=== PATIENT | female | born 1960 | race Caucasian/White ===

== ENCOUNTER 2022-10-01 08:36 | Outpatient (OUT) | payer BC, SELFPAY ==
[2022-10-01 09:01] LABS: Basophils Absolute Auto 0.1 10^3/uL (0.0-0.1); Basophils Percent Auto 1.1 % (0.2-2.0); Eosinophils Absolute Auto 0.3 10^3/uL (0.0-0.7); Eosinophils Percent Auto 3.4 % (0.9-7.0); Hematocrit 41.8 % (36.0-48.0); Hemoglobin 14.3 g/dL (12.0-16.0); Immature Granulocytes Abs Auto 0.02 10^3/uL (0.00-0.03); Immature Granulocytes Pct Auto 0.2 % (0.0-0.5); Lymphocytes Absolute Auto 1.7 10^3/uL (1.2-3.8); Lymphocytes Percent Auto 19.9 % (20.5-60.0); Mean Corpuscular HGB Conc 34.2 g/dL (29.9-35.2); Mean Corpuscular Hemoglobin 31.3 pg (26.7-34.0); Mean Corpuscular Volume 91.5 fL (81.0-99.0); Mean Platelet Volume 8.7 fL (9.5-13.5); Monocytes Absolute Auto 0.5 10^3/uL (0.3-0.8); Monocytes Percent Auto 5.5 % (1.7-12.0); Neutrophils Absolute Auto 5.8 10^3/uL (1.4-6.5); Neutrophils Percent Auto 69.9 % (43.0-75.0); Platelet Count 238 10^3/uL (150-450); Red Blood Count 4.57 10^6/uL (4.20-5.40); Red Cell Distribution Width 12.2 % (11.0-15.0); White Blood Count 8.3 10^3/uL (4.0-11.0)
[2022-10-01 09:38] LABS: Erythrocyte Sedimentation Rate 19 mm/hr (<=30)
[2022-10-01 10:59] LABS: Alanine Aminotransferase 14 U/L (14-59); Albumin Level 3.8 g/dL (3.4-5.0); Alkaline Phosphatase 85 U/L (46-116); Aspartate Amino Transferase 17 U/L (15-37); BUN Creatinine Ratio 18.1; Bilirubin Total 0.2 mg/dL (0.2-1.0); Calcium 8.9 mg/dL (8.5-10.1); Carbon Dioxide 27.1 mmol/L (21.0-32.0); Chloride 99 mmol/L (98-107); Estimated GFR (African America >60 (>=60); Estimated GFR (Non-African Ame >60 (>=60); Globulin 3.7 g/dL; Glucose 121 mg/dL (74-106); Potassium 4.1 mmol/L (3.5-5.1); Sodium 135 mmol/L (136-145); Total Protein 7.5 g/dL (6.4-8.2)
== END 2022-10-01 08:37 | disposition home or self-care (01) ==
LOC: LAB 08:37
PROVIDERS: PCP Family Medicine
DX: M13.0 Polyarthritis, unspecified (principal); R76.0 Raised antibody titer; Z79.899 Other long term (current) drug therapy
CPT/HCPCS: 36415; 80053; 85025; 85652

== ENCOUNTER 2022-12-23 17:23 | Emergency (ER) | payer OTHER, BC, SELFPAY ==
[2022-12-23 17:29] VITALS: BP 152/94; PULSE 102; RESP 20; TEMP 36.6; O2SAT 100; BMI 39.0
--- NOTE | 2022-12-23 17:39 | PC.NURSE ---
fall on right side buttocks with c/o pain to right side buttocks, and right hip. No redness, swelling or bruising to site. pt ambulates with a limp
--- NOTE | 2022-12-23 17:41 | PC.NURSE ---
small red area to lower back of head, skin intact and pt denies LOC. Pt alert and oriented at this time
[2022-12-23 18:17] VITALS: BP 155/92; PULSE 90; RESP 18; O2SAT 99
--- NOTE | 2022-12-23 18:33 | XR_ITS ---
The [address] [address] Patient Name: NICOLAS HARRIS MRN: [id number] date: 1960 Sex: F Assigned Patient Location: ED.MAIN Current Patient Location: ER Accession/Order Number: [id number] Exam Date: 12/23/2022 19:02 Report Date: 12/23/2022 19:30 At the request of: JUNIE MARTÍNEZ Procedure: XR hip RT 2V w/ pelvis EXAM: XR hip RT 2V w/ pelvis HISTORY: Fall COMPARISON: X-rays 10/13/2019 TECHNIQUE: AP pelvis and 2 views of the right hip FINDINGS: No fracture, dislocation, subluxation or osseous lesion. Moderate right hip joint space narrowing and osteophytes. Mild left hip joint degenerative changes. The pubic symphysis and sacroiliac joints are unremarkable. Postoperative changes at L4-L5. XR/XR hip RT 2V w/ pelvis IMPRESSION: Right greater than left hip degenerative changes with no visualized acute irregularity. Electronically authenticated by: YANY MCCORD Date: 12/23/2022 19:30
--- NOTE | 2022-12-23 18:42 | CT_ITS ---
The [address] [address] Patient Name: NICOLAS HARRIS MRN: [id number] date: 1960 Sex: F Assigned Patient Location: ER Current Patient Location: ER Accession/Order Number: [id number] Exam Date: 12/23/2022 18:52 Report Date: 12/23/2022 19:15 At the request of: JUNIE MARTÍNEZ Procedure: CT head/brain wo con EXAM: CT head/brain wo con HISTORY: chi . This is a 62-year-old with multiple episodes of falling down and head injuries. The patient is on blood thinners. COMPARISON: None. TECHNIQUE: Multi slice thin computed tomograms of the head were obtained, with sagittal and coronal reconstructions. FINDINGS: The ventricles are not enlarged, the lateral ventricles are symmetric and the third ventricles in the midline. The sylvian fissures and cortical sulci are unremarkable. There is no evidence of an intracranial hemorrhage, mass lesion or apparent acute infarct. The cerebellum and visualized brainstem are intact. The visualized paranasal sinuses are clear. The frontal sinuses are undeveloped. The middle ears are aerated. The mastoid sinuses are clear. There is no apparent acute skull fracture. CT/CT head/brain wo con IMPRESSION: There is no evidence of an intracranial hemorrhage, mass lesion or apparent acute infarct. The visualized paranasal sinuses are clear. There is no apparent acute skull fracture. Comparison with a previous study may be helpful. If further evaluation is clinically indicated at this time than perhaps an MRI the brain would be helpful. Electronically authenticated by: MAI TANNER Date: 12/23/2022 19:15
--- NOTE | 2022-12-23 18:42 | ECG_ITS ---
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
--- NOTE | 2022-12-23 18:47 | ED_ITS ---
HPI - General Adult General Chief complaint: Extremity Injury, Lower Stated complaint: hip injury, back of head..on blood thinners Source: patient Mode of arrival: walk-in Limitations: no limitations History of Present Illness HPI narrative: Patient is a 62yo Female who is presenting to the Emergency Room with chief complaint of a worker's comp injury along with A near syncopal episode. 3:30 Friday morning, patient was at work, she works in a [employer]. They have new slippery wood floors. Patient went to go sit down, the chair slid out from underneath her, she had fallen and landing on her right buttocks/right hip. She did hit the back of her head as well. Patient does take a look was 20 mg a day for blood clots. Patient currently does not have a headache or neck pain. Patient is complaining of right buttock pain, right hip pain that does not radiate. Patient then last evening while at home had lightheaded dizzy spell where she fell again. 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 Kvng garcia had no vertigo. She has no headache. However patient did lose her balance and fell again landing on her right buttock/hip, hitting the back of her head again on a hard object. Patient currently has no headache. No neck pain. No chest pain or shortness of breath. Most the patient's pain is to the right buttock, right hip area. Patient stated that she filled out worker's comp paperwork for the fall early Friday morning at 3:30 AM. The 2nd fall happened at home last evening. 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 All systems are negative except as noted/marked. All systems reviewed and otherwise negative. . Nurses note and vital signs reviewed and patient is not hypoxic. General: The patient appears well and in no apparent distress. Patient is resting comfortably on cart. Patient is not toxic, lethargic, or listless Skin: Warm, dry, no pallor noted. There is no rash noted. No petechiae, purpura. Head: Normocephalic, atraumatic Eye: Normal conjunctiva, no drainage, EOMI. PERRL Ears, Nose, Mouth, and Throat: oral mucosa is moist. Nares patent. Mouth without vesicles. Cardiovascular: Regular Rate and Rhythm, no murmur, gallop, rub Respiratory: Patient is in no distress, no accessory muscle use, lungs are c lear to auscultation, no wheezing, rales or rhonchi Back: Patient has moderate tendernness to palpation to the right gluteus misty, patient has no ecchymosis or hematomas palpated to the right gluteus misty. Patient has moderate tenderness to palpation to the right piriformis muschle, positive straight leg raising test on the right. Patient has chronic pain to bilateral knees and ankles secondary to arthritis and age per patient history. No new injury from the fall at work or at home last evening. Patient has no signs of saddle and a seizure cauda equina. no CVA tenderness bilaterally to percussion. No CT LS midline pain GI: soft, obese, no tenderness to palpation, no masses appreciated. No rebound, guarding, or rigidity noted. No flank pain bilateral, No distention Musculoskeletal: Patient has full range of motion of all of the extremities He says right lower extremity. 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 Otherwise no motor, sensory, or focal neurological deficits Neurological: A&O x3, normal speech Psychiatric: Cooperative Related Data Allergies Allergy/AdvReac Type Severity Reaction Status Date / Time Sulfa (Sulfonamide Allergy Intermediate Verified 12/23/22 17:34 Antibiotics) Exam Constitutional Vital Signs, click to edit/add: Last Vital Signs Temp 97.9 F 12/23/22 17:29 Pulse 90 12/23/22 18:17 Resp 18 12/23/22 18:17 BP 155/92 H 12/23/22 18:17 Pulse Ox 99 12/23/22 18:17 O2 Del Method Room Air 12/23/22 17:29 Course Vital Signs Vital signs: Vital Signs Temperature 97.9 F 12/23/22 17:29 Pulse Rate 102 H 12/23/22 17:29 Respiratory Rate 20 12/23/22 17:29 Blood Pressure 152/94 H 12/23/22 17:29 Pulse Oximetry 100 12/23/22 17:29 Oxygen Delivery Method Room Air 12/23/22 17:29 Temperature 97.9 F 12/23/22 17:29 Pulse Rate 90 12/23/22 18:17 Respiratory Rate 18 12/23/22 18:17 Blood Pressure 155/92 H 12/23/22 18:17 Pulse Oximetry 99 12/23/22 18:17 Oxygen Delivery Method Room Air 12/23/22 17:29 Medical Decision Making MDM Narrative Medical decision making narrative: 2100 Patient will be transitioned to Dr. Luis through the patient's CT of the brain, x-ray, lab work, fell out Worker's Comp. paperwork, and disposition the patient.. ECG Data Attestation: I personally reviewed and interpreted this ECG as follows: (EKG interpretation. Normal sinus rhythm at 99 beats a minute. Normal axis deviation. No acute ST elevation, no acute ectopy. QTC of 396. Nonspecific ST changes.) Discharge Plan Discharge Patient Disposition: Still a Patient
[2022-12-23] MEDS: 0.9 % SODIUM CHLORIDE 1,000 ML 1000 ML IV (19:11)
[2022-12-23 19:35] LABS: Basophils Absolute Auto 0.1 10^3/uL (0.0-0.1); Basophils Percent Auto 0.8 % (0.2-2.0); Eosinophils Absolute Auto 0.1 10^3/uL (0.0-0.7); Eosinophils Percent Auto 0.9 % (0.9-7.0); Hemoglobin 15.5 g/dL (12.0-16.0); Immature Granulocytes Abs Auto 0.04 10^3/uL (0.00-0.03); Immature Granulocytes Pct Auto 0.4 % (0.0-0.5); Lymphocytes Absolute Auto 1.4 10^3/uL (1.2-3.8); Lymphocytes Percent Auto 15.5 % (20.5-60.0); Mean Corpuscular HGB Conc 33.7 g/dL (29.9-35.2); Mean Corpuscular Hemoglobin 31.7 pg (26.7-34.0); Mean Corpuscular Volume 94.1 fL (81.0-99.0); Mean Platelet Volume 8.8 fL (9.5-13.5); Monocytes Absolute Auto 0.5 10^3/uL (0.3-0.8); Monocytes Percent Auto 5.8 % (1.7-12.0); Neutrophils Percent Auto 76.6 % (43.0-75.0); Platelet Count 274 10^3/uL (150-450); Red Blood Count 4.89 10^6/uL (4.20-5.40); Red Cell Distribution Width 12.3 % (11.0-15.0); White Blood Count 9.2 10^3/uL (4.0-11.0)
--- NOTE | 2022-12-23 19:45 | PC.NURSE ---
this rn taking over patient care at this time. pt states that on friday going into friday morning at 3:30am pt was working at the [email or web address] and patient slipped out of chair and fell onto right hip and hit the back of her head. pt is on Eliquis for past blood clots. pt states that she filled out workmans comp paper work but was never seen in ER. pt states that friday morning around 7am she was in her bedroom at home and had a dizzy/lightheaded spell and fell. pt states she is unsure if she passed out or not. pt states the second time she fell she fell onto right hip again and hit the back of her head on a hard object. . pt states the reason for coming in tonight is because she fell a second time and was having pain to her right hip. pt denies any pain to head or neck at this time.
[2022-12-23 20:03] LABS: Troponin I High Sensitivity 108.7 pg/mL (4.0-51.3)
[2022-12-23 20:04] LABS: Anion Gap 9.5; Carbon Dioxide 25.5 mmol/L (21.0-32.0); Chloride 95 mmol/L (98-107); Glucose 117 mg/dL (74-106); Sodium 126 mmol/L (136-145)
[2022-12-23 20:05] LABS: BUN Creatinine Ratio 17.9; Calcium 8.7 mg/dL (8.5-10.1); Estimated GFR (African America >60 (>=60); Estimated GFR (Non-African Ame >60 (>=60)
[2022-12-23] MEDS: 0.9 % SODIUM CHLORIDE 1,000 ML 999 ML IV (20:20)
[2022-12-23 20:22] VITALS: BP 137/90; PULSE 98
[2022-12-23 21:32] VITALS: BP 150/67; PULSE 86
[2022-12-23 22:36] LABS: Troponin I High Sensitivity 111.8 pg/mL (4.0-51.3)
[2022-12-23 22:51] VITALS: BP 137/81; PULSE 96
[2022-12-24 00:22] VITALS: BP 150/90; PULSE 102
[2022-12-24] MEDS: ACETAMINOPHEN 325 MG TABLET 1000 MG PO (01:18)
== END 2022-12-24 01:47 | disposition short-term general hospital (02) ==
PROVIDERS: Emergency Medicine; Emergency Provider Internal Medicine; PCP Family Medicine
DX: S70.01XA Contusion of right hip, initial encounter (principal); S09.90XA Unspecified injury of head, initial encounter; R55 Syncope and collapse; R79.89 Other specified abnormal findings of blood chemistry; W19.XXXA Unspecified fall, initial encounter; G90.A Postural orthostatic tachycardia syndrome [POTS]; Z79.01 Long term (current) use of anticoagulants; E66.9 Obesity, unspecified; Z68.39 Body mass index [BMI] 39.0-39.9, adult
CPT/HCPCS: 36415; 70450; 73502; 80048; 84484; 85025; 93005; 96360; 96361; 99285

== ENCOUNTER 2023-02-26 15:54 | Outpatient (OUT) | payer BC, SELFPAY ==
[2023-02-26 16:11] LABS: Basophils Absolute Auto 0.1 10^3/uL (0.0-0.1); Basophils Percent Auto 1.3 % (0.2-2.0); Eosinophils Absolute Auto 0.2 10^3/uL (0.0-0.7); Eosinophils Percent Auto 3.2 % (0.9-7.0); Hematocrit 43.2 % (36.0-48.0); Hemoglobin 14.4 g/dL (12.0-16.0); Immature Granulocytes Abs Auto 0.01 10^3/uL (0.00-0.03); Immature Granulocytes Pct Auto 0.2 % (0.0-0.5); Lymphocytes Absolute Auto 1.4 10^3/uL (1.2-3.8); Lymphocytes Percent Auto 25.4 % (20.5-60.0); Mean Corpuscular HGB Conc 33.3 g/dL (29.9-35.2); Mean Corpuscular Volume 93.1 fL (81.0-99.0); Monocytes Absolute Auto 0.4 10^3/uL (0.3-0.8); Monocytes Percent Auto 6.6 % (1.7-12.0); Neutrophils Absolute Auto 3.5 10^3/uL (1.4-6.5); Neutrophils Percent Auto 63.3 % (43.0-75.0); Platelet Count 259 10^3/uL (150-450); Red Blood Count 4.64 10^6/uL (4.20-5.40); Red Cell Distribution Width 12.4 % (11.0-15.0); White Blood Count 5.6 10^3/uL (4.0-11.0)
[2023-02-26 16:21] LABS: Erythrocyte Sedimentation Rate 11 mm/hr (<=30)
[2023-02-26 16:58] LABS: Alanine Aminotransferase 23 U/L (14-59); Albumin Globulin Ratio 1.1; Albumin Level 3.8 g/dL (3.4-5.0); Alkaline Phosphatase 89 U/L (46-116); Anion Gap 10.1; Aspartate Amino Transferase 18 U/L (15-37); BUN Creatinine Ratio 17.9; Bilirubin Total 0.4 mg/dL (0.2-1.0); Calcium 8.8 mg/dL (8.5-10.1); Carbon Dioxide 31.3 mmol/L (21.0-32.0); Chloride 100 mmol/L (98-107); Estimated GFR (African America >60 (>=60); Estimated GFR (Non-African Ame >60 (>=60); Globulin 3.5 g/dL; Glucose 111 mg/dL (74-106); Potassium 4.4 mmol/L (3.5-5.1); Sodium 137 mmol/L (136-145); Total Protein 7.3 g/dL (6.4-8.2)
== END 2023-02-26 15:55 | disposition home or self-care (01) ==
PROVIDERS: PCP Family Medicine; Visit Provider Registered Nurse
DX: M13.0 Polyarthritis, unspecified (principal); Z79.899 Other long term (current) drug therapy; R78.0 Finding of alcohol in blood
CPT/HCPCS: 36415; 80053; 85025; 85652

== ENCOUNTER 2023-06-04 13:11 | Outpatient (OUT) | payer BC, SELFPAY ==
--- OUTSIDE RECORDS SUMMARY | 2023-06-04 13:20 | XMS_ITS | CCD ---
Author Name Unknown Address [address] [place] [address] Organization [facility] Care Team Providers Care [employer] Administrator Name Role Phone Merissa Chaudhary Primary Care Provider [phone] Sidra Potter Attending Provider MERISSA CHAUDHARY Primary Care Physician Merissa Chaudhary Unavailable MISC, DR HALEY Admitting Unavailable MISC, DR HALEY Attending Unavailable MERISSA CHAUDHARY Primary Care Unavailable MISC, DR HALEY Consulting Unavailable MISC, DR HALEY Admitting Unavailable MISC, DR HALEY Attending Unavailable MERISSA CHAUDHARY Primary Care Unavailable MISC, DR HALEY Consulting Unavailable MISC, DR HALEY Admitting Unavailable MISC, DR HALEY Attending Unavailable MERISSA CHAUDHARY Primary Care Unavailable MISC, DR HALEY Consulting Unavailable MERISSA CHAUDHARY Admitting Unavailable MERISSA CHAUDHARY Attending Unavailable MERISSA CHAUDHARY Primary Care Unavailable MERISSA CHAUDHARY Consulting Unavailable Virgilio Mckeon Unavailable JENNIFER ALARCON Attending Unavailable MILAGRO MANN Attending Unavailable MD Merissa Chaudhary Primary Care Provider MD Froilan Brown Admit Provider MD Petr Kowalski Attending Provider MD Merissa Chaudhary Primary Care Provider MD Froilan Brown Admit Provider MD Petr Kowalski Attending Provider Community, Outreach Attending Provider [phone] Petr Kowalski Attending Unavailable Froilan Brown Admitting Unavailable Merissa Chaudhary Primary Care Unavailable Chaudhary, Merissa E Primary Care Unavailable Community, Outreach Admitting Unavailable Community, Outreach Attending Unavailable MD Merissa Chaudhary Primary Care Provider [phone] GOLDIE, YANY Jc Attending Unavailable POCOS, YANY Jc Referring Unavailable POCOS, YANY Jc Referring Unavailable Pocos, Yany Jc Attending Unavailable Pocos, Yany Jc Referring Unavailable MERISSA CHAUDHARY Consulting Unavailable Pocos, Yany Jc Admitting Unavailable Pocos, Yany Jc Attending Unavailable Pocos, Yany Jc Referring Unavailable MERISSA CHAUDHARY Consulting Unavailable Allergies Allergy Classification Reported Allergen(s) Allergy Type Date of Onset Reaction(s) Facility Unclassified (1 source) Allergy to substance [facility] (13 sources) Codeine Drug Allergy Unknown [facility] Other (14 sources) Metoclopramide Drug Allergy 05-08-19 24 Unknown, Hives [facility] (13 sources) Sulfamethoxazole / Trimethoprim Drug Allergy Unknown [facility] Other (13 sources) Sulfonamides (Antibiotic) Drug allergy rash [facility] Other (3 sources) Codeine; Translations: [CODEINE] Drug Allergy 04-06-19 14 Hives [facility] Repository (1 source) Iothalamate Drug Allergy 04-06-19 14 [facility] Repository (1 source) Morphine Drug Allergy 04-12-19 14 [facility]ository (1 source) Sulfonamides (Antibiotic) Drug allergy (disorder) 04-06-19 14 [facility] (1 source) Metoclopramide; Translations: [METOCLOPRAMIDE HCL] Drug Allergy 03-11-[address] [facility] Repository (5 sources) Sulfonamides (Antibiotic); Translations: [SULFA (SULFONAMIDE ANTIBIOTICS)] Propensity to adverse reactions to drug (disorder) 03-11-20 14 Hives, Hives, rash [facility] (5 sources) Codeine Drug Allergy 02-25-20 14 Unknown [facility] Other (1 source) Codeine Drug Allergy 12-28-19 [facility] Repository (1 source) Metoclopramide Drug Allergy 12-28-19 [facility] (2 sources) Sulfamethoxazole Drug Allergy 12-28-19 [facility] Repository (2 sources) Trimethoprim Drug Allergy 12-28-19 [facility] Repository Medications Current Medications Medication Drug Class(es) Dates Sig (Normalized) Sig (Original) acetaminophen 500 mg oral tablet (3 sources) Start: 12-24-2022 take 500 mg by mouth twice daily Acetaminophen Active 500 MG PO Twice daily December 23, 2022 11:00pm acetaminophen 325 mg / HYDROcodone bitartrate 5 mg oral tablet (9 sources) Opioid Agonist Start: 02-12-2023 take 1 tablet by mouth every six hours HYDROcodone-Acetami nophen 5-325 MG 1 tablet as needed Orally every 6 hrs for 7 days Jan, Active Start: 09-12-2022 take 1 tablet by veronica th every six hours HYDROcodone-Acetaminophen 5-325 MG 1 tab let as needed Orally every 6 hrs for 30 days pt will pay out of pocket for entire amount Aug, Active Start: 04-29-2022 take 1 tablet by veronica th every six hours HYDROcodone-Acetaminophen 5-325 MG 1 tab let as needed Orally every 6 hrs for 30 days Apr, Active 24 hr amphetamine aspartate 2.5 mg / amphetamine sulfate 2.5 mg / dextroamphetamine saccharate 2.5 mg / dextroamphetamine sulfate 2.5 mg extended release oral capsule (2 sources) Central Nervous System Stimulant Start: 12-27-2022 take 1 capsule by mouth every twenty-four hours Adderall XR 10 MG 1 capsule in the morning Orally Once a day for 30 days Dec, Active hydroxychloroquine sulfate 200 mg oral tablet (17 sources) Antimalarial, Antirheumatic Agent Start: 05-20-2018 take 200 mg by mouth twice daily Hydroxychloroquine Active 200 MG PO Twice daily May 20, 2018 12:00am lamoTRIgine 150 mg oral tablet (14 sources) Mood Stabilizer, Anti-epileptic Agent Start: 05-20-2018 take 150 mg by mouth once daily Lamotrigine Active 150 MG PO Daily May 20, 2018 3:39pm Start: 05-20-2018 take 200 mg by mouth once yolanda y Lamotrigine Active 200 MG PO Daily May 20, 2018 12:00am take 1 tablet by veronica th every twenty-four hours lamoTRIgine 200 MG 1 tablet Orally Once a day for 90 days Active 24 hr metoprolol succinate 100 mg extended release oral tablet (20 sources) beta-Adrenergic Na Start: 05-20-2018 take 100 mg by mouth once daily Metoprolol Succinate Active 100 MG PO Daily May 20, 2018 3:39pm Start: 05-20-2018 take 50 mg by mouth once daily Metoprolol Succinate Active 50 MG PO Daily May 20, 2018 12:00am take 1 tablet by veronica every twenty-four hours Metoprolol Succinate ER 50 MG 1 tablet Orally Once a day Active Metoprolol Tartr ate Not-Taking midodrine hydrochloride 2.5 mg oral tablet (3 sources) alpha-Adrenergic Agonist take 1 tablet by mouth every eight hours Midodrine HCl 2.5 MG 1 tablet three times a day Active mupirocin 0.02 mg/mg topical ointment (13 sources) RNA Synthetase Inhibitor Antibacterial Start: Mupirocin 2 % 1 application Externally Twice a day for 5 day(s) Apr, Active pyridostigmine bromide 60 mg oral tablet (20 sources) Start: take 120 mg by mouth four times daily Pyridostigmine [place] Active 120 MG PO Four times daily December 23, 2022 11:00pm Start: 12-24-2022 End: 12-24-2022 take 120 mg by mouth once daily Pyridostigmine [place] Discontinued 120 MG PO Daily December 23, 2022 11:00pm December 24, 2022 7:13am Start: 12-24-2022 End: 05-08-2023 take 120 mg by mouth twice daily Pyridostigmine [place] Discontinued 120 MG PO Twice daily 0 December 23, 2022 11:00pm May 08, 2023 3:09pm take 2 tablets by mo [facility] every six hours pyRIDostigmine [place] 60 MG 2 tablets Orally 4 times a day Active take 1 tablet by veronica every four hours Pyridostigmine [place] 60 MG 1 tablet Orally every 4 hrs Active rivaroxaban 20 mg oral tablet (16 sources) Factor Xa Inhibitor Start: 12-24-2022 Rivaroxaban (Xarelto) 20 mg tablet Active 20 MG TABLET December 23, 2022 11:00pm rOPINIRole 0.5 mg oral tablet (5 sources) Nonergot Dopamine Agonist take 1 tablet by mouth once daily at bedtime rOPINIRole HCl 0.5 MG 1 tablet 1 to 3 hours before bedtime Orally Once a day Active SITagliptin 100 mg oral tablet (16 sources) Dipeptidyl Peptidase 4 Inhibitor Start: 12-24-2022 take 1 tablet by mouth once daily Sitagliptin Phosphate (Januvia) 100 mg tablet Active 100 MG PO Daily December 23, 2022 11:00pm sodium chloride 1000 mg oral tablet (2 sources) take 1 tablet by mouth every twenty-four hours Sodium Chloride 1 GM 1 tablet Orally daily for 90 days Active temazepam 15 mg oral capsule (9 sources) Benzodiazepine Start: 05-08-2023 take 1 capsule by mouth once daily at bedtime Temazepam (Restoril) 15 mg capsule Active 15 MG PO Daily at bedtime May 08, 2023 12:00am Start: 09-12-2022 take 1 capsule by mo uth every twenty-four hours Temazepam 15 MG 1 capsule at bedtime as needed Orally Once a day for 30 days Aug, Active tiZANidine 4 mg oral tablet (5 sources) Central alpha-2 Adrenergic Agonist take 1 tablet by mouth once daily at bedtime as needed tiZANidine HCl 4 MG TAKE 1 TABLET BY MOUTH EVERY DAY AT BEDTIME NEEDED for 90 days Active 24 hr venlafaxine 150 mg extended release oral capsule (20 sources) Serotonin and Norepinephrine Reuptake Inhibitor Start: 05-20-19 take 300 mg by mouth once daily Venlafaxine Active 300 MG PO Daily May 20, 2018 12:00am take 2 capsules by mouth once da tori Venlafaxine HCl ER 150 MG TAKE 2 CAPSULES BY MOUTH DAILY for 90 Active Effexor XR Not-T aking Completed/Discontinued Medications Medication Drug Class(es) Dates Sig (Normalized) Sig (Original) [id number] 200 actuat albuterol 0.09 mg/actuat metered dose inhaler (5 sources) beta2-Adrenergic Agonist Start: 07-19-2016 take 2 puff(s) by inhalation every six hours as needed Ventolin HFA 108 (90 Base) MCG/ACT 2 puffs as needed Inhalation every 6h prn Jun, Not-Taking benzonatate 100 mg oral capsule (5 sources) Non-narcotic Antitussive Start: 07-19-2016 take 1 capsule by mouth every eight hours Tessalon Perles 100 MG 1 capsule as needed Orally Three times a day Jun, Not-Taking ketorolac tromethamine 5 mg/ml ophthalmic solution (3 sources) Nonsteroidal Anti-inflammatory Drug, Cyclooxygenase Inhibitor Start: 12-24-2022 End: 05-08-2023 take 1 drop(s) into the eye(s) four times daily Ketorolac Discontinued 1 DROPS EYE-RIGHT Four times daily December 23, 2022 11:00pm May 08, 2023 3:08pm lisinopril 5 mg oral tablet (9 sources) Angiotensin Converting Enzyme Inhibitor Start: 05-20-2018 End: 12-24-2022 take 5 mg by mouth once daily Lisinopril Discontinued 5 MG PO Daily May 20, 2018 12:00am December 24, 2022 2:02am Lisinopril Not-T aking Omeprazole (5 sources) Proton Pump Inhibitor Omeprazole Not-Takin g traMADol hydrochloride 50 mg oral tablet (10 sources) Opioid Agonist Start: End: take 50 mg by mouth every eight hours Tramadol Discontinued 50 MG PO Q8H December 23, 2022 11:00pm May 08, 2023 3:10pm Start: 09-13-2022 take 1 tablet by veronica th three times daily as needed traMADol HCl 50 MG 1 tablet as needed Orally tid prn for 30 days Aug, Active warfarin sodium 10 mg oral tablet (9 sources) Vitamin K Antagonist Start: 05-20-2018 End: 12-24-2022 take 5 mg by mouth once daily Warfarin Discontinued 5 MG PO Daily May 20, 2018 12:00am December 24, 2022 2:03am Warfarin Sodium Not-Taking Problems Active Problems Problem Classification Problem Date Documented Da te Episodic/Chronic Anxiety disorders (3 sources) Anxiety; Translations: [Other specified anxiety disorders] Chronic Cardiac dysrhythmias (2 sources) Supraventricular tachycardia; Translations: [Supraventricular tachycardia] Onset: 2 Chronic Diabetes mellitus with complications (16 sources) Hyperglycemia due to type 2 diabetes mellitus; Translations: [Type 2 diabetes mellitus with hyperglycemia] Onset: 2 Chronic Disorders usually diagnosed in infancy, childhood, or adolescence (3 sources) Adult attention deficit hyperactivity disorder ; Translations: [Other specified behavioral and emotional disorders with onset usually occurring in childhood and adolescence] Chronic E Codes: Fall (5 sources) Fall; Translations: [Unspecified fall, initial encounter] 12-24-2022 Episodic Essential hypertension (2 sources) Essential (primary) hypertension; Translations: [Essential (primary) hypertension] Onset: 2 Chronic Fluid and electrolyte disorders (7 sources) Hyponatremia; Translations: [Hypo-osmolality and hyponatremia] Onset: 3 12-24-2022 Episodic Immunizations and screening for infectious disease (1 source) Raised antibody titer; Translations: [RAISED ANTIBODY TITER] Onset: 3 Episodic Malaise and fatigue (2 sources) Fatigue; Translations: [Other fatigue] Episodic Miscellaneous mental health disorders (9 sources) Primary insomnia; Translations: [Primary insomnia] Chronic Mood disorders (17 sources) Depressive disorder; Translations: [Depressive disorder] Onset: 4 Chronic Osteoarthritis (2 sources) Osteoarthritis; Translations: [Unspecified osteoarthritis, unspecified site] Onset: 4 Chronic Other acquired deformities (13 sources) Contracture of joint of hand; Translations: [Contracture, unspecified hand] Chronic Other aftercare (1 source) Other termite inspector (current) drug therapy; Translations: [OTH [facility] CURRENT DRUG THERAPY] Onset: 3 Episodic Other circulatory disease (2 sources) Postural orthostatic tachycardia syndrome ; Translations: [Postural orthostatic tachycardia syndrome (POTS)] Onset: 3 Episodic Other circulatory disease (1 source) Other specified symptoms and signs involving the circulatory and respiratory systems Episodic Other gastrointestinal disorders (13 sources) Irritable bowel syndrome; Translations: [Irritable bowel syndrome without diarrhea] Chronic Other gastrointestinal disorders (2 sources) Irritable bowel syndrome with diarrhea; Translations: [Irritable bowel syndrome with diarrhea] Chronic Other hereditary and degenerative nervous system conditions (12 sources) Resting tremor; Translations: [Other specified forms of tremor] Chronic Other hereditary and degenerative nervous system conditions (1 source) Other specified forms of tremor; Translations: [Resting tremor] Chronic Other hereditary and degenerative nervous system conditions (2 sources) Multi-system degeneration of the autonomic nervous system; Translations: [Multi-system degeneration of the autonomic nervous system] Onset: 3 Chronic Other hereditary and degenerative nervous system conditions (2 sources) Tremor; Translations: [Other specified forms of tremor] Chronic Other lower respiratory disease (2 sources) Other forms of dyspnea; Translations: [Other forms of dyspnea] Onset: 2 Episodic Other lower respiratory disease (2 sources) Pleuritic pain; Translations: [Pleurodynia] Episodic Other nervous system disorders (2 sources) Disorder of the autonomic nervous system, unspecified; Translations: [Disorder of the autonomic nervous system, unspecified] Onset: 3 Chronic Other non-traumatic joint disorders (5 sources) Polyarthritis, unspecified; Translations: [POLYARTHRITIS UNSPECIFIED] Onset: 2 Chronic Other non-traumatic joint disorders (13 sources) Arthralgia of the pelvic region and thigh; Translations: [Pain in right hip] Episodic Other non-traumatic joint disorders (2 sources) Pain in right hip joint; Translations: [Pain in right hip] Episodic Other non-traumatic joint disorders (3 sources) Hip pain; Translations: [Pain in right hip] 12-24-2022 Episodic Other nutritional; endocrine; and metabolic disorders (2 sources) Morbid obesity; Translations: [Morbid (severe) obesity due to excess calories] Onset: 4 Chronic Other nutritional; endocrine; and metabolic disorders (2 sources) Body mass index 40+ - severely obese; Translations: [Body mass index (BMI) 40.0-44.9, adult] Chronic Other nutritional; endocrine; and metabolic disorders (12 sources) Excessive thirst; Translations: [Polydipsia] Episodic Other nutritional; endocrine; and metabolic disorders (1 source) Polydipsia; Translations: [Polydipsia] Episodic Other screening for suspected conditions (not mental disorders or infectious disease) (6 sources) Raised cardiac enzyme or marker; Translations: [Other specified abnormal findings of blood chemistry] Onset: 3 12-24-2022 Episodic Other skin disorders (1 source) Disorder of the skin and subcutaneous tissue, unspecified Episodic Other upper respiratory disease (1 source) Other specified disorders of nose and nasal sinuses Episodic Other upper respiratory infections (15 sources) Bacterial sinusitis; Translations: [Chronic sinusitis, unspecified] Chronic Parkinson`s disease (15 sources) Parkinsonism; Translations: [Parkinson's disease] Chronic Phlebitis; thrombophlebitis and thromboembolism (6 sources) H/O: Deep vein thrombosis; Translations: [Personal history of other venous thrombosis and embolism] Onset: 3 12-24-2022 Episodic Pulmonary heart disease (2 sources) Primary pulmonary hypertension; Translations: [Primary pulmonary hypertension] Onset: 2 Chronic Pulmonary heart disease (15 sources) Pulmonary embolism; Translations: [Other pulmonary embolism without acute cor pulmonale] Onset: 4 Episodic Residual codes; unclassified (15 sources) Obstructive sleep apnea syndrome; Translations: [Obstructive sleep apnea (adult) (pediatric)] Onset: 4 Chronic Residual codes; unclassified (1 source) Obstructive sleep apnea (adult) (pediatric) Chronic Residual codes; unclassified (2 sources) Family history of breast cancer; Translations: [Family history of malignant neoplasm of breast] Episodic Rheumatoid arthritis and related disease (16 sources) Rheumatoid arthritis; Translations: [Rheumatoid arthritis, unspecified] Chronic Spondylosis; intervertebral disc disorders; other back problems (20 sources) Low back pain; Translations: [Lumbar pain] Onset: 5 Episodic Tuberculosis (1 source) Tuberculosis of spine Episodic Past or Other Problems Problem Classification Problem Date Documented Date Episodic/Chronic Acute bronchitis (2 sources) Acute bronchitis; Translations: [Acute bronchitis, unspecified] Onset: 07-13-2015 Episodic Cardiac dysrhythmias (2 sources) Tachycardia; Translations: [Tachycardia, unspecified] Onset: 07-13-2015 Episodic Diabetes mellitus without complication (2 sources) Hyperglycemia; Translations: [Hyperglycemia, unspecified] Onset: 04-11-2016 Episodic Other hematologic conditions (1 source) Other specified abnormalities of plasma proteins; Translations: [Other specified abnormalities of plasma proteins] Onset: 12-24-2022 Episodic Other non-traumatic joint disorders (5 sources) Pain in right hip; Translations: [Pain in joint, pelvic region and thigh] Onset: 12-24-2022 Episodic Other non-traumatic joint disorders (2 sources) Joint pain; Translations: [Pain in unspecified joint] Onset: 04-11-2016 Episodic Residual codes; unclassified (2 sources) Insomnia; Translations: [Insomnia, unspecified] Onset: 09-10-2018 Episodic Unclassified (2 sources) Lumbar pain M54.50 Unclassified (4 sources) Depressive disorder F32.A Results Test Name Value Interpretation Reference Range Facility BD Bone Density DEXAon 05-29 BD Bone Density DEXA Exam Date/Time: 05/29/2023 13:47 EST Reason for Exam: M58.89 Other specified disorders of bone density and structure, multiple sites Report IMPRESSION: The bone density measurements indicate OSTEOPENIA and places the patient at a mild to moderate increased risk for fracture. There may be a future risk of developing osteoporosis. Recommend follow-up exam in one year, sooner if clinically necessary. CLINICAL HISTORY: bone density evaluation COMPARISON: NONE. FINDINGS: Bone density measurements for the Left femoral neck are BMD 0.755g/cm2 Tscore -2.0 Age-matched Z score -1.5, Osteopenia Bone density measurements for the Right femoral neck are BMD 0.744g/cm2 Tscore -2.1 Age-matched Z score -1.6, Osteopenia Bone density measurements for the Left forearm are BMD 0.576g/cm2 Tscore -1.7 Age-matched Z score -0.7 osteopenia, FRAX SCORE 10 year probability of fracture: Major osteoporotic, 21.4% Hip fracture, 3.0% Note World Health Organization definition of osteoporosis and osteopenia for women: Normal = T score at or above -1.0 SD Osteopenia = T score between -1.0 and -2.5 SD Osteoporosis = T score at or below -2.5 SD Treatment recommendations per The Bone Health and Osteoporosis Foundation (BHOF): Consider initiating pharmacologic treatment in postmenopausal women and men \X2265\ 50 years of age who have the following: \X2013\Primary fracture prevention: \X25CB\T-score \X2264\ \X2212\ 2.5 at the femoral neck, total hip, lumbar spine, 33% radius (some uncertainty with existing data) by DXA. \X25CB\Low bone mass (osteopenia: T-score between \X2212\ 1.0 and \X2212\ 2.5) at the Report femoral neck or total hip by DXA with a 10-year hip fracture risk \X2265\ 3% or a 10-year major osteoporosis-relate d fracture risk \X2265\ 20% (i.e., clinical vertebral, hip, forearm, or proximal humerus) based on the US-adapted FRAX\XAE\ model. \X2013\Secondary fracture prevention: \X25CB\Fracture of the hip or vertebra regardless of BMD [4, 5]. \X25CB\Fracture of proximal humerus, pelvis, or distal forearm in persons with low bone mass (osteopenia: T-score between \X2212\ 1.0 and \X2212\ 2.5). The decision to treat should be individualized in persons with a fracture of the proximal humerus, pelvis, or distal forearm who do not have osteopenia or low BMD [12, 13]. Ordering Provider: Yany Cuellar FINAL REPORT Dictated: 05/30/2023 10:21 am Anam Ruff MD, V. Signed (Electronic Signature): 05/30/2023 10:21 am Signed by: Anam Ruff MD, V. Transcribed by: EUSEBIA Technologist: SENIA [facility] Consent for Treatmenton Consent for Treatment [id number] A6#1.00TIFF [facility] Consent for Treatment [id number] EA#1.00TIFF [facility] Physician Orderon 05-20-2023 Physician Order [id number] 14#1.00TIFF [facility] Physician Referralon 024 Physician Referral [id number] 712#1.00TIFF [facility] community outreach caroti don 02-28-2023 community outreach carotid [facility] [address] [place] [id number] Ultrasound Report Signed Patient: Nicolas Harris MR#: [id number] : 1960 Acct:[id number] Age/Sex: 62 / F ADM Date: 02/25/23 Loc: Room: Type: DEP REF Attending Dr: Minal Soto Ordering Provider: MINAL SOTO Date of Service: 02/25/23 US/ community outreach carotid: SCREENING Copies to: [facility],OUTREACH CAROTID DUPLEX INDICATION: Community outreach screening program. PROCEDURE: Color-flow duplex scanning is used to interrogate the extracranial carotid arterial system, as well as both vertebral arteries. The proximal right internal carotid artery shows a highest peak systolic velocity of 104 cm/s with an end-diastolic velocity of 30.4 cm/s . The mid internal carotid artery measures 134 cm/s peak systolic with an end-diastolic velocity of 36.7 cm/s . The distal segment measures 133 cm/s peak systolic with an end diastolic velocity of 36.7 cm/s . The velocities of the right common carotid artery are 126 cm/s peak systolic and 19.3 cm/s end- diastolic proximally and 73.9 cm/s peak systolic and 19.3 cm/s end-diastolic distally. The peak systolic velocity ratio of the internal to the common carotid artery is 1.81 . The proximal left internal carotid artery shows a highest peak systolic velocity of 132 cm/s with an end-diastolic velocity of 28 cm/s . The mid internal carotid artery measures 136 cm/s peak systolic with an end-diastolic velocity of 42.7 cm/s . The distal segment measures 108 cm/s peak systolic with an end diastolic velocity of 28 cm/s . The velocities of the left common carotid artery are 141 cm/s peak systolic and 28.7 cm/s end-diastolic proximally and 97.4 cm/s peak systolic and 25.2 cm/s end-diastolic distally. The peak systolic velocity ratio of the internal to the common carotid artery is 1.4 . US/ community outreach carotid IMPRESSION: NO HEMODYNAMICALLY SIGNIFICANT STENOSIS OF EITHER EXTRACRANIAL INTERNAL CAROTID ARTERY. BOTH VERTEBRAL ARTERIES ARE PATENT WITH ANTEGRADE FLOW. Impression dictated by: Carmelita Holman MD02/28/2023 10:51 AM Dictation Location: RAD-DOC-04 Tech: Ruby Kianna Transcribed By: CHRISTIAN 02/28/23 1051 Dictated By: Carmelita Holman MD 02/28/23 1050 Signed By: 02/28/23 1051 Normal [facility] Basic Metabolic Panelon 10-0 Anion gap [Moles/Vol] 9.5 mmol/L Normal 6.0-15.0 [facility] Comment on above: Performed By: #### B MP #### [facility] [address] Calcium [Mass/Vol] 8.8 mg/dL Normal 8.6-10.3 [facility] Comment on above: Performed By: #### B MP #### [facility] [address] Chloride [Moles/Vol] 104 mmol/L Normal 98-107 [facility] Comment on above: Performed By: #### B MP #### [facility] [address] CO2 [Moles/Vol] 25.8 mmol/L Normal 21.0-31.0 [facility] Comment on above: Performed By: #### B MP #### [address] Creatinine [Mass/Vol] 0.61 mg/dL Normal 0.60-1.20 [facility] Comment on above: Performed By: #### B MP #### [address] Creatinine Clr Calc Pharmacy 103.69 [facility] Comment on above: Result Comment: PERF ORMED BY: [place] [address] PATHOLOGIST BITUMINOUS DISTRIBUTOR OPERATOR HARVINDER GAGE M.D. Performed By: #### B MP #### [address] GFR/1.73 sq M.predicted MDRD (S/P/Bld) [Vol rate/Area] mL/min/{1.73_m2} [facility] Comment on above: Performed By: #### B MP #### [address] Glucose [Mass/Vol] 113 mg/dL High 70-100 [facility] Comment on above: Result Comment: [place] om Glucose Reference Range is dependent on time and content of last meal. Glucose of more than 200 mg/dL in a nonstressed, ambulatory subject supports the diagnosis of Diabetes Mellitus. ADA recommended reference range Performed By: #### B MP #### [address] [place] [address] [place] Potassium [Moles/Vol] 4.3 mmol/L Normal 3.5-5.1 [facility] Comment on above: Performed By: #### B MP #### [facility] [address] Sodium [Moles/Vol] 135 mmol/L Low 136-145 [facility] Comment on above: Performed By: #### B MP #### [facility] [address] [place] [address] Urea nitrogen [Mass/Vol] 8 mg/dL Normal 7-25 [facility] Comment on above: Performed By: #### B MP #### [address] Calcium [Mass/volume] in Ser um or PlasmaOrdered By: Froilan Brown on 12-24-2022 Calcium [Mass/Vol] 8.8 mg/dL 8.6-10.3 [facility] Carbon dioxide, total [Moles /volume] in Serum or PlasmaOrdered By: Froilan Brown on 12-24-2022 CO2 [Moles/Vol] 25.8 mmol/L 21.0-31.0 [facility] Chloride [Moles/volume] in S davi or PlasmaOrdered By: Froilan Brown on 12-24-2022 Chloride [Moles/Vol] 104 mmol/L 98-107 [facility] Creatinine [Mass/volume] in Serum or PlasmaOrdered By: Froilan Brown on 12-24-2022 Creatinine [Mass/Vol] 0.61 mg/dL 0.60-1.20 [facility] ECG 12 lead ECGon 12-24-2022 ECG 12 lead ECG [facility] [place] [address] [place] [address] Electrocardiograph Report Signed Patient: Nicolas Harris MR#: [id number] : 1960 Acct:[id number] Age/Sex: 62 / F ADM Date: 12/24/22 Loc: Room: [address] [place] [address] Type: DIS INOo Attending Dr: Petr Kowalski MD Ordering Provider: Petr Kowalski MD Date of Service: 12/24/2206/13/244 ECG/ECG 12 lead ECG: prn ekg Copies to: Test Reason : Blood Pressure : / mmHG Vent. Rate : 078 BPM Atrial Rate : 078 BPM P-R Int : 148 ms QRS Dur : 090 ms QT Int : 400 ms P-R-T Axes : 084 110 068 degrees QTc Int : 456 ms Sinus rhythm with marked sinus arrhythmia Right axis deviation Pulmonary disease pattern Abnormal ECG When compared with ECG of 24-DEC-2022 02:32, (Unconfirmed) Vent. rate has decreased BY 54 BPM T wave inversion no longer evident in Inferior leads T wave inversion no longer evident in Lateral leads Confirmed by REGINA HANKINS MD, FACC ([id number]) on 12/25/2022 10:57:22 AM Referred By: Electronically Signed By:REGINA HANKINS MD, FACC Transcribed By: MUS Signed By Sukhi Hankins MD 12/25/22 1057 Normal [facility] ECG 12 lead ECG [facility] [place] [address] [place] [address] Electrocardiograph Report Signed Patient: Nicolas Harris MR#: [id number] : 1960 Acct:[id number] Age/Sex: 62 / F ADM Date: 12/24/22 Loc: Room: [address] [place] [address] Type: DIS INOo Attending Dr: Petr Kowalski MD Ordering Provider: Petr Kowalski MD Date of Service: 12/24/2206/14/231 ECG/ECG 12 lead ECG: prn ekg Copies to: Test Reason : Blood Pressure : / mmHG Vent. Rate : 132 BPM Atrial Rate : 132 BPM P-R Int : 176 ms QRS Dur : 088 ms QT Int : 410 ms P-R-T Axes : 055 121 032 degrees QTc Int : 607 ms Sinus tachycardia Right axis deviation Septal infarct , age undetermined Abnormal ECG When compared with ECG of 23-DEC-2022 19:20, (Unconfirmed) Questionable change in QRS duration Septal infarct is now present Confirmed by REGINA HANKINS MD, FACC ([id number]) on 12/25/2022 10:57:18 AM Referred By: Electronically Signed By:REGINA HANKINS MD [facility] Transcribed By: MUS Signed By Sukhi Hankins MD 12/25/22 1057 Normal [facility] Glucose [Mass/volume] in Ser um or PlasmaOrdered By: Froilan Brown on 12-24-2022 Glucose [Mass/Vol] 113 mg/dL 70-100 [facility] Comment on above: ADA recommended refe rence rangeRandom Glucose Reference Range is dependent on time and content of last meal. Glucose of more than 200 mg/dL in a nonstressed, ambulatory subject supports the diagnosis of Diabetes Mellitus. No Panel InformationOrdered By: Froilan Brown on 12-24-2022 Estimated GFR (CKD-EPI) > 60.0 mL/Min [facility] Creatinine Clearance (Chem 103.69 [facility] Potassium [Moles/volume] in Serum or PlasmaOrdered By: Froilan Brown on 12-24-2022 Potassium [Moles/Vol] 4.3 mmol/L 3.5-5.1 [facility] Serum or plasma anion gap de terminationOrdered By: Froilan Brown on 12-24-2022 Anion gap [Moles/Vol] 9.5 mmol/L 6.0-15.0 [facility] Sodium [Moles/volume] in Ser um or PlasmaOrdered By: Froilan Brown on 12-24-2022 Sodium [Moles/Vol] 135 mmol/L 136-145 [facility] Troponin I High Sensitivityo n 12-24-2022 Troponin I High Sensitivity 7.7 pg/mL Normal 0.0-15.0 [facility] Comment on above: Result Comment: PERF ORMED BY: [facility] [address] [place] [address] PATHOLOGIST BITUMINOUS DISTRIBUTOR OPERATOR HARVINDER GAGE M.D. Performed By: #### H S TROP #### [facility] [address] Troponin I.cardiac [Mass/vol ume] in Serum or Plasma by Detection limit <= 0.01 ng/Ordered By: Froilan Brown on 12-24-2022 Troponin I.cardiac DL <= 0.01 ng/mL [Mass/Vol] 7.7 pg/mL 0.0-15.0 [facility] Urea nitrogen [Mass/volume] in Serum or PlasmaOrdered By: Froilan Brown on 12-24-2022 Urea nitrogen [Mass/Vol] 8 mg/dL 7-25 [facility] Telemedicineon 11-11-2022 Telemedicine [id number] Nicolas Harris Mu 1960 F Date Provider Department Center 11/11/2022 [facility] C[facility] Family History Problem Relation Age of Onset Breast cancer Mother 65 Lupus Sister Alcohol abuse Brother Other Niece Migraines Daughter Other Nephew Autoimmune disease Nephew Sudden Neg Hx Aneurysm Neg Hx Family Status - Relation Status Age at Mother Father Sister Brother Niece Alive Daughter Alive Daughter Alive Nephew Alive Neg Hx Level of Service:71209 [place] OFFICE/OUTPATIENT ESTABLISHED MOD MDM 30-39 MIN Normal [facility] Office Visiton 09-11-2022 Follow-up visit [id number] Nicolas Harris 1960 F Date Provider Department Center 09/11/2022 120-JENN[facility] ALARCON CARD [facility] No family history on file Level of Service:44592 [place] OFFICE/OUTPATIENT ESTABLISHED MOD MDM 30-39 MIN Reason for Visit and Comments: Follow-up [626639] - Yearly follow up Normal [facility] CBC AUTO DIFFon 05-27-2022 BASO # 0.1 103/ul Normal 0.0-0.1 [facility] Comment on above: Performed By: #### C BC #### [facility] [address] [place] [address] Dr. Domi Saleem Basophils/100 WBC (Bld) 1.2 % Normal 0.2-2.0 [facility] Comment on above: Performed By: #### C BC #### [facility] [address] [place] [address] Dr. Domi Saleem EO # 0.3 103/ul Normal 0.0-0.7 [facility] Comment on above: Performed By: #### C BC #### [facility] [address] [address] [address] Domi Saleem Eosinophils/100 WBC (Bld) 3.8 % Normal 0.9-7.0 [facility] Comment on above: Performed By: #### C BC #### [facility] [address] [place] [address] Dr. Domi Saleem Erythrocyte distribution width (RBC) [Ratio] 12.5 % Normal 11.0-15.0 [facility] Comment on above: Performed By: #### C BC #### [facility] [address] [place] [address] Dr. Domi Saleem Hematocrit (Bld) [Volume fraction] 42.5 % Normal 36.0-48.0 [facility] Comment on above: Performed By: #### C BC #### [facility] [address] [place] [address] Dr. Domi Saleem Hemoglobin (Bld) [Mass/Vol] 14.6 g/dL Normal 12.0-16.0 [facility] Comment on above: Performed By: #### C BC #### [facility] [address] [place] [address] Dr. Domi Saleem IG # 0.04 10e3/ul Critically high 0.00-0.03 [facility] Comment on above: Performed By: #### C BC #### [facility] [address] [place] [address] Dr. Domi Saleem IG % 0.6 % Critically high 0.0-0.5 [facility] Comment on above: Performed By: #### C BC #### [facility] [address] [place] [address] Dr. Domi Saleem LYMPH # 1.3 103/ul Normal 1.2-3.8 [facility] Comment on above: Performed By: #### C BC #### [facility] [address] [place] [address] Dr. Domi Saleem Lymphocytes/100 WBC (Bld) 18.5 % Critically low 20.5-60.0 [facility] Comment on above: Performed By: #### C BC #### [facility] [address] [place] [address] Dr. Domi Saleem MANUAL DIFF REQ NO Normal [facility] Comment on above: Performed By: #### C BC #### [facility] [address] [place] [address] Dr. Domi Saleem MCH (RBC) [Entitic mass] 31.1 pg Normal 26.7-34.0 [facility] Comment on above: Performed By: #### C BC #### [facility] [address] [place] [address] Dr. Domi Saleem MCHC (RBC) [Mass/Vol] 34.4 g/dL Normal 29.9-35.2 [facility] Comment on above: Performed By: #### C BC #### [facility] [address] [place] [address] Dr. Domi Saleem MCV (RBC) [Entitic vol] 90.4 fL Normal 81.0-99.0 [facility] Comment on above: Performed By: #### C BC #### [facility] [address] [place] [address] Dr. Domi Saleem MONO # 0.3 103/ul Normal 0.3-0.8 [facility] Comment on above: Performed By: #### C BC #### [facility] [address] [place] [address] Dr. Domi Saleem Monocytes/100 WBC (Bld) 4.2 % Normal 1.7-12.0 [facility] Comment on above: Performed By: #### C BC #### [facility] [address] [place] [address] Dr. Domi Saleem NEUT # 5.0 103/ul Normal 1.4-6.5 [facility] Comment on above: Performed By: #### C BC #### [facility] [address] [place] [address] Dr. Domi Saleem Neutrophils/100 WBC (Bld) 71.7 % Normal 43.0-75.0 [facility] Comment on above: Performed By: #### C BC #### [facility] [address] [place] [address] Dr. Domi Saleem Platelet mean volume (Bld) [Entitic vol] 8.6 fL Critically low 9.5-13.5 [facility] Comment on above: Performed By: #### C BC #### [facility] [address] [place] [address] Dr. Domi Saleem PLT 265 103/ul Normal 150-450 [facility] Comment on above: Performed By: #### C BC #### [facility] [address] [place] [address] Dr. Domi Saleem RBC 4.70 106/ul Normal 4.20-5.40 [facility] Comment on above: Performed By: #### C BC #### [facility] [address] [place] [address] Dr. Domi Saleem WBC 6.9 103/ul Normal 4.0-11.0 [facility] Comment on above: Performed By: #### C BC #### [facility] [address] [place] [address] Dr. Domi Saleem PROF 14(COMP METB)on 023 Albumin [Mass/Vol] 3.7 g/dL Normal 3.4-5.0 [facility] Comment on above: Performed By: #### C MP #### [facility] [address] [place] [address] Dr. Domi Saleem Albumin/Globulin [Mass ratio] 0.9 {ratio} Normal [facility] Comment on above: Performed By: #### C MP #### [facility] [address] [place] [address] Dr. Domi Saleem ALP [Catalytic activity/Vol] 101 U/L Normal 46-116 [facility] Comment on above: Performed By: #### C MP #### [facility] [address] [place] [address] Dr. Domi Saleem ALT [Catalytic activity/Vol] 15 U/L Normal 14-59 [facility] Comment on above: Performed By: #### C MP #### [facility] [address] [place] [address] Dr. Domi Saleem Anion gap [Moles/Vol] 11.9 mmol/L Normal [facility] Comment on above: Performed By: #### C MP #### [facility] [address] [address] [address] Domi Saleem AST [Catalytic activity/Vol] 16 U/L Normal 15-37 [facility] Comment on above: Performed By: #### C MP #### [facility] [address] [address] [address] Domi Saleem Bilirubin [Mass/Vol] 0.3 mg/dL Normal 0.2-1.0 [facility] Comment on above: Performed By: #### C MP #### [facility] [address] [address] [address] Domi Saleem Calcium [Mass/Vol] 9.0 mg/dL Normal 8.5-10.1 [facility] Comment on above: Performed By: #### C MP #### [facility] [address] [address] [address] Doim Saleem Chloride [Moles/Vol] 100 mmol/L Normal 98-107 [facility] Comment on above: Performed By: #### C MP #### [facility] [address] [address] [address] Domi Saleem CO2 [Moles/Vol] 29.0 mmol/L Normal 21.0-32.0 [facility] Comment on above: Performed By: #### C MP #### [facility] [address] [address] [address] Domi Saleem Creatinine [Mass/Vol] 0.69 mg/dL Normal 0.55-1.02 [facility] Comment on above: Performed By: #### C MP #### [facility] [address] [address] [address] Domi Saleem EGFR-AF [place] >60 Normal >=60 [facility] Comment on above: Performed By: #### C MP #### [facility] [address] [address] [address] Domi Saleem EGFR-NON AF [place] >60 Normal >=60 [facility] Comment on above: Performed By: #### C MP #### [facility] [address] [address] [address] Domi Saleem Globulin (S) [Mass/Vol] 4.2 g/dL Normal [facility] Comment on above: Performed By: #### C MP #### [facility] [address] [address] [address] Domi Saleem Glucose [Mass/Vol] 124 mg/dL Critically high 74-106 [facility] Comment on above: Performed By: #### C MP #### [facility] [address] [address] [address] Domi Saleem Potassium [Moles/Vol] 4.9 mmol/L Normal 3.5-5.1 [facility] Comment on above: Performed By: #### C MP #### [facility] [address] [address] [address] Domi Saleem Protein [Mass/Vol] 7.9 g/dL Normal 6.4-8.2 [facility] Comment on above: Performed By: #### C MP #### [facility] [address] [address] [address] Domi Saleem Sodium [Moles/Vol] 136 mmol/L Normal 136-145 [facility] Comment on above: Performed By: #### C MP #### [facility] [address] [address] [address] Domi Saleem Urea nitrogen [Mass/Vol] 9.0 mg/dL Normal 7.0-18.0 [facility] Comment on above: Performed By: #### C MP #### [facility] [address] [address] [address] Domi Saleem Urea nitrogen/Creatinine [Mass ratio] 13.0 mg/mg Normal [facility] Comment on above: Performed By: #### C MP #### [facility] [address] [address] [address] Domi Saleem SED RATE WESTERGRENon 2022 SED RATE 21 mm/hr Normal <=30 [facility] Comment on above: Performed By: #### S EDR #### [facility] [address] [address] [address] Domi Saleem CHEMISTRYOrdered By: SYSTEM SYSTEM on 02-11-2022 Anion gap [Moles/Vol] 14 mmol/L Normal 6 - 16 mEq/L [facility] Remisol Calcium [Mass/Vol] 9.2 mg/dL Normal 8.9 - 11. 1 mg/dL [facility] Chloride [Moles/Vol] 92 mmol/L Low 101 - 1 11 mmol/L [facility] CO2 [Moles/Vol] 28 mmol/L Normal 21 - 31 mmol/L [facility] Creatinine [Mass/Vol] 0.8 mg/dL Normal 0.5 - 1.3 mg/dL [facility] Remisol GFR/1.73 sq M.predicted among blacks MDRD (S/P/Bld) [Vol rate/Area] mL/min/1.73 m2 Normal >=59mL/min/1. 73 m2 [facility] Chem S GFR/1.73 sq M.predicted among non-blacks MDRD (S/P/Bld) [Vol rate/Area] mL/min/1.73 m2 Normal >=59mL/min/1. 73 m2 [facility] Chem S Glucose [Mass/Vol] 108 mg/dL Normal 55 - 199 mg/dL [facility] Potassium [Moles/Vol] 4.0 mmol/L Normal 3.5 - 5.3 mmol/L [facility] Sodium [Moles/Vol] 130 mmol/L Low 135 - 145 mmol/L [facility] Urea nitrogen [Mass/Vol] 16 mg/dL Normal 5 - 21 mg/d L [facility] Urea nitrogen/Creatinine [Mass ratio] 20 mg/mg Normal 10 - 20 [facility] HEMATOLOGYOrdered By: John Ellsworth on 02-11-2022 Erythrocyte distribution width (RBC) [Ratio] 13.2 % Normal 10.9 - 14.2 % [facility] Hematocrit (Bld) [Volume fraction] 42.8 % Normal 34.0 - 46.0 % [facility] Hemoglobin (Bld) [Mass/Vol] 15.1 g/dL Normal 12.0 - 16.0 gm/dL [facility] MCH (RBC) [Entitic mass] 31.6 pg Normal 27. 0 - 34.0 pg [facility] MCHC (RBC) [Mass/Vol] 35.2 g/dL Normal 31.4 - 36.0 gm/dL [facility] MCV (RBC) [Entitic vol] 89.7 fL Normal 80.0 - 100.0 fL [facility] Platelet mean volume (Bld) [Entitic vol] 6.8 fL Normal 6.4 - 10.8 fL [facility] Platelets (Bld) [#/Vol] 275.0 E9/L Normal 150. 0 - 500.0 E9/L [facility] RBC (Bld) [#/Vol] 4.8 E12/L Normal 4.3 - 5.9 E12/L [facility] WBC corrected for nucl RBC Auto (Bld) [#/Vol] 7.3 E9/L Normal 4.0 - 11.0 E9/L [facility] CBC AUTO DIFFon 11-19-2021 BASO # 0.1 103/ul Normal 0.0-0.1 [facility] Comment on above: Performed By: #### C BC #### [facility] [address] [place] [address] Dr. Domi Saleem Basophils/100 WBC (Bld) 0.9 % Normal 0.2-2.0 [facility] Comment on above: Performed By: #### C BC #### [facility] [address] [place] [address] Dr. Domi Saleem EO # 0.2 103/ul Normal 0.0-0.7 [facility] Comment on above: Performed By: #### C BC #### [facility] [address] [place] [address] Dr. Domi Saleem Eosinophils/100 WBC (Bld) 2.4 % Normal 0.9-7.0 [facility] Comment on above: Performed By: #### C BC #### [facility] [address] [place] [address] Dr. Domi Saleem Erythrocyte distribution width (RBC) [Ratio] 12.6 % Normal 11.0-15.0 [facility] Comment on above: Performed By: #### C BC #### [facility] [address] [place] [address] Dr. Domi Saleem Hematocrit (Bld) [Volume fraction] 44.4 % Normal 36.0-48.0 [facility] Comment on above: Performed By: #### C BC #### [facility] [address] [place] [address] Dr. Domi Saleem Hemoglobin (Bld) [Mass/Vol] 15.1 g/dL Normal 12.0-16.0 [facility] Comment on above: Performed By: #### C BC #### [facility] [address] [place] [address] Dr. Domi Saleem IG # 0.04 10e3/ul Critically high 0.00-0.03 [facility] Comment on above: Performed By: #### C BC #### [facility] [address] [place] [address] Dr. Domi Saleem IG % 0.5 % Normal 0.0-0.5 [facility] Comment on above: Performed By: #### C BC #### [facility] [address] [place] [address] Dr. Domi Saleem LYMPH # 1.6 103/ul Normal 1.2-3.8 [facility] Comment on above: Performed By: #### C BC #### [facility] [address] [place] [address] Dr. Domi Saleem Lymphocytes/100 WBC (Bld) 19.1 % Critically low 20.5-60.0 [facility] Comment on above: Performed By: #### C BC #### [facility] [address] [place] [address] Dr. Domi Saleem MANUAL DIFF REQ NO Normal [facility] Comment on above: Performed By: #### C BC #### [facility] [address] [place] [address] Dr. Domi Saleem MCH (RBC) [Entitic mass] 31.5 pg Normal 26.7-34.0 [facility] Comment on above: Performed By: #### C BC #### [facility] [address] [address] [address] Domi Saleem MCHC (RBC) [Mass/Vol] 34.0 g/dL Normal 29.9-35.2 [facility] Comment on above: Performed By: #### C BC #### [facility] [address] [place] [address] Dr. Domi Saleem MCV (RBC) [Entitic vol] 92.5 fL Normal 81.0-99.0 [facility] Comment on above: Performed By: #### C BC #### [facility] [address] [place] [address] Dr. Domi Saleem MONO # 0.5 103/ul Normal 0.3-0.8 [facility] Comment on above: Performed By: #### C BC #### [facility] [address] [place] [address] Dr. Domi Saleem Monocytes/100 WBC (Bld) 6.1 % Normal 1.7-12.0 [facility] Comment on above: Performed By: #### C BC #### [facility] [address] [place] [address] Dr. Domi Saleem NEUT # 5.8 103/ul Normal 1.4-6.5 [facility] Comment on above: Performed By: #### C BC #### [facility] [address] [place] [address] Dr. Domi Saleem Neutrophils/100 WBC (Bld) 71.0 % Normal 43.0-75.0 [facility] Comment on above: Performed By: #### C BC #### [facility] [address] [place] [address] Dr. Domi Saleem Platelet mean volume (Bld) [Entitic vol] 8.7 fL Critically low 9.5-13.5 [facility] Comment on above: Performed By: #### C BC #### [facility] [facility] [address] [place] [address] Dr. Domi Saleem PLT 246 103/ul Normal 150-450 [facility] Comment on above: Performed By: #### C BC #### [facility] [address] [address] [address] Domi Saleem RBC 4.80 106/ul Normal 4.20-5.40 [facility] Comment on above: Performed By: #### C BC #### [facility] [address] [address] [address] Domi Saleem WBC 8.2 103/ul Normal 4.0-11.0 [facility] Comment on above: Performed By: #### C BC #### [facility] [address] [place] [address] Dr. Domi Saleem GLYCOHEMOGLOBIN A1Con 2021 ADA RECOMMENDATION SEE BELOW Normal [facility] Comment on above: Result Comment: ADA RECOMMENDED LIMIT 4.0 - 6.0 ADA THERAPEUTIC TARGET < 7.0 ACTION SUGGESTED > 7.0 Performed By: #### A 1C #### [facility] [address] [place] [address] Dr. Domi Saleem Glucose [Mass/Vol] 117 mg/dL Normal [facility] Comment on above: Performed By: #### A 1C #### [facility] [address] [place] [address] Dr. Domi Saleem HbA1c (Bld) [Mass fraction] 5.7 % Normal 4.5-6.2 [facility] Comment on above: Performed By: #### A 1C #### [facility] [address] [place] [address] Dr. Domi Saleem PROF 14(COMP METB)on 022 Albumin [Mass/Vol] 4.0 g/dL Normal 3.4-5.0 [facility] Comment on above: Performed By: #### C MP #### [facility] [address] [place] [address] Dr. Domi Saleem Albumin/Globulin [Mass ratio] 1.1 {ratio} Normal [facility] Comment on above: Performed By: #### C MP #### [facility] [address] [place] [address] Dr. Domi Saleem ALP [Catalytic activity/Vol] 91 U/L Normal 46-116 [facility] Comment on above: Performed By: #### C MP #### [facility] [address] [address] [address] Domi Saleem ALT [Catalytic activity/Vol] 16 U/L Normal 14-59 [facility] Comment on above: Performed By: #### C MP #### [facility] [address] [address] [address] Domi Saleem Anion gap [Moles/Vol] 10.3 mmol/L Normal [facility] Comment on above: Performed By: #### C MP #### [facility] [address] [address] [address] Domi Saleem AST [Catalytic activity/Vol] 24 U/L Normal 15-37 [facility] Comment on above: Performed By: #### C MP #### [facility] [address] [place] [address] Dr. Domi Saleem Bilirubin [Mass/Vol] 0.5 mg/dL Normal 0.2-1.0 [facility] Comment on above: Performed By: #### C MP #### [facility] [address] [address] [address] Domi Saleem Calcium [Mass/Vol] 9.1 mg/dL Normal 8.5-10.1 [facility] Comment on above: Performed By: #### C MP #### [facility] [address] [address] [address] Domi Saleem Chloride [Moles/Vol] 95 mmol/L Critically low 98-107 [facility] Comment on above: Performed By: #### C MP #### [facility] [address] [address] [address] Domi Saleem CO2 [Moles/Vol] 27.4 mmol/L Normal 21.0-32.0 [facility] Comment on above: Performed By: #### C MP #### [facility] [address] [address] [address] Domi Saleem Creatinine [Mass/Vol] 0.77 mg/dL Normal 0.55-1.02 [facility] Comment on above: Performed By: #### C MP #### [facility] [address] [address] [address] Domi Saleem EGFR-AF EAST [place] >60 Normal >=60 [facility] Comment on above: Performed By: #### C MP #### [facility] [address] [address] [address] Domi Saleem EGFR-NON AF [place] >60 Normal >=60 [facility] Comment on above: Performed By: #### C MP #### [facility] [address] [address] [address] Domi Saleem Globulin (S) [Mass/Vol] 3.8 g/dL Normal [facility] Comment on above: Performed By: #### C MP #### [facility] [address] [place] [address] Dr. Domi Saleem Glucose [Mass/Vol] 141 mg/dL Critically high 74-106 [facility] Comment on above: Performed By: #### C MP #### [facility] [address] [address] [address] Domi Saleem Potassium [Moles/Vol] 4.7 mmol/L Normal 3.5-5.1 [facility] Comment on above: Performed By: #### C MP #### [facility] [address] [place] [address] Dr. Domi Saleem Protein [Mass/Vol] 7.8 g/dL Normal 6.4-8.2 [facility] Comment on above: Performed By: #### C MP #### [facility] [address] [address] [address] Domi Saleem Sodium [Moles/Vol] 128 mmol/L Critically low 136-145 [facility] Comment on above: Performed By: #### C MP #### [facility] [address] [address] [address] Domi Saleem Urea nitrogen [Mass/Vol] 14.0 mg/dL Normal 7.0-18.0 [facility] Comment on above: Performed By: #### C MP #### [facility] [address] [place] [address] Dr. Domi Saleem Urea nitrogen/Creatinine [Mass ratio] 18.2 mg/mg Normal [facility] Comment on above: Performed By: #### C MP #### [facility] [address] [place] [address] Dr. Domi Saleem SED RATE WESTERGRENon 2021 SED RATE 34 mm/hr Critically high <=30 [facility] Comment on above: Performed By: #### S EDR #### [facility] [address] [place] [address] Dr. Domi Saleem CBC AUTO DIFFon 07-18-2021 BASO # 0.1 103/ul Normal 0.0-0.1 [facility] Comment on above: Performed By: #### C BC #### [facility] [address] [place] [address] Dr. Domi Saleem Basophils/100 WBC (Bld) 1.2 % Normal 0.2-2.0 [facility] Comment on above: Performed By: #### C BC #### [facility] [address] [place] [address] Dr. Domi Saleem EO # 0.2 103/ul Normal 0.0-0.7 [facility] Comment on above: Performed By: #### C BC #### [facility] [address] [place] [address] Dr. Domi Saleem Eosinophils/100 WBC (Bld) 4.0 % Normal 0.9-7.0 [facility] Comment on above: Performed By: #### C BC #### [facility] [address] [place] [address] Dr. Domi Saleem Erythrocyte distribution width (RBC) [Ratio] 12.8 % Normal 11.0-15.0 [facility] Comment on above: Performed By: #### C BC #### [facility] [address] [place] [address] Dr. Domi Saleem Hematocrit (Bld) [Volume fraction] 45.2 % Normal 36.0-48.0 [facility] Comment on above: Performed By: #### C BC #### [facility] [address] [place] [address] Dr. Domi Saleem Hemoglobin (Bld) [Mass/Vol] 15.0 g/dL Normal 12.0-16.0 [facility] Comment on above: Performed By: #### C BC #### [facility] [address] [place] [address] Dr. Domi Saleem IG # 0.02 10e3/ul Normal 0.00-0.03 [facility] Comment on above: Performed By: #### C BC #### [facility] [address] [place] [address] Dr. Domi Saleem IG % 0.4 % Normal 0.0-0.5 [facility] Comment on above: Performed By: #### C BC #### [facility] [address] [place] [address] Dr. Domi Saleem LYMPH # 1.1 103/ul Critically low 1.2-3.8 [facility] Comment on above: Performed By: #### C BC #### [facility] [address] [place] [address] Dr. Domi Saleem Lymphocytes/100 WBC (Bld) 22.8 % Normal 20.5-60.0 [facility] Comment on above: Performed By: #### C BC #### [facility] [address] [place] [address] Dr. Domi Saleem MANUAL DIFF REQ NO Normal [facility] Comment on above: Performed By: #### C BC #### [facility] [address] [place] [address] Dr. Domi Saleem MCH (RBC) [Entitic mass] 31.4 pg Normal 26.7-34.0 [facility] Comment on above: Performed By: #### C BC #### [facility] [address] [place] [address] Dr. Domi Saleem MCHC (RBC) [Mass/Vol] 33.2 g/dL Normal 29.9-35.2 [facility] Comment on above: Performed By: #### C BC #### [facility] [address] [place] [address] Dr. Domi Saleem MCV (RBC) [Entitic vol] 94.8 fL Normal 81.0-99.0 [facility] Comment on above: Performed By: #### C BC #### [facility] [address] [place] [address] Dr. Domi Saleem MONO # 0.3 103/ul Normal 0.3-0.8 [facility] Comment on above: Performed By: #### C BC #### [facility] [address] [place] [address] Dr. Domi Saleem Monocytes/100 WBC (Bld) 6.8 % Normal 1.7-12.0 [facility] Comment on above: Performed By: #### C BC #### [facility] [address] [place] [address] Dr. Domi Saleem NEUT # 3.2 103/ul Normal 1.4-6.5 [facility] Comment on above: Performed By: #### C BC #### [facility] [address] [place] [address] Dr. Domi Saleem Neutrophils/100 WBC (Bld) 64.8 % Normal 43.0-75.0 [facility] Comment on above: Performed By: #### C BC #### [facility] [address] [place] [address] Dr. Domi Saleem Platelet mean volume (Bld) [Entitic vol] 8.9 fL Critically low 9.5-13.5 [facility] Comment on above: Performed By: #### C BC #### [facility] [address] [place] [address] Dr. Domi Saleem PLT 222 103/ul Normal 150-450 [facility] Comment on above: Performed By: #### C BC #### [facility] [address] [place] [address] Dr. Domi Saleem RBC 4.77 106/ul Normal 4.20-5.40 [facility] Comment on above: Performed By: #### C BC #### [facility] [address] [place] [address] Dr. Domi Saleem WBC 5.0 103/ul Normal 4.0-11.0 [facility] Comment on above: Performed By: #### C BC #### [facility] [address] [place] [address] Dr. Domi Saleem PROF 14(COMP METB)on 022 Albumin [Mass/Vol] 3.6 g/dL Normal 3.4-5.0 [facility] Comment on above: Performed By: #### C MP #### [facility] [address] [place] [address] Dr. Domi Saleem Albumin/Globulin [Mass ratio] 1.0 {ratio} Normal [facility] Comment on above: Performed By: #### C MP #### [facility] [address] [place] [address] Dr. Domi Saleem ALP [Catalytic activity/Vol] 79 U/L Normal 46-116 [facility] Comment on above: Performed By: #### C MP #### [facility] [address] [place] [address] Dr. Domi Saleem ALT [Catalytic activity/Vol] 19 U/L Normal 14-59 [facility] Comment on above: Performed By: #### C MP #### [facility] [address] [place] [address] Dr. Domi Saleem Anion gap [Moles/Vol] 10.0 mmol/L Normal [facility] Comment on above: Performed By: #### C MP #### [facility] [address] [place] [address] Dr. Domi Saleem AST [Catalytic activity/Vol] 13 U/L Critically low 15-37 [facility] Comment on above: Performed By: #### C MP #### [facility] [address] [place] [address] Dr. Domi Saleem Bilirubin [Mass/Vol] 0.3 mg/dL Normal 0.2-1.0 [facility] Comment on above: Performed By: #### C MP #### [facility] [address] [place] [address] Dr. Domi Saleem Calcium [Mass/Vol] 8.4 mg/dL Critically low 8.5-10.1 [facility] Comment on above: Performed By: #### C MP #### [facility] [address] [address] [address] Domi Saleem Chloride [Moles/Vol] 101 mmol/L Normal 98-107 [facility] Comment on above: Performed By: #### C MP #### [facility] [address] [address] [address] Domi Saleem CO2 [Moles/Vol] 31.3 mmol/L Normal 21.0-32.0 [facility] Comment on above: Performed By: #### C MP #### [facility] [address] [place] [address] Dr. Domi Saleem Creatinine [Mass/Vol] 0.75 mg/dL Normal 0.55-1.02 [facility] Comment on above: Performed By: #### C MP #### [facility] [address] [place] [address] Dr. Domi Saleem EGFR-AF [place] >60 Normal >=60 [facility] Comment on above: Performed By: #### C MP #### [facility] [address] [address] [address] Domi Saleem EGFR-NON AF [place] >60 Normal >=60 [facility] Comment on above: Performed By: #### C MP #### [facility] [address] [place] [address] Dr. Domi Saleem Globulin (S) [Mass/Vol] 3.6 g/dL Normal [facility] Comment on above: Performed By: #### C MP #### [facility] [address] [place] [address] Dr. Domi Saleem Glucose [Mass/Vol] 120 mg/dL Critically high 74-106 [facility] Comment on above: Performed By: #### C MP #### [facility] [address] [place] [address] Dr. Domi Saleem Potassium [Moles/Vol] 5.3 mmol/L Critically high 3.5-5.1 [facility] Comment on above: Performed By: #### C MP #### [facility] [address] [address] [address] Domi Saleem Protein [Mass/Vol] 7.2 g/dL Normal 6.1-8.2 [facility] Comment on above: Performed By: #### C MP #### [facility] [address] [address] [address] Domi Saleem Sodium [Moles/Vol] 137 mmol/L Normal 136-145 [facility] Comment on above: Performed By: #### C MP #### [facility] [address] [address] [address] Domi Saleem Urea nitrogen [Mass/Vol] 20.0 mg/dL Critically high 7.0-18 .0 [facility] Comment on above: Performed By: #### C MP #### [facility] [address] [address] [address] Domi Saleem Urea nitrogen/Creatinine [Mass ratio] 26.7 mg/mg Normal [facility] Comment on above: Performed By: #### C MP #### [facility] [address] [address] [address] Domi Saleem SED RATE [facility] 2021 SED RATE 13 mm/hr Normal <=30 [facility] Comment on above: Performed By: #### S EDR #### [facility] [address] [address] [address] Domi SELLERSPon 08-20-2018 [facility] Visit ([facility]) Office ([facility]) ---- NICOLAS HARRIS ([id number]) 1960 F Date Time Provider Department 08/20/18 11:15 AM LEDY GILMAN HEMACL During your visit today, we recorded the following information about you: Temperature Pulse Respiration Blood pressure 98.6 degrees 61/minute 18/minute 142/80 Weight Height 115.5 kg 1.6 m Ledy Gilman MD 08/20/2018 11:48 AM Signed HPI Nicolas Harris is a 57 year old female who presents in consultation today August 20, 2018. Her history begins when she had lumps on her arms and was referred to dermatology. According to her these were rheumatoid nodules and the patient was started on Plaquenil. She has been worked up for lupus and lupus profile is negative. 5 years ago she had a DVT in the left leg with subsequent pulmonary embolus. Reviewing her labs she does have a positive lupus anticoagulant. She was also found to have a monoclonal gammopathy and is referred here for this. SPEP shows a monoclonal gammopathy of 0.3 (assume IgM but results blurred). Her lupus anticoag panel is positive. PAST MEDICAL HISTORY Diagnosis Date - Osteoarthritis PAST SURGICAL HISTORY Procedure Laterality Date - BACK SURGERY HX 2007 fusion L4-L5 disc with bone grafts, 2 rods and plates - COLONSCOPY SCREENING HIGH RISK 2013 - HYSTERECTOMY HX 1996 - LIGATE FALLOPIAN TUBE Tubal ligation - PAST SURGICAL HISTORY OF 2007 back(L4-L5), - REMOVAL GALLBLADDER - REMOVAL GALLBLADDER 1979 - VAGINAL HYSTERECTOMY 1989 Hysterectomy, vaginal Social History Tobacco Use - Smoking status: Current Every Day Smoker Packs/day: 1.00 Types: Cigarettes Substance Use Topics - Alcohol use: Not on file - Drug use: Not on file FAMILY HISTORY Problem Relation Age of Onset - Breast Cancer Mother Current Outpatient Medications: hydroxychloroquine (PLAQUENIL) 200 mg tablet Take by mouth twice daily. lamoTRIgine (LAMICTAL) 150 mg tablet Take 150 mg by mouth daily at bedtime. lisinopril (ZESTRIL, PRINIVIL) 5 mg tablet Take 5 mg by mouth once daily. metoprolol succinate ER (TOPROL XL) 100 mg Tb24 Take by mouth once daily. warfarin (COUMADIN) 5 mg tablet Take 10 mg by mouth daily as directed. Omeprazole 40 mg capsule Take 40 mg by mouth once daily. venlafaxine hcl(EFFEXOR XR 150 MG 24 HR CAP) Take two(2) times daily. No current facility-administer ed medications for this visit. ALLERGIES Allergen Reactions - Codeine Other: See Comments severe headaches - Reglan [Metoclopram* Intolerance - Sulfa (Sulfonamide * Itching REVIEW OF SYSTEMS GENERAL: No weight loss, malaise or fevers., SEE HPI HEENT: Negative for frequent or significant headaches, No changes in hearing or vision, no nose bleeds or other nasal problems NECK: Negative for lumps, goiter, pain and significant neck swelling RESPIRATORY: Negative for cough, wheezing or shortness of breath. CARDIOVASCULAR: Negative for chest pain, leg swelling or palpitations. GI: Negative for abdominal discomfort, blood in stools or black stools or change in bowel habits MUSCULOSKELETAL: Negative for joint pain or swelling, back pain or muscle pain. SKIN: Negative for lesions, rash, and itching. PSYCH: Negative for sleep disturbance, mood disorder and recent psychosocial stressors. HEMATOLOGY/LYMPHOLO GY: Negative for prolonged bleeding, bruising easily or swollen nodes. NEURO: No history of headaches, syncope, paralysis, seizures or tremors All other reviewed and negative other than HPI. PHYSICAL EXAM: BP 142/80 Pulse 61 Temp 37 ?C (98.6 ?F) (Oral) Resp 18 Ht 160 cm (5' 2.99 ) Wt 115.5 kg (254 lb 9.6 oz) SpO2 97% BMI 45.11 kg/m? General Appearance: alert and oriented, appearing in no acute distress Skin: skin color, texture, turgor normal, no suspicious rashes or lesions. Head: normal. Eyes: Anicteric sclera. Pupils are equally round. Extraocular movements are intact. . Ears: external ears normal Neck: Supple, no adenopathy; thyroid symmetric, normal size, no bruits. Back:no pain with ambulation Lungs: good air exchange overall Heart: RRR Abdomen: No obvious evidence of rebound tenderness or guarding Extremities: Extremities normal. No deformities, edema, or skin discoloration. Good capillary refill.. Musculoskeletal: Spine range of motion normal. Muscular strength intact. Peripheral Pulses: Normal. Neurologic: Gait normal. No gross cerebellar defects Psychiatric: the patient has an appropriate affect Hemoglobin (g/dL) Date Value 07/12/2009 16.2 Hematocrit (%) Date Value 07/12/2009 47.9 WBC (k/uL) Date Value 07/12/2009 7.14 Platelet Count (k/uL) Date Value 07/12/2009 225 ASSESSMENT/PLAN: 1. Lupus anticoagulant disorder (HCC) - ICD9: 289.81, ICD10: D68.62 (primary diagnosis) Will recheck today Maintain coumadin - ABS GRAN CT + CBC (FOR REMOTE [facility] USE) - COMP METABOLIC PANEL - PROTEIN ELECTROPHORESIS W/INTERP - IMMUNOFIXATION SCREEN, SERUM - KAPPA/GERMAIN,FREE,SER - LUPUS ANTICOAG PL 2. 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 Will check labs and see me in follow up - ABS GRAN CT + CBC (FOR REMOTE [facility] USE) - COMP METABOLIC PANEL - PROTEIN ELECTROPHORESIS W/INTERP - IMMUNOFIXATION SCREEN, SERUM - KAPPA/GERMAIN,FREE,SER - LUPUS ANTICOAG PL Ledy Gilman MD Referring Provider: CARMELITA SINGH JR [[id number]] Allergies As of Date: 08/20/2018 Noted Allergy Reaction CODEINE 07/12/2009 14 - Other: See Comments Comments: severe headaches REGLAN (METOCLOPRAMIDE HCL) 07/12/2009 5 - Intolerance SULFA (SULFONAMIDE ANTIBIOTICS) 08/19/2018 9 - Itching Date Reviewed: 08/20/2018 Reviewed by: Luann Beck - Fully Assessed Reason for Visit: positive spep/siep [Other] Cmt: new patient consult Primary Visit Diagnosis:Lupus anticoagulant disorder (HCC) [D68.62] Other Visit Diagnosis:Monoclona l gammopathy [D47.2] Order(s):ABS GRAN CT + CBC (FOR REMOTE [facility] USE) [SQRAGCBC] Order #: [id number] FUTURE COMP METABOLIC PANEL [SQCMP] Order #: [id number] FUTURE PROTEIN ELECTROPHORESIS W/INTERP [SQSEPG] Order #: [id number] FUTURE IMMUNOFIXATION SCREEN, SERUM [SQIFESC] Order #: [id number] FUTURE KAPPA/GERMAIN,FREE,SER [SQKLFRS] Order #: [id number] FUTURE LUPUS ANTICOAG PL [SQLUPUSP] Order #: [id number] FUTURE Disposition: Return in about 1 year (around 08/21/2019). Follow-up and Disposition History Recorded Prescriptions as of 08/20/2018 Sig: HYDROXYCHLOROQUINE 200 MG TAB* Take by mouth twice daily. LAMOTRIGINE 150 MG TABLET Take 150 mg by mouth daily at* LISINOPRIL 5 MG TABLET Take 5 mg by mouth once daily. METOPROLOL SUCCINATE ER 100 M* Take by mouth once daily. WARFARIN 5 MG TABLET Take 10 mg by mouth daily as * OMEPRAZOLE 40 MG CAPSULE,ESSENCE* Take 40 mg by mouth once yolanda* EFFEXOR XR 150 MG CAPSULE,EXT* Take two(2) times daily. Problem List As Of Date: 08/20/2018 (None) Encounter Status:Closed by LEDY GILMAN MD on 08/20/18 [facility] PROGRESSon 08-20-2018 Protein mass conc HNO ID: [id number] Author: Ledy Gilman Service: ? Author Type: Physician Type: Progress Notes Filed: 08/20/2018 11:48 AM Note Text: ÁNGEL Harris is a 57 year old female who presents in consultation today August 20, 2018. Her history begins when she had lumps on her arms and was referred to dermatology. According to her these were rheumatoid nodules and the patient was started on Plaquenil. She has been worked up for lupus and lupus profile is negative. 5 years ago she had a DVT in the left leg with subsequent pulmonary embolus. Reviewing her labs she does have a positive lupus anticoagulant. She was also found to have a monoclonal gammopathy and is referred here for this. SPEP shows a monoclonal gammopathy of 0.3 (assume IgM but results blurred). Her lupus anticoag panel is positive. PAST MEDICAL HISTORY Diagnosis Date - Osteoarthritis PAST SURGICAL HISTORY Procedure Laterality Date - BACK SURGERY HX 2007 fusion L4-L5 disc with bone grafts, 2 rods and plates - COLONSCOPY SCREENING HIGH RISK 2013 - HYSTERECTOMY HX 1996 - LIGATE FALLOPIAN TUBE Tubal ligation - PAST SURGICAL HISTORY OF 2007 back(L4-L5), - REMOVAL GALLBLADDER - REMOVAL GALLBLADDER 1979 - VAGINAL HYSTERECTOMY 1989 Hysterectomy, vaginal Social History Tobacco Use - Smoking status: Current Every Day Smoker Packs/day: 1.00 Types: Cigarettes Substance Use Topics - Alcohol use: Not on file - Drug use: Not on file FAMILY HISTORY Problem Relation Age of Onset - Breast Cancer Mother Current Outpatient Medications: hydroxychloroquine (PLAQUENIL) 200 mg tablet Take by mouth twice daily. lamoTRIgine (LAMICTAL) 150 mg tablet Take 150 mg by mouth daily at bedtime. lisinopril (ZESTRIL, PRINIVIL) 5 mg tablet Take 5 mg by mouth once daily. metoprolol succinate ER (TOPROL XL) 100 mg Tb24 Take by mouth once daily. warfarin (COUMADIN) 5 mg tablet Take 10 mg by mouth daily as directed. Omeprazole 40 mg capsule Take 40 mg by mouth once daily. venlafaxine hcl(EFFEXOR XR 150 MG 24 HR CAP) Take two(2) times daily. No current facility-administer ed medications for this visit. ALLERGIES Allergen Reactions - Codeine Other: See Comments severe headaches - Reglan [Metoclopram* Intolerance - Sulfa (Sulfonamide * Itching REVIEW OF SYSTEMS GENERAL: No weight loss, malaise or fevers., SEE HPI HEENT: Negative for frequent or significant headaches, No changes in hearing or vision, no nose bleeds or other nasal problems NECK: Negative for lumps, goiter, pain and significant neck swelling RESPIRATORY: Negative for cough, wheezing or shortness of breath. CARDIOVASCULAR: Negative for chest pain, leg swelling or palpitations. GI: Negative for abdominal discomfort, blood in stools or black stools or change in bowel habits MUSCULOSKELETAL: Negative for joint pain or swelling, back pain or muscle pain. SKIN: Negative for lesions, rash, and itching. PSYCH: Negative for sleep disturbance, mood disorder and recent psychosocial stressors. HEMATOLOGY/LYMPHOLO GY: Negative for prolonged bleeding, bruising easily or swollen nodes. NEURO: No history of headaches, syncope, paralysis, seizures or tremors All other reviewed and negative other than HPI. PHYSICAL EXAM: BP 142/80 Pulse 61 Temp 37 ?C (98.6 ?F) (Oral) Resp 18 Ht 160 cm (5' 2.99 ) Wt 115.5 kg (254 lb 9.6 oz) SpO2 97% BMI 45.11 kg/m? General Appearance: alert and oriented, appearing in no acute distress Skin: skin color, texture, turgor normal, no suspicious rashes or lesions. Head: normal. Eyes: Anicteric sclera. Pupils are equally round. Extraocular movements are intact. . Ears: external ears normal Neck: Supple, no adenopathy; thyroid symmetric, normal size, no bruits. Back:no pain with ambulation Lungs: good air exchange overall Heart: RRR Abdomen: No obvious evidence of rebound tenderness or guarding Extremities: Extremities normal. No deformities, edema, or skin discoloration. Good capillary refill.. Musculoskeletal: Spine range of motion normal. Muscular strength intact. Peripheral Pulses: Normal. Neurologic: Gait normal. No gross cerebellar defects Psychiatric: the patient has an appropriate affect Hemoglobin (g/dL) Date Value 07/12/2009 16.2 Hematocrit (%) Date Value 07/12/2009 47.9 WBC (k/uL) Date Value 07/12/2009 7.14 Platelet Count (k/uL) Date Value 07/12/2009 225 ASSESSMENT/PLAN: 1. Lupus anticoagulant disorder (HCC) - ICD9: 289.81, ICD10: D68.62 (primary diagnosis) Will recheck today Maintain coumadin - ABS GRAN CT + CBC (FOR REMOTE [facility] USE) - COMP METABOLIC PANEL - PROTEIN ELECTROPHORESIS W/INTERP - IMMUNOFIXATION SCREEN, SERUM - KAPPA/GERMAIN,FREE,SER - LUPUS ANTICOAG PL 2. 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 Will check labs and see me in follow up - ABS GRAN CT + CBC (FOR REMOTE [facility] USE) - COMP METABOLIC PANEL - PROTEIN ELECTROPHORESIS W/INTERP - IMMUNOFIXATION SCREEN, SERUM - KAPPA/GERMAIN,FREE,SER - LUPUS ANTICOAG PL Ledy Gilman MD Normal [facility] Vital Signs Date Time Vital Sign Value Performing Clinician Facility 05-08-2023 14:56-0500 Body height 157.48 cm MD Merissa Chaudhary Work Phone: [facility] 05-08-2023 14:56-0500 Body mass index (BMI) [Ratio] 42.6 kg/m2 MD Merissa Chaudhary Work Phone: [facility] 05-08-2023 14:56-0500 Body weight 105.74 kg MD Merissa Chaudhary Work Phone: [facility] 05-08-2023 14:56-0500 Diastolic blood pressure 85 mm[Hg] MD Merissa Chaudhary Work Phone: [facility] 05-08-2023 14:56-0500 Heart rate 85 /min MD Merissa Chaudhary Work Phone: [facility] 05-08-2023 14:56-0500 Systolic blood pressure 151 mm[Hg] MD Merissa Chaudhary Work Phone: [facility] 12-27-2022 14:45-0400 Body height 157.48 cm Merissa Chaudhary Other [facility] Other 12-27-2022 14:45-0400 Body mass index (BMI) [Ratio] 38.59 kg/m2 Merissa Chaudhary Other [facility] Other 12-27-2022 14:45-0400 Body weight 95.71 kg Merissa Chaudhary Other [facility] Other 12-27-2022 14:45-0400 Diastolic blood pressure 81 mm[Hg] Merissa Chaudhary Other [facility] Other 12-27-2022 14:45-0400 SaO2% (BldA) [Mass fraction] 99 % Merissa Chaudhary Other [facility] Other 12-27-2022 14:45-0400 Systolic blood pressure 116 mm[Hg] Merissa Chaudhary Other [facility] Other 12-24-2022 08:00-0400 Body temperature 98.2 [degF] MD Merissa Chaudhary Work Phone: [facility] 12-24-2022 08:00-0400 Diastolic blood pressure 78 mm[Hg] MD Merissa Chaudhary Work Phone: [facility] 12-24-2022 08:00-0400 Heart rate 93 /min MD Merissa Chaudhary Work Phone: [facility] 12-24-2022 08:00-0400 Respiratory rate 18 /min MD Merissa Chaudhary Work Phone: [facility] 12-24-2022 08:00-0400 SaO2% (BldA) [Mass fraction] 99 % MD Merissa Chaudhary Work Phone: [facility] 12-24-2022 08:00-0400 Systolic blood pressure 126 mm[Hg] MD Merissa Chaudhary Work Phone: [facility] 12-24-2022 02:42-0400 Body height 157.48 cm MD Merissa Chaudhary Work Phone: [facility] 12-24-2022 02:42-0400 Body weight 94.4 kg MD Merissa Chaudhary Work Phone: [facility] 11-15-2022 13:00-0400 Body height 157.48 cm Merissa Chaudhary Other [facility] Other 11-15-2022 13:00-0400 Body mass index (BMI) [Ratio] 39.69 kg/m2 Merissa Chaudhary Other [facility] Other 11-15-2022 13:00-0400 Body weight 98.43 kg Merissa Chaudhary Other [facility] Other 11-15-2022 13:00-0400 Diastolic blood pressure 78 mm[Hg] Merissa Chaudhary Other [facility] Other 11-15-2022 13:00-0400 Systolic blood pressure 140 mm[Hg] Merissa Chaudhary Other [facility] Other 09-12-2022 11:30-0400 Body height 157.48 cm Merissa Chaudhary Other [facility] Other 09-12-2022 11:30-0400 Body mass index (BMI) [Ratio] 39.14 kg/m2 Merissa Chaudhary Other [facility] Other 09-12-2022 11:30-0400 Body weight 97.07 kg Merissa Chaudhary Other [facility] Other 09-12-2022 11:30-0400 Diastolic blood pressure 85 mm[Hg] Merissa Chaudhary Other [facility] Other 09-12-2022 11:30-0400 Systolic blood pressure 157 mm[Hg] Merissa Chaudhary Other [facility] Other 04-29-2022 09:45-0500 Body height 157.48 cm Merissa Chaudhary Other [facility] Other 04-29-2022 09:45-0500 Body mass index (BMI) [Ratio] 47.55 kg/m2 Merissa Chaudhary Other [facility] Other 04-29-2022 09:45-0500 Body weight 117.94 kg Merissa Chaudhary Other [facility] Other 04-29-2022 09:45-0500 Diastolic blood pressure 88 mm[Hg] Merissa Chaudhary Other [facility] Other 04-29-2022 09:45-0500 SaO2% (BldA) [Mass fraction] 97 % Merissa Chaudhary Other [facility] Other 04-29-2022 09:45-0500 Systolic blood pressure 132 mm[Hg] Merissa Chaudhary Other [facility] Other 07-07-2020 07:58-0400 Body height 160.02 cm Merissa Chaudhary Work Phone: [facility] 07-07-2020 07:58-0400 Body weight 97.06 kg Merissa Chaudhary Work Phone: [facility] Encounters Encounter Date Encounter Type Care Provider Facility Start: 05-29-2023 ambulatory [place] [facility] Start: 05-29-2023 End: 05-30-2023 ambulatory MERISSA CHAUDHARY [place] Start: 05-29-2023 End: 05-29-2023 Patient encounter procedure Yany Cuellar [facility] Start: 05-16-2023 End: 05-16-2023 ambulatory YANY Jc GOLDIE Not Available Start: 05-08-2023 End: 05-08-2023 ambulatory MD Merissa Chaudhary Work Phone: [facility] Work Phone: Start: 05-08-2023 End: 05-08-2023 Patient encounter procedure MD Merissa Chaudhary Work Phone: [facility] Work Phone: Start: 02-25-2023 End: 02-25-2023 ambulatory Merissa Chaudhary Facility:[facility] Start: 02-25-2023 End: 02-25-2023 ambulatory MD Merissa Chaudhary Work Phone: [facility] Work Phone: Start: 02-25-2023 End: 02-25-2023 Departed Referred MD Merissa Chaudhary Work Phone: [facility] Work Phone: Start: 02-11-2023 End: 02-11-2023 ambulatory Merissa Chaudhary Other [facility] Other Start: 02-11-2023 Telephone encounter Merissa Chaudhary [facility] Start: 12-27-2022 End: 12-27-2022 ambulatory Merissa Chaudhary Other [facility] Other Start: 12-27-2022 Office outpatient vi sit 25 minutes Merissa Chaudhary [facility] Start: 12-25-2022 End: 12-25-2022 ambulatory Merissa Chaudhary Other [facility] Other Start: 12-25-2022 Telephone encounter Merissa Chaudhary [facility] Start: 12-24-2022 End: 12-24-2022 ambulatory Petr Kowalski Facility:[facility] Start: 12-24-2022 End: 12-24-2022 Evaluation and management of inpatient MD Merissa Chaudhary Work Phone: [facility] Work Phone: Start: 12-24-2022 End: 12-24-2022 observation encounter MD Merissa Chaudhary Work Phone: [facility] Work Phone: Start: 12-20-2022 End: 12-20-2022 ambulatory Merissa Chaudhary Other [facility] Other Start: 12-20-2022 Telephone encounter Merissa Chaudhary [facility] Start: 11-15-2022 End: 11-15-2022 ambulatory Merissa Chaudhary Other [facility] Other Start: 11-15-2022 Office outpatient vi sit 15 minutes Merissa Chaudhary [facility] Start: 11-11-2022 End: 11-11-2022 ambulatory MILAGRO MANN [facility] Start: 09-12-2022 End: 09-12-2022 ambulatory Merissa Chaudhary Other [facility] Other Start: 09-12-2022 Office outpatient vi sit 25 minutes Merissa Chaudhary [facility] Start: 09-12-2022 Telephone encounter Merissa Chaudhary [facility] Start: 09-11-2022 End: 09-11-2022 ambulatory JENNIFER ALARCON [facility] Start: 07-04-2022 End: 07-04-2022 ambulatory Merissa Chaudhary Other [facility] Other Start: 07-04-2022 Telephone encounter Merissa Chaudhary [facility] Start: 06-18-2022 End: 06-18-2022 ambulatory Virgilio Mckeon Other [facility] Other Start: 06-18-2022 Telephone encounter Virgilio Mckeon [facility] Start: 05-30-2022 End: 05-30-2022 ambulatory Merissa Chaudhary Other [facility] Other Start: 05-30-2022 Telephone encounter Merissa Chaudhary [facility] Start: 05-27-2022 End: 05-28-[address] DOCTOR VERAS Facility:[facility] Start: 04-29-2022 End: 04-29-2022 ambulatory Merissa Chaudhary Other [facility] Other Start: 04-29-2022 Office outpatient vi sit 15 minutes Merissa Chaudhary [facility] Start: 04-29-2022 Telephone encounter Merissa Chaudhary [facility] Start: 02-11-2022 ambulatory Facility:1 [id number] Start: 02-11-2022 End: 02-11-2022 Patient encounter procedure Yany Jc Pocos [facility] Start: 01-07-2022 End: 01-26-2022 Pre-admission assessment Ynay Jc Pocos [facility] Start: 11-20-2021 Adult health examination Merissa Chaudhary Other [facility] Other Start: 11-20-2021 Encounter for genera l adult medical examination without abnormal findings DR DOCTOR VERAS [facility] Start: 11-19-2021 End: 11-20-2021 ambulatory MERISSA CHAUDHARY Facility:[facility] Start: 11-19-2021 End: 11-20-2021 Encounter for general adult medical examination without abnormal findings DR DOCTOR VERAS Facility:[facility] Start: 07-18-2021 End: 07-19-[address] DOCTOR VERAS Facility:[facility] Start: 07-07-2020 End: 07-07-2020 Patient encounter procedure Merissa Chaudhary Work Phone: [facility] [place] Procedures Date Procedure Procedure Detail Performing Clinician Start: 07-07-2020 MRI of head Merissa cuba Work Phone: Plan of Treatment Date Care Activity Detail Author Start: 12-24-2022 [facility] Start: 12-24-2022 Hospital admission [facility] Start: 12-24-2022 [facility] Start: 12-24-2022 Sleep disorder assessment [facility] Work Phone: Payers Date Payer Category Payer Self-pay [id number] 1960 Unknown [id number] 2.16. [id number] 1960 Unknown [id number] 2.16.84 [id number] 1960 Unknown [id number] 2.16.84 [id number] 1960 Unknown [id number] 2.16.84 [id number] 1960 Unknown [id number] 2.16.84 [id number] 1960 Unknown [id number] 2.16.84 [id number] 1960 Unknown [id number] 2.16.84 [id number] 1960 Unknown [id number] 2.16.84 [id number] 1960 Unknown [id number] 2.16.8 [id number] 1960 Unknown [id number] 2.16.8 [id number] 1958 Unknown [id number] Private Health Insurance [id number] Unknown [id number] Unknown [id number] 2.16.8 [id number] Unknown [id number] 2.16.8 [id number] Social History Date Type Detail Facility Tobacco smoking stat [facility] Unknown if ever smoked [facility] Start: 1960 Sex Assigned At Female F [facility] Tobacco smoking status No Smokin g Status Entered [facility] Sex Assigned At Female [facility] Start: 12-24-2022 End: 12-24-2022 Tobacco smoking status NHIS Current some day smoker [facility] Start: 12-27-2022 Tobacco smoking stat [facility] Smoker (finding) [facility] Goals Date Patient Goal Desired Activity /State Functional Status Date Assessment Result Facility 12-24-2022 Functional status Patient at Baseline [facility] Work Phone: Mental Status Date Assessment Result Facility 12-24-2022 Cognitive function Cognitive Sta tus Patient at Baseline [facility] Work Phone: Clinical Notes 04-29-2022 to 02-11-2023 Note Date & Type Note Facility 02-11-2023 Evaluation note Encounter Date Diagnosis Assessment Notes Jan, Acute pain of right hip (ICD-10 - M25.551) [facility] Other 10-06-2023 Evaluation note* Encounter Date Diagnosis Assessment Notes Treatment Notes Treatment Clinical Notes Dec, Right carotid bruit (ICD-10 - R09.89) Will set up US with lab work. Dec, Hyponatremia (ICD-10 - E87.1) Add sodium tablet to help with low bp, hyponatremia. Dec, Situational anxiety (ICD-10 - F41.8) Discussed stressors and medical issues. Dec, Attention deficit disorder (ADD) in adult (ICD-10 - F98.8) Pt willing to try medication. This is a new med - will monitor results and followup in 3-4 weeks. [facility] Other 10-04-2023 Evaluation note* Encounter Date Diagnosis Assessment Notes Treatment Notes Treatment Clinical Notes Dec, Depressive disorder (ICD-10 - F32.A) [facility] Other 10-03-2023 History and physical note Author Froilan Brown [facility] December 24, 2022 4:06am Note Date/Time December 24, 2022 3: 58am [facility] [address] [place] [address] Hospitalist H&P Signed Patient: Nicolas Harris MR#: [id number] : 1960 Acct:[id number] Age/Sex: 62 / F Adm Date: 3 Loc: Room: [address] [place] [address] Type: ADM IN Attending Dr: Froilan Brown MD Copies to: MD Merissa Mosquera MD~ HPI DATE OF EXAMINATION: 12/24/22 CHIEF COMPLAINT: fall HISTORY OF PRESENT ILLNESS: The patient is a 62 year old woman with a history of HTN, DVT/PE on xarelto, POTS, NIDDM2, paroxysmal SVT who presented to [facility] after a fall. Per the patient on friday she was at work when a chair slid out from underneath her as she attempted to sit down- she hit her head on a hard object on the ground. she had some right hip pain after this fall, and took a muscle relaxer as a result. on friday evening, the patient got up from sleeping to walk to [facility] and fell- pt reports she felt wobbly after taking the flexeril. shedid not lose consciousness or feel dizzy and denies any chest pain or shortness of breath. Pt's right hip pain worsened over the course of Friday so she went to [facility] for evaluation on arrival there vital signs were within normal limits- ECG with NSR at 99 bpm and no acute ischemic changes. head CT and plain films of the right hip were unremarkable. the patient was noted to have an elevated troponin of 108 on arrival - repeat is 111. pt was transferred to this hospital for further evaluation The patient feels improved after she got tylenol at [facility]- the patient is somewhat irritated at being made to come here, and notes that her main concern in going to the ER was to make sure she did not have a hip fracture and that shedid not have an ICH given that she is on xarelto. PMHx: as above PSHx: hysterectomy, colectomy, back surgery SHx: no tobacco etoh or illlicit drug use FHx: negative for premature CVD ROS: 10 systems reviewed and were negative except as noted in the [facility] Medical History Apnea Arthritis Back pain Depression Diabetes mellitus, type 2 Hypertension Normal colonoscopy POTS (postural orthostatic tachycardia syndrome) SVT (supraventricular tachycardia) Surgical History H/O: hysterectomy History of colectomy Previous back surgery Family History Mother Breast cancer Stroke Father Diabetes Social History Smoking Status: Current some day smoker Tobacco Type: cigarettes Substance Use Type: None Meds Medications and Allergies Allergies Sulfa (Sulfonamide Antibiotics) Allergy (Verified 12/24/22 03:01) Hives Home Medications hydroxychloroquine 200 mg tablet 200 mg PO BID 05/20/18 [History Confirmed 12/24/22] lamotrigine 150 mg tablet 200 mg PO DAILY 05/20/18 [History Confirmed 12/24/22] metoprolol succinate 100 mg tablet,extended release 24 hr 50 mg PO DAILY 05/20/18 [History Confirmed 12/24/22] venlafaxine 150 mg capsule,extended release 24 hr 300 mg PO DAILY 05/20/18 [History Confirmed 12/24/22] acetaminophen 500 mg tablet 500 mg PO BID PRN Pain 12/24/22 [History Confirmed 12/24/22] ketorolac 0.5 % eye drops 1 drp Eye-Right QID 12/24/22 [History Confirmed 12/24/22] pyridostigmine bromide 180 mg tablet,extended release 120 mg PO DAILY 12/24/22 [History Confirmed 12/24/22] rivaroxaban 20 mg tablet (Xarelto) 20 mg 12/24/22 [History] sitagliptin phosphate 100 mg tablet (Januvia) 100 mg PO DAILY 12/24/22 [History Confirmed 12/24/22] tramadol 50 mg tablet 50 mg PO Q8H 12/24/22 [History Confirmed 12/24/22] Exam Physical Exam Vital Signs: Temp Pulse Resp BP Pulse Ox O2 Del Method 98.9 F 80 18 184/81 H 99 Room Air 12/24/22 02:42 12/24/22 02:42 12/24/22 02:42 12/24/22 02:42 12/24/22 02:42 12/24/22 03:43 Narrative: Gen: pt appears anxious but comfortable, pleasant and conversant HEENT: NC/AT mmm no oropharyngeal plaques/exudates neck: supple no LAD CV: RRR no m/r/g noted Chest : CTAB respirations even/unlabored no wheezing/rales abdomen: soft NT/ND bowel sounds x4 no palpable masses/organomegaly ext: no c/c/e distal pulses 2+ equal bilaterally neuro: a/o x4 answers questions appropriately moves all extremities no focal deficits skin: no rash Assessment & Plan Assessment/Plan (1) Fall: (2) Right hip pain: (3) Elevated troponin: Plan: minimal, flat pattern- no evidence of an acute coronary syndrome or other cardiac event causing elevated troponin. there was not a clear indication to measure troponin in this patient who w as seeking evaluation of hip pain after amechanical fall (4) Personal history of DVT (deep vein thrombosis): (5) Hyponatremia: Plan: mild (126 at [facility])- ?medication related Plan - admit to medicine - monitor on telemetry - restart home medications - will check STAT troponin now. if it is markedly increased compared to at [place], would ask cardiology to see pt. if stable/decreased, pt is not interested in having further workup - bmp now to monitor sodium VTE prophlyaxis- pt is already on full anticoagulation IP vs OBS Justification Based on differential dx, clinical care plan, and risk of adverse events, if untreated, in my clinical judgement this patient requires an acute care setting as: OBSERVATION because of an expectation of an under 2 midnight stay. Estimated length of stay (# of days): 1 Documented By: Froilan Brown MD 12/24/22 0357 Signed By: <Electronically signed by Froilan Brown MD> 12/24/22 0392 [facility] Work Phone: [phone]) 363-331709-29-2023 Evaluation note* Encounter Date Diagnosis Assessment Notes Treatment Notes Treatment Clinical Notes Nov, Depressive disorder (ICD-10 - F32.A) [facility] Other 08-25-2023 Evaluation note* Encounter Date Diagnosis Assessment Notes Treatment Notes Treatment Clinical Notes Oct, Depressive disorder (ICD-10 - F32.A) Mood improved. 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 She hasn't rec'd the midodrine yet, but will start it and followup w [facility] cardio [facility] Other 08-21-2023 Carrol Harris is a pleasant 62 year old female [employer] referred to Dr Cristóbal Jerome and the Syncope and Autonomic Disorders Clinic in the Heart [facility] Vascular Center at the [facility] for an evaluation of postural orthostatic tachycardia syndrome or POTS. She has a history of hypertension, diabetes (4 years), pulmonary hypertension with a history of pulmonary embolism (almost a decade ago) on Xarelto, supraventricular tachycardia, obstructive sleep apnea syndrome. On lamotrigine for anger problems . Has seen psychiatry. She was previously evaluated by nurse practitioner Aimee Alarcon in general cardiology approximately 6 months ago. She used a telemedicine platform today for continuity of care in our autonomic clinic. Chief Complaint: Continued POTS management. Healthy as a child and young adult. No syncope. Migraines until hysterectomy age 31. Two pregnancies. Two live births. Thirties and 40's healthy. [employer]. 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 Loss of consciousness. From here I started having issues -pain (shoulder, neck) . Evaluations over the years ' arthritis . Hx whiplash. Autoimmune disease. RA. Rheumatoid nodules.Plaquenil 4 years. Monoclonal gammopathy. Lupus anticoag panel negative HPI: In last year, noted dizziness and lightheaded, primarily with standing and upright. Especially with ambulation. No syncope. Off balance, dizzy swimmy head feeling. Worse with heat, dehydration. Improved with seated and resting. 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 Worse with walking and when I stop I get symptoms. No significant heart racing. Saw Aimee Alarcon in cardiology, dx with POTS . Evidently HR doubled. Told to increase fluids, added pyridostigmine. Improved with pyridostigmine. Review of Systems Constitutional: Positive for malaise/fatigue and night sweats. Negative for diaphoresis. Cardiovascular: Negative for syncope. Musculoskeletal: Positive for arthritis, back pain and neck pain. Negative for falls. Gastrointestinal: Positive for constipation. Hx IBS Genitourinary: Negative for incomplete emptying. Neurological: Positive for dizziness, light-headedness, loss of balance and tremors. Negative for seizures. Head tremor. Familial essential tremor. Saw neurology. Possible early PD. Psychiatric/Behavioral: Negative for depression, memory loss, suicidal ideas and thoughts of violence. Objective Constitutional: Appearance: Healthy appearance. Not in distress. Neurological: Mental Status: Alert and oriented to person, place and time. Comments: Slight head tremor. Assessment/Plan The primary encounter diagnosis was Autonomic neuropathy. Diagnoses of Parkinson's disease with neurogenic orthostatic hypotension (CMS/HCC) and Benign essential hypertension were also pertinent to this visit. Problem List Items Addressed This Visit Nervous Autonomic neuropathy - Primary Relevant Medications midodrine (Proamatine) 2.5 mg tablet Circulatory Benign essential hypertension Other Visit Diagnoses Parkinson's disease with neurogenic orthostatic hypotension (CMS/HCC) Relevant Orders Compression stockings The patient is suffering from an autonomic neuropathy, subset postural orthostatic tachycardia syndrome. The autonomic nervous system (ANS) is responsible for a number of body processes that are not under voluntary control including heart rate and blood pressure regulation, GI regulation, sweating, breathing, function and temperature regulation- to name the most important processes. Autonomic neuropathy is often associated with fluctuations in heart rate and blood pressure. She likely has a number of underlying mechanisms including autoimmune disease, diabetes and PD. We know a number of patients develop ANS dysregulation post exposure to pathogens including viruses, bacteria, sepsis, inoculations, surgeries, trauma. We believe this exposure likely results in an autoinflammatory or autoimmune type response which effects the ANS. Our research (Justus et. al, 2019 JA) and others have identified autoantibodies to autonomic receptors. Indeed, in the aforementioned study we evaluated 75 patients with postural orthostatic tachycardia syndrome (POTS), orthostatic intolerance (OI), dysautonomia and found that 92% of the sample had high circulating levels of a previously unidentified auto antibody to alpha-1 adrenergic smooth muscle receptors. In the positive participants, over 50% had ANS Mu receptor antibodies. We are currently enrolling patients with autonomic dysfunction (postural orthostatic tachycardia syndrome POTS/ orthostatic intolerance OI) which developed [id number] infection. We postulate that these patients possess similar autoantibodies to autonomic receptors. Likely these Covid long haulers develop an inflammatory/autoimmune response that effects the ANS. Neurogenic orthostatic hypotensio (more content not included)...[facility]06-22-2023 Evaluation note* Encounter Date Diagnosis Assessment Notes Treatment Notes Treatment Clinical Notes Aug, Depressive disorder (ICD-10 - F32.A) Declines psychiatry referral. Will increase lamictal to help with her mood problem. Aug, Acute pain of right hip (ICD-10 - M25.551) Chronic problem - Requests medication. Aug, Obstructive sleep apnea (ICD-10 - G47.33) Agrees her CPAP is quite old and needs replaced. Understands that treating her UYEN could improve her fatigue Aug, Arthritis, rheumatoid (ICD-10 - M06.9) Chronic problem Aug, Primary insomnia (ICD-10 - F51.01) Pt recalls treatment with temazepam in the past (years ago). Requests a refill. 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 Will increase pyridostigmine to 120 mg qid, continue adequate hydration, additional salt to diet. Monitor b/p and SBP 140-150 is ok with known POTS.[facility]06-21-2023 NoteUTP CARDIOLOGY PROGRESS NOTE HPI: Nicolas Harris is a 61 y.o. female here for POTS, HTN, Pulm HTN, current smoker HPI 61 yo female presented to clinic for routine f/U. Reports that she has dizziness/lightheadedness with position changes and up and walking. States dizziness becomes worse after she is up and walking for a bit of time. Denied syncope, chest pain, shortness of breath, orthopnea. Denied leg swelling. 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 Review of Systems Constitutional: Positive for fatigue. Respiratory: Positive for shortness of breath. Cardiovascular: Positive for chest pain and leg swelling. Neurological: Positive for dizziness and light-headedness. Negative for syncope. All other systems reviewed and are negative. Visit Vitals BP 129/73 (BP Location: Left arm, Patient Position: Sitting, BP Cuff Size: Large adult) Pulse 70 Ht 1.6 m (5' 3 ) Wt 97.1 kg (214 lb) SpO2 97% BMI 37.91 kg/m??? Smoking Status Every Day BSA 2.08 m??? Allergies Allergen Reactions Codeine Other Metoclopramide Hcl Other Sulfa (Sulfonamide Antibiotics) Other Medications: Current Outpatient Medications on File Prior to Visit Medication Sig Dispense Refill hydroxychloroquine (Plaquenil) 200 mg tablet Take 1 tablet by mouth in the morning and at bedtime. lamoTRIgine (LaMICtal) 150 mg tablet Take 1 tablet by mouth in the morning. metoprolol succinate XL (Toprol-XL) 50 mg 24 hr tablet Take 1 tablet (50 mg) by mouth once daily as directed. 90 tablet 3 omeprazole (PriLOSEC) [address] capsule if needed each day. rivaroxaban (Xarelto) 20 mg tablet Take 1 tablet every day by oral route for 90 days. SITagliptin phosphate (Januvia) 100 mg tablet Take 1 tablet every day by oral route for 90 days. venlafaxine XR (Effoxor-XR) 150 mg 24 hr capsule Take 2 capsules by mouth in the morning. [DISCONTINUED] pyridostigmine (Mestinon) 60 mg tablet Take 1 tablet (60 mg) by mouth in the morning, at noon, in the evening, and at bedtime. 360 tablet 2 No current facility-administered medications on file prior to visit. Physical Exam: Constitutional: Appearance: Normal appearance. Without apparent distress, obese, chronically ill HENT: Head: Normocephalic and atraumatic. Nose: Nose normal. Mouth/Throat: Mouth: Mucous membranes are moist. Eyes: Extraocular Movements: Extraocular movements intact. Conjunctiva/sclera: Conjunctivae normal. Neck: Vascular: No JVD. Cardiovascular: Rate and Rhythm: Normal rate and regular rhythm. Pulses: Dorsalis pedis pulses are 3 on the right side and 3on the left side. Posterior tibial pulses are 3 on the right side and 3 on the left side. Heart sounds: Normal heart sounds, S1 normal and S2 normal. Pulmonary: Effort: Pulmonary effort is normal. Breath sounds: Normal breath sounds. Abdominal: General: Bowel sounds are normal. Palpations: Abdomen is soft. Musculoskeletal: General: Normal range of motion. Cervical back: Normal range of motion. Right lower leg: No edema. Left lower leg: No edema. Skin: General: Skin is warm and dry. Capillary Refill: Capillary refill takes less than 2 seconds. Neurological: General: No focal deficit present. Mental Status: She is alert and oriented to person, place, and time. Psychiatric: Mood and Affect: Anxious Behavior: Behavior normal. Thought Content: Thought content normal. Judgment: Judgment normal. Labs: 05/2022 CBC stable Renal function normal Liver function normal Last lab values have been reviewed CV Testing: echo 07/2015 Global left ventricular systolic function is hyperdynamic (Visually estimated EF greater than 65%). Normal right ventricular systolic function. The right ventricle is mildly enlarged. The left atrium is mildly enlarged. Doppler studies suggest mildly elevated right sided pressures. No echocardiogram results found for the past 12 months Assessment/Plan: Benign essential hypertension Hypertension is stable Continue toprol Primary pulmonary hypertension (CMS/HCC) Reports continued LOPEZ Will repeat echocardiogram to assess cardiac function and rt sided pressures Dyspnea Continued LOPEZ will repeat echocardiogram to assess rt sided pressures, recommended pt to quit smoking. 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 Will increase pyridostigmine to 120 mg qid, continue adequate hydration, additional salt to diet. Monitor b/p and SBP 140-150 is ok with known POTS. Supraventricular tachycardia (CMS/HCC) Stable- continue toprol F/U with neurocardiogenic clinic for further management of POTS symptoms [facility]06-21-2023 NoteContinued LOPEZ will repeat echocardiogram to assess rt sided pressures, recommended pt to quit smoking.[facility]06-21-2023 NoteReports continued LOPEZ Will repeat echocardiogram to assess cardiac function and rt sided pressures [facility]06-21-2023 NoteHypertension is stable [facility]* Encounter Date Diagnosis Assessment Notes Treatment Notes Treatment Clinical Notes Apr, Skin lesion of left arm (ICD-10 - L98.9) Verbal consent obtained. Treated with cryofreeze. Pt will call if area does not resolve. 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 May need derm referral if it continues. Apr, Lumbar pain (ICD-10 - M54.50) Chronic problem Refilled med. 90 pills lasted 6 months. Requests a different muscle relaxer as cyclobenzaprine was not helpful in the past. Declines PT referral Apr, Sore in nose (ICD-10 - J34.89) Chronic problem. Agreed to retry ointment and consider ENT eval if area does not resolve. 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61 (F [facility]No Assessments Information Available [facility] noteNo InformationNort [facility] Other Evaluation note* Diagnosis Onset Date Resolution Status Elevated troponin acute Fall acute Hyponatremia acute Personal history of DVT (deep vein thrombosis) acute Right hip pain acute [facility] Work Phone: Evaluation noteNo assessment information available [facility] Work Phone: History general Narrative - Reported* Type Description Date Medical History hypertension Medical History SVT Medical History acid reflux Medical History IBS (irritable bowel syndrome) Medical History Depressive disorder Medical History Parkinsonism Medical History Resting tremor Medical History Bacterial sinusitis Medical History Lumbar pain Medical History Controlled type 2 di abetes mellitus with hyperglycemia, without long-term current use of insulin Medical History Arthritis, rheumatoid Medical History Sciatica Medical History Acute pain of right hip Medical History Polydipsia Medical History Pulmonary embolism Medical History Obstructive sleep apnea Surgical History cholecystectomy Surgical History hysterectomy Surgical History back surgery Surgical History right hand trigger fingers rele ase 02/2022 Hospitalization History see above [facility] Other History general Narrative - Reported* Type Description Date Medical History hypertension Medical History SVT Medical History acid reflux Medical History IBS (irritable bowel syndrome) Medical History Depressive disorder Medical History Parkinsonism Medical History Resting tremor Medical History Bacterial sinusitis Medical History Lumbar pain Medical History Controlled type 2 di abetes mellitus with hyperglycemia, without long-term current use of insulin Medical History Arthritis, rheumatoid Medical History Sciatica Medical History Acute pain of right hip Medical History Polydipsia Medical History Pulmonary embolism Medical History Obstructive sleep apnea Medical History [place] symdrome Surgical History cholecystectomy Surgical History hysterectomy Surgical History back surgery Surgical History right hand trigger fingers rele [facility] 02/2022 Hospitalization History see above [facility] Other Hospital Discharge instructions No data available for this section [facility] No data available for this section [facility] CenterPro[facility] note Author Petr Kowalski [facility] December 24, 2022 11:58am Note Date/Time December 24, 2022 11 :58am [facility] [address] [place] [address] Hospitalist Progress Note Signed Patient: Nicolas Harris MR#: [id number] : 1960 Acct:[id number] Age/Sex: 62 / F Adm Date: 3 Loc: Room: [address] [place] [address] Type: ADM INOo Attending Dr: Petr Kowalski MD Copies to: ~ Date of Service: 12/24/2022 Subjective Subjective Narrative: The patient is a 62 year old woman with a history of HTN, DVT/PE on xarelto, POTS, NIDDM2, paroxysmal SVT who presented to [facility] after a fall. Per the patient on Friday she was at work when a chair slid out from underneath her as she attempted to sit down- she hit her head on a hard object on the ground. she had some right hip pain after this fall, and took a muscle relaxer as a result. on friday evening, the patient got up from sleeping to walk to [facility] and fell- pt reports she felt wobbly after taking the flexeril. shedid not lose consciousness or feel dizzy and denies any chest pain or shortness of breath. Pt's right hip pain worsened over the course of Friday so she went to [facility] for evaluation On arrival there vital signs were within normal limits- ECG with NSR at 99 bpm and no acute ischemic changes. head CT and plain films of the right hip were unremarkable. the patient was noted to have an elevated troponin of 108 on arrival - repeat is 111. pt was transferred to this hospital for further evaluation The patient feels improved after she got Tylenol at [place]- the patient is somewhat irritated at being made to come here, and notes that her main concern in going to the ER was to make sure she did not have a hip fracture and that shedid not have an ICH given that she is on Xarelto. Interval history: During my encounter this morning, patient remained afebrile and hemodynamically stable. Denies any active complaints except for some pain in her right hip due to the fall. Her CT head at [facility] was unremarkable for ICH patient remained stable here with No focal deficits. Denies any chest pain, SOB whatsoever. Her troponin levels here WNL. Sodium level WNL. Exam Physical Exam Vital Signs: Temp Pulse Resp BP Pulse Ox O2 Del Method 98.2 F 93 H 18 126/78 99 Room Air 12/24/22 08:00 12/24/22 08:00 12/24/22 08:00 12/24/22 08:00 12/24/22 08:00 12/24/22 08:00 Narrative: Const General: cooperative HEENT Normal oropharyngeal mucosa without any ulcers or exudates Eyes: Conjunctiva normal Pulmonary Auscultation: clear to auscultation , no crackles, no wheezes Cardiovascular Rate: normal rate Rhythm: regular rhythm Heart Sounds: S1 normal, S2 normal and no murmurs GI Inspection: non-distended Palpation: soft, not firm and nontender. No rigidity or rebound. Deferred Neuro General: alert, awake and oriented x3. No obvious new focal deficit Musculoskeletal: normal range of motion Extrem General: no cyanosis, no pedal edema Psych Appearance: appropriate affect. Grossly normal Objective Lab Results 12/24/22 04:17 Meds Allergies and Active Meds Allergies Sulfa (Sulfonamide Antibiotics) Allergy (Verified 12/24/22 03:01) Hives Active Meds: Active Medications Generic Name Dose Route Start Last Admin Trade Name Freq PRN Reason Stop Dose Admin Acetaminophen 650 mg 12/24/22 03:49 12/24/22 06:15 Acetaminophen 325 Mg Tablet PO 12/24/23 03:48 650 mg Q6HR PRN Administration Pain Scale 1 - 3 or fever Hydroxychloroquine Sulfate 200 mg 12/24/22 09:00 12/24/22 09:27 Hydroxychloroquine Sulfate 200 Mg Tablet PO 12/24/23 08:59 200 mg BID SANAZ Administration Ketorolac Tromethamine 1 drops 12/24/22 09:00 12/24/22 09:27 Ketorolac 0.5% Op Soln 100 Drops/5 Ml Bottle EYE-RIGHT 12/24/23 08:59 Not Given QID SANAZ Lamotrigine 200 mg 12/24/22 09:00 12/24/22 09:26 Lamotrigine 100 Mg Tablet PO 12/24/23 08:59 200 mg DAILY SANAZ Administration Linagliptin 5 mg 12/24/22 09:00 12/24/22 09:27 Linagliptin 5 Mg Tablet PO 12/24/23 08:59 5 mg DAILY SANAZ Administration Metoprolol Succinate 50 mg 12/24/22 09:00 12/24/22 09:27 Metoprolol Succinate 50 Mg Tab.Er.24h PO 12/24/23 08:59 50 mg DAILY SANAZ Administration Pyridostigmine [place] 120 mg 12/24/22 09:00 12/24/22 08:36 Pyridostigmine [place] 60 Mg Tablet PO 12/24/23 08:59 120 mg BID SANAZ Administration Tramadol HCl 50 mg 12/24/22 04:00 12/24/22 06:15 Tramadol 50 Mg Tablet PO 06/22/23 03:59 Not Given Q8H SANAZ Venlafaxine HCl 300 mg 12/24/22 09:00 12/24/22 09:27 Venlafaxine Er 150 Mg Cap.Er.24h PO 12/24/23 08:59 300 mg DAILY SANAZ Administration A&P - Hospitalist Assessment/Plan (1) Fall: (2) Right hip pain: (3) Elevated troponin: Plan: minimal, flat pattern- no evidence of an acute coronary syndrome or other cardiac event causing elevated troponin. there was not a clear indication to measure troponin in this patient who w as seeking evaluation of hip pain after amechanical fall (4) Personal history of DVT (deep vein thrombosis): (5) Hyponatremia: Plan: mild (126 at [facility])- ?medication related Plan -Repeat Troponin here WNL. Sodium level WNL -CT head done at [facility] with no evidence of intracranial bleed. Patient remained stable with no focal deficits -X-ray of the hip done at [facility] with no evidence of fracture dislocation -Patient denies any active complaints at this time. No evidence of acute coronary syndrome Discussed with patient at bedside. Patient is very eager to go home. I do not have any indication for hospitalization at this time for here. concern for ACS is low at this time. Patient seems asymptomatic with normal troponin levels. No acute ischemic changes on EKG. patient is suitable for discharge at this time. Continue to follow-up as outpatient with your primary doctor. Discussed with patient at bedside, all question answered. Patient is in agreement and comfortable with discharge planning at this time. Documented By: Petr Kowalski MD 12/24/22 11 52 Signed By: <Electronically signed by Petr Kowalski MD> 12/24/22 1155 [facility] Work Phone: Summary Purpose Family History No Family History Records Found Relationship Condition Age at Onset Recorded Date/T karie Not Specified Malignant neoplasm of breast Unknown Cerebrovascular accident (CVA) Unknown father Diabetes mellitus Unknown Relationship Condition Age at Onset Recorded Date/T karie Not Specified Malignant neoplasm of breast Unknown Cerebrovascular accident (CVA) Unknown father Diabetes mellitus Unknown father Unknown Hypertension Unknown Chronic kidney disease Unknown family member Unknown Not Specified Malignant neoplasm Unknown History of stroke Unknown Unknown Advance Directives No Advanced Directives Records Found Advance Directive Response Recorded Date/ Time Advance Directives No April 07, 2018 1:57pm Advance Directive Response Recorded Date/ Time Advance Directives No April 07, 2018 12:57pm Chief Complaint and Reason for Visit Chief Complaint G20 Chief Complaint Elevated Troponin an d Syncope Reason for Visit Elevated troponin Fall Hyponatremia Personal history of DVT (deep vein thrombosis) Right hip pain Chief Complaint Elevated Troponin an d Syncope Screening Reason for Visit Elevated troponin Fall Hyponatremia Personal history of DVT (deep vein thrombosis) Right hip pain Chief Complaint Screening mental\physical health Additional Source Comments INFORMATION SOURCE (unrecogn ized section and content) DATE CREATED AUTHOR 08/29/2018 [facility] DATE CREATED AUTHOR AUTHOR'S ORGANIZ ATION 03/20/2022 [facility] DATE CREATED AUTHOR AUTHOR'S ORGANIZ ATION 05/29/2022 [facility] DATE CREATED AUTHOR AUTHOR'S ORGANIZ ATION 11/11/2022 [facility] DATE CREATED AUTHOR AUTHOR'S ORGANIZ ATION 05/02/2023 [facility] DATE CREATED AUTHOR AUTHOR'S ORGANIZ ATION 05/24/2023 [facility] DATE CREATED AUTHOR AUTHOR'S ORGANIZ ATION 05/30/2023 [facility] Patient Care team informatio n (unrecognized section and content) Team Status: Active Member Role Status Dates Merissa Chaudhary MD Primary Care Provider Active Team Status: Inactive Member Role Status Dates Merissa Chaudhary MD Primary Care Provider Active Froilan Brown MD Admit Provider Active Petr Kowalski MD Attending Provider Active Team Status: Inactive Member Role Status Dates Merissa Chaudhary MD Primary Care Provider Active [facility] Attending Provider Active Team Status: Inactive Member Role Status Dates Merissa Chaudhary MD Primary Care Provider Active Start: February 25, 2023 End: February 25, 2023 [facility] Attending Provider Active Sta rt: February 25, 2023 End: February 25, 2023 Team Status: Inactive Member Role Status Dates Merissa Chaudhary MD Primary Care Provide r, Attending Provider Active Start: May 08, 2023 End: May 08, 2023 REASON FOR VISIT (unrecogniz ed section and content) [place] ON ARMmessagelabsRefill Refillmedication messagecpapPAIN, ANXIETY, DEPRESSION2 month Follow uprefillrefillFRMCmessage Goals (unrecognized section and content) Goals may be documented in a n alternate section FOR RECORDS PERTAINING TO PATIENTS WHO ARE OR HAVE BEEN ENROLLED IN A CHEMICAL DEPENDENCY/SUBSTANCEABUSE PROGRAM, SOME INFORMATION MAY BE OMITTED. This clinical summary was aggregated from multiple sources. Caution should be exercised in using it in the provision of clinical care. This summary normalizes information from multiple sources, and as a consequence, information in this document may materially change the coding, format and clinical context of patient data. In addition, data may be omitted in some cases. CLINICAL DECISIONS SHOULD BE BASED ON THE PRIMARY CLINICAL RECORDS. [facility]. provides no warranty or guarantee of the accuracy or completeness of information in this document.
--- NOTE | 2023-06-04 13:57 | CA_ITS ---
Patient Name: NICOLAS HARRIS MR#: [id number] : 1960 Exam Date: 06/04/2023 Ordering Doctor: JENNIFER ALARCON ECHOCARDIOGRAM REPORT PROCEDURE: CA ECHO DOPPLER COMPLETE INDICATIONS: Other forms of dyspnea COMPARISON: None. DESCRIPTION: COMPLETE ECHOCARDIOGRAM Real-time transthoracic echocardiography with 2D, M-mode, spectral and color flow Doppler performed. QUALITY: Technical quality was good. LEFT VENTRICLE: Normal chamber size. Mild concentric left ventricular hypertrophy. LV EF: Global left ventricular systolic function is hyperdynamic. Visual estimation of left ventricular ejection fraction is 65-70%. No significant wall motion abnormalities. DIASTOLIC: Normal diastolic function. ATRIAL SEPTUM: Inadequately seen. LEFT ATRIUM: Mild dilatation. RIGHT ATRIUM: Normal chamber size. RIGHT VENTRICLE: Normal chamber size. Normal right ventricular systolic function. TRICUSPID VALVE: Normal mobility and thickness. No stenosis with trivial regurgitation. No evidence of pulmonary hypertension. RVSP 25mmHg MITRAL VALVE: Normal mobility and thickness. No evidence of mitral valve stenosis. There is no mitral annular calcification. Trivial mitral regurgitation. AORTIC VALVE: Normal trileaflet appearance. No visible sclerosis. Normal leaflet mobility. No evidence of aortic valve stenosis. No aortic regurgitation. AORTIC ROOT: Normal diameter and appearance. PULMONIC VALVE: Normal thickness and mobility. No stenosis. No regurgitation. PERICARDIUM: No evidence of pericardial effusion. IVC: Collapses with inspirations. CONCLUSION: 1. Global left ventricular systolic function is hyperdynamic; visually estimated ejection fraction 65 to 70% 2. Normal right ventricular size and systolic function 3. Mildly increased left ventricular wall thickness 4. The left atrium is mildly dilated 5. No significant valvular abnormalities Adult Echocardiography Procedure Report Left Ventricle LVEDD (3.7 - 5.6 cm): 4.69 cm LVESD (2.2 - 4.0 cm): 3.40 cm LVIVS thickness (0.6 - 1.2 cm): 1.23 cm LVPW thickness (0.5 - 1.0 cm): 1.16 cm e': 0.11 m/s E - e': 10.09 LVOT Max Gradient: 9.06 mm[Hg] LVOT Area (cm2): 1.50 m/s Peak Velocity (LVOT): 1.50 m/s Mean Velocity (LVOT): 0.88 m/s LVOT Diameter 2.20 cm Left Ventricular Ejection Fraction: 76.34 % Left Atrium LA Volume Index (2D A2C): 38.29 ml/m2 Left Atrium Systolic Dimension: 3.76 cm Mitral Valve MV E to A Ratio: 1.17 Mitral Valve A-Wave Peak Velocity: 0.96 m/s Mitral Valve E-Wave Peak Velocity: 1.12 m/s Right Ventricle RV Internal Diastolic Dimension: 3.11 cm Aorta AO Root Diam: 3.06 cm Ascending Ao Diam: 2.97 cm Aortic Valve AoV Area (Peak Valeriano): 3.10 cm2, 3.10 cm2 AoV Area (VTI): 2.52 cm2, 2.52 cm2 Peak Velocity(Antegrade Flow): 1.84 m/s Peak Gradient(Antegrade Flow): 13.53 mm[Hg] Mean Velocity(Antegrade Flow): 1.17 m/s Mean Gradient(Antegrade Flow): 6.45 mm[Hg] Velocity Time Integral: 41.95 cm Tricuspid Valve Peak Velocity (Regurgitant Flow): 2.07 m/s, 1.82 m/s, 2.35 m/s Pulmonic Valve Mean Gradient: 3.01 mm[Hg], 2.75 mm[Hg] Mean Velocity: 0.82 m/s, 0.79 m/s Peak Velocity: 1.07 m/s Peak Gradient: 5.06 mm[Hg], 4.20 mm[Hg] Right Atrium Right Atrium Systolic Pressure: 50.60 ml, 50.60 ml Dictated by: Al Johnson M.D. on 06/05/2023 at 13:31 Approved by: Al Johnson M.D. on 06/05/2023 at 13:34
== END 2023-06-04 13:12 | disposition home or self-care (01) ==
LOC: CARD 13:12
PROVIDERS: PCP Family Medicine; Visit Provider Nurse Practitioner
DX: G90.A Postural orthostatic tachycardia syndrome [POTS] (principal); I11.9 Hypertensive heart disease without heart failure; R06.09 Other forms of dyspnea
CPT/HCPCS: 93306

== ENCOUNTER 2023-08-19 11:39 | Outpatient (OUT) | payer BC, SELFPAY ==
[2023-08-19 12:12] LABS: Basophils Absolute Auto 0.1 10^3/uL (0.0-0.1); Basophils Percent Auto 1.3 % (0.2-2.0); Hematocrit 40.6 % (36.0-48.0); Hemoglobin 13.8 g/dL (12.0-16.0); Immature Granulocytes Abs Auto 0.04 10^3/uL (0.00-0.03); Immature Granulocytes Pct Auto 0.5 % (0.0-0.5); Lymphocytes Absolute Auto 1.6 10^3/uL (1.2-3.8); Lymphocytes Percent Auto 21.2 % (20.5-60.0); Mean Corpuscular Volume 91.2 fL (81.0-99.0); Monocytes Absolute Auto 0.5 10^3/uL (0.3-0.8); Monocytes Percent Auto 6.4 % (1.7-12.0); Neutrophils Absolute Auto 5.3 10^3/uL (1.4-6.5); Neutrophils Percent Auto 70.6 % (43.0-75.0); Platelet Count 259 10^3/uL (150-450); Red Blood Count 4.45 10^6/uL (4.20-5.40); Red Cell Distribution Width 12.1 % (11.0-15.0); White Blood Count 7.5 10^3/uL (4.0-11.0)
[2023-08-19 12:25] LABS: Bilirubin Urine NEGATIVE (NEGATIVE); Blood Urine TRACE-L (NEGATIVE); Clarity Urine CLEAR (CLEAR); Color Urine LT. YELLOW (YELLOW); Glucose Urine UA NEGATIVE (NEGATIVE); Ketones Urine NEGATIVE (NEGATIVE); Leukocyte Esterase Urine NEGATIVE (NEGATIVE); Nitrite Urine NEGATIVE (NEGATIVE); Protein Urine NEGATIVE (NEG/TRACE); Urobilinogen Urine 0.2 EU/dL (0.2-1.0)
[2023-08-19 13:05] LABS: Free T4 0.87 ng/dL (0.76-1.46)
[2023-08-19 13:08] LABS: Anion Gap 10.8; BUN Creatinine Ratio 22.5; Calcium 8.8 mg/dL (8.5-10.1); Carbon Dioxide 30.6 mmol/L (21.0-32.0); Chloride 96 mmol/L (98-107); Estimated GFR (African America >60 (>=60); Estimated GFR (Non-African Ame >60 (>=60); Glucose 116 mg/dL (74-106); Potassium 4.4 mmol/L (3.5-5.1); Sodium 133 mmol/L (136-145)
== END 2023-08-19 11:40 | disposition home or self-care (01) ==
LOC: LAB 11:40
PROVIDERS: PCP Family Medicine; Visit Provider Family Medicine
DX: R79.89 Other specified abnormal findings of blood chemistry (principal); R60.0 Localized edema; R35.0 Frequency of micturition
CPT/HCPCS: 36415; 80048; 81003; 83880; 84439; 84443; 85025

== ENCOUNTER 2023-09-07 01:26 | Emergency (ER) | payer OTHER, SELFPAY ==
[2023-09-07 01:31] VITALS: BP 178/86; PULSE 90; TEMP 36.6; O2SAT 100; BMI 45.3
--- OUTSIDE RECORDS SUMMARY | 2023-09-07 01:40 | XMS_ITS | CCD ---
Author Organization [facility] Care Team Providers Care Landscape Technician Name Role Phone Merissa Chaudhary Primary Care Provider Sidra Potter Attending Provider MERISSA CHAUDHARY Primary Care Physician [phone] Merissa Chaudhary Unavailable MISC, DR HALEY Admitting Unavailable MISC, DR HALEY Attending Unavailable MERISSA CHAUDHARY Primary Care Unavailable MISC, DR HLAEY Consulting Unavailable MISC, DR HALEY Admitting Unavailable MISC, DR HALEY Attending Unavailable MERISSA CHAUDHARY Primary Care Unavailable MISC, DR HALEY Consulting Unavailable MISC, DR HALEY Admitting Unavailable MISC, DR HALEY Attending Unavailable MERISSA CHAUDHARY Primary Care Unavailable MISC, DR HALEY Consulting Unavailable MERISSA CHAUDHARY Admitting Unavailable MERISSA CHAUDHARY Attending Unavailable MERISSA CHAUDHARY Primary Care Unavailable MERISSA CHAUDHARY Consulting Unavailable Virgilio Mckeon Unavailable MD Merissa Chaudhary Primary Care Provider MD Froilan Brown Admit Provider [phone] MD Petr Kowalski Attending Provider MD Merissa Chaudhary Primary Care Provider MD Froilan Brown Admit Provider MD Petr Kowalski Attending Provider Community, Outreach Attending Provider MD Merissa Chaudhary Primary Care Provider GOLDIE, YANY Jc Attending Unavailable POCYANY PAULINO Referring Unavailable POCJEFFERSON, YANY Jc Referring Unavailable POCJEFFERSON, YANY Jc Attending Unavailable MD Merissa Chaudhary Primary Care Provider NIRANJAN Wagoner Attending Provider Merissa Chaudhary Primary Care Unavailable Community, Outreach Admitting Unavailable Community, Outreach Attending Unavailable Pam Wagoner Admitting Unavailable Pam Wagoner Attending Unavailable Merissa Chaudhary Primary Care Unavailable Merissa Chaudhary Primary Care Unavailable Petr Kowalski Attending Unavailable Froilan Brown Admitting Unavailable DAYA JOHNSON Attending Unavailable JENNIFER ALARCON Attending Unavailable MILAGRO MANN Attending Unavailable PocosYany Attending Unavailable PocYany paulino Referring Unavailable MERISSA CHAUDHARY Consulting Unavailable Yany Cuellar Admitting Unavailable PocYany paulino Attending Unavailable PocYany paulino Referring Unavailable MD MERISSA CHAUDHARY Consulting Unavailable Allergies Allergy Classification Reported Allergen(s) Allergy Type Date of Onset Reaction(s) Facility Unclassified (1 source) Allergy to substance [facility] (13 sources) Codeine Drug Allergy Unknown [employer] [facility] [employer] Other (16 sources) Metoclopramide Drug Allergy 05-08-19 24 Unknown, [facility] (13 sources) Sulfamethoxazole / Trimethoprim Drug Allergy Unknown [employer] Other (13 sources) Sulfonamides (Antibiotic) Drug allergy rash [facility] [employer] Other (5 sources) Codeine; Translations: [CODEINE] Drug Allergy 04-06-19 14 [facility] Repository (1 source) Iothalamate Drug Allergy 04-06-19 14 [facility] Repository (1 source) Morphine Drug Allergy 04-12-19 14 [facility] Repository (1 source) Sulfonamides (Antibiotic) Drug allergy (disorder) 04-06-19 14 [facility] Repository (5 sources) Codeine Drug Allergy 02-25-20 14 Unknown [employer] Other (7 sources) Sulfonamides (Antibiotic); Translations: [Sulfa (Sulfonamide Antibiotics)] Allergy to substance 03-11-20 14 Hives, Hives, [facility] (4 sources) Sulfamethoxazole; Translations: [sulfamethoxazole] Drug Allergy 05-08-19 [facility] (4 sources) Trimethoprim; Translations: [trimethoprim] Drug Allergy 05-08-19 [facility] (1 source) Codeine Drug Allergy 05-08-19 [facility] Repository (1 source) Metoclopramide Drug Allergy 05-08-19 [facility] Repository (1 source) Metoclopramide; Translations: [METOCLOPRAMIDE HCL] Drug Allergy 03-11-20 [facility] Repository Medications Current Medications Medication Drug Class(es) Dates Sig (Normalized) Sig (Original) acetaminophen 500 mg oral tablet (5 sources) Start: 3 take 500 mg by mouth twice daily Acetaminophen Active 500 MG PO Twice daily December 24, 2022 12:00am 24 hr amphetamine aspartate 2.5 mg / amphetamine sulfate 2.5 mg / dextroamphetamine saccharate 2.5 mg / dextroamphetamine sulfate 2.5 mg extended release oral capsule (2 sources) Central Nervous System Stimulant Start: 3 take 1 capsule by mouth every twenty-four hours Adderall XR 10 MG 1 capsule in the morning Orally Once a day for 30 days Dec, Active cariprazine 3 mg oral capsule (1 source) Atypical Antipsychotic Start: 4 take 1 capsule by mouth once daily Cariprazine (Vraylar) 3 mg capsule Active 3 MG PO Daily August 19, 2023 12:00am cholecalciferol 1.25 mg oral capsule (1 source) Vitamin D Start: 4 take 1250 ug by mouth every week Cholecalciferol (Vitamin D3) Active 1250 MCG PO every week 13 90 July 18, 2023 12:00am hydroxychloroquine sulfate 200 mg oral tablet (19 sources) Antimalarial, Antirheumatic Agent Start: 9 take 200 mg by mouth twice daily Hydroxychloroquine Active 200 MG PO Twice daily May 20, 2018 1:00am lamoTRIgine 200 mg oral tablet (17 sources) Mood Stabilizer, Anti-epileptic Agent Start: 4 take 200 mg by mouth once daily Lamotrigine Active 200 MG PO Daily July 10, 2023 12:00am Start: 05-20-2018 take 150 mg by mouth once yolanda y Lamotrigine Active 150 MG PO Daily May 20, 2018 3:39pm Start: 05-20-2018 End: 07-10-2023 take 200 mg by mouth once daily Lamotrigine Discontinu ed 200 MG PO Daily May 20, 2018 1:00am July 10, 2023 1:44pm take 1 tablet by veronica every twenty-four hours lamoTRIgine 200 MG 1 [...] 50 MG PO Daily May 20, 2018 1:00am take 1 tablet by veronica every twenty-four [...] mg by mouth four times daily Pyridostigmine Zeigler Active 120 MG PO Four times daily December 24, 2022 12:00am Start: 12-24-2022 End: 12-24-2022 take 120 mg by mouth once daily Pyridostigmine Zeigler Discontinued 120 MG PO Daily December 24, 2022 12:00am December 24, 2022 8:13am Start: 12-24-2022 End: 05-08-2023 take 120 mg by mouth twice daily Pyridostigmine Zeigler Discontinued 120 MG PO Twice daily 0 December 24, 2022 12:00am May 08, 2023 4:09pm take 2 tablets by mo [facility] every six hours pyRIDostigmine Zeigler 60 MG 2 tablets Orally 4 times a day Active take 1 tablet by veronica th every four hours Pyridostigmine Zeigler 60 MG 1 tablet Orally every 4 hrs Active QUEtiapine 25 mg oral tablet (1 source) Atypical Antipsychotic Start: 08-19-2023 take 1 tablet by mouth once daily at bedtime Quetiapine (Seroquel) 25 mg tablet Active 25 MG PO Daily at bedtime August 19, 2023 12:00am rivaroxaban 20 mg oral tablet (19 sources) Factor Xa Inhibitor Start: 12-24-2022 End: 07-25-2023 take 1 tablet by mouth once daily Rivaroxaban (Xarelto) 20 mg tablet Active 20 MG PO Daily July 25, 2023 9:06am rOPINIRole 0.5 mg oral tablet (5 sources) Nonergot Dopamine Agonist take 1 tablet by mouth once daily at bedtime rOPINIRole HCl 0.5 MG 1 tablet 1 to 3 hours before bedtime Orally Once a day Active SITagliptin 100 mg oral tablet (18 sources) Dipeptidyl Peptidase 4 Inhibitor Start: 12-24-2022 take 1 tablet by mouth once daily Sitagliptin Phosphate (Januvia) 100 mg tablet Active 100 MG PO Daily December 24, 2022 12:00am sodium chloride 1000 mg oral tablet (2 sources) take 1 tablet by mouth every twenty-four hours Sodium Chloride 1 GM 1 tablet Orally daily for 90 days Active tiZANidine 4 mg oral tablet (5 sources) Central alpha-2 Adrenergic Agonist take 1 tablet by mouth once daily at bedtime as needed tiZANidine HCl 4 MG TAKE 1 TABLET BY MOUTH EVERY DAY AT BEDTIME NEEDED for 90 days Active traMADol hydrochloride 50 mg oral tablet (13 sources) Opioid Agonist Start: 08-19-2023 take 50 mg by mouth twice daily Tramadol Active 50 MG PO Twice daily August 19, 2023 12:00am Start: 12-24-2022 End: 05-08-2023 take 50 mg by mouth every eight hours Tramadol Discontinued 50 MG PO Q8H December 24, 2022 12:00am May 08, 2023 4:10pm Start: 09-13-2022 take 1 tablet by veronica th three times daily as needed traMADol HCl 50 MG 1 tablet as needed Orally tid prn for 30 days Aug, Active 24 hr venlafaxine 150 mg extended release oral capsule (20 sources) Serotonin and Norepinephrine Reuptake Inhibitor Start: 05-20-2018 take 300 mg by mouth once daily Venlafaxine Active 300 MG PO Daily May 20, 2018 1:00am take 2 capsules by mouth once da tori Venlafaxine HCl ER 150 MG TAKE 2 CAPSULES BY MOUTH DAILY for 90 Active Effexor XR Not-T aking Completed/Discontinued Medications Medication Drug Class(es) Dates Sig (Normalized) Sig (Original) acetaminophen 325 mg / HYDROcodone bitartrate 5 mg oral tablet (11 sources) Opioid Agonist Start: 05-08-2023 End: 08-19-2023 take 1 tablet by mouth every six hours Hydrocodone-Acetami nophen Discontinued 1 TAB PO Every 6 hours 28 7 May 08, 2023 August 19, 2023 10:46am Start: 02-12-2023 take 1 tablet by veronica th every [...] 6 hrs for 30 days Apr, Active [id number] 200 actuat albuterol 0.09 mg/actuat metered dose [...] Orally Three times a day Jun, Not-Taking busPIRone hydrochloride 10 mg oral tablet (4 sources) Start: 05-08-2023 End: 08-19-2023 take 10 mg by mouth twice daily Buspirone Discontinued 10 MG PO Twice daily 60 June 03, 2023 10:41am August 19, 2023 10:45am ketorolac tromethamine 5 mg/ml ophthalmic solution (5 sources) Nonsteroidal Anti-inflammatory Drug, Cyclooxygenase Inhibitor Start: 12-24-2022 End: 05-08-2023 take 1 drop(s) into the eye(s) four times daily Ketorolac Discontinued 1 DROPS EYE-RIGHT Four times daily December 24, 2022 12:00am May 08, 2023 4:08pm lisinopril 5 mg oral tablet (11 sources) Angiotensin Converting Enzyme Inhibitor Start: 05-20-2018 End: 12-24-2022 take 5 mg by mouth once daily Lisinopril Discontinued 5 MG PO Daily May 20, 2018 1:00am December 24, 2022 3:02am Lisinopril Not-T aking Omeprazole (5 sources) Proton Pump Inhibitor Omeprazole Not-Taking temazepam 15 mg oral capsule (11 sources) Benzodiazepine Start: End: take 1 capsule by mouth once daily at bedtime Temazepam (Restoril) 15 mg capsule Discontinued 15 MG PO Daily at bedtime May 08, 2023 1:00am May 08, 2023 4:37pm Start: 09-12-2022 take 1 capsule by [facility] every twenty-four hours Temazepam 15 MG 1 capsule at bedtime as needed Orally Once a day for 30 days Aug, Active traZODone hydrochloride 50 mg oral tablet (4 sources) Serotonin Reuptake Inhibitor Start: 05-08-2023 End: 08-19-2023 take 50 mg by mouth once daily at bedtime Trazodone Discontinued 50 MG PO Daily at bedtime June 02, 2023 1:13pm August 19, 2023 10:46am warfarin sodium 10 mg oral tablet (11 sources) Vitamin K Antagonist Start: 05-20-2018 End: 12-24-2022 take 5 mg by mouth once daily Warfarin Discontinued 5 MG PO Daily May 20, 2018 1:00am December 24, 2022 3:03am Warfarin Sodium Not-Taking Problems Active Problems Problem Classification Problem Date Documented Da te Episodic/Chronic Administrative/social admission (1 source) Counseling procedure with explicit context; Translations: [Dietary counseling and surveillance] Episodic Anxiety disorders (7 sources) Anxiety; Translations: [Other specified anxiety disorders] Onset: 4 Chronic Cardiac dysrhythmias (2 sources) Supraventricular tachycardia; Translations: [Supraventricular tachycardia] Onset: 2 Chronic Diabetes mellitus with complications (16 sources) Hyperglycemia due to type 2 diabetes mellitus; Translations: [Type 2 diabetes mellitus with hyperglycemia] Onset: 2 Chronic Diabetes mellitus without complication (1 source) Diabetes mellitus without complication; Translations: [Diabetes mellitus due to underlying condition without complications] Chronic Disorders usually diagnosed in infancy, childhood, or adolescence (3 sources) Adult attention deficit hyperactivity disorder ; Translations: [Other specified behavioral and emotional disorders with onset usually occurring in childhood and adolescence] Chronic E Codes: Fall (7 sources) Fall; Translations: [Unspecified fall, initial encounter] 12-24-2022 Episodic Essential hypertension (2 sources) Essential (primary) hypertension; Translations: [Essential (primary) hypertension] Onset: 2 Chronic Fluid and electrolyte disorders (9 sources) Hyponatremia; Translations: [Hypo-osmolality and hyponatremia] Onset: 3 12-24-2022 Episodic Genitourinary symptoms and ill-defined conditions (2 sources) Increased frequency of urination; Translations: [Frequency of micturition] 08-19-2023 Episodic Immunizations and screening for infectious disease (1 source) Raised antibody titer; Translations: [RAISED ANTIBODY TITER] Onset: 3 Episodic Malaise and fatigue (2 sources) Fatigue; Translations: [Other fatigue] Episodic Miscellaneous mental health disorders (9 sources) Primary insomnia; Translations: [Primary insomnia] Chronic Mood disorders (20 sources) Depressive disorder; Translations: [Depressive disorder] Onset: 4 05-08-2023 Chronic Osteoarthritis (5 sources) Osteoarthritis; Translations: [Unspecified osteoarthritis, unspecified site] Onset: 4 05-08-2023 Chronic Other acquired deformities (13 sources) Contracture of joint of hand; Translations: [Contracture, unspecified hand] Chronic Other aftercare (1 source) Other assisted (current) drug therapy; Translations: [OTH USP CURRENT DRUG THERAPY] Onset: 3 Episodic Other circulatory disease (1 [...] autonomic nervous system] Onset: 3 Chronic Other lower respiratory disease (2 sources) Pleuritic [...] right hip] Episodic Other non-traumatic joint disorders (5 sources) Hip pain; Translations: [Pain in right [...] conditions (not mental disorders or infectious disease) (10 sources) Raised cardiac enzyme or marker; Translations: [...] [Parkinson's disease] Chronic Phlebitis; thrombophlebitis and thromboembolism (8 sources) H/O: Deep vein thrombosis; Translations: [Personal [...] history of malignant neoplasm of breast] Episodic Residual codes; unclassified (1 source) Edema of lower extremity; Translations: [Localized edema] 08-19-2023 Episodic Residual codes; unclassified (1 source) Localized edema; Translations: [Edema] 08-19-2023 Episodic Rheumatoid arthritis and related disease (18 sources) Rheumatoid arthritis; Translations: [Rheumatoid arthritis, unspecified] [...] Translations: [Hyperglycemia, unspecified] Onset: 04-11-2016 Episodic Other circulatory disease (2 sources) Postural orthostatic tachycardia syndrome ; Translations: [Postural orthostatic tachycardia syndrome (POTS)] Onset: 09-11-2022 Episodic Other hematologic conditions (1 source) Other specified abnormalities of plasma proteins; Translations: [Other specified abnormalities of plasma proteins] Onset: 12-24-2022 Episodic Other lower respiratory disease (2 sources) Other forms of dyspnea; Translations: [Other forms of dyspnea] Onset: 01-22-2022 Episodic Other non-traumatic joint disorders (6 sources) Pain in right hip; Translations: [Pain [...] Test Name Value Interpretation Reference Range Facility Alanine aminotransferase [En zymatic activity/volume] in Serum or PlasmaOrdered By: Pam Wagoner on 07-08-2023 ALT [Catalytic activity/Vol] 13 U/L 7-52 [facility] Albumin [Mass/volume] in Ser um or Plasma by Bromocresol green (BCG) dye binding methoOrdered By: Pam Wagoner on 07-08-2023 Albumin BCG dye [Mass/Vol] 4.7 g/dL 3.5-5.7 [facility] Alkaline phosphatase [Enzyma tic activity/volume] in Serum or PlasmaOrdered By: Pam Wagoner on 07-08-2023 ALP [Catalytic activity/Vol] 72 U/L 34-104 [facility] Aspartate aminotransferase [ Enzymatic activity/volume] in Serum or PlasmaOrdered By: Pam Wagoner on 07-08-2023 AST [Catalytic activity/Vol] 18 U/L 13-39 [facility] Basophils Auto (Bld) [#/Vol] Ordered By: Pam Wagoner on 07-08-2023 Basophils (Bld) [#/Vol] 0.1 10*3/uL 0.0-0.2 [facility] Basophils/100 WBC Auto (Bld) Ordered By: Pam Wagoner on 07-08-2023 Basophils/100 WBC (Bld) 1.2 % . [facility] Bilirubin.total [Mass/volume ] in Serum or PlasmaOrdered By: Pam Wagoner on 07-08-2023 Bilirubin [Mass/Vol] 0.3 mg/dL 0.3-1.0 [facility] Calcium [Mass/volume] in Ser um or PlasmaOrdered By: Pam Wagoner on 07-08-2023 Calcium [Mass/Vol] 9.9 mg/dL 8.6-10.3 [facility] Carbon dioxide, total [Moles /volume] in Serum or PlasmaOrdered By: Pam Wagoner on 07-08-2023 CO2 [Moles/Vol] 31.5 mmol/L 21.0-31.0 [facility] Chloride [Moles/volume] in S davi or PlasmaOrdered By: Pam Wagoner on 07-08-2023 Chloride [Moles/Vol] 100 mmol/L 98-107 [facility] Complete Blood Count Auto Di ffon 07-08-2023 Basophils (Bld) [#/Vol] 0.1 10*3/uL Normal 0.0-0.2 [facility] Comment on above: Result Comment: PERF ORMED BY: [place] [address] PATHOLOGIST HUMAN RESOURCE ADVISER HARVINDER GAGE M.D. Performed By: #### C BC, CMP #### [address] #### THYROID PROF II, VITD+D2+D3 #### [facility] , Basophils/100 WBC (Bld) 1.2 % Normal . [facility] Comment on above: Performed By: #### C BC, CMP #### [facility] [address] [place] [address] #### THYROID PROF II, VITD+D2+D3 #### [facility] , Eosinophils (Bld) [#/Vol] 0.0 10*3/uL Normal 0.0-0.45 [facility] Comment on above: Performed By: #### C BC, CMP #### [place] [address] [place] #### THYROID PROF II, VITD+D2+D3 #### [facility] , Eosinophils/100 WBC (Bld) 0.0 % Normal . [facility] Comment on above: Performed By: #### C BC, CMP #### [place] [address] [place] #### THYROID PROF II, VITD+D2+D3 #### [facility] , Erythrocyte distribution width (RBC) [Ratio] 12.9 % Normal 11.9-15.3 [facility] Comment on above: Performed By: #### C BC, CMP #### [address] #### THYROID PROF II, VITD+D2+D3 #### [facility] , Hematocrit (Bld) [Volume fraction] 43.4 % Normal 34.0-46.4 [facility] Comment on above: Performed By: #### C BC, CMP #### [place] [address] [place] #### THYROID PROF II, VITD+D2+D3 #### [facility] , Hemoglobin (Bld) [Mass/Vol] 14.7 g/dL Normal 11.8-15.4 [facility] Comment on above: Performed By: #### C BC, CMP #### [place] [address] [place] #### THYROID PROF II, VITD+D2+D3 #### [facility] , Lymphocytes (Bld) [#/Vol] 1.7 10*3/uL Normal 1.00-4.8 [facility] Comment on above: Performed By: #### C BC, CMP #### [place] [address] [place] #### THYROID PROF II, VITD+D2+D3 #### [facility] , Lymphocytes/100 WBC (Bld) 25.8 % Normal . [facility] Comment on above: Performed By: #### C BC, CMP #### [place] [address] [place] #### THYROID PROF II, VITD+D2+D3 #### [facility] , MCH (RBC) [Entitic mass] 31.2 pg Normal 24.7-34.3 [facility] Comment on above: Performed By: #### C BC, CMP #### [place] [address] [place] #### THYROID PROF II, VITD+D2+D3 #### [facility] , MCV (RBC) [Entitic vol] 92.0 fL Normal 80-100 [facility] Comment on above: Performed By: #### C BC, CMP #### [place] [address] [place] #### THYROID PROF II, VITD+D2+D3 #### [facility] , Mean Corpuscular HGB Conc 34.0 g/dL Normal 32.0-35.0 [facility] Comment on above: Performed By: #### C BC, CMP #### [address] #### THYROID PROF II, VITD+D2+D3 #### [facility] , Monocytes (Bld) [#/Vol] 0.5 10*3/uL Normal 0.0-0.8 [facility] Comment on above: Performed By: #### C BC, CMP #### [facility] [address] [place] [address] [place] #### THYROID PROF II, VITD+D2+D3 #### [facility] , Monocytes/100 WBC (Bld) 7.8 % Normal . [facility] Comment on above: Performed By: #### C BC, CMP #### [place] [id number] [place] #### THYROID PROF II, VITD+D2+D3 #### [facility] , Neutrophils (Bld) [#/Vol] 4.3 10*3/uL Normal 1.8-7.7 [facility] Comment on above: Performed By: #### C BC, CMP #### [place] [address] [place] #### THYROID PROF II, VITD+D2+D3 #### [facility] , Neutrophils/100 WBC (Bld) 65.2 % Normal . [facility] Comment on above: Performed By: #### C BC, CMP #### [address] #### THYROID PROF II, VITD+D2+D3 #### [facility] , NRBC% 0.1 /100{WBC} Normal 0-0.5 [facility] Comment on above: Performed By: #### C BC, CMP #### [address] #### THYROID PROF II, VITD+D2+D3 #### [facility] , Platelet mean volume (Bld) [Entitic vol] 7.8 fL Normal 6.3-10.7 [facility] Comment on above: Performed By: #### C BC, CMP #### [facility] [address] [place] [address] [place] #### THYROID PROF II, VITD+D2+D3 #### [facility] , Platelets (Bld) [#/Vol] 278 10*3/uL Normal 150-450 [facility] Comment on above: Performed By: #### C BC, CMP #### [place] [address] [place] #### THYROID PROF II, VITD+D2+D3 #### [facility] , RBC (Bld) [#/Vol] 4.72 10*6/uL Normal 3.60-5.00 [facility] Comment on above: Performed By: #### C BC, CMP #### [facility] [address] [place] [address] [place] #### THYROID PROF II, VITD+D2+D3 #### [facility] , WBC (Bld) [#/Vol] 6.7 10*3/uL Normal 3.8-11.6 [facility] Comment on above: Performed By: #### C BC, CMP #### [address] #### THYROID PROF II, VITD+D2+D3 #### [facility] , Comprehensive Metabolic Pane milla 07-08-2023 Albumin [Mass/Vol] 4.7 g/dL Normal 3.5-5.7 [facility] Comment on above: Performed By: #### C BC, CMP #### [place] [address] [place] #### THYROID PROF II, VITD+D2+D3 #### [facility] , Albumin/Globulin [Mass ratio] 1.7 {ratio} Normal [facility] Comment on above: Performed By: #### C BC, CMP #### [address] #### THYROID PROF II, VITD+D2+D3 #### [facility] , ALP [Catalytic activity/Vol] 72 U/L Normal 34-104 [facility] Comment on above: Result Comment: PERF ORMED BY: [place] [address] PATHOLOGIST HUMAN RESOURCE ADVISER HARVINDER GAGE M.D. Performed By: #### C BC, CMP #### [place] [address] [place] #### THYROID PROF II, VITD+D2+D3 #### [facility] , ALT [Catalytic activity/Vol] 13 U/L Normal 7-52 [facility] Comment on above: Performed By: #### C BC, CMP #### [facility] [address] [place] [address] [place] #### THYROID PROF II, VITD+D2+D3 #### [facility] , Anion gap [Moles/Vol] 9.2 mmol/L Normal 6.0-15.0 [facility] Comment on above: Performed By: #### C BC, CMP #### [facility] [address] [place] [address] [place] #### THYROID PROF II, VITD+D2+D3 #### [facility] , AST [Catalytic activity/Vol] 18 U/L Normal 13-39 [facility] Comment on above: Performed By: #### C BC, CMP #### [address] #### THYROID PROF II, VITD+D2+D3 #### [facility] , Bilirubin [Mass/Vol] 0.3 mg/dL Normal 0.3-1.0 [facility] Comment on above: Performed By: #### C BC, CMP #### [facility] [address] [place] [address] #### THYROID PROF II, VITD+D2+D3 #### [facility] , Calcium [Mass/Vol] 9.9 mg/dL Normal 8.6-10.3 [facility] Comment on above: Performed By: #### C BC, CMP #### [address] #### THYROID PROF II, VITD+D2+D3 #### [facility] , Chloride [Moles/Vol] 100 mmol/L Normal 98-107 [facility] Comment on above: Performed By: #### C BC, CMP #### [facility] [address] [place] [address] #### THYROID PROF II, VITD+D2+D3 #### [facility] , CO2 [Moles/Vol] 31.5 mmol/L High 21.0-31.0 [facility] Comment on above: Performed By: #### C BC, CMP #### [place] [address] [place] #### THYROID PROF II, VITD+D2+D3 #### [facility] , Creatinine [Mass/Vol] 0.96 mg/dL Normal 0.60-1.20 [facility] Comment on above: Performed By: #### C BC, CMP #### [place] [address] [place] #### THYROID PROF II, VITD+D2+D3 #### [facility] , GFR/1.73 sq M.predicted MDRD (S/P/Bld) [Vol rate/Area] mL/min/{1.73_m2} Normal [facility] Comment on above: Performed By: #### C BC, CMP #### [place] [address] [place] #### THYROID PROF II, VITD+D2+D3 #### [facility] , Globulin (S) [Mass/Vol] 2.8 g/dL Normal [facility] Comment on above: Performed By: #### C BC, CMP #### [place] [address] [place] #### THYROID PROF II, VITD+D2+D3 #### [facility] , Glucose [Mass/Vol] 109 mg/dL High 70-100 [facility] Comment on above: Result Comment: [place] om Glucose Reference Range is dependent on time and content of last meal. Glucose of more than 200 mg/dL in a nonstressed, ambulatory subject supports the diagnosis of Diabetes Mellitus. ADA recommended reference range Performed By: #### C BC, CMP #### [place] [address] [place] #### THYROID PROF II, VITD+D2+D3 #### [facility] , Potassium [Moles/Vol] 4.7 mmol/L Normal 3.5-5.1 [facility] Comment on above: Performed By: #### C BC, CMP #### [facility] [address] [place] [address] [place] #### THYROID PROF II, VITD+D2+D3 #### [facility] , Protein [Mass/Vol] 7.5 g/dL Normal 6.4-8.9 [facility] Comment on above: Performed By: #### C BC, CMP #### [facility] [address] [place] [address] [place] #### THYROID PROF II, VITD+D2+D3 #### [facility] , Sodium [Moles/Vol] 136 mmol/L Normal 136-145 [facility] Comment on above: Performed By: #### C BC, CMP #### [facility] [address] [place] [address] [place] #### THYROID PROF II, VITD+D2+D3 #### [facility] , Urea nitrogen [Mass/Vol] 26 mg/dL High 7-25 [facility] Comment on above: Performed By: #### C BC, CMP #### [facility] [address] [place] [address] [place] #### THYROID PROF II, VITD+D2+D3 #### [facility] , Creatinine [Mass/volume] in Serum or PlasmaOrdered By: Pam Wagoner on 07-08-2023 Creatinine [Mass/Vol] 0.96 mg/dL 0.60-1.20 [facility] Eosinophils Auto (Bld) [#/Vo l]Ordered By: Pam Wagnoer on 07-08-2023 Eosinophils (Bld) [#/Vol] 0.0 10*3/uL 0.0-0.45 [facility] Eosinophils/100 WBC Auto (Bl d)Ordered By: Pam Wagoner on 07-08-2023 Eosinophils/100 WBC (Bld) 0.0 % . [facility] Erythrocyte distribution wid th Auto (RBC) [Ratio]Ordered By: Pam Wagoner on 07-08-2023 Erythrocyte distribution width (RBC) [Ratio] 12.9 % 11.9-15.3 [facility] Free thyroxine indexOrdered By: Pam Wagoner on 07-08-2023 Free T4 index Calc [Mass/Vol] 1.8 1.2-4.9 [facility] Globulin Calc (S) [Mass/Vol] Ordered By: Pam Wagoner on 07-08-2023 Globulin (S) [Mass/Vol] 2.8 g/dL [facility] Glucose [Mass/volume] in Ser um or PlasmaOrdered By: Pam Wagoner on 07-08-2023 Glucose [Mass/Vol] 109 mg/dL 70-100 [facility] Comment on above: ADA recommended refe rence rangeRandom Glucose Reference Range is dependent on time and content of last meal. Glucose of more than 200 mg/dL in a nonstressed, ambulatory subject supports the diagnosis of Diabetes Mellitus. Hematocrit Auto (Bld) [Volum e fraction]Ordered By: Pam Wagoner on 07-08-2023 Hematocrit (Bld) [Volume fraction] 43.4 % 34.0-46.4 [facility] Hemoglobin [Mass/volume] in BloodOrdered By: Pam Wagoner on 07-08-2023 Hemoglobin (Bld) [Mass/Vol] 14.7 g/dL 11.8-15.4 [facility] Leukocytes [#/volume] correc [place] for nucleated erythrocytes in Blood by Automated counOrdered By: Pam Wagoner on 07-08-2023 WBC corrected for nucl RBC Auto (Bld) [#/Vol] 6.7 10*3/uL 3.8-11.6 [facility] Lymphocytes Auto (Bld) [#/Vo l]Ordered By: Pam Wagoner on 07-08-2023 Lymphocytes (Bld) [#/Vol] 1.7 10*3/uL 1.00-4.8 [facility] Lymphocytes/100 WBC Auto (Bl d)Ordered By: Pam Wagoner on 07-08-2023 Lymphocytes/100 WBC (Bld) 25.8 % . [facility] MCH Auto (RBC) [Entitic mass ]Ordered By: Pam Wagoner on 07-08-2023 MCH (RBC) [Entitic mass] 31.2 pg 24.7-34.3 [facility] MCHC Auto (RBC) [Mass/Vol]Or dered By: Pam Wagoner on 07-08-2023 MCHC (RBC) [Mass/Vol] 34.0 g/dL 32.0-35.0 [facility] MCV Auto (RBC) [Entitic vol] Ordered By: Pam Wagoner on 07-08-2023 MCV (RBC) [Entitic vol] 92.0 fL 80-100 [facility] Monocytes Auto (Bld) [#/Vol] Ordered By: Pam Wgaoner on 07-08-2023 Monocytes (Bld) [#/Vol] 0.5 10*3/uL 0.0-0.8 [facility] Monocytes/100 WBC Auto (Bld) Ordered By: Pam Wagoner on 07-08-2023 Monocytes/100 WBC (Bld) 7.8 % . [facility] Neutrophils Auto (Bld) [#/Vo l]Ordered By: Pam Wagoner on 07-08-2023 Neutrophils (Bld) [#/Vol] 4.3 10*3/uL 1.8-7.7 [facility] Neutrophils/100 WBC Auto (Bl d)Ordered By: Pam Wagoner on 07-08-2023 Neutrophils/100 WBC (Bld) 65.2 % . [facility] No Panel InformationOrdered By: Pam Wagoner on 07-08-2023 Estimated GFR (CKD-EPI) > 60.0 mL/Min [facility] Free Thyroxine (T4) Direct 7.5 ug/dL 4.5-12.0 [facility] Creatinine Clearance (Chem N/A [facility] Nucleated erythrocytes [Pres ence] in Blood by Automated countOrdered By: Pam Wagoner on 07-08-2023 Nucleated RBC Auto Ql (Bld) 0.1 /100{WBC} 0-0.5 [facility] Platelet mean volume Auto (B ld) [Entitic vol]Ordered By: Pam Wagoner on 07-08-2023 Platelet mean volume (Bld) [Entitic vol] 7.8 fL 6.3-10.7 [facility] Platelets Auto (Bld) [#/Vol] Ordered By: Pam Wagoner on 07-08-2023 Platelets (Bld) [#/Vol] 278 10*3/uL 150-450 [facility] Potassium [Moles/volume] in Serum or PlasmaOrdered By: Pam Wagoner on 07-08-2023 Potassium [Moles/Vol] 4.7 mmol/L 3.5-5.1 [facility] Protein [Mass/volume] in Ser um or PlasmaOrdered By: Pam Wagoner on 07-08-2023 Protein [Mass/Vol] 7.5 g/dL 6.4-8.9 [facility] RBC Auto (Bld) [#/Vol]Ordere d By: Pam Wagoner on 07-08-2023 RBC (Bld) [#/Vol] 4.72 10*6/uL 3.60-5.00 [facility] Serum or plasma 25-hydroxyca lciferol measurement (mass/volume)Ordered By: Pam Wagoner on 07-08-2023 25-hydroxyvitamin D2 [Mass/Vol] <1.0 ng/mL . [facility] Comment on above: This test was develo ped and its performance characteristicsdetermined by [facility]. It has not been cleared or approvedby the Food and Drug Administration. Serum or plasma 25-hydroxyvi tamin D measurement (mass/volume)Ordered By: Pam Wagoner on 07-08-2023 25-hydroxyvitamin D [Mass/Vol] 6.8 ng/mL . [facility] Comment on above: Reference Range:All Ages: Target levels 30 - 100 Serum or plasma albumin/glob ulin mass ratioOrdered By: Pam Wagoner on 07-08-2023 Albumin/Globulin [Mass ratio] 1.7 {ratio} [facility] Serum or plasma anion gap de terminationOrdered By: Pam Wagoner on 07-08-2023 Anion gap [Moles/Vol] 9.2 mmol/L 6.0-15.0 [facility] Serum or plasma calcidiol me asurement (mass/volume)Ordered By: Pam Wagoner on 07-08-2023 25-hydroxyvitamin D3 [Mass/Vol] 6.8 ng/mL . [facility] Comment on above: This test was develo ped and its performance characteristicsdetermined by [facility]. It has not been cleared or approvedby the Food and Drug Administration.Performed at: [facility] [id number] [place], [place] [id number] Director: Santos Chahal MD, Phone: [phone] Sodium [Moles/volume] in Ser um or PlasmaOrdered By: Pam Wagoner on 07-08-2023 Sodium [Moles/Vol] 136 mmol/L 136-145 [facility] T3 uptakeOrdered By: Pam Wagoner on 07-08-2023 T3RU 24 % 24-39 [facility] TSH DL <= 0.005 mIU/L QnOrde red By: Pam Wagoner on 07-08-2023 TSH Qn 5.980 m[IU]/L 0.450-4.50 0 [facility] Thyroid Profile IIon 024 Free Thyroxine Index 1.8 Normal 1.2-4.9 [facility] Comment on above: Performed By: #### C BC, CMP #### [address] #### THYROID PROF II, VITD+D2+D3 #### [facility] , [facility] Triiodothyronine,(T3) 124 ng/dL Normal 71-180 [facility] Comment on above: Result Comment: Perf ormed at: - [facility] [address] [id number] Hand Profiler: Spencer Martinez PhD, Phone: [phone] Performed By: #### C BC, CMP #### [place] [address] [place] #### THYROID PROF II, VITD+D2+D3 #### [facility] , T4 [Mass/Vol] 7.5 ug/dL Normal 4.5-12.0 [facility] Comment on above: Performed By: #### C BC, CMP #### [facility] [address] [place] [address] [place] #### THYROID PROF II, VITD+D2+D3 #### [facility] , Triiodothryronine (T3) Uptake 24 % Normal 24-39 [facility] Comment on above: Performed By: #### C BC, CMP #### [address] #### THYROID PROF II, VITD+D2+D3 #### [facility] , TSH Qn 5.980 m[IU]/L High 0.450-4.50 0 [facility] Comment on above: Result Comment: PERF ORMED BY: [place] [address] PATHOLOGIST HUMAN RESOURCE ADVISER HARVINDER GAGE M.D. Performed By: #### C BC, CMP #### [address] #### THYROID PROF II, VITD+D2+D3 #### [facility] , Triiodothyronine (T3) [Mass/ volume] in Serum or PlasmaOrdered By: Pam Wagoner on 07-08-2023 T3 [Mass/Vol] 124 ng/dL 71-180 [facility] Comment on above: Performed at: [address] [id number] Director: Spencer Martinez PhD, Phone: [phone] Urea nitrogen [Mass/volume] in Serum or PlasmaOrdered By: Pam Wagoner on 07-08-2023 Urea nitrogen [Mass/Vol] 26 mg/dL 7-25 [facility] Vitamin D 25 Hydroxy,Tot+D2+ D3on 07-08-2023 [facility] Vitamin D 25 OH 6.8 ng/mL Low . [facility] Comment on above: Result Comment: Refe rence Range: All Ages: Target levels 30 - 100 Performed By: #### C BC, CMP #### [address] #### THYROID PROF II, VITD+D2+D3 #### [facility] , Vitamin D-2 <1.0 Normal . [facility] Comment on above: Result Comment: This test was developed and its performance characteristics determined by [facility]. It has not been cleared or approved by the Food and Drug Administration. Performed By: #### C BC, CMP #### [address] #### THYROID PROF II, VITD+D2+D3 #### [facility] , Vitamin D-3 6.8 ng/mL Normal . [facility] Comment on above: Result Comment: This test was developed and its performance characteristics determined by [facility]. It has not been cleared or approved by the Food and Drug Administration. Performed at: [facility] [address] [place] [id number] Hand Profiler: Santos Chahal MD, Phone: [phone] PERFORMED BY: [place] [address] PATHOLOGIST HUMAN RESOURCE ADVISER HARVINDER GAGE M.D. Performed By: #### C BC, CMP #### [address] #### THYROID PROF II, VITD+D2+D3 #### [facility] , WBC Auto (Bld) [#/Vol]Ordere d By: Pam Wagoner on 07-08-2023 WBC (Bld) [#/Vol] 6.7 10*3/uL 3.8-11.6 [facility] Office Visiton 06-13-2023 Follow-up visit [id number] Nicolas Harris 1960 F Date Provider Department Center 06/13/2023 [id number] Family History Problem Relation Age of Onset Breast cancer Mother 65 Lupus Sister Alcohol abuse Brother Other Niece Migraines Daughter Other Nephew Autoimmune disease Nephew Sudden Neg Hx Aneurysm Neg Hx Family Status - Relation Status Age at Mother Father Sister Brother Niece Alive Daughter Alive Daughter Alive Nephew Alive Neg Hx Level of Service:31765 DC OFFICE/OUTPATIENT ESTABLISHED LOW MDM 20 MIN Normal [facility] Progress Note - Nutritionon 06-04-2023 Progress Note - Nutrition Pt is here today for an initial DM MNT appt. Pt has had diabetes for two years. 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 Pt lives alone and feels lonely sometimes (depressed?). Pt does not like to cook. Pt usually checks blood sugar only once per week. Pt would like to lose wt but finds it difficult. Outside of walking at her job she does not exercise. Reviewed carb control and portions along with the plate method. Nutrition Assessment Food and Nutrition-Related History Food and Nutrient Intake: 24 hour recall: did not obtain this visit Breakfast: did not obtain this visit. Pt does state she eats chicken salad often and other easy to make foods as she lives alone. Lunch: Dinner: Snack: HS snack: Beverages: mostly water Beverages: water Dining Out: 1 time per week Food Allergy: NKFA Dislikes: not much Likes: most foods Pertinent Medication: Januvia Behavior: ready to learn, but may be somewhat down/sad/depressed possibly Activity: Anthropometric: Ht: 5?2? Wt: Did not obtain Recent weight changes: not sure UBW: not sure IBW: 120 lbs % IBW: BMI: unable to calculate >40 Obesity grade III 35-39.9 Obesity grade II 30-34.9 Obesity grade I 25-29.9 Overweight 18.5-24.9 Normal <18.5 Underweight 17-18.4 Mild thinness 16-16.9 Moderate thinness <16 Severe thinness Biochemical Data: A1C: 7.6 Fasting Glucose: NA 1-2 Hr PPG: NA Nutrition Status Classification: Compromise Mild Nutrition Diagnosis: Food- and Nutrition-Related Knowledge Deficit R/T Lack of prior nutrition-related education AEB inconsistent carbohydrate timing, excess simple sugar choices, and inability to select correct carb choices. Nutrition Intervention: Comprehensive Nutrition Education Nutrition Needs Calories: 1800 Protein: 50-60 g Fluid: 1800cc Other: 1. Modify Carbohydrates: Rec 1500 Kcal meal plan. 2. Modify distribution: 45g per meal, 30g HS snack, 3. Schedule of foods: 3 meals and nightly snack. Education: Basic understanding of meal plan use in diabetes self-management. Modify carbohydrates: Reviewed a sample meal plan for the proper carbohydrate distribution/timing throughout the day. Demonstrated the proper portions of commonly consumed food items. Used food models and measuring cups to illustrate and facilitate dialog. Encouraged measurement of food items for one day of usual food if unsure of portions at home. Discussed food labels and reviewed carbohydrate portions with food choices. Reviewed fiber and fat gram on nutritional labels. Reviewed commonly consumed beverages and encouraged sugar free and low-calorie drink choices. Discussed free foods available throughout the day as snacks or at meals. Discussed basic dining out options incorporating healthy fast food and sit-down restaurant options with carbohydrate counting. Reviewed carbohydrate provision of commonly consumed combination foods. Modify Protein: Discussed portions of protein sources and distribution throughout the day. Reviewed low fat protein sources. Modify Fat: Reviewed fat portions discussing saturated and unsaturated fats. Provided other options for reducing fat content of commonly ordered choices when dining out. Modify Fiber: Reviewed fiber content of foods and included increasing fiber gradually as part of the meal plan. Discussed label reading for fiber content of breads, grains, and cereals. Encouraged increasing serving sizes of vegetables by 2-3 at lunch and supper meals by demonstration using plate method. Nutrition Education: Education Materials: Provided material related to calories, carbohydrate distribution, portion sizes, and label reading topics from sources such as Academy of Nutrition and Dietetics, International Diabetes Center, Alfa Nordisk, and [place] [employer] Diabetes Educators. Referral of Care: Recommend DSME program with RN Communication by phone, fax, or EMR from DSME staff to provider after completion of program/cessation. Chart notes will be available in EMR after 7 days of completion or cessation. Nutrition Monitoring and Evaluation: 1. Pt understanding of nutrition intervention: verbalizes understanding. 2. Monitor endocrine/glucose profile w desired readings to fasting goal less than 126. 3. Patient to achieve weight loss 7% of body weight. 4. Monitor motivation to change behavior to change w goal setting, self-monitoring and/or problem solving. 5. Monitor total energy intake: food log. 6. Monitor willingness to try new foods: food log. 7. Instructed pt. to contact RD for f/u or questions. Telephone number and email provided. 8. Goal: Food logs: Measure carbohydrate portions and document for 1 week. 9. Will follow for changes in progress and assist prn. Nutrition Assessment Comments The complete initial assessment may be deferred based on participants willingness to participate, learning barrier or pending f/u fo (more content not included)... Normal Sid[facility] BD Bone Density DEXAon 05-29 BD Bone [...] risk \X2265\ 3% or a 10-year major osteoporosis-related fracture risk \X2265\ 20% (i.e., clinical vertebral, [...] MD, V. Transcribed by: [place] Technologist: SENIA [facility] Consent for Treatmenton Consent for Treatment [id number]#1.00TIFF [facility] Consent for Treatment [id number]#1.00TIFF [facility] Physician Orderon 05-20-2023 Physician Order [id number]#1.00TIFF [facility] Physician Referralon 024 Physician Referral [id number]#1.00TIFF [facility] community outreach caroti don 02-28-2023 community outreach carotid [place] [address] Ultrasound Report Signed Patient: Nicolas Harris MR#: [id number] : 1960 Acct:[id number] Age/Sex: 62 / F ADM Date: 02/25/23 Loc: Room: Type: DEP REF Attending Dr: Minal Tyson Ordering Provider: CHARLES,MINAL Date of Service: 02/25/23 US/ community outreach carotid: SCREENING Copies to: [facility],OUTREACH CAROTID DUPLEX INDICATION: Community outreach screening [...] the common carotid artery is 1.4 . / community [facility] carotid IMPRESSION: NO HEMODYNAMICALLY SIGNIFICANT STENOSIS OF EITHER EXTRACRANIAL INTERNAL CAROTID ARTERY. BOTH VERTEBRAL ARTERIES ARE PATENT WITH ANTEGRADE FLOW. Impression dictated by: Carmelita Holman MD02/28/2023 10:51 AM Dictation Location: [employer] Tech: Ruby Hutchison Transcribed By: CHRISTIAN 02/28/23 1051 Dictated By: Carmelita Holman MD 02/28/23 1050 Signed By: 02/28/23 1051 Normal [facility] Basic Metabolic Panelon 10-0 Anion gap [Moles/Vol] 9.5 mmol/L Normal 6.0-15.0 [facility] Comment on above: Performed By: #### B MP #### [address] Calcium [Mass/Vol] 8.8 mg/dL Normal 8.6-10.3 [facility] Comment on above: Performed By: #### B MP #### [address] Chloride [Moles/Vol] 104 mmol/L Normal 98-107 [facility] Comment on above: Performed By: #### B MP #### [address] CO2 [Moles/Vol] 25.8 mmol/L Normal 21.0-31.0 [facility] Comment on above: Performed By: #### B MP #### [address] Creatinine [Mass/Vol] 0.61 mg/dL Normal 0.60-1.20 [facility] Comment on above: Performed By: #### B MP #### [address] Creatinine Clr Calc Pharmacy 103.69 Normal [facility] Comment on above: Result Comment: PERF ORMED BY: [place] [address] PATHOLOGIST HUMAN RESOURCE ADVISER HARVINDER GAGE M.D. Performed By: #### B MP #### [address] GFR/1.73 sq M.predicted MDRD (S/P/Bld) [Vol rate/Area] mL/min/{1.73_m2} Normal [facility] Comment on above: Performed By: #### B MP #### [address] Glucose [Mass/Vol] 113 mg/dL High 70-100 [facility] Comment on above: Result Comment: [place] Glucose Reference Range is dependent on time and content of last meal. Glucose of more than 200 mg/dL in a nonstressed, ambulatory subject supports the diagnosis of Diabetes Mellitus. ADA recommended reference range Performed By: #### B MP #### [address] [place] [address] [place] Potassium [Moles/Vol] 4.3 mmol/L Normal 3.5-5.1 [facility] Comment on above: Performed By: #### B MP #### [address] Sodium [Moles/Vol] 135 mmol/L Low 136-145 [facility] Comment on above: Performed By: #### B MP #### [address] Urea nitrogen [Mass/Vol] 8 mg/dL Normal 7-25 [facility] Comment on above: Performed By: #### B MP #### [address] Calcium [Mass/volume] in Ser um or PlasmaOrdered By: Froilan Brown on 12-24-2022 Calcium [Mass/Vol] 8.8 mg/dL 8.6-10.3 [facility] Carbon dioxide, total [Moles /volume] in Serum or PlasmaOrdered By: Froilan Brown on 12-24-2022 CO2 [Moles/Vol] 25.8 mmol/L 21.0-31.0 [facility] Chloride [Moles/volume] in S davi or PlasmaOrdered By: Froilan Brown on 12-24-2022 Chloride [Moles/Vol] 104 mmol/L 98-107 [facility] Creatinine [Mass/volume] in Serum or PlasmaOrdered By: Froilan Brown on 12-24-2022 Creatinine [Mass/Vol] 0.61 mg/dL 0.60-1.20 [facility] ECG 12 lead ECGon 12-24-2022 ECG 12 lead ECG [facility] [place] [address] [place] [address] Electrocardiograph Report Signed Patient: Nicolas Harris MR#: [id number] : 1960 Acct:[id number] Age/Sex: 62 / F ADM Date: 12/24/22 Loc: Room: [address] [place] [address] Type: DIS INOo Attending Dr: Petr Kowalski [...] By Sukhi Hankins MD 12/25/22 1057 Normal [facility] ECG 12 lead ECG [facility] [address] Electrocardiograph Report Signed Patient: Nicolas Harris MR#: [id number] : 1960 Acct:[id number] Age/Sex: 62 / F ADM Date: 12/24/22 Loc: Room: [address] [place] [address] Type: DIS INOo Attending Dr: Petr Kowalski [...] Septal infarct is now present Confirmed by CR SCHULTE FACC REGINA ([id number]) on 12/25/2022 10:57:18 AM Referred By: Electronically Signed By:REGINA HANKINS MD [facility] Transcribed By: MUS Signed By Sukhi Hankins MD 12/25/22 1057 Normal [facility] Glucose [Mass/volume] in Ser um or PlasmaOrdered By: Froilan Brown on 12-24-2022 Glucose [Mass/Vol] 113 mg/dL 70-100 [facility] Comment on above: ADA recommended refe rence rangeRandom Glucose Reference Range is dependent on time and content of last meal. Glucose of more than 200 mg/dL in a nonstressed, ambulatory subject supports the diagnosis of Diabetes Mellitus. No Panel InformationOrdered By: Froilan Brown on 12-24-2022 Estimated GFR (CKD-EPI) > 60.0 mL/Min [facility] Creatinine Clearance (Chem 103.69 [facility] Potassium [Moles/volume] in Serum or PlasmaOrdered By: Froilan Brown on 12-24-2022 Potassium [Moles/Vol] 4.3 mmol/L 3.5-5.1 [facility] Serum or plasma anion gap de terminationOrdered By: Froilan Brown on 12-24-2022 Anion gap [Moles/Vol] 9.5 mmol/L 6.0-15.0 [facility] Sodium [Moles/volume] in Ser um or PlasmaOrdered By: Froilan Brown on 12-24-2022 Sodium [Moles/Vol] 135 mmol/L 136-145 [facility] Troponin I High Sensitivityo n 12-24-2022 Troponin I High Sensitivity 7.7 pg/mL Normal 0.0-15.0 [facility] Comment on above: Result Comment: PERF ORMED BY: [facility] [facility] [address] [place] [address] PATHOLOGIST HUMAN RESOURCE ADVISER HARVINDER GAGE M.D. Performed By: #### H S TROP #### [address] Troponin I.cardiac [Mass/vol ume] in Serum or Plasma by Detection limit <= 0.01 ng/Ordered By: Froilan Brown on 12-24-2022 Troponin I.cardiac DL <= 0.01 ng/mL [Mass/Vol] 7.7 pg/mL 0.0-15.0 [facility] Urea nitrogen [Mass/volume] in Serum or PlasmaOrdered By: Froilan Brown on 12-24-2022 Urea nitrogen [Mass/Vol] 8 mg/dL 7-25 [facility] Telemedicineon 11-11-2022 Telemedicine [id number] Nicolas Harris Mu 1960 F Date Provider [...] Alive Nephew Alive Neg Hx Level of Service:15508 DC OFFICE/OUTPATIENT ESTABLISHED MOD MDM 30-39 MIN Normal [facility] Office Visiton 09-11-2022 Follow-up visit [id number] Nicolas Harris Mu 1960 F Date Provider Department Center 09/11/2022 120-[facility] No family history on file Level of Service:78397 DC OFFICE/OUTPATIENT ESTABLISHED MOD MDM 30-39 MIN Reason for Visit and Comments: Follow-up [348500] - Yearly follow up Normal [facility] CBC AUTO DIFFon 05-27-2022 BASO # 0.1 103/ul Normal 0.0-0.1 [facility] Comment on above: Performed By: #### C BC #### [facility] [address] [place] [address] Dr. Domi Saleem Basophils/100 WBC (Bld) 1.2 % Normal 0.2-2.0 [facility] Comment on above: Performed By: #### C BC #### [facility] [address] [place] [address] Dr. Domi Saleem EO # 0.3 103/ul Normal 0.0-0.7 [facility] Comment on above: Performed By: #### C BC #### [facility] [address] [place] [address] Dr. Domi Saleem Eosinophils/100 WBC (Bld) 3.8 % Normal 0.9-7.0 [facility] Comment on above: Performed By: #### C BC #### [facility] [address] [place] [address] Dr. Domi Saleem Erythrocyte distribution width (RBC) [Ratio] 12.5 % Normal 11.0-15.0 [facility] Comment on above: Performed By: #### C BC #### [facility] [address] [place] [address] Dr. Domi Saleem Hematocrit (Bld) [Volume fraction] 42.5 % Normal 36.0-48.0 [facility] Comment on above: Performed By: #### C BC #### [facility] [address] [place] [address] Dr. Domi Saleem Hemoglobin (Bld) [Mass/Vol] 14.6 g/dL Normal 12.0-16.0 [facility] Comment on above: Performed By: #### C BC #### [facility] [address] [place] [address] Dr. Domi Saleem IG # 0.04 10e3/ul Critically high 0.00-0.03 [facility] Comment on above: Performed By: #### C BC #### [facility] [address] [place] [address] Dr. Domi Saleem IG % 0.6 % Critically high 0.0-0.5 [facility] Comment on above: Performed By: #### C BC #### [facility] [address] [place] [address] Dr. Domi Saleem LYMPH # 1.3 103/ul Normal 1.2-3.8 [facility] Comment on above: Performed By: #### C BC #### [facility] [address] [place] [address] Dr. Domi Saleem Lymphocytes/100 WBC (Bld) 18.5 % Critically low 20.5-60.0 [facility] Comment on above: Performed By: #### C BC #### [facility] [address] [place] [address] Dr. Domi Saleem MANUAL DIFF REQ NO Normal [facility] Comment on above: Performed By: #### C BC #### [facility] [address] [place] [address] Dr. Domi Saleem MCH (RBC) [Entitic mass] 31.1 pg Normal 26.7-34.0 [facility] Comment on above: Performed By: #### C BC #### [facility] [address] [place] [address] Dr. Domi Saleem MCHC (RBC) [Mass/Vol] 34.4 g/dL Normal 29.9-35.2 [facility] Comment on above: Performed By: #### C BC #### [facility] [address] [place] [address] Dr. Domi Saleem MCV (RBC) [Entitic vol] 90.4 fL Normal 81.0-99.0 [facility] Comment on above: Performed By: #### C BC #### [facility] [address] [place] [address] Dr. Domi Saleem MONO # 0.3 103/ul Normal 0.3-0.8 [facility] Comment on above: Performed By: #### C BC #### [facility] [address] [place] [address] Dr. Domi Saleem Monocytes/100 WBC (Bld) 4.2 % Normal 1.7-12.0 [facility] Comment on above: Performed By: #### C BC #### [facility] [address] [place] [address] Dr. Domi Saleem NEUT # 5.0 103/ul Normal 1.4-6.5 [facility] Comment on above: Performed By: #### C BC #### [facility] [address] [place] [address] Dr. Domi Saleem Neutrophils/100 WBC (Bld) 71.7 % Normal 43.0-75.0 [facility] Comment on above: Performed By: #### C BC #### [facility] [address] [place] [address] Dr. Domi Saleem Platelet mean volume (Bld) [Entitic vol] 8.6 fL Critically low 9.5-13.5 [facility] Comment on above: Performed By: #### C BC #### [facility] [address] [place] [address] Dr. Domi Saleem PLT 265 103/ul Normal 150-450 [facility] Comment on above: Performed By: #### C BC #### [facility] [address] [place] [address] Dr. Domi Saleem RBC 4.70 106/ul Normal 4.20-5.40 [facility] Comment on above: Performed By: #### C BC #### [facility] [address] [place] [address] Dr. Domi Saleem WBC 6.9 103/ul Normal 4.0-11.0 [facility] Comment on above: Performed By: #### C BC #### [facility] [address] [place] [address] Dr. Domi Saleem PROF 14(COMP METB)on 023 Albumin [Mass/Vol] 3.7 g/dL Normal 3.4-5.0 [facility] Comment on above: Performed By: #### C MP #### [facility] [address] [place] [address] Dr. Domi Saleem Albumin/Globulin [Mass ratio] 0.9 {ratio} Normal [facility] Comment on above: Performed By: #### C MP #### [facility] [address] [place] [address] Dr. Domi Saleem ALP [Catalytic activity/Vol] 101 U/L Normal 46-116 [facility] Comment on above: Performed By: #### C MP #### [facility] [address] [place] [address] Dr. Domi Saleem ALT [Catalytic activity/Vol] 15 U/L Normal 14-59 [facility] Comment on above: Performed By: #### C MP #### [facility] [address] [place] [address] Dr. Domi Saleem Anion gap [Moles/Vol] 11.9 mmol/L Normal Th e [facility] Comment on above: Performed By: #### C MP #### [facility] [address] [place] [address] Dr. Domi Saleem AST [Catalytic activity/Vol] 16 U/L Normal 15-37 [facility] Comment on above: Performed By: #### C MP #### [facility] [address] [place] [address] Dr. Domi Saleem Bilirubin [Mass/Vol] 0.3 mg/dL Normal 0.2-1.0 [facility] Comment on above: Performed By: #### C MP #### [facility] [address] [place] [address] Dr. Domi Saleem Calcium [Mass/Vol] 9.0 mg/dL Normal 8.5-10.1 [facility] Comment on above: Performed By: #### C MP #### [facility] [address] [place] [address] Dr. Domi Saleem Chloride [Moles/Vol] 100 mmol/L Normal 98-107 [facility] Comment on above: Performed By: #### C MP #### [facility] [address] [place] [address] Dr. Domi Saleem CO2 [Moles/Vol] 29.0 mmol/L Normal 21.0-32.0 [facility] Comment on above: Performed By: #### C MP #### [facility] [address] [place] [address] Dr. Domi Saleem Creatinine [Mass/Vol] 0.69 mg/dL Normal 0.55-1.02 [facility] Comment on above: Performed By: #### C MP #### [facility] [address] [place] [address] Dr. Domi Saleem EGFR-AF CHILEAN >60 Normal >=60 [facility] Comment on above: Performed By: #### C MP #### [facility] [address] [place] [address] Dr. Domi Saleem EGFR-NON AF CHILEAN >60 Normal >=60 [facility] Comment on above: Performed By: #### C MP #### [facility] [address] [address] [address] Domi Saleem Globulin (S) [Mass/Vol] 4.2 g/dL Normal [facility] Comment on above: Performed By: #### C MP #### [facility] [address] [address] [address] Domi Saleem Glucose [Mass/Vol] 124 mg/dL Critically high 74-106 [facility] Comment on above: Performed By: #### C MP #### [facility] [address] [address] [address] Domi Saleem Potassium [Moles/Vol] 4.9 mmol/L Normal 3.5-5.1 [facility] Comment on above: Performed By: #### C MP #### [facility] [address] [place] [address] Dr. Domi Saleem Protein [Mass/Vol] 7.9 g/dL Normal 6.4-8.2 [facility] Comment on above: Performed By: #### C MP #### [facility] [address] [place] [address] Dr. Domi Saleem Sodium [Moles/Vol] 136 mmol/L Normal 136-145 [facility] Comment on above: Performed By: #### C MP #### [facility] [address] [place] [address] Dr. Domi Saleem Urea nitrogen [Mass/Vol] 9.0 mg/dL Normal 7.0-18.0 [facility] Comment on above: Performed By: #### C MP #### [facility] [address] [place] [address] Dr. Domi Saleem Urea nitrogen/Creatinine [Mass ratio] 13.0 mg/mg Normal [facility] Comment on above: Performed By: #### C MP #### [facility] [address] [place] [address] Dr. Domi Saleem SED RATE WESTERGRENon 2022 SED RATE 21 mm/hr Normal <=30 [facility] Comment on above: Performed By: #### S EDR #### [facility] [address] [address] [address] Domi Saleem CHEMISTRYOrdered By: SYSTEM SYSTEM on 02-11-2022 Anion gap [Moles/Vol] 14 mmol/L Normal 6 - 16 mEq/L [facility] Calcium [Mass/Vol] 9.2 mg/dL Normal 8.9 - 11. 1 mg/dL [facility] Chloride [Moles/Vol] 92 mmol/L Low 101 - 1 11 mmol/L [facility] CO2 [Moles/Vol] 28 mmol/L Normal 21 - 31 mmol/L [facility] Creatinine [Mass/Vol] 0.8 mg/dL Normal 0.5 - 1.3 mg/dL [facility] GFR/1.73 sq M.predicted among blacks MDRD (S/P/Bld) [Vol rate/Area] mL/min/1.73 m2 Normal >=59mL/min /1.73 m2 [facility] S GFR/1.73 sq M.predicted among non-blacks MDRD (S/P/Bld) [Vol rate/Area] mL/min/1.73 m2 Normal >=59mL/min /1.73 m2 [facility] [place] [facility] [place] Chem S Glucose [Mass/Vol] 108 mg/dL Normal 55 - 199 mg/dL [facility] Potassium [Moles/Vol] 4.0 mmol/L Normal 3.5 - 5.3 mmol/L [facility] Sodium [Moles/Vol] 130 mmol/L Low 135 - 145 mmol/L [facility] Urea nitrogen [Mass/Vol] 16 mg/dL Normal 5 - 21 mg/dL [facility] Urea nitrogen/Creatinine [Mass ratio] 20 mg/mg [...] MCH (RBC) [Entitic mass] 31.6 pg Normal 27.0 - 34.0 pg [facility] MCHC (RBC) [Mass/Vol] 35.2 g/dL Normal 31.4 - 36.0 gm/dL [facility] MCV (RBC) [Entitic vol] 89.7 fL Normal 80.0 - 100.0 fL [facility] Platelet mean volume (Bld) [Entitic vol] 6.8 fL Normal 6.4 - 10.8 fL [facility] Platelets (Bld) [#/Vol] 275.0 E9/L Normal 150.0 - 500.0 E9/L [facility] RBC (Bld) [#/Vol] 4.8 E12/L Normal 4.3 - 5.9 E12/L [facility] WBC corrected for nucl RBC Auto (Bld) [#/Vol] 7.3 E9/L Normal 4.0 - 11.0 E9/L [facility] [place] [facility] [place] [facility] CBC AUTO DIFFon 11-19-2021 BASO # 0.1 103/ul Normal 0.0-0.1 [facility] Comment on above: Performed By: #### C BC #### [facility] [address] [address] [address] Domi Saleem Basophils/100 WBC (Bld) 0.9 % Normal 0.2-2.0 [facility] Comment on above: Performed By: #### C BC #### [facility] [address] [address] [address] Domi Saleem EO # 0.2 103/ul Normal 0.0-0.7 [facility] Comment on above: Performed By: #### C BC #### [facility] [address] [address] [address] Domi Saleem Eosinophils/100 WBC (Bld) 2.4 % Normal 0.9-7.0 [facility] Comment on above: Performed By: #### C BC #### [facility] [address] [address] [address] Domi Saleem Erythrocyte distribution width (RBC) [Ratio] 12.6 % Normal 11.0-15.0 [facility] Comment on above: Performed By: #### C BC #### [facility] [address] [place] [address] Dr. Domi Saleem Hematocrit (Bld) [Volume fraction] 44.4 % Normal 36.0-48.0 [facility] Comment on above: Performed By: #### C BC #### [facility] [address] [place] [address] Dr. Domi Saleem Hemoglobin (Bld) [Mass/Vol] 15.1 g/dL Normal 12.0-16.0 [facility] Comment on above: Performed By: #### C BC #### [facility] [address] [place] [address] Dr. Domi Saleem IG # 0.04 10e3/ul Critically high 0.00-0.03 [facility] Comment on above: Performed By: #### C BC #### [facility] [address] [place] [address] Dr. Domi Saleem IG % 0.5 % Normal 0.0-0.5 [facility] Comment on above: Performed By: #### C BC #### [facility] [address] [place] [address] Dr. Domi Saleem LYMPH # 1.6 103/ul Normal 1.2-3.8 [facility] Comment on above: Performed By: #### C BC #### [facility] [address] [place] [address] Dr. Domi Saleem Lymphocytes/100 WBC (Bld) 19.1 % Critically low 20.5-60.0 [facility] Comment on above: Performed By: #### C BC #### [facility] [address] [place] [address] Dr. Domi Saleem MANUAL DIFF REQ NO Normal [facility] Comment on above: Performed By: #### C BC #### [facility] [address] [place] [address] Dr. Domi Saleem MCH (RBC) [Entitic mass] 31.5 pg Normal 26.7-34.0 [facility] Comment on above: Performed By: #### C BC #### [facility] [address] [address] [address] Domi Saleem MCHC (RBC) [Mass/Vol] 34.0 g/dL Normal 29.9-35.2 [facility] Comment on above: Performed By: #### C BC #### [facility] [address] [address] [address] Domi Saleem MCV (RBC) [Entitic vol] 92.5 fL Normal 81.0-99.0 [facility] Comment on above: Performed By: #### C BC #### [facility] [address] [address] [address] Domi Saleem MONO # 0.5 103/ul Normal 0.3-0.8 [facility] Comment on above: Performed By: #### C BC #### [facility] [address] [place] [address] Dr. Domi Saleem Monocytes/100 WBC (Bld) 6.1 % Normal 1.7-12.0 [facility] Comment on above: Performed By: #### C BC #### [facility] [address] [place] [address] Dr. Domi Saleem NEUT # 5.8 103/ul Normal 1.4-6.5 [facility] Comment on above: Performed By: #### C BC #### [facility] [address] [place] [address] Dr. Domi Saleem Neutrophils/100 WBC (Bld) 71.0 % Normal 43.0-75.0 [facility] Comment on above: Performed By: #### C BC #### [facility] [address] [place] [address] Dr. Domi Saleem Platelet mean volume (Bld) [Entitic vol] 8.7 fL Critically low 9.5-13.5 [facility] Comment on above: Performed By: #### C BC #### [facility] [address] [place] [address] Dr. Domi Saleem PLT 246 103/ul Normal 150-450 [facility] Comment on above: Performed By: #### C BC #### [facility] [address] [place] [address] Dr. Domi Saleem RBC 4.80 106/ul Normal 4.20-5.40 [facility] Comment on above: Performed By: #### C BC #### [facility] [address] [place] [address] Dr. Domi Saleem WBC 8.2 103/ul Normal 4.0-11.0 [facility] Comment on above: Performed By: #### C BC #### [facility] [address] [place] [address] Dr. Domi Saleem GLYCOHEMOGLOBIN A1Con 2021 ADA RECOMMENDATION SEE BELOW Normal [facility] Comment on above: Result Comment: ADA RECOMMENDED LIMIT 4.0 - 6.0 ADA THERAPEUTIC TARGET < 7.0 ACTION SUGGESTED > 7.0 Performed By: #### A 1C #### [facility] [address] [place] [address] Dr. Domi Saleem Glucose [Mass/Vol] 117 mg/dL Normal [facility] Comment on above: Performed By: #### A 1C #### [facility] [address] [place] [address] Dr. Domi Saleem HbA1c (Bld) [Mass fraction] 5.7 % Normal 4.5-6.2 [facility] Comment on above: Performed By: #### A 1C #### [facility] [address] [place] [address] Dr. Domi Saleem PROF 14(COMP METB)on 022 Albumin [Mass/Vol] 4.0 g/dL Normal 3.4-5.0 [facility] Comment on above: Performed By: #### C MP #### [facility] [address] [place] [address] Dr. Domi Saleem Albumin/Globulin [Mass ratio] 1.1 {ratio} Normal [facility] Comment on above: Performed By: #### C MP #### [facility] [address] [place] [address] Dr. Domi Saleem ALP [Catalytic activity/Vol] 91 U/L Normal 46-116 [facility] Comment on above: Performed By: #### C MP #### [facility] [address] [address] [address] Domi Saleem ALT [Catalytic activity/Vol] 16 U/L Normal 14-59 [facility] Comment on above: Performed By: #### C MP #### [facility] [address] [address] [address] Domi Saleem Anion gap [Moles/Vol] 10.3 mmol/L Normal Th [facility] Comment on above: Performed By: #### C MP #### [facility] [address] [address] [address] Domi Saleem AST [Catalytic activity/Vol] 24 U/L Normal 15-37 [facility] Comment on above: Performed By: #### C MP #### [facility] [address] [place] [address] Dr. Domi Saleem Bilirubin [Mass/Vol] 0.5 mg/dL Normal 0.2-1.0 [facility] Comment on above: Performed By: #### C MP #### [facility] [address] [place] [address] Dr. Domi Saleem Calcium [Mass/Vol] 9.1 mg/dL Normal 8.5-10.1 [facility] Comment on above: Performed By: #### C MP #### [facility] [address] [place] [address] Dr. Domi Saleem Chloride [Moles/Vol] 95 mmol/L Critically low 98-107 [facility] Comment on above: Performed By: #### C MP #### [facility] [address] [place] [address] Dr. Domi Saleem CO2 [Moles/Vol] 27.4 mmol/L Normal 21.0-32.0 [facility] Comment on above: Performed By: #### C MP #### [facility] [address] [address] [address] Domi Saleem Creatinine [Mass/Vol] 0.77 mg/dL Normal 0.55-1.02 [facility] Comment on above: Performed By: #### C MP #### [facility] [address] [address] [address] Domi Saleem EGFR-AF CHILEAN >60 Normal >=60 [facility] Comment on above: Performed By: #### C MP #### [facility] [address] [address] [address] Domi Saleem EGFR-NON AF CHILEAN >60 Normal >=60 [facility] Comment on above: Performed By: #### C MP #### [facility] [address] [address] [address] Domi Saleem Globulin (S) [Mass/Vol] 3.8 g/dL Normal [facility] Comment on above: Performed By: #### C MP #### [facility] [address] [place] [address] Dr. Domi Saleem Glucose [Mass/Vol] 141 mg/dL Critically high 74-106 T [facility] Comment on above: Performed By: #### C MP #### [facility] [address] [place] [address] Dr. Domi Saleem Potassium [Moles/Vol] 4.7 mmol/L Normal 3.5-5.1 [facility] Comment on above: Performed By: #### C MP #### [facility] [address] [place] [address] Dr. Domi Saleem Protein [Mass/Vol] 7.8 g/dL Normal 6.4-8.2 [facility] Comment on above: Performed By: #### C MP #### [facility] [address] [place] [address] Dr. Domi Saleem Sodium [Moles/Vol] 128 mmol/L Critically low 136-145 Th [facility] Comment on above: Performed By: #### C MP #### [facility] [address] [address] [address] Domi Saleem Urea nitrogen [Mass/Vol] 14.0 mg/dL Normal 7.0-18.0 [facility] Comment on above: Performed By: #### C MP #### [facility] [address] [address] [address] Domi Saleem Urea nitrogen/Creatinine [Mass ratio] 18.2 mg/mg Normal [facility] Comment on above: Performed By: #### C MP #### [facility] [address] [place] [address] Dr. Domi Saleem SED RATE WESTERGRENon 2021 SED RATE 34 mm/hr Critically high <=30 [facility] Comment on above: Performed By: #### S EDR #### [facility] [address] [place] [address] Dr. Domi Saleem CBC AUTO DIFFon 07-18-2021 BASO # 0.1 103/ul Normal 0.0-0.1 [facility] Comment on above: Performed By: #### C BC #### [facility] [address] [place] [address] Dr. Domi Saleem Basophils/100 WBC (Bld) 1.2 % Normal 0.2-2.0 [facility] Comment on above: Performed By: #### C BC #### [facility] [address] [place] [address] Dr. Domi Saleem EO # 0.2 103/ul Normal 0.0-0.7 [facility] Comment on above: Performed By: #### C BC #### [facility] [address] [place] [address] Dr. Domi Saleem Eosinophils/100 WBC (Bld) 4.0 % Normal 0.9-7.0 [facility] Comment on above: Performed By: #### C BC #### [facility] [address] [place] [address] Dr. Domi Saleem Erythrocyte distribution width (RBC) [Ratio] 12.8 % Normal 11.0-15.0 [facility] Comment on above: Performed By: #### C BC #### [facility] [address] [place] [address] Dr. Domi Saleem Hematocrit (Bld) [Volume fraction] 45.2 % Normal 36.0-48.0 [facility] Comment on above: Performed By: #### C BC #### [facility] [address] [place] [address] Dr. Domi Saleem Hemoglobin (Bld) [Mass/Vol] 15.0 g/dL Normal 12.0-16.0 [facility] Comment on above: Performed By: #### C BC #### [facility] [address] [place] [address] Dr. Domi Saleem IG # 0.02 10e3/ul Normal 0.00-0.03 [facility] Comment on above: Performed By: #### C BC #### [facility] [address] [place] [address] Dr. Domi Saleem IG % 0.4 % Normal 0.0-0.5 [facility] Comment on above: Performed By: #### C BC #### [facility] [address] [place] [address] Dr. Domi Saleem LYMPH # 1.1 103/ul Critically low 1.2-3.8 [facility] Comment on above: Performed By: #### C BC #### [facility] [address] [place] [address] Dr. Domi Saleem Lymphocytes/100 WBC (Bld) 22.8 % Normal 20.5-60.0 [facility] Comment on above: Performed By: #### C BC #### [facility] [address] [place] [address] Dr. Domi Saleem MANUAL DIFF REQ NO Normal [facility] Comment on above: Performed By: #### C BC #### [facility] [address] [place] [address] Dr. Domi Saleem MCH (RBC) [Entitic mass] 31.4 pg Normal 26.7-34.0 [facility] Comment on above: Performed By: #### C BC #### [facility] [address] [place] [address] Dr. Domi Saleem MCHC (RBC) [Mass/Vol] 33.2 g/dL Normal 29.9-35.2 [facility] Comment on above: Performed By: #### C BC #### [facility] [address] [place] [address] Dr. Domi Saleem MCV (RBC) [Entitic vol] 94.8 fL Normal 81.0-99.0 [facility] Comment on above: Performed By: #### C BC #### [facility] [address] [place] [address] Dr. Domi Saleem MONO # 0.3 103/ul Normal 0.3-0.8 [facility] Comment on above: Performed By: #### C BC #### [facility] [address] [address] [address] Domi Saleem Monocytes/100 WBC (Bld) 6.8 % Normal 1.7-12.0 [facility] Comment on above: Performed By: #### C BC #### [facility] [address] [place] [address] Dr. Domi Saleem NEUT # 3.2 103/ul Normal 1.4-6.5 [facility] Comment on above: Performed By: #### C BC #### [facility] [address] [place] [address] Dr. Domi Saleem Neutrophils/100 WBC (Bld) 64.8 % Normal 43.0-75.0 [facility] Comment on above: Performed By: #### C BC #### [facility] [address] [place] [address] Dr. Domi Saleem Platelet mean volume (Bld) [Entitic vol] 8.9 fL Critically low 9.5-13.5 [facility] Comment on above: Performed By: #### C BC #### [facility] [address] [place] [address] Dr. Domi Saleem PLT 222 103/ul Normal 150-450 [facility] Comment on above: Performed By: #### C BC #### [facility] [address] [place] [address] Dr. Domi Saleem RBC 4.77 106/ul Normal 4.20-5.40 [facility] Comment on above: Performed By: #### C BC #### [facility] [address] [place] [address] Dr. Domi Saleem WBC 5.0 103/ul Normal 4.0-11.0 [facility] Comment on above: Performed By: #### C BC #### [facility] [address] [place] [address] Dr. Domi Saleem PROF 14(COMP METB)on 022 Albumin [Mass/Vol] 3.6 g/dL Normal 3.4-5.0 [facility] Comment on above: Performed By: #### C MP #### [facility] [address] [place] [address] Dr. Domi Saleem Albumin/Globulin [Mass ratio] 1.0 {ratio} Normal [facility] Comment on above: Performed By: #### C MP #### [facility] [address] [place] [address] Dr. Domi Saleem ALP [Catalytic activity/Vol] 79 U/L Normal 46-116 [facility] Comment on above: Performed By: #### C MP #### [facility] [address] [place] [address] Dr. Domi Saleem ALT [Catalytic activity/Vol] 19 U/L Normal 14-59 [facility] Comment on above: Performed By: #### C MP #### [facility] [address] [place] [address] Dr. Domi Saleem Anion gap [Moles/Vol] 10.0 mmol/L Normal [facility] Comment on above: Performed By: #### C MP #### [facility] [address] [place] [address] Dr. Domi Saleem AST [Catalytic activity/Vol] 13 U/L Critically low 15-37 [facility] Comment on above: Performed By: #### C MP #### [facility] [address] [place] [address] Dr. Domi Saleem Bilirubin [Mass/Vol] 0.3 mg/dL Normal 0.2-1.0 [facility] Comment on above: Performed By: #### C MP #### [facility] [address] [place] [address] Dr. Domi Saleem Calcium [Mass/Vol] 8.4 mg/dL Critically low 8.5-10.1 [facility] Comment on above: Performed By: #### C MP #### [facility] [address] [place] [address] Dr. Domi Saleem Chloride [Moles/Vol] 101 mmol/L Normal 98-107 [facility] Comment on above: Performed By: #### C MP #### [facility] [address] [place] [address] Dr. Domi Saleem CO2 [Moles/Vol] 31.3 mmol/L Normal 21.0-32.0 [facility] Comment on above: Performed By: #### C MP #### [facility] [address] [place] [address] Dr. Domi Saleem Creatinine [Mass/Vol] 0.75 mg/dL Normal 0.55-1.02 [facility] Comment on above: Performed By: #### C MP #### [facility] [address] [place] [address] Dr. Domi Saleem EGFR-AF CHILEAN >60 Normal >=60 [facility] Comment on above: Performed By: #### C MP #### [facility] [address] [place] [address] Dr. Domi Saleem EGFR-NON AF CHILEAN >60 Normal >=60 [facility] Comment on above: Performed By: #### C MP #### [facility] [address] [place] [address] Dr. Domi Saleem Globulin (S) [Mass/Vol] 3.6 g/dL Normal [facility] Comment on above: Performed By: #### C MP #### [facility] [address] [place] [address] Dr. Domi Saleem Glucose [Mass/Vol] 120 mg/dL Critically high 74-106 [facility] Comment on above: Performed By: #### C MP #### [facility] [address] [place] [address] Dr. Domi Saleem Potassium [Moles/Vol] 5.3 mmol/L Critically high 3.5-5.1 [facility] Comment on above: Performed By: #### C MP #### [facility] [address] [place] [address] Dr. Domi Saleem Protein [Mass/Vol] 7.2 g/dL Normal 6.1-8.2 [facility] Comment on above: Performed By: #### C MP #### [facility] [address] [place] [address] Dr. Domi Saleem Sodium [Moles/Vol] 137 mmol/L Normal 136-145 [facility] Comment on above: Performed By: #### C MP #### [facility] [address] [address] [address] Domi Saleem Urea nitrogen [Mass/Vol] 20.0 mg/dL Critically high 7.0-18.0 [facility] Comment on above: Performed By: #### C MP #### [facility] [address] [place] [address] Dr. Domi Saleem Urea nitrogen/Creatinine [Mass ratio] 26.7 mg/mg Normal [facility] Comment on above: Performed By: #### C MP #### [facility] [address] [place] [address] Dr. Domi Saleem SED RATE [facility] 2021 SED RATE 13 mm/hr Normal <=30 [facility] Comment on above: Performed By: #### S EDR #### [facility] [address] [place] [address] Dr. Domi Saleem CNCory 08-20-2018 CNOVS Visit (SP) Office (H EMA) NICOLAS HARRIS ([id number]) 1960 F Date Time Provider Department 08/20/18 11:15 AM LEDY GILMAN During your visit today, we recorded the following information about you: Temperature Pulse Respiration Blood pressure 98.6 degrees 61/minute 18/minute 142/80 Weight Height 115.5 kg 1.6 m Ledy Gilman MD 08/20/2018 11:48 AM Signed HPI Nicolas Brandt is a 57 year old female who [...] CAP) Take two(2) times daily. No current facility-administered medications for this visit. ALLERGIES Allergen Reactions [...] disturbance, mood disorder and recent psychosocial stressors. HEMATOLOGY/LYMPHOLOGY: Negative for prolonged bleeding, bruising easily or [...] ABS GRAN CT + CBC (FOR REMOTE [facility] USE) - COMP METABOLIC PANEL - PROTEIN ELECTROPHORESIS W/INTERP - IMMUNOFIXATION SCREEN, SERUM - KAPPA/GERMAIN,FREE,SER - LUPUS ANTICOAG PL 2. 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 Will check labs and see me in follow up - ABS GRAN CT + CBC (FOR REMOTE [facility] USE) - COMP METABOLIC PANEL - PROTEIN ELECTROPHORESIS W/INTERP - IMMUNOFIXATION SCREEN, SERUM - KAPPA/GERMAIN,FREE,SER - LUPUS ANTICOAG PL Ledy Gilman MD Referring Provider: CARMELITA SINGH JR [[id number]] Allergies As of Date: 08/20/2018 Noted Allergy Reaction CODEINE 07/12/2009 14 - Other: See Comments Comments: severe headaches REGLAN (METOCLOPRAMIDE HCL) 07/12/2009 5 - Intolerance SULFA (SULFONAMIDE ANTIBIOTICS) 08/19/2018 9 - Itching Date Reviewed: 08/20/2018 Reviewed by: Luann Beck - Fully Assessed Reason for Visit: positive spep/siep [Other] Cmt: new patient consult Primary Visit Diagnosis:Lupus anticoagulant disorder (HCC) [D68.62] Other Visit Diagnosis:Monoclonal gammopathy [D47.2] Order(s):ABS GRAN CT + CBC (FOR REMOTE [facility] USE) [SQRAGCBC] Order #: [id number] FUTURE COMP METABOLIC PANEL [SQCMP] Order #: [id number] FUTURE PROTEIN ELECTROPHORESIS W/INTERP [SQSEPG] Order #: [id number] FUTURE IMMUNOFIXATION SCREEN, SERUM [SQIFESC] Order #: [id number] FUTURE KAPPA/GERMAIN,FREE,SER [SQKLFRS] Order #: [id number] FUTURE LUPUS ANTICOAG PL [SQLUPUSP] Order #: [id number] FUTURE Disposition: Return in about 1 year [...] Status:Closed by LEDY GILMAN MD on 08/20/18 Normal [facility] PROGRESSon 08-20-2018 Protein mass conc HNO ID: [id number] Author: Ledy Gilman Service: ? Author Type: [...] CAP) Take two(2) times daily. No current facility-administered medications for this visit. ALLERGIES Allergen Reactions [...] disturbance, mood disorder and recent psychosocial stressors. HEMATOLOGY/LYMPHOLOGY: Negative for prolonged bleeding, bruising easily or [...] ABS GRAN CT + CBC (FOR REMOTE [facility] USE) - COMP METABOLIC PANEL - PROTEIN ELECTROPHORESIS W/INTERP - IMMUNOFIXATION SCREEN, SERUM - KAPPA/GERMAIN,FREE,SER - LUPUS ANTICOAG PL 2. 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 Will check labs and see me in follow up - ABS GRAN CT + CBC (FOR REMOTE [facility] USE) - COMP METABOLIC PANEL - PROTEIN ELECTROPHORESIS W/INTERP - IMMUNOFIXATION SCREEN, SERUM - KAPPA/GERMAIN,FREE,SER - LUPUS ANTICOAG PL Ledy Gilman MD Normal [facility] Vital Signs Date Time Vital Sign Value Performing Clinician Facility 08-19-2023 10:39-0400 Body height 157.48 cm MD Merissa Chaudhary Work Phone: [facility] 08-19-2023 10:39-0400 Body mass index (BMI) [Ratio] 48.4 kg/m2 MD Merissa Chaudhary Work Phone: [facility] 08-19-2023 10:39-0400 Body weight 120.2 kg MD Merissa Chaudhary Work Phone: [facility] 08-19-2023 10:39-0400 Diastolic blood pressure 80 mm[Hg] MD eMrissa Chaudhary Work Phone: [facility] 08-19-2023 10:39-0400 Heart rate 73 /min MD Merissa Chaudhary Work Phone: [facility] 08-19-2023 10:39-0400 SaO2% (BldA) [Mass fraction] 98 % MD Merissa Chaudhary Work Phone: [facility] 08-19-2023 10:39-0400 Systolic blood pressure 150 mm[Hg] MD Merissa Chaudhary Work Phone: [facility] 05-08-2023 14:56-0500 Body height 157.48 cm MD Merissa Chaudhary Work Phone: [facility] 05-08-2023 14:56-0500 Body mass index (BMI) [Ratio] 42.6 kg/m2 MD Merissa Chaudhary Work Phone: [facility] 05-08-2023 14:56-0500 Body weight 105.74 kg MD Merissa Chaudhary Work Phone: [facility] 05-08-2023 14:56-0500 Diastolic blood pressure 85 mm[Hg] MD Merissa Chaudhary Work Phone: [facility] 05-08-2023 14:56-0500 Heart rate 85 /min MD Merissa Chaudhary Work Phone: [facility] 05-08-2023 14:56-0500 Systolic blood pressure 151 mm[Hg] MD Merissa Chaudhary Work Phone: [facility] 12-27-2022 14:45-0400 Body height 157.48 cm Merissa Chaudhary Other [employer] [facility] [employer] Other 12-27-2022 14:45-0400 Body mass index (BMI) [Ratio] 38.59 kg/m2 Merissa Chaudhary Other [employer] Other 12-27-2022 14:45-0400 Body weight 95.71 kg Merissa Chaudhary Other [employer] Other 12-27-2022 14:45-0400 Diastolic blood pressure 81 mm[Hg] Merissa Chaudhary Other [employer] Other 12-27-2022 14:45-0400 SaO2% (BldA) [Mass fraction] 99 % Merissa Chaudhary Other [employer] Other 12-27-2022 14:45-0400 Systolic blood pressure 116 mm[Hg] Merissa Chaudhary Other [employer] Other 12-24-2022 08:00-0400 Body temperature 98.2 [degF] MD Merissa Chaudhary Work Phone: [facility] 12-24-2022 08:00-0400 Diastolic blood pressure 78 mm[Hg] MD Merissa Chaudhary Work Phone: [facility] 12-24-2022 08:00-0400 Heart rate 93 /min MD Merissa Chaudhary Work Phone: [facility] 12-24-2022 08:00-0400 Respiratory rate 18 /min MD Merissa Chaudhary Work Phone: [facility] 12-24-2022 08:00-0400 SaO2% (BldA) [Mass fraction] 99 % MD Merissa Chaudhary Work Phone: [facility] 12-24-2022 08:00-0400 Systolic blood pressure 126 mm[Hg] MD Merissa Chaudhary Work Phone: [facility] 12-24-2022 02:42-0400 Body height 157.48 cm MD Merissa Chaudhary Work Phone: [facility] 12-24-2022 02:42-0400 Body weight 94.4 kg MD Merissa Chaudhary Work Phone: [facility] 11-15-2022 13:00-0400 Body height 157.48 cm Merissa Chaudhary Other [facility] [employer] Other 11-15-2022 13:00-0400 Body mass index (BMI) [Ratio] 39.69 kg/m2 Merissa Chaudhary Other [employer] [facility] [employer] Other 11-15-2022 13:00-0400 Body weight 98.43 kg Merissa Chaudhary Other [facility] [employer] Other 11-15-2022 13:00-0400 Diastolic blood pressure 78 mm[Hg] Merissa Chaudhary Other [employer] Other 11-15-2022 13:00-0400 Systolic blood pressure 140 mm[Hg] Merissa Chaudhary Other [employer] Other 09-12-2022 11:30-0400 Body height 157.48 cm Merissa Chaudhary Other [employer] Other 09-12-2022 11:30-0400 Body mass index (BMI) [Ratio] 39.14 kg/m2 Merissa Chaudhary Other [employer] Other 09-12-2022 11:30-0400 Body weight 97.07 kg Merissa Chaudhary Other [employer] Other 09-12-2022 11:30-0400 Diastolic blood pressure 85 mm[Hg] Merissa Chaudhary Other [employer] Other 09-12-2022 11:30-0400 Systolic blood pressure 157 mm[Hg] Merissa Chaudhary Other [employer] Other 04-29-2022 09:45-0500 Body height 157.48 cm Merissa Chaudhary Other [employer] Other 04-29-2022 09:45-0500 Body mass index (BMI) [Ratio] 47.55 kg/m2 Merissa Chaudhary Other [employer] Other 04-29-2022 09:45-0500 Body weight 117.94 kg Merissa Chaudhary Other [employer] Other 04-29-2022 09:45-0500 Diastolic blood pressure 88 mm[Hg] Merissa Chaudhary Other [employer] Other 04-29-2022 09:45-0500 SaO2% (BldA) [Mass fraction] 97 % Merissa Chaudhary Other [facility] [employer] Other 04-29-2022 09:45-0500 Systolic blood pressure 132 mm[Hg] Merissa Chaudhary Other [facility] [employer] Other 07-07-2020 07:58-0400 Body height 160.02 cm Merissa Chaudhary Work Phone: [facility] 07-07-2020 07:58-0400 Body weight 97.06 kg Merissa Chaudhary Work Phone: [facility] Encounters Encounter Date Encounter Type Care Provider Facility Start: 08-19-2023 End: 08-19-2023 ambulatory MD Merissa Chaudhary Work Phone: [facility] Work Phone: Start: 08-19-2023 End: 08-19-2023 Patient encounter procedure MD [facility] Work Phone: Start: 07-10-2023 Non-patient / Non-visit MD Marlen Chaudhary Work Phone: [facility] [employer] Work Phone: Start: 07-08-2023 End: 07-08-2023 ambulatory Pam Wagoner Facility:[facility] Start: 07-08-2023 End: 07-08-2023 ambulatory MD Merissa Chaudhary Work Phone: [facility] Work Phone: Start: 07-08-2023 End: 07-08-2023 Patient encounter procedure MD Merissa Chaudhary Work Phone: [facility] Start: 06-13-2023 End: 06-13-2023 ambulatory DAYA [facility] Start: 06-04-2023 End: 06-04-2023 ambulatory JOSH POCOS Not Available Start: 05-29-2023 End: 08-27-2023 ambulatory Josh Pocos Facility:[facility] [place] Start: 05-29-2023 End: 08-27-2023 Recurring Josh Pocos [facility] Start: 05-29-2023 End: 05-29-2023 ambulatory MERISSA CHAUDHARY Facility:[facility] [place] Start: 05-29-2023 End: 05-29-2023 Patient encounter procedure Josh Pocos [facility] Start: 05-16-2023 End: 05-16-2023 ambulatory JOSH POCOS Not Available Start: 05-08-2023 End: 05-08-2023 ambulatory MD Merissa Chaudhary Work Phone: [facility] Work Phone: Start: 05-08-2023 End: 05-08-2023 Patient encounter procedure MD Merissa Chaudhary Work Phone: [facility] Work Phone: Start: 02-25-2023 End: 02-25-2023 ambulatory Merissa Chaudhary Facility:[facility] Start: 02-25-2023 End: 02-25-2023 ambulatory MD Merissa Chaudhary Work Phone: [facility] Work Phone: Start: 02-25-2023 End: 02-25-2023 Departed Referred MD Merissa Chaudhary Work Phone: [facility] Work Phone: Start: 02-11-2023 End: 02-11-2023 ambulatory Merissa Chaudhary Other [employer] Other Start: 02-11-2023 Telephone encounter Merissa Chaudhary [facility] Start: 12-27-2022 End: 12-27-2022 ambulatory Merissa Chaudhary Other [employer] Other Start: 12-27-2022 Office outpatient vi sit 25 minutes Merissa Chaudhary [facility] Start: 12-25-2022 End: 12-25-2022 ambulatory Merissa Chaudhary Other [employer] Other Start: 12-25-2022 Telephone encounter Merissa Chaudhary [facility] Start: 12-24-2022 End: 12-24-2022 ambulatory Merissa Chaudhary Facility:[facility] Start: 12-24-2022 End: 12-24-2022 Evaluation and management of inpatient MD Merissa Chaudhary Work Phone: [facility] Work Phone: Start: 12-24-2022 End: 12-24-2022 observation encounter MD Merissa Chaudhary Work Phone: [facility] Work Phone: Start: 12-20-2022 End: 12-20-2022 ambulatory Merissa Chaudhary Other [employer] Other Start: 12-20-2022 Telephone encounter Merissa Chaudhary [facility] Start: 11-15-2022 End: 11-15-2022 ambulatory Merissa Chaudhary Other [employer] Other Start: 11-15-2022 Office outpatient vi sit 15 minutes Merissa Chaudhary [facility] Start: 11-11-2022 End: 11-11-2022 ambulatory MILAGRO MANN [facility] Start: 09-12-2022 End: 09-12-2022 ambulatory Merissa Chaudhary Other [employer] Other Start: 09-12-2022 Office outpatient vi sit 25 minutes Merissa Chaudhary [facility] Start: 09-12-2022 Telephone encounter Merissa Chaudhary [facility] Start: 09-11-2022 End: 09-11-2022 ambulatory JENNIFER ALARCON [facility] Start: 07-04-2022 End: 07-04-2022 ambulatory Merissa Chaudhary Other [employer] Other Start: 07-04-2022 Telephone encounter Merissa Chaudhary [facility] Start: 06-18-2022 End: 06-18-2022 ambulatory Virgilio Mckeon Other [employer] Other Start: 06-18-2022 Telephone encounter Virgilio Mckeon [facility] Start: 05-30-2022 End: 05-30-2022 ambulatory Merissa Chaudhary Other [employer] Other Start: 05-30-2022 Telephone encounter Merissa Chaudhary [facility] Start: 05-27-2022 End: 05-28-[address] DOCTOR VERAS Facility:[facility] Start: 04-29-2022 End: 04-29-2022 ambulatory Merissa Chaudhary Other [employer] Other Start: 04-29-2022 Office outpatient vi sit 15 minutes Merissa Chaudhary [facility] Start: 04-29-2022 Telephone encounter Merissa Chaudhary [facility] Start: 02-11-2022 ambulatory Facility:[id number] Start: 02-11-2022 End: 02-11-2022 Patient encounter procedure Yany Cuellar [facility] Start: 01-07-2022 End: 01-26-2022 Pre-admission assessment Yany Parrishos [facility] Start: 11-20-2021 Adult health examination Merissa Chaudhary Other [employer] Other Start: 11-20-2021 Encounter for genera l adult medical examination without abnormal findings DR DOCTOR VERAS [facility] Start: 11-19-2021 End: 11-20-2021 ambulatory MERISSA CHAUDHARY Facility:[facility] Start: 11-19-2021 End: 11-20-2021 Encounter for general adult medical examination without abnormal findings DR DOCTOR VERAS Facility:H1 Start: 07-18-2021 End: 07-19-[address] DOCTOR VERAS Facility:[facility] Start: 07-07-2020 End: 07-07-2020 Patient encounter procedure Merissa Chaudhary Work Phone: -MRI [facility] [place] Procedures Date Procedure Procedure Detail Performing Clinician Start: 07-07-2020 MRI of head Merissa cuba Work Phone: Plan of Treatment Date Care Activity Detail Author Start: 07-08-2023 [facility] Start: 12-24-2022 [facility] Start: 12-24-2022 Hospital admission [facility] Start: 12-24-2022 [facility] Start: 12-24-2022 Sleep disorder assessment [facility] 25-hydroxyvitamin D2 [Mass/volume] in Serum or Plasma [facility] 25-hydroxyvitamin D3 [Mass/volume] in Serum or Plasma [facility] 25-Hydroxyvitamin D3+25-Hydroxyvitamin D2 [Mass/volume] in Serum or Plasma [facility] Patient referral [facility] Work Phone: Thyrotropin [Units/v olume] in Serum or Plasma [facility] Thyroxine (T4) free index in Serum or Plasma by calculation [facility] Thyroxine measurement [facility] Triiodothyronine (T3 ) [Mass/volume] in Serum or Plasma [facility] Triiodothyronine res in uptake (T3RU) in Serum or Plasma [facility] Payers Date Payer Category Payer Self-pay [id number] 1960 Unknown [id number] 2.16. [id number] 1960 Unknown [id number] 2.16.84 0.1.678308.3.579.2.593 1960 Unknown [id number] 2.16.84 0.1.086120.3.579.2.593 1960 Unknown [id number] 2.16.84 0.1.404445.3.579.2.593 1960 Unknown [id number] 2.16.84 0.1.623987.3.579.2.593 1961 Unknown [id number] 2.16.84 0.1.959040.3.579.2.1259 1960 Unknown [id number] 2.16.84 0.1.751256.3.579.2.1259 1961 Unknown [id number] 2.16.84 0.1.051614.3.579.2.1259 1961 Unknown [id number] 2.16.84 0.1.542445.3.579.2.1259 1960 Unknown [id number] 2.16.8 40.1.174633.3.579.2.727 1961 Unknown [id number] 2.16.8 40.1.342772.3.579.2.727 1959 Unknown [id number] Private Health Insurance [id number] Unknown [id number] Unknown [id number] 2.16.8 40.1.567440.3.579.2.531 Unknown [id number] 2.16.8 40.1.850007.3.579.2.531 Unknown [id number] 2.16.8 40.1.383482.3.579.2.531 Social History Date Type Detail [facility] Start: 1960 Sex Assigned At Female F [facility] Tobacco smoking status No Smokin g Status Entered [facility] Sex Assigned At Female [facility] Start: 12-24-2022 End: 12-24-2022 Tobacco smoking status NHIS Current some day smoker [facility] Start: 12-27-2022 End: 12-27-2022 Tobacco smoking status NHIS Smoker (finding) [facility] Goals Date Patient Goal Desired Activity /State Functional Status Date Assessment Result Facility 12-24-2022 Functional status Patient at Baseline [facility] Work Phone: Mental Status Date Assessment Result Facility 12-24-2022 Cognitive function Cognitive Sta tus Patient at Baseline [facility] Work Phone: Clinical Notes 04-29-2022 to 06-13-2023 Note Date & Type Note Facility 06-13-2023 Note [facility] CARDIOLOGY PROGR ESS NOTE HPI: Nicolas Harris is a 62 y.o. female here for POTS, HTN, Pulm HTN, current smoker HPI 61 yo female presented to clinic for routine f/U. Patient here for 6 mo follow up pulmonary hypertension, SVT, and POTS. Had echo last week. Says since beginning of Dec 2022 she has felt good and hasn't had dizziness/lightheadedness. Usha Mann started her on midodrine in Oct 2022 but she took it for about 1 week and stopped. Said her BP was in the 150's/90's and she did not feel well on it. Denies chest pain, SOB, and palpitations. No lower extremity edema, orthopnea, or PND. Review of Systems 10 point ROS is performed and is negative unless otherwise specified in HPI Visit Vitals BP 151/78 (BP Location: Left arm, Patient Position: Sitting) Pulse 54 Ht 1.6 m (5' 3 ) Wt 108 kg (239 lb) SpO2 98% BMI 42.34 kg/m??? OB Status Unknown Smoking Status Every Day BSA 2.19 m??? Allergies Allergen Reactions Codeine Other Metoclopramide Hcl Other Sulfa (Sulfonamide Antibiotics) Other Medications: Current Outpatient Medications on File Prior to Visit Medication Sig Dispense Refill busPIRone (Buspar) 10 mg tablet hydroxychloroquine (Plaquenil) 200 mg tablet Take 1 tablet by mouth in the morning and at bedtime. lamoTRIgine (LaMICtal) 150 mg tablet Take 1 tablet by mouth in the morning. metoprolol succinate XL (Toprol-XL) 50 mg 24 hr tablet Take 1 tablet (50 mg) by mouth once daily as directed. 90 tablet 3 omeprazole (PriLOSEC) [address] capsule if needed each day. pyridostigmine (Mestinon) 60 mg tablet Take 2 tablets (120 mg) by mouth in the morning, at noon, in the evening, and at bedtime. 720 tablet 3 rivaroxaban (Xarelto) 20 mg tablet Take 1 tablet every day by oral route for 90 days. SITagliptin phosphate (Januvia) 100 mg tablet Take 1 tablet every day by oral route for 90 days. traZODone (Desyrel) 50 mg tablet Take 50 mg by mouth at bedtime. venlafaxine XR (Effoxor-XR) 150 mg 24 hr capsule Take 2 capsules by mouth in the morning. midodrine (Proamatine) 2.5 mg tablet Take 1 tablet (2.5 mg) by mouth in the morning, at noon, and at bedtime. Every morning, noon and dinner time. Do no lie flat for 4 hours after dose (Patient not taking: Reported on 06/13/2023) 270 tablet 3 No current facility-administered medications on file prior [...] cardiac function and rt sided pressures Dyspnea Denies any dyspnea Emphasized importance of smoking cessation POTS (postural orthostatic tachycardia syndrome) Denies symptoms Continue pyridostigmine to 120 mg qid, continue adequate hydration, additional salt to diet. Monitor b/p and SBP 140-150 is ok with known POTS. Was not able to tolerate midodrine Supraventricular tachycardia (CMS/HCC) Stable- continue toprol -Optimize medical management -Aggressive risk factor modification -Plan of care discussed with patient. All questions were ans (more content not included)... [facility] 02-11-2023 Evaluation note Encounter Date Diagnosis Assessment Notes Jan, Acute pain of right hip (ICD-10 - M25.551) [employer] Other 10-06-2023 Evaluation note* Encounter Date Diagnosis [...] monitor results and followup in 3-4 weeks. [employer] Other 10-04-2023 Evaluation note* Encounter Date Diagnosis Assessment Notes Treatment Notes Treatment Clinical Notes Dec, Depressive disorder (ICD-10 - F32.A) [facility] [employer] Other 10-03-2023 History and physical note Author Froilan Brown [facility] December 24, 2022 4:06am Note Date/Time December 24, 2022 3: 58am [facility] [address] [place] [address] Hospitalist H&P Signed Patient: Nicolas Harris MR#: [id number] : 1960 Acct:[id number] Age/Sex: 62 / F Adm Date: 3 Loc: Room: [address] [place] [address] Type: ADM IN Attending Dr: Froilan Brown MD Copies to: MD Merissa Mosquera MD~ HPI DATE OF EXAMINATION: 12/24/22 CHIEF COMPLAINT: fall HISTORY OF PRESENT ILLNESS: The patient is a 62 year old woman with a history of HTN, DVT/PE on xarelto, POTS, NIDDM2, paroxysmal SVT who presented to [place] ED after a fall. Per the patient [...] got up from sleeping to walk [facility] and fell- pt reports she felt wobbly after taking the flexeril. shedid not lose consciousness or feel dizzy and denies any chest pain or shortness of breath. Pt's right hip pain worsened over the course of Friday so she went to [place] ER for evaluation on arrival there vital [...] feels improved after she got tylenol at [facility]- the patient is somewhat irritated at being [...] were negative except as noted in the [facility] Medical History Apnea Arthritis Back pain [...] thrombosis): (5) Hyponatremia: Plan: mild (126 at [place])- ?medication related Plan - admit to medicine - monitor on telemetry - restart home medications - will check STAT troponin now. if it is markedly increased compared to at [facility], would ask cardiology to see pt. if [...] 1 Documented By: Froilan Brown MD 12/24/22 0350 Signed By: <Electronically signed by Froilan Brown MD> 12/24/22 9048 [facility] Work Phone: 1(294) 444-594609-29-2023 Evaluation note* Encounter Date Diagnosis Assessment Notes Treatment Notes Treatment Clinical Notes Nov, Depressive disorder (ICD-10 - F32.A) [employer] Other 08-25-2023 Evaluation note* Encounter Date Diagnosis Assessment Notes Treatment Notes Treatment Clinical Notes Oct, Depressive disorder (ICD-10 - F32.A) Mood improved. 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 Thirties and 40's healthy. 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 Head injury 1986, metal box hit on [...] dehydration. Improved with seated and resting. 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 Worse with walking and when I [...] ANS. Our research (Justus et. al, 2019 JAHA) and others have identified autoantibodies to autonomic [...] syndrome POTS/ orthostatic intolerance OI) which developed [id number] infection. We postulate that these patients possess similar autoantibodies to autonomic receptors. Likely these Covid long haulers develop an inflammatory/autoimmune response that effects the ANS. Neurogenic orthostatic hypotensio (more content not included)...[facility]06-22-2023 Evaluation note* Encounter Date Diagnosis Assessment Notes [...] the past (years ago). Requests a refill. 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 Will increase pyridostigmine to 120 mg qid, continue adequate hydration, additional salt to diet. 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 Will increase pyridostigmine to 120 mg qid, continue adequate hydration, additional salt to diet. Monitor b/p and SBP 140-150 is ok with known POTS. Supraventricular tachycardia (CMS/HCC) Stable- continue toprol F/U with neurocardiogenic clinic for further management of POTS symptoms [facility]06-21-2023 NoteContinued LOPEZ will repeat echocardiogram to assess rt sided pressures, recommended pt to quit smoking.[facility]06-21-2023 NoteReports continued LOPEZ Will repeat echocardiogram to assess cardiac function and rt sided pressures [facility]06-21-2023 NoteHypertension is stable [facility]* Encounter Date Diagnosis Assessment Notes [...] ENT eval if area does not resolve. [employer] Other 02-06-2023 Evaluation note* Encounter Date Diagnosis Assessment Notes Treatment Notes Treatment Clinical Notes Apr, Lumbar pain (ICD-10 - M54.50) [facility] [employer] Other Evaluation + Plan note No data available for this section [facility] Future Appointments Appointment Date:06/04/2023 01:30:00 PM Scheduled Provider: Location:[facility] Appointment Type:DM Diabetes Initial line walker 61 (F [facility] Assessments Information Available [facility] noteNo InformationNort [employer] Other Evaluation note* Diagnosis Onset Date Resolution Status Elevated troponin acute Fall acute Hyponatremia acute Personal history of DVT (deep vein thrombosis) acute Right hip pain acute [facility] Work Phone: Evaluation noteNo assessment information available [facility] Work Phone: Evaluation note* Diagnosis Onset Date Resolution Status Anxiety acute Bilateral primary osteoarthritis of knee acute Depression acute Right hip pain acute [facility] Work Phone: Evaluation note* Diagnosis Onset Date Resolution Status Abnormal TSH acute Arthritis, rheumatoid acute Lower extremity edema acute Urinary frequency acute [facility] Work Phone: Histowd general Narrative - Reported* Type Description Date [...] rele ase 02/2022 Hospitalization History see above [employer] Other [facility] general Narrative - Reported* Type Description Date [...] rele ase 02/2022 Hospitalization History see above [employer] Other Hospital Discharge instructions No data available for this section [facility] No data available for this section [facility] Author Petr Kowalski [facility] December 24, 2022 11:58am Note Date/Time December 24, 2022 11 :58am [facility] [address] [place] [address] Hospitalist Progress Note Signed Patient: Nicolas Harris MR#: [id number] : 1960 Acct:[id number] Age/Sex: 62 / F Adm Date: 3 Loc: Room: [address] [place] [address] Type: ADM INOo Attending Dr: Petr Kowalski MD Copies to: ~ Date of Service: 12/24/2022 Subjective Subjective Narrative: The patient is a 62 year old woman with a history of HTN, DVT/PE on xarelto, POTS, NIDDM2, paroxysmal SVT who presented to [place] ED after a fall. Per the patient [...] got up from sleeping to walk to [facility] and fell- pt reports she felt wobbly after taking the flexeril. shedid not lose consciousness or feel dizzy and denies any chest pain or shortness of breath. Pt's right hip pain worsened over the course of Friday so she went to [place] ER for evaluation On arrival there vital [...] feels improved after she got Tylenol at [facility]- the patient is somewhat irritated at being [...] to the fall. Her CT head at [place] was unremarkable for ICH patient remained stable [...] 08:59 50 mg DAILY SANAZ Administration Pyridostigmine Zeigler 120 mg 12/24/22 09:00 12/24/22 08:36 Pyridostigmine Zeigler 60 Mg Tablet PO 12/24/23 08:59 120 [...] thrombosis): (5) Hyponatremia: Plan: mild (126 at [place])- ?medication related Plan -Repeat Troponin here WNL. Sodium level WNL -CT head done at [place] with no evidence of intracranial bleed. Patient remained stable with no focal deficits -X-ray of the hip done at [place] with no evidence of fracture dislocation -Patient [...] <Electronically signed by Petr Kowalski MD> 12/24/22 0835 [facility] Work Phone: Summary Purpose Family History No [...] hip pain Chief Complaint Screening mental\physical health Chief Complaint mental\physical heal th F39 F41.9 G47.00 Z79.899 Reason for Visit Anxiety Bilateral primary osteoarthritis of knee Depression Right hip pain Chief Complaint F39 F41.9 G47.00 Z79 .899 Amb Documentation weight gain, swelling hand and feet Reason for Visit Abnormal TSH Arthritis, rheumatoid Lower extremity edema Urinary frequency Additional Source Comments INFORMATION SOURCE (unrecogn ized section and content) DATE CREATED AUTHOR 08/29/2018 [facility] DATE CREATED AUTHOR AUTHOR'S ORGANIZ ATION 03/20/2022 [facility] [place] DATE CREATED AUTHOR AUTHOR'S ORGANIZ ATION 05/29/2022 [facility] DATE CREATED AUTHOR AUTHOR'S ORGANIZ ATION 06/05/2023 [facility] EPIC DATE CREATED AUTHOR AUTHOR'S ORGANIZ ATION 07/18/2023 [facility] DATE CREATED AUTHOR AUTHOR'S ORGANIZ ATION 08/27/2023 [facility] DATE CREATED AUTHOR AUTHOR'S ORGANIZ ATION 08/29/2023 [facility] Patient Care team informatio n (unrecognized section and content) Team Status: Active Member Role Status Dates Merissa Chaudhary MD Primary Care Provider Active Team Status: Inactive Member Role Status Dates Merissa Chaudhary MD Primary Care Provider Active Froilan Brown MD Admit Provider Active Petr Kowalski MD Attending Provider Active Team Status: Inactive Member Role Status Dates Merisas Chaudhary MD Primary Care Provider Active [facility] Attending Provider Active Team Status: Inactive Member Role Status Dates Merissa Chaudhary MD Primary Care Provider Active Start: February 25, 2023 End: February 25, 2023 [employer] Attending Provider Active Sta rt: February 25, 2023 End: February 25, 2023 Team Status: Inactive Member Role Status Dates Merissa Chaudhary MD Primary Care Provide r, Attending Provider Active Start: May 08, 2023 End: May 08, 2023 Team Status: Inactive Member Role Status Dates Merissa Chaudhary MD Primary Care Provider Active Start: July 08, 2023 End: July 08, 2023 NIRANJAN Land Attending Provider Active Start: July 08, 2023 End: July 08, 2023 Team Status: Active Member Role Status Dates Merissa Chaudhary MD Primary Care Provider Active Start: July 10, 2023 ANASTASIA Mir Attending Provider Active Start : July 10, 2023 Team Status: Inactive Member Role Status Dates Merissa Chaudhary MD Primary Care Provide r, Attending Provider Active Start: August 19, 2023 End: August 19, 2023 REASON FOR VISIT (unrecogniz ed section [...] BE BASED ON THE PRIMARY CLINICAL RECORDS. [employer] provides no warranty or guarantee of the accuracy or completeness of information in this document.
--- NOTE | 2023-09-07 01:41 | ED.FALL1 ---
HPI HPI - Fall General Chief Complaint: Fall Stated Complaint: FALL/C Time Seen by Provider: 09/07/23 01:34 Source: patient Mode of arrival: walk-in Limitations: no limitations History of Present Illness HPI Narrative: states she believes she tripped on a chair leg at work and fell with her elbow into her right chest. Has right sided rib pain. not short of breath. Presents for xray of her ribs. Denies striking her head. no neck pain, abdominal pain, hip pain or lower extremity pain. no nausea or dizziness Related Data Home Medications ?Medication ?Instructions ?Recorded ?Confirmed hydroxychloroquine 200 mg tablet 200 mg PO DAILY 12/24/22 09/07/23 lamotrigine 150 mg tablet 200 mg PO DAILY 12/24/22 09/07/23 metoprolol succinate 50 mg 50 mg PO DAILY 12/24/22 09/07/23 tablet,extended release 24 hr pyridostigmine bromide 60 mg tablet 60 mg PO DAILY 12/24/22 09/07/23 rivaroxaban 20 mg tablet (Xarelto) 20 mg PO DAILY 12/24/22 09/07/23 sitagliptin phosphate 100 mg 100 mg PO DAILY 12/24/22 09/07/23 tablet (Januvia) tramadol 50 mg tablet 50 mg PO DAILY 12/24/22 09/07/23 venlafaxine 150 mg 150 mg PO DAILY 12/24/22 09/07/23 capsule,extended release 24 hr cariprazine 1.5 mg capsule 3 mg PO Q24H 09/07/23 09/07/23 (Vraylar) cholecalciferol (vitamin D3) 1,250 50,000 unit PO DAILY 09/07/23 09/07/23 mcg (50,000 unit) capsule levothyroxine 50 mcg tablet 50 mcg PO DAILY 09/07/23 09/07/23 mirtazapine 15 mg tablet 15 mg PO BEDTIME 09/07/23 09/07/23 Allergies Allergy/AdvReac Type Severity Reaction Status Date / Time Sulfa (Sulfonamide Allergy Intermediate Verified 09/07/23 01:31 Antibiotics) Opioid HPI Opioid Management Most Recent Pain and Opioid Data: Last Pain Scale 7 09/07/23 03:37 Last ED Pain Assessment 09/07/23 03:37 Last MAR Pain Assessment 09/07/23 03:31 Review of Systems ROS Status of ROS 10 or more systems reviewed and unremarkable except as noted in history and below Exam Constitutional Vital Signs, click to edit/add: Last Vital Signs Temp 98 F 09/07/23 01:31 Pulse 58 L 09/07/23 03:39 Resp 18 09/07/23 03:39 BP 151/78 H 09/07/23 03:39 Pulse Ox 98 09/07/23 03:39 O2 Del Method Room Air 09/07/23 03:39 Common normals: no apparent distress, average body habitus, oriented x3, no limitations, healthy appearing, alert and well nourished [facility] Common normals: normocephalic and head/scalp atraumatic Chest Other: mild right sided chest wall tenderness GI Common normals: Normal to inspection, nondistended, normoactive bowel sounds present, soft to palpation and non-tender Extremity Common normals: normal to inspection and full ROM Neuro Common normals: oriented x3, CN's II-XII intact bilaterally, moves all extremities and no focal motor deficits Psych Appearance: grossly normal Course Vital Signs Vital signs: Vital Signs Temperature 98 F 09/07/23 01:31 Pulse Rate 90 09/07/23 01:31 Respiratory Rate 18 09/07/23 01:31 Blood Pressure 178/86 H 09/07/23 01:31 Pulse Oximetry 100 09/07/23 01:31 Oxygen Delivery Method Room Air 09/07/23 01:31 Temperature 98 F 09/07/23 01:31 Pulse Rate 58 L 09/07/23 03:39 Respiratory Rate 18 09/07/23 03:39 Blood Pressure 151/78 H 09/07/23 03:39 Pulse Oximetry 98 09/07/23 03:39 Oxygen Delivery Method Room Air 09/07/23 03:39 MDM - Fall MDM Narrative Medical decision making narrative: patient fell at work sustaining minor bruise to the right chest wall ribs. mild tenderness of palpation . CT without rib fracture. Patient informed of the above and discharged home Lab Data Labs: Lab Results 09/07/23 Range/Units 02:04 WBC 6.3 (4.0-11.0) 10^3/uL RBC 4.30 (4.20-5.40) 10^6/uL Hgb 13.3 (12.0-16.0) g/dL Hct 38.5 (36.0-48.0) % MCV 89.5 (81.0-99.0) fL MCH 30.9 (26.7-34.0) pg MCHC 34.5 (29.9-35.2) g/dL RDW 12.2 (11.0-15.0) % Plt Count 233 (150-450) 10^3/uL MPV 8.6 L (9.5-13.5) fL Neut % (Auto) 69.7 (43.0-75.0) % Lymph % (Auto) 22.4 (20.5-60.0) % [place] % (Auto) 6.6 (1.7-12.0) % Eos % (Auto) 0.0 L (0.9-7.0) % Baso % (Auto) 1.0 (0.2-2.0) % Neut # (Auto) 4.4 (1.4-6.5) 10^3/uL Lymph # (Auto) 1.4 (1.2-3.8) 10^3/uL [place] # (Auto) 0.4 (0.3-0.8) 10^3/uL Eos # (Auto) 0.0 (0.0-0.7) 10^3/uL Baso # (Auto) 0.1 (0.0-0.1) 10^3/uL Abs Immat Gran (auto) 0.02 (0.00-0.03) 10^3/uL Imm/Tot Granulo (auto) 0.3 (0.0-0.5) % Sodium 130 L (136-145) mmol/L Potassium 4.2 (3.5-5.1) mmol/L Chloride 96 L (98-107) mmol/L Carbon Dioxide 31.7 (21.0-32.0) mmol/L Anion Gap 6.5 BUN 15.0 (7.0-18.0) mg/dL Creatinine 0.91 (0.55-1.02) mg/dL Est GFR ( Amer) >60 (>=60) Est GFR (Non-Af Amer) >60 (>=60) BUN/Creatinine Ratio 16.5 Glucose 108 H (74-106) mg/dL Calcium 8.9 (8.5-10.1) mg/dL Total Bilirubin 0.4 (0.2-1.0) mg/dL AST 16 (15-37) U/L ALT 19 (14-59) U/L Alkaline Phosphatase 84 (46-116) U/L Total Protein 7.2 (6.4-8.2) g/dL Albumin 3.6 (3.4-5.0) g/dL Globulin 3.6 g/dL Albumin/Globulin Ratio 1.0 Imaging Data Chest x-ray: Radiologist's impression: ITS Impressions Chest CT 09/07/23 01:45 IMPRESSION: 1. Allowing for exam limitations due to the lack of contrast, no acute traumatic change or other acute diagnostic abnormality is seen. 2. Severe coronary arterial calcifications. 3. Cholecystectomy. 4. Benign left adrenal adenoma. Electronically authenticated by: CHRISTI JAMES Date: 09/07/2023 03:34 Discharge Plan Discharge Stand Alone Forms: Portal Instructions Chief Complaint: Fall Clinical Impression: Bruised rib Patient Disposition: Home, Self-Care Prescriptions / Home Meds: No Action hydroxychloroquine 200 mg tablet 200 mg PO DAILY lamotrigine 150 mg tablet 200 mg PO DAILY metoprolol succinate 50 mg tablet extended release 24 hr 50 mg PO DAILY pyridostigmine bromide 60 mg tablet 60 mg PO DAILY Xarelto 20 mg tablet 20 mg PO DAILY Januvia 100 mg tablet 100 mg PO DAILY tramadol 50 mg tablet 50 mg PO DAILY venlafaxine 150 mg capsule,extended release 24hr 150 mg PO DAILY cholecalciferol (vitamin D3) 1,250 mcg (50,000 unit) capsule 50,000 unit PO DAILY Vraylar 1.5 mg capsule 3 mg PO Q24H levothyroxine 50 mcg tablet 50 mcg PO DAILY mirtazapine 15 mg tablet 15 mg PO BEDTIME Print Language: Khmer Instructions: Rib Contusion (ED) Referrals: Merissa Mayfield MD [Primary Care Provider] - 1 week Discharge Date/Time: 09/07/23 03:52
--- NOTE | 2023-09-07 01:45 | CT_ITS ---
The [address] [address] Patient Name: NICOLAS HARRIS MRN: [id number] date: 1960 Sex: F Assigned Patient Location: ER Current Patient Location: [facility] Accession/Order Number: [id number] Exam Date: 09/07/2023 01:54 Report Date: 09/07/2023 03:34 At the request of: FEROZ WOODY Procedure: CT chest wo con EXAMINATION: CT chest wo con, 09/07/2023 1:54 AM EDT HISTORY: rib cage injury right . Fall. COMPARISON: None. TECHNIQUE: CT scan of the chest was performed without IV contrast. Sagittal and coronal reconstructions are provided. CT dose reduction technique was used, including Automated Exposure Control. FINDINGS: The exam is limited by the lack of contrast. No mediastinal injury is seen. There are mild calcifications in the otherwise grossly unremarkable thoracic aorta and arch vessels. Prominent coronary arterial calcifications are noted. Cardiac size is normal. There is no pericardial effusion. The thyroid gland and esophagus appear unremarkable. There is linear fibrotic scarring at the left lung base. The lungs appear otherwise clear. Cholecystectomy clips are present. There is a benign left adrenal adenoma measuring 2.2 cm on image 100. The upper abdomen is otherwise unremarkable. An old healed right lateral rib fractures seen on image 40. There is a midthoracic dextroscoliosis with thoracic spine DISH. No acute osseous abnormality or suspicious bony lesion is seen. CORONARY ARTERIES: Coronary calcifications are heavy. CT/CT chest wo con IMPRESSION: 1. Allowing for exam limitations due to the lack of contrast, no acute traumatic change or other acute diagnostic abnormality is seen. 2. Severe coronary arterial calcifications. 3. Cholecystectomy. 4. Benign left adrenal adenoma. Electronically authenticated by: CHRISTI JAMES Date: 09/07/2023 03:34
[2023-09-07 02:10] LABS: Basophils Absolute Auto 0.1 10^3/uL (0.0-0.1); Hematocrit 38.5 % (36.0-48.0); Hemoglobin 13.3 g/dL (12.0-16.0); Immature Granulocytes Abs Auto 0.02 10^3/uL (0.00-0.03); Immature Granulocytes Pct Auto 0.3 % (0.0-0.5); Lymphocytes Absolute Auto 1.4 10^3/uL (1.2-3.8); Lymphocytes Percent Auto 22.4 % (20.5-60.0); Mean Corpuscular HGB Conc 34.5 g/dL (29.9-35.2); Mean Corpuscular Hemoglobin 30.9 pg (26.7-34.0); Mean Corpuscular Volume 89.5 fL (81.0-99.0); Mean Platelet Volume 8.6 fL (9.5-13.5); Monocytes Absolute Auto 0.4 10^3/uL (0.3-0.8); Monocytes Percent Auto 6.6 % (1.7-12.0); Neutrophils Absolute Auto 4.4 10^3/uL (1.4-6.5); Neutrophils Percent Auto 69.7 % (43.0-75.0); Platelet Count 233 10^3/uL (150-450); Red Cell Distribution Width 12.2 % (11.0-15.0); White Blood Count 6.3 10^3/uL (4.0-11.0)
[2023-09-07 02:26] LABS: Alanine Aminotransferase 19 U/L (14-59); Albumin Level 3.6 g/dL (3.4-5.0); Alkaline Phosphatase 84 U/L (46-116); Anion Gap 6.5; Aspartate Amino Transferase 16 U/L (15-37); BUN Creatinine Ratio 16.5; Bilirubin Total 0.4 mg/dL (0.2-1.0); Calcium 8.9 mg/dL (8.5-10.1); Carbon Dioxide 31.7 mmol/L (21.0-32.0); Chloride 96 mmol/L (98-107); Estimated GFR (African America >60 (>=60); Estimated GFR (Non-African Ame >60 (>=60); Globulin 3.6 g/dL; Glucose 108 mg/dL (74-106); Potassium 4.2 mmol/L (3.5-5.1); Sodium 130 mmol/L (136-145); Total Protein 7.2 g/dL (6.4-8.2)
[2023-09-07] MEDS: ACETAMINOPHEN 325 MG TABLET 650 MG PO (03:31)
[2023-09-07 03:39] VITALS: BP 151/78; PULSE 58; O2SAT 98
== END 2023-09-07 03:52 | disposition home or self-care (01) ==
PROVIDERS: Emergency Provider Internal Medicine; PCP Family Medicine
DX: S20.211A Contusion of right front wall of thorax, initial encounter (principal); W01.198A Fall on same level from slipping, tripping and stumbling with subsequent striking against other object, initial encounter
CPT/HCPCS: 36415; 71250; 80053; 85025; 99284

== ENCOUNTER 2024-05-10 14:02 | Inpatient (IN) | payer OTHER, SELFPAY ==
[2024-05-10] VITALS (16 sets, daily range): BP systolic 84–141; BP diastolic 37–104; PULSE 57–86; TEMP 36.6–37.1; O2SAT 91–99; BMI 53.3; BMI 50.0
--- NOTE | 2024-05-10 14:39 | ECG_ITS ---
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
--- NOTE | 2024-05-10 14:39 | XR_ITS ---
The [address] [address] Patient Name: NICOLAS HARRIS MRN: [id number] date: 1960 Sex: F Assigned Patient Location: ER Current Patient Location: ER Accession/Order Number: [id number] Exam Date: 05/10/2024 15:10 Report Date: 05/10/2024 16:05 At the request of: JUNIE MARTÍNEZ Procedure: XR chest 2V EXAM: XR chest 2V HISTORY: sob COMPARISON: Chest CT from 09/07/2023 FINDINGS: 2 view(s) of the chest. Blunting of the left costophrenic angle suggests a small left pleural effusion. There is also mild diffuse interstitial prominence. No pneumothorax. The cardiomediastinal silhouette is normal. Changes from prior CABG, and sternotomy. XR/XR chest 2V IMPRESSION: 1. Findings suggestive of a small left pleural effusion. 2. Mild diffuse interstitial prominence, an appearance that can be seen with pulmonary edema or small airways disease. Electronically authenticated by: LEDY FRIEDMAN Date: 05/10/2024 16:05
--- NOTE | 2024-05-10 14:55 | ED_ITS ---
HPI HPI - General Adult General Chief complaint: Shortness of Breath/Dyspnea Stated complaint: SOB CARDIAC SYMPTOMS Time Seen by Provider: 05/10/24 14:48 Source: patient Mode of arrival: Wheelchair Limitations: no limitations History of Present Illness HPI narrative: Patient is a 63-year-old female who is presenting to the ER with chief complaint of shortness of breath, cough, congestion. Patient has been short of breath for the past 1.5 weeks. Patient states that she has had a 10 pound weight gain in the past 1.5 weeks. Patient just had triple bypass surgery at [facility] in November of this last year. Patient's surgeon was Dr. Sarkar, patient's Dr Fernandes is patient's normal alarm signaler. Patient daughter is at bedside. Patient was coming into the hospital dropped papers off to her daughter, she was walking back out to the car. Patient became more short of breath so she came into the ER for evaluation. She has appointment with her alarm signaler tomorrow. Patient does take Xarelto. Patient had a 10 pound weight gain. No fevers. No productive cough. No abdominal pain, nausea, vomiting, or any other acute complaints. No unilateral swelling to lower extremities. Patient does take blood thinners. No fall. All systems are negative except as noted/marked. All systems reviewed and otherwise negative. Nurses note and vital signs reviewed and patient is not hypoxic. General: The patient appears well and in no apparent distress. Patient is resting comfortably on cart. Patient is not toxic, lethargic, or listless Skin: Warm, dry, no pallor noted. There is no rash noted. No petechiae, purpura. Head: Normocephalic, atraumatic Eye: Normal conjunctiva, no drainage, EOMI. PERRL Ears, Nose, Mouth, and Throat: oral mucosa is moist. Nares patent. Mouth without vesicles. Cardiovascular: Regular Rate and Rhythm, no murmur, gallop, rub Respiratory: Patient is in no distress, no accessory muscle use, lungs are clear to auscultation, no wheezing, rales or rhonchi. Patient's lungs are very clear bilateral, no wheezing, crackles, rales, equal breath sounds bilateral. Back: non-tender, no CVA tenderness bilaterally to percussion. No CT LS midline pain GI: Morbidly obese, no tenderness to palpation, no masses appreciated. No rebound, guarding, or rigidity noted. No distention Musculoskeletal: Patient has full range of motion of all of the extremities, no motor, sensory, or focal neurological deficits, patient has 3+ pitting edema to bilateral lower extremities, equal swelling, chronic skin changes secondary to venous stasis. No signs of open sores, weeping, or acute signs of infection. Neurological: A&O x4, normal speech Psychiatric: Cooperative Related Data Home Medications ?Medication ?Instructions ?Recorded ?Confirmed lamotrigine 150 mg tablet 200 mg PO DAILY 12/24/22 05/10/24 metoprolol succinate 50 mg 25 mg PO BID 12/24/22 05/10/24 tablet,extended release 24 hr pyridostigmine bromide 60 mg tablet 60 mg PO DAILY 12/24/22 05/10/24 rivaroxaban 20 mg tablet (Xarelto) 20 mg PO DAILY 12/24/22 05/10/24 sitagliptin phosphate 100 mg 100 mg PO DAILY 12/24/22 05/10/24 tablet (Januvia) venlafaxine 150 mg 300 mg PO DAILY 12/24/22 05/10/24 capsule,extended release 24 hr cariprazine 1.5 mg capsule 3 mg PO Q24H 09/07/23 05/10/24 (Vraylar) levothyroxine 50 mcg tablet 50 mcg PO DAILY 09/07/23 05/10/24 atorvastatin 40 mg tablet 40 mg PO DAILY 05/10/24 05/10/24 furosemide 40 mg tablet 40 mg PO DAILY 05/10/24 05/10/24 magnesium oxide 400 mg (241.3 mg 400 mg PO BID 05/10/24 05/10/24 magnesium) tablet spironolactone 25 mg tablet 12.5 mg PO DAILY 05/10/24 05/10/24 Allergies Allergy/AdvReac Type Severity Reaction Status Date / Time Sulfa (Sulfonamide Allergy Intermediate Verified 09/07/23 01:31 Antibiotics) Opioid HPI Opioid Management Most Recent Opioid Data: Last Pain Scale 7 09/07/23 03:37 09/07/23 PFSH PFSH Social History Little interest or pleasure in doing things: not at all Feeling down, depressed, or hopeless: not at all Exam Constitutional Vital Signs, click to edit/add: Last Vital Signs Temp 97.8 F 05/10/24 14:11 Pulse 60 05/10/24 17:32 Resp 20 05/10/24 17:32 BP 141/70 05/10/24 17:32 Pulse Ox 99 05/10/24 17:32 O2 Del Method Room Air 05/10/24 17:32 Course Vital Signs Vital signs: Vital Signs Pulse Oximetry 94 L 05/10/24 14:10 Temperature 97.8 F 05/10/24 14:11 Pulse Rate 60 05/10/24 17:32 Respiratory Rate 20 05/10/24 17:32 Blood Pressure 141/70 05/10/24 17:32 Pulse Oximetry 99 05/10/24 17:32 Oxygen Delivery Method Room Air 05/10/24 17:32 Medical Decision Making MDM Narrative Medical decision making narrative: EKG shows no acute changes. Patient's initial troponin was 184. Second troponin is 215. Patient EKG shows no acute changes. Patient's cardiology group is with [facility]. Patient was given 40 mg of Lasix IV. 1600 nobody is in the specialty clinic at [facility] cardiology to speak to them. I have called called cardiology to speak to. [address] did speak to Dr. Leija from cardiology. He is from [facility]. He is not familiar with the patient. We discussed patient's elevated troponins of 184 and 214. We discussed patient's BNP of 1100. We discussed her Xarelto. It is recommended that patient stay in the hospital overnight to monitor, also cycle EKGs and cardiac enzymes. No other recommendations besides diuresing. This could be demand ischemia. Patient was given a dose of IV Lasix 40 mg in the ER. Patient initially wanted to go home, but understands and agrees to admission. Daughter has been at bedside. 1715 I have spoken to Dr. Reid, he agrees with admission process. He is aware of my discussion about this patient with Dr Leija. He agrees to admission. Patient had no chest pain, tightness or discomfort. Patient agrees to admission for observation. Patient will be admitted to the intensive care unit and is stepdown status. Patient has an outpatient appointment tomorrow at the outpatient specialty clinic with [facility] at [facility]. Patient had 2 different troponins checked, there were 184 and 214. Patient is on Xarelto. Lab Data Labs: Lab Results 05/10/24 05/10/24 Range/Units 14:45 15:49 WBC 8.2 (4.0-11.0) 10^3/uL RBC 4.70 (4.20-5.40) 10^6/uL Hgb 13.9 (12.0-16.0) g/dL Hct 41.9 (36.0-48.0) % MCV 89.1 (81.0-99.0) fL MCH 29.6 (26.7-34.0) pg MCHC 33.2 (29.9-35.2) g/dL RDW 13.7 (11.0-15.0) % Plt Count 256 (150-450) 10^3/uL MPV 9.7 (9.5-13.5) fL Neut % (Auto) 71.7 (43.0-75.0) % Lymph % (Auto) 17.0 L (20.5-60.0) % [place] % (Auto) 4.7 (1.7-12.0) % Eos % (Auto) 5.2 (0.9-7.0) % Baso % (Auto) 1.0 (0.2-2.0) % Neut # (Auto) 5.9 (1.4-6.5) 10^3/uL Lymph # (Auto) 1.4 (1.2-3.8) 10^3/uL [place] # (Auto) 0.4 (0.3-0.8) 10^3/uL Eos # (Auto) 0.4 (0.0-0.7) 10^3/uL Baso # (Auto) 0.1 (0.0-0.1) 10^3/uL Abs Immat Gran (auto) 0.03 (0.00-0.03) 10^3/uL Imm/Tot Granulo (auto) 0.4 (0.0-0.5) % Sodium 138 (136-145) mmol/L Potassium 4.4 (3.5-5.1) mmol/L Chloride 102 (98-107) mmol/L Carbon Dioxide 29.0 (21.0-32.0) mmol/L Anion Gap 11.4 BUN 14.0 (7.0-18.0) mg/dL Creatinine 1.17 H (0.55-1.02) mg/dL Est GFR ( Amer) 57 L (>=60 mL/min/1.73m^2) Est GFR (Non-Af Amer) 47 L (>=60 mL/min/1.73m^2) BUN/Creatinine Ratio 12.0 Glucose 142 H (74-106) mg/dL Calcium 9.3 (8.5-10.1) mg/dL Total Bilirubin 0.5 (0.2-1.0) mg/dL AST 22 (15-37) U/L ALT 21 (14-59) U/L Alkaline Phosphatase 144 H (46-116) U/L Troponin I High Sens 184.7 H* 214.6 H* (4.0-51.3) pg/mL NT-Pro-B Natriuret Pep 1140.0 H (<=900.0) pg/mL Total Protein 7.4 (6.4-8.2) g/dL Albumin 3.5 (3.4-5.0) g/dL Globulin 3.9 g/dL Albumin/Globulin Ratio 0.9 ECG Data Attestation: I personally reviewed and interpreted this ECG as follows: (EKG interpretation. Normal sinus rhythm at 94 beats a minute. Normal axis deviation. Artifact noted. QTc of 406. EKG reading incomplete right bundle branch block.) Discharge Plan Discharge Chief Complaint: Shortness of Breath/Dyspnea Clinical Impression: Dyspnea, Elevated troponin Patient Disposition: Admitted as Observation Time of Disposition Decision: 17:00 Condition: Fair
[2024-05-10 15:00] LABS: Basophils Absolute Auto 0.1 10^3/uL (0.0-0.1); Eosinophils Absolute Auto 0.4 10^3/uL (0.0-0.7); Eosinophils Percent Auto 5.2 % (0.9-7.0); Hematocrit 41.9 % (36.0-48.0); Hemoglobin 13.9 g/dL (12.0-16.0); Immature Granulocytes Abs Auto 0.03 10^3/uL (0.00-0.03); Immature Granulocytes Pct Auto 0.4 % (0.0-0.5); Lymphocytes Absolute Auto 1.4 10^3/uL (1.2-3.8); Mean Corpuscular HGB Conc 33.2 g/dL (29.9-35.2); Mean Corpuscular Hemoglobin 29.6 pg (26.7-34.0); Mean Corpuscular Volume 89.1 fL (81.0-99.0); Mean Platelet Volume 9.7 fL (9.5-13.5); Monocytes Absolute Auto 0.4 10^3/uL (0.3-0.8); Monocytes Percent Auto 4.7 % (1.7-12.0); Neutrophils Absolute Auto 5.9 10^3/uL (1.4-6.5); Neutrophils Percent Auto 71.7 % (43.0-75.0); Platelet Count 256 10^3/uL (150-450); Red Cell Distribution Width 13.7 % (11.0-15.0); White Blood Count 8.2 10^3/uL (4.0-11.0)
[2024-05-10 15:23] LABS: Alanine Aminotransferase 21 U/L (14-59); Albumin Globulin Ratio 0.9; Albumin Level 3.5 g/dL (3.4-5.0); Alkaline Phosphatase 144 U/L (46-116); Anion Gap 11.4; Aspartate Amino Transferase 22 U/L (15-37); Bilirubin Total 0.5 mg/dL (0.2-1.0); Calcium 9.3 mg/dL (8.5-10.1); Chloride 102 mmol/L (98-107); Estimated GFR (African America 57 (>=60 mL/min/1.73m^2); Estimated GFR (Non-African Ame 47 (>=60 mL/min/1.73m^2); Globulin 3.9 g/dL; Glucose 142 mg/dL (74-106); Potassium 4.4 mmol/L (3.5-5.1); Sodium 138 mmol/L (136-145); Total Protein 7.4 g/dL (6.4-8.2)
[2024-05-10 15:24] LABS: Troponin I High Sensitivity 184.7 pg/mL (4.0-51.3)
[2024-05-10 16:12] LABS: Troponin I High Sensitivity 214.6 pg/mL (4.0-51.3)
[2024-05-10] MEDS: FUROSEMIDE 40 MG/4 ML VIAL IVP (16:41)
[2024-05-10] MEDS: ASPIRIN 81 MG TAB.CHEW 162 MG PO (18:05)
[2024-05-10 21:06] LABS: Troponin I High Sensitivity 641.2 pg/mL (4.0-51.3)
[2024-05-10] MEDS: MAGNESIUM OXIDE 400 MG TABLET PO (21:22)
[2024-05-11] VITALS (24 sets, daily range): BP systolic 95–141; BP diastolic 60–87; PULSE 60–129; TEMP 36.4–36.9; O2SAT 95–98
[2024-05-11 05:35] LABS: Basophils Absolute Auto 0.1 10^3/uL (0.0-0.1); Eosinophils Absolute Auto 0.4 10^3/uL (0.0-0.7); Eosinophils Percent Auto 5.3 % (0.9-7.0); Hematocrit 39.9 % (36.0-48.0); Hemoglobin 13.2 g/dL (12.0-16.0); Immature Granulocytes Abs Auto 0.02 10^3/uL (0.00-0.03); Immature Granulocytes Pct Auto 0.3 % (0.0-0.5); Lymphocytes Percent Auto 28.7 % (20.5-60.0); Mean Corpuscular HGB Conc 33.1 g/dL (29.9-35.2); Mean Corpuscular Hemoglobin 29.3 pg (26.7-34.0); Mean Corpuscular Volume 88.5 fL (81.0-99.0); Mean Platelet Volume 9.9 fL (9.5-13.5); Monocytes Absolute Auto 0.4 10^3/uL (0.3-0.8); Monocytes Percent Auto 5.7 % (1.7-12.0); Neutrophils Absolute Auto 4.1 10^3/uL (1.4-6.5); Platelet Count 226 10^3/uL (150-450); Red Blood Count 4.51 10^6/uL (4.20-5.40); Red Cell Distribution Width 13.8 % (11.0-15.0)
[2024-05-11 05:48] LABS: Anion Gap 9.7; BUN Creatinine Ratio 12.8; Calcium 9.2 mg/dL (8.5-10.1); Chloride 103 mmol/L (98-107); Estimated GFR (African America 57 (>=60 mL/min/1.73m^2); Estimated GFR (Non-African Ame 47 (>=60 mL/min/1.73m^2); Glucose 127 mg/dL (74-106); Potassium 3.7 mmol/L (3.5-5.1); Sodium 139 mmol/L (136-145)
[2024-05-11 05:50] LABS: Troponin I High Sensitivity 1034.6 pg/mL (4.0-51.3)
--- NOTE | 2024-05-11 06:43 | CA_ITS ---
Patient Name: NICOLAS HARRIS MR#: [id number] : 1960 Exam Date: 05/11/2024 Ordering Doctor: Shaikh Luke Sosa . ECHOCARDIOGRAM REPORT PROCEDURE: CA ECHO DOPPLER COMPLETE INDICATIONS: CHF COMPARISON: None. DESCRIPTION: COMPLETE ECHOCARDIOGRAM Real-time transthoracic echocardiography with 2D, M-mode, spectral and color flow Doppler performed. QUALITY: Technical quality was adequate. LEFT VENTRICLE: Normal chamber size. Mild concentric left ventricular hypertrophy. LV EF: Global left ventricular systolic function is normal. Calculated left ventricular ejection fraction is 63%. No significant wall motion abnormalities. DIASTOLIC: Normal diastolic function. ATRIAL SEPTUM: Inadequately seen. LEFT ATRIUM: Normal chamber size. RIGHT ATRIUM: Normal chamber size. RIGHT VENTRICLE: Normal chamber size. Normal right ventricular systolic function. TRICUSPID VALVE: Normal mobility and thickness. No stenosis with trivial regurgitation. No evidence of pulmonary hypertension. RVSP 24mmHg MITRAL VALVE: Normal mobility and thickness. No evidence of mitral valve stenosis. There is no mitral annular calcification. Trivial mitral regurgitation. AORTIC VALVE: Normal trileaflet appearance. No visible sclerosis. Normal leaflet mobility. No evidence of aortic valve stenosis. AORTIC ROOT: Normal diameter and appearance. PULMONIC VALVE: Normal thickness and mobility. No stenosis. Trivial regurgitation. PERICARDIUM: Anterior free space; trivial effusion versus fat pad. IVC: Collapses with inspirations. Normal size. CONCLUSION: 1. Global left ventricular systolic function is normal; visually estimated ejection fraction is 60 to 65% 2. Normal right ventricular size and systolic function 3. Mild left ventricular hypertrophy 4. Normal diastolic function 5. The left atrium is normal in size 6. No significant valvular abnormalities 7. Anterior free space; trivial effusion versus fat pad Adult Echocardiography Procedure Report Left Ventricle LVEDD (3.7 - 5.6 cm): 4.91 cm LVESD (2.2 - 4.0 cm): 3.22 cm LVIVS thickness (0.6 - 1.2 cm): 1.21 cm LVPW thickness (0.5 - 1.0 cm): 1.20 cm e': 0.13 m/s E - e': 4.56 LVOT Max Gradient: 6.38 mm[Hg], 6.31 mm[Hg] LVOT Area (cm2): 1.26 m/s Peak Velocity (LVOT): 1.26 m/s, 1.26 m/s Mean Velocity (LVOT): 0.74 m/s LVOT Diameter 1.96 cm Left Atrium LA Volume Index (2D A2C): 31.24 ml/m2 Left Atrium Systolic Dimension: 4.08 cm Mitral Valve MV E to A Ratio: 0.73 Mitral Valve A-Wave Peak Velocity: 0.82 m/s Mitral Valve E-Wave Peak Velocity: 0.60 m/s Right Ventricle RV Internal Diastolic Dimension: 3.01 cm Aorta AO Root Diam: 3.33 cm Ascending Ao Diam: 2.98 cm Aortic Valve AoV Area (Peak Valeriano): 2.54 cm2, 2.83 cm2, 2.31 cm2 AoV Area (VTI): 2.13 cm2, 2.65 cm2, 1.81 cm2 Peak Velocity(Antegrade Flow): 1.34 m/s, 1.64 m/s Peak Gradient(Antegrade Flow): 7.22 mm[Hg], 10.72 mm[Hg] Mean Velocity(Antegrade Flow): 0.92 m/s, 1.11 m/s Mean Gradient(Antegrade Flow): 3.82 mm[Hg], 5.72 mm[Hg] Velocity Time Integral: 18.85 cm, 30.37 cm Tricuspid Valve Peak Velocity (Regurgitant Flow): 1.94 m/s, 2.29 m/s Pulmonic Valve Mean Gradient: 4.02 mm[Hg], 3.85 mm[Hg], 4.16 mm[Hg] Mean Velocity: 0.93 m/s, 0.91 m/s, 0.93 m/s Peak Velocity: 1.37 m/s Peak Gradient: 7.40 mm[Hg], 7.01 mm[Hg], 8.30 mm[Hg] Right Atrium Right Atrium Systolic Pressure: 22.08 ml, 22.08 ml Dictated by: Al Johnson M.D. on 05/11/2024 at 13:25 Approved by: lA Johnson M.D. on 05/11/2024 at 13:28
[2024-05-11] MEDS: VENLAFAXINE HCL ER 150 MG CAPSULE 300 MG PO (08:44)
[2024-05-11] MEDS: PYRIDOSTIGMINE BROMIDE 60 MG TABLET 120 MG PO ×3 (08:44→17:56)
[2024-05-11] MEDS: FUROSEMIDE 40 MG/4 ML VIAL IVP (08:44)
[2024-05-11] MEDS: MAGNESIUM OXIDE 400 MG TABLET PO ×2 (08:45→19:19)
[2024-05-11] MEDS: ATORVASTATIN CALCIUM 40 MG TABLET PO (08:45)
[2024-05-11] MEDS: ASPIRIN 81 MG TAB.CHEW PO ×2 (08:45→09:20)
[2024-05-11] MEDS: SITAGLIPTIN PHOSPHATE 50 MG TABLET 100 MG PO (08:45)
[2024-05-11] MEDS: SPIRONOLACTONE 25 MG TABLET 12.5 MG PO (08:45)
[2024-05-11] MEDS: LEVOTHYROXINE SODIUM 25 MCG TABLET 50 MCG PO (08:45)
[2024-05-11 10:19] LABS: Troponin I High Sensitivity 1036.8 pg/mL (4.0-51.3)
--- NOTE | 2024-05-11 10:46 | CM.NOTE ---
Rounds made with Dr. Sosa, pt changed to inpatient status with elevated Troponins. Discussed with pt plan of care, cardiology with consult on pt for further recommendations.
--- NOTE | 2024-05-11 11:51 | SWNOTE1 ---
SW stopped in to speak with pt as she was tearful in regards to not having insurance. Pt did have paperwork from medicaid and she has completed forms and sent in all required documentation. SW and pt called the [place] Dept of Medicaid together and after several prompts it was verified that pt does have Medicaid as of 05/10/24. SW emailed [facility] to confirm. [facility] emailed back and pt does have Medicaid HMO and they have already updated system.
[2024-05-11 11:53] LABS: INR 1.02; Partial Thromboplastin Time 28.7 sec (22.3-36.2); Prothrombin Time 10.8 sec (9.0-11.6)
--- NOTE | 2024-05-11 12:18 | P.HP_ITS ---
HPI H&P: HPI History of Present Illness Chief complaint: SOB CARDIAC SYMPTOMS DYSPNEA, ELEVATED TROPONIN Narrative: 63-year-old female with past medical history of essential hypertension, hyperlipidemia, type 2 diabetes and coronary artery disease status post coronary artery bypass graft surgery in November 2022 presented to ER via EMS for worsening shortness of breath for past few weeks. She reports progressive dyspnea on exertion along with weight gain of 10 pounds and lower extremity edema for past few weeks. She was trying to hold off coming to ER but she got so short of breath that she felt that she could not breathe anymore so she called EMS and was brought over to ED for further evaluation. In ER, she was found to have evidence of acute on chronic diastolic heart failure with volume overload on exam, chest x-ray along with elevated BNP. She was also found to have elevated troponin for which on-call radiologist physician was contacted. It was felt that troponin was elevated likely secondary to acute on chronic congestive heart failure. Patient was admitted to ICU overnight and started on IV Lasix. Patient was seen earlier today and she felt overall a little bit better but was still short of breath at rest. During my exam, she denied any chest pain, heart palpitations. Her cardiac troponins trended up overnight with most recent troponin measured at 1036. Patient was evaluated by by cardiology and was recommended transfer to [facility] for higher level of care and left heart cath. Patient started on IV heparin drip. Her last dose of Xarelto was on 05/09/2024. Opioid HPI Opioid Management Most Recent Pain and Opioid Data: Last Pain Scale 7 09/07/23 03:37 09/07/23 Last Pain Assessment 05/11/24 12:00 Last ORT Total Score 0 05/10/24 18:27 05/10/24 Last ORT Risk Category Low Risk 05/10/24 18:27 05/10/24 Review of Systems ROS Status of ROS 10 or more systems reviewed and unremark able except as noted in history and below [facility] Medical History (Updated 05/11/24 @ 12:28 by Shaikh Sheila MD) Type 2 diabetes mellitus ?E11.9 - Type 2 diabetes mellitus without complications (ICD-10) Paroxysmal A-fib ?I48.0 - Paroxysmal atrial fibrillation (ICD-10) Former smoker ?Z87.891 - Personal history of nicotine dependence (ICD-10) CAD (coronary artery disease) ?I25.10 - Atherosclerotic heart disease of [place] coronary artery without angina pectoris (ICD-10) HLD (hyperlipidemia) ?E78.5 - Hyperlipidemia, unspecified (ICD-10) Hypothyroid ?E03.9 - Hypothyroidism, unspecified (ICD-10) High cholesterol ?E78.00 - Pure hypercholesterolemia, unspecified (ICD-10) Surgical History (Updated 05/10/24 @ 17:46 by Rosey Lai) S/P triple vessel bypass ?Z95.1 - Presence of aortocoronary bypass graft (ICD-10) Social History Highest level of school completed/degree received: Associate degree: occupational, technical, vocational program Little interest or pleasure in doing things: not at all Feeling down, depressed, or hopeless: not at all Meds Home Medications and Allergies Home Medications ?Medication ?Instructions ?Recorded ?Confirmed ?Type pyridostigmine bromide 60 mg tablet 120 mg PO QID 12/24/22 05/11/24 History rivaroxaban 20 mg tablet (Xarelto) 20 mg PO .qhs 12/24/22 05/11/24 History sitagliptin phosphate 100 mg 100 mg PO DAILY 12/24/22 05/10/24 History tablet (Januvia) venlafaxine 150 mg 300 mg PO DAILY 12/24/22 05/10/24 History capsule,extended release 24 hr levothyroxine 50 mcg tablet 50 mcg PO DAILY 09/07/23 05/10/24 History atorvastatin 40 mg tablet 40 mg PO DAILY 05/10/24 05/10/24 History furosemide 40 mg tablet 40 mg PO DAILY 05/10/24 05/10/24 History magnesium oxide 400 mg (241.3 mg 400 mg PO BID 05/10/24 05/10/24 History magnesium) tablet spironolactone 25 mg tablet 12.5 mg PO DAILY 05/10/24 05/10/24 History aspirin 81 mg tablet,delayed 81 mg PO DAILY 05/11/24 05/11/24 History release lamotrigine 200 mg tablet 200 mg PO .qhs 05/11/24 05/11/24 History metoprolol tartrate 25 mg tablet 12.5 mg PO BID 05/11/24 05/11/24 History Allergies Allergy/AdvReac Type Severity Reaction Status Date / Time Sulfa (Sulfonamide Allergy Intermediate Verified 09/07/23 01:31 Antibiotics) Exam Constitutional Vital Signs, click to edit/add: Last Vital Signs Temp 97.7 F 05/11/24 12:00 Pulse 60 05/11/24 12:00 Resp 18 05/11/24 12:00 BP 141/70 05/11/24 12:00 Pulse Ox 96 05/11/24 12:00 O2 Del Method Room Air 05/10/24 18:27 Documenting provider has reviewed patient's vital signs: yes Common normals: oriented x3 General appearance: cooperative Nutritional appearance: obese Other: Appears short of breath HENMT Common normals: normocephalic and head/scalp atraumatic Head and scalp: normocephalic and atraumatic Eye Common normals: conjunctivae normal and no scleral icterus Conjunctiva: conjunctiva(e) normal Respiratory Common normals: normal respiratory effort and clear to auscultation bilaterally Auscultation: crackles and diminished lung sounds Other: Appears short of breath Cardio Common normals: regular rate, S1 normal heart sound and S2 normal heart sound Rate: regular rate Heart sounds: S1 normal and S2 normal GI Common normals: Normal to inspection, nondistended, normoactive bowel sounds present, soft to palpation, non-tender and no hepatosplenomegaly Palpation: soft and no hepatosplenomegaly Extremity Other: Lower extremity edema noted. Neuro Common normals: oriented x3, moves all extremities and no focal motor deficits Psych Common normals: mental status grossly normal, denies hallucinations, denies homicidal ideation and denies suicidal ideation Results Labs Labs: Short CBC 05/10/24 05/11/24 Range/Units 14:45 05:10 WBC 8.2 7.0 (4.0-11.0) 10^3/uL Hgb 13.9 13.2 (12.0-16.0) g/dL Hct 41.9 39.9 (36.0-48.0) % Plt Count 256 226 (150-450) 10^3/uL BMP 05/10/24 05/11/24 14:45 05:10 Sodium 138 139 Potassium 4.4 3.7 Chloride 102 103 Carbon Dioxide 29.0 30.0 BUN 14.0 15.0 Creatinine 1.17 H 1.17 H Glucose 142 H 127 H Calcium 9.3 9.2 Liver Function 05/10/24 Range/Units 14:45 Total Bilirubin 0.5 (0.2-1.0) mg/dL AST 22 (15-37) U/L ALT 21 (14-59) U/L Alkaline Phosphatase 144 H (46-116) U/L Albumin 3.5 (3.4-5.0) g/dL Assessment and Plan Assessment and Plan (1) Acute on chronic diastolic (congestive) heart failure: Assessment and Plan: Volume overload on exam. Echocardiogram ordered to assess cardiac structure. Continue with IV Lasix 40 twice daily. Strict monitoring of intake and output along with daily weights ordered. (2) NSTEMI (non-ST elevated myocardial infarction): Assessment and Plan: Clinical presentation consistent with non-ST elevation MS. Patient started on IV heparin. Continue with aspirin, Lopressor, statin. Will need left heart catheterization (3) CAD (coronary artery disease): Assessment and Plan: Patient had a coronary artery bypass surgery in November 2023. She now presents for shortness of breath and workup consistent with NSTEMI. She is also in acute on chronic congestive heart failure and currently on IV Lasix. Continue with aspirin, statin. On IV heparin drip for NSTEMI. Qualifiers: Coronary Disease-Associated Artery/Lesion type: [place] artery [place] vs. transplanted heart: [place] heart Associated angina: without angina Qualified Code(s): I25.10 - Atherosclerotic heart disease of [place] coronary artery without angina pectoris (4) Hypothyroid: Assessment and Plan: Continue with levothyroxine Qualifiers: Hypothyroidism type: unspecified Qualified Code(s): E03.9 - Hypoth yroidism, unspecified (5) Paroxysmal A-fib: Assessment and Plan: In normal sinus rhythm. On Xarelto for stroke prophylaxis. Hold Xarelto as pa tient was started on IV heparin. Her last dose was on 05/09/2024 (6) Type 2 diabetes mellitus: Assessment and Plan: On Januvia as outpatient. Sliding scale insulin while inpatient. Qualifiers: Diabetes mellitus chcf insulin use: without chcf use Diabetes mellitus complication status: without complication Qualified Code(s): E11.9 - Type 2 diabetes mellitus without complications (7) HLD (hyperlipidemia): Assessment and Plan: Continue with statin Qualifiers: Hyperlipidemia type: unspecified Qualified Code(s): E78.5 - Hyperlipidemia, unspecified (8) Former smoker: Assessment and Plan: Stopped smoking in November 2023. (9) Morbid obesity: Assessment and Plan: Patient morbidly obese. I was unable to discuss lifestyle measures as she is currently acutely sick. Will defer to patient's PCP. Given her history of morbid obesity and type 2 diabetes, she is a good candidate for GLP agonist to help her lose some weight. Plan Patient currently inpatient ICU level of care for NSTEMI and acute on chronic diastolic heart failure. He is close hemodynamic and telemonitoring. Awaiting callback from [facility] transfer center to discuss transfer. Currently denies any chest pain and has shortness of breath which is improving with IV diuresis.
[2024-05-11] MEDS: HEPARIN SODIUM,PORCINE/D5W 25,000 UNIT/500 ML IV.SOLN 18 UNIT IV (12:26)
[2024-05-11] MEDS: HEPARIN SODIUM (PORCINE) 5,000 UNIT/ML VIAL 4000 UNIT IV (12:27)
[2024-05-11] MEDS: METOPROLOL TARTRATE 25 MG TABLET 12.5 MG PO (12:38)
--- NOTE | 2024-05-11 17:00 | ECG_ITS ---
The [facility] Test Date: 2024-05-11 Pat Name: NICOLAS HARRIS Department: Room: [facility] Gender: Female Marketing Traffic Manager: : 1960 Requested By: RAJI MANSFIELD Order Number: [id number] Reading MD: DOMINIK HALL Measurements Intervals [place] Rate: 88 P: -76 MT: 176 QRS: 86 QRSD: 90 T: 59 QT: 388 QTc: 434 Interpretive Statements 1220 Rapid atrial rhythm 1470 with occasional supraventricular premature complexes 2420 RSR (QR) in lead V1/V2, consistent with right ventricular conduction delay 8102 Low QRS voltage in chest leads 9140 abnormal rhythm ECG Electronically Signed On 05-12-2024 7:12:21 EST by DOMINIK HALL
[2024-05-11 19:02] LABS: PTT Heparin Monitor 36.6 sec (43.5-61.5)
[2024-05-11] MEDS: ACETAMINOPHEN 500 MG TABLET 1000 MG PO (19:19)
== END 2024-05-11 20:45 | disposition short-term general hospital (02) | DRG 190 ==
LOC: ER 17:34 → ICU 18:25
PROVIDERS: Family Medicine; Admitting Provider Internal Medicine; Emergency Provider Emergency Medicine; PCP Family Medicine; Visit Provider Internal Medicine
DX: I21.4 Non-ST elevation (NSTEMI) myocardial infarction (principal); I11.0 Hypertensive heart disease with heart failure; I50.33 Acute on chronic diastolic (congestive) heart failure; I25.10 Atherosclerotic heart disease of native coronary artery without angina pectoris; Z95.1 Presence of aortocoronary bypass graft; E03.9 Hypothyroidism, unspecified; I48.0 Paroxysmal atrial fibrillation; E11.9 Type 2 diabetes mellitus without complications; Z79.84 Long term (current) use of oral hypoglycemic drugs; Z87.891 Personal history of nicotine dependence; E66.01 Morbid (severe) obesity due to excess calories; Z79.01 Long term (current) use of anticoagulants; E78.00 Pure hypercholesterolemia, unspecified; Z68.43 Body mass index [BMI] 50.0-59.9, adult
CPT/HCPCS: 36415; 71046; 80048; 80053; 83880; 84484; 85025; 85610; 85730; 93005; 93306; 96365; 96366; 96372; 96375; 96376; 99285; G0378; J1644; J1940

== ENCOUNTER 2024-05-20 11:45 | Outpatient (OUT) | payer OTHER, SELFPAY ==
[2024-05-20 12:51] LABS: Anion Gap 11.4; BUN Creatinine Ratio 19.6; Calcium 9.4 mg/dL (8.5-10.1); Carbon Dioxide 30.4 mmol/L (21.0-32.0); Chloride 102 mmol/L (98-107); Estimated GFR (African America 60 (>=60 mL/min/1.73m^2); Estimated GFR (Non-African Ame 49 (>=60 mL/min/1.73m^2); Glucose 158 mg/dL (74-106); Potassium 3.8 mmol/L (3.5-5.1); Sodium 140 mmol/L (136-145)
== END 2024-05-20 11:46 | disposition home or self-care (01) ==
PROVIDERS: PCP Family Medicine; Visit Provider Nurse Practitioner Family
DX: I50.9 Heart failure, unspecified (principal)
CPT/HCPCS: 36415; 80048

== ENCOUNTER 2024-06-11 16:47 | Outpatient (OUT) | payer OTHER, SELFPAY ==
--- OUTSIDE RECORDS SUMMARY | 2024-06-11 17:11 | XMS_ITS | CCD ---
Author Organization [facility] Care Team Providers Care Optical Laboratory Mechanic Name Role Phone Anibal Chaudhary Primary Care Provider Sidra Potter Attending Provider ANIBAL CHAUDHARY Primary Care Physician Anibal Chaudhary Unavailable MISC, DR HALEY Admitting Unavailable MISC, DR HALEY Attending Unavailable ANIBAL CHAUDHARY Primary Care Unavailable MISC, DR HALEY Consulting Unavailable MISC, DR HALEY Admitting Unavailable MISC, DR HALEY Attending Unavailable ANIBAL CHAUDHARY Primary Care Unavailable MISC, DR HALEY Consulting Unavailable MISC, DR HALEY Admitting Unavailable MISC, DR HALEY Attending Unavailable ANIBAL CHAUDHARY Primary Care Unavailable MISC, DR HALEY Consulting Unavailable ANIBAL CHAUDHARY Admitting Unavailable ANIBAL CHAUDHARY Attending Unavailable ANIBAL CHAUDHARY Primary Care Unavailable ANIBAL CHAUDHARY Consulting Unavailable Virgilio Mckeon Unavailable MD Anibal Chaudhary Primary Care Provider MD Froilan Brown Admit Provider MD Petr Kowalski Attending Provider MD Anibal Chaudhary Primary Care Provider MD Froilan Brown Admit Provider MD Petr Kowalski Attending Provider Community, Outreach Attending Provider MD Anibal Chaudhary Primary Care Provider YANY AMEZCUA Attending Unavailable POCOSYANY Referring Unavailable POCOSYANY Referring Unavailable POCOS, YANY Jc Attending Unavailable MD Anibal Chaudhary Primary Care Provider NIRANJAN Wagoner Attending Provider Pocbernardo, Yany Jc Attending Unavailable Pocbernardo, Yany Jc Referring Unavailable ANIBAL CHAUDHARY Consulting Unavailable Yany Amezcua Admitting Unavailable Pocbernardo, Yany Jc Attending Unavailable Yany Amezcua Referring Unavailable MD ANIBAL CHAUDHARY Consulting Unavailable MD Anibal Chaudhary Primary Care Provider [phone] MD Anibal Chaudhary Attending Provider ObTOI conleyC Barby Fernandez Attending Provider AgnesSTARRC Gale Attending Provider Agnes, Gale Admitting Unavailable Agnes, Gale Attending Unavailable NON STAFF Primary Care Unavailable Petr Kowalski Attending Unavailable Froilan Brown Admitting Unavailable Chaudhary, Anibal E Primary Care Unavailable Community, Outreach Attending Unavailable Anibal Chaudhary E Primary Care Unavailable Community, Outreach Admitting Unavailable Anibal Chaudhary E Primary Care Unavailable Pam Wagoner Admitting Unavailable Pam Wagoner Attending Unavailable Chaparro Anibal E Admitting Unavailable Chaudhary, Anibal E Primary Care Unavailable Anibal Chaudhary Attending Unavailable ObmundoeyBarby miller Admitting Unavailable ObmundoeyBarby miller Attending Unavailable Chaparro, Anibal E Primary Care Unavailable Agnes, Gale Admitting Unavailable Agnes, Gale Attending Unavailable NON STAFF Primary Care Provider Unavailabl DARY Candelario Attending Unavailable HORANI, EMILIE Admitting Unavailable HORNICOLASA EMILIE Referring Unavailable ALAN PATEL Attending Unavailable JORGE, ALAN Admitting Unavailable DAYA JOHNSON Attending Unavailable AGUEDA ZUÑIGA Referring Unavailabl e KUISIKOAGUEDA MONTANO Referring Unavailabl e KULAKOAGUEDA MONTANO Referring Unavailabl e AGUEDA ZUÑIGA Referring Unavailabl e DION VICTORIA Referring Unavailable AGUEDA ZUÑIGA Referring Unavailabl e PATELALAN Referring Unavailable PATEL, ALAN Referring Unavailable JULIENLORI LOOA Referring Unavailable RHONDA BARNES Referring Unavailable AGUEDA ZUÑIGA Referring Unavailabl e DAYA JOHNSON Attending Unavailable AGNESGALE Sethi Attending Unavailable MANSI BUTTS Referring Unavailable PATEL, ALAN Referring Unavailable RIAN BUTTS Referring Unavailable ZENZ, KENDELL Referring Unavailable ZENZ, KENDELL Referring Unavailable KULAKOTAYLORKI, AGUEDA Miramontes Referring Unavailabl e PATEL, ALAN Referring Unavailable PATEL, ALAN Referring Unavailable PATEL, ALAN Referring Unavailable JULIEN, Referring Unavailable CAMILO, YASH Referring Unavailable PATEL, ALAN Referring Unavailable JULIEN, Referring Unavailable JULIEN, Referring Unavailable KULAKOWSKI, AGUEDA Miramontes Referring Unavailabl e HAFSA, SAMJAMILAH Referring Unavailable KULAKOWSKI, AGUEDA Miramontes Referring Unavailabl e JULIEN, Referring Unavailable CAMERON, RHONDA Referring Unavailable CAMERON, RHONDA Referring Unavailable KULAKOWSKI, AGUEDA Miramontes Referring Unavailabl e KENDALLDARRYL Attending Unavailable ALGHOTHANI, SEUND Referring Unavailable KENDALLDARRYL Attending Unavailable JULIEN, Referring Unavailable MURRIETA, JOSÉ MIGUEL Referring Unavailable JULIEN, Attending Unavailable JULIEN, Referring Unavailable KULAKOWSKI, AGUEDA Miramontes Referring Unavailabl e KULAKOWSKI, AGUEDA Miramontes Referring Unavailabl e Allergies Allergy Classification Reported Allergen(s) Allergy Type Date of Onset Reaction(s) Facility Unclassified (1 source) Allergy to substance [facility] (13 sources) Codeine Drug Allergy Unknown [employer] [id number] Other (20 sources) Metoclopramide Drug Allergy 05-08-19 24 Unknown, [facility] (13 sources) Sulfamethoxazole / Trimethoprim Drug Allergy Unknown [id number] Other (13 sources) Sulfonamides (Antibiotic) Drug allergy rash [id number] Other (12 sources) Codeine; Translations: [CODEINE] Drug Allergy 04-06-19 14 [facility] (1 source) Iothalamate Drug Allergy 04-06-19 14 [facility] (1 source) Morphine Drug Allergy 04-12-19 14 [facility] (1 source) Sulfonamides (Antibiotic) Drug allergy (disorder) 04-06-19 14 [facility] (5 sources) Codeine Drug Allergy 02-25-20 14 Unknown [employer] Other (14 sources) Sulfonamides (Antibiotic); Translations: [Sulfa (Sulfonamide Antibiotics)] Allergy to substance 03-11-20 14 Hives, Hives, rash [facility] (11 sources) Sulfamethoxazole; Translations: [sulfamethoxazole] Drug Allergy 05-08-19 24 [facility] (11 sources) Trimethoprim; Translations: [trimethoprim] Drug Allergy 05-08-19 [facility] (1 source) Codeine Drug Allergy 10-27-19 [facility] (1 source) Metoclopramide Drug Allergy 10-27-19 [facility] (1 source) Metoclopramide; Translations: [METOCLOPRAMIDE HCL] Drug Allergy 03-11-20 14 [facility] Medications Current Medications Medication Drug Class(es) Dates Sig (Normalized) Sig (Original) acetaminophen 500 mg oral tablet (12 sources) Start: 12-24-2022 End: 05-28-2024 take 1 tablet by mouth twice daily as needed for pain Acetaminophen 500 mg Tablet Discontinued 500 MG PO Twice daily as needed for Pain December 24, 2022 12:00am May 28, 2024 12:42pm 24 hr amphetamine aspartate 2.5 mg / amphetamine sulfate 2.5 mg / dextroamphetamine saccharate 2.5 mg / dextroamphetamine sulfate 2.5 mg extended release oral capsule (2 sources) Central Nervous System Stimulant Start: 12-27-2022 take 1 capsule by mouth every twenty-four hours Adderall XR 10 MG 1 capsule in the morning Orally Once a day for 30 days Dec, Active aspirin 81 mg delayed release oral tablet (2 sources) Platelet Aggregation Inhibitor, Nonsteroidal Anti-inflammatory Drug Start: 01-22-2024 take 1 tablet by mouth once daily Aspirin 81 mg tablet,delayed release (DR/EC) Active 81 MG PO Daily January 22, 2024 12:00am atorvastatin 40 mg oral tablet (2 sources) HMG-CoA Reductase Inhibitor Start: 01-22-2024 End: 05-28-2024 take 1 tablet by mouth once daily Atorvastatin 40 mg tablet Discontinued 40 MG PO Daily January 22, 2024 12:00am May 28, 2024 12:42pm cariprazine 3 mg oral capsule (8 sources) Atypical Antipsychotic Start: 08-19-2023 End: 05-28-2024 take 1 capsule by mouth once daily Cariprazine (Vraylar) 3 mg capsule Discontinued 3 MG PO Daily August 19, 2023 12:00am May 28, 2024 12:42pm cholecalciferol 1.25 mg oral capsule (15 sources) Vitamin D Start: 10-06-2023 End: 05-28-2024 take 1 capsule by mouth every week Cholecalciferol (Vitamin D3) 1,250 mcg (50,000 unit) capsule Discontinued 0 .ROUTE .COMPLEX October 06, 2023 10:00am May 28, 2024 12:42pm TAKE 1 CAPSULE BY MOUTH ONCE A WEEK Start: 10-06-2023 take 1 capsule by mo ut every week Cholecalciferol (Vitamin D3) Active 0 .ROUTE .COMPLEX October 06, 2023 10:00am TAKE 1 CAPSULE BY MOUTH ONCE A WEEK Start: 07-18-2023 End: 10-06-2023 take 1 capsule by mouth every week Cholecalciferol (Vitamin D3) 1,250 mcg (50,000 unit) capsule Discontinued 1250 MCG PO every week 13 90 July 18, 2023 12:00am October 06, 2023 10:00am dapagliflozin 10 mg oral tablet (1 source) Sodium-Glucose Cotransporter 2 Inhibitor Start: 05-28-2024 take 1 tablet by mouth once daily Dapagliflozin Propanediol (Farxiga) 10 mg tablet Active 10 MG PO Daily May 28, 2024 1:00am 30 actuat fluticasone furoate 0.1 mg/actuat / vilanterol 0.025 mg/actuat dry powder inhaler (2 sources) Corticosteroid, beta2-Adrenergic Agonist Start: 01-22-2024 End: 05-28-2024 Fluticasone Furoate-Vilanterol (Breo Ellipta) 100-25 mcg/dose blister with device Discontinued INHALATION January 22, 2024 12:00am May 28, 2024 12:39pm furosemide 40 mg oral tablet (2 sources) Loop Diuretic Start: 01-22-2024 take 1 tablet by mouth once daily Furosemide 40 mg tablet Active 40 MG PO Daily January 22, 2024 12:00am hydroxychloroquine sulfate 200 mg oral tablet (20 sources) Antimalarial, Antirheumatic Agent Start: 05-20-2018 End: 05-28-2024 take 1 tablet by mouth twice daily Hydroxychloroquine 200 mg tablet Discontinued 200 MG PO Twice daily May 20, 2018 1:00am May 28, 2024 12:42pm lamoTRIgine 200 mg oral tablet (20 sources) Mood Stabilizer, Anti-epileptic Agent Start: 07-10-2023 take 1 tablet by mouth once daily Lamotrigine 200 mg tablet Active 200 MG PO Daily July 10, 2023 12:00am Start: 05-20-2018 take 150 mg by mouth once yolanda y Lamotrigine Active 150 MG PO Daily May 20, 2018 3:39pm Start: 05-20-2018 End: 07-10-2023 Lamotrigine 150 mg tablet Discontinued 200 MG PO Daily May 20, 2018 1:00am July 10, 2023 1:44pm Start: 05-20-2018 End: 07-10-2023 take 200 mg by mouth once daily Lamotrigine Discontinu ed 200 MG PO Daily May 20, 2018 1:00am July 10, 2023 1:44pm take 1 tablet by veronica th every twenty-four hours lamoTRIgine 200 MG 1 tablet Orally Once a day for 90 days Active levothyroxine sodium 0.05 mg oral tablet (20 sources) l-Thyroxine Start: 08-20-2023 End: 04-20-2024 take 1 tablet by mouth once daily Levothyroxine 50 mcg tablet Active 50 MCG PO Daily April 20, 2024 5:40pm magnesium oxide 400 mg oral tablet (2 sources) Start: 01-22-2024 take 1 tablet by mouth twice daily Magnesium Oxide 400 mg magnesium tablet Active 400 MG PO Twice daily January 22, 2024 12:00am 24 hr metoprolol succinate 25 mg extended release oral tablet (20 sources) beta-Adrenergic Na Start: 05-28-2024 take 1 tablet by mouth once daily Metoprolol Succinate 25 mg tablet extended release 24 hr Active 25 MG PO daily May 28, 2024 1:00am Start: 01-22-2024 End: 05-28-2024 Metoprolol Tartrate 25 mg ta blet Discontinued 12.5 MG PO Daily January 22, 2024 12:00am May 28, 2024 12:40pm Start: 01-22-2024 take 12.5 mg by mout h once daily Metoprolol Tartrate Active 12.5 MG PO Daily January 22, 2024 12:00am Start: 05-20-2018 take 100 mg by mouth once yolanda y Metoprolol Succinate Active 100 MG PO Daily May 20, 2018 3:39pm Start: 05-20-2018 End: 01-22-2024 take 2 tablets by mouth once daily Metoprolol Succinate 100 mg tablet extended release 24 hr Discontinued 50 MG PO Daily May 20, 2018 1:00am January 22, 2024 10:11am Start: 05-20-2018 End: 01-22-2024 take 50 mg by mouth once daily Metoprolol Succinate Di scontinued 50 MG PO Daily May 20, 2018 1:00am January 22, 2024 10:11am take 1 tablet by veronica th every twenty-four hours Metoprolol Succinate ER 50 MG 1 tablet Orally Once a day Active Metoprolol Tartr ate Not-Taking midodrine hydrochloride 2.5 mg oral tablet (3 sources) alpha-Adrenergic Agonist take 1 tablet by mouth every eight hours Midodrine HCl 2.5 MG 1 tablet three times a day Active mirtazapine 15 mg oral tablet (2 sources) Start: 01-22-20 End: 05-29-19 take 1 tablet by mouth once daily Mirtazapine 15 mg tablet Discontinued 15 MG PO Daily January 22, 2024 12:00am May 28, 2024 12:40pm mupirocin 0.02 mg/mg topical ointment (20 sources) RNA Synthetase Inhibitor Antibacterial Start: 10-24-19 End: 05-29-19 25 Mupirocin 2 % ointment Discontinued 1 APPLIC TOPICAL Twice daily October 24, 2023 12:00am May 28, 2024 12:42pm [employer] application Externally Twice a day; Note: Source Status: Taking; Refills: 1; Qty: 22 Gram; Provider: Chaparro Reynoso Start: 10-24-2023 Mupirocin Acti ve 1 APPLIC TOPICAL Twice daily October 24, 2023 12:00am [employer] application Externally Twice a day; Note: Source Status: Taking; Refills: 1; Qty: 22 Gram; Provider: Chaparro Reynoso Start: 04-29-2022 Mupirocin 2 % 1 application Externally Twice a day for 5 day(s) Apr, Active ondansetron 4 mg oral tablet (1 source) Serotonin-3 Receptor Antagonist Start: 05-28-2024 take 1 tablet by mouth every eight hours as needed for nausea and vomiting Ondansetron Hcl 4 mg tablet Active 4 MG PO Every 8 hours as needed for nausea and vomiting May 28, 2024 1:00am pyridostigmine bromide 60 mg oral tablet (20 sources) Start: 12-24-2022 take 2 tablets by mouth four times daily Pyridostigmine [place] 60 mg tablet Active 120 MG PO Four times daily December 24, 2022 12:00am Start: 12-24-2022 End: 05-08-2023 take 2 tablets by mouth twice daily Pyridostigmine [place] 60 mg Tablet Discontinued 120 MG PO Twice daily 0 December 24, 2022 12:00am May 08, 2023 4:09pm Start: 12-24-2022 take 120 mg by mouth four times daily Pyridostigmine [place] Active 120 MG PO Four times daily December 24, 2022 12:00am Start: 12-24-2022 End: 12-24-2022 Pyridostigmine [place] 180 m g Tablet Extended Release Discontinued 120 MG PO Daily December 24, 2022 12:00am December 24, 2022 8:13am Start: 12-24-2022 End: 12-24-2022 take 120 mg by mouth once daily Pyridostigmine [place] Discontinued 120 MG PO Daily December 24, 2022 12:00am December 24, 2022 8:13am Start: 12-24-2022 End: 05-08-2023 take 120 mg by mouth twice daily Pyridostigmine [place] Discontinued 120 MG PO Twice daily 0 December 24, 2022 12:00am May 08, 2023 4:09pm take 1 tablet by veronica th every four hours Pyridostigmine [place] 60 MG 1 tablet Orally every 4 hrs Active rivaroxaban 20 mg oral tablet (20 sources) Factor Xa Inhibitor Start: 10-22-2023 take 1 tablet by mouth once daily Rivaroxaban (Xarelto) 20 mg tablet Active 0 .ROUTE .COMPLEX 90 October 22, 2023 8:35am TAKE 1 TABLET BY MOUTH ONCE DAILY Start: 12-24-2022 End: 10-22-2023 take 1 tablet by mouth once daily Rivaroxaban (Xarelto) 20 mg tablet Discontinued 20 MG PO Daily July 25, 2023 9:06am October 22, 2023 8:35am rOPINIRole 0.5 mg oral tablet (5 sources) Nonergot Dopamine Agonist take 1 tablet by mouth once daily at bedtime rOPINIRole HCl 0.5 MG 1 tablet 1 to 3 hours before bedtime Orally Once a day Active rosuvastatin calcium 20 mg oral tablet (1 source) HMG-CoA Reductase Inhibitor Start: 5 take 1 tablet by mouth once daily Rosuvastatin 20 mg tablet Active 20 MG PO Daily May 28, 2024 1:00am sacubitril 24 mg / valsartan 26 mg oral tablet (1 source) Angiotensin 2 Receptor Na Start: 5 take 0.5 tablet by mouth twice daily Sacubitril-Valsartan (Entresto) 24-26 mg tablet Active 0.5 TAB PO Twice daily May 28, 2024 1:00am SITagliptin 100 mg oral tablet (20 sources) Dipeptidyl Peptidase 4 Inhibitor Start: End: 5 take 1 tablet by mouth once daily Sitagliptin Phosphate (Januvia) 100 mg tablet Discontinued 0 .ROUTE .COMPLEX December 03, 2023 9:46am May 28, 2024 12:41pm TAKE 1 TABLET BY MOUTH DAILY Start: 12-24-2022 End: 09-09-2023 take 1 tablet by mouth once daily Sitagliptin Phosphate (Januvia) 100 mg tablet Discontinued 100 MG PO Daily December 24, 2022 12:00am September 09, 2023 9:11am sodium chloride 1000 mg oral tablet (9 sources) Start: 10-24-2023 End: 05-28-2024 take 1 tablet by mouth once daily Sodium Chloride 1,000 mg tablet,soluble Discontinued 1 TAB PO Daily October 24, 2023 12:00am May 28, 2024 12:41pm [employer] tablet Orally daily; Note: Source Status: Start; Refills: 1; Qty: 90 Tablet; Provider: Chaparro Reynoso take 1 tablet by veronica th every twenty-four hours Sodium Chloride 1 GM 1 tablet Orally daily for 90 days Active spironolactone 25 mg oral tablet (4 sources) Aldosterone Antagonist Start: 01-22-2024 Spironolactone 25 mg tablet Active 12.5 MG PO Daily January 22, 2024 10:12am Start: 01-22-2024 take 12.5 mg by mout h once daily Spironolactone Active 12.5 MG PO Daily January 22, 2024 10:12am Start: 01-22-2024 End: 01-22-2024 take 1 tablet by mouth once daily Spironolactone 25 mg tablet Discontinued 25 MG PO Daily January 22, 2024 12:00am January 22, 2024 10:14am tiZANidine 4 mg oral tablet (5 sources) Central alpha-2 Adrenergic Agonist take 1 tablet by mouth once daily at bedtime as needed tiZANidine HCl 4 MG TAKE 1 TABLET BY MOUTH EVERY DAY AT BEDTIME NEEDED for 90 days Active 24 hr venlafaxine 150 mg extended release oral capsule (20 sources) Serotonin and Norepinephrine Reuptake Inhibitor Start: 05-20-19 take 1 capsule by mouth once daily Venlafaxine 150 mg capsule,extended release 24hr Active 300 MG PO Daily May 20, 2018 1:00am Start: 05-20-2018 take 300 mg by mouth once yolanda y Venlafaxine Active 300 MG PO Daily May 20, 2018 1:00am take 2 capsules by m outh once daily Venlafaxine HCl ER 150 MG TAKE 2 CAPSULES BY MOUTH DAILY for 90 Active Effexor XR Not-T aking Completed/Discontinued Medications Medication Drug Class(es) Dates Sig (Normalized) Sig (Original) acetaminophen 325 mg / HYDROcodone bitartrate 5 mg oral tablet (18 sources) Opioid Agonist Start: 05-08-2023 End: 08-19-2023 take 1 tablet by mouth every six hours as needed for pain Hydrocodone-Acetami nophen 5-325 mg tablet Discontinued 1 TAB PO Every 6 hours as needed for pain 18 10May 08, 2023 August 19, 2023 10:46am Start: [...] 6 hrs for 30 days Apr, Active [id number] 200 actuat albuterol 0.09 mg/actuat metered dose [...] Not-Taking busPIRone hydrochloride 10 mg oral tablet (18 sources) Start: 05-08-2023 End: 08-19-2023 take 1 tablet by mouth twice daily Buspirone 10 mg tablet Discontinued 10 MG PO Twice daily 60 June 03, 2023 10:41am August 19, 2023 10:45am ketorolac tromethamine 5 mg/ml ophthalmic solution (12 sources) Nonsteroidal Anti-inflammatory Drug, Cyclooxygenase Inhibitor Start: 12-24-2022 End: 05-08-2023 take 1 drop(s) into the eye(s) four times daily Ketorolac 0.5 % drops Discontinued 1 DROPS EYE-RIGHT Four times daily December 24, 2022 12:00am May 08, 2023 4:08pm Start: 12-24-2022 End: 05-08-2023 take 1 drop(s) into the eye(s) four times daily Ketorolac Discontinued 1 DROPS EYE-RIGHT Four times daily December 24, 2022 12:00am May 08, 2023 4:08pm lisinopril 5 mg oral tablet (18 sources) Angiotensin Converting Enzyme Inhibitor Start: 05-20-2018 End: 12-24-2022 take 1 tablet by mouth once daily Lisinopril 5 mg tablet Discontinued 5 MG PO Daily May 20, 2018 1:00am December 24, 2022 3:02am Lisinopril Not-T aking Omeprazole (5 sources) Proton Pump Inhibitor Omeprazole Not-Taking QUEtiapine 25 mg oral tablet (8 sources) Atypical Antipsychotic Start: 08-19-19 End: 10-27-19 take 1 tablet by mouth once daily at bedtime Quetiapine (Seroquel) 25 mg tablet Discontinued 25 MG PO Daily at bedtime August 19, 2023 12:00am October 27, 2023 2:29pm temazepam 15 mg oral capsule (18 sources) Benzodiazepine Start: 05-08-19 End: 05-08-19 take 1 capsule by mouth once daily at bedtime Temazepam (Restoril) 15 mg capsule Discontinued 15 MG PO Daily at bedtime May 08, 2023 1:00am May 08, 2023 4:37pm Start: 09-12-2022 take 1 capsule by mo [facility] every twenty-four hours Temazepam 15 MG 1 capsule at bedtime as needed Orally Once a day for 30 days Aug, Active traMADol hydrochloride 50 mg oral tablet (20 sources) Opioid Agonist Start: 08-19-2023 End: 01-22-2024 take 1 tablet by mouth twice daily as needed Tramadol 50 mg tablet Discontinued 50 MG PO Twice daily as needed August 19, 2023 12:00am January 22, 2024 10:20am Start: 12-24-2022 End: 05-08-2023 take 1 tablet by mouth every eight hours Tramadol 50 mg tablet Discontinued 50 MG PO Q8H December 24, 2022 12:00am May 08, 2023 4:10pm Start: 09-13-2022 take 1 tablet by [facility] three times daily as needed traMADol HCl 50 MG 1 tablet as needed Orally tid prn for 30 days Aug, Active traZODone hydrochloride 50 mg oral tablet (18 sources) Serotonin Reuptake Inhibitor Start: 05-08-2023 End: 08-19-2023 take 1 tablet by mouth once daily at bedtime Trazodone 50 mg tablet Discontinued 50 MG PO Daily at bedtime June 02, 2023 1:13pm August 19, 2023 10:46am warfarin sodium 10 mg oral tablet (18 sources) Vitamin K Antagonist Start: 05-20-2018 End: 12-24-2022 take 5 mg by mouth once daily Warfarin 10 mg tablet Discontinued 5 MG PO Daily May 20, 2018 1:00am December 24, 2022 3:03am Start: 05-20-2018 End: 12-24-2022 take 5 mg by mouth once daily Warfarin Discontinued 5 MG PO Daily May 20, 2018 1:00am December 24, 2022 3:03am Warfarin Sodium Not-Taking Problems Active Problems Problem Classification Problem Date Documented Da te Episodic/Chronic Acute myocardial infarction (2 sources) Non-ST elevation (NSTEMI) myocardial infarction; Translations: [Non-ST elevation (NSTEMI) myocardial infarction] Onset: 5 Chronic Administrative/social admission (1 source) Counseling procedure with explicit context; Translations: [Dietary counseling and surveillance] Episodic Anxiety disorders (14 sources) Anxiety; Translations: [Other specified anxiety disorders] Onset: 4 Chronic Cardiac dysrhythmias (2 sources) Paroxysmal atrial fibrillation; Translations: [Paroxysmal atrial fibrillation] Onset: 5 Chronic Congestive heart failure; nonhypertensive (6 sources) Acute on chronic combined systolic (congestive) and diastolic (congestive) heart failure; Translations: [Heart failure, unspecified] Onset: 4 Chronic Coronary atherosclerosis and other heart disease (7 sources) Atherosclerotic heart disease of [place] coronary artery without angina pectoris; Translations: [Atherosclerotic heart disease of [place] coronary artery with other forms of angina pectoris] Onset: 4 Chronic Diabetes mellitus with complications (16 sources) Hyperglycemia due to type 2 diabetes mellitus; Translations: [Type 2 diabetes mellitus with hyperglycemia] Onset: 2 Chronic Diabetes mellitus without complication (17 sources) Diabetes mellitus without complication; Translations: [Diabetes mellitus due to underlying condition without complications] Onset: 4 Chronic Disorders of lipid metabolism (2 sources) Mixed hyperlipidemia; Translations: [Mixed hyperlipidemia] Onset: 5 Chronic Disorders usually diagnosed in infancy, childhood, or adolescence (3 sources) Adult attention deficit hyperactivity disorder ; Translations: [Other specified behavioral and emotional disorders with onset usually occurring in childhood and adolescence] Chronic E Codes: Fall (14 sources) Fall; Translations: [Unspecified fall, initial encounter] 12-24-2022 Episodic Essential hypertension (14 sources) Hypertensive disorder; Translations: [Essential (primary) hypertension] Onset: 4 10-27-2023 Chronic Fluid and electrolyte disorders (16 sources) Hyponatremia; Translations: [Hypo-osmolality and hyponatremia] Onset: 3 12-24-2022 Episodic Genitourinary symptoms and ill-defined conditions (11 sources) Increased frequency of urination; Translations: [Frequency [...] [Depressive disorder] Onset: 4 05-08-2023 Chronic Osteoarthritis (12 sources) Osteoarthritis; Translations: [Unspecified osteoarthritis, unspecified site] Onset: 4 05-08-2023 Chronic Other acquired deformities (13 sources) Contracture of joint of hand; Translations: [Contracture, unspecified hand] Chronic Other aftercare (1 source) Other [facility] (current) drug therapy; Translations: [[employer] CURRENT DRUG THERAPY] Onset: 3 Episodic Other [...] sources) Pleuritic pain; Translations: [Pleurodynia] Episodic Other lower respiratory disease (3 sources) Other forms of dyspnea; Translations: [Other forms of dyspnea] Onset: 4 Episodic Other non-traumatic joint disorders (6 sources) Polyarthritis, unspecified; Translations: [POLYARTHRITIS UNSPECIFIED] Onset: 2 Chronic Other non-traumatic joint disorders (13 sources) Arthralgia of the pelvic region and thigh; Translations: [Pain in right hip] Episodic Other non-traumatic joint disorders (2 sources) Pain in right hip joint; Translations: [Pain in right hip] Episodic Other non-traumatic joint disorders (12 sources) Hip pain; Translations: [Pain in right hip] 12-24-2022 Episodic Other nutritional; endocrine; and metabolic disorders (2 sources) Morbid obesity; Translations: [Morbid (severe) obesity due to excess calories] Onset: 4 Chronic Other nutritional; endocrine; and metabolic disorders (2 sources) Body mass index 40+ - severely obese; Translations: [Body mass index (BMI) 40.0-44.9, adult] Chronic Other nutritional; endocrine; and metabolic disorders (2 sources) Morbid (severe) obesity due to excess calories; Translations: [Morbid (severe) obesity due to excess calories] Onset: 4 Chronic Other nutritional; endocrine; and metabolic disorders (12 sources) Excessive thirst; Translations: [Polydipsia] Episodic Other nutritional; endocrine; and metabolic disorders (1 source) Polydipsia; Translations: [Polydipsia] Episodic Other screening for suspected conditions (not mental disorders or infectious disease) (20 sources) Raised cardiac enzyme or marker; Translations: [...] [Parkinson's disease] Chronic Phlebitis; thrombophlebitis and thromboembolism (15 sources) H/O: Deep vein thrombosis; Translations: [Personal history of other venous thrombosis and embolism] Onset: 3 12-24-2022 Episodic Pulmonary heart disease (15 sources) Pulmonary embolism; [...] neoplasm of breast] Episodic Residual codes; unclassified (8 sources) Edema of lower extremity; Translations: [Localized edema] 08-19-2023 Episodic Residual codes; unclassified (3 sources) Localized edema; Translations: [Edema] 08-19-2023 Episodic Rheumatoid arthritis and related disease (20 sources) Rheumatoid arthritis; Translations: [Rheumatoid arthritis, unspecified] Chronic Spondylosis; intervertebral disc disorders; other back problems (20 sources) Low back pain; Translations: [Lumbar pain] Onset: 5 Episodic Tuberculosis (1 source) Tuberculosis of spine Episodic Unclassified (1 source) Supraventricular tachycardia, unspecified; Translations: [Supraventricular tachycardia, unspecified] Onset: 2 Past or Other Problems Problem Classification Problem Date Documented Date Episodic/Chronic Acute bronchitis (2 sources) Acute bronchitis; Translations: [Acute bronchitis, unspecified] Onset: 07-13-2015 Episodic Cardiac dysrhythmias (2 sources) Tachycardia; Translations: [Tachycardia, unspecified] Onset: 07-13-2015 Episodic Coronary atherosclerosis and other heart disease (2 sources) Presence of aortocoronary bypass graft; Translations: [Presence of aortocoronary bypass graft] Onset: 12-05-2023 Episodic Diabetes mellitus without complication (2 sources) Hyperglycemia; Translations: [Hyperglycemia, unspecified] Onset: 04-11-2016 Episodic Nonspecific chest pain (2 sources) Chest pain, unspecified; Translations: [Chest pain, unspecified] Onset: 12-05-2023 Episodic Other hematologic conditions (1 source) Other specified abnormalities of plasma proteins; Translations: [Other specified abnormalities of plasma proteins] Onset: 12-24-2022 Episodic Other non-traumatic joint disorders (6 sources) Pain in right hip; Translations: [Pain in joint, pelvic region and thigh] Onset: 12-24-2022 Episodic Other non-traumatic joint disorders (2 sources) Joint pain; Translations: [Pain in unspecified joint] Onset: 04-11-2016 Episodic Residual codes; unclassified (2 sources) Insomnia; Translations: [Insomnia, unspecified] Onset: 09-10-2018 Episodic Unclassified (2 sources) Lumbar pain M54.50 Unclassified (4 sources) Depressive disorder F32.A Unclassified (1 source) Supraventricular tachycardia, unspecified; Translations: [Supraventricular tachycardia, unspecified] Onset: 12-05-2023 Results Test Name Value Interpretation Reference Range Facility 37on 05-26-2024 37 *We are increasing spironolactone to 25mg daily *Have lab work done around 06/02/2024 to check kidney function with the increase in spironolactone. *We will call you in 1-2 weeks to see how you are feeling. *Follow-up after event monitor comes off. [facility] 37on 05-20-2024 37 [facility] Estimated glomerular filtrat ion rate (GFR) non- Americanon 05-20-2024 GFR/1.73 sq M.predicted among non-blacks MDRD (S/P/Bld) [Vol rate/Area] Estimated glomerular filtration rate (GFR) non- Low >=60 mL/min/1.73 m 2 [facility] - Chemistry and C hemistry - challengeon 05-20-2024 Calcium [Mass/Vol] 9.4 mg/dL 8.5-10.1 [facility] Chloride [Moles/Vol] 102 mmol/L 98-107 [facility] CO2 [Moles/Vol] 30.4 mmol/L 21.0-32.0 [facility] Creatinine [Mass/Vol] 1.12 mg/dL High 0.55-1.02 [facility] GFR/1.73 sq M.predicted MDRD (S/P/Bld) [Vol rate/Area] 60 mL/min/{1.73_m2} >=60 mL/min/1.73 m 2 [facility] Glucose [Mass/Vol] 158 mg/dL High 74-106 [facility] Potassium [Moles/Vol] 3.8 mmol/L 3.5-5.1 [facility] Sodium [Moles/Vol] 140 mmol/L 136-145 [facility] Urea nitrogen [Mass/Vol] 22.0 mg/dL High 7.0-18.0 [facility] Urea nitrogen/Creatinine [Mass ratio] 19.6 mg/mg [facility] Serum or plasma anion gap de terminationon 05-20-2024 Anion gap [Moles/Vol] Serum or plasma an ion gap determination [facility] Telephoneon 05-18-2024 Telephone Normal [facility] Documentationon 05-17-2024 Documentation Normal [facility] Telephoneon 05-17-2024 Telephone Normal [facility] 36on 05-15-2024 36 Normal [facility] Telephoneon 05-15-2024 Telephone Normal [facility] 30on 05-14-2024 30 Normal [facility] 30 [facility] BASIC METABOLIC PANELon 04-25 Anion gap [Moles/Vol] 14 mmol/L Normal 7-20 [facility] Comment on above: Performed By: #### L [id number] ####[facility] ([facility])[address] [place] [address] Calcium [Mass/Vol] 9.5 mg/dL Normal 8.6-10.3 [facility] Comment on above: Performed By: #### L [id number] ####[facility] ([facility])[address] [place] [address] Chloride [Moles/Vol] 104 mmol/L Normal 98-107 [facility] Comment on above: Performed By: #### L [id number] ####[facility] ([facility])[address] [place] [address] CO2 [Moles/Vol] 23 mmol/L Normal 21-31 [facility] Comment on above: Performed By: #### L [id number] ####[facility] ([facility])[address] [place] [address] Creatinine [Mass/Vol] 1.04 mg/dL Normal 0.60-1.20 [facility] Comment on above: Performed By: #### L [id number] ####[facility] ([facility])[address] [place] [place] [address] GLOMERULAR FILTRATION RATE ML/MIN/1.73 SQ M.PREDICTED 60.8 mL/min/1.73m*2 Normal >60.0 [facility] Comment on above: Result Comment: [facility]???s estimated glomerular filtration rate (eGFR) will no longer include consideration of race in its calculation. The National Kidney Foundation???s eGFR Task Force developed new recommendations for the estimation of the glomerular filtration rate in the [place] They recommend immediate implementation of the new equation refit without the race variable in all laboratories because the calculation does not include race. In addition to not including race in the calculation and reporting, it included diversity in its development, and has acceptable performance characteristics and potential consequences that do not disproportionately affect any one group of individuals. Performed By: #### L [id number] ####[facility] ([facility])[address] [place] [address] Glucose [Mass/Vol] 128 mg/dL High 70-100 [facility] Comment on above: Performed By: #### L [id number] ####[facility] ([facility])[address] [place] [address] Potassium [Moles/Vol] 4.5 mmol/L Normal 3.5-5.1 [facility] Comment on above: Performed By: #### L [id number] ####[facility] ([facility])[address] [place] [address] Sodium [Moles/Vol] 136 mmol/L Normal 136-145 [facility] Comment on above: Performed By: #### L [id number] ####[facility] ([facility])[address] [place] [address] Urea nitrogen [Mass/Vol] 23 mg/dL Normal 7-25 [facility] Comment on above: Performed By: #### L [id number] ####[facility] ([facility])[address] [place] [address] UREA NITROGEN/CREATININE (MASS RATIO) IN SER/PLAS 22.1 Normal [facility] Comment on above: Performed By: #### L [id number] ####[facility] ([facility])[address] [place] [address] CBCon 05-14-2024 Erythrocyte distribution width (RBC) [Ratio] 14.3 % Normal 11.5-15.0 [facility] Comment on above: Performed By: #### L [id number] ####[facility] ([facility])[address] [place] [place] [address] ERYTHROCYTE MEAN CORPUSCULAR HEMOGLOBIN CONCENTRATION (G/DL) BY AUTOMATED 31.9 g/dL Low 32.0-35.0 [facility] Comment on above: Performed By: #### L [id number] ####[facility] ([facility])[address] [place] [address] Hematocrit (Bld) [Volume fraction] 45.8 % Normal 36.0-48.0 [facility] Comment on above: Performed By: #### L [id number] ####[facility] ([facility])[address] [place] [address] Hemoglobin (Bld) [Mass/Vol] 14.6 g/dL Normal 12.0-15.0 [facility] Comment on above: Performed By: #### L [id number] ####[facility] ([facility])[address] [place] [address] MCH (RBC) [Entitic mass] 29.1 pg Normal 27.0-33.0 [facility] Comment on above: Performed By: #### L [id number] ####[facility] ([facility])[address] [place] [address] MCV (RBC) [Entitic vol] 91.4 fL Normal 82.0-98.0 [facility] Comment on above: Performed By: #### L [id number] ####[facility] ([facility])[address] [place] [address] PLATELETS (10*3/UL) IN BLOOD AUTOMATED COUNT 256 10*3/uL Normal 150-400 [facility] Comment on above: Performed By: #### L [id number] ####[facility] ([facility])[address] [place] [address] RBC (Bld) [#/Vol] 5.01 10*6/uL High 3.80-5.00 [facility] Comment on above: Performed By: #### L [id number] ####[facility] ([facility])[address] [place] [place] [address] WBC (Bld) [#/Vol] 6.81 10*3/uL Normal 4.00-10.60 [facility] Comment on above: Performed By: #### L [id number] ####[facility] ([facility])[address] [place] [address] DSon 05-14-2024 DS [facility] POCT GLUCOSE METER UNSOLICIT ED RESULTSon 05-14-2024 Glucose [Mass/Vol] 206 mg/dL High 70-105 [facility] Comment on above: Order Comment: Waive d Testing in the ED is performed under the ED CLIA certificate #[id number]. Result Comment: dcun dic Performed By: #### L [id number] ####[facility] ([facility])[address] [place] [address] Glucose [Mass/Vol] 146 mg/dL High 70-105 [facility] Comment on above: Order Comment: Waive d Testing in the ED is performed under the ED CLIA certificate #[id number]. Result Comment: [email or web address] Performed By: #### L [id number] ####[facility] ([facility])[address] [place] [address] 30on 05-13-2024 30 [facility] 30 [facility] 30 [facility] BASIC METABOLIC PANELon 04-25 Anion gap [Moles/Vol] 13 mmol/L Normal 7-20 [facility] Comment on above: Performed By: #### L [id number] ####[facility] ([facility])[address] [place] [place] [address] Calcium [Mass/Vol] 9.1 mg/dL Normal 8.6-10.3 [facility] Comment on above: Performed By: #### L [id number] ####[facility] ([facility])[address] [place] [place] [address] Chloride [Moles/Vol] 99 mmol/L Normal 98-107 [facility] Comment on above: Performed By: #### L [id number] ####[facility] ([facility])[address] [place] [address] CO2 [Moles/Vol] 29 mmol/L Normal 21-31 [facility] Comment on above: Performed By: #### L [id number] ####[facility] ([facility])[address] [place] [address] Creatinine [Mass/Vol] 1.29 mg/dL High 0.60-1.20 [facility] Comment on above: Performed By: #### L [id number] ####[facility] ([facility])[address] [place] [place] [address] GLOMERULAR FILTRATION RATE ML/MIN/1.73 SQ M.PREDICTED 46.9 mL/min/1.73m*2 Low >60.0 [facility] Comment on above: Result Comment: [facility]???s estimated glomerular filtration rate (eGFR) will no longer include consideration of race in its calculation. The National Kidney Foundation???s eGFR Task Force developed new recommendations for the estimation of the glomerular filtration rate in the [place] They recommend immediate implementation of the new equation refit without the race variable in all laboratories because the calculation does not include race. In addition to not including race in the calculation and reporting, it included diversity in its development, and has acceptable performance characteristics and potential consequences that do not disproportionately affect any one group of individuals. Performed By: #### L [id number] ####[facility] ([facility])[address] [place] [place] [address] Glucose [Mass/Vol] 135 mg/dL High 70-100 [facility] Comment on above: Performed By: #### L [id number] ####[facility] ([facility])[address] [place] [address] Potassium [Moles/Vol] 3.5 mmol/L Normal 3.5-5.1 [facility] Comment on above: Performed By: #### L [id number] ####[facility] ([facility])[address] [place] [address] Sodium [Moles/Vol] 137 mmol/L Normal 136-145 [facility] Comment on above: Performed By: #### L [id number] ####[facility] ([facility])[address] [place] [address] Urea nitrogen [Mass/Vol] 19 mg/dL Normal 7-25 [facility] Comment on above: Performed By: #### L [id number] ####[facility] ([facility])[address] [place] [address] UREA NITROGEN/CREATININE (MASS RATIO) IN SER/PLAS 14.7 Normal [facility] Comment on above: Performed By: #### L [id number] ####[facility] ([facility])[address] [place] [address] POCT GLUCOSE METER UNSOLICIT ED RESULTSon 05-13-2024 Glucose [Mass/Vol] 161 mg/dL High 70-105 [facility] Comment on above: Order Comment: Waive d Testing in the ED is performed under the ED CLIA certificate #[id number]. Result Comment: wcha se Performed By: #### L [id number] ####[facility] ([facility])[address] [place] [address] Glucose [Mass/Vol] 149 mg/dL High 70-105 [facility] Comment on above: Order Comment: Waive d Testing in the ED is performed under the ED CLIA certificate #[id number]. Result Comment: cfet [email or web address] Performed By: #### L [id number] ####[facility] ([facility])[address] [place] [address] Glucose [Mass/Vol] 183 mg/dL High 70-105 [facility] Comment on above: Order Comment: Waive d Testing in the ED is performed under the ED CLIA certificate #[id number]. Result Comment: cfet [email or web address] Performed By: #### L [id number] ####[facility] ([facility])[address] [place] [place] [address] Glucose [Mass/Vol] 141 mg/dL High 70-105 [facility] Comment on above: Order Comment: Waive d Testing in the ED is performed under the ED CLIA certificate #[id number]. Result Comment: cfet ter3 Performed By: #### L [id number] ####[facility] ([facility])[address] [place] [address] 30on 05-12-2024 30 Normal [facility] 30 Normal [facility] 30 Normal [facility] 30 Normal [facility] APTTon 05-12-2024 ACTIVATED PARTIAL THROMBOPLASTIN TIME IN PPP BY COAGULATION ASSAY 49.3 Seconds High 25.0-35.0 [facility] Comment on above: Order Comment: Check aPTT every 6 hours while on heparin infusion, or per protocol. Result Comment: Clin ical significance of the APTT is questionable in the presence of heparin. Performed By: #### L [id number] ####[facility] ([facility])[address] [place] [address] CBCon 05-12-2024 Erythrocyte distribution width (RBC) [Ratio] 13.9 % Normal 11.5-15.0 [facility] Comment on above: Performed By: #### L [id number] ####[facility] ([facility])[address] [place] [place] [address] ERYTHROCYTE MEAN CORPUSCULAR HEMOGLOBIN CONCENTRATION (G/DL) BY AUTOMATED 32.5 g/dL Normal 32.0-35.0 [facility] Comment on above: Performed By: #### L [id number] ####[facility] ([facility])[address] [facility] [place] [address] Hematocrit (Bld) [Volume fraction] 41.8 % Normal 36.0-48.0 [facility] Comment on above: Performed By: #### L [id number] ####[facility] ([facility])[address] [place] [address] Hemoglobin (Bld) [Mass/Vol] 13.6 g/dL Normal 12.0-15.0 [facility] Comment on above: Performed By: #### L [id number] ####[facility] ([facility])[address] [place] [address] MCH (RBC) [Entitic mass] 28.9 pg Normal 27.0-33.0 [facility] Comment on above: Performed By: #### L [id number] ####[facility] ([facility])[address] [place] [address] MCV (RBC) [Entitic vol] 88.9 fL Normal 82.0-98.0 [facility] Comment on above: Performed By: #### L [id number] ####[facility] ([facility])[address] [place] [address] PLATELETS (10*3/UL) IN BLOOD AUTOMATED COUNT 254 10*3/uL Normal 150-400 [facility] Comment on above: Performed By: #### L [id number] ####[facility] ([facility])[address] [place] [address] RBC (Bld) [#/Vol] 4.70 10*6/uL Normal 3.80-5.00 [facility] Comment on above: Performed By: #### L [id number] ####[facility] ([facility])[address] [place] [address] WBC (Bld) [#/Vol] 6.18 10*3/uL Normal 4.00-10.60 [facility] Comment on above: Performed By: #### L [id number] ####[facility] ([facility])[address] [place] [address] CONSULTon 05-12-2024 CONSULT Normal [facility] CONSULT Normal [facility] POCT GLUCOSE METER UNSOLICIT ED RESULTSon 05-12-2024 Glucose [Mass/Vol] 165 mg/dL High 70-105 [facility] Comment on above: Order Comment: Waive d Testing in the ED is performed under the ED CLIA certificate #[id number]. Result Comment: wcha se Performed By: #### L [id number] ####[facility] ([employer])[address] [address] Glucose [Mass/Vol] 183 mg/dL High 70-105 [facility] Comment on above: Order Comment: Waive d Testing in the ED is performed under the ED CLIA certificate #[id number]. Result Comment: cfet [email or web address] Performed By: #### L [id number] ####[facility] ([facility])[address] [place] [address] Glucose [Mass/Vol] 152 mg/dL High 70-105 [facility] Comment on above: Order Comment: Waive d Testing in the ED is performed under the ED CLIA certificate #[id number]. Result Comment: bflo od Performed By: #### L [id number] ####[facility] ([employer])[address] [place] [address] Glucose [Mass/Vol] 189 mg/dL High 70-105 [facility] Comment on above: Order Comment: Waive d Testing in the ED is performed under the ED CLIA certificate #[id number]. Result Comment: bflo od Performed By: #### L [id number] ####[facility] ([employer])[address] [place] [address] RESPIRATORY VIRUS PCR PANELo n 05-12-2024 ADENOVIRUS DETECTION BY PCR Not detected Normal Not Detected [facility] Comment on above: Order Comment: Testi ng methodology is a multiplexed nucleic acid test intended for the simultaneous qualitative detection and differentiation of nucleic acids from multiple viral and bacterial respiratory organisms in nasopharyngeal swabs (ECHO VASCULAR TECHNOLOGIST). Performed By: #### L [id number] ####[facility] ([employer])[address] [address] B. PARAPERTUSSIS DNA Not detected Normal Not Detected [facility] Comment on above: Order Comment: Testi ng methodology is a multiplexed nucleic acid test intended for the simultaneous qualitative detection and differentiation of nucleic acids from multiple viral and bacterial respiratory organisms in nasopharyngeal swabs (ECHO VASCULAR TECHNOLOGIST). Performed By: #### L [id number] ####[facility] ([facility])[address] [place] [address] BORDETELLA PERTUSSIS DNA PRESENCE IN UNSPECIFIED SPECIMEN BY DE* Not detected Normal Not Detected [facility] Comment on above: Order Comment: Testi ng methodology is a multiplexed nucleic acid test intended for the simultaneous qualitative detection and differentiation of nucleic acids from multiple viral and bacterial respiratory organisms in nasopharyngeal swabs (ECHO VASCULAR TECHNOLOGIST). Performed By: #### L [id number] ####[facility] ([facility])[address] [place] [address] CHLAMYDOPHILA PNEUMONIAE Not detected Normal Not Detected [facility] Comment on above: Order Comment: Testi ng methodology is a multiplexed nucleic acid test intended for the simultaneous qualitative detection and differentiation of nucleic acids from multiple viral and bacterial respiratory organisms in nasopharyngeal swabs (ECHO VASCULAR TECHNOLOGIST). Performed By: #### L [id number] ####[facility] ([facility])[address] [place] [address] CORONAVIRUS 229E Not detected Normal Not Detected [facility] Comment on above: Order Comment: Testi ng methodology is a multiplexed nucleic acid test intended for the simultaneous qualitative detection and differentiation of nucleic acids from multiple viral and bacterial respiratory organisms in nasopharyngeal swabs (ECHO VASCULAR TECHNOLOGIST). Performed By: #### L [id number] ####[facility] ([facility])[address] [place] [address] CORONAVIRUS [id number] Not detected Normal Not Detected [facility] Comment on above: Order Comment: Testi ng methodology is a multiplexed nucleic acid test intended for the simultaneous qualitative detection and differentiation of nucleic acids from multiple viral and bacterial respiratory organisms in nasopharyngeal swabs (ECHO VASCULAR TECHNOLOGIST). Performed By: #### L [id number] ####[facility] ([facility])[address] [place] [address] CORONAVIRUS [id number] Not detected Normal Not Detected [facility] Comment on above: Order Comment: Testi ng methodology is a multiplexed nucleic acid test intended for the simultaneous qualitative detection and differentiation of nucleic acids from multiple viral and bacterial respiratory organisms in nasopharyngeal swabs (ECHO VASCULAR TECHNOLOGIST). Performed By: #### L [id number] ####[facility] ([facility])[address] [place] [address] CORONAVIRUS [id number] Not detected Normal Not Detected [facility] Comment on above: Order Comment: Testi ng methodology is a multiplexed nucleic acid test intended for the simultaneous qualitative detection and differentiation of nucleic acids from multiple viral and bacterial respiratory organisms in nasopharyngeal swabs (ECHO VASCULAR TECHNOLOGIST). Performed By: #### L [id number] ####[facility] ([facility])[address] [place] [address] HUMAN METAPNEUMOVIRUS Not detected Normal Not Detected [facility] Comment on above: Order Comment: Testi ng methodology is a multiplexed nucleic acid test intended for the simultaneous qualitative detection and differentiation of nucleic acids from multiple viral and bacterial respiratory organisms in nasopharyngeal swabs (ECHO VASCULAR TECHNOLOGIST). Performed By: #### L [id number] ####[facility] ([facility])[address] [place] [address] HUMAN RHINOVIRUS+ENTEROVIRUS Not detected Normal Not Detected [facility] Comment on above: Order Comment: Testi ng methodology is a multiplexed nucleic acid test intended for the simultaneous qualitative detection and differentiation of nucleic acids from multiple viral and bacterial respiratory organisms in nasopharyngeal swabs (ECHO VASCULAR TECHNOLOGIST). Performed By: #### L [id number] ####[facility] ([facility])[address] [place] [address] INFLUENZA A Not detected Normal Not Detected [facility] Comment on above: Order Comment: Testi ng methodology is a multiplexed nucleic acid test intended for the simultaneous qualitative detection and differentiation of nucleic acids from multiple viral and bacterial respiratory organisms in nasopharyngeal swabs (ECHO VASCULAR TECHNOLOGIST). Performed By: #### L [id number] ####[facility] ([facility])[address] [place] [address] INFLUENZA B Not detected Normal Not Detected [facility] Comment on above: Order Comment: Testi ng methodology is a multiplexed nucleic acid test intended for the simultaneous qualitative detection and differentiation of nucleic acids from multiple viral and bacterial respiratory organisms in nasopharyngeal swabs (ECHO VASCULAR TECHNOLOGIST). Performed By: #### L [id number] ####[facility] ([facility])[address] [place] [address] MYCOPLASMA PNEUMONIAE Not detected Normal Not Detected [facility] Comment on above: Order Comment: Testi ng methodology is a multiplexed nucleic acid test intended for the simultaneous qualitative detection and differentiation of nucleic acids from multiple viral and bacterial respiratory organisms in nasopharyngeal swabs (ECHO VASCULAR TECHNOLOGIST). Performed By: #### L [id number] ####[facility] ([facility])[address] [place] [address] PARAINFLUENZA 1 Not detected Normal Not Detected [facility] Comment on above: Order Comment: Testi ng methodology is a multiplexed nucleic acid test intended for the simultaneous qualitative detection and differentiation of nucleic acids from multiple viral and bacterial respiratory organisms in nasopharyngeal swabs (ECHO VASCULAR TECHNOLOGIST). Performed By: #### L [id number] ####[facility] ([facility])[address] [place] [address] PARAINFLUENZA 2 Not detected Normal Not Detected [facility] Comment on above: Order Comment: Testi ng methodology is a multiplexed nucleic acid test intended for the simultaneous qualitative detection and differentiation of nucleic acids from multiple viral and bacterial respiratory organisms in nasopharyngeal swabs (ECHO VASCULAR TECHNOLOGIST). Performed By: #### L [id number] ####[facility] ([facility])[address] [place] [address] PARAINFLUENZA 3 Not detected Normal Not Detected [facility] Comment on above: Order Comment: Testi ng methodology is a multiplexed nucleic acid test intended for the simultaneous qualitative detection and differentiation of nucleic acids from multiple viral and bacterial respiratory organisms in nasopharyngeal swabs (ECHO VASCULAR TECHNOLOGIST). Performed By: #### L [id number] ####[facility] ([facility])[address] [place] [address] PARAINFLUENZA 4 Not detected Normal Not Detected [facility] Comment on above: Order Comment: Testi ng methodology is a multiplexed nucleic acid test intended for the simultaneous qualitative detection and differentiation of nucleic acids from multiple viral and bacterial respiratory organisms in nasopharyngeal swabs (ECHO VASCULAR TECHNOLOGIST). Performed By: #### L [id number] ####[facility] ([facility])[address] [place] [address] RESP SYNCYTIAL VIRUS Not detected Normal Not Detected [facility] Comment on above: Order Comment: Testi ng methodology is a multiplexed nucleic acid test intended for the simultaneous qualitative detection and differentiation of nucleic acids from multiple viral and bacterial respiratory organisms in nasopharyngeal swabs (ECHO VASCULAR TECHNOLOGIST). Performed By: #### L [id number] ####[facility] ([facility])[address] [address] SARS-CoV-2 (COVID-19) RNA CITLALY+probe Ql (Unsp spec) Not detected Normal Not Detected [facility] Comment on above: Order Comment: Testi ng methodology is a multiplexed nucleic acid test intended for the simultaneous qualitative detection and differentiation of nucleic acids from multiple viral and bacterial respiratory organisms in nasopharyngeal swabs (ECHO VASCULAR TECHNOLOGIST). Performed By: #### L [id number] ####[facility] ([facility])[address] [place] [address] TROPONIN Ion 05-12-2024 Troponin I.cardiac [Mass/Vol] 0.03 ng/mL Normal 0.00-0.04 [facility] Comment on above: Performed By: #### L [id number] ####[facility] ([facility])[address] [place] [address] Troponin I.cardiac [Mass/Vol] 0.04 ng/mL Normal 0.00-0.04 [facility] Comment on above: Performed By: #### L [id number] ####[facility] ([facility])[address] [place] [address] URINALYSIS MICROSCOPIC WITH REFLEX CULTUREon 05-12-2024 RBC (#/HPF) IN URINE SEDIMENT 3-5 Abnormal None Seen, 0-2 [facility] Comment on above: Performed By: #### L [id number] ####[facility] ([facility])[address] [place] [address] SQUAMOUS EPITHELIAL CELLS (#/LPF) IN URINE SEDIMENT Moderate Abnormal None Seen, Occasional, Few [facility] Comment on above: Performed By: #### L [id number] ####[facility] ([facility])[address] [place] [address] WBC (LEUKOCYTE) (#/HPF) IN URINE SEDIMENT 6-10 Abnormal None Seen, 0-2 [facility] Comment on above: Performed By: #### L [id number] ####[facility] ([facility])[address] [place] [address] URINALYSIS WITH REFLEX CULTU REon 05-12-2024 BILIRUBIN, TOTAL PRESENCE IN URINE Negative Normal Negative [facility] Comment on above: Performed By: #### L [id number] ####[facility] ([facility])[address] [place] [address] Clarity (U) Clear Normal Clear [facility] Comment on above: Performed By: #### L [id number] ####[facility] ([facility])[address] [place] [address] Color (U) Light-Yellow Normal Colorless, Yellow, Light-Yello w [facility] Comment on above: Performed By: #### L [id number] ####[facility] ([facility])[address] [place] [address] GLUCOSE (MG/DL) IN URINE Normal Normal Normal [facility] Comment on above: Performed By: #### L [id number] ####[facility] ([facility])[address] [place] [address] HEMOGLOBIN PRESENCE IN URINE Negative Normal Negative [facility] Comment on above: Performed By: #### L [id number] ####[facility] ([facility])[address] [place] [address] Ketones Ql (U) Negative Normal Negative [facility] Comment on above: Performed By: #### L [id number] ####[facility] ([facility])[address] [place] [address] LEUKOCYTE ESTERASE PRESENCE IN URINE BY TEST STRIP Small Abnormal Negative [facility] Comment on above: Performed By: #### L [id number] ####[facility] ([facility])[address] [place] [address] NITRITE PRESENCE IN URINE Negative Normal Negative [facility] Comment on above: Performed By: #### L [id number] ####[facility] ([facility])[address] [place] [address] pH (U) 6.0 [pH] Normal 5.0-8.0 [facility] Comment on above: Performed By: #### L [id number] ####[facility] ([facility])[address] [place] [address] Protein (U) [Mass/Vol] Negative Normal Negative [facility] Comment on above: Performed By: #### L [id number] ####[facility] ([facility])[address] [place] [address] Specific gravity (U) [Rel density] 1.015 Normal 1.010-1.030 [facility] Comment on above: Performed By: #### L [id number] ####[facility] ([facility])[address] [place] [address] UROBILINOGEN (MG/DL) IN URINE Normal Normal Normal [facility] Comment on above: Performed By: #### L [id number] ####[facility] ([facility])[address] [place] [address] APTTon 05-11-2024 ACTIVATED PARTIAL THROMBOPLASTIN TIME IN PPP BY COAGULATION ASSAY 27.4 Seconds Normal 25.0-35.0 [facility] Comment on above: Order Comment: Basel ine aPTT before initiating heparin infusion. Result Comment: Clin ical significance of the APTT is questionable in the presence of heparin. Performed By: #### L [id number] ####[facility] ([facility])[address] [place] [address] Activated partial thrombopla stin time (aPTT) in platelet poor plasma by coagulation aon 05-11-2024 aPTT Coag (PPP) [Time] Activated partial thromboplastin time (aPTT) in platelet poor plasma by coagulation a 22.3-36.2 [facility] B-TYPE NATRIURETIC PEPTIDEon 05-11-2024 Natriuretic peptide B (Bld) [Mass/Vol] 537 pg/mL High 0-100 [facility] Comment on above: Performed By: #### L [id number] ####[facility] ([facility])[address] [place] [address] Basophils Auto (Bld) [#/Vol] on 05-11-2024 Basophils (Bld) [#/Vol] Automated basophil count 0.0-0.1 [facility] Basophils/100 WBC Auto (Bld) on 05-11-2024 Basophils/100 WBC (Bld) Automated basophil % 0.2-2.0 [facility] CBC WITH AUTO DIFFERENTIALon 05-11-2024 Basophils (Bld) [#/Vol] 0.10 10*3/uL Normal 0.00-0.20 [facility] Comment on above: Performed By: #### L [id number] ####[facility] ([facility])[address] [place] [address] Basophils/100 WBC (Bld) 1.3 % High 0.0-1.0 [facility] Comment on above: Performed By: #### L [id number] ####[facility] ([facility])[address] [place] [address] Eosinophils (Bld) [#/Vol] 0.31 10*3/uL Normal 0.00-0.50 [facility] Comment on above: Performed By: #### L [id number] ####[facility] ([facility])[address] [place] [address] Eosinophils/100 WBC (Bld) 4.0 % Normal 0.0-6.0 [facility] Comment on above: Performed By: #### L [id number] ####[facility] ([facility])[address] [place] [address] Erythrocyte distribution width (RBC) [Ratio] 13.9 % Normal 11.5-15.0 [facility] Comment on above: Performed By: #### L [id number] ####[facility] ([facility])[address] [place] [address] ERYTHROCYTE MEAN CORPUSCULAR HEMOGLOBIN CONCENTRATION (G/DL) BY AUTOMATED 33.7 g/dL Normal 32.0-35.0 [facility] Comment on above: Performed By: #### L [id number] ####[facility] ([facility])[address] [place] [place] [address] Hematocrit (Bld) [Volume fraction] 41.6 % Normal 36.0-48.0 [facility] Comment on above: Performed By: #### L [id number] ####[facility] ([facility])[address] [place] [place] [address] Hemoglobin (Bld) [Mass/Vol] 14.0 g/dL Normal 12.0-15.0 [facility] Comment on above: Performed By: #### L [id number] ####[facility] ([facility])[address] [place] [place] [address] Immature granulocytes (Bld) [#/Vol] 0.03 10*3/uL Normal 0.00-0.20 [facility] Comment on above: Performed By: #### L [id number] ####[facility] ([facility])[address] [place] [place] [address] Immature granulocytes/100 WBC (Bld) 0.4 % Normal 0.0-1.0 [facility] Comment on above: Performed By: #### L [id number] ####[facility] ([facility])[address] [place] [address] Lymphocytes (Bld) [#/Vol] 2.25 10*3/uL Normal 1.20-4.00 [facility] Comment on above: Performed By: #### L [id number] ####[facility] ([facility])[address] [place] [place] [address] Lymphocytes/100 WBC (Bld) 29.3 % Normal 20.0-45.0 [facility] Comment on above: Performed By: #### L [id number] ####[facility] ([facility])[address] [place] [place] [address] MCH (RBC) [Entitic mass] 28.9 pg Normal 27.0-33.0 [facility] Comment on above: Performed By: #### L [id number] ####[facility] ([facility])[address] [place] [address] MCV (RBC) [Entitic vol] 86.0 fL Normal 82.0-98.0 [facility] Comment on above: Performed By: #### L [id number] ####[facility] ([facility])[address] [place] [place] [address] Monocytes (Bld) [#/Vol] 0.50 10*3/uL Normal 0.10-1.00 [facility] Comment on above: Performed By: #### L [id number] ####[facility] ([facility])[address] [place] [place] [address] Monocytes/100 WBC (Bld) 6.5 % Normal 5.0-12.0 [facility] Comment on above: Performed By: #### L [id number] ####[facility] ([facility])[address] [place] [address] Neutrophils (Bld) [#/Vol] 4.50 10*3/uL Normal 1.60-7.60 [facility] Comment on above: Performed By: #### L [id number] ####[facility] ([facility])[address] [place] [place] [address] Neutrophils/100 WBC (Bld) 58.5 % Normal 40.0-72.0 [facility] Comment on above: Performed By: #### L [id number] ####[facility] ([facility])[address] [place] [place] [address] NRBC (PER 100 WBCS) BY AUTOMATED COUNT 0.0 % Normal 0 [facility] Comment on above: Performed By: #### L [id number] ####[facility] ([facility])[address] [place] [address] PLATELETS (10*3/UL) IN BLOOD AUTOMATED COUNT 270 10*3/uL Normal 150-400 [facility] Comment on above: Performed By: #### L [id number] ####[facility] ([facility])[address] [place] [place] [address] RBC (Bld) [#/Vol] 4.84 10*6/uL Normal 3.80-5.00 [facility] Comment on above: Performed By: #### L [id number] ####[facility] ([facility])[address] [place] [place] [address] WBC (Bld) [#/Vol] 7.69 10*3/uL Normal 4.00-10.60 [facility] Comment on above: Performed By: #### L [id number] ####[facility] ([facility])[address] [place] [place] [address] COMPREHENSIVE METABOLIC PANE Kirit 05-11-2024 Albumin [Mass/Vol] 4.1 g/dL Normal 3.5-5.7 [facility] Comment on above: Performed By: #### L [id number] ####[facility] ([facility])[address] [place] [place] [address] ALP [Catalytic activity/Vol] 128 U/L High 34-104 [facility] Comment on above: Performed By: #### L [id number] ####[facility] ([facility])[address] [place] [address] ALT [Catalytic activity/Vol] 13 U/L Normal 7-52 [facility] Comment on above: Performed By: #### L [id number] ####[facility] ([facility])[address] [place] [place] [address] Anion gap [Moles/Vol] 13 mmol/L Normal 7-20 [facility] Comment on above: Performed By: #### L [id number] ####[facility] ([facility])[address] [place] [address] AST [Catalytic activity/Vol] 18 U/L Normal 13-39 [facility] Comment on above: Performed By: #### L [id number] ####[facility] ([facility])[address] [place] [address] Bilirubin [Mass/Vol] 0.4 mg/dL Normal 0.3-1.0 [facility] Comment on above: Performed By: #### L [id number] ####[facility] ([facility])[address] [place] [place] [address] Calcium [Mass/Vol] 8.9 mg/dL Normal 8.6-10.3 [facility] Comment on above: Performed By: #### L [id number] ####[facility] ([facility])[address] [place] [address] Chloride [Moles/Vol] 98 mmol/L Normal 98-107 [facility] Comment on above: Performed By: #### L [id number] ####[facility] ([facility])[address] [place] [place] [address] CO2 [Moles/Vol] 27 mmol/L Normal 21-31 [facility] Comment on above: Performed By: #### L [id number] ####[facility] ([facility])[address] [place] [address] Creatinine [Mass/Vol] 0.98 mg/dL Normal 0.60-1.20 [facility] Comment on above: Performed By: #### L [id number] ####[facility] ([facility])[address] [place] [place] [address] GLOMERULAR FILTRATION RATE ML/MIN/1.73 SQ M.PREDICTED 65.3 mL/min/1.73m*2 Normal >60.0 [facility] Comment on above: Result Comment: [facility]???s estimated glomerular filtration rate (eGFR) will no longer include consideration of race in its calculation. The National Kidney Foundation???s eGFR Task Force developed new recommendations for the estimation of the glomerular filtration rate in the [place] They recommend immediate implementation of the new equation refit without the race variable in all laboratories because the calculation does not include race. In addition to not including race in the calculation and reporting, it included diversity in its development, and has acceptable performance characteristics and potential consequences that do not disproportionately affect any one group of individuals. Performed By: #### L [id number] ####[facility] ([facility])[address] [place] [address] Glucose [Mass/Vol] 151 mg/dL High 70-100 [facility] Comment on above: Performed By: #### L [id number] ####[facility] ([facility])[address] [place] [place] [address] Potassium [Moles/Vol] 3.8 mmol/L Normal 3.5-5.1 [facility] Comment on above: Performed By: #### L [id number] ####[facility] ([facility])[address] [place] [place] [address] Protein [Mass/Vol] 7.0 g/dL Normal 6.0-8.3 [facility] Comment on above: Performed By: #### L [id number] ####[facility] ([facility])[address] [place] [place] [address] Sodium [Moles/Vol] 134 mmol/L Low 136-145 [facility] Comment on above: Performed By: #### L [id number] ####[facility] ([facility])[address] [place] [address] Urea nitrogen [Mass/Vol] 16 mg/dL Normal 7-25 [facility] Comment on above: Performed By: #### L [id number] ####[facility] ([facility])[address] [place] [address] UREA NITROGEN/CREATININE (MASS RATIO) IN SER/PLAS 16.3 Normal [facility] Comment on above: Performed By: #### L [id number] ####[facility] ([facility])[address] [place] [place] [address] Eosinophils/100 WBC Auto (Bl d)on 05-11-2024 Eosinophils/100 WBC (Bld) Automated eosinophil % 0.9-7.0 [facility] Erythrocyte distribution wid th Auto (RBC) [Ratio]on 05-11-2024 Erythrocyte distribution width (RBC) [Ratio] Erythrocyte distribution width [Ratio] by Automated count 11.0-15.0 [facility] Estimated glomerular filtrat ion rate (GFR) non- Americanon 05-11-2024 GFR/1.73 sq M.predicted among non-blacks MDRD (S/P/Bld) [Vol rate/Area] Estimated glomerular filtration rate (GFR) non- Low >=60 mL/min/1.73 m 2 [facility] HPon 05-11-2024 HP Normal [facility] Hematocrit Auto (Bld) [Volum e fraction]on 05-11-2024 Hematocrit (Bld) [Volume fraction] Hematocrit [Volume Fraction] of Blood by Automated count 36.0-48.0 [facility] Hemoglobin [Mass/volume] in Bloodon 05-11-2024 Hemoglobin (Bld) [Mass/Vol] Hemoglobin [Mass/volume] in Blood 12.0-16.0 [facility] INR in Platelet poor plasma by Coagulation assayon 05-11-2024 INR Coag (PPP) [Relative time] INR in Platelet poor plasma by Coagulation assay [facility] Comment on above: DESIRED INR:2.0-3.0 CONDITIONS NOT LISTED BELOW2.5-3.5 FOR PROSTHETIC HEART VALVE REPLACEMENT2.5-3.5 RECURRENT THROMBOSIS Laboratory - Chemistry and C hemistry - challengeon 05-11-2024 Calcium [Mass/Vol] 9.2 mg/dL 8.5-10.1 [facility] Chloride [Moles/Vol] 103 mmol/L 98-107 [facility] CO2 [Moles/Vol] 30.0 mmol/L 21.0-32.0 [facility] Creatinine [Mass/Vol] 1.17 mg/dL High 0.55-1.02 [facility] GFR/1.73 sq M.predicted MDRD (S/P/Bld) [Vol rate/Area] 57 mL/min/{1.73_m2} Low >=60 mL/min/1.73 m 2 [facility] Glucose [Mass/Vol] 127 mg/dL High 74-106 [facility] Potassium [Moles/Vol] 3.7 mmol/L 3.5-5.1 [facility] Sodium [Moles/Vol] 139 mmol/L 136-145 [facility] Urea nitrogen [Mass/Vol] 15.0 mg/dL 7.0-18.0 [facility] Urea nitrogen/Creatinine [Mass ratio] 12.8 mg/mg [facility] Laboratory - Coagulationon 0 05-11-2024 aPTT Coag (Bld) [Time] 36.6 s Critically low 43.5-61.5 [facility] Comment on above: RESULTS CALLED TO GABBI ESPINOSA RN @BY Ruby Keith at 1902 Laboratory - Hematology and Cell countson 05-11-2024 Immature granulocytes/100 WBC (Bld) 0.3 % 0.0-0.5 [facility] Leukocytes [#/volume] correc chantelle for nucleated erythrocytes in Blood by Automated counon 05-11-2024 WBC corrected for nucl RBC Auto (Bld) [#/Vol] Leukocytes [#/volume] corrected for nucleated erythrocytes in Blood by Automated coun 4.0-11.0 [facility] Lymphocytes Auto (Bld) [#/Vo l]on 05-11-2024 Lymphocytes (Bld) [#/Vol] Lymphocytes [#/volume] in Blood by Automated count 1.2-3.8 [facility] Lymphocytes/100 WBC Auto (Bl d)on 05-11-2024 Lymphocytes/100 WBC (Bld) Lymphocytes/100 leukocytes in Blood by Automated count 20.5-60.0 [facility] MAGNESIUMon 05-11-2024 Magnesium [Mass/Vol] 2.2 mg/dL Normal 1.9-2.7 [facility] Comment on above: Performed By: #### L [id number] ####[facility] (BEAKER)[address] [place] [address] MCH Auto (RBC) [Entitic mass ]on 05-11-2024 MCH (RBC) [Entitic mass] MCH [Entitic mass] by Automated count 26.7-34.0 [facility] MCHC Auto (RBC) [Mass/Vol]on 05-11-2024 MCHC (RBC) [Mass/Vol] MCHC [Mass/volume] by Automated count 29.9-35.2 [facility] MCV Auto (RBC) [Entitic vol] on 05-11-2024 MCV (RBC) [Entitic vol] MCV [Entitic volume] by Automated count 81.0-99.0 [facility] Monocytes Auto (Bld) [#/Vol] on 05-11-2024 Monocytes (Bld) [#/Vol] Automated blood monocyte count 0.3-0.8 [facility] Monocytes/100 WBC Auto (Bld) on 05-11-2024 Monocytes/100 WBC (Bld) Automated monocyte % 1.7-12.0 [facility] Neutrophils Auto (Bld) [#/Vo l]on 05-11-2024 Neutrophils (Bld) [#/Vol] Neutrophils [#/volume] in Blood by Automated count 1.4-6.5 [facility] Neutrophils/100 WBC Auto (Bl d)on 05-11-2024 Neutrophils/100 WBC (Bld) Automated neutrophil % 43.0-75.0 [facility] No Panel Informationon 05-11 Troponin I High Sensitivity 1036.8 pg/mL Critically high 4.0-51.3 [facility] Comment on above: RESULTS CALLED TO [place]O CRUZ RN at 1018CUT-OFF POINTS HAVE BEEN ESTABLISHED BASED ON THE FOURTHUNIVERSAL DEFINITION OF MYOCARDIAL INFARCTION. THE UPPERREFERENCE LIMIT (URL) OF TROPONIN, DEFINED THE 99THPERCENTILE OF cTnI DISTRIBUTION IN A REFERENCE POPULATION,HAS BEEN CONFIRMED THE DECISION THRESHOLD FOR MIDIAGNOSIS.99TH PERCENTILE = 51.4 PG/MLNOTE: HIGH-SENSITIVITY TROPONIN ASSAY IS NOT INTENDED TO BEUSED IN ISOLATION BUT SHOULD BE INTERPRETED IN CONJUNCTIONWITH OTHER DIAGNOSTIC AND CLINICAL INFORMATION. Eosinophils # (Auto) 0.4 10 3/uL 0.0-0.7 [facility] Immature Granulocyte # (Auto) 0.02 10 3/uL 0.00-0.03 [facility] PHOSPHORUSon 05-11-2024 Magnesium [Mass/Vol] 3.1 mg/dL Normal 2.5-5.0 [facility] Comment on above: Performed By: #### L [id number] ####[facility] ([facility])[address] [place] [address] POCT GLUCOSE METER UNSOLICIT ED RESULTSon 05-11-2024 Glucose [Mass/Vol] 163 mg/dL High 70-105 [facility] Comment on above: Order Comment: Waive d Testing in the ED is performed under the ED CLIA certificate #[id number]. Result Comment: mlad d3 Performed By: #### L [id number] ####[facility] (BEAKER)[address] [place] [address] PROTIME-INRon 05-11-2024 INR IN PPP BY COAGULATION ASSAY 0.99 Normal 0.90-1.10 [facility] Comment on above: Result Comment: ACCC P RECOMMENDED INR FOR WARFARIN THERAPY CONDITION INRPROPHYLAXIS OF VENOUS THROMBOSIS 2-3(HIGH-RISK SURGERY)TREATMENT OF VENOUS THROMBOSIS 2-3TREATMENT OF PULMONARY EMBOLISM 2-3PREVENTION OF SYSTEMIC EMBOLISM: 2-3 ACUTE MYOCARDIAL INFARCTION TISSUE HEART VALVES VALVULAR HEART DISEASE ATRIAL FIBRILLATION RECURRENT SYSTEMIC EMBOLISMMECHANICAL HEART VALVE 2.5-3.5 FROM: ORAL ANTICOAGULANTS. MECHANISM OF ACTION, CLINICAL EFFECTIVENESS, AND OPTIMAL THERAPEUTIC RANGE. CHEST 1995;108:231S-246S. Performed By: #### L [id number] ####[facility] (BEAKER)[address] [place] [address] PROTHROMBIN TIME (PT) IN PPP BY COAGULATION ASSAY 13.1 Seconds Normal 12.3-14.8 [facility] Comment on above: Performed By: #### L [id number] ####[facility] (BEAKER)[address] [place] [address] Platelet mean volume Auto (B ld) [Entitic vol]on 05-11-2024 Platelet mean volume (Bld) [Entitic vol] Platelet mean volume [Entitic volume] in Blood by Automated count 9.5-13.5 [facility] Platelets Auto (Bld) [#/Vol] on 05-11-2024 Platelets (Bld) [#/Vol] Platelets [#/volume] in Blood by Automated count 150-450 [facility] Prothrombin time (PT)on 04-24 PT Coag (PPP) [Time] Prothrombin time (PT) 9.0- 11.6 [facility] RBC Auto (Bld) [#/Vol]on RBC (Bld) [#/Vol] Erythrocytes [#/volu me] in Blood by Automated count 4.20-5.40 [facility] Serum or plasma anion gap de terminationon 05-11-2024 Anion gap [Moles/Vol] Serum or plasma an ion gap determination [facility] TROPONIN Ion 05-11-2024 Troponin I.cardiac [Mass/Vol] 0.06 ng/mL High 0.00-0.04 [facility] Comment on above: Performed By: #### L [id number] ####[facility] ([facility]AKER)[address] [place] [address] Basophils Auto (Bld) [#/Vol] on 05-10-2024 Basophils (Bld) [#/Vol] Automated basophil count 0.0-0.1 [facility] Basophils/100 WBC Auto (Bld) on 05-10-2024 Basophils/100 WBC (Bld) Automated basophil % 0.2-2.0 [facility] Eosinophils/100 WBC Auto (Bl d)on 05-10-2024 Eosinophils/100 WBC (Bld) Automated eosinophil % 0.9-7.0 [facility] Erythrocyte distribution wid th Auto (RBC) [Ratio]on 05-10-2024 Erythrocyte distribution width (RBC) [Ratio] Erythrocyte distribution width [Ratio] by Automated count 11.0-15.0 [facility] Estimated glomerular filtrat ion rate (GFR) non- Americanon 05-10-2024 GFR/1.73 sq M.predicted among non-blacks MDRD (S/P/Bld) [Vol rate/Area] Estimated glomerular filtration rate (GFR) non- Low >=60 mL/min/1.73 m 2 [facility] Globulin Calc (S) [Mass/Vol] on 05-10-2024 Globulin (S) [Mass/Vol] Serum globulin measurement by calculation (mass/volume) [facility] Hematocrit Auto (Bld) [Volum e fraction]on 05-10-2024 Hematocrit (Bld) [Volume fraction] Hematocrit [Volume Fraction] of Blood by Automated count 36.0-48.0 [facility] Hemoglobin [Mass/volume] in Bloodon 05-10-2024 Hemoglobin (Bld) [Mass/Vol] Hemoglobin [Mass/volume] in Blood 12.0-16.0 [facility] Laboratory - Chemistry and C hemistry - challengeon 05-10-2024 Albumin [Mass/Vol] 3.5 g/dL 3.4-5.0 [facility] ALP [Catalytic activity/Vol] 144 U/L High 46-116 [facility] ALT [Catalytic activity/Vol] 21 U/L 14-59 [facility] AST [Catalytic activity/Vol] 22 U/L 15-37 [facility] Bilirubin [Mass/Vol] 0.5 mg/dL 0.2-1.0 [facility] Calcium [Mass/Vol] 9.3 mg/dL 8.5-10.1 [facility] Chloride [Moles/Vol] 102 mmol/L 98-107 [facility] CO2 [Moles/Vol] 29.0 mmol/L 21.0-32.0 [facility] Creatinine [Mass/Vol] 1.17 mg/dL High 0.55-1.02 [facility] GFR/1.73 sq M.predicted MDRD (S/P/Bld) [Vol rate/Area] 57 mL/min/{1.73_m2} Low >=60 mL/min/1.73 m 2 [facility] Glucose [Mass/Vol] 142 mg/dL High 74-106 [facility] Natriuretic peptide B (Bld) [Mass/Vol] 1140.0 pg/mL High <=900.0 [facility] Potassium [Moles/Vol] 4.4 mmol/L 3.5-5.1 [facility] Protein [Mass/Vol] 7.4 g/dL 6.4-8.2 [facility] Sodium [Moles/Vol] 138 mmol/L 136-145 [facility] Urea nitrogen [Mass/Vol] 14.0 mg/dL 7.0-18.0 [facility] Urea nitrogen/Creatinine [Mass ratio] 12.0 mg/mg [facility] Laboratory - Hematology and Cell countson 05-10-2024 Immature granulocytes/100 WBC (Bld) 0.4 % 0.0-0.5 [facility] Leukocytes [#/volume] correc chantelle for nucleated erythrocytes in Blood by Automated counon 05-10-2024 WBC corrected for nucl RBC Auto (Bld) [#/Vol] Leukocytes [#/volume] corrected for nucleated erythrocytes in Blood by Automated coun 4.0-11.0 [facility] Lymphocytes Auto (Bld) [#/Vo l]on 05-10-2024 Lymphocytes (Bld) [#/Vol] Lymphocytes [#/volume] in Blood by Automated count 1.2-3.8 [facility] Lymphocytes/100 WBC Auto (Bl d)on 05-10-2024 Lymphocytes/100 WBC (Bld) Lymphocytes/100 leukocytes in Blood by Automated count Low 20.5-60.0 [facility] MCH Auto (RBC) [Entitic mass ]on 05-10-2024 MCH (RBC) [Entitic mass] MCH [Entitic mass] by Automated count 26.7-34.0 [facility] MCHC Auto (RBC) [Mass/Vol]on 05-10-2024 MCHC (RBC) [Mass/Vol] MCHC [Mass/volume] by Automated count 29.9-35.2 [facility] MCV Auto (RBC) [Entitic vol] on 05-10-2024 MCV (RBC) [Entitic vol] MCV [Entitic volume] by Automated count 81.0-99.0 [facility] Monocytes Auto (Bld) [#/Vol] on 05-10-2024 Monocytes (Bld) [#/Vol] Automated blood monocyte count 0.3-0.8 [facility] Monocytes/100 WBC Auto (Bld) on 05-10-2024 Monocytes/100 WBC (Bld) Automated monocyte % 1.7-12.0 [facility] Neutrophils Auto (Bld) [#/Vo l]on 05-10-2024 Neutrophils (Bld) [#/Vol] Neutrophils [#/volume] in Blood by Automated count 1.4-6.5 [facility] Neutrophils/100 WBC Auto (Bl d)on 05-10-2024 Neutrophils/100 WBC (Bld) Automated neutrophil % 43.0-75.0 [facility] No Panel Informationon 05-10 Troponin I High Sensitivity 641.2 pg/mL Critically high 4.0-51.3 [facility] Comment on above: RESULTS CALLED TO GABBI KENDRICK RN @BY Ruby Gee 2105CUT-OFF POINTS HAVE BEEN ESTABLISHED BASED ON THE FOURTHUNIVERSAL DEFINITION OF MYOCARDIAL INFARCTION. THE UPPERREFERENCE LIMIT (URL) OF TROPONIN, DEFINED THE 99THPERCENTILE OF cTnI DISTRIBUTION IN A REFERENCE POPULATION,HAS BEEN CONFIRMED THE DECISION THRESHOLD FOR MIDIAGNOSIS.99TH PERCENTILE = 51.4 PG/MLNOTE: HIGH-SENSITIVITY TROPONIN ASSAY IS NOT INTENDED TO BEUSED IN ISOLATION BUT SHOULD BE INTERPRETED IN CONJUNCTIONWITH OTHER DIAGNOSTIC AND CLINICAL INFORMATION. Eosinophils # (Auto) 0.4 10 3/uL 0.0-0.7 [facility] Immature Granulocyte # (Auto) 0.03 10 3/uL 0.00-0.03 [facility] Platelet mean volume Auto (B ld) [Entitic vol]on 05-10-2024 Platelet mean volume (Bld) [Entitic vol] Platelet mean volume [Entitic volume] in Blood by Automated count 9.5-13.5 [facility] Platelets Auto (Bld) [#/Vol] on 05-10-2024 Platelets (Bld) [#/Vol] Platelets [#/volume] in Blood by Automated count 150-450 [facility] RBC Auto (Bld) [#/Vol]on RBC (Bld) [#/Vol] Erythrocytes [#/volu me] in Blood by Automated count 4.20-5.40 [facility] Serum or plasma albumin/glob ulin mass ratioon 05-10-2024 Albumin/Globulin [Mass ratio] Serum or plasma albumin/globulin mass ratio [facility] Serum or plasma anion gap de terminationon 05-10-2024 Anion gap [Moles/Vol] Serum or plasma an ion gap determination [facility] 29on 02-19-2024 29 Addendum created 42 by Mario Bermudez MD Delete clinical note Normal [facility] 29 Addendum created 41 by Mario Bermudez MD Delete clinical note Normal [facility] 29on 01-22-2024 29 Addended by: PALMIRA CAUSEY on: 01/22/2024 02:27 PM Modules accepted: Orders Normal [facility] Orders Onlyon 01-22-2024 Orders Only Normal [facility] BASIC METABOLIC PANELon 12-23 Anion gap [Moles/Vol] 10 mmol/L Normal 7-20 [facility] Comment on above: Performed By: #### L [id number] ####[facility] ([facility]AKER)[address] [place] [address] Calcium [Mass/Vol] 8.6 mg/dL Normal 8.6-10.3 [facility] Comment on above: Performed By: #### L [id number] ####[facility] ([facility]AKER)[address] [place] [address] Chloride [Moles/Vol] 104 mmol/L Normal 98-107 [facility] Comment on above: Performed By: #### L [id number] ####[facility] (BEAKER)[address] [place] [address] CO2 [Moles/Vol] 29 mmol/L Normal 21-31 [facility] Comment on above: Performed By: #### L [id number] ####[facility] (BEAKER)[address] [place] [address] Creatinine [Mass/Vol] 0.91 mg/dL Normal 0.60-1.20 [facility] Comment on above: Performed By: #### L [id number] ####[facility] ([facility]AKER)[address] [place] [address] GLOMERULAR FILTRATION RATE ML/MIN/1.73 SQ M.PREDICTED 71.3 mL/min/1.73m*2 Normal >60.0 [facility] Comment on above: Result Comment: [facility]???s estimated glomerular filtration rate (eGFR) will no longer include consideration of race in its calculation. The National Kidney Foundation???s eGFR Task Force developed new recommendations for the estimation of the glomerular filtration rate in the [place] They recommend immediate implementation of the new equation refit without the race variable in all laboratories because the calculation does not include race. In addition to not including race in the calculation and reporting, it included diversity in its development, and has acceptable performance characteristics and potential consequences that do not disproportionately affect any one group of individuals. Performed By: #### L [id number] ####[facility] ([facility])[address] [place] [address] Glucose [Mass/Vol] 150 mg/dL High 70-100 [facility] Comment on above: Performed By: #### L [id number] ####[facility] ([facility])[address] [place] [address] Potassium [Moles/Vol] 4.1 mmol/L Normal 3.5-5.1 [facility] Comment on above: Performed By: #### L [id number] ####[facility] ([facility])[address] [place] [address] Sodium [Moles/Vol] 139 mmol/L Normal 136-145 [facility] Comment on above: Performed By: #### L [id number] ####[facility] ([facility])[address] [place] [address] Urea nitrogen [Mass/Vol] 25 mg/dL Normal 7-25 [facility] Comment on above: Performed By: #### L [id number] ####[facility] ([facility])[address] [place] [address] UREA NITROGEN/CREATININE (MASS RATIO) IN SER/PLAS 27.5 Normal [facility] Comment on above: Performed By: #### L [id number] ####[facility] ([facility])[address] [place] [address] CBCon 01-12-2024 Erythrocyte distribution width (RBC) [Ratio] 15.6 % High 11.5-15.0 [facility] Comment on above: Performed By: #### L [id number] ####[facility] ([facility])[address] [place] [address] ERYTHROCYTE MEAN CORPUSCULAR HEMOGLOBIN CONCENTRATION (G/DL) BY AUTOMATED 31.9 g/dL Low 32.0-35.0 [facility] Comment on above: Performed By: #### L [id number] ####[facility] ([facility] [place] [place] [address] Hematocrit (Bld) [Volume fraction] 32.3 % Low 36.0-48.0 [facility] Comment on above: Performed By: #### L [id number] ####[facility] ([facility])[address] [place] [place] [address] Hemoglobin (Bld) [Mass/Vol] 10.3 g/dL Low 12.0-15.0 [facility] Comment on above: Performed By: #### L [id number] ####[facility] (BEAKER)[address] [place] [place] [address] MCH (RBC) [Entitic mass] 31.7 pg Normal 27.0-33.0 [facility] Comment on above: Performed By: #### L [id number] ####[facility] (BEAKER)[address] [place] [address] MCV (RBC) [Entitic vol] 99.4 fL High 82.0-98.0 [facility] Comment on above: Performed By: #### L [id number] ####[facility] (BEAKER)[address] [place] [place] [address] PLATELETS (10*3/UL) IN BLOOD AUTOMATED COUNT 263 10*3/uL Normal 150-400 [facility] Comment on above: Performed By: #### L [id number] ####[facility] (BEAKER)[address] [place] [place] [address] RBC (Bld) [#/Vol] 3.25 10*6/uL Low 3.80-5.00 [facility] Comment on above: Performed By: #### L [id number] ####[facility] ([facility])[address] [place] [place] [address] WBC (Bld) [#/Vol] 5.96 10*3/uL Normal 4.00-10.60 [facility] Comment on above: Performed By: #### L [id number] ####[facility] ([facility])[address] [place] [place], [place] [address] 37on 01-08-2024 37 Normal [facility] 36on 01-07-2024 36 Called patient to re mind her to have chest xray completed prior to her appointment tomorrow. Normal [facility] BASIC METABOLIC PANELon 12-22 Anion gap [Moles/Vol] 8 mmol/L Normal 7-20 [facility] Comment on above: Performed By: #### L [id number] ####[facility] ([facility])[address] [place] [place] [address] Calcium [Mass/Vol] 8.4 mg/dL Low 8.6-10.3 [facility] Comment on above: Performed By: #### L [id number] ####[facility] ([facility])[address] [place] [place] [address] Chloride [Moles/Vol] 108 mmol/L High 98-107 [facility] Comment on above: Performed By: #### L [id number] ####[facility] ([facility])[address] [place] [place] [address] CO2 [Moles/Vol] 27 mmol/L Normal 21-31 [facility] Comment on above: Performed By: #### L [id number] ####[facility] ([facility])[address] [place] [address] Creatinine [Mass/Vol] 0.81 mg/dL Normal 0.60-1.20 [facility] Comment on above: Performed By: #### L [id number] ####[facility] ([facility])[address] [place] [place] [address] GLOMERULAR FILTRATION RATE ML/MIN/1.73 SQ M.PREDICTED 82.0 mL/min/1.73m*2 Normal >60.0 [facility] Comment on above: Result Comment: [facility]???s estimated glomerular filtration rate (eGFR) will no longer include consideration of race in its calculation. The National Kidney Foundation???s eGFR Task Force developed new recommendations for the estimation of the glomerular filtration rate in the [place] They recommend immediate implementation of the new equation refit without the race variable in all laboratories because the calculation does not include race. In addition to not including race in the calculation and reporting, it included diversity in its development, and has acceptable performance characteristics and potential consequences that do not disproportionately affect any one group of individuals. Performed By: #### L [id number] ####[facility] ([facility])[address] [place] [address] Glucose [Mass/Vol] 106 mg/dL High 70-100 [facility] Comment on above: Performed By: #### L [id number] ####[facility] ([facility])[address] [place] [address] Potassium [Moles/Vol] 4.1 mmol/L Normal 3.5-5.1 [facility] Comment on above: Performed By: #### L [id number] ####[facility] ([facility])[address] [place] [address] Sodium [Moles/Vol] 139 mmol/L Normal 136-145 [facility] Comment on above: Performed By: #### L [id number] ####[facility] (BEAKER)[address] [place] [address] Urea nitrogen [Mass/Vol] 18 mg/dL Normal 7-25 [facility] Comment on above: Performed By: #### L [id number] ####[facility] ([facility])[address] [place] [address] UREA NITROGEN/CREATININE (MASS RATIO) IN SER/PLAS 22.2 Normal [facility] Comment on above: Performed By: #### L [id number] ####[facility] ([facility])[address] [place] [address] CBCon 01-05-2024 Erythrocyte distribution width (RBC) [Ratio] 17.1 % High 11.5-15.0 [facility] Comment on above: Performed By: #### L [id number] ####[facility] ([facility])[address] [place] [address] ERYTHROCYTE MEAN CORPUSCULAR HEMOGLOBIN CONCENTRATION (G/DL) BY AUTOMATED 31.0 g/dL Low 32.0-35.0 [facility] Comment on above: Performed By: #### L [id number] ####[facility] ([facility])[address] [place] [address] Hematocrit (Bld) [Volume fraction] 32.6 % Low 36.0-48.0 [facility] Comment on above: Performed By: #### L [id number] ####[facility] ([facility])[address] [place] [address] Hemoglobin (Bld) [Mass/Vol] 10.1 g/dL Low 12.0-15.0 [facility] Comment on above: Performed By: #### L [id number] ####[facility] ([facility])[address] [place] [address] MCH (RBC) [Entitic mass] 32.1 pg Normal 27.0-33.0 [facility] Comment on above: Performed By: #### L [id number] ####[facility] ([facility])[address] [place] [address] MCV (RBC) [Entitic vol] 103.5 fL High 82.0-98.0 [facility] Comment on above: Performed By: #### L [id number] ####[facility] ([facility])[address] [place] [address] PLATELETS (10*3/UL) IN BLOOD AUTOMATED COUNT 371 10*3/uL Normal 150-400 [facility] Comment on above: Performed By: #### L [id number] ####[facility] ([facility])[address] [place] [place] [address] RBC (Bld) [#/Vol] 3.15 10*6/uL Low 3.80-5.00 [facility] Comment on above: Performed By: #### L [id number] ####[facility] ([facility])[address] [place] [place] [address] WBC (Bld) [#/Vol] 6.99 10*3/uL Normal 4.00-10.60 [facility] Comment on above: Performed By: #### L [id number] ####[facility] ([facility])[address] [place] [place] [address] CBC WITH AUTO DIFFERENTIALon 12-31-2023 Basophils (Bld) [#/Vol] 0.07 10*3/uL Normal 0.00-0.20 [facility] Comment on above: Performed By: #### L [id number] ####[facility] ([facility])[address] [place] [place] [address] Basophils/100 WBC (Bld) 1.1 % High 0.0-1.0 [facility] Comment on above: Performed By: #### L [id number] ####[facility] ([facility])[address] [place] [address] Eosinophils (Bld) [#/Vol] 0.39 10*3/uL Normal 0.00-0.50 [facility] Comment on above: Performed By: #### L [id number] ####[facility] ([facility])[address] [place] [address] Eosinophils/100 WBC (Bld) 6.3 % High 0.0-6.0 [facility] Comment on above: Performed By: #### L [id number] ####[facility] ([facility])[address] [place], [place] [address] Erythrocyte distribution width (RBC) [Ratio] 17.5 % High 11.5-15.0 [facility] Comment on above: Performed By: #### L [id number] ####[facility] ([facility])[address] [place] [place] [address] ERYTHROCYTE MEAN CORPUSCULAR HEMOGLOBIN CONCENTRATION (G/DL) BY AUTOMATED 30.6 g/dL Low 32.0-35.0 [facility] Comment on above: Performed By: #### L [id number] ####[facility] ([facility])[address] [place] [place] [address] Hematocrit (Bld) [Volume fraction] 28.4 % Low 36.0-48.0 [facility] Comment on above: Performed By: #### L [id number] ####[facility] ([facility])[address] [place] [place] [address] Hemoglobin (Bld) [Mass/Vol] 8.7 g/dL Low 12.0-15.0 [facility] Comment on above: Performed By: #### L [id number] ####[facility] ([facility])[address] [place] [address] Immature granulocytes (Bld) [#/Vol] 0.04 10*3/uL Normal 0.00-0.20 [facility] Comment on above: Performed By: #### L [id number] ####[facility] ([facility])[address] [place] [address] Immature granulocytes/100 WBC (Bld) 0.6 % Normal 0.0-1.0 [facility] Comment on above: Performed By: #### L [id number] ####[facility] ([facility])[address] [place] [place] [address] Lymphocytes (Bld) [#/Vol] 1.24 10*3/uL Normal 1.20-4.00 [facility] Comment on above: Performed By: #### L [id number] ####[facility] ([facility])[address] [place] [address] Lymphocytes/100 WBC (Bld) 20.0 % Normal 20.0-45.0 [facility] Comment on above: Performed By: #### L [id number] ####[facility] ([facility])[address] [place] [address] MCH (RBC) [Entitic mass] 31.8 pg Normal 27.0-33.0 [facility] Comment on above: Performed By: #### L [id number] ####[facility] ([facility])[address] [place] [place] [address] MCV (RBC) [Entitic vol] 103.6 fL High 82.0-98.0 [facility] Comment on above: Performed By: #### L [id number] ####[facility] ([facility])[address] [place] [place] [address] Monocytes (Bld) [#/Vol] 0.35 10*3/uL Normal 0.10-1.00 [facility] Comment on above: Performed By: #### L [id number] ####[facility] ([facility])[address] [place] [place] [address] Monocytes/100 WBC (Bld) 5.6 % Normal 5.0-12.0 [facility] Comment on above: Performed By: #### L [id number] ####[facility] ([facility])[address] [place] [address] Neutrophils (Bld) [#/Vol] 4.12 10*3/uL Normal 1.60-7.60 [facility] Comment on above: Performed By: #### L [id number] ####[facility] ([facility])[address] [place] [address] Neutrophils/100 WBC (Bld) 66.4 % Normal 40.0-72.0 [facility] Comment on above: Performed By: #### L [id number] ####[facility] ([facility])[address] [place] [address] NRBC (PER 100 WBCS) BY AUTOMATED COUNT 0.0 % Normal 0 [facility] Comment on above: Performed By: #### L [id number] ####[facility] ([facility])[address] [place] [address] PLATELETS (10*3/UL) IN BLOOD AUTOMATED COUNT 405 10*3/uL High 150-400 [facility] Comment on above: Performed By: #### L [id number] ####[facility] ([facility])[address] [place] [place] [address] RBC (Bld) [#/Vol] 2.74 10*6/uL Low 3.80-5.00 [facility] Comment on above: Performed By: #### L [id number] ####[facility] ([facility])[address] [place] [place] [address] WBC (Bld) [#/Vol] 6.21 10*3/uL Normal 4.00-10.60 [facility] Comment on above: Performed By: #### L [id number] ####[facility] ([facility])[address] [place] [place] [address] COMPREHENSIVE METABOLIC PANE Kirit 12-31-2023 Albumin [Mass/Vol] 3.2 g/dL Low 3.5-5.7 [facility] Comment on above: Performed By: #### L [id number] ####[facility] ([facility])[address] [place] [address] ALP [Catalytic activity/Vol] 115 U/L High 34-104 [facility] Comment on above: Performed By: #### L [id number] ####[facility] ([facility])[address] [place] [address] ALT [Catalytic activity/Vol] 11 U/L Normal 7-52 [facility] Comment on above: Performed By: #### L [id number] ####[facility] ([facility])[address] [place] [address] Anion gap [Moles/Vol] 9 mmol/L Normal 7-20 [facility] Comment on above: Performed By: #### L [id number] ####[facility] ([facility])[address] [place] [address] AST [Catalytic activity/Vol] 19 U/L Normal 13-39 [facility] Comment on above: Performed By: #### L [id number] ####[facility] ([facility])[address] [place] [address] Bilirubin [Mass/Vol] 0.3 mg/dL Normal 0.3-1.0 [facility] Comment on above: Performed By: #### L [id number] ####[facility] ([facility])[address] [place] [address] Calcium [Mass/Vol] 8.5 mg/dL Low 8.6-10.3 [facility] Comment on above: Performed By: #### L [id number] ####[facility] ([facility])[address] [place] [address] Chloride [Moles/Vol] 104 mmol/L Normal 98-107 [facility] Comment on above: Performed By: #### L [id number] ####[facility] ([facility])[address] [place] [address] CO2 [Moles/Vol] 28 mmol/L Normal 21-31 [facility] Comment on above: Performed By: #### L [id number] ####[facility] ([facility])[address] [place] [address] Creatinine [Mass/Vol] 0.66 mg/dL Normal 0.60-1.20 [facility] Comment on above: Performed By: #### L [id number] ####[facility] ([facility])[address] [place] [address] GLOMERULAR FILTRATION RATE ML/MIN/1.73 SQ M.PREDICTED 99.1 mL/min/1.73m*2 Normal >60.0 [facility] Comment on above: Result Comment: [facility]???s estimated glomerular filtration rate (eGFR) will no longer include consideration of race in its calculation. The National Kidney Foundation???s eGFR Task Force developed new recommendations for the estimation of the glomerular filtration rate in the [place] They recommend immediate implementation of the new equation refit without the race variable in all laboratories because the calculation does not include race. In addition to not including race in the calculation and reporting, it included diversity in its development, and has acceptable performance characteristics and potential consequences that do not disproportionately affect any one group of individuals. Performed By: #### L [id number] ####[facility] ([facility])[address] [place] [address] Glucose [Mass/Vol] 112 mg/dL High 70-100 [facility] Comment on above: Performed By: #### L [id number] ####[facility] ([facility])[address] [place] [address] Potassium [Moles/Vol] 4.3 mmol/L Normal 3.5-5.1 [facility] Comment on above: Performed By: #### L [id number] ####[facility] ([facility])[address] [place] [address] Protein [Mass/Vol] 5.7 g/dL Low 6.0-8.3 [facility] Comment on above: Performed By: #### L [id number] ####[facility] ([facility])[address] [place] [address] Sodium [Moles/Vol] 137 mmol/L Normal 136-145 [facility] Comment on above: Performed By: #### L [id number] ####[facility] ([facility])[address] [place] [address] Urea nitrogen [Mass/Vol] 17 mg/dL Normal 7-25 [facility] Comment on above: Performed By: #### L [id number] ####[facility] ([facility])[address] [place] [address] UREA NITROGEN/CREATININE (MASS RATIO) IN SER/PLAS 25.8 [facility] Comment on above: Performed By: #### L [id number] ####[facility] ([facility])[address] [place] [address] 30on 12-30-2023 30 [facility] 30 [facility] DSon 12-30-2023 DS [facility] Orders Onlyon 12-30-2023 Orders Only [facility] POCT GLUCOSE METER UNSOLICIT ED RESULTSon 12-30-2023 Glucose [Mass/Vol] 164 mg/dL High 70-105 [facility] Comment on above: Order Comment: Waive d Testing in the ED is performed under the ED CLIA certificate #[id number]. Result Comment: bflo od Performed By: #### L [id number] ####[facility] ([facility])[address] [place] [address] Glucose [Mass/Vol] 144 mg/dL High 70-105 [facility] Comment on above: Order Comment: Waive d Testing in the ED is performed under the ED CLIA certificate #[id number]. Result Comment: bflo od Performed By: #### L [id number] ####[facility] ([facility])[address] [place] [address] 30on 12-29-2023 30 Normal [facility] 30 Normal [facility] 30 Normal [facility] BASIC METABOLIC PANELon 10-0 Anion gap [Moles/Vol] 9 mmol/L Normal 7-20 [facility] Comment on above: Performed By: #### L [id number] ####[facility] ([facility])[address] [place] [address] Calcium [Mass/Vol] 8.2 mg/dL Low 8.6-10.3 [facility] Comment on above: Performed By: #### L [id number] ####[facility] ([facility])[address] [place] [address] Chloride [Moles/Vol] 103 mmol/L Normal 98-107 [facility] Comment on above: Performed By: #### L [id number] ####[facility] ([facility])[address] [place] [address] CO2 [Moles/Vol] 30 mmol/L Normal 21-31 [facility] Comment on above: Performed By: #### L [id number] ####[facility] ([facility])[address] [place] [address] Creatinine [Mass/Vol] 0.69 mg/dL Normal 0.60-1.20 [facility] Comment on above: Performed By: #### L [id number] ####[facility] ([facility])[address] [place] [place] [address] GLOMERULAR FILTRATION RATE ML/MIN/1.73 SQ M.PREDICTED 98.1 mL/min/1.73m*2 Normal >60.0 [facility] Comment on above: Result Comment: [facility]???s estimated glomerular filtration rate (eGFR) will no longer include consideration of race in its calculation. The National Kidney Foundation???s eGFR Task Force developed new recommendations for the estimation of the glomerular filtration rate in the [place] They recommend immediate implementation of the new equation refit without the race variable in all laboratories because the calculation does not include race. In addition to not including race in the calculation and reporting, it included diversity in its development, and has acceptable performance characteristics and potential consequences that do not disproportionately affect any one group of individuals. Performed By: #### L [id number] ####[facility] ([facility])[address] [place] [address] Glucose [Mass/Vol] 164 mg/dL High 70-100 [facility] Comment on above: Performed By: #### L [id number] ####[facility] ([facility])[address] [place] [address] Potassium [Moles/Vol] 4.1 mmol/L Normal 3.5-5.1 [facility] Comment on above: Performed By: #### L [id number] ####[facility] ([facility])[address] [place] [place] [address] Sodium [Moles/Vol] 138 mmol/L Normal 136-145 [facility] Comment on above: Performed By: #### L [id number] ####[facility] ([facility])[address] [place] [place] [address] Urea nitrogen [Mass/Vol] 13 mg/dL Normal 7-25 [facility] Comment on above: Performed By: #### L [id number] ####[facility] ([facility])[address] [place] [place] [address] UREA NITROGEN/CREATININE (MASS RATIO) IN SER/PLAS 18.8 Normal [facility] Comment on above: Performed By: #### L [id number] ####[facility] ([facility])[address] [place] [address] CBCon 12-29-2023 Erythrocyte distribution width (RBC) [Ratio] 17.5 % High 11.5-15.0 [facility] Comment on above: Performed By: #### L [id number] ####[facility] ([facility])[address] [place] [address] ERYTHROCYTE MEAN CORPUSCULAR HEMOGLOBIN CONCENTRATION (G/DL) BY AUTOMATED 31.7 g/dL Low 32.0-35.0 [facility] Comment on above: Performed By: #### L [id number] ####[facility] ([facility])[address] [place] [address] Hematocrit (Bld) [Volume fraction] 26.2 % Low 36.0-48.0 [facility] Comment on above: Performed By: #### L [id number] ####[facility] ([facility])[address] [place] [address] Hemoglobin (Bld) [Mass/Vol] 8.3 g/dL Low 12.0-15.0 [facility] Comment on above: Performed By: #### L [id number] ####[facility] ([facility])[address] [place] [place] [address] MCH (RBC) [Entitic mass] 32.3 pg Normal 27.0-33.0 [facility] Comment on above: Performed By: #### L [id number] ####[facility] ([facility])[address] [place] [address] MCV (RBC) [Entitic vol] 101.9 fL High 82.0-98.0 [facility] Comment on above: Performed By: #### L [id number] ####[facility] ([facility])[address] [place] [address] PLATELETS (10*3/UL) IN BLOOD AUTOMATED COUNT 393 10*3/uL Normal 150-400 [facility] Comment on above: Performed By: #### L [id number] ####[facility] ([facility])[address] [place] [address] RBC (Bld) [#/Vol] 2.57 10*6/uL Low 3.80-5.00 [facility] Comment on above: Performed By: #### L [id number] ####[facility] ([facility])[address] [place] [address] WBC (Bld) [#/Vol] 6.00 10*3/uL Normal 4.00-10.60 [facility] Comment on above: Performed By: #### L [id number] ####[facility] ([facility])[address] [place] [address] FERRITINon 12-29-2023 FERRITIN (NG/ML) IN SER/PLAS 319.0 ng/mL High 11.0-307.0 [facility] Comment on above: Performed By: #### L [id number] ####[facility] ([facility])[address] [place] [address] MAGNESIUMon 12-29-2023 Magnesium [Mass/Vol] 2.2 mg/dL Normal 1.9-2.7 [facility] Comment on above: Performed By: #### L [id number] ####[facility] ([facility])[address] [place] [address] POCT GLUCOSE METER UNSOLICIT ED RESULTSon 12-29-2023 Glucose [Mass/Vol] 173 mg/dL High 70-105 [facility] Comment on above: Order Comment: Waive d Testing in the ED is performed under the ED CLIA certificate #[id number]. Result Comment: [email or web address] Performed By: #### L [id number] ####[facility] ([facility])[address] [place] [address] Glucose [Mass/Vol] 133 mg/dL High 70-105 [facility] Comment on above: Order Comment: Waive d Testing in the ED is performed under the ED CLIA certificate #[id number]. Result Comment: [email or web address] Performed By: #### L [id number] ####[facility] ([employer])[address] [place] [address] Glucose [Mass/Vol] 124 mg/dL High 70-105 [facility] Comment on above: Order Comment: Waive d Testing in the ED is performed under the ED CLIA certificate #[id number]. Result Comment: [email or web address] [email or web address] Performed By: #### L [id number] ####[facility] ([employer])[address] [place] [address] Glucose [Mass/Vol] 112 mg/dL High 70-105 [facility] Comment on above: Order Comment: Waive d Testing in the ED is performed under the ED CLIA certificate #[id number]. Result Comment: bflo od Performed By: #### L [id number] ####[facility] ([employer])[address] [place] [address] 30on 12-28-2023 30 Normal [facility] POCT GLUCOSE METER UNSOLICIT ED RESULTSon 12-28-2023 Glucose [Mass/Vol] 166 mg/dL High 70-105 [facility] Comment on above: Order Comment: Waive d Testing in the ED is performed under the ED CLIA certificate #[id number]. Result Comment: [email or web address] Performed By: #### L [id number] ####[facility] ([employer])[address] [place] [address] Glucose [Mass/Vol] 103 mg/dL Normal 70-105 [facility] Comment on above: Order Comment: Waive d Testing in the ED is performed under the ED CLIA certificate #[id number]. Result Comment: [email or web address] Performed By: #### L [id number] ####[facility] ([employer])[address] [place] [address] Glucose [Mass/Vol] 154 mg/dL High 70-105 [facility] Comment on above: Order Comment: Waive d Testing in the ED is performed under the ED CLIA certificate #[id number]. Result Comment: [email or web address] Performed By: #### L [id number] ####[facility] ([facility])[address] [place] [address] Glucose [Mass/Vol] 128 mg/dL High 70-105 [facility] Comment on above: Order Comment: Waive d Testing in the ED is performed under the ED CLIA certificate #[id number]. Result Comment: [email or web address] Performed By: #### L [id number] ####[facility] ([facility])[address] [place] [address] 30on 12-27-2023 30 Normal [facility] 30 Normal [facility] BASIC METABOLIC PANELon 10-0 Anion gap [Moles/Vol] 12 mmol/L Normal 7-20 [facility] Comment on above: Performed By: #### L [id number] ####[facility] ([facility])[address] [place] [address] Calcium [Mass/Vol] 8.1 mg/dL Low 8.6-10.3 [facility] Comment on above: Performed By: #### L [id number] ####[facility] ([facility])[address] [place] [address] Chloride [Moles/Vol] 104 mmol/L Normal 98-107 [facility] Comment on above: Performed By: #### L [id number] ####[facility] ([facility])[address] [place] [address] CO2 [Moles/Vol] 24 mmol/L Normal 21-31 [facility] Comment on above: Performed By: #### L [id number] ####[facility] ([facility])[address] [place] [address] Creatinine [Mass/Vol] 0.69 mg/dL Normal 0.60-1.20 [facility] Comment on above: Performed By: #### L [id number] ####[facility] ([facility])[address] [place] [place] [address] GLOMERULAR FILTRATION RATE ML/MIN/1.73 SQ M.PREDICTED 98.1 mL/min/1.73m*2 Normal >60.0 [facility] Comment on above: Result Comment: [facility]???s estimated glomerular filtration rate (eGFR) will no longer include consideration of race in its calculation. The National Kidney Foundation???s eGFR Task Force developed new recommendations for the estimation of the glomerular filtration rate in the [place] They recommend immediate implementation of the new equation refit without the race variable in all laboratories because the calculation does not include race. In addition to not including race in the calculation and reporting, it included diversity in its development, and has acceptable performance characteristics and potential consequences that do not disproportionately affect any one group of individuals. Performed By: #### L [id number] ####[facility] ([facility])[address] [place] [place] [address] Glucose [Mass/Vol] 107 mg/dL High 70-100 [facility] Comment on above: Performed By: #### L [id number] ####[facility] ([facility])[address] [place] [place] [address] Potassium [Moles/Vol] 4.6 mmol/L Normal 3.5-5.1 [facility] Comment on above: Performed By: #### L [id number] ####[facility] ([facility])[address] [place] [address] Sodium [Moles/Vol] 135 mmol/L Low 136-145 [facility] Comment on above: Performed By: #### L [id number] ####[facility] ([facility])[address] [place] [address] Urea nitrogen [Mass/Vol] 20 mg/dL Normal 7-25 [facility] Comment on above: Performed By: #### L [id number] ####[facility] ([facility])[address] [place] [address] UREA NITROGEN/CREATININE (MASS RATIO) IN SER/PLAS 29.0 Normal [facility] Comment on above: Performed By: #### L [id number] ####[facility] ([facility])[address] [place] [address] CBCon 12-27-2023 Erythrocyte distribution width (RBC) [Ratio] 17.4 % High 11.5-15.0 [facility] Comment on above: Performed By: #### L [id number] ####[facility] ([facility])[address] [place] [place] [address] ERYTHROCYTE MEAN CORPUSCULAR HEMOGLOBIN CONCENTRATION (G/DL) BY AUTOMATED 30.4 g/dL Low 32.0-35.0 [facility] Comment on above: Performed By: #### L [id number] ####[facility] ([facility])[address] [place] [address] Hematocrit (Bld) [Volume fraction] 28.3 % Low 36.0-48.0 [facility] Comment on above: Performed By: #### L [id number] ####[facility] ([facility])[address] [place] [place] [address] Hemoglobin (Bld) [Mass/Vol] 8.6 g/dL Low 12.0-15.0 [facility] Comment on above: Performed By: #### L [id number] ####[facility] ([facility])[address] [place] [place] [address] IMMATURE PLATELET FRACTION % 0.5 % Low 0.8-6.3 [facility] Comment on above: Performed By: #### L [id number] ####[facility] ([facility] [place] [place] [address] MCH (RBC) [Entitic mass] 32.2 pg Normal 27.0-33.0 [facility] Comment on above: Performed By: #### L [id number] ####[facility] ([facility])[address] [place] [place] [address] MCV (RBC) [Entitic vol] 106.0 fL High 82.0-98.0 [facility] Comment on above: Performed By: #### L [id number] ####[facility] ([facility] [place] [place] [address] Platelet mean volume (Bld) [Entitic vol] 8.9 fL Normal 7.5-11.5 [facility] Comment on above: Performed By: #### L [id number] ####[facility] ([facility])[address] [place] [place], [place] [address] PLATELETS (10*3/UL) IN BLOOD AUTOMATED COUNT 437 10*3/uL High 150-400 [facility] Comment on above: Performed By: #### L [id number] ####[facility] ([facility])[address] [place] [place] [address] RBC (Bld) [#/Vol] 2.67 10*6/uL Low 3.80-5.00 [facility] Comment on above: Performed By: #### L [id number] ####[facility] ([facility])[address] [place] [address] WBC (Bld) [#/Vol] 7.03 10*3/uL Normal 4.00-10.60 [facility] Comment on above: Performed By: #### L [id number] ####[facility] ([facility])[address] [place] [address] MAGNESIUMon 12-27-2023 Magnesium [Mass/Vol] 2.5 mg/dL Normal 1.9-2.7 [facility] Comment on above: Performed By: #### L [id number] ####[facility] ([facility])[address] [place] [place] [address] POCT GLUCOSE METER UNSOLICIT ED RESULTSon 12-27-2023 Glucose [Mass/Vol] 100 mg/dL Normal 70-105 [facility] Comment on above: Order Comment: Waive d Testing in the ED is performed under the ED CLIA certificate #[id number]. Result Comment: [email or web address] Performed By: #### L [id number] ####[facility] ([facility])[address] [place] [address] Glucose [Mass/Vol] 130 mg/dL High 70-105 [facility] Comment on above: Order Comment: Waive d Testing in the ED is performed under the ED CLIA certificate #[id number]. Result Comment: bflo od Performed By: #### L [id number] ####[facility] ([facility])[address] [place] [address] Glucose [Mass/Vol] 174 mg/dL High 70-105 [facility] Comment on above: Order Comment: Waive d Testing in the ED is performed under the ED CLIA certificate #[id number]. Result Comment: bflo od Performed By: #### L [id number] ####[facility] ([facility])[address] [facility] [address] Glucose [Mass/Vol] 131 mg/dL High 70-105 [facility] Comment on above: Order Comment: Waive d Testing in the ED is performed under the ED CLIA certificate #[id number]. Result Comment: bflo od Performed By: #### L [id number] ####[facility] ([facility])[address] [place] [address] 30on 12-26-2023 30 Normal [facility] 30 Normal [facility] POCT GLUCOSE METER UNSOLICIT ED RESULTSon 12-26-2023 Glucose [Mass/Vol] 144 mg/dL High 70-105 [facility] Comment on above: Order Comment: Waive d Testing in the ED is performed under the ED CLIA certificate #[id number]. Result Comment: [email or web address] Performed By: #### L [id number] ####[facility] ([facility])[address] [facility] [address] Glucose [Mass/Vol] 161 mg/dL High 70-105 [facility] Comment on above: Order Comment: Waive d Testing in the ED is performed under the ED CLIA certificate #[id number]. Result Comment: cgro ll Performed By: #### L [id number] ####[facility] ([facility] [place] [address] Glucose [Mass/Vol] 118 mg/dL High 70-105 [facility] Comment on above: Order Comment: Waive d Testing in the ED is performed under the ED CLIA certificate #[id number]. Result Comment: [email or web address] Performed By: #### L [id number] ####[facility] ([facility])[address] [place] [address] Glucose [Mass/Vol] 128 mg/dL High 70-105 [facility] Comment on above: Order Comment: Waive d Testing in the ED is performed under the ED CLIA certificate #[id number]. Result Comment: [email or web address] [email or web address] Performed By: #### L [id number] ####[facility] ([facility])[address] [place] [address] 30on 12-25-2023 30 The patient is Moder ately Stable - Low risk of patient condition declining or worsening The patient's goals for the shift include no pain The clinical goals for the shift include vss/pain control Normal [facility] 30 Normal [facility] NURSNOTEon 12-25-2023 NURSNOTE Normal [facility] POCT GLUCOSE METER UNSOLICIT ED RESULTSon 12-25-2023 Glucose [Mass/Vol] 115 mg/dL High 70-105 [facility] Comment on above: Order Comment: Waive d Testing in the ED is performed under the ED CLIA certificate #[id number]. Result Comment: larry morrow Performed By: #### L [id number] ####[facility] ([facility])[address] [place] [address] Glucose [Mass/Vol] 118 mg/dL High 70-105 [facility] Comment on above: Order Comment: Waive d Testing in the ED is performed under the ED CLIA certificate #[id number]. Result Comment: [email or web address] [email or web address] Performed By: #### L [id number] ####[facility] ([facility])[address] [place] [address] Glucose [Mass/Vol] 169 mg/dL High 70-105 [facility] Comment on above: Order Comment: Waive d Testing in the ED is performed under the ED CLIA certificate #[id number]. Result Comment: [email or web address] Performed By: #### L [id number] ####[facility] ([facility] [facility] [place] [place] [address] Glucose [Mass/Vol] 126 mg/dL High 70-105 [facility] Comment on above: Order Comment: Waive d Testing in the ED is performed under the ED CLIA certificate #[id number]. Result Comment: [email or web address] Performed By: #### L [id number] ####[facility] ([facility])[address] [facility] [place] [address] 30on 12-24-2023 30 Normal [facility] 30 The patient is Moder ately Stable - Low risk of patient condition declining or worsening The patient's goals for the shift include comfort The clinical goals for the shift include safety Normal [facility] AFB CULTUREon 12-24-2023 AFB CULTURE No growth at 42 days Normal [facility] Comment on above: Performed By: #### L [id number] ####[facility] ([facility])[address] [facility] [place] [place] [address] AFB STAIN No acid fast bacilli seen Normal [facility] Comment on above: Performed By: #### L [id number] ####[facility] ([facility] [facility] [place] [address] AMYLASE, BODY FLUIDon 2023 AMYLASE (U/L) IN BODY FLUID <10 Normal [facility] Comment on above: Result Comment: The reference range and other method performance specifications have not been established for this test in fluids. the test result should be integrated into the clinical context for interpretation. Performed By: #### L [id number] ####[facility] ([facility] [facility] [place] [address] BODY FLUID CELL DIFFERENTIAL on 12-24-2023 BASOPHILS TOTAL PER COUNTED LEUKOCYTES IN BODY FLUID BY MANUAL COUNT 2 Normal [facility] Comment on above: Order Comment: Diffe rential performed on cytospin Performed By: #### L [id number] ####[facility] ([facility])[address] [place] [address] CELLS COUNTED TOTAL (#) IN BODY FLUID 100 Normal [facility] Comment on above: Order Comment: Diffe rential performed on cytospin Performed By: #### L [id number] ####[facility] ([facility])[address] [place] [address] EOSINOPHILS TOTAL PER COUNTED LEUKOCYTES IN BODY FLUID BY MANUAL COUNT 4 [facility] Comment on above: Order Comment: Diffe rential performed on cytospin Performed By: #### L [id number] ####[facility] ([facility])[address] [place] [address] LYMPHOCYTES TOTAL PER COUNTED LEUKOCYTES IN BODY FLUID BY MANUAL COUNT 9 [facility] Comment on above: Order Comment: Diffe rential performed on cytospin Performed By: #### L [id number] ####[facility] ([facility])[address] [place] [address] MESOTHELIAL CELLS TOTAL PER COUNTED LEUKOCYTES IN BODY FLUID BY MANUAL COUN 5 [facility] Comment on above: Order Comment: Diffe rential performed on cytospin Performed By: #### L [id number] ####[facility] ([facility])[address] [place] [address] MONOCYTES+MACROPHAGES TOTAL PER COUNTED LEUKOCYTES IN BODY FLUID BY MANUAL [facility] Comment on above: Order Comment: Diffe rential performed on cytospin Performed By: #### L [id number] ####[facility] ([facility])[address] [place] [address] NEUTROPHILS TOTAL PER COUNTED LEUKOCYTES IN BODY FLUID BY MANUAL COUNT 80 [facility] Comment on above: Order Comment: Diffe rential performed on cytospin Performed By: #### L [id number] ####[facility] ([facility])[address] [place] [address] OTHER CELLS BODY FLUID (MANUAL) [facility] Comment on above: Order Comment: Diffe rential performed on cytospin Performed By: #### L [id number] ####[facility] ([facility])[address] [place] [address] BODY FLUID CULTUREon 024 Bacteria identified Cx Nom (Unsp spec) No growth at 5 days Normal [facility] Comment on above: Performed By: #### L [id number] ####[facility] ([facility])[address] [place] [address] GRAM STAIN RESULT Normal [facility] Comment on above: Result Comment: Poly morphonuclear leukocytesNo organisms seenCytocentrifuge sample Performed By: #### L [id number] ####[facility] ([facility])[address] [place] [address] CHOLESTEROL, BODY FLUIDon CHOLESTEROL (MG/DL) IN BODY FLUID 37 mg/dL Normal [facility] Comment on above: Performed By: #### L [id number] ####[facility] ([facility])[address] [place] [address] CONSULTon 12-24-2023 CONSULT Normal [facility] FUNGAL CULTUREon 12-24-2023 FUNGAL SMEAR No yeast or fungal elements seen [facility] Comment on above: Performed By: #### L [id number] ####[facility] ([facility])[address] [place] [address] GLUCOSE, BODY FLUIDon 2023 GLUCOSE (MG/DL) IN BODY FLUID 88 mg/dL Normal [facility] Comment on above: Result Comment: The reference range and other method performance specifications have not been established for this test in fluids. the test result should be integrated into the clinical context for interpretation. Performed By: #### L [id number] ####[facility] ([facility])[address] [place] [address] GLUCOSE, RANDOMon 12-24-2023 Glucose [Mass/Vol] 121 mg/dL High 70-100 [facility] Comment on above: Performed By: #### L [id number] ####[facility] ([facility])[address] [place] [address] HEPATIC FUNCTION PANELon Albumin [Mass/Vol] 3.4 g/dL Low 3.5-5.7 [facility] Comment on above: Performed By: #### L [id number] ####[facility] ([facility])[address] [place] [place] [address] ALP [Catalytic activity/Vol] 133 U/L High 34-104 [facility] Comment on above: Performed By: #### L [id number] ####[facility] ([facility])[address] [place] [place] [address] ALT [Catalytic activity/Vol] 22 U/L Normal 7-52 [facility] Comment on above: Performed By: #### L [id number] ####[facility] ([facility])[address] [place] [place] [address] AST [Catalytic activity/Vol] 28 U/L Normal 13-39 [facility] Comment on above: Performed By: #### L [id number] ####[facility] ([facility])[address] [place] [place] [address] Bilirubin [Mass/Vol] 0.4 mg/dL Normal 0.3-1.0 [facility] Comment on above: Performed By: #### L [id number] ####[facility] ([facility])[address] [place] [place] [address] Magnesium [Mass/Vol] 0.1 mg/dL Normal 0-0.2 [facility] Comment on above: Performed By: #### L [id number] ####[facility] ([facility])[address] [place] [place] [address] Protein [Mass/Vol] 6.1 g/dL Normal 6.0-8.3 [facility] Comment on above: Performed By: #### L [id number] ####[facility] ([facility])[address] [place] [place] [address] LACTATE DEHYDROGENASEon LACTATE DEHYDROGENASE (U/L) IN SER/PLAS BY LAC->PYR RXN 240 U/L Normal 140-271 [facility] Comment on above: Performed By: #### L [id number] ####[facility] ([facility])[address] [place] [address] LACTATE DEHYDROGENASE, BODY FLUIDon 12-24-2023 LACTATE DEHYDROGENASE (U/L) IN BODY FLUID BY LAC->PYR 756 U/L Normal [facility] Comment on above: Result Comment: The reference range and other method performance specifications have not been established for this test in fluids. the test result should be integrated into the clinical context for interpretation. Performed By: #### L [id number] ####[facility] ([facility])[address] [place] [address] NON-HEEL REDUCER CYTOLOGY - CELLULAR EXAMon 12-24-2023 LAB AP CASE REPORT Normal [facility] Comment on above: Result Comment: Non- gynecologic Cytology Case: [id number] Provider: Rian Butts MD Collected: 12/24/2023 1626Ordering Location: [facility] Received: 12/25/2023 1238Pathologist: BRIANA Neripecimen: Pleural fluid, left Performed By: #### L [id number] ####[facility] ([facility])[address] [place] [address] LAB AP CLINICAL INFORMATION Normal [facility] Comment on above: Result Comment: Left pleural effusion Performed By: #### L [id number] ####[facility] ([facility])[address] [place] [address] LAB AP GROSS DESCRIPTION Normal [facility] Comment on above: Result Comment: 400 mL cloudy, red fluid Performed By: #### L [id number] ####[facility] ([facility])[address] [place] [address] LAB AP REPORT FINAL DIAGNOSIS NARRATIVE Normal [facility] Comment on above: Result Comment: A. P leural fluid, left: - Negative for malignancy. - Marked acute inflammation. Performed By: #### L [id number] ####[facility] ([facility])[address] [place] [address] PATHOLOGY REVIEWon PATHOLOGY REVIEW Reviewed. Normal [facility] Comment on above: Result Comment: Elec tronically signed by Jarrod Sales MD on 12/25/23 at 2:30 PM. Performed By: #### L [id number] ####[facility] ([facility])[address] [place] [address] POCT GLUCOSE METER UNSOLICIT ED RESULTSon 12-24-2023 Glucose [Mass/Vol] 176 mg/dL High 70-105 [facility] Comment on above: Order Comment: Waive d Testing in the ED is performed under the ED CLIA certificate #[id number]. Result Comment: [email or web address] Performed By: #### L [id number] ####[facility] ([facility])[address] [place] [address] Glucose [Mass/Vol] 135 mg/dL High 70-105 [facility] Comment on above: Order Comment: Waive d Testing in the ED is performed under the ED CLIA certificate #[id number]. Result Comment: [email or web address] Performed By: #### L [id number] ####[facility] ([facility])[address] [place] [address] Glucose [Mass/Vol] 128 mg/dL High 70-105 [facility] Comment on above: Order Comment: Waive d Testing in the ED is performed under the ED CLIA certificate #[id number]. Result Comment: [email or web address] Performed By: #### L [id number] ####[facility] ([facility])[address] [place] [address] PROTEIN, BODY FLUIDon 2023 Protein (Body fld) [Mass/Vol] 3.6 g/dL [facility] Comment on above: Result Comment: The reference range and other method performance specifications have not been established for this test in fluids. the test result should be integrated into the clinical context for interpretation. Performed By: #### L [id number] ####[facility] ([facility])[address] [place] [address] PROTIME-INRon 12-24-2023 INR IN PPP BY COAGULATION ASSAY 1.28 High 0.90-1.10 [facility] Comment on above: Result Comment: ACCC P RECOMMENDED INR FOR WARFARIN THERAPY CONDITION INRPROPHYLAXIS OF VENOUS THROMBOSIS 2-3(HIGH-RISK SURGERY)TREATMENT OF VENOUS THROMBOSIS 2-3TREATMENT OF PULMONARY EMBOLISM 2-3PREVENTION OF SYSTEMIC EMBOLISM: 2-3 ACUTE MYOCARDIAL INFARCTION TISSUE HEART VALVES VALVULAR HEART DISEASE ATRIAL FIBRILLATION RECURRENT SYSTEMIC EMBOLISMMECHANICAL HEART VALVE 2.5-3.5 FROM: ORAL ANTICOAGULANTS. MECHANISM OF ACTION, CLINICAL EFFECTIVENESS, AND OPTIMAL THERAPEUTIC RANGE. CHEST 1995;108:231S-246S. Performed By: #### L [id number] ####[facility])[address] [place] [address] PROTHROMBIN TIME (PT) IN PPP BY COAGULATION ASSAY 15.9 Seconds High 12.3-14.8 [facility] Comment on above: Performed By: #### L [id number] ####[facility])[address] [place] [address] TRIGLYCERIDES, BODY FLUIDon 12-24-2023 TRIGLYCERIDES (MG/DL) IN BODY FLUID 25 mg/dL Normal [facility] Comment on above: Performed By: #### L [id number] ####[facility])[address] [place] [address] VITAMIN Con 12-24-2023 VITAMIN C LEVEL 54 umol/L Normal 23-114 [facility] Comment on above: Result Comment: Rachael min C concentrations lower than 11 umol/L indicate deficiency.Concentrations between 11 and 23 umol/L are consistent with amoderate risk of deficiency due to inadequate tissue stores.Vitamin C concentration is reported as micromoles per liter(umol/L). To convert concentration to milligrams per deciliter(mg/dL), multiply the result by 0.0176.This test was developed and its performance characteristicsdetermined by [employer]. It has not been cleared orapproved by the [place] Food and Drug Administration. This test wasperformed in a CLIA certified laboratory and is intended forclinical purposes.Performed By: [facility] [place], [place] [id number] Director: Leeroy Shah MD, PhDCLIA Number: [id number] Performed By: #### L [id number] ####[facility] ([facility]AK[facility])[address] [place] [address] 30on 12-23-2023 30 Normal [facility] 30 [facility] 30 [facility] 30 The patient is Moder ately Stable - Low risk of patient condition declining or worsening The patient's goals for the shift include comfort The clinical goals for the shift include safety Normal [facility] BASIC METABOLIC PANELon 10-0 Anion gap [Moles/Vol] 9 mmol/L Normal 7-20 [facility] Comment on above: Performed By: #### L [id number] ####[facility] ([facility])[address] [place] [address] Calcium [Mass/Vol] 7.9 mg/dL Low 8.6-10.3 [facility] Comment on above: Performed By: #### L [id number] ####[facility] ([facility])[address] [place] [address] Chloride [Moles/Vol] 105 mmol/L Normal 98-107 [facility] Comment on above: Performed By: #### L [id number] ####[facility] ([facility])[address] [place] [address] CO2 [Moles/Vol] 26 mmol/L Normal 21-31 [facility] Comment on above: Performed By: #### L [id number] ####[facility] ([facility])[address] [place] [place] [address] Creatinine [Mass/Vol] 0.71 mg/dL Normal 0.60-1.20 [facility] Comment on above: Performed By: #### L [id number] ####[facility] ([facility])[address] [place] [place] [address] GLOMERULAR FILTRATION RATE ML/MIN/1.73 SQ M.PREDICTED 96.1 mL/min/1.73m*2 Normal >60.0 [facility] Comment on above: Result Comment: The [facility]???s estimated glomerular filtration rate (eGFR) will no longer include consideration of race in its calculation. The National Kidney Foundation???s eGFR Task Force developed new recommendations for the estimation of the glomerular filtration rate in the [place] They recommend immediate implementation of the new equation refit without the race variable in all laboratories because the calculation does not include race. In addition to not including race in the calculation and reporting, it included diversity in its development, and has acceptable performance characteristics and potential consequences that do not disproportionately affect any one group of individuals. Performed By: #### L [id number] ####[facility] ([facility])[address] [place] [place] [address] Glucose [Mass/Vol] 76 mg/dL Normal 70-100 [facility] Comment on above: Performed By: #### L [id number] ####[facility] ([facility])[address] [place] [place] [address] Potassium [Moles/Vol] 4.4 mmol/L Normal 3.5-5.1 [facility] Comment on above: Performed By: #### L [id number] ####[facility] ([facility])[address] [place] [place] [address] Sodium [Moles/Vol] 136 mmol/L Normal 136-145 [facility] Comment on above: Performed By: #### L [id number] ####[facility] ([facility])[address] [place] [place] [address] Urea nitrogen [Mass/Vol] 17 mg/dL Normal 7-25 [facility] Comment on above: Performed By: #### L [id number] ####[facility] ([facility])[address] [place] [address] UREA NITROGEN/CREATININE (MASS RATIO) IN SER/PLAS 23.9 Normal [facility] Comment on above: Performed By: #### L [id number] ####[facility] ([facility])[address] [place] [address] CBCon 12-23-2023 Erythrocyte distribution width (RBC) [Ratio] 15.7 % High 11.5-15.0 [facility] Comment on above: Performed By: #### L [id number] ####[facility] ([facility])[address] [place] [address] ERYTHROCYTE MEAN CORPUSCULAR HEMOGLOBIN CONCENTRATION (G/DL) BY AUTOMATED 31.6 g/dL Low 32.0-35.0 [facility] Comment on above: Performed By: #### L [id number] ####[facility] ([facility])[address] [place] [address] Hematocrit (Bld) [Volume fraction] 22.5 % Low 36.0-48.0 [facility] Comment on above: Performed By: #### L [id number] ####[facility] ([facility] [place] [place] [address] Hemoglobin (Bld) [Mass/Vol] 7.1 g/dL Low 12.0-15.0 [facility] Comment on above: Performed By: #### L [id number] ####[facility] ([facility] [place] [place] [address] MCH (RBC) [Entitic mass] 32.0 pg Normal 27.0-33.0 [facility] Comment on above: Performed By: #### L [id number] ####[facility] ([facility])[address] [place] [place] [address] MCV (RBC) [Entitic vol] 101.4 fL High 82.0-98.0 [facility] Comment on above: Performed By: #### L [id number] ####[facility] ([facility])[address] [place] [place] [address] PLATELETS (10*3/UL) IN BLOOD AUTOMATED COUNT 355 10*3/uL Normal 150-400 [facility] Comment on above: Performed By: #### L [id number] ####[facility] ([facility])[address] [place] [place] [address] RBC (Bld) [#/Vol] 2.22 10*6/uL Low 3.80-5.00 [facility] Comment on above: Performed By: #### L [id number] ####[facility] ([facility])[address] [place] [address] WBC (Bld) [#/Vol] 8.18 10*3/uL Normal 4.00-10.60 [facility] Comment on above: Performed By: #### L [id number] ####[facility] ([facility])[address] [place], [place] [address] CT CHEST WO IV CONTRASTon CT CHEST WO IV CONTRAST Invalid Interpretation Code [facility] MAGNESIUMon 12-23-2023 Magnesium [Mass/Vol] 2.4 mg/dL Normal 1.9-2.7 [facility] Comment on above: Performed By: #### L [id number] ####[facility] ([facility])[address] [place] [place] [address] POCT GLUCOSE METER UNSOLICIT ED RESULTSon 12-23-2023 Glucose [Mass/Vol] 143 mg/dL High 70-105 [facility] Comment on above: Order Comment: Waive d Testing in the ED is performed under the ED CLIA certificate #[id number]. Result Comment: larry [email or web address] Performed By: #### L [id number] ####[facility] ([facility])[address] [place] [address] Glucose [Mass/Vol] 159 mg/dL High 70-105 [facility] Comment on above: Order Comment: Waive d Testing in the ED is performed under the ED CLIA certificate #[id number]. Result Comment: jennifer meadowso Performed By: #### L [id number] ####[facility] ([facility])[address] [place] [address] Glucose [Mass/Vol] 130 mg/dL High 70-105 [facility] Comment on above: Order Comment: Waive d Testing in the ED is performed under the ED CLIA certificate #[id number]. Result Comment: [email or web address] Performed By: #### L [id number] ####[facility] ([facility])[address] [place] [address] Glucose [Mass/Vol] 118 mg/dL High 70-105 [facility] Comment on above: Order Comment: Waive d Testing in the ED is performed under the ED CLIA certificate #[id number]. Result Comment: [email or web address] Performed By: #### L [id number] ####[facility] ([facility])[address] [place] [address] VITAMIN Con 12-23-2023 VITAMIN C LEVEL 43 umol/L Normal 23-114 [facility] Comment on above: Result Comment: Rachael min C concentrations lower than 11 umol/L indicate deficiency.Concentrations between 11 and 23 umol/L are consistent with amoderate risk of deficiency due to inadequate tissue stores.Vitamin C concentration is reported as micromoles per liter(umol/L). To convert concentration to milligrams per deciliter(mg/dL), multiply the result by 0.0176.This test was developed and its performance characteristicsdetermined by [facility] [employer]. It has not been cleared orapproved by the [place] Food and Drug Administration. This test wasperformed in a CLIA certified laboratory and is intended forclinical purposes.Performed By: [facility] [place] [id number] Director: Leeroy Shah MD, PhDCLIA Number: [id number] Performed By: #### L [id number] ####[employer] ([facility])[address] [place] [address] 30on 12-22-2023 30 Normal [facility] 30 Normal [facility] 30 The patient is Moder ately Stable - Low risk of patient condition declining or worsening The patient's goals for the shift include comfort The clinical goals for the shift include safety Normal [facility] BASIC METABOLIC PANELon 09 Anion gap [Moles/Vol] 11 mmol/L Normal 7-20 [facility] Comment on above: Performed By: #### L [id number] ####[facility] ([facility])[address] [place] [address] Calcium [Mass/Vol] 8.2 mg/dL Low 8.6-10.3 [facility] Comment on above: Performed By: #### L [id number] ####[facility] ([facility])[address] [place] [address] Chloride [Moles/Vol] 103 mmol/L Normal 98-107 [facility] Comment on above: Performed By: #### L [id number] ####[facility] ([facility])[address] [place] [address] CO2 [Moles/Vol] 28 mmol/L Normal 21-31 [facility] Comment on above: Performed By: #### L [id number] ####[facility] ([facility])[address] [place] [address] Creatinine [Mass/Vol] 0.71 mg/dL Normal 0.60-1.20 [facility] Comment on above: Performed By: #### L [id number] ####[facility] ([facility])[address] [place] [address] GLOMERULAR FILTRATION RATE ML/MIN/1.73 SQ M.PREDICTED 96.1 mL/min/1.73m*2 Normal >60.0 [facility] Comment on above: Result Comment: The [facility]???s estimated glomerular filtration rate (eGFR) will no longer include consideration of race in its calculation. The National Kidney Foundation???s eGFR Task Force developed new recommendations for the estimation of the glomerular filtration rate in the [place] They recommend immediate implementation of the new equation refit without the race variable in all laboratories because the calculation does not include race. In addition to not including race in the calculation and reporting, it included diversity in its development, and has acceptable performance characteristics and potential consequences that do not disproportionately affect any one group of individuals. Performed By: #### L [id number] ####[facility] ([facility])[address] [place] [address] Glucose [Mass/Vol] 103 mg/dL High 70-100 [facility] Comment on above: Performed By: #### L [id number] ####[facility] ([facility])[address] [place] [address] Potassium [Moles/Vol] 3.7 mmol/L Normal 3.5-5.1 [facility] Comment on above: Performed By: #### L [id number] ####[facility] ([facility])[address] [place] [address] Sodium [Moles/Vol] 138 mmol/L Normal 136-145 [facility] Comment on above: Performed By: #### L [id number] ####[facility] ([facility])[address] [facility] [address] Urea nitrogen [Mass/Vol] 16 mg/dL Normal 7-25 [facility] Comment on above: Performed By: #### L [id number] ####[facility] ([facility])[address] [place] [address] UREA NITROGEN/CREATININE (MASS RATIO) IN SER/PLAS 22.5 Normal [facility] Comment on above: Performed By: #### L [id number] ####[facility] ([facility])[address] [place] [address] CBCon 12-22-2023 Erythrocyte distribution width (RBC) [Ratio] 14.5 % Normal 11.5-15.0 [facility] Comment on above: Performed By: #### L [id number] ####[facility] ([facility])[address] [place] [address] ERYTHROCYTE MEAN CORPUSCULAR HEMOGLOBIN CONCENTRATION (G/DL) BY AUTOMATED 31.5 g/dL Low 32.0-35.0 [facility] Comment on above: Performed By: #### L [id number] ####[facility] ([facility])[address] [place] [place] [address] Hematocrit (Bld) [Volume fraction] 25.1 % Low 36.0-48.0 [facility] Comment on above: Performed By: #### L [id number] ####[facility] ([facility])[address] [place] [place] [address] Hemoglobin (Bld) [Mass/Vol] 7.9 g/dL Low 12.0-15.0 [facility] Comment on above: Performed By: #### L [id number] ####[facility] ([facility])[address] [place] [place] [address] MCH (RBC) [Entitic mass] 32.1 pg Normal 27.0-33.0 [facility] Comment on above: Performed By: #### L [id number] ####[facility] ([facility])[address] [place] [place] [address] MCV (RBC) [Entitic vol] 102.0 fL High 82.0-98.0 [facility] Comment on above: Performed By: #### L [id number] ####[facility] ([facility])[address] [place] [place] [address] PLATELETS (10*3/UL) IN BLOOD AUTOMATED COUNT 338 10*3/uL Normal 150-400 [facility] Comment on above: Performed By: #### L [id number] ####[facility] ([facility])[address] [place] [place] [address] RBC (Bld) [#/Vol] 2.46 10*6/uL Low 3.80-5.00 [facility] Comment on above: Performed By: #### L [id number] ####[facility] ([facility])[address] [place] [place] [address] WBC (Bld) [#/Vol] 7.31 10*3/uL Normal 4.00-10.60 [facility] Comment on above: Performed By: #### L [id number] ####[facility] ([facility])[address] [place] [address] MAGNESIUMon 12-22-2023 Magnesium [Mass/Vol] 2.2 mg/dL Normal 1.9-2.7 [facility] Comment on above: Performed By: #### L [id number] ####[facility] ([facility])[address] [place] [place] [address] POCT GLUCOSE METER UNSOLICIT ED RESULTSon 12-22-2023 Glucose [Mass/Vol] 158 mg/dL High 70-105 [facility] Comment on above: Order Comment: Waive d Testing in the ED is performed under the ED CLIA certificate #[id number]. Result Comment: [email or web address] Performed By: #### L [id number] ####[facility] ([facility])[address] [place] [address] Glucose [Mass/Vol] 129 mg/dL High 70-105 [facility] Comment on above: Order Comment: Waive d Testing in the ED is performed under the ED CLIA certificate #[id number]. Result Comment: [email or web address] od Performed By: #### L [id number] ####[facility] ([facility])[address] [facility] [address] Glucose [Mass/Vol] 175 mg/dL High 70-105 [facility] Comment on above: Order Comment: Waive d Testing in the ED is performed under the ED CLIA certificate #[id number]. Result Comment: [email or web address] Performed By: #### L [id number] ####[facility] ([facility])[address] [facility] [address] Glucose [Mass/Vol] 100 mg/dL Normal 70-105 [facility] Comment on above: Order Comment: Waive d Testing in the ED is performed under the ED CLIA certificate #[id number]. Result Comment: [email or web address] Performed By: #### L [id number] ####[facility] ([facility])[address] [place] [address] VITAMIN Con 12-22-2023 VITAMIN C LEVEL 35 umol/L Normal 23-114 [facility] Comment on above: Result Comment: Rachael min C concentrations lower than 11 umol/L indicate deficiency.Concentrations between 11 and 23 umol/L are consistent with amoderate risk of deficiency due to inadequate tissue stores.Vitamin C concentration is reported as micromoles per liter(umol/L). To convert concentration to milligrams per deciliter(mg/dL), multiply the result by 0.0176.This test was developed and its performance characteristicsdetermined by [employer]. It has not been cleared orapproved by the [place] Food and Drug Administration. This test wasperformed in a CLIA certified laboratory and is intended forclinical purposes.Performed By: [facility] [place], [place] [address]Zeessgedcy Director: Leeroy Shah MD, PhDCLIA Number: [id number] Performed By: #### L [id number] ####[facility] ([facility])[address] [place] [address] 30on 12-21-2023 30 Normal [facility] 30 Normal [facility] BASIC METABOLIC PANELon 11-23 Anion gap [Moles/Vol] 11 mmol/L Normal 7-20 [facility] Comment on above: Performed By: #### L [id number] ####[facility] ([facility])[address] [place] [address] Calcium [Mass/Vol] 8.0 mg/dL Low 8.6-10.3 [facility] Comment on above: Performed By: #### L [id number] ####[facility] ([facility])[address] [place] [address] Chloride [Moles/Vol] 104 mmol/L Normal 98-107 [facility] Comment on above: Performed By: #### L [id number] ####[facility] ([facility])[address] [place] [address] CO2 [Moles/Vol] 26 mmol/L Normal 21-31 [facility] Comment on above: Performed By: #### L [id number] ####[facility] ([facility])[address] [place] [address] Creatinine [Mass/Vol] 0.62 mg/dL Normal 0.60-1.20 [facility] Comment on above: Performed By: #### L [id number] ####[facility] ([facility])[address] [place] [address] GLOMERULAR FILTRATION RATE ML/MIN/1.73 SQ M.PREDICTED 100.6 mL/min/1.73m*2 Normal >60.0 [facility] Comment on above: Result Comment: [facility]???s estimated glomerular filtration rate (eGFR) will no longer include consideration of race in its calculation. The National Kidney Foundation???s eGFR Task Force developed new recommendations for the estimation of the glomerular filtration rate in the [place] They recommend immediate implementation of the new equation refit without the race variable in all laboratories because the calculation does not include race. In addition to not including race in the calculation and reporting, it included diversity in its development, and has acceptable performance characteristics and potential consequences that do not disproportionately affect any one group of individuals. Performed By: #### L [id number] ####[facility] ([facility])[address] [place] [address] Glucose [Mass/Vol] 93 mg/dL Normal 70-100 [facility] Comment on above: Performed By: #### L [id number] ####[facility] ([facility])[address] [place] [address] Potassium [Moles/Vol] 4.2 mmol/L Normal 3.5-5.1 [facility] Comment on above: Performed By: #### L [id number] ####[facility] ([facility])[address] [place] [place] [address] Sodium [Moles/Vol] 137 mmol/L Normal 136-145 [facility] Comment on above: Performed By: #### L [id number] ####[facility] ([facility] [place] [address] Urea nitrogen [Mass/Vol] 17 mg/dL Normal 7-25 [facility] Comment on above: Performed By: #### L [id number] ####[facility] ([facility] [place] [address] UREA NITROGEN/CREATININE (MASS RATIO) IN SER/PLAS 27.4 Normal [facility] Comment on above: Performed By: #### L [id number] ####[facility] ([facility])[address] [place] [place] [address] CBCon 12-21-2023 Erythrocyte distribution width (RBC) [Ratio] 14.2 % Normal 11.5-15.0 [facility] Comment on above: Performed By: #### L [id number] ####[facility] ([facility])[address] [place] [address] ERYTHROCYTE MEAN CORPUSCULAR HEMOGLOBIN CONCENTRATION (G/DL) BY AUTOMATED 31.1 g/dL Low 32.0-35.0 [facility] Comment on above: Performed By: #### L [id number] ####[facility] ([facility])[address] [place] [address] Hematocrit (Bld) [Volume fraction] 21.9 % Low 36.0-48.0 [facility] Comment on above: Performed By: #### L [id number] ####[facility] ([facility])[address] [place] [address] Hemoglobin (Bld) [Mass/Vol] 6.8 g/dL Low 12.0-15.0 [facility] Comment on above: Performed By: #### L [id number] ####[facility] ([facility])[address] [place] [address] MCH (RBC) [Entitic mass] 31.1 pg Normal 27.0-33.0 [facility] Comment on above: Performed By: #### L [id number] ####[facility] ([facility] [place] [address] MCV (RBC) [Entitic vol] 100.0 fL High 82.0-98.0 [facility] Comment on above: Performed By: #### L [id number] ####[facility] ([facility])[address] [place] [address] PLATELETS (10*3/UL) IN BLOOD AUTOMATED COUNT 300 10*3/uL Normal 150-400 [facility] Comment on above: Performed By: #### L [id number] ####[facility] ([facility])[address] [place] [address] RBC (Bld) [#/Vol] 2.19 10*6/uL Low 3.80-5.00 [facility] Comment on above: Performed By: #### L [id number] ####[facility] ([facility])[address] [place] [address] WBC (Bld) [#/Vol] 6.04 10*3/uL Normal 4.00-10.60 [facility] Comment on above: Performed By: #### L [id number] ####[facility] ([facility])[address] [place] [address] MAGNESIUMon 12-21-2023 Magnesium [Mass/Vol] 2.3 mg/dL Normal 1.9-2.7 [facility] Comment on above: Performed By: #### L [id number] ####[facility] ([facility])[address] [place] [address] POCT GLUCOSE METER UNSOLICIT ED RESULTSon 12-21-2023 Glucose [Mass/Vol] 189 mg/dL High 70-105 [facility] Comment on above: Order Comment: Waive d Testing in the ED is performed under the ED CLIA certificate #[id number]. Result Comment: [email or web address] Performed By: #### L [id number] ####[facility] ([facility])[address] [place] [address] Glucose [Mass/Vol] 85 mg/dL Normal 70-105 [facility] Comment on above: Order Comment: Waive d Testing in the ED is performed under the ED CLIA certificate #[id number]. Result Comment: [email or web address] [email or web address] Performed By: #### L [id number] ####[facility] ([facility])[address] [place] [address] Glucose [Mass/Vol] 229 mg/dL High 70-105 [facility] Comment on above: Order Comment: Waive d Testing in the ED is performed under the ED CLIA certificate #[id number]. Result Comment: [email or web address] [email or web address] Performed By: #### L [id number] ####[facility] ([facility])[address] [place] [address] Glucose [Mass/Vol] 142 mg/dL High 70-105 [facility] Comment on above: Order Comment: Waive d Testing in the ED is performed under the ED CLIA certificate #[id number]. Result Comment: [email or web address] [email or web address] Performed By: #### L [id number] ####[facility] ([facility] [place] [address] VITAMIN Con 12-21-2023 VITAMIN C LEVEL 24 umol/L Normal 23-114 [facility] Comment on above: Result Comment: Rachael min C concentrations lower than 11 umol/L indicate deficiency.Concentrations between 11 and 23 umol/L are consistent with amoderate risk of deficiency due to inadequate tissue stores.Vitamin C concentration is reported as micromoles per liter(umol/L). To convert concentration to milligrams per deciliter(mg/dL), multiply the result by 0.0176.This test was developed and its performance characteristicsdetermined by [employer]. It has not been cleared orapproved by the [place] Food and Drug Administration. This test wasperformed in a CLIA certified laboratory and is intended forclinical purposes.Performed By: [facility] [employer] [place] [id number] Director: Leeroy Shah MD, PhDCLIA Number: [id number] Performed By: #### L [id number] ####[facility] ([facility])[address] [place] [address] MAGNESIUMon 12-20-2023 Magnesium [Mass/Vol] 2.2 mg/dL Normal 1.9-2.7 [facility] Comment on above: Performed By: #### L [id number] ####[facility] ([facility] [place] [address] POCT GLUCOSE METER UNSOLICIT ED RESULTSon 12-20-2023 Glucose [Mass/Vol] 140 mg/dL High 70-105 [facility] Comment on above: Order Comment: Waive d Testing in the ED is performed under the ED CLIA certificate #[id number]. Result Comment: [email or web address] Performed By: #### L [id number] ####[facility] ([facility])[address] [place] [address] Glucose [Mass/Vol] 152 mg/dL High 70-105 [facility] Comment on above: Order Comment: Waive d Testing in the ED is performed under the ED CLIA certificate #[id number]. Result Comment: [email or web address] dic Performed By: #### L [id number] ####[facility] ([facility])[address] [place] [address] Glucose [Mass/Vol] 193 mg/dL High 70-105 [facility] Comment on above: Order Comment: Waive d Testing in the ED is performed under the ED CLIA certificate #[id number]. Result Comment: dcun dic Performed By: #### L [id number] ####[facility] ([facility])[address] [place] [address] Glucose [Mass/Vol] 119 mg/dL High 70-105 [facility] Comment on above: Order Comment: Waive d Testing in the ED is performed under the ED CLIA certificate #[id number]. Result Comment: dcun dic Performed By: #### L [id number] ####[facility] ([facility] [place] [address] 30on 12-19-2023 30 The patient is Moder ately Stable - Low risk of patient condition declining or worsening The patient's goals for the shift include comfort The clinical goals for the shift include safety Normal [facility] 30 Normal [facility] 30 Normal [facility] 30 Normal [facility] BASIC METABOLIC PANELon 09 Anion gap [Moles/Vol] 7 mmol/L Normal 7-20 [facility] Comment on above: Performed By: #### L [id number] ####[facility] ([facility])[address] [place] [place] [address] Calcium [Mass/Vol] 8.1 mg/dL Low 8.6-10.3 [facility] Comment on above: Performed By: #### L [id number] ####[facility] [facility] ([facility])[address] [place] [place] [address] Chloride [Moles/Vol] 103 mmol/L Normal 98-107 [facility] Comment on above: Performed By: #### L [id number] ####[facility] ([facility])[address] [place] [address] CO2 [Moles/Vol] 27 mmol/L Normal 21-31 [facility] Comment on above: Performed By: #### L [id number] ####[facility] ([facility])[address] [place] [address] Creatinine [Mass/Vol] 0.65 mg/dL Normal 0.60-1.20 [facility] Comment on above: Performed By: #### L [id number] ####[facility] ([facility])[address] [facility] [place] [place] [address] GLOMERULAR FILTRATION RATE ML/MIN/1.73 SQ M.PREDICTED 99.5 mL/min/1.73m*2 Normal >60.0 [facility] Comment on above: Result Comment: [facility]???s estimated glomerular filtration rate (eGFR) will no longer include consideration of race in its calculation. The National Kidney Foundation???s eGFR Task Force developed new recommendations for the estimation of the glomerular filtration rate in the [place] They recommend immediate implementation of the new equation refit without the race variable in all laboratories because the calculation does not include race. In addition to not including race in the calculation and reporting, it included diversity in its development, and has acceptable performance characteristics and potential consequences that do not disproportionately affect any one group of individuals. Performed By: #### L [id number] ####[facility] ([facility])[address] [place] [address] Glucose [Mass/Vol] 116 mg/dL High 70-100 [facility] Comment on above: Performed By: #### L [id number] ####[facility] ([facility])[address] [place] [address] Potassium [Moles/Vol] 4.1 mmol/L Normal 3.5-5.1 [facility] Comment on above: Performed By: #### L [id number] ####[facility] ([facility] [place] [address] Sodium [Moles/Vol] 133 mmol/L Low 136-145 [facility] Comment on above: Performed By: #### L [id number] ####[facility] ([facility])[address] [place] [address] Urea nitrogen [Mass/Vol] 20 mg/dL Normal 7-25 [facility] Comment on above: Performed By: #### L [id number] ####[facility] [place] [address] UREA NITROGEN/CREATININE (MASS RATIO) IN SER/PLAS 30.8 Normal [facility] Comment on above: Performed By: #### L [id number] ####[facility] ([facility])[address] [place] [address] CBCon 12-19-2023 Erythrocyte distribution width (RBC) [Ratio] 13.2 % Normal 11.5-15.0 [facility] Comment on above: Performed By: #### L [id number] ####[facility] ([facility] [place] [address] ERYTHROCYTE MEAN CORPUSCULAR HEMOGLOBIN CONCENTRATION (G/DL) BY AUTOMATED 32.4 g/dL Normal 32.0-35.0 [facility] Comment on above: Performed By: #### L [id number] ####[facility] ([facility])[address] [place] [place] [address] Hematocrit (Bld) [Volume fraction] 21.6 % Low 36.0-48.0 [facility] Comment on above: Performed By: #### L [id number] ####[facility] ([facility])[address] [place] [address] Hemoglobin (Bld) [Mass/Vol] 7.0 g/dL Low 12.0-15.0 [facility] Comment on above: Performed By: #### L [id number] ####[facility] ([facility])[address] [place] [address] MCH (RBC) [Entitic mass] 31.5 pg Normal 27.0-33.0 [facility] Comment on above: Performed By: #### L [id number] ####[facility] ([facility])[address] [place] [place] [address] MCV (RBC) [Entitic vol] 97.3 fL Normal 82.0-98.0 [facility] Comment on above: Performed By: #### L [id number] ####[facility] ([facility])[address] [place] [place] [address] PLATELETS (10*3/UL) IN BLOOD AUTOMATED COUNT 183 10*3/uL Normal 150-400 [facility] Comment on above: Performed By: #### L [id number] ####[facility] ([facility])[address] [place] [address] RBC (Bld) [#/Vol] 2.22 10*6/uL Low 3.80-5.00 [facility] Comment on above: Performed By: #### L [id number] ####[facility] ([facility])[address] [place] [address] WBC (Bld) [#/Vol] 6.45 10*3/uL Normal 4.00-10.60 [facility] Comment on above: Performed By: #### L [id number] ####[facility] ([facility] [place] [address] MAGNESIUMon 12-19-2023 Magnesium [Mass/Vol] 2.1 mg/dL Normal 1.9-2.7 [facility] Comment on above: Performed By: #### L [id number] ####[facility] ([facility])[address] [place] [address] POCT GLUCOSE METER UNSOLICIT ED RESULTSon 12-19-2023 Glucose [Mass/Vol] 181 mg/dL High 70-105 [facility] Comment on above: Order Comment: Waive d Testing in the ED is performed under the ED CLIA certificate #[id number]. Result Comment: [email or web address] Performed By: #### L [id number] ####[facility] ([facility])[address] [place] [address] Glucose [Mass/Vol] 148 mg/dL High 70-105 [facility] Comment on above: Order Comment: Waive d Testing in the ED is performed under the ED CLIA certificate #[id number]. Result Comment: bflo od Performed By: #### L [id number] ####[facility] ([facility])[address] [place] [address] Glucose [Mass/Vol] 204 mg/dL High 70-105 [facility] Comment on above: Order Comment: Waive d Testing in the ED is performed under the ED CLIA certificate #[id number]. Result Comment: bflo od Performed By: #### L [id number] ####[facility] ([facility] [place] [address] Glucose [Mass/Vol] 150 mg/dL High 70-105 [facility] Comment on above: Order Comment: Waive d Testing in the ED is performed under the ED CLIA certificate #[id number]. Result Comment: bflo od Performed By: #### L [id number] ####[facility] ([facility])[address] [place] [address] 30on 12-18-2023 30 Normal [facility] 30 Normal [facility] ALBUMINon 12-18-2023 Albumin [Mass/Vol] 3.2 g/dL Low 3.5-5.7 [facility] Comment on above: Performed By: #### L [id number] ####[facility] ([facility])[address] [place] [address] BASIC METABOLIC PANELon 11-23 Anion gap [Moles/Vol] 7 mmol/L Normal 7-20 [facility] Comment on above: Performed By: #### L [id number] ####[facility] ([facility] [place] [place] [address] Calcium [Mass/Vol] 8.4 mg/dL Low 8.6-10.3 [facility] Comment on above: Performed By: #### L [id number] ####[facility] ([facility] [place] [place] [address] Chloride [Moles/Vol] 103 mmol/L Normal 98-107 [facility] Comment on above: Performed By: #### L [id number] ####[facility] ([facility])[address] [place] [place] [address] CO2 [Moles/Vol] 27 mmol/L Normal 21-31 [facility] Comment on above: Performed By: #### L [id number] ####[facility] ([facility])[address] [place] [place] [address] Creatinine [Mass/Vol] 0.72 mg/dL Normal 0.60-1.20 [facility] Comment on above: Performed By: #### L [id number] ####[facility] ([facility])[address] [place] [place] [address] GLOMERULAR FILTRATION RATE ML/MIN/1.73 SQ M.PREDICTED 94.5 mL/min/1.73m*2 Normal >60.0 [facility] Comment on above: Result Comment: [facility]???s estimated glomerular filtration rate (eGFR) will no longer include consideration of race in its calculation. The National Kidney Foundation???s eGFR Task Force developed new recommendations for the estimation of the glomerular filtration rate in the [place] They recommend immediate implementation of the new equation refit without the race variable in all laboratories because the calculation does not include race. In addition to not including race in the calculation and reporting, it included diversity in its development, and has acceptable performance characteristics and potential consequences that do not disproportionately affect any one group of individuals. Performed By: #### L [id number] ####[facility] ([facility])[address] [place] [address] Glucose [Mass/Vol] 122 mg/dL High 70-100 [facility] Comment on above: Performed By: #### L [id number] ####[facility] ([facility])[address] [place] [address] Potassium [Moles/Vol] 4.2 mmol/L Normal 3.5-5.1 [facility] Comment on above: Performed By: #### L [id number] ####[facility] ([facility])[address] [place] [address] Sodium [Moles/Vol] 133 mmol/L Low 136-145 [facility] Comment on above: Performed By: #### L [id number] ####[facility] ([facility])[address] [place] [address] Urea nitrogen [Mass/Vol] 20 mg/dL Normal 7-25 [facility] Comment on above: Performed By: #### L [id number] ####[facility] ([facility])[address] [place] [address] UREA NITROGEN/CREATININE (MASS RATIO) IN SER/PLAS 27.8 Normal [facility] Comment on above: Performed By: #### L [id number] ####[facility] ([facility])[address] [place] [address] CBCon 12-18-2023 Erythrocyte distribution width (RBC) [Ratio] 13.1 % Normal 11.5-15.0 [facility] Comment on above: Performed By: #### L [id number] ####[facility] ([facility])[address] [place] [address] ERYTHROCYTE MEAN CORPUSCULAR HEMOGLOBIN CONCENTRATION (G/DL) BY AUTOMATED 32.8 g/dL Normal 32.0-35.0 [facility] Comment on above: Performed By: #### L [id number] ####[facility] ([facility])[address] [place] [place] [address] Hematocrit (Bld) [Volume fraction] 22.9 % Low 36.0-48.0 [facility] Comment on above: Performed By: #### L [id number] ####[facility] ([facility])[address] [place] [place] [address] Hemoglobin (Bld) [Mass/Vol] 7.5 g/dL Low 12.0-15.0 [facility] Comment on above: Performed By: #### L [id number] ####[facility] ([facility])[address] [place] [place] [address] MCH (RBC) [Entitic mass] 31.5 pg Normal 27.0-33.0 [facility] Comment on above: Performed By: #### L [id number] ####[facility] ([facility])[address] [place] [place] [address] MCV (RBC) [Entitic vol] 96.2 fL Normal 82.0-98.0 [facility] Comment on above: Performed By: #### L [id number] ####[facility] ([facility])[address] [place] [place] [address] PLATELETS (10*3/UL) IN BLOOD AUTOMATED COUNT 161 10*3/uL Normal 150-400 [facility] Comment on above: Performed By: #### L [id number] ####[facility] ([facility])[address] [place] [place] [address] RBC (Bld) [#/Vol] 2.38 10*6/uL Low 3.80-5.00 [facility] Comment on above: Performed By: #### L [id number] ####[facility] ([facility])[address] [place] [address] WBC (Bld) [#/Vol] 8.15 10*3/uL Normal 4.00-10.60 [facility] Comment on above: Performed By: #### L [id number] ####[facility] [place] [address] CT CHEST WO IV CONTRASTon CT CHEST WO IV CONTRAST Invalid Interpretation Code [facility] IRON AND TIBCon 12-18-2023 IRON (UG/DL) IN SER/PLAS 21 ug/dL Low 50-212 [facility] Comment on above: Performed By: #### L [id number] ####[facility] ([facility])[address] [place] [address] IRON BINDING CAPACITY (UG/DL) IN SER/PLAS 187 ug/dL Low 250-450 [facility] Comment on above: Performed By: #### L [id number] ####[facility] ([facility])[address] [place] [address] IRON BINDING CAPACITY.UNSATURATED (UG/DL) IN SER/PLAS 166.0 ug/dL Normal 155.0-355.0 [facility] Comment on above: Performed By: #### L [id number] ####[facility] ([facility])[address] [place] [address] IRON SATURATION (%) IN SER/PLAS 11 % Low 20-50 [facility] Comment on above: Performed By: #### L [id number] ####[facility] ([facility] [place] [address] MAGNESIUMon 12-18-2023 Magnesium [Mass/Vol] 2.0 mg/dL Normal 1.9-2.7 [facility] Comment on above: Performed By: #### L [id number] ####[facility] ([facility] [place] [address] NURSNOTEon 12-18-2023 NURSNOTE Normal [facility] NURSNOTE Normal [facility] NURSNOTE Normal [facility] POCT GLUCOSE METER UNSOLICIT ED RESULTSon 12-18-2023 Glucose [Mass/Vol] 138 mg/dL High 70-105 [facility] Comment on above: Order Comment: Waive d Testing in the ED is performed under the ED CLIA certificate #[id number]. Result Comment: [email or web address] [email or web address] Performed By: #### L [id number] ####[facility] ([facility])[address] [place] [address] Glucose [Mass/Vol] 163 mg/dL High 70-105 [facility] Comment on above: Order Comment: Waive d Testing in the ED is performed under the ED CLIA certificate #[id number]. Result Comment: [email or web address] Performed By: #### L [id number] ####[facility] ([facility])[address] [place] [address] Glucose [Mass/Vol] 118 mg/dL High 70-105 [facility] Comment on above: Order Comment: Waive d Testing in the ED is performed under the ED CLIA certificate #[id number]. Result Comment: [email or web address] Performed By: #### L [id number] ####[facility] ([facility])[address] [place] [address] Glucose [Mass/Vol] 160 mg/dL High 70-105 [facility] Comment on above: Order Comment: Waive d Testing in the ED is performed under the ED CLIA certificate #[id number]. Result Comment: [email or web address] Performed By: #### L [id number] ####[facility] ([facility])[address] [place] [address] PROCALCITONIN TESTon 024 PROCALCITONIN IN BLOOD 0.22 ng/mL High 0.00-0.10 [facility] Comment on above: Result Comment: Susp ected Lower Respiratory Tract Infection:0.1-0.25 ng/mL - Low likelihood for bacterial infection;Antibiotics discouraged.*>0.25 ng/mL - Increased likelihood bacterial infection;Antibiotics encouraged. Suspected Sepsis: Strongly consider initiating antibiotics in all unstable patients.0.1-0.5 ng/mL - Low likelihood for sepsis; Antibiotics discouraged.*>0.5 ng/mL - Increased likelihood sepsis; Antibiotics encouraged.>2.0 ng/mL - High risk of sepsis/septic shock; Antibiotics strongly encouraged. *Recommend retesting PCT within 6-12 hours if clinically indicated and initial PCT<0.5ng/mL Performed By: #### L [id number] ####[facility] ([facility])[address] [place] [address] TSHon 12-18-2023 THYROTROPIN (MIU/L) IN SER/PLAS BY DETECTION LIMIT <= 0.05 MIU/L 5.49 mIU/L Normal 0.34-5.60 [facility] Comment on above: Performed By: #### L [id number] ####[facility] ([facility])[address] [place] [address] 30on 12-17-2023 30 Normal [facility] BASIC METABOLIC PANELon 11-23 Anion gap [Moles/Vol] 8 mmol/L Normal 7-20 [facility] Comment on above: Performed By: #### L [id number] ####[facility] ([facility])[address] [place] [address] Calcium [Mass/Vol] 8.5 mg/dL Low 8.6-10.3 [facility] Comment on above: Performed By: #### L [id number] ####[facility] ([facility])[address] [place] [place] [address] Chloride [Moles/Vol] 104 mmol/L Normal 98-107 [facility] Comment on above: Performed By: #### L [id number] ####[facility] ([facility])[address] [place] [address] CO2 [Moles/Vol] 28 mmol/L Normal 21-31 [facility] Comment on above: Performed By: #### L [id number] ####[facility] ([facility])[address] [place] [place] [address] Creatinine [Mass/Vol] 0.68 mg/dL Normal 0.60-1.20 [facility] Comment on above: Performed By: #### L [id number] ####[facility] ([facility])[address] [place] [place] [address] GLOMERULAR FILTRATION RATE ML/MIN/1.73 SQ M.PREDICTED 98.4 mL/min/1.73m*2 Normal >60.0 [facility] Comment on above: Result Comment: [facility]???s estimated glomerular filtration rate (eGFR) will no longer include consideration of race in its calculation. The National Kidney Foundation???s eGFR Task Force developed new recommendations for the estimation of the glomerular filtration rate in the [place] They recommend immediate implementation of the new equation refit without the race variable in all laboratories because the calculation does not include race. In addition to not including race in the calculation and reporting, it included diversity in its development, and has acceptable performance characteristics and potential consequences that do not disproportionately affect any one group of individuals. Performed By: #### L [id number] ####[facility] ([facility])[address] [place] [place] [address] Glucose [Mass/Vol] 110 mg/dL High 70-100 [facility] Comment on above: Performed By: #### L [id number] ####[facility] ([facility])[address] [place] [place] [address] Potassium [Moles/Vol] 3.4 mmol/L Low 3.5-5.1 [facility] Comment on above: Performed By: #### L [id number] ####[facility] ([facility])[address] [place] [address] Sodium [Moles/Vol] 137 mmol/L Normal 136-145 [facility] Comment on above: Performed By: #### L [id number] ####[facility] ([facility])[address] [place] [place] [address] Urea nitrogen [Mass/Vol] 15 mg/dL Normal 7-25 [facility] Comment on above: Performed By: #### L [id number] ####[facility] ([facility])[address] [place] [place] [address] UREA NITROGEN/CREATININE (MASS RATIO) IN SER/PLAS 22.1 Normal [facility] Comment on above: Performed By: #### L [id number] ####[facility] ([facility])[address] [place] [place] [address] CBCon 12-17-2023 Erythrocyte distribution width (RBC) [Ratio] 13.0 % Normal 11.5-15.0 [facility] Comment on above: Performed By: #### L [id number] ####[facility] ([facility])[address] [place] [place] [address] ERYTHROCYTE MEAN CORPUSCULAR HEMOGLOBIN CONCENTRATION (G/DL) BY AUTOMATED 33.5 g/dL Normal 32.0-35.0 [facility] Comment on above: Performed By: #### L [id number] ####[facility] ([facility])[address] [place] [address] Hematocrit (Bld) [Volume fraction] 23.0 % Low 36.0-48.0 [facility] Comment on above: Performed By: #### L [id number] ####[facility] ([facility])[address] [place] [address] Hemoglobin (Bld) [Mass/Vol] 7.7 g/dL Low 12.0-15.0 [facility] Comment on above: Performed By: #### L [id number] ####[facility] ([facility])[address] [place] [place] [address] MCH (RBC) [Entitic mass] 31.3 pg Normal 27.0-33.0 [facility] Comment on above: Performed By: #### L [id number] ####[facility] [place] [address] MCV (RBC) [Entitic vol] 93.5 fL Normal 82.0-98.0 [facility] Comment on above: Performed By: #### L [id number] ####[facility] ([facility])[address] [place] [address] PLATELETS (10*3/UL) IN BLOOD AUTOMATED COUNT 135 10*3/uL Low 150-400 [facility] Comment on above: Performed By: #### L [id number] ####[facility] ([facility])[address] [place] [place] [address] RBC (Bld) [#/Vol] 2.46 10*6/uL Low 3.80-5.00 [facility] Comment on above: Performed By: #### L [id number] ####[facility] ([facility])[address] [place] [place] [address] WBC (Bld) [#/Vol] 9.45 10*3/uL Normal 4.00-10.60 [facility] Comment on above: Performed By: #### L [id number] ####[facility] ([facility])[address] [place] [address] IRON AND TIBCon 12-17-2023 IRON (UG/DL) IN SER/PLAS 28 ug/dL Low 50-212 [facility] Comment on above: Performed By: #### L [id number] ####[facility] ([facility])[address] [place] [place] [address] IRON BINDING CAPACITY (UG/DL) IN SER/PLAS 190 ug/dL Low 250-450 [facility] Comment on above: Performed By: #### L [id number] ####[facility] ([facility])[address] [place] [place] [address] IRON BINDING CAPACITY.UNSATURATED (UG/DL) IN SER/PLAS 162.0 ug/dL Normal 155.0-355.0 [facility] Comment on above: Performed By: #### L [id number] ####[facility] ([facility])[address] [place] [address] IRON SATURATION (%) IN SER/PLAS 15 % Low 20-50 [facility] Comment on above: Performed By: #### L [id number] ####[facility] ([facility])[address] [place] [address] MAGNESIUMon 12-17-2023 Magnesium [Mass/Vol] 2.0 mg/dL Normal 1.9-2.7 [facility] Comment on above: Performed By: #### L [id number] ####[facility] ([facility])[address] [place] [address] Orders Onlyon 12-17-2023 Orders Only Normal [facility] POCT GLUCOSE METER UNSOLICIT ED RESULTSon 12-17-2023 Glucose [Mass/Vol] 178 mg/dL High 70-105 [facility] Comment on above: Order Comment: Waive d Testing in the ED is performed under the ED CLIA certificate #[id number]. Result Comment: [email or web address] Performed By: #### L [id number] ####[facility] ([facility])[address] [place] [place] [address] Glucose [Mass/Vol] 181 mg/dL High 70-105 [facility] Comment on above: Order Comment: Waive d Testing in the ED is performed under the ED CLIA certificate #[id number]. Result Comment: [email or web address] [email or web address] Performed By: #### L [id number] ####[facility] ([facility])[address] [facility] [address] Glucose [Mass/Vol] 221 mg/dL High 70-105 [facility] Comment on above: Order Comment: Waive d Testing in the ED is performed under the ED CLIA certificate #[id number]. Result Comment: clum an Performed By: #### L [id number] ####[facility] ([facility])[address] [place] [address] Glucose [Mass/Vol] 166 mg/dL High 70-105 [facility] Comment on above: Order Comment: Waive d Testing in the ED is performed under the ED CLIA certificate #[id number]. Result Comment: clum an Performed By: #### L [id number] ####[facility] ([facility])[address] [place] [address] Glucose [Mass/Vol] 152 mg/dL High 70-105 [facility] Comment on above: Order Comment: Waive d Testing in the ED is performed under the ED CLIA certificate #[id number]. Result Comment: clum an Performed By: #### L [id number] ####[facility] ([facility])[address] [place] [address] Glucose [Mass/Vol] 154 mg/dL High 70-105 [facility] Comment on above: Order Comment: Waive d Testing in the ED is performed under the ED CLIA certificate #[id number]. Result Comment: cdav ies Performed By: #### L [id number] ####[facility] ([facility])[address] [place] [address] Glucose [Mass/Vol] 153 mg/dL High 70-105 [facility] Comment on above: Order Comment: Waive d Testing in the ED is performed under the ED CLIA certificate #[id number]. Result Comment: [email or web address] [email or web address] Performed By: #### L [id number] ####[facility] ([facility])[address] [place] [address] Glucose [Mass/Vol] 160 mg/dL High 70-105 [facility] Comment on above: Order Comment: Waive d Testing in the ED is performed under the ED CLIA certificate #[id number]. Result Comment: cdav ies Performed By: #### L [id number] ####[facility] ([facility])[address] [place] [address] Glucose [Mass/Vol] 147 mg/dL High 70-105 [facility] Comment on above: Order Comment: Waive d Testing in the ED is performed under the ED CLIA certificate #[id number]. Result Comment: cdav ies Performed By: #### L [id number] ####[facility] ([facility])[address] [place] [address] Glucose [Mass/Vol] 129 mg/dL High 70-105 [facility] Comment on above: Order Comment: Waive d Testing in the ED is performed under the ED CLIA certificate #[id number]. Result Comment: cdav ies Performed By: #### L [id number] ####[facility] ([facility])[address] [place] [address] Glucose [Mass/Vol] 136 mg/dL High 70-105 [facility] Comment on above: Order Comment: Waive d Testing in the ED is performed under the ED CLIA certificate #[id number]. Result Comment: cdav ies Performed By: #### L [id number] ####[facility] ([facility])[address] [place] [address] Glucose [Mass/Vol] 147 mg/dL High 70-105 [facility] Comment on above: Order Comment: Waive d Testing in the ED is performed under the ED CLIA certificate #[id number]. Result Comment: cdav ies Performed By: #### L [id number] ####[facility] ([facility])[address] [place] [address] Glucose [Mass/Vol] 161 mg/dL High 70-105 [facility] Comment on above: Order Comment: Waive d Testing in the ED is performed under the ED CLIA certificate #[id number]. Result Comment: cdav ies Performed By: #### L [id number] ####[facility] ([facility])[address] [place] [address] 30on 12-16-2023 30 Normal [facility] 30 Normal [facility] ANESon 12-16-2023 ANES [facility] ANTI-XA (HEPARIN LEVEL)on HEPARIN UNFRACTIONATED (U/ML) IN PPP BY CHROMOGENIC METHOD <0.10 Invalid Interpretation Code 0.3-0.7 [facility] Comment on above: Result Comment: Rosa roxaban and Apixaban will interfere with the anti Xa assay used to monitor UFH and LMWH. Performed By: #### L [id number] ####[facility] ([facility])[address] [facility] [place] [place] [address] APTTon 12-16-2023 ACTIVATED PARTIAL THROMBOPLASTIN TIME IN PPP BY COAGULATION ASSAY 27.7 Seconds Normal 25.0-35.0 [facility] Comment on above: Result Comment: Clin ical significance of the APTT is questionable in the presence of heparin. Performed By: #### L [id number] ####[facility] ([facility])[address] [place] [address] BASIC METABOLIC PANELon 11-23 Anion gap [Moles/Vol] 10 mmol/L Normal 7-20 [facility] Comment on above: Performed By: #### L [id number] ####[facility] ([facility])[address] [facility] [place] [address] Calcium [Mass/Vol] 8.5 mg/dL Low 8.6-10.3 [facility] Comment on above: Performed By: #### L [id number] ####[facility] ([facility])[address] [facility] [place] [address] Chloride [Moles/Vol] 108 mmol/L High 98-107 [facility] Comment on above: Performed By: #### L [id number] ####[facility] ([facility])[address] [facility] [place] [address] CO2 [Moles/Vol] 27 mmol/L Normal 21-31 [facility] Comment on above: Performed By: #### L [id number] ####[facility] ([facility])[address] [facility] [address] Creatinine [Mass/Vol] 0.80 mg/dL Normal 0.60-1.20 [facility] Comment on above: Performed By: #### L [id number] ####[facility] ([facility])[address] [place] [place] [address] GLOMERULAR FILTRATION RATE ML/MIN/1.73 SQ M.PREDICTED 83.3 mL/min/1.73m*2 Normal >60.0 [facility] Comment on above: Result Comment: The [facility]???s estimated glomerular filtration rate (eGFR) will no longer include consideration of race in its calculation. The National Kidney Foundation???s eGFR Task Force developed new recommendations for the estimation of the glomerular filtration rate in the [place] They recommend immediate implementation of the new equation refit without the race variable in all laboratories because the calculation does not include race. In addition to not including race in the calculation and reporting, it included diversity in its development, and has acceptable performance characteristics and potential consequences that do not disproportionately affect any one group of individuals. Performed By: #### L [id number] ####[facility] ([facility])[address] [place] [place] [address] Glucose [Mass/Vol] 159 mg/dL High 70-100 [facility] Comment on above: Performed By: #### L [id number] ####[facility] ([facility])[address] [place] [place] [address] Potassium [Moles/Vol] 4.3 mmol/L Normal 3.5-5.1 [facility] Comment on above: Performed By: #### L [id number] ####[facility] ([facility])[address] [place] [place] [address] Sodium [Moles/Vol] 141 mmol/L Normal 136-145 [facility] Comment on above: Performed By: #### L [id number] ####[facility] ([facility])[address] [place] [place] [address] Urea nitrogen [Mass/Vol] 15 mg/dL Normal 7-25 [facility] Comment on above: Performed By: #### L [id number] ####[facility] ([facility])[address] [facility] [place] [address] UREA NITROGEN/CREATININE (MASS RATIO) IN SER/PLAS 18.8 Normal [facility] Comment on above: Performed By: #### L [id number] ####[facility] ([facility])[address] [place] [address] CBCon 12-16-2023 Erythrocyte distribution width (RBC) [Ratio] 13.0 % Normal 11.5-15.0 [facility] Comment on above: Performed By: #### L [id number] ####[facility] ([facility])[address] [place] [address] ERYTHROCYTE MEAN CORPUSCULAR HEMOGLOBIN CONCENTRATION (G/DL) BY AUTOMATED 33.7 g/dL Normal 32.0-35.0 [facility] Comment on above: Performed By: #### L [id number] ####[facility] ([facility])[address] [place] [address] Hematocrit (Bld) [Volume fraction] 24.3 % Low 36.0-48.0 [facility] Comment on above: Performed By: #### L [id number] ####[facility] ([facility])[address] [place] [address] Hemoglobin (Bld) [Mass/Vol] 8.2 g/dL Low 12.0-15.0 [facility] Comment on above: Performed By: #### L [id number] ####[facility] ([facility])[address] [place] [address] MCH (RBC) [Entitic mass] 31.1 pg Normal 27.0-33.0 [facility] Comment on above: Performed By: #### L [id number] ####[facility] ([facility] [place] [address] MCV (RBC) [Entitic vol] 92.0 fL Normal 82.0-98.0 [facility] Comment on above: Performed By: #### L [id number] ####[facility] ([facility])[address] [place] [address] PLATELETS (10*3/UL) IN BLOOD AUTOMATED COUNT 130 10*3/uL Low 150-400 [facility] Comment on above: Performed By: #### L [id number] ####[facility] ([facility])[address] [place] [address] RBC (Bld) [#/Vol] 2.64 10*6/uL Low 3.80-5.00 [facility] Comment on above: Performed By: #### L [id number] ####[facility] ([facility])[address] [place] [address] WBC (Bld) [#/Vol] 6.53 10*3/uL Normal 4.00-10.60 [facility] Comment on above: Performed By: #### L [id number] ####[facility] ([facility])[address] [place] [address] CONSULTon 12-16-2023 CONSULT Normal [facility] MAGNESIUMon 12-16-2023 Magnesium [Mass/Vol] 2.2 mg/dL Normal 1.9-2.7 [facility] Comment on above: Performed By: #### L [id number] ####[facility] ([facility])[address] [place] [address] PHOSPHORUSon 12-16-2023 Magnesium [Mass/Vol] 3.6 mg/dL Normal 2.5-5.0 [facility] Comment on above: Performed By: #### L [id number] ####[facility] ([facility])[address] [place] [address] POCT GLUCOSE METER UNSOLICIT ED RESULTSon 12-16-2023 Glucose [Mass/Vol] 163 mg/dL High 70-105 [facility] Comment on above: Order Comment: Waive d Testing in the ED is performed under the ED CLIA certificate #[id number]. Result Comment: cdav ies Performed By: #### L [id number] ####[facility] ([facility])[address] [place] [address] Glucose [Mass/Vol] 138 mg/dL High 70-105 [facility] Comment on above: Order Comment: Waive d Testing in the ED is performed under the ED CLIA certificate #[id number]. Result Comment: cdav ies Performed By: #### L [id number] ####[facility] ([facility])[address] [place] [address] Glucose [Mass/Vol] 105 mg/dL Normal 70-105 [facility] Comment on above: Order Comment: Waive d Testing in the ED is performed under the ED CLIA certificate #[id number]. Result Comment: cdav ies Performed By: #### L [id number] ####[facility] ([facility])[address] [place] [address] Glucose [Mass/Vol] 77 mg/dL Normal 70-105 [facility] Comment on above: Order Comment: Waive d Testing in the ED is performed under the ED CLIA certificate #[id number]. Result Comment: cdav ies Performed By: #### L [id number] ####[facility] ([facility])[address] [place] [address] Glucose [Mass/Vol] 128 mg/dL High 70-105 [facility] Comment on above: Order Comment: Waive d Testing in the ED is performed under the ED CLIA certificate #[id number]. Result Comment: tlin [email or web address] Performed By: #### L [id number] ####[facility] ([facility])[address] [place] [address] Glucose [Mass/Vol] 155 mg/dL High 70-105 [facility] Comment on above: Order Comment: Waive d Testing in the ED is performed under the ED CLIA certificate #[id number]. Result Comment: tlin [email or web address] Performed By: #### L [id number] ####[facility] ([facility])[address] [place] [address] Glucose [Mass/Vol] 160 mg/dL High 70-105 [facility] Comment on above: Order Comment: Waive d Testing in the ED is performed under the ED CLIA certificate #[id number]. Result Comment: tlin [email or web address] Performed By: #### L [id number] ####[facility] ([facility])[address] [place] [address] Glucose [Mass/Vol] 126 mg/dL High 70-105 [facility] Comment on above: Order Comment: Waive d Testing in the ED is performed under the ED CLIA certificate #[id number]. Result Comment: [email or web address] [email or web address] Performed By: #### L [id number] ####[facility] ([facility])[address] [place] [address] Glucose [Mass/Vol] 125 mg/dL High 70-105 [facility] Comment on above: Order Comment: Waive d Testing in the ED is performed under the ED CLIA certificate #[id number]. Result Comment: tlin [email or web address] Performed By: #### L [id number] ####[facility] ([facility])[address] [place] [address] Glucose [Mass/Vol] 173 mg/dL High 70-105 [facility] Comment on above: Order Comment: Waive d Testing in the ED is performed under the ED CLIA certificate #[id number]. Result Comment: tlin [email or web address] Performed By: #### L [id number] ####[facility] ([facility])[address] [place] [address] Glucose [Mass/Vol] 160 mg/dL High 70-105 [facility] Comment on above: Order Comment: Waive d Testing in the ED is performed under the ED CLIA certificate #[id number]. Result Comment: tlin [email or web address] Performed By: #### L [id number] ####[facility] ([facility])[address] [place] [address] Glucose [Mass/Vol] 189 mg/dL High 70-105 [facility] Comment on above: Order Comment: Waive d Testing in the ED is performed under the ED CLIA certificate #[id number]. Result Comment: tlin [email or web address] Performed By: #### L [id number] ####[facility] ([facility])[address] [place] [address] Glucose [Mass/Vol] 172 mg/dL High 70-105 [facility] Comment on above: Order Comment: Waive d Testing in the ED is performed under the ED CLIA certificate #[id number]. Result Comment: tlin [email or web address] Performed By: #### L [id number] ####[facility] ([facility])[address] [place] [address] Glucose [Mass/Vol] 188 mg/dL High 70-105 [facility] Comment on above: Order Comment: Waive d Testing in the ED is performed under the ED CLIA certificate #[id number]. Result Comment: tlin [email or web address] Performed By: #### L [id number] ####[facility] ([facility])[address] [place] [address] Glucose [Mass/Vol] 192 mg/dL High 70-105 [facility] Comment on above: Order Comment: Waive d Testing in the ED is performed under the ED CLIA certificate #[id number]. Result Comment: [email or web address] [email or web address] Performed By: #### L [id number] ####[facility] ([facility])[address] [place] [address] Glucose [Mass/Vol] 233 mg/dL High 70-105 [facility] Comment on above: Order Comment: Waive d Testing in the ED is performed under the ED CLIA certificate #[id number]. Result Comment: cdav ies Performed By: #### L [id number] ####[facility] ([facility])[address] [place] [address] Glucose [Mass/Vol] 198 mg/dL High 70-105 [facility] Comment on above: Order Comment: Waive d Testing in the ED is performed under the ED CLIA certificate #[id number]. Result Comment: cdav ies Performed By: #### L [id number] ####[facility] ([facility])[address] [place] [address] Glucose [Mass/Vol] 193 mg/dL High 70-105 [facility] Comment on above: Order Comment: Waive d Testing in the ED is performed under the ED CLIA certificate #[id number]. Result Comment: cdav ies Performed By: #### L [id number] ####[facility] ([facility])[address] [place] [address] Glucose [Mass/Vol] 186 mg/dL High 70-105 [facility] Comment on above: Order Comment: Waive d Testing in the ED is performed under the ED CLIA certificate #[id number]. Result Comment: cdav ies Performed By: #### L [id number] ####[facility] ([facility])[address] [place] [address] Glucose [Mass/Vol] 208 mg/dL High 70-105 [facility] Comment on above: Order Comment: Waive d Testing in the ED is performed under the ED CLIA certificate #[id number]. Result Comment: cdav ies Performed By: #### L [id number] ####[facility] ([facility])[address] [place] [address] Glucose [Mass/Vol] 188 mg/dL High 70-105 [facility] Comment on above: Order Comment: Waive d Testing in the ED is performed under the ED CLIA certificate #[id number]. Result Comment: cdav ies Performed By: #### L [id number] ####[facility] ([facility])[address] [place] [address] Glucose [Mass/Vol] 177 mg/dL High 70-105 [facility] Comment on above: Order Comment: Waive d Testing in the ED is performed under the ED CLIA certificate #[id number]. Result Comment: cdav ies Performed By: #### L [id number] ####[facility] ([facility])[address] [place] [address] PROTIME-INRon 12-16-2023 INR IN PPP BY COAGULATION ASSAY 1.19 High 0.90-1.10 [facility] Comment on above: Result Comment: ACCC P RECOMMENDED INR FOR WARFARIN THERAPY CONDITION INRPROPHYLAXIS OF VENOUS THROMBOSIS 2-3(HIGH-RISK SURGERY)TREATMENT OF VENOUS THROMBOSIS 2-3TREATMENT OF PULMONARY EMBOLISM 2-3PREVENTION OF SYSTEMIC EMBOLISM: 2-3 ACUTE MYOCARDIAL INFARCTION TISSUE HEART VALVES VALVULAR HEART DISEASE ATRIAL FIBRILLATION RECURRENT SYSTEMIC EMBOLISMMECHANICAL HEART VALVE 2.5-3.5 FROM: ORAL ANTICOAGULANTS. MECHANISM OF ACTION, CLINICAL EFFECTIVENESS, AND OPTIMAL THERAPEUTIC RANGE. CHEST 1995;108:231S-246S. Performed By: #### L [id number] ####[facility] ([facility])[address] [place] [address] PROTHROMBIN TIME (PT) IN PPP BY COAGULATION ASSAY 15.0 Seconds High 12.3-14.8 [facility] Comment on above: Performed By: #### L [id number] ####[facility] ([facility])[address] [place] [address] 30on 12-15-2023 30 Normal [facility] APTTon 12-15-2023 ACTIVATED PARTIAL THROMBOPLASTIN TIME IN PPP BY COAGULATION ASSAY 25.0 Seconds Normal 25.0-35.0 [facility] Comment on above: Result Comment: Clin ical significance of the APTT is questionable in the presence of heparin. Performed By: #### L [id number] ####[facility] ([facility])[address] [place] [address] ARTERIAL BLOOD GAS WITH IONI ZED CALCIUMon 12-15-2023 Base excess Calc (Bld) [Moles/Vol] -2.2000 mmol/L Low -2.0-3.0 [facility] Comment on above: Performed By: #### L [id number] ####[facility] [id number] [place] [address] [place] CALCIUM IONIZED (MMOL/L) IN BLOOD 1.22 mmol/L Normal 1.15-1.33 [facility] Comment on above: Performed By: #### L [id number] ####[facility] [id number] [place] [address] [facility] CO2 (Bld) [Partial pressure] 37 mm[Hg] Normal 35-48 [facility] Comment on above: Performed By: #### L [id number] ####[facility] [id number] [place] [address] [facility] HCO3 (Bld) [Moles/Vol] 22.4 mmol/L Normal 21.0-28.0 [facility] Comment on above: Performed By: #### L [id number] ####[facility] [id number] [place] [address] [facility] LPM 3 Normal [facility] Comment on above: Performed By: #### L [id number] ####[facility] [id number] [place] [address] [place] Oxygen (Bld) [Partial pressure] 106 mm[Hg] High 83-100 [facility] Comment on above: Performed By: #### L [id number] ####[facility] [id number] [place] [address] [place] OXYGEN SATURATION (%) IN ARTERIAL BLOOD 99.0 % High 94.0-98.0 [facility] Comment on above: Performed By: #### L [id number] ####[facility] [id number] [place] [address] [place] pH (Bld) 7.39 [pH] Normal 7.35-7.45 [facility] Comment on above: Performed By: #### L [id number] ####[facility] [id number] [place] [address] [facility] SOURCE OF OXYGEN Nasal cannula Normal [facility] Comment on above: Performed By: #### L [id number] ####[facility] [id number] [place] [address] [facility] Anesthesiaon 12-15-2023 Anesthesia Normal [facility] BASIC METABOLIC PANELon 11-23 Anion gap [Moles/Vol] 10 mmol/L Normal 7-20 [facility] Comment on above: Performed By: #### L [id number] ####[facility] ([facility])[address] [place] [place] [address] Calcium [Mass/Vol] 9.0 mg/dL Normal 8.6-10.3 [facility] Comment on above: Performed By: #### L [id number] ####[facility] ([facility])[address] [place] [place] [address] Chloride [Moles/Vol] 101 mmol/L Normal 98-107 [facility] Comment on above: Performed By: #### L [id number] ####[facility] ([facility])[address] [place] [place] [address] CO2 [Moles/Vol] 27 mmol/L Normal 21-31 [facility] Comment on above: Performed By: #### L [id number] ####[facility] ([facility])[address] [place] [address] Creatinine [Mass/Vol] 0.85 mg/dL Normal 0.60-1.20 [facility] Comment on above: Performed By: #### L [id number] ####[facility] ([facility])[address] [place] [address] GLOMERULAR FILTRATION RATE ML/MIN/1.73 SQ M.PREDICTED 77.4 mL/min/1.73m*2 Normal >60.0 [facility] Comment on above: Result Comment: [facility]???s estimated glomerular filtration rate (eGFR) will no longer include consideration of race in its calculation. The National Kidney Foundation???s eGFR Task Force developed new recommendations for the estimation of the glomerular filtration rate in the [place] They recommend immediate implementation of the new equation refit without the race variable in all laboratories because the calculation does not include race. In addition to not including race in the calculation and reporting, it included diversity in its development, and has acceptable performance characteristics and potential consequences that do not disproportionately affect any one group of individuals. Performed By: #### L [id number] ####[facility] ([facility])[address] [place] [address] Glucose [Mass/Vol] 118 mg/dL High 70-100 [facility] Comment on above: Performed By: #### L [id number] ####[facility] ([facility])[address] [place] [address] Potassium [Moles/Vol] 4.3 mmol/L Normal 3.5-5.1 [facility] Comment on above: Performed By: #### L [id number] ####[facility] ([facility])[address] [place] [address] Sodium [Moles/Vol] 134 mmol/L Low 136-145 [facility] Comment on above: Performed By: #### L [id number] ####[facility] ([facility])[address] [place] [address] Urea nitrogen [Mass/Vol] 17 mg/dL Normal 7-25 [facility] Comment on above: Performed By: #### L [id number] ####[facility] ([facility])[address] [place] [address] UREA NITROGEN/CREATININE (MASS RATIO) IN SER/PLAS 20.0 Normal [facility] Comment on above: Performed By: #### L [id number] ####[facility] ([facility])[address] [place] [address] CBCon 12-15-2023 Erythrocyte distribution width (RBC) [Ratio] 12.5 % Normal 11.5-15.0 [facility] Comment on above: Performed By: #### L [id number] ####[facility] ([facility])[address] [place] [address] ERYTHROCYTE MEAN CORPUSCULAR HEMOGLOBIN CONCENTRATION (G/DL) BY AUTOMATED 34.4 g/dL Normal 32.0-35.0 [facility] Comment on above: Performed By: #### L [id number] ####[facility] ([facility])[address] [place] [place] [address] Hematocrit (Bld) [Volume fraction] 41.8 % Normal 36.0-48.0 [facility] Comment on above: Performed By: #### L [id number] ####[facility] ([facility])[address] [place] [place] [address] Hemoglobin (Bld) [Mass/Vol] 14.4 g/dL Normal 12.0-15.0 [facility] Comment on above: Performed By: #### L [id number] ####[facility] ([facility])[address] [place] [address] MCH (RBC) [Entitic mass] 31.2 pg Normal 27.0-33.0 [facility] Comment on above: Performed By: #### L [id number] ####[facility] ([facility])[address] [place] [place] [address] MCV (RBC) [Entitic vol] 90.5 fL Normal 82.0-98.0 [facility] Comment on above: Performed By: #### L [id number] ####[facility] ([facility])[address] [place] [place] [address] PLATELETS (10*3/UL) IN BLOOD AUTOMATED COUNT 207 10*3/uL Normal 150-400 [facility] Comment on above: Performed By: #### L [id number] ####[facility] ([facility])[address] [place] [place] [address] RBC (Bld) [#/Vol] 4.62 10*6/uL Normal 3.80-5.00 [facility] Comment on above: Performed By: #### L [id number] ####[facility] ([facility])[address] [place] [address] WBC (Bld) [#/Vol] 6.04 10*3/uL Normal 4.00-10.60 [facility] Comment on above: Performed By: #### L [id number] ####[facility] ([facility])[address] [place] [place] [address] CBC WITH AUTO DIFFERENTIALon 12-15-2023 Basophils (Bld) [#/Vol] 0.05 10*3/uL Normal 0.00-0.20 [facility] Comment on above: Performed By: #### L [id number] ####[facility] ([facility])[address] [place] [place] [address] Basophils/100 WBC (Bld) 0.3 % Normal 0.0-1.0 [facility] Comment on above: Performed By: #### L [id number] ####[facility] ([facility])[address] [place] [place] [address] Eosinophils (Bld) [#/Vol] 0.01 10*3/uL Normal 0.00-0.50 [facility] Comment on above: Performed By: #### L [id number] ####[facility] ([facility])[address] [place] [address] Eosinophils/100 WBC (Bld) 0.1 % Normal 0.0-6.0 [facility] Comment on above: Performed By: #### L [id number] ####[facility] ([facility])[address] [place] [address] Erythrocyte distribution width (RBC) [Ratio] 12.8 % Normal 11.5-15.0 [facility] Comment on above: Performed By: #### L [id number] ####[facility] ([facility])[address] [place] [address] ERYTHROCYTE MEAN CORPUSCULAR HEMOGLOBIN CONCENTRATION (G/DL) BY AUTOMATED 33.2 g/dL Normal 32.0-35.0 [facility] Comment on above: Performed By: #### L [id number] ####[facility] ([facility])[address] [place] [address] Hematocrit (Bld) [Volume fraction] 31.0 % Low 36.0-48.0 [facility] Comment on above: Performed By: #### L [id number] ####[facility] ([facility])[address] [place] [place] [address] Hemoglobin (Bld) [Mass/Vol] 10.3 g/dL Low 12.0-15.0 [facility] Comment on above: Performed By: #### L [id number] ####[facility] ([facility])[address] [place] [place] [address] Immature granulocytes (Bld) [#/Vol] 0.12 10*3/uL Normal 0.00-0.20 [facility] Comment on above: Performed By: #### L [id number] ####[facility] ([facility])[address] [place] [place] [address] Immature granulocytes/100 WBC (Bld) 0.8 % Normal 0.0-1.0 [facility] Comment on above: Performed By: #### L [id number] ####[facility] ([facility])[address] [place] [place] [address] Lymphocytes (Bld) [#/Vol] 1.58 10*3/uL Normal 1.20-4.00 [facility] Comment on above: Performed By: #### L [id number] ####[facility] ([facility])[address] [place] [place] [address] Lymphocytes/100 WBC (Bld) 10.4 % Low 20.0-45.0 [facility] Comment on above: Performed By: #### L [id number] ####[facility] ([facility])[address] [place] [place] [address] MCH (RBC) [Entitic mass] 31.2 pg Normal 27.0-33.0 [facility] Comment on above: Performed By: #### L [id number] ####[facility] ([facility])[address] [place] [address] MCV (RBC) [Entitic vol] 93.9 fL Normal 82.0-98.0 [facility] Comment on above: Performed By: #### L [id number] ####[facility] ([facility])[address] [place] [place] [address] Monocytes (Bld) [#/Vol] 1.19 10*3/uL High 0.10-1.00 [facility] Comment on above: Performed By: #### L [id number] ####[facility] ([facility])[address] [place] [place] [address] Monocytes/100 WBC (Bld) 7.8 % Normal 5.0-12.0 [facility] Comment on above: Performed By: #### L [id number] ####[facility] ([facility])[address] [place] [place] [address] Neutrophils (Bld) [#/Vol] 12.28 10*3/uL High 1.60-7.60 [facility] Comment on above: Performed By: #### L [id number] ####[facility] ([facility])[address] [place] [place] [address] Neutrophils/100 WBC (Bld) 80.6 % High 40.0-72.0 [facility] Comment on above: Performed By: #### L [id number] ####[facility] ([facility])[address] [place] [address] NRBC (PER 100 WBCS) BY AUTOMATED COUNT 0.0 % Normal 0 [facility] Comment on above: Performed By: #### L [id number] ####[facility] ([facility])[address] [place] [place] [address] PLATELETS (10*3/UL) IN BLOOD AUTOMATED COUNT 189 10*3/uL Normal 150-400 [facility] Comment on above: Performed By: #### L [id number] ####[facility] ([facility])[address] [place] [place] [address] RBC (Bld) [#/Vol] 3.30 10*6/uL Low 3.80-5.00 [facility] Comment on above: Performed By: #### L [id number] ####[facility] ([facility])[address] [place] [place] [address] WBC (Bld) [#/Vol] 15.23 10*3/uL High 4.00-10.60 [facility] Comment on above: Performed By: #### L [id number] ####[facility] ([facility])[address] [place] [address] CO-OXIMETRYon 12-15-2023 CARBOXYHEMOGLOBIN/HEMO GLOBIN TOTAL % IN BLOOD 1.7 % Normal [facility] Comment on above: Performed By: #### L [id number] ####[facility] [id number] [place] [address] [facility] Hemoglobin (Bld) [Mass/Vol] 9.1 g/dL Normal [facility] Comment on above: Performed By: #### L [id number] ####[facility] [id number] [place] [address] [facility] METHEMOGLOBIN/100 IN BLOOD 0.3 % Normal 0.0-1.5 [facility] Comment on above: Performed By: #### L [id number] ####[facility] [id number] [place] [address] [place] Oxygen saturation in Blood 64.9 % Normal [facility] Comment on above: Performed By: #### L [id number] ####[facility] [id number] [place] [address] [place] OXYGENATED HEMOGLOBIN IN BLOOD 63.6 % Normal [facility] Comment on above: Performed By: #### L [id number] ####[facility] [id number] [place] [address] [facility] COMPREHENSIVE METABOLIC PANE Kirit 12-15-2023 Albumin [Mass/Vol] 3.5 g/dL Normal 3.5-5.7 [facility] Comment on above: Performed By: #### L [id number] ####[facility] ([facility] [place] [address] ALP [Catalytic activity/Vol] 47 U/L Normal 34-104 [facility] Comment on above: Performed By: #### L [id number] ####[facility] ([facility])[address] [place] [address] ALT [Catalytic activity/Vol] 21 U/L Normal 7-52 [facility] Comment on above: Performed By: #### L [id number] ####[facility] ([facility] [place] [place] [address] Anion gap [Moles/Vol] 13 mmol/L Normal 7-20 [facility] Comment on above: Performed By: #### L [id number] ####[facility] ([facility])[address] [place] [place], [place] [address] AST [Catalytic activity/Vol] 37 U/L Normal 13-39 [facility] Comment on above: Performed By: #### L [id number] ####[facility] ([facility])[address] [place] [place] [address] Bilirubin [Mass/Vol] 0.6 mg/dL Normal 0.3-1.0 [facility] Comment on above: Performed By: #### L [id number] ####[facility] ([facility])[address] [place] [place], [place] [address] Calcium [Mass/Vol] 9.1 mg/dL Normal 8.6-10.3 [facility] Comment on above: Performed By: #### L [id number] ####[facility] ([facility] [place] [place] [address] Chloride [Moles/Vol] 109 mmol/L High 98-107 [facility] Comment on above: Performed By: #### L [id number] ####[facility] ([facility])[address] [place] [place] [address] CO2 [Moles/Vol] 21 mmol/L Normal 21-31 [facility] Comment on above: Performed By: #### L [id number] ####[facility] ([facility])[address] [place] [address] Creatinine [Mass/Vol] 0.84 mg/dL Normal 0.60-1.20 [facility] Comment on above: Performed By: #### L [id number] ####[facility] ([facility])[address] [place] [place] [address] GLOMERULAR FILTRATION RATE ML/MIN/1.73 SQ M.PREDICTED 78.5 mL/min/1.73m*2 Normal >60.0 [facility] Comment on above: Result Comment: [facility]???s estimated glomerular filtration rate (eGFR) will no longer include consideration of race in its calculation. The [employer] Foundation???s eGFR Task Force developed new recommendations for the estimation of the glomerular filtration rate in the [place] They recommend immediate implementation of the new equation refit without the race variable in all laboratories because the calculation does not include race. In addition to not including race in the calculation and reporting, it included diversity in its development, and has acceptable performance characteristics and potential consequences that do not disproportionately affect any one group of individuals. Performed By: #### L [id number] ####[facility] ([facility])[address] [place] [address] Glucose [Mass/Vol] 205 mg/dL High 70-100 [facility] Comment on above: Performed By: #### L [id number] ####[facility] ([facility])[address] [place] [address] Potassium [Moles/Vol] 4.0 mmol/L Normal 3.5-5.1 [facility] Comment on above: Performed By: #### L [id number] ####[facility] ([facility])[address] [place] [address] Protein [Mass/Vol] 5.2 g/dL Low 6.0-8.3 [facility] Comment on above: Performed By: #### L [id number] ####[facility] ([facility])[address] [place] [address] Sodium [Moles/Vol] 139 mmol/L Normal 136-145 [facility] Comment on above: Performed By: #### L [id number] ####[facility] ([facility])[address] [place] [address] Urea nitrogen [Mass/Vol] 15 mg/dL Normal 7-25 [facility] Comment on above: Performed By: #### L [id number] ####[facility] ([facility])[address] [place] [address] UREA NITROGEN/CREATININE (MASS RATIO) IN SER/PLAS 17.9 Normal [facility] Comment on above: Performed By: #### L [id number] ####[facility] ([facility])[address] [place] [address] FIBRINOGENon 12-15-2023 Magnesium [Mass/Vol] 292 mg/dL Normal 150-425 [facility] Comment on above: Performed By: #### L [id number] ####[facility] ([facility])[address] [place] [address] HPon 12-15-2023 HP H&P reviewed. The edward garcia was examined and there are no changes to the H&P. Normal [facility] LACTIC ACID, PLASMAon 2023 LACTATE (MMOL/L) IN SER/PLAS 2.1 mmol/L Normal 0.5-2.2 [facility] Comment on above: Performed By: #### L [id number] ####[facility] ([facility])[address] [place] [address] MAGNESIUMon 12-15-2023 Magnesium [Mass/Vol] 2.4 mg/dL Normal 1.9-2.7 [facility] Comment on above: Performed By: #### L [id number] ####[facility] ([facility])[address] [place] [address] NURSNOTEon 12-15-2023 NURSNOTE Normal [facility] NURSNOTE Normal [facility] OPNOTEon 12-15-2023 OPNOTE Normal [facility] PHOSPHORUSon 12-15-2023 Magnesium [Mass/Vol] 5.4 mg/dL High 2.5-5.0 [facility] Comment on above: Performed By: #### L [id number] ####[facility] ([facility])[address] [place] [address] POCT ACTIVATED CLOTTING TIME UNSOLICITED RESULTSon 12-15-2023 POC ACTIVATED CLOTTING TIME 123 sec Normal 82-152 [facility] Comment on above: Performed By: #### L [id number] ####[facility] ([facility])[address] [place] [address] POC ACTIVATED CLOTTING TIME 475 sec High 82-152 [facility] Comment on above: Performed By: #### L [id number] ####[facility] ([facility])[address] [place] [address] POC ACTIVATED CLOTTING TIME 521 sec High 82-152 [facility] Comment on above: Performed By: #### L [id number] ####[facility] ([facility])[address] [place] [address] POC ACTIVATED CLOTTING TIME 462 sec High 82-152 [facility] Comment on above: Performed By: #### L [id number] ####[facility] ([facility])[address] [place] [address] POC ACTIVATED CLOTTING TIME 469 sec High 82-152 [facility] Comment on above: Performed By: #### L [id number] ####[facility] ([facility])[address] [place] [address] POC ACTIVATED CLOTTING TIME 584 sec High 82-152 [facility] Comment on above: Performed By: #### L [id number] ####[facility] ([facility])[address] [place] [address] POC ACTIVATED CLOTTING TIME 116 sec Normal 82-152 [facility] Comment on above: Performed By: #### L [id number] ####[facility] ([facility])[address] [place] [address] POCT GLUCOSE METER UNSOLICIT ED RESULTSon 12-15-2023 Glucose [Mass/Vol] 171 mg/dL High 70-105 [facility] Comment on above: Order Comment: Waive d Testing in the ED is performed under the ED CLIA certificate #[id number]. Result Comment: cdav ies Performed By: #### L [id number] ####[facility] ([facility])[address] [place] [address] Glucose [Mass/Vol] 184 mg/dL High 70-105 [facility] Comment on above: Order Comment: Waive d Testing in the ED is performed under the ED CLIA certificate #[id number]. Result Comment: cdav ies Performed By: #### L [id number] ####[facility] ([facility])[address] [place] [address] Glucose [Mass/Vol] 166 mg/dL High 70-105 [facility] Comment on above: Order Comment: Waive d Testing in the ED is performed under the ED CLIA certificate #[id number]. Result Comment: cdav ies Performed By: #### L [id number] ####[facility] ([facility])[address] [place] [address] Glucose [Mass/Vol] 145 mg/dL High 70-105 [facility] Comment on above: Order Comment: Waive d Testing in the ED is performed under the ED CLIA certificate #[id number]. Result Comment: cdav ies Performed By: #### L [id number] ####[facility] ([facility])[address] [place] [address] Glucose [Mass/Vol] 216 mg/dL High 70-105 [facility] Comment on above: Order Comment: Waive d Testing in the ED is performed under the ED CLIA certificate #[id number]. Result Comment: jgig and Performed By: #### L [id number] ####[facility] ([facility])[address] [place] [address] Glucose [Mass/Vol] 224 mg/dL High 70-105 [facility] Comment on above: Order Comment: Waive d Testing in the ED is performed under the ED CLIA certificate #[id number]. Result Comment: jgig and Performed By: #### L [id number] ####[facility] ([facility])[address] [place] [address] POCT PERFUSION PANEL UNSOLIC ITED RESULTSon 12-15-2023 CO2 [Moles/Vol] 23.0 mmol/L Normal 21.0-29.0 [facility] Comment on above: Performed By: #### L [id number] ####[facility] ([facility])[address] [place] [address] Glucose [Mass/Vol] 205 mg/dL High 70-105 [facility] Comment on above: Performed By: #### L [id number] ####[facility] ([facility])[address] [place] [address] HCO3 (Bld) [Moles/Vol] 22.1 mmol/L Low 23.0-28.0 [facility] Comment on above: Performed By: #### L [id number] ####[facility] ([facility] [place] [place] [address] Hematocrit (Bld) [Volume fraction] 27 % Low 38-51 [facility] Comment on above: Performed By: #### L [id number] ####[facility] ([facility])[address] [place] [place] [address] Hemoglobin (Bld) [Mass/Vol] 9.2 g/dL Low 12.0-17.0 [facility] Comment on above: Performed By: #### L [id number] ####[facility] ([facility])[address] [place], [place] [address] POCT BASE EXCESS -4.0 mmol/L Low -2.0-3.0 [facility] Comment on above: Performed By: #### L [id number] ####[facility] ([facility])[address] [place] [address] POCT IONIZED CALCIUM 1.18 mmol/L Normal 1.12-1.32 [facility] Comment on above: Performed By: #### L [id number] ####[facility] ([facility])[address] [place] [place] [address] POCT PCO2 42.2 mmHg Normal 41.0-51.0 [facility] Comment on above: Performed By: #### L [id number] ####[facility] ([facility])[address] [place] [place] [address] POCT PH 7.33 Normal 7.31-7.41 [facility] Comment on above: Performed By: #### L [id number] ####[facility] ([facility])[address] [place] [place] [address] POCT PO2 306 mmHg High 80-105 [facility] Comment on above: Performed By: #### L [id number] ####[facility] ([facility] [place] [place] [address] POCT SO2 100 % High 95-98 [facility] Comment on above: Performed By: #### L [id number] ####[facility] ([facility])[address] [place] [place] [address] Potassium [Moles/Vol] 4.3 mmol/L Normal 3.5-4.9 [facility] Comment on above: Performed By: #### L [id number] ####[facility] ([facility] [place] [place] [address] Sodium [Moles/Vol] 137 mmol/L Low 138.0-146.0 [facility] Comment on above: Performed By: #### L [id number] ####[facility] ([facility])[address] [place] [place] [address] CO2 [Moles/Vol] 24.0 mmol/L Normal 21.0-29.0 [facility] Comment on above: Performed By: #### L [id number] ####[facility] ([facility])[address] [place] [place] [address] Glucose [Mass/Vol] 196 mg/dL High 70-105 [facility] Comment on above: Performed By: #### L [id number] ####[facility] (BEAKER)[address] [place] [address] HCO3 (Bld) [Moles/Vol] 23.0 mmol/L Normal 23.0-28.0 [facility] Comment on above: Performed By: #### L [id number] ####[facility] (BEAKER)[address] [place] [address] Hematocrit (Bld) [Volume fraction] 25 % Low 38-51 [facility] Comment on above: Performed By: #### L [id number] ####[facility] (BEAKER)[address] [place] [address] Hemoglobin (Bld) [Mass/Vol] 8.5 g/dL Low 12.0-17.0 [facility] Comment on above: Performed By: #### L [id number] ####[facility] (BEAKER)[address] [place] [address] POCT BASE EXCESS -2.0 mmol/L Normal -2.0-3.0 [facility] Comment on above: Performed By: #### L [id number] ####REHABILITATION [facility] ([facility])[address] [address] POCT IONIZED CALCIUM 0.99 mmol/L Low 1.12-1.32 [facility] Comment on above: Performed By: #### L [id number] ####[facility] ([facility])[address] [address] POCT PCO2 40.9 mmHg Low 41.0-51.0 [facility] Comment on above: Performed By: #### L [id number] ####[facility] ([facility])[address] [address] POCT PH 7.36 Normal 7.31-7.41 [facility] Comment on above: Performed By: #### L [id number] ####[facility] ([facility])[address] [address] POCT PO2 480 mmHg High 80-105 [facility] Comment on above: Performed By: #### L [id number] ####[facility] ([facility])[address] [place] [address] POCT SO2 100 % High 95-98 [facility] Comment on above: Performed By: #### L [id number] ####[facility] ([facility])[address] [place] [address] Potassium [Moles/Vol] 4.8 mmol/L Normal 3.5-4.9 [facility] Comment on above: Performed By: #### L [id number] ####[facility] ([facility])[address] [place], [place] [address] Sodium [Moles/Vol] 136 mmol/L Low 138.0-146.0 [facility] Comment on above: Performed By: #### L [id number] ####[facility] (BEAKER)[address] [place], [place] [address] CO2 [Moles/Vol] 24.0 mmol/L Normal 21.0-29.0 [facility] Comment on above: Performed By: #### L [id number] ####[facility] ([facility]ER)[address] [place] [address] Glucose [Mass/Vol] 197 mg/dL High 70-105 [facility] Comment on above: Performed By: #### L [id number] ####[facility] ([facility])[address] [place] [address] HCO3 (Bld) [Moles/Vol] 22.7 mmol/L Low 23.0-28.0 [facility] Comment on above: Performed By: #### L [id number] ####[facility] ([facility])[address] [place] [address] Hematocrit (Bld) [Volume fraction] 29 % Low 38-51 [facility] Comment on above: Performed By: #### L [id number] ####[facility] ([facility]ER)[address] [place] [address] Hemoglobin (Bld) [Mass/Vol] 9.9 g/dL Low 12.0-17.0 [facility] Comment on above: Performed By: #### L [id number] ####[facility] ([facility])[address] [place] [address] POCT BASE EXCESS -2.0 mmol/L Normal -2.0-3.0 [facility] Comment on above: Performed By: #### L [id number] ####[facility] ([facility])[address] [address] POCT IONIZED CALCIUM 1.01 mmol/L Low 1.12-1.32 [facility] Comment on above: Performed By: #### L [id number] ####[facility] [address] POCT PCO2 39.4 mmHg Low 41.0-51.0 [facility] Comment on above: Performed By: #### L [id number] ####[facility] [address] POCT PH 7.37 Normal 7.31-7.41 [facility] Comment on above: Performed By: #### L [id number] ####[facility] [address] POCT PO2 508 mmHg High 80-105 [facility] Comment on above: Performed By: #### L [id number] ####[facility] ([facility])[address] [address] POCT SO2 100 % High 95-98 [facility] Comment on above: Performed By: #### L [id number] ####[facility] ([facility])[address] [address] Potassium [Moles/Vol] 4.6 mmol/L Normal 3.5-4.9 [facility] Comment on above: Performed By: #### L [id number] ####[facility] [address] Sodium [Moles/Vol] 135 mmol/L Low 138.0-146.0 [facility] Comment on above: Performed By: #### L [id number] ####[facility] [place] [address] CO2 [Moles/Vol] 25.0 mmol/L Normal 21.0-29.0 [facility] Comment on above: Performed By: #### L [id number] ####[facility] ([facility])[address] [place] [address] Glucose [Mass/Vol] 186 mg/dL High 70-105 [facility] Comment on above: Performed By: #### L [id number] ####[facility] ([facility])[address] [place] [address] HCO3 (Bld) [Moles/Vol] 24.0 mmol/L Normal 23.0-28.0 [facility] Comment on above: Performed By: #### L [id number] ####[facility] (BEAK[facility])[address] [place] [address] Hematocrit (Bld) [Volume fraction] 26 % Low 38-51 [facility] Comment on above: Performed By: #### L [id number] ####[facility] (BEAKER)[address] [place] [address] Hemoglobin (Bld) [Mass/Vol] 8.8 g/dL Low 12.0-17.0 [facility] Comment on above: Performed By: #### L [id number] ####[facility] (BEAK[facility])[address] [place] [address] POCT BASE EXCESS -2.0 mmol/L Normal -2.0-3.0 [facility] Comment on above: Performed By: #### L [id number] ####[facility] ([facility])[address] [place] [place] [address] POCT IONIZED CALCIUM 1.00 mmol/L Low 1.12-1.32 [facility] Comment on above: Performed By: #### L [id number] ####[facility] ([facility])[address] [place] [address] POCT PCO2 43.4 mmHg Normal 41.0-51.0 [facility] Comment on above: Performed By: #### L [id number] ####[facility] ([facility])[address] [place] [address] POCT PH 7.35 Normal 7.31-7.41 [facility] Comment on above: Performed By: #### L [id number] ####[facility] ([facility])[address] [place] [address] POCT PO2 485 mmHg High 80-105 [facility] Comment on above: Performed By: #### L [id number] ####[facility] ([facility]AKER)[address] [place] [address] POCT SO2 100 % High 95-98 [facility] Comment on above: Performed By: #### L [id number] ####[facility] ([facility]ER)[address] [place] [address] Potassium [Moles/Vol] 4.5 mmol/L Normal 3.5-4.9 [facility] Comment on above: Performed By: #### L [id number] ####[facility] ([facility]AKER)[address] [place] [address] Sodium [Moles/Vol] 136 mmol/L Low 138.0-146.0 [facility] Comment on above: Performed By: #### L [id number] ####[facility] ([facility]AKER)[address] [place] [address] CO2 [Moles/Vol] 26.0 mmol/L Normal 21.0-29.0 [facility] Comment on above: Performed By: #### L [id number] ####[facility] ([facility]AKER)[address] [place] [address] Glucose [Mass/Vol] 188 mg/dL High 70-105 [facility] Comment on above: Performed By: #### L [id number] ####[facility] (BEAKER)[address] [place] [address] HCO3 (Bld) [Moles/Vol] 24.0 mmol/L Normal 23.0-28.0 [facility] Comment on above: Performed By: #### L [id number] ####[facility] [address] Hematocrit (Bld) [Volume fraction] 26 % Low 38-51 [facility] Comment on above: Performed By: #### L [id number] ####[facility] ([facility])[address] [address] Hemoglobin (Bld) [Mass/Vol] 8.8 g/dL Low 12.0-17.0 [facility] Comment on above: Performed By: #### L [id number] ####[facility] ([facility])[address] [address] POCT BASE EXCESS -3.0 mmol/L Low -2.0-3.0 [facility] Comment on above: Performed By: #### L [id number] ####[facility] ([facility])[address] [address] POCT IONIZED CALCIUM 0.96 mmol/L Low 1.12-1.32 [facility] Comment on above: Performed By: #### L [id number] ####[facility] ([facility])[address] [address] POCT PCO2 52.1 mmHg High 41.0-51.0 [facility] Comment on above: Performed By: #### L [id number] ####[facility] [address] POCT PH 7.27 Low 7.31-7.41 [facility] Comment on above: Performed By: #### L [id number] ####[facility] [address] POCT PO2 468 mmHg High 80-105 [facility] Comment on above: Performed By: #### L [id number] ####[facility] [address] POCT SO2 100 % High 95-98 [facility] Comment on above: Performed By: #### L [id number] ####[facility] ([facility]AKER)[address] [place] [place] [address] Potassium [Moles/Vol] 5.3 mmol/L High 3.5-4.9 [facility] Comment on above: Performed By: #### L [id number] ####[facility] ([facility]AKER)[address] [place] [address] Sodium [Moles/Vol] 135 mmol/L Low 138.0-146.0 [facility] Comment on above: Performed By: #### L [id number] ####[facility] (BEAKER)[address] [place] [place] [address] CO2 [Moles/Vol] 25.0 mmol/L Normal 21.0-29.0 [facility] Comment on above: Performed By: #### L [id number] ####[facility] (BEAKER)[address] [place] [address] Glucose [Mass/Vol] 167 mg/dL High 70-105 [facility] Comment on above: Performed By: #### L [id number] ####[facility] (BEAKER)[address] [place] [place] [address] HCO3 (Bld) [Moles/Vol] 23.3 mmol/L Normal 23.0-28.0 [facility] Comment on above: Performed By: #### L [id number] ####[facility] (BEAKER)[address] [place] [place] [address] Hematocrit (Bld) [Volume fraction] 40 % Normal 38-51 [facility] Comment on above: Performed By: #### L [id number] ####[facility] (BEAKER)[address] [place] [address] Hemoglobin (Bld) [Mass/Vol] 13.6 g/dL Normal 12.0-17.0 [facility] Comment on above: Performed By: #### L [id number] ####[facility] ([facility]ER)[address] [place] [address] POCT BASE EXCESS -3.0 mmol/L Low -2.0-3.0 [facility] Comment on above: Performed By: #### L [id number] ####[facility] [place] [place] [address] POCT IONIZED CALCIUM 1.15 mmol/L Normal 1.12-1.32 [facility] Comment on above: Performed By: #### L [id number] ####[facility] [place] [place] [address] POCT PCO2 47.5 mmHg Normal 41.0-51.0 [facility] Comment on above: Performed By: #### L [id number] ####[facility] ([facility])[address] [place] [place] [address] POCT PH 7.30 Low 7.31-7.41 [facility] Comment on above: Performed By: #### L [id number] ####[facility] ([facility])[address] [place] [place] [address] POCT PO2 173 mmHg High 80-105 [facility] Comment on above: Performed By: #### L [id number] ####[facility] [place] [place] [address] POCT SO2 99 % High 95-98 [facility] Comment on above: Performed By: #### L [id number] ####[facility] [place] [address] Potassium [Moles/Vol] 4.3 mmol/L Normal 3.5-4.9 [facility] Comment on above: Performed By: #### L [id number] ####[facility] ([facility]AKER)[address] [place] [address] Sodium [Moles/Vol] 136 mmol/L Low 138.0-146.0 [facility] Comment on above: Performed By: #### L [id number] ####[facility] ([facility]AKER)[address] [place] [address] CO2 [Moles/Vol] 23.0 mmol/L Normal 21.0-29.0 [facility] Comment on above: Performed By: #### L [id number] ####[facility] ([facility]ER)[address] [place] [address] Glucose [Mass/Vol] 120 mg/dL High 70-105 [facility] Comment on above: Performed By: #### L [id number] ####[facility] ([facility]ER)[address] [place] [place] [address] HCO3 (Bld) [Moles/Vol] 21.8 mmol/L Low 23.0-28.0 [facility] Comment on above: Performed By: #### L [id number] ####[facility] ([facility]AKER)[address] [place] [address] Hematocrit (Bld) [Volume fraction] 39 % Normal 38-51 [facility] Comment on above: Performed By: #### L [id number] ####[facility] ([facility]AKER)[address] [place] [address] Hemoglobin (Bld) [Mass/Vol] 13.3 g/dL Normal 12.0-17.0 [facility] Comment on above: Performed By: #### L [id number] ####[facility] ([facility])[address] [place], [place] [address] POCT BASE EXCESS -3.0 mmol/L Low -2.0-3.0 [facility] Comment on above: Performed By: #### L [id number] ####[facility] ([facility])[address] [place] [address] POCT IONIZED CALCIUM 1.13 mmol/L Normal 1.12-1.32 [facility] Comment on above: Performed By: #### L [id number] ####[facility] ([facility])[address] [place] [address] POCT PCO2 36.4 mmHg Low 41.0-51.0 [facility] Comment on above: Performed By: #### L [id number] ####[facility] [address] POCT PH 7.39 Normal 7.31-7.41 [facility] Comment on above: Performed By: #### L [id number] ####[facility] ([facility])[address] [address] POCT PO2 228 mmHg High 80-105 [facility] Comment on above: Performed By: #### L [id number] ####[facility] ([facility])[address] [address] POCT SO2 100 % High 95-98 [facility] Comment on above: Performed By: #### L [id number] ####[facility] ([facility] [place] [place] [address] Potassium [Moles/Vol] 4.0 mmol/L Normal 3.5-4.9 [facility] Comment on above: Performed By: #### L [id number] ####[facility] [address] Sodium [Moles/Vol] 138 mmol/L Normal 138.0-146.0 [facility] Comment on above: Performed By: #### L [id number] ####[facility] ([facility] [place] [place] [address] PROTIME-INRon 12-15-2023 INR IN PPP BY COAGULATION ASSAY 1.24 High 0.90-1.10 [facility] Comment on above: Result Comment: [facility] P RECOMMENDED INR FOR WARFARIN THERAPY CONDITION INRPROPHYLAXIS OF VENOUS THROMBOSIS 2-3(HIGH-RISK SURGERY)TREATMENT OF VENOUS THROMBOSIS 2-3TREATMENT OF PULMONARY EMBOLISM 2-3PREVENTION OF SYSTEMIC EMBOLISM: 2-3 ACUTE MYOCARDIAL INFARCTION TISSUE HEART VALVES VALVULAR HEART DISEASE ATRIAL FIBRILLATION RECURRENT SYSTEMIC EMBOLISMMECHANICAL HEART VALVE 2.5-3.5 FROM: ORAL ANTICOAGULANTS. MECHANISM OF ACTION, CLINICAL EFFECTIVENESS, AND OPTIMAL THERAPEUTIC RANGE. CHEST 1995;108:231S-246S. Performed By: #### L [id number] ####[facility] ([employer])[address] [place] [address] PROTHROMBIN TIME (PT) IN PPP BY COAGULATION ASSAY 15.5 Seconds High 12.3-14.8 [facility] Comment on above: Performed By: #### L [id number] ####[facility] ([employer])[address] [place] [address] TYPE AND SCREENon 12-15-2023 AB SCREEN Negative Normal [facility] Comment on above: Performed By: #### L [id number] ####[facility], ABO group Nom (Bld) A Normal [facility] Comment on above: Performed By: #### L [id number] ####[facility], RH TYPE IN BLOOD Positive Normal [facility] Comment on above: Performed By: #### L [id number] ####[facility], 30on 12-14-2023 30 The patient is Moder ately Stable - Low risk of patient condition declining or worsening The patient's goals for the shift include sleep prior to CABG The clinical goals for the shift include vss Normal [facility] 30 Normal [facility] ANESon 12-14-2023 ANES Normal [facility] ANTI-XA (HEPARIN LEVEL)on HEPARIN UNFRACTIONATED (U/ML) IN PPP BY CHROMOGENIC METHOD 0.55 IU/mL Normal 0.3-0.7 [facility] Comment on above: Result Comment: Rosa roxaban and Apixaban will interfere with the anti Xa assay used to monitor UFH and LMWH. Performed By: #### L [id number] ####[facility] ([facility])[address] [place] [address] BASIC METABOLIC PANELon 09-2 Anion gap [Moles/Vol] 12 mmol/L Normal 7-20 [facility] Comment on above: Performed By: #### L [id number] ####[facility] ([facility])[address] [place] [place] [address] Calcium [Mass/Vol] 8.9 mg/dL Normal 8.6-10.3 [facility] Comment on above: Performed By: #### L [id number] ####[facility] ([facility])[address] [place] [address] Chloride [Moles/Vol] 101 mmol/L Normal 98-107 [facility] Comment on above: Performed By: #### L [id number] ####[facility] ([facility] [place] [place] [address] CO2 [Moles/Vol] 26 mmol/L Normal 21-31 [facility] Comment on above: Performed By: #### L [id number] ####[facility] ([facility] [place] [place] [address] Creatinine [Mass/Vol] 0.83 mg/dL Normal 0.60-1.20 [facility] Comment on above: Performed By: #### L [id number] ####[facility] ([facility])[address] [place] [address] GLOMERULAR FILTRATION RATE ML/MIN/1.73 SQ M.PREDICTED 79.7 mL/min/1.73m*2 Normal >60.0 [facility] Comment on above: Result Comment: [facility]???s estimated glomerular filtration rate (eGFR) will no longer include consideration of race in its calculation. The National Kidney Foundation???s eGFR Task Force developed new recommendations for the estimation of the glomerular filtration rate in the [place] They recommend immediate implementation of the new equation refit without the race variable in all laboratories because the calculation does not include race. In addition to not including race in the calculation and reporting, it included diversity in its development, and has acceptable performance characteristics and potential consequences that do not disproportionately affect any one group of individuals. Performed By: #### L [id number] ####[facility] ([facility])[address] [place] [address] Glucose [Mass/Vol] 170 mg/dL High 70-100 [facility] Comment on above: Performed By: #### L [id number] ####[facility] ([facility])[address] [place] [address] Potassium [Moles/Vol] 4.6 mmol/L Normal 3.5-5.1 [facility] Comment on above: Performed By: #### L [id number] ####[facility] ([facility])[address] [place] [address] Sodium [Moles/Vol] 134 mmol/L Low 136-145 [facility] Comment on above: Performed By: #### L [id number] ####[facility] (BEAKER)[address] [place] [address] Urea nitrogen [Mass/Vol] 17 mg/dL Normal 7-25 [facility] Comment on above: Performed By: #### L [id number] ####[facility] ([facility]AKER)[address] [place] [address] UREA NITROGEN/CREATININE (MASS RATIO) IN SER/PLAS 20.5 [facility] Comment on above: Performed By: #### L [id number] ####[facility] ([facility])[address] [place] [address] 30on 12-13-2023 30 Normal [facility] 30 [facility] ANTI-XA (HEPARIN LEVEL)on HEPARIN UNFRACTIONATED (U/ML) IN PPP BY CHROMOGENIC METHOD 0.49 IU/mL Normal 0.3-0.7 [facility] Comment on above: Result Comment: Rosa roxaban and Apixaban will interfere with the anti Xa assay used to monitor UFH and LMWH. Performed By: #### L [id number] ####[facility] ([facility])[address] [place] [address] HEPARIN UNFRACTIONATED (U/ML) IN PPP BY CHROMOGENIC METHOD 0.60 IU/mL Normal 0.3-0.7 [facility] Comment on above: Result Comment: Rosa roxaban and Apixaban will interfere with the anti Xa assay used to monitor UFH and LMWH. Performed By: #### L [id number] ####[facility] ([facility])[address] [place] [address] HEPARIN UNFRACTIONATED (U/ML) IN PPP BY CHROMOGENIC METHOD 0.70 IU/mL Normal 0.3-0.7 [facility] Comment on above: Order Comment: Check anti-Xa level every 6 hours while on heparin infusion, or per protocol. Result Comment: Rosa roxaban and Apixaban will interfere with the anti Xa assay used to monitor UFH and LMWH. Performed By: #### L [id number] ####[facility] ([facility])[address] [place] [address] HEPARIN UNFRACTIONATED (U/ML) IN PPP BY CHROMOGENIC METHOD 0.90 IU/mL Critically high 0.3-0.7 [facility] Comment on above: Order Comment: Check anti-Xa level every 6 hours while on heparin infusion, or per protocol. Result Comment: Firth roxaban and Apixaban will interfere with the anti Xa assay used to monitor UFH and LMWH. Performed By: #### L [id number] ####[facility] ([facility])[address] [place] [address] BASIC METABOLIC PANELon -2 Anion gap [Moles/Vol] 10 mmol/L Normal 7-20 [facility] Comment on above: Performed By: #### L [id number] ####[facility] ([facility])[address] [place] [address] Calcium [Mass/Vol] 8.6 mg/dL Normal 8.6-10.3 [facility] Comment on above: Performed By: #### L [id number] ####[facility] ([facility]AKER)[address] [place] [address] Chloride [Moles/Vol] 101 mmol/L Normal 98-107 [facility] Comment on above: Performed By: #### L [id number] ####[facility] (BEAKER)[address] [place], [place] [address] CO2 [Moles/Vol] 27 mmol/L Normal 21-31 [facility] Comment on above: Performed By: #### L [id number] ####[facility] ([facility] [place] [address] Creatinine [Mass/Vol] 0.85 mg/dL Normal 0.60-1.20 [facility] Comment on above: Performed By: #### L [id number] ####[facility] ([facility])[address] [place] [address] GLOMERULAR FILTRATION RATE ML/MIN/1.73 SQ M.PREDICTED 77.4 mL/min/1.73m*2 Normal >60.0 [facility] Comment on above: Result Comment: [facility]???s estimated glomerular filtration rate (eGFR) will no longer include consideration of race in its calculation. The National Kidney Foundation???s eGFR Task Force developed new recommendations for the estimation of the glomerular filtration rate in the [place] They recommend immediate implementation of the new equation refit without the race variable in all laboratories because the calculation does not include race. In addition to not including race in the calculation and reporting, it included diversity in its development, and has acceptable performance characteristics and potential consequences that do not disproportionately affect any one group of individuals. Performed By: #### L [id number] ####[facility] ([facility] [place] [address] Glucose [Mass/Vol] 133 mg/dL High 70-100 [facility] Comment on above: Performed By: #### L [id number] ####[facility] ([facility] [place] [address] Potassium [Moles/Vol] 4.1 mmol/L Normal 3.5-5.1 [facility] Comment on above: Performed By: #### L [id number] ####[facility] (BEAKER)[address] [place] [place] [address] Sodium [Moles/Vol] 134 mmol/L Low 136-145 [facility] Comment on above: Performed By: #### L [id number] ####[facility] (BEAKER)[address] [place] [address] Urea nitrogen [Mass/Vol] 21 mg/dL Normal 7-25 [facility] Comment on above: Performed By: #### L [id number] ####[facility] ([facility] [place], [place] [address] UREA NITROGEN/CREATININE (MASS RATIO) IN SER/PLAS 24.7 Normal [facility] Comment on above: Performed By: #### L [id number] ####[facility] ([facility] [place] [address] CBCon 12-13-2023 Erythrocyte distribution width (RBC) [Ratio] 12.6 % Normal 11.5-15.0 [facility] Comment on above: Performed By: #### L [id number] ####[facility] ([facility] [place] [address] ERYTHROCYTE MEAN CORPUSCULAR HEMOGLOBIN CONCENTRATION (G/DL) BY AUTOMATED 33.8 g/dL Normal 32.0-35.0 [facility] Comment on above: Performed By: #### L [id number] ####[facility] (BEAKER)[address] [place], [place] [address] Hematocrit (Bld) [Volume fraction] 39.9 % Normal 36.0-48.0 [facility] Comment on above: Performed By: #### L [id number] ####[facility] (BEAKER)[address] [place], [place] [address] Hemoglobin (Bld) [Mass/Vol] 13.5 g/dL Normal 12.0-15.0 [facility] Comment on above: Performed By: #### L [id number] ####[facility] ([facility] [place] [place] [address] MCH (RBC) [Entitic mass] 31.5 pg Normal 27.0-33.0 [facility] Comment on above: Performed By: #### L [id number] ####[facility] ([facility] [place] [place] [address] MCV (RBC) [Entitic vol] 93.2 fL Normal 82.0-98.0 [facility] Comment on above: Performed By: #### L [id number] ####[facility] ([facility])[address] [place] [place] [address] PLATELETS (10*3/UL) IN BLOOD AUTOMATED COUNT 196 10*3/uL Normal 150-400 [facility] Comment on above: Performed By: #### L [id number] ####[facility] ([facility])[address] [place] [place] [address] RBC (Bld) [#/Vol] 4.28 10*6/uL Normal 3.80-5.00 [facility] Comment on above: Performed By: #### L [id number] ####[facility] ([facility])[address] [place] [place] [address] WBC (Bld) [#/Vol] 5.64 10*3/uL Normal 4.00-10.60 [facility] Comment on above: Performed By: #### L [id number] ####[facility] ([facility])[address] [place] [address] 30on 12-12-2023 30 Normal [facility] 30 Normal [facility] 30 Normal [facility] ANTI-XA (HEPARIN LEVEL)on HEPARIN UNFRACTIONATED (U/ML) IN PPP BY CHROMOGENIC METHOD 0.89 IU/mL High 0.3-0.7 [facility] Comment on above: Order Comment: Check anti-Xa level every 6 hours while on heparin infusion, or per protocol. Result Comment: Rosa roxaban and Apixaban will interfere with the anti Xa assay used to monitor UFH and LMWH. Performed By: #### L [id number] ####[facility] ([facility])[address] [place] [address] HEPARIN UNFRACTIONATED (U/ML) IN PPP BY CHROMOGENIC METHOD 0.97 IU/mL Critically high 0.3-0.7 [facility] Comment on above: Result Comment: Firth roxaban and Apixaban will interfere with the anti Xa assay used to monitor UFH and LMWH. Performed By: #### L [id number] ####[facility] (BEAKER)[address] [place] [address] HEPARIN UNFRACTIONATED (U/ML) IN PPP BY CHROMOGENIC METHOD <0.10 Invalid Interpretation Code 0.3-0.7 [facility] Comment on above: Order Comment: Check anti-Xa level every 6 hours while on heparin infusion, or per protocol. Result Comment: Firth roxaban and Apixaban will interfere with the anti Xa assay used to monitor UFH and LMWH. Performed By: #### L [id number] ####[facility] ([facility] [place] [address] HEPARIN UNFRACTIONATED (U/ML) IN PPP BY CHROMOGENIC METHOD <0.10 Invalid Interpretation Code 0.3-0.7 [facility] Comment on above: Order Comment: Check anti-Xa level every 6 hours while on heparin infusion, or per protocol. Result Comment: Rosa roxaban and Apixaban will interfere with the anti Xa assay used to monitor UFH and LMWH. Performed By: #### L [id number] ####[facility] ([facility])[address] [place] [address] Abstracton 12-12-2023 Abstract Normal [facility] Anesthesiaon 12-12-2023 Anesthesia Normal [facility] HPon 12-12-2023 HP H&P reviewed. The edward garcia was examined and there are no changes to the H&P. [facility] NURSNOTEon 12-12-2023 NURSNOTE Board Mixer Tender informed by Diamond ENGLE RN patients CABG was cancelled today. Patient will be returning to unit shortly. Normal [facility] NURSNOTE Patient was transpor [place] to OR for surgery before 7am. [facility] 30on 12-11-2023 30 [facility] 30 [facility] 30 [facility] APTTon 12-11-2023 ACTIVATED PARTIAL THROMBOPLASTIN TIME IN PPP BY COAGULATION ASSAY 88.0 Seconds High 25.0-35.0 [facility] Comment on above: Order Comment: Basel ine aPTT before initiating heparin infusion. Result Comment: Clin ical significance of the APTT is questionable in the presence of heparin. Performed By: #### L [id number] ####[facility] ([facility])[address] [place] [address] ACTIVATED PARTIAL THROMBOPLASTIN TIME IN PPP BY COAGULATION ASSAY 87.2 Seconds High 25.0-35.0 [facility] Comment on above: Result Comment: Clin ical significance of the APTT is questionable in the presence of heparin. Performed By: #### L [id number] ####[facility] ([facility]AKER)[address] [place] [address] BASIC METABOLIC PANELon 11-22 Anion gap [Moles/Vol] 17 mmol/L Normal 7-20 [facility] Comment on above: Performed By: #### L [id number] ####[facility] (BEAKER)[address] [place] [address] Calcium [Mass/Vol] 9.2 mg/dL Normal 8.6-10.3 [facility] Comment on above: Performed By: #### L [id number] ####[facility] ([facility]ER)[address] [place] [address] Chloride [Moles/Vol] 101 mmol/L Normal 98-107 [facility] Comment on above: Performed By: #### L [id number] ####[facility] ([facility]AKER)[address] [place] [address] CO2 [Moles/Vol] 19 mmol/L Low 21-31 [facility] Comment on above: Performed By: #### L [id number] ####[facility] ([facility])[address] [place] [place] [address] Creatinine [Mass/Vol] 0.96 mg/dL Normal 0.60-1.20 [facility] Comment on above: Performed By: #### L [id number] ####[facility] ([facility])[address] [place] [place] [address] GLOMERULAR FILTRATION RATE ML/MIN/1.73 SQ M.PREDICTED 66.9 mL/min/1.73m*2 Normal >60.0 [facility] Comment on above: Result Comment: [facility]???s estimated glomerular filtration rate (eGFR) will no longer include consideration of race in its calculation. The National Kidney Foundation???s eGFR Task Force developed new recommendations for the estimation of the glomerular filtration rate in the [place] They recommend immediate implementation of the new equation refit without the race variable in all laboratories because the calculation does not include race. In addition to not including race in the calculation and reporting, it included diversity in its development, and has acceptable performance characteristics and potential consequences that do not disproportionately affect any one group of individuals. Performed By: #### L [id number] ####[facility] ([facility])[address] [place] [place] [address] Glucose [Mass/Vol] 108 mg/dL High 70-100 [facility] Comment on above: Performed By: #### L [id number] ####[facility] ([facility])[address] [place] [place] [address] Potassium [Moles/Vol] 5.1 mmol/L Normal 3.5-5.1 [facility] Comment on above: Performed By: #### L [id number] ####[facility] ([facility])[address] [place] [place] [address] Sodium [Moles/Vol] 132 mmol/L Low 136-145 [facility] Comment on above: Performed By: #### L [id number] ####[facility] ([facility])[address] [place] [place] [address] Urea nitrogen [Mass/Vol] 19 mg/dL Normal 7-25 [facility] Comment on above: Performed By: #### L [id number] ####[facility] ([facility])[address] [place] [address] UREA NITROGEN/CREATININE (MASS RATIO) IN SER/PLAS 19.8 Normal [facility] Comment on above: Performed By: #### L [id number] ####[facility] ([facility])[address] [place] [address] CBCon 12-11-2023 Erythrocyte distribution width (RBC) [Ratio] 12.6 % Normal 11.5-15.0 [facility] Comment on above: Performed By: #### L [id number] ####[facility] ([facility])[address] [place] [address] ERYTHROCYTE MEAN CORPUSCULAR HEMOGLOBIN CONCENTRATION (G/DL) BY AUTOMATED 34.1 g/dL Normal 32.0-35.0 [facility] Comment on above: Performed By: #### L [id number] ####[facility] ([facility])[address] [place] [address] Hematocrit (Bld) [Volume fraction] 42.2 % Normal 36.0-48.0 [facility] Comment on above: Performed By: #### L [id number] ####[facility] ([facility])[address] [place] [address] Hemoglobin (Bld) [Mass/Vol] 14.4 g/dL Normal 12.0-15.0 [facility] Comment on above: Performed By: #### L [id number] ####[facility] ([facility] [place] [address] MCH (RBC) [Entitic mass] 30.8 pg Normal 27.0-33.0 [facility] Comment on above: Performed By: #### L [id number] ####[facility] ([facility] [place] [address] MCV (RBC) [Entitic vol] 90.2 fL Normal 82.0-98.0 [facility] Comment on above: Performed By: #### L [id number] ####[facility] (BEAKER)[address] [place] [address] PLATELETS (10*3/UL) IN BLOOD AUTOMATED COUNT 182 10*3/uL Normal 150-400 [facility] Comment on above: Performed By: #### L [id number] ####[facility] (BEAKER)[address] [place] [place] [address] RBC (Bld) [#/Vol] 4.68 10*6/uL Normal 3.80-5.00 [facility] Comment on above: Performed By: #### L [id number] ####[facility] ([facility] [place] [address] WBC (Bld) [#/Vol] 6.23 10*3/uL Normal 4.00-10.60 [facility] Comment on above: Performed By: #### L [id number] ####[facility] (BEAKER)[address] [place] [place] [address] CBC WITH AUTO DIFFERENTIALon 12-11-2023 Basophils (Bld) [#/Vol] 0.07 10*3/uL Normal 0.00-0.20 [facility] Comment on above: Performed By: #### L [id number] ####[facility] (BEAKER)[address] [place] [place] [address] Basophils/100 WBC (Bld) 1.1 % High 0.0-1.0 [facility] Comment on above: Performed By: #### L [id number] ####[facility] (BEAKER)[address] [place] [place] [address] Eosinophils (Bld) [#/Vol] 0.02 10*3/uL Normal 0.00-0.50 [facility] Comment on above: Performed By: #### L [id number] ####[facility] (BEAKER)[address] [place] [place] [address] Eosinophils/100 WBC (Bld) 0.3 % Normal 0.0-6.0 [facility] Comment on above: Performed By: #### L [id number] ####[facility] ([facility] [place] [place] [address] Erythrocyte distribution width (RBC) [Ratio] 12.6 % Normal 11.5-15.0 [facility] Comment on above: Performed By: #### L [id number] ####[facility] ([facility])[address] [place] [place] [address] ERYTHROCYTE MEAN CORPUSCULAR HEMOGLOBIN CONCENTRATION (G/DL) BY AUTOMATED 33.7 g/dL Normal 32.0-35.0 [facility] Comment on above: Performed By: #### L [id number] ####[facility] ([facility])[address] [place] [address] Hematocrit (Bld) [Volume fraction] 45.1 % Normal 36.0-48.0 [facility] Comment on above: Performed By: #### L [id number] ####[facility] ([facility])[address] [place] [place] [address] Hemoglobin (Bld) [Mass/Vol] 15.2 g/dL High 12.0-15.0 [facility] Comment on above: Performed By: #### L [id number] ####[facility] ([facility])[address] [place] [place] [address] Immature granulocytes (Bld) [#/Vol] 0.04 10*3/uL Normal 0.00-0.20 [facility] Comment on above: Performed By: #### L [id number] ####[facility] ([facility] [place] [place] [address] Immature granulocytes/100 WBC (Bld) 0.6 % Normal 0.0-1.0 [facility] Comment on above: Performed By: #### L [id number] ####[facility] ([facility] [place] [place] [address] Lymphocytes (Bld) [#/Vol] 1.44 10*3/uL Normal 1.20-4.00 [facility] Comment on above: Performed By: #### L [id number] ####[facility] (BEAKER)[address] [place] [place] [address] Lymphocytes/100 WBC (Bld) 21.8 % Normal 20.0-45.0 [facility] Comment on above: Performed By: #### L [id number] ####[facility] (BEAKER)[address] [place] [place] [address] MCH (RBC) [Entitic mass] 31.5 pg Normal 27.0-33.0 [facility] Comment on above: Performed By: #### L [id number] ####[facility] (BEAKER)[address] [place] [place] [address] MCV (RBC) [Entitic vol] 93.6 fL Normal 82.0-98.0 [facility] Comment on above: Performed By: #### L [id number] ####[facility] (BEAKER)[address] [place] [place] [address] Monocytes (Bld) [#/Vol] 0.46 10*3/uL Normal 0.10-1.00 [facility] Comment on above: Performed By: #### L [id number] ####[facility] (BEAKER)[address] [place] [place] [address] Monocytes/100 WBC (Bld) 7.0 % Normal 5.0-12.0 [facility] Comment on above: Performed By: #### L [id number] ####[facility] (BEAKER)[address] [place] [place] [address] Neutrophils (Bld) [#/Vol] 4.57 10*3/uL Normal 1.60-7.60 [facility] Comment on above: Performed By: #### L [id number] ####[facility] (BEAKER)[address] [place] [place] [address] Neutrophils/100 WBC (Bld) 69.2 % Normal 40.0-72.0 [facility] Comment on above: Performed By: #### L [id number] ####[facility] (BEAKER)[address] [place] [address] NRBC (PER 100 WBCS) BY AUTOMATED COUNT 0.0 % Normal 0 [facility] Comment on above: Performed By: #### L [id number] ####[facility] ([facility])[address] [place] [address] PLATELETS (10*3/UL) IN BLOOD AUTOMATED COUNT 207 10*3/uL Normal 150-400 [facility] Comment on above: Performed By: #### L [id number] ####[facility] ([facility])[address] [place] [address] RBC (Bld) [#/Vol] 4.82 10*6/uL Normal 3.80-5.00 [facility] Comment on above: Performed By: #### L [id number] ####[facility] ([facility])[address] [place] [address] WBC (Bld) [#/Vol] 6.60 10*3/uL Normal 4.00-10.60 [facility] Comment on above: Performed By: #### L [id number] ####[facility] ([facility])[address] [place] [address] MAGNESIUMon 12-11-2023 Magnesium [Mass/Vol] 2.2 mg/dL Normal 1.9-2.7 [facility] Comment on above: Performed By: #### L [id number] ####[facility] ([facility])[address] [place] [address] MRSA/MSSA DNA NASALon 2023 MRSA DNA Negative Normal Negative [facility] Comment on above: Order Comment: Testi ng methodology is an automated qualitative in vitro diagnostic test for the directdetection and differentiation of Staphylococcus aureus (SA) DNA and methicillin-resistant Staphylococcus aureus (MRSA) DNA from nasal swabs in patients at risk for nasal colonization. The test utilizes real-time polymerase chain reaction (PCR) for the amplification of MRSA/SA DNA and fluorogenic target-specific hybridization probes for the detection of the amplified DNA. A negative result does not preclude nasal colonization. Performed By: #### L [id number] ####[facility] (BEAKER)[address] [place] [address] MSSA DNA Negative Normal Negative [facility] Comment on above: Order Comment: Christina mercado methodology is an automated qualitative in vitro diagnostic test for the directdetection and differentiation of Staphylococcus aureus (SA) DNA and methicillin-resistant Staphylococcus aureus (MRSA) DNA from nasal swabs in patients at risk for nasal colonization. The test utilizes real-time polymerase chain reaction (PCR) for the amplification of MRSA/SA DNA and fluorogenic target-specific hybridization probes for the detection of the amplified DNA. A negative result does not preclude nasal colonization. Performed By: #### L [id number] ####[facility] ([facility])[address] [place] [address] PHOSPHORUSon 12-11-2023 Magnesium [Mass/Vol] 4.5 mg/dL Normal 2.5-5.0 [facility] Comment on above: Performed By: #### L [id number] ####[facility] ([facility])[address] [place] [address] PROTIME-INRon 12-11-2023 INR IN PPP BY COAGULATION ASSAY 0.99 Normal 0.90-1.10 [facility] Comment on above: Result Comment: ACCC P RECOMMENDED INR FOR WARFARIN THERAPY CONDITION INRPROPHYLAXIS OF VENOUS THROMBOSIS 2-3(HIGH-RISK SURGERY)TREATMENT OF VENOUS THROMBOSIS 2-3TREATMENT OF PULMONARY EMBOLISM 2-3PREVENTION OF SYSTEMIC EMBOLISM: 2-3 ACUTE MYOCARDIAL INFARCTION TISSUE HEART VALVES VALVULAR HEART DISEASE ATRIAL FIBRILLATION RECURRENT SYSTEMIC EMBOLISMMECHANICAL HEART VALVE 2.5-3.5 FROM: ORAL ANTICOAGULANTS. MECHANISM OF ACTION, CLINICAL EFFECTIVENESS, AND OPTIMAL THERAPEUTIC RANGE. CHEST 1995;108:[id number]. Performed By: #### L [id number] ####[facility] ([facility])[address] [place] [address] PROTHROMBIN TIME (PT) IN PPP BY COAGULATION ASSAY 13.1 Seconds Normal 12.3-14.8 [facility] Comment on above: Performed By: #### L [id number] ####[facility] ([facility])[address] [place] [address] TYPE AND SCREENon 12-11-2023 AB SCREEN Negative Normal [facility] Comment on above: Performed By: #### L [id number] ####[facility], ABO group Nom (Bld) A Normal [facility] Comment on above: Performed By: #### L [id number] ####[facility], RH TYPE IN BLOOD Positive Normal [facility] Comment on above: Performed By: #### L [id number] ####[facility], URINALYSIS MICROSCOPIC WITH REFLEX CULTUREon 12-11-2023 CASTS IN URINE Normal [facility] Comment on above: Performed By: #### L [id number] ####[facility] ([facility])[address] [place] [address] CRYSTALS IN URINE Normal [facility] Comment on above: Performed By: #### L [id number] ####[facility] ([facility])[address] [place] [address] OTHER MICROSCOPIC ELEMENTS Normal [facility] Comment on above: Performed By: #### L [id number] ####[facility] ([facility])[address] [place] [address] RBC (#/HPF) IN URINE SEDIMENT 0-2 Abnormal None Seen [facility] Comment on above: Performed By: #### L [id number] ####[facility] ([facility])[address] [place] [address] SQUAMOUS EPITHELIAL CELLS (#/HPF) IN URINE SEDIMENT Many Abnormal None Seen, Occasional [facility] [facility] Comment on above: Performed By: #### L [id number] ####[facility] (BEAKER)[address] [place] [address] WBC (LEUKOCYTE) (#/HPF) IN URINE SEDIMENT 51-100 Abnormal None Seen [facility] Comment on above: Performed By: #### L [id number] ####[facility] (BEAKER)[address] [place] [address] URINALYSIS WITH REFLEX CULTU REon 12-11-2023 BILIRUBIN, TOTAL PRESENCE IN URINE Negative Normal Negative [facility] Comment on above: Performed By: #### L [id number] ####[facility] ([facility])[address] [place] [address] Clarity (U) Slightly Cloudy Abnormal Clear [facility] Comment on above: Performed By: #### L [id number] ####[facility] (BEAKER)[address] [place] [address] Color (U) Yellow Normal Yellow [facility] Comment on above: Performed By: #### L [id number] ####[facility] (BEAKER)[address] [place] [address] Glucose (U) [Mass/Vol] Negative Normal [facility] above: Performed By: #### L [id number] ####[facility] (BEAKER)[address] [place] [address] HEMOGLOBIN PRESENCE IN URINE Negative Normal Negative [facility] Comment on above: Performed By: #### L [id number] ####[facility] ([facility]AKER)[address] [place] [address] Ketones Ql (U) Trace Abnormal Negative [facility] Comment on above: Performed By: #### L [id number] ####[facility] (BEAKER)[address] [place] [address] LEUKOCYTE ESTERASE PRESENCE IN URINE BY TEST STRIP Moderate Abnormal Negative [facility] Comment on above: Performed By: #### L [id number] ####[facility] (BEAKER)[address] [place] [address] NITRITE PRESENCE IN URINE Negative Normal Negative [facility] Comment on above: Performed By: #### L [id number] ####[facility] ([facility])[address] [place] [place] [address] pH (U) 6.0 [pH] Normal 5.0-8.0 [facility] Comment on above: Performed By: #### L [id number] ####[facility] ([facility])[address] [place] [place] [address] Protein (U) [Mass/Vol] Negative Normal Negative [facility] Comment on above: Performed By: #### L [id number] ####[facility] ([facility])[address] [place] [place] [address] Specific gravity (U) [Rel density] 1.016 Normal 1.015-1.020 [facility] Comment on above: Performed By: #### L [id number] ####[facility] ([facility])[address] [place] [place] [address] 30on 12-10-2023 30 Normal [facility] 30 Normal [facility] ANTI-XA (HEPARIN LEVEL)on HEPARIN UNFRACTIONATED (U/ML) IN PPP BY CHROMOGENIC METHOD 0.41 IU/mL Normal 0.3-0.7 [facility] Comment on above: Result Comment: Firth roxaban and Apixaban will interfere with the anti Xa assay used to monitor UFH and LMWH. Performed By: #### L [id number] ####[facility] ([facility])[address] [place] [place] [address] APTTon 12-10-2023 ACTIVATED PARTIAL THROMBOPLASTIN TIME IN PPP BY COAGULATION ASSAY 87.5 Seconds High 25.0-35.0 [facility] Comment on above: Result Comment: Clin ical significance of the APTT is questionable in the presence of heparin. Performed By: #### L [id number] ####[facility] ([facility])[address] [place] [place] [address] BASIC METABOLIC PANELon 11-22 Anion gap [Moles/Vol] 9 mmol/L Normal 7-20 [facility] Comment on above: Performed By: #### L [id number] ####[facility] ([facility])[address] [place] [address] Calcium [Mass/Vol] 9.0 mg/dL Normal 8.6-10.3 [facility] Comment on above: Performed By: #### L [id number] ####[facility] ([facility])[address] [facility] [place] [place] [address] Chloride [Moles/Vol] 101 mmol/L Normal 98-107 [facility] Comment on above: Performed By: #### L [id number] ####[facility] ([facility])[address] [facility] [place] [address] CO2 [Moles/Vol] 26 mmol/L Normal 21-31 [facility] Comment on above: Performed By: #### L [id number] ####[facility] ([facility])[address] [facility] [place] [place] [address] Creatinine [Mass/Vol] 0.85 mg/dL Normal 0.60-1.20 [facility] Comment on above: Performed By: #### L [id number] ####[facility] ([facility])[address] [facility] [place] [place] [address] GLOMERULAR FILTRATION RATE ML/MIN/1.73 SQ M.PREDICTED 77.4 mL/min/1.73m*2 Normal >60.0 [facility] Comment on above: Result Comment: [facility]???s estimated glomerular filtration rate (eGFR) will no longer include consideration of race in its calculation. The National Kidney Foundation???s eGFR Task Force developed new recommendations for the estimation of the glomerular filtration rate in the [place] They recommend immediate implementation of the new equation refit without the race variable in all laboratories because the calculation does not include race. In addition to not including race in the calculation and reporting, it included diversity in its development, and has acceptable performance characteristics and potential consequences that do not disproportionately affect any one group of individuals. Performed By: #### L [id number] ####[facility] (BEAKER)[address] [place] [address] Glucose [Mass/Vol] 118 mg/dL High 70-100 [facility] Comment on above: Performed By: #### L [id number] ####[facility] (BEAKER)[address] [place] [address] Potassium [Moles/Vol] 4.4 mmol/L Normal 3.5-5.1 [facility] Comment on above: Performed By: #### L [id number] ####[facility] (BEAKER)[address] [place] [address] Sodium [Moles/Vol] 132 mmol/L Low 136-145 [facility] Comment on above: Performed By: #### L [id number] ####[facility] ([facility] [place] [address] Urea nitrogen [Mass/Vol] 15 mg/dL Normal 7-25 [facility] Comment on above: Performed By: #### L [id number] ####[facility] ([facility])[address] [place] [address] UREA NITROGEN/CREATININE (MASS RATIO) IN SER/PLAS 17.6 Normal [facility] Comment on above: Performed By: #### L [id number] ####[facility] ([facility])[address] [place] [address] NURSNOTEon 12-10-2023 NURSNOTE Patient off unit for MRI. Normal [facility] Orders Onlyon 12-10-2023 Orders Only Normal [facility] 30on 12-09-2023 30 Normal [facility] 30 The patient is Moder ately Stable - Low risk of patient condition declining or worsening The patient's goals for the shift include testing The clinical goals for the shift include testing Normal [facility] APTTon 12-09-2023 ACTIVATED PARTIAL THROMBOPLASTIN TIME IN PPP BY COAGULATION ASSAY 90.0 Seconds High 25.0-35.0 [facility] Comment on above: Result Comment: Clin ical significance of the APTT is questionable in the presence of heparin. Performed By: #### L [id number] ####[facility] (BEAKER)[address] [place] [place] [address] Anesthesiaon 12-09-2023 Anesthesia Normal [facility] CBCon 12-09-2023 Erythrocyte distribution width (RBC) [Ratio] 12.4 % Normal 11.5-15.0 [facility] Comment on above: Performed By: #### L [id number] ####[facility] ([facility])[address] [place] [place] [address] ERYTHROCYTE MEAN CORPUSCULAR HEMOGLOBIN CONCENTRATION (G/DL) BY AUTOMATED 34.2 g/dL Normal 32.0-35.0 [facility] Comment on above: Performed By: #### L [id number] ####[facility] ([facility])[address] [place] [place] [address] Hematocrit (Bld) [Volume fraction] 43.3 % Normal 36.0-48.0 [facility] Comment on above: Performed By: #### L [id number] ####[facility] ([facility])[address] [place] [place] [address] Hemoglobin (Bld) [Mass/Vol] 14.8 g/dL Normal 12.0-15.0 [facility] Comment on above: Performed By: #### L [id number] ####[facility] ([facility] [place] [place] [address] MCH (RBC) [Entitic mass] 31.3 pg Normal 27.0-33.0 [facility] Comment on above: Performed By: #### L [id number] ####[facility] ([facility] [place] [place] [address] MCV (RBC) [Entitic vol] 91.5 fL Normal 82.0-98.0 [facility] Comment on above: Performed By: #### L [id number] ####[facility] ([facility] [place] [place] [address] PLATELETS (10*3/UL) IN BLOOD AUTOMATED COUNT 203 10*3/uL Normal 150-400 [facility] Comment on above: Performed By: #### L [id number] ####[facility] ([facility])[address] [place] [address] RBC (Bld) [#/Vol] 4.73 10*6/uL Normal 3.80-5.00 [facility] Comment on above: Performed By: #### L [id number] ####[facility] ([facility])[address] [place] [address] WBC (Bld) [#/Vol] 4.95 10*3/uL Normal 4.00-10.60 [facility] Comment on above: Performed By: #### L [id number] ####[facility] ([facility])[address] [place] [address] CONSULTon 12-09-2023 CONSULT Normal [facility] MRI CARDIAC MORPHOLOGY AND F UNCTION W AND WO IV CONTRASTon 12-09-2023 MRI CARDIAC MORPHOLOGY AND FUNCTION W AND WO IV CONTRAST Invalid Interpretation Code [facility] 30on 12-08-2023 30 Normal [facility] 30 Normal [facility] APTTon 12-08-2023 ACTIVATED PARTIAL THROMBOPLASTIN TIME IN PPP BY COAGULATION ASSAY 100.5 Seconds High 25.0-35.0 [facility] Comment on above: Result Comment: Clin ical significance of the APTT is questionable in the presence of heparin. Performed By: #### L [id number] ####[facility] ([facility])[address] [place] [address] Orders Onlyon 12-08-2023 Orders Only Normal [facility] TYPE AND SCREENon 12-08-2023 AB SCREEN Negative Normal [facility] Comment on above: Performed By: #### L [id number] ####[facility], ABO group Nom (Bld) A Normal [facility] Comment on above: Performed By: #### L [id number] ####[facility], RH TYPE IN BLOOD Positive Normal [facility] Comment on above: Performed By: #### L [id number] ####[facility]-2023 ACTIVATED PARTIAL THROMBOPLASTIN TIME IN PPP BY COAGULATION ASSAY 83.7 Seconds High 25.0-35.0 [facility] Comment on above: Result Comment: Clin ical significance of the APTT is questionable in the presence of heparin. Performed By: #### L [id number] ####[facility] ([facility])[address] [place] [address] ACTIVATED PARTIAL THROMBOPLASTIN TIME IN PPP BY COAGULATION ASSAY 84.7 Seconds High 25.0-35.0 [facility] Comment on above: Result Comment: Clin ical significance of the APTT is questionable in the presence of heparin. Performed By: #### L [id number] ####[facility] ([facility])[address] [place] [address] ACTIVATED PARTIAL THROMBOPLASTIN TIME IN PPP BY COAGULATION ASSAY 94.5 Seconds High 25.0-35.0 [facility] Comment on above: Result Comment: Clin ical significance of the APTT is questionable in the presence of heparin. Performed By: #### L [id number] ####[facility] ([facility])[address] [place] [address] CBCon 12-07-2023 Erythrocyte distribution width (RBC) [Ratio] 12.5 % Normal 11.5-15.0 [facility] Comment on above: Performed By: #### L [id number] ####[facility] ([facility])[address] [place] [address] ERYTHROCYTE MEAN CORPUSCULAR HEMOGLOBIN CONCENTRATION (G/DL) BY AUTOMATED 34.2 g/dL Normal 32.0-35.0 [facility] Comment on above: Performed By: #### L [id number] ####[facility] ([facility])[address] [place] [address] Hematocrit (Bld) [Volume fraction] 42.7 % Normal 36.0-48.0 [facility] Comment on above: Performed By: #### L [id number] ####[facility] ([facility])[address] [place] [address] Hemoglobin (Bld) [Mass/Vol] 14.6 g/dL Normal 12.0-15.0 [facility] Comment on above: Performed By: #### L [id number] ####[facility] ([facility])[address] [place] [address] MCH (RBC) [Entitic mass] 31.5 pg Normal 27.0-33.0 [facility] Comment on above: Performed By: #### L [id number] ####[facility] ([facility])[address] [place] [place] [address] MCV (RBC) [Entitic vol] 92.0 fL Normal 82.0-98.0 [facility] Comment on above: Performed By: #### L [id number] ####[facility] ([facility])[address] [place] [address] PLATELETS (10*3/UL) IN BLOOD AUTOMATED COUNT 221 10*3/uL Normal 150-400 [facility] Comment on above: Performed By: #### L [id number] ####[facility] ([facility])[address] [place] [address] RBC (Bld) [#/Vol] 4.64 10*6/uL Normal 3.80-5.00 [facility] Comment on above: Performed By: #### L [id number] ####[facility] ([facility])[address] [place] [place] [address] WBC (Bld) [#/Vol] 4.68 10*3/uL Normal 4.00-10.60 [facility] Comment on above: Performed By: #### L [id number] ####[facility] ([facility])[address] [place] [address] 30on 12-06-2023 30 Normal [facility] APTTon 12-06-2023 ACTIVATED PARTIAL THROMBOPLASTIN TIME IN PPP BY COAGULATION ASSAY >200.0 Critically high 25.0-35.0 [facility] Comment on above: Result Comment: Clin ical significance of the APTT is questionable in the presence of heparin. Performed By: #### L [id number] ####[facility] ([facility])[address] [place] [place] [address] BASIC METABOLIC PANELon 11-22 Anion gap [Moles/Vol] 10 mmol/L Normal 7-20 [facility] Comment on above: Performed By: #### L [id number] ####[facility] ([facility])[address] [place] [place] [address] Calcium [Mass/Vol] 8.9 mg/dL Normal 8.6-10.3 [facility] Comment on above: Performed By: #### L [id number] ####[facility] ([facility])[address] [place] [place] [address] Chloride [Moles/Vol] 104 mmol/L Normal 98-107 [facility] Comment on above: Performed By: #### L [id number] ####[facility] ([facility])[address] [place] [place] [address] CO2 [Moles/Vol] 27 mmol/L Normal 21-31 [facility] Comment on above: Performed By: #### L [id number] ####[facility] ([facility])[address] [place] [place] [address] Creatinine [Mass/Vol] 0.74 mg/dL Normal 0.60-1.20 [facility] Comment on above: Performed By: #### L [id number] ####[facility] ([facility])[address] [place] [place] [address] GLOMERULAR FILTRATION RATE ML/MIN/1.73 SQ M.PREDICTED 91.4 mL/min/1.73m*2 Normal >60.0 [facility] Comment on above: Result Comment: [facility]???s estimated glomerular filtration rate (eGFR) will no longer include consideration of race in its calculation. The National Kidney Foundation???s eGFR Task Force developed new recommendations for the estimation of the glomerular filtration rate in the [place] They recommend immediate implementation of the new equation refit without the race variable in all laboratories because the calculation does not include race. In addition to not including race in the calculation and reporting, it included diversity in its development, and has acceptable performance characteristics and potential consequences that do not disproportionately affect any one group of individuals. Performed By: #### L [id number] ####[facility] ([facility])[address] [place] [address] Glucose [Mass/Vol] 133 mg/dL High 70-100 [facility] Comment on above: Performed By: #### L [id number] ####[facility] ([facility])[address] [place] [address] Potassium [Moles/Vol] 4.1 mmol/L Normal 3.5-5.1 [facility] Comment on above: Performed By: #### L [id number] ####[facility] ([facility] [place] [address] Sodium [Moles/Vol] 137 mmol/L Normal 136-145 [facility] Comment on above: Performed By: #### L [id number] ####[facility] ([facility])[address] [place] [address] Urea nitrogen [Mass/Vol] 15 mg/dL Normal 7-25 [facility] Comment on above: Performed By: #### L [id number] ####[facility] [place] [address] UREA NITROGEN/CREATININE (MASS RATIO) IN SER/PLAS 20.3 Normal [facility] Comment on above: Performed By: #### L [id number] ####[facility] ([facility])[address] [place] [address] CBCon 12-06-2023 Erythrocyte distribution width (RBC) [Ratio] 12.7 % Normal 11.5-15.0 [facility] Comment on above: Performed By: #### L [id number] ####[facility] ([facility] [place] [address] ERYTHROCYTE MEAN CORPUSCULAR HEMOGLOBIN CONCENTRATION (G/DL) BY AUTOMATED 34.1 g/dL Normal 32.0-35.0 [facility] Comment on above: Performed By: #### L [id number] ####[facility] ([facility])[address] [place] [address] Hematocrit (Bld) [Volume fraction] 44.0 % Normal 36.0-48.0 [facility] Comment on above: Performed By: #### L [id number] ####[facility] ([facility])[address] [place] [address] Hemoglobin (Bld) [Mass/Vol] 15.0 g/dL Normal 12.0-15.0 [facility] Comment on above: Performed By: #### L [id number] ####[facility] ([facility])[address] [place] [address] MCH (RBC) [Entitic mass] 30.9 pg Normal 27.0-33.0 [facility] Comment on above: Performed By: #### L [id number] ####[facility] ([facility])[address] [place] [place] [address] MCV (RBC) [Entitic vol] 90.7 fL Normal 82.0-98.0 [facility] Comment on above: Performed By: #### L [id number] ####[facility] ([facility])[address] [place] [address] PLATELETS (10*3/UL) IN BLOOD AUTOMATED COUNT 226 10*3/uL Normal 150-400 [facility] Comment on above: Performed By: #### L [id number] ####[facility] ([facility])[address] [place] [place] [address] RBC (Bld) [#/Vol] 4.85 10*6/uL Normal 3.80-5.00 [facility] Comment on above: Performed By: #### L [id number] ####[facility] ([facility])[address] [address] WBC (Bld) [#/Vol] 6.22 10*3/uL Normal 4.00-10.60 [facility] Comment on above: Performed By: #### L [id number] ####[facility] ([facility])[address] [place] [address] CONSULTon 12-06-2023 CONSULT Normal [facility] CONSULT Normal [facility] CT ABDOMEN PELVIS W IV CONTR Marisabel 12-06-2023 CT ABDOMEN PELVIS W IV CONTRAST Normal [facility] CT CHEST W IV CONTRASTon CT CHEST W IV CONTRAST Normal [facility] HEMOGLOBIN A1Con 12-06-2023 Glucose [Mass/Vol] 120 mg/dL Normal [facility] Comment on above: Performed By: #### L [id number] ####[facility] ([facility])[address] [place] [address] HbA1c (Bld) [Mass fraction] 5.8 % Normal 4.0-6.0 [facility] Comment on above: Performed By: #### L [id number] ####[facility] ([facility])[address] [place] [address] HPon 12-06-2023 HP Normal [facility] MRSA/MSSA DNA NASALon 2023 MRSA DNA Negative Normal Negative [facility] Comment on above: Order Comment: Testi ng methodology is an automated qualitative in vitro diagnostic test for the directdetection and differentiation of Staphylococcus aureus (SA) DNA and methicillin-resistant Staphylococcus aureus (MRSA) DNA from nasal swabs in patients at risk for nasal colonization. The test utilizes real-time polymerase chain reaction (PCR) for the amplification of MRSA/SA DNA and fluorogenic target-specific hybridization probes for the detection of the amplified DNA. A negative result does not preclude nasal colonization. Performed By: #### L [id number] ####[facility] ([facility])[address] [place] [address] MSSA DNA Negative Normal Negative [facility] Comment on above: Order Comment: Testi ng methodology is an automated qualitative in vitro diagnostic test for the directdetection and differentiation of Staphylococcus aureus (SA) DNA and methicillin-resistant Staphylococcus aureus (MRSA) DNA from nasal swabs in patients at risk for nasal colonization. The test utilizes real-time polymerase chain reaction (PCR) for the amplification of MRSA/SA DNA and fluorogenic target-specific hybridization probes for the detection of the amplified DNA. A negative result does not preclude nasal colonization. Performed By: #### L [id number] ####[facility] ([facility])[address] [place] [address] NURSNOTEon 12-06-2023 NURSNOTE Pt back from [place]. Lab called and notified that pt is available for stat blood draws before heparin drip is set up. Normal [facility] PLATELET COUNTon 12-06-2023 PLATELETS (10*3/UL) IN BLOOD AUTOMATED COUNT 269 10*3/uL Normal 150-400 [facility] Comment on above: Performed By: #### L [id number] ####[facility] [facility] [facility] [place] [place] [address] URINALYSISon 12-06-2023 BILIRUBIN, TOTAL PRESENCE IN URINE Negative Normal Negative [facility] Comment on above: Performed By: #### L [id number] ####[facility] ([facility])[address] [facility] [address] Clarity (U) Clear Normal Clear [facility] Comment on above: Performed By: #### L [id number] ####[facility] ([facility])[address] [facility] [address] Color (U) Yellow Normal Yellow [facility] Comment on above: Performed By: #### L [id number] ####[facility] ([facility])[address] [place] [address] Glucose (U) [Mass/Vol] Negative Normal Negative [facility] Comment on above: Performed By: #### L [id number] ####[facility] ([facility])[address] [place] [address] HEMOGLOBIN PRESENCE IN URINE Small Abnormal Negative [facility] Comment on above: Performed By: #### L [id number] ####[facility] ([facility])[address] [place] [address] Ketones Ql (U) Negative Normal Negative [facility] Comment on above: Performed By: #### L [id number] ####[facility] ([facility])[address] [place] [address] LEUKOCYTE ESTERASE PRESENCE IN URINE BY TEST STRIP Trace Abnormal Negative [facility] Comment on above: Performed By: #### L [id number] ####[facility] ([facility])[address] [place] [address] NITRITE PRESENCE IN URINE Negative Normal Negative [facility] Comment on above: Performed By: #### L [id number] ####[facility] ([facility])[address] [place] [address] pH (U) 7.0 [pH] Normal 5.0-8.0 [facility] Comment on above: Performed By: #### L [id number] ####[facility] ([facility])[address] [place] [address] Protein (U) [Mass/Vol] Negative Normal Negative [facility] Comment on above: Performed By: #### L [id number] ####[facility] ([facility])[address] [place] [address] Specific gravity (U) [Rel density] 1.031 High 1.015-1.020 [facility] Comment on above: Performed By: #### L [id number] ####[facility] ([facility])[address] [place] [address] URINALYSIS MICROSCOPICon CASTS IN URINE Normal [facility] Comment on above: Performed By: #### L [id number] ####[facility] ([facility])[address] [place] [address] CRYSTALS IN URINE Normal [facility] Comment on above: Performed By: #### L [id number] ####[facility] ([facility])[address] [place] [address] MUCUS (#/HPF) IN URINE SEDIMENT Few Normal None Seen, Occasional, Few [facility] Comment on above: Performed By: #### L [id number] ####[facility] ([facility])[address] [place] [address] RBC (#/HPF) IN URINE SEDIMENT 0-2 Abnormal None Seen [facility] Comment on above: Performed By: #### L [id number] ####[facility] ([facility])[address] [place] [address] SQUAMOUS EPITHELIAL CELLS (#/HPF) IN URINE SEDIMENT Moderate Abnormal None Seen, Occasional [facility] Comment on above: Performed By: #### L [id number] ####[facility] ([facility])[address] [place] [address] WBC (LEUKOCYTE) (#/HPF) IN URINE SEDIMENT 0-2 Abnormal None Seen [facility] Comment on above: Performed By: #### L [id number] ####[facility] ([facility])[address] [place] [address] 30on 12-05-2023 30 Normal [facility] ANESon 12-05-2023 ANES Normal [facility] B-TYPE NATRIURETIC PEPTIDEon 12-05-2023 Natriuretic peptide B (Bld) [Mass/Vol] 506 pg/mL High 0-100 [facility] Comment on above: Performed By: #### L [id number] ####[facility] ([facility])[address] [place] [address] BASIC METABOLIC PANELon 11-22 Anion gap [Moles/Vol] 12 mmol/L Normal 7-20 Uni [facility] Comment on above: Performed By: #### L [id number] ####[facility] ([facility])[address] [place] [address] Calcium [Mass/Vol] 9.1 mg/dL Normal 8.6-10.3 [facility] Comment on above: Performed By: #### L [id number] ####[facility] [place] [address] Chloride [Moles/Vol] 99 mmol/L Normal 98-107 [facility] Comment on above: Performed By: #### L [id number] ####[facility])[address] [place] [address] CO2 [Moles/Vol] 27 mmol/L Normal 21-31 [facility] Comment on above: Performed By: #### L [id number] ####[facility] ([facility])[address] [place] [address] Creatinine [Mass/Vol] 1.12 mg/dL Normal 0.60-1.20 [facility] Comment on above: Performed By: #### L [id number] ####[facility] ([facility])[address] [place] [place], [place] [address] GLOMERULAR FILTRATION RATE ML/MIN/1.73 SQ M.PREDICTED 55.6 mL/min/1.73m*2 Low >60.0 [facility] Comment on above: Result Comment: The [facility]???s estimated glomerular filtration rate (eGFR) will no longer include consideration of race in its calculation. The National Kidney Foundation???s eGFR Task Force developed new recommendations for the estimation of the glomerular filtration rate in the [place] They recommend immediate implementation of the new equation refit without the race variable in all laboratories because the calculation does not include race. In addition to not including race in the calculation and reporting, it included diversity in its development, and has acceptable performance characteristics and potential consequences that do not disproportionately affect any one group of individuals. Performed By: #### L [id number] ####[facility] ([facility])[address] [place] [address] Glucose [Mass/Vol] 111 mg/dL High 70-100 [facility] Comment on above: Performed By: #### L [id number] ####[facility] ([facility])[address] [place] [place] [address] Potassium [Moles/Vol] 4.2 mmol/L Normal 3.5-5.1 [facility] Comment on above: Performed By: #### L [id number] ####[facility] ([facility])[address] [place] [place] [address] Sodium [Moles/Vol] 134 mmol/L Low 136-145 [facility] Comment on above: Performed By: #### L [id number] ####[facility] ([facility])[address] [place] [address] Urea nitrogen [Mass/Vol] 18 mg/dL Normal 7-25 [facility] Comment on above: Performed By: #### L [id number] ####[facility] ([facility])[address] [place] [address] UREA NITROGEN/CREATININE (MASS RATIO) IN SER/PLAS 16.1 Normal [facility] Comment on above: Performed By: #### L [id number] ####[facility] ([facility])[address] [place] [address] CBCon 12-05-2023 Erythrocyte distribution width (RBC) [Ratio] 12.6 % Normal 11.5-15.0 [facility] Comment on above: Performed By: #### L [id number] ####[facility] ([facility])[address] [place] [address] ERYTHROCYTE MEAN CORPUSCULAR HEMOGLOBIN CONCENTRATION (G/DL) BY AUTOMATED 33.9 g/dL Normal 32.0-35.0 [facility] Comment on above: Performed By: #### L [id number] ####[facility] ([facility] [place] [address] Hematocrit (Bld) [Volume fraction] 46.9 % Normal 36.0-48.0 [facility] Comment on above: Performed By: #### L [id number] ####[facility] ([facility])[address] [place] [address] Hemoglobin (Bld) [Mass/Vol] 15.9 g/dL High 12.0-15.0 [facility] Comment on above: Performed By: #### L [id number] ####[facility] ([facility])[address] [place] [address] MCH (RBC) [Entitic mass] 31.3 pg Normal 27.0-33.0 [facility] Comment on above: Performed By: #### L [id number] ####[facility] ([facility])[address] [place] [address] MCV (RBC) [Entitic vol] 92.3 fL Normal 82.0-98.0 [facility] Comment on above: Performed By: #### L [id number] ####[facility] ([facility])[address] [place] [address] PLATELETS (10*3/UL) IN BLOOD AUTOMATED COUNT 273 10*3/uL Normal 150-400 [facility] Comment on above: Performed By: #### L [id number] ####[facility] ([facility])[address] [place] [address] RBC (Bld) [#/Vol] 5.08 10*6/uL High 3.80-5.00 [facility] Comment on above: Performed By: #### L [id number] ####[facility] ([facility])[address] [place] [address] WBC (Bld) [#/Vol] 6.71 10*3/uL Normal 4.00-10.60 [facility] Comment on above: Performed By: #### L [id number] ####[facility] ([facility])[address] [place] [address] HPon 12-05-2023 HP Normal [facility] HP Normal [facility] LIPID PANELon 12-05-2023 CHOL/HDL 3.6 mg/dL Normal [facility] Comment on above: Performed By: #### L [id number] ####[facility] ([facility])[address] [place] [address] Cholesterol [Mass/Vol] 174 mg/dL Normal 120-200 [facility] Comment on above: Performed By: #### L [id number] ####[facility] ([facility])[address] [place] [address] Magnesium [Mass/Vol] 157 mg/dL High 40-149 [facility] Comment on above: Result Comment: TRIG LYCERIDE REFERENCE RANGE:20 YEARS AND OLDER CARDIOVASCULAR RISKLESS THAN 150 mg/dL LOW [id number] TO 199 mg/dL BORDERLINE RALT724 mg/dL AND GREATER HIGH RISK Performed By: #### L [id number] ####[facility] ([facility])[address] [place] [address] Magnesium [Mass/Vol] 95 mg/dL Normal 0-160 [facility] Comment on above: Performed By: #### L [id number] ####[facility] ([facility])[address] [place] [address] Magnesium [Mass/Vol] 48 mg/dL Normal 23-92 [facility] Comment on above: Performed By: #### L [id number] ####[facility] ([facility])[address] [place] [address] NON HDL CHOL. (LDL+VLDL) 126 Normal [facility] Comment on above: Performed By: #### L [id number] ####[facility] ([facility])[address] [place] [address] TOTAL VLDL-C 31 mg/dL Normal 0-40 [facility] Comment on above: Performed By: #### L [id number] ####[facility] ([facility])[address] [place] [address] Labon 12-05-2023 Lab Normal [facility] MAGNESIUMon 12-05-2023 Magnesium [Mass/Vol] 2.0 mg/dL Normal 1.9-2.7 [facility] Comment on above: Performed By: #### L [id number] ####[facility] ([facility])[address] [place] [address] NURSNOTEon 12-05-2023 NURSNOTE Report called to Virginia martinez RN, she denies questions/concerns. Normal [facility] TROPONIN Ion 12-05-2023 Troponin I.cardiac [Mass/Vol] 0.06 ng/mL High 0.00-0.04 [facility] Comment on above: Performed By: #### L [id number] ####[facility] ([facility])[address] [place] [address] TSHon 12-05-2023 THYROTROPIN (MIU/L) IN SER/PLAS BY DETECTION LIMIT <= 0.05 MIU/L 3.41 mIU/L Normal 0.34-5.60 [facility] Comment on above: Performed By: #### L [id number] ####[facility] ([facility])[address] [place] [address] BNP ser/plasOrdered By: Maylin Alarcon on 12-04-2023 Natriuretic peptide B (Bld) [Mass/Vol] 648.0 pg/mL High 5-100 [facility] Comment on above: Result Comment: PERF ORMED BY: [place] [address] PATHOLOGIST DEVELOPMENTAL MATHEMATICS INSTRUCTOR HARVINDER GAGE M.D. Performed By: #### V ITD+D2+D3, THYROID PROF II #### [facility] , #### CMP, CBC #### [facility] [address] [place] [address] [place] Orders Onlyon 12-04-2023 Orders Only Normal [facility] Troponin I High Sensitivityo n 12-04-2023 Troponin I High Sensitivity 36.1 pg/mL High 0.0-15.0 [facility] Comment on above: Result Comment: PERF ORMED BY: [place] [address] PATHOLOGIST DEVELOPMENTAL MATHEMATICS INSTRUCTOR HARVINDER GAGE M.D. Performed By: #### V ITD+D2+D3, THYROID PROF II #### [facility] , #### CMP, CBC #### [facility] [address] [place] [address] Troponin I.cardiac [Mass/vol ume] in Serum or Plasma by Detection limit <= 0.01 ng/Ordered By: Gale Alarcon on 12-04-2023 Troponin I.cardiac DL <= 0.01 ng/mL [Mass/Vol] 36.1 pg/mL High 0.0-15.0 [facility] HPon 12-03-2023 HP Normal [facility] Alanine aminotransferase [En zymatic activity/volume] in Serum or PlasmaOrdered By: Barby Chen on 12-02-2023 ALT [Catalytic activity/Vol] 15 U/L 7-52 [facility] Comment on above: Performed By: #### E SR, CBC, CMP #### [address] Albumin [Mass/volume] in Ser um or Plasma by Bromocresol green (BCG) dye binding methoOrdered By: Barby Chen on 12-02-2023 Albumin BCG dye [Mass/Vol] 4.3 g/dL 3.5-5.7 [facility] Alkaline phosphatase [Enzyma tic activity/volume] in Serum or PlasmaOrdered By: Barby Chen on 12-02-2023 ALP [Catalytic activity/Vol] 87 U/L 34-104 [facility] Comment on above: Result Comment: PERF ORMED BY: [place] [address] PATHOLOGIST DEVELOPMENTAL MATHEMATICS INSTRUCTOR HARVINDER GAGE M.D. Performed By: #### E SR, CBC, CMP #### [address] Aspartate aminotransferase [ Enzymatic activity/volume] in Serum or PlasmaOrdered By: Barby Chen on 12-02-2023 AST [Catalytic activity/Vol] 20 U/L 13-39 [facility] Comment on above: Performed By: #### E SR, CBC, CMP #### [address] Automated basophil %Ordered By: Barby Chen on 12-02-2023 Basophils/100 WBC (Bld) 0.9 % . [facility] Comment on above: Performed By: #### E SR, CBC, CMP #### [address] Automated basophil countOrde red By: Barby Chen on 12-02-2023 Basophils (Bld) [#/Vol] 0.1 10*3/uL 0.0-0.2 [facility] Comment on above: Performed By: #### E SR, CBC, CMP #### [address] Automated blood monocyte cou ntOrdered By: Barby Chen on 12-02-2023 Monocytes (Bld) [#/Vol] 0.5 10*3/uL 0.0-0.8 [facility] Comment on above: Performed By: #### E SR, CBC, CMP #### [address] Automated eosinophil %Ordere d By: Barby Chen on 12-02-2023 Eosinophils/100 WBC (Bld) 0.1 % . [facility] Comment on above: Performed By: #### E SR, CBC, CMP #### [address] Automated eosinophil countOr dered By: Barby Chen on 12-02-2023 Eosinophils (Bld) [#/Vol] 0.0 10*3/uL 0.0-0.45 [facility] Comment on above: Performed By: #### E SR, CBC, CMP #### [address] Automated monocyte %Ordered By: Barby Chen on 12-02-2023 Monocytes/100 WBC (Bld) 6.3 % . [facility] Comment on above: Performed By: #### E SR, CBC, CMP #### [address] Automated neutrophil %Ordere d By: Barby Chen on 12-02-2023 Neutrophils/100 WBC (Bld) 77.8 % . [facility] Comment on above: Performed By: #### E SR, CBC, CMP #### [address] Bilirubin.total [Mass/volume ] in Serum or PlasmaOrdered By: Barby Chen on 12-02-2023 Bilirubin [Mass/Vol] 0.6 mg/dL 0.3-1.0 [facility] Comment on above: Performed By: #### E SR, CBC, CMP #### [facility] [address] [place] [address] Calcium [Mass/volume] in Ser um or PlasmaOrdered By: Barby Chen on 12-02-2023 Calcium [Mass/Vol] 9.5 mg/dL 8.6-10.3 [facility] Comment on above: Performed By: #### E SR, CBC, CMP #### [facility] [address] [place] [address] Carbon dioxide, total [Moles /volume] in Serum or PlasmaOrdered By: Barby Chen on 12-02-2023 CO2 [Moles/Vol] 27.8 mmol/L 21.0-31.0 [facility] Comment on above: Performed By: #### E SR, CBC, CMP #### [address] Chloride [Moles/volume] in S davi or PlasmaOrdered By: Barby Chen on 12-02-2023 Chloride [Moles/Vol] 98 mmol/L 98-107 [facility] Comment on above: Performed By: #### E SR, CBC, CMP #### [address] Complete Blood Count Auto Di ffon 12-02-2023 Mean Corpuscular HGB Conc 34.7 g/dL Normal 32.0-35.0 [facility] Comment on above: Performed By: #### E SR, CBC, CMP #### [address] NRBC% 0.1 /100{WBC} Normal 0-0.5 [facility] Comment on above: Performed By: #### E SR, CBC, CMP #### [facility] [address] [place] [address] Comprehensive Metabolic Pane kirit 12-02-2023 Albumin [Mass/Vol] 4.3 g/dL Normal 3.5-5.7 [facility] Comment on above: Performed By: #### E SR, CBC, CMP #### [address] GFR/1.73 sq M.predicted MDRD (S/P/Bld) [Vol rate/Area] mL/min/{1.73_m2} Normal [facility] Comment on above: Performed By: #### E SR, CBC, CMP #### [address] Creatinine [Mass/volume] in Serum or PlasmaOrdered By: Barby Chen on 12-02-2023 Creatinine [Mass/Vol] 0.88 mg/dL 0.60-1.20 [facility] Comment on above: Performed By: #### E SR, CBC, CMP #### [address] Erythrocyte Sedimentation Ra antonio 12-02-2023 ESR (Bld) [Velocity] 37 mm/h High 0-29 [facility] Comment on above: Result Comment: PERF ORMED BY: [place] [address] PATHOLOGIST DEVELOPMENTAL MATHEMATICS INSTRUCTOR HARVINDER GAGE M.D. Performed By: #### V ITD+D2+D3, THYROID PROF II #### [facility] , #### CMP, CBC #### [address] Erythrocyte distribution wid th [Ratio] by Automated countOrdered By: Barby Chen on 12-02-2023 Erythrocyte distribution width (RBC) [Ratio] 13.3 % 11.9-15.3 [facility] Comment on above: Performed By: #### E SR, CBC, CMP #### [address] Erythrocyte sedimentation ra te by Photometric methodOrdered By: Barby Chen on 12-02-2023 ESR Photometric method (Bld) [Velocity] 37 mm/hr High 0-29 [facility] Erythrocytes [#/volume] in B lood by Automated countOrdered By: Barby Chen on 12-02-2023 RBC (Bld) [#/Vol] 4.97 10*6/uL 3.60-5.00 [facility] Comment on above: Performed By: #### E SR, CBC, CMP #### [address] Glucose [Mass/volume] in Ser um or PlasmaOrdered By: Barby Chen on 12-02-2023 Glucose [Mass/Vol] 126 mg/dL High 70-100 [facility] Comment on above: ADA recommended refe rence rangeRandom Glucose Reference Range is dependent on time and content of last meal. Glucose of more than 200 mg/dL in a nonstressed, ambulatory subject supports the diagnosis of Diabetes Mellitus. Result Comment: [place] Glucose Reference Range is dependent on time and content of last meal. Glucose of more than 200 mg/dL in a nonstressed, ambulatory subject supports the diagnosis of Diabetes Mellitus. ADA recommended reference range Performed By: #### E SR, CBC, CMP #### [address] Hematocrit [Volume Fraction] of Blood by Automated countOrdered By: Barby Chen on 12-02-2023 Hematocrit (Bld) [Volume fraction] 45.3 % 34.0-46.4 [facility] Comment on above: Performed By: #### E SR, CBC, CMP #### [address] Hemoglobin [Mass/volume] in BloodOrdered By: Barby Chen on 12-02-2023 Hemoglobin (Bld) [Mass/Vol] 15.7 g/dL High 11.8-15.4 [facility] Comment on above: Performed By: #### E SR, CBC, CMP #### [address] Leukocytes [#/volume] correc chantelle for nucleated erythrocytes in Blood by Automated counOrdered By: Barby Chen on 12-02-2023 WBC corrected for nucl RBC Auto (Bld) [#/Vol] 7.9 10*3/uL 3.8-11.6 [facility] Leukocytes [#/volume] in Blo od by Automated countOrdered By: Barby Chen on 12-02-2023 WBC (Bld) [#/Vol] 7.9 10*3/uL 3.8-11.6 [facility] Comment on above: Performed By: #### E SR, CBC, CMP #### [address] Lymphocytes [#/volume] in Bl ood by Automated countOrdered By: Barby Chen on 12-02-2023 Lymphocytes (Bld) [#/Vol] 1.2 10*3/uL 1.00-4.8 [facility] Comment on above: Performed By: #### E SR, CBC, CMP #### [address] Lymphocytes/100 leukocytes i n Blood by Automated countOrdered By: Barby Chen on 12-02-2023 Lymphocytes/100 WBC (Bld) 14.9 % . [facility] Comment on above: Performed By: #### E SR, CBC, CMP #### [address] MCH [Entitic mass] by Automa chantelle countOrdered By: Barby Chen on 12-02-2023 MCH (RBC) [Entitic mass] 31.6 pg 24.7-34.3 [facility] Comment on above: Performed By: #### E SR, CBC, CMP #### [address] MCHC Auto (RBC) [Mass/Vol]Or dered By: Barby Chen on 12-02-2023 MCHC (RBC) [Mass/Vol] 34.7 g/dL 32.0-35.0 [facility] MCV [Entitic volume] by Auto mated countOrdered By: Barby Chen on 12-02-2023 MCV (RBC) [Entitic vol] 91.1 fL 80-100 [facility] Comment on above: Performed By: #### E SR, CBC, CMP #### [address] [place] [address] [place] Neutrophils [#/volume] in Bl ood by Automated countOrdered By: Barby Chen on 12-02-2023 Neutrophils (Bld) [#/Vol] 6.2 10*3/uL 1.8-7.7 [facility] Comment on above: Performed By: #### E SR, CBC, CMP #### [facility] [address] No Panel InformationOrdered By: Barby Chen on 12-02-2023 Estimated GFR (CKD-EPI) > 60.0 mL/Min [facility] Creatinine Clearance (Chem N/A [facility] Nucleated erythrocytes [Pres ence] in Blood by Automated countOrdered By: Barby Chen on 12-02-2023 Nucleated RBC Auto Ql (Bld) 0.1 /100{WBC} 0-0.5 [facility] Platelet mean volume [Entiti c volume] in Blood by Automated countOrdered By: Barby Chen on 12-02-2023 Platelet mean volume (Bld) [Entitic vol] 7.6 fL 6.3-10.7 [facility] Comment on above: Performed By: #### E SR, CBC, CMP #### [place] [address] [place] Platelets [#/volume] in Bloo d by Automated countOrdered By: Barby Chen on 12-02-2023 Platelets (Bld) [#/Vol] 301 10*3/uL 150-450 [facility] Comment on above: Performed By: #### E SR, CBC, CMP #### [facility] [address] [place] [address] [place] Potassium [Moles/volume] in Serum or PlasmaOrdered By: Barby Chen on 12-02-2023 Potassium [Moles/Vol] 4.4 mmol/L 3.5-5.1 [facility] Comment on above: Performed By: #### E SR, CBC, CMP #### [facility] [address] [place] [address] [place] Protein [Mass/volume] in Ser um or PlasmaOrdered By: Barby Chen on 12-02-2023 Protein [Mass/Vol] 7.3 g/dL 6.4-8.9 [facility] Comment on above: Performed By: #### E SR, CBC, CMP #### [address] Serum globulin measurement b y calculation (mass/volume)Ordered By: Barby Chen on 12-02-2023 Globulin (S) [Mass/Vol] 3.0 g/dL [facility] Comment on above: Performed By: #### E SR, CBC, CMP #### [address] Serum or plasma albumin/glob ulin mass ratioOrdered By: Barby Chen on 12-02-2023 Albumin/Globulin [Mass ratio] 1.4 {ratio} [facility] Comment on above: Performed By: #### E SR, CBC, CMP #### [address] Serum or plasma anion gap de terminationOrdered By: Barby Chen on 12-02-2023 Anion gap [Moles/Vol] 9.6 mmol/L 6.0-15.0 [facility] Comment on above: Performed By: #### E SR, CBC, CMP #### [place] [address] [place] Sodium [Moles/volume] in Ser um or PlasmaOrdered By: Barby Chen on 12-02-2023 Sodium [Moles/Vol] 131 mmol/L Low 136-145 [facility] Comment on above: Performed By: #### E SR, CBC, CMP #### [address] Urea nitrogen [Mass/volume] in Serum or PlasmaOrdered By: Barby Chen on 12-02-2023 Urea nitrogen [Mass/Vol] 9 mg/dL 7-25 [facility] Comment on above: Performed By: #### E SR, CBC, CMP #### [facility] [address] [place] [address] A1C with Estimated Average G yan 11-03-2023 Glucose [Mass/Vol] 123 mg/dL Normal [facility] Comment on above: Result Comment: PERF ORMED BY: [address] [place] [address] PATHOLOGIST DEVELOPMENTAL MATHEMATICS INSTRUCTOR HARVINDER GAGE M.D. Performed By: #### V ITD+D2+D3, THYROID PROF II #### [facility] , #### CMP, CBC #### [facility] [address] [place] [address] Alanine aminotransferase [En zymatic activity/volume] in Serum or PlasmaOrdered By: Anibal Chaudhary on 11-03-2023 ALT [Catalytic activity/Vol] 12 U/L 7-52 [facility] Comment on above: Performed By: #### V ITD+D2+D3, THYROID PROF II #### [facility] , #### CMP, CBC #### [facility] [address] [place] [address] [place] Albumin [Mass/volume] in Ser um or Plasma by Bromocresol green (BCG) dye binding methoOrdered By: Anibal Chaudhary on 11-03-2023 Albumin BCG dye [Mass/Vol] 4.2 g/dL 3.5-5.7 [facility] Alkaline phosphatase [Enzyma tic activity/volume] in Serum or PlasmaOrdered By: Anibal Chaudhary on 11-03-2023 ALP [Catalytic activity/Vol] 79 U/L 34-104 [facility] Comment on above: Performed By: #### V ITD+D2+D3, THYROID PROF II #### [facility] , #### CMP, CBC #### [facility] [address] [place] [address] [place] Aspartate aminotransferase [ Enzymatic activity/volume] in Serum or PlasmaOrdered By: Anibal Chaudhary on 11-03-2023 AST [Catalytic activity/Vol] 16 U/L 13-39 [facility] Comment on above: Performed By: #### V ITD+D2+D3, THYROID PROF II #### [facility] , #### CMP, CBC #### [facility] [address] Bilirubin.total [Mass/volume ] in Serum or PlasmaOrdered By: Anibal Chaudhary on 11-03-2023 Bilirubin [Mass/Vol] 0.5 mg/dL 0.3-1.0 [facility] Comment on above: Performed By: #### V ITD+D2+D3, THYROID PROF II #### [facility] , #### CMP, CBC #### [facility] [address] [place] [address] Calcium [Mass/volume] in Ser um or PlasmaOrdered By: Anibal Chaudhary on 11-03-2023 Calcium [Mass/Vol] 9.1 mg/dL 8.6-10.3 [facility] Comment on above: Performed By: #### V ITD+D2+D3, THYROID PROF II #### [facility] , #### CMP, CBC #### [address] Carbon dioxide, total [Moles /volume] in Serum or PlasmaOrdered By: Anibal Chaudhary on 11-03-2023 CO2 [Moles/Vol] 26.2 mmol/L 21.0-31.0 [facility] Comment on above: Performed By: #### V ITD+D2+D3, THYROID PROF II #### [facility] , #### CMP, CBC #### [facility] [address] [place] [address] [place] Chloride [Moles/volume] in S davi or PlasmaOrdered By: Anibal Chaudhary on 11-03-2023 Chloride [Moles/Vol] 101 mmol/L 98-107 [facility] Comment on above: Performed By: #### V ITD+D2+D3, THYROID PROF II #### [facility] , #### CMP, CBC #### [facility] [address] [place] [address] [place] Cholesterol [Mass/volume] in Serum or PlasmaOrdered By: Anibal Chaudhary on 11-03-2023 Cholesterol [Mass/Vol] 162 mg/dL 140-200 [facility] Comment on above: Chol less than 200 m g/dl low riskChol 201-239 mg/dl borderline riskChol 240 mg/dl and greater high risk Result Comment: Chol less than 200 mg/dl low risk Chol 201-239 mg/dl borderline risk Chol 240 mg/dl and greater high risk Performed By: #### V ITD+D2+D3, THYROID PROF II #### [facility] , #### CMP, CBC #### [facility] [address] [place] [address] [place] Cholesterol in LDL Calc [Mas s/Vol]Ordered By: Anibal Chaudhary on 11-03-2023 Cholesterol in LDL [Mass/Vol] 86 mg/dL 0-100 [facility] Comment on above: LDL ATP III CLASSIFI CATIONLDL less than 100 mg/dL OptimalLDL 100-129 mg/dL Near or above optimalLDL 130-159 mg/dL Borderline highLDL 160-189 mg/dL HighLDL greater than 189 mg/dL Very high Cholesterol in VLDL Calc [Ma ss/Vol]Ordered By: Anibal Chaudhary on 11-03-2023 Cholesterol in VLDL [Mass/Vol] 20 mg/dL [facility] Comprehensive Metabolic Pane kirit 11-03-2023 Albumin [Mass/Vol] 4.2 g/dL Normal 3.5-5.7 [facility] Comment on above: Performed By: #### V ITD+D2+D3, THYROID PROF II #### [facility] , #### CMP, CBC #### [facility] [address] [place] [address] [place] GFR/1.73 sq M.predicted MDRD (S/P/Bld) [Vol rate/Area] mL/min/{1.73_m2} Normal [facility] Comment on above: Performed By: #### V ITD+D2+D3, THYROID PROF II #### [facility] , #### CMP, CBC #### [facility] [address] [place] [address] [place] Creatinine [Mass/volume] in Serum or PlasmaOrdered By: Anibal Chaudhary on 11-03-2023 Creatinine [Mass/Vol] 0.94 mg/dL 0.60-1.20 [facility] Comment on above: Performed By: #### V ITD+D2+D3, THYROID PROF II #### [facility] , #### CMP, CBC #### [facility] [address] [place] [address] [place] Glucose [Mass/volume] in Ser um or PlasmaOrdered By: Anibal Chaudhary on 11-03-2023 Glucose [Mass/Vol] 130 mg/dL High 70-100 [facility] Comment on above: ADA recommended refe rence rangeRandom Glucose Reference Range is dependent on time and content of last meal. Glucose of more than 200 mg/dL in a nonstressed, ambulatory subject supports the diagnosis of Diabetes Mellitus. Result Comment: [place] om Glucose Reference Range is dependent on time and content of last meal. Glucose of more than 200 mg/dL in a nonstressed, ambulatory subject supports the diagnosis of Diabetes Mellitus. ADA recommended reference range Performed By: #### V ITD+D2+D3, THYROID PROF II #### [facility] , #### CMP, CBC #### [facility] [address] [place] [address] [place] Glucose mean value [Mass/vol ume] in Blood Estimated from glycated hemoglobinOrdered By: Anibal Chaudhary on 11-03-2023 Average glucose Estimated from glycated hemoglobin (Bld) [Mass/Vol] 123 mg/dL [facility] Hemoglobin A1c percentageOrd ered By: Anibal Chaudhary on 11-03-2023 HbA1c (Bld) [Mass fraction] 5.9 % High 4.3-5.6 [facility] Comment on above: Increased risk for d iabetes: 5.7 - 6.4diabetes: >6.4glycemic control for adults with diabetes: <7.0 Result Comment: Incr eased risk for diabetes: 5.7 - 6.4 diabetes: >6.4 glycemic control for adults with diabetes: <7.0 Performed By: #### V ITD+D2+D3, THYROID PROF II #### [facility] , #### CMP, CBC #### [address] Lipid Panelon 11-03-2023 LDL Cholesterol,Calculated 86 mg/dL Normal 0-100 [facility] Comment on above: Result Comment: LDL ATP III CLASSIFICATION LDL less than 100 mg/dL Optimal LDL 100-129 mg/dL Near or above optimal LDL 130-159 mg/dL Borderline high LDL 160-189 mg/dL High LDL greater than 189 mg/dL Very high Performed By: #### V ITD+D2+D3, THYROID PROF II #### [facility] , #### CMP, CBC #### [address] Triglyceride w/Reflex 101 mg/dL Normal 0-149 [facility] Comment on above: Result Comment: TRIG ATP III CLASSIFICATION TRIG less than 150 mg/dL Normal TRIG 150-199 mg/dL Borderline high TRIG 200-500 mg/dL High TRIG greater than 500 mg/dL Very high Standard traceable to the Center for Disease Conrtrol and Prevention (CDC) test method. Performed By: #### V ITD+D2+D3, THYROID PROF II #### [facility] , #### CMP, CBC #### [address] VLDL CHOLESTEROL 20 mg/dL Normal [facility] Comment on above: Performed By: #### V ITD+D2+D3, THYROID PROF II #### [facility] , #### CMP, CBC #### [address] No Panel InformationOrdered By: Anibal Chaudhary on 11-03-2023 Estimated GFR (CKD-EPI) > 60.0 mL/Min [facility] Creatinine Clearance (Chem N/A [facility] Potassium [Moles/volume] in Serum or PlasmaOrdered By: Anibal Chaudhary on 11-03-2023 Potassium [Moles/Vol] 4.5 mmol/L 3.5-5.1 [facility] Comment on above: Performed By: #### V ITD+D2+D3, THYROID PROF II #### [facility] , #### CMP, CBC #### [facility] [address] [place] [address] Protein [Mass/volume] in Ser um or PlasmaOrdered By: Anibal Chaudhary on 11-03-2023 Protein [Mass/Vol] 6.8 g/dL 6.4-8.9 [facility] Comment on above: Performed By: #### V ITD+D2+D3, THYROID PROF II #### [facility] , #### CMP, CBC #### [facility] [address] [place] [address] Serum globulin measurement b y calculation (mass/volume)Ordered By: Anibal Chaudhary on 11-03-2023 Globulin (S) [Mass/Vol] 2.6 g/dL [facility] Comment on above: Performed By: #### V ITD+D2+D3, THYROID PROF II #### [facility] , #### CMP, CBC #### [facility] [address] [place] [address] Serum or plasma albumin/glob ulin mass ratioOrdered By: Anibal Chaudhary on 11-03-2023 Albumin/Globulin [Mass ratio] 1.6 {ratio} [facility] Comment on above: Performed By: #### V ITD+D2+D3, THYROID PROF II #### [facility] , #### CMP, CBC #### [facility] [address] [place] [address] Serum or plasma anion gap de terminationOrdered By: Anibal Chaudhary on 11-03-2023 Anion gap [Moles/Vol] 10.3 mmol/L 6.0-15.0 [facility] Comment on above: Performed By: #### V ITD+D2+D3, THYROID PROF II #### [facility] , #### CMP, CBC #### [facility] [address] Serum or plasma high density lipoprotein (HDL) cholesterol measurementOrdered By: Anibal Chaudhary on 11-03-2023 Cholesterol in HDL [Mass/Vol] 56 mg/dL - [facility] Comment on above: HDL CHOL ATP-III CLA SSIFICATION Cardiovascular RiskHDL > or equal to 60 mg/dL LOWHDL < 40 mg/dL HIGH Result Comment: HDL CHOL ATP-III CLASSIFICATION Cardiovascular Risk HDL > or equal to 60 mg/dL LOW HDL < 40 mg/dL HIGH Performed By: #### V ITD+D2+D3, THYROID PROF II #### [facility] , #### CMP, CBC #### [facility] [address] [place] [address] Serum or plasma total choles terol/high density lipoprotein (HDL) cholesterol mass ratOrdered By: Anibal Chaudhary on 11-03-2023 Cholesterol.total/Chol esterol in HDL [Mass ratio] 2.9 {ratio} <5.0 [facility] Comment on above: Performed By: #### V ITD+D2+D3, THYROID PROF II #### [facility] , #### CMP, CBC #### [facility] [address] [place] [address] Sodium [Moles/volume] in Ser um or PlasmaOrdered By: Anibal Chaudhary on 11-03-2023 Sodium [Moles/Vol] 133 mmol/L Low 136-145 [facility] Comment on above: Performed By: #### V ITD+D2+D3, THYROID PROF II #### [facility] , #### CMP, CBC #### [facility] [address] [place] [address] Thyroid Stim Hormone w/Rflxo n 11-03-2023 Thyroid Stim Hormone w/Rflx 1.79 u[iU]/mL Normal 0.45-5.33 [facility] Comment on above: Result Comment: PERF ORMED BY: [place] [address] PATHOLOGIST DEVELOPMENTAL MATHEMATICS INSTRUCTOR HARVINDER GAGE M.D. Performed By: #### V ITD+D2+D3, THYROID PROF II #### [facility] , #### CMP, CBC #### [address] Thyrotropin [Units/volume] i n Serum or PlasmaOrdered By: Anibal Chaudhary on 11-03-2023 TSH Qn 1.79 m[IU]/L 0.45-5.33 [facility] Thyroxine (T4) free [Mass/vo lume] in Serum or PlasmaOrdered By: Anibal Chaudhary on 11-03-2023 Free T4 [Mass/Vol] 0.92 ng/dL 0.61-1.12 [facility] Comment on above: Performed By: #### V ITD+D2+D3, THYROID PROF II #### [facility] , #### CMP, CBC #### [address] Triglyceride [Mass/volume] i n Serum or PlasmaOrdered By: Anibal Chaudhary on 11-03-2023 Triglyceride [Mass/Vol] 101 mg/dL 0-149 [facility] Comment on above: TRIG ATP III CLASSIF ICATIONTRIG less than 150 mg/dL NormalTRIG 150-199 mg/dL Borderline highTRIG 200-500 mg/dL High TRIG greater than 500 mg/dL Very highStandard traceable to the Center for Disease Conrtrol and Prevention (CDC) test method. Urea nitrogen [Mass/volume] in Serum or PlasmaOrdered By: Anibal Chaudhary on 11-03-2023 Urea nitrogen [Mass/Vol] 20 mg/dL 7-25 [facility] Comment on above: Performed By: #### V ITD+D2+D3, THYROID PROF II #### [facility] , #### CMP, CBC #### [address] Basophils Auto (Bld) [#/Vol] on 09-07-2023 Basophils (Bld) [#/Vol] 0.1 10 3/uL 0.0-0.1 [facility] Basophils/100 WBC Auto (Bld) on 09-07-2023 Basophils/100 WBC (Bld) 1.0 % 0.2-2.0 [facility] Eosinophils/100 WBC Auto (Bl d)on 09-07-2023 Eosinophils/100 WBC (Bld) 0.0 % Low 0.9-7.0 [facility] Erythrocyte distribution wid th Auto (RBC) [Ratio]on 09-07-2023 Erythrocyte distribution width (RBC) [Ratio] 12.2 % 11.0-15.0 [facility] Estimated glomerular filtrat ion rate (GFR) non- Americanon 09-07-2023 GFR/1.73 sq M.predicted among non-blacks MDRD (S/P/Bld) [Vol rate/Area] mL/min/{1.73_m2} >=60 [facility] Globulin Calc (S) [Mass/Vol] on 09-07-2023 Globulin (S) [Mass/Vol] 3.6 g/dL [facility] Hematocrit Auto (Bld) [Volum e fraction]on 09-07-2023 Hematocrit (Bld) [Volume fraction] 38.5 % 36.0-48.0 [facility] Hemoglobin [Mass/volume] in Bloodon 09-07-2023 Hemoglobin (Bld) [Mass/Vol] 13.3 g/dL 12.0-16.0 [facility] Laboratory - Chemistry and C hemistry - challengeon 09-07-2023 Albumin [Mass/Vol] 3.6 g/dL 3.4-5.0 [facility] ALP [Catalytic activity/Vol] 84 U/L 46-116 [facility] ALT [Catalytic activity/Vol] 19 U/L 14-59 [facility] AST [Catalytic activity/Vol] 16 U/L 15-37 [facility] Bilirubin [Mass/Vol] 0.4 mg/dL 0.2-1.0 [facility] Calcium [Mass/Vol] 8.9 mg/dL 8.5-10.1 [facility] Chloride [Moles/Vol] 96 mmol/L Low 98-107 [facility] CO2 [Moles/Vol] 31.7 mmol/L 21.0-32.0 [facility] Creatinine [Mass/Vol] 0.91 mg/dL 0.55-1.02 [facility] GFR/1.73 sq M.predicted MDRD (S/P/Bld) [Vol rate/Area] mL/min/{1.73_m2} >=60 [facility] Glucose [Mass/Vol] 108 mg/dL High 74-106 [facility] Potassium [Moles/Vol] 4.2 mmol/L 3.5-5.1 [facility] Protein [Mass/Vol] 7.2 g/dL 6.4-8.2 [facility] Sodium [Moles/Vol] 130 mmol/L Low 136-145 [facility] Urea nitrogen [Mass/Vol] 15.0 mg/dL 7.0-18.0 [facility] Urea nitrogen/Creatinine [Mass ratio] 16.5 mg/mg [facility] Laboratory - Hematology and Cell countson 09-07-2023 Immature granulocytes/100 WBC (Bld) 0.3 % 0.0-0.5 [facility] Leukocytes [#/volume] correc chantelle for nucleated erythrocytes in Blood by Automated counon 09-07-2023 WBC corrected for nucl RBC Auto (Bld) [#/Vol] 6.3 10 3/uL 4.0-11.0 [facility] Lymphocytes Auto (Bld) [#/Vo l]on 09-07-2023 Lymphocytes (Bld) [#/Vol] 1.4 10 3/uL 1.2-3.8 [facility] Lymphocytes/100 WBC Auto (Bl d)on 09-07-2023 Lymphocytes/100 WBC (Bld) 22.4 % 20.5-60.0 [facility] MCH Auto (RBC) [Entitic mass ]on 09-07-2023 MCH (RBC) [Entitic mass] 30.9 pg 26.7-34.0 [facility] MCHC Auto (RBC) [Mass/Vol]on 09-07-2023 MCHC (RBC) [Mass/Vol] 34.5 g/dL 29.9-35.2 [facility] MCV Auto (RBC) [Entitic vol] on 09-07-2023 MCV (RBC) [Entitic vol] 89.5 fL 81.0-99.0 [facility] Monocytes Auto (Bld) [#/Vol] on 09-07-2023 Monocytes (Bld) [#/Vol] 0.4 10 3/uL 0.3-0.8 [facility] Monocytes/100 WBC Auto (Bld) on 09-07-2023 Monocytes/100 WBC (Bld) 6.6 % 1.7-12.0 [facility] Neutrophils Auto (Bld) [#/Vo l]on 09-07-2023 Neutrophils (Bld) [#/Vol] 4.4 10 3/uL 1.4-6.5 [facility] Neutrophils/100 WBC Auto (Bl d)on 09-07-2023 Neutrophils/100 WBC (Bld) 69.7 % 43.0-75.0 [facility] No Panel Informationon 09-06 Eosinophils # (Auto) 0.0 10 3/uL 0.0-0.7 [facility] Immature Granulocyte # (Auto) 0.02 10 3/uL 0.00-0.03 [facility] Platelet mean volume Auto (B ld) [Entitic vol]on 09-07-2023 Platelet mean volume (Bld) [Entitic vol] 8.6 fL Low 9.5-13.5 [facility] Platelets Auto (Bld) [#/Vol] on 09-07-2023 Platelets (Bld) [#/Vol] 233 10 3/uL 150-450 [facility] RBC Auto (Bld) [#/Vol]on RBC (Bld) [#/Vol] 4.30 10 6/uL 4.20-5.40 [facility] Serum or plasma albumin/glob ulin mass ratioon 09-07-2023 Albumin/Globulin [Mass ratio] 1.0 {ratio} [facility] Serum or plasma anion gap de terminationon 09-07-2023 Anion gap [Moles/Vol] 6.5 mmol/L [facility] Basophils Auto (Bld) [#/Vol] on 08-19-2023 Basophils (Bld) [#/Vol] 0.1 10 3/uL 0.0-0.1 [facility] Basophils/100 WBC Auto (Bld) on 08-19-2023 Basophils/100 WBC (Bld) 1.3 % 0.2-2.0 [facility] Eosinophils/100 WBC Auto (Bl d)on 08-19-2023 Eosinophils/100 WBC (Bld) 0.0 % Low 0.9-7.0 [facility] Erythrocyte distribution wid th Auto (RBC) [Ratio]on 08-19-2023 Erythrocyte distribution width (RBC) [Ratio] 12.1 % 11.0-15.0 [facility] Estimated glomerular filtrat ion rate (GFR) non- Americanon 08-19-2023 GFR/1.73 sq M.predicted among non-blacks MDRD (S/P/Bld) [Vol rate/Area] mL/min/{1.73_m2} >=60 [facility] Hematocrit Auto (Bld) [Volum e fraction]on 08-19-2023 Hematocrit (Bld) [Volume fraction] 40.6 % 36.0-48.0 [facility] Hemoglobin [Mass/volume] in Bloodon 08-19-2023 Hemoglobin (Bld) [Mass/Vol] 13.8 g/dL 12.0-16.0 [facility] - Chemistry and C hemistry - challengeon 08-19-2023 Calcium [Mass/Vol] 8.8 mg/dL 8.5-10.1 [facility] Chloride [Moles/Vol] 96 mmol/L Low 98-107 [facility] CO2 [Moles/Vol] 30.6 mmol/L 21.0-32.0 [facility] Creatinine [Mass/Vol] 0.89 mg/dL 0.55-1.02 [facility] Free T4 [Mass/Vol] 0.87 ng/dL 0.76-1.46 [facility] GFR/1.73 sq M.predicted MDRD (S/P/Bld) [Vol rate/Area] mL/min/{1.73_m2} >=60 [facility] Glucose [Mass/Vol] 116 mg/dL High 74-106 [facility] Natriuretic peptide B (Bld) [Mass/Vol] 490.0 pg/mL <=900.0 [facility] Potassium [Moles/Vol] 4.4 mmol/L 3.5-5.1 [facility] Sodium [Moles/Vol] 133 mmol/L Low 136-145 [facility] TSH Qn 4.910 m[IU]/L High 0.358-3.740 [facility] Urea nitrogen [Mass/Vol] 20.0 mg/dL High 7.0-18.0 [facility] Urea nitrogen/Creatinine [Mass ratio] 22.5 mg/mg [facility] Bilirubin Ql (U) Negative NEGATIVE [facility] Glucose (U) [Mass/Vol] Negative NEGATIVE [facility] Ketones Ql (U) Negative NEGATIVE [facility] pH (U) 7.0 [pH] 5.0-9.0 [facility] Specific gravity (U) [Rel density] 1.010 1.005-1.025 [facility] Urobilinogen Qn (U) 0.2 {Lenny'U}/dL 0.2-1.0 [facility] Laboratory - Hematology and Cell countson 08-19-2023 Immature granulocytes/100 WBC (Bld) 0.5 % 0.0-0.5 [facility] - Specimen inform ationon 08-19-2023 Appearance (U) CLEAR CLEAR [facility] Color (U) LT. YELLOW YELLOW [facility] - Urinalysison Leukocyte esterase Test strip Ql (U) Negative NEGATIVE [facility] Nitrite Ql (U) Negative NEGATIVE [facility] Protein Ql (U) Negative NEG/TRACE [facility] Leukocytes [#/volume] correc chantelle for nucleated erythrocytes in Blood by Automated counon 08-19-2023 WBC corrected for nucl RBC Auto (Bld) [#/Vol] 7.5 10 3/uL 4.0-11.0 [facility] Lymphocytes Auto (Bld) [#/Vo l]on 08-19-2023 Lymphocytes (Bld) [#/Vol] 1.6 10 3/uL 1.2-3.8 [facility] Lymphocytes/100 WBC Auto (Bl d)on 08-19-2023 Lymphocytes/100 WBC (Bld) 21.2 % 20.5-60.0 [facility] MCH Auto (RBC) [Entitic mass ]on 08-19-2023 MCH (RBC) [Entitic mass] 31.0 pg 26.7-34.0 [facility] MCHC Auto (RBC) [Mass/Vol]on 08-19-2023 MCHC (RBC) [Mass/Vol] 34.0 g/dL 29.9-35.2 [facility] MCV Auto (RBC) [Entitic vol] on 08-19-2023 MCV (RBC) [Entitic vol] 91.2 fL 81.0-99.0 [facility] Monocytes Auto (Bld) [#/Vol] on 08-19-2023 Monocytes (Bld) [#/Vol] 0.5 10 3/uL 0.3-0.8 [facility] Monocytes/100 WBC Auto (Bld) on 08-19-2023 Monocytes/100 WBC (Bld) 6.4 % 1.7-12.0 [facility] Neutrophils Auto (Bld) [#/Vo l]on 08-19-2023 Neutrophils (Bld) [#/Vol] 5.3 10 3/uL 1.4-6.5 [facility] Neutrophils/100 WBC Auto (Bl d)on 08-19-2023 Neutrophils/100 WBC (Bld) 70.6 % 43.0-75.0 [facility] No Panel Informationon 08-18 Eosinophils # (Auto) 0.0 10 3/uL 0.0-0.7 [facility] Immature Granulocyte # (Auto) 0.04 10 3/uL High 0.00-0.03 [facility] Urine Occult Blood TRACE-L NEGATIVE [facility] Platelet mean volume Auto (B ld) [Entitic vol]on 08-19-2023 Platelet mean volume (Bld) [Entitic vol] 9.0 fL Low 9.5-13.5 [facility] Platelets Auto (Bld) [#/Vol] on 08-19-2023 Platelets (Bld) [#/Vol] 259 10 3/uL 150-450 [facility] RBC Auto (Bld) [#/Vol]on RBC (Bld) [#/Vol] 4.45 10 6/uL 4.20-5.40 [facility] Serum or plasma anion gap de terminationon 08-19-2023 Anion gap [Moles/Vol] 10.8 mmol/L [facility] Alanine aminotransferase [En zymatic activity/volume] in Serum or PlasmaOrdered By: Pam Wagoner on 07-08-2023 ALT [Catalytic activity/Vol] 13 U/L Normal 7-52 [facility] Comment on above: Performed By: #### V ITD+D2+D3, THYROID PROF II #### [facility] , #### CMP, CBC #### [facility] [address] [place] [address] Albumin [Mass/volume] in Ser um or Plasma by Bromocresol green (BCG) dye binding methoOrdered By: Pam Wagoner on 07-08-2023 Albumin BCG dye [Mass/Vol] 4.7 g/dL 3.5-5.7 [facility] Alkaline phosphatase [Enzyma tic activity/volume] in Serum or PlasmaOrdered By: Pam Wagoner on 07-08-2023 ALP [Catalytic activity/Vol] 72 U/L Normal 34-104 [facility] Comment on above: Result Comment: PERF ORMED BY: [place] [address] PATHOLOGIST DEVELOPMENTAL MATHEMATICS INSTRUCTOR HARVINDER GAGE M.D. Performed By: #### V ITD+D2+D3, THYROID PROF II #### [facility] , #### CMP, CBC #### [facility] [address] [place] [address] [place] Aspartate aminotransferase [ Enzymatic activity/volume] in Serum or PlasmaOrdered By: Pam Wagoner on 07-08-2023 AST [Catalytic activity/Vol] 18 U/L Normal 13-39 [facility] Comment on above: Performed By: #### V ITD+D2+D3, THYROID PROF II #### [facility] , #### CMP, CBC #### [address] Automated basophil %Ordered By: Pam Wagoner on 07-08-2023 Basophils/100 WBC (Bld) 1.2 % Normal . [facility] Comment on above: Performed By: #### V ITD+D2+D3, THYROID PROF II #### [facility] , #### CMP, CBC #### [address] Automated basophil countOrde red By: Pam Wagoner on 07-08-2023 Basophils (Bld) [#/Vol] 0.1 10*3/uL Normal 0.0-0.2 [facility] Comment on above: Result Comment: PERF ORMED BY: [place] [address] PATHOLOGIST DEVELOPMENTAL MATHEMATICS INSTRUCTOR AHRVINDER GAGE M.D. Performed By: #### V ITD+D2+D3, THYROID PROF II #### [facility] , #### CMP, CBC #### [address] Automated blood monocyte cou ntOrdered By: Pma Wagoner on 07-08-2023 Monocytes (Bld) [#/Vol] 0.5 10*3/uL Normal 0.0-0.8 [facility] Comment on above: Performed By: #### V ITD+D2+D3, THYROID PROF II #### [facility] , #### CMP, CBC #### [address] Automated eosinophil %Ordere d By: Pam Wagoner on 07-08-2023 Eosinophils/100 WBC (Bld) 0.0 % Normal . [facility] Comment on above: Performed By: #### V ITD+D2+D3, THYROID PROF II #### [facility] , #### CMP, CBC #### [address] [address] [place] Automated eosinophil countOr dered By: Pam Wagoner on 07-08-2023 Eosinophils (Bld) [#/Vol] 0.0 10*3/uL Normal 0.0-0.45 [facility] Comment on above: Performed By: #### V ITD+D2+D3, THYROID PROF II #### [facility] , #### CMP, CBC #### [facility] [address] [place] [address] Automated monocyte %Ordered By: Pam Wagoner on 07-08-2023 Monocytes/100 WBC (Bld) 7.8 % Normal . [facility] Comment on above: Performed By: #### V ITD+D2+D3, THYROID PROF II #### [facility] , #### CMP, CBC #### [address] Automated neutrophil %Ordere d By: Pam Wagoner on 07-08-2023 Neutrophils/100 WBC (Bld) 65.2 % Normal . [facility] Comment on above: Performed By: #### V ITD+D2+D3, THYROID PROF II #### [facility] , #### CMP, CBC #### [address] Bilirubin.total [Mass/volume ] in Serum or PlasmaOrdered By: Pam Wagoner on 07-08-2023 Bilirubin [Mass/Vol] 0.3 mg/dL Normal 0.3-1.0 [facility] Comment on above: Performed By: #### V ITD+D2+D3, THYROID PROF II #### [facility] , #### CMP, CBC #### [facility] [address] [place] [address] Calcium [Mass/volume] in Ser um or PlasmaOrdered By: Pam Wagoner on 07-08-2023 Calcium [Mass/Vol] 9.9 mg/dL Normal 8.6-10.3 [facility] Comment on above: Performed By: #### V ITD+D2+D3, THYROID PROF II #### [facility] , #### CMP, CBC #### [facility] [address] [place] [address] Carbon dioxide, total [Moles /volume] in Serum or PlasmaOrdered By: Pam Wagoner on 07-08-2023 CO2 [Moles/Vol] 31.5 mmol/L High 21.0-31.0 [facility] Comment on above: Performed By: #### V ITD+D2+D3, THYROID PROF II #### [facility] , #### CMP, CBC #### [facility] [address] [place] [address] Chloride [Moles/volume] in S davi or PlasmaOrdered By: Pam Wagoner on 07-08-2023 Chloride [Moles/Vol] 100 mmol/L Normal 98-107 [facility] Comment on above: Performed By: #### V ITD+D2+D3, THYROID PROF II #### [facility] , #### CMP, CBC #### [address] Complete Blood Count Auto Di ffon 07-08-2023 Mean Corpuscular HGB Conc 34.0 g/dL Normal 32.0-35.0 [facility] Comment on above: Performed By: #### V ITD+D2+D3, THYROID PROF II #### [facility] , #### CMP, CBC #### [facility] [address] [place] [address] NRBC% 0.1 /100{WBC} Normal 0-0.5 [facility] Comment on above: Performed By: #### V ITD+D2+D3, THYROID PROF II #### [facility] , #### CMP, CBC #### [facility] [address] [place] [address] Comprehensive Metabolic Pane kirit 07-08-2023 Albumin [Mass/Vol] 4.7 g/dL Normal 3.5-5.7 [facility] Comment on above: Performed By: #### V ITD+D2+D3, THYROID PROF II #### [facility] , #### CMP, CBC #### [facility] [address] [place] [address] GFR/1.73 sq M.predicted MDRD (S/P/Bld) [Vol rate/Area] mL/min/{1.73_m2} Normal [facility] Comment on above: Performed By: #### V ITD+D2+D3, THYROID PROF II #### [facility] , #### CMP, CBC #### [facility] [address] [place] [address] Creatinine [Mass/volume] in Serum or PlasmaOrdered By: Pam Wagoner on 07-08-2023 Creatinine [Mass/Vol] 0.96 mg/dL Normal 0.60-1.20 [facility] Comment on above: Performed By: #### V ITD+D2+D3, THYROID PROF II #### [facility] , #### CMP, CBC #### [facility] [address] [place] [address] Erythrocyte distribution wid th [Ratio] by Automated countOrdered By: Pam Wagoner on 07-08-2023 Erythrocyte distribution width (RBC) [Ratio] 12.9 % Normal 11.9-15.3 [facility] Comment on above: Performed By: #### V ITD+D2+D3, THYROID PROF II #### [facility] , #### CMP, CBC #### [facility] [address] [place] [address] Erythrocytes [#/volume] in B lood by Automated countOrdered By: Pam Wagoner on 07-08-2023 RBC (Bld) [#/Vol] 4.72 10*6/uL Normal 3.60-5.00 [facility] Comment on above: Performed By: #### V ITD+D2+D3, THYROID PROF II #### [facility] , #### CMP, CBC #### [facility] [address] [place] [address] Free thyroxine indexOrdered By: Pam Wagoner on 07-08-2023 Free T4 index Calc [Mass/Vol] 1.8 1.2-4.9 [facility] Glucose [Mass/volume] in Ser um or PlasmaOrdered By: Pam Wagoner on 07-08-2023 Glucose [Mass/Vol] 109 mg/dL High 70-100 [facility] Comment on above: ADA recommended refe rence rangeRandom Glucose Reference Range is dependent on time and content of last meal. Glucose of more than 200 mg/dL in a nonstressed, ambulatory subject supports the diagnosis of Diabetes Mellitus. Result Comment: [place] Glucose Reference Range is dependent on time and content of last meal. Glucose of more than 200 mg/dL in a nonstressed, ambulatory subject supports the diagnosis of Diabetes Mellitus. ADA recommended reference range Performed By: #### V ITD+D2+D3, THYROID PROF II #### [facility] , #### CMP, CBC #### [facility] [address] [place] [address] Hematocrit [Volume Fraction] of Blood by Automated countOrdered By: Pam Wagoner on 07-08-2023 Hematocrit (Bld) [Volume fraction] 43.4 % Normal 34.0-46.4 [facility] Comment on above: Performed By: #### V ITD+D2+D3, THYROID PROF II #### [facility] , #### CMP, CBC #### [facility] [address] [place] [address] Hemoglobin [Mass/volume] in BloodOrdered By: Pam Wagoner on 07-08-2023 Hemoglobin (Bld) [Mass/Vol] 14.7 g/dL Normal 11.8-15.4 [facility] Comment on above: Performed By: #### V ITD+D2+D3, THYROID PROF II #### [facility] , #### CMP, CBC #### [facility] [address] [place] [address] [place] Leukocytes [#/volume] correc chantelle for nucleated erythrocytes in Blood by Automated counOrdered By: Pam Wagoner on 07-08-2023 WBC corrected for nucl RBC Auto (Bld) [#/Vol] 6.7 10*3/uL 3.8-11.6 [facility] Leukocytes [#/volume] in Blo od by Automated countOrdered By: Pam Wagoner on 07-08-2023 WBC (Bld) [#/Vol] 6.7 10*3/uL Normal 3.8-11.6 [facility] Comment on above: Performed By: #### V ITD+D2+D3, THYROID PROF II #### [facility] , #### CMP, CBC #### [facility] [address] [place] [address] [place] Lymphocytes [#/volume] in Bl ood by Automated countOrdered By: Pam Wagoner on 07-08-2023 Lymphocytes (Bld) [#/Vol] 1.7 10*3/uL Normal 1.00-4.8 [facility] Comment on above: Performed By: #### V ITD+D2+D3, THYROID PROF II #### [facility] , #### CMP, CBC #### [facility] [address] [place] [address] [place] Lymphocytes/100 leukocytes i n Blood by Automated countOrdered By: Pam Wagoner on 07-08-2023 Lymphocytes/100 WBC (Bld) 25.8 % Normal . [facility] Comment on above: Performed By: #### V ITD+D2+D3, THYROID PROF II #### [facility] , #### CMP, CBC #### [facility] [address] [place] [address] [place] MCH [Entitic mass] by Automa chantelle countOrdered By: Pam Wagoner on 07-08-2023 MCH (RBC) [Entitic mass] 31.2 pg Normal 24.7-34.3 [facility] Comment on above: Performed By: #### V ITD+D2+D3, THYROID PROF II #### [facility] , #### CMP, CBC #### [facility] [address] MCHC Auto (RBC) [Mass/Vol]Or dered By: Pam Wagoner on 07-08-2023 MCHC (RBC) [Mass/Vol] 34.0 g/dL 32.0-35.0 [facility] MCV [Entitic volume] by Auto mated countOrdered By: Pam Wagoner on 07-08-2023 MCV (RBC) [Entitic vol] 92.0 fL Normal 80-100 [facility] Comment on above: Performed By: #### V ITD+D2+D3, THYROID PROF II #### [facility] , #### CMP, CBC #### [facility] [address] [place] [address] Neutrophils [#/volume] in Bl ood by Automated countOrdered By: Pam Wagoner on 07-08-2023 Neutrophils (Bld) [#/Vol] 4.3 10*3/uL Normal 1.8-7.7 [facility] Comment on above: Performed By: #### V ITD+D2+D3, THYROID PROF II #### [facility] , #### CMP, CBC #### [facility] [address] [place] [address] No Panel InformationOrdered By: Pam Wagoner on 07-08-2023 Estimated GFR (CKD-EPI) > 60.0 mL/Min [facility] Free Thyroxine (T4) Direct 7.5 ug/dL 4.5-12.0 [facility] Creatinine Clearance (Chem N/A [facility] Nucleated erythrocytes [Pres ence] in Blood by Automated countOrdered By: Pam Wagoner on 07-08-2023 Nucleated RBC Auto Ql (Bld) 0.1 /100{WBC} 0-0.5 [facility] Platelet mean volume [Entiti c volume] in Blood by Automated countOrdered By: Pam Wagoner on 07-08-2023 Platelet mean volume (Bld) [Entitic vol] 7.8 fL Normal 6.3-10.7 [facility] Comment on above: Performed By: #### V ITD+D2+D3, THYROID PROF II #### [facility] , #### CMP, CBC #### [facility] [address] [place] [address] [place] Platelets [#/volume] in Bloo d by Automated countOrdered By: Pam Wagoner on 07-08-2023 Platelets (Bld) [#/Vol] 278 10*3/uL Normal 150-450 [facility] Comment on above: Performed By: #### V ITD+D2+D3, THYROID PROF II #### [facility] , #### CMP, CBC #### [address] Potassium [Moles/volume] in Serum or PlasmaOrdered By: Pam Wagoner on 07-08-2023 Potassium [Moles/Vol] 4.7 mmol/L Normal 3.5-5.1 [facility] Comment on above: Performed By: #### V ITD+D2+D3, THYROID PROF II #### [facility] , #### CMP, CBC #### [address] Protein [Mass/volume] in Ser um or PlasmaOrdered By: Pam Wagoner on 07-08-2023 Protein [Mass/Vol] 7.5 g/dL Normal 6.4-8.9 [facility] Comment on above: Performed By: #### V ITD+D2+D3, THYROID PROF II #### [facility] , #### CMP, CBC #### [address] Serum globulin measurement b y calculation (mass/volume)Ordered By: Pam Wagoner on 07-08-2023 Globulin (S) [Mass/Vol] 2.8 g/dL Normal [facility] Comment on above: Performed By: #### V ITD+D2+D3, THYROID PROF II #### [facility] , #### CMP, CBC #### [facility] [address] [place] [address] Serum or plasma 25-hydroxyca lciferol measurement (mass/volume)Ordered By: Pam Wagoner on 07-08-2023 25-hydroxyvitamin D2 [Mass/Vol] <1.0 ng/mL . [facility] Comment on above: This test was develo ped and its performance characteristicsdetermined by [facility]. It has not been cleared or approvedby the Food and Drug Administration. Serum or plasma 25-hydroxyvi tamin D measurement (mass/volume)Ordered By: Pam Wagoner on 07-08-2023 25-hydroxyvitamin D [Mass/Vol] 6.8 ng/mL . [facility] Comment on above: Reference Range:All Ages: Target levels 30 - 100 Serum or plasma albumin/glob ulin mass ratioOrdered By: Pam Wagoner on 07-08-2023 Albumin/Globulin [Mass ratio] 1.7 {ratio} Normal [facility] Comment on above: Performed By: #### V ITD+D2+D3, THYROID PROF II #### [facility] , #### CMP, CBC #### [facility] [address] [place] [address] Serum or plasma anion gap de terminationOrdered By: Pam Wagoner on 07-08-2023 Anion gap [Moles/Vol] 9.2 mmol/L Normal 6.0-15.0 [facility] Comment on above: Performed By: #### V ITD+D2+D3, THYROID PROF II #### [facility] , #### CMP, CBC #### [facility] [address] [place] [address] Serum or plasma calcidiol me asurement (mass/volume)Ordered By: Pam Wagoner on 07-08-2023 25-hydroxyvitamin D3 [Mass/Vol] 6.8 ng/mL . [facility] Comment on above: This test was develo ped and its performance characteristicsdetermined by [facility]. It has not been cleared or approvedby the Food and Drug Administration.Performed at: [facility] [employer] [address] [place] [address] [id number] Director: Santos Chahal MD, Phone: [phone] Serum or plasma thyroid stim ulating hormone (TSH) measurement by high sensitivity metOrdered By: Pam Wagoner on 07-08-2023 TSH Qn 5.980 m[IU]/L High 0.450-4.500 [facility] Comment on above: Result Comment: PERF ORMED BY: [place] [address] PATHOLOGIST DEVELOPMENTAL MATHEMATICS INSTRUCTOR HARVINDER GAGE M.D. Performed By: #### V ITD+D2+D3, THYROID PROF II #### [facility] , #### CMP, CBC #### [facility] [address] [place] [address] Sodium [Moles/volume] in Ser um or PlasmaOrdered By: Pam Wagoner on 07-08-2023 Sodium [Moles/Vol] 136 mmol/L Normal 136-145 [facility] Comment on above: Performed By: #### V ITD+D2+D3, THYROID PROF II #### [facility] , #### CMP, CBC #### [facility] [address] [place] [address] T3 uptakeOrdered By: Pam Wagoner on 07-08-2023 T3RU 24 % 24-39 [facility] Thyroid Profile IIon 024 Free Thyroxine Index 1.8 Normal 1.2-4.9 [facility] Comment on above: Performed By: #### V ITD+D2+D3, THYROID PROF II #### [facility] , #### CMP, CBC #### [facility] [address] [place] [address] Lab Pam[place] Triiodothyronine,(T3) 124 ng/dL Normal 71-180 [facility] Comment on above: Result Comment: Perf ormed at: [facility] [address] [place], [place] [id number] Revenue Cycle Consultant: Spencer Martinez PhD, Phone: [phone] Performed By: #### V ITD+D2+D3, THYROID PROF II #### [facility] , #### CMP, CBC #### [facility] [address] [place] [address] T4 [Mass/Vol] 7.5 ug/dL Normal 4.5-12.0 [facility] Comment on above: Performed By: #### V ITD+D2+D3, THYROID PROF II #### [facility] , #### CMP, CBC #### [facility] [address] [place] [address] Triiodothryronine (T3) Uptake 24 % Normal 24-39 [facility] Comment on above: Performed By: #### V ITD+D2+D3, THYROID PROF II #### [facility] , #### CMP, CBC #### [address] Triiodothyronine (T3) [Mass/ volume] in Serum or PlasmaOrdered By: Pam Wagoner on 07-08-2023 T3 [Mass/Vol] 124 ng/dL 71-180 [facility] Comment on above: Performed at: [address] Director: Spencer Martinez PhD, Phone: [phone] Urea nitrogen [Mass/volume] in Serum or PlasmaOrdered By: Pam Wagoner on 07-08-2023 Urea nitrogen [Mass/Vol] 26 mg/dL High 7-25 [facility] Comment on above: Performed By: #### V ITD+D2+D3, THYROID PROF II #### [facility] , #### CMP, CBC #### [facility] [address] [place] [address] [place] Vitamin D 25 Hydroxy,Tot+D2+ D3on 07-08-2023 Lab Pam[place] Vitamin D 25 [place] 6.8 ng/mL Low . [facility] Comment on above: Result Comment: [place] Range: All Ages: Target levels 30 - 100 Performed By: #### V ITD+D2+D3, THYROID PROF II #### [facility] , #### CMP, CBC #### [address] Vitamin D-2 <1.0 Normal . [facility] Comment on above: Result Comment: This test was developed and its performance characteristics determined by [facility]. It has not been cleared or approved by the Food and Drug Administration. Performed By: #### V ITD+D2+D3, THYROID PROF II #### [facility] , #### CMP, CBC #### [address] Vitamin D-3 6.8 ng/mL Normal . [facility] Comment on above: Result Comment: This test was developed and its performance characteristics determined by [facility]. It has not been cleared or approved by the Food and Drug Administration. Performed at: [employer] [address] [place] [id number] Revenue Cycle Consultant: Santos Chahal MD, Phone: [phone] PERFORMED BY: [place] [address] PATHOLOGIST DEVELOPMENTAL MATHEMATICS INSTRUCTOR HARVINDER GAGE M.D. Performed By: #### V ITD+D2+D3, THYROID PROF II #### [facility] , #### CMP, CBC #### [address] Progress Note - Nutritionon 06-04-2023 Progress Note - Nutrition Pt is here today for an initial DM MNT appt. Pt has had diabetes for two years. 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 Referral of Care: [...] f/u fo (more content not included)... Normal [facility] BD Bone Density DEXAon 05-29 BD Bone [...] low BMD [12, 13]. Ordering Provider: Yany Amezcua FINAL REPORT Dictated: 05/30/2023 10:21 am Anam Ruff MD, V. Signed (Electronic Signature): 05/30/2023 10:21 am Signed by: Anam Ruff MD, V. Transcribed by: EU[place] Technologist: SENIA [facility] Consent for Treatmenton 0 Consent for Treatment [id number]#1.00TIFF [facility] Consent for Treatment [id number]#1.00TIFF [facility] Physician Orderon 05-20-2023 Physician Order [id number]#1.00TIFF [facility] Physician Referralon 024 Physician Referral [id number]#1.00TIFF [facility] community outreach caroti don 02-28-2023 community outreach carotid [facility] [address] Ultrasound Report Signed Patient: Ruma Carlton MR#: [id number] : 1960 Acct:[id number] Age/Sex: 62 / F ADM Date: 02/25/23 Loc: Room: Type: DEP REF Attending Dr: Colin Community Ordering Provider: COLIN SOTO Date of Service: 02/25/23 [place]/[facility] outreach carotid: SCREENING Copies to: [facility] CAROTID DUPLEX INDICATION: Community outreach screening program. [...] Carmelita Holman MD02/28/2023 10:51 AM Dictation Location: [place] [address] Tech: Ruby Hutchison Transcribed By: CHRISTIAN 02/28/23 1051 Dictated By: Carmelita [place] MD 02/28/23 1050 Signed By: 02/28/23 1051 Normal [facility] Basic Metabolic Panelon 10-0 Creatinine Clr Calc Pharmacy 103.69 Normal [facility] Comment on above: Result Comment: PERF ORMED BY: [place] [address] PATHOLOGIST DEVELOPMENTAL MATHEMATICS INSTRUCTOR HARVINDER GAGE M.D. Performed By: #### B MP #### [facility] [address] [place] [address] GFR/1.73 sq M.predicted MDRD (S/P/Bld) [Vol rate/Area] mL/min/{1.73_m2} Normal [facility] Comment on above: Performed By: #### B MP #### [facility] [address] [place] [address] Calcium [Mass/volume] in Ser um or PlasmaOrdered By: Froilan Brown on 12-24-2022 Calcium [Mass/Vol] 8.8 mg/dL Normal 8.6-10.3 [facility] Comment on above: Performed By: #### B MP #### [facility] [address] Carbon dioxide, total [Moles /volume] in Serum or PlasmaOrdered By: Froilan Brown on 12-24-2022 CO2 [Moles/Vol] 25.8 mmol/L Normal 21.0-31.0 [facility] Comment on above: Performed By: #### B MP #### [facility] [address] [place] [address] [place] Chloride [Moles/volume] in S davi or PlasmaOrdered By: Froilan Brown on 12-24-2022 Chloride [Moles/Vol] 104 mmol/L Normal 98-107 [facility] Comment on above: Performed By: #### B MP #### [address] Creatinine [Mass/volume] in Serum or PlasmaOrdered By: Froilan Brown on 12-24-2022 Creatinine [Mass/Vol] 0.61 mg/dL Normal 0.60-1.20 [facility] Comment on above: Performed By: #### B MP #### [address] ECG 12 lead ECGon 12-24-2022 ECG 12 lead ECG [facility] [place] [address] [place] [address] Electrocardiograph Report Signed Patient: Ruma Carlton MR#: [id number] : 1960 Acct:[id number] Age/Sex: 62 / F ADM Date: 12/24/22 Loc: Room: [address] [place] [address] Type: DIS INOo Attending Dr: Petr Kowalski [...] evident in Lateral leads Confirmed by REGINA MOLINA MD, FACC () on 12/25/2022 10:57:22 AM Referred By: Electronically Signed By:REGINA MOLINA MD, FACC Transcribed By: MUS Signed By Sukhi Molina MD 12/25/22 105 Normal [facility] ECG 12 lead ECG [facility] [place] [address] [place] [address] Electrocardiograph Report Signed Patient: Ruma Carlton MR#: [id number] : 1960 Acct:[id number] Age/Sex: 62 / F ADM Date: 12/24/22 Loc: Room: [address] [place] [address] Type: DIS INOo Attending Dr: Petr Kowalski [...] infarct is now present Confirmed by REGINA MOLINA MD, FACC () on 12/25/2022 10:57:18 AM Referred By: Electronically Signed By:REGINA MOLINA MD, FACC Transcribed By: MUS Signed By Sukhi Molina MD 12/25/221056 Normal [facility] Glucose [Mass/volume] in Ser um or PlasmaOrdered By: Froilan Brown on 12-24-2022 Glucose [Mass/Vol] 113 mg/dL High 70-100 [facility] Comment on above: ADA recommended refe rence rangeRandom Glucose Reference Range is dependent on time and content of last meal. Glucose of more than 200 mg/dL in a nonstressed, ambulatory subject supports the diagnosis of Diabetes Mellitus. Result Comment: [place] Glucose Reference Range is dependent on time and content of last meal. Glucose of more than 200 mg/dL in a nonstressed, ambulatory subject supports the diagnosis of Diabetes Mellitus. ADA recommended reference range Performed By: #### B MP #### [address] No Panel InformationOrdered By: Froilan Brown on 12-24-2022 Estimated GFR (CKD-EPI) > 60.0 mL/Min [facility] Creatinine Clearance (Chem 103.69 [facility] Potassium [Moles/volume] in Serum or PlasmaOrdered By: Froilan Brown on 12-24-2022 Potassium [Moles/Vol] 4.3 mmol/L Normal 3.5-5.1 [facility] Comment on above: Performed By: #### B MP #### [address] Serum or plasma anion gap de terminationOrdered By: Froilan Brown on 12-24-2022 Anion gap [Moles/Vol] 9.5 mmol/L Normal 6.0-15.0 [facility] Comment on above: Performed By: #### B MP #### [address] Sodium [Moles/volume] in Ser um or PlasmaOrdered By: Froilan Brown on 12-24-2022 Sodium [Moles/Vol] 135 mmol/L Low 136-145 [facility] Comment on above: Performed By: #### B MP #### [address] Troponin I High Sensitivityo n 12-24-2022 Troponin I High Sensitivity 7.7 pg/mL Normal 0.0-15.0 [facility] Comment on above: Result Comment: PERF ORMED BY: [place] [address] PATHOLOGIST DEVELOPMENTAL MATHEMATICS INSTRUCTOR HARVINDER GAGE M.D. Performed By: #### V ITD+D2+D3, THYROID PROF II #### [facility] , #### CMP, CBC #### [address] Troponin I.cardiac [Mass/vol ume] in Serum or Plasma by Detection limit <= 0.01 ng/Ordered By: Froilan Brown on 12-24-2022 Troponin I.cardiac DL <= 0.01 ng/mL [Mass/Vol] 7.7 pg/mL 0.0-15.0 [facility] [facility] Urea nitrogen [Mass/volume] in Serum or PlasmaOrdered By: Froilan Brown on 12-24-2022 Urea nitrogen [Mass/Vol] 8 mg/dL Normal 7-25 [facility] Comment on above: Performed By: #### B MP #### [address] CBC AUTO DIFFon 05-27-2022 BASO # 0.1 103/ul Normal 0.0-0.1 [facility] Comment on above: Performed By: #### C BC #### [facility] [address] [place] [address] Dr. Domi Saleem Basophils/100 WBC (Bld) 1.2 % Normal 0.2-2.0 [facility] Comment on above: Performed By: #### C BC #### [facility] [address] [place] [address] Dr. Domi Saleem EO # 0.3 103/ul Normal 0.0-0.7 [facility] Comment on above: Performed By: #### C BC #### [facility] [address] [place] [address] Dr. Domi Saleem Eosinophils/100 WBC (Bld) 3.8 % Normal 0.9-7.0 [facility] Comment on above: Performed By: #### C BC #### [facility] [address] [place] [address] Dr. Domi Saleem Erythrocyte distribution width (RBC) [Ratio] 12.5 % Normal 11.0-15.0 [facility] Comment on above: Performed By: #### C BC #### [facility] [address] [place] [address] Dr. Domi Saleem Hematocrit (Bld) [Volume fraction] 42.5 % Normal 36.0-48.0 [facility] Comment on above: Performed By: #### C BC #### [facility] [address] [place] [address] Dr. Domi Saleem Hemoglobin (Bld) [Mass/Vol] 14.6 g/dL Normal 12.0-16.0 [facility] Comment on above: Performed By: #### C BC #### [facility] [address] [place] [address] Dr. Domi Saleem IG # 0.04 10e3/ul Critically high 0.00-0.03 [facility] Comment on above: Performed By: #### C BC #### [facility] [address] [place] [address] Dr. Domi Saleem IG % 0.6 % Critically high 0.0-0.5 [facility] Comment on above: Performed By: #### C BC #### [facility] [address] [place] [address] Dr. Domi Saleem LYMPH # 1.3 103/ul Normal 1.2-3.8 [facility] Comment on above: Performed By: #### C BC #### [facility] [address] [place] [address] Dr. Domi Saleem Lymphocytes/100 WBC (Bld) 18.5 % Critically low 20.5-60.0 [facility] Comment on above: Performed By: #### C BC #### [facility] [address] [place] [address] Dr. Domi Saleem MANUAL DIFF REQ NO Normal [facility] Comment on above: Performed By: #### C BC #### [facility] [address] [place] [address] Dr. Domi Saleem MCH (RBC) [Entitic mass] 31.1 pg Normal 26.7-34.0 [facility] Comment on above: Performed By: #### C BC #### [facility] [address] [address] [address] Domi Saleem MCHC (RBC) [Mass/Vol] 34.4 g/dL Normal 29.9-35.2 [facility] Comment on above: Performed By: #### C BC #### [facility] [address] [address] [address] Domi Saleem MCV (RBC) [Entitic vol] 90.4 fL Normal 81.0-99.0 [facility] Comment on above: Performed By: #### C BC #### [facility] [address] [address] [address] Domi Saleem MONO # 0.3 103/ul Normal 0.3-0.8 [facility] Comment on above: Performed By: #### C BC #### [facility] [address] [place] [address] Dr. Domi Saleem Monocytes/100 WBC (Bld) 4.2 % Normal 1.7-12.0 [facility] Comment on above: Performed By: #### C BC #### [facility] [address] [place] [address] Dr. Domi Saleem NEUT # 5.0 103/ul Normal 1.4-6.5 [facility] Comment on above: Performed By: #### C BC #### [facility] [address] [place] [address] Dr. Domi Saleem Neutrophils/100 WBC (Bld) 71.7 % Normal 43.0-75.0 [facility] Comment on above: Performed By: #### C BC #### [facility] [address] [address] [address] Domi Saleem Platelet mean volume (Bld) [Entitic vol] 8.6 fL Critically low 9.5-13.5 [facility] Comment on above: Performed By: #### C BC #### [facility] [address] [address] [address] Domi Saleem PLT 265 103/ul Normal 150-450 [facility] Comment on above: Performed By: #### C BC #### [facility] [address] [place] [address] Dr. Domi Saleem RBC 4.70 106/ul Normal 4.20-5.40 [facility] Comment on above: Performed By: #### C BC #### [facility] [address] [place] [address] Dr. Domi Saleem WBC 6.9 103/ul Normal 4.0-11.0 [facility] Comment on above: Performed By: #### C BC #### [facility] [address] [place] [address] Dr. Domi Saleem PROF 14(COMP METB)on 023 Albumin [Mass/Vol] 3.7 g/dL Normal 3.4-5.0 [facility] Comment on above: Performed By: #### C MP #### [facility] [address] [place] [address] Dr. Domi Saleem Albumin/Globulin [Mass ratio] 0.9 {ratio} Normal [facility] Comment on above: Performed By: #### C MP #### [facility] [address] [place] [address] Dr. Domi Saleem ALP [Catalytic activity/Vol] 101 U/L Normal 46-116 [facility] Comment on above: Performed By: #### C MP #### [facility] [address] [place] [address] Dr. Domi Saleem ALT [Catalytic activity/Vol] 15 U/L Normal 14-59 [facility] Comment on above: Performed By: #### C MP #### [facility] [address] [place] [address] Dr. Domi Saleem Anion gap [Moles/Vol] 11.9 mmol/L Normal Th [facility] Comment on above: Performed By: #### C MP #### [facility] [address] [place] [address] Dr. Domi Saleem AST [Catalytic activity/Vol] 16 U/L Normal 15-37 [facility] Comment on above: Performed By: #### C MP #### [facility] [address] [address] [address] Domi Saleem Bilirubin [Mass/Vol] 0.3 mg/dL Normal 0.2-1.0 [facility] Comment on above: Performed By: #### C MP #### [facility] [address] [address] [address] Domi Saleem Calcium [Mass/Vol] 9.0 mg/dL Normal 8.5-10.1 [facility] Comment on above: Performed By: #### C MP #### [facility] [address] [address] [address] Domi Saleem Chloride [Moles/Vol] 100 mmol/L Normal 98-107 [facility] Comment on above: Performed By: #### C MP #### [facility] [address] [place] [address] Dr. Domi Saleem CO2 [Moles/Vol] 29.0 mmol/L Normal 21.0-32.0 [facility] Comment on above: Performed By: #### C MP #### [facility] [address] [address] [address] Domi Saleem Creatinine [Mass/Vol] 0.69 mg/dL Normal 0.55-1.02 [facility] Comment on above: Performed By: #### C MP #### [facility] [address] [place] [address] Dr. Domi Saleem EGFR-AF SURINAMESE >60 Normal >=60 [facility] Comment on above: Performed By: #### C MP #### [facility] [address] [address] [address] Domi Saleem EGFR-NON AF SURINAMESE >60 Normal >=60 [facility] Comment on above: Performed By: #### C MP #### [facility] [address] [place] [address] Dr. Domi Saleem Globulin (S) [Mass/Vol] 4.2 g/dL Normal [facility] Comment on above: Performed By: #### C MP #### [facility] [address] [address] [address] Domi Saleem Glucose [Mass/Vol] 124 mg/dL Critically high 74-[address] [facility] Comment on above: Performed By: #### C MP #### [facility] [address] [place] [address] Dr. Domi Saleem Potassium [Moles/Vol] 4.9 mmol/L Normal 3.5-5.1 [facility] Comment on above: Performed By: #### C MP #### [facility] [address] [place] [address] Dr. Domi Saleem Protein [Mass/Vol] 7.9 g/dL Normal 6.4-8.2 [facility] Comment on above: Performed By: #### C MP #### [facility] [address] [place] [address] Dr. Dmoi Saleem Sodium [Moles/Vol] 136 mmol/L Normal 136-145 [facility] Comment on above: Performed By: #### C MP #### [facility] [address] [place] [address] Dr. Domi Saleem Urea nitrogen [Mass/Vol] 9.0 mg/dL Normal 7.0-18.0 [facility] Comment on above: Performed By: #### C MP #### [facility] [address] [place] [address] Dr. Domi Saleem Urea nitrogen/Creatinine [Mass ratio] 13.0 mg/mg Normal [facility] Comment on above: Performed By: #### C MP #### [facility] [address] [place] [address] Dr. Domi Saleem [facility] mm/hr Normal <=30 [facility] Comment on above: Performed By: #### S EDR #### [facility] [address] [place] [address] Dr. Domi Saleem CHEMISTRYOrdered By: SYSTEM SYSTEM on 02-11-2022 Anion gap [Moles/Vol] 14 mmol/L Normal 6 - 16 mEq/L [facility] Calcium [Mass/Vol] 9.2 mg/dL Normal 8.9 - 11. 1 mg/dL [facility] Chloride [Moles/Vol] 92 mmol/L Low 101 - 1 11 mmol/L [facility] CO2 [Moles/Vol] 28 mmol/L Normal 21 - 31 mmol/L [facility] Creatinine [Mass/Vol] 0.8 mg/dL Normal 0.5 - 1.3 mg/dL [facility] Remisol GFR/1.73 sq M.predicted among blacks MDRD (S/P/Bld) [Vol rate/Area] mL/min/1.73 m2 Normal >=59mL/min/ 1.73 m2 [facility] S GFR/1.73 sq M.predicted among non-blacks MDRD (S/P/Bld) [Vol rate/Area] mL/min/1.73 m2 Normal >=59mL/min/ 1.73 m2 [facility] Chem S Glucose [Mass/Vol] 108 mg/dL Normal 55 - 199 mg/dL [facility] Potassium [Moles/Vol] 4.0 mmol/L Normal 3.5 - 5.3 mmol/L [facility] Sodium [Moles/Vol] 130 mmol/L Low 135 - 145 mmol/L [facility] Urea nitrogen [Mass/Vol] 16 mg/dL Normal 5 - 21 mg/dL [facility] Urea nitrogen/Creatinine [Mass ratio] 20 mg/mg Normal 10 - 20 [facility] HEMATOLOGYOrdered By: John Ellsworth on 02-11-2022 Erythrocyte distribution width (RBC) [Ratio] 13.2 % Normal 10.9 - 14.2 % [facility] Hematocrit (Bld) [Volume fraction] 42.8 % Normal 34.0 - 46.0 % [facility] Hemoglobin (Bld) [Mass/Vol] 15.1 g/dL Normal 12.0 - 16.0 gm/dL [facility] MCH (RBC) [Entitic mass] 31.6 pg Normal 27.0 - 34.0 pg [facility] MCHC (RBC) [Mass/Vol] 35.2 g/dL Normal 31.4 - 36.0 gm/dL [facility] MCV (RBC) [Entitic vol] 89.7 fL Normal 80.0 - 100.0 fL [facility] Platelet mean volume (Bld) [Entitic vol] 6.8 fL Normal 6.4 - 10.8 fL [facility] Platelets (Bld) [#/Vol] 275.0 E9/L Normal 150.0 - 500.0 E9/L [facility] RBC (Bld) [#/Vol] 4.8 E12/L Normal 4.3 - 5.9 E12/L [facility] WBC corrected for nucl RBC Auto (Bld) [#/Vol] 7.3 E9/L Normal 4.0 - 11.0 E9/L [facility] CBC AUTO DIFFon 11-19-2021 BASO # 0.1 103/ul Normal 0.0-0.1 [facility] Comment on above: Performed By: #### C BC #### [facility] [address] [place] [address] Dr. Domi Saleem Basophils/100 WBC (Bld) 0.9 % Normal 0.2-2.0 [facility] Comment on above: Performed By: #### C BC #### [facility] [address] [place] [address] Dr. Domi Saleem EO # 0.2 103/ul Normal 0.0-0.7 [facility] Comment on above: Performed By: #### C BC #### [facility] [address] [place] [address] Dr. Domi Saleem Eosinophils/100 WBC (Bld) 2.4 % Normal 0.9-7.0 [facility] Comment on above: Performed By: #### C BC #### [facility] [address] [place] [address] Dr. Domi Saleem Erythrocyte distribution width (RBC) [Ratio] 12.6 % Normal 11.0-15.0 [facility] Comment on above: Performed By: #### C BC #### [facility] [address] [place] [address] Dr. Domi Saleem Hematocrit (Bld) [Volume fraction] 44.4 % Normal 36.0-48.0 [facility] Comment on above: Performed By: #### C BC #### [facility] [address] [place] [address] Dr. Domi Saleem Hemoglobin (Bld) [Mass/Vol] 15.1 g/dL Normal 12.0-16.0 [facility] Comment on above: Performed By: #### C BC #### [facility] [address] [place] [address] Dr. Domi Saleem IG # 0.04 10e3/ul Critically high 0.00-0.03 [facility] Comment on above: Performed By: #### C BC #### [facility] [address] [place] [address] Dr. Domi Saleem IG % 0.5 % Normal 0.0-0.5 [facility] Comment on above: Performed By: #### C BC #### [facility] [address] [place] [address] Dr. Domi Saleem LYMPH # 1.6 103/ul Normal 1.2-3.8 [facility] Comment on above: Performed By: #### C BC #### [facility] [address] [place] [address] Dr. Domi Saleem Lymphocytes/100 WBC (Bld) 19.1 % Critically low 20.5-60.0 [facility] Comment on above: Performed By: #### C BC #### [facility] [address] [place] [address] Dr. Domi Saleem MANUAL DIFF REQ NO Normal [facility] Comment on above: Performed By: #### C BC #### [facility] [address] [place] [address] Dr. Domi Saleem MCH (RBC) [Entitic mass] 31.5 pg Normal 26.7-34.0 [facility] Comment on above: Performed By: #### C BC #### [facility] [address] [place] [address] Dr. Domi Saleem MCHC (RBC) [Mass/Vol] 34.0 g/dL Normal 29.9-35.2 [facility] Comment on above: Performed By: #### C BC #### [facility] [address] [place] [address] Dr. Domi Saleem MCV (RBC) [Entitic vol] 92.5 fL Normal 81.0-99.0 [facility] Comment on above: Performed By: #### C BC #### [facility] [address] [place] [address] Dr. Domi Saleem MONO # 0.5 103/ul Normal 0.3-0.8 [facility] Comment on above: Performed By: #### C BC #### [facility] [address] [address] [address] Domi Saleem Monocytes/100 WBC (Bld) 6.1 % Normal 1.7-12.0 [facility] Comment on above: Performed By: #### C BC #### [facility] [address] [place] [address] Dr. Domi Saleem NEUT # 5.8 103/ul Normal 1.4-6.5 [facility] Comment on above: Performed By: #### C BC #### [facility] [address] [place] [address] Dr. Domi Saleem Neutrophils/100 WBC (Bld) 71.0 % Normal 43.0-75.0 [facility] Comment on above: Performed By: #### C BC #### [facility] [address] [place] [address] Dr. Domi Saleem Platelet mean volume (Bld) [Entitic vol] 8.7 fL Critically low 9.5-13.5 [facility] Comment on above: Performed By: #### C BC #### [facility] [address] [place] [address] Dr. Domi Saleem PLT 246 103/ul Normal 150-450 [facility] Comment on above: Performed By: #### C BC #### [facility] [address] [place] [address] Dr. Domi Saleem RBC 4.80 106/ul Normal 4.20-5.40 [facility] Comment on above: Performed By: #### C BC #### [facility] [address] [place] [address] Dr. Domi Saleem WBC 8.2 103/ul Normal 4.0-11.0 [facility] Comment on above: Performed By: #### C BC #### [facility] [address] [place] [address] Dr. Domi Saleem GLYCOHEMOGLOBIN A1Con 2021 [facility] RECOMMENDATION SEE BELOW Normal [facility] Comment on above: Result Comment: ADA RECOMMENDED LIMIT 4.0 - 6.0 [facility] THERAPEUTIC TARGET < 7.0 ACTION SUGGESTED > 7.0 Performed By: #### A 1C #### [facility] [address] [place] [address] Dr. Domi Saleem Glucose [Mass/Vol] 117 mg/dL Normal [facility] Comment on above: Performed By: #### A 1C #### [facility] [address] [place] [address] Dr. Domi Saleem HbA1c (Bld) [Mass fraction] 5.7 % Normal 4.5-6.2 [facility] Comment on above: Performed By: #### A 1C #### [facility] [address] [place] [address] Dr. Domi Saleem PROF 14(COMP METB)on 022 Albumin [Mass/Vol] 4.0 g/dL Normal 3.4-5.0 [facility] Comment on above: Performed By: #### C MP #### [facility] [address] [place] [address] Dr. Domi Saleem Albumin/Globulin [Mass ratio] 1.1 {ratio} Normal [facility] Comment on above: Performed By: #### C MP #### [facility] [address] [place] [address] Dr. Domi Saleem ALP [Catalytic activity/Vol] 91 U/L Normal 46-116 [facility] Comment on above: Performed By: #### C MP #### [facility] [address] [place] [address] Dr. Domi Saleem ALT [Catalytic activity/Vol] 16 U/L Normal 14-59 [facility] Comment on above: Performed By: #### C MP #### [facility] [address] [place] [address] Dr. Domi Saleem Anion gap [Moles/Vol] 10.3 mmol/L Normal [facility] Comment on above: Performed By: #### C MP #### [facility] [address] [address] [address] Domi Saleem AST [Catalytic activity/Vol] 24 U/L Normal 15-37 [facility] Comment on above: Performed By: #### C MP #### [facility] [address] [address] [address] Domi Saleem Bilirubin [Mass/Vol] 0.5 mg/dL Normal 0.2-1.0 [facility] Comment on above: Performed By: #### C MP #### [facility] [address] [address] [address] Domi Saleem Calcium [Mass/Vol] 9.1 mg/dL Normal 8.5-10.1 [facility] Comment on above: Performed By: #### C MP #### [facility] [address] [address] [address] Domi Saleem Chloride [Moles/Vol] 95 mmol/L Critically low 98-107 [facility] Comment on above: Performed By: #### C MP #### [facility] [address] [address] [address] Domi Saleem CO2 [Moles/Vol] 27.4 mmol/L Normal 21.0-32.0 [facility] Comment on above: Performed By: #### C MP #### [facility] [address] [address] [address] Domi Saleem Creatinine [Mass/Vol] 0.77 mg/dL Normal 0.55-1.02 [facility] Comment on above: Performed By: #### C MP #### [facility] [address] [address] [address] Domi Saleem EGFR-AF SURINAMESE >60 Normal >=60 [facility] Comment on above: Performed By: #### C MP #### [facility] [address] [address] [address] Domi Saleem EGFR-NON AF SURINAMESE >60 Normal >=60 [facility] Comment on above: Performed By: #### C MP #### [facility] [address] [address] [address] Domi Saleem Globulin (S) [Mass/Vol] 3.8 g/dL Normal [facility] Comment on above: Performed By: #### C MP #### [facility] [address] [address] [address] Domi Saleem Glucose [Mass/Vol] 141 mg/dL Critically high 74-[address] [facility] Comment on above: Performed By: #### C MP #### [facility] [address] [address] [address] Domi Saleem Potassium [Moles/Vol] 4.7 mmol/L Normal 3.5-5.1 [facility] Comment on above: Performed By: #### C MP #### [facility] [address] [place] [address] Dr. Domi Saleem Protein [Mass/Vol] 7.8 g/dL Normal 6.4-8.2 [facility] Comment on above: Performed By: #### C MP #### [facility] [address] [place] [address] Dr. Domi Saleem Sodium [Moles/Vol] 128 mmol/L Critically low 136-145 Th [facility] Comment on above: Performed By: #### C MP #### [facility] [address] [place] [address] Dr. Domi Saleem Urea nitrogen [Mass/Vol] 14.0 mg/dL Normal 7.0-18.0 [facility] Comment on above: Performed By: #### C MP #### [facility] [address] [place] [address] Dr. Domi Saleem Urea nitrogen/Creatinine [Mass ratio] 18.2 mg/mg Normal [facility] Comment on above: Performed By: #### C MP #### [facility] [address] [place] [address] Dr. Domi Saleem SED RATE [facility] 2021 SED RATE 34 mm/hr Critically high <=30 [facility] Comment on above: Performed By: #### S EDR #### [facility] [address] [place], [place] [id number] Dr. Domi Saleem CBC AUTO DIFFon 07-18-2021 BASO # 0.1 103/ul Normal 0.0-0.1 [facility] Comment on above: Performed By: #### C BC #### [facility] [address] [place] [address] Dr. Domi Saleem Basophils/100 WBC (Bld) 1.2 % Normal 0.2-2.0 [facility] Comment on above: Performed By: #### C BC #### [facility] [address] [place] [address] Dr. Domi Saleem EO # 0.2 103/ul Normal 0.0-0.7 [facility] Comment on above: Performed By: #### C BC #### [facility] [address] [place] [address] Dr. Domi Saleem Eosinophils/100 WBC (Bld) 4.0 % Normal 0.9-7.0 [facility] Comment on above: Performed By: #### C BC #### [facility] [address] [place] [address] Dr. Domi Saleem Erythrocyte distribution width (RBC) [Ratio] 12.8 % Normal 11.0-15.0 [facility] Comment on above: Performed By: #### C BC #### [facility] [address] [place] [address] Dr. Domi Saleem Hematocrit (Bld) [Volume fraction] 45.2 % Normal 36.0-48.0 [facility] Comment on above: Performed By: #### C BC #### [facility] [address] [place] [address] Dr. Domi Saleem Hemoglobin (Bld) [Mass/Vol] 15.0 g/dL Normal 12.0-16.0 [facility] Comment on above: Performed By: #### C BC #### [facility] [address] [place] [address] Dr. Domi Saleem IG # 0.02 10e3/ul Normal 0.00-0.03 [facility] Comment on above: Performed By: #### C BC #### [facility] [address] [place] [address] Dr. Domi Saleem IG % 0.4 % Normal 0.0-0.5 [facility] Comment on above: Performed By: #### C BC #### [facility] [address] [place] [address] Dr. Domi Saleem LYMPH # 1.1 103/ul Critically low 1.2-3.8 [facility] Comment on above: Performed By: #### C BC #### [facility] [address] [place] [address] Dr. Domi Saleem Lymphocytes/100 WBC (Bld) 22.8 % Normal 20.5-60.0 [facility] Comment on above: Performed By: #### C BC #### [facility] [address] [place] [address] Dr. Domi Saleem MANUAL DIFF REQ NO Normal [facility] Comment on above: Performed By: #### C BC #### [facility] [address] [place] [address] Dr. Domi Saleem MCH (RBC) [Entitic mass] 31.4 pg Normal 26.7-34.0 [facility] Comment on above: Performed By: #### C BC #### [facility] [address] [place] [address] Dr. Domi Saleem MCHC (RBC) [Mass/Vol] 33.2 g/dL Normal 29.9-35.2 [facility] Comment on above: Performed By: #### C BC #### [facility] [address] [place] [address] Dr. Domi Saleem MCV (RBC) [Entitic vol] 94.8 fL Normal 81.0-99.0 [facility] Comment on above: Performed By: #### C BC #### [facility] [address] [place] [address] Dr. Domi Saleem MONO # 0.3 103/ul Normal 0.3-0.8 [facility] Comment on above: Performed By: #### C BC #### [facility] [address] [place] [address] Dr. Domi Saleem Monocytes/100 WBC (Bld) 6.8 % Normal 1.7-12.0 [facility] Comment on above: Performed By: #### C BC #### [facility] [address] [place] [address] Dr. Domi Saleem NEUT # 3.2 103/ul Normal 1.4-6.5 [facility] Comment on above: Performed By: #### C BC #### [facility] [address] [place] [address] Dr. Domi Saleem Neutrophils/100 WBC (Bld) 64.8 % Normal 43.0-75.0 [facility] Comment on above: Performed By: #### C BC #### [facility] [address] [place] [address] Dr. Domi Saleem Platelet mean volume (Bld) [Entitic vol] 8.9 fL Critically low 9.5-13.5 [facility] Comment on above: Performed By: #### C BC #### [facility] [address] [place] [address] Dr. Domi Saleem PLT 222 103/ul Normal 150-450 [facility] Comment on above: Performed By: #### C BC #### [facility] [address] [place] [address] Dr. Domi Saleem RBC 4.77 106/ul Normal 4.20-5.40 [facility] Comment on above: Performed By: #### C BC #### [facility] [address] [place] [address] Dr. Domi Saleem WBC 5.0 103/ul Normal 4.0-11.0 [facility] Comment on above: Performed By: #### C BC #### [facility] [address] [place] [address] Dr. Domi Saleem PROF 14(COMP METB)on 022 Albumin [Mass/Vol] 3.6 g/dL Normal 3.4-5.0 [facility] Comment on above: Performed By: #### C MP #### [facility] [address] [place] [address] Dr. Domi Saleem Albumin/Globulin [Mass ratio] 1.0 {ratio} Normal [facility] Comment on above: Performed By: #### C MP #### [facility] [address] [address] [address] Domi Saleem ALP [Catalytic activity/Vol] 79 U/L Normal 46-116 [facility] Comment on above: Performed By: #### C MP #### [facility] [address] [address] [address] Domi Saleem ALT [Catalytic activity/Vol] 19 U/L Normal 14-59 [facility] Comment on above: Performed By: #### C MP #### [facility] [address] [address] [address] Domi Saleem Anion gap [Moles/Vol] 10.0 mmol/L Normal [facility] Comment on above: Performed By: #### C MP #### [facility] [address] [place] [address] Dr. Domi Saleem AST [Catalytic activity/Vol] 13 U/L Critically low 15-37 [facility] Comment on above: Performed By: #### C MP #### [facility] [address] [place] [address] Dr. Domi Saleem Bilirubin [Mass/Vol] 0.3 mg/dL Normal 0.2-1.0 [facility] Comment on above: Performed By: #### C MP #### [facility] [address] [place] [address] Dr. Domi Saleem Calcium [Mass/Vol] 8.4 mg/dL Critically low 8.5-10.1 [facility] Comment on above: Performed By: #### C MP #### [facility] [address] [address] [address] Domi Saleem Chloride [Moles/Vol] 101 mmol/L Normal 98-107 [facility] Comment on above: Performed By: #### C MP #### [facility] [address] [place] [address] Dr. Domi Saleem CO2 [Moles/Vol] 31.3 mmol/L Normal 21.0-32.0 [facility] Comment on above: Performed By: #### C MP #### [facility] [address] [address] [address] Domi Saleem Creatinine [Mass/Vol] 0.75 mg/dL Normal 0.55-1.02 [facility] Comment on above: Performed By: #### C MP #### [facility] [address] [address] [address] Domi Saleem EGFR-AF SURINAMESE >60 Normal >=60 [facility] Comment on above: Performed By: #### C MP #### [facility] [address] [address] [address] Domi Saleem EGFR-NON AF SURINAMESE >60 Normal >=60 [facility] Comment on above: Performed By: #### C MP #### [facility] [address] [address] [address] Domi Saleem Globulin (S) [Mass/Vol] 3.6 g/dL Normal [facility] Comment on above: Performed By: #### C MP #### [facility] [address] [address] [address] Domi Saleem Glucose [Mass/Vol] 120 mg/dL Critically high 74-[address] [facility] Comment on above: Performed By: #### C MP #### [facility] [address] [address] [address] Domi Saleem Potassium [Moles/Vol] 5.3 mmol/L Critically high 3.5-5.1 [facility] Comment on above: Performed By: #### C MP #### [facility] [address] [address] [address] Domi Saleem Protein [Mass/Vol] 7.2 g/dL Normal 6.1-8.2 [facility] Comment on above: Performed By: #### C MP #### [facility] [address] [address] [address] Domi Saleem Sodium [Moles/Vol] 137 mmol/L Normal 136-145 [facility] Comment on above: Performed By: #### C MP #### [facility] [address] [address] [address] Domi Saleem Urea nitrogen [Mass/Vol] 20.0 mg/dL Critically high 7.0-18.0 [facility] Comment on above: Performed By: #### C MP #### [facility] [address] [address] [address] Domi Saleem Urea nitrogen/Creatinine [Mass ratio] 26.7 mg/mg Normal [facility] Comment on above: Performed By: #### C MP #### [facility] [address] [address] [address] Domi Saleem SED RATE [facility] 2021 SED RATE 13 mm/hr Normal <=30 [facility] Comment on above: Performed By: #### S EDR #### [facility] [address] [address] [address] Domi Saleem CNOVSPon 08-20-2018 CNOVSP Visit (SP) Office (H [facility]) -- RUMA CARLTON ([id number]) 1960 F Date Time Provider Department 08/20/18 11:15 AM LEDY GILMAN During your visit today, we recorded the following information about you: Temperature Pulse Respiration Blood pressure 98.6 degrees 61/minute 18/minute 142/80 Weight Height 115.5 kg 1.6 m Ledy Gilman MD 08/20/2018 11:48 AM Signed HPI Ruma Brandt is a 57 year old female [...] Procedure Laterality Date - BACK SURGERY HX 2008 fusion L4-L5 disc with bone grafts, 2 [...] ABS GRAN CT + CBC (FOR REMOTE [facility] USE) - COMP METABOLIC PANEL - PROTEIN ELECTROPHORESIS W/INTERP - IMMUNOFIXATION SCREEN, SERUM - KAPPA/GERMAIN,FREE,SER - LUPUS ANTICOAG PL 2. 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 Will check labs and see me in follow up - ABS GRAN CT + CBC (FOR REMOTE [facility] USE) - COMP METABOLIC PANEL - PROTEIN ELECTROPHORESIS W/INTERP - IMMUNOFIXATION SCREEN, SERUM - KAPPA/GERMAIN,FREE,SER - LUPUS ANTICOAG PL Ledy Gilman MD Referring Provider: CARMELITA SINGH JR [[id number]] Allergies As of Date: 08/20/2018 Noted Allergy [...] Order(s):ABS GRAN CT + CBC (FOR REMOTE C USE) [SQRAGCBC] Order #: [id number] FUTURE COMP METABOLIC PANEL [SQCMP] Order #: [id number] FUTURE PROTEIN ELECTROPHORESIS W/INTERP [SQSEPG] Order #: [id number] FUTURE IMMUNOFIXATION SCREEN, SERUM [SQIFESC] Order #: [id number] FUTURE KAPPA/GERMAIN,FREE,SER [SQKLFRS] Order #: [id number] FUTURE LUPUS ANTICOAG PL [SQLUPUSP] Order #: [id number] FUTURE Disposition: Return in about 1 year [...] Status:Closed by LEDY GILMAN MD on 08/20/18 [facility] PROGRESSon 08-20-2018 Protein mass conc HNO ID: [id number] Author: Ledy Gilman Service: ? Author Type: Physician Type: Progress Notes Filed: 08/20/2018 11:48 AM Note Text: ÁNGEL Carlton is a 57 year old female who [...] ABS GRAN CT + CBC (FOR [facility] USE) - COMP METABOLIC PANEL - PROTEIN ELECTROPHORESIS W/INTERP - IMMUNOFIXATION SCREEN, SERUM - KAPPA/GERMAIN,FREE,SER - LUPUS ANTICOAG PL 2. 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 Will check labs and see me in follow up - ABS GRAN CT + CBC (FOR REMOTE [facility] USE) - COMP METABOLIC PANEL - PROTEIN ELECTROPHORESIS W/INTERP - IMMUNOFIXATION SCREEN, SERUM - KAPPA/GERMAIN,FREE,SER - LUPUS ANTICOAG PL Ledy Gimlan MD Normal [facility] Vital Signs Date Time Vital Sign Value Performing Clinician Facility 05-28-2024 11:36-0500 Body height 157.48 cm [facility] 05-28-2024 11:36-0500 Body mass index (BMI) [Ratio] 46.7 kg/m2 [facility] 05-28-2024 11:36-0500 Body weight 115.83 kg [facility] 05-28-2024 11:36-0500 Diastolic blood pressure 77 mm[Hg] [facility] 05-28-2024 11:36-0500 Heart rate 77 /min [facility] 05-28-2024 11:36-0500 Respiratory rate 14 /min [facility] 05-28-2024 11:36-0500 SaO2% (BldA) [Mass fraction] 99 % [facility] 05-28-2024 11:36-0500 Systolic blood pressure 121 mm[Hg] [facility] 01-22-2024 10:09-0400 Body height 157.48 cm MD Anibal Cahudhary Work Phone: [facility] 01-22-2024 10:09-0400 Body mass index (BMI) [Ratio] 47.9 kg/m2 MD Anibal Chaudhary Work Phone: [facility] 01-22-2024 10:09-0400 Body weight 118.95 kg MD Anibal Chaudhary Work Phone: [facility] 01-22-2024 10:09-0400 Diastolic blood pressure 84 mm[Hg] MD Anibal Chaudhary Work Phone: [facility] 01-22-2024 10:09-0400 Heart rate 113 /min MD Anibal Chaudhary Work Phone: [facility] 01-22-2024 10:09-0400 SaO2% (BldA) [Mass fraction] 99 % MD Anibal Chaudhary Work Phone: [facility] 01-22-2024 10:09-0400 Systolic blood pressure 124 mm[Hg] MD Anibal Chaudhary Work Phone: [facility] 10-27-2023 13:42-0400 Body height 157.48 cm [facility] 10-27-2023 13:42-0400 Body mass index (BMI) [Ratio] 49.1 kg/m2 [facility] 10-27-2023 13:42-0400 Body weight 122.01 kg [facility] 10-27-2023 13:42-0400 Diastolic blood pressure 81 mm[Hg] [facility] 10-27-2023 13:42-0400 Heart rate 91 /min [facility] 10-27-2023 13:42-0400 Systolic blood pressure 144 mm[Hg] [facility] 08-19-2023 10:39-0400 Body height 157.48 cm MD Anibal Chaudhary Work Phone: [facility] 08-19-2023 10:39-0400 Body mass index (BMI) [Ratio] 48.4 kg/m2 MD Anibal Chaudhary Work Phone: [facility] 08-19-2023 10:39-0400 Body weight 120.2 kg MD Anibal Chaudhary Work Phone: [facility] 08-19-2023 10:39-0400 Diastolic blood pressure 80 mm[Hg] MD Anibal Chaudhary Work Phone: [facility] 08-19-2023 10:39-0400 Heart rate 73 /min MD Anibal Chaudhary Work Phone: [facility] 08-19-2023 10:39-0400 SaO2% (BldA) [Mass fraction] 98 % MD Anibal Chaudhary Work Phone: [facility] 08-19-2023 10:39-0400 Systolic blood pressure 150 mm[Hg] MD Anibal Chaudhary Work Phone: [facility] 05-08-2023 14:56-0500 Body height 157.48 cm MD Anibal Chaudhary Work Phone: [facility] 05-08-2023 14:56-0500 Body mass index (BMI) [Ratio] 42.6 kg/m2 MD Anibal Chaudhary Work Phone: [facility] 05-08-2023 14:56-0500 Body weight 105.74 kg MD Anibal Chaudhary Work Phone: [facility] 05-08-2023 14:56-0500 Diastolic blood pressure 85 mm[Hg] MD Anibal Chaudhary Work Phone: [facility] 05-08-2023 14:56-0500 Heart rate 85 /min MD Anibal Chaudhary Work Phone: [facility] 05-08-2023 14:56-0500 Systolic blood pressure 151 mm[Hg] MD Anibal Chaudhary Work Phone: [facility] 12-27-2022 14:45-0400 Body height 157.48 cm Anibal Chaudhary Other [facility] [id number] Other 12-27-2022 14:45-0400 Body mass index (BMI) [Ratio] 38.59 kg/m2 Anibal Chaudhary Other [employer] Other 12-27-2022 14:45-0400 Body weight 95.71 kg Anibal Chaudhary Other [employer] Other 12-27-2022 14:45-0400 Diastolic blood pressure 81 mm[Hg] Anibal Chaudhary Other [employer] Other 12-27-2022 14:45-0400 SaO2% (BldA) [Mass fraction] 99 % Anibal Chaudhary Other [employer] Other 12-27-2022 14:45-0400 Systolic blood pressure 116 mm[Hg] Anibal Chaudhary Other [facility] [id number] Other 12-24-2022 08:00-0400 Body temperature 98.2 [degF] MD Anibal Chaudhary Work Phone: [facility] 12-24-2022 08:00-0400 Diastolic blood pressure 78 mm[Hg] MD Anibal Chaudhary Work Phone: [facility] 12-24-2022 08:00-0400 Heart rate 93 /min MD Anibal Chaudhary Work Phone: [facility] 12-24-2022 08:00-0400 Respiratory rate 18 /min MD Anibal Chaudhary Work Phone: [facility] 12-24-2022 08:00-0400 SaO2% (BldA) [Mass fraction] 99 % MD Anibal Chaudhary Work Phone: [facility] 12-24-2022 08:00-0400 Systolic blood pressure 126 mm[Hg] MD Anibal Chaudhary Work Phone: [facility] 12-24-2022 02:42-0400 Body height 157.48 cm MD Anibal Chaudhary Work Phone: [facility] 12-24-2022 02:42-0400 Body weight 94.4 kg MD Anibal Chaudhary Work Phone: [facility] 11-15-2022 13:00-0400 Body height 157.48 cm Anibal Chaudhary Other [employer] [facility] [id number] Other 11-15-2022 13:00-0400 Body mass index (BMI) [Ratio] 39.69 kg/m2 Anibal Chaudhary Other [facility] [id number] Other 11-15-2022 13:00-0400 Body weight 98.43 kg Anibal Chaudhary Other [employer] Other 11-15-2022 13:00-0400 Diastolic blood pressure 78 mm[Hg] Anibal Chaudhary Other [employer] Other 11-15-2022 13:00-0400 Systolic blood pressure 140 mm[Hg] Anibal Chaudhary Other [employer] Other 09-12-2022 11:30-0400 Body height 157.48 cm Anibal Chaudhary Other [employer] Other 09-12-2022 11:30-0400 Body mass index (BMI) [Ratio] 39.14 kg/m2 Anibal Chaudhary Other [employer] Other 09-12-2022 11:30-0400 Body weight 97.07 kg Anibal Chaudhary Other [employer] Other 09-12-2022 11:30-0400 Diastolic blood pressure 85 mm[Hg] Anibal Chaudhary Other [employer] Other 09-12-2022 11:30-0400 Systolic blood pressure 157 mm[Hg] Anibal Chaudhary Other [employer] Other 04-29-2022 09:45-0500 Body height 157.48 cm Anibal Chaudhary Other [employer] Other 04-29-2022 09:45-0500 Body mass index (BMI) [Ratio] 47.55 kg/m2 Anibal Chaudhary Other [employer] Other 04-29-2022 09:45-0500 Body weight 117.94 kg Anibal Chaudhary Other [employer] Other 04-29-2022 09:45-0500 Diastolic blood pressure 88 mm[Hg] Anibal Chaudhary Other [employer] Other 04-29-2022 09:45-0500 SaO2% (BldA) [Mass fraction] 97 % Anibal Chaudhary Other [employer] Other 04-29-2022 09:45-0500 Systolic blood pressure 132 mm[Hg] Anibal Chaudhary Other [employer] Other 07-07-2020 07:58-0400 Body height 160.02 cm Anibal Chaudhary Work Phone: [facility] 07-07-2020 07:58-0400 Body weight 97.06 kg Anibal Chaudhary Work Phone: [facility] Encounters Encounter Date Encounter Type Care Provider Facility Start: 05-28-2024 End: 05-28-2024 ambulatory [facility] Work Phone: Start: 05-28-2024 End: 05-28-2024 Patient encounter procedure [facility] Work Phone: Start: 05-26-2024 End: 05-26-2024 ambulatory [facility] Start: 05-20-2024 Non-patient / Non-visit [facility] Work Phone: Start: 05-20-2024 End: 05-20-2024 ambulatory [facility] Start: 05-17-2024 Non-patient / Non-visit [facility] Work Phone: Start: 05-12-2024 Evaluation and management of inpatient [facility] Start: 05-12-2024 Non-patient / Non-visit [facility] Work Phone: Start: 05-11-2024 End: 05-14-2024 Evaluation and management of inpatient DARY AMARAL [facility] Start: 05-11-2024 End: 05-11-2024 Non-patient / Non-visit [facility] Work Phone: Start: 05-11-2024 Non-patient / Non-visit [facility] Work Phone: Start: 05-10-2024 Non-patient / Non-visit [facility] Work Phone: Start: 02-05-2024 End: 02-05-2024 [place] Start: 01-22-2024 End: 01-22-2024 ambulatory MD Anibal Chaudhary Work Phone: [facility] Work Phone: Start: 01-22-2024 End: 01-22-2024 Patient encounter procedure MD Anibal Chaudhary Work Phone: [facility] Work Phone: Start: 01-21-2024 Non-patient / Non-visit MD Marlen Chaudhary Work Phone: [facility] Work Phone: Start: 01-08-2024 End: 01-08-2024 ambulatory AGUEDA ZUÑIGA [facility] Start: 01-08-2024 Non-patient / Non-visit MD Marlen Chaudhary Work Phone: [facility] Work Phone: Start: 12-30-2023 Evaluation and management of inpatient [facility] Start: 12-29-2023 Evaluation and management of inpatient [facility] Start: 12-29-2023 [facility] Start: 12-28-2023 Evaluation and management of inpatient RHONDA [facility] Start: 12-28-2023 Evaluation and management of inpatient RHONDA BARNES [facility] Start: 12-27-2023 Evaluation and management of inpatient AGUEDA AUGUSTEWIMONO [facility] Start: 12-26-2023 Evaluation and management of inpatient AGUEDA AUGUSTEWIMONO [facility] Start: 12-26-2023 Evaluation and management of inpatient AGUEDA AUGUSTEWIMONO [facility] Start: 12-25-2023 Evaluation and management of inpatient ALNA [facility] Start: 12-25-2023 Evaluation [facility] Start: 12-24-2023 Evaluation and management of inpatient RIAN BECKIE [facility] Start: 12-23-2023 Evaluation and management of inpatient [facility] Start: 12-22-2023 Evaluation and management of inpatient [facility] Start: 12-21-2023 Evaluation and management of inpatient [facility] Start: 12-19-2023 Evaluation [facility] management [facility] Start: 12-18-2023 Evaluation and management of inpatient [facility]EDA [facility] Start: 12-18-2023 Evaluation and management of inpatient AGUEDA ZUÑIGA [facility] Start: 12-17-2023 Evaluation and management of inpatient [facility] Start: 12-16-2023 Evaluation and management of inpatient [facility] Start: 12-16-2023 Evaluation and management of inpatient [facility] Start: 12-15-2023 Evaluation and management of inpatient [facility] Start: 12-15-2023 Evaluation and management of inpatient [facility] Start: 12-15-2023 Evaluation and management of inpatient [facility] Start: 12-11-2023 Evaluation and management of inpatient [facility] Start: 12-11-2023 Evaluation and management of inpatient DION JULIEN [facility] Start: 12-10-2023 Evaluation and management of inpatient JOSÉ MIGUEL MURRIETA [facility] Start: 12-08-2023 Evaluation [facility] management [facility] Start: 12-08-2023 End: 12-08-2023 Evaluation and management of inpatient MANSI GARCIADMITRY [facility] Start: 12-08-2023 Evaluation and management of inpatient UMAIR PEREYRA [facility] Start: 12-06-2023 Evaluation and management of inpatient AGUEDA Miramontes [facility] Start: 12-06-2023 Evaluation and management of inpatient AGUEDA Miram[facility] Start: 12-05-2023 ambulatory DAYA JOHNSON [facility] Start: 12-05-2023 End: 12-30-2023 Evaluation and management of inpatient ALAN PATEL [facility] Start: 12-04-2023 End: 12-04-2023 Patient encounter procedure MD Anibal Chaudhary Work Phone: [facility] [place] Work Phone: Start: 12-04-2023 End: 12-04-2023 ambulatory MD Anibal Chaudhary Work Phone: [facility] Work Phone: Start: 12-03-2023 End: 12-03-2023 ambulatory GALE ALARCON [facility] Start: 12-02-2023 End: 12-02-2023 Departed Referred MD Anibal Chaudhary Work Phone: [facility] [place] Work Phone: Start: 12-02-2023 End: 12-02-2023 Patient encounter procedure MD Anibal Chaudhary Work Phone: [facility] [place] Work Phone: Start: 12-02-2023 End: 12-02-2023 ambulatory MD Anibal Chaudhary Work Phone: [facility] Work Phone: Start: 11-03-2023 End: 11-03-2023 Patient encounter procedure MD Anibal Chaudhary Work Phone: [facility] [place] Work Phone: Start: 11-03-2023 End: 11-03-2023 ambulatory MD Anibal Chaudhary Work Phone: [facility] Work Phone: Start: 10-27-2023 End: 10-27-2023 ambulatory [facility] Work Phone: Start: 10-27-2023 End: 10-27-2023 Patient encounter procedure [facility] Work Phone: Start: 09-07-2023 Non-patient / Non-visit [facility] Work Phone: Start: 08-19-2023 End: 08-19-2023 ambulatory MD Anibal Chaudhary Work Phone: [facility] Work Phone: Start: 08-19-2023 End: 08-19-2023 Patient encounter procedure MD Anibal Chaudhary Work Phone: [facility] Work Phone: Start: 07-10-2023 Non-patient / Non-visit MD Marlen Chaudhary Work Phone: [facility] Work Phone: Start: 07-08-2023 End: 07-08-2023 Patient encounter procedure MD Anibal Chaudhary Work Phone: [facility] Start: 07-08-2023 End: 07-08-2023 ambulatory MD Anibal Chaudhary Work Phone: [facility] Work Phone: Start: 06-13-2023 End: 06-13-2023 ambulatory DAYA LOUISEPEGGYCHRISTIANNICOLASA [facility] Start: 06-04-2023 End: 06-04-2023 ambulatory JOSH POCOS Not Available Start: 05-29-2023 End: 08-27-2023 ambulatory Josh Pocos Facility:[facility] Start: 05-29-2023 End: 08-27-2023 Recurring Josh Pocos [facility] Start: 05-29-2023 End: 05-29-2023 ambulatory ANIBAL CHAUDHARY Facility:[facility] Start: 05-29-2023 End: 05-29-2023 Patient encounter procedure Josh Pocos [facility] Start: 05-16-2023 End: 05-16-2023 ambulatory JOSH POCOS Not Available Start: 05-08-2023 End: 05-08-2023 ambulatory MD Anibal Chaudhary Work Phone: [facility] Work Phone: Start: 05-08-2023 End: 05-08-2023 Patient encounter procedure MD Anibal [facility]audhary [facility] Work Phone: Start: 02-25-2023 End: 02-25-2023 Departed Referred MD Anibal Chaudhary Work Phone: [facility] Work Phone: Start: 02-25-2023 End: 02-25-2023 ambulatory MD Anibal Chaudhary Work Phone: [facility] Work Phone: Start: 02-11-2023 End: 02-11-2023 ambulatory Anibal Chaudhary Other [employer] Other Start: 02-11-2023 Telephone encounter Anibal Chaudhary [facility] Start: 12-27-2022 End: 12-27-2022 ambulatory Anibal Chaudhary Other [employer] Other Start: 12-27-2022 Office outpatient vi sit 25 minutes Anibal Chaudhary [facility] Start: 12-25-2022 End: 12-25-2022 ambulatory Anibal Chaudhary Other [employer] Other Start: 12-25-2022 Telephone encounter Anibal Chaudhary [facility] Start: 12-24-2022 End: 12-24-2022 Evaluation and management of inpatient MD Anibal Chaudhary Work Phone: [facility] [place] [facility] Work Phone: Start: 12-24-2022 End: 12-24-2022 observation encounter MD Anibal Chaudhary Work Phone: [facility] Work Phone: Start: 12-24-2022 End: 12-24-2022 ambulatory Petr Nealomar Facility:[facility] Start: 12-20-2022 End: 12-20-2022 ambulatory Anibal Chaudhary Other [employer] Other Start: 12-20-2022 Telephone encounter Anibal Chaudhary [facility] Start: 11-15-2022 End: 11-15-2022 ambulatory Anibal Chaudhary Other [employer] Other Start: 11-15-2022 Office outpatient vi sit 15 minutes Anibal Chaudhary [facility] Start: 09-12-2022 End: 09-12-2022 ambulatory Anibal Chaudhary Other [employer] Other Start: 09-12-2022 Office outpatient vi sit 25 minutes Anibal Chaudhary [facility] Start: 09-12-2022 Telephone encounter Anibal Chaudhary [facility] Start: 07-04-2022 End: 07-04-2022 ambulatory Anibal Chaudhary Other [facility] Other Start: 07-04-2022 Telephone encounter Anibal Chaudhary [facility] Start: 06-18-2022 End: 06-18-2022 ambulatory Virgliio Mckeon Other [facility] Other Start: 06-18-2022 Telephone encounter Virgilio Mckeon [facility] Start: 05-30-2022 End: 05-30-2022 ambulatory Anibal Chaudhary Other [employer] Other Start: 05-30-2022 Telephone encounter Anibal Chaudhary [facility] Start: 05-27-2022 End: 05-28-[address] DOCTOR VERAS Facility:H1 Start: 04-29-2022 End: 04-29-2022 ambulatory Anibal Chaudhary Other [employer] Other Start: 04-29-2022 Office outpatient vi sit 15 minutes Anibal Chaudhary [facility] Start: 04-29-2022 Telephone encounter Anibal Chaudhary [facility] Start: 02-11-2022 ambulatory Facility:[id number] Start: 02-11-2022 End: 02-11-2022 Patient encounter procedure Yany Amezcua [facility] Start: 01-07-2022 End: 01-26-2022 Pre-admission assessment Yany Amezcua [facility] Start: 11-20-2021 Adult health examination Anibal Chaudhary Other [employer] Other Start: 11-20-2021 Encounter for genera l adult medical examination without abnormal findings DR DOCTOR VERAS [facility] Start: 11-19-2021 End: 11-20-2021 ambulatory ANIBAL CHAUDHARY Facility:H1 Start: 11-19-2021 End: 11-20-2021 Encounter for general adult medical examination without abnormal findings DR DOCTOR VERAS Facility:H1 Start: 07-18-2021 End: 07-19-[address] DOCTOR VERAS Facility:H1 Start: 07-07-2020 End: 07-07-2020 Patient encounter procedure Anibal Chaudhary Work Phone: -MRI Main [facility] Procedures Date Procedure Procedure Detail Performing Clinician Start: 05-26-2024 Follow-up visit DARY AD Start: 05-20-2024 Follow-up visit DARY SA AD Start: 02-05-2024 Follow-up visit DARY SA AD Start: 01-08-2024 Follow-up visit DARY SA AD Start: 12-03-2023 Follow-up visit DARY MEREDITH AD Start: 06-13-2023 Follow-up visit DARY MEREDITH AD Start: 07-07-2020 MRI of head Anibal cuba Work Phone: Plan of Treatment Date Care Activity Detail Author Start: 12-03-2023 [facility] Start: 11-03-2023 [facility] Start: 07-08-2023 [facility] Start: 12-24-2022 [facility] Start: 12-24-2022 Hospital admission [facility] Start: 12-24-2022 [facility] Start: 12-24-2022 Sleep disorder assessment [facility] 25-hydroxyvitamin D2 [Mass/volume] in Serum or Plasma [facility] 25-hydroxyvitamin D3 [Mass/volume] in Serum or Plasma [facility] 25-Hydroxyvitamin D3+25-Hydroxyvitamin D2 [Mass/volume] in Serum or Plasma [facility] Comprehensive metabo lic 2000 panel - Serum or Plasma [facility] Glucose measurement estimated from glycated hemoglobin [facility] Patient referral [facility] Work Phone: Thyrotropin [Units/v olume] in Serum or Plasma [facility] Thyroxine (T4) free index in Serum or Plasma by calculation [facility] Thyroxine measurement [facility] Triiodothyronine (T3 ) [Mass/volume] in Serum or Plasma [facility] Triiodothyronine res in uptake (T3RU) in Serum or Plasma [facility] Payers Date Payer Category Payer Unknown [id number] 2022 Self-pay [id number] 1960 Unknown [id number] 2.16. [id number] 1960 Unknown [id number] 2.16.84 0.1.636542.3.579.2.593 1960 Unknown [id number] 2.16.84 0.1.073395.3.579.2.593 1960 Unknown [id number] 2.16.84 0.1.856670.3.579.2.593 1960 Unknown [id number] 2.16.84 0.1.536143.3.579.2.593 1960 Unknown [id number] 2.16.84 0.1.098119.3.579.2.1259 1960 Unknown [id number] 2.16.84 0.1.188453.3.579.2.1259 1960 Unknown [id number] 2.16.84 0.1.223535.3.579.2.1259 1960 Unknown [id number] 2.16.84 0.1.369902.3.579.2.1259 1960 Unknown [id number] 2.16.8 40.1.669629.3.579.2.727 1960 Unknown [id number] 2.16.8 40.1.870448.3.579.2.727 1959 Unknown [id number] Private Health Insurance [id number] Unknown [id number] Unknown [id number] 2.16.8 40.1.567949.3.579.2.531 Unknown [id number] 2.16.8 40.1.086259.3.579.2.531 Unknown [id number] 2.16.8 40.1.727227.3.579.2.531 Unknown [id number] 2.16.8 40.1.490001.3.579.2.531 Unknown [id number] 2.16.8 40.1.341184.3.579.2.531 Unknown [id number] 2.16.8 40.1.595249.3.579.2.531 Unknown [id number] 2.16.8 40.1.208537.3.579.2.531 Social History Date Type Detail Facility Tobacco smoking stat us [facility] Unknown if ever smoked [facility] Start: 1960 Sex Assigned At Female [facility] Tobacco smoking status No Smokin g Status Entered [facility] Sex Assigned At Female [facility] Start: 12-24-2022 End: 12-24-2022 Tobacco smoking status RIIS Current some day smoker [facility] Start: 12-27-2022 End: 12-27-2022 Tobacco smoking status NHIS Smoker (finding) [facility] Start: 05-28-2024 Sex Female (finding) [facility] Goals Date Patient Goal Desired Activity /State Functional Status Date Assessment Result Facility 12-24-2022 Functional status Patient at Baseline [facility] Work Phone: Mental Status Date Assessment Result Facility 12-24-2022 Cognitive function Cognitive Sta tus Patient at Baseline [facility] Work Phone: Clinical Notes 04-29-2022 to 05-26-2024 Note Date & Type Note Facility 05-26-2024 Note [facility] 05-26-2024 Note [facility] 05-20-2024 Note [facility] 05-20-2024 Note [facility] 05-13-2024 Note [facility] 05-13-2024 Note [facility] 05-12-2024 Note [facility] 05-12-2024 Note [facility] 05-12-2024 Note Case was discussed w ith the ADEBAYO on 05/11/2024. I agree with the history, physical, assessment, and plan of care. I discussed the findings and therapeutic plan. I agree with the documentation, except for any updates below. Rao Foster MD [facility] 05-12-2024 Note [facility] 05-12-2024 Note Per primary team to consider addition of CPAP/BiPAP nightly [facility] 05-12-2024 Note Continue with home m edication, levothyroxine 50 mcg tablet p.o. daily [facility] 05-12-2024 Note Continue diuresis as above Supplemental O2 at 2-4 L/min via nasal cannula as needed [facility] 05-12-2024 Note Insulin lispro per s liding scale before meals and at bedtime. Continue home medication Januvia 100 mg p.o. daily [facility] 02-05-2024 Note [facility] 01-08-2024 Note [facility] 12-30-2023 Note [facility] 12-30-2023 Note [facility] 12-30-2023 Note Occupational Therapy Name: Ruma Carlton Date of : 1960 Today's Date: 12/30/23 Pt is unable to be seen for therapy at this time secondary to Discharging @ 1530. Check No Charge Time attempted: 1325 [facility] 12-30-2023 Note [facility] 12-30-2023 Note [facility] 12-29-2023 Note [facility] 12-29-2023 Note [facility] 12-29-2023 Note [facility] 12-29-2023 Note [facility] 12-29-2023 Note [facility] 12-29-2023 Note Addendum created 10/14 by Mario Bermudez MD Attestation recorded in Intraprocedure (Anesthesia), Intraprocedure Attestations filed (Anesthesia), Intraprocedure Event edited, Intraprocedure Staff edited, Intraprocedure Staff edited (Anesthesia) [facility] 12-29-2023 Note [facility] 12-28-2023 Note [facility] 12-28-2023 Note CTS: Patient seen and examined post left pigtail catheter removal I concur with the xray report and do not see any pneumothorax. Lungs CTA bilaterally Dressing dry and intact Satting 98% on room air Updated daughter at bedside. [facility] 12-28-2023 Note Sent updates to [facility]. They have pre-cert which is good through Friday 12/29. Awaiting medical readiness. [facility] 12-28-2023 Note [facility] 12-28-2023 Note [facility] 12-27-2023 Note [facility] 12-27-2023 Note [facility] 12-27-2023 Note [facility] 12-27-2023 Note [facility] 12-26-2023 Note [facility] 12-26-2023 Note [facility] 12-26-2023 Note Updates sent to [facility]. Patient still has chest tube in place. Awaiting Pulmonary to see patient today. SW continues to follow. [facility] 12-26-2023 Note [facility] 12-26-2023 Note [facility] 12-26-2023 Note [facility] 12-25-2023 Note [facility] 12-25-2023 Note [facility] 12-25-2023 Note [facility] 12-25-2023 Note [facility] 12-25-2023 Note [facility] 12-25-2023 Note [facility] 12-25-2023 Note [facility] 12-24-2023 Note [facility] 12-24-2023 Note [facility] 12-24-2023 Note Awaiting precert for RHNWO. Per CT Surgery patient should be medically ready for discharge on 12/24. SW following. [facility] 12-24-2023 Note A. Satisfactory for evaluation. Examination of the ThinPrep slide and cell block reveals reactive mesothelial cells in a background of marked acute inflammation. [facility] Comment on above: Performed By: #### L AB13 ####[facility] (RUPINDERJENNIFER)[facility][note 3] [place] [address] 12-24-2023 Note [facility] 12-24-2023 Note [facility] 12-24-2023 Note [facility] 12-24-2023 Note [facility] 12-23-2023 Note [facility] 12-23-2023 Note [facility] 12-23-2023 Note [facility] 12-23-2023 Note [facility] 12-22-2023 Note [facility] 12-22-2023 Note [facility] 12-22-2023 Note [facility] 12-22-2023 Note [facility] 12-22-2023 Note [facility] 12-22-2023 Note [facility] 12-21-2023 Note [facility] 12-20-2023 Note [facility] 12-20-2023 Note [facility] 12-20-2023 Note [facility] 12-19-2023 Note [facility] 12-19-2023 Note [facility] 12-19-2023 Note [facility] 12-19-2023 Note [facility] 12-19-2023 Note [facility] 12-18-2023 Note [facility] 12-18-2023 Note [facility] 12-18-2023 Note [facility] 12-18-2023 Note Occupational Therapy Name: Ruma Carlton Date of : 1960 Today's Date: 12/18/23 Pt is unable to be seen for therapy at this time secondary to Pt currently off floor for testing Check No Charge Time attempted: 1407 [facility] 12-18-2023 Note [facility] 12-18-2023 Note Echo attempted bedsi de @10:45 am. Patient in chair, called RN but busy, unable to get patient back in bed for test. Will try again later. [facility] 12-18-2023 Note [facility] 12-18-2023 Note [facility] 12-17-2023 Note [facility] 12-17-2023 Note [facility] 12-17-2023 Note [facility] 12-17-2023 Note [facility] 12-16-2023 Note [facility] 12-16-2023 Note [facility] 12-16-2023 Note [facility] 12-15-2023 Note [facility] 12-15-2023 Note [facility] 12-15-2023 Note [facility] 12-15-2023 Note [facility] 12-15-2023 Note [facility] 12-14-2023 Note [facility] 12-13-2023 Note [facility] 12-13-2023 Note [facility] 12-12-2023 Note [facility] 12-12-2023 Note [facility] 12-12-2023 Note [facility] 12-12-2023 Note [facility] 12-11-2023 Note [facility] 12-11-2023 Note [facility] 12-11-2023 Note [facility] 12-10-2023 Note [facility] 12-10-2023 Note [facility] 12-10-2023 Note [facility] 12-10-2023 Note [facility] 12-09-2023 Note [facility] 12-09-2023 Note [facility] 12-09-2023 Note [facility] 12-09-2023 Note [facility] 12-08-2023 Note [facility] 12-08-2023 Note [facility] 12-08-2023 Note [facility] 12-08-2023 Note [facility] 12-08-2023 Note [facility] 12-08-2023 Note [facility] 12-07-2023 Note [facility] 12-07-2023 Note [facility] 12-07-2023 Note [facility] 12-06-2023 Note [facility] 12-06-2023 Note Case was discussed w ith the ADEBAYO on 12/05/2023. I agree with the history, physical, assessment, and plan of care. I discussed the findings and therapeutic plan. I agree with the documentation, except for any updates below. Gregory MD Adriana [facility] 12-04-2023 Note Chest tightness and LOPEZ will plan for cardiac cath in light of severe coronary calcifications noted, DM, HTN, HPL, abnormal ECG [facility] 12-04-2023 Note Diabetes is managed by PCP Benjamine [facility] 12-04-2023 Note [facility] 12-04-2023 Note Managed per PCP Recommended weight loss [facility] 12-03-2023 Note [facility] 12-03-2023 Note [facility] 06-13-2023 Note [facility] 02-11-2023 Evaluation note Encounter Date Diagnosis Assessment Notes Jan, Acute pain of right hip (ICD-10 - M25.551) [facility] Other 10-06-2023 Evaluation note* Encounter Date Diagnosis [...] monitor results and followup in 3-4 weeks. [facility] Other 10-04-2023 Evaluation note* Encounter Date Diagnosis Assessment Notes Treatment Notes Treatment Clinical Notes Dec, Depressive disorder (ICD-10 - F32.A) [facility] Other 10-03-2023 History and physical note Author Froilan Brown [facility] December 24, 2022 4:06am Note Date/Time December 24, 2022 3: 58am [facility] [address] [place] [address] Hospitalist H&P Signed Patient: Ruma Carlton MR#: [id number] : 1960 Acct:[id number] Age/Sex: 62 / F Adm Date: 3 Loc: Room: [address] [place] [address] Type: ADM IN Attending Dr: Froilan Brown MD Copies to: MD Anibal Mosquera MD~ HPI DATE OF EXAMINATION: 12/24/22 CHIEF COMPLAINT: fall HISTORY OF PRESENT ILLNESS: The patient is a 62 year old woman with a history of HTN, DVT/PE on xarelto, POTS, NIDDM2, paroxysmal SVT who presented to [place] ED after a fall. Per the patient [...] got up from sleeping to walk to [facility] and fell- pt reports she felt wobbly after taking the flexeril. shedid not lose consciousness or feel dizzy and denies any chest pain or shortness of breath. Pt's right hip pain worsened over the course of Friday so she went to [place] ER for evaluation on arrival there vital [...] feels improved after she got tylenol at [place]- the patient is somewhat irritated at being [...] were negative except as noted in the [facility] Medical History Apnea Arthritis Back pain [...] thrombosis): (5) Hyponatremia: Plan: mild (126 at [place])- ?medication related Plan - admit to medicine - monitor on telemetry - restart home medications - will check STAT troponin now. if it is markedly increased compared to at [place], would ask cardiology to see pt. if [...] 1 Documented By: Froilan Brown MD 12/24/22 0352 Signed By: <Electronically signed by Froilan Brown MD> 12/24/22 0408 [facility] Work Phone: 1(926) 976-230509-29-2023 Evaluation note* Encounter Date Diagnosis Assessment Notes Treatment Notes Treatment Clinical Notes Nov, Depressive disorder (ICD-10 - F32.A) [facility] Other 08-25-2023 Evaluation note* Encounter Date Diagnosis Assessment Notes Treatment Notes Treatment Clinical Notes Oct, Depressive disorder (ICD-10 - F32.A) Mood improved. 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 She hasn't rec'd the midodrine yet, but will start it and followup w [facility] cardio [facility] Other 06-22-2023 Evaluation note* Encounter Date Diagnosis Assessment Notes [...] the past (years ago). Requests a refill. [id number] Other 02-06-2023 Evaluation note* Encounter Date Diagnosis [...] ENT eval if area does not resolve. 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 Other Evaluation note* Diagnosis Onset Date Resolution Status Elevated troponin acute Fall acute Hyponatremia acute Personal history of DVT (deep vein thrombosis) acute Right hip pain acute [facility] Work Phone: Evaluation noteNo assessment information available [facility] Work Phone: Evaluation note* Diagnosis Onset Date Resolution Status Anxiety acute Bilateral primary osteoarthritis of knee acute Depression acute Right hip pain acute [facility] Work Phone: Evaluation note* Diagnosis Onset Date Resolution Status Abnormal TSH acute Arthritis, rheumatoid acute Lower extremity edema acute Urinary frequency acute [facility] Work Phone: Evaluation note* Diagnosis Onset Date Resolution Status Abnormal TSH acute Arthritis, rheumatoid acute Lower extremity edema acute Urinary frequency acute Abnormal TSH acute Diabetes mellitus, type 2 ac la posta Hypertension acute [facility] Work Phone: Evaluation note* Diagnosis Onset Date Resolution Status Abnormal TSH acute Arthritis, rheumatoid acute Lower extremity edema acute Urinary frequency acute Abnormal TSH acute Arthritis, rheumatoid acute Diabetes mellitus, type 2 ac la posta Hypertension acute [facility] Work Phone: Evaluation note* Diagnosis Onset Date Resolution Status Abnormal TSH acute Arthritis, rheumatoid acute Diabetes mellitus, type 2 ac la posta Hypertension acute [facility] Work Phone: History general Narrative - [...] rele ase 02/2022 Hospitalization History see above [facility] Other [facility] general Narrative - Reported* Type Description Date [...] rele ase 02/2022 Hospitalization History see above [facility] Other Hospital Discharge instructions No data available for this section [facility] No data available for this section [facility] Author Petr Kowalski [facility] December 24, 2022 11:58am Note Date/Time December 24, 2022 11 :58am [facility] [address] [place], [place] [id number] Hospitalist Progress Note Signed Patient: Ruma Carlton MR#: [id number] : 1960 Acct:[id number] Age/Sex: 62 / F Adm Date: 3 Loc: Room: [address] [place] [address] Type: ADM INOo Attending Dr: Petr Kowalski MD Copies to: ~ Date of Service: 12/24/2022 Subjective Subjective Narrative: The patient is a 62 year old woman with a history of HTN, DVT/PE on xarelto, POTS, NIDDM2, paroxysmal SVT who presented to [place] ED after a fall. Per the patient [...] got up from sleeping to walk to [facility] and fell- pt reports she felt wobbly after taking the flexeril. shedid not lose consciousness or feel dizzy and denies any chest pain or shortness of breath. Pt's right hip pain worsened over the course of Friday so she went to [place] ER for evaluation On arrival there vital [...] feels improved after she got Tyl[place]ol at [place]- the patient is somewhat irritated at being [...] to the fall. Her CT head at [place] was unremarkable for ICH patient remained stable [...] 08:59 50 mg DAILY SANAZ Administration Pyridostigmine [place] 120 mg 12/24/22 09:00 12/24/22 08:36 Pyridostigmine [place] 60 Mg Tablet PO 12/24/23 08:59 120 [...] thrombosis): (5) Hyponatremia: Plan: mild (126 at [place])- ?medication related Plan -Repeat Troponin here WNL. Sodium level WNL -CT head done at [place] with no evidence of intracranial bleed. Patient remained stable with no focal deficits -X-ray of the hip done at [place] with no evidence of fracture dislocation -Patient [...] <Electronically signed by Petr Kowalski MD> 12/24/22 1158 [facility] Work Phone: Summary Purpose Family History Relationship Condition Age at Onset Recorded Date/T [...] neoplasm Unknown History of stroke Unknown Unknown Relationship Condition Age at Onset Recorded Date/T karie mother Malignant neoplasm of breast Unknown Cerebrovascular accident (CVA) Unknown father Diabetes mellitus Unknown father Unknown Hypertension Unknown Chronic kidney disease Unknown family member Unknown mother Malignant neoplasm Unknown History of stroke Unknown Unknown Advance Directives Advance Directive Response Recorded Date/ Time Advance [...] Arthritis, rheumatoid Lower extremity edema Urinary frequency Chief Complaint weight gain, swellin g hand and feet FMLA follow up Reason for Visit Abnormal TSH Arthritis, rheumatoid Lower extremity edema Urinary frequency Abnormal TSH Diabetes mellitus, type 2 Hypertension Chief Complaint weight gain, swellin g hand and feet FMLA follow up R7. I10 E11.9 Reason for Visit Abnormal TSH Arthritis, rheumatoid Lower extremity edema Urinary frequency Abnormal TSH Arthritis, rheumatoid Diabetes mellitus, type 2 Hypertension Chief Complaint FMLA follow up R7. I10 E11.9 Reason for Visit Abnormal TSH Arthritis, rheumatoid Diabetes mellitus, type 2 Hypertension Chief Complaint FMLA follow up R79.89 I10 E11.9 M13.0 R76.0 Z79.899 Q3M R06.09 Reason for Visit Abnormal TSH Arthritis, rheumatoid Diabetes mellitus, type 2 Hypertension Chief Complaint FMLA follow up R79.89 I10 E11.9 M13.0 R76.0 Z79.899 Q3M R06.09 R06.9 Amb Documentation CC Adult Risk Stratification [facility]:CABG-HIGH RISK Reason for Visit Abnormal TSH Arthritis, rheumatoid Diabetes mellitus, type 2 Hypertension Chief Complaint Admit Date Amb Documentation May 17, 2024 1:57pm [facility]; heart failure-HIGH RISK May 28, 2024 11:25am Additional Source Comments INFORMATION SOURCE (unrecogn ized section and content) DATE CREATED AUTHOR 08/29/2018 [facility] [place] DATE CREATED AUTHOR AUTHOR'S ORGANIZ ATION 03/20/2022 [facility] DATE CREATED AUTHOR AUTHOR'S ORGANIZ ATION 05/29/2022 [facility] p[facility] DATE CREATED AUTHOR AUTHOR'S ORGANIZ ATION 06/05/2023 [facility] DATE CREATED AUTHOR AUTHOR'S ORGANIZ ATION 08/29/2023 [facility] DATE CREATED AUTHOR AUTHOR'S ORGANIZ ATION 12/16/[address] [facility] DATE CREATED AUTHOR AUTHOR'S ORGANIZ ATION 05/28/2024 [facility] Patient Care team informatio n (unrecognized section and content) Team Status: Active Member Role Status Dates NON STAFF Primary Care Provider Active Team Status: Active Member Role Status Dates NON STAFF Primary Care Provider Active Start: May 10, 2024 Prosper Kingston DO Attending Provider Active Start : May 10, 2024 Team Status: Active Member Role Status Dates NON STAFF Primary Care Provider Active Start: May 11, 2024 Denis Reid MD Attending Provider Active Star t: May 11, 2024 Team Status: Active Member Role Status Dates NON STAFF Primary Care Provider Active Start: May 11, 2024 End: May 11, 2024 Virgilio Mckeon DO Attending Provider Active Sta rt: May 11, 2024 End: May 11, 2024 Shaikh Sheila MD Referring Provider Active Sta rt: May 11, 2024 End: May 11, 2024 Team Status: Active Member Role Status Dates NON STAFF Primary Care Provider Active Start: May 12, 2024 Virgilio Mckeon DO Attending Provider Active Sta rt: May 12, 2024 Team Status: Active Member Role Status Dates NON STAFF Primary Care Provider Active Start: May 17, 2024 Iris Smith CMA Attending Provider Active Start: May 17, 2024 Team Status: Active Member Role Status Dates NON STAFF Primary Care Provider Active Start: May 20, 2024 Anibal Chaudhary MD Attending Provider Active St art: May 20, 2024 Team Status: Inactive Member Role Status Dates NON STAFF Primary Care Provider Active Start: May 28, 2024 End: May 28, 2024 Anibal Chaudhary MD Attending Provider Active St art: May 28, 2024 End: May 28, 2024 Team Status: Active Member Role Status Dates Anibal Chaudhary MD Primary Care Provider Active Team Status: Active Member Role Status Dates Anibal Chaudhary MD Primary Care Provider Active Start: September 07, 2023 Michael Luis MD Attending Provider Active St art: September 07, 2023 Team Status: Inactive Member Role Status Dates Anibal Chaudhary MD Primary Care Provide r, Attending Provider Active Start: October 27, 2023 End: October 27, 2023 Team Status: Inactive Member Role Status Dates Anibal Chaudhary MD Primary Care Provide r, Attending Provider Active Start: November 03, 2023 End: November 03, 2023 Team Status: Inactive Member Role Status Dates Anibal Chaudhary MD Primary Care Provider Active Start: December 02, 2023 End: December 02, 2023 NIRANJAN Gonzalez Attending Provider Active Start: December 02, 2023 End: December 02, 2023 Team Status: Inactive Member Role Status Dates Anibal Chaudhary MD Primary Care Provider Active Froilan Brown MD Admit Provider Active Petr Kowalski MD Attending Provider Active Team Status: Inactive Member Role Status Dates Anibal Chaudhary MD Primary Care Provider Active [employer] Attending Provider Active Team Status: Inactive Member Role Status Dates Anibal Chaudhary MD Primary Care Provider Active Start: February 25, 2023 End: February 25, 2023 [employer] Attending Provider Active Sta rt: February 25, 2023 End: February 25, 2023 Team Status: Inactive Member Role Status Dates Anibal Chaudhary MD Primary Care Provide r, Attending Provider Active Start: May 08, 2023 End: May 08, 2023 Team Status: Inactive Member Role Status Dates Anibal Chaudhary MD Primary Care Provider Active Start: July 08, 2023 End: July 08, 2023 TOI LandC Attending Provider Active Start: July 08, 2023 End: July 08, 2023 Team Status: Active Member Role Status Dates Anibal Chaudhary MD Primary Care Provider Active Start: July 10, 2023 ANASTASIA Mir Attending Provider Active Start : July 10, 2023 Team Status: Inactive Member Role Status Dates Anibal Chaudhary MD Primary Care Provide r, Attending Provider Active Start: August 19, 2023 End: August 19, 2023 Team Status: Inactive Member Role Status Dates Gale Alarcon PLANNING FEEDER-C Attending Provider Active S tart: December 02, 2023 End: December 02, 2023 Team Status: Inactive Member Role Status Dates Gale Alarcon PLANNING FEEDER-C Attending Provider Active S tart: December 04, 2023 End: December 04, 2023 Team Status: Active Member Role Status Dates NON STAFF Primary Care Provider Active Team Status: Inactive Member Role Status Dates Gale Alarcon PLANNING FEEDER-C Attending Provider Active S tart: December 04, 2023 End: December 04, 2023 NON STAFF Primary Care Provider Active Start: December 04, 2023 End: December 04, 2023 Team Status: Active Member Role Status Dates NON STAFF Primary Care Provider Active Start: January 08, 2024 Iris Smith CMA Attending Provider Active Start: January 08, 2024 Team Status: Active Member Role Status Dates NON STAFF Primary Care Provide r, Attending Provider Active Start: January 21, 2024 Team Status: Inactive Member Role Status Dates NON STAFF Primary Care Provider Active Start: January 22, 2024 End: January 22, 2024 Anibal Chaudhary MD Attending Provider Active St art: January 22, 2024 End: January 22, 2024 Team Status: Active Member Role Status Dates NON STAFF Primary Care Provider Active Start: May 10, 2024 Prosper Kingston DO Attending Provider Active Start : May 10, 2024 Team Status: Active Member Role Status Dates NON STAFF Primary Care Provider Active Start: May 11, 2024 Denis Reid MD Attending Provider Active Star t: May 11, 2024 Team Status: Active Member Role Status Dates NON STAFF Primary Care Provider Active Start: May 11, 2024 End: May 11, 2024 Virgilio Mckeon DO Attending Provider Active Sta rt: May 11, 2024 End: May 11, 2024 Shaikh Sheila MD Referring Provider Active Sta rt: May 11, 2024 End: May 11, 2024 Team Status: Active Member Role Status Dates NON STAFF Primary Care Provider Active Start: May 12, 2024 Virgilio Mckeon DO Attending Provider Active Sta rt: May 12, 2024 Team Status: Active Member Role Status Dates NON STAFF Primary Care Provider Active Start: May 17, 2024 Iris Smith CMA Attending Provider Active Start: May 17, 2024 Team Status: Active Member Role Status Dates NON STAFF Primary Care Provider Active Start: May 20, 2024 Anibal Chaudhary MD Attending Provider Active St art: May 20, 2024 Team Status: Inactive Member Role Status Dates NON STAFF Primary Care Provider Active Start: May 28, 2024 End: May 28, 2024 Anibal Chaudhary MD Attending Provider Active St art: May 28, 2024 End: May 28, 2024 REASON FOR VISIT (unrecogniz ed section and [...] BE BASED ON THE PRIMARY CLINICAL RECORDS. [facility] [employer] provides no warranty or guarantee of the accuracy or completeness of information in this document.
[2024-06-11 17:21] LABS: Calcium 9.5 mg/dL (8.5-10.1); Carbon Dioxide 32.6 mmol/L (21.0-32.0); Chloride 99 mmol/L (98-107); Estimated GFR (African America 49 (>=60 mL/min/1.73m^2); Estimated GFR (Non-African Ame 40 (>=60 mL/min/1.73m^2); Glucose 200 mg/dL (74-106); Potassium 4.6 mmol/L (3.5-5.1); Sodium 137 mmol/L (136-145)
== END 2024-06-11 16:48 | disposition home or self-care (01) ==
LOC: LAB 16:47
PROVIDERS: PCP Family Medicine; Visit Provider Nurse Practitioner Family
DX: I50.43 Acute on chronic combined systolic (congestive) and diastolic (congestive) heart failure (principal)
CPT/HCPCS: 36415; 80048

== ENCOUNTER 2024-07-01 09:00 | Outpatient (OUT) | payer OTHER, SELFPAY ==
--- NOTE | 2024-07-01 | PCN_ITS ---
CARDIAC STRESS TEST Requesting Physician: Dr. Randall Procedure Date: 07/01/2024 LEXISCAN EKG STRESS TEST INDICATION FOR THE TEST: Chest pain and shortness of breath. The test was discussed with the patient in details, including risks and benefits, and she was agreeable to proceed. Resting 12-lead EKG showed sinus bradycardia, heart rate 50 beats per minute, incomplete right bundle branch block, no significant T or ST changes. Resting blood pressure 134/78 mm/Hg. Lexiscan 0.4 mg was injected intravenously and the patient was monitored for a few minutes. Peak heart rate 74 beats per minute, which represents 46% of age predicted maximum heart rate and peak blood pressure 144/78 mm/Hg. The patient did not have any symptoms during the test. EKG throughout the test did not show significant T or ST changes or any arrhythmias. CONCLUSION: 1. Negative Lexiscan EKG stress test for ischemia. 2. The nuclear perfusion images result will be reported separately. [facility]ITALTeresa
--- NOTE | 2024-07-01 10:30 | NM_ITS ---
Patient Name: NICOLAS HARRIS MR#: [id number] : 1960 Exam Date: 07/01/2024 Ordering Doctor: DARRYL ARGUETA CNP RADIOLOGY REPORT PROCEDURE: NM NICOLAS PERF SPECT REST STR COMPARISON: None. INDICATIONS: CHEST PAIN, SHORTNESS OF BREATH TECHNIQUE: Exam Description: Stress/Rest two day protocol gated SPECT Rest Imagin.7 mCi Tc-99m Cardiolite IV on 07/01/2024 Stress Imaging 25.4 mCi Tc-99m Cardiolite IV on 07/02/2024 Exercise Protocol: 0.4 mg Lexiscan given IV Heart Rate (bpm): Rest: 56 Max: 74 PMHR: 46 Blood Pressure: Rest: 134/78 Max: 134/78 Symptoms: Rest and peak stress ECG findings were pending, and the exercise portion of the study was pending per attending physician [facility]. For more details, please see separate cardiac stress test report. FINDINGS: QUALITY OF STUDY: Good PERFUSION DEFECT: LOCATION: Anteroapical SIZE: Moderate SEVERITY: Mild TYPE: Reversible WALL MOTION: Normal wall motion LV SIZE: 83 mL. TID / TCD: 1.3 LVEF: Calculated EF 78%. SUMMARY: Myocardial perfusion imaging study is ABNORMAL CONCLUSION: 1. Myocardial perfusion is abnormal with soft tissue attenuation 2. There is an anteroapical reversible perfusion defect suggestive of ischemia 3. Transient ischemic dilatation is seen; this may be associated with multivessel coronary artery disease, hypertensive heart disease and/or volume overload, and is a high-risk finding 4. Global left ventricular systolic function is normal Dictated by: Al Johnson M.D. on 07/05/2024 at 14:42 Approved by: Al Johnson M.D. on 07/05/2024 at 14:45
[2024-07-02] MEDS: REGADENOSON 0.4 MG/5 ML SYRINGE IV (10:09)
--- NOTE | 2024-07-02 10:10 | PC.NURSE ---
Nursing Note Cardiac Stress Test Reviewed: Medication, allergies and patient history reviewed. Stress Test: [ x] Patient tolerated stress test well. [ ] Patient unable to tolerate walking on treadmill. Switched to Lexiscan stress test. [ x] No chest pain noted per patient [ ] Chest pain that resolved prior to leaving stress lab. [x ] No dyspnea noted. [ ] Dyspnea that resolved prior to leaving stress lab. [ x] Patient left stress lab asymptomatic and hemodynamically stable. [ ] Patient taken to the Emergency Room due to non-resolving symptoms following stress test. [ ] Patient achieved target heart rate. [ ] Patient unable to achieve target heart rate. [ ] Aminophylline administered as reversal agent to Lexiscan (Regadenoson). [ ] Nitro administered. Nursing Comments:
--- OUTSIDE RECORDS SUMMARY | 2024-07-08 11:12 | XMS_ITS | CCD ---
Author Organization [facility] Care Team Providers Care Salesperson [employer] Name Role Phone Anibal Chaudhary Primary Care Provider Sidra Potter Attending Provider [phone] ANIBAL CHAUDHARY Primary Care Physician Anibal Chaudhary [...] Provider MD Anibal Chaudhary Primary Care Provider YAYN AMEZCUA Attending Unavailable POCOSYANY Referring Unavailable POCOSYANY Referring Unavailable POCOS, YANY Jc Attending Unavailable MD Anibal Chaudhary Primary Care Provider NIRANJAN Wagoner Attending Provider [phone] Pocbernardo, Yany Jc Attending Unavailable PocYany chang Referring Unavailable ANIBAL CHAUDHARY Consulting Unavailable Yany Amezcua Admitting Unavailable Pocbernardo, Yany Jc Attending Unavailable Yany Amezcua Referring Unavailable MD ANIBAL CHAUDHARY Consulting Unavailable MD Anibal Chaudhary Primary Care Provider MD Anibal Chaudhary Attending Provider ObTOI conleyC [...] Chaudhary Attending Unavailable ObmundoeyBarby miller Admitting Unavailable ObumndoeyBarby miller Attending Unavailable Chaparro, Anibal E Primary Care Unavailable Agnes, Gale Admitting Unavailable Agnes, Gale Attending Unavailable NON STAFF Primary Care Provider Unavailabl DARY Candelario Attending Unavailable HORANI, EMILIE Admitting Unavailable HORANI, EMILIE Referring Unavailable ALAN PATEL Attending Unavailable ALAN PATEL Admitting Unavailable DAYA JOHNSON Attending Unavailable AGNES, GALE Attending Unavailable MANSI BUTTS Referring Unavailable JULIEN, Referring Unavailable AGUEDA [place] Referring Unavailabl e PATELALAN LORENZANA Referring Unavailable LORI VICTORIAA Referring Unavailable AGUEDA [place] Referring Unavailabl e UMAIR PEREYRA Referring Unavailable ALAN PATEL Referring Unavailable RHONDA BARNES Referring Unavailable AGUEDA [place] Referring Unavailabl e AGUEDA [place]A Referring Unavailabl e PATELALAN LORENZANA Referring Unavailable RIAN BUTTS Referring Unavailable AGUEDA [place] Referring Unavailabl e AGUEDA [place]A Referring Unavailabl e CAMILOYASH MCARTHUR Referring Unavailable ZENZ, KENDELL Referring Unavailable ZENZ, KENDELL Referring Unavailable JULIEN, Referring Unavailable MURRIETAJOSÉ MIGUEL Referring Unavailable PATEL, ALAN Referring Unavailable PATEL, ALAN Referring Unavailable KULAKOWSKI, AGUEDA Miramontes Referring Unavailabl e JULIEN, Referring Unavailable KULAKOWSKI, AGUEDA Miramontes Referring Unavailabl e JULIEN, Referring Unavailable CAMERON, RHONDA Referring Unavailable CAMERON, RHONDA Referring Unavailable KULAKOWSKI, AGUEDA Miramontes Referring Unavailabl e KULAKOWSKI, AGUEDA Miramontes Referring Unavailabl e ALGHOTHANI, MOHAMAD Referring Unavailable DARRYL PEDRAZA Attending Unavailable KARON ADAMS Attending Unavailable JULIEN, Referring Unavailable MILODARRYL Attending Unavailable JULIEN, Referring Unavailable KULAKOWSKI, AGUEDA Miramontes Referring Unavailabl e KULAKOWSKI, AGUEDA Miramontes Referring Unavailabl e JULIEN, DION Attending Unavailable JULIEN, Referring Unavailable PATEL, ALAN Referring Unavailable PATEL, ALAN Referring Unavailable Allergies Allergy Classification Reported Allergen(s) Allergy Type Date of Onset Reaction(s) Facility Unclassified (1 source) Allergy to substance [facility] (13 sources) Codeine Drug Allergy Unknown [employer] [facility] [employer] Other (20 sources) Metoclopramide Drug Allergy 05-08-19 24 Unknown, [facility] (13 sources) Sulfamethoxazole / Trimethoprim Drug Allergy Unknown [facility] [employer] Other (13 sources) Sulfonamides (Antibiotic) Drug allergy rash [facility] [employer] Other (12 sources) Codeine; Translations: [CODEINE] Drug Allergy 04-06-19 14 [facility] (1 source) Iothalamate Drug Allergy 04-06-19 14 [facility] (1 source) Morphine Drug Allergy 04-12-19 14 [facility] (1 source) Sulfonamides (Antibiotic) Drug allergy (disorder) 04-06-19 14 [facility] (5 sources) Codeine Drug Allergy 02-25-20 14 Unknown [employer] Other (14 sources) Sulfonamides (Antibiotic); Translations: [Sulfa (Sulfonamide Antibiotics)] Allergy to substance 03-11-20 14 Hives, Hives, rash [facility] (11 sources) Sulfamethoxazole; Translations: [sulfamethoxazole] Drug Allergy 05-08-19 24 [facility] (11 sources) Trimethoprim; Translations: [trimethoprim] Drug Allergy 05-08-19 [facility] (1 source) Codeine Drug Allergy 10-27-19 [facility] (1 source) Metoclopramide Drug Allergy 10-27-19 [facility] (1 source) Metoclopramide; Translations: [METOCLOPRAMIDE HCL] Drug Allergy 03-11-20 14 [facility] Repository Medications Current Medications Medication Drug Class(es) [...] tablets by mouth four times daily Pyridostigmine [place] 60 mg tablet Active 120 MG PO Four times daily December 24, 2022 12:00am Start: 12-24-2022 End: 05-08-2023 take 2 tablets by mouth twice daily Pyridostigmine [place] 60 mg Tablet Discontinued 120 MG PO Twice daily 0 December 24, 2022 12:00am May 08, 2023 4:09pm Start: 12-24-2022 take 120 mg by mouth four times daily Pyridostigmine [place] Active 120 MG PO Four times daily December 24, 2022 12:00am Start: 12-24-2022 End: 12-24-2022 Pyridostigmine [place] 180 m g Tablet Extended Release Discontinued 120 MG PO Daily December 24, 2022 12:00am December 24, 2022 8:13am Start: 12-24-2022 End: 12-24-2022 take 120 mg by mouth once daily Pyridostigmine [place] Discontinued 120 MG PO Daily December 24, 2022 12:00am December 24, 2022 8:13am Start: 12-24-2022 End: 05-08-2023 take 120 mg by mouth twice daily Pyridostigmine [place] Discontinued 120 MG PO Twice daily 0 December 24, 2022 12:00am May 08, 2023 4:09pm take 1 tablet by veronica th every four hours Pyridostigmine [place] 60 MG 1 tablet Orally every 4 [...] 6 hrs for 30 days Apr, Active [id number] 200 actuat albuterol 0.09 mg/actuat metered dose [...] Start: 09-12-2022 take 1 capsule by mo [facility] every twenty-four hours Temazepam 15 MG 1 [...] 4:10pm Start: 09-13-2022 take 1 tablet by [facility] three times daily as needed traMADol HCl [...] atherosclerosis and other heart disease (7 sources) Coronary arteriosclerosis; Translations: [Atherosclerotic heart disease of [place] coronary artery without angina pectoris] Onset: 4 01-29-2024 Chronic Diabetes mellitus with complications (16 sources) [...] hand] Chronic Other aftercare (1 source) Other care home (current) drug therapy; Translations: [OTH SNF CURRENT DRUG THERAPY] Onset: 3 Episodic Other [...] (1 source) Polydipsia; Translations: [Polydipsia] Episodic Other skin disorders (1 source) Disorder [...] [Pain in unspecified joint] Onset: 04-11-2016 Episodic Other screening for suspected conditions (not mental disorders or infectious disease) (20 sources) Raised cardiac enzyme or marker; Translations: [Other specified abnormal findings of blood chemistry] Onset: 12-24-2022 12-24-2022 Episodic Residual codes; unclassified (2 sources) Insomnia; Translations: [Insomnia, unspecified] Onset: 09-10-2018 Episodic Unclassified (2 sources) Lumbar pain M54.50 Unclassified (4 sources) Depressive disorder F32.A Unclassified (1 source) Supraventricular tachycardia, unspecified; Translations: [Supraventricular tachycardia, unspecified] Onset: 12-05-2023 Results Test Name Value Interpretation Reference Range Facility 3607-07-2024 36 Per HAILE [place] P - patient needs scheduled for heart cath with Dr. Johnson s/p abnormal stress test performed on 07/01/2024. Patient made aware. [facility] Orders Only[facility] 07-06-2024 Orders Only [facility] 3606-24-2024 36 Spoke to patient and advised her that Francie Milo would like her to increase her spirolactone to 12.5 and have a BMP done in 1 month. Patient verbalized understanding. [facility] 06-15-2024 36 Darryl Pedraza CNP P Cardiology Clinical Support Pool Her labs show a slight bump in her kidney function. Would like her to go back to spironolactone 12.5mg daily. Follow up BMP in 1 month. Thank you Left message for patient to call back. [facility] 06-09-2024 36 Okay, lets order for a lexiscan stress test please. Please remind her to get follow up BMP since we increased her aldactone. Thank you [facility] 05-26-2024 37 *We are increasing spironolactone to 25mg daily *Have lab work done around 06/02/2024 to check kidney function with the increase in spironolactone. *We will call you in 1-2 weeks to see how you are feeling. *Follow-up after event monitor comes off. [facility] 05-20-2024 37 [facility] Estimated glomerular filtrat ion rate (GFR) non- Americanon 05-20-2024 GFR/1.73 sq M.predicted among non-blacks MDRD (S/P/Bld) [Vol rate/Area] Estimated glomerular filtration rate (GFR) non- Low >=60 mL/min/1.73 m 2 [facility] Laboratory - Chemistry and C hemistry - challengeon 05-20-2024 Calcium [Mass/Vol] 9.4 mg/dL 8.5-10.1 [facility] Chloride [Moles/Vol] 102 mmol/L 98-107 [facility] CO2 [Moles/Vol] 30.4 mmol/L 21.0-32.0 [facility] Creatinine [Mass/Vol] 1.12 mg/dL High 0.55-1.02 [facility] GFR/1.73 sq M.predicted MDRD (S/P/Bld) [Vol rate/Area] 60 mL/min/{1.73_m2} >=60 mL/min/1.73 m 2 [facility] Glucose [Mass/Vol] 158 mg/dL High 74-106 [facility] Potassium [Moles/Vol] 3.8 mmol/L 3.5-5.1 [facility] Sodium [Moles/Vol] 140 mmol/L 136-145 [facility] Urea nitrogen [Mass/Vol] 22.0 mg/dL High 7.0-18.0 [facility] Urea nitrogen/Creatinine [Mass ratio] 19.6 mg/mg [facility] Serum or plasma anion gap de terminationon 05-20-2024 Anion gap [Moles/Vol] Serum or plasma an ion gap determination [facility] Telephoneon 05-18-2024 Telephone [facility] Documentationon 05-17-2024 Documentation Normal [facility] Telephoneon 05-17-2024 Telephone Normal [facility] 36on 05-15-2024 36 Normal [facility] Telephoneon 05-15-2024 Telephone Normal [facility] 30on 05-14-2024 30 Normal [facility] 30 Normal [facility] BASIC METABOLIC PANELon 04-25 Anion gap [Moles/Vol] 14 mmol/L Normal 7-20 [facility] Comment on above: Performed By: #### L [id number] ####[facility] (BEAKER)[address] [place] [address] Calcium [Mass/Vol] 9.5 mg/dL Normal 8.6-10.3 [facility] Comment on above: Performed By: #### L [id number] ####[facility] (BEAKER)[address] [place] [place], [place] [address] Chloride [Moles/Vol] 104 mmol/L Normal 98-107 [facility] Comment on above: Performed By: #### L [id number] ####[facility] ([facility])[address] [place], [place] [address] CO2 [Moles/Vol] 23 mmol/L Normal 21-31 [facility] Comment on above: Performed By: #### L [id number] ####[facility] ([facility])[address] [place] [address] Creatinine [Mass/Vol] 1.04 mg/dL Normal 0.60-1.20 [facility] Comment on above: Performed By: #### L [id number] ####[facility] ([facility])[address] [place] [place] [address] GLOMERULAR FILTRATION RATE ML/MIN/1.73 SQ M.PREDICTED 60.8 mL/min/1.73m*2 Normal >60.0 [facility] Comment on above: Result Comment: The [facility]???s estimated glomerular filtration rate (eGFR) will no [...] By: #### L [id number] ####[facility] ([facility] [place] [address] Glucose [Mass/Vol] 128 mg/dL High 70-100 [facility] Comment on above: Performed By: #### L [id number] ####[facility] ([facility]ER)[address] [place] [address] Potassium [Moles/Vol] 4.5 mmol/L Normal 3.5-5.1 [facility] Comment on above: Performed By: #### L [id number] ####[facility] (BEAKER)[address] [place] [address] Sodium [Moles/Vol] 136 mmol/L Normal 136-145 [facility] Comment on above: Performed By: #### L [id number] ####[facility] (BEAKER)[address] [place] [address] Urea nitrogen [Mass/Vol] 23 mg/dL Normal 7-25 [facility] Comment on above: Performed By: #### L [id number] ####[facility] (BEAKER)[address] [place] [address] UREA NITROGEN/CREATININE (MASS RATIO) IN SER/PLAS 22.1 Normal [facility] Comment on above: Performed By: #### L [id number] ####[facility] (BEAKER)[address] [place] [place], [place] [address] CBCon 05-14-2024 Erythrocyte distribution width (RBC) [Ratio] 14.3 % Normal 11.5-15.0 [facility] Comment on above: Performed By: #### L [id number] ####[facility] (BEAKER)[address] [place] [address] ERYTHROCYTE MEAN CORPUSCULAR HEMOGLOBIN CONCENTRATION (G/DL) BY AUTOMATED 31.9 g/dL Low 32.0-35.0 [facility] Comment on above: Performed By: #### L [id number] ####[facility] (BEAKER)[address] [place] [address] Hematocrit (Bld) [Volume fraction] 45.8 % Normal 36.0-48.0 [facility] Comment on above: Performed By: #### L [id number] ####[facility] (BEAKER)[address] [place] [address] Hemoglobin (Bld) [Mass/Vol] 14.6 g/dL Normal 12.0-15.0 [facility] Comment on above: Performed By: #### L [id number] ####[facility] ([facility])[address] [place] [address] MCH (RBC) [Entitic mass] 29.1 pg Normal 27.0-33.0 [facility] Comment on above: Performed By: #### L [id number] ####[facility] ([facility])[address] [place] [place] [address] MCV (RBC) [Entitic vol] 91.4 fL Normal 82.0-98.0 [facility] Comment on above: Performed By: #### L [id number] ####[facility] ([facility])[address] [place] [place] [address] PLATELETS (10*3/UL) IN BLOOD AUTOMATED COUNT 256 10*3/uL Normal 150-400 [facility] Comment on above: Performed By: #### L [id number] ####[facility] ([facility])[address] [place] [place] [address] RBC (Bld) [#/Vol] 5.01 10*6/uL High 3.80-5.00 [facility] Comment on above: Performed By: #### L [id number] ####[facility] ([facility])[address] [place] [place] [address] WBC (Bld) [#/Vol] 6.81 10*3/uL Normal 4.00-10.60 [facility] Comment on above: Performed By: #### L [id number] ####[facility] ([facility])[address] [place] [place] [address] DSon 05-14-2024 DS Normal [facility] POCT GLUCOSE METER UNSOLICIT ED RESULTSon 05-14-2024 Glucose [Mass/Vol] 206 mg/dL High 70-105 [facility] Comment on above: Order Comment: Waive d Testing in the ED is performed under the ED CLIA certificate #[id number]. Result Comment: dcun dic Performed By: #### L [id number] ####[facility] ([facility])[address] [place] [address] Glucose [Mass/Vol] 146 mg/dL High 70-105 [facility] Comment on above: Order Comment: Waive d Testing in the ED is performed under the ED CLIA certificate #[id number]. Result Comment: [email or web address] Performed By: #### L [id number] ####[facility] ([facility]ER)[address] [place] [address] 30on 05-13-2024 30 Normal [facility] 30 Normal [facility] 30 Normal [facility] BASIC METABOLIC PANELon 04-25 Anion gap [Moles/Vol] 13 mmol/L Normal 7-20 [facility] Comment on above: Performed By: #### L [id number] ####[facility] ([facility]ER)[address] [place] [address] Calcium [Mass/Vol] 9.1 mg/dL Normal 8.6-10.3 [facility] Comment on above: Performed By: #### L [id number] ####[facility] ([facility]ER)[address] [place] [address] Chloride [Moles/Vol] 99 mmol/L Normal 98-107 [facility] Comment on above: Performed By: #### L [id number] ####[facility] ([facility])[address] [place] [address] CO2 [Moles/Vol] 29 mmol/L Normal 21-31 [facility] Comment on above: Performed By: #### L [id number] ####[facility] ([facility])[address] [place] [address] Creatinine [Mass/Vol] 1.29 mg/dL High 0.60-1.20 [facility] Comment on above: Performed By: #### L [id number] ####[facility] ([facility])[address] [place] [place] [address] GLOMERULAR FILTRATION RATE ML/MIN/1.73 SQ M.PREDICTED 46.9 mL/min/1.73m*2 Low >60.0 [facility] Comment on above: Result Comment: The [facility]???s estimated glomerular filtration rate (eGFR) will no [...] By: #### L [id number] ####[facility] ([facility])[address] [place] [address] Glucose [Mass/Vol] 135 mg/dL High 70-100 [facility] Comment on above: Performed By: #### L [id number] ####[facility] ([facility])[address] [place] [address] Potassium [Moles/Vol] 3.5 mmol/L Normal 3.5-5.1 [facility] Comment on above: Performed By: #### L [id number] ####[facility] ([facility])[address] [place] [address] Sodium [Moles/Vol] 137 mmol/L Normal 136-145 [facility] Comment on above: Performed By: #### L [id number] ####[facility] ([facility])[address] [place] [address] Urea nitrogen [Mass/Vol] 19 mg/dL Normal 7-25 [facility] Comment on above: Performed By: #### L [id number] ####[facility] ([facility])[address] [place] [address] UREA NITROGEN/CREATININE (MASS RATIO) IN SER/PLAS 14.7 Normal [facility] Comment on above: Performed By: #### L [id number] ####[facility] ([facility]ER)[address] [place] [address] POCT GLUCOSE METER UNSOLICIT ED RESULTSon 05-13-2024 Glucose [Mass/Vol] 161 mg/dL High 70-105 [facility] Comment on above: Order Comment: Waive d Testing in the ED is performed under the ED CLIA certificate #[id number]. Result Comment: wcha se Performed By: #### L [id number] ####[facility] ([facility])[address] [place] [address] Glucose [Mass/Vol] 149 mg/dL High 70-105 [facility] Comment on above: Order Comment: Waive d Testing in the ED is performed under the ED CLIA certificate #[id number]. Result Comment: cfet [email or web address] Performed By: #### L [id number] ####[facility] ([facility])[address] [place] [address] Glucose [Mass/Vol] 183 mg/dL High 70-105 [facility] Comment on above: Order Comment: Waive d Testing in the ED is performed under the ED CLIA certificate #[id number]. Result Comment: cfet [email or web address] Performed By: #### L [id number] ####[facility] ([facility])[address] [place] [address] Glucose [Mass/Vol] 141 mg/dL High 70-105 [facility] Comment on above: Order Comment: Waive d Testing in the ED is performed under the ED CLIA certificate #[id number]. Result Comment: cfet [email or web address] Performed By: #### L [id number] ####[facility] (BEAKER)[address] [place] [address] 30on 05-12-2024 30 Normal [facility] 30 Normal [facility] 30 Normal [facility] 30 Normal [facility] APTTon 05-12-2024 ACTIVATED PARTIAL THROMBOPLASTIN TIME IN PPP BY COAGULATION ASSAY 49.3 Seconds High 25.0-35.0 [facility] Comment on above: Order Comment: Check aPTT every 6 hours while on heparin infusion, or per protocol. Result Comment: Clin ical significance of the APTT is questionable in the presence of heparin. Performed By: #### L [id number] ####[facility] ([facility])[address] [place] [address] CBCon 05-12-2024 Erythrocyte distribution width (RBC) [Ratio] 13.9 % Normal 11.5-15.0 [facility] Comment on above: Performed By: #### L [id number] ####[facility] ([facility])[address] [place] [place] [address] ERYTHROCYTE MEAN CORPUSCULAR HEMOGLOBIN CONCENTRATION (G/DL) BY AUTOMATED 32.5 g/dL Normal 32.0-35.0 [facility] Comment on above: Performed By: #### L [id number] ####[facility] ([facility])[address] [place] [place] [address] Hematocrit (Bld) [Volume fraction] 41.8 % Normal 36.0-48.0 [facility] Comment on above: Performed By: #### L [id number] ####[facility] ([facility])[address] [place] [place] [address] Hemoglobin (Bld) [Mass/Vol] 13.6 g/dL Normal 12.0-15.0 [facility] Comment on above: Performed By: #### L [id number] ####[facility] ([facility])[address] [place] [place] [address] MCH (RBC) [Entitic mass] 28.9 pg Normal 27.0-33.0 [facility] Comment on above: Performed By: #### L [id number] ####[facility] ([facility])[address] [place] [place] [address] MCV (RBC) [Entitic vol] 88.9 fL Normal 82.0-98.0 [facility] Comment on above: Performed By: #### L [id number] ####[facility] ([facility])[address] [place] [place] [address] PLATELETS (10*3/UL) IN BLOOD AUTOMATED COUNT 254 10*3/uL Normal 150-400 [facility] Comment on above: Performed By: #### L [id number] ####[facility] ([facility])[address] [place] [place] [address] RBC (Bld) [#/Vol] 4.70 10*6/uL Normal 3.80-5.00 [facility] Comment on above: Performed By: #### L [id number] ####[facility] ([facility])[address] [place] [place] [address] WBC (Bld) [#/Vol] 6.18 10*3/uL Normal 4.00-10.60 [facility] Comment on above: Performed By: #### L [id number] ####[facility] ([facility])[address] [place] [place] [address] CONSULTon 05-12-2024 CONSULT Normal [facility] CONSULT Normal [facility] POCT GLUCOSE METER UNSOLICIT ED RESULTSon 05-12-2024 Glucose [Mass/Vol] 165 mg/dL High 70-105 [facility] Comment on above: Order Comment: Waive d Testing in the ED is performed under the ED CLIA certificate #[id number]. Result Comment: wcha se Performed By: #### L [id number] ####[facility] ([facility])[address] [place] [place] [address] Glucose [Mass/Vol] 183 mg/dL High 70-105 [facility] Comment on above: Order Comment: Waive d Testing in the ED is performed under the ED CLIA certificate #[id number]. Result Comment: cfet [email or web address] Performed By: #### L [id number] ####[facility] ([facility])[address] [place] [place] [address] Glucose [Mass/Vol] 152 mg/dL High 70-105 [facility] Comment on above: Order Comment: Waive d Testing in the ED is performed under the ED CLIA certificate #[id number]. Result Comment: bflo od Performed By: #### L [id number] ####[facility] ([facility])[address] [place] [address] Glucose [Mass/Vol] 189 mg/dL High 70-105 [facility] Comment on above: Order Comment: Waive d Testing in the ED is performed under the ED CLIA certificate #[id number]. Result Comment: bflo od Performed By: #### L [id number] ####[facility] ([facility])[address] [place] [address] RESPIRATORY VIRUS PCR PANELo n 05-12-2024 ADENOVIRUS DETECTION BY PCR Not detected Normal Not Detected [facility] Comment on above: Order Comment: Testi ng methodology is a multiplexed nucleic acid test intended for the simultaneous qualitative detection and differentiation of nucleic acids from multiple viral and bacterial respiratory organisms in nasopharyngeal swabs (STAMPING PRESS OPERATOR). Performed By: #### L [id number] ####[facility] ([facility])[address] [place] [address] B. PARAPERTUSSIS DNA Not detected Normal Not Detected [facility] Comment on above: Order Comment: Testi ng methodology is a multiplexed nucleic acid test intended for the simultaneous qualitative detection and differentiation of nucleic acids from multiple viral and bacterial respiratory organisms in nasopharyngeal swabs (STAMPING PRESS OPERATOR). Performed By: #### L [id number] ####[facility] ([facility])[address] [place] [address] BORDETELLA PERTUSSIS DNA PRESENCE IN UNSPECIFIED SPECIMEN BY WV* Not detected Normal Not Detected [facility] Comment on above: Order Comment: Testi ng methodology is a multiplexed nucleic acid test intended for the simultaneous qualitative detection and differentiation of nucleic acids from multiple viral and bacterial respiratory organisms in nasopharyngeal swabs (STAMPING PRESS OPERATOR). Performed By: #### L [id number] ####[facility] ([facility])[address] [place] [address] CHLAMYDOPHILA PNEUMONIAE Not detected Normal Not Detected [facility] Comment on above: Order Comment: Testi ng methodology is a multiplexed nucleic acid test intended for the simultaneous qualitative detection and differentiation of nucleic acids from multiple viral and bacterial respiratory organisms in nasopharyngeal swabs (STAMPING PRESS OPERATOR). Performed By: #### L [id number] ####[facility] ([facility])[address] [place] [address] CORONAVIRUS [id number] Not detected Normal Not Detected [facility] Comment on above: Order Comment: Testi ng methodology is a multiplexed nucleic acid test intended for the simultaneous qualitative detection and differentiation of nucleic acids from multiple viral and bacterial respiratory organisms in nasopharyngeal swabs (STAMPING PRESS OPERATOR). Performed By: #### L [id number] ####[facility] ([facility])[address] [place] [address] CORONAVIRUS HKU1 Not detected Normal Not Detected [facility] Comment on above: Order Comment: Testi ng methodology is a multiplexed nucleic acid test intended for the simultaneous qualitative detection and differentiation of nucleic acids from multiple viral and bacterial respiratory organisms in nasopharyngeal swabs (STAMPING PRESS OPERATOR). Performed By: #### L [id number] ####[facility] ([facility])[address] [place] [address] CORONAVIRUS [id number] Not detected Normal Not Detected [facility] Comment on above: Order Comment: Testi ng methodology is a multiplexed nucleic acid test intended for the simultaneous qualitative detection and differentiation of nucleic acids from multiple viral and bacterial respiratory organisms in nasopharyngeal swabs (STAMPING PRESS OPERATOR). Performed By: #### L [id number] ####[facility] ([facility])[address] [place] [address] CORONAVIRUS [id number] Not detected Normal Not Detected [facility] Comment on above: Order Comment: Testi ng methodology is a multiplexed nucleic acid test intended for the simultaneous qualitative detection and differentiation of nucleic acids from multiple viral and bacterial respiratory organisms in nasopharyngeal swabs (STAMPING PRESS OPERATOR). Performed By: #### L [id number] ####[facility] ([facility])[address] [place] [address] HUMAN METAPNEUMOVIRUS Not detected Normal Not Detected [facility] Comment on above: Order Comment: Testi ng methodology is a multiplexed nucleic acid test intended for the simultaneous qualitative detection and differentiation of nucleic acids from multiple viral and bacterial respiratory organisms in nasopharyngeal swabs (STAMPING PRESS OPERATOR). Performed By: #### L [id number] ####[facility] ([facility])[address] [place] [address] HUMAN RHINOVIRUS+ENTEROVIRUS Not detected Normal Not Detected [facility] Comment on above: Order Comment: Testi ng methodology is a multiplexed nucleic acid test intended for the simultaneous qualitative detection and differentiation of nucleic acids from multiple viral and bacterial respiratory organisms in nasopharyngeal swabs (STAMPING PRESS OPERATOR). Performed By: #### L [id number] ####[facility] ([facility])[address] [place] [address] INFLUENZA A Not detected Normal Not Detected [facility] Comment on above: Order Comment: Testi ng methodology is a multiplexed nucleic acid test intended for the simultaneous qualitative detection and differentiation of nucleic acids from multiple viral and bacterial respiratory organisms in nasopharyngeal swabs (STAMPING PRESS OPERATOR). Performed By: #### L [id number] ####[facility] ([facility])[address] [place] [address] INFLUENZA B Not detected Normal Not Detected [facility] Comment on above: Order Comment: Testi ng methodology is a multiplexed nucleic acid test intended for the simultaneous qualitative detection and differentiation of nucleic acids from multiple viral and bacterial respiratory organisms in nasopharyngeal swabs (STAMPING PRESS OPERATOR). Performed By: #### L [id number] ####[facility] ([facility])[address] [place] [address] MYCOPLASMA PNEUMONIAE Not detected Normal Not Detected [facility] Comment on above: Order Comment: Testi ng methodology is a multiplexed nucleic acid test intended for the simultaneous qualitative detection and differentiation of nucleic acids from multiple viral and bacterial respiratory organisms in nasopharyngeal swabs (STAMPING PRESS OPERATOR). Performed By: #### L [id number] ####[facility] ([facility])[address] [place] [address] PARAINFLUENZA 1 Not detected Normal Not Detected [facility] Comment on above: Order Comment: Testi ng methodology is a multiplexed nucleic acid test intended for the simultaneous qualitative detection and differentiation of nucleic acids from multiple viral and bacterial respiratory organisms in nasopharyngeal swabs (STAMPING PRESS OPERATOR). Performed By: #### L [id number] ####[facility] ([facility])[address] [place] [address] PARAINFLUENZA 2 Not detected Normal Not Detected [facility] Comment on above: Order Comment: Testi ng methodology is a multiplexed nucleic acid test intended for the simultaneous qualitative detection and differentiation of nucleic acids from multiple viral and bacterial respiratory organisms in nasopharyngeal swabs (STAMPING PRESS OPERATOR). Performed By: #### L [id number] ####[facility] ([facility])[address] [place] [address] PARAINFLUENZA 3 Not detected Normal Not Detected [facility] Comment on above: Order Comment: Testi ng methodology is a multiplexed nucleic acid test intended for the simultaneous qualitative detection and differentiation of nucleic acids from multiple viral and bacterial respiratory organisms in nasopharyngeal swabs (STAMPING PRESS OPERATOR). Performed By: #### L [id number] ####[facility] ([facility])[address] [place] [address] PARAINFLUENZA 4 Not detected Normal Not Detected [facility] Comment on above: Order Comment: Testi ng methodology is a multiplexed nucleic acid test intended for the simultaneous qualitative detection and differentiation of nucleic acids from multiple viral and bacterial respiratory organisms in nasopharyngeal swabs (STAMPING PRESS OPERATOR). Performed By: #### L [id number] ####[facility] ([facility])[address] [facility] [place] [address] RESP SYNCYTIAL VIRUS Not detected Normal Not Detected [facility] Comment on above: Order Comment: Testi ng methodology is a multiplexed nucleic acid test intended for the simultaneous qualitative detection and differentiation of nucleic acids from multiple viral and bacterial respiratory organisms in nasopharyngeal swabs (STAMPING PRESS OPERATOR). Performed By: #### L [id number] ####[facility] ([facility])[address] [facility] [place] [address] SARS-CoV-2 (COVID-19) RNA CITLALY+probe Ql (Unsp spec) Not detected Normal Not Detected [facility] Comment on above: Order Comment: Testi ng methodology is a multiplexed nucleic acid test intended for the simultaneous qualitative detection and differentiation of nucleic acids from multiple viral and bacterial respiratory organisms in nasopharyngeal swabs (STAMPING PRESS OPERATOR). Performed By: #### L [id number] ####[facility] ([facility])[address] [place] [place] [address] TROPONIN Ion 05-12-2024 Troponin I.cardiac [Mass/Vol] 0.03 ng/mL Normal 0.00-0.04 [facility] Comment on above: Performed By: #### L [id number] ####[facility] ([facility])[address] [place] [address] Troponin I.cardiac [Mass/Vol] 0.04 ng/mL Normal 0.00-0.04 [facility] Comment on above: Performed By: #### L [id number] ####[facility] ([facility])[address] [place] [address] URINALYSIS MICROSCOPIC WITH REFLEX CULTUREon 05-12-2024 RBC (#/HPF) IN URINE SEDIMENT 3-5 Abnormal None Seen, 0-2 [facility] Comment on above: Performed By: #### L [id number] ####[facility] ([facility])[address] [place] [address] SQUAMOUS EPITHELIAL CELLS (#/LPF) IN URINE SEDIMENT Moderate Abnormal None Seen, Occasional, Few [facility] Comment on above: Performed By: #### L [id number] ####[facility] ([facility])[address] [place] [address] WBC (LEUKOCYTE) (#/HPF) IN URINE SEDIMENT 6-10 Abnormal None Seen, 0-2 [facility] Comment on above: Performed By: #### L [id number] ####[facility] ([facility])[address] [place] [address] URINALYSIS WITH REFLEX CULTU REon 05-12-2024 BILIRUBIN, TOTAL PRESENCE IN URINE Negative Normal Negative [facility] Comment on above: Performed By: #### L [id number] ####[facility] ([facility])[address] [place] [address] Clarity (U) Clear Normal Clear [facility] Comment on above: Performed By: #### L [id number] ####[facility] ([facility])[address] [place] [address] Color (U) Light-Yellow Normal Colorless, Yellow, Light-Yello w [facility] Comment on above: Performed By: #### L [id number] ####[facility] ([facility])[address] [place] [address] GLUCOSE (MG/DL) IN URINE Normal Normal Normal [facility] Comment on above: Performed By: #### L [id number] ####[facility] ([facility])[address] [place] [address] HEMOGLOBIN PRESENCE IN URINE Negative Normal Negative [facility] Comment on above: Performed By: #### L [id number] ####[facility] ([facility])[address] [place] [address] Ketones Ql (U) Negative Normal Negative [facility] Comment on above: Performed By: #### L [id number] ####[facility] ([facility])[address] [place] [address] LEUKOCYTE ESTERASE PRESENCE IN URINE BY TEST STRIP Small Abnormal Negative [facility] Comment on above: Performed By: #### L [id number] ####[facility] ([facility])[address] [place] [address] NITRITE PRESENCE IN URINE Negative Normal Negative [facility] Comment on above: Performed By: #### L [id number] ####[facility] ([facility])[address] [place] [address] pH (U) 6.0 [pH] Normal 5.0-8.0 [facility] Comment on above: Performed By: #### L [id number] ####[facility] ([facility])[address] [place] [place] [address] Protein (U) [Mass/Vol] Negative Normal Negative [facility] Comment on above: Performed By: #### L [id number] ####[facility] ([facility])[address] [place] [address] Specific gravity (U) [Rel density] 1.015 Normal 1.010-1.030 [facility] Comment on above: Performed By: #### L [id number] ####[facility] ([facility])[address] [place] [address] UROBILINOGEN (MG/DL) IN URINE Normal Normal Normal [facility] Comment on above: Performed By: #### L [id number] ####[facility] ([facility])[address] [place] [address] APTTon 05-11-2024 ACTIVATED PARTIAL THROMBOPLASTIN TIME IN PPP BY COAGULATION ASSAY 27.4 Seconds Normal 25.0-35.0 [facility] Comment on above: Order Comment: Basel ine aPTT before initiating heparin infusion. Result Comment: Clin ical significance of the APTT is questionable in the presence of heparin. Performed By: #### L [id number] ####[facility] ([facility])[address] [place] [address] Activated partial thrombopla stin time (aPTT) in platelet poor plasma by coagulation aon 05-11-2024 aPTT Coag (PPP) [Time] Activated partial thromboplastin time (aPTT) in platelet poor plasma by coagulation a 22.3-36.2 [facility] B-TYPE NATRIURETIC PEPTIDEon 05-11-2024 Natriuretic peptide B (Bld) [Mass/Vol] 537 pg/mL High 0-100 [facility] Comment on above: Performed By: #### L [id number] ####[facility] ([facility])[address] [place] [address] Basophils Auto (Bld) [#/Vol] on 05-11-2024 Basophils (Bld) [#/Vol] Automated basophil count 0.0-0.1 [facility] Basophils/100 WBC Auto (Bld) on 05-11-2024 Basophils/100 WBC (Bld) Automated basophil % 0.2-2.0 [facility] CBC WITH AUTO DIFFERENTIALon 05-11-2024 Basophils (Bld) [#/Vol] 0.10 10*3/uL Normal 0.00-0.20 [facility] Comment on above: Performed By: #### L [id number] ####[facility] ([facility])[address] [place] [address] Basophils/100 WBC (Bld) 1.3 % High 0.0-1.0 [facility] Comment on above: Performed By: #### L [id number] ####[facility] ([facility])[address] [place] [address] Eosinophils (Bld) [#/Vol] 0.31 10*3/uL Normal 0.00-0.50 [facility] Comment on above: Performed By: #### L [id number] ####[facility] ([facility])[address] [place] [address] Eosinophils/100 WBC (Bld) 4.0 % Normal 0.0-6.0 [facility] Comment on above: Performed By: #### L [id number] ####[facility] ([facility])[address] [place] [address] Erythrocyte distribution width (RBC) [Ratio] 13.9 % Normal 11.5-15.0 [facility] Comment on above: Performed By: #### L [id number] ####[facility] ([facility])[address] [place] [address] ERYTHROCYTE MEAN CORPUSCULAR HEMOGLOBIN CONCENTRATION (G/DL) BY AUTOMATED 33.7 g/dL Normal 32.0-35.0 [facility] Comment on above: Performed By: #### L [id number] ####[facility] ([facility])[address] [place] [address] Hematocrit (Bld) [Volume fraction] 41.6 % Normal 36.0-48.0 [facility] Comment on above: Performed By: #### L [id number] ####[facility] ([facility])[address] [place] [address] Hemoglobin (Bld) [Mass/Vol] 14.0 g/dL Normal 12.0-15.0 [facility] Comment on above: Performed By: #### L [id number] ####[facility] ([facility])[address] [place] [address] Immature granulocytes (Bld) [#/Vol] 0.03 10*3/uL Normal 0.00-0.20 [facility] Comment on above: Performed By: #### L [id number] ####[facility] ([facility])[address] [place] [address] Immature granulocytes/100 WBC (Bld) 0.4 % Normal 0.0-1.0 [facility] Comment on above: Performed By: #### L [id number] ####[facility] ([facility])[address] [place] [place] [address] Lymphocytes (Bld) [#/Vol] 2.25 10*3/uL Normal 1.20-4.00 [facility] Comment on above: Performed By: #### L [id number] ####[facility] ([facility])[address] [place] [place] [address] Lymphocytes/100 WBC (Bld) 29.3 % Normal 20.0-45.0 [facility] Comment on above: Performed By: #### L [id number] ####[facility] ([facility])[address] [place] [place] [address] MCH (RBC) [Entitic mass] 28.9 pg Normal 27.0-33.0 [facility] Comment on above: Performed By: #### L [id number] ####[facility] ([facility])[address] [place] [place] [address] MCV (RBC) [Entitic vol] 86.0 fL Normal 82.0-98.0 [facility] Comment on above: Performed By: #### L [id number] ####[facility] ([facility])[address] [place] [address] Monocytes (Bld) [#/Vol] 0.50 10*3/uL Normal 0.10-1.00 [facility] Comment on above: Performed By: #### L [id number] ####[facility] ([facility])[address] [place] [place] [address] Monocytes/100 WBC (Bld) 6.5 % Normal 5.0-12.0 [facility] Comment on above: Performed By: #### L [id number] ####[facility] ([facility])[address] [place] [place] [address] Neutrophils (Bld) [#/Vol] 4.50 10*3/uL Normal 1.60-7.60 [facility] Comment on above: Performed By: #### L [id number] ####[facility] ([facility])[address] [place] [place] [address] Neutrophils/100 WBC (Bld) 58.5 % Normal 40.0-72.0 [facility] Comment on above: Performed By: #### L [id number] ####[facility] ([facility])[address] [place] [address] NRBC (PER 100 WBCS) BY AUTOMATED COUNT 0.0 % Normal 0 [facility] Comment on above: Performed By: #### L [id number] ####[facility] ([facility])[address] [place] [place] [address] PLATELETS (10*3/UL) IN BLOOD AUTOMATED COUNT 270 10*3/uL Normal 150-400 [facility] Comment on above: Performed By: #### L [id number] ####[facility] ([facility])[address] [place] [address] RBC (Bld) [#/Vol] 4.84 10*6/uL Normal 3.80-5.00 [facility] Comment on above: Performed By: #### L [id number] ####[facility] ([facility])[address] [place] [address] WBC (Bld) [#/Vol] 7.69 10*3/uL Normal 4.00-10.60 [facility] Comment on above: Performed By: #### L [id number] ####[facility] ([facility])[address] [place] [place] [address] COMPREHENSIVE METABOLIC PANE Kirit 05-11-2024 Albumin [Mass/Vol] 4.1 g/dL Normal 3.5-5.7 [facility] Comment on above: Performed By: #### L [id number] ####[facility] ([facility])[address] [place] [address] ALP [Catalytic activity/Vol] 128 U/L High 34-104 [facility] Comment on above: Performed By: #### L [id number] ####[facility] ([facility])[address] [place] [address] ALT [Catalytic activity/Vol] 13 U/L Normal 7-52 [facility] Comment on above: Performed By: #### L [id number] ####[facility] ([facility])[address] [place] [address] Anion gap [Moles/Vol] 13 mmol/L Normal 7-20 [facility] Comment on above: Performed By: #### L [id number] ####[facility] ([facility])[address] [place] [address] AST [Catalytic activity/Vol] 18 U/L Normal 13-39 [facility] Comment on above: Performed By: #### L [id number] ####[facility] ([facility])[address] [place] [address] Bilirubin [Mass/Vol] 0.4 mg/dL Normal 0.3-1.0 [facility] Comment on above: Performed By: #### L [id number] ####[facility] ([facility])[address] [place] [address] Calcium [Mass/Vol] 8.9 mg/dL Normal 8.6-10.3 [facility] Comment on above: Performed By: #### L [id number] ####[facility] ([facility])[address] [place] [address] Chloride [Moles/Vol] 98 mmol/L Normal 98-107 [facility] Comment on above: Performed By: #### L [id number] ####[facility] ([facility])[address] [place] [address] CO2 [Moles/Vol] 27 mmol/L Normal 21-31 [facility] Comment on above: Performed By: #### L [id number] ####[facility] ([facility])[address] [place] [address] Creatinine [Mass/Vol] 0.98 mg/dL Normal 0.60-1.20 [facility] Comment on above: Performed By: #### L [id number] ####[facility] ([facility])[address] [place] [place] [address] GLOMERULAR FILTRATION RATE ML/MIN/1.73 SQ M.PREDICTED 65.3 mL/min/1.73m*2 Normal >60.0 [facility] Comment on above: Result Comment: The [facility]???s estimated glomerular filtration rate (eGFR) will no [...] By: #### L [id number] ####[facility] ([facility])[address] [place] [address] Glucose [Mass/Vol] 151 mg/dL High 70-100 [facility] Comment on above: Performed By: #### L [id number] ####[facility] ([facility])[address] [place] [place] [address] Potassium [Moles/Vol] 3.8 mmol/L Normal 3.5-5.1 [facility] Comment on above: Performed By: #### L [id number] ####[facility] ([facility])[address] [place] [address] Protein [Mass/Vol] 7.0 g/dL Normal 6.0-8.3 [facility] Comment on above: Performed By: #### L [id number] ####[facility] ([facility])[address] [place] [address] Sodium [Moles/Vol] 134 mmol/L Low 136-145 [facility] Comment on above: Performed By: #### L [id number] ####[facility] ([facility])[address] [place] [address] Urea nitrogen [Mass/Vol] 16 mg/dL Normal 7-25 [facility] Comment on above: Performed By: #### L [id number] ####[facility] ([facility])[address] [place] [address] UREA NITROGEN/CREATININE (MASS RATIO) IN SER/PLAS 16.3 Normal [facility] Comment on above: Performed By: #### L [id number] ####[facility] ([facility])[address] [place] [address] Eosinophils/100 WBC Auto (Bl d)on 05-11-2024 Eosinophils/100 WBC (Bld) Automated eosinophil % 0.9-7.0 [facility] Erythrocyte distribution wid th Auto (RBC) [Ratio]on 05-11-2024 Erythrocyte distribution width (RBC) [Ratio] Erythrocyte distribution width [Ratio] by Automated count 11.0-15.0 [facility] Estimated glomerular filtrat ion rate (GFR) non- Americanon 05-11-2024 GFR/1.73 sq M.predicted among non-blacks MDRD (S/P/Bld) [Vol rate/Area] Estimated glomerular filtration rate (GFR) non- Low >=60 mL/min/1.73 m 2 [facility] HPon 05-11-2024 HP Normal [facility] Hematocrit Auto (Bld) [Volum e fraction]on 05-11-2024 Hematocrit (Bld) [Volume fraction] Hematocrit [Volume Fraction] of Blood by Automated count 36.0-48.0 [facility] Hemoglobin [Mass/volume] in Bloodon 05-11-2024 Hemoglobin (Bld) [Mass/Vol] Hemoglobin [Mass/volume] in Blood 12.0-16.0 [facility] INR in Platelet poor plasma by Coagulation assayon 05-11-2024 INR Coag (PPP) [Relative time] INR in Platelet poor plasma by Coagulation assay [facility] Comment on above: DESIRED INR:2.0-3.0 CONDITIONS NOT LISTED BELOW2.5-3.5 FOR PROSTHETIC HEART VALVE REPLACEMENT2.5-3.5 RECURRENT THROMBOSIS Laboratory - Chemistry and C hemistry - challengeon 05-11-2024 Calcium [Mass/Vol] 9.2 mg/dL 8.5-10.1 [facility] Chloride [Moles/Vol] 103 mmol/L 98-107 [facility] CO2 [Moles/Vol] 30.0 mmol/L 21.0-32.0 [facility] Creatinine [Mass/Vol] 1.17 mg/dL High 0.55-1.02 [facility] GFR/1.73 sq M.predicted MDRD (S/P/Bld) [Vol rate/Area] 57 mL/min/{1.73_m2} Low >=60 mL/min/1.73 m 2 [facility] Glucose [Mass/Vol] 127 mg/dL High 74-106 [facility] Potassium [Moles/Vol] 3.7 mmol/L 3.5-5.1 [facility] Sodium [Moles/Vol] 139 mmol/L 136-145 [facility] Urea nitrogen [Mass/Vol] 15.0 mg/dL 7.0-18.0 [facility] Urea nitrogen/Creatinine [Mass ratio] 12.8 mg/mg [facility] Laboratory - Coagulationon 0 05-11-2024 aPTT Coag (Bld) [Time] 36.6 s Critically low 43.5-61.5 [facility] Comment on above: RESULTS CALLED TO GABBI ESPINOSA RN @BY Ruby Keith at 1902 Laboratory - Hematology and Cell countson 05-11-2024 Immature granulocytes/100 WBC (Bld) 0.3 % 0.0-0.5 [facility] Leukocytes [#/volume] correc chantelle for nucleated erythrocytes in Blood by Automated counon 05-11-2024 WBC corrected for nucl RBC Auto (Bld) [#/Vol] Leukocytes [#/volume] corrected for nucleated erythrocytes in Blood by Automated coun 4.0-11.0 [facility] Lymphocytes Auto (Bld) [#/Vo l]on 05-11-2024 Lymphocytes (Bld) [#/Vol] Lymphocytes [#/volume] in Blood by Automated count 1.2-3.8 [facility] Lymphocytes/100 WBC Auto (Bl d)on 05-11-2024 Lymphocytes/100 WBC (Bld) Lymphocytes/100 leukocytes in Blood by Automated count 20.5-60.0 [facility] MAGNESIUMon 05-11-2024 Magnesium [Mass/Vol] 2.2 mg/dL Normal 1.9-2.7 [facility] Comment on above: Performed By: #### L [id number] ####[facility] (BEAKER)[address] [place] [address] MCH Auto (RBC) [Entitic mass ]on 05-11-2024 MCH (RBC) [Entitic mass] MCH [Entitic mass] by Automated count 26.7-34.0 [facility] MCHC Auto (RBC) [Mass/Vol]on 05-11-2024 MCHC (RBC) [Mass/Vol] MCHC [Mass/volume] by Automated count 29.9-35.2 [facility] MCV Auto (RBC) [Entitic vol] on 05-11-2024 MCV (RBC) [Entitic vol] MCV [Entitic volume] by Automated count 81.0-99.0 [facility] Monocytes Auto (Bld) [#/Vol] on 05-11-2024 Monocytes (Bld) [#/Vol] Automated blood monocyte count 0.3-0.8 [facility] Monocytes/100 WBC Auto (Bld) on 05-11-2024 Monocytes/100 WBC (Bld) Automated monocyte % 1.7-12.0 [facility] Neutrophils Auto (Bld) [#/Vo l]on 05-11-2024 Neutrophils (Bld) [#/Vol] Neutrophils [#/volume] in Blood by Automated count 1.4-6.5 [facility] Neutrophils/100 WBC Auto (Bl d)on 05-11-2024 Neutrophils/100 WBC (Bld) Automated neutrophil % 43.0-75.0 [facility] No Panel Informationon 05-11 Troponin I High Sensitivity 1036.8 pg/mL Critically high 4.0-51.3 [facility] Comment on above: RESULTS CALLED TO [...] Eosinophils # (Auto) 0.4 10 3/uL 0.0-0.7 [facility] Immature Granulocyte # (Auto) 0.02 10 3/uL 0.00-0.03 [facility] PHOSPHORUSon 05-11-2024 Magnesium [Mass/Vol] 3.1 mg/dL Normal 2.5-5.0 [facility] Comment on above: Performed By: #### L [id number] ####[facility] ([place])[address] [place] [address] POCT GLUCOSE METER UNSOLICIT ED RESULTSon 05-11-2024 Glucose [Mass/Vol] 163 mg/dL High 70-105 [facility] Comment on above: Order Comment: Waive d Testing in the ED is performed under the ED CLIA certificate #[id number]. Result Comment: mlad d3 Performed By: #### L [id number] ####[facility] ([place])[address] [place] [address] PROTIME-INRon 05-11-2024 INR IN PPP BY COAGULATION ASSAY 0.99 Normal 0.90-1.10 [facility] Comment on above: Result Comment: ACCC P [...] By: #### L [id number] ####[facility] (BEAKER)[address] [place] [address] PROTHROMBIN TIME (PT) IN PPP BY COAGULATION ASSAY 13.1 Seconds Normal 12.3-14.8 [facility] Comment on above: Performed By: #### L [id number] ####[facility] (BEAKER)[address] [place] [address] Platelet mean volume Auto (B ld) [Entitic vol]on 05-11-2024 Platelet mean volume (Bld) [Entitic vol] Platelet mean volume [Entitic volume] in Blood by Automated count 9.5-13.5 [facility] Platelets Auto (Bld) [#/Vol] on 05-11-2024 Platelets (Bld) [#/Vol] Platelets [#/volume] in Blood by Automated count 150-450 [facility] Prothrombin time (PT)on 04-24 PT Coag (PPP) [Time] Prothrombin time (PT) 9.0- 11.6 [facility] RBC Auto (Bld) [#/Vol]on RBC (Bld) [#/Vol] Erythrocytes [#/volu me] in Blood by Automated count 4.20-5.40 [facility] Serum or plasma anion gap de terminationon 05-11-2024 Anion gap [Moles/Vol] Serum or plasma an ion gap determination [facility] TROPONIN Ion 05-11-2024 Troponin I.cardiac [Mass/Vol] 0.06 ng/mL High 0.00-0.04 [facility] Comment on above: Performed By: #### L [id number] ####[facility] (BEAKER)[address] [place] [address] Basophils Auto (Bld) [#/Vol] on 02-17-2025 Basophils (Bld) [#/Vol] Automated basophil count 0.0-0.1 [facility] Basophils/100 WBC Auto (Bld) on 05-10-2024 Basophils/100 WBC (Bld) Automated basophil % 0.2-2.0 [facility] Eosinophils/100 WBC Auto (Bl d)on 05-10-2024 Eosinophils/100 WBC (Bld) Automated eosinophil % 0.9-7.0 [facility] Erythrocyte distribution wid th Auto (RBC) [Ratio]on 05-10-2024 Erythrocyte distribution width (RBC) [Ratio] Erythrocyte distribution width [Ratio] by Automated count 11.0-15.0 [facility] Estimated glomerular filtrat ion rate (GFR) non- Americanon 05-10-2024 GFR/1.73 sq M.predicted among non-blacks MDRD (S/P/Bld) [Vol rate/Area] Estimated glomerular filtration rate (GFR) non- Low >=60 mL/min/1.73 m 2 [facility] Globulin Calc (S) [Mass/Vol] on 05-10-2024 Globulin (S) [Mass/Vol] Serum globulin measurement by calculation (mass/volume) [facility] Hematocrit Auto (Bld) [Volum e fraction]on 05-10-2024 Hematocrit (Bld) [Volume fraction] Hematocrit [Volume Fraction] of Blood by Automated count 36.0-48.0 [facility] Hemoglobin [Mass/volume] in Bloodon 05-10-2024 Hemoglobin (Bld) [Mass/Vol] Hemoglobin [Mass/volume] in Blood 12.0-16.0 [facility] Laboratory - Chemistry and C hemistry - challengeon 05-10-2024 Albumin [Mass/Vol] 3.5 g/dL 3.4-5.0 [facility] ALP [Catalytic activity/Vol] 144 U/L High 46-116 [facility] ALT [Catalytic activity/Vol] 21 U/L 14-59 [facility] AST [Catalytic activity/Vol] 22 U/L 15-37 [facility] Bilirubin [Mass/Vol] 0.5 mg/dL 0.2-1.0 [facility] Calcium [Mass/Vol] 9.3 mg/dL 8.5-10.1 [facility] Chloride [Moles/Vol] 102 mmol/L 98-107 [facility] CO2 [Moles/Vol] 29.0 mmol/L 21.0-32.0 [facility] Creatinine [Mass/Vol] 1.17 mg/dL High 0.55-1.02 [facility] GFR/1.73 sq M.predicted MDRD (S/P/Bld) [Vol rate/Area] 57 mL/min/{1.73_m2} Low >=60 mL/min/1.73 m 2 [facility] Glucose [Mass/Vol] 142 mg/dL High 74-106 [facility] Natriuretic peptide B (Bld) [Mass/Vol] 1140.0 pg/mL High <=900.0 [facility] Potassium [Moles/Vol] 4.4 mmol/L 3.5-5.1 [facility] Protein [Mass/Vol] 7.4 g/dL 6.4-8.2 [facility] Sodium [Moles/Vol] 138 mmol/L 136-145 [facility] Urea nitrogen [Mass/Vol] 14.0 mg/dL 7.0-18.0 [facility] Urea nitrogen/Creatinine [Mass ratio] 12.0 mg/mg [facility] Laboratory - Hematology and Cell countson 05-10-2024 Immature granulocytes/100 WBC (Bld) 0.4 % 0.0-0.5 [facility] Leukocytes [#/volume] correc chantelle for nucleated erythrocytes in Blood by Automated counon 05-10-2024 WBC corrected for nucl RBC Auto (Bld) [#/Vol] Leukocytes [#/volume] corrected for nucleated erythrocytes in Blood by Automated coun 4.0-11.0 [facility] Lymphocytes Auto (Bld) [#/Vo l]on 05-10-2024 Lymphocytes (Bld) [#/Vol] Lymphocytes [#/volume] in Blood by Automated count 1.2-3.8 [facility] Lymphocytes/100 WBC Auto (Bl d)on 05-10-2024 Lymphocytes/100 WBC (Bld) Lymphocytes/100 leukocytes in Blood by Automated count Low 20.5-60.0 [facility] MCH Auto (RBC) [Entitic mass ]on 05-10-2024 MCH (RBC) [Entitic mass] MCH [Entitic mass] by Automated count 26.7-34.0 [facility] MCHC Auto (RBC) [Mass/Vol]on 05-10-2024 MCHC (RBC) [Mass/Vol] MCHC [Mass/volume] by Automated count 29.9-35.2 [facility] MCV Auto (RBC) [Entitic vol] on 05-10-2024 MCV (RBC) [Entitic vol] MCV [Entitic volume] by Automated count 81.0-99.0 [facility] Monocytes Auto (Bld) [#/Vol] on 05-10-2024 Monocytes (Bld) [#/Vol] Automated blood monocyte count 0.3-0.8 [facility] Monocytes/100 WBC Auto (Bld) on 05-10-2024 Monocytes/100 WBC (Bld) Automated monocyte % 1.7-12.0 [facility] Neutrophils Auto (Bld) [#/Vo l]on 05-10-2024 Neutrophils (Bld) [#/Vol] Neutrophils [#/volume] in Blood by Automated count 1.4-6.5 [facility] Neutrophils/100 WBC Auto (Bl d)on 05-10-2024 Neutrophils/100 WBC (Bld) Automated neutrophil % 43.0-75.0 [facility] No Panel Informationon 05-10 Troponin I High Sensitivity 641.2 pg/mL Critically high 4.0-51.3 [facility] Comment on above: RESULTS CALLED TO [...] Eosinophils # (Auto) 0.4 10 3/uL 0.0-0.7 [facility] Immature Granulocyte # (Auto) 0.03 10 3/uL 0.00-0.03 [facility] Platelet mean volume Auto (B ld) [Entitic vol]on 05-10-2024 Platelet mean volume (Bld) [Entitic vol] Platelet mean volume [Entitic volume] in Blood by Automated count 9.5-13.5 [facility] Platelets Auto (Bld) [#/Vol] on 05-10-2024 Platelets (Bld) [#/Vol] Platelets [#/volume] in Blood by Automated count 150-450 [facility] RBC Auto (Bld) [#/Vol]on RBC (Bld) [#/Vol] Erythrocytes [#/volu me] in Blood by Automated count 4.20-5.40 [facility] Serum or plasma albumin/glob ulin mass ratioon 05-10-2024 Albumin/Globulin [Mass ratio] Serum or plasma albumin/globulin mass ratio [facility] Serum or plasma anion gap de terminationon 05-10-2024 Anion gap [Moles/Vol] Serum or plasma an ion gap determination [facility] 29on 02-19-2024 29 Addendum created 42 by Mario Bermudez MD Delete clinical note Normal [facility] 29 Addendum created 41 by Mario Bermudez MD Delete clinical note Normal [facility] 29on 01-22-2024 29 Addended by: PALMIRA CAUSEY on: 01/22/2024 02:27 PM Modules accepted: Orders Normal [facility] Orders Onlyon 01-22-2024 Orders Only Normal [facility] BASIC METABOLIC PANELon 10-2 Anion gap [Moles/Vol] 10 mmol/L Normal 7-20 [facility] Comment on above: Performed By: #### L [id number] ####[facility] (BEAKER)[address] [place] [address] Calcium [Mass/Vol] 8.6 mg/dL Normal 8.6-10.3 [facility] Comment on above: Performed By: #### L [id number] ####[facility] (BEAKER)[address] [place] [address] Chloride [Moles/Vol] 104 mmol/L Normal 98-107 [facility] Comment on above: Performed By: #### L [id number] ####[facility] ([facility] [place] [place], [place] [address] CO2 [Moles/Vol] 29 mmol/L Normal 21-31 [facility] Comment on above: Performed By: #### L [id number] ####[facility] ([facility] [place] [place], [place] [address] Creatinine [Mass/Vol] 0.91 mg/dL Normal 0.60-1.20 [facility] Comment on above: Performed By: #### L [id number] ####[facility] ([facility])[address] [place], [place] [address] GLOMERULAR FILTRATION RATE ML/MIN/1.73 SQ M.PREDICTED 71.3 mL/min/1.73m*2 Normal >60.0 [facility] Comment on above: Result Comment: The [facility]???s estimated glomerular filtration rate (eGFR) will no [...] By: #### L [id number] ####[facility] ([facility])[address] [place] [address] Glucose [Mass/Vol] 150 mg/dL High 70-100 [facility] Comment on above: Performed By: #### L [id number] ####[facility] ([facility])[address] [place] [address] Potassium [Moles/Vol] 4.1 mmol/L Normal 3.5-5.1 [facility] Comment on above: Performed By: #### L [id number] ####[facility] (BEAKER)[address] [place] [address] Sodium [Moles/Vol] 139 mmol/L Normal 136-145 [facility] Comment on above: Performed By: #### L [id number] ####[facility] ([facility])[address] [place] [address] Urea nitrogen [Mass/Vol] 25 mg/dL Normal 7-25 [facility] Comment on above: Performed By: #### L [id number] ####[facility] ([facility])[address] [place] [address] UREA NITROGEN/CREATININE (MASS RATIO) IN SER/PLAS 27.5 Normal [facility] Comment on above: Performed By: #### L [id number] ####[facility] ([facility])[address] [place] [address] CBCon 01-12-2024 Erythrocyte distribution width (RBC) [Ratio] 15.6 % High 11.5-15.0 [facility] Comment on above: Performed By: #### L [id number] ####[facility] ([facility])[address] [place] [address] ERYTHROCYTE MEAN CORPUSCULAR HEMOGLOBIN CONCENTRATION (G/DL) BY AUTOMATED 31.9 g/dL Low 32.0-35.0 [facility] Comment on above: Performed By: #### L [id number] ####[facility] ([facility])[address] [place] [address] Hematocrit (Bld) [Volume fraction] 32.3 % Low 36.0-48.0 [facility] Comment on above: Performed By: #### L [id number] ####[facility] (BEAKER)[address] [place] [address] Hemoglobin (Bld) [Mass/Vol] 10.3 g/dL Low 12.0-15.0 [facility] Comment on above: Performed By: #### L [id number] ####[facility] (BEAKER)[address] [place] [address] MCH (RBC) [Entitic mass] 31.7 pg Normal 27.0-33.0 [facility] Comment on above: Performed By: #### L [id number] ####[facility] (BEAKER)[address] [place] [address] MCV (RBC) [Entitic vol] 99.4 fL High 82.0-98.0 [facility] Comment on above: Performed By: #### L [id number] ####[facility] (BEAKER)[address] [place] [place] [address] PLATELETS (10*3/UL) IN BLOOD AUTOMATED COUNT 263 10*3/uL Normal 150-400 [facility] Comment on above: Performed By: #### L [id number] ####[facility] (BEAKER)[address] [place] [address] RBC (Bld) [#/Vol] 3.25 10*6/uL Low 3.80-5.00 [facility] Comment on above: Performed By: #### L [id number] ####[facility] (BEAKER)[address] [place], [place] [address] WBC (Bld) [#/Vol] 5.96 10*3/uL Normal 4.00-10.60 [facility] Comment on above: Performed By: #### L [id number] ####[facility] (BEAKER)[address] [place] [address] 37on 01-08-2024 37 Normal [facility] 36on 01-07-2024 36 Called patient to re mind her to have chest xray completed prior to her appointment tomorrow. Normal [facility] BASIC METABOLIC PANELon 12-22 Anion gap [Moles/Vol] 8 mmol/L Normal 7-20 [facility] Comment on above: Performed By: #### L [id number] ####[facility] (BEAKER)[address] [place] [place] [address] Calcium [Mass/Vol] 8.4 mg/dL Low 8.6-10.3 [facility] Comment on above: Performed By: #### L [id number] ####[facility] ([facility])[address] [place] [address] Chloride [Moles/Vol] 108 mmol/L High 98-107 [facility] Comment on above: Performed By: #### L [id number] ####[facility] ([facility])[address] [place] [address] CO2 [Moles/Vol] 27 mmol/L Normal 21-31 [facility] Comment on above: Performed By: #### L [id number] ####[facility] ([facility])[address] [place] [address] Creatinine [Mass/Vol] 0.81 mg/dL Normal 0.60-1.20 [facility] Comment on above: Performed By: #### L [id number] ####[facility] ([facility])[address] [place] [address] GLOMERULAR FILTRATION RATE ML/MIN/1.73 SQ M.PREDICTED 82.0 mL/min/1.73m*2 Normal >60.0 [facility] Comment on above: Result Comment: The [facility]???s estimated glomerular filtration rate (eGFR) will no [...] By: #### L [id number] ####[facility] ([facility])[address] [place] [address] Glucose [Mass/Vol] 106 mg/dL High 70-100 [facility] Comment on above: Performed By: #### L [id number] ####[facility] (BEAKER)[address] [place] [address] Potassium [Moles/Vol] 4.1 mmol/L Normal 3.5-5.1 [facility] Comment on above: Performed By: #### L [id number] ####[facility] (BEAKER)[address] [place] [address] Sodium [Moles/Vol] 139 mmol/L Normal 136-145 [facility] Comment on above: Performed By: #### L [id number] ####[facility] (BEAKER)[address] [place] [address] Urea nitrogen [Mass/Vol] 18 mg/dL Normal 7-25 [facility] Comment on above: Performed By: #### L [id number] ####[facility] (BEAKER)[address] [place] [address] UREA NITROGEN/CREATININE (MASS RATIO) IN SER/PLAS 22.2 Normal [facility] Comment on above: Performed By: #### L [id number] ####[facility] (BEAKER)[address] [place] [address] CBCon 01-05-2024 Erythrocyte distribution width (RBC) [Ratio] 17.1 % High 11.5-15.0 [facility] Comment on above: Performed By: #### L [id number] ####[facility] (BEAKER)[address] [place] [address] ERYTHROCYTE MEAN CORPUSCULAR HEMOGLOBIN CONCENTRATION (G/DL) BY AUTOMATED 31.0 g/dL Low 32.0-35.0 [facility] Comment on above: Performed By: #### L [id number] ####[facility] (BEAKER)[address] [place] [address] Hematocrit (Bld) [Volume fraction] 32.6 % Low 36.0-48.0 [facility] Comment on above: Performed By: #### L [id number] ####[facility] (BEAKER)[address] [place] [address] Hemoglobin (Bld) [Mass/Vol] 10.1 g/dL Low 12.0-15.0 [facility] Comment on above: Performed By: #### L [id number] ####[facility] ([facility])[address] [place] [address] MCH (RBC) [Entitic mass] 32.1 pg Normal 27.0-33.0 [facility] Comment on above: Performed By: #### L [id number] ####[facility] ([facility])[address] [place] [address] MCV (RBC) [Entitic vol] 103.5 fL High 82.0-98.0 [facility] Comment on above: Performed By: #### L [id number] ####[facility] ([facility])[address] [place] [address] PLATELETS (10*3/UL) IN BLOOD AUTOMATED COUNT 371 10*3/uL Normal 150-400 [facility] Comment on above: Performed By: #### L [id number] ####[facility] ([facility])[address] [place] [address] RBC (Bld) [#/Vol] 3.15 10*6/uL Low 3.80-5.00 [facility] Comment on above: Performed By: #### L [id number] ####[facility] ([facility])[address] [place] [address] WBC (Bld) [#/Vol] 6.99 10*3/uL Normal 4.00-10.60 [facility] Comment on above: Performed By: #### L [id number] ####[facility] ([facility])[address] [place] [place] [address] CBC WITH AUTO DIFFERENTIALon 12-31-2023 Basophils (Bld) [#/Vol] 0.07 10*3/uL Normal 0.00-0.20 [facility] Comment on above: Performed By: #### L [id number] ####[facility] (BEAKER)[address] [place] [address] Basophils/100 WBC (Bld) 1.1 % High 0.0-1.0 [facility] Comment on above: Performed By: #### L [id number] ####[facility] (BEAKER)[address] [place] [place] [address] Eosinophils (Bld) [#/Vol] 0.39 10*3/uL Normal 0.00-0.50 [facility] Comment on above: Performed By: #### L [id number] ####[facility] (BEAKER)[address] [place] [place] [address] Eosinophils/100 WBC (Bld) 6.3 % High 0.0-6.0 [facility] Comment on above: Performed By: #### L [id number] ####[facility] (BEAKER)[address] [place] [address] Erythrocyte distribution width (RBC) [Ratio] 17.5 % High 11.5-15.0 [facility] Comment on above: Performed By: #### L [id number] ####[facility] (BEAKER)[address] [place], [place] [address] ERYTHROCYTE MEAN CORPUSCULAR HEMOGLOBIN CONCENTRATION (G/DL) BY AUTOMATED 30.6 g/dL Low 32.0-35.0 [facility] Comment on above: Performed By: #### L [id number] ####[facility] (BEAKER)[address] [place] [address] Hematocrit (Bld) [Volume fraction] 28.4 % Low 36.0-48.0 [facility] Comment on above: Performed By: #### L [id number] ####[facility] (BEAKER)[address] [place] [address] Hemoglobin (Bld) [Mass/Vol] 8.7 g/dL Low 12.0-15.0 [facility] Comment on above: Performed By: #### L [id number] ####[facility] (BEAKER)[address] [place] [address] Immature granulocytes (Bld) [#/Vol] 0.04 10*3/uL Normal 0.00-0.20 [facility] Comment on above: Performed By: #### L [id number] ####[facility] (BEAKER)[address] [place] [address] Immature granulocytes/100 WBC (Bld) 0.6 % Normal 0.0-1.0 [facility] Comment on above: Performed By: #### L [id number] ####[facility] (BEAKER)[address] [place] [address] Lymphocytes (Bld) [#/Vol] 1.24 10*3/uL Normal 1.20-4.00 [facility] Comment on above: Performed By: #### L [id number] ####[facility] (BEAKER)[address] [place] [address] Lymphocytes/100 WBC (Bld) 20.0 % Normal 20.0-45.0 [facility] Comment on above: Performed By: #### L [id number] ####[facility] (BEAKER)[address] [place] [address] MCH (RBC) [Entitic mass] 31.8 pg Normal 27.0-33.0 [facility] Comment on above: Performed By: #### L [id number] ####[facility] (BEAKER)[address] [place] [address] MCV (RBC) [Entitic vol] 103.6 fL High 82.0-98.0 [facility] Comment on above: Performed By: #### L [id number] ####[facility] (BEAKER)[address] [place] [address] Monocytes (Bld) [#/Vol] 0.35 10*3/uL Normal 0.10-1.00 [facility] Comment on above: Performed By: #### L [id number] ####[facility] (BEAKER)[address] [place] [address] Monocytes/100 WBC (Bld) 5.6 % Normal 5.0-12.0 [facility] Comment on above: Performed By: #### L [id number] ####[facility] ([facility])[address] [place] [place] [address] Neutrophils (Bld) [#/Vol] 4.12 10*3/uL Normal 1.60-7.60 [facility] Comment on above: Performed By: #### L [id number] ####[facility] ([facility])[address] [place] [address] Neutrophils/100 WBC (Bld) 66.4 % Normal 40.0-72.0 [facility] Comment on above: Performed By: #### L [id number] ####[facility] ([facility])[address] [place] [place] [address] NRBC (PER 100 WBCS) BY AUTOMATED COUNT 0.0 % Normal 0 [facility] Comment on above: Performed By: #### L [id number] ####[facility] ([facility])[address] [place] [place] [address] PLATELETS (10*3/UL) IN BLOOD AUTOMATED COUNT 405 10*3/uL High 150-400 [facility] Comment on above: Performed By: #### L [id number] ####[facility] ([facility])[address] [place] [address] RBC (Bld) [#/Vol] 2.74 10*6/uL Low 3.80-5.00 [facility] Comment on above: Performed By: #### L [id number] ####[facility] ([facility])[address] [place] [address] WBC (Bld) [#/Vol] 6.21 10*3/uL Normal 4.00-10.60 [facility] Comment on above: Performed By: #### L [id number] ####[facility] ([facility])[address] [place] [address] COMPREHENSIVE METABOLIC PANE Kirit 12-31-2023 Albumin [Mass/Vol] 3.2 g/dL Low 3.5-5.7 [facility] Comment on above: Performed By: #### L [id number] ####[facility] (BEAKER)[address] [place] [address] ALP [Catalytic activity/Vol] 115 U/L High 34-104 [facility] Comment on above: Performed By: #### L [id number] ####[facility] (BEAKER)[address] [place] [address] ALT [Catalytic activity/Vol] 11 U/L Normal 7-52 [facility] Comment on above: Performed By: #### L [id number] ####[facility] (BEAKER)[address] [place] [address] Anion gap [Moles/Vol] 9 mmol/L Normal 7-20 [facility] Comment on above: Performed By: #### L [id number] ####[facility] (BEAKER)[address] [place] [address] AST [Catalytic activity/Vol] 19 U/L Normal 13-39 [facility] Comment on above: Performed By: #### L [id number] ####[facility] (BEAKER)[address] [place] [address] Bilirubin [Mass/Vol] 0.3 mg/dL Normal 0.3-1.0 [facility] Comment on above: Performed By: #### L [id number] ####[facility] (BEAKER)[address] [place] [address] Calcium [Mass/Vol] 8.5 mg/dL Low 8.6-10.3 [facility] Comment on above: Performed By: #### L [id number] ####[facility] ([facility]ER)[address] [place] [address] Chloride [Moles/Vol] 104 mmol/L Normal 98-107 [facility] Comment on above: Performed By: #### L [id number] ####[facility] ([facility]ER)[address] [place] [address] CO2 [Moles/Vol] 28 mmol/L Normal 21-31 [facility] Comment on above: Performed By: #### L [id number] ####[facility] ([facility])[address] [place] [address] Creatinine [Mass/Vol] 0.66 mg/dL Normal 0.60-1.20 [facility] Comment on above: Performed By: #### L [id number] ####[facility] ([facility])[address] [place] [place] [address] GLOMERULAR FILTRATION RATE ML/MIN/1.73 SQ M.PREDICTED 99.1 mL/min/1.73m*2 Normal >60.0 [facility] Comment on above: Result Comment: The [facility]???s estimated glomerular filtration rate (eGFR) will no [...] By: #### L [id number] ####[facility] ([facility])[address] [place] [place] [address] Glucose [Mass/Vol] 112 mg/dL High 70-100 [facility] Comment on above: Performed By: #### L [id number] ####[facility] ([facility])[address] [place] [place] [address] Potassium [Moles/Vol] 4.3 mmol/L Normal 3.5-5.1 [facility] Comment on above: Performed By: #### L [id number] ####[facility] ([facility])[address] [place] [place] [address] Protein [Mass/Vol] 5.7 g/dL Low 6.0-8.3 [facility] Comment on above: Performed By: #### L [id number] ####[facility] ([facility])[address] [place] [address] Sodium [Moles/Vol] 137 mmol/L Normal 136-145 [facility] Comment on above: Performed By: #### L [id number] ####[facility] ([facility])[address] [place] [place] [address] Urea nitrogen [Mass/Vol] 17 mg/dL Normal 7-25 [facility] Comment on above: Performed By: #### L [id number] ####[facility] ([facility])[address] [place] [address] UREA NITROGEN/CREATININE (MASS RATIO) IN SER/PLAS 25.8 [facility] Comment on above: Performed By: #### L [id number] ####[facility] ([facility])[address] [place] [place] [address] 30on 12-30-2023 30 [facility] 30 [facility] DSon 12-30-2023 DS [facility] Orders Onlyon 12-30-2023 Orders Only [facility] POCT GLUCOSE METER UNSOLICIT ED RESULTSon 12-30-2023 Glucose [Mass/Vol] 164 mg/dL High 70-105 [facility] Comment on above: Order Comment: Waive d Testing in the ED is performed under the ED CLIA certificate #[id number]. Result Comment: bflo od Performed By: #### L [id number] ####[facility] ([facility])[address] [facility] [address] Glucose [Mass/Vol] 144 mg/dL High 70-105 [facility] Comment on above: Order Comment: Waive d Testing in the ED is performed under the ED CLIA certificate #[id number]. Result Comment: bflo od Performed By: #### L [id number] ####[facility] ([facility])[address] [place] [place] [address] 30on 12-29-2023 30 [facility] 30 Normal [facility] 30 [facility] BASIC METABOLIC PANELon 10-0 Anion gap [Moles/Vol] 9 mmol/L Normal 7-20 [facility] Comment on above: Performed By: #### L [id number] ####[facility] ([facility])[address] [place] [place] [address] Calcium [Mass/Vol] 8.2 mg/dL Low 8.6-10.3 [facility] Comment on above: Performed By: #### L [id number] ####[facility] ([facility])[address] [place] [place] [address] Chloride [Moles/Vol] 103 mmol/L Normal 98-107 [facility] Comment on above: Performed By: #### L [id number] ####[facility] ([facility])[address] [place] [place] [address] CO2 [Moles/Vol] 30 mmol/L Normal 21-31 [facility] Comment on above: Performed By: #### L [id number] ####[facility] ([facility])[address] [place] [place] [address] Creatinine [Mass/Vol] 0.69 mg/dL Normal 0.60-1.20 [facility] Comment on above: Performed By: #### L [id number] ####[facility] ([facility])[address] [place] [place], [place] [address] GLOMERULAR FILTRATION RATE ML/MIN/1.73 SQ M.PREDICTED 98.1 mL/min/1.73m*2 Normal >60.0 [facility] Comment on above: Result Comment: The [facility]???s estimated glomerular filtration rate (eGFR) will no [...] By: #### L [id number] ####[facility] (BEAKER)[address] [place] [address] Glucose [Mass/Vol] 164 mg/dL High 70-100 [facility] Comment on above: Performed By: #### L [id number] ####[facility] (BEAKER)[address] [place] [address] Potassium [Moles/Vol] 4.1 mmol/L Normal 3.5-5.1 [facility] Comment on above: Performed By: #### L [id number] ####[facility] (BEAKER)[address] [place] [address] Sodium [Moles/Vol] 138 mmol/L Normal 136-145 [facility] Comment on above: Performed By: #### L [id number] ####[facility] (BEAKER)[address] [place] [address] Urea nitrogen [Mass/Vol] 13 mg/dL Normal 7-25 [facility] Comment on above: Performed By: #### L [id number] ####[facility] (BEAKER)[address] [place] [address] UREA NITROGEN/CREATININE (MASS RATIO) IN SER/PLAS 18.8 Normal [facility] Comment on above: Performed By: #### L [id number] ####[facility] (BEAKER)[address] [place] [address] CBCon 12-29-2023 Erythrocyte distribution width (RBC) [Ratio] 17.5 % High 11.5-15.0 [facility] Comment on above: Performed By: #### L [id number] ####[facility] (BEAKER)[address] [place] [address] ERYTHROCYTE MEAN CORPUSCULAR HEMOGLOBIN CONCENTRATION (G/DL) BY AUTOMATED 31.7 g/dL Low 32.0-35.0 [facility] Comment on above: Performed By: #### L [id number] ####[facility] (BEAKER)[address] [place] [address] Hematocrit (Bld) [Volume fraction] 26.2 % Low 36.0-48.0 [facility] Comment on above: Performed By: #### L [id number] ####[facility] ([facility])[address] [place] [place] [address] Hemoglobin (Bld) [Mass/Vol] 8.3 g/dL Low 12.0-15.0 [facility] Comment on above: Performed By: #### L [id number] ####[facility] ([facility])[address] [place] [place] [address] MCH (RBC) [Entitic mass] 32.3 pg Normal 27.0-33.0 [facility] Comment on above: Performed By: #### L [id number] ####[facility] ([facility])[address] [place] [place] [address] MCV (RBC) [Entitic vol] 101.9 fL High 82.0-98.0 [facility] Comment on above: Performed By: #### L [id number] ####[facility] ([facility])[address] [place] [place] [address] PLATELETS (10*3/UL) IN BLOOD AUTOMATED COUNT 393 10*3/uL Normal 150-400 [facility] Comment on above: Performed By: #### L [id number] ####[facility] ([facility])[address] [place] [place] [address] RBC (Bld) [#/Vol] 2.57 10*6/uL Low 3.80-5.00 [facility] Comment on above: Performed By: #### L [id number] ####[facility] ([facility])[address] [place] [place] [address] WBC (Bld) [#/Vol] 6.00 10*3/uL Normal 4.00-10.60 [facility] Comment on above: Performed By: #### L [id number] ####[facility] ([facility])[address] [place] [address] FERRITINon 12-29-2023 FERRITIN (NG/ML) IN SER/PLAS 319.0 ng/mL High 11.0-307.0 [facility] Comment on above: Performed By: #### L [id number] ####[facility] ([facility])[address] [facility] [place] [address] MAGNESIUMon 12-29-2023 Magnesium [Mass/Vol] 2.2 mg/dL Normal 1.9-2.7 [facility] Comment on above: Performed By: #### L [id number] ####[facility] ([facility])[address] [facility] [place] [address] POCT GLUCOSE METER UNSOLICIT ED RESULTSon 12-29-2023 Glucose [Mass/Vol] 173 mg/dL High 70-105 [facility] Comment on above: Order Comment: Waive d Testing in the ED is performed under the ED CLIA certificate #[id number]. Result Comment: [email or web address] Performed By: #### L [id number] ####[facility] ([facility])[address] [facility] [place] [address] Glucose [Mass/Vol] 133 mg/dL High 70-105 [facility] Comment on above: Order Comment: Waive d Testing in the ED is performed under the ED CLIA certificate #[id number]. Result Comment: [email or web address] Performed By: #### L [id number] ####[facility] ([facility])[address] [place] [address] Glucose [Mass/Vol] 124 mg/dL High 70-105 [facility] Comment on above: Order Comment: Waive d Testing in the ED is performed under the ED CLIA certificate #[id number]. Result Comment: [email or web address] Performed By: #### L [id number] ####[facility] ([facility])[address] [place] [address] Glucose [Mass/Vol] 112 mg/dL High 70-105 [facility] Comment on above: Order Comment: Waive d Testing in the ED is performed under the ED CLIA certificate #[id number]. Result Comment: bflo od Performed By: #### L [id number] ####[facility] ([facility])[address] [place] [address] 30on 12-28-2023 30 [facility] POCT GLUCOSE METER UNSOLICIT ED RESULTSon 12-28-2023 Glucose [Mass/Vol] 166 mg/dL High 70-105 [facility] Comment on above: Order Comment: Waive d Testing in the ED is performed under the ED CLIA certificate #[id number]. Result Comment: [email or web address] Performed By: #### L [id number] ####[facility] ([facility])[address] [place] [address] Glucose [Mass/Vol] 103 mg/dL Normal 70-105 [facility] Comment on above: Order Comment: Waive d Testing in the ED is performed under the ED CLIA certificate #[id number]. Result Comment: [email or web address] Performed By: #### L [id number] ####[facility] ([facility])[address] [place] [address] Glucose [Mass/Vol] 154 mg/dL High 70-105 [facility] Comment on above: Order Comment: Waive d Testing in the ED is performed under the ED CLIA certificate #[id number]. Result Comment: [email or web address] Performed By: #### L [id number] ####[facility] ([facility])[address] [place] [address] Glucose [Mass/Vol] 128 mg/dL High 70-105 [facility] Comment on above: Order Comment: Waive d Testing in the ED is performed under the ED CLIA certificate #[id number]. Result Comment: [email or web address] Performed By: #### L [id number] ####[facility] ([facility])[address] [place] [address] 30on 12-27-2023 30 [facility] 30 [facility] BASIC METABOLIC PANELon 10-0 Anion gap [Moles/Vol] 12 mmol/L Normal 7-20 [facility] Comment on above: Performed By: #### L [id number] ####[facility] ([facility]AKER)[address] [place] [address] Calcium [Mass/Vol] 8.1 mg/dL Low 8.6-10.3 [facility] Comment on above: Performed By: #### L [id number] ####[facility] (BEAKER)[address] [place] [address] Chloride [Moles/Vol] 104 mmol/L Normal 98-107 [facility] Comment on above: Performed By: #### L [id number] ####[facility] (BEAKER)[address] [place] [address] CO2 [Moles/Vol] 24 mmol/L Normal 21-31 [facility] Comment on above: Performed By: #### L [id number] ####[facility] (BEAKER)[address] [place] [address] Creatinine [Mass/Vol] 0.69 mg/dL Normal 0.60-1.20 [facility] Comment on above: Performed By: #### L [id number] ####[facility] ([facility])[address] [place] [address] GLOMERULAR FILTRATION RATE ML/MIN/1.73 SQ M.PREDICTED 98.1 mL/min/1.73m*2 Normal >60.0 [facility] Comment on above: Result Comment: The [facility]???s estimated glomerular filtration rate (eGFR) will no [...] By: #### L [id number] ####[facility] (BEAKER)[address] [place] [address] Glucose [Mass/Vol] 107 mg/dL High 70-100 [facility] Comment on above: Performed By: #### L [id number] ####[facility] ([facility])[address] [place] [place] [address] Potassium [Moles/Vol] 4.6 mmol/L Normal 3.5-5.1 [facility] Comment on above: Performed By: #### L [id number] ####[facility] ([facility])[address] [place] [address] Sodium [Moles/Vol] 135 mmol/L Low 136-145 [facility] Comment on above: Performed By: #### L [id number] ####[facility] ([facility])[address] [place] [place] [address] Urea nitrogen [Mass/Vol] 20 mg/dL Normal 7-25 [facility] Comment on above: Performed By: #### L [id number] ####[facility] ([facility])[address] [place] [address] UREA NITROGEN/CREATININE (MASS RATIO) IN SER/PLAS 29.0 Normal [facility] Comment on above: Performed By: #### L [id number] ####[facility] ([facility])[address] [place] [place] [address] CBCon 12-27-2023 Erythrocyte distribution width (RBC) [Ratio] 17.4 % High 11.5-15.0 [facility] Comment on above: Performed By: #### L [id number] ####[facility] ([facility])[address] [place] [address] ERYTHROCYTE MEAN CORPUSCULAR HEMOGLOBIN CONCENTRATION (G/DL) BY AUTOMATED 30.4 g/dL Low 32.0-35.0 [facility] Comment on above: Performed By: #### L [id number] ####[facility] ([facility])[address] [place] [address] Hematocrit (Bld) [Volume fraction] 28.3 % Low 36.0-48.0 [facility] Comment on above: Performed By: #### L [id number] ####[facility] (BEAKER)[address] [place] [place] [address] Hemoglobin (Bld) [Mass/Vol] 8.6 g/dL Low 12.0-15.0 [facility] Comment on above: Performed By: #### L [id number] ####[facility] (BEAKER)[address] [place] [address] IMMATURE PLATELET FRACTION % 0.5 % Low 0.8-6.3 [facility] Comment on above: Performed By: #### L [id number] ####[facility] (BEAKER)[address] [place] [place] [address] MCH (RBC) [Entitic mass] 32.2 pg Normal 27.0-33.0 [facility] Comment on above: Performed By: #### L [id number] ####[facility] (BEAKER)[address] [place] [place] [address] MCV (RBC) [Entitic vol] 106.0 fL High 82.0-98.0 [facility] Comment on above: Performed By: #### L [id number] ####[facility] (BEAKER)[address] [place] [place] [address] Platelet mean volume (Bld) [Entitic vol] 8.9 fL Normal 7.5-11.5 [facility] Comment on above: Performed By: #### L [id number] ####[facility] (BE[facility]ER)[address] [place] [place] [address] PLATELETS (10*3/UL) IN BLOOD AUTOMATED COUNT 437 10*3/uL High 150-400 [facility] Comment on above: Performed By: #### L [id number] ####[facility] ([facility]ER)[address] [place] [place] [address] RBC (Bld) [#/Vol] 2.67 10*6/uL Low 3.80-5.00 [facility] Comment on above: Performed By: #### L [id number] ####[facility] (BEAKER)[address] [place] [address] WBC (Bld) [#/Vol] 7.03 10*3/uL Normal 4.00-10.60 [facility] Comment on above: Performed By: #### L [id number] ####[facility] ([facility])[address] [place] [address] MAGNESIUMon 12-27-2023 Magnesium [Mass/Vol] 2.5 mg/dL Normal 1.9-2.7 [facility] Comment on above: Performed By: #### L [id number] ####[facility] ([facility])[address] [place] [place] [address] POCT GLUCOSE METER UNSOLICIT ED RESULTSon 12-27-2023 Glucose [Mass/Vol] 100 mg/dL Normal 70-105 [facility] Comment on above: Order Comment: Waive d Testing in the ED is performed under the ED CLIA certificate #[id number]. Result Comment: [email or web address] Performed By: #### L [id number] ####[facility] ([facility])[address] [place], [place] [address] Glucose [Mass/Vol] 130 mg/dL High 70-105 [facility] Comment on above: Order Comment: Waive d Testing in the ED is performed under the ED CLIA certificate #[id number]. Result Comment: bflo od Performed By: #### L [id number] ####[facility] ([facility])[address] [place] [address] Glucose [Mass/Vol] 174 mg/dL High 70-105 [facility] Comment on above: Order Comment: Waive d Testing in the ED is performed under the ED CLIA certificate #[id number]. Result Comment: bflo od Performed By: #### L [id number] ####[facility] ([facility])[address] [place] [address] Glucose [Mass/Vol] 131 mg/dL High 70-105 [facility] Comment on above: Order Comment: Waive d Testing in the ED is performed under the ED CLIA certificate #[id number]. Result Comment: bflo od Performed By: #### L [id number] ####[facility] ([place])[address] [place] [address] 30on 12-26-2023 30 Normal [facility] POCT GLUCOSE METER UNSOLICIT ED RESULTSon 12-26-2023 Glucose [Mass/Vol] 144 mg/dL High 70-105 [facility] Comment on above: Order Comment: Waive d Testing in the ED is performed under the ED CLIA certificate #[id number]. Result Comment: [email or web address] Performed By: #### L [id number] ####[facility] ([facility])[address] [place] [address] Glucose [Mass/Vol] 161 mg/dL High 70-105 [facility] Comment on above: Order Comment: Waive d Testing in the ED is performed under the ED CLIA certificate #[id number]. Result Comment: cgro ll Performed By: #### L [id number] ####[facility] ([facility])[address] [place] [address] Glucose [Mass/Vol] 118 mg/dL High 70-105 [facility] Comment on above: Order Comment: Waive d Testing in the ED is performed under the ED CLIA certificate #[id number]. Result Comment: [email or web address] Performed By: #### L [id number] ####[facility] [facility] [place] [address] Glucose [Mass/Vol] 128 mg/dL High 70-105 [facility] Comment on above: Order Comment: Waive d Testing in the ED is performed under the ED CLIA certificate #[id number]. Result Comment: [email or web address] Performed By: #### L [id number] ####[facility] ([facility])[address] [place] [address] 30on 12-25-2023 30 The patient is Moder ately Stable - Low risk of patient condition declining or worsening The patient's goals for the shift include no pain The clinical goals for the shift include vss/pain control [facility] 30 [facility] NURSNOTEon 12-25-2023 NURSNOTE [facility] POCT GLUCOSE METER UNSOLICIT ED RESULTSon 12-25-2023 Glucose [Mass/Vol] 115 mg/dL High 70-105 [facility] Comment on above: Order Comment: Waive d Testing in the ED is performed under the ED CLIA certificate #[id number]. Result Comment: larry morrow Performed By: #### L [id number] ####[facility] ([facility])[address] [place] [address] Glucose [Mass/Vol] 118 mg/dL High 70-105 [facility] Comment on above: Order Comment: Waive d Testing in the ED is performed under the ED CLIA certificate #[id number]. Result Comment: [email or web address] Performed By: #### L [id number] ####[facility] ([facility])[address] [place] [address] Glucose [Mass/Vol] 169 mg/dL High 70-105 [facility] Comment on above: Order Comment: Waive d Testing in the ED is performed under the ED CLIA certificate #[id number]. Result Comment: [email or web address] Performed By: #### L [id number] ####[facility] ([facility] [facility] [place] [address] Glucose [Mass/Vol] 126 mg/dL High 70-105 [facility] Comment on above: Order Comment: Waive d Testing in the ED is performed under the ED CLIA certificate #[id number]. Result Comment: [email or web address] Performed By: #### L [id number] ####[facility] ([facility])[address] [place] [address] 30on 12-24-2023 30 [facility] 30 The patient is Moder ately Stable - Low risk of patient condition declining or worsening The patient's goals for the shift include comfort The clinical goals for the shift include safety [facility] AFB CULTUREon 12-24-2023 AFB CULTURE No growth at 42 days Normal [facility] Comment on above: Performed By: #### L [id number] ####[facility] ([facility])[address] [place] [address] AFB STAIN No acid fast bacilli seen Normal [facility] Comment on above: Performed By: #### L [id number] ####[facility] ([facility] [place] [address] AMYLASE, BODY FLUIDon 2023 AMYLASE (U/L) IN BODY FLUID <10 Normal [facility] Comment on above: Result Comment: The reference range and other method performance specifications have not been established for this test in fluids. the test result should be integrated into the clinical context for interpretation. Performed By: #### L [id number] ####[facility] ([facility])[address] [place] [address] BODY FLUID CELL DIFFERENTIAL on 12-24-2023 BASOPHILS TOTAL PER COUNTED LEUKOCYTES IN BODY FLUID BY MANUAL COUNT 2 Normal [facility] Comment on above: Order Comment: Diffe rential performed on cytospin Performed By: #### L [id number] ####[facility] ([facility])[address] [place] [address] CELLS COUNTED TOTAL (#) IN BODY FLUID 100 Normal [facility] Comment on above: Order Comment: Diffe rential performed on cytospin Performed By: #### L [id number] ####[facility] ([facility])[address] [place] [address] EOSINOPHILS TOTAL PER COUNTED LEUKOCYTES IN BODY FLUID BY MANUAL COUNT 4 Normal [facility] Comment on above: Order Comment: Diffe rential performed on cytospin Performed By: #### L [id number] ####[facility] ([facility])[address] [place] [address] LYMPHOCYTES TOTAL PER COUNTED LEUKOCYTES IN BODY FLUID BY MANUAL COUNT 9 Normal [facility] Comment on above: Order Comment: Diffe rential performed on cytospin Performed By: #### L [id number] ####[facility] ([facility])[address] [place] [address] MESOTHELIAL CELLS TOTAL PER COUNTED LEUKOCYTES IN BODY FLUID BY MANUAL COUN 5 Normal [facility] Comment on above: Order Comment: Diffe rential performed on cytospin Performed By: #### L [id number] ####[facility] ([facility])[address] [place] [address] MONOCYTES+MACROPHAGES TOTAL PER COUNTED LEUKOCYTES IN BODY FLUID BY MANUAL [facility] Comment on above: Order Comment: Diffe rential performed on cytospin Performed By: #### L [id number] ####[facility] ([facility])[address] [place] [address] NEUTROPHILS TOTAL PER COUNTED LEUKOCYTES IN BODY FLUID BY MANUAL COUNT 80 Normal [facility] Comment on above: Order Comment: Diffe rential performed on cytospin Performed By: #### L [id number] ####[facility] ([facility])[address] [place] [address] OTHER CELLS BODY FLUID (MANUAL) [facility] Comment on above: Order Comment: Diffe rential performed on cytospin Performed By: #### L [id number] ####[facility] ([facility] [place] [address] BODY FLUID CULTUREon 024 Bacteria identified Cx Nom (Unsp spec) No growth at 5 days [facility] Comment on above: Performed By: #### L [id number] ####[facility] ([facility])[address] [facility] [place] [address] GRAM STAIN RESULT Normal [facility] Comment on above: Result Comment: Poly morphonuclear leukocytesNo organisms seenCytocentrifuge sample Performed By: #### L [id number] ####[facility] ([facility])[address] [place] [address] CHOLESTEROL, BODY FLUIDon CHOLESTEROL (MG/DL) IN BODY FLUID 37 mg/dL Normal [facility] Comment on above: Performed By: #### L [id number] ####[facility] ([facility])[address] [place] [address] CONSULTon 12-24-2023 CONSULT Normal [facility] FUNGAL CULTUREon 12-24-2023 FUNGAL SMEAR No yeast or fungal elements seen Normal [facility] Comment on above: Performed By: #### L [id number] ####[facility] ([facility])[address] [place] [address] GLUCOSE, BODY FLUIDon 2023 GLUCOSE (MG/DL) IN BODY FLUID 88 mg/dL Normal [facility] Comment on above: Result Comment: The reference range and other method performance specifications have not been established for this test in fluids. the test result should be integrated into the clinical context for interpretation. Performed By: #### L [id number] ####[facility] ([facility])[address] [place] [address] GLUCOSE, RANDOMon 12-24-2023 Glucose [Mass/Vol] 121 mg/dL High 70-100 [facility] Comment on above: Performed By: #### L [id number] ####[facility] ([facility])[address] [place] [address] HEPATIC FUNCTION PANELon Albumin [Mass/Vol] 3.4 g/dL Low 3.5-5.7 [facility] Comment on above: Performed By: #### L [id number] ####[facility] ([facility])[address] [place] [address] ALP [Catalytic activity/Vol] 133 U/L High 34-104 [facility] Comment on above: Performed By: #### L [id number] ####[facility] ([facility])[address] [place] [address] ALT [Catalytic activity/Vol] 22 U/L Normal 7-52 [facility] Comment on above: Performed By: #### L [id number] ####[facility] ([facility])[address] [place] [address] AST [Catalytic activity/Vol] 28 U/L Normal 13-39 [facility] Comment on above: Performed By: #### L [id number] ####[facility] ([facility])[address] [place] [place] [address] Bilirubin [Mass/Vol] 0.4 mg/dL Normal 0.3-1.0 [facility] Comment on above: Performed By: #### L [id number] ####[facility] ([facility])[address] [place] [address] Magnesium [Mass/Vol] 0.1 mg/dL Normal 0-0.2 [facility] Comment on above: Performed By: #### L [id number] ####[facility] ([facility])[address] [place] [address] Protein [Mass/Vol] 6.1 g/dL Normal 6.0-8.3 [facility] Comment on above: Performed By: #### L [id number] ####[facility] ([facility])[address] [place] [address] LACTATE DEHYDROGENASEon LACTATE DEHYDROGENASE (U/L) IN SER/PLAS BY LAC->PYR RXN 240 U/L Normal 140-271 [facility] Comment on above: Performed By: #### L [id number] ####[facility] ([facility])[address] [place] [address] LACTATE DEHYDROGENASE, BODY FLUIDon 12-24-2023 LACTATE DEHYDROGENASE (U/L) IN BODY FLUID BY LAC->PYR 756 U/L Normal [facility] Comment on above: Result Comment: The reference range and other method performance specifications have not been established for this test in fluids. the test result should be integrated into the clinical context for interpretation. Performed By: #### L [id number] ####[facility] ([facility])[address] [place], [place] [address] NON-CAR DELIVERER CYTOLOGY - CELLULAR EXAMon 12-24-2023 LAB AP CASE REPORT Normal [facility] Comment on above: Result Comment: Non- gynecologic Cytology Case: [id number] Provider: Rian Butts MD Collected: 12/24/2023 1626Ordering [facility] Received: 12/25/2023 1238Pathologist: BRIANA Neripecimen: Pleural fluid, left Performed By: #### L [id number] ####[facility] ([facility])[address] [place] [address] LAB AP CLINICAL INFORMATION [facility] Comment on above: Result Comment: Left pleural effusion Performed By: #### L [id number] ####[facility] ([facility])[address] [place] [address] LAB AP GROSS DESCRIPTION [facility] Comment on above: Result Comment: 400 mL cloudy, red fluid Performed By: #### L [id number] ####[facility] ([facility])[address] [place] [address] LAB AP REPORT FINAL DIAGNOSIS NARRATIVE [facility] Comment on above: Result Comment: A. P leural fluid, left: - Negative for malignancy. - Marked acute inflammation. Performed By: #### L [id number] ####[facility] ([facility])[address] [place] [address] PATHOLOGY REVIEWon PATHOLOGY REVIEW Reviewed. Normal [facility] Comment on above: Result Comment: Elec tronically signed by Jarrod Sales MD on 12/25/23 at 2:30 PM. Performed By: #### L [id number] ####[facility] ([facility])[address] [place] [address] POCT GLUCOSE METER UNSOLICIT ED RESULTSon 12-24-2023 Glucose [Mass/Vol] 176 mg/dL High 70-105 [facility] Comment on above: Order Comment: Waive d Testing in the ED is performed under the ED CLIA certificate #[id number]. Result Comment: [email or web address] Performed By: #### L [id number] ####[facility] ([facility])[address] [place] [address] Glucose [Mass/Vol] 135 mg/dL High 70-105 [facility] Comment on above: Order Comment: Waive d Testing in the ED is performed under the ED CLIA certificate #[id number]. Result Comment: [email or web address] Performed By: #### L [id number] ####[facility] ([facility])[address] [place] [address] Glucose [Mass/Vol] 128 mg/dL High 70-105 [facility] Comment on above: Order Comment: Waive d Testing in the ED is performed under the ED CLIA certificate #[id number]. Result Comment: [email or web address] Performed By: #### L [id number] ####[facility] ([facility])[address] [place] [address] PROTEIN, BODY FLUIDon 2023 Protein (Body fld) [Mass/Vol] 3.6 g/dL Normal [facility] Comment on above: Result Comment: The reference range and other method performance specifications have not been established for this test in fluids. the test result should be integrated into the clinical context for interpretation. Performed By: #### L [id number] ####[facility] ([facility])[address] [place] [address] PROTIME-INRon 12-24-2023 INR IN PPP BY COAGULATION ASSAY 1.28 High 0.90-1.10 [facility] Comment on above: Result Comment: ACCC P [...] By: #### L [id number] ####[facility] ([facility])[address] [place] [address] PROTHROMBIN TIME (PT) IN PPP BY COAGULATION ASSAY 15.9 Seconds High 12.3-14.8 [facility] Comment on above: Performed By: #### L [id number] ####[facility] ([facility])[address] [place] [place] [address] TRIGLYCERIDES, BODY FLUIDon 12-24-2023 TRIGLYCERIDES (MG/DL) IN BODY FLUID 25 mg/dL Normal [facility] Comment on above: Performed By: #### L [id number] ####[facility] ([facility]ER)[address] [place] [address] VITAMIN Con 12-24-2023 VITAMIN C LEVEL 54 umol/L Normal 23-114 [facility] Comment on above: Result Comment: Rachael min C concentrations lower than 11 umol/L indicate deficiency.Concentrations between 11 and 23 umol/L are consistent with amoderate risk of deficiency due to inadequate tissue stores.Vitamin C concentration is reported as micromoles per liter(umol/L). To convert concentration to milligrams per deciliter(mg/dL), multiply the result by 0.0176.This test was developed and its performance characteristicsdetermined by [facility]. It has not been cleared orapproved by the [place] Food and Drug Administration. This test wasperformed in a CLIA certified laboratory and is intended forclinical purposes.Performed By: [facility] [place], [place] [email or web address] Director: Leeroy Shah MD, PhDCLIA Number: [id number] Performed By: #### L [id number] ####[facility] ([facility])[address] [place] [address] 30on 12-23-2023 30 Normal [facility] 30 Normal [facility] 30 Normal [facility] 30 The patient is Moder ately Stable - Low risk of patient condition declining or worsening The patient's goals for the shift include comfort The clinical goals for the shift include safety Normal [facility] BASIC METABOLIC PANELon 10-0 Anion gap [Moles/Vol] 9 mmol/L Normal 7-20 [facility] Comment on above: Performed By: #### L [id number] ####[facility] ([facility])[address] [place] [place] [address] Calcium [Mass/Vol] 7.9 mg/dL Low 8.6-10.3 [facility] Comment on above: Performed By: #### L [id number] ####[facility] ([facility])[address] [place] [address] Chloride [Moles/Vol] 105 mmol/L Normal 98-107 [facility] Comment on above: Performed By: #### L [id number] ####[facility] ([facility])[address] [place] [address] CO2 [Moles/Vol] 26 mmol/L Normal 21-31 [facility] Comment on above: Performed By: #### L [id number] ####[facility] ([facility])[address] [place] [address] Creatinine [Mass/Vol] 0.71 mg/dL Normal 0.60-1.20 [facility] Comment on above: Performed By: #### L [id number] ####[facility] ([facility])[address] [place] [address] GLOMERULAR FILTRATION RATE ML/MIN/1.73 SQ M.PREDICTED 96.1 mL/min/1.73m*2 Normal >60.0 [facility] Comment on above: Result Comment: The [facility]???s estimated glomerular filtration rate (eGFR) will no [...] By: #### L [id number] ####[facility] ([facility])[address] [place] [address] Glucose [Mass/Vol] 76 mg/dL Normal 70-100 [facility] Comment on above: Performed By: #### L [id number] ####[facility] ([facility])[address] [facility] [place] [address] Potassium [Moles/Vol] 4.4 mmol/L Normal 3.5-5.1 [facility] Comment on above: Performed By: #### L [id number] ####[facility] ([facility])[address] [facility] [place] [address] Sodium [Moles/Vol] 136 mmol/L Normal 136-145 [facility] Comment on above: Performed By: #### L [id number] ####[facility] ([facility])[address] [facility] [place] [address] Urea nitrogen [Mass/Vol] 17 mg/dL Normal 7-25 [facility] Comment on above: Performed By: #### L [id number] ####[facility] ([facility])[address] [place] [address] UREA NITROGEN/CREATININE (MASS RATIO) IN SER/PLAS 23.9 Normal [facility] Comment on above: Performed By: #### L [id number] ####[facility] ([facility])[address] [facility] [place] [address] CBCon 12-23-2023 Erythrocyte distribution width (RBC) [Ratio] 15.7 % High 11.5-15.0 [facility] Comment on above: Performed By: #### L [id number] ####[facility] ([facility])[address] [facility] [place] [address] ERYTHROCYTE MEAN CORPUSCULAR HEMOGLOBIN CONCENTRATION (G/DL) BY AUTOMATED 31.6 g/dL Low 32.0-35.0 [facility] Comment on above: Performed By: #### L [id number] ####[facility] (BEAKER)[address] [place] [address] Hematocrit (Bld) [Volume fraction] 22.5 % Low 36.0-48.0 [facility] Comment on above: Performed By: #### L [id number] ####[facility] ([facility]ER)[address] [place] [address] Hemoglobin (Bld) [Mass/Vol] 7.1 g/dL Low 12.0-15.0 [facility] Comment on above: Performed By: #### L [id number] ####[facility] ([facility])[address] [place] [address] MCH (RBC) [Entitic mass] 32.0 pg Normal 27.0-33.0 [facility] Comment on above: Performed By: #### L [id number] ####[facility] ([facility])[address] [place] [address] MCV (RBC) [Entitic vol] 101.4 fL High 82.0-98.0 [facility] Comment on above: Performed By: #### L [id number] ####[facility] ([facility])[address] [place] [address] PLATELETS (10*3/UL) IN BLOOD AUTOMATED COUNT 355 10*3/uL Normal 150-400 [facility] Comment on above: Performed By: #### L [id number] ####[facility] ([facility] [place] [address] RBC (Bld) [#/Vol] 2.22 10*6/uL Low 3.80-5.00 [facility] Comment on above: Performed By: #### L [id number] ####[facility] ([facility])[address] [place] [address] WBC (Bld) [#/Vol] 8.18 10*3/uL Normal 4.00-10.60 [facility] Comment on above: Performed By: #### L [id number] ####[facility] ([facility])[address] [place] [address] CT CHEST WO IV CONTRASTon CT CHEST WO IV CONTRAST Invalid Interpretation Code [facility] MAGNESIUMon 12-23-2023 Magnesium [Mass/Vol] 2.4 mg/dL Normal 1.9-2.7 [facility] Comment on above: Performed By: #### L [id number] ####[facility] ([facility])[address] [place] [address] POCT GLUCOSE METER UNSOLICIT ED RESULTSon 12-23-2023 Glucose [Mass/Vol] 143 mg/dL High 70-105 [facility] Comment on above: Order Comment: Waive d Testing in the ED is performed under the ED CLIA certificate #[id number]. Result Comment: larry morrow Performed By: #### L [id number] ####[facility] ([facility])[address] [place] [address] Glucose [Mass/Vol] 159 mg/dL High 70-105 [facility] Comment on above: Order Comment: Waive d Testing in the ED is performed under the ED CLIA certificate #[id number]. Result Comment: shelby [email or web address] Performed By: #### L [id number] ####[facility] ([facility])[address] [facility] [place] [address] Glucose [Mass/Vol] 130 mg/dL High 70-105 [facility] Comment on above: Order Comment: Waive d Testing in the ED is performed under the ED CLIA certificate #[id number]. Result Comment: [email or web address] Performed By: #### L [id number] ####[facility] ([facility])[address] [place] [address] Glucose [Mass/Vol] 118 mg/dL High 70-105 [facility] Comment on above: Order Comment: Waive d Testing in the ED is performed under the ED CLIA certificate #[id number]. Result Comment: [email or web address] Performed By: #### L [id number] ####[facility] ([facility])[address] [place] [address] VITAMIN Con 12-23-2023 VITAMIN C LEVEL 43 umol/L Normal 23-114 [facility] Comment on above: Result Comment: Rachael min C concentrations lower than 11 umol/L indicate deficiency.Concentrations between 11 and 23 umol/L are consistent with amoderate risk of deficiency due to inadequate tissue stores.Vitamin C concentration is reported as micromoles per liter(umol/L). To convert concentration to milligrams per deciliter(mg/dL), multiply the result by 0.0176.This test was developed and its performance characteristicsdetermined by [facility]. It has not been cleared orapproved by the [place] Food and Drug Administration. This test wasperformed in a CLIA certified laboratory and is intended forclinical purposes.Performed By: [facility] [place], [place] [address]Kzjiswtzof Director: Leeroy Shah MD, PhDCLIA Number: [id number] Performed By: #### L [id number] ####[facility] ([facility] [place] [address] 30on 12-22-2023 30 Normal [facility] 30 Normal [facility] 30 The patient is Moder ately Stable - Low risk of patient condition declining or worsening The patient's goals for the shift include comfort The clinical goals for the shift include safety Normal [facility] BASIC METABOLIC PANELon 11-24 Anion gap [Moles/Vol] 11 mmol/L Normal 7-20 [facility] Comment on above: Performed By: #### L [id number] ####[facility] ([facility]AKER)[address] [place] [address] Calcium [Mass/Vol] 8.2 mg/dL Low 8.6-10.3 [facility] Comment on above: Performed By: #### L [id number] ####[facility] ([facility]AKER)[address] [place] [address] Chloride [Moles/Vol] 103 mmol/L Normal 98-107 [facility] Comment on above: Performed By: #### L [id number] ####[facility] ([facility]ER)[address] [place] [address] CO2 [Moles/Vol] 28 mmol/L Normal 21-31 [facility] Comment on above: Performed By: #### L [id number] ####[facility] ([facility]ER)[address] [place] [address] Creatinine [Mass/Vol] 0.71 mg/dL Normal 0.60-1.20 [facility] Comment on above: Performed By: #### L [id number] ####[facility] ([facility])[address] [place] [address] GLOMERULAR FILTRATION RATE ML/MIN/1.73 SQ M.PREDICTED 96.1 mL/min/1.73m*2 Normal >60.0 [facility] Comment on above: Result Comment: The [facility]???s estimated glomerular filtration rate (eGFR) will no [...] By: #### L [id number] ####[facility] ([facility])[address] [place] [address] Glucose [Mass/Vol] 103 mg/dL High 70-100 [facility] Comment on above: Performed By: #### L [id number] ####[facility] ([facility])[address] [place] [address] Potassium [Moles/Vol] 3.7 mmol/L Normal 3.5-5.1 [facility] Comment on above: Performed By: #### L [id number] ####[facility] ([facility])[address] [place] [address] Sodium [Moles/Vol] 138 mmol/L Normal 136-145 [facility] Comment on above: Performed By: #### L [id number] ####[facility] ([facility])[address] [place] [place] [address] Urea nitrogen [Mass/Vol] 16 mg/dL Normal 7-25 [facility] Comment on above: Performed By: #### L [id number] ####[facility] ([facility])[address] [place] [place] [address] UREA NITROGEN/CREATININE (MASS RATIO) IN SER/PLAS 22.5 Normal [facility] Comment on above: Performed By: #### L [id number] ####[facility] ([facility])[address] [place] [place] [address] CBCon 12-22-2023 Erythrocyte distribution width (RBC) [Ratio] 14.5 % Normal 11.5-15.0 [facility] Comment on above: Performed By: #### L [id number] ####[facility] ([facility])[address] [place] [place] [address] ERYTHROCYTE MEAN CORPUSCULAR HEMOGLOBIN CONCENTRATION (G/DL) BY AUTOMATED 31.5 g/dL Low 32.0-35.0 [facility] Comment on above: Performed By: #### L [id number] ####[facility] ([facility])[address] [place] [address] Hematocrit (Bld) [Volume fraction] 25.1 % Low 36.0-48.0 [facility] Comment on above: Performed By: #### L [id number] ####[facility] ([facility])[address] [place] [address] Hemoglobin (Bld) [Mass/Vol] 7.9 g/dL Low 12.0-15.0 [facility] Comment on above: Performed By: #### L [id number] ####[facility] ([facility])[address] [place] [address] MCH (RBC) [Entitic mass] 32.1 pg Normal 27.0-33.0 [facility] Comment on above: Performed By: #### L [id number] ####[facility] ([facility])[address] [place] [address] MCV (RBC) [Entitic vol] 102.0 fL High 82.0-98.0 [facility] Comment on above: Performed By: #### L [id number] ####[facility] ([facility])[address] [place] [address] PLATELETS (10*3/UL) IN BLOOD AUTOMATED COUNT 338 10*3/uL Normal 150-400 [facility] Comment on above: Performed By: #### L [id number] ####[facility] ([facility])[address] [place] [address] RBC (Bld) [#/Vol] 2.46 10*6/uL Low 3.80-5.00 [facility] Comment on above: Performed By: #### L [id number] ####[facility] ([facility])[address] [place] [address] WBC (Bld) [#/Vol] 7.31 10*3/uL Normal 4.00-10.60 [facility] Comment on above: Performed By: #### L [id number] ####[facility] ([facility])[address] [place] [address] MAGNESIUMon 12-22-2023 Magnesium [Mass/Vol] 2.2 mg/dL Normal 1.9-2.7 [facility] Comment on above: Performed By: #### L [id number] ####[facility] ([facility])[address] [place] [address] POCT GLUCOSE METER UNSOLICIT ED RESULTSon 12-22-2023 Glucose [Mass/Vol] 158 mg/dL High 70-105 [facility] Comment on above: Order Comment: Waive d Testing in the ED is performed under the ED CLIA certificate #[id number]. Result Comment: [email or web address] Performed By: #### L [id number] ####[facility] ([facility])[address] [place] [address] Glucose [Mass/Vol] 129 mg/dL High 70-105 [facility] Comment on above: Order Comment: Waive d Testing in the ED is performed under the ED CLIA certificate #[id number]. Result Comment: bflo od Performed By: #### L [id number] ####[facility] ([facility])[address] [place] [address] Glucose [Mass/Vol] 175 mg/dL High 70-105 [facility] Comment on above: Order Comment: Waive d Testing in the ED is performed under the ED CLIA certificate #[id number]. Result Comment: [email or web address] Performed By: #### L [id number] ####[facility] ([facility])[address] [facility] [place] [address] Glucose [Mass/Vol] 100 mg/dL Normal 70-105 [facility] Comment on above: Order Comment: Waive d Testing in the ED is performed under the ED CLIA certificate #[id number]. Result Comment: [email or web address] Performed By: #### L [id number] ####[facility] ([facility])[address] [place] [address] VITAMIN Con 12-22-2023 VITAMIN C LEVEL 35 umol/L Normal 23-114 [facility] Comment on above: Result Comment: Rachael min C concentrations lower than 11 umol/L indicate deficiency.Concentrations between 11 and 23 umol/L are consistent with amoderate risk of deficiency due to inadequate tissue stores.Vitamin C concentration is reported as micromoles per liter(umol/L). To convert concentration to milligrams per deciliter(mg/dL), multiply the result by 0.0176.This test was developed and its performance characteristicsdetermined by [facility]. It has not been cleared orapproved by the [place] Food and Drug Administration. This test wasperformed in a CLIA certified laboratory and is intended forclinical purposes.Performed By: [facility] [place] [address] [id number] Director: Leeroy Shah MD, PhDCLIA Number: [id number] Performed By: #### L [id number] ####[facility] ([facility])[address] [place] [address] 30on 12-21-2023 30 Normal [facility] 30 Normal [facility] BASIC METABOLIC PANELon 11-23 Anion gap [Moles/Vol] 11 mmol/L Normal 7-20 [facility] Comment on above: Performed By: #### L [id number] ####[facility] ([facility])[address] [place] [address] Calcium [Mass/Vol] 8.0 mg/dL Low 8.6-10.3 [facility] Comment on above: Performed By: #### L [id number] ####[facility] ([facility])[address] [place] [address] Chloride [Moles/Vol] 104 mmol/L Normal 98-107 [facility] Comment on above: Performed By: #### L [id number] ####[facility] ([facility])[address] [place] [address] CO2 [Moles/Vol] 26 mmol/L Normal 21-31 [facility] Comment on above: Performed By: #### L [id number] ####[facility] ([facility])[address] [place] [address] Creatinine [Mass/Vol] 0.62 mg/dL Normal 0.60-1.20 [facility] Comment on above: Performed By: #### L [id number] ####[facility] ([facility])[address] [place] [address] GLOMERULAR FILTRATION RATE ML/MIN/1.73 SQ M.PREDICTED 100.6 mL/min/1.73m*2 Normal >60.0 [facility] Comment on above: Result Comment: The [facility]???s estimated glomerular filtration rate (eGFR) will no [...] By: #### L [id number] ####[facility] ([facility])[address] [place] [address] Glucose [Mass/Vol] 93 mg/dL Normal 70-100 [facility] Comment on above: Performed By: #### L [id number] ####[facility] ([facility])[address] [place] [address] Potassium [Moles/Vol] 4.2 mmol/L Normal 3.5-5.1 [facility] Comment on above: Performed By: #### L [id number] ####[facility] ([facility])[address] [place] [address] Sodium [Moles/Vol] 137 mmol/L Normal 136-145 [facility] Comment on above: Performed By: #### L [id number] ####[facility] ([facility])[address] [place] [address] Urea nitrogen [Mass/Vol] 17 mg/dL Normal 7-25 [facility] Comment on above: Performed By: #### L [id number] ####[facility] ([facility])[address] [place] [address] UREA NITROGEN/CREATININE (MASS RATIO) IN SER/PLAS 27.4 Normal [facility] Comment on above: Performed By: #### L [id number] ####[facility] ([facility])[address] [place] [address] CBCon 12-21-2023 Erythrocyte distribution width (RBC) [Ratio] 14.2 % Normal 11.5-15.0 [facility] Comment on above: Performed By: #### L [id number] ####[facility] ([facility])[address] [place] [address] ERYTHROCYTE MEAN CORPUSCULAR HEMOGLOBIN CONCENTRATION (G/DL) BY AUTOMATED 31.1 g/dL Low 32.0-35.0 [facility] Comment on above: Performed By: #### L [id number] ####[facility] ([facility])[address] [place] [place] [address] Hematocrit (Bld) [Volume fraction] 21.9 % Low 36.0-48.0 [facility] Comment on above: Performed By: #### L [id number] ####[facility] ([facility])[address] [place] [place] [address] Hemoglobin (Bld) [Mass/Vol] 6.8 g/dL Low 12.0-15.0 [facility] Comment on above: Performed By: #### L [id number] ####[facility] ([facility])[address] [place] [place] [address] MCH (RBC) [Entitic mass] 31.1 pg Normal 27.0-33.0 [facility] Comment on above: Performed By: #### L [id number] ####[facility] ([facility])[address] [place] [place] [address] MCV (RBC) [Entitic vol] 100.0 fL High 82.0-98.0 [facility] Comment on above: Performed By: #### L [id number] ####[facility] ([facility])[address] [place] [place] [address] PLATELETS (10*3/UL) IN BLOOD AUTOMATED COUNT 300 10*3/uL Normal 150-400 [facility] Comment on above: Performed By: #### L [id number] ####[facility] ([facility])[address] [place] [place] [address] RBC (Bld) [#/Vol] 2.19 10*6/uL Low 3.80-5.00 [facility] Comment on above: Performed By: #### L [id number] ####[facility] ([facility])[address] [place] [place] [address] WBC (Bld) [#/Vol] 6.04 10*3/uL Normal 4.00-10.60 [facility] Comment on above: Performed By: #### L [id number] ####[facility] ([facility])[address] [place] [address] MAGNESIUMon 12-21-2023 Magnesium [Mass/Vol] 2.3 mg/dL Normal 1.9-2.7 [facility] Comment on above: Performed By: #### L [id number] ####[facility] ([facility])[address] [place] [address] POCT GLUCOSE METER UNSOLICIT ED RESULTSon 12-21-2023 Glucose [Mass/Vol] 189 mg/dL High 70-105 [facility] Comment on above: Order Comment: Waive d Testing in the ED is performed under the ED CLIA certificate #[id number]. Result Comment: [email or web address] Performed By: #### L [id number] ####[facility] ([facility])[address] [place] [address] Glucose [Mass/Vol] 85 mg/dL Normal 70-105 [facility] Comment on above: Order Comment: Waive d Testing in the ED is performed under the ED CLIA certificate #[id number]. Result Comment: [email or web address] Performed By: #### L [id number] ####[facility] ([facility])[address] [place] [address] Glucose [Mass/Vol] 229 mg/dL High 70-105 [facility] Comment on above: Order Comment: Waive d Testing in the ED is performed under the ED CLIA certificate #[id number]. Result Comment: [email or web address] Performed By: #### L [id number] ####[facility] ([facility])[address] [place] [address] Glucose [Mass/Vol] 142 mg/dL High 70-105 [facility] Comment on above: Order Comment: Waive d Testing in the ED is performed under the ED CLIA certificate #[id number]. Result Comment: [email or web address] Performed By: #### L [id number] ####[facility] ([facility])[address] [place] [address] VITAMIN Con 12-21-2023 VITAMIN C LEVEL 24 umol/L Normal 23-114 [facility] Comment on above: Result Comment: Rachael min C concentrations lower than 11 umol/L indicate deficiency.Concentrations between 11 and 23 umol/L are consistent with amoderate risk of deficiency due to inadequate tissue stores.Vitamin C concentration is reported as micromoles per liter(umol/L). To convert concentration to milligrams per deciliter(mg/dL), multiply the result by 0.0176.This test was developed and its performance characteristicsdetermined by [facility]. It has not been cleared orapproved by the [place] Food and Drug Administration. This test wasperformed in a CLIA certified laboratory and is intended forclinical purposes.Performed By: [facility] [place] [address] [id number] Director: Leeroy Shah MD, PhDCLIA Number: [id number] Performed By: #### L [id number] ####[facility] ([facility])[address] [place] [address] MAGNESIUMon 12-20-2023 Magnesium [Mass/Vol] 2.2 mg/dL Normal 1.9-2.7 [facility] Comment on above: Performed By: #### L [id number] ####[facility] ([facility])[address] [place] [address] POCT GLUCOSE METER UNSOLICIT ED RESULTSon 12-20-2023 Glucose [Mass/Vol] 140 mg/dL High 70-105 [facility] Comment on above: Order Comment: Waive d Testing in the ED is performed under the ED CLIA certificate #[id number]. Result Comment: [email or web address] Performed By: #### L [id number] ####[facility] ([facility])[address] [place] [address] Glucose [Mass/Vol] 152 mg/dL High 70-105 [facility] Comment on above: Order Comment: Waive d Testing in the ED is performed under the ED CLIA certificate #[id number]. Result Comment: [email or web address] dic Performed By: #### L [id number] ####[facility] ([facility])[address] [place] [address] Glucose [Mass/Vol] 193 mg/dL High 70-105 [facility] Comment on above: Order Comment: Waive d Testing in the ED is performed under the ED CLIA certificate #[id number]. Result Comment: [email or web address] dic Performed By: #### L [id number] ####[facility] ([facility])[address] [place] [address] Glucose [Mass/Vol] 119 mg/dL High 70-105 [facility] Comment on above: Order Comment: Waive d Testing in the ED is performed under the ED CLIA certificate #[id number]. Result Comment: [email or web address] dic Performed By: #### L [id number] ####[facility] ([facility])[address] [place] [address] 30on 12-19-2023 30 The patient is Moder ately Stable - Low risk of patient condition declining or worsening The patient's goals for the shift include comfort The clinical goals for the shift include safety Normal [facility] 30 Normal [facility] 30 Normal [facility] 30 Normal [facility] BASIC METABOLIC PANELon 11-23 Anion gap [Moles/Vol] 7 mmol/L Normal 7-20 [facility] Comment on above: Performed By: #### L [id number] ####[facility] ([facility])[address] [place] [address] Calcium [Mass/Vol] 8.1 mg/dL Low 8.6-10.3 [facility] Comment on above: Performed By: #### L [id number] ####[facility] ([facility])[address] [place] [address] Chloride [Moles/Vol] 103 mmol/L Normal 98-107 [facility] Comment on above: Performed By: #### L [id number] ####[facility] ([facility])[address] [place] [address] CO2 [Moles/Vol] 27 mmol/L Normal 21-31 [facility] Comment on above: Performed By: #### L [id number] ####[facility] ([facility])[address] [place] [place] [address] Creatinine [Mass/Vol] 0.65 mg/dL Normal 0.60-1.20 [facility] Comment on above: Performed By: #### L [id number] ####[facility] ([facility])[address] [place] [place] [address] GLOMERULAR FILTRATION RATE ML/MIN/1.73 SQ M.PREDICTED 99.5 mL/min/1.73m*2 Normal >60.0 [facility] Comment on above: Result Comment: [facility]???s estimated glomerular filtration rate (eGFR) will no [...] By: #### L [id number] ####[facility] ([facility])[address] [place] [place] [address] Glucose [Mass/Vol] 116 mg/dL High 70-100 [facility] Comment on above: Performed By: #### L [id number] ####[facility] ([facility])[address] [place] [place] [address] Potassium [Moles/Vol] 4.1 mmol/L Normal 3.5-5.1 [facility] Comment on above: Performed By: #### L [id number] ####[facility] ([facility])[address] [place] [place], [place] [address] Sodium [Moles/Vol] 133 mmol/L Low 136-145 [facility] Comment on above: Performed By: #### L [id number] ####[facility] ([facility])[address] [place] [address] Urea nitrogen [Mass/Vol] 20 mg/dL Normal 7-25 [facility] Comment on above: Performed By: #### L [id number] ####[facility] ([facility])[address] [place] [address] UREA NITROGEN/CREATININE (MASS RATIO) IN SER/PLAS 30.8 Normal [facility] Comment on above: Performed By: #### L [id number] ####[facility] ([facility])[address] [place] [address] CBCon 12-19-2023 Erythrocyte distribution width (RBC) [Ratio] 13.2 % Normal 11.5-15.0 [facility] Comment on above: Performed By: #### L [id number] ####[facility] ([facility])[address] [place] [address] ERYTHROCYTE MEAN CORPUSCULAR HEMOGLOBIN CONCENTRATION (G/DL) BY AUTOMATED 32.4 g/dL Normal 32.0-35.0 [facility] Comment on above: Performed By: #### L [id number] ####[facility] ([facility])[address] [place], [place] [address] Hematocrit (Bld) [Volume fraction] 21.6 % Low 36.0-48.0 [facility] Comment on above: Performed By: #### L [id number] ####[facility] ([facility])[address] [place], [place] [address] Hemoglobin (Bld) [Mass/Vol] 7.0 g/dL Low 12.0-15.0 [facility] Comment on above: Performed By: #### L [id number] ####[facility] ([facility])[address] [place], [place] [address] MCH (RBC) [Entitic mass] 31.5 pg Normal 27.0-33.0 [facility] Comment on above: Performed By: #### L [id number] ####[facility] ([facility])[address] [place] [address] MCV (RBC) [Entitic vol] 97.3 fL Normal 82.0-98.0 [facility] Comment on above: Performed By: #### L [id number] ####[facility] ([facility])[address] [place] [place] [address] PLATELETS (10*3/UL) IN BLOOD AUTOMATED COUNT 183 10*3/uL Normal 150-400 [facility] Comment on above: Performed By: #### L [id number] ####[facility] ([facility])[address] [place] [place] [address] RBC (Bld) [#/Vol] 2.22 10*6/uL Low 3.80-5.00 [facility] Comment on above: Performed By: #### L [id number] ####[facility] ([facility])[address] [place] [place] [address] WBC (Bld) [#/Vol] 6.45 10*3/uL Normal 4.00-10.60 [facility] Comment on above: Performed By: #### L [id number] ####[facility] ([facility])[address] [place] [place] [address] MAGNESIUMon 12-19-2023 Magnesium [Mass/Vol] 2.1 mg/dL Normal 1.9-2.7 [facility] Comment on above: Performed By: #### L [id number] ####[facility] ([facility])[address] [place] [place] [address] POCT GLUCOSE METER UNSOLICIT ED RESULTSon 12-19-2023 Glucose [Mass/Vol] 181 mg/dL High 70-105 [facility] Comment on above: Order Comment: Waive d Testing in the ED is performed under the ED CLIA certificate #[id number]. Result Comment: [email or web address] Performed By: #### L [id number] ####[facility] ([facility])[address] [place] [place] [address] Glucose [Mass/Vol] 148 mg/dL High 70-105 [facility] Comment on above: Order Comment: Waive d Testing in the ED is performed under the ED CLIA certificate #[id number]. Result Comment: bflo od Performed By: #### L [id number] ####[facility] ([facility])[address] [place] [place] [address] Glucose [Mass/Vol] 204 mg/dL High 70-105 [facility] Comment on above: Order Comment: Waive d Testing in the ED is performed under the ED CLIA certificate #[id number]. Result Comment: bflo od Performed By: #### L [id number] ####[facility] ([facility])[address] [place] [place] [address] Glucose [Mass/Vol] 150 mg/dL High 70-105 [facility] Comment on above: Order Comment: Waive d Testing in the ED is performed under the ED CLIA certificate #[id number]. Result Comment: bflo od Performed By: #### L [id number] ####[facility] ([facility])[address] [place] [place] [address] 30on 12-18-2023 30 Normal [facility] 30 Normal [facility] ALBUMINon 12-18-2023 Albumin [Mass/Vol] 3.2 g/dL Low 3.5-5.7 [facility] Comment on above: Performed By: #### L [id number] ####[facility] ([facility])[address] [place] [place] [address] BASIC METABOLIC PANELon 11-23 Anion gap [Moles/Vol] 7 mmol/L Normal 7-20 [facility] Comment on above: Performed By: #### L [id number] ####[facility] ([facility])[address] [place] [address] Calcium [Mass/Vol] 8.4 mg/dL Low 8.6-10.3 [facility] Comment on above: Performed By: #### L [id number] ####[facility] ([facility])[address] [place] [address] Chloride [Moles/Vol] 103 mmol/L Normal 98-107 [facility] Comment on above: Performed By: #### L [id number] ####[facility] ([facility])[address] [place] [address] CO2 [Moles/Vol] 27 mmol/L Normal 21-31 [facility] Comment on above: Performed By: #### L [id number] ####[facility] ([facility])[address] [place], [place] [address] Creatinine [Mass/Vol] 0.72 mg/dL Normal 0.60-1.20 [facility] Comment on above: Performed By: #### L [id number] ####[facility] ([facility])[address] [place], [place] [address] GLOMERULAR FILTRATION RATE ML/MIN/1.73 SQ M.PREDICTED 94.5 mL/min/1.73m*2 Normal >60.0 [facility] Comment on above: Result Comment: The [facility]???s estimated glomerular filtration rate (eGFR) will no [...] By: #### L [id number] ####[facility] ([facility])[address] [place] [address] Glucose [Mass/Vol] 122 mg/dL High 70-100 [facility] Comment on above: Performed By: #### L [id number] ####[facility] ([facility])[address] [place], [place] [address] Potassium [Moles/Vol] 4.2 mmol/L Normal 3.5-5.1 [facility] Comment on above: Performed By: #### L [id number] ####[facility] (BEAKER)[address] [place] [place] [address] Sodium [Moles/Vol] 133 mmol/L Low 136-145 [facility] Comment on above: Performed By: #### L [id number] ####[facility] (BEAKER)[address] [place] [address] Urea nitrogen [Mass/Vol] 20 mg/dL Normal 7-25 [facility] Comment on above: Performed By: #### L [id number] ####[facility] ([facility] [place] [address] UREA NITROGEN/CREATININE (MASS RATIO) IN SER/PLAS 27.8 Normal [facility] Comment on above: Performed By: #### L [id number] ####[facility] ([facility])[address] [place] [address] CBCon 12-18-2023 Erythrocyte distribution width (RBC) [Ratio] 13.1 % Normal 11.5-15.0 [facility] Comment on above: Performed By: #### L [id number] ####[facility] ([facility])[address] [place] [address] ERYTHROCYTE MEAN CORPUSCULAR HEMOGLOBIN CONCENTRATION (G/DL) BY AUTOMATED 32.8 g/dL Normal 32.0-35.0 [facility] Comment on above: Performed By: #### L [id number] ####[facility] ([facility])[address] [place] [address] Hematocrit (Bld) [Volume fraction] 22.9 % Low 36.0-48.0 [facility] Comment on above: Performed By: #### L [id number] ####[facility] (BEAKER)[address] [place] [address] Hemoglobin (Bld) [Mass/Vol] 7.5 g/dL Low 12.0-15.0 [facility] Comment on above: Performed By: #### L [id number] ####[facility] (BEAKER)[address] [place] [place] [address] MCH (RBC) [Entitic mass] 31.5 pg Normal 27.0-33.0 [facility] Comment on above: Performed By: #### L [id number] ####[facility] ([facility])[address] [place] [address] MCV (RBC) [Entitic vol] 96.2 fL Normal 82.0-98.0 [facility] Comment on above: Performed By: #### L [id number] ####[facility] ([facility])[address] [place] [address] PLATELETS (10*3/UL) IN BLOOD AUTOMATED COUNT 161 10*3/uL Normal 150-400 [facility] Comment on above: Performed By: #### L [id number] ####[facility] ([facility])[address] [place] [address] RBC (Bld) [#/Vol] 2.38 10*6/uL Low 3.80-5.00 [facility] Comment on above: Performed By: #### L [id number] ####[facility] ([facility])[address] [place] [address] WBC (Bld) [#/Vol] 8.15 10*3/uL Normal 4.00-10.60 [facility] Comment on above: Performed By: #### L [id number] ####[facility] ([facility])[address] [place] [address] CT CHEST WO IV CONTRASTon CT CHEST WO IV CONTRAST Invalid Interpretation Code [facility] IRON AND TIBCon 12-18-2023 IRON (UG/DL) IN SER/PLAS 21 ug/dL Low 50-212 [facility] Comment on above: Performed By: #### L [id number] ####[facility] ([facility])[address] [place] [address] IRON BINDING CAPACITY (UG/DL) IN SER/PLAS 187 ug/dL Low 250-450 [facility] Comment on above: Performed By: #### L [id number] ####[facility] ([facility])[address] [place] [address] IRON BINDING CAPACITY.UNSATURATED (UG/DL) IN SER/PLAS 166.0 ug/dL Normal 155.0-355.0 [facility] Comment on above: Performed By: #### L [id number] ####[facility] ([facility])[address] [place] [address] IRON SATURATION (%) IN SER/PLAS 11 % Low 20-50 [facility] Comment on above: Performed By: #### L [id number] ####[facility] ([facility])[address] [place] [address] MAGNESIUMon 12-18-2023 Magnesium [Mass/Vol] 2.0 mg/dL Normal 1.9-2.7 [facility] Comment on above: Performed By: #### L [id number] ####[facility] ([facility])[address] [place], [place] [address] NURSNOTEon 12-18-2023 NURSNOTE Normal [facility] NURSNOTE Normal [facility] NURSNOTE Normal [facility] POCT GLUCOSE METER UNSOLICIT ED RESULTSon 12-18-2023 Glucose [Mass/Vol] 138 mg/dL High 70-105 [facility] Comment on above: Order Comment: Waive d Testing in the ED is performed under the ED CLIA certificate #[id number]. Result Comment: larry [email or web address] Performed By: #### L [id number] ####[facility] ([facility])[address] [place] [address] Glucose [Mass/Vol] 163 mg/dL High 70-105 [facility] Comment on above: Order Comment: Waive d Testing in the ED is performed under the ED CLIA certificate #[id number]. Result Comment: [email or web address] Performed By: #### L [id number] ####[facility] ([facility])[address] [place] [address] Glucose [Mass/Vol] 118 mg/dL High 70-105 [facility] Comment on above: Order Comment: Waive d Testing in the ED is performed under the ED CLIA certificate #[id number]. Result Comment: [email or web address] Performed By: #### L [id number] ####[facility] ([place])[address] [place] [address] Glucose [Mass/Vol] 160 mg/dL High 70-105 [facility] Comment on above: Order Comment: Waive d Testing in the ED is performed under the ED CLIA certificate #[id number]. Result Comment: [email or web address] Performed By: #### L [id number] ####[facility] ([facility])[address] [place] [address] PROCALCITONIN TESTon 024 PROCALCITONIN IN BLOOD 0.22 ng/mL High 0.00-0.10 [facility] Comment on above: Result Comment: Susp ected [...] and initial PCT<0.5ng/mL Performed By: #### L [id number] ####[facility] (BEAKER)[address] [place] [place] [address] TSHon 12-18-2023 THYROTROPIN (MIU/L) IN SER/PLAS BY DETECTION LIMIT <= 0.05 MIU/L 5.49 mIU/L Normal 0.34-5.60 [facility] Comment on above: Performed By: #### L [id number] ####[facility] ([facility])[address] [address] 30on 12-17-2023 30 Normal [facility] BASIC METABOLIC PANELon 11-23 Anion gap [Moles/Vol] 8 mmol/L Normal 7-20 [facility] Comment on above: Performed By: #### L [id number] ####[facility] ([facility])[address] [place] [place] [address] Calcium [Mass/Vol] 8.5 mg/dL Low 8.6-10.3 [facility] Comment on above: Performed By: #### L [id number] ####[facility] (BEAKER)[address] [place] [place] [address] Chloride [Moles/Vol] 104 mmol/L Normal 98-107 [facility] Comment on above: Performed By: #### L [id number] ####[facility] (BEAKER)[address] [place] [place] [address] CO2 [Moles/Vol] 28 mmol/L Normal 21-31 [facility] Comment on above: Performed By: #### L [id number] ####[facility] (BEAKER)[address] [place] [place] [address] Creatinine [Mass/Vol] 0.68 mg/dL Normal 0.60-1.20 [facility] Comment on above: Performed By: #### L [id number] ####[facility] (BEAKER)[address] [place], [place] [address] GLOMERULAR FILTRATION RATE ML/MIN/1.73 SQ M.PREDICTED 98.4 mL/min/1.73m*2 Normal >60.0 [facility] Comment on above: Result Comment: The [facility]???s estimated glomerular filtration rate (eGFR) will no [...] By: #### L [id number] ####[facility] (BEAKER)[address] [place] [address] Glucose [Mass/Vol] 110 mg/dL High 70-100 [facility] Comment on above: Performed By: #### L [id number] ####[facility] (BEAKER)[address] [place] [address] Potassium [Moles/Vol] 3.4 mmol/L Low 3.5-5.1 [facility] Comment on above: Performed By: #### L [id number] ####[facility] (BEAKER)[address] [place] [address] Sodium [Moles/Vol] 137 mmol/L Normal 136-145 [facility] Comment on above: Performed By: #### L [id number] ####[facility] (BEAKER)[address] [place] [address] Urea nitrogen [Mass/Vol] 15 mg/dL Normal 7-25 [facility] Comment on above: Performed By: #### L [id number] ####[facility] (BEAKER)[address] [place] [address] UREA NITROGEN/CREATININE (MASS RATIO) IN SER/PLAS 22.1 Normal [facility] Comment on above: Performed By: #### L [id number] ####[facility] (BEAKER)[address] [place] [address] CBCon 12-17-2023 Erythrocyte distribution width (RBC) [Ratio] 13.0 % Normal 11.5-15.0 [facility] Comment on above: Performed By: #### L [id number] ####[facility] ([facility])[address] [place] [place], [place] [address] ERYTHROCYTE MEAN CORPUSCULAR HEMOGLOBIN CONCENTRATION (G/DL) BY AUTOMATED 33.5 g/dL Normal 32.0-35.0 [facility] Comment on above: Performed By: #### L [id number] ####[facility] ([facility])[address] [place] [place], [place] [address] Hematocrit (Bld) [Volume fraction] 23.0 % Low 36.0-48.0 [facility] Comment on above: Performed By: #### L [id number] ####[facility] ([facility])[address] [place] [place] [address] Hemoglobin (Bld) [Mass/Vol] 7.7 g/dL Low 12.0-15.0 [facility] Comment on above: Performed By: #### L [id number] ####[facility] ([facility])[address] [place] [place], [place] [address] MCH (RBC) [Entitic mass] 31.3 pg Normal 27.0-33.0 [facility] Comment on above: Performed By: #### L [id number] ####[facility] (BEAKER)[address] [place] [place], [place] [address] MCV (RBC) [Entitic vol] 93.5 fL Normal 82.0-98.0 [facility] Comment on above: Performed By: #### L [id number] ####[facility] ([facility])[address] [place] [place] [address] PLATELETS (10*3/UL) IN BLOOD AUTOMATED COUNT 135 10*3/uL Low 150-400 [facility] Comment on above: Performed By: #### L [id number] ####[facility] (BEAKER)[address] [place] [place], [place] [address] RBC (Bld) [#/Vol] 2.46 10*6/uL Low 3.80-5.00 [facility] Comment on above: Performed By: #### L [id number] ####[facility] ([facility])[address] [place] [place] [address] WBC (Bld) [#/Vol] 9.45 10*3/uL Normal 4.00-10.60 [facility] Comment on above: Performed By: #### L [id number] ####[facility] ([facility])[address] [place] [place] [address] IRON AND TIBCon 12-17-2023 IRON (UG/DL) IN SER/PLAS 28 ug/dL Low 50-212 [facility] Comment on above: Performed By: #### L [id number] ####[facility] ([facility])[address] [place] [place] [address] IRON BINDING CAPACITY (UG/DL) IN SER/PLAS 190 ug/dL Low 250-450 [facility] Comment on above: Performed By: #### L [id number] ####[facility] ([facility])[address] [place] [place] [address] IRON BINDING CAPACITY.UNSATURATED (UG/DL) IN SER/PLAS 162.0 ug/dL Normal 155.0-355.0 [facility] Comment on above: Performed By: #### L [id number] ####[facility] ([facility])[address] [place] [place], [place] [address] IRON SATURATION (%) IN SER/PLAS 15 % Low 20-50 [facility] Comment on above: Performed By: #### L [id number] ####[facility] ([facility])[address] [place] [place] [address] MAGNESIUMon 12-17-2023 Magnesium [Mass/Vol] 2.0 mg/dL Normal 1.9-2.7 [facility] Comment on above: Performed By: #### L [id number] ####[facility] ([facility])[address] [place] [address] Orders Onlyon 12-17-2023 Orders Only Normal [facility] POCT GLUCOSE METER UNSOLICIT ED RESULTSon 09-25-2024 Glucose [Mass/Vol] 178 mg/dL High 70-105 [facility] Comment on above: Order Comment: Waive d Testing in the ED is performed under the ED CLIA certificate #[id number]. Result Comment: [email or web address] Performed By: #### L [id number] ####[facility] (BEAKER)[address] [place] [address] Glucose [Mass/Vol] 181 mg/dL High 70-105 [facility] Comment on above: Order Comment: Waive d Testing in the ED is performed under the ED CLIA certificate #[id number]. Result Comment: [email or web address] Performed By: #### L [id number] ####[facility] ([facility])[address] [place] [address] Glucose [Mass/Vol] 221 mg/dL High 70-105 [facility] Comment on above: Order Comment: Waive d Testing in the ED is performed under the ED CLIA certificate #[id number]. Result Comment: clum an Performed By: #### L [id number] ####[facility] (BEAKER)[address] [place] [address] Glucose [Mass/Vol] 166 mg/dL High 70-105 [facility] Comment on above: Order Comment: Waive d Testing in the ED is performed under the ED CLIA certificate #[id number]. Result Comment: clum an Performed By: #### L [id number] ####[facility] (BEAKER)[address] [place] [address] Glucose [Mass/Vol] 152 mg/dL High 70-105 [facility] Comment on above: Order Comment: Waive d Testing in the ED is performed under the ED CLIA certificate #[id number]. Result Comment: clum an Performed By: #### L [id number] ####[facility] (BEAKER)[address] [place] [address] Glucose [Mass/Vol] 154 mg/dL High 70-105 [facility] Comment on above: Order Comment: Waive d Testing in the ED is performed under the ED CLIA certificate #[id number]. Result Comment: cdav ies Performed By: #### L [id number] ####[facility] (BEAKER)[address] [place] [address] Glucose [Mass/Vol] 153 mg/dL High 70-105 [facility] Comment on above: Order Comment: Waive d Testing in the ED is performed under the ED CLIA certificate #[id number]. Result Comment: [email or web address] Performed By: #### L [id number] ####[facility] ([facility])[address] [place] [address] Glucose [Mass/Vol] 160 mg/dL High 70-105 [facility] Comment on above: Order Comment: Waive d Testing in the ED is performed under the ED CLIA certificate #[id number]. Result Comment: cdav ies Performed By: #### L [id number] ####[facility] ([facility])[address] [place] [address] Glucose [Mass/Vol] 147 mg/dL High 70-105 [facility] Comment on above: Order Comment: Waive d Testing in the ED is performed under the ED CLIA certificate #[id number]. Result Comment: cdav ies Performed By: #### L [id number] ####[facility] (BEAKER)[address] [place] [address] Glucose [Mass/Vol] 129 mg/dL High 70-105 [facility] Comment on above: Order Comment: Waive d Testing in the ED is performed under the ED CLIA certificate #[id number]. Result Comment: cdav ies Performed By: #### L [id number] ####[facility] (BEAKER)[address] [place] [address] Glucose [Mass/Vol] 136 mg/dL High 70-105 [facility] Comment on above: Order Comment: Waive d Testing in the ED is performed under the ED CLIA certificate #[id number]. Result Comment: cdav ies Performed By: #### L [id number] ####[facility] ([facility])[address] [place] [address] Glucose [Mass/Vol] 147 mg/dL High 70-105 [facility] Comment on above: Order Comment: Waive d Testing in the ED is performed under the ED CLIA certificate #[id number]. Result Comment: cdav ies Performed By: #### L [id number] ####[facility] ([facility])[address] [place] [address] Glucose [Mass/Vol] 161 mg/dL High 70-105 [facility] Comment on above: Order Comment: Waive d Testing in the ED is performed under the ED CLIA certificate #[id number]. Result Comment: cdav ies Performed By: #### L [id number] ####[facility] ([facility])[address] [place] [address] 30on 12-16-2023 30 Normal [facility] 30 Normal [facility] ANESon 12-16-2023 ANES [facility] ANTI-XA (HEPARIN LEVEL)on HEPARIN UNFRACTIONATED (U/ML) IN PPP BY CHROMOGENIC METHOD <0.10 Invalid Interpretation Code 0.3-0.7 [facility] Comment on above: Result Comment: Nevis roxaban and Apixaban will interfere with the anti Xa assay used to monitor UFH and LMWH. Performed By: #### L [id number] ####[facility] ([facility])[address] [place] [address] APTTon 12-16-2023 ACTIVATED PARTIAL THROMBOPLASTIN TIME IN PPP BY COAGULATION ASSAY 27.7 Seconds Normal 25.0-35.0 [facility] Comment on above: Result Comment: Clin ical significance of the APTT is questionable in the presence of heparin. Performed By: #### L [id number] ####[facility] ([facility])[address] [place] [address] BASIC METABOLIC PANELon 11-23 Anion gap [Moles/Vol] 10 mmol/L Normal 7-20 [facility] Comment on above: Performed By: #### L [id number] ####[facility] (BEAKER)[address] [place] [address] Calcium [Mass/Vol] 8.5 mg/dL Low 8.6-10.3 [facility] Comment on above: Performed By: #### L [id number] ####[facility] ([facility])[address] [place] [address] Chloride [Moles/Vol] 108 mmol/L High 98-107 [facility] Comment on above: Performed By: #### L [id number] ####[facility] ([facility])[address] [place] [address] CO2 [Moles/Vol] 27 mmol/L Normal 21-31 [facility] Comment on above: Performed By: #### L [id number] ####[facility] ([facility])[address] [place] [address] Creatinine [Mass/Vol] 0.80 mg/dL Normal 0.60-1.20 [facility] Comment on above: Performed By: #### L [id number] ####[facility] ([facility])[address] [place] [address] GLOMERULAR FILTRATION RATE ML/MIN/1.73 SQ M.PREDICTED 83.3 mL/min/1.73m*2 Normal >60.0 [facility] Comment on above: Result Comment: The [facility]???s estimated glomerular filtration rate (eGFR) will no [...] By: #### L [id number] ####[facility] ([facility])[address] [place] [address] Glucose [Mass/Vol] 159 mg/dL High 70-100 [facility] Comment on above: Performed By: #### L [id number] ####[facility] ([facility])[address] [place] [place] [address] Potassium [Moles/Vol] 4.3 mmol/L Normal 3.5-5.1 [facility] Comment on above: Performed By: #### L [id number] ####[facility] ([facility])[address] [place] [place] [address] Sodium [Moles/Vol] 141 mmol/L Normal 136-145 [facility] Comment on above: Performed By: #### L [id number] ####[facility] ([facility])[address] [place] [place] [address] Urea nitrogen [Mass/Vol] 15 mg/dL Normal 7-25 [facility] Comment on above: Performed By: #### L [id number] ####[facility] ([facility])[address] [place] [place] [address] UREA NITROGEN/CREATININE (MASS RATIO) IN SER/PLAS 18.8 Normal [facility] Comment on above: Performed By: #### L [id number] ####[facility] ([facility])[address] [place] [place] [address] CBCon 12-16-2023 Erythrocyte distribution width (RBC) [Ratio] 13.0 % Normal 11.5-15.0 [facility] Comment on above: Performed By: #### L [id number] ####[facility] ([facility])[address] [place] [place] [address] ERYTHROCYTE MEAN CORPUSCULAR HEMOGLOBIN CONCENTRATION (G/DL) BY AUTOMATED 33.7 g/dL Normal 32.0-35.0 [facility] Comment on above: Performed By: #### L [id number] ####[facility] ([facility] [place] [place] [address] Hematocrit (Bld) [Volume fraction] 24.3 % Low 36.0-48.0 [facility] Comment on above: Performed By: #### L [id number] ####[facility] ([facility])[address] [place] [place] [address] Hemoglobin (Bld) [Mass/Vol] 8.2 g/dL Low 12.0-15.0 [facility] Comment on above: Performed By: #### L [id number] ####[facility] ([facility])[address] [place] [place] [address] MCH (RBC) [Entitic mass] 31.1 pg Normal 27.0-33.0 [facility] Comment on above: Performed By: #### L [id number] ####[facility] ([facility])[place] [address] MCV (RBC) [Entitic vol] 92.0 fL Normal 82.0-98.0 [facility] Comment on above: Performed By: #### L [id number] ####[facility] ([facility])[place] [address] PLATELETS (10*3/UL) IN BLOOD AUTOMATED COUNT 130 10*3/uL Low 150-400 [facility] Comment on above: Performed By: #### L [id number] ####[facility] ([facility])[address] [place] [place] [address] RBC (Bld) [#/Vol] 2.64 10*6/uL Low 3.80-5.00 [facility] Comment on above: Performed By: #### L [id number] ####[facility] ([facility])[address] [place] [place] [address] WBC (Bld) [#/Vol] 6.53 10*3/uL Normal 4.00-10.60 [facility] Comment on above: Performed By: #### L [id number] ####[facility] ([facility])[address] [place] [address] CONSULTon 12-16-2023 CONSULT Normal [facility] MAGNESIUMon 12-16-2023 Magnesium [Mass/Vol] 2.2 mg/dL Normal 1.9-2.7 [facility] Comment on above: Performed By: #### L [id number] ####[facility] ([facility])[address] [place] [address] PHOSPHORUSon 12-16-2023 Magnesium [Mass/Vol] 3.6 mg/dL Normal 2.5-5.0 [facility] Comment on above: Performed By: #### L [id number] ####[facility] ([facility])[address] [place] [address] POCT GLUCOSE METER UNSOLICIT ED RESULTSon 12-16-2023 Glucose [Mass/Vol] 163 mg/dL High 70-105 [facility] Comment on above: Order Comment: Waive d Testing in the ED is performed under the ED CLIA certificate #[id number]. Result Comment: cdav ies Performed By: #### L [id number] ####[facility] ([facility])[address] [place] [address] Glucose [Mass/Vol] 138 mg/dL High 70-105 [facility] Comment on above: Order Comment: Waive d Testing in the ED is performed under the ED CLIA certificate #[id number]. Result Comment: cdav ies Performed By: #### L [id number] ####[facility] ([employer])[address] [place] [address] Glucose [Mass/Vol] 105 mg/dL Normal 70-105 [facility] Comment on above: Order Comment: Waive d Testing in the ED is performed under the ED CLIA certificate #[id number]. Result Comment: cdav ies Performed By: #### L [id number] ####[facility] ([place])[address] [place] [address] Glucose [Mass/Vol] 77 mg/dL Normal 70-105 [facility] Comment on above: Order Comment: Waive d Testing in the ED is performed under the ED CLIA certificate #[id number]. Result Comment: cdav ies Performed By: #### L [id number] ####[facility] (BEAKER)[address] [place] [address] Glucose [Mass/Vol] 128 mg/dL High 70-105 [facility] Comment on above: Order Comment: Waive d Testing in the ED is performed under the ED CLIA certificate #[id number]. Result Comment: tlin [email or web address] Performed By: #### L [id number] ####[facility] ([facility])[address] [place] [address] Glucose [Mass/Vol] 155 mg/dL High 70-105 [facility] Comment on above: Order Comment: Waive d Testing in the ED is performed under the ED CLIA certificate #[id number]. Result Comment: tlin [email or web address] Performed By: #### L [id number] ####[facility] ([facility])[address] [place] [address] Glucose [Mass/Vol] 160 mg/dL High 70-105 [facility] Comment on above: Order Comment: Waive d Testing in the ED is performed under the ED CLIA certificate #[id number]. Result Comment: tlin [email or web address] Performed By: #### L [id number] ####[facility] ([facility])[address] [place] [address] Glucose [Mass/Vol] 126 mg/dL High 70-105 [facility] Comment on above: Order Comment: Waive d Testing in the ED is performed under the ED CLIA certificate #[id number]. Result Comment: [email or web address] Performed By: #### L [id number] ####[facility] ([facility])[address] [place] [address] Glucose [Mass/Vol] 125 mg/dL High 70-105 [facility] Comment on above: Order Comment: Waive d Testing in the ED is performed under the ED CLIA certificate #[id number]. Result Comment: [email or web address] Performed By: #### L [id number] ####[facility] (BE[employer]ment)[address] [place] [address] Glucose [Mass/Vol] 173 mg/dL High 70-105 [facility] Comment on above: Order Comment: Waive d Testing in the ED is performed under the ED CLIA certificate #[id number]. Result Comment: tlin [email or web address] Performed By: #### L [id number] ####[facility] (BEAKER)[address] [place] [address] Glucose [Mass/Vol] 160 mg/dL High 70-105 [facility] Comment on above: Order Comment: Waive d Testing in the ED is performed under the ED CLIA certificate #[id number]. Result Comment: tlin [email or web address] Performed By: #### L [id number] ####[facility] (BEAKER)[address] [place] [address] Glucose [Mass/Vol] 189 mg/dL High 70-105 [facility] Comment on above: Order Comment: Waive d Testing in the ED is performed under the ED CLIA certificate #[id number]. Result Comment: tlin [email or web address] Performed By: #### L [id number] ####[facility] (BEAKER)[address] [place] [address] Glucose [Mass/Vol] 172 mg/dL High 70-105 [facility] Comment on above: Order Comment: Waive d Testing in the ED is performed under the ED CLIA certificate #[id number]. Result Comment: tlin [email or web address] Performed By: #### L [id number] ####[facility] (BEAKER)[address] [place] [address] Glucose [Mass/Vol] 188 mg/dL High 70-105 [facility] Comment on above: Order Comment: Waive d Testing in the ED is performed under the ED CLIA certificate #[id number]. Result Comment: [email or web address] Performed By: #### L [id number] ####[facility] (BEAKER)[address] [place] [address] Glucose [Mass/Vol] 192 mg/dL High 70-105 [facility] Comment on above: Order Comment: Waive d Testing in the ED is performed under the ED CLIA certificate #[id number]. Result Comment: [email or web address] Performed By: #### L [id number] ####[facility] (BEAKER)[address] [place] [address] Glucose [Mass/Vol] 233 mg/dL High 70-105 [facility] Comment on above: Order Comment: Waive d Testing in the ED is performed under the ED CLIA certificate #[id number]. Result Comment: cdav ies Performed By: #### L [id number] ####[facility] ([facility])[address] [place] [address] Glucose [Mass/Vol] 198 mg/dL High 70-105 [facility] Comment on above: Order Comment: Waive d Testing in the ED is performed under the ED CLIA certificate #[id number]. Result Comment: cdav ies Performed By: #### L [id number] ####[facility] ([facility])[address] [place] [address] Glucose [Mass/Vol] 193 mg/dL High 70-105 [facility] Comment on above: Order Comment: Waive d Testing in the ED is performed under the ED CLIA certificate #[id number]. Result Comment: cdav ies Performed By: #### L [id number] ####[facility] (BEAKER)[address] [place] [address] Glucose [Mass/Vol] 186 mg/dL High 70-105 [facility] Comment on above: Order Comment: Waive d Testing in the ED is performed under the ED CLIA certificate #[id number]. Result Comment: cdav ies Performed By: #### L [id number] ####[facility] (BEAKER)[address] [place] [address] Glucose [Mass/Vol] 208 mg/dL High [address] [facility] Comment on above: Order Comment: Waive d Testing in the ED is performed under the ED CLIA certificate #[id number]. Result Comment: cdav ies Performed By: #### L [id number] ####[facility] ([place])[address] [place] [address] Glucose [Mass/Vol] 188 mg/dL High 70-105 [facility] Comment on above: Order Comment: Waive d Testing in the ED is performed under the ED CLIA certificate #[id number]. Result Comment: cdav ies Performed By: #### L [id number] ####[facility] ([place])[address] [place] [address] Glucose [Mass/Vol] 177 mg/dL High 70-105 [facility] Comment on above: Order Comment: Waive d Testing in the ED is performed under the ED CLIA certificate #[id number]. Result Comment: cdav ies Performed By: #### L [id number] ####[facility] ([place])[address] [place] [address] PROTIME-INRon 12-16-2023 INR IN PPP BY COAGULATION ASSAY 1.19 High 0.90-1.10 [facility] Comment on above: Result Comment: ACCC P [...] By: #### L [id number] ####[facility] ([facility])[address] [place] [address] PROTHROMBIN TIME (PT) IN PPP BY COAGULATION ASSAY 15.0 Seconds High 12.3-14.8 [facility] Comment on above: Performed By: #### L [id number] ####[facility] ([facility])[address] [place] [address] 30on 12-15-2023 30 Normal [facility] APTTon 12-15-2023 ACTIVATED PARTIAL THROMBOPLASTIN TIME IN PPP BY COAGULATION ASSAY 25.0 Seconds Normal 25.0-35.0 [facility] Comment on above: Result Comment: Clin ical significance of the APTT is questionable in the presence of heparin. Performed By: #### L [id number] ####[facility] ([facility])[address] [place] [address] ARTERIAL BLOOD GAS WITH IONI ZED CALCIUMon 12-15-2023 Base excess Calc (Bld) [Moles/Vol] -2.2000 mmol/L Low -2.0-3.0 [facility] Comment on above: Performed By: #### L [id number] ####[facility] [id number] [place] [address] [facility] CALCIUM IONIZED (MMOL/L) IN BLOOD 1.22 mmol/L Normal 1.15-1.33 [facility] Comment on above: Performed By: #### L [id number] ####[facility] RESPIR[facility] [id number] [place] [address] [place] CO2 (Bld) [Partial pressure] 37 mm[Hg] Normal 35-48 [facility] Comment on above: Performed By: #### L [id number] ####[facility] RESPIR[facility] [id number] [place] [address] [place] HCO3 (Bld) [Moles/Vol] 22.4 mmol/L Normal 21.0-28.0 [facility] Comment on above: Performed By: #### L [id number] ####[facility] [id number] [place] [address] [place] LPM 3 Normal [facility] Comment on above: Performed By: #### L [id number] ####[facility] RESPIRATORY [id number] [place] [address] [place] Oxygen (Bld) [Partial pressure] 106 mm[Hg] High 83-100 [facility] Comment on above: Performed By: #### L [id number] ####[facility] RESPIRATORY [id number] [place] [address] [place] OXYGEN SATURATION (%) IN ARTERIAL BLOOD 99.0 % High 94.0-98.0 [facility] Comment on above: Performed By: #### L [id number] ####[facility] RES[facility] [id number] [place] [address] [place] pH (Bld) 7.39 [pH] Normal 7.35-7.45 [facility] Comment on above: Performed By: #### L [id number] ####[facility] [id number] [place] [address] [facility] SOURCE OF OXYGEN Nasal cannula Normal [facility] Comment on above: Performed By: #### L [id number] ####[facility] RESPIR[facility]ORY [id number] [place] [address] [facility] Anesthesiaon 12-15-2023 Anesthesia Normal [facility] BASIC METABOLIC PANELon 11-23 Anion gap [Moles/Vol] 10 mmol/L Normal 7-20 [facility] Comment on above: Performed By: #### L [id number] ####[facility] (BEAKER)[address] [place] [address] Calcium [Mass/Vol] 9.0 mg/dL Normal 8.6-10.3 [facility] Comment on above: Performed By: #### L [id number] ####[facility] (BEAKER)[address] [facility] [place] [address] Chloride [Moles/Vol] 101 mmol/L Normal 98-107 [facility] Comment on above: Performed By: #### L [id number] ####[facility] (BEAKER)[address] [facility] [place] [address] CO2 [Moles/Vol] 27 mmol/L Normal 21-31 [facility] Comment on above: Performed By: #### L [id number] ####[facility] ([facility])[address] [place] [place] [address] Creatinine [Mass/Vol] 0.85 mg/dL Normal 0.60-1.20 [facility] Comment on above: Performed By: #### L [id number] ####[facility] ([facility])[address] [place] [place] [address] GLOMERULAR FILTRATION RATE ML/MIN/1.73 SQ M.PREDICTED 77.4 mL/min/1.73m*2 Normal >60.0 [facility] Comment on above: Result Comment: The [facility]???s estimated glomerular filtration rate (eGFR) will no [...] By: #### L [id number] ####[facility] ([facility])[address] [place] [place] [address] Glucose [Mass/Vol] 118 mg/dL High 70-100 [facility] Comment on above: Performed By: #### L [id number] ####[facility] ([facility])[address] [place] [place] [address] Potassium [Moles/Vol] 4.3 mmol/L Normal 3.5-5.1 [facility] Comment on above: Performed By: #### L [id number] ####[facility] ([facility])[address] [place] [place] [address] Sodium [Moles/Vol] 134 mmol/L Low 136-145 [facility] Comment on above: Performed By: #### L [id number] ####[facility] (BEAKER)[address] [place] [address] Urea nitrogen [Mass/Vol] 17 mg/dL Normal 7-25 [facility] Comment on above: Performed By: #### L [id number] ####[facility] [address] UREA NITROGEN/CREATININE (MASS RATIO) IN SER/PLAS 20.0 Normal [facility] Comment on above: Performed By: #### L [id number] ####[facility] ([facility] [place] [address] CBCon 12-15-2023 Erythrocyte distribution width (RBC) [Ratio] 12.5 % Normal 11.5-15.0 [facility] Comment on above: Performed By: #### L [id number] ####[facility] ([facility])[address] [place] [address] ERYTHROCYTE MEAN CORPUSCULAR HEMOGLOBIN CONCENTRATION (G/DL) BY AUTOMATED 34.4 g/dL Normal 32.0-35.0 [facility] Comment on above: Performed By: #### L [id number] ####[facility] ([facility])[address] [place] [address] Hematocrit (Bld) [Volume fraction] 41.8 % Normal 36.0-48.0 [facility] Comment on above: Performed By: #### L [id number] ####[facility] ([facility] [address] Hemoglobin (Bld) [Mass/Vol] 14.4 g/dL Normal 12.0-15.0 [facility] Comment on above: Performed By: #### L [id number] ####[facility] (BEAKER)[address] [place] [address] MCH (RBC) [Entitic mass] 31.2 pg Normal 27.0-33.0 [facility] Comment on above: Performed By: #### L [id number] ####[facility] (BEAKER)[address] [address] MCV (RBC) [Entitic vol] 90.5 fL Normal 82.0-98.0 [facility] Comment on above: Performed By: #### L [id number] ####[facility] ([facility])[address] [place] [place] [address] PLATELETS (10*3/UL) IN BLOOD AUTOMATED COUNT 207 10*3/uL Normal 150-400 [facility] Comment on above: Performed By: #### L [id number] ####[facility] ([facility])[address] [place] [address] RBC (Bld) [#/Vol] 4.62 10*6/uL Normal 3.80-5.00 [facility] Comment on above: Performed By: #### L [id number] ####[facility] ([facility])[address] [place] [address] WBC (Bld) [#/Vol] 6.04 10*3/uL Normal 4.00-10.60 [facility] Comment on above: Performed By: #### L [id number] ####[facility] ([facility])[address] [place] [address] CBC WITH AUTO DIFFERENTIALon 12-15-2023 Basophils (Bld) [#/Vol] 0.05 10*3/uL Normal 0.00-0.20 [facility] Comment on above: Performed By: #### L [id number] ####[facility] ([facility])[address] [place] [address] Basophils/100 WBC (Bld) 0.3 % Normal 0.0-1.0 [facility] Comment on above: Performed By: #### L [id number] ####[facility] ([facility] [place] [address] Eosinophils (Bld) [#/Vol] 0.01 10*3/uL Normal 0.00-0.50 [facility] Comment on above: Performed By: #### L [id number] ####[facility] (BEAKER)[address] [place] [address] Eosinophils/100 WBC (Bld) 0.1 % Normal 0.0-6.0 [facility] Comment on above: Performed By: #### L [id number] ####[facility] (BEAKER)[address] [place] [place] [address] Erythrocyte distribution width (RBC) [Ratio] 12.8 % Normal 11.5-15.0 [facility] Comment on above: Performed By: #### L [id number] ####[facility] ([facility])[address] [place] [place] [address] ERYTHROCYTE MEAN CORPUSCULAR HEMOGLOBIN CONCENTRATION (G/DL) BY AUTOMATED 33.2 g/dL Normal 32.0-35.0 [facility] Comment on above: Performed By: #### L [id number] ####[facility] ([facility])[address] [place] [place] [address] Hematocrit (Bld) [Volume fraction] 31.0 % Low 36.0-48.0 [facility] Comment on above: Performed By: #### L [id number] ####[facility] (BEAKER)[address] [place] [place] [address] Hemoglobin (Bld) [Mass/Vol] 10.3 g/dL Low 12.0-15.0 [facility] Comment on above: Performed By: #### L [id number] ####[facility] (BEAKER)[address] [place] [place] [address] Immature granulocytes (Bld) [#/Vol] 0.12 10*3/uL Normal 0.00-0.20 [facility] Comment on above: Performed By: #### L [id number] ####[facility] (BEAKER)[address] [place] [place] [address] Immature granulocytes/100 WBC (Bld) 0.8 % Normal 0.0-1.0 [facility] Comment on above: Performed By: #### L [id number] ####[facility] (BEAKER)[address] [place] [place] [address] Lymphocytes (Bld) [#/Vol] 1.58 10*3/uL Normal 1.20-4.00 [facility] Comment on above: Performed By: #### L [id number] ####[facility] (BEAKER)[address] [place] [place] [address] Lymphocytes/100 WBC (Bld) 10.4 % Low 20.0-45.0 [facility] Comment on above: Performed By: #### L [id number] ####[facility] ([facility])[address] [place] [place] [address] MCH (RBC) [Entitic mass] 31.2 pg Normal 27.0-33.0 [facility] Comment on above: Performed By: #### L [id number] ####[facility] ([facility])[address] [place] [place] [address] MCV (RBC) [Entitic vol] 93.9 fL Normal 82.0-98.0 [facility] Comment on above: Performed By: #### L [id number] ####[facility] (BEAKER)[address] [place] [address] Monocytes (Bld) [#/Vol] 1.19 10*3/uL High 0.10-1.00 [facility] Comment on above: Performed By: #### L [id number] ####[facility] (BEAKER)[address] [place] [place] [address] Monocytes/100 WBC (Bld) 7.8 % Normal 5.0-12.0 [facility] Comment on above: Performed By: #### L [id number] ####[facility] (BEAKER)[address] [place] [place] [address] Neutrophils (Bld) [#/Vol] 12.28 10*3/uL High 1.60-7.60 [facility] Comment on above: Performed By: #### L [id number] ####[facility] (BEAKER)[address] [place] [place] [address] Neutrophils/100 WBC (Bld) 80.6 % High 40.0-72.0 [facility] Comment on above: Performed By: #### L [id number] ####[facility] (BEAKER)[address] [place] [place] [address] NRBC (PER 100 WBCS) BY AUTOMATED COUNT 0.0 % Normal 0 [facility] Comment on above: Performed By: #### L [id number] ####[facility] ([facility] [place] [address] PLATELETS (10*3/UL) IN BLOOD AUTOMATED COUNT 189 10*3/uL Normal 150-400 [facility] Comment on above: Performed By: #### L [id number] ####[facility] ([facility])[address] [place] [place] [address] RBC (Bld) [#/Vol] 3.30 10*6/uL Low 3.80-5.00 [facility] Comment on above: Performed By: #### L [id number] ####[facility] ([facility])[address] [place] [place] [address] WBC (Bld) [#/Vol] 15.23 10*3/uL High 4.00-10.60 [facility] Comment on above: Performed By: #### L [id number] ####[facility] (BEAKER)[address] [place] [place] [address] CO-OXIMETRYon 12-15-2023 CARBOXYHEMOGLOBIN/HEMO GLOBIN TOTAL % IN BLOOD 1.7 % Normal [facility] Comment on above: Performed By: #### L [id number] ####[facility] RESPIRATORY [id number] [place] [address] [place] Hemoglobin (Bld) [Mass/Vol] 9.1 g/dL Normal [facility] Comment on above: Performed By: #### L [id number] ####[facility] RESPIRATORY [id number] [place] [address] [place] METHEMOGLOBIN/100 IN BLOOD 0.3 % Normal 0.0-1.5 [facility] Comment on above: Performed By: #### L [id number] ####[facility] RESPIRATORY [id number] [place] [address] [place] Oxygen saturation in Blood 64.9 % Normal [facility] Comment on above: Performed By: #### L [id number] ####[facility] RESPIRATORY [id number] [place] [address] [facility] OXYGENATED HEMOGLOBIN IN BLOOD 63.6 % Normal [facility] Comment on above: Performed By: #### L [id number] ####[facility] RESPIRATORY [id number] [place] [address] [facility] COMPREHENSIVE METABOLIC PANE Kirit 12-15-2023 Albumin [Mass/Vol] 3.5 g/dL Normal 3.5-5.7 [facility] Comment on above: Performed By: #### L [id number] ####[facility] (BEAKER)[address] [place] [address] ALP [Catalytic activity/Vol] 47 U/L Normal 34-104 [facility] Comment on above: Performed By: #### L [id number] ####[facility] (BEAKER)[address] [place] [address] ALT [Catalytic activity/Vol] 21 U/L Normal 7-52 [facility] Comment on above: Performed By: #### L [id number] ####[facility] (BEAKER)[address] [place] [address] Anion gap [Moles/Vol] 13 mmol/L Normal 7-20 [facility] Comment on above: Performed By: #### L [id number] ####[facility] (BEAKER)[address] [place] [address] AST [Catalytic activity/Vol] 37 U/L Normal 13-39 [facility] Comment on above: Performed By: #### L [id number] ####[facility] (BEAKER)[address] [place] [address] Bilirubin [Mass/Vol] 0.6 mg/dL Normal 0.3-1.0 [facility] Comment on above: Performed By: #### L [id number] ####[facility] (BEAKER)[address] [place] [place] [address] Calcium [Mass/Vol] 9.1 mg/dL Normal 8.6-10.3 [facility] Comment on above: Performed By: #### L [id number] ####[facility] (BEAKER)[address] [place] [place] [address] Chloride [Moles/Vol] 109 mmol/L High 98-107 [facility] Comment on above: Performed By: #### L [id number] ####[facility] ([facility] [place] [place] [address] CO2 [Moles/Vol] 21 mmol/L Normal 21-31 [facility] Comment on above: Performed By: #### L [id number] ####[facility] ([facility])[address] [place] [place] [address] Creatinine [Mass/Vol] 0.84 mg/dL Normal 0.60-1.20 [facility] Comment on above: Performed By: #### L [id number] ####[facility] ([facility])[address] [place] [place] [address] GLOMERULAR FILTRATION RATE ML/MIN/1.73 SQ M.PREDICTED 78.5 mL/min/1.73m*2 Normal >60.0 [facility] Comment on above: Result Comment: The [facility]???s estimated glomerular filtration rate (eGFR) will no [...] By: #### L [id number] ####[facility] ([facility])[address] [place], [place] [address] Glucose [Mass/Vol] 205 mg/dL High 70-100 [facility] Comment on above: Performed By: #### L [id number] ####[facility] ([facility])[address] [place] [address] Potassium [Moles/Vol] 4.0 mmol/L Normal 3.5-5.1 [facility] Comment on above: Performed By: #### L [id number] ####[facility] ([facility])[address] [place] [address] Protein [Mass/Vol] 5.2 g/dL Low 6.0-8.3 [facility] Comment on above: Performed By: #### L [id number] ####[facility] ([facility])[address] [place], [place] [address] Sodium [Moles/Vol] 139 mmol/L Normal 136-145 [facility] Comment on above: Performed By: #### L [id number] ####[facility] ([facility])[address] [place], [place] [address] Urea nitrogen [Mass/Vol] 15 mg/dL Normal 7-25 [facility] Comment on above: Performed By: #### L [id number] ####[facility] ([facility])[address] [place] [address] UREA NITROGEN/CREATININE (MASS RATIO) IN SER/PLAS 17.9 Normal [facility] Comment on above: Performed By: #### L [id number] ####[facility] ([facility])[address] [place], [place] [address] FIBRINOGENon 12-15-2023 Magnesium [Mass/Vol] 292 mg/dL Normal 150-425 [facility] Comment on above: Performed By: #### L [id number] ####[facility] ([facility])[address] [place] [address] HPon 12-15-2023 HP H&P reviewed. The edward garcia was examined and there are no changes to the H&P. Normal [facility] LACTIC ACID, PLASMAon 2023 LACTATE (MMOL/L) IN SER/PLAS 2.1 mmol/L Normal 0.5-2.2 [facility] Comment on above: Performed By: #### L [id number] ####[facility] (BEAKER)[address] [place] [address] MAGNESIUMon 12-15-2023 Magnesium [Mass/Vol] 2.4 mg/dL Normal 1.9-2.7 [facility] Comment on above: Performed By: #### L [id number] ####[facility] (BEAKER)[address] [place] [address] NURSNOTEon 12-15-2023 NURSNOTE Normal [facility] NURSNOTE Normal [facility] OPNOTEon 12-15-2023 OPNOTE Normal [facility] PHOSPHORUSon 12-15-2023 Magnesium [Mass/Vol] 5.4 mg/dL High 2.5-5.0 [facility] Comment on above: Performed By: #### L [id number] ####[facility] (BEAKER)[address] [place] [address] POCT ACTIVATED CLOTTING TIME UNSOLICITED RESULTSon 12-15-2023 POC ACTIVATED CLOTTING TIME 123 sec Normal 82-152 [facility] Comment on above: Performed By: #### L [id number] ####[facility] (BEAKER)[address] [place] [address] POC ACTIVATED CLOTTING TIME 475 sec High 82-152 [facility] Comment on above: Performed By: #### L [id number] ####[facility] (BEAKER)[address] [place] [address] POC ACTIVATED CLOTTING TIME 521 sec High 82-152 [facility] Comment on above: Performed By: #### L [id number] ####[facility] (BEAKER)[address] [place] [address] POC ACTIVATED CLOTTING TIME 462 sec High 82-152 [facility] Comment on above: Performed By: #### L [id number] ####[facility] (BEAKER)[address] [place] [address] POC ACTIVATED CLOTTING TIME 469 sec High 82-152 [facility] Comment on above: Performed By: #### L [id number] ####[facility] ([facility])[address] [place] [address] POC ACTIVATED CLOTTING TIME 584 sec High 82-152 [facility] Comment on above: Performed By: #### L [id number] ####[facility] ([facility])[address] [place] [address] POC ACTIVATED CLOTTING TIME 116 sec Normal 82-152 [facility] Comment on above: Performed By: #### L [id number] ####[facility] ([facility])[address] [place] [address] POCT GLUCOSE METER UNSOLICIT ED RESULTSon 12-15-2023 Glucose [Mass/Vol] 171 mg/dL High 70-105 [facility] Comment on above: Order Comment: Waive d Testing in the ED is performed under the ED CLIA certificate #[id number]. Result Comment: cdav ies Performed By: #### L [id number] ####[facility] ([facility])[address] [place] [address] Glucose [Mass/Vol] 184 mg/dL High 70-105 [facility] Comment on above: Order Comment: Waive d Testing in the ED is performed under the ED CLIA certificate #[id number]. Result Comment: cdav ies Performed By: #### L [id number] ####[facility] ([facility])[address] [place] [address] Glucose [Mass/Vol] 166 mg/dL High 70-105 [facility] Comment on above: Order Comment: Waive d Testing in the ED is performed under the ED CLIA certificate #[id number]. Result Comment: cdav ies Performed By: #### L [id number] ####[facility] ([facility])[address] [place] [address] Glucose [Mass/Vol] 145 mg/dL High 70-105 [facility] Comment on above: Order Comment: Waive d Testing in the ED is performed under the ED CLIA certificate #[id number]. Result Comment: cdav ies Performed By: #### L [id number] ####[facility] ([facility])[address] [place] [address] Glucose [Mass/Vol] 216 mg/dL High 70-105 [facility] Comment on above: Order Comment: Waive d Testing in the ED is performed under the ED CLIA certificate #[id number]. Result Comment: jgig and Performed By: #### L [id number] ####[facility] ([facility])[address] [place] [address] Glucose [Mass/Vol] 224 mg/dL High 70-105 [facility] Comment on above: Order Comment: Waive d Testing in the ED is performed under the ED CLIA certificate #[id number]. Result Comment: jgig and Performed By: #### L [id number] ####[facility] ([facility])[address] [place] [address] POCT PERFUSION PANEL UNSOLIC ITED RESULTSon 12-15-2023 CO2 [Moles/Vol] 23.0 mmol/L Normal 21.0-29.0 [facility] Comment on above: Performed By: #### L [id number] ####[facility] ([facility])[address] [place] [address] Glucose [Mass/Vol] 205 mg/dL High 70-105 [facility] Comment on above: Performed By: #### L [id number] ####[facility] ([facility])[address] [place] [address] HCO3 (Bld) [Moles/Vol] 22.1 mmol/L Low 23.0-28.0 [facility] Comment on above: Performed By: #### L [id number] ####[facility] ([facility])[address] [place] [address] Hematocrit (Bld) [Volume fraction] 27 % Low 38-51 [facility] Comment on above: Performed By: #### L [id number] ####[facility] ([facility])[address] [place] [address] Hemoglobin (Bld) [Mass/Vol] 9.2 g/dL Low 12.0-17.0 [facility] Comment on above: Performed By: #### L [id number] ####[facility] ([facility])[address] [place] [place] [address] POCT BASE EXCESS -4.0 mmol/L Low -2.0-3.0 [facility] Comment on above: Performed By: #### L [id number] ####[facility] ([facility])[address] [place] [address] POCT IONIZED CALCIUM 1.18 mmol/L Normal 1.12-1.32 [facility] Comment on above: Performed By: #### L [id number] ####[facility] ([facility])[address] [place] [address] POCT PCO2 42.2 mmHg Normal 41.0-51.0 [facility] Comment on above: Performed By: #### L [id number] ####[facility] ([facility])[address] [place] [address] POCT PH 7.33 Normal 7.31-7.41 [facility] Comment on above: Performed By: #### L [id number] ####[facility] ([facility])[address] [place] [address] POCT PO2 306 mmHg High 80-105 [facility] Comment on above: Performed By: #### L [id number] ####[facility] ([facility])[address] [place] [address] POCT SO2 100 % High 95-98 [facility] Comment on above: Performed By: #### L [id number] ####[facility] ([facility])[address] [place] [address] Potassium [Moles/Vol] 4.3 mmol/L Normal 3.5-4.9 [facility] Comment on above: Performed By: #### L [id number] ####[facility] (BEAKER)[address] [place] [address] Sodium [Moles/Vol] 137 mmol/L Low 138.0-146.0 [facility] Comment on above: Performed By: #### L [id number] ####[facility] (BEAKER)[address] [place] [address] CO2 [Moles/Vol] 24.0 mmol/L Normal 21.0-29.0 [facility] Comment on above: Performed By: #### L [id number] ####[facility] (BEAKER)[address] [place] [place] [address] Glucose [Mass/Vol] 196 mg/dL High 70-105 [facility] Comment on above: Performed By: #### L [id number] ####[facility] (BEAKER)[address] [place] [place] [address] HCO3 (Bld) [Moles/Vol] 23.0 mmol/L Normal 23.0-28.0 [facility] Comment on above: Performed By: #### L [id number] ####[facility] (BEAKER)[address] [place] [place] [address] Hematocrit (Bld) [Volume fraction] 25 % Low 38-51 [facility] Comment on above: Performed By: #### L [id number] ####[facility] (BEAKER)[address] [place] [place] [address] Hemoglobin (Bld) [Mass/Vol] 8.5 g/dL Low 12.0-17.0 [facility] Comment on above: Performed By: #### L [id number] ####[facility] (BEAKER)[address] [place] [address] POCT BASE EXCESS -2.0 mmol/L Normal -2.0-3.0 [facility] Comment on above: Performed By: #### L [id number] ####[facility] (BEAKER)[address] [place] [place] [address] POCT IONIZED CALCIUM 0.99 mmol/L Low 1.12-1.32 [facility] Comment on above: Performed By: #### L [id number] ####[facility] ([facility]ER)[address] [place] [place] [address] POCT PCO2 40.9 mmHg Low 41.0-51.0 [facility] Comment on above: Performed By: #### L [id number] ####[facility] (BEAKER)[address] [place] [place] [address] POCT PH 7.36 Normal 7.31-7.41 [facility] Comment on above: Performed By: #### L [id number] ####[facility] (BEAKER)[address] [place] [place] [address] POCT PO2 480 mmHg High 80-105 [facility] Comment on above: Performed By: #### L [id number] ####[facility] (BEAKER)[address] [place] [place] [address] POCT SO2 100 % High 95-98 [facility] Comment on above: Performed By: #### L [id number] ####[facility] (BEAKER)[address] [place] [place] [address] Potassium [Moles/Vol] 4.8 mmol/L Normal 3.5-4.9 [facility] Comment on above: Performed By: #### L [id number] ####[facility] (BEAKER)[address] [place] [place] [address] Sodium [Moles/Vol] 136 mmol/L Low 138.0-146.0 [facility] Comment on above: Performed By: #### L [id number] ####[facility] (BEAKER)[address] [place] [place] [address] CO2 [Moles/Vol] 24.0 mmol/L Normal 21.0-29.0 [facility] Comment on above: Performed By: #### L [id number] ####[facility] (BEAKER)[address] [place] [place] [address] Glucose [Mass/Vol] 197 mg/dL High 70-105 [facility] Comment on above: Performed By: #### L [id number] ####[facility] (BEAKER)[address] [place] [place] [address] HCO3 (Bld) [Moles/Vol] 22.7 mmol/L Low 23.0-28.0 [facility] Comment on above: Performed By: #### L [id number] ####[facility] (BEAKER)[address] [place] [address] Hematocrit (Bld) [Volume fraction] 29 % Low 38-51 [facility] Comment on above: Performed By: #### L [id number] ####[facility] (BEAKER)[address] [place] [place] [address] Hemoglobin (Bld) [Mass/Vol] 9.9 g/dL Low 12.0-17.0 [facility] Comment on above: Performed By: #### L [id number] ####[facility] (BEAKER)[address] [place] [address] POCT BASE EXCESS -2.0 mmol/L Normal -2.0-3.0 [facility] Comment on above: Performed By: #### L [id number] ####[facility] (BEAKER)[address] [place] [place] [address] POCT IONIZED CALCIUM 1.01 mmol/L Low 1.12-1.32 [facility] Comment on above: Performed By: #### L [id number] ####[facility] (BEAKER)[address] [place] [place] [address] POCT PCO2 39.4 mmHg Low 41.0-51.0 [facility] Comment on above: Performed By: #### L [id number] ####[facility] (BEAKER)[address] [place] [place] [address] POCT PH 7.37 Normal 7.31-7.41 [facility] Comment on above: Performed By: #### L [id number] ####[facility] (BEAKER)[address] [place] [place] [address] POCT PO2 508 mmHg High 80-105 [facility] Comment on above: Performed By: #### L [id number] ####[facility] (BEAKER)[address] [place] [place] [address] POCT SO2 100 % High 95-98 [facility] Comment on above: Performed By: #### L [id number] ####[facility] ([facility])[address] [place] [address] Potassium [Moles/Vol] 4.6 mmol/L Normal 3.5-4.9 [facility] Comment on above: Performed By: #### L [id number] ####[facility] (BEAKER)[address] [place] [address] Sodium [Moles/Vol] 135 mmol/L Low 138.0-146.0 [facility] Comment on above: Performed By: #### L [id number] ####[facility] ([facility])[address] [place] [address] CO2 [Moles/Vol] 25.0 mmol/L Normal 21.0-29.0 [facility] Comment on above: Performed By: #### L [id number] ####[facility] (BEAKER)[address] [place] [address] Glucose [Mass/Vol] 186 mg/dL High 70-105 [facility] Comment on above: Performed By: #### L [id number] ####[facility] (BEAKER)[address] [place] [address] HCO3 (Bld) [Moles/Vol] 24.0 mmol/L Normal 23.0-28.0 [facility] Comment on above: Performed By: #### L [id number] ####[facility] (BEAKER)[address] [place] [address] Hematocrit (Bld) [Volume fraction] 26 % Low 38-51 [facility] Comment on above: Performed By: #### L [id number] ####[facility] (BEAKER)[address] [place] [address] Hemoglobin (Bld) [Mass/Vol] 8.8 g/dL Low 12.0-17.0 [facility] Comment on above: Performed By: #### L [id number] ####[facility] (BEAKER)[address] [place] [address] POCT BASE EXCESS -2.0 mmol/L Normal -2.0-3.0 [facility] Comment on above: Performed By: #### L [id number] ####[facility] (BEAKER)[address] [place] [address] POCT IONIZED CALCIUM 1.00 mmol/L Low 1.12-1.32 [facility] Comment on above: Performed By: #### L [id number] ####[facility] (BEAKER)[address] [place] [address] POCT PCO2 43.4 mmHg Normal 41.0-51.0 [facility] Comment on above: Performed By: #### L [id number] ####[facility] (BEAKER)[address] [place] [address] POCT PH 7.35 Normal 7.31-7.41 [facility] Comment on above: Performed By: #### L [id number] ####[facility] (BEAKER)[address] [place] [address] POCT PO2 485 mmHg High 80-105 [facility] Comment on above: Performed By: #### L [id number] ####[facility] (BEAKER)[address] [place] [address] POCT SO2 100 % High 95-98 [facility] Comment on above: Performed By: #### L [id number] ####[facility] (BEAKER)[address] [place] [address] Potassium [Moles/Vol] 4.5 mmol/L Normal 3.5-4.9 [facility] Comment on above: Performed By: #### L [id number] ####[facility] (BEAKER)[address] [place] [place] [address] Sodium [Moles/Vol] 136 mmol/L Low 138.0-146.0 [facility] Comment on above: Performed By: #### L [id number] ####[facility] (BEAKER)[address] [place] [place] [address] CO2 [Moles/Vol] 26.0 mmol/L Normal 21.0-29.0 [facility] Comment on above: Performed By: #### L [id number] ####[facility] (BEAKER)[address] [place] [address] Glucose [Mass/Vol] 188 mg/dL High 70-105 [facility] Comment on above: Performed By: #### L [id number] ####[facility] (BEAKER)[address] [place] [place] [address] HCO3 (Bld) [Moles/Vol] 24.0 mmol/L Normal 23.0-28.0 [facility] Comment on above: Performed By: #### L [id number] ####[facility] (BEAKER)[address] [place] [place] [address] Hematocrit (Bld) [Volume fraction] 26 % Low 38-51 [facility] Comment on above: Performed By: #### L [id number] ####[facility] (BEAKER)[address] [place] [address] Hemoglobin (Bld) [Mass/Vol] 8.8 g/dL Low 12.0-17.0 [facility] Comment on above: Performed By: #### L [id number] ####[facility] (BEAKER)[address] [place] [place] [address] POCT BASE EXCESS -3.0 mmol/L Low -2.0-3.0 [facility] Comment on above: Performed By: #### L [id number] ####[facility] (BEAKER)[address] [place] [address] POCT IONIZED CALCIUM 0.96 mmol/L Low 1.12-1.32 [facility] Comment on above: Performed By: #### L [id number] ####[facility] (BEAKER)[address] [place] [address] POCT PCO2 52.1 mmHg High 41.0-51.0 [facility] Comment on above: Performed By: #### L [id number] ####[facility] ([facility])[address] [place] [address] POCT PH 7.27 Low 7.31-7.41 [facility] Comment on above: Performed By: #### L [id number] ####[facility] ([facility])[address] [place] [address] POCT PO2 468 mmHg High 80-105 [facility] Comment on above: Performed By: #### L [id number] ####[facility] ([facility])[address] [place] [address] POCT SO2 100 % High 95-98 [facility] Comment on above: Performed By: #### L [id number] ####[facility] ([facility])[address] [place] [address] Potassium [Moles/Vol] 5.3 mmol/L High 3.5-4.9 [facility] Comment on above: Performed By: #### L [id number] ####[facility] ([facility])[address] [place] [address] Sodium [Moles/Vol] 135 mmol/L Low 138.0-146.0 [facility] Comment on above: Performed By: #### L [id number] ####[facility] ([facility])[address] [place] [address] CO2 [Moles/Vol] 25.0 mmol/L Normal 21.0-29.0 [facility] Comment on above: Performed By: #### L [id number] ####[facility] (BEAKER)[address] [place] [address] Glucose [Mass/Vol] 167 mg/dL High 70-105 [facility] Comment on above: Performed By: #### L [id number] ####[facility] (BEAKER)[address] [place] [place] [address] HCO3 (Bld) [Moles/Vol] 23.3 mmol/L Normal 23.0-28.0 [facility] Comment on above: Performed By: #### L [id number] ####[facility] (BEAKER)[address] [place] [place] [address] Hematocrit (Bld) [Volume fraction] 40 % Normal 38-51 [facility] Comment on above: Performed By: #### L [id number] ####[facility] (BEAKER)[address] [place] [place] [address] Hemoglobin (Bld) [Mass/Vol] 13.6 g/dL Normal 12.0-17.0 [facility] Comment on above: Performed By: #### L [id number] ####[facility] (BEAKER)[address] [place] [address] POCT BASE EXCESS -3.0 mmol/L Low -2.0-3.0 [facility] Comment on above: Performed By: #### L [id number] ####[facility] (BEAKER)[address] [place] [place] [address] POCT IONIZED CALCIUM 1.15 mmol/L Normal 1.12-1.32 [facility] Comment on above: Performed By: #### L [id number] ####[facility] (BE[facility]ER)[address] [place] [place] [address] POCT PCO2 47.5 mmHg Normal 41.0-51.0 [facility] Comment on above: Performed By: #### L [id number] ####[facility] (BEAKER)[address] [place] [address] POCT PH 7.30 Low 7.31-7.41 [facility] Comment on above: Performed By: #### L [id number] ####[facility] (BEAKER)[address] [place] [address] POCT PO2 173 mmHg High 80-105 [facility] Comment on above: Performed By: #### L [id number] ####[facility] (BEAKER)[address] [place] [address] POCT SO2 99 % High 95-98 [facility] Comment on above: Performed By: #### L [id number] ####[facility] (BEAKER)[address] [place] [address] Potassium [Moles/Vol] 4.3 mmol/L Normal 3.5-4.9 [facility] Comment on above: Performed By: #### L [id number] ####[facility] (BEAKER)[address] [place] [address] Sodium [Moles/Vol] 136 mmol/L Low 138.0-146.0 [facility] Comment on above: Performed By: #### L [id number] ####[facility] (BEAKER)[address] [place] [address] CO2 [Moles/Vol] 23.0 mmol/L Normal 21.0-29.0 [facility] Comment on above: Performed By: #### L [id number] ####[facility] (BEAKER)[address] [place] [address] Glucose [Mass/Vol] 120 mg/dL High 70-105 [facility] Comment on above: Performed By: #### L [id number] ####[facility] (BEAKER)[address] [place] [address] HCO3 (Bld) [Moles/Vol] 21.8 mmol/L Low 23.0-28.0 [facility] Comment on above: Performed By: #### L [id number] ####[facility] (BEAKER)[address] [place] [address] Hematocrit (Bld) [Volume fraction] 39 % Normal 38-51 [facility] Comment on above: Performed By: #### L [id number] ####[facility] ([facility] [place] [address] Hemoglobin (Bld) [Mass/Vol] 13.3 g/dL Normal 12.0-17.0 [facility] Comment on above: Performed By: #### L [id number] ####[facility] ([facility])[address] [place] [address] POCT BASE EXCESS -3.0 mmol/L Low -2.0-3.0 [facility] Comment on above: Performed By: #### L [id number] ####[facility] ([facility])[address] [address] POCT IONIZED CALCIUM 1.13 mmol/L Normal 1.12-1.32 [facility] Comment on above: Performed By: #### L [id number] ####[facility] ([facility])[address] [address] POCT PCO2 36.4 mmHg Low 41.0-51.0 [facility] Comment on above: Performed By: #### L [id number] ####[facility] ([facility])[address] [address] POCT PH 7.39 Normal 7.31-7.41 [facility] Comment on above: Performed By: #### L [id number] ####[facility] ([facility])[address] [address] POCT PO2 228 mmHg High 80-105 [facility] Comment on above: Performed By: #### L [id number] ####[facility] ([facility])[address] [address] POCT SO2 100 % High 95-98 [facility] Comment on above: Performed By: #### L [id number] ####[facility] ([facility])[address] [address] Potassium [Moles/Vol] 4.0 mmol/L Normal 3.5-4.9 [facility] Comment on above: Performed By: #### L [id number] ####[facility] ([place])[address] [place] [address] Sodium [Moles/Vol] 138 mmol/L Normal 138.0-146.0 [facility] Comment on above: Performed By: #### L [id number] ####[facility] ([place])[address] [place] [address] PROTIME-INRon 12-15-2023 INR IN PPP BY COAGULATION ASSAY 1.24 High 0.90-1.10 [facility] Comment on above: Result Comment: ACCC P [...] By: #### L [id number] ####[facility] ([place])[address] [place] [address] PROTHROMBIN TIME (PT) IN PPP BY COAGULATION ASSAY 15.5 Seconds High 12.3-14.8 [facility] Comment on above: Performed By: #### L [id number] ####[facility] ([place])[address] [place] [address] TYPE AND SCREENon 12-15-2023 AB SCREEN Negative Normal [facility] Health Comment on above: Performed By: #### L [id number] ####[facility] BLOOD B[facility], ABO group Nom (Bld) A Normal [facility] Comment on above: Performed By: #### L [id number] ####[facility] BLOOD [facility], RH TYPE IN BLOOD Positive Normal [facility] Comment on above: Performed By: #### L [id number] ####[facility] B[facility]OD [facility], 30on 12-14-2023 30 The patient is Moder ately Stable - Low risk of patient condition declining or worsening The patient's goals for the shift include sleep prior to CABG The clinical goals for the shift include vss Normal [facility] 30 Normal [facility] ANESon 12-14-2023 ANES [facility] ANTI-XA (HEPARIN LEVEL)on HEPARIN UNFRACTIONATED (U/ML) IN PPP BY CHROMOGENIC METHOD 0.55 IU/mL Normal 0.3-0.7 [facility] Comment on above: Result Comment: Nevis roxaban and Apixaban will interfere with the anti Xa assay used to monitor UFH and LMWH. Performed By: #### L [id number] ####[facility] (AKER)[address] [facility] [place] [address] BASIC METABOLIC PANELon 11-23 Anion gap [Moles/Vol] 12 mmol/L Normal 7-20 [facility] Comment on above: Performed By: #### L [id number] ####[facility] (BEAKER)[address] [facility] [place] [address] Calcium [Mass/Vol] 8.9 mg/dL Normal 8.6-10.3 [facility] Comment on above: Performed By: #### L [id number] ####[facility] (BEAKER)[address] [place] [place] [address] Chloride [Moles/Vol] 101 mmol/L Normal 98-107 [facility] Comment on above: Performed By: #### L [id number] ####[facility] ([facility])[address] [place] [place] [address] CO2 [Moles/Vol] 26 mmol/L Normal 21-31 [facility] Comment on above: Performed By: #### L [id number] ####[facility] ([facility])[address] [place] [place] [address] Creatinine [Mass/Vol] 0.83 mg/dL Normal 0.60-1.20 [facility] Comment on above: Performed By: #### L [id number] ####[facility] ([facility])[address] [place] [place] [address] GLOMERULAR FILTRATION RATE ML/MIN/1.73 SQ M.PREDICTED 79.7 mL/min/1.73m*2 Normal >60.0 [facility] Comment on above: Result Comment: The [facility]???s estimated glomerular filtration rate (eGFR) will no [...] By: #### L [id number] ####[facility] ([facility])[address] [place] [place] [address] Glucose [Mass/Vol] 170 mg/dL High 70-100 [facility] Comment on above: Performed By: #### L [id number] ####[facility] ([facility])[address] [place] [place] [address] Potassium [Moles/Vol] 4.6 mmol/L Normal 3.5-5.1 [facility] Comment on above: Performed By: #### L [id number] ####[facility] ([facility])[address] [place] [address] Sodium [Moles/Vol] 134 mmol/L Low 136-145 [facility] Comment on above: Performed By: #### L [id number] ####[facility] ([facility])[address] [place] [address] Urea nitrogen [Mass/Vol] 17 mg/dL Normal 7-25 [facility] Comment on above: Performed By: #### L [id number] ####[facility] ([facility])[address] [place] [address] UREA NITROGEN/CREATININE (MASS RATIO) IN SER/PLAS 20.5 [facility] Comment on above: Performed By: #### L [id number] ####[facility] ([facility])[address] [place] [address] 30on 12-13-2023 30 [facility] 30 [facility] ANTI-XA (HEPARIN LEVEL)on HEPARIN UNFRACTIONATED (U/ML) IN PPP BY CHROMOGENIC METHOD 0.49 IU/mL Normal 0.3-0.7 [facility] Comment on above: Result Comment: Nevis roxaban and Apixaban will interfere with the anti Xa assay used to monitor UFH and LMWH. Performed By: #### L [id number] ####[facility] ([facility])[address] [place] [address] HEPARIN UNFRACTIONATED (U/ML) IN PPP BY CHROMOGENIC METHOD 0.60 IU/mL Normal 0.3-0.7 [facility] Comment on above: Result Comment: Rosa roxaban and Apixaban will interfere with the anti Xa assay used to monitor UFH and LMWH. Performed By: #### L [id number] ####[facility] ([facility])[address] [place] [address] HEPARIN UNFRACTIONATED (U/ML) IN PPP BY CHROMOGENIC METHOD 0.70 IU/mL Normal 0.3-0.7 [facility] Comment on above: Order Comment: Check anti-Xa level every 6 hours while on heparin infusion, or per protocol. Result Comment: Nevis roxaban and Apixaban will interfere with the anti Xa assay used to monitor UFH and LMWH. Performed By: #### L [id number] ####[facility] (BEAKER)[address] [place] [address] HEPARIN UNFRACTIONATED (U/ML) IN PPP BY CHROMOGENIC METHOD 0.90 IU/mL Critically high 0.3-0.7 [facility] Comment on above: Order Comment: Check anti-Xa level every 6 hours while on heparin infusion, or per protocol. Result Comment: Nevis roxaban and Apixaban will interfere with the anti Xa assay used to monitor UFH and LMWH. Performed By: #### L [id number] ####[facility] ([facility])[address] [place] [address] BASIC METABOLIC PANELon 09-2 Anion gap [Moles/Vol] 10 mmol/L Normal 7-20 [facility] Comment on above: Performed By: #### L [id number] ####[facility] ([facility])[address] [place] [address] Calcium [Mass/Vol] 8.6 mg/dL Normal 8.6-10.3 [facility] Comment on above: Performed By: #### L [id number] ####[facility] (BEAKER)[address] [place] [address] Chloride [Moles/Vol] 101 mmol/L Normal 98-107 [facility] Comment on above: Performed By: #### L [id number] ####[facility] (BEAKER)[address] [place] [address] CO2 [Moles/Vol] 27 mmol/L Normal 21-31 [facility] Comment on above: Performed By: #### L [id number] ####[facility] (BEAKER)[address] [place] [address] Creatinine [Mass/Vol] 0.85 mg/dL Normal 0.60-1.20 [facility] Comment on above: Performed By: #### L [id number] ####[facility] (BEAKER)[address] [place] [address] GLOMERULAR FILTRATION RATE ML/MIN/1.73 SQ M.PREDICTED 77.4 mL/min/1.73m*2 Normal >60.0 [facility] Comment on above: Result Comment: The [facility]???s estimated glomerular filtration rate (eGFR) will no [...] By: #### L [id number] ####[facility] ([facility])[address] [place] [address] Glucose [Mass/Vol] 133 mg/dL High 70-100 [facility] Comment on above: Performed By: #### L [id number] ####[facility] ([facility])[address] [facility] [place] [address] Potassium [Moles/Vol] 4.1 mmol/L Normal 3.5-5.1 [facility] Comment on above: Performed By: #### L [id number] ####[facility] ([facility])[address] [place] [address] Sodium [Moles/Vol] 134 mmol/L Low 136-145 [facility] Comment on above: Performed By: #### L [id number] ####[facility] ([facility])[address] [facility] [place] [address] Urea nitrogen [Mass/Vol] 21 mg/dL Normal 7-25 [facility] Comment on above: Performed By: #### L [id number] ####[facility] ([facility])[address] [place] [address] UREA NITROGEN/CREATININE (MASS RATIO) IN SER/PLAS 24.7 Normal [facility] Comment on above: Performed By: #### L [id number] ####[facility] ([facility])[address] [place] [address] CBCon 12-13-2023 Erythrocyte distribution width (RBC) [Ratio] 12.6 % Normal 11.5-15.0 [facility] Comment on above: Performed By: #### L [id number] ####[facility] (BEAKER)[address] [place] [address] ERYTHROCYTE MEAN CORPUSCULAR HEMOGLOBIN CONCENTRATION (G/DL) BY AUTOMATED 33.8 g/dL Normal 32.0-35.0 [facility] Comment on above: Performed By: #### L [id number] ####[facility] ([facility])[address] [place] [place] [address] Hematocrit (Bld) [Volume fraction] 39.9 % Normal 36.0-48.0 [facility] Comment on above: Performed By: #### L [id number] ####[facility] ([facility])[address] [place] [place] [address] Hemoglobin (Bld) [Mass/Vol] 13.5 g/dL Normal 12.0-15.0 [facility] Comment on above: Performed By: #### L [id number] ####[facility] (BEAKER)[address] [place] [address] MCH (RBC) [Entitic mass] 31.5 pg Normal 27.0-33.0 [facility] Comment on above: Performed By: #### L [id number] ####[facility] (BEAKER)[address] [place] [address] MCV (RBC) [Entitic vol] 93.2 fL Normal 82.0-98.0 [facility] Comment on above: Performed By: #### L [id number] ####[facility] (BEAKER)[address] [place] [place] [address] PLATELETS (10*3/UL) IN BLOOD AUTOMATED COUNT 196 10*3/uL Normal 150-400 [facility] Comment on above: Performed By: #### L [id number] ####[facility] (BEAKER)[address] [place] [place] [address] RBC (Bld) [#/Vol] 4.28 10*6/uL Normal 3.80-5.00 [facility] Comment on above: Performed By: #### L [id number] ####[facility] ([facility])[address] [place] [address] WBC (Bld) [#/Vol] 5.64 10*3/uL Normal 4.00-10.60 [facility] Comment on above: Performed By: #### L [id number] ####[facility] ([facility])[address] [place] [address] 30on 12-12-2023 30 Normal [facility] 30 Normal [facility] 30 Normal [facility] ANTI-XA (HEPARIN LEVEL)on HEPARIN UNFRACTIONATED (U/ML) IN PPP BY CHROMOGENIC METHOD 0.89 IU/mL High 0.3-0.7 [facility] Comment on above: Order Comment: Check anti-Xa level every 6 hours while on heparin infusion, or per protocol. Result Comment: Rosa roxaban and Apixaban will interfere with the anti Xa assay used to monitor UFH and LMWH. Performed By: #### L [id number] ####[facility] ([facility])[address] [place] [address] HEPARIN UNFRACTIONATED (U/ML) IN PPP BY CHROMOGENIC METHOD 0.97 IU/mL Critically high 0.3-0.7 [facility] Comment on above: Result Comment: Rosa roxaban and Apixaban will interfere with the anti Xa assay used to monitor UFH and LMWH. Performed By: #### L [id number] ####[facility] ([facility])[address] [place] [address] HEPARIN UNFRACTIONATED (U/ML) IN PPP BY CHROMOGENIC METHOD <0.10 Invalid Interpretation Code 0.3-0.7 [facility] Comment on above: Order Comment: Check anti-Xa level every 6 hours while on heparin infusion, or per protocol. Result Comment: Rosa roxaban and Apixaban will interfere with the anti Xa assay used to monitor UFH and LMWH. Performed By: #### L [id number] ####[facility] ([facility])[address] [place] [address] HEPARIN UNFRACTIONATED (U/ML) IN PPP BY CHROMOGENIC METHOD <0.10 Invalid Interpretation Code 0.3-0.7 [facility] Comment on above: Order Comment: Check anti-Xa level every 6 hours while on heparin infusion, or per protocol. Result Comment: Rosa roxaban and Apixaban will interfere with the anti Xa assay used to monitor UFH and LMWH. Performed By: #### L [id number] ####[facility] ([facility])[address] [place] [address] Abstracton 12-12-2023 Abstract [facility] Anesthesiaon 12-12-2023 Anesthesia [facility] HPon 12-12-2023 HP H&P reviewed. The edward garcia was examined and there are no changes to the H&P. 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 Patient will be returning to unit shortly. [facility] NURSNOTE Patient was transpor [place] to OR for surgery before 7am. [facility] 30on 12-11-2023 30 [facility] 30 [facility] 30 [facility] APTTon 12-11-2023 ACTIVATED PARTIAL THROMBOPLASTIN TIME IN PPP BY COAGULATION ASSAY 88.0 Seconds High 25.0-35.0 [facility] Comment on above: Order Comment: Basel ine aPTT before initiating heparin infusion. Result Comment: Clin ical significance of the APTT is questionable in the presence of heparin. Performed By: #### L [id number] ####[facility] ([facility])[address] [place] [address] ACTIVATED PARTIAL THROMBOPLASTIN TIME IN PPP BY COAGULATION ASSAY 87.2 Seconds High 25.0-35.0 [facility] Comment on above: Result Comment: Clin ical significance of the APTT is questionable in the presence of heparin. Performed By: #### L [id number] ####[facility] (BEAKER)[address] [place] [address] BASIC METABOLIC PANELon 09- Anion gap [Moles/Vol] 17 mmol/L Normal 7-20 [facility] Comment on above: Performed By: #### L [id number] ####[facility] (BEAKER)[address] [place] [address] Calcium [Mass/Vol] 9.2 mg/dL Normal 8.6-10.3 [facility] Comment on above: Performed By: #### L [id number] ####[facility] (BEAKER)[address] [place] [address] Chloride [Moles/Vol] 101 mmol/L Normal 98-107 [facility] Comment on above: Performed By: #### L [id number] ####[facility] ([facility])[address] [place] [address] CO2 [Moles/Vol] 19 mmol/L Low 21-31 [facility] Comment on above: Performed By: #### L [id number] ####[facility] (BEAKER)[address] [place] [address] Creatinine [Mass/Vol] 0.96 mg/dL Normal 0.60-1.20 [facility] Comment on above: Performed By: #### L [id number] ####[facility] ([facility])[address] [place] [place] [address] GLOMERULAR FILTRATION RATE ML/MIN/1.73 SQ M.PREDICTED 66.9 mL/min/1.73m*2 Normal >60.0 [facility] Comment on above: Result Comment: The [facility]???s estimated glomerular filtration rate (eGFR) will no [...] By: #### L [id number] ####[facility] ([facility])[address] [place] [address] Glucose [Mass/Vol] 108 mg/dL High 70-100 [facility] Comment on above: Performed By: #### L [id number] ####[facility] ([facility])[address] [place] [address] Potassium [Moles/Vol] 5.1 mmol/L Normal 3.5-5.1 [facility] Comment on above: Performed By: #### L [id number] ####[facility] ([facility])[address] [place] [place] [address] Sodium [Moles/Vol] 132 mmol/L Low 136-145 [facility] Comment on above: Performed By: #### L [id number] ####[facility] ([facility])[address] [place] [address] Urea nitrogen [Mass/Vol] 19 mg/dL Normal 7-25 [facility] Comment on above: Performed By: #### L [id number] ####[facility] ([facility])[address] [place] [address] UREA NITROGEN/CREATININE (MASS RATIO) IN SER/PLAS 19.8 Normal [facility] Comment on above: Performed By: #### L [id number] ####[facility] ([facility])[address] [place] [address] CBCon 12-11-2023 Erythrocyte distribution width (RBC) [Ratio] 12.6 % Normal 11.5-15.0 [facility] Comment on above: Performed By: #### L [id number] ####[facility] ([facility])[address] [place] [address] ERYTHROCYTE MEAN CORPUSCULAR HEMOGLOBIN CONCENTRATION (G/DL) BY AUTOMATED 34.1 g/dL Normal 32.0-35.0 [facility] Comment on above: Performed By: #### L [id number] ####[facility] (BEAKER)[address] [place] [address] Hematocrit (Bld) [Volume fraction] 42.2 % Normal 36.0-48.0 [facility] Comment on above: Performed By: #### L [id number] ####[facility] (BEAKER)[address] [place] [address] Hemoglobin (Bld) [Mass/Vol] 14.4 g/dL Normal 12.0-15.0 [facility] Comment on above: Performed By: #### L [id number] ####[facility] ([facility])[address] [place] [address] MCH (RBC) [Entitic mass] 30.8 pg Normal 27.0-33.0 [facility] Comment on above: Performed By: #### L [id number] ####[facility] ([facility])[address] [place] [address] MCV (RBC) [Entitic vol] 90.2 fL Normal 82.0-98.0 [facility] Comment on above: Performed By: #### L [id number] ####[facility] ([facility])[address] [place], [place] [address] PLATELETS (10*3/UL) IN BLOOD AUTOMATED COUNT 182 10*3/uL Normal 150-400 [facility] Comment on above: Performed By: #### L [id number] ####[facility] ([facility])[address] [place] [address] RBC (Bld) [#/Vol] 4.68 10*6/uL Normal 3.80-5.00 [facility] Comment on above: Performed By: #### L [id number] ####[facility] ([facility])[address] [place] [address] WBC (Bld) [#/Vol] 6.23 10*3/uL Normal 4.00-10.60 [facility] Comment on above: Performed By: #### L [id number] ####[facility] ([facility])[address] [place] [place] [address] CBC WITH AUTO DIFFERENTIALon 12-11-2023 Basophils (Bld) [#/Vol] 0.07 10*3/uL Normal 0.00-0.20 [facility] Comment on above: Performed By: #### L [id number] ####[facility] ([facility])[address] [place] [address] Basophils/100 WBC (Bld) 1.1 % High 0.0-1.0 [facility] Comment on above: Performed By: #### L [id number] ####[facility] ([facility])[address] [place] [address] Eosinophils (Bld) [#/Vol] 0.02 10*3/uL Normal 0.00-0.50 [facility] Comment on above: Performed By: #### L [id number] ####[facility] ([facility])[address] [place] [address] Eosinophils/100 WBC (Bld) 0.3 % Normal 0.0-6.0 [facility] Comment on above: Performed By: #### L [id number] ####[facility] ([facility])[address] [place] [address] Erythrocyte distribution width (RBC) [Ratio] 12.6 % Normal 11.5-15.0 [facility] Comment on above: Performed By: #### L [id number] ####[facility] ([facility])[address] [place] [address] ERYTHROCYTE MEAN CORPUSCULAR HEMOGLOBIN CONCENTRATION (G/DL) BY AUTOMATED 33.7 g/dL Normal 32.0-35.0 [facility] Comment on above: Performed By: #### L [id number] ####[facility] ([facility])[address] [place] [place] [address] Hematocrit (Bld) [Volume fraction] 45.1 % Normal 36.0-48.0 [facility] Comment on above: Performed By: #### L [id number] ####[facility] (BEAKER)[address] [place] [address] Hemoglobin (Bld) [Mass/Vol] 15.2 g/dL High 12.0-15.0 [facility] Comment on above: Performed By: #### L [id number] ####[facility] (BEAKER)[address] [place] [place] [address] Immature granulocytes (Bld) [#/Vol] 0.04 10*3/uL Normal 0.00-0.20 [facility] Comment on above: Performed By: #### L [id number] ####[facility] (BEAKER)[address] [place] [address] Immature granulocytes/100 WBC (Bld) 0.6 % Normal 0.0-1.0 [facility] Comment on above: Performed By: #### L [id number] ####[facility] (BEAKER)[address] [place] [place] [address] Lymphocytes (Bld) [#/Vol] 1.44 10*3/uL Normal 1.20-4.00 [facility] Comment on above: Performed By: #### L [id number] ####[facility] (BEAKER)[address] [place] [place] [address] Lymphocytes/100 WBC (Bld) 21.8 % Normal 20.0-45.0 [facility] Comment on above: Performed By: #### L [id number] ####[facility] (BEAKER)[address] [place] [place] [address] MCH (RBC) [Entitic mass] 31.5 pg Normal 27.0-33.0 [facility] Comment on above: Performed By: #### L [id number] ####[facility] (BEAKER)[address] [place] [place] [address] MCV (RBC) [Entitic vol] 93.6 fL Normal 82.0-98.0 [facility] Comment on above: Performed By: #### L [id number] ####[facility] (BEAKER)[address] [place] [place] [address] Monocytes (Bld) [#/Vol] 0.46 10*3/uL Normal 0.10-1.00 [facility] Comment on above: Performed By: #### L [id number] ####[facility] ([facility])[address] [place] [place] [address] Monocytes/100 WBC (Bld) 7.0 % Normal 5.0-12.0 [facility] Comment on above: Performed By: #### L [id number] ####[facility] ([facility])[address] [place] [address] Neutrophils (Bld) [#/Vol] 4.57 10*3/uL Normal 1.60-7.60 [facility] Comment on above: Performed By: #### L [id number] ####[facility] ([facility])[address] [place] [address] Neutrophils/100 WBC (Bld) 69.2 % Normal 40.0-72.0 [facility] Comment on above: Performed By: #### L [id number] ####[facility] ([facility])[address] [place] [address] NRBC (PER 100 WBCS) BY AUTOMATED COUNT 0.0 % Normal 0 [facility] Comment on above: Performed By: #### L [id number] ####[facility] ([facility])[address] [place], [place] [address] PLATELETS (10*3/UL) IN BLOOD AUTOMATED COUNT 207 10*3/uL Normal 150-400 [facility] Comment on above: Performed By: #### L [id number] ####[facility] ([facility])[address] [place], [place] [address] RBC (Bld) [#/Vol] 4.82 10*6/uL Normal 3.80-5.00 [facility] Comment on above: Performed By: #### L [id number] ####[facility] ([facility])[address] [place], [place] [address] WBC (Bld) [#/Vol] 6.60 10*3/uL Normal 4.00-10.60 [facility] Comment on above: Performed By: #### L [id number] ####[facility] ([facility])[address] [place] [address] MAGNESIUMon 12-11-2023 Magnesium [Mass/Vol] 2.2 mg/dL Normal 1.9-2.7 [facility] Comment on above: Performed By: #### L [id number] ####[facility] ([facility])[address] [place] [address] MRSA/MSSA DNA NASALon 2023 MRSA DNA Negative Normal Negative [facility] Comment on above: Order Comment: Testi ng [...] preclude nasal colonization. Performed By: #### L [id number] ####[facility] ([facility])[address] [place] [address] MSSA DNA Negative Normal Negative [facility] Comment on above: Order Comment: Testi ng [...] preclude nasal colonization. Performed By: #### L [id number] ####[facility] ([facility])[address] [place] [address] PHOSPHORUSon 12-11-2023 Magnesium [Mass/Vol] 4.5 mg/dL Normal 2.5-5.0 [facility] Comment on above: Performed By: #### L [id number] ####[facility] ([facility])[address] [place] [address] PROTIME-INRon 12-11-2023 INR IN PPP BY COAGULATION ASSAY 0.99 Normal 0.90-1.10 [facility] Comment on above: Result Comment: ACCC P [...] By: #### L [id number] ####[facility] [employer] ([employer])[address] [place] [address] PROTHROMBIN TIME (PT) IN PPP BY COAGULATION ASSAY 13.1 Seconds Normal 12.3-14.8 [facility] Comment on above: Performed By: #### L [id number] ####[facility] LAB ([place])[address] [place] [address] TYPE AND SCREENon 12-11-2023 AB SCREEN Negative Normal [facility] Comment on above: Performed By: #### L [id number] ####[facility] BLOOD BANK, ABO group Nom (Bld) A Normal [facility] Comment on above: Performed By: #### L [id number] ####[facility] BLOOD BANK, RH TYPE IN BLOOD Positive Normal [facility] Comment on above: Performed By: #### L [id number] ####[facility] BLOOD BANK, URINALYSIS MICROSCOPIC WITH REFLEX CULTUREon 12-11-2023 CASTS IN URINE Normal [facility] Comment on above: Performed By: #### L [id number] ####[facility] LAB (BEAKER)[address] [place] [address] CRYSTALS IN URINE Normal [facility] Comment on above: Performed By: #### L [id number] ####[facility]OSP[facility] LAB (BEAKER)[address] [place] [address] OTHER MICROSCOPIC ELEMENTS Normal [facility] Comment on above: Performed By: #### L [id number] ####[facility] LAB (BEAKER)[address] [place] [address] RBC (#/HPF) IN URINE SEDIMENT 0-2 Abnormal None Seen [facility] Comment on above: Performed By: #### L [id number] ####[facility] LAB (BEAKER)[address] [place] [address] SQUAMOUS EPITHELIAL CELLS (#/HPF) IN URINE SEDIMENT Many Abnormal None Seen, Occasional [facility] Comment on above: Performed By: #### L [id number] ####[facility] LAB (BEAKER)[address] [place] [address] WBC (LEUKOCYTE) (#/HPF) IN URINE SEDIMENT 51-100 Abnormal None Seen [facility] Comment on above: Performed By: #### L [id number] ####[facility] LAB (BEAKER)[address] [place] [address] URINALYSIS WITH REFLEX CULTU REon 12-11-2023 BILIRUBIN, TOTAL PRESENCE IN URINE Negative Normal Negative [facility] Comment on above: Performed By: #### L [id number] ####[facility] LAB (BEAKER)[address] [place] [address] Clarity (U) Slightly Cloudy Abnormal Clear [facility] Comment on above: Performed By: #### L [id number] ####[facility] LAB (BEAKER)[address] [place] [address] Color (U) Yellow Normal Yellow [facility] Comment on above: Performed By: #### L [id number] ####[facility] LAB ([facility])[address] [place] [address] Glucose (U) [Mass/Vol] Negative Normal Negative [facility] Comment on above: Performed By: #### L [id number] ####[facility] LAB ([facility])[address] [place] [address] HEMOGLOBIN PRESENCE IN URINE Negative Normal Negative [facility] Comment on above: Performed By: #### L [id number] ####[facility] LAB ([facility])[address] [place] [address] Ketones Ql (U) Trace Abnormal Negative [facility] Comment on above: Performed By: #### L [id number] ####[facility] LAB ([facility])[address] [place] [address] LEUKOCYTE ESTERASE PRESENCE IN URINE BY TEST STRIP Moderate Abnormal Negative [facility] Comment on above: Performed By: #### L [id number] ####[facility] LAB ([facility])[address] [place] [address] NITRITE PRESENCE IN URINE Negative Normal Negative [facility] Comment on above: Performed By: #### L [id number] ####[facility] LAB ([facility])[address] [place] [address] pH (U) 6.0 [pH] Normal 5.0-8.0 [facility] Comment on above: Performed By: #### L [id number] ####[facility] LAB ([facility])[address] [place] [address] Protein (U) [Mass/Vol] Negative Normal Negative [facility] Comment on above: Performed By: #### L [id number] ####[facility] LAB ([facility])[address] [place] [address] Specific gravity (U) [Rel density] 1.016 Normal 1.015-1.020 [facility] Comment on above: Performed By: #### L [id number] ####[facility] LAB (BEAKER)[address] [place] [place] [address] 30on 12-10-2023 30 Normal [facility] 30 Normal [facility] ANTI-XA (HEPARIN LEVEL)on HEPARIN UNFRACTIONATED (U/ML) IN PPP BY CHROMOGENIC METHOD 0.41 IU/mL Normal 0.3-0.7 [facility] Comment on above: Result Comment: Nevis roxaban and Apixaban will interfere with the anti Xa assay used to monitor UFH and LMWH. Performed By: #### L [id number] ####[facility] LAB ([facility])[address] [place] [address] APTTon 12-10-2023 ACTIVATED PARTIAL THROMBOPLASTIN TIME IN PPP BY COAGULATION ASSAY 87.5 Seconds High 25.0-35.0 [facility] Comment on above: Result Comment: Clin ical significance of the APTT is questionable in the presence of heparin. Performed By: #### L [id number] ####[facility] LAB ([facility])[address] [place] [address] BASIC METABOLIC PANELon 11-22 Anion gap [Moles/Vol] 9 mmol/L Normal 7-20 [facility] Comment on above: Performed By: #### L [id number] ####[facility] LAB ([facility])[address] [place] [address] Calcium [Mass/Vol] 9.0 mg/dL Normal 8.6-10.3 [facility] Comment on above: Performed By: #### L [id number] ####[facility] LAB ([facility])[address] [place] [address] Chloride [Moles/Vol] 101 mmol/L Normal 98-107 [facility] Comment on above: Performed By: #### L [id number] ####[facility] LAB ([facility])[address] [place] [address] CO2 [Moles/Vol] 26 mmol/L Normal 21-31 [facility] Comment on above: Performed By: #### L [id number] ####[facility] LAB ([facility])[address] [place] [place] [address] Creatinine [Mass/Vol] 0.85 mg/dL Normal 0.60-1.20 [facility] Comment on above: Performed By: #### L [id number] ####[facility] LAB ([facility])[address] [place] [place] [address] GLOMERULAR FILTRATION RATE ML/MIN/1.73 SQ M.PREDICTED 77.4 mL/min/1.73m*2 Normal >60.0 [facility] Comment on above: Result Comment: The [facility]???s estimated glomerular filtration rate (eGFR) will no [...] By: #### L [id number] ####[facility] LAB ([facility])[address] [place] [address] Glucose [Mass/Vol] 118 mg/dL High 70-100 [facility] Comment on above: Performed By: #### L [id number] ####[facility] LAB ([facility])[address] [place] [place] [address] Potassium [Moles/Vol] 4.4 mmol/L Normal 3.5-5.1 [facility] Comment on above: Performed By: #### L [id number] ####[facility] LAB ([facility])[address] [place] [place] [address] Sodium [Moles/Vol] 132 mmol/L Low 136-145 [facility] Comment on above: Performed By: #### L [id number] ####[facility] LAB ([facility])[address] [place] [place] [address] Urea nitrogen [Mass/Vol] 15 mg/dL Normal 7-25 [facility] Comment on above: Performed By: #### L [id number] ####[facility] LAB ([facility])[address] [place] [address] UREA NITROGEN/CREATININE (MASS RATIO) IN SER/PLAS 17.6 Normal [facility] Comment on above: Performed By: #### L [id number] ####[facility] LAB ([facility])[address] [place] [address] NURSNOTEon 12-10-2023 NURSNOTE Patient off unit for MRI. Normal [facility] Orders Onlyon 12-10-2023 Orders Only Normal [facility] 30on 12-09-2023 30 Normal [facility] 30 The patient is Moder ately Stable - Low risk of patient condition declining or worsening The patient's goals for the shift include testing The clinical goals for the shift include testing Normal [facility] APTTon 12-09-2023 ACTIVATED PARTIAL THROMBOPLASTIN TIME IN PPP BY COAGULATION ASSAY 90.0 Seconds High 25.0-35.0 [facility] Comment on above: Result Comment: Clin ical significance of the APTT is questionable in the presence of heparin. Performed By: #### L [id number] ####[facility] LAB ([facility])[address] [place] [address] Anesthesiaon 12-09-2023 Anesthesia Normal [facility] CBCon 12-09-2023 Erythrocyte distribution width (RBC) [Ratio] 12.4 % Normal 11.5-15.0 [facility] Comment on above: Performed By: #### L [id number] ####[facility] LAB ([facility])[address] [place] [address] ERYTHROCYTE MEAN CORPUSCULAR HEMOGLOBIN CONCENTRATION (G/DL) BY AUTOMATED 34.2 g/dL Normal 32.0-35.0 [facility] Comment on above: Performed By: #### L [id number] ####[facility] LAB ([facility])[address] [place] [address] Hematocrit (Bld) [Volume fraction] 43.3 % Normal 36.0-48.0 [facility] Comment on above: Performed By: #### L [id number] ####[facility] LAB ([facility])[address] [place] [place] [address] Hemoglobin (Bld) [Mass/Vol] 14.8 g/dL Normal 12.0-15.0 [facility] Comment on above: Performed By: #### L [id number] ####[facility] LAB ([facility])[address] [place] [place] [address] MCH (RBC) [Entitic mass] 31.3 pg Normal 27.0-33.0 [facility] Comment on above: Performed By: #### L [id number] ####[facility] LAB ([facility])[address] [place] [place] [address] MCV (RBC) [Entitic vol] 91.5 fL Normal 82.0-98.0 [facility] Comment on above: Performed By: #### L [id number] ####[facility] LAB ([facility])[address] [place] [address] PLATELETS (10*3/UL) IN BLOOD AUTOMATED COUNT 203 10*3/uL Normal 150-400 [facility] Comment on above: Performed By: #### L [id number] ####[facility] LAB ([facility])[address] [place] [address] RBC (Bld) [#/Vol] 4.73 10*6/uL Normal 3.80-5.00 [facility] Comment on above: Performed By: #### L [id number] ####[facility] LAB ([facility])[address] [place] [place] [address] WBC (Bld) [#/Vol] 4.95 10*3/uL Normal 4.00-10.60 [facility] Comment on above: Performed By: #### L [id number] ####[facility] LAB ([facility])[address] [place] [place] [address] CONSULTon 12-09-2023 CONSULT Normal [facility] MRI CARDIAC MORPHOLOGY AND F UNCTION W AND WO IV CONTRASTon 12-09-2023 MRI CARDIAC MORPHOLOGY AND FUNCTION W AND WO IV CONTRAST Invalid Interpretation Code [facility] 30on 12-08-2023 30 Normal [facility] 30 Normal [facility] APTTon 12-08-2023 ACTIVATED PARTIAL THROMBOPLASTIN TIME IN PPP BY COAGULATION ASSAY 100.5 Seconds High 25.0-35.0 [facility] Comment on above: Result Comment: Clin ical significance of the APTT is questionable in the presence of heparin. Performed By: #### L [id number] ####[facility] LAB ([place])[address] [place] [address] Orders Onlyon 12-08-2023 Orders Only Normal [facility] TYPE AND SCREENon 12-08-2023 AB SCREEN Negative Normal [facility] Comment on above: Performed By: #### L [id number] ####[facility] BLOOD BANK, ABO group Nom (Bld) A Normal [facility] Comment on above: Performed By: #### L [id number] ####[facility] BLOOD BANK, RH TYPE IN [facility]LOOD Positive [facility] on above: Performed By: #### L [id number] ####[facility] BLOOD BANK, APTTon 12-07-2023 ACTIVATED PARTIAL THROMBOPLASTIN TIME IN PPP BY COAGULATION ASSAY 83.7 Seconds High 25.0-35.0 [facility] Comment on above: Result Comment: Clin ical significance of the APTT is questionable in the presence of heparin. Performed By: #### L [id number] ####[facility] LAB ([place])[address] [place] [address] ACTIVATED PARTIAL THROMBOPLASTIN TIME IN PPP BY COAGULATION ASSAY 84.7 Seconds High 25.0-35.0 [facility] Comment on above: Result Comment: Clin ical significance of the APTT is questionable in the presence of heparin. Performed By: #### L [id number] ####[facility] LAB ([place])[address] [facility] [address] ACTIVATED PARTIAL THROMBOPLASTIN TIME IN PPP BY COAGULATION ASSAY 94.5 Seconds High 25.0-35.0 [facility] Comment on above: Result Comment: Clin ical significance of the APTT is questionable in the presence of heparin. Performed By: #### L [id number] ####[facility] LAB ([facility])[address] [place] [address] CBCon 12-07-2023 Erythrocyte distribution width (RBC) [Ratio] 12.5 % Normal 11.5-15.0 [facility] Comment on above: Performed By: #### L [id number] ####[facility] LAB ([facility])[address] [place] [address] ERYTHROCYTE MEAN CORPUSCULAR HEMOGLOBIN CONCENTRATION (G/DL) BY AUTOMATED 34.2 g/dL Normal 32.0-35.0 [facility] Comment on above: Performed By: #### L [id number] ####[facility] LAB ([facility])[address] [place] [place] [address] Hematocrit (Bld) [Volume fraction] 42.7 % Normal 36.0-48.0 [facility] Comment on above: Performed By: #### L [id number] ####[facility] LAB ([facility])[address] [place] [address] Hemoglobin (Bld) [Mass/Vol] 14.6 g/dL Normal 12.0-15.0 [facility] Comment on above: Performed By: #### L [id number] ####[facility] LAB ([facility])[address] [place] [place] [address] MCH (RBC) [Entitic mass] 31.5 pg Normal 27.0-33.0 [facility] Comment on above: Performed By: #### L [id number] ####[facility] LAB ([facility])[address] [place] [address] MCV (RBC) [Entitic vol] 92.0 fL Normal 82.0-98.0 [facility] Comment on above: Performed By: #### L [id number] ####[facility] LAB ([facility])[address] [place] [place] [address] PLATELETS (10*3/UL) IN BLOOD AUTOMATED COUNT 221 10*3/uL Normal 150-400 [facility] Comment on above: Performed By: #### L [id number] ####[facility] LAB ([facility])[address] [place] [place] [address] RBC (Bld) [#/Vol] 4.64 10*6/uL Normal 3.80-5.00 [facility] Comment on above: Performed By: #### L [id number] ####[facility] LAB ([facility])[address] [place] [place] [address] WBC (Bld) [#/Vol] 4.68 10*3/uL Normal 4.00-10.60 [facility] Comment on above: Performed By: #### L [id number] ####[facility] LAB ([facility])[address] [place] [place] [address] 30on 12-06-2023 30 Normal [facility] APTTon 12-06-2023 ACTIVATED PARTIAL THROMBOPLASTIN TIME IN PPP BY COAGULATION ASSAY >200.0 Critically high 25.0-35.0 [facility] Comment on above: Result Comment: Clin ical significance of the APTT is questionable in the presence of heparin. Performed By: #### L [id number] ####[facility] LAB ([facility])[address] [place] [place] [address] BASIC METABOLIC PANELon 11-22 Anion gap [Moles/Vol] 10 mmol/L Normal 7-20 [facility] Comment on above: Performed By: #### L [id number] ####[facility] LAB ([facility])[address] [place] [place] [address] Calcium [Mass/Vol] 8.9 mg/dL Normal 8.6-10.3 [facility] Comment on above: Performed By: #### L [id number] ####[facility] LAB ([facility])[address] [place] [place] [address] Chloride [Moles/Vol] 104 mmol/L Normal 98-107 [facility] Comment on above: Performed By: #### L [id number] ####[facility] LAB ([facility])[address] [place] [place] [address] CO2 [Moles/Vol] 27 mmol/L Normal 21-31 [facility] Comment on above: Performed By: #### L [id number] ####[facility] LAB ([facility])[address] [place] [place] [address] Creatinine [Mass/Vol] 0.74 mg/dL Normal 0.60-1.20 [facility] Comment on above: Performed By: #### L [id number] ####[facility] LAB ([facility])[address] [place] [place] [address] GLOMERULAR FILTRATION RATE ML/MIN/1.73 SQ M.PREDICTED 91.4 mL/min/1.73m*2 Normal >60.0 [facility] Comment on above: Result Comment: The [facility]???s estimated glomerular filtration rate (eGFR) will no [...] By: #### L [id number] ####[facility] LAB ([facility])[address] [place] [place] [address] Glucose [Mass/Vol] 133 mg/dL High 70-100 [facility] Comment on above: Performed By: #### L [id number] ####[facility] LAB ([facility])[address] [place] [place] [address] Potassium [Moles/Vol] 4.1 mmol/L Normal 3.5-5.1 [facility] Comment on above: Performed By: #### L [id number] ####[facility] LAB ([facility])[address] [place] [place] [address] Sodium [Moles/Vol] 137 mmol/L Normal 136-145 [facility] Comment on above: Performed By: #### L [id number] ####[facility] LAB (BEAKER)[address] [place] [place] [address] Urea nitrogen [Mass/Vol] 15 mg/dL Normal 7-25 [facility] Comment on above: Performed By: #### L [id number] ####[facility] [place] [place] [address] UREA NITROGEN/CREATININE (MASS RATIO) IN SER/PLAS 20.3 Normal [facility] Comment on above: Performed By: #### L [id number] ####[facility] ([facility] [place] [address] CBCon 12-06-2023 Erythrocyte distribution width (RBC) [Ratio] 12.7 % Normal 11.5-15.0 [facility] Comment on above: Performed By: #### L [id number] ####[facility] LAB ([facility])[address] [place] [address] ERYTHROCYTE MEAN CORPUSCULAR HEMOGLOBIN CONCENTRATION (G/DL) BY AUTOMATED 34.1 g/dL Normal 32.0-35.0 [facility] Comment on above: Performed By: #### L [id number] ####[facility] ([facility])[address] [place] [place] [address] Hematocrit (Bld) [Volume fraction] 44.0 % Normal 36.0-48.0 [facility] Comment on above: Performed By: #### L [id number] ####[facility] ([facility])[address] [place] [address] Hemoglobin (Bld) [Mass/Vol] 15.0 g/dL Normal 12.0-15.0 [facility] Comment on above: Performed By: #### L [id number] ####[facility] ([facility] [place] [address] MCH (RBC) [Entitic mass] 30.9 pg Normal 27.0-33.0 [facility] Comment on above: Performed By: #### L [id number] ####[facility] ([facility])[address] [place] [address] MCV (RBC) [Entitic vol] 90.7 fL Normal 82.0-98.0 [facility] Comment on above: Performed By: #### L [id number] ####[facility] ([facility])[address] [place] [address] PLATELETS (10*3/UL) IN BLOOD AUTOMATED COUNT 226 10*3/uL Normal 150-400 [facility] Comment on above: Performed By: #### L [id number] ####[facility] ([facility])[address] [place] [address] RBC (Bld) [#/Vol] 4.85 10*6/uL Normal 3.80-5.00 [facility] Comment on above: Performed By: #### L [id number] ####[facility] LAB ([facility])[address] [place] [address] WBC (Bld) [#/Vol] 6.22 10*3/uL Normal 4.00-10.60 [facility] Comment on above: Performed By: #### L [id number] ####[facility] LAB ([facility])[address] [place] [address] CONSULTon 12-06-2023 CONSULT Normal [facility] CONSULT Normal [facility] CT ABDOMEN PELVIS W IV CONTR Marisabel 12-06-2023 CT ABDOMEN PELVIS W IV CONTRAST Normal [facility] CT CHEST W IV CONTRASTon CT CHEST W IV CONTRAST Normal Un [facility] HEMOGLOBIN A1Con 12-06-2023 Glucose [Mass/Vol] 120 mg/dL Normal [facility] Comment on above: Performed By: #### L [id number] ####[facility] LAB ([facility])[address] [place] [place] [address] HbA1c (Bld) [Mass fraction] 5.8 % Normal 4.0-6.0 [facility] Comment on above: Performed By: #### L [id number] ####[facility] ([facility])[address] [place] [place] [address] HPon 12-06-2023 HP Normal [facility] MRSA/MSSA DNA NASALon 2023 MRSA DNA Negative Normal Negative [facility] Comment on above: Order Comment: Testi ng [...] preclude nasal colonization. Performed By: #### L [id number] ####[facility] LAB ([facility])[address] [place] [address] MSSA DNA Negative Normal Negative [facility] Comment on above: Order Comment: Testi ng [...] preclude nasal colonization. Performed By: #### L [id number] ####[facility] LAB ([facility])[address] [place] [address] NURSNOTEon 12-06-2023 NURSNOTE Pt back from CT. Lab called and notified that pt is available for stat blood draws before heparin drip is set up. Normal [facility] PLATELET COUNTon 12-06-2023 PLATELETS (10*3/UL) IN BLOOD AUTOMATED COUNT 269 10*3/uL Normal 150-400 [facility] Comment on above: Performed By: #### L [id number] ####[facility] ([facility])[address] [place] [address] URINALYSISon 12-06-2023 BILIRUBIN, TOTAL PRESENCE IN URINE Negative Normal Negative [facility] Comment on above: Performed By: #### L [id number] ####[facility] ([facility])[address] [place] [address] Clarity (U) Clear Normal Clear [facility] Comment on above: Performed By: #### L [id number] ####[facility] ([facility])[address] [place] [address] Color (U) Yellow Normal Yellow [facility] Comment on above: Performed By: #### L [id number] ####[facility] ([facility])[address] [place] [address] Glucose (U) [Mass/Vol] Negative Normal Negative [facility] Comment on above: Performed By: #### L [id number] ####[facility] ([facility])[address] [place] [address] HEMOGLOBIN PRESENCE IN URINE Small Abnormal Negative [facility] Comment on above: Performed By: #### L [id number] ####[facility] ([facility])[address] [place] [address] Ketones Ql (U) Negative Normal Negative [facility] Comment on above: Performed By: #### L [id number] ####[facility] ([facility])[address] [place] [address] LEUKOCYTE ESTERASE PRESENCE IN URINE BY TEST STRIP Trace Abnormal Negative [facility] Comment on above: Performed By: #### L [id number] ####[facility] ([facility])[address] [place] [address] NITRITE PRESENCE IN URINE Negative Normal Negative [facility] Comment on above: Performed By: #### L [id number] ####[facility] ([facility])[address] [place] [address] pH (U) 7.0 [pH] Normal 5.0-8.0 [facility] Comment on above: Performed By: #### L [id number] ####[facility] ([facility])[address] [place] [address] Protein (U) [Mass/Vol] Negative Normal Negative Un [facility] Comment on above: Performed By: #### L [id number] ####[facility] ([facility])[address] [place] [address] Specific gravity (U) [Rel density] 1.031 High 1.015-1.020 [facility] Comment on above: Performed By: #### L [id number] ####[facility] ([facility])[address] [place] [address] URINALYSIS MICROSCOPICon CASTS IN URINE Normal [facility] Comment on above: Performed By: #### L [id number] ####[facility] ([facility])[address] [place] [address] CRYSTALS IN URINE Normal [facility] Comment on above: Performed By: #### L [id number] ####[facility] ([facility])[address] [place] [address] MUCUS (#/HPF) IN URINE SEDIMENT Few Normal None Seen, Occasional, Few [facility] Comment on above: Performed By: #### L [id number] ####[facility] ([facility])[address] [place] [address] RBC (#/HPF) IN URINE SEDIMENT 0-2 Abnormal None Seen [facility] Comment on above: Performed By: #### L [id number] ####[facility] ([facility])[address] [place] [address] SQUAMOUS EPITHELIAL CELLS (#/HPF) IN URINE SEDIMENT Moderate Abnormal None Seen, Occasional [facility] Comment on above: Performed By: #### L [id number] ####[facility] ([facility])[address] [place] [address] WBC (LEUKOCYTE) (#/HPF) IN URINE SEDIMENT 0-2 Abnormal None Seen [facility] Comment on above: Performed By: #### L [id number] ####[facility] ([facility])[address] [place] [address] 30on 12-05-2023 30 Normal [facility] ANESon 12-05-2023 ANES Normal [facility] B-TYPE NATRIURETIC PEPTIDEon 12-05-2023 Natriuretic peptide B (Bld) [Mass/Vol] 506 pg/mL High 0-100 [facility] Comment on above: Performed By: #### L [id number] ####[facility] ([facility])[address] [place] [address] BASIC METABOLIC PANELon 11-22 Anion gap [Moles/Vol] 12 mmol/L Normal 7-20 [facility] Comment on above: Performed By: #### L [id number] ####[facility] ([facility])[address] [place], [place] [address] Calcium [Mass/Vol] 9.1 mg/dL Normal 8.6-10.3 [facility] Comment on above: Performed By: #### L [id number] ####[facility] ([facility])[address] [place] [address] Chloride [Moles/Vol] 99 mmol/L Normal 98-107 [facility] Comment on above: Performed By: #### L AB15 ####[facility] ([facility])[address] [place], [place] [address] CO2 [Moles/Vol] 27 mmol/L Normal 21-31 [facility] Comment on above: Performed By: #### L [id number] ####[facility] ([facility])[address] [place], [place] [address] Creatinine [Mass/Vol] 1.12 mg/dL Normal 0.60-1.20 [facility] Comment on above: Performed By: #### L [id number] ####[facility] ([facility])[address] [place] [address] GLOMERULAR FILTRATION RATE ML/MIN/1.73 SQ M.PREDICTED 55.6 mL/min/1.73m*2 Low >60.0 [facility] Comment on above: Result Comment: The [facility]???s estimated glomerular filtration rate (eGFR) will no [...] By: #### L AB15 ####[facility] ([facility])[address] [place] [address] Glucose [Mass/Vol] 111 mg/dL High 70-100 [facility] Comment on above: Performed By: #### L [id number] ####[facility] ([facility])[address] [place] [address] Potassium [Moles/Vol] 4.2 mmol/L Normal 3.5-5.1 [facility] Comment on above: Performed By: #### L [id number] ####[facility] ([facility])[address] [place] [address] Sodium [Moles/Vol] 134 mmol/L Low 136-145 [facility] Comment on above: Performed By: #### L [id number] ####[facility] ([facility])[address] [place] [address] Urea nitrogen [Mass/Vol] 18 mg/dL Normal 7-25 [facility] Comment on above: Performed By: #### L [id number] ####[facility] ([facility])[address] [place] [address] UREA NITROGEN/CREATININE (MASS RATIO) IN SER/PLAS 16.1 Normal [facility] Comment on above: Performed By: #### L [id number] ####[facility] ([facility])[address] [place] [address] CBCon 12-05-2023 Erythrocyte distribution width (RBC) [Ratio] 12.6 % Normal 11.5-15.0 [facility] Comment on above: Performed By: #### L [id number] ####[facility] ([facility])[address] [place] [address] ERYTHROCYTE MEAN CORPUSCULAR HEMOGLOBIN CONCENTRATION (G/DL) BY AUTOMATED 33.9 g/dL Normal 32.0-35.0 [facility] Comment on above: Performed By: #### L [id number] ####[facility] ([facility])[address] [place] [place] [address] Hematocrit (Bld) [Volume fraction] 46.9 % Normal 36.0-48.0 [facility] Comment on above: Performed By: #### L [id number] ####[facility] ([facility])[address] [place] [place] [address] Hemoglobin (Bld) [Mass/Vol] 15.9 g/dL High 12.0-15.0 [facility] Comment on above: Performed By: #### L [id number] ####[facility] ([facility])[address] [place] [address] MCH (RBC) [Entitic mass] 31.3 pg Normal 27.0-33.0 [facility] Comment on above: Performed By: #### L [id number] ####[facility] ([facility])[address] [place] [place] [address] MCV (RBC) [Entitic vol] 92.3 fL Normal 82.0-98.0 [facility] Comment on above: Performed By: #### L [id number] ####[facility] ([facility])[address] [place] [place] [address] PLATELETS (10*3/UL) IN BLOOD AUTOMATED COUNT 273 10*3/uL Normal 150-400 [facility] Comment on above: Performed By: #### L [id number] ####[facility] ([facility])[address] [place] [place] [address] RBC (Bld) [#/Vol] 5.08 10*6/uL High 3.80-5.00 [facility] Comment on above: Performed By: #### L [id number] ####[facility] (BEAKER)[address] [place] [address] WBC (Bld) [#/Vol] 6.71 10*3/uL Normal 4.00-10.60 [facility] Comment on above: Performed By: #### L [id number] ####[facility] ([facility])[address] [place] [address] HPon 12-05-2023 HP Normal [facility] HP Normal [facility] LIPID PANELon 12-05-2023 CHOL/HDL 3.6 mg/dL Normal [facility] Comment on above: Performed By: #### L [id number] ####[facility] ([facility])[address] [place] [address] Cholesterol [Mass/Vol] 174 mg/dL Normal 120-200 [facility] Comment on above: Performed By: #### L [id number] ####[facility] ([facility])[address] [place] [address] Magnesium [Mass/Vol] 157 mg/dL High 40-149 [facility] Comment on above: Result Comment: TRIG LYCERIDE REFERENCE RANGE:20 YEARS AND OLDER CARDIOVASCULAR RISKLESS THAN 150 mg/dL LOW [id number] TO 199 mg/dL BORDERLINE [id number] mg/dL AND GREATER HIGH RISK Performed By: #### L [id number] ####[facility] ([facility])[address] [place] [address] Magnesium [Mass/Vol] 95 mg/dL Normal 0-160 [facility] Comment on above: Performed By: #### L [id number] ####[facility] (BEAKER)[address] [place] [address] Magnesium [Mass/Vol] 48 mg/dL Normal 23-92 [facility] Comment on above: Performed By: #### L [id number] ####[facility] ([facility])[address] [place] [address] NON HDL CHOL. (LDL+VLDL) 126 Normal [facility] Comment on above: Performed By: #### L [id number] ####[facility] ([facility]ER)[address] [place] [address] TOTAL VLDL-C 31 mg/dL Normal 0-40 [facility] Comment on above: Performed By: #### L [id number] ####[facility] ([facility])[address] [place] [address] Labon 12-05-2023 Lab Normal [facility] MAGNESIUMon 12-05-2023 Magnesium [Mass/Vol] 2.0 mg/dL Normal 1.9-2.7 [facility] Comment on above: Performed By: #### L [id number] ####[facility] ([facility])[address] [place] [address] NURSNOTEon 12-05-2023 NURSNOTE Report called to Virginia martinez RN, she denies questions/concerns. Normal [facility] TROPONIN Ion 12-05-2023 Troponin I.cardiac [Mass/Vol] 0.06 ng/mL High 0.00-0.04 [facility] Comment on above: Performed By: #### L [id number] ####[facility] ([facility])[address] [place] [address] TSHon 12-05-2023 THYROTROPIN (MIU/L) IN SER/PLAS BY DETECTION LIMIT <= 0.05 MIU/L 3.41 mIU/L Normal 0.34-5.60 [facility] Comment on above: Performed By: #### L [id number] ####[facility] ([facility])[address] [place] [address] BNP ser/plasOrdered By: Maylin Navarro on 12-04-2023 Natriuretic peptide B (Bld) [Mass/Vol] 648.0 pg/mL High 5-100 [facility] Comment on above: Result Comment: PERF ORMED BY: [facility] [address] [place] [address] PATHOLOGIST KOSHER INSPECTOR HARVINDER GAGE M.D. Performed By: #### V ITD+D2+D3, THYROID PROF II #### [facility] , #### CMP, CBC #### [facility] [address] [place] [address] [place] Orders Onlyon 12-04-2023 Orders Only Normal [facility] Troponin I High Sensitivityo n 12-04-2023 Troponin I High Sensitivity 36.1 pg/mL High 0.0-15.0 [facility] Comment on above: Result Comment: PERF ORMED BY: [facility] [address] [place] [address] PATHOLOGIST KOSHER INSPECTOR HARVINDER GAGE M.D. Performed By: #### V ITD+D2+D3, THYROID PROF II #### [facility] , #### CMP, CBC #### [facility] [address] [place] [id number] [facility] Troponin I.cardiac [Mass/vol ume] in Serum or Plasma by Detection limit <= 0.01 ng/Ordered By: Gale Navarro on 12-04-2023 Troponin I.cardiac DL <= 0.01 ng/mL [Mass/Vol] 36.1 pg/mL High 0.0-15.0 [facility] HPon 12-03-2023 HP Normal [facility] Alanine aminotransferase [En zymatic activity/volume] in Serum or PlasmaOrdered By: Barby Chen on 12-02-2023 ALT [Catalytic activity/Vol] 15 U/L 7-52 [facility] Comment on above: Performed By: #### E SR, CBC, CMP #### [facility] [address] [place] [id number] [facility] Albumin [Mass/volume] in Ser um or Plasma by Bromocresol green (BCG) dye binding methoOrdered By: Barby Chen on 12-02-2023 Albumin BCG dye [Mass/Vol] 4.3 g/dL 3.5-5.7 [facility] Alkaline phosphatase [Enzyma tic activity/volume] in Serum or PlasmaOrdered By: Babry Chen on 12-02-2023 ALP [Catalytic activity/Vol] 87 U/L 34-104 [facility] Comment on above: Result Comment: PERF ORMED BY: [place] [address] PATHOLOGIST KOSHER INSPECTOR HARVINDER GAGE M.D. Performed By: #### E SR, CBC, CMP #### [address] Aspartate aminotransferase [ Enzymatic activity/volume] in Serum or PlasmaOrdered By: Barby Chen on 12-02-2023 AST [Catalytic activity/Vol] 20 U/L 13-39 [facility] Comment on above: Performed By: #### E SR, CBC, CMP #### [address] Automated basophil %Ordered By: Barby Chen on 12-02-2023 Basophils/100 WBC (Bld) 0.9 % . [facility] Comment on above: Performed By: #### E SR, CBC, CMP #### [address] Automated basophil countOrde red By: Barby Chen on 12-02-2023 Basophils (Bld) [#/Vol] 0.1 10*3/uL 0.0-0.2 [facility] Comment on above: Performed By: #### E SR, CBC, CMP #### [address] Automated blood monocyte cou ntOrdered By: Barby Chen on 12-02-2023 Monocytes (Bld) [#/Vol] 0.5 10*3/uL 0.0-0.8 [facility] Comment on above: Performed By: #### E SR, CBC, CMP #### [address] Automated eosinophil %Ordere d By: Barby Chen on 12-02-2023 Eosinophils/100 WBC (Bld) 0.1 % . [facility] Comment on above: Performed By: #### E SR, CBC, CMP #### [address] Automated eosinophil countOr dered By: Barby Chen on 12-02-2023 Eosinophils (Bld) [#/Vol] 0.0 10*3/uL 0.0-0.45 [facility] Comment on above: Performed By: #### E SR, CBC, CMP #### [facility] [address] [place] [address] Automated monocyte %Ordered By: Barby Chen on 12-02-2023 Monocytes/100 WBC (Bld) 6.3 % . [facility] Comment on above: Performed By: #### E SR, CBC, CMP #### [facility] [address] [place] [address] Automated neutrophil %Ordere d By: Barby Chen on 12-02-2023 Neutrophils/100 WBC (Bld) 77.8 % . [facility] Comment on above: Performed By: #### E SR, CBC, CMP #### [address] Bilirubin.total [Mass/volume ] in Serum or PlasmaOrdered By: Barby Chen on 12-02-2023 Bilirubin [Mass/Vol] 0.6 mg/dL 0.3-1.0 [facility] Comment on above: Performed By: #### E SR, CBC, CMP #### [facility] [address] [place] [address] Calcium [Mass/volume] in Ser um or PlasmaOrdered By: Barby Chen on 12-02-2023 Calcium [Mass/Vol] 9.5 mg/dL 8.6-10.3 [facility] Comment on above: Performed By: #### E SR, CBC, CMP #### [facility] [address] [place] [address] Carbon dioxide, total [Moles /volume] in Serum or PlasmaOrdered By: Barby Chen on 12-02-2023 CO2 [Moles/Vol] 27.8 mmol/L 21.0-31.0 [facility] Comment on above: Performed By: #### E SR, CBC, CMP #### [facility] [address] [place] [address] [place] Chloride [Moles/volume] in S davi or PlasmaOrdered By: Barby Chen on 12-02-2023 Chloride [Moles/Vol] 98 mmol/L 98-107 [facility] Comment on above: Performed By: #### E SR, CBC, CMP #### [facility] [address] [place] [address] Complete Blood Count Auto Di ffon 12-02-2023 Mean Corpuscular HGB Conc 34.7 g/dL Normal 32.0-35.0 [facility] Comment on above: Performed By: #### E SR, CBC, CMP #### [facility] [address] [place] [address] NRBC% 0.1 /100{WBC} Normal 0-0.5 [facility] Comment on above: Performed By: #### E SR, CBC, CMP #### [address] Comprehensive Metabolic Pane kirit 12-02-2023 Albumin [Mass/Vol] 4.3 g/dL Normal 3.5-5.7 [facility] Comment on above: Performed By: #### E SR, CBC, CMP #### [address] GFR/1.73 sq M.predicted MDRD (S/P/Bld) [Vol rate/Area] mL/min/{1.73_m2} Normal [facility] Comment on above: Performed By: #### E SR, CBC, CMP #### [facility] [address] [place] [address] Creatinine [Mass/volume] in Serum or PlasmaOrdered By: Barby Chen on 12-02-2023 Creatinine [Mass/Vol] 0.88 mg/dL 0.60-1.20 [facility] Comment on above: Performed By: #### E SR, CBC, CMP #### [facility] [address] [place] [address] Erythrocyte Sedimentation Ra antonio 12-02-2023 ESR (Bld) [Velocity] 37 mm/h High 0-29 [facility] Comment on above: Result Comment: PERF ORMED BY: [place] [address] PATHOLOGIST KOSHER INSPECTOR HARVINDER GAGE M.D. Performed By: #### V ITD+D2+D3, THYROID PROF II #### [facility] , #### CMP, CBC #### [address] Erythrocyte distribution wid th [Ratio] by Automated countOrdered By: Barby Chen on 12-02-2023 Erythrocyte distribution width (RBC) [Ratio] 13.3 % 11.9-15.3 [facility] Comment on above: Performed By: #### E SR, CBC, CMP #### [address] Erythrocyte sedimentation ra te by Photometric methodOrdered By: Barby Chen on 12-02-2023 ESR Photometric method (Bld) [Velocity] 37 mm/hr High 0-29 [facility] Erythrocytes [#/volume] in B lood by Automated countOrdered By: Barby Chen on 12-02-2023 RBC (Bld) [#/Vol] 4.97 10*6/uL 3.60-5.00 [facility] Comment on above: Performed By: #### E SR, CBC, CMP #### [address] Glucose [Mass/volume] in Ser um or PlasmaOrdered By: Barby Chen on 12-02-2023 Glucose [Mass/Vol] 126 mg/dL High 70-100 [facility] Comment on above: ADA recommended refe rence rangeRandom Glucose Reference Range is dependent on time and content of last meal. Glucose of more than 200 mg/dL in a nonstressed, ambulatory subject supports the diagnosis of Diabetes Mellitus. Result Comment: [place] om Glucose Reference Range is dependent on time and content of last meal. Glucose of more than 200 mg/dL in a nonstressed, ambulatory subject supports the diagnosis of Diabetes Mellitus. ADA recommended reference range Performed By: #### E SR, CBC, CMP #### [address] Hematocrit [Volume Fraction] of Blood by Automated countOrdered By: Barby Chen on 12-02-2023 Hematocrit (Bld) [Volume fraction] 45.3 % 34.0-46.4 [facility] Comment on above: Performed By: #### E SR, CBC, CMP #### [address] Hemoglobin [Mass/volume] in BloodOrdered By: Barby Chen on 12-02-2023 Hemoglobin (Bld) [Mass/Vol] 15.7 g/dL High 11.8-15.4 [facility] Comment on above: Performed By: #### E SR, CBC, CMP #### [facility] [address] [place] [address] Leukocytes [#/volume] correc chantelle for nucleated erythrocytes in Blood by Automated counOrdered By: Barby Chen on 12-02-2023 WBC corrected for nucl RBC Auto (Bld) [#/Vol] 7.9 10*3/uL 3.8-11.6 [facility] Leukocytes [#/volume] in Blo od by Automated countOrdered By: Barby Chen on 12-02-2023 WBC (Bld) [#/Vol] 7.9 10*3/uL 3.8-11.6 [facility] Comment on above: Performed By: #### E SR, CBC, CMP #### [facility] [address] [place] [address] Lymphocytes [#/volume] in Bl ood by Automated countOrdered By: Barby Chne on 12-02-2023 Lymphocytes (Bld) [#/Vol] 1.2 10*3/uL 1.00-4.8 [facility] Comment on above: Performed By: #### E SR, CBC, CMP #### [facility] [address] [place] [address] Lymphocytes/100 leukocytes i n Blood by Automated countOrdered By: Barby Chen on 12-02-2023 Lymphocytes/100 WBC (Bld) 14.9 % . [facility] Comment on above: Performed By: #### E SR, CBC, CMP #### [facility] [address] [place] [address] MCH [Entitic mass] by Automa chantelle countOrdered By: Barby Chen on 12-02-2023 MCH (RBC) [Entitic mass] 31.6 pg 24.7-34.3 [facility] Comment on above: Performed By: #### E SR, CBC, CMP #### [facility] [address] [place] [address] MCHC Auto (RBC) [Mass/Vol]Or dered By: Barby Chen on 12-02-2023 MCHC (RBC) [Mass/Vol] 34.7 g/dL 32.0-35.0 [facility] MCV [Entitic volume] by Auto mated countOrdered By: Barby Chen on 12-02-2023 MCV (RBC) [Entitic vol] 91.1 fL 80-100 [facility] Comment on above: Performed By: #### E SR, CBC, CMP #### [facility] [address] [place] [address] Neutrophils [#/volume] in Bl ood by Automated countOrdered By: Barby Chen on 12-02-2023 Neutrophils (Bld) [#/Vol] 6.2 10*3/uL 1.8-7.7 [facility] Comment on above: Performed By: #### E SR, CBC, CMP #### [facility] [address] [place] [address] No Panel InformationOrdered By: Barby Chen on 12-02-2023 Estimated GFR (CKD-EPI) > 60.0 mL/Min [facility] Creatinine Clearance (Chem N/A [facility] Nucleated erythrocytes [Pres ence] in Blood by Automated countOrdered By: Barby Chen on 12-02-2023 Nucleated RBC Auto Ql (Bld) 0.1 /100{WBC} 0-0.5 [facility] Platelet mean volume [Entiti c volume] in Blood by Automated countOrdered By: Barby Chen on 12-02-2023 Platelet mean volume (Bld) [Entitic vol] 7.6 fL 6.3-10.7 [facility] Comment on above: Performed By: #### E SR, CBC, CMP #### [address] Platelets [#/volume] in Bloo d by Automated countOrdered By: Barby Chen on 12-02-2023 Platelets (Bld) [#/Vol] 301 10*3/uL 150-450 [facility] Comment on above: Performed By: #### E SR, CBC, CMP #### [address] Potassium [Moles/volume] in Serum or PlasmaOrdered By: Barby Chen on 12-02-2023 Potassium [Moles/Vol] 4.4 mmol/L 3.5-5.1 [facility] Comment on above: Performed By: #### E SR, CBC, CMP #### [address] Protein [Mass/volume] in Ser um or PlasmaOrdered By: Barby Chen on 12-02-2023 Protein [Mass/Vol] 7.3 g/dL 6.4-8.9 [facility] Comment on above: Performed By: #### E SR, CBC, CMP #### [address] Serum globulin measurement b y calculation (mass/volume)Ordered By: Barby Chen on 12-02-2023 Globulin (S) [Mass/Vol] 3.0 g/dL [facility] Comment on above: Performed By: #### E SR, CBC, CMP #### [facility] [address] [place] [address] Serum or plasma albumin/glob ulin mass ratioOrdered By: Barby Chen on 12-02-2023 Albumin/Globulin [Mass ratio] 1.4 {ratio} [facility] Comment on above: Performed By: #### E SR, CBC, CMP #### [address] [place] [address] [place] Serum or plasma anion gap de terminationOrdered By: Barby Chen on 12-02-2023 Anion gap [Moles/Vol] 9.6 mmol/L 6.0-15.0 [facility] Comment on above: Performed By: #### E SR, CBC, CMP #### [facility] [address] [place] [address] [place] Sodium [Moles/volume] in Ser um or PlasmaOrdered By: Barby Chen on 12-02-2023 Sodium [Moles/Vol] 131 mmol/L Low 136-145 [facility] Comment on above: Performed By: #### E SR, CBC, CMP #### [address] Urea nitrogen [Mass/volume] in Serum or PlasmaOrdered By: Barby Chen on 12-02-2023 Urea nitrogen [Mass/Vol] 9 mg/dL 10-15 [facility] Comment on above: Performed By: #### E SR, CBC, CMP #### [facility] [facility] [address] [place] [address] A1C with Estimated Average G yan 11-03-2023 Glucose [Mass/Vol] 123 mg/dL Normal [facility] Comment on above: Result Comment: PERF ORMED BY: [place] [address] PATHOLOGIST KOSHER INSPECTOR HARVINDER GAGE M.D. Performed By: #### V ITD+D2+D3, THYROID PROF II #### [facility] , #### CMP, CBC #### [facility] [address] [place] [address] [place] Alanine aminotransferase [En zymatic activity/volume] in Serum or PlasmaOrdered By: Anibal Chaudhary on 11-03-2023 ALT [Catalytic activity/Vol] 12 U/L [facility] Comment on above: Performed By: #### V ITD+D2+D3, THYROID PROF II #### [facility] , #### CMP, CBC #### [facility] [address] [place] [address] [place] Albumin [Mass/volume] in Ser um or Plasma by Bromocresol green (BCG) dye binding methoOrdered By: Anibal Chaudhary on 11-03-2023 Albumin BCG dye [Mass/Vol] 4.2 g/dL 3.5-5.7 [facility] Alkaline phosphatase [Enzyma tic activity/volume] in Serum or PlasmaOrdered By: Anibal Chaudhary on 11-03-2023 ALP [Catalytic activity/Vol] 79 U/L 34-104 [facility] Comment on above: Performed By: #### V ITD+D2+D3, THYROID PROF II #### [facility] , #### CMP, CBC #### [facility] [address] [place] [address] Aspartate aminotransferase [ Enzymatic activity/volume] in Serum or PlasmaOrdered By: Anibal Chaudhary on 11-03-2023 AST [Catalytic activity/Vol] 16 U/L 13-39 [facility] Comment on above: Performed By: #### V ITD+D2+D3, THYROID PROF II #### [facility] , #### CMP, CBC #### [facility] [address] [place] [address] Bilirubin.total [Mass/volume ] in Serum or PlasmaOrdered By: Anibal Chaudhary on 11-03-2023 Bilirubin [Mass/Vol] 0.5 mg/dL 0.3-1.0 [facility] Comment on above: Performed By: #### V ITD+D2+D3, THYROID PROF II #### [facility] , #### CMP, CBC #### [facility] [address] [place] [address] [place] Calcium [Mass/volume] in Ser um or PlasmaOrdered By: Anibal Chaudhary on 11-03-2023 Calcium [Mass/Vol] 9.1 mg/dL 8.6-10.3 [facility] Comment on above: Performed By: #### V ITD+D2+D3, THYROID PROF II #### [facility] , #### CMP, CBC #### [facility] [address] [place] [address] [place] Carbon dioxide, total [Moles /volume] in Serum or PlasmaOrdered By: Anibal Chaudhary on 11-03-2023 CO2 [Moles/Vol] 26.2 mmol/L 21.0-31.0 [facility] Comment on above: Performed By: #### V ITD+D2+D3, THYROID PROF II #### [facility] , #### CMP, CBC #### [facility] [address] [place] [address] [place] Chloride [Moles/volume] in S davi or PlasmaOrdered By: Anibal Chaudhary on 11-03-2023 Chloride [Moles/Vol] 101 mmol/L 98-107 [facility] Comment on above: Performed By: #### V ITD+D2+D3, THYROID PROF II #### [facility] , #### CMP, CBC #### [facility] [address] [place] [address] [place] Cholesterol [Mass/volume] in Serum or PlasmaOrdered By: Anibal Chaudhary on 11-03-2023 Cholesterol [Mass/Vol] 162 mg/dL 140-200 [facility] Comment on above: Chol less than 200 m g/dl low riskChol 201-239 mg/dl borderline riskChol 240 mg/dl and greater high risk Result Comment: Chol less than 200 mg/dl low risk Chol 201-239 mg/dl borderline risk Chol 240 mg/dl and greater high risk Performed By: #### V ITD+D2+D3, THYROID PROF II #### [facility] , #### CMP, CBC #### [facility] [address] [place] [address] [place] Cholesterol in LDL Calc [Mas s/Vol]Ordered By: Anibal Chaudhary on 11-03-2023 Cholesterol in LDL [Mass/Vol] 86 mg/dL 0-100 [facility] Comment on above: LDL ATP III CLASSIFI CATIONLDL less than 100 mg/dL OptimalLDL 100-129 mg/dL Near or above optimalLDL 130-159 mg/dL Borderline highLDL 160-189 mg/dL HighLDL greater than 189 mg/dL Very high Cholesterol in VLDL Calc [Ma ss/Vol]Ordered By: Anibal Chaudhary on 11-03-2023 Cholesterol in VLDL [Mass/Vol] 20 mg/dL [facility] Comprehensive Metabolic Pane kirit 11-03-2023 Albumin [Mass/Vol] 4.2 g/dL Normal 3.5-5.7 [facility] Comment on above: Performed By: #### V ITD+D2+D3, THYROID PROF II #### [facility] , #### CMP, CBC #### [facility] [address] [place] [address] [place] GFR/1.73 sq M.predicted MDRD (S/P/Bld) [Vol rate/Area] mL/min/{1.73_m2} Normal [facility] Comment on above: Performed By: #### V ITD+D2+D3, THYROID PROF II #### [facility] , #### CMP, CBC #### [facility] [address] [place] [address] [place] Creatinine [Mass/volume] in Serum or PlasmaOrdered By: Anibal Chaudhary on 11-03-2023 Creatinine [Mass/Vol] 0.94 mg/dL 0.60-1.20 [facility] Comment on above: Performed By: #### V ITD+D2+D3, THYROID PROF II #### [facility] , #### CMP, CBC #### [facility] [address] [place] [address] [place] Glucose [Mass/volume] in Ser um or PlasmaOrdered By: Anibal Chaudhary on 11-03-2023 Glucose [Mass/Vol] 130 mg/dL High 70-100 [facility] Comment on above: ADA recommended refe rence rangeRandom Glucose Reference Range is dependent on time and content of last meal. Glucose of more than 200 mg/dL in a nonstressed, ambulatory subject supports the diagnosis of Diabetes Mellitus. Result Comment: [place] om Glucose Reference Range is dependent on time and content of last meal. Glucose of more than 200 mg/dL in a nonstressed, ambulatory subject supports the diagnosis of Diabetes Mellitus. ADA recommended reference range Performed By: #### V ITD+D2+D3, THYROID PROF II #### [facility] , #### CMP, CBC #### [facility] [address] Glucose mean value [Mass/vol ume] in Blood Estimated from glycated hemoglobinOrdered By: Anibal Chaudhary on 11-03-2023 Average glucose Estimated from glycated hemoglobin (Bld) [Mass/Vol] 123 mg/dL [facility] Hemoglobin A1c percentageOrd ered By: Anibal Chaudhary on 11-03-2023 HbA1c (Bld) [Mass fraction] 5.9 % High 4.3-5.6 [facility] Comment on above: Increased risk for d iabetes: 5.7 - 6.4diabetes: >6.4glycemic control for adults with diabetes: <7.0 Result Comment: Incr eased risk for diabetes: 5.7 - 6.4 diabetes: >6.4 glycemic control for adults with diabetes: <7.0 Performed By: #### V ITD+D2+D3, THYROID PROF II #### [facility] , #### CMP, CBC #### [address] Lipid Panelon 11-03-2023 LDL Cholesterol,Calculated 86 mg/dL Normal 0-100 [facility] Comment on above: Result Comment: LDL ATP III CLASSIFICATION LDL less than 100 mg/dL Optimal LDL 100-129 mg/dL Near or above optimal LDL 130-159 mg/dL Borderline high LDL 160-189 mg/dL High LDL greater than 189 mg/dL Very high Performed By: #### V ITD+D2+D3, THYROID PROF II #### [facility] , #### CMP, CBC #### [address] Triglyceride w/Reflex 101 mg/dL Normal 0-149 [facility] Comment on above: Result Comment: TRIG ATP III CLASSIFICATION TRIG less than 150 mg/dL Normal TRIG 150-199 mg/dL Borderline high TRIG 200-500 mg/dL High TRIG greater than 500 mg/dL Very high Standard traceable to the Center for Disease Conrtrol and Prevention (CDC) test method. Performed By: #### V ITD+D2+D3, THYROID PROF II #### [facility] , #### CMP, CBC #### [facility] [address] [place] [address] VLDL CHOLESTEROL 20 mg/dL Normal [facility] Comment on above: Performed By: #### V ITD+D2+D3, THYROID PROF II #### [facility] , #### CMP, CBC #### [address] No Panel InformationOrdered By: Anibal Chaudhary on 11-03-2023 Estimated GFR (CKD-EPI) > 60.0 mL/Min [facility] Creatinine Clearance (Chem N/A [facility] Potassium [Moles/volume] in Serum or PlasmaOrdered By: Anibal Chaudhary on 11-03-2023 Potassium [Moles/Vol] 4.5 mmol/L 3.5-5.1 [facility] Comment on above: Performed By: #### V ITD+D2+D3, THYROID PROF II #### [facility] , #### CMP, CBC #### [address] Protein [Mass/volume] in Ser um or PlasmaOrdered By: Anibal Chaudhary on 11-03-2023 Protein [Mass/Vol] 6.8 g/dL 6.4-8.9 [facility] Comment on above: Performed By: #### V ITD+D2+D3, THYROID PROF II #### [facility] , #### CMP, CBC #### [facility] [address] [place] [address] Serum globulin measurement b y calculation (mass/volume)Ordered By: Anibal Chaudhary on 11-03-2023 Globulin (S) [Mass/Vol] 2.6 g/dL [facility] Comment on above: Performed By: #### V ITD+D2+D3, THYROID PROF II #### [facility] , #### CMP, CBC #### [facility] [address] [place] [address] Serum or plasma albumin/glob ulin mass ratioOrdered By: Anibal Chaudhary on 11-03-2023 Albumin/Globulin [Mass ratio] 1.6 {ratio} [facility] Comment on above: Performed By: #### V ITD+D2+D3, THYROID PROF II #### [facility] , #### CMP, CBC #### [facility] [address] [place] [address] Serum or plasma anion gap de terminationOrdered By: Anibal Chaudhary on 11-03-2023 Anion gap [Moles/Vol] 10.3 mmol/L 6.0-15.0 [facility] Comment on above: Performed By: #### V ITD+D2+D3, THYROID PROF II #### [facility] , #### CMP, CBC #### [facility] [address] [place] [address] Serum or plasma high density lipoprotein (HDL) cholesterol measurementOrdered By: Anibal Chaudhary on 11-03-2023 Cholesterol in HDL [Mass/Vol] 56 mg/dL [facility] Comment on above: HDL CHOL ATP-III CLA SSIFICATION Cardiovascular RiskHDL > or equal to 60 mg/dL LOWHDL < 40 mg/dL HIGH Result Comment: HDL CHOL ATP-III CLASSIFICATION Cardiovascular Risk HDL > or equal to 60 mg/dL LOW HDL < 40 mg/dL HIGH Performed By: #### V ITD+D2+D3, THYROID PROF II #### [facility] , #### CMP, CBC #### [facility] [address] [place] [address] Serum or plasma total choles terol/high density lipoprotein (HDL) cholesterol mass ratOrdered By: Anibal Chaudhary on 11-03-2023 Cholesterol.total/Chol esterol in HDL [Mass ratio] 2.9 {ratio} <5.0 [facility] Comment on above: Performed By: #### V ITD+D2+D3, THYROID PROF II #### [facility] , #### CMP, CBC #### [facility] [address] [place] [address] Sodium [Moles/volume] in Ser um or PlasmaOrdered By: Anibal Chaudhary on 11-03-2023 Sodium [Moles/Vol] 133 mmol/L Low 136-145 [facility] Comment on above: Performed By: #### V ITD+D2+D3, THYROID PROF II #### [facility] , #### CMP, CBC #### [address] Thyroid Stim Hormone w/Rflxo n 11-03-2023 Thyroid Stim Hormone w/Rflx 1.79 u[iU]/mL Normal 0.45-5.33 [facility] Comment on above: Result Comment: PERF ORMED BY: [place] [address] PATHOLOGIST KOSHER INSPECTOR HARVINDER GAGE M.D. Performed By: #### V ITD+D2+D3, THYROID PROF II #### [facility] , #### CMP, CBC #### [facility] [address] [place] [address] Thyrotropin [Units/volume] i n Serum or PlasmaOrdered By: Anibal Chaudhary on 11-03-2023 TSH Qn 1.79 m[IU]/L 0.45-5.33 [facility] Thyroxine (T4) free [Mass/vo lume] in Serum or PlasmaOrdered By: Anibal Chaudhary on 11-03-2023 Free T4 [Mass/Vol] 0.92 ng/dL 0.61-1.12 [facility] Comment on above: Performed By: #### V ITD+D2+D3, THYROID PROF II #### [facility] , #### CMP, CBC #### [facility] [address] [place] [address] Triglyceride [Mass/volume] i n Serum or PlasmaOrdered By: Anibal Chaudhary on 11-03-2023 Triglyceride [Mass/Vol] 101 mg/dL 0-149 [facility] Comment on above: TRIG ATP III CLASSIF ICATIONTRIG less than 150 mg/dL NormalTRIG 150-199 mg/dL Borderline highTRIG 200-500 mg/dL High TRIG greater than 500 mg/dL Very highStandard traceable to the Center for Disease Conrtrol and Prevention (CDC) test method. Urea nitrogen [Mass/volume] in Serum or PlasmaOrdered By: Anibal Chaudhary on 11-03-2023 Urea nitrogen [Mass/Vol] 20 mg/dL 7 [facility] Comment on above: Performed By: #### V ITD+D2+D3, THYROID PROF II #### [facility] , #### CMP, CBC #### [facility] [address] Basophils Auto (Bld) [#/Vol] on 09-07-2023 Basophils (Bld) [#/Vol] 0.1 10 3/uL 0.0-0.1 [facility] Basophils/100 WBC Auto (Bld) on 09-07-2023 Basophils/100 WBC (Bld) 1.0 % 0.2-2.0 [facility] Eosinophils/100 WBC Auto (Bl d)on 09-07-2023 Eosinophils/100 WBC (Bld) 0.0 % Low 0.9-7.0 [facility] Erythrocyte distribution wid th Auto (RBC) [Ratio]on 09-07-2023 Erythrocyte distribution width (RBC) [Ratio] 12.2 % 11.0-15.0 [facility] Estimated glomerular filtrat ion rate (GFR) non- Americanon 09-07-2023 GFR/1.73 sq M.predicted among non-blacks MDRD (S/P/Bld) [Vol rate/Area] mL/min/{1.73_m2} >=60 [facility] Globulin Calc (S) [Mass/Vol] on 09-07-2023 Globulin (S) [Mass/Vol] 3.6 g/dL [facility] Hematocrit Auto (Bld) [Volum e fraction]on 06-16-2024 Hematocrit (Bld) [Volume fraction] 38.5 % 36.0-48.0 [facility] Hemoglobin [Mass/volume] in Bloodon 09-07-2023 Hemoglobin (Bld) [Mass/Vol] 13.3 g/dL 12.0-16.0 [facility] Laboratory - Chemistry and C hemistry - challengeon 09-07-2023 Albumin [Mass/Vol] 3.6 g/dL 3.4-5.0 [facility] ALP [Catalytic activity/Vol] 84 U/L 46-116 [facility] ALT [Catalytic activity/Vol] 19 U/L 14-59 [facility] AST [Catalytic activity/Vol] 16 U/L 15-37 [facility] Bilirubin [Mass/Vol] 0.4 mg/dL 0.2-1.0 [facility] Calcium [Mass/Vol] 8.9 mg/dL 8.5-10.1 [facility] Chloride [Moles/Vol] 96 mmol/L Low 98-107 [facility] CO2 [Moles/Vol] 31.7 mmol/L 21.0-32.0 [facility] Creatinine [Mass/Vol] 0.91 mg/dL 0.55-1.02 [facility] GFR/1.73 sq M.predicted MDRD (S/P/Bld) [Vol rate/Area] mL/min/{1.73_m2} >=60 [facility] Glucose [Mass/Vol] 108 mg/dL High 74-106 [facility] Potassium [Moles/Vol] 4.2 mmol/L 3.5-5.1 [facility] Protein [Mass/Vol] 7.2 g/dL 6.4-8.2 [facility] Sodium [Moles/Vol] 130 mmol/L Low 136-145 [facility] Urea nitrogen [Mass/Vol] 15.0 mg/dL 7.0-18.0 [facility] Urea nitrogen/Creatinine [Mass ratio] 16.5 mg/mg [facility] Laboratory - Hematology and Cell countson 09-07-2023 Immature granulocytes/100 WBC (Bld) 0.3 % 0.0-0.5 [facility] Leukocytes [#/volume] correc chantelle for nucleated erythrocytes in Blood by Automated counon 09-07-2023 WBC corrected for nucl RBC Auto (Bld) [#/Vol] 6.3 10 3/uL 4.0-11.0 [facility] Lymphocytes Auto (Bld) [#/Vo l]on 09-07-2023 Lymphocytes (Bld) [#/Vol] 1.4 10 3/uL 1.2-3.8 [facility] Lymphocytes/100 WBC Auto (Bl d)on 09-07-2023 Lymphocytes/100 WBC (Bld) 22.4 % 20.5-60.0 [facility] MCH Auto (RBC) [Entitic mass ]on 09-07-2023 MCH (RBC) [Entitic mass] 30.9 pg 26.7-34.0 [facility] MCHC Auto (RBC) [Mass/Vol]on 09-07-2023 MCHC (RBC) [Mass/Vol] 34.5 g/dL 29.9-35.2 [facility] MCV Auto (RBC) [Entitic vol] on 09-07-2023 MCV (RBC) [Entitic vol] 89.5 fL 81.0-99.0 [facility] Monocytes Auto (Bld) [#/Vol] on 09-07-2023 Monocytes (Bld) [#/Vol] 0.4 10 3/uL 0.3-0.8 [facility] Monocytes/100 WBC Auto (Bld) on 09-07-2023 Monocytes/100 WBC (Bld) 6.6 % 1.7-12.0 [facility] Neutrophils Auto (Bld) [#/Vo l]on 09-07-2023 Neutrophils (Bld) [#/Vol] 4.4 10 3/uL 1.4-6.5 [facility] Neutrophils/100 WBC Auto (Bl d)on 09-07-2023 Neutrophils/100 WBC (Bld) 69.7 % 43.0-75.0 [facility] No Panel Informationon 09-06 Eosinophils # (Auto) 0.0 10 3/uL 0.0-0.7 [facility] Immature Granulocyte # (Auto) 0.02 10 3/uL 0.00-0.03 [facility] Platelet mean volume Auto (B ld) [Entitic vol]on 09-07-2023 Platelet mean volume (Bld) [Entitic vol] 8.6 fL Low 9.5-13.5 [facility] Platelets Auto (Bld) [#/Vol] on 09-07-2023 Platelets (Bld) [#/Vol] 233 10 3/uL 150-450 [facility] RBC Auto (Bld) [#/Vol]on RBC (Bld) [#/Vol] 4.30 10 6/uL 4.20-5.40 [facility] Serum or plasma albumin/glob ulin mass ratioon 09-07-2023 Albumin/Globulin [Mass ratio] 1.0 {ratio} [facility] Serum or plasma anion gap de terminationon 09-07-2023 Anion gap [Moles/Vol] 6.5 mmol/L [facility] Basophils Auto (Bld) [#/Vol] on 08-19-2023 Basophils (Bld) [#/Vol] 0.1 10 3/uL 0.0-0.1 [facility] Basophils/100 WBC Auto (Bld) on 08-19-2023 Basophils/100 WBC (Bld) 1.3 % 0.2-2.0 [facility] Eosinophils/100 WBC Auto (Bl d)on 08-19-2023 Eosinophils/100 WBC (Bld) 0.0 % Low 0.9-7.0 [facility] Erythrocyte distribution wid th Auto (RBC) [Ratio]on 08-19-2023 Erythrocyte distribution width (RBC) [Ratio] 12.1 % 11.0-15.0 [facility] Estimated glomerular filtrat ion rate (GFR) non- Americanon 08-19-2023 GFR/1.73 sq M.predicted among non-blacks MDRD (S/P/Bld) [Vol rate/Area] mL/min/{1.73_m2} >=60 [facility] Hematocrit Auto (Bld) [Volum e fraction]on 08-19-2023 Hematocrit (Bld) [Volume fraction] 40.6 % 36.0-48.0 [facility] Hemoglobin [Mass/volume] in Bloodon 08-19-2023 Hemoglobin (Bld) [Mass/Vol] 13.8 g/dL 12.0-16.0 [facility] Laboratory - Chemistry and C hemistry - challengeon 08-19-2023 Calcium [Mass/Vol] 8.8 mg/dL 8.5-10.1 [facility] Chloride [Moles/Vol] 96 mmol/L Low 98-107 [facility] CO2 [Moles/Vol] 30.6 mmol/L 21.0-32.0 [facility] Creatinine [Mass/Vol] 0.89 mg/dL 0.55-1.02 [facility] Free T4 [Mass/Vol] 0.87 ng/dL 0.76-1.46 [facility] GFR/1.73 sq M.predicted MDRD (S/P/Bld) [Vol rate/Area] mL/min/{1.73_m2} >=60 [facility] Glucose [Mass/Vol] 116 mg/dL High 74-106 [facility] Natriuretic peptide B (Bld) [Mass/Vol] 490.0 pg/mL <=900.0 [facility] Potassium [Moles/Vol] 4.4 mmol/L 3.5-5.1 [facility] Sodium [Moles/Vol] 133 mmol/L Low 136-145 [facility] TSH Qn 4.910 m[IU]/L High 0.358-3.740 [facility] Urea nitrogen [Mass/Vol] 20.0 mg/dL High 7.0-18.0 [facility] Urea nitrogen/Creatinine [Mass ratio] 22.5 mg/mg [facility] Bilirubin Ql (U) Negative NEGATIVE [facility] Glucose (U) [Mass/Vol] Negative NEGATIVE [facility] Ketones Ql (U) Negative NEGATIVE [facility] pH (U) 7.0 [pH] 5.0-9.0 [facility] Specific gravity (U) [Rel density] 1.010 1.005-1.025 [facility] Urobilinogen Qn (U) 0.2 {Lenny'U}/dL 0.2-1.0 [facility] Laboratory - Hematology and Cell countson 08-19-2023 Immature granulocytes/100 WBC (Bld) 0.5 % 0.0-0.5 [facility] Laboratory - Specimen inform ationon 08-19-2023 Appearance (U) CLEAR CLEAR [facility] Color (U) LT. YELLOW YELLOW [facility] Laboratory - Urinalysison Leukocyte esterase Test strip Ql (U) Negative NEGATIVE [facility] Nitrite Ql (U) Negative NEGATIVE [facility] Protein Ql (U) Negative NEG/TRACE [facility] Leukocytes [#/volume] correc chantelle for nucleated erythrocytes in Blood by Automated counon 08-19-2023 WBC corrected for nucl RBC Auto (Bld) [#/Vol] 7.5 10 3/uL 4.0-11.0 [facility] Lymphocytes Auto (Bld) [#/Vo l]on 08-19-2023 Lymphocytes (Bld) [#/Vol] 1.6 10 3/uL 1.2-3.8 [facility] Lymphocytes/100 WBC Auto (Bl d)on 08-19-2023 Lymphocytes/100 WBC (Bld) 21.2 % 20.5-60.0 [facility] MCH Auto (RBC) [Entitic mass ]on 08-19-2023 MCH (RBC) [Entitic mass] 31.0 pg 26.7-34.0 [facility] MCHC Auto (RBC) [Mass/Vol]on 08-19-2023 MCHC (RBC) [Mass/Vol] 34.0 g/dL 29.9-35.2 [facility] MCV Auto (RBC) [Entitic vol] on 08-19-2023 MCV (RBC) [Entitic vol] 91.2 fL 81.0-99.0 [facility] Monocytes Auto (Bld) [#/Vol] on 08-19-2023 Monocytes (Bld) [#/Vol] 0.5 10 3/uL 0.3-0.8 [facility] Monocytes/100 WBC Auto (Bld) on 08-19-2023 Monocytes/100 WBC (Bld) 6.4 % 1.7-12.0 [facility] Neutrophils Auto (Bld) [#/Vo l]on 08-19-2023 Neutrophils (Bld) [#/Vol] 5.3 10 3/uL 1.4-6.5 [facility] Neutrophils/100 WBC Auto (Bl d)on 08-19-2023 Neutrophils/100 WBC (Bld) 70.6 % 43.0-75.0 [facility] No Panel Informationon 08-18 Eosinophils # (Auto) 0.0 10 3/uL 0.0-0.7 [facility] Immature Granulocyte # (Auto) 0.04 10 3/uL High 0.00-0.03 [facility] Urine Occult Blood TRACE-L NEGATIVE [facility] Platelet mean volume Auto (B ld) [Entitic vol]on 08-19-2023 Platelet mean volume (Bld) [Entitic vol] 9.0 fL Low 9.5-13.5 [facility] Platelets Auto (Bld) [#/Vol] on 08-19-2023 Platelets (Bld) [#/Vol] 259 10 3/uL 150-450 [facility] RBC Auto (Bld) [#/Vol]on RBC (Bld) [#/Vol] 4.45 10 6/uL 4.20-5.40 [facility] Serum or plasma anion gap de terminationon 08-19-2023 Anion gap [Moles/Vol] 10.8 mmol/L [facility] Alanine aminotransferase [En zymatic activity/volume] in Serum or PlasmaOrdered By: Pam Wagoner on 07-08-2023 ALT [Catalytic activity/Vol] 13 U/L Normal 7-52 [facility] Comment on above: Performed By: #### V ITD+D2+D3, THYROID PROF II #### [facility] , #### CMP, CBC #### [facility] [address] [place] [address] Albumin [Mass/volume] in Ser um or Plasma by Bromocresol green (BCG) dye binding methoOrdered By: Pam Wagoner on 07-08-2023 Albumin BCG dye [Mass/Vol] 4.7 g/dL 3.5-5.7 [facility] Alkaline phosphatase [Enzyma tic activity/volume] in Serum or PlasmaOrdered By: Pam Wagoner on 07-08-2023 ALP [Catalytic activity/Vol] 72 U/L Normal 34-104 [facility] Comment on above: Result Comment: PERF ORMED BY: [place] [address] PATHOLOGIST KOSHER INSPECTOR HARVINDER GAGE M.D. Performed By: #### V ITD+D2+D3, THYROID PROF II #### [facility] , #### CMP, CBC #### [facility] [address] [place] [address] Aspartate aminotransferase [ Enzymatic activity/volume] in Serum or PlasmaOrdered By: Pam Wagoner on 07-08-2023 AST [Catalytic activity/Vol] 18 U/L Normal 13-39 [facility] Comment on above: Performed By: #### V ITD+D2+D3, THYROID PROF II #### [facility] , #### CMP, CBC #### [facility] [address] [place] [address] Automated basophil %Ordered By: Pam Wagoner on 07-08-2023 Basophils/100 WBC (Bld) 1.2 % Normal . [facility] Comment on above: Performed By: #### V ITD+D2+D3, THYROID PROF II #### [facility] , #### CMP, CBC #### [facility] [address] [place] [address] Automated basophil countOrde red By: Pam Wagoner on 07-08-2023 Basophils (Bld) [#/Vol] 0.1 10*3/uL Normal 0.0-0.2 [facility] Comment on above: Result Comment: PERF ORMED BY: [place] [address] PATHOLOGIST KOSHER INSPECTOR HARVINDER GAGE M.D. Performed By: #### V ITD+D2+D3, THYROID PROF II #### [facility] , #### CMP, CBC #### [address] Automated blood monocyte cou ntOrdered By: Pam Wagoner on 07-08-2023 Monocytes (Bld) [#/Vol] 0.5 10*3/uL Normal 0.0-0.8 [facility] Comment on above: Performed By: #### V ITD+D2+D3, THYROID PROF II #### [facility] , #### CMP, CBC #### [address] Automated eosinophil %Ordere d By: Pam Wagoner on 07-08-2023 Eosinophils/100 WBC (Bld) 0.0 % Normal . [facility] Comment on above: Performed By: #### V ITD+D2+D3, THYROID PROF II #### [facility] , #### CMP, CBC #### [address] Automated eosinophil countOr dered By: Pam Wagoner on 07-08-2023 Eosinophils (Bld) [#/Vol] 0.0 10*3/uL Normal 0.0-0.45 [facility] Comment on above: Performed By: #### V ITD+D2+D3, THYROID PROF II #### [facility] , #### CMP, CBC #### [address] Automated monocyte %Ordered By: Pam Wagoner on 07-08-2023 Monocytes/100 WBC (Bld) 7.8 % Normal . [facility] Comment on above: Performed By: #### V ITD+D2+D3, THYROID PROF II #### [facility] , #### CMP, CBC #### [address] Automated neutrophil %Ordere d By: Pam Wagoner on 07-08-2023 Neutrophils/100 WBC (Bld) 65.2 % Normal . [facility] Comment on above: Performed By: #### V ITD+D2+D3, THYROID PROF II #### [facility] , #### CMP, CBC #### [facility] [address] [place] [address] Bilirubin.total [Mass/volume ] in Serum or PlasmaOrdered By: Pam Wagoner on 07-08-2023 Bilirubin [Mass/Vol] 0.3 mg/dL Normal 0.3-1.0 [facility] Comment on above: Performed By: #### V ITD+D2+D3, THYROID PROF II #### [facility] , #### CMP, CBC #### [address] Calcium [Mass/volume] in Ser um or PlasmaOrdered By: Pam Wagoner on 07-08-2023 Calcium [Mass/Vol] 9.9 mg/dL Normal 8.6-10.3 [facility] Comment on above: Performed By: #### V ITD+D2+D3, THYROID PROF II #### [facility] , #### CMP, CBC #### [facility] [address] [place] [address] Carbon dioxide, total [Moles /volume] in Serum or PlasmaOrdered By: Pam Wagoner on 07-08-2023 CO2 [Moles/Vol] 31.5 mmol/L High 21.0-31.0 [facility] Comment on above: Performed By: #### V ITD+D2+D3, THYROID PROF II #### [facility] , #### CMP, CBC #### [facility] [address] [place] [address] [place] Chloride [Moles/volume] in S davi or PlasmaOrdered By: Pam Wagoner on 07-08-2023 Chloride [Moles/Vol] 100 mmol/L Normal 98-107 [facility] Comment on above: Performed By: #### V ITD+D2+D3, THYROID PROF II #### [facility] , #### CMP, CBC #### [address] Complete Blood Count Auto Di ffon 07-08-2023 Mean Corpuscular HGB Conc 34.0 g/dL Normal 32.0-35.0 [facility] Comment on above: Performed By: #### V ITD+D2+D3, THYROID PROF II #### [facility] , #### CMP, CBC #### [facility] [address] [place] [address] NRBC% 0.1 /100{WBC} Normal 0-0.5 [facility] Comment on above: Performed By: #### V ITD+D2+D3, THYROID PROF II #### [facility] , #### CMP, CBC #### [address] Comprehensive Metabolic Pane kirit 07-08-2023 Albumin [Mass/Vol] 4.7 g/dL Normal 3.5-5.7 [facility] Comment on above: Performed By: #### V ITD+D2+D3, THYROID PROF II #### [facility] , #### CMP, CBC #### [facility] [address] [place] [address] [place] GFR/1.73 sq M.predicted MDRD (S/P/Bld) [Vol rate/Area] mL/min/{1.73_m2} Normal [facility] Comment on above: Performed By: #### V ITD+D2+D3, THYROID PROF II #### [facility] , #### CMP, CBC #### [facility] [address] [place] [address] [place] Creatinine [Mass/volume] in Serum or PlasmaOrdered By: Pam Wagoner on 07-08-2023 Creatinine [Mass/Vol] 0.96 mg/dL Normal 0.60-1.20 [facility] Comment on above: Performed By: #### V ITD+D2+D3, THYROID PROF II #### [facility] , #### CMP, CBC #### [facility] [address] Erythrocyte distribution wid th [Ratio] by Automated countOrdered By: Pam Wagoner on 07-08-2023 Erythrocyte distribution width (RBC) [Ratio] 12.9 % Normal 11.9-15.3 [facility] Comment on above: Performed By: #### V ITD+D2+D3, THYROID PROF II #### [facility] , #### CMP, CBC #### [facility] [address] Erythrocytes [#/volume] in B lood by Automated countOrdered By: Pam Wagoner on 07-08-2023 RBC (Bld) [#/Vol] 4.72 10*6/uL Normal 3.60-5.00 [facility] Comment on above: Performed By: #### V ITD+D2+D3, THYROID PROF II #### [facility] , #### CMP, CBC #### [facility] [address] [place] [address] Free thyroxine indexOrdered By: Pam Wagoner on 07-08-2023 Free T4 index Calc [Mass/Vol] 1.8 1.2-4.9 [facility] Glucose [Mass/volume] in Ser um or PlasmaOrdered By: Pam Wagoner on 07-08-2023 Glucose [Mass/Vol] 109 mg/dL High 70-100 [facility] Comment on above: ADA recommended refe rence rangeRandom Glucose Reference Range is dependent on time and content of last meal. Glucose of more than 200 mg/dL in a nonstressed, ambulatory subject supports the diagnosis of Diabetes Mellitus. Result Comment: [place] om Glucose Reference Range is dependent on time and content of last meal. Glucose of more than 200 mg/dL in a nonstressed, ambulatory subject supports the diagnosis of Diabetes Mellitus. ADA recommended reference range Performed By: #### V ITD+D2+D3, THYROID PROF II #### [facility] , #### CMP, CBC #### [address] Hematocrit [Volume Fraction] of Blood by Automated countOrdered By: Pam Wagoner on 07-08-2023 Hematocrit (Bld) [Volume fraction] 43.4 % Normal 34.0-46.4 [facility] Comment on above: Performed By: #### V ITD+D2+D3, THYROID PROF II #### [facility] , #### CMP, CBC #### [address] Hemoglobin [Mass/volume] in BloodOrdered By: Pam Wagoner on 07-08-2023 Hemoglobin (Bld) [Mass/Vol] 14.7 g/dL Normal 11.8-15.4 [facility] Comment on above: Performed By: #### V ITD+D2+D3, THYROID PROF II #### [facility] , #### CMP, CBC #### [address] Leukocytes [#/volume] correc chantelle for nucleated erythrocytes in Blood by Automated counOrdered By: Pam Wagoner on 07-08-2023 WBC corrected for nucl RBC Auto (Bld) [#/Vol] 6.7 10*3/uL 3.8-11.6 [facility] Leukocytes [#/volume] in Blo od by Automated countOrdered By: Pam Wagoner on 07-08-2023 WBC (Bld) [#/Vol] 6.7 10*3/uL Normal 3.8-11.6 [facility] Comment on above: Performed By: #### V ITD+D2+D3, THYROID PROF II #### [facility] , #### CMP, CBC #### [facility] [address] [place] [address] [place] Lymphocytes [#/volume] in Bl ood by Automated countOrdered By: Pam Wagoner on 07-08-2023 Lymphocytes (Bld) [#/Vol] 1.7 10*3/uL Normal 1.00-4.8 [facility] Comment on above: Performed By: #### V ITD+D2+D3, THYROID PROF II #### [facility] , #### CMP, CBC #### [address] Lymphocytes/100 leukocytes i n Blood by Automated countOrdered By: Pam Wagoner on 07-08-2023 Lymphocytes/100 WBC (Bld) 25.8 % Normal . [facility] Comment on above: Performed By: #### V ITD+D2+D3, THYROID PROF II #### [facility] , #### CMP, CBC #### [address] MCH [Entitic mass] by Automa chantelle countOrdered By: Pam Wagoner on 07-08-2023 MCH (RBC) [Entitic mass] 31.2 pg Normal 24.7-34.3 [facility] Comment on above: Performed By: #### V ITD+D2+D3, THYROID PROF II #### [facility] , #### CMP, CBC #### [address] MCHC Auto (RBC) [Mass/Vol]Or dered By: Pam Wagoner on 07-08-2023 MCHC (RBC) [Mass/Vol] 34.0 g/dL 32.0-35.0 [facility] MCV [Entitic volume] by Auto mated countOrdered By: Pam Wagoner on 07-08-2023 MCV (RBC) [Entitic vol] 92.0 fL Normal 80-100 [facility] Comment on above: Performed By: #### V ITD+D2+D3, THYROID PROF II #### [facility] , #### CMP, CBC #### [place] [address] [place] Neutrophils [#/volume] in Bl ood by Automated countOrdered By: Pam Wagoner on 07-08-2023 Neutrophils (Bld) [#/Vol] 4.3 10*3/uL Normal 1.8-7.7 [facility] Comment on above: Performed By: #### V ITD+D2+D3, THYROID PROF II #### [facility] , #### CMP, CBC #### [facility] [address] [place] [address] No Panel InformationOrdered By: Pam Wagoner on 07-08-2023 Estimated GFR (CKD-EPI) > 60.0 mL/Min [facility] Free Thyroxine (T4) Direct 7.5 ug/dL 4.5-12.0 [facility] Creatinine Clearance (Chem N/A [facility] Nucleated erythrocytes [Pres ence] in Blood by Automated countOrdered By: Pam Wagoner on 07-08-2023 Nucleated RBC Auto Ql (Bld) 0.1 /100{WBC} 0-0.5 [facility] Platelet mean volume [Entiti c volume] in Blood by Automated countOrdered By: Pam Wagoner on 07-08-2023 Platelet mean volume (Bld) [Entitic vol] 7.8 fL Normal 6.3-10.7 [facility] Comment on above: Performed By: #### V ITD+D2+D3, THYROID PROF II #### [facility] , #### CMP, CBC #### [facility] [address] [place] [address] [place] Platelets [#/volume] in Bloo d by Automated countOrdered By: Pam Wagoner on 07-08-2023 Platelets (Bld) [#/Vol] 278 10*3/uL Normal 150-450 [facility] Comment on above: Performed By: #### V ITD+D2+D3, THYROID PROF II #### [facility] , #### CMP, CBC #### [facility] [address] [place] [address] [place] Potassium [Moles/volume] in Serum or PlasmaOrdered By: Pam Wagoner on 07-08-2023 Potassium [Moles/Vol] 4.7 mmol/L Normal 3.5-5.1 [facility] Comment on above: Performed By: #### V ITD+D2+D3, THYROID PROF II #### [facility] , #### CMP, CBC #### [facility] [address] Protein [Mass/volume] in Ser um or PlasmaOrdered By: Pam Wagoner on 07-08-2023 Protein [Mass/Vol] 7.5 g/dL Normal 6.4-8.9 [facility] Comment on above: Performed By: #### V ITD+D2+D3, THYROID PROF II #### [facility] , #### CMP, CBC #### [facility] [address] Serum globulin measurement b y calculation (mass/volume)Ordered By: Pam Wagoner on 07-08-2023 Globulin (S) [Mass/Vol] 2.8 g/dL [facility] Comment on above: Performed By: #### V ITD+D2+D3, THYROID PROF II #### [facility] , #### CMP, CBC #### [facility] [address] [place] [address] Serum or plasma 25-hydroxyca lciferol measurement (mass/volume)Ordered By: Pam Wagoner on 07-08-2023 25-hydroxyvitamin D2 [Mass/Vol] <1.0 ng/mL . [facility] Comment on above: This test was develo ped and its performance characteristicsdetermined by [facility]. It has not been cleared or approvedby the Food and Drug Administration. Serum or plasma 25-hydroxyvi tamin D measurement (mass/volume)Ordered By: Pam Wagoner on 07-08-2023 25-hydroxyvitamin D [Mass/Vol] 6.8 ng/mL . [facility] Comment on above: Reference Range:All Ages: Target levels 30 - 100 Serum or plasma albumin/glob ulin mass ratioOrdered By: Pam Wagoner on 07-08-2023 Albumin/Globulin [Mass ratio] 1.7 {ratio} [facility] Comment on above: Performed By: #### V ITD+D2+D3, THYROID PROF II #### [facility] , #### CMP, CBC #### [facility] [address] [place] [address] Serum or plasma anion gap de terminationOrdered By: Pam Wagoner on 07-08-2023 Anion gap [Moles/Vol] 9.2 mmol/L Normal 6.0-15.0 [facility] Comment on above: Performed By: #### V ITD+D2+D3, THYROID PROF II #### [facility] , #### CMP, CBC #### [facility] [address] [place] [address] Serum or plasma calcidiol me asurement (mass/volume)Ordered By: Pam Wagoner on 07-08-2023 25-hydroxyvitamin D3 [Mass/Vol] 6.8 ng/mL . [facility] Comment on above: This test was develo ped and its performance characteristicsdetermined by [facility]. It has not been cleared or approvedby the Food and Drug Administration.Performed at: [facility] [address] [id number] Director: Santos Chahal MD, Phone: [phone] Serum or plasma thyroid stim ulating hormone (TSH) measurement by high sensitivity metOrdered By: Pam Wagoner on 07-08-2023 TSH Qn 5.980 m[IU]/L High 0.450-4.500 [facility] Comment on above: Result Comment: PERF ORMED BY: [place] [address] PATHOLOGIST KOSHER INSPECTOR HARVINDER GAGE M.D. Performed By: #### V ITD+D2+D3, THYROID PROF II #### [facility] , #### CMP, CBC #### [facility] [address] [place] [address] Sodium [Moles/volume] in Ser um or PlasmaOrdered By: Pam Wagoner on 07-08-2023 Sodium [Moles/Vol] 136 mmol/L Normal 136-145 [facility] Comment on above: Performed By: #### V ITD+D2+D3, THYROID PROF II #### [facility] , #### CMP, CBC #### [facility] [address] [place] [address] T3 uptakeOrdered By: Pam Wagoner on 07-08-2023 T3RU 24 % 24-39 [facility] Thyroid Profile IIon 024 Free Thyroxine Index 1.8 Normal 1.2-4.9 [facility] Comment on above: Performed By: #### V ITD+D2+D3, THYROID PROF II #### [facility] , #### CMP, CBC #### [address] Lab [facility] Triiodothyronine,(T3) 124 ng/dL Normal 71-180 [facility] Comment on above: Result Comment: Perf ormed at: - [facility] [address] [id number] [employer] Director: Spencer Martinez PhD, Phone: [phone] Performed By: #### V ITD+D2+D3, THYROID PROF II #### [facility] , #### CMP, CBC #### [facility] [address] [place] [address] T4 [Mass/Vol] 7.5 ug/dL Normal 4.5-12.0 [facility] Comment on above: Performed By: #### V ITD+D2+D3, THYROID PROF II #### [facility] , #### CMP, CBC #### [facility] [address] [place] [address] Triiodothryronine (T3) Uptake 24 % Normal 24-39 [facility] Comment on above: Performed By: #### V ITD+D2+D3, THYROID PROF II #### [facility] , #### CMP, CBC #### [facility] [address] [place] [address] [place] Triiodothyronine (T3) [Mass/ volume] in Serum or PlasmaOrdered By: Pam Wagoner on 07-08-2023 T3 [Mass/Vol] 124 ng/dL 71-180 [facility] Comment on above: Performed at: [facility] [id number] [place], [place] [id number] Director: Spencer Martinez PhD, Phone: [phone] Urea nitrogen [Mass/volume] in Serum or PlasmaOrdered By: Pam Wagoner on 07-08-2023 Urea nitrogen [Mass/Vol] 26 mg/dL High 7-25 [facility] Comment on above: Performed By: #### V ITD+D2+D3, THYROID PROF II #### [facility] , #### CMP, CBC #### [place] [address] [place] Vitamin D 25 Hydroxy,Tot+D2+ D3on 07-08-2023 Lab [facility] Vitamin D 25 [place] 6.8 ng/mL Low . [facility] Comment on above: Result Comment: Refe rence Range: All Ages: Target levels 30 - 100 Performed By: #### V ITD+D2+D3, THYROID PROF II #### [facility] , #### CMP, CBC #### [address] Vitamin D-2 <1.0 Normal . [facility] Comment on above: Result Comment: This test was developed and its performance characteristics determined by [facility]. It has not been cleared or approved by the Food and Drug Administration. Performed By: #### V ITD+D2+D3, THYROID PROF II #### [facility] , #### CMP, CBC #### [facility] [address] [place] [address] Vitamin D-3 6.8 ng/mL Normal . [facility] Comment on above: Result Comment: This test was developed and its performance characteristics determined by [facility]. It has not been cleared or approved by the Food and Drug Administration. Performed at: [employer] [address] [place], [place] [id number] [employer] Director: Santos Chahal MD, Phone: [phone] PERFORMED BY: [place] [address] PATHOLOGIST KOSHER INSPECTOR HARVINDER GAGE M.D. Performed By: #### V ITD+D2+D3, THYROID PROF II #### [facility] , #### CMP, CBC #### [facility] [address] [place] [id number] [facility] Progress Note - Nutritionon 06-04-2023 Progress Note - Nutrition Pt is here today for an initial DM MNT appt. Pt has had diabetes for two years. 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 Referral of Care: [...] f/u fo (more content not included)... Normal [facility] BD Bone Density DEXAon 05-29 BD Bone [...] MD, V. Transcribed by: EUSEBIA Technologist: SENIA [facility] Consent for Treatmenton Consent for Treatment [id number]#1.00TIFF [facility] Consent for Treatment [id number]#1.00TIFF [facility] Physician Orderon 05-20-2023 Physician Order [id number]#1.00TIFF [facility] Physician Referralon 024 Physician Referral [id number]#1.00TIFF [facility] community outreach lela negron 02-28-2023 community outreach [facility] [place] [address] Ultrasound Report Signed Patient: Ruma Carlton MR#: [id number] : 1960 Acct:[id number] Age/Sex: 62 / F ADM Date: 02/25/23 Loc: Room: Type: DEP REF Attending Dr: Colin Soto Ordering Provider: COLIN SOTO Date of Service: 02/25/23 /[facility] carotid: SCRE[facility]ING [facility] CAROTID DUPLEX INDICATION: Community Health screening program. PROCEDURE: Color-flow duplex scanning is [...] the common carotid artery is 1.4 . /[facility] carotid IMPRESSION: NO HEMODYNAMICALLY SIGNIFICANT STENOSIS OF EITHER EXTRACRANIAL INTERNAL CAROTID ARTERY. BOTH VERTEBRAL ARTERIES ARE PATENT WITH ANTEGRADE FLOW. Impression dictated by: Carmelita Holman MD02/28/2023 10:51 AM Dictation Location: [place] [address] Tech: Ruby Hutchison Transcribed By: CHRISTIAN 02/28/23 1051 Dictated By: Carmelita Holman MD 02/28/23 1050 Signed By: 02/28/23 1051 Normal [facility] Basic Metabolic Panelon 10-0 Creatinine Clr Calc Pharmacy 103.69 Normal [facility] Comment on above: Result Comment: PERF ORMED BY: [place] [address] PATHOLOGIST KOSHER INSPECTOR HARVINDER GAGE M.D. Performed By: #### B MP #### [place] [address] [place] GFR/1.73 sq M.predicted MDRD (S/P/Bld) [Vol rate/Area] mL/min/{1.73_m2} Normal [facility] Comment on above: Performed By: #### B MP #### [place] [address] [place] Calcium [Mass/volume] in Ser um or PlasmaOrdered By: Froilan Brown on 12-24-2022 Calcium [Mass/Vol] 8.8 mg/dL Normal 8.6-10.3 [facility] Comment on above: Performed By: #### B MP #### [place] [address] [place] Carbon dioxide, total [Moles /volume] in Serum or PlasmaOrdered By: Froilan Brown on 12-24-2022 CO2 [Moles/Vol] 25.8 mmol/L Normal 21.0-31.0 [facility] Comment on above: Performed By: #### B MP #### [place] [address] [place] Chloride [Moles/volume] in S davi or PlasmaOrdered By: Froilan Brown on 12-24-2022 Chloride [Moles/Vol] 104 mmol/L Normal 98-107 [facility] Comment on above: Performed By: #### B MP #### [place] [address] [place] Creatinine [Mass/volume] in Serum or PlasmaOrdered By: Froilan Brown on 12-24-2022 Creatinine [Mass/Vol] 0.61 mg/dL Normal 0.60-1.20 [facility] Comment on above: Performed By: #### B #### [address] ECG 12 lead ECGon 12-24-2022 ECG 12 lead ECG [facility] [place] [address] Electrocardiograph Report Signed Patient: Ruma Carlton MR#: [id number] : 1960 Acct:[id number] Age/Sex: 62 / F ADM Date: 12/24/22 Loc: Room: [address] [place] [address] Type: DIS INOo Attending Dr: Petr Kowalski [...] longer evident in Lateral leads Confirmed by CR [facility] Hall ([id number]) on 12/25/2022 10:57:22 AM Referred By: Electronically Signed By:REGINA MOLINA MD [facility] Transcribed By: MUS Signed By Sukhi Molina MD 12/25/22 1057 Normal [facility] ECG 12 lead ECG [facility] [place] [address] Electrocardiograph Report Signed Patient: Ruma Carlton MR#: [id number] : 1960 Acct:[id number] Age/Sex: 62 / F ADM Date: 12/24/22 Loc: Room: [address] [place] [address] Type: DIS INOo Attending Dr: Petr [place] [...] is now present Confirmed by CR [facility] ([id number] on 12/25/2022 10:57:18 AM Referred By: Electronically Signed By:REGINA MOLINA MD, FACC Transcribed By: MUS Signed By Sukhi Molina MD 12/25/22 1057 Normal [facility] Glucose [Mass/volume] in Ser um or PlasmaOrdered By: Froilan Brown on 12-24-2022 Glucose [Mass/Vol] 113 mg/dL High 70-100 [facility] Comment on above: ADA recommended refe rence rangeRandom Glucose Reference Range is dependent on time and content of last meal. Glucose of more than 200 mg/dL in a nonstressed, ambulatory subject supports the diagnosis of Diabetes Mellitus. Result Comment: [place] om Glucose Reference Range is dependent on time and content of last meal. Glucose of more than 200 mg/dL in a nonstressed, ambulatory subject supports the diagnosis of Diabetes Mellitus. ADA recommended reference range Performed By: #### B MP #### [address] No Panel InformationOrdered By: Froilan Brown on 12-24-2022 Estimated GFR (CKD-EPI) > 60.0 mL/Min [facility] Creatinine Clearance (Chem 103.69 [facility] Potassium [Moles/volume] in Serum or PlasmaOrdered By: Froilan Brown on 12-24-2022 Potassium [Moles/Vol] 4.3 mmol/L Normal 3.5-5.1 [facility] Comment on above: Performed By: #### B MP #### [address] Serum or plasma anion gap de terminationOrdered By: Froilan Brown on 12-24-2022 Anion gap [Moles/Vol] 9.5 mmol/L Normal 6.0-15.0 [facility] Comment on above: Performed By: #### B MP #### [address] Sodium [Moles/volume] in Ser um or PlasmaOrdered By: Froilan Brown on 12-24-2022 Sodium [Moles/Vol] 135 mmol/L Low 136-145 [facility] Comment on above: Performed By: #### B MP #### [address] Troponin I High Sensitivityo n 12-24-2022 Troponin I High Sensitivity 7.7 pg/mL Normal 0.0-15.0 [facility] Comment on above: Result Comment: PERF ORMED BY: [place] [id number] PATHOLOGIST KOSHER INSPECTOR HARVINDER GAGE M.D. Performed By: #### V ITD+D2+D3, THYROID PROF II #### [facility] , #### CMP, CBC #### [address] Troponin I.cardiac [Mass/vol ume] in Serum or Plasma by Detection limit <= 0.01 ng/Ordered By: Froilan Brown on 12-24-2022 Troponin I.cardiac DL <= 0.01 ng/mL [Mass/Vol] 7.7 pg/mL 0.0-15.0 [facility] Urea nitrogen [Mass/volume] in Serum or PlasmaOrdered By: Froilan Brown on 12-24-2022 Urea nitrogen [Mass/Vol] 8 mg/dL Normal 7-25 [facility] Comment on above: Performed By: #### B MP #### [address] CBC AUTO DIFFon 05-27-2022 BASO # 0.1 103/ul Normal 0.0-0.1 [facility] Comment on above: Performed By: #### C BC #### [facility] [address] [place] [address] Dr. Domi Saleem Basophils/100 WBC (Bld) 1.2 % Normal 0.2-2.0 [facility] Comment on above: Performed By: #### C BC #### [facility] [address] [place] [address] Dr. Domi aSleem EO # 0.3 103/ul Normal 0.0-0.7 [facility] Comment on above: Performed By: #### C BC #### [facility] [address] [place] [address] Dr. Domi Saleem Eosinophils/100 WBC (Bld) 3.8 % Normal 0.9-7.0 [facility] Comment on above: Performed By: #### C BC #### [facility] [address] [place] [address] Dr. Domi Saleem Erythrocyte distribution width (RBC) [Ratio] 12.5 % Normal 11.0-15.0 [facility] Comment on above: Performed By: #### C BC #### [facility] [address] [place] [address] Dr. Domi Saleem Hematocrit (Bld) [Volume fraction] 42.5 % Normal 36.0-48.0 [facility] Comment on above: Performed By: #### C BC #### [facility] [address] [place] [address] Dr. Domi Saleem Hemoglobin (Bld) [Mass/Vol] 14.6 g/dL Normal 12.0-16.0 [facility] Comment on above: Performed By: #### C BC #### [facility] [address] [place] [address] Dr. Domi Saleem IG # 0.04 10e3/ul Critically high 0.00-0.03 [facility] Comment on above: Performed By: #### C BC #### [facility] [address] [place] [address] Dr. Domi Saleem IG % 0.6 % Critically high 0.0-0.5 [facility] Comment on above: Performed By: #### C BC #### [facility] [address] [place] [address] Dr. Domi Saleem LYMPH # 1.3 103/ul Normal 1.2-3.8 [facility] Comment on above: Performed By: #### C BC #### [facility] [address] [place] [address] Dr. Domi Saleem Lymphocytes/100 WBC (Bld) 18.5 % Critically low 20.5-60.0 [facility] Comment on above: Performed By: #### C BC #### [facility] [address] [place] [address] Dr. Domi Saleem MANUAL DIFF REQ NO Normal [facility] Comment on above: Performed By: #### C BC #### [facility] [address] [place] [address] Dr. Domi Saleem MCH (RBC) [Entitic mass] 31.1 pg Normal 26.7-34.0 [facility] Comment on above: Performed By: #### C BC #### [facility] [address] [place] [address] Dr. Domi Saleem MCHC (RBC) [Mass/Vol] 34.4 g/dL Normal 29.9-35.2 [facility] Comment on above: Performed By: #### C BC #### [facility] [address] [place] [address] Dr. Domi Saleem MCV (RBC) [Entitic vol] 90.4 fL Normal 81.0-99.0 [facility] Comment on above: Performed By: #### C BC #### [facility] [address] [place] [address] Dr. Domi Saleem MONO # 0.3 103/ul Normal 0.3-0.8 [facility] Comment on above: Performed By: #### C BC #### [facility] [address] [place] [address] Dr. Domi Saleem Monocytes/100 WBC (Bld) 4.2 % Normal 1.7-12.0 [facility] Comment on above: Performed By: #### C BC #### [facility] [address] [place] [address] Dr. Domi Saleem NEUT # 5.0 103/ul Normal 1.4-6.5 [facility] Comment on above: Performed By: #### C BC #### [facility] [address] [place] [address] Dr. Domi Saleem Neutrophils/100 WBC (Bld) 71.7 % Normal 43.0-75.0 [facility] Comment on above: Performed By: #### C BC #### [facility] [address] [place] [address] Dr. Domi Saleem Platelet mean volume (Bld) [Entitic vol] 8.6 fL Critically low 9.5-13.5 [facility] Comment on above: Performed By: #### C BC #### [facility] [address] [place] [address] Dr. Domi Saleem PLT 265 103/ul Normal 150-450 [facility] Comment on above: Performed By: #### C BC #### [facility] [address] [place] [address] Dr. Domi Saleem RBC 4.70 106/ul Normal 4.20-5.40 [facility] Comment on above: Performed By: #### C BC #### [facility] [address] [place] [address] Dr. Domi Saleem WBC 6.9 103/ul Normal 4.0-11.0 [facility] Comment on above: Performed By: #### C BC #### [facility] [address] [place] [address] Dr. Domi Saleem PROF 14(COMP METB)on 023 Albumin [Mass/Vol] 3.7 g/dL Normal 3.4-5.0 [facility] Comment on above: Performed By: #### C MP #### [facility] [address] [place] [address] Dr. Domi Saleem Albumin/Globulin [Mass ratio] 0.9 {ratio} Normal [facility] Comment on above: Performed By: #### C MP #### [facility] [address] [address] [address] Domi Saleem ALP [Catalytic activity/Vol] 101 U/L Normal 46-116 [facility] Comment on above: Performed By: #### C MP #### [facility] [address] [place] [address] Dr. Domi Saleem ALT [Catalytic activity/Vol] 15 U/L Normal 14-59 [facility] Comment on above: Performed By: #### C MP #### [facility] [address] [address] [address] Domi Saleem Anion gap [Moles/Vol] 11.9 mmol/L Normal [facility] Comment on above: Performed By: #### C MP #### [facility] [address] [place] [address] Dr. Domi Saleem AST [Catalytic activity/Vol] 16 U/L Normal 15-37 [facility] Comment on above: Performed By: #### C MP #### [facility] [address] [place] [address] Dr. Domi Saleem Bilirubin [Mass/Vol] 0.3 mg/dL Normal 0.2-1.0 [facility] Comment on above: Performed By: #### C MP #### [facility] [address] [place] [address] Dr. Domi Saleem Calcium [Mass/Vol] 9.0 mg/dL Normal 8.5-10.1 [facility] Comment on above: Performed By: #### C MP #### [facility] [address] [place] [address] Dr. Domi Saleem Chloride [Moles/Vol] 100 mmol/L Normal 98-107 [facility] Comment on above: Performed By: #### C MP #### [facility] [address] [place] [address] Dr. Domi Saleem CO2 [Moles/Vol] 29.0 mmol/L Normal 21.0-32.0 [facility] Comment on above: Performed By: #### C MP #### [facility] [address] [address] [address] Domi Saleem Creatinine [Mass/Vol] 0.69 mg/dL Normal 0.55-1.02 [facility] Comment on above: Performed By: #### C MP #### [facility] [address] [address] [address] Domi Saleem EGFR-AF MALAYSIAN >60 Normal >=60 [facility] Comment on above: Performed By: #### C MP #### [facility] [address] [place] [address] Dr. Domi Saleem EGFR-NON AF MALAYSIAN >60 Normal >=60 [facility] Comment on above: Performed By: #### C MP #### [facility] [address] [place] [address] Dr. Domi Saleem Globulin (S) [Mass/Vol] 4.2 g/dL Normal [facility] Comment on above: Performed By: #### C MP #### [facility] [address] [place] [address] Dr. Domi Saleem Glucose [Mass/Vol] 124 mg/dL Critically high 74-106 [facility] Comment on above: Performed By: #### C MP #### [facility] [address] [place] [address] Dr. Domi Saleem Potassium [Moles/Vol] 4.9 mmol/L Normal 3.5-5.1 [facility] Comment on above: Performed By: #### C MP #### [facility] [address] [place] [address] Dr. Domi Saleem Protein [Mass/Vol] 7.9 g/dL Normal 6.4-8.2 [facility] Comment on above: Performed By: #### C MP #### [facility] [address] [place] [address] Dr. Domi Saleem Sodium [Moles/Vol] 136 mmol/L Normal 136-145 [facility] Comment on above: Performed By: #### C MP #### [facility] [address] [place] [address] Dr. Domi Saleem Urea nitrogen [Mass/Vol] 9.0 mg/dL Normal 7.0-18.0 [facility] Comment on above: Performed By: #### C MP #### [facility] [address] [address] [address] Domi Saleem Urea nitrogen/Creatinine [Mass ratio] 13.0 mg/mg Normal [facility] Comment on above: Performed By: #### C MP #### [facility] [id number] Domi Saleem [facility] 21 mm/hr Normal <=30 [facility] Comment on above: Performed By: #### S EDR #### [facility] [address] [place] [address] Dr. Domi Saleem CHEMISTRYOrdered By: SYSTEM SYSTEM on 02-11-2022 Anion gap [Moles/Vol] 14 mmol/L Normal 6 - 16 mEq/L [facility] Remisol Calcium [Mass/Vol] 9.2 mg/dL Normal 8.9 - 11. 1 mg/dL [facility] Chloride [Moles/Vol] 92 mmol/L Low 101 - 1 11 mmol/L [facility] CO2 [Moles/Vol] 28 mmol/L Normal 21 - 31 mmol/L [facility] Remisol Creatinine [Mass/Vol] 0.8 mg/dL Normal 0.5 - 1.3 mg/dL [facility] Remisol GFR/1.73 sq M.predicted among blacks MDRD (S/P/Bld) [Vol rate/Area] mL/min/1.73 m2 Normal >=59mL/min/ 1.73 m2 [facility] Chem S GFR/1.73 sq M.predicted among non-blacks MDRD (S/P/Bld) [Vol rate/Area] mL/min/1.73 m2 Normal >=59mL/min/ 1.73 m2 [facility] Chem S Glucose [Mass/Vol] 108 mg/dL Normal 55 - 199 mg/dL [facility] Potassium [Moles/Vol] 4.0 mmol/L Normal 3.5 - 5.3 mmol/L [facility] Sodium [Moles/Vol] 130 mmol/L Low 135 - 145 mmol/L [facility] Urea nitrogen [Mass/Vol] 16 mg/dL Normal 5 - 21 mg/dL [facility] Urea nitrogen/Creatinine [Mass ratio] 20 mg/mg Normal 10 - 20 [facility] HEMATOLOGYOrdered By: John Ellsworth on 02-11-2022 Erythrocyte distribution width (RBC) [Ratio] 13.2 % Normal 10.9 - 14.2 % [facility] Hematocrit (Bld) [Volume fraction] 42.8 % Normal 34.0 - 46.0 % [facility] Hemoglobin (Bld) [Mass/Vol] 15.1 g/dL Normal 12.0 - 16.0 gm/dL [facility] MCH (RBC) [Entitic mass] 31.6 pg [...] 11-19-2021 BASO # 0.1 103/ul Normal 0.0-0.1 [facility] Comment on above: Performed By: #### C BC #### [facility] [address] [place] [address] Dr. Domi Saleem Basophils/100 WBC (Bld) 0.9 % Normal 0.2-2.0 [facility] Comment on above: Performed By: #### C BC #### [facility] [address] [place] [id number] [address] Domi Saleem EO # 0.2 103/ul Normal 0.0-0.7 [facility] Comment on above: Performed By: #### C BC #### [facility] [address] [place] [address] Dr. Domi Saleem Eosinophils/100 WBC (Bld) 2.4 % Normal 0.9-7.0 [facility] Comment on above: Performed By: #### C BC #### [facility] [address] [place] [address] Dr. Domi Saleem Erythrocyte distribution width (RBC) [Ratio] 12.6 % Normal 11.0-15.0 [facility] Comment on above: Performed By: #### C BC #### [facility] [address] [place] [address] Dr. Domi Saleem Hematocrit (Bld) [Volume fraction] 44.4 % Normal 36.0-48.0 [facility] Comment on above: Performed By: #### C BC #### [facility] [address] [place] [address] Dr. Domi Saleem Hemoglobin (Bld) [Mass/Vol] 15.1 g/dL Normal 12.0-16.0 [facility] Comment on above: Performed By: #### C BC #### [facility] [address] [place] [address] Dr. Domi Saleem IG # 0.04 10e3/ul Critically high 0.00-0.03 [facility] Comment on above: Performed By: #### C BC #### [facility] [address] [place] [address] Dr. Domi Saleem IG % 0.5 % Normal 0.0-0.5 [facility] Comment on above: Performed By: #### C BC #### [facility] [address] [place] [address] Dr. Domi Saleem LYMPH # 1.6 103/ul Normal 1.2-3.8 [facility] Comment on above: Performed By: #### C BC #### [facility] [address] [place] [address] Dr. Domi Saleem Lymphocytes/100 WBC (Bld) 19.1 % Critically low 20.5-60.0 [facility] Comment on above: Performed By: #### C BC #### [facility] [address] [place] [address] Dr. Domi Saleem MANUAL DIFF REQ NO Normal [facility] Comment on above: Performed By: #### C BC #### [facility] [address] [place] [address] Dr. Domi Saleem MCH (RBC) [Entitic mass] 31.5 pg Normal 26.7-34.0 [facility] Comment on above: Performed By: #### C BC #### [facility] [address] [place] [address] Dr. Domi Saleem MCHC (RBC) [Mass/Vol] 34.0 g/dL Normal 29.9-35.2 [facility] Comment on above: Performed By: #### C BC #### [facility] [address] [place] [address] Dr. Domi Saleem MCV (RBC) [Entitic vol] 92.5 fL Normal 81.0-99.0 [facility] Comment on above: Performed By: #### C BC #### [facility] [address] [place] [address] Dr. Domi Saleem MONO # 0.5 103/ul Normal 0.3-0.8 [facility] Comment on above: Performed By: #### C BC #### [facility] [address] [place] [address] Dr. Domi Saleem Monocytes/100 WBC (Bld) 6.1 % Normal 1.7-12.0 [facility] Comment on above: Performed By: #### C BC #### [facility] [address] [place] [address] Dr. Domi Saleem NEUT # 5.8 103/ul Normal 1.4-6.5 [facility] Comment on above: Performed By: #### C BC #### [facility] [address] [place] [address] Dr. Domi Saleem Neutrophils/100 WBC (Bld) 71.0 % Normal 43.0-75.0 [facility] Comment on above: Performed By: #### C BC #### [facility] [address] [address] [address] Domi Saleem Platelet mean volume (Bld) [Entitic vol] 8.7 fL Critically low 9.5-13.5 [facility] Comment on above: Performed By: #### C BC #### [facility] [address] [address] [address] Domi Saleem PLT 246 103/ul Normal 150-450 [facility] Comment on above: Performed By: #### C BC #### [facility] [address] [address] [address] Domi Saleem RBC 4.80 106/ul Normal 4.20-5.40 [facility] Comment on above: Performed By: #### C BC #### [facility] [address] [place] [address] Dr. Domi Saleem WBC 8.2 103/ul Normal 4.0-11.0 [facility] Comment on above: Performed By: #### C BC #### [facility] [address] [place] [address] Dr. Domi Saleem GLYCOHEMOGLOBIN A1Con 2021 ADA RECOMMENDATION SEE BELOW Normal [facility] Comment on above: Result Comment: ADA RECOMMENDED LIMIT 4.0 - 6.0 ADA THERAPEUTIC TARGET < 7.0 ACTION SUGGESTED > 7.0 Performed By: #### A 1C #### [facility] [address] [place] [address] Dr. Domi Saleem Glucose [Mass/Vol] 117 mg/dL Normal [facility] Comment on above: Performed By: #### A 1C #### [facility] [address] [place] [address] Dr. Domi Saleem HbA1c (Bld) [Mass fraction] 5.7 % Normal 4.5-6.2 [facility] Comment on above: Performed By: #### A 1C #### [facility] [address] [place] [address] Dr. Domi Saleem PROF 14(COMP METB)on 022 Albumin [Mass/Vol] 4.0 g/dL Normal 3.4-5.0 [facility] Comment on above: Performed By: #### C MP #### [facility] [address] [place] [address] Dr. Domi Saleem Albumin/Globulin [Mass ratio] 1.1 {ratio} Normal [facility] Comment on above: Performed By: #### C MP #### [facility] [address] [place] [address] Dr. Domi Saleem ALP [Catalytic activity/Vol] 91 U/L Normal 46-116 [facility] Comment on above: Performed By: #### C MP #### [facility] [address] [place] [address] Dr. Domi Saleem ALT [Catalytic activity/Vol] 16 U/L Normal 14-59 [facility] Comment on above: Performed By: #### C MP #### [facility] [address] [place] [address] Dr. Domi Saleem Anion gap [Moles/Vol] 10.3 mmol/L Normal [facility] Comment on above: Performed By: #### C MP #### [facility] [address] [place] [address] Dr. Domi Saleem AST [Catalytic activity/Vol] 24 U/L Normal 15-37 [facility] Comment on above: Performed By: #### C MP #### [facility] [address] [place] [address] Dr. Domi Saleem Bilirubin [Mass/Vol] 0.5 mg/dL Normal 0.2-1.0 [facility] Comment on above: Performed By: #### C MP #### [facility] [address] [place] [address] Dr. Domi Saleem Calcium [Mass/Vol] 9.1 mg/dL Normal 8.5-10.1 [facility] Comment on above: Performed By: #### C MP #### [facility] [address] [place] [address] Dr. Domi Saleem Chloride [Moles/Vol] 95 mmol/L Critically low 98-107 [facility] Comment on above: Performed By: #### C MP #### [facility] [address] [address] [address] Domi Saleem CO2 [Moles/Vol] 27.4 mmol/L Normal 21.0-32.0 [facility] Comment on above: Performed By: #### C MP #### [facility] [address] [address] [address] Domi Saleem Creatinine [Mass/Vol] 0.77 mg/dL Normal 0.55-1.02 [facility] Comment on above: Performed By: #### C MP #### [facility] [address] [address] [address] Domi Saleem EGFR-AF MALAYSIAN >60 Normal >=60 [facility] Comment on above: Performed By: #### C MP #### [facility] [address] [place] [address] Dr. Domi Saleem EGFR-NON AF MALAYSIAN >60 Normal >=60 [facility] Comment on above: Performed By: #### C MP #### [facility] [address] [address] [address] Domi Saleem Globulin (S) [Mass/Vol] 3.8 g/dL Normal [facility] Comment on above: Performed By: #### C MP #### [facility] [address] [address] [address] Domi Saleem Glucose [Mass/Vol] 141 mg/dL Critically high 74-106 [facility] Comment on above: Performed By: #### C MP #### [facility] [address] [address] [address] Domi Saleem Potassium [Moles/Vol] 4.7 mmol/L Normal 3.5-5.1 [facility] Comment on above: Performed By: #### C MP #### [facility] [address] [place] [address] Dr. Domi Saleem Protein [Mass/Vol] 7.8 g/dL Normal 6.4-8.2 [facility] Comment on above: Performed By: #### C MP #### [facility] [address] [place] [address] Dr. Domi Saleem Sodium [Moles/Vol] 128 mmol/L Critically low 136-145 [facility] Comment on above: Performed By: #### C MP #### [facility] [address] [place] [address] Dr. Domi Saleem Urea nitrogen [Mass/Vol] 14.0 mg/dL Normal 7.0-18.0 [facility] Comment on above: Performed By: #### C MP #### [facility] [address] [place] [address] Dr. Domi Saleem Urea nitrogen/Creatinine [Mass ratio] 18.2 mg/mg Normal [facility] Comment on above: Performed By: #### C MP #### [facility] [address] [place] [address] Dr. Domi Saleem [facility] 34 mm/hr Critically high <=30 [facility] Comment on above: Performed By: #### S EDR #### [facility] [address] [place] [address] Dr. Domi Saleem CBC AUTO DIFFon 07-18-2021 BASO # 0.1 103/ul Normal 0.0-0.1 [facility] Comment on above: Performed By: #### C BC #### [facility] [address] [place] [address] Dr. Domi Saleem Basophils/100 WBC (Bld) 1.2 % Normal 0.2-2.0 [facility] Comment on above: Performed By: #### C BC #### [facility] [address] [place] [address] Dr. Domi Saleem EO # 0.2 103/ul Normal 0.0-0.7 [facility] Comment on above: Performed By: #### C BC #### [facility] [address] [place] [address] Dr. Domi Saleem Eosinophils/100 WBC (Bld) 4.0 % Normal 0.9-7.0 [facility] Comment on above: Performed By: #### C BC #### [facility] [address] [place] [address] Dr. Domi Saleem Erythrocyte distribution width (RBC) [Ratio] 12.8 % Normal 11.0-15.0 [facility] Comment on above: Performed By: #### C BC #### [facility] [address] [place] [address] Dr. Domi Saleem Hematocrit (Bld) [Volume fraction] 45.2 % Normal 36.0-48.0 [facility] Comment on above: Performed By: #### C BC #### [facility] [address] [place] [address] Dr. Domi Saleem Hemoglobin (Bld) [Mass/Vol] 15.0 g/dL Normal 12.0-16.0 [facility] Comment on above: Performed By: #### C BC #### [facility] [address] [place] [address] Dr. Domi Saleem IG # 0.02 10e3/ul Normal 0.00-0.03 [facility] Comment on above: Performed By: #### C BC #### [facility] [address] [place] [address] Dr. Domi Saleem IG % 0.4 % Normal 0.0-0.5 [facility] Comment on above: Performed By: #### C BC #### [facility] [address] [place] [address] Dr. Domi Saleem LYMPH # 1.1 103/ul Critically low 1.2-3.8 [facility] Comment on above: Performed By: #### C BC #### [facility] [address] [place] [address] Dr. Domi Saleem Lymphocytes/100 WBC (Bld) 22.8 % Normal 20.5-60.0 [facility] Comment on above: Performed By: #### C BC #### [facility] [address] [place] [address] Dr. Domi Saleem MANUAL DIFF REQ NO Normal [facility] Comment on above: Performed By: #### C BC #### [facility] [address] [place] [address] Dr. Domi Saleem MCH (RBC) [Entitic mass] 31.4 pg Normal 26.7-34.0 [facility] Comment on above: Performed By: #### C BC #### [facility] [address] [place] [address] Dr. Domi Saleem MCHC (RBC) [Mass/Vol] 33.2 g/dL Normal 29.9-35.2 [facility] Comment on above: Performed By: #### C BC #### [facility] [address] [place] [address] Dr. Domi Saleem MCV (RBC) [Entitic vol] 94.8 fL Normal 81.0-99.0 [facility] Comment on above: Performed By: #### C BC #### [facility] [address] [place] [address] Dr. Domi Saleem MONO # 0.3 103/ul Normal 0.3-0.8 [facility] Comment on above: Performed By: #### C BC #### [facility] [address] [place] [address] Dr. Domi Saleem Monocytes/100 WBC (Bld) 6.8 % Normal 1.7-12.0 [facility] Comment on above: Performed By: #### C BC #### [facility] [address] [place] [address] Dr. Domi Saleem NEUT # 3.2 103/ul Normal 1.4-6.5 [facility] Comment on above: Performed By: #### C BC #### [facility] [address] [place] [address] Dr. Domi Saleem Neutrophils/100 WBC (Bld) 64.8 % Normal 43.0-75.0 [facility] Comment on above: Performed By: #### C BC #### [facility] [address] [place] [address] Dr. Domi Saleem Platelet mean volume (Bld) [Entitic vol] 8.9 fL Critically low 9.5-13.5 [facility] Comment on above: Performed By: #### C BC #### [facility] [address] [place] [address] Dr. Domi Saleem PLT 222 103/ul Normal 150-450 [facility] Comment on above: Performed By: #### C BC #### [facility] [address] [place] [address] Dr. Domi Saleem RBC 4.77 106/ul Normal 4.20-5.40 [facility] Comment on above: Performed By: #### C BC #### [facility] [address] [place] [address] Dr. Domi Saleem WBC 5.0 103/ul Normal 4.0-11.0 [facility] Comment on above: Performed By: #### C BC #### [facility] [address] [place] [address] Dr. Domi Saleem PROF 14(COMP METB)on 022 Albumin [Mass/Vol] 3.6 g/dL Normal 3.4-5.0 [facility] Comment on above: Performed By: #### C MP #### [facility] [address] [place] [address] Dr. Domi Saleem Albumin/Globulin [Mass ratio] 1.0 {ratio} Normal [facility] Comment on above: Performed By: #### C MP #### [facility] [address] [place] [address] Dr. Domi Saleem ALP [Catalytic activity/Vol] 79 U/L Normal 46-116 [facility] Comment on above: Performed By: #### C MP #### [facility] [address] [place] [address] Dr. Domi Saleem ALT [Catalytic activity/Vol] 19 U/L Normal 14-59 [facility] Comment on above: Performed By: #### C MP #### [facility] [address] [place] [address] Dr. Domi Saleem Anion gap [Moles/Vol] 10.0 mmol/L Normal [facility] Comment on above: Performed By: #### C MP #### [facility] [address] [place] [address] Dr. Domi Saleem AST [Catalytic activity/Vol] 13 U/L Critically low 15-37 [facility] Comment on above: Performed By: #### C MP #### [facility] [address] [place] [address] Dr. Domi Saleem Bilirubin [Mass/Vol] 0.3 mg/dL Normal 0.2-1.0 [facility] Comment on above: Performed By: #### C MP #### [facility] [address] [place] [address] Dr. Domi Saleem Calcium [Mass/Vol] 8.4 mg/dL Critically low 8.5-10.1 [facility] Comment on above: Performed By: #### C MP #### [facility] [address] [place] [address] Dr. Domi Saleem Chloride [Moles/Vol] 101 mmol/L Normal 98-107 [facility] Comment on above: Performed By: #### C MP #### [facility] [address] [place] [address] Dr. Domi Saleem CO2 [Moles/Vol] 31.3 mmol/L Normal 21.0-32.0 [facility] Comment on above: Performed By: #### C MP #### [facility] [address] [place] [address] Dr. Domi Saleem Creatinine [Mass/Vol] 0.75 mg/dL Normal 0.55-1.02 [facility] Comment on above: Performed By: #### C MP #### [facility] [address] [place] [address] Dr. Domi Saleem EGFR-AF MALAYSIAN >60 Normal >=60 [facility] Comment on above: Performed By: #### C MP #### [facility] [address] [place] [address] Dr. Domi Saleem EGFR-NON AF MALAYSIAN >60 Normal >=60 [facility] Comment on above: Performed By: #### C MP #### [facility] [address] [place] [address] Dr. Domi Saleem Globulin (S) [Mass/Vol] 3.6 g/dL Normal [facility] Comment on above: Performed By: #### C MP #### [facility] [address] [address] [address] Domi Saleem Glucose [Mass/Vol] 120 mg/dL Critically high 74-106 [facility] Comment on above: Performed By: #### C MP #### [facility] [address] [address] [address] Domi Saleem Potassium [Moles/Vol] 5.3 mmol/L Critically high 3.5-5.1 [facility] Comment on above: Performed By: #### C MP #### [facility] [address] [address] [address] Domi Saleem Protein [Mass/Vol] 7.2 g/dL Normal 6.1-8.2 [facility] Comment on above: Performed By: #### C MP #### [facility] [address] [place] [address] Dr. Domi Saleem Sodium [Moles/Vol] 137 mmol/L Normal 136-145 [facility] Comment on above: Performed By: #### C MP #### [facility] [address] [address] [address] Domi Saleem Urea nitrogen [Mass/Vol] 20.0 mg/dL Critically high 7.0-18.0 [facility] Comment on above: Performed By: #### C MP #### [facility] [address] [place] [address] Dr. Domi Saleem Urea nitrogen/Creatinine [Mass ratio] 26.7 mg/mg Normal [facility] Comment on above: Performed By: #### C MP #### [facility] [address] [place] [address] Dr. Domi Saleem SED RATE [facility] 2021 SED RATE 13 mm/hr Normal <=30 [facility] Comment on above: Performed By: #### S EDR #### [facility] [address] [place] [address] Dr. Domi Saleem CNOVSPon 08-20-2018 CNOVSP Visit (SP) Office (H EMACL) -- RUMA CARLTON ([id number]) 1960 F Date Time Provider Department 08/20/18 11:15 AM LEDY IGLMAN During your visit today, we recorded the following information about you: Temperature Pulse Respiration Blood pressure 98.6 degrees 61/minute 18/minute 142/80 Weight Height 115.5 kg 1.6 m Ledy Gilman MD 08/20/2018 11:48 AM Signed HPI Ruma Carlton is a 57 year old female [...] Gilman MD Referring Provider: CARMELITA SINGH JR [[id number]] Allergies As of Date: 08/20/2018 Noted Allergy [...] (FOR REMOTE [facility] USE) [SQRAGCBC] Order #: [id number] FUTURE COMP METABOLIC PANEL [SQCMP] Order #: [id number] FUTURE PROTEIN ELECTROPHORESIS W/INTERP [SQSEPG] Order #: [id number] FUTURE IMMUNOFIXATION SCREEN, SERUM [SQIFESC] Order #: [id number] FUTURE KAPPA/GERMAIN,FREE,SER [SQKLFRS] Order #: [id number] FUTURE LUPUS ANTICOAG PL [SQLUPUSP] Order #: [id number] FUTURE Disposition: Return in about 1 year [...] Status:Closed by LEDY GILMAN MD on 08/20/18 [facility] PROGRESSon 08-20-2018 Protein mass conc HNO ID: [id number] Author: Ledy Gilman Service: ? Author Type: [...] ABS GRAN CT + CBC (FOR REMOTE [facility] USE) - COMP METABOLIC PANEL - PROTEIN ELECTROPHORESIS W/INTERP - IMMUNOFIXATION SCREEN, SERUM - KAPPA/GERMAIN,FREE,SER - LUPUS ANTICOAG PL 2. 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 Will check labs and see me in follow up - ABS GRAN CT + CBC (FOR REMOTE [facility] USE) - COMP METABOLIC PANEL - PROTEIN ELECTROPHORESIS W/INTERP - IMMUNOFIXATION SCREEN, SERUM - KAPPA/GERMAIN,FREE,SER - LUPUS ANTICOAG PL Ledy Gilman MD Normal [facility] Vital Signs Date Time Vital Sign Value Performing Clinician Facility 05-28-2024 11:36-0500 Body height 157.48 cm [facility] 05-28-2024 11:36-0500 Body mass index (BMI) [Ratio] 46.7 kg/m2 [facility] 05-28-2024 11:36-0500 Body weight 115.83 kg [facility] 05-28-2024 11:36-0500 Diastolic blood pressure 77 mm[Hg] [facility] 05-28-2024 11:36-0500 Heart rate 77 /min [facility] 05-28-2024 11:36-0500 Respiratory rate 14 /min [facility] 05-28-2024 11:36-0500 SaO2% (BldA) [Mass fraction] 99 % [facility] 05-28-2024 11:36-0500 Systolic blood pressure 121 mm[Hg] [facility] 01-22-2024 10:09-0400 Body height 157.48 cm MD Anibal Chaudhary Work Phone: [facility] 01-22-2024 10:09-0400 Body mass index (BMI) [Ratio] 47.9 kg/m2 MD Anibal Chaudhary Work Phone: [facility] 01-22-2024 10:09-0400 Body weight 118.95 kg MD Anbial Chaudhary Work Phone: [facility] 01-22-2024 10:09-0400 Diastolic blood pressure 84 mm[Hg] MD Anibal Chaudhary Work Phone: [facility] 01-22-2024 10:09-0400 Heart rate 113 /min MD Anibal Chaudhary Work Phone: [facility] 01-22-2024 10:09-0400 SaO2% (BldA) [Mass fraction] 99 % MD Anibal Chaudhary Work Phone: [facility] 01-22-2024 10:09-0400 Systolic blood pressure 124 mm[Hg] MD Anibal Chaudhary Work Phone: [facility] 10-27-2023 13:42-0400 Body height 157.48 cm [facility] 10-27-2023 13:42-0400 Body mass index (BMI) [Ratio] 49.1 kg/m2 [facility] 10-27-2023 13:42-0400 Body weight 122.01 kg [facility] 10-27-2023 13:42-0400 Diastolic blood pressure 81 mm[Hg] [facility] 10-27-2023 13:42-0400 Heart rate 91 /min [facility] 10-27-2023 13:42-0400 Systolic blood pressure 144 mm[Hg] [facility] 08-19-2023 10:39-0400 Body height 157.48 cm MD Anibal Chaudhary Work Phone: [facility] 08-19-2023 10:39-0400 Body mass index (BMI) [Ratio] 48.4 kg/m2 MD Anibal Chaudhary Work Phone: [facility] 08-19-2023 10:39-0400 Body weight 120.2 kg MD Anibal Chaudhary Work Phone: [facility] 08-19-2023 10:39-0400 Diastolic blood pressure 80 mm[Hg] MD Anibal Chaudhary Work Phone: [facility] 08-19-2023 10:39-0400 Heart rate 73 /min MD Anibal Chaudhary Work Phone: [facility] 08-19-2023 10:39-0400 SaO2% (BldA) [Mass fraction] 98 % MD Anibal Chaudhary Work Phone: [facility] 08-19-2023 10:39-0400 Systolic blood pressure 150 mm[Hg] MD Anibal Chaudhary Work Phone: [facility] 05-08-2023 14:56-0500 Body height 157.48 cm MD Anibal Chaudhary Work Phone: [facility] 05-08-2023 14:56-0500 Body mass index (BMI) [Ratio] 42.6 kg/m2 MD Anibal Chaudhary Work Phone: [facility] 05-08-2023 14:56-0500 Body weight 105.74 kg MD Anibal Chaudhary Work Phone: [facility] 05-08-2023 14:56-0500 Diastolic blood pressure 85 mm[Hg] MD Anibal Chaudhary Work Phone: [facility] 05-08-2023 14:56-0500 Heart rate 85 /min MD Anibal Chaudhary Work Phone: [facility] 05-08-2023 14:56-0500 Systolic blood pressure 151 mm[Hg] MD Anibal Chaudhary Work Phone: [facility] 12-27-2022 14:45-0400 Body height 157.48 cm Anibal Chaudhary Other [employer] Other 12-27-2022 14:45-0400 Body mass index (BMI) [Ratio] 38.59 kg/m2 Anibal Chaudhary Other [employer] [facility] [employer] Other 12-27-2022 14:45-0400 Body weight 95.71 kg Anibal Chaudhary Other [facility] [employer] Other 12-27-2022 14:45-0400 Diastolic blood pressure 81 mm[Hg] Anibal Chaudhary Other [facility] [employer] Other 12-27-2022 14:45-0400 SaO2% (BldA) [Mass fraction] 99 % Anibal Chaudhary Other [facility] [employer] Other 12-27-2022 14:45-0400 Systolic blood pressure 116 mm[Hg] Anibla Chaudhary Other [facility] [employer] Other 12-24-2022 08:00-0400 Body temperature 98.2 [degF] MD Anibal Chaudhary Work Phone: [facility] 12-24-2022 08:00-0400 Diastolic blood pressure 78 mm[Hg] MD Anibal Chaudhary Work Phone: [facility] 12-24-2022 08:00-0400 Heart rate 93 /min MD Anibal Chaudhary Work Phone: [facility] 12-24-2022 08:00-0400 Respiratory rate 18 /min MD Anibal Chaudhary Work Phone: [facility] 12-24-2022 08:00-0400 SaO2% (BldA) [Mass fraction] 99 % MD Anibal Chaudhary Work Phone: [facility] 12-24-2022 08:00-0400 Systolic blood pressure 126 mm[Hg] MD Anibal Chaudhary Work Phone: [facility] 12-24-2022 02:42-0400 Body height 157.48 cm MD Anibal Chaudhary Work Phone: [facility] 12-24-2022 02:42-0400 Body weight 94.4 kg MD Anibal Chaudahry Work Phone: [facility] 11-15-2022 13:00-0400 Body height 157.48 cm Anibal Chaudhary Other [facility] [employer] Other 11-15-2022 13:00-0400 Body mass index (BMI) [Ratio] 39.69 kg/m2 Anibal Chaudhary Other [employer] Other 11-15-2022 13:00-0400 Body weight 98.43 kg Anibal Chaudhary Other [employer] Other 11-15-2022 13:00-0400 Diastolic blood pressure 78 mm[Hg] Anibal Chaudhary Other [employer] Other 11-15-2022 13:00-0400 Systolic blood pressure 140 mm[Hg] Anibal Chaudhary Other [employer] Other 09-12-2022 11:30-0400 Body height 157.48 cm Anibal Chaudhary Other [employer] Other 09-12-2022 11:30-0400 Body mass index (BMI) [Ratio] 39.14 kg/m2 Anibal Chaudhary Other [employer] Other 09-12-2022 11:30-0400 Body weight 97.07 kg Anibal Chaudhary Other [employer] Other 09-12-2022 11:30-0400 Diastolic blood pressure 85 mm[Hg] Anibal Chaudhary Other [employer] Other 09-12-2022 11:30-0400 Systolic blood pressure 157 mm[Hg] Anibal Chaudhary Other [employer] Other 04-29-2022 09:45-0500 Body height 157.48 cm Anibal Chaudhary Other [employer] Other 04-29-2022 09:45-0500 Body mass index (BMI) [Ratio] 47.55 kg/m2 Anibal Chaudhary Other [employer] Other 04-29-2022 09:45-0500 Body weight 117.94 kg Anibal Chaudhary Other [employer] Other 04-29-2022 09:45-0500 Diastolic blood pressure 88 mm[Hg] Anibal Chaudhary Other [employer] Other 04-29-2022 09:45-0500 SaO2% (BldA) [Mass fraction] 97 % Anibal Chaudhary Other [employer] Other 04-29-2022 09:45-0500 Systolic blood pressure 132 mm[Hg] Anibal Chaudhary Other [employer] Other 07-07-2020 07:58-0400 Body height 160.02 cm Anibal Chaudhary Work Phone: [facility] 07-07-2020 07:58-0400 Body weight 97.06 kg Anibal Chaudhary Work Phone: [facility] Encounters Encounter Date Encounter Type Care Provider Facility Start: 06-29-2024 End: 06-29-2024 [facility] Start: 05-28-2024 End: 05-28-2024 ambulatory [facility] Work Phone: Start: 05-28-2024 End: 05-28-2024 Patient encounter procedure [facility] Work Phone: Start: 05-26-2024 End: 05-26-[address] [facility] Start: 05-20-2024 Non-patient / Non-visit [facility] Work Phone: Start: 05-20-2024 End: 05-20-[address] [facility] Start: 05-17-2024 Non-patient / Non-visit [facility] Work Phone: Start: 05-12-2024 Evaluation and management of inpatient YASH [facility] Start: 05-12-2024 Non-patient / Non-visit [facility] Work Phone: Start: 05-11-2024 End: 05-14-2024 Evaluation and management of inpatient RADHAAva [facility] Start: 05-11-2024 End: 05-11-2024 Non-patient / Non-visit [facility] Work Phone: Start: 05-11-2024 Non-patient / Non-visit [facility] Work Phone: Start: 05-10-2024 Non-patient / Non-visit [facility] Work Phone: Start: 02-05-2024 End: 02-05-2024 [facility] Start: 01-22-2024 End: 01-22-2024 ambulatory MD Anibal Chaudhary Work Phone: [facility] Work Phone: Start: 01-22-2024 End: 01-22-2024 Patient encounter procedure MD Anibal Chaudhary Work Phone: [facility] Physician [facility] Work Phone: Start: 01-21-2024 Non-patient / Non-visit MD Marlen Chaudhary Work Phone: [facility] Physician [facility] Work Phone: Start: 01-08-2024 End: 01-08-2024 ambulatory AGUEDA ZUÑIGA [facility] Start: 01-08-2024 Non-patient / Non-visit MD Marlen Chaudhary Work Phone: [facility] Physician [facility] Work Phone: Start: 12-30-2023 Evaluation and management of inpatient [facility] Start: 12-29-2023 Evaluation and management of inpatient [facility] Start: 12-29-2023 Evaluation and management of inpatient [facility] Start: 12-28-2023 Evaluation and management of inpatient [facility] Start: 12-28-2023 Evaluation and management of inpatient [facility] Start: 12-27-2023 Evaluation and management of inpatient [facility]UEDA RIVERAOTF [facility] Start: 12-26-2023 Evaluation and management of inpatient AGUEDA ZUÑIGA [facility] Start: 12-26-2023 Evaluation and management of inpatient AGUEDA ZUÑIGA [facility] Start: 12-25-2023 Evaluation and management of inpatient ALAN PATEL [facility] Start: 12-25-2023 Evaluation and management of inpatient AGUEDA Miramontes JUNEAUCHRISTINAOTF [facility] Start: 12-24-2023 Evaluation and management of inpatient RIAN BUTTS [facility] Start: 12-23-2023 Evaluation and management of inpatient [facility] Start: 12-22-2023 Evaluation and management of inpatient [facility] Start: 12-21-2023 Evaluation and management of inpatient DION [facility] Start: 12-19-2023 Evaluation and management of inpatient AGUEDA Kulwinder [facility] Start: 12-18-2023 Evaluation and management of inpatient AGUEDA RIVERAOTF [facility] Start: 12-18-2023 Evaluation and management of inpatient AGUEDA RIVERAOTF [facility] Start: 12-17-2023 Evaluation and management of inpatient ALAN [facility] Start: 12-16-2023 Evaluation and management of inpatient [facility] Start: 12-16-2023 Evaluation and management of inpatient [facility] Start: 12-15-2023 Evaluation and management of inpatient [facility] Start: 12-15-2023 Evaluation and management of inpatient [facility] Start: 12-15-2023 Evaluation and management of inpatient [facility] Start: 12-11-2023 Evaluation and management of inpatient [facility] Start: 12-11-2023 Evaluation and management of inpatient [facility] Start: 12-10-2023 Evaluation and management of inpatient JOSÉ MIGUEL MURRIETA [facility] Start: 12-08-2023 Evaluation [facility] management [facility] Start: 12-08-2023 End: 12-08-2023 Evaluation and management of inpatient MANSI BUTTS [facility] Start: 12-08-2023 Evaluation and management of inpatient UMAIR EPREYRA [facility] Start: 12-06-2023 [facility]: 12-06-2023 Evaluation and management of inpatient [facility]ED[facility] Start: 12-05-2023 [facility] LOUISEHOTHANI [facility] Start: 12-05-2023 End: 12-30-2023 Evaluation and management of inpatient ALAN PATEL [facility] Start: 12-04-2023 End: 12-04-2023 Patient encounter procedure MD Anibal Chaudhary Work Phone: [facility] [place] Work Phone: Start: 12-04-2023 End: 12-04-2023 ambulatory MD Anibal Chaudhary Work Phone: [facility] Work Phone: Start: 12-03-2023 End: 12-03-2023 ambulatory GALE AGNES [facility] Start: 12-02-2023 End: 12-02-2023 Departed Referred MD Anibal Chaudhary Work Phone: [facility] [place] Work Phone: Start: 12-02-2023 End: 12-02-2023 Patient encounter procedure MD Anibal Chaudhary Work Phone: [facility] [place] Work Phone: Start: 12-02-2023 End: 12-02-2023 ambulatory MD Anibal Chaudhary Work Phone: [facility] Work Phone: Start: 11-03-2023 End: 11-03-2023 Patient encounter procedure MD Anibal Chaudhary Work Phone: [facility] [place] Work Phone: Start: 11-03-2023 End: 11-03-2023 ambulatory MD Anibal Chaudhary Work Phone: [facility] Work Phone: Start: 10-27-2023 End: 10-27-2023 ambulatory [facility] Work Phone: Start: 10-27-2023 End: 10-27-2023 Patient encounter procedure [facility] Physician [facility] Work Phone: Start: 09-07-2023 Non-patient / Non-visit [facility] Work Phone: Start: 08-19-2023 End: 08-19-2023 ambulatory MD Anibal Chaudhary Work Phone: [facility] Work Phone: Start: 08-19-2023 End: 08-19-2023 Patient encounter procedure MD Anibal Chaudhary Work Phone: [facility] Work Phone: Start: 07-10-2023 Non-patient / Non-visit MD Marlen Chaudhary Work Phone: [facility] Work Phone: Start: 07-08-2023 End: 07-08-2023 Patient encounter procedure MD Anibal Chaudhary Work Phone: [facility] [facility] Start: 07-08-2023 End: 07-08-2023 ambulatory MD Anibal Chaudhary Work Phone: [facility] Work Phone: Start: 06-04-2023 End: 06-04-2023 ambulatory OJSH POCOS Not Available Start: 05-29-2023 End: 08-27-2023 ambulatory Josh Pocos Facility:[facility] Start: 05-29-2023 End: 08-27-2023 Recurring Josh Pocos [facility] Start: 05-29-2023 End: 05-29-2023 ambulatory ANIBAL CHAUDHARY Facility:[facility] Start: 05-29-2023 End: 05-29-2023 Patient encounter procedure Josh Pocos [facility] Start: 05-16-2023 End: 05-16-2023 ambulatory JOSH POCOS Not Available Start: 05-08-2023 End: 05-08-2023 ambulatory MD Anibal Chaudhary Work Phone: [facility] Work Phone: Start: 05-08-2023 End: 05-08-2023 Patient encounter procedure MD Anibal Chaudhary Work Phone: [facility] Work Phone: Start: 02-25-2023 End: 02-25-2023 Departed Referred MD Anibal Chaudhary Work Phone: [facility] Work Phone: Start: 02-25-2023 End: 02-25-2023 ambulatory MD Anibal Chaudhary Work Phone: [facility] Work Phone: Start: 02-11-2023 End: 02-11-2023 ambulatory Anibal Chaudhary Other [employer] Other Start: 02-11-2023 Telephone encounter Anibal Chaudhary [facility] Start: 12-27-2022 End: 12-27-2022 ambulatory Anibal Chaudhary Other [employer] Other Start: 12-27-2022 Office outpatient vi sit 25 minutes Anibal Chaudhary [facility] Start: 12-25-2022 End: 12-25-2022 ambulatory Anibal Chaudhary Other [employer] Other Start: 12-25-2022 Telephone encounter Anibal Chaudhary [facility] Start: 12-24-2022 End: 12-24-2022 Evaluation and management of inpatient MD Anibal Chaudhary Work Phone: [facility] [place] [place] [facility] Work Phone: Start: 12-24-2022 End: 12-24-2022 observation encounter MD Anibal Chaudhary Work Phone: [facility] Work Phone: Start: 12-24-2022 End: 12-24-2022 ambulatory Petr Kowalski Facility:[facility] Start: 12-20-2022 End: 12-20-2022 ambulatory Anibal Chaudhary Other [employer] Other Start: 12-20-2022 Telephone encounter Anibal Chaparro [facility] Start: 11-15-2022 End: 11-15-2022 ambulatory Anibal Chaudhary Other [employer] Other Start: 11-15-2022 Office outpatient vi sit 15 minutes Anibal Chaudhary [facility] Start: 09-12-2022 End: 09-12-2022 ambulatory Anibal Chaudhary Other [employer] Other Start: 09-12-2022 Office outpatient vi sit 25 minutes Anibal Chaudhary [facility] Start: 09-12-2022 Telephone encounter Anibal Chaparro [facility] Start: 07-04-2022 End: 07-04-2022 ambulatory Anibal Chaparro Other [employer] Other Start: 07-04-2022 Telephone encounter Anibal Chaparro [facility] Start: 06-18-2022 End: 06-18-2022 ambulatory Virgilio Mckeon Other [employer] Other Start: 06-18-2022 Telephone encounter Virgilio Mckeon [facility] Start: 05-30-2022 End: 05-30-2022 ambulatory Anibal Chaudhary Other [employer] Other Start: 05-30-2022 Telephone encounter Anibal Chaparro [facility] Start: 05-27-2022 End: 05-28-[address] DOCTOR VERAS Facility: Start: 04-29-2022 End: 04-29-2022 ambulatory Anibal Chaudhary Other [employer] Other Start: 04-29-2022 Office outpatient vi sit 15 minutes Anibal Chaudhary [facility] Start: 04-29-2022 Telephone encounter Anibal Chaudhary [facility] Start: 02-11-2022 ambulatory Facility:[id number] Start: 02-11-2022 End: 02-11-2022 Patient encounter procedure Yany Jc Shivanibernardo [facility] Start: 01-07-2022 End: 01-26-2022 Pre-admission assessment Yany Amezcua [facility] Start: 11-20-2021 Adult health examination Anibal Chaudhary Other [employer] Other Start: 11-20-2021 Encounter for genera l adult medical examination without abnormal findings DR DOCTOR VERAS [facility] Start: 11-19-2021 End: 11-20-2021 ambulatory ANIBAL CHAUDHARY Facility:[facility] Start: 11-19-2021 End: 11-20-2021 Encounter for general adult medical examination without abnormal findings DR DOCTOR VERAS Facility:[facility] Start: 07-18-2021 End: 07-19-[address] DOCTOR VERAS Facility:[facility] Start: 07-07-2020 End: 07-07-2020 Patient encounter procedure Anibal Chaudhary Work Phone: [facility] [place] Procedures Date Procedure Procedure Detail Performing Clinician Start: 05-26-2024 Follow-up visit DARY MEREDITH AD Start: 05-20-2024 Follow-up visit DARY MEREDITH AD Start: 02-05-2024 Follow-up visit DARY SA AD Start: 01-08-2024 Follow-up visit DARY SA AD Start: 12-03-2023 Follow-up visit DARY MEREDITH AD Start: 07-07-2020 MRI of head Anibal Agus cuba Work Phone: Plan of Treatment Date Care Activity Detail Author Start: 12-03-2023 [facility] Start: 11-03-2023 [facility] Start: 07-08-2023 [facility] Start: 12-24-2022 [facility] Start: 12-24-2022 Hospital admission [facility] Start: 12-24-2022 [facility] Start: 12-24-2022 Sleep disorder assessment [facility] 25-hydroxyvitamin D2 [Mass/volume] in Serum or Plasma [facility] 25-hydroxyvitamin D3 [Mass/volume] in Serum or Plasma [facility] 25-Hydroxyvitamin D3+25-Hydroxyvitamin D2 [Mass/volume] in Serum or Plasma [facility] Comprehensive metabo lic 2000 panel - Serum or Plasma [facility] Glucose measurement estimated from glycated hemoglobin [facility] Patient referral [facility] Work Phone: Thyrotropin [Units/v olume] in Serum or Plasma [facility] Thyroxine (T4) free index in Serum or Plasma by calculation [facility] Thyroxine measurement [facility] Triiodothyronine (T3 ) [Mass/volume] in Serum or Plasma [facility] Triiodothyronine res in uptake (T3RU) in Serum or Plasma [facility] Payers Date Payer Category Payer Medicaid [id number] 2022 Self-pay [id number] 1960 Unknown [id number] 2.16. [id number] 1960 Unknown [id number] 2.16.84 0.1.356096.3.579.2.593 1960 Unknown [id number] 2.16.84 0.1.830189.3.579.2.593 1960 Unknown [id number] 2.16.84 0.1.319213.3.579.2.593 1960 Unknown [id number] 2.16.84 0.1.826600.3.579.2.593 1960 Unknown [id number] 2.16.84 0.1.643819.3.579.2.1259 1960 Unknown [id number] 2.16.84 0.1.582594.3.579.2.1259 1960 Unknown [id number] 2.16.84 0.1.137873.3.579.2.1259 1961 Unknown [id number] 2.16.84 0.1.479850.3.579.2.1259 1961 Unknown [id number] 2.16.8 40.1.862613.3.579.2.727 1960 Unknown [id number] 2.16.8 40.1.238206.3.579.2.727 1959 Unknown [id number] Private Health Insurance [id number] Unknown [id number] Unknown [id number] 2.16.8 40.1.430062.3.579.2.531 Unknown [id number] 2.16.8 40.1.470993.3.579.2.531 Unknown [id number] 2.16.8 40.1.506825.3.579.2.531 Unknown [id number] 2.16.8 40.1.872481.3.579.2.531 Unknown [id number] 2.16.8 40.1.995160.3.579.2.531 Unknown [id number] 2.16.8 40.1.698895.3.579.2.531 Unknown [id number] 2.16.8 40.1.993995.3.579.2.531 Social History Date Type Detail Facility Tobacco smoking stat [facility] Unknown if ever smoked [facility] Start: 1960 Sex Assigned At Female F [facility] Tobacco smoking status No Smokin g Status Entered [facility] Sex Assigned At Female [facility] Start: 12-24-2022 End: 12-24-2022 Tobacco smoking status NHIS Current some day smoker [facility] Start: 12-27-2022 End: 12-27-2022 Tobacco smoking status NHIS Smoker (finding) [facility] Start: 05-28-2024 Sex Female (finding) [facility] Goals Date Patient Goal Desired Activity /State Functional Status Date Assessment Result Facility 12-24-2022 Functional status Patient at Baseline [facility] Work Phone: Mental Status Date Assessment Result Facility 12-24-2022 Cognitive function Cognitive Sta tus Patient at Baseline [facility] Work Phone: Clinical Notes 04-29-2022 to 05-26-2024 Note Date & Type Note Facility 05-26-2024 Note [facility] 05-26-2024 Note [facility] 05-20-2024 Note [facility] 05-20-2024 Note [facility] 05-14-2024 Note Attempted to delete note. Left incomplete. [facility] 05-13-2024 Note [facility] 05-13-2024 Note [facility] 05-12-2024 Note [facility] 05-12-2024 Note [facility] 05-12-2024 Note Case was discussed w ith the ADEBAYO on 05/11/2024. I agree with the history, physical, assessment, and plan of care. I discussed the findings and therapeutic plan. I agree with the documentation, except for any updates below. Rao Foster MD [facility] 05-12-2024 Note [facility] 05-12-2024 Note Per primary team to consider addition of CPAP/BiPAP nightly [facility] 05-12-2024 Note Continue with home m edication, levothyroxine 50 mcg tablet p.o. daily [facility] 05-12-2024 Note Continue diuresis as above Supplemental O2 at 2-4 L/min via nasal cannula as needed [facility] 05-12-2024 Note Insulin lispro per s liding scale before meals and at bedtime. Continue home medication Januvia 100 mg p.o. daily [facility] 02-05-2024 Note [facility] 01-08-2024 Note [facility] 12-30-2023 Note [facility] 12-30-2023 Note [facility] 12-30-2023 Note Occupational Therapy Name: Ruma Carlton Date of : 1960 Today's Date: 12/30/23 Pt is unable to be seen for therapy at this time secondary to Discharging @ 1530. Check No Charge Time attempted: 1325 [facility] 12-30-2023 Note [facility] 12-30-2023 Note [facility] 12-29-2023 Note [facility] 12-29-2023 Note [facility] 12-29-2023 Note [facility] 12-29-2023 Note [facility] 12-29-2023 Note [facility] 12-29-2023 Note Addendum created 10/14 0920 by Mario Bermudez MD Attestation recorded in Intraprocedure (Anesthesia), Intraprocedure Attestations filed (Anesthesia), Intraprocedure Event edited, Intraprocedure Staff edited, Intraprocedure Staff edited (Anesthesia) [facility] 12-29-2023 Note [facility] 12-28-2023 Note [facility] 12-28-2023 Note CTS: Patient seen and examined post left pigtail catheter removal I concur with the xray report and do not see any pneumothorax. Lungs CTA bilaterally Dressing dry and intact Satting 98% on room air Updated daughter at bedside. [facility] 12-28-2023 Note Sent updates to [facility]. They have pre-cert which is good through Lisa 10/8. Awaiting medical readiness. [facility] 12-28-2023 Note [facility] 12-28-2023 Note [facility] 12-27-2023 Note [facility] 12-27-2023 Note [facility] 12-27-2023 Note [facility] 12-27-2023 Note [facility] 12-26-2023 Note [facility] 12-26-2023 Note [facility] 12-26-2023 Note Updates sent to [facility]. Patient still has chest tube in place. Awaiting Pulmonary to see patient today. SW continues to follow. [facility] 12-26-2023 Note [facility] 12-26-2023 Note [facility] 12-26-2023 Note [facility] 12-25-2023 Note [facility] 12-25-2023 Note [facility] 12-25-2023 Note [facility] 12-25-2023 Note [facility] 12-25-2023 Note [facility] 12-25-2023 Note [facility] 12-25-2023 Note [facility] 12-24-2023 Note [facility] 12-24-2023 Note [facility] 12-24-2023 Note Awaiting precert for [facility]. Per CT Surgery patient should be medically ready for discharge on 12/24. SW following. [facility] 12-24-2023 Note A. Satisfactory for evaluation. Examination of the ThinPrep slide and cell block reveals reactive mesothelial cells in a background of marked acute inflammation. [facility] Comment on above: Performed By: #### L AB13 ####[facility] (BEAKER)[address] [place] [address] 12-24-2023 Note [facility] 12-24-2023 Note [facility] 12-24-2023 Note [facility] 12-24-2023 Note [facility] 12-23-2023 Note [facility] 12-23-2023 Note [facility] 12-23-2023 Note [facility] 12-23-2023 Note [facility] 12-22-2023 Note [facility] 12-22-2023 Note [facility] 12-22-2023 Note [facility] 12-22-2023 Note [facility] 12-22-2023 Note [facility] 12-22-2023 Note [facility] 12-21-2023 Note [facility] 12-20-2023 Note [facility] 12-20-2023 Note [facility] 12-20-2023 Note [facility] 12-19-2023 Note [facility] 12-19-2023 Note [facility] 12-19-2023 Note [facility] 12-19-2023 Note [facility] 12-19-2023 Note [facility] 12-18-2023 Note [facility] 12-18-2023 Note [facility] 12-18-2023 Note [facility] 12-18-2023 Note Occupational Therapy Name: Ruma Carlton Date of : 1960 Today's Date: 12/18/23 Pt is unable to be seen for therapy at this time secondary to Pt currently off floor for testing Check No Charge Time attempted: 1407 [facility] 12-18-2023 Note [facility] 12-18-2023 Note Echo attempted bedsi de @10:45 am. Patient in chair, called RN but busy, unable to get patient back in bed for test. Will try again later. [facility] 12-18-2023 Note [facility] 12-18-2023 Note [facility] 12-17-2023 Note [facility] 12-17[facility]2023 [facility] 12-17-2023 Note [facility] [place] 12-17-2023 Note [facility] [place] 12-16-2023 Note [facility] [place] 12-16-2023 Note [facility] [place] 12-16-2023 Note [facility] [place] 12-15-2023 Note [facility] [place] 12-15-2023 Note [facility] 12-15-2023 Note [facility] [place] 12-15-2023 Note [facility] [place] 12-15-2023 Note [facility] 12-14-2023 Note [facility] 12-13-2023 Note [facility] 12-13-2023 Note [facility] [place] 12[facility]12-2023 Note [facility] 12[facility]12-2023 Note [facility] [place] 12-12-2023 Note [facility] 12-12-2023 Note [facility] 12-11-2023 Note [facility] [place] 12-11-2023 Note [facility] 12-11-2023 Note [facility] 12-10-2023 Note [facility] [place] 12[facility]10-2023 Note [facility] [place] 12-10-2023 Note [facility] [place] 12-10-2023 Note [facility] [place] 12-09-2023 Note [facility] [place] 12-09-2023 Note [facility] [place] 12[facility]09-2023 Note [facility] [place] 12-09-2023 Note [facility] 12-08-2023 Note [facility] [place] 12-08-2023 Note [facility] [place] 12-08-2023 Note [facility] [place] 12-08-2023 Note [facility] [place] 12[facility]08-2023 Note [facility] 12-08-2023 Note [facility] 12-07-2023 Note [facility] 12-07-2023 Note [facility] 12-07-2023 Note [facility] 12-06-2023 Note [facility] 12-06-2023 Note Case was discussed w ith the ADEBAYO on 12/05/2023. I agree with the history, physical, assessment, and plan of care. I discussed the findings and therapeutic plan. I agree with the documentation, except for any updates below. Gregory Wright MD [facility] 12-04-2023 Note Chest tightness and LOPEZ will plan for cardiac cath in light of severe coronary calcifications noted, DM, HTN, HPL, abnormal ECG [facility] 12-04-2023 Note Diabetes is managed by PCP [facility] 12-04-2023 Note [facility] 12-04-2023 Note Managed per PCP Recommended weight loss [facility] 12-03-2023 Note [facility] 12-03-2023 Note [facility] 02-11-2023 Evaluation note Encounter Date Diagnosis Assessment Notes Jan, Acute pain of right hip (ICD-10 - M25.551) [employer] Other 10-06-2023 Evaluation note* Encounter Date Diagnosis [...] monitor results and followup in 3-4 weeks. [employer] Other 10-04-2023 Evaluation note* Encounter Date Diagnosis Assessment Notes Treatment Notes Treatment Clinical Notes Dec, Depressive disorder (ICD-10 - F32.A) [employer] Other 10-03-2023 History and physical note Author Froilan Brown [facility] December 24, 2022 4:06am Note Date/Time December 24, 2022 3: 58am [facility] [address] [place] [address] Hospitalist H&P Signed Patient: Ruma Carlton MR#: [id number] : 1960 Acct:[id number] Age/Sex: 62 / F Adm Date: 3 Loc: Room: [address] [place] [address] Type: ADM IN Attending Dr: Froilan Brown MD Copies to: MD Anibal Mosquera MD~ HPI DATE OF EXAMINATION: 12/24/22 CHIEF COMPLAINT: fall HISTORY OF PRESENT ILLNESS: The patient is a 62 year old woman with a history of HTN, DVT/PE on xarelto, POTS, NIDDM2, paroxysmal SVT who presented to [place] ED after a fall. Per the patient [...] got up from sleeping to walk to [facility] and fell- pt reports she felt wobbly after taking the flexeril. shedid not lose consciousness or feel dizzy and denies any chest pain or shortness of breath. Pt's right hip pain worsened over the course of Friday so she went to [place] ER for evaluation on arrival there vital [...] feels improved after she got tylenol at [place]- the patient is somewhat irritated at being [...] were negative except as noted in the [facility] Medical History Apnea Arthritis Back [...] thrombosis): (5) Hyponatremia: Plan: mild (126 at [place])- ?medication related Plan - admit to medicine - monitor on telemetry - restart home medications - will check STAT troponin now. if it is markedly increased compared to at [place], would ask cardiology to see pt. if [...] 1 Documented By: Froilan Brown MD 12/24/22 035 Signed By: <Electronically signed by Froilan Brown MD> 12/24/22405 [facility] Work Phone: 1(661) 764-298809-29-2023 Evaluation note* Encounter Date Diagnosis Assessment Notes Treatment Notes Treatment Clinical Notes Nov, Depressive disorder (ICD-10 - F32.A) [employer] Other 08-25-2023 Evaluation note* Encounter Date Diagnosis Assessment Notes Treatment Notes Treatment Clinical Notes Oct, Depressive disorder (ICD-10 - F32.A) Mood improved. 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 She hasn't rec'd the midodrine yet, but will start it and followup w [facility] cardio [employer] Other 06-22-2023 Evaluation note* Encounter Date Diagnosis [...] the past (years ago). Requests a refill. [employer] Other 02-06-2023 Evaluation note* Encounter Date Diagnosis [...] ENT eval if area does not resolve. 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 [facility] Assessments Information Available [facility] [employer] Other Evaluation note* Diagnosis Onset Date Resolution Status Elevated troponin acute Fall acute Hyponatremia acute Personal history of DVT (deep vein thrombosis) acute Right hip pain acute [facility] Work Phone: Evaluation noteNo assessment information available [facility] Work Phone: Evaluation note* Diagnosis Onset Date Resolution Status Anxiety acute Bilateral primary osteoarthritis of knee acute Depression acute Right hip pain acute [facility] Work Phone: Evaluation note* Diagnosis Onset Date Resolution Status Abnormal TSH acute Arthritis, rheumatoid acute Lower extremity edema acute Urinary frequency acute [facility] Work Phone: Evaluation note* Diagnosis Onset Date Resolution Status Abnormal TSH acute Arthritis, rheumatoid acute Lower extremity edema acute Urinary frequency acute Abnormal TSH acute Diabetes mellitus, type 2 ac [place] Hypertension acute [facility] Work Phone: Evaluation note* Diagnosis Onset Date Resolution Status Abnormal TSH acute Arthritis, rheumatoid acute Lower extremity edema acute Urinary frequency acute Abnormal TSH acute Arthritis, rheumatoid acute Diabetes mellitus, type 2 ac [place] Hypertension acute [facility] Work Phone: Evaluation note* Diagnosis Onset Date Resolution Status Abnormal TSH acute Arthritis, rheumatoid acute Diabetes mellitus, type 2 ac [place] Hypertension acute [facility] Work Phone: History general Narrative - Reported* [...] rele ase 02/2022 Hospitalization History see above [employer] Other History general Narrative - Reported* Type [...] rele ase 02/2022 Hospitalization History see above [employer] Other Hospital Discharge instructions No data available for this section [facility] No data available for this section [facility] Author Petr Kowalski [facility] December 24, 2022 11:58am Note Date/Time December 24, 2022 11 :58am [facility] [address] [place] [address] Hospitalist Progress Note Signed Patient: Ruma Carlton MR#: [id number] : 1960 Acct:[id number] Age/Sex: 62 / F Adm Date: 3 Loc: Room: [address] [place] [address] Type: ADM INOo Attending Dr: Petr Kowalski MD Copies to: ~ Date of Service: 12/24/2022 Subjective Subjective Narrative: The patient is a 62 year old woman with a history of HTN, DVT/PE on xarelto, POTS, NIDDM2, paroxysmal SVT who presented to [place] ED after a fall. Per the patient [...] got up from sleeping to walk to [facility] and fell- pt reports she felt wobbly after taking the flexeril. shedid not lose consciousness or feel dizzy and denies any chest pain or shortness of breath. Pt's right hip pain worsened over the course of Friday so she went to [place] ER for evaluation On arrival there vital [...] feels improved after she got Tylenol at [place]- the patient is somewhat irritated at being [...] to the fall. Her CT head at [place] was unremarkable for ICH patient remained stable [...] 08:59 50 mg DAILY SANAZ Administration Pyridostigmine [place] 120 mg 12/24/22 09:00 12/24/22 08:36 Pyridostigmine [place] 60 Mg Tablet PO 12/24/23 08:59 120 [...] thrombosis): (5) Hyponatremia: Plan: mild (126 at [place])- ?medication related Plan -Repeat Troponin here WNL. Sodium level WNL -CT head done at [place] with no evidence of intracranial bleed. Patient remained stable with no focal deficits -X-ray of the hip done at [place] with no evidence of fracture dislocation -Patient [...] <Electronically signed by Petr Kowalski MD> 12/24/22 1151 [facility] Work Phone: Summary [...] g hand and feet FMLA follow up R79.89 I10 E11.9 Reason for Visit Abnormal TSH Arthritis, rheumatoid Lower extremity edema Urinary frequency Abnormal TSH Arthritis, rheumatoid Diabetes mellitus, type 2 Hypertension Chief Complaint FMLA follow up R79.89 I10 E11.9 Reason for Visit Abnormal TSH Arthritis, rheumatoid Diabetes mellitus, type 2 Hypertension Chief Complaint FMLA follow up R79.89 I10 E11.9 M13.0 R76.0 Z79.899 Q3M R06.09 Reason for Visit Abnormal TSH Arthritis, rheumatoid Diabetes mellitus, type 2 Hypertension Chief Complaint FMLA follow up R79.89 I10 E11.9 M13.0 R76.0 Z79.899 Q3M R06.09 R06.9 Amb Documentation CC Adult Risk Stratification [facility]:CABG-HIGH RISK Reason for Visit Abnormal TSH Arthritis, rheumatoid Diabetes mellitus, type 2 Hypertension Chief Complaint Admit Date Amb Documentation May 17, 2024 1:57pm [facility]; heart failure-HIGH RISK May 28, 2024 11:25am Additional Source Comments INFORMATION SOURCE (unrecogn ized section and content) DATE CREATED AUTHOR 08/29/2018 [facility] DATE CREATED AUTHOR AUTHOR'S ORGANIZ ATION 03/20/2022 [facility] DATE CREATED AUTHOR AUTHOR'S ORGANIZ ATION 05/29/2022 [facility] DATE CREATED AUTHOR AUTHOR'S ORGANIZ ATION 06/05/2023 [facility] EPIC DATE CREATED AUTHOR AUTHOR'S ORGANIZ ATION 08/29/2023 [facility] DATE CREATED AUTHOR AUTHOR'S ORGANIZ ATION 12/16/2023 [facility] DATE CREATED AUTHOR AUTHOR'S ORGANIZ ATION 07/08/2024 [facility] Patient Care team informatio n (unrecognized section [...] 2023 Team Status: Inactive Member Role Status Elodia Chaudhary MD Primary Care Provide r, Attending Provider Active Start: May 08, 2023 End: May 08, 2023 Team Status: Inactive Member Role Status Elodia Chaudhary MD Primary Care Provider Active Start: July 08, 2023 End: July 08, 2023 TOI LandC Attending Provider Active Start: July 08, 2023 End: July 08, 2023 Team Status: Active Member Role Status Dates Anibal Chaudhary MD Primary Care Provider Active Start: July 10, 2023 ANASTASIA Mir Attending Provider Active Start : July 10, 2023 Team Status: Inactive Member Role Status Elodia Chaudhary MD Primary Care Provide r, Attending Provider Active Start: August 19, 2023 End: August 19, 2023 Team Status: Inactive Member Role Status Dates ROCKY Elias Attending Provider Active S tart: December 02, 2023 End: December 02, 2023 Team Status: Inactive Member Role Status Dates ROCKY Elias Attending Provider Active S tart: December 04, 2023 End: December 04, 2023 Team Status: Inactive Member Role Status Dates Gale ROCKY Navarro Attending Provider Active S tart: December 04, [...] January 22, 2024 End: January 22, 2024 REASON FOR VISIT (unrecogniz ed section [...] BE BASED ON THE PRIMARY CLINICAL RECORDS. [employer] provides no warranty or guarantee of the accuracy or completeness of information in this document.
== END 2024-07-01 23:59 | disposition home or self-care (01) ==
LOC: NM 07-08 11:08
PROVIDERS: PCP Family Medicine; Visit Provider Nurse Practitioner Family
DX: R06.09 Other forms of dyspnea (principal); R94.8 Abnormal results of function studies of other organs and systems; Z95.1 Presence of aortocoronary bypass graft; E66.9 Obesity, unspecified; Z68.42 Body mass index [BMI] 45.0-49.9, adult
CPT/HCPCS: 78452; 93798; A9500

== ENCOUNTER 2024-07-02 09:45 | Outpatient (OUT) | payer OTHER, SELFPAY ==
--- OUTSIDE RECORDS SUMMARY | 2024-07-08 11:15 | XMS_ITS | CCD ---
Author Organization [facility] Care Team Providers Care Supervisor Incising Name Role Phone Anibal Chaudhary Primary Care [...] Unavailable MD Anibal Chaudhary Primary Care Provider [phone] MD Froilan Brown Admit Provider MD Petr [...] Attending Provider Pocbernardo, Yany Jc Attending Unavailable PocYany chang Referring Unavailable ANIBAL CHAUDHARY Consulting Unavailable Yany Amezcua Admitting Unavailable Pocbernardo, Yany Jc Attending Unavailable Yany Amezcua Referring Unavailable MD ANIBAL CHAUDHARY Consulting Unavailable MD Anibal Chaudhary Primary Care Provider MD Anibal Chaudhary Attending Provider ObTOI conleyC Barby Fernandez Attending Provider AgnesSTARRC Gale Attending Provider [phone] Agnes, Gale Admitting Unavailable Agnes, Gale Attending [...] Facility Unclassified (1 source) Allergy to substance [facility] (13 sources) Codeine Drug Allergy Unknown [facility] Other (20 sources) Metoclopramide Drug Allergy 05-08-19 24 Unknown, [facility] (13 sources) Sulfamethoxazole / Trimethoprim Drug Allergy Unknown [facility] Other (13 sources) Sulfonamides (Antibiotic) Drug allergy rash [facility] Other (12 sources) Codeine; Translations: [CODEINE] Drug Allergy 04-06-19 14 [facility] (1 source) Iothalamate Drug Allergy 04-06-19 14 [facility] (1 source) Morphine Drug Allergy 04-12-19 14 [facility] (1 source) Sulfonamides (Antibiotic) Drug allergy (disorder) 04-06-19 14 [facility] (5 sources) Codeine Drug Allergy 02-25-20 14 Unknown [facility] Other (14 sources) Sulfonamides (Antibiotic); Translations: [Sulfa (Sulfonamide Antibiotics)] Allergy to substance 03-11-20 14 Hives, Hives, rash [facility] (11 sources) Sulfamethoxazole; Translations: [sulfamethoxazole] Drug Allergy 05-08-19 24 [facility] (11 sources) Trimethoprim; Translations: [trimethoprim] Drug Allergy 05-08-19 [facility] (1 source) Codeine Drug Allergy 10-27-19 [facility] (1 source) Metoclopramide Drug Allergy 10-27-19 [facility] (1 source) Metoclopramide; Translations: [METOCLOPRAMIDE HCL] Drug Allergy 03-11-20 14 [facility] Medications Current Medications Medication Drug [...] tablets by mouth four times daily Pyridostigmine [place] 60 mg tablet Active 120 MG PO Four times daily December 24, 2022 12:00am Start: 12-24-2022 End: 05-08-2023 take 2 tablets by mouth twice daily Pyridostigmine [place] 60 mg Tablet Discontinued 120 MG PO Twice daily 0 December 24, 2022 12:00am May 08, 2023 4:09pm Start: 12-24-2022 take 120 mg by mouth four times daily Pyridostigmine [place] Active 120 MG PO Four times daily December 24, 2022 12:00am Start: 12-24-2022 End: 12-24-2022 Pyridostigmine [place] 180 m g Tablet Extended Release Discontinued 120 MG PO Daily December 24, 2022 12:00am December 24, 2022 8:13am Start: 12-24-2022 End: 12-24-2022 take 120 mg by mouth once daily Pyridostigmine [place] Discontinued 120 MG PO Daily December 24, 2022 12:00am December 24, 2022 8:13am Start: 12-24-2022 End: 05-08-2023 take 120 mg by mouth twice daily Pyridostigmine [place] Discontinued 120 MG PO Twice daily 0 December 24, 2022 12:00am May 08, 2023 4:09pm take 1 tablet by veronica th every four hours Pyridostigmine [place] 60 MG 1 tablet Orally every 4 [...] 10:46am Start: 02-12-2023 take 1 tablet by veornica th every six hours HYDROcodone-Acetaminophen 5-325 MG [...] 6 hrs for 30 days Apr, Active [id number] actuat albuterol 0.09 mg/actuat metered dose [...] Start: 09-12-2022 take 1 capsule by mo [facility] every twenty-four hours Temazepam 15 MG [...] 4:10pm Start: 09-13-2022 take 1 tablet by [facility] three times daily as needed traMADol HCl [...] Coronary arteriosclerosis; Translations: [Atherosclerotic heart disease of [place] coronary artery without angina pectoris] Onset: 4 [...] care home (current) drug therapy; Translations: [OTH PENITENTIARY CURRENT DRUG THERAPY] Onset: 3 Episodic Other [...] on 07/01/2024. Patient made aware. Orders entered. [facility] Orders Onlyon 07-06-2024 Orders Only [facility] [id number] 36 Spoke to patient and advised her that Francie Milo would like her to increase her spirolactone to 12.5 and have a BMP done in 1 month. Patient verbalized understanding. [facility] 06-15-2024 36 Darryl Pedraza CNP P Cardiology Clinical Support Pool Her labs show a slight bump in her kidney function. Would like her to go back to spironolactone 12.5mg daily. Follow up BMP in 1 month. Thank you Left message for patient to call back. [facility] 06-09-2024 36 Okay, lets order for a lexiscan stress test please. Please remind her to get follow up BMP since we increased her aldactone. Thank you [facility] 05-26-2024 37 *We are increasing spironolactone to 25mg daily *Have lab work done around 06/02/2024 to check kidney function with the increase in spironolactone. *We will call you in 1-2 weeks to see how you are feeling. *Follow-up after event monitor comes off. [facility] 05-20-2024 37 [facility] Estimated glomerular filtrat ion rate (GFR) non- Americanon 05-20-2024 GFR/1.73 sq M.predicted among non-blacks MDRD (S/P/Bld) [Vol rate/Area] Estimated glomerular filtration rate (GFR) non- Low >=60 mL/min/1.73 m 2 [facility] - Chemistry and C hemistry - challengeon 05-20-2024 Calcium [Mass/Vol] 9.4 mg/dL 8.5-10.1 [facility] Chloride [Moles/Vol] 102 mmol/L 98-107 [facility] CO2 [Moles/Vol] 30.4 mmol/L 21.0-32.0 [facility] Creatinine [Mass/Vol] 1.12 mg/dL High 0.55-1.02 [facility] GFR/1.73 sq M.predicted MDRD (S/P/Bld) [Vol rate/Area] 60 mL/min/{1.73_m2} >=60 mL/min/1.73 m 2 [facility] Glucose [Mass/Vol] 158 mg/dL High 74-106 [facility] Potassium [Moles/Vol] 3.8 mmol/L 3.5-5.1 [facility] Sodium [Moles/Vol] 140 mmol/L 136-145 [facility] Urea nitrogen [Mass/Vol] 22.0 mg/dL High 7.0-18.0 [facility] Urea nitrogen/Creatinine [Mass ratio] 19.6 mg/mg [facility] Serum or plasma anion gap de terminationon 05-20-2024 Anion gap [Moles/Vol] Serum or plasma an ion gap determination [facility] Telephoneon 05-18-2024 Telephone [facility] Documentationon 05-17-2024 Documentation Normal [facility] Telephoneon 05-17-2024 Telephone Normal [facility] 36on 05-15-2024 36 Normal [facility] Telephoneon 05-15-2024 Telephone Normal [facility] 30on 05-14-2024 30 Normal [facility] 30 Normal [facility] BASIC METABOLIC PANELon 04-25 Anion gap [Moles/Vol] 14 mmol/L Normal 7-20 [facility] Comment on above: Performed By: #### L [id number] ####[facility] (BEAKER)[address] [place] [address] Calcium [Mass/Vol] 9.5 mg/dL Normal 8.6-10.3 [facility] Comment on above: Performed By: #### L [id number] ####[facility] (BEAKER)[address] [place] [address] Chloride [Moles/Vol] 104 mmol/L Normal 98-107 [facility] Comment on above: Performed By: #### L [id number] ####[facility] ([facility])[address] [place], [place] [address] CO2 [Moles/Vol] 23 mmol/L Normal 21-31 [facility] Comment on above: Performed By: #### L [id number] ####[facility] ([facility])[address] [place], [place] [address] Creatinine [Mass/Vol] 1.04 mg/dL Normal 0.60-1.20 [facility] Comment on above: Performed By: #### L [id number] ####[facility] ([facility])[address] [place] [place] [address] GLOMERULAR FILTRATION RATE ML/MIN/1.73 SQ M.PREDICTED 60.8 mL/min/1.73m*2 Normal >60.0 [facility] Comment on above: Result Comment: [facility]???s estimated glomerular filtration rate (eGFR) will no [...] of individuals. Performed By: #### L [id number] ####[facility] [place] [address] Glucose [Mass/Vol] 128 mg/dL High 70-100 [facility] Comment on above: Performed By: #### L [id number] ####[facility] (BEAKER)[address] [place] [address] Potassium [Moles/Vol] 4.5 mmol/L Normal 3.5-5.1 [facility] Comment on above: Performed By: #### L [id number] ####[facility] (BEAKER)[address] [place] [address] Sodium [Moles/Vol] 136 mmol/L Normal 136-145 [facility] Comment on above: Performed By: #### L [id number] ####[facility] (BEAKER)[address] [place] [address] Urea nitrogen [Mass/Vol] 23 mg/dL Normal 7-25 [facility] Comment on above: Performed By: #### L [id number] ####[facility] (BEAKER)[address] [place] [address] UREA NITROGEN/CREATININE (MASS RATIO) IN SER/PLAS 22.1 Normal [facility] Comment on above: Performed By: #### L [id number] ####[facility] (BEAKER)[address] [place], [place] [address] CBCon 05-14-2024 Erythrocyte distribution width (RBC) [Ratio] 14.3 % Normal 11.5-15.0 [facility] Comment on above: Performed By: #### L [id number] ####[facility] (BEAKER)[address] [place] [address] ERYTHROCYTE MEAN CORPUSCULAR HEMOGLOBIN CONCENTRATION (G/DL) BY AUTOMATED 31.9 g/dL Low 32.0-35.0 [facility] Comment on above: Performed By: #### L [id number] ####[facility] (BEAKER)[address] [place] [address] Hematocrit (Bld) [Volume fraction] 45.8 % Normal 36.0-48.0 [facility] Comment on above: Performed By: #### L [id number] ####[facility] (BEAKER)[address] [place] [address] Hemoglobin (Bld) [Mass/Vol] 14.6 g/dL Normal 12.0-15.0 [facility] Comment on above: Performed By: #### L [id number] ####[facility] ([facility])[address] [place] [address] MCH (RBC) [Entitic mass] 29.1 pg Normal 27.0-33.0 [facility] Comment on above: Performed By: #### L [id number] ####[facility] ([facility])[address] [place] [place] [address] MCV (RBC) [Entitic vol] 91.4 fL Normal 82.0-98.0 [facility] Comment on above: Performed By: #### L [id number] ####[facility] ([facility])[address] [place] [place] [address] PLATELETS (10*3/UL) IN BLOOD AUTOMATED COUNT 256 10*3/uL Normal 150-400 [facility] Comment on above: Performed By: #### L [id number] ####[facility] ([facility])[address] [place] [place] [address] RBC (Bld) [#/Vol] 5.01 10*6/uL High 3.80-5.00 [facility] Comment on above: Performed By: #### L [id number] ####[facility] ([facility])[address] [place] [place] [address] WBC (Bld) [#/Vol] 6.81 10*3/uL Normal 4.00-10.60 [facility] Comment on above: Performed By: #### L [id number] ####[facility] ([facility])[address] [place] [place] [address] DSon 05-14-2024 DS Normal [facility] POCT GLUCOSE METER UNSOLICIT ED RESULTSon 05-14-2024 Glucose [Mass/Vol] 206 mg/dL High 70-105 [facility] Comment on above: Order Comment: Waive d Testing in the ED is performed under the ED CLIA certificate #[id number]. Result Comment: dcun dic Performed By: #### L [id number] ####[facility] ([facility]ER)[address] [place] [address] Glucose [Mass/Vol] 146 mg/dL High 70-105 [facility] Comment on above: Order Comment: Waive d Testing in the ED is performed under the ED CLIA certificate #[id number]. Result Comment: [email or web address] [email or web address] Performed By: #### L [id number] ####[facility] ([facility]ER)[address] [place] [address] 30on 05-13-2024 30 Normal [facility] 30 Normal [facility] 30 Normal [facility] BASIC METABOLIC PANELon 04-25 Anion gap [Moles/Vol] 13 mmol/L Normal 7-20 [facility] Comment on above: Performed By: #### L [id number] ####[facility] ([facility]AKER)[address] [place] [address] Calcium [Mass/Vol] 9.1 mg/dL Normal 8.6-10.3 [facility] Comment on above: Performed By: #### L [id number] ####[facility] ([facility]ER)[address] [place] [address] Chloride [Moles/Vol] 99 mmol/L Normal 98-107 [facility] Comment on above: Performed By: #### L [id number] ####[facility] ([facility]AKER)[address] [place] [address] CO2 [Moles/Vol] 29 mmol/L Normal 21-31 [facility] Comment on above: Performed By: #### L [id number] ####[facility] ([facility]AKER)[address] [place] [address] Creatinine [Mass/Vol] 1.29 mg/dL High 0.60-1.20 [facility] Comment on above: Performed By: #### L [id number] ####[facility] ([facility]ER)[address] [place] [place] [address] GLOMERULAR FILTRATION RATE ML/MIN/1.73 SQ M.PREDICTED 46.9 mL/min/1.73m*2 Low >60.0 [facility] Comment on above: Result Comment: [facility]???s estimated glomerular filtration rate (eGFR) will no [...] of individuals. Performed By: #### L [id number] ####[facility] ([facility])[address] [place] [address] Glucose [Mass/Vol] 135 mg/dL High 70-100 [facility] Comment on above: Performed By: #### L [id number] ####[facility] ([facility])[address] [place] [address] Potassium [Moles/Vol] 3.5 mmol/L Normal 3.5-5.1 [facility] Comment on above: Performed By: #### L [id number] ####[facility] ([facility])[address] [place] [address] Sodium [Moles/Vol] 137 mmol/L Normal 136-145 [facility] Comment on above: Performed By: #### L [id number] ####[facility] ([facility])[address] [place] [address] Urea nitrogen [Mass/Vol] 19 mg/dL Normal 7-25 [facility] Comment on above: Performed By: #### L [id number] ####[facility] [place] [address] UREA NITROGEN/CREATININE (MASS RATIO) IN SER/PLAS 14.7 Normal [facility] Comment on above: Performed By: #### L [id number] ####[facility] (BEAKER)[address] [place] [address] POCT GLUCOSE METER UNSOLICIT ED RESULTSon 05-13-2024 Glucose [Mass/Vol] 161 mg/dL High 70-105 [facility] Comment on above: Order Comment: Waive d Testing in the ED is performed under the ED CLIA certificate #[id number]. Result Comment: wcha se Performed By: #### L [id number] ####[facility] ([facility])[address] [place] [address] Glucose [Mass/Vol] 149 mg/dL High 70-105 [facility] Comment on above: Order Comment: Waive d Testing in the ED is performed under the ED CLIA certificate #[id number]. Result Comment: [email or web address] [email or web address] Performed By: #### L [id number] ####[facility] ([facility])[address] [place] [address] Glucose [Mass/Vol] 183 mg/dL High 70-105 [facility] Comment on above: Order Comment: Waive d Testing in the ED is performed under the ED CLIA certificate #[id number]. Result Comment: cfet [email or web address] Performed By: #### L [id number] ####[facility] ([facility])[address] [place] [address] Glucose [Mass/Vol] 141 mg/dL High 70-105 [facility] Comment on above: Order Comment: Waive d Testing in the ED is performed under the ED CLIA certificate #[id number]. Result Comment: cfet [email or web address] Performed By: #### L [id number] ####[facility] (BEAKER)[address] [place] [address] 30on 05-12-2024 30 Normal [facility] 30 Normal [facility] 30 Normal [facility] 30 Normal [facility] APTTon 05-12-2024 ACTIVATED PARTIAL THROMBOPLASTIN TIME IN PPP BY COAGULATION ASSAY 49.3 Seconds High 25.0-35.0 [facility] Comment on above: Order Comment: Check aPTT every 6 hours while on heparin infusion, or per protocol. Result Comment: Clin ical significance of the APTT is questionable in the presence of heparin. Performed By: #### L [id number] ####[facility] ([facility])[address] [place] [address] CBCon 05-12-2024 Erythrocyte distribution width (RBC) [Ratio] 13.9 % Normal 11.5-15.0 [facility] Comment on above: Performed By: #### L [id number] ####[facility] ([facility])[address] [place] [place] [address] ERYTHROCYTE MEAN CORPUSCULAR HEMOGLOBIN CONCENTRATION (G/DL) BY AUTOMATED 32.5 g/dL Normal 32.0-35.0 [facility] Comment on above: Performed By: #### L [id number] ####[facility] ([facility])[address] [place] [place] [address] Hematocrit (Bld) [Volume fraction] 41.8 % Normal 36.0-48.0 [facility] Comment on above: Performed By: #### L [id number] ####[facility] ([facility])[address] [place] [place] [address] Hemoglobin (Bld) [Mass/Vol] 13.6 g/dL Normal 12.0-15.0 [facility] Comment on above: Performed By: #### L [id number] ####[facility] ([facility])[address] [place] [place] [address] MCH (RBC) [Entitic mass] 28.9 pg Normal 27.0-33.0 [facility] Comment on above: Performed By: #### L [id number] ####[facility] ([facility])[address] [place] [place] [address] MCV (RBC) [Entitic vol] 88.9 fL Normal 82.0-98.0 [facility] Comment on above: Performed By: #### L [id number] ####[facility] ([facility])[address] [place] [place] [address] PLATELETS (10*3/UL) IN BLOOD AUTOMATED COUNT 254 10*3/uL Normal 150-400 [facility] Comment on above: Performed By: #### L [id number] ####[facility] ([facility])[address] [place] [place] [address] RBC (Bld) [#/Vol] 4.70 10*6/uL Normal 3.80-5.00 [facility] Comment on above: Performed By: #### L [id number] ####[facility] ([facility])[address] [place] [place] [address] WBC (Bld) [#/Vol] 6.18 10*3/uL Normal 4.00-10.60 [facility] Comment on above: Performed By: #### L [id number] ####[facility] ([facility])[address] [place] [place] [address] CONSULTon 05-12-2024 CONSULT Normal [facility] CONSULT Normal [facility] POCT GLUCOSE METER UNSOLICIT ED RESULTSon 05-12-2024 Glucose [Mass/Vol] 165 mg/dL High 70-105 [facility] Comment on above: Order Comment: Waive d Testing in the ED is performed under the ED CLIA certificate #[id number]. Result Comment: wcha se Performed By: #### L [id number] ####[facility] ([facility])[address] [place], [place] [address] Glucose [Mass/Vol] 183 mg/dL High 70-105 [facility] Comment on above: Order Comment: Waive d Testing in the ED is performed under the ED CLIA certificate #[id number]. Result Comment: cfet [email or web address] Performed By: #### L [id number] ####[facility] ([facility])[address] [place] [address] Glucose [Mass/Vol] 152 mg/dL High 70-105 [facility] Comment on above: Order Comment: Waive d Testing in the ED is performed under the ED CLIA certificate #[id number]. Result Comment: bflo od Performed By: #### L [id number] ####[facility] ([facility])[address] [place] [address] Glucose [Mass/Vol] 189 mg/dL High 70-105 [facility] Comment on above: Order Comment: Waive d Testing in the ED is performed under the ED CLIA certificate #[id number]. Result Comment: bflo od Performed By: #### L [id number] ####[facility] ([facility])[address] [place] [address] RESPIRATORY VIRUS PCR PANELo n 05-12-2024 ADENOVIRUS DETECTION BY PCR Not detected Normal Not Detected [facility] Comment on above: Order Comment: Testi ng methodology is a multiplexed nucleic acid test intended for the simultaneous qualitative detection and differentiation of nucleic acids from multiple viral and bacterial respiratory organisms in nasopharyngeal swabs (WET CLEANER MACHINE). Performed By: #### L [id number] ####[facility] ([facility])[address] [place] [address] B. PARAPERTUSSIS DNA Not detected Normal Not Detected [facility] Comment on above: Order Comment: Testi ng methodology is a multiplexed nucleic acid test intended for the simultaneous qualitative detection and differentiation of nucleic acids from multiple viral and bacterial respiratory organisms in nasopharyngeal swabs (WET CLEANER MACHINE). Performed By: #### L [id number] ####[facility] ([facility])[address] [place] [address] BORDETELLA PERTUSSIS DNA PRESENCE IN UNSPECIFIED SPECIMEN BY KS* Not detected Normal Not Detected [facility] Comment on above: Order Comment: Testi ng methodology is a multiplexed nucleic acid test intended for the simultaneous qualitative detection and differentiation of nucleic acids from multiple viral and bacterial respiratory organisms in nasopharyngeal swabs (WET CLEANER MACHINE). Performed By: #### L [id number] ####[facility] ([facility])[address] [place] [address] CHLAMYDOPHILA PNEUMONIAE Not detected Normal Not Detected [facility] Comment on above: Order Comment: Testi ng methodology is a multiplexed nucleic acid test intended for the simultaneous qualitative detection and differentiation of nucleic acids from multiple viral and bacterial respiratory organisms in nasopharyngeal swabs (WET CLEANER MACHINE). Performed By: #### L [id number] ####[facility] ([facility])[address] [place] [address] CORONAVIRUS [id number] Not detected Normal Not Detected [facility] Comment on above: Order Comment: Testi ng methodology is a multiplexed nucleic acid test intended for the simultaneous qualitative detection and differentiation of nucleic acids from multiple viral and bacterial respiratory organisms in nasopharyngeal swabs (WET CLEANER MACHINE). Performed By: #### L [id number] ####[facility] ([facility])[address] [place] [address] CORONAVIRUS [id number] Not detected Normal Not Detected [facility] Comment on above: Order Comment: Testi ng methodology is a multiplexed nucleic acid test intended for the simultaneous qualitative detection and differentiation of nucleic acids from multiple viral and bacterial respiratory organisms in nasopharyngeal swabs (WET CLEANER MACHINE). Performed By: #### L [id number] ####[facility] ([facility])[address] [place] [address] CORONAVIRUS [id number] Not detected Normal Not Detected [facility] Comment on above: Order Comment: Testi ng methodology is a multiplexed nucleic acid test intended for the simultaneous qualitative detection and differentiation of nucleic acids from multiple viral and bacterial respiratory organisms in nasopharyngeal swabs (WET CLEANER MACHINE). Performed By: #### L [id number] ####[facility] ([facility])[address] [place] [address] CORONAVIRUS [id number] Not detected Normal Not Detected [facility] Comment on above: Order Comment: Testi ng methodology is a multiplexed nucleic acid test intended for the simultaneous qualitative detection and differentiation of nucleic acids from multiple viral and bacterial respiratory organisms in nasopharyngeal swabs (WET CLEANER MACHINE). Performed By: #### L [id number] ####[facility] ([facility])[address] [place] [address] HUMAN METAPNEUMOVIRUS Not detected Normal Not Detected [facility] Comment on above: Order Comment: Testi ng methodology is a multiplexed nucleic acid test intended for the simultaneous qualitative detection and differentiation of nucleic acids from multiple viral and bacterial respiratory organisms in nasopharyngeal swabs (WET CLEANER MACHINE). Performed By: #### L [id number] ####[facility] ([facility])[address] [place] [address] HUMAN RHINOVIRUS+ENTEROVIRUS Not detected Normal Not Detected [facility] Comment on above: Order Comment: Testi ng methodology is a multiplexed nucleic acid test intended for the simultaneous qualitative detection and differentiation of nucleic acids from multiple viral and bacterial respiratory organisms in nasopharyngeal swabs (WET CLEANER MACHINE). Performed By: #### L [id number] ####[facility] ([facility])[address] [place] [address] INFLUENZA A Not detected Normal Not Detected [facility] Comment on above: Order Comment: Testi ng methodology is a multiplexed nucleic acid test intended for the simultaneous qualitative detection and differentiation of nucleic acids from multiple viral and bacterial respiratory organisms in nasopharyngeal swabs (WET CLEANER MACHINE). Performed By: #### L [id number] ####[facility] ([facility])[address] [place] [address] INFLUENZA B Not detected Normal Not Detected [facility] Comment on above: Order Comment: Testi ng methodology is a multiplexed nucleic acid test intended for the simultaneous qualitative detection and differentiation of nucleic acids from multiple viral and bacterial respiratory organisms in nasopharyngeal swabs (WET CLEANER MACHINE). Performed By: #### L [id number] ####[facility] ([facility])[address] [place] [address] MYCOPLASMA PNEUMONIAE Not detected Normal Not Detected [facility] Comment on above: Order Comment: Testi ng methodology is a multiplexed nucleic acid test intended for the simultaneous qualitative detection and differentiation of nucleic acids from multiple viral and bacterial respiratory organisms in nasopharyngeal swabs (WET CLEANER MACHINE). Performed By: #### L [id number] ####[facility] ([facility])[address] [place] [address] PARAINFLUENZA 1 Not detected Normal Not Detected [facility] Comment on above: Order Comment: Testi ng methodology is a multiplexed nucleic acid test intended for the simultaneous qualitative detection and differentiation of nucleic acids from multiple viral and bacterial respiratory organisms in nasopharyngeal swabs (WET CLEANER MACHINE). Performed By: #### L [id number] ####[facility] ([facility])[address] [place] [address] PARAINFLUENZA 2 Not detected Normal Not Detected [facility] Comment on above: Order Comment: Testi ng methodology is a multiplexed nucleic acid test intended for the simultaneous qualitative detection and differentiation of nucleic acids from multiple viral and bacterial respiratory organisms in nasopharyngeal swabs (WET CLEANER MACHINE). Performed By: #### L [id number] ####[facility] ([facility])[address] [place] [address] PARAINFLUENZA 3 Not detected Normal Not Detected [facility] Comment on above: Order Comment: Testi ng methodology is a multiplexed nucleic acid test intended for the simultaneous qualitative detection and differentiation of nucleic acids from multiple viral and bacterial respiratory organisms in nasopharyngeal swabs (WET CLEANER MACHINE). Performed By: #### L [id number] ####[facility] ([facility])[address] [place] [address] PARAINFLUENZA 4 Not detected Normal Not Detected [facility] Comment on above: Order Comment: Testi ng methodology is a multiplexed nucleic acid test intended for the simultaneous qualitative detection and differentiation of nucleic acids from multiple viral and bacterial respiratory organisms in nasopharyngeal swabs (WET CLEANER MACHINE). Performed By: #### L [id number] ####[facility] ([facility])[address] [place] [address] RESP SYNCYTIAL VIRUS Not detected Normal Not Detected [facility] Comment on above: Order Comment: Testi ng methodology is a multiplexed nucleic acid test intended for the simultaneous qualitative detection and differentiation of nucleic acids from multiple viral and bacterial respiratory organisms in nasopharyngeal swabs (WET CLEANER MACHINE). Performed By: #### L [id number] ####[facility] ([facility])[address] [place] [address] SARS-CoV-2 (COVID-19) RNA CITLALY+probe Ql (Unsp spec) Not detected Normal Not Detected [facility] Comment on above: Order Comment: Testi ng methodology is a multiplexed nucleic acid test intended for the simultaneous qualitative detection and differentiation of nucleic acids from multiple viral and bacterial respiratory organisms in nasopharyngeal swabs (WET CLEANER MACHINE). Performed By: #### L [id number] ####[facility] ([facility])[address] [place] [address] TROPONIN Ion 05-12-2024 Troponin I.cardiac [Mass/Vol] 0.03 ng/mL Normal 0.00-0.04 [facility] Comment on above: Performed By: #### L [id number] ####[facility] ([facility] [place] [address] Troponin I.cardiac [Mass/Vol] 0.04 ng/mL Normal 0.00-0.04 [facility] Comment on above: Performed By: #### L [id number] ####[facility] ([facility])[address] [place] [address] URINALYSIS MICROSCOPIC WITH REFLEX CULTUREon 05-12-2024 RBC (#/HPF) IN URINE SEDIMENT 3-5 Abnormal None Seen, 0-2 [facility] Comment on above: Performed By: #### L [id number] ####[facility] ([facility])[address] [place] [address] SQUAMOUS EPITHELIAL CELLS (#/LPF) IN URINE SEDIMENT Moderate Abnormal None Seen, Occasional, Few [facility] Comment on above: Performed By: #### L [id number] ####[facility] ([facility])[address] [place] [address] WBC (LEUKOCYTE) (#/HPF) IN URINE SEDIMENT 6-10 Abnormal None Seen, 0-2 [facility] Comment on above: Performed By: #### L [id number] ####[facility] ([facility])[address] [place] [address] URINALYSIS WITH REFLEX CULTU REon 05-12-2024 BILIRUBIN, TOTAL PRESENCE IN URINE Negative Normal Negative [facility] Comment on above: Performed By: #### L [id number] ####[facility] ([facility])[address] [place] [address] Clarity (U) Clear Normal Clear [facility] Comment on above: Performed By: #### L [id number] ####[facility] ([facility])[address] [place] [address] Color (U) Light-Yellow Normal Colorless, Yellow, Light-Yello w [facility] Comment on above: Performed By: #### L [id number] ####[facility] ([facility])[address] [place] [address] GLUCOSE (MG/DL) IN URINE Normal Normal Normal [facility] Comment on above: Performed By: #### L [id number] ####[facility] ([facility])[address] [place] [address] HEMOGLOBIN PRESENCE IN URINE Negative Normal Negative [facility] Comment on above: Performed By: #### L [id number] ####[facility] ([facility] [place] [address] Ketones Ql (U) Negative Normal Negative [facility] Comment on above: Performed By: #### L [id number] ####[facility] ([facility])[address] [place] [address] LEUKOCYTE ESTERASE PRESENCE IN URINE BY TEST STRIP Small Abnormal Negative [facility] Comment on above: Performed By: #### L [id number] ####[facility] ([facility])[address] [place] [address] NITRITE PRESENCE IN URINE Negative Normal Negative [facility] Comment on above: Performed By: #### L [id number] ####[facility] ([facility])[address] [place] [address] pH (U) 6.0 [pH] Normal 5.0-8.0 [facility] Comment on above: Performed By: #### L [id number] ####[facility] ([facility])[address] [place] [place] [address] Protein (U) [Mass/Vol] Negative Normal [facility]: Performed By: #### L [id number] ####[facility] ([facility])[address] [place] [address] Specific gravity (U) [Rel density] 1.015 Normal 1.010-1.030 [facility] Comment on above: Performed By: #### L [id number] ####[facility] ([facility] [place] [address] UROBILINOGEN (MG/DL) IN URINE Normal Normal Normal [facility] Comment on above: Performed By: #### L [id number] ####[facility] ([facility])[address] [place] [address] APTTon 05-11-2024 ACTIVATED PARTIAL THROMBOPLASTIN TIME IN PPP BY COAGULATION ASSAY 27.4 Seconds Normal 25.0-35.0 [facility] Comment on above: Order Comment: Basel ine aPTT before initiating heparin infusion. Result Comment: Clin ical significance of the APTT is questionable in the presence of heparin. Performed By: #### L [id number] ####[facility] ([facility])[address] [place] [address] Activated partial thrombopla stin time (aPTT) in platelet poor plasma by coagulation aon 05-11-2024 aPTT Coag (PPP) [Time] Activated partial thromboplastin time (aPTT) in platelet poor plasma by coagulation a 22.3-36.2 [facility] B-TYPE NATRIURETIC PEPTIDEon 05-11-2024 Natriuretic peptide B (Bld) [Mass/Vol] 537 pg/mL High 0-100 [facility] Comment on above: Performed By: #### L [id number] ####[facility] ([facility])[address] [place] [address] Basophils Auto (Bld) [#/Vol] on 05-11-2024 Basophils (Bld) [#/Vol] Automated basophil count 0.0-0.1 [facility] Basophils/100 WBC Auto (Bld) on 05-11-2024 Basophils/100 WBC (Bld) Automated basophil % 0.2-2.0 [facility] CBC WITH AUTO DIFFERENTIALon 05-11-2024 Basophils (Bld) [#/Vol] 0.10 10*3/uL Normal 0.00-0.20 [facility] Comment on above: Performed By: #### L [id number] ####[facility] ([email or web address])[address] [place] [address] Basophils/100 WBC (Bld) 1.3 % High 0.0-1.0 [facility] Comment on above: Performed By: #### L [id number] ####[facility] ([place])[address] [place] [address] Eosinophils (Bld) [#/Vol] 0.31 10*3/uL Normal 0.00-0.50 [facility] Comment on above: Performed By: #### L [id number] ####[facility] ([facility])[address] [place] [address] Eosinophils/100 WBC (Bld) 4.0 % Normal 0.0-6.0 [facility] Comment on above: Performed By: #### L [id number] ####[facility] ([facility] [place] [address] Erythrocyte distribution width (RBC) [Ratio] 13.9 % Normal 11.5-15.0 [facility] Comment on above: Performed By: #### L [id number] ####[facility] ([facility])[address] [place] [address] ERYTHROCYTE MEAN CORPUSCULAR HEMOGLOBIN CONCENTRATION (G/DL) BY AUTOMATED 33.7 g/dL Normal 32.0-35.0 [facility] Comment on above: Performed By: #### L [id number] ####[facility] ([facility])[address] [place] [address] Hematocrit (Bld) [Volume fraction] 41.6 % Normal 36.0-48.0 [facility] Comment on above: Performed By: #### L [id number] ####[facility] ([facility])[address] [place] [address] Hemoglobin (Bld) [Mass/Vol] 14.0 g/dL Normal 12.0-15.0 [facility] Comment on above: Performed By: #### L [id number] ####[facility] ([facility])[address] [place] [address] Immature granulocytes (Bld) [#/Vol] 0.03 10*3/uL Normal 0.00-0.20 [facility] Comment on above: Performed By: #### L [id number] ####[facility] ([facility])[address] [place] [address] Immature granulocytes/100 WBC (Bld) 0.4 % Normal 0.0-1.0 [facility] Comment on above: Performed By: #### L [id number] ####[facility] ([facility])[address] [place] [place] [address] Lymphocytes (Bld) [#/Vol] 2.25 10*3/uL Normal 1.20-4.00 [facility] Comment on above: Performed By: #### L [id number] ####[facility] ([facility])[address] [place] [place] [address] Lymphocytes/100 WBC (Bld) 29.3 % Normal 20.0-45.0 [facility] Comment on above: Performed By: #### L [id number] ####[facility] ([facility])[address] [place] [place] [address] MCH (RBC) [Entitic mass] 28.9 pg Normal 27.0-33.0 [facility] Comment on above: Performed By: #### L [id number] ####[facility] ([facility])[address] [place] [address] MCV (RBC) [Entitic vol] 86.0 fL Normal 82.0-98.0 [facility] Comment on above: Performed By: #### L [id number] ####[facility] ([facility])[address] [place] [address] Monocytes (Bld) [#/Vol] 0.50 10*3/uL Normal 0.10-1.00 [facility] Comment on above: Performed By: #### L [id number] ####[facility] ([facility])[address] [place] [place] [address] Monocytes/100 WBC (Bld) 6.5 % Normal 5.0-12.0 [facility] Comment on above: Performed By: #### L [id number] ####[facility] ([facility] [place] [place] [address] Neutrophils (Bld) [#/Vol] 4.50 10*3/uL Normal 1.60-7.60 [facility] Comment on above: Performed By: #### L [id number] ####[facility] ([facility])[address] [place] [place] [address] Neutrophils/100 WBC (Bld) 58.5 % Normal 40.0-72.0 [facility] Comment on above: Performed By: #### L [id number] ####[facility] ([facility] [place] [address] NRBC (PER 100 WBCS) BY AUTOMATED COUNT 0.0 % Normal 0 [facility] Comment on above: Performed By: #### L [id number] ####[facility] ([facility])[address] [place] [place] [address] PLATELETS (10*3/UL) IN BLOOD AUTOMATED COUNT 270 10*3/uL Normal 150-400 [facility] Comment on above: Performed By: #### L [id number] ####[facility] ([facility])[address] [place] [address] RBC (Bld) [#/Vol] 4.84 10*6/uL Normal 3.80-5.00 [facility] Comment on above: Performed By: #### L [id number] ####[facility] ([facility])[address] [place] [address] WBC (Bld) [#/Vol] 7.69 10*3/uL Normal 4.00-10.60 [facility] Comment on above: Performed By: #### L [id number] ####[facility] ([facility] [place] [place] [address] COMPREHENSIVE METABOLIC PANE Kirit 05-11-2024 Albumin [Mass/Vol] 4.1 g/dL Normal 3.5-5.7 [facility] Comment on above: Performed By: #### L [id number] ####[facility] ([facility])[address] [place] [place] [address] ALP [Catalytic activity/Vol] 128 U/L High 34-104 [facility] Comment on above: Performed By: #### L [id number] ####[facility] ([facility])[address] [place] [address] ALT [Catalytic activity/Vol] 13 U/L Normal 7-52 [facility] Comment on above: Performed By: #### L [id number] ####[facility] ([facility] [place] [address] Anion gap [Moles/Vol] 13 mmol/L Normal 7-20 [facility] Comment on above: Performed By: #### L [id number] ####[facility] ([facility])[address] [place] [address] AST [Catalytic activity/Vol] 18 U/L Normal 13-39 [facility] Comment on above: Performed By: #### L [id number] ####[facility] ([facility])[address] [place] [address] Bilirubin [Mass/Vol] 0.4 mg/dL Normal 0.3-1.0 [facility] Comment on above: Performed By: #### L [id number] ####[facility] ([facility])[address] [place] [address] Calcium [Mass/Vol] 8.9 mg/dL Normal 8.6-10.3 [facility] Comment on above: Performed By: #### L [id number] ####[facility] ([facility])[address] [place] [address] Chloride [Moles/Vol] 98 mmol/L Normal 98-107 [facility] Comment on above: Performed By: #### L [id number] ####[facility] ([facility] [place] [address] CO2 [Moles/Vol] 27 mmol/L Normal 21-31 [facility] Comment on above: Performed By: #### L [id number] ####[facility] ([facility])[address] [place] [address] Creatinine [Mass/Vol] 0.98 mg/dL Normal 0.60-1.20 [facility] Comment on above: Performed By: #### L [id number] ####[facility] ([facility])[address] [place] [address] GLOMERULAR FILTRATION RATE ML/MIN/1.73 SQ M.PREDICTED 65.3 mL/min/1.73m*2 Normal >60.0 [facility] Comment on above: Result Comment: [facility]???s estimated glomerular filtration rate (eGFR) will no [...] of individuals. Performed By: #### L [id number] ####[facility] ([facility])[address] [place] [place] [address] Glucose [Mass/Vol] 151 mg/dL High 70-100 [facility] Comment on above: Performed By: #### L [id number] ####[facility] ([facility])[address] [place] [place] [address] Potassium [Moles/Vol] 3.8 mmol/L Normal 3.5-5.1 [facility] Comment on above: Performed By: #### L [id number] ####[facility] ([facility])[address] [place] [address] Protein [Mass/Vol] 7.0 g/dL Normal 6.0-8.3 [facility] Comment on above: Performed By: #### L [id number] ####[facility] ([facility] [place] [address] Sodium [Moles/Vol] 134 mmol/L Low 136-145 [facility] Comment on above: Performed By: #### L [id number] ####[facility] ([facility])[address] [place] [address] Urea nitrogen [Mass/Vol] 16 mg/dL Normal 7-25 [facility] Comment on above: Performed By: #### L [id number] ####[facility] ([facility]ER)[address] [place] [address] UREA NITROGEN/CREATININE (MASS RATIO) IN SER/PLAS 16.3 Normal [facility] Comment on above: Performed By: #### L [id number] ####[facility] ([facility])[address] [place] [address] Eosinophils/100 WBC Auto (Bl d)on 05-11-2024 Eosinophils/100 WBC (Bld) Automated eosinophil % 0.9-7.0 [facility] Erythrocyte distribution wid th Auto (RBC) [Ratio]on 05-11-2024 Erythrocyte distribution width (RBC) [Ratio] Erythrocyte distribution width [Ratio] by Automated count 11.0-15.0 [facility] Estimated glomerular filtrat ion rate (GFR) non- Americanon 05-11-2024 GFR/1.73 sq M.predicted among non-blacks MDRD (S/P/Bld) [Vol rate/Area] Estimated glomerular filtration rate (GFR) non- Low >=60 mL/min/1.73 m 2 [facility] HPon 05-11-2024 HP Normal [facility] Hematocrit Auto (Bld) [Volum e fraction]on 05-11-2024 Hematocrit (Bld) [Volume fraction] Hematocrit [Volume Fraction] of Blood by Automated count 36.0-48.0 [facility] Hemoglobin [Mass/volume] in Bloodon 05-11-2024 Hemoglobin (Bld) [Mass/Vol] Hemoglobin [Mass/volume] in Blood 12.0-16.0 [facility] INR in Platelet poor plasma by Coagulation assayon 05-11-2024 INR Coag (PPP) [Relative time] INR in Platelet poor plasma by Coagulation assay [facility] Comment on above: DESIRED INR:2.0-3.0 CONDITIONS NOT LISTED BELOW2.5-3.5 FOR PROSTHETIC HEART VALVE REPLACEMENT2.5-3.5 RECURRENT THROMBOSIS Laboratory - Chemistry and C hemistry - challengeon 05-11-2024 Calcium [Mass/Vol] 9.2 mg/dL 8.5-10.1 [facility] Chloride [Moles/Vol] 103 mmol/L 98-107 [facility] CO2 [Moles/Vol] 30.0 mmol/L 21.0-32.0 [facility] Creatinine [Mass/Vol] 1.17 mg/dL High 0.55-1.02 [facility] GFR/1.73 sq M.predicted MDRD (S/P/Bld) [Vol rate/Area] 57 mL/min/{1.73_m2} Low >=60 mL/min/1.73 m 2 [facility] Glucose [Mass/Vol] 127 mg/dL High 74-106 [facility] Potassium [Moles/Vol] 3.7 mmol/L 3.5-5.1 [facility] Sodium [Moles/Vol] 139 mmol/L 136-145 [facility] Urea nitrogen [Mass/Vol] 15.0 mg/dL 7.0-18.0 [facility] Urea nitrogen/Creatinine [Mass ratio] 12.8 mg/mg [facility] Laboratory - Coagulationon 0 05-11-2024 aPTT Coag (Bld) [Time] 36.6 s Critically low 43.5-61.5 [facility] Comment on above: RESULTS CALLED TO GABBI ESPINOSA RN @BY Ruby Keith at 1902 Laboratory - Hematology and Cell countson 05-11-2024 Immature granulocytes/100 WBC (Bld) 0.3 % 0.0-0.5 [facility] Leukocytes [#/volume] correc [place] for nucleated erythrocytes in Blood by Automated counon 05-11-2024 WBC corrected for nucl RBC Auto (Bld) [#/Vol] Leukocytes [#/volume] corrected for nucleated erythrocytes in Blood by Automated coun 4.0-11.0 [facility] Lymphocytes Auto (Bld) [#/Vo l]on 05-11-2024 Lymphocytes (Bld) [#/Vol] Lymphocytes [#/volume] in Blood by Automated count 1.2-3.8 [facility] Lymphocytes/100 WBC Auto (Bl d)on 05-11-2024 Lymphocytes/100 WBC (Bld) Lymphocytes/100 leukocytes in Blood by Automated count 20.5-60.0 [facility] MAGNESIUMon 05-11-2024 Magnesium [Mass/Vol] 2.2 mg/dL Normal 1.9-2.7 [facility] Comment on above: Performed By: #### L [id number] ####[facility] ([facility]AKER)[address] [place] [address] MCH Auto (RBC) [Entitic mass ]on 05-11-2024 MCH (RBC) [Entitic mass] MCH [Entitic mass] by Automated count 26.7-34.0 [facility] MCHC Auto (RBC) [Mass/Vol]on 05-11-2024 MCHC (RBC) [Mass/Vol] MCHC [Mass/volume] by Automated count 29.9-35.2 [facility] MCV Auto (RBC) [Entitic vol] on 05-11-2024 MCV (RBC) [Entitic vol] MCV [Entitic volume] by Automated count 81.0-99.0 [facility] Monocytes Auto (Bld) [#/Vol] on 05-11-2024 Monocytes (Bld) [#/Vol] Automated blood monocyte count 0.3-0.8 [facility] Monocytes/100 WBC Auto (Bld) on 05-11-2024 Monocytes/100 WBC (Bld) Automated monocyte % 1.7-12.0 [facility] Neutrophils Auto (Bld) [#/Vo l]on 05-11-2024 Neutrophils (Bld) [#/Vol] Neutrophils [#/volume] in Blood by Automated count 1.4-6.5 [facility] Neutrophils/100 WBC Auto (Bl d)on 05-11-2024 Neutrophils/100 WBC (Bld) Automated neutrophil % 43.0-75.0 [facility] No Panel Informationon 05-11 Troponin I High Sensitivity 1036.8 pg/mL Critically high 4.0-51.3 [facility] Comment on above: RESULTS CALLED TO [...] Eosinophils # (Auto) 0.4 10 3/uL 0.0-0.7 [facility] Immature Granulocyte # (Auto) 0.02 10 3/uL 0.00-0.03 [facility] PHOSPHORUSon 05-11-2024 Magnesium [Mass/Vol] 3.1 mg/dL Normal 2.5-5.0 [facility] Comment on above: Performed By: #### L [id number] ####[facility] ([place])[address] [place] [address] POCT GLUCOSE METER UNSOLICIT ED RESULTSon 05-11-2024 Glucose [Mass/Vol] 163 mg/dL High 70-105 [facility] Comment on above: Order Comment: Waive d Testing in the ED is performed under the ED CLIA certificate #[id number]. Result Comment: mlad d3 Performed By: #### L [id number] ####[facility] ([place])[address] [place] [address] PROTIME-INRon 05-11-2024 INR IN PPP BY COAGULATION ASSAY 0.99 Normal 0.90-1.10 [facility] Comment on above: Result Comment: ACCC P [...] CHEST 1995;[id number]. Performed By: #### L [id number] ####[facility] ([facility])[address] [place] [address] PROTHROMBIN TIME (PT) IN PPP BY COAGULATION ASSAY 13.1 Seconds Normal 12.3-14.8 [facility] Comment on above: Performed By: #### L [id number] ####[facility] ([facility])[address] [place] [address] Platelet mean volume Auto (B ld) [Entitic vol]on 05-11-2024 Platelet mean volume (Bld) [Entitic vol] Platelet mean volume [Entitic volume] in Blood by Automated count 9.5-13.5 [facility] Platelets Auto (Bld) [#/Vol] on 05-11-2024 Platelets (Bld) [#/Vol] Platelets [#/volume] in Blood by Automated count 150-450 [facility] Prothrombin time (PT)on 04-24 PT Coag (PPP) [Time] Prothrombin time (PT) 9.0- 11.6 [facility] RBC Auto (Bld) [#/Vol]on RBC (Bld) [#/Vol] Erythrocytes [#/volu me] in Blood by Automated count 4.20-5.40 [facility] Serum or plasma anion gap de terminationon 05-11-2024 Anion gap [Moles/Vol] Serum or plasma an ion gap determination [facility] TROPONIN Ion 05-11-2024 Troponin I.cardiac [Mass/Vol] 0.06 ng/mL High 0.00-0.04 [facility] Comment on above: Performed By: #### L [id number] ####[facility] ([facility]AK[facility])[address] [place] [address] Basophils Auto (Bld) [#/Vol] on 02-17-2025 Basophils (Bld) [#/Vol] Automated basophil count 0.0-0.1 [facility] Basophils/100 WBC Auto (Bld) on 05-10-2024 Basophils/100 WBC (Bld) Automated basophil % 0.2-2.0 [facility] Eosinophils/100 WBC Auto (Bl d)on 05-10-2024 Eosinophils/100 WBC (Bld) Automated eosinophil % 0.9-7.0 [facility] Erythrocyte distribution wid th Auto (RBC) [Ratio]on 05-10-2024 Erythrocyte distribution width (RBC) [Ratio] Erythrocyte distribution width [Ratio] by Automated count 11.0-15.0 [facility] Estimated glomerular filtrat ion rate (GFR) non- Americanon 05-10-2024 GFR/1.73 sq M.predicted among non-blacks MDRD (S/P/Bld) [Vol rate/Area] Estimated glomerular filtration rate (GFR) non- Low >=60 mL/min/1.73 m 2 [facility] Globulin Calc (S) [Mass/Vol] on 05-10-2024 Globulin (S) [Mass/Vol] Serum globulin measurement by calculation (mass/volume) [facility] Hematocrit Auto (Bld) [Volum e fraction]on 05-10-2024 Hematocrit (Bld) [Volume fraction] Hematocrit [Volume Fraction] of Blood by Automated count 36.0-48.0 [facility] Hemoglobin [Mass/volume] in Bloodon 05-10-2024 Hemoglobin (Bld) [Mass/Vol] Hemoglobin [Mass/volume] in Blood 12.0-16.0 [facility] Laboratory - Chemistry and C hemistry - challengeon 05-10-2024 Albumin [Mass/Vol] 3.5 g/dL 3.4-5.0 [facility] ALP [Catalytic activity/Vol] 144 U/L High 46-116 [facility] ALT [Catalytic activity/Vol] 21 U/L 14-59 [facility] AST [Catalytic activity/Vol] 22 U/L 15-37 [facility] Bilirubin [Mass/Vol] 0.5 mg/dL 0.2-1.0 [facility] Calcium [Mass/Vol] 9.3 mg/dL 8.5-10.1 [facility] Chloride [Moles/Vol] 102 mmol/L 98-107 [facility] CO2 [Moles/Vol] 29.0 mmol/L 21.0-32.0 [facility] Creatinine [Mass/Vol] 1.17 mg/dL High 0.55-1.02 [facility] GFR/1.73 sq M.predicted MDRD (S/P/Bld) [Vol rate/Area] 57 mL/min/{1.73_m2} Low >=60 mL/min/1.73 m 2 [facility] Glucose [Mass/Vol] 142 mg/dL High 74-106 [facility] Natriuretic peptide B (Bld) [Mass/Vol] 1140.0 pg/mL High <=900.0 [facility] Potassium [Moles/Vol] 4.4 mmol/L 3.5-5.1 [facility] Protein [Mass/Vol] 7.4 g/dL 6.4-8.2 [facility] Sodium [Moles/Vol] 138 mmol/L 136-145 [facility] Urea nitrogen [Mass/Vol] 14.0 mg/dL 7.0-18.0 [facility] Urea nitrogen/Creatinine [Mass ratio] 12.0 mg/mg [facility] Laboratory - Hematology and Cell countson 05-10-2024 Immature granulocytes/100 WBC (Bld) 0.4 % 0.0-0.5 [facility] Leukocytes [#/volume] correc [place] for nucleated erythrocytes in Blood by Automated counon 05-10-2024 WBC corrected for nucl RBC Auto (Bld) [#/Vol] Leukocytes [#/volume] corrected for nucleated erythrocytes in Blood by Automated coun 4.0-11.0 [facility] Lymphocytes Auto (Bld) [#/Vo l]on 05-10-2024 Lymphocytes (Bld) [#/Vol] Lymphocytes [#/volume] in Blood by Automated count 1.2-3.8 [facility] Lymphocytes/100 WBC Auto (Bl d)on 05-10-2024 Lymphocytes/100 WBC (Bld) Lymphocytes/100 leukocytes in Blood by Automated count Low 20.5-60.0 [facility] MCH Auto (RBC) [Entitic mass ]on 05-10-2024 MCH (RBC) [Entitic mass] MCH [Entitic mass] by Automated count 26.7-34.0 [facility] MCHC Auto (RBC) [Mass/Vol]on 05-10-2024 MCHC (RBC) [Mass/Vol] MCHC [Mass/volume] by Automated count 29.9-35.2 [facility] MCV Auto (RBC) [Entitic vol] on 05-10-2024 MCV (RBC) [Entitic vol] MCV [Entitic volume] by Automated count 81.0-99.0 [facility] Monocytes Auto (Bld) [#/Vol] on 05-10-2024 Monocytes (Bld) [#/Vol] Automated blood monocyte count 0.3-0.8 [facility] Monocytes/100 WBC Auto (Bld) on 05-10-2024 Monocytes/100 WBC (Bld) Automated monocyte % 1.7-12.0 [facility] Neutrophils Auto (Bld) [#/Vo l]on 05-10-2024 Neutrophils (Bld) [#/Vol] Neutrophils [#/volume] in Blood by Automated count 1.4-6.5 [facility] Neutrophils/100 WBC Auto (Bl d)on 05-10-2024 Neutrophils/100 WBC (Bld) Automated neutrophil % 43.0-75.0 [facility] No Panel Informationon 05-10 Troponin I High Sensitivity 641.2 pg/mL Critically high 4.0-51.3 [facility] Comment on above: RESULTS CALLED TO [...] Eosinophils # (Auto) 0.4 10 3/uL 0.0-0.7 [facility] Immature Granulocyte # (Auto) 0.03 10 3/uL 0.00-0.03 [facility] Platelet mean volume Auto (B ld) [Entitic vol]on 05-10-2024 Platelet mean volume (Bld) [Entitic vol] Platelet mean volume [Entitic volume] in Blood by Automated count 9.5-13.5 [facility] Platelets Auto (Bld) [#/Vol] on 05-10-2024 Platelets (Bld) [#/Vol] Platelets [#/volume] in Blood by Automated count 150-450 [facility] RBC Auto (Bld) [#/Vol]on RBC (Bld) [#/Vol] Erythrocytes [#/volu me] in Blood by Automated count 4.20-5.40 [facility] Serum or plasma albumin/glob ulin mass ratioon 05-10-2024 Albumin/Globulin [Mass ratio] Serum or plasma albumin/globulin mass ratio [facility] Serum or plasma anion gap de terminationon 05-10-2024 Anion gap [Moles/Vol] Serum or plasma an ion gap determination [facility] 29on 02-19-2024 29 Addendum created 42 by Mario Bermudez MD Delete clinical note Normal [facility] 29 Addendum created 41 by Mario Bermudez MD Delete clinical note Normal [facility] 29on 01-22-2024 29 Addended by: PALMIRA CAUSEY on: 01/22/2024 02:27 PM Modules accepted: Orders Normal [facility] Orders Onlyon 01-22-2024 Orders Only Normal [facility] BASIC METABOLIC PANELon 10-2 Anion gap [Moles/Vol] 10 mmol/L Normal 7-20 [facility] Comment on above: Performed By: #### L [id number] ####[facility] ([facility])[address] [place] [address] Calcium [Mass/Vol] 8.6 mg/dL Normal 8.6-10.3 [facility] Comment on above: Performed By: #### L [id number] ####[facility] ([facility])[address] [place] [address] Chloride [Moles/Vol] 104 mmol/L Normal 98-107 [facility] Comment on above: Performed By: #### L [id number] ####[facility] [place] [place] [address] CO2 [Moles/Vol] 29 mmol/L Normal 21-31 [facility] Comment on above: Performed By: #### L [id number] ####[facility] [place] [place] [address] Creatinine [Mass/Vol] 0.91 mg/dL Normal 0.60-1.20 [facility] Comment on above: Performed By: #### L [id number] ####[facility] ([facility] [place] [place], [place] [address] GLOMERULAR FILTRATION RATE ML/MIN/1.73 SQ M.PREDICTED 71.3 mL/min/1.73m*2 Normal >60.0 [facility] Comment on above: Result Comment: [facility]???s estimated glomerular filtration rate (eGFR) will no [...] of individuals. Performed By: #### L [id number] ####[facility] [place] [address] Glucose [Mass/Vol] 150 mg/dL High 70-100 [facility] Comment on above: Performed By: #### L [id number] ####[facility] [place] [address] Potassium [Moles/Vol] 4.1 mmol/L Normal 3.5-5.1 [facility] Comment on above: Performed By: #### L [id number] ####[facility] ([facility])[address] [place] [address] Sodium [Moles/Vol] 139 mmol/L Normal 136-145 [facility] Comment on above: Performed By: #### L [id number] ####[facility] [place] [address] Urea nitrogen [Mass/Vol] 25 mg/dL Normal 7-25 [facility] Comment on above: Performed By: #### L [id number] ####[facility] [place] [address] UREA NITROGEN/CREATININE (MASS RATIO) IN SER/PLAS 27.5 Normal [facility] Comment on above: Performed By: #### L [id number] ####[facility] [place] [address] CBCon 01-12-2024 Erythrocyte distribution width (RBC) [Ratio] 15.6 % High 11.5-15.0 [facility] Comment on above: Performed By: #### L [id number] ####[facility] [place] [address] ERYTHROCYTE MEAN CORPUSCULAR HEMOGLOBIN CONCENTRATION (G/DL) BY AUTOMATED 31.9 g/dL Low 32.0-35.0 [facility] Comment on above: Performed By: #### L [id number] ####[facility] [place] [address] Hematocrit (Bld) [Volume fraction] 32.3 % Low 36.0-48.0 [facility] Comment on above: Performed By: #### L [id number] ####[facility] ([facility])[address] [place] [address] Hemoglobin (Bld) [Mass/Vol] 10.3 g/dL Low 12.0-15.0 [facility] Comment on above: Performed By: #### L [id number] ####[facility] ([facility])[address] [place] [address] MCH (RBC) [Entitic mass] 31.7 pg Normal 27.0-33.0 [facility] Comment on above: Performed By: #### L [id number] ####[facility] ([facility])[address] [place] [address] MCV (RBC) [Entitic vol] 99.4 fL High 82.0-98.0 [facility] Comment on above: Performed By: #### L [id number] ####[facility] ([facility])[address] [place] [address] PLATELETS (10*3/UL) IN BLOOD AUTOMATED COUNT 263 10*3/uL Normal 150-400 [facility] Comment on above: Performed By: #### L [id number] ####[facility] ([facility])[address] [place] [address] RBC (Bld) [#/Vol] 3.25 10*6/uL Low 3.80-5.00 [facility] Comment on above: Performed By: #### L [id number] ####[facility] ([facility])[address] [place], [place] [address] WBC (Bld) [#/Vol] 5.96 10*3/uL Normal 4.00-10.60 [facility] Comment on above: Performed By: #### L [id number] ####[facility] ([facility])[address] [place] [address] 37on 01-08-2024 37 Normal [facility] 36on 01-07-2024 36 Called patient to re mind her to have chest xray completed prior to her appointment tomorrow. Normal [facility] BASIC METABOLIC PANELon 12-22 Anion gap [Moles/Vol] 8 mmol/L Normal 7-20 [facility] Comment on above: Performed By: #### L [id number] ####[facility] ([facility])[address] [place] [address] Calcium [Mass/Vol] 8.4 mg/dL Low 8.6-10.3 [facility] Comment on above: Performed By: #### L [id number] ####[facility] ([facility])[address] [place] [address] Chloride [Moles/Vol] 108 mmol/L High 98-107 [facility] Comment on above: Performed By: #### L [id number] ####[facility] ([facility])[address] [place] [address] CO2 [Moles/Vol] 27 mmol/L Normal 21-31 [facility] Comment on above: Performed By: #### L [id number] ####[facility] ([facility])[address] [place] [address] Creatinine [Mass/Vol] 0.81 mg/dL Normal 0.60-1.20 [facility] Comment on above: Performed By: #### L [id number] ####[facility] ([facility])[address] [place] [address] GLOMERULAR FILTRATION RATE ML/MIN/1.73 SQ M.PREDICTED 82.0 mL/min/1.73m*2 Normal >60.0 [facility] Comment on above: Result Comment: [facility]???s estimated glomerular filtration rate (eGFR) will no [...] of individuals. Performed By: #### L [id number] ####[facility] ([facility])[address] [place] [address] Glucose [Mass/Vol] 106 mg/dL High 70-100 [facility] Comment on above: Performed By: #### L [id number] ####[facility] ([facility])[address] [place] [address] Potassium [Moles/Vol] 4.1 mmol/L Normal 3.5-5.1 [facility] Comment on above: Performed By: #### L [id number] ####[facility] ([facility]ER)[address] [place] [address] Sodium [Moles/Vol] 139 mmol/L Normal 136-145 [facility] Comment on above: Performed By: #### L [id number] ####[facility] ([facility])[address] [place] [place] [address] Urea nitrogen [Mass/Vol] 18 mg/dL Normal 7-25 [facility] Comment on above: Performed By: #### L [id number] ####[facility] ([facility])[address] [place] [place] [address] UREA NITROGEN/CREATININE (MASS RATIO) IN SER/PLAS 22.2 Normal [facility] Comment on above: Performed By: #### L [id number] ####[facility] ([facility])[address] [place] [address] CBCon 01-05-2024 Erythrocyte distribution width (RBC) [Ratio] 17.1 % High 11.5-15.0 [facility] Comment on above: Performed By: #### L [id number] ####[facility] ([facility])[address] [place] [address] ERYTHROCYTE MEAN CORPUSCULAR HEMOGLOBIN CONCENTRATION (G/DL) BY AUTOMATED 31.0 g/dL Low 32.0-35.0 [facility] Comment on above: Performed By: #### L [id number] ####[facility] ([facility])[address] [place] [address] Hematocrit (Bld) [Volume fraction] 32.6 % Low 36.0-48.0 [facility] Comment on above: Performed By: #### L [id number] ####[facility] ([facility])[address] [place] [address] Hemoglobin (Bld) [Mass/Vol] 10.1 g/dL Low 12.0-15.0 [facility] Comment on above: Performed By: #### L [id number] ####[facility] ([facility])[address] [place] [address] MCH (RBC) [Entitic mass] 32.1 pg Normal 27.0-33.0 [facility] Comment on above: Performed By: #### L [id number] ####[facility] ([facility])[address] [place] [address] MCV (RBC) [Entitic vol] 103.5 fL High 82.0-98.0 [facility] Comment on above: Performed By: #### L [id number] ####[facility] ([facility])[address] [place] [address] PLATELETS (10*3/UL) IN BLOOD AUTOMATED COUNT 371 10*3/uL Normal 150-400 [facility] Comment on above: Performed By: #### L [id number] ####[facility] ([facility])[address] [place] [address] RBC (Bld) [#/Vol] 3.15 10*6/uL Low 3.80-5.00 [facility] Comment on above: Performed By: #### L [id number] ####[facility] ([facility])[address] [place] [address] WBC (Bld) [#/Vol] 6.99 10*3/uL Normal 4.00-10.60 [facility] Comment on above: Performed By: #### L [id number] ####[facility] ([facility])[address] [place] [address] CBC WITH AUTO DIFFERENTIALon 12-31-2023 Basophils (Bld) [#/Vol] 0.07 10*3/uL Normal 0.00-0.20 [facility] Comment on above: Performed By: #### L [id number] ####[facility] ([facility])[address] [place] [address] Basophils/100 WBC (Bld) 1.1 % High 0.0-1.0 [facility] Comment on above: Performed By: #### L [id number] ####[facility] ([facility])[address] [place] [address] Eosinophils (Bld) [#/Vol] 0.39 10*3/uL Normal 0.00-0.50 [facility] Comment on above: Performed By: #### L [id number] ####[facility] ([facility])[address] [place] [address] Eosinophils/100 WBC (Bld) 6.3 % High 0.0-6.0 [facility] Comment on above: Performed By: #### L [id number] ####[facility] ([facility]ER)[address] [place] [address] Erythrocyte distribution width (RBC) [Ratio] 17.5 % High 11.5-15.0 [facility] Comment on above: Performed By: #### L [id number] ####[facility] ([facility])[address] [place] [address] ERYTHROCYTE MEAN CORPUSCULAR HEMOGLOBIN CONCENTRATION (G/DL) BY AUTOMATED 30.6 g/dL Low 32.0-35.0 [facility] Comment on above: Performed By: #### L [id number] ####[facility] ([facility]ER)[address] [place] [address] Hematocrit (Bld) [Volume fraction] 28.4 % Low 36.0-48.0 [facility] Comment on above: Performed By: #### L [id number] ####[facility] (BEAKER)[address] [place] [address] Hemoglobin (Bld) [Mass/Vol] 8.7 g/dL Low 12.0-15.0 [facility] Comment on above: Performed By: #### L [id number] ####[facility] (BEAKER)[address] [place] [address] Immature granulocytes (Bld) [#/Vol] 0.04 10*3/uL Normal 0.00-0.20 [facility] Comment on above: Performed By: #### L [id number] ####[facility] (BEAKER)[address] [place] [address] Immature granulocytes/100 WBC (Bld) 0.6 % Normal 0.0-1.0 [facility] Comment on above: Performed By: #### L [id number] ####[facility] (BEAKER)[address] [place] [address] Lymphocytes (Bld) [#/Vol] 1.24 10*3/uL Normal 1.20-4.00 [facility] Comment on above: Performed By: #### L [id number] ####[facility] (BEAKER)[address] [place] [address] Lymphocytes/100 WBC (Bld) 20.0 % Normal 20.0-45.0 [facility] Comment on above: Performed By: #### L [id number] ####[facility] (BEAKER)[address] [place] [address] MCH (RBC) [Entitic mass] 31.8 pg Normal 27.0-33.0 [facility] Comment on above: Performed By: #### L [id number] ####[facility] (BEAKER)[address] [place] [address] MCV (RBC) [Entitic vol] 103.6 fL High 82.0-98.0 [facility] Comment on above: Performed By: #### L [id number] ####[facility] (BEAKER)[address] [place] [address] Monocytes (Bld) [#/Vol] 0.35 10*3/uL Normal 0.10-1.00 [facility] Comment on above: Performed By: #### L [id number] ####[facility] (BEAKER)[address] [place] [address] Monocytes/100 WBC (Bld) 5.6 % Normal 5.0-12.0 [facility] Comment on above: Performed By: #### L [id number] ####[facility] ([facility])[address] [place] [place] [address] Neutrophils (Bld) [#/Vol] 4.12 10*3/uL Normal 1.60-7.60 [facility] Comment on above: Performed By: #### L [id number] ####[facility] ([facility])[address] [place] [address] Neutrophils/100 WBC (Bld) 66.4 % Normal 40.0-72.0 [facility] Comment on above: Performed By: #### L [id number] ####[facility] ([facility])[address] [place] [place] [address] NRBC (PER 100 WBCS) BY AUTOMATED COUNT 0.0 % Normal 0 [facility] Comment on above: Performed By: #### L [id number] ####[facility] ([facility])[address] [place] [place] [address] PLATELETS (10*3/UL) IN BLOOD AUTOMATED COUNT 405 10*3/uL High 150-400 [facility] Comment on above: Performed By: #### L [id number] ####[facility] ([facility])[address] [place] [address] RBC (Bld) [#/Vol] 2.74 10*6/uL Low 3.80-5.00 [facility] Comment on above: Performed By: #### L [id number] ####[facility] ([facility])[address] [place] [address] WBC (Bld) [#/Vol] 6.21 10*3/uL Normal 4.00-10.60 [facility] Comment on above: Performed By: #### L [id number] ####[facility] [place] [address] COMPREHENSIVE METABOLIC PANE Kirit 12-31-2023 Albumin [Mass/Vol] 3.2 g/dL Low 3.5-5.7 [facility] Comment on above: Performed By: #### L [id number] ####[facility] ([facility]ER)[address] [place] [address] ALP [Catalytic activity/Vol] 115 U/L High 34-104 [facility] Comment on above: Performed By: #### L [id number] ####[facility] (BEAKER)[address] [place] [address] ALT [Catalytic activity/Vol] 11 U/L Normal 7-52 [facility] Comment on above: Performed By: #### L [id number] ####[facility] (BEAKER)[address] [place] [address] Anion gap [Moles/Vol] 9 mmol/L Normal 7-20 [facility] Comment on above: Performed By: #### L [id number] ####[facility] (BEAKER)[address] [place] [address] AST [Catalytic activity/Vol] 19 U/L Normal 13-39 [facility] Comment on above: Performed By: #### L [id number] ####[facility] (BEAKER)[address] [place] [address] Bilirubin [Mass/Vol] 0.3 mg/dL Normal 0.3-1.0 [facility] Comment on above: Performed By: #### L [id number] ####[facility] (BEAKER)[address] [place] [address] Calcium [Mass/Vol] 8.5 mg/dL Low 8.6-10.3 [facility] Comment on above: Performed By: #### L [id number] ####[facility] ([facility]ER)[address] [place] [address] Chloride [Moles/Vol] 104 mmol/L Normal 98-107 [facility] Comment on above: Performed By: #### L [id number] ####[facility] ([facility]ER)[address] [place] [address] CO2 [Moles/Vol] 28 mmol/L Normal 21-31 [facility] Comment on above: Performed By: #### L [id number] ####[facility] ([facility])[address] [place] [place] [address] Creatinine [Mass/Vol] 0.66 mg/dL Normal 0.60-1.20 [facility] Comment on above: Performed By: #### L [id number] ####[facility] ([facility])[address] [place] [place] [address] GLOMERULAR FILTRATION RATE ML/MIN/1.73 SQ M.PREDICTED 99.1 mL/min/1.73m*2 Normal >60.0 [facility] Comment on above: Result Comment: [facility]???s estimated glomerular filtration rate (eGFR) will no [...] of individuals. Performed By: #### L [id number] ####[facility] ([facility])[address] [place] [place] [address] Glucose [Mass/Vol] 112 mg/dL High 70-100 [facility] Comment on above: Performed By: #### L [id number] ####[facility] ([facility])[address] [place] [place] [address] Potassium [Moles/Vol] 4.3 mmol/L Normal 3.5-5.1 [facility] Comment on above: Performed By: #### L [id number] ####[facility] ([facility])[address] [place] [place] [address] Protein [Mass/Vol] 5.7 g/dL Low 6.0-8.3 [facility] Comment on above: Performed By: #### L [id number] ####[facility] ([facility])[address] [place] [address] Sodium [Moles/Vol] 137 mmol/L Normal 136-145 [facility] Comment on above: Performed By: #### L [id number] ####[facility] ([facility])[address] [place] [place] [address] Urea nitrogen [Mass/Vol] 17 mg/dL Normal 7-25 [facility] Comment on above: Performed By: #### L [id number] ####[facility] ([facility])[address] [place] [address] UREA NITROGEN/CREATININE (MASS RATIO) IN SER/PLAS 25.8 [facility] Comment on above: Performed By: #### L [id number] ####[facility] ([facility])[address] [place] [place] [address] 30on 12-30-2023 30 [facility] 30 [facility] DSon 12-30-2023 DS [facility] Orders Onlyon 12-30-2023 Orders Only [facility] POCT GLUCOSE METER UNSOLICIT ED RESULTSon 12-30-2023 Glucose [Mass/Vol] 164 mg/dL High 70-105 [facility] Comment on above: Order Comment: Waive d Testing in the ED is performed under the ED CLIA certificate #[id number]. Result Comment: bflo od Performed By: #### L [id number] ####[facility] ([facility])[address] [facility] [place] [address] Glucose [Mass/Vol] 144 mg/dL High 70-105 [facility] Comment on above: Order Comment: Waive d Testing in the ED is performed under the ED CLIA certificate #[id number]. Result Comment: bflo od Performed By: #### L [id number] ####[facility] ([facility])[address] [place] [address] 30on 12-29-2023 30 [facility] 30 Normal [facility] 30 [facility] BASIC METABOLIC PANELon 10-0 Anion gap [Moles/Vol] 9 mmol/L Normal 7-20 [facility] Comment on above: Performed By: #### L [id number] ####[facility] [place] [place] [address] Calcium [Mass/Vol] 8.2 mg/dL Low 8.6-10.3 [facility] Comment on above: Performed By: #### L [id number] ####[facility] [place] [place] [address] Chloride [Moles/Vol] 103 mmol/L Normal 98-107 [facility] Comment on above: Performed By: #### L [id number] ####[facility] ([facility] [place] [place] [address] CO2 [Moles/Vol] 30 mmol/L Normal 21-31 [facility] Comment on above: Performed By: #### L [id number] ####[facility] [place] [place] [address] Creatinine [Mass/Vol] 0.69 mg/dL Normal 0.60-1.20 [facility] Comment on above: Performed By: #### L [id number] ####[facility] ([facility] [place] [place] [address] GLOMERULAR FILTRATION RATE ML/MIN/1.73 SQ M.PREDICTED 98.1 mL/min/1.73m*2 Normal >60.0 [facility] Comment on above: Result Comment: [facility]???s estimated glomerular filtration rate (eGFR) will no [...] of individuals. Performed By: #### L [id number] ####[facility] (BEAKER)[address] [place] [address] Glucose [Mass/Vol] 164 mg/dL High 70-100 [facility] Comment on above: Performed By: #### L [id number] ####[facility] (BEAKER)[address] [place] [address] Potassium [Moles/Vol] 4.1 mmol/L Normal 3.5-5.1 [facility] Comment on above: Performed By: #### L [id number] ####[facility] (BEAKER)[address] [place] [address] Sodium [Moles/Vol] 138 mmol/L Normal 136-145 [facility] Comment on above: Performed By: #### L [id number] ####[facility] (BEAKER)[address] [place] [address] Urea nitrogen [Mass/Vol] 13 mg/dL Normal 7-25 [facility] Comment on above: Performed By: #### L [id number] ####[facility] (BEAKER)[address] [place] [address] UREA NITROGEN/CREATININE (MASS RATIO) IN SER/PLAS 18.8 Normal [facility] Comment on above: Performed By: #### L [id number] ####[facility] (BEAKER)[address] [place] [address] CBCon 12-29-2023 Erythrocyte distribution width (RBC) [Ratio] 17.5 % High 11.5-15.0 [facility] Comment on above: Performed By: #### L [id number] ####[facility] (BEAKER)[address] [place] [address] ERYTHROCYTE MEAN CORPUSCULAR HEMOGLOBIN CONCENTRATION (G/DL) BY AUTOMATED 31.7 g/dL Low 32.0-35.0 [facility] Comment on above: Performed By: #### L [id number] ####[facility] (BEAKER)[address] [place] [address] Hematocrit (Bld) [Volume fraction] 26.2 % Low 36.0-48.0 [facility] Comment on above: Performed By: #### L [id number] ####[facility] ([facility])[address] [place] [address] Hemoglobin (Bld) [Mass/Vol] 8.3 g/dL Low 12.0-15.0 [facility] Comment on above: Performed By: #### L [id number] ####[facility] ([facility])[address] [place] [place] [address] MCH (RBC) [Entitic mass] 32.3 pg Normal 27.0-33.0 [facility] Comment on above: Performed By: #### L [id number] ####[facility] ([facility])[address] [place] [place] [address] MCV (RBC) [Entitic vol] 101.9 fL High 82.0-98.0 [facility] Comment on above: Performed By: #### L [id number] ####[facility] ([facility])[address] [place] [place] [address] PLATELETS (10*3/UL) IN BLOOD AUTOMATED COUNT 393 10*3/uL Normal 150-400 [facility] Comment on above: Performed By: #### L [id number] ####[facility] ([facility])[address] [place] [place] [address] RBC (Bld) [#/Vol] 2.57 10*6/uL Low 3.80-5.00 [facility] Comment on above: Performed By: #### L [id number] ####[facility] ([facility])[address] [place] [place] [address] WBC (Bld) [#/Vol] 6.00 10*3/uL Normal 4.00-10.60 [facility] Comment on above: Performed By: #### L [id number] ####[facility] ([facility] [place] [place] [address] FERRITINon 12-29-2023 FERRITIN (NG/ML) IN SER/PLAS 319.0 ng/mL High 11.0-307.0 [facility] Comment on above: Performed By: #### L [id number] ####[facility] ([facility])[address] [facility] [address] MAGNESIUMon 12-29-2023 Magnesium [Mass/Vol] 2.2 mg/dL Normal 1.9-2.7 [facility] Comment on above: Performed By: #### L [id number] ####[facility] ([facility])[address] [facility] [address] POCT GLUCOSE METER UNSOLICIT ED RESULTSon 12-29-2023 Glucose [Mass/Vol] 173 mg/dL High 70-105 [facility] Comment on above: Order Comment: Waive d Testing in the ED is performed under the ED CLIA certificate #[id number]. Result Comment: [email or web address] Performed By: #### L [id number] ####[facility] ([facility])[address] [facility] [address] Glucose [Mass/Vol] 133 mg/dL High 70-105 [facility] Comment on above: Order Comment: Waive d Testing in the ED is performed under the ED CLIA certificate #[id number]. Result Comment: [email or web address] Performed By: #### L [id number] ####[facility] ([facility])[address] [facility] [address] Glucose [Mass/Vol] 124 mg/dL High 70-105 [facility] Comment on above: Order Comment: Waive d Testing in the ED is performed under the ED CLIA certificate #[id number]. Result Comment: [email or web address] Performed By: #### L [id number] ####[facility] ([facility])[address] [place] [address] Glucose [Mass/Vol] 112 mg/dL High 70-105 [facility] Comment on above: Order Comment: Waive d Testing in the ED is performed under the ED CLIA certificate #[id number]. Result Comment: bflo od Performed By: #### L [id number] ####[facility] ([facility] [place] [address] 30on 12-28-2023 30 [facility] POCT GLUCOSE METER UNSOLICIT ED RESULTSon 12-28-2023 Glucose [Mass/Vol] 166 mg/dL High 70-105 [facility] Comment on above: Order Comment: Waive d Testing in the ED is performed under the ED CLIA certificate #[id number]. Result Comment: [email or web address] Performed By: #### L [id number] ####[facility] ([facility])[address] [place] [address] Glucose [Mass/Vol] 103 mg/dL Normal 70-105 [facility] Comment on above: Order Comment: Waive d Testing in the ED is performed under the ED CLIA certificate #[id number]. Result Comment: [email or web address] Performed By: #### L [id number] ####[facility] ([facility])[address] [place] [address] Glucose [Mass/Vol] 154 mg/dL High 70-105 [facility] Comment on above: Order Comment: Waive d Testing in the ED is performed under the ED CLIA certificate #[id number]. Result Comment: [email or web address] Performed By: #### L [id number] ####[facility] ([facility])[address] [place] [address] Glucose [Mass/Vol] 128 mg/dL High 70-105 [facility] Comment on above: Order Comment: Waive d Testing in the ED is performed under the ED CLIA certificate #[id number]. Result Comment: [email or web address] Performed By: #### L [id number] ####[facility] ([facility])[address] [place] [address] 30on 12-27-2023 30 [facility] 30 [facility] BASIC METABOLIC PANELon 10-0 Anion gap [Moles/Vol] 12 mmol/L Normal 7-20 [facility] Comment on above: Performed By: #### L [id number] ####[facility] ([facility]AKER)[address] [place] [address] Calcium [Mass/Vol] 8.1 mg/dL Low 8.6-10.3 [facility] Comment on above: Performed By: #### L [id number] ####[facility] (BEAKER)[address] [place] [address] Chloride [Moles/Vol] 104 mmol/L Normal 98-107 [facility] Comment on above: Performed By: #### L [id number] ####[facility] (BEAKER)[address] [place] [address] CO2 [Moles/Vol] 24 mmol/L Normal 21-31 [facility] Comment on above: Performed By: #### L [id number] ####[facility] (BEAKER)[address] [place] [address] Creatinine [Mass/Vol] 0.69 mg/dL Normal 0.60-1.20 [facility] Comment on above: Performed By: #### L [id number] ####[facility] [place] [address] GLOMERULAR FILTRATION RATE ML/MIN/1.73 SQ M.PREDICTED 98.1 mL/min/1.73m*2 Normal >60.0 [facility] Comment on above: Result Comment: [facility]???s estimated glomerular filtration rate (eGFR) will no [...] of individuals. Performed By: #### L [id number] ####[facility] (BEAKER)[address] [place] [address] Glucose [Mass/Vol] 107 mg/dL High 70-100 [facility] Comment on above: Performed By: #### L [id number] ####[facility] ([facility])[address] [place] [address] Potassium [Moles/Vol] 4.6 mmol/L Normal 3.5-5.1 [facility] Comment on above: Performed By: #### L [id number] ####[facility] ([facility])[address] [place] [address] Sodium [Moles/Vol] 135 mmol/L Low 136-145 [facility] Comment on above: Performed By: #### L [id number] ####[facility] ([facility])[address] [place] [place] [address] Urea nitrogen [Mass/Vol] 20 mg/dL Normal 7-25 [facility] Comment on above: Performed By: #### L [id number] ####[facility] ([facility])[address] [place] [address] UREA NITROGEN/CREATININE (MASS RATIO) IN SER/PLAS 29.0 Normal [facility] Comment on above: Performed By: #### L [id number] ####[facility] ([facility])[address] [place] [place] [address] CBCon 12-27-2023 Erythrocyte distribution width (RBC) [Ratio] 17.4 % High 11.5-15.0 [facility] Comment on above: Performed By: #### L [id number] ####[facility] ([facility])[address] [place] [address] ERYTHROCYTE MEAN CORPUSCULAR HEMOGLOBIN CONCENTRATION (G/DL) BY AUTOMATED 30.4 g/dL Low 32.0-35.0 [facility] Comment on above: Performed By: #### L [id number] ####[facility] [place] [address] Hematocrit (Bld) [Volume fraction] 28.3 % Low 36.0-48.0 [facility] Comment on above: Performed By: #### L [id number] ####[facility] (BEAKER)[address] [place] [address] Hemoglobin (Bld) [Mass/Vol] 8.6 g/dL Low 12.0-15.0 [facility] Comment on above: Performed By: #### L [id number] ####[facility] (BEAKER)[address] [address] IMMATURE PLATELET FRACTION % 0.5 % Low 0.8-6.3 [facility] Comment on above: Performed By: #### L [id number] ####[facility] (BEAKER)[address] [place] [address] MCH (RBC) [Entitic mass] 32.2 pg Normal 27.0-33.0 [facility] Comment on above: Performed By: #### L [id number] ####[facility] (BEAKER)[address] [place] [place] [address] MCV (RBC) [Entitic vol] 106.0 fL High 82.0-98.0 [facility] Comment on above: Performed By: #### L [id number] ####[facility] (BEAKER)[address] [place] [place] [address] Platelet mean volume (Bld) [Entitic vol] 8.9 fL Normal 7.5-11.5 [facility] Comment on above: Performed By: #### L [id number] ####[facility] (BEAKER)[address] [place] [address] PLATELETS (10*3/UL) IN BLOOD AUTOMATED COUNT 437 10*3/uL High 150-400 [facility] Comment on above: Performed By: #### L [id number] ####[facility] (BEAKER)[address] [place] [address] RBC (Bld) [#/Vol] 2.67 10*6/uL Low 3.80-5.00 [facility] Comment on above: Performed By: #### L [id number] ####[facility] (BEAKER)[address] [place] [address] WBC (Bld) [#/Vol] 7.03 10*3/uL Normal 4.00-10.60 [facility] Comment on above: Performed By: #### L [id number] ####[facility] ([facility])[address] [place] [address] MAGNESIUMon 12-27-2023 Magnesium [Mass/Vol] 2.5 mg/dL Normal 1.9-2.7 [facility] Comment on above: Performed By: #### L [id number] ####[facility] ([facility])[address] [place] [place] [address] POCT GLUCOSE METER UNSOLICIT ED RESULTSon 12-27-2023 Glucose [Mass/Vol] 100 mg/dL Normal 70-105 [facility] Comment on above: Order Comment: Waive d Testing in the ED is performed under the ED CLIA certificate #[id number]. Result Comment: [email or web address] Performed By: #### L [id number] ####[facility] ([facility])[address] [place], [place] [address] Glucose [Mass/Vol] 130 mg/dL High 70-105 [facility] Comment on above: Order Comment: Waive d Testing in the ED is performed under the ED CLIA certificate #[id number]. Result Comment: bflo od Performed By: #### L [id number] ####[facility] ([facility])[address] [place] [address] Glucose [Mass/Vol] 174 mg/dL High 70-105 [facility] Comment on above: Order Comment: Waive d Testing in the ED is performed under the ED CLIA certificate #[id number]. Result Comment: bflo od Performed By: #### L [id number] ####[facility] ([facility])[address] [place] [address] Glucose [Mass/Vol] 131 mg/dL High 70-105 [facility] Comment on above: Order Comment: Waive d Testing in the ED is performed under the ED CLIA certificate #[id number]. Result Comment: bflo od Performed By: #### L [id number] ####[facility] ([place])[address] [place], [place] [address] 30on 12-26-2023 30 Normal [facility] 30 [facility] POCT GLUCOSE METER UNSOLICIT ED RESULTSon 12-26-2023 Glucose [Mass/Vol] 144 mg/dL High 70-105 [facility] Comment on above: Order Comment: Waive d Testing in the ED is performed under the ED CLIA certificate #[id number]. Result Comment: [email or web address] Performed By: #### L [id number] ####[facility] ([facility])[address] [place] [address] Glucose [Mass/Vol] 161 mg/dL High 70-105 [facility] Comment on above: Order Comment: Waive d Testing in the ED is performed under the ED CLIA certificate #[id number]. Result Comment: [email or web address] Performed By: #### L [id number] ####[facility] ([facility])[address] [place] [address] Glucose [Mass/Vol] 118 mg/dL High 70-105 [facility] Comment on above: Order Comment: Waive d Testing in the ED is performed under the ED CLIA certificate #[id number]. Result Comment: [email or web address] Performed By: #### L [id number] ####[facility] [email or web address])[address] [place] [address] Glucose [Mass/Vol] 128 mg/dL High 70-105 [facility] Comment on above: Order Comment: Waive d Testing in the ED is performed under the ED CLIA certificate #[id number]. Result Comment: [email or web address] Performed By: #### L [id number] ####[facility] ([facility])[address] [place] [address] 30on 12-25-2023 30 The patient is Moder ately Stable - Low risk of patient condition declining or worsening The patient's goals for the shift include no pain The clinical goals for the shift include vss/pain control [facility] 30 [facility] NURSNOTEon 12-25-2023 NURSNOTE [facility] POCT GLUCOSE METER UNSOLICIT ED RESULTSon 12-25-2023 Glucose [Mass/Vol] 115 mg/dL High 70-105 [facility] Comment on above: Order Comment: Waive d Testing in the ED is performed under the ED CLIA certificate #[id number]. Result Comment: larry [email or web address] Performed By: #### L [id number] ####[facility] ([facility])[address] [place] [address] Glucose [Mass/Vol] 118 mg/dL High 70-105 [facility] Comment on above: Order Comment: Waive d Testing in the ED is performed under the ED CLIA certificate #[id number]. Result Comment: [email or web address] Performed By: #### L [id number] ####[facility] ([facility])[address] [place] [address] Glucose [Mass/Vol] 169 mg/dL High 70-105 [facility] Comment on above: Order Comment: Waive d Testing in the ED is performed under the ED CLIA certificate #[id number]. Result Comment: [email or web address] Performed By: #### L [id number] ####[facility] ([email or web address])[address] [facility] [address] Glucose [Mass/Vol] 126 mg/dL High 70-105 [facility] Comment on above: Order Comment: Waive d Testing in the ED is performed under the ED CLIA certificate #[id number]. Result Comment: [email or web address] Performed By: #### L [id number] ####[facility] ([facility])[address] [place] [address] 30on 12-24-2023 30 [facility] 30 The patient is Moder ately Stable - Low risk of patient condition declining or worsening The patient's goals for the shift include comfort The clinical goals for the shift include safety [facility] AFB CULTUREon 12-24-2023 AFB CULTURE No growth at 42 days Normal [facility] Comment on above: Performed By: #### L [id number] ####[facility] (BEAKER)[address] [place] [address] AFB STAIN No acid fast bacilli seen Normal [facility] Comment on above: Performed By: #### L [id number] ####[facility] [place] [address] AMYLASE, BODY FLUIDon 2023 AMYLASE (U/L) IN BODY FLUID <10 Normal [facility] Comment on above: Result Comment: The reference range and other method performance specifications have not been established for this test in fluids. the test result should be integrated into the clinical context for interpretation. Performed By: #### L [id number] ####[facility] ([facility])[address] [place] [address] BODY FLUID CELL DIFFERENTIAL on 12-24-2023 BASOPHILS TOTAL PER COUNTED LEUKOCYTES IN BODY FLUID BY MANUAL COUNT 2 Normal [facility] Comment on above: Order Comment: Diffe rential performed on cytospin Performed By: #### L [id number] ####[facility] ([facility])[address] [place] [address] CELLS COUNTED TOTAL (#) IN BODY FLUID 100 Normal [facility] Comment on above: Order Comment: Diffe rential performed on cytospin Performed By: #### L [id number] ####[facility] ([facility])[address] [place] [address] EOSINOPHILS TOTAL PER COUNTED LEUKOCYTES IN BODY FLUID BY MANUAL COUNT 4 Normal [facility] Comment on above: Order Comment: Diffe rential performed on cytospin Performed By: #### L [id number] ####[facility] (BEAKER)[address] [place] [address] LYMPHOCYTES TOTAL PER COUNTED LEUKOCYTES IN BODY FLUID BY MANUAL COUNT 9 Normal [facility] Comment on above: Order Comment: Diffe rential performed on cytospin Performed By: #### L [id number] ####[facility] ([facility]ER)[address] [place] [address] MESOTHELIAL CELLS TOTAL PER COUNTED LEUKOCYTES IN BODY FLUID BY MANUAL COUN 5 Normal [facility] Comment on above: Order Comment: Diffe rential performed on cytospin Performed By: #### L [id number] ####[facility] (BEAKER)[address] [place] [address] MONOCYTES+MACROPHAGES TOTAL PER COUNTED LEUKOCYTES IN BODY FLUID BY MANUAL [facility] Comment on above: Order Comment: Diffe rential performed on cytospin Performed By: #### L [id number] ####[facility] (AKER)[address] [place] [address] NEUTROPHILS TOTAL PER COUNTED LEUKOCYTES IN BODY FLUID BY MANUAL COUNT 80 Normal [facility] Comment on above: Order Comment: Diffe rential performed on cytospin Performed By: #### L [id number] ####[facility] ([facility])[address] [place] [address] OTHER CELLS BODY FLUID (MANUAL) [facility] Comment on above: Order Comment: Diffe rential performed on cytospin Performed By: #### L [id number] ####[facility] [place] [address] BODY FLUID CULTUREon 024 Bacteria identified Cx Nom (Unsp spec) No growth at 5 days [facility] Comment on above: Performed By: #### L [id number] ####[facility] (BEAKER)[address] [facility] [address] GRAM STAIN RESULT Normal [facility] Comment on above: Result Comment: Poly morphonuclear leukocytesNo organisms seenCytocentrifuge sample Performed By: #### L [id number] ####[facility] (BEAKER)[address] [place] [address] CHOLESTEROL, BODY FLUIDon CHOLESTEROL (MG/DL) IN BODY FLUID 37 mg/dL Normal [facility] Comment on above: Performed By: #### L [id number] ####[facility] (BEAKER)[address] [place] [address] CONSULTon 12-24-2023 CONSULT Normal [facility] FUNGAL CULTUREon 12-24-2023 FUNGAL SMEAR No yeast or fungal elements seen Normal [facility] Comment on above: Performed By: #### L [id number] ####[facility] ([facility])[address] [place] [address] GLUCOSE, BODY FLUIDon 2023 GLUCOSE (MG/DL) IN BODY FLUID 88 mg/dL Normal [facility] Comment on above: Result Comment: The reference range and other method performance specifications have not been established for this test in fluids. the test result should be integrated into the clinical context for interpretation. Performed By: #### L [id number] ####[facility] ([facility])[address] [place] [address] GLUCOSE, RANDOMon 12-24-2023 Glucose [Mass/Vol] 121 mg/dL High 70-100 [facility] Comment on above: Performed By: #### L [id number] ####[facility] ([facility])[address] [place] [address] HEPATIC FUNCTION PANELon Albumin [Mass/Vol] 3.4 g/dL Low 3.5-5.7 [facility] Comment on above: Performed By: #### L [id number] ####[facility] ([facility])[address] [place] [address] ALP [Catalytic activity/Vol] 133 U/L High 34-104 [facility] Comment on above: Performed By: #### L [id number] ####[facility] ([facility])[address] [place] [address] ALT [Catalytic activity/Vol] 22 U/L Normal 7-52 [facility] Comment on above: Performed By: #### L [id number] ####[facility] ([facility])[address] [place] [address] AST [Catalytic activity/Vol] 28 U/L Normal 13-39 [facility] Comment on above: Performed By: #### L [id number] ####[facility] ([facility])[address] [place] [place] [address] Bilirubin [Mass/Vol] 0.4 mg/dL Normal 0.3-1.0 [facility] Comment on above: Performed By: #### L [id number] ####[facility] ([facility])[address] [place] [place] [address] Magnesium [Mass/Vol] 0.1 mg/dL Normal 0-0.2 [facility] Comment on above: Performed By: #### L [id number] ####[facility] ([facility])[address] [place] [address] Protein [Mass/Vol] 6.1 g/dL Normal 6.0-8.3 [facility] Comment on above: Performed By: #### L [id number] ####[facility] ([facility])[address] [place] [place] [address] LACTATE DEHYDROGENASEon LACTATE DEHYDROGENASE (U/L) IN SER/PLAS BY LAC->PYR RXN 240 U/L Normal 140-271 [facility] Comment on above: Performed By: #### L [id number] ####[facility] ([facility])[address] [place] [place] [address] LACTATE DEHYDROGENASE, BODY FLUIDon 12-24-2023 LACTATE DEHYDROGENASE (U/L) IN BODY FLUID BY LAC->PYR 756 U/L Normal [facility] Comment on above: Result Comment: The reference range and other method performance specifications have not been established for this test in fluids. the test result should be integrated into the clinical context for interpretation. Performed By: #### L [id number] ####[facility] ([facility])[address] [place] [address] NON-RN OTOLARYNGOLOGY CYTOLOGY - CELLULAR EXAMon 12-24-2023 LAB AP CASE REPORT Normal [facility] Comment on above: Result Comment: Non- gynecologic Cytology Case: [id number] Provider: Rian Butts MD Collected: 12/24/2023 1626Ordering Location: [facility] Received: 12/25/2023 1238Pathologist: BRIANA Neripecimen: Pleural fluid, left Performed By: #### L [id number] ####[facility] ([facility]AKER)[address] [place] [address] LAB AP CLINICAL INFORMATION [facility] Comment on above: Result Comment: Left pleural effusion Performed By: #### L [id number] ####[facility] (BEAKER)[address] [place] [address] LAB AP GROSS DESCRIPTION [facility] Comment on above: Result Comment: 400 mL cloudy, red fluid Performed By: #### L [id number] ####[facility] (BEAKER)[address] [place] [address] LAB AP REPORT FINAL DIAGNOSIS NARRATIVE [facility] Comment on above: Result Comment: A. P leural fluid, left: - Negative for malignancy. - Marked acute inflammation. Performed By: #### L [id number] ####[facility] ([facility] [place] [address] PATHOLOGY REVIEWon PATHOLOGY REVIEW Reviewed. Normal [facility] Comment on above: Result Comment: Elec tronically signed by Jarrod Sales MD on 12/25/23 at 2:30 PM. Performed By: #### L [id number] ####[facility] (BEAKER)[address] [place] [address] POCT GLUCOSE METER UNSOLICIT ED RESULTSon 12-24-2023 Glucose [Mass/Vol] 176 mg/dL High 70-105 [facility] Comment on above: Order Comment: Waive d Testing in the ED is performed under the ED CLIA certificate #[id number]. Result Comment: [email or web address] Performed By: #### L [id number] ####[facility] (BEAKER)[address] [place] [address] Glucose [Mass/Vol] 135 mg/dL High 70-105 [facility] Comment on above: Order Comment: Waive d Testing in the ED is performed under the ED CLIA certificate #[id number]. Result Comment: [email or web address] Performed By: #### L [id number] ####[facility] ([email or web address])[address] [employer] [address] Glucose [Mass/Vol] 128 mg/dL High 70-105 [facility] Comment on above: Order Comment: Waive d Testing in the ED is performed under the ED CLIA certificate #[id number]. Result Comment: [email or web address] Performed By: #### L [id number] ####[facility] (BEAKER)[address] [place] [address] PROTEIN, BODY FLUIDon 2023 Protein (Body fld) [Mass/Vol] 3.6 g/dL Normal [facility] Comment on above: Result Comment: The reference range and other method performance specifications have not been established for this test in fluids. the test result should be integrated into the clinical context for interpretation. Performed By: #### L [id number] ####[facility] ([email or web address])[address] [place] [address] PROTIME-INRon 12-24-2023 INR IN PPP BY COAGULATION ASSAY 1.28 High 0.90-1.10 [facility] Comment on above: Result Comment: ACCC P [...] CHEST 1995;108:[id number]. Performed By: #### L [id number] ####[facility] ([facility])[address] [place] [address] PROTHROMBIN TIME (PT) IN PPP BY COAGULATION ASSAY 15.9 Seconds High 12.3-14.8 [facility] Comment on above: Performed By: #### L [id number] ####[facility] ([facility])[address] [place] [address] TRIGLYCERIDES, BODY FLUIDon 12-24-2023 TRIGLYCERIDES (MG/DL) IN BODY FLUID 25 mg/dL Normal [facility] Comment on above: Performed By: #### L [id number] ####[facility] (BEAKER)[address] [place] [address] VITAMIN Con 12-24-2023 VITAMIN C LEVEL 54 umol/L Normal 23-114 [facility] Comment on above: Result Comment: Rachael min C concentrations lower than 11 umol/L indicate deficiency.Concentrations between 11 and 23 umol/L are consistent with amoderate risk of deficiency due to inadequate tissue stores.Vitamin C concentration is reported as micromoles per liter(umol/L). To convert concentration to milligrams per deciliter(mg/dL), multiply the result by 0.0176.This test was developed and its performance characteristicsdetermined by [facility]. It has not been cleared orapproved by the [place] Food and Drug Administration. This test wasperformed in a CLIA certified laboratory and is intended forclinical purposes.Performed By: [facility] [place], [place] [email or web address] Director: Leeroy Shah MD, PhDCLIA Number: [id number] Performed By: #### L [id number] ####[facility] ([facility])[address] [place] [address] 30on 12-23-2023 30 Normal [facility] 30 Normal [facility] 30 Normal [facility] 30 The patient is Moder ately Stable - Low risk of patient condition declining or worsening The patient's goals for the shift include comfort The clinical goals for the shift include safety Normal [facility] BASIC METABOLIC PANELon 10-0 Anion gap [Moles/Vol] 9 mmol/L Normal 7-20 [facility] Comment on above: Performed By: #### L [id number] ####[facility] ([facility])[address] [place] [place] [address] Calcium [Mass/Vol] 7.9 mg/dL Low 8.6-10.3 [facility] Comment on above: Performed By: #### L [id number] ####[facility] [place] [address] Chloride [Moles/Vol] 105 mmol/L Normal 98-107 [facility] Comment on above: Performed By: #### L [id number] ####[facility] [place] [address] CO2 [Moles/Vol] 26 mmol/L Normal 21-31 [facility] Comment on above: Performed By: #### L [id number] ####[facility] ([facility] [place] [address] Creatinine [Mass/Vol] 0.71 mg/dL Normal 0.60-1.20 [facility] Comment on above: Performed By: #### L [id number] ####[facility] ([facility])[address] [place] [place] [address] GLOMERULAR FILTRATION RATE ML/MIN/1.73 SQ M.PREDICTED 96.1 mL/min/1.73m*2 Normal >60.0 [facility] Comment on above: Result Comment: [facility]???s estimated glomerular filtration rate (eGFR) will no [...] of individuals. Performed By: #### L [id number] ####[facility] ([facility])[address] [place] [address] Glucose [Mass/Vol] 76 mg/dL Normal 70-100 [facility] Comment on above: Performed By: #### L [id number] ####[facility] ([facility])[address] [facility] [address] Potassium [Moles/Vol] 4.4 mmol/L Normal 3.5-5.1 [facility] Comment on above: Performed By: #### L [id number] ####[facility] ([facility])[address] [facility] [address] Sodium [Moles/Vol] 136 mmol/L Normal 136-145 [facility] Comment on above: Performed By: #### L [id number] ####[facility] ([facility])[address] [facility] [address] Urea nitrogen [Mass/Vol] 17 mg/dL Normal 7-25 [facility] Comment on above: Performed By: #### L [id number] ####[facility] ([facility])[address] [place] [address] UREA NITROGEN/CREATININE (MASS RATIO) IN SER/PLAS 23.9 Normal [facility] Comment on above: Performed By: #### L [id number] ####[facility] ([facility])[address] [facility] [address] CBCon 12-23-2023 Erythrocyte distribution width (RBC) [Ratio] 15.7 % High 11.5-15.0 [facility] Comment on above: Performed By: #### L [id number] ####[facility] ([facility])[address] [facility] [address] ERYTHROCYTE MEAN CORPUSCULAR HEMOGLOBIN CONCENTRATION (G/DL) BY AUTOMATED 31.6 g/dL Low 32.0-35.0 [facility] Comment on above: Performed By: #### L [id number] ####[facility] (BEAKER)[address] [place] [address] Hematocrit (Bld) [Volume fraction] 22.5 % Low 36.0-48.0 [facility] Comment on above: Performed By: #### L [id number] ####[facility] (BEAKER)[address] [place] [address] Hemoglobin (Bld) [Mass/Vol] 7.1 g/dL Low 12.0-15.0 [facility] Comment on above: Performed By: #### L [id number] ####[facility] ([facility])[address] [place] [address] MCH (RBC) [Entitic mass] 32.0 pg Normal 27.0-33.0 [facility] Comment on above: Performed By: #### L [id number] ####[facility] ([facility])[address] [place] [address] MCV (RBC) [Entitic vol] 101.4 fL High 82.0-98.0 [facility] Comment on above: Performed By: #### L [id number] ####[facility] ([facility])[address] [place] [address] PLATELETS (10*3/UL) IN BLOOD AUTOMATED COUNT 355 10*3/uL Normal 150-400 [facility] Comment on above: Performed By: #### L [id number] ####[facility] [place] [address] RBC (Bld) [#/Vol] 2.22 10*6/uL Low 3.80-5.00 [facility] Comment on above: Performed By: #### L [id number] ####[facility] ([facility])[address] [place] [address] WBC (Bld) [#/Vol] 8.18 10*3/uL Normal 4.00-10.60 [facility] Comment on above: Performed By: #### L [id number] ####[facility] [place] [address] CT CHEST WO IV CONTRASTon CT CHEST WO IV CONTRAST Invalid Interpretation Code [facility] MAGNESIUMon 12-23-2023 Magnesium [Mass/Vol] 2.4 mg/dL Normal 1.9-2.7 [facility] Comment on above: Performed By: #### L [id number] ####[facility] ([facility])[address] [place] [address] POCT GLUCOSE METER UNSOLICIT ED RESULTSon 12-23-2023 Glucose [Mass/Vol] 143 mg/dL High 70-105 [facility] Comment on above: Order Comment: Waive d Testing in the ED is performed under the ED CLIA certificate #[id number]. Result Comment: larry morrow Performed By: #### L [id number] ####[facility] ([facility])[address] [place] [address] Glucose [Mass/Vol] 159 mg/dL High 70-105 [facility] Comment on above: Order Comment: Waive d Testing in the ED is performed under the ED CLIA certificate #[id number]. Result Comment: shelby [email or web address] Performed By: #### L [id number] ####[facility] ([facility])[address] [facility] [address] Glucose [Mass/Vol] 130 mg/dL High 70-105 [facility] Comment on above: Order Comment: Waive d Testing in the ED is performed under the ED CLIA certificate #[id number]. Result Comment: [email or web address] Performed By: #### L [id number] ####[facility] [email or web address])[address] [place] [address] Glucose [Mass/Vol] 118 mg/dL High 70-105 [facility] Comment on above: Order Comment: Waive d Testing in the ED is performed under the ED CLIA certificate #[id number]. Result Comment: [email or web address] Performed By: #### L [id number] ####[facility] ([facility])[address] [place] [address] VITAMIN Con 12-23-2023 VITAMIN C LEVEL 43 umol/L Normal 23-114 [facility] Comment on above: Result Comment: Rachael min C concentrations lower than 11 umol/L indicate deficiency.Concentrations between 11 and 23 umol/L are consistent with amoderate risk of deficiency due to inadequate tissue stores.Vitamin C concentration is reported as micromoles per liter(umol/L). To convert concentration to milligrams per deciliter(mg/dL), multiply the result by 0.0176.This test was developed and its performance characteristicsdetermined by [facility]. It has not been cleared orapproved by the [place] Food and Drug Administration. This test wasperformed in a CLIA certified laboratory and is intended forclinical purposes.Performed By: [facility] [place], [place] [address]Sfhmekzabu Director: Leeroy Shah MD, PhDCLIA Number: [id number] Performed By: #### L [id number] ####[facility] ([facility])[address] [place] [address] 30on 12-22-2023 30 Normal [facility] 30 Normal [facility] 30 The patient is Moder ately Stable - Low risk of patient condition declining or worsening The patient's goals for the shift include comfort The clinical goals for the shift include safety Normal [facility] BASIC METABOLIC PANELon 11-24 Anion gap [Moles/Vol] 11 mmol/L Normal 7-20 [facility] Comment on above: Performed By: #### L [id number] ####[facility] ([facility])[address] [place] [address] Calcium [Mass/Vol] 8.2 mg/dL Low 8.6-10.3 [facility] Comment on above: Performed By: #### L [id number] ####[facility] ([facility])[address] [place] [address] Chloride [Moles/Vol] 103 mmol/L Normal 98-107 [facility] Comment on above: Performed By: #### L [id number] ####[facility] ([facility])[address] [place] [address] CO2 [Moles/Vol] 28 mmol/L Normal 21-31 [facility] Comment on above: Performed By: #### L [id number] ####[facility] ([facility])[address] [place] [address] Creatinine [Mass/Vol] 0.71 mg/dL Normal 0.60-1.20 [facility] Comment on above: Performed By: #### L [id number] ####[facility] ([facility])[address] [place] [address] GLOMERULAR FILTRATION RATE ML/MIN/1.73 SQ M.PREDICTED 96.1 mL/min/1.73m*2 Normal >60.0 [facility] Comment on above: Result Comment: [facility]???s estimated glomerular filtration rate (eGFR) will no [...] of individuals. Performed By: #### L [id number] ####[facility] ([facility])[address] [place] [address] Glucose [Mass/Vol] 103 mg/dL High 70-100 [facility] Comment on above: Performed By: #### L [id number] ####[facility] ([facility])[address] [place] [address] Potassium [Moles/Vol] 3.7 mmol/L Normal 3.5-5.1 [facility] Comment on above: Performed By: #### L [id number] ####[facility] ([facility])[address] [place] [address] Sodium [Moles/Vol] 138 mmol/L Normal 136-145 [facility] Comment on above: Performed By: #### L [id number] ####[facility] ([facility])[address] [place] [address] Urea nitrogen [Mass/Vol] 16 mg/dL Normal 7-25 [facility] Comment on above: Performed By: #### L [id number] ####[facility] ([facility])[address] [place] [address] UREA NITROGEN/CREATININE (MASS RATIO) IN SER/PLAS 22.5 Normal [facility] Comment on above: Performed By: #### L [id number] ####[facility] ([facility])[address] [place] [address] CBCon 12-22-2023 Erythrocyte distribution width (RBC) [Ratio] 14.5 % Normal 11.5-15.0 [facility] Comment on above: Performed By: #### L [id number] ####[facility] ([facility])[address] [place] [address] ERYTHROCYTE MEAN CORPUSCULAR HEMOGLOBIN CONCENTRATION (G/DL) BY AUTOMATED 31.5 g/dL Low 32.0-35.0 [facility] Comment on above: Performed By: #### L [id number] ####[facility] ([facility])[address] [place] [address] Hematocrit (Bld) [Volume fraction] 25.1 % Low 36.0-48.0 [facility] Comment on above: Performed By: #### L [id number] ####[facility] ([facility])[address] [place] [address] Hemoglobin (Bld) [Mass/Vol] 7.9 g/dL Low 12.0-15.0 [facility] Comment on above: Performed By: #### L [id number] ####[facility] ([facility])[address] [place] [address] MCH (RBC) [Entitic mass] 32.1 pg Normal 27.0-33.0 [facility] Comment on above: Performed By: #### L [id number] ####[facility] ([facility])[address] [place] [address] MCV (RBC) [Entitic vol] 102.0 fL High 82.0-98.0 [facility] Comment on above: Performed By: #### L [id number] ####[facility] ([facility])[address] [place] [address] PLATELETS (10*3/UL) IN BLOOD AUTOMATED COUNT 338 10*3/uL Normal 150-400 [facility] Comment on above: Performed By: #### L [id number] ####[facility] ([facility])[address] [place] [address] RBC (Bld) [#/Vol] 2.46 10*6/uL Low 3.80-5.00 [facility] Comment on above: Performed By: #### L [id number] ####[facility] ([facility])[address] [place] [address] WBC (Bld) [#/Vol] 7.31 10*3/uL Normal 4.00-10.60 [facility] Comment on above: Performed By: #### L [id number] ####[facility] ([facility])[address] [place] [address] MAGNESIUMon 12-22-2023 Magnesium [Mass/Vol] 2.2 mg/dL Normal 1.9-2.7 [facility] Comment on above: Performed By: #### L [id number] ####[facility] ([facility])[address] [place] [address] POCT GLUCOSE METER UNSOLICIT ED RESULTSon 12-22-2023 Glucose [Mass/Vol] 158 mg/dL High 70-105 [facility] Comment on above: Order Comment: Waive d Testing in the ED is performed under the ED CLIA certificate #[id number]. Result Comment: [email or web address] Performed By: #### L [id number] ####[facility] ([facility])[address] [place] [address] Glucose [Mass/Vol] 129 mg/dL High 70-105 [facility] Comment on above: Order Comment: Waive d Testing in the ED is performed under the ED CLIA certificate #[id number]. Result Comment: [email or web address] Performed By: #### L [id number] ####[facility] ([facility])[address] [address] Glucose [Mass/Vol] 175 mg/dL High 70-105 [facility] Comment on above: Order Comment: Waive d Testing in the ED is performed under the ED CLIA certificate #[id number]. Result Comment: [email or web address] Performed By: #### L [id number] ####[facility] ([facility])[address] [address] Glucose [Mass/Vol] 100 mg/dL Normal 70-105 [facility] Comment on above: Order Comment: Waive d Testing in the ED is performed under the ED CLIA certificate #[id number]. Result Comment: [email or web address] Performed By: #### L [id number] ####[facility] ([facility])[address] [place] [address] VITAMIN Con 12-22-2023 VITAMIN C LEVEL 35 umol/L Normal 23-114 [facility] Comment on above: Result Comment: Rachael min C concentrations lower than 11 umol/L indicate deficiency.Concentrations between 11 and 23 umol/L are consistent with amoderate risk of deficiency due to inadequate tissue stores.Vitamin C concentration is reported as micromoles per liter(umol/L). To convert concentration to milligrams per deciliter(mg/dL), multiply the result by 0.0176.This test was developed and its performance characteristicsdetermined by [facility]. It has not been cleared orapproved by the [place] Food and Drug Administration. This test wasperformed in a CLIA certified laboratory and is intended forclinical purposes.Performed By: [facility] [place] [id number] Director: Leeroy Shah MD, PhDCLIA Number: [id number] Performed By: #### L [id number] ####[facility] ([facility])[address] [place] [address] 30on 12-21-2023 30 Normal [facility] 30 Normal [facility] BASIC METABOLIC PANELon 11-23 Anion gap [Moles/Vol] 11 mmol/L Normal 7-20 [facility] Comment on above: Performed By: #### L [id number] ####[facility] ([facility])[address] [place] [address] Calcium [Mass/Vol] 8.0 mg/dL Low 8.6-10.3 [facility] Comment on above: Performed By: #### L [id number] ####[facility] ([facility])[address] [place] [address] Chloride [Moles/Vol] 104 mmol/L Normal 98-107 [facility] Comment on above: Performed By: #### L [id number] ####[facility] ([facility])[address] [place] [address] CO2 [Moles/Vol] 26 mmol/L Normal 21-31 [facility] Comment on above: Performed By: #### L [id number] ####[facility] ([facility])[address] [place] [address] Creatinine [Mass/Vol] 0.62 mg/dL Normal 0.60-1.20 [facility] Comment on above: Performed By: #### L [id number] ####[facility] ([facility])[address] [place] [address] GLOMERULAR FILTRATION RATE ML/MIN/1.73 SQ M.PREDICTED 100.6 mL/min/1.73m*2 Normal >60.0 [facility] Comment on above: Result Comment: [facility]???s estimated glomerular filtration rate (eGFR) will no [...] of individuals. Performed By: #### L [id number] ####[facility] ([facility])[address] [place] [address] Glucose [Mass/Vol] 93 mg/dL Normal 70-100 [facility] Comment on above: Performed By: #### L [id number] ####[facility] ([facility])[address] [place] [address] Potassium [Moles/Vol] 4.2 mmol/L Normal 3.5-5.1 [facility] Comment on above: Performed By: #### L [id number] ####[facility] ([facility])[address] [place] [address] Sodium [Moles/Vol] 137 mmol/L Normal 136-145 [facility] Comment on above: Performed By: #### L [id number] ####[facility] ([facility])[address] [place] [address] Urea nitrogen [Mass/Vol] 17 mg/dL Normal 7-25 [facility] Comment on above: Performed By: #### L [id number] ####[facility] ([facility])[address] [place] [address] UREA NITROGEN/CREATININE (MASS RATIO) IN SER/PLAS 27.4 Normal [facility] Comment on above: Performed By: #### L [id number] ####[facility] ([facility])[address] [place] [address] CBCon 12-21-2023 Erythrocyte distribution width (RBC) [Ratio] 14.2 % Normal 11.5-15.0 [facility] Comment on above: Performed By: #### L [id number] ####[facility] ([facility])[address] [place] [address] ERYTHROCYTE MEAN CORPUSCULAR HEMOGLOBIN CONCENTRATION (G/DL) BY AUTOMATED 31.1 g/dL Low 32.0-35.0 [facility] Comment on above: Performed By: #### L [id number] ####[facility] ([facility])[address] [place] [address] Hematocrit (Bld) [Volume fraction] 21.9 % Low 36.0-48.0 [facility] Comment on above: Performed By: #### L [id number] ####[facility] ([facility])[address] [place] [address] Hemoglobin (Bld) [Mass/Vol] 6.8 g/dL Low 12.0-15.0 [facility] Comment on above: Performed By: #### L [id number] ####[facility] ([facility])[address] [place] [address] MCH (RBC) [Entitic mass] 31.1 pg Normal 27.0-33.0 [facility] Comment on above: Performed By: #### L [id number] ####[facility] ([facility])[address] [place] [address] MCV (RBC) [Entitic vol] 100.0 fL High 82.0-98.0 [facility] Comment on above: Performed By: #### L [id number] ####[facility] ([facility])[address] [place] [address] PLATELETS (10*3/UL) IN BLOOD AUTOMATED COUNT 300 10*3/uL Normal 150-400 [facility] Comment on above: Performed By: #### L [id number] ####[facility] ([facility])[address] [place] [address] RBC (Bld) [#/Vol] 2.19 10*6/uL Low 3.80-5.00 [facility] Comment on above: Performed By: #### L [id number] ####[facility] ([facility])[address] [place] [address] WBC (Bld) [#/Vol] 6.04 10*3/uL Normal 4.00-10.60 [facility] Comment on above: Performed By: #### L [id number] ####[facility] ([facility])[address] [place] [address] MAGNESIUMon 12-21-2023 Magnesium [Mass/Vol] 2.3 mg/dL Normal 1.9-2.7 [facility] Comment on above: Performed By: #### L [id number] ####[facility] ([facility])[address] [place] [address] POCT GLUCOSE METER UNSOLICIT ED RESULTSon 12-21-2023 Glucose [Mass/Vol] 189 mg/dL High 70-105 [facility] Comment on above: Order Comment: Waive d Testing in the ED is performed under the ED CLIA certificate #[id number]. Result Comment: [email or web address] Performed By: #### L [id number] ####[facility] ([facility])[address] [place] [address] Glucose [Mass/Vol] 85 mg/dL Normal 70-105 [facility] Comment on above: Order Comment: Waive d Testing in the ED is performed under the ED CLIA certificate #[id number]. Result Comment: [email or web address] Performed By: #### L [id number] ####[facility] ([facility])[address] [place] [address] Glucose [Mass/Vol] 229 mg/dL High 70-105 [facility] Comment on above: Order Comment: Waive d Testing in the ED is performed under the ED CLIA certificate #[id number]. Result Comment: [email or web address] Performed By: #### L [id number] ####[facility] ([facility])[address] [place] [address] Glucose [Mass/Vol] 142 mg/dL High 70-105 [facility] Comment on above: Order Comment: Waive d Testing in the ED is performed under the ED CLIA certificate #[id number]. Result Comment: [email or web address] Performed By: #### L [id number] ####[facility] ([facility])[address] [place] [address] VITAMIN Con 12-21-2023 VITAMIN C LEVEL 24 umol/L Normal 23-114 [facility] Comment on above: Result Comment: Rachael min C concentrations lower than 11 umol/L indicate deficiency.Concentrations between 11 and 23 umol/L are consistent with amoderate risk of deficiency due to inadequate tissue stores.Vitamin C concentration is reported as micromoles per liter(umol/L). To convert concentration to milligrams per deciliter(mg/dL), multiply the result by 0.0176.This test was developed and its performance characteristicsdetermined by [facility]. It has not been cleared orapproved by the [place] Food and Drug Administration. This test wasperformed in a CLIA certified laboratory and is intended forclinical purposes.Performed By: [facility] [place] [id number] Director: Leeroy Shah MD, PhDCLIA Number: [id number] Performed By: #### L [id number] ####[facility] ([facility])[address] [place] [address] MAGNESIUMon 12-20-2023 Magnesium [Mass/Vol] 2.2 mg/dL Normal 1.9-2.7 [facility] Comment on above: Performed By: #### L [id number] ####[facility] ([facility])[address] [place] [address] POCT GLUCOSE METER UNSOLICIT ED RESULTSon 12-20-2023 Glucose [Mass/Vol] 140 mg/dL High 70-105 [facility] Comment on above: Order Comment: Waive d Testing in the ED is performed under the ED CLIA certificate #[id number]. Result Comment: [email or web address] Performed By: #### L [id number] ####[facility] ([facility])[address] [place] [address] Glucose [Mass/Vol] 152 mg/dL High 70-105 [facility] Comment on above: Order Comment: Waive d Testing in the ED is performed under the ED CLIA certificate #[id number]. Result Comment: [email or web address] dic Performed By: #### L [id number] ####[facility] ([facility])[address] [place] [address] Glucose [Mass/Vol] 193 mg/dL High 70-105 [facility] Comment on above: Order Comment: Waive d Testing in the ED is performed under the ED CLIA certificate #[id number]. Result Comment: [email or web address] dic Performed By: #### L [id number] ####[facility] ([facility])[address] [place] [address] Glucose [Mass/Vol] 119 mg/dL High 70-105 [facility] Comment on above: Order Comment: Waive d Testing in the ED is performed under the ED CLIA certificate #[id number]. Result Comment: [email or web address] dic Performed By: #### L [id number] ####[facility] ([facility])[address] [place] [address] 30on 12-19-2023 30 The patient is Moder ately Stable - Low risk of patient condition declining or worsening The patient's goals for the shift include comfort The clinical goals for the shift include safety Normal [facility] 30 Normal [facility] 30 Normal [facility] 30 Normal [facility] BASIC METABOLIC PANELon 11-23 Anion gap [Moles/Vol] 7 mmol/L Normal 7-20 [facility] Comment on above: Performed By: #### L [id number] ####[facility] ([facility])[address] [place] [address] Calcium [Mass/Vol] 8.1 mg/dL Low 8.6-10.3 [facility] Comment on above: Performed By: #### L [id number] ####[facility] ([facility])[address] [place] [address] Chloride [Moles/Vol] 103 mmol/L Normal 98-107 [facility] Comment on above: Performed By: #### L [id number] ####[facility] ([facility])[address] [place] [address] CO2 [Moles/Vol] 27 mmol/L Normal 21-31 [facility] Comment on above: Performed By: #### L [id number] ####[facility] ([facility])[address] [place] [address] Creatinine [Mass/Vol] 0.65 mg/dL Normal 0.60-1.20 [facility] Comment on above: Performed By: #### L [id number] ####[facility] ([facility])[address] [place] [address] GLOMERULAR FILTRATION RATE ML/MIN/1.73 SQ M.PREDICTED 99.5 mL/min/1.73m*2 Normal >60.0 [facility] Comment on above: Result Comment: [facility]???s estimated glomerular filtration rate (eGFR) will no [...] of individuals. Performed By: #### L [id number] ####[facility] ([facility])[address] [place] [address] Glucose [Mass/Vol] 116 mg/dL High 70-100 [facility] Comment on above: Performed By: #### L [id number] ####[facility] ([facility])[address] [place] [address] Potassium [Moles/Vol] 4.1 mmol/L Normal 3.5-5.1 [facility] Comment on above: Performed By: #### L [id number] ####[facility] ([facility])[address] [place] [address] Sodium [Moles/Vol] 133 mmol/L Low 136-145 [facility] Comment on above: Performed By: #### L [id number] ####[facility] ([facility])[address] [place] [address] Urea nitrogen [Mass/Vol] 20 mg/dL Normal 7-25 [facility] Comment on above: Performed By: #### L [id number] ####[facility] [place] [address] UREA NITROGEN/CREATININE (MASS RATIO) IN SER/PLAS 30.8 Normal [facility] Comment on above: Performed By: #### L [id number] ####[facility] ([facility])[address] [place] [address] CBCon 12-19-2023 Erythrocyte distribution width (RBC) [Ratio] 13.2 % Normal 11.5-15.0 [facility] Comment on above: Performed By: #### L [id number] ####[facility] ([facility])[address] [place] [address] ERYTHROCYTE MEAN CORPUSCULAR HEMOGLOBIN CONCENTRATION (G/DL) BY AUTOMATED 32.4 g/dL Normal 32.0-35.0 [facility] Comment on above: Performed By: #### L [id number] ####[facility] ([facility])[address] [place] [address] Hematocrit (Bld) [Volume fraction] 21.6 % Low 36.0-48.0 [facility] Comment on above: Performed By: #### L [id number] ####[facility] ([facility])[address] [place] [address] Hemoglobin (Bld) [Mass/Vol] 7.0 g/dL Low 12.0-15.0 [facility] Comment on above: Performed By: #### L [id number] ####[facility] ([facility])[address] [place] [address] MCH (RBC) [Entitic mass] 31.5 pg Normal 27.0-33.0 [facility] Comment on above: Performed By: #### L [id number] ####[facility] ([facility])[address] [place] [address] MCV (RBC) [Entitic vol] 97.3 fL Normal 82.0-98.0 [facility] Comment on above: Performed By: #### L [id number] ####[facility] ([facility])[address] [place] [address] PLATELETS (10*3/UL) IN BLOOD AUTOMATED COUNT 183 10*3/uL Normal 150-400 [facility] Comment on above: Performed By: #### L [id number] ####[facility] ([facility])[address] [place] [place] [address] RBC (Bld) [#/Vol] 2.22 10*6/uL Low 3.80-5.00 [facility] Comment on above: Performed By: #### L [id number] ####[facility] ([facility])[address] [place] [address] WBC (Bld) [#/Vol] 6.45 10*3/uL Normal 4.00-10.60 [facility] Comment on above: Performed By: #### L [id number] ####[facility] ([facility])[address] [place] [place] [address] MAGNESIUMon 12-19-2023 Magnesium [Mass/Vol] 2.1 mg/dL Normal 1.9-2.7 [facility] Comment on above: Performed By: #### L [id number] ####[facility] ([facility])[address] [place] [address] POCT GLUCOSE METER UNSOLICIT ED RESULTSon 12-19-2023 Glucose [Mass/Vol] 181 mg/dL High 70-105 [facility] Comment on above: Order Comment: Waive d Testing in the ED is performed under the ED CLIA certificate #[id number]. Result Comment: [email or web address] Performed By: #### L [id number] ####[facility] ([facility])[address] [place] [address] Glucose [Mass/Vol] 148 mg/dL High 70-105 [facility] Comment on above: Order Comment: Waive d Testing in the ED is performed under the ED CLIA certificate #[id number]. Result Comment: bflo od Performed By: #### L [id number] ####[facility] ([facility])[address] [place] [place] [address] Glucose [Mass/Vol] 204 mg/dL High 70-105 [facility] Comment on above: Order Comment: Waive d Testing in the ED is performed under the ED CLIA certificate #[id number]. Result Comment: bflo od Performed By: #### L [id number] ####[facility] [place] [place] [address] Glucose [Mass/Vol] 150 mg/dL High 70-105 [facility] Comment on above: Order Comment: Waive d Testing in the ED is performed under the ED CLIA certificate #[id number]. Result Comment: bflo od Performed By: #### L [id number] ####[facility] ([facility])[address] [place] [address] 30on 12-18-2023 30 Normal [facility] 30 Normal [facility] ALBUMINon 12-18-2023 Albumin [Mass/Vol] 3.2 g/dL Low 3.5-5.7 [facility] Comment on above: Performed By: #### L [id number] ####[facility] ([facility])[address] [place] [place] [address] BASIC METABOLIC PANELon 11-23 Anion gap [Moles/Vol] 7 mmol/L Normal 7-20 [facility] Comment on above: Performed By: #### L [id number] ####[facility] ([facility])[address] [place] [address] Calcium [Mass/Vol] 8.4 mg/dL Low 8.6-10.3 [facility] Comment on above: Performed By: #### L [id number] ####[facility] ([facility])[address] [place] [address] Chloride [Moles/Vol] 103 mmol/L Normal 98-107 [facility] Comment on above: Performed By: #### L [id number] ####[facility] ([facility])[address] [place] [address] CO2 [Moles/Vol] 27 mmol/L Normal 21-31 [facility] Comment on above: Performed By: #### L [id number] ####[facility] ([facility])[address] [place] [address] Creatinine [Mass/Vol] 0.72 mg/dL Normal 0.60-1.20 [facility] Comment on above: Performed By: #### L [id number] ####[facility] ([facility])[address] [place] [address] GLOMERULAR FILTRATION RATE ML/MIN/1.73 SQ M.PREDICTED 94.5 mL/min/1.73m*2 Normal >60.0 [facility] Comment on above: Result Comment: [facility]???s estimated glomerular filtration rate (eGFR) will no [...] of individuals. Performed By: #### L [id number] ####[facility] [place] [address] Glucose [Mass/Vol] 122 mg/dL High 70-100 [facility] Comment on above: Performed By: #### L [id number] ####[facility] ([facility])[address] [place] [address] Potassium [Moles/Vol] 4.2 mmol/L Normal 3.5-5.1 [facility] Comment on above: Performed By: #### L [id number] ####[facility] ([facility])[address] [place] [address] Sodium [Moles/Vol] 133 mmol/L Low 136-145 [facility] Comment on above: Performed By: #### L [id number] ####[facility] ([facility])[address] [place] [address] Urea nitrogen [Mass/Vol] 20 mg/dL Normal 7-25 [facility] Comment on above: Performed By: #### L [id number] ####[facility] ([facility] [place] [address] UREA NITROGEN/CREATININE (MASS RATIO) IN SER/PLAS 27.8 Normal [facility] Comment on above: Performed By: #### L [id number] ####[facility] ([facility])[address] [place] [address] CBCon 12-18-2023 Erythrocyte distribution width (RBC) [Ratio] 13.1 % Normal 11.5-15.0 [facility] Comment on above: Performed By: #### L [id number] ####[facility] ([facility] [place] [address] ERYTHROCYTE MEAN CORPUSCULAR HEMOGLOBIN CONCENTRATION (G/DL) BY AUTOMATED 32.8 g/dL Normal 32.0-35.0 [facility] Comment on above: Performed By: #### L [id number] ####[facility] ([facility] [place] [address] Hematocrit (Bld) [Volume fraction] 22.9 % Low 36.0-48.0 [facility] Comment on above: Performed By: #### L [id number] ####[facility] ([facility])[address] [place] [address] Hemoglobin (Bld) [Mass/Vol] 7.5 g/dL Low 12.0-15.0 [facility] Comment on above: Performed By: #### L [id number] ####[facility] ([facility])[address] [place] [address] MCH (RBC) [Entitic mass] 31.5 pg Normal 27.0-33.0 [facility] Comment on above: Performed By: #### L [id number] ####[facility] ([facility])[address] [place] [place] [address] MCV (RBC) [Entitic vol] 96.2 fL Normal 82.0-98.0 [facility] Comment on above: Performed By: #### L [id number] ####[facility] ([facility])[address] [facility] [place] [address] PLATELETS (10*3/UL) IN BLOOD AUTOMATED COUNT 161 10*3/uL Normal 150-400 [facility] Comment on above: Performed By: #### L [id number] ####[facility] ([facility])[address] [place] [place] [address] RBC (Bld) [#/Vol] 2.38 10*6/uL Low 3.80-5.00 [facility] Comment on above: Performed By: #### L [id number] ####[facility] ([facility])[address] [place] [address] WBC (Bld) [#/Vol] 8.15 10*3/uL Normal 4.00-10.60 [facility] Comment on above: Performed By: #### L [id number] ####[facility] ([facility])[address] [place] [address] CT CHEST WO IV CONTRASTon CT CHEST WO IV CONTRAST Invalid Interpretation Code [facility] IRON AND TIBCon 12-18-2023 IRON (UG/DL) IN SER/PLAS 21 ug/dL Low 50-212 [facility] Comment on above: Performed By: #### L [id number] ####[facility] [place] [address] IRON BINDING CAPACITY (UG/DL) IN SER/PLAS 187 ug/dL Low 250-450 [facility] Comment on above: Performed By: #### L [id number] ####[facility] ([facility])[address] [place] [address] IRON BINDING CAPACITY.UNSATURATED (UG/DL) IN SER/PLAS 166.0 ug/dL Normal 155.0-355.0 [facility] Comment on above: Performed By: #### L [id number] ####[facility] ([facility])[address] [place] [address] IRON SATURATION (%) IN SER/PLAS 11 % Low 20-50 [facility] Comment on above: Performed By: #### L [id number] ####[facility] ([facility])[address] [place] [address] MAGNESIUMon 12-18-2023 Magnesium [Mass/Vol] 2.0 mg/dL Normal 1.9-2.7 [facility] Comment on above: Performed By: #### L [id number] ####[facility] ([facility])[address] [place] [place] [address] NURSNOTEon 12-18-2023 NURSNOTE Normal [facility] NURSNOTE Normal [facility] NURSNOTE Normal [facility] POCT GLUCOSE METER UNSOLICIT ED RESULTSon 12-18-2023 Glucose [Mass/Vol] 138 mg/dL High 70-105 [facility] Comment on above: Order Comment: Waive d Testing in the ED is performed under the ED CLIA certificate #[id number]. Result Comment: larry [email or web address] Performed By: #### L [id number] ####[facility] ([facility])[address] [place] [address] Glucose [Mass/Vol] 163 mg/dL High 70-105 [facility] Comment on above: Order Comment: Waive d Testing in the ED is performed under the ED CLIA certificate #[id number]. Result Comment: [email or web address] Performed By: #### L [id number] ####[facility] ([facility])[address] [place] [address] Glucose [Mass/Vol] 118 mg/dL High 70-105 [facility] Comment on above: Order Comment: Waive d Testing in the ED is performed under the ED CLIA certificate #[id number]. Result Comment: [email or web address] [email or web address] Performed By: #### L [id number] ####[facility] ([place])[address] [place] [address] Glucose [Mass/Vol] 160 mg/dL High 70-105 [facility] Comment on above: Order Comment: Waive d Testing in the ED is performed under the ED CLIA certificate #[id number]. Result Comment: [email or web address] Performed By: #### L [id number] ####[facility] ([email or web address])[address] [place] [address] PROCALCITONIN TESTon 024 PROCALCITONIN IN BLOOD 0.22 ng/mL High 0.00-0.10 [facility] Comment on above: Result Comment: Susp ected [...] and initial PCT<0.5ng/mL Performed By: #### L [id number] ####[facility] ([facility]AKER)[address] [place] [place] [address] TSHon 12-18-2023 THYROTROPIN (MIU/L) IN SER/PLAS BY DETECTION LIMIT <= 0.05 MIU/L 5.49 mIU/L Normal 0.34-5.60 [facility] Comment on above: Performed By: #### L [id number] ####[facility] ([facility] [place] [address] 30on 12-17-2023 30 Normal [facility] BASIC METABOLIC PANELon 11-23 Anion gap [Moles/Vol] 8 mmol/L Normal 7-20 [facility] Comment on above: Performed By: #### L [id number] ####[facility] [place] [address] Calcium [Mass/Vol] 8.5 mg/dL Low 8.6-10.3 [facility] Comment on above: Performed By: #### L [id number] ####[facility] ([facility])[address] [place] [address] Chloride [Moles/Vol] 104 mmol/L Normal 98-107 [facility] Comment on above: Performed By: #### L [id number] ####[facility] ([facility]ER)[address] [place] [address] CO2 [Moles/Vol] 28 mmol/L Normal 21-31 [facility] Comment on above: Performed By: #### L [id number] ####[facility] ([facility])[address] [place] [address] Creatinine [Mass/Vol] 0.68 mg/dL Normal 0.60-1.20 [facility] Comment on above: Performed By: #### L [id number] ####[facility] ([facility]ER)[address] [place] [place] [address] GLOMERULAR FILTRATION RATE ML/MIN/1.73 SQ M.PREDICTED 98.4 mL/min/1.73m*2 Normal >60.0 [facility] Comment on above: Result Comment: [facility]???s estimated glomerular filtration rate (eGFR) will no [...] of individuals. Performed By: #### L [id number] ####[facility] ([facility])[address] [address] Glucose [Mass/Vol] 110 mg/dL High 70-100 [facility] Comment on above: Performed By: #### L [id number] ####[facility] (BE[facility]ER)[address] [place] [address] Potassium [Moles/Vol] 3.4 mmol/L Low 3.5-5.1 [facility] Comment on above: Performed By: #### L [id number] ####[facility] ([facility]ER)[address] [place] [address] Sodium [Moles/Vol] 137 mmol/L Normal 136-145 [facility] Comment on above: Performed By: #### L [id number] ####[facility] ([facility]ER)[address] [address] Urea nitrogen [Mass/Vol] 15 mg/dL Normal 7-25 [facility] Comment on above: Performed By: #### L [id number] ####[facility] (BEAKER)[address] [place] [address] UREA NITROGEN/CREATININE (MASS RATIO) IN SER/PLAS 22.1 Normal [facility] Comment on above: Performed By: #### L [id number] ####[facility] ([facility]ER)[address] [place] [address] CBCon 12-17-2023 Erythrocyte distribution width (RBC) [Ratio] 13.0 % Normal 11.5-15.0 [facility] Comment on above: Performed By: #### L [id number] ####[facility] ([facility] [place] [place] [address] ERYTHROCYTE MEAN CORPUSCULAR HEMOGLOBIN CONCENTRATION (G/DL) BY AUTOMATED 33.5 g/dL Normal 32.0-35.0 [facility] Comment on above: Performed By: #### L [id number] ####[facility] ([facility] [place] [place] [address] Hematocrit (Bld) [Volume fraction] 23.0 % Low 36.0-48.0 [facility] Comment on above: Performed By: #### L [id number] ####[facility] ([facility])[address] [place] [place], [place] [address] Hemoglobin (Bld) [Mass/Vol] 7.7 g/dL Low 12.0-15.0 [facility] Comment on above: Performed By: #### L [id number] ####[facility] ([facility] [place] [place] [address] MCH (RBC) [Entitic mass] 31.3 pg Normal 27.0-33.0 [facility] Comment on above: Performed By: #### L [id number] ####[facility] (BE[facility]ER)[address] [place] [place] [address] MCV (RBC) [Entitic vol] 93.5 fL Normal 82.0-98.0 [facility] Comment on above: Performed By: #### L [id number] ####[facility] ([facility] [place] [place] [address] PLATELETS (10*3/UL) IN BLOOD AUTOMATED COUNT 135 10*3/uL Low 150-400 [facility] Comment on above: Performed By: #### L [id number] ####[facility] ([facility]ER)[address] [place] [place], [place] [address] RBC (Bld) [#/Vol] 2.46 10*6/uL Low 3.80-5.00 [facility] Comment on above: Performed By: #### L [id number] ####[facility] ([facility])[address] [place] [place] [address] WBC (Bld) [#/Vol] 9.45 10*3/uL Normal 4.00-10.60 [facility] Comment on above: Performed By: #### L [id number] ####[facility] ([facility])[address] [place] [place] [address] IRON AND TIBCon 12-17-2023 IRON (UG/DL) IN SER/PLAS 28 ug/dL Low 50-212 [facility] Comment on above: Performed By: #### L [id number] ####[facility] ([facility])[address] [place] [place] [address] IRON BINDING CAPACITY (UG/DL) IN SER/PLAS 190 ug/dL Low 250-450 [facility] Comment on above: Performed By: #### L [id number] ####[facility] ([facility])[address] [place] [place], [place] [address] IRON BINDING CAPACITY.UNSATURATED (UG/DL) IN SER/PLAS 162.0 ug/dL Normal 155.0-355.0 [facility] Comment on above: Performed By: #### L [id number] ####[facility] ([facility])[address] [place] [place] [address] IRON SATURATION (%) IN SER/PLAS 15 % Low 20-50 [facility] Comment on above: Performed By: #### L [id number] ####[facility] ([facility])[address] [place] [place], [place] [address] MAGNESIUMon 12-17-2023 Magnesium [Mass/Vol] 2.0 mg/dL Normal 1.9-2.7 [facility] Comment on above: Performed By: #### L [id number] ####[facility] ([facility])[address] [place] [address] Orders Onlyon 12-17-2023 Orders Only Normal [facility] POCT GLUCOSE METER UNSOLICIT ED RESULTSon 09-25-2024 Glucose [Mass/Vol] 178 mg/dL High 70-105 [facility] Comment on above: Order Comment: Waive d Testing in the ED is performed under the ED CLIA certificate #[id number]. Result Comment: [email or web address] Performed By: #### L [id number] ####[facility] ([facility])[address] [place] [address] Glucose [Mass/Vol] 181 mg/dL High 70-105 [facility] Comment on above: Order Comment: Waive d Testing in the ED is performed under the ED CLIA certificate #[id number]. Result Comment: [email or web address] Performed By: #### L [id number] ####[facility] ([email or web address])[address] [place] [address] Glucose [Mass/Vol] 221 mg/dL High 70-105 [facility] Comment on above: Order Comment: Waive d Testing in the ED is performed under the ED CLIA certificate #[id number]. Result Comment: clum an Performed By: #### L [id number] ####[facility] ([facility])[address] [place] [address] Glucose [Mass/Vol] 166 mg/dL High 70-105 [facility] Comment on above: Order Comment: Waive d Testing in the ED is performed under the ED CLIA certificate #[id number]. Result Comment: clum an Performed By: #### L [id number] ####[facility] ([facility])[address] [place] [address] Glucose [Mass/Vol] 152 mg/dL High 70-105 [facility] Comment on above: Order Comment: Waive d Testing in the ED is performed under the ED CLIA certificate #[id number]. Result Comment: clum an Performed By: #### L [id number] ####[facility] ([facility])[address] [place] [address] Glucose [Mass/Vol] 154 mg/dL High 70-105 [facility] Comment on above: Order Comment: Waive d Testing in the ED is performed under the ED CLIA certificate #[id number]. Result Comment: cdav ies Performed By: #### L [id number] ####[facility] ([facility])[address] [place] [address] Glucose [Mass/Vol] 153 mg/dL High 70-105 [facility] Comment on above: Order Comment: Waive d Testing in the ED is performed under the ED CLIA certificate #[id number]. Result Comment: [email or web address] Performed By: #### L [id number] ####[facility] ([facility])[address] [place] [address] Glucose [Mass/Vol] 160 mg/dL High 70-105 [facility] Comment on above: Order Comment: Waive d Testing in the ED is performed under the ED CLIA certificate #[id number]. Result Comment: cdav ies Performed By: #### L [id number] ####[facility] ([facility])[address] [place] [address] Glucose [Mass/Vol] 147 mg/dL High 70-105 [facility] Comment on above: Order Comment: Waive d Testing in the ED is performed under the ED CLIA certificate #[id number]. Result Comment: cdav ies Performed By: #### L [id number] ####[facility] ([facility])[address] [place] [address] Glucose [Mass/Vol] 129 mg/dL High 70-105 [facility] Comment on above: Order Comment: Waive d Testing in the ED is performed under the ED CLIA certificate #[id number]. Result Comment: cdav ies Performed By: #### L [id number] ####[facility] ([facility])[address] [place] [address] Glucose [Mass/Vol] 136 mg/dL High 70-105 [facility] Comment on above: Order Comment: Waive d Testing in the ED is performed under the ED CLIA certificate #[id number]. Result Comment: cdav ies Performed By: #### L [id number] ####[facility] ([facility])[address] [place] [address] Glucose [Mass/Vol] 147 mg/dL High 70-105 [facility] Comment on above: Order Comment: Waive d Testing in the ED is performed under the ED CLIA certificate #[id number]. Result Comment: cdav ies Performed By: #### L [id number] ####[facility] ([facility])[address] [place] [address] Glucose [Mass/Vol] 161 mg/dL High 70-105 [facility] Comment on above: Order Comment: Waive d Testing in the ED is performed under the ED CLIA certificate #[id number]. Result Comment: cdav ies Performed By: #### L [id number] ####[facility] ([facility])[address] [place] [address] 30on 12-16-2023 30 Normal [facility] 30 Normal [facility] ANESon 12-16-2023 ANES [facility] ANTI-XA (HEPARIN LEVEL)on HEPARIN UNFRACTIONATED (U/ML) IN PPP BY CHROMOGENIC METHOD <0.10 Invalid Interpretation Code 0.3-0.7 [facility] Comment on above: Result Comment: [place] roxaban and Apixaban will interfere with the anti Xa assay used to monitor UFH and LMWH. Performed By: #### L [id number] ####[facility] ([facility])[address] [place] [address] APTTon 12-16-2023 ACTIVATED PARTIAL THROMBOPLASTIN TIME IN PPP BY COAGULATION ASSAY 27.7 Seconds Normal 25.0-35.0 [facility] Comment on above: Result Comment: Clin ical significance of the APTT is questionable in the presence of heparin. Performed By: #### L [id number] ####[facility] ([facility])[address] [place] [address] BASIC METABOLIC PANELon 11-23 Anion gap [Moles/Vol] 10 mmol/L Normal 7-20 [facility] Comment on above: Performed By: #### L [id number] ####[facility] ([facility])[address] [place] [address] Calcium [Mass/Vol] 8.5 mg/dL Low 8.6-10.3 [facility] Comment on above: Performed By: #### L [id number] ####[facility] [place] [address] Chloride [Moles/Vol] 108 mmol/L High 98-107 [facility] Comment on above: Performed By: #### L [id number] ####[facility] ([facility] [place] [address] CO2 [Moles/Vol] 27 mmol/L Normal 21-31 [facility] Comment on above: Performed By: #### L [id number] ####[facility] ([facility])[address] [place] [address] Creatinine [Mass/Vol] 0.80 mg/dL Normal 0.60-1.20 [facility] Comment on above: Performed By: #### L [id number] ####[facility] ([facility])[address] [place], [place] [address] GLOMERULAR FILTRATION RATE ML/MIN/1.73 SQ M.PREDICTED 83.3 mL/min/1.73m*2 Normal >60.0 [facility] Comment on above: Result Comment: [facility]???s estimated glomerular filtration rate (eGFR) will no [...] of individuals. Performed By: #### L [id number] ####[facility] ([facility])[address] [place] [address] Glucose [Mass/Vol] 159 mg/dL High 70-100 [facility] Comment on above: Performed By: #### L [id number] ####[facility] ([facility])[address] [place], [place] [address] Potassium [Moles/Vol] 4.3 mmol/L Normal 3.5-5.1 [facility] Comment on above: Performed By: #### L [id number] ####[facility] ([facility])[address] [place] [address] Sodium [Moles/Vol] 141 mmol/L Normal 136-145 [facility] Comment on above: Performed By: #### L [id number] ####[facility] ([facility])[address] [place], [place] [address] Urea nitrogen [Mass/Vol] 15 mg/dL Normal 7-25 [facility] Comment on above: Performed By: #### L [id number] ####[facility] ([facility])[address] [place] [address] UREA NITROGEN/CREATININE (MASS RATIO) IN SER/PLAS 18.8 Normal [facility] Comment on above: Performed By: #### L [id number] ####[facility] ([facility])[address] [place] [address] CBCon 12-16-2023 Erythrocyte distribution width (RBC) [Ratio] 13.0 % Normal 11.5-15.0 [facility] Comment on above: Performed By: #### L [id number] ####[facility] ([facility])[address] [place] [address] ERYTHROCYTE MEAN CORPUSCULAR HEMOGLOBIN CONCENTRATION (G/DL) BY AUTOMATED 33.7 g/dL Normal 32.0-35.0 [facility] Comment on above: Performed By: #### L [id number] ####[facility] ([facility])[address] [place] [place] [address] Hematocrit (Bld) [Volume fraction] 24.3 % Low 36.0-48.0 [facility] Comment on above: Performed By: #### L [id number] ####[facility] ([facility])[address] [place] [address] Hemoglobin (Bld) [Mass/Vol] 8.2 g/dL Low 12.0-15.0 [facility] Comment on above: Performed By: #### L [id number] ####[facility] ([facility])[address] [place] [place] [address] MCH (RBC) [Entitic mass] 31.1 pg Normal 27.0-33.0 [facility] Comment on above: Performed By: #### L [id number] ####[facility] ([facility])[place] [address] MCV (RBC) [Entitic vol] 92.0 fL Normal 82.0-98.0 [facility] Comment on above: Performed By: #### L [id number] ####[facility] ([facility])[place] [address] PLATELETS (10*3/UL) IN BLOOD AUTOMATED COUNT 130 10*3/uL Low 150-400 [facility] Comment on above: Performed By: #### L [id number] ####[facility] ([facility])[address] [place] [address] RBC (Bld) [#/Vol] 2.64 10*6/uL Low 3.80-5.00 [facility] Comment on above: Performed By: #### L [id number] ####[facility] ([facility])[address] [place] [address] WBC (Bld) [#/Vol] 6.53 10*3/uL Normal 4.00-10.60 [facility] Comment on above: Performed By: #### L [id number] ####[facility] ([facility])[address] [place] [address] CONSULTon 12-16-2023 CONSULT Normal [facility] MAGNESIUMon 12-16-2023 Magnesium [Mass/Vol] 2.2 mg/dL Normal 1.9-2.7 [facility] Comment on above: Performed By: #### L [id number] ####[facility] ([facility])[address] [place] [address] PHOSPHORUSon 12-16-2023 Magnesium [Mass/Vol] 3.6 mg/dL Normal 2.5-5.0 [facility] Comment on above: Performed By: #### L [id number] ####[facility] ([facility])[address] [place] [address] POCT GLUCOSE METER UNSOLICIT ED RESULTSon 12-16-2023 Glucose [Mass/Vol] 163 mg/dL High 70-105 [facility] Comment on above: Order Comment: Waive d Testing in the ED is performed under the ED CLIA certificate #[id number]. Result Comment: cdav ies Performed By: #### L [id number] ####[facility] ([facility])[address] [place] [address] Glucose [Mass/Vol] 138 mg/dL High 70-105 [facility] Comment on above: Order Comment: Waive d Testing in the ED is performed under the ED CLIA certificate #[id number]. Result Comment: cdav ies Performed By: #### L [id number] ####[facility] ([email or web address])[address] [place] [address] Glucose [Mass/Vol] 105 mg/dL Normal 70-105 [facility] Comment on above: Order Comment: Waive d Testing in the ED is performed under the ED CLIA certificate #[id number]. Result Comment: cdav ies Performed By: #### L [id number] ####[facility] ([facility])[address] [place] [address] Glucose [Mass/Vol] 77 mg/dL Normal 70-105 [facility] Comment on above: Order Comment: Waive d Testing in the ED is performed under the ED CLIA certificate #[id number]. Result Comment: cdav ies Performed By: #### L [id number] ####[facility] ([facility])[address] [place] [address] Glucose [Mass/Vol] 128 mg/dL High 70-105 [facility] Comment on above: Order Comment: Waive d Testing in the ED is performed under the ED CLIA certificate #[id number]. Result Comment: [email or web address] Performed By: #### L [id number] ####[facility] ([facility])[address] [place] [address] Glucose [Mass/Vol] 155 mg/dL High 70-105 [facility] Comment [facility] above: Order Comment: Waive d Testing in the ED is performed under the ED CLIA certificate #[id number]. Result Comment: [email or web address] Performed By: #### L [id number] ####[facility] ([facility])[address] [place] [address] Glucose [Mass/Vol] 160 mg/dL High 70-105 [facility] Comment on above: Order Comment: Waive d Testing in the ED is performed under the ED CLIA certificate #[id number]. Result Comment: [email or web address] Performed By: #### L [id number] ####[facility] ([facility])[address] [place] [address] Glucose [Mass/Vol] 126 mg/dL High 70-105 [facility] Comment on above: Order Comment: Waive d Testing in the ED is performed under the ED CLIA certificate #[id number]. Result Comment: [email or web address] Performed By: #### L [id number] ####[facility] ([facility])[address] [place] [address] Glucose [Mass/Vol] 125 mg/dL High 70-105 [facility] Comment on above: Order Comment: Waive d Testing in the ED is performed under the ED CLIA certificate #[id number]. Result Comment: [email or web address] Performed By: #### L [id number] ####[facility] ([email or web address])[address] [place] [address] Glucose [Mass/Vol] 173 mg/dL High 70-105 [facility] Comment on above: Order Comment: Waive d Testing in the ED is performed under the ED CLIA certificate #[id number]. Result Comment: [email or web address] Performed By: #### L [id number] ####[facility] ([facility])[address] [place] [address] Glucose [Mass/Vol] 160 mg/dL High 70-105 [facility] Comment on above: Order Comment: Waive d Testing in the ED is performed under the ED CLIA certificate #[id number]. Result Comment: [email or web address] Performed By: #### L [id number] ####[facility] ([facility])[address] [place] [address] Glucose [Mass/Vol] 189 mg/dL High 70-105 [facility] Comment on above: Order Comment: Waive d Testing in the ED is performed under the ED CLIA certificate #[id number]. Result Comment: [email or web address] Performed By: #### L [id number] ####[facility] ([facility])[address] [place] [address] Glucose [Mass/Vol] 172 mg/dL High 70-105 [facility] Comment on above: Order Comment: Waive d Testing in the ED is performed under the ED CLIA certificate #[id number]. Result Comment: [email or web address] Performed By: #### L [id number] ####[facility] ([facility])[address] [place] [address] Glucose [Mass/Vol] 188 mg/dL High 70-105 [facility] Comment on above: Order Comment: Waive d Testing in the ED is performed under the ED CLIA certificate #[id number]. Result Comment: [email or web address] Performed By: #### L [id number] ####[facility] ([facility])[address] [place] [address] Glucose [Mass/Vol] 192 mg/dL High 70-105 [facility] Comment on above: Order Comment: Waive d Testing in the ED is performed under the ED CLIA certificate #[id number]. Result Comment: [email or web address] Performed By: #### L [id number] ####[facility] ([facility])[address] [place] [address] Glucose [Mass/Vol] 233 mg/dL High 70-105 [facility] Comment on above: Order Comment: Waive d Testing in the ED is performed under the ED CLIA certificate #[id number]. Result Comment: cdav ies Performed By: #### L [id number] ####[facility] ([facility])[address] [place] [address] Glucose [Mass/Vol] 198 mg/dL High 70-105 [facility] Comment on above: Order Comment: Waive d Testing in the ED is performed under the ED CLIA certificate #[id number]. Result Comment: cdav ies Performed By: #### L [id number] ####[facility] ([facility])[address] [place] [address] Glucose [Mass/Vol] 193 mg/dL High 70-105 [facility] Comment on above: Order Comment: Waive d Testing in the ED is performed under the ED CLIA certificate #[id number]. Result Comment: cdav ies Performed By: #### L [id number] ####[facility] ([facility])[address] [place] [address] Glucose [Mass/Vol] 186 mg/dL High 70-105 [facility] Comment on above: Order Comment: Waive d Testing in the ED is performed under the ED CLIA certificate #[id number]. Result Comment: cdav ies Performed By: #### L [id number] ####[facility] ([facility])[address] [place] [address] Glucose [Mass/Vol] 208 mg/dL High [address] [facility] Comment on above: Order Comment: Waive d Testing in the ED is performed under the ED CLIA certificate #[id number]. Result Comment: cdav ies Performed By: #### L [id number] ####[facility] ([place])[address] [place] [address] Glucose [Mass/Vol] 188 mg/dL High 70-105 [facility] Comment on above: Order Comment: Waive d Testing in the ED is performed under the ED CLIA certificate #[id number]. Result Comment: cdav ies Performed By: #### L [id number] ####[facility] ([place])[address] [place] [address] Glucose [Mass/Vol] 177 mg/dL High 70-105 [facility] Comment on above: Order Comment: Waive d Testing in the ED is performed under the ED CLIA certificate #[id number]. Result Comment: cdav ies Performed By: #### L [id number] ####[facility] ([facility])[address] [place] [address] PROTIME-INRon 12-16-2023 INR IN PPP BY COAGULATION ASSAY 1.19 High 0.90-1.10 [facility] Comment on above: Result Comment: ACCC P [...] CHEST 1995;[id number]. Performed By: #### L [id number] ####[facility] ([facility])[address] [place] [address] PROTHROMBIN TIME (PT) IN PPP BY COAGULATION ASSAY 15.0 Seconds High 12.3-14.8 [facility] Comment on above: Performed By: #### L [id number] ####[facility] ([facility])[address] [place] [address] 30on 12-15-2023 30 Normal [facility] APTTon 12-15-2023 ACTIVATED PARTIAL THROMBOPLASTIN TIME IN PPP BY COAGULATION ASSAY 25.0 Seconds Normal 25.0-35.0 [facility] Comment on above: Result Comment: Clin ical significance of the APTT is questionable in the presence of heparin. Performed By: #### L [id number] ####[facility] ([facility])[address] [place] [address] ARTERIAL BLOOD GAS WITH IONI ZED CALCIUMon 12-15-2023 Base excess Calc (Bld) [Moles/Vol] -2.2000 mmol/L Low -2.0-3.0 [facility] Comment on above: Performed By: #### L [id number] ####[facility] [id number] [place] [address] [facility] CALCIUM IONIZED (MMOL/L) IN BLOOD 1.22 mmol/L Normal 1.15-1.33 [facility] Comment on above: Performed By: #### L [id number] ####[facility] [id number] [place] [address] [place] CO2 (Bld) [Partial pressure] 37 mm[Hg] Normal 35-48 [facility] Comment on above: Performed By: #### L [id number] ####[facility] [id number] [place] [address] [place] HCO3 (Bld) [Moles/Vol] 22.4 mmol/L Normal 21.0-28.0 U [facility] Comment on above: Performed By: #### L [id number] ####[facility] [id number] [place] [address] [place] LPM 3 Normal [facility] Comment on above: Performed By: #### L [id number] ####[facility] [id number] [place] [address] [place] Oxygen (Bld) [Partial pressure] 106 mm[Hg] High 83-100 [facility] Comment on above: Performed By: #### L [id number] ####[facility] [id number] [place] [address] [place] OXYGEN SATURATION (%) IN ARTERIAL BLOOD 99.0 % High 94.0-98.0 [facility] Comment on above: Performed By: #### L [id number] ####[facility] [id number] [place] [address] [place] pH (Bld) 7.39 [pH] Normal 7.35-7.45 [facility] Comment on above: Performed By: #### L [id number] ####[facility] [id number] [place] [address] [facility] SOURCE OF OXYGEN Nasal cannula Normal [facility] Comment on above: Performed By: #### L [id number] ####[facility] [id number] [place] [address] [facility] Anesthesiaon 12-15-2023 Anesthesia Normal [facility] BASIC METABOLIC PANELon 11-23 Anion gap [Moles/Vol] 10 mmol/L Normal 7-20 [facility] Comment on above: Performed By: #### L [id number] ####[facility] ([facility])[address] [place] [address] Calcium [Mass/Vol] 9.0 mg/dL Normal 8.6-10.3 [facility] Comment on above: Performed By: #### L [id number] ####[facility] ([facility])[address] [facility] [address] Chloride [Moles/Vol] 101 mmol/L Normal 98-107 [facility] Comment on above: Performed By: #### L [id number] ####[facility] ([facility])[address] [facility] [place] [address] CO2 [Moles/Vol] 27 mmol/L Normal 21-31 [facility] Comment on above: Performed By: #### L [id number] ####[facility] ([facility])[address] [place] [address] Creatinine [Mass/Vol] 0.85 mg/dL Normal 0.60-1.20 [facility] Comment on above: Performed By: #### L [id number] ####[facility] ([facility])[address] [place] [place] [address] GLOMERULAR FILTRATION RATE ML/MIN/1.73 SQ M.PREDICTED 77.4 mL/min/1.73m*2 Normal >60.0 [facility] Comment on above: Result Comment: [facility]???s estimated glomerular filtration rate (eGFR) will no [...] of individuals. Performed By: #### L [id number] ####[facility] ([facility])[address] [place] [place] [address] Glucose [Mass/Vol] 118 mg/dL High 70-100 [facility] Comment on above: Performed By: #### L [id number] ####[facility] ([facility])[address] [place] [place] [address] Potassium [Moles/Vol] 4.3 mmol/L Normal 3.5-5.1 [facility] Comment on above: Performed By: #### L [id number] ####[facility] ([facility])[address] [place] [place] [address] Sodium [Moles/Vol] 134 mmol/L Low 136-145 [facility] Comment on above: Performed By: #### L [id number] ####[facility] ([facility])[address] [place] [address] Urea nitrogen [Mass/Vol] 17 mg/dL Normal 7-25 [facility] Comment on above: Performed By: #### L [id number] ####[facility] [place] [address] UREA NITROGEN/CREATININE (MASS RATIO) IN SER/PLAS 20.0 Normal [facility] Comment on above: Performed By: #### L [id number] ####[facility] ([facility] [place] [address] CBCon 12-15-2023 Erythrocyte distribution width (RBC) [Ratio] 12.5 % Normal 11.5-15.0 [facility] Comment on above: Performed By: #### L [id number] ####[facility] ([facility])[address] [place] [address] ERYTHROCYTE MEAN CORPUSCULAR HEMOGLOBIN CONCENTRATION (G/DL) BY AUTOMATED 34.4 g/dL Normal 32.0-35.0 [facility] Comment on above: Performed By: #### L [id number] ####[facility] ([facility])[address] [place] [address] Hematocrit (Bld) [Volume fraction] 41.8 % Normal 36.0-48.0 [facility] Comment on above: Performed By: #### L [id number] ####[facility] ([facility] [place] [address] Hemoglobin (Bld) [Mass/Vol] 14.4 g/dL Normal 12.0-15.0 [facility] Comment on above: Performed By: #### L [id number] ####[facility] ([facility])[address] [address] MCH (RBC) [Entitic mass] 31.2 pg Normal 27.0-33.0 [facility] Comment on above: Performed By: #### L [id number] ####[facility] ([facility])[address] [place] [address] MCV (RBC) [Entitic vol] 90.5 fL Normal 82.0-98.0 [facility] Comment on above: Performed By: #### L [id number] ####[facility] ([facility])[address] [place] [address] PLATELETS (10*3/UL) IN BLOOD AUTOMATED COUNT 207 10*3/uL Normal 150-400 [facility] Comment on above: Performed By: #### L [id number] ####[facility] ([facility])[address] [place] [address] RBC (Bld) [#/Vol] 4.62 10*6/uL Normal 3.80-5.00 [facility] Comment on above: Performed By: #### L [id number] ####[facility] ([facility])[address] [place] [address] WBC (Bld) [#/Vol] 6.04 10*3/uL Normal 4.00-10.60 [facility] Comment on above: Performed By: #### L [id number] ####[facility] ([facility])[address] [place] [address] CBC WITH AUTO DIFFERENTIALon 12-15-2023 Basophils (Bld) [#/Vol] 0.05 10*3/uL Normal 0.00-0.20 [facility] Comment on above: Performed By: #### L [id number] ####[facility] ([facility])[address] [place] [address] Basophils/100 WBC (Bld) 0.3 % Normal 0.0-1.0 [facility] Comment on above: Performed By: #### L [id number] ####[facility] [place] [address] Eosinophils (Bld) [#/Vol] 0.01 10*3/uL Normal 0.00-0.50 [facility] Comment on above: Performed By: #### L [id number] ####[facility] ([facility])[address] [place] [address] Eosinophils/100 WBC (Bld) 0.1 % Normal 0.0-6.0 [facility] Comment on above: Performed By: #### L [id number] ####[facility] ([facility])[address] [place] [address] Erythrocyte distribution width (RBC) [Ratio] 12.8 % Normal 11.5-15.0 [facility] Comment on above: Performed By: #### L [id number] ####[facility] ([facility] [place] [address] ERYTHROCYTE MEAN CORPUSCULAR HEMOGLOBIN CONCENTRATION (G/DL) BY AUTOMATED 33.2 g/dL Normal 32.0-35.0 [facility] Comment on above: Performed By: #### L [id number] ####[facility] [place] [place] [address] Hematocrit (Bld) [Volume fraction] 31.0 % Low 36.0-48.0 [facility] Comment on above: Performed By: #### L [id number] ####[facility] ([facility])[address] [place] [place] [address] Hemoglobin (Bld) [Mass/Vol] 10.3 g/dL Low 12.0-15.0 [facility] Comment on above: Performed By: #### L [id number] ####[facility] ([facility])[address] [place] [place] [address] Immature granulocytes (Bld) [#/Vol] 0.12 10*3/uL Normal 0.00-0.20 [facility] Comment on above: Performed By: #### L [id number] ####[facility] ([facility])[address] [place] [place] [address] Immature granulocytes/100 WBC (Bld) 0.8 % Normal 0.0-1.0 [facility] Comment on above: Performed By: #### L [id number] ####[facility] ([facility])[address] [place] [place] [address] Lymphocytes (Bld) [#/Vol] 1.58 10*3/uL Normal 1.20-4.00 [facility] Comment on above: Performed By: #### L [id number] ####[facility] ([facility])[address] [place] [place] [address] Lymphocytes/100 WBC (Bld) 10.4 % Low 20.0-45.0 [facility] Comment on above: Performed By: #### L [id number] ####[facility] ([facility] [place] [place] [address] [facility] ([facility]BC) [Entitic mass] 31.2 pg Normal 27.0-33.0 [facility] Comment on above: Performed By: #### L [id number] ####[facility] ([facility])[address] [place] [address] MCV (RBC) [Entitic vol] 93.9 fL Normal 82.0-98.0 [facility] Comment on above: Performed By: #### L [id number] ####[facility] ([facility])[address] [place] [address] Monocytes (Bld) [#/Vol] 1.19 10*3/uL High 0.10-1.00 [facility] Comment on above: Performed By: #### L [id number] ####[facility] ([facility])[address] [place] [address] Monocytes/100 WBC (Bld) 7.8 % Normal 5.0-12.0 [facility] Comment on above: Performed By: #### L [id number] ####[facility] ([facility])[address] [place], [place] [address] Neutrophils (Bld) [#/Vol] 12.28 10*3/uL High 1.60-7.60 [facility] Comment on above: Performed By: #### L [id number] ####[facility] ([facility])[address] [place] [address] Neutrophils/100 WBC (Bld) 80.6 % High 40.0-72.0 [facility] Comment on above: Performed By: #### L [id number] ####[facility] ([facility])[address] [place] [address] NRBC (PER 100 WBCS) BY AUTOMATED COUNT 0.0 % Normal 0 [facility] Comment on above: Performed By: #### L [id number] ####[facility] ([facility])[address] [place] [place] [address] PLATELETS (10*3/UL) IN BLOOD AUTOMATED COUNT 189 10*3/uL Normal 150-400 [facility] Comment on above: Performed By: #### L [id number] ####[facility] ([facility])[address] [place] [address] RBC (Bld) [#/Vol] 3.30 10*6/uL Low 3.80-5.00 [facility] Comment on above: Performed By: #### L [id number] ####[facility] ([facility])[address] [place] [address] WBC (Bld) [#/Vol] 15.23 10*3/uL High 4.00-10.60 [facility] Comment on above: Performed By: #### L [id number] ####[facility] ([facility])[address] [place] [place] [address] CO-OXIMETRYon 12-15-2023 CARBOXYHEMOGLOBIN/HEMO GLOBIN TOTAL % IN BLOOD 1.7 % Normal [facility] Comment on above: Performed By: #### L [id number] ####[facility] [id number] [place] [address] [place] Hemoglobin (Bld) [Mass/Vol] 9.1 g/dL Normal [facility] Comment on above: Performed By: #### L [id number] ####[facility] [id number] [place] [address] [place] METHEMOGLOBIN/100 IN BLOOD 0.3 % Normal 0.0-1.5 [facility] Comment on above: Performed By: #### L [id number] ####[facility] [id number] [place] [address] [place] Oxygen saturation in Blood 64.9 % Normal [facility] Comment on above: Performed By: #### L [id number] ####[facility] [id number] [place] [address] [facility] OXYGENATED HEMOGLOBIN IN BLOOD 63.6 % Normal [facility] Comment on above: Performed By: #### L [id number] ####[facility] [id number] [place] [address] [facility] COMPREHENSIVE METABOLIC PANE Kirit 12-15-2023 Albumin [Mass/Vol] 3.5 g/dL Normal 3.5-5.7 [facility] Comment on above: Performed By: #### L [id number] ####[facility] ([facility])[address] [place] [address] ALP [Catalytic activity/Vol] 47 U/L Normal 34-104 [facility] Comment on above: Performed By: #### L [id number] ####[facility] ([facility])[address] [place] [address] ALT [Catalytic activity/Vol] 21 U/L Normal 7-52 [facility] Comment on above: Performed By: #### L [id number] ####[facility] ([facility])[address] [place] [address] Anion gap [Moles/Vol] 13 mmol/L Normal 7-20 [facility] Comment on above: Performed By: #### L [id number] ####[facility] ([facility])[address] [place] [address] AST [Catalytic activity/Vol] 37 U/L Normal 13-39 [facility] Comment on above: Performed By: #### L [id number] ####[facility] ([facility])[address] [place] [address] Bilirubin [Mass/Vol] 0.6 mg/dL Normal 0.3-1.0 [facility] Comment on above: Performed By: #### L [id number] ####[facility] ([facility])[address] [place] [address] Calcium [Mass/Vol] 9.1 mg/dL Normal 8.6-10.3 [facility] Comment on above: Performed By: #### L [id number] ####[facility] ([facility])[address] [place] [place] [address] Chloride [Moles/Vol] 109 mmol/L High 98-107 [facility] Comment on above: Performed By: #### L [id number] ####[facility] ([facility])[address] [place] [place] [address] CO2 [Moles/Vol] 21 mmol/L Normal 21-31 [facility] Comment on above: Performed By: #### L [id number] ####[facility] ([facility])[address] [place] [place] [address] Creatinine [Mass/Vol] 0.84 mg/dL Normal 0.60-1.20 [facility] Comment on above: Performed By: #### L [id number] ####[facility] ([facility])[address] [place] [address] GLOMERULAR FILTRATION RATE ML/MIN/1.73 SQ M.PREDICTED 78.5 mL/min/1.73m*2 Normal >60.0 [facility] Comment on above: Result Comment: [facility]???s estimated glomerular filtration rate (eGFR) will no [...] of individuals. Performed By: #### L [id number] ####[facility] ([facility])[address] [place] [place] [address] Glucose [Mass/Vol] 205 mg/dL High 70-100 [facility] Comment on above: Performed By: #### L [id number] ####[facility] ([facility])[address] [place] [address] Potassium [Moles/Vol] 4.0 mmol/L Normal 3.5-5.1 [facility] Comment on above: Performed By: #### L [id number] ####[facility] ([facility])[address] [place] [address] Protein [Mass/Vol] 5.2 g/dL Low 6.0-8.3 [facility] Comment on above: Performed By: #### L [id number] ####[facility] ([facility])[address] [place] [place] [address] Sodium [Moles/Vol] 139 mmol/L Normal 136-145 [facility] Comment on above: Performed By: #### L [id number] ####[facility] ([facility])[address] [place] [place] [address] Urea nitrogen [Mass/Vol] 15 mg/dL Normal 7-25 [facility] Comment on above: Performed By: #### L [id number] ####[facility] ([facility])[address] [place] [address] UREA NITROGEN/CREATININE (MASS RATIO) IN SER/PLAS 17.9 Normal [facility] Comment on above: Performed By: #### L [id number] ####[facility] ([facility])[address] [place] [place] [address] FIBRINOGENon 12-15-2023 Magnesium [Mass/Vol] 292 mg/dL Normal 150-425 [facility] Comment on above: Performed By: #### L [id number] ####[facility] ([facility])[address] [place] [address] HPon 12-15-2023 HP H&P reviewed. The edward garcia was examined and there are no changes to the H&P. Normal [facility] LACTIC ACID, PLASMAon 2023 LACTATE (MMOL/L) IN SER/PLAS 2.1 mmol/L Normal 0.5-2.2 [facility] Comment on above: Performed By: #### L [id number] ####[facility] ([facility])[address] [place] [address] MAGNESIUMon 12-15-2023 Magnesium [Mass/Vol] 2.4 mg/dL Normal 1.9-2.7 [facility] Comment on above: Performed By: #### L [id number] ####[facility] ([facility])[address] [place] [address] NURSNOTEon 12-15-2023 NURSNOTE Normal [facility] NURSNOTE Normal [facility] OPNOTEon 12-15-2023 OPNOTE Normal [facility] PHOSPHORUSon 12-15-2023 Magnesium [Mass/Vol] 5.4 mg/dL High 2.5-5.0 [facility] Comment on above: Performed By: #### L [id number] ####[facility] ([facility])[address] [place] [address] POCT ACTIVATED CLOTTING TIME UNSOLICITED RESULTSon 12-15-2023 POC ACTIVATED CLOTTING TIME 123 sec Normal 82-152 [facility] Comment on above: Performed By: #### L [id number] ####[facility] ([facility])[address] [place] [address] POC ACTIVATED CLOTTING TIME 475 sec High 82-152 [facility] Comment on above: Performed By: #### L [id number] ####[facility] ([facility])[address] [place] [address] POC ACTIVATED CLOTTING TIME 521 sec High 82-152 [facility] Comment on above: Performed By: #### L [id number] ####[facility] ([facility])[address] [place] [address] POC ACTIVATED CLOTTING TIME 462 sec High 82-152 [facility] Comment on above: Performed By: #### L [id number] ####[facility] ([facility])[address] [place] [address] POC ACTIVATED CLOTTING TIME 469 sec High 82-152 [facility] Comment on above: Performed By: #### L [id number] ####[facility] ([facility])[address] [place] [address] POC ACTIVATED CLOTTING TIME 584 sec High 82-152 [facility] Comment on above: Performed By: #### L [id number] ####[facility] ([facility])[address] [place] [address] POC ACTIVATED CLOTTING TIME 116 sec Normal 82-152 [facility] Comment on above: Performed By: #### L [id number] ####[facility] ([facility])[address] [place] [address] POCT GLUCOSE METER UNSOLICIT ED RESULTSon 12-15-2023 Glucose [Mass/Vol] 171 mg/dL High 70-105 [facility] Comment on above: Order Comment: Waive d Testing in the ED is performed under the ED CLIA certificate #[id number]. Result Comment: cdav ies Performed By: #### L [id number] ####[facility] ([facility])[address] [place] [address] Glucose [Mass/Vol] 184 mg/dL High 70-105 [facility] Comment on above: Order Comment: Waive d Testing in the ED is performed under the ED CLIA certificate #[id number]. Result Comment: cdav ies Performed By: #### L [id number] ####[facility] ([facility])[address] [place] [address] Glucose [Mass/Vol] 166 mg/dL High 70-105 [facility] Comment on above: Order Comment: Waive d Testing in the ED is performed under the ED CLIA certificate #[id number]. Result Comment: cdav ies Performed By: #### L [id number] ####[facility] ([facility])[address] [place] [address] Glucose [Mass/Vol] 145 mg/dL High 70-105 [facility] Comment on above: Order Comment: Waive d Testing in the ED is performed under the ED CLIA certificate #[id number]. Result Comment: cdav ies Performed By: #### L [id number] ####[facility] ([facility])[address] [place] [place] [address] Glucose [Mass/Vol] 216 mg/dL High 70-105 [facility] Comment on above: Order Comment: Waive d Testing in the ED is performed under the ED CLIA certificate #[id number]. Result Comment: jgig and Performed By: #### L [id number] ####[facility] ([facility])[address] [place] [place] [address] Glucose [Mass/Vol] 224 mg/dL High 70-105 [facility] Comment on above: Order Comment: Waive d Testing in the ED is performed under the ED CLIA certificate #[id number]. Result Comment: jgig and Performed By: #### L [id number] ####[facility] ([facility])[address] [place] [address] POCT PERFUSION PANEL UNSOLIC ITED RESULTSon 12-15-2023 CO2 [Moles/Vol] 23.0 mmol/L Normal 21.0-29.0 [facility] Comment on above: Performed By: #### L [id number] ####[facility] ([facility])[address] [place] [place] [address] Glucose [Mass/Vol] 205 mg/dL High 70-105 [facility] Comment on above: Performed By: #### L [id number] ####[facility] ([facility])[address] [place] [place] [address] HCO3 (Bld) [Moles/Vol] 22.1 mmol/L Low 23.0-28.0 U [facility] Comment on above: Performed By: #### L [id number] ####[facility] ([facility])[address] [place] [place] [address] Hematocrit (Bld) [Volume fraction] 27 % Low 38-51 [facility] Comment on above: Performed By: #### L [id number] ####[facility] ([facility])[address] [place] [address] Hemoglobin (Bld) [Mass/Vol] 9.2 g/dL Low 12.0-17.0 [facility] Comment on above: Performed By: #### L [id number] ####[facility] ([facility])[address] [place] [place] [address] POCT BASE EXCESS -4.0 mmol/L Low -2.0-3.0 [facility] Comment on above: Performed By: #### L [id number] ####[facility] ([facility])[address] [place] [address] POCT IONIZED CALCIUM 1.18 mmol/L Normal 1.12-1.32 [facility] Comment on above: Performed By: #### L [id number] ####[facility] ([facility])[address] [place] [place] [address] POCT PCO2 42.2 mmHg Normal 41.0-51.0 [facility] Comment on above: Performed By: #### L [id number] ####[facility] ([facility])[address] [place] [place] [address] POCT PH 7.33 Normal 7.31-7.41 [facility] Comment on above: Performed By: #### L [id number] ####[facility] ([facility])[address] [place] [place] [address] POCT PO2 306 mmHg High 80-105 [facility] Comment on above: Performed By: #### L [id number] ####[facility] ([facility])[address] [place] [place] [address] POCT SO2 100 % High 95-98 [facility] Comment on above: Performed By: #### L [id number] ####[facility] ([facility])[address] [place] [address] Potassium [Moles/Vol] 4.3 mmol/L Normal 3.5-4.9 [facility] Comment on above: Performed By: #### L [id number] ####[facility] ([facility])[address] [place] [place] [address] Sodium [Moles/Vol] 137 mmol/L Low 138.0-146.0 [facility] Comment on above: Performed By: #### L [id number] ####[facility] ([facility])[address] [place] [address] CO2 [Moles/Vol] 24.0 mmol/L Normal 21.0-29.0 [facility] Comment on above: Performed By: #### L [id number] ####[facility] ([facility])[address] [place] [place] [address] Glucose [Mass/Vol] 196 mg/dL High 70-105 [facility] Comment on above: Performed By: #### L [id number] ####[facility] ([facility])[address] [place] [place] [address] HCO3 (Bld) [Moles/Vol] 23.0 mmol/L Normal 23.0-28.0 [facility] Comment on above: Performed By: #### L [id number] ####[facility] ([facility])[address] [place] [place] [address] Hematocrit (Bld) [Volume fraction] 25 % Low 38-51 [facility] Comment on above: Performed By: #### L [id number] ####[facility] ([facility])[address] [place] [place] [address] Hemoglobin (Bld) [Mass/Vol] 8.5 g/dL Low 12.0-17.0 [facility] Comment on above: Performed By: #### L [id number] ####[facility] ([facility])[address] [place] [place] [address] POCT BASE EXCESS -2.0 mmol/L Normal -2.0-3.0 [facility] Comment on above: Performed By: #### L [id number] ####[facility] ([facility])[address] [place] [place] [address] POCT IONIZED CALCIUM 0.99 mmol/L Low 1.12-1.32 [facility] Comment on above: Performed By: #### L [id number] ####[facility] ([facility])[address] [place] [place] [address] POCT PCO2 40.9 mmHg Low 41.0-51.0 [facility] Comment on above: Performed By: #### L [id number] ####[facility] ([facility])[address] [place] [place] [address] POCT PH 7.36 Normal 7.31-7.41 [facility] Comment on above: Performed By: #### L [id number] ####[facility] ([facility])[address] [place] [place] [address] POCT PO2 480 mmHg High 80-105 [facility] Comment on above: Performed By: #### L [id number] ####[facility] ([facility])[address] [place] [place] [address] POCT SO2 100 % High 95-98 [facility] Comment on above: Performed By: #### L [id number] ####[facility] ([facility])[address] [place] [place] [address] Potassium [Moles/Vol] 4.8 mmol/L Normal 3.5-4.9 [facility] Comment on above: Performed By: #### L [id number] ####[facility] ([facility])[address] [place] [place] [address] Sodium [Moles/Vol] 136 mmol/L Low 138.0-146.0 [facility] Comment on above: Performed By: #### L [id number] ####[facility] ([facility])[address] [place] [place] [address] CO2 [Moles/Vol] 24.0 mmol/L Normal 21.0-29.0 [facility] Comment on above: Performed By: #### L [id number] ####[facility] ([facility])[address] [place] [place] [address] Glucose [Mass/Vol] 197 mg/dL High 70-105 [facility] Comment on above: Performed By: #### L [id number] ####[facility] ([facility])[address] [place] [place] [address] HCO3 (Bld) [Moles/Vol] 22.7 mmol/L Low 23.0-28.0 U [facility] Comment on above: Performed By: #### L [id number] ####[facility] ([facility])[address] [place] [place] [address] Hematocrit (Bld) [Volume fraction] 29 % Low 38-51 [facility] Comment on above: Performed By: #### L [id number] ####[facility] ([facility])[address] [place] [place] [address] Hemoglobin (Bld) [Mass/Vol] 9.9 g/dL Low 12.0-17.0 [facility] Comment on above: Performed By: #### L [id number] ####[facility] ([facility])[address] [place] [place] [address] POCT BASE EXCESS -2.0 mmol/L Normal -2.0-3.0 [facility] Comment on above: Performed By: #### L [id number] ####[facility] ([facility])[address] [place] [place] [address] POCT IONIZED CALCIUM 1.01 mmol/L Low 1.12-1.32 [facility] Comment on above: Performed By: #### L [id number] ####[facility] ([facility])[address] [place] [place] [address] POCT PCO2 39.4 mmHg Low 41.0-51.0 [facility] Comment on above: Performed By: #### L [id number] ####[facility] ([facility])[address] [place] [place] [address] POCT PH 7.37 Normal 7.31-7.41 [facility] Comment on above: Performed By: #### L [id number] ####[facility] ([facility])[address] [place] [place] [address] POCT PO2 508 mmHg High 80-105 [facility] Comment on above: Performed By: #### L [id number] ####[facility] ([facility])[address] [place] [place] [address] POCT SO2 100 % High 95-98 [facility] Comment on above: Performed By: #### L [id number] ####[facility] [place] [place] [address] Potassium [Moles/Vol] 4.6 mmol/L Normal 3.5-4.9 [facility] Comment on above: Performed By: #### L [id number] ####[facility] ([facility])[address] [place] [place] [address] Sodium [Moles/Vol] 135 mmol/L Low 138.0-146.0 [facility] Comment on above: Performed By: #### L [id number] ####[facility] [place] [place] [address] CO2 [Moles/Vol] 25.0 mmol/L Normal 21.0-29.0 [facility] Comment on above: Performed By: #### L [id number] ####[facility] ([facility])[address] [place] [place] [address] Glucose [Mass/Vol] 186 mg/dL High 70-105 [facility] Comment on above: Performed By: #### L [id number] ####[facility] ([facility])[address] [place] [place] [address] HCO3 (Bld) [Moles/Vol] 24.0 mmol/L Normal 23.0-28.0 [facility] Comment on above: Performed By: #### L [id number] ####[facility] ([facility])[address] [place] [place] [address] Hematocrit (Bld) [Volume fraction] 26 % Low 38-51 [facility] Comment on above: Performed By: #### L [id number] ####[facility] ([facility])[address] [place] [address] Hemoglobin (Bld) [Mass/Vol] 8.8 g/dL Low 12.0-17.0 [facility] Comment on above: Performed By: #### L [id number] ####[facility] ([facility])[address] [place] [address] POCT BASE EXCESS -2.0 mmol/L Normal -2.0-3.0 [facility] Comment on above: Performed By: #### L [id number] ####[facility] ([facility])[address] [address] POCT IONIZED CALCIUM 1.00 mmol/L Low 1.12-1.32 [facility] Comment on above: Performed By: #### L [id number] ####[facility] ([facility])[address] [address] POCT PCO2 43.4 mmHg Normal 41.0-51.0 [facility] Comment on above: Performed By: #### L [id number] ####[facility] ([facility])[address] [place] [address] POCT PH 7.35 Normal 7.31-7.41 [facility] Comment on above: Performed By: #### L [id number] ####[facility] ([facility])[address] [address] POCT PO2 485 mmHg High 80-105 [facility] Comment on above: Performed By: #### L [id number] ####[facility] ([facility])[address] [address] POCT SO2 100 % High 95-98 [facility] Comment on above: Performed By: #### L [id number] ####[facility] ([facility])[address] [address] Potassium [Moles/Vol] 4.5 mmol/L Normal 3.5-4.9 [facility] Comment on above: Performed By: #### L [id number] ####[facility] ([facility])[address] [place] [place] [address] Sodium [Moles/Vol] 136 mmol/L Low 138.0-146.0 [facility] Comment on above: Performed By: #### L [id number] ####[facility] ([facility])[address] [place] [address] CO2 [Moles/Vol] 26.0 mmol/L Normal 21.0-29.0 [facility] Comment on above: Performed By: #### L [id number] ####[facility] (BE[facility])[address] [place], [place] [address] Glucose [Mass/Vol] 188 mg/dL High 70-105 [facility] Comment on above: Performed By: #### L [id number] ####[facility] ([facility])[address] [place] [place] [address] HCO3 (Bld) [Moles/Vol] 24.0 mmol/L Normal 23.0-28.0 [facility] Comment on above: Performed By: #### L [id number] ####[facility] (BEAKER)[address] [place] [place] [address] Hematocrit (Bld) [Volume fraction] 26 % Low 38-51 [facility] Comment on above: Performed By: #### L [id number] ####[facility] ([facility])[address] [place], [place] [address] Hemoglobin (Bld) [Mass/Vol] 8.8 g/dL Low 12.0-17.0 [facility] Comment on above: Performed By: #### L [id number] ####[facility] ([facility])[address] [place] [address] POCT BASE EXCESS -3.0 mmol/L Low -2.0-3.0 [facility] Comment on above: Performed By: #### L [id number] ####[facility] ([facility])[address] [address] POCT IONIZED CALCIUM 0.96 mmol/L Low 1.12-1.32 [facility] Comment on above: Performed By: #### L [id number] ####[facility] ([facility])[address] [address] POCT PCO2 52.1 mmHg High 41.0-51.0 [facility] Comment on above: Performed By: #### L [id number] ####[facility] ([facility] [address] POCT PH 7.27 Low 7.31-7.41 [facility] Comment on above: Performed By: #### L [id number] ####[facility] ([facility] [address] POCT PO2 468 mmHg High 80-105 [facility] Comment on above: Performed By: #### L [id number] ####[facility] ([facility] [address] POCT SO2 100 % High 95-98 [facility] Comment on above: Performed By: #### L [id number] ####[facility] ([facility])[address] [address] Potassium [Moles/Vol] 5.3 mmol/L High 3.5-4.9 [facility] Comment on above: Performed By: #### L [id number] ####[facility] ([facility])[address] [address] Sodium [Moles/Vol] 135 mmol/L Low 138.0-146.0 [facility] Comment on above: Performed By: #### L [id number] ####[facility] ([facility])[address] [address] CO2 [Moles/Vol] 25.0 mmol/L Normal 21.0-29.0 [facility] Comment on above: Performed By: #### L [id number] ####[facility] (BEAKER)[address] [place] [address] Glucose [Mass/Vol] 167 mg/dL High 70-105 [facility] Comment on above: Performed By: #### L [id number] ####[facility] ([facility])[address] [place], [place] [address] HCO3 (Bld) [Moles/Vol] 23.3 mmol/L Normal 23.0-28.0 [facility] Comment on above: Performed By: #### L [id number] ####[facility] (BE[facility]ER)[address] [place], [place] [address] Hematocrit (Bld) [Volume fraction] 40 % Normal 38-51 [facility] Comment on above: Performed By: #### L [id number] ####[facility] (BE[facility])[address] [place] [address] Hemoglobin (Bld) [Mass/Vol] 13.6 g/dL Normal 12.0-17.0 [facility] Comment on above: Performed By: #### L [id number] ####[facility] ([facility])[address] [place] [address] POCT BASE EXCESS -3.0 mmol/L Low -2.0-3.0 [facility] Comment on above: Performed By: #### L [id number] ####[facility] ([facility])[address] [place], [place] [address] POCT IONIZED CALCIUM 1.15 mmol/L Normal 1.12-1.32 [facility] Comment on above: Performed By: #### L [id number] ####[facility] ([facility])[address] [place] [address] POCT PCO2 47.5 mmHg Normal 41.0-51.0 [facility] Comment on above: Performed By: #### L [id number] ####[facility] ([facility])[address] [place], [place] [address] POCT PH 7.30 Low 7.31-7.41 [facility] Comment on above: Performed By: #### L [id number] ####[facility] ([facility])[address] [place] [address] POCT PO2 173 mmHg High 80-105 [facility] Comment on above: Performed By: #### L [id number] ####[facility] ([facility])[address] [place] [address] POCT SO2 99 % High 95-98 [facility] Comment on above: Performed By: #### L [id number] ####[facility] ([facility])[address] [place] [address] Potassium [Moles/Vol] 4.3 mmol/L Normal 3.5-4.9 [facility] Comment on above: Performed By: #### L [id number] ####[facility] (BEAKER)[address] [place] [address] Sodium [Moles/Vol] 136 mmol/L Low 138.0-146.0 [facility] Comment on above: Performed By: #### L [id number] ####[facility] (BEAKER)[address] [place] [address] CO2 [Moles/Vol] 23.0 mmol/L Normal 21.0-29.0 [facility] Comment on above: Performed By: #### L [id number] ####[facility] ([facility])[address] [place] [address] Glucose [Mass/Vol] 120 mg/dL High 70-105 [facility] Comment on above: Performed By: #### L [id number] ####[facility] ([facility])[address] [place] [address] HCO3 (Bld) [Moles/Vol] 21.8 mmol/L Low 23.0-28.0 [facility] Comment on above: Performed By: #### L [id number] ####[facility] ([facility])[address] [place] [address] Hematocrit (Bld) [Volume fraction] 39 % Normal 38-51 [facility] Comment on above: Performed By: #### L [id number] ####[facility] ([facility])[address] [address] Hemoglobin (Bld) [Mass/Vol] 13.3 g/dL Normal 12.0-17.0 [facility] Comment on above: Performed By: #### L [id number] ####[facility] ([facility])[address] [address] POCT BASE EXCESS -3.0 mmol/L Low -2.0-3.0 [facility] Comment on above: Performed By: #### L [id number] ####[facility] ([facility])[address] [address] POCT IONIZED CALCIUM 1.13 mmol/L Normal 1.12-1.32 [facility] Comment on above: Performed By: #### L [id number] ####[facility] ([facility])[address] [address] POCT PCO2 36.4 mmHg Low 41.0-51.0 [facility] Comment on above: Performed By: #### L [id number] ####[facility] ([facility])[address] [address] POCT PH 7.39 Normal 7.31-7.41 [facility] Comment on above: Performed By: #### L [id number] ####[facility] ([facility])[address] [address] POCT PO2 228 mmHg High 80-105 [facility] Comment on above: Performed By: #### L [id number] ####[facility] ([facility])[address] [address] POCT SO2 100 % High 95-98 [facility] Comment on above: Performed By: #### L [id number] ####[facility] ([facility])[address] [address] Potassium [Moles/Vol] 4.0 mmol/L Normal 3.5-4.9 [facility] Comment on above: Performed By: #### L [id number] ####[facility] ([place])[address] [place] [address] Sodium [Moles/Vol] 138 mmol/L Normal 138.0-146.0 [facility] Comment on above: Performed By: #### L [id number] ####[facility] ([place])[address] [place] [address] PROTIME-INRon 12-15-2023 INR IN PPP BY COAGULATION ASSAY 1.24 High 0.90-1.10 [facility] Comment on above: Result Comment: ACCC P [...] CHEST 1995;[id number]. Performed By: #### L [id number] ####[facility] ([place])[address] [place] [address] PROTHROMBIN TIME (PT) IN PPP BY COAGULATION ASSAY 15.5 Seconds High 12.3-14.8 [facility] Comment on above: Performed By: #### L [id number] ####[facility] ([place])[address] [place] [address] TYPE AND SCREENon 12-15-2023 AB SCREEN Negative Normal [facility] Comment on above: Performed By: #### L [id number] ####[facility], ABO group Nom (Bld) A Normal [facility] Comment on above: Performed By: #### L [id number] ####[facility], RH TYPE IN BLOOD Positive Normal [facility] Comment on above: Performed By: #### L [id number] ####[facility], 30on 12-14-2023 30 The patient is Moder ately Stable - Low risk of patient condition declining or worsening The patient's goals for the shift include sleep prior to CABG The clinical goals for the shift include vss Normal [facility] 30 Normal [facility] ANESon 12-14-2023 ANES [facility] ANTI-XA (HEPARIN LEVEL)on HEPARIN UNFRACTIONATED (U/ML) IN PPP BY CHROMOGENIC METHOD 0.55 IU/mL Normal 0.3-0.7 [facility] Comment on above: Result Comment: [place] roxaban and Apixaban will interfere with the anti Xa assay used to monitor UFH and LMWH. Performed By: #### L [id number] ####[facility] (AKER)[address] [place] [address] BASIC METABOLIC PANELon 11-23 Anion gap [Moles/Vol] 12 mmol/L Normal 7-20 [facility] Comment on above: Performed By: #### L [id number] ####[facility] (BEAKER)[address] [place] [address] Calcium [Mass/Vol] 8.9 mg/dL Normal 8.6-10.3 [facility] Comment on above: Performed By: #### L [id number] ####[facility] (BEAKER)[address] [place] [address] Chloride [Moles/Vol] 101 mmol/L Normal 98-107 [facility] Comment on above: Performed By: #### L [id number] ####[facility] ([facility])[address] [place] [place] [address] CO2 [Moles/Vol] 26 mmol/L Normal 21-31 [facility] Comment on above: Performed By: #### L [id number] ####[facility] ([facility])[address] [place] [place] [address] Creatinine [Mass/Vol] 0.83 mg/dL Normal 0.60-1.20 [facility] Comment on above: Performed By: #### L [id number] ####[facility] ([facility])[address] [place] [place] [address] GLOMERULAR FILTRATION RATE ML/MIN/1.73 SQ M.PREDICTED 79.7 mL/min/1.73m*2 Normal >60.0 [facility] Comment on above: Result Comment: [facility]???s estimated glomerular filtration rate (eGFR) will no [...] of individuals. Performed By: #### L [id number] ####[facility] ([facility])[address] [place] [place] [address] Glucose [Mass/Vol] 170 mg/dL High 70-100 [facility] Comment on above: Performed By: #### L [id number] ####[facility] ([facility])[address] [place] [place] [address] Potassium [Moles/Vol] 4.6 mmol/L Normal 3.5-5.1 [facility] Comment on above: Performed By: #### L [id number] ####[facility] ([facility])[address] [place] [address] Sodium [Moles/Vol] 134 mmol/L Low 136-145 [facility] Comment on above: Performed By: #### L [id number] ####[facility] ([facility])[address] [place] [address] Urea nitrogen [Mass/Vol] 17 mg/dL Normal 7-25 [facility] Comment on above: Performed By: #### L [id number] ####[facility] ([facility])[address] [place] [address] UREA NITROGEN/CREATININE (MASS RATIO) IN SER/PLAS 20.5 [facility] Comment on above: Performed By: #### L [id number] ####[facility] ([facility])[address] [place] [address] 30on 12-13-2023 30 [facility] 30 [facility] ANTI-XA (HEPARIN LEVEL)on HEPARIN UNFRACTIONATED (U/ML) IN PPP BY CHROMOGENIC METHOD 0.49 IU/mL Normal 0.3-0.7 [facility] Comment on above: Result Comment: [place] roxaban and Apixaban will interfere with the anti Xa assay used to monitor UFH and LMWH. Performed By: #### L [id number] ####[facility] ([facility])[address] [place] [address] HEPARIN UNFRACTIONATED (U/ML) IN PPP BY CHROMOGENIC METHOD 0.60 IU/mL Normal 0.3-0.7 [facility] Comment on above: Result Comment: [place] roxaban and Apixaban will interfere with the anti Xa assay used to monitor UFH and LMWH. Performed By: #### L [id number] ####[facility] ([facility])[address] [place] [address] HEPARIN UNFRACTIONATED (U/ML) IN PPP BY CHROMOGENIC METHOD 0.70 IU/mL Normal 0.3-0.7 [facility] Comment on above: Order Comment: Check anti-Xa level every 6 hours while on heparin infusion, or per protocol. Result Comment: [place] roxaban and Apixaban will interfere with the anti Xa assay used to monitor UFH and LMWH. Performed By: #### L [id number] ####[facility] (BEAKER)[address] [place] [address] HEPARIN UNFRACTIONATED (U/ML) IN PPP BY CHROMOGENIC METHOD 0.90 IU/mL Critically high 0.3-0.7 [facility] Comment on above: Order Comment: Check anti-Xa level every 6 hours while on heparin infusion, or per protocol. Result Comment: [place] roxaban and Apixaban will interfere with the anti Xa assay used to monitor UFH and LMWH. Performed By: #### L [id number] ####[facility] ([facility])[address] [place] [address] BASIC METABOLIC PANELon 09-2 Anion gap [Moles/Vol] 10 mmol/L Normal 7-20 [facility] Comment on above: Performed By: #### L [id number] ####[facility] ([facility] [place] [address] Calcium [Mass/Vol] 8.6 mg/dL Normal 8.6-10.3 [facility] Comment on above: Performed By: #### L [id number] ####[facility] (BEAKER)[address] [place] [address] Chloride [Moles/Vol] 101 mmol/L Normal 98-107 [facility] Comment on above: Performed By: #### L [id number] ####[facility] (BEAKER)[address] [place] [address] CO2 [Moles/Vol] 27 mmol/L Normal 21-31 [facility] Comment on above: Performed By: #### L [id number] ####[facility] (BEAKER)[address] [place] [address] Creatinine [Mass/Vol] 0.85 mg/dL Normal 0.60-1.20 [facility] Comment on above: Performed By: #### L [id number] ####[facility] (BEAKER)[address] [place] [address] GLOMERULAR FILTRATION RATE ML/MIN/1.73 SQ M.PREDICTED 77.4 mL/min/1.73m*2 Normal >60.0 [facility] Comment on above: Result Comment: [facility]???s estimated glomerular filtration rate (eGFR) will no [...] of individuals. Performed By: #### L [id number] ####[facility] ([facility])[address] [place] [address] Glucose [Mass/Vol] 133 mg/dL High 70-100 [facility] Comment on above: Performed By: #### L [id number] ####[facility] ([facility])[address] [facility] [address] Potassium [Moles/Vol] 4.1 mmol/L Normal 3.5-5.1 [facility] Comment on above: Performed By: #### L [id number] ####[facility] ([facility])[address] [place] [address] Sodium [Moles/Vol] 134 mmol/L Low 136-145 [facility] Comment on above: Performed By: #### L [id number] ####[facility] ([facility])[address] [facility] [address] Urea nitrogen [Mass/Vol] 21 mg/dL Normal 7-25 [facility] Comment on above: Performed By: #### L [id number] ####[facility] ([facility])[address] [place] [address] UREA NITROGEN/CREATININE (MASS RATIO) IN SER/PLAS 24.7 Normal [facility] Comment on above: Performed By: #### L [id number] ####[facility] ([facility])[address] [place] [address] CBCon 12-13-2023 Erythrocyte distribution width (RBC) [Ratio] 12.6 % Normal 11.5-15.0 [facility] Comment on above: Performed By: #### L [id number] ####[facility] (BEAKER)[address] [address] ERYTHROCYTE MEAN CORPUSCULAR HEMOGLOBIN CONCENTRATION (G/DL) BY AUTOMATED 33.8 g/dL Normal 32.0-35.0 [facility] Comment on above: Performed By: #### L [id number] ####[facility] [place] [address] Hematocrit (Bld) [Volume fraction] 39.9 % Normal 36.0-48.0 [facility] Comment on above: Performed By: #### L [id number] ####[facility] ([facility])[address] [place] [address] Hemoglobin (Bld) [Mass/Vol] 13.5 g/dL Normal 12.0-15.0 [facility] Comment on above: Performed By: #### L [id number] ####[facility] (BEAKER)[address] [place] [address] MCH (RBC) [Entitic mass] 31.5 pg Normal 27.0-33.0 [facility] Comment on above: Performed By: #### L [id number] ####[facility] (BE[facility]ER)[address] [place] [address] MCV (RBC) [Entitic vol] 93.2 fL Normal 82.0-98.0 [facility] Comment on above: Performed By: #### L [id number] ####[facility] (BEAKER)[address] [place] [place] [address] PLATELETS (10*3/UL) IN BLOOD AUTOMATED COUNT 196 10*3/uL Normal 150-400 [facility] Comment on above: Performed By: #### L [id number] ####[facility] (BEAKER)[address] [place] [place] [address] RBC (Bld) [#/Vol] 4.28 10*6/uL Normal 3.80-5.00 [facility] Comment on above: Performed By: #### L [id number] ####[facility] ([facility])[address] [place] [address] WBC (Bld) [#/Vol] 5.64 10*3/uL Normal 4.00-10.60 [facility] Comment on above: Performed By: #### L [id number] ####[facility] ([facility])[address] [place] [address] 30on 12-12-2023 30 Normal [facility] 30 Normal [facility] 30 Normal [facility] ANTI-XA (HEPARIN LEVEL)on HEPARIN UNFRACTIONATED (U/ML) IN PPP BY CHROMOGENIC METHOD 0.89 IU/mL High 0.3-0.7 [facility] Comment on above: Order Comment: Check anti-Xa level every 6 hours while on heparin infusion, or per protocol. Result Comment: [place] roxaban and Apixaban will interfere with the anti Xa assay used to monitor UFH and LMWH. Performed By: #### L [id number] ####[facility] ([facility])[address] [place] [address] HEPARIN UNFRACTIONATED (U/ML) IN PPP BY CHROMOGENIC METHOD 0.97 IU/mL Critically high 0.3-0.7 [facility] Comment on above: Result Comment: [place] roxaban and Apixaban will interfere with the anti Xa assay used to monitor UFH and LMWH. Performed By: #### L [id number] ####[facility] ([facility])[address] [place] [address] HEPARIN UNFRACTIONATED (U/ML) IN PPP BY CHROMOGENIC METHOD <0.10 Invalid Interpretation Code 0.3-0.7 [facility] Comment on above: Order Comment: Check anti-Xa level every 6 hours while on heparin infusion, or per protocol. Result Comment: [place] roxaban and Apixaban will interfere with the anti Xa assay used to monitor UFH and LMWH. Performed By: #### L [id number] ####[facility] ([facility])[address] [place] [address] HEPARIN UNFRACTIONATED (U/ML) IN PPP BY CHROMOGENIC METHOD <0.10 Invalid Interpretation Code 0.3-0.7 [facility] Comment on above: Order Comment: Check anti-Xa level every 6 hours while on heparin infusion, or per protocol. Result Comment: Rosa roxaban and Apixaban will interfere with the anti Xa assay used to monitor UFH and LMWH. Performed By: #### L [id number] ####[facility] ([facility])[address] [place] [address] Abstracton 12-12-2023 Abstract [facility] Anesthesiaon 12-12-2023 Anesthesia [facility] HPon 12-12-2023 HP H&P reviewed. The edward garcia was examined and there are no changes to the H&P. [facility] NURSNOTEon 12-12-2023 NURSNOTE Product Development Actuary informed by Diamond ENGLE RN patients CABG was cancelled today. Patient will be returning to unit shortly. [facility] NURSNOTE Patient was transpor [place] to OR for surgery before 7am. [facility] 30on 12-11-2023 30 [facility] 30 [facility] 30 [facility] APTTon 12-11-2023 ACTIVATED PARTIAL THROMBOPLASTIN TIME IN PPP BY COAGULATION ASSAY 88.0 Seconds High 25.0-35.0 [facility] Comment on above: Order Comment: Basel ine aPTT before initiating heparin infusion. Result Comment: Clin ical significance of the APTT is questionable in the presence of heparin. Performed By: #### L [id number] ####[facility] ([facility])[address] [place] [address] ACTIVATED PARTIAL THROMBOPLASTIN TIME IN PPP BY COAGULATION ASSAY 87.2 Seconds High 25.0-35.0 [facility] Comment on above: Result Comment: Clin ical significance of the APTT is questionable in the presence of heparin. Performed By: #### L [id number] ####[facility] (BEAKER)[address] [place] [place] [address] BASIC METABOLIC PANELon 09- Anion gap [Moles/Vol] 17 mmol/L Normal 7-20 [facility] Comment on above: Performed By: #### L [id number] ####[facility] (BEAKER)[address] [place] [address] Calcium [Mass/Vol] 9.2 mg/dL Normal 8.6-10.3 [facility] Comment on above: Performed By: #### L [id number] ####[facility] (BEAKER)[address] [place] [address] Chloride [Moles/Vol] 101 mmol/L Normal 98-107 [facility] Comment on above: Performed By: #### L [id number] ####[facility] [place] [address] CO2 [Moles/Vol] 19 mmol/L Low 21-31 [facility] Comment on above: Performed By: #### L [id number] ####[facility] (BEAKER)[address] [place] [address] Creatinine [Mass/Vol] 0.96 mg/dL Normal 0.60-1.20 [facility] Comment on above: Performed By: #### L [id number] ####[facility] [place] [place] [address] GLOMERULAR FILTRATION RATE ML/MIN/1.73 SQ M.PREDICTED 66.9 mL/min/1.73m*2 Normal >60.0 [facility] Comment on above: Result Comment: [facility]???s estimated glomerular filtration rate (eGFR) will no [...] of individuals. Performed By: #### L [id number] ####[facility] ([facility])[address] [place] [place], [place] [address] Glucose [Mass/Vol] 108 mg/dL High 70-100 [facility] Comment on above: Performed By: #### L [id number] ####[facility] ([facility])[address] [place] [place] [address] Potassium [Moles/Vol] 5.1 mmol/L Normal 3.5-5.1 [facility] Comment on above: Performed By: #### L [id number] ####[facility] ([facility])[address] [place], [place] [address] Sodium [Moles/Vol] 132 mmol/L Low 136-145 [facility] Comment on above: Performed By: #### L [id number] ####[facility] ([facility])[address] [place], [place] [address] Urea nitrogen [Mass/Vol] 19 mg/dL Normal 7-25 [facility] Comment on above: Performed By: #### L [id number] ####[facility] ([facility])[address] [place], [place] [address] UREA NITROGEN/CREATININE (MASS RATIO) IN SER/PLAS 19.8 Normal [facility] Comment on above: Performed By: #### L [id number] ####[facility] ([facility])[address] [place], [place] [address] CBCon 12-11-2023 Erythrocyte distribution width (RBC) [Ratio] 12.6 % Normal 11.5-15.0 [facility] Comment on above: Performed By: #### L [id number] ####[facility] ([facility])[address] [place], [place] [address] ERYTHROCYTE MEAN CORPUSCULAR HEMOGLOBIN CONCENTRATION (G/DL) BY AUTOMATED 34.1 g/dL Normal 32.0-35.0 [facility] Comment on above: Performed By: #### L [id number] ####[facility] ([facility])[address] [place], [place] [address] Hematocrit (Bld) [Volume fraction] 42.2 % Normal 36.0-48.0 [facility] Comment on above: Performed By: #### L [id number] ####[facility] ([facility])[address] [place] [address] Hemoglobin (Bld) [Mass/Vol] 14.4 g/dL Normal 12.0-15.0 [facility] Comment on above: Performed By: #### L [id number] ####[facility] [place], [place] [address] MCH (RBC) [Entitic mass] 30.8 pg Normal 27.0-33.0 [facility] Comment on above: Performed By: #### L [id number] ####[facility] ([facility] [place] [address] MCV (RBC) [Entitic vol] 90.2 fL Normal 82.0-98.0 [facility] Comment on above: Performed By: #### L [id number] ####[facility] ([facility])[address] [place], [place] [address] PLATELETS (10*3/UL) IN BLOOD AUTOMATED COUNT 182 10*3/uL Normal 150-400 [facility] Comment on above: Performed By: #### L [id number] ####[facility] ([facility] [place] [address] RBC (Bld) [#/Vol] 4.68 10*6/uL Normal 3.80-5.00 [facility] Comment on above: Performed By: #### L [id number] ####[facility] ([facility] [place], [place] [address] WBC (Bld) [#/Vol] 6.23 10*3/uL Normal 4.00-10.60 [facility] Comment on above: Performed By: #### L [id number] ####[facility] ([facility] [place] [address] CBC WITH AUTO DIFFERENTIALon 12-11-2023 Basophils (Bld) [#/Vol] 0.07 10*3/uL Normal 0.00-0.20 [facility] Comment on above: Performed By: #### L [id number] ####[facility] ([facility] [place] [address] Basophils/100 WBC (Bld) 1.1 % High 0.0-1.0 [facility] Comment on above: Performed By: #### L [id number] ####[facility] ([facility] [place] [place] [address] Eosinophils (Bld) [#/Vol] 0.02 10*3/uL Normal 0.00-0.50 [facility] Comment on above: Performed By: #### L [id number] ####[facility] ([facility])[address] [place] [place] [address] Eosinophils/100 WBC (Bld) 0.3 % Normal 0.0-6.0 [facility] Comment on above: Performed By: #### L [id number] ####[facility] ([facility])[address] [place] [address] Erythrocyte distribution width (RBC) [Ratio] 12.6 % Normal 11.5-15.0 [facility] Comment on above: Performed By: #### L [id number] ####[facility] ([facility] [place] [address] ERYTHROCYTE MEAN CORPUSCULAR HEMOGLOBIN CONCENTRATION (G/DL) BY AUTOMATED 33.7 g/dL Normal 32.0-35.0 [facility] Comment on above: Performed By: #### L [id number] ####[facility] ([facility])[address] [place] [place] [address] Hematocrit (Bld) [Volume fraction] 45.1 % Normal 36.0-48.0 [facility] Comment on above: Performed By: #### L [id number] ####[facility] ([facility])[address] [place] [address] Hemoglobin (Bld) [Mass/Vol] 15.2 g/dL High 12.0-15.0 [facility] Comment on above: Performed By: #### L [id number] ####[facility] ([facility])[address] [place] [address] Immature granulocytes (Bld) [#/Vol] 0.04 10*3/uL Normal 0.00-0.20 [facility] Comment on above: Performed By: #### L [id number] ####[facility] ([facility])[address] [place] [address] Immature granulocytes/100 WBC (Bld) 0.6 % Normal 0.0-1.0 [facility] Comment on above: Performed By: #### L [id number] ####[facility] ([facility])[address] [place] [address] Lymphocytes (Bld) [#/Vol] 1.44 10*3/uL Normal 1.20-4.00 [facility] Comment on above: Performed By: #### L [id number] ####[facility] ([facility])[address] [place] [address] Lymphocytes/100 WBC (Bld) 21.8 % Normal 20.0-45.0 [facility] Comment on above: Performed By: #### L [id number] ####[facility] ([facility])[address] [place] [address] MCH (RBC) [Entitic mass] 31.5 pg Normal 27.0-33.0 [facility] Comment on above: Performed By: #### L [id number] ####[facility] ([facility])[address] [place] [address] MCV (RBC) [Entitic vol] 93.6 fL Normal 82.0-98.0 [facility] Comment on above: Performed By: #### L [id number] ####[facility] ([facility])[address] [place] [address] Monocytes (Bld) [#/Vol] 0.46 10*3/uL Normal 0.10-1.00 [facility] Comment on above: Performed By: #### L [id number] ####[facility] ([facility])[address] [place] [place] [address] Monocytes/100 WBC (Bld) 7.0 % Normal 5.0-12.0 [facility] Comment on above: Performed By: #### L [id number] ####[facility] ([facility])[address] [place] [place] [address] Neutrophils (Bld) [#/Vol] 4.57 10*3/uL Normal 1.60-7.60 [facility] Comment on above: Performed By: #### L [id number] ####[facility] ([facility])[address] [place] [place] [address] Neutrophils/100 WBC (Bld) 69.2 % Normal 40.0-72.0 [facility] Comment on above: Performed By: #### L [id number] ####[facility] ([facility])[address] [place] [place] [address] NRBC (PER 100 WBCS) BY AUTOMATED COUNT 0.0 % Normal 0 [facility] Comment on above: Performed By: #### L [id number] ####[facility] ([facility])[address] [place] [place] [address] PLATELETS (10*3/UL) IN BLOOD AUTOMATED COUNT 207 10*3/uL Normal 150-400 [facility] Comment on above: Performed By: #### L [id number] ####[facility] ([facility])[address] [place] [place] [address] RBC (Bld) [#/Vol] 4.82 10*6/uL Normal 3.80-5.00 [facility] Comment on above: Performed By: #### L [id number] ####[facility] ([facility] [place] [place] [address] WBC (Bld) [#/Vol] 6.60 10*3/uL Normal 4.00-10.60 [facility] Comment on above: Performed By: #### L [id number] ####[facility] ([facility])[address] [place] [address] MAGNESIUMon 12-11-2023 Magnesium [Mass/Vol] 2.2 mg/dL Normal 1.9-2.7 [facility] Comment on above: Performed By: #### L [id number] ####[facility] ([facility])[address] [place] [address] MRSA/MSSA DNA NASALon 2023 MRSA DNA Negative Normal Negative [facility] Comment on above: Order Comment: Testi ng [...] preclude nasal colonization. Performed By: #### L [id number] ####[facility] ([facility])[address] [place] [address] MSSA DNA Negative Normal Negative [facility] Comment on above: Order Comment: Testi ng [...] preclude nasal colonization. Performed By: #### L [id number] ####[facility] ([facility])[address] [place] [address] PHOSPHORUSon 12-11-2023 Magnesium [Mass/Vol] 4.5 mg/dL Normal 2.5-5.0 [facility] Comment on above: Performed By: #### L [id number] ####[facility] ([facility])[address] [place] [address] PROTIME-INRon 12-11-2023 INR IN PPP BY COAGULATION ASSAY 0.99 Normal 0.90-1.10 [facility] Comment on above: Result Comment: ACCC P [...] CHEST 1995;[id number]. Performed By: #### L [id number] ####[facility] [employer] ([employer])[address] [place] [address] PROTHROMBIN TIME (PT) IN PPP BY COAGULATION ASSAY 13.1 Seconds Normal 12.3-14.8 [facility] Comment on above: Performed By: #### L [id number] ####[facility] ([employer])[address] [place] [address] TYPE AND SCREENon 12-11-2023 AB SCREEN Negative Normal [facility] Comment on above: Performed By: #### L [id number] ####[facility] B[facility]OD [facility], ABO group Nom (Bld) A Normal [facility] Comment on above: Performed By: #### L [id number] ####[facility], RH TYPE IN BLOOD Positive Normal [facility] Comment on above: Performed By: #### L [id number] ####[facility], URINALYSIS MICROSCOPIC WITH REFLEX CULTUREon 12-11-2023 CASTS IN URINE Normal [facility] Comment on above: Performed By: #### L [id number] ####[facility] ([facility])[address] [place] [address] CRYSTALS IN URINE Normal [facility] Comment on above: Performed By: #### L [id number] ####[facility] ([facility])[address] [place] [address] OTHER MICROSCOPIC ELEMENTS Normal [facility] Comment on above: Performed By: #### L [id number] ####[facility] ([facility])[address] [place] [address] RBC (#/HPF) IN URINE SEDIMENT 0-2 Abnormal None Seen [facility] Comment on above: Performed By: #### L [id number] ####[facility] ([facility])[address] [place] [address] SQUAMOUS EPITHELIAL CELLS (#/HPF) IN URINE SEDIMENT Many Abnormal None Seen, Occasional [facility] Comment on above: Performed By: #### L [id number] ####[facility] ([facility])[address] [place] [address] WBC (LEUKOCYTE) (#/HPF) IN URINE SEDIMENT 51-100 Abnormal None Seen [facility] Comment on above: Performed By: #### L [id number] ####[facility] ([facility])[address] [place] [address] URINALYSIS WITH REFLEX CULTU REon 12-11-2023 BILIRUBIN, TOTAL PRESENCE IN URINE Negative Normal Negative [facility] Comment on above: Performed By: #### L [id number] ####[facility] ([facility])[address] [place] [address] Clarity (U) Slightly Cloudy Abnormal Clear [facility] Comment on above: Performed By: #### L [id number] ####[facility] ([facility])[address] [place] [address] Color (U) Yellow Normal Yellow [facility] Comment on above: Performed By: #### L [id number] ####[facility] ([facility])[address] [place] [address] Glucose (U) [Mass/Vol] Negative Normal [facility]: Performed By: #### L [id number] ####[facility] ([facility])[address] [place] [address] HEMOGLOBIN PRESENCE IN URINE Negative Normal Negative [facility] Comment on above: Performed By: #### L [id number] ####[facility] ([facility])[address] [place] [address] Ketones Ql (U) Trace Abnormal Negative [facility] Comment on above: Performed By: #### L [id number] ####[facility] ([facility])[address] [place] [address] LEUKOCYTE ESTERASE PRESENCE IN URINE BY TEST STRIP Moderate Abnormal Negative [facility] Comment on above: Performed By: #### L [id number] ####[facility] ([facility])[address] [place] [address] NITRITE PRESENCE IN URINE Negative Normal Negative [facility] Comment on above: Performed By: #### L [id number] ####[facility] ([facility])[address] [place] [address] pH (U) 6.0 [pH] Normal 5.0-8.0 [facility] Comment on above: Performed By: #### L [id number] ####[facility] ([facility])[address] [place] [address] Protein (U) [Mass/Vol] Negative Normal Negative [facility] Comment on above: Performed By: #### L [id number] ####[facility] ([facility])[address] [place] [address] Specific gravity (U) [Rel density] 1.016 Normal 1.015-1.020 [facility] Comment on above: Performed By: #### L [id number] ####[facility] (BEAKER)[address] [place] [address] 30on 12-10-2023 30 Normal [facility] 30 Normal [facility] ANTI-XA (HEPARIN LEVEL)on HEPARIN UNFRACTIONATED (U/ML) IN PPP BY CHROMOGENIC METHOD 0.41 IU/mL Normal 0.3-0.7 [facility] Comment on above: Result Comment: [place] roxaban and Apixaban will interfere with the anti Xa assay used to monitor UFH and LMWH. Performed By: #### L [id number] ####[facility] ([facility])[address] [place] [address] APTTon 12-10-2023 ACTIVATED PARTIAL THROMBOPLASTIN TIME IN PPP BY COAGULATION ASSAY 87.5 Seconds High 25.0-35.0 [facility] Comment on above: Result Comment: Clin ical significance of the APTT is questionable in the presence of heparin. Performed By: #### L [id number] ####[facility] ([facility])[address] [place] [address] BASIC METABOLIC PANELon 11-22 Anion gap [Moles/Vol] 9 mmol/L Normal 7-20 [facility] Comment on above: Performed By: #### L [id number] ####[facility] ([facility])[address] [place] [address] Calcium [Mass/Vol] 9.0 mg/dL Normal 8.6-10.3 [facility] Comment on above: Performed By: #### L [id number] ####[facility] ([facility])[address] [place] [address] Chloride [Moles/Vol] 101 mmol/L Normal 98-107 [facility] Comment on above: Performed By: #### L [id number] ####[facility] ([facility])[address] [place] [address] CO2 [Moles/Vol] 26 mmol/L Normal 21-31 [facility] Comment on above: Performed By: #### L [id number] ####[facility] ([facility])[address] [place] [place] [address] Creatinine [Mass/Vol] 0.85 mg/dL Normal 0.60-1.20 [facility] Comment on above: Performed By: #### L [id number] ####[facility] ([facility])[address] [place] [place] [address] GLOMERULAR FILTRATION RATE ML/MIN/1.73 SQ M.PREDICTED 77.4 mL/min/1.73m*2 Normal >60.0 [facility] Comment on above: Result Comment: [facility]???s estimated glomerular filtration rate (eGFR) will no [...] of individuals. Performed By: #### L [id number] ####[facility] ([facility])[address] [place] [place] [address] Glucose [Mass/Vol] 118 mg/dL High 70-100 [facility] Comment on above: Performed By: #### L [id number] ####[facility] ([facility])[address] [place] [place] [address] Potassium [Moles/Vol] 4.4 mmol/L Normal 3.5-5.1 [facility] Comment on above: Performed By: #### L [id number] ####[facility] ([facility])[address] [place] [place] [address] Sodium [Moles/Vol] 132 mmol/L Low 136-145 [facility] Comment on above: Performed By: #### L [id number] ####[facility] ([facility])[address] [place] [place] [address] Urea nitrogen [Mass/Vol] 15 mg/dL Normal 7-25 [facility] Comment on above: Performed By: #### L [id number] ####[facility] ([facility])[address] [place] [address] UREA NITROGEN/CREATININE (MASS RATIO) IN SER/PLAS 17.6 Normal [facility] Comment on above: Performed By: #### L [id number] ####[facility] ([facility])[address] [place] [address] NURSNOTEon 12-10-2023 NURSNOTE Patient off unit for MRI. Normal [facility] Orders Onlyon 12-10-2023 Orders Only Normal [facility] 30on 12-09-2023 30 Normal [facility] 30 The patient is Moder ately Stable - Low risk of patient condition declining or worsening The patient's goals for the shift include testing The clinical goals for the shift include testing Normal [facility] APTTon 12-09-2023 ACTIVATED PARTIAL THROMBOPLASTIN TIME IN PPP BY COAGULATION ASSAY 90.0 Seconds High 25.0-35.0 [facility] Comment on above: Result Comment: Clin ical significance of the APTT is questionable in the presence of heparin. Performed By: #### L [id number] ####[facility] ([facility])[address] [place] [address] Anesthesiaon 12-09-2023 Anesthesia Normal [facility] CBCon 12-09-2023 Erythrocyte distribution width (RBC) [Ratio] 12.4 % Normal 11.5-15.0 [facility] Comment on above: Performed By: #### L [id number] ####[facility] ([facility])[address] [place] [address] ERYTHROCYTE MEAN CORPUSCULAR HEMOGLOBIN CONCENTRATION (G/DL) BY AUTOMATED 34.2 g/dL Normal 32.0-35.0 [facility] Comment on above: Performed By: #### L [id number] ####[facility] ([facility])[address] [place] [address] Hematocrit (Bld) [Volume fraction] 43.3 % Normal 36.0-48.0 [facility] Comment on above: Performed By: #### L [id number] ####[facility] ([facility])[address] [place] [address] Hemoglobin (Bld) [Mass/Vol] 14.8 g/dL Normal 12.0-15.0 [facility] Comment on above: Performed By: #### L [id number] ####[facility] ([facility])[address] [place] [address] MCH (RBC) [Entitic mass] 31.3 pg Normal 27.0-33.0 [facility] Comment on above: Performed By: #### L [id number] ####[facility] ([facility])[address] [place] [place] [address] MCV (RBC) [Entitic vol] 91.5 fL Normal 82.0-98.0 [facility] Comment on above: Performed By: #### L [id number] ####[facility] ([facility])[address] [place] [place] [address] PLATELETS (10*3/UL) IN BLOOD AUTOMATED COUNT 203 10*3/uL Normal 150-400 [facility] Comment on above: Performed By: #### L [id number] ####[facility] ([facility])[address] [place] [address] RBC (Bld) [#/Vol] 4.73 10*6/uL Normal 3.80-5.00 [facility] Comment on above: Performed By: #### L [id number] ####[facility] ([facility])[address] [place] [place] [address] WBC (Bld) [#/Vol] 4.95 10*3/uL Normal 4.00-10.60 [facility] Comment on above: Performed By: #### L [id number] ####[facility] ([facility])[address] [place] [address] CONSULTon 12-09-2023 CONSULT Normal [facility] MRI CARDIAC MORPHOLOGY AND F UNCTION W AND WO IV CONTRASTon 12-09-2023 MRI CARDIAC MORPHOLOGY AND FUNCTION W AND WO IV CONTRAST Invalid Interpretation Code [facility] 30on 12-08-2023 30 Normal [facility] 30 Normal [facility] APTTon 12-08-2023 ACTIVATED PARTIAL THROMBOPLASTIN TIME IN PPP BY COAGULATION ASSAY 100.5 Seconds High 25.0-35.0 [facility] Comment on above: Result Comment: Clin ical significance of the APTT is questionable in the presence of heparin. Performed By: #### L [id number] ####[facility] ([employer])[address] [place] [address] Orders Onlyon 12-08-2023 Orders Only Normal [facility] TYPE AND SCREENon 12-08-2023 AB SCREEN Negative Normal [facility] Comment on above: Performed By: #### L [id number] ####[facility] BLOOD [facility], ABO group Nom (Bld) A Normal [facility] Comment on above: Performed By: #### L [id number] ####[facility], RH TYPE IN BLOOD Positive [facility] Comment on above: Performed By: #### L [id number] ####[facility], APTTon 12-07-2023 ACTIVATED PARTIAL THROMBOPLASTIN TIME IN PPP BY COAGULATION ASSAY 83.7 Seconds High 25.0-35.0 [facility] Comment on above: Result Comment: Clin ical significance of the APTT is questionable in the presence of heparin. Performed By: #### L [id number] ####[facility] ([place])[address] [place] [address] ACTIVATED PARTIAL THROMBOPLASTIN TIME IN PPP BY COAGULATION ASSAY 84.7 Seconds High 25.0-35.0 [facility] Comment on above: Result Comment: Clin ical significance of the APTT is questionable in the presence of heparin. Performed By: #### L [id number] ####[facility] ([place])[address] [place] [address] ACTIVATED PARTIAL THROMBOPLASTIN TIME IN PPP BY COAGULATION ASSAY 94.5 Seconds High 25.0-35.0 [facility] Comment on above: Result Comment: Clin ical significance of the APTT is questionable in the presence of heparin. Performed By: #### L [id number] ####[facility] ([facility])[address] [place] [address] CBCon 12-07-2023 Erythrocyte distribution width (RBC) [Ratio] 12.5 % Normal 11.5-15.0 [facility] Comment on above: Performed By: #### L [id number] ####[facility] ([facility])[address] [place] [address] ERYTHROCYTE MEAN CORPUSCULAR HEMOGLOBIN CONCENTRATION (G/DL) BY AUTOMATED 34.2 g/dL Normal 32.0-35.0 [facility] Comment on above: Performed By: #### L [id number] ####[facility] ([facility])[address] [place], [place] [address] Hematocrit (Bld) [Volume fraction] 42.7 % Normal 36.0-48.0 [facility] Comment on above: Performed By: #### L [id number] ####[facility] ([facility])[address] [place] [address] Hemoglobin (Bld) [Mass/Vol] 14.6 g/dL Normal 12.0-15.0 [facility] Comment on above: Performed By: #### L [id number] ####[facility] ([facility])[address] [place] [address] MCH (RBC) [Entitic mass] 31.5 pg Normal 27.0-33.0 [facility] Comment on above: Performed By: #### L [id number] ####[facility] ([facility])[address] [place] [address] MCV (RBC) [Entitic vol] 92.0 fL Normal 82.0-98.0 [facility] Comment on above: Performed By: #### L [id number] ####[facility] ([facility])[address] [place] [address] PLATELETS (10*3/UL) IN BLOOD AUTOMATED COUNT 221 10*3/uL Normal 150-400 [facility] Comment on above: Performed By: #### L [id number] ####[facility] ([facility])[address] [place] [place] [address] RBC (Bld) [#/Vol] 4.64 10*6/uL Normal 3.80-5.00 [facility] Comment on above: Performed By: #### L [id number] ####[facility] ([facility])[address] [place] [place] [address] WBC (Bld) [#/Vol] 4.68 10*3/uL Normal 4.00-10.60 [facility] Comment on above: Performed By: #### L [id number] ####[facility] ([facility])[address] [place] [place] [address] 30on 12-06-2023 30 Normal [facility] APTTon 12-06-2023 ACTIVATED PARTIAL THROMBOPLASTIN TIME IN PPP BY COAGULATION ASSAY >200.0 Critically high 25.0-35.0 [facility] Comment on above: Result Comment: Clin ical significance of the APTT is questionable in the presence of heparin. Performed By: #### L [id number] ####[facility] ([facility])[address] [place] [place] [address] BASIC METABOLIC PANELon 11-22 Anion gap [Moles/Vol] 10 mmol/L Normal 7-20 [facility] Comment on above: Performed By: #### L [id number] ####[facility] ([facility])[address] [place] [place] [address] Calcium [Mass/Vol] 8.9 mg/dL Normal 8.6-10.3 [facility] Comment on above: Performed By: #### L [id number] ####[facility] ([facility])[address] [place] [place] [address] Chloride [Moles/Vol] 104 mmol/L Normal 98-107 [facility] Comment on above: Performed By: #### L [id number] ####[facility] ([facility])[address] [place] [place] [address] CO2 [Moles/Vol] 27 mmol/L Normal 21-31 [facility] Comment on above: Performed By: #### L [id number] ####[facility] ([facility])[address] [place] [place] [address] Creatinine [Mass/Vol] 0.74 mg/dL Normal 0.60-1.20 [facility] Comment on above: Performed By: #### L [id number] ####[facility] ([facility])[address] [place] [place] [address] GLOMERULAR FILTRATION RATE ML/MIN/1.73 SQ M.PREDICTED 91.4 mL/min/1.73m*2 Normal >60.0 [facility] Comment on above: Result Comment: [facility]???s estimated glomerular filtration rate (eGFR) will no [...] of individuals. Performed By: #### L [id number] ####[facility] ([facility])[address] [place] [place] [address] Glucose [Mass/Vol] 133 mg/dL High 70-100 [facility] Comment on above: Performed By: #### L [id number] ####[facility] ([facility])[address] [place] [address] Potassium [Moles/Vol] 4.1 mmol/L Normal 3.5-5.1 [facility] Comment on above: Performed By: #### L [id number] ####[facility] ([facility])[address] [place] [place] [address] Sodium [Moles/Vol] 137 mmol/L Normal 136-145 [facility] Comment on above: Performed By: #### L [id number] ####[facility] ([facility])[address] [place] [place] [address] Urea nitrogen [Mass/Vol] 15 mg/dL Normal 7-25 [facility] Comment on above: Performed By: #### L [id number] ####[facility] [place] [place] [address] UREA NITROGEN/CREATININE (MASS RATIO) IN SER/PLAS 20.3 Normal [facility] Comment on above: Performed By: #### L [id number] ####[facility] [place] [address] CBCon 12-06-2023 Erythrocyte distribution width (RBC) [Ratio] 12.7 % Normal 11.5-15.0 [facility] Comment on above: Performed By: #### L [id number] ####[facility] ([facility])[address] [place] [address] ERYTHROCYTE MEAN CORPUSCULAR HEMOGLOBIN CONCENTRATION (G/DL) BY AUTOMATED 34.1 g/dL Normal 32.0-35.0 [facility] Comment on above: Performed By: #### L [id number] ####[facility] ([facility])[address] [place] [place] [address] Hematocrit (Bld) [Volume fraction] 44.0 % Normal 36.0-48.0 [facility] Comment on above: Performed By: #### L [id number] ####[facility] ([facility])[address] [place] [address] Hemoglobin (Bld) [Mass/Vol] 15.0 g/dL Normal 12.0-15.0 [facility] Comment on above: Performed By: #### L [id number] ####[facility] [place] [address] MCH (RBC) [Entitic mass] 30.9 pg Normal 27.0-33.0 [facility] Comment on above: Performed By: #### L [id number] ####[facility] [place] [address] MCV (RBC) [Entitic vol] 90.7 fL Normal 82.0-98.0 [facility] Comment on above: Performed By: #### L [id number] ####[facility] ([facility])[address] [place] [address] PLATELETS (10*3/UL) IN BLOOD AUTOMATED COUNT 226 10*3/uL Normal 150-400 [facility] Comment on above: Performed By: #### L [id number] ####[facility] ([facility])[address] [place] [address] RBC (Bld) [#/Vol] 4.85 10*6/uL Normal 3.80-5.00 [facility] Comment on above: Performed By: #### L [id number] ####[facility] ([facility])[address] [place] [address] WBC (Bld) [#/Vol] 6.22 10*3/uL Normal 4.00-10.60 [facility] Comment on above: Performed By: #### L [id number] ####[facility] ([facility])[address] [place] [address] CONSULTon 12-06-2023 CONSULT Normal [facility] CONSULT Normal [facility] CT ABDOMEN PELVIS W IV CONTR Marisabel 12-06-2023 CT ABDOMEN PELVIS W IV CONTRAST Normal [facility] CT CHEST W IV CONTRASTon CT CHEST W IV CONTRAST Normal Un [facility] HEMOGLOBIN A1Con 12-06-2023 Glucose [Mass/Vol] 120 mg/dL Normal [facility] Comment on above: Performed By: #### L [id number] ####[facility] ([facility])[address] [place] [place] [address] HbA1c (Bld) [Mass fraction] 5.8 % Normal 4.0-6.0 [facility] Comment on above: Performed By: #### L [id number] ####[facility] ([facility])[address] [place] [place] [address] HPon 12-06-2023 HP Normal [facility] MRSA/MSSA DNA NASALon 2023 MRSA DNA Negative Normal Negative [facility] Comment on above: Order Comment: Testi ng [...] preclude nasal colonization. Performed By: #### L [id number] ####[facility] ([facility])[address] [place] [address] MSSA DNA Negative Normal Negative [facility] Comment on above: Order Comment: Testi ng [...] preclude nasal colonization. Performed By: #### L [id number] ####[facility] ([facility])[address] [place] [address] NURSNOTEon 12-06-2023 NURSNOTE Pt back from CT. Lab called and notified that pt is available for stat blood draws before heparin drip is set up. Normal [facility] PLATELET COUNTon 12-06-2023 PLATELETS (10*3/UL) IN BLOOD AUTOMATED COUNT 269 10*3/uL Normal 150-400 [facility] Comment on above: Performed By: #### L [id number] ####[facility] ([facility])[address] [place] [address] URINALYSISon 12-06-2023 BILIRUBIN, TOTAL PRESENCE IN URINE Negative Normal Negative [facility] Comment on above: Performed By: #### L [id number] ####[facility] ([facility])[address] [place] [address] Clarity (U) Clear Normal Clear [facility] Comment on above: Performed By: #### L [id number] ####[facility] ([facility])[address] [place] [address] Color (U) Yellow Normal Yellow [facility] Comment on above: Performed By: #### L [id number] ####[facility] ([facility])[address] [place] [address] Glucose (U) [Mass/Vol] Negative Normal [facility] above[facility] Performed By: #### L [id number] ####[facility] ([facility])[address] [place] [address] HEMOGLOBIN PRESENCE IN URINE Small Abnormal Negative [facility] Comment on above: Performed By: #### L [id number] ####[facility] ([facility])[address] [place] [address] Ketones Ql (U) Negative Normal Negative [facility] Comment on above: Performed By: #### L [id number] ####[facility] ([facility])[address] [place] [address] LEUKOCYTE ESTERASE PRESENCE IN URINE BY TEST STRIP Trace Abnormal Negative [facility] Comment on above: Performed By: #### L [id number] ####[facility] ([facility])[address] [place] [address] NITRITE PRESENCE IN URINE Negative Normal Negative [facility] Comment on above: Performed By: #### L [id number] ####[facility] ([facility])[address] [place] [address] pH (U) 7.0 [pH] Normal 5.0-8.0 [facility] Comment on above: Performed By: #### L [id number] ####[facility] ([facility])[address] [place] [address] Protein (U) [Mass/Vol] Negative Normal Negative Un [facility] Comment on above: Performed By: #### L [id number] ####[facility] ([facility])[address] [place] [address] Specific gravity (U) [Rel density] 1.031 High 1.015-1.020 [facility] Comment on above: Performed By: #### L [id number] ####[facility] ([facility])[address] [place] [address] URINALYSIS MICROSCOPICon CASTS IN URINE Normal [facility] Comment on above: Performed By: #### L [id number] ####[facility] ([facility])[address] [place] [address] CRYSTALS IN URINE Normal [facility] Comment on above: Performed By: #### L [id number] ####[facility] ([facility])[address] [place] [address] MUCUS (#/HPF) IN URINE SEDIMENT Few Normal None Seen, Occasional, Few [facility] Comment on above: Performed By: #### L [id number] ####[facility] [place] [address] RBC (#/HPF) IN URINE SEDIMENT 0-2 Abnormal None Seen [facility] Comment on above: Performed By: #### L [id number] ####[facility] ([facility])[address] [place] [address] SQUAMOUS EPITHELIAL CELLS (#/HPF) IN URINE SEDIMENT Moderate Abnormal None Seen, Occasional [facility] Comment on above: Performed By: #### L [id number] ####[facility] ([facility])[address] [place] [address] WBC (LEUKOCYTE) (#/HPF) IN URINE SEDIMENT 0-2 Abnormal None Seen [facility] Comment on above: Performed By: #### L [id number] ####[facility] ([facility])[address] [place] [address] 30on 12-05-2023 30 Normal [facility] ANESon 12-05-2023 ANES Normal [facility] B-TYPE NATRIURETIC PEPTIDEon 12-05-2023 Natriuretic peptide B (Bld) [Mass/Vol] 506 pg/mL High 0-100 [facility] Comment on above: Performed By: #### L [id number] ####[facility] [place], [place] [address] BASIC METABOLIC PANELon 11-22 Anion gap [Moles/Vol] 12 mmol/L Normal 7-20 [facility] Comment on above: Performed By: #### L [id number] ####[facility] ([facility] [place] [place], [place] [address] Calcium [Mass/Vol] 9.1 mg/dL Normal 8.6-10.3 [facility] Comment on above: Performed By: #### L [id number] ####[facility] [place], [place] [address] Chloride [Moles/Vol] 99 mmol/L Normal 98-107 [facility] Comment on above: Performed By: #### L [id number] ####[facility] [place], [place] [address] CO2 [Moles/Vol] 27 mmol/L Normal 21-31 [facility] Comment on above: Performed By: #### L [id number] ####[facility] [place] [place], [place] [address] Creatinine [Mass/Vol] 1.12 mg/dL Normal 0.60-1.20 [facility] Comment on above: Performed By: #### L [id number] ####[facility] ([facility] [place], [place] [address] GLOMERULAR FILTRATION RATE ML/MIN/1.73 SQ M.PREDICTED 55.6 mL/min/1.73m*2 Low >60.0 [facility] Comment on above: Result Comment: [facility]???s estimated glomerular filtration rate (eGFR) will no [...] of individuals. Performed By: #### L [id number] ####[facility] ([facility] [place] [address] Glucose [Mass/Vol] 111 mg/dL High 70-100 [facility] Comment on above: Performed By: #### L [id number] ####[facility] [place] [address] Potassium [Moles/Vol] 4.2 mmol/L Normal 3.5-5.1 [facility] Comment on above: Performed By: #### L [id number] ####[facility] ([facility])[address] [place] [address] Sodium [Moles/Vol] 134 mmol/L Low 136-145 [facility] Comment on above: Performed By: #### L [id number] ####[facility] [place] [address] Urea nitrogen [Mass/Vol] 18 mg/dL Normal 7-25 [facility] Comment on above: Performed By: #### L [id number] ####[facility] ([facility] [place] [address] UREA NITROGEN/CREATININE (MASS RATIO) IN SER/PLAS 16.1 Normal [facility] Comment on above: Performed By: #### L [id number] ####[facility] ([facility])[address] [place] [address] CBCon 12-05-2023 Erythrocyte distribution width (RBC) [Ratio] 12.6 % Normal 11.5-15.0 [facility] Comment on above: Performed By: #### L [id number] ####[facility] ([facility] [place] [address] ERYTHROCYTE MEAN CORPUSCULAR HEMOGLOBIN CONCENTRATION (G/DL) BY AUTOMATED 33.9 g/dL Normal 32.0-35.0 [facility] Comment on above: Performed By: #### L [id number] ####[facility] ([facility] [place] [place] [address] Hematocrit (Bld) [Volume fraction] 46.9 % Normal 36.0-48.0 [facility] Comment on above: Performed By: #### L [id number] ####[facility] ([facility])[address] [place] [place] [address] Hemoglobin (Bld) [Mass/Vol] 15.9 g/dL High 12.0-15.0 [facility] Comment on above: Performed By: #### L [id number] ####[facility] ([facility] [place] [place] [address] MCH (RBC) [Entitic mass] 31.3 pg Normal 27.0-33.0 [facility] Comment on above: Performed By: #### L [id number] ####[facility] ([facility] [place] [place], [place] [address] MCV (RBC) [Entitic vol] 92.3 fL Normal 82.0-98.0 [facility] Comment on above: Performed By: #### L [id number] ####[facility] ([facility] [place] [place] [address] PLATELETS (10*3/UL) IN BLOOD AUTOMATED COUNT 273 10*3/uL Normal 150-400 [facility] Comment on above: Performed By: #### L [id number] ####[facility] ([facility] [place] [place] [address] RBC (Bld) [#/Vol] 5.08 10*6/uL High 3.80-5.00 [facility] Comment on above: Performed By: #### L [id number] ####[facility] ([facility])[address] [place], [place] [address] WBC (Bld) [#/Vol] 6.71 10*3/uL Normal 4.00-10.60 [facility] Comment on above: Performed By: #### L [id number] ####[facility] [place] [address] HPon 12-05-2023 HP Normal [facility] HP Normal [facility] LIPID PANELon 12-05-2023 CHOL/HDL 3.6 mg/dL Normal [facility] Comment on above: Performed By: #### L [id number] ####[facility] ([facility] [place] [address] Cholesterol [Mass/Vol] 174 mg/dL Normal 120-200 [facility] Comment on above: Performed By: #### L [id number] ####[facility] ([facility] [place] [address] Magnesium [Mass/Vol] 157 mg/dL High 40-149 [facility] Comment on above: Result Comment: TRIG LYCERIDE REFERENCE RANGE:20 YEARS AND OLDER CARDIOVASCULAR RISKLESS THAN 150 mg/dL LOW [id number] TO 199 mg/dL BORDERLINE [id number] mg/dL AND GREATER HIGH RISK Performed By: #### L [id number] ####[facility] ([facility] [place] [address] Magnesium [Mass/Vol] 95 mg/dL Normal 0-160 [facility] Comment on above: Performed By: #### L [id number] ####[facility] ([facility])[address] [place] [address] Magnesium [Mass/Vol] 48 mg/dL Normal 23-92 [facility] Comment on above: Performed By: #### L [id number] ####[facility] ([facility])[address] [place] [address] NON HDL CHOL. (LDL+VLDL) 126 Normal [facility] Comment on above: Performed By: #### L [id number] ####[facility] ([facility])[address] [place] [address] TOTAL VLDL-C 31 mg/dL Normal 0-40 [facility] Comment on above: Performed By: #### L [id number] ####[facility] ([facility])[address] [place] [address] Labon 12-05-2023 Lab Normal [facility] MAGNESIUMon 12-05-2023 Magnesium [Mass/Vol] 2.0 mg/dL Normal 1.9-2.7 [facility] Comment on above: Performed By: #### L [id number] ####[facility] ([facility])[address] [place] [address] NURSNOTEon 12-05-2023 NURSNOTE Report called to Virginia martinez RN, she denies questions/concerns. Normal [facility] TROPONIN Ion 12-05-2023 Troponin I.cardiac [Mass/Vol] 0.06 ng/mL High 0.00-0.04 [facility] Comment on above: Performed By: #### L [id number] ####[facility] ([facility])[address] [place] [address] TSHon 12-05-2023 THYROTROPIN (MIU/L) IN SER/PLAS BY DETECTION LIMIT <= 0.05 MIU/L 3.41 mIU/L Normal 0.34-5.60 [facility] Comment on above: Performed By: #### L [id number] ####[facility] ([facility])[address] [place] [address] BNP ser/plasOrdered By: Maylin Navarro on 12-04-2023 Natriuretic peptide B (Bld) [Mass/Vol] 648.0 pg/mL High 5-100 [facility] Comment on above: Result Comment: PERF ORMED BY: [facility] [address] [place] [address] PATHOLOGIST TEXTILE COLORIST DYER HARVINDER GAGE M.D. Performed By: #### V ITD+D2+D3, THYROID PROF II #### [facility] , #### CMP, CBC #### [facility] [address] [place] [address] [place] Orders Onlyon 12-04-2023 Orders Only Normal [facility] Troponin I High Sensitivityo n 12-04-2023 Troponin I High Sensitivity 36.1 pg/mL High 0.0-15.0 [facility] Comment on above: Result Comment: PERF ORMED BY: [facility] [address] [place] [address] PATHOLOGIST TEXTILE COLORIST DYER HARVINDER GAGE M.D. Performed By: #### V ITD+D2+D3, THYROID PROF II #### [facility] , #### CMP, CBC #### [facility] [address] [place] [id number] [facility] Troponin I.cardiac [Mass/vol ume] in Serum or Plasma by Detection limit <= 0.01 ng/Ordered By: Gale Navarro on 12-04-2023 Troponin I.cardiac DL <= 0.01 ng/mL [Mass/Vol] 36.1 pg/mL High 0.0-15.0 [facility] HPon 12-03-2023 HP Normal [facility] Alanine aminotransferase [En zymatic activity/volume] in Serum or PlasmaOrdered By: Barby Chen on 12-02-2023 ALT [Catalytic activity/Vol] 15 U/L 7-52 [facility] Comment on above: Performed By: #### E SR, CBC, CMP #### [facility] [address] [place] [id number] [facility] Albumin [Mass/volume] in Ser um or Plasma by Bromocresol green (BCG) dye binding methoOrdered By: Barby Chen on 12-02-2023 Albumin BCG dye [Mass/Vol] 4.3 g/dL 3.5-5.7 [facility] Alkaline phosphatase [Enzyma tic activity/volume] in Serum or PlasmaOrdered By: Barby Chen on 12-02-2023 ALP [Catalytic activity/Vol] 87 U/L 34-104 [facility] Comment on above: Result Comment: PERF ORMED BY: [place] [address] PATHOLOGIST TEXTILE COLORIST DYER HARVINDER GAGE M.D. Performed By: #### E SR, CBC, CMP #### [address] Aspartate aminotransferase [ Enzymatic activity/volume] in Serum or PlasmaOrdered By: Barby Chen on 12-02-2023 AST [Catalytic activity/Vol] 20 U/L 13-39 [facility] Comment on above: Performed By: #### E SR, CBC, CMP #### [address] Automated basophil %Ordered By: Barby Chen on 12-02-2023 Basophils/100 WBC (Bld) 0.9 % . [facility] Comment on above: Performed By: #### E SR, CBC, CMP #### [address] Automated basophil countOrde red By: Barby Chen on 12-02-2023 Basophils (Bld) [#/Vol] 0.1 10*3/uL 0.0-0.2 [facility] Comment on above: Performed By: #### E SR, CBC, CMP #### [address] Automated blood monocyte cou ntOrdered By: Barby Chen on 12-02-2023 Monocytes (Bld) [#/Vol] 0.5 10*3/uL 0.0-0.8 [facility] Comment on above: Performed By: #### E SR, CBC, CMP #### [address] Automated eosinophil %Ordere d By: Barby Chen on 12-02-2023 Eosinophils/100 WBC (Bld) 0.1 % . [facility] Comment on above: Performed By: #### E SR, CBC, CMP #### [address] Automated eosinophil countOr dered By: Barby Chen on 12-02-2023 Eosinophils (Bld) [#/Vol] 0.0 10*3/uL 0.0-0.45 [facility] Comment on above: Performed By: #### E SR, CBC, CMP #### [facility] [address] [place] [address] Automated monocyte %Ordered By: Barby Chne on 12-02-2023 Monocytes/100 WBC (Bld) 6.3 % . [facility] Comment on above: Performed By: #### E SR, CBC, CMP #### [facility] [address] [place] [address] Automated neutrophil %Ordere d By: Barby Chen on 12-02-2023 Neutrophils/100 WBC (Bld) 77.8 % . [facility] Comment on above: Performed By: #### E SR, CBC, CMP #### [address] Bilirubin.total [Mass/volume ] in Serum or PlasmaOrdered By: Barby Chen on 12-02-2023 Bilirubin [Mass/Vol] 0.6 mg/dL 0.3-1.0 [facility] Comment on above: Performed By: #### E SR, CBC, CMP #### [facility] [address] [place] [address] Calcium [Mass/volume] in Ser um or PlasmaOrdered By: Barby Chen on 12-02-2023 Calcium [Mass/Vol] 9.5 mg/dL 8.6-10.3 [facility] Comment on above: Performed By: #### E SR, CBC, CMP #### [facility] [address] [place] [address] Carbon dioxide, total [Moles /volume] in Serum or PlasmaOrdered By: Barby Chen on 12-02-2023 CO2 [Moles/Vol] 27.8 mmol/L 21.0-31.0 [facility] Comment on above: Performed By: #### E SR, CBC, CMP #### [facility] [address] [place] [address] [place] Chloride [Moles/volume] in S davi or PlasmaOrdered By: Barby Chen on 12-02-2023 Chloride [Moles/Vol] 98 mmol/L 98-107 [facility] Comment on above: Performed By: #### E SR, CBC, CMP #### [facility] [address] [place] [address] Complete Blood Count Auto Di ffon 12-02-2023 Mean Corpuscular HGB Conc 34.7 g/dL Normal 32.0-35.0 [facility] Comment on above: Performed By: #### E SR, CBC, CMP #### [facility] [address] [place] [address] NRBC% 0.1 /100{WBC} Normal 0-0.5 [facility] Comment on above: Performed By: #### E SR, CBC, CMP #### [address] Comprehensive Metabolic Pane kirit 12-02-2023 Albumin [Mass/Vol] 4.3 g/dL Normal 3.5-5.7 [facility] Comment on above: Performed By: #### E SR, CBC, CMP #### [address] GFR/1.73 sq M.predicted MDRD (S/P/Bld) [Vol rate/Area] mL/min/{1.73_m2} Normal [facility] Comment on above: Performed By: #### E SR, CBC, CMP #### [facility] [address] [place] [address] Creatinine [Mass/volume] in Serum or PlasmaOrdered By: Barby Chen on 12-02-2023 Creatinine [Mass/Vol] 0.88 mg/dL 0.60-1.20 [facility] Comment on above: Performed By: #### E SR, CBC, CMP #### [facility] [address] [place] [address] Erythrocyte Sedimentation Ra antonio 12-02-2023 ESR (Bld) [Velocity] 37 mm/h High 0-29 [facility] Comment on above: Result Comment: PERF ORMED BY: [place] [address] PATHOLOGIST TEXTILE COLORIST DYER HARVINDER GAGE M.D. Performed By: #### V ITD+D2+D3, THYROID PROF II #### [facility] , #### CMP, CBC #### [address] Erythrocyte distribution wid th [Ratio] by Automated countOrdered By: Barby Chen on 12-02-2023 Erythrocyte distribution width (RBC) [Ratio] 13.3 % 11.9-15.3 [facility] Comment on above: Performed By: #### E SR, CBC, CMP #### [address] Erythrocyte sedimentation ra te by Photometric methodOrdered By: Barby Chen on 12-02-2023 ESR Photometric method (Bld) [Velocity] 37 mm/hr High 0-29 [facility] Erythrocytes [#/volume] in B lood by Automated countOrdered By: Barby Chen on 12-02-2023 RBC (Bld) [#/Vol] 4.97 10*6/uL 3.60-5.00 [facility] Comment on above: Performed By: #### E SR, CBC, CMP #### [address] Glucose [Mass/volume] in Ser um or PlasmaOrdered By: Barby Chen on 12-02-2023 Glucose [Mass/Vol] 126 mg/dL High 70-100 [facility] Comment on above: ADA recommended refe rence rangeRandom Glucose Reference Range is dependent on time and content of last meal. Glucose of more than 200 mg/dL in a nonstressed, ambulatory subject supports the diagnosis of Diabetes Mellitus. Result Comment: [place] om Glucose Reference Range is dependent on time and content of last meal. Glucose of more than 200 mg/dL in a nonstressed, ambulatory subject supports the diagnosis of Diabetes Mellitus. ADA recommended reference range Performed By: #### E SR, CBC, CMP #### [address] Hematocrit [Volume Fraction] of Blood by Automated countOrdered By: Barby Chen on 12-02-2023 Hematocrit (Bld) [Volume fraction] 45.3 % 34.0-46.4 [facility] Comment on above: Performed By: #### E SR, CBC, CMP #### [address] Hemoglobin [Mass/volume] in BloodOrdered By: Barby Chen on 12-02-2023 Hemoglobin (Bld) [Mass/Vol] 15.7 g/dL High 11.8-15.4 [facility] Comment on above: Performed By: #### E SR, CBC, CMP #### [facility] [address] [place] [address] Leukocytes [#/volume] correc chantelle for nucleated erythrocytes in Blood by Automated counOrdered By: Barby Chen on 12-02-2023 WBC corrected for nucl RBC Auto (Bld) [#/Vol] 7.9 10*3/uL 3.8-11.6 [facility] Leukocytes [#/volume] in Blo od by Automated countOrdered By: Barby Chen on 12-02-2023 WBC (Bld) [#/Vol] 7.9 10*3/uL 3.8-11.6 [facility] Comment on above: Performed By: #### E SR, CBC, CMP #### [facility] [address] [place] [address] Lymphocytes [#/volume] in Bl ood by Automated countOrdered By: Barby Chen on 12-02-2023 Lymphocytes (Bld) [#/Vol] 1.2 10*3/uL 1.00-4.8 [facility] Comment on above: Performed By: #### E SR, CBC, CMP #### [facility] [address] [place] [address] Lymphocytes/100 leukocytes i n Blood by Automated countOrdered By: Barby Chen on 12-02-2023 Lymphocytes/100 WBC (Bld) 14.9 % . [facility] Comment on above: Performed By: #### E SR, CBC, CMP #### [facility] [address] [place] [address] MCH [Entitic mass] by Automa chantelle countOrdered By: Barby Chen on 12-02-2023 MCH (RBC) [Entitic mass] 31.6 pg 24.7-34.3 [facility] Comment on above: Performed By: #### E SR, CBC, CMP #### [facility] [address] [place] [address] MCHC Auto (RBC) [Mass/Vol]Or dered By: Barby Chen on 12-02-2023 MCHC (RBC) [Mass/Vol] 34.7 g/dL 32.0-35.0 [facility] MCV [Entitic volume] by Auto mated countOrdered By: Barby Chen on 12-02-2023 MCV (RBC) [Entitic vol] 91.1 fL 80-100 [facility] Comment on above: Performed By: #### E SR, CBC, CMP #### [facility] [address] [place] [address] Neutrophils [#/volume] in Bl ood by Automated countOrdered By: Barby Chen on 12-02-2023 Neutrophils (Bld) [#/Vol] 6.2 10*3/uL 1.8-7.7 [facility] Comment on above: Performed By: #### E SR, CBC, CMP #### [facility] [address] [place] [address] No Panel InformationOrdered By: Barby Chen on 12-02-2023 Estimated GFR (CKD-EPI) > 60.0 mL/Min [facility] Creatinine Clearance (Chem N/A [facility] Nucleated erythrocytes [Pres ence] in Blood by Automated countOrdered By: Barby Chen on 12-02-2023 Nucleated RBC Auto Ql (Bld) 0.1 /100{WBC} 0-0.5 [facility] Platelet mean volume [Entiti c volume] in Blood by Automated countOrdered By: Barby Chen on 12-02-2023 Platelet mean volume (Bld) [Entitic vol] 7.6 fL 6.3-10.7 [facility] Comment on above: Performed By: #### E SR, CBC, CMP #### [address] Platelets [#/volume] in Bloo d by Automated countOrdered By: Barby Chen on 12-02-2023 Platelets (Bld) [#/Vol] 301 10*3/uL 150-450 [facility] Comment on above: Performed By: #### E SR, CBC, CMP #### [address] Potassium [Moles/volume] in Serum or PlasmaOrdered By: Barby Chen on 12-02-2023 Potassium [Moles/Vol] 4.4 mmol/L 3.5-5.1 [facility] Comment on above: Performed By: #### E SR, CBC, CMP #### [address] Protein [Mass/volume] in Ser um or PlasmaOrdered By: Barby Chen on 12-02-2023 Protein [Mass/Vol] 7.3 g/dL 6.4-8.9 [facility] Comment on above: Performed By: #### E SR, CBC, CMP #### [address] Serum globulin measurement b y calculation (mass/volume)Ordered By: Barby Chen on 12-02-2023 Globulin (S) [Mass/Vol] 3.0 g/dL [facility] Comment on above: Performed By: #### E SR, CBC, CMP #### [facility] [address] [place] [address] Serum or plasma albumin/glob ulin mass ratioOrdered By: Barby Chen on 12-02-2023 Albumin/Globulin [Mass ratio] 1.4 {ratio} [facility] Comment on above: Performed By: #### E SR, CBC, CMP #### [address] [place] [address] [place] Serum or plasma anion gap de terminationOrdered By: Barby Chen on 12-02-2023 Anion gap [Moles/Vol] 9.6 mmol/L 6.0-15.0 [facility] Comment on above: Performed By: #### E SR, CBC, CMP #### [facility] [address] [place] [address] [place] Sodium [Moles/volume] in Ser um or PlasmaOrdered By: Barby Chen on 12-02-2023 Sodium [Moles/Vol] 131 mmol/L Low 136-145 [facility] Comment on above: Performed By: #### E SR, CBC, CMP #### [address] Urea nitrogen [Mass/volume] in Serum or PlasmaOrdered By: Barby Chen on 12-02-2023 Urea nitrogen [Mass/Vol] 9 mg/dL 10-15 [facility] Comment on above: Performed By: #### E SR, CBC, CMP #### [facility] [address] [place] [address] A1C with Estimated Average G yan 11-03-2023 Glucose [Mass/Vol] 123 mg/dL Normal [facility] Comment on above: Result Comment: PERF ORMED BY: [place] [address] PATHOLOGIST TEXTILE COLORIST DYER HARVINDER GAGE M.D. Performed By: #### V ITD+D2+D3, THYROID PROF II #### [facility] , #### CMP, CBC #### [facility] [address] [place] [address] [place] Alanine aminotransferase [En zymatic activity/volume] in Serum or PlasmaOrdered By: Anibal Chaudhary on 11-03-2023 ALT [Catalytic activity/Vol] 12 U/L [facility] Comment on above: Performed By: #### V ITD+D2+D3, THYROID PROF II #### [facility] , #### CMP, CBC #### [facility] [address] [place] [address] [place] Albumin [Mass/volume] in Ser um or Plasma by Bromocresol green (BCG) dye binding methoOrdered By: Anibal Chaudhary on 11-03-2023 Albumin BCG dye [Mass/Vol] 4.2 g/dL 3.5-5.7 [facility] Alkaline phosphatase [Enzyma tic activity/volume] in Serum or PlasmaOrdered By: Anibal Chaudhary on 11-03-2023 ALP [Catalytic activity/Vol] 79 U/L 34-104 [facility] Comment on above: Performed By: #### V ITD+D2+D3, THYROID PROF II #### [facility] , #### CMP, CBC #### [facility] [address] [place] [address] Aspartate aminotransferase [ Enzymatic activity/volume] in Serum or PlasmaOrdered By: Anibal Chaudhary on 11-03-2023 AST [Catalytic activity/Vol] 16 U/L 13-39 [facility] Comment on above: Performed By: #### V ITD+D2+D3, THYROID PROF II #### [facility] , #### CMP, CBC #### [facility] [address] [place] [address] Bilirubin.total [Mass/volume ] in Serum or PlasmaOrdered By: Anibal Chaudhary on 11-03-2023 Bilirubin [Mass/Vol] 0.5 mg/dL 0.3-1.0 [facility] Comment on above: Performed By: #### V ITD+D2+D3, THYROID PROF II #### [facility] , #### CMP, CBC #### [facility] [address] [place] [address] [place] Calcium [Mass/volume] in Ser um or PlasmaOrdered By: Anibal Chaudhary on 11-03-2023 Calcium [Mass/Vol] 9.1 mg/dL 8.6-10.3 [facility] Comment on above: Performed By: #### V ITD+D2+D3, THYROID PROF II #### [facility] , #### CMP, CBC #### [facility] [address] [place] [address] [place] Carbon dioxide, total [Moles /volume] in Serum or PlasmaOrdered By: Anibal Chaudhary on 11-03-2023 CO2 [Moles/Vol] 26.2 mmol/L 21.0-31.0 [facility] Comment on above: Performed By: #### V ITD+D2+D3, THYROID PROF II #### [facility] , #### CMP, CBC #### [facility] [address] [place] [address] [place] Chloride [Moles/volume] in S davi or PlasmaOrdered By: Anibal Chaudhary on 11-03-2023 Chloride [Moles/Vol] 101 mmol/L 98-107 [facility] Comment on above: Performed By: #### V ITD+D2+D3, THYROID PROF II #### [facility] , #### CMP, CBC #### [facility] [address] [place] [address] [place] Cholesterol [Mass/volume] in Serum or PlasmaOrdered By: Anibal Chaudhary on 11-03-2023 Cholesterol [Mass/Vol] 162 mg/dL 140-200 [facility] Comment on above: Chol less than 200 m g/dl low riskChol 201-239 mg/dl borderline riskChol 240 mg/dl and greater high risk Result Comment: Chol less than 200 mg/dl low risk Chol 201-239 mg/dl borderline risk Chol 240 mg/dl and greater high risk Performed By: #### V ITD+D2+D3, THYROID PROF II #### [facility] , #### CMP, CBC #### [facility] [address] [place] [address] [place] Cholesterol in LDL Calc [Mas s/Vol]Ordered By: Anibal Chaudhary on 11-03-2023 Cholesterol in LDL [Mass/Vol] 86 mg/dL 0-100 [facility] Comment on above: LDL ATP III CLASSIFI CATIONLDL less than 100 mg/dL OptimalLDL 100-129 mg/dL Near or above optimalLDL 130-159 mg/dL Borderline highLDL 160-189 mg/dL HighLDL greater than 189 mg/dL Very high Cholesterol in VLDL Calc [Ma ss/Vol]Ordered By: Anibal Chaudhary on 11-03-2023 Cholesterol in VLDL [Mass/Vol] 20 mg/dL [facility] Comprehensive Metabolic Pane kirit 11-03-2023 Albumin [Mass/Vol] 4.2 g/dL Normal 3.5-5.7 [facility] Comment on above: Performed By: #### V ITD+D2+D3, THYROID PROF II #### [facility] , #### CMP, CBC #### [facility] [address] [place] [address] [place] GFR/1.73 sq M.predicted MDRD (S/P/Bld) [Vol rate/Area] mL/min/{1.73_m2} Normal [facility] Comment on above: Performed By: #### V ITD+D2+D3, THYROID PROF II #### [facility] , #### CMP, CBC #### [facility] [address] [place] [address] [place] Creatinine [Mass/volume] in Serum or PlasmaOrdered By: Anibal Chaudhary on 11-03-2023 Creatinine [Mass/Vol] 0.94 mg/dL 0.60-1.20 [facility] Comment on above: Performed By: #### V ITD+D2+D3, THYROID PROF II #### [facility] , #### CMP, CBC #### [facility] [address] [place] [address] [place] Glucose [Mass/volume] in Ser um or PlasmaOrdered By: Anibal Chaudhary on 11-03-2023 Glucose [Mass/Vol] 130 mg/dL High 70-100 [facility] Comment on above: ADA recommended refe rence rangeRandom Glucose Reference Range is dependent on time and content of last meal. Glucose of more than 200 mg/dL in a nonstressed, ambulatory subject supports the diagnosis of Diabetes Mellitus. Result Comment: [place] om Glucose Reference Range is dependent on time and content of last meal. Glucose of more than 200 mg/dL in a nonstressed, ambulatory subject supports the diagnosis of Diabetes Mellitus. ADA recommended reference range Performed By: #### V ITD+D2+D3, THYROID PROF II #### [facility] , #### CMP, CBC #### [facility] [address] Glucose mean value [Mass/vol ume] in Blood Estimated from glycated hemoglobinOrdered By: Anibal Chaudhary on 11-03-2023 Average glucose Estimated from glycated hemoglobin (Bld) [Mass/Vol] 123 mg/dL [facility] Hemoglobin A1c percentageOrd ered By: Anibal Chaudhary on 11-03-2023 HbA1c (Bld) [Mass fraction] 5.9 % High 4.3-5.6 [facility] Comment on above: Increased risk for d iabetes: 5.7 - 6.4diabetes: >6.4glycemic control for adults with diabetes: <7.0 Result Comment: Incr eased risk for diabetes: 5.7 - 6.4 diabetes: >6.4 glycemic control for adults with diabetes: <7.0 Performed By: #### V ITD+D2+D3, THYROID PROF II #### [facility] , #### CMP, CBC #### [address] Lipid Panelon 11-03-2023 LDL Cholesterol,Calculated 86 mg/dL Normal 0-100 [facility] Comment on above: Result Comment: LDL ATP III CLASSIFICATION LDL less than 100 mg/dL Optimal LDL 100-129 mg/dL Near or above optimal LDL 130-159 mg/dL Borderline high LDL 160-189 mg/dL High LDL greater than 189 mg/dL Very high Performed By: #### V ITD+D2+D3, THYROID PROF II #### [facility] , #### CMP, CBC #### [address] Triglyceride w/Reflex 101 mg/dL Normal 0-149 [facility] Comment on above: Result Comment: TRIG ATP III CLASSIFICATION TRIG less than 150 mg/dL Normal TRIG 150-199 mg/dL Borderline high TRIG 200-500 mg/dL High TRIG greater than 500 mg/dL Very high Standard traceable to the Center for Disease Conrtrol and Prevention (CDC) test method. Performed By: #### V ITD+D2+D3, THYROID PROF II #### [facility] , #### CMP, CBC #### [facility] [address] [place] [address] VLDL CHOLESTEROL 20 mg/dL Normal [facility] Comment on above: Performed By: #### V ITD+D2+D3, THYROID PROF II #### [facility] , #### CMP, CBC #### [address] No Panel InformationOrdered By: Anibal Chaudhary on 11-03-2023 Estimated GFR (CKD-EPI) > 60.0 mL/Min [facility] Creatinine Clearance (Chem N/A [facility] Potassium [Moles/volume] in Serum or PlasmaOrdered By: Anibal Chaudhary on 11-03-2023 Potassium [Moles/Vol] 4.5 mmol/L 3.5-5.1 [facility] Comment on above: Performed By: #### V ITD+D2+D3, THYROID PROF II #### [facility] , #### CMP, CBC #### [address] Protein [Mass/volume] in Ser um or PlasmaOrdered By: Anibal Chaudhary on 11-03-2023 Protein [Mass/Vol] 6.8 g/dL 6.4-8.9 [facility] Comment on above: Performed By: #### V ITD+D2+D3, THYROID PROF II #### [facility] , #### CMP, CBC #### [facility] [address] [place] [address] Serum globulin measurement b y calculation (mass/volume)Ordered By: Anibal Chaudhary on 11-03-2023 Globulin (S) [Mass/Vol] 2.6 g/dL [facility] Comment on above: Performed By: #### V ITD+D2+D3, THYROID PROF II #### [facility] , #### CMP, CBC #### [facility] [address] [place] [address] Serum or plasma albumin/glob ulin mass ratioOrdered By: Anibal Chaudhary on 11-03-2023 Albumin/Globulin [Mass ratio] 1.6 {ratio} [facility] Comment on above: Performed By: #### V ITD+D2+D3, THYROID PROF II #### [facility] , #### CMP, CBC #### [facility] [address] [place] [address] Serum or plasma anion gap de terminationOrdered By: Anibal Chaudhary on 11-03-2023 Anion gap [Moles/Vol] 10.3 mmol/L 6.0-15.0 [facility] Comment on above: Performed By: #### V ITD+D2+D3, THYROID PROF II #### [facility] , #### CMP, CBC #### [facility] [address] [place] [address] Serum or plasma high density lipoprotein (HDL) cholesterol measurementOrdered By: Anibal Chaudhary on 11-03-2023 Cholesterol in HDL [Mass/Vol] 56 mg/dL [facility] Comment on above: HDL CHOL ATP-III CLA SSIFICATION Cardiovascular RiskHDL > or equal to 60 mg/dL LOWHDL < 40 mg/dL HIGH Result Comment: HDL CHOL ATP-III CLASSIFICATION Cardiovascular Risk HDL > or equal to 60 mg/dL LOW HDL < 40 mg/dL HIGH Performed By: #### V ITD+D2+D3, THYROID PROF II #### [facility] , #### CMP, CBC #### [facility] [address] [place] [address] Serum or plasma total choles terol/high density lipoprotein (HDL) cholesterol mass ratOrdered By: Anibal Chaudhary on 11-03-2023 Cholesterol.total/Chol esterol in HDL [Mass ratio] 2.9 {ratio} <5.0 [facility] Comment on above: Performed By: #### V ITD+D2+D3, THYROID PROF II #### [facility] , #### CMP, CBC #### [facility] [address] [place] [address] Sodium [Moles/volume] in Ser um or PlasmaOrdered By: Anibal Chaudhary on 11-03-2023 Sodium [Moles/Vol] 133 mmol/L Low 136-145 [facility] Comment on above: Performed By: #### V ITD+D2+D3, THYROID PROF II #### [facility] , #### CMP, CBC #### [address] Thyroid Stim Hormone w/Rflxo n 11-03-2023 Thyroid Stim Hormone w/Rflx 1.79 u[iU]/mL Normal 0.45-5.33 [facility] Comment on above: Result Comment: PERF ORMED BY: [place] [address] PATHOLOGIST TEXTILE COLORIST DYER HARVINDER GAGE M.D. Performed By: #### V ITD+D2+D3, THYROID PROF II #### [facility] , #### CMP, CBC #### [facility] [address] [place] [address] Thyrotropin [Units/volume] i n Serum or PlasmaOrdered By: Anibal Chaudhary on 11-03-2023 TSH Qn 1.79 m[IU]/L 0.45-5.33 [facility] Thyroxine (T4) free [Mass/vo lume] in Serum or PlasmaOrdered By: Anibal Chaudhary on 11-03-2023 Free T4 [Mass/Vol] 0.92 ng/dL 0.61-1.12 [facility] Comment on above: Performed By: #### V ITD+D2+D3, THYROID PROF II #### [facility] , #### CMP, CBC #### [facility] [address] [place] [address] Triglyceride [Mass/volume] i n Serum or PlasmaOrdered By: Anibal Chaudhary on 11-03-2023 Triglyceride [Mass/Vol] 101 mg/dL 0-149 [facility] Comment on above: TRIG ATP III CLASSIF ICATIONTRIG less than 150 mg/dL NormalTRIG 150-199 mg/dL Borderline highTRIG 200-500 mg/dL High TRIG greater than 500 mg/dL Very highStandard traceable to the Center for Disease Conrtrol and Prevention (CDC) test method. Urea nitrogen [Mass/volume] in Serum or PlasmaOrdered By: Anibal Chaudhary on 11-03-2023 Urea nitrogen [Mass/Vol] 20 mg/dL 7 [facility] Comment on above: Performed By: #### V ITD+D2+D3, THYROID PROF II #### [facility] , #### CMP, CBC #### [facility] [address] Basophils Auto (Bld) [#/Vol] on 09-07-2023 Basophils (Bld) [#/Vol] 0.1 10 3/uL 0.0-0.1 [facility] Basophils/100 WBC Auto (Bld) on 09-07-2023 Basophils/100 WBC (Bld) 1.0 % 0.2-2.0 [facility] Eosinophils/100 WBC Auto (Bl d)on 09-07-2023 Eosinophils/100 WBC (Bld) 0.0 % Low 0.9-7.0 [facility] Erythrocyte distribution wid th Auto (RBC) [Ratio]on 09-07-2023 Erythrocyte distribution width (RBC) [Ratio] 12.2 % 11.0-15.0 [facility] Estimated glomerular filtrat ion rate (GFR) non- Americanon 09-07-2023 GFR/1.73 sq M.predicted among non-blacks MDRD (S/P/Bld) [Vol rate/Area] mL/min/{1.73_m2} >=60 [facility] Globulin Calc (S) [Mass/Vol] on 09-07-2023 Globulin (S) [Mass/Vol] 3.6 g/dL [facility] Hematocrit Auto (Bld) [Volum e fraction]on 06-16-2024 Hematocrit (Bld) [Volume fraction] 38.5 % 36.0-48.0 [facility] Hemoglobin [Mass/volume] in Bloodon 09-07-2023 Hemoglobin (Bld) [Mass/Vol] 13.3 g/dL 12.0-16.0 [facility] Laboratory - Chemistry and C hemistry - challengeon 09-07-2023 Albumin [Mass/Vol] 3.6 g/dL 3.4-5.0 [facility] ALP [Catalytic activity/Vol] 84 U/L 46-116 [facility] ALT [Catalytic activity/Vol] 19 U/L 14-59 [facility] AST [Catalytic activity/Vol] 16 U/L 15-37 [facility] Bilirubin [Mass/Vol] 0.4 mg/dL 0.2-1.0 [facility] Calcium [Mass/Vol] 8.9 mg/dL 8.5-10.1 [facility] Chloride [Moles/Vol] 96 mmol/L Low 98-107 [facility] CO2 [Moles/Vol] 31.7 mmol/L 21.0-32.0 [facility] Creatinine [Mass/Vol] 0.91 mg/dL 0.55-1.02 [facility] GFR/1.73 sq M.predicted MDRD (S/P/Bld) [Vol rate/Area] mL/min/{1.73_m2} >=60 [facility] Glucose [Mass/Vol] 108 mg/dL High 74-106 [facility] Potassium [Moles/Vol] 4.2 mmol/L 3.5-5.1 [facility] Protein [Mass/Vol] 7.2 g/dL 6.4-8.2 [facility] Sodium [Moles/Vol] 130 mmol/L Low 136-145 [facility] Urea nitrogen [Mass/Vol] 15.0 mg/dL 7.0-18.0 [facility] Urea nitrogen/Creatinine [Mass ratio] 16.5 mg/mg [facility] Laboratory - Hematology and Cell countson 09-07-2023 Immature granulocytes/100 WBC (Bld) 0.3 % 0.0-0.5 [facility] Leukocytes [#/volume] correc chantelle for nucleated erythrocytes in Blood by Automated counon 09-07-2023 WBC corrected for nucl RBC Auto (Bld) [#/Vol] 6.3 10 3/uL 4.0-11.0 [facility] Lymphocytes Auto (Bld) [#/Vo l]on 09-07-2023 Lymphocytes (Bld) [#/Vol] 1.4 10 3/uL 1.2-3.8 [facility] Lymphocytes/100 WBC Auto (Bl d)on 09-07-2023 Lymphocytes/100 WBC (Bld) 22.4 % 20.5-60.0 [facility] MCH Auto (RBC) [Entitic mass ]on 09-07-2023 MCH (RBC) [Entitic mass] 30.9 pg 26.7-34.0 [facility] MCHC Auto (RBC) [Mass/Vol]on 09-07-2023 MCHC (RBC) [Mass/Vol] 34.5 g/dL 29.9-35.2 [facility] MCV Auto (RBC) [Entitic vol] on 09-07-2023 MCV (RBC) [Entitic vol] 89.5 fL 81.0-99.0 [facility] Monocytes Auto (Bld) [#/Vol] on 09-07-2023 Monocytes (Bld) [#/Vol] 0.4 10 3/uL 0.3-0.8 [facility] Monocytes/100 WBC Auto (Bld) on 09-07-2023 Monocytes/100 WBC (Bld) 6.6 % 1.7-12.0 [facility] Neutrophils Auto (Bld) [#/Vo l]on 09-07-2023 Neutrophils (Bld) [#/Vol] 4.4 10 3/uL 1.4-6.5 [facility] Neutrophils/100 WBC Auto (Bl d)on 09-07-2023 Neutrophils/100 WBC (Bld) 69.7 % 43.0-75.0 [facility] No Panel Informationon 09-06 Eosinophils # (Auto) 0.0 10 3/uL 0.0-0.7 [facility] Immature Granulocyte # (Auto) 0.02 10 3/uL 0.00-0.03 [facility] Platelet mean volume Auto (B ld) [Entitic vol]on 09-07-2023 Platelet mean volume (Bld) [Entitic vol] 8.6 fL Low 9.5-13.5 [facility] Platelets Auto (Bld) [#/Vol] on 09-07-2023 Platelets (Bld) [#/Vol] 233 10 3/uL 150-450 [facility] RBC Auto (Bld) [#/Vol]on RBC (Bld) [#/Vol] 4.30 10 6/uL 4.20-5.40 [facility] Serum or plasma albumin/glob ulin mass ratioon 09-07-2023 Albumin/Globulin [Mass ratio] 1.0 {ratio} [facility] Serum or plasma anion gap de terminationon 09-07-2023 Anion gap [Moles/Vol] 6.5 mmol/L [facility] Basophils Auto (Bld) [#/Vol] on 08-19-2023 Basophils (Bld) [#/Vol] 0.1 10 3/uL 0.0-0.1 [facility] Basophils/100 WBC Auto (Bld) on 08-19-2023 Basophils/100 WBC (Bld) 1.3 % 0.2-2.0 [facility] Eosinophils/100 WBC Auto (Bl d)on 08-19-2023 Eosinophils/100 WBC (Bld) 0.0 % Low 0.9-7.0 [facility] Erythrocyte distribution wid th Auto (RBC) [Ratio]on 08-19-2023 Erythrocyte distribution width (RBC) [Ratio] 12.1 % 11.0-15.0 [facility] Estimated glomerular filtrat ion rate (GFR) non- Americanon 08-19-2023 GFR/1.73 sq M.predicted among non-blacks MDRD (S/P/Bld) [Vol rate/Area] mL/min/{1.73_m2} >=60 [facility] Hematocrit Auto (Bld) [Volum e fraction]on 08-19-2023 Hematocrit (Bld) [Volume fraction] 40.6 % 36.0-48.0 [facility] Hemoglobin [Mass/volume] in Bloodon 08-19-2023 Hemoglobin (Bld) [Mass/Vol] 13.8 g/dL 12.0-16.0 [facility] Laboratory - Chemistry and C hemistry - challengeon 08-19-2023 Calcium [Mass/Vol] 8.8 mg/dL 8.5-10.1 [facility] Chloride [Moles/Vol] 96 mmol/L Low 98-107 [facility] CO2 [Moles/Vol] 30.6 mmol/L 21.0-32.0 [facility] Creatinine [Mass/Vol] 0.89 mg/dL 0.55-1.02 [facility] Free T4 [Mass/Vol] 0.87 ng/dL 0.76-1.46 [facility] GFR/1.73 sq M.predicted MDRD (S/P/Bld) [Vol rate/Area] mL/min/{1.73_m2} >=60 [facility] Glucose [Mass/Vol] 116 mg/dL High 74-106 [facility] Natriuretic peptide B (Bld) [Mass/Vol] 490.0 pg/mL <=900.0 [facility] Potassium [Moles/Vol] 4.4 mmol/L 3.5-5.1 [facility] Sodium [Moles/Vol] 133 mmol/L Low 136-145 [facility] TSH Qn 4.910 m[IU]/L High 0.358-3.740 [facility] Urea nitrogen [Mass/Vol] 20.0 mg/dL High 7.0-18.0 [facility] Urea nitrogen/Creatinine [Mass ratio] 22.5 mg/mg [facility] Bilirubin Ql (U) Negative NEGATIVE [facility] Glucose (U) [Mass/Vol] Negative NEGATIVE [facility] Ketones Ql (U) Negative NEGATIVE [facility] pH (U) 7.0 [pH] 5.0-9.0 [facility] Specific gravity (U) [Rel density] 1.010 1.005-1.025 [facility] Urobilinogen Qn (U) 0.2 {Lenny'U}/dL 0.2-1.0 [facility] Laboratory - Hematology and Cell countson 08-19-2023 Immature granulocytes/100 WBC (Bld) 0.5 % 0.0-0.5 [facility] - Specimen inform ationon 08-19-2023 Appearance (U) CLEAR CLEAR [facility] Color (U) LT. YELLOW YELLOW [facility] - Urinalysison Leukocyte esterase Test strip Ql (U) Negative NEGATIVE [facility] Nitrite Ql (U) Negative NEGATIVE [facility] Protein Ql (U) Negative NEG/TRACE [facility] Leukocytes [#/volume] correc chantelle for nucleated erythrocytes in Blood by Automated counon 08-19-2023 WBC corrected for nucl RBC Auto (Bld) [#/Vol] 7.5 10 3/uL 4.0-11.0 [facility] Lymphocytes Auto (Bld) [#/Vo l]on 08-19-2023 Lymphocytes (Bld) [#/Vol] 1.6 10 3/uL 1.2-3.8 [facility] Lymphocytes/100 WBC Auto (Bl d)on 08-19-2023 Lymphocytes/100 WBC (Bld) 21.2 % 20.5-60.0 [facility] MCH Auto (RBC) [Entitic mass ]on 08-19-2023 MCH (RBC) [Entitic mass] 31.0 pg 26.7-34.0 [facility] MCHC Auto (RBC) [Mass/Vol]on 08-19-2023 MCHC (RBC) [Mass/Vol] 34.0 g/dL 29.9-35.2 [facility] MCV Auto (RBC) [Entitic vol] on 08-19-2023 MCV (RBC) [Entitic vol] 91.2 fL 81.0-99.0 [facility] Monocytes Auto (Bld) [#/Vol] on 08-19-2023 Monocytes (Bld) [#/Vol] 0.5 10 3/uL 0.3-0.8 [facility] Monocytes/100 WBC Auto (Bld) on 08-19-2023 Monocytes/100 WBC (Bld) 6.4 % 1.7-12.0 [facility] Neutrophils Auto (Bld) [#/Vo l]on 08-19-2023 Neutrophils (Bld) [#/Vol] 5.3 10 3/uL 1.4-6.5 [facility] Neutrophils/100 WBC Auto (Bl d)on 08-19-2023 Neutrophils/100 WBC (Bld) 70.6 % 43.0-75.0 [facility] No Panel Informationon 08-18 Eosinophils # (Auto) 0.0 10 3/uL 0.0-0.7 [facility] Immature Granulocyte # (Auto) 0.04 10 3/uL High 0.00-0.03 [facility] Urine Occult Blood TRACE-L NEGATIVE [facility] Platelet mean volume Auto (B ld) [Entitic vol]on 08-19-2023 Platelet mean volume (Bld) [Entitic vol] 9.0 fL Low 9.5-13.5 [facility] Platelets Auto (Bld) [#/Vol] on 08-19-2023 Platelets (Bld) [#/Vol] 259 10 3/uL 150-450 [facility] RBC Auto (Bld) [#/Vol]on RBC (Bld) [#/Vol] 4.45 10 6/uL 4.20-5.40 [facility] Serum or plasma anion gap de terminationon 08-19-2023 Anion gap [Moles/Vol] 10.8 mmol/L [facility] Alanine aminotransferase [En zymatic activity/volume] in Serum or PlasmaOrdered By: Pam Wagoner on 07-08-2023 ALT [Catalytic activity/Vol] 13 U/L Normal 7-52 [facility] Comment on above: Performed By: #### V ITD+D2+D3, THYROID PROF II #### [facility] , #### CMP, CBC #### [facility] [address] [place] [address] Albumin [Mass/volume] in Ser um or Plasma by Bromocresol green (BCG) dye binding methoOrdered By: Pam Wagoner on 07-08-2023 Albumin BCG dye [Mass/Vol] 4.7 g/dL 3.5-5.7 [facility] Alkaline phosphatase [Enzyma tic activity/volume] in Serum or PlasmaOrdered By: Pam Wagoner on 07-08-2023 ALP [Catalytic activity/Vol] 72 U/L Normal 34-104 [facility] Comment on above: Result Comment: PERF ORMED BY: [place] [address] PATHOLOGIST TEXTILE COLORIST DYER HARVINDER GAGE M.D. Performed By: #### V ITD+D2+D3, THYROID PROF II #### [facility] , #### CMP, CBC #### [facility] [address] [place] [address] Aspartate aminotransferase [ Enzymatic activity/volume] in Serum or PlasmaOrdered By: Pam Wagoner on 07-08-2023 AST [Catalytic activity/Vol] 18 U/L Normal 13-39 [facility] Comment on above: Performed By: #### V ITD+D2+D3, THYROID PROF II #### [facility] , #### CMP, CBC #### [facility] [address] [place] [address] Automated basophil %Ordered By: Pam Wagoner on 07-08-2023 Basophils/100 WBC (Bld) 1.2 % Normal . [facility] Comment on above: Performed By: #### V ITD+D2+D3, THYROID PROF II #### [facility] , #### CMP, CBC #### [facility] [address] [place] [address] Automated basophil countOrde red By: Pam Wagoner on 07-08-2023 Basophils (Bld) [#/Vol] 0.1 10*3/uL Normal 0.0-0.2 [facility] Comment on above: Result Comment: PERF ORMED BY: [place] [address] PATHOLOGIST TEXTILE COLORIST DYER HARVINDER GAGE M.D. Performed By: #### V ITD+D2+D3, THYROID PROF II #### [facility] , #### CMP, CBC #### [address] Automated blood monocyte cou ntOrdered By: Pam Wagoner on 07-08-2023 Monocytes (Bld) [#/Vol] 0.5 10*3/uL Normal 0.0-0.8 [facility] Comment on above: Performed By: #### V ITD+D2+D3, THYROID PROF II #### [facility] , #### CMP, CBC #### [address] Automated eosinophil %Ordere d By: Pam Wagoner on 07-08-2023 Eosinophils/100 WBC (Bld) 0.0 % Normal . [facility] Comment on above: Performed By: #### V ITD+D2+D3, THYROID PROF II #### [facility] , #### CMP, CBC #### [address] Automated eosinophil countOr dered By: Pam Wagoner on 07-08-2023 Eosinophils (Bld) [#/Vol] 0.0 10*3/uL Normal 0.0-0.45 [facility] Comment on above: Performed By: #### V ITD+D2+D3, THYROID PROF II #### [facility] , #### CMP, CBC #### [address] Automated monocyte %Ordered By: Pam Wagoner on 07-08-2023 Monocytes/100 WBC (Bld) 7.8 % Normal . [facility] Comment on above: Performed By: #### V ITD+D2+D3, THYROID PROF II #### [facility] , #### CMP, CBC #### [address] Automated neutrophil %Ordere d By: Pam Wagoner on 07-08-2023 Neutrophils/100 WBC (Bld) 65.2 % Normal . [facility] Comment on above: Performed By: #### V ITD+D2+D3, THYROID PROF II #### [facility] , #### CMP, CBC #### [facility] [address] [place] [address] Bilirubin.total [Mass/volume ] in Serum or PlasmaOrdered By: Pam Wagoner on 07-08-2023 Bilirubin [Mass/Vol] 0.3 mg/dL Normal 0.3-1.0 [facility] Comment on above: Performed By: #### V ITD+D2+D3, THYROID PROF II #### [facility] , #### CMP, CBC #### [address] Calcium [Mass/volume] in Ser um or PlasmaOrdered By: Pam Wagoner on 07-08-2023 Calcium [Mass/Vol] 9.9 mg/dL Normal 8.6-10.3 [facility] Comment on above: Performed By: #### V ITD+D2+D3, THYROID PROF II #### [facility] , #### CMP, CBC #### [facility] [address] [place] [address] Carbon dioxide, total [Moles /volume] in Serum or PlasmaOrdered By: Pam Wagoner on 07-08-2023 CO2 [Moles/Vol] 31.5 mmol/L High 21.0-31.0 [facility] Comment on above: Performed By: #### V ITD+D2+D3, THYROID PROF II #### [facility] , #### CMP, CBC #### [facility] [address] [place] [address] [place] Chloride [Moles/volume] in S davi or PlasmaOrdered By: Pam Wagoner on 07-08-2023 Chloride [Moles/Vol] 100 mmol/L Normal 98-107 [facility] Comment on above: Performed By: #### V ITD+D2+D3, THYROID PROF II #### [facility] , #### CMP, CBC #### [address] Complete Blood Count Auto Di ffon 07-08-2023 Mean Corpuscular HGB Conc 34.0 g/dL Normal 32.0-35.0 [facility] Comment on above: Performed By: #### V ITD+D2+D3, THYROID PROF II #### [facility] , #### CMP, CBC #### [facility] [address] [place] [address] NRBC% 0.1 /100{WBC} Normal 0-0.5 [facility] Comment on above: Performed By: #### V ITD+D2+D3, THYROID PROF II #### [facility] , #### CMP, CBC #### [address] Comprehensive Metabolic Pane kirit 07-08-2023 Albumin [Mass/Vol] 4.7 g/dL Normal 3.5-5.7 [facility] Comment on above: Performed By: #### V ITD+D2+D3, THYROID PROF II #### [facility] , #### CMP, CBC #### [facility] [address] [place] [address] [place] GFR/1.73 sq M.predicted MDRD (S/P/Bld) [Vol rate/Area] mL/min/{1.73_m2} Normal [facility] Comment on above: Performed By: #### V ITD+D2+D3, THYROID PROF II #### [facility] , #### CMP, CBC #### [facility] [address] [place] [address] [place] Creatinine [Mass/volume] in Serum or PlasmaOrdered By: Pam Wagoner on 07-08-2023 Creatinine [Mass/Vol] 0.96 mg/dL Normal 0.60-1.20 [facility] Comment on above: Performed By: #### V ITD+D2+D3, THYROID PROF II #### [facility] , #### CMP, CBC #### [facility] [address] Erythrocyte distribution wid th [Ratio] by Automated countOrdered By: Pam Wagoner on 07-08-2023 Erythrocyte distribution width (RBC) [Ratio] 12.9 % Normal 11.9-15.3 [facility] Comment on above: Performed By: #### V ITD+D2+D3, THYROID PROF II #### [facility] , #### CMP, CBC #### [facility] [address] Erythrocytes [#/volume] in B lood by Automated countOrdered By: Pam Wagoner on 07-08-2023 RBC (Bld) [#/Vol] 4.72 10*6/uL Normal 3.60-5.00 [facility] Comment on above: Performed By: #### V ITD+D2+D3, THYROID PROF II #### [facility] , #### CMP, CBC #### [facility] [address] [place] [address] Free thyroxine indexOrdered By: Pam Wagoner on 07-08-2023 Free T4 index Calc [Mass/Vol] 1.8 1.2-4.9 [facility] Glucose [Mass/volume] in Ser um or PlasmaOrdered By: Pam Wagoner on 07-08-2023 Glucose [Mass/Vol] 109 mg/dL High 70-100 [facility] Comment on above: ADA recommended refe rence rangeRandom Glucose Reference Range is dependent on time and content of last meal. Glucose of more than 200 mg/dL in a nonstressed, ambulatory subject supports the diagnosis of Diabetes Mellitus. Result Comment: [place] om Glucose Reference Range is dependent on time and content of last meal. Glucose of more than 200 mg/dL in a nonstressed, ambulatory subject supports the diagnosis of Diabetes Mellitus. ADA recommended reference range Performed By: #### V ITD+D2+D3, THYROID PROF II #### [facility] , #### CMP, CBC #### [address] Hematocrit [Volume Fraction] of Blood by Automated countOrdered By: Pam Wagoner on 07-08-2023 Hematocrit (Bld) [Volume fraction] 43.4 % Normal 34.0-46.4 [facility] Comment on above: Performed By: #### V ITD+D2+D3, THYROID PROF II #### [facility] , #### CMP, CBC #### [address] Hemoglobin [Mass/volume] in BloodOrdered By: Pam Wagoner on 07-08-2023 Hemoglobin (Bld) [Mass/Vol] 14.7 g/dL Normal 11.8-15.4 [facility] Comment on above: Performed By: #### V ITD+D2+D3, THYROID PROF II #### [facility] , #### CMP, CBC #### [address] Leukocytes [#/volume] correc chantelle for nucleated erythrocytes in Blood by Automated counOrdered By: Pam Wagoner on 07-08-2023 WBC corrected for nucl RBC Auto (Bld) [#/Vol] 6.7 10*3/uL 3.8-11.6 [facility] Leukocytes [#/volume] in Blo od by Automated countOrdered By: Pam Wagoner on 07-08-2023 WBC (Bld) [#/Vol] 6.7 10*3/uL Normal 3.8-11.6 [facility] Comment on above: Performed By: #### V ITD+D2+D3, THYROID PROF II #### [facility] , #### CMP, CBC #### [facility] [address] [place] [address] [place] Lymphocytes [#/volume] in Bl ood by Automated countOrdered By: Pam Wagoner on 07-08-2023 Lymphocytes (Bld) [#/Vol] 1.7 10*3/uL Normal 1.00-4.8 [facility] Comment on above: Performed By: #### V ITD+D2+D3, THYROID PROF II #### [facility] , #### CMP, CBC #### [address] Lymphocytes/100 leukocytes i n Blood by Automated countOrdered By: Pam Wagoner on 07-08-2023 Lymphocytes/100 WBC (Bld) 25.8 % Normal . [facility] Comment on above: Performed By: #### V ITD+D2+D3, THYROID PROF II #### [facility] , #### CMP, CBC #### [address] MCH [Entitic mass] by Automa chantelle countOrdered By: Pam Wagoner on 07-08-2023 MCH (RBC) [Entitic mass] 31.2 pg Normal 24.7-34.3 [facility] Comment on above: Performed By: #### V ITD+D2+D3, THYROID PROF II #### [facility] , #### CMP, CBC #### [address] MCHC Auto (RBC) [Mass/Vol]Or dered By: Pam Wagoner on 07-08-2023 MCHC (RBC) [Mass/Vol] 34.0 g/dL 32.0-35.0 [facility] MCV [Entitic volume] by Auto mated countOrdered By: Pam Wagoner on 07-08-2023 MCV (RBC) [Entitic vol] 92.0 fL Normal 80-100 [facility] Comment on above: Performed By: #### V ITD+D2+D3, THYROID PROF II #### [facility] , #### CMP, CBC #### [place] [address] [place] Neutrophils [#/volume] in Bl ood by Automated countOrdered By: Pam Wagoner on 07-08-2023 Neutrophils (Bld) [#/Vol] 4.3 10*3/uL Normal 1.8-7.7 [facility] Comment on above: Performed By: #### V ITD+D2+D3, THYROID PROF II #### [facility] , #### CMP, CBC #### [facility] [address] [place] [address] No Panel InformationOrdered By: Pam Wagoner on 07-08-2023 Estimated GFR (CKD-EPI) > 60.0 mL/Min [facility] Free Thyroxine (T4) Direct 7.5 ug/dL 4.5-12.0 [facility] Creatinine Clearance (Chem N/A [facility] Nucleated erythrocytes [Pres ence] in Blood by Automated countOrdered By: Pam Wagoner on 07-08-2023 Nucleated RBC Auto Ql (Bld) 0.1 /100{WBC} 0-0.5 [facility] Platelet mean volume [Entiti c volume] in Blood by Automated countOrdered By: Pam Wagoner on 07-08-2023 Platelet mean volume (Bld) [Entitic vol] 7.8 fL Normal 6.3-10.7 [facility] Comment on above: Performed By: #### V ITD+D2+D3, THYROID PROF II #### [facility] , #### CMP, CBC #### [facility] [address] [place] [address] [place] Platelets [#/volume] in Bloo d by Automated countOrdered By: Pam Wagoner on 07-08-2023 Platelets (Bld) [#/Vol] 278 10*3/uL Normal 150-450 [facility] Comment on above: Performed By: #### V ITD+D2+D3, THYROID PROF II #### [facility] , #### CMP, CBC #### [facility] [address] [place] [address] [place] Potassium [Moles/volume] in Serum or PlasmaOrdered By: Pam Wagoner on 07-08-2023 Potassium [Moles/Vol] 4.7 mmol/L Normal 3.5-5.1 [facility] Comment on above: Performed By: #### V ITD+D2+D3, THYROID PROF II #### [facility] , #### CMP, CBC #### [facility] [address] Protein [Mass/volume] in Ser um or PlasmaOrdered By: Pam Wagoner on 07-08-2023 Protein [Mass/Vol] 7.5 g/dL Normal 6.4-8.9 [facility] Comment on above: Performed By: #### V ITD+D2+D3, THYROID PROF II #### [facility] , #### CMP, CBC #### [facility] [address] Serum globulin measurement b y calculation (mass/volume)Ordered By: Pam Wagoner on 07-08-2023 Globulin (S) [Mass/Vol] 2.8 g/dL [facility] Comment on above: Performed By: #### V ITD+D2+D3, THYROID PROF II #### [facility] , #### CMP, CBC #### [facility] [address] [place] [address] Serum or plasma 25-hydroxyca lciferol measurement (mass/volume)Ordered By: Pam Wagoner on 07-08-2023 25-hydroxyvitamin D2 [Mass/Vol] <1.0 ng/mL . [facility] Comment on above: This test was develo ped and its performance characteristicsdetermined by [facility]. It has not been cleared or approvedby the Food and Drug Administration. Serum or plasma 25-hydroxyvi tamin D measurement (mass/volume)Ordered By: Pam Wagoner on 07-08-2023 25-hydroxyvitamin D [Mass/Vol] 6.8 ng/mL . [facility] Comment on above: Reference Range:All Ages: Target levels 30 - 100 Serum or plasma albumin/glob ulin mass ratioOrdered By: Pam Wagoner on 07-08-2023 Albumin/Globulin [Mass ratio] 1.7 {ratio} [facility] Comment on above: Performed By: #### V ITD+D2+D3, THYROID PROF II #### [facility] , #### CMP, CBC #### [facility] [address] [place] [address] Serum or plasma anion gap de terminationOrdered By: Pam Wagoner on 07-08-2023 Anion gap [Moles/Vol] 9.2 mmol/L Normal 6.0-15.0 [facility] Comment on above: Performed By: #### V ITD+D2+D3, THYROID PROF II #### [facility] , #### CMP, CBC #### [facility] [address] [place] [address] Serum or plasma calcidiol me asurement (mass/volume)Ordered By: Pam Wagoner on 07-08-2023 25-hydroxyvitamin D3 [Mass/Vol] 6.8 ng/mL . [facility] Comment on above: This test was develo ped and its performance characteristicsdetermined by [facility]. It has not been cleared or approvedby the Food and Drug Administration.Performed at: [facility] [address] [id number] Director: Santos Chahal MD, Phone: [phone] Serum or plasma thyroid stim ulating hormone (TSH) measurement by high sensitivity metOrdered By: Pam Wagoner on 07-08-2023 TSH Qn 5.980 m[IU]/L High 0.450-4.500 [facility] Comment on above: Result Comment: PERF ORMED BY: [place] [address] PATHOLOGIST TEXTILE COLORIST DYER HARVINDER GAGE M.D. Performed By: #### V ITD+D2+D3, THYROID PROF II #### [facility] , #### CMP, CBC #### [facility] [address] [place] [address] Sodium [Moles/volume] in Ser um or PlasmaOrdered By: Pam Wagoner on 07-08-2023 Sodium [Moles/Vol] 136 mmol/L Normal 136-145 [facility] Comment on above: Performed By: #### V ITD+D2+D3, THYROID PROF II #### [facility] , #### CMP, CBC #### [facility] [address] [place] [address] T3 uptakeOrdered By: Pam Wagoner on 07-08-2023 T3RU 24 % 24-39 [facility] Thyroid Profile IIon 024 Free Thyroxine Index 1.8 Normal 1.2-4.9 [facility] Comment on above: Performed By: #### V ITD+D2+D3, THYROID PROF II #### [facility] , #### CMP, CBC #### [address] Lab [place] Triiodothyronine,(T3) 124 ng/dL Normal 71-180 [facility] Comment on above: Result Comment: Perf ormed at: - [facility] [address] [id number] Supervisor Incising: Spencer Martinez PhD, Phone: [phone] Performed By: #### V ITD+D2+D3, THYROID PROF II #### [facility] , #### CMP, CBC #### [facility] [address] [place] [address] T4 [Mass/Vol] 7.5 ug/dL Normal 4.5-12.0 [facility] Comment on above: Performed By: #### V ITD+D2+D3, THYROID PROF II #### [facility] , #### CMP, CBC #### [facility] [address] [place] [address] Triiodothryronine (T3) Uptake 24 % Normal 24-39 [facility] Comment on above: Performed By: #### V ITD+D2+D3, THYROID PROF II #### [facility] , #### CMP, CBC #### [facility] [address] [place] [address] [place] Triiodothyronine (T3) [Mass/ volume] in Serum or PlasmaOrdered By: Pam Wagoner on 07-08-2023 T3 [Mass/Vol] 124 ng/dL 71-180 [facility] Comment on above: Performed at: CB [facility] [id number] [place], [place] [id number] Director: Spencer Martinez PhD, Phone: [phone] Urea nitrogen [Mass/volume] in Serum or PlasmaOrdered By: Pam Wagoner on 07-08-2023 Urea nitrogen [Mass/Vol] 26 mg/dL High 7-25 [facility] Comment on above: Performed By: #### V ITD+D2+D3, THYROID PROF II #### [facility] , #### CMP, CBC #### [place] [address] [place] Vitamin D 25 Hydroxy,Tot+D2+ D3on 07-08-2023 Lab [place] Vitamin D 25 [place] 6.8 ng/mL Low . [facility] Comment on above: Result Comment: Refe rence Range: All Ages: Target levels 30 - 100 Performed By: #### V ITD+D2+D3, THYROID PROF II #### [facility] , #### CMP, CBC #### [address] Vitamin D-2 <1.0 Normal . [facility] Comment on above: Result Comment: This test was developed and its performance characteristics determined by [facility]. It has not been cleared or approved by the Food and Drug Administration. Performed By: #### V ITD+D2+D3, THYROID PROF II #### [facility] , #### CMP, CBC #### [facility] [address] [place] [address] Vitamin D-3 6.8 ng/mL Normal . [facility] Comment on above: Result Comment: This test was developed and its performance characteristics determined by [facility]. It has not been cleared or approved by the Food and Drug Administration. Performed at: [facility] [address] [place], [place] [id number] Supervisor Incising: Santos Chahal MD, Phone: [phone] PERFORMED BY: [place] [address] PATHOLOGIST TEXTILE COLORIST DYER HARVINDER GAGE M.D. Performed By: #### V ITD+D2+D3, THYROID PROF II #### [facility] , #### CMP, CBC #### [facility] [address] [id number] [facility] Progress Note - Nutritionon 06-04-2023 Progress Note - Nutrition Pt is here today for an initial DM MNT appt. Pt has had diabetes for two years. 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 Referral of Care: [...] f/u fo (more content not included)... Normal [facility] BD Bone Density DEXAon 05-29 BD Bone [...] MD, V. Transcribed by: EUSEBIA Technologist: SENIA [facility] Consent for Treatmenton Consent for Treatment [id number]#1.00TIFF [facility] Consent for Treatment [id number]#1.00TIFF [facility] Physician Orderon 05-20-2023 Physician Order [id number]#1.00TIFF [facility] Physician Referralon 024 Physician Referral [id number]#[id number] [facility] community outreach lela negron 02-28-2023 community outreach [facility] [address] Ultrasound Report Signed Patient: Ruma Carlton MR#: [id number] : 1960 Acct:[id number] Age/Sex: 62 / F ADM Date: 02/25/23 Loc: Room: Type: DEP REF Attending Dr: Colin Soto Ordering Provider: COLIN SOTO Date of Service: 02/25/23 /[facility] carotid: SCREENING [facility] CAR[facility]LEX INDICATION: [facility] screening program. PROCEDURE: Color-flow duplex scanning is [...] is 1.4 . /[facility] carotid IMPRESSION: NO HEMODYNAMICALLY SIGNIFICANT STENOSIS OF EITHER EXTRACRANIAL INTERNAL CAROTID ARTERY. BOTH VERTEBRAL ARTERIES ARE PATENT WITH ANTEGRADE FLOW. Impression dictated by: Carmelita Holman MD02/28/2023 10:51 AM Dictation Location: [place] [address] Tech: Ruby Hutchison Transcribed By: CHRISTIAN 02/28/23 1051 Dictated By: Carmelita Holman MD 02/28/23 1050 Signed By: 02/28/23 1051 Normal [facility] Basic Metabolic Panelon 10-0 Creatinine Clr Calc Pharmacy 103.69 Normal [facility] Comment on above: Result Comment: PERF ORMED BY: [place] [address] PATHOLOGIST TEXTILE COLORIST DYER HARVINDER GAGE M.D. Performed By: #### B MP #### [place] [address] [place] GFR/1.73 sq M.predicted MDRD (S/P/Bld) [Vol rate/Area] mL/min/{1.73_m2} Normal [facility] Comment on above: Performed By: #### B MP #### [place] [address] [place] Calcium [Mass/volume] in Ser um or PlasmaOrdered By: Froilan Brown on 12-24-2022 Calcium [Mass/Vol] 8.8 mg/dL Normal 8.6-10.3 [facility] Comment on above: Performed By: #### B MP #### [place] [address] [place] Carbon dioxide, total [Moles /volume] in Serum or PlasmaOrdered By: Froilan Brown on 12-24-2022 CO2 [Moles/Vol] 25.8 mmol/L Normal 21.0-31.0 [facility] Comment on above: Performed By: #### B MP #### [place] [address] [place] Chloride [Moles/volume] in S davi or PlasmaOrdered By: Froilan Brown on 12-24-2022 Chloride [Moles/Vol] 104 mmol/L Normal 98-107 [facility] Comment on above: Performed By: #### B MP #### [place] [address] [place] Creatinine [Mass/volume] in Serum or PlasmaOrdered By: Froilan Brown on 12-24-2022 Creatinine [Mass/Vol] 0.61 mg/dL Normal 0.60-1.20 [facility] Comment on above: Performed By: #### B #### [address] ECG 12 lead ECGon 12-24-2022 ECG 12 lead ECG [facility] [place] [address] Electrocardiograph Report Signed Patient: Ruma Carlton MR#: [id number] : 1960 Acct:[id number] Age/Sex: 62 / F ADM Date: 12/24/22 Loc: Room: [address] [place] [address] Type: DIS INOo Attending Dr: Petr Kowalski [...] in Lateral leads Confirmed by CR [facility] ([id number]) on 12/25/2022 10:57:22 AM Referred By: Electronically Signed By:REGINA MOLINA MD [facility] Transcribed By: MUS Signed By Sukhi Molina MD 12/25/22 1057 Normal [facility] ECG 12 lead ECG [facility] [place] [address] Electrocardiograph Report Signed Patient: Ruma Carlton MR#: [id number] : 1960 Acct:[id number] Age/Sex: 62 / F ADM Date: 12/24/22 Loc: Room: [address] [place] [address] Type: DIS INOo Attending Dr: Petr Kowalski [...] is now present Confirmed by CR [facility]TE [facility] ([id number]) on 12/25/2022 10:57:18 AM Referred By: Electronically Signed By:REGINA MOLINA MD, FACC Transcribed By: MUS Signed By Sukhi Molina MD 12/25/22 1057 Normal [facility] Glucose [Mass/volume] in Ser um or PlasmaOrdered By: Froilan Brown on 12-24-2022 Glucose [Mass/Vol] 113 mg/dL High 70-100 [facility] Comment on above: ADA recommended refe rence rangeRandom Glucose Reference Range is dependent on time and content of last meal. Glucose of more than 200 mg/dL in a nonstressed, ambulatory subject supports the diagnosis of Diabetes Mellitus. Result Comment: [place] om Glucose Reference Range is dependent on time and content of last meal. Glucose of more than 200 mg/dL in a nonstressed, ambulatory subject supports the diagnosis of Diabetes Mellitus. ADA recommended reference range Performed By: #### B MP #### [address] No Panel InformationOrdered By: Froilan Brown on 12-24-2022 Estimated GFR (CKD-EPI) > 60.0 mL/Min [facility] Creatinine Clearance (Chem 103.69 [facility] Potassium [Moles/volume] in Serum or PlasmaOrdered By: Froilan Brown on 12-24-2022 Potassium [Moles/Vol] 4.3 mmol/L Normal 3.5-5.1 [facility] Comment on above: Performed By: #### B MP #### [address] Serum or plasma anion gap de terminationOrdered By: Froilan Brown on 12-24-2022 Anion gap [Moles/Vol] 9.5 mmol/L Normal 6.0-15.0 [facility] Comment on above: Performed By: #### B MP #### [address] Sodium [Moles/volume] in Ser um or PlasmaOrdered By: Froilan Brown on 12-24-2022 Sodium [Moles/Vol] 135 mmol/L Low 136-145 [facility] Comment on above: Performed By: #### B MP #### [address] Troponin I High Sensitivityo n 12-24-2022 Troponin I High Sensitivity 7.7 pg/mL Normal 0.0-15.0 [facility] Comment on above: Result Comment: PERF ORMED BY: [place] [address] PATHOLOGIST TEXTILE COLORIST DYER HARVINDER GAGE M.D. Performed By: #### V ITD+D2+D3, THYROID PROF II #### [facility] , #### CMP, CBC #### [address] Troponin I.cardiac [Mass/vol ume] in Serum or Plasma by Detection limit <= 0.01 ng/Ordered By: Froilan Brown on 12-24-2022 Troponin I.cardiac DL <= 0.01 ng/mL [Mass/Vol] 7.7 pg/mL 0.0-15.0 [facility] Urea nitrogen [Mass/volume] in Serum or PlasmaOrdered By: Froilan Brown on 12-24-2022 Urea nitrogen [Mass/Vol] 8 mg/dL Normal 7-25 [facility] Comment on above: Performed By: #### B MP #### [address] CBC AUTO DIFFon 05-27-2022 BASO # 0.1 103/ul Normal 0.0-0.1 [facility] Comment on above: Performed By: #### C BC #### [facility] [address] [place] [address] Dr. Domi Saleem Basophils/100 WBC (Bld) 1.2 % Normal 0.2-2.0 [facility] Comment on above: Performed By: #### C BC #### [facility] [address] [place] [address] Dr. Domi Saleem EO # 0.3 103/ul Normal 0.0-0.7 [facility] Comment on above: Performed By: #### C BC #### [facility] [address] [place] [address] Dr. Domi Saleem Eosinophils/100 WBC (Bld) 3.8 % Normal 0.9-7.0 [facility] Comment on above: Performed By: #### C BC #### [facility] [address] [place] [address] Dr. Domi Saleem Erythrocyte distribution width (RBC) [Ratio] 12.5 % Normal 11.0-15.0 [facility] Comment on above: Performed By: #### C BC #### [facility] [address] [place] [address] Dr. Domi Saleem Hematocrit (Bld) [Volume fraction] 42.5 % Normal 36.0-48.0 [facility] Comment on above: Performed By: #### C BC #### [facility] [address] [place] [address] Dr. Domi Saleem Hemoglobin (Bld) [Mass/Vol] 14.6 g/dL Normal 12.0-16.0 [facility] Comment on above: Performed By: #### C BC #### [facility] [address] [place] [address] Dr. Domi Saleem IG # 0.04 10e3/ul Critically high 0.00-0.03 [facility] Comment on above: Performed By: #### C BC #### [facility] [address] [place] [address] Dr. Domi Saleem IG % 0.6 % Critically high 0.0-0.5 [facility] Comment on above: Performed By: #### C BC #### [facility] [address] [place] [address] Dr. Domi Saleem LYMPH # 1.3 103/ul Normal 1.2-3.8 [facility] Comment on above: Performed By: #### C BC #### [facility] [address] [place] [address] Dr. Domi Saleem Lymphocytes/100 WBC (Bld) 18.5 % Critically low 20.5-60.0 [facility] Comment on above: Performed By: #### C BC #### [facility] [address] [place] [address] Dr. Domi Saleem MANUAL DIFF REQ NO Normal [facility] Comment on above: Performed By: #### C BC #### [facility] [address] [place] [address] Dr. Domi Saleem MCH (RBC) [Entitic mass] 31.1 pg Normal 26.7-34.0 [facility] Comment on above: Performed By: #### C BC #### [facility] [address] [place] [address] Dr. Domi Saleem MCHC (RBC) [Mass/Vol] 34.4 g/dL Normal 29.9-35.2 [facility] Comment on above: Performed By: #### C BC #### [facility] [address] [place] [address] Dr. Domi Saleem MCV (RBC) [Entitic vol] 90.4 fL Normal 81.0-99.0 [facility] Comment on above: Performed By: #### C BC #### [facility] [address] [place] [address] Dr. Domi Saleem MONO # 0.3 103/ul Normal 0.3-0.8 [facility] Comment on above: Performed By: #### C BC #### [facility] [address] [place] [address] Dr. Domi Saleem Monocytes/100 WBC (Bld) 4.2 % Normal 1.7-12.0 [facility] Comment on above: Performed By: #### C BC #### [facility] [address] [place] [address] Dr. Domi Saleem NEUT # 5.0 103/ul Normal 1.4-6.5 [facility] Comment on above: Performed By: #### C BC #### [facility] [address] [place] [address] Dr. Domi Saleem Neutrophils/100 WBC (Bld) 71.7 % Normal 43.0-75.0 [facility] Comment on above: Performed By: #### C BC #### [facility] [address] [place] [address] Dr. Domi Saleem Platelet mean volume (Bld) [Entitic vol] 8.6 fL Critically low 9.5-13.5 [facility] Comment on above: Performed By: #### C BC #### [facility] [address] [place] [address] Dr. Domi Saleem PLT 265 103/ul Normal 150-450 [facility] Comment on above: Performed By: #### C BC #### [facility] [address] [place] [address] Dr. Domi Saleem RBC 4.70 106/ul Normal 4.20-5.40 [facility] Comment on above: Performed By: #### C BC #### [facility] [address] [place] [address] Dr. Domi Saleem WBC 6.9 103/ul Normal 4.0-11.0 [facility] Comment on above: Performed By: #### C BC #### [facility] [address] [place] [address] Dr. Domi Saleem PROF 14(COMP METB)on 023 Albumin [Mass/Vol] 3.7 g/dL Normal 3.4-5.0 [facility] Comment on above: Performed By: #### C MP #### [facility] [address] [place] [address] Dr. Domi Saleem Albumin/Globulin [Mass ratio] 0.9 {ratio} Normal [facility] Comment on above: Performed By: #### C MP #### [facility] [address] [address] [address] Domi Saleem ALP [Catalytic activity/Vol] 101 U/L Normal 46-116 [facility] Comment on above: Performed By: #### C MP #### [facility] [address] [place] [address] Dr. Domi Saleem ALT [Catalytic activity/Vol] 15 U/L Normal 14-59 [facility] Comment on above: Performed By: #### C MP #### [facility] [address] [address] [address] Domi Saleem Anion gap [Moles/Vol] 11.9 mmol/L Normal Th e [facility] Comment on above: Performed By: #### C MP #### [facility] [address] [place] [address] Dr. Domi Saleem AST [Catalytic activity/Vol] 16 U/L Normal 15-37 [facility] Comment on above: Performed By: #### C MP #### [facility] [address] [place] [address] Dr. Domi Saleem Bilirubin [Mass/Vol] 0.3 mg/dL Normal 0.2-1.0 [facility] Comment on above: Performed By: #### C MP #### [facility] [address] [place] [address] Dr. Domi Saleem Calcium [Mass/Vol] 9.0 mg/dL Normal 8.5-10.1 [facility] Comment on above: Performed By: #### C MP #### [facility] [address] [place] [address] Dr. Domi Saleem Chloride [Moles/Vol] 100 mmol/L Normal 98-107 [facility] Comment on above: Performed By: #### C MP #### [facility] [address] [place] [address] Dr. Domi Saleem CO2 [Moles/Vol] 29.0 mmol/L Normal 21.0-32.0 [facility] Comment on above: Performed By: #### C MP #### [facility] [address] [address] [address] Domi Saleem Creatinine [Mass/Vol] 0.69 mg/dL Normal 0.55-1.02 [facility] Comment on above: Performed By: #### C MP #### [facility] [address] [address] [address] Domi Saleem EGFR-AF SAO TOMEAN >60 Normal >=60 [facility] Comment on above: Performed By: #### C MP #### [facility] [address] [place] [address] Dr. Domi Saleem EGFR-NON AF SAO TOMEAN >60 Normal >=60 [facility] Comment on above: Performed By: #### C MP #### [facility] [address] [place] [address] Dr. Domi Saleem Globulin (S) [Mass/Vol] 4.2 g/dL Normal [facility] Comment on above: Performed By: #### C MP #### [facility] [address] [place] [address] Dr. Domi Saleem Glucose [Mass/Vol] 124 mg/dL Critically high 74-106 [facility] Comment on above: Performed By: #### C MP #### [facility] [address] [place] [address] Dr. Domi Saleem Potassium [Moles/Vol] 4.9 mmol/L Normal 3.5-5.1 [facility] Comment on above: Performed By: #### C MP #### [facility] [address] [place] [address] Dr. Domi Saleem Protein [Mass/Vol] 7.9 g/dL Normal 6.4-8.2 [facility] Comment on above: Performed By: #### C MP #### [facility] [address] [place] [address] Dr. Domi Saleem Sodium [Moles/Vol] 136 mmol/L Normal 136-145 [facility] Comment on above: Performed By: #### C MP #### [facility] [address] [place] [address] Dr. Domi Saleem Urea nitrogen [Mass/Vol] 9.0 mg/dL Normal 7.0-18.0 [facility] Comment on above: Performed By: #### C MP #### [facility] [address] [address] [address] Domi Saleem Urea nitrogen/Creatinine [Mass ratio] 13.0 mg/mg Normal [facility] Comment on above: Performed By: #### C MP #### [facility] [id number] Domi Saleem [facility] SED RATE 21 mm/hr Normal <=30 [facility] Comment on above: Performed By: #### S EDR #### [facility] [address] [place] [address] Dr. Domi Saleem CHEMISTRYOrdered By: SYSTEM SYSTEM on 02-11-2022 Anion gap [Moles/Vol] 14 mmol/L Normal 6 - 16 mEq/L [facility] Remisol Calcium [Mass/Vol] 9.2 mg/dL Normal 8.9 - 11. 1 mg/dL [facility] Chloride [Moles/Vol] 92 mmol/L Low 101 - 1 11 mmol/L [facility] CO2 [Moles/Vol] 28 mmol/L Normal 21 - 31 mmol/L [facility] Remisol Creatinine [Mass/Vol] 0.8 mg/dL Normal 0.5 - 1.3 mg/dL [facility] Remisol GFR/1.73 sq M.predicted among blacks MDRD (S/P/Bld) [Vol rate/Area] mL/min/1.73 m2 Normal >=59mL/min/ 1.73 m2 [facility] Chem S GFR/1.73 sq M.predicted among non-blacks MDRD (S/P/Bld) [Vol rate/Area] mL/min/1.73 m2 Normal >=59mL/min/ 1.73 m2 [facility] Chem S Glucose [Mass/Vol] 108 mg/dL Normal [...] BASO # 0.1 103/ul Normal 0.0-0.1 [facility] Comment on above: Performed By: #### C BC #### [facility] [address] [place] [address] Dr. Domi Saleem Basophils/100 WBC (Bld) 0.9 % Normal 0.2-2.0 [facility] Comment on above: Performed By: #### C BC #### [facility] [address] [place] [address] [address] [address] Domi Saleem EO # 0.2 103/ul Normal 0.0-0.7 [facility] Comment on above: Performed By: #### C BC #### [facility] [address] [place] [address] Dr. Domi Saleem Eosinophils/100 WBC (Bld) 2.4 % Normal 0.9-7.0 [facility] Comment on above: Performed By: #### C BC #### [facility] [address] [place] [address] Dr. Domi Saleem Erythrocyte distribution width (RBC) [Ratio] 12.6 % Normal 11.0-15.0 [facility] Comment on above: Performed By: #### C BC #### [facility] [address] [place] [address] Dr. Domi Saleem Hematocrit (Bld) [Volume fraction] 44.4 % Normal 36.0-48.0 [facility] Comment on above: Performed By: #### C BC #### [facility] [address] [place] [address] Dr. Domi Saleem Hemoglobin (Bld) [Mass/Vol] 15.1 g/dL Normal 12.0-16.0 [facility] Comment on above: Performed By: #### C BC #### [facility] [address] [place] [address] Dr. Domi Saleem IG # 0.04 10e3/ul Critically high 0.00-0.03 [facility] Comment on above: Performed By: #### C BC #### [facility] [address] [place] [address] Dr. Domi Saleem IG % 0.5 % Normal 0.0-0.5 [facility] Comment on above: Performed By: #### C BC #### [facility] [address] [place] [address] Dr. Domi Saleem LYMPH # 1.6 103/ul Normal 1.2-3.8 [facility] Comment on above: Performed By: #### C BC #### [facility] [address] [place] [address] Dr. Domi Saleem Lymphocytes/100 WBC (Bld) 19.1 % Critically low 20.5-60.0 [facility] Comment on above: Performed By: #### C BC #### [facility] [address] [place] [address] Dr. Domi Saleem MANUAL DIFF REQ NO Normal [facility] Comment on above: Performed By: #### C BC #### [facility] [address] [place] [address] Dr. Domi Saleem MCH (RBC) [Entitic mass] 31.5 pg Normal 26.7-34.0 [facility] Comment on above: Performed By: #### C BC #### [facility] [address] [place] [address] Dr. Domi Saleem MCHC (RBC) [Mass/Vol] 34.0 g/dL Normal 29.9-35.2 [facility] Comment on above: Performed By: #### C BC #### [facility] [address] [place] [address] Dr. Domi Saleem MCV (RBC) [Entitic vol] 92.5 fL Normal 81.0-99.0 [facility] Comment on above: Performed By: #### C BC #### [facility] [address] [place] [address] Dr. Domi Saleem MONO # 0.5 103/ul Normal 0.3-0.8 [facility] Comment on above: Performed By: #### C BC #### [facility] [address] [place] [address] Dr. Domi Saleem Monocytes/100 WBC (Bld) 6.1 % Normal 1.7-12.0 [facility] Comment on above: Performed By: #### C BC #### [facility] [address] [place] [address] Dr. Domi Saleem NEUT # 5.8 103/ul Normal 1.4-6.5 [facility] Comment on above: Performed By: #### C BC #### [facility] [address] [place] [address] Dr. Domi Saleem Neutrophils/100 WBC (Bld) 71.0 % Normal 43.0-75.0 [facility] Comment on above: Performed By: #### C BC #### [facility] [address] [address] [address] Domi Saleem Platelet mean volume (Bld) [Entitic vol] 8.7 fL Critically low 9.5-13.5 [facility] Comment on above: Performed By: #### C BC #### [facility] [address] [address] [address] Domi Saleem PLT 246 103/ul Normal 150-450 [facility] Comment on above: Performed By: #### C BC #### [facility] [address] [address] [address] Domi Saleem RBC 4.80 106/ul Normal 4.20-5.40 [facility] Comment on above: Performed By: #### C BC #### [facility] [address] [place] [address] Dr. Domi Saleem WBC 8.2 103/ul Normal 4.0-11.0 [facility] Comment on above: Performed By: #### C BC #### [facility] [address] [place] [address] Dr. Domi Saleem GLYCOHEMOGLOBIN A1Con 2021 ADA RECOMMENDATION SEE BELOW Normal [facility] Comment on above: Result Comment: ADA RECOMMENDED LIMIT 4.0 - 6.0 ADA THERAPEUTIC TARGET < 7.0 ACTION SUGGESTED > 7.0 Performed By: #### A 1C #### [facility] [address] [place] [address] Dr. Domi Saleem Glucose [Mass/Vol] 117 mg/dL Normal [facility] Comment on above: Performed By: #### A 1C #### [facility] [address] [place] [address] Dr. Domi Saleem HbA1c (Bld) [Mass fraction] 5.7 % Normal 4.5-6.2 [facility] Comment on above: Performed By: #### A 1C #### [facility] [address] [place] [address] Dr. Domi Saleem PROF 14(COMP METB)on 022 Albumin [Mass/Vol] 4.0 g/dL Normal 3.4-5.0 [facility] Comment on above: Performed By: #### C MP #### [facility] [address] [place] [address] Dr. Domi Saleem Albumin/Globulin [Mass ratio] 1.1 {ratio} Normal [facility] Comment on above: Performed By: #### C MP #### [facility] [address] [place] [address] Dr. Domi Saleem ALP [Catalytic activity/Vol] 91 U/L Normal 46-116 [facility] Comment on above: Performed By: #### C MP #### [facility] [address] [place] [address] Dr. Domi Saleem ALT [Catalytic activity/Vol] 16 U/L Normal 14-59 [facility] Comment on above: Performed By: #### C MP #### [facility] [address] [place] [address] Dr. Domi Saleem Anion gap [Moles/Vol] 10.3 mmol/L Normal [facility] Comment on above: Performed By: #### C MP #### [facility] [address] [place] [address] Dr. Domi Saleem AST [Catalytic activity/Vol] 24 U/L Normal 15-37 [facility] Comment on above: Performed By: #### C MP #### [facility] [address] [place] [address] Dr. Domi Saleem Bilirubin [Mass/Vol] 0.5 mg/dL Normal 0.2-1.0 [facility] Comment on above: Performed By: #### C MP #### [facility] [address] [place] [address] Dr. Domi Saleem Calcium [Mass/Vol] 9.1 mg/dL Normal 8.5-10.1 [facility] Comment on above: Performed By: #### C MP #### [facility] [address] [place] [address] Dr. Domi Saleem Chloride [Moles/Vol] 95 mmol/L Critically low 98-107 [facility] Comment on above: Performed By: #### C MP #### [facility] [address] [address] [address] Domi Saleem CO2 [Moles/Vol] 27.4 mmol/L Normal 21.0-32.0 [facility] Comment on above: Performed By: #### C MP #### [facility] [address] [address] [address] Domi Saleem Creatinine [Mass/Vol] 0.77 mg/dL Normal 0.55-1.02 [facility] Comment on above: Performed By: #### C MP #### [facility] [address] [address] [address] Domi Saleem EGFR-AF SAO TOMEAN >60 Normal >=60 [facility] Comment on above: Performed By: #### C MP #### [facility] [address] [place] [address] Dr. Domi Saleem EGFR-NON AF SAO TOMEAN >60 Normal >=60 [facility] Comment on above: Performed By: #### C MP #### [facility] [address] [address] [address] Domi Saleem Globulin (S) [Mass/Vol] 3.8 g/dL Normal [facility] Comment on above: Performed By: #### C MP #### [facility] [address] [address] [address] Domi Saleem Glucose [Mass/Vol] 141 mg/dL Critically high 74-106 [facility] Comment on above: Performed By: #### C MP #### [facility] [address] [address] [address] Domi Saleem Potassium [Moles/Vol] 4.7 mmol/L Normal 3.5-5.1 [facility] Comment on above: Performed By: #### C MP #### [facility] [address] [place] [address] Dr. Domi Saleem Protein [Mass/Vol] 7.8 g/dL Normal 6.4-8.2 [facility] Comment on above: Performed By: #### C MP #### [facility] [address] [place] [address] Dr. Domi Saleem Sodium [Moles/Vol] 128 mmol/L Critically low 136-145 [facility] Comment on above: Performed By: #### C MP #### [facility] [address] [place] [address] Dr. Domi Saleem Urea nitrogen [Mass/Vol] 14.0 mg/dL Normal 7.0-18.0 [facility] Comment on above: Performed By: #### C MP #### [facility] [address] [place] [address] Dr. Domi Saleem Urea nitrogen/Creatinine [Mass ratio] 18.2 mg/mg Normal [facility] Comment on above: Performed By: #### C MP #### [facility] [address] [place] [address] Dr. Domi Sale[facility] 34 mm/hr Critically high <=30 [facility] Comment on above: Performed By: #### S EDR #### [facility] [address] [place] [address] Dr. Domi Saleem CBC AUTO DIFFon 07-18-2021 BASO # 0.1 103/ul Normal 0.0-0.1 [facility] Comment on above: Performed By: #### C BC #### [facility] [address] [place] [address] Dr. Domi Saleem Basophils/100 WBC (Bld) 1.2 % Normal 0.2-2.0 [facility] Comment on above: Performed By: #### C BC #### [facility] [address] [place] [address] Dr. Domi Saleem EO # 0.2 103/ul Normal 0.0-0.7 [facility] Comment on above: Performed By: #### C BC #### [facility] [address] [place] [address] Dr. Domi Saleem Eosinophils/100 WBC (Bld) 4.0 % Normal 0.9-7.0 [facility] Comment on above: Performed By: #### C BC #### [facility] [address] [place] [address] Dr. Domi Saleem Erythrocyte distribution width (RBC) [Ratio] 12.8 % Normal 11.0-15.0 [facility] Comment on above: Performed By: #### C BC #### [facility] [address] [place] [address] Dr. Domi Saleem Hematocrit (Bld) [Volume fraction] 45.2 % Normal 36.0-48.0 [facility] Comment on above: Performed By: #### C BC #### [facility] [address] [place] [address] Dr. Domi Saleem Hemoglobin (Bld) [Mass/Vol] 15.0 g/dL Normal 12.0-16.0 [facility] Comment on above: Performed By: #### C BC #### [facility] [address] [place] [address] Dr. Domi Saleem IG # 0.02 10e3/ul Normal 0.00-0.03 [facility] Comment on above: Performed By: #### C BC #### [facility] [address] [place] [address] Dr. Domi Saleem IG % 0.4 % Normal 0.0-0.5 [facility] Comment on above: Performed By: #### C BC #### [facility] [address] [place] [address] Dr. Domi Saleem LYMPH # 1.1 103/ul Critically low 1.2-3.8 [facility] Comment on above: Performed By: #### C BC #### [facility] [address] [place] [address] Dr. Domi Saleem Lymphocytes/100 WBC (Bld) 22.8 % Normal 20.5-60.0 [facility] Comment on above: Performed By: #### C BC #### [facility] [address] [place] [address] Dr. Domi Saleem MANUAL DIFF REQ NO Normal [facility] Comment on above: Performed By: #### C BC #### [facility] [address] [place] [address] Dr. Domi Saleem MCH (RBC) [Entitic mass] 31.4 pg Normal 26.7-34.0 [facility] Comment on above: Performed By: #### C BC #### [facility] [address] [place] [address] Dr. Domi Saleem MCHC (RBC) [Mass/Vol] 33.2 g/dL Normal 29.9-35.2 [facility] Comment on above: Performed By: #### C BC #### [facility] [address] [place] [address] Dr. Domi Saleem MCV (RBC) [Entitic vol] 94.8 fL Normal 81.0-99.0 [facility] Comment on above: Performed By: #### C BC #### [facility] [address] [place] [address] Dr. Domi Saleem MONO # 0.3 103/ul Normal 0.3-0.8 [facility] Comment on above: Performed By: #### C BC #### [facility] [address] [place] [address] Dr. Dmoi Saleem Monocytes/100 WBC (Bld) 6.8 % Normal 1.7-12.0 [facility] Comment on above: Performed By: #### C BC #### [facility] [address] [place] [address] Dr. Domi Saleem NEUT # 3.2 103/ul Normal 1.4-6.5 [facility] Comment on above: Performed By: #### C BC #### [facility] [address] [place] [address] Dr. Domi Saleem Neutrophils/100 WBC (Bld) 64.8 % Normal 43.0-75.0 [facility] Comment on above: Performed By: #### C BC #### [facility] [address] [place] [address] Dr. Domi Saleem Platelet mean volume (Bld) [Entitic vol] 8.9 fL Critically low 9.5-13.5 [facility] Comment on above: Performed By: #### C BC #### [facility] [address] [place] [address] Dr. Domi Saleem PLT 222 103/ul Normal 150-450 [facility] Comment on above: Performed By: #### C BC #### [facility] [address] [place] [address] Dr. Domi Saleem RBC 4.77 106/ul Normal 4.20-5.40 [facility] Comment on above: Performed By: #### C BC #### [facility] [address] [place] [address] Dr. Domi Saleem WBC 5.0 103/ul Normal 4.0-11.0 [facility] Comment on above: Performed By: #### C BC #### [facility] [address] [place] [address] Dr. Domi Saleem PROF 14(COMP METB)on 022 Albumin [Mass/Vol] 3.6 g/dL Normal 3.4-5.0 [facility] Comment on above: Performed By: #### C MP #### [facility] [address] [place] [address] Dr. Domi Saleem Albumin/Globulin [Mass ratio] 1.0 {ratio} Normal [facility] Comment on above: Performed By: #### C MP #### [facility] [address] [place] [address] Dr. Domi Saleem ALP [Catalytic activity/Vol] 79 U/L Normal 46-116 [facility] Comment on above: Performed By: #### C MP #### [facility] [address] [place] [address] Dr. Domi Saleem ALT [Catalytic activity/Vol] 19 U/L Normal 14-59 [facility] Comment on above: Performed By: #### C MP #### [facility] [address] [place] [address] Dr. Domi Saleem Anion gap [Moles/Vol] 10.0 mmol/L Normal [facility] Comment on above: Performed By: #### C MP #### [facility] [address] [place] [address] Dr. Domi Saleem AST [Catalytic activity/Vol] 13 U/L Critically low 15-37 [facility] Comment on above: Performed By: #### C MP #### [facility] [address] [place] [address] Dr. Domi Saleem Bilirubin [Mass/Vol] 0.3 mg/dL Normal 0.2-1.0 [facility] Comment on above: Performed By: #### C MP #### [facility] [address] [place] [address] Dr. Domi Saleem Calcium [Mass/Vol] 8.4 mg/dL Critically low 8.5-10.1 [facility] Comment on above: Performed By: #### C MP #### [facility] [address] [place] [address] Dr. Domi Saleem Chloride [Moles/Vol] 101 mmol/L Normal 98-107 [facility] Comment on above: Performed By: #### C MP #### [facility] [address] [place] [address] Dr. Domi Saleem CO2 [Moles/Vol] 31.3 mmol/L Normal 21.0-32.0 [facility] Comment on above: Performed By: #### C MP #### [facility] [address] [place] [address] Dr. Domi Saleem Creatinine [Mass/Vol] 0.75 mg/dL Normal 0.55-1.02 [facility] Comment on above: Performed By: #### C MP #### [facility] [address] [place] [address] Dr. Domi Saleem EGFR-AF SAO TOMEAN >60 Normal >=60 [facility] Comment on above: Performed By: #### C MP #### [facility] [address] [place] [address] Dr. Domi Saleem EGFR-NON AF SAO TOMEAN >60 Normal >=60 [facility] Comment on above: Performed By: #### C MP #### [facility] [address] [place] [address] Dr. Domi Saleem Globulin (S) [Mass/Vol] 3.6 g/dL Normal [facility] Comment on above: Performed By: #### C MP #### [facility] [address] [address] [address] Domi Saleem Glucose [Mass/Vol] 120 mg/dL Critically high 74-106 [facility] Comment on above: Performed By: #### C MP #### [facility] [address] [address] [address] Domi Saleem Potassium [Moles/Vol] 5.3 mmol/L Critically high 3.5-5.1 [facility] Comment on above: Performed By: #### C MP #### [facility] [address] [address] [address] Domi Saleem Protein [Mass/Vol] 7.2 g/dL Normal 6.1-8.2 [facility] Comment on above: Performed By: #### C MP #### [facility] [address] [place] [address] Dr. Domi Saleem Sodium [Moles/Vol] 137 mmol/L Normal 136-145 [facility] Comment on above: Performed By: #### C MP #### [facility] [address] [address] [address] Domi Saleem Urea nitrogen [Mass/Vol] 20.0 mg/dL Critically high 7.0-18.0 [facility] Comment on above: Performed By: #### C MP #### [facility] [address] [place] [address] Dr. Domi Saleem Urea nitrogen/Creatinine [Mass ratio] 26.7 mg/mg Normal [facility] Comment on above: Performed By: #### C MP #### [facility] [address] [place] [address] Dr. Domi Saleem SED RATE [facility] 2021 SED RATE 13 mm/hr Normal <=30 [facility] Comment on above: Performed By: #### S EDR #### [facility] [address] [place] [address] Dr. Domi Saleem CNOVSPon 08-20-2018 CNOVSP Visit (SP) Office (H EMACL) -- RUMA CARLTON ([id number]) 1960 F Date Time Provider Department 08/20/18 [...] Gilman MD Referring Provider: CARMELITA SINGH JR [[id number]] Allergies As of Date: 08/20/2018 Noted Allergy [...] (FOR REMOTE [facility] USE) [SQRAGCBC] Order #: [id number] FUTURE COMP METABOLIC PANEL [SQCMP] Order #: [id number] FUTURE PROTEIN ELECTROPHORESIS W/INTERP [SQSEPG] Order #: [id number] FUTURE IMMUNOFIXATION SCREEN, SERUM [SQIFESC] Order #: [id number] FUTURE KAPPA/GERMAIN,FREE,SER [SQKLFRS] Order #: [id number] FUTURE LUPUS ANTICOAG PL [SQLUPUSP] Order #: [id number] FUTURE Disposition: Return in about 1 year [...] Status:Closed by LEDY GILMAN MD on 08/20/18 [facility] PROGRESSon 08-20-2018 Protein mass conc HNO ID: [id number] Author: Ledy Gilman Service: ? Author Type: [...] ABS GRAN CT + CBC (FOR REMOTE [facility] USE) - COMP METABOLIC PANEL - PROTEIN ELECTROPHORESIS W/INTERP - IMMUNOFIXATION SCREEN, SERUM - KAPPA/GERMIAN,FREE,SER - LUPUS ANTICOAG PL 2. 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 Will check labs and see me in follow up - ABS GRAN CT + CBC (FOR REMOTE [facility] USE) - COMP METABOLIC PANEL - PROTEIN ELECTROPHORESIS W/INTERP - IMMUNOFIXATION SCREEN, SERUM - KAPPA/GERMAIN,FREE,SER - LUPUS ANTICOAG PL Ledy Gilman MD Normal [facility] Vital Signs Date Time Vital Sign Value Performing Clinician Facility 05-28-2024 11:36-0500 Body height 157.48 cm [facility] 05-28-2024 11:36-0500 Body mass index (BMI) [Ratio] 46.7 kg/m2 [facility] 05-28-2024 11:36-0500 Body weight 115.83 kg [facility] 05-28-2024 11:36-0500 Diastolic blood pressure 77 mm[Hg] [facility] 05-28-2024 11:36-0500 Heart rate 77 /min [facility] 05-28-2024 11:36-0500 Respiratory rate 14 /min [facility] 05-28-2024 11:36-0500 SaO2% (BldA) [Mass fraction] 99 % [facility] 05-28-2024 11:36-0500 Systolic blood pressure 121 mm[Hg] [facility] 01-22-2024 10:09-0400 Body height 157.48 cm MD Anibal Chaudhary Work Phone: [facility] 01-22-2024 10:09-0400 Body mass index (BMI) [Ratio] 47.9 kg/m2 MD Anibal Chaudhary Work Phone: [facility] 01-22-2024 10:09-0400 Body weight 118.95 kg MD Anibal Chaudhary Work Phone: [facility] 01-22-2024 10:09-0400 Diastolic blood pressure 84 mm[Hg] MD Anibal Chaudhary Work Phone: [facility] 01-22-2024 10:09-0400 Heart rate 113 /min MD Anibal Chaudhary Work Phone: [facility] 01-22-2024 10:09-0400 SaO2% (BldA) [Mass fraction] 99 % MD Anibal Chaudhary Work Phone: [facility] 01-22-2024 10:09-0400 Systolic blood pressure 124 mm[Hg] MD Anibal Chaudhary Work Phone: [facility] 10-27-2023 13:42-0400 Body height 157.48 cm [facility] 10-27-2023 13:42-0400 Body mass index (BMI) [Ratio] 49.1 kg/m2 [facility] 10-27-2023 13:42-0400 Body weight 122.01 kg [facility] 10-27-2023 13:42-0400 Diastolic blood pressure 81 mm[Hg] [facility] 10-27-2023 13:42-0400 Heart rate 91 /min [facility] 10-27-2023 13:42-0400 Systolic blood pressure 144 mm[Hg] [facility] 08-19-2023 10:39-0400 Body height 157.48 cm MD Anibal Chaudhary Work Phone: [facility] 08-19-2023 10:39-0400 Body mass index (BMI) [Ratio] 48.4 kg/m2 MD Anibal Chaudhary Work Phone: [facility] 08-19-2023 10:39-0400 Body weight 120.2 kg MD Anibal Chaudhary Work Phone: [facility] 08-19-2023 10:39-0400 Diastolic blood pressure 80 mm[Hg] MD Anibal Chaudhary Work Phone: [facility] 08-19-2023 10:39-0400 Heart rate 73 /min MD Anibal Chaudhary Work Phone: [facility] 08-19-2023 10:39-0400 SaO2% (BldA) [Mass fraction] 98 % MD Anibal Chaudhary Work Phone: [facility] 08-19-2023 10:39-0400 Systolic blood pressure 150 mm[Hg] MD Anibal Chaudhary Work Phone: [facility] 05-08-2023 14:56-0500 Body height 157.48 cm MD Anibal Chaudhary Work Phone: [facility] 05-08-2023 14:56-0500 Body mass index (BMI) [Ratio] 42.6 kg/m2 MD Anibal Chaudhary Work Phone: [facility] 05-08-2023 14:56-0500 Body weight 105.74 kg MD Anibal Chaudhary Work Phone: [facility] 05-08-2023 14:56-0500 Diastolic blood pressure 85 mm[Hg] MD Anibal Chaudhary Work Phone: [facility] 05-08-2023 14:56-0500 Heart rate 85 /min MD Anibal Chaudhary Work Phone: [facility] 05-08-2023 14:56-0500 Systolic blood pressure 151 mm[Hg] MD Anibal Chaudhary Work Phone: [facility] 12-27-2022 14:45-0400 Body height 157.48 cm Anibal Chaudhary Other [employer] Other 12-27-2022 14:45-0400 Body mass index (BMI) [Ratio] 38.59 kg/m2 Anibal Chaudhary Other [facility] [employer] Other 12-27-2022 14:45-0400 Body weight 95.71 kg Anibal Chaudhary Other [facility] [employer] Other 12-27-2022 14:45-0400 Diastolic blood pressure 81 mm[Hg] Anibal Chaudhary Other [facility] [employer] Other 12-27-2022 14:45-0400 SaO2% (BldA) [Mass fraction] 99 % Anibal Chaudhary Other [facility] [employer] Other 12-27-2022 14:45-0400 Systolic blood pressure 116 mm[Hg] Anibal Chaudhary Other [facility] [employer] Other 12-24-2022 08:00-0400 Body temperature 98.2 [degF] MD Anibal Chaudhary Work Phone: [facility] 12-24-2022 08:00-0400 Diastolic blood pressure 78 mm[Hg] MD Anibal Chaudhary Work Phone: [facility] 12-24-2022 08:00-0400 Heart rate 93 /min MD Anibal Chaudhary Work Phone: [facility] 12-24-2022 08:00-0400 Respiratory rate 18 /min MD Anibal Chaudhary Work Phone: [facility] 12-24-2022 08:00-0400 SaO2% (BldA) [Mass fraction] 99 % MD Anibal Chaudhary Work Phone: [facility] 12-24-2022 08:00-0400 Systolic blood pressure 126 mm[Hg] MD Anibal Chaudhary Work Phone: [facility] 12-24-2022 02:42-0400 Body height 157.48 cm MD Anibal Chaudhary Work Phone: [facility] 12-24-2022 02:42-0400 Body weight 94.4 kg MD Anibal Chaudhary Work Phone: [facility] 11-15-2022 13:00-0400 Body height 157.48 cm Anibal Chaudhary Other [facility] [employer] Other 11-15-2022 13:00-0400 Body mass index (BMI) [Ratio] 39.69 kg/m2 Anibal Chaudhary Other [employer] Other 11-15-2022 13:00-0400 Body weight 98.43 kg Anibal Chaudhary Other [employer] Other 11-15-2022 13:00-0400 Diastolic blood pressure 78 mm[Hg] Anibal Chaudhary Other [employer] Other 11-15-2022 13:00-0400 Systolic blood pressure 140 mm[Hg] Anibal Chaudhary Other [employer] Other 09-12-2022 11:30-0400 Body height 157.48 cm Anibal Chaudhary Other [employer] Other 09-12-2022 11:30-0400 Body mass index (BMI) [Ratio] 39.14 kg/m2 Anibal Chaudhary Other [employer] Other 09-12-2022 11:30-0400 Body weight 97.07 kg Anibal Chaudhary Other [employer] Other 09-12-2022 11:30-0400 Diastolic blood pressure 85 mm[Hg] Anibal Chaudhary Other [employer] Other 09-12-2022 11:30-0400 Systolic blood pressure 157 mm[Hg] Anibal Chaudhary Other [employer] Other 04-29-2022 09:45-0500 Body height 157.48 cm Anibal Chaudhary Other [employer] Other 04-29-2022 09:45-0500 Body mass index (BMI) [Ratio] 47.55 kg/m2 Anibal Chaudhary Other [employer] Other 04-29-2022 09:45-0500 Body weight 117.94 kg Anibal Chaudhary Other [employer] Other 04-29-2022 09:45-0500 Diastolic blood pressure 88 mm[Hg] Anibal Chaudhary Other [employer] Other 04-29-2022 09:45-0500 SaO2% (BldA) [Mass fraction] 97 % Anibal Chaudhary Other [employer] Other 04-29-2022 09:45-0500 Systolic blood pressure 132 mm[Hg] Anibal Chaudhary Other [employer] Other 07-07-2020 07:58-0400 Body height 160.02 cm Anibal Chaudhary Work Phone: [facility] 07-07-2020 07:58-0400 Body weight 97.06 kg Anibal Chaudhary Work Phone: [facility] Encounters Encounter Date Encounter Type Care Provider Facility Start: 06-29-2024 End: 06-29-2024 [facility] Start: 05-28-2024 End: 05-28-2024 ambulatory [facility] Work Phone: Start: 05-28-2024 End: 05-28-2024 Patient encounter procedure [facility] Work Phone: Start: 05-26-2024 End: 05-26-2024 ambulatory [facility] Start: 05-20-2024 Non-patient / Non-visit [facility] Work Phone: Start: 05-20-2024 End: 05-20-2024 ambulatory [facility] Start: 05-17-2024 Non-patient / Non-visit [facility] Work Phone: Start: 05-12-2024 Evaluation and management of inpatient YASH [facility] Start: 05-12-2024 Non-patient / Non-visit [facility] Work Phone: Start: 05-11-2024 End: 05-14-2024 Evaluation and management of inpatient RADHAAva [facility] Start: 05-11-2024 End: 05-11-2024 Non-patient / Non-visit [facility] Work Phone: Start: 05-11-2024 Non-patient / Non-visit [facility] Physician [facility] Work Phone: Start: 05-10-2024 Non-patient / Non-visit [facility] Physician [facility] Work Phone: Start: 02-05-2024 End: 02-05-2024 [facility] Start: 01-22-2024 End: 01-22-2024 ambulatory MD Anibal Chaudhary Work Phone: [facility] Work Phone: Start: 01-22-2024 End: 01-22-2024 Patient encounter procedure MD Anibal Chaudhary Work Phone: [facility] Physician [facility] Work Phone: Start: 01-21-2024 Non-patient / Non-visit MD Marlen Chaudhary Work Phone: [facility] Physician [facility] Work Phone: Start: 01-08-2024 End: 01-08-2024 ambulatory AGUEDA ZUÑIGA [facility] Start: 01-08-2024 Non-patient / Non-visit MD Marlen Chaudhary Work Phone: [facility] Physician [facility] Work Phone: Start: 12-30-2023 Evaluation and management of inpatient [facility] Start: 12-29-2023 Evaluation and management of inpatient [facility] Start: 12-29-2023 Evaluation and management of inpatient [facility] Start: 12-28-2023 Evaluation and management of inpatient [facility] Start: 12-28-2023 Evaluation and management of inpatient [facility] Start: 12-27-2023 Evaluation and management of inpatient AGUEDA RIVERAOTF [facility] Start: 12-26-2023 Evaluation and management of inpatient AGUEDA ZUÑIGA [facility] Start: 12-26-2023 Evaluation and management of inpatient AGUEDA ZUÑIGA [facility] Start: 12-25-2023 Evaluation and management of inpatient ALAN PATEL [facility] Start: 12-25-2023 Evaluation and management of inpatient AGUEDA Miramontes INGLESIDECHRISTINAOTF [facility] Start: 12-24-2023 Evaluation and management of inpatient RIAN BUTTS [facility] Start: 12-23-2023 Evaluation and management of inpatient [facility] Start: 12-22-2023 Evaluation and management of inpatient [facility] Start: 12-21-2023 Evaluation and management of inpatient DION [facility] Start: 12-19-2023 Evaluation and management of inpatient AGUEDA Kulwinder [facility] Start: 12-18-2023 Evaluation and management of inpatient AGUEDA RIVERAOTF [facility] Start: 12-18-2023 Evaluation and management of inpatient AGUEDA RIVERAOTF [facility] Start: 12-17-2023 Evaluation and management of inpatient ALAN [facility] Start: 12-16-2023 Evaluation and management of inpatient [facility] Start: 12-16-2023 Evaluation and management of inpatient [facility] Start: 12-15-2023 Evaluation and management of inpatient [facility] Start: 12-15-2023 Evaluation and management of inpatient [facility] Start: 12-15-2023 Evaluation and management of inpatient [facility] Start: 12-11-2023 Evaluation and management of inpatient [facility] Start: 12-11-2023 Evaluation and management of inpatient [facility] Start: 12-10-2023 Evaluation and management of inpatient JOSÉ MIGUEL MURRIETA [facility] Start: 12-08-2023 Evaluation and management [facility] Start: 12-08-2023 End: 12-08-2023 Evaluation and management of inpatient MANSI BUTTS [facility] Start: 12-08-2023 Evaluation and management of inpatient UMAIR PEREYRA [facility] Start: 12-06-2023 [facility] Start: 12-06-2023 Evaluation and management of inpatient [facility]UEDA [facility]es [facility] Start: 12-05-2023 [facility]ISE[facility]OTH[facility] Start: 12-05-2023 End: 12-30-2023 Evaluation and management of inpatient ALAN PATEL [facility] Start: 12-04-2023 End: 12-04-2023 Patient encounter procedure MD Anibal Chaudhary Work Phone: [facility] [place] Work Phone: Start: 12-04-2023 End: 12-04-2023 ambulatory MD Anibal Chaudhary Work Phone: [facility] Work Phone: Start: 12-03-2023 End: 12-03-2023 ambulatory AGLE AGNES [facility] Start: 12-02-2023 End: 12-02-2023 Departed Referred MD Anibal Chaudhary Work Phone: [facility] [place] Work Phone: Start: 12-02-2023 End: 12-02-2023 Patient encounter procedure MD Anibal Chaudhary Work Phone: [facility] [place] Work Phone: Start: 12-02-2023 End: 12-02-2023 ambulatory MD Anibal Chaudhary Work Phone: [facility] Work Phone: Start: 11-03-2023 End: 11-03-2023 Patient encounter procedure MD Anibal Chaudhary Work Phone: [facility] [place] Work Phone: Start: 11-03-2023 End: 11-03-2023 ambulatory MD Anibal Chaudhary Work Phone: [facility] Work Phone: Start: 10-27-2023 End: 10-27-2023 ambulatory [facility] Work Phone: Start: 10-27-2023 End: 10-27-2023 Patient encounter procedure [facility] Physician [facility] Work Phone: Start: 09-07-2023 Non-patient / Non-visit [facility] Work Phone: Start: 08-19-2023 End: 08-19-2023 ambulatory MD Anibal Chaudhary Work Phone: [facility] Work Phone: Start: 08-19-2023 End: 08-19-2023 Patient encounter procedure MD Anibal Chaudhary Work Phone: [facility] Work Phone: Start: 07-10-2023 Non-patient / Non-visit MD Marlen Chaudhary Work Phone: [facility] Work Phone: Start: 07-08-2023 End: 07-08-2023 Patient encounter procedure MD Anibal Chaudhary Work Phone: [facility] Start: 07-08-2023 End: 07-08-2023 ambulatory MD Anibal Chaudhary Work Phone: [facility] Work Phone: Start: 06-04-2023 End: 06-04-2023 ambulatory JOSH POCOS Not Available Start: 05-29-2023 End: 08-27-2023 ambulatory Josh Pocos [facility] Start: 05-29-2023 End: 08-27-2023 Recurring Josh Pocos [facility] Start: 05-29-2023 End: 05-29-2023 ambulatory ANIBAL CHAUDHARY Facility:[facility] Start: 05-29-2023 End: 05-29-2023 Patient encounter procedure Josh Pocos [facility] Start: 05-16-2023 End: 05-16-2023 ambulatory JOSH POCOS Not Available Start: 05-08-2023 End: 05-08-2023 ambulatory MD Anibal Chaudhary Work Phone: [facility] Work Phone: Start: 05-08-2023 End: 05-08-2023 Patient encounter procedure MD Anibal Chaudhary Work Phone: [facility] Work Phone: Start: 02-25-2023 End: 02-25-2023 Departed Referred MD Anibal Chaudhary Work Phone: [facility] Work Phone: Start: 02-25-2023 End: 02-25-2023 ambulatory MD Anibal Chaudhary Work Phone: [facility] Work Phone: Start: 02-11-2023 End: 02-11-2023 ambulatory Anibal Chaudhary Other [employer] Other Start: 02-11-2023 Telephone encounter Anibal Chaudhary [facility] Start: 12-27-2022 End: 12-27-2022 ambulatory Anibal Chaudhary Other [employer] Other Start: 12-27-2022 Office outpatient vi sit 25 minutes Anibal Chaudhary [facility] Start: 12-25-2022 End: 12-25-2022 ambulatory Anibal Chaudhary Other [employer] Other Start: 12-25-2022 Telephone encounter Anibal Chaudhary [facility] Start: 12-24-2022 End: 12-24-2022 Evaluation and management of inpatient MD Anibal Chaudhary Work Phone: [facility] Work Phone: Start: 12-24-2022 End: 12-24-2022 observation encounter MD Anibal Chaudhary Work Phone: [facility] Work Phone: Start: 12-24-2022 End: 12-24-2022 ambulatory Petr Kowalski Facility:[facility] Start: 12-20-2022 End: 12-20-2022 ambulatory Anibal Chaudhary Other [employer] Other Start: 12-20-2022 Telephone encounter Anibal Chaparro [facility] Start: 11-15-2022 End: 11-15-2022 ambulatory Anibal Chaudhary Other [employer] Other Start: 11-15-2022 Office outpatient vi sit 15 minutes Anibal Chaudhary [facility] Start: 09-12-2022 End: 09-12-2022 ambulatory Anibal Chaudhary Other [employer] Other Start: 09-12-2022 Office outpatient vi sit 25 minutes Anibal Chaudhary [facility] Start: 09-12-2022 Telephone encounter Anibal Chaparro [facility] Start: 07-04-2022 End: 07-04-2022 ambulatory Anibal Chaparro Other [employer] Other Start: 07-04-2022 Telephone encounter Anibal Chaparro [facility] Start: 06-18-2022 End: 06-18-2022 ambulatory Virgilio Mckeon Other [employer] Other Start: 06-18-2022 Telephone encounter Virgilio Mckeon [facility] Start: 05-30-2022 End: 05-30-2022 ambulatory Anibal Chaudhary Other [employer] Other Start: 05-30-2022 Telephone encounter Anibal Chaparro [facility] Start: 05-27-2022 End: 05-28-[address] DOCTOR VERAS Facility: Start: 04-29-2022 End: 04-29-2022 ambulatory Anibal Chaudhary Other [employer] Other Start: 04-29-2022 Office outpatient vi sit 15 minutes Anibal Chaudhary [facility] Start: 04-29-2022 Telephone encounter Anibal Chaudhary [facility] Start: 02-11-2022 ambulatory Facility:[id number] Start: 02-11-2022 End: 02-11-2022 Patient encounter procedure Yany Jc Shivanibernardo [facility] Start: 01-07-2022 End: 01-26-2022 Pre-admission assessment Yany Amezcua [facility] Start: 11-20-2021 Adult health examination Anibal Chaudhary Other [employer] Other Start: 11-20-2021 Encounter for genera l adult medical examination without abnormal findings DR DOCTOR VERAS [facility] Start: 11-19-2021 End: 11-20-2021 ambulatory ANIBAL CHAUDHARY Facility:[facility] Start: 11-19-2021 End: 11-20-2021 Encounter for general adult medical examination without abnormal findings DR DOCTOR VERAS Facility:[facility] Start: 07-18-2021 End: 07-19-[address] DOCTOR VERAS Facility:[facility] Start: 07-07-2020 End: 07-07-2020 Patient encounter procedure Anibal Chaudhary Work Phone: [facility] [place] Procedures Date Procedure Procedure Detail Performing Clinician Start: 05-26-2024 Follow-up visit DARY MEREDITH AD Start: 05-20-2024 Follow-up visit DARY MEREDITH AD Start: 02-05-2024 Follow-up visit DARY SA AD Start: 01-08-2024 Follow-up visit DARY SA AD Start: 12-03-2023 Follow-up visit DARY MEREDITH AD Start: 07-07-2020 MRI of head Anibal Agus cuba Work Phone: Plan of Treatment Date Care Activity Detail Author Start: 12-03-2023 [facility] Start: 11-03-2023 [facility] Start: 07-08-2023 [facility] Start: 12-24-2022 [facility] Start: 12-24-2022 Hospital admission [facility] Start: 12-24-2022 [facility] Start: 12-24-2022 Sleep disorder assessment [facility] 25-hydroxyvitamin D2 [Mass/volume] in Serum or Plasma [facility] 25-hydroxyvitamin D3 [Mass/volume] in Serum or Plasma [facility] 25-Hydroxyvitamin D3+25-Hydroxyvitamin D2 [Mass/volume] in Serum or Plasma [facility] Comprehensive metabo lic 2000 panel - Serum or Plasma [facility] Glucose measurement estimated from glycated hemoglobin [facility] Patient referral [facility] Work Phone: Thyrotropin [Units/v olume] in Serum or Plasma [facility] Thyroxine (T4) free index in Serum or Plasma by calculation [facility] Thyroxine measurement [facility] Triiodothyronine (T3 ) [Mass/volume] in Serum or Plasma [facility] Triiodothyronine res in uptake (T3RU) in Serum or Plasma [facility] Payers Date Payer Category Payer Medicaid [id number] 2022 Self-pay [id number] 1960 Unknown [id number] 2.16. [id number] 1960 Unknown [id number] 2.16.84 0.1.431391.3.579.2.593 1960 Unknown [id number] 2.16.84 0.1.792750.3.579.2.593 1960 Unknown [id number] 2.16.84 0.1.361601.3.579.2.593 1960 Unknown [id number] 2.16.84 0.1.290394.3.579.2.593 1960 Unknown [id number] 2.16.84 0.1.832248.3.579.2.1259 1960 Unknown [id number] 2.16.84 0.1.792379.3.579.2.1259 1960 Unknown [id number] 2.16.84 0.1.654073.3.579.2.1259 1960 Unknown [id number] 2.16.84 0.1.646225.3.579.2.1259 1961 Unknown [id number] 2.16.8 40.1.466809.3.579.2.727 1960 Unknown [id number] 2.16.8 40.1.318065.3.579.2.727 1959 Unknown [id number] Private Health Insurance [id number] Unknown [id number] Unknown [id number] 2.16.8 40.1.504286.3.579.2.531 Unknown [id number] 2.16.8 40.1.131948.3.579.2.531 Unknown [id number] 2.16.8 40.1.956984.3.579.2.531 Unknown [id number] 2.16.8 40.1.799744.3.579.2.531 Unknown [id number] 2.16.8 40.1.982831.3.579.2.531 Unknown [id number] 2.16.8 40.1.177920.3.579.2.531 Unknown [id number] 2.16.8 40.1.987774.3.579.2.531 Social History Date Type Detail Facility Tobacco smoking stat [facility] Unknown if ever smoked [facility] Start: 1960 Sex Assigned At Female F [facility] Tobacco smoking status No Smokin g Status Entered [facility] Sex Assigned At Female [facility] Start: 12-24-2022 End: 12-24-2022 Tobacco smoking status NHIS Current some day smoker [facility] Start: 12-27-2022 End: 12-27-2022 Tobacco smoking status NHIS Smoker (finding) [facility] Start: 05-28-2024 Sex Female (finding) [facility] Goals Date Patient Goal Desired Activity /State Functional Status Date Assessment Result Facility 12-24-2022 Functional status Patient at Baseline [facility] Work Phone: Mental Status Date Assessment Result Facility 12-24-2022 Cognitive function Cognitive Sta tus Patient at Baseline [facility] Work Phone: Clinical Notes 04-29-2022 to 05-26-2024 Note Date & Type Note Facility 05-26-2024 Note [facility] 05-26-2024 Note [facility] 05-20-2024 Note [facility] 05-20-2024 Note [facility] 05-14-2024 Note Attempted to delete note. Left incomplete. [facility] 05-13-2024 Note [facility] 05-13-2024 Note [facility] 05-12-2024 Note [facility] 05-12-2024 Note [facility] 05-12-2024 Note Case was discussed w ith the ADEBAYO on 05/11/2024. I agree with the history, physical, assessment, and plan of care. I discussed the findings and therapeutic plan. I agree with the documentation, except for any updates below. Rao Foster MD [facility] 05-12-2024 Note [facility] 05-12-2024 Note Per primary team to consider addition of CPAP/BiPAP nightly [facility] 05-12-2024 Note Continue with home m edication, levothyroxine 50 mcg tablet p.o. daily [facility] 05-12-2024 Note Continue diuresis as above Supplemental O2 at 2-4 L/min via nasal cannula as needed [facility] 05-12-2024 Note Insulin lispro per s liding scale before meals and at bedtime. Continue home medication Januvia 100 mg p.o. daily [facility] 02-05-2024 Note [facility] 01-08-2024 Note [facility] 12-30-2023 Note [facility] 12-30-2023 Note [facility] 12-30-2023 Note Occupational Therapy Name: Ruma Carlton Date of : 1960 Today's Date: 12/30/23 Pt is unable to be seen for therapy at this time secondary to Discharging @ 1530. Check No Charge Time attempted: 1325 [facility] 12-30-2023 Note [facility] 12-30-2023 Note [facility] 12-29-2023 Note [facility] 12-29-2023 Note [facility] 12-29-2023 Note [facility] 12-29-2023 Note [facility] 12-29-2023 Note [facility] 12-29-2023 Note Addendum created 10/14 0920 by Mario Bermudez MD Attestation recorded in Intraprocedure (Anesthesia), Intraprocedure Attestations filed (Anesthesia), Intraprocedure Event edited, Intraprocedure Staff edited, Intraprocedure Staff edited (Anesthesia) [facility] 12-29-2023 Note [facility] 12-28-2023 Note [facility] 12-28-2023 Note CTS: Patient seen and examined post left pigtail catheter removal I concur with the xray report and do not see any pneumothorax. Lungs CTA bilaterally Dressing dry and intact Satting 98% on room air Updated daughter at bedside. [facility] 12-28-2023 Note Sent updates to [facility]. They have pre-cert which is good through Lisa 10/8. Awaiting medical readiness. [facility] 12-28-2023 Note [facility] 12-28-2023 Note [facility] 12-27-2023 Note [facility] 12-27-2023 Note [facility] 12-27-2023 Note [facility] 12-27-2023 Note [facility] 12-26-2023 Note [facility] 12-26-2023 Note [facility] 12-26-2023 Note Updates sent to [facility]. Patient still has chest tube in place. Awaiting Pulmonary to see patient today. SW continues to follow. [facility] 12-26-2023 Note [facility] 12-26-2023 Note [facility] 12-26-2023 Note [facility] 12-25-2023 Note [facility] 12-25-2023 Note [facility] 12-25-2023 Note [facility] 12-25-2023 Note [facility] 12-25-2023 Note [facility] 12-25-2023 Note [facility] 12-25-2023 Note [facility] 12-24-2023 Note [facility] 12-24-2023 Note [facility] 12-24-2023 Note Awaiting precert for [facility]. Per CT Surgery patient should be medically ready for discharge on 12/24. SW following. [facility] 12-24-2023 Note A. Satisfactory for evaluation. Examination of the ThinPrep slide and cell block reveals reactive mesothelial cells in a background of marked acute inflammation. [facility] Comment on above: Performed By: #### L AB13 ####[facility] (BEAKER)[address] [place] [address] 12-24-2023 Note [facility] 12-24-2023 Note [facility] 12-24-2023 Note [facility] 12-24-2023 Note [facility] 12-23-2023 Note [facility] 12-23-2023 Note [facility] 12-23-2023 Note [facility] 12-23-2023 Note [facility] 12-22-2023 Note [facility] 12-22-2023 Note [facility] 12-22-2023 Note [facility] 12-22-2023 Note [facility] 12-22-2023 Note [facility] 12-22-2023 Note [facility] 12-21-2023 Note [facility] 12-20-2023 Note [facility] 12-20-2023 Note [facility] 12-20-2023 Note [facility] 12-19-2023 Note [facility] 12-19-2023 Note [facility] 12-19-2023 Note [facility] 12-19-2023 Note [facility] 12-19-2023 Note [facility] 12-18-2023 Note [facility] 12-18-2023 Note [facility] [facility] 12-18-2023 Note [facility] 12-18-2023 Note Occupational Therapy Name: Ruma Carlton Date of : 1960 Today's Date: 12/18/23 Pt is unable to be seen for therapy at this time secondary to Pt currently off floor for testing Check No Charge Time attempted: 1407 [facility] 12-18-2023 Note [facility] 12-18-2023 Note Echo attempted bedsi de @10:45 am. Patient in chair, called RN but busy, unable to get patient back in bed for test. Will try again later. [facility] 12-18-2023 Note [facility] 12-18-2023 Note [facility] 12-17-2023 Note [facility] [place] 12-17-2023 Note [facility] 12-17-2023 Note [facility] [place] 12-17-2023 Note [facility] [place] 12-16-2023 Note [facility] [place] 12-16-2023 Note [facility] [place] 12-16-2023 Note [facility] [place] 12-15-2023 Note [facility] [place] 12-15-2023 Note [facility] 12-15-2023 Note [facility] [place] 12[facility]15-2023 Note [facility] [place] 12-15-2023 Note [facility] 12-14-2023 Note [facility] 12-13-2023 Note [facility] 12-13-2023 Note [facility] [place] 12-12-2023 Note [facility] 12-12-2023 Note [facility] [place] 12-12-2023 Note [facility] 12-12-2023 Note [facility] 12-11-2023 Note [facility] [place] 12-11-2023 Note [facility] 12[facility]11-2023 Note [facility] 12-10-2023 Note [facility] [place] 12-10-2023 Note [facility] [place] 12-10-2023 Note [facility] [place] 12-10-2023 Note [facility] [place] 12-09-2023 Note [facility] [place] 12-09-2023 Note [facility] [place] 12-09-2023 Note [facility] [place] 12-09-2023 Note [facility] 12-08-2023 Note [facility] [place] 12-08-2023 Note [facility] [place] 12-08-2023 Note [facility] [place] 12-08-2023 Note [facility] [place] 12-08-2023 Note [facility] 12-08-2023 Note [facility] 12-07-2023 Note [facility] 12-07-2023 Note [facility] 12-07-2023 Note [facility] 12-06-2023 Note [facility] 12-06-2023 Note Case was discussed w ith the ADEBAYO on 12/05/2023. I agree with the history, physical, assessment, and plan of care. I discussed the findings and therapeutic plan. I agree with the documentation, except for any updates below. Gregory Wright MD [facility] 12-04-2023 Note Chest tightness and LOPEZ will plan for cardiac cath in light of severe coronary calcifications noted, DM, HTN, HPL, abnormal ECG [facility] 12-04-2023 Note Diabetes is managed by PCP [facility] 12-04-2023 Note [facility] 12-04-2023 Note Managed per PCP Recommended weight loss [facility] 12-03-2023 Note [facility] 12-03-2023 Note [facility] 02-11-2023 Evaluation note Encounter Date Diagnosis Assessment Notes Jan, Acute pain of right hip (ICD-10 - M25.551) [facility] Other 10-06-2023 Evaluation note* Encounter Date Diagnosis [...] monitor results and followup in 3-4 weeks. [facility] Other 10-04-2023 Evaluation note* Encounter Date Diagnosis Assessment Notes Treatment Notes Treatment Clinical Notes Dec, Depressive disorder (ICD-10 - F32.A) [facility] [employer] [facility] Other 10-03-2023 History and physical note Author Froilan Brown [facility] December 24, 2022 4:06am Note Date/Time December 24, 2022 3: 58am [facility] [address] [place] [address] Hospitalist H&P Signed Patient: Ruma Carlton MR#: [id number] : 1960 Acct:[id number] Age/Sex: 62 / F Adm Date: 3 Loc: Room: [address] [place] [address] Type: ADM IN Attending Dr: Froilan Brown MD Copies to: MD Anibal Mosquera MD~ HPI DATE OF EXAMINATION: 12/24/22 CHIEF COMPLAINT: fall HISTORY OF PRESENT ILLNESS: The patient is a 62 year old woman with a history of HTN, DVT/PE on xarelto, POTS, NIDDM2, paroxysmal SVT who presented to [facility] ED after a fall. Per the patient [...] got up from sleeping to walk to [facility] and fell- pt reports she felt wobbly after taking the flexeril. shedid not lose consciousness or feel dizzy and denies any chest pain or shortness of breath. Pt's right hip pain worsened over the course of Friday so she went to [facility] ER for evaluation on arrival there vital [...] feels improved after she got tylenol at [facility]- the patient is somewhat irritated at being [...] were negative except as noted in the [facility] Medical History Apnea Arthritis Back pain [...] thrombosis): (5) Hyponatremia: Plan: mild (126 at [facility])- ?medication related Plan - admit to medicine - monitor on telemetry - restart home medications - will check STAT troponin now. if it is markedly increased compared to at [facility], would ask cardiology to see pt. if [...] <Electronically signed by Froilan Brown MD> 12/24/22405 [facility] Work Phone: [phone] 179-998609-29-2023 Evaluation note* Encounter Date Diagnosis Assessment Notes Treatment Notes Treatment Clinical Notes Nov, Depressive disorder (ICD-10 - F32.A) [facility] Other 08-25-2023 Evaluation note* Encounter Date Diagnosis Assessment Notes Treatment Notes Treatment Clinical Notes Oct, Depressive disorder (ICD-10 - F32.A) Mood improved. 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 She hasn't rec'd the midodrine yet, but will start it and followup w [facility] cardio [facility] Other 06-22-2023 Evaluation note* Encounter Date Diagnosis [...] the past (years ago). Requests a refill. [facility] Other 02-06-2023 Evaluation note* Encounter Date Diagnosis [...] ENT eval if area does not resolve. [facility] Other 02-06-2023 Evaluation note* Encounter Date Diagnosis Assessment Notes Treatment Notes Treatment Clinical Notes Apr, Lumbar pain (ICD-10 - M54.50) [facility] Other Evaluation + Plan note No data available for this section [facility] Future Appointments Appointment Date:06/04/2023 01:30:00 PM Scheduled Provider: Location:[facility] Appointment Type:DM Diabetes Initial news director 61 (F [facility] Assessments Information Available [facility]No [facility] Other Evaluation note* Diagnosis Onset Date Resolution Status Elevated troponin acute Fall acute Hyponatremia acute Personal history of DVT (deep vein thrombosis) acute Right hip pain acute [facility] Work Phone: Evaluation noteNo assessment information available [facility] Work Phone: Evaluation note* Diagnosis Onset Date Resolution Status Anxiety acute Bilateral primary osteoarthritis of knee acute Depression acute Right hip pain acute [facility] Work Phone: Evaluation note* Diagnosis Onset Date Resolution Status Abnormal TSH acute Arthritis, rheumatoid acute Lower extremity edema acute Urinary frequency acute [facility] Work Phone: Evaluation note* Diagnosis Onset Date Resolution Status Abnormal TSH acute Arthritis, rheumatoid acute Lower extremity edema acute Urinary frequency acute Abnormal TSH acute Diabetes mellitus, type 2 [place] [facility] Hypertension acute [facility] Work Phone: Evaluation note* Diagnosis Onset Date Resolution Status Abnormal TSH acute Arthritis, rheumatoid acute Lower extremity edema acute Urinary frequency acute Abnormal TSH acute Arthritis, rheumatoid acute Diabetes mellitus, type 2 ac [facility] Hypertension acute [facility] Work Phone: Evaluation note* Diagnosis Onset Date Resolution Status Abnormal TSH acute Arthritis, rheumatoid acute Diabetes mellitus, type 2 ac [facility] Hypertension acute [facility] Work Phone: History general Narrative - Reported* [...] rele ase 02/2022 Hospitalization History see above [facility] Other History general Narrative - Reported* Type [...] rele ase 02/2022 Hospitalization History see above [facility] Other Hospital Discharge instructions No data available for this section [facility] No data available for this section [facility] Author Petr Kowalski [facility] December 24, 2022 11:58am Note Date/Time December 24, 2022 11 :58am [facility] [address] [place] [address] Hospitalist Progress Note Signed Patient: Ruma Carlton MR#: [id number] : 1960 Acct:[id number] Age/Sex: 62 / F Adm Date: 3 Loc: Room: [address] [place] [address] Type: ADM INOo Attending Dr: Petr Kowalski MD Copies to: ~ Date of Service: 12/24/2022 Subjective Subjective Narrative: The patient is a 62 year old woman with a history of HTN, DVT/PE on xarelto, POTS, NIDDM2, paroxysmal SVT who presented to [facility] ED after a fall. Per the patient [...] got up from sleeping to walk to [facility] and fell- pt reports she felt wobbly after taking the flexeril. shedid not lose consciousness or feel dizzy and denies any chest pain or shortness of breath. Pt's right hip pain worsened over the course of Friday so she went to [facility] ER for evaluation On arrival there vital [...] feels improved after she got Tylenol at [facility]- the patient is somewhat irritated at being [...] to the fall. Her CT head at [facility] was unremarkable for ICH patient remained stable [...] 08:59 50 mg DAILY SANAZ Administration Pyridostigmine [place] 120 mg 12/24/22 09:00 12/24/22 08:36 Pyridostigmine [place] 60 Mg Tablet PO 12/24/23 08:59 120 [...] thrombosis): (5) Hyponatremia: Plan: mild (126 at [facility])- ?medication related Plan -Repeat Troponin here WNL. Sodium level WNL -CT head done at [facility] with no evidence of intracranial bleed. Patient remained stable with no focal deficits -X-ray of the hip done at [facility] with no evidence of fracture dislocation -Patient [...] <Electronically signed by Petr Kowalski MD> 12/24/22 1150 [facility] Work Phone: Summary Purpose Family History No [...] R06.9 Amb Documentation CC Adult Risk Stratification [facility]:CABG-HIGH RISK Reason for Visit Abnormal TSH Arthritis, rheumatoid Diabetes mellitus, type 2 Hypertension Chief Complaint Admit Date Amb Documentation May 17, 2024 1:57pm [facility]; heart failure-HIGH RISK May 28, 2024 11:25am Additional Source Comments INFORMATION SOURCE (unrecogn ized section and content) DATE CREATED AUTHOR 08/29/2018 [facility] DATE CREATED AUTHOR AUTHOR'S ORGANIZ ATION 03/20/2022 [facility] [place] DATE CREATED AUTHOR AUTHOR'S ORGANIZ ATION 05/29/2022 [facility] DATE CREATED AUTHOR AUTHOR'S ORGANIZ ATION 06/05/2023 [facility] EPIC DATE CREATED AUTHOR AUTHOR'S ORGANIZ ATION 08/29/2023 [facility] DATE CREATED AUTHOR AUTHOR'S ORGANIZ ATION 12/16/2023 [facility] DATE CREATED AUTHOR AUTHOR'S ORGANIZ ATION 07/08/2024 [facility] Patient Care team informatio n (unrecognized [...] BE BASED ON THE PRIMARY CLINICAL RECORDS. [employer] provides no warranty or guarantee of the accuracy or completeness of information in this document.
== END 2024-07-02 23:59 | disposition home or self-care (01) ==
LOC: CARD 07-08 11:11
PROVIDERS: PCP Family Medicine; Visit Provider Nurse Practitioner Family
DX: R06.09 Other forms of dyspnea (principal)
CPT/HCPCS: 93017; J2785

== ENCOUNTER 2024-07-19 15:42 | Outpatient (OUT) | payer OTHER, SELFPAY ==
[2024-07-19 15:54] LABS: Basophils Absolute Auto 0.1 10^3/uL (0.0-0.1); Basophils Percent Auto 1.4 % (0.2-2.0); Eosinophils Absolute Auto 0.7 10^3/uL (0.0-0.7); Eosinophils Percent Auto 9.3 % (0.9-7.0); Hematocrit 42.9 % (36.0-48.0); Immature Granulocytes Abs Auto 0.03 10^3/uL (0.00-0.03); Immature Granulocytes Pct Auto 0.4 % (0.0-0.5); Lymphocytes Absolute Auto 1.4 10^3/uL (1.2-3.8); Lymphocytes Percent Auto 18.7 % (20.5-60.0); Mean Corpuscular HGB Conc 32.6 g/dL (29.9-35.2); Mean Corpuscular Hemoglobin 29.8 pg (26.7-34.0); Mean Corpuscular Volume 91.3 fL (81.0-99.0); Mean Platelet Volume 9.5 fL (9.5-13.5); Monocytes Absolute Auto 0.3 10^3/uL (0.3-0.8); Monocytes Percent Auto 3.7 % (1.7-12.0); Neutrophils Absolute Auto 4.9 10^3/uL (1.4-6.5); Neutrophils Percent Auto 66.5 % (43.0-75.0); Platelet Count 260 10^3/uL (150-450); Red Cell Distribution Width 13.1 % (11.0-15.0); White Blood Count 7.3 10^3/uL (4.0-11.0)
[2024-07-19 16:14] LABS: Calcium 8.7 mg/dL (8.5-10.1); Carbon Dioxide 28.8 mmol/L (21.0-32.0); Chloride 101 mmol/L (98-107); Estimated GFR (African America 43 (>=60 mL/min/1.73m^2); Estimated GFR (Non-African Ame 35 (>=60 mL/min/1.73m^2); Glucose 222 mg/dL (74-106); Potassium 3.8 mmol/L (3.5-5.1); Sodium 141 mmol/L (136-145)
== END 2024-07-19 15:43 | disposition home or self-care (01) ==
LOC: LAB 15:42
PROVIDERS: PCP Family Medicine; Visit Provider Nurse Practitioner Family
DX: R94.39 Abnormal result of other cardiovascular function study (principal); I25.10 Atherosclerotic heart disease of native coronary artery without angina pectoris
CPT/HCPCS: 36415; 80048; 85025

== ENCOUNTER 2024-07-22 19:56 | Emergency (ER) | payer MEDICAID, SELFPAY ==
[2024-07-22] VITALS (15 sets, daily range): BP systolic 117–137; BP diastolic 78–88; PULSE 77–96; TEMP 36.7; O2SAT 86–100; BMI 46.9
--- NOTE | 2024-07-22 20:11 | ECG_ITS ---
The [facility] Test Date: 2024-07-22 Pat Name: NICOLAS HARRIS Department: Room: - Gender: Female Screening Representative: : 1960 Requested By: [id number] Order Number: [id number] Reading MD: RICK LAMA M.D. Measurements Intervals [place] Rate: 78 P: 90 GA: 146 QRS: 90 QRSD: 94 T: 35 QT: 402 QTc: 435 Interpretive Statements 1100 Sinus rhythm 1474 with frequent supraventricular premature complexes 2440 Incomplete right bundle branch block 5120 Possible right ventricular hypertrophy 9140 abnormal rhythm ECG Compared to ECG 05/11/2024 17:06:29 No significant changes Electronically Signed On 07-22-2024 23:29:48 EDT by RICK LAMA M.D.
--- NOTE | 2024-07-22 20:12 | ED.CHESTPAI1 ---
Documented by User: Lis Rogers 07/22/24 21:07 HPI - Chest Pain General Chief Complaint: Chest Pain Stated Complaint: numbness, CP, SOB, STENT YESTERDAY Time Seen by Provider: 07/22/24 20:06 Source: patient Mode of arrival: Wheelchair Limitations: no limitations History of Present Illness HPI narrative: 63 year old female presents to the ED for SOB, chest discomfort, tingling to her extremities. Onset was this morning. States she had made her morning coffee when she spilled the grounds. States she bent down to clean it up and became short of breath. States she was unable to slow her breathing down and her legs started to tingle. She then developed chest discomfort. Her symptoms have been intermittent. She has been tearful with the episodes as well. She did have a cardiac stent placed yesterday. States she has been under increased stress. Pt is accompanied by family. Pt appears anxious. Denies fever, chills, dizziness, vision changes. When discussing events the patient becomes tearful and her respiratory rate increases. She then stated she was having tingling to her legs again. She is taking aspirin, plavix, and xarelto. 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 Johnson with [facility]; she has a follow up appointment 08/04/24. Related Data Home Medications ?Medication ?Instructions ?Recorded ?Confirmed pyridostigmine bromide 60 mg tablet 120 mg PO QID 12/24/22 07/22/24 rivaroxaban 20 mg tablet (Xarelto) 20 mg PO .qhs 12/24/22 07/22/24 sitagliptin phosphate 100 mg 100 mg PO DAILY 12/24/22 05/10/24 tablet (Januvia) venlafaxine 150 mg 300 mg PO DAILY 12/24/22 07/22/24 capsule,extended release 24 hr levothyroxine 50 mcg tablet 50 mcg PO DAILY 09/07/23 07/22/24 furosemide 40 mg tablet 40 mg PO DAILY 05/10/24 07/22/24 magnesium oxide 400 mg (241.3 mg 400 mg PO BID 05/10/24 07/22/24 magnesium) tablet spironolactone 25 mg tablet 25 mg PO DAILY 05/10/24 07/22/24 aspirin 81 mg tablet,delayed 81 mg PO DAILY 05/11/24 07/22/24 release lamotrigine 200 mg tablet 200 mg PO HS 05/11/24 07/22/24 amiodarone 200 mg tablet 200 mg PO Q24H 07/22/24 07/22/24 clopidogrel 75 mg tablet 75 mg PO DAILY 07/22/24 07/22/24 dapagliflozin propanediol 10 mg 10 mg PO DAILY 07/22/24 07/22/24 tablet (Farxiga) fluticasone furoate 50 1 inh inhalation Q24H 07/22/24 07/22/24 mcg-vilanterol 25 mcg/dose inhalation powder (Breo Ellipta) metoprolol succinate 25 mg 25 mg PO DAILY 07/22/24 07/22/24 tablet,extended release 24 hr mirtazapine 15 mg tablet 15 mg PO BEDTIME 07/22/24 07/22/24 ondansetron HCl 4 mg tablet 8 mg PO Q8H PRN nausea and vomiting 07/22/24 07/22/24 rosuvastatin 20 mg tablet 20 mg PO DAILY 07/22/24 07/22/24 sacubitril 24 mg-valsartan 26 mg 0.5 tab PO DAILY 07/22/24 07/22/24 tablet (Entresto) Previous Rx's ?Medication ?Instructions ?Recorded lorazepam 0.5 mg tablet (Ativan) 0.5 mg PO Q12H PRN anxiety #7 tabs 07/22/24 Allergies Allergy/AdvReac Type Severity Reaction Status Date / Time Sulfa (Sulfonamide Allergy Intermediate Unknown Verified 07/22/24 20:06 Antibiotics) Review of Systems ROS Constitutional Denies: fever, chills or fatigue Ears, nose, mouth, and throat Denies: throat pain or neck pain Cardiovascular Reports: chest pain; Denies: swelling of feet/ankles or lightheadedness Respiratory Reports: shortness of breath; Denies: cough Gastrointestinal Denies: abdominal pain, nausea, vomiting or diarrhea Musculoskeletal Denies: back pain or neck pain Neurological Reports: numbness in extremities; Denies: headache, weakness in extremities or dizziness [facility] Medical History (Updated 07/22/24 @ 21:07 by Lis Rogers) Type 2 diabetes mellitus ?E11.9 - Type 2 diabetes mellitus without complications (ICD-10) Paroxysmal A-fib ?I48.0 - Paroxysmal atrial fibrillation (ICD-10) Former smoker ?Z87.891 - Personal history of nicotine dependence (ICD-10) CAD (coronary artery disease) ?I25.10 - Atherosclerotic heart disease of [place] coronary artery without angina pectoris (ICD-10) HLD (hyperlipidemia) ?E78.5 - Hyperlipidemia, unspecified (ICD-10) Hypothyroid ?E03.9 - Hypothyroidism, unspecified (ICD-10) High cholesterol ?E78.00 - Pure hypercholesterolemia, unspecified (ICD-10) Surgical History (Updated 05/10/24 @ 17:46 by Rosey Lai) S/P triple vessel bypass ?Z95.1 - Presence of aortocoronary bypass graft (ICD-10) Social History Highest level of school completed/degree received: Associate degree: occupational, technical, vocational program Little interest or pleasure in doing things: not at all Feeling down, depressed, or hopeless: not at all Exam Constitutional Vital Signs, click to edit/add: Last Vital Signs Temp 98.1 F 07/22/24 19:59 Pulse 78 07/22/24 22:12 Resp 20 07/22/24 22:12 BP 117/88 07/22/24 22:12 Pulse Ox 98 07/22/24 22:12 O2 Del Method Room Air 07/22/24 22:12 O2 Flow Rate 1 07/22/24 20:35 Common normals: no apparent distress and oriented x3 General appearance: cooperative and anxious; not in distress HENMT Common normals: moist oral mucous membranes Mouth: oral and palatal mucosa normal and lip normal Eye Common normals: conjunctivae normal and no scleral icterus Neck & C-Spine Common normals: supple Chest Chest: symmetrical chest wall rise Respiratory Common normals: normal respiratory effort and clear to auscultation bilaterally Effort & inspection: able to speak in complete sentences and symmetric chest movement Cardio Common normals: regular rate and regular rhythm Neuro Common normals: oriented x3, moves all extremities and no focal motor deficits Sensorium/orientation: alert Speech: speech normal Psych Mood and affect: anxious and tearful Course Vital Signs Vital signs: Vital Signs Temperature 98.1 F 07/22/24 19:59 Pulse Rate 78 07/22/24 19:59 Respiratory Rate 26 H 07/22/24 19:59 Blood Pressure 137/88 07/22/24 19:59 Pulse Oximetry 100 07/22/24 19:59 Oxygen Delivery Method Room Air 07/22/24 19:59 Temperature 98.1 F 07/22/24 19:59 Pulse Rate 78 07/22/24 22:12 Respiratory Rate 20 07/22/24 22:12 Blood Pressure 117/88 07/22/24 22:12 Pulse Oximetry 98 07/22/24 22:12 Oxygen Delivery Method Room Air 07/22/24 22:12 Oxygen Delivery Flow Rate 1 07/22/24 20:35 MDM - Chest Pain MDM Narrative Medical decision making narrative: The patient had a cardiac stent placed yesterday at [facility]. The patient did appear anxious; she was given Ativan. Chest x-ray was pending. Initial troponin was 135.6; repeat was pending. Care was resumed to Dr. Wilder. See her dictation for further evaluation and treatment. Medical Records Data Attestation: I reviewed the patient's medical records. Lab Data Attestation: I reviewed the patient's lab results. Labs: Lab Results 07/22/24 07/22/24 Range/Units 20:05 21:00 WBC 7.1 (4.0-11.0) 10^3/uL RBC 5.12 (4.20-5.40) 10^6/uL Hgb 15.4 (12.0-16.0) g/dL Hct 45.8 (36.0-48.0) % MCV 89.5 (81.0-99.0) fL MCH 30.1 (26.7-34.0) pg MCHC 33.6 (29.9-35.2) g/dL RDW 13.2 (11.0-15.0) % Plt Count 292 (150-450) 10^3/uL MPV 9.9 (9.5-13.5) fL Neut % (Auto) 71.6 (43.0-75.0) % Lymph % (Auto) 19.0 L (20.5-60.0) % [place] % (Auto) 3.5 (1.7-12.0) % Eos % (Auto) 4.1 (0.9-7.0) % Baso % (Auto) 1.4 (0.2-2.0) % Neut # (Auto) 5.1 (1.4-6.5) 10^3/uL Lymph # (Auto) 1.4 (1.2-3.8) 10^3/uL [place] # (Auto) 0.3 (0.3-0.8) 10^3/uL Eos # (Auto) 0.3 (0.0-0.7) 10^3/uL Baso # (Auto) 0.1 (0.0-0.1) 10^3/uL Abs Immat Gran (auto) 0.03 (0.00-0.03) 10^3/uL Imm/Tot Granulo (auto) 0.4 (0.0-0.5) % Sodium 141 (136-145) mmol/L Potassium 3.8 (3.5-5.1) mmol/L Chloride 99 (98-107) mmol/L Carbon Dioxide 28.5 (21.0-32.0) mmol/L Anion Gap 17.3 BUN 9.0 (7.0-18.0) mg/dL Creatinine 1.39 H (0.55-1.02) mg/dL Est GFR ( Amer) 47 L (>=60 mL/min/1.73m^2) Est GFR (Non-Af Amer) 38 L (>=60 mL/min/1.73m^2) BUN/Creatinine Ratio 6.5 Glucose 214 H (74-106) mg/dL Calcium 9.4 (8.5-10.1) mg/dL Troponin I High Sens 135.6 H* 121.6 H* (4.0-51.3) pg/mL ECG Data Attestation: ?I have reviewed the pertinent ECG results. (EKG was reviewed by the attending physician. It showed sinus rhythm at a rate of 78. No STEMI.) Interpretation: Measurements Intervals [place] Rate: 78 P: 90 MT: 146 QRS: 90 QRSD: 94 T: 35 QT: 402 QTc: 435 Interpretive Statements 1100 Sinus rhythm 1474 with frequent supraventricular premature complexes 2440 Incomplete right bundle branch block 5120 Possible right ventricular hypertrophy 9140 abnormal rhythm ECG No previous ECG available for comparison Discharge Plan Discharge Chief Complaint: Chest Pain Clinical Impression: Dyspnea, Chest pain Patient Disposition: Home, Self-Care Condition: Good Mode of Transportation: Private Vehicle Prescriptions / Home Meds: New lorazepam [Ativan] 0.5 mg tablet 0.5 mg PO Q12H MDD 2 doses PRN (Reason: anxiety) Qty: 7 0RF No Action pyridostigmine bromide 60 mg tablet 120 mg PO QID Xarelto 20 mg tablet 20 mg PO .qhs Januvia 100 mg tablet 100 mg PO DAILY venlafaxine 150 mg capsule,extended release 24hr 300 mg PO DAILY levothyroxine 50 mcg tablet 50 mcg PO DAILY furosemide 40 mg tablet 40 mg PO DAILY magnesium oxide 400 mg (241.3 mg magnesium) tablet 400 mg PO BID spironolactone 25 mg tablet 25 mg PO DAILY lamotrigine 200 mg tablet 200 mg PO HS aspirin 81 mg tablet,delayed release (DR/EC) 81 mg PO DAILY amiodarone 200 mg tablet 200 mg PO Q24H Breo Ellipta 50-25 mcg/dose blister with device 1 inh inhalation Q24H clopidogrel 75 mg tablet 75 mg PO DAILY dapagliflozin propanediol [Farxiga] 10 mg tablet 10 mg PO DAILY metoprolol succinate 25 mg tablet extended release 24 hr 25 mg PO DAILY mirtazapine 15 mg tablet 15 mg PO BEDTIME ondansetron HCl 4 mg tablet 8 mg PO Q8H PRN (Reason: nausea and vomiting) rosuvastatin 20 mg tablet 20 mg PO DAILY Entresto 24-26 mg tablet 0.5 tab PO DAILY Print Language: Vietnamese Instructions: Chest Pain (ED) Referrals: Merissa Mayfield MD [Primary Care Provider, Family Practice] - 1 week Discharge Date/Time: 07/22/24 22:14 Documented by User: Sharlene Silva DO 07/23/24 20:12 HPI - Chest Pain General Chief Complaint: Chest Pain Stated Complaint: numbness, CP, SOB, STENT YESTERDAY Time Seen by Provider: 07/22/24 20:06 History of Present Illness HPI narrative: 63 year old female presents to the ED for SOB, chest discomfort, tingling to her extremities. Onset was this morning. States she had made her morning coffee when she spilled the grounds. States she bent down to clean it up and became short of breath. States she was unable to slow her breathing down and her legs started to tingle. She then developed chest discomfort. Her symptoms have been intermittent. She has been tearful with the episodes as well. She did have a cardiac stent placed yesterday. States she has been under increased stress. Pt is accompanied by family. Pt appears anxious. Denies fever, chills, dizziness, vision changes. When discussing events the patient becomes tearful and her respiratory rate increases. She then stated she was having tingling to her legs again. She is taking aspirin, plavix, and xarelto. 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 Johnson with [facility]; she has a follow up appointment 08/04/24. Meño Contribution: The patient states that her troponin is always elevated. She states that she is compliant with all of her medications. She states that she really got upset when she dropped the coffee grounds this morning. She states that she has never been that wound up before. This is not the same pain that she has had when it was chest pain related from an arterial occlusion. Treatment prior to arrival: Reports other (Ativan PO) Related Data Home Medications ?Medication ?Instructions ?Recorded ?Confirmed pyridostigmine bromide 60 mg tablet 120 mg PO QID 12/24/22 07/22/24 rivaroxaban 20 mg tablet (Xarelto) 20 mg PO .qhs 12/24/22 07/22/24 sitagliptin phosphate 100 mg 100 mg PO DAILY 12/24/22 05/10/24 tablet (Januvia) venlafaxine 150 mg 300 mg PO DAILY 12/24/22 07/22/24 capsule,extended release 24 hr levothyroxine 50 mcg tablet 50 mcg PO DAILY 09/07/23 07/22/24 furosemide 40 mg tablet 40 mg PO DAILY 05/10/24 07/22/24 magnesium oxide 400 mg (241.3 mg 400 mg PO BID 05/10/24 07/22/24 magnesium) tablet spironolactone 25 mg tablet 25 mg PO DAILY 05/10/24 07/22/24 aspirin 81 mg tablet,delayed 81 mg PO DAILY 05/11/24 07/22/24 release lamotrigine 200 mg tablet 200 mg PO HS 05/11/24 07/22/24 amiodarone 200 mg tablet 200 mg PO Q24H 07/22/24 07/22/24 clopidogrel 75 mg tablet 75 mg PO DAILY 07/22/24 07/22/24 dapagliflozin propanediol 10 mg 10 mg PO DAILY 07/22/24 07/22/24 tablet (Farxiga) fluticasone furoate 50 1 inh inhalation Q24H 07/22/24 07/22/24 mcg-vilanterol 25 mcg/dose inhalation powder (Breo Ellipta) metoprolol succinate 25 mg 25 mg PO DAILY 07/22/24 07/22/24 tablet,extended release 24 hr mirtazapine 15 mg tablet 15 mg PO BEDTIME 07/22/24 07/22/24 ondansetron HCl 4 mg tablet 8 mg PO Q8H PRN nausea and vomiting 07/22/24 07/22/24 rosuvastatin 20 mg tablet 20 mg PO DAILY 07/22/24 07/22/24 sacubitril 24 mg-valsartan 26 mg 0.5 tab PO DAILY 07/22/24 07/22/24 tablet (Entresto) Previous Rx's ?Medication ?Instructions ?Recorded lorazepam 0.5 mg tablet (Ativan) 0.5 mg PO Q12H PRN anxiety #7 tabs 07/22/24 Allergies Allergy/AdvReac Type Severity Reaction Status Date / Time Sulfa (Sulfonamide Allergy Intermediate Unknown Verified 07/22/24 20:06 Antibiotics) Review of Systems ROS Narrative 10 Systems were reviewed, and unless noted in the HPI, all other systems are reviewed, unremarkable, or noncontributory. [facility] Medical History (Updated 07/22/24 @ 21:07 by Lis Rogers) Type 2 diabetes mellitus ?E11.9 - Type 2 diabetes mellitus without complications (ICD-10) Paroxysmal A-fib ?I48.0 - Paroxysmal atrial fibrillation (ICD-10) Former smoker ?Z87.891 - Personal history of nicotine dependence (ICD-10) CAD (coronary artery disease) ?I25.10 - Atherosclerotic heart disease of [place] coronary artery without angina pectoris (ICD-10) HLD (hyperlipidemia) ?E78.5 - Hyperlipidemia, unspecified (ICD-10) Hypothyroid ?E03.9 - Hypothyroidism, unspecified (ICD-10) High cholesterol ?E78.00 - Pure hypercholesterolemia, unspecified (ICD-10) Surgical History (Updated 05/10/24 @ 17:46 by Rosey Lai) S/P triple vessel bypass ?Z95.1 - Presence of aortocoronary bypass graft (ICD-10) Social History Highest level of school completed/degree received: Associate degree: occupational, technical, vocational program Little interest or pleasure in doing things: not at all Feeling down, depressed, or hopeless: not at all Exam Constitutional Vital Signs, click to edit/add: Last Vital Signs Temp 98.1 F 07/22/24 19:59 Pulse 78 07/22/24 22:12 Resp 20 07/22/24 22:12 BP 117/88 07/22/24 22:12 Pulse Ox 98 07/22/24 22:12 O2 Del Method Room Air 07/22/24 22:12 O2 Flow Rate 1 07/22/24 20:35 Course Vital Signs Vital signs: Vital Signs Temperature 98.1 F 07/22/24 19:59 Pulse Rate 78 07/22/24 19:59 Respiratory Rate 26 H 07/22/24 19:59 Blood Pressure 137/88 07/22/24 19:59 Pulse Oximetry 100 07/22/24 19:59 Oxygen Delivery Method Room Air 07/22/24 19:59 Temperature 98.1 F 07/22/24 19:59 Pulse Rate 78 07/22/24 22:12 Respiratory Rate 20 07/22/24 22:12 Blood Pressure 117/88 07/22/24 22:12 Pulse Oximetry 98 07/22/24 22:12 Oxygen Delivery Method Room Air 07/22/24 22:12 Oxygen Delivery Flow Rate 1 07/22/24 20:35 MDM - Chest Pain Lab Data Lab results narrative: Meño: Troponin decreasing. This is likely secondary to the cardiac cath. He chest pain is very atypical and she appears to be severely anxious. Labs: Lab Results 07/22/24 07/22/24 Range/Units 20:05 21:00 WBC 7.1 (4.0-11.0) 10^3/uL RBC 5.12 (4.20-5.40) 10^6/uL Hgb 15.4 (12.0-16.0) g/dL Hct 45.8 (36.0-48.0) % MCV 89.5 (81.0-99.0) fL MCH 30.1 (26.7-34.0) pg MCHC 33.6 (29.9-35.2) g/dL RDW 13.2 (11.0-15.0) % Plt Count 292 (150-450) 10^3/uL MPV 9.9 (9.5-13.5) fL Neut % (Auto) 71.6 (43.0-75.0) % Lymph % (Auto) 19.0 L (20.5-60.0) % [place] % (Auto) 3.5 (1.7-12.0) % Eos % (Auto) 4.1 (0.9-7.0) % Baso % (Auto) 1.4 (0.2-2.0) % Neut # (Auto) 5.1 (1.4-6.5) 10^3/uL Lymph # (Auto) 1.4 (1.2-3.8) 10^3/uL [place] # (Auto) 0.3 (0.3-0.8) 10^3/uL Eos # (Auto) 0.3 (0.0-0.7) 10^3/uL Baso # (Auto) 0.1 (0.0-0.1) 10^3/uL Abs Immat Gran (auto) 0.03 (0.00-0.03) 10^3/uL Imm/Tot Granulo (auto) 0.4 (0.0-0.5) % Sodium 141 (136-145) mmol/L Potassium 3.8 (3.5-5.1) mmol/L Chloride 99 (98-107) mmol/L Carbon Dioxide 28.5 (21.0-32.0) mmol/L Anion Gap 17.3 BUN 9.0 (7.0-18.0) mg/dL Creatinine 1.39 H (0.55-1.02) mg/dL Est GFR ( Amer) 47 L (>=60 mL/min/1.73m^2) Est GFR (Non-Af Amer) 38 L (>=60 mL/min/1.73m^2) BUN/Creatinine Ratio 6.5 Glucose 214 H (74-106) mg/dL Calcium 9.4 (8.5-10.1) mg/dL Troponin I High Sens 135.6 H* 121.6 H* (4.0-51.3) pg/mL Heart Score History: Slightly/Non-Suspicious ECG: Normal Age: >45-<65 years Risk Factors: >3 Risk Factors/ HX of CAD:2 Troponin: >3X Normal Limit Total Heart Score Recommendations & Risks:: 5 Discharge Plan Discharge Chief Complaint: Chest Pain Clinical Impression: Dyspnea, Chest pain Patient Disposition: Home, Self-Care Condition: Good Mode of Transportation: Private Vehicle Prescriptions / Home Meds: New lorazepam [Ativan] 0.5 mg tablet 0.5 mg PO Q12H MDD 2 doses PRN (Reason: anxiety) Qty: 7 0RF No Action pyridostigmine bromide 60 mg tablet 120 mg PO QID Xarelto 20 mg tablet 20 mg PO .qhs Januvia 100 mg tablet 100 mg PO DAILY venlafaxine 150 mg capsule,extended release 24hr 300 mg PO DAILY levothyroxine 50 mcg tablet 50 mcg PO DAILY furosemide 40 mg tablet 40 mg PO DAILY magnesium oxide 400 mg (241.3 mg magnesium) tablet 400 mg PO BID spironolactone 25 mg tablet 25 mg PO DAILY lamotrigine 200 mg tablet 200 mg PO HS aspirin 81 mg tablet,delayed release (DR/EC) 81 mg PO DAILY amiodarone 200 mg tablet 200 mg PO Q24H Breo Ellipta 50-25 mcg/dose blister with device 1 inh inhalation Q24H clopidogrel 75 mg tablet 75 mg PO DAILY dapagliflozin propanediol [Farxiga] 10 mg tablet 10 mg PO DAILY metoprolol succinate 25 mg tablet extended release 24 hr 25 mg PO DAILY mirtazapine 15 mg tablet 15 mg PO BEDTIME ondansetron HCl 4 mg tablet 8 mg PO Q8H PRN (Reason: nausea and vomiting) rosuvastatin 20 mg tablet 20 mg PO DAILY Entresto 24-26 mg tablet 0.5 tab PO DAILY Print Language: Vietnamese Instructions: Chest Pain (ED) Referrals: Merissa Mayfield MD [Primary Care Provider, Family Practice] - 1 week Discharge Date/Time: 07/22/24 22:14 Procedures ED US Ultrasound Cardiac Ultrasound Cardiac exam #1: Anatomical areas examined: subxiphoid and parasternal long Indications: chest pain, dyspnea and other (recent cardiac cath) Exam type: limited transthoracic echocardiogram Impression: negative exam (NO pericardial effusion)
[2024-07-22] MEDS: LORAZEPAM 2 MG/ML VIAL 1 MG IV (20:18)
[2024-07-22 20:26] LABS: Basophils Absolute Auto 0.1 10^3/uL (0.0-0.1); Basophils Percent Auto 1.4 % (0.2-2.0); Eosinophils Absolute Auto 0.3 10^3/uL (0.0-0.7); Eosinophils Percent Auto 4.1 % (0.9-7.0); Hematocrit 45.8 % (36.0-48.0); Hemoglobin 15.4 g/dL (12.0-16.0); Immature Granulocytes Abs Auto 0.03 10^3/uL (0.00-0.03); Immature Granulocytes Pct Auto 0.4 % (0.0-0.5); Lymphocytes Absolute Auto 1.4 10^3/uL (1.2-3.8); Mean Corpuscular HGB Conc 33.6 g/dL (29.9-35.2); Mean Corpuscular Hemoglobin 30.1 pg (26.7-34.0); Mean Corpuscular Volume 89.5 fL (81.0-99.0); Mean Platelet Volume 9.9 fL (9.5-13.5); Monocytes Absolute Auto 0.3 10^3/uL (0.3-0.8); Monocytes Percent Auto 3.5 % (1.7-12.0); Neutrophils Absolute Auto 5.1 10^3/uL (1.4-6.5); Neutrophils Percent Auto 71.6 % (43.0-75.0); Platelet Count 292 10^3/uL (150-450); Red Blood Count 5.12 10^6/uL (4.20-5.40); Red Cell Distribution Width 13.2 % (11.0-15.0); White Blood Count 7.1 10^3/uL (4.0-11.0)
--- NOTE | 2024-07-22 20:33 | PC.NURSE ---
SPO2 86-88% AFTER ATIVAN ADMINISTERED. SUPPLEMENTAL O2 STARTED
[2024-07-22 20:43] LABS: Anion Gap 17.3; BUN Creatinine Ratio 6.5; Calcium 9.4 mg/dL (8.5-10.1); Carbon Dioxide 28.5 mmol/L (21.0-32.0); Chloride 99 mmol/L (98-107); Estimated GFR (African America 47 (>=60 mL/min/1.73m^2); Estimated GFR (Non-African Ame 38 (>=60 mL/min/1.73m^2); Glucose 214 mg/dL (74-106); Potassium 3.8 mmol/L (3.5-5.1); Sodium 141 mmol/L (136-145)
[2024-07-22 20:48] LABS: Troponin I High Sensitivity 135.6 pg/mL (4.0-51.3)
[2024-07-22 21:27] LABS: Troponin I High Sensitivity 121.6 pg/mL (4.0-51.3)
== END 2024-07-22 22:14 | disposition home or self-care (01) ==
PROVIDERS: Nurse Practitioner Family; Emergency Provider Emergency Medicine; PCP Family Medicine
DX: R07.9 Chest pain, unspecified (principal); R06.00 Dyspnea, unspecified; Z95.5 Presence of coronary angioplasty implant and graft; R06.02 Shortness of breath; Z79.84 Long term (current) use of oral hypoglycemic drugs; Z79.01 Long term (current) use of anticoagulants; Z79.02 Long term (current) use of antithrombotics/antiplatelets; Z95.1 Presence of aortocoronary bypass graft; Z87.891 Personal history of nicotine dependence
CPT/HCPCS: 36415; 71045; 80048; 84484; 85025; 93005; 96374; 99285; J2060

== ENCOUNTER 2024-10-12 11:24 | Outpatient (OUT) | payer OTHER, SELFPAY ==
[2024-10-12 11:49] LABS: Alanine Aminotransferase 27 U/L (14-59); Albumin Globulin Ratio 0.9; Albumin Level 3.7 g/dL (3.4-5.0); Alkaline Phosphatase 128 U/L (46-116); Anion Gap 15.9; Aspartate Amino Transferase 27 U/L (15-37); Blood Urea Nitrogen 18.0 mg/dL (7.0-18.0); Calcium 9.2 mg/dL (8.5-10.1); Carbon Dioxide 28.7 mmol/L (21.0-32.0); Chloride 104 mmol/L (98-107); Cholesterol 148 mg/dL (<=200); Estimated GFR (African America 42 (>=60 mL/min/1.73m^2); Estimated GFR (Non-African Ame 35 (>=60 mL/min/1.73m^2); Globulin 3.9 g/dL; Glucose 172 mg/dL (74-106); HDL Cholesterol 63 mg/dL (40-60); Potassium 3.6 mmol/L (3.5-5.1); Sodium 145 mmol/L (136-145); Total Protein 7.6 g/dL (6.4-8.2); Triglycerides 127 mg/dL (<=150); VLDL CHOLESTEROL 25.4 mg/dL
== END 2024-10-12 11:25 | disposition home or self-care (01) ==
LOC: LAB 11:25
PROVIDERS: PCP Family Medicine; Visit Provider Nurse Practitioner Family
DX: I25.10 Atherosclerotic heart disease of native coronary artery without angina pectoris (principal); E78.2 Mixed hyperlipidemia
CPT/HCPCS: 36415; 80053; 80061

== ENCOUNTER 2024-11-26 12:12 | Outpatient (OUT) | payer OTHER, SELFPAY ==
--- OUTSIDE RECORDS SUMMARY | 2024-05-27 08:30 | XMS_ITS ---
Author Organization [employer] Address [address] [place] [address] Care Team Providers Care Supervisor Sanding Name Role Phone Pam Wagoner Primary Care Provider [phone] REASON FOR VISIT 3 month f/u Encounters Encounter Location Date Provider Diagnosis [facility] [address] [place] [address] 05/27/2024 Pam Wagoner Plan Of Treatment No Information Progress Notes * NICOLAS HARRISDOB:1960 ( 64 yo F)Acc No.[id number]:05/27/2024 Behavioral Health Patient: NICOLAS GALLAGHER Appointment Provider: Isabel Wagoner :1960 A ge:63 Y S ex:Female Date:05/27/2024 Address:[address] [place] [address], [address] [place], [place] [address] Subjective: * Chief Complaints: * 1 . 3 month f/u. * Medical History: Objective: * Vitals: Assessment: Plan: * Treatment: * Images: * Electronic signature of YVES Ross on 11/26/2024 at 12:14 PM EDT Sign off status: Pending * Appointment Provider: Isabel Wagoner Date: 0 05/27/2024 Generated for Jayda mercado/[place]al[place]ise[place]/eTransmitting on: 0 11/26/2024 12:14 PM EDT
--- OUTSIDE RECORDS SUMMARY | 2024-05-27 09:00 | XMS_ITS ---
Author Organization [employer] Address [address] [place] [address] Care Team Providers Care Circus Laborer Name Role Phone Pam Wagoner Primary Care Provider REASON FOR VISIT fu Encounters Encounter Location Date Provider Diagnosis [facility] [address] [place] [address] 05/27/2024 Pam Wagoner Plan Of Treatment No Information Progress Notes * NICOLAS HARRISDOB:1960 ( 64 yo F)Acc No.[id number]:05/27/2024 Behavioral Health Patient: NICOLAS GALLAGHER Appointment Provider: Isabel Wagoner :1960 A ge:63 Y S ex:Female Date:05/27/2024 Address:[address] [place] [address], [address] [place], [place] [address] Subjective: * Chief Complaints: * 1 . fu. * Medical History: Objective: * Vitals: Assessment: Plan: * Treatment: * Images: * Electronic signature of YVES Ross on 11/26/2024 at 12:14 PM EDT Sign off status: Pending * Appointment Provider: Isabel Wagoner Date: 05/27/2024 Generated for Jayda mercado/[place]/eTransmitting on: 0 11/26/2024 12:14 PM EDT
--- OUTSIDE RECORDS SUMMARY | 2024-06-22 06:45 | XMS_ITS ---
Author Organization [employer] Address [address] [place] [address] Care Team Providers Care Disability Insurance Hearing Officer Name Role Phone Pam Wagoner Primary Care Provider [phone] REASON FOR VISIT r/s 05/27 Encounters Encounter Location Date Provider Diagnosis [facility] [address] [place] [address] 06/22/2024 Pam Wagoner Plan Of Treatment No Information Progress Notes * NICOLAS HARRISDOB:1960 ( 64 yo F)Acc No.[id number]:06/22/2024 Behavioral Health Patient: NICOLAS GALLAGHER Appointment Provider: Isabel Wagoner :1960 A ge:63 Y S ex:Female Date:06/22/2024 Address:[address] [place] [address], [address] [place] [address], [id number] Subjective: * Chief Complaints: * 1 . R/s 05/27. * Medical History: Objective: * Vitals: Assessment: Plan: * Treatment: * Images: * Electronic signature of YVES Ross on 11/26/2024 at 12:15 PM EDT Sign off status: Pending * Appointment Provider: Isabel Wagoner Date: 0 06/22/2024 Generated for Jayda mercado/Falouiseg/eTransmitting on: 0 11/26/2024 12:15 PM EDT
--- OUTSIDE RECORDS SUMMARY | 2024-11-26 12:14 | XMS_ITS | Clinical Summary ---
Author Organization [facility] Address [address] [place] [address] Phone Care Team Providers Care Cellophane Worker Name Role Phone Unavailable Primary Care Provider Unavailabl e Social History Tobacco Use Types Packs/Day Years Used Date Smoking Tobacco: Never Assessed Comments Unknown Sex and Gender Information Value Date Recorded Sex Assigned at Not on file Legal Sex Female 10:31 AM EST Gender Identity Not on file Sexual Orientation Not on file Plan of Treatment Health Maintenance Due Date Last Done Comments CT Colonography 1960 Colonoscopy 1960 Colorectal Cancer Screening 1960 FIT-DNA (Cologuard) 1960 FIT 1960 HIV Screening 1960 Lipid Panel 1960 Sigmoidoscopy 1960 Yearly Adult Physical 1960 MMR Vaccines (1 of 1 - Stand maria del carmen series) 1962 Hepatitis C Screening 11/06/1979 Cervical Cancer Screening 1982 HPV/Cotest 1982 Pap Smear 1982 DTaP/Tdap/Td Vaccines (1 - Tdap) 11/06/1983 Mammogram 2001 Pneumococcal Vaccine (1 of 1 - PCV) 11/06/2011 Zoster Vaccines (1 of 2) 11/06/2011 COVID-19 Vaccine (1 - 2023-2 5 season) 2024 Influenza Vaccine (#1) 2024 RSV High Risk: (Elderly (60+ ) or Population) (1 - 1-dose 75+ series) 2036 HIB Vaccines Aged Out No longer eligi ble based on patient's age to complete this topic HPV Vaccines Aged Out No longer eligi ble based on patient's age to complete this topic Hepatitis A Vaccines Aged Out No long er eligible based on patient's age to complete this topic Hepatitis B Vaccines Aged Out No long er eligible based on patient's age to complete this topic IPV Vaccines Aged Out No longer eligi ble based on patient's age to complete this topic Meningococcal Vaccine Aged Out No milla blanca eligible based on patient's age to complete this topic Rotavirus Vaccines Aged Out No longer eligible based on patient's age to complete this topic
--- OUTSIDE RECORDS SUMMARY | 2024-11-26 12:15 | XMS_ITS | Encounter Summary ---
Author Organization [facility] Address [address] [place] [address] Care Team Providers Care Invoice Coder Name Role Phone Merissa Mayfield MD Primary Care Provider [phone] Encounter Details Date Type Department Care Team ([facility] Contact Info) Description 01/05/2024 Lab Requisition [facility] Hospital Lab [address] [place] [phone] Woody Coyne MD [address] [place] [address] Social History Tobacco Use Types Packs/Day Years Used Date Smoking Tobacco: Every Day Cigarettes Smokeless Tobacco: Never [facility] Utilities Answer Date Recorded In the past 12 months has [facility] electric, gas, oil, or water company threatened to shut off services in your home? No 12/05/2023 Humiliation, Afraid, Rape, and Kick questionnair e Answer Date Recorded Within the last year, have y ou been afraid of your partner or ex-partner? No 12/05/2023 Emotionally Abused Not on file 12/05/2023 Physically Abused Not on file 12/05/2023 Sexually Abused Not on file 12/05/2023 Overall Financial Resource Strain (CARDIA) Answe r Date Recorded How hard is it for you to pa y for the very basics like food, housing, medical care, and heating? Not hard at all 12/05/2023 PHQ-2 Answer Date Recorded Patient Health Questionnaire-2 Score 1 01/08/2024 Transportation Answer Date Recorded In the past 12 months, has l ack of transportation kept you from medical appointments or from getting medications? No 12/05/2023 Lack of Transportation (Non-Medical) Not on file 12/05/2023 Housing Stability Vital Sign Answer Juan Jose e Recorded Unable to Pay for Housing in the Last Year Not o n file 12/05/2023 Number of Places Lived in the Last Year Not on f ile 12/05/2023 In the last 12 months, was t here a time when you did not have a steady place to sleep or slept in a senior living (including now)? No 12/05/2023 Hunger Vital Sign Answer Date Recorded Within the past 12 months, y ou worried that your food would run out before you got the money to buy more. Never true 12/05/19 24 Ran Out of Food in the Last Year Not on file 12/05/2023 Comments No Sex and Gender Information Value Date Recorded Sex Assigned at Not on file Legal Sex Female 11:12 PM EDT Gender Identity Not on file Sexual Orientation Not on file documented as of this encounter Functional Status documented as of this encounter Plan of Treatment Upcoming Encounters Date Type Department Care Team (Late st Contact Info) Description 12/14/2024 1:00 PM EDT Office Visit [facility] [address] [place] [address] Konrad Campoverde MD [address] [place] [address] documented as of this encounter Procedures Procedure Name Priority Date/Time Associated Diagnosis Comments CBC Routine 01/05/2024 3:19 AM EDT BASIC METABOLIC PANEL Routine 01/05/2024 3:19 AM EDT documented in this encounter Results * (ABNORMAL) Basic metabolic panel (01/05/2024 3:19 AM EDT) Sodium 139 136 - 145 mmol/L 01/05/2024 5:21 AM EDT [facility] ([facility]) Potassium 4.1 3.5 - 5.1 mmol/L 01/05/2024 5:21 AM EDT [facility] ([facility]) Chloride 108(H) 98 - 107 mmol/L 01/05/2024 5:21 AM EDT [facility] ([facility]) CO2 27 21 - 31 mmol/L 01/05/2024 5:21 AM EDT [facility] ([facility]) BUN 18 7 - 25 mg/dL 01/05/2024 5:21 AM EDT [facility] ([facility]) Creatinine 0.81 0.60 - 1.20 mg/dL 01/05/2024 5:21 AM EDT [facility] ([facility]) Glucose 106(H) 70 - 100 mg/dL 01/05/2024 5:21 AM T [facility] ([facility]) Calcium 8.4(L) 8.6 - 10.3 mg/dL 01/05/2024 5:21 AM EDT [facility] ([facility]) Anion Gap 8 7 - 20 mmol/L 01/05/2024 5:21 AM T [facility] ([facility]) eGFR 82.0 >60.0 mL/min/1. 73m*2 01/05/2024 5:21 AM T [facility] ([facility]) Comment:The [facility] s estimated glomerular filtration rate (eGFR) will no longer include consideration of race in its calculation. The [employer] s eGFR Task Force developed new recommendations for [...] disproportionately affect any one group of individuals. BUN/Creatinine Ratio 22.2 12/22 5:21 AM T [facility] ([facility]) Blood Venous blood specimen / Unknown Venipuncture / Unknown 01/05/2024 3:19 AM EDT 01/05/2024 4:34 AM EDT us Woody Stanford SCHULTE LAB BLOOD ORDERABLES Final Resul t [facility] ([facility]) [address] [place], [place] [id number] * (ABNORMAL) CBC (01/05/2024 3:19 AM EDT) Auto WBC 6.99 4.00 - 10.60 10*3/uL 01/05/2024 5:09 AM EDT [facility] ([facility]) RBC 3.15(L) 3.80 - 5.00 10*6/uL 01/05/2024 5:09 AM EDT [facility] ([facility]) Hemoglobin 10.1(L) 12.0 - 15.0 g/dL 01/05/2024 5:09 AM EDT [facility] ([facility]) Hematocrit 32.6(L) 36.0 - 48.0 % 01/05/2024 5:09 AM EDT [facility] ([facility]) MCV 103.5(H) 82.0 - 98.0 fL 01/05/2024 5:09 AM EDT [facility] ([facility]) MCH 32.1 27.0 - 33.0 pg 01/05/2024 5:09 AM EDT [facility] ([facility]) MCHC 31.0(L) 32.0 - 35.0 g/dL 01/05/2024 5:09 AM EDT [facility] ([facility]) RDW 17.1(H) 11.5 - 15.0 % 01/05/2024 5:09 AM EDT [facility] ([facility]) Platelets 371 150 - 400 10*3/uL 01/05/2024 5:09 AM EDT [facility] ([facility]) Blood Venous blood specimen / Unknown Venipuncture / Unknown 01/05/2024 3:19 AM EDT 01/05/2024 4:34 AM EDT us Woody Coyne MD LAB BLOOD ORDERABLES Final Resul t [facility] ([facility]) [address] [place], [place] [phone] documented in this encounter Visit Diagnoses Not on filedocumented in this encounter Care Teams Invoice Coder Relationship Specialty Start Date End Date Merissa Mayfield MD [address] [facility] #A PCP - General 01/22/22 documented as of this encounter
--- OUTSIDE RECORDS SUMMARY | 2024-11-26 12:15 | XMS_ITS | Encounter Summary ---
Author Organization [facility] Address [address] [place] [address] Care Team Providers Care Baseboard Heating Installer Name Role Phone Merissa Mayfield MD Primary Care Provider [phone] Encounter Details Date Type Department Care Team ([facility] Contact Info) Description 01/12/2024 Lab Requisition [facility] Hospital Lab [address] [facility] [place] [phone] Woody Coyne MD [address] [place] [address] Social History Tobacco Use Types Packs/Day Years Used Date Smoking Tobacco: Former Cigarettes 1 40 Smokeless Tobacco: Never Alcohol Use Standard Drinks/Week Comments Yes 0 (1 standard drink = 0.6 oz pure alcohol) maybe every 2 or 3 months I have one while out [facility] Utilities Answer Date Recorded In the past 12 months has [employer], gas, oil, or water [employer] threatened to shut off services in your [...] place to sleep or slept in a long-term (including now)? No 12/05/2023 Hunger Vital Sign [...] on file documented as of this encounter Plan of Treatment Upcoming Encounters Date Type Department Care Team (Late st Contact Info) Description 12/14/2024 1:00 PM EDT Office Visit [facility] [address] [place] [address] Konrad Campoverde MD [address] [place] [address] documented as of this encounter Procedures Procedure Name Priority Date/Time Associated Diagnosis Comments CBC Routine 01/12/2024 3:20 AM EDT BASIC METABOLIC PANEL Routine 01/12/2024 3:20 AM EDT documented in this encounter Results * (ABNORMAL) Basic metabolic panel (01/12/2024 3:20 AM EDT) Sodium 139 136 - 145 mmol/L 01/12/2024 4:38 AM EDT [facility] ([facility]) Potassium 4.1 3.5 - 5.1 mmol/L 01/12/2024 4:38 AM T [facility] ([facility]) Chloride 104 98 - 107 mmol/L 01/12/2024 4:38 AM T [facility] ([facility]) CO2 29 21 - 31 mmol/L 01/12/2024 4:38 AM T [facility] ([facility]) BUN 25 7 - 25 mg/dL 01/12/2024 4:38 AM [facility] ([facility]) Creatinine 0.91 0.60 - 1.20 mg/dL 01/12/2024 4:38 AM [facility] ([facility]) Glucose 150(H) 70 - 100 mg/dL 01/12/2024 4:38 AM [facility] ([facility]) Calcium 8.6 8.6 - 10.3 mg/dL 01/12/2024 4:38 AM [facility] ([facility]) Anion Gap 10 7 - 20 mmol/L 01/12/2024 4:38 AM [facility] ([facility]) eGFR 71.3 >60.0 mL/min/1. 73m*2 01/12/2024 4:38 AM [facility] ([facility]) Comment:[facility] s estimated glomerular filtration rate (eGFR) will [...] any one group of individuals. BUN/Creatinine Ratio 27.5 12/23 4:38 AM [facility] ([facility]) Blood Venous blood specimen / Unknown Venipuncture / Unknown 01/12/2024 3:20 AM EDT 01/12/2024 4:07 AM EDT Woody Coyne MD LAB BLOOD ORDERABLES Final Resul t Performing Organization Address City/[facility]/ZIP Co de Phone Number [facility] ([facility]) [address] [place], [place] [id number] * (ABNORMAL) CBC (01/12/2024 3:20 AM EDT) Auto WBC 5.96 4.00 - 10.60 10*3/uL 01/12/2024 4:15 AM EDT [facility] ([facility]) RBC 3.25(L) 3.80 - 5.00 10*6/uL 01/12/2024 4:15 AM EDT [facility] ([facility]) Hemoglobin 10.3(L) 12.0 - 15.0 g/dL 01/12/2024 4:15 AM EDT [facility] ([facility]) Hematocrit 32.3(L) 36.0 - 48.0 % 01/12/2024 4:15 AM EDT [facility] ([facility]) MCV 99.4(H) 82.0 - 98.0 fL 01/12/2024 4:15 AM EDT [facility] ([facility]) MCH 31.7 27.0 - 33.0 pg 01/12/2024 4:15 AM EDT [facility] ([facility]) MCHC 31.9(L) 32.0 - 35.0 g/dL 01/12/2024 4:15 AM EDT [facility] ([facility]) RDW 15.6(H) 11.5 - 15.0 % 01/12/2024 4:15 AM EDT [facility] ([facility]) Platelets 263 150 - 400 10*3/uL 01/12/2024 4:15 AM EDT [facility] ([facility]) Blood Venous blood specimen / Unknown Venipuncture / Unknown 01/12/2024 3:20 AM EDT 01/12/2024 4:08 AM EDT us Woody Coyne MD LAB BLOOD ORDERABLES Final Resul t [facility] ([facility]) [address] [place] [address] documented in this encounter Visit Diagnoses Not on filedocumented in this encounter Care Teams Baseboard Heating Installer Relationship Specialty [place] [address] [place] [address] #A PCP - General 01/22/22 documented as of this encounter
--- OUTSIDE RECORDS SUMMARY | 2024-11-26 12:15 | XMS_ITS | Encounter Summary ---
Author Organization [facility] Address [address] [place] [address] Care Team Providers Care Airborne Operations Superintendent Name Role Phone Merissa Mayfield MD Primary Care Provider [phone] Encounter Details Date Type Department Care Team ([facility] Contact Info) Description 12/31/2023 Lab Requisition [facility] Hospital Lab [address] [facility] [place] [phone] Woody Coyne MD [address] [place] [address] Social History Tobacco Use Types Packs/Day Years Used Date Smoking Tobacco: Every Day Cigarettes Smokeless Tobacco: Never [facility] Utilities Answer Date Recorded In the past 12 months has [facility] electric, gas, oil, or water company threatened [...] Date Recorded Patient Health Questionnaire-2 Score 1 11/11/2022 Transportation Answer Date Recorded In the past 12 months, has l ack of transportation kept you from medical appointments or from getting medications? No 12/05/2023 Lack of Transportation (Non-Medical) Not on file 12/05/2023 Housing Stability Vital Sign Answer Juna Jose e Recorded Unable to Pay for Housing in the Last Year Not o n file 12/05/2023 Number of Places Lived in the Last Year Not on f ile 12/05/2023 In the last 12 months, was t here a time when you did not have a steady place to sleep or slept in a usp (including now)? No 12/05/2023 Hunger Vital Sign [...] Description 12/14/2024 1:00 PM EDT Office Visit [facility] [address] [place] [address] Konrad Campoverde MD [address] [place] [address] documented as of this encounter Procedures Procedure Name Priority Date/Time Associated Diagnosis Comments CBC WITH AUTO DIFFERENTIAL Routine 12/31/2023 5:30 AM EDT CBC AND DIFFERENTIAL Routine 12/31/2023 5:30 AM EDT COMPREHENSIVE METABOLIC PANEL Routine 12/31/2023 5:30 AM EDT documented in this encounter Results * (ABNORMAL) CBC auto differential (12/31/2023 5:30 AM EDT) Auto WBC 6.21 4.00 - 10.60 10*3/uL 12/31/2023 6:49 AM [facility] ([facility]) RBC 2.74(L) 3.80 - 5.00 10*6/uL 12/31/2023 6:49 AM [facility] ([facility]) Hemoglobin 8.7(L) 12.0 - 15.0 g/dL 12/31/2023 6:49 AM [facility] ([facility]) Hematocrit 28.4(L) 36.0 - 48.0 % 12/31/2023 6:49 AM [facility] ([facility]) MCV 103.6(H) 82.0 - 98.0 fL 12/31/2023 6:49 AM [facility] ([facility]) MCH 31.8 27.0 - 33.0 pg 12/31/2023 6:49 AM [facility] ([facility]) MCHC 30.6(L) 32.0 - 35.0 g/dL 12/31/2023 6:49 AM [facility] ([facility]) RDW 17.5(H) 11.5 - 15.0 % 12/31/2023 6:49 AM [facility] ([facility]) Neutrophils % 66.4 40.0 - 72.0 % 12/31/2023 6:49 AM [facility] ([facility]) Lymphocytes % 20.0 20.0 - 45.0 % 12/31/2023 6:49 AM [facility] ([facility]) Monocytes % 5.6 5.0 - 12.0 % 12/31/2023 6:49 AM [facility] ([facility]) Eosinophils % 6.3(H) 0.0 - 6.0 % 12/31/2023 6:49 AM [facility] ([facility]) Basophils % 1.1(H) 0.0 - 1.0 % 12/31/2023 6:49 AM [facility] ([facility]) Neutrophils Absolute 4.12 1.60 - 7.60 10*3/uL 12/31/2023 6:49 AM [facility] ([facility]) Lymphocytes Absolute 1.24 1.20 - 4.00 10*3/uL 12/31/2023 6:49 AM [facility] ([facility]) Monocytes Absolute 0.35 0.10 - 1.00 10*3/uL 12/31/2023 6:49 AM EDT [facility] ([facility]) Eosinophils Absolute 0.39 0.00 - 0.50 10*3/uL 12/31/2023 6:49 AM EDT [facility] ([facility]) Basophils Absolute 0.07 0.00 - 0.20 10*3/uL 12/31/2023 6:49 AM EDT [facility] ([facility]) Platelets 405(H) 150 - 400 10*3/uL 12/31/2023 6:49 AM EDT [facility] ([facility]) nRBC % 0.0 0 % 12/31/2023 6:49 AM EDT [facility] ([facility]) Immature Granulocytes % 0.6 0.0 - 1.0 % 12/31/2023 6:49 AM EDT [facility] ([facility]) Immature Granulocytes Absolute 0.04 0.00 - 0.20 10*3/uL 12/31/2023 6:49 AM EDT [facility] ([facility]) Blood Venous blood specimen / Unknown Venipuncture / Unknown 12/31/2023 5:30 AM EDT 12/31/2023 5:52 AM EDT us Woody Stanford SCHULTE LAB BLOOD ORDERABLES Final Resul t [facility]) [address] [place] [address] * (ABNORMAL) Comprehensive metabolic panel (12/31/2023 5:30 AM EDT) Sodium 137 136 - 145 mmol/L 12/31/2023 6:43 AM EDT [facility] ([facility]) Potassium 4.3 3.5 - 5.1 mmol/L 12/31/2023 6:43 AM EDT [facility] ([facility]) Chloride 104 98 - 107 mmol/L 12/31/2023 6:43 AM EDT [facility] ([facility]) CO2 28 21 - 31 mmol/L 12/31/2023 6:43 AM T [facility] ([facility]) Anion Gap 9 7 - 20 mmol/L 12/31/2023 6:43 AM [facility] ([facility]) BUN 17 7 - 25 mg/dL 12/31/2023 6:43 AM [facility] ([facility]) Creatinine 0.66 0.60 - 1.20 mg/dL 12/31/2023 6:43 AM [facility] ([facility]) BUN/Creatinine Ratio 25.8 11/2023 6:43 AM T [facility] ([facility]) Glucose 112(H) 70 - 100 mg/dL 12/31/2023 6:43 AM [facility] ([facility]) Calcium 8.5(L) 8.6 - 10.3 mg/dL 12/31/2023 6:43 AM [facility] ([facility]) AST 19 13 - 39 U/L 12/31/2023 6:43 AM [facility] ([facility]) ALT (SGPT) 11 7 - 52 U/L 12/31/2023 6:43 AM [facility] ([facility]) Alkaline Phosphatase 115(H) 34 - 104 U/L 12/31/2023 6:43 AM [facility] ([facility]) Total Protein 5.7(L) 6.0 - 8.3 g/dL 12/31/2023 6:43 AM [facility] ([facility]) Albumin 3.2(L) 3.5 - 5.7 g/dL 12/31/2023 6:43 AM [facility] ([facility]) Total Bilirubin 0.3 0.3 - 1.0 mg/dL 12/31/2023 6:43 AM [facility] ([facility]) eGFR 99.1 >60.0 mL/min/1. 73m*2 12/31/2023 6:43 AM [facility] ([facility]) Comment:[facility] s estimated glomerular filtration rate (eGFR) [...] disproportionately affect any one group of individuals. Blood Venous blood specimen / Unknown Venipuncture / Unknown 12/31/2023 5:30 AM EDT 12/31/2023 5:52 AM EDT Woody Coyne MD LAB BLOOD ORDERABLES Final Resul t [facility] ([facility]) [address] [place] [address] documented in this encounter Visit Diagnoses Not on filedocumented in this encounter Care Teams Airborne Operations Superintendent Relationship Specialty Start Date End Date Merissa Mayfield MD [address] [facility] #A PCP - General 01/22/22 documented as of this encounter
--- OUTSIDE RECORDS SUMMARY | 2024-11-26 12:15 | XMS_ITS | Clinical Summary ---
Author Organization [facility] Address [address] [place] [address] Care Team Providers Care Metal Spraying Machine Operator Name Role Phone Merissa Mayfield MD Primary Care Provider [phone] Allergies Active Allergy Reactions Criticality Noted Date Comments Codeine Other 03/11/2014 Metoclopramide Hcl Other 03/11/2014 Sulfa (Sulfonamide Antibiotics) Other 02/21 Medications lamoTRIgine (LaMICtal) 200 mg tablet Take 1 tablet by mouth in the evening. Active rivaroxaban (Xarelto) 20 mg tablet Take 20 mg by mouth once daily as directed. Active venlafaxine XR (Effoxor-XR) 150 mg 24 hr capsule Take 2 capsules by mouth in the morning. Active pyridostigmine (Mestinon) 60 mg tabletIndications: POTS (postural orthostatic tachycardia syndrome) Take 2 tablets (120 mg) by mouth in the morning, at noon, in the evening, and at bedtime. 720 tablet 3 04/23/19 24 Active mirtazapine (Remeron) 15 mg tablet Pt not taking 10/23/19 24 Active levothyroxine (Synthroid, Levoxyl) 50 mcg tablet Take 50 mcg by mouth before breakfast. Active fluticasone furoate-vilanteroL (Breo Ellipta) 100-25 mcg/dose inhaler Inhale in the morning. Active furosemide (Lasix) 40 mg tabletIndications: LOPEZ (dyspnea on exertion) Take 1 tablet (40 mg) by mouth before breakfast. 90 tablet 3 02/05/20 24 025 Active Additional Information Patient taking differently:40 mg oral2 times daily, Reported on 05/20/2024 aspirin 81 mg EC tablet Take 81 mg by mouth in the morning. Active magnesium oxide (Mag-Ox) 400 mg tablet Take 400 mg by mouth two times daily. Active dapagliflozin propanediol (Farxiga) 10 mgIndications:hear t failure,type 2 diabetes mellitus Take 1 tablet (10 mg) by mouth once daily as directed. 90 tablet 3 05/20/19 Active metoprolol succinate XL (Toprol-XL) 25 mg 24 hr tabletIndications: Acute on chronic congestive heart failure, unspecified heart failure type (CMS/HCC) Take 1 tablet (25 mg) by mouth once daily as directed. Do not crush or chew. 90 tablet 3 05/20/19 Active sacubitril-valsart an (Entresto) 24-26 mg tabletIndications: Acute on chronic congestive heart failure, unspecified heart failure type (CMS/HCC) Take 0.5 tablets by mouth two times daily. 90 tablet 3 05/20/19 Active rosuvastatin (Crestor) 20 mg tabletIndications: Mixed hyperlipidemia Take 1 tablet (20 mg) by mouth in the morning. 30 tablet 11 05/20/19 Active spironolactone (Aldactone) 25 mg tabletIndications: LOPEZ (dyspnea on exertion) Take 1 tablet (25 mg) by mouth in the morning. 90 tablet 3 05/27/19 Active Additional Information Patient taking differently: 12.5 mgoral Daily, Reported on 06/29/2024 ondansetron (Zofran) 4 mg tablet Take 8 mg by mouth every 8 (eight) hours if needed. 06/01/19 Active clopidogrel (Plavix) 75 mg tabletIndications: Coronary artery disease due to lipid rich plaque Take 1 tablet (75 mg) by mouth in the morning. 90 tablet 3 07/22/19 25 Active amiodarone (Pacerone) 200 mg tabletIndications: Paroxysmal atrial fibrillation (CMS/HCC) TAKE 2 TABLETS BY MOUTH TWO TIMES DAILY FOR 14 DAYS, THEN 1 TABLET IN THE MORNING. 132 tablet 1 09/21/19 Active Active Problems Problem Noted Date Diagnosed Date Abnormal findings on diagnos tic imaging of heart and coronary circulation 07/13/2024 Abnormal stress test 07/06/2024 Coronary artery disease 07/06/2024 Mood disorder 05/20/2024 Hypothyroidism 05/12/2024 Assessment & Plan (05/12/2024 3:04 AM EST): Continue with home medication, levothyroxine 50 mcg tablet p.o. daily Anxiety 05/11/2024 Insomnia 05/11/2024 Acute on chronic congestive heart failure, unspecified heart failure type 05/11/2024 NSTEMI (non-ST elevated myocardial infarction) 0 05/11/2024 Fluid overload 05/11/2024 Status post four vessel coronary artery bypass 0 12/15/2023 Multiple vessel coronary artery disease 12/10/19 Multi-vessel coronary artery stenosis 12/08/2023 Coronary artery disease invo lving flandreau coronary artery of flandreau heart without angina pectoris 12/06/2023 Unstable angina 12/05/2023 Diabetes mellitus type II, non insulin dependent 12/03/2023 Assessment & Plan (05/12/2024 3:04 AM EST): Insulin lispro per sliding scale before meals and at bedtime. Continue home medication Januvia 100 mg p.o. daily Assessment & Plan (12/04/2023 4:05 PM EDT): Diabetes is managed by PCP LOPEZ (dyspnea on exertion) 12/03/2023 Assessment & Plan (05/12/2024 3:04 AM EST): Continue diuresis as above Supplemental O2 at 2-4 L/min via nasal cannula as needed Assessment & Plan (12/04/2023 4:10 PM EDT): In light of worsening LOPEZ, severe coronary artery calcification noted on CT chest, abnormal ECG with now inverted T waves noted and d/w Dr Jason- interventionalist- regarding plan for cardiac cath to assess for any concerning coronary stenosis/disease and he agrees with plan of care. She multiple co morbidites for CAD, and calculated ASCVD which was elevated therefore I prescribed lipitor 40 mg daily and d/w pt to call office for any myalgias or concerns. Repeat LFT and lipid level in 2-3 months. D/W pt risks of cardiac catheterization including but not limited to: Bleeding/bruising, infection, blood clot or damage to a blood vessel, abnormal heart rhythm, chest pain, heart attack, sudden blockage or tear/damage to a coronary artery, kidney damage from contrast, allergic reaction to medications/ or contrast, stroke, . 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 Will increase pyridostigmine to 120 mg qid, continue adequate hydration, additional salt to diet. Monitor b/p and SBP 140-150 is ok with known POTS. Chest pain 01/22/2022 Assessment & Plan (12/04/2023 4:11 PM EDT): Chest tightness and LOPEZ will plan for cardiac cath in light of severe coronary calcifications noted, DM, HTN, HPL, abnormal ECG Palpitations 01/22/2022 Pulmonary embolism 01/22/2022 Supraventricular tachycardia 01/22/2022 Assessment & Plan (09/11/2022 9:41 AM EDT): Stable- continue toprol Primary pulmonary hypertension 11/08/2013 Assessment & Plan (09/11/2022 9:40 AM EDT): Reports continued LOPEZ Will repeat echocardiogram to assess cardiac function and rt sided pressures Chronic pulmonary heart disease 04/14/2013 Morbid obesity 04/14/2013 Assessment & Plan (12/04/2023 4:01 PM EDT): Managed per PCP Recommended weight loss Obstructive sleep apnea syndrome 04/14/2013 Assessment & Plan (05/12/2024 3:04 AM EST): Per primary team to consider addition of CPAP/BiPAP nightly Benign essential hypertension 04/11/2013 Assessment & Plan (05/12/2024 3:07 AM EST): CXR negative for any evidence of acute cardiopulmonary process. Mild cardiomegaly noted. BNP elevated 537 Trace to+1 pitting edema BLE No supplemental O2 use, on room air Continue diuresis with Lasix 40 mg p.o. daily ECG showing sinus tachycardia with possible right ventricular hypertrophy, nonspecific ST abnormality. Continue IV heparin gtt. Hold Xarelto. Trend troponin X3 Continue home medications including: Patient atorvastatin 40 mg p.o. daily, magnesium oxide 400 mg p.o. twice daily, atorvastatin 40 mg p.o. daily spironolactone 12.5 mg p.o. daily, ASA 81 mg EC tab p.o. daily, and metoprolol tartrate 12.5 mg p.o. twice daily. Consult cardiology. Cardiology paged. Admitted to stepdown. Continuous telemetry N.p.o. at midnight pending potential heart cath Assessment & Plan (09/11/2022 8:51 AM EDT): Hypertension is stable Continue toprol Dyspnea 04/11/2013 Assessment & Plan (09/11/2022 9:42 AM EDT): Continued LOPEZ will repeat echocardiogram to assess rt sided pressures, recommended pt to quit smoking. Infarction of lung due to iatrogenic pulmonary e mbolism 04/11/2013 Encounters Date Type Department Care Team Description 11/03/2024 Orders Only [facility] [address] [place] [address] Leslye Hickman LPN NSTEMI (non-ST elevated myocardial infarction) (CMS/HCC) (Primary Dx); Deficient knowledge of percutaneous coronary intervention (PCI) and stenting 10/18/2024 Telephone [facility] [address] [place] [address] FranciscoStacy MA 09/20/2024 Refill [facility] [address] [place] [facility] [place] [address] Konrad Campoverde MD Paroxysmal atrial fibrillation (CMS/HCC) 08/31/2024 1:00 PM EDT Office Visit [facility] [address] [place] [facility] [place] [address] Konrad Campoverde MD Supraventricular tachycardia (Primary Dx) from Last 3 Months Immunizations Immunization Administration Dates Next Due Unspecified Sars-Cov-2 Vaccination 05/17/2020, Family History Medical History Relation Name Comments Alcohol abuse Brother Migraines Daughter 1 Anemia Father Rubio Amin Atrial fibrillation Father Rubio Amin Diabetes type II Father Rubio Amin Hypertension Father Rubio Amin Obesity Father Rubio Amin Breast cancer Mother Lupe Amin Cancer Mother Lupe Amin Depression Mother Lupe Amin Autoimmune disease Nephew POTS Nephew POTS Niece Lupus Sister Aneurysm Neg Hx Sudden Neg Hx Relation Name Status Comments Brother Daughter 1 Alive Daughter 2 Alive Father Rubio Amin Mother Lupe Amin Nephew Alive Niece Alive Sister Social History Tobacco Use Types Packs/Day Years Used Date Smoking Tobacco: Former Cigarettes 1 40 Smokeless Tobacco: Never Tobacco Cessation:Counseling Given: Not Answered Alcohol Use Standard Drinks/Week Comments Yes 0 (1 standard drink = 0.6 oz pure alcohol) maybe every 2 or 3 months I have one while out [facility] Utilities Answer Date Recorded In the past 12 months has e [employer], gas, oil, or water [employer] threatened to shut off services in your home? No 05/11/2024 Humiliation, Afraid, Rape, and Kick questionnair e Answer Date Recorded Within the last year, have y ou been afraid of your partner or ex-partner? No 05/11/2024 Emotionally Abused Not on file 05/11/2024 Physically Abused Not on file 05/11/2024 Sexually Abused Not on file 05/11/2024 Overall Financial Resource Strain (CARDIA) Answe r Date Recorded How hard is it for you to pa y for the very basics like food, housing, medical care, and heating? Somewhat hard 05/11/2024 PHQ-2 Answer Date Recorded Patient Health Questionnaire-2 Score 1 01/08/2024 Transportation Answer Date Recorded In the past 12 months, has l ack of transportation kept you from medical appointments or from getting medications? No 05/11/2024 Lack of Transportation (Non-Medical) Not on file 05/11/2024 Housing Stability Vital Sign Answer Juan Jose e Recorded In the last 12 months, was t here a time when you were not able to pay the mortgage or rent on time? No 05/11/2024 Number of Times Moved in the Last Year Not on fi le 05/11/2024 At any time in the past 12 m [facility], were you homeless or living in a chcf (including now)? No 05/11/2024 Hunger Vital Sign Answer Date Recorded Within the past 12 months, y ou worried that your food would run out before you got the money to buy more. Never true 05/11/19 25 Ran Out of Food in the Last Year Not on file 05/11/2024 Comments No Sex and Gender Information Value Date Recorded Sex Assigned at Not on file Legal Sex Female 11:12 PM EDT Gender Identity Not on file Sexual Orientation Not on file Last Filed Vital Signs Vital Sign Reading Time Taken Comments Blood Pressure 111/66 08/31/2024 1:35 PM EDT Pulse 51 08/31/2024 1:35 PM EDT Temperature 36.3 C (97.4 F) 05/14/2024 3:26 PM EST Respiratory Rate 17 07/21/2024 6:15 PM EDT Oxygen Saturation 95% 08/31/2024 1:35 PM EDT Inhaled Oxygen Concentration - - Weight 111 kg (245 lb) 08/31/2024 1:35 PM EDT Height 154.9 cm (5' 1 ) 08/31/2024 1:35 PM EDT Body Mass Index 46.29 08/31/2024 1:35 PM EDT Plan of Treatment Upcoming Encounters Date Type Department Care Team (Late st Contact Info) Description 12/14/2024 1:00 PM EDT Office Visit [facility] [address] [place] [address] Konrad Campoverde MD [address] [place] [address] Health Maintenance Due Date Last Done Comments CT Colonography 1961 Colonoscopy 1961 Colorectal Cancer Screening 1961 FIT-DNA 1961 FIT 1961 FOBT 1961 Sigmoidoscopy 1961 Diabetes: Retinopathy Screening 11/06/1971 Diabetes: Urine Protein Screening 1980 Pneumococcal Vaccine: Pediatrics (0 to 5 Years) and At-Risk Patients (6 to 64 Years) (1 of 2 - PCV) 1980 Pap Smear 1982 Adult Tetanus 11/06/1983 Cervical Cancer Screening 11/06/1991 HPV/Cotest 11/06/1991 Mammogram 2001 Zoster Vaccines (1 of 2) 11/06/2011 Diabetes: Hemoglobin A1C 03/06/2024 12/06/2023 COVID-19 Vaccine ( season) 2024 05/17/2020, 05/17/2020, 04/26/2020, Additional history exists Influenza Vaccine (#1) 2024 Depression Screening 01/07/2025 01/08/2024 HIB Vaccines Aged Out No longer eligi ble based on patient's age to complete this topic HPV Vaccines Aged Out No longer eligi ble based on patient's age to complete this topic IPV Vaccines Aged Out No longer eligi ble based on patient's age to complete this topic Meningococcal B Vaccine Aged Out No l onger eligible based on patient's age to complete this topic Meningococcal Vaccine Aged Out No milla blanca eligible based on patient's age to complete this topic Rotavirus Vaccines Aged Out No longer eligible based on patient's age to complete this topic Medical Devices Implanted Type Area Radio Repair Teacher Device Identifier Shelf Expiration Date Model / Serial / Lot Closure,Flx,W Michelle kelsey,3 5mm - [id number] Implanted:Qty : 1 on 12/15/2023 by Woody Sarkar MD at [facility] Device N/A: Chest code-laboration 04/24/2026 [id number] / / [id number] Description:Left atrial appe ndage clipping Stent,Synergy Mr 2.50 X 24 - [id number] - [id number] Implanted:Qty : 1 on 07/21/2024 by Benito Bull MD at [facility] Drug Eluting Stent Right: Heart code-laboration [id number] 11/09/2025 [id number] / [id number] / [id number] V Plate 4 Holes Implanted:Qty : 1 on 12/15/2023 by Woody Sarkar MD at [facility] N/A: Chest LOIDA 115.601.0 4 / / 16mm Screw Gold Implanted:Qty : 4 on 12/15/2023 by Woody Sarkar MD at [facility] N/A: Chest LOIDA 100.035.1 6 / / Procedures Procedure Name Priority Date/Time Associated Diagnosis Comments HEMOGLOBIN A1C Add-On 12/06/2023 6:18 AM EDT from Last 3 Months or Most Recently Relevant to Health Maintenance Results * Hemoglobin A1c (12/06/2023 6:18 AM EDT) Hemoglobin A1C 5.8 4.0 - 6.0 % 12/07/2023 10:38 AM EDT [facility] Estimated Average Glucose 120 mg/dL 12/07/2023 10:38 AM EDT [facility] Blood Venous blood specimen / Unknown Arterial Line / Unknown 12/06/2023 6:18 AM EDT 12/06/2023 7:06 AM EDT us Ananda Power SPECIMEN PREPARATION ASSISTANT LAB BLOOD ORDERABLES Fi nal Result [facility] [address] [place] [address] from Last 3 Months or Most Recently Relevant to Health Maintenance Insurance [facility] Advance Directives * Full Code (Latest Code Status on File) Date Activated Date Inactivated Comments 07/21/2024 2:29 PM 07/21/2024 8:36 PM * Full Code Date Activated Date Inactivated Comments 05/11/2024 10:28 PM 05/14/2024 5:54 PM * Full Code Date Activated Date Inactivated Comments 12/26/2023 3:53 PM 12/30/2023 5:46 PM * Full Code Date Activated Date Inactivated Comments 12/05/2023 5:22 PM 12/08/2023 3:54 PM * Full Code Date Activated Date Inactivated Comments 12/05/2023 3:56 PM 12/05/2023 5:22 PM Care Teams Metal Spraying Machine Operator Relationship Specialty Start Date End Date Merissa Mayfield MD [address] [facility] PCP - General 01/22/22
--- OUTSIDE RECORDS SUMMARY | 2024-11-26 12:15 | XMS_ITS | Clinical Summary ---
Author Organization [facility] Address [address] [place] [address] Care Team Providers Care Office Auditor Name Role Phone Merissa Mayfield MD Primary Care Provider [phone] Allergies Active Allergy Reactions Criticality Noted Date Comments Codeine Other: See Comments 07/12/2009 severe headaches Metoclopramide Hcl Intolerance 07/12/2009 Sulfa (Sulfonamide Antibiotics) Itching 08/19/2018 Medications venlafaxine hcl(EFFEXOR XR 150 MG 24 HR CAP) Take two(2) times daily. 0 07/12/2009 Active hydroxychloroqui ne (PLAQUENIL) 200 mg tablet Take by mouth twice daily. Active lamoTRIgine (LAMICTAL) 150 mg tablet Take 150 mg by mouth daily at bedtime. Active lisinopril (ZESTRIL, PRINIVIL) 5 mg tablet Take 5 mg by mouth once daily. Active metoprolol succinate ER (TOPROL XL) 100 mg Tb24 Take by mouth once daily. Active warfarin (COUMADIN) 5 mg tablet Take 10 mg by mouth daily as directed. Active Omeprazole 40 mg capsule Take 40 mg by mouth once daily. Active Family History Medical History Relation Comments Breast Cancer Mother Relation Status Comments Mother Social History Tobacco Use Types Packs/Day Years Used Date Smoking Tobacco: Every Day Cigarettes Alcohol Use Standard Drinks/Week Comments Not Asked 0 (1 standard drink = 0.6 oz pur e alcohol) Comments No Sex and Gender Information Value Date Recorded Sex Assigned at Not on file Legal Sex Female 8:28 AM EST Gender Identity Not on file Sexual Orientation Not on file Last Filed Vital Signs Vital Sign Reading Time Taken Comments Blood Pressure 142/80 08/20/2018 11:03 AM EDT Pulse 61 08/20/2018 11:03 AM EDT Temperature 37 C (98.6 F) 08/20/2018 11:03 AM EDT Respiratory Rate 18 08/20/2018 11:0 3 AM EDT Oxygen Saturation 97% 08/20/2018 11: 03 AM EDT Inhaled Oxygen Concentration - - Weight 115.5 kg (254 lb 9.6 oz) 019 11:03 AM EDT Height 160 cm (5' 2.99 ) 08/20/2018 11: 03 AM EDT Body Mass Index 45.11 08/20/2018 11:03 AM EDT Plan of Treatment Health Maintenance Due Date Last Done Comments Anxiety Screening 11/06/1979 Depression Screening 11/06/1979 HIV Screening 11/06/1979 DTaP,Tdap,Td Vaccine (1 - Tdap) 1980 Cervical Cancer Screening [address] Colonography 2006 Cologuard (FIT-DNA) 2006 Colonoscopy 2006 Colorectal Cancer Screening 2006 Fecal Occult Blood 2006 Lipid Screening 2006 Sigmoidoscopy 2006 Pneumococcal Vaccine: 50+ (1 of 1 - PCV) 11/06/2011 Shingrix Vaccine (1 of 2) 11/06/2011 Diabetes Screening 07/12/2012 07/12/2009 Influenza Vaccine (#1) 2024 RSV Vaccine (1 - 1-dose 75+ series) 2036 Hepatitis C Screening Completed 07/12/2009 Procedures Procedure Name Priority Date/Time Associated Diagnosis Comments HEP REMOTE PANEL BL Routine 07/12/2009 1 1:16 AM EDT Right Wrist Pain Fibromyalgia Syndrome Hist Of Fatigue COMPREHENSIVE METABOLIC PANEL Routine 07/12/2009 11:16 AM EDT Right Wrist Pain Fibromyalgia Syndrome Hist Of Depression Fatigue [place]ia from Last 3 Months or Most Recently Relevant to Health Maintenance Results * (ABNORMAL) HEP REMOTE PANEL BL (07/12/2009 11:16 AM EDT) Hep B Core Ab, Total Negative NEGAT [facility] Hep C Antibody IA Negative NEGAT [facility] HBsAg Negative NEGAT [facility] Hep B Surface Ab, Qual Positive(A) NEGAT [facility] Comment: These results are consistent with previous exposure and/or immunity to the hepatitis B virus antigen. Blood specimen (specimen) BLOOD SPECIMEN / Unknown 07/12/2009 11:16 AM EDT us Joan Nayak MD LABORATORY Final Resul t [facility] [address] [place] [address] * (ABNORMAL) COMP METABOLIC PANEL (07/12/2009 11:16 AM EDT) Protein, Total 7.5 6.0 - 8.4 g/dL [facility] Albumin 4.4 3.5 - 5.0 g/dL [facility] Calcium 9.5 8.5 - 10.5 mg/dL [facility] Bilirubin, Total 0.4 0.0 - 1.5 mg/dL [facility] Alkaline Phosphatase 88 40 - 150 U/L [facility] AST 17 7 - 40 U/L [facility] Glucose 99 65 - 100 mg/dL [facility] BUN 15 8 - 25 mg/dL [facility] Creatinine 0.68(L) 0.70 - 1.40 mg/dL [facility] Sodium 141 132 - 148 mmol/L [facility] Potassium 4.1 3.5 - 5.0 mmol/L [facility] Chloride 104 98 - 110 mmol/L [facility] CO2 28 23 - 32 mmol/L [facility] Anion Gap 9 0 - 15 mmol/L [facility] ALT 16 0 - 45 U/L [facility] eGFR- >60 [facility] eGFR-All Other Races >60 . [facility] Comment: eGFR (Estimated GFR) Units of measure: mL/min/1.73 meters squared eGFR is derived from the reexpressed MDRD Study equation using the following parameters: serum creatinine, age, gender and race. The creatinine assay has been calibrated to be traceable to IDMS. An eGFR <60 mL/min/1.73m2 for >3 months is consistent with chronic kidney disease. Refer to KDOQI guidelines for clinical interpretation. Blood specimen (specimen) BLOOD SPECIMEN / Unknown 07/12/2009 11:16 AM EDT us Joan Nayak MD LABORATORY Final Resul t [facility] [address] [place] [address] from Last 3 Months or Most Recently Relevant to Health Maintenance Care Teams Office Auditor Relationship Specialty Start Date End Date Merissa Mayfield MD [address] [place] [address] PCP - General 06/20/09
--- OUTSIDE RECORDS SUMMARY | 2024-11-26 12:15 | XMS_ITS | Clinical Summary ---
Author Organization [facility] Healthcare Address [address] [place] [address] Care Team Providers Care Crisis Intervention Specialist Name Role Phone Merissa Mayfield MD Primary Care Provider [phone] Allergies Active Allergy Reactions Criticality Noted Date Comments Codeine 07/12/2009 Other Reaction(s): other, Other: See Comments, Unknown severe headaches Metoclopramide 07/12/2009 Other Reaction(s): Intolerance, involuntary movements, other Sulfa Antibiotics Itching,Rash Low 03/11/2014 Other Reaction(s): other Medications busPIRone (Buspar) 10 MG tablet Take 10 mg by mouth in the morning and 10 mg before bedtime. 05/08/2023 Active HYDROcodone-keena taminophen (Argyle) 5-325 MG tablet TAKE 1 TABLET BY MOUTH EVERY 6 HOURS NEEDED FOR PAIN FOR 7 DAYS 05/08/2023 Active hydroxychloroqu ine (Plaquenil) 200 MG tablet Take 1 tablet by mouth in the morning and 1 tablet before bedtime. Active lamoTRIgine (LaMICtal) 200 MG tablet 04/17/2023 Active metoprolol succinate XL (Toprol-XL) 50 MG 24 hr tablet Take 1 tablet by mouth Daily 02/07/2023 Active Xarelto 20 MG tablet Take 1 tablet every day by oral route for 90 days. Active Januvia 100 MG tablet Take 1 tablet every day by oral route for 90 days. Active traZODone (Desyrel) 50 MG tablet Take 50 mg by mouth at bedtime 05/08/2023 Active venlafaxine XR (Effexor XR) 150 MG 24 hr capsule Take 2 capsules by mouth Daily Active pyridostigmine (Mestinon) 60 MG tablet Take by mouth Active famotidine (Pepcid) 20 MG tablet Take by mouth Active Active Problems No known active problems Family History Medical History Relation Name Comments Diabetes Father Cancer Mother Relation Name Status Comments Father Mother Social History Tobacco Use Types Packs/Day Years Used Date Smoking Tobacco: Every Day Cigarettes Alcohol Use Standard Drinks/Week Comments Never 0 (1 standard drink = 0.6 oz pur e alcohol) Comments Unknown Sex and Gender Information Value Date Recorded Sex Assigned at Not on file Legal Sex Female 8:35 PM EDT Gender Identity Not on file Sexual Orientation Not on file Last Filed Vital Signs Vital Sign Reading Time Taken Comments Blood Pressure 134/70 07/21/2019 12:00 PM EDT Pulse - - Temperature 36.5 C (97.7 F) 06/04/2023 10:45 AM EDT Respiratory Rate - - Oxygen Saturation - - Inhaled Oxygen Concentration - - Weight 101 kg (223 lb) 06/04/2023 10:45 AM EDT Height 160 cm (5' 3 ) 06/04/2023 10:45 AM EDT Body Mass Index 39.5 06/04/2023 10:45 AM EDT Plan of Treatment Health Maintenance Due Date Last Done Comments CT Colonography 1961 Colonoscopy 1961 Colorectal Cancer Screening 1961 FIT-DNA 1961 FIT 1961 FOBT 1961 Sigmoidoscopy 1961 Pap Smear 1982 Cervical Cancer Screening 11/06/1991 HPV/Cotest 11/06/1991 Mammogram 2001 Influenza Vaccine (#1) 2024 Insurance Care Teams Crisis Intervention Specialist Relationship Specialty Start Date End Date Merissa Mayfield MD PCP - General Family Medicine 05/12/23
--- OUTSIDE RECORDS SUMMARY | 2024-11-26 12:15 | XMS_ITS | Encounter Summary ---
Author Organization [facility] Address [address] [place] [address] Care Team Providers Care Reserve Operator Name Role Phone Merissa Mayfield MD Primary Care Provider Encounter Details Date Type Department Care Team (Late st Contact Info) Description 05/29/2023 Clinisync Result Encounter [facility] External Department Unsolicited Dhruv Cuellar, DO [address] [place] [address] Social History Tobacco Use Types Packs/Day Years [...] as of this encounter Plan of Treatment Not on file documented as of this encounter Procedures Procedure Name Priority Date/Time Associated Diagnosis Comments BD BONE DENSITY DEXA 05/29/2023 1:26 PM EST documented in this encounter Results * BD BONE DENSITY DEXA (05/29/2023 1:26 PM EST) Anatomical Region Laterality Modality Other 05/29/2023 1:26 PM EST Narrative 05/30/2023 10:24 AM EST Exam Date/Time: 05/29/2023 13:47 EST Reason for [...] pharmacologic treatment in postmenopausal women and men e 50 years of age who have the following: Primary fracture prevention: % T-score d 2.5 at the femoral neck, total hip, lumbar spine, 33% radius (some uncertainty with existing data) by DXA. % Low bone mass (osteopenia: T-score between 1.0 and 2.5) at the Report femoral neck or total hip by DXA with a 10-year hip fracture risk e 3% or a 10-year major osteoporosis-related fracture risk e 20% (i.e., clinical vertebral, hip, forearm, or proximal humerus) based on the [place]-adapted FRAX model. Secondary fracture prevention: % Fracture of the hip or vertebra regardless of BMD [4, 5]. % Fracture of proximal humerus, pelvis, or distal forearm in persons with low bone mass (osteopenia: T-score between 1.0 and 2.5). The decision to treat should be individualized in persons with a fracture of the proximal humerus, pelvis, or distal forearm who do not have osteopenia or low BMD [12, 13]. Ordering Provider: Dhruv Cuellar FINAL REPORT Dictated: 05/30/2023 10:21 am Anam Ruff MD, V. Signed (Electronic Signature): 05/30/2023 10:21 am Signed by: Anam Ruff MD, V. Transcribed by: EUSEBIA Technologist: SENIA Procedure Note Radiology, Radiologist, - 05/30/2023 Exam Date/Time: 05/29/2023 13:47 EST Reason for Exam: M58.89 Other specified disorders of bone density and structure, multiplesites Report IMPRESSION: The bone density measurements indicate OSTEOPENIA and places the patientat a mild to moderate increased risk for fracture. There may be a future risk ofdeveloping osteoporosis. Recommend follow-up exam in one year, sooner if clinicallynecessary. CLINICAL HISTORY: bone density evaluation COMPARISON: NONE. [...] World Health Organization definition of osteoporosis and osteopeniafor women: Normal = T score at or above -1.0 SD Osteopenia = T score between -1.0 and -2.5 SD Osteoporosis = T score at or below -2.5 SD Treatment recommendations per The Bone Health and Osteoporosis Foundation(BHOF): Consider initiating pharmacologic treatment in postmenopausal women andmen e 50 years of age who have the following: Primary fracture prevention: % T-score d 2.5 at the femoral neck, total hip, lumbar spine, 33% radius (some uncertainty with existing data) by DXA. % Low bone mass (osteopenia: T-score between 1.0 and 2.5) at the Report femoral neck or total hip by DXA with a 10-year hip fracture risk e 3% ora 10-year major osteoporosis-related fracture risk e 20% (i.e., clinical vertebral, hip, forearm, or proximal humerus) based on the [place]-adaptedFRAX model. Secondary fracture prevention: % Fracture of the hip or vertebra regardless of BMD [4, 5]. % Fracture of proximal humerus, pelvis, or distal forearm in persons withlow bone mass (osteopenia: T-score between 1.0 and 2.5). The decision to treat should be individualized in persons with a fracture of the proximalhumerus, pelvis, or distal forearm who do not have osteopenia or low BMD [12,13]. Ordering Provider: Dhruv Cuellar FINAL REPORT Dictated: 05/30/2023 10:21 am Anam Ruff MD, V. Signed (Electronic Signature): 05/30/2023 10:21 am Signed by: Anam Ruff MD, V. Transcribed by: EUSEBIA Technologist: SENIA Dhruv Cuellar DO [facility] Final Result documented in this encounter Visit Diagnoses Not on filedocumented in this encounter Care Teams Reserve Operator Relationship Specialty Start Date End Date Merissa Mayfield MD PCP - General Family Medicine 05/12/23 documented as of this encounter
--- OUTSIDE RECORDS SUMMARY | 2024-11-26 12:24 | XMS_ITS | CCD ---
Author Organization [facility] Care Team Providers Care Pit Hand Name Role Phone Anibal Chaudhary Primary Care [...] Kowalski Attending Provider Community, Outreach Attending Provider [phone] MD Anibal Chaudhary Primary Care Provider YANY AMEZCUA Attending Unavailable POCOSYANY Referring Unavailable POCOSYANY Referring Unavailable POCOS, YANY Jc Attending Unavailable MD Anibal Chaudhary Primary Care Provider NIRANJAN Wagoner Attending Provider [phone] Pocbernardo, Yany Jc Attending Unavailable Pocbernardo, Yany Jc Referring Unavailable ANIBAL CHAUDHARY Consulting Unavailable Pocbernardo, Yany Jc Admitting Unavailable Pocbernardo, Yany Jc Attending Unavailable Yany Amezcua Referring Unavailable MD ANIBAL CHAUDHARY Unavailable MD Anibal Chaudhary Primary Care Provider [phone] MD Anibal Chaudhary Attending Provider ObTOI conleyC Barby Fernandez Attending Provider AgnesVIPINP-C Gale Attending Provider [phone] Agnes, Gale Admitting Unavailable Agnes, Gale Attending [...] Unavailable NON STAFF Primary Care Provider Unavailabl e PATEL, ALAN Referring Unavailable JOSÉ MIGUEL MURRIETA Referring Unavailable AGUEDA ZUÑIGA Referring Unavailabl e ALAN PATEL Referring Unavailable DION VICTORIA Referring Unavailable AGNES, GALE Attending Unavailable AGUEDA ZUÑIGA Referring Unavailabl e DION VICTORIA Attending Unavailable RIAN BUTTS Referring Unavailable AGUEDA ZUÑIGA Referring Unavailabl e MANSI BUTTS Referring Unavailable AGUEDA ZUÑIGA Referring Unavailabl e DION VICTORIA Referring Unavailable RHONDA BARNES Referring Unavailable AGUEDA ZUÑIGA Referring Unavailabl e AGUEDA ZUÑIGA Referring Unavailabl e ALAN PATEL Referring Unavailable DAYA JOHNSON Attending Unavailable ALAN PATEL Referring Unavailable AGUEDA ZUÑIGA Referring Unavailabl e AGUEDA ZUÑIGA Referring Unavailabl e HAFSA, SAMAR Referring Unavailable KARON ADAMS Attending Unavailable DARRYL PEDRAZA Attending Unavailable KENDALL, DARRYL Attending Unavailable BRYANKARON Attending Unavailable ELTAHAWY, IKE Attending Unavailable ALGHOTHANI, MOHAMAD Referring Unavailable MARCELLO WAGNER Referring Unavailable CAMERON, RHONDA Referring Unavailable CAMERON, RHONDA Referring Unavailable KULAKODUSTY, AGUEDA Miramontes Referring Unavailabl e KULAKOWSKI, AGUEDA Miramontes Referring Unavailabl e JULIEN, Referring Unavailable JULIEN, Referring Unavailable JULIEN, Referring Unavailable KULAKOWSKI, AGUEDA Miramontes Referring Unavailabl e PATEL, ALAN Referring Unavailable JULIEN, Referring Unavailable JULIEN, Referring Unavailable CAMILO, YASH Referring Unavailable JULIEN, Referring Unavailable PATEL, ALAN Referring Unavailable PATEL, ALAN Referring Unavailable ELTAHAWY, EHAB Referring Unavailable ZENZ, KENDELL Referring Unavailable ZENZ, KENDELL Referring Unavailable KULAKOWSKI, AGUEDA Miramontes Referring Unavailabl e MARCELLO WAGNER Attending Unavailable BERNARD, MARCELLO Admitting Unavailable PATEL, ALAN Attending Unavailable PATEL, ALAN Admitting Unavailable MUNIR, HANI Attending Unavailable HORANI, EMILIE Admitting Unavailable HORANI, EMILIE Referring Unavailable Allergies Allergy Classification Reported Allergen(s) Allergy Type Date of Onset Reaction(s) Facility Unclassified (1 source) Allergy to substance [facility] (13 sources) Codeine Drug Allergy Unknown [employer] Other (20 sources) Metoclopramide Drug Allergy 05-08-19 24 Unknown, [facility] (13 sources) Sulfamethoxazole / Trimethoprim Drug Allergy Unknown [employer] Other (13 sources) Sulfonamides (Antibiotic) Drug allergy rash [employer] [facility] [employer] Other (12 sources) Codeine; Translations: [CODEINE] Drug Allergy 04-06-[address] [facility] (1 source) Iothalamate Drug Allergy 04-06-19 14 [facility] (1 source) Morphine Drug Allergy 04-12-19 14 [facility] (1 source) Sulfonamides (Antibiotic) Drug allergy (disorder) 04-06-19 14 [facility] (5 sources) Codeine Drug Allergy 02-25-20 14 Unknown [employer] Other (14 sources) Sulfonamides (Antibiotic); Translations: [Sulfa (Sulfonamide Antibiotics)] Allergy to substance 03-11-20 14 Hives, Hives, rash [facility] (11 sources) Sulfamethoxazole; Translations: [sulfamethoxazole] Drug Allergy 05-08-19 24 [facility] (11 sources) Trimethoprim; Translations: [trimethoprim] Drug Allergy 05-08-19 24 [facility] (1 source) Codeine Drug Allergy 10-27-19 [facility] (1 source) Metoclopramide Drug Allergy 10-27-19 [facility] (1 source) Metoclopramide; Translations: [METOCLOPRAMIDE HCL] Drug Allergy 03-11-20 14 [facility] Rep[facility] Medications Current Medications Medication Drug [...] Start: 10-06-2023 take 1 capsule by mo [facility] every week Cholecalciferol (Vitamin D3) Active 0 [...] 05-20-2018 take 150 mg by mouth once yloanda y Lamotrigine Active 150 MG PO Daily [...] tablets by mouth four times daily Pyridostigmine Lamar 60 mg tablet Active 120 MG PO Four times daily December 24, 2022 12:00am Start: 12-24-2022 End: 05-08-2023 take 2 tablets by mouth twice daily Pyridostigmine Lamar 60 mg Tablet Discontinued 120 MG PO Twice daily 0 December 24, 2022 12:00am May 08, 2023 4:09pm Start: 12-24-2022 take 120 mg by mouth four times daily Pyridostigmine Lamar Active 120 MG PO Four times daily December 24, 2022 12:00am Start: 12-24-2022 End: 12-24-2022 Pyridostigmine Lamar 180 m g Tablet Extended Release Discontinued 120 MG PO Daily December 24, 2022 12:00am December 24, 2022 8:13am Start: 12-24-2022 End: 12-24-2022 take 120 mg by mouth once daily Pyridostigmine Lamar Discontinued 120 MG PO Daily December 24, 2022 12:00am December 24, 2022 8:13am Start: 12-24-2022 End: 05-08-2023 take 120 mg by mouth twice daily Pyridostigmine Lamar Discontinued 120 MG PO Twice daily December 24, 2022 12:00am May 08, 2023 4:09pm take 1 tablet by veronica th every four hours Pyridostigmine Lamar 60 MG 1 tablet Orally every 4 hrs Active rivaroxaban 20 mg oral tablet (20 sources) Factor Xa Inhibitor Start: 10-22-2023 take 1 tablet by mouth once daily Rivaroxaban (Xarelto) 20 mg tablet Active 0 .ROUTE .COMPLEX 90 October 21st, 2024 8:35am TAKE 1 TABLET BY MOUTH ONCE [...] (1 source) Angiotensin 2 Receptor Na Start: take 0.5 tablet by mouth twice daily [...] Start; Refills: 1; Qty: 90 Tablet; Provider: Chaudhary Anibal E take 1 tablet by veronica th every [...] 05-20-2018 take 300 mg by mouth once yolanad y Venlafaxine Active 300 MG PO Daily [...] 6 hrs for 30 days Apr, Active [id number] 200 actuat albuterol 0.09 mg/actuat metered dose [...] Start: 09-12-2022 take 1 capsule by mo [facility] every twenty-four hours Temazepam 15 MG 1 [...] 4:10pm Start: 09-13-2022 [facility] as [facility] traMADol [...] Chronic Coronary atherosclerosis and other heart disease (9 sources) Coronary arteriosclerosis; Translations: [Atherosclerotic heart disease of [place] coronary artery without angina pectoris] Onset: 4 01-29-2024 Chronic Coronary atherosclerosis and other heart disease (2 sources) Presence of aortocoronary bypass graft; Translations: [Presence of aortocoronary bypass graft] Onset: 5 Episodic Diabetes mellitus with complications (16 sources) Hyperglycemia [...] antibody titer; Translations: [RAISED ANTIBODY TITER] Onset: Episodic Malaise and fatigue (2 sources) Fatigue; [...] hand] Chronic Other aftercare (1 source) Other terminal worker (current) drug therapy; Translations: [OTH BALLISTICS EXPERT FORENSIC CURRENT DRUG THERAPY] Onset: 3 Episodic Other [...] sources) Pleuritic pain; Translations: [Pleurodynia] Episodic Other non-traumatic joint disorders (6 sources) [...] sources) Localized edema; Translations: [Edema] 08-19-2023 Episodic Residual codes; unclassified (2 sources) Tobacco use; Translations: [Tobacco use] Onset: 5 Episodic Rheumatoid arthritis and related disease (20 [...] Onset: 12-24-2022 Episodic Other lower respiratory disease (3 sources) Other forms of dyspnea; Translations: [Other forms of dyspnea] Onset: 12-04-2023 Episodic Other non-traumatic joint disorders (6 sources) [...] Test Name Value Interpretation Reference Range Facility [id number] [facility] ANESon 07-21-2024 ANES [facility] HPon 07-21-2024 HP [facility] NURSNOTEon 07-21-2024 NURSNOTE Patient ambulated to bathroom. Gait steady. Right groin cath site without bleeding or hematoma [facility] NURSNOTE Dr. Wagner assessed patient and site. Told her she could be discharged home at 6:30pm [facility] NURSNOTE [facility] Orders Onlyon 07-13-2024 Orders Only [facility] 36on 07-07-2024 36 Per HAILE [place] P - patient needs scheduled for heart cath with Dr. Johnson s/p abnormal stress test performed on 07/01/2024. Patient made aware. Orders entered. [facility] Orders Onlyon 07-06-2024 Orders Only [facility] 36on 06-24-2024 36 Spoke to patient and advised her that Francie Pedraza would like her to increase her spirolactone to 12.5 and have a BMP done in 1 month. Patient verbalized understanding. [facility] 06-15-2024 36 Darryl Pedraza CNP P Cardiology Clinical Support Pool Her labs show a slight bump in her kidney function. Would like her to go back to spironolactone 12.5mg daily. Follow up BMP in 1 month. Thank you Left message for patient to call back. [facility] 36on 06-09-2024 36 Okay, lets order for a lexiscan stress test please. Please remind her to get follow up BMP since we increased her aldactone. Thank you [facility] 37on 05-26-2024 37 *We are increasing spironolactone to 25mg daily *Have lab work done around 06/02/2024 to check kidney function with the increase in spironolactone. *We will call you in 1-2 weeks to see how you are feeling. *Follow-up after event monitor comes off. [facility] 37on 05-20-2024 37 [facility] Estimated glomerular filtrat ion rate (GFR) non- Americanon 05-20-2024 GFR/1.73 sq M.predicted among non-blacks MDRD (S/P/Bld) [Vol rate/Area] Estimated glomerular filtration rate (GFR) non- Low >=60 mL/min/1.73 m 2 [facility] - Chemistry and C hemistry - challengeon 05-20-2024 Calcium [Mass/Vol] 9.4 mg/dL 8.5-10.1 [facility] Chloride [Moles/Vol] 102 mmol/L 98-107 [facility] CO2 [Moles/Vol] 30.4 mmol/L 21.0-32.0 [facility] Creatinine [Mass/Vol] 1.12 mg/dL High 0.55-1.[address] [facility] GFR/1.73 sq M.predicted MDRD (S/P/Bld) [Vol rate/Area] 60 mL/min/{1.73_m2} >=60 mL/min/1.73 m 2 [facility] Glucose [Mass/Vol] 158 mg/dL High 74-106 [facility] Potassium [Moles/Vol] 3.8 mmol/L 3.5-5.[address] [facility] Sodium [Moles/Vol] 140 mmol/L 136-145 [facility] Urea nitrogen [Mass/Vol] 22.0 mg/dL High 7.0-18.0 [facility] Urea nitrogen/Creatinine [Mass ratio] 19.6 mg/mg [facility] Serum or plasma anion gap de terminationon 05-20-2024 Anion gap [Moles/Vol] Serum or plasma an ion gap determination [facility] Telephoneon 05-18-2024 Telephone Normal [facility] Documentationon 05-17-2024 Documentation Normal [facility] Telephoneon 05-17-2024 Telephone Normal [facility] 36on 05-15-2024 36 Normal [facility] Telephoneon 05-15-2024 Telephone Normal [facility] 30on 05-14-2024 30 Normal [facility] 30 [facility] BASIC METABOLIC PANELon 04-25 Anion gap [Moles/Vol] 14 mmol/L Normal 7-20 [facility] Comment on above: Performed By: #### L [id number] ####[facility] ([facility])[address] [place] [address] Calcium [Mass/Vol] 9.5 mg/dL Normal 8.6-10.3 [facility] Comment on above: Performed By: #### L [id number] ####[facility] ([facility])[address] [place] [address] Chloride [Moles/Vol] 104 mmol/L Normal 98-107 [facility] Comment on above: Performed By: #### L [id number] ####[facility] ([facility])[address] [place] [address] CO2 [Moles/Vol] 23 mmol/L Normal 21-31 [facility] Comment on above: Performed By: #### L [id number] ####[facility] ([facility]ER)[address] [place] [address] Creatinine [Mass/Vol] 1.04 mg/dL Normal 0.60-1.20 [facility] Comment on above: Performed By: #### L [id number] ####[facility] ([facility])[address] [place] [address] GLOMERULAR FILTRATION RATE ML/MIN/1.73 SQ M.PREDICTED 60.8 mL/min/1.73m*2 Normal >60.0 [facility] Comment on above: Result Comment: [facility]???s estimated glomerular filtration rate (eGFR) will [...] of individuals. Performed By: #### L [id number] ####[facility] ([facility])[address] [place] [address] Glucose [Mass/Vol] 128 mg/dL High 70-100 [facility] Comment on above: Performed By: #### L [id number] ####[facility] ([facility])[address] [place] [address] Potassium [Moles/Vol] 4.5 mmol/L Normal 3.5-5.1 [facility] Comment on above: Performed By: #### L [id number] ####[facility] ([facility])[address] [place] [address] Sodium [Moles/Vol] 136 mmol/L Normal 136-145 [facility] Comment on above: Performed By: #### L [id number] ####[facility] ([facility] [place] [address] Urea nitrogen [Mass/Vol] 23 mg/dL Normal 7-25 [facility] Comment on above: Performed By: #### L [id number] ####[facility] ([facility])[address] [place] [address] UREA NITROGEN/CREATININE (MASS RATIO) IN SER/PLAS 22.1 Normal [facility] Comment on above: Performed By: #### L [id number] ####[facility] ([facility])[address] [place] [address] CBCon 05-14-2024 Erythrocyte distribution width (RBC) [Ratio] 14.3 % Normal 11.5-15.0 [facility] Comment on above: Performed By: #### L [id number] ####[facility] ([facility])[address] [place] [address] ERYTHROCYTE MEAN CORPUSCULAR HEMOGLOBIN CONCENTRATION (G/DL) BY AUTOMATED 31.9 g/dL Low 32.0-35.0 [facility] Comment on above: Performed By: #### L [id number] ####[facility] ([facility])[address] [place] [address] Hematocrit (Bld) [Volume fraction] 45.8 % Normal 36.0-48.0 [facility] Comment on above: Performed By: #### L [id number] ####[facility] ([facility])[address] [place] [address] Hemoglobin (Bld) [Mass/Vol] 14.6 g/dL Normal 12.0-15.0 [facility] Comment on above: Performed By: #### L [id number] ####[facility] ([facility])[address] [address] MCH (RBC) [Entitic mass] 29.1 pg Normal 27.0-33.0 [facility] Comment on above: Performed By: #### L [id number] ####[facility] ([facility])[address] [address] MCV (RBC) [Entitic vol] 91.4 fL Normal 82.0-98.0 [facility] Comment on above: Performed By: #### L [id number] ####[facility] ([facility])[address] [address] PLATELETS (10*3/UL) IN BLOOD AUTOMATED COUNT 256 10*3/uL Normal 150-400 [facility] Comment on above: Performed By: #### L [id number] ####[facility] ([facility])[address] [address] RBC (Bld) [#/Vol] 5.01 10*6/uL High 3.80-5.00 [facility] Comment on above: Performed By: #### L [id number] ####[facility] ([facility])[address] [address] WBC (Bld) [#/Vol] 6.81 10*3/uL Normal 4.00-10.60 [facility] Comment on above: Performed By: #### L [id number] ####[facility] ([facility])[address] [place] [place] [address] DSon 05-14-2024 DS [facility] POCT GLUCOSE METER UNSOLICIT ED RESULTSon 05-14-2024 Glucose [Mass/Vol] 206 mg/dL High 70-105 [facility] Comment on above: Order Comment: Waive d Testing in the ED is performed under the ED CLIA certificate #[id number]. Result Comment: dcun dic Performed By: #### L [id number] ####[facility] ([facility])[address] [place] [place] [address] Glucose [Mass/Vol] 146 mg/dL High 70-105 [facility] Comment on above: Order Comment: Waive d Testing in the ED is performed under the ED CLIA certificate #[id number]. Result Comment: [email or web address] Performed By: #### L [id number] ####[facility] ([facility])[address] [place] [place] [address] 30on 05-13-2024 30 [facility] 30 [facility] 30 [facility] BASIC METABOLIC PANELon 2 Anion gap [Moles/Vol] 13 mmol/L Normal 7-20 [facility] Comment on above: Performed By: #### L [id number] ####[facility] ([facility])[address] [place] [place] [address] Calcium [Mass/Vol] 9.1 mg/dL Normal 8.6-10.3 [facility] Comment on above: Performed By: #### L [id number] ####[facility] ([facility])[address] [place] [address] Chloride [Moles/Vol] 99 mmol/L Normal 98-107 [facility] Comment on above: Performed By: #### L [id number] ####[facility] ([facility])[address] [place], [place] [address] CO2 [Moles/Vol] 29 mmol/L Normal 21-31 [facility] Comment on above: Performed By: #### L [id number] ####[facility] ([facility])[address] [place] [address] Creatinine [Mass/Vol] 1.29 mg/dL High 0.60-1.20 [facility] Comment on above: Performed By: #### L [id number] ####[facility] ([facility])[address] [place], [place] [address] GLOMERULAR FILTRATION RATE ML/MIN/1.73 SQ M.PREDICTED 46.9 mL/min/1.73m*2 Low >60.0 [facility] Comment on above: Result Comment: [facility]???s estimated glomerular filtration rate (eGFR) will [...] of individuals. Performed By: #### L [id number] ####[facility] ([facility])[address] [place] [address] Glucose [Mass/Vol] 135 mg/dL High 70-100 [facility] Comment on above: Performed By: #### L [id number] ####[facility] ([facility])[address] [place] [address] Potassium [Moles/Vol] 3.5 mmol/L Normal 3.5-5.1 [facility] Comment on above: Performed By: #### L [id number] ####[facility] ([facility])[address] [place] [address] Sodium [Moles/Vol] 137 mmol/L Normal 136-145 [facility] Comment on above: Performed By: #### L [id number] ####[facility] ([facility])[address] [place] [address] Urea nitrogen [Mass/Vol] 19 mg/dL Normal 7-25 [facility] Comment on above: Performed By: #### L [id number] ####[facility] ([facility])[address] [place] [address] UREA NITROGEN/CREATININE (MASS RATIO) IN SER/PLAS 14.7 Normal [facility] Comment on above: Performed By: #### L [id number] ####[facility] ([facility])[address] [place] [address] POCT GLUCOSE METER UNSOLICIT ED RESULTSon 05-13-2024 Glucose [Mass/Vol] 161 mg/dL High 70-105 [facility] Comment on above: Order Comment: Waive d Testing in the ED is performed under the ED CLIA certificate #[id number]. Result Comment: wcha se Performed By: #### L [id number] ####[facility] ([facility])[address] [place] [address] Glucose [Mass/Vol] 149 mg/dL High 70-105 [facility] Comment on above: Order Comment: Waive d Testing in the ED is performed under the ED CLIA certificate #[id number]. Result Comment: [email or web address] [email or web address] Performed By: #### L [id number] ####[facility] ([facility])[address] [place] [address] Glucose [Mass/Vol] 183 mg/dL High 70-105 [facility] Comment on above: Order Comment: Waive d Testing in the ED is performed under the ED CLIA certificate #[id number]. Result Comment: cfet [email or web address] Performed By: #### L [id number] ####[facility] ([facility])[address] [place] [place] [address] Glucose [Mass/Vol] 141 mg/dL High 70-105 [facility] Comment on above: Order Comment: Waive d Testing in the ED is performed under the ED CLIA certificate #[id number]. Result Comment: cfet [email or web address] Performed By: #### L [id number] ####[facility] ([facility])[address] [place] [place] [address] 30on 05-12-2024 30 Normal [facility] 30 Normal [facility] 30 Normal [facility] 30 Normal [facility] APTTon 05-12-2024 ACTIVATED PARTIAL THROMBOPLASTIN TIME IN PPP BY COAGULATION ASSAY 49.3 Seconds High 25.0-35.0 [facility] Comment on above: Order Comment: Check aPTT every 6 hours while on heparin infusion, or per protocol. Result Comment: Clin ical significance of the APTT is questionable in the presence of heparin. Performed By: #### L [id number] ####[facility] ([facility])[address] [place] [place] [address] CBCon 05-12-2024 Erythrocyte distribution width (RBC) [Ratio] 13.9 % Normal 11.5-15.0 [facility] Comment on above: Performed By: #### L [id number] ####[facility] ([facility])[address] [place] [address] ERYTHROCYTE MEAN CORPUSCULAR HEMOGLOBIN CONCENTRATION (G/DL) BY AUTOMATED 32.5 g/dL Normal 32.0-35.0 [facility] Comment on above: Performed By: #### L [id number] ####[facility] ([facility])[address] [place] [address] Hematocrit (Bld) [Volume fraction] 41.8 % Normal 36.0-48.0 [facility] Comment on above: Performed By: #### L [id number] ####[facility] ([facility])[address] [place] [place] [address] Hemoglobin (Bld) [Mass/Vol] 13.6 g/dL Normal 12.0-15.0 [facility] Comment on above: Performed By: #### L [id number] ####[facility] ([facility])[address] [address] MCH (RBC) [Entitic mass] 28.9 pg Normal 27.0-33.0 [facility] Comment on above: Performed By: #### L [id number] ####[facility] ([facility])[address] [address] MCV (RBC) [Entitic vol] 88.9 fL Normal 82.0-98.0 [facility] Comment on above: Performed By: #### L [id number] ####[facility] ([facility])[address] [place] [place] [address] PLATELETS (10*3/UL) IN BLOOD AUTOMATED COUNT 254 10*3/uL Normal 150-400 [facility] Comment on above: Performed By: #### L [id number] ####[facility] ([facility])[address] [place] [place] [address] RBC (Bld) [#/Vol] 4.70 10*6/uL Normal 3.80-5.00 [facility] Comment on above: Performed By: #### L [id number] ####[facility] ([facility])[address] [place] [place] [address] WBC (Bld) [#/Vol] 6.18 10*3/uL Normal 4.00-10.60 [facility] Comment on above: Performed By: #### L [id number] ####[facility] ([facility])[address] [place] [place] [address] CONSULTon 05-12-2024 CONSULT Normal [facility] CONSULT Normal [facility] POCT GLUCOSE METER UNSOLICIT ED RESULTSon 05-12-2024 Glucose [Mass/Vol] 165 mg/dL High 70-105 [facility] Comment on above: Order Comment: Waive d Testing in the ED is performed under the ED CLIA certificate #[id number]. Result Comment: wcha se Performed By: #### L [id number] ####[facility] ([facility])[address] [place] [address] Glucose [Mass/Vol] 183 mg/dL High 70-105 [facility] Comment on above: Order Comment: Waive d Testing in the ED is performed under the ED CLIA certificate #[id number]. Result Comment: [email or web address] [email or web address] Performed By: #### L [id number] ####[facility] ([facility])[address] [facility] [place] [address] Glucose [Mass/Vol] 152 mg/dL High 70-105 [facility] Comment on above: Order Comment: Waive d Testing in the ED is performed under the ED CLIA certificate #[id number]. Result Comment: bflo od Performed By: #### L [id number] ####[facility] ([facility])[address] [place] [address] Glucose [Mass/Vol] 189 mg/dL High 70-105 [facility] Comment on above: Order Comment: Waive d Testing in the ED is performed under the ED CLIA certificate #[id number]. Result Comment: bflo od Performed By: #### L [id number] ####[facility] ([facility])[address] [facility] [place] [address] RESPIRATORY VIRUS PCR PANELo n 05-12-2024 ADENOVIRUS DETECTION BY PCR Not detected Normal Not Detected [facility] Comment on above: Order Comment: Testi ng methodology is a multiplexed nucleic acid test intended for the simultaneous qualitative detection and differentiation of nucleic acids from multiple viral and bacterial respiratory organisms in nasopharyngeal swabs (SPANISH INSTRUCTOR). Performed By: #### L [id number] ####[facility] ([facility])[address] [place] [address] B. PARAPERTUSSIS DNA Not detected Normal Not Detected [facility] Comment on above: Order Comment: Testi ng methodology is a multiplexed nucleic acid test intended for the simultaneous qualitative detection and differentiation of nucleic acids from multiple viral and bacterial respiratory organisms in nasopharyngeal swabs (SPANISH INSTRUCTOR). Performed By: #### L [id number] ####[facility] ([facility])[address] [place] [address] BORDETELLA PERTUSSIS DNA PRESENCE IN UNSPECIFIED SPECIMEN BY HI* Not detected Normal Not Detected [facility] Comment on above: Order Comment: Testi ng methodology is a multiplexed nucleic acid test intended for the simultaneous qualitative detection and differentiation of nucleic acids from multiple viral and bacterial respiratory organisms in nasopharyngeal swabs (SPANISH INSTRUCTOR). Performed By: #### L [id number] ####[facility] ([facility])[address] [place] [address] CHLAMYDOPHILA PNEUMONIAE Not detected Normal Not Detected [facility] Comment on above: Order Comment: Testi ng methodology is a multiplexed nucleic acid test intended for the simultaneous qualitative detection and differentiation of nucleic acids from multiple viral and bacterial respiratory organisms in nasopharyngeal swabs (SPANISH INSTRUCTOR). Performed By: #### L [id number] ####[facility] ([facility])[address] [place] [address] CORONAVIRUS 229E Not detected Normal Not Detected [facility] Comment on above: Order Comment: Testi ng methodology is a multiplexed nucleic acid test intended for the simultaneous qualitative detection and differentiation of nucleic acids from multiple viral and bacterial respiratory organisms in nasopharyngeal swabs (SPANISH INSTRUCTOR). Performed By: #### L [id number] ####[facility] ([facility])[address] [place] [address] CORONAVIRUS HKU1 Not detected Normal Not Detected [facility] Comment on above: Order Comment: Testi ng methodology is a multiplexed nucleic acid test intended for the simultaneous qualitative detection and differentiation of nucleic acids from multiple viral and bacterial respiratory organisms in nasopharyngeal swabs (SPANISH INSTRUCTOR). Performed By: #### L [id number] ####[facility] ([facility])[address] [place] [address] CORONAVIRUS [id number] Not detected Normal Not Detected [facility] Comment on above: Order Comment: Testi ng methodology is a multiplexed nucleic acid test intended for the simultaneous qualitative detection and differentiation of nucleic acids from multiple viral and bacterial respiratory organisms in nasopharyngeal swabs (SPANISH INSTRUCTOR). Performed By: #### L [id number] ####[facility] ([facility])[address] [place] [address] CORONAVIRUS OC43 Not detected Normal Not Detected [facility] Comment on above: Order Comment: Testi ng methodology is a multiplexed nucleic acid test intended for the simultaneous qualitative detection and differentiation of nucleic acids from multiple viral and bacterial respiratory organisms in nasopharyngeal swabs (SPANISH INSTRUCTOR). Performed By: #### L [id number] ####[facility] ([facility])[address] [place] [address] HUMAN METAPNEUMOVIRUS Not detected Normal Not Detected [facility] Comment on above: Order Comment: Testi ng methodology is a multiplexed nucleic acid test intended for the simultaneous qualitative detection and differentiation of nucleic acids from multiple viral and bacterial respiratory organisms in nasopharyngeal swabs (SPANISH INSTRUCTOR). Performed By: #### L [id number] ####[facility] ([facility])[address] [facility] [place] [address] HUMAN RHINOVIRUS+ENTEROVIRUS Not detected Normal Not Detected [facility] Comment on above: Order Comment: Testi ng methodology is a multiplexed nucleic acid test intended for the simultaneous qualitative detection and differentiation of nucleic acids from multiple viral and bacterial respiratory organisms in nasopharyngeal swabs (SPANISH INSTRUCTOR). Performed By: #### L [id number] ####[facility] ([facility])[address] [facility] [place] [address] INFLUENZA A Not detected Normal Not Detected [facility] Comment on above: Order Comment: Testi ng methodology is a multiplexed nucleic acid test intended for the simultaneous qualitative detection and differentiation of nucleic acids from multiple viral and bacterial respiratory organisms in nasopharyngeal swabs (SPANISH INSTRUCTOR). Performed By: #### L [id number] ####[facility] ([facility])[address] [place] [address] INFLUENZA B Not detected Normal Not Detected [facility] Comment on above: Order Comment: Testi ng methodology is a multiplexed nucleic acid test intended for the simultaneous qualitative detection and differentiation of nucleic acids from multiple viral and bacterial respiratory organisms in nasopharyngeal swabs (SPANISH INSTRUCTOR). Performed By: #### L [id number] ####[facility] ([facility])[address] [place] [address] MYCOPLASMA PNEUMONIAE Not detected Normal Not Detected [facility] Comment on above: Order Comment: Testi ng methodology is a multiplexed nucleic acid test intended for the simultaneous qualitative detection and differentiation of nucleic acids from multiple viral and bacterial respiratory organisms in nasopharyngeal swabs (SPANISH INSTRUCTOR). Performed By: #### L [id number] ####[facility] ([facility])[address] [place] [address] PARAINFLUENZA 1 Not detected Normal Not Detected [facility] Comment on above: Order Comment: Testi ng methodology is a multiplexed nucleic acid test intended for the simultaneous qualitative detection and differentiation of nucleic acids from multiple viral and bacterial respiratory organisms in nasopharyngeal swabs (SPANISH INSTRUCTOR). Performed By: #### L [id number] ####[facility] ([facility])[address] [place] [address] PARAINFLUENZA 2 Not detected Normal Not Detected [facility] Comment on above: Order Comment: Testi ng methodology is a multiplexed nucleic acid test intended for the simultaneous qualitative detection and differentiation of nucleic acids from multiple viral and bacterial respiratory organisms in nasopharyngeal swabs (SPANISH INSTRUCTOR). Performed By: #### L [id number] ####[facility] ([facility])[address] [place] [address] PARAINFLUENZA 3 Not detected Normal Not Detected [facility] Comment on above: Order Comment: Testi ng methodology is a multiplexed nucleic acid test intended for the simultaneous qualitative detection and differentiation of nucleic acids from multiple viral and bacterial respiratory organisms in nasopharyngeal swabs (SPANISH INSTRUCTOR). Performed By: #### L [id number] ####[facility] ([facility])[address] [place] [address] PARAINFLUENZA 4 Not detected Normal Not Detected [facility] Comment on above: Order Comment: Testi ng methodology is a multiplexed nucleic acid test intended for the simultaneous qualitative detection and differentiation of nucleic acids from multiple viral and bacterial respiratory organisms in nasopharyngeal swabs (SPANISH INSTRUCTOR). Performed By: #### L [id number] ####[facility] ([facility])[address] [place] [address] RESP SYNCYTIAL VIRUS Not detected Normal Not Detected [facility] Comment on above: Order Comment: Testi ng methodology is a multiplexed nucleic acid test intended for the simultaneous qualitative detection and differentiation of nucleic acids from multiple viral and bacterial respiratory organisms in nasopharyngeal swabs (SPANISH INSTRUCTOR). Performed By: #### L [id number] ####[facility] ([facility])[address] [place] [address] SARS-CoV-2 (COVID-19) RNA CITLALY+probe Ql (Unsp spec) Not detected Normal Not Detected [facility] Comment on above: Order Comment: Testi rogelio methodology is a multiplexed nucleic acid test intended for the simultaneous qualitative detection and differentiation of nucleic acids from multiple viral and bacterial respiratory organisms in nasopharyngeal swabs (SPANISH INSTRUCTOR). Performed By: #### L [id number] ####[facility] ([facility])[address] [place] [address] TROPONIN Ion 05-12-2024 Troponin I.cardiac [Mass/Vol] 0.03 ng/mL Normal 0.00-0.04 [facility] Comment on above: Performed By: #### L [id number] ####[facility] ([facility])[address] [facility] [place] [address] Troponin I.cardiac [Mass/Vol] 0.04 ng/mL Normal 0.00-0.04 [facility] Comment on above: Performed By: #### L [id number] ####[facility] ([facility])[address] [place] [address] URINALYSIS MICROSCOPIC WITH REFLEX CULTUREon 05-12-2024 RBC (#/HPF) IN URINE SEDIMENT 3-5 Abnormal None Seen, 0-2 [facility] Comment on above: Performed By: #### L [id number] ####[facility] ([facility])[address] [facility] [place] [address] SQUAMOUS EPITHELIAL CELLS (#/LPF) IN URINE SEDIMENT Moderate Abnormal None Seen, Occasional, Few [facility] Comment on above: Performed By: #### L [id number] ####[facility] ([facility])[address] [place] [address] WBC (LEUKOCYTE) (#/HPF) IN URINE SEDIMENT 6-10 Abnormal None Seen, 0-2 [facility] Comment on above: Performed By: #### L [id number] ####[facility] ([facility])[address] [place] [address] URINALYSIS WITH REFLEX CULTU REon 05-12-2024 BILIRUBIN, TOTAL PRESENCE IN URINE Negative Normal Negative [facility] Comment on above: Performed By: #### L [id number] ####[facility] ([facility])[address] [place] [address] Clarity (U) Clear Normal Clear [facility] Comment on above: Performed By: #### L [id number] ####[facility] ([facility])[address] [place] [address] Color (U) Light-Yellow Normal Colorless, Yellow, Light-Yello w [facility] Comment on above: Performed By: #### L [id number] ####[facility] ([facility])[address] [place] [address] GLUCOSE (MG/DL) IN URINE Normal Normal Normal [facility] Comment on above: Performed By: #### L [id number] ####[facility] ([facility])[address] [place] [address] HEMOGLOBIN PRESENCE IN URINE Negative Normal Negative [facility] Comment on above: Performed By: #### L [id number] ####[facility] ([facility])[address] [place] [address] Ketones Ql (U) Negative Normal Negative [facility] Comment on above: Performed By: #### L [id number] ####[facility] ([facility])[address] [place] [address] LEUKOCYTE ESTERASE PRESENCE IN URINE BY TEST STRIP Small Abnormal Negative [facility] Comment on above: Performed By: #### L [id number] ####[facility] ([facility])[address] [place] [address] NITRITE PRESENCE IN URINE Negative Normal Negative [facility] Comment on above: Performed By: #### L [id number] ####[facility] ([facility])[address] [place] [address] pH (U) 6.0 [pH] Normal 5.0-8.0 [facility] Comment on above: Performed By: #### L [id number] ####[facility] ([facility])[address] [place] [address] Protein (U) [Mass/Vol] Negative Normal Negative [facility] on above: Performed By: #### L [id number] ####[facility] ([facility])[address] [place] [address] Specific gravity (U) [Rel density] 1.015 Normal 1.010-1.030 [facility] Comment on above: Performed By: #### L [id number] ####[facility] ([facility])[address] [place] [address] UROBILINOGEN (MG/DL) IN URINE Normal Normal Normal [facility] Comment on above: Performed By: #### L [id number] ####[facility] ([facility])[address] [place] [address] APTTon 05-11-2024 ACTIVATED PARTIAL THROMBOPLASTIN TIME IN PPP BY COAGULATION ASSAY 27.4 Seconds Normal 25.0-35.0 [facility] Comment on above: Order Comment: Basel ine aPTT before initiating heparin infusion. Result Comment: Clin ical significance of the APTT is questionable in the presence of heparin. Performed By: #### L [id number] ####[facility] ([facility])[address] [place] [address] Activated partial thrombopla stin time (aPTT) in platelet poor plasma by coagulation aon 05-11-2024 aPTT Coag (PPP) [Time] Activated partial thromboplastin time (aPTT) in platelet poor plasma by coagulation a 22.3-36.2 [facility] B-TYPE NATRIURETIC PEPTIDEon 05-11-2024 Natriuretic peptide B (Bld) [Mass/Vol] 537 pg/mL High 0-100 [facility] Comment on above: Performed By: #### L [id number] ####[facility] ([facility])[address] [place] [address] Basophils Auto (Bld) [#/Vol] on 05-11-2024 Basophils (Bld) [#/Vol] Automated basophil count 0.0-0.1 [facility] Basophils/100 WBC Auto (Bld) on 05-11-2024 Basophils/100 WBC (Bld) Automated basophil % 0.2-2.0 [facility] CBC WITH AUTO DIFFERENTIALon 05-11-2024 Basophils (Bld) [#/Vol] 0.10 10*3/uL Normal 0.00-0.20 [facility] Comment on above: Performed By: #### L [id number] ####[facility] ([facility])[address] [place] [address] Basophils/100 WBC (Bld) 1.3 % High 0.0-1.0 [facility] Comment on above: Performed By: #### L [id number] ####[facility] ([facility])[address] [place] [address] Eosinophils (Bld) [#/Vol] 0.31 10*3/uL Normal 0.00-0.50 [facility] Comment on above: Performed By: #### L [id number] ####[facility] ([facility])[address] [place] [address] Eosinophils/100 WBC (Bld) 4.0 % Normal 0.0-6.0 [facility] Comment on above: Performed By: #### L [id number] ####[facility] ([facility])[address] [place] [address] Erythrocyte distribution width (RBC) [Ratio] 13.9 % Normal 11.5-15.0 [facility] Comment on above: Performed By: #### L [id number] ####[facility] ([facility])[address] [facility] [place] [address] ERYTHROCYTE MEAN CORPUSCULAR HEMOGLOBIN CONCENTRATION (G/DL) BY AUTOMATED 33.7 g/dL Normal 32.0-35.0 [facility] Comment on above: Performed By: #### L [id number] ####[facility] ([facility])[address] [place] [address] Hematocrit (Bld) [Volume fraction] 41.6 % Normal 36.0-48.0 [facility] Comment on above: Performed By: #### L [id number] ####[facility] ([facility])[address] [place] [place] [address] Hemoglobin (Bld) [Mass/Vol] 14.0 g/dL Normal 12.0-15.0 [facility] Comment on above: Performed By: #### L [id number] ####[facility] ([facility])[address] [place] [place] [address] Immature granulocytes (Bld) [#/Vol] 0.03 10*3/uL Normal 0.00-0.20 [facility] Comment on above: Performed By: #### L [id number] ####[facility] ([facility])[address] [place] [place] [address] Immature granulocytes/100 WBC (Bld) 0.4 % Normal 0.0-1.0 [facility] Comment on above: Performed By: #### L [id number] ####[facility] ([facility])[address] [place] [place] [address] Lymphocytes (Bld) [#/Vol] 2.25 10*3/uL Normal 1.20-4.00 [facility] Comment on above: Performed By: #### L [id number] ####[facility] ([facility])[address] [place] [place] [address] Lymphocytes/100 WBC (Bld) 29.3 % Normal 20.0-45.0 [facility] Comment on above: Performed By: #### L [id number] ####[facility] ([facility])[address] [place] [place] [address] MCH (RBC) [Entitic mass] 28.9 pg Normal 27.0-33.0 [facility] Comment on above: Performed By: #### L [id number] ####[facility] ([facility])[address] [place] [place] [address] MCV (RBC) [Entitic vol] 86.0 fL Normal 82.0-98.0 [facility] Comment on above: Performed By: #### L [id number] ####[facility] ([facility] [place] [address] Monocytes (Bld) [#/Vol] 0.50 10*3/uL Normal 0.10-1.00 [facility] Comment on above: Performed By: #### L [id number] ####[facility] ([facility])[address] [place] [address] Monocytes/100 WBC (Bld) 6.5 % Normal 5.0-12.0 [facility] Comment on above: Performed By: #### L [id number] ####[facility] ([facility])[address] [place] [address] Neutrophils (Bld) [#/Vol] 4.50 10*3/uL Normal 1.60-7.60 [facility] Comment on above: Performed By: #### L [id number] ####[facility] ([facility])[address] [place] [address] Neutrophils/100 WBC (Bld) 58.5 % Normal 40.0-72.0 [facility] Comment on above: Performed By: #### L [id number] ####[facility] ([facility])[address] [place] [address] NRBC (PER 100 WBCS) BY AUTOMATED COUNT 0.0 % Normal 0 [facility] Comment on above: Performed By: #### L [id number] ####[facility] ([facility])[address] [place] [address] PLATELETS (10*3/UL) IN BLOOD AUTOMATED COUNT 270 10*3/uL Normal 150-400 [facility] Comment on above: Performed By: #### L [id number] ####[facility] ([facility])[address] [place] [address] RBC (Bld) [#/Vol] 4.84 10*6/uL Normal 3.80-5.00 [facility] Comment on above: Performed By: #### L [id number] ####[facility] ([facility])[address] [place] [place], [place] [address] WBC (Bld) [#/Vol] 7.69 10*3/uL Normal 4.00-10.60 [facility] Comment on above: Performed By: #### L [id number] ####[facility] ([facility])[address] [place] [place] [address] COMPREHENSIVE METABOLIC PANE Kirit 05-11-2024 Albumin [Mass/Vol] 4.1 g/dL Normal 3.5-5.7 [facility] Comment on above: Performed By: #### L [id number] ####[facility] ([facility])[address] [place] [place] [address] ALP [Catalytic activity/Vol] 128 U/L High 34-104 [facility] Comment on above: Performed By: #### L [id number] ####[facility] ([facility])[address] [place] [address] ALT [Catalytic activity/Vol] 13 U/L Normal 7-52 [facility] Comment on above: Performed By: #### L [id number] ####[facility] ([facility])[address] [place] [place] [address] Anion gap [Moles/Vol] 13 mmol/L Normal 7-20 [facility] Comment on above: Performed By: #### L [id number] ####[facility] ([facility])[address] [place] [address] AST [Catalytic activity/Vol] 18 U/L Normal 13-39 [facility] Comment on above: Performed By: #### L [id number] ####[facility] ([facility])[address] [place] [address] Bilirubin [Mass/Vol] 0.4 mg/dL Normal 0.3-1.0 [facility] Comment on above: Performed By: #### L [id number] ####[facility] ([facility])[address] [place] [address] Calcium [Mass/Vol] 8.9 mg/dL Normal 8.6-10.3 [facility] Comment on above: Performed By: #### L [id number] ####[facility] ([facility])[address] [place] [address] Chloride [Moles/Vol] 98 mmol/L Normal 98-107 [facility] Comment on above: Performed By: #### L [id number] ####[facility] ([facility])[address] [place] [place] [address] CO2 [Moles/Vol] 27 mmol/L Normal 21-31 [facility] Comment on above: Performed By: #### L [id number] ####[facility] ([facility])[address] [place] [place] [address] Creatinine [Mass/Vol] 0.98 mg/dL Normal 0.60-1.20 [facility] Comment on above: Performed By: #### L [id number] ####[facility] ([facility])[address] [place] [place] [address] GLOMERULAR FILTRATION RATE ML/MIN/1.73 SQ M.PREDICTED 65.3 mL/min/1.73m*2 Normal >60.0 [facility] Comment on above: Result Comment: [facility]???s estimated glomerular filtration rate (eGFR) will [...] of individuals. Performed By: #### L [id number] ####[facility] (BEJENNIFER)[address] [place] [place] [address] Glucose [Mass/Vol] 151 mg/dL High 70-100 [facility] Comment on above: Performed By: #### L [id number] ####[facility] (BEAKER)[address] [place] [address] Potassium [Moles/Vol] 3.8 mmol/L Normal 3.5-5.1 [facility] Comment on above: Performed By: #### L [id number] ####[facility] (BEAKER)[address] [place] [address] Protein [Mass/Vol] 7.0 g/dL Normal 6.0-8.3 [facility] Comment on above: Performed By: #### L [id number] ####[facility] (BEAKER)[address] [place] [address] Sodium [Moles/Vol] 134 mmol/L Low 136-145 [facility] Comment on above: Performed By: #### L [id number] ####[facility] (BEAKER)[address] [place] [address] Urea nitrogen [Mass/Vol] 16 mg/dL Normal 7-25 [facility] Comment on above: Performed By: #### L [id number] ####[facility] (BEAKER)[address] [place] [address] UREA NITROGEN/CREATININE (MASS RATIO) IN SER/PLAS 16.3 Normal [facility] Comment on above: Performed By: #### L [id number] ####[facility] (BEAKER)[address] [place] [address] Eosinophils/100 WBC Auto (Bl d)on 05-11-2024 Eosinophils/100 WBC (Bld) Automated eosinophil % 0.9-7.0 [facility] Erythrocyte distribution wid th Auto (RBC) [Ratio]on 05-11-2024 Erythrocyte distribution width (RBC) [Ratio] Erythrocyte distribution width [Ratio] by Automated count 11.0-15.0 [facility] Estimated glomerular filtrat ion rate (GFR) non- Americanon 05-11-2024 GFR/1.73 sq M.predicted among non-blacks MDRD (S/P/Bld) [Vol rate/Area] Estimated glomerular filtration rate (GFR) non- Low >=60 mL/min/1.73 m 2 [facility] HPon 05-11-2024 HP Normal [facility] Hematocrit Auto (Bld) [Volum e fraction]on 05-11-2024 Hematocrit (Bld) [Volume fraction] Hematocrit [Volume Fraction] of Blood by Automated count 36.0-48.0 [facility] Hemoglobin [Mass/volume] in Bloodon 05-11-2024 Hemoglobin (Bld) [Mass/Vol] Hemoglobin [Mass/volume] in Blood 12.0-16.0 [facility] INR in Platelet poor plasma by Coagulation assayon 05-11-2024 INR Coag (PPP) [Relative time] INR in Platelet poor plasma by Coagulation assay [facility] Comment on above: DESIRED INR:2.0-3.0 CONDITIONS NOT LISTED BELOW2.5-3.5 FOR PROSTHETIC HEART VALVE REPLACEMENT2.5-3.5 RECURRENT THROMBOSIS Laboratory - Chemistry and C hemistry - challengeon 05-11-2024 Calcium [Mass/Vol] 9.2 mg/dL 8.5-10.1 [facility] Chloride [Moles/Vol] 103 mmol/L 98-107 [facility] CO2 [Moles/Vol] 30.0 mmol/L 21.0-32.0 [facility] Creatinine [Mass/Vol] 1.17 mg/dL High 0.55-1.[address] [facility] GFR/1.73 sq M.predicted MDRD (S/P/Bld) [Vol rate/Area] 57 mL/min/{1.73_m2} Low >=60 mL/min/1.73 m 2 [facility] Glucose [Mass/Vol] 127 mg/dL High 74-106 [facility] Potassium [Moles/Vol] 3.7 mmol/L 3.5-5.[address] [facility] Sodium [Moles/Vol] 139 mmol/L 136-145 [facility] Urea nitrogen [Mass/Vol] 15.0 mg/dL 7.0-18.0 [facility] Urea nitrogen/Creatinine [Mass ratio] 12.8 mg/mg [facility] Laboratory - Coagulationon 0 05-11-2024 aPTT Coag (Bld) [Time] 36.6 s Critically low 43.5-61.5 [facility] Comment on above: RESULTS CALLED TO GABBI ESPINOSA RN @BY Ruby Keith at 1902 Laboratory - Hematology and Cell countson 05-11-2024 Immature granulocytes/100 WBC (Bld) 0.3 % 0.0-0.5 [facility] Leukocytes [#/volume] correc chantelle for nucleated erythrocytes in Blood by Automated counon 05-11-2024 WBC corrected for nucl RBC Auto (Bld) [#/Vol] Leukocytes [#/volume] corrected for nucleated erythrocytes in Blood by Automated coun 4.0-11.0 [facility] Lymphocytes Auto (Bld) [#/Vo l]on 05-11-2024 Lymphocytes (Bld) [#/Vol] Lymphocytes [#/volume] in Blood by Automated count 1.2-3.8 [facility] Lymphocytes/100 WBC Auto (Bl d)on 05-11-2024 Lymphocytes/100 WBC (Bld) Lymphocytes/100 leukocytes in Blood by Automated count 20.5-60.0 [facility] MAGNESIUMon 05-11-2024 Magnesium [Mass/Vol] 2.2 mg/dL Normal 1.9-2.7 [facility] Comment on above: Performed By: #### L [id number] ####[facility] (BEAKER)[address] [place] [address] MCH Auto (RBC) [Entitic mass ]on 05-11-2024 MCH (RBC) [Entitic mass] MCH [Entitic mass] by Automated count 26.7-34.0 [facility] MCHC Auto (RBC) [Mass/Vol]on 05-11-2024 MCHC (RBC) [Mass/Vol] MCHC [Mass/volume] by Automated count 29.9-35.2 [facility] MCV Auto (RBC) [Entitic vol] on 05-11-2024 MCV (RBC) [Entitic vol] MCV [Entitic volume] by Automated count 81.0-99.0 [facility] Monocytes Auto (Bld) [#/Vol] on 05-11-2024 Monocytes (Bld) [#/Vol] Automated blood monocyte count 0.3-0.8 [facility] Monocytes/100 WBC Auto (Bld) on 05-11-2024 Monocytes/100 WBC (Bld) Automated monocyte % 1.7-12.0 [facility] Neutrophils Auto (Bld) [#/Vo l]on 05-11-2024 Neutrophils (Bld) [#/Vol] Neutrophils [#/volume] in Blood by Automated count 1.4-6.5 [facility] Neutrophils/100 WBC Auto (Bl d)on 05-11-2024 Neutrophils/100 WBC (Bld) Automated neutrophil % 43.0-75.0 [facility] No Panel Informationon 05-11 Troponin I High Sensitivity 1036.8 pg/mL Critically high 4.0-51.3 [facility] Comment on above: RESULTS CALLED TO [...] Eosinophils # (Auto) 0.4 10 3/uL 0.0-0.[address] [facility] Immature Granulocyte # (Auto) 0.02 10 3/uL 0.00-0.03 [facility] PHOSPHORUSon 05-11-2024 Magnesium [Mass/Vol] 3.1 mg/dL Normal 2.5-5.0 [facility] Comment on above: Performed By: #### L [id number] ####[facility] (BEAKER)[address] [place] [address] POCT GLUCOSE METER UNSOLICIT ED RESULTSon 05-11-2024 Glucose [Mass/Vol] 163 mg/dL High 70-105 [facility] Comment on above: Order Comment: Waive d Testing in the ED is performed under the ED CLIA certificate #[id number]. Result Comment: mlad d3 Performed By: #### L [id number] ####[facility] (BEAKER)[address] [place] [address] PROTIME-INRon 05-11-2024 INR IN PPP BY COAGULATION ASSAY 0.99 Normal 0.90-1.10 [facility] Comment on above: Result Comment: [employer] P RECOMMENDED INR FOR WARFARIN THERAPY CONDITION INRPROPHYLAXIS OF VENOUS THROMBOSIS 2-3(HIGH-RISK SURGERY)TREATMENT OF VENOUS THROMBOSIS 2-3TREATMENT OF PULMONARY EMBOLISM 2-3PREVENTION OF SYSTEMIC EMBOLISM: 2-3 ACUTE MYOCARDIAL INFARCTION TISSUE HEART VALVES VALVULAR HEART DISEASE ATRIAL FIBRILLATION RECURRENT SYSTEMIC EMBOLISMMECHANICAL HEART VALVE 2.5-3.5 FROM: ORAL ANTICOAGULANTS. MECHANISM OF ACTION, CLINICAL EFFECTIVENESS, AND OPTIMAL THERAPEUTIC RANGE. CHEST 1995;108:231S-246S. Performed By: #### L [id number] ####[facility] (BEAKER)[address] [place] [address] PROTHROMBIN TIME (PT) IN PPP BY COAGULATION ASSAY 13.1 Seconds Normal 12.3-14.8 [facility] Comment on above: Performed By: #### L [id number] ####[facility] (BEAKER)[address] [place] [address] Platelet mean volume Auto (B ld) [Entitic vol]on 05-11-2024 Platelet mean volume (Bld) [Entitic vol] Platelet mean volume [Entitic volume] in Blood by Automated count 9.5-13.5 [facility] Platelets Auto (Bld) [#/Vol] on 05-11-2024 Platelets (Bld) [#/Vol] Platelets [#/volume] in Blood by Automated count 150-450 [facility] Prothrombin time (PT)on 04-24 PT Coag (PPP) [Time] Prothrombin time (PT) 9.0- 11.6 [facility] RBC Auto (Bld) [#/Vol]on RBC (Bld) [#/Vol] Erythrocytes [#/volu me] in Blood by Automated count 4.20-5.40 [facility] Serum or plasma anion gap de terminationon 05-11-2024 Anion gap [Moles/Vol] Serum or plasma an ion gap determination [facility] TROPONIN Ion 05-11-2024 Troponin I.cardiac [Mass/Vol] 0.06 ng/mL High 0.00-0.04 [facility] Comment on above: Performed By: #### L [id number] ####[facility] (BEAKER)[address] [place] [address] Basophils Auto (Bld) [#/Vol] on 05-10-2024 Basophils (Bld) [#/Vol] Automated basophil count 0.0-0.1 [facility] Basophils/100 WBC Auto (Bld) on 05-10-2024 Basophils/100 WBC (Bld) Automated basophil % 0.2-2.0 [facility] Eosinophils/100 WBC Auto (Bl d)on 05-10-2024 Eosinophils/100 WBC (Bld) Automated eosinophil % 0.9-7.0 [facility] Erythrocyte distribution wid th Auto (RBC) [Ratio]on 05-10-2024 Erythrocyte distribution width (RBC) [Ratio] Erythrocyte distribution width [Ratio] by Automated count 11.0-15.0 [facility] Estimated glomerular filtrat ion rate (GFR) non- Americanon 05-10-2024 GFR/1.73 sq M.predicted among non-blacks MDRD (S/P/Bld) [Vol rate/Area] Estimated glomerular filtration rate (GFR) non- Low >=60 mL/min/1.73 m 2 [facility] Globulin Calc (S) [Mass/Vol] on 05-10-2024 Globulin (S) [Mass/Vol] Serum globulin measurement by calculation (mass/volume) [facility] Hematocrit Auto (Bld) [Volum e fraction]on 05-10-2024 Hematocrit (Bld) [Volume fraction] Hematocrit [Volume Fraction] of Blood by Automated count 36.0-48.0 [facility] Hemoglobin [Mass/volume] in Bloodon 05-10-2024 Hemoglobin (Bld) [Mass/Vol] Hemoglobin [Mass/volume] in Blood 12.0-16.0 [facility] Laboratory - Chemistry and C hemistry - challengeon 05-10-2024 Albumin [Mass/Vol] 3.5 g/dL 3.4-5.0 [facility] ALP [Catalytic activity/Vol] 144 U/L High 46-116 [facility] ALT [Catalytic activity/Vol] 21 U/L 14-59 [facility] AST [Catalytic activity/Vol] 22 U/L 15-37 [facility] Bilirubin [Mass/Vol] 0.5 mg/dL 0.2-1.0 [facility] Calcium [Mass/Vol] 9.3 mg/dL 8.5-10.1 [facility] Chloride [Moles/Vol] 102 mmol/L 98-107 [facility] CO2 [Moles/Vol] 29.0 mmol/L 21.0-32.0 [facility] Creatinine [Mass/Vol] 1.17 mg/dL High 0.55-1.[address] [facility] GFR/1.73 sq M.predicted MDRD (S/P/Bld) [Vol rate/Area] 57 mL/min/{1.73_m2} Low >=60 mL/min/1.73 m 2 [facility] Glucose [Mass/Vol] 142 mg/dL High 74-106 [facility] Natriuretic peptide B (Bld) [Mass/Vol] 1140.0 pg/mL High <=900.0 [facility] Potassium [Moles/Vol] 4.4 mmol/L 3.5-5.[address] [facility] Protein [Mass/Vol] 7.4 g/dL 6.4-8.2 [facility] Sodium [Moles/Vol] 138 mmol/L 136-145 [facility] Urea nitrogen [Mass/Vol] 14.0 mg/dL 7.0-18.0 [facility] Urea nitrogen/Creatinine [Mass ratio] 12.0 mg/mg [facility] Laboratory - Hematology and Cell countson 05-10-2024 Immature granulocytes/100 WBC (Bld) 0.4 % 0.0-0.5 [facility] Leukocytes [#/volume] correc chantelle for nucleated erythrocytes in Blood by Automated counon 05-10-2024 WBC corrected for nucl RBC Auto (Bld) [#/Vol] Leukocytes [#/volume] corrected for nucleated erythrocytes in Blood by Automated coun 4.0-11.0 [facility] Lymphocytes Auto (Bld) [#/Vo l]on 05-10-2024 Lymphocytes (Bld) [#/Vol] Lymphocytes [#/volume] in Blood by Automated count 1.2-3.8 [facility] Lymphocytes/100 WBC Auto (Bl d)on 05-10-2024 Lymphocytes/100 WBC (Bld) Lymphocytes/100 leukocytes in Blood by Automated count Low 20.5-60.0 [facility] MCH Auto (RBC) [Entitic mass ]on 05-10-2024 MCH (RBC) [Entitic mass] MCH [Entitic mass] by Automated count 26.7-34.0 [facility] MCHC Auto (RBC) [Mass/Vol]on 05-10-2024 MCHC (RBC) [Mass/Vol] MCHC [Mass/volume] by Automated count 29.9-35.2 [facility] MCV Auto (RBC) [Entitic vol] on 05-10-2024 MCV (RBC) [Entitic vol] MCV [Entitic volume] by Automated count 81.0-99.0 [facility] Monocytes Auto (Bld) [#/Vol] on 05-10-2024 Monocytes (Bld) [#/Vol] Automated blood monocyte count 0.3-0.8 [facility] Monocytes/100 WBC Auto (Bld) on 05-10-2024 Monocytes/100 WBC (Bld) Automated monocyte % 1.7-12.0 [facility] Neutrophils Auto (Bld) [#/Vo l]on 05-10-2024 Neutrophils (Bld) [#/Vol] Neutrophils [#/volume] in Blood by Automated count 1.4-6.5 [facility] Neutrophils/100 WBC Auto (Bl d)on 05-10-2024 Neutrophils/100 WBC (Bld) Automated neutrophil % 43.0-75.0 [facility] No Panel Informationon 05-10 Troponin I High Sensitivity 641.2 pg/mL Critically high 4.0-51.3 [facility] Comment on above: RESULTS CALLED TO [...] Eosinophils # (Auto) 0.4 10 3/uL 0.0-0.[address] [facility] Immature Granulocyte # (Auto) 0.03 10 3/uL 0.00-0.03 [facility] Platelet mean volume Auto (B ld) [Entitic vol]on 05-10-2024 Platelet mean volume (Bld) [Entitic vol] Platelet mean volume [Entitic volume] in Blood by Automated count 9.5-13.5 [facility] Platelets Auto (Bld) [#/Vol] on 05-10-2024 Platelets (Bld) [#/Vol] Platelets [#/volume] in Blood by Automated count 150-450 [facility] RBC Auto (Bld) [#/Vol]on RBC (Bld) [#/Vol] Erythrocytes [#/volu me] in Blood by Automated count 4.20-5.40 [facility] Serum or plasma albumin/glob ulin mass ratioon 05-10-2024 Albumin/Globulin [Mass ratio] Serum or plasma albumin/globulin mass ratio [facility] Serum or plasma anion gap de terminationon 05-10-2024 Anion gap [Moles/Vol] Serum or plasma an ion gap determination [facility] 29on 02-19-2024 29 Addendum created 941 by Mario Bermudez MD Delete clinical note Normal [facility] 29 Addendum created 940 by Mario Bermudez MD Delete clinical note Normal [facility] 29on 01-22-2024 29 Addended by: PALMIRA CAUSEY on: 01/22/2024 02:27 PM Modules accepted: Orders Normal [facility] Orders Onlyon 01-22-2024 Orders Only Normal [facility] BASIC METABOLIC PANELon 10- Anion gap [Moles/Vol] 10 mmol/L Normal 7-20 [facility] Comment on above: Performed By: #### L [id number] ####[facility] (BEAKER)[address] [place] [address] Calcium [Mass/Vol] 8.6 mg/dL Normal 8.6-10.3 [facility] Comment on above: Performed By: #### L [id number] ####[facility] (BEAKER)[address] [place] [address] Chloride [Moles/Vol] 104 mmol/L Normal 98-107 [facility] Comment on above: Performed By: #### L [id number] ####[facility] (BEAKER)[address] [place] [address] CO2 [Moles/Vol] 29 mmol/L Normal 21-31 [facility] Comment on above: Performed By: #### L [id number] ####[facility] (BEAKER)[address] [place] [address] Creatinine [Mass/Vol] 0.91 mg/dL Normal 0.60-1.20 [facility] Comment on above: Performed By: #### L [id number] ####[facility] (BEAKER)[address] [place] [address] GLOMERULAR FILTRATION RATE ML/MIN/1.73 SQ M.PREDICTED 71.3 mL/min/1.73m*2 Normal >60.0 [facility] Comment on above: Result Comment: [facility]???s estimated glomerular filtration rate (eGFR) will [...] of individuals. Performed By: #### L [id number] ####[facility] (BEAKER)[address] [place] [address] Glucose [Mass/Vol] 150 mg/dL High 70-100 [facility] Comment on above: Performed By: #### L [id number] ####[facility] (BEAKER)[address] [place] [address] Potassium [Moles/Vol] 4.1 mmol/L Normal 3.5-5.1 [facility] Comment on above: Performed By: #### L [id number] ####[facility] (BEAKER)[address] [place] [address] Sodium [Moles/Vol] 139 mmol/L Normal 136-145 [facility] Comment on above: Performed By: #### L [id number] ####[facility] (BEAKER)[address] [place] [address] Urea nitrogen [Mass/Vol] 25 mg/dL Normal 7-25 [facility] Comment on above: Performed By: #### L [id number] ####[facility] (BEAKER)[address] [place] [address] UREA NITROGEN/CREATININE (MASS RATIO) IN SER/PLAS 27.5 Normal [facility] Comment on above: Performed By: #### L [id number] ####[facility] (BEAKER)[address] [place] [address] CBCon 01-12-2024 Erythrocyte distribution width (RBC) [Ratio] 15.6 % High 11.5-15.0 [facility] Comment on above: Performed By: #### L [id number] ####[facility] [place], [place] [address] ERYTHROCYTE MEAN CORPUSCULAR HEMOGLOBIN CONCENTRATION (G/DL) BY AUTOMATED 31.9 g/dL Low 32.0-35.0 [facility] Comment on above: Performed By: #### L [id number] ####[facility] ([facility])[address] [place] [address] Hematocrit (Bld) [Volume fraction] 32.3 % Low 36.0-48.0 [facility] Comment on above: Performed By: #### L [id number] ####[facility] ([facility])[address] [place] [place] [address] Hemoglobin (Bld) [Mass/Vol] 10.3 g/dL Low 12.0-15.0 [facility] Comment on above: Performed By: #### L [id number] ####[facility] ([facility])[address] [place] [place] [address] MCH (RBC) [Entitic mass] 31.7 pg Normal 27.0-33.0 [facility] Comment on above: Performed By: #### L [id number] ####[facility] [place] [address] MCV (RBC) [Entitic vol] 99.4 fL High 82.0-98.0 [facility] Comment on above: Performed By: #### L [id number] ####[facility] ([facility] [place] [address] PLATELETS (10*3/UL) IN BLOOD AUTOMATED COUNT 263 10*3/uL Normal 150-400 [facility] Comment on above: Performed By: #### L [id number] ####[facility] ([facility] [place] [place], [place] [address] RBC (Bld) [#/Vol] 3.25 10*6/uL Low 3.80-5.00 [facility] Comment on above: Performed By: #### L [id number] ####[facility] (BEAKER)[address] [place] [place], [place] [address] WBC (Bld) [#/Vol] 5.96 10*3/uL Normal 4.00-10.60 [facility] Comment on above: Performed By: #### L [id number] ####[facility] ([facility])[address] [place] [address] 37on 01-08-2024 37 Normal [facility] 36on 01-07-2024 36 Called patient to re mind her to have chest xray completed prior to her appointment tomorrow. Normal [facility] BASIC METABOLIC PANELon 12-22 Anion gap [Moles/Vol] 8 mmol/L Normal 7-20 [facility] Comment on above: Performed By: #### L [id number] ####[facility] ([facility] [place] [address] Calcium [Mass/Vol] 8.4 mg/dL Low 8.6-10.3 [facility] Comment on above: Performed By: #### L [id number] ####[facility] ([facility] [place] [place] [address] Chloride [Moles/Vol] 108 mmol/L High 98-107 [facility] Comment on above: Performed By: #### L [id number] ####[facility] (BEAKER)[address] [place] [address] CO2 [Moles/Vol] 27 mmol/L Normal 21-31 [facility] Comment on above: Performed By: #### L [id number] ####[facility] (BEAKER)[address] [place] [address] Creatinine [Mass/Vol] 0.81 mg/dL Normal 0.60-1.20 [facility] Comment on above: Performed By: #### L [id number] ####[facility] (BEAKER)[address] [place] [address] GLOMERULAR FILTRATION RATE ML/MIN/1.73 SQ M.PREDICTED 82.0 mL/min/1.73m*2 Normal >60.0 [facility] Comment on above: Result Comment: [facility]???s estimated glomerular filtration rate (eGFR) will [...] of individuals. Performed By: #### L [id number] ####[facility] ([facility])[address] [place] [address] Glucose [Mass/Vol] 106 mg/dL High 70-100 [facility] Comment on above: Performed By: #### L [id number] ####[facility] ([facility])[address] [place] [address] Potassium [Moles/Vol] 4.1 mmol/L Normal 3.5-5.1 [facility] Comment on above: Performed By: #### L [id number] ####[facility] ([facility])[address] [place] [address] Sodium [Moles/Vol] 139 mmol/L Normal 136-145 [facility] Comment on above: Performed By: #### L [id number] ####[facility] ([facility])[address] [place] [address] Urea nitrogen [Mass/Vol] 18 mg/dL Normal 7-25 [facility] Comment on above: Performed By: #### L [id number] ####[facility] ([facility])[address] [place] [address] UREA NITROGEN/CREATININE (MASS RATIO) IN SER/PLAS 22.2 Normal [facility] Comment on above: Performed By: #### L [id number] ####[facility] ([facility] [place] [place] [address] CBCon 01-05-2024 Erythrocyte distribution width (RBC) [Ratio] 17.1 % High 11.5-15.0 [facility] Comment on above: Performed By: #### L [id number] ####[facility] ([facility])[address] [place] [place] [address] ERYTHROCYTE MEAN CORPUSCULAR HEMOGLOBIN CONCENTRATION (G/DL) BY AUTOMATED 31.0 g/dL Low 32.0-35.0 [facility] Comment on above: Performed By: #### L [id number] ####[facility] ([facility])[address] [place] [place] [address] Hematocrit (Bld) [Volume fraction] 32.6 % Low 36.0-48.0 [facility] Comment on above: Performed By: #### L [id number] ####[facility] ([facility])[address] [place] [place] [address] Hemoglobin (Bld) [Mass/Vol] 10.1 g/dL Low 12.0-15.0 [facility] Comment on above: Performed By: #### L [id number] ####[facility] ([facility])[address] [place] [place] [address] MCH (RBC) [Entitic mass] 32.1 pg Normal 27.0-33.0 [facility] Comment on above: Performed By: #### L [id number] ####[facility] ([facility])[address] [place] [place] [address] MCV (RBC) [Entitic vol] 103.5 fL High 82.0-98.0 [facility] Comment on above: Performed By: #### L [id number] ####[facility] ([facility])[address] [place] [place] [address] PLATELETS (10*3/UL) IN BLOOD AUTOMATED COUNT 371 10*3/uL Normal 150-400 [facility] Comment on above: Performed By: #### L [id number] ####[facility] ([facility] [place] [place] [address] RBC (Bld) [#/Vol] 3.15 10*6/uL Low 3.80-5.00 [facility] Comment on above: Performed By: #### L [id number] ####[facility] (BEAKER)[address] [place] [place] [address] WBC (Bld) [#/Vol] 6.99 10*3/uL Normal 4.00-10.60 [facility] Comment on above: Performed By: #### L [id number] ####[facility] ([facility] [place] [place] [address] CBC WITH AUTO DIFFERENTIALon 12-31-2023 Basophils (Bld) [#/Vol] 0.07 10*3/uL Normal 0.00-0.20 [facility] Comment on above: Performed By: #### L [id number] ####[facility] ([facility] [place] [place] [address] Basophils/100 WBC (Bld) 1.1 % High 0.0-1.0 [facility] Comment on above: Performed By: #### L [id number] ####[facility] ([facility])[address] [place] [place] [address] Eosinophils (Bld) [#/Vol] 0.39 10*3/uL Normal 0.00-0.50 [facility] Comment on above: Performed By: #### L [id number] ####[facility] ([facility])[address] [place], [place] [address] Eosinophils/100 WBC (Bld) 6.3 % High 0.0-6.0 [facility] Comment on above: Performed By: #### L [id number] ####[facility] ([facility])[address] [place] [place] [address] Erythrocyte distribution width (RBC) [Ratio] 17.5 % High 11.5-15.0 [facility] Comment on above: Performed By: #### L [id number] ####[facility] ([facility])[address] [place] [address] ERYTHROCYTE MEAN CORPUSCULAR HEMOGLOBIN CONCENTRATION (G/DL) BY AUTOMATED 30.6 g/dL Low 32.0-35.0 [facility] Comment on above: Performed By: #### L [id number] ####[facility] ([facility])[address] [place] [place] [address] Hematocrit (Bld) [Volume fraction] 28.4 % Low 36.0-48.0 [facility] Comment on above: Performed By: #### L [id number] ####[facility] ([facility])[address] [place] [address] Hemoglobin (Bld) [Mass/Vol] 8.7 g/dL Low 12.0-15.0 [facility] Comment on above: Performed By: #### L [id number] ####[facility] ([facility])[address] [place] [address] Immature granulocytes (Bld) [#/Vol] 0.04 10*3/uL Normal 0.00-0.20 [facility] Comment on above: Performed By: #### L [id number] ####[facility] ([facility])[address] [place] [address] Immature granulocytes/100 WBC (Bld) 0.6 % Normal 0.0-1.0 [facility] Comment on above: Performed By: #### L [id number] ####[facility] ([facility])[address] [place] [address] Lymphocytes (Bld) [#/Vol] 1.24 10*3/uL Normal 1.20-4.00 [facility] Comment on above: Performed By: #### L [id number] ####[facility] ([facility])[address] [place] [address] Lymphocytes/100 WBC (Bld) 20.0 % Normal 20.0-45.0 [facility] Comment on above: Performed By: #### L [id number] ####[facility] ([facility])[address] [place] [address] MCH (RBC) [Entitic mass] 31.8 pg Normal 27.0-33.0 [facility] Comment on above: Performed By: #### L [id number] ####[facility] ([facility])[address] [place] [address] MCV (RBC) [Entitic vol] 103.6 fL High 82.0-98.0 [facility] Comment on above: Performed By: #### L [id number] ####[facility] ([facility])[address] [place], [place] [address] Monocytes (Bld) [#/Vol] 0.35 10*3/uL Normal 0.10-1.00 [facility] Comment on above: Performed By: #### L [id number] ####[facility] ([facility])[address] [place], [place] [address] Monocytes/100 WBC (Bld) 5.6 % Normal 5.0-12.0 [facility] Comment on above: Performed By: #### L [id number] ####[facility] ([facility])[address] [place] [address] Neutrophils (Bld) [#/Vol] 4.12 10*3/uL Normal 1.60-7.60 [facility] Comment on above: Performed By: #### L [id number] ####[facility] ([facility])[address] [place] [address] Neutrophils/100 WBC (Bld) 66.4 % Normal 40.0-72.0 [facility] Comment on above: Performed By: #### L [id number] ####[facility] ([facility])[address] [place], [place] [address] NRBC (PER 100 WBCS) BY AUTOMATED COUNT 0.0 % Normal 0 [facility] Comment on above: Performed By: #### L [id number] ####[facility] ([facility])[address] [place] [address] PLATELETS (10*3/UL) IN BLOOD AUTOMATED COUNT 405 10*3/uL High 150-400 [facility] Comment on above: Performed By: #### L [id number] ####[facility] ([facility])[address] [place] [address] RBC (Bld) [#/Vol] 2.74 10*6/uL Low 3.80-5.00 [facility] Comment on above: Performed By: #### L [id number] ####[facility] ([facility])[address] [place] [place] [address] WBC (Bld) [#/Vol] 6.21 10*3/uL Normal 4.00-10.60 [facility] Comment on above: Performed By: #### L [id number] ####[facility] ([facility])[address] [place] [address] COMPREHENSIVE METABOLIC PANE Kirit 12-31-2023 Albumin [Mass/Vol] 3.2 g/dL Low 3.5-5.7 [facility] Comment on above: Performed By: #### L [id number] ####[facility] ([facility])[address] [place] [address] ALP [Catalytic activity/Vol] 115 U/L High 34-104 [facility] Comment on above: Performed By: #### L [id number] ####[facility] ([facility])[address] [place] [address] ALT [Catalytic activity/Vol] 11 U/L Normal 7-52 [facility] Comment on above: Performed By: #### L [id number] ####[facility] ([facility])[address] [place] [address] Anion gap [Moles/Vol] 9 mmol/L Normal 7-20 [facility] Comment on above: Performed By: #### L [id number] ####[facility] ([facility])[address] [place] [address] AST [Catalytic activity/Vol] 19 U/L Normal 13-39 [facility] Comment on above: Performed By: #### L [id number] ####[facility] ([facility])[address] [place] [address] Bilirubin [Mass/Vol] 0.3 mg/dL Normal 0.3-1.0 [facility] Comment on above: Performed By: #### L [id number] ####[facility] ([facility])[address] [place] [address] Calcium [Mass/Vol] 8.5 mg/dL Low 8.6-10.3 [facility] Comment on above: Performed By: #### L [id number] ####[facility] ([facility])[address] [place] [address] Chloride [Moles/Vol] 104 mmol/L Normal 98-107 [facility] Comment on above: Performed By: #### L [id number] ####[facility] ([facility])[address] [place] [address] CO2 [Moles/Vol] 28 mmol/L Normal 21-31 [facility] Comment on above: Performed By: #### L [id number] ####[facility] ([facility])[address] [place] [address] Creatinine [Mass/Vol] 0.66 mg/dL Normal 0.60-1.20 [facility] Comment on above: Performed By: #### L [id number] ####[facility] ([facility])[address] [place] [address] GLOMERULAR FILTRATION RATE ML/MIN/1.73 SQ M.PREDICTED 99.1 mL/min/1.73m*2 Normal >60.0 [facility] Comment on above: Result Comment: [facility]???s estimated glomerular filtration rate (eGFR) will [...] of individuals. Performed By: #### L [id number] ####[facility] ([facility])[address] [place] [address] Glucose [Mass/Vol] 112 mg/dL High 70-100 [facility] Comment on above: Performed By: #### L [id number] ####[facility] ([facility])[address] [place] [address] Potassium [Moles/Vol] 4.3 mmol/L Normal 3.5-5.1 [facility] Comment on above: Performed By: #### L [id number] ####[facility] ([facility])[address] [place] [address] Protein [Mass/Vol] 5.7 g/dL Low 6.0-8.3 [facility] Comment on above: Performed By: #### L [id number] ####[facility] ([facility])[address] [place] [address] Sodium [Moles/Vol] 137 mmol/L Normal 136-145 [facility] Comment on above: Performed By: #### L [id number] ####[facility] ([facility])[address] [place] [address] Urea nitrogen [Mass/Vol] 17 mg/dL Normal 7-25 [facility] Comment on above: Performed By: #### L [id number] ####[facility] ([facility])[address] [place] [address] UREA NITROGEN/CREATININE (MASS RATIO) IN SER/PLAS 25.8 [facility] Comment on above: Performed By: #### L [id number] ####[facility] ([facility])[address] [place] [address] 30on 12-30-2023 30 [facility] 30 [facility] DSon 12-30-2023 DS [facility] Orders Onlyon 12-30-2023 Orders Only [facility] POCT GLUCOSE METER UNSOLICIT ED RESULTSon 12-30-2023 Glucose [Mass/Vol] 164 mg/dL High 70-105 [facility] Comment on above: Order Comment: Waive d Testing in the ED is performed under the ED CLIA certificate #[id number]. Result Comment: bflo od Performed By: #### L [id number] ####[facility] ([facility])[address] [place] [address] Glucose [Mass/Vol] 144 mg/dL High 70-105 [facility] Comment on above: Order Comment: Waive d Testing in the ED is performed under the ED CLIA certificate #[id number]. Result Comment: bflo od Performed By: #### L [id number] ####[facility] ([facility])[address] [place] [address] 30on 12-29-2023 30 Normal [facility] 30 [facility] 30 Normal [facility] BASIC METABOLIC PANELon 10-0 Anion gap [Moles/Vol] 9 mmol/L Normal 7-20 [facility] Comment on above: Performed By: #### L [id number] ####[facility] ([facility])[address] [place] [address] Calcium [Mass/Vol] 8.2 mg/dL Low 8.6-10.3 [facility] Comment on above: Performed By: #### L [id number] ####[facility] ([facility])[address] [place] [address] Chloride [Moles/Vol] 103 mmol/L Normal 98-107 [facility] Comment on above: Performed By: #### L [id number] ####[facility] ([facility])[address] [place] [address] CO2 [Moles/Vol] 30 mmol/L Normal 21-31 [facility] Comment on above: Performed By: #### L [id number] ####[facility] ([facility])[address] [place] [address] Creatinine [Mass/Vol] 0.69 mg/dL Normal 0.60-1.20 [facility] Comment on above: Performed By: #### L [id number] ####[facility] ([facility])[address] [place] [place] [address] GLOMERULAR FILTRATION RATE ML/MIN/1.73 SQ M.PREDICTED 98.1 mL/min/1.73m*2 Normal >60.0 [facility] Comment on above: Result Comment: [facility]???s estimated glomerular filtration rate (eGFR) will [...] of individuals. Performed By: #### L [id number] ####[facility] ([facility])[address] [place] [address] Glucose [Mass/Vol] 164 mg/dL High 70-100 [facility] Comment on above: Performed By: #### L [id number] ####[facility] ([facility])[address] [place] [address] Potassium [Moles/Vol] 4.1 mmol/L Normal 3.5-5.1 [facility] Comment on above: Performed By: #### L [id number] ####[facility] ([facility])[address] [place] [address] Sodium [Moles/Vol] 138 mmol/L Normal 136-145 [facility] Comment on above: Performed By: #### L [id number] ####[facility] ([facility])[address] [place] [address] Urea nitrogen [Mass/Vol] 13 mg/dL Normal 7-25 [facility] Comment on above: Performed By: #### L [id number] ####[facility] ([facility])[address] [place] [place] [address] UREA NITROGEN/CREATININE (MASS RATIO) IN SER/PLAS 18.8 Normal [facility] Comment on above: Performed By: #### L [id number] ####[facility] ([facility])[address] [place] [address] CBCon 12-29-2023 Erythrocyte distribution width (RBC) [Ratio] 17.5 % High 11.5-15.0 [facility] Comment on above: Performed By: #### L [id number] ####[facility] ([facility])[address] [place] [place] [address] ERYTHROCYTE MEAN CORPUSCULAR HEMOGLOBIN CONCENTRATION (G/DL) BY AUTOMATED 31.7 g/dL Low 32.0-35.0 [facility] Comment on above: Performed By: #### L [id number] ####[facility] ([facility])[address] [place] [place] [address] Hematocrit (Bld) [Volume fraction] 26.2 % Low 36.0-48.0 [facility] Comment on above: Performed By: #### L [id number] ####[facility] ([facility])[address] [place] [place] [address] Hemoglobin (Bld) [Mass/Vol] 8.3 g/dL Low 12.0-15.0 [facility] Comment on above: Performed By: #### L [id number] ####[facility] ([facility])[address] [place] [place] [address] MCH (RBC) [Entitic mass] 32.3 pg Normal 27.0-33.0 [facility] Comment on above: Performed By: #### L [id number] ####[facility] ([facility])[address] [place] [place] [address] MCV (RBC) [Entitic vol] 101.9 fL High 82.0-98.0 [facility] Comment on above: Performed By: #### L [id number] ####[facility] ([facility])[address] [place] [place] [address] PLATELETS (10*3/UL) IN BLOOD AUTOMATED COUNT 393 10*3/uL Normal 150-400 [facility] Comment on above: Performed By: #### L [id number] ####[facility] ([facility])[address] [place] [place] [address] RBC (Bld) [#/Vol] 2.57 10*6/uL Low 3.80-5.00 [facility] Comment on above: Performed By: #### L [id number] ####[facility] ([facility])[address] [place] [place] [address] WBC (Bld) [#/Vol] 6.00 10*3/uL Normal 4.00-10.60 [facility] Comment on above: Performed By: #### L [id number] ####[facility] ([facility])[address] [place] [place] [address] FERRITINon 12-29-2023 FERRITIN (NG/ML) IN SER/PLAS 319.0 ng/mL High 11.0-307.0 [facility] Comment on above: Performed By: #### L [id number] ####[facility] ([facility])[address] [place] [place] [address] MAGNESIUMon 12-29-2023 Magnesium [Mass/Vol] 2.2 mg/dL Normal 1.9-2.7 [facility] Comment on above: Performed By: #### L [id number] ####[facility] ([facility])[address] [place] [place] [address] POCT GLUCOSE METER UNSOLICIT ED RESULTSon 12-29-2023 Glucose [Mass/Vol] 173 mg/dL High 70-105 [facility] Comment on above: Order Comment: Waive d Testing in the ED is performed under the ED CLIA certificate #[id number]. Result Comment: [email or web address] Performed By: #### L [id number] ####[facility] ([facility])[address] [place] [place] [address] Glucose [Mass/Vol] 133 mg/dL High 70-105 [facility] Comment on above: Order Comment: Waive d Testing in the ED is performed under the ED CLIA certificate #[id number]. Result Comment: [email or web address] Performed By: #### L [id number] ####[facility] ([employer])[address] [place] [address] Glucose [Mass/Vol] 124 mg/dL High 70-105 [facility] Comment on above: Order Comment: Waive d Testing in the ED is performed under the ED CLIA certificate #[id number]. Result Comment: [email or web address] Performed By: #### L [id number] ####[facility] ([employer])[address] [place] [address] Glucose [Mass/Vol] 112 mg/dL High 70-105 [facility] Comment on above: Order Comment: Waive d Testing in the ED is performed under the ED CLIA certificate #[id number]. Result Comment: bflo od Performed By: #### L [id number] ####[facility] ([employer])[address] [place] [address] 30on 12-28-2023 30 Normal [facility] POCT GLUCOSE METER UNSOLICIT ED RESULTSon 12-28-2023 Glucose [Mass/Vol] 166 mg/dL High 70-105 [facility] Comment on above: Order Comment: Waive d Testing in the ED is performed under the ED CLIA certificate #[id number]. Result Comment: [email or web address] Performed By: #### L [id number] ####[facility] ([employer])[address] [place] [address] Glucose [Mass/Vol] 103 mg/dL Normal 70-105 [facility] Comment on above: Order Comment: Waive d Testing in the ED is performed under the ED CLIA certificate #[id number]. Result Comment: [email or web address] Performed By: #### L [id number] ####[facility] ([employer])[address] [place] [address] Glucose [Mass/Vol] 154 mg/dL High 70-105 [facility] Comment on above: Order Comment: Waive d Testing in the ED is performed under the ED CLIA certificate #[id number]. Result Comment: [email or web address] Performed By: #### L [id number] ####[facility] ([facility])[address] [place] [address] Glucose [Mass/Vol] 128 mg/dL High 70-105 [facility] Comment on above: Order Comment: Waive d Testing in the ED is performed under the ED CLIA certificate #[id number]. Result Comment: [email or web address] Performed By: #### L [id number] ####[facility] ([facility])[address] [place] [address] 30on 12-27-2023 30 Normal [facility] 30 [facility] BASIC METABOLIC PANELon 10-0 Anion gap [Moles/Vol] 12 mmol/L Normal 7-20 [facility] Comment on above: Performed By: #### L [id number] ####[facility] ([facility])[address] [place] [address] Calcium [Mass/Vol] 8.1 mg/dL Low 8.6-10.3 [facility] Comment on above: Performed By: #### L [id number] ####[facility] ([facility])[address] [place] [address] Chloride [Moles/Vol] 104 mmol/L Normal 98-107 [facility] Comment on above: Performed By: #### L [id number] ####[facility] ([facility])[address] [place] [address] CO2 [Moles/Vol] 24 mmol/L Normal 21-31 [facility] Comment on above: Performed By: #### L [id number] ####[facility] ([facility])[address] [place] [address] Creatinine [Mass/Vol] 0.69 mg/dL Normal 0.60-1.20 [facility] Comment on above: Performed By: #### L [id number] ####[facility] ([facility])[address] [place] [address] GLOMERULAR FILTRATION RATE ML/MIN/1.73 SQ M.PREDICTED 98.1 mL/min/1.73m*2 Normal >60.0 [facility] Comment on above: Result Comment: [facility]???s estimated glomerular filtration rate (eGFR) will [...] of individuals. Performed By: #### L [id number] ####[facility] ([facility])[address] [place] [place] [address] Glucose [Mass/Vol] 107 mg/dL High 70-100 [facility] Comment on above: Performed By: #### L [id number] ####[facility] ([facility])[address] [place] [address] Potassium [Moles/Vol] 4.6 mmol/L Normal 3.5-5.1 [facility] Comment on above: Performed By: #### L [id number] ####[facility] ([facility])[address] [place] [address] Sodium [Moles/Vol] 135 mmol/L Low 136-145 [facility] Comment on above: Performed By: #### L [id number] ####[facility] ([facility])[address] [place] [address] Urea nitrogen [Mass/Vol] 20 mg/dL Normal 7-25 [facility] Comment on above: Performed By: #### L [id number] ####[facility] ([facility])[address] [place] [address] UREA NITROGEN/CREATININE (MASS RATIO) IN SER/PLAS 29.0 Normal [facility] Comment on above: Performed By: #### L [id number] ####[facility] ([facility])[address] [place] [place] [address] CBCon 12-27-2023 Erythrocyte distribution width (RBC) [Ratio] 17.4 % High 11.5-15.0 [facility] Comment on above: Performed By: #### L [id number] ####[facility] ([facility])[address] [place] [place] [address] ERYTHROCYTE MEAN CORPUSCULAR HEMOGLOBIN CONCENTRATION (G/DL) BY AUTOMATED 30.4 g/dL Low 32.0-35.0 [facility] Comment on above: Performed By: #### L [id number] ####[facility] ([facility])[address] [place] [place] [address] Hematocrit (Bld) [Volume fraction] 28.3 % Low 36.0-48.0 [facility] Comment on above: Performed By: #### L [id number] ####[facility] ([facility])[address] [place] [place] [address] Hemoglobin (Bld) [Mass/Vol] 8.6 g/dL Low 12.0-15.0 [facility] Comment on above: Performed By: #### L [id number] ####[facility] ([facility])[address] [place] [place] [address] IMMATURE PLATELET FRACTION % 0.5 % Low 0.8-6.3 [facility] Comment on above: Performed By: #### L [id number] ####[facility] ([facility])[address] [place] [place] [address] MCH (RBC) [Entitic mass] 32.2 pg Normal 27.0-33.0 [facility] Comment on above: Performed By: #### L [id number] ####[facility] ([facility])[address] [place] [place] [address] MCV (RBC) [Entitic vol] 106.0 fL High 82.0-98.0 [facility] Comment on above: Performed By: #### L [id number] ####[facility] ([facility])[address] [place] [place] [address] Platelet mean volume (Bld) [Entitic vol] 8.9 fL Normal 7.5-11.5 [facility] Comment on above: Performed By: #### L [id number] ####[facility] ([facility])[address] [place] [place] [address] PLATELETS (10*3/UL) IN BLOOD AUTOMATED COUNT 437 10*3/uL High 150-400 [facility] Comment on above: Performed By: #### L [id number] ####[facility] ([facility])[address] [place] [place] [address] RBC (Bld) [#/Vol] 2.67 10*6/uL Low 3.80-5.00 [facility] Comment on above: Performed By: #### L [id number] ####[facility] ([facility])[address] [place] [place] [address] WBC (Bld) [#/Vol] 7.03 10*3/uL Normal 4.00-10.60 [facility] Comment on above: Performed By: #### L [id number] ####[facility] ([facility])[address] [place] [place] [address] MAGNESIUMon 12-27-2023 Magnesium [Mass/Vol] 2.5 mg/dL Normal 1.9-2.7 [facility] Comment on above: Performed By: #### L [id number] ####[facility] ([facility])[address] [place] [place] [address] POCT GLUCOSE METER UNSOLICIT ED RESULTSon 12-27-2023 Glucose [Mass/Vol] 100 mg/dL Normal 70-105 [facility] Comment on above: Order Comment: Waive d Testing in the ED is performed under the ED CLIA certificate #[id number]. Result Comment: [email or web address] Performed By: #### L [id number] ####[facility] ([facility])[address] [place] [address] Glucose [Mass/Vol] 130 mg/dL High 70-105 [facility] Comment on above: Order Comment: Waive d Testing in the ED is performed under the ED CLIA certificate #[id number]. Result Comment: bflo od Performed By: #### L [id number] ####[facility] ([facility])[address] [place] [address] Glucose [Mass/Vol] 174 mg/dL High 70-105 [facility] Comment on above: Order Comment: Waive d Testing in the ED is performed under the ED CLIA certificate #[id number]. Result Comment: bflo od Performed By: #### L [id number] ####[facility] ([facility])[address] [place] [address] Glucose [Mass/Vol] 131 mg/dL High 70-105 [facility] Comment on above: Order Comment: Waive d Testing in the ED is performed under the ED CLIA certificate #[id number]. Result Comment: bflo od Performed By: #### L [id number] ####[facility] ([facility])[address] [place] [address] 30on 12-26-2023 30 Normal [facility] 30 Normal [facility] POCT GLUCOSE METER UNSOLICIT ED RESULTSon 12-26-2023 Glucose [Mass/Vol] 144 mg/dL High 70-105 [facility] Comment on above: Order Comment: Waive d Testing in the ED is performed under the ED CLIA certificate #[id number]. Result Comment: [email or web address] Performed By: #### L [id number] ####[facility] ([employer])[address] [place] [address] Glucose [Mass/Vol] 161 mg/dL High 70-105 [facility] Comment on above: Order Comment: Waive d Testing in the ED is performed under the ED CLIA certificate #[id number]. Result Comment: cgro ll Performed By: #### L [id number] ####[facility] ([facility])[address] [place] [address] Glucose [Mass/Vol] 118 mg/dL High 70-105 [facility] Comment on above: Order Comment: Waive d Testing in the ED is performed under the ED CLIA certificate #[id number]. Result Comment: [email or web address] [email or web address] Performed By: #### L [id number] ####[facility] ([facility])[address] [place] [address] Glucose [Mass/Vol] 128 mg/dL High 70-105 [facility] Comment on above: Order Comment: Waive d Testing in the ED is performed under the ED CLIA certificate #[id number]. Result Comment: [email or web address] Performed By: #### L [id number] ####[facility] ([facility])[address] [place] [address] 30on 12-25-2023 30 The patient is Moder ately Stable - Low risk of patient condition declining or worsening The patient's goals for the shift include no pain The clinical goals for the shift include vss/pain control Normal [facility] 30 Normal [facility] NURSNOTEon 12-25-2023 NURSNOTE Normal [facility] POCT GLUCOSE METER UNSOLICIT ED RESULTSon 12-25-2023 Glucose [Mass/Vol] 115 mg/dL High 70-105 [facility] Comment on above: Order Comment: Waive d Testing in the ED is performed under the ED CLIA certificate #[id number]. Result Comment: larry morrow Performed By: #### L [id number] ####[facility] ([facility])[address] [place] [address] Glucose [Mass/Vol] 118 mg/dL High 70-105 [facility] Comment on above: Order Comment: Waive d Testing in the ED is performed under the ED CLIA certificate #[id number]. Result Comment: [email or web address] Performed By: #### L [id number] ####[facility] ([employer])[address] [place] [address] Glucose [Mass/Vol] 169 mg/dL High 70-105 [facility] Comment on above: Order Comment: Waive d Testing in the ED is performed under the ED CLIA certificate #[id number]. Result Comment: [email or web address] Performed By: #### L [id number] ####[facility] ([facility] [address] Glucose [Mass/Vol] 126 mg/dL High 70-105 [facility] Comment on above: Order Comment: Waive d Testing in the ED is performed under the ED CLIA certificate #[id number]. Result Comment: [email or web address] Performed By: #### L [id number] ####[facility] ([facility])[address] [facility] [place] [address] 30on 12-24-2023 30 Normal [facility] 30 The patient is Moder ately Stable - Low risk of patient condition declining or worsening The patient's goals for the shift include comfort The clinical goals for the shift include safety Normal [facility] AFB CULTUREon 12-24-2023 AFB CULTURE No growth at 42 days Normal [facility] Comment on above: Performed By: #### L [id number] ####[facility] ([facility])[address] [facility] [place] [address] AFB STAIN No acid fast bacilli seen Normal [facility] Comment on above: Performed By: #### L [id number] ####[facility] ([facility])[address] [facility] [place] [address] AMYLASE, BODY FLUIDon 2023 AMYLASE (U/L) IN BODY FLUID <10 Normal [facility] Comment on above: Result Comment: The reference range and other method performance specifications have not been established for this test in fluids. the test result should be integrated into the clinical context for interpretation. Performed By: #### L [id number] ####[facility] ([facility] [facility] [place] [address] BODY FLUID CELL DIFFERENTIAL on 12-24-2023 BASOPHILS TOTAL PER COUNTED LEUKOCYTES IN BODY FLUID BY MANUAL COUNT 2 Normal [facility] Comment on above: Order Comment: Diffe rential performed on cytospin Performed By: #### L [id number] ####[facility] ([facility])[address] [place] [address] CELLS COUNTED TOTAL (#) IN BODY FLUID 100 [facility] Comment on above: Order Comment: Diffe rential performed on cytospin Performed By: #### L [id number] ####[facility] ([facility])[address] [place] [address] EOSINOPHILS TOTAL PER COUNTED LEUKOCYTES IN BODY FLUID BY MANUAL COUNT 4 [facility] Comment on above: Order Comment: Diffe rential performed on cytospin Performed By: #### L [id number] ####[facility] ([facility])[address] [place] [address] LYMPHOCYTES TOTAL PER COUNTED LEUKOCYTES IN BODY FLUID BY MANUAL COUNT 9 [facility] Comment on above: Order Comment: Diffe rential performed on cytospin Performed By: #### L [id number] ####[facility] ([facility])[address] [place] [address] MESOTHELIAL CELLS TOTAL PER COUNTED LEUKOCYTES IN BODY FLUID BY MANUAL COUN 5 [facility] Comment on above: Order Comment: Diffe rential performed on cytospin Performed By: #### L [id number] ####[facility] ([facility])[address] [place] [address] MONOCYTES+MACROPHAGES TOTAL PER COUNTED LEUKOCYTES IN BODY FLUID BY MANUAL [facility] Comment on above: Order Comment: Diffe rential performed on cytospin Performed By: #### L [id number] ####[facility] ([facility])[address] [place] [address] NEUTROPHILS TOTAL PER COUNTED LEUKOCYTES IN BODY FLUID BY MANUAL COUNT 80 [facility] Comment on above: Order Comment: Diffe rential performed on cytospin Performed By: #### L [id number] ####[facility] ([facility])[address] [place] [address] OTHER CELLS BODY FLUID (MANUAL) [facility] Comment on above: Order Comment: Diffe rential performed on cytospin Performed By: #### L [id number] ####[facility] ([facility])[address] [place] [address] BODY FLUID CULTUREon 024 Bacteria identified Cx Nom (Unsp spec) No growth at 5 days Normal [facility] Comment on above: Performed By: #### L [id number] ####[facility] ([facility])[address] [place] [address] GRAM STAIN RESULT Normal [facility] Comment on above: Result Comment: Poly morphonuclear leukocytesNo organisms seenCytocentrifuge sample Performed By: #### L [id number] ####[facility] ([facility])[address] [place] [address] CHOLESTEROL, BODY FLUIDon CHOLESTEROL (MG/DL) IN BODY FLUID 37 mg/dL Normal [facility] Comment on above: Performed By: #### L [id number] ####[facility] ([facility])[address] [place] [address] CONSULTon 12-24-2023 CONSULT Normal [facility] FUNGAL CULTUREon 12-24-2023 FUNGAL SMEAR No yeast or fungal elements seen Normal [facility] Comment on above: Performed By: #### L [id number] ####[facility] ([facility])[address] [place] [address] GLUCOSE, BODY FLUIDon 2023 GLUCOSE (MG/DL) IN BODY FLUID 88 mg/dL Normal [facility] Comment on above: Result Comment: The reference range and other method performance specifications have not been established for this test in fluids. the test result should be integrated into the clinical context for interpretation. Performed By: #### L [id number] ####[facility] ([facility])[address] [place] [address] GLUCOSE, RANDOMon 12-24-2023 Glucose [Mass/Vol] 121 mg/dL High 70-100 [facility] Comment on above: Performed By: #### L [id number] ####[facility] ([facility])[address] [place] [address] HEPATIC FUNCTION PANELon Albumin [Mass/Vol] 3.4 g/dL Low 3.5-5.7 [facility] Comment on above: Performed By: #### L [id number] ####[facility] ([facility])[address] [place] [address] ALP [Catalytic activity/Vol] 133 U/L High 34-104 [facility] Comment on above: Performed By: #### L [id number] ####[facility] ([facility])[address] [place] [place] [address] ALT [Catalytic activity/Vol] 22 U/L Normal 7-52 [facility] Comment on above: Performed By: #### L [id number] ####[facility] ([facility])[address] [place] [place] [address] AST [Catalytic activity/Vol] 28 U/L Normal 13-39 [facility] Comment on above: Performed By: #### L [id number] ####[facility] ([facility])[address] [place] [place] [address] Bilirubin [Mass/Vol] 0.4 mg/dL Normal 0.3-1.0 [facility] Comment on above: Performed By: #### L [id number] ####[facility] ([facility])[address] [place] [place] [address] Magnesium [Mass/Vol] 0.1 mg/dL Normal 0-0.2 [facility] Comment on above: Performed By: #### L [id number] ####[facility] ([facility])[address] [place] [address] Protein [Mass/Vol] 6.1 g/dL Normal 6.0-8.3 [facility] Comment on above: Performed By: #### L [id number] ####[facility] ([facility])[address] [place] [place] [address] LACTATE DEHYDROGENASEon 10-0 LACTATE DEHYDROGENASE (U/L) IN SER/PLAS BY LAC->PYR RXN 240 U/L Normal 140-271 [facility] Comment on above: Performed By: #### L [id number] ####[facility] ([facility]AKER)[address] [place] [address] LACTATE DEHYDROGENASE, BODY FLUIDon 12-24-2023 LACTATE DEHYDROGENASE (U/L) IN BODY FLUID BY LAC->PYR 756 U/L Normal [facility] Comment on above: Result Comment: The reference range and other method performance specifications have not been established for this test in fluids. the test result should be integrated into the clinical context for interpretation. Performed By: #### L [id number] ####[facility] ([facility]ER)[address] [place] [address] NON-DISC JOCKEY CYTOLOGY - CELLULAR EXAMon 12-24-2023 LAB AP CASE REPORT Normal [facility] Comment on above: Result Comment: Non- gynecologic Cytology Case: [id number] Provider: Rian Butts MD Collected: 12/24/2023 1626Ordering Location: [facility] Received: 12/25/2023 1238Pathologist: BRIANA Neirpecimen: Pleural fluid, left Performed By: #### L [id number] ####[facility] ([facility]ER)[address] [place] [address] LAB AP CLINICAL INFORMATION Normal [facility] Comment on above: Result Comment: Left pleural effusion Performed By: #### L [id number] ####[facility] ([facility]ER)[address] [place] [address] LAB AP GROSS DESCRIPTION Normal [facility] Comment on above: Result Comment: 400 mL cloudy, red fluid Performed By: #### L [id number] ####[facility] ([facility]ER)[address] [place] [address] LAB AP REPORT FINAL DIAGNOSIS NARRATIVE Normal [facility] Comment on above: Result Comment: A. P leural fluid, left: - Negative for malignancy. - Marked acute inflammation. Performed By: #### L [id number] ####[facility] ([facility]ER)[address] [place] [address] PATHOLOGY REVIEWon PATHOLOGY REVIEW Reviewed. Normal [facility] Comment on above: Result Comment: Elec tronically signed by Jarrod Sales MD on 12/25/23 at 2:30 PM. Performed By: #### L [id number] ####[facility] ([facility])[address] [place] [address] POCT GLUCOSE METER UNSOLICIT ED RESULTSon 12-24-2023 Glucose [Mass/Vol] 176 mg/dL High 70-105 [facility] Comment on above: Order Comment: Waive d Testing in the ED is performed under the ED CLIA certificate #[id number]. Result Comment: [email or web address] Performed By: #### L [id number] ####[facility] ([facility])[address] [place] [address] Glucose [Mass/Vol] 135 mg/dL High 70-105 [facility] Comment on above: Order Comment: Waive d Testing in the ED is performed under the ED CLIA certificate #[id number]. Result Comment: [email or web address] Performed By: #### L [id number] ####[facility] ([facility])[address] [place] [address] Glucose [Mass/Vol] 128 mg/dL High 70-105 [facility] Comment on above: Order Comment: Waive d Testing in the ED is performed under the ED CLIA certificate #[id number]. Result Comment: [email or web address] Performed By: #### L [id number] ####[facility] ([facility])[address] [place] [address] PROTEIN, BODY FLUIDon 2023 Protein (Body fld) [Mass/Vol] 3.6 g/dL Normal [facility] Comment on above: Result Comment: The reference range and other method performance specifications have not been established for this test in fluids. the test result should be integrated into the clinical context for interpretation. Performed By: #### L [id number] ####[facility] ([employer])[address] [place] [address] PROTIME-INRon 12-24-2023 INR IN PPP BY COAGULATION ASSAY 1.28 High 0.90-1.10 [facility] Comment on above: Result Comment: ACCC [...] CHEST 1995;108:[id number]. Performed By: #### L [id number] ####[facility] [employer])[address] [place] [address] PROTHROMBIN TIME (PT) IN PPP BY COAGULATION ASSAY 15.9 Seconds High 12.3-14.8 [facility] Comment on above: Performed By: #### L [id number] ####[facility] [employer])[address] [place] [address] TRIGLYCERIDES, BODY FLUIDon 12-24-2023 TRIGLYCERIDES (MG/DL) IN BODY FLUID 25 mg/dL Normal [facility] Comment on above: Performed By: #### L [id number] ####[facility] [employer])[address] [place] [address] VITAMIN Con 12-24-2023 VITAMIN C LEVEL 54 umol/L Normal 23-114 [facility] Comment on above: Result Comment: Rachael min C concentrations lower than 11 umol/L indicate deficiency.Concentrations between 11 and 23 umol/L are consistent with amoderate risk of deficiency due to inadequate tissue stores.Vitamin C concentration is reported as micromoles per liter(umol/L). To convert concentration to milligrams per deciliter(mg/dL), multiply the result by 0.0176.This test was developed and its performance characteristicsdetermined by [employer]. It has not been cleared orapproved by the [place] Food and Drug Administration. This test wasperformed in a CLIA certified laboratory and is intended forclinical purposes.Performed By: [employer] [place], [place] [address]Mcmamfucwc Director: Leeroy Shah MD, PhDCLIA Number: [id number] Performed By: #### L [id number] ####[facility] (BEAKER)[address] [place] [address] 30on 12-23-2023 30 Normal [facility] 30 Normal [facility] 30 [facility] 30 The patient is Moder ately Stable - Low risk of patient condition declining or worsening The patient's goals for the shift include comfort The clinical goals for the shift include safety Normal [facility] BASIC METABOLIC PANELon 10-0 Anion gap [Moles/Vol] 9 mmol/L Normal 7-20 [facility] Comment on above: Performed By: #### L [id number] ####[facility] ([facility]AKER)[address] [place] [address] Calcium [Mass/Vol] 7.9 mg/dL Low 8.6-10.3 [facility] Comment on above: Performed By: #### L [id number] ####[facility] (BEAKER)[address] [place] [address] Chloride [Moles/Vol] 105 mmol/L Normal 98-107 [facility] Comment on above: Performed By: #### L [id number] ####[facility] (BEAKER)[address] [place] [address] CO2 [Moles/Vol] 26 mmol/L Normal 21-31 [facility] Comment on above: Performed By: #### L [id number] ####[facility] ([facility])[address] [place] [place] [address] Creatinine [Mass/Vol] 0.71 mg/dL Normal 0.60-1.20 [facility] Comment on above: Performed By: #### L [id number] ####[facility] ([facility])[address] [place] [place] [address] GLOMERULAR FILTRATION RATE ML/MIN/1.73 SQ M.PREDICTED 96.1 mL/min/1.73m*2 Normal >60.0 [facility] Comment on above: Result Comment: [facility]???s estimated glomerular filtration rate (eGFR) will [...] of individuals. Performed By: #### L [id number] ####[facility] ([facility])[address] [place] [address] Glucose [Mass/Vol] 76 mg/dL Normal 70-100 [facility] Comment on above: Performed By: #### L [id number] ####[facility] ([facility])[address] [place] [address] Potassium [Moles/Vol] 4.4 mmol/L Normal 3.5-5.1 [facility] Comment on above: Performed By: #### L [id number] ####[facility] ([facility])[address] [place] [place] [address] Sodium [Moles/Vol] 136 mmol/L Normal 136-145 [facility] Comment on above: Performed By: #### L [id number] ####[facility] ([facility])[address] [place] [address] Urea nitrogen [Mass/Vol] 17 mg/dL Normal 7-25 [facility] Comment on above: Performed By: #### L [id number] ####[facility] ([facility])[address] [place] [address] UREA NITROGEN/CREATININE (MASS RATIO) IN SER/PLAS 23.9 Normal [facility] Comment on above: Performed By: #### L [id number] ####[facility] ([facility])[address] [place] [address] CBCon 12-23-2023 Erythrocyte distribution width (RBC) [Ratio] 15.7 % High 11.5-15.0 [facility] Comment on above: Performed By: #### L [id number] ####[facility] ([facility])[address] [place] [place] [address] ERYTHROCYTE MEAN CORPUSCULAR HEMOGLOBIN CONCENTRATION (G/DL) BY AUTOMATED 31.6 g/dL Low 32.0-35.0 [facility] Comment on above: Performed By: #### L [id number] ####[facility] ([facility])[address] [place] [address] Hematocrit (Bld) [Volume fraction] 22.5 % Low 36.0-48.0 [facility] Comment on above: Performed By: #### L [id number] ####[facility] ([facility])[address] [place] [place] [address] Hemoglobin (Bld) [Mass/Vol] 7.1 g/dL Low 12.0-15.0 [facility] Comment on above: Performed By: #### L [id number] ####[facility] ([facility] [place] [place] [address] MCH (RBC) [Entitic mass] 32.0 pg Normal 27.0-33.0 [facility] Comment on above: Performed By: #### L [id number] ####[facility] ([facility] [place] [place] [address] MCV (RBC) [Entitic vol] 101.4 fL High 82.0-98.0 [facility] Comment on above: Performed By: #### L [id number] ####[facility] ([facility])[address] [place] [address] PLATELETS (10*3/UL) IN BLOOD AUTOMATED COUNT 355 10*3/uL Normal 150-400 [facility] Comment on above: Performed By: #### L [id number] ####[facility] ([facility])[address] [place] [address] RBC (Bld) [#/Vol] 2.22 10*6/uL Low 3.80-5.00 [facility] Comment on above: Performed By: #### L [id number] ####[facility] ([facility])[address] [place] [address] WBC (Bld) [#/Vol] 8.18 10*3/uL Normal 4.00-10.60 [facility] Comment on above: Performed By: #### L [id number] ####[facility] ([facility])[address] [place] [address] CT CHEST WO IV CONTRASTon CT CHEST WO IV CONTRAST Invalid Interpretation Code [facility] MAGNESIUMon 12-23-2023 Magnesium [Mass/Vol] 2.4 mg/dL Normal 1.9-2.7 [facility] Comment on above: Performed By: #### L [id number] ####[facility] ([facility])[address] [place] [address] POCT GLUCOSE METER UNSOLICIT ED RESULTSon 12-23-2023 Glucose [Mass/Vol] 143 mg/dL High 70-105 [facility] Comment on above: Order Comment: Waive d Testing in the ED is performed under the ED CLIA certificate #[id number]. Result Comment: larry morrow Performed By: #### L [id number] ####[facility] ([facility])[address] [place] [address] Glucose [Mass/Vol] 159 mg/dL High 70-105 [facility] Comment on above: Order Comment: Waive d Testing in the ED is performed under the ED CLIA certificate #[id number]. Result Comment: [email or web address] Performed By: #### L [id number] ####[facility] ([facility])[address] [facility] [place] [address] Glucose [Mass/Vol] 130 mg/dL High 70-105 [facility] Comment on above: Order Comment: Waive d Testing in the ED is performed under the ED CLIA certificate #[id number]. Result Comment: [email or web address] Performed By: #### L [id number] ####[facility] ([facility])[address] [facility] [place] [address] Glucose [Mass/Vol] 118 mg/dL High 70-105 [facility] Comment on above: Order Comment: Waive d Testing in the ED is performed under the ED CLIA certificate #[id number]. Result Comment: [email or web address] Performed By: #### L [id number] ####[facility] ([facility])[address] [facility] [place] [address] VITAMIN Con 12-23-2023 VITAMIN C LEVEL 43 umol/L Normal 23-114 [facility] Comment on above: Result Comment: Rachael min C concentrations lower than 11 umol/L indicate deficiency.Concentrations between 11 and 23 umol/L are consistent with amoderate risk of deficiency due to inadequate tissue stores.Vitamin C concentration is reported as micromoles per liter(umol/L). To convert concentration to milligrams per deciliter(mg/dL), multiply the result by 0.0176.This test was developed and its performance characteristicsdetermined by [employer]. It has not been cleared orapproved by the [place] Food and Drug Administration. This test wasperformed in a CLIA certified laboratory and is intended forclinical purposes.Performed By: [employer] [place] [id number] Director: Leeroy Shah MD, PhDCLIA Number: [id number] Performed By: #### L [id number] ####[facility] ([facility])[address] [place] [address] 30on 09-30-2024 30 Normal [facility] 30 Normal [facility] 30 The patient is Moder ately Stable - Low risk of patient condition declining or worsening The patient's goals for the shift include comfort The clinical goals for the shift include safety Normal [facility] BASIC METABOLIC PANELon 09-3 Anion gap [Moles/Vol] 11 mmol/L Normal 7-20 [facility] Comment on above: Performed By: #### L [id number] ####[facility] ([facility])[address] [place] [address] Calcium [Mass/Vol] 8.2 mg/dL Low 8.6-10.3 [facility] Comment on above: Performed By: #### L [id number] ####[facility] (BEAKER)[address] [place] [address] Chloride [Moles/Vol] 103 mmol/L Normal 98-107 [facility] Comment on above: Performed By: #### L [id number] ####[facility] (BEAKER)[address] [place] [address] CO2 [Moles/Vol] 28 mmol/L Normal 21-31 [facility] Comment on above: Performed By: #### L [id number] ####[facility] (BEAKER)[address] [place] [address] Creatinine [Mass/Vol] 0.71 mg/dL Normal 0.60-1.20 [facility] Comment on above: Performed By: #### L [id number] ####[facility] (BEAKER)[address] [place] [address] GLOMERULAR FILTRATION RATE ML/MIN/1.73 SQ M.PREDICTED 96.1 mL/min/1.73m*2 Normal >60.0 [facility] Comment on above: Result Comment: [facility]???s estimated glomerular filtration rate (eGFR) will [...] of individuals. Performed By: #### L [id number] ####[facility] ([facility] [place] [address] Glucose [Mass/Vol] 103 mg/dL High 70-100 [facility] Comment on above: Performed By: #### L [id number] ####[facility] ([facility])[address] [place] [address] Potassium [Moles/Vol] 3.7 mmol/L Normal 3.5-5.1 [facility] Comment on above: Performed By: #### L [id number] ####[facility] ([facility])[address] [place] [address] Sodium [Moles/Vol] 138 mmol/L Normal 136-145 [facility] Comment on above: Performed By: #### L [id number] ####[facility] ([facility])[address] [place] [address] Urea nitrogen [Mass/Vol] 16 mg/dL Normal 7-25 [facility] Comment on above: Performed By: #### L [id number] ####[facility] ([facility])[address] [place] [address] UREA NITROGEN/CREATININE (MASS RATIO) IN SER/PLAS 22.5 Normal [facility] Comment on above: Performed By: #### L [id number] ####[facility] ([facility])[address] [place] [address] CBCon 12-22-2023 Erythrocyte distribution width (RBC) [Ratio] 14.5 % Normal 11.5-15.0 [facility] Comment on above: Performed By: #### L [id number] ####[facility] ([facility])[address] [place] [address] ERYTHROCYTE MEAN CORPUSCULAR HEMOGLOBIN CONCENTRATION (G/DL) BY AUTOMATED 31.5 g/dL Low 32.0-35.0 [facility] Comment on above: Performed By: #### L [id number] ####[facility] ([facility])[address] [place] [place] [address] Hematocrit (Bld) [Volume fraction] 25.1 % Low 36.0-48.0 [facility] Comment on above: Performed By: #### L [id number] ####[facility] ([facility])[address] [place] [place] [address] Hemoglobin (Bld) [Mass/Vol] 7.9 g/dL Low 12.0-15.0 [facility] Comment on above: Performed By: #### L [id number] ####[facility] ([facility])[address] [place] [address] MCH (RBC) [Entitic mass] 32.1 pg Normal 27.0-33.0 [facility] Comment on above: Performed By: #### L [id number] ####[facility] ([facility])[address] [place] [address] MCV (RBC) [Entitic vol] 102.0 fL High 82.0-98.0 [facility] Comment on above: Performed By: #### L [id number] ####[facility] ([facility])[address] [place] [place] [address] PLATELETS (10*3/UL) IN BLOOD AUTOMATED COUNT 338 10*3/uL Normal 150-400 [facility] Comment on above: Performed By: #### L [id number] ####[facility] ([facility])[address] [place], [place] [address] RBC (Bld) [#/Vol] 2.46 10*6/uL Low 3.80-5.00 [facility] Comment on above: Performed By: #### L [id number] ####[facility] ([facility])[address] [place] [address] WBC (Bld) [#/Vol] 7.31 10*3/uL Normal 4.00-10.60 [facility] Comment on above: Performed By: #### L [id number] ####[facility] ([facility])[address] [place] [address] MAGNESIUMon 12-22-2023 Magnesium [Mass/Vol] 2.2 mg/dL Normal 1.9-2.7 [facility] Comment on above: Performed By: #### L [id number] ####[facility] ([facility])[address] [place] [address] POCT GLUCOSE METER UNSOLICIT ED RESULTSon 12-22-2023 Glucose [Mass/Vol] 158 mg/dL High 70-105 [facility] Comment on above: Order Comment: Waive d Testing in the ED is performed under the ED CLIA certificate #[id number]. Result Comment: [email or web address] Performed By: #### L [id number] ####[facility] ([facility])[address] [place] [address] Glucose [Mass/Vol] 129 mg/dL High 70-105 [facility] Comment on above: Order Comment: Waive d Testing in the ED is performed under the ED CLIA certificate #[id number]. Result Comment: bflo od Performed By: #### L [id number] ####[facility] ([employer])[address] [place] [address] Glucose [Mass/Vol] 175 mg/dL High 70-105 [facility] Comment on above: Order Comment: Waive d Testing in the ED is performed under the ED CLIA certificate #[id number]. Result Comment: [email or web address] Performed By: #### L [id number] ####[facility] ([employer])[address] [place] [address] Glucose [Mass/Vol] 100 mg/dL Normal 70-105 [facility] Comment on above: Order Comment: Waive d Testing in the ED is performed under the ED CLIA certificate #[id number]. Result Comment: [email or web address] Performed By: #### L [id number] ####[facility] ([employer])[address] [place] [address] VITAMIN Con 12-22-2023 VITAMIN C LEVEL 35 umol/L Normal 23-114 [facility] Comment on above: Result Comment: Rachael min C concentrations lower than 11 umol/L indicate deficiency.Concentrations between 11 and 23 umol/L are consistent with amoderate risk of deficiency due to inadequate tissue stores.Vitamin C concentration is reported as micromoles per liter(umol/L). To convert concentration to milligrams per deciliter(mg/dL), multiply the result by 0.0176.This test was developed and its performance characteristicsdetermined by [employer]. It has not been cleared orapproved by the [place] Food and Drug Administration. This test wasperformed in a CLIA certified laboratory and is intended forclinical purposes.Performed By: [facility] [place], [place] [address]Upygctsolt Director: Leeroy Shah MD, PhDCLIA Number: [id number] Performed By: #### L [id number] ####[facility] ([facility])[address] [place] [address] 30on 12-21-2023 30 Normal [facility] 30 Normal [facility] BASIC METABOLIC PANELon 11-23 Anion gap [Moles/Vol] 11 mmol/L Normal 7-20 [facility] Comment on above: Performed By: #### L [id number] ####[facility] ([facility])[address] [place] [address] Calcium [Mass/Vol] 8.0 mg/dL Low 8.6-10.3 [facility] Comment on above: Performed By: #### L [id number] ####[facility] ([facility])[address] [place] [address] Chloride [Moles/Vol] 104 mmol/L Normal 98-107 [facility] Comment on above: Performed By: #### L [id number] ####[facility] ([facility])[address] [place] [address] CO2 [Moles/Vol] 26 mmol/L Normal 21-31 [facility] Comment on above: Performed By: #### L [id number] ####[facility] ([facility])[address] [place] [place] [address] Creatinine [Mass/Vol] 0.62 mg/dL Normal 0.60-1.20 [facility] Comment on above: Performed By: #### L [id number] ####[facility] ([facility])[address] [place] [address] GLOMERULAR FILTRATION RATE ML/MIN/1.73 SQ M.PREDICTED 100.6 mL/min/1.73m*2 Normal >60.0 [facility] Comment on above: Result Comment: [facility]???s estimated glomerular filtration rate (eGFR) will [...] of individuals. Performed By: #### L [id number] ####[facility] ([facility])[address] [place] [address] Glucose [Mass/Vol] 93 mg/dL Normal 70-100 [facility] Comment on above: Performed By: #### L [id number] ####[facility] ([facility])[address] [place] [address] Potassium [Moles/Vol] 4.2 mmol/L Normal 3.5-5.1 [facility] Comment on above: Performed By: #### L [id number] ####[facility] ([facility])[address] [place] [place] [address] Sodium [Moles/Vol] 137 mmol/L Normal 136-145 [facility] Comment on above: Performed By: #### L [id number] ####[facility] ([facility])[address] [place] [place] [address] Urea nitrogen [Mass/Vol] 17 mg/dL Normal 7-25 [facility] Comment on above: Performed By: #### L [id number] ####[facility] ([facility])[address] [place] [address] UREA NITROGEN/CREATININE (MASS RATIO) IN SER/PLAS 27.4 Normal [facility] Comment on above: Performed By: #### L [id number] ####[facility] ([facility])[address] [place] [address] CBCon 12-21-2023 Erythrocyte distribution width (RBC) [Ratio] 14.2 % Normal 11.5-15.0 [facility] Comment on above: Performed By: #### L [id number] ####[facility] ([facility])[address] [place] [address] ERYTHROCYTE MEAN CORPUSCULAR HEMOGLOBIN CONCENTRATION (G/DL) BY AUTOMATED 31.1 g/dL Low 32.0-35.0 [facility] Comment on above: Performed By: #### L [id number] ####[facility] ([facility])[address] [place] [place] [address] Hematocrit (Bld) [Volume fraction] 21.9 % Low 36.0-48.0 [facility] Comment on above: Performed By: #### L [id number] ####[facility] ([facility])[address] [place] [address] Hemoglobin (Bld) [Mass/Vol] 6.8 g/dL Low 12.0-15.0 [facility] Comment on above: Performed By: #### L [id number] ####[facility] ([facility])[address] [place] [place] [address] MCH (RBC) [Entitic mass] 31.1 pg Normal 27.0-33.0 [facility] Comment on above: Performed By: #### L [id number] ####[facility] ([facility])[address] [place] [place] [address] MCV (RBC) [Entitic vol] 100.0 fL High 82.0-98.0 [facility] Comment on above: Performed By: #### L [id number] ####[facility] ([facility])[address] [place] [place] [address] PLATELETS (10*3/UL) IN BLOOD AUTOMATED COUNT 300 10*3/uL Normal 150-400 [facility] Comment on above: Performed By: #### L [id number] ####[facility] ([facility])[address] [place] [place], [place] [address] RBC (Bld) [#/Vol] 2.19 10*6/uL Low 3.80-5.00 [facility] Comment on above: Performed By: #### L [id number] ####[facility] ([facility])[address] [place] [place] [address] WBC (Bld) [#/Vol] 6.04 10*3/uL Normal 4.00-10.60 [facility] Comment on above: Performed By: #### L [id number] ####[facility] ([facility])[address] [place] [place] [address] MAGNESIUMon 12-21-2023 Magnesium [Mass/Vol] 2.3 mg/dL Normal 1.9-2.7 [facility] Comment on above: Performed By: #### L [id number] ####[facility] ([facility])[address] [place] [address] POCT GLUCOSE METER UNSOLICIT ED RESULTSon 12-21-2023 Glucose [Mass/Vol] 189 mg/dL High 70-105 [facility] Comment on above: Order Comment: Waive d Testing in the ED is performed under the ED CLIA certificate #[id number]. Result Comment: [email or web address] Performed By: #### L [id number] ####[facility] ([facility])[address] [place] [place] [address] Glucose [Mass/Vol] 85 mg/dL Normal 70-105 [facility] Comment on above: Order Comment: Waive d Testing in the ED is performed under the ED CLIA certificate #[id number]. Result Comment: [email or web address] Performed By: #### L [id number] ####[facility] ([facility])[address] [place] [address] Glucose [Mass/Vol] 229 mg/dL High 70-105 [facility] Comment on above: Order Comment: Waive d Testing in the ED is performed under the ED CLIA certificate #[id number]. Result Comment: [email or web address] Performed By: #### L [id number] ####[facility] ([facility])[address] [place] [address] Glucose [Mass/Vol] 142 mg/dL High 70-105 [facility] Comment on above: Order Comment: Waive d Testing in the ED is performed under the ED CLIA certificate #[id number]. Result Comment: [email or web address] Performed By: #### L [id number] ####[facility] ([facility])[address] [facility] [place] [address] VITAMIN Con 12-21-2023 VITAMIN C LEVEL 24 umol/L Normal 23-114 [facility] Comment on above: Result Comment: Rachael min C concentrations lower than 11 umol/L indicate deficiency.Concentrations between 11 and 23 umol/L are consistent with amoderate risk of deficiency due to inadequate tissue stores.Vitamin C concentration is reported as micromoles per liter(umol/L). To convert concentration to milligrams per deciliter(mg/dL), multiply the result by 0.0176.This test was developed and its performance characteristicsdetermined by [employer]. It has not been cleared orapproved by the [place] Food and Drug Administration. This test wasperformed in a CLIA certified laboratory and is intended forclinical purposes.Performed By: [facility], [place] [address]Gmydutomnu Director: Leeroy Shah MD, PhDCLIA Number: [id number] Performed By: #### L [id number] ####[facility] ([facility])[address] [place] [address] MAGNESIUMon 12-20-2023 Magnesium [Mass/Vol] 2.2 mg/dL Normal 1.9-2.7 [facility] Comment on above: Performed By: #### L [id number] ####[facility] ([employer])[address] [place] [address] POCT GLUCOSE METER UNSOLICIT ED RESULTSon 12-20-2023 Glucose [Mass/Vol] 140 mg/dL High 70-105 [facility] Comment on above: Order Comment: Waive d Testing in the ED is performed under the ED CLIA certificate #[id number]. Result Comment: [email or web address] Performed By: #### L [id number] ####[facility] ([facility])[address] [place] [address] Glucose [Mass/Vol] 152 mg/dL High 70-105 [facility] Comment on above: Order Comment: Waive d Testing in the ED is performed under the ED CLIA certificate #[id number]. Result Comment: [email or web address] dic Performed By: #### L [id number] ####[facility] ([employer])[address] [place] [address] Glucose [Mass/Vol] 193 mg/dL High 70-105 [facility] Comment on above: Order Comment: Waive d Testing in the ED is performed under the ED CLIA certificate #[id number]. Result Comment: [email or web address] dic Performed By: #### L [id number] ####[facility] ([employer])[address] [place] [address] Glucose [Mass/Vol] 119 mg/dL High 70-105 [facility] Comment on above: Order Comment: Waive d Testing in the ED is performed under the ED CLIA certificate #[id number]. Result Comment: dcun dic Performed By: #### L [id number] ####[facility] ([facility])[address] [place] [address] 30on 12-19-2023 30 The patient is Moder ately Stable - Low risk of patient condition declining or worsening The patient's goals for the shift include comfort The clinical goals for the shift include safety [facility] 30 Normal [facility] 30 Normal [facility] 30 Normal [facility] BASIC METABOLIC PANELon 09-2 Anion gap [Moles/Vol] 7 mmol/L Normal 7-20 [facility] Comment on above: Performed By: #### L [id number] ####[facility] ([facility])[address] [place] [place] [address] Calcium [Mass/Vol] 8.1 mg/dL Low 8.6-10.3 [facility] Comment on above: Performed By: #### L [id number] ####[facility] ([facility])[address] [place] [address] Chloride [Moles/Vol] 103 mmol/L Normal 98-107 [facility] Comment on above: Performed By: #### L [id number] ####[facility] ([facility])[address] [place] [address] CO2 [Moles/Vol] 27 mmol/L Normal 21-31 [facility] Comment on above: Performed By: #### L [id number] ####[facility] ([facility])[address] [place] [address] Creatinine [Mass/Vol] 0.65 mg/dL Normal 0.60-1.20 [facility] Comment on above: Performed By: #### L [id number] ####[facility] ([facility])[address] [place] [place] [address] GLOMERULAR FILTRATION RATE ML/MIN/1.73 SQ M.PREDICTED 99.5 mL/min/1.73m*2 Normal >60.0 [facility] Comment on above: Result Comment: [facility]???s estimated glomerular filtration rate (eGFR) will [...] of individuals. Performed By: #### L [id number] ####[facility] ([facility])[address] [place] [place] [address] Glucose [Mass/Vol] 116 mg/dL High 70-100 [facility] Comment on above: Performed By: #### L [id number] ####[facility] ([facility])[address] [place] [place] [address] Potassium [Moles/Vol] 4.1 mmol/L Normal 3.5-5.1 [facility] Comment on above: Performed By: #### L [id number] ####[facility] ([facility])[address] [place] [place], [place] [address] Sodium [Moles/Vol] 133 mmol/L Low 136-145 [facility] Comment on above: Performed By: #### L [id number] ####[facility] ([facility])[address] [facility] [place] [address] Urea nitrogen [Mass/Vol] 20 mg/dL Normal 7-25 [facility] Comment on above: Performed By: #### L [id number] ####[facility] ([facility])[address] [place] [place] [address] UREA NITROGEN/CREATININE (MASS RATIO) IN SER/PLAS 30.8 Normal [facility] Comment on above: Performed By: #### L [id number] ####[facility] ([facility])[address] [place] [address] CBCon 12-19-2023 Erythrocyte distribution width (RBC) [Ratio] 13.2 % Normal 11.5-15.0 [facility] Comment on above: Performed By: #### L [id number] ####[facility] ([facility])[address] [facility] [place] [address] ERYTHROCYTE MEAN CORPUSCULAR HEMOGLOBIN CONCENTRATION (G/DL) BY AUTOMATED 32.4 g/dL Normal 32.0-35.0 [facility] Comment on above: Performed By: #### L [id number] ####[facility] ([facility])[address] [place] [place] [address] Hematocrit (Bld) [Volume fraction] 21.6 % Low 36.0-48.0 [facility] Comment on above: Performed By: #### L [id number] ####[facility] ([facility])[address] [place] [address] Hemoglobin (Bld) [Mass/Vol] 7.0 g/dL Low 12.0-15.0 [facility] Comment on above: Performed By: #### L [id number] ####[facility] ([facility])[address] [place] [address] MCH (RBC) [Entitic mass] 31.5 pg Normal 27.0-33.0 [facility] Comment on above: Performed By: #### L [id number] ####[facility] ([facility])[address] [place] [place], [place] [address] MCV (RBC) [Entitic vol] 97.3 fL Normal 82.0-98.0 [facility] Comment on above: Performed By: #### L [id number] ####[facility] ([facility])[address] [place] [place], [place] [address] PLATELETS (10*3/UL) IN BLOOD AUTOMATED COUNT 183 10*3/uL Normal 150-400 [facility] Comment on above: Performed By: #### L [id number] ####[facility] ([facility])[address] [place] [place], [place] [address] RBC (Bld) [#/Vol] 2.22 10*6/uL Low 3.80-5.00 [facility] Comment on above: Performed By: #### L [id number] ####[facility] ([facility])[address] [place] [place] [address] WBC (Bld) [#/Vol] 6.45 10*3/uL Normal 4.00-10.60 [facility] Comment on above: Performed By: #### L [id number] ####[facility] ([facility])[address] [place] [place], [place] [address] MAGNESIUMon 12-19-2023 Magnesium [Mass/Vol] 2.1 mg/dL Normal 1.9-2.7 [facility] Comment on above: Performed By: #### L [id number] ####[facility] ([facility])[address] [place] [place] [address] POCT GLUCOSE METER UNSOLICIT ED RESULTSon 12-19-2023 Glucose [Mass/Vol] 181 mg/dL High 70-105 [facility] Comment on above: Order Comment: Waive d Testing in the ED is performed under the ED CLIA certificate #[id number]. Result Comment: [email or web address] Performed By: #### L [id number] ####[facility] ([facility])[address] [place] [place] [address] Glucose [Mass/Vol] 148 mg/dL High 70-105 [facility] Comment on above: Order Comment: Waive d Testing in the ED is performed under the ED CLIA certificate #[id number]. Result Comment: bflo od Performed By: #### L [id number] ####[facility] ([facility])[address] [place] [place], [place] [address] Glucose [Mass/Vol] 204 mg/dL High 70-105 [facility] Comment on above: Order Comment: Waive d Testing in the ED is performed under the ED CLIA certificate #[id number]. Result Comment: bflo od Performed By: #### L [id number] ####[facility] ([facility])[address] [place] [place], [place] [address] Glucose [Mass/Vol] 150 mg/dL High 70-105 [facility] Comment on above: Order Comment: Waive d Testing in the ED is performed under the ED CLIA certificate #[id number]. Result Comment: bflo od Performed By: #### L [id number] ####[facility] ([facility])[address] [place] [place] [address] 30on 12-18-2023 30 [facility] 30 [facility] ALBUMINon 12-18-2023 Albumin [Mass/Vol] 3.2 g/dL Low 3.5-5.7 [facility] Comment on above: Performed By: #### L [id number] ####[facility] ([facility])[address] [place] [place], [place] [address] BASIC METABOLIC PANELon 11-23 Anion gap [Moles/Vol] 7 mmol/L Normal 7-20 [facility] Comment on above: Performed By: #### L [id number] ####[facility] ([facility])[address] [place] [place] [address] Calcium [Mass/Vol] 8.4 mg/dL Low 8.6-10.3 [facility] Comment on above: Performed By: #### L [id number] ####[facility] ([facility])[address] [place] [place] [address] Chloride [Moles/Vol] 103 mmol/L Normal 98-107 [facility] Comment on above: Performed By: #### L [id number] ####[facility] ([facility])[address] [place] [place] [address] CO2 [Moles/Vol] 27 mmol/L Normal 21-31 [facility] Comment on above: Performed By: #### L [id number] ####[facility] ([facility])[address] [place] [place] [address] Creatinine [Mass/Vol] 0.72 mg/dL Normal 0.60-1.20 [facility] Comment on above: Performed By: #### L [id number] ####[facility] ([facility])[address] [place] [address] GLOMERULAR FILTRATION RATE ML/MIN/1.73 SQ M.PREDICTED 94.5 mL/min/1.73m*2 Normal >60.0 [facility] Comment on above: Result Comment: [facility]???s estimated glomerular filtration rate (eGFR) will [...] of individuals. Performed By: #### L [id number] ####[facility] ([facility])[address] [place] [address] Glucose [Mass/Vol] 122 mg/dL High 70-100 [facility] Comment on above: Performed By: #### L [id number] ####[facility] ([facility])[address] [place] [address] Potassium [Moles/Vol] 4.2 mmol/L Normal 3.5-5.1 [facility] Comment on above: Performed By: #### L [id number] ####[facility] ([facility])[address] [place] [address] Sodium [Moles/Vol] 133 mmol/L Low 136-145 [facility] Comment on above: Performed By: #### L [id number] ####[facility] ([facility])[address] [place] [address] Urea nitrogen [Mass/Vol] 20 mg/dL Normal 7-25 [facility] Comment on above: Performed By: #### L [id number] ####[facility] ([facility])[address] [place] [address] UREA NITROGEN/CREATININE (MASS RATIO) IN SER/PLAS 27.8 Normal [facility] Comment on above: Performed By: #### L [id number] ####[facility] ([facility])[address] [place] [address] CBCon 12-18-2023 Erythrocyte distribution width (RBC) [Ratio] 13.1 % Normal 11.5-15.0 [facility] Comment on above: Performed By: #### L [id number] ####[facility] ([facility])[address] [place] [address] ERYTHROCYTE MEAN CORPUSCULAR HEMOGLOBIN CONCENTRATION (G/DL) BY AUTOMATED 32.8 g/dL Normal 32.0-35.0 [facility] Comment on above: Performed By: #### L [id number] ####[facility] ([facility])[address] [place] [address] Hematocrit (Bld) [Volume fraction] 22.9 % Low 36.0-48.0 [facility] Comment on above: Performed By: #### L [id number] ####[facility] ([facility])[address] [place] [address] Hemoglobin (Bld) [Mass/Vol] 7.5 g/dL Low 12.0-15.0 [facility] Comment on above: Performed By: #### L [id number] ####[facility] ([facility])[address] [place] [address] MCH (RBC) [Entitic mass] 31.5 pg Normal 27.0-33.0 [facility] Comment on above: Performed By: #### L [id number] ####[facility] ([facility])[address] [place] [address] MCV (RBC) [Entitic vol] 96.2 fL Normal 82.0-98.0 [facility] Comment on above: Performed By: #### L [id number] ####[facility] ([facility])[address] [place] [place] [address] PLATELETS (10*3/UL) IN BLOOD AUTOMATED COUNT 161 10*3/uL Normal 150-400 [facility] Comment on above: Performed By: #### L [id number] ####[facility] ([facility])[address] [place] [address] RBC (Bld) [#/Vol] 2.38 10*6/uL Low 3.80-5.00 [facility] Comment on above: Performed By: #### L [id number] ####[facility] ([facility])[address] [place] [address] WBC (Bld) [#/Vol] 8.15 10*3/uL Normal 4.00-10.60 [facility] Comment on above: Performed By: #### L [id number] ####[facility] ([facility] [place] [address] CT CHEST WO IV CONTRASTon CT CHEST WO IV CONTRAST Invalid Interpretation Code [facility] IRON AND TIBCon 12-18-2023 IRON (UG/DL) IN SER/PLAS 21 ug/dL Low 50-212 [facility] Comment on above: Performed By: #### L [id number] ####[facility] ([facility])[address] [place] [address] IRON BINDING CAPACITY (UG/DL) IN SER/PLAS 187 ug/dL Low 250-450 [facility] Comment on above: Performed By: #### L [id number] ####[facility] ([facility])[address] [place] [address] IRON BINDING CAPACITY.UNSATURATED (UG/DL) IN SER/PLAS 166.0 ug/dL Normal 155.0-355.0 [facility] Comment on above: Performed By: #### L [id number] ####[facility] ([facility])[address] [place] [address] IRON SATURATION (%) IN SER/PLAS 11 % Low 20-50 [facility] Comment on above: Performed By: #### L [id number] ####[facility] ([facility])[address] [place] [address] MAGNESIUMon 12-18-2023 Magnesium [Mass/Vol] 2.0 mg/dL Normal 1.9-2.7 [facility] Comment on above: Performed By: #### L [id number] ####[facility] ([facility])[address] [place] [address] NURSNOTEon 12-18-2023 NURSNOTE Normal [facility] NURSNOTE Normal [facility] NURSNOTE Normal [facility] POCT GLUCOSE METER UNSOLICIT ED RESULTSon 12-18-2023 Glucose [Mass/Vol] 138 mg/dL High 70-105 [facility] Comment on above: Order Comment: Waive d Testing in the ED is performed under the ED CLIA certificate #[id number]. Result Comment: larry louiei Performed By: #### L [id number] ####[facility] ([facility])[address] [place] [address] Glucose [Mass/Vol] 163 mg/dL High 70-105 [facility] Comment on above: Order Comment: Waive d Testing in the ED is performed under the ED CLIA certificate #[id number]. Result Comment: [email or web address] [email or web address] Performed By: #### L [id number] ####[facility] ([employer])[address] [place] [address] Glucose [Mass/Vol] 118 mg/dL High 70-105 [facility] Comment on above: Order Comment: Waive d Testing in the ED is performed under the ED CLIA certificate #[id number]. Result Comment: [email or web address] [email or web address] Performed By: #### L [id number] ####[facility] ([employer])[address] [place] [address] Glucose [Mass/Vol] 160 mg/dL High 70-105 [facility] Comment on above: Order Comment: Waive d Testing in the ED is performed under the ED CLIA certificate #[id number]. Result Comment: [email or web address] Performed By: #### L [id number] ####[facility] ([employer])[address] [place] [address] PROCALCITONIN TESTon 024 PROCALCITONIN IN BLOOD 0.22 ng/mL High 0.00-0.[address] [facility] Comment on above: Result Comment: Susp [...] and initial PCT<0.5ng/mL Performed By: #### L [id number] ####[facility] ([facility])[address] [facility] [place] [address] TSHon 12-18-2023 THYROTROPIN (MIU/L) IN SER/PLAS BY DETECTION LIMIT <= 0.05 MIU/L 5.49 mIU/L Normal 0.34-5.60 [facility] Comment on above: Performed By: #### L [id number] ####[facility] ([facility])[address] [place] [address] 30on 12-17-2023 30 Normal [facility] BASIC METABOLIC PANELon 11-23 Anion gap [Moles/Vol] 8 mmol/L Normal 7-20 [facility] Comment on above: Performed By: #### L [id number] ####[facility] ([facility])[address] [facility] [place] [address] Calcium [Mass/Vol] 8.5 mg/dL Low 8.6-10.3 [facility] Comment on above: Performed By: #### L [id number] ####[facility] ([facility])[address] [facility] [place] [address] Chloride [Moles/Vol] 104 mmol/L Normal 98-107 [facility] Comment on above: Performed By: #### L [id number] ####[facility] ([facility])[address] [place] [place] [address] CO2 [Moles/Vol] 28 mmol/L Normal 21-31 [facility] Comment on above: Performed By: #### L [id number] ####[facility] ([facility])[address] [place] [address] Creatinine [Mass/Vol] 0.68 mg/dL Normal 0.60-1.20 [facility] Comment on above: Performed By: #### L [id number] ####[facility] ([facility])[address] [place] [address] GLOMERULAR FILTRATION RATE ML/MIN/1.73 SQ M.PREDICTED 98.4 mL/min/1.73m*2 Normal >60.0 [facility] Comment on above: Result Comment: [facility]???s estimated glomerular filtration rate (eGFR) will [...] of individuals. Performed By: #### L [id number] ####[facility] ([facility])[address] [place] [place] [address] Glucose [Mass/Vol] 110 mg/dL High 70-100 [facility] Comment on above: Performed By: #### L [id number] ####[facility] ([facility])[address] [place] [place] [address] Potassium [Moles/Vol] 3.4 mmol/L Low 3.5-5.1 [facility] Comment on above: Performed By: #### L [id number] ####[facility] ([facility])[address] [place] [place] [address] Sodium [Moles/Vol] 137 mmol/L Normal 136-145 [facility] Comment on above: Performed By: #### L [id number] ####[facility] ([facility])[address] [place] [place] [address] Urea nitrogen [Mass/Vol] 15 mg/dL Normal 7-25 [facility] Comment on above: Performed By: #### L [id number] ####[facility] ([facility])[address] [place] [address] UREA NITROGEN/CREATININE (MASS RATIO) IN SER/PLAS 22.1 Normal [facility] Comment on above: Performed By: #### L [id number] ####[facility] ([facility])[address] [place] [address] CBCon 12-17-2023 Erythrocyte distribution width (RBC) [Ratio] 13.0 % Normal 11.5-15.0 [facility] Comment on above: Performed By: #### L [id number] ####[facility] ([facility])[address] [place] [address] ERYTHROCYTE MEAN CORPUSCULAR HEMOGLOBIN CONCENTRATION (G/DL) BY AUTOMATED 33.5 g/dL Normal 32.0-35.0 [facility] Comment on above: Performed By: #### L [id number] ####[facility] ([facility])[address] [place] [address] Hematocrit (Bld) [Volume fraction] 23.0 % Low 36.0-48.0 [facility] Comment on above: Performed By: #### L [id number] ####[facility] ([facility])[address] [place] [address] Hemoglobin (Bld) [Mass/Vol] 7.7 g/dL Low 12.0-15.0 [facility] Comment on above: Performed By: #### L [id number] ####[facility] ([facility])[address] [place] [address] MCH (RBC) [Entitic mass] 31.3 pg Normal 27.0-33.0 [facility] Comment on above: Performed By: #### L [id number] ####[facility] ([facility])[address] [place] [place] [address] MCV (RBC) [Entitic vol] 93.5 fL Normal 82.0-98.0 [facility] Comment on above: Performed By: #### L [id number] ####[facility] ([facility])[address] [place] [place] [address] PLATELETS (10*3/UL) IN BLOOD AUTOMATED COUNT 135 10*3/uL Low 150-400 [facility] Comment on above: Performed By: #### L [id number] ####[facility] ([facility])[address] [place] [place] [address] RBC (Bld) [#/Vol] 2.46 10*6/uL Low 3.80-5.00 [facility] Comment on above: Performed By: #### L [id number] ####[facility] ([facility])[address] [place] [address] WBC (Bld) [#/Vol] 9.45 10*3/uL Normal 4.00-10.60 [facility] Comment on above: Performed By: #### L [id number] ####[facility] ([facility])[address] [place] [place] [address] IRON AND TIBCon 12-17-2023 IRON (UG/DL) IN SER/PLAS 28 ug/dL Low 50-212 [facility] Comment on above: Performed By: #### L [id number] ####[facility] ([facility])[address] [place] [address] IRON BINDING CAPACITY (UG/DL) IN SER/PLAS 190 ug/dL Low 250-450 [facility] Comment on above: Performed By: #### L [id number] ####[facility] ([facility])[address] [place] [address] IRON BINDING CAPACITY.UNSATURATED (UG/DL) IN SER/PLAS 162.0 ug/dL Normal 155.0-355.0 [facility] Comment on above: Performed By: #### L [id number] ####[facility] ([facility])[address] [place] [address] IRON SATURATION (%) IN SER/PLAS 15 % Low 20-50 [facility] Comment on above: Performed By: #### L [id number] ####[facility] ([facility])[address] [place] [address] MAGNESIUMon 12-17-2023 Magnesium [Mass/Vol] 2.0 mg/dL Normal 1.9-2.7 [facility] Comment on above: Performed By: #### L [id number] ####[facility] ([facility])[address] [place] [address] Orders Onlyon 12-17-2023 Orders Only Normal [facility] POCT GLUCOSE METER UNSOLICIT ED RESULTSon 12-17-2023 Glucose [Mass/Vol] 178 mg/dL High 70-105 [facility] Comment on above: Order Comment: Waive d Testing in the ED is performed under the ED CLIA certificate #[id number]. Result Comment: [email or web address] Performed By: #### L [id number] ####[facility] ([facility])[address] [place] [address] Glucose [Mass/Vol] 181 mg/dL High 70-105 [facility] Comment on above: Order Comment: Waive d Testing in the ED is performed under the ED CLIA certificate #[id number]. Result Comment: [email or web address] Performed By: #### L [id number] ####[facility] ([facility])[address] [place] [address] Glucose [Mass/Vol] 221 mg/dL High 70-105 [facility] Comment on above: Order Comment: Waive d Testing in the ED is performed under the ED CLIA certificate #[id number]. Result Comment: clum an Performed By: #### L [id number] ####[facility] ([facility])[address] [place] [address] Glucose [Mass/Vol] 166 mg/dL High 70-105 [facility] Comment on above: Order Comment: Waive d Testing in the ED is performed under the ED CLIA certificate #[id number]. Result Comment: clum an Performed By: #### L [id number] ####[facility] ([facility])[address] [place] [address] Glucose [Mass/Vol] 152 mg/dL High 70-105 [facility] Comment on above: Order Comment: Waive d Testing in the ED is performed under the ED CLIA certificate #[id number]. Result Comment: clum an Performed By: #### L [id number] ####[facility] ([facility])[address] [place] [address] Glucose [Mass/Vol] 154 mg/dL High 70-105 [facility] Comment on above: Order Comment: Waive d Testing in the ED is performed under the ED CLIA certificate #[id number]. Result Comment: cdav ies Performed By: #### L [id number] ####[facility] ([facility])[address] [place] [address] Glucose [Mass/Vol] 153 mg/dL High 70-105 [facility] Comment on above: Order Comment: Waive d Testing in the ED is performed under the ED CLIA certificate #[id number]. Result Comment: [email or web address] Performed By: #### L [id number] ####[facility] ([facility])[address] [place] [address] Glucose [Mass/Vol] 160 mg/dL High 70-105 [facility] Comment on above: Order Comment: Waive d Testing in the ED is performed under the ED CLIA certificate #[id number]. Result Comment: cdav ies Performed By: #### L [id number] ####[facility] ([facility])[address] [place] [address] Glucose [Mass/Vol] 147 mg/dL High 70-105 [facility] Comment on above: Order Comment: Waive d Testing in the ED is performed under the ED CLIA certificate #[id number]. Result Comment: cdav ies Performed By: #### L [id number] ####[facility] ([facility])[address] [place] [address] Glucose [Mass/Vol] 129 mg/dL High 70-105 [facility] Comment on above: Order Comment: Waive d Testing in the ED is performed under the ED CLIA certificate #[id number]. Result Comment: cdav ies Performed By: #### L [id number] ####[facility] ([facility])[address] [place] [address] Glucose [Mass/Vol] 136 mg/dL High 70-105 [facility] Comment on above: Order Comment: Waive d Testing in the ED is performed under the ED CLIA certificate #[id number]. Result Comment: cdav ies Performed By: #### L [id number] ####[facility] ([facility])[address] [place] [address] Glucose [Mass/Vol] 147 mg/dL High 70-105 [facility] Comment on above: Order Comment: Waive d Testing in the ED is performed under the ED CLIA certificate #[id number]. Result Comment: cdav ies Performed By: #### L [id number] ####[facility] ([facility])[address] [place] [address] Glucose [Mass/Vol] 161 mg/dL High 70-105 [facility] Comment on above: Order Comment: Waive d Testing in the ED is performed under the ED CLIA certificate #[id number]. Result Comment: cdav ies Performed By: #### L [id number] ####[facility] ([facility])[address] [place] [address] 30on 12-16-2023 30 Normal [facility] 30 Normal [facility] ANESon 12-16-2023 ANES [facility] ANTI-XA (HEPARIN LEVEL)on HEPARIN UNFRACTIONATED (U/ML) IN PPP BY CHROMOGENIC METHOD <0.10 Invalid Interpretation Code 0.3-0.7 [facility] Comment on above: Result Comment: [place] roxaban and Apixaban will interfere with the anti Xa assay used to monitor UFH and LMWH. Performed By: #### L [id number] ####[facility] ([facility])[address] [place] [address] APTTon 12-16-2023 ACTIVATED PARTIAL THROMBOPLASTIN TIME IN PPP BY COAGULATION ASSAY 27.7 Seconds Normal 25.0-35.0 [facility] Comment on above: Result Comment: Clin ical significance of the APTT is questionable in the presence of heparin. Performed By: #### L [id number] ####[facility] ([facility])[address] [place] [address] BASIC METABOLIC PANELon 11-23 Anion gap [Moles/Vol] 10 mmol/L Normal 7-20 [facility] Comment on above: Performed By: #### L [id number] ####[facility] ([facility])[address] [place] [address] Calcium [Mass/Vol] 8.5 mg/dL Low 8.6-10.3 [facility] Comment on above: Performed By: #### L [id number] ####[facility] ([facility])[address] [place] [address] Chloride [Moles/Vol] 108 mmol/L High 98-107 [facility] Comment on above: Performed By: #### L [id number] ####[facility] ([facility])[address] [place] [address] CO2 [Moles/Vol] 27 mmol/L Normal 21-31 [facility] Comment on above: Performed By: #### L [id number] ####[facility] ([facility]ER)[address] [place] [address] Creatinine [Mass/Vol] 0.80 mg/dL Normal 0.60-1.20 [facility] Comment on above: Performed By: #### L [id number] ####[facility] ([facility])[address] [place] [address] GLOMERULAR FILTRATION RATE ML/MIN/1.73 SQ M.PREDICTED 83.3 mL/min/1.73m*2 Normal >60.0 [facility] Comment on above: Result Comment: [facility]???s estimated glomerular filtration rate (eGFR) will [...] of individuals. Performed By: #### L [id number] ####[facility] ([facility])[address] [place] [place] [address] Glucose [Mass/Vol] 159 mg/dL High 70-100 [facility] Comment on above: Performed By: #### L [id number] ####[facility] ([facility])[address] [place] [address] Potassium [Moles/Vol] 4.3 mmol/L Normal 3.5-5.1 [facility] Comment on above: Performed By: #### L [id number] ####[facility] ([facility])[address] [place] [address] Sodium [Moles/Vol] 141 mmol/L Normal 136-145 [facility] Comment on above: Performed By: #### L [id number] ####[facility] ([facility])[address] [place] [address] Urea nitrogen [Mass/Vol] 15 mg/dL Normal 7-25 [facility] Comment on above: Performed By: #### L [id number] ####[facility] ([facility])[address] [place] [address] UREA NITROGEN/CREATININE (MASS RATIO) IN SER/PLAS 18.8 Normal [facility] Comment on above: Performed By: #### L [id number] ####[facility] ([facility])[address] [place] [place] [address] CBCon 12-16-2023 Erythrocyte distribution width (RBC) [Ratio] 13.0 % Normal 11.5-15.0 [facility] Comment on above: Performed By: #### L [id number] ####[facility] ([facility])[address] [place] [place] [address] ERYTHROCYTE MEAN CORPUSCULAR HEMOGLOBIN CONCENTRATION (G/DL) BY AUTOMATED 33.7 g/dL Normal 32.0-35.0 [facility] Comment on above: Performed By: #### L [id number] ####[facility] ([facility])[address] [place] [place] [address] Hematocrit (Bld) [Volume fraction] 24.3 % Low 36.0-48.0 [facility] Comment on above: Performed By: #### L [id number] ####[facility] ([facility])[address] [place] [place] [address] Hemoglobin (Bld) [Mass/Vol] 8.2 g/dL Low 12.0-15.0 [facility] Comment on above: Performed By: #### L [id number] ####[facility] ([facility])[address] [place] [place] [address] MCH (RBC) [Entitic mass] 31.1 pg Normal 27.0-33.0 [facility] Comment on above: Performed By: #### L [id number] ####[facility] ([facility])[address] [place] [place] [address] MCV (RBC) [Entitic vol] 92.0 fL Normal 82.0-98.0 [facility] Comment on above: Performed By: #### L [id number] ####[facility] ([facility])[address] [place] [place] [address] PLATELETS (10*3/UL) IN BLOOD AUTOMATED COUNT 130 10*3/uL Low 150-400 [facility] Comment on above: Performed By: #### L [id number] ####[facility] ([facility])[address] [place] [place] [address] RBC (Bld) [#/Vol] 2.64 10*6/uL Low 3.80-5.00 [facility] Comment on above: Performed By: #### L [id number] ####[facility] ([facility])[address] [place] [place] [address] WBC (Bld) [#/Vol] 6.53 10*3/uL Normal 4.00-10.60 [facility] Comment on above: Performed By: #### L [id number] ####[facility] ([facility])[address] [place] [place] [address] CONSULTon 12-16-2023 CONSULT Normal [facility] MAGNESIUMon 12-16-2023 Magnesium [Mass/Vol] 2.2 mg/dL Normal 1.9-2.7 [facility] Comment on above: Performed By: #### L [id number] ####[facility] ([facility])[address] [place] [place] [address] PHOSPHORUSon 12-16-2023 Magnesium [Mass/Vol] 3.6 mg/dL Normal 2.5-5.0 [facility] Comment on above: Performed By: #### L [id number] ####[facility] ([facility])[address] [place] [place] [address] POCT GLUCOSE METER UNSOLICIT ED RESULTSon 12-16-2023 Glucose [Mass/Vol] 163 mg/dL High 70-105 [facility] Comment on above: Order Comment: Waive d Testing in the ED is performed under the ED CLIA certificate #[id number]. Result Comment: cdav ies Performed By: #### L [id number] ####[facility] ([facility])[address] [place] [place] [address] Glucose [Mass/Vol] 138 mg/dL High 70-105 [facility] Comment on above: Order Comment: Waive d Testing in the ED is performed under the ED CLIA certificate #[id number]. Result Comment: cdav ies Performed By: #### L [id number] ####[facility] ([facility]ER)[address] [place] [address] Glucose [Mass/Vol] 105 mg/dL Normal 70-105 [facility] Comment on above: Order Comment: Waive d Testing in the ED is performed under the ED CLIA certificate #[id number]. Result Comment: cdav ies Performed By: #### L [id number] ####[facility] (AKER)[address] [place] [address] Glucose [Mass/Vol] 77 mg/dL Normal 70-105 [facility] Comment on above: Order Comment: Waive d Testing in the ED is performed under the ED CLIA certificate #[id number]. Result Comment: cdav ies Performed By: #### L [id number] ####[facility] ([facility])[address] [place] [address] Glucose [Mass/Vol] 128 mg/dL High 70-105 [facility] Comment on above: Order Comment: Waive d Testing in the ED is performed under the ED CLIA certificate #[id number]. Result Comment: [email or web address] Performed By: #### L [id number] ####[facility] ([facility])[address] [place] [address] Glucose [Mass/Vol] 155 mg/dL High 70-105 [facility] Comment on above: Order Comment: Waive d Testing in the ED is performed under the ED CLIA certificate #[id number]. Result Comment: [email or web address] Performed By: #### L [id number] ####[facility] ([facility])[address] [place] [address] Glucose [Mass/Vol] 160 mg/dL High 70-105 [facility] Comment on above: Order Comment: Waive d Testing in the ED is performed under the ED CLIA certificate #[id number]. Result Comment: tlin [email or web address] Performed By: #### L [id number] ####[facility] ([facility])[address] [place] [address] Glucose [Mass/Vol] 126 mg/dL High 70-105 [facility] Comment on above: Order Comment: Waive d Testing in the ED is performed under the ED CLIA certificate #[id number]. Result Comment: [email or web address] Performed By: #### L [id number] ####[facility] ([facility])[address] [place] [address] Glucose [Mass/Vol] 125 mg/dL High 70-105 [facility] [facility] Comment on above: Order Comment: Waive d Testing in the ED is performed under the ED CLIA certificate #[id number]. Result Comment: tlin [email or web address] Performed By: #### L [id number] ####[facility] (AKER)[address] [place] [address] Glucose [Mass/Vol] 173 mg/dL High 70-105 [facility] Comment on above: Order Comment: Waive d Testing in the ED is performed under the ED CLIA certificate #[id number]. Result Comment: tlin dle2 Performed By: #### L [id number] ####[facility] (AKER)[address] [place] [address] Glucose [Mass/Vol] 160 mg/dL High 70-105 [facility] Comment on above: Order Comment: Waive d Testing in the ED is performed under the ED CLIA certificate #[id number]. Result Comment: tlin dle2 Performed By: #### L [id number] ####[facility] (BEAKER)[address] [place] [address] Glucose [Mass/Vol] 189 mg/dL High 70-105 [facility] Comment on above: Order Comment: Waive d Testing in the ED is performed under the ED CLIA certificate #[id number]. Result Comment: tlin dle2 Performed By: #### L [id number] ####[facility] (BEAKER)[address] [place] [address] Glucose [Mass/Vol] 172 mg/dL High 70-105 [facility] Comment on above: Order Comment: Waive d Testing in the ED is performed under the ED CLIA certificate #[id number]. Result Comment: tlin [email or web address] Performed By: #### L [id number] ####[facility] (BEAKER)[address] [place] [address] Glucose [Mass/Vol] 188 mg/dL High 70-105 [facility] Comment on above: Order Comment: Waive d Testing in the ED is performed under the ED CLIA certificate #[id number]. Result Comment: tlin dle2 Performed By: #### L [id number] ####[facility] ([facility])[address] [place] [address] Glucose [Mass/Vol] 192 mg/dL High 70-105 [facility] Comment on above: Order Comment: Waive d Testing in the ED is performed under the ED CLIA certificate #[id number]. Result Comment: [email or web address] Performed By: #### L [id number] ####[facility] (BEAKER)[address] [place] [address] Glucose [Mass/Vol] 233 mg/dL High 70-105 [facility] Comment on above: Order Comment: Waive d Testing in the ED is performed under the ED CLIA certificate #[id number]. Result Comment: cdav ies Performed By: #### L [id number] ####[facility] (BEAKER)[address] [place] [address] Glucose [Mass/Vol] 198 mg/dL High 70-105 [facility] Comment on above: Order Comment: Waive d Testing in the ED is performed under the ED CLIA certificate #[id number]. Result Comment: cdav ies Performed By: #### L [id number] ####[facility] (BEAKER)[address] [place] [address] Glucose [Mass/Vol] 193 mg/dL High 70-105 [facility] Comment on above: Order Comment: Waive d Testing in the ED is performed under the ED CLIA certificate #[id number]. Result Comment: cdav ies Performed By: #### L [id number] ####[facility] ([facility])[address] [place] [address] Glucose [Mass/Vol] 186 mg/dL High 70-105 [facility] Comment on above: Order Comment: Waive d Testing in the ED is performed under the ED CLIA certificate #[id number]. Result Comment: cdav ies Performed By: #### L [id number] ####[facility] ([facility])[address] [place] [address] Glucose [Mass/Vol] 208 mg/dL High 70-105 [facility] Comment on above: Order Comment: Waive d Testing in the ED is performed under the ED CLIA certificate #[id number]. Result Comment: cdav ies Performed By: #### L [id number] ####[facility] ([facility])[address] [place] [address] Glucose [Mass/Vol] 188 mg/dL High 70-105 [facility] Comment on above: Order Comment: Waive d Testing in the ED is performed under the ED CLIA certificate #[id number]. Result Comment: cdav ies Performed By: #### L [id number] ####[facility] ([facility])[address] [place] [address] Glucose [Mass/Vol] 177 mg/dL High 70-105 [facility] Comment on above: Order Comment: Waive d Testing in the ED is performed under the ED CLIA certificate #[id number]. Result Comment: cdav ies Performed By: #### L [id number] ####[facility] ([facility])[address] [place] [address] PROTIME-INRon 12-16-2023 INR IN PPP BY COAGULATION ASSAY 1.19 High 0.90-1.10 [facility] Comment on above: Result Comment: ACCC [...] CHEST 1995;108:[id number]. Performed By: #### L [id number] ####[facility] [employer])[address] [place] [address] PROTHROMBIN TIME (PT) IN PPP BY COAGULATION ASSAY 15.0 Seconds High 12.3-14.8 [facility] Comment on above: Performed By: #### L [id number] ####[facility] [employer])[address] [place] [address] 30on 12-15-2023 30 Normal [facility] APTTon 12-15-2023 ACTIVATED PARTIAL THROMBOPLASTIN TIME IN PPP BY COAGULATION ASSAY 25.0 Seconds Normal 25.0-35.0 [facility] Comment on above: Result Comment: Clin ical significance of the APTT is questionable in the presence of heparin. Performed By: #### L [id number] ####[facility] [employer])[address] [place] [address] ARTERIAL BLOOD GAS WITH IONI ZED CALCIUMon 12-15-2023 Base excess Calc (Bld) [Moles/Vol] -2.2000 mmol/L Low -2.0-3.0 [facility] Comment on above: Performed By: #### L [id number] ####[facility] [id number] [facility] [place] [address] [facility] CALCIUM IONIZED (MMOL/L) IN BLOOD 1.22 mmol/L Normal 1.15-1.33 [facility] Comment on above: Performed By: #### L [id number] ####[facility] [id number] [place] [address] [facility] CO2 (Bld) [Partial pressure] 37 mm[Hg] Normal 35-48 [facility] Comment on above: Performed By: #### L [id number] ####[facility] [id number] [place] [address] [facility] HCO3 (Bld) [Moles/Vol] 22.4 mmol/L Normal 21.0-28.0 [facility] Comment on above: Performed By: #### L [id number] ####[facility] [id number] [facility] [place] [address] [facility] LPM 3 Normal [facility] Comment on above: Performed By: #### L [id number] ####[facility] [id number] [facility] [place] [address] [place] Oxygen (Bld) [Partial pressure] 106 mm[Hg] High 83-100 [facility] Comment on above: Performed By: #### L [id number] ####[facility] [id number] [facility] [place] [address] [place] OXYGEN SATURATION (%) IN ARTERIAL BLOOD 99.0 % High 94.0-98.0 [facility] Comment on above: Performed By: #### L [id number] ####[facility] [id number] [facility] [place] [address] [place] pH (Bld) 7.39 [pH] Normal 7.35-7.45 [facility] Comment on above: Performed By: #### L [id number] ####[facility] [id number] [facility] [place] [address] [place] SOURCE OF OXYGEN Nasal cannula Normal [facility] Comment on above: Performed By: #### L [id number] ####[facility] [id number] [facility] [place] [address] [facility] Anesthesiaon 12-15-2023 Anesthesia Normal [facility] BASIC METABOLIC PANELon 11-23 Anion gap [Moles/Vol] 10 mmol/L Normal 7-20 [facility] Comment on above: Performed By: #### L [id number] ####[facility] (BEAKER)[address] [place] [place] [address] Calcium [Mass/Vol] 9.0 mg/dL Normal 8.6-10.3 [facility] Comment on above: Performed By: #### L [id number] ####[facility] (BEAKER)[address] [place] [place] [address] Chloride [Moles/Vol] 101 mmol/L Normal 98-107 [facility] Comment on above: Performed By: #### L [id number] ####[facility] (BEAKER)[address] [place] [place] [address] CO2 [Moles/Vol] 27 mmol/L Normal 21-31 [facility] Comment on above: Performed By: #### L [id number] ####[facility] (BEAKER)[address] [place] [place] [address] Creatinine [Mass/Vol] 0.85 mg/dL Normal 0.60-1.20 [facility] Comment on above: Performed By: #### L [id number] ####[facility] ([facility])[address] [place] [address] GLOMERULAR FILTRATION RATE ML/MIN/1.73 SQ M.PREDICTED 77.4 mL/min/1.73m*2 Normal >60.0 [facility] Comment on above: Result Comment: [facility]???s estimated glomerular filtration rate (eGFR) will [...] of individuals. Performed By: #### L [id number] ####[facility] ([facility])[address] [place] [place] [address] Glucose [Mass/Vol] 118 mg/dL High 70-100 [facility] Comment on above: Performed By: #### L [id number] ####[facility] ([facility])[address] [place] [place] [address] Potassium [Moles/Vol] 4.3 mmol/L Normal 3.5-5.1 [facility] Comment on above: Performed By: #### L [id number] ####[facility] ([facility])[address] [place] [place] [address] Sodium [Moles/Vol] 134 mmol/L Low 136-145 [facility] Comment on above: Performed By: #### L [id number] ####[facility] ([facility])[address] [place] [place] [address] Urea nitrogen [Mass/Vol] 17 mg/dL Normal 7-25 [facility] Comment on above: Performed By: #### L [id number] ####[facility] ([facility])[address] [place] [place] [address] UREA NITROGEN/CREATININE (MASS RATIO) IN SER/PLAS 20.0 Normal [facility] Comment on above: Performed By: #### L [id number] ####[facility] ([facility])[address] [place] [place] [address] CBCon 12-15-2023 Erythrocyte distribution width (RBC) [Ratio] 12.5 % Normal 11.5-15.0 [facility] Comment on above: Performed By: #### L [id number] ####[facility] ([facility])[address] [place] [place] [address] ERYTHROCYTE MEAN CORPUSCULAR HEMOGLOBIN CONCENTRATION (G/DL) BY AUTOMATED 34.4 g/dL Normal 32.0-35.0 [facility] Comment on above: Performed By: #### L [id number] ####[facility] (BEAKER)[address] [place] [place] [address] Hematocrit (Bld) [Volume fraction] 41.8 % Normal 36.0-48.0 [facility] Comment on above: Performed By: #### L [id number] ####[facility] (BEAKER)[address] [place] [place] [address] Hemoglobin (Bld) [Mass/Vol] 14.4 g/dL Normal 12.0-15.0 [facility] Comment on above: Performed By: #### L [id number] ####[facility] (BEAKER)[address] [place] [place] [address] MCH (RBC) [Entitic mass] 31.2 pg Normal 27.0-33.0 [facility] Comment on above: Performed By: #### L [id number] ####[facility] [place] [address] MCV (RBC) [Entitic vol] 90.5 fL Normal 82.0-98.0 [facility] Comment on above: Performed By: #### L [id number] ####[facility] [place], [place] [address] PLATELETS (10*3/UL) IN BLOOD AUTOMATED COUNT 207 10*3/uL Normal 150-400 [facility] Comment on above: Performed By: #### L [id number] ####[facility] (BEAKER)[address] [place] [address] RBC (Bld) [#/Vol] 4.62 10*6/uL Normal 3.80-5.00 [facility] Comment on above: Performed By: #### L [id number] ####[facility] (BEAKER)[address] [place], [place] [address] WBC (Bld) [#/Vol] 6.04 10*3/uL Normal 4.00-10.60 [facility] Comment on above: Performed By: #### L [id number] ####[facility] ([facility] [place] [place] [address] CBC WITH AUTO DIFFERENTIALon 12-15-2023 Basophils (Bld) [#/Vol] 0.05 10*3/uL Normal 0.00-0.20 [facility] Comment on above: Performed By: #### L [id number] ####[facility] ([facility])[address] [place] [address] Basophils/100 WBC (Bld) 0.3 % Normal 0.0-1.0 [facility] Comment on above: Performed By: #### L [id number] ####[facility] ([facility])[address] [place] [place] [address] Eosinophils (Bld) [#/Vol] 0.01 10*3/uL Normal 0.00-0.50 [facility] Comment on above: Performed By: #### L [id number] ####[facility] ([facility])[address] [place] [place] [address] Eosinophils/100 WBC (Bld) 0.1 % Normal 0.0-6.0 [facility] Comment on above: Performed By: #### L [id number] ####[facility] ([facility])[address] [place] [address] Erythrocyte distribution width (RBC) [Ratio] 12.8 % Normal 11.5-15.0 [facility] Comment on above: Performed By: #### L [id number] ####[facility] ([facility])[address] [place] [address] ERYTHROCYTE MEAN CORPUSCULAR HEMOGLOBIN CONCENTRATION (G/DL) BY AUTOMATED 33.2 g/dL Normal 32.0-35.0 [facility] Comment on above: Performed By: #### L [id number] ####[facility] (BEAKER)[address] [place] [place] [address] Hematocrit (Bld) [Volume fraction] 31.0 % Low 36.0-48.0 [facility] Comment on above: Performed By: #### L [id number] ####[facility] (BEAKER)[address] [place] [address] Hemoglobin (Bld) [Mass/Vol] 10.3 g/dL Low 12.0-15.0 [facility] Comment on above: Performed By: #### L [id number] ####[facility] (BEAKER)[address] [place] [address] Immature granulocytes (Bld) [#/Vol] 0.12 10*3/uL Normal 0.00-0.20 [facility] Comment on above: Performed By: #### L [id number] ####[facility] (BEAKER)[address] [place] [place] [address] Immature granulocytes/100 WBC (Bld) 0.8 % Normal 0.0-1.0 [facility] Comment on above: Performed By: #### L [id number] ####[facility] (BEAKER)[address] [place] [place] [address] Lymphocytes (Bld) [#/Vol] 1.58 10*3/uL Normal 1.20-4.00 [facility] Comment on above: Performed By: #### L [id number] ####[facility] (BEAKER)[address] [place] [place] [address] Lymphocytes/100 WBC (Bld) 10.4 % Low 20.0-45.0 [facility] Comment on above: Performed By: #### L [id number] ####[facility] (BEAKER)[address] [place] [place] [address] MCH (RBC) [Entitic mass] 31.2 pg Normal 27.0-33.0 [facility] Comment on above: Performed By: #### L [id number] ####[facility] (BEAKER)[address] [place] [place] [address] MCV (RBC) [Entitic vol] 93.9 fL Normal 82.0-98.0 [facility] Comment on above: Performed By: #### L [id number] ####[facility] (BEAKER)[address] [place] [place] [address] Monocytes (Bld) [#/Vol] 1.19 10*3/uL High 0.10-1.00 [facility] Comment on above: Performed By: #### L [id number] ####[facility] ([facility] [place] [place] [address] Monocytes/100 WBC (Bld) 7.8 % Normal 5.0-12.0 [facility] Comment on above: Performed By: #### L [id number] ####[facility] ([facility])[address] [place] [place] [address] Neutrophils (Bld) [#/Vol] 12.28 10*3/uL High 1.60-7.60 [facility] Comment on above: Performed By: #### L [id number] ####[facility] ([facility])[address] [place] [place] [address] Neutrophils/100 WBC (Bld) 80.6 % High 40.0-72.0 [facility] Comment on above: Performed By: #### L [id number] ####[facility] ([facility])[address] [place] [place] [address] NRBC (PER 100 WBCS) BY AUTOMATED COUNT 0.0 % Normal 0 [facility] Comment on above: Performed By: #### L [id number] ####[facility] ([facility])[address] [place] [place] [address] PLATELETS (10*3/UL) IN BLOOD AUTOMATED COUNT 189 10*3/uL Normal 150-400 [facility] Comment on above: Performed By: #### L [id number] ####[facility] ([facility])[address] [place] [place] [address] RBC (Bld) [#/Vol] 3.30 10*6/uL Low 3.80-5.00 [facility] Comment on above: Performed By: #### L [id number] ####[facility] (BEAKER)[address] [place] [place] [address] WBC (Bld) [#/Vol] 15.23 10*3/uL High 4.00-10.60 [facility] Comment on above: Performed By: #### L [id number] ####[facility] (BEAKER)[address] [place] [address] CO-OXIMETRYon 12-15-2023 CARBOXYHEMOGLOBIN/HEMO GLOBIN TOTAL % IN BLOOD 1.7 % Normal [facility] Comment on above: Performed By: #### L [id number] ####[facility] [id number] [place] [address] [place] Hemoglobin (Bld) [Mass/Vol] 9.1 g/dL Normal [facility] Comment on above: Performed By: #### L [id number] ####[facility] [id number] [place] [address] [place] METHEMOGLOBIN/100 IN BLOOD 0.3 % Normal 0.0-1.5 [facility] Comment on above: Performed By: #### L [id number] ####[facility] [id number] [place] [address] [place] Oxygen saturation in Blood 64.9 % Normal [facility] Comment on above: Performed By: #### L [id number] ####[facility] [id number] [place] [address] [place] OXYGENATED HEMOGLOBIN IN BLOOD 63.6 % Normal [facility] Comment on above: Performed By: #### L [id number] ####[facility] [id number] [place] [address] [place] COMPREHENSIVE METABOLIC PANE Kirit 12-15-2023 Albumin [Mass/Vol] 3.5 g/dL Normal 3.5-5.7 [facility] Comment on above: Performed By: #### L [id number] ####[facility] (BEAKER)[address] [place] [address] ALP [Catalytic activity/Vol] 47 U/L Normal 34-104 [facility] Comment on above: Performed By: #### L [id number] ####[facility] (BEAKER)[address] [place] [address] ALT [Catalytic activity/Vol] 21 U/L Normal 7-52 [facility] Comment on above: Performed By: #### L [id number] ####[facility] (BEAKER)[address] [place] [address] Anion gap [Moles/Vol] 13 mmol/L Normal 7-20 [facility] Comment on above: Performed By: #### L [id number] ####[facility] (BEAKER)[address] [place] [address] AST [Catalytic activity/Vol] 37 U/L Normal 13-39 [facility] Comment on above: Performed By: #### L [id number] ####[facility] (BEAKER)[address] [place] [address] Bilirubin [Mass/Vol] 0.6 mg/dL Normal 0.3-1.0 [facility] Comment on above: Performed By: #### L [id number] ####[facility] (BEAKER)[address] [place] [address] Calcium [Mass/Vol] 9.1 mg/dL Normal 8.6-10.3 [facility] Comment on above: Performed By: #### L [id number] ####[facility] (BEAKER)[address] [place] [address] Chloride [Moles/Vol] 109 mmol/L High 98-107 [facility] Comment on above: Performed By: #### L [id number] ####[facility] (BEAKER)[address] [place] [address] CO2 [Moles/Vol] 21 mmol/L Normal 21-31 [facility] Comment on above: Performed By: #### L [id number] ####[facility] (BEAKER)[address] [place] [address] Creatinine [Mass/Vol] 0.84 mg/dL Normal 0.60-1.20 [facility] Comment on above: Performed By: #### L [id number] ####[facility] HOSPITAL LAB (BEAKER)[address] [place] [address] GLOMERULAR FILTRATION RATE ML/MIN/1.73 SQ M.PREDICTED 78.5 mL/min/1.73m*2 Normal >60.0 [facility] Comment on above: Result Comment: [facility]???s estimated glomerular filtration rate (eGFR) will [...] of individuals. Performed By: #### L [id number] ####[facility] ([facility])[address] [place] [address] Glucose [Mass/Vol] 205 mg/dL High 70-100 [facility] Comment on above: Performed By: #### L [id number] ####[facility] ([facility])[address] [place] [address] Potassium [Moles/Vol] 4.0 mmol/L Normal 3.5-5.1 [facility] Comment on above: Performed By: #### L [id number] ####[facility] ([facility])[address] [place] [address] Protein [Mass/Vol] 5.2 g/dL Low 6.0-8.3 [facility] Comment on above: Performed By: #### L [id number] ####[facility] ([facility])[address] [place] [address] Sodium [Moles/Vol] 139 mmol/L Normal 136-145 [facility] Comment on above: Performed By: #### L [id number] ####[facility] ([facility])[address] [place] [address] Urea nitrogen [Mass/Vol] 15 mg/dL Normal 7-25 [facility] Comment on above: Performed By: #### L [id number] ####[facility] ([facility])[address] [place] [address] UREA NITROGEN/CREATININE (MASS RATIO) IN SER/PLAS 17.9 Normal [facility] Comment on above: Performed By: #### L [id number] ####[facility] ([facility])[address] [place] [place] [address] FIBRINOGENon 12-15-2023 Magnesium [Mass/Vol] 292 mg/dL Normal 150-425 [facility] Comment on above: Performed By: #### L [id number] ####[facility] ([facility])[address] [place] [address] HPon 12-15-2023 HP H&P reviewed. The edward garcia was examined and there are no changes to the H&P. Normal [facility] LACTIC ACID, PLASMAon 2023 LACTATE (MMOL/L) IN SER/PLAS 2.1 mmol/L Normal 0.5-2.2 [facility] Comment on above: Performed By: #### L [id number] ####[facility] ([facility])[address] [place] [address] MAGNESIUMon 12-15-2023 Magnesium [Mass/Vol] 2.4 mg/dL Normal 1.9-2.7 [facility] Comment on above: Performed By: #### L [id number] ####[facility] ([facility])[address] [place] [address] NURSNOTEon 12-15-2023 NURSNOTE Normal [facility] NURSNOTE Normal [facility] OPNOTEon 12-15-2023 OPNOTE Normal [facility] PHOSPHORUSon 12-15-2023 Magnesium [Mass/Vol] 5.4 mg/dL High 2.5-5.0 [facility] Comment on above: Performed By: #### L [id number] ####[facility] ([facility])[address] [place] [address] POCT ACTIVATED CLOTTING TIME UNSOLICITED RESULTSon 12-15-2023 POC ACTIVATED CLOTTING TIME 123 sec Normal 82-152 [facility] Comment on above: Performed By: #### L [id number] ####[facility])[address] [place] [address] POC ACTIVATED CLOTTING TIME 475 sec High 82-152 [facility] Comment on above: Performed By: #### L [id number] ####[facility] [place] [address] POC ACTIVATED CLOTTING TIME 521 sec High 82-152 [facility] Comment on above: Performed By: #### L [id number] ####[facility] ([facility] [place] [address] POC ACTIVATED CLOTTING TIME 462 sec High 82-152 [facility] Comment on above: Performed By: #### L [id number] ####[facility] (BEAKER)[address] [place] [address] POC ACTIVATED CLOTTING TIME 469 sec High 82-152 [facility] Comment on above: Performed By: #### L [id number] ####[facility] ([facility])[address] [place] [address] POC ACTIVATED CLOTTING TIME 584 sec High 82-152 [facility] Comment on above: Performed By: #### L [id number] ####[facility] ([facility])[address] [place] [address] POC ACTIVATED CLOTTING TIME 116 sec Normal 82-152 [facility] Comment on above: Performed By: #### L [id number] ####[facility] ([facility])[address] [place] [address] POCT GLUCOSE METER UNSOLICIT ED RESULTSon 12-15-2023 Glucose [Mass/Vol] 171 mg/dL High 70-105 [facility] Comment on above: Order Comment: Waive d Testing in the ED is performed under the ED CLIA certificate #[id number]. Result Comment: cdav ies Performed By: #### L [id number] ####[facility] (BE[facility]ER)[address] [place] [address] Glucose [Mass/Vol] 184 mg/dL High 70-105 [facility] Comment on above: Order Comment: Waive d Testing in the ED is performed under the ED CLIA certificate #[id number]. Result Comment: cdav ies Performed By: #### L [id number] ####[facility] ([facility])[address] [place] [address] Glucose [Mass/Vol] 166 mg/dL High 70-105 [facility] Comment on above: Order Comment: Waive d Testing in the ED is performed under the ED CLIA certificate #[id number]. Result Comment: cdav ies Performed By: #### L [id number] ####[facility] ([facility])[address] [place] [address] Glucose [Mass/Vol] 145 mg/dL High 70-105 [facility] Comment on above: Order Comment: Waive d Testing in the ED is performed under the ED CLIA certificate #[id number]. Result Comment: cdav ies Performed By: #### L [id number] ####[facility] ([facility] [place] [address] Glucose [Mass/Vol] 216 mg/dL High 70-105 [facility] Comment on above: Order Comment: Waive d Testing in the ED is performed under the ED CLIA certificate #[id number]. Result Comment: jgig and Performed By: #### L [id number] ####[facility] ([facility])[address] [place] [address] Glucose [Mass/Vol] 224 mg/dL High 70-105 [facility] Comment on above: Order Comment: Waive d Testing in the ED is performed under the ED CLIA certificate #[id number]. Result Comment: jgig and Performed By: #### L [id number] ####[facility] ([facility])[address] [place] [address] POCT PERFUSION PANEL UNSOLIC ITED RESULTSon 12-15-2023 CO2 [Moles/Vol] 23.0 mmol/L Normal 21.0-29.0 [facility] Comment on above: Performed By: #### L [id number] ####[facility] ([facility])[address] [address] Glucose [Mass/Vol] 205 mg/dL High 70-105 [facility] Comment on above: Performed By: #### L [id number] ####[facility] ([facility])[address] [address] HCO3 (Bld) [Moles/Vol] 22.1 mmol/L Low 23.0-28.0 [facility] Comment on above: Performed By: #### L [id number] ####[facility] ([facility])[address] [address] Hematocrit (Bld) [Volume fraction] 27 % Low 38-51 [facility] Comment on above: Performed By: #### L [id number] ####[facility] ([facility])[address] [address] Hemoglobin (Bld) [Mass/Vol] 9.2 g/dL Low 12.0-17.0 [facility] Comment on above: Performed By: #### L [id number] ####[facility] ([facility])[address] [place] [place] [address] POCT BASE EXCESS -4.0 mmol/L Low -2.0-3.0 [facility] Comment on above: Performed By: #### L [id number] ####[facility] ([facility])[address] [address] POCT IONIZED CALCIUM 1.18 mmol/L Normal 1.12-1.32 [facility] Comment on above: Performed By: #### L [id number] ####[facility] ([facility])[address] [address] POCT PCO2 42.2 mmHg Normal 41.0-51.0 [facility] Comment on above: Performed By: #### L [id number] ####[facility] ([facility])[address] [address] POCT PH 7.33 Normal 7.31-7.41 [facility] Comment on above: Performed By: #### L [id number] ####[facility] ([facility])[address] [address] POCT PO2 306 mmHg High 80-105 [facility] Comment on above: Performed By: #### L [id number] ####[facility] ([facility])[address] [address] POCT SO2 100 % High 95-98 [facility] Comment on above: Performed By: #### L [id number] ####[facility] ([facility])[address] [address] Potassium [Moles/Vol] 4.3 mmol/L Normal 3.5-4.9 [facility] Comment on above: Performed By: #### L [id number] ####[facility] ([facility])[address] [address] Sodium [Moles/Vol] 137 mmol/L Low 138.0-146.0 [facility] Comment on above: Performed By: #### L [id number] ####[facility] ([facility])[address] [address] CO2 [Moles/Vol] 24.0 mmol/L Normal 21.0-29.0 [facility] Comment on above: Performed By: #### L [id number] ####[facility] ([facility])[address] [address] Glucose [Mass/Vol] 196 mg/dL High 70-105 [facility] Comment on above: Performed By: #### L [id number] ####[facility] ([facility])[address] [address] HCO3 (Bld) [Moles/Vol] 23.0 mmol/L Normal 23.0-28.0 [facility] Comment on above: Performed By: #### L [id number] ####[facility] ([facility])[address] [place] [place] [address] Hematocrit (Bld) [Volume fraction] 25 % Low 38-51 [facility] Comment on above: Performed By: #### L [id number] ####[facility] ([facility])[address] [place] [address] Hemoglobin (Bld) [Mass/Vol] 8.5 g/dL Low 12.0-17.0 [facility] Comment on above: Performed By: #### L [id number] ####[facility] ([facility])[address] [place] [address] POCT BASE EXCESS -2.0 mmol/L Normal -2.0-3.0 [facility] Comment on above: Performed By: #### L [id number] ####[facility] ([facility])[address] [place] [address] POCT IONIZED CALCIUM 0.99 mmol/L Low 1.12-1.32 [facility] Comment on above: Performed By: #### L [id number] ####[facility] ([facility])[address] [place] [address] POCT PCO2 40.9 mmHg Low 41.0-51.0 [facility] Comment on above: Performed By: #### L [id number] ####[facility] ([facility])[address] [place] [address] POCT PH 7.36 Normal 7.31-7.41 [facility] Comment on above: Performed By: #### L [id number] ####[facility] ([facility])[address] [place] [address] POCT PO2 480 mmHg High 80-105 [facility] Comment on above: Performed By: #### L [id number] ####[facility] ([facility])[address] [place] [address] POCT SO2 100 % High 95-98 [facility] Comment on above: Performed By: #### L [id number] ####[facility] ([facility])[address] [place] [address] Potassium [Moles/Vol] 4.8 mmol/L Normal 3.5-4.9 [facility] Comment on above: Performed By: #### L [id number] ####[facility] ([facility])[address] [place] [address] Sodium [Moles/Vol] 136 mmol/L Low 138.0-146.0 [facility] Comment on above: Performed By: #### L [id number] ####[facility] ([facility])[address] [place] [address] CO2 [Moles/Vol] 24.0 mmol/L Normal 21.0-29.0 [facility] Comment on above: Performed By: #### L [id number] ####[facility] ([facility])[address] [place] [address] Glucose [Mass/Vol] 197 mg/dL High 70-105 [facility] Comment on above: Performed By: #### L [id number] ####[facility] ([facility])[address] [place] [place] [address] HCO3 (Bld) [Moles/Vol] 22.7 mmol/L Low 23.0-28.0 [facility] Comment on above: Performed By: #### L [id number] ####[facility] ([facility])[address] [place] [place] [address] Hematocrit (Bld) [Volume fraction] 29 % Low 38-51 [facility] Comment on above: Performed By: #### L [id number] ####[facility] ([facility])[address] [place] [place] [address] Hemoglobin (Bld) [Mass/Vol] 9.9 g/dL Low 12.0-17.0 [facility] Comment on above: Performed By: #### L [id number] ####[facility] ([facility])[address] [place] [address] POCT BASE EXCESS -2.0 mmol/L Normal -2.0-3.0 [facility] Comment on above: Performed By: #### L [id number] ####[facility] ([facility])[address] [address] POCT IONIZED CALCIUM 1.01 mmol/L Low 1.12-1.32 [facility] Comment on above: Performed By: #### L [id number] ####[facility] ([facility])[address] [address] POCT PCO2 39.4 mmHg Low 41.0-51.0 [facility] Comment on above: Performed By: #### L [id number] ####[facility] ([facility])[address] [address] POCT PH 7.37 Normal 7.31-7.41 [facility] Comment on above: Performed By: #### L [id number] ####[facility] ([facility])[address] [address] POCT PO2 508 mmHg High 80-105 [facility] Comment on above: Performed By: #### L [id number] ####[facility] ([facility])[address] [address] POCT SO2 100 % High 95-98 [facility] Comment on above: Performed By: #### L [id number] ####[facility] ([facility])[address] [address] Potassium [Moles/Vol] 4.6 mmol/L Normal 3.5-4.9 [facility] Comment on above: Performed By: #### L [id number] ####[facility] ([facility])[address] [place] [address] Sodium [Moles/Vol] 135 mmol/L Low 138.0-146.0 [facility] Comment on above: Performed By: #### L [id number] ####[facility] ([facility])[address] [address] CO2 [Moles/Vol] 25.0 mmol/L Normal 21.0-29.0 [facility] Comment on above: Performed By: #### L [id number] ####[facility] ([facility])[address] [place] [place] [address] Glucose [Mass/Vol] 186 mg/dL High 70-105 [facility] Comment on above: Performed By: #### L [id number] ####[facility] ([facility])[address] [place] [place] [address] HCO3 (Bld) [Moles/Vol] 24.0 mmol/L Normal 23.0-28.0 [facility] Comment on above: Performed By: #### L [id number] ####[facility] ([facility])[address] [place] [place] [address] Hematocrit (Bld) [Volume fraction] 26 % Low 38-51 [facility] Comment on above: Performed By: #### L [id number] ####[facility] ([facility])[address] [place] [place] [address] Hemoglobin (Bld) [Mass/Vol] 8.8 g/dL Low 12.0-17.0 [facility] Comment on above: Performed By: #### L [id number] ####[facility] ([facility])[address] [place] [address] POCT BASE EXCESS -2.0 mmol/L Normal -2.0-3.0 [facility] Comment on above: Performed By: #### L [id number] ####[facility] ([facility])[address] [place] [address] POCT IONIZED CALCIUM 1.00 mmol/L Low 1.12-1.32 [facility] Comment on above: Performed By: #### L [id number] ####[facility] ([facility])[address] [place] [place] [address] POCT PCO2 43.4 mmHg Normal 41.0-51.0 [facility] Comment on above: Performed By: #### L [id number] ####[facility] ([facility])[address] [place] [address] POCT PH 7.35 Normal 7.31-7.41 [facility] Comment on above: Performed By: #### L [id number] ####[facility] ([facility])[address] [place] [place] [address] POCT PO2 485 mmHg High 80-105 [facility] Comment on above: Performed By: #### L [id number] ####[facility] ([facility])[address] [place] [address] POCT SO2 100 % High 95-98 [facility] Comment on above: Performed By: #### L [id number] ####[facility] ([facility])[address] [place] [address] Potassium [Moles/Vol] 4.5 mmol/L Normal 3.5-4.9 [facility] Comment on above: Performed By: #### L [id number] ####[facility] ([facility])[address] [place] [address] Sodium [Moles/Vol] 136 mmol/L Low 138.0-146.0 [facility] Comment on above: Performed By: #### L [id number] ####[facility] ([facility])[address] [place] [address] CO2 [Moles/Vol] 26.0 mmol/L Normal 21.0-29.0 [facility] Comment on above: Performed By: #### L [id number] ####[facility] ([facility])[address] [place] [address] Glucose [Mass/Vol] 188 mg/dL High 70-105 [facility] Comment on above: Performed By: #### L [id number] ####[facility] ([facility])[address] [place] [address] HCO3 (Bld) [Moles/Vol] 24.0 mmol/L Normal 23.0-28.0 [facility] Comment on above: Performed By: #### L [id number] ####[facility] ([facility])[address] [address] Hematocrit (Bld) [Volume fraction] 26 % Low 38-51 [facility] Comment on above: Performed By: #### L [id number] ####[facility] ([facility])[address] [address] Hemoglobin (Bld) [Mass/Vol] 8.8 g/dL Low 12.0-17.0 [facility] Comment on above: Performed By: #### L [id number] ####[facility] ([facility])[address] [address] POCT BASE EXCESS -3.0 mmol/L Low -2.0-3.0 [facility] Comment on above: Performed By: #### L [id number] ####[facility] ([facility])[address] [address] POCT IONIZED CALCIUM 0.96 mmol/L Low 1.12-1.32 [facility] Comment on above: Performed By: #### L [id number] ####[facility] ([facility])[address] [address] POCT PCO2 52.1 mmHg High 41.0-51.0 [facility] Comment on above: Performed By: #### L [id number] ####[facility] ([facility])[address] [address] POCT PH 7.27 Low 7.31-7.41 [facility] Comment on above: Performed By: #### L [id number] ####[facility] ([facility])[address] [address] POCT PO2 468 mmHg High 80-105 [facility] Comment on above: Performed By: #### L [id number] ####[facility] ([facility])[address] [address] POCT SO2 100 % High 95-98 [facility] Comment on above: Performed By: #### L [id number] ####[facility] ([facility])[address] [place] [address] Potassium [Moles/Vol] 5.3 mmol/L High 3.5-4.9 [facility] Comment on above: Performed By: #### L [id number] ####[facility] ([facility])[address] [place] [address] Sodium [Moles/Vol] 135 mmol/L Low 138.0-146.0 [facility] Comment on above: Performed By: #### L [id number] ####[facility] ([facility])[address] [place] [address] CO2 [Moles/Vol] 25.0 mmol/L Normal 21.0-29.0 [facility] Comment on above: Performed By: #### L [id number] ####[facility] ([facility])[address] [place] [address] Glucose [Mass/Vol] 167 mg/dL High 70-105 [facility] Comment on above: Performed By: #### L [id number] ####[facility] ([facility])[address] [place] [address] HCO3 (Bld) [Moles/Vol] 23.3 mmol/L Normal 23.0-28.0 [facility] Comment on above: Performed By: #### L [id number] ####[facility] ([facility])[address] [place] [address] Hematocrit (Bld) [Volume fraction] 40 % Normal 38-51 [facility] Comment on above: Performed By: #### L [id number] ####[facility] ([facility])[address] [place] [address] Hemoglobin (Bld) [Mass/Vol] 13.6 g/dL Normal 12.0-17.0 [facility] Comment on above: Performed By: #### L [id number] ####[facility] ([facility])[address] [place] [address] POCT BASE EXCESS -3.0 mmol/L Low -2.0-3.0 [facility] Comment on above: Performed By: #### L [id number] ####[facility] ([facility])[address] [place] [place] [address] POCT IONIZED CALCIUM 1.15 mmol/L Normal 1.12-1.32 [facility] Comment on above: Performed By: #### L [id number] ####[facility] ([facility])[address] [address] POCT PCO2 47.5 mmHg Normal 41.0-51.0 [facility] Comment on above: Performed By: #### L [id number] ####[facility] ([facility])[address] [place] [place] [address] POCT PH 7.30 Low 7.31-7.41 [facility] Comment on above: Performed By: #### L [id number] ####[facility] ([facility])[address] [place] [place] [address] POCT PO2 173 mmHg High 80-105 [facility] Comment on above: Performed By: #### L [id number] ####[facility] ([facility])[address] [place] [place] [address] POCT SO2 99 % High 95-98 [facility] Comment on above: Performed By: #### L [id number] ####[facility] ([facility])[address] [place] [address] Potassium [Moles/Vol] 4.3 mmol/L Normal 3.5-4.9 [facility] Comment on above: Performed By: #### L [id number] ####[facility] ([facility])[address] [place] [address] Sodium [Moles/Vol] 136 mmol/L Low 138.0-146.0 [facility] Comment on above: Performed By: #### L [id number] ####[facility] ([facility])[address] [place] [address] CO2 [Moles/Vol] 23.0 mmol/L Normal 21.0-29.0 [facility] Comment on above: Performed By: #### L [id number] ####[facility] ([facility])[address] [place] [address] Glucose [Mass/Vol] 120 mg/dL High 70-105 [facility] Comment on above: Performed By: #### L [id number] ####[facility] ([facility])[address] [place] [address] HCO3 (Bld) [Moles/Vol] 21.8 mmol/L Low 23.0-28.0 [facility] Comment on above: Performed By: #### L [id number] ####[facility] ([facility])[address] [place] [address] Hematocrit (Bld) [Volume fraction] 39 % Normal 38-51 [facility] Comment on above: Performed By: #### L [id number] ####[facility] ([facility])[address] [place] [address] Hemoglobin (Bld) [Mass/Vol] 13.3 g/dL Normal 12.0-17.0 [facility] Comment on above: Performed By: #### L [id number] ####[facility] ([facility])[address] [place] [address] POCT BASE EXCESS -3.0 mmol/L Low -2.0-3.0 [facility] Comment on above: Performed By: #### L [id number] ####[facility] ([facility])[address] [place] [place] [address] POCT IONIZED CALCIUM 1.13 mmol/L Normal 1.12-1.32 [facility] Comment on above: Performed By: #### L [id number] ####[facility] ([facility])[address] [place] [place] [address] POCT PCO2 36.4 mmHg Low 41.0-51.0 [facility] Comment on above: Performed By: #### L [id number] ####[facility] ([facility])[address] [place] [place] [address] POCT PH 7.39 Normal 7.31-7.41 [facility] Comment on above: Performed By: #### L [id number] ####[facility] ([facility])[address] [place] [place] [address] POCT PO2 228 mmHg High 80-105 [facility] Comment on above: Performed By: #### L [id number] ####[facility] ([facility])[address] [place] [address] POCT SO2 100 % High 95-98 [facility] Comment on above: Performed By: #### L [id number] ####[facility] ([facility])[address] [place] [address] Potassium [Moles/Vol] 4.0 mmol/L Normal 3.5-4.9 [facility] Comment on above: Performed By: #### L [id number] ####[facility] ([facility])[address] [place] [address] Sodium [Moles/Vol] 138 mmol/L Normal 138.0-146.0 [facility] Comment on above: Performed By: #### L [id number] ####[facility] ([facility])[address] [place] [address] PROTIME-INRon 12-15-2023 INR IN PPP BY COAGULATION ASSAY 1.24 High 0.90-1.10 [facility] Comment on above: Result Comment: ACCC [...] CHEST 1995;[id number]. Performed By: #### L [id number] ####[facility] ([facility])[address] [place] [address] PROTHROMBIN TIME (PT) IN PPP BY COAGULATION ASSAY 15.5 Seconds High 12.3-14.8 [facility] Comment on above: Performed By: #### L [id number] ####[facility] ([facility])[address] [place] [address] TYPE AND SCREENon 12-15-2023 AB SCREEN Negative Normal [facility] Comment on above: Performed By: #### L [id number] ####[facility], ABO group Nom (Bld) A Normal [facility] Comment on above: Performed By: #### L [id number] ####[facility], RH TYPE IN BLOOD Positive Normal [facility] Comment on above: Performed By: #### L [id number] ####[facility], 30on 12-14-2023 30 The patient is Moder ately Stable - Low risk of patient condition declining or worsening The patient's goals for the shift include sleep prior to CABG The clinical goals for the shift include vss Normal [facility] 30 Normal [facility] ANESon 12-14-2023 ANES Normal [facility] ANTI-XA (HEPARIN LEVEL)on HEPARIN UNFRACTIONATED (U/ML) IN PPP BY CHROMOGENIC METHOD 0.55 IU/mL Normal 0.3-0.7 [facility] Comment on above: Result Comment: Rosa roxaban and Apixaban will interfere with the anti Xa assay used to monitor UFH and LMWH. Performed By: #### L [id number] ####[facility] ([facility])[address] [place] [address] BASIC METABOLIC PANELon 09-2 Anion gap [Moles/Vol] 12 mmol/L Normal 7-20 [facility] Comment on above: Performed By: #### L [id number] ####[facility] ([facility])[address] [place], [place] [address] Calcium [Mass/Vol] 8.9 mg/dL Normal 8.6-10.3 [facility] Comment on above: Performed By: #### L [id number] ####[facility] ([facility])[address] [place] [address] Chloride [Moles/Vol] 101 mmol/L Normal 98-107 [facility] Comment on above: Performed By: #### L [id number] ####[facility] ([facility])[address] [place] [address] CO2 [Moles/Vol] 26 mmol/L Normal 21-31 [facility] Comment on above: Performed By: #### L [id number] ####[facility] ([facility])[address] [place] [address] Creatinine [Mass/Vol] 0.83 mg/dL Normal 0.60-1.20 [facility] Comment on above: Performed By: #### L [id number] ####[facility] ([facility])[address] [place] [address] GLOMERULAR FILTRATION RATE ML/MIN/1.73 SQ M.PREDICTED 79.7 mL/min/1.73m*2 Normal >60.0 [facility] Comment on above: Result Comment: [facility]???s estimated glomerular filtration rate (eGFR) will [...] of individuals. Performed By: #### L [id number] ####[facility] ([facility])[address] [place] [address] Glucose [Mass/Vol] 170 mg/dL High 70-100 [facility] Comment on above: Performed By: #### L [id number] ####[facility] ([facility])[address] [place] [address] Potassium [Moles/Vol] 4.6 mmol/L Normal 3.5-5.1 [facility] Comment on above: Performed By: #### L [id number] ####[facility] ([facility])[address] [place] [address] Sodium [Moles/Vol] 134 mmol/L Low 136-145 [facility] Comment on above: Performed By: #### L [id number] ####[facility] ([facility])[address] [place] [address] Urea nitrogen [Mass/Vol] 17 mg/dL Normal 7-25 [facility] Comment on above: Performed By: #### L [id number] ####[facility] ([facility])[address] [place] [address] UREA NITROGEN/CREATININE (MASS RATIO) IN SER/PLAS 20.5 [facility] Comment on above: Performed By: #### L [id number] ####[facility] ([facility])[address] [place] [address] 30on 12-13-2023 30 Normal [facility] 30 [facility] ANTI-XA (HEPARIN LEVEL)on HEPARIN UNFRACTIONATED (U/ML) IN PPP BY CHROMOGENIC METHOD 0.49 IU/mL Normal 0.3-0.7 [facility] Comment on above: Result Comment: Rosa roxaban and Apixaban will interfere with the anti Xa assay used to monitor UFH and LMWH. Performed By: #### L [id number] ####[facility] ([facility])[address] [place] [address] HEPARIN UNFRACTIONATED (U/ML) IN PPP BY CHROMOGENIC METHOD 0.60 IU/mL Normal 0.3-0.7 [facility] Comment on above: Result Comment: Rosa roxaban and Apixaban will interfere with the anti Xa assay used to monitor UFH and LMWH. Performed By: #### L [id number] ####[facility] ([facility])[address] [place] [address] HEPARIN UNFRACTIONATED (U/ML) IN PPP BY CHROMOGENIC METHOD 0.70 IU/mL Normal 0.3-0.7 [facility] Comment on above: Order Comment: Check anti-Xa level every 6 hours while on heparin infusion, or per protocol. Result Comment: [place] roxaban and Apixaban will interfere with the anti Xa assay used to monitor UFH and LMWH. Performed By: #### L [id number] ####[facility] ([facility])[address] [place] [address] HEPARIN UNFRACTIONATED (U/ML) IN PPP BY CHROMOGENIC METHOD 0.90 IU/mL Critically high 0.3-0.7 [facility] Comment on above: Order Comment: Check anti-Xa level every 6 hours while on heparin infusion, or per protocol. Result Comment: Rosa roxaban and Apixaban will interfere with the anti Xa assay used to monitor UFH and LMWH. Performed By: #### L [id number] ####[facility] ([facility])[address] [place] [address] BASIC METABOLIC PANELon 09- Anion gap [Moles/Vol] 10 mmol/L Normal 7-20 [facility] Comment on above: Performed By: #### L [id number] ####[facility] ([facility])[address] [place] [address] Calcium [Mass/Vol] 8.6 mg/dL Normal 8.6-10.3 [facility] Comment on above: Performed By: #### L [id number] ####[facility] ([facility])[address] [place] [address] Chloride [Moles/Vol] 101 mmol/L Normal 98-107 [facility] Comment on above: Performed By: #### L [id number] ####[facility] ([facility])[address] [place], [place] [address] CO2 [Moles/Vol] 27 mmol/L Normal 21-31 [facility] Comment on above: Performed By: #### L [id number] ####[facility] ([facility])[address] [place] [address] Creatinine [Mass/Vol] 0.85 mg/dL Normal 0.60-1.20 [facility] Comment on above: Performed By: #### L [id number] ####[facility] ([facility])[address] [place] [address] GLOMERULAR FILTRATION RATE ML/MIN/1.73 SQ M.PREDICTED 77.4 mL/min/1.73m*2 Normal >60.0 [facility] Comment on above: Result Comment: [facility]???s estimated glomerular filtration rate (eGFR) will [...] of individuals. Performed By: #### L [id number] ####[facility] ([facility])[address] [place] [address] Glucose [Mass/Vol] 133 mg/dL High 70-100 [facility] Comment on above: Performed By: #### L [id number] ####[facility] ([facility])[address] [place] [address] Potassium [Moles/Vol] 4.1 mmol/L Normal 3.5-5.1 [facility] Comment on above: Performed By: #### L [id number] ####[facility] ([facility])[address] [place] [place] [address] Sodium [Moles/Vol] 134 mmol/L Low 136-145 [facility] Comment on above: Performed By: #### L [id number] ####[facility] ([facility])[address] [place] [place] [address] Urea nitrogen [Mass/Vol] 21 mg/dL Normal 7-25 [facility] Comment on above: Performed By: #### L [id number] ####[facility] ([facility])[address] [place] [place] [address] UREA NITROGEN/CREATININE (MASS RATIO) IN SER/PLAS 24.7 Normal [facility] Comment on above: Performed By: #### L [id number] ####[facility] ([facility])[address] [place] [place] [address] CBCon 12-13-2023 Erythrocyte distribution width (RBC) [Ratio] 12.6 % Normal 11.5-15.0 [facility] Comment on above: Performed By: #### L [id number] ####[facility] ([facility])[address] [place] [place] [address] ERYTHROCYTE MEAN CORPUSCULAR HEMOGLOBIN CONCENTRATION (G/DL) BY AUTOMATED 33.8 g/dL Normal 32.0-35.0 [facility] Comment on above: Performed By: #### L [id number] ####[facility] ([facility])[address] [place] [place] [address] Hematocrit (Bld) [Volume fraction] 39.9 % Normal 36.0-48.0 [facility] Comment on above: Performed By: #### L [id number] ####[facility] ([facility])[address] [place] [place] [address] Hemoglobin (Bld) [Mass/Vol] 13.5 g/dL Normal 12.0-15.0 [facility] Comment on above: Performed By: #### L [id number] ####[facility] ([facility])[address] [place] [place] [address] MCH (RBC) [Entitic mass] 31.5 pg Normal 27.0-33.0 [facility] Comment on above: Performed By: #### L [id number] ####[facility] ([facility])[address] [place] [place] [address] MCV (RBC) [Entitic vol] 93.2 fL Normal 82.0-98.0 [facility] Comment on above: Performed By: #### L [id number] ####[facility] ([facility])[address] [place] [address] PLATELETS (10*3/UL) IN BLOOD AUTOMATED COUNT 196 10*3/uL Normal 150-400 [facility] Comment on above: Performed By: #### L [id number] ####[facility] ([facility])[address] [place] [place] [address] RBC (Bld) [#/Vol] 4.28 10*6/uL Normal 3.80-5.00 [facility] Comment on above: Performed By: #### L [id number] ####[facility] ([facility])[address] [place] [place] [address] WBC (Bld) [#/Vol] 5.64 10*3/uL Normal 4.00-10.60 [facility] Comment on above: Performed By: #### L [id number] ####[facility] ([facility])[address] [place] [place] [address] 30on 12-12-2023 30 Normal [facility] 30 Normal [facility] 30 Normal [facility] ANTI-XA (HEPARIN LEVEL)on HEPARIN UNFRACTIONATED (U/ML) IN PPP BY CHROMOGENIC METHOD 0.89 IU/mL High 0.3-0.7 [facility] Comment on above: Order Comment: Check anti-Xa level every 6 hours while on heparin infusion, or per protocol. Result Comment: [place] roxaban and Apixaban will interfere with the anti Xa assay used to monitor UFH and LMWH. Performed By: #### L [id number] ####[facility] ([facility])[address] [place] [address] HEPARIN UNFRACTIONATED (U/ML) IN PPP BY CHROMOGENIC METHOD 0.97 IU/mL Critically high 0.3-0.7 [facility] Comment on above: Result Comment: [place] roxaban and Apixaban will interfere with the anti Xa assay used to monitor UFH and LMWH. Performed By: #### L [id number] ####[facility] ([facility])[address] [place] [address] HEPARIN UNFRACTIONATED (U/ML) IN PPP BY CHROMOGENIC METHOD <0.10 Invalid Interpretation Code 0.3-0.7 [facility] Comment on above: Order Comment: Check anti-Xa level every 6 hours while on heparin infusion, or per protocol. Result Comment: [place] roxaban and Apixaban will interfere with the anti Xa assay used to monitor UFH and LMWH. Performed By: #### L [id number] ####[facility] ([facility])[address] [place] [address] HEPARIN UNFRACTIONATED (U/ML) IN PPP BY CHROMOGENIC METHOD <0.10 Invalid Interpretation Code 0.3-0.7 [facility] Comment on above: Order Comment: Check anti-Xa level every 6 hours while on heparin infusion, or per protocol. Result Comment: [place] roxaban and Apixaban will interfere with the anti Xa assay used to monitor UFH and LMWH. Performed By: #### L [id number] ####[facility] ([facility])[address] [place] [address] Abstracton 12-12-2023 Abstract [facility] Anesthesiaon 12-12-2023 Anesthesia [facility] HPon 12-12-2023 HP H&P reviewed. The edward garcia was examined and there are no changes to the H&P. [facility] NURSNOTEon 12-12-2023 NURSNOTE Manager Environmental Affairs informed by Diamond ENGLE RN patients CABG was cancelled today. Patient will be returning to unit shortly. [facility] NURSNOTE Patient was transpor [place] to OR for surgery before 7am. Normal [facility] 30on 12-11-2023 30 Normal [facility] 30 Normal [facility] 30 Normal [facility] APTTon 12-11-2023 ACTIVATED PARTIAL THROMBOPLASTIN TIME IN PPP BY COAGULATION ASSAY 88.0 Seconds High 25.0-35.0 [facility] Comment on above: Order Comment: Basel ine aPTT before initiating heparin infusion. Result Comment: Clin ical significance of the APTT is questionable in the presence of heparin. Performed By: #### L [id number] ####[facility] ([facility])[address] [place] [address] ACTIVATED PARTIAL THROMBOPLASTIN TIME IN PPP BY COAGULATION ASSAY 87.2 Seconds High 25.0-35.0 [facility] Comment on above: Result Comment: Clin ical significance of the APTT is questionable in the presence of heparin. Performed By: #### L [id number] ####[facility] ([facility])[address] [place] [address] BASIC METABOLIC PANELon 11-22 Anion gap [Moles/Vol] 17 mmol/L Normal 7-20 [facility] Comment on above: Performed By: #### L [id number] ####[facility] ([facility])[address] [place] [address] Calcium [Mass/Vol] 9.2 mg/dL Normal 8.6-10.3 [facility] Comment on above: Performed By: #### L [id number] ####[facility] ([facility])[address] [place] [address] Chloride [Moles/Vol] 101 mmol/L Normal 98-107 [facility] Comment on above: Performed By: #### L [id number] ####[facility] ([facility])[address] [place] [address] CO2 [Moles/Vol] 19 mmol/L Low 21-31 [facility] Comment on above: Performed By: #### L [id number] ####[facility] ([facility])[address] [place] [place] [address] Creatinine [Mass/Vol] 0.96 mg/dL Normal 0.60-1.20 [facility] Comment on above: Performed By: #### L [id number] ####[facility] ([facility])[address] [place] [place] [address] GLOMERULAR FILTRATION RATE ML/MIN/1.73 SQ M.PREDICTED 66.9 mL/min/1.73m*2 Normal >60.0 [facility] Comment on above: Result Comment: [facility]???s estimated glomerular filtration rate (eGFR) will [...] of individuals. Performed By: #### L [id number] ####[facility] ([facility])[address] [place] [place] [address] Glucose [Mass/Vol] 108 mg/dL High 70-100 [facility] Comment on above: Performed By: #### L [id number] ####[facility] ([facility])[address] [place] [place] [address] Potassium [Moles/Vol] 5.1 mmol/L Normal 3.5-5.1 [facility] Comment on above: Performed By: #### L [id number] ####[facility] ([facility])[address] [place] [place] [address] Sodium [Moles/Vol] 132 mmol/L Low 136-145 [facility] Comment on above: Performed By: #### L [id number] ####[facility] ([facility])[address] [place] [place] [address] Urea nitrogen [Mass/Vol] 19 mg/dL Normal 7-25 [facility] Comment on above: Performed By: #### L [id number] ####[facility] ([facility])[address] [place] [place] [address] UREA NITROGEN/CREATININE (MASS RATIO) IN SER/PLAS 19.8 Normal [facility] Comment on above: Performed By: #### L [id number] ####[facility] ([facility])[address] [place] [place] [address] CBCon 12-11-2023 Erythrocyte distribution width (RBC) [Ratio] 12.6 % Normal 11.5-15.0 [facility] Comment on above: Performed By: #### L [id number] ####[facility] ([facility])[address] [place] [address] ERYTHROCYTE MEAN CORPUSCULAR HEMOGLOBIN CONCENTRATION (G/DL) BY AUTOMATED 34.1 g/dL Normal 32.0-35.0 [facility] Comment on above: Performed By: #### L [id number] ####[facility] ([facility])[address] [place] [address] Hematocrit (Bld) [Volume fraction] 42.2 % Normal 36.0-48.0 [facility] Comment on above: Performed By: #### L [id number] ####[facility] ([facility])[address] [place] [address] Hemoglobin (Bld) [Mass/Vol] 14.4 g/dL Normal 12.0-15.0 [facility] Comment on above: Performed By: #### L [id number] ####[facility] ([facility])[address] [place] [address] MCH (RBC) [Entitic mass] 30.8 pg Normal 27.0-33.0 [facility] Comment on above: Performed By: #### L [id number] ####[facility] ([facility])[address] [place] [address] MCV (RBC) [Entitic vol] 90.2 fL Normal 82.0-98.0 [facility] Comment on above: Performed By: #### L [id number] ####[facility] ([facility])[address] [place] [place] [address] PLATELETS (10*3/UL) IN BLOOD AUTOMATED COUNT 182 10*3/uL Normal 150-400 [facility] Comment on above: Performed By: #### L [id number] ####[facility] ([facility])[address] [place] [place] [address] RBC (Bld) [#/Vol] 4.68 10*6/uL Normal 3.80-5.00 [facility] Comment on above: Performed By: #### L [id number] ####[facility] ([facility])[address] [place] [place] [address] WBC (Bld) [#/Vol] 6.23 10*3/uL Normal 4.00-10.60 [facility] Comment on above: Performed By: #### L [id number] ####[facility] ([facility])[address] [place] [place] [address] CBC WITH AUTO DIFFERENTIALon 12-11-2023 Basophils (Bld) [#/Vol] 0.07 10*3/uL Normal 0.00-0.20 [facility] Comment on above: Performed By: #### L [id number] ####[facility] ([facility])[address] [place] [address] Basophils/100 WBC (Bld) 1.1 % High 0.0-1.0 [facility] Comment on above: Performed By: #### L [id number] ####[facility] ([facility])[address] [place] [place] [address] Eosinophils (Bld) [#/Vol] 0.02 10*3/uL Normal 0.00-0.50 [facility] Comment on above: Performed By: #### L [id number] ####[facility] ([facility])[address] [place] [address] Eosinophils/100 WBC (Bld) 0.3 % Normal 0.0-6.0 [facility] Comment on above: Performed By: #### L [id number] ####[facility] ([facility])[address] [place] [place] [address] Erythrocyte distribution width (RBC) [Ratio] 12.6 % Normal 11.5-15.0 [facility] Comment on above: Performed By: #### L [id number] ####[facility] ([facility])[address] [place] [place] [address] ERYTHROCYTE MEAN CORPUSCULAR HEMOGLOBIN CONCENTRATION (G/DL) BY AUTOMATED 33.7 g/dL Normal 32.0-35.0 [facility] Comment on above: Performed By: #### L [id number] ####[facility] ([facility])[address] [place] [place] [address] Hematocrit (Bld) [Volume fraction] 45.1 % Normal 36.0-48.0 [facility] Comment on above: Performed By: #### L [id number] ####[facility] ([facility])[address] [place] [place] [address] Hemoglobin (Bld) [Mass/Vol] 15.2 g/dL High 12.0-15.0 [facility] Comment on above: Performed By: #### L [id number] ####[facility] ([facility])[address] [place] [place] [address] Immature granulocytes (Bld) [#/Vol] 0.04 10*3/uL Normal 0.00-0.20 [facility] Comment on above: Performed By: #### L [id number] ####[facility] ([facility])[address] [place] [place] [address] Immature granulocytes/100 WBC (Bld) 0.6 % Normal 0.0-1.0 [facility] Comment on above: Performed By: #### L [id number] ####[facility] ([facility])[address] [place] [place] [address] Lymphocytes (Bld) [#/Vol] 1.44 10*3/uL Normal 1.20-4.00 [facility] Comment on above: Performed By: #### L [id number] ####[facility] ([facility])[address] [place] [address] Lymphocytes/100 WBC (Bld) 21.8 % Normal 20.0-45.0 [facility] Comment on above: Performed By: #### L [id number] ####[facility] ([facility])[address] [place] [place] [address] MCH (RBC) [Entitic mass] 31.5 pg Normal 27.0-33.0 [facility] Comment on above: Performed By: #### L [id number] ####[facility] ([facility])[address] [place] [place] [address] MCV (RBC) [Entitic vol] 93.6 fL Normal 82.0-98.0 [facility] Comment on above: Performed By: #### L [id number] ####[facility] ([facility])[address] [place] [place] [address] Monocytes (Bld) [#/Vol] 0.46 10*3/uL Normal 0.10-1.00 [facility] Comment on above: Performed By: #### L [id number] ####[facility] ([facility])[address] [place] [place] [address] Monocytes/100 WBC (Bld) 7.0 % Normal 5.0-12.0 [facility] Comment on above: Performed By: #### L [id number] ####[facility] ([facility])[address] [place] [place] [address] Neutrophils (Bld) [#/Vol] 4.57 10*3/uL Normal 1.60-7.60 [facility] Comment on above: Performed By: #### L [id number] ####[facility] ([facility])[address] [place] [address] Neutrophils/100 WBC (Bld) 69.2 % Normal 40.0-72.0 [facility] Comment on above: Performed By: #### L [id number] ####[facility] ([facility])[address] [place] [place] [address] NRBC (PER 100 WBCS) BY AUTOMATED COUNT 0.0 % Normal 0 [facility] Comment on above: Performed By: #### L [id number] ####[facility] ([facility])[address] [place] [address] PLATELETS (10*3/UL) IN BLOOD AUTOMATED COUNT 207 10*3/uL Normal 150-400 [facility] Comment on above: Performed By: #### L [id number] ####[facility] ([facility])[address] [place] [address] RBC (Bld) [#/Vol] 4.82 10*6/uL Normal 3.80-5.00 [facility] Comment on above: Performed By: #### L [id number] ####[facility] ([facility])[address] [place] [address] WBC (Bld) [#/Vol] 6.60 10*3/uL Normal 4.00-10.60 [facility] Comment on above: Performed By: #### L [id number] ####[facility] ([facility])[address] [place] [address] MAGNESIUMon 12-11-2023 Magnesium [Mass/Vol] 2.2 mg/dL Normal 1.9-2.7 [facility] Comment on above: Performed By: #### L [id number] ####[facility] ([facility])[address] [place] [address] MRSA/MSSA DNA NASALon 2023 MRSA DNA Negative Normal Negative [facility] Comment on above: Order Comment: Testi [...] preclude nasal colonization. Performed By: #### L [id number] ####[facility] ([facility])[address] [place] [address] MSSA DNA Negative Normal Negative [facility] Comment on above: Order Comment: Christina mercado [...] preclude nasal colonization. Performed By: #### L [id number] ####[facility] ([facility])[address] [place] [address] PHOSPHORUSon 12-11-2023 Magnesium [Mass/Vol] 4.5 mg/dL Normal 2.5-5.0 [facility] Comment on above: Performed By: #### L [id number] ####[facility] ([facility])[address] [place] [address] PROTIME-INRon 12-11-2023 INR IN PPP BY COAGULATION ASSAY 0.99 Normal 0.90-1.10 [facility] Comment on above: Result Comment: ACCC [...] CHEST 1995;[id number]. Performed By: #### L [id number] ####[facility] ([facility])[address] [place] [address] PROTHROMBIN TIME (PT) IN PPP BY COAGULATION ASSAY 13.1 Seconds Normal 12.3-14.8 [facility] Comment on above: Performed By: #### L [id number] ####[facility] ([facility])[address] [place] [address] TYPE AND SCREENon 12-11-2023 AB SCREEN Negative Normal [facility] Comment on above: Performed By: #### L [id number] ####[facility], ABO group Nom (Bld) A Normal [facility] Comment on above: Performed By: #### L [id number] ####[facility], RH TYPE IN BLOOD Positive Normal [facility] Comment on above: Performed By: #### L [id number] ####[facility], URINALYSIS MICROSCOPIC WITH REFLEX CULTUREon 12-11-2023 CASTS IN URINE Normal [facility] Comment on above: Performed By: #### L [id number] ####[facility] ([facility])[address] [place] [address] CRYSTALS IN URINE Normal [facility] Comment on above: Performed By: #### L [id number] ####[facility] ([facility])[address] [place] [address] OTHER MICROSCOPIC ELEMENTS Normal [facility] Comment on above: Performed By: #### L [id number] ####[facility] ([facility] [place] [address] RBC (#/HPF) IN URINE SEDIMENT 0-2 Abnormal None Seen [facility] Comment on above: Performed By: #### L [id number] ####[facility] ([facility])[address] [place] [address] SQUAMOUS EPITHELIAL CELLS (#/HPF) IN URINE SEDIMENT Many Abnormal None Seen, Occasional [facility] Comment on above: Performed By: #### L [id number] ####[facility] ([facility])[address] [place] [address] WBC (LEUKOCYTE) (#/HPF) IN URINE SEDIMENT 51-100 Abnormal None Seen [facility] Comment on above: Performed By: #### L [id number] ####[facility] ([facility])[address] [place] [address] URINALYSIS WITH REFLEX CULTU REon 12-11-2023 BILIRUBIN, TOTAL PRESENCE IN URINE Negative Normal Negative [facility] Comment on above: Performed By: #### L [id number] ####[facility] ([facility])[address] [place] [address] Clarity (U) Slightly Cloudy Abnormal Clear [facility] Comment on above: Performed By: #### L [id number] ####[facility] ([facility])[address] [place] [address] Color (U) Yellow Normal Yellow [facility] Comment on above: Performed By: #### L [id number] ####[facility] ([facility])[address] [place] [address] Glucose (U) [Mass/Vol] Negative Normal [facility] Comment on above: Performed By: #### L [id number] ####[facility] ([facility])[address] [place] [address] HEMOGLOBIN PRESENCE IN URINE Negative Normal Negative [facility] Comment on above: Performed By: #### L [id number] ####[facility] ([facility])[address] [place] [address] Ketones Ql (U) Trace Abnormal Negative [facility] Comment on above: Performed By: #### L [id number] ####[facility] ([facility])[address] [place] [address] LEUKOCYTE ESTERASE PRESENCE IN URINE BY TEST STRIP Moderate Abnormal Negative [facility] Comment on above: Performed By: #### L [id number] ####[facility] ([facility])[address] [place] [address] NITRITE PRESENCE IN URINE Negative Normal Negative [facility] Comment on above: Performed By: #### L [id number] ####[facility] ([facility])[address] [place] [address] pH (U) 6.0 [pH] Normal 5.0-8.0 [facility] Comment on above: Performed By: #### L [id number] ####[facility] ([facility])[address] [place] [address] Protein (U) [Mass/Vol] Negative Normal Negative [facility] Comment on above: Performed By: #### L [id number] ####[facility] ([facility])[address] [place] [address] Specific gravity (U) [Rel density] 1.016 Normal 1.015-1.020 [facility] Comment on above: Performed By: #### L [id number] ####[facility] ([facility])[address] [place] [address] 30on 12-10-2023 30 Normal [facility] 30 Normal [facility] ANTI-XA (HEPARIN LEVEL)on HEPARIN UNFRACTIONATED (U/ML) IN PPP BY CHROMOGENIC METHOD 0.41 IU/mL Normal 0.3-0.7 [facility] Comment on above: Result Comment: Rosa roxaban and Apixaban will interfere with the anti Xa assay used to monitor UFH and LMWH. Performed By: #### L [id number] ####[facility] ([facility])[address] [place] [address] APTTon 12-10-2023 ACTIVATED PARTIAL THROMBOPLASTIN TIME IN PPP BY COAGULATION ASSAY 87.5 Seconds High 25.0-35.0 [facility] Comment on above: Result Comment: Clin ical significance of the APTT is questionable in the presence of heparin. Performed By: #### L [id number] ####[facility] ([facility])[address] [place] [address] BASIC METABOLIC PANELon 11-22 Anion gap [Moles/Vol] 9 mmol/L Normal 7-20 [facility] Comment on above: Performed By: #### L [id number] ####[facility] ([facility])[address] [place] [address] Calcium [Mass/Vol] 9.0 mg/dL Normal 8.6-10.3 [facility] Comment on above: Performed By: #### L [id number] ####[facility] ([facility])[address] [place], [place] [address] Chloride [Moles/Vol] 101 mmol/L Normal 98-107 [facility] Comment on above: Performed By: #### L [id number] ####[facility] ([facility])[address] [place] [address] CO2 [Moles/Vol] 26 mmol/L Normal 21-31 [facility] Comment on above: Performed By: #### L [id number] ####[facility] ([facility])[address] [place], [place] [address] Creatinine [Mass/Vol] 0.85 mg/dL Normal 0.60-1.20 [facility] Comment on above: Performed By: #### L [id number] ####[facility] ([facility])[address] [place], [place] [address] GLOMERULAR FILTRATION RATE ML/MIN/1.73 SQ M.PREDICTED 77.4 mL/min/1.73m*2 Normal >60.0 [facility] Comment on above: Result Comment: The [facility]???s estimated glomerular filtration rate (eGFR) will [...] of individuals. Performed By: #### L [id number] ####[facility] ([facility])[address] [place] [address] Glucose [Mass/Vol] 118 mg/dL High 70-100 [facility] Comment on above: Performed By: #### L [id number] ####[facility] ([facility])[address] [place], [place] [address] Potassium [Moles/Vol] 4.4 mmol/L Normal 3.5-5.1 [facility] Comment on above: Performed By: #### L [id number] ####[facility] ([facility])[address] [place], [place] [address] Sodium [Moles/Vol] 132 mmol/L Low 136-145 [facility] Comment on above: Performed By: #### L [id number] ####[facility] ([facility])[address] [place], [place] [address] Urea nitrogen [Mass/Vol] 15 mg/dL Normal 7-25 [facility] Comment on above: Performed By: #### L [id number] ####[facility] ([facility])[address] [place] [address] UREA NITROGEN/CREATININE (MASS RATIO) IN SER/PLAS 17.6 [facility] Comment on above: Performed By: #### L [id number] ####[facility] ([facility])[address] [place] [address] NURSNOTEon 12-10-2023 NURSNOTE Patient off unit for MRI. Normal [facility] Orders Onlyon 12-10-2023 Orders Only Normal [facility] 30on 12-09-2023 30 Normal [facility] 30 The patient is Moder ately Stable - Low risk of patient condition declining or worsening The patient's goals for the shift include testing The clinical goals for the shift include testing Normal [facility] APTTon 12-09-2023 ACTIVATED PARTIAL THROMBOPLASTIN TIME IN PPP BY COAGULATION ASSAY 90.0 Seconds High 25.0-35.0 [facility] Comment on above: Result Comment: Clin ical significance of the APTT is questionable in the presence of heparin. Performed By: #### L [id number] ####[facility] ([facility])[address] [place] [place] [address] Anesthesiaon 12-09-2023 Anesthesia Normal [facility] CBCon 12-09-2023 Erythrocyte distribution width (RBC) [Ratio] 12.4 % Normal 11.5-15.0 [facility] Comment on above: Performed By: #### L [id number] ####[facility] ([facility])[address] [place] [place] [address] ERYTHROCYTE MEAN CORPUSCULAR HEMOGLOBIN CONCENTRATION (G/DL) BY AUTOMATED 34.2 g/dL Normal 32.0-35.0 [facility] Comment on above: Performed By: #### L [id number] ####[facility] ([facility])[address] [place] [place] [address] Hematocrit (Bld) [Volume fraction] 43.3 % Normal 36.0-48.0 [facility] Comment on above: Performed By: #### L [id number] ####[facility] ([facility])[address] [place] [place] [address] Hemoglobin (Bld) [Mass/Vol] 14.8 g/dL Normal 12.0-15.0 [facility] Comment on above: Performed By: #### L [id number] ####[facility] ([facility])[address] [place] [place] [address] MCH (RBC) [Entitic mass] 31.3 pg Normal 27.0-33.0 [facility] Comment on above: Performed By: #### L [id number] ####[facility] ([facility])[address] [place] [place] [address] MCV (RBC) [Entitic vol] 91.5 fL Normal 82.0-98.0 [facility] Comment on above: Performed By: #### L [id number] ####[facility] ([facility])[address] [place] [address] PLATELETS (10*3/UL) IN BLOOD AUTOMATED COUNT 203 10*3/uL Normal 150-400 [facility] Comment on above: Performed By: #### L [id number] ####[facility] ([facility])[address] [facility] [place] [address] RBC (Bld) [#/Vol] 4.73 10*6/uL Normal 3.80-5.00 [facility] Comment on above: Performed By: #### L [id number] ####[facility] ([facility])[address] [place] [address] WBC (Bld) [#/Vol] 4.95 10*3/uL Normal 4.00-10.60 [facility] Comment on above: Performed By: #### L [id number] ####[facility] ([facility])[address] [place] [address] CONSULTon 12-09-2023 CONSULT Normal [facility] MRI CARDIAC MORPHOLOGY AND F UNCTION W AND WO IV CONTRASTon 12-09-2023 MRI CARDIAC MORPHOLOGY AND FUNCTION W AND WO IV CONTRAST Invalid Interpretation Code [facility] 30on 12-08-2023 30 Normal [facility] 30 Normal [facility] APTTon 12-08-2023 ACTIVATED PARTIAL THROMBOPLASTIN TIME IN PPP BY COAGULATION ASSAY 100.5 Seconds High 25.0-35.0 [facility] Comment on above: Result Comment: Clin ical significance of the APTT is questionable in the presence of heparin. Performed By: #### L [id number] ####[facility] ([facility])[address] [place] [address] Orders Onlyon 12-08-2023 Orders Only [facility] TYPE AND SCREENon 12-08-2023 AB SCREEN Negative Normal [facility] Comment on above: Performed By: #### L [id number] ####[facility], ABO group Nom (Bld) A Normal [facility] Comment on above: Performed By: #### L [id number] ####[facility], RH TYPE IN BLOOD Positive Normal [facility] Comment on above: Performed By: #### L [id number] ####[facility], APTTon 12-07-2023 ACTIVATED PARTIAL THROMBOPLASTIN TIME IN PPP BY COAGULATION ASSAY 83.7 Seconds High 25.0-35.0 [facility] Comment on above: Result Comment: Clin ical significance of the APTT is questionable in the presence of heparin. Performed By: #### L [id number] ####[facility] ([facility])[address] [place] [place] [address] ACTIVATED PARTIAL THROMBOPLASTIN TIME IN PPP BY COAGULATION ASSAY 84.7 Seconds High 25.0-35.0 [facility] Comment on above: Result Comment: Clin ical significance of the APTT is questionable in the presence of heparin. Performed By: #### L [id number] ####[facility] ([facility])[address] [place] [place] [address] ACTIVATED PARTIAL THROMBOPLASTIN TIME IN PPP BY COAGULATION ASSAY 94.5 Seconds High 25.0-35.0 [facility] Comment on above: Result Comment: Clin ical significance of the APTT is questionable in the presence of heparin. Performed By: #### L [id number] ####[facility] ([facility])[address] [place] [place] [address] CBCon 12-07-2023 Erythrocyte distribution width (RBC) [Ratio] 12.5 % Normal 11.5-15.0 [facility] Comment on above: Performed By: #### L [id number] ####[facility] ([facility])[address] [place] [address] ERYTHROCYTE MEAN CORPUSCULAR HEMOGLOBIN CONCENTRATION (G/DL) BY AUTOMATED 34.2 g/dL Normal 32.0-35.0 [facility] Comment on above: Performed By: #### L [id number] ####[facility] ([facility])[address] [place] [address] Hematocrit (Bld) [Volume fraction] 42.7 % Normal 36.0-48.0 [facility] Comment on above: Performed By: #### L [id number] ####[facility] ([facility])[address] [place] [address] Hemoglobin (Bld) [Mass/Vol] 14.6 g/dL Normal 12.0-15.0 [facility] Comment on above: Performed By: #### L [id number] ####[facility] ([facility])[address] [place] [place] [address] MCH (RBC) [Entitic mass] 31.5 pg Normal 27.0-33.0 [facility] Comment on above: Performed By: #### L [id number] ####[facility] ([facility])[address] [place] [place] [address] MCV (RBC) [Entitic vol] 92.0 fL Normal 82.0-98.0 [facility] Comment on above: Performed By: #### L [id number] ####[facility] ([facility])[address] [place] [place] [address] PLATELETS (10*3/UL) IN BLOOD AUTOMATED COUNT 221 10*3/uL Normal 150-400 [facility] Comment on above: Performed By: #### L [id number] ####[facility] ([facility])[address] [place] [place] [address] RBC (Bld) [#/Vol] 4.64 10*6/uL Normal 3.80-5.00 [facility] Comment on above: Performed By: #### L [id number] ####[facility] ([facility])[address] [place] [place] [address] WBC (Bld) [#/Vol] 4.68 10*3/uL Normal 4.00-10.60 [facility] Comment on above: Performed By: #### L [id number] ####[facility] ([facility])[address] [place] [place] [address] 30on 12-06-2023 30 Normal [facility] APTTon 12-06-2023 ACTIVATED PARTIAL THROMBOPLASTIN TIME IN PPP BY COAGULATION ASSAY >200.0 Critically high 25.0-35.0 [facility] Comment on above: Result Comment: Clin ical significance of the APTT is questionable in the presence of heparin. Performed By: #### L [id number] ####[facility] ([facility])[address] [place] [address] BASIC METABOLIC PANELon 11-22 Anion gap [Moles/Vol] 10 mmol/L Normal 7-20 [facility] Comment on above: Performed By: #### L [id number] ####[facility] ([facility])[address] [place] [address] Calcium [Mass/Vol] 8.9 mg/dL Normal 8.6-10.3 [facility] Comment on above: Performed By: #### L [id number] ####[facility] ([facility])[address] [place] [address] Chloride [Moles/Vol] 104 mmol/L Normal 98-107 [facility] Comment on above: Performed By: #### L [id number] ####[facility] ([facility])[address] [place] [address] CO2 [Moles/Vol] 27 mmol/L Normal 21-31 [facility] Comment on above: Performed By: #### L [id number] ####[facility] ([facility])[address] [place] [address] Creatinine [Mass/Vol] 0.74 mg/dL Normal 0.60-1.20 [facility] Comment on above: Performed By: #### L [id number] ####[facility] ([facility])[address] [place] [address] GLOMERULAR FILTRATION RATE ML/MIN/1.73 SQ M.PREDICTED 91.4 mL/min/1.73m*2 Normal >60.0 [facility] Comment on above: Result Comment: [facility]???s estimated glomerular filtration rate (eGFR) will [...] of individuals. Performed By: #### L [id number] ####[facility] ([facility])[address] [place] [place] [address] Glucose [Mass/Vol] 133 mg/dL High 70-100 [facility] Comment on above: Performed By: #### L [id number] ####[facility] ([facility])[address] [place] [address] Potassium [Moles/Vol] 4.1 mmol/L Normal 3.5-5.1 [facility] Comment on above: Performed By: #### L [id number] ####[facility] ([facility])[address] [place], [place] [address] Sodium [Moles/Vol] 137 mmol/L Normal 136-145 [facility] Comment on above: Performed By: #### L [id number] ####[facility] ([facility])[address] [place] [address] Urea nitrogen [Mass/Vol] 15 mg/dL Normal 7-25 [facility] Comment on above: Performed By: #### L [id number] ####[facility] ([facility])[address] [place] [place] [address] UREA NITROGEN/CREATININE (MASS RATIO) IN SER/PLAS 20.3 Normal [facility] Comment on above: Performed By: #### L [id number] ####[facility] ([facility])[address] [place] [place] [address] CBCon 12-06-2023 Erythrocyte distribution width (RBC) [Ratio] 12.7 % Normal 11.5-15.0 [facility] Comment on above: Performed By: #### L [id number] ####[facility] ([facility])[address] [place] [address] ERYTHROCYTE MEAN CORPUSCULAR HEMOGLOBIN CONCENTRATION (G/DL) BY AUTOMATED 34.1 g/dL Normal 32.0-35.0 [facility] Comment on above: Performed By: #### L [id number] ####[facility] ([facility])[address] [place] [address] Hematocrit (Bld) [Volume fraction] 44.0 % Normal 36.0-48.0 [facility] Comment on above: Performed By: #### L [id number] ####[facility] ([facility])[address] [place] [address] Hemoglobin (Bld) [Mass/Vol] 15.0 g/dL Normal 12.0-15.0 [facility] Comment on above: Performed By: #### L [id number] ####[facility] ([facility])[address] [place] [address] MCH (RBC) [Entitic mass] 30.9 pg Normal 27.0-33.0 [facility] Comment on above: Performed By: #### L [id number] ####[facility] ([facility])[address] [place] [place], [place] [address] MCV (RBC) [Entitic vol] 90.7 fL Normal 82.0-98.0 [facility] Comment on above: Performed By: #### L [id number] ####[facility] ([facility])[address] [place] [address] PLATELETS (10*3/UL) IN BLOOD AUTOMATED COUNT 226 10*3/uL Normal 150-400 [facility] Comment on above: Performed By: #### L [id number] ####[facility] ([facility])[address] [place] [place] [address] RBC (Bld) [#/Vol] 4.85 10*6/uL Normal 3.80-5.00 [facility] Comment on above: Performed By: #### L [id number] ####[facility] ([facility])[address] [place] [address] WBC (Bld) [#/Vol] 6.22 10*3/uL Normal 4.00-10.60 [facility] Comment on above: Performed By: #### L [id number] ####[facility] ([facility])[address] [place] [address] CONSULTon 12-06-2023 CONSULT Normal [facility] CONSULT Normal [facility] CT ABDOMEN PELVIS W IV CONTR Marisabel 12-06-2023 CT ABDOMEN PELVIS W IV CONTRAST Normal [facility] CT CHEST W IV CONTRASTon CT CHEST W IV CONTRAST [facility] HEMOGLOBIN A1Con 12-06-2023 Glucose [Mass/Vol] 120 mg/dL [facility] on above: Performed By: #### L [id number] ####[facility] ([facility])[address] [place] [address] HbA1c (Bld) [Mass fraction] 5.8 % Normal 4.0-6.0 [facility] Comment on above: Performed By: #### L [id number] ####[facility] ([facility])[address] [place] [address] HPon 12-06-2023 HP Normal [facility] MRSA/MSSA DNA NASALon 2023 MRSA DNA Negative Normal Negative [facility] Comment on above: Order Comment: Testi [...] preclude nasal colonization. Performed By: #### L [id number] ####[facility] ([facility])[address] [place] [address] MSSA DNA Negative Normal Negative [facility] Comment on above: Order Comment: Testi [...] preclude nasal colonization. Performed By: #### L [id number] ####[facility] ([facility])[address] [place] [address] NURSNOTEon 12-06-2023 NURSNOTE Pt back from CT. Lab called and notified that pt is available for stat blood draws before heparin drip is set up. Normal [facility] PLATELET COUNTon 12-06-2023 PLATELETS (10*3/UL) IN BLOOD AUTOMATED COUNT 269 10*3/uL Normal 150-400 [facility] Comment on above: Performed By: #### L [id number] ####[facility] ([facility])[address] [place] [address] URINALYSISon 12-06-2023 BILIRUBIN, TOTAL PRESENCE IN URINE Negative Normal Negative [facility] Comment on above: Performed By: #### L [id number] ####[facility] ([facility])[address] [place] [address] Clarity (U) Clear Normal Clear [facility] Comment on above: Performed By: #### L [id number] ####[facility] ([facility])[address] [place] [address] Color (U) Yellow Normal Yellow [facility] Comment on above: Performed By: #### L [id number] ####[facility] ([facility])[address] [place] [address] Glucose (U) [Mass/Vol] Negative Normal Negative [facility] Comment on above: Performed By: #### L [id number] ####[facility] ([facility])[address] [place] [address] HEMOGLOBIN PRESENCE IN URINE Small Abnormal Negative [facility] Comment on above: Performed By: #### L [id number] ####[facility] ([facility])[address] [place] [address] Ketones Ql (U) Negative Normal Negative [facility] Comment on above: Performed By: #### L [id number] ####[facility] ([facility])[address] [place] [address] LEUKOCYTE ESTERASE PRESENCE IN URINE BY TEST STRIP Trace Abnormal Negative [facility] Comment on above: Performed By: #### L [id number] ####[facility] ([facility])[address] [place] [address] NITRITE PRESENCE IN URINE Negative Normal Negative [facility] Comment on above: Performed By: #### L [id number] ####[facility] ([facility])[address] [place] [address] pH (U) 7.0 [pH] Normal 5.0-8.0 [facility] Comment on above: Performed By: #### L [id number] ####[facility] ([facility])[address] [place] [address] Protein (U) [Mass/Vol] Negative Normal Negative [facility] Comment on above: Performed By: #### L [id number] ####[facility] ([facility])[address] [place] [address] Specific gravity (U) [Rel density] 1.031 High 1.015-1.020 [facility] Comment on above: Performed By: #### L [id number] ####[facility] ([facility])[address] [place] [address] URINALYSIS MICROSCOPICon CASTS IN URINE Normal [facility] Comment on above: Performed By: #### L [id number] ####[facility] ([facility])[address] [place] [address] CRYSTALS IN URINE Normal [facility] Comment on above: Performed By: #### L [id number] ####[facility] ([facility])[address] [place] [address] MUCUS (#/HPF) IN URINE SEDIMENT Few Normal None Seen, Occasional, Few [facility] Comment on above: Performed By: #### L [id number] ####[facility] ([facility])[address] [place] [address] RBC (#/HPF) IN URINE SEDIMENT 0-2 Abnormal None Seen [facility] Comment on above: Performed By: #### L [id number] ####[facility] ([facility] [place], [place] [address] SQUAMOUS EPITHELIAL CELLS (#/HPF) IN URINE SEDIMENT Moderate Abnormal None Seen, Occasional [facility] Comment on above: Performed By: #### L [id number] ####[facility] ([facility])[address] [place] [place] [address] WBC (LEUKOCYTE) (#/HPF) IN URINE SEDIMENT 0-2 Abnormal None Seen [facility] Comment on above: Performed By: #### L [id number] ####[facility] ([facility])[address] [place], [place] [address] 30on 12-05-2023 30 Normal [facility] ANESon 12-05-2023 ANES Normal [facility] B-TYPE NATRIURETIC PEPTIDEon 12-05-2023 Natriuretic peptide B (Bld) [Mass/Vol] 506 pg/mL High 0-100 [facility] Comment on above: Performed By: #### L [id number] ####[facility] ([facility])[address] [place], [place] [address] BASIC METABOLIC PANELon 11-22 Anion gap [Moles/Vol] 12 mmol/L Normal 7-20 [facility] Comment on above: Performed By: #### L [id number] ####[facility] ([facility])[address] [place] [address] Calcium [Mass/Vol] 9.1 mg/dL Normal 8.6-10.3 [facility] Comment on above: Performed By: #### L [id number] ####[facility] ([facility])[address] [place] [address] Chloride [Moles/Vol] 99 mmol/L Normal 98-107 [facility] Comment on above: Performed By: #### L [id number] ####[facility] ([facility])[address] [place] [address] CO2 [Moles/Vol] 27 mmol/L Normal 21-31 [facility] Comment on above: Performed By: #### L [id number] ####[facility] ([facility])[address] [place] [place] [address] Creatinine [Mass/Vol] 1.12 mg/dL Normal 0.60-1.20 [facility] Comment on above: Performed By: #### L [id number] ####[facility] ([facility])[address] [place] [place] [address] GLOMERULAR FILTRATION RATE ML/MIN/1.73 SQ M.PREDICTED 55.6 mL/min/1.73m*2 Low >60.0 [facility] Comment on above: Result Comment: [facility]???s estimated glomerular filtration rate (eGFR) will [...] of individuals. Performed By: #### L [id number] ####[facility] ([facility])[address] [place] [place] [address] Glucose [Mass/Vol] 111 mg/dL High 70-100 [facility] Comment on above: Performed By: #### L [id number] ####[facility] ([facility])[address] [place], [place] [address] Potassium [Moles/Vol] 4.2 mmol/L Normal 3.5-5.1 [facility] Comment on above: Performed By: #### L [id number] ####[facility] ([facility])[address] [place], [place] [address] Sodium [Moles/Vol] 134 mmol/L Low 136-145 [facility] Comment on above: Performed By: #### L [id number] ####[facility] ([facility])[address] [place] [address] Urea nitrogen [Mass/Vol] 18 mg/dL Normal 7-25 [facility] Comment on above: Performed By: #### L [id number] ####[facility] ([facility])[address] [place] [address] UREA NITROGEN/CREATININE (MASS RATIO) IN SER/PLAS 16.1 Normal [facility] Comment on above: Performed By: #### L [id number] ####[facility] ([facility])[address] [place] [address] CBCon 12-05-2023 Erythrocyte distribution width (RBC) [Ratio] 12.6 % Normal 11.5-15.0 [facility] Comment on above: Performed By: #### L [id number] ####[facility] ([facility])[address] [place] [address] ERYTHROCYTE MEAN CORPUSCULAR HEMOGLOBIN CONCENTRATION (G/DL) BY AUTOMATED 33.9 g/dL Normal 32.0-35.0 [facility] Comment on above: Performed By: #### L [id number] ####[facility] ([facility])[address] [place] [address] Hematocrit (Bld) [Volume fraction] 46.9 % Normal 36.0-48.0 [facility] Comment on above: Performed By: #### L [id number] ####[facility] ([facility])[address] [place] [address] Hemoglobin (Bld) [Mass/Vol] 15.9 g/dL High 12.0-15.0 [facility] Comment on above: Performed By: #### L [id number] ####[facility] ([facility])[address] [place] [address] MCH (RBC) [Entitic mass] 31.3 pg Normal 27.0-33.0 [facility] Comment on above: Performed By: #### L [id number] ####[facility] ([facility])[address] [place] [address] MCV (RBC) [Entitic vol] 92.3 fL Normal 82.0-98.0 [facility] Comment on above: Performed By: #### L [id number] ####[facility] ([facility])[address] [place] [place] [address] PLATELETS (10*3/UL) IN BLOOD AUTOMATED COUNT 273 10*3/uL Normal 150-400 [facility] Comment on above: Performed By: #### L [id number] ####[facility] ([facility])[address] [place] [address] RBC (Bld) [#/Vol] 5.08 10*6/uL High 3.80-5.00 [facility] Comment on above: Performed By: #### L [id number] ####[facility] ([facility])[address] [place] [address] WBC (Bld) [#/Vol] 6.71 10*3/uL Normal 4.00-10.60 [facility] Comment on above: Performed By: #### L [id number] ####[facility] ([facility])[address] [place] [place] [address] HPon 12-05-2023 HP Normal [facility] HP Normal [facility] LIPID PANELon 12-05-2023 CHOL/HDL 3.6 mg/dL Normal [facility] Comment on above: Performed By: #### L [id number] ####[facility] ([facility])[address] [place] [address] Cholesterol [Mass/Vol] 174 mg/dL Normal 120-200 [facility] Comment on above: Performed By: #### L [id number] ####[facility] ([facility])[address] [place] [address] Magnesium [Mass/Vol] 157 mg/dL High 40-149 [facility] Comment on above: Result Comment: TRIG LYCERIDE REFERENCE RANGE:20 YEARS AND OLDER CARDIOVASCULAR RISKLESS THAN 150 mg/dL LOW [id number] TO 199 mg/dL BORDERLINE [id number] mg/dL AND GREATER HIGH RISK Performed By: #### L [id number] ####[facility] ([facility])[address] [place] [address] Magnesium [Mass/Vol] 95 mg/dL Normal 0-160 [facility] Comment on above: Performed By: #### L [id number] ####[facility] ([facility])[address] [place] [address] Magnesium [Mass/Vol] 48 mg/dL Normal 23-92 [facility] Comment on above: Performed By: #### L [id number] ####[facility] ([facility])[address] [place] [address] NON HDL CHOL. (LDL+VLDL) 126 Normal [facility] Comment on above: Performed By: #### L [id number] ####[facility] ([facility])[address] [place] [address] TOTAL VLDL-C 31 mg/dL Normal 0-40 [facility] Comment on above: Performed By: #### L [id number] ####[facility] ([facility])[address] [place] [address] Labon 12-05-2023 Lab Normal [facility] MAGNESIUMon 12-05-2023 Magnesium [Mass/Vol] 2.0 mg/dL Normal 1.9-2.7 [facility] Comment on above: Performed By: #### L [id number] ####[facility] ([facility])[address] [place] [address] NURSNOTEon 12-05-2023 NURSNOTE Report called to Virginia martinez RN, she denies questions/concerns. Normal [facility] TROPONIN Ion 12-05-2023 Troponin I.cardiac [Mass/Vol] 0.06 ng/mL High 0.00-0.04 [facility] Comment on above: Performed By: #### L [id number] ####[facility] ([facility])[address] [place] [address] TSHon 12-05-2023 THYROTROPIN (MIU/L) IN SER/PLAS BY DETECTION LIMIT <= 0.05 MIU/L 3.41 mIU/L Normal 0.34-5.60 [facility] Comment on above: Performed By: #### L [id number] ####[facility] ([facility])[address] [place] [address] BNP ser/plasOrdered By: Maylin Alarcon on 12-04-2023 Natriuretic peptide B (Bld) [Mass/Vol] 648.0 pg/mL High 5-100 [facility] Comment on above: Result Comment: PERF ORMED BY: [place] [address] PATHOLOGIST FINANCIAL ECONOMIST HARVINDER GAGE M.D. Performed By: #### V ITD+D2+D3, THYROID PROF II #### [facility] , #### CMP, CBC #### [facility] [address] [place] [address] [place] Orders Onlyon 12-04-2023 Orders Only Normal [facility] Troponin I High Sensitivityo n 12-04-2023 Troponin I High Sensitivity 36.1 pg/mL High 0.0-15.0 [facility] Comment on above: Result Comment: PERF ORMED BY: [place] [address] PATHOLOGIST FINANCIAL ECONOMIST HARVINDER GAGE M.D. Performed By: #### V ITD+D2+D3, THYROID PROF II #### [facility] , #### CMP, CBC #### [facility] [address] [place] [address] Troponin I.cardiac [Mass/vol ume] in Serum or Plasma by Detection limit <= 0.01 ng/Ordered By: Gale Alarcon on 12-04-2023 Troponin I.cardiac DL <= 0.01 ng/mL [Mass/Vol] 36.1 pg/mL High 0.0-15.0 [facility] HPon 12-03-2023 HP Normal [facility] Alanine aminotransferase [En zymatic activity/volume] in Serum or PlasmaOrdered By: aBrby Chen on 12-02-2023 ALT [Catalytic activity/Vol] 15 U/L 7-52 [facility] Comment on above: Performed By: #### E SR, CBC, CMP #### [address] Albumin [Mass/volume] in Ser um or Plasma by Bromocresol green (BCG) dye binding methoOrdered By: Barby Chen on 12-02-2023 Albumin BCG dye [Mass/Vol] 4.3 g/dL 3.5-5.7 [facility] Alkaline phosphatase [Enzyma tic activity/volume] in Serum or PlasmaOrdered By: Barby Chen on 12-02-2023 ALP [Catalytic activity/Vol] 87 U/L 34-104 [facility] Comment on above: Result Comment: PERF ORMED BY: [place] [address] PATHOLOGIST FINANCIAL ECONOMIST HARVINDER GAGE M.D. Performed By: #### E SR, CBC, CMP #### [address] Aspartate aminotransferase [ Enzymatic activity/volume] in Serum or PlasmaOrdered By: Barby Chen on 12-02-2023 AST [Catalytic activity/Vol] 20 U/L 13-39 [facility] Comment on above: Performed By: #### E SR, CBC, CMP #### [address] Automated basophil %Ordered By: Barby hCen on 12-02-2023 Basophils/100 WBC (Bld) 0.9 % . [facility] Comment on above: Performed By: #### E SR, CBC, CMP #### [address] Automated basophil countOrde red By: Barby Chen on 12-02-2023 Basophils (Bld) [#/Vol] 0.1 10*3/uL 0.0-0.2 [facility] Comment on above: Performed By: #### E SR, CBC, CMP #### [address] [place] [address] [place] Automated blood monocyte cou ntOrdered By: Barby Chen on 12-02-2023 Monocytes (Bld) [#/Vol] 0.5 10*3/uL 0.0-0.8 [facility] Comment on above: Performed By: #### E SR, CBC, CMP #### [address] Automated eosinophil %Ordere d By: Barby Chen on 12-02-2023 Eosinophils/100 WBC (Bld) 0.1 % . [facility] Comment on above: Performed By: #### E SR, CBC, CMP #### [address] Automated eosinophil countOr dered By: Barby Chen on 12-02-2023 Eosinophils (Bld) [#/Vol] 0.0 10*3/uL 0.0-0.45 [facility] Comment on above: Performed By: #### E SR, CBC, CMP #### [address] Automated monocyte %Ordered By: Barby Chen on 12-02-2023 Monocytes/100 WBC (Bld) 6.3 % . [facility] Comment on above: Performed By: #### E SR, CBC, CMP #### [facility] [address] [place] [address] Automated neutrophil %Ordere d By: Barby Chen on 12-02-2023 Neutrophils/100 WBC (Bld) 77.8 % . [facility] Comment on above: Performed By: #### E SR, CBC, CMP #### [facility] [address] [place] [address] Bilirubin.total [Mass/volume ] in Serum or PlasmaOrdered By: Barby Chen on 12-02-2023 Bilirubin [Mass/Vol] 0.6 mg/dL 0.3-1.0 [facility] Comment on above: Performed By: #### E SR, CBC, CMP #### [address] [place] [address] [place] Calcium [Mass/volume] in Ser um or PlasmaOrdered By: Barby Chen on 12-02-2023 Calcium [Mass/Vol] 9.5 mg/dL 8.6-10.3 [facility] Comment on above: Performed By: #### E SR, CBC, CMP #### [facility] [address] Carbon dioxide, total [Moles /volume] in Serum or PlasmaOrdered By: Barby Chen on 12-02-2023 CO2 [Moles/Vol] 27.8 mmol/L 21.0-31.0 [facility] Comment on above: Performed By: #### E SR, CBC, CMP #### [address] Chloride [Moles/volume] in S davi or PlasmaOrdered By: Barby Chen on 12-02-2023 Chloride [Moles/Vol] 98 mmol/L 98-107 [facility] Comment on above: Performed By: #### E SR, CBC, CMP #### [address] Complete Blood Count Auto Di ffon 12-02-2023 Mean Corpuscular HGB Conc 34.7 g/dL Normal 32.0-35.0 [facility] Comment on above: Performed By: #### E SR, CBC, CMP #### [address] NRBC% 0.1 /100{WBC} Normal 0-0.5 [facility] Comment on above: Performed By: #### E SR, CBC, CMP #### [address] Comprehensive Metabolic Pane kirit 12-02-2023 Albumin [Mass/Vol] 4.3 g/dL Normal 3.5-5.7 [facility] Comment on above: Performed By: #### E SR, CBC, CMP #### [address] GFR/1.73 sq M.predicted MDRD (S/P/Bld) [Vol rate/Area] mL/min/{1.73_m2} Normal [facility] Comment on above: Performed By: #### E SR, CBC, CMP #### [address] Creatinine [Mass/volume] in Serum or PlasmaOrdered By: Barby Chen on 12-02-2023 Creatinine [Mass/Vol] 0.88 mg/dL 0.60-1.[address] [facility] Comment on above: Performed By: #### E SR, CBC, CMP #### [address] Erythrocyte Sedimentation Ra antonio 12-02-2023 ESR (Bld) [Velocity] 37 mm/h High 0-29 [facility] Comment on above: Result Comment: PERF ORMED BY: [place] [address] PATHOLOGIST FINANCIAL ECONOMIST HARVINDER GAGE M.D. Performed By: #### V ITD+D2+D3, THYROID PROF II #### [facility] , #### CMP, CBC #### [address] Erythrocyte distribution wid th [Ratio] by Automated countOrdered By: Barby Chen on 12-02-2023 Erythrocyte distribution width (RBC) [Ratio] 13.3 % 11.9-15.3 [facility] Comment on above: Performed By: #### E SR, CBC, CMP #### [address] Erythrocyte sedimentation ra te by Photometric methodOrdered By: Barby Chen on 12-02-2023 ESR Photometric method (Bld) [Velocity] 37 mm/hr High 0-29 [facility] Erythrocytes [#/volume] in B lood by Automated countOrdered By: Barby Chen on 12-02-2023 RBC (Bld) [#/Vol] 4.97 10*6/uL 3.60-5.00 [facility] Comment on above: Performed By: #### E SR, CBC, CMP #### [facility] [address] Glucose [Mass/volume] in Ser um or PlasmaOrdered By: Barby Chen on 12-02-2023 Glucose [Mass/Vol] 126 mg/dL High 70-100 [facility] Comment on above: ADA recommended refe rence rangeRandom Glucose Reference Range is dependent on time and content of last meal. Glucose of more than 200 mg/dL in a nonstressed, ambulatory subject supports the diagnosis of Diabetes Mellitus. Result Comment: [place] om Glucose Reference Range is dependent on time and content of last meal. Glucose of more than 200 mg/dL in a nonstressed, ambulatory subject supports the diagnosis of Diabetes Mellitus. ADA recommended reference range Performed By: #### E SR, CBC, CMP #### [facility] [address] Hematocrit [Volume Fraction] of Blood by Automated countOrdered By: Barby Chen on 12-02-2023 Hematocrit (Bld) [Volume fraction] 45.3 % 34.0-46.4 [facility] Comment on above: Performed By: #### E SR, CBC, CMP #### [facility] [address] Hemoglobin [Mass/volume] in BloodOrdered By: Barby Chen on 12-02-2023 Hemoglobin (Bld) [Mass/Vol] 15.7 g/dL High 11.8-15.4 [facility] Comment on above: Performed By: #### E SR, CBC, CMP #### [facility] [address] [place] [address] [place] Leukocytes [#/volume] correc chantelle for nucleated erythrocytes in Blood by Automated counOrdered By: Barby Chen on 12-02-2023 WBC corrected for nucl RBC Auto (Bld) [#/Vol] 7.9 10*3/uL 3.8-11.6 [facility] Leukocytes [#/volume] in Blo od by Automated countOrdered By: Barby Chen on 12-02-2023 WBC (Bld) [#/Vol] 7.9 10*3/uL 3.8-11.6 [facility] Comment on above: Performed By: #### E SR, CBC, CMP #### [facility] [address] Lymphocytes [#/volume] in Bl ood by Automated countOrdered By: Barby Chen on 12-02-2023 Lymphocytes (Bld) [#/Vol] 1.2 10*3/uL 1.00-4.8 [facility] Comment on above: Performed By: #### E SR, CBC, CMP #### [address] Lymphocytes/100 leukocytes i n Blood by Automated countOrdered By: Barby Chen on 12-02-2023 Lymphocytes/100 WBC (Bld) 14.9 % . [facility] Comment on above: Performed By: #### E SR, CBC, CMP #### [address] MCH [Entitic mass] by Automa chantelle countOrdered By: Barby Chen on 12-02-2023 MCH (RBC) [Entitic mass] 31.6 pg 24.7-34.3 [facility] Comment on above: Performed By: #### E SR, CBC, CMP #### [address] MCHC Auto (RBC) [Mass/Vol]Or dered By: Barby Chen on 12-02-2023 MCHC (RBC) [Mass/Vol] 34.7 g/dL 32.0-35.[address] [facility] MCV [Entitic volume] by Auto mated countOrdered By: Barby Chen on 12-02-2023 MCV (RBC) [Entitic vol] 91.1 fL 80-100 [facility] Comment on above: Performed By: #### E SR, CBC, CMP #### [place] [address] [place] Neutrophils [#/volume] in Bl ood by Automated countOrdered By: Barby Chen on 12-02-2023 Neutrophils (Bld) [#/Vol] 6.2 10*3/uL 1.8-7.7 [facility] Comment on above: Performed By: #### E SR, CBC, CMP #### [facility] [address] No Panel InformationOrdered By: Barby Chen on 12-02-2023 Estimated GFR (CKD-EPI) > 60.0 mL/Min [facility] Creatinine Clearance (Chem N/A [facility] Nucleated erythrocytes [Pres ence] in Blood by Automated countOrdered By: Barby Chen on 12-02-2023 Nucleated RBC Auto Ql (Bld) 0.1 /100{WBC} 0-0.5 [facility] Platelet mean volume [Entiti c volume] in Blood by Automated countOrdered By: Barby Chen on 12-02-2023 Platelet mean volume (Bld) [Entitic vol] 7.6 fL 6.3-10.7 [facility] Comment on above: Performed By: #### E SR, CBC, CMP #### [facility] [address] [place] [address] [place] Platelets [#/volume] in Bloo d by Automated countOrdered By: Barby Chen on 12-02-2023 Platelets (Bld) [#/Vol] 301 10*3/uL 150-450 [facility] Comment on above: Performed By: #### E SR, CBC, CMP #### [facility] [address] [place] [address] [place] Potassium [Moles/volume] in Serum or PlasmaOrdered By: Barby Chen on 12-02-2023 Potassium [Moles/Vol] 4.4 mmol/L 3.5-5.[address] [facility] Comment on above: Performed By: #### E SR, CBC, CMP #### [place] [address] [place] Protein [Mass/volume] in Ser um or PlasmaOrdered By: Barby Chen on 12-02-2023 Protein [Mass/Vol] 7.3 g/dL 6.4-8.9 [facility] Comment on above: Performed By: #### E SR, CBC, CMP #### [address] Serum globulin measurement b y calculation (mass/volume)Ordered By: Barby Chen on 12-02-2023 Globulin (S) [Mass/Vol] 3.0 g/dL [facility] Comment on above: Performed By: #### E SR, CBC, CMP #### [address] Serum or plasma albumin/glob ulin mass ratioOrdered By: Barby Chen on 12-02-2023 Albumin/Globulin [Mass ratio] 1.4 {ratio} [facility] Comment on above: Performed By: #### E SR, CBC, CMP #### [address] Serum or plasma anion gap de terminationOrdered By: Barby Chen on 12-02-2023 Anion gap [Moles/Vol] 9.6 mmol/L 6.0-15.[address] [facility] Comment on above: Performed By: #### E SR, CBC, CMP #### [address] Sodium [Moles/volume] in Ser um or PlasmaOrdered By: Barby Chen on 12-02-2023 Sodium [Moles/Vol] 131 mmol/L Low 136-145 [facility] Comment on above: Performed By: #### E SR, CBC, CMP #### [address] Urea nitrogen [Mass/volume] in Serum or PlasmaOrdered By: Barby Chen on 12-02-2023 Urea nitrogen [Mass/Vol] 9 mg/dL 7-25 [facility] Comment on above: Performed By: #### E SR, CBC, CMP #### [address] A1C with Estimated Average G yan 11-03-2023 Glucose [Mass/Vol] 123 mg/dL Normal [facility] Comment on above: Result Comment: PERF ORMED BY: [place] [address] PATHOLOGIST FINANCIAL ECONOMIST HARVINDER GAGE M.D. Performed By: #### V ITD+D2+D3, THYROID PROF II #### [facility] , #### CMP, CBC #### [facility] [address] [place] [address] [place] Alanine aminotransferase [En zymatic activity/volume] in Serum or PlasmaOrdered By: Anibal Chaudhary on 11-03-2023 ALT [Catalytic activity/Vol] 12 U/L 7-52 [facility] Comment on above: Performed By: #### V ITD+D2+D3, THYROID PROF II #### [facility] , #### CMP, CBC #### [facility] [address] [place] [address] [place] Albumin [Mass/volume] in Ser um or Plasma by Bromocresol green (BCG) dye binding methoOrdered By: Anibal Chaudhary on 11-03-2023 Albumin BCG dye [Mass/Vol] 4.2 g/dL 3.5-5.7 [facility] Alkaline phosphatase [Enzyma tic activity/volume] in Serum or PlasmaOrdered By: Anibal Chaudhary on 11-03-2023 ALP [Catalytic activity/Vol] 79 U/L 34-104 [facility] Comment on above: Performed By: #### V ITD+D2+D3, THYROID PROF II #### [facility] , #### CMP, CBC #### [facility] [address] [place] [address] [place] Aspartate aminotransferase [ Enzymatic activity/volume] in Serum or PlasmaOrdered By: Anibal Chaudhary on 11-03-2023 AST [Catalytic activity/Vol] 16 U/L 13-39 [facility] Comment on above: Performed By: #### V ITD+D2+D3, THYROID PROF II #### [facility] , #### CMP, CBC #### [facility] [address] [place] [address] Bilirubin.total [Mass/volume ] in Serum or PlasmaOrdered By: Anibal Chaudhary on 11-03-2023 Bilirubin [Mass/Vol] 0.5 mg/dL 0.3-1.0 [facility] Comment on above: Performed By: #### V ITD+D2+D3, THYROID PROF II #### [facility] , #### CMP, CBC #### [facility] [address] [place] [address] Calcium [Mass/volume] in Ser um or PlasmaOrdered By: Anibal Chaudhary on 11-03-2023 Calcium [Mass/Vol] 9.1 mg/dL 8.6-10.3 [facility] Comment on above: Performed By: #### V ITD+D2+D3, THYROID PROF II #### [facility] , #### CMP, CBC #### [address] Carbon dioxide, total [Moles /volume] in Serum or PlasmaOrdered By: Anibal Chaudhary on 11-03-2023 CO2 [Moles/Vol] 26.2 mmol/L 21.0-31.0 [facility] Comment on above: Performed By: #### V ITD+D2+D3, THYROID PROF II #### [facility] , #### CMP, CBC #### [facility] [address] [place] [address] [place] Chloride [Moles/volume] in S davi or PlasmaOrdered By: Anibal Chaudhary on 11-03-2023 Chloride [Moles/Vol] 101 mmol/L 98-107 [facility] Comment on above: Performed By: #### V ITD+D2+D3, THYROID PROF II #### [facility] , #### CMP, CBC #### [facility] [address] [place] [address] Cholesterol [Mass/volume] in Serum or PlasmaOrdered By: Anibal Chaudhary on 11-03-2023 Cholesterol [Mass/Vol] 162 mg/dL 140-200 [facility] Comment on above: Chol less than 200 m g/dl low riskChol 201-239 mg/dl borderline riskChol 240 mg/dl and greater high risk Result Comment: Chol less than 200 mg/dl low risk Chol 201-239 mg/dl borderline risk Chol 240 mg/dl and greater high risk Performed By: #### V ITD+D2+D3, THYROID PROF II #### [facility] , #### CMP, CBC #### [facility] [address] [place] [address] [place] Cholesterol in LDL Calc [Mas s/Vol]Ordered By: Anibal Chaudhary on 11-03-2023 Cholesterol in LDL [Mass/Vol] 86 mg/dL 0-100 [facility] Comment on above: LDL ATP III CLASSIFI CATIONLDL less than 100 mg/dL OptimalLDL 100-129 mg/dL Near or above optimalLDL 130-159 mg/dL Borderline highLDL 160-189 mg/dL HighLDL greater than 189 mg/dL Very high Cholesterol in VLDL Calc [Ma ss/Vol]Ordered By: Anibal Chaudhary on 11-03-2023 Cholesterol in VLDL [Mass/Vol] 20 mg/dL [facility] Comprehensive Metabolic Pane kirit 11-03-2023 Albumin [Mass/Vol] 4.2 g/dL Normal 3.5-5.7 [facility] Comment on above: Performed By: #### V ITD+D2+D3, THYROID PROF II #### [facility] , #### CMP, CBC #### [facility] [address] [place] [address] [place] GFR/1.73 sq M.predicted MDRD (S/P/Bld) [Vol rate/Area] mL/min/{1.73_m2} Normal [facility] Comment on above: Performed By: #### V ITD+D2+D3, THYROID PROF II #### [facility] , #### CMP, CBC #### [facility] [address] [place] [id number] [place] Creatinine [Mass/volume] in Serum or PlasmaOrdered By: Anibal Chaudhary on 11-03-2023 Creatinine [Mass/Vol] 0.94 mg/dL 0.60-1.[address] [facility] Comment on above: Performed By: #### V ITD+D2+D3, THYROID PROF II #### [facility] , #### CMP, CBC #### [facility] [address] [place] [address] [place] Glucose [Mass/volume] in Ser um or PlasmaOrdered By: Anibal Chaudhary on 11-03-2023 Glucose [Mass/Vol] 130 mg/dL High 70-100 [facility] Comment on above: ADA recommended refe rence rangeRandom Glucose Reference Range is dependent on time and content of last meal. Glucose of more than 200 mg/dL in a nonstressed, ambulatory subject supports the diagnosis of Diabetes Mellitus. Result Comment: [place] Glucose Reference Range is dependent on time and content of last meal. Glucose of more than 200 mg/dL in a nonstressed, ambulatory subject supports the diagnosis of Diabetes Mellitus. ADA recommended reference range Performed By: #### V ITD+D2+D3, THYROID PROF II #### [facility] , #### CMP, CBC #### [facility] [address] [place] [address] [place] Glucose mean value [Mass/vol ume] in Blood Estimated from glycated hemoglobinOrdered By: Anibal Chaudhary on 11-03-2023 Average glucose Estimated from glycated hemoglobin (Bld) [Mass/Vol] 123 mg/dL [facility] Hemoglobin A1c percentageOrd ered By: Anibal Chaudhary on 11-03-2023 HbA1c (Bld) [Mass fraction] 5.9 % High 4.3-5.6 [facility] Comment on above: Increased risk for d iabetes: 5.7 - 6.4diabetes: >6.4glycemic control for adults with diabetes: <7.0 Result Comment: Incr eased risk for diabetes: 5.7 - 6.4 diabetes: >6.4 glycemic control for adults with diabetes: <7.0 Performed By: #### V ITD+D2+D3, THYROID PROF II #### [facility] , #### CMP, CBC #### [address] Lipid Panelon 11-03-2023 LDL Cholesterol,Calculated 86 mg/dL Normal 0-100 [facility] Comment on above: Result Comment: LDL ATP III CLASSIFICATION LDL less than 100 mg/dL Optimal LDL 100-129 mg/dL Near or above optimal LDL 130-159 mg/dL Borderline high LDL 160-189 mg/dL High LDL greater than 189 mg/dL Very high Performed By: #### V ITD+D2+D3, THYROID PROF II #### [facility] , #### CMP, CBC #### [address] Triglyceride w/Reflex 101 mg/dL Normal 0-149 [facility] Comment on above: Result Comment: TRIG ATP III CLASSIFICATION TRIG less than 150 mg/dL Normal TRIG 150-199 mg/dL Borderline high TRIG 200-500 mg/dL High TRIG greater than 500 mg/dL Very high Standard traceable to the Center for Disease Conrtrol and Prevention (CDC) test method. Performed By: #### V ITD+D2+D3, THYROID PROF II #### [facility] , #### CMP, CBC #### [address] VLDL CHOLESTEROL 20 mg/dL Normal [facility] Comment on above: Performed By: #### V ITD+D2+D3, THYROID PROF II #### [facility] , #### CMP, CBC #### [address] No Panel InformationOrdered By: Anibal Chaudhary on 11-03-2023 Estimated GFR (CKD-EPI) > 60.0 mL/Min [facility] Creatinine Clearance (Chem N/A [facility] Potassium [Moles/volume] in Serum or PlasmaOrdered By: Anibal Chaudhary on 11-03-2023 Potassium [Moles/Vol] 4.5 mmol/L 3.5-5.[address] [facility] Comment on above: Performed By: #### V ITD+D2+D3, THYROID PROF II #### [facility] , #### CMP, CBC #### [facility] [address] [place] [address] Protein [Mass/volume] in Ser um or PlasmaOrdered By: Anibal Chaudhary on 11-03-2023 Protein [Mass/Vol] 6.8 g/dL 6.4-8.9 [facility] Comment on above: Performed By: #### V ITD+D2+D3, THYROID PROF II #### [facility] , #### CMP, CBC #### [address] Serum globulin measurement b y calculation (mass/volume)Ordered By: Anibal Chaudhary on 11-03-2023 Globulin (S) [Mass/Vol] 2.6 g/dL [facility] Comment on above: Performed By: #### V ITD+D2+D3, THYROID PROF II #### [facility] , #### CMP, CBC #### [address] Serum or plasma albumin/glob ulin mass ratioOrdered By: Anibal Chaudhary on 11-03-2023 Albumin/Globulin [Mass ratio] 1.6 {ratio} [facility] Comment on above: Performed By: #### V ITD+D2+D3, THYROID PROF II #### [facility] , #### CMP, CBC #### [address] Serum or plasma anion gap de terminationOrdered By: Anibal Chaudhary on 11-03-2023 Anion gap [Moles/Vol] 10.3 mmol/L 6.0-15.0 [facility] Comment on above: Performed By: #### V ITD+D2+D3, THYROID PROF II #### [facility] , #### CMP, CBC #### [facility] [address] [place] [address] Serum or plasma high density lipoprotein (HDL) cholesterol measurementOrdered By: Anibal Chaudhary on 11-03-2023 Cholesterol in HDL [Mass/Vol] 56 mg/dL 23- [facility] Comment on above: HDL CHOL ATP-III CLA SSIFICATION Cardiovascular RiskHDL > or equal to 60 mg/dL LOWHDL < 40 mg/dL HIGH Result Comment: HDL CHOL ATP-III CLASSIFICATION Cardiovascular Risk HDL > or equal to 60 mg/dL LOW HDL < 40 mg/dL HIGH Performed By: #### V ITD+D2+D3, THYROID PROF II #### [facility] , #### CMP, CBC #### [facility] [address] Serum or plasma total choles terol/high density lipoprotein (HDL) cholesterol mass ratOrdered By: Anibal Chaudhary on 11-03-2023 Cholesterol.total/Chol esterol in HDL [Mass ratio] 2.9 {ratio} <5.0 [facility] Comment on above: Performed By: #### V ITD+D2+D3, THYROID PROF II #### [facility] , #### CMP, CBC #### [facility] [address] [place] [address] [place] Sodium [Moles/volume] in Ser um or PlasmaOrdered By: Anibal Chaudhary on 11-03-2023 Sodium [Moles/Vol] 133 mmol/L Low 136-145 [facility] Comment on above: Performed By: #### V ITD+D2+D3, THYROID PROF II #### [facility] , #### CMP, CBC #### [facility] [address] Thyroid Stim Hormone w/Rflxo n 11-03-2023 Thyroid Stim Hormone w/Rflx 1.79 u[iU]/mL Normal 0.45-5.33 [facility] Comment on above: Result Comment: PERF ORMED BY: [place] [address] PATHOLOGIST FINANCIAL ECONOMIST HARVINDER GAGE M.D. Performed By: #### V ITD+D2+D3, THYROID PROF II #### [facility] , #### CMP, CBC #### [facility] [address] Thyrotropin [Units/volume] i n Serum or PlasmaOrdered By: Anibal Chaudhary on 11-03-2023 TSH Qn 1.79 m[IU]/L 0.45-5.33 [facility] Thyroxine (T4) free [Mass/vo lume] in Serum or PlasmaOrdered By: Anibal Chaudhary on 11-03-2023 Free T4 [Mass/Vol] 0.92 ng/dL 0.61-1.12 [facility] Comment on above: Performed By: #### V ITD+D2+D3, THYROID PROF II #### [facility] , #### CMP, CBC #### [address] Triglyceride [Mass/volume] i n Serum or PlasmaOrdered By: Anibal Chaudhary on 11-03-2023 Triglyceride [Mass/Vol] 101 mg/dL 0-149 [facility] Comment on above: TRIG ATP III CLASSIF ICATIONTRIG less than 150 mg/dL NormalTRIG 150-199 mg/dL Borderline highTRIG 200-500 mg/dL High TRIG greater than 500 mg/dL Very highStandard traceable to the Center for Disease Conrtrol and Prevention (CDC) test method. Urea nitrogen [Mass/volume] in Serum or PlasmaOrdered By: Anibal Chaudhary on 11-03-2023 Urea nitrogen [Mass/Vol] 20 mg/dL 7-25 [facility] Comment on above: Performed By: #### V ITD+D2+D3, THYROID PROF II #### [facility] , #### CMP, CBC #### [facility] [address] [place] [address] [place] Basophils Auto (Bld) [#/Vol] on 09-07-2023 Basophils (Bld) [#/Vol] 0.1 10 3/uL 0.0-0.1 [facility] Basophils/100 WBC Auto (Bld) on 09-07-2023 Basophils/100 WBC (Bld) 1.0 % 0.2-2.0 [facility] Eosinophils/100 WBC Auto (Bl d)on 09-07-2023 Eosinophils/100 WBC (Bld) 0.0 % Low 0.9-7.0 [facility] Erythrocyte distribution wid th Auto (RBC) [Ratio]on 09-07-2023 Erythrocyte distribution width (RBC) [Ratio] 12.2 % 11.0-15.0 [facility] Estimated glomerular filtrat ion rate (GFR) non- Americanon 09-07-2023 GFR/1.73 sq M.predicted among non-blacks MDRD (S/P/Bld) [Vol rate/Area] mL/min/{1.73_m2} >=60 [facility] Globulin Calc (S) [Mass/Vol] on 09-07-2023 Globulin (S) [Mass/Vol] 3.6 g/dL [facility] Hematocrit Auto (Bld) [Volum e fraction]on 09-07-2023 Hematocrit (Bld) [Volume fraction] 38.5 % 36.0-48.0 [facility] Hemoglobin [Mass/volume] in Bloodon 09-07-2023 Hemoglobin (Bld) [Mass/Vol] 13.3 g/dL 12.0-16.0 [facility] Laboratory - Chemistry and C hemistry - challengeon 09-07-2023 Albumin [Mass/Vol] 3.6 g/dL 3.4-5.0 [facility] ALP [Catalytic activity/Vol] 84 U/L 46-116 [facility] ALT [Catalytic activity/Vol] 19 U/L 14-59 [facility] AST [Catalytic activity/Vol] 16 U/L 15-37 [facility] Bilirubin [Mass/Vol] 0.4 mg/dL 0.2-1.0 [facility] Calcium [Mass/Vol] 8.9 mg/dL 8.5-10.1 [facility] Chloride [Moles/Vol] 96 mmol/L Low 98-107 [facility] CO2 [Moles/Vol] 31.7 mmol/L 21.0-32.0 [facility] Creatinine [Mass/Vol] 0.91 mg/dL 0.55-1.[address] [facility] GFR/1.73 sq M.predicted MDRD (S/P/Bld) [Vol rate/Area] mL/min/{1.73_m2} >=60 [facility] Glucose [Mass/Vol] 108 mg/dL High 74-106 [facility] Potassium [Moles/Vol] 4.2 mmol/L 3.5-5.[address] [facility] Protein [Mass/Vol] 7.2 g/dL 6.4-8.2 [facility] Sodium [Moles/Vol] 130 mmol/L Low 136-145 [facility] Urea nitrogen [Mass/Vol] 15.0 mg/dL 7.0-18.0 [facility] Urea nitrogen/Creatinine [Mass ratio] 16.5 mg/mg [facility] Laboratory - Hematology and Cell countson 09-07-2023 Immature granulocytes/100 WBC (Bld) 0.3 % 0.0-0.5 [facility] Leukocytes [#/volume] correc chantelle for nucleated erythrocytes in Blood by Automated counon 09-07-2023 WBC corrected for nucl RBC Auto (Bld) [#/Vol] 6.3 10 3/uL 4.0-11.0 [facility] Lymphocytes Auto (Bld) [#/Vo l]on 09-07-2023 Lymphocytes (Bld) [#/Vol] 1.4 10 3/uL 1.2-3.8 [facility] Lymphocytes/100 WBC Auto (Bl d)on 09-07-2023 Lymphocytes/100 WBC (Bld) 22.4 % 20.5-60.0 [facility] MCH Auto (RBC) [Entitic mass ]on 09-07-2023 MCH (RBC) [Entitic mass] 30.9 pg 26.7-34.0 [facility] MCHC Auto (RBC) [Mass/Vol]on 09-07-2023 MCHC (RBC) [Mass/Vol] 34.5 g/dL 29.9-35.[address] [facility] MCV Auto (RBC) [Entitic vol] on 09-07-2023 MCV (RBC) [Entitic vol] 89.5 fL 81.0-99.0 [facility] Monocytes Auto (Bld) [#/Vol] on 09-07-2023 Monocytes (Bld) [#/Vol] 0.4 10 3/uL 0.3-0.8 [facility] Monocytes/100 WBC Auto (Bld) on 09-07-2023 Monocytes/100 WBC (Bld) 6.6 % 1.7-12.0 [facility] Neutrophils Auto (Bld) [#/Vo l]on 09-07-2023 Neutrophils (Bld) [#/Vol] 4.4 10 3/uL 1.4-6.5 [facility] Neutrophils/100 WBC Auto (Bl d)on 09-07-2023 Neutrophils/100 WBC (Bld) 69.7 % 43.0-75.0 [facility] No Panel Informationon 09-06 Eosinophils # (Auto) 0.0 10 3/uL 0.0-0.[address] [facility] Immature Granulocyte # (Auto) 0.02 10 3/uL 0.00-0.03 [facility] Platelet mean volume Auto (B ld) [Entitic vol]on 09-07-2023 Platelet mean volume (Bld) [Entitic vol] 8.6 fL Low 9.5-13.5 [facility] Platelets Auto (Bld) [#/Vol] on 09-07-2023 Platelets (Bld) [#/Vol] 233 10 3/uL 150-450 [facility] RBC Auto (Bld) [#/Vol]on RBC (Bld) [#/Vol] 4.30 10 6/uL 4.20-5.40 [facility] Serum or plasma albumin/glob ulin mass ratioon 09-07-2023 Albumin/Globulin [Mass ratio] 1.0 {ratio} [facility] Serum or plasma anion gap de terminationon 09-07-2023 Anion gap [Moles/Vol] 6.5 mmol/L [facility] Basophils Auto (Bld) [#/Vol] on 08-19-2023 Basophils (Bld) [#/Vol] 0.1 10 3/uL 0.0-0.1 [facility] Basophils/100 WBC Auto (Bld) on 08-19-2023 Basophils/100 WBC (Bld) 1.3 % 0.2-2.0 [facility] Eosinophils/100 WBC Auto (Bl d)on 08-19-2023 Eosinophils/100 WBC (Bld) 0.0 % Low 0.9-7.0 [facility] Erythrocyte distribution wid th Auto (RBC) [Ratio]on 08-19-2023 Erythrocyte distribution width (RBC) [Ratio] 12.1 % 11.0-15.0 [facility] Estimated glomerular filtrat ion rate (GFR) non- Americanon 08-19-2023 GFR/1.73 sq M.predicted among non-blacks MDRD (S/P/Bld) [Vol rate/Area] mL/min/{1.73_m2} >=60 [facility] Hematocrit Auto (Bld) [Volum e fraction]on 08-19-2023 Hematocrit (Bld) [Volume fraction] 40.6 % 36.0-48.0 [facility] Hemoglobin [Mass/volume] in Bloodon 08-19-2023 Hemoglobin (Bld) [Mass/Vol] 13.8 g/dL 12.0-16.0 [facility] - Chemistry and C hemistry - challengeon 08-19-2023 Calcium [Mass/Vol] 8.8 mg/dL 8.5-10.1 [facility] Chloride [Moles/Vol] 96 mmol/L Low 98-107 [facility] CO2 [Moles/Vol] 30.6 mmol/L 21.0-32.0 [facility] Creatinine [Mass/Vol] 0.89 mg/dL 0.55-1.[address] [facility] Free T4 [Mass/Vol] 0.87 ng/dL 0.76-1.46 [facility] GFR/1.73 sq M.predicted MDRD (S/P/Bld) [Vol rate/Area] mL/min/{1.73_m2} >=60 [facility] Glucose [Mass/Vol] 116 mg/dL High 74-106 [facility] Natriuretic peptide B (Bld) [Mass/Vol] 490.0 pg/mL <=900.0 [facility] Potassium [Moles/Vol] 4.4 mmol/L 3.5-5.[address] [facility] Sodium [Moles/Vol] 133 mmol/L Low 136-145 [facility] TSH Qn 4.910 m[IU]/L High 0.358-3.740 [facility] Urea nitrogen [Mass/Vol] 20.0 mg/dL High 7.0-18.0 [facility] Urea nitrogen/Creatinine [Mass ratio] 22.5 mg/mg [facility] Bilirubin Ql (U) Negative NEGATIVE [facility] Glucose (U) [Mass/Vol] Negative NEGATIVE [facility] Ketones Ql (U) Negative NEGATIVE [facility] pH (U) 7.0 [pH] 5.0-9.0 [facility] Specific gravity (U) [Rel density] 1.010 1.005-1.025 [facility] Urobilinogen Qn (U) 0.2 {Lenny'U}/dL 0.2-1.0 [facility] - Hematology and Cell countson 08-19-2023 Immature granulocytes/100 WBC (Bld) 0.5 % 0.0-0.5 [facility] - Specimen inform ationon 08-19-2023 Appearance (U) CLEAR CLEAR [facility] Color (U) LT. YELLOW YELLOW [facility] - Urinalysison Leukocyte esterase Test strip Ql (U) Negative NEGATIVE [facility] Nitrite Ql (U) Negative NEGATIVE [facility] Protein Ql (U) Negative NEG/TRACE [facility] Leukocytes [#/volume] correc chantelle for nucleated erythrocytes in Blood by Automated counon 08-19-2023 WBC corrected for nucl RBC Auto (Bld) [#/Vol] 7.5 10 3/uL 4.0-11.0 [facility] Lymphocytes Auto (Bld) [#/Vo l]on 08-19-2023 Lymphocytes (Bld) [#/Vol] 1.6 10 3/uL 1.2-3.8 [facility] Lymphocytes/100 WBC Auto (Bl d)on 08-19-2023 Lymphocytes/100 WBC (Bld) 21.2 % 20.5-60.0 [facility] MCH Auto (RBC) [Entitic mass ]on 08-19-2023 MCH (RBC) [Entitic mass] 31.0 pg 26.7-34.0 [facility] MCHC Auto (RBC) [Mass/Vol]on 08-19-2023 MCHC (RBC) [Mass/Vol] 34.0 g/dL 29.9-35.[address] [facility] MCV Auto (RBC) [Entitic vol] on 08-19-2023 MCV (RBC) [Entitic vol] 91.2 fL 81.0-99.0 [facility] Monocytes Auto (Bld) [#/Vol] on 08-19-2023 Monocytes (Bld) [#/Vol] 0.5 10 3/uL 0.3-0.8 [facility] Monocytes/100 WBC Auto (Bld) on 08-19-2023 Monocytes/100 WBC (Bld) 6.4 % 1.7-12.0 [facility] Neutrophils Auto (Bld) [#/Vo l]on 08-19-2023 Neutrophils (Bld) [#/Vol] 5.3 10 3/uL 1.4-6.5 [facility] Neutrophils/100 WBC Auto (Bl d)on 08-19-2023 Neutrophils/100 WBC (Bld) 70.6 % 43.0-75.0 [facility] No Panel Informationon 08-18 Eosinophils # (Auto) 0.0 10 3/uL 0.0-0.[address] [facility] Immature Granulocyte # (Auto) 0.04 10 3/uL High 0.00-0.03 [facility] Urine Occult Blood TRACE-L NEGATIVE [facility] Platelet mean volume Auto (B ld) [Entitic vol]on 08-19-2023 Platelet mean volume (Bld) [Entitic vol] 9.0 fL Low 9.5-13.5 [facility] Platelets Auto (Bld) [#/Vol] on 08-19-2023 Platelets (Bld) [#/Vol] 259 10 3/uL 150-450 [facility] RBC Auto (Bld) [#/Vol]on RBC (Bld) [#/Vol] 4.45 10 6/uL 4.20-5.40 [facility] Serum or plasma anion gap de terminationon 08-19-2023 Anion gap [Moles/Vol] 10.8 mmol/L [facility] Alanine aminotransferase [En zymatic activity/volume] in Serum or PlasmaOrdered By: Pam Wagoner on 07-08-2023 ALT [Catalytic activity/Vol] 13 U/L Normal 7-52 [facility] Comment on above: Performed By: #### V ITD+D2+D3, THYROID PROF II #### [facility] , #### CMP, CBC #### [facility] [address] [place] [address] [place] Albumin [Mass/volume] in Ser um or Plasma by Bromocresol green (BCG) dye binding methoOrdered By: Pam Wagoner on 07-08-2023 Albumin BCG dye [Mass/Vol] 4.7 g/dL 3.5-5.7 [facility] Alkaline phosphatase [Enzyma tic activity/volume] in Serum or PlasmaOrdered By: Pam Wagoner on 07-08-2023 ALP [Catalytic activity/Vol] 72 U/L Normal 34-104 [facility] Comment on above: Result Comment: PERF ORMED BY: [place] [address] PATHOLOGIST FINANCIAL ECONOMIST HARVINDER GAGE M.D. Performed By: #### V ITD+D2+D3, THYROID PROF II #### [facility] , #### CMP, CBC #### [facility] [address] [place] [address] [place] Aspartate aminotransferase [ Enzymatic activity/volume] in Serum or PlasmaOrdered By: Pam Wagoner on 07-08-2023 AST [Catalytic activity/Vol] 18 U/L Normal 13-39 [facility] Comment on above: Performed By: #### V ITD+D2+D3, THYROID PROF II #### [facility] , #### CMP, CBC #### [address] Automated basophil %Ordered By: Pam Wagoner on 07-08-2023 Basophils/100 WBC (Bld) 1.2 % Normal . [facility] Comment on above: Performed By: #### V ITD+D2+D3, THYROID PROF II #### [facility] , #### CMP, CBC #### [address] Automated basophil countOrde red By: Pam Wagoner on 07-08-2023 Basophils (Bld) [#/Vol] 0.1 10*3/uL Normal 0.0-0.2 [facility] Comment on above: Result Comment: PERF ORMED BY: [place] [address] PATHOLOGIST FINANCIAL ECONOMIST HARVINDER GAGE M.D. Performed By: #### V ITD+D2+D3, THYROID PROF II #### [facility] , #### CMP, CBC #### [address] Automated blood monocyte cou ntOrdered By: Pam Wagoner on 07-08-2023 Monocytes (Bld) [#/Vol] 0.5 10*3/uL Normal 0.0-0.8 [facility] Comment on above: Performed By: #### V ITD+D2+D3, THYROID PROF II #### [facility] , #### CMP, CBC #### [address] Automated eosinophil %Ordere d By: Pam Wagoner on 07-08-2023 Eosinophils/100 WBC (Bld) 0.0 % Normal . [facility] Comment on above: Performed By: #### V ITD+D2+D3, THYROID PROF II #### [facility] , #### CMP, CBC #### [address] Automated eosinophil countOr dered By: Pam Wagoner on 07-08-2023 Eosinophils (Bld) [#/Vol] 0.0 10*3/uL Normal 0.0-0.45 [facility] Comment on above: Performed By: #### V ITD+D2+D3, THYROID PROF II #### [facility] , #### CMP, CBC #### [facility] [address] [place] [address] Automated monocyte %Ordered By: Pam Wagoner on 07-08-2023 Monocytes/100 WBC (Bld) 7.8 % Normal . [facility] Comment on above: Performed By: #### V ITD+D2+D3, THYROID PROF II #### [facility] , #### CMP, CBC #### [address] Automated neutrophil %Ordere d By: Pam Wagoner on 07-08-2023 Neutrophils/100 WBC (Bld) 65.2 % Normal . [facility] Comment on above: Performed By: #### V ITD+D2+D3, THYROID PROF II #### [facility] , #### CMP, CBC #### [facility] [address] [place] [address] Bilirubin.total [Mass/volume ] in Serum or PlasmaOrdered By: Pam Wagoner on 07-08-2023 Bilirubin [Mass/Vol] 0.3 mg/dL Normal 0.3-1.0 [facility] Comment on above: Performed By: #### V ITD+D2+D3, THYROID PROF II #### [facility] , #### CMP, CBC #### [facility] [address] [place] [address] Calcium [Mass/volume] in Ser um or PlasmaOrdered By: Pam Wagoner on 07-08-2023 Calcium [Mass/Vol] 9.9 mg/dL Normal 8.6-10.3 [facility] Comment on above: Performed By: #### V ITD+D2+D3, THYROID PROF II #### [facility] , #### CMP, CBC #### [address] Carbon dioxide, total [Moles /volume] in Serum or PlasmaOrdered By: Pam Wagoner on 07-08-2023 CO2 [Moles/Vol] 31.5 mmol/L High 21.0-31.0 [facility] Comment on above: Performed By: #### V ITD+D2+D3, THYROID PROF II #### [facility] , #### CMP, CBC #### [address] Chloride [Moles/volume] in S davi or PlasmaOrdered By: Pam Wagoner on 07-08-2023 Chloride [Moles/Vol] 100 mmol/L Normal 98-107 [facility] Comment on above: Performed By: #### V ITD+D2+D3, THYROID PROF II #### [facility] , #### CMP, CBC #### [address] Complete Blood Count Auto Di ffon 07-08-2023 Mean Corpuscular HGB Conc 34.0 g/dL Normal 32.0-35.0 [facility] Comment on above: Performed By: #### V ITD+D2+D3, THYROID PROF II #### [facility] , #### CMP, CBC #### [facility] [address] [place] [address] NRBC% 0.1 /100{WBC} Normal 0-0.5 [facility] Comment on above: Performed By: #### V ITD+D2+D3, THYROID PROF II #### [facility] , #### CMP, CBC #### [facility] [address] [place] [address] Comprehensive Metabolic Pane kirit 07-08-2023 Albumin [Mass/Vol] 4.7 g/dL Normal 3.5-5.7 [facility] Comment on above: Performed By: #### V ITD+D2+D3, THYROID PROF II #### [facility] , #### CMP, CBC #### [facility] [address] [place] [address] GFR/1.73 sq M.predicted MDRD (S/P/Bld) [Vol rate/Area] mL/min/{1.73_m2} Normal [facility] Comment on above: Performed By: #### V ITD+D2+D3, THYROID PROF II #### [facility] , #### CMP, CBC #### [address] Creatinine [Mass/volume] in Serum or PlasmaOrdered By: Pam Wagoner on 07-08-2023 Creatinine [Mass/Vol] 0.96 mg/dL Normal 0.60-1.[address] [facility] Comment on above: Performed By: #### V ITD+D2+D3, THYROID PROF II #### [facility] , #### CMP, CBC #### [address] Erythrocyte distribution wid th [Ratio] by Automated countOrdered By: Pam Wagoner on 07-08-2023 Erythrocyte distribution width (RBC) [Ratio] 12.9 % Normal 11.9-15.3 [facility] Comment on above: Performed By: #### V ITD+D2+D3, THYROID PROF II #### [facility] , #### CMP, CBC #### [address] Erythrocytes [#/volume] in B lood by Automated countOrdered By: Pam Wagoner on 07-08-2023 RBC (Bld) [#/Vol] 4.72 10*6/uL Normal 3.60-5.00 [facility] Comment on above: Performed By: #### V ITD+D2+D3, THYROID PROF II #### [facility] , #### CMP, CBC #### [address] Free thyroxine indexOrdered By: Pam Wagoner on 07-08-2023 Free T4 index Calc [Mass/Vol] 1.8 1.2-4.9 [facility] Glucose [Mass/volume] in Ser um or PlasmaOrdered By: Pam Wagoner on 07-08-2023 Glucose [Mass/Vol] 109 mg/dL High 70-100 [facility] Comment on above: ADA recommended refe rence rangeRandom Glucose Reference Range is dependent on time and content of last meal. Glucose of more than 200 mg/dL in a nonstressed, ambulatory subject supports the diagnosis of Diabetes Mellitus. Result Comment: [place] Glucose Reference Range is dependent on time and content of last meal. Glucose of more than 200 mg/dL in a nonstressed, ambulatory subject supports the diagnosis of Diabetes Mellitus. ADA recommended reference range Performed By: #### V ITD+D2+D3, THYROID PROF II #### [facility] , #### CMP, CBC #### [facility] [address] [place] [address] Hematocrit [Volume Fraction] of Blood by Automated countOrdered By: Pam Wagoner on 07-08-2023 Hematocrit (Bld) [Volume fraction] 43.4 % Normal 34.0-46.4 [facility] Comment on above: Performed By: #### V ITD+D2+D3, THYROID PROF II #### [facility] , #### CMP, CBC #### [facility] [address] [place] [address] Hemoglobin [Mass/volume] in BloodOrdered By: Pam Wagoner on 07-08-2023 Hemoglobin (Bld) [Mass/Vol] 14.7 g/dL Normal 11.8-15.4 [facility] Comment on above: Performed By: #### V ITD+D2+D3, THYROID PROF II #### [facility] , #### CMP, CBC #### [facility] [address] [place] [address] Leukocytes [#/volume] correc chantelle for nucleated erythrocytes in Blood by Automated counOrdered By: Pam Wagoner on 07-08-2023 WBC corrected for nucl RBC Auto (Bld) [#/Vol] 6.7 10*3/uL 3.8-11.6 [facility] Leukocytes [#/volume] in Blo od by Automated countOrdered By: Pam Wagoner on 07-08-2023 WBC (Bld) [#/Vol] 6.7 10*3/uL Normal 3.8-11.6 [facility] Comment on above: Performed By: #### V ITD+D2+D3, THYROID PROF II #### [facility] , #### CMP, CBC #### [facility] [address] [place] [address] [place] Lymphocytes [#/volume] in Bl ood by Automated countOrdered By: Pam Wagoner on 07-08-2023 Lymphocytes (Bld) [#/Vol] 1.7 10*3/uL Normal 1.00-4.8 [facility] Comment on above: Performed By: #### V ITD+D2+D3, THYROID PROF II #### [facility] , #### CMP, CBC #### [facility] [address] [place] [address] [place] Lymphocytes/100 leukocytes i n Blood by Automated countOrdered By: Pam Wagoner on 07-08-2023 Lymphocytes/100 WBC (Bld) 25.8 % Normal . [facility] Comment on above: Performed By: #### V ITD+D2+D3, THYROID PROF II #### [facility] , #### CMP, CBC #### [facility] [address] [place] [address] [place] MCH [Entitic mass] by Automa chantelle countOrdered By: Pam Wagoner on 07-08-2023 MCH (RBC) [Entitic mass] 31.2 pg Normal 24.7-34.3 [facility] Comment on above: Performed By: #### V ITD+D2+D3, THYROID PROF II #### [facility] , #### CMP, CBC #### [facility] [address] [place] [address] MCHC Auto (RBC) [Mass/Vol]Or dered By: Pam Wagoner on 07-08-2023 MCHC (RBC) [Mass/Vol] 34.0 g/dL 32.0-35.[address] [facility] MCV [Entitic volume] by Auto mated countOrdered By: Pam Wagoner on 07-08-2023 MCV (RBC) [Entitic vol] 92.0 fL Normal 80-100 [facility] Comment on above: Performed By: #### V ITD+D2+D3, THYROID PROF II #### [facility] , #### CMP, CBC #### [facility] [address] Neutrophils [#/volume] in Bl ood by Automated countOrdered By: Pam Wagoner on 07-08-2023 Neutrophils (Bld) [#/Vol] 4.3 10*3/uL Normal 1.8-7.7 [facility] Comment on above: Performed By: #### V ITD+D2+D3, THYROID PROF II #### [facility] , #### CMP, CBC #### [facility] [address] No Panel InformationOrdered By: Pam Wagoner on 07-08-2023 Estimated GFR (CKD-EPI) > 60.0 mL/Min [facility] Free Thyroxine (T4) Direct 7.5 ug/dL 4.5-12.0 [facility] Creatinine Clearance (Chem N/A [facility] Nucleated erythrocytes [Pres ence] in Blood by Automated countOrdered By: Pam Wagoner on 07-08-2023 Nucleated RBC Auto Ql (Bld) 0.1 /100{WBC} 0-0.5 [facility] Platelet mean volume [Entiti c volume] in Blood by Automated countOrdered By: Pam Wagoner on 07-08-2023 Platelet mean volume (Bld) [Entitic vol] 7.8 fL Normal 6.3-10.7 [facility] Comment on above: Performed By: #### V ITD+D2+D3, THYROID PROF II #### [facility] , #### CMP, CBC #### [facility] [address] [place] [address] [place] Platelets [#/volume] in Bloo d by Automated countOrdered By: Pam Wagoner on 07-08-2023 Platelets (Bld) [#/Vol] 278 10*3/uL Normal 150-450 [facility] Comment on above: Performed By: #### V ITD+D2+D3, THYROID PROF II #### [facility] , #### CMP, CBC #### [address] Potassium [Moles/volume] in Serum or PlasmaOrdered By: Pam Wagoner on 07-08-2023 Potassium [Moles/Vol] 4.7 mmol/L Normal 3.5-5.[address] [facility] Comment on above: Performed By: #### V ITD+D2+D3, THYROID PROF II #### [facility] , #### CMP, CBC #### [address] Protein [Mass/volume] in Ser um or PlasmaOrdered By: Pam Wagoner on 07-08-2023 Protein [Mass/Vol] 7.5 g/dL Normal 6.4-8.9 [facility] Comment on above: Performed By: #### V ITD+D2+D3, THYROID PROF II #### [facility] , #### CMP, CBC #### [address] Serum globulin measurement b y calculation (mass/volume)Ordered By: Pam Wagoner on 07-08-2023 Globulin (S) [Mass/Vol] 2.8 g/dL Normal [facility] Comment on above: Performed By: #### V ITD+D2+D3, THYROID PROF II #### [facility] , #### CMP, CBC #### [facility] [address] [place] [address] Serum or plasma 25-hydroxyca lciferol measurement (mass/volume)Ordered By: Pam Wagoner on 07-08-2023 25-hydroxyvitamin D2 [Mass/Vol] <1.0 ng/mL . [facility] Comment on above: This test was develo ped and its performance characteristicsdetermined by [facility]. It has not been cleared or approvedby the Food and Drug Administration. Serum or plasma 25-hydroxyvi tamin D measurement (mass/volume)Ordered By: Pam Wagoner on 07-08-2023 25-hydroxyvitamin D [Mass/Vol] 6.8 ng/mL . [facility] Comment on above: Reference Range:All Ages: Target levels 30 - 100 Serum or plasma albumin/glob ulin mass ratioOrdered By: Pam Wagoner on 07-08-2023 Albumin/Globulin [Mass ratio] 1.7 {ratio} Normal [facility] Comment on above: Performed By: #### V ITD+D2+D3, THYROID PROF II #### [facility] , #### CMP, CBC #### [facility] [address] [place] [address] Serum or plasma anion gap de terminationOrdered By: Pam Wagoner on 07-08-2023 Anion gap [Moles/Vol] 9.2 mmol/L Normal 6.0-15.[address] [facility] Comment on above: Performed By: #### V ITD+D2+D3, THYROID PROF II #### [facility] , #### CMP, CBC #### [facility] [address] [place] [address] Serum or plasma calcidiol me asurement (mass/volume)Ordered By: Pam Wagoner on 07-08-2023 25-hydroxyvitamin D3 [Mass/Vol] 6.8 ng/mL . [facility] Comment on above: This test was develo ped and its performance characteristicsdetermined by [facility]. It has not been cleared or approvedby the Food and Drug Administration.Performed at: [facility] [employer] [id number] [place] [address] [id number] Director: Santos Chahal MD, Phone: [phone] Serum or plasma thyroid stim ulating hormone (TSH) measurement by high sensitivity metOrdered By: Pam Wagoner on 07-08-2023 TSH Qn 5.980 m[IU]/L High 0.450-4.500 [facility] Comment on above: Result Comment: PERF ORMED BY: [place] [address] PATHOLOGIST FINANCIAL ECONOMIST HARVINDER GAGE M.D. Performed By: #### V ITD+D2+D3, THYROID PROF II #### [facility] , #### CMP, CBC #### [facility] [address] [place] [address] Sodium [Moles/volume] in Ser um or PlasmaOrdered By: Pam Wagoner on 07-08-2023 Sodium [Moles/Vol] 136 mmol/L Normal 136-145 [facility] Comment on above: Performed By: #### V ITD+D2+D3, THYROID PROF II #### [facility] , #### CMP, CBC #### [address] T3 uptakeOrdered By: Pam Wagoner on 07-08-2023 T3RU 24 % 24-39 [facility] Thyroid Profile IIon 024 Free Thyroxine Index 1.8 Normal 1.2-4.9 [facility] Comment on above: Performed By: #### V ITD+D2+D3, THYROID PROF II #### [facility] , #### CMP, CBC #### [facility] [address] [place] [address] [facility] Triiodothyronine,(T3) 124 ng/dL Normal 71-180 [facility] Comment on above: Result Comment: Perf ormed at: - [facility] [address] [id number] Visitor Services Information Assistant: Spencer Martinez PhD, Phone: [phone] Performed By: #### V ITD+D2+D3, THYROID PROF II #### [facility] , #### CMP, CBC #### [facility] [address] [place] [address] T4 [Mass/Vol] 7.5 ug/dL Normal 4.5-12.0 [facility] Comment on above: Performed By: #### V ITD+D2+D3, THYROID PROF II #### [facility] , #### CMP, CBC #### [address] Triiodothryronine (T3) Uptake 24 % Normal 24-39 [facility] Comment on above: Performed By: #### V ITD+D2+D3, THYROID PROF II #### [facility] , #### CMP, CBC #### [address] Triiodothyronine (T3) [Mass/ volume] in Serum or PlasmaOrdered By: Pam Wagoner on 07-08-2023 T3 [Mass/Vol] 124 ng/dL 71-180 [facility] Comment on above: Performed at: [address] Director: Spencer Martinez PhD, Phone: [phone] Urea nitrogen [Mass/volume] in Serum or PlasmaOrdered By: Pam Wagoner on 07-08-2023 Urea nitrogen [Mass/Vol] 26 mg/dL High 7-25 [facility] Comment on above: Performed By: #### V ITD+D2+D3, THYROID PROF II #### [facility] , #### CMP, CBC #### [place] [address] [place] Vitamin D 25 Hydroxy,Tot+D2+ D3on 07-08-2023 [facility] Vitamin D 25 OH 6.8 ng/mL Low . [facility] Comment on above: Result Comment: [place] Range: All Ages: Target levels 30 - 100 Performed By: #### V ITD+D2+D3, THYROID PROF II #### [facility] , #### CMP, CBC #### [facility] [address] [place] [address] [place] Vitamin D-2 <1.0 Normal . [facility] Comment on above: Result Comment: This test was developed and its performance characteristics determined by [facility]. It has not been cleared or approved by the Food and Drug Administration. Performed By: #### V ITD+D2+D3, THYROID PROF II #### [facility] , #### CMP, CBC #### [facility] [address] [place] [address] Vitamin D-3 6.8 ng/mL Normal . [facility] Comment on above: Result Comment: This test was developed and its performance characteristics determined by [facility]. It has not been cleared or approved by the Food and Drug Administration. Performed at: [facility] [address] [place] [id number] Visitor Services Information Assistant: Santos Chahal MD, Phone: [phone] PERFORMED BY: [place] [address] PATHOLOGIST FINANCIAL ECONOMIST HARVINDER GAGE M.D. Performed By: #### V ITD+D2+D3, THYROID PROF II #### [facility] , #### CMP, CBC #### [facility] [address] [place] [address] Progress Note - Nutritionon 06-04-2023 Progress Note - Nutrition Pt is here today for an initial DM MNT appt. Pt has had diabetes for two years. 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 Normal [facility] BD Bone Density DEXAon 05-29 BD Bone [...] MD, V. Transcribed by: EUSEBIA Technologist: SENIA Noyola [facility] Consent for Treatmenton 03-0 Consent for Treatment [id number] Normal [facility] Consent for Treatment [id number] Normal [facility] Physician Orderon 05-20-2023 Physician Order [id number] Normal [facility] Physician Referralon 024 Physician Referral [id number] Normal [facility] US community outreach caroti don 02-28-2023 community outreach carotid [facility] [place] [address] Ultrasound Report Signed Patient: Ruma Carlton MR#: [id number] : 1960 Acct:[id number] Age/Sex: 62 / F ADM Date: 02/25/23 Loc: Room: Type: DEP REF Attending Dr: Colin Community Ordering Provider: COLIN SOTO Date of Service: 02/25/23 US/ community outreach carotid: SCREENING Copies to: [facility],OUTREACH CAROTID DUPLEX INDICATION: Community outreach screening program. [...] Carmelita Holman MD02/28/2023 10:51 AM Dictation [facility] Tech: Ruby Kianna Transcribed By: [facility] 02/28/23 1051 Dictated By: Carmelita Holman MD 02/28/23 1050 Signed By: 02/28/23 1051 Normal [facility] Basic Metabolic Panelon 10-0 Creatinine Clr Calc Pharmacy 103.69 Normal [facility] Comment on above: Result Comment: PERF ORMED BY: [place] [address] PATHOLOGIST FINANCIAL ECONOMIST HARVINDER GAGE M.D. Performed By: #### B MP #### [facility] [address] [place] [address] GFR/1.73 sq M.predicted MDRD (S/P/Bld) [Vol rate/Area] mL/min/{1.73_m2} Normal [facility] Comment on above: Performed By: #### B MP #### [address] Calcium [Mass/volume] in Ser um or PlasmaOrdered By: Froilan Brown on 12-24-2022 Calcium [Mass/Vol] 8.8 mg/dL Normal 8.6-10.3 [facility] Comment on above: Performed By: #### B MP #### [place] [id number] [place] Carbon dioxide, total [Moles /volume] in Serum or PlasmaOrdered By: Froilan Brown on 12-24-2022 CO2 [Moles/Vol] 25.8 mmol/L Normal 21.0-31.0 [facility] Comment on above: Performed By: #### B MP #### [facility] [address] Chloride [Moles/volume] in S davi or PlasmaOrdered By: Froilan Brown on 12-24-2022 Chloride [Moles/Vol] 104 mmol/L Normal 98-107 [facility] Comment on above: Performed By: #### B MP #### [facility] [address] Creatinine [Mass/volume] in Serum or PlasmaOrdered By: Froilan Brown on 12-24-2022 Creatinine [Mass/Vol] 0.61 mg/dL Normal 0.60-1.[address] [facility] Comment on above: Performed By: #### B MP #### [address] ECG 12 lead ECGon 12-24-2022 ECG 12 lead ECG [facility] [place] [address] [place] [address] Electrocardiograph Report Signed Patient: Ruma Carlton MR#: [id number] : 1960 Acct:[id number] Age/Sex: 62 / F ADM Date: 12/24/22 Loc: Room: [address] [place] [address] Type: DIS INOo Attending Dr: Petr Kowalski [...] evident in Lateral leads Confirmed by REGINA MLOINA MD, FACC () on 12/25/2022 10:57:22 AM Referred By: Electronically Signed By:REGINA MOLINA MD, FACC Transcribed By: MUS Signed By Sukhi Molina MD 12/25/22 105 Normal [facility] ECG 12 lead ECG [facility] [place] [address] Electrocardiograph Report Signed Patient: Ruma Carlton MR#: [id number] : 1960 Acct:[id number] Age/Sex: 62 / F ADM Date: 12/24/22 Loc: Room: [address] [place] [address] Type: DIS INOo Attending Dr: Petr Kowalski [...] By Sukhi Molina MD 12/25/22 105 Normal [facility] Glucose [Mass/volume] in Ser um or PlasmaOrdered By: Froilan Brown on 12-24-2022 Glucose [Mass/Vol] 113 mg/dL High 70-100 [facility] Comment on above: ADA recommended refe rence rangeRandom Glucose Reference Range is dependent on time and content of last meal. Glucose of more than 200 mg/dL in a nonstressed, ambulatory subject supports the diagnosis of Diabetes Mellitus. Result Comment: [place] om Glucose Reference Range is dependent on time and content of last meal. Glucose of more than 200 mg/dL in a nonstressed, ambulatory subject supports the diagnosis of Diabetes Mellitus. ADA recommended reference range Performed By: #### B MP #### [address] No Panel InformationOrdered By: Froilan Brown on 12-24-2022 Estimated GFR (CKD-EPI) > 60.0 mL/Min [facility] Creatinine Clearance (Chem 103.69 [facility] Potassium [Moles/volume] in Serum or PlasmaOrdered By: Froilan Brown on 12-24-2022 Potassium [Moles/Vol] 4.3 mmol/L Normal 3.5-5.[address] [facility] Comment on above: Performed By: #### B MP #### [address] Serum or plasma anion gap de terminationOrdered By: Froilan Brown on 12-24-2022 Anion gap [Moles/Vol] 9.5 mmol/L Normal 6.0-15.[address] [facility] Comment on above: Performed By: #### B MP #### [address] Sodium [Moles/volume] in Ser um or PlasmaOrdered By: Froilan Brown on 12-24-2022 Sodium [Moles/Vol] 135 mmol/L Low 136-145 [facility] Comment on above: Performed By: #### B MP #### [address] Troponin I High Sensitivityo n 12-24-2022 Troponin I High Sensitivity 7.7 pg/mL Normal 0.0-15.0 [facility] Comment on above: Result Comment: PERF ORMED BY: [place] [address] PATHOLOGIST FINANCIAL ECONOMIST HARVINDER GAGE M.D. Performed By: #### V ITD+D2+D3, THYROID PROF II #### [facility] , #### CMP, CBC #### [address] Troponin I.cardiac [Mass/vol ume] in Serum or Plasma by Detection limit <= 0.01 ng/Ordered By: Froilan Brown on 12-24-2022 Troponin I.cardiac DL <= 0.01 ng/mL [Mass/Vol] 7.7 pg/mL 0.0-15.0 [facility] Urea nitrogen [Mass/volume] in Serum or PlasmaOrdered By: Froilan Brown on 12-24-2022 Urea nitrogen [Mass/Vol] 8 mg/dL Normal 7-25 [facility] Comment on above: Performed By: #### B MP #### [address] CBC AUTO DIFFon 05-27-2022 BASO # 0.1 103/ul Normal 0.0-0.1 [facility] Comment on above: Performed By: #### C BC #### [facility] [address] [address] [address] Domi Saleem Basophils/100 WBC (Bld) 1.2 % Normal 0.2-2.0 [facility] Comment on above: Performed By: #### C BC #### [facility] [address] [address] [address] Domi Saleem EO # 0.3 103/ul Normal 0.0-0.7 [facility] Comment on above: Performed By: #### C BC #### [facility] [address] [address] [address] Domi Saleem Eosinophils/100 WBC (Bld) 3.8 % Normal 0.9-7.0 [facility] Comment on above: Performed By: #### C BC #### [facility] [address] [address] [address] Domi Saleem Erythrocyte distribution width (RBC) [Ratio] 12.5 % Normal 11.0-15.0 [facility] Comment on above: Performed By: #### C BC #### [facility] [address] [place] [address] Dr. Domi Saleem Hematocrit (Bld) [Volume fraction] 42.5 % Normal 36.0-48.0 [facility] Comment on above: Performed By: #### C BC #### [facility] [address] [place] [address] Dr. Domi Saleem Hemoglobin (Bld) [Mass/Vol] 14.6 g/dL Normal 12.0-16.0 [facility] Comment on above: Performed By: #### C BC #### [facility] [address] [place] [address] Dr. Domi Saleem IG # 0.04 10e3/ul Critically high 0.00-0.03 [facility] Comment on above: Performed By: #### C BC #### [facility] [address] [place] [address] Dr. Domi Saleem IG % 0.6 % Critically high 0.0-0.5 [facility] Comment on above: Performed By: #### C BC #### [facility] [address] [place] [address] Dr. Domi Saleem LYMPH # 1.3 103/ul Normal 1.2-3.8 [facility] Comment on above: Performed By: #### C BC #### [facility] [address] [place] [address] Dr. Domi Saleem Lymphocytes/100 WBC (Bld) 18.5 % Critically low 20.5-60.0 [facility] Comment on above: Performed By: #### C BC #### [facility] [address] [place] [address] Dr. Domi Saleem MANUAL DIFF REQ NO Normal [facility] Comment on above: Performed By: #### C BC #### [facility] [address] [place] [address] Dr. Domi Saleem MCH (RBC) [Entitic mass] 31.1 pg Normal 26.7-34.0 [facility] Comment on above: Performed By: #### C BC #### [facility] [address] [address] [address] Domi Saleem MCHC (RBC) [Mass/Vol] 34.4 g/dL Normal 29.9-35.2 [facility] Comment on above: Performed By: #### C BC #### [facility] [address] [address] [address] Domi Saleem MCV (RBC) [Entitic vol] 90.4 fL Normal 81.0-99.0 [facility] Comment on above: Performed By: #### C BC #### [facility] [address] [place] [address] Dr. Domi Saleem MONO # 0.3 103/ul Normal 0.3-0.8 [facility] Comment on above: Performed By: #### C BC #### [facility] [address] [place] [address] Dr. Domi Saleem Monocytes/100 WBC (Bld) 4.2 % Normal 1.7-12.0 [facility] Comment on above: Performed By: #### C BC #### [facility] [address] [place] [address] Dr. Domi Saleem NEUT # 5.0 103/ul Normal 1.4-6.5 [facility] Comment on above: Performed By: #### C BC #### [facility] [address] [place] [address] Dr. Domi Saleem Neutrophils/100 WBC (Bld) 71.7 % Normal 43.0-75.0 [facility] Comment on above: Performed By: #### C BC #### [facility] [address] [place] [address] Dr. Domi Saleem Platelet mean volume (Bld) [Entitic vol] 8.6 fL Critically low 9.5-13.5 [facility] Comment on above: Performed By: #### C BC #### [facility] [address] [place] [address] Dr. Domi Saleem PLT 265 103/ul Normal 150-450 [facility] Comment on above: Performed By: #### C BC #### [facility] [address] [place] [address] Dr. Domi Saleem RBC 4.70 106/ul Normal 4.20-5.40 [facility] Comment on above: Performed By: #### C BC #### [facility] [address] [place] [address] Dr. Domi Saleem WBC 6.9 103/ul Normal 4.0-11.0 [facility] Comment on above: Performed By: #### C BC #### [facility] [address] [place] [address] Dr. Domi Saleem PROF 14(COMP METB)on 023 Albumin [Mass/Vol] 3.7 g/dL Normal 3.4-5.0 [facility] Comment on above: Performed By: #### C MP #### [facility] [address] [place] [address] Dr. Domi Saleem Albumin/Globulin [Mass ratio] 0.9 {ratio} Normal [facility] Comment on above: Performed By: #### C MP #### [facility] [address] [place] [address] Dr. Domi Saleem ALP [Catalytic activity/Vol] 101 U/L Normal 46-116 [facility] Comment on above: Performed By: #### C MP #### [facility] [address] [place] [address] Dr. Domi Saleem ALT [Catalytic activity/Vol] 15 U/L Normal 14-59 [facility] Comment on above: Performed By: #### C MP #### [facility] [address] [place] [address] Dr. Domi Saleem Anion gap [Moles/Vol] 11.9 mmol/L Normal [facility] Comment on above: Performed By: #### C MP #### [facility] [address] [place] [address] Dr. Domi Saleem AST [Catalytic activity/Vol] 16 U/L Normal 15-37 [facility] Comment on above: Performed By: #### C MP #### [facility] [address] [place] [address] Dr. Domi Saleem Bilirubin [Mass/Vol] 0.3 mg/dL Normal 0.2-1.0 [facility] Comment on above: Performed By: #### C MP #### [facility] [address] [address] [address] Domi Saleem Calcium [Mass/Vol] 9.0 mg/dL Normal 8.5-10.1 [facility] Comment on above: Performed By: #### C MP #### [facility] [address] [address] [address] Domi Saleem Chloride [Moles/Vol] 100 mmol/L Normal 98-107 [facility] Comment on above: Performed By: #### C MP #### [facility] [address] [place] [address] Dr. Domi Saleem CO2 [Moles/Vol] 29.0 mmol/L Normal 21.0-32.0 [facility] Comment on above: Performed By: #### C MP #### [facility] [address] [place] [address] Dr. Domi Saleem Creatinine [Mass/Vol] 0.69 mg/dL Normal 0.55-1.02 [facility] Comment on above: Performed By: #### C MP #### [facility] [address] [place] [address] Dr. Domi Saleem EGFR-AF [place]OREAN >60 Normal >=60 [facility] Comment on above: Performed By: #### C MP #### [facility] [address] [place] [address] Dr. Domi Saleem EGFR-NON AF [place]ORE[place] >60 Normal >=60 [facility] Comment on above: Performed By: #### C MP #### [facility] [address] [address] [address] Domi Saleem Globulin (S) [Mass/Vol] 4.2 g/dL Normal [facility] Comment on above: Performed By: #### C MP #### [facility] [address] [place] [address] Dr. Domi Saleem Glucose [Mass/Vol] 124 mg/dL Critically high 74-106 [facility] Comment on above: Performed By: #### C MP #### [facility] [address] [address] [address] Domi Saleem Potassium [Moles/Vol] 4.9 mmol/L Normal 3.5-5.1 [facility] Comment on above: Performed By: #### C MP #### [facility] [address] [address] [address] Domi Saleem Protein [Mass/Vol] 7.9 g/dL Normal 6.4-8.2 [facility] Comment on above: Performed By: #### C MP #### [facility] [address] [address] [address] Domi Saleem Sodium [Moles/Vol] 136 mmol/L Normal 136-145 [facility] Comment on above: Performed By: #### C MP #### [facility] [address] [address] [address] Domi Saleem Urea nitrogen [Mass/Vol] 9.0 mg/dL Normal 7.0-18.0 [facility] Comment on above: Performed By: #### C MP #### [facility] [address] [address] [address] Domi Saleem Urea nitrogen/Creatinine [Mass ratio] 13.0 mg/mg Normal [facility] Comment on above: Performed By: #### C MP #### [facility] Laboratory [address] [address] [address] Domi Saleem SED RATE [facility] 2022 SED RATE 21 mm/hr Normal <=30 [facility] Comment on above: Performed By: #### S EDR #### [facility] [address] [address] [address] Domi Saleem CHEMISTRYOrdered By: SYSTEM SYSTEM on 02-11-2022 Anion gap [Moles/Vol] 14 mmol/L Normal 6 - 16 mEq/L [facility] Remisol Calcium [Mass/Vol] 9.2 mg/dL Normal 8.9 - 11. 1 mg/dL [facility] Chloride [Moles/Vol] 92 mmol/L Low 101 - 1 11 mmol/L [facility] CO2 [Moles/Vol] 28 mmol/L Normal 21 - 31 mmol/L [facility] Creatinine [Mass/Vol] 0.8 mg/dL Normal 0.5 - 1.3 mg/dL [facility] Remisol GFR/1.73 sq M.predicted among blacks MDRD (S/P/Bld) [Vol rate/Area] mL/min/1.73 m2 Normal >=59mL/min/ 1.73 m2 [facility] Chem S GFR/1.73 sq M.predicted among non-blacks MDRD (S/P/Bld) [Vol rate/Area] mL/min/1.73 m2 Normal >=59mL/min/ 1.73 m2 [facility] S Glucose [Mass/Vol] 108 mg/dL Normal 55 - 199 mg/dL [facility] Remisol Potassium [Moles/Vol] 4.0 mmol/L Normal 3.5 [...] 35.2 g/dL Normal 31.4 - 36.0 gm/dL [facility] HemeAutoSS MCV (RBC) [Entitic vol] 89.7 fL Normal 80.0 - 100.0 fL [facility] HemeAutoSS Platelet mean volume (Bld) [Entitic vol] 6.8 fL Normal 6.4 - 10.8 fL [facility] HemeAutoSS Platelets (Bld) [#/Vol] 275.0 E9/L Normal 150.0 - 500.0 E9/L [facility] [place] [facility] RBC (Bld) [#/Vol] 4.8 E12/L Normal 4.3 - 5.9 E12/L [facility] [place] [facility] WBC corrected for nucl RBC Auto (Bld) [#/Vol] 7.3 E9/L Normal 4.0 - 11.0 E9/L [facility] [place] [facility] CBC AUTO DIFFon 11-19-2021 BASO # 0.1 103/ul Normal 0.0-0.1 [facility] Comment on above: Performed By: #### C BC #### [facility] [address] [address] [address] Domi Saleem Basophils/100 WBC (Bld) 0.9 % Normal 0.2-2.0 [facility] Comment on above: Performed By: #### C BC #### [facility] [address] [address] [address] Domi Saleem EO # 0.2 103/ul Normal 0.0-0.7 [facility] Comment on above: Performed By: #### C BC #### [facility] [address] [address] [address] Domi Saleem Eosinophils/100 WBC (Bld) 2.4 % Normal 0.9-7.0 [facility] Comment on above: Performed By: #### C BC #### [facility] [address] [address] [address] Domi Saleem Erythrocyte distribution width (RBC) [Ratio] 12.6 % Normal 11.0-15.0 [facility] Comment on above: Performed By: #### C BC #### [facility] [address] [place] [address] Dr. Domi Saleem Hematocrit (Bld) [Volume fraction] 44.4 % Normal 36.0-48.0 [facility] Comment on above: Performed By: #### C BC #### [facility] [address] [address] [address] Domi Saleem Hemoglobin (Bld) [Mass/Vol] 15.1 g/dL Normal 12.0-16.0 [facility] Comment on above: Performed By: #### C BC #### [facility] [address] [place] [address] Dr. Domi Saleem IG # 0.04 10e3/ul Critically high 0.00-0.03 [facility] Comment on above: Performed By: #### C BC #### [facility] [address] [place] [address] Dr. Domi Saleem IG % 0.5 % Normal 0.0-0.5 [facility] Comment on above: Performed By: #### C BC #### [facility] [address] [place] [address] Dr. Domi Saleem LYMPH # 1.6 103/ul Normal 1.2-3.8 [facility] Comment on above: Performed By: #### C BC #### [facility] [address] [place] [address] Dr. Domi Saleem Lymphocytes/100 WBC (Bld) 19.1 % Critically low 20.5-60.0 [facility] Comment on above: Performed By: #### C BC #### [facility] [address] [place] [address] Dr. oDmi Saleem MANUAL DIFF REQ NO Normal [facility] Comment on above: Performed By: #### C BC #### [facility] [address] [place] [address] Dr. Domi Saleem MCH (RBC) [Entitic mass] 31.5 pg Normal 26.7-34.0 [facility] Comment on above: Performed By: #### C BC #### [facility] [address] [place] [address] Dr. Domi Saleem MCHC (RBC) [Mass/Vol] 34.0 g/dL Normal 29.9-35.2 [facility] Comment on above: Performed By: #### C BC #### [facility] [address] [place] [address] Dr. Domi Saleem MCV (RBC) [Entitic vol] 92.5 fL Normal 81.0-99.0 [facility] Comment on above: Performed By: #### C BC #### [facility] [address] [place] [address] Dr. Domi Saleem MONO # 0.5 103/ul Normal 0.3-0.8 [facility] Comment on above: Performed By: #### C BC #### [facility] [address] [place] [address] Dr. Domi Saleem Monocytes/100 WBC (Bld) 6.1 % Normal 1.7-12.0 [facility] Comment on above: Performed By: #### C BC #### [facility] [address] [place] [address] Dr. Domi Saleem NEUT # 5.8 103/ul Normal 1.4-6.5 [facility] Comment on above: Performed By: #### C BC #### [facility] [address] [place] [address] Dr. Domi Saleem Neutrophils/100 WBC (Bld) 71.0 % Normal 43.0-75.0 [facility] Comment on above: Performed By: #### C BC #### [facility] [address] [place] [address] Dr. oDmi Saleem Platelet mean volume (Bld) [Entitic vol] 8.7 fL Critically low 9.5-13.5 [facility] Comment on above: Performed By: #### C BC #### [facility] [address] [place] [address] Dr. Domi Saleem PLT 246 103/ul Normal 150-450 [facility] Comment on above: Performed By: #### C BC #### [facility] [address] [place] [address] Dr. Domi Saleem RBC 4.80 106/ul Normal 4.20-5.40 [facility] Comment on above: Performed By: #### C BC #### [facility] [address] [place] [address] Dr. Domi Saleem WBC 8.2 103/ul Normal 4.0-11.0 [facility] Comment on above: Performed By: #### C BC #### [facility] [address] [address] [address] Domi Saleem GLYCOHEMOGLOBIN A1Con 2021 ADA RECOMMENDATION SEE BELOW Normal [facility] Comment on above: Result Comment: ADA RECOMMENDED LIMIT 4.0 - 6.0 ADA THERAPEUTIC TARGET < 7.0 ACTION SUGGESTED > 7.0 Performed By: #### A 1C #### [facility] [address] [place] [address] Dr. Domi Saleem Glucose [Mass/Vol] 117 mg/dL Normal [facility] Comment on above: Performed By: #### A 1C #### [facility] [address] [place] [address] Dr. Domi Saleem HbA1c (Bld) [Mass fraction] 5.7 % Normal 4.5-6.2 [facility] Comment on above: Performed By: #### A 1C #### [facility] [address] [place] [address] Dr. Domi Saleem PROF 14(COMP METB)on 022 Albumin [Mass/Vol] 4.0 g/dL Normal 3.4-5.0 [facility] Comment on above: Performed By: #### C MP #### [facility] [address] [place] [address] Dr. Domi Saleem Albumin/Globulin [Mass ratio] 1.1 {ratio} Normal [facility] Comment on above: Performed By: #### C MP #### [facility] [address] [place] [address] Dr. Domi Saleem ALP [Catalytic activity/Vol] 91 U/L Normal 46-116 [facility] Comment on above: Performed By: #### C MP #### [facility] [address] [place] [address] Dr. Domi Saleem ALT [Catalytic activity/Vol] 16 U/L Normal 14-59 [facility] Comment on above: Performed By: #### C MP #### [facility] [address] [place] [address] Dr. Domi Saleem Anion gap [Moles/Vol] 10.3 mmol/L Normal [facility] Comment on above: Performed By: #### C MP #### [facility] [address] [address] [address] Domi Saleem AST [Catalytic activity/Vol] 24 U/L Normal 15-37 [facility] Comment on above: Performed By: #### C MP #### [facility] [address] [address] [address] Domi Saleem Bilirubin [Mass/Vol] 0.5 mg/dL Normal 0.2-1.0 [facility] Comment on above: Performed By: #### C MP #### [facility] [address] [place] [address] Dr. Domi Saleem Calcium [Mass/Vol] 9.1 mg/dL Normal 8.5-10.1 [facility] Comment on above: Performed By: #### C MP #### [facility] [address] [place] [address] Dr. Domi Saleem Chloride [Moles/Vol] 95 mmol/L Critically low 98-107 [facility] Comment on above: Performed By: #### C MP #### [facility] [address] [place] [address] Dr. Domi Saleem CO2 [Moles/Vol] 27.4 mmol/L Normal 21.0-32.0 [facility] Comment on above: Performed By: #### C MP #### [facility] [address] [place] [address] Dr. Domi Saleem Creatinine [Mass/Vol] 0.77 mg/dL Normal 0.55-1.02 [facility] Comment on above: Performed By: #### C MP #### [facility] [address] [place] [address] Dr. Domi Saleem EGFR-AF [place]OU[place]ORE[place] >60 Normal >=60 [facility] Comment on above: Performed By: #### C MP #### [facility] [address] [place] [address] Dr. Domi Saleem EGFR-NON AF [place]ORE[place] >60 Normal >=60 [facility] Comment on above: Performed By: #### C MP #### [facility] [address] [place] [address] Dr. Domi Saleem Globulin (S) [Mass/Vol] 3.8 g/dL Normal [facility] Comment on above: Performed By: #### C MP #### [facility] [address] [address] [address] Domi Saleem Glucose [Mass/Vol] 141 mg/dL Critically high 74-106 [facility] Comment on above: Performed By: #### C MP #### [facility] [address] [address] [address] Domi Saleem Potassium [Moles/Vol] 4.7 mmol/L Normal 3.5-5.1 [facility] Comment on above: Performed By: #### C MP #### [facility] [address] [address] [address] Domi Saleem Protein [Mass/Vol] 7.8 g/dL Normal 6.4-8.2 [facility] Comment on above: Performed By: #### C MP #### [facility] [address] [place] [address] Dr. Domi Saleem Sodium [Moles/Vol] 128 mmol/L Critically low 136-145 [facility] Comment on above: Performed By: #### C MP #### [facility] [address] [place] [address] Dr. Domi Saleem Urea nitrogen [Mass/Vol] 14.0 mg/dL Normal 7.0-18.0 [facility] Comment on above: Performed By: #### C MP #### [facility] [address] [address] [address] Domi Saleem Urea nitrogen/Creatinine [Mass ratio] 18.2 mg/mg Normal [facility] Comment on above: Performed By: #### C MP #### [facility] [address] [place] [address] Dr. Domi Saleem SED RATE [facility] 2021 SED RATE 34 mm/hr Critically high <=30 [facility] Comment on above: Performed By: #### S EDR #### [facility] [address] [place] [address] Dr. Domi Saleem CBC AUTO DIFFon 07-18-2021 BASO # 0.1 103/ul Normal 0.0-0.1 [facility] Comment on above: Performed By: #### C BC #### [facility] [address] [place] [address] Dr. Domi Saleem Basophils/100 WBC (Bld) 1.2 % Normal 0.2-2.0 [facility] Comment on above: Performed By: #### C BC #### [facility] [address] [place] [address] Dr. Domi Saleem EO # 0.2 103/ul Normal 0.0-0.7 [facility] Comment on above: Performed By: #### C BC #### [facility] [address] [place] [address] Dr. Domi Saleem Eosinophils/100 WBC (Bld) 4.0 % Normal 0.9-7.0 [facility] Comment on above: Performed By: #### C BC #### [facility] [address] [place] [address] Dr. Domi Saleem Erythrocyte distribution width (RBC) [Ratio] 12.8 % Normal 11.0-15.0 [facility] Comment on above: Performed By: #### C BC #### [facility] [address] [place] [address] Dr. Domi Saleem Hematocrit (Bld) [Volume fraction] 45.2 % Normal 36.0-48.0 [facility] Comment on above: Performed By: #### C BC #### [facility] [address] [place] [address] Dr. Domi Saleem Hemoglobin (Bld) [Mass/Vol] 15.0 g/dL Normal 12.0-16.0 [facility] Comment on above: Performed By: #### C BC #### [facility] [address] [place] [address] Dr. Domi Saleem IG # 0.02 10e3/ul Normal 0.00-0.03 [facility] Comment on above: Performed By: #### C BC #### [facility] [address] [place] [address] Dr. Domi Saleem IG % 0.4 % Normal 0.0-0.5 [facility] Comment on above: Performed By: #### C BC #### [facility] [address] [place] [address] Dr. Domi Saleem LYMPH # 1.1 103/ul Critically low 1.2-3.8 [facility] Comment on above: Performed By: #### C BC #### [facility] [address] [place] [address] Dr. Domi Saleem Lymphocytes/100 WBC (Bld) 22.8 % Normal 20.5-60.0 [facility] Comment on above: Performed By: #### C BC #### [facility] [address] [place] [address] Dr. Domi Saleem MANUAL DIFF REQ NO Normal [facility] Comment on above: Performed By: #### C BC #### [facility] [address] [place] [address] Dr. Domi Saleem MCH (RBC) [Entitic mass] 31.4 pg Normal 26.7-34.0 [facility] Comment on above: Performed By: #### C BC #### [facility] [address] [place] [address] Dr. Domi Saleem MCHC (RBC) [Mass/Vol] 33.2 g/dL Normal 29.9-35.2 [facility] Comment on above: Performed By: #### C BC #### [facility] [address] [place] [address] Dr. Domi Saleem MCV (RBC) [Entitic vol] 94.8 fL Normal 81.0-99.0 [facility] Comment on above: Performed By: #### C BC #### [facility] [address] [place] [address] Dr. Domi Saleem MONO # 0.3 103/ul Normal 0.3-0.8 [facility] Comment on above: Performed By: #### C BC #### [facility] [address] [place] [address] Dr. Domi Saleem Monocytes/100 WBC (Bld) 6.8 % Normal 1.7-12.0 [facility] Comment on above: Performed By: #### C BC #### [facility] [address] [place] [address] Dr. Domi Saleem NEUT # 3.2 103/ul Normal 1.4-6.5 [facility] Comment on above: Performed By: #### C BC #### [facility] [address] [place] [address] Dr. Domi Saleem Neutrophils/100 WBC (Bld) 64.8 % Normal 43.0-75.0 [facility] Comment on above: Performed By: #### C BC #### [facility] [address] [place] [address] Dr. Domi Saleem Platelet mean volume (Bld) [Entitic vol] 8.9 fL Critically low 9.5-13.5 [facility] Comment on above: Performed By: #### C BC #### [facility] [address] [place] [address] Dr. Domi Saleem PLT 222 103/ul Normal 150-450 [facility] Comment on above: Performed By: #### C BC #### [facility] [address] [place] [address] Dr. Domi Saleem RBC 4.77 106/ul Normal 4.20-5.40 [facility] Comment on above: Performed By: #### C BC #### [facility] [address] [place] [address] Dr. Domi Saleem WBC 5.0 103/ul Normal 4.0-11.0 [facility] Comment on above: Performed By: #### C BC #### [facility] [address] [place] [address] Dr. Domi Saleem PROF 14(COMP METB)on 022 Albumin [Mass/Vol] 3.6 g/dL Normal 3.4-5.0 [facility] Comment on above: Performed By: #### C MP #### [facility] [address] [place] [address] Dr. Domi Saleem Albumin/Globulin [Mass ratio] 1.0 {ratio} Normal [facility] Comment on above: Performed By: #### C MP #### [facility] [address] [address] [address] Domi Saleem ALP [Catalytic activity/Vol] 79 U/L Normal 46-116 [facility] Comment on above: Performed By: #### C MP #### [facility] [address] [address] [address] Domi Saleem ALT [Catalytic activity/Vol] 19 U/L Normal 14-59 [facility] Comment on above: Performed By: #### C MP #### [facility] [address] [address] [address] Domi Saleem Anion gap [Moles/Vol] 10.0 mmol/L Normal [facility] Comment on above: Performed By: #### C MP #### [facility] [address] [place] [address] Dr. Domi Saleem AST [Catalytic activity/Vol] 13 U/L Critically low 15-37 [facility] Comment on above: Performed By: #### C MP #### [facility] [address] [address] [address] Domi Saleem Bilirubin [Mass/Vol] 0.3 mg/dL Normal 0.2-1.0 [facility] Comment on above: Performed By: #### C MP #### [facility] [address] [place] [address] Dr. Domi Saleem Calcium [Mass/Vol] 8.4 mg/dL Critically low 8.5-10.1 [facility] Comment on above: Performed By: #### C MP #### [facility] [address] [address] [address] Domi Saleem Chloride [Moles/Vol] 101 mmol/L Normal 98-107 [facility] Comment on above: Performed By: #### C MP #### [facility] [address] [address] [address] Domi Saleem CO2 [Moles/Vol] 31.3 mmol/L Normal 21.0-32.0 [facility] Comment on above: Performed By: #### C MP #### [facility] [address] [address] [address] Domi Saleem Creatinine [Mass/Vol] 0.75 mg/dL Normal 0.55-1.02 [facility] Comment on above: Performed By: #### C MP #### [facility] [address] [address] [address] Domi Saleem EGFR-AF [place] >60 Normal >=60 [facility] Comment on above: Performed By: #### C MP #### [facility] [address] [address] [address] Domi Saleem EGFR-NON AF [place] >60 Normal >=60 [facility] Comment on above: Performed By: #### C MP #### [facility] [address] [place] [address] Dr. Domi Saleem Globulin (S) [Mass/Vol] 3.6 g/dL Normal [facility] Comment on above: Performed By: #### C MP #### [facility] [address] [place] [address] Dr. Domi Saleem Glucose [Mass/Vol] 120 mg/dL Critically high 74-[address] [facility] Comment on above: Performed By: #### C MP #### [facility] [address] [place] [address] Dr. Domi Saleem Potassium [Moles/Vol] 5.3 mmol/L Critically high 3.5-5.1 [facility] Comment on above: Performed By: #### C MP #### [facility] [address] [place] [address] Dr. Domi Saleem Protein [Mass/Vol] 7.2 g/dL Normal 6.1-8.2 [facility] Comment on above: Performed By: #### C MP #### [facility] [address] [place] [address] Dr. Domi Saleem Sodium [Moles/Vol] 137 mmol/L Normal 136-145 [facility] Comment on above: Performed By: #### C MP #### [facility] [address] [place] [address] Dr. Domi Saleem Urea nitrogen [Mass/Vol] 20.0 mg/dL Critically high 7.0-18.0 [facility] Comment on above: Performed By: #### C MP #### [facility] [address] [place], [place] [address] Dr. Domi Saleem Urea nitrogen/Creatinine [Mass ratio] 26.7 mg/mg Normal [facility] Comment on above: Performed By: #### C MP #### [facility] [address] [place], [place] [address] Dr. Domi Saleem SED RATE [facility] 2021 SED RATE 13 mm/hr Normal <=30 [facility] Comment on above: Performed By: #### S EDR #### [facility] [address] [place] [address] [address] Domi Saleem CNOVSPon 08-20-2018 CNOVSP Visit (SP) Office (H EMACL) -- RUMA CARLTON ([id number]) 1960 F Date Time Provider Department 08/20/18 [...] ABS GRAN CT + CBC (FOR REMOTE [facility] USE) - COMP METABOLIC PANEL - PROTEIN ELECTROPHORESIS W/INTERP - IMMUNOFIXATION SCREEN, SERUM - KAPPA/GERMAIN,FREE,SER - LUPUS ANTICOAG PL 2. 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 Will check labs and see me in follow up - ABS GRAN CT + CBC (FOR REMOTE [facility] USE) - COMP METABOLIC PANEL - PROTEIN ELECTROPHORESIS W/INTERP - IMMUNOFIXATION SCREEN, SERUM - KAPPA/GERMAIN,FREE,SER - LUPUS ANTICOAG PL Ledy Gilman MD Referring Provider: CARMELITA SINGH JR [[id number]] Allergies As of Date: 08/20/2018 Noted Allergy [...] Order(s):ABS GRAN CT + CBC (FOR REMOTE [facility] USE) [SQRAGCBC] Order #: [id number] FUTURE COMP METABOLIC PANEL [SQCMP] Order #: [id number] FUTURE PROTEIN ELECTROPHORESIS W/INTERP [SQSEPG] Order #: [id number] FUTURE IMMUNOFIXATION SCREEN, SERUM [SQIFESC] Order #: [id number] FUTURE KAPPA/GERMAIN,FREE,SER [SQKLFRS] Order #: [id number] FUTURE LUPUS ANTICOAG PL [SQLUPUSP] Order #: [id number] FUTURE Disposition: Return in about 1 year [...] Status:Closed by LEDY GILMAN MD on 08/20/18 [facility] PROGRESSon 08-20-2018 Protein mass conc HNO ID: [id number] Author: Ledy Gilman Service: ? Author Type: [...] ABS GRAN CT + CBC (FOR REMOTE [facility] USE) - COMP METABOLIC PANEL - PROTEIN ELECTROPHORESIS W/INTERP - IMMUNOFIXATION SCREEN, SERUM - KAPPA/GERMAIN,FREE,SER - LUPUS ANTICOAG PL 2. 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 Will check labs and see me in follow up - ABS GRAN CT + CBC (FOR REMOTE [facility] USE) - COMP METABOLIC PANEL - PROTEIN ELECTROPHORESIS W/INTERP - IMMUNOFIXATION SCREEN, SERUM - KAPPA/GERMAIN,FREE,SER - LUPUS ANTICOAG PL Ledy Gilman MD Normal [facility] Vital Signs Date Time Vital Sign Value Performing Clinician Facility 05-28-2024 11:36-0500 Body height 157.[address] [facility] 05-28-2024 11:36-0500 Body mass index (BMI) [Ratio] 46.7 kg/m2 [facility] 05-28-2024 11:36-0500 Body weight 115.[address] [facility] 05-28-2024 11:36-0500 Diastolic blood pressure 77 mm[Hg] [facility] 05-28-2024 11:36-0500 Heart rate 77 /min [facility] 05-28-2024 11:36-0500 Respiratory rate 14 /min [facility] 05-28-2024 11:36-0500 SaO2% (BldA) [Mass fraction] 99 % [facility] 05-28-2024 11:36-0500 Systolic blood pressure 121 mm[Hg] [facility] 01-22-2024 10:09-0400 Body height 157.48 cm MD Anibal Chaudhary Work Phone: [facility] 01-22-2024 10:09-0400 Body mass index (BMI) [Ratio] 47.9 kg/m2 MD Anibal Chaudhary Work Phone: [facility] 01-22-2024 10:09-0400 Body weight 118.95 kg MD Anibal Chaudhary Work Phone: [facility] 01-22-2024 10:09-0400 Diastolic blood pressure 84 mm[Hg] MD Anibal Chaudhary Work Phone: [facility] 01-22-2024 10:09-0400 Heart rate 113 /min MD Anibal Chaudhary Work Phone: [facility] 01-22-2024 10:09-0400 SaO2% (BldA) [Mass fraction] 99 % MD Anibal Chaudhary Work Phone: [facility] 01-22-2024 10:09-0400 Systolic blood pressure 124 mm[Hg] MD Anibal Chaudhary Work Phone: [facility] 10-27-2023 13:42-0400 Body height 157.[address] [facility] 10-27-2023 13:42-0400 Body mass index (BMI) [Ratio] 49.1 kg/m2 [facility] 10-27-2023 13:42-0400 Body weight 122.[address] [facility] 10-27-2023 13:42-0400 Diastolic blood pressure 81 mm[Hg] [facility] 10-27-2023 13:42-0400 Heart rate 91 /min [facility] 10-27-2023 13:42-0400 Systolic blood pressure 144 mm[Hg] [facility] 08-19-2023 10:39-0400 Body height 157.48 cm MD Anibal Chaudhary Work Phone: [facility] 08-19-2023 10:39-0400 Body mass index (BMI) [Ratio] 48.4 kg/m2 MD Anibal Chaudhary Work Phone: [facility] 08-19-2023 10:39-0400 Body weight 120.2 kg MD Anibal Chaudhary Work Phone: [facility] 08-19-2023 10:39-0400 Diastolic blood pressure 80 mm[Hg] MD Anibal Chaudhary Work Phone: [facility] 08-19-2023 10:39-0400 Heart rate 73 /min MD Anibal Chaudhary Work Phone: [facility] 08-19-2023 10:39-0400 SaO2% (BldA) [Mass fraction] 98 % MD Anibal Chaudhary Work Phone: [facility] 08-19-2023 10:39-0400 Systolic blood pressure 150 mm[Hg] MD Anibal Chaudhary Work Phone: [facility] 05-08-2023 14:56-0500 Body height 157.48 cm MD Anibal Chaudhary Work Phone: [facility] 05-08-2023 14:56-0500 Body mass index (BMI) [Ratio] 42.6 kg/m2 MD Anibal Chaudhary Work Phone: [facility] 05-08-2023 14:56-0500 Body weight 105.74 kg MD Anibal Chaudhary Work Phone: [facility] 05-08-2023 14:56-0500 Diastolic blood pressure 85 mm[Hg] MD Anibal Chaudhary Work Phone: [facility] 05-08-2023 14:56-0500 Heart rate 85 /min MD Anibal Chaudhary Work Phone: [facility] 05-08-2023 14:56-0500 Systolic blood pressure 151 mm[Hg] MD Anibal Chaudhary Work Phone: [facility] 12-27-2022 14:45-0400 Body height 157.48 cm Anibal Chaudhary Other [facility] [employer] Other 12-27-2022 14:45-0400 Body mass index (BMI) [Ratio] 38.59 kg/m2 Anibal Chaudhary Other [facility] [employer] Other 12-27-2022 14:45-0400 Body weight 95.71 kg Anibal Chaudhary Other [employer] [facility] [employer] Other 12-27-2022 14:45-0400 Diastolic blood pressure 81 mm[Hg] Anibal Chaudhary Other [facility] [employer] Other 12-27-2022 14:45-0400 SaO2% (BldA) [Mass fraction] 99 % Anibal Chaudhary Other [employer] Other 12-27-2022 14:45-0400 Systolic blood pressure 116 mm[Hg] Anibal Chaudhary Other [facility] [employer] Other 12-24-2022 08:00-0400 Body temperature 98.2 [degF] MD Anibal Chaudhary Work Phone: [facility] 12-24-2022 08:00-0400 Diastolic blood pressure 78 mm[Hg] MD Anibal Chaudhary Work Phone: [facility] 12-24-2022 08:00-0400 Heart rate 93 /min MD Anibal Chaudhary Work Phone: [facility] 12-24-2022 08:00-0400 Respiratory rate 18 /min MD Anibal Chaudhary Work Phone: [facility] 12-24-2022 08:00-0400 SaO2% (BldA) [Mass fraction] 99 % MD Anibal Chaudhary Work Phone: [facility] 12-24-2022 08:00-0400 Systolic blood pressure 126 mm[Hg] MD Anibal Chaudhary Work Phone: [facility] 12-24-2022 02:42-0400 Body height 157.48 cm MD Anibal Chaudhary Work Phone: [facility] 12-24-2022 02:42-0400 Body weight 94.4 kg MD Anibal Chaudhary Work Phone: [facility] 11-15-2022 13:00-0400 Body height 157.48 cm Anibal Chaudhary Other [facility] [employer] Other 11-15-2022 13:00-0400 Body mass index (BMI) [Ratio] 39.69 kg/m2 Anibal Chaudhary Other [employer] [facility] [employer] Other 11-15-2022 13:00-0400 Body weight 98.43 kg Anibal Chaudhary Other [facility] [employer] Other 11-15-2022 13:00-0400 Diastolic blood pressure 78 mm[Hg] Anibal Chaudhary Other [employer] Other 11-15-2022 13:00-0400 Systolic blood pressure 140 mm[Hg] Anibal Chaudhary Other [employer] Other 09-12-2022 11:30-0400 Body height 157.48 cm Anibal Chaudhary Other [employer] Other 09-12-2022 11:30-0400 Body mass index (BMI) [Ratio] 39.14 kg/m2 Anibal Chaudhary Other [employer] Other 09-12-2022 11:30-0400 Body weight 97.07 kg Anibal Chaudhary Other [employer] Other 09-12-2022 11:30-0400 Diastolic blood pressure 85 mm[Hg] Anibal Chaudhary Other [employer] Other 09-12-2022 11:30-0400 Systolic blood pressure 157 mm[Hg] Anibal Chaudhary Other [employer] Other 04-29-2022 09:45-0500 Body height 157.48 cm Anibal Chaudhary Other [employer] Other 04-29-2022 09:45-0500 Body mass index (BMI) [Ratio] 47.55 kg/m2 Anibal Chaudhary Other [employer] Other 04-29-2022 09:45-0500 Body weight 117.94 kg Anibal Chaudhary Other [employer] Other 04-29-2022 09:45-0500 Diastolic blood pressure 88 mm[Hg] Anibal Chaudhary Other [facility] [employer] Other 04-29-2022 09:45-0500 SaO2% (BldA) [Mass fraction] 97 % Anibal Chaudhary Other [employer] Other 04-29-2022 09:45-0500 Systolic blood pressure 132 mm[Hg] Anibal Chaudhary Other [employer] [facility] [employer] Other 07-07-2020 07:58-0400 Body height 160.02 cm Anibal Chaudhary Work Phone: [facility] 07-07-2020 07:58-0400 Body weight 97.06 kg Anibal Chaudhary Work Phone: [facility] Encounters Encounter Date Encounter Type Care Provider Facility Start: 08-31-2024 End: 08-31-[address] [facility] Start: 08-04-2024 End: 08-04-2024 ambulatory [facility] Start: 07-21-2024 ambulatory [facility] Start: 07-21-2024 End: 07-21-2024 ambulatory [facility] Start: 06-29-2024 End: 06-29-[address] [facility] Start: 05-28-2024 End: 05-28-[address] [facility] Work Phone: Start: 05-28-2024 End: 05-28-2024 Patient encounter procedure [facility] Work Phone: Start: 05-26-2024 End: 05-26-2024 ambulatory [facility] Start: 05-20-2024 Non-patient / Non-visit [facility] Work Phone: Start: 05-20-2024 End: 05-20-2024 ambulatory DARRYL KENDALL [facility] Start: 05-17-2024 Non-patient / Non-visit [facility] Work Phone: Start: 05-12-2024 Evaluation and management of inpatient YASH PAGE [facility] Start: 05-12-2024 Non-patient / Non-visit [facility] Work Phone: Start: 05-11-2024 End: 05-14-2024 Evaluation and management of inpatient DARY AMARAL [facility] Start: 05-11-2024 End: 05-11-2024 Non-patient / Non-visit [facility] Work Phone: Start: 05-11-2024 Non-patient / Non-visit [facility] Work Phone: Start: 05-10-2024 Non-patient / Non-visit [facility] Work Phone: Start: 02-05-2024 End: 02-05-2024 [facility] Start: 01-22-2024 End: 01-22-2024 ambulatory MD Anibal Chaudhary Work Phone: [facility] Work Phone: Start: 01-22-2024 End: 01-22-2024 Patient encounter procedure MD Anibal Chaudhary Work Phone: [facility] Work Phone: Start: 01-21-2024 Non-patient / Non-visit MD Anibal Chaudhary Work Phone: [facility] Work Phone: Start: 01-08-2024 End: 01-08-2024 ambulatory AGUEDA ZUÑIGA [facility] Start: 01-08-2024 Non-patient / Non-visit MD Anibal Chaudhary Work Phone: [facility] [employer] Work Phone: Start: 12-30-2023 Evaluation and management of inpatient [facility] Start: 12-29-2023 Evaluation and management of inpatient [facility] Start: 12-29-2023 Evaluation and management of inpatient [facility] Start: 12-28-2023 Evaluation and management of inpatient RHONDA [facility] Start: 12-28-2023 Evaluation and management of inpatient RHONDA BARNES [facility] Start: 12-27-2023 Evaluation and management of inpatient [facility]EDA [facility] Start: 12-26-2023 Evaluation and management of inpatient AGUEDA [facility]ulw[facility] Start: 12-26-2023 Evaluation and management of inpatient AGUEDA Miramontes [facility] Start: 12-25-2023 Evaluation and management of inpatient [facility] Start: 12-25-2023 Evaluation and management of inpatient AGUEDA [facility]ulwinder [facility] Start: 12-24-2023 [facility] Start: 12-23-2023 Evaluation and management of inpatient [facility] Start: 12-22-2023 Evaluation and management of inpatient [facility] Start: 12-21-2023 Evaluation and management of inpatient [facility] Start: 12-19-2023 Evaluation and management of inpatient [facility]EDA [facility] Start: 12-18-2023 Evaluation and management of inpatient [facility] Start: 12-18-2023 Evaluation and management of inpatient [facility] Start: 12-17-2023 Evaluation and management of inpatient [facility] Start: 12-16-2023 Evaluation and management of inpatient [facility] Start: 12-16-2023 Evaluation and management of inpatient [facility] Start: 12-15-2023 Evaluation and management of inpatient [facility] Start: 12-15-2023 Evaluation and management of inpatient [facility] Start: 12-15-2023 Evaluation and management of inpatient [facility] Start: 12-11-2023 Evaluation and management of inpatient [facility] Start: 12-11-2023 Evaluation and management of inpatient [facility] Start: 12-10-2023 Evaluation and management of inpatient JOSÉ MIGUEL MURRIETA [facility] Start: 12-08-2023 Evaluation and management of inpatient AGUEDA Miramontes [facility] Start: 12-08-2023 End: 12-08-2023 [facility] Start: 12-08-2023 Evaluation and management of inpatient UMAIR [facility] Start: 12-06-2023 Evaluation and management of inpatient AGUEDA Miramontes [facility] Start: 12-06-2023 Evaluation and management of inpatient AGUEDA Miramontes [facility] Start: 12-05-2023 [facility] Start: 12-05-2023 End: 12-30-2023 Evaluation and management of inpatient ALAN [facility] Start: 12-04-2023 End: 12-04-2023 Patient encounter procedure MD Anibal Chaudhary Work Phone: [facility] [place] Work Phone: Start: 12-04-2023 End: 12-04-2023 ambulatory MD Anibal Chaudhary Work Phone: [facility] Work Phone: Start: 12-03-2023 End: 12-03-2023 ambulatory GALE ALARCON [facility] Start: 12-02-2023 End: 12-02-2023 Departed Referred MD Anibal Chaudhary Work Phone: [facility] [place] Work Phone: Start: 12-02-2023 End: 12-02-2023 Patient encounter procedure MD Anibal Chaudhary Work Phone: [facility] [place] Work Phone: Start: 12-02-2023 End: 12-02-2023 ambulatory MD Anibal Chaudhary Work Phone: [facility] Work Phone: Start: 11-03-2023 End: 11-03-2023 Patient encounter procedure MD Anibal Chaudhary Work Phone: [facility] [place] Work Phone: Start: 11-03-2023 End: 11-03-2023 ambulatory MD Anibal Chaudhary Work Phone: [facility] Work Phone: Start: 10-27-2023 End: 10-27-[address] [facility] Work Phone: Start: 10-27-2023 End: 10-27-2023 Patient encounter procedure [facility] Work Phone: Start: 09-07-2023 Non-patient / Non-visit [facility] Work Phone: Start: 08-19-2023 End: 08-19-2023 ambulatory MD Anibal Chaudhary Work Phone: [facility] Work Phone: Start: 08-19-2023 End: 08-19-2023 Patient encounter procedure MD Anibal Chaudhary Work Phone: [facility] Work Phone: Start: 07-10-2023 Non-patient / Non-visit MD Anibal Chaudhary Work Phone: [facility] Work Phone: Start: 07-08-2023 End: 07-08-2023 Patient encounter procedure MD Anibal Chaudhary Work Phone: [facility] Start: 07-08-2023 End: 07-08-2023 ambulatory MD Anibal Chaudhary Work Phone: [facility] Work Phone: Start: 06-04-2023 End: 06-04-2023 ambulatory JOSH POCOS Not Available Start: 05-29-2023 End: 08-27-2023 ambulatory Josh Pocos [place] Start: 05-29-2023 End: 08-27-2023 Recurring Yany Jc Pocbernardo [facility] Start: 05-29-2023 End: 05-29-2023 ambulatory ANIBAL CHAUDHARY Facility[place] Start: 05-29-2023 End: 05-29-2023 Patient encounter procedure Yany Jc Pocos [facility] Start: 05-16-2023 End: 05-16-2023 ambulatory JOSH POCOS Not Available Start: 05-08-2023 End: 05-08-2023 ambulatory MD Anibal Chaudhary Work Phone: [facility] Work Phone: Start: 05-08-2023 End: 05-08-2023 Patient encounter procedure MD Anibal Chaudhary Work Phone: [facility] Work Phone: Start: 02-25-2023 End: 02-25-2023 Departed Referred MD Anibal Chaudhary Work Phone: [facility] Work Phone: Start: 02-25-2023 End: 02-25-2023 ambulatory MD Anibal Chaudhary Work Phone: [facility] Work Phone: Start: 02-11-2023 End: 02-11-2023 ambulatory Anibal Chaudhary Other [employer] Other Start: 02-11-2023 Telephone encounter Anibal Chaudhary [facility] Start: 12-27-2022 End: 12-27-2022 ambulatory Anibal Chaudhary Other [employer] Other Start: 12-27-2022 Office outpatient visit 25 minutes Anibal Chaudhary [facility] Start: 12-25-2022 End: 12-25-2022 ambulatory Anibal Chaudhary Other [employer] Other Start: 12-25-2022 Telephone encounter Anibal Chaudhary [facility] Start: 12-24-2022 End: 12-24-2022 Evaluation and management of inpatient MD Anibal Chaudhary Work Phone: [facility] Work Phone: Start: 12-24-2022 End: 12-24-2022 observation encounter MD Anibal Chaudhary Work Phone: [facility] Work Phone: Start: 12-24-2022 End: 12-24-2022 ambulatory Petr Kowalski Facility:[facility] Start: 12-20-2022 End: 12-20-2022 ambulatory Anibal Chaudhary Other [employer] Other Start: 12-20-2022 Telephone encounter Anibal Chaudhary [facility] Start: 11-15-2022 End: 11-15-2022 ambulatory Anibal Chaudhary Other [employer] Other Start: 11-15-2022 Office outpatient visit 15 minutes Anibal Chaudhary [facility] Start: 09-12-2022 End: 09-12-2022 ambulatory Anibal Chaudhary Other [employer] Other Start: 09-12-2022 Office outpatient visit 25 minutes Anibal Chaudhary [facility] Start: 09-12-2022 Telephone encounter Anibal Chaudhary [facility] Start: 07-04-2022 End: 07-04-2022 ambulatory Ainbal Chaudhary Other [employer] Other Start: 07-04-2022 Telephone encounter Anibal Chaudhary [facility] Start: 06-18-2022 End: 06-18-2022 ambulatory Virgilio Mckeon Other [employer] Other Start: 06-18-2022 Telephone encounter Virgilio Mkceon [facility] Start: 05-30-2022 End: 05-30-2022 ambulatory Anibal Chaparro Other [employer] Other Start: 05-30-2022 Telephone encounter Anibal Chaudhary [facility] Start: 05-27-2022 End: 05-28-[address] DOCTOR ANTHONY Facility:[facility] Start: 04-29-2022 End: 04-29-2022 ambulatory Anibal Chaudhary Other [employer] Other Start: 04-29-2022 Office outpatient visit 15 minutes Anibal Chaudhary [facility] Start: 04-29-2022 Telephone encounter Anibal Chaudhary [facility] Start: 02-11-2022 ambulatory Facility:[id number] Start: 02-11-2022 End: 02-11-2022 Patient encounter procedure Yany Amezcua [facility] Start: 01-07-2022 End: 01-26-2022 Pre-admission assessment Yany Amezcua [facility] Start: 11-20-2021 Adult health examination Anibal Chaparro Other [employer] Other Start: 11-20-2021 Encounter for genera l adult medical examination without abnormal findings DR DOCTOR VERAS [facility] Start: 11-19-2021 End: 11-20-2021 ambulatory ANIBAL CHAUDHARY Facility:[facility] Start: 11-19-2021 End: 11-20-2021 Encounter for general adult medical examination without abnormal findings DR DOCTOR VERAS Facility:[facility] Start: 07-18-2021 End: 07-19-[address] DOCTOR VERAS Facility:[facility] Start: 07-07-2020 End: 07-07-2020 Patient encounter procedure Anibal Chaparro Work Phone: [facility] [place] Procedures Date Procedure Procedure Detail Performing Clinician Start: 08-31-2024 Follow-up visit ALAN PATEL Start: 08-04-2024 Follow-up visit ALAN PATEL Start: 06-29-2024 Follow-up visit ALAN PATEL Start: 05-26-2024 Follow-up visit ALAN PATEL Start: 05-20-2024 Follow-up visit ALANISHAN PATEL Start: 02-05-2024 Follow-up visit ALANISHAN PATEL Start: 01-08-2024 Follow-up visit ALAN PATEL Start: 12-03-2023 Follow-up visit ALAN PATEL Start: 07-07-2020 MRI of head Anibal [facility] Work Phone: Plan of Treatment Date Care Activity Detail Author Start: 12-03-2023 [facility] Start: 11-03-2023 [facility] Start: 07-08-2023 [facility] Start: 12-24-2022 [facility] Start: 12-24-2022 Hospital admission [facility] Start: 12-24-2022 [facility] Start: 12-24-2022 Sleep disorder assessment [facility] 25-hydroxyvitamin D2 [Mass/volume] in Serum or Plasma [facility] 25-hydroxyvitamin D3 [Mass/volume] in Serum or Plasma [facility] 25-Hydroxyvitamin D3+25-Hydroxyvitamin D2 [Mass/volume] in Serum or Plasma [facility] Comprehensive metabo lic 2000 panel - Serum or Plasma [facility] Glucose measurement estimated from glycated hemoglobin [facility] Patient referral [facility] Work Phone: Thyrotropin [Units/v olume] in Serum or Plasma [facility] Thyroxine (T4) free index in Serum or Plasma by calculation [facility] Thyroxine measurement [facility] Triiodothyronine (T3 ) [Mass/volume] in Serum or Plasma [facility] Triiodothyronine res in uptake (T3RU) in Serum or Plasma [facility] Payers Date Payer Category Payer Medicaid [id number] 2022 Self-pay [id number] 1960 Unknown [id number] 2.16. [id number] 1961 Unknown [id number] 2.16.84 0.1.746099.3.579.2.593 1961 Unknown [id number] 2.16.84 0.1.630223.3.579.2.593 1961 Unknown [id number] 2.16.84 0.1.668223.3.579.2.593 1961 Unknown [id number] 2.16.84 0.1.787346.3.579.2.593 1961 Unknown [id number] 2.16.84 0.1.148773.3.579.2.1259 1961 Unknown [id number] 2.16.84 0.1.782228.3.579.2.1259 1961 Unknown [id number] 2.16.84 0.1.614852.3.579.2.1259 1961 Unknown [id number] 2.16.84 0.1.081888.3.579.2.1259 1961 Unknown [id number] 2.16.8 40.1.535703.3.579.2.727 1961 Unknown [id number] 2.16.8 40.1.090796.3.579.2.727 1959 Unknown [id number] Private Health Insurance [id number] Unknown [id number] Unknown [id number] 2.16.8 40.1.106960.3.579.2.531 Unknown [id number] 2.16.8 40.1.741750.3.579.2.531 Unknown [id number] 2.16.8 40.1.977964.3.579.2.531 Unknown [id number] 2.16.8 40.1.123508.3.579.2.531 Unknown [id number] 2.16.8 40.1.342057.3.579.2.531 Unknown [id number] 2.16.8 40.1.635457.3.579.2.531 Unknown [id number] 2.16.8 40.1.850893.3.579.2.531 Social History Date Type Detail Facility Tobacco smoking stat [facility] Unknown if ever smoked [facility] Start: 1960 Sex Assigned At Female F [facility] Tobacco smoking status No Smokin g Status Entered [facility] Sex Assigned At Female [facility] Start: 12-24-2022 End: 12-24-2022 Tobacco smoking status NYIS Current some day smoker [facility] Start: 12-27-2022 End: 12-27-2022 Tobacco smoking status NHIS Smoker (finding) [facility] Start: 05-28-2024 Sex Female (finding) [facility] Goals Date Patient Goal Desired Activity /State Functional Status Date Assessment Result Facility 12-24-2022 Functional status Patient at Baseline [facility] Work Phone: Mental Status Date Assessment Result Facility 12-24-2022 Cognitive function Cognitive Sta tus Patient at Baseline [facility] Work Phone: Clinical Notes 04-29-2022 to 08-31-2024 Note Date & Type Note Facility 08-31-2024 Note [facility] 08-04-2024 Note [facility] 06-29-2024 Note [facility] 05-26-2024 Note [facility] 05-26-2024 Note [facility] 05-20-2024 Note [facility] 05-20-2024 Note [facility] 05-14-2024 Note Attempted to delete note. Left incomplete. [facility] 05-13-2024 Note [facility] 05-13-2024 Note [facility] 05-12-2024 Note [facility] 05-12-2024 Note [facility] 05-12-2024 Note Case was discussed w ith the ADEBAYO on 05/11/2024. I agree with the history, physical, assessment, and plan of care. I discussed the findings and therapeutic plan. I agree with the documentation, except for any updates below. Rao Foster MD [facility] 05-12-2024 Note [facility] 05-12-2024 Note Insulin lispro per s liding scale before meals and at bedtime. Continue home medication Januvia 100 mg p.o. daily [facility] 05-12-2024 Note Continue diuresis as above Supplemental O2 at 2-4 L/min via nasal cannula as needed [facility] 05-12-2024 Note Continue with home m edication, levothyroxine 50 mcg tablet p.o. daily [facility] 05-12-2024 Note Per primary team to consider addition of CPAP/BiPAP nightly [facility] 02-05-2024 Note [facility] 01-08-2024 Note [facility] 12-30-2023 Note [facility] 12-30-2023 Note [facility] 12-30-2023 Note Occupational Therapy Name: Ruma Carlton Date of : 1960 Today's Date: 12/30/23 Pt is unable to be seen for therapy at this time secondary to Discharging @ 1530. Check No Charge Time attempted: 1325 [facility] 12-30-2023 Note [facility] 12-30-2023 Note [facility] 12-29-2023 Note [facility] 12-29-2023 Note [facility] 12-29-2023 Note [facility] 12-29-2023 Note [facility] 12-29-2023 Note [facility] 12-29-2023 Note Addendum created 10/14 0920 by Mario Bermudez MD Attestation recorded in Intraprocedure (Anesthesia), Intraprocedure Attestations filed (Anesthesia), Intraprocedure Event edited, Intraprocedure Staff edited, Intraprocedure Staff edited (Anesthesia) [facility] 12-29-2023 Note [facility] 12-28-2023 Note [facility] 12-28-2023 Note CTS: Patient seen and examined post left pigtail catheter removal I concur with the xray report and do not see any pneumothorax. Lungs CTA bilaterally Dressing dry and intact Satting 98% on room air Updated daughter at bedside. [facility] 12-28-2023 Note Sent updates to [facility]. They have pre-cert which is good through Friday 12/29. Awaiting medical readiness. [facility] 12-28-2023 Note [facility] 12-28-2023 Note [facility] 12-27-2023 Note [facility] 12-27-2023 Note [facility] 12-27-2023 Note [facility] 12-27-2023 Note [facility] 12-26-2023 Note [facility] 12-26-2023 Note [facility] 12-26-2023 Note Updates sent to [facility]. Patient still has chest tube in place. Awaiting Pulmonary to see patient today. SW continues to follow. [facility] 12-26-2023 Note [facility] 12-26-2023 Note [facility] 12-26-2023 Note [facility] 12-25-2023 Note [facility] 12-25-2023 Note [facility] 12-25-2023 Note [facility] 12-25-2023 Note [facility] 12-25-2023 Note [facility] 12-25-2023 Note [facility] 12-25-2023 Note [facility] 12-24-2023 Note [facility] 12-24-2023 Note [facility] 12-24-2023 Note Awaiting precert for [facility]. Per CT Surgery patient should be medically ready for discharge on 12/24. SW following. [facility] 12-24-2023 Note A. Satisfactory for evaluation. Examination of the ThinPrep slide and cell block reveals reactive mesothelial cells in a background of marked acute inflammation. [facility] Comment on above: Performed By: #### L AB13 ####[facility] [place] [address] 12-24-2023 Note [facility] 12-24-2023 Note [facility] 12-24-2023 Note [facility] 12-24-2023 Note [facility] 12-23-2023 Note [facility] 12-23-2023 Note [facility] 12-23-2023 Note [facility] 12-23-2023 Note [facility] 12-22-2023 Note [facility] 12-22-2023 Note [facility] 12-22-2023 Note [facility] 12-22-2023 Note [facility] 12-22-2023 Note [facility] 12-22-2023 Note [facility] 12-21-2023 Note [facility] 12-20-2023 Note [facility] 12-20-2023 Note [facility] 12-20-2023 Note [facility] 12-19-2023 Note [facility] 12-19-2023 Note [facility] 12-19-2023 Note [facility] 12-19-2023 Note [facility] 12-19-2023 Note [facility] 12-18-2023 Note [facility] 12-18-2023 Note [facility] 12-18-2023 Note [facility] 12-18-2023 Note Occupational Therapy Name: Ruma Carlton Date of : 1960 Today's Date: 12/18/23 Pt is unable to be seen for therapy at this time secondary to Pt currently off floor for testing Check No Charge Time attempted: 1407 [facility] 12-18-2023 Note [facility] 12-18-2023 Note Echo attempted bedsi de @10:45 am. Patient in chair, called RN but busy, unable to get patient back in bed for test. Will try again later. [facility] 12-18-2023 Note [facility] 12-18-2023 Note [facility] 12-17-2023 Note [facility] 12-17-2023 Note [facility] 12-17-2023 Note [facility] 12-17-2023 Note [facility] 12-16-2023 Note [facility] 12-16-2023 Note [facility] 12-16-2023 Note [facility] 12-15-2023 Note [facility] 12-15-2023 Note [facility] 12-15-2023 Note [facility] 12-15-2023 Note [facility] 12-15-2023 Note [facility] 12-14-2023 Note [facility] 12-13-2023 Note [facility] 12-13-2023 Note [facility] 12-12-2023 Note [facility] 12-12-2023 Note [facility] 12-12-2023 Note [facility] 12-12-2023 Note [facility] 12-11-2023 Note [facility] 12-11-2023 Note [facility] 12-11-2023 Note [facility] 12-10-2023 Note [facility] 12-10-2023 Note [facility] 12-10-2023 Note [facility] 12-10-2023 Note [facility] 12-09-2023 Note [facility] 12-09-2023 Note [facility] 12-09-2023 Note [facility] 12-09-2023 Note [facility] 12-08-2023 Note [facility] 12-08-2023 Note [facility] 12-08-2023 Note [facility] 12-08-2023 Note [facility] 12-08-2023 Note [facility] 12-08-2023 Note [facility] 12-07-2023 Note [facility] 12-07-2023 Note [facility] 12-07-2023 Note [facility] 12-06-2023 Note [facility] 12-06-2023 Note Case was discussed w ith the ADEBAYO on 12/05/2023. I agree with the history, physical, assessment, and plan of care. I discussed the findings and therapeutic plan. I agree with the documentation, except for any updates below. Gregory Wright MD [facility] 12-04-2023 Note Chest tightness and LOPEZ will plan for cardiac cath in light of severe coronary calcifications noted, DM, HTN, HPL, abnormal ECG [facility] 12-04-2023 Note Diabetes is managed by PCP [facility] 12-04-2023 Note [facility] 12-04-2023 Note Managed per PCP Recommended weight loss [facility] 12-03-2023 Note [facility] 12-03-2023 Note [facility] 02-11-2023 Evaluation note Encounter Date Diagnosis Assessment Notes Jan, Acute pain of right hip (ICD-10 - M25.551) [facility] [employer] Other 10-06-2023 Evaluation note* Encounter Date Diagnosis [...] monitor results and followup in 3-4 weeks. [employer] Other 10-04-2023 Evaluation note* Encounter Date Diagnosis Assessment Notes Treatment Notes Treatment Clinical Notes Dec, Depressive disorder (ICD-10 - F32.A) [employer] Other 10-03-2023 History and physical note Author Froilan Brown [facility] December 24, 2022 4:06am Note Date/Time December 24, 2022 3: 58am [facility] [address] [place] [address] Hospitalist H&P Signed Patient: Ruma Carlton MR#: [id number] : 1960 Acct:[id number] Age/Sex: 62 / F Adm Date: 3 Loc: Room: [address] [place] [address] Type: ADM IN Attending Dr: Froilan Brown MD Copies to: MD Anibal Mosquera MD~ HPI DATE OF EXAMINATION: 12/24/22 CHIEF COMPLAINT: fall HISTORY OF PRESENT ILLNESS: The patient is a 62 year old woman with a history of HTN, DVT/PE on xarelto, POTS, NIDDM2, paroxysmal SVT who presented to [facility] ED after a fall. Per the patient [...] from sleeping to walk to [facility] and fell- pt reports she felt wobbly after taking the flexeril. shedid not lose consciousness or feel dizzy and denies any chest pain or shortness of breath. Pt's right hip pain worsened over the course of Friday so she went to [facility] for evaluation on arrival there vital [...] feels improved after she got tylenol at [facility]- the patient is somewhat irritated at being [...] were negative except as noted in the HPI [facility] Medical History Apnea Arthritis Back pain [...] thrombosis): (5) Hyponatremia: Plan: mild (126 at [facility])- ?medication related Plan - admit to medicine - monitor on telemetry - restart home medications - will check STAT troponin now. if it is markedly increased compared to at [facility], would ask cardiology to see pt. if [...] <Electronically signed by Froilan Brown MD> 12/24/22 0406 [facility] Work Phone: [phone] 138-405309-29-2023 Evaluation note* Encounter Date Diagnosis Assessment Notes Treatment Notes Treatment Clinical Notes Nov, Depressive disorder (ICD-10 - F32.A) [employer] Other 08-25-2023 Evaluation note* Encounter Date Diagnosis Assessment Notes Treatment Notes Treatment Clinical Notes Oct, Depressive disorder (ICD-10 - F32.A) Mood improved. 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 She hasn't rec'd the midodrine yet, but will start it and followup w [facility] cardio [employer] Other 06-22-2023 Evaluation note* Encounter Date Diagnosis [...] the past (years ago). Requests a refill. [employer] Other 02-06-2023 Evaluation note* Encounter Date Diagnosis [...] ENT eval if area does not resolve. 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 [employer] Other Evaluation note* Diagnosis Onset Date Resolution Status Elevated troponin acute Fall acute Hyponatremia acute Personal history of DVT (deep vein thrombosis) acute Right hip pain acute [facility] Work Phone: Evaluation noteNo assessment information available [facility] Work Phone: Evaluation note* Diagnosis Onset Date Resolution Status Anxiety acute Bilateral primary osteoarthritis of knee acute Depression acute Right hip pain acute [facility] Work Phone: Evaluation note* Diagnosis Onset Date Resolution Status Abnormal TSH acute Arthritis, rheumatoid acute Lower extremity edema acute Urinary frequency acute [facility] Work Phone: Evaluation note* Diagnosis Onset Date Resolution Status Abnormal TSH acute Arthritis, rheumatoid acute Lower extremity edema acute Urinary frequency acute Abnormal TSH acute Diabetes mellitus, type 2 ac [place] Hypertension acute [facility] Work Phone: Evaluation note* Diagnosis Onset Date Resolution Status Abnormal TSH acute Arthritis, rheumatoid acute Lower extremity edema acute Urinary frequency acute Abnormal TSH acute Arthritis, rheumatoid acute Diabetes mellitus, type 2 ac [place] Hypertension acute [facility] Work Phone: Evaluation note* Diagnosis Onset Date Resolution Status Abnormal TSH acute Arthritis, rheumatoid acute Diabetes mellitus, type 2 ac [place] Hypertension acute [facility] Work Phone: Hishpia general Narrative - Reported* Type Description Date [...] rele ase 02/2022 Hospitalization History see above [facility] [employer] Other History general Narrative - Reported* Type [...] Surgical History right hand trigger fingers rele [facility] 02/2022 Hospitalization History see above [employer] [facility] [employer] Other Hospital Discharge instructions No data available for this section [facility] No data available for this section [facility] Author Petr Kowals[facility] December 24, 2022 11:58am Note Date/Time December 24, 2022 11 :58am [facility] [address] [place] [address] Hospitalist Progress Note Signed Patient: Ruma Carlton MR#: [id number] : 1960 Acct:[id number] Age/Sex: 62 / F Adm Date: 3 Loc: Room: [address] [place] [address] Type: ADM INOo Attending Dr: Petr Kowalski MD Copies to: ~ Date of Service: 12/24/2022 Subjective Subjective Narrative: The patient is a 62 year old woman with a history of HTN, DVT/PE on xarelto, POTS, NIDDM2, paroxysmal SVT who presented to [facility] ED after a fall. Per the patient [...] from sleeping to walk to [facility] and fell- pt reports she felt wobbly after taking the flexeril. shedid not lose consciousness or feel dizzy and denies any chest pain or shortness of breath. Pt's right hip pain worsened over the course of Friday so she went to [facility] for evaluation On arrival there vital [...] feels improved after she got Tyl[facility]ol at [facility]- the patient is somewhat irritated at being [...] to the fall. Her CT head at [facility] was unremarkable for ICH patient remained stable [...] Dose Route Start Last Admin Trade Name Jhony PRN Reason Stop Dose Admin Acetaminophen 650 [...] 08:59 50 mg DAILY SANAZ Administration Pyridostigmine Lamar 120 mg 12/24/22 09:00 12/24/22 08:36 Pyridostigmine Lamar 60 Mg Tablet PO 12/24/23 08:59 120 [...] thrombosis): (5) Hyponatremia: Plan: mild (126 at [facility])- ?medication related Plan -Repeat Troponin here WNL. Sodium level WNL -CT head done at [facility] with no evidence of intracranial bleed. Patient remained stable with no focal deficits -X-ray of the hip done at [facility] with no evidence of fracture dislocation -Patient [...] signed by Petr Kowalski MD> 12/24/22 1158 [facility] Work Phone: Summary Purpose Family [...] R06.9 Amb Documentation CC Adult Risk Stratification [facility]:CABG-HIGH RISK Reason for Visit Abnormal TSH Arthritis, rheumatoid Diabetes mellitus, type 2 Hypertension Chief Complaint Admit Date Amb Documentation May 17, 2024 1:57pm [facility]; heart failure-HIGH RISK May 28, 2024 11:25am Additional Source Comments INFORMATION SOURCE (unrecogn ized section and content) DATE CREATED AUTHOR 08/29/2018 [facility] DATE CREATED AUTHOR AUTHOR'S ORGANIZ ATION 03/20/2022 [facility] DATE CREATED AUTHOR AUTHOR'S ORGANIZ ATION 05/29/2022 [facility] DATE CREATED AUTHOR AUTHOR'S ORGANIZ ATION 06/05/2023 [facility] DATE CREATED AUTHOR AUTHOR'S ORGANIZ ATION 08/29/2023 [facility] DATE CREATED AUTHOR AUTHOR'S ORGANIZ ATION 12/16/2023 [facility] DATE CREATED AUTHOR AUTHOR'S ORGANIZ ATION 10/19/2024 [facility] Patient Care team informatio n (unrecognized [...] BE BASED ON THE PRIMARY CLINICAL RECORDS. [employer] provides no warranty or guarantee of the accuracy or completeness of information in this document.
[2024-11-26] MEDS: ALBUTEROL SULFATE 2.5 MG/3 ML VIAL NEB IH (13:27)
== END 2024-11-26 12:13 | disposition home or self-care (01) ==
LOC: CARD 12:13
PROVIDERS: PCP Family Medicine; Visit Provider Internal Medicine Interventional Cardiology
DX: R06.09 Other forms of dyspnea (principal); Z95.1 Presence of aortocoronary bypass graft; E66.9 Obesity, unspecified; Z68.42 Body mass index [BMI] 45.0-49.9, adult; I25.10 Atherosclerotic heart disease of native coronary artery without angina pectoris; E78.2 Mixed hyperlipidemia
CPT/HCPCS: 93798; 94060; 94726; 94729

== ENCOUNTER 2024-12-22 12:53 | Outpatient (RCR) | payer OTHER, SELFPAY | END 2025-01-12 07:24 | disposition home or self-care (01) | LOC: CR 12:53 | PROVIDERS: PCP Family Medicine; Visit Provider Internal Medicine Interventional Cardiology | DX: I25.10 Atherosclerotic heart disease of native coronary artery without angina pectoris (principal); Z95.1 Presence of aortocoronary bypass graft; I50.9 Heart failure, unspecified; E11.9 Type 2 diabetes mellitus without complications; E66.9 Obesity, unspecified; I11.0 Hypertensive heart disease with heart failure | CPT/HCPCS: 93798 ==

== ENCOUNTER 2024-12-29 12:21 | Outpatient (OUT) | payer OTHER, SELFPAY ==
--- OUTSIDE RECORDS SUMMARY | 2024-12-22 11:47 | XMS_ITS | Continuity of Care Document ---
Author Organization [facility] Address [address] [place] [address] Phone Care Team Providers Care Cattle Dehorner Name Role Phone Merissa Mayfield MD Primary Care Provider Lyndsey Pedraza Attending Provider Merissa Mayfield MD Attending Provider [phone] Demetris Santacruz Attending Provider Care Teams Patient Care Team Team Status: Active Member Role Status Dates Merissa Mayfield MD Primary Care Provider Active Visit Care Team Team Status: Active Member Role Status Elodia Mayfield MD Primary Care Provider Active Start: October 12, 2024 NIRANJAN Bass Attending Provider Active Start: October 12, 2024 Visit Care Team Team Status: Inactive Member Role Status Dates Merissa Mayfield MD Primary Care Provider Active Start: December 21, 2024 End: December 21, 2024 Merissa Mayfield MD Attending Provider Active St art: December 21, 2024 End: December 21, 2024 Patient Care Team Team Status: Inactive Member Role Status Dates Merissa Mayfield MD Primary Care Provider Active Start: December 22, 2024 End: December 22, 2024 Ramy Santacruz MD Attending Provider Active Start : December 22, 2024 End: December 22, 2024 Chief Complaint and Reason for Visit Chief Complaint Admit Date Wellness-HIGH RISK December 21, 2024 11:25am ckd 3 December 22, 2024 3: 21pm Reason for Visit Admit Date Abnormal TSH December 21, 2024 11:25am COPD (chronic obstructive pulmonary dise ase) December 21, 2024 11:25am Dyspnea on exertion December 21, 2024 11:25am Screening mammogram for breast cancer Se pt2024 11:25am CAD (coronary artery disease) December 3:21pm Reason for Referral Referring Provider Name Referring Provider Address Referring Provider Phone Referral Date Requested Appointment Date Referral Reason November J44.9 - Chronic obstructive pulmonary disease, unspecified,R06 .09 - Other forms of dyspnea Allergies, Adverse Reactions, Alerts Allergen Type Severity Reaction Last Updated Verified Status codeine Allergy Unknown Hives December 22, 2024 3:28pm Yes Active metoclopramide Allergy Unknown Hives December 3:28pm Yes Active Sulfa (Sulfonamide Antibiotics) Allergy Unknown Hives, rash December 22, 2024 3:28pm Yes Active sulfamethoxazole Allergy Unknown Hives December 22, 2024 3:28pm Yes Active trimethoprim Allergy Unknown Hives December 22, 2024 3:28pm Yes Active Social History Smoking Status Status Start Date End Date Date of Observa tion Ex-smoker (finding) December 22, 2024 3:32pm Observation Status Observation Response Date of Response Legal Sex Female (finding) Sex Assigned At Female October Family History Relationship Condition Age at Onset Recorded Date/T karie mother Malignant neoplasm of breast Unknown Cerebrovascular accident (CVA) Unknown father Diabetes mellitus Unknown father Unknown Hypertension Unknown Chronic kidney disease Unknown family member Unknown mother Malignant neoplasm Unknown History of stroke Unknown Unknown Hypertension Unknown Problems Active Problems Medical Problem Onset Date Status Personal history of DVT (deep vein thrombosis) U nknown Active Arthritis, rheumatoid Unknown Active Lower extremity edema Unknown Active 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 Unknown Active Screening mammogram for breast cancer Unknown Active Bilateral primary osteoarthritis of knee Unknown Active Secondary hyperparathyroidism Unknown Ac tive Dyspnea on exertion Unknown Active Urinary frequency Unknown Active Diabetes mellitus, type 2 Unknown Active CKD (chronic kidney disease) stage 3, GFR 30-59 ml/min Unknown Active CAD (coronary artery disease) Unknown Ac tive Anxiety Unknown Active Hypertensive chronic kidney disease with stage 1 through stage 4 chronic kidney disease, or unspecified chronic kidney disease Unknown Active Depression Unknown Active Hyponatremia Unknown Active Elevated troponin Unknown Active Abnormal TSH Unknown Active COPD (chronic obstructive pulmonary disease) Unk nown Active Right hip pain Unknown Active Hypertension Unknown Active Fall Unknown Active Medications Medication Status Dose Units Route Directions Qty Days St art Date Stop Date End Date Instructions Adherence Trazodone 50 mg tablet Discont inued 50 MG PO Daily at bedtime June 02, 2023 1:13pm August 19, 2023 10:46 am Buspirone 10 mg tablet Discont inued 10 MG PO Twice daily 60 June 03, 2023 10:41a m August 19, 2023 10:45 am Cholecalcif mele (Vitamin D3) 1,250 mcg (50,000 unit) capsule Discont inued 1250 MCG PO every week 13 July 18, 2023 12:00a m October 06, 2023 10:00 am Rivaroxaban (Xarelto) 20 mg tablet Discont inued 20 MG PO Daily July 25, 2023 9:06am October 22, 2023 8:35a m Levothyroxi ne 50 mcg tablet Discont inued 50 MCG PO Daily August 20, 2023 12:00a m September 15, 2023 4:40p m Sitagliptin Phosphate (Januvia) 100 mg tablet Discont inued 0 .ROUTE .COMPLEX September 09, 2023 9:11am [facility] 2023 9:46a m TAKE 1 TABLET BY MOUTH DAILY Levothyroxi ne 50 mcg tablet Discont inued 50 MCG PO Daily September 15, 2023 4:40pm Augus t 2023 4:21p m Cholecalcif mele (Vitamin D3) 1,250 mcg (50,000 unit) capsule Discont inued 0 .ROUTE .COMPLEX October 06, 2023 10:00a m May 28, 2024 12:42 pm TAKE 1 CAPSULE BY MOUTH ONCE A WEEK Rivaroxaban (Xarelto) 20 mg tablet Discont inued 0 .ROUTE .COMPLEX October 22, 2023 8:35am [facility] 2024 11:54 am TAKE 1 TABLET BY MOUTH ONCE DAILY Sitagliptin Phosphate (Januvia) 100 mg tablet Discont inued 0 .ROUTE .COMPLEX 90 2023 9:46am May 28, 2024 12:41 pm TAKE 1 TABLET BY MOUTH DAILY Levothyroxi ne 50 mcg tablet Discont inued 50 MCG PO Daily 2024 5:40pm July 21, 2024 11:51 am Levothyroxi ne 50 mcg tablet Discont inued 50 MCG PO Daily July 21, 2024 11:51a m October 18, 2024 3:24p m Amiodarone 200 mg tablet Discont inued 200 MG PO Daily September 03, 2024 12:00a m Septe [facility] 2024 11:31 am Clopidogrel (Plavix) 75 mg tablet Active 75 MG PO Daily September 03, 2024 12:00a m Complies with drug therapy Levothyroxi ne 50 mcg tablet Active 50 MCG PO Daily October 18, 2024 3:24pm Complies with drug therapy Rivaroxaban (Xarelto) 20 mg tablet Discont inued 20 MG Octobe r 2022 12:00a m July 25, 2023 9:07a m Tramadol 50 mg tablet Discont inued 50 MG PO Q8H Octobe r 2022 12:00a m Febru josé luis2023 4:10p m Ketorolac 0.5 % drops Discont inued 1 DROPS EYE-RI GHT Four times daily Octobe r 2022 12:00a m Febru josé luis2023 4:08p m Pyridostigm ine Howard 180 mg Tablet Extended Release Discont inued 120 MG PO Daily Octobe r 2022 12:00a m Octob er 2022 8:13a m Sitagliptin Phosphate (Januvia) 100 mg tablet Discont inued 100 MG PO Daily Octobe r 2022 12:00a m September 09, 2023 9:11a m Acetaminoph en 500 mg Tablet Discont inued 500 MG PO Twice daily as needed for Pain Octobe r 2022 12:00a m May 28, 2024 12:42 pm Pyridostigm ine Howard 60 mg tablet Active 120 MG PO Four times daily Octobe r 2022 12:00a m Complies with drug therapy Pyridostigm ine Howard 60 mg Tablet Discont inued 120 MG PO Twice daily 0 Octobe r 2022 12:00a m Febru josé luis2023 4:09p m Lamotrigine 150 mg tablet Discont inued 200 MG PO Daily 2018 1:00am July 10, 2023 1:44p m Warfarin 10 mg tablet Discont inued 5 MG PO Daily 2018 1:00am Octob er 2022 3:03a m Metoprolol Succinate 100 mg tablet extended release 24 hr Discont inued 50 MG PO Daily 2018 1:00am Octob er 2023 10:11 am Venlafaxine 150 mg capsule,ext ended release 24hr Active 300 MG PO Daily 2018 1:00am Complies with drug therapy Lisinopril 5 mg tablet Discont inued 5 MG PO Daily 2018 1:00am Octob er 2022 3:02a m Hydroxychlo roquine 200 mg tablet Discont inued 200 MG PO Twice daily 2018 1:00am May 28, 2024 12:42 pm Temazepam (Restoril) 15 mg capsule Discont inued 15 MG PO Daily at bedtime 2023 [facility] Hydrocodone -Acetaminop hen 5-325 mg tablet Discont inued 1 TAB PO Every 6 hours as needed for pain 28 7 2023August 19, 2023 10:46 am Buspirone 10 mg tablet Discont inued 10 MG PO Twice daily 60 2023 1:00am June 03, 2023 10:41 am Trazodone 50 mg tablet Discont inued 50 MG PO Daily at bedtime 30 2023 1:00am June 02, 2023 1:13p m Cariprazine (Vraylar) 3 mg capsule Discont inued 3 MG PO Daily August 19, 2023 12:00a m May 28, 2024 12:42 pm Quetiapine (Seroquel) 25 mg tablet Discont inued 25 MG PO Daily at bedtime August 19, 2023 12:00a m Augus t 2023 2:29p m Tramadol 50 mg tablet Discont inued 50 MG PO Twice daily as needed August 19, 2023 12:00a m Octob er 2023 10:20 am Furosemide 40 mg tablet Discont inued 40 MG PO Daily [facility] 2023 12:00a m Octob er 2024 3:31p m Atorvastati n 40 mg tablet Discont inued 40 MG PO Daily [facility] 2023 12:00a m May 28, 2024 12:42 pm Spironolact one 25 mg tablet Discont inued 25 MG PO Daily [facility] 2023 12:00a m Octob er 2023 10:14 am Metoprolol Tartrate 25 mg tablet Discont inued 12.5 MG PO Daily [facility] 2023 12:00a m May 28, 2024 12:40 pm Aspirin 81 mg tablet,verito yed release (DR/EC) Discont inued 81 MG PO Daily [facility] 2023 12:00a m [facility] 2024 11:31 am Spironolact one 25 mg tablet Active 12.5 MG PO Daily [facility] 2023 10:12a m Complies with drug therapy Fluticasone Furoate-Priti anterol (Breo Ellipta) 100-25 mcg/dose blister with device Discont inued INHALA TION [facility] 2023 12:00a m May 28, 2024 12:39 pm Magnesium Oxide 400 mg magnesium tablet Discont inued 400 MG PO Twice daily [facility] 2023 12:00a m [facility] 2024 11:30 am Mirtazapine 15 mg tablet Discont inued 15 MG PO Daily [facility] 2023 12:00a m May 28, 2024 12:40 pm Furosemide 40 mg tablet Active 40 MG PO Twice daily [facility] 2024 3:29pm Complies with drug therapy Metoprolol Succinate 25 mg tablet extended release 24 hr Active 25 MG PO daily May 28, 2024 1:00am Complies with drug therapy Rosuvastati n 20 mg tablet Active 20 MG PO Daily May 28, 2024 1:00am Complies with drug therapy Dapaglifloz in Propanediol (Farxiga) 10 mg tablet Active 10 MG PO Daily May 28, 2024 1:00am Complies with drug therapy Sacubitril- Valsartan (Entresto) 24-26 mg tablet Discont inued 0.5 TAB PO Twice daily May 28, 2024 1:00am Octob er 2024 3:38p m Ondansetron Hcl 4 mg tablet Discont inued 4 MG PO Every 8 hours as needed for nausea and vomiting May 28, 2024 1:00am Septe mber 2024 11:30 am Rivaroxaban (Xarelto) 20 mg tablet Active 20 MG PO Daily Octobe r 2024 3:29pm Complies with drug therapy Sacubitril- Valsartan (Entresto) 24-26 mg tablet Active 0.5 TAB PO Daily Octobe r 2024 3:38pm Complies with drug therapy Rivaroxaban (Xarelto) 20 mg tablet Discont inued 0 .ROUTE .COMPLEX 90 Septem dion 2024 11:54a m Octob er 2024 3:31p m TAKE 1 TABLET BY MOUTH ONCE DAILY Lamotrigine 200 mg tablet Active 200 MG PO Daily July 10, 2023 12:00a m Complies with drug therapy Mupirocin 2 % ointment Discont inued 1 APPLIC TOPICA L Twice daily October 24, 2023 12:00a m May 28, 2024 12:42 pm [employer] application Externally Twice a day; Note: Source Status: Taking; Refills: 1; Qty: 22 Gram; Provider: Chaparro Reynoso Sodium Chloride 1,000 mg tablet,solu ble Discont inued 1 TAB PO Daily October 24, 2023 12:00a m May 28, 2024 12:41 pm Free[employer] tablet Orally daily; Note: Source Status: Start; Refills: 1; Qty: 90 Tablet; Provider: Chaparro Reynoso Levothyroxi ne 50 mcg tablet Discont inued 50 MCG PO Daily October 30, 2023 4:21pm Janua ry 2024 5:40p m Relevant Diagnostic Tests and/or Laboratory Data Laboratory Results Test Collection Date/Time Result Date/Time Result Interpretation Reference Range Result Comment Performing Site Cholester ol/HDL Ratio October 12, 2024 11:29am October 12, 2024 11:29am 2.3 3.3 - 4.4 LOW RISK4.4 - 7.1 AVERAGE RISK7.1 - 11.0 MODERATE RISK>11.0 HIGH RISK Anion Gap October 12, 2024 11:29am October 12, 2024 11:29am 15.9 Cholester ol Level October 12, 2024 11:29am October 12, 2024 11:29am 148 mg/dL <=200 Albumin/G lobulin Ratio October 12, 2024 11:29am October 12, 2024 11:29am 0.9 HDL Cholester ol October 12, 2024 11:29am October 12, 2024 11:29am 63 mg/dL Above high normal 40-60 > or =60 mg/dl - LOW CARDIOVASCUL AR RISK<40 mg/dl - HIGH CARDIOVASCUL AR RISK Albumin October 12, 2024 11:29am October 12, 2024 11:29am 3.7 g/dL 3.4-5.0 LDL Cholester ol, Calculate d October 12, 2024 11:29am October 12, 2024 11:29am 60.0 mg/dL <100 mg/dl [id number] 29 mg/dl NEAR OR ABOVE [id number] 59 mg/dl BORDERLINE [id number] mg/dl HIGH>190 mg/dl VERY HIGH Alkaline Phosphata se October 12, 2024 11:29am October 12, 2024 11:29am 128 U/L Above high normal 46-116 Triglycer ides Level October 12, 2024 11:29am October 12, 2024 11:29am 127 mg/dL <=150 Alanine Aminotran sferase (ALT/SGPT ) October 12, 2024 11:29am October 12, 2024 11:29am 27 U/L 14-59 VLDL Cholester ol October 12, 2024 11:29am October 12, 2024 11:29am 25.4 mg/dL Aspartate Amino Transf (AST/SGOT ) October 12, 2024 11:29am October 12, 2024 11:29am 27 U/L 15-37 BUN/Creat inine Ratio October 12, 2024 11:29am October 12, 2024 11:29am 11.9 Blood Urea Nitrogen October 12, 2024 11:29am October 12, 2024 11:29am 18.0 mg/dL 7.0-18.0 Calcium Level October 12, 2024 11:29am October 12, 2024 11:29am 9.2 mg/dL 8.5-10.1 Chloride Level October 12, 2024 11:29am October 12, 2024 11:29am 104 mmol/L 98-107 Carbon Dioxide Level October 12, 2024 11:29am October 12, 2024 11:29am 28.7 mmol/L 21.0-32.0 Creatinin e October 12, 2024 11:29am October 12, 2024 11:29am 1.51 mg/dL Above high normal 0.55-1.02 Estimated GFR () October 12, 2024 11:29am October 12, 2024 11:29am 42 Below low normal >=60 mL/min/1.7 3m 2 Estimated GFR (Non-Afri can [place] Islander October 12, 2024 11:29am October 12, 2024 11:29am 35 Below low normal >=60 mL/min/1.7 3m 2 Globulin October 12, 2024 11:29am October 12, 2024 11:29am 3.9 g/dL Glucose Level October 12, 2024 11:29am October 12, 2024 11:29am 172 mg/dL Above high normal 74-106 Potassium Level October 12, 2024 11:29am October 12, 2024 11:29am 3.6 mmol/L 3.5-5.1 Sodium Level October 12, 2024 11:29am October 12, 2024 11:29am 145 mmol/L 136-145 Total Bilirubin October 12, 2024 11:29am October 12, 2024 11:29am 0.5 mg/dL 0.2-1.0 Total Protein October 12, 2024 11:29am October 12, 2024 11:29am 7.6 g/dL 6.4-8.2 Vital Signs Vital Reading Result Reference Range Collection Date/Time Height 62 [in_i] December 21, 2024 11:13am Weight 108.12 kg December 21, 2024 11:13am Heart Rate 48 /min 60-100 December 21, 2024 11:13am Respiratory rate 14 /min 12-24 November 242024 11:13am Oxygen saturation by Pulse oximetry 96 % 95-100 December 21, 2024 11:13am BP Systolic 96 mm[Hg] 100-140 December 21, 2024 11:13am BP Diastolic 63 mm[Hg] 60-100 December 21, 2024 11:13am BMI (Body Mass Index) 43.6 kg/m2 2024 11:13am Height 62 [in_i] December 22 3:23pm Weight 108.52 kg December 22 3:23pm Body Temperature 96.9 [degF] 97.6-99.0 December 3:23pm Heart Rate 49 /min 60-December 22 3:23pm Respiratory rate 18 /min -December 3:23pm Oxygen saturation by Pulse oximetry 95 % 95-100 December 22, 2024 3: 23pm BP Systolic 89 mm[Hg] 100-140 December 22 3:23pm BP Diastolic 60 mm[Hg] 60-100 December 22 3:23pm BMI (Body Mass Index) 43.7 kg/m2 Octobe r 2024 3:23pm Advance Directives Advance Directive Response Recorded Date/ Time Advance Directives No April 07, 2018 1:57pm Insurance Providers Guarantor Ruma Carlton Address [address] [place] [address] Contact Info. Home Phone: Payer Policy Id Subscriber's Name Subscriber Id Effective Date Expiration Date MMO [id number] Ruma Carlton [id number] [facility]/BS [id number] Ruma Carlton [id number] [facility] Medicaid [id number] Ruma Carlton [id number] [facility] [id number] Ruma Carlton [id number] Encounters Encounter Location(s) Arrival/Admit Date Discharge/Depart Date Provider(s) Non-patient / Non-visit -[facility] October 12, 2024 11:29am Lyndsey Pedraza CNP Departed Physician/Prov ider Office Visit -[facility] December 21, 2024 11:25am December 21, 2024 11:57am Merissa Mayfield MD Departed Physician/Prov ider Office Visit -[facility] December 22, 2024 3:21pm December 22, 2024 3:46pm Ramy Santacruz MD Recent Diagnosis Onset Date Admit Date Abnormal TSH Unknown December 21, 2024 11:25am COPD (chronic obstructive pulmonary disease) Unk nown December 21, 2024 11:25am Dyspnea on exertion Unknown December 212024 11:25am Screening mammogram for breast cancer Unknown December 21, 2024 11:25am CAD (coronary artery disease) Unknown Oc tob2024 3:21pm Assessments Diagnosis Onset Date Resolution Status Admit Date Abnormal TSH acute December 212024 11:25am COPD (chronic obstructive pulmonary disease) acute November 11:25am Dyspnea on exertion acute Septe mb2024 11:25am Screening mammogram for breast cancer acute December 21, 2024 11:25am CAD (coronary artery disease) acute December 22, 2024 3:21pm Plan of Treatment Future Tests Future scheduled test information is unavailable Pending Tests Test Name Ordered Date Scheduled Date Renal Function Panel December 22, 2024 3:42pm 6 Weeks US renal BI December 22, 2024 3:40pm MM screening mammo BI w/CAD December 21, 2024 11:52am Future Visits Future appointment information is unavailable Referrals to Other Providers Reason for Referral Referral Start Date Provider Provider Contact Information Provider Address J44.9 - Chronic obstructive pulmonary disease, unspecified,R06.09 - Other forms of dyspnea December 21, 2024 [facility] Pulmonary Medicine Work Phone: [address] [address] Future Procedures Procedure Name Ordered Date Scheduled Date Dipstick and Microscopic December 22, 2024 3:42p m 6 Weeks Hemogram CBC Without Diff December 22, 2024 3:42 pm 6 Weeks Magnesium December 22, 2024 3:42pm 6 Weeks Protein Creat Ratio Ur Random December 22, 2024 3:42pm 6 Weeks Parathyroid Hormone Intact December 22, 2024 3:4 2pm 6 Weeks Uric Acid December 22, 2024 3:42pm 6 Weeks Vitamin D 25 Hydroxy Total December 22, 2024 3:4 2pm 6 Weeks Free T4 (Free Thyroxine) December 21, 2024 11 :51am Thyroid Stim Hormone w/Rflx December 21, 2024 11:51am Future Medications Future medication information is unavailable Patient Instructions Patient instructions are unavailable
--- OUTSIDE RECORDS SUMMARY | 2024-12-29 12:29 | XMS_ITS | CCD ---
Author Organization [facility] Care Team Providers Care Sofa Cover Inspector Name Role Phone Anibal Chaudhary Primary Care Provider [phone] Sidra Potter Attending Provider ANIBAL CHAUDHARY Primary [...] Provider MD Anibal Chaudhary Primary Care Provider POCJEFFERSON, YANY Jc Attending Unavailable POCOSYANY Referring Unavailable POCOS, YANY Jc Referring Unavailable POCOS, YANY Jc Attending Unavailable MD Anibal Chaudhary Primary Care Provider NIRANJAN Wagoner Attending Provider [phone] Pocos, Yany Jc Attending Unavailable Pocjefferson, Yany Jc Referring Unavailable ANIBAL CHAUDHARY Unavailable PocYany chang Admitting Unavailable Pocjefferson, Yany Jc Attending Unavailable PocYany chang Referring Unavailable MD ANIBAL CHAUDHARY Consulting Unavailable MD Anibal Chaudhary Primary Care Provider [phone] MD Anibal Chaudhary Attending Provider ObNIRANJAN conley Attending Provider MelanieVIPINP-C Gale Attending Provider Melanie, Gale Admitting Unavailable Melanie, Gale Attending Unavailable NON STAFF Primary Care Unavailable Petr Kowalski Attending Unavailable Froilan Brown Admitting Unavailable Chaudhary, Anibal E Primary Care Unavailable Community, Outreach Attending Unavailable Denis Chaudharyia E Primary Care Unavailable Community[facility] Outreach Admitting Unavailable Chaparro, Anibal E Primary Care Unavailable Pam Wagoner Admitting Unavailable Pam Wagoner Attending Unavailable Chaparro, Anibal E Admitting Unavailable Chaudhary, Anibal E Primary Care Unavailable Anibal Chaudhary Attending Unavailable ObermeyerBarby Admitting Unavailable ObermeyBarby miller Attending Unavailable Chaudhary, Anibal E Primary Care Unavailable Melanie, Gale Admitting Unavailable Melanie, Gale Attending Unavailable NON STAFF Primary Care Provider Unavailabl e DARY AMARAL Attending Unavailable HORANI, EMILIE Admitting Unavailable HORANI, EMILIE Referring Unavailable MARCELLO WAGNER Admitting Unavailable MARCELLO WAGNER Attending Unavailable AGUEDA ZUÑIGA Referring Unavailabl e AGUEDA ZUÑIGA Referring Unavailabl e MARCELLO WAGNER Referring Unavailable KARON ADAMS Attending Unavailable DARRYL PEDRAZA Attending Unavailable DARRYL PEDRAZA Attending Unavailable KARON ADAMS Attending Unavailable AL JOHNSON Attending Unavailable KARON ADAMS Attending Unavailable RHONDA BARNES Referring Unavailable JULIENLORIA Referring Unavailable AGUEDA ZUÑIGA Referring Unavailabl e RHONDA BARNES Referring Unavailable ALAN PATEL Referring Unavailable PATELHEIKE LORENZANAER Referring Unavailable AGUEDA ZUÑIGA Referring Unavailabl e AGUEDA ZUÑIGA Referring Unavailabl e AGUEDA ZUÑGIA Referring Unavailabl e CAMILOYASH MCARTHUR Referring Unavailable ZENZ, KENDELL Referring Unavailable BECKIEARIS SIMMONSNAZ Referring Unavailable PATEL, ALAN Referring Unavailable AGUEDA ZUÑIGA Referring Unavailabl e JULIEN, Referring Unavailable PATEL, ALAN Referring Unavailable ZENZ, KENDELL Referring Unavailable JULIEN, Referring Unavailable JULIEN, Referring Unavailable JULIEN, Referring Unavailable JULIEN, Attending Unavailable ELTACHRISTIAN, EHAB Referring Unavailable LOUISEGEREMIASNEO BALDWINJUANPABLOTeresa Attending Unavailable AGUEDA ZUÑIGA Referring Unavailabl e CAMERON, RHONDA Referring Unavailable JULIEN, Referring Unavailable Anibal Chaudhary MD Primary Care Provider [phone] Darryl Mcleod Attending Provider [phone] Anibal Chaudhary MD Attending Provider Ramy Santacruz MD Attending Provider Allergies Allergy Classification Reported Allergen(s) Allergy Type Date of Onset Reaction(s) Facility Unclassified (1 source) Allergy to substance [facility] (13 sources) Codeine Drug Allergy Unknown [employer] [facility] mymission2 Other (20 sources) Metoclopramide; Translations: [METOCLOPRAMIDE] Drug Allergy 07-13-19 10 Unknown, [facility] (13 sources) Sulfamethoxazole / Trimethoprim Drug Allergy Unknown [facility] mymission2 Other (13 sources) Sulfonamides (Antibiotic) Drug allergy rash [facility] mymission2 Other (14 sources) Codeine; Translations: [CODEINE] Drug Allergy 04-06-19 14 [facility] Rep[facility] (1 source) Iothalamate Drug Allergy 04-06-19 14 [facility] Repository (1 source) Morphine Drug Allergy 04-12-19 14 [facility] Repository (1 source) Sulfonamides (Antibiotic) Drug allergy (disorder) 04-06-19 14 [facility] Repository (5 sources) Codeine Drug Allergy 02-25-20 14 Unknown [employer] Other (16 sources) Sulfonamides (Antibiotic); Translations: [Sulfa (Sulfonamide Antibiotics)] Allergy to substance 03-11-20 14 Hives, Hives, rash [facility] (13 sources) Sulfamethoxazole; Translations: [sulfamethoxazole] Drug Allergy 05-08-19 24 [facility] (13 sources) Trimethoprim; Translations: [trimethoprim] Drug Allergy 05-08-19 [facility] (1 source) Codeine Drug Allergy 10-27-19 [facility] Repository (1 source) Metoclopramide Drug Allergy 10-27-19 [facility] Repository (1 source) Metoclopramide; Translations: [METOCLOPRAMIDE HCL] Drug Allergy 03-11-20 14 [facility] Repository Medications Current Medications Medication Drug Class(es) Dates Sig (Normalized) Sig (Original) 24 hr amphetamine aspartate 2.5 mg / amphetamine sulfate 2.5 mg / dextroamphetamine saccharate 2.5 mg / dextroamphetamine sulfate 2.5 mg extended release oral capsule (2 sources) Central Nervous System Stimulant Start: 12-27-2022 take 1 capsule by mouth every twenty-four hours Adderall XR 10 MG 1 capsule in the morning Orally Once a day for 30 days Dec, Active clopidogrel 75 mg oral tablet (2 sources) P2Y12 Platelet Inhibitor Start: 09-03-2024 take 1 tablet by mouth once daily Clopidogrel (Plavix) 75 mg tablet Active 75 MG PO Daily September 03, 2024 12:00am Complies with drug therapy dapagliflozin 10 mg oral tablet (3 sources) Sodium-Glucose Cotransporter 2 Inhibitor Start: 05-28-2024 take 1 tablet by mouth once daily Dapagliflozin Propanediol (Farxiga) 10 mg tablet Active 10 MG PO Daily May 28, 2024 1:00am Complies with drug therapy furosemide 40 mg oral tablet (5 sources) Loop Diuretic Start: 12-22-2024 take 1 tablet by mouth twice daily Furosemide 40 mg tablet Active 40 MG PO Twice daily December 22, 2024 3:29pm Complies with drug therapy Start: 01-22-2024 End: 12-22-2024 take 1 tablet by mouth once daily Furosemide 40 mg tablet Discontinued 40 MG PO Daily January 22, 2024 12:00am December 22, 2024 3:31pm lamoTRIgine 200 mg oral tablet (20 sources) Mood Stabilizer, Anti-epileptic Agent Start: 07-10-2023 take 1 tablet by mouth once daily Lamotrigine 200 mg tablet Active 200 MG PO Daily July 10, 2023 12:00am Complies with drug therapy Start: 05-20-2018 take 150 mg by mouth [...] 90 days Active 24 hr metoprolol succinate 25 mg extended release oral tablet (20 sources) beta-Adrenergic Na Start: 05-28-2024 take 1 tablet by mouth once daily Metoprolol Succinate 25 mg tablet extended release 24 hr Active 25 MG PO daily May 28, 2024 1:00am Complies with drug therapy Start: 01-22-2024 End: 05-28-2024 Metoprolol Tartrate 25 [...] 1 tablet three times a day Active pyridostigmine bromide 60 mg oral tablet (20 sources) Start: take 2 tablets by mouth four times daily Pyridostigmine Spencer 60 mg tablet Active 120 MG PO Four times daily December 24, 2022 12:00am Complies with drug therapy Start: 12-24-2022 End: 12-24-2022 Pyridostigmine Spencer 180 m g Tablet Extended Release Discontinued 120 MG PO Daily December 24, 2022 12:00am December 24, 2022 8:13am Start: 12-24-2022 End: 05-08-2023 take 2 tablets by mouth twice daily Pyridostigmine Spencer 60 mg Tablet Discontinued 120 MG PO Twice daily 0 December 24, 2022 12:00am May 08, 2023 4:09pm Start: 12-24-2022 take 120 mg by mouth four times daily Pyridostigmine Spencer Active 120 MG PO Four times daily December 24, 2022 12:00am Start: 12-24-2022 End: 12-24-2022 take 120 mg by mouth once daily Pyridostigmine Spencer Discontinued 120 MG PO Daily December 24, 2022 12:00am December 24, 2022 8:13am Start: 12-24-2022 End: 05-08-2023 take 120 mg by mouth twice daily Pyridostigmine Spencer Discontinued 120 MG PO Twice daily 0 December 24, 2022 12:00am May 08, 2023 4:09pm take 1 tablet by veronica th every four hours Pyridostigmine Spencer 60 MG 1 tablet Orally every 4 hrs Active rivaroxaban 20 mg oral tablet (20 sources) Factor Xa Inhibitor Start: 12-22-2024 take 1 tablet by mouth once daily Rivaroxaban (Xarelto) 20 mg tablet Active 20 MG PO Daily December 22, 2024 3:29pm Complies with drug therapy Start: 10-22-2023 End: 10-01-2025 take 1 tablet by mouth once daily Rivaroxaban (Xarelto) 20 mg tablet Discontinued 0 .ROUTE .COMPLEX December 21, 2024 11:54am December 22, 2024 3:31pm TAKE 1 TABLET BY MOUTH ONCE DAILY [...] Active rosuvastatin calcium 20 mg oral tablet (3 sources) HMG-CoA Reductase Inhibitor Start: take 1 tablet by mouth once daily Rosuvastatin 20 mg tablet Active 20 MG PO Daily May 28, 2024 1:00am Complies with drug therapy sacubitril 24 mg / valsartan 26 mg oral tablet (4 sources) Angiotensin 2 Receptor Na Start: take 0.5 tablet by mouth once daily Sacubitril-Valsartan (Entresto) 24-26 mg tablet Active 0.5 TAB PO Daily December 22, 2024 3:38pm Complies with drug therapy Start: 05-28-2024 End: 12-22-2024 take 0.5 tablet by mouth twice daily Sacubitril-Valsartan (Entresto) 24-26 mg tablet Discontinued 0.5 TAB PO Twice daily May 28, 2024 1:00am December 22, 2024 3:38pm spironolactone 25 mg oral tablet (8 sources) Aldosterone Antagonist Start: 01-22-2024 Spironolactone 25 mg tablet Active 12.5 MG PO Daily January 22, 2024 10:12am Complies with drug therapy Start: 01-22-2024 take 12.5 mg by mout [...] MG PO Daily May 20, 2018 1:00am Complies with drug therapy Start: 05-20-2018 take 300 mg by mouth once yolanda y Venlafaxine Active 300 MG PO Daily May 20, 2018 1:00am take 2 capsules by m outh once daily Venlafaxine HCl ER 150 MG TAKE 2 CAPSULES BY MOUTH DAILY for 90 Active Effexor XR Not-T aking Completed/Discontinued Medications Medication Drug Class(es) Dates Sig (Normalized) Sig (Original) acetaminophen 500 mg oral tablet (14 sources) Start: 12-24-2022 End: 05-28-2024 take 1 tablet by mouth twice daily as needed for pain Acetaminophen 500 mg Tablet Discontinued 500 MG PO Twice daily as needed for Pain December 24, 2022 12:00am May 28, 2024 12:42pm acetaminophen 325 mg / HYDROcodone bitartrate 5 mg oral tablet (20 sources) Opioid Agonist Start: 05-08-2023 End: 08-19-2023 [...] 6 hrs for 30 days Apr, Active [id number] 200 actuat albuterol 0.09 mg/actuat metered dose inhaler (5 sources) beta2-Adrenergic Agonist Start: 07-19-2016 take 2 puff(s) by inhalation every six hours as needed Ventolin HFA 108 (90 Base) MCG/ACT 2 puffs as needed Inhalation every 6h prn Jun, Not-Taking amiodarone hydrochloride 200 mg oral tablet (2 sources) Antiarrhythmic Start: 09-03-2024 End: 12-21-2024 take 1 tablet by mouth once daily Amiodarone 200 mg tablet Discontinued 200 MG PO Daily September 03, 2024 12:00am December 21, 2024 11:31am aspirin 81 mg delayed release oral tablet (4 sources) Platelet Aggregation Inhibitor, Nonsteroidal Anti-inflammatory Drug Start: 01-22-2024 End: 12-21-2024 take 1 tablet by mouth once daily Aspirin 81 mg tablet,delayed release (DR/EC) Discontinued 81 MG PO Daily January 22, 2024 12:00am December 21, 2024 11:31am atorvastatin 40 mg oral tablet (4 sources) HMG-CoA Reductase Inhibitor Start: 01-22-2024 End: 05-28-2024 take 1 tablet by mouth once daily Atorvastatin 40 mg tablet Discontinued 40 MG PO Daily January 22, 2024 12:00am May 28, 2024 12:42pm benzonatate 100 mg oral capsule (5 sources) Non-narcotic Antitussive Start: 07-19-2016 take 1 capsule by mouth every eight hours Tessalon Perles 100 MG 1 capsule as needed Orally Three times a day Jun, Not-Taking busPIRone hydrochloride 10 mg oral tablet (20 sources) Start: 05-08-2023 End: 08-19-2023 take 1 tablet by mouth twice daily Buspirone 10 mg tablet Discontinued 10 MG PO Twice daily 60 June 03, 2023 10:41am August 19, 2023 10:45am cariprazine 3 mg oral capsule (10 sources) Atypical Antipsychotic Start: 08-19-2023 End: 05-28-2024 take 1 capsule by mouth once daily Cariprazine (Vraylar) 3 mg capsule Discontinued 3 MG PO Daily August 19, 2023 12:00am May 28, 2024 12:42pm cholecalciferol 1.25 mg oral capsule (19 sources) Vitamin D Start: 10-06-2023 End: 05-28-2024 [...] 18, 2023 12:00am October 06, 2023 10:00am 30 actuat fluticasone furoate 0.1 mg/actuat / vilanterol 0.025 mg/actuat dry powder inhaler (4 sources) Corticosteroid, beta2-Adrenergic Agonist Start: 01-22-2024 End: 05-28-2024 Fluticasone Furoate-Vilanterol (Breo Ellipta) 100-25 mcg/dose blister with device Discontinued INHALATION January 22, 2024 12:00am May 28, 2024 12:39pm hydroxychloroquine sulfate 200 mg oral tablet (20 sources) Antimalarial, Antirheumatic Agent Start: 05-20-2018 End: 05-28-2024 take 1 tablet by mouth twice daily Hydroxychloroquine 200 mg tablet Discontinued 200 MG PO Twice daily May 20, 2018 1:00am May 28, 2024 12:42pm ketorolac tromethamine 5 mg/ml ophthalmic solution (14 sources) Nonsteroidal Anti-inflammatory Drug, Cyclooxygenase Inhibitor Start: [...] 24, 2022 12:00am May 08, 2023 4:08pm levothyroxine sodium 0.05 mg oral tablet (20 sources) l-Thyroxine Start: 08-20-2023 End: 10-18-2024 take 1 tablet by mouth once daily Levothyroxine 50 mcg tablet Discontinued 50 MCG PO Daily October 30, 2023 4:21pm April 20, 2024 5:40pm lisinopril 5 mg oral tablet (20 sources) Angiotensin Converting Enzyme Inhibitor Start: 05-20-2018 End: 12-24-2022 take 1 tablet by mouth once daily Lisinopril 5 mg tablet Discontinued 5 MG PO Daily May 20, 2018 1:00am December 24, 2022 3:02am Lisinopril Not-T aking magnesium oxide 400 mg oral tablet (4 sources) Start: 01-22-2024 End: 12-21-2024 take 1 tablet by mouth twice daily Magnesium Oxide 400 mg magnesium tablet Discontinued 400 MG PO Twice daily January 22, 2024 12:00am December 21, 2024 11:30am mirtazapine 15 mg oral tablet (4 sources) Start: 01-22-2024 End: 05-28-2024 take 1 tablet by mouth once daily Mirtazapine 15 mg tablet Discontinued 15 MG PO Daily January 22, 2024 12:00am May 28, 2024 12:40pm mupirocin 0.02 mg/mg topical ointment (20 sources) RNA Synthetase Inhibitor Antibacterial Start: 10-24-2023 End: 05-28-2024 Mupirocin 2 % ointment Discontinued 1 APPLIC [...] a day for 5 day(s) Apr, Active Omeprazole (5 sources) Proton Pump Inhibitor Omeprazole Not-Taking ondansetron 4 mg oral tablet (3 sources) Serotonin-3 Receptor Antagonist Start: 05-29-19 End: 12-22-19 take 1 tablet by mouth every eight hours as needed for nausea and vomiting Ondansetron Hcl 4 mg tablet Discontinued 4 MG PO Every 8 hours as needed for nausea and vomiting May 28, 2024 1:00am December 21, 2024 11:30am QUEtiapine 25 mg oral tablet (10 sources) Atypical Antipsychotic Start: 08-19-19 End: 10-27-19 take 1 tablet by mouth once daily at bedtime Quetiapine (Seroquel) 25 mg tablet Discontinued 25 MG PO Daily at bedtime August 19, 2023 12:00am October 27, 2023 2:29pm SITagliptin 100 mg oral tablet (20 sources) Dipeptidyl Peptidase 4 Inhibitor Start: 09-09-19 End: 05-29-19 take 1 tablet by mouth [...] 9:11am sodium chloride 1000 mg oral tablet (11 sources) Start: 10-24-2023 End: 05-28-2024 take 1 tablet by mouth once daily Sodium Chloride 1,000 mg tablet,soluble Discontinued 1 TAB PO Daily October 24, 2023 12:00am May 28, 2024 12:41pm [employer] tablet Orally daily; Note: Source Status: Start; Refills: 1; Qty: 90 Tablet; Provider: Chaparro Reynoso take 1 tablet by veronica every twenty-four hours Sodium Chloride 1 GM 1 tablet Orally daily for 90 days Active temazepam 15 mg oral capsule (20 sources) Benzodiazepine Start: 05-08-2023 End: 05-08-2023 take 1 capsule by mouth once daily at bedtime Temazepam (Restoril) 15 mg capsule Discontinued 15 MG PO Daily at bedtime May 08, 2023 1:00am May 08, 2023 4:37pm Start: 09-12-2022 take 1 capsule by mo [facility] every twenty-four hours Temazepam 15 MG 1 [...] Start: 09-13-2022 take 1 tablet by veronica three times daily as needed traMADol HCl 50 MG 1 tablet as needed Orally tid prn for 30 days Aug, Active traZODone hydrochloride 50 mg oral tablet (20 sources) Serotonin Reuptake Inhibitor Start: 05-08-2023 End: 08-19-2023 take 1 tablet by mouth once daily at bedtime Trazodone 50 mg tablet Discontinued 50 MG PO Daily at bedtime June 02, 2023 1:13pm August 19, 2023 10:46am warfarin sodium 10 mg oral tablet (20 sources) Vitamin K Antagonist Start: 05-20-2018 End: [...] Active Problems Problem Classification Problem Date Documented Date Episodic/Chronic Acute myocardial infarction (2 sources) Non-ST elevation (NSTEMI) myocardial infarction; Translations: [Non-ST elevation (NSTEMI) myocardial infarction] Onset: 5 Chronic Administrative/social admission (1 source) Counseling procedure with explicit context; Translations: [Dietary counseling and surveillance] Episodic Anxiety disorders (16 sources) Anxiety; Translations: [Other specified anxiety disorders] Onset: 4 Chronic Cardiac dysrhythmias (2 sources) Paroxysmal atrial fibrillation; Translations: [Paroxysmal atrial fibrillation] Onset: 5 Chronic Cardiac dysrhythmias (4 sources) Tachycardia; Translations: [Tachycardia, unspecified] Onset: 6 Episodic Chronic kidney disease (1 source) Chronic kidney disease stage 3; Translations: [Stage 3 chronic kidney disease] 12-22-2024 Chronic Chronic obstructive pulmonary disease and bronchiectasis (2 sources) Chronic obstructive lung disease; Translations: [Chronic obstructive pulmonary disease, unspecified] 12-21-2024 Chronic Chronic obstructive pulmonary disease and bronchiectasis (1 source) Chronic obstructive pulmonary disease and bronchiectasis Congestive heart failure; nonhypertensive (4 sources) Acute on chronic combined systolic (congestive) and diastolic (congestive) heart failure; Translations: [Heart failure, unspecified] Onset: 5 Chronic Coronary atherosclerosis and other heart disease (12 sources) Coronary arteriosclerosis; Translations: [Atherosclerotic heart disease of [place] coronary artery without angina pectoris] Onset: 5 01-29-2024 Chronic Diabetes mellitus with complications (17 sources) Hyperglycemia due to type 2 diabetes mellitus; Translations: [Type 2 diabetes mellitus with hyperglycemia] Onset: 2 12-22-2024 Chronic Diabetes mellitus without complication (17 sources) [...] childhood and adolescence] Chronic E Codes: Fall (16 sources) Fall; Translations: [Unspecified fall, initial encounter] 12-24-2022 Episodic Essential hypertension (16 sources) Hypertensive disorder; Translations: [Essential (primary) hypertension] Onset: 4 10-27-2023 Chronic Fluid and electrolyte disorders (18 sources) Hyponatremia; Translations: [Hypo-osmolality and hyponatremia] Onset: 3 12-24-2022 Episodic Genitourinary symptoms and ill-defined conditions (13 sources) Increased frequency of urination; Translations: [Frequency of micturition] 08-19-2023 Episodic Hypertension with complications and secondary hypertension (1 source) Chronic kidney disease due to hypertension; Translations: [Hypertensive chronic kidney disease with stage 1 through stage 4 chronic kidney disease, or unspecified chronic kidney disease] 12-22-2024 Chronic Immunizations and screening for infectious disease (1 source) Raised antibody titer; Translations: [RAISED ANTIBODY TITER] Onset: 3 Episodic Malaise and fatigue (2 sources) Fatigue; Translations: [Other fatigue] Episodic Miscellaneous mental health disorders (9 sources) Primary insomnia; Translations: [Primary insomnia] Chronic Mood disorders (20 sources) Depressive disorder; Translations: [Depressive disorder] Onset: 4 05-08-2023 Chronic Osteoarthritis (14 sources) Osteoarthritis; Translations: [Unspecified osteoarthritis, unspecified site] Onset: 4 05-08-2023 Chronic Other acquired deformities (13 sources) Contracture of joint of hand; Translations: [Contracture, unspecified hand] Chronic Other aftercare (1 source) Other fdc (current) drug therapy; Translations: [OTH HALF-WAY CURRENT DRUG THERAPY] Onset: 3 Episodic Other circulatory disease (1 source) Other specified symptoms and signs involving the circulatory and respiratory systems Episodic Other diseases of kidney and ureters (1 source) Secondary hyperparathyroidism; Translations: [Secondary hyperparathyroidism of renal origin] 12-22-2024 Chronic Other gastrointestinal disorders (13 sources) Irritable bowel [...] Translations: [Pleurodynia] Episodic Other lower respiratory disease (2 sources) Dyspnea on exertion; Translations: [Other forms of dyspnea] 12-21-2024 Episodic Other non-traumatic joint disorders (6 sources) Polyarthritis, unspecified; Translations: [POLYARTHRITIS UNSPECIFIED] Onset: 2 Chronic Other non-traumatic joint disorders (13 sources) Arthralgia of the pelvic region and thigh; Translations: [Pain in right hip] Episodic Other non-traumatic joint disorders (2 sources) Pain in right hip joint; Translations: [Pain in right hip] Episodic Other non-traumatic joint disorders (14 sources) Hip pain; Translations: [Pain in right [...] [Parkinson's disease] Chronic Phlebitis; thrombophlebitis and thromboembolism (17 sources) H/O: Deep vein thrombosis; Translations: [Personal [...] neoplasm of breast] Episodic Residual codes; unclassified (10 sources) Edema of lower extremity; Translations: [Localized [...] Translations: [Acute bronchitis, unspecified] Onset: 07-13-2015 Episodic Coronary atherosclerosis and other heart disease (2 sources) Presence of aortocoronary bypass graft; Translations: [Presence of aortocoronary bypass graft] Onset: 05-12-2024 Episodic Diabetes mellitus without complication (2 sources) [...] Insomnia; Translations: [Insomnia, unspecified] Onset: 09-10-2018 Episodic Residual codes; unclassified (2 sources) Tobacco use; Translations: [Tobacco use] Onset: 08-04-2024 Episodic Unclassified (2 sources) Lumbar pain M54.50 Unclassified (4 sources) Depressive disorder F32.A Unclassified (1 source) Supraventricular tachycardia, unspecified; Translations: [Supraventricular tachycardia, unspecified] Onset: 08-04-2024 Results Test Name Value Interpretation Reference Range Facility 36on 12-13-2024 36 Pt informed sent to [facility] 36on 12-02-2024 36 Regarding PFT result from 11/26/2024: Al Johnson MD to Me (Selected Message) EE 12/01/24 4:23 PM Please let her know her pulmonary function tests are abnormal and I would recommend she see a fund controller. Thank you [facility] Telephoneon 12-02-2024 Telephone [facility] Orders Onlyon 12-01-2024 Orders Only [facility] 36on 10-18-2024 36 [facility] Cholesterol in LDL Calc [Mas s/Vol]Ordered By: Darryl Pedraza on 10-12-2024 Cholesterol in LDL [Mass/Vol] 60.0 mg/dL [facility] Comment on above: <100 mg/dl [id number] 0-129 mg/dl NEAR OR ABOVE [id number] mg/dl BORDERLINE [id number] mg/dl HIGH>190 mg/dl VERY HIGH Cholesterol in VLDL Calc [Ma ss/Vol]Ordered By: Darryl Pedraza on 10-12-2024 Cholesterol in VLDL [Mass/Vol] 25.4 mg/dL [facility] Globulin Calc (S) [Mass/Vol] Ordered By: Darryl Pedraza on 10-12-2024 Globulin (S) [Mass/Vol] 3.9 g/dL [facility] Glomerular filtration rate ( GFR) estimation in non- AmericanOrdered By: Darryl Pedraza on 10-12-2024 GFR/1.73 sq M.predicted among non-blacks MDRD (S/P/Bld) [Vol rate/Area] 35 mL/min/{1.73_m2} Low >=60 mL/min/1.[address] [facility] Laboratory - Chemistry and C hemistry - challengeOrdered By: Darryl Pedraza on 10-12-2024 Albumin [Mass/Vol] 3.7 g/dL 3.4-5.0 [facility] ALP [Catalytic activity/Vol] 128 U/L High 46-116 [facility] ALT [Catalytic activity/Vol] 27 U/L 14-59 [facility] AST [Catalytic activity/Vol] 27 U/L 15-37 [facility] Bilirubin [Mass/Vol] 0.5 mg/dL 0.2-1.0 [facility] Calcium [Mass/Vol] 9.2 mg/dL 8.5-10.1 [facility] [facility] Chlor[facility] [Moles/Vol] 104 mmol/L 98-107 [facility] Cholesterol [Mass/Vol] 148 mg/dL <=200 [facility] Cholesterol in HDL [Mass/Vol] 63 mg/dL High 40-60 [facility] Comment on above: > or =60 mg/dl - LOW CARDIOVASCULAR RISK<40 mg/dl - HIGH CARDIOVASCULAR RISK CO2 [Moles/Vol] 28.7 mmol/L 21.0-32.0 [facility] Creatinine [Mass/Vol] 1.51 mg/dL High 0.55-1.02 [facility] GFR/1.73 sq M.predicted MDRD (S/P/Bld) [Vol rate/Area] 42 mL/min/{1.73_m2} Low >=60 mL/min/1.[address] [facility] Glucose [Mass/Vol] 172 mg/dL High 74-106 [facility] Potassium [Moles/Vol] 3.6 mmol/L 3.5-5.1 [facility] Protein [Mass/Vol] 7.6 g/dL 6.4-8.2 [facility] Sodium [Moles/Vol] 145 mmol/L 136-145 [facility] Triglyceride [Mass/Vol] 127 mg/dL <=150 [facility] Urea nitrogen [Mass/Vol] 18.0 mg/dL 7.0-18.0 [facility] Urea nitrogen/Creatinine [Mass ratio] 11.9 mg/mg [facility] Serum or plasma albumin/glob ulin mass ratioOrdered By: Darryl Pedraza on 10-12-2024 Albumin/Globulin [Mass ratio] 0.9 {ratio} [facility] Serum or plasma anion gap de terminationOrdered By: Darryl Pedraza on 10-12-2024 Anion gap [Moles/Vol] 15.9 mmol/L [facility] Serum or plasma total choles terol/high density lipoprotein (HDL) cholesterol mass ratOrdered By: Darryl Pedraza on 10-12-2024 Cholesterol.total/Chol esterol in HDL [Mass ratio] 2.3 {ratio} [facility] Comment on above: 3.3 - 4.4 LOW RISK4. 4 - 7.1 AVERAGE RISK7.1 - 11.0 MODERATE RISK>11.0 HIGH RISK ANESon 07-21-2024 ANES Normal [facility] HPon 07-21-2024 HP Normal [facility] NURSNOTEon 07-21-2024 NURSNOTE Patient ambulated to bathroom. Gait steady. Right groin cath site without bleeding or hematoma [facility] NURSBRUNO Wagner assessed patient and site. Told her she could be discharged home at 6:30pm [facility] NURSNOTE Normal [facility] Orders Onlyon 07-13-2024 Orders Only [facility] 36on 07-07-2024 36 Per HAILE [place] P - patient needs scheduled for heart cath with Dr. Johnson s/p abnormal stress test performed on 07/01/2024. Patient made aware. Orders entered. [facility] Orders Onlyon 07-06-2024 Orders Only [facility] 36on 06-24-2024 36 Spoke to patient and advised her that Francie Pedraza would like her to increase her spirolactone to 12.5 and have a BMP done in 1 month. Patient verbalized understanding. [facility] 36on 06-15-2024 36 Darryl Pedraza CNP P Cardiology Clinical Support Pool Her labs show a slight bump in her kidney function. Would like her to go back to spironolactone 12.5mg daily. Follow up BMP in 1 month. Thank you Left message for patient to call back. [facility] 36on 06-09-2024 36 Okay, lets order for a lexiscan stress test please. Please remind her to get follow up BMP since we increased her aldactone. Thank you [facility] 3705-26-2024 37 *We are increasing spironolactone to 25mg daily *Have lab work done around 06/02/2024 to check kidney function with the increase in spironolactone. *We will call you in 1-2 weeks to see how you are feeling. *Follow-up after event monitor comes off. [facility] 37on 05-20-2024 37 [facility] Estimated glomerular filtrat ion rate (GFR) non- Americanon 05-20-2024 GFR/1.73 sq M.predicted among non-blacks MDRD (S/P/Bld) [Vol rate/Area] Estimated glomerular filtration rate (GFR) non- Low >=60 mL/min/1.[address] [facility] Laboratory - Chemistry and C hemistry - challengeon 05-20-2024 Calcium [Mass/Vol] 9.4 mg/dL 8.5-10.1 [facility] Chloride [Moles/Vol] 102 mmol/L 98-107 [facility] CO2 [Moles/Vol] 30.4 mmol/L 21.0-32.0 [facility] Creatinine [Mass/Vol] 1.12 mg/dL High 0.55-1.02 [facility] GFR/1.73 sq M.predicted MDRD (S/P/Bld) [Vol rate/Area] 60 mL/min/{1.73_m2} >=60 mL/min/1.[address] [facility] Glucose [Mass/Vol] 158 mg/dL High 74-106 [facility] Potassium [Moles/Vol] 3.8 mmol/L 3.5-5.1 [facility] Sodium [Moles/Vol] 140 mmol/L 136-145 [facility] Urea nitrogen [Mass/Vol] 22.0 mg/dL High 7.0-18.0 [facility] Urea nitrogen/Creatinine [Mass ratio] 19.6 mg/mg [facility] Serum or plasma anion gap de terminationon 05-20-2024 Anion gap [Moles/Vol] Serum or plasma an ion gap determination [facility] Telephoneon 05-18-2024 Telephone Normal [facility] Documentationon 05-17-2024 Documentation Normal [facility] Telephoneon 05-17-2024 Telephone Normal [facility] 36on 05-15-2024 36 Normal [facility] Telephoneon 05-15-2024 Telephone Normal [facility] 30on 05-14-2024 30 Normal [facility] 30 Normal [facility] BASIC METABOLIC PANELon 04-25 Anion gap [Moles/Vol] 14 mmol/L Normal 7-20 [facility] Comment on above: Performed By: #### L [id number] ####[facility] (BEAKER)[address] [place] [address] Calcium [Mass/Vol] 9.5 mg/dL Normal 8.6-10.3 [facility] Comment on above: Performed By: #### L [id number] ####[facility] ([facility]AKER)[address] [place] [address] Chloride [Moles/Vol] 104 mmol/L Normal 98-107 [facility] Comment on above: Performed By: #### L [id number] ####[facility] ([facility])[address] [place] [address] CO2 [Moles/Vol] 23 mmol/L Normal 21-31 [facility] Comment on above: Performed By: #### L [id number] ####[facility] ([facility])[address] [place] [address] Creatinine [Mass/Vol] 1.04 mg/dL Normal 0.60-1.20 [facility] Comment on above: Performed By: #### L [id number] ####[facility] ([facility])[address] [place] [address] GLOMERULAR FILTRATION RATE ML/MIN/1.73 SQ M.PREDICTED 60.8 mL/min/1.73m*2 Normal >60.0 [facility] Comment on above: Result Comment: [facility]???s estimated glomerular filtration rate (eGFR) will [...] of individuals. Performed By: #### L [id number] ####[facility] ([facility])[address] [place] [address] Glucose [Mass/Vol] 128 mg/dL High 70-100 [facility] Comment on above: Performed By: #### L [id number] ####[facility] ([facility])[address] [place] [address] Potassium [Moles/Vol] 4.5 mmol/L Normal 3.5-5.1 [facility] Comment on above: Performed By: #### L [id number] ####[facility] (BEAKER)[address] [place] [address] Sodium [Moles/Vol] 136 mmol/L Normal 136-145 [facility] Comment on above: Performed By: #### L [id number] ####[facility] ([facility]AKER)[address] [place] [place] [address] Urea nitrogen [Mass/Vol] 23 mg/dL Normal 7-25 [facility] Comment on above: Performed By: #### L [id number] ####[facility] (BEAKER)[address] [place] [address] UREA NITROGEN/CREATININE (MASS RATIO) IN SER/PLAS 22.1 Normal [facility] Comment on above: Performed By: #### L [id number] ####[facility] ([facility] [place] [address] CBCon 05-14-2024 Erythrocyte distribution width (RBC) [Ratio] 14.3 % Normal 11.5-15.0 [facility] Comment on above: Performed By: #### L [id number] ####[facility] ([facility] [place] [address] ERYTHROCYTE MEAN CORPUSCULAR HEMOGLOBIN CONCENTRATION (G/DL) BY AUTOMATED 31.9 g/dL Low 32.0-35.0 [facility] Comment on above: Performed By: #### L [id number] ####[facility] ([facility]AKER)[address] [place] [address] Hematocrit (Bld) [Volume fraction] 45.8 % Normal 36.0-48.0 [facility] Comment on above: Performed By: #### L [id number] ####[facility] (BEAKER)[address] [place] [address] Hemoglobin (Bld) [Mass/Vol] 14.6 g/dL Normal 12.0-15.0 [facility] Comment on above: Performed By: #### L [id number] ####[facility] (BEAKER)[address] [place], [place] [address] MCH (RBC) [Entitic mass] 29.1 pg Normal 27.0-33.0 [facility] Comment on above: Performed By: #### L [id number] ####[facility] ([facility])[address] [place] [place] [address] MCV (RBC) [Entitic vol] 91.4 fL Normal 82.0-98.0 [facility] Comment on above: Performed By: #### L [id number] ####[facility] ([facility])[address] [place] [place] [address] PLATELETS (10*3/UL) IN BLOOD AUTOMATED COUNT 256 10*3/uL Normal 150-400 [facility] Comment on above: Performed By: #### L [id number] ####[facility] ([facility])[address] [place] [address] RBC (Bld) [#/Vol] 5.01 10*6/uL High 3.80-5.00 [facility] Comment on above: Performed By: #### L [id number] ####[facility] ([facility])[address] [place] [place] [address] WBC (Bld) [#/Vol] 6.81 10*3/uL Normal 4.00-10.60 [facility] Comment on above: Performed By: #### L [id number] ####[facility] ([facility])[address] [place] [place] [address] DSon 05-14-2024 DS Normal [facility] POCT GLUCOSE METER UNSOLICIT ED RESULTSon 05-14-2024 Glucose [Mass/Vol] 206 mg/dL High 70-105 [facility] Comment on above: Order Comment: Waive d Testing in the ED is performed under the ED CLIA certificate #[id number]. Result Comment: [email or web address] dic Performed By: #### L [id number] ####[facility] ([facility])[address] [place] [place] [address] Glucose [Mass/Vol] 146 mg/dL High 70-105 [facility] Comment on above: Order Comment: Waive d Testing in the ED is performed under the ED CLIA certificate #[id number]. Result Comment: [email or web address] Performed By: #### L [id number] ####[facility] ([facility])[address] [place] [place] [address] 30on 05-13-2024 30 Normal [facility] 30 Normal [facility] 30 Normal [facility] BASIC METABOLIC PANELon 04-25 Anion gap [Moles/Vol] 13 mmol/L Normal 7-20 [facility] Comment on above: Performed By: #### L [id number] ####[facility] ([facility])[address] [place] [place] [address] Calcium [Mass/Vol] 9.1 mg/dL Normal 8.6-10.3 [facility] Comment on above: Performed By: #### L [id number] ####[facility] ([facility])[address] [place] [place] [address] Chloride [Moles/Vol] 99 mmol/L Normal 98-107 [facility] Comment on above: Performed By: #### L [id number] ####[facility] ([facility])[address] [place] [place] [address] CO2 [Moles/Vol] 29 mmol/L Normal 21-31 [facility] Comment on above: Performed By: #### L [id number] ####[facility] ([facility])[address] [place] [address] Creatinine [Mass/Vol] 1.29 mg/dL High 0.60-1.20 [facility] Comment on above: Performed By: #### L [id number] ####[facility] ([facility])[address] [place] [place] [address] GLOMERULAR FILTRATION RATE ML/MIN/1.73 SQ M.PREDICTED 46.9 mL/min/1.73m*2 Low >60.0 [facility] Comment on above: Result Comment: [facility]???s estimated glomerular filtration rate (eGFR) will [...] of individuals. Performed By: #### L [id number] ####[facility] ([facility])[address] [place] [address] Glucose [Mass/Vol] 135 mg/dL High 70-100 [facility] Comment on above: Performed By: #### L [id number] ####[facility] ([facility])[address] [place] [address] Potassium [Moles/Vol] 3.5 mmol/L Normal 3.5-5.1 [facility] Comment on above: Performed By: #### L [id number] ####[facility] ([facility])[address] [place] [address] Sodium [Moles/Vol] 137 mmol/L Normal 136-145 [facility] Comment on above: Performed By: #### L [id number] ####[facility] ([facility])[address] [place] [address] Urea nitrogen [Mass/Vol] 19 mg/dL Normal 7-25 [facility] Comment on above: Performed By: #### L [id number] ####[facility] ([facility])[address] [place] [address] UREA NITROGEN/CREATININE (MASS RATIO) IN SER/PLAS 14.7 Normal [facility] Comment on above: Performed By: #### L [id number] ####[facility] ([facility])[address] [place] [address] POCT GLUCOSE METER UNSOLICIT ED RESULTSon 05-13-2024 Glucose [Mass/Vol] 161 mg/dL High 70-105 [facility] Comment on above: Order Comment: Waive d Testing in the ED is performed under the ED CLIA certificate #[id number]. Result Comment: wcha se Performed By: #### L [id number] ####[facility] ([facility])[address] [place] [address] Glucose [Mass/Vol] 149 mg/dL High 70-105 [facility] Comment on above: Order Comment: Waive d Testing in the ED is performed under the ED CLIA certificate #[id number]. Result Comment: [email or web address] Performed By: #### L [id number] ####[facility] ([facility])[address] [place] [address] Glucose [Mass/Vol] 183 mg/dL High 70-105 [facility] Comment on above: Order Comment: Waive d Testing in the ED is performed under the ED CLIA certificate #[id number]. Result Comment: [email or web address] [email or web address] Performed By: #### L [id number] ####[facility] ([facility])[address] [place] [address] Glucose [Mass/Vol] 141 mg/dL High 70-105 [facility] Comment on above: Order Comment: Waive d Testing in the ED is performed under the ED CLIA certificate #[id number]. Result Comment: [email or web address] [email or web address] Performed By: #### L [id number] ####[facility] ([facility])[address] [place] [address] 30on 05-12-2024 30 Normal [facility] 30 Normal [facility] 30 Normal [facility] 30 Normal [facility] APTTon 05-12-2024 ACTIVATED PARTIAL THROMBOPLASTIN TIME IN PPP BY COAGULATION ASSAY 49.3 Seconds High 25.0-35.0 [facility] Comment on above: Order Comment: Check aPTT every 6 hours while on heparin infusion, or per protocol. Result Comment: Clin ical significance of the APTT is questionable in the presence of heparin. Performed By: #### L [id number] ####[facility] ([facility])[address] [place] [address] CBCon 05-12-2024 Erythrocyte distribution width (RBC) [Ratio] 13.9 % Normal 11.5-15.0 [facility] Comment on above: Performed By: #### L [id number] ####[facility] ([facility] [place] [place] [address] ERYTHROCYTE MEAN CORPUSCULAR HEMOGLOBIN CONCENTRATION (G/DL) BY AUTOMATED 32.5 g/dL Normal 32.0-35.0 [facility] Comment on above: Performed By: #### L [id number] ####[facility] ([facility] [place] [place] [address] Hematocrit (Bld) [Volume fraction] 41.8 % Normal 36.0-48.0 [facility] Comment on above: Performed By: #### L [id number] ####[facility] ([facility] [place] [place] [address] Hemoglobin (Bld) [Mass/Vol] 13.6 g/dL Normal 12.0-15.0 [facility] Comment on above: Performed By: #### L [id number] ####[facility] (BEAKER)[address] [place] [place] [address] MCH (RBC) [Entitic mass] 28.9 pg Normal 27.0-33.0 [facility] Comment on above: Performed By: #### L [id number] ####[facility] ([facility]AKER)[address] [place] [place] [address] MCV (RBC) [Entitic vol] 88.9 fL Normal 82.0-98.0 [facility] Comment on above: Performed By: #### L [id number] ####[facility] (BEAKER)[address] [place] [place] [address] PLATELETS (10*3/UL) IN BLOOD AUTOMATED COUNT 254 10*3/uL Normal 150-400 [facility] Comment on above: Performed By: #### L [id number] ####[facility] (BEAKER)[address] [place] [address] RBC (Bld) [#/Vol] 4.70 10*6/uL Normal 3.80-5.00 [facility] Comment on above: Performed By: #### L [id number] ####[facility] ([facility])[address] [place] [place] [address] WBC (Bld) [#/Vol] 6.18 10*3/uL Normal 4.00-10.60 [facility] Comment on above: Performed By: #### L [id number] ####[facility] ([facility])[address] [place] [place] [address] CONSULTon 05-12-2024 CONSULT Normal [facility] CONSULT Normal [facility] POCT GLUCOSE METER UNSOLICIT ED RESULTSon 05-12-2024 Glucose [Mass/Vol] 165 mg/dL High 70-105 [facility] Comment on above: Order Comment: Waive d Testing in the ED is performed under the ED CLIA certificate #[id number]. Result Comment: wcha se Performed By: #### L [id number] ####[facility] ([facility])[address] [place] [address] Glucose [Mass/Vol] 183 mg/dL High 70-105 [facility] Comment on above: Order Comment: Waive d Testing in the ED is performed under the ED CLIA certificate #[id number]. Result Comment: [email or web address] Performed By: #### L [id number] ####[facility] ([facility])[address] [place] [address] Glucose [Mass/Vol] 152 mg/dL High 70-105 [facility] Comment on above: Order Comment: Waive d Testing in the ED is performed under the ED CLIA certificate #[id number]. Result Comment: bflo od Performed By: #### L [id number] ####[facility] ([facility])[address] [place] [address] Glucose [Mass/Vol] 189 mg/dL High 70-105 [facility] Comment on above: Order Comment: Waive d Testing in the ED is performed under the ED CLIA certificate #[id number]. Result Comment: bflo od Performed By: #### L [id number] ####[facility] ([facility])[address] [place] [address] RESPIRATORY VIRUS PCR PANELo n 05-12-2024 ADENOVIRUS DETECTION BY PCR Not detected Normal Not Detected [facility] Comment on above: Order Comment: Testi ng methodology is a multiplexed nucleic acid test intended for the simultaneous qualitative detection and differentiation of nucleic acids from multiple viral and bacterial respiratory organisms in nasopharyngeal swabs (NIPPLE THREADER). Performed By: #### L [id number] ####[facility] ([facility])[address] [place] [address] B. PARAPERTUSSIS DNA Not detected Normal Not Detected [facility] Comment on above: Order Comment: Testi ng methodology is a multiplexed nucleic acid test intended for the simultaneous qualitative detection and differentiation of nucleic acids from multiple viral and bacterial respiratory organisms in nasopharyngeal swabs (NIPPLE THREADER). Performed By: #### L [id number] ####[facility] ([facility])[address] [place] [address] BORDETELLA PERTUSSIS DNA PRESENCE IN UNSPECIFIED SPECIMEN BY LA* Not detected Normal Not Detected [facility] Comment on above: Order Comment: Testi ng methodology is a multiplexed nucleic acid test intended for the simultaneous qualitative detection and differentiation of nucleic acids from multiple viral and bacterial respiratory organisms in nasopharyngeal swabs (NIPPLE THREADER). Performed By: #### L [id number] ####[facility] ([facility])[address] [place] [address] CHLAMYDOPHILA PNEUMONIAE Not detected Normal Not Detected [facility] Comment on above: Order Comment: Testi ng methodology is a multiplexed nucleic acid test intended for the simultaneous qualitative detection and differentiation of nucleic acids from multiple viral and bacterial respiratory organisms in nasopharyngeal swabs (NIPPLE THREADER). Performed By: #### L [id number] ####[facility] ([facility])[address] [place] [address] CORONAVIRUS [id number] Not detected Normal Not Detected [facility] Comment on above: Order Comment: Testi ng methodology is a multiplexed nucleic acid test intended for the simultaneous qualitative detection and differentiation of nucleic acids from multiple viral and bacterial respiratory organisms in nasopharyngeal swabs (NIPPLE THREADER). Performed By: #### L [id number] ####[facility] ([facility])[address] [place] [address] CORONAVIRUS [id number] Not detected Normal Not Detected [facility] Comment on above: Order Comment: Testi ng methodology is a multiplexed nucleic acid test intended for the simultaneous qualitative detection and differentiation of nucleic acids from multiple viral and bacterial respiratory organisms in nasopharyngeal swabs (NIPPLE THREADER). Performed By: #### L [id number] ####[facility] ([facility])[address] [place] [address] CORONAVIRUS [id number] Not detected Normal Not Detected [facility] Comment on above: Order Comment: Testi ng methodology is a multiplexed nucleic acid test intended for the simultaneous qualitative detection and differentiation of nucleic acids from multiple viral and bacterial respiratory organisms in nasopharyngeal swabs (NIPPLE THREADER). Performed By: #### L [id number] ####[facility] ([facility])[address] [place] [address] CORONAVIRUS [id number] Not detected Normal Not Detected [facility] Comment on above: Order Comment: Testi ng methodology is a multiplexed nucleic acid test intended for the simultaneous qualitative detection and differentiation of nucleic acids from multiple viral and bacterial respiratory organisms in nasopharyngeal swabs (NIPPLE THREADER). Performed By: #### L [id number] ####[facility] ([facility])[address] [place] [address] HUMAN METAPNEUMOVIRUS Not detected Normal Not Detected [facility] Comment on above: Order Comment: Testi ng methodology is a multiplexed nucleic acid test intended for the simultaneous qualitative detection and differentiation of nucleic acids from multiple viral and bacterial respiratory organisms in nasopharyngeal swabs (NIPPLE THREADER). Performed By: #### L [id number] ####[facility] ([facility])[address] [place] [address] HUMAN RHINOVIRUS+ENTEROVIRUS Not detected Normal Not Detected [facility] Comment on above: Order Comment: Testi ng methodology is a multiplexed nucleic acid test intended for the simultaneous qualitative detection and differentiation of nucleic acids from multiple viral and bacterial respiratory organisms in nasopharyngeal swabs (NIPPLE THREADER). Performed By: #### L [id number] ####[facility] ([facility])[address] [place] [address] INFLUENZA A Not detected Normal Not Detected [facility] Comment on above: Order Comment: Testi ng methodology is a multiplexed nucleic acid test intended for the simultaneous qualitative detection and differentiation of nucleic acids from multiple viral and bacterial respiratory organisms in nasopharyngeal swabs (NIPPLE THREADER). Performed By: #### L [id number] ####[facility] ([facility])[address] [place] [address] INFLUENZA B Not detected Normal Not Detected [facility] Comment on above: Order Comment: Testi ng methodology is a multiplexed nucleic acid test intended for the simultaneous qualitative detection and differentiation of nucleic acids from multiple viral and bacterial respiratory organisms in nasopharyngeal swabs (NIPPLE THREADER). Performed By: #### L [id number] ####[facility] ([facility])[address] [place] [address] MYCOPLASMA PNEUMONIAE Not detected Normal Not Detected [facility] Comment on above: Order Comment: Testi ng methodology is a multiplexed nucleic acid test intended for the simultaneous qualitative detection and differentiation of nucleic acids from multiple viral and bacterial respiratory organisms in nasopharyngeal swabs (NIPPLE THREADER). Performed By: #### L [id number] ####[facility] ([facility])[address] [place] [address] PARAINFLUENZA 1 Not detected Normal Not Detected [facility] Comment on above: Order Comment: Testi ng methodology is a multiplexed nucleic acid test intended for the simultaneous qualitative detection and differentiation of nucleic acids from multiple viral and bacterial respiratory organisms in nasopharyngeal swabs (NIPPLE THREADER). Performed By: #### L [id number] ####[facility] ([facility])[address] [place] [address] PARAINFLUENZA 2 Not detected Normal Not Detected [facility] Comment on above: Order Comment: Testi ng methodology is a multiplexed nucleic acid test intended for the simultaneous qualitative detection and differentiation of nucleic acids from multiple viral and bacterial respiratory organisms in nasopharyngeal swabs (NIPPLE THREADER). Performed By: #### L [id number] ####[facility] ([facility])[address] [place] [address] PARAINFLUENZA 3 Not detected Normal Not Detected [facility] Comment on above: Order Comment: Testi ng methodology is a multiplexed nucleic acid test intended for the simultaneous qualitative detection and differentiation of nucleic acids from multiple viral and bacterial respiratory organisms in nasopharyngeal swabs (NIPPLE THREADER). Performed By: #### L [id number] ####[facility] ([facility])[address] [place] [address] PARAINFLUENZA 4 Not detected Normal Not Detected [facility] Comment on above: Order Comment: Testi ng methodology is a multiplexed nucleic acid test intended for the simultaneous qualitative detection and differentiation of nucleic acids from multiple viral and bacterial respiratory organisms in nasopharyngeal swabs (NIPPLE THREADER). Performed By: #### L [id number] ####[facility] ([facility])[address] [place] [address] RESP SYNCYTIAL VIRUS Not detected Normal Not Detected [facility] Comment on above: Order Comment: Testi ng methodology is a multiplexed nucleic acid test intended for the simultaneous qualitative detection and differentiation of nucleic acids from multiple viral and bacterial respiratory organisms in nasopharyngeal swabs (NIPPLE THREADER). Performed By: #### L [id number] ####[facility] ([facility])[address] [place] [address] SARS-CoV-2 (COVID-19) RNA CITLALY+probe Ql (Unsp spec) Not detected Normal Not Detected [facility] Comment on above: Order Comment: Testi ng methodology is a multiplexed nucleic acid test intended for the simultaneous qualitative detection and differentiation of nucleic acids from multiple viral and bacterial respiratory organisms in nasopharyngeal swabs (NIPPLE THREADER). Performed By: #### L [id number] ####[facility] ([facility])[address] [place] [address] TROPONIN Ion 05-12-2024 Troponin I.cardiac [Mass/Vol] 0.03 ng/mL Normal 0.00-0.04 [facility] Comment on above: Performed By: #### L [id number] ####[facility] ([facility])[address] [place] [address] Troponin I.cardiac [Mass/Vol] 0.04 ng/mL Normal 0.00-0.04 [facility] Comment on above: Performed By: #### L [id number] ####[facility] ([facility])[address] [place] [address] URINALYSIS MICROSCOPIC WITH REFLEX CULTUREon 05-12-2024 RBC (#/HPF) IN URINE SEDIMENT 3-5 Abnormal None Seen, 0-2 [facility] Comment on above: Performed By: #### L [id number] ####[facility] ([facility])[address] [place] [address] SQUAMOUS EPITHELIAL CELLS (#/LPF) IN URINE SEDIMENT Moderate Abnormal None Seen, Occasional , Few [facility] Comment on above: Performed By: #### L [id number] ####[facility] ([facility] [place] [address] WBC (LEUKOCYTE) (#/HPF) IN URINE SEDIMENT 6-10 Abnormal None Seen, 0-2 [facility] Comment on above: Performed By: #### L [id number] ####[facility] ([facility])[address] [place] [address] URINALYSIS WITH REFLEX CULTU REon 05-12-2024 BILIRUBIN, TOTAL PRESENCE IN URINE Negative Normal Negative [facility] Comment on above: Performed By: #### L [id number] ####[facility] ([facility] [place] [address] Clarity (U) Clear Normal Clear [facility] Comment on above: Performed By: #### L [id number] ####[facility] ([facility])[address] [place] [address] Color (U) Light-Yellow Normal Colorless, Yellow, Light-[place] ow [facility] Comment on above: Performed By: #### L [id number] ####[facility] ([facility])[address] [place] [address] GLUCOSE (MG/DL) IN URINE Normal Normal Normal [facility] Comment on above: Performed By: #### L [id number] ####[facility] ([facility])[address] [place] [address] HEMOGLOBIN PRESENCE IN URINE Negative Normal Negative [facility] Comment on above: Performed By: #### L [id number] ####[facility] ([facility])[address] [place] [place] [address] Ketones Ql (U) Negative Normal Negative [facility] Comment on above: Performed By: #### L [id number] ####[facility] ([facility])[address] [place] [place] [address] LEUKOCYTE ESTERASE PRESENCE IN URINE BY TEST STRIP Small Abnormal Negative [facility] Comment on above: Performed By: #### L [id number] ####[facility] ([facility])[address] [place] [place] [address] NITRITE PRESENCE IN URINE Negative Normal Negative [facility] Comment on above: Performed By: #### L [id number] ####[facility] ([facility])[address] [place] [place] [address] pH (U) 6.0 [pH] Normal 5.0-8.0 [facility] Comment on above: Performed By: #### L [id number] ####[facility] ([facility])[address] [place] [place] [address] Protein (U) [Mass/Vol] Negative Normal Negative [facility] Comment on above: Performed By: #### L [id number] ####[facility] ([facility])[address] [place] [place] [address] Specific gravity (U) [Rel density] 1.015 Normal 1.010-1.03 0 [facility] Comment on above: Performed By: #### L [id number] ####[facility] ([facility])[address] [place] [place] [address] UROBILINOGEN (MG/DL) IN URINE Normal Normal Normal [facility] Comment on above: Performed By: #### L [id number] ####[facility] ([facility])[address] [place] [place] [address] APTTon 05-11-2024 ACTIVATED PARTIAL THROMBOPLASTIN TIME IN PPP BY COAGULATION ASSAY 27.4 Seconds Normal 25.0-35.0 [facility] Comment on above: Order Comment: Basel ine aPTT before initiating heparin infusion. Result Comment: Clin ical significance of the APTT is questionable in the presence of heparin. Performed By: #### L [id number] ####[facility] ([employer])[address] [place] [address] Activated partial thrombopla stin time (aPTT) in platelet poor plasma by coagulation aon 05-11-2024 aPTT Coag (PPP) [Time] Activated partial thromboplastin time (aPTT) in platelet poor plasma by coagulation a 22.3-36.2 [facility] B-TYPE NATRIURETIC PEPTIDEon 05-11-2024 Natriuretic peptide B (Bld) [Mass/Vol] 537 pg/mL High 0-100 [facility] Comment on above: Performed By: #### L [id number] ####[facility] ([facility])[address] [place] [address] Basophils Auto (Bld) [#/Vol] on 05-11-2024 Basophils (Bld) [#/Vol] Automated basophil count 0.0-0.1 [facility] Basophils/100 WBC Auto (Bld) on 05-11-2024 Basophils/100 WBC (Bld) Automated basophil % 0.2-2.0 [facility] CBC WITH AUTO DIFFERENTIALon 05-11-2024 Basophils (Bld) [#/Vol] 0.10 10*3/uL Normal 0.00-0.20 [facility] Comment on above: Performed By: #### L [id number] ####[facility] ([facility])[address] [place] [address] Basophils/100 WBC (Bld) 1.3 % High 0.0-1.0 [facility] Comment on above: Performed By: #### L [id number] ####[facility] ([facility])[address] [place] [address] Eosinophils (Bld) [#/Vol] 0.31 10*3/uL Normal 0.00-0.50 [facility] Comment on above: Performed By: #### L [id number] ####[facility] ([facility])[address] [place] [address] Eosinophils/100 WBC (Bld) 4.0 % Normal 0.0-6.0 [facility] Comment on above: Performed By: #### L [id number] ####[facility] ([facility])[address] [place] [place] [address] Erythrocyte distribution width (RBC) [Ratio] 13.9 % Normal 11.5-15.0 [facility] Comment on above: Performed By: #### L [id number] ####[facility] ([facility])[address] [place] [place] [address] ERYTHROCYTE MEAN CORPUSCULAR HEMOGLOBIN CONCENTRATION (G/DL) BY AUTOMATED 33.7 g/dL Normal 32.0-35.0 [facility] Comment on above: Performed By: #### L [id number] ####[facility] ([facility])[address] [place] [place] [address] Hematocrit (Bld) [Volume fraction] 41.6 % Normal 36.0-48.0 [facility] Comment on above: Performed By: #### L [id number] ####[facility] ([facility])[address] [place] [place] [address] Hemoglobin (Bld) [Mass/Vol] 14.0 g/dL Normal 12.0-15.0 [facility] Comment on above: Performed By: #### L [id number] ####[facility] ([facility] [place] [place] [address] Immature granulocytes (Bld) [#/Vol] 0.03 10*3/uL Normal 0.00-0.20 [facility] Comment on above: Performed By: #### L [id number] ####[facility] ([facility])[address] [place] [place] [address] Immature granulocytes/100 WBC (Bld) 0.4 % Normal 0.0-1.0 [facility] Comment on above: Performed By: #### L [id number] ####[facility] ([facility])[address] [place] [place] [address] Lymphocytes (Bld) [#/Vol] 2.25 10*3/uL Normal 1.20-4.00 [facility] Comment on above: Performed By: #### L [id number] ####[facility] ([facility] [place] [place] [address] Lymphocytes/100 WBC (Bld) 29.3 % Normal 20.0-45.0 [facility] Comment on above: Performed By: #### L [id number] ####[facility] ([facility])[address] [place] [place] [address] MCH (RBC) [Entitic mass] 28.9 pg Normal 27.0-33.0 [facility] Comment on above: Performed By: #### L [id number] ####[facility] ([facility])[address] [place] [place] [address] MCV (RBC) [Entitic vol] 86.0 fL Normal 82.0-98.0 [facility] Comment on above: Performed By: #### L [id number] ####[facility] ([facility] [place] [address] Monocytes (Bld) [#/Vol] 0.50 10*3/uL Normal 0.10-1.00 [facility] Comment on above: Performed By: #### L [id number] ####[facility] ([facility] [place] [place] [address] Monocytes/100 WBC (Bld) 6.5 % Normal 5.0-12.0 [facility] Comment on above: Performed By: #### L [id number] ####[facility] ([facility])[address] [place] [place], [place] [address] Neutrophils (Bld) [#/Vol] 4.50 10*3/uL Normal 1.60-7.60 [facility] Comment on above: Performed By: #### L [id number] ####[facility] ([facility])[address] [place] [place] [address] Neutrophils/100 WBC (Bld) 58.5 % Normal 40.0-72.0 [facility] Comment on above: Performed By: #### L [id number] ####[facility] ([facility])[address] [place] [place] [address] NRBC (PER 100 WBCS) BY AUTOMATED COUNT 0.0 % Normal 0 [facility] Comment on above: Performed By: #### L [id number] ####[facility] ([facility])[address] [place] [place] [address] PLATELETS (10*3/UL) IN BLOOD AUTOMATED COUNT 270 10*3/uL Normal 150-400 [facility] Comment on above: Performed By: #### L [id number] ####[facility] ([facility])[address] [place] [place] [address] RBC (Bld) [#/Vol] 4.84 10*6/uL Normal 3.80-5.00 [facility] Comment on above: Performed By: #### L [id number] ####[facility] ([facility])[address] [place] [place] [address] WBC (Bld) [#/Vol] 7.69 10*3/uL Normal 4.00-10.60 [facility] Comment on above: Performed By: #### L [id number] ####[facility] ([facility])[address] [place] [place] [address] COMPREHENSIVE METABOLIC PANE Kirit 05-11-2024 Albumin [Mass/Vol] 4.1 g/dL Normal 3.5-5.7 [facility] Comment on above: Performed By: #### L [id number] ####[facility] ([facility])[address] [place] [address] ALP [Catalytic activity/Vol] 128 U/L High 34-104 [facility] Comment on above: Performed By: #### L [id number] ####[facility] ([facility])[address] [place] [address] ALT [Catalytic activity/Vol] 13 U/L Normal 7-52 [facility] Comment on above: Performed By: #### L [id number] ####[facility] ([facility])[address] [place] [address] Anion gap [Moles/Vol] 13 mmol/L Normal 7-20 [facility] Comment on above: Performed By: #### L [id number] ####[facility] ([facility])[address] [place] [place] [address] AST [Catalytic activity/Vol] 18 U/L Normal 13-39 [facility] Comment on above: Performed By: #### L [id number] ####[facility] ([facility])[address] [place] [place] [address] Bilirubin [Mass/Vol] 0.4 mg/dL Normal 0.3-1.0 [facility] Comment on above: Performed By: #### L [id number] ####[facility] ([facility])[address] [place] [place] [address] Calcium [Mass/Vol] 8.9 mg/dL Normal 8.6-10.3 [facility] Comment on above: Performed By: #### L [id number] ####[facility] ([facility])[address] [place] [place] [address] Chloride [Moles/Vol] 98 mmol/L Normal 98-107 [facility] Comment on above: Performed By: #### L [id number] ####[facility] ([facility])[address] [place] [place] [address] CO2 [Moles/Vol] 27 mmol/L Normal 21-31 [facility] Comment on above: Performed By: #### L [id number] ####[facility] ([facility])[address] [place] [place] [address] Creatinine [Mass/Vol] 0.98 mg/dL Normal 0.60-1.20 [facility] Comment on above: Performed By: #### L [id number] ####[facility] ([facility])[address] [place] [place] [address] GLOMERULAR FILTRATION RATE ML/MIN/1.73 SQ M.PREDICTED 65.3 mL/min/1.73m*2 Normal >60.0 [facility] Comment on above: Result Comment: [facility]???s estimated glomerular filtration rate (eGFR) will [...] of individuals. Performed By: #### L [id number] ####[facility] ([facility])[address] [place] [address] Glucose [Mass/Vol] 151 mg/dL High 70-100 [facility] Comment on above: Performed By: #### L [id number] ####[facility] ([facility])[address] [place] [address] Potassium [Moles/Vol] 3.8 mmol/L Normal 3.5-5.1 [facility] Comment on above: Performed By: #### L [id number] ####[facility] ([facility])[address] [place] [address] Protein [Mass/Vol] 7.0 g/dL Normal 6.0-8.3 [facility] Comment on above: Performed By: #### L [id number] ####[facility] ([facility])[address] [place] [address] Sodium [Moles/Vol] 134 mmol/L Low 136-145 [facility] Comment on above: Performed By: #### L [id number] ####[facility] ([facility])[address] [place] [address] Urea nitrogen [Mass/Vol] 16 mg/dL Normal 7-25 [facility] Comment on above: Performed By: #### L [id number] ####[facility] ([facility]ER)[address] [place] [address] UREA NITROGEN/CREATININE (MASS RATIO) IN SER/PLAS 16.3 Normal [facility] Comment on above: Performed By: #### L [id number] ####[facility] (BEAKER)[address] [place] [address] Eosinophils/100 WBC Auto (Bl d)on 05-11-2024 Eosinophils/100 WBC (Bld) Automated eosinophil % 0.9-7.0 [facility] Erythrocyte distribution wid th Auto (RBC) [Ratio]on 05-11-2024 Erythrocyte distribution width (RBC) [Ratio] Erythrocyte distribution width [Ratio] by Automated count 11.0-15.0 [facility] Estimated glomerular filtrat ion rate (GFR) non- Americanon 05-11-2024 GFR/1.73 sq M.predicted among non-blacks MDRD (S/P/Bld) [Vol rate/Area] Estimated glomerular filtration rate (GFR) non- Low >=60 mL/min/1.[address] [facility] HPon 05-11-2024 [facility] Hematocrit Auto (Bld) [Volum e fraction]on 05-11-2024 Hematocrit (Bld) [Volume fraction] Hematocrit [Volume Fraction] of Blood by Automated count 36.0-48.0 [facility] Hemoglobin [Mass/volume] in Bloodon 05-11-2024 Hemoglobin (Bld) [Mass/Vol] Hemoglobin [Mass/volume] in Blood 12.0-16.0 [facility] INR in Platelet poor plasma by Coagulation assayon 05-11-2024 INR Coag (PPP) [Relative time] INR in Platelet poor plasma by Coagulation assay [facility] Comment on above: DESIRED INR:2.0-3.0 CONDITIONS NOT LISTED BELOW2.5-3.5 FOR PROSTHETIC HEART VALVE REPLACEMENT2.5-3.5 RECURRENT THROMBOSIS Laboratory - Chemistry and C hemistry - challengeon 05-11-2024 Calcium [Mass/Vol] 9.2 mg/dL 8.5-10.1 [facility] Chloride [Moles/Vol] 103 mmol/L 98-107 [facility] CO2 [Moles/Vol] 30.0 mmol/L 21.0-32.0 [facility] Creatinine [Mass/Vol] 1.17 mg/dL High 0.55-1.02 [facility] GFR/1.73 sq M.predicted MDRD (S/P/Bld) [Vol rate/Area] 57 mL/min/{1.73_m2} Low >=60 mL/min/1.[address] [facility] Glucose [Mass/Vol] 127 mg/dL High 74-106 [facility] Potassium [Moles/Vol] 3.7 mmol/L 3.5-5.1 [facility] Sodium [Moles/Vol] 139 mmol/L 136-145 [facility] Urea nitrogen [Mass/Vol] 15.0 mg/dL 7.0-18.0 [facility] Urea nitrogen/Creatinine [Mass ratio] 12.8 mg/mg [facility] Laboratory - Coagulationon 0 05-11-2024 aPTT Coag (Bld) [Time] 36.6 s Critically low 43.5-61.5 [facility] Comment on above: RESULTS CALLED TO GABBI ESPINOSA RN @BY Ruby Keith at [facility] Laboratory - Hematology and Cell countson 05-11-2024 Immature granulocytes/100 WBC (Bld) 0.3 % 0.0-0.5 [facility] Leukocytes [#/volume] correc [place] for nucleated erythrocytes in Blood by Automated counon 05-11-2024 WBC corrected for nucl RBC Auto (Bld) [#/Vol] Leukocytes [#/volume] corrected for nucleated erythrocytes in Blood by Automated coun 4.0-11.0 [facility] Lymphocytes Auto (Bld) [#/Vo l]on 05-11-2024 Lymphocytes (Bld) [#/Vol] Lymphocytes [#/volume] in Blood by Automated count 1.2-3.8 [facility] Lymphocytes/100 WBC Auto (Bl d)on 05-11-2024 Lymphocytes/100 WBC (Bld) Lymphocytes/100 leukocytes in Blood by Automated count 20.5-60.0 [facility] MAGNESIUMon 05-11-2024 Magnesium [Mass/Vol] 2.2 mg/dL Normal 1.9-2.7 [facility] Comment on above: Performed By: #### L [id number] ####[facility] (BEAKER)[address] [place] [address] MCH Auto (RBC) [Entitic mass ]on 05-11-2024 MCH (RBC) [Entitic mass] MCH [Entitic mass] by Automated count 26.7-34.0 [facility] MCHC Auto (RBC) [Mass/Vol]on 05-11-2024 MCHC (RBC) [Mass/Vol] MCHC [Mass/volume] by Automated count 29.9-35.2 [facility] MCV Auto (RBC) [Entitic vol] on 05-11-2024 MCV (RBC) [Entitic vol] MCV [Entitic volume] by Automated count 81.0-99.0 [facility] Monocytes Auto (Bld) [#/Vol] on 05-11-2024 Monocytes (Bld) [#/Vol] Automated blood monocyte count 0.3-0.8 [facility] Monocytes/100 WBC Auto (Bld) on 05-11-2024 Monocytes/100 WBC (Bld) Automated monocyte % 1.7-12.0 [facility] Neutrophils Auto (Bld) [#/Vo l]on 05-11-2024 Neutrophils (Bld) [#/Vol] Neutrophils [#/volume] in Blood by Automated count 1.4-6.5 [facility] Neutrophils/100 WBC Auto (Bl d)on 05-11-2024 Neutrophils/100 WBC (Bld) Automated neutrophil % 43.0-75.0 [facility] No Panel Informationon 05-11 Troponin I High Sensitivity 1036.8 pg/mL Critically high 4.0-51.3 [facility] Comment on above: RESULTS CALLED TO [...] Eosinophils # (Auto) 0.4 10 3/uL 0.0-0.7 [facility] Immature Granulocyte # (Auto) 0.02 10 3/uL 0.00-0.03 [facility] PHOSPHORUSon 05-11-2024 Magnesium [Mass/Vol] 3.1 mg/dL Normal 2.5-5.0 [facility] Comment on above: Performed By: #### L [id number] ####[facility] (BEAKER)[address] [place] [address] POCT GLUCOSE METER UNSOLICIT ED RESULTSon 05-11-2024 Glucose [Mass/Vol] 163 mg/dL High 70-105 [facility] Comment on above: Order Comment: Waive d Testing in the ED is performed under the ED CLIA certificate #[id number]. Result Comment: mlad d3 Performed By: #### L [id number] ####[facility] (BEAKER)[address] [place] [address] PROTIME-INRon 05-11-2024 INR IN PPP BY COAGULATION ASSAY 0.99 Normal 0.90-1.10 [facility] Comment on above: Result Comment: ACCC [...] CHEST 1995;[id number]. Performed By: #### L [id number] ####[facility] (BEAKER)[address] [place] [address] PROTHROMBIN TIME (PT) IN PPP BY COAGULATION ASSAY 13.1 Seconds Normal 12.3-14.8 [facility] Comment on above: Performed By: #### L [id number] ####[facility] (BEAKER)[address] [place] [address] Platelet mean volume Auto (B ld) [Entitic vol]on 05-11-2024 Platelet mean volume (Bld) [Entitic vol] Platelet mean volume [Entitic volume] in Blood by Automated count 9.5-13.5 [facility] Platelets Auto (Bld) [#/Vol] on 05-11-2024 Platelets (Bld) [#/Vol] Platelets [#/volume] in Blood by Automated count 150-450 [facility] Prothrombin time (PT)on 04-24 PT Coag (PPP) [Time] Prothrombin time (PT) 9.0- 11.6 [facility] RBC Auto (Bld) [#/Vol]on RBC (Bld) [#/Vol] Erythrocytes [#/volu me] in Blood by Automated count 4.20-5.40 [facility] Serum or plasma anion gap de terminationon 05-11-2024 Anion gap [Moles/Vol] Serum or plasma an ion gap determination [facility] TROPONIN Ion 05-11-2024 Troponin I.cardiac [Mass/Vol] 0.06 ng/mL High 0.00-0.04 [facility] Comment on above: Performed By: #### L [id number] ####[facility] (BEAKER)[address] [place] [address] Basophils Auto (Bld) [#/Vol] on 05-10-2024 Basophils (Bld) [#/Vol] Automated basophil count 0.0-0.1 [facility] Basophils/100 WBC Auto (Bld) on 05-10-2024 Basophils/100 WBC (Bld) Automated basophil % 0.2-2.0 [facility] Eosinophils/100 WBC Auto (Bl d)on 05-10-2024 Eosinophils/100 WBC (Bld) Automated eosinophil % 0.9-7.0 [facility] Erythrocyte distribution wid th Auto (RBC) [Ratio]on 05-10-2024 Erythrocyte distribution width (RBC) [Ratio] Erythrocyte distribution width [Ratio] by Automated count 11.0-15.0 [facility] Estimated glomerular filtrat ion rate (GFR) non- Americanon 05-10-2024 GFR/1.73 sq M.predicted among non-blacks MDRD (S/P/Bld) [Vol rate/Area] Estimated glomerular filtration rate (GFR) non- Low >=60 mL/min/1.[address] [facility] Globulin Calc (S) [Mass/Vol] on 05-10-2024 Globulin (S) [Mass/Vol] Serum globulin measurement by calculation (mass/volume) [facility] Hematocrit Auto (Bld) [Volum e fraction]on 05-10-2024 Hematocrit (Bld) [Volume fraction] Hematocrit [Volume Fraction] of Blood by Automated count 36.0-48.0 [facility] Hemoglobin [Mass/volume] in Bloodon 05-10-2024 Hemoglobin (Bld) [Mass/Vol] Hemoglobin [Mass/volume] in Blood 12.0-16.0 [facility] Laboratory - Chemistry and C hemistry - challengeon 05-10-2024 Albumin [Mass/Vol] 3.5 g/dL 3.4-5.0 [facility] ALP [Catalytic activity/Vol] 144 U/L High 46-116 [facility] ALT [Catalytic activity/Vol] 21 U/L 14-59 [facility] AST [Catalytic activity/Vol] 22 U/L 15-37 [facility] Bilirubin [Mass/Vol] 0.5 mg/dL 0.2-1.0 [facility] Calcium [Mass/Vol] 9.3 mg/dL 8.5-10.1 [facility] Chloride [Moles/Vol] 102 mmol/L 98-107 [facility] CO2 [Moles/Vol] 29.0 mmol/L 21.0-32.0 [facility] Creatinine [Mass/Vol] 1.17 mg/dL High 0.55-1.02 [facility] GFR/1.73 sq M.predicted MDRD (S/P/Bld) [Vol rate/Area] 57 mL/min/{1.73_m2} Low >=60 mL/min/1.[address] [facility] Glucose [Mass/Vol] 142 mg/dL High 74-106 [facility] Natriuretic peptide B (Bld) [Mass/Vol] 1140.0 pg/mL High <=900.0 [facility] Potassium [Moles/Vol] 4.4 mmol/L 3.5-5.1 [facility] Protein [Mass/Vol] 7.4 g/dL 6.4-8.2 [facility] Sodium [Moles/Vol] 138 mmol/L 136-145 [facility] Urea nitrogen [Mass/Vol] 14.0 mg/dL 7.0-18.0 [facility] Urea nitrogen/Creatinine [Mass ratio] 12.0 mg/mg [facility] Laboratory - Hematology and Cell countson 05-10-2024 Immature granulocytes/100 WBC (Bld) 0.4 % 0.0-0.5 [facility] Leukocytes [#/volume] correc chantelle for nucleated erythrocytes in Blood by Automated counon 05-10-2024 WBC corrected for nucl RBC Auto (Bld) [#/Vol] Leukocytes [#/volume] corrected for nucleated erythrocytes in Blood by Automated coun 4.0-11.0 [facility] Lymphocytes Auto (Bld) [#/Vo l]on 05-10-2024 Lymphocytes (Bld) [#/Vol] Lymphocytes [#/volume] in Blood by Automated count 1.2-3.8 [facility] Lymphocytes/100 WBC Auto (Bl d)on 05-10-2024 Lymphocytes/100 WBC (Bld) Lymphocytes/100 leukocytes in Blood by Automated count Low 20.5-60.0 [facility] MCH Auto (RBC) [Entitic mass ]on 05-10-2024 MCH (RBC) [Entitic mass] MCH [Entitic mass] by Automated count 26.7-34.0 [facility] MCHC Auto (RBC) [Mass/Vol]on 05-10-2024 MCHC (RBC) [Mass/Vol] MCHC [Mass/volume] by Automated count 29.9-35.2 [facility] MCV Auto (RBC) [Entitic vol] on 05-10-2024 MCV (RBC) [Entitic vol] MCV [Entitic volume] by Automated count 81.0-99.0 [facility] Monocytes Auto (Bld) [#/Vol] on 05-10-2024 Monocytes (Bld) [#/Vol] Automated blood monocyte count 0.3-0.8 [facility] Monocytes/100 WBC Auto (Bld) on 05-10-2024 Monocytes/100 WBC (Bld) Automated monocyte % 1.7-12.0 [facility] Neutrophils Auto (Bld) [#/Vo l]on 05-10-2024 Neutrophils (Bld) [#/Vol] Neutrophils [#/volume] in Blood by Automated count 1.4-6.5 [facility] Neutrophils/100 WBC Auto (Bl d)on 05-10-2024 Neutrophils/100 WBC (Bld) Automated neutrophil % 43.0-75.0 [facility] No Panel Informationon 05-10 Troponin I High Sensitivity 641.2 pg/mL Critically high 4.0-51.3 [facility] Comment on above: RESULTS CALLED TO [...] Eosinophils # (Auto) 0.4 10 3/uL 0.0-0.7 [facility] Immature Granulocyte # (Auto) 0.03 10 3/uL 0.00-0.03 [facility] Platelet mean volume Auto (B ld) [Entitic vol]on 05-10-2024 Platelet mean volume (Bld) [Entitic vol] Platelet mean volume [Entitic volume] in Blood by Automated count 9.5-13.5 [facility] Platelets Auto (Bld) [#/Vol] on 05-10-2024 Platelets (Bld) [#/Vol] Platelets [#/volume] in Blood by Automated count 150-450 [facility] RBC Auto (Bld) [#/Vol]on RBC (Bld) [#/Vol] Erythrocytes [#/volu me] in Blood by Automated count 4.20-5.40 [facility] Serum or plasma albumin/glob ulin mass ratioon 05-10-2024 Albumin/Globulin [Mass ratio] Serum or plasma albumin/globulin mass ratio [facility] Serum or plasma anion gap de terminationon 05-10-2024 Anion gap [Moles/Vol] Serum or plasma an ion gap determination [facility] 29on 02-19-2024 29 Addendum created 42 by Mario Bermudez MD Delete clinical note Normal [facility] 29 Addendum created 41 by Mario Bermudez MD Delete clinical note Normal [facility] 29on 01-22-2024 29 Addended by: PALMIRA CAUSEY on: 01/22/2024 02:27 PM Modules accepted: Orders Normal [facility] Orders Onlyon 01-22-2024 Orders Only Normal [facility] BASIC METABOLIC PANELon 10-2 Anion gap [Moles/Vol] 10 mmol/L Normal 7-20 [facility] Comment on above: Performed By: #### L [id number] ####[facility] (BEAKER)[address] [place] [address] Calcium [Mass/Vol] 8.6 mg/dL Normal 8.6-10.3 [facility] Comment on above: Performed By: #### L [id number] ####[facility] (BEAKER)[address] [place] [address] Chloride [Moles/Vol] 104 mmol/L Normal 98-107 [facility] Comment on above: Performed By: #### L [id number] ####[facility] [place] [place] [address] CO2 [Moles/Vol] 29 mmol/L Normal 21-31 [facility] Comment on above: Performed By: #### L [id number] ####[facility] ([facility])[address] [place] [place] [address] Creatinine [Mass/Vol] 0.91 mg/dL Normal 0.60-1.20 [facility] Comment on above: Performed By: #### L [id number] ####[facility] ([facility])[address] [place] [place] [address] GLOMERULAR FILTRATION RATE ML/MIN/1.73 SQ M.PREDICTED 71.3 mL/min/1.73m*2 Normal >60.0 [facility] Comment on above: Result Comment: [facility]???s estimated glomerular filtration rate (eGFR) will [...] of individuals. Performed By: #### L [id number] ####[facility] ([facility])[address] [place] [place] [address] Glucose [Mass/Vol] 150 mg/dL High 70-100 [facility] Comment on above: Performed By: #### L [id number] ####[facility] ([facility] [place] [place] [address] Potassium [Moles/Vol] 4.1 mmol/L Normal 3.5-5.1 [facility] Comment on above: Performed By: #### L [id number] ####[facility] ([facility] [place] [address] Sodium [Moles/Vol] 139 mmol/L Normal 136-145 [facility] Comment on above: Performed By: #### L [id number] ####[facility] ([facility] [place] [address] Urea nitrogen [Mass/Vol] 25 mg/dL Normal 7-25 [facility] Comment on above: Performed By: #### L [id number] ####[facility] ([facility])[address] [place] [address] UREA NITROGEN/CREATININE (MASS RATIO) IN SER/PLAS 27.5 Normal [facility] Comment on above: Performed By: #### L [id number] ####[facility] ([facility])[address] [place] [address] CBCon 01-12-2024 Erythrocyte distribution width (RBC) [Ratio] 15.6 % High 11.5-15.0 [facility] Comment on above: Performed By: #### L [id number] ####[facility] ([facility])[address] [place] [place] [address] ERYTHROCYTE MEAN CORPUSCULAR HEMOGLOBIN CONCENTRATION (G/DL) BY AUTOMATED 31.9 g/dL Low 32.0-35.0 [facility] Comment on above: Performed By: #### L [id number] ####[facility] ([facility])[address] [place] [place] [address] Hematocrit (Bld) [Volume fraction] 32.3 % Low 36.0-48.0 [facility] Comment on above: Performed By: #### L [id number] ####[facility] [place] [place] [address] Hemoglobin (Bld) [Mass/Vol] 10.3 g/dL Low 12.0-15.0 [facility] Comment on above: Performed By: #### L [id number] ####[facility] ([facility] [place] [place] [address] MCH (RBC) [Entitic mass] 31.7 pg Normal 27.0-33.0 [facility] Comment on above: Performed By: #### L [id number] ####[facility] (BEAKER)[address] [place] [address] MCV (RBC) [Entitic vol] 99.4 fL High 82.0-98.0 [facility] Comment on above: Performed By: #### L [id number] ####[facility] ([facility] [place] [address] PLATELETS (10*3/UL) IN BLOOD AUTOMATED COUNT 263 10*3/uL Normal 150-400 [facility] Comment on above: Performed By: #### L [id number] ####[facility] ([facility] [place] [place] [address] RBC (Bld) [#/Vol] 3.25 10*6/uL Low 3.80-5.00 [facility] Comment on above: Performed By: #### L [id number] ####[facility] ([facility])[address] [place] [place] [address] WBC (Bld) [#/Vol] 5.96 10*3/uL Normal 4.00-10.60 [facility] Comment on above: Performed By: #### L [id number] ####[facility] ([facility])[address] [place] [place] [address] 37on 01-08-2024 37 Normal [facility] 36on 01-07-2024 36 Called patient to re mind her to have chest xray completed prior to her appointment tomorrow. Normal [facility] BASIC METABOLIC PANELon 12-22 Anion gap [Moles/Vol] 8 mmol/L Normal 7-20 [facility] Comment on above: Performed By: #### L [id number] ####[facility] ([facility] [place] [address] Calcium [Mass/Vol] 8.4 mg/dL Low 8.6-10.3 [facility] Comment on above: Performed By: #### L [id number] ####[facility] ([facility] [place] [place] [address] Chloride [Moles/Vol] 108 mmol/L High 98-107 [facility] Comment on above: Performed By: #### L [id number] ####[facility] ([facility])[address] [place] [address] CO2 [Moles/Vol] 27 mmol/L Normal 21-31 [facility] Comment on above: Performed By: #### L [id number] ####[facility] ([facility])[address] [place] [address] Creatinine [Mass/Vol] 0.81 mg/dL Normal 0.60-1.20 [facility] Comment on above: Performed By: #### L [id number] ####[facility] ([facility])[address] [place] [address] GLOMERULAR FILTRATION RATE ML/MIN/1.73 SQ M.PREDICTED 82.0 mL/min/1.73m*2 Normal >60.0 [facility] Comment on above: Result Comment: [facility]???s estimated glomerular filtration rate (eGFR) will [...] of individuals. Performed By: #### L [id number] ####[facility] ([facility])[address] [place] [address] Glucose [Mass/Vol] 106 mg/dL High 70-100 [facility] Comment on above: Performed By: #### L [id number] ####[facility] ([facility])[address] [place] [address] Potassium [Moles/Vol] 4.1 mmol/L Normal 3.5-5.1 [facility] Comment on above: Performed By: #### L [id number] ####[facility] (BEAKER)[address] [place] [place] [address] Sodium [Moles/Vol] 139 mmol/L Normal 136-145 [facility] Comment on above: Performed By: #### L [id number] ####[facility] (BEAKER)[address] [place] [address] Urea nitrogen [Mass/Vol] 18 mg/dL Normal 7-25 [facility] Comment on above: Performed By: #### L [id number] ####[facility] (BEAKER)[address] [place] [address] UREA NITROGEN/CREATININE (MASS RATIO) IN SER/PLAS 22.2 Normal [facility] Comment on above: Performed By: #### L [id number] ####[facility] (BEAKER)[address] [place] [place] [address] CBCon 01-05-2024 Erythrocyte distribution width (RBC) [Ratio] 17.1 % High 11.5-15.0 [facility] Comment on above: Performed By: #### L [id number] ####[facility] (BEAKER)[address] [place] [place] [address] ERYTHROCYTE MEAN CORPUSCULAR HEMOGLOBIN CONCENTRATION (G/DL) BY AUTOMATED 31.0 g/dL Low 32.0-35.0 [facility] Comment on above: Performed By: #### L [id number] ####[facility] (BEAKER)[address] [place] [address] Hematocrit (Bld) [Volume fraction] 32.6 % Low 36.0-48.0 [facility] Comment on above: Performed By: #### L [id number] ####[facility] (BEAKER)[address] [place] [address] Hemoglobin (Bld) [Mass/Vol] 10.1 g/dL Low 12.0-15.0 [facility] Comment on above: Performed By: #### L [id number] ####[facility] (BEAKER)[address] [place] [address] MCH (RBC) [Entitic mass] 32.1 pg Normal 27.0-33.0 [facility] Comment on above: Performed By: #### L [id number] ####[facility] ([facility])[address] [place] [address] MCV (RBC) [Entitic vol] 103.5 fL High 82.0-98.0 [facility] Comment on above: Performed By: #### L [id number] ####[facility] ([facility])[address] [place] [address] PLATELETS (10*3/UL) IN BLOOD AUTOMATED COUNT 371 10*3/uL Normal 150-400 [facility] Comment on above: Performed By: #### L [id number] ####[facility] ([facility])[address] [place] [address] RBC (Bld) [#/Vol] 3.15 10*6/uL Low 3.80-5.00 [facility] Comment on above: Performed By: #### L [id number] ####[facility] ([facility])[address] [place] [address] WBC (Bld) [#/Vol] 6.99 10*3/uL Normal 4.00-10.60 [facility] Comment on above: Performed By: #### L [id number] ####[facility] ([facility])[address] [place] [address] CBC WITH AUTO DIFFERENTIALon 12-31-2023 Basophils (Bld) [#/Vol] 0.07 10*3/uL Normal 0.00-0.20 [facility] Comment on above: Performed By: #### L [id number] ####[facility] ([facility])[address] [place] [address] Basophils/100 WBC (Bld) 1.1 % High 0.0-1.0 [facility] Comment on above: Performed By: #### L [id number] ####[facility] ([facility] [place] [address] Eosinophils (Bld) [#/Vol] 0.39 10*3/uL Normal 0.00-0.50 [facility] Comment on above: Performed By: #### L [id number] ####[facility] (BEAKER)[address] [place] [address] Eosinophils/100 WBC (Bld) 6.3 % High 0.0-6.0 [facility] Comment on above: Performed By: #### L [id number] ####[facility] (BEAKER)[address] [place] [address] Erythrocyte distribution width (RBC) [Ratio] 17.5 % High 11.5-15.0 [facility] Comment on above: Performed By: #### L [id number] ####[facility] (BEAKER)[address] [place] [address] ERYTHROCYTE MEAN CORPUSCULAR HEMOGLOBIN CONCENTRATION (G/DL) BY AUTOMATED 30.6 g/dL Low 32.0-35.0 [facility] Comment on above: Performed By: #### L [id number] ####[facility] (BEAKER)[address] [place] [address] Hematocrit (Bld) [Volume fraction] 28.4 % Low 36.0-48.0 [facility] Comment on above: Performed By: #### L [id number] ####[facility] (BEAKER)[address] [place] [address] Hemoglobin (Bld) [Mass/Vol] 8.7 g/dL Low 12.0-15.0 [facility] Comment on above: Performed By: #### L [id number] ####[facility] (BEAKER)[address] [place] [address] Immature granulocytes (Bld) [#/Vol] 0.04 10*3/uL Normal 0.00-0.20 [facility] Comment on above: Performed By: #### L [id number] ####[facility] (BEAKER)[address] [place] [address] Immature granulocytes/100 WBC (Bld) 0.6 % Normal 0.0-1.0 [facility] Comment on above: Performed By: #### L [id number] ####[facility] ([facility])[address] [place] [address] Lymphocytes (Bld) [#/Vol] 1.24 10*3/uL Normal 1.20-4.00 [facility] Comment on above: Performed By: #### L [id number] ####[facility] ([facility])[address] [place], [place] [address] Lymphocytes/100 WBC (Bld) 20.0 % Normal 20.0-45.0 [facility] Comment on above: Performed By: #### L [id number] ####[facility] ([facility])[address] [place], [place] [address] MCH (RBC) [Entitic mass] 31.8 pg Normal 27.0-33.0 [facility] Comment on above: Performed By: #### L [id number] ####[facility] ([facility])[address] [place], [place] [address] MCV (RBC) [Entitic vol] 103.6 fL High 82.0-98.0 [facility] Comment on above: Performed By: #### L [id number] ####[facility] ([facility])[address] [place] [place], [place] [address] Monocytes (Bld) [#/Vol] 0.35 10*3/uL Normal 0.10-1.00 [facility] Comment on above: Performed By: #### L [id number] ####[facility] ([facility])[address] [place] [place], [place] [address] Monocytes/100 WBC (Bld) 5.6 % Normal 5.0-12.0 [facility] Comment on above: Performed By: #### L [id number] ####[facility] ([facility] [place], [place] [address] Neutrophils (Bld) [#/Vol] 4.12 10*3/uL Normal 1.60-7.60 [facility] Comment on above: Performed By: #### L [id number] ####[facility] ([facility] [place] [place] [address] Neutrophils/100 WBC (Bld) 66.4 % Normal 40.0-72.0 [facility] Comment on above: Performed By: #### L [id number] ####[facility] ([facility] [place] [place] [address] NRBC (PER 100 WBCS) BY AUTOMATED COUNT 0.0 % Normal 0 [facility] Comment on above: Performed By: #### L [id number] ####[facility] ([facility])[address] [place], [place] [address] PLATELETS (10*3/UL) IN BLOOD AUTOMATED COUNT 405 10*3/uL High 150-400 [facility] Comment on above: Performed By: #### L [id number] ####[facility] ([facility])[address] [place] [address] RBC (Bld) [#/Vol] 2.74 10*6/uL Low 3.80-5.00 [facility] Comment on above: Performed By: #### L [id number] ####[facility] ([facility])[address] [place], [place] [address] WBC (Bld) [#/Vol] 6.21 10*3/uL Normal 4.00-10.60 [facility] Comment on above: Performed By: #### L [id number] ####[facility] ([facility] [place], [place] [address] COMPREHENSIVE METABOLIC PANE Kirit 12-31-2023 Albumin [Mass/Vol] 3.2 g/dL Low 3.5-5.7 [facility] Comment on above: Performed By: #### L [id number] ####[facility] (BEAKER)[address] [place], [place] [address] ALP [Catalytic activity/Vol] 115 U/L High 34-104 [facility] Comment on above: Performed By: #### L [id number] ####[facility] (BEAKER)[address] [place] [address] ALT [Catalytic activity/Vol] 11 U/L Normal 7-52 [facility] Comment on above: Performed By: #### L [id number] ####[facility] (BEAKER)[address] [place] [address] Anion gap [Moles/Vol] 9 mmol/L Normal 7-20 [facility] Comment on above: Performed By: #### L [id number] ####[facility] ([facility] [place] [address] AST [Catalytic activity/Vol] 19 U/L Normal 13-39 [facility] Comment on above: Performed By: #### L [id number] ####[facility] ([facility] [place] [address] Bilirubin [Mass/Vol] 0.3 mg/dL Normal 0.3-1.0 [facility] Comment on above: Performed By: #### L [id number] ####[facility] ([facility])[address] [place] [address] Calcium [Mass/Vol] 8.5 mg/dL Low 8.6-10.3 [facility] Comment on above: Performed By: #### L [id number] ####[facility] ([facility])[address] [place] [address] Chloride [Moles/Vol] 104 mmol/L Normal 98-107 [facility] Comment on above: Performed By: #### L [id number] ####[facility] ([facility])[address] [place] [address] CO2 [Moles/Vol] 28 mmol/L Normal 21-31 [facility] Comment on above: Performed By: #### L [id number] ####[facility] (BEAKER)[address] [place] [address] Creatinine [Mass/Vol] 0.66 mg/dL Normal 0.60-1.20 [facility] Comment on above: Performed By: #### L [id number] ####[facility] ([facility])[address] [place] [address] GLOMERULAR FILTRATION RATE ML/MIN/1.73 SQ M.PREDICTED 99.1 mL/min/1.73m*2 Normal >60.0 [facility] Comment on above: Result Comment: [facility]???s estimated glomerular filtration rate (eGFR) will [...] of individuals. Performed By: #### L [id number] ####[facility] ([facility])[address] [place] [place] [address] Glucose [Mass/Vol] 112 mg/dL High 70-100 [facility] Comment on above: Performed By: #### L [id number] ####[facility] ([facility])[address] [place] [address] Potassium [Moles/Vol] 4.3 mmol/L Normal 3.5-5.1 [facility] Comment on above: Performed By: #### L [id number] ####[facility] ([facility])[address] [place] [address] Protein [Mass/Vol] 5.7 g/dL Low 6.0-8.3 [facility] Comment on above: Performed By: #### L [id number] ####[facility] ([facility])[address] [place] [address] Sodium [Moles/Vol] 137 mmol/L Normal 136-145 [facility] Comment on above: Performed By: #### L [id number] ####[facility] ([facility])[address] [place] [address] Urea nitrogen [Mass/Vol] 17 mg/dL Normal 7- [facility] Comment on above: Performed By: #### L [id number] ####[facility] ([address] [facility])[address] [place] [address] UREA NITROGEN/CREATININE (MASS RATIO) IN SER/PLAS 25.8 [facility] Comment on above: Performed By: #### L [id number] ####[facility] ([facility])[address] [place] [address] 30on 12-30-2023 30 [facility] 30 [facility] DSon 12-30-2023 DS [facility] Orders Onlyon 12-30-2023 Orders Only [facility] POCT GLUCOSE METER UNSOLICIT ED RESULTSon 12-30-2023 Glucose [Mass/Vol] 164 mg/dL High 70-105 [facility] Comment on above: Order Comment: Waive d Testing in the ED is performed under the ED CLIA certificate #[id number]. Result Comment: bflo od Performed By: #### L [id number] ####[facility] ([facility])[address] [place] [address] Glucose [Mass/Vol] 144 mg/dL High 70-105 [facility] Comment on above: Order Comment: Waive d Testing in the ED is performed under the ED CLIA certificate #[id number]. Result Comment: bflo od Performed By: #### L [id number] ####[facility] ([address] [facility])[address] [place] [place] [address] 30on 12-29-2023 30 [facility] 30 [facility] 30 [facility] BASIC METABOLIC PANELon Anion gap [Moles/Vol] 9 mmol/L Normal 7-20 [facility] Comment on above: Performed By: #### L [id number] ####[facility] ([employer])[address] [place] [address] Calcium [Mass/Vol] 8.2 mg/dL Low 8.6-10.3 [facility] Comment on above: Performed By: #### L [id number] ####[facility] ([facility])[address] [place] [place] [address] Chloride [Moles/Vol] 103 mmol/L Normal 98-107 [facility] Comment on above: Performed By: #### L [id number] ####[facility] ([facility])[address] [place] [place] [address] CO2 [Moles/Vol] 30 mmol/L Normal 21-31 [facility] Comment on above: Performed By: #### L [id number] ####[facility] ([facility])[address] [place] [place] [address] Creatinine [Mass/Vol] 0.69 mg/dL Normal 0.60-1.20 [facility] Comment on above: Performed By: #### L [id number] ####[facility] ([facility])[address] [place] [address] GLOMERULAR FILTRATION RATE ML/MIN/1.73 SQ M.PREDICTED 98.1 mL/min/1.73m*2 Normal >60.0 [facility] Comment on above: Result Comment: [facility]???s estimated glomerular filtration rate (eGFR) will [...] of individuals. Performed By: #### L [id number] ####[facility] ([facility])[address] [place] [place] [address] Glucose [Mass/Vol] 164 mg/dL High 70-100 [facility] Comment on above: Performed By: #### L [id number] ####[facility] (BEAKER)[address] [place] [place] [address] Potassium [Moles/Vol] 4.1 mmol/L Normal 3.5-5.1 [facility] Comment on above: Performed By: #### L [id number] ####[facility] (BEAKER)[address] [place] [place] [address] Sodium [Moles/Vol] 138 mmol/L Normal 136-145 [facility] Comment on above: Performed By: #### L [id number] ####[facility] (BEAKER)[address] [place] [place] [address] Urea nitrogen [Mass/Vol] 13 mg/dL Normal 7-25 [facility] Comment on above: Performed By: #### L [id number] ####[facility] (BEAKER)[address] [place] [place] [address] UREA NITROGEN/CREATININE (MASS RATIO) IN SER/PLAS 18.8 Normal [facility] Comment on above: Performed By: #### L [id number] ####[facility] (BEAKER)[address] [place] [place] [address] CBCon 12-29-2023 Erythrocyte distribution width (RBC) [Ratio] 17.5 % High 11.5-15.0 [facility] Comment on above: Performed By: #### L [id number] ####[facility] (BEAKER)[address] [place] [place] [address] ERYTHROCYTE MEAN CORPUSCULAR HEMOGLOBIN CONCENTRATION (G/DL) BY AUTOMATED 31.7 g/dL Low 32.0-35.0 [facility] Comment on above: Performed By: #### L [id number] ####[facility] (BEAKER)[address] [place] [place] [address] Hematocrit (Bld) [Volume fraction] 26.2 % Low 36.0-48.0 [facility] Comment on above: Performed By: #### L [id number] ####[facility] (BEAKER)[address] [place] [place] [address] Hemoglobin (Bld) [Mass/Vol] 8.3 g/dL Low 12.0-15.0 [facility] Comment on above: Performed By: #### L [id number] ####[facility] ([facility])[address] [place] [place] [address] MCH (RBC) [Entitic mass] 32.3 pg Normal 27.0-33.0 [facility] Comment on above: Performed By: #### L [id number] ####[facility] ([facility])[address] [place] [place] [address] MCV (RBC) [Entitic vol] 101.9 fL High 82.0-98.0 [facility] Comment on above: Performed By: #### L [id number] ####[facility] ([facility])[address] [place] [place] [address] PLATELETS (10*3/UL) IN BLOOD AUTOMATED COUNT 393 10*3/uL Normal 150-400 [facility] Comment on above: Performed By: #### L [id number] ####[facility] ([facility])[address] [place] [place] [address] RBC (Bld) [#/Vol] 2.57 10*6/uL Low 3.80-5.00 [facility] Comment on above: Performed By: #### L [id number] ####[facility] ([facility])[address] [place] [place] [address] WBC (Bld) [#/Vol] 6.00 10*3/uL Normal 4.00-10.60 [facility] Comment on above: Performed By: #### L [id number] ####[facility] ([facility])[address] [place] [place] [address] FERRITINon 12-29-2023 FERRITIN (NG/ML) IN SER/PLAS 319.0 ng/mL High 11.0-307.0 [facility] Comment on above: Performed By: #### L [id number] ####[facility] ([facility])[address] [place] [place] [address] MAGNESIUMon 12-29-2023 Magnesium [Mass/Vol] 2.2 mg/dL Normal 1.9-2.7 [facility] Comment on above: Performed By: #### L [id number] ####[facility] ([email or web address])[address] [place] [address] POCT GLUCOSE METER UNSOLICIT ED RESULTSon 12-29-2023 Glucose [Mass/Vol] 173 mg/dL High 70-105 [facility] Comment on above: Order Comment: Waive d Testing in the ED is performed under the ED CLIA certificate #[id number]. Result Comment: [email or web address] Performed By: #### L [id number] ####[facility] ([email or web address])[address] [place] [address] Glucose [Mass/Vol] 133 mg/dL High 70-105 [facility] Comment on above: Order Comment: Waive d Testing in the ED is performed under the ED CLIA certificate #[id number]. Result Comment: [email or web address] Performed By: #### L [id number] ####[facility] ([employer])[address] [place] [address] Glucose [Mass/Vol] 124 mg/dL High 70-105 [facility] Comment on above: Order Comment: Waive d Testing in the ED is performed under the ED CLIA certificate #[id number]. Result Comment: [email or web address] Performed By: #### L [id number] ####[facility] ([employer])[address] [place] [address] Glucose [Mass/Vol] 112 mg/dL High 70-105 [facility] Comment on above: Order Comment: Waive d Testing in the ED is performed under the ED CLIA certificate #[id number]. Result Comment: bflo od Performed By: #### L [id number] ####[facility] ([employer])[address] [place] [address] 30on 12-28-2023 30 Normal [facility] POCT GLUCOSE METER UNSOLICIT ED RESULTSon 12-28-2023 Glucose [Mass/Vol] 166 mg/dL High 70-105 [facility] Comment on above: Order Comment: Waive d Testing in the ED is performed under the ED CLIA certificate #[id number]. Result Comment: [email or web address] Performed By: #### L [id number] ####[facility] ([facility])[address] [place] [address] Glucose [Mass/Vol] 103 mg/dL Normal 70-105 [facility] Comment on above: Order Comment: Waive d Testing in the ED is performed under the ED CLIA certificate #[id number]. Result Comment: [email or web address] Performed By: #### L [id number] ####[facility] ([facility])[address] [place] [address] Glucose [Mass/Vol] 154 mg/dL High 70-105 [facility] Comment on above: Order Comment: Waive d Testing in the ED is performed under the ED CLIA certificate #[id number]. Result Comment: [email or web address] Performed By: #### L [id number] ####[facility] ([facility])[address] [place] [address] Glucose [Mass/Vol] 128 mg/dL High 70-105 [facility] Comment on above: Order Comment: Waive d Testing in the ED is performed under the ED CLIA certificate #[id number]. Result Comment: [email or web address] Performed By: #### L [id number] ####[facility] ([facility])[address] [place] [address] 30on 12-27-2023 30 [facility] 30 [facility] BASIC METABOLIC PANELon 10-0 Anion gap [Moles/Vol] 12 mmol/L Normal 7-20 [facility] Comment on above: Performed By: #### L [id number] ####[facility] ([facility])[address] [place] [address] Calcium [Mass/Vol] 8.1 mg/dL Low 8.6-10.3 [facility] Comment on above: Performed By: #### L [id number] ####[facility] ([facility] [place] [address] Chloride [Moles/Vol] 104 mmol/L Normal 98-107 [facility] Comment on above: Performed By: #### L [id number] ####[facility] ([facility] [place] [address] CO2 [Moles/Vol] 24 mmol/L Normal 21-31 [facility] Comment on above: Performed By: #### L [id number] ####[facility] ([facility])[address] [place] [address] Creatinine [Mass/Vol] 0.69 mg/dL Normal 0.60-1.20 [facility] Comment on above: Performed By: #### L [id number] ####[facility] ([facility])[address] [place] [address] GLOMERULAR FILTRATION RATE ML/MIN/1.73 SQ M.PREDICTED 98.1 mL/min/1.73m*2 Normal >60.0 [facility] Comment on above: Result Comment: [facility]???s estimated glomerular filtration rate (eGFR) will [...] of individuals. Performed By: #### L [id number] ####[facility] ([facility] [place] [address] Glucose [Mass/Vol] 107 mg/dL High 70-100 [facility] Comment on above: Performed By: #### L [id number] ####[facility] ([facility] [place] [address] Potassium [Moles/Vol] 4.6 mmol/L Normal 3.5-5.1 [facility] Comment on above: Performed By: #### L [id number] ####[facility] (BEAKER)[address] [place] [address] Sodium [Moles/Vol] 135 mmol/L Low 136-145 [facility] Comment on above: Performed By: #### L [id number] ####[facility] (BEAKER)[address] [place] [address] Urea nitrogen [Mass/Vol] 20 mg/dL Normal 7-25 [facility] Comment on above: Performed By: #### L [id number] ####[facility] (BEAKER)[address] [place] [address] UREA NITROGEN/CREATININE (MASS RATIO) IN SER/PLAS 29.0 Normal [facility] Comment on above: Performed By: #### L [id number] ####[facility] (BEAKER)[address] [place] [address] CBCon 12-27-2023 Erythrocyte distribution width (RBC) [Ratio] 17.4 % High 11.5-15.0 [facility] Comment on above: Performed By: #### L [id number] ####[facility] (BEAKER)[address] [place] [address] ERYTHROCYTE MEAN CORPUSCULAR HEMOGLOBIN CONCENTRATION (G/DL) BY AUTOMATED 30.4 g/dL Low 32.0-35.0 [facility] Comment on above: Performed By: #### L [id number] ####[facility] (BEAKER)[address] [place] [address] Hematocrit (Bld) [Volume fraction] 28.3 % Low 36.0-48.0 [facility] Comment on above: Performed By: #### L [id number] ####[facility] (BEAKER)[address] [place] [address] Hemoglobin (Bld) [Mass/Vol] 8.6 g/dL Low 12.0-15.0 [facility] Comment on above: Performed By: #### L [id number] ####[facility] (BEAKER)[address] [place] [address] IMMATURE PLATELET FRACTION % 0.5 % Low 0.8-6.3 [facility] Comment on above: Performed By: #### L [id number] ####[facility] (BEAKER)[address] [place] [address] MCH (RBC) [Entitic mass] 32.2 pg Normal 27.0-33.0 [facility] Comment on above: Performed By: #### L [id number] ####[facility] ([facility] [place] [address] MCV (RBC) [Entitic vol] 106.0 fL High 82.0-98.0 [facility] Comment on above: Performed By: #### L [id number] ####[facility] ([facility])[address] [place] [address] Platelet mean volume (Bld) [Entitic vol] 8.9 fL Normal 7.5-11.5 [facility] Comment on above: Performed By: #### L [id number] ####[facility] ([facility])[address] [place] [address] PLATELETS (10*3/UL) IN BLOOD AUTOMATED COUNT 437 10*3/uL High 150-400 [facility] Comment on above: Performed By: #### L [id number] ####[facility] ([facility])[address] [place] [address] RBC (Bld) [#/Vol] 2.67 10*6/uL Low 3.80-5.00 [facility] Comment on above: Performed By: #### L [id number] ####[facility] (BEAKER)[address] [place] [address] WBC (Bld) [#/Vol] 7.03 10*3/uL Normal 4.00-10.60 [facility] Comment on above: Performed By: #### L [id number] ####[facility] (BEAKER)[address] [place] [address] MAGNESIUMon 12-27-2023 Magnesium [Mass/Vol] 2.5 mg/dL Normal 1.9-2.7 [facility] Comment on above: Performed By: #### L [id number] ####[facility] (BEAKER)[address] [place] [address] POCT GLUCOSE METER UNSOLICIT ED RESULTSon 12-27-2023 Glucose [Mass/Vol] 100 mg/dL Normal 70-105 [facility] Comment on above: Order Comment: Waive d Testing in the ED is performed under the ED CLIA certificate #[id number]. Result Comment: [email or web address] Performed By: #### L [id number] ####[facility] ([facility])[address] [place] [address] Glucose [Mass/Vol] 130 mg/dL High 70-105 [facility] Comment on above: Order Comment: Waive d Testing in the ED is performed under the ED CLIA certificate #[id number]. Result Comment: bflo od Performed By: #### L [id number] ####[facility] ([facility])[address] [place] [place] [address] Glucose [Mass/Vol] 174 mg/dL High 70-105 [facility] Comment on above: Order Comment: Waive d Testing in the ED is performed under the ED CLIA certificate #[id number]. Result Comment: bflo od Performed By: #### L [id number] ####[facility] ([facility])[address] [place], [place] [address] Glucose [Mass/Vol] 131 mg/dL High 70-105 [facility] Comment on above: Order Comment: Waive d Testing in the ED is performed under the ED CLIA certificate #[id number]. Result Comment: bflo od Performed By: #### L [id number] ####[facility] (BEAKER)[address] [place] [address] 30on 12-26-2023 30 Normal [facility] 30 Normal [facility] POCT GLUCOSE METER UNSOLICIT ED RESULTSon 12-26-2023 Glucose [Mass/Vol] 144 mg/dL High 70-105 [facility] Comment on above: Order Comment: Waive d Testing in the ED is performed under the ED CLIA certificate #[id number]. Result Comment: [email or web address] Performed By: #### L [id number] ####[facility] ([facility])[address] [place] [address] Glucose [Mass/Vol] 161 mg/dL High 70-105 [facility] Comment on above: Order Comment: Waive d Testing in the ED is performed under the ED CLIA certificate #[id number]. Result Comment: cgro ll Performed By: #### L [id number] ####[facility] ([facility])[address] [place] [address] Glucose [Mass/Vol] 118 mg/dL High 70-105 [facility] Comment on above: Order Comment: Waive d Testing in the ED is performed under the ED CLIA certificate #[id number]. Result Comment: [email or web address] Performed By: #### L [id number] ####[facility] ([email or web address])[address] [place] [address] Glucose [Mass/Vol] 128 mg/dL High 70-105 [facility] Comment on above: Order Comment: Waive d Testing in the ED is performed under the ED CLIA certificate #[id number]. Result Comment: [email or web address] Performed By: #### L [id number] ####[facility] ([facility])[address] [place] [address] 30on 12-25-2023 30 The patient is Moder ately Stable - Low risk of patient condition declining or worsening The patient's goals for the shift include no pain The clinical goals for the shift include vss/pain control Normal [facility] 30 Normal [facility] NURSNOTEon 12-25-2023 NURSNOTE Normal [facility] POCT GLUCOSE METER UNSOLICIT ED RESULTSon 12-25-2023 Glucose [Mass/Vol] 115 mg/dL High 70-105 [facility] Comment on above: Order Comment: Waive d Testing in the ED is performed under the ED CLIA certificate #[id number]. Result Comment: larry [email or web address] Performed By: #### L [id number] ####[facility] ([employer])[address] [place] [address] Glucose [Mass/Vol] 118 mg/dL High 70-105 [facility] Comment on above: Order Comment: Waive d Testing in the ED is performed under the ED CLIA certificate #[id number]. Result Comment: [email or web address] Performed By: #### L [id number] ####[facility] ([facility])[address] [place] [address] Glucose [Mass/Vol] 169 mg/dL High 70-105 [facility] Comment on above: Order Comment: Waive d Testing in the ED is performed under the ED CLIA certificate #[id number]. Result Comment: [email or web address] Performed By: #### L [id number] ####[facility] ([facility])[address] [place] [address] Glucose [Mass/Vol] 126 mg/dL High 70-105 [facility] Comment on above: Order Comment: Waive d Testing in the ED is performed under the ED CLIA certificate #[id number]. Result Comment: [email or web address] Performed By: #### L [id number] ####[facility] ([facility])[address] [place] [address] 30on 12-24-2023 30 Normal [facility] 30 The patient is Moder ately Stable - Low risk of patient condition declining or worsening The patient's goals for the shift include comfort The clinical goals for the shift include safety Normal [facility] AFB CULTUREon 12-24-2023 AFB CULTURE No growth at [address] [facility] Comment on above: Performed By: #### L [id number] ####[facility] ([facility])[address] [place] [address] AFB STAIN No acid fast bacilli seen Normal [facility] Comment on above: Performed By: #### L [id number] ####[facility] ([facility] [place] [address] AMYLASE, BODY FLUIDon 2023 AMYLASE (U/L) IN BODY FLUID <10 Normal [facility] Comment on above: Result Comment: The reference range and other method performance specifications have not been established for this test in fluids. the test result should be integrated into the clinical context for interpretation. Performed By: #### L [id number] ####[facility] (BEAKER)[address] [place] [address] BODY FLUID CELL DIFFERENTIAL on 12-24-2023 BASOPHILS TOTAL PER COUNTED LEUKOCYTES IN BODY FLUID BY MANUAL COUNT 2 Normal [facility] Comment on above: Order Comment: Diffe rential performed on cytospin Performed By: #### L [id number] ####[facility] ([facility])[address] [place] [address] CELLS COUNTED TOTAL (#) IN BODY FLUID 100 Normal [facility] Comment on above: Order Comment: Diffe rential performed on cytospin Performed By: #### L [id number] ####[facility] ([facility])[address] [place] [address] EOSINOPHILS TOTAL PER COUNTED LEUKOCYTES IN BODY FLUID BY MANUAL COUNT 4 Normal [facility] Comment on above: Order Comment: Diffe rential performed on cytospin Performed By: #### L [id number] ####[facility] (BEAKER)[address] [place] [address] LYMPHOCYTES TOTAL PER COUNTED LEUKOCYTES IN BODY FLUID BY MANUAL COUNT 9 Normal [facility] Comment on above: Order Comment: Diffe rential performed on cytospin Performed By: #### L [id number] ####[facility] (BEAKER)[address] [place] [address] MESOTHELIAL CELLS TOTAL PER COUNTED LEUKOCYTES IN BODY FLUID BY MANUAL COUN 5 [facility] Comment on above: Order Comment: Diffe rential performed on cytospin Performed By: #### L [id number] ####[facility] (BEAKER)[address] [place] [address] MONOCYTES+MACROPHAGES TOTAL PER COUNTED LEUKOCYTES IN BODY FLUID BY MANUAL Normal [facility] Comment on above: Order Comment: Diffe rential performed on cytospin Performed By: #### L [id number] ####[facility] (BEAKER)[address] [place] [address] NEUTROPHILS TOTAL PER COUNTED LEUKOCYTES IN BODY FLUID BY MANUAL COUNT 80 Normal [facility] Comment on above: Order Comment: Diffe rential performed on cytospin Performed By: #### L [id number] ####[facility] (BEAKER)[address] [place] [address] OTHER CELLS BODY FLUID (MANUAL) Normal [facility] Comment on above: Order Comment: Diffe rential performed on cytospin Performed By: #### L [id number] ####[facility] (BEAKER)[address] [place] [address] BODY FLUID CULTUREon 024 Bacteria identified Cx Nom (Unsp spec) No growth at 5 days [facility] Comment on above: Performed By: #### L [id number] ####[facility] ([facility] [place] [address] GRAM STAIN RESULT Normal [facility] Comment on above: Result Comment: Poly morphonuclear leukocytesNo organisms seenCytocentrifuge sample Performed By: #### L [id number] ####[facility] ([facility] [place] [address] CHOLESTEROL, BODY FLUIDon CHOLESTEROL (MG/DL) IN BODY FLUID 37 mg/dL [facility] Comment on above: Performed By: #### L [id number] ####[facility] ([facility] [place] [address] CONSULTon 12-24-2023 CONSULT Normal [facility] FUNGAL CULTUREon 12-24-2023 FUNGAL SMEAR No yeast or fungal e lements seen [facility] Comment on above: Performed By: #### L [id number] ####[facility] ([facility])[address] [place] [address] GLUCOSE, BODY FLUIDon 2023 GLUCOSE (MG/DL) IN BODY FLUID 88 mg/dL Normal [facility] Comment on above: Result Comment: The reference range and other method performance specifications have not been established for this test in fluids. the test result should be integrated into the clinical context for interpretation. Performed By: #### L [id number] ####[facility] ([facility])[address] [place] [address] GLUCOSE, RANDOMon 12-24-2023 Glucose [Mass/Vol] 121 mg/dL High 70-100 [facility] Comment on above: Performed By: #### L [id number] ####[facility] ([facility])[address] [place] [address] HEPATIC FUNCTION PANELon Albumin [Mass/Vol] 3.4 g/dL Low 3.5-5.7 [facility] Comment on above: Performed By: #### L [id number] ####[facility] ([facility])[address] [place] [address] ALP [Catalytic activity/Vol] 133 U/L High 34-104 [facility] Comment on above: Performed By: #### L [id number] ####[facility] ([facility])[address] [place] [address] ALT [Catalytic activity/Vol] 22 U/L Normal 7-52 [facility] Comment on above: Performed By: #### L [id number] ####[facility] ([facility])[address] [place] [address] AST [Catalytic activity/Vol] 28 U/L Normal 13-39 [facility] Comment on above: Performed By: #### L [id number] ####[facility] ([facility])[address] [place] [address] Bilirubin [Mass/Vol] 0.4 mg/dL Normal 0.3-1.0 [facility] Comment on above: Performed By: #### L [id number] ####[facility] (BEAKER)[address] [place] [address] Magnesium [Mass/Vol] 0.1 mg/dL Normal 0-0.2 [facility] Comment on above: Performed By: #### L [id number] ####[facility] ([facility])[address] [place] [place] [address] Protein [Mass/Vol] 6.1 g/dL Normal 6.0-8.3 [facility] Comment on above: Performed By: #### L [id number] ####[facility] ([facility])[address] [place] [address] LACTATE DEHYDROGENASEon LACTATE DEHYDROGENASE (U/L) IN SER/PLAS BY LAC->PYR RXN 240 U/L Normal 140-271 [facility] Comment on above: Performed By: #### L [id number] ####[facility] ([facility])[address] [place] [address] LACTATE DEHYDROGENASE, BODY FLUIDon 12-24-2023 LACTATE DEHYDROGENASE (U/L) IN BODY FLUID BY LAC->PYR 756 U/L Normal [facility] Comment on above: Result Comment: The reference range and other method performance specifications have not been established for this test in fluids. the test result should be integrated into the clinical context for interpretation. Performed By: #### L [id number] ####[facility] ([facility])[address] [place] [address] NON-HOISTER CYTOLOGY - CELLULAR EXAMon 12-24-2023 LAB AP CASE REPORT Normal [facility] Comment on above: Result Comment: Non- gynecologic Cytology Case: [id number] Provider: Rian Butts MD Collected: 12/24/2023 1626Ordering [facility] Received: 12/25/2023 1238Pathologist: BRIANA Neripecimen: Pleural fluid, left Performed By: #### L [id number] ####[facility] ([facility])[address] [place] [address] LAB AP CLINICAL INFORMATION Normal [facility] Comment on above: Result Comment: Left pleural effusion Performed By: #### L [id number] ####[facility] ([facility] [place] [address] LAB AP GROSS DESCRIPTION [facility] Comment on above: Result Comment: 400 mL cloudy, red fluid Performed By: #### L [id number] ####[facility] ([facility] [place] [address] LAB AP REPORT FINAL DIAGNOSIS NARRATIVE [facility] Comment on above: Result Comment: A. P leural fluid, left: - Negative for malignancy. - Marked acute inflammation. Performed By: #### L [id number] ####[facility] ([facility])[address] [place] [address] PATHOLOGY REVIEWon PATHOLOGY REVIEW Reviewed. Normal [facility] Comment on above: Result Comment: Elec tronically signed by Jarrod Sales MD on 12/25/23 at 2:30 PM. Performed By: #### L [id number] ####[facility] ([facility])[address] [place] [address] POCT GLUCOSE METER UNSOLICIT ED RESULTSon 12-24-2023 Glucose [Mass/Vol] 176 mg/dL High 70-105 [facility] Comment on above: Order Comment: Waive d Testing in the ED is performed under the ED CLIA certificate #[id number]. Result Comment: [email or web address] Performed By: #### L [id number] ####[facility] ([facility])[address] [place] [address] Glucose [Mass/Vol] 135 mg/dL High 70-105 [facility] Comment on above: Order Comment: Waive d Testing in the ED is performed under the ED CLIA certificate #[id number]. Result Comment: [email or web address] Performed By: #### L [id number] ####[facility] ([facility] [place] [address] Glucose [Mass/Vol] 128 mg/dL High 70-105 [facility] Comment on above: Order Comment: Waive d Testing in the ED is performed under the ED CLIA certificate #[id number]. Result Comment: [email or web address] Performed By: #### L [id number] ####[facility] ([employer])[address] [place] [address] PROTEIN, BODY FLUIDon 2023 Protein (Body fld) [Mass/Vol] 3.6 g/dL Normal [facility] Comment on above: Result Comment: The reference range and other method performance specifications have not been established for this test in fluids. the test result should be integrated into the clinical context for interpretation. Performed By: #### L [id number] ####[facility] ([employer])[address] [place] [address] PROTIME-INRon 12-24-2023 INR IN PPP BY COAGULATION ASSAY 1.28 High 0.90-1.10 [facility] Comment on above: Result Comment: ACCC [...] CHEST 1995;108:[id number]. Performed By: #### L [id number] ####[facility] ([employer])[address] [place] [address] PROTHROMBIN TIME (PT) IN PPP BY COAGULATION ASSAY 15.9 Seconds High 12.3-14.8 [facility] Comment on above: Performed By: #### L [id number] ####[facility] ([facility])[address] [place] [address] TRIGLYCERIDES, BODY FLUIDon 12-24-2023 TRIGLYCERIDES (MG/DL) IN BODY FLUID 25 mg/dL Normal [facility] Comment on above: Performed By: #### L [id number] ####[facility] ([facility])[address] [place] [address] VITAMIN Con 12-24-2023 VITAMIN C LEVEL 54 umol/L Normal 23-114 [facility] Comment on above: Result Comment: Rachael min C concentrations lower than 11 umol/L indicate deficiency.Concentrations between 11 and 23 umol/L are consistent with amoderate risk of deficiency due to inadequate tissue stores.Vitamin C concentration is reported as micromoles per liter(umol/L). To convert concentration to milligrams per deciliter(mg/dL), multiply the result by 0.0176.This test was developed and its performance characteristicsdetermined by [employer]. It has not been cleared orapproved by the [place] Food and Drug Administration. This test wasperformed in a CLIA certified laboratory and is intended forclinical purposes.Performed By: [id number] [place], [place] [address]Lph[employer]xq[employer] Director: Leeory Shah MD, PhDCLIA Number: [id number] Performed By: #### L [id number] ####[facility] ([facility])[address] [place] [address] 30on 12-23-2023 30 Normal [facility] 30 Normal [facility] 30 Normal [facility] 30 The patient is Moder ately Stable - Low risk of patient condition declining or worsening The patient's goals for the shift include comfort The clinical goals for the shift include safety Normal [facility] BASIC METABOLIC PANELon 10-0 Anion gap [Moles/Vol] 9 mmol/L Normal 7-20 [facility] Comment on above: Performed By: #### L [id number] ####[facility] (BEAKER)[address] [place] [address] Calcium [Mass/Vol] 7.9 mg/dL Low 8.6-10.3 [facility] Comment on above: Performed By: #### L [id number] ####[facility] (BEAKER)[address] [place] [address] Chloride [Moles/Vol] 105 mmol/L Normal 98-107 [facility] Comment on above: Performed By: #### L [id number] ####[facility] (BEAKER)[address] [place] [address] CO2 [Moles/Vol] 26 mmol/L Normal 21-31 [facility] Comment on above: Performed By: #### L [id number] ####[facility] (BEAKER)[address] [place] [address] Creatinine [Mass/Vol] 0.71 mg/dL Normal 0.60-1.20 [facility] Comment on above: Performed By: #### L [id number] ####[facility] (BEAKER)[address] [place] [address] GLOMERULAR FILTRATION RATE ML/MIN/1.73 SQ M.PREDICTED 96.1 mL/min/1.73m*2 Normal >60.0 [facility] Comment on above: Result Comment: [facility]???s estimated glomerular filtration rate (eGFR) will [...] of individuals. Performed By: #### L [id number] ####[facility] (BEAKER)[address] [place] [address] Glucose [Mass/Vol] 76 mg/dL Normal 70-100 [facility] Comment on above: Performed By: #### L [id number] ####[facility] ([facility] [place] [place] [address] Potassium [Moles/Vol] 4.4 mmol/L Normal 3.5-5.1 [facility] Comment on above: Performed By: #### L [id number] ####[facility] ([facility] [place] [place] [address] Sodium [Moles/Vol] 136 mmol/L Normal 136-145 [facility] Comment on above: Performed By: #### L [id number] ####[facility] ([facility] [place] [place], [place] [address] Urea nitrogen [Mass/Vol] 17 mg/dL Normal 7-25 [facility] Comment on above: Performed By: #### L [id number] ####[facility] ([facility])[address] [place] [address] UREA NITROGEN/CREATININE (MASS RATIO) IN SER/PLAS 23.9 Normal [facility] Comment on above: Performed By: #### L [id number] ####[facility] (BEJENNIFER)[address] [place] [place] [address] CBCon 12-23-2023 Erythrocyte distribution width (RBC) [Ratio] 15.7 % High 11.5-15.0 [facility] Comment on above: Performed By: #### L [id number] ####[facility] ([facility] [place] [place] [address] ERYTHROCYTE MEAN CORPUSCULAR HEMOGLOBIN CONCENTRATION (G/DL) BY AUTOMATED 31.6 g/dL Low 32.0-35.0 [facility] Comment on above: Performed By: #### L [id number] ####[facility] ([facility] [place] [place] [address] Hematocrit (Bld) [Volume fraction] 22.5 % Low 36.0-48.0 [facility] Comment on above: Performed By: #### L [id number] ####[facility] ([facility])[address] [place] [place] [address] Hemoglobin (Bld) [Mass/Vol] 7.1 g/dL Low 12.0-15.0 [facility] Comment on above: Performed By: #### L [id number] ####[facility] ([facility])[address] [place] [address] MCH (RBC) [Entitic mass] 32.0 pg Normal 27.0-33.0 [facility] Comment on above: Performed By: #### L [id number] ####[facility] ([facility])[address] [place] [place] [address] MCV (RBC) [Entitic vol] 101.4 fL High 82.0-98.0 [facility] Comment on above: Performed By: #### L [id number] ####[facility] ([facility])[address] [place] [place] [address] PLATELETS (10*3/UL) IN BLOOD AUTOMATED COUNT 355 10*3/uL Normal 150-400 [facility] Comment on above: Performed By: #### L [id number] ####[facility] ([facility])[address] [place] [place] [address] RBC (Bld) [#/Vol] 2.22 10*6/uL Low 3.80-5.00 [facility] Comment on above: Performed By: #### L [id number] ####[facility] ([facility])[address] [place] [place] [address] WBC (Bld) [#/Vol] 8.18 10*3/uL Normal 4.00-10.60 [facility] Comment on above: Performed By: #### L [id number] ####[facility] ([facility])[address] [place] [place] [address] CT CHEST WO IV CONTRASTon CT CHEST WO IV CONTRAST Invalid Interpretation Code [facility] MAGNESIUMon 12-23-2023 Magnesium [Mass/Vol] 2.4 mg/dL Normal 1.9-2.7 [facility] Comment on above: Performed By: #### L [id number] ####[facility] ([facility])[address] [place] [address] POCT GLUCOSE METER UNSOLICIT ED RESULTSon 12-23-2023 Glucose [Mass/Vol] 143 mg/dL High 70-105 [facility] Comment on above: Order Comment: Waive d Testing in the ED is performed under the ED CLIA certificate #[id number]. Result Comment: larry morrow Performed By: #### L [id number] ####[facility] ([facility])[address] [place] [address] Glucose [Mass/Vol] 159 mg/dL High 70-105 [facility] Comment on above: Order Comment: Waive d Testing in the ED is performed under the ED CLIA certificate #[id number]. Result Comment: jennifer [email or web address] Performed By: #### L [id number] ####[facility] ([facility])[address] [place] [address] Glucose [Mass/Vol] 130 mg/dL High 70-105 [facility] Comment on above: Order Comment: Waive d Testing in the ED is performed under the ED CLIA certificate #[id number]. Result Comment: [email or web address] Performed By: #### L [id number] ####[facility] ([facility])[address] [place] [address] Glucose [Mass/Vol] 118 mg/dL High 70-105 [facility] Comment on above: Order Comment: Waive d Testing in the ED is performed under the ED CLIA certificate #[id number]. Result Comment: [email or web address] Performed By: #### L [id number] ####[facility] ([facility])[address] [place] [address] VITAMIN Con 12-23-2023 VITAMIN C LEVEL 43 umol/L Normal 23-114 [facility] Comment on above: Result Comment: Rachael min C concentrations lower than 11 umol/L indicate deficiency.Concentrations between 11 and 23 umol/L are consistent with amoderate risk of deficiency due to inadequate tissue stores.Vitamin C concentration is reported as micromoles per liter(umol/L). To convert concentration to milligrams per deciliter(mg/dL), multiply the result by 0.0176.This test was developed and its performance characteristicsdetermined by Lot[facility]. It has not been cleared orapproved by the US Food and Drug Administration. This test wasperformed in a CLIA certified laboratory and is intended forclinical purposes.Performed By: [id number] [place], [place] [id number] Director: Leeroy Shah MD, PhDCLIA Number: [id number] Performed By: #### L [id number] ####[facility] (BEAKER)[address] [place] [address] 30on 12-22-2023 30 Normal [facility] 30 Normal [facility] 30 The patient is Moder ately Stable - Low risk of patient condition declining or worsening The patient's goals for the shift include comfort The clinical goals for the shift include safety Normal [facility] BASIC METABOLIC PANELon 09 Anion gap [Moles/Vol] 11 mmol/L Normal 7-20 [facility] Comment on above: Performed By: #### L [id number] ####[facility] (BEAKER)[address] [address] Calcium [Mass/Vol] 8.2 mg/dL Low 8.6-10.3 [facility] Comment on above: Performed By: #### L [id number] ####[facility] (BEAKER)[address] [place] [address] Chloride [Moles/Vol] 103 mmol/L Normal 98-107 [facility] Comment on above: Performed By: #### L [id number] ####[facility] (BEAKER)[address] [place] [address] CO2 [Moles/Vol] 28 mmol/L Normal 21-31 [facility] Comment on above: Performed By: #### L [id number] ####[facility] (BEAKER)[address] [place] [place] [address] Creatinine [Mass/Vol] 0.71 mg/dL Normal 0.60-1.20 [facility] Comment on above: Performed By: #### L [id number] ####[facility] ([facility])[address] [place] [place] [address] GLOMERULAR FILTRATION RATE ML/MIN/1.73 SQ M.PREDICTED 96.1 mL/min/1.73m*2 Normal >60.0 [facility] Comment on above: Result Comment: [facility]???s estimated glomerular filtration rate (eGFR) will [...] of individuals. Performed By: #### L [id number] ####[facility] ([facility])[address] [place] [place] [address] Glucose [Mass/Vol] 103 mg/dL High 70-100 [facility] Comment on above: Performed By: #### L [id number] ####[facility] ([facility])[address] [place] [place] [address] Potassium [Moles/Vol] 3.7 mmol/L Normal 3.5-5.1 [facility] Comment on above: Performed By: #### L [id number] ####[facility] ([facility])[address] [place] [place] [address] Sodium [Moles/Vol] 138 mmol/L Normal 136-145 [facility] Comment on above: Performed By: #### L [id number] ####[facility] ([facility])[address] [place] [place] [address] Urea nitrogen [Mass/Vol] 16 mg/dL Normal 7-25 [facility] Comment on above: Performed By: #### L [id number] ####[facility] ([facility])[address] [place] [place] [address] UREA NITROGEN/CREATININE (MASS RATIO) IN SER/PLAS 22.5 Normal [facility] Comment on above: Performed By: #### L [id number] ####[facility] ([facility])[address] [place] [place] [address] CBCon 12-22-2023 Erythrocyte distribution width (RBC) [Ratio] 14.5 % Normal 11.5-15.0 [facility] Comment on above: Performed By: #### L [id number] ####[facility] ([facility])[address] [place] [place] [address] ERYTHROCYTE MEAN CORPUSCULAR HEMOGLOBIN CONCENTRATION (G/DL) BY AUTOMATED 31.5 g/dL Low 32.0-35.0 [facility] Comment on above: Performed By: #### L [id number] ####[facility] ([facility])[address] [place] [address] Hematocrit (Bld) [Volume fraction] 25.1 % Low 36.0-48.0 [facility] Comment on above: Performed By: #### L [id number] ####[facility] ([facility])[address] [place] [address] Hemoglobin (Bld) [Mass/Vol] 7.9 g/dL Low 12.0-15.0 [facility] Comment on above: Performed By: #### L [id number] ####[facility] ([facility])[address] [place] [place] [address] MCH (RBC) [Entitic mass] 32.1 pg Normal 27.0-33.0 [facility] Comment on above: Performed By: #### L [id number] ####[facility] ([facility] [place] [address] MCV (RBC) [Entitic vol] 102.0 fL High 82.0-98.0 [facility] Comment on above: Performed By: #### L [id number] ####[facility] ([facility])[address] [place] [address] PLATELETS (10*3/UL) IN BLOOD AUTOMATED COUNT 338 10*3/uL Normal 150-400 [facility] Comment on above: Performed By: #### L [id number] ####[facility] ([facility])[address] [place] [place] [address] RBC (Bld) [#/Vol] 2.46 10*6/uL Low 3.80-5.00 [facility] Comment on above: Performed By: #### L [id number] ####[facility] ([facility])[address] [place] [address] WBC (Bld) [#/Vol] 7.31 10*3/uL Normal 4.00-10.60 [facility] Comment on above: Performed By: #### L [id number] ####[facility] ([facility])[address] [place] [place] [address] MAGNESIUMon 12-22-2023 Magnesium [Mass/Vol] 2.2 mg/dL Normal 1.9-2.7 [facility] Comment on above: Performed By: #### L [id number] ####[facility] ([facility])[address] [place] [place] [address] POCT GLUCOSE METER UNSOLICIT ED RESULTSon 12-22-2023 Glucose [Mass/Vol] 158 mg/dL High 70-105 [facility] Comment on above: Order Comment: Waive d Testing in the ED is performed under the ED CLIA certificate #[id number]. Result Comment: [email or web address] Performed By: #### L [id number] ####[facility] ([facility])[address] [place] [place] [address] Glucose [Mass/Vol] 129 mg/dL High 70-105 [facility] Comment on above: Order Comment: Waive d Testing in the ED is performed under the ED CLIA certificate #[id number]. Result Comment: [email or web address] Performed By: #### L [id number] ####[facility] (BEAKER)[address] [place] [address] Glucose [Mass/Vol] 175 mg/dL High 70-105 [facility] Comment on above: Order Comment: Waive d Testing in the ED is performed under the ED CLIA certificate #[id number]. Result Comment: [email or web address] Performed By: #### L [id number] ####[facility] (BEAKER)[address] [place] [address] Glucose [Mass/Vol] 100 mg/dL Normal 70-105 [facility] Comment on above: Order Comment: Waive d Testing in the ED is performed under the ED CLIA certificate #[id number]. Result Comment: [email or web address] Performed By: #### L [id number] ####[facility] (BEAKER)[address] [place] [address] VITAMIN Con 12-22-2023 VITAMIN C LEVEL 35 umol/L Normal 23-114 [facility] Comment on above: Result Comment: Rachael min C concentrations lower than 11 umol/L indicate deficiency.Concentrations between 11 and 23 umol/L are consistent with amoderate risk of deficiency due to inadequate tissue stores.Vitamin C concentration is reported as micromoles per liter(umol/L). To convert concentration to milligrams per deciliter(mg/dL), multiply the result by 0.0176.This test was developed and its performance characteristicsdetermined by Lot78. It has not been cleared orapproved by the US Food and Drug Administration. This test wasperformed in a CLIA certified laboratory and is intended forclinical purposes.Performed By: [id number] [place], [place] [id number] Director: Leeroy Shah MD, PhDCLIA Number: [id number] Performed By: #### L [id number] ####[facility] ([facility])[address] [place] [address] 30on 12-21-2023 30 Normal [facility] 30 Normal [facility] BASIC METABOLIC PANELon 11-23 Anion gap [Moles/Vol] 11 mmol/L Normal 7-20 [facility] Comment on above: Performed By: #### L [id number] ####[facility] ([facility])[address] [place] [place] [address] Calcium [Mass/Vol] 8.0 mg/dL Low 8.6-10.3 [facility] Comment on above: Performed By: #### L [id number] ####[facility] ([facility])[address] [place] [address] Chloride [Moles/Vol] 104 mmol/L Normal 98-107 [facility] Comment on above: Performed By: #### L [id number] ####[facility] ([facility])[address] [place] [place] [address] CO2 [Moles/Vol] 26 mmol/L Normal 21-31 [facility] Comment on above: Performed By: #### L [id number] ####[facility] ([facility])[address] [place] [place] [address] Creatinine [Mass/Vol] 0.62 mg/dL Normal 0.60-1.20 [facility] Comment on above: Performed By: #### L [id number] ####[facility] ([facility])[address] [place] [place] [address] GLOMERULAR FILTRATION RATE ML/MIN/1.73 SQ M.PREDICTED 100.6 mL/min/1.73m*2 Normal >60.0 [facility] Comment on above: Result Comment: [facility]???s estimated glomerular filtration rate (eGFR) will [...] of individuals. Performed By: #### L [id number] ####[facility] ([facility] [place] [place] [address] Glucose [Mass/Vol] 93 mg/dL Normal 70-100 [facility] Comment on above: Performed By: #### L [id number] ####[facility] ([facility] [place] [place] [address] Potassium [Moles/Vol] 4.2 mmol/L Normal 3.5-5.1 [facility] Comment on above: Performed By: #### L [id number] ####[facility] ([facility] [place] [place] [address] Sodium [Moles/Vol] 137 mmol/L Normal 136-145 [facility] Comment on above: Performed By: #### L [id number] ####[facility] ([facility] [place] [place] [address] Urea nitrogen [Mass/Vol] 17 mg/dL Normal 7-25 [facility] Comment on above: Performed By: #### L [id number] ####[facility] ([facility])[address] [place] [place] [address] UREA NITROGEN/CREATININE (MASS RATIO) IN SER/PLAS 27.4 Normal [facility] Comment on above: Performed By: #### L [id number] ####[facility] ([facility] [place] [place] [address] CBCon 12-21-2023 Erythrocyte distribution width (RBC) [Ratio] 14.2 % Normal 11.5-15.0 [facility] Comment on above: Performed By: #### L [id number] ####[facility] ([facility])[address] [place] [place] [address] ERYTHROCYTE MEAN CORPUSCULAR HEMOGLOBIN CONCENTRATION (G/DL) BY AUTOMATED 31.1 g/dL Low 32.0-35.0 [facility] Comment on above: Performed By: #### L [id number] ####[facility] ([facility] [place] [place] [address] Hematocrit (Bld) [Volume fraction] 21.9 % Low 36.0-48.0 [facility] Comment on above: Performed By: #### L [id number] ####[facility] ([facility])[address] [place] [address] Hemoglobin (Bld) [Mass/Vol] 6.8 g/dL Low 12.0-15.0 [facility] Comment on above: Performed By: #### L [id number] ####[facility] ([facility])[address] [place] [place] [address] MCH (RBC) [Entitic mass] 31.1 pg Normal 27.0-33.0 [facility] Comment on above: Performed By: #### L [id number] ####[facility] ([facility])[address] [place] [place] [address] MCV (RBC) [Entitic vol] 100.0 fL High 82.0-98.0 [facility] Comment on above: Performed By: #### L [id number] ####[facility] ([facility])[address] [place] [place] [address] PLATELETS (10*3/UL) IN BLOOD AUTOMATED COUNT 300 10*3/uL Normal 150-400 [facility] Comment on above: Performed By: #### L [id number] ####[facility] ([facility])[address] [place] [place] [address] RBC (Bld) [#/Vol] 2.19 10*6/uL Low 3.80-5.00 [facility] Comment on above: Performed By: #### L [id number] ####[facility] ([facility])[address] [place] [place] [address] WBC (Bld) [#/Vol] 6.04 10*3/uL Normal 4.00-10.60 [facility] Comment on above: Performed By: #### L [id number] ####[facility] ([facility])[address] [place] [place] [address] MAGNESIUMon 12-21-2023 Magnesium [Mass/Vol] 2.3 mg/dL Normal 1.9-2.7 [facility] Comment on above: Performed By: #### L [id number] ####[facility] ([facility])[address] [place] [address] POCT GLUCOSE METER UNSOLICIT ED RESULTSon 12-21-2023 Glucose [Mass/Vol] 189 mg/dL High 70-105 [facility] Comment on above: Order Comment: Waive d Testing in the ED is performed under the ED CLIA certificate #[id number]. Result Comment: [email or web address] Performed By: #### L [id number] ####[facility] ([facility])[address] [place] [address] Glucose [Mass/Vol] 85 mg/dL Normal 70-105 [facility] Comment on above: Order Comment: Waive d Testing in the ED is performed under the ED CLIA certificate #[id number]. Result Comment: [email or web address] Performed By: #### L [id number] ####[facility] ([facility])[address] [place] [address] Glucose [Mass/Vol] 229 mg/dL High 70-105 [facility] Comment on above: Order Comment: Waive d Testing in the ED is performed under the ED CLIA certificate #[id number]. Result Comment: [email or web address] Performed By: #### L [id number] ####[facility] ([facility])[address] [place] [address] Glucose [Mass/Vol] 142 mg/dL High 70-105 [facility] Comment on above: Order Comment: Waive d Testing in the ED is performed under the ED CLIA certificate #[id number]. Result Comment: [email or web address] Performed By: #### L [id number] ####[facility] ([facility])[address] [place] [address] VITAMIN Con 12-21-2023 VITAMIN C LEVEL 24 umol/L Normal 23-114 [facility] Comment on above: Result Comment: Rachael min C concentrations lower than 11 umol/L indicate deficiency.Concentrations between 11 and 23 umol/L are consistent with amoderate risk of deficiency due to inadequate tissue stores.Vitamin C concentration is reported as micromoles per liter(umol/L). To convert concentration to milligrams per deciliter(mg/dL), multiply the result by 0.0176.This test was developed and its performance characteristicsdetermined by Lot78. It has not been cleared orapproved by the [place] Food and Drug Administration. This test wasperformed in a CLIA certified laboratory and is intended forclinical purposes.Performed By: [id number] [place], [place] [id number] Director: Leeroy Shah MD, PhDCLIA Number: [id number] Performed By: #### L [id number] ####[facility] ([facility])[address] [place] [address] MAGNESIUMon 12-20-2023 Magnesium [Mass/Vol] 2.2 mg/dL Normal 1.9-2.7 [facility] Comment on above: Performed By: #### L [id number] ####[facility] ([facility] [place] [address] POCT GLUCOSE METER UNSOLICIT ED RESULTSon 12-20-2023 Glucose [Mass/Vol] 140 mg/dL High 70-105 [facility] Comment on above: Order Comment: Waive d Testing in the ED is performed under the ED CLIA certificate #[id number]. Result Comment: [email or web address] Performed By: #### L [id number] ####[facility] ([facility] [place] [address] Glucose [Mass/Vol] 152 mg/dL High 70-105 [facility] Comment on above: Order Comment: Waive d Testing in the ED is performed under the ED CLIA certificate #[id number]. Result Comment: [email or web address] dic Performed By: #### L [id number] ####[facility] (BEAKER)[address] [place] [address] Glucose [Mass/Vol] 193 mg/dL High 70-105 [facility] Comment on above: Order Comment: Waive d Testing in the ED is performed under the ED CLIA certificate #[id number]. Result Comment: [email or web address] dic Performed By: #### L [id number] ####[facility] (BEAKER)[address] [place] [address] Glucose [Mass/Vol] 119 mg/dL High 70-105 [facility] Comment on above: Order Comment: Waive d Testing in the ED is performed under the ED CLIA certificate #[id number]. Result Comment: [email or web address] dic Performed By: #### L [id number] ####[facility] (BEAKER)[address] [place] [address] 30on 12-19-2023 30 The patient is Moder ately Stable - Low risk of patient condition declining or worsening The patient's goals for the shift include comfort The clinical goals for the shift include safety Normal [facility] 30 [facility] 30 [facility] 30 [facility] BASIC METABOLIC PANELon 11-23 Anion gap [Moles/Vol] 7 mmol/L Normal 7-20 [facility] Comment on above: Performed By: #### L [id number] ####[facility] (BEAKER)[address] [place] [address] Calcium [Mass/Vol] 8.1 mg/dL Low 8.6-10.3 [facility] Comment on above: Performed By: #### L [id number] ####[facility] (BEAKER)[address] [place] [address] Chloride [Moles/Vol] 103 mmol/L Normal 98-107 [facility] Comment on above: Performed By: #### L [id number] ####[facility] (BEAKER)[address] [place] [address] CO2 [Moles/Vol] 27 mmol/L Normal 21-31 [facility] Comment on above: Performed By: #### L [id number] ####[facility] (BEAKER)[address] [place] [address] Creatinine [Mass/Vol] 0.65 mg/dL Normal 0.60-1.20 [facility] Comment on above: Performed By: #### L [id number] ####[facility] ([facility])[address] [place] [place] [address] GLOMERULAR FILTRATION RATE ML/MIN/1.73 SQ M.PREDICTED 99.5 mL/min/1.73m*2 Normal >60.0 [facility] Comment on above: Result Comment: [facility]???s estimated glomerular filtration rate (eGFR) will [...] of individuals. Performed By: #### L [id number] ####[facility] ([facility])[address] [place] [address] Glucose [Mass/Vol] 116 mg/dL High 70-100 [facility] Comment on above: Performed By: #### L [id number] ####[facility] ([facility])[address] [place] [address] Potassium [Moles/Vol] 4.1 mmol/L Normal 3.5-5.1 [facility] Comment on above: Performed By: #### L [id number] ####[facility] ([facility])[address] [place] [address] Sodium [Moles/Vol] 133 mmol/L Low 136-145 [facility] Comment on above: Performed By: #### L [id number] ####[facility] ([facility])[address] [place] [address] Urea nitrogen [Mass/Vol] 20 mg/dL Normal 7-25 [facility] Comment on above: Performed By: #### L [id number] ####[facility] ([facility])[address] [place] [place] [address] UREA NITROGEN/CREATININE (MASS RATIO) IN SER/PLAS 30.8 Normal [facility] Comment on above: Performed By: #### L [id number] ####[facility] ([facility])[address] [place] [address] CBCon 12-19-2023 Erythrocyte distribution width (RBC) [Ratio] 13.2 % Normal 11.5-15.0 [facility] Comment on above: Performed By: #### L [id number] ####[facility] ([facility])[address] [place] [place] [address] ERYTHROCYTE MEAN CORPUSCULAR HEMOGLOBIN CONCENTRATION (G/DL) BY AUTOMATED 32.4 g/dL Normal 32.0-35.0 [facility] Comment on above: Performed By: #### L [id number] ####[facility] ([facility])[address] [place] [place] [address] Hematocrit (Bld) [Volume fraction] 21.6 % Low 36.0-48.0 [facility] Comment on above: Performed By: #### L [id number] ####[facility] ([facility])[address] [place] [place] [address] Hemoglobin (Bld) [Mass/Vol] 7.0 g/dL Low 12.0-15.0 [facility] Comment on above: Performed By: #### L [id number] ####[facility] ([facility])[address] [place] [place] [address] MCH (RBC) [Entitic mass] 31.5 pg Normal 27.0-33.0 [facility] Comment on above: Performed By: #### L [id number] ####[facility] ([facility] [place] [place] [address] MCV (RBC) [Entitic vol] 97.3 fL Normal 82.0-98.0 [facility] Comment on above: Performed By: #### L [id number] ####[facility] ([facility] [place] [place] [address] PLATELETS (10*3/UL) IN BLOOD AUTOMATED COUNT 183 10*3/uL Normal 150-400 [facility] Comment on above: Performed By: #### L [id number] ####[facility] ([facility])[address] [place], [place] [address] RBC (Bld) [#/Vol] 2.22 10*6/uL Low 3.80-5.00 [facility] Comment on above: Performed By: #### L [id number] ####[facility] ([facility])[address] [place], [place] [address] WBC (Bld) [#/Vol] 6.45 10*3/uL Normal 4.00-10.60 [facility] Comment on above: Performed By: #### L [id number] ####[facility] ([facility])[address] [place] [address] MAGNESIUMon 12-19-2023 Magnesium [Mass/Vol] 2.1 mg/dL Normal 1.9-2.7 [facility] Comment on above: Performed By: #### L [id number] ####[facility] ([facility])[address] [place] [address] POCT GLUCOSE METER UNSOLICIT ED RESULTSon 12-19-2023 Glucose [Mass/Vol] 181 mg/dL High 70-105 [facility] Comment on above: Order Comment: Waive d Testing in the ED is performed under the ED CLIA certificate #[id number]. Result Comment: [email or web address] Performed By: #### L [id number] ####[facility] ([facility])[address] [place] [address] Glucose [Mass/Vol] 148 mg/dL High 70-105 [facility] Comment on above: Order Comment: Waive d Testing in the ED is performed under the ED CLIA certificate #[id number]. Result Comment: bflo od Performed By: #### L [id number] ####[facility] ([facility])[address] [place] [address] Glucose [Mass/Vol] 204 mg/dL High 70-105 [facility] Comment on above: Order Comment: Waive d Testing in the ED is performed under the ED CLIA certificate #[id number]. Result Comment: bflo od Performed By: #### L [id number] ####[facility] ([facility])[address] [place] [address] Glucose [Mass/Vol] 150 mg/dL High 70-105 [facility] Comment on above: Order Comment: Waive d Testing in the ED is performed under the ED CLIA certificate #[id number]. Result Comment: bflo od Performed By: #### L [id number] ####[facility] ([facility])[address] [place] [address] 30on 12-18-2023 30 Normal [facility] 30 Normal [facility] ALBUMINon 12-18-2023 Albumin [Mass/Vol] 3.2 g/dL Low 3.5-5.7 [facility] Comment on above: Performed By: #### L [id number] ####[facility] ([facility])[address] [place] [address] BASIC METABOLIC PANELon 11-23 Anion gap [Moles/Vol] 7 mmol/L Normal 7-20 [facility] Comment on above: Performed By: #### L [id number] ####[facility] ([facility])[address] [place] [address] Calcium [Mass/Vol] 8.4 mg/dL Low 8.6-10.3 [facility] Comment on above: Performed By: #### L [id number] ####[facility] ([facility])[address] [place] [address] Chloride [Moles/Vol] 103 mmol/L Normal 98-107 [facility] Comment on above: Performed By: #### L [id number] ####[facility] ([facility])[address] [place] [address] CO2 [Moles/Vol] 27 mmol/L Normal 21-31 [facility] Comment on above: Performed By: #### L [id number] ####[facility] ([facility])[address] [place] [place] [address] Creatinine [Mass/Vol] 0.72 mg/dL Normal 0.60-1.20 [facility] Comment on above: Performed By: #### L [id number] ####[facility] ([facility])[address] [place], [place] [address] GLOMERULAR FILTRATION RATE ML/MIN/1.73 SQ M.PREDICTED 94.5 mL/min/1.73m*2 Normal >60.0 [facility] Comment on above: Result Comment: [facility]???s estimated glomerular filtration rate (eGFR) will [...] of individuals. Performed By: #### L [id number] ####[facility] ([facility])[address] [place] [place] [address] Glucose [Mass/Vol] 122 mg/dL High 70-100 [facility] Comment on above: Performed By: #### L [id number] ####[facility] ([facility])[address] [place] [place] [address] Potassium [Moles/Vol] 4.2 mmol/L Normal 3.5-5.1 [facility] Comment on above: Performed By: #### L [id number] ####[facility] ([facility])[address] [place] [place] [address] Sodium [Moles/Vol] 133 mmol/L Low 136-145 [facility] Comment on above: Performed By: #### L [id number] ####[facility] ([facility])[address] [place] [place] [address] Urea nitrogen [Mass/Vol] 20 mg/dL Normal 7-25 [facility] Comment on above: Performed By: #### L [id number] ####[facility] ([facility])[address] [place] [place] [address] UREA NITROGEN/CREATININE (MASS RATIO) IN SER/PLAS 27.8 Normal [facility] Comment on above: Performed By: #### L [id number] ####[facility] ([facility])[address] [place] [place] [address] CBCon 12-18-2023 Erythrocyte distribution width (RBC) [Ratio] 13.1 % Normal 11.5-15.0 [facility] Comment on above: Performed By: #### L [id number] ####[facility] ([facility])[address] [place] [place] [address] ERYTHROCYTE MEAN CORPUSCULAR HEMOGLOBIN CONCENTRATION (G/DL) BY AUTOMATED 32.8 g/dL Normal 32.0-35.0 [facility] Comment on above: Performed By: #### L [id number] ####[facility] ([facility])[address] [place] [place] [address] Hematocrit (Bld) [Volume fraction] 22.9 % Low 36.0-48.0 [facility] Comment on above: Performed By: #### L [id number] ####[facility] ([facility] [place] [place] [address] Hemoglobin (Bld) [Mass/Vol] 7.5 g/dL Low 12.0-15.0 [facility] Comment on above: Performed By: #### L [id number] ####[facility] ([facility])[address] [place] [place] [address] MCH (RBC) [Entitic mass] 31.5 pg Normal 27.0-33.0 [facility] Comment on above: Performed By: #### L [id number] ####[facility] (BE[facility]ER)[address] [place] [place] [address] MCV (RBC) [Entitic vol] 96.2 fL Normal 82.0-98.0 [facility] Comment on above: Performed By: #### L [id number] ####[facility] ([facility])[address] [place] [place] [address] PLATELETS (10*3/UL) IN BLOOD AUTOMATED COUNT 161 10*3/uL Normal 150-400 [facility] Comment on above: Performed By: #### L [id number] ####[facility] ([facility])[address] [place] [place] [address] RBC (Bld) [#/Vol] 2.38 10*6/uL Low 3.80-5.00 [facility] Comment on above: Performed By: #### L [id number] ####[facility] ([facility])[address] [place] [place] [address] WBC (Bld) [#/Vol] 8.15 10*3/uL Normal 4.00-10.60 [facility] Comment on above: Performed By: #### L [id number] ####[facility] ([facility])[address] [place], [place] [address] CT CHEST WO IV CONTRASTon CT CHEST WO IV CONTRAST Invalid Interpretation Code [facility] IRON AND TIBCon 12-18-2023 IRON (UG/DL) IN SER/PLAS 21 ug/dL Low 50-212 [facility] Comment on above: Performed By: #### L [id number] ####[facility] ([facility])[address] [place] [address] IRON BINDING CAPACITY (UG/DL) IN SER/PLAS 187 ug/dL Low 250-450 [facility] Comment on above: Performed By: #### L [id number] ####[facility] (BEAKER)[address] [place] [address] IRON BINDING CAPACITY.UNSATURATED (UG/DL) IN SER/PLAS 166.0 ug/dL Normal 155.0-355. 0 [facility] Comment on above: Performed By: #### L [id number] ####[facility] ([facility]ER)[address] [place] [address] IRON SATURATION (%) IN SER/PLAS 11 % Low 20-50 [facility] Comment on above: Performed By: #### L [id number] ####[facility] ([facility])[address] [place] [address] MAGNESIUMon 12-18-2023 Magnesium [Mass/Vol] 2.0 mg/dL Normal 1.9-2.7 [facility] Comment on above: Performed By: #### L [id number] ####[facility] ([facility])[address] [place] [address] NURSNOTEon 12-18-2023 NURSNOT Normal [facility] NURSNOTE Normal [facility] GLUCOSE METER UNSOLICIT ED RESULTSon 12-18-2023 Glucose [Mass/Vol] 138 mg/dL High 70-105 [facility] Comment on above: Order Comment: Waive d Testing in the ED is performed under the ED CLIA certificate #[id number]. Result Comment: larry morrow Performed By: #### L [id number] ####[facility] ([facility])[address] [place] [place] [address] Glucose [Mass/Vol] 163 mg/dL High 70-105 [facility] Comment on above: Order Comment: Waive d Testing in the ED is performed under the ED CLIA certificate #[id number]. Result Comment: [email or web address] Performed By: #### L [id number] ####[facility] ([facility])[address] [place] [place] [address] Glucose [Mass/Vol] 118 mg/dL High 70-105 [facility] Comment on above: Order Comment: Waive d Testing in the ED is performed under the ED CLIA certificate #[id number]. Result Comment: [email or web address] [email or web address] Performed By: #### L [id number] ####[facility] ([facility])[address] [place] [address] Glucose [Mass/Vol] 160 mg/dL High 70-105 [facility] Comment on above: Order Comment: Waive d Testing in the ED is performed under the ED CLIA certificate #[id number]. Result Comment: [email or web address] Performed By: #### L [id number] ####[facility] ([facility])[address] [place] [address] PROCALCITONIN TESTon 024 PROCALCITONIN IN BLOOD 0.22 ng/mL High 0.00-0.10 [facility] Comment on above: Result Comment: Susp ected [...] and initial PCT<0.5ng/mL Performed By: #### L [id number] ####[facility] ([facility])[address] [place] [address] TSHon 12-18-2023 THYROTROPIN (MIU/L) IN SER/PLAS BY DETECTION LIMIT <= 0.05 MIU/L 5.49 mIU/L Normal 0.34-5.60 [facility] Comment on above: Performed By: #### L [id number] ####[facility] ([facility] [place] [place] [address] 30on 12-17-2023 30 Normal [facility] BASIC METABOLIC PANELon 11-23 Anion gap [Moles/Vol] 8 mmol/L Normal 7-20 [facility] Comment on above: Performed By: #### L [id number] ####[facility] ([facility])[address] [place] [place] [address] Calcium [Mass/Vol] 8.5 mg/dL Low 8.6-10.3 [facility] Comment on above: Performed By: #### L [id number] ####[facility] ([facility])[address] [place] [place] [address] Chloride [Moles/Vol] 104 mmol/L Normal 98-107 [facility] Comment on above: Performed By: #### L [id number] ####[facility] ([facility])[address] [place] [place] [address] CO2 [Moles/Vol] 28 mmol/L Normal 21-31 [facility] Comment on above: Performed By: #### L [id number] ####[facility] ([facility])[address] [place] [place] [address] Creatinine [Mass/Vol] 0.68 mg/dL Normal 0.60-1.20 [facility] Comment on above: Performed By: #### L [id number] ####[facility] ([facility])[address] [place] [place] [address] GLOMERULAR FILTRATION RATE ML/MIN/1.73 SQ M.PREDICTED 98.4 mL/min/1.73m*2 Normal >60.0 [facility] Comment on above: Result Comment: [facility]???s estimated glomerular filtration rate (eGFR) will [...] of individuals. Performed By: #### L [id number] ####[facility] ([facility] [place] [address] Glucose [Mass/Vol] 110 mg/dL High 70-100 [facility] Comment on above: Performed By: #### L [id number] ####[facility] ([facility])[address] [place] [address] Potassium [Moles/Vol] 3.4 mmol/L Low 3.5-5.1 [facility] Comment on above: Performed By: #### L [id number] ####[facility] ([facility])[address] [place] [address] Sodium [Moles/Vol] 137 mmol/L Normal 136-145 [facility] Comment on above: Performed By: #### L [id number] ####[facility] ([facility] [place] [address] Urea nitrogen [Mass/Vol] 15 mg/dL Normal 7-25 [facility] Comment on above: Performed By: #### L [id number] ####[facility] ([facility] [place] [address] UREA NITROGEN/CREATININE (MASS RATIO) IN SER/PLAS 22.1 Normal [facility] Comment on above: Performed By: #### L [id number] ####[facility] ([facility])[address] [place] [address] CBCon 12-17-2023 Erythrocyte distribution width (RBC) [Ratio] 13.0 % Normal 11.5-15.0 [facility] Comment on above: Performed By: #### L [id number] ####[facility] ([facility])[address] [place] [address] ERYTHROCYTE MEAN CORPUSCULAR HEMOGLOBIN CONCENTRATION (G/DL) BY AUTOMATED 33.5 g/dL Normal 32.0-35.0 [facility] Comment on above: Performed By: #### L [id number] ####[facility] ([facility])[address] [place] [place] [address] Hematocrit (Bld) [Volume fraction] 23.0 % Low 36.0-48.0 [facility] Comment on above: Performed By: #### L [id number] ####[facility] ([facility])[address] [place] [place] [address] Hemoglobin (Bld) [Mass/Vol] 7.7 g/dL Low 12.0-15.0 [facility] Comment on above: Performed By: #### L [id number] ####[facility] ([facility])[address] [place] [place] [address] MCH (RBC) [Entitic mass] 31.3 pg Normal 27.0-33.0 [facility] Comment on above: Performed By: #### L [id number] ####[facility] ([facility])[address] [place] [place] [address] MCV (RBC) [Entitic vol] 93.5 fL Normal 82.0-98.0 [facility] Comment on above: Performed By: #### L [id number] ####[facility] ([facility])[address] [place] [place] [address] PLATELETS (10*3/UL) IN BLOOD AUTOMATED COUNT 135 10*3/uL Low 150-400 [facility] Comment on above: Performed By: #### L [id number] ####[facility] ([facility])[address] [place] [place] [address] RBC (Bld) [#/Vol] 2.46 10*6/uL Low 3.80-5.00 [facility] Comment on above: Performed By: #### L [id number] ####[facility] ([facility])[address] [place] [place] [address] WBC (Bld) [#/Vol] 9.45 10*3/uL Normal 4.00-10.60 [facility] Comment on above: Performed By: #### L [id number] ####[facility] ([facility] [place] [address] IRON AND TIBCon 12-17-2023 IRON (UG/DL) IN SER/PLAS 28 ug/dL Low 50-212 [facility] Comment on above: Performed By: #### L [id number] ####[facility] ([facility])[address] [place] [address] IRON BINDING CAPACITY (UG/DL) IN SER/PLAS 190 ug/dL Low 250-450 [facility] Comment on above: Performed By: #### L [id number] ####[facility] ([facility])[address] [place] [address] IRON BINDING CAPACITY.UNSATURATED (UG/DL) IN SER/PLAS 162.0 ug/dL Normal 155.0-355. 0 [facility] Comment on above: Performed By: #### L [id number] ####[facility] ([facility])[address] [place] [address] IRON SATURATION (%) IN SER/PLAS 15 % Low 20-50 [facility] Comment on above: Performed By: #### L [id number] ####[facility] ([facility])[address] [place] [address] MAGNESIUMon 12-17-2023 Magnesium [Mass/Vol] 2.0 mg/dL Normal 1.9-2.7 [facility] Comment on above: Performed By: #### L [id number] ####[facility] ([facility])[address] [place] [address] Orders Onlyon 12-17-2023 Orders Only Normal [facility] POCT GLUCOSE METER UNSOLICIT ED RESULTSon 12-17-2023 Glucose [Mass/Vol] 178 mg/dL High 70-105 [facility] Comment on above: Order Comment: Waive d Testing in the ED is performed under the ED CLIA certificate #[id number]. Result Comment: [email or web address] Performed By: #### L [id number] ####[facility] ([facility])[address] [place] [address] Glucose [Mass/Vol] 181 mg/dL High 70-105 [facility] Comment on above: Order Comment: Waive d Testing in the ED is performed under the ED CLIA certificate #[id number]. Result Comment: [email or web address] Performed By: #### L [id number] ####[facility] ([facility])[address] [place] [address] Glucose [Mass/Vol] 221 mg/dL High 70-105 [facility] Comment on above: Order Comment: Waive d Testing in the ED is performed under the ED CLIA certificate #[id number]. Result Comment: clum an Performed By: #### L [id number] ####[facility] ([facility])[address] [place] [address] Glucose [Mass/Vol] 166 mg/dL High 70-105 [facility] Comment on above: Order Comment: Waive d Testing in the ED is performed under the ED CLIA certificate #[id number]. Result Comment: clum an Performed By: #### L [id number] ####[facility] ([facility])[address] [place] [address] Glucose [Mass/Vol] 152 mg/dL High 70-105 [facility] Comment on above: Order Comment: Waive d Testing in the ED is performed under the ED CLIA certificate #[id number]. Result Comment: clum an Performed By: #### L [id number] ####[facility] ([facility])[address] [place] [address] Glucose [Mass/Vol] 154 mg/dL High 70-105 [facility] Comment on above: Order Comment: Waive d Testing in the ED is performed under the ED CLIA certificate #[id number]. Result Comment: cdav ies Performed By: #### L [id number] ####[facility] ([email or web address])[address] [place] [address] Glucose [Mass/Vol] 153 mg/dL High 70-105 [facility] Comment on above: Order Comment: Waive d Testing in the ED is performed under the ED CLIA certificate #[id number]. Result Comment: [email or web address] Performed By: #### L [id number] ####[facility] (BEAKER)[address] [place] [address] Glucose [Mass/Vol] 160 mg/dL High 70-105 [facility] Comment on above: Order Comment: Waive d Testing in the ED is performed under the ED CLIA certificate #[id number]. Result Comment: cdav ies Performed By: #### L [id number] ####[facility] (BEAKER)[address] [place] [address] Glucose [Mass/Vol] 147 mg/dL High 70-105 [facility] Comment on above: Order Comment: Waive d Testing in the ED is performed under the ED CLIA certificate #[id number]. Result Comment: cdav ies Performed By: #### L [id number] ####[facility] (BEAKER)[address] [place] [address] Glucose [Mass/Vol] 129 mg/dL High 70-105 [facility] Comment on above: Order Comment: Waive d Testing in the ED is performed under the ED CLIA certificate #[id number]. Result Comment: cdav ies Performed By: #### L [id number] ####[facility] (BEAKER)[address] [place] [address] Glucose [Mass/Vol] 136 mg/dL High 70-105 [facility] Comment on above: Order Comment: Waive d Testing in the ED is performed under the ED CLIA certificate #[id number]. Result Comment: cdav ies Performed By: #### L [id number] ####[facility] (BEAKER)[address] [place] [address] Glucose [Mass/Vol] 147 mg/dL High 70-105 [facility] Comment on above: Order Comment: Waive d Testing in the ED is performed under the ED CLIA certificate #[id number]. Result Comment: cdav ies Performed By: #### L [id number] ####[facility] ([facility])[address] [place] [address] Glucose [Mass/Vol] 161 mg/dL High 70-105 [facility] Comment on above: Order Comment: Waive d Testing in the ED is performed under the ED CLIA certificate #[id number]. Result Comment: cdav ies Performed By: #### L [id number] ####[facility] ([facility])[address] [place] [address] 30on 12-16-2023 30 Normal [facility] 30 Normal [facility] ANESon 12-16-2023 ANES [facility] ANTI-XA (HEPARIN LEVEL)on HEPARIN UNFRACTIONATED (U/ML) IN PPP BY CHROMOGENIC METHOD <0.10 Invalid Interpretation Code 0.3-0.7 [facility] Comment on above: Result Comment: Rosa roxaban and Apixaban will interfere with the anti Xa assay used to monitor UFH and LMWH. Performed By: #### L [id number] ####[facility] ([facility])[address] [place] [address] APTTon 12-16-2023 ACTIVATED PARTIAL THROMBOPLASTIN TIME IN PPP BY COAGULATION ASSAY 27.7 Seconds Normal 25.0-35.0 [facility] Comment on above: Result Comment: Clin ical significance of the APTT is questionable in the presence of heparin. Performed By: #### L [id number] ####[facility] ([facility])[address] [place] [address] BASIC METABOLIC PANELon 11-23 Anion gap [Moles/Vol] 10 mmol/L Normal 7-20 [facility] Comment on above: Performed By: #### L [id number] ####[facility] ([facility])[address] [place] [address] Calcium [Mass/Vol] 8.5 mg/dL Low 8.6-10.3 [facility] Comment on above: Performed By: #### L [id number] ####[facility] (BEAKER)[address] [place] [address] Chloride [Moles/Vol] 108 mmol/L High 98-107 [facility] Comment on above: Performed By: #### L [id number] ####[facility] (BEAKER)[address] [place] [address] CO2 [Moles/Vol] 27 mmol/L Normal 21-31 [facility] Comment on above: Performed By: #### L [id number] ####[facility] ([facility] [place] [address] Creatinine [Mass/Vol] 0.80 mg/dL Normal 0.60-1.20 [facility] Comment on above: Performed By: #### L [id number] ####[facility] ([facility])[address] [place] [place] [address] GLOMERULAR FILTRATION RATE ML/MIN/1.73 SQ M.PREDICTED 83.3 mL/min/1.73m*2 Normal >60.0 [facility] Comment on above: Result Comment: [facility]???s estimated glomerular filtration rate (eGFR) will [...] of individuals. Performed By: #### L [id number] ####[facility] (BEAKER)[address] [place] [address] Glucose [Mass/Vol] 159 mg/dL High 70-100 [facility] Comment on above: Performed By: #### L [id number] ####[facility] (BEAKER)[address] [place] [address] Potassium [Moles/Vol] 4.3 mmol/L Normal 3.5-5.1 [facility] Comment on above: Performed By: #### L [id number] ####[facility] ([facility] [place] [address] Sodium [Moles/Vol] 141 mmol/L Normal 136-145 [facility] Comment on above: Performed By: #### L [id number] ####[facility] ([facility] [place] [address] Urea nitrogen [Mass/Vol] 15 mg/dL Normal 7-25 [facility] Comment on above: Performed By: #### L [id number] ####[facility] ([facility])[address] [place] [address] UREA NITROGEN/CREATININE (MASS RATIO) IN SER/PLAS 18.8 Normal [facility] Comment on above: Performed By: #### L [id number] ####[facility] ([facility] [place] [address] CBCon 12-16-2023 Erythrocyte distribution width (RBC) [Ratio] 13.0 % Normal 11.5-15.0 [facility] Comment on above: Performed By: #### L [id number] ####[facility] ([facility] [place] [place] [address] ERYTHROCYTE MEAN CORPUSCULAR HEMOGLOBIN CONCENTRATION (G/DL) BY AUTOMATED 33.7 g/dL Normal 32.0-35.0 [facility] Comment on above: Performed By: #### L [id number] ####[facility] ([facility] [place] [address] Hematocrit (Bld) [Volume fraction] 24.3 % Low 36.0-48.0 [facility] Comment on above: Performed By: #### L [id number] ####[facility] (BEAKER)[address] [place] [address] Hemoglobin (Bld) [Mass/Vol] 8.2 g/dL Low 12.0-15.0 [facility] Comment on above: Performed By: #### L [id number] ####[facility] ([facility] [place] [address] MCH (RBC) [Entitic mass] 31.1 pg Normal 27.0-33.0 [facility] Comment on above: Performed By: #### L [id number] ####[facility] ([facility] [place] [address] MCV (RBC) [Entitic vol] 92.0 fL Normal 82.0-98.0 [facility] Comment on above: Performed By: #### L [id number] ####[facility] ([facility])[address] [place] [address] PLATELETS (10*3/UL) IN BLOOD AUTOMATED COUNT 130 10*3/uL Low 150-400 [facility] Comment on above: Performed By: #### L [id number] ####[facility] ([facility])[address] [place] [address] RBC (Bld) [#/Vol] 2.64 10*6/uL Low 3.80-5.00 [facility] Comment on above: Performed By: #### L [id number] ####[facility] ([facility])[address] [place] [address] WBC (Bld) [#/Vol] 6.53 10*3/uL Normal 4.00-10.60 [facility] Comment on above: Performed By: #### L [id number] ####[facility] ([facility])[address] [place] [address] CONSULTon 12-16-2023 CONSULT Normal [facility] MAGNESIUMon 12-16-2023 Magnesium [Mass/Vol] 2.2 mg/dL Normal 1.9-2.7 [facility] Comment on above: Performed By: #### L [id number] ####[facility] (BEAKER)[address] [place] [address] PHOSPHORUSon 12-16-2023 Magnesium [Mass/Vol] 3.6 mg/dL Normal 2.5-5.0 [facility] Comment on above: Performed By: #### L [id number] ####[facility] ([facility])[address] [place] [address] POCT GLUCOSE METER UNSOLICIT ED RESULTSon 12-16-2023 Glucose [Mass/Vol] 163 mg/dL High 70-105 [facility] Comment on above: Order Comment: Waive d Testing in the ED is performed under the ED CLIA certificate #[id number]. Result Comment: cdav ies Performed By: #### L [id number] ####[facility] ([facility])[address] [place] [address] Glucose [Mass/Vol] 138 mg/dL High 70-105 [facility] Comment on above: Order Comment: Waive d Testing in the ED is performed under the ED CLIA certificate #[id number]. Result Comment: cdav ies Performed By: #### L [id number] ####[facility] ([facility])[address] [place] [address] Glucose [Mass/Vol] 105 mg/dL Normal 70-105 [facility] Comment on above: Order Comment: Waive d Testing in the ED is performed under the ED CLIA certificate #[id number]. Result Comment: cdav ies Performed By: #### L [id number] ####[facility] ([facility])[address] [place] [address] Glucose [Mass/Vol] 77 mg/dL Normal 70-105 [facility] Comment on above: Order Comment: Waive d Testing in the ED is performed under the ED CLIA certificate #[id number]. Result Comment: cdav ies Performed By: #### L [id number] ####[facility] ([facility])[address] [place] [address] Glucose [Mass/Vol] 128 mg/dL High 70-105 [facility] Comment on above: Order Comment: Waive d Testing in the ED is performed under the ED CLIA certificate #[id number]. Result Comment: tlin [email or web address] Performed By: #### L [id number] ####[facility] (BEAKER)[address] [place] [address] Glucose [Mass/Vol] 155 mg/dL High 70-105 [facility] Comment on above: Order Comment: Waive d Testing in the ED is performed under the ED CLIA certificate #[id number]. Result Comment: tlin [email or web address] Performed By: #### L [id number] ####[facility] (AKER)[address] [place] [address] Glucose [Mass/Vol] 160 mg/dL High 70-105 [facility] Comment on above: Order Comment: Waive d Testing in the ED is performed under the ED CLIA certificate #[id number]. Result Comment: tlin [email or web address] Performed By: #### L [id number] ####[facility] (AKER)[address] [place] [address] Glucose [Mass/Vol] 126 mg/dL High 70-105 [facility] Comment on above: Order Comment: Waive d Testing in the ED is performed under the ED CLIA certificate #[id number]. Result Comment: kwag [email or web address] Performed By: #### L [id number] ####[facility] ([facility])[address] [place] [address] Glucose [Mass/Vol] 125 mg/dL High 70-105 [facility] Comment on above: Order Comment: Waive d Testing in the ED is performed under the ED CLIA certificate #[id number]. Result Comment: tlin [email or web address] Performed By: #### L [id number] ####[facility] (BEAKER)[address] [place] [address] Glucose [Mass/Vol] 173 mg/dL High 70-105 [facility] Comment on above: Order Comment: Waive d Testing in the ED is performed under the ED CLIA certificate #[id number]. Result Comment: tlin [email or web address] Performed By: #### L [id number] ####[facility] (BEAKER)[address] [place] [address] Glucose [Mass/Vol] 160 mg/dL High 70-105 [facility] Comment on above: Order Comment: Waive d Testing in the ED is performed under the ED CLIA certificate #[id number]. Result Comment: tlin [email or web address] Performed By: #### L [id number] ####[facility] (BEAKER)[address] [place] [address] Glucose [Mass/Vol] 189 mg/dL High 70-105 [facility] Comment on above: Order Comment: Waive d Testing in the ED is performed under the ED CLIA certificate #[id number]. Result Comment: tlin [email or web address] Performed By: #### L [id number] ####[facility] (BEAKER)[address] [place] [address] Glucose [Mass/Vol] 172 mg/dL High 70-105 [facility] Comment on above: Order Comment: Waive d Testing in the ED is performed under the ED CLIA certificate #[id number]. Result Comment: tlin [email or web address] Performed By: #### L [id number] ####[facility] (BEAKER)[address] [place] [address] Glucose [Mass/Vol] 188 mg/dL High 70-105 [facility] Comment on above: Order Comment: Waive d Testing in the ED is performed under the ED CLIA certificate #[id number]. Result Comment: tlin [email or web address] Performed By: #### L [id number] ####[facility] (BEAKER)[address] [place] [address] Glucose [Mass/Vol] 192 mg/dL High 70-105 [facility] Comment on above: Order Comment: Waive d Testing in the ED is performed under the ED CLIA certificate #[id number]. Result Comment: kwag [email or web address] Performed By: #### L [id number] ####[facility] (BEAKER)[address] [place] [address] Glucose [Mass/Vol] 233 mg/dL High 70-105 [facility] Comment on above: Order Comment: Waive d Testing in the ED is performed under the ED CLIA certificate #[id number]. Result Comment: cdav ies Performed By: #### L [id number] ####[facility] (BEAKER)[address] [place] [address] Glucose [Mass/Vol] 198 mg/dL High 70-105 [facility] Comment on above: Order Comment: Waive d Testing in the ED is performed under the ED CLIA certificate #[id number]. Result Comment: cdav ies Performed By: #### L [id number] ####[facility] (BEAKER)[address] [place] [address] Glucose [Mass/Vol] 193 mg/dL High 70-105 [facility] Comment on above: Order Comment: Waive d Testing in the ED is performed under the ED CLIA certificate #[id number]. Result Comment: cdav ies Performed By: #### L [id number] ####[facility] (BEAKER)[address] [place] [address] Glucose [Mass/Vol] 186 mg/dL High 70-105 [facility] Comment on above: Order Comment: Waive d Testing in the ED is performed under the ED CLIA certificate #[id number]. Result Comment: cdav ies Performed By: #### L [id number] ####[facility] (BEAKER)[address] [place] [address] Glucose [Mass/Vol] 208 mg/dL High 70-105 [facility] Comment on above: Order Comment: Waive d Testing in the ED is performed under the ED CLIA certificate #[id number]. Result Comment: cdav ies Performed By: #### L [id number] ####[facility] (BEAKER)[address] [place] [address] Glucose [Mass/Vol] 188 mg/dL High 70-105 [facility] Comment on above: Order Comment: Waive d Testing in the ED is performed under the ED CLIA certificate #[id number]. Result Comment: cdav ies Performed By: #### L [id number] ####[facility] ([employer])[address] [place] [address] Glucose [Mass/Vol] 177 mg/dL High 70-105 [facility] Comment on above: Order Comment: Waive d Testing in the ED is performed under the ED CLIA certificate #[id number]. Result Comment: cdav ies Performed By: #### L [id number] ####[facility] ([employer])[address] [place] [address] PROTIME-INRon 12-16-2023 INR IN PPP BY COAGULATION ASSAY 1.19 High 0.90-1.10 [facility] Comment on above: Result Comment: ACCC [...] CHEST 1995;108:[id number]. Performed By: #### L [id number] ####[facility] ([employer])[address] [place] [address] PROTHROMBIN TIME (PT) IN PPP BY COAGULATION ASSAY 15.0 Seconds High 12.3-14.8 [facility] Comment on above: Performed By: #### L [id number] ####[facility] ([employer])[address] [place] [address] 30on 12-15-2023 30 Normal [facility] ARTERIAL BLOOD GAS WITH IONI ZED CALCIUMon 12-15-2023 Base excess Calc (Bld) [Moles/Vol] -2.2000 mmol/L Low -2.0-3.0 [facility] Comment on above: Performed By: #### L [id number] ####[facility] [id number] [place] [address] [facility] CALCIUM IONIZED (MMOL/L) IN BLOOD 1.22 mmol/L Normal 1.15-1.33 [facility] Comment on above: Performed By: #### L [id number] ####[facility] [id number] [place] [address] [facility] CO2 (Bld) [Partial pressure] 37 mm[Hg] Normal 35-48 [facility] Comment on above: Performed By: #### L [id number] ####[facility] [id number] [place] [address] [facility] HCO3 (Bld) [Moles/Vol] 22.4 mmol/L Normal 21.0-28.0 [facility] Comment on above: Performed By: #### L [id number] ####[facility] [id number] [place] [address] [facility] LPM 3 Normal [facility] Comment on above: Performed By: #### L [id number] ####[facility] [id number] [place] [address] [facility] Oxygen (Bld) [Partial pressure] 106 mm[Hg] High 83-100 [facility] Comment on above: Performed By: #### L [id number] ####[facility] [id number] [place] [address] [facility] OXYGEN SATURATION (%) IN ARTERIAL BLOOD 99.0 % High 94.0-98.0 [facility] Comment on above: Performed By: #### L [id number] ####[facility] [id number] [place] [address] [facility] pH (Bld) 7.39 [pH] Normal 7.35-7.45 [facility] Comment on above: Performed By: #### L [id number] ####[facility] [id number] [place] [address] [place] SOURCE OF OXYGEN Nasal cannula Normal [facility] Comment on above: Performed By: #### L [id number] ####[facility] [id number] [place] [address] [facility] POCT GLUCOSE METER UNSOLICIT ED RESULTSon 12-15-2023 Glucose [Mass/Vol] 171 mg/dL High 70-105 [facility] Comment on above: Order Comment: Waive d Testing in the ED is performed under the ED CLIA certificate #[id number]. Result Comment: cdav ies Performed By: #### L [id number] ####[facility] ([facility])[address] [place] [address] Glucose [Mass/Vol] 184 mg/dL High 70-105 [facility] Comment on above: Order Comment: Waive d Testing in the ED is performed under the ED CLIA certificate #[id number]. Result Comment: cdav ies Performed By: #### L [id number] ####[facility] ([facility] [place] [address] Glucose [Mass/Vol] 166 mg/dL High 70-105 [facility] Comment on above: Order Comment: Waive d Testing in the ED is performed under the ED CLIA certificate #[id number]. Result Comment: cdav ies Performed By: #### L [id number] ####[facility] (BEAKER)[address] [place] [address] Glucose [Mass/Vol] 145 mg/dL High 70-105 [facility] Comment on above: Order Comment: Waive d Testing in the ED is performed under the ED CLIA certificate #[id number]. Result Comment: cdav ies Performed By: #### L [id number] ####[facility] (BEAKER)[address] [facility] [place] [place] [address] BNP ser/plasOrdered By: Maylin mcknight Melanie on 12-04-2023 Natriuretic peptide B (Bld) [Mass/Vol] 648.0 pg/mL High 5-100 [facility] Comment on above: Result Comment: PERF ORMED BY: [place] [address] PATHOLOGIST [employer] HARVINDER GAGE M.D. Performed By: #### V ITD+D2+D3, THYROID PROF II #### [facility] , #### CMP, CBC #### [facility] [address] [place] [address] [place] Troponin I High Sensitivityo n 12-04-2023 Troponin I High Sensitivity 36.1 pg/mL High 0.0-15.0 [facility] Comment on above: Result Comment: PERF ORMED BY: [place] [address] PATHOLOGIST [employer] INTERN HARVINDER GAGE M.D. Performed By: #### V ITD+D2+D3, THYROID PROF II #### [facility] , #### CMP, CBC #### [facility] [address] [place] [address] [place] Troponin I.cardiac [Mass/vol ume] in Serum or Plasma by Detection limit <= 0.01 ng/Ordered By: Gale Navarro on 12-04-2023 Troponin I.cardiac DL <= 0.01 ng/mL [Mass/Vol] 36.1 pg/mL High 0.0-15.0 [facility] Alanine aminotransferase [En zymatic activity/volume] in Serum or PlasmaOrdered By: Barby Chen on 12-02-2023 ALT [Catalytic activity/Vol] 15 U/L [facility] Comment on above: Performed By: #### E SR, CBC, CMP #### [facility] [address] [place] [address] [place] Albumin [Mass/volume] in Ser um or Plasma by Bromocresol green (BCG) dye binding methoOrdered By: Barby Chen on 12-02-2023 Albumin BCG dye [Mass/Vol] 4.3 g/dL 3.5-5.7 [facility] Alkaline phosphatase [Enzyma tic activity/volume] in Serum or PlasmaOrdered By: Barby Chen on 12-02-2023 ALP [Catalytic activity/Vol] 87 U/L 34-104 [facility] Comment on above: Result Comment: PERF ORMED BY: [place] [address] PATHOLOGIST [employer] INTER[employer] HARVINDER GAGE M.D. Performed By: #### E SR, CBC, CMP #### [address] Aspartate aminotransferase [ Enzymatic activity/volume] in Serum or PlasmaOrdered By: Barby Chen on 12-02-2023 AST [Catalytic activity/Vol] 20 U/L 13-39 [facility] Comment on above: Performed By: #### E SR, CBC, CMP #### [address] Automated basophil %Ordered By: Barby Chen on 12-02-2023 Basophils/100 WBC (Bld) 0.9 % . [facility] Comment on above: Performed By: #### E SR, CBC, CMP #### [address] Automated basophil countOrde red By: Barby Chen on 12-02-2023 Basophils (Bld) [#/Vol] 0.1 10*3/uL 0.0-0.2 [facility] Comment on above: Performed By: #### E SR, CBC, CMP #### [address] Automated blood monocyte cou ntOrdered By: Barby Chen on 12-02-2023 Monocytes (Bld) [#/Vol] 0.5 10*3/uL 0.0-0.8 [facility] Comment on above: Performed By: #### E SR, CBC, CMP #### [address] Automated eosinophil %Ordere d By: Barby Chen on 12-02-2023 Eosinophils/100 WBC (Bld) 0.1 % . [facility] Comment on above: Performed By: #### E SR, CBC, CMP #### [facility] [address] Automated eosinophil countOr dered By: Barby Chen on 12-02-2023 Eosinophils (Bld) [#/Vol] 0.0 10*3/uL 0.0-0.45 [facility] Comment on above: Performed By: #### E SR, CBC, CMP #### [facility] [address] Automated monocyte %Ordered By: Barby Chen on 12-02-2023 Monocytes/100 WBC (Bld) 6.3 % . [facility] Comment on above: Performed By: #### E SR, CBC, CMP #### [facility] [address] Automated neutrophil %Ordere d By: Barby Chen on 12-02-2023 Neutrophils/100 WBC (Bld) 77.8 % . [facility] Comment on above: Performed By: #### E SR, CBC, CMP #### [facility] [address] Bilirubin.total [Mass/volume ] in Serum or PlasmaOrdered By: Barby Chen on 12-02-2023 Bilirubin [Mass/Vol] 0.6 mg/dL 0.3-1.0 [facility] Comment on above: Performed By: #### E SR, CBC, CMP #### [facility] [address] Calcium [Mass/volume] in Ser um or PlasmaOrdered By: Barby Chen on 12-02-2023 Calcium [Mass/Vol] 9.5 mg/dL 8.6-10.3 [facility] Comment on above: Performed By: #### E SR, CBC, CMP #### [facility] [address] Carbon dioxide, total [Moles /volume] in Serum or PlasmaOrdered By: Barby Chen on 12-02-2023 CO2 [Moles/Vol] 27.8 mmol/L 21.0-31.0 [facility] Comment on above: Performed By: #### E SR, CBC, CMP #### [address] Chloride [Moles/volume] in S davi or PlasmaOrdered By: Barby Chen on 12-02-2023 Chloride [Moles/Vol] 98 mmol/L 98-107 [facility] Comment on above: Performed By: #### E SR, CBC, CMP #### [address] Complete Blood Count Auto Di ffon 12-02-2023 Mean Corpuscular HGB Conc 34.7 g/dL Normal 32.0-35.0 [facility] Comment on above: Performed By: #### E SR, CBC, CMP #### [address] NRBC% 0.1 /100{WBC} Normal 0-0.5 [facility] Comment on above: Performed By: #### E SR, CBC, CMP #### [address] Comprehensive Metabolic Pane kirit 12-02-2023 Albumin [Mass/Vol] 4.3 g/dL Normal 3.5-5.7 [facility] Comment on above: Performed By: #### E SR, CBC, CMP #### [place] [address] [place] GFR/1.73 sq M.predicted MDRD (S/P/Bld) [Vol rate/Area] mL/min/{1.73_m2} Normal [facility] Comment on above: Performed By: #### E SR, CBC, CMP #### [address] Creatinine [Mass/volume] in Serum or PlasmaOrdered By: Barby Chen on 12-02-2023 Creatinine [Mass/Vol] 0.88 mg/dL 0.60-1.20 [facility] Comment on above: Performed By: #### E SR, CBC, CMP #### [address] Erythrocyte Sedimentation Ra antonio 12-02-2023 ESR (Bld) [Velocity] 37 mm/h High 0-29 [facility] Comment on above: Result Comment: PERF ORMED BY: [place] [address] PATHOLOGIST [employer] INTERN HARVINDER GAGE M.D. Performed By: #### V ITD+D2+D3, THYROID PROF II #### [facility] , #### CMP, CBC #### [address] Erythrocyte distribution wid th [Ratio] by Automated countOrdered By: Barby hCen on 12-02-2023 Erythrocyte distribution width (RBC) [Ratio] 13.3 % 11.9-15.3 [facility] Comment on above: Performed By: #### E SR, CBC, CMP #### [address] Erythrocyte sedimentation ra te by Photometric methodOrdered By: Barby Chen on 12-02-2023 ESR Photometric method (Bld) [Velocity] 37 mm/hr High 0-29 [facility] Erythrocytes [#/volume] in B lood by Automated countOrdered By: Barby Chen on 12-02-2023 RBC (Bld) [#/Vol] 4.97 10*6/uL 3.60-5.00 [facility] Comment on above: Performed By: #### E SR, CBC, CMP #### [address] Glucose [Mass/volume] in Ser um or PlasmaOrdered By: Barby Chen on 12-02-2023 Glucose [Mass/Vol] 126 mg/dL High 70-100 [facility] Comment on above: ADA recommended refe rence rangeRandom Glucose Reference Range is dependent on time and content of last meal. Glucose of more than 200 mg/dL in a nonstressed, ambulatory subject supports the diagnosis of Diabetes Mellitus. Result Comment: [place] Glucose Reference Range is dependent on time and content of last meal. Glucose of more than 200 mg/dL in a nonstressed, ambulatory subject supports the diagnosis of Diabetes Mellitus. ADA recommended reference range Performed By: #### E SR, CBC, CMP #### [address] Hematocrit [Volume Fraction] of Blood by Automated countOrdered By: Barby Chen on 12-02-2023 Hematocrit (Bld) [Volume fraction] 45.3 % 34.0-46.4 [facility] Comment on above: Performed By: #### E SR, CBC, CMP #### [address] Hemoglobin [Mass/volume] in BloodOrdered By: Barby Chen on 12-02-2023 Hemoglobin (Bld) [Mass/Vol] 15.7 g/dL High 11.8-15.4 [facility] Comment on above: Performed By: #### E SR, CBC, CMP #### [address] Leukocytes [#/volume] correc chantelle for nucleated erythrocytes in Blood by Automated counOrdered By: Barby Chen on 12-02-2023 WBC corrected for nucl RBC Auto (Bld) [#/Vol] 7.9 10*3/uL 3.8-11.6 [facility] Leukocytes [#/volume] in Blo od by Automated countOrdered By: Barby Chen on 12-02-2023 WBC (Bld) [#/Vol] 7.9 10*3/uL 3.8-11.6 [facility] Comment on above: Performed By: #### E SR, CBC, CMP #### [place] [address] [place] Lymphocytes [#/volume] in Bl ood by Automated countOrdered By: Barby Chen on 12-02-2023 Lymphocytes (Bld) [#/Vol] 1.2 10*3/uL 1.00-4.8 [facility] Comment on above: Performed By: #### E SR, CBC, CMP #### [address] Lymphocytes/100 leukocytes i n Blood by Automated countOrdered By: Barby Chen on 12-02-2023 Lymphocytes/100 WBC (Bld) 14.9 % . [facility] Comment on above: Performed By: #### E SR, CBC, CMP #### [address] MCH [Entitic mass] by Automa chantelle countOrdered By: Barby Chen on 12-02-2023 MCH (RBC) [Entitic mass] 31.6 pg 24.7-34.3 [facility] Comment on above: Performed By: #### E SR, CBC, CMP #### [address] MCHC Auto (RBC) [Mass/Vol]Or dered By: Barby Chen on 12-02-2023 MCHC (RBC) [Mass/Vol] 34.7 g/dL 32.0-35.0 [facility] MCV [Entitic volume] by Auto mated countOrdered By: Barby Chen on 12-02-2023 MCV (RBC) [Entitic vol] 91.1 fL 80-100 [facility] Comment on above: Performed By: #### E SR, CBC, CMP #### [address] Neutrophils [#/volume] in Bl ood by Automated countOrdered By: Barby Chen on 12-02-2023 Neutrophils (Bld) [#/Vol] 6.2 10*3/uL 1.8-7.7 [facility] Comment on above: Performed By: #### E SR, CBC, CMP #### [address] No Panel InformationOrdered By: Barby Chen on 12-02-2023 Estimated GFR (CKD-EPI) > 60.0 mL/Min [facility] Creatinine Clearance (Chem N/A [facility] Nucleated erythrocytes [Pres ence] in Blood by Automated countOrdered By: Barby Chen on 12-02-2023 Nucleated RBC Auto Ql (Bld) 0.1 /100{WBC} 0-0.5 [facility] Platelet mean volume [Entiti c volume] in Blood by Automated countOrdered By: Barby Chen on 12-02-2023 Platelet mean volume (Bld) [Entitic vol] 7.6 fL 6.3-10.7 [facility] Comment on above: Performed By: #### E SR, CBC, CMP #### [facility] [address] [place] [address] Platelets [#/volume] in Bloo d by Automated countOrdered By: Barby Chen on 12-02-2023 Platelets (Bld) [#/Vol] 301 10*3/uL 150-450 [facility] Comment on above: Performed By: #### E SR, CBC, CMP #### [facility] [address] [place] [address] [place] Potassium [Moles/volume] in Serum or PlasmaOrdered By: Barby Chen on 12-02-2023 Potassium [Moles/Vol] 4.4 mmol/L 3.5-5.1 [facility] Comment on above: Performed By: #### E SR, CBC, CMP #### [facility] [address] [place] [address] [place] Protein [Mass/volume] in Ser um or PlasmaOrdered By: Barby Chen on 12-02-2023 Protein [Mass/Vol] 7.3 g/dL 6.4-8.9 [facility] Comment on above: Performed By: #### E SR, CBC, CMP #### [facility] [address] [place] [address] Serum globulin measurement b y calculation (mass/volume)Ordered By: Barby Chen on 12-02-2023 Globulin (S) [Mass/Vol] 3.0 g/dL [facility] Comment on above: Performed By: #### E SR, CBC, CMP #### [facility] [address] [place] [address] Serum or plasma albumin/glob ulin mass ratioOrdered By: Barby Chen on 12-02-2023 Albumin/Globulin [Mass ratio] 1.4 {ratio} [facility] Comment on above: Performed By: #### E SR, CBC, CMP #### [address] Serum or plasma anion gap de terminationOrdered By: Barby Chen on 12-02-2023 Anion gap [Moles/Vol] 9.6 mmol/L 6.0-15.0 [facility] Comment on above: Performed By: #### E SR, CBC, CMP #### [address] Sodium [Moles/volume] in Ser um or PlasmaOrdered By: Barby Chen on 12-02-2023 Sodium [Moles/Vol] 131 mmol/L Low 136-145 [facility] Comment on above: Performed By: #### E SR, CBC, CMP #### [address] Urea nitrogen [Mass/volume] in Serum or PlasmaOrdered By: Barby Chen on 12-02-2023 Urea nitrogen [Mass/Vol] 9 mg/dL 7-25 [facility] Comment on above: Performed By: #### E SR, CBC, CMP #### [facility] [address] [place] [address] A1C with Estimated Average G rafin 11-03-2023 Glucose [Mass/Vol] 123 mg/dL Normal [facility] Comment on above: Result Comment: PERF ORMED BY: [place] [address] PATHOLOGIST [employer] INTERN HARVINDER GAGE M.D. Performed By: #### V ITD+D2+D3, THYROID PROF II #### [facility] , #### CMP, CBC #### [facility] [address] [place] [address] Alanine aminotransferase [En zymatic activity/volume] in Serum or PlasmaOrdered By: Anibal Chaudhary on 11-03-2023 ALT [Catalytic activity/Vol] 12 U/L 7-52 [facility] Comment on above: Performed By: #### V ITD+D2+D3, THYROID PROF II #### [facility] , #### CMP, CBC #### [facility] [address] [place] [address] [place] Albumin [Mass/volume] in Ser um or Plasma by Bromocresol green (BCG) dye binding methoOrdered By: Anibal Chaudhary on 11-03-2023 Albumin BCG dye [Mass/Vol] 4.2 g/dL 3.5-5.7 [facility] Alkaline phosphatase [Enzyma tic activity/volume] in Serum or PlasmaOrdered By: Anibal Chaudhary on 11-03-2023 ALP [Catalytic activity/Vol] 79 U/L 34-104 [facility] Comment on above: Performed By: #### V ITD+D2+D3, THYROID PROF II #### [facility] , #### CMP, CBC #### [facility] [address] [place] [address] [place] Aspartate aminotransferase [ Enzymatic activity/volume] in Serum or PlasmaOrdered By: Anibal Chaudhary on 11-03-2023 AST [Catalytic activity/Vol] 16 U/L 13-39 [facility] Comment on above: Performed By: #### V ITD+D2+D3, THYROID PROF II #### [facility] , #### CMP, CBC #### [facility] [address] [place] [address] [place] Bilirubin.total [Mass/volume ] in Serum or PlasmaOrdered By: Anibal Chaudhary on 11-03-2023 Bilirubin [Mass/Vol] 0.5 mg/dL 0.3-1.0 [facility] Comment on above: Performed By: #### V ITD+D2+D3, THYROID PROF II #### [facility] , #### CMP, CBC #### [facility] [address] [place] [address] [place] Calcium [Mass/volume] in Ser um or PlasmaOrdered By: Anibal Chaudhary on 11-03-2023 Calcium [Mass/Vol] 9.1 mg/dL 8.6-10.3 [facility] Comment on above: Performed By: #### V ITD+D2+D3, THYROID PROF II #### [facility] , #### CMP, CBC #### [facility] [address] [place] [address] Carbon dioxide, total [Moles /volume] in Serum or PlasmaOrdered By: Anibal Chaudhary on 11-03-2023 CO2 [Moles/Vol] 26.2 mmol/L 21.0-31.0 [facility] Comment on above: Performed By: #### V ITD+D2+D3, THYROID PROF II #### [facility] , #### CMP, CBC #### [facility] [address] [place] [address] [place] Chloride [Moles/volume] in S davi or PlasmaOrdered By: Anibal Chaudhary on 11-03-2023 Chloride [Moles/Vol] 101 mmol/L 98-107 [facility] Comment on above: Performed By: #### V ITD+D2+D3, THYROID PROF II #### [facility] , #### CMP, CBC #### [facility] [address] [place] [address] [place] Cholesterol [Mass/volume] in Serum or PlasmaOrdered By: Anibal Chaudhary on 11-03-2023 Cholesterol [Mass/Vol] 162 mg/dL 140-200 [facility] Comment on above: Chol less than 200 m g/dl low riskChol 201-239 mg/dl borderline riskChol 240 mg/dl and greater high risk Result Comment: Chol less than 200 mg/dl low risk Chol 201-239 mg/dl borderline risk Chol 240 mg/dl and greater high risk Performed By: #### V ITD+D2+D3, THYROID PROF II #### [facility] , #### CMP, CBC #### [facility] [address] [place] [address] [place] Cholesterol in LDL Calc [Mas s/Vol]Ordered By: Anibal Chaudhary on 11-03-2023 Cholesterol in LDL [Mass/Vol] 86 mg/dL 0-100 [facility] Comment on above: LDL ATP III CLASSIFI CATIONLDL less than 100 mg/dL OptimalLDL 100-129 mg/dL Near or above optimalLDL 130-159 mg/dL Borderline highLDL 160-189 mg/dL HighLDL greater than 189 mg/dL Very high Cholesterol in VLDL Calc [Ma ss/Vol]Ordered By: Anibal Chaudhary on 11-03-2023 Cholesterol in VLDL [Mass/Vol] 20 mg/dL [facility] Comprehensive Metabolic Pane kirit 11-03-2023 Albumin [Mass/Vol] 4.2 g/dL Normal 3.5-5.7 [facility] Comment on above: Performed By: #### V ITD+D2+D3, THYROID PROF II #### [facility] , #### CMP, CBC #### [facility] [address] [place] [address] [place] GFR/1.73 sq M.predicted MDRD (S/P/Bld) [Vol rate/Area] mL/min/{1.73_m2} Normal [facility] Comment on above: Performed By: #### V ITD+D2+D3, THYROID PROF II #### [facility] , #### CMP, CBC #### [facility] [address] [place] [address] [place] Creatinine [Mass/volume] in Serum or PlasmaOrdered By: Anibal Chaudhary on 11-03-2023 Creatinine [Mass/Vol] 0.94 mg/dL 0.60-1.20 [facility] Comment on above: Performed By: #### V ITD+D2+D3, THYROID PROF II #### [facility] , #### CMP, CBC #### [facility] [address] [place] [id number] [place] Glucose [Mass/volume] in Ser um or PlasmaOrdered By: Anibal Chaudhary on 11-03-2023 Glucose [Mass/Vol] 130 mg/dL High 70-100 [facility] Comment on above: ADA recommended refe rence rangeRandom Glucose Reference Range is dependent on time and content of last meal. Glucose of more than 200 mg/dL in a nonstressed, ambulatory subject supports the diagnosis of Diabetes Mellitus. Result Comment: [place] Glucose Reference Range is dependent on time and content of last meal. Glucose of more than 200 mg/dL in a nonstressed, ambulatory subject supports the diagnosis of Diabetes Mellitus. ADA recommended reference range Performed By: #### V ITD+D2+D3, THYROID PROF II #### [facility] , #### CMP, CBC #### [facility] [address] [place] [address] [facility] Glucose mean value [Mass/vol ume] in Blood Estimated from glycated hemoglobinOrdered By: Anibal Chaudhary on 11-03-2023 Average glucose Estimated from glycated hemoglobin (Bld) [Mass/Vol] 123 mg/dL [facility] Hemoglobin A1c percentageOrd ered By: Anibal Chaudhary on 11-03-2023 HbA1c (Bld) [Mass fraction] 5.9 % High 4.3-5.6 [facility] Comment on above: Increased risk for d iabetes: 5.7 - 6.4diabetes: >6.4glycemic control for adults with diabetes: <7.0 Result Comment: Incr eased risk for diabetes: 5.7 - 6.4 diabetes: >6.4 glycemic control for adults with diabetes: <7.0 Performed By: #### V ITD+D2+D3, THYROID PROF II #### [facility] , #### CMP, CBC #### [facility] [address] [place] [address] [facility] Lipid Panelon 11-03-2023 LDL Cholesterol,Calculated 86 mg/dL Normal 0-100 [facility] Comment on above: Result Comment: LDL ATP III CLASSIFICATION LDL less than 100 mg/dL Optimal LDL 100-129 mg/dL Near or above optimal LDL 130-159 mg/dL Borderline high LDL 160-189 mg/dL High LDL greater than 189 mg/dL Very high Performed By: #### V ITD+D2+D3, THYROID PROF II #### [facility] , #### CMP, CBC #### [address] Triglyceride w/Reflex 101 mg/dL Normal 0-149 [facility] Comment on above: Result Comment: TRIG ATP III CLASSIFICATION TRIG less than 150 mg/dL Normal TRIG 150-199 mg/dL Borderline high TRIG 200-500 mg/dL High TRIG greater than 500 mg/dL Very high Standard traceable to the Center for Disease Conrtrol and Prevention (CDC) test method. Performed By: #### V ITD+D2+D3, THYROID PROF II #### [facility] , #### CMP, CBC #### [address] VLDL CHOLESTEROL 20 mg/dL Normal [facility] Comment on above: Performed By: #### V ITD+D2+D3, THYROID PROF II #### [facility] , #### CMP, CBC #### [facility] [address] [place] [address] No Panel InformationOrdered By: Anibal Chaudhary on 11-03-2023 Estimated GFR (CKD-EPI) > 60.0 mL/Min [facility] Creatinine Clearance (Chem N/A [facility] Potassium [Moles/volume] in Serum or PlasmaOrdered By: Anibal Chaudhary on 11-03-2023 Potassium [Moles/Vol] 4.5 mmol/L 3.5-5.1 [facility] Comment on above: Performed By: #### V ITD+D2+D3, THYROID PROF II #### [facility] , #### CMP, CBC #### [facility] [address] [place] [address] Protein [Mass/volume] in Ser um or PlasmaOrdered By: Anibal Chaudhary on 11-03-2023 Protein [Mass/Vol] 6.8 g/dL 6.4-8.9 [facility] Comment on above: Performed By: #### V ITD+D2+D3, THYROID PROF II #### [facility] , #### CMP, CBC #### [facility] [address] [place] [address] Serum globulin measurement b y calculation (mass/volume)Ordered By: Anibal Chaudhary on 11-03-2023 Globulin (S) [Mass/Vol] 2.6 g/dL [facility] Comment on above: Performed By: #### V ITD+D2+D3, THYROID PROF II #### [facility] , #### CMP, CBC #### [facility] [address] [place] [address] Serum or plasma albumin/glob ulin mass ratioOrdered By: Anibal Chaudhary on 11-03-2023 Albumin/Globulin [Mass ratio] 1.6 {ratio} [facility] Comment on above: Performed By: #### V ITD+D2+D3, THYROID PROF II #### [facility] , #### CMP, CBC #### [facility] [address] [place] [address] Serum or plasma anion gap de terminationOrdered By: Anibal Chaudhary on 11-03-2023 Anion gap [Moles/Vol] 10.3 mmol/L 6.0-15.0 [facility] Comment on above: Performed By: #### V ITD+D2+D3, THYROID PROF II #### [facility] , #### CMP, CBC #### [facility] [address] [place] [address] Serum or plasma high density lipoprotein (HDL) cholesterol measurementOrdered By: Anibal Chaudhary on 11-03-2023 Cholesterol in HDL [Mass/Vol] 56 mg/dL [facility] Comment on above: HDL CHOL ATP-III CLA SSIFICATION Cardiovascular RiskHDL > or equal to 60 mg/dL LOWHDL < 40 mg/dL HIGH Result Comment: HDL CHOL ATP-III CLASSIFICATION Cardiovascular Risk HDL > or equal to 60 mg/dL LOW HDL < 40 mg/dL HIGH Performed By: #### V ITD+D2+D3, THYROID PROF II #### [facility] , #### CMP, CBC #### [facility] [address] [place] [address] Serum or plasma total choles terol/high density lipoprotein (HDL) cholesterol mass ratOrdered By: Anibal Chaudhary on 11-03-2023 Cholesterol.total/Chol esterol in HDL [Mass ratio] 2.9 {ratio} <5.0 [facility] Comment on above: Performed By: #### V ITD+D2+D3, THYROID PROF II #### [facility] , #### CMP, CBC #### [address] Sodium [Moles/volume] in Ser um or PlasmaOrdered By: Anibal Chaudhary on 11-03-2023 Sodium [Moles/Vol] 133 mmol/L Low 136-145 [facility] Comment on above: Performed By: #### V ITD+D2+D3, THYROID PROF II #### [facility] , #### CMP, CBC #### [facility] [address] [place] [address] Thyroid Stim Hormone w/Rflxo n 11-03-2023 Thyroid Stim Hormone w/Rflx 1.79 u[iU]/mL Normal 0.45-5.33 [facility] Comment on above: Result Comment: PERF ORMED BY: [place] [address] PATHOLOGIST [employer] INTERN HARVINDER GAGE M.D. Performed By: #### V ITD+D2+D3, THYROID PROF II #### [facility] , #### CMP, CBC #### [address] Thyrotropin [Units/volume] i n Serum or PlasmaOrdered By: Anibal Chaudhary on 11-03-2023 TSH Qn 1.79 m[IU]/L 0.45-5.33 [facility] Thyroxine (T4) free [Mass/vo lume] in Serum or PlasmaOrdered By: Anibal Chaudhary on 11-03-2023 Free T4 [Mass/Vol] 0.92 ng/dL 0.61-1.12 [facility] Comment on above: Performed By: #### V ITD+D2+D3, THYROID PROF II #### [facility] , #### CMP, CBC #### [facility] [address] Triglyceride [Mass/volume] i n Serum or PlasmaOrdered By: Anibal Chaudhary on 11-03-2023 Triglyceride [Mass/Vol] 101 mg/dL 0-149 [facility] Comment on above: TRIG ATP III CLASSIF ICATIONTRIG less than 150 mg/dL NormalTRIG 150-199 mg/dL Borderline highTRIG 200-500 mg/dL High TRIG greater than 500 mg/dL Very highStandard traceable to the Center for Disease Conrtrol and Prevention (CDC) test method. Urea nitrogen [Mass/volume] in Serum or PlasmaOrdered By: Anibal Chaudhary on 11-03-2023 Urea nitrogen [Mass/Vol] 20 mg/dL 10-15 [facility] Comment on above: Performed By: #### V ITD+D2+D3, THYROID PROF II #### [facility] , #### CMP, CBC #### [facility] [address] Basophils Auto (Bld) [#/Vol] on 09-07-2023 Basophils (Bld) [#/Vol] 0.1 10 3/uL 0.0-0.1 [facility] Basophils/100 WBC Auto (Bld) on 09-07-2023 Basophils/100 WBC (Bld) 1.0 % 0.2-2.0 [facility] Eosinophils/100 WBC Auto (Bl d)on 09-07-2023 Eosinophils/100 WBC (Bld) 0.0 % Low 0.9-7.0 [facility] Erythrocyte distribution wid th Auto (RBC) [Ratio]on 09-07-2023 Erythrocyte distribution width (RBC) [Ratio] 12.2 % 11.0-15.0 [facility] Estimated glomerular filtrat ion rate (GFR) non- Americanon 09-07-2023 GFR/1.73 sq M.predicted among non-blacks MDRD (S/P/Bld) [Vol rate/Area] mL/min/{1.73_m2} >=60 [facility] Globulin Calc (S) [Mass/Vol] on 09-07-2023 Globulin (S) [Mass/Vol] 3.6 g/dL [facility] Hematocrit Auto (Bld) [Volum e fraction]on 09-07-2023 Hematocrit (Bld) [Volume fraction] 38.5 % 36.0-48.0 [facility] Hemoglobin [Mass/volume] in Bloodon 09-07-2023 Hemoglobin (Bld) [Mass/Vol] 13.3 g/dL 12.0-16.0 [facility] Laboratory - Chemistry and C hemistry - challengeon 09-07-2023 Albumin [Mass/Vol] 3.6 g/dL 3.4-5.0 [facility] ALP [Catalytic activity/Vol] 84 U/L 46-116 [facility] ALT [Catalytic activity/Vol] 19 U/L 14-59 [facility] AST [Catalytic activity/Vol] 16 U/L 15-37 [facility] Bilirubin [Mass/Vol] 0.4 mg/dL 0.2-1.0 [facility] Calcium [Mass/Vol] 8.9 mg/dL 8.5-10.1 [facility] Chloride [Moles/Vol] 96 mmol/L Low 98-107 [facility] CO2 [Moles/Vol] 31.7 mmol/L 21.0-32.0 [facility] Creatinine [Mass/Vol] 0.91 mg/dL 0.55-1.02 [facility] GFR/1.73 sq M.predicted MDRD (S/P/Bld) [Vol rate/Area] mL/min/{1.73_m2} >=60 [facility] Glucose [Mass/Vol] 108 mg/dL High 74-106 [facility] Potassium [Moles/Vol] 4.2 mmol/L 3.5-5.1 [facility] Protein [Mass/Vol] 7.2 g/dL 6.4-8.2 [facility] Sodium [Moles/Vol] 130 mmol/L Low 136-145 [facility] Urea nitrogen [Mass/Vol] 15.0 mg/dL 7.0-18.0 [facility] Urea nitrogen/Creatinine [Mass ratio] 16.5 mg/mg [facility] Laboratory - Hematology and Cell countson 09-07-2023 Immature granulocytes/100 WBC (Bld) 0.3 % 0.0-0.5 [facility] Leukocytes [#/volume] correc chantelle for nucleated erythrocytes in Blood by Automated counon 09-07-2023 WBC corrected for nucl RBC Auto (Bld) [#/Vol] 6.3 10 3/uL 4.0-11.0 [facility] Lymphocytes Auto (Bld) [#/Vo l]on 09-07-2023 Lymphocytes (Bld) [#/Vol] 1.4 10 3/uL 1.2-3.8 [facility] Lymphocytes/100 WBC Auto (Bl d)on 09-07-2023 Lymphocytes/100 WBC (Bld) 22.4 % 20.5-60.0 [facility] MCH Auto (RBC) [Entitic mass ]on 09-07-2023 MCH (RBC) [Entitic mass] 30.9 pg 26.7-34.0 [facility] MCHC Auto (RBC) [Mass/Vol]on 09-07-2023 MCHC (RBC) [Mass/Vol] 34.5 g/dL 29.9-35.2 [facility] MCV Auto (RBC) [Entitic vol] on 09-07-2023 MCV (RBC) [Entitic vol] 89.5 fL 81.0-99.0 [facility] Monocytes Auto (Bld) [#/Vol] on 09-07-2023 Monocytes (Bld) [#/Vol] 0.4 10 3/uL 0.3-0.8 [facility] Monocytes/100 WBC Auto (Bld) on 09-07-2023 Monocytes/100 WBC (Bld) 6.6 % 1.7-12.0 [facility] Neutrophils Auto (Bld) [#/Vo l]on 09-07-2023 Neutrophils (Bld) [#/Vol] 4.4 10 3/uL 1.4-6.5 [facility] Neutrophils/100 WBC Auto (Bl d)on 09-07-2023 Neutrophils/100 WBC (Bld) 69.7 % 43.0-75.0 [facility] No Panel Informationon 09-06 Eosinophils # (Auto) 0.0 10 3/uL 0.0-0.7 [facility] Immature Granulocyte # (Auto) 0.02 10 3/uL 0.00-0.03 [facility] Platelet mean volume Auto (B ld) [Entitic vol]on 09-07-2023 Platelet mean volume (Bld) [Entitic vol] 8.6 fL Low 9.5-13.5 [facility] Platelets Auto (Bld) [#/Vol] on 09-07-2023 Platelets (Bld) [#/Vol] 233 10 3/uL 150-450 [facility] RBC Auto (Bld) [#/Vol]on RBC (Bld) [#/Vol] 4.30 10 6/uL 4.20-5.40 [facility] Serum or plasma albumin/glob ulin mass ratioon 09-07-2023 Albumin/Globulin [Mass ratio] 1.0 {ratio} [facility] Serum or plasma anion gap de terminationon 09-07-2023 Anion gap [Moles/Vol] 6.5 mmol/L [facility] Basophils Auto (Bld) [#/Vol] on 08-19-2023 Basophils (Bld) [#/Vol] 0.1 10 3/uL 0.0-0.1 [facility] Basophils/100 WBC Auto (Bld) on 08-19-2023 Basophils/100 WBC (Bld) 1.3 % 0.2-2.0 [facility] Eosinophils/100 WBC Auto (Bl d)on 08-19-2023 Eosinophils/100 WBC (Bld) 0.0 % Low 0.9-7.0 [facility] Erythrocyte distribution wid th Auto (RBC) [Ratio]on 08-19-2023 Erythrocyte distribution width (RBC) [Ratio] 12.1 % 11.0-15.0 [facility] Estimated glomerular filtrat ion rate (GFR) non- Americanon 08-19-2023 GFR/1.73 sq M.predicted among non-blacks MDRD (S/P/Bld) [Vol rate/Area] mL/min/{1.73_m2} >=60 [facility] Hematocrit Auto (Bld) [Volum e fraction]on 08-19-2023 Hematocrit (Bld) [Volume fraction] 40.6 % 36.0-48.0 [facility] Hemoglobin [Mass/volume] in Bloodon 08-19-2023 Hemoglobin (Bld) [Mass/Vol] 13.8 g/dL 12.0-16.0 [facility] Laboratory - Chemistry and C hemistry - challengeon 08-19-2023 Calcium [Mass/Vol] 8.8 mg/dL 8.5-10.1 [facility] Chloride [Moles/Vol] 96 mmol/L Low 98-107 [facility] CO2 [Moles/Vol] 30.6 mmol/L 21.0-32.0 [facility] Creatinine [Mass/Vol] 0.89 mg/dL 0.55-1.02 [facility] Free T4 [Mass/Vol] 0.87 ng/dL 0.76-1.46 [facility] GFR/1.73 sq M.predicted MDRD (S/P/Bld) [Vol rate/Area] mL/min/{1.73_m2} >=60 [facility] Glucose [Mass/Vol] 116 mg/dL High 74-106 [facility] Natriuretic peptide B (Bld) [Mass/Vol] 490.0 pg/mL <=900.0 [facility] Potassium [Moles/Vol] 4.4 mmol/L 3.5-5.1 [facility] Sodium [Moles/Vol] 133 mmol/L Low 136-145 [facility] TSH Qn 4.910 m[IU]/L High 0.358-3.[address] [facility] Urea nitrogen [Mass/Vol] 20.0 mg/dL High 7.0-18.0 [facility] Urea nitrogen/Creatinine [Mass ratio] 22.5 mg/mg [facility] Bilirubin Ql (U) Negative NEGATIVE [facility] Glucose (U) [Mass/Vol] Negative NEGATIVE [facility] Ketones Ql (U) Negative NEGATIVE [facility] pH (U) 7.0 [pH] 5.0-9.0 [facility] Specific gravity (U) [Rel density] 1.010 1.005-1.[address] [facility] Urobilinogen Qn (U) 0.2 {Lenny'U}/dL 0.2-1.0 [facility] Laboratory - Hematology and Cell countson 08-19-2023 Immature granulocytes/100 WBC (Bld) 0.5 % 0.0-0.5 [facility] - Specimen inform ationon 08-19-2023 Appearance (U) CLEAR CLEAR [facility] Color (U) LT. YELLOW YELLOW [facility] Laboratory - Urinalysison Leukocyte esterase Test strip Ql (U) Negative NEGATIVE [facility] Nitrite Ql (U) Negative NEGATIVE [facility] Protein Ql (U) Negative NEG/TRACE [facility] Leukocytes [#/volume] correc chantelle for nucleated erythrocytes in Blood by Automated counon 08-19-2023 WBC corrected for nucl RBC Auto (Bld) [#/Vol] 7.5 10 3/uL 4.0-11.0 [facility] Lymphocytes Auto (Bld) [#/Vo l]on 08-19-2023 Lymphocytes (Bld) [#/Vol] 1.6 10 3/uL 1.2-3.8 [facility] Lymphocytes/100 WBC Auto (Bl d)on 08-19-2023 Lymphocytes/100 WBC (Bld) 21.2 % 20.5-60.0 [facility] MCH Auto (RBC) [Entitic mass ]on 08-19-2023 MCH (RBC) [Entitic mass] 31.0 pg 26.7-34.0 [facility] MCHC Auto (RBC) [Mass/Vol]on 08-19-2023 MCHC (RBC) [Mass/Vol] 34.0 g/dL 29.9-35.2 [facility] MCV Auto (RBC) [Entitic vol] on 08-19-2023 MCV (RBC) [Entitic vol] 91.2 fL 81.0-99.0 [facility] Monocytes Auto (Bld) [#/Vol] on 08-19-2023 Monocytes (Bld) [#/Vol] 0.5 10 3/uL 0.3-0.8 [facility] Monocytes/100 WBC Auto (Bld) on 08-19-2023 Monocytes/100 WBC (Bld) 6.4 % 1.7-12.0 [facility] Neutrophils Auto (Bld) [#/Vo l]on 08-19-2023 Neutrophils (Bld) [#/Vol] 5.3 10 3/uL 1.4-6.5 [facility] Neutrophils/100 WBC Auto (Bl d)on 08-19-2023 Neutrophils/100 WBC (Bld) 70.6 % 43.0-75.0 [facility] No Panel Informationon 08-18 Eosinophils # (Auto) 0.0 10 3/uL 0.0-0.7 [facility] Immature Granulocyte # (Auto) 0.04 10 3/uL High 0.00-0.03 [facility] Urine Occult Blood TRACE-L NEGATIVE [facility] Platelet mean volume Auto (B ld) [Entitic vol]on 08-19-2023 Platelet mean volume (Bld) [Entitic vol] 9.0 fL Low 9.5-13.5 [facility] Platelets Auto (Bld) [#/Vol] on 08-19-2023 Platelets (Bld) [#/Vol] 259 10 3/uL 150-450 [facility] RBC Auto (Bld) [#/Vol]on RBC (Bld) [#/Vol] 4.45 10 6/uL 4.20-5.40 [facility] Serum or plasma anion gap de terminationon 08-19-2023 Anion gap [Moles/Vol] 10.8 mmol/L [facility] Alanine aminotransferase [En zymatic activity/volume] in Serum or PlasmaOrdered By: Pam Wagoner on 07-08-2023 ALT [Catalytic activity/Vol] 13 U/L Normal 7-52 [facility] Comment on above: Performed By: #### V ITD+D2+D3, THYROID PROF II #### [facility] , #### CMP, CBC #### [facility] [address] [place] [address] Albumin [Mass/volume] in Ser um or Plasma by Bromocresol green (BCG) dye binding methoOrdered By: Pam Wagoner on 07-08-2023 Albumin BCG dye [Mass/Vol] 4.7 g/dL 3.5-5.7 [facility] Alkaline phosphatase [Enzyma tic activity/volume] in Serum or PlasmaOrdered By: Pam Wagoner on 07-08-2023 ALP [Catalytic activity/Vol] 72 U/L Normal 34-104 [facility] Comment on above: Result Comment: PERF ORMED BY: [place] [address] PATHOLOGIST MARKETING OPERATIONS INTERN HARVINDER GAGE M.D. Performed By: #### V ITD+D2+D3, THYROID PROF II #### [facility] , #### CMP, CBC #### [address] Aspartate aminotransferase [ Enzymatic activity/volume] in Serum or PlasmaOrdered By: Pam Wagoner on 07-08-2023 AST [Catalytic activity/Vol] 18 U/L Normal 13-39 [facility] Comment on above: Performed By: #### V ITD+D2+D3, THYROID PROF II #### [facility] , #### CMP, CBC #### [facility] [address] [place] [address] Automated basophil %Ordered By: Pam Wagoner on 07-08-2023 Basophils/100 WBC (Bld) 1.2 % Normal . [facility] Comment on above: Performed By: #### V ITD+D2+D3, THYROID PROF II #### [facility] , #### CMP, CBC #### [address] Automated basophil countOrde red By: Pam Wagoner on 07-08-2023 Basophils (Bld) [#/Vol] 0.1 10*3/uL Normal 0.0-0.2 [facility] Comment on above: Result Comment: PERF ORMED BY: [place] [address] PATHOLOGIST MARKET[employer]PER[employer] INTERN HARVINDER GAGE M.D. Performed By: #### V ITD+D2+D3, THYROID PROF II #### [facility] , #### CMP, CBC #### [address] Automated blood monocyte cou ntOrdered By: Pam Wagoner on 07-08-2023 Monocytes (Bld) [#/Vol] 0.5 10*3/uL Normal 0.0-0.8 [facility] Comment on above: Performed By: #### V ITD+D2+D3, THYROID PROF II #### [facility] , #### CMP, CBC #### [address] Automated eosinophil %Ordere d By: Pam Wagoner on 07-08-2023 Eosinophils/100 WBC (Bld) 0.0 % Normal . [facility] Comment on above: Performed By: #### V ITD+D2+D3, THYROID PROF II #### [facility] , #### CMP, CBC #### [address] Automated eosinophil countOr dered By: Pam Wagoner on 07-08-2023 Eosinophils (Bld) [#/Vol] 0.0 10*3/uL Normal 0.0-0.45 [facility] Comment on above: Performed By: #### V ITD+D2+D3, THYROID PROF II #### [facility] , #### CMP, CBC #### [address] Automated monocyte %Ordered By: Pam Wagoner on 07-08-2023 Monocytes/100 WBC (Bld) 7.8 % Normal . [facility] Comment on above: Performed By: #### V ITD+D2+D3, THYROID PROF II #### [facility] , #### CMP, CBC #### [address] Automated neutrophil %Ordere d By: Pam Wagoner on 07-08-2023 Neutrophils/100 WBC (Bld) 65.2 % Normal . [facility] Comment on above: Performed By: #### V ITD+D2+D3, THYROID PROF II #### [facility] , #### CMP, CBC #### [address] Bilirubin.total [Mass/volume ] in Serum or PlasmaOrdered By: Pam Wagoner on 07-08-2023 Bilirubin [Mass/Vol] 0.3 mg/dL Normal 0.3-1.0 [facility] Comment on above: Performed By: #### V ITD+D2+D3, THYROID PROF II #### [facility] , #### CMP, CBC #### [address] Calcium [Mass/volume] in Ser um or PlasmaOrdered By: Pam Wagoner on 07-08-2023 Calcium [Mass/Vol] 9.9 mg/dL Normal 8.6-10.3 [facility] Comment on above: Performed By: #### V ITD+D2+D3, THYROID PROF II #### [facility] , #### CMP, CBC #### [facility] [address] [place] [address] Carbon dioxide, total [Moles /volume] in Serum or PlasmaOrdered By: Pam Wagoner on 07-08-2023 CO2 [Moles/Vol] 31.5 mmol/L High 21.0-31.0 [facility] Comment on above: Performed By: #### V ITD+D2+D3, THYROID PROF II #### [facility] , #### CMP, CBC #### [facility] [address] [place] [address] Chloride [Moles/volume] in S davi or PlasmaOrdered By: Pam Wagoner on 07-08-2023 Chloride [Moles/Vol] 100 mmol/L Normal 98-107 [facility] Comment on above: Performed By: #### V ITD+D2+D3, THYROID PROF II #### [facility] , #### CMP, CBC #### [address] Complete Blood Count Auto Di ffon 07-08-2023 Mean Corpuscular HGB Conc 34.0 g/dL Normal 32.0-35.0 [facility] Comment on above: Performed By: #### V ITD+D2+D3, THYROID PROF II #### [facility] , #### CMP, CBC #### [address] NRBC% 0.1 /100{WBC} Normal 0-0.5 [facility] Comment on above: Performed By: #### V ITD+D2+D3, THYROID PROF II #### [facility] , #### CMP, CBC #### [facility] [address] [place] [address] Comprehensive Metabolic Pane kirit 07-08-2023 Albumin [Mass/Vol] 4.7 g/dL Normal 3.5-5.7 [facility] Comment on above: Performed By: #### V ITD+D2+D3, THYROID PROF II #### [facility] , #### CMP, CBC #### [facility] [address] [place] [address] [place] GFR/1.73 sq M.predicted MDRD (S/P/Bld) [Vol rate/Area] mL/min/{1.73_m2} Normal [facility] Comment on above: Performed By: #### V ITD+D2+D3, THYROID PROF II #### [facility] , #### CMP, CBC #### [facility] [address] [place] [address] Creatinine [Mass/volume] in Serum or PlasmaOrdered By: Pam Wagoner on 07-08-2023 Creatinine [Mass/Vol] 0.96 mg/dL Normal 0.60-1.20 [facility] Comment on above: Performed By: #### V ITD+D2+D3, THYROID PROF II #### [facility] , #### CMP, CBC #### [facility] [address] [place] [address] Erythrocyte distribution wid th [Ratio] by Automated countOrdered By: Pam Wagoner on 07-08-2023 Erythrocyte distribution width (RBC) [Ratio] 12.9 % Normal 11.9-15.3 [facility] Comment on above: Performed By: #### V ITD+D2+D3, THYROID PROF II #### [facility] , #### CMP, CBC #### [address] Erythrocytes [#/volume] in B lood by Automated countOrdered By: Pam Wgaoner on 07-08-2023 RBC (Bld) [#/Vol] 4.72 10*6/uL Normal 3.60-5.00 [facility] Comment on above: Performed By: #### V ITD+D2+D3, THYROID PROF II #### [facility] , #### CMP, CBC #### [address] Free thyroxine indexOrdered By: Pam Wagoner on 07-08-2023 Free T4 index Calc [Mass/Vol] 1.8 1.2-4.9 [facility] Glucose [Mass/volume] in Ser um or PlasmaOrdered By: Pam Wagoner on 07-08-2023 Glucose [Mass/Vol] 109 mg/dL High 70-100 [facility] Comment on above: ADA recommended refe rence rangeRandom Glucose Reference Range is dependent on time and content of last meal. Glucose of more than 200 mg/dL in a nonstressed, ambulatory subject supports the diagnosis of Diabetes Mellitus. Result Comment: [facility] Glucose Reference Range is dependent on time and content of last meal. Glucose of more than 200 mg/dL in a nonstressed, ambulatory subject supports the diagnosis of Diabetes Mellitus. ADA recommended reference range Performed By: #### V ITD+D2+D3, THYROID PROF II #### [facility] , #### CMP, CBC #### [address] Hematocrit [Volume Fraction] of Blood by Automated countOrdered By: Pam Wagoner on 07-08-2023 Hematocrit (Bld) [Volume fraction] 43.4 % Normal 34.0-46.4 [facility] Comment on above: Performed By: #### V ITD+D2+D3, THYROID PROF II #### [facility] , #### CMP, CBC #### [address] Hemoglobin [Mass/volume] in BloodOrdered By: Pam Wagoner on 07-08-2023 Hemoglobin (Bld) [Mass/Vol] 14.7 g/dL Normal 11.8-15.4 [facility] Comment on above: Performed By: #### V ITD+D2+D3, THYROID PROF II #### [facility] , #### CMP, CBC #### [facility] [address] [place] [address] Leukocytes [#/volume] correc chantelle for nucleated erythrocytes in Blood by Automated counOrdered By: Pam Wagoner on 07-08-2023 WBC corrected for nucl RBC Auto (Bld) [#/Vol] 6.7 10*3/uL 3.8-11.6 [facility] Leukocytes [#/volume] in Blo od by Automated countOrdered By: Pam Wagoner on 07-08-2023 WBC (Bld) [#/Vol] 6.7 10*3/uL Normal 3.8-11.6 [facility] Comment on above: Performed By: #### V ITD+D2+D3, THYROID PROF II #### [facility] , #### CMP, CBC #### [address] Lymphocytes [#/volume] in Bl ood by Automated countOrdered By: Pam Wagoner on 07-08-2023 Lymphocytes (Bld) [#/Vol] 1.7 10*3/uL Normal 1.00-4.8 [facility] Comment on above: Performed By: #### V ITD+D2+D3, THYROID PROF II #### [facility] , #### CMP, CBC #### [facility] [address] [place] [address] Lymphocytes/100 leukocytes i n Blood by Automated countOrdered By: Pam Wagoner on 07-08-2023 Lymphocytes/100 WBC (Bld) 25.8 % Normal . [facility] Comment on above: Performed By: #### V ITD+D2+D3, THYROID PROF II #### [facility] , #### CMP, CBC #### [address] MCH [Entitic mass] by Automa chantelle countOrdered By: Pam Wagoner on 07-08-2023 MCH (RBC) [Entitic mass] 31.2 pg Normal 24.7-34.3 [facility] Comment on above: Performed By: #### V ITD+D2+D3, THYROID PROF II #### [facility] , #### CMP, CBC #### [facility] [address] [place] [address] MCHC Auto (RBC) [Mass/Vol]Or dered By: Pam Wagoner on 07-08-2023 MCHC (RBC) [Mass/Vol] 34.0 g/dL 32.0-35.0 [facility] MCV [Entitic volume] by Auto mated countOrdered By: Pam Wagoner on 07-08-2023 MCV (RBC) [Entitic vol] 92.0 fL Normal 80-100 [facility] Comment on above: Performed By: #### V ITD+D2+D3, THYROID PROF II #### [facility] , #### CMP, CBC #### [facility] [address] [place] [address] Neutrophils [#/volume] in Bl ood by Automated countOrdered By: Pam Wagoner on 07-08-2023 Neutrophils (Bld) [#/Vol] 4.3 10*3/uL Normal 1.8-7.7 [facility] Comment on above: Performed By: #### V ITD+D2+D3, THYROID PROF II #### [facility] , #### CMP, CBC #### [facility] [address] [place] [address] No Panel InformationOrdered By: Pam Wagoner on 07-08-2023 Estimated GFR (CKD-EPI) > 60.0 mL/Min [facility] Free Thyroxine (T4) Direct 7.5 ug/dL 4.5-12.0 [facility] Creatinine Clearance (Chem N/A [facility] Nucleated erythrocytes [Pres ence] in Blood by Automated countOrdered By: Pam Wagoner on 07-08-2023 Nucleated RBC Auto Ql (Bld) 0.1 /100{WBC} 0-0.5 [facility] Platelet mean volume [Entiti c volume] in Blood by Automated countOrdered By: Pam Wagoner on 07-08-2023 Platelet mean volume (Bld) [Entitic vol] 7.8 fL Normal 6.3-10.7 [facility] Comment on above: Performed By: #### V ITD+D2+D3, THYROID PROF II #### [facility] , #### CMP, CBC #### [facility] [address] [place] [address] Platelets [#/volume] in Bloo d by Automated countOrdered By: Pam Wagoner on 07-08-2023 Platelets (Bld) [#/Vol] 278 10*3/uL Normal 150-450 [facility] Comment on above: Performed By: #### V ITD+D2+D3, THYROID PROF II #### [facility] , #### CMP, CBC #### [facility] [address] [place] [address] [place] Potassium [Moles/volume] in Serum or PlasmaOrdered By: Pam Wagoner on 07-08-2023 Potassium [Moles/Vol] 4.7 mmol/L Normal 3.5-5.1 [facility] Comment on above: Performed By: #### V ITD+D2+D3, THYROID PROF II #### [facility] , #### CMP, CBC #### [address] Protein [Mass/volume] in Ser um or PlasmaOrdered By: Pam Wagoner on 07-08-2023 Protein [Mass/Vol] 7.5 g/dL Normal 6.4-8.9 [facility] Comment on above: Performed By: #### V ITD+D2+D3, THYROID PROF II #### [facility] , #### CMP, CBC #### [address] Serum globulin measurement b y calculation (mass/volume)Ordered By: Pam Wagoner on 07-08-2023 Globulin (S) [Mass/Vol] 2.8 g/dL Normal [facility] Comment on above: Performed By: #### V ITD+D2+D3, THYROID PROF II #### [facility] , #### CMP, CBC #### [facility] [address] [place] [address] Serum or plasma 25-hydroxyca lciferol measurement (mass/volume)Ordered By: Pam Wagoner on 07-08-2023 25-hydroxyvitamin D2 [Mass/Vol] <1.0 ng/mL . [facility] Comment on above: This test was devcarmelinao ped and its performance characteristicsdetermined by [facility]. It has not been cleared or approvedby the Food and Drug Administration. Serum or plasma 25-hydroxyvi tamin D measurement (mass/volume)Ordered By: Pam Wagoner on 07-08-2023 25-hydroxyvitamin D [Mass/Vol] 6.8 ng/mL . [facility] Comment on above: Reference Range:All Ages: Target levels 30 - 100 Serum or plasma albumin/glob ulin mass ratioOrdered By: Pam Wagoner on 07-08-2023 Albumin/Globulin [Mass ratio] 1.7 {ratio} Normal [facility] Comment on above: Performed By: #### V ITD+D2+D3, THYROID PROF II #### [facility] , #### CMP, CBC #### [address] Serum or plasma anion gap de terminationOrdered By: Pam Wagoner on 07-08-2023 Anion gap [Moles/Vol] 9.2 mmol/L Normal 6.0-15.0 [facility] Comment on above: Performed By: #### V ITD+D2+D3, THYROID PROF II #### [facility] , #### CMP, CBC #### [facility] [address] [place] [address] Serum or plasma calcidiol me asurement (mass/volume)Ordered By: Pam Wagoner on 07-08-2023 25-hydroxyvitamin D3 [Mass/Vol] 6.8 ng/mL . [facility] Comment on above: This test was develo ped and its performance characteristicsdetermined by [facility]. It has not been cleared or approvedby the Food and Drug Administration.Performed at: [email or web address] [id number] [place], [place] [id number] Director: Santos Chahal MD, Phone: [phone] Serum or plasma thyroid stim ulating hormone (TSH) measurement by high sensitivity metOrdered By: Pam Wagoner on 07-08-2023 TSH Qn 5.980 m[IU]/L High 0.450-4.[address] [facility] Comment on above: Result Comment: PERF ORMED BY: [place] [address] PATHOLOGIST MARKETING OPERATIONS INTERN HARVINDER GAGE M.D. Performed By: #### V ITD+D2+D3, THYROID PROF II #### [facility] , #### CMP, CBC #### [facility] [address] [place] [address] Sodium [Moles/volume] in Ser um or PlasmaOrdered By: Pam Wagoner on 07-08-2023 Sodium [Moles/Vol] 136 mmol/L Normal 136-145 [facility] Comment on above: Performed By: #### V ITD+D2+D3, THYROID PROF II #### [facility] , #### CMP, CBC #### [facility] [address] [place] [address] T3 uptakeOrdered By: Pam Wagoner on 07-08-2023 T3RU 24 % 24-39 [facility] Thyroid Profile IIon 024 Free Thyroxine Index 1.8 Normal 1.2-4.9 [facility] Comment on above: Performed By: #### V ITD+D2+D3, THYROID PROF II #### [facility] , #### CMP, CBC #### [address] Lab Pamela Triiodothyronine,(T3) 124 ng/dL Normal 71-180 [facility] Comment on above: Result Comment: Perf ormed at: - [facility] [address] [id number] Emergency Communications Officer: Spencer Martinez PhD, Phone: [phone] Performed By: #### V ITD+D2+D3, THYROID PROF II #### [facility] , #### CMP, CBC #### [facility] [address] [place] [address] T4 [Mass/Vol] 7.5 ug/dL Normal 4.5-12.0 [facility] Comment on above: Performed By: #### V ITD+D2+D3, THYROID PROF II #### [facility] , #### CMP, CBC #### [facility] [address] [place] [address] Triiodothryronine (T3) Uptake 24 % Normal 24-39 [facility] Comment on above: Performed By: #### V ITD+D2+D3, THYROID PROF II #### [facility] , #### CMP, CBC #### [facility] [address] [place] [address] Triiodothyronine (T3) [Mass/ volume] in Serum or PlasmaOrdered By: Pam Wagoner on 07-08-2023 T3 [Mass/Vol] 124 ng/dL 71-180 [facility] Comment on above: Performed at: [address] [id number] Director: Spencer Martinez PhD, Phone: [phone] Urea nitrogen [Mass/volume] in Serum or PlasmaOrdered By: Pam Wagoner on 07-08-2023 Urea nitrogen [Mass/Vol] 26 mg/dL High 7-25 [facility] Comment on above: Performed By: #### V ITD+D2+D3, THYROID PROF II #### [facility] , #### CMP, CBC #### [address] Vitamin D 25 Hydroxy,Tot+D2+ D3on 07-08-2023 Lab [facility] Vitamin D 25 OH 6.8 ng/mL Low . [facility] Comment on above: Result Comment: Refe rence Range: All Ages: Target levels 30 - 100 Performed By: #### V ITD+D2+D3, THYROID PROF II #### [facility] , #### CMP, CBC #### [address] Vitamin D-2 <1.0 Normal . [facility] Comment on above: Result Comment: This test was developed and its performance characteristics determined by [facility]. It has not been cleared or approved by the Food and Drug Administration. Performed By: #### V ITD+D2+D3, THYROID PROF II #### [facility] , #### CMP, CBC #### [facility] [address] [place] [address] Vitamin D-3 6.8 ng/mL Normal . [facility] Comment on above: Result Comment: This test was developed and its performance characteristics determined by [facility]. It has not been cleared or approved by the Food and Drug Administration. Performed at: [employer] [employer] [place] [address] [place] [id number] Emergency Communications Officer: Santos Chahal MD, Phone: [phone] PERFORMED BY: [facility] [address] [place] [address] PATHOLOGIST MARKETING OPERATIONS INTERN HARVINDER GAGE M.D. Performed By: #### V ITD+D2+D3, THYROID PROF II #### [facility] , #### CMP, CBC #### [address] Progress Note - Nutritionon 06-04-2023 Progress Note - Nutrition Pt is here today for an initial DM MNT appt. Pt has had diabetes for two years. 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 Referral of Care: [...] f/u fo (more content not included)... Normal [facility] BD Bone Density DEXAon 05-29 BD [...] MD, V. Transcribed by: EUSEB[place] Technologist: SENIA [facility] Consent for Treatmenton Consent for Treatment [id number]#1.00TIFF [facility] Consent for Treatment [id number]#1.00TIFF [facility] Physician Orderon 05-20-2023 Physician Order [id number]#1.00TIFF Normal [facility] Physician Referralon 024 Physician Referral [id number]#1.00TIFF Normal [facility] community outreach lela negron 02-28-2023 community outreach carotid [facility] [place] [address] Ultrasound Report Signed Patient: Ruma Carlton MR#: [id number] : 1960 Acct:[id number] Age/Sex: 62 / F ADM Date: 02/25/23 Loc: Room: Type: [facility] Attending Dr: Colin Community Ordering Provider: COLIN SOTO Date of Service: 02/25/23 [place]/[facility] outreach carotid: SCREENING Copies to: [facility] CAROTID DUPLEX INDICATION: Community outreach screening [...] the common carotid artery is 1.4 . US/[facility] community outreach carotid IMPRESSION: NO HEMODYNAMICALLY SIGNIFICANT STENOSIS OF EITHER EXTRACRANIAL INTERNAL CAROTID ARTERY. BOTH VERTEBRAL ARTERIES ARE PATENT WITH ANTEGRADE FLOW. Impression dictated by: Carmelita Holman MD02/28/2023 10:51 AM Dictation Location: [place] [address] Tech: Ruby Hutchison Transcribed By: CHRISTIAN 02/28/23 1051 Dictated By: Carmelita Holman MD 02/28/23 1050 Signed By: 02/28/23 1051 Normal [facility] Basic Metabolic Panelon 100 Creatinine Clr Calc Pharmacy 103.69 Normal [facility] Comment on above: Result Comment: PERF ORMED BY: [place] [address] PATHOLOGIST MARKETING OPERATIONS INTERN HARVINDER GAGE M.D. Performed By: #### B MP #### [address] GFR/1.73 sq M.predicted MDRD (S/P/Bld) [Vol rate/Area] mL/min/{1.73_m2} Normal [facility] Comment on above: Performed By: #### B MP #### [address] Calcium [Mass/volume] in Ser um or PlasmaOrdered By: Froilan Brwon on 12-24-2022 Calcium [Mass/Vol] 8.8 mg/dL Normal 8.6-10.3 [facility] Comment on above: Performed By: #### B MP #### [place] [address] [place] Carbon dioxide, total [Moles /volume] in Serum or PlasmaOrdered By: Froilan Brown on 12-24-2022 CO2 [Moles/Vol] 25.8 mmol/L Normal 21.0-31.0 [facility] Comment on above: Performed By: #### B MP #### [place] [address] [place] Chloride [Moles/volume] in S davi or PlasmaOrdered By: Froilan Brown on 12-24-2022 Chloride [Moles/Vol] 104 mmol/L Normal 98-107 [facility] Comment on above: Performed By: #### B MP #### [facility] [address] Creatinine [Mass/volume] in Serum or PlasmaOrdered By: Froilan Brown on 12-24-2022 Creatinine [Mass/Vol] 0.61 mg/dL Normal 0.60-1.20 [facility] Comment on above: Performed By: #### B MP #### [facility] [address] ECG 12 lead ECGon 12-24-2022 ECG 12 lead ECG [facility] [place] [address] [place] [address] Electrocardiograph Report Signed Patient: Ruma Carlton MR#: [id number] : 1960 Acct:[id number] Age/Sex: 62 / F ADM Date: 12/24/22 Loc: Room: [address] [place] [address] Type: DIS INOo Attending Dr: Petr Kowalski [...] leads Confirmed by REGINA MOLINA MD, FACC ([id number]) on 12/25/2022 10:57:22 AM Referred By: Electronically Signed By:REGINA MOLINA MD FACC Transcribed By: MUS Signed By Sukhi Molina MD 12/25/22 1057 Normal [facility] ECG 12 lead ECG [facility] Main [place] [address] [place] [address] Electrocardiograph Report Signed Patient: Ruma Carlton MR#: [id number] : 1960 Acct:[id number] Age/Sex: 62 / F ADM Date: 12/24/22 Loc: Room: [address] [place] [address] Type: DIS INOo Attending Dr: Petr Kowalski [...] is now present Confirmed by CR SCHULTE [facility], REGINA ([id number]) on 12/25/2022 10:57:18 AM Referred By: Electronically Signed By:REGINA MOLINA MD [facility] Transcribed By: MUS Signed By Sukhi Molina MD 12/25/22 105 Normal [facility] Glucose [Mass/volume] in Ser um or PlasmaOrdered By: Froilan Brown on 12-24-2022 Glucose [Mass/Vol] 113 mg/dL High 70-100 [facility] Comment on above: ADA recommended refe rence rangeRandom Glucose Reference Range is dependent on time and content of last meal. Glucose of more than 200 mg/dL in a nonstressed, ambulatory subject supports the diagnosis of Diabetes Mellitus. Result Comment: [place] [facility] Glucose Reference Range is dependent on time and content of last meal. Glucose of more than 200 mg/dL in a nonstressed, ambulatory subject supports the diagnosis of Diabetes Mellitus. ADA recommended reference range Performed By: #### B MP #### [address] No Panel InformationOrdered By: Froilan Brown on 12-24-2022 Estimated GFR (CKD-EPI) > 60.0 mL/Min [facility] Creatinine Clearance (Chem 103.69 [facility] Potassium [Moles/volume] in Serum or PlasmaOrdered By: Froilan Brown on 12-24-2022 Potassium [Moles/Vol] 4.3 mmol/L Normal 3.5-5.1 [facility] Comment on above: Performed By: #### B MP #### [address] Serum or plasma anion gap de terminationOrdered By: Froilan Brown on 12-24-2022 Anion gap [Moles/Vol] 9.5 mmol/L Normal 6.0-15.0 [facility] Comment on above: Performed By: #### B MP #### [address] Sodium [Moles/volume] in Ser um or PlasmaOrdered By: Froilan Brown on 12-24-2022 Sodium [Moles/Vol] 135 mmol/L Low 136-145 [facility] Comment on above: Performed By: #### B MP #### [address] Troponin I High Sensitivityo n 12-24-2022 Troponin I High Sensitivity 7.7 pg/mL Normal 0.0-15.0 [facility] Comment on above: Result Comment: PERF ORMED BY: [place] [address] PATHOLOGIST [employer] HARVINDER GAGE M.D. Performed By: #### V ITD+D2+D3, THYROID PROF II #### [facility] , #### CMP, CBC #### [address] Troponin I.cardiac [Mass/vol ume] in Serum or Plasma by Detection limit <= 0.01 ng/Ordered By: Froilan Brown on 12-24-2022 Troponin I.cardiac DL <= 0.01 ng/mL [Mass/Vol] 7.7 pg/mL 0.0-15.0 [facility] Urea nitrogen [Mass/volume] in Serum or PlasmaOrdered By: Froilan Brown on 12-24-2022 Urea nitrogen [Mass/Vol] 8 mg/dL Normal 7-25 [facility] Comment on above: Performed By: #### B MP #### [facility] [address] CBC AUTO DIFFon 05-27-2022 BASO # 0.1 103/ul Normal 0.0-0.1 [facility] Comment on above: Performed By: #### C BC #### [facility] [address] [place] [address] Dr. Domi Saleem Basophils/100 WBC (Bld) 1.2 % Normal 0.2-2.0 [facility] Comment on above: Performed By: #### C BC #### [facility] [address] [place] [address] Dr. Domi Saleem EO # 0.3 103/ul Normal 0.0-0.7 [facility] Comment on above: Performed By: #### C BC #### [facility] [address] [place] [address] Dr. Domi Saleem Eosinophils/100 WBC (Bld) 3.8 % Normal 0.9-7.0 [facility] Comment on above: Performed By: #### C BC #### [facility] [address] [place] [address] Dr. Domi Saleem Erythrocyte distribution width (RBC) [Ratio] 12.5 % Normal 11.0-15.0 [facility] Comment on above: Performed By: #### C BC #### [facility] [address] [place] [address] Dr. Domi Saleem Hematocrit (Bld) [Volume fraction] 42.5 % Normal 36.0-48.0 [facility] Comment on above: Performed By: #### C BC #### [facility] [address] [place] [address] Dr. Domi Saleem Hemoglobin (Bld) [Mass/Vol] 14.6 g/dL Normal 12.0-16.0 [facility] Comment on above: Performed By: #### C BC #### [facility] [address] [place] [address] Dr. Domi Saleem IG # 0.04 10e3/ul Critically high 0.00-0.03 [facility] Comment on above: Performed By: #### C BC #### [facility] [address] [place] [address] Dr. Domi Saleem IG % 0.6 % Critically high 0.0-0.5 [facility] Comment on above: Performed By: #### C BC #### [facility] [address] [place] [address] Dr. Domi Saleem LYMPH # 1.3 103/ul Normal 1.2-3.8 [facility] Comment on above: Performed By: #### C BC #### [facility] [address] [place] [address] Dr. Domi Saleem Lymphocytes/100 WBC (Bld) 18.5 % Critically low 20.5-60.0 [facility] Comment on above: Performed By: #### C BC #### [facility] [address] [place] [address] Dr. Domi Saleem MANUAL DIFF REQ NO Normal [facility] Comment on above: Performed By: #### C BC #### [facility] [address] [place] [address] Dr. Domi Saleem MCH (RBC) [Entitic mass] 31.1 pg Normal 26.7-34.0 [facility] Comment on above: Performed By: #### C BC #### [facility] [address] [place] [address] Dr. Domi Saleem MCHC (RBC) [Mass/Vol] 34.4 g/dL Normal 29.9-35.2 [facility] Comment on above: Performed By: #### C BC #### [facility] [address] [place] [address] Dr. Domi Saleem MCV (RBC) [Entitic vol] 90.4 fL Normal 81.0-99.0 [facility] Comment on above: Performed By: #### C BC #### [facility] [address] [place] [address] Dr. Domi Saleem MONO # 0.3 103/ul Normal 0.3-0.8 [facility] Comment on above: Performed By: #### C BC #### [facility] [address] [place] [address] Dr. Domi Saleem Monocytes/100 WBC (Bld) 4.2 % Normal 1.7-12.0 [facility] Comment on above: Performed By: #### C BC #### [facility] [address] [place] [address] Dr. Domi Saleem NEUT # 5.0 103/ul Normal 1.4-6.5 [facility] Comment on above: Performed By: #### C BC #### [facility] [address] [place] [address] Dr. Domi Saleem Neutrophils/100 WBC (Bld) 71.7 % Normal 43.0-75.0 [facility] Comment on above: Performed By: #### C BC #### [facility] [address] [place] [address] Dr. Domi Saleem Platelet mean volume (Bld) [Entitic vol] 8.6 fL Critically low 9.5-13.5 [facility] Comment on above: Performed By: #### C BC #### [facility] [address] [place] [address] Dr. Domi Saleem PLT 265 103/ul Normal 150-450 [facility] Comment on above: Performed By: #### C BC #### [facility] [address] [place] [address] Dr. Domi Saleem RBC 4.70 106/ul Normal 4.20-5.40 [facility] Comment on above: Performed By: #### C BC #### [facility] [address] [place] [address] Dr. Domi Saleem WBC 6.9 103/ul Normal 4.0-11.0 [facility] Comment on above: Performed By: #### C BC #### [facility] [address] [place] [address] Dr. Domi Saleem PROF 14(COMP METB)on 023 Albumin [Mass/Vol] 3.7 g/dL Normal 3.4-5.0 [facility] Comment on above: Performed By: #### C MP #### [facility] [address] [place] [address] Dr. Domi Saleem Albumin/Globulin [Mass ratio] 0.9 {ratio} Normal [facility] Comment on above: Performed By: #### C MP #### [facility] [address] [place] [address] Dr. Domi Saleem ALP [Catalytic activity/Vol] 101 U/L Normal 46-116 [facility] Comment on above: Performed By: #### C MP #### [facility] [address] [place] [address] Dr. Domi Saleem ALT [Catalytic activity/Vol] 15 U/L Normal 14-59 [facility] Comment on above: Performed By: #### C MP #### [facility] [address] [place] [address] Dr. Domi Saleem Anion gap [Moles/Vol] 11.9 mmol/L Normal [facility] Comment on above: Performed By: #### C MP #### [facility] [address] [place] [address] Dr. Domi Saleem AST [Catalytic activity/Vol] 16 U/L Normal 15-37 [facility] Comment on above: Performed By: #### C MP #### [facility] [address] [place] [address] Dr. Domi Saleem Bilirubin [Mass/Vol] 0.3 mg/dL Normal 0.2-1.0 [facility] Comment on above: Performed By: #### C MP #### [facility] [address] [place] [address] Dr. Domi Saleem Calcium [Mass/Vol] 9.0 mg/dL Normal 8.5-10.1 [facility] Comment on above: Performed By: #### C MP #### [facility] [address] [place] [address] Dr. Domi Saleem Chloride [Moles/Vol] 100 mmol/L Normal 98-107 [facility] Comment on above: Performed By: #### C MP #### [facility] [address] [place] [address] Dr. Domi Saleem CO2 [Moles/Vol] 29.0 mmol/L Normal 21.0-32.0 [facility] Comment on above: Performed By: #### C MP #### [facility] [address] [place] [address] Dr. Domi Saleem Creatinine [Mass/Vol] 0.69 mg/dL Normal 0.55-1.02 [facility] Comment on above: Performed By: #### C MP #### [facility] [address] [place] [address] Dr. Domi Saleem EGFR-AF DJIBOUTIAN >60 Normal >=60 [facility] Comment on above: Performed By: #### C MP #### [facility] [address] [place] [address] Dr. Domi Saleem EGFR-NON AF DJIBOUTIAN >60 Normal >=60 [facility] Comment on above: Performed By: #### C MP #### [facility] [address] [place] [address] Dr. Domi Saleem Globulin (S) [Mass/Vol] 4.2 g/dL Normal [facility] Comment on above: Performed By: #### C MP #### [facility] [address] [place] [address] Dr. Domi Saleem Glucose [Mass/Vol] 124 mg/dL Critically high 74-106 [facility] Comment on above: Performed By: #### C MP #### [facility] [address] [place] [address] Dr. Domi Saleem Potassium [Moles/Vol] 4.9 mmol/L Normal 3.5-5.1 [facility] Comment on above: Performed By: #### C MP #### [facility] [address] [place] [address] Dr. Domi Saleem Protein [Mass/Vol] 7.9 g/dL Normal 6.4-8.2 [facility] Comment on above: Performed By: #### C MP #### [facility] [address] [place] [address] Dr. Domi Saleem Sodium [Moles/Vol] 136 mmol/L Normal 136-145 [facility] Comment on above: Performed By: #### C MP #### [facility] [address] [place] [address] Dr. Domi Saleem Urea nitrogen [Mass/Vol] 9.0 mg/dL Normal 7.0-18.0 [facility] Comment on above: Performed By: #### C MP #### [facility] [address] [place] [address] Dr. Domi Saleem Urea nitrogen/Creatinine [Mass ratio] 13.0 mg/mg Normal [facility] Comment on above: Performed By: #### C MP #### [facility] [address] [place] [address] Dr. Domi Saleem SED RATE [facility] 2022 SED RATE 21 mm/hr Normal <=30 [facility] Comment on above: Performed By: #### S EDR #### [facility] [address] [place] [address] Dr. Domi Saleem CHEMISTRYOrdered By: SYSTEM SYSTEM on 02-11-2022 Anion gap [Moles/Vol] 14 mmol/L Normal 6 - 16 mEq/L [facility]isol Calcium [Mass/Vol] 9.2 mg/dL Normal 8.9 - 11. 1 mg/dL [facility] Chloride [Moles/Vol] 92 mmol/L Low 101 - 1 11 mmol/L [facility] CO2 [Moles/Vol] 28 mmol/L Normal 21 - 31 mmol/L [facility] Creatinine [Mass/Vol] 0.8 mg/dL Normal 0.5 - 1.3 mg/dL [facility] GFR/1.73 sq M.predicted among blacks MDRD (S/P/Bld) [Vol rate/Area] mL/min/1.73 m2 Normal >=59mL/min /1.73 m2 [facility] Chem S GFR/1.73 sq M.predicted among non-blacks MDRD (S/P/Bld) [Vol rate/Area] mL/min/1.73 m2 Normal >=59mL/min /1.73 m2 [facility] Chem S Glucose [Mass/Vol] 108 mg/dL Normal 55 - 199 mg/dL [facility] Potassium [Moles/Vol] 4.0 mmol/L Normal 3.5 - 5.3 mmol/L [facility] Sodium [Moles/Vol] 130 mmol/L Low 135 - 145 mmol/L [facility] Urea nitrogen [Mass/Vol] 16 mg/dL Normal 5 - 21 mg/dL [facility] Remisol Urea nitrogen/Creatinine [Mass ratio] 20 mg/mg Normal 10 - 20 [facility] Remisol HEMATOLOGYOrdered By: John Ellsworth on 02-11-2022 Erythrocyte distribution width (RBC) [Ratio] 13.2 % Normal 10.9 - 14.2 % [facility] Hematocrit (Bld) [Volume fraction] 42.8 % Normal 34.0 - 46.0 % [facility] Hemoglobin (Bld) [Mass/Vol] 15.1 g/dL Normal 12.0 - 16.0 gm/dL [facility] MCH (RBC) [Entitic mass] 31.6 pg Normal 27.0 - 34.0 pg [facility] MCHC (RBC) [Mass/Vol] 35.2 g/dL Normal 31.4 - 36.0 gm/dL [facility] MCV (RBC) [Entitic vol] 89.7 fL Normal 80.0 - 100.0 fL [facility] Platelet mean volume (Bld) [Entitic vol] 6.8 fL Normal 6.4 - 10.8 fL [facility] Platelets (Bld) [#/Vol] 275.0 E9/L Normal 150.0 - 500.0 E9/L [facility] RBC (Bld) [#/Vol] 4.8 E12/L Normal 4.3 - 5.9 E12/L [facility] WBC corrected for nucl RBC Auto (Bld) [#/Vol] 7.3 E9/L Normal 4.0 - 11.0 E9/L [facility] CBC AUTO DIFFon 11-19-2021 BASO # 0.1 103/ul Normal 0.0-0.1 [facility] Comment on above: Performed By: #### C BC #### [facility] [address] [place] [address] Dr. Domi Saleem Basophils/100 WBC (Bld) 0.9 % Normal 0.2-2.0 [facility] Comment on above: Performed By: #### C BC #### [facility] [address] [place] [address] Dr. Domi Saleem EO # 0.2 103/ul Normal 0.0-0.7 [facility] Comment on above: Performed By: #### C BC #### [facility] [address] [place] [address] Dr. Domi Saleem Eosinophils/100 WBC (Bld) 2.4 % Normal 0.9-7.0 [facility] Comment on above: Performed By: #### C BC #### [facility] [address] [place] [address] Dr. Domi Saleem Erythrocyte distribution width (RBC) [Ratio] 12.6 % Normal 11.0-15.0 [facility] Comment on above: Performed By: #### C BC #### [facility] [address] [place] [address] Dr. Domi Saleem Hematocrit (Bld) [Volume fraction] 44.4 % Normal 36.0-48.0 [facility] Comment on above: Performed By: #### C BC #### [facility] [address] [place] [address] Dr. Domi Saleem Hemoglobin (Bld) [Mass/Vol] 15.1 g/dL Normal 12.0-16.0 [facility] Comment on above: Performed By: #### C BC #### [facility] [address] [place] [address] Dr. Domi Saleem IG # 0.04 10e3/ul Critically high 0.00-0.03 [facility] Comment on above: Performed By: #### C BC #### [facility] [address] [place] [address] Dr. Domi Saleem IG % 0.5 % Normal 0.0-0.5 [facility] Comment on above: Performed By: #### C BC #### [facility] [address] [place] [address] Dr. Domi Saleem LYMPH # 1.6 103/ul Normal 1.2-3.8 [facility] Comment on above: Performed By: #### C BC #### [facility] [address] [place] [address] Dr. Domi Saleem Lymphocytes/100 WBC (Bld) 19.1 % Critically low 20.5-60.0 [facility] Comment on above: Performed By: #### C BC #### [facility] [address] [place] [address] Dr. Domi Saleem MANUAL DIFF REQ NO Normal [facility] Comment on above: Performed By: #### C BC #### [facility] [address] [place] [address] Dr. Domi Saleem MCH (RBC) [Entitic mass] 31.5 pg Normal 26.7-34.0 [facility] Comment on above: Performed By: #### C BC #### [facility] [address] [place] [address] Dr. Domi Saleem MCHC (RBC) [Mass/Vol] 34.0 g/dL Normal 29.9-35.2 [facility] Comment on above: Performed By: #### C BC #### [facility] [address] [place] [address] Dr. Domi Saleem MCV (RBC) [Entitic vol] 92.5 fL Normal 81.0-99.0 [facility] Comment on above: Performed By: #### C BC #### [facility] [address] [place] [address] Dr. Domi Saleem MONO # 0.5 103/ul Normal 0.3-0.8 [facility] Comment on above: Performed By: #### C BC #### [facility] [address] [place] [address] Dr. Domi Saleem Monocytes/100 WBC (Bld) 6.1 % Normal 1.7-12.0 [facility] Comment on above: Performed By: #### C BC #### [facility] [address] [place] [address] Dr. Domi Saleem NEUT # 5.8 103/ul Normal 1.4-6.5 [facility] Comment on above: Performed By: #### C BC #### [facility] [address] [place] [address] Dr. Domi Saleem Neutrophils/100 WBC (Bld) 71.0 % Normal 43.0-75.0 [facility] Comment on above: Performed By: #### C BC #### [facility] [address] [place] [address] Dr. Domi Saleem Platelet mean volume (Bld) [Entitic vol] 8.7 fL Critically low 9.5-13.5 [facility] Comment on above: Performed By: #### C BC #### [facility] [address] [place] [address] Dr. Domi Saleem PLT 246 103/ul Normal 150-450 [facility] Comment on above: Performed By: #### C BC #### [facility] [address] [place] [address] Dr. Domi Saleem RBC 4.80 106/ul Normal 4.20-5.40 [facility] Comment on above: Performed By: #### C BC #### [facility] [address] [place] [address] Dr. Domi Saleem WBC 8.2 103/ul Normal 4.0-11.0 [facility] Comment on above: Performed By: #### C BC #### [facility] [address] [place] [address] Dr. Domi Saleem GLYCOHEMOGLOBIN A1Con 2021 ADA RECOMMENDATION SEE BELOW Normal [facility] Comment on above: Result Comment: ADA RECOMMENDED LIMIT 4.0 - 6.0 ADA THERAPEUTIC TARGET < 7.0 ACTION SUGGESTED > 7.0 Performed By: #### A 1C #### [facility] [address] [place] [address] Dr. Domi Saleem Glucose [Mass/Vol] 117 mg/dL Normal [facility] Comment on above: Performed By: #### A 1C #### [facility] [address] [place] [address] Dr. Domi Saleem HbA1c (Bld) [Mass fraction] 5.7 % Normal 4.5-6.2 [facility] Comment on above: Performed By: #### A 1C #### [facility] [address] [place] [address] Dr. Domi Saleem PROF 14(COMP METB)on 022 Albumin [Mass/Vol] 4.0 g/dL Normal 3.4-5.0 [facility] Comment on above: Performed By: #### C MP #### [facility] [address] [place] [address] Dr. Domi Saleem Albumin/Globulin [Mass ratio] 1.1 {ratio} Normal [facility] Comment on above: Performed By: #### C MP #### [facility] [address] [place] [address] Dr. Domi Saleem ALP [Catalytic activity/Vol] 91 U/L Normal 46-116 [facility] Comment on above: Performed By: #### C MP #### [facility] [address] [place] [address] Dr. Domi Saleem ALT [Catalytic activity/Vol] 16 U/L Normal 14-59 [facility] Comment on above: Performed By: #### C MP #### [facility] [address] [place] [address] Dr. Domi Saleem Anion gap [Moles/Vol] 10.3 mmol/L Normal [facility] Comment on above: Performed By: #### C MP #### [facility] [address] [place] [address] Dr. Domi Saleem AST [Catalytic activity/Vol] 24 U/L Normal 15-37 [facility] Comment on above: Performed By: #### C MP #### [facility] [address] [place] [address] Dr. Domi Saleem Bilirubin [Mass/Vol] 0.5 mg/dL Normal 0.2-1.0 [facility] Comment on above: Performed By: #### C MP #### [facility] [address] [address] [address] Domi Saleem Calcium [Mass/Vol] 9.1 mg/dL Normal 8.5-10.1 [facility] [facility] Comment on above: Performed By: #### C MP #### [facility] [address] [address] [address] Domi Saleem Chloride [Moles/Vol] 95 mmol/L Critically low 98-107 [facility] Comment on above: Performed By: #### C MP #### [facility] [address] [address] [address] Domi aSleem CO2 [Moles/Vol] 27.4 mmol/L Normal 21.0-32.0 [facility] Comment on above: Performed By: #### C MP #### [facility] [address] [address] [address] Domi Saleem Creatinine [Mass/Vol] 0.77 mg/dL Normal 0.55-1.02 [facility] Comment on above: Performed By: #### C MP #### [facility] [address] [address] [address] Domi Saleem EGFR-AF DJIBOUTIAN >60 Normal >=60 [facility] Comment on above: Performed By: #### C MP #### [facility] [address] [address] [address] Domi Saleem EGFR-NON AF DJIBOUTIAN >60 Normal >=60 [facility] Comment on above: Performed By: #### C MP #### [facility] [address] [address] [address] Domi Saleem Globulin (S) [Mass/Vol] 3.8 g/dL Normal [facility] Comment on above: Performed By: #### C MP #### [facility] [address] [place] [address] Dr. Domi Saleem Glucose [Mass/Vol] 141 mg/dL Critically high 74-106 T [facility] Comment on above: Performed By: #### C MP #### [facility] [address] [address] [address] Domi Saleem Potassium [Moles/Vol] 4.7 mmol/L Normal 3.5-5.1 [facility] Comment on above: Performed By: #### C MP #### [facility] [address] [address] [address] Domi Saleem Protein [Mass/Vol] 7.8 g/dL Normal 6.4-8.2 [facility] Comment on above: Performed By: #### C MP #### [facility] [address] [place] [address] Dr. Domi Saleem Sodium [Moles/Vol] 128 mmol/L Critically low 136-145 Th [facility] Comment on above: Performed By: #### C MP #### [facility] [address] [place] [address] Dr. Domi Saleem Urea nitrogen [Mass/Vol] 14.0 mg/dL Normal 7.0-18.0 [facility] Comment on above: Performed By: #### C MP #### [facility] [address] [place] [address] Dr. Domi Saleem Urea nitrogen/Creatinine [Mass ratio] 18.2 mg/mg Normal [facility] Comment on above: Performed By: #### C MP #### [facility] [address] [place] [address] Dr. Domi Saleem SED RATE WESTERGRENon 2021 SED RATE 34 mm/hr Critically high <=30 [facility] Comment on above: Performed By: #### S EDR #### [facility] [address] [place] [address] Dr. Domi Saleem CBC AUTO DIFFon 07-18-2021 BASO # 0.1 103/ul Normal 0.0-0.1 [facility] Comment on above: Performed By: #### C BC #### [facility] [address] [place] [address] Dr. Domi Saleem Basophils/100 WBC (Bld) 1.2 % Normal 0.2-2.0 [facility] Comment on above: Performed By: #### C BC #### [facility] [address] [place] [address] Dr. Domi Saleem EO # 0.2 103/ul Normal 0.0-0.7 [facility] Comment on above: Performed By: #### C BC #### [facility] [address] [place] [address] Dr. Domi Saleem Eosinophils/100 WBC (Bld) 4.0 % Normal 0.9-7.0 [facility] Comment on above: Performed By: #### C BC #### [facility] [address] [place] [address] Dr. Domi Saleem Erythrocyte distribution width (RBC) [Ratio] 12.8 % Normal 11.0-15.0 [facility] Comment on above: Performed By: #### C BC #### [facility] [address] [place] [address] Dr. Domi Saleem Hematocrit (Bld) [Volume fraction] 45.2 % Normal 36.0-48.0 [facility] Comment on above: Performed By: #### C BC #### [facility] [address] [place] [address] Dr. Domi Saleem Hemoglobin (Bld) [Mass/Vol] 15.0 g/dL Normal 12.0-16.0 [facility] Comment on above: Performed By: #### C BC #### [facility] [address] [place] [address] Dr. Domi Saleem IG # 0.02 10e3/ul Normal 0.00-0.03 [facility] Comment on above: Performed By: #### C BC #### [facility] [address] [place] [address] Dr. Domi Saleem IG % 0.4 % Normal 0.0-0.5 [facility] Comment on above: Performed By: #### C BC #### [facility] [address] [place] [address] Dr. Domi Saleem LYMPH # 1.1 103/ul Critically low 1.2-3.8 [facility] Comment on above: Performed By: #### C BC #### [facility] [address] [place] [address] Dr. Domi Saleem Lymphocytes/100 WBC (Bld) 22.8 % Normal 20.5-60.0 [facility] Comment on above: Performed By: #### C BC #### [facility] [address] [place] [address] Dr. Domi Saleem MANUAL DIFF REQ NO Normal [facility] Comment on above: Performed By: #### C BC #### [facility] [address] [place] [address] Dr. Domi Saleem MCH (RBC) [Entitic mass] 31.4 pg Normal 26.7-34.0 [facility] Comment on above: Performed By: #### C BC #### [facility] [address] [place] [address] Dr. Domi Saleem MCHC (RBC) [Mass/Vol] 33.2 g/dL Normal 29.9-35.2 [facility] Comment on above: Performed By: #### C BC #### [facility] [address] [place] [address] Dr. Domi Saleme MCV (RBC) [Entitic vol] 94.8 fL Normal 81.0-99.0 [facility] Comment on above: Performed By: #### C BC #### [facility] [address] [place] [address] Dr. Domi Saleem MONO # 0.3 103/ul Normal 0.3-0.8 [facility] Comment on above: Performed By: #### C BC #### [facility] [address] [place] [address] Dr. Domi Saleem Monocytes/100 WBC (Bld) 6.8 % Normal 1.7-12.0 [facility] Comment on above: Performed By: #### C BC #### [facility] [address] [place] [address] Dr. Domi Saleem NEUT # 3.2 103/ul Normal 1.4-6.5 [facility] Comment on above: Performed By: #### C BC #### [facility] [address] [place] [address] Dr. Domi Saleem Neutrophils/100 WBC (Bld) 64.8 % Normal 43.0-75.0 [facility] Comment on above: Performed By: #### C BC #### [facility] [address] [place] [address] Dr. Domi Saleem Platelet mean volume (Bld) [Entitic vol] 8.9 fL Critically low 9.5-13.5 [facility] Comment on above: Performed By: #### C BC #### [facility] [address] [place] [address] Dr. Domi Saleem PLT 222 103/ul Normal 150-450 [facility] Comment on above: Performed By: #### C BC #### [facility] [address] [place] [address] Dr. Domi Saleem RBC 4.77 106/ul Normal 4.20-5.40 [facility] Comment on above: Performed By: #### C BC #### [facility] [address] [place] [address] Dr. Domi Saleem WBC 5.0 103/ul Normal 4.0-11.0 [facility] Comment on above: Performed By: #### C BC #### [facility] [address] [place] [address] Dr. Domi Saleem PROF 14(COMP METB)on 022 Albumin [Mass/Vol] 3.6 g/dL Normal 3.4-5.0 [facility] Comment on above: Performed By: #### C MP #### [facility] [address] [place] [address] Dr. Domi Saleem Albumin/Globulin [Mass ratio] 1.0 {ratio} Normal [facility] Comment on above: Performed By: #### C MP #### [facility] [address] [place] [address] Dr. Domi Saleem ALP [Catalytic activity/Vol] 79 U/L Normal 46-116 [facility] Comment on above: Performed By: #### C MP #### [facility] [address] [place] [address] Dr. Domi Saleem ALT [Catalytic activity/Vol] 19 U/L Normal 14-59 [facility] Comment on above: Performed By: #### C MP #### [facility] [address] [address] [address] Domi Saleem Anion gap [Moles/Vol] 10.0 mmol/L Normal Th [facility] Comment on above: Performed By: #### C MP #### [facility] [address] [address] [address] Domi Saleem AST [Catalytic activity/Vol] 13 U/L Critically low 15-37 [facility] Comment on above: Performed By: #### C MP #### [facility] [address] [address] [address] Domi Saleem Bilirubin [Mass/Vol] 0.3 mg/dL Normal 0.2-1.0 [facility] Comment on above: Performed By: #### C MP #### [facility] [address] [address] [address] Domi Saleem Calcium [Mass/Vol] 8.4 mg/dL Critically low 8.5-10.1 [facility] Comment on above: Performed By: #### C MP #### [facility] [address] [place] [address] Dr. Domi Saleem Chloride [Moles/Vol] 101 mmol/L Normal 98-107 [facility] Comment on above: Performed By: #### C MP #### [facility] [address] [address] [address] Domi Saleem CO2 [Moles/Vol] 31.3 mmol/L Normal 21.0-32.0 [facility] Comment on above: Performed By: #### C MP #### [facility] [address] [address] [address] Domi Saleem Creatinine [Mass/Vol] 0.75 mg/dL Normal 0.55-1.02 [facility] Comment on above: Performed By: #### C MP #### [facility] [address] [address] [address] Domi Saleem EGFR-AF DJIBOUTIAN >60 Normal >=60 [facility] Comment on above: Performed By: #### C MP #### [facility] [address] [address] [address] Domi Saleem EGFR-NON AF DJIBOUTIAN >60 Normal >=60 [facility] Comment on above: Performed By: #### C MP #### [facility] [address] [address] [address] Domi Saleem Globulin (S) [Mass/Vol] 3.6 g/dL Normal [facility] Comment on above: Performed By: #### C MP #### [facility] [address] [address] [address] Domi Saleem Glucose [Mass/Vol] 120 mg/dL Critically high 74-106 T [facility] Comment on above: Performed By: #### C MP #### [facility] [address] [address] [address] Domi Saleem Potassium [Moles/Vol] 5.3 mmol/L Critically high 3.5-5.1 [facility] Comment on above: Performed By: #### C MP #### [facility] [address] [address] [address] Domi Saleem Protein [Mass/Vol] 7.2 g/dL Normal 6.1-8.2 [facility] Comment on above: Performed By: #### C MP #### [facility] [address] [address] [address] Domi Saleem Sodium [Moles/Vol] 137 mmol/L Normal 136-145 [facility] Comment on above: Performed By: #### C MP #### [facility] [address] [address] [address] Domi Saleem Urea nitrogen [Mass/Vol] 20.0 mg/dL Critically high 7.0-18.0 [facility] Comment on above: Performed By: #### C MP #### [facility] [address] [address] [address] Domi Saleem Urea nitrogen/Creatinine [Mass ratio] 26.7 mg/mg Normal [facility] Comment on above: Performed By: #### C MP #### [facility] [address] [place], [place] [address] Dr. Domi Saleem SED RATE [facility] 2021 SED RATE 13 mm/hr Normal <=30 [facility] Comment on above: Performed By: #### S EDR #### [facility] [address] [place], [place] [address] Dr. Domi Saleem CNOVSPon 08-20-2018 CNOVSP Visit (SP) Office (H EMACL) RUMA CARLTON ([id number]) 1960 F Date Time Provider Department 08/20/18 [...] ABS GRAN CT + CBC (FOR [facility] USE) - COMP METABOLIC PANEL - PROTEIN ELECTROPHORESIS W/INTERP - IMMUNOFIXATION SCREEN, SERUM - KAPPA/GERMAIN,FREE,SER - LUPUS ANTICOAG PL 2. 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 Will check labs and see me in follow up - ABS GRAN CT + CBC (FOR [facility] USE) - COMP METABOLIC PANEL - PROTEIN ELECTROPHORESIS W/INTERP - IMMUNOFIXATION SCREEN, SERUM - KAPPA/GERMAIN,FREE,SER - LUPUS ANTICOAG PL Ledy Gilman MD Referring Provider: CARMELITA SINGH JR [[id number]] Allergies As of Date: 08/20/2018 Noted Allergy [...] Order(s):ABS GRAN CT + CBC (FOR [facility] USE) [SQRAGCBC] Order #: [id number] FUTURE COMP METABOLIC PANEL [SQCMP] Order #: [id number] FUTURE PROTEIN ELECTROPHORESIS W/INTERP [SQSEPG] Order #: [id number] FUTURE IMMUNOFIXATION SCREEN, SERUM [SQIFESC] Order #: [id number] FUTURE KAPPA/GERMAIN,FREE,SER [SQKLFRS] Order #: [id number] FUTURE LUPUS ANTICOAG PL [SQLUPUSP] Order #: [id number] FUTURE Disposition: Return in about 1 year [...] by LEDY GILMAN MD on 08/20/18 Normal [facility] PROGRESSon 08-20-2018 Protein mass conc HNO ID: [id number] Author: Ledy Gilman Service: ? Author Type: [...] Tubal ligation - PAST SURGICAL HISTORY OF 2008 back(L4-L5), - REMOVAL GALLBLADDER - REMOVAL GALLBLADDER [...] ABS GRAN CT + CBC (FOR [facility] USE) - COMP METABOLIC PANEL - PROTEIN ELECTROPHORESIS W/INTERP - IMMUNOFIXATION SCREEN, SERUM - KAPPA/GERMAIN,FREE,SER - LUPUS ANTICOAG PL 2. 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 Will check labs and see me in follow up - ABS GRAN CT + CBC (FOR [facility] USE) - COMP METABOLIC PANEL - PROTEIN ELECTROPHORESIS W/INTERP - IMMUNOFIXATION SCREEN, SERUM - KAPPA/GERMAIN,FREE,SER - LUPUS ANTICOAG PL Ledy Gilman MD Normal [facility] Vital Signs Date Time Vital Sign Value Performing Clinician Facility 12-22-2024 15:23-0400 Body height 157.48 cm Anibal Chaudhary MD Work Phone: [facility] 12-22-2024 15:23-0400 Body mass index (BMI) [Ratio] 43.7 kg/m2 Anibal Chaudhary MD Work Phone: [facility] 12-22-2024 15:23-0400 Body temperature 96.9 [degF] Anibal Chaudhary MD Work Phone: [facility] 12-22-2024 15:23-0400 Body weight 108.52 kg Anibal Chaudhary MD Work Phone: [facility] 12-22-2024 15:23-0400 Diastolic blood pressure 60 mm[Hg] Anibal Chaudhary MD Work Phone: [facility] 12-22-2024 15:23-0400 Heart rate 49 /min Anibal Chaudhary MD Work Phone: [facility] 12-22-2024 15:23-0400 Respiratory rate 18 /min Anibal Chaudhary MD Work Phone: [facility] 12-22-2024 15:23-0400 SaO2% (BldA) [Mass fraction] 95 % Anibal Chaudhary MD Work Phone: [facility] 12-22-2024 15:23-0400 Systolic blood pressure 89 mm[Hg] Anibal Chaudhary MD Work Phone: [facility] 12-21-2024 11:13-0400 Body height 157.48 cm Anibal Chaudhary MD Work Phone: [facility] 12-21-2024 11:13-0400 Body mass index (BMI) [Ratio] 43.6 kg/m2 Anibal Chaudhary MD Work Phone: [facility] 12-21-2024 11:13-0400 Body weight 108.12 kg Anibal Chaudhary MD Work Phone: [facility] 12-21-2024 11:13-0400 Diastolic blood pressure 63 mm[Hg] Anibal Chaudhary MD Work Phone: [facility] 12-21-2024 11:13-0400 Heart rate 48 /min Anibal Chaudhary MD Work Phone: [facility] 12-21-2024 11:13-0400 Respiratory rate 14 /min Anibal Chaudhary MD Work Phone: [facility] 12-21-2024 11:13-0400 SaO2% (BldA) [Mass fraction] 96 % Anibal Chaudhary MD Work Phone: [facility] 12-21-2024 11:13-0400 Systolic blood pressure 96 mm[Hg] Anibal Chaudhary MD Work Phone: [facility] 05-28-2024 11:36-0500 Body height 157.48 cm [facility] 05-28-2024 11:36-0500 Body mass index (BMI) [Ratio] 46.7 kg/m2 [facility] 05-28-2024 11:36-0500 Body weight 115.83 kg [facility] 05-28-2024 11:36-0500 Diastolic blood pressure 77 mm[Hg] [facility] 05-28-2024 11:36-0500 Heart rate 77 /min [facility] 05-28-2024 11:36-0500 Respiratory rate 14 /min [facility] 05-28-2024 11:36-0500 SaO2% (BldA) [Mass fraction] 99 % [facility] 05-28-2024 11:36-0500 Systolic blood pressure 121 mm[Hg] [facility] 01-22-2024 10:09-0400 Body height 157.48 cm MD Anibal Chaudhary Work Phone: [facility] 01-22-2024 10:09-0400 Body mass index (BMI) [Ratio] 47.9 kg/m2 MD Anibal Chaudhary Work Phone: [facility] 01-22-2024 10:09-0400 Body weight 118.95 kg MD Anibal Chaudhary Work Phone: [facility] 01-22-2024 10:09-0400 Diastolic blood pressure 84 mm[Hg] MD Anibal Chaudhary Work Phone: [facility] 01-22-2024 10:09-0400 Heart rate 113 /min MD Anibal Chaudhary Work Phone: [facility] 01-22-2024 10:09-0400 SaO2% (BldA) [Mass fraction] 99 % MD Anibal Chaudhary Work Phone: [facility] 01-22-2024 10:09-0400 Systolic blood pressure 124 mm[Hg] MD Anibal Chaudhary Work Phone: [facility] 10-27-2023 13:42-0400 Body height 157.48 cm [facility] 10-27-2023 13:42-0400 Body mass index (BMI) [Ratio] 49.1 kg/m2 [facility] 10-27-2023 13:42-0400 Body weight 122.01 kg [facility] 10-27-2023 13:42-0400 Diastolic blood pressure 81 mm[Hg] [facility] 10-27-2023 13:42-0400 Heart rate 91 /min [facility] 10-27-2023 13:42-0400 Systolic blood pressure 144 mm[Hg] [facility] 08-19-2023 10:39-0400 Body height 157.48 cm MD Anibal Chaudhary Work Phone: [facility] 08-19-2023 10:39-0400 Body mass index (BMI) [Ratio] 48.4 kg/m2 MD Anibal Chaudhary Work Phone: [facility] 08-19-2023 10:39-0400 Body weight 120.2 kg MD Anibal Chaudhary Work Phone: [facility] 08-19-2023 10:39-0400 Diastolic blood pressure 80 mm[Hg] MD Anibal Chaudhary Work Phone: [facility] 08-19-2023 10:39-0400 Heart rate 73 /min MD Anibal Chaudhary Work Phone: [facility] 08-19-2023 10:39-0400 SaO2% (BldA) [Mass fraction] 98 % MD Anibal Chaudhary Work Phone: [facility] 08-19-2023 10:39-0400 Systolic blood pressure 150 mm[Hg] MD Anibal Chaudhary Work Phone: [facility] 05-08-2023 14:56-0500 Body height 157.48 cm MD Anibal Chaudhary Work Phone: [facility] 05-08-2023 14:56-0500 Body mass index (BMI) [Ratio] 42.6 kg/m2 MD Anibal Chaudhary Work Phone: [facility] 05-08-2023 14:56-0500 Body weight 105.74 kg MD Anibal Chaudhary Work Phone: [facility] 05-08-2023 14:56-0500 Diastolic blood pressure 85 mm[Hg] MD Anibal Chaudhary Work Phone: [facility] 05-08-2023 14:56-0500 Heart rate 85 /min MD Anibal Chaudhary Work Phone: [facility] 05-08-2023 14:56-0500 Systolic blood pressure 151 mm[Hg] MD Anibal Chaudhary Work Phone: [facility] 12-27-2022 14:45-0400 Body height 157.48 cm Anibal Chaudhary Other [facility] Other 12-27-2022 14:45-0400 Body mass index (BMI) [Ratio] 38.59 kg/m2 Anibal Chaudhary Other [employer] [facility] Other 12-27-2022 14:45-0400 Body weight 95.71 kg Anibal Chaudhary Other [facility] Other 12-27-2022 14:45-0400 Diastolic blood pressure 81 mm[Hg] Anibal Chaudhary Other [facility] Other 12-27-2022 14:45-0400 SaO2% (BldA) [Mass fraction] 99 % Anibal Chaudhary Other [facility] Other 12-27-2022 14:45-0400 Systolic blood pressure 116 mm[Hg] Anibal Chaudhary Other [facility] Other 12-24-2022 08:00-0400 Body temperature 98.2 [degF] MD Anibal Chaudhary Work Phone: [facility] 12-24-2022 08:00-0400 Diastolic blood pressure 78 mm[Hg] MD Anibal Chaudhary Work Phone: [facility] 12-24-2022 08:00-0400 Heart rate 93 /min MD Anibal Chaudhary Work Phone: [facility] 12-24-2022 08:00-0400 Respiratory rate 18 /min MD Anibal Chaudhary Work Phone: [facility] 12-24-2022 08:00-0400 SaO2% (BldA) [Mass fraction] 99 % MD Anibal Chaudhary Work Phone: [facility] 12-24-2022 08:00-0400 Systolic blood pressure 126 mm[Hg] MD Anibal Chaudhary Work Phone: [facility] 12-24-2022 02:42-0400 Body height 157.48 cm MD Anibal Chaudhary Work Phone: [facility] 12-24-2022 02:42-0400 Body weight 94.4 kg MD Anibal Chaudhary Work Phone: [facility] 11-15-2022 13:00-0400 Body height 157.48 cm Anibal Chaudhary Other [facility] Other 11-15-2022 13:00-0400 Body mass index (BMI) [Ratio] 39.69 kg/m2 Anibal Chaudhary Other [employer] Other 11-15-2022 13:00-0400 Body weight 98.43 kg Anibal Chaudhary Other [employer] Other 11-15-2022 13:00-0400 Diastolic blood pressure 78 mm[Hg] Anibal Chaudhary Other [employer] Other 11-15-2022 13:00-0400 Systolic blood pressure 140 mm[Hg] Anibal Chaudhary Other [employer] Other 09-12-2022 11:30-0400 Body height 157.48 cm Anibal Chaudhary Other [employer] Other 09-12-2022 11:30-0400 Body mass index (BMI) [Ratio] 39.14 kg/m2 Anibal Chaudhary Other [employer] Other 09-12-2022 11:30-0400 Body weight 97.07 kg Anibal Chaudhary Other [employer] Other 09-12-2022 11:30-0400 Diastolic blood pressure 85 mm[Hg] Anibal Chaudhary Other [employer] Other 09-12-2022 11:30-0400 Systolic blood pressure 157 mm[Hg] Anibal Chaudhary Other [employer] Other 04-29-2022 09:45-0500 Body height 157.48 cm Anibal Chaudhary Other [employer] Other 04-29-2022 09:45-0500 Body mass index (BMI) [Ratio] 47.55 kg/m2 Anibal Chaudhary Other [employer] Other 04-29-2022 09:45-0500 Body weight 117.94 kg Anibal Chaudhary Other [employer] Other 04-29-2022 09:45-0500 Diastolic blood pressure 88 mm[Hg] Anibal Chaudhary Other [employer] Other 04-29-2022 09:45-0500 SaO2% (BldA) [Mass fraction] 97 % Anibal Chaudhary Other [employer] Other 04-29-2022 09:45-0500 Systolic blood pressure 132 mm[Hg] Anibal Chaudhary Other [employer] Other 07-07-2020 07:58-0400 Body height 160.02 cm Anibal Chaudhary Work Phone: [facility] 07-07-2020 07:58-0400 Body weight 97.06 kg Anibal Chaudhary Work Phone: [facility] Encounters Encounter Date Encounter Type Care Provider Facility Start: 12-22-2024 End: 12-22-2024 ambulatory Anibal Chaudhary MD Work Phone: [facility] Work Phone: Start: 12-22-2024 End: 12-22-2024 Patient encounter procedure Ramy Santacruz MD -[facility] Work Phone: Start: 12-21-2024 End: 12-21-2024 ambulatory Anibal Chaudhary MD Work Phone: [facility] Work Phone: Start: 12-21-2024 End: 12-21-2024 Patient encounter procedure Anibal Chaudhary MD -[facility] Work Phone: Start: 12-14-2024 End: 12-14-2024 ambulatory KARON ADAMS [facility] Start: 10-12-2024 Non-patient / Non-visit Dar[facility] Work Phone: Start: 08-31-2024 End: 08-31-2024 ambulatory [facility] Start: 08-04-2024 End: 08-04-2024 ambulatory [facility] Start: [facility]: 07-21-[facility]24 End: 07-21-2024 ambulatory MARCELLO [facility] Start: 06-29-2024 End: 06-29-2024 ambulatory [facility] Start: 05-28-2024 End: 05-28-2024 ambulatory [facility] Work Phone: Start: 05-28-2024 End: 05-28-2024 Patient encounter procedure [facility] Work Phone: Start: 05-26-2024 End: 05-26-2024 ambulatory [facility] Start: 05-20-2024 Non-patient / Non-visit [facility] Work Phone: Start: 05-20-2024 End: 05-20-2024 ambulatory [facility] Start: 05-17-2024 Non-patient / Non-visit [facility] Work Phone: Start: 05-12-2024 Evaluation and management of inpatient YASH CAMILO [facility] Start: 05-12-2024 Non-patient / Non-visit [facility] Work Phone: Start: 05-11-2024 End: 05-14-2024 Evaluation and management of inpatient DARY AMARAL [facility] Start: 05-11-2024 End: 05-11-2024 Non-patient / Non-visit [facility] Work Phone: Start: 05-11-2024 Non-patient / Non-visit [facility] Work Phone: Start: 05-10-2024 Non-patient / Non-visit [facility] Work Phone: Start: 02-05-2024 End: 02-05-[address] [facility] Start: 01-22-2024 End: 01-22-2024 ambulatory MD Anibal Chaudhary Work Phone: [facility] Work Phone: Start: 01-22-2024 End: 01-22-2024 Patient encounter procedure MD Anibal Chaudhary Work Phone: [facility] Work Phone: Start: 01-21-2024 Non-patient / Non-visit MD Anibal Chaudhary Work Phone: [facility] Work Phone: Start: 01-08-2024 End: 01-08-2024 ambulatory AGUEDA ZUÑIGA [facility] Start: 01-08-2024 Non-patient / Non-visit MD Anibal Chaudhary Work Phone: [facility] Work Phone: Start: 12-30-2023 Evaluation and management of inpatient [facility] Start: 12-29-2023 Evaluation and management of inpatient [facility] Start: 12-29-2023 Evaluation and management of inpatient [facility] Start: 12-28-2023 Evaluation and management of inpatient RHONDA BARNES [facility] Start: 12-28-2023 Evaluation and management of inpatient RHONDA BARNES [facility] Start: 12-27-2023 Evaluation and management of inpatient AGUEDA ZUÑIGA [facility] Start: 12-26-2023 Evaluation and management of inpatient AGUEDA ZUÑIGA [facility] Start: 12-26-2023 Evaluation and management of inpatient AGUEDA RIVERAOTF [facility] Start: 12-25-2023 Evaluation and management of inpatient ALAN [facility] Start: 12-25-2023 Evaluation and management of inpatient AGUEDA Miramontes PLAISTOWMONO [facility] Start: 12-24-2023 Evaluation and management of inpatient RIAN BUTTS [facility] Start: 12-23-2023 Evaluation and management of inpatient [facility] Start: 12-22-2023 Evaluation and management of inpatient [facility] Start: 12-21-2023 Evaluation and management of inpatient [facility] Start: 12-19-2023 [facility] Start: 12-18-2023 [facility]: 12-18-2023 Evaluation and management of inpatient [facility] Start: 12-17-2023 Evaluation and management of inpatient ALAN [facility] Start: 12-16-2023 Evaluation and management of inpatient ALAN [facility] Start: 12-16-2023 Evaluation and management of inpatient ALAN [facility] Start: 12-04-2023 End: 12-04-2023 Patient encounter procedure MD Anibal Chaudhary Work Phone: [facility] [place] Work Phone: Start: 12-04-2023 End: 12-04-2023 ambulatory MD Anibal Chaudhary Work Phone: [facility] Work Phone: Start: 12-02-2023 End: 12-02-2023 Departed Referred MD Anibal Chaudhary Work Phone: [facility] [place] Work Phone: Start: 12-02-2023 End: 12-02-2023 Patient encounter procedure MD Anibal Chaudhary Work Phone: [facility] [place] Work Phone: Start: 12-02-2023 End: 12-02-2023 ambulatory MD Anibal Chaudhary Work Phone: [facility] Work Phone: Start: 11-03-2023 End: 11-03-2023 Patient encounter procedure MD Anibal Chaudhary Work Phone: [facility] [place] Work Phone: Start: 11-03-2023 End: 11-03-2023 ambulatory MD Anibal Chaudhary Work Phone: [facility] Work Phone: Start: 10-27-2023 End: 10-27-2023 ambulatory [facility] Work Phone: Start: 10-27-2023 End: 10-27-2023 Patient encounter procedure [facility] Work Phone: Start: 09-07-2023 Non-patient / Non-visit [facility] Work Phone: Start: 08-19-2023 End: 08-19-2023 ambulatory MD Anibal Chaudhary Work Phone: [facility] Work Phone: Start: 08-19-2023 End: 08-19-2023 Patient encounter procedure MD Anibal Chaudhary Work Phone: [facility] Work Phone: Start: 07-10-2023 Non-patient / Non-visit MD Anibal Chaudhary Work Phone: [facility] Work Phone: Start: 07-08-2023 End: 07-08-2023 Patient encounter procedure MD Anibal Chaudhary Work Phone: [facility] Start: 07-08-2023 End: 07-08-2023 ambulatory MD Anibal Chaudhary Work Phone: [facility] Work Phone: Start: 06-04-2023 End: 06-04-2023 ambulatory JOSH POCOS Not Available Start: 05-29-2023 End: 08-27-2023 ambulatory Josh Pocos Facility[facility] Start: 05-29-2023 End: 08-27-2023 Recurring Josh Pocos [facility] Start: 05-29-2023 End: 05-29-2023 ambulatory ANIBAL CHAUDHARY Facility[facility] Start: 05-29-2023 End: 05-29-2023 Patient encounter procedure Josh Pocos [facility] Start: 05-16-2023 End: 05-16-2023 ambulatory JOSH POCOS Not Available Start: 05-08-2023 End: 05-08-2023 ambulatory MD Anibal Chaudhary Work Phone: [facility] Work Phone: Start: 05-08-2023 End: 05-08-2023 Patient encounter procedure MD Anibal Chaudhary Work Phone: [facility] Work Phone: Start: 02-25-2023 End: 02-25-2023 Departed Referred MD Anibal Chaudhary Work Phone: [facility] Work Phone: Start: 02-25-2023 End: 02-25-2023 ambulatory MD Anibal Chaudhary Work Phone: [facility] Work Phone: Start: 02-11-2023 End: 02-11-2023 ambulatory Anibal Chaudhary Other [employer] Other Start: 02-11-2023 Telephone encounter Anibal Chaudhary [facility] Start: 12-27-2022 End: 12-27-2022 ambulatory Anibal Chaudhary Other [employer] Other Start: 12-27-2022 Office outpatient visit 25 minutes Anibal Chaudhary [facility] Start: 12-25-2022 End: 12-25-2022 ambulatory Anibal Chaudhary Other [employer] Other Start: 12-25-2022 Telephone encounter Anibal Chaudhary [facility] Start: 12-24-2022 End: 12-24-2022 Evaluation and management of inpatient MD Anibal Chaudhary Work Phone: [facility] Work Phone: Start: 12-24-2022 End: 12-24-2022 observation encounter MD Anibal Chaudhary Work Phone: [facility] Work Phone: Start: 12-24-2022 End: 12-24-2022 ambulatory Petr Kowalski Facility:[facility] Start: 12-20-2022 End: 12-20-2022 ambulatory Anibal Chaudhary Other [employer] Other Start: 12-20-2022 Telephone encounter Anibal Chaudhary [facility] Start: 11-15-2022 End: 11-15-2022 ambulatory Anibal Chaudhary Other [employer] Other Start: 11-15-2022 Office outpatient visit 15 minutes Anibal Chaudhary [facility] Start: 09-12-2022 End: 09-12-2022 ambulatory Anibal Chaudhary Other [employer] Other Start: 09-12-2022 Office outpatient visit 25 minutes Anibal Chaudhary [facility] Start: 09-12-2022 Telephone encounter Anibal Chaparro [facility] Start: 07-04-2022 End: 07-04-2022 ambulatory Anibal Chaudhary Other [employer] Other Start: 07-04-2022 Telephone encounter Anibal Chaparro [facility] Start: 06-18-2022 End: 06-18-2022 ambulatory Virgilio Mckeon Other [employer] Other Start: 06-18-2022 Telephone encounter Virgilio Mckeon [facility] Start: 05-30-2022 End: 05-30-2022 ambulatory Anibal Chaudhary Other [employer] Other Start: 05-30-2022 Telephone encounter Anibal Chaparro [facility] Start: 05-27-2022 End: 05-28-[address] DOCTOR VERAS Facility: Start: 04-29-2022 End: 04-29-2022 ambulatory Anibal Chaparro Other [employer] Other Start: 04-29-2022 Office outpatient visit 15 minutes Anibal Chaparro [facility] Start: 04-29-2022 Telephone encounter Anibal Chaparro [facility] Start: 02-11-2022 ambulatory Facility:[id number] Start: 02-11-2022 End: 02-11-2022 Patient encounter procedure Yany Cuellar [facility] Start: 01-07-2022 End: 01-26-2022 Pre-admission assessment Yany Cuellar [facility] Start: 11-20-2021 Adult health examination Anibal Chaudhary Other [employer] Other Start: 11-20-2021 Encounter for genera l adult medical examination without abnormal findings DR DOCTOR VERAS [facility] Start: 11-19-2021 End: 11-20-2021 ambulatory ANIBAL CHAUDHARY Facility:[facility] Start: 11-19-2021 End: 11-20-2021 Encounter for general adult medical examination without abnormal findings DR DOCTOR VERAS Facility:[facility] Start: 07-18-2021 End: 07-19-[address] DOCTOR VERAS Facility:[facility] Start: 07-07-2020 End: 07-07-2020 Patient encounter procedure Anibal Chaudhary Work Phone: [facility] [place] Procedures Date Procedure Procedure Detail Performing Clinician Start: 12-14-2024 Follow-up visit RADHAI SA AD Start: 08-31-2024 Follow-up visit HANI SA AD Start: 08-04-2024 Follow-up visit HANI SA AD Start: 06-29-2024 Follow-up visit HANI SA AD Start: 05-26-2024 Follow-up visit HANI SA AD Start: 05-20-2024 Follow-up visit HANI SA AD Start: 02-05-2024 Follow-up visit HANI SA AD Start: 01-08-2024 Follow-up visit HANI SA AD Start: 07-07-2020 MRI of head Anibal cuba Work Phone: Plan of Treatment Date Care Activity Detail Author Start: 12-21-2024 Patient referral [facility] Work Phone: Start: 12-03-2023 [facility] Start: 11-03-2023 [facility] Start: 07-08-2023 [facility] Start: 12-24-2022 [facility] Start: 12-24-2022 Hospital admission [facility] Start: 12-24-2022 [facility] Start: 12-24-[address] [facility] 25-hydroxyvitamin D2 [Mass/volume] in Serum or Plasma [facility] 25-hydroxyvitamin D3 [Mass/volume] in Serum or Plasma [facility] 25-Hydroxyvitamin D3+25-Hydroxyvitamin D2 [Mass/volume] in Serum or Plasma [facility] Comprehensive metabo lic 2000 panel - Serum or Plasma [facility] Glucose measurement estimated from glycated hemoglobin [facility] MG Breast - bilateral Screening [facility] Patient referral [facility] Work Phone: Renal function 2000 panel - Serum or Plasma [facility] Thyrotropin [Units/v olume] in Serum or Plasma [facility] Thyroxine (T4) free index in Serum or Plasma by calculation [facility] Thyroxine measurement [facility] Triiodothyronine (T3 ) [Mass/volume] in Serum or Plasma [facility] Triiodothyronine res in uptake (T3RU) in Serum or Plasma [facility] US Kidney - [facility] Payers Date Payer Category Payer Medicaid [id number] 2022 Self-pay [id number] 1960 Unknown [id number] 2.16. [id number] 1960 Unknown [id number] 2.16.84 0.1.381734.3.579.2.593 1960 Unknown [id number] 2.16.84 0.1.257078.3.579.2.593 1960 Unknown [id number] 2.16.84 0.1.712091.3.579.2.593 1960 Unknown [id number] 2.16.84 0.1.739358.3.579.2.593 1960 Unknown [id number] 2.16.84 0.1.366375.3.579.2.1259 1960 Unknown [id number] 2.16.84 0.1.360579.3.579.2.1259 1960 Unknown [id number] 2.16.84 0.1.759936.3.579.2.1259 1961 Unknown [id number] 2.16.84 0.1.358862.3.579.2.1259 1961 Unknown [id number] 2.16.8 40.1.442977.3.579.2.727 1960 Unknown [id number] 2.16.8 40.1.209437.3.579.2.727 1959 Unknown [id number] Private Health Insurance [id number] Unknown [id number] Unknown [id number] 2.16.8 40.1.611458.3.579.2.531 Unknown [id number] 2.16.8 40.1.165084.3.579.2.531 Unknown [id number] 2.16.8 40.1.929633.3.579.2.531 Unknown [id number] 2.16.8 40.1.151775.3.579.2.531 Unknown [id number] 2.16.8 40.1.113200.3.579.2.531 Unknown [id number] 2.16.8 40.1.344930.3.579.2.531 Unknown [id number] 2.16.8 40.1.159224.3.579.2.531 Social History Date Type Detail Facility Tobacco smoking stat [facility] Unknown if ever smoked [facility] Start: 1960 Sex Assigned At Female F [facility] Tobacco smoking status No Smokin g Status Entered [facility] Sex Assigned At Female [facility] Start: 12-24-2022 End: 12-24-2022 Tobacco smoking status ILIS Current some day smoker [facility] Start: 12-27-2022 End: 12-27-2022 Tobacco smoking status NHIS Smoker (finding) [facility] Start: 05-28-2024 Sex Female (finding) [facility] Start: 12-21-2024 Tobacco smoking stat us ILIS Smokes tobacco daily (finding) [facility] Start: 12-22-2024 Tobacco smoking stat us ILIS Ex-smoker (finding) [facility] Goals Date Patient Goal Desired Activity /State Functional Status Date Assessment Result Facility 12-24-2022 Functional status Patient at Baseline [facility] Work Phone: Mental Status Date Assessment Result Facility 12-24-2022 Cognitive function Cognitive Sta tus Patient at Baseline [facility] Work Phone: Clinical Notes 04-29-2022 to 12-21-2024 Note Date & Type Note Facility 12-21-2024 Evaluation note Diagnosis Onset Date Resolution Abnormal TSH acute December 212024 11:25am COPD (chronic obstructive pulmonary disease) acute December 21, 2024 11:25am Dyspnea on exertion acute Septe 2024 11:25am Screening mammogram for breast cancer acute December 21, 2024 11:25am CAD (coronary artery disease) acute December 22 3:21pm [facility] Work Phone: 1(277) 913-473109-23-2025 [facility] 05-26-2024 [facility]-05-[address] [facility]2025 [facility] 05-20-2024 [facility]02-21-2025 NoteAttempted to delete note. Left incomplete.[facility]02-20-2025 Note [facility]02-20-[address] [facility]02-19-[address] [facility]02-19-2025 Note [facility]02-19-2025 NoteCase was discussed with the ADEBAYO on 05/11/2024. I agree with the history, physical, assessment, and plan of care. I discussed the findings and therapeutic plan. I agree with the documentation, except for any updates below. Rao Foster MDUnMercy Health St[facility]02-19-2025 Note [facility]02-19-2025 NotePer primary team to consider addition of CPAP/BiPAP nightlyUnMercy Health St[facility]02-19-2025 Note Continue diuresis as above Supplemental O2 at 2-4 L/min via nasal cannula as neededUnMercy Health St. [facility]02-19-2025 NoteContinue with home medication, levothyroxine 50 mcg tablet p.o. dailyUnMercy Health St. [facility]02-19-2025 NoteInsulin lispro per sliding scale before meals and at bedtime. Continue home medication Januvia 100 [address] [facility] Hospital11-14-2024 [facility]10-17-2024 Note [facility]10-08-[address] [facility]10-08-2024 [facility]10-08-2024 Note Occupational Therapy Name: Ruma Carlton Date of : 1960 Today's Date: 12/30/23 Pt is unable to be seen for therapy at this time secondary to Discharging @ 1530. Check No Charge Time attempted: 1325UnMercy Health St[facility]10-08-2024 [facility]Mi[facility]10-08-2024 [facility] 12-29-2023 [facility]10-07-2024 [facility]10-07-2024 [facility] 12-29-2023 [facility]10-07-2024 [facility]10-07-2024 NoteAddendum created 12/29/23 0920 by Mario Bermudez MD Attestation recorded in Intraprocedure (Anesthesia), Intraprocedure Attestations filed (Anesthesia), Intraprocedure Event edited, Intraprocedure Staff edited, Intraprocedure Staff edited (Anesthesia)[facility]10-07-[address] [facility]10-06-2024 Note [facility]10-06-2024 NoteCTS: Patient seen and examined post left pigtail catheter removal I concur with the xray report and do not see any pneumothorax. Lungs CTA bilaterally Dressing dry and intact Satting 98% on room air Updated daughter at bedside.[facility]10-06-2024 Note Sent updates to [facility] They have pre-cert which is good through Friday 12/29. Awaiting medical readiness.[facility]10-06-[address] [facility]10-06-2024 Note [facility]10-05-[address] [facility]10-05-[address] [facility]10-05-2024 Note [facility]10-05-[address] [facility]10-04-[address] [facility]10-04-2024 Note [facility]10-04-2024 NoteUpdates sent to [facility]. Patient still has chest tube in place. Awaiting Pulmonary to see patient today. SW continues to follow.[facility]10-04-[address] [facility]10-04-2024 Note [facility]10-04-[address] [facility]10-03-[address] [facility]10-03-2024 Note [facility]10-03-[address] [facility]10-03-[address] [facility]10-03-2024 Note [facility]10-03-[address] [facility]10-03-[address] [facility]10-02-2024 Note [facility]10-02-2024 NoteMi[facility]10-02-2024 NoteAwaiting precert for RHNWO. Per CT Surgery patient should be medically ready for discharge on 12/24. SW following.[facility] 12-24-2023 NoteA. Satisfactory for evaluation. Examination of the ThinPrep slide and cell block reveals reactive mesothelial cells in a background of marked acute inflammation.[facility] HospitalComment on above:Performed By: #### LAB13 ####[facility] (BEAKER)[address] [place] [address] 12-24-[address] [facility]10-02-2024 NoteMi[facility]10-02-2024 [facility] 12-24-2023 [facility]Mi[facility]10-01-2024 [facility]Mi[facility]10-01-2024 [facility] 12-23-2023 NoteMi[facility]10-01-2024 NoteMi[facility]09-30-2024 [facility] 12-22-2023 [facility]Mi[facility]09-30-2024 NoteMi[facility]09-30-2024 [facility] 12-22-2023 NoteMi[facility]09-30-2024 NoteMi[facility]09-29-2024 [facility] 12-20-2023 NoteMi[facility]09-28-2024 NoteMi[facility]09-28-2024 [facility] 12-19-2023 NoteMi[facility]09-27-2024 NoteMi[facility]09-27-2024 [facility] 12-19-2023 NoteMi[facility]09-27-2024 NoteMi[facility]09-26-2024 [facility] 12-18-[address] [facility]09-26-[address] [facility]09-26-2024 NoteOccupational Therapy Name: Ruma Carlton Date of : 1960 Today's Date: 12/18/23 Pt is unable to be seen for therapy at this time secondary to Pt currently off floor for testing Check No Charge Time attempted: 1407UnMercy Health St. [facility]09-26-2024 NoteMi[facility]09-26-2024 NoteEcho attempted bedside @10:45 am. Patient in chair, called RN but busy, unable to get patient back in bed for test. Will try again later.[facility]09-26-2024 NoteMi[facility]09-26-2024 Note [facility]09-25-[address] [facility]09-25-2024 NoteMi[facility]09-25-2024 Note [facility]09-25-2024 NoteMi[facility]09-24-2024 NoteMi[facility]09-24-2024 Note [facility]09-24-2024 NoteMi[facility]09-23-2024 [facility]Mi[facility]11-21-2023 Evaluation note* Encounter Date Diagnosis Assessment Notes Treatment Notes Treatment Clinical Notes Jan, Acute pain of right hip (ICD-10 - M25.551) [employer] Other 10-06-2023 Evaluation note* Encounter Date Diagnosis [...] monitor results and followup in 3-4 weeks. [employer] [facility] Other 10-04-2023 Evaluation note* Encounter Date Diagnosis Assessment Notes Treatment Notes Treatment Clinical Notes Dec, Depressive disorder (ICD-10 - F32.A) [facility] Other 10-03-2023 History and physical note Author Froilan Brown [facility] December 24, 2022 4:06am Note Date/Time December 24, 2022 3: 58am [facility] [address] [place] [address] Hospitalist H&P Signed Patient: Ruma Carlton MR#: [id number] : 1960 Acct:[id number] Age/Sex: 62 / F Adm Date: 3 Loc: Room: [address] [place] [address] Type: ADM IN Attending Dr: Froilan Brown MD Copies to: MD Anibal Mosquera MD~ HPI DATE OF EXAMINATION: 12/24/22 CHIEF COMPLAINT: fall HISTORY OF PRESENT ILLNESS: The patient is a 62 year old woman with a history of HTN, DVT/PE on xarelto, POTS, NIDDM2, paroxysmal SVT who presented to [facility] after a fall. Per the patient [...] got [facility]- pt reports she felt wobbly after taking the flexeril. shedid not lose consciousness or feel dizzy and denies any chest pain or shortness of breath. Pt's right hip pain worsened over the course of Friday so she went to [facility] for evaluation on arrival there vital [...] feels improved after she got tylenol at [facility]- the patient is somewhat irritated at being [...] were negative except as noted in the [facility] Medical History Apnea Arthritis Back [...] thrombosis): (5) Hyponatremia: Plan: mild (126 at [facility])- ?medication related Plan - admit to medicine - monitor on telemetry - restart home medications - will check STAT troponin now. if it is markedly increased compared to at [facility], would ask cardiology to see pt. if [...] signed by Froilan Brown MD> 12/24/22 0406 [facility] Work Phone: [phone]) 412-882509-29-2023 Evaluation note* Encounter Date Diagnosis Assessment Notes Treatment Notes Treatment Clinical Notes Nov, Depressive disorder (ICD-10 - F32.A) [employer] Other 08-25-2023 Evaluation note* Encounter Date Diagnosis Assessment Notes Treatment Notes Treatment Clinical Notes Oct, Depressive disorder (ICD-10 - F32.A) Mood improved. 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 She hasn't rec'd the midodrine yet, but will start it and followup w [facility] cardio [employer] Other 06-22-2023 Evaluation note* Encounter Date Diagnosis [...] the past (years ago). Requests a refill. [employer] Other 02-06-2023 Evaluation note* Encounter Date Diagnosis [...] ENT eval if area does not resolve. 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 Work Phone: Evaluation noteNo assessment information available [facility] Work Phone: evaludprzh note* Diagnosis Onset Date Resolution Status Anxiety acute Bilateral primary osteoarthritis of knee acute Depression acute Right hip pain acute [facility] Work Phone: Evaluation note* Diagnosis Onset Date Resolution Status Abnormal TSH acute Arthritis, rheumatoid acute Lower extremity edema acute Urinary frequency acute [facility] Work Phone: Evaluation note* Diagnosis Onset Date Resolution Status Abnormal TSH acute Arthritis, rheumatoid acute Lower extremity edema acute Urinary frequency acute Abnormal TSH acute Diabetes mellitus, type 2 ac [place] Hypertension acute [facility] Work Phone: Evaluation note* Diagnosis Onset Date Resolution Status Abnormal TSH acute Arthritis, rheumatoid acute Lower extremity edema acute Urinary frequency acute Abnormal TSH acute Arthritis, rheumatoid acute Diabetes mellitus, type 2 ac [place] Hypertension acute [facility] Work Phone: Evaluation note* Diagnosis Onset Date Resolution Status Abnormal TSH acute Arthritis, rheumatoid acute Diabetes mellitus, type 2 ac [place] Hypertension acute [facility] Work Phone: Evaluation note* Diagnosis Onset Date Resolution Status Admit Date Abnormal TSH acute December 212024 11:25am Screening mammogram for breast cancer acute December 21, 2024 11:25am [facility] Work Phone: History general Narrative - Reported* [...] rele ase 02/2022 Hospitalization History see above [employer] Other Hisjcdo general Narrative - Reported* Type Description Date [...] rele ase 02/2022 Hospitalization History see above [facility] Other Hospital Discharge instructions No data available for this section [facility] No data available for this section [facility] Author Petr Kowalski [facility] December 24, 2022 11:58am Note Date/Time December 24, 2022 11 :58am [facility] [address] [place], [place] [id number] Hospitalist Progress Note Signed Patient: Ruma Carlton MR#: [id number] : 1960 Acct:[id number] Age/Sex: 62 / F Adm Date: 3 Loc: Room: 4H9270-0 Type: ADM INOo Attending Dr: Petr Kowalski MD Copies to: ~ Date of Service: 12/24/2022 Subjective Subjective Narrative: The patient is a 62 year old woman with a history of HTN, DVT/PE on xarelto, POTS, NIDDM2, paroxysmal SVT who presented to [facility] after a fall. Per the patient [...] got [facility] sleeping [facility]- pt reports she felt wobbly after taking the flexeril. shedid not lose consciousness or feel dizzy and denies any chest pain or shortness of breath. Pt's right hip pain worsened over the course of Friday so she went to [facility] for evaluation On arrival there vital [...] feels improved after she got Tylenol at [place]- the patient is somewhat irritated at being [...] to the fall. Her CT head at [facility] was unremarkable for ICH patient remained stable [...] 08:59 50 mg DAILY SANAZ Administration Pyridostigmine Spencer 120 mg 12/24/22 09:00 12/24/22 08:36 Pyridostigmine Spencer 60 Mg Tablet PO 12/24/23 08:59 120 [...] thrombosis): (5) Hyponatremia: Plan: mild (126 at [facility])- ?medication related Plan -Repeat Troponin here WNL. Sodium level WNL -CT head done at [facility] with no evidence of intracranial bleed. Patient remained stable with no focal deficits -X-ray of the hip done at [facility] with no evidence of fracture dislocation -Patient [...] <Electronically signed by Petr Kowalski MD> 12/24/[address] [facility] Work Phone: Reason for referral (narrative)No reason for referral [facility] Work Phone: Summary Purpose Family History Relationship [...] g hand and feet FMLA follow up R79. I10 E11.9 Reason for Visit Abnormal TSH Arthritis, rheumatoid Lower extremity edema Urinary frequency Abnormal TSH Arthritis, rheumatoid Diabetes mellitus, type 2 Hypertension Chief Complaint FMLA follow up R79. I10 E11.9 Reason for Visit Abnormal TSH Arthritis, rheumatoid Diabetes mellitus, type 2 Hypertension Chief Complaint FMLA follow up R7. I10 E11.9 M13.0 R76.0 Z79.899 Q3M R06.09 Reason for Visit Abnormal TSH Arthritis, rheumatoid Diabetes mellitus, type 2 Hypertension Chief Complaint FMLA follow up R7.89 I10 E11.9 M13.0 R76.0 Z79.899 Q3M R06.09 R06.9 Amb Documentation CC Adult Risk Stratification [facility]:CABG-HIGH RISK Reason for Visit Abnormal TSH Arthritis, rheumatoid Diabetes mellitus, type 2 Hypertension Chief Complaint Admit Date Amb Documentation May 17, 2024 1:57pm [facility]; heart failure-HIGH RISK May 28, 2024 11:25am Chief Complaint Admit Date Wellness-HIGH RISK December 21, 2024 11:25am Reason for Visit Admit Date Abnormal TSH December 21, 2024 11:25am Screening mammogram for breast cancer Se ptember 2024 11:25am Chief Complaint Admit Date Wellness-HIGH RISK December 21, 2024 11:25am ckd 3 December 22, 2024 3: 21pm Reason for Visit Admit Date Abnormal TSH December 21, 2024 11:25am COPD (chronic obstructive pulmonary dise ase) December 21, 2024 11:25am Dyspnea on exertion December 21, 2024 11:25am Screening mammogram for breast cancer Se ptember 2024 11:25am CAD (coronary artery disease) December 3:21pm Additional Source Comments INFORMATION SOURCE (unrecogn ized section and content) DATE CREATED AUTHOR 08/29/2018 [facility] DATE CREATED AUTHOR AUTHOR'S ORGANIZ ATION 03/20/2022 [facility] DATE CREATED AUTHOR AUTHOR'S ORGANIZ ATION 05/29/2022 [facility] DATE CREATED AUTHOR AUTHOR'S ORGANIZ ATION 06/05/2023 [facility] DATE CREATED AUTHOR AUTHOR'S ORGANIZ ATION 08/29/2023 [facility] DATE CREATED AUTHOR AUTHOR'S ORGANIZ ATION 12/16/2023 [facility] DATE CREATED AUTHOR AUTHOR'S ORGANIZ ATION 12/14/2024 [facility] Patient Care team informatio n [...] 25, 2023 End: February 25, 2023 Outreach [facility] Attending Provider Active Sta rt: February 25, [...] Team Status: Inactive Member Role Status Dates RAQUEL Elias-C Attending Provider Active S tart: December 02, 2023 End: December 02, 2023 Team Status: Inactive Member Role Status Dates RAQUEL Elias-Isabel Attending Provider Active S tart: December 04, 2023 End: December 04, 2023 Team Status: Inactive Member Role Status Dates RAQUEL Elias-C Attending Provider Active S tart: December 04, [...] Chaudhary MD Primary Care Provider Active Start: October 12, 2024 NIRANJAN Bass Attending Provider Active Start: October 12, 2024 Team Status: Inactive Member Role Status Dates Anibal Chaudhary MD Primary Care Provider Active Start: December 21, 2024 End: December 21, 2024 Anibal Chaudhary MD Attending Provider Active St art: December 21, 2024 End: December 21, 2024 Team Status: Inactive Member Role Status Dates Anibal Chaudhary MD Primary Care Provider Active Start: December 22, 2024 End: December 22, 2024 Ramy Santacruz MD Attending Provider Active Start : December 22, 2024 End: December 22, 2024 REASON FOR VISIT (unrecogniz ed [...] BE BASED ON THE PRIMARY CLINICAL RECORDS. [employer] provides no warranty or guarantee of the accuracy or completeness of information in this document.
[2024-12-29 13:42] LABS: Anion Gap 12.7; Blood Urea Nitrogen 25.0 mg/dL (7.0-18.0); Calcium 9.2 mg/dL (8.5-10.1); Carbon Dioxide 32.1 mmol/L (21.0-32.0); Chloride 102 mmol/L (98-107); Estimated GFR (African America 39 (>=60 mL/min/1.73m^2); Estimated GFR (Non-African Ame 33 (>=60 mL/min/1.73m^2); Glucose 150 mg/dL (74-106); NT Pro B Type Natriuretic Pept 707.0 pg/mL (<=900.0); Potassium 3.8 mmol/L (3.5-5.1); Sodium 143 mmol/L (136-145)
== END 2024-12-29 12:22 | disposition home or self-care (01) ==
PROVIDERS: PCP Family Medicine; Visit Provider Internal Medicine Interventional Cardiology
DX: R60.0 Localized edema (principal); R06.09 Other forms of dyspnea; Z95.1 Presence of aortocoronary bypass graft; E66.9 Obesity, unspecified; Z68.42 Body mass index [BMI] 45.0-49.9, adult; I25.10 Atherosclerotic heart disease of native coronary artery without angina pectoris; E78.2 Mixed hyperlipidemia; R79.89 Other specified abnormal findings of blood chemistry
CPT/HCPCS: 36415; 80048; 83880; 84439; 84443; 93798

== ENCOUNTER 2024-12-29 12:28 | Outpatient (OUT) | payer OTHER, SELFPAY ==
--- OUTSIDE RECORDS SUMMARY | 2024-12-29 12:35 | XMS_ITS | CCD ---
Author Organization [facility] Care Team Providers Care Frame Stylist Name Role Phone Anibal Chaudhary Primary Care Provider Sidra Potter Attending Provider [phone] ANIBAL CHAUDHARY Primary Care Physician Anibal Chaudhary [...] Primary Care Provider NIRANJAN Wagoner Attending Provider [phone] Pocos, Yany Jc Attending Unavailable Pocjefferson, Yany Jc Referring Unavailable ANIBAL CHAUDHARY Unavailable PocYany chang Admitting Unavailable Pocjefferson, Yany Jc Attending Unavailable PocYany chang Referring Unavailable MD ANIBAL CHAUDHARY Consulting Unavailable MD Anibal Chaudhary Primary Care Provider MD Anibal Chaudhary Attending Provider ObNIRANJAN conley [...] e [place] Referring Unavailabl e [place]A [place] [...] Unavailable Anibal Chaudhary MD Primary Care Provider [phone] Darryl Mcleod Attending Provider Anibal Chaudhary MD Attending Provider Ramy Santacruz MD Attending Provider [phone] Allergies Allergy Classification Reported Allergen(s) Allergy Type Date of Onset Reaction(s) Facility Unclassified (1 source) Allergy to substance [facility] (13 sources) Codeine Drug Allergy Unknown [facility]imal Data Other (20 sources) Metoclopramide; Translations: [METOCLOPRAMIDE] Drug Allergy 07-13-19 10 Unknown, [facility] (13 sources) Sulfamethoxazole / Trimethoprim Drug Allergy Unknown [facility] Proximal Data Other (13 sources) Sulfonamides (Antibiotic) Drug allergy rash [facility] Other (14 sources) Codeine; Translations: [CODEINE] Drug Allergy 04-06-[address] [facility] (1 source) Iothalamate Drug Allergy 04-06-[address] [facility] (1 source) Morphine Drug Allergy 04-12-[address] [facility] (1 source) Sulfonamides (Antibiotic) Drug allergy (disorder) 04-06-[address] [facility] (5 sources) Codeine Drug Allergy 02-25-20 14 [facility] Other (16 sources) Sulfonamides (Antibiotic); Translations: [Sulfa (Sulfonamide Antibiotics)] Allergy to substance 03-11-20 14 Hives, Hives, rash [facility] (13 sources) Sulfamethoxazole; Translations: [sulfamethoxazole] Drug Allergy 05-08-19 24 [facility] (13 sources) Trimethoprim; Translations: [trimethoprim] Drug Allergy 05-08-19 [facility] (1 source) Codeine Drug Allergy 10-27-19 [facility] (1 source) Metoclopramide Drug Allergy 10-27-19 [facility] (1 source) Metoclopramide; Translations: [METOCLOPRAMIDE HCL] Drug Allergy 03-11-20 14 [facility] Repository Medications Current Medications Medication Drug Class(es) [...] tablets by mouth four times daily Pyridostigmine [place] 60 mg tablet Active 120 MG PO Four times daily December 24, 2022 12:00am Complies with drug therapy Start: 12-24-2022 End: 12-24-2022 Pyridostigmine [place] 180 m g Tablet Extended Release Discontinued 120 MG PO Daily December 24, 2022 12:00am December 24, 2022 8:13am Start: 12-24-2022 End: 05-08-2023 take 2 tablets by mouth twice daily Pyridostigmine [place] 60 mg Tablet Discontinued 120 MG PO Twice daily 0 December 24, 2022 12:00am May 08, 2023 4:09pm Start: 12-24-2022 take 120 mg by mouth four times daily Pyridostigmine [place] Active 120 MG PO Four times daily December 24, 2022 12:00am Start: 12-24-2022 End: 12-24-2022 take 120 mg by mouth once daily Pyridostigmine [place] Discontinued 120 MG PO Daily December 24, 2022 12:00am December 24, 2022 8:13am Start: 12-24-2022 End: 05-08-2023 take 120 mg by mouth twice daily Pyridostigmine [place] Discontinued 120 MG PO Twice daily 0 December 24, 2022 12:00am May 08, 2023 4:09pm take 1 tablet by veronica th every four hours Pyridostigmine [place] 60 MG 1 tablet Orally every 4 [...] 6 hrs for 30 days Apr, Active [id number] 200 actuat albuterol 0.09 mg/actuat metered dose [...] Start: 09-12-2022 take 1 capsule by mo [facility] every twenty-four hours Temazepam 15 MG [...] Coronary arteriosclerosis; Translations: [Atherosclerotic heart disease of [place] coronary artery without angina pectoris] Onset: 5 [...] hand] Chronic Other aftercare (1 source) Other detention (current) drug therapy; Translations: [OTH CARE HOME CURRENT DRUG THERAPY] Onset: 3 Episodic Other [...] 36on 12-13-2024 36 Pt informed sent to [facility] 36on 12-02-2024 36 Regarding PFT result from 11/26/2024: Al Johnson MD to Me (Selected Message) EE 12/01/24 4:23 PM Please let her know her pulmonary function tests are abnormal and I would recommend she see a sales enablement manager. Thank you [facility] Telephoneon 12-02-2024 Telephone [facility] Orders Onlyon 12-01-2024 Orders Only [facility] 36on 10-18-2024 36 [facility] Cholesterol in LDL Calc [Mas s/Vol]Ordered By: Darryl Pedraza on 10-12-2024 Cholesterol in LDL [Mass/Vol] 60.0 mg/dL [facility] Comment on above: <100 mg/dl [id number] 0-129 mg/dl NEAR OR ABOVE [id number] mg/dl BORDERLINE [id number] mg/dl HIGH>190 mg/dl VERY HIGH Cholesterol in VLDL Calc [Ma ss/Vol]Ordered By: Darryl Pedraza on 10-12-2024 Cholesterol in VLDL [Mass/Vol] 25.4 mg/dL [facility] Globulin Calc (S) [Mass/Vol] Ordered By: Darryl Pedraza on 10-12-2024 Globulin (S) [Mass/Vol] 3.9 g/dL [facility] Glomerular filtration rate ( GFR) estimation in non- AmericanOrdered By: Darryl Pedraza on 10-12-2024 GFR/1.73 sq M.predicted among non-blacks MDRD (S/P/Bld) [Vol rate/Area] 35 mL/min/{1.73_m2} Low >=60 mL/min/1.7 2 [facility] Laboratory - Chemistry and C hemistry - challengeOrdered By: Darryl Pedraza on 10-12-2024 Albumin [Mass/Vol] 3.7 g/dL 3.4-5.0 [facility] ALP [Catalytic activity/Vol] 128 U/L High 46-116 [facility] ALT [Catalytic activity/Vol] 27 U/L 14-59 [facility] AST [Catalytic activity/Vol] 27 U/L 15-37 [facility] Bilirubin [Mass/Vol] 0.5 mg/dL 0.2-1.0 [facility] Calcium [Mass/Vol] 9.2 mg/dL 8.5-10.1 [facility] Chloride [Moles/Vol] 104 mmol/L 98-107 [facility] Cholesterol [Mass/Vol] 148 mg/dL <=200 [facility] Cholesterol in HDL [Mass/Vol] 63 mg/dL High 40-60 [facility] Comment on above: > or =60 mg/dl - LOW CARDIOVASCULAR RISK<40 mg/dl - HIGH CARDIOVASCULAR RISK CO2 [Moles/Vol] 28.7 mmol/L 21.0-32.0 [facility] Creatinine [Mass/Vol] 1.51 mg/dL High 0.55-1.02 [facility] GFR/1.73 sq M.predicted MDRD (S/P/Bld) [Vol rate/Area] 42 mL/min/{1.73_m2} Low >=60 mL/min/1.7 3m 2 [facility] Glucose [Mass/Vol] 172 mg/dL High 74-106 [facility] Potassium [Moles/Vol] 3.6 mmol/L 3.5-5.1 [facility] Protein [Mass/Vol] 7.6 g/dL 6.4-8.2 [facility] Sodium [Moles/Vol] 145 mmol/L 136-145 [facility] Triglyceride [Mass/Vol] 127 mg/dL <=150 [facility] Urea nitrogen [Mass/Vol] 18.0 mg/dL 7.0-18.0 [facility] Urea nitrogen/Creatinine [Mass ratio] 11.9 mg/mg [facility] Serum or plasma albumin/glob ulin mass ratioOrdered By: Darryl Pedraza on 10-12-2024 Albumin/Globulin [Mass ratio] 0.9 {ratio} [facility] Serum or plasma anion gap de terminationOrdered By: Darryl Pedraza on 10-12-2024 Anion gap [Moles/Vol] 15.9 mmol/L [facility] Serum or plasma total choles terol/high density lipoprotein (HDL) cholesterol mass ratOrdered By: Darryl Pedraza on 10-12-2024 Cholesterol.total/Chol esterol in HDL [Mass ratio] 2.3 {ratio} [facility] Comment on above: 3.3 - 4.4 LOW RISK4. 4 - 7.1 AVERAGE RISK7.1 - 11.0 MODERATE RISK>11.0 HIGH RISK ANESon 07-21-2024 ANES Normal [facility] HPon 07-21-2024 HP Normal [facility] NURSNOTEon 07-21-2024 NURSNOTE Patient ambulated to bathroom. Gait steady. Right groin cath site without bleeding or hematoma [facility] NURSBRUNO Wagner assessed patient and site. Told her she could be discharged home at 6:30pm [facility] NURSNOTE Normal [facility] Orders Onlyon 07-13-2024 Orders Only [facility] 36on 07-07-2024 36 Per HAILE [place] P - patient needs scheduled for heart cath with Dr. Johnson s/p abnormal stress test performed on 07/01/2024. Patient made aware. Orders entered. [facility] Orders Onlyon 07-06-2024 Orders Only [facility] 36on 06-24-2024 36 Spoke to patient and advised her that Francie Pedraza would like her to increase her spirolactone to 12.5 and have a BMP done in 1 month. Patient verbalized understanding. [facility] 36on 06-15-2024 36 Darryl Pedraza CNP P Cardiology Clinical Support Pool Her labs show a slight bump in her kidney function. Would like her to go back to spironolactone 12.5mg daily. Follow up BMP in 1 month. Thank you Left message for patient to call back. [facility] 36on 06-09-2024 36 Okay, lets order for a lexiscan stress test please. Please remind her to get follow up BMP since we increased her aldactone. Thank you [facility] 3705-26-2024 37 *We are increasing spironolactone to 25mg daily *Have lab work done around 06/02/2024 to check kidney function with the increase in spironolactone. *We will call you in 1-2 weeks to see how you are feeling. *Follow-up after event monitor comes off. [facility] 37on 05-20-2024 37 [facility] Estimated glomerular filtrat ion rate (GFR) non- Americanon 05-20-2024 GFR/1.73 sq M.predicted among non-blacks MDRD (S/P/Bld) [Vol rate/Area] Estimated glomerular filtration rate (GFR) non- Low >=60 mL/min/1.7 3m 2 [facility] Laboratory - Chemistry and C hemistry - challengeon 05-20-2024 Calcium [Mass/Vol] 9.4 mg/dL 8.5-10.1 [facility] Chloride [Moles/Vol] 102 mmol/L 98-107 [facility] CO2 [Moles/Vol] 30.4 mmol/L 21.0-32.0 [facility] Creatinine [Mass/Vol] 1.12 mg/dL High 0.55-1.02 [facility] GFR/1.73 sq M.predicted MDRD (S/P/Bld) [Vol rate/Area] 60 mL/min/{1.73_m2} >=60 mL/min/1.7 3m 2 [facility] Glucose [Mass/Vol] 158 mg/dL High 74-106 [facility] Potassium [Moles/Vol] 3.8 mmol/L 3.5-5.1 [facility] Sodium [Moles/Vol] 140 mmol/L 136-145 [facility] Urea nitrogen [Mass/Vol] 22.0 mg/dL High 7.0-18.0 [facility] Urea nitrogen/Creatinine [Mass ratio] 19.6 mg/mg [facility] Serum or plasma anion gap de terminationon 05-20-2024 Anion gap [Moles/Vol] Serum or plasma an ion gap determination [facility] Telephoneon 05-18-2024 Telephone Normal [facility] Documentationon 05-17-2024 Documentation Normal [facility] Telephoneon 05-17-2024 Telephone Normal [facility] 36on 05-15-2024 36 Normal [facility] Telephoneon 05-15-2024 Telephone Normal [facility] 30on 05-14-2024 30 Normal [facility] 30 Normal [facility] BASIC METABOLIC PANELon 04-25 Anion gap [Moles/Vol] 14 mmol/L Normal 7-20 [facility] Comment on above: Performed By: #### L [id number] ####[facility] ([facility])[address] [place] [address] Calcium [Mass/Vol] 9.5 mg/dL Normal 8.6-10.3 [facility] Comment on above: Performed By: #### L [id number] ####[facility] ([facility])[address] [place] [address] Chloride [Moles/Vol] 104 mmol/L Normal 98-[address] [facility] Comment on above: Performed By: #### L [id number] ####[facility] ([facility])[address] [place] [address] CO2 [Moles/Vol] 23 mmol/L Normal 21-31 [facility] Comment on above: Performed By: #### L [id number] ####[facility] ([facility])[address] [place] [address] Creatinine [Mass/Vol] 1.04 mg/dL Normal 0.60-1.20 [facility] Comment on above: Performed By: #### L [id number] ####[facility] ([facility])[address] [place] [address] GLOMERULAR FILTRATION RATE ML/MIN/1.73 SQ M.PREDICTED 60.8 mL/min/1.73m*2 Normal >60.0 [facility] Comment on above: Result Comment: The [facility]???s estimated glomerular filtration rate (eGFR) will no [...] of individuals. Performed By: #### L [id number] ####[facility] ([facility])[address] [place] [address] Glucose [Mass/Vol] 128 mg/dL High 70-100 [facility] Comment on above: Performed By: #### L [id number] ####[facility] ([facility])[address] [place] [address] Potassium [Moles/Vol] 4.5 mmol/L Normal 3.5-5.1 [facility] Comment on above: Performed By: #### L [id number] ####[facility] ([facility])[address] [place] [place] [address] Sodium [Moles/Vol] 136 mmol/L Normal 136-145 [facility] Comment on above: Performed By: #### L [id number] ####[facility] ([facility])[address] [place] [address] Urea nitrogen [Mass/Vol] 23 mg/dL Normal 7-25 [facility] Comment on above: Performed By: #### L [id number] ####[facility] ([facility])[address] [place] [address] UREA NITROGEN/CREATININE (MASS RATIO) IN SER/PLAS 22.1 Normal [facility] Comment on above: Performed By: #### L [id number] ####[facility] [place] [address] CBCon 05-14-2024 Erythrocyte distribution width (RBC) [Ratio] 14.3 % Normal 11.5-15.0 [facility] Comment on above: Performed By: #### L [id number] ####[facility] [place] [place] [address] ERYTHROCYTE MEAN CORPUSCULAR HEMOGLOBIN CONCENTRATION (G/DL) BY AUTOMATED 31.9 g/dL Low 32.0-35.0 [facility] Comment on above: Performed By: #### L [id number] ####[facility] ([facility])[address] [place], [place] [address] Hematocrit (Bld) [Volume fraction] 45.8 % Normal 36.0-48.0 [facility] Comment on above: Performed By: #### L [id number] ####[facility] ([facility])[address] [place], [place] [address] Hemoglobin (Bld) [Mass/Vol] 14.6 g/dL Normal 12.0-15.0 [facility] Comment on above: Performed By: #### L [id number] ####[facility] ([facility])[address] [place], [place] [address] MCH (RBC) [Entitic mass] 29.1 pg Normal 27.0-33.0 [facility] Comment on above: Performed By: #### L [id number] ####[facility] ([facility])[address] [place] [place] [address] MCV (RBC) [Entitic vol] 91.4 fL Normal 82.0-98.0 [facility] Comment on above: Performed By: #### L [id number] ####[facility] ([facility])[address] [place] [place] [address] PLATELETS (10*3/UL) IN BLOOD AUTOMATED COUNT 256 10*3/uL Normal 150-400 [facility] Comment on above: Performed By: #### L [id number] ####[facility] ([facility])[address] [place] [place] [address] RBC (Bld) [#/Vol] 5.01 10*6/uL High 3.80-5.00 [facility] Comment on above: Performed By: #### L [id number] ####[facility] ([facility])[address] [place] [place] [address] WBC (Bld) [#/Vol] 6.81 10*3/uL Normal 4.00-10.60 [facility] Comment on above: Performed By: #### L [id number] ####[facility] ([facility])[address] [place] [address] DSon 05-14-2024 DS Normal [facility] POCT GLUCOSE METER UNSOLICIT ED RESULTSon 05-14-2024 Glucose [Mass/Vol] 206 mg/dL High 70-105 [facility] Comment on above: Order Comment: Waive d Testing in the ED is performed under the ED CLIA certificate #[id number]. Result Comment: dcun dic Performed By: #### L [id number] ####[facility] ([facility])[address] [place] [place] [address] Glucose [Mass/Vol] 146 mg/dL High 70-105 [facility] Comment on above: Order Comment: Waive d Testing in the ED is performed under the ED CLIA certificate #[id number]. Result Comment: [email or web address] Performed By: #### L [id number] ####[facility] ([facility])[address] [place] [address] 30on 05-13-2024 30 Normal [facility] 30 Normal [facility] 30 Normal [facility] BASIC METABOLIC PANELon 04-25 Anion gap [Moles/Vol] 13 mmol/L Normal 7-20 [facility] Comment on above: Performed By: #### L [id number] ####[facility] ([facility])[address] [place] [address] Calcium [Mass/Vol] 9.1 mg/dL Normal 8.6-10.3 [facility] Comment on above: Performed By: #### L [id number] ####[facility] ([facility])[address] [place] [address] Chloride [Moles/Vol] 99 mmol/L Normal 98-[address] [facility] Comment on above: Performed By: #### L [id number] ####[facility] ([facility])[address] [place] [address] CO2 [Moles/Vol] 29 mmol/L Normal 21-31 [facility] Comment on above: Performed By: #### L [id number] ####[facility] ([facility])[address] [place] [address] Creatinine [Mass/Vol] 1.29 mg/dL High 0.60-1.20 [facility] Comment on above: Performed By: #### L [id number] ####[facility] ([facility])[address] [place] [place] [address] GLOMERULAR FILTRATION RATE ML/MIN/1.73 SQ M.PREDICTED 46.9 mL/min/1.73m*2 Low >60.0 [facility] Comment on above: Result Comment: The [facility]???s estimated glomerular filtration rate (eGFR) will no [...] of individuals. Performed By: #### L [id number] ####[facility] ([facility])[address] [place] [address] Glucose [Mass/Vol] 135 mg/dL High 70-100 [facility] Comment on above: Performed By: #### L [id number] ####[facility] ([facility])[address] [place] [address] Potassium [Moles/Vol] 3.5 mmol/L Normal 3.5-5.1 [facility] Comment on above: Performed By: #### L [id number] ####[facility] ([facility])[address] [place] [address] Sodium [Moles/Vol] 137 mmol/L Normal 136-145 [facility] Comment on above: Performed By: #### L [id number] ####[facility] ([facility])[address] [place] [address] Urea nitrogen [Mass/Vol] 19 mg/dL Normal 7-25 [facility] Comment on above: Performed By: #### L [id number] ####[facility] ([facility])[address] [place] [address] UREA NITROGEN/CREATININE (MASS RATIO) IN SER/PLAS 14.7 Normal [facility] Comment on above: Performed By: #### L [id number] ####[facility] ([facility])[address] [place] [address] POCT GLUCOSE METER UNSOLICIT ED RESULTSon 05-13-2024 Glucose [Mass/Vol] 161 mg/dL High 70-105 [facility] Comment on above: Order Comment: Waive d Testing in the ED is performed under the ED CLIA certificate #[id number]. Result Comment: wcha se Performed By: #### L [id number] ####[facility] ([facility])[address] [place] [address] Glucose [Mass/Vol] 149 mg/dL High 70-105 [facility] Comment on above: Order Comment: Waive d Testing in the ED is performed under the ED CLIA certificate #[id number]. Result Comment: [email or web address] [email or web address] Performed By: #### L [id number] ####[facility] ([facility])[address] [place] [address] Glucose [Mass/Vol] 183 mg/dL High 70-105 [facility] Comment on above: Order Comment: Waive d Testing in the ED is performed under the ED CLIA certificate #[id number]. Result Comment: [email or web address] [email or web address] Performed By: #### L [id number] ####[facility] ([facility])[address] [place] [address] Glucose [Mass/Vol] 141 mg/dL High 70-105 [facility] Comment on above: Order Comment: Waive d Testing in the ED is performed under the ED CLIA certificate #[id number]. Result Comment: [email or web address] [email or web address] Performed By: #### L [id number] ####[facility] ([facility])[address] [place] [address] 30on 05-12-2024 30 Normal [facility] 30 Normal [facility] 30 Normal [facility] 30 Normal [facility] APTTon 05-12-2024 ACTIVATED PARTIAL THROMBOPLASTIN TIME IN PPP BY COAGULATION ASSAY 49.3 Seconds High 25.0-35.0 [facility] Comment on above: Order Comment: Check aPTT every 6 hours while on heparin infusion, or per protocol. Result Comment: Clin ical significance of the APTT is questionable in the presence of heparin. Performed By: #### L [id number] ####[facility] ([facility])[address] [place] [address] CBCon 05-12-2024 Erythrocyte distribution width (RBC) [Ratio] 13.9 % Normal 11.5-15.0 [facility] Comment on above: Performed By: #### L [id number] ####[facility] [place] [place] [address] ERYTHROCYTE MEAN CORPUSCULAR HEMOGLOBIN CONCENTRATION (G/DL) BY AUTOMATED 32.5 g/dL Normal 32.0-35.0 [facility] Comment on above: Performed By: #### L [id number] ####[facility] ([facility] [place] [place] [address] Hematocrit (Bld) [Volume fraction] 41.8 % Normal 36.0-48.0 [facility] Comment on above: Performed By: #### L [id number] ####[facility] ([facility] [place] [address] Hemoglobin (Bld) [Mass/Vol] 13.6 g/dL Normal 12.0-15.0 [facility] Comment on above: Performed By: #### L [id number] ####[facility] ([facility])[address] [place] [place] [address] MCH (RBC) [Entitic mass] 28.9 pg Normal 27.0-33.0 [facility] Comment on above: Performed By: #### L [id number] ####[facility] ([facility])[address] [place] [place] [address] MCV (RBC) [Entitic vol] 88.9 fL Normal 82.0-98.0 [facility] Comment on above: Performed By: #### L [id number] ####[facility] ([facility])[address] [place] [address] PLATELETS (10*3/UL) IN BLOOD AUTOMATED COUNT 254 10*3/uL Normal 150-400 [facility] Comment on above: Performed By: #### L [id number] ####[facility] ([facility])[address] [place] [address] RBC (Bld) [#/Vol] 4.70 10*6/uL Normal 3.80-5.00 [facility] Comment on above: Performed By: #### L [id number] ####[facility] ([facility])[address] [place] [address] WBC (Bld) [#/Vol] 6.18 10*3/uL Normal 4.00-10.60 [facility] Comment on above: Performed By: #### L [id number] ####[facility] ([facility])[address] [place] [address] CONSULTon 05-12-2024 CONSULT Normal [facility] CONSULT Normal [facility] POCT GLUCOSE METER UNSOLICIT ED RESULTSon 05-12-2024 Glucose [Mass/Vol] 165 mg/dL High 70-105 [facility] Comment on above: Order Comment: Waive d Testing in the ED is performed under the ED CLIA certificate #[id number]. Result Comment: wcha se Performed By: #### L [id number] ####[facility] ([facility])[address] [place] [address] Glucose [Mass/Vol] 183 mg/dL High 70-105 [facility] Comment on above: Order Comment: Waive d Testing in the ED is performed under the ED CLIA certificate #[id number]. Result Comment: [email or web address] Performed By: #### L [id number] ####[facility] ([facility])[address] [place] [address] Glucose [Mass/Vol] 152 mg/dL High 70-105 [facility] Comment on above: Order Comment: Waive d Testing in the ED is performed under the ED CLIA certificate #[id number]. Result Comment: bflo od Performed By: #### L [id number] ####[facility] ([facility])[address] [place] [address] Glucose [Mass/Vol] 189 mg/dL High 70-105 [facility] Comment on above: Order Comment: Waive d Testing in the ED is performed under the ED CLIA certificate #[id number]. Result Comment: bflo od Performed By: #### L [id number] ####[facility] ([facility])[address] [facility] [place] [address] RESPIRATORY VIRUS PCR PANELo n 05-12-2024 ADENOVIRUS DETECTION BY PCR Not detected Normal Not Detected [facility] Comment on above: Order Comment: Testi ng methodology is a multiplexed nucleic acid test intended for the simultaneous qualitative detection and differentiation of nucleic acids from multiple viral and bacterial respiratory organisms in nasopharyngeal swabs (RESEARCH LAB ASSISTANT). Performed By: #### L [id number] ####[facility] ([facility])[address] [facility] [place] [address] B. PARAPERTUSSIS DNA Not detected Normal Not Detected [facility] Comment on above: Order Comment: Testi ng methodology is a multiplexed nucleic acid test intended for the simultaneous qualitative detection and differentiation of nucleic acids from multiple viral and bacterial respiratory organisms in nasopharyngeal swabs (RESEARCH LAB ASSISTANT). Performed By: #### L [id number] ####[facility] ([facility])[address] [facility] [place] [address] BORDETELLA PERTUSSIS DNA PRESENCE IN UNSPECIFIED SPECIMEN BY [place]* Not detected Normal Not Detected [facility] Comment on above: Order Comment: Testi ng methodology is a multiplexed nucleic acid test intended for the simultaneous qualitative detection and differentiation of nucleic acids from multiple viral and bacterial respiratory organisms in nasopharyngeal swabs (RESEARCH LAB ASSISTANT). Performed By: #### L [id number] ####[facility] ([facility])[address] [facility] [place] [address] CHLAMYDOPHILA PNEUMONIAE Not detected Normal Not Detected [facility] Comment on above: Order Comment: Testi ng methodology is a multiplexed nucleic acid test intended for the simultaneous qualitative detection and differentiation of nucleic acids from multiple viral and bacterial respiratory organisms in nasopharyngeal swabs (RESEARCH LAB ASSISTANT). Performed By: #### L [id number] ####[facility] ([facility])[address] [facility] [place] [address] CORONAVIRUS 229E Not detected Normal Not Detected [facility] Comment on above: Order Comment: Testi ng methodology is a multiplexed nucleic acid test intended for the simultaneous qualitative detection and differentiation of nucleic acids from multiple viral and bacterial respiratory organisms in nasopharyngeal swabs (RESEARCH LAB ASSISTANT). Performed By: #### L [id number] ####[facility] ([facility])[address] [place] [address] CORONAVIRUS HKU1 Not detected Normal Not Detected [facility] Comment on above: Order Comment: Testi ng methodology is a multiplexed nucleic acid test intended for the simultaneous qualitative detection and differentiation of nucleic acids from multiple viral and bacterial respiratory organisms in nasopharyngeal swabs (RESEARCH LAB ASSISTANT). Performed By: #### L [id number] ####[facility] ([facility])[address] [place] [address] CORONAVIRUS [id number] Not detected Normal Not Detected [facility] Comment on above: Order Comment: Testi ng methodology is a multiplexed nucleic acid test intended for the simultaneous qualitative detection and differentiation of nucleic acids from multiple viral and bacterial respiratory organisms in nasopharyngeal swabs (RESEARCH LAB ASSISTANT). Performed By: #### L [id number] ####[facility] ([facility])[address] [place] [address] CORONAVIRUS OC43 Not detected Normal Not Detected [facility] Comment on above: Order Comment: Testi ng methodology is a multiplexed nucleic acid test intended for the simultaneous qualitative detection and differentiation of nucleic acids from multiple viral and bacterial respiratory organisms in nasopharyngeal swabs (RESEARCH LAB ASSISTANT). Performed By: #### L [id number] ####[facility] ([facility])[address] [place] [address] HUMAN METAPNEUMOVIRUS Not detected Normal Not Detected [facility] Comment on above: Order Comment: Testi ng methodology is a multiplexed nucleic acid test intended for the simultaneous qualitative detection and differentiation of nucleic acids from multiple viral and bacterial respiratory organisms in nasopharyngeal swabs (RESEARCH LAB ASSISTANT). Performed By: #### L [id number] ####[facility] ([facility])[address] [place] [address] HUMAN RHINOVIRUS+ENTEROVIRUS Not detected Normal Not Detected [facility] Comment on above: Order Comment: Testi ng methodology is a multiplexed nucleic acid test intended for the simultaneous qualitative detection and differentiation of nucleic acids from multiple viral and bacterial respiratory organisms in nasopharyngeal swabs (RESEARCH LAB ASSISTANT). Performed By: #### L [id number] ####[facility] ([facility])[address] [place] [address] INFLUENZA A Not detected Normal Not Detected [facility] Comment on above: Order Comment: Testi ng methodology is a multiplexed nucleic acid test intended for the simultaneous qualitative detection and differentiation of nucleic acids from multiple viral and bacterial respiratory organisms in nasopharyngeal swabs (RESEARCH LAB ASSISTANT). Performed By: #### L [id number] ####[facility] ([facility])[address] [place] [address] INFLUENZA B Not detected Normal Not Detected [facility] Comment on above: Order Comment: Testi ng methodology is a multiplexed nucleic acid test intended for the simultaneous qualitative detection and differentiation of nucleic acids from multiple viral and bacterial respiratory organisms in nasopharyngeal swabs (RESEARCH LAB ASSISTANT). Performed By: #### L [id number] ####[facility] ([facility])[address] [place] [address] MYCOPLASMA PNEUMONIAE Not detected Normal Not Detected [facility] Comment on above: Order Comment: Testi ng methodology is a multiplexed nucleic acid test intended for the simultaneous qualitative detection and differentiation of nucleic acids from multiple viral and bacterial respiratory organisms in nasopharyngeal swabs (RESEARCH LAB ASSISTANT). Performed By: #### L [id number] ####[facility] ([facility])[address] [place] [address] PARAINFLUENZA 1 Not detected Normal Not Detected [facility] Comment on above: Order Comment: Testi ng methodology is a multiplexed nucleic acid test intended for the simultaneous qualitative detection and differentiation of nucleic acids from multiple viral and bacterial respiratory organisms in nasopharyngeal swabs (RESEARCH LAB ASSISTANT). Performed By: #### L [id number] ####[facility] ([facility])[address] [place] [address] PARAINFLUENZA 2 Not detected Normal Not Detected [facility] Comment on above: Order Comment: Testi ng methodology is a multiplexed nucleic acid test intended for the simultaneous qualitative detection and differentiation of nucleic acids from multiple viral and bacterial respiratory organisms in nasopharyngeal swabs (RESEARCH LAB ASSISTANT). Performed By: #### L [id number] ####[facility] ([facility])[address] [place] [address] PARAINFLUENZA 3 Not detected Normal Not Detected [facility] Comment on above: Order Comment: Testi ng methodology is a multiplexed nucleic acid test intended for the simultaneous qualitative detection and differentiation of nucleic acids from multiple viral and bacterial respiratory organisms in nasopharyngeal swabs (RESEARCH LAB ASSISTANT). Performed By: #### L [id number] ####[facility] ([facility])[address] [place] [address] PARAINFLUENZA 4 Not detected Normal Not Detected [facility] Comment on above: Order Comment: Testi ng methodology is a multiplexed nucleic acid test intended for the simultaneous qualitative detection and differentiation of nucleic acids from multiple viral and bacterial respiratory organisms in nasopharyngeal swabs (RESEARCH LAB ASSISTANT). Performed By: #### L [id number] ####[facility] ([facility])[address] [place] [address] RESP SYNCYTIAL VIRUS Not detected Normal Not Detected [facility] Comment on above: Order Comment: Testi ng methodology is a multiplexed nucleic acid test intended for the simultaneous qualitative detection and differentiation of nucleic acids from multiple viral and bacterial respiratory organisms in nasopharyngeal swabs (RESEARCH LAB ASSISTANT). Performed By: #### L [id number] ####[facility] ([facility])[address] [place] [address] SARS-CoV-2 (COVID-19) RNA CITLALY+probe Ql (Unsp spec) Not detected Normal Not Detected [facility] Comment on above: Order Comment: Testi ng methodology is a multiplexed nucleic acid test intended for the simultaneous qualitative detection and differentiation of nucleic acids from multiple viral and bacterial respiratory organisms in nasopharyngeal swabs (RESEARCH LAB ASSISTANT). Performed By: #### L [id number] ####[facility] ([facility])[address] [place] [address] TROPONIN Ion 05-12-2024 Troponin I.cardiac [Mass/Vol] 0.03 ng/mL Normal 0.00-0.04 [facility] Comment on above: Performed By: #### L [id number] ####[facility] ([facility])[address] [place] [address] Troponin I.cardiac [Mass/Vol] 0.04 ng/mL Normal 0.00-0.04 [facility] Comment on above: Performed By: #### L [id number] ####[facility] ([facility])[address] [place] [address] URINALYSIS MICROSCOPIC WITH REFLEX CULTUREon 05-12-2024 RBC (#/HPF) IN URINE SEDIMENT 3-5 Abnormal None Seen, 0-2 [facility] Comment on above: Performed By: #### L [id number] ####[facility] ([facility])[address] [place] [address] SQUAMOUS EPITHELIAL CELLS (#/LPF) IN URINE SEDIMENT Moderate Abnormal None Seen, Occasional , Few [facility] Comment on above: Performed By: #### L [id number] ####[facility] [place] [address] WBC (LEUKOCYTE) (#/HPF) IN URINE SEDIMENT 6-10 Abnormal None Seen, 0-2 [facility] Comment on above: Performed By: #### L [id number] ####[facility] ([facility])[address] [place] [address] URINALYSIS WITH REFLEX CULTU REon 05-12-2024 BILIRUBIN, TOTAL PRESENCE IN URINE Negative Normal Negative [facility] Comment on above: Performed By: #### L [id number] ####[facility] ([facility] [place] [address] Clarity (U) Clear Normal Clear [facility] Comment on above: Performed By: #### L [id number] ####[facility] ([facility])[address] [place] [address] Color (U) Light-Yellow Normal Colorless, Yellow, Light-[place] ow [facility] Comment on above: Performed By: #### L [id number] ####[facility] ([facility])[address] [place] [address] GLUCOSE (MG/DL) IN URINE Normal Normal Normal [facility] Comment on above: Performed By: #### L [id number] ####[facility] ([facility])[address] [place] [address] HEMOGLOBIN PRESENCE IN URINE Negative Normal Negative [facility] Comment on above: Performed By: #### L [id number] ####[facility] ([facility])[address] [place] [place] [address] Ketones Ql (U) Negative Normal Negative [facility] Comment on above: Performed By: #### L [id number] ####[facility] ([facility])[address] [place] [place] [address] LEUKOCYTE ESTERASE PRESENCE IN URINE BY TEST STRIP Small Abnormal Negative [facility] Comment on above: Performed By: #### L [id number] ####[facility] ([facility])[address] [place] [place] [address] NITRITE PRESENCE IN URINE Negative Normal Negative [facility] Comment on above: Performed By: #### L [id number] ####[facility] ([facility])[address] [place] [place] [address] pH (U) 6.0 [pH] Normal 5.0-8.0 [facility] Comment on above: Performed By: #### L [id number] ####[facility] ([facility])[address] [place] [place] [address] Protein (U) [Mass/Vol] Negative Normal Negative [facility] Comment on above: Performed By: #### L [id number] ####[facility] ([facility])[address] [place] [place] [address] Specific gravity (U) [Rel density] 1.015 Normal 1.010-1.03 0 [facility] Comment on above: Performed By: #### L [id number] ####[facility] ([facility])[address] [place] [address] UROBILINOGEN (MG/DL) IN URINE Normal Normal Normal [facility] Comment on above: Performed By: #### L [id number] ####[facility] ([facility])[address] [place] [place] [address] APTTon 05-11-2024 ACTIVATED PARTIAL THROMBOPLASTIN TIME IN PPP BY COAGULATION ASSAY 27.4 Seconds Normal 25.0-35.0 [facility] Comment on above: Order Comment: Basel ine aPTT before initiating heparin infusion. Result Comment: Clin ical significance of the APTT is questionable in the presence of heparin. Performed By: #### L [id number] ####[facility] ([facility])[address] [place] [address] Activated partial thrombopla stin time (aPTT) in platelet poor plasma by coagulation aon 05-11-2024 aPTT Coag (PPP) [Time] Activated partial thromboplastin time (aPTT) in platelet poor plasma by coagulation a 22.3-36.2 [facility] B-TYPE NATRIURETIC PEPTIDEon 05-11-2024 Natriuretic peptide B (Bld) [Mass/Vol] 537 pg/mL High 0-100 [facility] Comment on above: Performed By: #### L [id number] ####[facility] ([facility])[address] [place] [address] Basophils Auto (Bld) [#/Vol] on 05-11-2024 Basophils (Bld) [#/Vol] Automated basophil count 0.0-0.1 [facility] Basophils/100 WBC Auto (Bld) on 05-11-2024 Basophils/100 WBC (Bld) Automated basophil % 0.2-2.0 [facility] CBC WITH AUTO DIFFERENTIALon 05-11-2024 Basophils (Bld) [#/Vol] 0.10 10*3/uL Normal 0.00-0.20 [facility] Comment on above: Performed By: #### L [id number] ####[facility] ([facility])[address] [place] [address] Basophils/100 WBC (Bld) 1.3 % High 0.0-1.0 [facility] Comment on above: Performed By: #### L [id number] ####[facility] ([facility])[address] [place] [address] Eosinophils (Bld) [#/Vol] 0.31 10*3/uL Normal 0.00-0.50 [facility] Comment on above: Performed By: #### L [id number] ####[facility] ([facility])[address] [place] [address] Eosinophils/100 WBC (Bld) 4.0 % Normal 0.0-6.0 [facility] Comment on above: Performed By: #### L [id number] ####[facility] ([facility])[address] [place] [address] Erythrocyte distribution width (RBC) [Ratio] 13.9 % Normal 11.5-15.0 [facility] Comment on above: Performed By: #### L [id number] ####[facility] ([facility])[address] [place] [place] [address] ERYTHROCYTE MEAN CORPUSCULAR HEMOGLOBIN CONCENTRATION (G/DL) BY AUTOMATED 33.7 g/dL Normal 32.0-35.0 [facility] Comment on above: Performed By: #### L [id number] ####[facility] ([facility])[address] [place] [address] Hematocrit (Bld) [Volume fraction] 41.6 % Normal 36.0-48.0 [facility] Comment on above: Performed By: #### L [id number] ####[facility] ([facility])[address] [place] [place] [address] Hemoglobin (Bld) [Mass/Vol] 14.0 g/dL Normal 12.0-15.0 [facility] Comment on above: Performed By: #### L [id number] ####[facility] ([facility] [place] [place] [address] Immature granulocytes (Bld) [#/Vol] 0.03 10*3/uL Normal 0.00-0.20 [facility] Comment on above: Performed By: #### L [id number] ####[facility] ([facility])[address] [place] [place] [address] Immature granulocytes/100 WBC (Bld) 0.4 % Normal 0.0-1.0 [facility] Comment on above: Performed By: #### L [id number] ####[facility] ([facility])[address] [place] [place] [address] Lymphocytes (Bld) [#/Vol] 2.25 10*3/uL Normal 1.20-4.00 [facility] Comment on above: Performed By: #### L [id number] ####[facility] ([facility] [place] [address] Lymphocytes/100 WBC (Bld) 29.3 % Normal 20.0-45.0 [facility] Comment on above: Performed By: #### L [id number] ####[facility] ([facility])[address] [place] [place] [address] MCH (RBC) [Entitic mass] 28.9 pg Normal 27.0-33.0 [facility] Comment on above: Performed By: #### L [id number] ####[facility] ([facility])[address] [place] [place] [address] MCV (RBC) [Entitic vol] 86.0 fL Normal 82.0-98.0 [facility] Comment on above: Performed By: #### L [id number] ####[facility] ([facility])[address] [place] [place] [address] Monocytes (Bld) [#/Vol] 0.50 10*3/uL Normal 0.10-1.00 [facility] Comment on above: Performed By: #### L [id number] ####[facility] ([facility] [place] [place] [address] Monocytes/100 WBC (Bld) 6.5 % Normal 5.0-12.0 [facility] Comment on above: Performed By: #### L [id number] ####[facility] ([facility])[address] [place] [place] [address] Neutrophils (Bld) [#/Vol] 4.50 10*3/uL Normal 1.60-7.60 [facility] Comment on above: Performed By: #### L [id number] ####[facility] ([facility])[address] [place] [place] [address] Neutrophils/100 WBC (Bld) 58.5 % Normal 40.0-72.0 [facility] Comment on above: Performed By: #### L [id number] ####[facility] ([facility])[address] [place] [place] [address] NRBC (PER 100 WBCS) BY AUTOMATED COUNT 0.0 % Normal 0 [facility] Comment on above: Performed By: #### L [id number] ####[facility] ([facility])[address] [place] [place] [address] PLATELETS (10*3/UL) IN BLOOD AUTOMATED COUNT 270 10*3/uL Normal 150-400 [facility] Comment on above: Performed By: #### L [id number] ####[facility] ([facility])[address] [place] [place] [address] RBC (Bld) [#/Vol] 4.84 10*6/uL Normal 3.80-5.00 [facility] Comment on above: Performed By: #### L [id number] ####[facility] ([facility])[address] [place] [place] [address] WBC (Bld) [#/Vol] 7.69 10*3/uL Normal 4.00-10.60 [facility] Comment on above: Performed By: #### L [id number] ####[facility] ([facility])[address] [place] [place] [address] COMPREHENSIVE METABOLIC PANE Kirit 05-11-2024 Albumin [Mass/Vol] 4.1 g/dL Normal 3.5-5.7 [facility] Comment on above: Performed By: #### L [id number] ####[facility] ([facility])[address] [place] [address] ALP [Catalytic activity/Vol] 128 U/L High 34-104 [facility] Comment on above: Performed By: #### L [id number] ####[facility] ([facility])[address] [place] [address] ALT [Catalytic activity/Vol] 13 U/L Normal 7-52 [facility] Comment on above: Performed By: #### L [id number] ####[facility] ([facility])[address] [place] [address] Anion gap [Moles/Vol] 13 mmol/L Normal 7-20 [facility] Comment on above: Performed By: #### L [id number] ####[facility] ([facility])[address] [place] [place] [address] AST [Catalytic activity/Vol] 18 U/L Normal 13-39 [facility] Comment on above: Performed By: #### L [id number] ####[facility] ([facility])[address] [place] [place] [address] Bilirubin [Mass/Vol] 0.4 mg/dL Normal 0.3-1.[address] [facility] Comment on above: Performed By: #### L [id number] ####[facility] ([facility])[address] [place] [place] [address] Calcium [Mass/Vol] 8.9 mg/dL Normal 8.6-10.3 [facility] Comment on above: Performed By: #### L [id number] ####[facility] ([facility])[address] [place] [place] [address] Chloride [Moles/Vol] 98 mmol/L Normal 98-[address] [facility] Comment on above: Performed By: #### L [id number] ####[facility] ([facility])[address] [place] [place] [address] CO2 [Moles/Vol] 27 mmol/L Normal 21-31 [facility] Comment on above: Performed By: #### L [id number] ####[facility] ([facility])[address] [place] [address] Creatinine [Mass/Vol] 0.98 mg/dL Normal 0.60-1.20 [facility] Comment on above: Performed By: #### L [id number] ####[facility] ([facility])[address] [place], [place] [address] GLOMERULAR FILTRATION RATE ML/MIN/1.73 SQ M.PREDICTED 65.3 mL/min/1.73m*2 Normal >60.0 [facility] Comment on above: Result Comment: The [facility]???s estimated glomerular filtration rate (eGFR) will no [...] of individuals. Performed By: #### L [id number] ####[facility] ([facility])[address] [place] [address] Glucose [Mass/Vol] 151 mg/dL High 70-100 [facility] Comment on above: Performed By: #### L [id number] ####[facility] ([facility])[address] [place] [address] Potassium [Moles/Vol] 3.8 mmol/L Normal 3.5-5.1 [facility] Comment on above: Performed By: #### L [id number] ####[facility] (BEAKER)[address] [place] [address] Protein [Mass/Vol] 7.0 g/dL Normal 6.0-8.3 [facility] Comment on above: Performed By: #### L [id number] ####[facility] ([facility]ER)[address] [place] [address] Sodium [Moles/Vol] 134 mmol/L Low 136-145 [facility] Comment on above: Performed By: #### L [id number] ####[facility] ([facility]ER)[address] [place] [address] Urea nitrogen [Mass/Vol] 16 mg/dL Normal 7-25 [facility] Comment on above: Performed By: #### L [id number] ####[facility] ([facility]ER)[address] [place] [address] UREA NITROGEN/CREATININE (MASS RATIO) IN SER/PLAS 16.3 Normal [facility] Comment on above: Performed By: #### L [id number] ####[facility] ([facility]ER)[address] [place] [address] Eosinophils/100 WBC Auto (Bl d)on 05-11-2024 Eosinophils/100 WBC (Bld) Automated eosinophil % 0.9-7.0 [facility] Erythrocyte distribution wid th Auto (RBC) [Ratio]on 05-11-2024 Erythrocyte distribution width (RBC) [Ratio] Erythrocyte distribution width [Ratio] by Automated count 11.0-15.0 [facility] Estimated glomerular filtrat ion rate (GFR) non- Americanon 05-11-2024 GFR/1.73 sq M.predicted among non-blacks MDRD (S/P/Bld) [Vol rate/Area] Estimated glomerular filtration rate (GFR) non- Low >=60 mL/min/1.7 3m 2 [facility] HPon 05-11-2024 [facility] Hematocrit Auto (Bld) [Volum e fraction]on 05-11-2024 Hematocrit (Bld) [Volume fraction] Hematocrit [Volume Fraction] of Blood by Automated count 36.0-48.0 [facility] Hemoglobin [Mass/volume] in Bloodon 05-11-2024 Hemoglobin (Bld) [Mass/Vol] Hemoglobin [Mass/volume] in Blood 12.0-16.0 [facility] INR in Platelet poor plasma by Coagulation assayon 05-11-2024 INR Coag (PPP) [Relative time] INR in Platelet poor plasma by Coagulation assay [facility] Comment on above: DESIRED INR:2.0-3.0 CONDITIONS NOT LISTED BELOW2.5-3.5 FOR PROSTHETIC HEART VALVE REPLACEMENT2.5-3.5 RECURRENT THROMBOSIS Laboratory - Chemistry and C hemistry - challengeon 05-11-2024 Calcium [Mass/Vol] 9.2 mg/dL 8.5-10.1 [facility] Chloride [Moles/Vol] 103 mmol/L 98-107 [facility] CO2 [Moles/Vol] 30.0 mmol/L 21.0-32.0 [facility] Creatinine [Mass/Vol] 1.17 mg/dL High 0.55-1.02 [facility] GFR/1.73 sq M.predicted MDRD (S/P/Bld) [Vol rate/Area] 57 mL/min/{1.73_m2} Low >=60 mL/min/1.7 3m 2 [facility] Glucose [Mass/Vol] 127 mg/dL High 74-106 [facility] Potassium [Moles/Vol] 3.7 mmol/L 3.5-5.1 [facility] Sodium [Moles/Vol] 139 mmol/L 136-145 [facility] Urea nitrogen [Mass/Vol] 15.0 mg/dL 7.0-18.0 [facility] Urea nitrogen/Creatinine [Mass ratio] 12.8 mg/mg [facility] Laboratory - Coagulationon 0 05-11-2024 aPTT Coag (Bld) [Time] 36.6 s Critically low 43.5-61.5 [facility] Comment on above: RESULTS CALLED TO GABBI ESPINOSA RN @BY Ruby Keith at 1902 Laboratory - Hematology and Cell countson 05-11-2024 Immature granulocytes/100 WBC (Bld) 0.3 % 0.0-0.5 [facility] Leukocytes [#/volume] correc chantelle for nucleated erythrocytes in Blood by Automated counon 05-11-2024 WBC corrected for nucl RBC Auto (Bld) [#/Vol] Leukocytes [#/volume] corrected for nucleated erythrocytes in Blood by Automated coun 4.0-11.0 [facility] Lymphocytes Auto (Bld) [#/Vo l]on 05-11-2024 Lymphocytes (Bld) [#/Vol] Lymphocytes [#/volume] in Blood by Automated count 1.2-3.8 [facility] Lymphocytes/100 WBC Auto (Bl d)on 05-11-2024 Lymphocytes/100 WBC (Bld) Lymphocytes/100 leukocytes in Blood by Automated count 20.5-60.0 [facility] MAGNESIUMon 05-11-2024 Magnesium [Mass/Vol] 2.2 mg/dL Normal 1.9-2.[address] [facility] Comment on above: Performed By: #### L [id number] ####[facility] ([facility]ER)[address] [place] [address] MCH Auto (RBC) [Entitic mass ]on 05-11-2024 MCH (RBC) [Entitic mass] MCH [Entitic mass] by Automated count 26.7-34.0 [facility] MCHC Auto (RBC) [Mass/Vol]on 05-11-2024 MCHC (RBC) [Mass/Vol] MCHC [Mass/volume] by Automated count 29.9-35.2 [facility] MCV Auto (RBC) [Entitic vol] on 05-11-2024 MCV (RBC) [Entitic vol] MCV [Entitic volume] by Automated count 81.0-99.0 [facility] Monocytes Auto (Bld) [#/Vol] on 05-11-2024 Monocytes (Bld) [#/Vol] Automated blood monocyte count 0.3-0.8 [facility] Monocytes/100 WBC Auto (Bld) on 05-11-2024 Monocytes/100 WBC (Bld) Automated monocyte % 1.7-12.0 [facility] Neutrophils Auto (Bld) [#/Vo l]on 05-11-2024 Neutrophils (Bld) [#/Vol] Neutrophils [#/volume] in Blood by Automated count 1.4-6.5 [facility] Neutrophils/100 WBC Auto (Bl d)on 05-11-2024 Neutrophils/100 WBC (Bld) Automated neutrophil % 43.0-75.0 [facility] No Panel Informationon 05-11 Troponin I High Sensitivity 1036.8 pg/mL Critically high 4.0-51.3 [facility] Comment on above: RESULTS CALLED TO [...] Eosinophils # (Auto) 0.4 10 3/uL 0.0-0.7 [facility] Immature Granulocyte # (Auto) 0.02 10 3/uL 0.00-0.03 [facility] PHOSPHORUSon 05-11-2024 Magnesium [Mass/Vol] 3.1 mg/dL Normal 2.5-5.[address] [facility] Comment on above: Performed By: #### L [id number] ####[facility] ([facility]AKER)[address] [place] [address] POCT GLUCOSE METER UNSOLICIT ED RESULTSon 05-11-2024 Glucose [Mass/Vol] 163 mg/dL High 70-105 [facility] Comment on above: Order Comment: Waive d Testing in the ED is performed under the ED CLIA certificate #[id number]. Result Comment: mlad d3 Performed By: #### L [id number] ####[facility] (BEAKER)[address] [place] [address] PROTIME-INRon 05-11-2024 INR IN PPP BY COAGULATION ASSAY 0.99 Normal 0.90-1.10 [facility] Comment on above: Result Comment: ACCC P [...] CHEST 1995;[id number]. Performed By: #### L [id number] ####[facility] (BEAKER)[address] [place] [address] PROTHROMBIN TIME (PT) IN PPP BY COAGULATION ASSAY 13.1 Seconds Normal 12.3-14.8 [facility] Comment on above: Performed By: #### L [id number] ####[facility] (BEAKER)[address] [place] [address] Platelet mean volume Auto (B ld) [Entitic vol]on 05-11-2024 Platelet mean volume (Bld) [Entitic vol] Platelet mean volume [Entitic volume] in Blood by Automated count 9.5-13.5 [facility] Platelets Auto (Bld) [#/Vol] on 05-11-2024 Platelets (Bld) [#/Vol] Platelets [#/volume] in Blood by Automated count 150-450 [facility] Prothrombin time (PT)on 04-24 PT Coag (PPP) [Time] Prothrombin time (PT) 9.0- 11.6 [facility] RBC Auto (Bld) [#/Vol]on RBC (Bld) [#/Vol] Erythrocytes [#/volu me] in Blood by Automated count 4.20-5.40 [facility] Serum or plasma anion gap de terminationon 05-11-2024 Anion gap [Moles/Vol] Serum or plasma an ion gap determination [facility] TROPONIN Ion 05-11-2024 Troponin I.cardiac [Mass/Vol] 0.06 ng/mL High 0.00-0.04 [facility] Comment on above: Performed By: #### L [id number] ####[facility] (BEAKER)[address] [place] [address] Basophils Auto (Bld) [#/Vol] on 05-10-2024 Basophils (Bld) [#/Vol] Automated basophil count 0.0-0.1 [facility] Basophils/100 WBC Auto (Bld) on 05-10-2024 Basophils/100 WBC (Bld) Automated basophil % 0.2-2.0 [facility] Eosinophils/100 WBC Auto (Bl d)on 05-10-2024 Eosinophils/100 WBC (Bld) Automated eosinophil % 0.9-7.0 [facility] Erythrocyte distribution wid th Auto (RBC) [Ratio]on 05-10-2024 Erythrocyte distribution width (RBC) [Ratio] Erythrocyte distribution width [Ratio] by Automated count 11.0-15.0 [facility] Estimated glomerular filtrat ion rate (GFR) non- Americanon 05-10-2024 GFR/1.73 sq M.predicted among non-blacks MDRD (S/P/Bld) [Vol rate/Area] Estimated glomerular filtration rate (GFR) non- Low >=60 mL/min/1.7 3m 2 [facility] Globulin Calc (S) [Mass/Vol] on 05-10-2024 Globulin (S) [Mass/Vol] Serum globulin measurement by calculation (mass/volume) [facility] Hematocrit Auto (Bld) [Volum e fraction]on 05-10-2024 Hematocrit (Bld) [Volume fraction] Hematocrit [Volume Fraction] of Blood by Automated count 36.0-48.0 [facility] Hemoglobin [Mass/volume] in Bloodon 05-10-2024 Hemoglobin (Bld) [Mass/Vol] Hemoglobin [Mass/volume] in Blood 12.0-16.0 [facility] Laboratory - Chemistry and C hemistry - challengeon 05-10-2024 Albumin [Mass/Vol] 3.5 g/dL 3.4-5.0 [facility] ALP [Catalytic activity/Vol] 144 U/L High 46-116 [facility] ALT [Catalytic activity/Vol] 21 U/L 14-59 [facility] AST [Catalytic activity/Vol] 22 U/L 15-37 [facility] Bilirubin [Mass/Vol] 0.5 mg/dL 0.2-1.0 [facility] Calcium [Mass/Vol] 9.3 mg/dL 8.5-10.1 [facility] Chloride [Moles/Vol] 102 mmol/L 98-107 [facility] CO2 [Moles/Vol] 29.0 mmol/L 21.0-32.0 [facility] Creatinine [Mass/Vol] 1.17 mg/dL High 0.55-1.02 [facility] GFR/1.73 sq M.predicted MDRD (S/P/Bld) [Vol rate/Area] 57 mL/min/{1.73_m2} Low >=60 mL/min/1.7 3m 2 [facility] Glucose [Mass/Vol] 142 mg/dL High 74-106 [facility] Natriuretic peptide B (Bld) [Mass/Vol] 1140.0 pg/mL High <=900.0 [facility] Potassium [Moles/Vol] 4.4 mmol/L 3.5-5.1 [facility] Protein [Mass/Vol] 7.4 g/dL 6.4-8.2 [facility] Sodium [Moles/Vol] 138 mmol/L 136-145 [facility] Urea nitrogen [Mass/Vol] 14.0 mg/dL 7.0-18.0 [facility] Urea nitrogen/Creatinine [Mass ratio] 12.0 mg/mg [facility] Laboratory - Hematology and Cell countson 05-10-2024 Immature granulocytes/100 WBC (Bld) 0.4 % 0.0-0.5 [facility] Leukocytes [#/volume] correc chantelle for nucleated erythrocytes in Blood by Automated counon 05-10-2024 WBC corrected for nucl RBC Auto (Bld) [#/Vol] Leukocytes [#/volume] corrected for nucleated erythrocytes in Blood by Automated coun 4.0-11.0 [facility] Lymphocytes Auto (Bld) [#/Vo l]on 05-10-2024 Lymphocytes (Bld) [#/Vol] Lymphocytes [#/volume] in Blood by Automated count 1.2-3.8 [facility] Lymphocytes/100 WBC Auto (Bl d)on 05-10-2024 Lymphocytes/100 WBC (Bld) Lymphocytes/100 leukocytes in Blood by Automated count Low 20.5-60.0 [facility] MCH Auto (RBC) [Entitic mass ]on 05-10-2024 MCH (RBC) [Entitic mass] MCH [Entitic mass] by Automated count 26.7-34.0 [facility] MCHC Auto (RBC) [Mass/Vol]on 05-10-2024 MCHC (RBC) [Mass/Vol] MCHC [Mass/volume] by Automated count 29.9-35.2 [facility] MCV Auto (RBC) [Entitic vol] on 05-10-2024 MCV (RBC) [Entitic vol] MCV [Entitic volume] by Automated count 81.0-99.0 [facility] Monocytes Auto (Bld) [#/Vol] on 05-10-2024 Monocytes (Bld) [#/Vol] Automated blood monocyte count 0.3-0.8 [facility] Monocytes/100 WBC Auto (Bld) on 05-10-2024 Monocytes/100 WBC (Bld) Automated monocyte % 1.7-12.0 [facility] Neutrophils Auto (Bld) [#/Vo l]on 05-10-2024 Neutrophils (Bld) [#/Vol] Neutrophils [#/volume] in Blood by Automated count 1.4-6.5 [facility] Neutrophils/100 WBC Auto (Bl d)on 05-10-2024 Neutrophils/100 WBC (Bld) Automated neutrophil % 43.0-75.0 [facility] No Panel Informationon 05-10 Troponin I High Sensitivity 641.2 pg/mL Critically high 4.0-51.3 [facility] Comment on above: RESULTS CALLED TO GABBI KENDRICK RN @BY Rbuy Gee 2105CUT-OFF POINTS HAVE BEEN ESTABLISHED BASED [...] Eosinophils # (Auto) 0.4 10 3/uL 0.0-0.7 [facility] Immature Granulocyte # (Auto) 0.03 10 3/uL 0.00-0.03 [facility] Platelet mean volume Auto (B ld) [Entitic vol]on 05-10-2024 Platelet mean volume (Bld) [Entitic vol] Platelet mean volume [Entitic volume] in Blood by Automated count 9.5-13.5 [facility] Platelets Auto (Bld) [#/Vol] on 05-10-2024 Platelets (Bld) [#/Vol] Platelets [#/volume] in Blood by Automated count 150-450 [facility] RBC Auto (Bld) [#/Vol]on RBC (Bld) [#/Vol] Erythrocytes [#/volu me] in Blood by Automated count 4.20-5.40 [facility] Serum or plasma albumin/glob ulin mass ratioon 05-10-2024 Albumin/Globulin [Mass ratio] Serum or plasma albumin/globulin mass ratio [facility] Serum or plasma anion gap de terminationon 05-10-2024 Anion gap [Moles/Vol] Serum or plasma an ion gap determination [facility] 29on 02-19-2024 29 Addendum created 42 by Mario Bermudez MD Delete clinical note Normal [facility] 29 Addendum created 41 by Mario Bermudez MD Delete clinical note Normal [facility] 29on 01-22-2024 29 Addended by: PALMIRA CAUSEY on: 01/22/2024 02:27 PM Modules accepted: Orders Normal [facility] Orders Onlyon 01-22-2024 Orders Only Normal [facility] BASIC METABOLIC PANELon 10-2 Anion gap [Moles/Vol] 10 mmol/L Normal 7-20 [facility] Comment on above: Performed By: #### L [id number] ####[facility] (BEAKER)[address] [place] [address] Calcium [Mass/Vol] 8.6 mg/dL Normal 8.6-10.3 [facility] Comment on above: Performed By: #### L [id number] ####[facility] (BEAKER)[address] [place] [address] Chloride [Moles/Vol] 104 mmol/L Normal 98-[address] [facility] Comment on above: Performed By: #### L [id number] ####[facility] [place] [place] [address] CO2 [Moles/Vol] 29 mmol/L Normal 21-31 [facility] Comment on above: Performed By: #### L [id number] ####[facility] ([facility])[address] [place] [place] [address] Creatinine [Mass/Vol] 0.91 mg/dL Normal 0.60-1.20 [facility] Comment on above: Performed By: #### L [id number] ####[facility] ([facility])[address] [place] [address] GLOMERULAR FILTRATION RATE ML/MIN/1.73 SQ M.PREDICTED 71.3 mL/min/1.73m*2 Normal >60.0 [facility] Comment on above: Result Comment: The [facility]???s estimated glomerular filtration rate (eGFR) will no [...] of individuals. Performed By: #### L [id number] ####[facility] ([facility])[address] [place] [place] [address] Glucose [Mass/Vol] 150 mg/dL High 70-100 [facility] Comment on above: Performed By: #### L [id number] ####[facility] [place] [place] [address] Potassium [Moles/Vol] 4.1 mmol/L Normal 3.5-5.1 [facility] Comment on above: Performed By: #### L [id number] ####[facility] ([facility] [place] [address] Sodium [Moles/Vol] 139 mmol/L Normal 136-145 [facility] Comment on above: Performed By: #### L [id number] ####[facility] [place] [place] [address] Urea nitrogen [Mass/Vol] 25 mg/dL Normal 7-25 [facility] Comment on above: Performed By: #### L [id number] ####[facility] ([facility])[address] [place] [address] UREA NITROGEN/CREATININE (MASS RATIO) IN SER/PLAS 27.5 Normal [facility] Comment on above: Performed By: #### L [id number] ####[facility] ([facility])[address] [place] [place] [address] CBCon 01-12-2024 Erythrocyte distribution width (RBC) [Ratio] 15.6 % High 11.5-15.0 [facility] Comment on above: Performed By: #### L [id number] ####[facility] ([facility])[address] [place] [address] ERYTHROCYTE MEAN CORPUSCULAR HEMOGLOBIN CONCENTRATION (G/DL) BY AUTOMATED 31.9 g/dL Low 32.0-35.0 [facility] Comment on above: Performed By: #### L [id number] ####[facility] ([facility])[address] [place] [address] Hematocrit (Bld) [Volume fraction] 32.3 % Low 36.0-48.0 [facility] Comment on above: Performed By: #### L [id number] ####[facility] [place] [address] Hemoglobin (Bld) [Mass/Vol] 10.3 g/dL Low 12.0-15.0 [facility] Comment on above: Performed By: #### L [id number] ####[facility] [place] [address] MCH (RBC) [Entitic mass] 31.7 pg Normal 27.0-33.0 [facility] Comment on above: Performed By: #### L [id number] ####[facility] (BEAKER)[address] [place] [address] MCV (RBC) [Entitic vol] 99.4 fL High 82.0-98.0 [facility] Comment on above: Performed By: #### L [id number] ####[facility] [place] [address] PLATELETS (10*3/UL) IN BLOOD AUTOMATED COUNT 263 10*3/uL Normal 150-400 [facility] Comment on above: Performed By: #### L [id number] ####[facility] ([facility] [place] [place] [address] RBC (Bld) [#/Vol] 3.25 10*6/uL Low 3.80-5.00 [facility] Comment on above: Performed By: #### L [id number] ####[facility] ([facility])[address] [place] [place] [address] WBC (Bld) [#/Vol] 5.96 10*3/uL Normal 4.00-10.60 [facility] Comment on above: Performed By: #### L [id number] ####[facility] ([facility])[address] [place] [address] 37on 01-08-2024 37 Normal [facility] 36on 01-07-2024 36 Called patient to re mind her to have chest xray completed prior to her appointment tomorrow. Normal [facility] BASIC METABOLIC PANELon 12-22 Anion gap [Moles/Vol] 8 mmol/L Normal 7-20 [facility] Comment on above: Performed By: #### L [id number] ####[facility] [place] [address] Calcium [Mass/Vol] 8.4 mg/dL Low 8.6-10.3 [facility] Comment on above: Performed By: #### L [id number] ####[facility] ([facility] [place] [place] [address] Chloride [Moles/Vol] 108 mmol/L High 98-[address] [facility] Comment on above: Performed By: #### L [id number] ####[facility] ([facility])[address] [place] [address] CO2 [Moles/Vol] 27 mmol/L Normal 21-31 [facility] Comment on above: Performed By: #### L [id number] ####[facility] ([facility])[address] [place] [address] Creatinine [Mass/Vol] 0.81 mg/dL Normal 0.60-1.20 [facility] Comment on above: Performed By: #### L [id number] ####[facility] ([facility])[address] [place] [address] GLOMERULAR FILTRATION RATE ML/MIN/1.73 SQ M.PREDICTED 82.0 mL/min/1.73m*2 Normal >60.0 [facility] Comment on above: Result Comment: The [facility]???s estimated glomerular filtration rate (eGFR) will no [...] of individuals. Performed By: #### L [id number] ####[facility] ([facility])[address] [place] [place] [address] Glucose [Mass/Vol] 106 mg/dL High 70-100 [facility] Comment on above: Performed By: #### L [id number] ####[facility] ([facility])[address] [place] [place] [address] Potassium [Moles/Vol] 4.1 mmol/L Normal 3.5-5.1 [facility] Comment on above: Performed By: #### L [id number] ####[facility] (BEAKER)[address] [place] [place] [address] Sodium [Moles/Vol] 139 mmol/L Normal 136-145 [facility] Comment on above: Performed By: #### L [id number] ####[facility] (BEAKER)[address] [place] [address] Urea nitrogen [Mass/Vol] 18 mg/dL Normal 7-25 [facility] Comment on above: Performed By: #### L [id number] ####[facility] (BEAKER)[address] [place] [place] [address] UREA NITROGEN/CREATININE (MASS RATIO) IN SER/PLAS 22.2 Normal [facility] Comment on above: Performed By: #### L [id number] ####[facility] (BEAKER)[address] [place] [place] [address] CBCon 01-05-2024 Erythrocyte distribution width (RBC) [Ratio] 17.1 % High 11.5-15.0 [facility] Comment on above: Performed By: #### L [id number] ####[facility] (BE[facility]ER)[address] [place] [place] [address] ERYTHROCYTE MEAN CORPUSCULAR HEMOGLOBIN CONCENTRATION (G/DL) BY AUTOMATED 31.0 g/dL Low 32.0-35.0 [facility] Comment on above: Performed By: #### L [id number] ####[facility] (BE[facility]ER)[address] [place] [place] [address] Hematocrit (Bld) [Volume fraction] 32.6 % Low 36.0-48.0 [facility] Comment on above: Performed By: #### L [id number] ####[facility] (BE[facility]ER)[address] [place] [place] [address] Hemoglobin (Bld) [Mass/Vol] 10.1 g/dL Low 12.0-15.0 [facility] Comment on above: Performed By: #### L [id number] ####[facility] (BEAKER)[address] [place] [place] [address] MCH (RBC) [Entitic mass] 32.1 pg Normal 27.0-33.0 [facility] Comment on above: Performed By: #### L [id number] ####[facility] ([facility])[address] [address] MCV (RBC) [Entitic vol] 103.5 fL High 82.0-98.0 [facility] Comment on above: Performed By: #### L [id number] ####[facility] ([facility])[address] [place] [address] PLATELETS (10*3/UL) IN BLOOD AUTOMATED COUNT 371 10*3/uL Normal 150-400 [facility] Comment on above: Performed By: #### L [id number] ####[facility] ([facility])[address] [place] [address] RBC (Bld) [#/Vol] 3.15 10*6/uL Low 3.80-5.00 [facility] Comment on above: Performed By: #### L [id number] ####[facility] ([facility])[address] [place] [address] WBC (Bld) [#/Vol] 6.99 10*3/uL Normal 4.00-10.60 [facility] Comment on above: Performed By: #### L [id number] ####[facility] ([facility])[address] [place] [place] [id number] CBC WITH AUTO DIFFERENTIALon 12-31-2023 Basophils (Bld) [#/Vol] 0.07 10*3/uL Normal 0.00-0.20 [facility] Comment on above: Performed By: #### L [id number] ####[facility] ([facility])[address] [place] [place] [id number] Basophils/100 WBC (Bld) 1.1 % High 0.0-1.0 [facility] Comment on above: Performed By: #### L [id number] ####[facility] ([facility] [place] [place] [address] Eosinophils (Bld) [#/Vol] 0.39 10*3/uL Normal 0.00-0.50 [facility] Comment on above: Performed By: #### L [id number] ####[facility] (BEAKER)[address] [place] [place] [address] Eosinophils/100 WBC (Bld) 6.3 % High 0.0-6.0 [facility] Comment on above: Performed By: #### L [id number] ####[facility] (BEAKER)[address] [place] [address] Erythrocyte distribution width (RBC) [Ratio] 17.5 % High 11.5-15.0 [facility] Comment on above: Performed By: #### L [id number] ####[facility] (BEAKER)[address] [place] [place] [address] ERYTHROCYTE MEAN CORPUSCULAR HEMOGLOBIN CONCENTRATION (G/DL) BY AUTOMATED 30.6 g/dL Low 32.0-35.0 [facility] Comment on above: Performed By: #### L [id number] ####[facility] (BEAKER)[address] [place] [address] Hematocrit (Bld) [Volume fraction] 28.4 % Low 36.0-48.0 [facility] Comment on above: Performed By: #### L [id number] ####[facility] (BEAKER)[address] [place] [address] Hemoglobin (Bld) [Mass/Vol] 8.7 g/dL Low 12.0-15.0 [facility] Comment on above: Performed By: #### L [id number] ####[facility] (BE[facility]ER)[address] [place] [address] Immature granulocytes (Bld) [#/Vol] 0.04 10*3/uL Normal 0.00-0.20 [facility] Comment on above: Performed By: #### L [id number] ####[facility] (BE[facility]ER)[address] [place] [address] Immature granulocytes/100 WBC (Bld) 0.6 % Normal 0.0-1.0 [facility] Comment on above: Performed By: #### L [id number] ####[facility] ([facility])[address] [place] [address] Lymphocytes (Bld) [#/Vol] 1.24 10*3/uL Normal 1.20-4.00 [facility] Comment on above: Performed By: #### L [id number] ####[facility] ([facility])[address] [place] [address] Lymphocytes/100 WBC (Bld) 20.0 % Normal 20.0-45.0 [facility] Comment on above: Performed By: #### L [id number] ####[facility] ([facility])[address] [place] [address] MCH (RBC) [Entitic mass] 31.8 pg Normal 27.0-33.0 [facility] Comment on above: Performed By: #### L [id number] ####[facility] ([facility])[address] [place] [place] [address] MCV (RBC) [Entitic vol] 103.6 fL High 82.0-98.0 [facility] Comment on above: Performed By: #### L [id number] ####[facility] ([facility])[address] [place] [place] [address] Monocytes (Bld) [#/Vol] 0.35 10*3/uL Normal 0.10-1.00 [facility] Comment on above: Performed By: #### L [id number] ####[facility] ([facility])[address] [place] [place] [address] Monocytes/100 WBC (Bld) 5.6 % Normal 5.0-12.0 [facility] Comment on above: Performed By: #### L [id number] ####[facility] ([facility] [place] [place] [address] Neutrophils (Bld) [#/Vol] 4.12 10*3/uL Normal 1.60-7.60 [facility] Comment on above: Performed By: #### L [id number] ####[facility] ([facility] [place] [place] [address] Neutrophils/100 WBC (Bld) 66.4 % Normal 40.0-72.0 [facility] Comment on above: Performed By: #### L [id number] ####[facility] ([facility] [place] [place] [address] NRBC (PER 100 WBCS) BY AUTOMATED COUNT 0.0 % Normal 0 [facility] Comment on above: Performed By: #### L [id number] ####[facility] ([facility])[address] [place] [address] PLATELETS (10*3/UL) IN BLOOD AUTOMATED COUNT 405 10*3/uL High 150-400 [facility] Comment on above: Performed By: #### L [id number] ####[facility] ([facility])[address] [place] [place] [address] RBC (Bld) [#/Vol] 2.74 10*6/uL Low 3.80-5.00 [facility] Comment on above: Performed By: #### L [id number] ####[facility] ([facility])[address] [place] [place] [address] WBC (Bld) [#/Vol] 6.21 10*3/uL Normal 4.00-10.60 [facility] Comment on above: Performed By: #### L [id number] ####[facility] ([facility])[address] [place] [place] [address] COMPREHENSIVE METABOLIC PANE Kirit 12-31-2023 Albumin [Mass/Vol] 3.2 g/dL Low 3.5-5.7 [facility] Comment on above: Performed By: #### L [id number] ####[facility] (BEAKER)[address] [place] [place] [address] ALP [Catalytic activity/Vol] 115 U/L High 34-104 [facility] Comment on above: Performed By: #### L [id number] ####[facility] (BEAKER)[address] [place] [address] ALT [Catalytic activity/Vol] 11 U/L Normal 7-52 [facility] Comment on above: Performed By: #### L [id number] ####[facility] (BEAKER)[address] [place] [address] Anion gap [Moles/Vol] 9 mmol/L Normal 7-20 [facility] Comment on above: Performed By: #### L [id number] ####[facility] ([facility] [place] [address] AST [Catalytic activity/Vol] 19 U/L Normal 13-39 [facility] Comment on above: Performed By: #### L [id number] ####[facility] ([facility] [place] [address] Bilirubin [Mass/Vol] 0.3 mg/dL Normal 0.3-1.[address] [facility] Comment on above: Performed By: #### L [id number] ####[facility] ([facility] [place] [address] Calcium [Mass/Vol] 8.5 mg/dL Low 8.6-10.3 [facility] Comment on above: Performed By: #### L [id number] ####[facility] ([facility] [place] [address] Chloride [Moles/Vol] 104 mmol/L Normal 98-[address] [facility] Comment on above: Performed By: #### L [id number] ####[facility] (BEAKER)[address] [place] [address] CO2 [Moles/Vol] 28 mmol/L Normal 21-31 [facility] Comment on above: Performed By: #### L [id number] ####[facility] (BEAKER)[address] [place] [address] Creatinine [Mass/Vol] 0.66 mg/dL Normal 0.60-1.20 [facility] Comment on above: Performed By: #### L [id number] ####[facility] ([facility])[address] [place] [place] [address] GLOMERULAR FILTRATION RATE ML/MIN/1.73 SQ M.PREDICTED 99.1 mL/min/1.73m*2 Normal >60.0 [facility] Comment on above: Result Comment: The [facility]???s estimated glomerular filtration rate (eGFR) will no [...] of individuals. Performed By: #### L [id number] ####[facility] ([facility])[address] [place] [place] [address] Glucose [Mass/Vol] 112 mg/dL High 70-100 [facility] Comment on above: Performed By: #### L [id number] ####[facility] ([facility])[address] [place] [address] Potassium [Moles/Vol] 4.3 mmol/L Normal 3.5-5.1 [facility] Comment on above: Performed By: #### L [id number] ####[facility] ([facility])[address] [place] [address] Protein [Mass/Vol] 5.7 g/dL Low 6.0-8.3 [facility] Comment on above: Performed By: #### L [id number] ####[facility] ([facility])[address] [place] [address] Sodium [Moles/Vol] 137 mmol/L Normal 136-145 [facility] Comment on above: Performed By: #### L [id number] ####[facility] ([facility])[address] [place] [address] Urea nitrogen [Mass/Vol] 17 mg/dL Normal 7- [facility] Comment on above: Performed By: #### L [id number] ####[facility] ([facility])[address] [place] [address] UREA NITROGEN/CREATININE (MASS RATIO) IN SER/PLAS 25.8 [facility] Comment on above: Performed By: #### L [id number] ####[facility] ([facility])[address] [place] [address] 30on 12-30-2023 30 [facility] 30 [facility] DSon 12-30-2023 DS [facility] Orders Onlyon 12-30-2023 Orders Only [facility] POCT GLUCOSE METER UNSOLICIT ED RESULTSon 12-30-2023 Glucose [Mass/Vol] 164 mg/dL High 70-105 [facility] Comment on above: Order Comment: Waive d Testing in the ED is performed under the ED CLIA certificate #[id number]. Result Comment: bflo od Performed By: #### L [id number] ####[facility] ([facility])[address] [place] [address] Glucose [Mass/Vol] 144 mg/dL High 70-105 [facility] Comment on above: Order Comment: Waive d Testing in the ED is performed under the ED CLIA certificate #[id number]. Result Comment: bflo od Performed By: #### L [id number] ####[facility] ([facility])[address] [place] [place] [address] 30on 12-29-2023 30 [facility] 30 [facility] 30 [facility] BASIC METABOLIC PANELon Anion gap [Moles/Vol] 9 mmol/L Normal 7-20 [facility] Comment on above: Performed By: #### L [id number] ####[facility] ([facility])[address] [place] [address] Calcium [Mass/Vol] 8.2 mg/dL Low 8.6-10.3 [facility] Comment on above: Performed By: #### L [id number] ####[facility] ([facility] [place] [address] Chloride [Moles/Vol] 103 mmol/L Normal 98-[address] [facility] Comment on above: Performed By: #### L [id number] ####[facility] ([facility])[address] [place] [place] [address] CO2 [Moles/Vol] 30 mmol/L Normal 21-31 [facility] Comment on above: Performed By: #### L [id number] ####[facility] ([facility])[address] [place] [place] [address] Creatinine [Mass/Vol] 0.69 mg/dL Normal 0.60-1.20 [facility] Comment on above: Performed By: #### L [id number] ####[facility] ([facility])[address] [place] [address] GLOMERULAR FILTRATION RATE ML/MIN/1.73 SQ M.PREDICTED 98.1 mL/min/1.73m*2 Normal >60.0 [facility] Comment on above: Result Comment: The [facility]???s estimated glomerular filtration rate (eGFR) will no [...] of individuals. Performed By: #### L [id number] ####[facility] ([facility] [place] [place] [address] Glucose [Mass/Vol] 164 mg/dL High 70-100 [facility] Comment on above: Performed By: #### L [id number] ####[facility] (BEAKER)[address] [place] [place] [address] Potassium [Moles/Vol] 4.1 mmol/L Normal 3.5-5.1 [facility] Comment on above: Performed By: #### L [id number] ####[facility] (BEAKER)[address] [place] [place] [address] Sodium [Moles/Vol] 138 mmol/L Normal 136-145 [facility] Comment on above: Performed By: #### L [id number] ####[facility] (BEAKER)[address] [place] [place] [address] Urea nitrogen [Mass/Vol] 13 mg/dL Normal 7-25 [facility] Comment on above: Performed By: #### L [id number] ####[facility] (BEAKER)[address] [place] [place] [address] UREA NITROGEN/CREATININE (MASS RATIO) IN SER/PLAS 18.8 Normal [facility] Comment on above: Performed By: #### L [id number] ####[facility] (BEAKER)[address] [place] [place] [address] CBCon 12-29-2023 Erythrocyte distribution width (RBC) [Ratio] 17.5 % High 11.5-15.0 [facility] Comment on above: Performed By: #### L [id number] ####[facility] (BEAKER)[address] [place] [place] [address] ERYTHROCYTE MEAN CORPUSCULAR HEMOGLOBIN CONCENTRATION (G/DL) BY AUTOMATED 31.7 g/dL Low 32.0-35.0 [facility] Comment on above: Performed By: #### L [id number] ####[facility] (BEAKER)[address] [place] [place] [address] Hematocrit (Bld) [Volume fraction] 26.2 % Low 36.0-48.0 [facility] Comment on above: Performed By: #### L [id number] ####[facility] (BEAKER)[address] [place] [place] [address] Hemoglobin (Bld) [Mass/Vol] 8.3 g/dL Low 12.0-15.0 [facility] Comment on above: Performed By: #### L [id number] ####[facility] ([facility])[address] [place] [address] MCH (RBC) [Entitic mass] 32.3 pg Normal 27.0-33.0 [facility] Comment on above: Performed By: #### L [id number] ####[facility] ([facility])[address] [place] [address] MCV (RBC) [Entitic vol] 101.9 fL High 82.0-98.0 [facility] Comment on above: Performed By: #### L [id number] ####[facility] ([facility])[address] [place] [address] PLATELETS (10*3/UL) IN BLOOD AUTOMATED COUNT 393 10*3/uL Normal 150-400 [facility] Comment on above: Performed By: #### L [id number] ####[facility] ([facility])[address] [place] [address] RBC (Bld) [#/Vol] 2.57 10*6/uL Low 3.80-5.00 [facility] Comment on above: Performed By: #### L [id number] ####[facility] ([facility])[address] [place] [address] WBC (Bld) [#/Vol] 6.00 10*3/uL Normal 4.00-10.60 [facility] Comment on above: Performed By: #### L [id number] ####[facility] ([facility])[address] [place] [address] FERRITINon 12-29-2023 FERRITIN (NG/ML) IN SER/PLAS 319.0 ng/mL High 11.0-307.0 [facility] Comment on above: Performed By: #### L [id number] ####[facility] ([facility] [place] [place] [address] MAGNESIUMon 12-29-2023 Magnesium [Mass/Vol] 2.2 mg/dL Normal 1.9-2.[address] [facility] Comment on above: Performed By: #### L [id number] ####[facility] ([facility])[address] [place] [address] POCT GLUCOSE METER UNSOLICIT ED RESULTSon 12-29-2023 Glucose [Mass/Vol] 173 mg/dL High 70-105 [facility] Comment on above: Order Comment: Waive d Testing in the ED is performed under the ED CLIA certificate #[id number]. Result Comment: [email or web address] Performed By: #### L [id number] ####[facility] ([facility])[address] [place] [address] Glucose [Mass/Vol] 133 mg/dL High 70-105 [facility] Comment on above: Order Comment: Waive d Testing in the ED is performed under the ED CLIA certificate #[id number]. Result Comment: [email or web address] Performed By: #### L [id number] ####[facility] ([facility])[address] [place] [address] Glucose [Mass/Vol] 124 mg/dL High 70-105 [facility] Comment on above: Order Comment: Waive d Testing in the ED is performed under the ED CLIA certificate #[id number]. Result Comment: [email or web address] Performed By: #### L [id number] ####[facility] ([facility])[address] [place] [address] Glucose [Mass/Vol] 112 mg/dL High 70-105 [facility] Comment on above: Order Comment: Waive d Testing in the ED is performed under the ED CLIA certificate #[id number]. Result Comment: bflo od Performed By: #### L [id number] ####[facility] ([facility])[address] [place] [address] 30on 12-28-2023 30 Normal [facility] POCT GLUCOSE METER UNSOLICIT ED RESULTSon 12-28-2023 Glucose [Mass/Vol] 166 mg/dL High 70-105 [facility] Comment on above: Order Comment: Waive d Testing in the ED is performed under the ED CLIA certificate #[id number]. Result Comment: [email or web address] Performed By: #### L [id number] ####[facility] ([facility])[address] [place] [address] Glucose [Mass/Vol] 103 mg/dL Normal 70-105 [facility] Comment on above: Order Comment: Waive d Testing in the ED is performed under the ED CLIA certificate #[id number]. Result Comment: [email or web address] Performed By: #### L [id number] ####[facility] ([facility])[address] [place] [address] Glucose [Mass/Vol] 154 mg/dL High 70-105 [facility] Comment on above: Order Comment: Waive d Testing in the ED is performed under the ED CLIA certificate #[id number]. Result Comment: [email or web address] Performed By: #### L [id number] ####[facility] ([facility])[address] [place] [address] Glucose [Mass/Vol] 128 mg/dL High 70-105 [facility] Comment on above: Order Comment: Waive d Testing in the ED is performed under the ED CLIA certificate #[id number]. Result Comment: [email or web address] Performed By: #### L [id number] ####[facility] ([facility])[address] [place] [address] 30on 12-27-2023 30 [facility] 30 [facility] BASIC METABOLIC PANELon 10-0 Anion gap [Moles/Vol] 12 mmol/L Normal 7-20 [facility] Comment on above: Performed By: #### L [id number] ####[facility] ([facility])[address] [place] [address] Calcium [Mass/Vol] 8.1 mg/dL Low 8.6-10.3 [facility] Comment on above: Performed By: #### L [id number] ####[facility] ([facility] [place] [address] Chloride [Moles/Vol] 104 mmol/L Normal 98-[address] [facility] Comment on above: Performed By: #### L [id number] ####[facility] ([facility] [place] [address] CO2 [Moles/Vol] 24 mmol/L Normal 21-31 [facility] Comment on above: Performed By: #### L [id number] ####[facility] ([facility])[address] [place] [address] Creatinine [Mass/Vol] 0.69 mg/dL Normal 0.60-1.20 [facility] Comment on above: Performed By: #### L [id number] ####[facility] ([facility])[address] [place] [address] GLOMERULAR FILTRATION RATE ML/MIN/1.73 SQ M.PREDICTED 98.1 mL/min/1.73m*2 Normal >60.0 [facility] Comment on above: Result Comment: The [facility]???s estimated glomerular filtration rate (eGFR) will no [...] of individuals. Performed By: #### L [id number] ####[facility] ([facility] [place] [address] Glucose [Mass/Vol] 107 mg/dL High 70-100 [facility] Comment on above: Performed By: #### L [id number] ####[facility] ([facility] [place] [address] Potassium [Moles/Vol] 4.6 mmol/L Normal 3.5-5.1 [facility] Comment on above: Performed By: #### L [id number] ####[facility] (BEAKER)[address] [place] [address] Sodium [Moles/Vol] 135 mmol/L Low 136-145 [facility] Comment on above: Performed By: #### L [id number] ####[facility] (BEAKER)[address] [place] [address] Urea nitrogen [Mass/Vol] 20 mg/dL Normal 7-25 [facility] Comment on above: Performed By: #### L [id number] ####[facility] (BEAKER)[address] [place] [address] UREA NITROGEN/CREATININE (MASS RATIO) IN SER/PLAS 29.0 Normal [facility] Comment on above: Performed By: #### L [id number] ####[facility] (BEAKER)[address] [place] [address] CBCon 12-27-2023 Erythrocyte distribution width (RBC) [Ratio] 17.4 % High 11.5-15.0 [facility] Comment on above: Performed By: #### L [id number] ####[facility] (BEAKER)[address] [place] [address] ERYTHROCYTE MEAN CORPUSCULAR HEMOGLOBIN CONCENTRATION (G/DL) BY AUTOMATED 30.4 g/dL Low 32.0-35.0 [facility] Comment on above: Performed By: #### L [id number] ####[facility] (BEAKER)[address] [place] [address] Hematocrit (Bld) [Volume fraction] 28.3 % Low 36.0-48.0 [facility] Comment on above: Performed By: #### L [id number] ####[facility] (BEAKER)[address] [place] [address] Hemoglobin (Bld) [Mass/Vol] 8.6 g/dL Low 12.0-15.0 [facility] Comment on above: Performed By: #### L [id number] ####[facility] (BEAKER)[address] [place] [address] IMMATURE PLATELET FRACTION % 0.5 % Low 0.8-6.3 [facility] Comment on above: Performed By: #### L [id number] ####[facility] (BEAKER)[address] [place] [address] MCH (RBC) [Entitic mass] 32.2 pg Normal 27.0-33.0 [facility] Comment on above: Performed By: #### L [id number] ####[facility] ([facility] [place] [address] MCV (RBC) [Entitic vol] 106.0 fL High 82.0-98.0 [facility] Comment on above: Performed By: #### L [id number] ####[facility] ([facility])[address] [place] [address] Platelet mean volume (Bld) [Entitic vol] 8.9 fL Normal 7.5-11.5 [facility] Comment on above: Performed By: #### L [id number] ####[facility] ([facility])[address] [place] [address] PLATELETS (10*3/UL) IN BLOOD AUTOMATED COUNT 437 10*3/uL High 150-400 [facility] Comment on above: Performed By: #### L [id number] ####[facility] ([facility])[address] [place] [address] RBC (Bld) [#/Vol] 2.67 10*6/uL Low 3.80-5.00 [facility] Comment on above: Performed By: #### L [id number] ####[facility] (BEAKER)[address] [place] [address] WBC (Bld) [#/Vol] 7.03 10*3/uL Normal 4.00-10.60 [facility] Comment on above: Performed By: #### L [id number] ####[facility] (BEAKER)[address] [place] [address] MAGNESIUMon 12-27-2023 Magnesium [Mass/Vol] 2.5 mg/dL Normal 1.9-2.[address] [facility] Comment on above: Performed By: #### L [id number] ####[facility] ([facility])[address] [place], [place] [address] POCT GLUCOSE METER UNSOLICIT ED RESULTSon 12-27-2023 Glucose [Mass/Vol] 100 mg/dL Normal 70-105 [facility] Comment on above: Order Comment: Waive d Testing in the ED is performed under the ED CLIA certificate #[id number]. Result Comment: [email or web address] Performed By: #### L [id number] ####[facility] ([facility])[address] [place], [place] [address] Glucose [Mass/Vol] 130 mg/dL High 70-105 [facility] Comment on above: Order Comment: Waive d Testing in the ED is performed under the ED CLIA certificate #[id number]. Result Comment: [email or web address] Performed By: #### L [id number] ####[facility] ([facility])[address] [place] [address] Glucose [Mass/Vol] 174 mg/dL High 70-105 [facility] Comment on above: Order Comment: Waive d Testing in the ED is performed under the ED CLIA certificate #[id number]. Result Comment: bflo od Performed By: #### L [id number] ####[facility] ([facility])[address] [place] [address] Glucose [Mass/Vol] 131 mg/dL High 70-105 [facility] Comment on above: Order Comment: Waive d Testing in the ED is performed under the ED CLIA certificate #[id number]. Result Comment: bflo od Performed By: #### L [id number] ####[facility] (BEAKER)[address] [place] [address] 30on 12-26-2023 30 Normal [facility] 30 Normal [facility] POCT GLUCOSE METER UNSOLICIT ED RESULTSon 12-26-2023 Glucose [Mass/Vol] 144 mg/dL High 70-105 [facility] Comment on above: Order Comment: Waive d Testing in the ED is performed under the ED CLIA certificate #[id number]. Result Comment: [email or web address] Performed By: #### L [id number] ####[facility] ([facility])[address] [facility] [place] [address] Glucose [Mass/Vol] 161 mg/dL High 70-105 [facility] Comment on above: Order Comment: Waive d Testing in the ED is performed under the ED CLIA certificate #[id number]. Result Comment: cgro ll Performed By: #### L [id number] ####[facility] ([facility])[address] [place] [address] Glucose [Mass/Vol] 118 mg/dL High 70-105 [facility] Comment on above: Order Comment: Waive d Testing in the ED is performed under the ED CLIA certificate #[id number]. Result Comment: [email or web address] [email or web address] Performed By: #### L [id number] ####[facility] ([facility]iz[facility])[address] [place] [address] Glucose [Mass/Vol] 128 mg/dL High 70-105 [facility] Comment on above: Order Comment: Waive d Testing in the ED is performed under the ED CLIA certificate #[id number]. Result Comment: [email or web address] [email or web address] Performed By: #### L [id number] ####[facility] ([facility])[address] [place] [address] 30on 12-25-2023 30 The patient is Moder ately Stable - Low risk of patient condition declining or worsening The patient's goals for the shift include no pain The clinical goals for the shift include vss/pain control Normal [facility] 30 Normal [facility] NURSNOTEon 12-25-2023 NURSNOTE Normal [facility] POCT GLUCOSE METER UNSOLICIT ED RESULTSon 12-25-2023 Glucose [Mass/Vol] 115 mg/dL High 70-105 [facility] Comment on above: Order Comment: Waive d Testing in the ED is performed under the ED CLIA certificate #[id number]. Result Comment: larry morrow Performed By: #### L [id number] ####[facility] ([facility])[address] [facility] [place] [address] Glucose [Mass/Vol] 118 mg/dL High 70-105 [facility] Comment on above: Order Comment: Waive d Testing in the ED is performed under the ED CLIA certificate #[id number]. Result Comment: [email or web address] Performed By: #### L [id number] ####[facility] ([facility])[address] [facility] [place] [address] Glucose [Mass/Vol] 169 mg/dL High 70-105 [facility] Comment on above: Order Comment: Waive d Testing in the ED is performed under the ED CLIA certificate #[id number]. Result Comment: [email or web address] [email or web address] Performed By: #### L [id number] ####[facility] ([facility])[address] [facility] [place] [address] Glucose [Mass/Vol] 126 mg/dL High 70-105 [facility] Comment on above: Order Comment: Waive d Testing in the ED is performed under the ED CLIA certificate #[id number]. Result Comment: [email or web address] Performed By: #### L [id number] ####[facility] ([facility])[address] [facility] [place] [address] 30on 12-24-2023 30 Normal [facility] 30 The patient is Moder ately Stable - Low risk of patient condition declining or worsening The patient's goals for the shift include comfort The clinical goals for the shift include safety Normal [facility] AFB CULTUREon 12-24-2023 AFB CULTURE No growth at 42 days Normal [facility] Comment on above: Performed By: #### L [id number] ####[facility] ([facility])[address] [facility] [facility] [place] [address] AFB STAIN No acid fast bacilli seen Normal [facility] Comment on above: Performed By: #### L [id number] ####[facility] [place] [address] AMYLASE, BODY FLUIDon 2023 AMYLASE (U/L) IN BODY FLUID <10 Normal [facility] Comment on above: Result Comment: The reference range and other method performance specifications have not been established for this test in fluids. the test result should be integrated into the clinical context for interpretation. Performed By: #### L [id number] ####[facility] ([facility])[address] [place] [address] BODY FLUID CELL DIFFERENTIAL on 12-24-2023 BASOPHILS TOTAL PER COUNTED LEUKOCYTES IN BODY FLUID BY MANUAL COUNT 2 Normal [facility] Comment on above: Order Comment: Diffe rential performed on cytospin Performed By: #### L [id number] ####[facility] ([facility])[address] [place] [address] CELLS COUNTED TOTAL (#) IN BODY FLUID 100 Normal [facility] Comment on above: Order Comment: Diffe rential performed on cytospin Performed By: #### L [id number] ####[facility] ([facility])[address] [place] [address] EOSINOPHILS TOTAL PER COUNTED LEUKOCYTES IN BODY FLUID BY MANUAL COUNT 4 Normal [facility] Comment on above: Order Comment: Diffe rential performed on cytospin Performed By: #### L [id number] ####[facility] ([facility])[address] [place] [address] LYMPHOCYTES TOTAL PER COUNTED LEUKOCYTES IN BODY FLUID BY MANUAL COUNT 9 Normal [facility] Comment on above: Order Comment: Diffe rential performed on cytospin Performed By: #### L [id number] ####[facility] ([facility])[address] [place] [address] MESOTHELIAL CELLS TOTAL PER COUNTED LEUKOCYTES IN BODY FLUID BY MANUAL COUN 5 [facility] Comment on above: Order Comment: Diffe rential performed on cytospin Performed By: #### L [id number] ####[facility] ([facility])[address] [facility] [address] MONOCYTES+MACROPHAGES TOTAL PER COUNTED LEUKOCYTES IN BODY FLUID BY MANUAL Normal [facility] Comment on above: Order Comment: Diffe rential performed on cytospin Performed By: #### L [id number] ####[facility] ([facility])[address] [place] [address] NEUTROPHILS TOTAL PER COUNTED LEUKOCYTES IN BODY FLUID BY MANUAL COUNT 80 Normal [facility] Comment on above: Order Comment: Diffe rential performed on cytospin Performed By: #### L [id number] ####[facility] ([facility])[address] [facility] [address] OTHER CELLS BODY FLUID (MANUAL) Normal [facility] Comment on above: Order Comment: Diffe rential performed on cytospin Performed By: #### L [id number] ####[facility] ([facility]ER)[address] [place] [address] BODY FLUID CULTUREon 024 Bacteria identified Cx Nom (Unsp spec) No growth at 5 days [facility] Comment on above: Performed By: #### L [id number] ####[facility] ([facility] [place] [address] GRAM STAIN RESULT Normal [facility] Comment on above: Result Comment: Poly morphonuclear leukocytesNo organisms seenCytocentrifuge sample Performed By: #### L [id number] ####[facility] ([facility] [facility] [place] [address] CHOLESTEROL, BODY FLUIDon CHOLESTEROL (MG/DL) IN BODY FLUID 37 mg/dL [facility] Comment on above: Performed By: #### L [id number] ####[facility] ([facility] [place] [address] CONSULTon 12-24-2023 CONSULT Normal [facility] FUNGAL CULTUREon 12-24-2023 FUNGAL SMEAR No yeast or fungal e lements seen [facility] Comment on above: Performed By: #### L [id number] ####[facility] ([facility] [place] [address] GLUCOSE, BODY FLUIDon 2023 GLUCOSE (MG/DL) IN BODY FLUID 88 mg/dL Normal [facility] Comment on above: Result Comment: The reference range and other method performance specifications have not been established for this test in fluids. the test result should be integrated into the clinical context for interpretation. Performed By: #### L [id number] ####[facility] ([facility])[address] [place] [address] GLUCOSE, RANDOMon 12-24-2023 Glucose [Mass/Vol] 121 mg/dL High 70-100 [facility] Comment on above: Performed By: #### L [id number] ####[facility] ([facility])[address] [place] [address] HEPATIC FUNCTION PANELon Albumin [Mass/Vol] 3.4 g/dL Low 3.5-5.7 [facility] Comment on above: Performed By: #### L [id number] ####[facility] ([facility])[address] [place] [address] ALP [Catalytic activity/Vol] 133 U/L High 34-104 [facility] Comment on above: Performed By: #### L [id number] ####[facility] ([facility])[address] [place] [address] ALT [Catalytic activity/Vol] 22 U/L Normal 7-52 [facility] Comment on above: Performed By: #### L [id number] ####[facility] ([facility])[address] [place] [address] AST [Catalytic activity/Vol] 28 U/L Normal 13-39 [facility] Comment on above: Performed By: #### L [id number] ####[facility] ([facility])[address] [place] [address] Bilirubin [Mass/Vol] 0.4 mg/dL Normal 0.3-1.[address] [facility] Comment on above: Performed By: #### L [id number] ####[facility] (BEAKER)[address] [place] [address] Magnesium [Mass/Vol] 0.1 mg/dL Normal 0-0.[address] [facility] Comment on above: Performed By: #### L [id number] ####[facility] ([facility])[address] [place] [address] Protein [Mass/Vol] 6.1 g/dL Normal 6.0-8.3 [facility] Comment on above: Performed By: #### L [id number] ####[facility] ([facility])[address] [place] [address] LACTATE DEHYDROGENASEon LACTATE DEHYDROGENASE (U/L) IN SER/PLAS BY LAC->PYR RXN 240 U/L Normal 140-271 [facility] Comment on above: Performed By: #### L [id number] ####[facility] ([facility])[address] [place] [address] LACTATE DEHYDROGENASE, BODY FLUIDon 12-24-2023 LACTATE DEHYDROGENASE (U/L) IN BODY FLUID BY LAC->PYR 756 U/L Normal [facility] Comment on above: Result Comment: The reference range and other method performance specifications have not been established for this test in fluids. the test result should be integrated into the clinical context for interpretation. Performed By: #### L [id number] ####[facility] ([facility])[address] [place] [address] NON-PATIENT SAFETY TECH CYTOLOGY - CELLULAR EXAMon 12-24-2023 LAB AP CASE REPORT Normal [facility] Comment on above: Result Comment: Non- gynecologic Cytology Case: [id number] Provider: Rian Butts MD Collected: 12/24/2023 1626Ordering Location: [facility] Received: 12/25/2023 1238Pathologist: BRIANA Neripecimen: Pleural fluid, left Performed By: #### L [id number] ####[facility] ([facility])[address] [place] [address] LAB AP CLINICAL INFORMATION Normal [facility] Comment on above: Result Comment: Left pleural effusion Performed By: #### L [id number] ####[facility] ([facility] [place] [address] LAB AP GROSS DESCRIPTION [facility] Comment on above: Result Comment: 400 mL cloudy, red fluid Performed By: #### L [id number] ####[facility] ([facility] [place] [address] LAB AP REPORT FINAL DIAGNOSIS NARRATIVE [facility] Comment on above: Result Comment: A. P leural fluid, left: - Negative for malignancy. - Marked acute inflammation. Performed By: #### L [id number] ####[facility] ([facility])[address] [place] [address] PATHOLOGY REVIEWon PATHOLOGY REVIEW Reviewed. Normal [facility] Comment on above: Result Comment: Elec tronically signed by Jarrod Sales MD on 12/25/23 at 2:30 PM. Performed By: #### L [id number] ####[facility] ([facility])[address] [place] [address] POCT GLUCOSE METER UNSOLICIT ED RESULTSon 12-24-2023 Glucose [Mass/Vol] 176 mg/dL High 70-105 [facility] Comment on above: Order Comment: Waive d Testing in the ED is performed under the ED CLIA certificate #[id number]. Result Comment: [email or web address] Performed By: #### L [id number] ####[facility] ([facility])[address] [place] [address] Glucose [Mass/Vol] 135 mg/dL High 70-105 [facility] Comment on above: Order Comment: Waive d Testing in the ED is performed under the ED CLIA certificate #[id number]. Result Comment: [email or web address] Performed By: #### L [id number] ####[facility] ([facility] [place] [address] Glucose [Mass/Vol] 128 mg/dL High 70-105 [facility] Comment on above: Order Comment: Waive d Testing in the ED is performed under the ED CLIA certificate #[id number]. Result Comment: [email or web address] Performed By: #### L [id number] ####[facility] ([facility])[address] [place] [address] PROTEIN, BODY FLUIDon 2023 Protein (Body fld) [Mass/Vol] 3.6 g/dL Normal [facility] Comment on above: Result Comment: The reference range and other method performance specifications have not been established for this test in fluids. the test result should be integrated into the clinical context for interpretation. Performed By: #### L [id number] ####[facility] ([facility])[address] [place] [address] PROTIME-INRon 12-24-2023 INR IN PPP BY COAGULATION ASSAY 1.28 High 0.90-1.10 [facility] Comment on above: Result Comment: ACCC P [...] CHEST 1995;108:[id number]-246S. Performed By: #### L [id number] ####[facility] ([facility])[address] [place] [address] PROTHROMBIN TIME (PT) IN PPP BY COAGULATION ASSAY 15.9 Seconds High 12.3-14.8 [facility] Comment on above: Performed By: #### L [id number] ####[facility] ([facility])[address] [place] [address] TRIGLYCERIDES, BODY FLUIDon 12-24-2023 TRIGLYCERIDES (MG/DL) IN BODY FLUID 25 mg/dL Normal [facility] Comment on above: Performed By: #### L [id number] ####[facility] ([facility])[address] [place] [address] VITAMIN Con 12-24-2023 VITAMIN C LEVEL 54 umol/L Normal 23-114 [facility] Comment on above: Result Comment: Rachael min C concentrations lower than 11 umol/L indicate deficiency.Concentrations between 11 and 23 umol/L are consistent with amoderate risk of deficiency due to inadequate tissue stores.Vitamin C concentration is reported as micromoles per liter(umol/L). To convert concentration to milligrams per deciliter(mg/dL), multiply the result by 0.0176.This test was developed and its performance characteristicsdetermined by [facility]. It has not been cleared orapproved by the [place] Food and Drug Administration. This test wasperformed in a CLIA certified laboratory and is intended forclinical purposes.Performed By: [facility] [place], [place] [address]Oelsqlrvgr Director: Leeroy Shah MD, PhDCLIA Number: [id number] Performed By: #### L [id number] ####[facility] ([facility])[address] [place] [address] 30on 12-23-2023 30 Normal [facility] 30 Normal [facility] 30 Normal [facility] 30 The patient is Moder ately Stable - Low risk of patient condition declining or worsening The patient's goals for the shift include comfort The clinical goals for the shift include safety Normal [facility] BASIC METABOLIC PANELon 10-0 Anion gap [Moles/Vol] 9 mmol/L Normal 7-20 [facility] Comment on above: Performed By: #### L [id number] ####[facility] ([facility]AKER)[address] [place] [address] Calcium [Mass/Vol] 7.9 mg/dL Low 8.6-10.3 [facility] Comment on above: Performed By: #### L [id number] ####[facility] ([facility]ER)[address] [place] [address] Chloride [Moles/Vol] 105 mmol/L Normal 98-[address] [facility] Comment on above: Performed By: #### L [id number] ####[facility] (BEAKER)[address] [place] [address] CO2 [Moles/Vol] 26 mmol/L Normal 21-31 [facility] Comment on above: Performed By: #### L [id number] ####[facility] ([facility]ER)[address] [place] [address] Creatinine [Mass/Vol] 0.71 mg/dL Normal 0.60-1.20 [facility] Comment on above: Performed By: #### L [id number] ####[facility] (BE[facility]ER)[address] [place] [address] GLOMERULAR FILTRATION RATE ML/MIN/1.73 SQ M.PREDICTED 96.1 mL/min/1.73m*2 Normal >60.0 [facility] Comment on above: Result Comment: The [facility]???s estimated glomerular filtration rate (eGFR) will no [...] of individuals. Performed By: #### L [id number] ####[facility] ([facility]ER)[address] [place] [address] Glucose [Mass/Vol] 76 mg/dL Normal 70-100 [facility] Comment on above: Performed By: #### L [id number] ####[facility] ([facility] [place] [address] Potassium [Moles/Vol] 4.4 mmol/L Normal 3.5-5.1 [facility] Comment on above: Performed By: #### L [id number] ####[facility] ([facility] [place] [place] [address] Sodium [Moles/Vol] 136 mmol/L Normal 136-145 [facility] Comment on above: Performed By: #### L [id number] ####[facility] ([facility] [place] [address] Urea nitrogen [Mass/Vol] 17 mg/dL Normal 7-25 [facility] Comment on above: Performed By: #### L [id number] ####[facility] ([facility])[address] [place] [address] UREA NITROGEN/CREATININE (MASS RATIO) IN SER/PLAS 23.9 Normal [facility] Comment on above: Performed By: #### L [id number] ####[facility] (BEJENNIFER)[address] [place] [place] [address] CBCon 12-23-2023 Erythrocyte distribution width (RBC) [Ratio] 15.7 % High 11.5-15.0 [facility] Comment on above: Performed By: #### L [id number] ####[facility] ([facility] [place] [place] [address] ERYTHROCYTE MEAN CORPUSCULAR HEMOGLOBIN CONCENTRATION (G/DL) BY AUTOMATED 31.6 g/dL Low 32.0-35.0 [facility] Comment on above: Performed By: #### L [id number] ####[facility] ([facility] [place] [place] [address] Hematocrit (Bld) [Volume fraction] 22.5 % Low 36.0-48.0 [facility] Comment on above: Performed By: #### L [id number] ####[facility] ([facility] [place] [place] [address] Hemoglobin (Bld) [Mass/Vol] 7.1 g/dL Low 12.0-15.0 [facility] Comment on above: Performed By: #### L [id number] ####[facility] ([facility])[address] [place] [address] MCH (RBC) [Entitic mass] 32.0 pg Normal 27.0-33.0 [facility] Comment on above: Performed By: #### L [id number] ####[facility] ([facility])[address] [place] [place] [address] MCV (RBC) [Entitic vol] 101.4 fL High 82.0-98.0 [facility] Comment on above: Performed By: #### L [id number] ####[facility] ([facility])[address] [place] [place] [address] PLATELETS (10*3/UL) IN BLOOD AUTOMATED COUNT 355 10*3/uL Normal 150-400 [facility] Comment on above: Performed By: #### L [id number] ####[facility] ([facility])[address] [place] [place] [address] RBC (Bld) [#/Vol] 2.22 10*6/uL Low 3.80-5.00 [facility] Comment on above: Performed By: #### L [id number] ####[facility] ([facility])[address] [place] [place] [address] WBC (Bld) [#/Vol] 8.18 10*3/uL Normal 4.00-10.60 [facility] Comment on above: Performed By: #### L [id number] ####[facility] ([facility])[address] [place] [place] [address] CT CHEST WO IV CONTRASTon CT CHEST WO IV CONTRAST Invalid Interpretation Code [facility] MAGNESIUMon 12-23-2023 Magnesium [Mass/Vol] 2.4 mg/dL Normal 1.9-2.[address] [facility] Comment on above: Performed By: #### L [id number] ####[facility] ([facility])[address] [place] [address] POCT GLUCOSE METER UNSOLICIT ED RESULTSon 12-23-2023 Glucose [Mass/Vol] 143 mg/dL High 70-105 [facility] Comment on above: Order Comment: Waive d Testing in the ED is performed under the ED CLIA certificate #[id number]. Result Comment: larry morrow Performed By: #### L [id number] ####[facility] ([facility])[address] [place] [address] Glucose [Mass/Vol] 159 mg/dL High 70-105 [facility] Comment on above: Order Comment: Waive d Testing in the ED is performed under the ED CLIA certificate #[id number]. Result Comment: jennifer [email or web address] Performed By: #### L [id number] ####[facility] ([facility])[address] [place] [address] Glucose [Mass/Vol] 130 mg/dL High 70-105 [facility] Comment on above: Order Comment: Waive d Testing in the ED is performed under the ED CLIA certificate #[id number]. Result Comment: [email or web address] Performed By: #### L [id number] ####[facility] ([facility])[address] [place] [address] Glucose [Mass/Vol] 118 mg/dL High 70-105 [facility] Comment on above: Order Comment: Waive d Testing in the ED is performed under the ED CLIA certificate #[id number]. Result Comment: [email or web address] Performed By: #### L [id number] ####[facility] ([facility])[address] [place] [address] VITAMIN Con 12-23-2023 VITAMIN C LEVEL 43 umol/L Normal 23-114 [facility] Comment on above: Result Comment: Rachael min C concentrations lower than 11 umol/L indicate deficiency.Concentrations between 11 and 23 umol/L are consistent with amoderate risk of deficiency due to inadequate tissue stores.Vitamin C concentration is reported as micromoles per liter(umol/L). To convert concentration to milligrams per deciliter(mg/dL), multiply the result by 0.0176.This test was developed and its performance characteristicsdetermined by [facility]. It has not been cleared orapproved by the [place] Food and Drug Administration. This test wasperformed in a CLIA certified laboratory and is intended forclinical purposes.Performed By: [facility] [place], [place] [address]Vcuoghbhzd Director: Leeroy Shah MD, PhDCLIA Number: [id number] Performed By: #### L [id number] ####[facility] (BEAKER)[address] [place] [address] 30on 12-22-2023 30 Normal [facility] 30 Normal [facility] 30 The patient is Moder ately Stable - Low risk of patient condition declining or worsening The patient's goals for the shift include comfort The clinical goals for the shift include safety Normal [facility] BASIC METABOLIC PANELon 09 Anion gap [Moles/Vol] 11 mmol/L Normal 7-20 [facility] Comment on above: Performed By: #### L [id number] ####[facility] ([facility])[address] [place] [address] Calcium [Mass/Vol] 8.2 mg/dL Low 8.6-10.3 [facility] Comment on above: Performed By: #### L [id number] ####[facility] ([facility])[address] [place] [address] Chloride [Moles/Vol] 103 mmol/L Normal 98-[address] [facility] Comment on above: Performed By: #### L [id number] ####[facility] ([facility])[address] [place] [address] CO2 [Moles/Vol] 28 mmol/L Normal 21-31 [facility] Comment on above: Performed By: #### L [id number] ####[facility] ([facility])[address] [place] [address] Creatinine [Mass/Vol] 0.71 mg/dL Normal 0.60-1.20 [facility] Comment on above: Performed By: #### L [id number] ####[facility] ([facility])[address] [place] [place] [address] GLOMERULAR FILTRATION RATE ML/MIN/1.73 SQ M.PREDICTED 96.1 mL/min/1.73m*2 Normal >60.0 [facility] Comment on above: Result Comment: The [facility]???s estimated glomerular filtration rate (eGFR) will no [...] of individuals. Performed By: #### L [id number] ####[facility] ([facility])[address] [place] [address] Glucose [Mass/Vol] 103 mg/dL High 70-100 [facility] Comment on above: Performed By: #### L [id number] ####[facility] ([facility])[address] [place] [address] Potassium [Moles/Vol] 3.7 mmol/L Normal 3.5-5.1 [facility] Comment on above: Performed By: #### L [id number] ####[facility] ([facility])[address] [place] [address] Sodium [Moles/Vol] 138 mmol/L Normal 136-145 [facility] Comment on above: Performed By: #### L [id number] ####[facility] ([facility])[address] [place] [address] Urea nitrogen [Mass/Vol] 16 mg/dL Normal 7-25 [facility] Comment on above: Performed By: #### L [id number] ####[facility] ([facility])[address] [place] [place] [address] UREA NITROGEN/CREATININE (MASS RATIO) IN SER/PLAS 22.5 Normal [facility] Comment on above: Performed By: #### L [id number] ####[facility] ([facility])[address] [place] [place] [address] CBCon 12-22-2023 Erythrocyte distribution width (RBC) [Ratio] 14.5 % Normal 11.5-15.0 [facility] Comment on above: Performed By: #### L [id number] ####[facility] ([facility])[address] [place] [place] [address] ERYTHROCYTE MEAN CORPUSCULAR HEMOGLOBIN CONCENTRATION (G/DL) BY AUTOMATED 31.5 g/dL Low 32.0-35.0 [facility] Comment on above: Performed By: #### L [id number] ####[facility] ([facility])[address] [place] [place] [address] Hematocrit (Bld) [Volume fraction] 25.1 % Low 36.0-48.0 [facility] Comment on above: Performed By: #### L [id number] ####[facility] ([facility])[address] [place] [place] [address] Hemoglobin (Bld) [Mass/Vol] 7.9 g/dL Low 12.0-15.0 [facility] Comment on above: Performed By: #### L [id number] ####[facility] ([facility])[address] [place] [address] MCH (RBC) [Entitic mass] 32.1 pg Normal 27.0-33.0 [facility] Comment on above: Performed By: #### L [id number] ####[facility] [place] [place] [address] MCV (RBC) [Entitic vol] 102.0 fL High 82.0-98.0 [facility] Comment on above: Performed By: #### L [id number] ####[facility] ([facility])[address] [place] [place] [address] PLATELETS (10*3/UL) IN BLOOD AUTOMATED COUNT 338 10*3/uL Normal 150-400 [facility] Comment on above: Performed By: #### L [id number] ####[facility] ([facility])[address] [place] [place] [address] RBC (Bld) [#/Vol] 2.46 10*6/uL Low 3.80-5.00 [facility] Comment on above: Performed By: #### L [id number] ####[facility] ([facility])[address] [place] [address] WBC (Bld) [#/Vol] 7.31 10*3/uL Normal 4.00-10.60 [facility] Comment on above: Performed By: #### L [id number] ####[facility] ([facility])[address] [place] [place] [address] MAGNESIUMon 12-22-2023 Magnesium [Mass/Vol] 2.2 mg/dL Normal 1.9-2.[address] [facility] Comment on above: Performed By: #### L [id number] ####[facility] ([facility])[address] [place] [place] [address] POCT GLUCOSE METER UNSOLICIT ED RESULTSon 12-22-2023 Glucose [Mass/Vol] 158 mg/dL High 70-105 [facility] Comment on above: Order Comment: Waive d Testing in the ED is performed under the ED CLIA certificate #[id number]. Result Comment: [email or web address] Performed By: #### L [id number] ####[facility] ([facility])[address] [place] [address] Glucose [Mass/Vol] 129 mg/dL High 70-105 [facility] Comment on above: Order Comment: Waive d Testing in the ED is performed under the ED CLIA certificate #[id number]. Result Comment: [email or web address] Performed By: #### L [id number] ####[facility] (BEAKER)[address] [place] [address] Glucose [Mass/Vol] 175 mg/dL High 70-105 [facility] Comment on above: Order Comment: Waive d Testing in the ED is performed under the ED CLIA certificate #[id number]. Result Comment: [email or web address] Performed By: #### L [id number] ####[facility] (BE[facility]ER)[address] [place] [address] Glucose [Mass/Vol] 100 mg/dL Normal 70-105 [facility] Comment on above: Order Comment: Waive d Testing in the ED is performed under the ED CLIA certificate #[id number]. Result Comment: [email or web address] Performed By: #### L [id number] ####[facility] (BE[facility]ER)[address] [place] [address] VITAMIN Con 12-22-2023 VITAMIN C LEVEL 35 umol/L Normal 23-114 [facility] Comment on above: Result Comment: Rachael min C concentrations lower than 11 umol/L indicate deficiency.Concentrations between 11 and 23 umol/L are consistent with amoderate risk of deficiency due to inadequate tissue stores.Vitamin C concentration is reported as micromoles per liter(umol/L). To convert concentration to milligrams per deciliter(mg/dL), multiply the result by 0.0176.This test was developed and its performance characteristicsdetermined by [facility]. It has not been cleared orapproved by the [place] Food and Drug Administration. This test wasperformed in a CLIA certified laboratory and is intended forclinical purposes.Performed By: [facility] [place], [place] [address]Qtxndroaae Director: Leeroy Shah MD, PhDCLIA Number: [id number] Performed By: #### L [id number] ####[facility] ([facility])[address] [place] [address] 30on 12-21-2023 30 Normal [facility] 30 Normal [facility] BASIC METABOLIC PANELon 11-23 Anion gap [Moles/Vol] 11 mmol/L Normal 7-20 [facility] Comment on above: Performed By: #### L [id number] ####[facility] ([facility])[address] [place] [place] [address] Calcium [Mass/Vol] 8.0 mg/dL Low 8.6-10.3 [facility] Comment on above: Performed By: #### L [id number] ####[facility] ([facility])[address] [place] [place] [address] Chloride [Moles/Vol] 104 mmol/L Normal 98-[address] [facility] Comment on above: Performed By: #### L [id number] ####[facility] ([facility])[address] [place] [place] [address] CO2 [Moles/Vol] 26 mmol/L Normal 21-31 [facility] Comment on above: Performed By: #### L [id number] ####[facility] ([facility])[address] [place] [place] [address] Creatinine [Mass/Vol] 0.62 mg/dL Normal 0.60-1.20 [facility] Comment on above: Performed By: #### L [id number] ####[facility] ([facility])[address] [place] [place] [address] GLOMERULAR FILTRATION RATE ML/MIN/1.73 SQ M.PREDICTED 100.6 mL/min/1.73m*2 Normal >60.0 [facility] Comment on above: Result Comment: The [facility]???s estimated glomerular filtration rate (eGFR) will no [...] of individuals. Performed By: #### L [id number] ####[facility] ([facility] [place] [place] [address] Glucose [Mass/Vol] 93 mg/dL Normal 70-100 [facility] Comment on above: Performed By: #### L [id number] ####[facility] ([facility] [place] [place] [address] Potassium [Moles/Vol] 4.2 mmol/L Normal 3.5-5.1 [facility] Comment on above: Performed By: #### L [id number] ####[facility] [place] [place] [address] Sodium [Moles/Vol] 137 mmol/L Normal 136-145 [facility] Comment on above: Performed By: #### L [id number] ####[facility] ([facility] [place] [place] [address] Urea nitrogen [Mass/Vol] 17 mg/dL Normal 7-25 [facility] Comment on above: Performed By: #### L [id number] ####[facility] ([facility])[address] [place] [place] [address] UREA NITROGEN/CREATININE (MASS RATIO) IN SER/PLAS 27.4 Normal [facility] Comment on above: Performed By: #### L [id number] ####[facility] ([facility])[address] [place] [place] [address] CBCon 12-21-2023 Erythrocyte distribution width (RBC) [Ratio] 14.2 % Normal 11.5-15.0 [facility] Comment on above: Performed By: #### L [id number] ####[facility] ([facility])[address] [place] [place] [address] ERYTHROCYTE MEAN CORPUSCULAR HEMOGLOBIN CONCENTRATION (G/DL) BY AUTOMATED 31.1 g/dL Low 32.0-35.0 [facility] Comment on above: Performed By: #### L [id number] ####[facility] ([facility] [place] [place] [address] Hematocrit (Bld) [Volume fraction] 21.9 % Low 36.0-48.0 [facility] Comment on above: Performed By: #### L [id number] ####[facility] ([facility])[address] [place] [address] Hemoglobin (Bld) [Mass/Vol] 6.8 g/dL Low 12.0-15.0 [facility] Comment on above: Performed By: #### L [id number] ####[facility] ([facility])[address] [place] [address] MCH (RBC) [Entitic mass] 31.1 pg Normal 27.0-33.0 [facility] Comment on above: Performed By: #### L [id number] ####[facility] ([facility])[address] [place] [place] [address] MCV (RBC) [Entitic vol] 100.0 fL High 82.0-98.0 [facility] Comment on above: Performed By: #### L [id number] ####[facility] ([facility])[address] [place] [address] PLATELETS (10*3/UL) IN BLOOD AUTOMATED COUNT 300 10*3/uL Normal 150-400 [facility] Comment on above: Performed By: #### L [id number] ####[facility] ([facility])[address] [place] [address] RBC (Bld) [#/Vol] 2.19 10*6/uL Low 3.80-5.00 [facility] Comment on above: Performed By: #### L [id number] ####[facility] ([facility])[address] [place] [place] [address] WBC (Bld) [#/Vol] 6.04 10*3/uL Normal 4.00-10.60 [facility] Comment on above: Performed By: #### L [id number] ####[facility] ([facility])[address] [place] [place] [address] MAGNESIUMon 12-21-2023 Magnesium [Mass/Vol] 2.3 mg/dL Normal 1.9-2.[address] [facility] Comment on above: Performed By: #### L [id number] ####[facility] ([facility])[address] [place] [address] POCT GLUCOSE METER UNSOLICIT ED RESULTSon 12-21-2023 Glucose [Mass/Vol] 189 mg/dL High 70-105 [facility] Comment on above: Order Comment: Waive d Testing in the ED is performed under the ED CLIA certificate #[id number]. Result Comment: [email or web address] Performed By: #### L [id number] ####[facility] ([facility])[address] [place] [address] Glucose [Mass/Vol] 85 mg/dL Normal 70-105 [facility] Comment on above: Order Comment: Waive d Testing in the ED is performed under the ED CLIA certificate #[id number]. Result Comment: [email or web address] Performed By: #### L [id number] ####[facility] ([facility])[address] [place] [address] Glucose [Mass/Vol] 229 mg/dL High 70-105 [facility] Comment on above: Order Comment: Waive d Testing in the ED is performed under the ED CLIA certificate #[id number]. Result Comment: [email or web address] Performed By: #### L [id number] ####[facility] ([facility])[address] [place] [address] Glucose [Mass/Vol] 142 mg/dL High 70-105 [facility] Comment on above: Order Comment: Waive d Testing in the ED is performed under the ED CLIA certificate #[id number]. Result Comment: [email or web address] Performed By: #### L [id number] ####[facility] ([facility])[address] [place] [address] VITAMIN Con 12-21-2023 VITAMIN C LEVEL 24 umol/L Normal 23-114 [facility] Comment on above: Result Comment: Rachael min C concentrations lower than 11 umol/L indicate deficiency.Concentrations between 11 and 23 umol/L are consistent with amoderate risk of deficiency due to inadequate tissue stores.Vitamin C concentration is reported as micromoles per liter(umol/L). To convert concentration to milligrams per deciliter(mg/dL), multiply the result by 0.0176.This test was developed and its performance characteristicsdetermined by [facility]. It has not been cleared orapproved by the [place] Food and Drug Administration. This test wasperformed in a CLIA certified laboratory and is intended forclinical purposes.Performed By: [facility] [place], [place] [address]Rohthorfsq Director: Leeroy Shah MD, PhDCLIA Number: [id number] Performed By: #### L [id number] ####[facility] ([facility])[address] [place] [address] MAGNESIUMon 12-20-2023 Magnesium [Mass/Vol] 2.2 mg/dL Normal 1.9-2.[address] [facility] Comment on above: Performed By: #### L [id number] ####[facility] ([facility] [place] [address] POCT GLUCOSE METER UNSOLICIT ED RESULTSon 12-20-2023 Glucose [Mass/Vol] 140 mg/dL High 70-105 [facility] Comment on above: Order Comment: Waive d Testing in the ED is performed under the ED CLIA certificate #[id number]. Result Comment: [email or web address] Performed By: #### L [id number] ####[facility] ([facility] [place] [address] Glucose [Mass/Vol] 152 mg/dL High 70-105 [facility] Comment on above: Order Comment: Waive d Testing in the ED is performed under the ED CLIA certificate #[id number]. Result Comment: [email or web address] Performed By: #### L [id number] ####[facility] (BEAKER)[address] [place] [address] Glucose [Mass/Vol] 193 mg/dL High 70-105 [facility] Comment on above: Order Comment: Waive d Testing in the ED is performed under the ED CLIA certificate #[id number]. Result Comment: [email or web address] dic Performed By: #### L [id number] ####[facility] ([facility])[address] [place] [address] Glucose [Mass/Vol] 119 mg/dL High 70-105 [facility] Comment on above: Order Comment: Waive d Testing in the ED is performed under the ED CLIA certificate #[id number]. Result Comment: [email or web address] [email or web address] Performed By: #### L [id number] ####[facility] ([facility]ER)[address] [place] [address] 30on 12-19-2023 30 The patient is Moder ately Stable - Low risk of patient condition declining or worsening The patient's goals for the shift include comfort The clinical goals for the shift include safety Normal [facility] 30 [facility] 30 [facility] 30 [facility] BASIC METABOLIC PANELon 11-23 Anion gap [Moles/Vol] 7 mmol/L Normal 7-20 [facility] Comment on above: Performed By: #### L [id number] ####[facility] ([facility]ER)[address] [place] [address] Calcium [Mass/Vol] 8.1 mg/dL Low 8.6-10.3 [facility] Comment on above: Performed By: #### L [id number] ####[facility] ([facility])[address] [place] [address] Chloride [Moles/Vol] 103 mmol/L Normal 98-[address] [facility] Comment on above: Performed By: #### L [id number] ####[facility] ([facility])[address] [place] [address] CO2 [Moles/Vol] 27 mmol/L Normal 21-31 [facility] Comment on above: Performed By: #### L [id number] ####[facility] ([facility])[address] [place] [address] Creatinine [Mass/Vol] 0.65 mg/dL Normal 0.60-1.20 [facility] Comment on above: Performed By: #### L [id number] ####[facility] ([facility])[address] [place] [place] [address] GLOMERULAR FILTRATION RATE ML/MIN/1.73 SQ M.PREDICTED 99.5 mL/min/1.73m*2 Normal >60.0 [facility] Comment on above: Result Comment: The [facility]???s estimated glomerular filtration rate (eGFR) will no [...] of individuals. Performed By: #### L [id number] ####[facility] ([facility])[address] [place] [address] Glucose [Mass/Vol] 116 mg/dL High 70-100 [facility] Comment on above: Performed By: #### L [id number] ####[facility] ([facility])[address] [place] [address] Potassium [Moles/Vol] 4.1 mmol/L Normal 3.5-5.1 [facility] Comment on above: Performed By: #### L [id number] ####[facility] ([facility])[address] [place] [address] Sodium [Moles/Vol] 133 mmol/L Low 136-145 [facility] Comment on above: Performed By: #### L [id number] ####[facility] ([facility])[address] [place] [address] Urea nitrogen [Mass/Vol] 20 mg/dL Normal 7-25 [facility] Comment on above: Performed By: #### L [id number] ####[facility] ([facility])[address] [place] [place] [address] UREA NITROGEN/CREATININE (MASS RATIO) IN SER/PLAS 30.8 Normal [facility] Comment on above: Performed By: #### L [id number] ####[facility] ([facility])[address] [place] [address] CBCon 12-19-2023 Erythrocyte distribution width (RBC) [Ratio] 13.2 % Normal 11.5-15.0 [facility] Comment on above: Performed By: #### L [id number] ####[facility] ([facility])[address] [place] [place] [address] ERYTHROCYTE MEAN CORPUSCULAR HEMOGLOBIN CONCENTRATION (G/DL) BY AUTOMATED 32.4 g/dL Normal 32.0-35.0 [facility] Comment on above: Performed By: #### L [id number] ####[facility] ([facility])[address] [place] [place] [address] Hematocrit (Bld) [Volume fraction] 21.6 % Low 36.0-48.0 [facility] Comment on above: Performed By: #### L [id number] ####[facility] ([facility])[address] [place] [place] [address] Hemoglobin (Bld) [Mass/Vol] 7.0 g/dL Low 12.0-15.0 [facility] Comment on above: Performed By: #### L [id number] ####[facility] ([facility])[address] [place] [place] [address] MCH (RBC) [Entitic mass] 31.5 pg Normal 27.0-33.0 [facility] Comment on above: Performed By: #### L [id number] ####[facility] [place] [place] [address] MCV (RBC) [Entitic vol] 97.3 fL Normal 82.0-98.0 [facility] Comment on above: Performed By: #### L [id number] ####[facility] [place] [place] [address] PLATELETS (10*3/UL) IN BLOOD AUTOMATED COUNT 183 10*3/uL Normal 150-400 [facility] Comment on above: Performed By: #### L [id number] ####[facility] ([facility])[address] [place], [place] [address] RBC (Bld) [#/Vol] 2.22 10*6/uL Low 3.80-5.00 [facility] Comment on above: Performed By: #### L [id number] ####[facility] ([facility])[address] [place], [place] [address] WBC (Bld) [#/Vol] 6.45 10*3/uL Normal 4.00-10.60 [facility] Comment on above: Performed By: #### L [id number] ####[facility] ([facility])[address] [place], [place] [address] MAGNESIUMon 12-19-2023 Magnesium [Mass/Vol] 2.1 mg/dL Normal 1.9-2.[address] [facility] Comment on above: Performed By: #### L [id number] ####[facility] ([facility])[address] [place], [place] [address] POCT GLUCOSE METER UNSOLICIT ED RESULTSon 12-19-2023 Glucose [Mass/Vol] 181 mg/dL High 70-105 [facility] Comment on above: Order Comment: Waive d Testing in the ED is performed under the ED CLIA certificate #[id number]. Result Comment: [email or web address] Performed By: #### L [id number] ####[facility] ([facility])[address] [place] [address] Glucose [Mass/Vol] 148 mg/dL High 70-105 [facility] Comment on above: Order Comment: Waive d Testing in the ED is performed under the ED CLIA certificate #[id number]. Result Comment: bflo od Performed By: #### L [id number] ####[facility] ([facility])[address] [place] [address] Glucose [Mass/Vol] 204 mg/dL High 70-105 [facility] Comment on above: Order Comment: Waive d Testing in the ED is performed under the ED CLIA certificate #[id number]. Result Comment: bflo od Performed By: #### L [id number] ####[facility] ([facility])[address] [place] [address] Glucose [Mass/Vol] 150 mg/dL High 70-105 [facility] Comment on above: Order Comment: Waive d Testing in the ED is performed under the ED CLIA certificate #[id number]. Result Comment: bflo od Performed By: #### L [id number] ####[facility] ([facility])[address] [place] [address] 30on 12-18-2023 30 Normal [facility] 30 Normal [facility] ALBUMINon 12-18-2023 Albumin [Mass/Vol] 3.2 g/dL Low 3.5-5.7 [facility] Comment on above: Performed By: #### L [id number] ####[facility] ([facility])[address] [place] [address] BASIC METABOLIC PANELon 11-23 Anion gap [Moles/Vol] 7 mmol/L Normal 7-20 [facility] Comment on above: Performed By: #### L [id number] ####[facility] ([facility])[address] [place] [address] Calcium [Mass/Vol] 8.4 mg/dL Low 8.6-10.3 [facility] Comment on above: Performed By: #### L [id number] ####[facility] ([facility])[address] [place] [address] Chloride [Moles/Vol] 103 mmol/L Normal 98-[address] [facility] Comment on above: Performed By: #### L [id number] ####[facility] ([facility])[address] [place] [address] CO2 [Moles/Vol] 27 mmol/L Normal 21-31 [facility] Comment on above: Performed By: #### L [id number] ####[facility] ([facility])[address] [place] [address] Creatinine [Mass/Vol] 0.72 mg/dL Normal 0.60-1.20 [facility] Comment on above: Performed By: #### L [id number] ####[facility] ([facility])[address] [place], [place] [address] GLOMERULAR FILTRATION RATE ML/MIN/1.73 SQ M.PREDICTED 94.5 mL/min/1.73m*2 Normal >60.0 [facility] Comment on above: Result Comment: The [facility]???s estimated glomerular filtration rate (eGFR) will no [...] of individuals. Performed By: #### L [id number] ####[facility] ([facility])[address] [place] [address] Glucose [Mass/Vol] 122 mg/dL High 70-100 [facility] Comment on above: Performed By: #### L [id number] ####[facility] ([facility])[address] [place] [address] Potassium [Moles/Vol] 4.2 mmol/L Normal 3.5-5.1 [facility] Comment on above: Performed By: #### L [id number] ####[facility] ([facility])[address] [place] [place] [address] Sodium [Moles/Vol] 133 mmol/L Low 136-145 [facility] Comment on above: Performed By: #### L [id number] ####[facility] ([facility])[address] [place] [address] Urea nitrogen [Mass/Vol] 20 mg/dL Normal 7-25 [facility] Comment on above: Performed By: #### L [id number] ####[facility] ([facility])[address] [place] [place] [address] UREA NITROGEN/CREATININE (MASS RATIO) IN SER/PLAS 27.8 Normal [facility] Comment on above: Performed By: #### L [id number] ####[facility] ([facility])[address] [place] [place] [address] CBCon 12-18-2023 Erythrocyte distribution width (RBC) [Ratio] 13.1 % Normal 11.5-15.0 [facility] Comment on above: Performed By: #### L [id number] ####[facility] ([facility])[address] [place] [place] [address] ERYTHROCYTE MEAN CORPUSCULAR HEMOGLOBIN CONCENTRATION (G/DL) BY AUTOMATED 32.8 g/dL Normal 32.0-35.0 [facility] Comment on above: Performed By: #### L [id number] ####[facility] ([facility])[address] [place] [place] [address] Hematocrit (Bld) [Volume fraction] 22.9 % Low 36.0-48.0 [facility] Comment on above: Performed By: #### L [id number] ####[facility] [place] [place] [address] Hemoglobin (Bld) [Mass/Vol] 7.5 g/dL Low 12.0-15.0 [facility] Comment on above: Performed By: #### L [id number] ####[facility] [place] [place] [address] MCH (RBC) [Entitic mass] 31.5 pg Normal 27.0-33.0 [facility] Comment on above: Performed By: #### L [id number] ####[facility] ([facility])[address] [place] [place] [address] MCV (RBC) [Entitic vol] 96.2 fL Normal 82.0-98.0 [facility] Comment on above: Performed By: #### L [id number] ####[facility] [place] [address] PLATELETS (10*3/UL) IN BLOOD AUTOMATED COUNT 161 10*3/uL Normal 150-400 [facility] Comment on above: Performed By: #### L [id number] ####[facility] ([facility])[address] [place] [address] RBC (Bld) [#/Vol] 2.38 10*6/uL Low 3.80-5.00 [facility] Comment on above: Performed By: #### L [id number] ####[facility] ([facility])[address] [place] [place] [address] WBC (Bld) [#/Vol] 8.15 10*3/uL Normal 4.00-10.60 [facility] Comment on above: Performed By: #### L [id number] ####[facility] [place] [address] CT CHEST WO IV CONTRASTon CT CHEST WO IV CONTRAST Invalid Interpretation Code [facility] IRON AND TIBCon 12-18-2023 IRON (UG/DL) IN SER/PLAS 21 ug/dL Low 50-212 [facility] Comment on above: Performed By: #### L [id number] ####[facility] [place] [address] IRON BINDING CAPACITY (UG/DL) IN SER/PLAS 187 ug/dL Low 250-450 [facility] Comment on above: Performed By: #### L [id number] ####[facility] ([facility])[address] [facility] [place] [address] IRON BINDING CAPACITY.UNSATURATED (UG/DL) IN SER/PLAS 166.0 ug/dL Normal 155.0-355. 0 [facility] Comment on above: Performed By: #### L [id number] ####[facility] ([facility])[address] [place] [address] IRON SATURATION (%) IN SER/PLAS 11 % Low 20-50 [facility] Comment on above: Performed By: #### L [id number] ####[facility] ([facility])[address] [place] [place] [address] MAGNESIUMon 12-18-2023 Magnesium [Mass/Vol] 2.0 mg/dL Normal 1.9-2.[address] [facility] Comment on above: Performed By: #### L [id number] ####[facility] ([facility])[address] [place] [address] NURSNOTEon 12-18-2023 NURSNOT Normal [facility] NURSNOTE Normal [facility] GLUCOSE METER UNSOLICIT ED RESULTSon 12-18-2023 Glucose [Mass/Vol] 138 mg/dL High 70-105 [facility] Comment on above: Order Comment: Waive d Testing in the ED is performed under the ED CLIA certificate #[id number]. Result Comment: larry morrow Performed By: #### L [id number] ####[facility] ([facility])[address] [place] [place] [address] Glucose [Mass/Vol] 163 mg/dL High 70-105 [facility] Comment on above: Order Comment: Waive d Testing in the ED is performed under the ED CLIA certificate #[id number]. Result Comment: [email or web address] Performed By: #### L [id number] ####[facility] ([facility])[address] [place] [place] [address] Glucose [Mass/Vol] 118 mg/dL High 70-105 [facility] Comment on above: Order Comment: Waive d Testing in the ED is performed under the ED CLIA certificate #[id number]. Result Comment: [email or web address] Performed By: #### L [id number] ####[facility] ([facility])[address] [place] [address] Glucose [Mass/Vol] 160 mg/dL High 70-105 [facility] Comment on above: Order Comment: Waive d Testing in the ED is performed under the ED CLIA certificate #[id number]. Result Comment: [email or web address] Performed By: #### L [id number] ####[facility] ([place])[address] [place] [address] PROCALCITONIN TESTon 024 PROCALCITONIN IN BLOOD 0.22 ng/mL High 0.00-0.10 [facility] Comment on above: Result Comment: Susp ected [...] and initial PCT<0.5ng/mL Performed By: #### L [id number] ####[facility] ([place])[address] [place] [address] TSHon 12-18-2023 THYROTROPIN (MIU/L) IN SER/PLAS BY DETECTION LIMIT <= 0.05 MIU/L 5.49 mIU/L Normal 0.34-5.60 [facility] Comment on above: Performed By: #### L [id number] ####[facility] [place] [place] [address] 30on 12-17-2023 30 Normal [facility] BASIC METABOLIC PANELon 11-23 Anion gap [Moles/Vol] 8 mmol/L Normal 7-20 [facility] Comment on above: Performed By: #### L [id number] ####[facility] ([facility])[address] [place] [place] [address] Calcium [Mass/Vol] 8.5 mg/dL Low 8.6-10.3 [facility] Comment on above: Performed By: #### L [id number] ####[facility] ([facility])[address] [place] [place] [address] Chloride [Moles/Vol] 104 mmol/L Normal 98-[address] [facility] Comment on above: Performed By: #### L [id number] ####[facility] ([facility])[address] [place] [place] [address] CO2 [Moles/Vol] 28 mmol/L Normal 21-31 [facility] Comment on above: Performed By: #### L [id number] ####[facility] ([facility])[address] [place] [place] [address] Creatinine [Mass/Vol] 0.68 mg/dL Normal 0.60-1.20 [facility] Comment on above: Performed By: #### L [id number] ####[facility] ([facility])[address] [place] [address] GLOMERULAR FILTRATION RATE ML/MIN/1.73 SQ M.PREDICTED 98.4 mL/min/1.73m*2 Normal >60.0 [facility] Comment on above: Result Comment: The [facility]???s estimated glomerular filtration rate (eGFR) will no [...] of individuals. Performed By: #### L [id number] ####[facility] [place] [address] Glucose [Mass/Vol] 110 mg/dL High 70-100 [facility] Comment on above: Performed By: #### L [id number] ####[facility] ([facility])[address] [place] [address] Potassium [Moles/Vol] 3.4 mmol/L Low 3.5-5.1 [facility] Comment on above: Performed By: #### L [id number] ####[facility] ([facility])[address] [place] [address] Sodium [Moles/Vol] 137 mmol/L Normal 136-145 [facility] Comment on above: Performed By: #### L [id number] ####[facility] [place] [address] Urea nitrogen [Mass/Vol] 15 mg/dL Normal 7-25 [facility] Comment on above: Performed By: #### L [id number] ####[facility] [place] [address] UREA NITROGEN/CREATININE (MASS RATIO) IN SER/PLAS 22.1 Normal [facility] Comment on above: Performed By: #### L [id number] ####[facility] ([facility])[address] [place] [address] CBCon 12-17-2023 Erythrocyte distribution width (RBC) [Ratio] 13.0 % Normal 11.5-15.0 [facility] Comment on above: Performed By: #### L [id number] ####[facility] ([facility] [place] [address] ERYTHROCYTE MEAN CORPUSCULAR HEMOGLOBIN CONCENTRATION (G/DL) BY AUTOMATED 33.5 g/dL Normal 32.0-35.0 [facility] Comment on above: Performed By: #### L [id number] ####[facility] ([facility])[address] [place] [place] [address] Hematocrit (Bld) [Volume fraction] 23.0 % Low 36.0-48.0 [facility] Comment on above: Performed By: #### L [id number] ####[facility] ([facility])[address] [place] [place] [address] Hemoglobin (Bld) [Mass/Vol] 7.7 g/dL Low 12.0-15.0 [facility] Comment on above: Performed By: #### L [id number] ####[facility] ([facility])[address] [place] [place] [address] MCH (RBC) [Entitic mass] 31.3 pg Normal 27.0-33.0 [facility] Comment on above: Performed By: #### L [id number] ####[facility] ([facility])[address] [place] [place] [address] MCV (RBC) [Entitic vol] 93.5 fL Normal 82.0-98.0 [facility] Comment on above: Performed By: #### L [id number] ####[facility] ([facility])[address] [place] [place] [address] PLATELETS (10*3/UL) IN BLOOD AUTOMATED COUNT 135 10*3/uL Low 150-400 [facility] Comment on above: Performed By: #### L [id number] ####[facility] ([facility])[address] [place] [place] [address] RBC (Bld) [#/Vol] 2.46 10*6/uL Low 3.80-5.00 [facility] Comment on above: Performed By: #### L [id number] ####[facility] ([facility])[address] [place] [place] [address] WBC (Bld) [#/Vol] 9.45 10*3/uL Normal 4.00-10.60 [facility] Comment on above: Performed By: #### L [id number] ####[facility] [place] [address] IRON AND TIBCon 12-17-2023 IRON (UG/DL) IN SER/PLAS 28 ug/dL Low 50-212 [facility] Comment on above: Performed By: #### L [id number] ####[facility] ([facility])[address] [place] [address] IRON BINDING CAPACITY (UG/DL) IN SER/PLAS 190 ug/dL Low 250-450 [facility] Comment on above: Performed By: #### L [id number] ####[facility] ([facility])[address] [place] [address] IRON BINDING CAPACITY.UNSATURATED (UG/DL) IN SER/PLAS 162.0 ug/dL Normal 155.0-355. 0 [facility] Comment on above: Performed By: #### L [id number] ####[facility] ([facility])[address] [place] [address] IRON SATURATION (%) IN SER/PLAS 15 % Low 20-50 [facility] Comment on above: Performed By: #### L [id number] ####[facility] ([facility])[address] [place] [address] MAGNESIUMon 12-17-2023 Magnesium [Mass/Vol] 2.0 mg/dL Normal 1.9-2.[address] [facility] Comment on above: Performed By: #### L [id number] ####[facility] ([facility])[address] [place] [address] Orders Onlyon 12-17-2023 Orders Only Normal [facility] POCT GLUCOSE METER UNSOLICIT ED RESULTSon 12-17-2023 Glucose [Mass/Vol] 178 mg/dL High 70-105 [facility] Comment on above: Order Comment: Waive d Testing in the ED is performed under the ED CLIA certificate #[id number]. Result Comment: [email or web address] Performed By: #### L [id number] ####[facility] ([facility])[address] [place] [address] Glucose [Mass/Vol] 181 mg/dL High 70-105 [facility] Comment on above: Order Comment: Waive d Testing in the ED is performed under the ED CLIA certificate #[id number]. Result Comment: [email or web address] Performed By: #### L [id number] ####[facility] ([facility])[address] [place] [address] Glucose [Mass/Vol] 221 mg/dL High 70-105 [facility] Comment on above: Order Comment: Waive d Testing in the ED is performed under the ED CLIA certificate #[id number]. Result Comment: clum an Performed By: #### L [id number] ####[facility] ([facility])[address] [place] [address] Glucose [Mass/Vol] 166 mg/dL High 70-105 [facility] Comment on above: Order Comment: Waive d Testing in the ED is performed under the ED CLIA certificate #[id number]. Result Comment: clum an Performed By: #### L [id number] ####[facility] ([facility])[address] [place] [address] Glucose [Mass/Vol] 152 mg/dL High 70-105 [facility] Comment on above: Order Comment: Waive d Testing in the ED is performed under the ED CLIA certificate #[id number]. Result Comment: clum an Performed By: #### L [id number] ####[facility] ([facility])[address] [place] [address] Glucose [Mass/Vol] 154 mg/dL High 70-105 [facility] Comment on above: Order Comment: Waive d Testing in the ED is performed under the ED CLIA certificate #[id number]. Result Comment: cdav ies Performed By: #### L [id number] ####[facility] ([facility])[address] [place] [address] Glucose [Mass/Vol] 153 mg/dL High 70-105 [facility] Comment on above: Order Comment: Waive d Testing in the ED is performed under the ED CLIA certificate #[id number]. Result Comment: [email or web address] Performed By: #### L [id number] ####[facility] ([facility])[address] [place] [address] Glucose [Mass/Vol] 160 mg/dL High 70-105 [facility] Comment on above: Order Comment: Waive d Testing in the ED is performed under the ED CLIA certificate #[id number]. Result Comment: cdav ies Performed By: #### L [id number] ####[facility] ([facility])[address] [place] [address] Glucose [Mass/Vol] 147 mg/dL High 70-105 [facility] Comment on above: Order Comment: Waive d Testing in the ED is performed under the ED CLIA certificate #[id number]. Result Comment: cdav ies Performed By: #### L [id number] ####[facility] ([facility])[address] [place] [address] Glucose [Mass/Vol] 129 mg/dL High 70-105 [facility] Comment on above: Order Comment: Waive d Testing in the ED is performed under the ED CLIA certificate #[id number]. Result Comment: cdav ies Performed By: #### L [id number] ####[facility] ([facility])[address] [place] [address] Glucose [Mass/Vol] 136 mg/dL High 70-105 [facility] Comment on above: Order Comment: Waive d Testing in the ED is performed under the ED CLIA certificate #[id number]. Result Comment: cdav ies Performed By: #### L [id number] ####[facility] ([facility])[address] [place] [address] Glucose [Mass/Vol] 147 mg/dL High 70-105 [facility] Comment on above: Order Comment: Waive d Testing in the ED is performed under the ED CLIA certificate #[id number]. Result Comment: cdav ies Performed By: #### L [id number] ####[facility] ([facility])[address] [address] Glucose [Mass/Vol] 161 mg/dL High 70-105 [facility] Comment on above: Order Comment: Waive d Testing in the ED is performed under the ED CLIA certificate #[id number]. Result Comment: cdav ies Performed By: #### L [id number] ####[facility] ([facility])[address] [place] [address] 30on 12-16-2023 30 Normal [facility] 30 Normal [facility] ANESon 12-16-2023 ANES [facility] ANTI-XA (HEPARIN LEVEL)on HEPARIN UNFRACTIONATED (U/ML) IN PPP BY CHROMOGENIC METHOD <0.10 Invalid Interpretation Code 0.3-0.7 [facility] Comment on above: Result Comment: Rosa roxaban and Apixaban will interfere with the anti Xa assay used to monitor UFH and LMWH. Performed By: #### L [id number] ####[facility] ([facility])[address] [place] [address] APTTon 12-16-2023 ACTIVATED PARTIAL THROMBOPLASTIN TIME IN PPP BY COAGULATION ASSAY 27.7 Seconds Normal 25.0-35.0 [facility] Comment on above: Result Comment: Clin ical significance of the APTT is questionable in the presence of heparin. Performed By: #### L [id number] ####[facility] ([facility])[address] [facility] [address] BASIC METABOLIC PANELon 11-23 Anion gap [Moles/Vol] 10 mmol/L Normal 7-20 [facility] Comment on above: Performed By: #### L [id number] ####[facility] ([facility])[address] [facility] [address] Calcium [Mass/Vol] 8.5 mg/dL Low 8.6-10.3 [facility] Comment on above: Performed By: #### L [id number] ####[facility] ([facility])[address] [place] [address] Chloride [Moles/Vol] 108 mmol/L High 98-[address] [facility] Comment on above: Performed By: #### L [id number] ####[facility] ([facility])[address] [place] [address] CO2 [Moles/Vol] 27 mmol/L Normal 21-31 [facility] Comment on above: Performed By: #### L [id number] ####[facility] [place] [address] Creatinine [Mass/Vol] 0.80 mg/dL Normal 0.60-1.20 [facility] Comment on above: Performed By: #### L [id number] ####[facility] ([facility])[address] [place] [address] GLOMERULAR FILTRATION RATE ML/MIN/1.73 SQ M.PREDICTED 83.3 mL/min/1.73m*2 Normal >60.0 [facility] Comment on above: Result Comment: The [facility]???s estimated glomerular filtration rate (eGFR) will no [...] of individuals. Performed By: #### L [id number] ####[facility] ([facility])[address] [place] [address] Glucose [Mass/Vol] 159 mg/dL High 70-100 [facility] Comment on above: Performed By: #### L [id number] ####[facility] ([facility])[address] [place] [address] Potassium [Moles/Vol] 4.3 mmol/L Normal 3.5-5.1 [facility] Comment on above: Performed By: #### L [id number] ####[facility] [place] [address] Sodium [Moles/Vol] 141 mmol/L Normal 136-145 [facility] Comment on above: Performed By: #### L [id number] ####[facility] [facility] [place], [place] [address] Urea nitrogen [Mass/Vol] 15 mg/dL Normal 7-25 [facility] Comment on above: Performed By: #### L [id number] ####[facility] ([facility])[address] [place], [place] [address] UREA NITROGEN/CREATININE (MASS RATIO) IN SER/PLAS 18.8 Normal [facility] Comment on above: Performed By: #### L [id number] ####[facility] ([facility] [place] [address] CBCon 12-16-2023 Erythrocyte distribution width (RBC) [Ratio] 13.0 % Normal 11.5-15.0 [facility] Comment on above: Performed By: #### L [id number] ####[facility] ([facility] [place] [address] ERYTHROCYTE MEAN CORPUSCULAR HEMOGLOBIN CONCENTRATION (G/DL) BY AUTOMATED 33.7 g/dL Normal 32.0-35.0 [facility] Comment on above: Performed By: #### L [id number] ####[facility] ([facility] [place], [place] [address] Hematocrit (Bld) [Volume fraction] 24.3 % Low 36.0-48.0 [facility] Comment on above: Performed By: #### L [id number] ####[facility] ([facility])[address] [place], [place] [address] Hemoglobin (Bld) [Mass/Vol] 8.2 g/dL Low 12.0-15.0 [facility] Comment on above: Performed By: #### L [id number] ####[facility] ([facility] [place] [place] [address] MCH (RBC) [Entitic mass] 31.1 pg Normal 27.0-33.0 [facility] Comment on above: Performed By: #### L [id number] ####[facility] ([facility] [place] [address] [address] MCV (RBC) [Entitic vol] 92.0 fL Normal 82.0-98.0 [facility] Comment on above: Performed By: #### L [id number] ####[facility] ([facility])[address] [place] [place] [address] PLATELETS (10*3/UL) IN BLOOD AUTOMATED COUNT 130 10*3/uL Low 150-400 [facility] Comment on above: Performed By: #### L [id number] ####[facility] ([facility])[address] [place] [place] [address] RBC (Bld) [#/Vol] 2.64 10*6/uL Low 3.80-5.00 [facility] Comment on above: Performed By: #### L [id number] ####[facility] ([facility])[address] [place] [place] [address] WBC (Bld) [#/Vol] 6.53 10*3/uL Normal 4.00-10.60 [facility] Comment on above: Performed By: #### L [id number] ####[facility] ([facility])[address] [place] [place] [address] CONSULTon 12-16-2023 CONSULT Normal [facility] MAGNESIUMon 12-16-2023 Magnesium [Mass/Vol] 2.2 mg/dL Normal 1.9-2.[address] [facility] Comment on above: Performed By: #### L [id number] ####[facility] ([facility])[address] [place] [place] [address] PHOSPHORUSon 12-16-2023 Magnesium [Mass/Vol] 3.6 mg/dL Normal 2.5-5.[address] [facility] Comment on above: Performed By: #### L [id number] ####[facility] ([facility])[address] [place] [address] POCT GLUCOSE METER UNSOLICIT ED RESULTSon 12-16-2023 Glucose [Mass/Vol] 163 mg/dL High 70-105 [facility] Comment on above: Order Comment: Waive d Testing in the ED is performed under the ED CLIA certificate #[id number]. Result Comment: cdav ies Performed By: #### L [id number] ####[facility] ([facility])[address] [place] [address] Glucose [Mass/Vol] 138 mg/dL High 70-105 [facility] Comment on above: Order Comment: Waive d Testing in the ED is performed under the ED CLIA certificate #[id number]. Result Comment: cdav ies Performed By: #### L [id number] ####[facility] ([facility])[address] [place] [address] Glucose [Mass/Vol] 105 mg/dL Normal 70-105 [facility] Comment on above: Order Comment: Waive d Testing in the ED is performed under the ED CLIA certificate #[id number]. Result Comment: cdav ies Performed By: #### L [id number] ####[facility] ([facility])[address] [place] [address] Glucose [Mass/Vol] 77 mg/dL Normal 70-105 [facility] Comment on above: Order Comment: Waive d Testing in the ED is performed under the ED CLIA certificate #[id number]. Result Comment: cdav ies Performed By: #### L [id number] ####[facility] ([facility])[address] [place] [address] Glucose [Mass/Vol] 128 mg/dL High 70-105 [facility] Comment on above: Order Comment: Waive d Testing in the ED is performed under the ED CLIA certificate #[id number]. Result Comment: tlin dle2 Performed By: #### L [id number] ####[facility] ([facility])[address] [place] [address] Glucose [Mass/Vol] 155 mg/dL High 70-105 [facility] Comment on above: Order Comment: Waive d Testing in the ED is performed under the ED CLIA certificate #[id number]. Result Comment: tlin [email or web address] Performed By: #### L [id number] ####[facility] ([facility])[address] [place] [address] Glucose [Mass/Vol] 160 mg/dL High 70-105 [facility] Comment on above: Order Comment: Waive d Testing in the ED is performed under the ED CLIA certificate #[id number]. Result Comment: tlin dle2 Performed By: #### L [id number] ####[facility] ([facility])[address] [place] [address] Glucose [Mass/Vol] 126 mg/dL High 70-105 [facility] Comment on above: Order Comment: Waive d Testing in the ED is performed under the ED CLIA certificate #[id number]. Result Comment: [email or web address] [email or web address] Performed By: #### L [id number] ####[facility] ([facility])[address] [place] [address] Glucose [Mass/Vol] 125 mg/dL High 70-105 [facility] Comment on above: Order Comment: Waive d Testing in the ED is performed under the ED CLIA certificate #[id number]. Result Comment: tlin dle2 Performed By: #### L [id number] ####[facility] ([facility])[address] [place] [address] Glucose [Mass/Vol] 173 mg/dL High 70-105 [facility] Comment on above: Order Comment: Waive d Testing in the ED is performed under the ED CLIA certificate #[id number]. Result Comment: tlin [email or web address] Performed By: #### L [id number] ####[facility] ([facility])[address] [place] [address] Glucose [Mass/Vol] 160 mg/dL High 70-105 [facility] Comment on above: Order Comment: Waive d Testing in the ED is performed under the ED CLIA certificate #[id number]. Result Comment: tlin [email or web address] Performed By: #### L [id number] ####[facility] ([facility])[address] [place] [address] Glucose [Mass/Vol] 189 mg/dL High 70-105 [facility] Comment on above: Order Comment: Waive d Testing in the ED is performed under the ED CLIA certificate #[id number]. Result Comment: tlin [email or web address] Performed By: #### L [id number] ####[facility] ([facility])[address] [place] [address] Glucose [Mass/Vol] 172 mg/dL High 70-105 [facility] Comment on above: Order Comment: Waive d Testing in the ED is performed under the ED CLIA certificate #[id number]. Result Comment: tlin [email or web address] Performed By: #### L [id number] ####[facility] ([facility])[address] [place] [address] Glucose [Mass/Vol] 188 mg/dL High 70-105 [facility] Comment on above: Order Comment: Waive d Testing in the ED is performed under the ED CLIA certificate #[id number]. Result Comment: tlin [email or web address] Performed By: #### L [id number] ####[facility] ([facility])[address] [place] [address] Glucose [Mass/Vol] 192 mg/dL High 70-105 [facility] Comment on above: Order Comment: Waive d Testing in the ED is performed under the ED CLIA certificate #[id number]. Result Comment: kwag [email or web address] Performed By: #### L [id number] ####[facility] ([facility])[address] [place] [address] Glucose [Mass/Vol] 233 mg/dL High 70-105 [facility] Comment on above: Order Comment: Waive d Testing in the ED is performed under the ED CLIA certificate #[id number]. Result Comment: cdav ies Performed By: #### L [id number] ####[facility] ([facility])[address] [place] [address] Glucose [Mass/Vol] 198 mg/dL High 70-105 [facility] Comment on above: Order Comment: Waive d Testing in the ED is performed under the ED CLIA certificate #[id number]. Result Comment: cdav ies Performed By: #### L [id number] ####[facility] ([facility])[address] [place] [address] Glucose [Mass/Vol] 193 mg/dL High 70-105 [facility] Comment on above: Order Comment: Waive d Testing in the ED is performed under the ED CLIA certificate #[id number]. Result Comment: cdav ies Performed By: #### L [id number] ####[facility] ([facility])[address] [place] [address] Glucose [Mass/Vol] 186 mg/dL High 70-105 [facility] Comment on above: Order Comment: Waive d Testing in the ED is performed under the ED CLIA certificate #[id number]. Result Comment: cdav ies Performed By: #### L [id number] ####[facility] ([facility])[address] [place] [address] Glucose [Mass/Vol] 208 mg/dL High 70-105 [facility] Comment on above: Order Comment: Waive d Testing in the ED is performed under the ED CLIA certificate #[id number]. Result Comment: cdav ies Performed By: #### L [id number] ####[facility] ([facility])[address] [place] [address] Glucose [Mass/Vol] 188 mg/dL High 70-105 [facility] Comment on above: Order Comment: Waive d Testing in the ED is performed under the ED CLIA certificate #[id number]. Result Comment: cdav ies Performed By: #### L [id number] ####[facility] ([facility])[address] [place] [address] Glucose [Mass/Vol] 177 mg/dL High 70-105 [facility] Comment on above: Order Comment: Waive d Testing in the ED is performed under the ED CLIA certificate #[id number]. Result Comment: cdav ies Performed By: #### L [id number] ####[facility] ([facility])[address] [place] [address] PROTIME-INRon 12-16-2023 INR IN PPP BY COAGULATION ASSAY 1.19 High 0.90-1.10 [facility] Comment on above: Result Comment: ACCC P [...] CHEST 1995;108:231S-246S. Performed By: #### L [id number] ####[facility] ([facility] [place])[address] [place] [address] PROTHROMBIN TIME (PT) IN PPP BY COAGULATION ASSAY 15.0 Seconds High 12.3-14.8 [facility] Comment on above: Performed By: #### L [id number] ####[facility] ([facility])[address] [place] [address] 30on 12-15-2023 30 Normal [facility] ARTERIAL BLOOD GAS WITH IONI ZED CALCIUMon 12-15-2023 Base excess Calc (Bld) [Moles/Vol] -2.2000 mmol/L Low -2.0-3.0 [facility] Comment on above: Performed By: #### L [id number] ####[facility] [id number] [place] [address] [facility] CALCIUM IONIZED (MMOL/L) IN BLOOD 1.22 mmol/L Normal 1.15-1.33 [facility] Comment on above: Performed By: #### L [id number] ####[facility] [id number] [place] [address] [facility] CO2 (Bld) [Partial pressure] 37 mm[Hg] Normal 35-48 [facility] Comment on above: Performed By: #### L [id number] ####[facility] RESPIR[facility] [id number] [place] [address] [facility] HCO3 (Bld) [Moles/Vol] 22.4 mmol/L Normal 21.0-28.0 [facility] Comment on above: Performed By: #### L [id number] ####[facility]PIR[facility] [id number] [place] [address] [facility] LPM 3 Normal [facility] Comment on above: Performed By: #### L [id number] ####[facility] [id number] [place] [address] [facility] Oxygen (Bld) [Partial pressure] 106 mm[Hg] High 83-100 [facility] Comment on above: Performed By: #### L [id number] ####[facility] [id number] [place] [address] [facility] OXYGEN SATURATION (%) IN ARTERIAL BLOOD 99.0 % High 94.0-98.0 [facility] Comment on above: Performed By: #### L [id number] ####[facility] RESPIRATORY [id number] [place] [address] [facility] pH (Bld) 7.39 [pH] Normal 7.35-7.45 [facility] Comment on above: Performed By: #### L [id number] ####[facility] RESPIR[facility] [id number] [place] [address] [place] SOURCE OF OXYGEN Nasal cannula Normal [facility] Comment on above: Performed By: #### L [id number] ####[facility] RESPIRATORY [id number] [place] [address] [facility] POCT GLUCOSE METER UNSOLICIT ED RESULTSon 12-15-2023 Glucose [Mass/Vol] 171 mg/dL High 70-105 [facility] Comment on above: Order Comment: Waive d Testing in the ED is performed under the ED CLIA certificate #[id number]. Result Comment: cdav ies Performed By: #### L [id number] ####[facility] ([facility])[address] [facility] [place] [address] Glucose [Mass/Vol] 184 mg/dL High 70-105 [facility] Comment on above: Order Comment: Waive d Testing in the ED is performed under the ED CLIA certificate #[id number]. Result Comment: cdav ies Performed By: #### L [id number] ####[facility] ([facility] [facility] [place] [address] Glucose [Mass/Vol] 166 mg/dL High 70-105 [facility] Comment on above: Order Comment: Waive d Testing in the ED is performed under the ED CLIA certificate #[id number]. Result Comment: cdav ies Performed By: #### L [id number] ####[facility] ([facility])[address] [facility] [place] [address] Glucose [Mass/Vol] 145 mg/dL High 70-105 [facility] Comment on above: Order Comment: Waive d Testing in the ED is performed under the ED CLIA certificate #[id number]. Result Comment: cdav ies Performed By: #### L [id number] ####[facility] ([facility])[address] [place] [address] BNP ser/plasOrdered By: Maylin mcknight Melanie on 12-04-2023 Natriuretic peptide B (Bld) [Mass/Vol] 648.0 pg/mL High 5-100 [facility] Comment on above: Result Comment: PERF ORMED BY: [place] [address] PATHOLOGIST [employer] M.D. Performed By: #### V ITD+D2+D3, THYROID PROF II #### [facility] , #### CMP, CBC #### [facility] [address] [place] [address] [place] Troponin I High Sensitivityo n 12-04-2023 Troponin I High Sensitivity 36.1 pg/mL High 0.0-15.0 [facility] Comment on above: Result Comment: PERF ORMED BY: [place] [address] PATHOLOGIST [employer] M.D. Performed By: #### V ITD+D2+D3, THYROID PROF II #### [facility] , #### CMP, CBC #### [facility] [address] [place] [address] [place] Troponin I.cardiac [Mass/vol ume] in Serum or Plasma by Detection limit <= 0.01 ng/Ordered By: Gale Navarro on 12-04-2023 Troponin I.cardiac DL <= 0.01 ng/mL [Mass/Vol] 36.1 pg/mL High 0.0-15.0 [facility] Alanine aminotransferase [En zymatic activity/volume] in Serum or PlasmaOrdered By: Barby Chen on 12-02-2023 ALT [Catalytic activity/Vol] 15 U/L [facility] Comment on above: Performed By: #### E SR, CBC, CMP #### [facility] [address] [place] [address] [place] Albumin [Mass/volume] in Ser um or Plasma by Bromocresol green (BCG) dye binding methoOrdered By: Barby Chen on 12-02-2023 Albumin BCG dye [Mass/Vol] 4.3 g/dL 3.5-5.7 [facility] Alkaline phosphatase [Enzyma tic activity/volume] in Serum or PlasmaOrdered By: Barby Chen on 12-02-2023 ALP [Catalytic activity/Vol] 87 U/L 34-104 [facility] Comment on above: Result Comment: PERF ORMED BY: [place] [address] PATHOLOGIST [employer] M.D. Performed By: #### E SR, CBC, CMP #### [address] Aspartate aminotransferase [ Enzymatic activity/volume] in Serum or PlasmaOrdered By: Barby Chen on 12-02-2023 AST [Catalytic activity/Vol] 20 U/L 13-39 [facility] Comment on above: Performed By: #### E SR, CBC, CMP #### [address] Automated basophil %Ordered By: Barby Chen on 12-02-2023 Basophils/100 WBC (Bld) 0.9 % . [facility] Comment on above: Performed By: #### E SR, CBC, CMP #### [address] Automated basophil countOrde red By: Barby Chen on 12-02-2023 Basophils (Bld) [#/Vol] 0.1 10*3/uL 0.0-0.2 [facility] Comment on above: Performed By: #### E SR, CBC, CMP #### [address] Automated blood monocyte cou ntOrdered By: Barby Chen on 12-02-2023 Monocytes (Bld) [#/Vol] 0.5 10*3/uL 0.0-0.8 [facility] Comment on above: Performed By: #### E SR, CBC, CMP #### [address] Automated eosinophil %Ordere d By: Barby Chen on 12-02-2023 Eosinophils/100 WBC (Bld) 0.1 % . [facility] Comment on above: Performed By: #### E SR, CBC, CMP #### [facility] [address] Automated eosinophil countOr dered By: Barby Chen on 12-02-2023 Eosinophils (Bld) [#/Vol] 0.0 10*3/uL 0.0-0.45 [facility] Comment on above: Performed By: #### E SR, CBC, CMP #### [facility] [address] Automated monocyte %Ordered By: Barby Chen on 12-02-2023 Monocytes/100 WBC (Bld) 6.3 % . [facility] Comment on above: Performed By: #### E SR, CBC, CMP #### [facility] [address] Automated neutrophil %Ordere d By: Barby Chen on 12-02-2023 Neutrophils/100 WBC (Bld) 77.8 % . [facility] Comment on above: Performed By: #### E SR, CBC, CMP #### [facility] [address] Bilirubin.total [Mass/volume ] in Serum or PlasmaOrdered By: Barby Chen on 12-02-2023 Bilirubin [Mass/Vol] 0.6 mg/dL 0.3-1.0 [facility] Comment on above: Performed By: #### E SR, CBC, CMP #### [facility] [address] Calcium [Mass/volume] in Ser um or PlasmaOrdered By: Barby Chen on 12-02-2023 Calcium [Mass/Vol] 9.5 mg/dL 8.6-10.3 [facility] Comment on above: Performed By: #### E SR, CBC, CMP #### [facility] [address] Carbon dioxide, total [Moles /volume] in Serum or PlasmaOrdered By: Barby Chen on 12-02-2023 CO2 [Moles/Vol] 27.8 mmol/L 21.0-31.0 [facility] Comment on above: Performed By: #### E SR, CBC, CMP #### [address] Chloride [Moles/volume] in S davi or PlasmaOrdered By: Barby Chen on 12-02-2023 Chloride [Moles/Vol] 98 mmol/L 98-107 [facility] Comment on above: Performed By: #### E SR, CBC, CMP #### [address] Complete Blood Count Auto Di ffon 12-02-2023 Mean Corpuscular HGB Conc 34.7 g/dL Normal 32.0-35.0 [facility] Comment on above: Performed By: #### E SR, CBC, CMP #### [address] NRBC% 0.1 /100{WBC} Normal 0-0.5 [facility] Comment on above: Performed By: #### E SR, CBC, CMP #### [address] Comprehensive Metabolic Pane kirit 12-02-2023 Albumin [Mass/Vol] 4.3 g/dL Normal 3.5-5.7 [facility] Comment on above: Performed By: #### E SR, CBC, CMP #### [place] [address] [place] GFR/1.73 sq M.predicted MDRD (S/P/Bld) [Vol rate/Area] mL/min/{1.73_m2} Normal [facility] Comment on above: Performed By: #### E SR, CBC, CMP #### [address] Creatinine [Mass/volume] in Serum or PlasmaOrdered By: Barby Chen on 12-02-2023 Creatinine [Mass/Vol] 0.88 mg/dL 0.60-1.20 [facility] Comment on above: Performed By: #### E SR, CBC, CMP #### [address] Erythrocyte Sedimentation Ra antonio 12-02-2023 ESR (Bld) [Velocity] 37 mm/h High 0-29 [facility] Comment on above: Result Comment: PERF ORMED BY: [place] [address] PATHOLOGIST [employer] M.D. Performed By: #### V ITD+D2+D3, THYROID PROF II #### [facility] , #### CMP, CBC #### [address] Erythrocyte distribution wid th [Ratio] by Automated countOrdered By: Barby Chen on 12-02-2023 Erythrocyte distribution width (RBC) [Ratio] 13.3 % 11.9-15.3 [facility] Comment on above: Performed By: #### E SR, CBC, CMP #### [address] Erythrocyte sedimentation ra te by Photometric methodOrdered By: Barby Chen on 12-02-2023 ESR Photometric method (Bld) [Velocity] 37 mm/hr High 0-29 [facility] Erythrocytes [#/volume] in B lood by Automated countOrdered By: Barby Chen on 12-02-2023 RBC (Bld) [#/Vol] 4.97 10*6/uL 3.60-5.00 [facility] Comment on above: Performed By: #### E SR, CBC, CMP #### [address] Glucose [Mass/volume] in Ser um or PlasmaOrdered By: Barby Chen on 12-02-2023 Glucose [Mass/Vol] 126 mg/dL High 70-100 [facility] Comment on above: ADA recommended refe rence rangeRandom Glucose Reference Range is dependent on time and content of last meal. Glucose of more than 200 mg/dL in a nonstressed, ambulatory subject supports the diagnosis of Diabetes Mellitus. Result Comment: [place] om Glucose Reference Range is dependent on time and content of last meal. Glucose of more than 200 mg/dL in a nonstressed, ambulatory subject supports the diagnosis of Diabetes Mellitus. ADA recommended reference range Performed By: #### E SR, CBC, CMP #### [address] Hematocrit [Volume Fraction] of Blood by Automated countOrdered By: Baryb Chen on 12-02-2023 Hematocrit (Bld) [Volume fraction] 45.3 % 34.0-46.4 [facility] Comment on above: Performed By: #### E SR, CBC, CMP #### [address] Hemoglobin [Mass/volume] in BloodOrdered By: Barby Chen on 12-02-2023 Hemoglobin (Bld) [Mass/Vol] 15.7 g/dL High 11.8-15.4 [facility] Comment on above: Performed By: #### E SR, CBC, CMP #### [address] Leukocytes [#/volume] correc chantelle for nucleated erythrocytes in Blood by Automated counOrdered By: Barby Chne on 12-02-2023 WBC corrected for nucl RBC Auto (Bld) [#/Vol] 7.9 10*3/uL 3.8-11.6 [facility] Leukocytes [#/volume] in Blo od by Automated countOrdered By: Barby Chen on 12-02-2023 WBC (Bld) [#/Vol] 7.9 10*3/uL 3.8-11.6 [facility] Comment on above: Performed By: #### E SR, CBC, CMP #### [place] [address] [place] Lymphocytes [#/volume] in Bl ood by Automated countOrdered By: Barby Chen on 12-02-2023 Lymphocytes (Bld) [#/Vol] 1.2 10*3/uL 1.00-4.8 [facility] Comment on above: Performed By: #### E SR, CBC, CMP #### [address] Lymphocytes/100 leukocytes i n Blood by Automated countOrdered By: Barby Chen on 12-02-2023 Lymphocytes/100 WBC (Bld) 14.9 % . [facility] Comment on above: Performed By: #### E SR, CBC, CMP #### [address] MCH [Entitic mass] by Automa chantelle countOrdered By: Barby Chen on 12-02-2023 MCH (RBC) [Entitic mass] 31.6 pg 24.7-34.3 [facility] Comment on above: Performed By: #### E SR, CBC, CMP #### [address] MCHC Auto (RBC) [Mass/Vol]Or dered By: Barby Chen on 12-02-2023 MCHC (RBC) [Mass/Vol] 34.7 g/dL 32.0-35.0 [facility] MCV [Entitic volume] by Auto mated countOrdered By: Barby Chen on 12-02-2023 MCV (RBC) [Entitic vol] 91.1 fL 80-100 [facility] Comment on above: Performed By: #### E SR, CBC, CMP #### [address] Neutrophils [#/volume] in Bl ood by Automated countOrdered By: Barby Chen on 12-02-2023 Neutrophils (Bld) [#/Vol] 6.2 10*3/uL 1.8-7.7 [facility] Comment on above: Performed By: #### E SR, CBC, CMP #### [address] No Panel InformationOrdered By: Barby Chen on 12-02-2023 Estimated GFR (CKD-EPI) > 60.0 mL/Min [facility] Creatinine Clearance (Chem N/A [facility] Nucleated erythrocytes [Pres ence] in Blood by Automated countOrdered By: Barby Chen on 12-02-2023 Nucleated RBC Auto Ql (Bld) 0.1 /100{WBC} 0-0.5 [facility] Platelet mean volume [Entiti c volume] in Blood by Automated countOrdered By: Barby Chen on 12-02-2023 Platelet mean volume (Bld) [Entitic vol] 7.6 fL 6.3-10.7 [facility] Comment on above: Performed By: #### E SR, CBC, CMP #### [facility] [address] [place] [address] Platelets [#/volume] in Bloo d by Automated countOrdered By: Barby Chen on 12-02-2023 Platelets (Bld) [#/Vol] 301 10*3/uL 150-450 [facility] Comment on above: Performed By: #### E SR, CBC, CMP #### [facility] [address] [place] [address] [place] Potassium [Moles/volume] in Serum or PlasmaOrdered By: Barby Chen on 12-02-2023 Potassium [Moles/Vol] 4.4 mmol/L 3.5-5.1 [facility] Comment on above: Performed By: #### E SR, CBC, CMP #### [facility] [address] [place] [address] [place] Protein [Mass/volume] in Ser um or PlasmaOrdered By: Barby Chen on 12-02-2023 Protein [Mass/Vol] 7.3 g/dL 6.4-8.9 [facility] Comment on above: Performed By: #### E SR, CBC, CMP #### [facility] [address] [place] [address] Serum globulin measurement b y calculation (mass/volume)Ordered By: Barby Chen on 12-02-2023 Globulin (S) [Mass/Vol] 3.0 g/dL [facility] Comment on above: Performed By: #### E SR, CBC, CMP #### [facility] [address] [place] [address] Serum or plasma albumin/glob ulin mass ratioOrdered By: Barby Chen on 12-02-2023 Albumin/Globulin [Mass ratio] 1.4 {ratio} [facility] Comment on above: Performed By: #### E SR, CBC, CMP #### [address] Serum or plasma anion gap de terminationOrdered By: Barby Chen on 12-02-2023 Anion gap [Moles/Vol] 9.6 mmol/L 6.0-15.0 [facility] Comment on above: Performed By: #### E SR, CBC, CMP #### [address] Sodium [Moles/volume] in Ser um or PlasmaOrdered By: Barby Chen on 12-02-2023 Sodium [Moles/Vol] 131 mmol/L Low 136-145 [facility] Comment on above: Performed By: #### E SR, CBC, CMP #### [address] Urea nitrogen [Mass/volume] in Serum or PlasmaOrdered By: Barby Chen on 12-02-2023 Urea nitrogen [Mass/Vol] 9 mg/dL 7-25 [facility] Comment on above: Performed By: #### E SR, CBC, CMP #### [facility] [address] [place] [address] A1C with Estimated Average G rafin 11-03-2023 Glucose [Mass/Vol] 123 mg/dL Normal [facility] Comment on above: Result Comment: PERF ORMED BY: [place] [address] PATHOLOGIST [employer] M.D. Performed By: #### V ITD+D2+D3, THYROID PROF II #### [facility] , #### CMP, CBC #### [facility] [address] [place] [address] Alanine aminotransferase [En zymatic activity/volume] in Serum or PlasmaOrdered By: Anibal Chaudhary on 11-03-2023 ALT [Catalytic activity/Vol] 12 U/L 7-52 [facility] Comment on above: Performed By: #### V ITD+D2+D3, THYROID PROF II #### [facility] , #### CMP, CBC #### [facility] [address] [place] [address] [place] Albumin [Mass/volume] in Ser um or Plasma by Bromocresol green (BCG) dye binding methoOrdered By: Anibal Chaudhary on 11-03-2023 Albumin BCG dye [Mass/Vol] 4.2 g/dL 3.5-5.7 [facility] Alkaline phosphatase [Enzyma tic activity/volume] in Serum or PlasmaOrdered By: Anibal Chaudhary on 11-03-2023 ALP [Catalytic activity/Vol] 79 U/L 34-104 [facility] Comment on above: Performed By: #### V ITD+D2+D3, THYROID PROF II #### [facility] , #### CMP, CBC #### [facility] [address] [place] [address] [place] Aspartate aminotransferase [ Enzymatic activity/volume] in Serum or PlasmaOrdered By: Anibal Chaudhary on 11-03-2023 AST [Catalytic activity/Vol] 16 U/L 13-39 [facility] Comment on above: Performed By: #### V ITD+D2+D3, THYROID PROF II #### [facility] , #### CMP, CBC #### [facility] [address] [place] [address] [place] Bilirubin.total [Mass/volume ] in Serum or PlasmaOrdered By: Anibal Chaudhary on 11-03-2023 Bilirubin [Mass/Vol] 0.5 mg/dL 0.3-1.0 [facility] Comment on above: Performed By: #### V ITD+D2+D3, THYROID PROF II #### [facility] , #### CMP, CBC #### [facility] [address] [place] [address] [place] Calcium [Mass/volume] in Ser um or PlasmaOrdered By: Anibal Chaudhary on 11-03-2023 Calcium [Mass/Vol] 9.1 mg/dL 8.6-10.3 [facility] Comment on above: Performed By: #### V ITD+D2+D3, THYROID PROF II #### [facility] , #### CMP, CBC #### [facility] [address] [place] [address] Carbon dioxide, total [Moles /volume] in Serum or PlasmaOrdered By: Anibal Chaudhary on 11-03-2023 CO2 [Moles/Vol] 26.2 mmol/L 21.0-31.0 [facility] Comment on above: Performed By: #### V ITD+D2+D3, THYROID PROF II #### [facility] , #### CMP, CBC #### [facility] [address] [place] [address] [place] Chloride [Moles/volume] in S davi or PlasmaOrdered By: Anibal Chaudhary on 11-03-2023 Chloride [Moles/Vol] 101 mmol/L 98-107 [facility] Comment on above: Performed By: #### V ITD+D2+D3, THYROID PROF II #### [facility] , #### CMP, CBC #### [facility] [address] [place] [address] [place] Cholesterol [Mass/volume] in Serum or PlasmaOrdered By: Anibal Chaudhary on 11-03-2023 Cholesterol [Mass/Vol] 162 mg/dL 140-200 [facility] Comment on above: Chol less than 200 m g/dl low riskChol 201-239 mg/dl borderline riskChol 240 mg/dl and greater high risk Result Comment: Chol less than 200 mg/dl low risk Chol 201-239 mg/dl borderline risk Chol 240 mg/dl and greater high risk Performed By: #### V ITD+D2+D3, THYROID PROF II #### [facility] , #### CMP, CBC #### [facility] [address] [place] [address] [place] Cholesterol in LDL Calc [Mas s/Vol]Ordered By: Anibal Chaudhary on 11-03-2023 Cholesterol in LDL [Mass/Vol] 86 mg/dL 0-100 [facility] Comment on above: LDL ATP III CLASSIFI CATIONLDL less than 100 mg/dL OptimalLDL 100-129 mg/dL Near or above optimalLDL 130-159 mg/dL Borderline highLDL 160-189 mg/dL HighLDL greater than 189 mg/dL Very high Cholesterol in VLDL Calc [Ma ss/Vol]Ordered By: Anibal Chaudhary on 11-03-2023 Cholesterol in VLDL [Mass/Vol] 20 mg/dL [facility] Comprehensive Metabolic Pane kirit 11-03-2023 Albumin [Mass/Vol] 4.2 g/dL Normal 3.5-5.7 [facility] Comment on above: Performed By: #### V ITD+D2+D3, THYROID PROF II #### [facility] , #### CMP, CBC #### [facility] [address] [place] [address] [place] GFR/1.73 sq M.predicted MDRD (S/P/Bld) [Vol rate/Area] mL/min/{1.73_m2} Normal [facility] Comment on above: Performed By: #### V ITD+D2+D3, THYROID PROF II #### [facility] , #### CMP, CBC #### [facility] [address] [place] [address] [place] Creatinine [Mass/volume] in Serum or PlasmaOrdered By: Anibal Chaudhary on 11-03-2023 Creatinine [Mass/Vol] 0.94 mg/dL 0.60-1.20 [facility] Comment on above: Performed By: #### V ITD+D2+D3, THYROID PROF II #### [facility] , #### CMP, CBC #### [facility] [address] [place] [id number] [place] Glucose [Mass/volume] in Ser um or PlasmaOrdered By: Anibal Chaudhary on 11-03-2023 Glucose [Mass/Vol] 130 mg/dL High 70-100 [facility] Comment on above: ADA recommended refe rence rangeRandom Glucose Reference Range is dependent on time and content of last meal. Glucose of more than 200 mg/dL in a nonstressed, ambulatory subject supports the diagnosis of Diabetes Mellitus. Result Comment: [place] om Glucose Reference Range is dependent on time and content of last meal. Glucose of more than 200 mg/dL in a nonstressed, ambulatory subject supports the diagnosis of Diabetes Mellitus. ADA recommended reference range Performed By: #### V ITD+D2+D3, THYROID PROF II #### [facility] , #### CMP, CBC #### [facility] [address] [place] [address] [facility] Glucose mean value [Mass/vol ume] in Blood Estimated from glycated hemoglobinOrdered By: Anibal Chaudhary on 11-03-2023 Average glucose Estimated from glycated hemoglobin (Bld) [Mass/Vol] 123 mg/dL [facility] Hemoglobin A1c percentageOrd ered By: Anibal Chaudhary on 11-03-2023 HbA1c (Bld) [Mass fraction] 5.9 % High 4.3-5.6 [facility] Comment on above: Increased risk for d iabetes: 5.7 - 6.4diabetes: >6.4glycemic control for adults with diabetes: <7.0 Result Comment: Incr eased risk for diabetes: 5.7 - 6.4 diabetes: >6.4 glycemic control for adults with diabetes: <7.0 Performed By: #### V ITD+D2+D3, THYROID PROF II #### [facility] , #### CMP, CBC #### [facility] [address] [place] [address] [facility] Lipid Panelon 11-03-2023 LDL Cholesterol,Calculated 86 mg/dL [...] #### [facility] , #### CMP, CBC #### [address] Triglyceride w/Reflex 101 mg/dL Normal [...] #### [facility] , #### CMP, CBC #### [address] VLDL CHOLESTEROL 20 mg/dL Normal [facility] Comment on above: Performed By: #### V ITD+D2+D3, THYROID PROF II #### [facility] , #### CMP, CBC #### [facility] [address] [place] [address] No Panel InformationOrdered By: Anibal Chaudhary on 11-03-2023 Estimated GFR (CKD-EPI) > 60.0 mL/Min [facility] Creatinine Clearance (Chem N/A [facility] Potassium [Moles/volume] in Serum or PlasmaOrdered By: Anibal Chaudhary on 11-03-2023 Potassium [Moles/Vol] 4.5 mmol/L 3.5-5.1 [facility] Comment on above: Performed By: #### V ITD+D2+D3, THYROID PROF II #### [facility] , #### CMP, CBC #### [facility] [address] [place] [address] Protein [Mass/volume] in Ser um or PlasmaOrdered By: Anibal Chaudhary on 11-03-2023 Protein [Mass/Vol] 6.8 g/dL 6.4-8.9 [facility] Comment on above: Performed By: #### V ITD+D2+D3, THYROID PROF II #### [facility] , #### CMP, CBC #### [facility] [address] [place] [address] Serum globulin measurement b y calculation (mass/volume)Ordered By: Anibal Chaudhary on 11-03-2023 Globulin (S) [Mass/Vol] 2.6 g/dL [facility] Comment on above: Performed By: #### V ITD+D2+D3, THYROID PROF II #### [facility] , #### CMP, CBC #### [facility] [address] [place] [address] Serum or plasma albumin/glob ulin mass ratioOrdered By: Anibal Chaudhary on 11-03-2023 Albumin/Globulin [Mass ratio] 1.6 {ratio} [facility] Comment on above: Performed By: #### V ITD+D2+D3, THYROID PROF II #### [facility] , #### CMP, CBC #### [facility] [address] [place] [address] Serum or plasma anion gap de terminationOrdered By: Anibal Chaudhary on 11-03-2023 Anion gap [Moles/Vol] 10.3 mmol/L 6.0-15.0 [facility] Comment on above: Performed By: #### V ITD+D2+D3, THYROID PROF II #### [facility] , #### CMP, CBC #### [facility] [address] [place] [address] Serum or plasma high density lipoprotein (HDL) cholesterol measurementOrdered By: Anibal Chaudhary on 11-03-2023 Cholesterol in HDL [Mass/Vol] 56 mg/dL [facility] Comment on above: HDL CHOL ATP-III CLA SSIFICATION Cardiovascular RiskHDL > or equal to 60 mg/dL LOWHDL < 40 mg/dL HIGH Result Comment: HDL CHOL ATP-III CLASSIFICATION Cardiovascular Risk HDL > or equal to 60 mg/dL LOW HDL < 40 mg/dL HIGH Performed By: #### V ITD+D2+D3, THYROID PROF II #### [facility] , #### CMP, CBC #### [facility] [address] [place] [address] Serum or plasma total choles terol/high density lipoprotein (HDL) cholesterol mass ratOrdered By: Anibal Chaudhary on 11-03-2023 Cholesterol.total/Chol esterol in HDL [Mass ratio] 2.9 {ratio} <5.0 [facility] Comment on above: Performed By: #### V ITD+D2+D3, THYROID PROF II #### [facility] , #### CMP, CBC #### [address] Sodium [Moles/volume] in Ser um or PlasmaOrdered By: Anibal Chaudhary on 11-03-2023 Sodium [Moles/Vol] 133 mmol/L Low 136-145 [facility] Comment on above: Performed By: #### V ITD+D2+D3, THYROID PROF II #### [facility] , #### CMP, CBC #### [facility] [address] [place] [address] Thyroid Stim Hormone w/Rflxo n 11-03-2023 Thyroid Stim Hormone w/Rflx 1.79 u[iU]/mL Normal 0.45-5.33 [facility] Comment on above: Result Comment: PERF ORMED BY: [place] [address] PATHOLOGIST [employer] M.D. Performed By: #### V ITD+D2+D3, THYROID PROF II #### [facility] , #### CMP, CBC #### [address] Thyrotropin [Units/volume] i n Serum or PlasmaOrdered By: Anibal Chaudhary on 11-03-2023 TSH Qn 1.79 m[IU]/L 0.45-5.33 [facility] Thyroxine (T4) free [Mass/vo lume] in Serum or PlasmaOrdered By: Anibal Chaudhary on 11-03-2023 Free T4 [Mass/Vol] 0.92 ng/dL 0.61-1.12 [facility] Comment on above: Performed By: #### V ITD+D2+D3, THYROID PROF II #### [facility] , #### CMP, CBC #### [facility] [address] Triglyceride [Mass/volume] i n Serum or PlasmaOrdered By: Anibal Chaudhary on 11-03-2023 Triglyceride [Mass/Vol] 101 mg/dL 0-149 [facility] Comment on above: TRIG ATP III CLASSIF ICATIONTRIG less than 150 mg/dL NormalTRIG 150-199 mg/dL Borderline highTRIG 200-500 mg/dL High TRIG greater than 500 mg/dL Very highStandard traceable to the Center for Disease Conrtrol and Prevention (CDC) test method. Urea nitrogen [Mass/volume] in Serum or PlasmaOrdered By: Anibal Chaudhary on 11-03-2023 Urea nitrogen [Mass/Vol] 20 mg/dL 10-15 [facility] Comment on above: Performed By: #### V ITD+D2+D3, THYROID PROF II #### [facility] , #### CMP, CBC #### [facility] [address] Basophils Auto (Bld) [#/Vol] on 09-07-2023 Basophils (Bld) [#/Vol] 0.1 10 3/uL 0.0-0.1 [facility] Basophils/100 WBC Auto (Bld) on 09-07-2023 Basophils/100 WBC (Bld) 1.0 % 0.2-2.0 [facility] Eosinophils/100 WBC Auto (Bl d)on 09-07-2023 Eosinophils/100 WBC (Bld) 0.0 % Low 0.9-7.0 [facility] Erythrocyte distribution wid th Auto (RBC) [Ratio]on 09-07-2023 Erythrocyte distribution width (RBC) [Ratio] 12.2 % 11.0-15.0 [facility] Estimated glomerular filtrat ion rate (GFR) non- Americanon 09-07-2023 GFR/1.73 sq M.predicted among non-blacks MDRD (S/P/Bld) [Vol rate/Area] mL/min/{1.73_m2} >=60 [facility] Globulin Calc (S) [Mass/Vol] on 09-07-2023 Globulin (S) [Mass/Vol] 3.6 g/dL [facility] Hematocrit Auto (Bld) [Volum e fraction]on 09-07-2023 Hematocrit (Bld) [Volume fraction] 38.5 % 36.0-48.0 [facility] Hemoglobin [Mass/volume] in Bloodon 09-07-2023 Hemoglobin (Bld) [Mass/Vol] 13.3 g/dL 12.0-16.0 [facility] Laboratory - Chemistry and C hemistry - challengeon 09-07-2023 Albumin [Mass/Vol] 3.6 g/dL 3.4-5.0 [facility] ALP [Catalytic activity/Vol] 84 U/L 46-116 [facility] ALT [Catalytic activity/Vol] 19 U/L 14-59 [facility] AST [Catalytic activity/Vol] 16 U/L 15-37 [facility] Bilirubin [Mass/Vol] 0.4 mg/dL 0.2-1.0 [facility] Calcium [Mass/Vol] 8.9 mg/dL 8.5-10.1 [facility] Chloride [Moles/Vol] 96 mmol/L Low 98-107 [facility] CO2 [Moles/Vol] 31.7 mmol/L 21.0-32.0 [facility] Creatinine [Mass/Vol] 0.91 mg/dL 0.55-1.02 [facility] GFR/1.73 sq M.predicted MDRD (S/P/Bld) [Vol rate/Area] mL/min/{1.73_m2} >=60 [facility] Glucose [Mass/Vol] 108 mg/dL High 74-106 [facility] Potassium [Moles/Vol] 4.2 mmol/L 3.5-5.1 [facility] Protein [Mass/Vol] 7.2 g/dL 6.4-8.2 [facility] Sodium [Moles/Vol] 130 mmol/L Low 136-145 [facility] Urea nitrogen [Mass/Vol] 15.0 mg/dL 7.0-18.0 [facility] Urea nitrogen/Creatinine [Mass ratio] 16.5 mg/mg [facility] - Hematology and Cell countson 09-07-2023 Immature granulocytes/100 WBC (Bld) 0.3 % 0.0-0.5 [facility] Leukocytes [#/volume] correc chantelle for nucleated erythrocytes in Blood by Automated counon 09-07-2023 WBC corrected for nucl RBC Auto (Bld) [#/Vol] 6.3 10 3/uL 4.0-11.0 [facility] Lymphocytes Auto (Bld) [#/Vo l]on 09-07-2023 Lymphocytes (Bld) [#/Vol] 1.4 10 3/uL 1.2-3.8 [facility] Lymphocytes/100 WBC Auto (Bl d)on 09-07-2023 Lymphocytes/100 WBC (Bld) 22.4 % 20.5-60.0 [facility] MCH Auto (RBC) [Entitic mass ]on 09-07-2023 MCH (RBC) [Entitic mass] 30.9 pg 26.7-34.0 [facility] MCHC Auto (RBC) [Mass/Vol]on 09-07-2023 MCHC (RBC) [Mass/Vol] 34.5 g/dL 29.9-35.2 [facility] MCV Auto (RBC) [Entitic vol] on 09-07-2023 MCV (RBC) [Entitic vol] 89.5 fL 81.0-99.0 [facility] Monocytes Auto (Bld) [#/Vol] on 09-07-2023 Monocytes (Bld) [#/Vol] 0.4 10 3/uL 0.3-0.8 [facility] Monocytes/100 WBC Auto (Bld) on 09-07-2023 Monocytes/100 WBC (Bld) 6.6 % 1.7-12.0 [facility] Neutrophils Auto (Bld) [#/Vo l]on 09-07-2023 Neutrophils (Bld) [#/Vol] 4.4 10 3/uL 1.4-6.5 [facility] Neutrophils/100 WBC Auto (Bl d)on 09-07-2023 Neutrophils/100 WBC (Bld) 69.7 % 43.0-75.0 [facility] No Panel Informationon 09-06 Eosinophils # (Auto) 0.0 10 3/uL 0.0-0.7 [facility] Immature Granulocyte # (Auto) 0.02 10 3/uL 0.00-0.03 [facility] Platelet mean volume Auto (B ld) [Entitic vol]on 09-07-2023 Platelet mean volume (Bld) [Entitic vol] 8.6 fL Low 9.5-13.5 [facility] Platelets Auto (Bld) [#/Vol] on 09-07-2023 Platelets (Bld) [#/Vol] 233 10 3/uL 150-450 [facility] RBC Auto (Bld) [#/Vol]on RBC (Bld) [#/Vol] 4.30 10 6/uL 4.20-5.40 [facility] Serum or plasma albumin/glob ulin mass ratioon 09-07-2023 Albumin/Globulin [Mass ratio] 1.0 {ratio} [facility] Serum or plasma anion gap de terminationon 09-07-2023 Anion gap [Moles/Vol] 6.5 mmol/L [facility] Basophils Auto (Bld) [#/Vol] on 08-19-2023 Basophils (Bld) [#/Vol] 0.1 10 3/uL 0.0-0.1 [facility] Basophils/100 WBC Auto (Bld) on 08-19-2023 Basophils/100 WBC (Bld) 1.3 % 0.2-2.0 [facility] Eosinophils/100 WBC Auto (Bl d)on 08-19-2023 Eosinophils/100 WBC (Bld) 0.0 % Low 0.9-7.0 [facility] Erythrocyte distribution wid th Auto (RBC) [Ratio]on 08-19-2023 Erythrocyte distribution width (RBC) [Ratio] 12.1 % 11.0-15.0 [facility] Estimated glomerular filtrat ion rate (GFR) non- Americanon 08-19-2023 GFR/1.73 sq M.predicted among non-blacks MDRD (S/P/Bld) [Vol rate/Area] mL/min/{1.73_m2} >=60 [facility] Hematocrit Auto (Bld) [Volum e fraction]on 08-19-2023 Hematocrit (Bld) [Volume fraction] 40.6 % 36.0-48.0 [facility] Hemoglobin [Mass/volume] in Bloodon 08-19-2023 Hemoglobin (Bld) [Mass/Vol] 13.8 g/dL 12.0-16.0 [facility] - Chemistry and C hemistry - challengeon 08-19-2023 Calcium [Mass/Vol] 8.8 mg/dL 8.5-10.1 [facility] Chloride [Moles/Vol] 96 mmol/L Low 98-107 [facility] CO2 [Moles/Vol] 30.6 mmol/L 21.0-32.0 [facility] Creatinine [Mass/Vol] 0.89 mg/dL 0.55-1.02 [facility] Free T4 [Mass/Vol] 0.87 ng/dL 0.76-1.46 [facility] GFR/1.73 sq M.predicted MDRD (S/P/Bld) [Vol rate/Area] mL/min/{1.73_m2} >=60 [facility] Glucose [Mass/Vol] 116 mg/dL High 74-106 [facility] Natriuretic peptide B (Bld) [Mass/Vol] 490.0 pg/mL <=900.0 [facility] Potassium [Moles/Vol] 4.4 mmol/L 3.5-5.1 [facility] Sodium [Moles/Vol] 133 mmol/L Low 136-145 [facility] TSH Qn 4.910 m[IU]/L High 0.358-3.74 0 [facility] Urea nitrogen [Mass/Vol] 20.0 mg/dL High 7.0-18.0 [facility] Urea nitrogen/Creatinine [Mass ratio] 22.5 mg/mg [facility] Bilirubin Ql (U) Negative NEGATIVE [facility] Glucose (U) [Mass/Vol] Negative NEGATIVE [facility] Ketones Ql (U) Negative NEGATIVE [facility] pH (U) 7.0 [pH] 5.0-9.0 [facility] Specific gravity (U) [Rel density] 1.010 1.005-1.02 5 [facility] Urobilinogen Qn (U) 0.2 {Lenny'U}/dL 0.2-1.0 [facility] - Hematology and Cell countson 08-19-2023 Immature granulocytes/100 WBC (Bld) 0.5 % 0.0-0.5 [facility] - Specimen inform ationon 08-19-2023 Appearance (U) CLEAR CLEAR [facility] Color (U) LT. YELLOW YELLOW [facility] - Urinalysison Leukocyte esterase Test strip Ql (U) Negative NEGATIVE [facility] Nitrite Ql (U) Negative NEGATIVE [facility] Protein Ql (U) Negative NEG/TRACE [facility] Leukocytes [#/volume] correc chantelle for nucleated erythrocytes in Blood by Automated counon 08-19-2023 WBC corrected for nucl RBC Auto (Bld) [#/Vol] 7.5 10 3/uL 4.0-11.0 [facility] Lymphocytes Auto (Bld) [#/Vo l]on 08-19-2023 Lymphocytes (Bld) [#/Vol] 1.6 10 3/uL 1.2-3.8 [facility] Lymphocytes/100 WBC Auto (Bl d)on 08-19-2023 Lymphocytes/100 WBC (Bld) 21.2 % 20.5-60.0 [facility] MCH Auto (RBC) [Entitic mass ]on 08-19-2023 MCH (RBC) [Entitic mass] 31.0 pg 26.7-34.0 [facility] MCHC Auto (RBC) [Mass/Vol]on 08-19-2023 MCHC (RBC) [Mass/Vol] 34.0 g/dL 29.9-35.2 [facility] MCV Auto (RBC) [Entitic vol] on 08-19-2023 MCV (RBC) [Entitic vol] 91.2 fL 81.0-99.0 [facility] Monocytes Auto (Bld) [#/Vol] on 08-19-2023 Monocytes (Bld) [#/Vol] 0.5 10 3/uL 0.3-0.8 [facility] Monocytes/100 WBC Auto (Bld) on 08-19-2023 Monocytes/100 WBC (Bld) 6.4 % 1.7-12.0 [facility] Neutrophils Auto (Bld) [#/Vo l]on 08-19-2023 Neutrophils (Bld) [#/Vol] 5.3 10 3/uL 1.4-6.5 [facility] Neutrophils/100 WBC Auto (Bl d)on 08-19-2023 Neutrophils/100 WBC (Bld) 70.6 % 43.0-75.0 [facility] No Panel Informationon 08-18 Eosinophils # (Auto) 0.0 10 3/uL 0.0-0.7 [facility] Immature Granulocyte # (Auto) 0.04 10 3/uL High 0.00-0.03 [facility] Urine Occult Blood TRACE-L NEGATIVE [facility] Platelet mean volume Auto (B ld) [Entitic vol]on 08-19-2023 Platelet mean volume (Bld) [Entitic vol] 9.0 fL Low 9.5-13.5 [facility] Platelets Auto (Bld) [#/Vol] on 08-19-2023 Platelets (Bld) [#/Vol] 259 10 3/uL 150-450 [facility] RBC Auto (Bld) [#/Vol]on RBC (Bld) [#/Vol] 4.45 10 6/uL 4.20-5.40 [facility] Serum or plasma anion gap de terminationon 08-19-2023 Anion gap [Moles/Vol] 10.8 mmol/L [facility] Alanine aminotransferase [En zymatic activity/volume] in Serum or PlasmaOrdered By: Pam Wagoner on 07-08-2023 ALT [Catalytic activity/Vol] 13 U/L Normal 7-52 [facility] Comment on above: Performed By: #### V ITD+D2+D3, THYROID PROF II #### [facility] , #### CMP, CBC #### [facility] [address] [place] [address] Albumin [Mass/volume] in Ser um or Plasma by Bromocresol green (BCG) dye binding methoOrdered By: Pam Wagoner on 07-08-2023 Albumin BCG dye [Mass/Vol] 4.7 g/dL 3.5-5.7 [facility] Alkaline phosphatase [Enzyma tic activity/volume] in Serum or PlasmaOrdered By: Pam Wagoner on 07-08-2023 ALP [Catalytic activity/Vol] 72 U/L Normal 34-104 [facility] Comment on above: Result Comment: PERF ORMED BY: [place] [address] PATHOLOGIST [employer] GAGE M.D. Performed By: #### V ITD+D2+D3, THYROID PROF II #### [facility] , #### CMP, CBC #### [address] Aspartate aminotransferase [ Enzymatic activity/volume] in Serum or PlasmaOrdered By: Pam Wagoner on 07-08-2023 AST [Catalytic activity/Vol] 18 U/L Normal 13-39 [facility] Comment on above: Performed By: #### V ITD+D2+D3, THYROID PROF II #### [facility] , #### CMP, CBC #### [facility] [address] [place] [address] Automated basophil %Ordered By: Pam Wagoner on 07-08-2023 Basophils/100 WBC (Bld) 1.2 % Normal . [facility] Comment on above: Performed By: #### V ITD+D2+D3, THYROID PROF II #### [facility] , #### CMP, CBC #### [address] Automated basophil countOrde red By: Pam Wagoner on 07-08-2023 Basophils (Bld) [#/Vol] 0.1 10*3/uL Normal 0.0-0.2 [facility] Comment on above: Result Comment: PERF ORMED BY: [place] [address] PATHOLOGIST [employer] G[employer] M.D. Performed By: #### V ITD+D2+D3, THYROID PROF II #### [facility] , #### CMP, CBC #### [address] Automated blood monocyte cou ntOrdered By: Pam Wagoner on 07-08-2023 Monocytes (Bld) [#/Vol] 0.5 10*3/uL Normal 0.0-0.8 [facility] Comment on above: Performed By: #### V ITD+D2+D3, THYROID PROF II #### [facility] , #### CMP, CBC #### [address] Automated eosinophil %Ordere d By: Pam Wagoner on 07-08-2023 Eosinophils/100 WBC (Bld) 0.0 % Normal . [facility] Comment on above: Performed By: #### V ITD+D2+D3, THYROID PROF II #### [facility] , #### CMP, CBC #### [address] Automated eosinophil countOr dered By: Pam Wagoner on 07-08-2023 Eosinophils (Bld) [#/Vol] 0.0 10*3/uL Normal 0.0-0.45 [facility] Comment on above: Performed By: #### V ITD+D2+D3, THYROID PROF II #### [facility] , #### CMP, CBC #### [address] Automated monocyte %Ordered By: Pam Wagoner on 07-08-2023 Monocytes/100 WBC (Bld) 7.8 % Normal . [facility] Comment on above: Performed By: #### V ITD+D2+D3, THYROID PROF II #### [facility] , #### CMP, CBC #### [address] Automated neutrophil %Ordere d By: Pam Wagoner on 07-08-2023 Neutrophils/100 WBC (Bld) 65.2 % Normal . [facility] Comment on above: Performed By: #### V ITD+D2+D3, THYROID PROF II #### [facility] , #### CMP, CBC #### [address] Bilirubin.total [Mass/volume ] in Serum or PlasmaOrdered By: Pam Wagoner on 07-08-2023 Bilirubin [Mass/Vol] 0.3 mg/dL Normal 0.3-1.0 [facility] Comment on above: Performed By: #### V ITD+D2+D3, THYROID PROF II #### [facility] , #### CMP, CBC #### [address] Calcium [Mass/volume] in Ser um or PlasmaOrdered By: Pam Wagoner on 07-08-2023 Calcium [Mass/Vol] 9.9 mg/dL Normal 8.6-10.3 [facility] Comment on above: Performed By: #### V ITD+D2+D3, THYROID PROF II #### [facility] , #### CMP, CBC #### [facility] [address] [place] [address] Carbon dioxide, total [Moles /volume] in Serum or PlasmaOrdered By: Pam Wagoner on 07-08-2023 CO2 [Moles/Vol] 31.5 mmol/L High 21.0-31.0 [facility] Comment on above: Performed By: #### V ITD+D2+D3, THYROID PROF II #### [facility] , #### CMP, CBC #### [facility] [address] [place] [address] Chloride [Moles/volume] in S davi or PlasmaOrdered By: Pam Wagoner on 07-08-2023 Chloride [Moles/Vol] 100 mmol/L Normal 98-107 [facility] Comment on above: Performed By: #### V ITD+D2+D3, THYROID PROF II #### [facility] , #### CMP, CBC #### [address] Complete Blood Count Auto Di ffon 07-08-2023 Mean Corpuscular HGB Conc 34.0 g/dL Normal 32.0-35.0 [facility] Comment on above: Performed By: #### V ITD+D2+D3, THYROID PROF II #### [facility] , #### CMP, CBC #### [address] NRBC% 0.1 /100{WBC} Normal 0-0.5 [facility] Comment on above: Performed By: #### V ITD+D2+D3, THYROID PROF II #### [facility] , #### CMP, CBC #### [facility] [address] [place] [address] Comprehensive Metabolic Pane kirit 07-08-2023 Albumin [Mass/Vol] 4.7 g/dL Normal 3.5-5.7 [facility] Comment on above: Performed By: #### V ITD+D2+D3, THYROID PROF II #### [facility] , #### CMP, CBC #### [facility] [address] [place] [address] [place] GFR/1.73 sq M.predicted MDRD (S/P/Bld) [Vol rate/Area] mL/min/{1.73_m2} Normal [facility] Comment on above: Performed By: #### V ITD+D2+D3, THYROID PROF II #### [facility] , #### CMP, CBC #### [facility] [address] [place] [address] Creatinine [Mass/volume] in Serum or PlasmaOrdered By: Pam Wgaoner on 07-08-2023 Creatinine [Mass/Vol] 0.96 mg/dL Normal 0.60-1.20 [facility] Comment on above: Performed By: #### V ITD+D2+D3, THYROID PROF II #### [facility] , #### CMP, CBC #### [facility] [address] [place] [address] Erythrocyte distribution wid th [Ratio] by Automated countOrdered By: Pam Wagoner on 07-08-2023 Erythrocyte distribution width (RBC) [Ratio] 12.9 % Normal 11.9-15.3 [facility] Comment on above: Performed By: #### V ITD+D2+D3, THYROID PROF II #### [facility] , #### CMP, CBC #### [address] Erythrocytes [#/volume] in B lood by Automated countOrdered By: Pam Wagoner on 07-08-2023 RBC (Bld) [#/Vol] 4.72 10*6/uL Normal 3.60-5.00 [facility] Comment on above: Performed By: #### V ITD+D2+D3, THYROID PROF II #### [facility] , #### CMP, CBC #### [address] Free thyroxine indexOrdered By: Pam Wagoner on 07-08-2023 Free T4 index Calc [Mass/Vol] 1.8 1.2-4.9 [facility] Glucose [Mass/volume] in Ser um or PlasmaOrdered By: Pam Wagoner on 07-08-2023 Glucose [Mass/Vol] 109 mg/dL High 70-100 [facility] Comment on above: ADA recommended refe rence rangeRandom Glucose Reference Range is dependent on time and content of last meal. Glucose of more than 200 mg/dL in a nonstressed, ambulatory subject supports the diagnosis of Diabetes Mellitus. Result Comment: [facility] Glucose Reference Range is dependent on time and content of last meal. Glucose of more than 200 mg/dL in a nonstressed, ambulatory subject supports the diagnosis of Diabetes Mellitus. ADA recommended reference range Performed By: #### V ITD+D2+D3, THYROID PROF II #### [facility] , #### CMP, CBC #### [address] Hematocrit [Volume Fraction] of Blood by Automated countOrdered By: Pam Wagoner on 07-08-2023 Hematocrit (Bld) [Volume fraction] 43.4 % Normal 34.0-46.4 [facility] Comment on above: Performed By: #### V ITD+D2+D3, THYROID PROF II #### [facility] , #### CMP, CBC #### [address] Hemoglobin [Mass/volume] in BloodOrdered By: Pam Wagoner on 07-08-2023 Hemoglobin (Bld) [Mass/Vol] 14.7 g/dL Normal 11.8-15.4 [facility] Comment on above: Performed By: #### V ITD+D2+D3, THYROID PROF II #### [facility] , #### CMP, CBC #### [facility] [address] [place] [address] Leukocytes [#/volume] correc chantelle for nucleated erythrocytes in Blood by Automated counOrdered By: Pam Wagoner on 07-08-2023 WBC corrected for nucl RBC Auto (Bld) [#/Vol] 6.7 10*3/uL 3.8-11.6 [facility] Leukocytes [#/volume] in Blo od by Automated countOrdered By: Pam Wagoner on 07-08-2023 WBC (Bld) [#/Vol] 6.7 10*3/uL Normal 3.8-11.6 [facility] Comment on above: Performed By: #### V ITD+D2+D3, THYROID PROF II #### [facility] , #### CMP, CBC #### [address] Lymphocytes [#/volume] in Bl ood by Automated countOrdered By: Pam Wagoner on 07-08-2023 Lymphocytes (Bld) [#/Vol] 1.7 10*3/uL Normal 1.00-4.8 [facility] Comment on above: Performed By: #### V ITD+D2+D3, THYROID PROF II #### [facility] , #### CMP, CBC #### [facility] [address] [place] [address] Lymphocytes/100 leukocytes i n Blood by Automated countOrdered By: Pam Wagoner on 07-08-2023 Lymphocytes/100 WBC (Bld) 25.8 % Normal . [facility] Comment on above: Performed By: #### V ITD+D2+D3, THYROID PROF II #### [facility] , #### CMP, CBC #### [address] MCH [Entitic mass] by Automa chantelle countOrdered By: Pam Wagoner on 07-08-2023 MCH (RBC) [Entitic mass] 31.2 pg Normal 24.7-34.3 [facility] Comment on above: Performed By: #### V ITD+D2+D3, THYROID PROF II #### [facility] , #### CMP, CBC #### [facility] [address] [place] [address] MCHC Auto (RBC) [Mass/Vol]Or dered By: Pam Wagoner on 07-08-2023 MCHC (RBC) [Mass/Vol] 34.0 g/dL 32.0-35.0 [facility] MCV [Entitic volume] by Auto mated countOrdered By: Pam Wagonre on 07-08-2023 MCV (RBC) [Entitic vol] 92.0 fL Normal 80-100 [facility] Comment on above: Performed By: #### V ITD+D2+D3, THYROID PROF II #### [facility] , #### CMP, CBC #### [facility] [address] [place] [address] Neutrophils [#/volume] in Bl ood by Automated countOrdered By: Pam Wagoner on 07-08-2023 Neutrophils (Bld) [#/Vol] 4.3 10*3/uL Normal 1.8-7.7 [facility] Comment on above: Performed By: #### V ITD+D2+D3, THYROID PROF II #### [facility] , #### CMP, CBC #### [facility] [address] [place] [address] No Panel InformationOrdered By: Pam Wagoner on 07-08-2023 Estimated GFR (CKD-EPI) > 60.0 mL/Min [facility] Free Thyroxine (T4) Direct 7.5 ug/dL 4.5-12.0 [facility] Creatinine Clearance (Chem N/A [facility] Nucleated erythrocytes [Pres ence] in Blood by Automated countOrdered By: Pam Wagoner on 07-08-2023 Nucleated RBC Auto Ql (Bld) 0.1 /100{WBC} 0-0.5 [facility] Platelet mean volume [Entiti c volume] in Blood by Automated countOrdered By: Pam Wagoner on 07-08-2023 Platelet mean volume (Bld) [Entitic vol] 7.8 fL Normal 6.3-10.7 [facility] Comment on above: Performed By: #### V ITD+D2+D3, THYROID PROF II #### [facility] , #### CMP, CBC #### [facility] [address] [place] [address] Platelets [#/volume] in Bloo d by Automated countOrdered By: Pam Wagoner on 07-08-2023 Platelets (Bld) [#/Vol] 278 10*3/uL Normal 150-450 [facility] Comment on above: Performed By: #### V ITD+D2+D3, THYROID PROF II #### [facility] , #### CMP, CBC #### [facility] [address] [place] [address] [place] Potassium [Moles/volume] in Serum or PlasmaOrdered By: aPm Wagoner on 07-08-2023 Potassium [Moles/Vol] 4.7 mmol/L Normal 3.5-5.1 [facility] Comment on above: Performed By: #### V ITD+D2+D3, THYROID PROF II #### [facility] , #### CMP, CBC #### [address] Protein [Mass/volume] in Ser um or PlasmaOrdered By: Pam Wagoner on 07-08-2023 Protein [Mass/Vol] 7.5 g/dL Normal 6.4-8.9 [facility] Comment on above: Performed By: #### V ITD+D2+D3, THYROID PROF II #### [facility] , #### CMP, CBC #### [address] Serum globulin measurement b y calculation (mass/volume)Ordered By: Pam Wagoner on 07-08-2023 Globulin (S) [Mass/Vol] 2.8 g/dL Normal [facility] Comment on above: Performed By: #### V ITD+D2+D3, THYROID PROF II #### [facility] , #### CMP, CBC #### [facility] [address] [place] [address] Serum or plasma 25-hydroxyca lciferol measurement (mass/volume)Ordered By: Pam Wagoner on 07-08-2023 25-hydroxyvitamin D2 [Mass/Vol] <1.0 ng/mL . [facility] Comment on above: This test was devcarmelinao ped and its performance characteristicsdetermined by [facility]. It has not been cleared or approvedby the Food and Drug Administration. Serum or plasma 25-hydroxyvi tamin D measurement (mass/volume)Ordered By: Pam Wagoner on 07-08-2023 25-hydroxyvitamin D [Mass/Vol] 6.8 ng/mL . [facility] Comment on above: Reference Range:All Ages: Target levels 30 - 100 Serum or plasma albumin/glob ulin mass ratioOrdered By: Pam Wagoner on 07-08-2023 Albumin/Globulin [Mass ratio] 1.7 {ratio} Normal [facility] Comment on above: Performed By: #### V ITD+D2+D3, THYROID PROF II #### [facility] , #### CMP, CBC #### [address] Serum or plasma anion gap de terminationOrdered By: Pam Wagoner on 07-08-2023 Anion gap [Moles/Vol] 9.2 mmol/L Normal 6.0-15.0 [facility] Comment on above: Performed By: #### V ITD+D2+D3, THYROID PROF II #### [facility] , #### CMP, CBC #### [facility] [address] [place] [address] Serum or plasma calcidiol me asurement (mass/volume)Ordered By: Pam Wagoner on 07-08-2023 25-hydroxyvitamin D3 [Mass/Vol] 6.8 ng/mL . [facility] Comment on above: This test was develo ped and its performance characteristicsdetermined by [facility]. It has not been cleared or approvedby the Food and Drug Administration.Performed at: [facility] [facility] [id number] [place], [place] [id number] Director: Santos Chahal MD, Phone: [phone] Serum or plasma thyroid stim ulating hormone (TSH) measurement by high sensitivity metOrdered By: Pam Wagoner on 07-08-2023 TSH Qn 5.980 m[IU]/L High 0.450-4.50 0 [facility] Comment on above: Result Comment: PERF ORMED BY: [place] [address] PATHOLOGIST [employer] GAGE M.D. Performed By: #### V ITD+D2+D3, THYROID PROF II #### [facility] , #### CMP, CBC #### [facility] [address] [place] [address] Sodium [Moles/volume] in Ser um or PlasmaOrdered By: Pam Wagoner on 07-08-2023 Sodium [Moles/Vol] 136 mmol/L Normal 136-145 [facility] Comment on above: Performed By: #### V ITD+D2+D3, THYROID PROF II #### [facility] , #### CMP, CBC #### [facility] [address] [place] [address] T3 uptakeOrdered By: Pam Wagoner on 07-08-2023 T3RU 24 % 24-39 [facility] Thyroid Profile IIon 024 Free Thyroxine Index 1.8 Normal 1.2-4.9 [facility] Comment on above: Performed By: #### V ITD+D2+D3, THYROID PROF II #### [facility] , #### CMP, CBC #### [address] Lab [facility] Triiodothyronine,(T3) 124 ng/dL Normal 71-180 [facility] Comment on above: Result Comment: Perf ormed at: - [facility] [address] [id number] Deck Scaler: Spencer Martinez PhD, Phone: [phone] Performed By: #### V ITD+D2+D3, THYROID PROF II #### [facility] , #### CMP, CBC #### [facility] [address] [place] [address] T4 [Mass/Vol] 7.5 ug/dL Normal 4.5-12.0 [facility] Comment on above: Performed By: #### V ITD+D2+D3, THYROID PROF II #### [facility] , #### CMP, CBC #### [facility] [address] [place] [address] Triiodothryronine (T3) Uptake 24 % Normal 24-39 [facility] Comment on above: Performed By: #### V ITD+D2+D3, THYROID PROF II #### [facility] , #### CMP, CBC #### [facility] [address] [place] [address] Triiodothyronine (T3) [Mass/ volume] in Serum or PlasmaOrdered By: Pam Wagoner on 07-08-2023 T3 [Mass/Vol] 124 ng/dL 71-180 [facility] Comment on above: Performed at: [address] [id number] Director: Spencer Martinez PhD, Phone: [phone] Urea nitrogen [Mass/volume] in Serum or PlasmaOrdered By: Pam Wagoner on 07-08-2023 Urea nitrogen [Mass/Vol] 26 mg/dL High 7-25 [facility] Comment on above: Performed By: #### V ITD+D2+D3, THYROID PROF II #### [facility] , #### CMP, CBC #### [address] Vitamin D 25 Hydroxy,Tot+D2+ D3on 07-08-2023 Lab [facility] Vitamin D 25 [place] 6.8 ng/mL Low . [facility] Comment on above: Result Comment: Refe rence Range: All Ages: Target levels 30 - 100 Performed By: #### V ITD+D2+D3, THYROID PROF II #### [facility] , #### CMP, CBC #### [address] Vitamin D-2 <1.0 Normal . [facility] Comment on above: Result Comment: This test was developed and its performance characteristics determined by [facility]. It has not been cleared or approved by the Food and Drug Administration. Performed By: #### V ITD+D2+D3, THYROID PROF II #### [facility] , #### CMP, CBC #### [facility] [address] [place] [address] Vitamin D-3 6.8 ng/mL Normal . [facility] Comment on above: Result Comment: This test was developed and its performance characteristics determined by [facility]. It has not been cleared or approved by the Food and Drug Administration. Performed at: [facility] [address] [place] [id number] Deck Scaler: Santos Chahal MD, Phone: [phone] PERFORMED BY: [facility] [address] [place] [address] PATHOLOGIST [employer] GAGE M.D. Performed By: #### V ITD+D2+D3, THYROID PROF II #### [facility] , #### CMP, CBC #### [address] Progress Note - Nutritionon 06-04-2023 Progress Note - Nutrition Pt is here today for an initial DM MNT appt. Pt has had diabetes for two years. 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 Referral of Care: [...] f/u fo (more content not included)... Normal [facility] BD Bone Density DEXAon 05-29 BD Bone [...] MD, V. Transcribed by: EUSEBIA Technologist: SENIA [facility] Consent for Treatmenton Consent for Treatment [id number] [facility] Consent for Treatment [id number]#[id number] [facility] Physician Orderon 05-20-2023 Physician Order [id number]#[id number] Normal [facility] Physician Referralon 024 Physician Referral [id number]#1.00TIFF Normal [facility] community outreach lela negron 02-28-2023 community outreach carotid [place] [address] Ultrasound Report Signed Patient: Ruma Carlton MR#: [id number] : 1960 Acct:[id number] Age/Sex: 62 / F ADM Date: 02/25/23 Loc: Room: Type: [facility] Attending Dr: Colin Community Ordering Provider: COLIN SOTO Date of Service: 02/25/23 [place]/[facility] outreach carotid: SCREENING Copies to: [facility] CAROTID DUPLEX INDICATION: Community outreach screening [...] Carmelita Holman MD02/28/2023 10:51 AM Dictation Location: [place] [address] Tech: Ruby Hutchison Transcribed By: CHRISTIAN 02/28/23 1051 Dictated By: Carmelita Holman MD 02/28/23 1050 Signed By: 02/28/23 1051 Normal [facility] Basic Metabolic Panelon 100 Creatinine Clr Calc Pharmacy 103.69 Normal [facility] Comment on above: Result Comment: PERF ORMED BY: [place] [address] PATHOLOGIST [employer] GAGE M.D. Performed By: #### B MP #### [address] GFR/1.73 sq M.predicted MDRD (S/P/Bld) [Vol rate/Area] mL/min/{1.73_m2} Normal [facility] Comment on above: Performed By: #### B MP #### [address] Calcium [Mass/volume] in Ser um or PlasmaOrdered By: Froilan Brown on 12-24-2022 Calcium [Mass/Vol] 8.8 mg/dL Normal 8.6-10.3 [facility] Comment on above: Performed By: #### B MP #### [place] [address] [place] Carbon dioxide, total [Moles /volume] in Serum or PlasmaOrdered By: Froilan Brown on 12-24-2022 CO2 [Moles/Vol] 25.8 mmol/L Normal 21.0-31.0 [facility] Comment on above: Performed By: #### B MP #### [place] [address] [place] Chloride [Moles/volume] in S davi or PlasmaOrdered By: Froilan Brown on 12-24-2022 Chloride [Moles/Vol] 104 mmol/L Normal 98-107 [facility] Comment on above: Performed By: #### B MP #### [facility] [address] Creatinine [Mass/volume] in Serum or PlasmaOrdered By: Froilan Brown on 12-24-2022 Creatinine [Mass/Vol] 0.61 mg/dL Normal 0.60-1.20 [facility] Comment on above: Performed By: #### B MP #### [facility] [address] ECG 12 lead ECGon 12-24-2022 ECG 12 lead ECG [facility] [place] [address] [place] [address] Electrocardiograph Report Signed Patient: Ruma Carlton MR#: [id number] : 1960 Acct:[id number] Age/Sex: 62 / F ADM Date: 12/24/22 Loc: Room: [address] [place] [address] Type: DIS INOo Attending Dr: Petr Kowalski [...] [facility] ECG 12 lead ECG [facility] [place] [address] [place] [address] Electrocardiograph Report Signed Patient: Ruma Carlton MR#: [id number] : 1960 Acct:[id number] Age/Sex: 62 / F ADM Date: 12/24/22 Loc: Room: [address] [place] [address] Type: DIS INOo Attending Dr: Petr Kowalski [...] is now present Confirmed by CR SCHULTE [facility], REGINA ([id number]) on 12/25/2022 10:57:18 AM Referred By: Electronically Signed By:REGINA MOLINA MD [facility] Transcribed By: MUS Signed By Sukhi Molina MD 12/25/22 105 Normal [facility] Glucose [Mass/volume] in Ser um or PlasmaOrdered By: Froilan Brown on 12-24-2022 Glucose [Mass/Vol] 113 mg/dL High 70-100 [facility] Comment on above: ADA recommended refe rence rangeRandom Glucose Reference Range is dependent on time and content of last meal. Glucose of more than 200 mg/dL in a nonstressed, ambulatory subject supports the diagnosis of Diabetes Mellitus. Result Comment: [place] [facility] Glucose Reference Range is dependent on time and content of last meal. Glucose of more than 200 mg/dL in a nonstressed, ambulatory subject supports the diagnosis of Diabetes Mellitus. ADA recommended reference range Performed By: #### B MP #### [address] No Panel InformationOrdered By: Froilan Brown on 12-24-2022 Estimated GFR (CKD-EPI) > 60.0 mL/Min [facility] Creatinine Clearance (Chem 103.69 [facility] Potassium [Moles/volume] in Serum or PlasmaOrdered By: Froilan Brown on 12-24-2022 Potassium [Moles/Vol] 4.3 mmol/L Normal 3.5-5.1 [facility] Comment on above: Performed By: #### B MP #### [address] Serum or plasma anion gap de terminationOrdered By: Froilan Brown on 12-24-2022 Anion gap [Moles/Vol] 9.5 mmol/L Normal 6.0-15.0 [facility] Comment on above: Performed By: #### B MP #### [address] Sodium [Moles/volume] in Ser um or PlasmaOrdered By: Froilan Brown on 12-24-2022 Sodium [Moles/Vol] 135 mmol/L Low 136-145 [facility] Comment on above: Performed By: #### B MP #### [address] Troponin I High Sensitivityo n 12-24-2022 Troponin I High Sensitivity 7.7 pg/mL Normal 0.0-15.0 [facility] Comment on above: Result Comment: PERF ORMED BY: [place] [address] PATHOLOGIST [employer] GAGE M.D. Performed By: #### V ITD+D2+D3, THYROID PROF II #### [facility] , #### CMP, CBC #### [address] Troponin I.cardiac [Mass/vol ume] in Serum or Plasma by Detection limit <= 0.01 ng/Ordered By: Froilan Brown on 12-24-2022 Troponin I.cardiac DL <= 0.01 ng/mL [Mass/Vol] 7.7 pg/mL 0.0-15.0 [facility] Urea nitrogen [Mass/volume] in Serum or PlasmaOrdered By: Froilan Brown on 12-24-2022 Urea nitrogen [Mass/Vol] 8 mg/dL Normal 7-25 [facility] Comment on above: Performed By: #### B MP #### [facility] [address] CBC AUTO DIFFon 05-27-2022 BASO # 0.1 103/ul Normal 0.0-0.1 [facility] Comment on above: Performed By: #### C BC #### [facility] [address] [place] [address] Dr. Domi Saleem Basophils/100 WBC (Bld) 1.2 % Normal 0.2-2.0 [facility] Comment on above: Performed By: #### C BC #### [facility] [address] [place] [address] Dr. Domi Saleem EO # 0.3 103/ul Normal 0.0-0.7 [facility] Comment on above: Performed By: #### C BC #### [facility] [address] [place] [address] Dr. Domi Saleem Eosinophils/100 WBC (Bld) 3.8 % Normal 0.9-7.0 [facility] Comment on above: Performed By: #### C BC #### [facility] [address] [place] [address] Dr. Domi Saleem Erythrocyte distribution width (RBC) [Ratio] 12.5 % Normal 11.0-15.[address] [facility] Comment on above: Performed By: #### C BC #### [facility] [address] [place] [address] Dr. Domi Saleem Hematocrit (Bld) [Volume fraction] 42.5 % Normal 36.0-48.0 [facility] Comment on above: Performed By: #### C BC #### [facility] [address] [place] [address] Dr. Domi Saleem Hemoglobin (Bld) [Mass/Vol] 14.6 g/dL Normal 12.0-16.0 [facility] Comment on above: Performed By: #### C BC #### [facility] [address] [place] [address] Dr. Domi Saleem IG # 0.04 10e3/ul Critically high 0.00-0.03 [facility] Comment on above: Performed By: #### C BC #### [facility] [address] [place] [address] Dr. Domi Saleem IG % 0.6 % Critically high 0.0-0.5 [facility] Comment on above: Performed By: #### C BC #### [facility] [address] [place] [address] Dr. Domi Saleem LYMPH # 1.3 103/ul Normal 1.2-3.8 [facility] Comment on above: Performed By: #### C BC #### [facility] [address] [place] [address] Dr. Domi Saleem Lymphocytes/100 WBC (Bld) 18.5 % Critically low 20.5-60.0 [facility] Comment on above: Performed By: #### C BC #### [facility] [address] [place] [address] Dr. Domi Saleem MANUAL DIFF REQ NO Normal [facility] Comment on above: Performed By: #### C BC #### [facility] [address] [place] [address] Dr. Domi Saleem MCH (RBC) [Entitic mass] 31.1 pg Normal 26.7-34.0 [facility] Comment on above: Performed By: #### C BC #### [facility] [address] [place] [address] Dr. Domi Saleem MCHC (RBC) [Mass/Vol] 34.4 g/dL Normal 29.9-35.2 [facility] Comment on above: Performed By: #### C BC #### [facility] [address] [place] [address] Dr. Domi Saleem MCV (RBC) [Entitic vol] 90.4 fL Normal 81.0-99.0 [facility] Comment on above: Performed By: #### C BC #### [facility] [address] [place] [address] Dr. Domi Saleem MONO # 0.3 103/ul Normal 0.3-0.8 [facility] Comment on above: Performed By: #### C BC #### [facility] [address] [place] [address] Dr. Domi Saleem Monocytes/100 WBC (Bld) 4.2 % Normal 1.7-12.0 [facility] Comment on above: Performed By: #### C BC #### [facility] [address] [place] [address] Dr. Domi Saleem NEUT # 5.0 103/ul Normal 1.4-6.5 [facility] Comment on above: Performed By: #### C BC #### [facility] [address] [place] [address] Dr. Domi Saleem Neutrophils/100 WBC (Bld) 71.7 % Normal 43.0-75.0 [facility] Comment on above: Performed By: #### C BC #### [facility] [address] [place] [address] Dr. Domi Saleem Platelet mean volume (Bld) [Entitic vol] 8.6 fL Critically low 9.5-13.5 [facility] Comment on above: Performed By: #### C BC #### [facility] [address] [place] [address] Dr. Domi Saleem PLT 265 103/ul Normal 150-[address] [facility] Comment on above: Performed By: #### C BC #### [facility] [address] [place] [address] Dr. Domi Saleem RBC 4.70 106/ul Normal 4.20-5.[address] [facility] Comment on above: Performed By: #### C BC #### [facility] [address] [place] [address] Dr. Domi Saleem WBC 6.9 103/ul Normal 4.0-11.[address] [facility] Comment on above: Performed By: #### C BC #### [facility] [address] [place] [address] Dr. Domi Saleem PROF 14(COMP METB)on 023 Albumin [Mass/Vol] 3.7 g/dL Normal 3.4-5.0 [facility] Comment on above: Performed By: #### C MP #### [facility] [address] [place] [address] Dr. Domi Saleem Albumin/Globulin [Mass ratio] 0.9 {ratio} Normal [facility] Comment on above: Performed By: #### C MP #### [facility] [address] [place] [address] Dr. Domi Saleem ALP [Catalytic activity/Vol] 101 U/L Normal 46-116 [facility] Comment on above: Performed By: #### C MP #### [facility] [address] [place] [address] Dr. Domi Saleem ALT [Catalytic activity/Vol] 15 U/L Normal 14-59 [facility] Comment on above: Performed By: #### C MP #### [facility] [address] [place] [address] Dr. Domi Saleem Anion gap [Moles/Vol] 11.9 mmol/L Normal [facility] Comment on above: Performed By: #### C MP #### [facility] [address] [place] [address] Dr. Domi Saleem AST [Catalytic activity/Vol] 16 U/L Normal 15-[address] [facility] Comment on above: Performed By: #### C MP #### [facility] [address] [place] [address] Dr. Domi Saleem Bilirubin [Mass/Vol] 0.3 mg/dL Normal 0.2-1.0 [facility] Comment on above: Performed By: #### C MP #### [facility] [address] [place] [address] Dr. Domi Saleem Calcium [Mass/Vol] 9.0 mg/dL Normal 8.5-10.1 [facility] Comment on above: Performed By: #### C MP #### [facility] [address] [place] [address] Dr. Domi Saleem Chloride [Moles/Vol] 100 mmol/L Normal 98-[address] [facility] Comment on above: Performed By: #### C MP #### [facility] [address] [place] [address] Dr. Domi Saleem CO2 [Moles/Vol] 29.0 mmol/L Normal 21.0-32.0 [facility] Comment on above: Performed By: #### C MP #### [facility] [address] [place] [address] Dr. Domi Saleem Creatinine [Mass/Vol] 0.69 mg/dL Normal 0.55-1.[address] [facility] Comment on above: Performed By: #### C MP #### [facility] [address] [place] [address] Dr. Domi Saleem EGFR-AF MALTESE >60 Normal >=[address] [facility] Comment on above: Performed By: #### C MP #### [facility] [address] [place] [address] Dr. Domi Saleem EGFR-NON AF MALTESE >60 Normal >=60 [facility] Comment on above: Performed By: #### C MP #### [facility] [address] [place] [address] Dr. Domi Saleem Globulin (S) [Mass/Vol] 4.2 g/dL Normal [facility] Comment on above: Performed By: #### C MP #### [facility] [address] [place] [address] Dr. Domi Saleem Glucose [Mass/Vol] 124 mg/dL Critically high 74-106 [facility] Comment on above: Performed By: #### C MP #### [facility] [address] [place] [address] Dr. Domi Saleem Potassium [Moles/Vol] 4.9 mmol/L Normal 3.5-5.1 [facility] Comment on above: Performed By: #### C MP #### [facility] [address] [place] [address] Dr. Domi Saleem Protein [Mass/Vol] 7.9 g/dL Normal 6.4-8.2 [facility] Comment on above: Performed By: #### C MP #### [facility] [address] [place] [address] Dr. Domi Saleem Sodium [Moles/Vol] 136 mmol/L Normal 136-145 [facility] Comment on above: Performed By: #### C MP #### [facility] [address] [place] [address] Dr. Domi Saleem Urea nitrogen [Mass/Vol] 9.0 mg/dL Normal 7.0-18.0 [facility] Comment on above: Performed By: #### C MP #### [facility] [address] [place] [address] Dr. Domi Saleem Urea nitrogen/Creatinine [Mass ratio] 13.0 mg/mg Normal [facility] Comment on above: Performed By: #### C MP #### [facility] [address] [place] [address] Dr. Domi Saleem SED RATE [facility] 2022 SED RATE 21 mm/hr Normal <=30 [facility] Comment on above: Performed By: #### S EDR #### [facility] [address] [place] [address] Dr. Domi Saleem CHEMISTRYOrdered By: SYSTEM SYSTEM on 02-11-2022 Anion gap [Moles/Vol] 14 mmol/L Normal 6 - 16 mEq/L [facility] Remisol Calcium [...] rate/Area] mL/min/1.73 m2 Normal >=59mL/min /1.73 m2 [facility] Chem S GFR/1.73 sq M.predicted among non-blacks MDRD (S/P/Bld) [Vol rate/Area] mL/min/1.73 m2 Normal >=59mL/min /1.73 m2 [facility] Chem S Glucose [Mass/Vol] 108 mg/dL Normal 55 - 199 mg/dL [facility] Potassium [Moles/Vol] 4.0 mmol/L Normal 3.5 - 5.3 mmol/L [facility] Sodium [Moles/Vol] 130 mmol/L Low 135 - 145 mmol/L [facility] Urea nitrogen [Mass/Vol] 16 mg/dL Normal 5 - 21 mg/dL [facility] Remisol Urea nitrogen/Creatinine [Mass ratio] 20 mg/mg Normal 10 - 20 [facility] Remisol HEMATOLOGYOrdered By: John Ellsworth on 02-11-2022 Erythrocyte distribution width (RBC) [Ratio] 13.2 % Normal 10.9 - 14.2 % [facility] [employer] Hematocrit (Bld) [Volume fraction] 42.8 % Normal 34.0 - 46.0 % [facility] [employer] Hemoglobin (Bld) [Mass/Vol] 15.1 g/dL Normal 12.0 - 16.0 gm/dL [facility] [employer] MCH (RBC) [Entitic mass] 31.6 pg Normal 27.0 - 34.0 pg [facility] [employer] MCHC (RBC) [Mass/Vol] 35.2 g/dL Normal 31.4 - 36.0 gm/dL [facility] [employer] MCV (RBC) [Entitic vol] 89.7 fL Normal 80.0 - 100.0 fL [facility] [employer] Platelet mean volume (Bld) [Entitic vol] 6.8 fL Normal 6.4 - 10.8 fL [facility] [employer] Platelets (Bld) [#/Vol] 275.0 E9/L Normal 150.0 - 500.0 E9/L [facility] RBC (Bld) [#/Vol] 4.8 E12/L Normal 4.3 - 5.9 E12/L [facility] [employer] WBC corrected for nucl RBC Auto (Bld) [#/Vol] 7.3 E9/L Normal 4.0 - 11.0 E9/L [facility] [employer] CBC AUTO DIFFon 11-19-2021 BASO # 0.1 103/ul Normal 0.0-0.1 [facility] Comment on above: Performed By: #### C BC #### [facility] [address] [place] [address] Dr. Domi Saleem Basophils/100 WBC (Bld) 0.9 % Normal 0.2-2.0 [facility] Comment on above: Performed By: #### C BC #### [facility] [address] [place] [address] Dr. Domi Saleem EO # 0.2 103/ul Normal 0.0-0.7 [facility] Comment on above: Performed By: #### C BC #### [facility] [address] [place] [address] Dr. Domi Saleem Eosinophils/100 WBC (Bld) 2.4 % Normal 0.9-7.0 [facility] Comment on above: Performed By: #### C BC #### [facility] [address] [place] [address] Dr. Domi Saleem Erythrocyte distribution width (RBC) [Ratio] 12.6 % Normal 11.0-15.0 [facility] Comment on above: Performed By: #### C BC #### [facility] [address] [place] [address] Dr. Domi Saleem Hematocrit (Bld) [Volume fraction] 44.4 % Normal 36.0-48.0 [facility] Comment on above: Performed By: #### C BC #### [facility] [address] [place] [address] Dr. Domi Saleem Hemoglobin (Bld) [Mass/Vol] 15.1 g/dL Normal 12.0-16.0 [facility] Comment on above: Performed By: #### C BC #### [facility] [address] [place] [address] Dr. Domi Saleem IG # 0.04 10e3/ul Critically high 0.00-0.03 [facility] Comment on above: Performed By: #### C BC #### [facility] [address] [place] [address] Dr. Domi Saleem IG % 0.5 % Normal 0.0-0.5 [facility] Comment on above: Performed By: #### C BC #### [facility] [address] [place] [address] Dr. Domi Saleem LYMPH # 1.6 103/ul Normal 1.2-3.8 [facility] Comment on above: Performed By: #### C BC #### [facility] [address] [place] [address] Dr. Domi Saleem Lymphocytes/100 WBC (Bld) 19.1 % Critically low 20.5-60.0 [facility] Comment on above: Performed By: #### C BC #### [facility] [address] [place] [address] Dr. Domi Saleem MANUAL DIFF REQ NO Normal [facility] Comment on above: Performed By: #### C BC #### [facility] [address] [place] [address] Dr. Doim Saleem MCH (RBC) [Entitic mass] 31.5 pg Normal 26.7-34.0 [facility] Comment on above: Performed By: #### C BC #### [facility] [address] [place] [address] Dr. Domi Saleem MCHC (RBC) [Mass/Vol] 34.0 g/dL Normal 29.9-35.2 [facility] Comment on above: Performed By: #### C BC #### [facility] [address] [place] [address] Dr. Domi Saleem MCV (RBC) [Entitic vol] 92.5 fL Normal 81.0-99.0 [facility] Comment on above: Performed By: #### C BC #### [facility] [address] [place] [address] Dr. Domi Saleem MONO # 0.5 103/ul Normal 0.3-0.8 [facility] Comment on above: Performed By: #### C BC #### [facility] [address] [place] [address] Dr. Domi Saleem Monocytes/100 WBC (Bld) 6.1 % Normal 1.7-12.0 [facility] Comment on above: Performed By: #### C BC #### [facility] [address] [place] [address] Dr. Domi Saleem NEUT # 5.8 103/ul Normal 1.4-6.5 [facility] Comment on above: Performed By: #### C BC #### [facility] [address] [place] [address] Dr. Domi Saleem Neutrophils/100 WBC (Bld) 71.0 % Normal 43.0-75.0 [facility] Comment on above: Performed By: #### C BC #### [facility] [address] [place] [address] Dr. Domi Saleem Platelet mean volume (Bld) [Entitic vol] 8.7 fL Critically low 9.5-13.5 [facility] Comment on above: Performed By: #### C BC #### [facility] [address] [place] [address] Dr. Domi Saleem PLT 246 103/ul Normal 150-450 [facility] Comment on above: Performed By: #### C BC #### [facility] [address] [place] [address] Dr. Domi Saleem RBC 4.80 106/ul Normal 4.20-5.40 [facility] Comment on above: Performed By: #### C BC #### [facility] [address] [place] [address] Dr. Domi Saleem WBC 8.2 103/ul Normal 4.0-11.0 [facility] Comment on above: Performed By: #### C BC #### [facility] [address] [place] [address] Dr. Domi Saleem GLYCOHEMOGLOBIN A1Con 2021 ADA RECOMMENDATION SEE BELOW Normal [facility] Comment on above: Result Comment: ADA RECOMMENDED LIMIT 4.0 - 6.0 ADA THERAPEUTIC TARGET < 7.0 ACTION SUGGESTED > 7.0 Performed By: #### A 1C #### [facility] [address] [place] [address] Dr. Domi Saleem Glucose [Mass/Vol] 117 mg/dL Normal [facility] Comment on above: Performed By: #### A 1C #### [facility] [address] [place] [address] Dr. Domi Saleem HbA1c (Bld) [Mass fraction] 5.7 % Normal 4.5-6.2 [facility] Comment on above: Performed By: #### A 1C #### [facility] [address] [place] [address] Dr. Domi Saleem PROF 14(COMP METB)on 022 Albumin [Mass/Vol] 4.0 g/dL Normal 3.4-5.0 [facility] Comment on above: Performed By: #### C MP #### [facility] [address] [place] [address] Dr. Domi Saleem Albumin/Globulin [Mass ratio] 1.1 {ratio} Normal [facility] Comment on above: Performed By: #### C MP #### [facility] [address] [place] [address] Dr. Domi Saleem ALP [Catalytic activity/Vol] 91 U/L Normal 46-116 [facility] Comment on above: Performed By: #### C MP #### [facility] [address] [place] [address] Dr. Domi Saleem ALT [Catalytic activity/Vol] 16 U/L Normal 14-59 [facility] Comment on above: Performed By: #### C MP #### [facility] [address] [place] [address] Dr. Domi Saleem Anion gap [Moles/Vol] 10.3 mmol/L Normal [facility] Comment on above: Performed By: #### C MP #### [facility] [address] [place] [address] Dr. Domi Saleem AST [Catalytic activity/Vol] 24 U/L Normal 15-37 [facility] Comment on above: Performed By: #### C MP #### [facility] [address] [place] [address] Dr. Domi Saleem Bilirubin [Mass/Vol] 0.5 mg/dL Normal 0.2-1.0 [facility] Comment on above: Performed By: #### C MP #### [facility] [address] [address] [address] Domi Saleem Calcium [Mass/Vol] 9.1 mg/dL Normal 8.5-10.1 [facility] Comment on above: Performed By: #### C MP #### [facility] [address] [address] [address] Domi Saleem Chloride [Moles/Vol] 95 mmol/L Critically low 98-107 [facility] Comment on above: Performed By: #### C MP #### [facility] [address] [address] [address] Domi Saleem CO2 [Moles/Vol] 27.4 mmol/L Normal 21.0-32.0 [facility] Comment on above: Performed By: #### C MP #### [facility] [address] [address] [address] Domi Saleem Creatinine [Mass/Vol] 0.77 mg/dL Normal 0.55-1.02 [facility] Comment on above: Performed By: #### C MP #### [facility] [address] [address] [address] Domi Saleem EGFR-AF MALTESE >60 Normal >=60 [facility] Comment on above: Performed By: #### C MP #### [facility] [address] [address] [address] Domi Saleem EGFR-NON AF MALTESE >60 Normal >=60 [facility] Comment on above: Performed By: #### C MP #### [facility] [address] [address] [address] Domi Saleem Globulin (S) [Mass/Vol] 3.8 g/dL Normal [facility] Comment on above: Performed By: #### C MP #### [facility] [address] [place] [address] Dr. Domi Saleem Glucose [Mass/Vol] 141 mg/dL Critically high 74-106 T [facility] Comment on above: Performed By: #### C MP #### [facility] [address] [address] [address] Domi Saleem Potassium [Moles/Vol] 4.7 mmol/L Normal 3.5-5.1 [facility] Comment on above: Performed By: #### C MP #### [facility] [address] [address] [address] Domi Saleem Protein [Mass/Vol] 7.8 g/dL Normal 6.4-8.2 [facility] Comment on above: Performed By: #### C MP #### [facility] [address] [place] [address] Dr. Domi Saleem Sodium [Moles/Vol] 128 mmol/L Critically low 136-145 Th [facility] Comment on above: Performed By: #### C MP #### [facility] [address] [place] [address] Dr. Domi Saleem Urea nitrogen [Mass/Vol] 14.0 mg/dL Normal 7.0-18.0 [facility] Comment on above: Performed By: #### C MP #### [facility] [address] [place] [address] Dr. Domi Saleem Urea nitrogen/Creatinine [Mass ratio] 18.2 mg/mg Normal [facility] Comment on above: Performed By: #### C MP #### [facility] [address] [place] [address] Dr. Domi Saleem SED RATE WESTERGRENon 2021 SED RATE 34 mm/hr Critically high <=30 [facility] Comment on above: Performed By: #### S EDR #### [facility] [address] [place] [address] Dr. Domi Saleem CBC AUTO DIFFon 07-18-2021 BASO # 0.1 103/ul Normal 0.0-0.1 [facility] Comment on above: Performed By: #### C BC #### [facility] [address] [place] [address] Dr. Domi Saleem Basophils/100 WBC (Bld) 1.2 % Normal 0.2-2.0 [facility] Comment on above: Performed By: #### C BC #### [facility] [address] [place] [address] Dr. Domi Saleem EO # 0.2 103/ul Normal 0.0-0.[address] [facility] Comment on above: Performed By: #### C BC #### [facility] [address] [place] [address] Dr. Domi Saleem Eosinophils/100 WBC (Bld) 4.0 % Normal 0.9-7.[address] [facility] Comment on above: Performed By: #### C BC #### [facility] [address] [place] [address] Dr. Domi Saleem Erythrocyte distribution width (RBC) [Ratio] 12.8 % Normal 11.0-15.0 [facility] Comment on above: Performed By: #### C BC #### [facility] [address] [place] [address] Dr. Domi Saleem Hematocrit (Bld) [Volume fraction] 45.2 % Normal 36.0-48.0 [facility] Comment on above: Performed By: #### C BC #### [facility] [address] [place] [address] Dr. Domi Saleem Hemoglobin (Bld) [Mass/Vol] 15.0 g/dL Normal 12.0-16.0 [facility] Comment on above: Performed By: #### C BC #### [facility] [address] [place] [address] Dr. Domi Saleem IG # 0.02 10e3/ul Normal 0.00-0.[address] [facility] Comment on above: Performed By: #### C BC #### [facility] [address] [place] [address] Dr. Domi Saleem IG % 0.4 % Normal 0.0-0.[address] [facility] Comment on above: Performed By: #### C BC #### [facility] [address] [place] [address] Dr. Domi Saleem LYMPH # 1.1 103/ul Critically low 1.2-3.[address] [facility] Comment on above: Performed By: #### C BC #### [facility] [address] [place] [address] Dr. Domi Saleem Lymphocytes/100 WBC (Bld) 22.8 % Normal 20.5-60.[address] [facility] Comment on above: Performed By: #### C BC #### [facility] [address] [place] [address] Dr. Domi Saleem MANUAL DIFF REQ NO Normal [facility] Comment on above: Performed By: #### C BC #### [facility] [address] [place] [address] Dr. Domi Saleem MCH (RBC) [Entitic mass] 31.4 pg Normal 26.7-34.[address] [facility] Comment on above: Performed By: #### C BC #### [facility] [address] [place] [address] Dr. Domi Saleem MCHC (RBC) [Mass/Vol] 33.2 g/dL Normal 29.9-35.[address] [facility] Comment on above: Performed By: #### C BC #### [facility] [address] [place] [address] Dr. Domi Saleem MCV (RBC) [Entitic vol] 94.8 fL Normal 81.0-99.[address] [facility] Comment on above: Performed By: #### C BC #### [facility] [address] [place] [address] Dr. Domi Saleem MONO # 0.3 103/ul Normal 0.3-0.[address] [facility] Comment on above: Performed By: #### C BC #### [facility] [address] [place] [address] Dr. Domi Saleem Monocytes/100 WBC (Bld) 6.8 % Normal 1.7-12.[address] [facility] Comment on above: Performed By: #### C BC #### [facility] [address] [place] [address] Dr. Domi Saleem NEUT # 3.2 103/ul Normal 1.4-6.[address] [facility] Comment on above: Performed By: #### C BC #### [facility] [address] [place] [address] Dr. Domi Saleem Neutrophils/100 WBC (Bld) 64.8 % Normal 43.0-75.[address] [facility] Comment on above: Performed By: #### C BC #### [facility] [address] [place] [address] Dr. Domi Saleem Platelet mean volume (Bld) [Entitic vol] 8.9 fL Critically low 9.5-13.[address] [facility] Comment on above: Performed By: #### C BC #### [facility] [address] [place] [address] Dr. Domi Saleem PLT 222 103/ul Normal 150-[address] [facility] Comment on above: Performed By: #### C BC #### [facility] [address] [place] [address] Dr. Domi Saleem RBC 4.77 106/ul Normal 4.20-5.[address] [facility] Comment on above: Performed By: #### C BC #### [facility] [address] [place] [address] Dr. Domi Saleem WBC 5.0 103/ul Normal 4.0-11.[address] [facility] Comment on above: Performed By: #### C BC #### [facility] [address] [place] [address] Dr. Domi Saleem PROF 14(COMP METB)on 022 Albumin [Mass/Vol] 3.6 g/dL Normal 3.4-5.0 [facility] Comment on above: Performed By: #### C MP #### [facility] [address] [place] [address] Dr. Domi Saleem Albumin/Globulin [Mass ratio] 1.0 {ratio} Normal [facility] Comment on above: Performed By: #### C MP #### [facility] [address] [place] [address] Dr. Domi Saleem ALP [Catalytic activity/Vol] 79 U/L Normal 46-[address] [facility] Comment on above: Performed By: #### C MP #### [facility] [address] [place] [address] Dr. Domi Saleem ALT [Catalytic activity/Vol] 19 U/L Normal 14-59 [facility] Comment on above: Performed By: #### C MP #### [facility] [address] [address] [address] Domi Saleem Anion gap [Moles/Vol] 10.0 mmol/L Normal Th [facility] Comment on above: Performed By: #### C MP #### [facility] [address] [address] [address] Domi Saleem AST [Catalytic activity/Vol] 13 U/L Critically low 15-37 [facility] Comment on above: Performed By: #### C MP #### [facility] [address] [address] [address] Domi Saleem Bilirubin [Mass/Vol] 0.3 mg/dL Normal 0.2-1.0 [facility] Comment on above: Performed By: #### C MP #### [facility] [address] [address] [address] Domi Saleem Calcium [Mass/Vol] 8.4 mg/dL Critically low 8.5-10.[address] [facility] Comment on above: Performed By: #### C MP #### [facility] [address] [place] [address] Dr. Domi Saleem Chloride [Moles/Vol] 101 mmol/L Normal 98-107 [facility] Comment on above: Performed By: #### C MP #### [facility] [address] [address] [address] Domi Saleem CO2 [Moles/Vol] 31.3 mmol/L Normal 21.0-32.0 [facility] Comment on above: Performed By: #### C MP #### [facility] [address] [address] [address] Domi Saleem Creatinine [Mass/Vol] 0.75 mg/dL Normal 0.55-1.02 [facility] Comment on above: Performed By: #### C MP #### [facility] [address] [address] [address] Domi Saleem EGFR-AF MALTESE >60 Normal >=60 [facility] Comment on above: Performed By: #### C MP #### [facility] [address] [address] [address] Domi Saleem EGFR-NON AF MALTESE >60 Normal >=60 [facility] Comment on above: Performed By: #### C MP #### [facility] [address] [address] [address] Domi Saleem Globulin (S) [Mass/Vol] 3.6 g/dL Normal [facility] Comment on above: Performed By: #### C MP #### [facility] [address] [address] [address] Domi Saleem Glucose [Mass/Vol] 120 mg/dL Critically high 74-106 T [facility] Comment on above: Performed By: #### C MP #### [facility] [address] [address] [address] Domi Saleem Potassium [Moles/Vol] 5.3 mmol/L Critically high 3.5-5.1 [facility] Comment on above: Performed By: #### C MP #### [facility] [address] [address] [address] Domi Saleem Protein [Mass/Vol] 7.2 g/dL Normal 6.1-8.2 [facility] Comment on above: Performed By: #### C MP #### [facility] [address] [address] [address] Domi Saleem Sodium [Moles/Vol] 137 mmol/L Normal 136-[address] [facility] Comment on above: Performed By: #### C MP #### [facility] [address] [address] [address] Domi Saleem Urea nitrogen [Mass/Vol] 20.0 mg/dL Critically high 7.0-18.0 [facility] Comment on above: Performed By: #### C MP #### [facility] [address] [address] [address] Domi Saleem Urea nitrogen/Creatinine [Mass ratio] 26.7 mg/mg Normal [facility] Comment on above: Performed By: #### C MP #### [facility] [address] [place], [place] [address] Dr. Domi Saleem SED RATE [facility] 2021 SED RATE 13 mm/hr Normal <=[address] [facility] Comment on above: Performed By: #### S EDR #### [facility] [address] [place], [place] [address] Dr. Domi Saleem CNOVSPon 08-20-2018 CNOVSP Visit (SP) Office (H EMACL) RUMA CARLTON ([id number]) 1960 F Date Time Provider Department 08/20/18 [...] ABS GRAN CT + CBC (FOR REMOTE FOR[facility] USE) - COMP METABOLIC PANEL - PROTEIN ELECTROPHORESIS W/INTERP - IMMUNOFIXATION SCREEN, SERUM - KAPPA/GERMAIN,FREE,SER - LUPUS ANTICOAG PL 2. 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 Will check labs and see me in follow up - ABS GRAN CT + CBC (FOR REMOTE [facility] USE) - COMP METABOLIC PANEL - PROTEIN ELECTROPHORESIS W/INTERP - IMMUNOFIXATION SCREEN, SERUM - KAPPA/GERMAIN,FREE,SER - LUPUS ANTICOAG PL Ledy Gilman MD Referring Provider: CARMELITA SINGH JR [[id number]] Allergies As of Date: 08/20/2018 Noted Allergy [...] Order(s):ABS GRAN CT + CBC (FOR REMOTE [facility] USE) [SQRAGCBC] Order #: [id number] FUTURE COMP METABOLIC PANEL [SQCMP] Order #: [id number] FUTURE PROTEIN ELECTROPHORESIS W/INTERP [SQSEPG] Order #: [id number] FUTURE IMMUNOFIXATION SCREEN, SERUM [SQIFESC] Order #: [id number] FUTURE KAPPA/GERMAIN,FREE,SER [SQKLFRS] Order #: [id number] FUTURE LUPUS ANTICOAG PL [SQLUPUSP] Order #: [id number] FUTURE Disposition: Return in about 1 year [...] by LEDY GILMAN MD on 08/20/18 Normal [facility] PROGRESSon 08-20-2018 Protein mass conc HNO ID: [id number] Author: Ledy Gilman Service: ? Author Type: Physician Type: Progress Notes Filed: 08/20/2018 11:48 AM Note Text: ÁNGEL aCrlton is a 57 year old female who [...] ABS GRAN CT + CBC (FOR REMOTE [facility] USE) - COMP METABOLIC PANEL - PROTEIN ELECTROPHORESIS W/INTERP - IMMUNOFIXATION SCREEN, SERUM - KAPPA/GERMAIN,FREE,SER - LUPUS ANTICOAG PL 2. 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 Will check labs and see me in follow up - ABS GRAN CT + CBC (FOR REMOTE [facility] USE) - COMP METABOLIC PANEL - PROTEIN ELECTROPHORESIS W/INTERP - IMMUNOFIXATION SCREEN, SERUM - KAPPA/GERMAIN,FREE,SER - LUPUS ANTICOAG PL Ledy Gilman MD Normal [facility] Vital Signs Date Time Vital Sign Value Performing Clinician Facility 12-22-2024 15:23-0400 Body height 157.48 cm Anibal Chaudhary MD Work Phone: [facility] 12-22-2024 15:23-0400 Body mass index (BMI) [Ratio] 43.7 kg/m2 Anibal Chaudhary MD Work Phone: [facility] 12-22-2024 15:23-0400 Body temperature 96.9 [degF] Anibal Chaudhary MD Work Phone: [facility] 12-22-2024 15:23-0400 Body weight 108.52 kg Anibal Chaudhary MD Work Phone: [facility] 12-22-2024 15:23-0400 Diastolic blood pressure 60 mm[Hg] Anibal Chaudhary MD Work Phone: [facility] 12-22-2024 15:23-0400 Heart rate 49 /min Anibal Chaudhary MD Work Phone: [facility] 12-22-2024 15:23-0400 Respiratory rate 18 /min Anibal Chaudhary MD Work Phone: [facility] 12-22-2024 15:23-0400 SaO2% (BldA) [Mass fraction] 95 % Anibal Chaudhary MD Work Phone: [facility] 12-22-2024 15:23-0400 Systolic blood pressure 89 mm[Hg] Anibal Chaudhary MD Work Phone: [facility] 12-21-2024 11:13-0400 Body height 157.48 cm Anibal Chaudhary MD Work Phone: [facility] 12-21-2024 11:13-0400 Body mass index (BMI) [Ratio] 43.6 kg/m2 Anibal Chaudhary MD Work Phone: [facility] 12-21-2024 11:13-0400 Body weight 108.12 kg Anibal Chaudhary MD Work Phone: [facility] 12-21-2024 11:13-0400 Diastolic blood pressure 63 mm[Hg] Anibal Chaudhary MD Work Phone: [facility] 12-21-2024 11:13-0400 Heart rate 48 /min Anibal Chaudhary MD Work Phone: [facility] 12-21-2024 11:13-0400 Respiratory rate 14 /min Anibal Chaudhary MD Work Phone: [facility] 12-21-2024 11:13-0400 SaO2% (BldA) [Mass fraction] 96 % Anibal Chaudhary MD Work Phone: [facility] 12-21-2024 11:13-0400 Systolic blood pressure 96 mm[Hg] Anibal Chaudhary MD Work Phone: [facility] 05-28-2024 11:36-0500 Body height 157.48 cm [facility] 05-28-2024 11:36-0500 Body mass index (BMI) [Ratio] 46.7 kg/m2 [facility] 05-28-2024 11:36-0500 Body weight 115.83 kg [facility] 05-28-2024 11:36-0500 Diastolic blood pressure 77 mm[Hg] [facility] 05-28-2024 11:36-0500 Heart rate 77 /min [facility] 05-28-2024 11:36-0500 Respiratory rate 14 /min [facility] 05-28-2024 11:36-0500 SaO2% (BldA) [Mass fraction] 99 % [facility] 05-28-2024 11:36-0500 Systolic blood pressure 121 mm[Hg] [facility] 01-22-2024 10:09-0400 Body height 157.48 cm MD Anibal Chaudhary Work Phone: [facility] 01-22-2024 10:09-0400 Body mass index (BMI) [Ratio] 47.9 kg/m2 MD Anibal Chaudhary Work Phone: [facility] 01-22-2024 10:09-0400 Body weight 118.95 kg MD Anibal Chaudhary Work Phone: [facility] 01-22-2024 10:09-0400 Diastolic blood pressure 84 mm[Hg] MD Anibal Chaudhary Work Phone: [facility] 01-22-2024 10:09-0400 Heart rate 113 /min MD Anibal Chaudhary Work Phone: [facility] 01-22-2024 10:09-0400 SaO2% (BldA) [Mass fraction] 99 % MD Anibal Chaudhary Work Phone: [facility] 01-22-2024 10:09-0400 Systolic blood pressure 124 mm[Hg] MD Anibal Chaudhary Work Phone: [facility] 10-27-2023 13:42-0400 Body height 157.48 cm [facility] 10-27-2023 13:42-0400 Body mass index (BMI) [Ratio] 49.1 kg/m2 [facility] 10-27-2023 13:42-0400 Body weight 122.01 kg [facility] 10-27-2023 13:42-0400 Diastolic blood pressure 81 mm[Hg] [facility] 10-27-2023 13:42-0400 Heart rate 91 /min [facility] 10-27-2023 13:42-0400 Systolic blood pressure 144 mm[Hg] [facility] 08-19-2023 10:39-0400 Body height 157.48 cm MD Anibal Chaudhary Work Phone: [facility] 08-19-2023 10:39-0400 Body mass index (BMI) [Ratio] 48.4 kg/m2 MD Anibal Chaudhary Work Phone: [facility] 08-19-2023 10:39-0400 Body weight 120.2 kg MD Anibal Chaudhary Work Phone: [facility] 08-19-2023 10:39-0400 Diastolic blood pressure 80 mm[Hg] MD Anibal Chaudhary Work Phone: [facility] 08-19-2023 10:39-0400 Heart rate 73 /min MD Anibal Chaudhary Work Phone: [facility] 08-19-2023 10:39-0400 SaO2% (BldA) [Mass fraction] 98 % MD Anibal Chaudhary Work Phone: [facility] 08-19-2023 10:39-0400 Systolic blood pressure 150 mm[Hg] MD Anibal Chaudhary Work Phone: [facility] 05-08-2023 14:56-0500 Body height 157.48 cm MD Anibal Chaudhary Work Phone: [facility] 05-08-2023 14:56-0500 Body mass index (BMI) [Ratio] 42.6 kg/m2 MD Anibal Chaudhary Work Phone: [facility] 05-08-2023 14:56-0500 Body weight 105.74 kg MD Anibal Chaudhary Work Phone: [facility] 05-08-2023 14:56-0500 Diastolic blood pressure 85 mm[Hg] MD Anibal Chaudhary Work Phone: [facility] 05-08-2023 14:56-0500 Heart rate 85 /min MD Anibal Chaudhary Work Phone: [facility] 05-08-2023 14:56-0500 Systolic blood pressure 151 mm[Hg] MD Anibal Chaudhary Work Phone: [facility] 12-27-2022 14:45-0400 Body height 157.48 cm Anibal Chaudhary Other [facility] [employer] Other 12-27-2022 14:45-0400 Body mass index (BMI) [Ratio] 38.59 kg/m2 Anibal Chaudhary Other [employer] [facility] [employer] Other 12-27-2022 14:45-0400 Body weight 95.71 kg Anibal Chaudhary Other [facility] [employer] Other 12-27-2022 14:45-0400 Diastolic blood pressure 81 mm[Hg] Anibal Chaudhary Other [facility] [employer] Other 12-27-2022 14:45-0400 SaO2% (BldA) [Mass fraction] 99 % Anibal Chaudhary Other [facility] [employer] Other 12-27-2022 14:45-0400 Systolic blood pressure 116 mm[Hg] Anibal Chaudhary Other [facility] [employer] Other 12-24-2022 08:00-0400 Body temperature 98.2 [degF] MD Anibal Chaudhary Work Phone: [facility] 12-24-2022 08:00-0400 Diastolic blood pressure 78 mm[Hg] MD Anibal Chaudhary Work Phone: [facility] 12-24-2022 08:00-0400 Heart rate 93 /min MD Anibal Chaudhary Work Phone: [facility] 12-24-2022 08:00-0400 Respiratory rate 18 /min MD Anibal Chaudhary Work Phone: [facility] 12-24-2022 08:00-0400 SaO2% (BldA) [Mass fraction] 99 % MD Anibal Chaudhary Work Phone: [facility] 12-24-2022 08:00-0400 Systolic blood pressure 126 mm[Hg] MD Anibal Chaudhary Work Phone: [facility] 12-24-2022 02:42-0400 Body height 157.48 cm MD Anibal Chaudhary Work Phone: [facility] 12-24-2022 02:42-0400 Body weight 94.4 kg MD Anibal Chaudhary Work Phone: [facility] 11-15-2022 13:00-0400 Body height 157.48 cm Anibal Chaudhary Other [facility] [employer] Other 11-15-2022 13:00-0400 Body mass index (BMI) [Ratio] 39.69 kg/m2 Anibal Chaudhary Other [facility] Other 11-15-2022 13:00-0400 Body weight 98.43 kg Anibal Chaudhary Other [facility] Other 11-15-2022 13:00-0400 Diastolic blood pressure 78 mm[Hg] Anibal Chaudhary Other [facility] Other 11-15-2022 13:00-0400 Systolic blood pressure 140 mm[Hg] Anibal Chaudhary Other [facility] Other 09-12-2022 11:30-0400 Body height 157.48 cm Anibal Chaudhary Other [facility] Other 09-12-2022 11:30-0400 Body mass index (BMI) [Ratio] 39.14 kg/m2 Anibal Chaudhary Other [facility] Other 09-12-2022 11:30-0400 Body weight 97.07 kg Anibal Chaudhary Other [facility] Other 09-12-2022 11:30-0400 Diastolic blood pressure 85 mm[Hg] Anibal Chaudhary Other [facility] Other 09-12-2022 11:30-0400 Systolic blood pressure 157 mm[Hg] Anibal Chaudhary Other [facility] Other 04-29-2022 09:45-0500 Body height 157.48 cm Anibal Chaudhary Other [facility] Other 04-29-2022 09:45-0500 Body mass index (BMI) [Ratio] 47.55 kg/m2 Anibal Chaudhary Other [facility] Other 04-29-2022 09:45-0500 Body weight 117.94 kg Anibal Chaudhary Other [facility] Other 04-29-2022 09:45-0500 Diastolic blood pressure 88 mm[Hg] Anibal Chaudhary Other [facility] Other 04-29-2022 09:45-0500 SaO2% (BldA) [Mass fraction] 97 % Anibal Chaudhary Other [facility] Other 04-29-2022 09:45-0500 Systolic blood pressure 132 mm[Hg] Anibal Chaudhary Other [facility] Other 07-07-2020 07:58-0400 Body height 160.02 cm Anibal Chaudhary Work Phone: [facility] 07-07-2020 07:58-0400 Body weight 97.06 kg Anibal Chaudhary Work Phone: [facility] Encounters Encounter Date Encounter Type Care Provider Facility Start: 12-22-2024 End: 12-22-2024 ambulatory Anibal Chaudhary MD Work Phone: [facility] Work Phone: Start: 12-22-2024 End: 12-22-2024 Patient encounter procedure Ramy Santacruz MD -[facility] Work Phone: Start: 12-21-2024 End: 12-21-2024 ambulatory Anibal Chaudhary MD Work Phone: [facility] Work Phone: Start: 12-21-2024 End: 12-21-2024 Patient encounter procedure Anibal Chaudhary MD -[facility] Work Phone: Start: 12-14-2024 End: 12-14-2024 ambulatory KARON ADAMS [facility] Start: 10-12-2024 Non-patient / Non-visit [facility] Work Phone: Start: 08-31-2024 End: 08-31-2024 ambulatory [facility] Start: 08-04-2024 End: 08-04-2024 ambulatory [facility] Start: 07-[facility] Start: 07-21-2024 End: 07-21-2024 ambulatory MARCELLO [facility] Start: 06-29-2024 End: 06-29-2024 ambulatory [facility] Start: 05-28-2024 End: 05-28-2024 ambulatory [facility] Work Phone: Start: 05-28-2024 End: 05-28-2024 Patient encounter procedure [facility] Work Phone: Start: 05-26-2024 End: 05-26-2024 ambulatory [facility] Start: 05-20-2024 Non-patient / Non-visit [facility] Work Phone: Start: 05-20-2024 End: 05-20-2024 ambulatory [facility] Start: 05-17-2024 Non-patient / Non-visit [facility] Work Phone: Start: 05-12-2024 Evaluation and management of inpatient YASH CAMILO [facility] Start: 05-12-2024 Non-patient / Non-visit [facility] Work Phone: Start: 05-11-2024 End: 05-14-2024 Evaluation and management of inpatient DARY AMARAL [facility] Start: 05-11-2024 End: 05-11-2024 Non-patient / Non-visit [facility] Work Phone: Start: 05-11-2024 Non-patient / Non-visit [facility] Work Phone: Start: 05-10-2024 Non-patient / Non-visit [facility] Work Phone: Start: 02-05-2024 End: 02-05-2024 ambulatory DAYA [facility] Start: 01-22-2024 End: 01-22-2024 ambulatory MD Anibal Chaudhary Work Phone: [facility] Work Phone: Start: 01-22-2024 End: 01-22-2024 Patient encounter procedure MD Anibal Chaudhary Work Phone: [facility] Work Phone: Start: 01-21-2024 Non-patient / Non-visit MD Anibal Chaudhary Work Phone: [facility] Work Phone: Start: 01-08-2024 End: 01-08-2024 ambulatory AGUEDA ZUÑIGA [facility] Start: 01-08-2024 Non-patient / Non-visit MD Anibal Chaudhary Work Phone: [facility] Work Phone: Start: 12-30-2023 Evaluation and management of inpatient [facility] Start: 12-29-2023 Evaluation and management of inpatient [facility] Start: 12-29-2023 Evaluation and management of inpatient [facility] Start: 12-28-2023 Evaluation and management of inpatient RHONDA BARNES [facility] Start: 12-28-2023 Evaluation and management of inpatient RHONDA BARNES [facility] Start: 12-27-2023 Evaluation and management of inpatient AGUEDA ZUÑIGA [facility] Start: 12-26-2023 Evaluation and management of inpatient AGUEDA ZUÑIGA [facility] Start: 12-26-2023 Evaluation and management of inpatient AGUEDA RIVERAOTF [facility] Start: 12-25-2023 Evaluation and management of inpatient ALAN [facility] Start: 12-25-2023 Evaluation and management of inpatient AGUEDA Miramontes FOSTERMONO [facility] Start: 12-24-2023 Evaluation and management of inpatient RIAN BUTTS [facility] Start: 12-23-2023 Evaluation and management of inpatient [facility] Start: 12-22-2023 Evaluation and management of inpatient [facility] Start: 12-21-2023 Evaluation and management of inpatient [facility] Start: 12-19-2023 [facility] Start: 12-18-[facility]23 [facility]: 12-18-2023 Evaluation and management of inpatient [facility] Start: 12-17-2023 Evaluation and management of inpatient ALAN [facility] Start: 12-16-2023 Evaluation and management of inpatient ALAN [facility] Start: 12-16-2023 Evaluation and management of inpatient ALAN [facility] Start: 12-04-2023 End: 12-04-2023 Patient encounter procedure MD Anibal Chaudhary Work Phone: [facility] Work Phone: Start: 12-04-2023 End: 12-04-2023 ambulatory MD Anibal Chaudhary Work Phone: [facility] Work Phone: Start: 12-02-2023 End: 12-02-2023 Departed Referred MD Anibal Chaudhary Work Phone: [facility] [place] Work Phone: Start: 12-02-2023 End: 12-02-2023 Patient encounter procedure MD Anibal Chaudhary Work Phone: [facility] Work Phone: Start: 12-02-2023 End: 12-02-2023 ambulatory MD Anibal Chaudhary Work Phone: [facility] Work Phone: Start: 11-03-2023 End: 11-03-2023 Patient encounter procedure MD Anibal Chaudhary Work Phone: [facility] Work Phone: Start: 11-03-2023 End: 11-03-2023 ambulatory MD Anibal Chaudhary Work Phone: [facility] Work Phone: Start: 10-27-2023 End: 10-27-2023 ambulatory [facility] Work Phone: Start: 10-27-2023 End: 10-27-2023 Patient encounter procedure [facility] Work Phone: Start: 09-07-2023 Non-patient / Non-visit [facility] Work Phone: Start: 08-19-2023 End: 08-19-2023 ambulatory MD Anibal Chaudhary Work Phone: [facility] Work Phone: Start: 08-19-2023 End: 08-19-2023 Patient encounter procedure MD Anibal Chaudhary Work Phone: [facility] Work Phone: Start: 07-10-2023 Non-patient / Non-visit MD Anibal Chaudhary Work Phone: [facility] Work Phone: Start: 07-08-2023 End: 07-08-2023 Patient encounter procedure MD Anibal Chaudhary Work Phone: [facility] Start: 07-08-2023 End: 07-08-2023 ambulatory MD Anibal Chaudhary Work Phone: [facility] Work Phone: Start: 06-04-2023 End: 06-04-2023 ambulatory JOSH POCOS Not Available Start: 05-29-2023 End: 08-27-2023 ambulatory Josh Pocos Facility:[facility] Start: 05-29-2023 End: 08-27-2023 Recurring Josh Pocos [facility] Start: 05-29-2023 End: 05-29-2023 ambulatory ANIBAL CHAUDHARY Facility:[facility] Start: 05-29-2023 End: 05-29-2023 Patient encounter procedure Josh Pocos [facility] Start: 05-16-2023 End: 05-16-2023 ambulatory JOSH POCOS Not Available Start: 05-08-2023 End: 05-08-2023 ambulatory MD Anibal Chaudhary Work Phone: [facility] Work Phone: Start: 05-08-2023 End: 05-08-2023 Patient encounter procedure MD Anibal Chaudhary Work Phone: [facility] Work Phone: Start: 02-25-2023 End: 02-25-2023 Departed Referred MD Anibal Chaudhary Work Phone: [facility] Work Phone: Start: 02-25-2023 End: 02-25-2023 ambulatory MD Anibal Chaudhary Work Phone: [facility] Work Phone: Start: 02-11-2023 End: 02-11-2023 ambulatory Anibal Chaudhary Other [facility] Other Start: 02-11-2023 Telephone encounter Anibal Chaudhary [facility] Start: 12-27-2022 End: 12-27-2022 ambulatory Anibal Chaudhary Other [facility] Other Start: 12-27-2022 Office outpatient visit 25 minutes Anibal Chaudhary [facility] Start: 12-25-2022 End: 12-25-2022 ambulatory Anibal Chaudhary [facility] Other Start: 12-25-2022 Telephone encounter Anibal Chaudhary [facility] Start: 12-24-2022 End: 12-24-2022 Evaluation and management of inpatient MD Anibal Chaudhary Work Phone: [facility] Work Phone: Start: 12-24-2022 End: 12-24-2022 observation encounter MD Anibal Chaudhary Work Phone: [facility] Work Phone: Start: 12-24-2022 End: 12-24-2022 ambulatory Petr Kowalski Facility:[facility] Start: 12-20-2022 End: 12-20-2022 ambulatory Anibal Chaudhary Other [facility] Other Start: 12-20-2022 Telephone encounter Anibal Chaudhary [facility] Start: 11-15-2022 End: 11-15-2022 ambulatory Anibal Chaudhary [facility] Other Start: 11-15-2022 Office outpatient visit 15 minutes Anibal Chaudhary [facility] Start: 09-12-2022 End: 09-12-2022 ambulatory Anibal Chaudhary [facility] Other Start: 09-12-2022 Office outpatient visit 25 minutes Anibal Chaudhary [facility] Start: 09-12-2022 Telephone encounter Anibal Chaparro [facility] Start: 07-04-2022 End: 07-04-2022 ambulatory Anibal Chaudhary [facility] Other Start: 07-04-2022 Telephone encounter Anibal Chaparro [facility] Start: 06-18-2022 End: 06-18-2022 ambulatory Virgilio Mckeon Other [facility] Other Start: 06-18-2022 Telephone encounter Virgilio Mckeon [facility] Start: 05-30-2022 End: 05-30-2022 ambulatory Anibal Chaudhary Other [facility] Other Start: 05-30-2022 Telephone encounter Anibal Chaparro [facility] Start: 05-27-2022 End: 05-28-[address] DOCTOR VERAS Facility: Start: 04-29-2022 End: 04-29-2022 ambulatory Anibal Chaparro Other [facility] Other Start: 04-29-2022 Office outpatient visit 15 minutes Anibal Chaparro [facility] Start: 04-29-2022 Telephone encounter Anibal Chaparro [facility] Start: 02-11-2022 ambulatory Facility:[id number] Start: 02-11-2022 End: 02-11-2022 Patient encounter procedure Yany Cuellar [facility] Start: 01-07-2022 End: 01-26-2022 Pre-admission assessment Yany Cuellar [facility] Start: 11-20-2021 Adult health examination Anibal Chaudhary Other [facility] Other Start: 11-20-2021 Encounter for genera l adult medical examination without abnormal findings DR DOCTOR VERAS [facility] Start: 11-19-2021 End: 11-20-2021 ambulatory ANIBAL CHAUDHARY Facility:[facility] Start: 11-19-2021 End: 11-20-2021 Encounter for general adult medical examination without abnormal findings DR DOCTOR VERAS Facility:[facility] Start: 07-18-2021 End: 07-19-[address] DOCTOR VERAS Facility:[facility] Start: 07-07-2020 End: 07-07-2020 Patient encounter procedure Anibal Chaudhary Work Phone: -[facility] [place] Procedures Date Procedure Procedure Detail Performing Clinician [...] Activity Detail Author Start: 12-21-2024 Patient referral [facility] Work Phone: Start: 12-03-2023 [facility] Start: 11-03-2023 [facility] Start: 07-08-2023 [facility] Start: 12-24-2022 [facility] Start: 12-24-2022 Hospital admission [facility] Start: 12-24-2022 [facility] Start: 12-24-2022 Sleep disorder assessment [facility] 25-hydroxyvitamin D2 [Mass/volume] in Serum or Plasma [facility] 25-hydroxyvitamin D3 [Mass/volume] in Serum or Plasma [facility] 25-Hydroxyvitamin D3+25-Hydroxyvitamin D2 [Mass/volume] in Serum or Plasma [facility] Comprehensive metabo lic 2000 panel - Serum or Plasma [facility] Glucose measurement estimated from glycated hemoglobin [facility] MG Breast - bilateral Screening [facility] Patient referral [facility] Work Phone: Renal function 2000 panel - Serum or Plasma [facility] Thyrotropin [Units/v olume] in Serum or Plasma [facility] Thyroxine (T4) free index in Serum or Plasma by calculation [facility] Thyroxine measurement [facility] Triiodothyronine (T3 ) [Mass/volume] in Serum or Plasma [facility] Triiodothyronine res in uptake (T3RU) in Serum or Plasma [facility] US Kidney - [facility] Payers Date Payer Category Payer Medicaid [id number] 2022 Self-pay [id number] 1960 Unknown [id number] 2.16. [id number] 1960 Unknown [id number] 2.16.84 0.1.246640.3.579.2.593 1960 Unknown [id number] 2.16.84 0.1.061434.3.579.2.593 1960 Unknown [id number] 2.16.84 0.1.852497.3.579.2.593 1960 Unknown [id number] 2.16.84 0.1.704459.3.579.2.593 1960 Unknown [id number] 2.16.84 0.1.815190.3.579.2.1259 1960 Unknown [id number] 2.16.84 0.1.185430.3.579.2.1259 1961 Unknown [id number] 2.16.84 0.1.400423.3.579.2.1259 1961 Unknown [id number] 2.16.84 0.1.679366.3.579.2.1259 1961 Unknown [id number] 2.16.8 40.1.395843.3.579.2.727 1960 Unknown [id number] 2.16.8 40.1.998081.3.579.2.727 1959 Unknown [id number] Private Health Insurance [id number] Unknown [id number] Unknown [id number] 2.16.8 40.1.002631.3.579.2.531 Unknown [id number] 2.16.8 40.1.801952.3.579.2.531 Unknown [id number] 2.16.8 40.1.248610.3.579.2.531 Unknown [id number] 2.16.8 40.1.653964.3.579.2.531 Unknown [id number] 2.16.8 40.1.699078.3.579.2.531 Unknown [id number] 2.16.8 40.1.249674.3.579.2.531 Unknown [id number] 2.16.8 40.1.272200.3.579.2.531 Social History Date Type Detail Facility Tobacco smoking stat [facility] Unknown if ever smoked [facility] Start: 1960 Sex Assigned At Female F [facility] Tobacco smoking status No Smokin g Status Entered [facility] Sex Assigned At Female [facility] Start: 12-24-2022 End: 12-24-2022 Tobacco smoking status SCIS Current some day smoker [facility] Start: 12-27-2022 End: 12-27-2022 Tobacco smoking status NHIS Smoker (finding) [facility] Start: 05-28-2024 Sex Female (finding) [facility] Start: 12-21-2024 Tobacco smoking stat us SCIS Smokes tobacco daily (finding) [facility] Start: 12-22-2024 Tobacco smoking stat us SCIS Ex-smoker (finding) [facility] Goals Date Patient Goal Desired Activity /State Functional Status Date Assessment Result Facility 12-24-2022 Functional status Patient at Baseline [facility] Work Phone: Mental Status Date Assessment Result Facility 12-24-2022 Cognitive function Cognitive Sta tus Patient at Baseline [facility] Work Phone: Clinical Notes 04-29-2022 to 12-21-2024 Note Date & Type Note Facility 12-21-2024 Evaluation note Diagnosis Onset Date Resolution Abnormal TSH acute December 212024 11:25am COPD (chronic obstructive pulmonary disease) acute December 21, 2024 11:25am Dyspnea on exertion acute Septe 2024 11:25am Screening mammogram for breast cancer acute December 21, 2024 11:25am CAD (coronary artery disease) acute December 22 3:21pm [facility] Work Phone: 1(620) 419-988809-23-2025 [facility] 08-31-2024 [facility]05-14-2025 NoteK[facility]04-08-2025 [facility] 05-26-2024 NoteK[facility]03-05-2025 NoteUnOhio[facility]02-27-2025 [facility] 05-20-2024 NoteK[facility]02-21-2025 NoteAttempted to delete note. Left incomplete.[facility]02-20-2025 Note [facility]02-20-2025 NoteUnOhioHealth Marion [facility] Hospital02-19-2025 NoteUnOhio[facility]02-19-2025 Note [facility]02-19-2025 NoteCase was discussed with the ADEBAYO on 05/11/2024. I agree with the history, physical, assessment, and plan of care. I discussed the findings and therapeutic plan. I agree with the documentation, except for any updates below. Rao Foster MDUnOhioHealth [facility] Hospital02-19-2025 Note [facility]02-19-2025 NotePer primary team to consider addition of CPAP/BiPAP nightlyUnOhioHealth [facility] Hospital02-19-2025 Note Continue diuresis as above Supplemental O2 at 2-4 L/min via nasal cannula as neededUnOhioHealth [facility] Hospital02-19-2025 NoteContinue with home medication, levothyroxine 50 mcg tablet p.o. dailyUnOhioHealth [facility] Hospital02-19-2025 NoteInsulin lispro per sliding scale before meals and at bedtime. Continue home medication Januvia 100 mg p.o. dailyUnOhioHealth Marion General Hospital11-14-2024 NoteK[facility]10-17-2024 Note [facility]10-08-2024 NoteUnOhioHealth [facility] Hospital10-08-2024 NoteK[facility]10-08-2024 Note Occupational Therapy Name: Ruma Carlton Date of : 1960 Today's Date: 12/30/23 Pt is unable to be seen for therapy at this time secondary to Discharging @ 1530. Check No Charge Time attempted: 1325UnOhioHealth [facility] Hospital10-08-2024 NoteK[facility]10-08-2024 [facility] 12-29-2023 NoteK[facility]10-07-2024 NoteK[facility]10-07-2024 NoteK[facility] 12-29-2023 NoteK[facility]10-07-2024 NoteK[facility]10-07-2024 NoteAddendum created 12/29/23 0920 by Mario Bermudez MD Attestation recorded in Intraprocedure (Anesthesia), Intraprocedure Attestations filed (Anesthesia), Intraprocedure Event edited, Intraprocedure Staff edited, Intraprocedure Staff edited (Anesthesia)[facility]10-07-2024 NoteUnOhioHealth [facility] Hospital10-06-2024 Note [facility]10-06-2024 NoteCTS: Patient seen and examined post left pigtail catheter removal I concur with the xray report and do not see any pneumothorax. Lungs CTA bilaterally Dressing dry and intact Satting 98% on room air Updated daughter at bedside.[facility]10-06-2024 Note Sent updates to [facility]. They have pre-cert which is good through Friday 12/29. Awaiting medical readiness.[facility]10-06-2024 NoteUnOhioHealth [facility] Hospital10-06-2024 Note [facility]10-05-2024 NoteUnOhioHealth [facility] Hospital10-05-2024 NoteUnOhioHealth [facility]10-05-2024 Note [facility]10-05-2024 NoteUnOhioHealth [facility] Hospital10-04-2024 NoteUnOhioHealth [facility] Hospital10-04-2024 Note [facility]10-04-2024 NoteUpdates sent to [facility]. Patient still has chest tube in place. Awaiting Pulmonary to see patient today. SW continues to follow.[facility]10-04-2024 NoteUnOhioHealth [facility] Hospital10-04-2024 Note [facility]10-04-2024 NoteUnOhioHealth [facility]10-03-2024 NoteUnOhioHealth [facility]10-03-2024 Note [facility]10-03-2024 NoteUnOhioHealth [facility]10-03-2024 NoteUnOhioHealth [facility]10-03-2024 Note [facility]10-03-2024 NoteUnOhioHealth [facility]10-03-2024 NoteUnOhioHealth [facility]10-02-2024 Note [facility]10-02-2024 NoteK[facility]10-02-2024 NoteAwaiting precert for RHNWO. Per CT Surgery patient should be medically ready for discharge on 12/24. SW following.[facility] 12-24-2023 NoteA. Satisfactory for evaluation. Examination of the ThinPrep slide and cell block reveals reactive mesothelial cells in a background of marked acute inflammation.[facility] CenterComment on above:Performed By: #### LAB13 ####[facility] ([facility])[address] [place] [address] 12-24-2023 NoteUnOhioHealth [facility] General Hospital10-02-2024 NoteK[facility]10-02-2024 NoteK[facility] 12-24-2023 NoteK[facility]10-01-2024 NoteK[facility]10-01-2024 NoteK[facility] 12-23-2023 NoteK[facility]10-01-2024 NoteK[facility]09-30-2024 NoteK[facility] 12-22-2023 NoteK[facility]09-30-2024 NoteK[facility]09-30-2024 NoteK[facility] 12-22-2023 NoteK[facility]09-30-2024 NoteK[facility]09-29-2024 NoteK[facility] 12-20-2023 NoteK[facility]09-28-2024 NoteK[facility]09-28-2024 NoteK[facility] 12-19-2023 NoteK[facility]09-27-2024 NoteK[facility]09-27-2024 NoteK[facility] 12-19-2023 NoteK[facility]09-27-2024 NoteK[facility]09-26-2024 NoteK[facility] 12-18-2023 NoteUnOhioHealth [facility] Hospital09-26-2024 NoteUnOhioHealth [facility] Hospital09-26-2024 NoteOccupational Therapy Name: Ruma Carlton Date of : 1960 Today's Date: 12/18/23 Pt is unable to be seen for therapy at this time secondary to Pt currently off floor for testing Check No Charge Time attempted: 1407UnOhioHealth [facility] Hospital09-26-2024 NoteK[facility]09-26-2024 NoteEcho attempted bedside @10:45 am. Patient in chair, called RN but busy, unable to get patient back in bed for test. Will try again later.[facility]09-26-2024 NoteK[facility]09-26-2024 Note [facility]09-25-2024 NoteUnOhioHealth [facility] Hospital09-25-2024 NoteK[facility]09-25-2024 Note [facility]09-25-2024 NoteK[facility]09-24-2024 NoteK[facility]09-24-2024 Note [facility]09-24-2024 NoteK[facility]09-23-2024 NoteK[facility]11-21-2023 Evaluation note* Encounter Date Diagnosis Assessment Notes Treatment Notes Treatment Clinical Notes Jan, Acute pain of right hip (ICD-10 - M25.551) [facility] Other 10-06-2023 Evaluation note* Encounter Date Diagnosis [...] monitor results and followup in 3-4 weeks. [employer] [facility] Other 10-04-2023 Evaluation note* Encounter Date Diagnosis Assessment Notes Treatment Notes Treatment Clinical Notes Dec, Depressive disorder (ICD-10 - F32.A) [facility] Other 10-03-2023 History and physical note Author Froilan Brown [facility] December 24, 2022 4:06am Note Date/Time December 24, 2022 3: 58am [facility] [address] [place] [address] Hospitalist H&P Signed Patient: Ruma Carlton MR#: [id number] : 1960 Acct:[id number] Age/Sex: 62 / F Adm Date: 3 Loc: Room: [address] [place] [address] Type: ADM IN Attending Dr: Froilan Brown MD Copies to: MD Anibal Mosquera MD~ HPI DATE OF EXAMINATION: 12/24/22 CHIEF COMPLAINT: fall HISTORY OF PRESENT ILLNESS: The patient is a 62 year old woman with a history of HTN, DVT/PE on xarelto, POTS, NIDDM2, paroxysmal SVT who presented to [place] ED after a fall. Per the patient [...] got up from sleeping to walk to [facility] and fell- pt reports she felt wobbly after taking the flexeril. shedid not lose consciousness or feel dizzy and denies any chest pain or shortness of breath. Pt's right hip pain worsened over the course of Friday so she went to [place] ER for evaluation on arrival there vital [...] feels improved after she got tylenol at [place]- the patient is somewhat irritated at being [...] were negative except as noted in the [facility] Medical History Apnea Arthritis Back pain Depression [...] thrombosis): (5) Hyponatremia: Plan: mild (126 at [place])- ?medication related Plan - admit to medicine - monitor on telemetry - restart home medications - will check STAT troponin now. if it is markedly increased compared to at [place], would ask cardiology to see pt. if [...] signed by Froilan Brown MD> 12/24/22 0406 [facility] Work Phone: [phone]) 936-251309-29-2023 Evaluation note* Encounter Date Diagnosis Assessment Notes Treatment Notes Treatment Clinical Notes Nov, Depressive disorder (ICD-10 - F32.A) [facility] Other 08-25-2023 Evaluation note* Encounter Date Diagnosis Assessment Notes Treatment Notes Treatment Clinical Notes Oct, Depressive disorder (ICD-10 - F32.A) Mood improved. 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 She hasn't rec'd the midodrine yet, but will start it and followup w [facility] cardio [facility] Other 06-22-2023 Evaluation note* Encounter Date Diagnosis [...] the past (years ago). Requests a refill. [facility] Other 02-06-2023 Evaluation note* Encounter Date Diagnosis [...] ENT eval if area does not resolve. 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 [facility] Assessments Information Available [facility] noteNo InformationNortGeisinger Community Medical Center [employer] Other Evaluation note* Diagnosis Onset Date Resolution Status Elevated troponin acute Fall acute Hyponatremia acute Personal history of DVT (deep vein thrombosis) acute Right hip pain acute [facility] Work Phone: Evaluation noteNo assessment information available [facility] Work Phone: [email or web address] note* Diagnosis Onset Date Resolution Status Anxiety acute Bilateral primary osteoarthritis of knee acute Depression acute Right hip pain acute [facility] Work Phone: Evaluation note* Diagnosis Onset Date Resolution Status Abnormal TSH acute Arthritis, rheumatoid acute Lower extremity edema acute Urinary frequency acute [facility] Work Phone: Evaluation note* Diagnosis Onset Date Resolution Status Abnormal TSH acute Arthritis, rheumatoid acute Lower extremity edema acute Urinary frequency acute Abnormal TSH acute Diabetes mellitus, type 2 ac [place] Hypertension acute [facility] Work Phone: Evaluation note* Diagnosis Onset Date Resolution Status Abnormal TSH acute Arthritis, rheumatoid acute Lower extremity edema acute Urinary frequency acute Abnormal TSH acute Arthritis, rheumatoid acute Diabetes mellitus, type 2 ac [place] Hypertension acute [facility] Work Phone: Evaluation note* Diagnosis Onset Date Resolution Status Abnormal TSH acute Arthritis, rheumatoid acute Diabetes mellitus, type 2 ac [place] Hypertension acute [facility] Work Phone: Evaluation note* Diagnosis Onset Date Resolution Status Admit Date Abnormal TSH acute December 212024 11:25am Screening mammogram for breast cancer acute December 21, 2024 11:25am [facility] Work Phone: History general Narrative [...] rele ase 02/2022 Hospitalization History see above [facility] Other His[facility]eed general Narrative - Reported* Type Description Date [...] rele ase 02/2022 Hospitalization History see above [facility] Other Hospital Discharge instructions No data available for this section [facility] No data available for this section [facility] Author Petr Kowalski [facility] December 24, 2022 11:58am Note Date/Time December 24, 2022 11 :58am [facility] [address] [place], [place] [id number] Hospitalist Progress Note Signed Patient: Ruma Carlton MR#: [id number] : 1960 Acct:[id number] Age/Sex: 62 / F Adm Date: 3 Loc: Room: 7N1630-9 Type: ADM INOo Attending Dr: Petr Kowalski MD Copies to: ~ Date of Service: 12/24/2022 Subjective Subjective Narrative: The patient is a 62 year old woman with a history of HTN, DVT/PE on xarelto, POTS, NIDDM2, paroxysmal SVT who presented to [place] ED after a fall. Per the patient [...] got up from sleeping to walk to [facility] and fell- pt reports she felt wobbly after taking the flexeril. shedid not lose consciousness or feel dizzy and denies any chest pain or shortness of breath. Pt's right hip pain worsened over the course of Friday so she went to [place] ER for evaluation On arrival there vital [...] feels improved after she got Tylenol at [place]- the patient is somewhat irritated at being [...] to the fall. Her CT head at [place] was unremarkable for ICH patient remained stable [...] 08:59 50 mg DAILY SANAZ Administration Pyridostigmine [place] 120 mg 12/24/22 09:00 12/24/22 08:36 Pyridostigmine [place] 60 Mg Tablet PO 12/24/23 08:59 120 [...] thrombosis): (5) Hyponatremia: Plan: mild (126 at [place])- ?medication related Plan -Repeat Troponin here WNL. Sodium level WNL -CT head done at [place] with no evidence of intracranial bleed. Patient remained stable with no focal deficits -X-ray of the hip done at [place] with no evidence of fracture dislocation -Patient [...] <Electronically signed by Petr Kowalski MD> 12/24/22 1152 [facility] Work Phone: Reason for referral (narrative)No reason for referral information availableSouthwest General Health Center Work Phone: Summary Purpose Family History [...] R06.9 Amb Documentation CC Adult Risk Stratification [facility]:CABG-HIGH RISK Reason for Visit Abnormal TSH Arthritis, rheumatoid Diabetes mellitus, type 2 Hypertension Chief Complaint Admit Date Amb Documentation May 17, 2024 1:57pm [facility]; heart failure-HIGH RISK May [...] section and content) DATE CREATED AUTHOR 08/29/2018 [facility] DATE CREATED AUTHOR AUTHOR'S ORGANIZ ATION 03/20/2022 [facility] DATE CREATED AUTHOR AUTHOR'S ORGANIZ ATION 05/29/2022 [facility] DATE CREATED AUTHOR AUTHOR'S ORGANIZ ATION 06/05/2023 [facility] DATE CREATED AUTHOR AUTHOR'S ORGANIZ ATION 08/29/2023 [facility] DATE CREATED AUTHOR AUTHOR'S ORGANIZ ATION 12/16/[address] [facility] DATE CREATED AUTHOR AUTHOR'S ORGANIZ ATION 12/14/2024 [facility] Patient Care team informatio n [...] 25, 2023 End: February 25, 2023 Outreach [facility] Attending Provider Active Sta rt: February 25, [...] Status: Inactive Member Role Status Dates Anibal Chaudhray MD Primary Care Provide r, Attending Provider [...] BE BASED ON THE PRIMARY CLINICAL RECORDS. [employer] provides no warranty or guarantee of the accuracy or completeness of information in this document.
[2024-12-29 13:45] LABS: Thyroid Stimulating Hormone 9.512 uIU/mL (0.358-3.740)
== END 2024-12-29 12:29 | disposition home or self-care (01) ==
PROVIDERS: PCP Family Medicine; Visit Provider Family Medicine
DX: R79.89 Other specified abnormal findings of blood chemistry (principal)
CPT/HCPCS: 36415; 84439; 84443

== ENCOUNTER 2024-12-31 06:56 | Outpatient (RCR) | payer OTHER, SELFPAY ==
--- NOTE | 2024-04-29 15:17 | CR1_ITS ---
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
--- NOTE | 2024-05-26 16:06 | CR1_ITS ---
The [facility] Test Date: 2024-05-26 Pat Name: NICOLAS HARRIS Department: Room: - Gender: Female Electronic Funds Transfer Coordinator: : 1960 Requested By: DOMINIK HALL Order Number: [id number] Reading MD: DOMINIK HALL Interpretive Statements Session Date: Electronically Signed On 06-03-2024 22:37:19 EDT by DOMINIK HALL
--- NOTE | 2024-06-23 09:43 | CR1_ITS ---
The [facility] Test Date: 2024-06-23 Pat Name: NICOLAS HARRIS Department: Room: - Gender: Female Cone Worker: : 1960 Requested By: ANIBAL CHAUDHARY Order Number: [id number] Laquita MD: DOMINIK HALL Interpretive Statements Session Date: Electronically Signed On 07-04-2024 19:58:46 EDT by DOMINIK HALL
--- NOTE | 2024-06-23 13:33 | CR1_ITS ---
[facility] Test Date: 2024-06-23 Pat Name: NICOLAS HARRIS Department: Room: - Gender: Female Clerk Operator: : 1960 Requested By: DOMINIK HALL Order Number: [id number] Laquita MD: DOMINIK HALL Interpretive Statements Session Date: Electronically Signed On 07-04-2024 19:58:51 EDT by DOMINIK HALL
--- NOTE | 2024-07-21 07:41 | CR1_ITS ---
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 Electronically Signed On 07-21-2024 14:37:02 EDT by Josh Alvarado
--- NOTE | 2024-08-26 07:54 | CR1_ITS ---
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 No changes required to the outlined treatment plan. Electronically Signed On 08-26-2024 10:58:44 EDT by Josh Alvarado
--- NOTE | 2024-09-20 14:20 | CR1_ITS ---
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 Patient is strongly encouraged to return to cardia rehabilitation as schedule. Electronically Signed On 09-29-2024 10:17:58 EDT by Josh Alvarado
--- NOTE | 2024-10-21 08:45 | CR1_ITS ---
The [facility] Test Date: 2024-10-21 Pat Name: NICOLAS HARRIS Department: Room: - Gender: Female Legend Maker: : 1960 Requested By: IKE CARPENTER Order Number: [id number] Laquita MD: RICK LAMA M.D. Interpretive Statements Patient may continue cardiac rehab as outlined in the treatment plan. Electronically Signed On 10-29-2024 10:22:57 EDT by RICK LAMA M.D.
--- NOTE | 2024-11-19 08:23 | CR1_ITS ---
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 Order Number: [id number] Reading MD: Yvette Gale Interpretive Statements Session Date: Electronically Signed On 11-19-2024 13:28:41 EDT by Yvette Gale
--- NOTE | 2024-12-20 08:16 | CR1_ITS ---
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 Interpretive Statements Patient may continue cardiac rehab as outlined in the treatment plan. Electronically Signed On 12-21-2024 20:04:34 EDT by RICK LAMA M.D.
--- NOTE | 2024-12-31 07:15 | CR1_ITS ---
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 Order Number: [id number] Laquita MD: RICK LAMA M.D. Interpretive Statements Electronically Signed On 01-03-2025 13:00:26 EDT by RICK LAMA M.D.
== END 2024-12-31 11:10 | disposition home or self-care (01) ==
LOC: CR 06:56
PROVIDERS: PCP Family Medicine
DX: E78.2 Mixed hyperlipidemia (principal); Z95.1 Presence of aortocoronary bypass graft; E66.9 Obesity, unspecified; Z68.42 Body mass index [BMI] 45.0-49.9, adult; I25.10 Atherosclerotic heart disease of native coronary artery without angina pectoris
CPT/HCPCS: 36415; 80053; 80061; 93798

== ENCOUNTER 2025-01-26 16:17 | Outpatient (OUT) | payer OTHER, SELFPAY ==
--- OUTSIDE RECORDS SUMMARY | 2024-05-27 07:30 | XMS_ITS ---
Author Organization [employer] Address [address] [place] [address] Care Team Providers Care Psychology Tech Name Role Phone Pam Wagoner Primary Care Provider [phone] REASON FOR VISIT 3 month f/u Encounters Encounter Location Date Provider Diagnosis [facility] [address] [place] [address] 05/27/2024 Pam Wagoner Plan Of Treatment Next Appt Details Provider Name:Kelsey Fernandez Elverlizzy arvind, 02/03/2025 11:45:00 AM, [address] [place], [address], Progress Notes * NICOLAS HARRISDOB:1960 ( 64 yo F)Acc No.[id number]:05/27/2024 Behavioral Health Patient: Jossie FRANCIS NICOLAS Provider:Efren WagonerDOB:1960???Age:63 Y ???Sex:FemaleDate:05/27/2024Phone:[phone]:[address] [facility] [address], [place], [id number] Subjective: * Chief Complaints: * 3 month f/u * Electronic signature of YVES Fisher on 01/26/2025 at 04:21 PM ESTSign off status: Pending * Appointment Provider: Isabel Wagoner Date: 0 05/27/2024 Generated for Printing/Faxing/eTransmitting on:?01/26/2025 04:21 PM EST
--- OUTSIDE RECORDS SUMMARY | 2024-05-27 08:00 | XMS_ITS ---
Author Organization [employer] Address [address] [place] [address] Care Team Providers Care Mixer Wet Pour Name Role Phone Pam Wagoner Primary Care Provider REASON FOR VISIT bh fu Encounters Encounter Location Date Provider Diagnosis [facility] [address] [place] [address] 05/27/2024 Pam Wagoner Plan Of Treatment Next Appt Details Provider Name:Kelsey Jim samuels, 02/03/2025 11:45:00 AM, [address] [place], [address], Progress Notes * NICOLAS HARRISDOB:1960 ( 64 yo F)Acc No.[id number]:05/27/2024 Behavioral Health Patient: NICOLAS GALLAGHER Provider:?Pam WagonerDOB:1960???Age:63 Y ???Sex:FemaleDate:05/27/2024Phone:[phone]:[address] [place] [address] Subjective: * Chief Complaints: * B h fu Billing Information: * Procedure Codes: * Electronic signature of YVES Fisher on 01/26/2025 at 04:22 PM ESTSign off status: Pending * Appointment Provider: Isabel Wagoner Date: 0 05/27/2024 Generated for Printing/Faxing/eTransmitting on:?01/26/2025 04:22 PM EST
--- OUTSIDE RECORDS SUMMARY | 2024-06-22 05:45 | XMS_ITS ---
Author Organization [employer] es Address [address] [place] [address] Care Team Providers Care Fruit Trimmer Name Role Phone Pam aWgoner Primary Care Provider [phone] REASON FOR VISIT r/s 05/27 Encounters Encounter Location Date Provider Diagnosis [facility] [address] [place] [address] 06/22/2024 Pam Wagoner Plan Of Treatment Next Appt Details Provider Name:Kelsey Jim Rayalizzy arvind, 02/03/2025 11:45:00 AM, [address] [place], [address], Progress Notes * NICOLAS HARRISDOB:1960 ( 64 yo F)Acc No.[id number]:06/22/2024 Behavioral Health Patient: Jossie FRANCIS NICOLAS Provider:?Pam WagonerDOB:1960???Age:63 Y ???Sex:FemaleDate:06/22/2024Phone:[phone]:[address] [address], [place], [place] Subjective: * Chief Complaints: * R /s 05/27 Billing Information: * Procedure Codes: * Electronic signature of YVES Fisher on 01/26/2025 at 04:22 PM ESTSign off status: Pending * Appointment Provider: Isabel Wagoner Date: 0 06/22/2024 Generated for Printing/Faxing/eTransmitting on:?01/26/2025 04:22 PM EST
--- OUTSIDE RECORDS SUMMARY | 2024-12-06 08:30 | XMS_ITS ---
Author Organization [facility] [employer] es Address [address] [place] [address] Care Team Providers Care Flat Knitter Name Role Phone Pam Wagoner Primary Care Provider [phone] Kelsey Granado Unavailable [phone] REASON FOR VISIT Pt is a 64 year old female, BILL from [facility], 5 month f/u, Pt states she is [...] MG Tablet1 tablet Orally Once a dayActivepyRIDostigmine [place] 60 MG Tablet1 tablet Orally two tabletsActiveDoxepin [...] 12/06/2024 Encounters Encounter Location Date Provider Diagnosis [facility] [address] [place] [address] 12/06/2024 Kelsey Granado Mood disorder F39 ; [...] Details Provider Name:Kelsey samuels, 02/03/2025 11:45:00 AM, [facility] [place], [address], History and Physical Notes * Examination CategorySub-CategoryDetailNotesCategory [...] Notes * KIMBERLYNICOLASDOB:1960 ( 64 yo F)Acc No.[id number]:12/06/2024 Behavioral Health Patient: NICOLAS GALLAGHER :Samira NeunielsDOB:1960???Age:64 Y???Sex: FemaleDate:12/06/2024Phone:[phone]:[address] [facility], [address], [place], [id number]:Pam Wagoner Subjective: * Chief Complaints: * P t is a 64 year old female, BILL from [facility], 5 month f/uPt states she is depressed due to her other health concerns, mainly her heart problemsPt states she cannot fall asleep and cannot stay asleep, interested a a sleep medLM * HPI: ???Constitutional:?Pt is being seen today for follow up via in-office visit.??This is pt's first visit with this provider. She is a BILL from [facility].?Pt is tolerating meds well and taking medications [...] with food Orally Once a day pyRIDostigmine [place] 60 MG Tablet 1 tablet Orally two [...] food Orally Once a day Taking pyRIDostigmine [place] 60 MG Tablet 1 tablet Orally two [...] * Electronic signature of YVES Álvarez on 01/26/2025 at 04:21 PM EST Sign off status: Pending * Provider: Jim Granado Date: 0 12/06/2024 Generated for Printing/Faxing/eTransmitting on:?01/26/2025 04:21 PM EST
--- OUTSIDE RECORDS SUMMARY | 2024-12-23 08:00 | XMS_ITS ---
Author Organization [facility] [facility] Address [address] [place] [address] Care Team Providers Care Clothing Sales Assistant Name Role Phone Pam Wagoner Primary Care Provider [phone] REASON FOR VISIT 6 month f/u Encounters Encounter Location Date Provider Diagnosis [facility] [address] [place] [address] 12/23/2024 Pam Wagoner Plan Of Treatment Next Appt Details Provider Name:Kelsey Fernandez Elverlizzy arvind, 02/03/2025 11:45:00 AM, [address] [place], [address], Progress Notes * NICOLAS HARRISDOB:1960 ( 64 yo F)Acc No.[id number]:12/23/2024 Behavioral Health Patient: Jossie FRANCIS NICOLAS Provider:Efren WagonerDOB:1960???Age:64 Y ???Sex:FemaleDate:12/23/2024Phone:[phone]:[address] [facility] [address], [place], [place] Subjective: * Chief Complaints: * 6 month f/u * Electronic signature of YVES Fisher on 01/26/2025 at 04:21 PM ESTSign off status: Pending * Appointment Provider: Isabel Wagoner Date: Generated for Printing/Faxing/eTransmitting on:?01/26/2025 04:21 PM EST
--- OUTSIDE RECORDS SUMMARY | 2025-01-03 10:30 | XMS_ITS ---
Author Organization [facility] Address [address] [place] [address] Care Team Providers Care Manager Loan Name Role Phone Pam Wagoner Primary Care Provider Kelsey Granado Unavailable [phone] REASON FOR VISIT Pt is a 64 [...] MG Tablet1 tablet Orally twice a dayActivepyRIDostigmine [place] 60 MG Tablet1 tablet Orally two tabletsActiveRosuvastatin [...] 01/03/2025 Encounters Encounter Location Date Provider Diagnosis [address] [address] 01/03/2025 Kelsey Granado Mood disorder F39 ; [...] Cook arvind, 02/03/2025 11:45:00 AM, [address] [facility], [place], [address], Progress Notes * NICOLAS HARRISDOB:1960 ( 64 yo F)Acc No.[id number]:01/03/2025 Behavioral Health Patient: Jossie FRANCIS NICOLAS :?Kelsey GranadoDOB:1960???Age:64 Y???Sex: FemaleDate:01/03/2025Phone:[phone]:[address] [facility], [address], [id number]:Pam Wagoner Subjective: * Chief Complaints: * P [...] with food Orally Once a day pyRIDostigmine [place] 60 MG Tablet 1 tablet Orally two [...] food Orally Once a day Taking pyRIDostigmine [place] 60 MG Tablet 1 tablet Orally two [...] signature of YVES Álvarez on 01/26/2025 at 04:22 PM EST Sign off status: Pending * Provider: Jim Granado Date: 1 Generated for Printing/Faxing/eTransmitting on:?01/26/2025 04:22 PM EST
--- OUTSIDE RECORDS SUMMARY | 2025-01-11 20:01 | XMS_ITS | Continuity of Care Document ---
Author Organization [facility] Address [address] [place] [address] Phone Care Team Providers Care Automation Machine Operator Name Role Phone Merissa Mayfield MD Primary Care Provider Merissa Mayfield MD Attending Provider [phone] Demetris Santacruz Attending Provider Al Johnson Attending Provider Care Teams Patient Care Team Team Status: Active Member Role/Relationship Status Dates Merissa Mayfield MD Primary Care Provider Active Visit Care Team Team Status: Inactive Member Role/Relationship Status Dates Merissa Mayfield MD Primary Care Provider Active Start: December 21, 2024 End: December 21, 2024Christian Thomas ProviderActiveStart: December 21, 2024 End: December 21, 2024 Visit Care Team Team Status: Inactive Member Role/Relationship Status Dates Merissa Mayfield MD Primary Care Provider Active Start: December 22, 2024 End: December 22Christian Vázquez ProviderActiveStart: December 22, 2024 End: December 22, 2024 Visit Care Team Team Status: Active Member Role/Relationship Status Dates Merissa Mayfield MD Primary Care Provider Active Start: December 29, 2024 Al Gallegos ProviderActiveStart: December 29, 2024 Visit Care Team Team Status: Inactive Member Role/Relationship Status Dates Merissa Mayfield MD Primary Care Provider Active Start: January 11, 2025 End: January 11bdul Neeta , MDAttending ProviderActiveStart: January 11, 2025 End: January 11, 2025 Chief Complaint and Reason for Visit Chief Complaint Admit Date Wellness-HIGH RISK December 21, 2024 11:25am ckd 3 December 22, 2024 3: 21pm N18.30 I12.9 E11.22 I25.10 N25.81 Octobe r 2024 10:32am Reason for Visit Admit Date Abnormal TSH December 21, 2024 11:25am COPD (chronic obstructive pulmonary dise ase) December 21, 2024 11:25am Dyspnea on exertion December 21, 2024 11:25am Screening mammogram for breast cancer Se ptember 2024 11:25am Type 2 diabetes mellitus wit h diabetic chronic kidney disease December 21, 2024 11:25am Wellness examination December 21 11:25am CAD (coronary artery disease) December 3:21pm CKD (chronic kidney disease) stage 3, GF R 30-59 ml/min December 22, 2024 3:21pm Hyperlipidemia December 22, 2024 3: 21pm Hypertensive chronic kidney disease with stage 1 through stage 4 chronic ki December 22, 2024 3:21pm Secondary hyperparathyroidism December 3:21pm Type 2 diabetes mellitus wit h diabetic chronic kidney disease December 22, 2024 3:21pm Allergies, Adverse Reactions, Alerts Allergen Type Severity [...] Legal Sex Female (finding) [facility]1960 Family History Relationship Condition Age at Onset Recorded Date/T karie mother Malignant neoplasm of breast Unknown Cerebrovascular accident (CVA)UnknownfatherDiabetes mellitusUnknownfather DeceasedUnknownHypertensionUnknownChronic kidney diseaseUnknownfamily member DeceasedUnknownmotherMalignant neoplasmUnknownHistory of strokeUnknownDeceased UnknownHypertensionUnknown Problems Active Problems Problem Diagnosis/Recorded Date Onset Date Stat us Personal history of DVT (amaury p vein thrombosis) December 24, 2022 4:01am Unknown Active Arthritis, rheumatoid May 08, 2023 3:14pm Unkno wn Active Lower extremity edema August 19, 2023 11:18am Unknown Active Type 2 diabetes mellitus wit h diabetic chronic kidney disease December 22, 2024 3:41pm Unknown Active Screening mammogram for breast cancer December 21, 2024 11:52am Unknown Active Bilateral primary osteoarthr itis of knee May 08, 2023 4:38pm Unknown Active Secondary hyperparathyroidism December 22, 2024 3:42pm Unknown Active Dyspnea on exertion December 21, 2024 1:07pm Unknow n Active Urinary frequency August 19, 2023 11:18am Unknown Active Diabetes mellitus, type 2 December 24, 2022 3:11am Unk nown Active CKD (chronic kidney disease) stage 3, GFR 30-59 ml/min December 22, 2024 3:40pm Unknown Active CAD (coronary artery disease) January 29, 2024 1:44p m Unknown Active Anxiety May 08, 2023 4:41pm Unknown A ctive Hypertensive chronic kidney disease with stage 1 through stage 4 chronic kidney disease, or unspecified chronic kidney disease December 22, 2024 3:40pm Unknown Active Depression December 24, 2022 3:14am Unknown Act nilda Wellness examination January 03, 2025 1:11pm Unknown Active Hyperlipidemia December 23, 2024 5:48pm Unknown A ctive Hyponatremia December 24, 2022 4:03am Unknown Act nilda Elevated troponin December 24, 2022 4:00am Unknown Active Abnormal TSH August 19, 2023 11:18am Unknown Activ e COPD (chronic obstructive pu lmonary disease) December 21, 2024 1:07pm Unknown Active Right hip pain December 24, 2022 4:00am Unknown A ctive Hypertension May 08, 2023 3:14pm Unknown A ctive Fall December 24, 2022 4:00am Unknown Act nilda Medications Medication Status Dose Units Route Directions Qty Days Refills S tart Date Stop Date End Date Reason(s) Instructions Adherence Trazodone 50 mg tablet Discontinued 50 MG PO Gray y at bedtime 30 0March 2023 1:13pmMay 2023 10:46amBuspirone 10 mg tabletDiscontinued 10MGPOTwice kbtaz992Ajfuu 2023 10:41amMay 2023 10:45am Cholecalciferol (Vitamin D3) 1,250 mcg (50,000 unit) gczdpacZmskrtjiwmbo2805JLH POevery agfr27890Wvdhd 2023 12:00amJuly 2023 10:00amRivaroxaban (Xarelto) 20 mg xuiyknGsthotmrfjet66WNALPevtl100Mme 2023 9:06amJuly 2023 8:35amLevothyroxine 50 mcg wtgylgFmmbxavbkkgz84COGWIXhyyi219Kqx 2023 12:00amJune 2023 4:40pmSitagliptin Phosphate (Januvia) 100 mg tablet Discontinued0.ROUTE.BMQLEEP684Hjta 2023 9:11amSeptember 2023 9:46am TAKE 1 TABLET BY MOUTH DAILYLevothyroxine 50 mcg mxledfGcufqpyengdl06GCNBZOhilc 301June 2023 4:40pmAugust 2023 4:21pmCholecalciferol (Vitamin D3) 1,250 mcg (50,000 unit) capsuleDiscontinued0.ROUTE.ZGCIDBU14Qdbm 2023 10:00amMarch 2024 12:42pmTAKE 1 CAPSULE BY MOUTH ONCE A WEEKRivaroxaban (Xarelto) 20 mg tabletDiscontinued0.ROUTE.SBRTSXW253Xcbh 2023 8:35am December 21, 2024 11:54amTAKE 1 TABLET BY MOUTH ONCE DAILYSitagliptin Phosphate (Januvia) 100 mg tabletDiscontinued0.ROUTE.HVRTYRQ756Ymrwfzrbg 2023 9:46amMarch 2024 12:41pmTAKE 1 TABLET BY MOUTH DAILYLevothyroxine 50 mcg sqrauaPpvedxlrulsw16XTCVQZaqqf538Jhcfnwg 2024 5:40pmApril 2024 11:51amLevothyroxine 50 mcg cshianRqmqzhiuxkdw20EXYHGGizng282Ltidh 2024 11:51amJuly 2024 3:24pmAmiodarone 200 mg pvswcyGgmqjygqimoa697POGNNetrw September 03, 2024 12:00amSeptember 2024 11:31amClopidogrel (Plavix) 75 mg zxlzyxFcvmec82FYVZOzmvmAxtu 2024 12:00amUnknownLevothyroxine 50 mcg tablet Gsyzwpyvtfuu98IHYYJTtslh012Auvr 2024 3:24pmOctober 2024 3:31pm Levothyroxine 75 mcg lhfzhkTawqmy94FULDCWmhic432Vmdxnsr 2024 3:31pmUnknown Rivaroxaban (Xarelto) 20 mg cnjbbnQnedrhkfbmds82OIFrmpsie 2022 12:00amMay 2023 9:07amTramadol 50 mg euezbqWhggmwysrprk38EPUUQ3EKqsjsel 2022 12:00amFebruary 2023 4:10pmKetorolac 0.5 % mpzriQdpnwqyoywti3ATWZW EYE-RIGHTFour times dailyOctober 2022 12:00amFebruary 2023 4:08pm Pyridostigmine [place] 180 mg Tablet Extended RknuiszShhnvtjvdfej286WCYEGwnmk December 24, 2022 12:00amOctober 2022 8:13amSitagliptin Phosphate (Januvia) 100 mg fzevkxFedqlyahrvrw317HQICLtxziGhubnmb 2022 12:00amJune 2023 9:11amAcetaminophen 500 mg YnbyadBabqowwbognb559QCTMRxaod daily as needed for PainOctober 2022 12:00amMarch 2024 12:42pmPyridostigmine [place] 60 mg msaouoHefirv404KFYHXvit times dailyOctober 2022 12:00amUnknown Pyridostigmine [place] 60 mg QbbssbKpnkdlorkymu545HDGGDiaaw icexj10Bopbkce 3rd, 2023 12:00amFebruary 2023 4:09pmLamotrigine 150 mg bkfipqFcasyneyxzqv931AK PODailyFebruary 2018 1:00amApril 2023 1:44pmWarfarin 10 mg tablet Nnaiitniskmq0HEKBYnyjhPzhlparo 2018 1:00amOctober 2022 3:03am Metoprolol Succinate 100 mg tablet extended release 24 jdRwysrsgufpaj29MTCJVrdtm May 20, 2018 1:00amOctober 2023 10:11amVenlafaxine 150 mg capsule,extended release 21elHqaddo774RENJKgxiuVztgzgkw 2018 1:00amUnknown Lisinopril 5 mg zotansStqrykpwfesm5EUJFTxaupPueztrtw 2018 1:00amOctober 2022 3:02amHydroxychloroquine 200 mg xwjcjxVohiznichvrg927AIEJYcfeu daily May 20, 2018 1:00am[facility] 2024 12:42pmTemazepam (Restoril) 15 mg uhleeoxDtqksjxoghfi08JXNCGbckv at bedtimeFebruary 2023 1:00ambruary 2023 4:37pmHydrocodone-Acetaminophen 5-325 mg fqsumnNnwrwlpcgjfp6LVJKO Every 6 hours as needed for hexp5032Feoblhid 2023May 2023 10:46am Primary osteoarthritis of both knees Hyponatremia Pain of right hip Bilateral primary osteoarthritis of knee Hypo-osmolality and hyponatremia Pain in right hipBuspirone 10 mg vihhozElfkbvdxejcd09MXKMYbrdg jidya599Qejuzqhs 2023 1:00amMarch 2023 10:41amTrazodone 50 mg wgecdeUaeglpwnmrxk66PG PODaily at ychligx636Cbranguj 2023 1:00amMarch 2023 1:13pm Cariprazine (Vraylar) 3 mg kcwfzbhDwnernoemvdv4MQSZZtstdUse 2023 12:00am May 28, 2024 12:42pmQuetiapine (Seroquel) 25 mg ylgsvwKeibexjmeowe08FUKFJsmec at bedtimeSdy 2023 12:00amAugu2023 2:29pmTramadol 50 mg tablet Ftevnihpsolr59FCKVWgacj daily as neededMa 2023 12:00amOctmcdowell [facility] hospital 2023 10:20amFurosemide 40 mg erpcbzRebmxtcakbvb35EJAJVarkhLltqvlh 2023 12:00am December 22, 2024 3:31pmAtorvastatin 40 mg ejyzfwEnzoalykvihh94OSMFUuynmJmsmnvi 2023 12:00am[facility] 2024 12:42pmSpironolactone 25 mg tabletDiscontinued 25MGPODailyUniversity Of [facility] 2023 12:00amOctmcdowell arh hospital 2023 10:14amMetoprolol Tartrate 25 mg ucsqkdEhhygajpxxtr66.5MGPODailyUniversity Of [facility] 2023 12:00amMarc 2024 12:40pmAspirin 81 mg tablet,delayed release (DR/EC)Wgqafoqdokhf94JICE DailyUniversity Of [facility] 2023 12:00amSept2024 11:31amSpironolactone 25 mg uimcpzUjakpa29.5MGPODailyUniversity Of [facility] 2023 10:12amUnknownFluticasone Furoate- Vilanterol (Breo Ellipta) 100-25 mcg/dose blister with deviceDiscontinued INHALATIONOctmcdowell arh hospital 2023 12:00amMarc 2024 12:39pmMagnesium Oxide 400 mg magnesium tccnzdNgztasfypeku960YWPESfdec dailyOctmcdowell arh hospital 2023 12:00am December 21, 2024 11:30amMirtazapine 15 mg uwjynjFmfezsoqeenq33HXDJQkvuv January 22, 2024 12:00amMarc 2024 12:40pmFurosemide 40 mg asgnudMxnmzz16 MGPOTwice dailyOct2024 3:29pmUnknownMetoprolol Succinate 25 mg tablet extended release 24 xiLjzgfp35HXAYycstlTimhn 2024 1:00amUnknownRosuvastatin 20 mg foxexfXjhcgx68GUHNZdaqoWldbg 2024 1:00amUnknownDapagliflozin Propanediol (Farxiga) 10 mg lxvgpaCjtkgs89AZWPQnyxtIlzrk 2024 1:00amUnknown Sacubitril-Valsartan (Entresto) 24-26 mg tabletDiscontinued0.5TABPOTwice daily May 28, 2024 1:00amOctober 2024 3:38pmOndansetron Hcl 4 mg tablet Zlvhoxseecnx6BJMFXsogs 8 hours as needed for nausea and xbnpllvb865Mabou 2024 1:00amSeptember 2024 11:30amRivaroxaban (Xarelto) 20 mg tabletActive 20MGPODailyOctober 2024 3:29pmUnknownSacubitril-Valsartan (Entresto) 24-26 mg tabletActive0.5TABPODailyOctober 2024 3:38pmUnknownRivaroxaban (Xarelto) 20 mg tabletDiscontinued0.ROUTE.BGPZOJS681Tzycrnyyz 2024 11:54amOctober 2024 3:31pmTAKE 1 TABLET BY MOUTH ONCE DAILYLamotrigine 200 mg tabletActive 200MGPODailyApril 2023 12:00amUnknownMupirocin 2 % ointmentDiscontinued1 APPLICTOPICALTwice dailyAucrownpoint health care facility2023 12:00amMarc2024 12:42pm FreeTextSi application Externally Twice a day; Note: Source Status: Taking; Refills: 1; Qty: 22Gram; Provider: Chaparro Craven ESodium Chloride 1,000 mg tablet,pfycpuuCiihjiuipbdg3YMHLSLtiikHvlyvi 2023 12:00amMarc2024 12:41pmFreeTextSi tablet Orally daily; Note: Source Status: Start; Refills: 1; Qty: 90 Tablet; Provider: Chaparro Craven ELevothyroxine 50 mcg tablet Tyoqlaxkagph37QLPRSSasjo467Dqeybg 2023 4:21pmJanuary 2024 5:40pm Procedures Procedure Date Performed Status US renal BI January 11, 2025 10:33am compl eted Relevant Diagnostic Tests and/or Laboratory Data Laboratory Results Test Collection Date/Time Result Date/Time Result Interpretation Reference Range Result Comment Performing Site Free Thyroxine December 29, 2024 12:44pm December 29, 2024 12:44pm 1.24 ng/dL 0.76-1.46Thyroid Stimulating Hormone 3rd GenOctober 2024 12:44pmOctober 2024 12:44pm9.512 u[iU]/mLAbove high normal0.358-3.740B-Type Natriuretic PeptideOct2024 12:44pmOctober 2024 12:80ul080.0 pg/mL<=900.0Anion GapOct2024 12:44pmOctober 2024 12:44pm12.7BUN/Creatinine Ratio December 29, 2024 12:44pmOctober 2024 12:44pm15.6Blood Urea NitrogenOct2024 12:44pmOctober 2024 12:44pm25.0 mg/dLAbove high normal7.0-18.0 Calcium LevelOctober 2024 12:44pmOctober 2024 12:44pm9.2 mg/dL8.5-10.1 Chloride LevelOctober 2024 12:44pmOctober 2024 12:05jy061 mmol/L98-107 Carbon Dioxide LevelOct2024 12:44pmOctober 2024 12:44pm32.1 mmol/LAbove high .0-32.0CreatinineOct2024 12:44pmOctober 2024 12:44pm1.60 mg/dLAbove high normal0.55-1.02Estimated GFR () December 29, 2024 12:44pmOct2024 12:86lm32Uxhkq low normal>=60 mL/min/1.73m 2Estimated GFR (Non- AmericanOct2024 12:44pm December 29, 2024 12:03ll86Kronn low normal>=60 mL/min/1.73m 2Glucose Level December 29, 2024 12:44pmOct2024 12:59to577 mg/dLAbove high normal 74-106Potassium LevelOct2024 12:44pmOct2024 12:44pm3.8 mmol/L3.5-5.1Sodium LevelOct2024 12:44pmOctober 2024 12:18ik065 mmol/A058-033 Diagnostic Imaging Reports Author Prosper Mckeon [facility] HospitalReport Date/TimeOctober 2024 1:54pm [facility] [place] [address] [place], [place] [id number] Ultrasound Report Signed Patient: Ruma Carlton MR#: [id number] : 1960 Acct:[id number] Age/Sex: 64 / F ADM Date: 5 Loc: Room: Type: [facility] Attending Dr: Ramy Santacruz MD Ordering Provider: Ramy Santacruz MD Date of Service: 01/11/25 US/US renal BI: N18.30 - Chronic kidney disease, stage 3 unspecified Copies to: Ramy Santacruz MD~ Bilateral Renal Ultrasound HISTORY: Chronic kidney disease stage III. COMPARISON: None RIGHT kidney measures 9.5 cm. LEFT kidney measures 9.7 cm. Hydronephrosis: None RENAL STONE: No shadowing renal calculus is seen. RENAL LESIONS: No renal lesion identified. URINARY BLADDER: Bilateral ureteral jets identified. REPRODUCTIVE STRUCTURES Not assessed US/US renal BI IMPRESSION : No hydronephrosis. Impression dictated by: Prosper Mckeon M.D. 01/11/2025 1:54 PM Dictation Location: [place] [address] [facility] Transcribed By: PWS 01/11/25 1354 Dictated By: Prosper Mckeon DO 01/11/25 1353 Signed By: <Electronically signed by Prosper Mckeon DO in OV> 01/11/25 1354 Vital Signs Vital Reading Result Reference Range Collection Date/Time Height 62 [in_i] December 21, 2024 11:41tnAcblij536.12 kgSeptember 2024 11:13amHeart Rate48 /pjn72-472Ebemlfxbg 30th, 2025 11:13amRespiratory rate14 /vjj63-36 December 21, 2024 11:13amOxygen saturation by Pulse ipedokal23 %95-100 December 21, 2024 11:13amBP Znwgwooj69 mm[Hg]100-140September 2024 11:13amBP Byvuwuiry15 mm[Hg]60-100September 2024 11:13amBMI (Body Mass Index)43.6 kg/l6Khinffpyq 2024 11:73rmUwsdix16 [in_i]December 22, 2024 3:16stOvgkam982.52 kgOctober 2024 3:23pmBody Jhwjlrffcmh41.9 [degF] 97.6-99.0October 2024 3:23pmHeart Rate49 /cuz31-790Ckppwen 2024 3:23pm Respiratory rate18 /ycq11-24Wnadalx 2024 3:23pmOxygen saturation by Pulse tcrtosxv56 %95-100October 2024 3:23pmBP Bgcdhpet39 mm[Hg]100-140October 2024 3:23pmBP Gadmwujxc20 mm[Hg]60-100October 2024 3:23pmBMI (Body Mass Index)43.7 kg/k8Pisztoc 2024 3:23pm Advance Directives Advance Directive Response Recorded Date/ Time Advance Directives No April 07, 2018 1:57pm Insurance Providers Guarantor Ruma Carlton Address [address] [phone] Info.Home Phone: Coverage Status Update:2025 Payer Group Member ID Coverage Type Subscriber Relationship to Subscriber Effective Date Expiration Date EMILY Jama Id: [id number] K Skiles Id: [id number] [address] [id number] Home Phone: Email: [email or web address]/DEVON Id: [id number] K Skiles Id: [id number] [address] [address] Home Phone: Email: [email or web address] [employer] [id number] K Skiles Id: [id number] [address] [facility] [address] [facility] [address] Home Phone: Email: [email or web address] [facility] [place] Id: [id number] K Skiles Id: [id number] [address] [facility] [address] [facility] [address] Home Phone: Email: [email or web address] Encounter Location(s) Arrival/Admit Date Discharge/Departure Date Discharge/Departure Disposition Provider(s) Departed Physician/ Provider Office Visit -[facility] December 21, 2024 11:25am December 21, 2024 11:57am Discharged to home care or self care (routine discharge) Merissa Mayfield MD Departed Physician/ Provider Office Visit -[facility] December 22, 2024 3:21pm December 22, 2024 3:46pm Discharged to home care or self care (routine discharge) Ramy Santacruz MD Non-patient / Non-visit -[facility] O ctober 2024 12:44pm [facility] [place] 2024 10:32amOctober 2024 10:33amDischarged to home care or self care (routine discharge)Ramy Santacruz MD Recent Diagnosis Onset Date Admit Date Abnormal TSH Unknown December 21, 2024 11:25am COPD (chronic obstructive pulmonary disease) Unk nown December 21, 2024 11:25am Dyspnea on exertion Unknown December 212024 11:25am Screening mammogram for breast cancer Unknown December 21, 2024 11:25am Type 2 diabetes mellitus wit h diabetic chronic kidney disease Unknown December 21, 2024 11:25am Wellness examination Unknown November 242024 11:25am CAD (coronary artery disease) Unknown Oc tober 2024 3:21pm CKD (chronic kidney disease) stage 3, GFR 30-59 ml/min Unknown December 22, 2024 3:21pm Hyperlipidemia Unknown December 22 3:21pm Hypertensive chronic kidney disease with stage 1 through stage 4 chronic ki Unknown December 22, 2024 3 :21pm Secondary hyperparathyroidism Unknown Oc tober 2024 3:21pm Type 2 diabetes mellitus wit h diabetic chronic kidney disease Unknown December 22, 2024 3:21pm Assessments Diagnosis Onset Date Resolution Status Admit Date Abnormal TSH acuteSeptember 2024 11:25amCOPD (chronic obstructive pulmonary disease) acuteSeptember 2024 11:25amDyspnea on exertionacuteSeptember 2024 11:25amScreening mammogram for breast canceracuteSept2024 11:25am Type 2 diabetes mellitus with diabetic chronic kidney diseaseacuteSeptember 2024 11:25amWellness examinationacuteSeptember 2024 11:25amCAD (coronary artery disease)acuteOctober 2024 3:21pmCKD (chronic kidney disease) stage 3, GFR 30-59 ml/minacuteOctober 2024 3:21pmHyperlipidemia acuteOctober 2024 3:21pmHypertensive chronic kidney disease with stage 1 through stage 4 chronic kiacuteOctober 2024 3:21pmSecondary hyperparathyroidismacuteOctober 2024 3:21pmType 2 diabetes mellitus with diabetic chronic kidney diseaseacuteOctober 2024 3:21pm Plan of Treatment Author Ramy Santacruz [facility] HospitalAuthoredOctober 2024 5:52pmWill continue Plavix atorvastatin and metoprolol. Advised to continue to follow with cardiology for DM management. It was a pleasure to see Mrs. Carlton in our office for an evaluation and management of the CKD. As you know she has longstanding DM with HTN and likely has a CKD as a result of these comorbidities. Her renal function has declined likely due to the relative hypotension. I have ordered the kidney ultrasound to evaluate the renal anatomy. I have ordered a UA and UPCR to evaluate for hematuria and proteinuria. I discussed with her the importance of good DM and HTN control to slow down the progression of CKD. I have advised her to have avoid NSAIDs or any other ixvp-zem-obskqps nephrotoxic medication. Her blood pressure is relatively low. I have reduced the dose of the Entresto once daily. I have advised her to to monitor blood pressure at home and call office if it stays above 140 over 90 mmHg or below 100 over 60 mmHg. Will continue Farxiga and Entresto for renal protection. Advised to continue to follow with PCP for DM management. Her serum calcium is within normal limit. Will check PTH and vitamin D. Will continue statins. Advised her to continue to follow with PCP for monitoring of LFTs and lipid profile. Author Merissa Mayfield [facility] HospitalAuthoredOctober 2024 1:13pmrecheck labs. mammogram ordered Pt agrees to referral to Pulmonology. 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 as above. Personalized health advice was given to the beneficiary to health education of preventative counseling services or programs aimed at reducing identified risk factors and improving self-management or community-based lifestyle interventions to reduce health risks and promote self-management and wellness, including physical activity and nutrition. Take medication as prescribed, keep follow up appointments, get any testing that's been ordered done in a timely fashion. Do not smoke. Call if any questions or problems.For Diabetes: Patient is advised to work on healthy diet choices and appropriate servings, weight control, regular exercise as directed, and reduce fat intake. Check home blood sugars as directed. Check feet regularly to be sure no sores or numbness are developing. Call if low sugar reactions occur, and be aware that lower sugars may happen with increased exercise. Future Tests Future scheduled test information is unavailable Pending Tests Test Name Ordered Date Scheduled Date Renal Function Panel December 22, 2024 3:42pm 6 Weeks MM screening mammo BI w/CAD December 21, 2024 11:52am Future Visits Future appointment information is unavailable Future Procedures Procedure Name Ordered Date Scheduled [...] December 22, 2024 3:4 2pm 6 Weeks Thyroid Stim Hormone w/Rflx December 21, 2024 11:51am Future Medications Future medication information is unavailable Patient Instructions Patient instructions are unavailable
--- OUTSIDE RECORDS SUMMARY | 2025-01-17 05:50 | XMS_ITS | Encounter Summary ---
Author Organization [facility] Address [address] [place] [address] Care Team Providers Care Lav Crewman Name Role Phone Merissa Mayfield MD Primary Care Provider [phone] Reason for Visit * Auth/Cert (Routine)SpecialtyDiagnoses / ProceduresReferred By ContactReferred To Contact Diagnoses Palpitations Palpitations [R00.2] Procedures GA INSERTION SUBQ CARDIAC RHYTHM MONITOR W/PRGRMG Loop insertion Konrad Campoverde MD [address] [place] [address] Phone: tel: fax: [facility] [address] [place] [address] Phone: tel: fax: Referral IDStatusReasonStart DateExpiration DateVisits RequestedVisits [id number] Encounter Details DateTypeDepartmentCare Team (Latest Contact Info)Ywzfhinryyw44/27/2025 6:50 AM EDT - 01/17/2025 9:52 AM EDTHospital Encounter [facility] [address] [place] [address] Konrad Campoverde MD [address] [place] [address] Palpitations Discharge Disposition: Home or Self Care () Social History Tobacco UseTypesPacks/DayYears UsedDateSmoking Tobacco: LuxgvgNsjhituesb844 Smokeless Tobacco: NeverAlcohol UseStandard Drinks/WeekCommentsYes0 (1 standard drink = 0.6 oz pure alcohol)maybe every 2 or 3 months I [facility] UtilitiesAnswerDate RecordedIn the past 12 months [...] care, and heating?Somewhat hard05/11/2024PHQ-2AnswerDate RecordedPatient Health Questionnaire-2 Obvrj134UT Safety & Environment AnswerDate RecordedWithin the last [...] were you homeless or living in a half-way (including now)?No05/11/2024 Hunger Vital SignAnswerDate RecordedWithin the past 12 months, you worried that your food would run out before you got the money to buymore.Never true05/11/2024 Ran Out of Food in the Last YearNot on file05/11/2024CommentsNoSex and Gender InformationValueDate RecordedSex Assigned at GhmpyTbziqh65/19/2025 3:28 PM EDTLegal PaoNkioov79/29/2022 11:12 PM EDTGender OdjcvyrgMmravk83/19/2025 3:28 PM EDTSexual OrientationHeterosexual or Jpqumsak50/19/2025 3:28 PM EDT documented as of this encounter Last Filed Vital Signs Vital SignReadingTime TakenCommentsBlood Dhstfsrn999/6001/17/2025 9:35 AM EDT Yhnfg881901/17/2025 9:35 AM EDTTemperature--Respiratory Nfrs6222 9:35 AM EDTOxygen Weaywmgccz029%01/17/2025 9:35 AM EDTInhaled Oxygen Concentration-- Imnknn452 kg (241 lb)01/17/2025 7:08 AM SELMyjuzp919.9 cm (5' 1 )01/17/2025 7:08 AM EDTBody Mass Index45.5401/17/2025 7:08 AM EDTdocumented in this encounter Functional Status * QuestionAnswerDate of DccsrkzeweBhfwhvUU250/6001/17/2025 9:35 AM Emily Alas, OZGsjhe3289/27/2025 9:35 AM Emily Alas RN * Pain Assessment TimerQuestionAnswerDate of AssessmentAuthorRestart Pain Assessment PqyqoDkh26/27/2025 7:08 AM Lucrecia Jeronimo RN * Sepsis Model ScoresQuestionAnswerDate of AssessmentAuthorEarly Detection of Sepsis Score3.210 9:46 AM Christina Payne * Pain AssessmentQuestionAnswerDate of AssessmentAuthorPain AssessmentNo/denies pain01/17/2025 7:08 AM Lucrecia Jeronimo RN * QuestionAnswerDate of ZmpexyjyoyCucqkpJH376/6001/17/2025 9:35 AM Emily Alas, OLXtkoc5180/27/2025 9:35 AM Emily Alas SKAtem2456/27/2025 9:35 AM Emily Alas CQUhZ356062/27/2025 9:35 AM Emily Alas, RN * RespiratoryQuestionAnswerDate of AssessmentAuthorBilateral Breath Sounds Clear;Pdklqlnblp61/27/2025 6:56 AM Lucrecia Jeronimo RNRespiratory Effort Viocrbiyu23/27/2025 6:56 AM Lucrecia Jeronimo RNRespiratory Depth/Rhythm Ysviamh1501/17/2025 6:56 AM Lucrecia Jeronimo RNBreath SoundsBilateral breath ycztmn3001/17/2025 6:56 AM Lucrecia Jeronimo RN * NeurologicalQuestionAnswerDate of AssessmentAuthorLevel of ConsciousnessAlert 01/17/2025 6:56 AM Lucrecia Jeronimo RNOrientation LevelOriented X41 6:56 AM Lucrecia Jeronimo RNCognitionAppropriate yrizwnjes84/27/2025 6:56 AM Lucrecia Jeronimo RNSpeechClear1 6:56 AM Lucrecia Jeronimo RN * Pain AssessmentQuestionAnswerDate of AssessmentAuthorPain AssessmentNo/denies pain01/17/2025 7:08 AM Lucrecia Jeronimo RN * [place] Suicide Severity Rating ScaleQuestionAnswerDate of AssessmentAuthor1. Have [...] Lucrecia Benavidez RN * Modified AldreteQuestionAnswerDate of UmcnnamvnrKwqhlxXmdfdbwi539/27/2025 9:42 AM Marcella Ball RNRespiration 9:42 AM Marcella Ball RN Zkivdxvzrsa242/27/2025 9:42 AM Marcella Ball RNConsciousness 9:42 AM Marcella Ball RNOxygen Ykbtfpgafq062/27/2025 9:42 AM Marcella Ball RNModified Manisha Tcjbl3132/27/2025 9:42 AM Marcella Ball RN documented as of this encounter Mental Status * Forbes Agitation Sedation ScaleQuestionAnswerEntry DateAuthorRichmond Agitation Sedation Scale (RASS) 9:17 AM Emily Alas RN * Modified AldreteQuestionAnswerEntry RextNunjzfMljhtysz126/27/2025 9:42 AM Marcella Zaman RNRespiration 9:42 AM Marcella Ball RN Kmetxtuudnd312/27/2025 9:42 AM Marcella Ball RNConsciousness 9:42 AM Marcella Ball RNOxygen Vlythcugjr612/27/2025 9:42 AM Marcella Ball RNModified Manisha Iztdk0247/27/2025 9:42 AM Marcella Ball RN documented in this encounter Discharge Instructions * Attachments The following attachments cannot be sent through Care Everywhere. * Implantable Loop Recorder Placement Care After (Cypriot) documented in this encounter Medications at Time [...] from the original note were not included. [place] Electrophysiology Consult Note Reason for visit: Palpitations [...] Year: No Utilities: Not At Risk (05/11/2024) [facility] Utilities Threatened with loss of utilities: [...] Value Ventricular Rate 47 Atrial Rate 47 GA Interval 172 QRS DURATION 102 QT Interval 532 QTC CALCULATION(BAZETT) 470 P Holman 79 R-Holman 91 T Wave Holman 74 Impression Sinus bradycardia Possible Right ventricular [...] Value Ventricular Rate 105 Atrial Rate 120 GA Interval 200 QRS DURATION 90 QT Interval 368 QTC CALCULATION(BAZETT) 486 P Holman 70 R-Holman 99 T Wave Holman 83 Impression Sinus tachycardia Possible Right ventricular [...] vascular access -Conscious sedation Final Impressions: -Severe [place] 3 V CAD -Mildly elevated right sided [...] class III agents Silvestre Eduardo MD PGY-6 Storage And Backup Administrator [facility] Pager # [phone] Cosigned by Konrad Campoverde MD at 01/17/2025 [...] the sternum on the left using the [employer] tool. The loop recorder was then injected [...] MemberRelationshipSpecialtyStart DateEnd Date Merissa Mayfield MD [address] [facility] #A PCP - Thsijdd56/1/22documented as of this encounter
--- OUTSIDE RECORDS SUMMARY | 2025-01-17 07:30 | XMS_ITS | Encounter Summary ---
Author Organization [facility] Address [address] [place] [address] Care Team Providers Care Lithographic Printing Machinist Name Role Phone Merissa Mayfield MD Primary Care Provider [phone] Reason for Visit * Auth/Cert (Routine)SpecialtyDiagnoses / ProceduresReferred By ContactReferred To Contact Diagnoses Palpitations Palpitations [R00.2] Procedures OR INSERTION SUBQ CARDIAC RHYTHM MONITOR W/PRGRMG Loop insertion Konrad Campoverde MD [address] [place] [address] Phone: tel: fax: [facility] [address] [place] [address] Phone: tel: fax: Referral IDStatusReasonStart DateExpiration DateVisits RequestedVisits [id number] Encounter Details DateTypeDepartmentCare Team (Latest Contact Info)Egmdadsmbgx61/27/2025 8:30 AM EDT - 01/17/2025 8:50 AM EDTSurgery [facility] [address] [place] [address] Konrad Campoverde MD [address] [place] [address] Loop insertion [72750 (CPT??)] Social History Tobacco UseTypesPacks/DayYears UsedDateSmoking Tobacco: RwiyxeMcsctpyebo091 Smokeless Tobacco: NeverAlcohol UseStandard Drinks/WeekCommentsYes0 (1 standard drink = 0.6 oz pure alcohol)maybe every 2 or 3 months [facility] UtilitiesAnswerDate RecordedIn the past 12 months [...] care, and heating?Somewhat hard05/11/2024PHQ-2AnswerDate RecordedPatient Health Questionnaire-2 Gbceb095UT Safety & Environment AnswerDate RecordedWithin the last [...] were you homeless or living in a custodial (including now)?No05/11/2024 Hunger Vital SignAnswerDate RecordedWithin the past 12 months, you worried that your food would run out before you got the money to buymore.Never true05/11/2024 Ran Out of Food in the Last YearNot on file05/11/2024CommentsNoSex and Gender InformationValueDate RecordedSex Assigned at IhokdAvvvhc52/19/2025 3:28 PM EDTLegal IldKmkmxu40/29/2022 11:12 PM EDTGender TzhdicruGxavcu20/19/2025 3:28 PM EDTSexual OrientationHeterosexual or Jjmafplh31/19/2025 3:28 PM EDTdocumented as of this encounter Last Filed Vital Signs Vital SignReadingTime TakenCommentsBlood Oeiwetst633/ 7:08 AM EDT Bzrpt657501/17/2025 7:08 AM EDTTemperature--Respiratory Uwml1340 7:08 AM EDTOxygen Hlhstqcunq81%01/17/2025 7:08 AM EDTInhaled Oxygen Concentration-- Hzkgpr106 kg (241 lb)01/17/2025 7:08 AM SQMUzzsxo347.9 cm (5' 1 )01/17/2025 7:08 AM EDTBody Mass Index45.5401/17/2025 7:08 AM EDTdocumented in this encounter Functional Status * QuestionAnswerDate of OhtnvnntywYmwxgwQA930/6701/17/2025 7:08 AM Lucrecia Jeronimo RNPulse5301/17/2025 7:08 AM Lucrecia Jeronimo RN * Pain Assessment TimerQuestionAnswerDate of AssessmentAuthorRestart Pain Assessment UzprcOgr18/27/2025 7:08 AM Lucrecia Jeronimo RN * Sepsis Model ScoresQuestionAnswerDate of AssessmentAuthorEarly Detection of Sepsis Qfqhl139 8:46 AM Christina Payne * Pain AssessmentQuestionAnswerDate of AssessmentAuthorPain AssessmentNo/denies pain01/17/2025 7:08 AM Lucrecia Jeronimo RN * QuestionAnswerDate of KytxevmofuXscszbAG073/6701/17/2025 7:08 AM Lucrecia Jeronimo, HFDyzgt6975/27/2025 7:08 AM Lucrecia Jeronimo GEQdpa9752/27/2025 7:08 AM Lucrecia Jeronimo AKApC46099/27/2025 7:08 AM Lucrecia Jeronimo RN * RespiratoryQuestionAnswerDate of AssessmentAuthorBilateral Breath Sounds Clear;Ipwpvaajpu64/27/2025 6:56 AM Lucrecia Jeronimo RNRespiratory Effort Ciyqegzdl45/27/2025 6:56 AM Lucrecia Jeronimo RNRespiratory Depth/Rhythm Jhizjru9601/17/2025 6:56 AM Lucrecia Jeronimo RNBreath SoundsBilateral breath tfboeq3701/17/2025 6:56 AM Lucrecia Jeronimo RN * NeurologicalQuestionAnswerDate of AssessmentAuthorLevel of ConsciousnessAlert 01/17/2025 6:56 AM Lucrecia Jeronimo RNOrientation LevelOriented X41 6:56 AM Lucrecia Jeronimo RNCognitionAppropriate mpcfugooa41/27/2025 6:56 AM Lucrecia Jeronimo RNSpeechClear1 6:56 AM Lucrecia Jeronimo RN * Pain AssessmentQuestionAnswerDate of AssessmentAuthorPain AssessmentNo/denies pain01/17/2025 7:08 AM Lucrecia Jeronimo RN * [place] Suicide Severity Rating ScaleQuestionAnswerDate of AssessmentAuthor1. Have [...] Lucrecia Benavidez RN * Modified AldreteQuestionAnswerDate of XfrkavmrglYzlthcDkudtzpv947/27/2025 6:56 AM Lucrecia Jeronimo RNRespiration 6:56 AM Lucrecia Jeronimo RN Rekgzzuojcj424/27/2025 6:56 AM Lucrecia Jeronimo RNConsciousness 6:56 AM Lucrecia Jeronimo RNOxygen Wayyctjqmk348/27/2025 6:56 AM Lucrecia Jeronimo RNModified Manisha Kfmog1550/27/2025 6:56 AM Lucrecia Jeronimo RN documented as of this encounter Mental Status * Modified AldreteQuestionAnswerEntry LijpLvrclbUzzwssap798/27/2025 6:56 AM EDT Lucrecia Benavidez RNRespiration 6:56 AM Lucrecia Jeronimo RN Lorzxkhaoue155/27/2025 6:56 AM Lucrecia Jeronimo RNConsciousness 6:56 AM Lucrecia Jeronimo RNOxygen Pdxzlfsblf212/27/2025 6:56 AM Lucrecia Jernoimo RNModified Manisha Uuaie9837/27/2025 6:56 AM Lucrecia Jeronimo RN documented in this encounter Discharge Instructions * Attachments The following attachments cannot be sent through Care Everywhere. * Implantable Loop Recorder Placement Care After (Frisian) documented in this encounter Medications at Time [...] Year: No Utilities: Not At Risk (05/11/2024) [facility] Utilities Threatened with loss of utilities: [...] Value Ventricular Rate 47 Atrial Rate 47 OR Interval 172 QRS DURATION 102 QT Interval 532 QTC CALCULATION(BAZETT) 470 P [place] 79 R-[place] 91 T Wave [place] 74 Impression Sinus bradycardia Possible Right ventricular [...] Value Ventricular Rate 105 Atrial Rate 120 OR Interval 200 QRS DURATION 90 QT Interval 368 QTC CALCULATION(BAZETT) 486 P [place] 70 R-[place] 99 T Wave [place] 83 Impression Sinus tachycardia Possible Right ventricular [...] vascular access -Conscious sedation Final Impressions: -Severe chippewa-cree 3 V CAD -Mildly elevated right sided [...] class III agents Silvestre Eduardo MD PGY-[address] [facility] Pager # [phone] Cosigned by Konrad Campoverde MD at 01/17/2025 [...] the sternum on the left using the MOBi-LEARN tool. The loop recorder was then injected [...] MemberRelationshipSpecialtyStart DateEnd Date Merissa Mayfield MD [address] [facility] #A PCP - Dgwlebk04/1/22documented as of this encounter
--- OUTSIDE RECORDS SUMMARY | 2025-01-26 16:21 | XMS_ITS | Encounter Summary ---
Author Organization [facility] Address [address] [place] [address] Care Team Providers Care Director Of Housing Name Role Phone Merissa Mayfield MD Primary Care Provider [phone] Encounter Details DateTypeDepartmentCare Team (Latest Contact Info)Dcsjpgqbuke53/27/2025Travel Social History Tobacco UseTypesPacks/DayYears UsedDateSmoking Tobacco: BlghhpEblwchnhsb850 Smokeless Tobacco: NeverAlcohol UseStandard Drinks/WeekCommentsYes0 (1 standard drink = 0.6 oz pure alcohol)maybe every 2 or 3 months I have one while outAH UtilitiesAnswerDate RecordedIn the past 12 months has [...] care, and heating?Somewhat hard05/11/2024PHQ-2AnswerDate RecordedPatient Health Questionnaire-2 Mdjrj781UT Safety & Environment AnswerDate RecordedWithin the last year, have you been afraid of your partner or ex-partner?No11/11/2022Within the last year, have you been humiliated or emotionally abused in other ways by your partner or ex-partner?No11/11/2022 Within the last year, have you been kicked, hit, slapped, or otherwise physically hurt by your partner or ex-partner?No11/11/2022Within the last year, have you been raped [...] were you homeless or living in a detention (including now)?No05/11/2024 Hunger Vital SignAnswerDate RecordedWithin the past 12 months, you worried that your food would run out before you got the money to buymore.Never true05/11/2024 Ran Out of Food in the Last YearNot on file05/11/2024CommentsNoSex and Gender InformationValueDate RecordedSex Assigned at PdspaBhjjza69/19/2025 3:28 PM EDTLegal BjnLuhkea77/29/2022 11:12 PM EDTGender MwlhkooqXqtsor97/19/2025 3:28 PM EDTSexual OrientationHeterosexual or Trysppai39/19/2025 3:28 PM EDTdocumented as of this encounter Functional Status * QuestionAnswerDate of KodowuwjglNjxrskEX103/6001/17/2025 9:35 AM Emily Alas, KSIaubp0540/27/2025 9:35 AM Emily Alas RN * Pain Assessment TimerQuestionAnswerDate of AssessmentAuthorRestart Pain Assessment MekqtXdy46/27/2025 7:08 AM Lucrecia Jeronimo RN * Sepsis Model ScoresQuestionAnswerDate of AssessmentAuthorEarly Detection of Sepsis Score3. 9:46 AM Christina Payne * Pain AssessmentQuestionAnswerDate of AssessmentAuthorPain AssessmentNo/denies pain01/17/2025 7:08 AM Lucrecia Jeronimo RN * QuestionAnswerDate of PhzxoatkssUqssehFI636/6001/17/2025 9:35 AM Emily Alas, SZVuigb0727/27/2025 9:35 AM Emily Alas ADIjwn5304/27/2025 9:35 AM Emily Alas ZGKzX711663/27/2025 9:35 AM Emily Alas RN * RespiratoryQuestionAnswerDate of AssessmentAuthorBilateral Breath Sounds Clear;Olohbpfhbj06/27/2025 6:56 AM Lucrecia Jeronimo RNRespiratory Effort Wjgvqkkpv03/27/2025 6:56 AM Lucrecia Jeronimo RNRespiratory Depth/Rhythm Englnao2301/17/2025 6:56 AM Lucrecia Jeronimo RNBreath SoundsBilateral breath egbjdt4301/17/2025 6:56 AM Lucrecia Jeronimo RN * NeurologicalQuestionAnswerDate of AssessmentAuthorLevel of ConsciousnessAlert 01/17/2025 6:56 AM Lucrecia Jeronimo RNOrientation LevelOriented X41 6:56 AM Lucrecia Jeronimo RNCognitionAppropriate nnbqbfcpo80/27/2025 6:56 AM Lucrecia Jeronimo RNSpeechClear1 6:56 AM Lucrecia Jeronimo RN * Pain AssessmentQuestionAnswerDate of AssessmentAuthorPain AssessmentNo/denies pain01/17/2025 7:08 AM Lucrecia Jeronimo RN * Supply Suicide Severity Rating ScaleQuestionAnswerDate of AssessmentAuthor1. Have [...] of SuicideAnswerDate of AssessmentAuthorNo Risk01/17/2025 6:56 AM Lucrecia Pitts RN * Modified AldreteQuestionAnswerDate of LwjtumvblvIadesqSmpcueah890/27/2025 9:42 AM Marcella Ball RNRespiration 9:42 AM Marcella Ball RN Rzgsjmxiwvb506/27/2025 9:42 AM Marcella Ball CHSvryhicpsfhxd795/27/2025 9:42 AM Marcella Ball RNOxygen Uysxhpbfnt455/27/2025 9:42 AM Marcella Ball RNModified Manisha Jxfjn4814/27/2025 9:42 AM Marcella Ball RN documented as of this encounter Mental Status * [place] Agitation Sedation ScaleQuestionAnswerEntry DateAutrRichmond Agitation Sedation Scale (RASS) 9:17 AM Emily Alas RN * Modified AldreteQuestionAnswerEntry LosxQpronyPdxoidmy088/27/2025 9:42 AM Marcella Zaman RNRespiration 9:42 AM Marcella Ball RN Tmgnfbxqubi689/27/2025 9:42 AM Marcella Ball PUAmvghrticckrg152/27/2025 9:42 AM Marcella Ball, RNOxygen Luihoalebe366/27/2025 9:42 AM Marcella Ball RNModified Manisha Cqkdw1568/27/2025 9:42 AM Marcella Ball, JULIANA documented in this encounter Plan of Treatment Not on file documented as of this encounter Visit Diagnoses Not on filedocumented in this encounter Care Teams Team MemberRelationshipSpecialtyStart DateEnd Date Merissa Mayfield MD [facility] #A PCP - Xbzwllb36/1/22documented as of this encounter
--- OUTSIDE RECORDS SUMMARY | 2025-01-26 16:21 | XMS_ITS | Patient Health Record ---
Author Organization [facility] Address [address] [place] [address] Care Team Providers Care Ore Crusher Name Role Phone Pam Wagoner Primary Care Provider Kelsey Granado Unavailable [phone] Allergies Allergen (clinical drug ingredient) Drug/Non Drug Allergy documented on EMR Reaction Allergy Type Onset Date Status Substance with sulfonamide s tructure and antibacterial mechanism of action (substance) Sulfa Antibiotics Unknown Drug Allergy Active Reason For Referral No Information Medications Medication SIG (Take, Route, Frequency, Duration) Notes Start Date End Date Status lamoTRIgine 200 MG Tablet 1 tablet at be dtime Orally Once a day; Duration: 90 days ActiveFurosemide 40 MG Tablet1 tablet Orally twice a dayActivepyRIDostigmine Ralph 60 MG Tablet1 tablet Orally two tabletsActiveDoxepin HCl 6 MG Tablet1 tablet at bedtime Orally Once a day; Duration: 30 days5ActiveMetoprolol Succinate ER 25 MG Tablet Extended Release 24 Hour1/2 tablet Orally twice a day ActiveHydroxychloroquine Sulfate 200 MG Tablet2 tablets Orally twice a day Not-Taking/PRNVenlafaxine HCl ER 150 MG Capsule Extended Release 24 Hour2 tablets with food Orally Once a day; Duration: 90 daysActiveSpironolactone 25 MG Tablet1/2 tablet Orally once a dayActiveARIPiprazole 5 MG Tablet1 tablet Orally Once a day; Duration: 30 day(s)5ActiveEntresto 24-26 MG Tablet1/2 tablet once a day Oral; Duration: 90 daysActiveClopidogrel Bisulfate 75 MG Tablet1 tablet Orally Once a dayActiveRosuvastatin Calcium 20 MG Tablet1 tablet Orally Once a dayActiveFarxiga 10 MG Tablet1 tablet Orally Once a dayActive Xarelto 20 MG Tablet1 tablet with food Orally Once a dayActiveLevothyroxine Sodium 50 MCG Tablet1 tablet in the morning on an empty stomach Orally Once a dayActiveAtorvastatin Calcium 40 MG Tablet1 tablet Orally Once a day Not-Taking/PRNMagnesium Oxide 400 MG Tablet1 tablet as needed Orally Once a day Not-Taking/PRNLasix 40 MG Tablet1 tablet Orally Once a dayNot-Taking/PRNBaby AspirinNot-Taking/PRNJanuvia 100 MG Tablet1 tablet Orally Once a day Not-Taking/PRNXarelto 20 MG Tablet1 tablet with food Orally Once a day Not-Taking/PRN Social History Tobacco Use: Social History Observation Description Date Details (start date - stop date) Current Smoker NA - NA Social History GeneralSocial InfoQuestionAnswerNotesDepression Screening (PHQ-9):Little interest or pleasure in doing thingsMore than half the daysFeeling down, depressed, or hopelessSeveral daysTrouble falling or staying asleep, or sleeping too muchNearly every dayFeeling tired or having little energyNearly every day Poor appetite or overeatingNearly every dayFeeling bad about yourself-or that you are a failure or have let yourself or your family downSeveral daysTrouble concentrating on things, such as reading the newspaper or watching television Several daysMoving or speaking so slowly that other people could have noticed. Or the opposite being so fidgetyor restless that you have been moving around a lot more than usualNot at allThoughts that you would be better off , or of hurting yourself in some wayNot at allTotal Rtbub33RragspioxnshjDlhzfhlj DepressionDrug/Alcohol:Social InfoQuestionAnswerNotesAUDIT-C (Standard)Did you have a drink containing alcohol in the past year?Yes? How often did you have six or more drinks on one occasion in the past year?Less than monthly (1 point)? How many drinks did you have on a typical day when you were drinking in the past year?1 or 2 drinks (0 point)? How often did you have a drink containing alcohol in the past year?Monthly or less (1 point)Hafmfo2RvkdzwuqbitoqoIuxbeghgOGOW-67 (2020 Edition)1. Have you used drugs other than those required for medical reasons?No2. Do you abuse more than one drug at a time?No3. Are you always able to stop using drugs when you want to?Yes4. Have you had blackouts or flashbacks as a result of drug use?No5. Do you ever feel bad or guilty about your drug use?No6. Does your spouse (or parents) ever complain about your involvement with drugs?No7. Have you neglected your family because of your use of drugs?No8. Have you engaged in illegal activities in order to obtain drugs?No 9. Have you ever experienced withdrawal symptoms (felt sick) when you stopped taking drugs?No10. Have you had medical problems as a result of your drug use (e.g., memory loss, hepatitis, convulsions, bleeding etc.)?NoResults:0 Interpretation of Score:No problems reportedTobacco Use:Social InfoQuestion AnswerNotesTobacco Control (Standard)Tobacco use:Current smoker? How often do you smoke cigarettes?Every day? How many cigarettes a day do you smoke?21-30 Problems Problem Type SNOMED Code ICD Code Onset Dates Problem Status W/U Status Risk Notes Problem Anxiety (25794576) Anxiety (F41.9) ActiveconfirmedProblemBody mass index 40+ - severely obese (001755932)BMI 45.0- 49.9, adult (Z68.42)ActiveconfirmedProblemMood disorder (42329787)Mood disorder (F39)ActiveconfirmedProblemBody mass index 40+ - morbidly obese (207778186)BMI 40.0-44.9, adult (Z68.41)ActiveconfirmedProblemInsomnia (161785439)Insomnia disorder with non-sleep disorder mental comorbidity (G47.00)Activeconfirmed Vital Signs Heart Rate 78 /min 01/03/2025 Eonbuhwt55 %01/03/2025lood pressure dywmnyxeb20 mm Hg01/03/20259388Xhgxnw70.5 in 01/03/2025lood pressure mlnunljy163 mm Hg01/03/20257100Einbcx645.0 lbs10MI 44.79 kg/m201/03/2025 Encounters Encounter Location Date Provider Diagnosis [facility] [address] [place] [address] 02/10/2024 Pam Wagoner Mood disorder [address] [place] [address] 03/30/2024 Pam Wagoner [facility] [place] [address]/ Pam CoxMood disorder [address] [place] [address]/hristy [facility] [place] [address]/5Christy CoxMood disorder [address] [place] [address]/5Christy CoxMood disorder [address] [place] [address]/5Christy CoxMood disorder [address] [place] [address]/5Christy CoxMood disorder [address] [place] [address]/5Christy Wagoner Mood disorder [address] [place] [address]/Leslie NeubergerMood disorder 9[facility] [facility] [place] [place] [address]/4Christy CoxMood disorder F39 ; 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 and Anxiety F41.9[facility] [facility] [place] [address]/5Christy CoxMood disorder F39 ; Anxiety F41.9 and 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[facility] [place] [address]/Leslie NeubergerMood disorder F39 ; Anxiety F41.9 and 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[facility] [place] [address]/Leslie NeubergerMood disorder F39 ; Anxiety F41.9 and 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 Assessments Encounter Date Diagnosis (ICD Code) Assessment Notes Treatment Notes Treatment Clinical Notes Section Notes 02/26/2024 Mood disorder (ICD-10 - F39) Recommended treatment for Bipolar disorder includes FDA approved and OFF label medications: second generation antipsychotics and mood stabilizers. Discussed life threatening side effect of Lamotrigine. Pt is to monitor for new skin rashes or sensation of a sunburn or itchiness or redness, mouth sores or sores in mucus membranes, and call provider immediately and or go to ER, and stop the medication. Second generation antipsychotic medications can cause headache, drowsiness, agitation, dizziness, nausea, or extrapyramidal symptoms such as tremors, muscle spasms, slowness of movement or jerkingof muscles. Stable The patient verbalizes understanding with all questions answered thoroughly and is in agreement with treatment plan. Continue current treatment. Call for problems . GOALS: . Maintain medication regimen _Improve mood stability _Improve anxiety control _Improve social and interpersonal functioning Patient/Guardian will call sooner if symptoms worsen. Patient understands to go to ER if needed if symptoms become severe. Crisis Intervention plan was discussed and agreed upon. Patient/Guardian will call 911 in case of emergency. Emergency contact information was provided to the patient/guardian. follow up 3 months Pharmacological management: . Alternative medication plans were discussed with the patient/guardian. All relevant side effects and potential adverse effects were discussed with the patient/guardian. Standard cautions and potential benefits were discussed. Patient/Guardian consented to the start/continuation of the treatment. 06/23/2024Mood disorder (ICD-10 - F39) Recommended treatment for mood disorder includes FDA approved and OFF label medications: second generation antipsychotics and mood stabilizers. Discussed life threatening side effect of Lamotrigine. Pt is to monitor for new skin rashes or sensation of a sunburn or itchiness or redness, mouth sores or sores in mucus membranes, and call provider immediately and or go to ER, and stop the medication.Second generation antipsychotic medications can cause headache, drowsiness, agitation, dizziness, nausea, or extrapyramidal symptoms such as tremors, muscle spasms, slowness of movement or jerking ofmuscles. Stable The patient verbalizes understanding with all questions answered thoroughly and is in agreement with treatment plan. Continue current treatment. Stop Vraylar. . Call for problems . GOALS: . Maintain medication regimen _Improve mood stability _Improve anxiety control _Improve social and interpersonal functioning Patient/Guardian will call sooner if symptoms worsen. Patient understands to go to ER if needed if symptoms become severe. Crisis Intervention plan was discussed and agreed upon. Patient/Guardian will call 911 in case of emergency. Emergency contact information was provided to the patient/guardian. follow up 6 months Pharmacological management: . Alternative medication plans were discussed with the patient/guardian. All relevant side effects and potential adverse effects were discussed with the patient/guardian. Standard cautions and potential benefits were discussed. Patient/Guardian consented to the start/continuation of the treatment. 02/10/2024Mood disorder (ICD-10 - F39)09/07/2024Mood disorder (ICD-10 - F39) 11/01/2024Mood disorder (ICD-10 - F39)12/06/2024Mood disorder (ICD-10 - F39) 02/26/2024Insomnia disorder with non-sleep disorder mental comorbidity (ICD-10 - G47.00)04/22/2024Mood disorder (ICD-10 - F39)04/23/2024Mood disorder (ICD-10 - F39)04/23/2024Mood disorder (ICD-10 - F39)06/03/2024Mood disorder (ICD-10 - F39) 5Anxiety (ICD-10 - F41.9)12/06/2024Mood disorder (ICD-10 - F39) 01/03/2025Mood disorder (ICD-10 - F39)01/03/2025nxiety (ICD-10 - F41.9) 12/06/2024nxiety (ICD-10 - F41.9)02/26/2024nxiety (ICD-10 - F41.9)06/23/2024 Insomnia disorder with non-sleep disorder mental comorbidity (ICD-10 - G47.00) 01/03/2025Insomnia disorder with non-sleep disorder mental comorbidity (ICD-10 - G47.00)12/06/2024Insomnia disorder with non-sleep disorder mental comorbidity (ICD-10 - G47.00) Plan Of Treatment Next Appt Details Provider Name:Kelsey Cook arvind, 02/03/2025 11:45:00 AM, [address] [place], [address], Insurance Providers Payer Name Payer Address Payer Phone Subscriber Number Group Number Insured Name Patient Relationship to Insured Coverage Start Date Coverage End Date ANTHEM Primary [address] [place] [address] [id number] KIMBERLY, NICOLAS Self - patient is the insured 4 4 [employer] [place] Medicaid [address] [place] [address] [id number] KIMBERLY, NOLASelf - patient is the lhtumub97/01/2025B [facility] [place] [id number], NOLASelf - patient is the [id number] 2024 Medical (General) History Medical History History ICD Code diabetes mallitus rheumatoid arthritisdepressionSVTPOTSSurgical History Surgery Date(Month/Year) hysterectomy, total with bilateral salpi grant-oopherectomy (BSO) 1994 back surgery 2009 hand surgery 03/14 gallbladder 1979 Hospitalization History Reason Date(Month/Year) see surgical
--- OUTSIDE RECORDS SUMMARY | 2025-01-26 16:21 | XMS_ITS | Clinical Summary ---
Author Organization [facility] Address [address] [place] [address] Phone Care Team Providers Care Technician Support Association Name Role Phone Unavailable Primary Care Provider Unavailabl e Social History Tobacco UseTypesPacks/DayYears UsedDateSmoking Tobacco: Never Assessed CommentsUnknownSex and Gender InformationValueDate RecordedSex Assigned at Not on fileLegal YxoScdbvz11/26/2022 10:31 AM ESTGender IdentityNot on file Sexual OrientationNot on file Plan of Treatment Health MaintenanceDue DateLast DoneCommentsCT Nlpsotmjasrf46/15/1962Colonoscopy 2Colorectal Cancer Znuarbbey12/15/1962FIT-DNA (Cologuard)1961FIT 1961HIV Lfcljbpjy70/15/1962Lipid Panel1961 3018Hstsjetqmsgsq89/15/1962 Yearly Adult Coxutcns66/15/1962MMR Vaccines (1 of 1 - Standard series)1962 Hepatitis C Aelmrzczv18/15/1980Cervical Cancer Xtiopnzke52/15/1983HPV/Cotest 1982Pap Smear1982DTaP/Tdap/Td Vaccines (1 - Tdap)11/06/1983Mammogram 2001Pneumococcal Vaccine (1 of 1 - PCV)11/06/2011Zoster Vaccines (1 of 2) 11/06/2011Influenza Vaccine (#1)5COVID-19 Vaccine (1 - season) 2024RSV High Risk: (Elderly (60+) or Population) (1 - 1-dose 75+ series)2036HIB VaccinesAged OutNo longer eligible based on patient's age to complete this topicHPV VaccinesAged OutNo longer eligible based on patient's age to complete this topicHepatitis A VaccinesAged OutNo longer eligible based on patient's age to complete this topicHepatitis B VaccinesAged OutNo longer eligible based on patient's age to complete this topicIPV VaccinesAged OutNo longer eligible based on patient's age to complete this topicMeningococcal VaccineAged OutNo longer eligible based on patient's age to complete this topic Rotavirus VaccinesAged OutNo longer eligible based on patient's age to complete this topic
--- OUTSIDE RECORDS SUMMARY | 2025-01-26 16:22 | XMS_ITS | Clinical Summary ---
Author Organization [facility] Address [address] [place] [address] Care Team Providers Care Senior Scrum Master Name Role Phone Merissa Mayfield MD Primary Care Provider [phone] Allergies Active AllergyReactionsCriticalityNoted MrxjAsdhkuuuSlfaypj63/21/2010 Other Reaction(s): other, Other: See Comments, Unknown severe headaches Cinjtwhyzkqhhv61/21/2010 Other Reaction(s): Intolerance, involuntary movements, other Sulfa AntibioticsItching,LtrsPqi9403/11/2014 Other Reaction(s): other Medications MedicationSigDispense QuantityRefillsLast FilledStart DateEnd DateStatus busPIRone (Buspar) 10 MG tablet Take 10 mg by mouth in the morning and 10 mg before bedtime.05/08/2023ctive HYDROcodone-acetaminophen ([place]) 5-325 MG tablet TAKE 1 TABLET BY MOUTH EVERY 6 HOURS NEEDED FOR PAIN FOR 7 DAYS05/08/2023 Active hydroxychloroquine (Plaquenil) 200 MG tablet Take 1 tablet by mouth in the morning and 1 tablet before bedtime.Active lamoTRIgine (LaMICtal) 200 MG tablet 04/17/2023ctive metoprolol succinate XL (Toprol-XL) 50 MG 24 hr tablet Take 1 tablet by mouth Daily02/07/2023ctive Xarelto 20 MG tablet Take 1 tablet every day by oral route for 90 days.Active Januvia 100 MG tablet Take 1 tablet every day by oral route for 90 days.Active traZODone (Desyrel) 50 MG tablet Take 50 mg by mouth at twjvhzd6605/08/2023ctive venlafaxine XR (Effexor XR) 150 MG 24 hr capsule Take 2 capsules by mouth DailyActive pyridostigmine (Mestinon) 60 MG tablet Take by mouthActive famotidine (Pepcid) 20 MG tablet Take by mouthActive Active Problems No known active problems Family History Medical HistoryRelationNameCommentsDiabetesFatherCancerMotherRelationNameStatus CommentsFatherDeceasedMotherDeceased Social History Tobacco UseTypesPacks/DayYears UsedDateSmoking Tobacco: Every DayCigarettes Alcohol UseStandard Drinks/WeekCommentsNever0 (1 standard drink = 0.6 oz pure alcohol)CommentsUnknownSex and Gender InformationValueDate RecordedSex Assigned at BirthNot on fileLegal GacPkzaja26/01/2023 8:35 PM EDTGender Identity Not on fileSexual OrientationNot on file Last Filed Vital Signs Vital SignReadingTime TakenCommentsBlood Awwtffkl756/70007/21/2019 12:00 PM EDT Pulse--Uuiigotvhaz64.5 ??C (97.7 ??F)06/04/2023 10:45 AM EDTRespiratory Rate-- Oxygen Saturation--Inhaled Oxygen Concentration--Bbpnlv776 kg (223 lb)06/04/2023 10:45 AM LCSJgdtwk408 cm (5' 3 )06/04/2023 10:45 AM EDTBody Mass Index39.5 06/04/2023 10:45 AM EDT Plan of Treatment Not on file Insurance Care Teams Team MemberRelationshipSpecialtyStart DateEnd Date Merissa Mayfield MD [facility]05/12/23
--- OUTSIDE RECORDS SUMMARY | 2025-01-26 16:22 | XMS_ITS | Clinical Summary ---
Author Organization [facility] Address [address] [place] [address] Care Team Providers Care Cut In Worker Name Role Phone Merissa Mayfield MD Primary Care Provider [phone] Allergies Active AllergyReactionsCriticalityNoted EggoLkofbubwUvlswubGzwxz67/19/2014 ZjuqcgrkxxbgavAyuoysk94/21/2010 Other Reaction(s): Intolerance, involuntary movements, other Metoclopramide XuwShmjw28/19/2014Sulfa (Sulfonamide Antibiotics)Other03/11/2014 Medications MedicationSigDispense QuantityRefillsLast FilledStart DateEnd DateStatus lamoTRIgine (LaMICtal) 200 mg tablet Take 1 tablet by mouth in the evening.Active rivaroxaban (Xarelto) 20 mg tablet Take 20 mg by mouth once daily as directed.Active venlafaxine XR (Effoxor-XR) 150 mg 24 hr capsule Take 2 capsules by mouth in the morning.Active pyridostigmine (Mestinon) 60 mg tablet Indications:POTS (postural orthostatic tachycardia syndrome)Take 2 tablets (120 mg) by mouth in the morning, at noon, in the evening, and at bedtime. 720 tablet ctive levothyroxine (Synthroid, Levoxyl) 50 mcg tablet Take 50 mcg by mouth before breakfast.Active furosemide (Lasix) 40 mg tablet Indications:LOPEZ (dyspnea on exertion)Take 1 tablet (40 mg) by mouth before breakfast. 90 tablet 5Active Additional Information Patient taking differently:40 mg oral2 times daily, Reported on 01/17/2025 magnesium oxide (Mag-Ox) 400 mg tablet Take 400 mg by mouth two times daily.Active dapagliflozin propanediol (Farxiga) 10 mg Indications:heart failure,type 2 diabetes mellitusTake 1 tablet (10 mg) by mouth once daily as directed. 90 tablet /ctive metoprolol succinate XL (Toprol-XL) 25 mg 24 hr tablet Indications:Acute on chronic congestive heart failure, unspecified heart failure type (CMS/HCC)Take 1 tablet (25 mg) by mouth once daily as directed. Do not crush or chew. 90 tablet /ctive sacubitril-valsartan (Entresto) 24-26 mg tablet Indications:Acute on chronic congestive heart failure, unspecified heart failure type (CMS/HCC)Take 0.5 tablets by mouth two times daily. 90 tablet ctive Additional Information Patient taking differently:0.5 tablet oralDaily, Reported on 01/17/2025 rosuvastatin (Crestor) 20 mg tablet Indications:Mixed hyperlipidemiaTake 1 tablet (20 mg) by mouth in the morning. 30 tablet 110ctive spironolactone (Aldactone) 25 mg tablet Indications:LOPEZ (dyspnea on exertion)Take 1 tablet (25 mg) by mouth in the morning. 90 tablet ctive Additional Information Patient taking differently: 12.5 mgoral Daily, Reported on 01/17/2025 ondansetron (Zofran) 4 mg tablet Take 8 mg by mouth every 8 (eight) hours if needed.5Active clopidogrel (Plavix) 75 mg tablet Indications:Coronary artery disease due to lipid rich plaqueTake 1 tablet (75 mg) by mouth in the morning. 90 tablet 304/894694/6Active mirtazapine (Remeron) 15 mg tablet Pt not ickkyg86Discontinued(Med List Cleanup) fluticasone furoate-vilanteroL (Breo Ellipta) 100-25 mcg/dose inhaler Inhale in the morning.01/17/2025Discontinued(Med List Cleanup) aspirin 81 mg EC tablet Take 81 mg by mouth in the morning.01/17/2025Discontinued(Med List Cleanup) amiodarone (Pacerone) 200 mg tablet Indications:Paroxysmal atrial fibrillation (CMS/HCC)TAKE 2 TABLETS BY MOUTH TWO TIMES DAILY FOR 14 DAYS, THEN 1 TABLET IN THE MORNING. 132 tablet Discontinued(Med List Cleanup) Active Problems ProblemNoted DateDiagnosed DateBMI 40.0-44.9, adult12/14/2024bnormal findings on diagnostic imaging of heart and coronary zwqcgaoxcaq01/22/2025bnormal stress test07/06/2024oronary artery gcguque4607/06/2024Mood qinteseg20/27/2025 Cqavblxxekwbud15/19/2025 Assessment & Plan (05/12/2024 3:04 AM EST): Continue with home medication, levothyroxine 50 mcg tablet p.o. daily Caienlg4105/11/20249149Qientwkm74/18/2025ute on chronic congestive heart failure, unspecified heart failure type05/11/2024NSTEMI (non-ST elevated myocardial infarction)05/11/2024Fluid ofavqpkk68/18/2025Status post four vessel coronary artery awyvap8012/15/2023Multiple vessel coronary artery uypadzl2012/10/2023Multi- vessel coronary artery zyjyzxdy59/16/2024oronary artery disease involving orutsararmiut coronary artery of orutsararmiut heart without angina tgpjzsxe73/14/2024Unstable tliqbn6112/05/2023iabetes mellitus type II, non insulin wityjxfnf69/11/2024 Assessment & Plan (05/12/2024 3:04 AM EST): Insulin lispro per sliding scale before meals and at bedtime. Continue home medication Januvia 100 mg p.o. daily Assessment & Plan (12/04/2023 4:05 PM EDT): Diabetes is managed by PCP LOPEZ (dyspnea on exertion)12/03/2023 Assessment & Plan (05/12/2024 3:04 AM EST): [...] catheterization including but not limited to: Bleeding/bruising, infection,blood clot or damage to a blood vessel, abnormal heart rhythm, chest pain, heart attack, sudden blockage or tear/damage to a coronary artery, kidney damage from contrast, allergic reaction to medications/ or contrast, stroke, . 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 Will increase pyridostigmine to 120 mg qid, continue adequate hydration, additional salt to diet. Monitor b/p and SBP 140-150 is ok with known POTS. Chest pain01/22/2022 Assessment & Plan (12/04/2023 4:11 PM EDT): Chest tightness and LOPEZ will plan for cardiac cath in light of severe coronary calcifications noted, DM, HTN, HPL, abnormal ECG Vfscwsggnzty14/01/2022ulmonary chkaarsv20/01/2022upraventricular tachycardia 01/22/2022 Assessment & Plan (09/11/2022 9:41 AM EDT): Stable- continue toprol Primary pulmonary oyxhttgibtgb46/18/2014 Assessment & Plan (09/11/2022 9:40 AM EDT): Reports continued LOPEZ Will repeat echocardiogram to assess cardiac function and rt sided pressures Chronic pulmonary heart vphmuep9304/14/2013Morbid bvhirte2804/14/2013 Assessment & Plan (12/04/2023 4:01 PM EDT): Managed per PCP Recommended weight loss Obstructive sleep apnea ilvkpnkv03/22/2014 Assessment & Plan (05/12/2024 3:04 AM EST): Per primary team to consider addition of CPAP/BiPAP nightly Benign essential avaqaheechem25/19/2014 Assessment & Plan (05/12/2024 3:07 AM EST): [...] AM EDT): Hypertension is stable Continue toprol Bndmsqe5204/11/2013 Assessment & Plan (09/11/2022 9:42 AM EDT): Continued LOPEZ will repeat echocardiogram to assess rt sided pressures, recommended pt to quit smoking. Infarction of lung due to iatrogenic pulmonary xabcplvz83/19/2014 Encounters DateTypeDepartmentCare EwblIiymtnjcgyt04/27/2025 8:30 AM EDT - 01/17/2025 8:50 AM EDTSurgery [facility] Heart [facility] [address] [place] [address] Konrad Campoverde MD Loop insertion [[id number] (CPT??)]01/17/2025 6:50 AM EDT - 01/17/2025 9:52 AM EDT Hospital Encounter [facility] Heart [facility] [address] [place] [address] Konrad Campoverde MD Palpitations Discharge Disposition: Home or Self Care (01)01/17/20252029Ekzvji05/20/2025Travel 12/29/2024Telephone [facility] [address] [place] [address] Stacy Singh MA 12/29/2024Orders Only [address] [place] [address] Stacy Singh MA Bilateral lower extremity edema (Primary Dx); Dyspnea on /23/2025 1:00 PM EDTOffice Visit [facility] [address] [place] [address] Konrad Campoverde MD Palpitations (Primary Dx)12/14/2024Orders Only [facility] [address] [place] [address] Emerita Ramos MA Palpitations (Primary Dx)12/13/2024Orders Only [facility] [address] [place] [phone] Emerita Ramos MA Abnormal PFT (Primary Dx)12/02/2024Telephone [facility] [address] [place] [phone] Stacy Singh MA 12/01/2024Orders Only [address] [place] [phone] ProviderMassimo MD 11/03/2024Orders Only [facility] [address] [place] [address] Leslye Hickman LPN NSTEMI (non-ST elevated myocardial infarction) (CMS/HCC) (Primary Dx); Deficient knowledge of percutaneous coronary intervention (PCI) and stentingfrom Last 3 Months Immunizations ImmunizationAdministration DatesNext DueUnspecified Sars-Cov-2 Vaccination 05/17/2020,04/26/2020 Family History Medical HistoryRelationNameCommentsAlcohol abuseBrotherMigrainesDaughter 1Anemia FatherJames McNeishAtrial fibrillationFatherJames McNeishDiabetes type IIFather Rubio McNeishHypertensionFatherJames McNeishObesityFatherJames McNeishBreast cancerMotherBeverly McNeishCancerMotherBeverly McNeishDepressionMotherBeverly McNeishAutoimmune diseaseNephewPOTSNephewPOTSNieceLupusSisterAneurysmNeg Hx Sudden deathNeg HxRelationNameStatusCommentsBrotherDaughter 1AliveDaughter 2 AliveFatherJames McNeishDeceasedMotherBeverly McNeishDeceasedNephewAliveNiece AliveSister Social History Tobacco UseTypesPacks/DayYears UsedDateSmoking Tobacco: IblgbjZuahigluku678 Smokeless Tobacco: Never Tobacco Cessation:Counseling Given: Not Answered Alcohol UseStandard Drinks/WeekCommentsYes0 (1 standard drink = 0.6 oz pure alcohol)maybe every 2 or 3 months I have one while [facility] UtilitiesAnswerDate RecordedIn the past 12 months has the electric, gas, oil, or water company threatened to shut off services in your home?05/11/2024Humiliation, Afraid, Rape, and Kick questionnaireAnswerDate RecordedWithin the last year, have you been afraid of your partner or ex-partner?No05/11/2024Emotionally AbusedNot on file05/11/2024Physically AbusedNot on file05/11/2024Sexually AbusedNot on file 05/11/2024Overall Financial Resource Strain (CARDIA)AnswerDate RecordedHow hard is it for you to pay for the very basics like food, housing, medical care, and heating?Somewhat hard05/11/2024PHQ-2AnswerDate RecordedPatient Health Questionnaire-2 Hdakm358UT Safety & EnvironmentAnswerDate RecordedWithin the last year, have you been afraid of your partner or ex-partner?No11/11/2022 Within the last year, have you been humiliated or emotionally abused in other ways by your partner or ex-partner?No11/11/2022Within the last year, have you been kicked, hit, slapped, or otherwise physically hurt by your partner or ex-partner?No11/11/2022Within the last year, have you been raped or forced to have any kind of sexual activity by your partner or ex-partner?No11/11/2022 Physically or Sexually AbusedNot on file11/11/2022TransportationAnswerDate RecordedIn the past 12 months, has lack of transportation kept you from medical appointments or from getting medications?No05/11/2024Lack of Transportation (Non-Medical)Not on file05/11/2024Housing Stability Vital SignAnswerDate RecordedIn the last 12 months, was there a time when you were not able to pay the mortgage or rent on time?No05/11/2024Number of Times Moved in the Last Year Not on file05/11/2024t any time in the past 12 months, were you homeless or living in a [place] (including now)?No05/11/2024Hunger Vital SignAnswerDate RecordedWithin the past 12 months, you worried that your food would run out before you got the money to buymore.Never true05/11/2024Ran Out of Food in the Last YearNot on file05/11/2024CommentsNoSex and Gender InformationValue Date RecordedSex Assigned at BoyvoKtyrnz88/19/2025 3:28 PM EDTLegal SexFemale 09/19/2021 11:12 PM EDTGender QarhkzfxQtomxi56/ 3:28 PM EDTSexual OrientationHeterosexual or Wbjdqlid40/19/2025 3:28 PM EDT Last Filed Vital Signs Vital SignReadingTime TakenCommentsBlood Bdbyitom635/6001/17/2025 9:35 AM EDT Ksicp460901/17/2025 9:35 AM USXYoyrrlacbzk41.3 ??C (97.4 ??F)05/14/2024 3:26 PM ESTRespiratory Ksqz9369 9:35 AM EDTOxygen Lckwefqbjt254%01/17/2025 9:35 AM EDTInhaled Oxygen Concentration--Sjrwbs644 kg (241 lb)01/17/2025 7:08 AM EDT Qryoiq266.9 cm (5' 1 )01/17/2025 7:08 AM EDTBody Mass Index45.5401/17/2025 7:08 AM EDT Plan of Treatment Health MaintenanceDue DateLast DoneCommentsCT Sfoxroaahdit18/15/1962Colonoscopy 2Colorectal Cancer Nimiartul55/15/1962FIT-DNA1961FIT1961 FOBT2534Xhdyjxuiffmzx43/15/1962Diabetes: Retinopathy Jhbeqigqu33/15/1972 Depression Qfjdczedk33/15/1974Diabetes: Urine Protein Ruibncevh64/15/1981 Pneumococcal Vaccine: Pediatrics (0 to 5 Years) and At-Risk Patients (6 to 64 Years) (1 of 2 - PCV)1980Pap Smear1982Adult Yjmuzlv3111/06/1983 Cervical Cancer Xqpvfjsat57/15/1992HPV/Nxyglk0511/06/19911451Fwweqogpn98/15/2002Zoster Vaccines (1 of 2)11/06/2011Diabetes: Hemoglobin A1C12/14/943602//4COVID-19 Vaccine (3 - 2024- season)502/, 05/17/2020, 04/26/2020, Additional history existsInfluenza Vaccine (#1)11/22/2024HIB VaccinesAged OutNo longer eligible based on patient's age to complete this topicHPV VaccinesAged OutNo longer eligible based on patient's age to complete this topicIPV Vaccines Aged OutNo longer eligible based on patient's age to complete this topic Meningococcal B VaccineAged OutNo longer eligible based on patient's age to complete this topicMeningococcal VaccineAged OutNo longer eligible based on patient's age to complete this topicRotavirus VaccinesAged OutNo longer eligible based on patient's age to complete this topic Medical Devices ImplantedTypeAreaManufacturerDevice IdentifierShelf Expiration DateModel / Serial / LotClosure,Flx,Watchman,Michelle,35mm - [id number] Implanted:Qty: 1 on 12/15/2023 by [facility]: [facility] Cvvqbjfnna33/01/[id number] / / [id number]:Left atrial appendage clippingStent,Synergy Mr 2.50 X 24 - [id number] - [id number] Implanted:Qty: 1 on 07/21/2024 by Benito Bull [facility] Eluting StentRight: [employer]Finley [employer] [id number] / [id number] / [id number],Cardiac,Lux,Dxii+[facility] - [id number] - [id number] Implanted:Qty: 1 on 01/17/2025 by Konrad [facility]overde [facility]Implantable Loop RecorderN/A: [employer]05/07/2026M312 / [id number] / V Plate 4 Holes Implanted:Qty: 1 on 12/15/2023 by Woody [facility]ar [facility]/A: [id number] / / 16mm Screw Gold Implanted:Qty: 4 on 12/15/2023 by [facility]y [facility]ar [facility]/A: [id number] / / Procedures Procedure NamePriorityDate/TimeAssociated DiagnosisCommentsLOOP INSERTIONRoutine 01/17/2025 9:33 [...] the sternum on the left using the [employer] tool. The loop recorder was then injected [...] the incision. Konrad Campoverde MD Cardiac Electrophysiology. PULMONARY FUNCTION UJHUQVPNtczbid53/05/2025 2:15 PM EDTHEMOGLOBIN X2NRrw-Id 12/06/2023 6:18 AM EDT from Last 3 Months or Most Recently Relevant to Health Maintenance Results * Pulmonary function testing (11/26/2024 2:15 PM EDT)Anatomical RegionLaterality ModalityOther Narrative Authorizing ProviderResult TypeResult StatusHistorical Provider MDPFT ORDERABLES Final Result * Hemoglobin A1c (12/06/2023 6:18 AM EDT)ComponentValueRef RangeTest Method Analysis TimePerformed AtPathologist SignatureHemoglobin A1C5.84.0 - 6.0 % 12/07/2023 10:38 AM [facility] ([place])Estimated Average Agtehrx959 mg/dL12/07/2023 10:38 AM [facility] ([facility])Specimen (Source) Anatomical Location / LateralityCollection Method / VolumeCollection Time Received TimeBloodVenous blood specimen / UnknownArterial Line / Unknown 12/06/2023 6:18 AM EDT12/06/2023 7:06 AM EDT Narrative Authorizing ProviderResult TypeResult StatusAnanda Power CNPLAB BLOOD ORDERABLESFinal ResultPerforming OrganizationAddressCity/State/ZIP CodePhone Number [facility] ([place]) [address] [place] [address] from Last 3 Months or Most Recently Relevant to Health Maintenance Insurance Advance Directives * Full Code (Latest Code Status on File) Date ActivatedDate InactivatedComments07/21/2024 2:29 PM07/21/2024 8:36 PM * Full Code Date ActivatedDate InactivatedComments05/11/2024 10:28 PM2 5:54 PM * Full Code Date ActivatedDate PxvtwutkrexQxkmjmcr37/4/2024 3:53 PM10 5:46 PM * Full Code Date ActivatedDate InactivatedComments12/05/2023 5:22 PM12/08/2023 3:54 PM * Full Code Date ActivatedDate InactivatedComments12/05/2023 3:56 PM12/05/2023 5:22 PM Care Teams Team MemberRelationshipSpecialtyStart DateEnd Date Merissa Mayfield MD [address] [place] [address] #[facility] - Qnwdzsh66/1/22
--- OUTSIDE RECORDS SUMMARY | 2025-01-26 16:23 | XMS_ITS | Encounter Summary ---
Author Organization [facility] Address [address] [place] [address] Care Team Providers Care Alumni Secretary Name Role Phone Merissa Mayfield MD Primary Care Provider [phone] Encounter Details DateTypeDepartmentCare Team (Latest Contact Info)Rfsgmfmmzis99/07/2024Clinisync Result Encounter [facility] Unsolicited Dhruv Cuellar, DO [address] [place], [place] [id number] Social History Tobacco UseTypesPacks/DayYears UsedDateSmoking Tobacco: Every DayCigarettes Alcohol UseStandard Drinks/WeekCommentsNever0 (1 standard drink = 0.6 oz pure alcohol)CommentsUnknownSex and Gender InformationValueDate RecordedSex Assigned at BirthNot on fileLegal SgtAboreg84/01/2023 8:35 PM EDTGender Identity Not on fileSexual OrientationNot on filedocumented as of this encounter Plan of Treatment Not on file documented as of this encounter Procedures Procedure NamePriorityDate/TimeAssociated DiagnosisCommentsBD BONE DENSITY DEXA 05/29/2023 1:26 PM EST documented in this encounter Results * BD BONE DENSITY DEXA (05/29/2023 1:26 PM EST)Anatomical RegionLaterality ModalityOtherSpecimen (Source)Anatomical Location / LateralityCollection Method / VolumeCollection TimeReceived Time05/29/2023 1:26 PM EST Narrative 05/30/2023 10:24 AM EST Exam Date/Time: 05/29/2023 13:47 EST Reason for Exam: M58.89 Other specified disorders of bone density and structure, multiple sites Report IMPRESSION: The bone density measurements ??indicate OSTEOPENIA and places the patient at a mild to moderate increased risk for fracture. There may be a future risk of developing osteoporosis. Recommend follow-up exam in one year, sooner if clinically necessary. CLINICAL HISTORY: ??bone density evaluation COMPARISON: ??NONE. ?? FINDINGS: ?? Bone density measurements for the Left femoral neck are BMD 0.755g/cm2 ?Tscore -2.0 ?Age-matched Z score -1.5, Osteopenia Bone density measurements for the Right femoral neck are BMD 0.744g/cm2 ?Tscore -2.1 ?Age-matched Z score -1.6, Osteopenia Bone density measurements for the Left forearm are BMD 0.576g/cm2 ?Tscore -1.7 ?Age-matched Z score -0.7 osteopenia, FRAX SCORE 10 [...] who have the following: Primary fracture prevention: %??T-score d 2.5 at the femoral neck, total hip, lumbar spine, 33% radius (some uncertainty with existing data) by DXA. %??Low bone mass (osteopenia: T-score between 1.0 and 2.5) at the Report femoral neck or total hip by DXA with a 10-year hip fracture risk e 3% or a 10-year major osteoporosis-related fracture risk e 20% (i.e., clinical vertebral, hip, forearm, or proximal humerus) based on the [place]-adapted FRAX?? model. Secondary fracture prevention: %??Fracture of the hip or vertebra regardless of BMD [4, 5]. %??Fracture of proximal humerus, pelvis, or distal forearm in persons with low bone mass (osteopenia: T-score between 1.0 and 2.5). The decision to treat should be individualized in persons with a fracture of the proximal humerus, pelvis, or distal forearm who do not have osteopenia or low BMD [12, 13]. Ordering Provider: Dhruv Cuellar FINAL REPORT Dictated: ??05/30/2023 10:21 am ?Anam Ruff MD, V. Signed (Electronic Signature): ??05/30/2023 10:21 am Signed by: ??Anam Ruff MD, V. Transcribed by: ??DP ? Technologist: ??CC Procedure Note Radiology, Radiologist, - 05/30/2023 Exam [...] who have the following: Primary fracture prevention: %??T-score d 2.5 at the femoral neck, total hip, lumbar spine, 33% radius (some uncertainty with existing data) by DXA. %??Low bone mass (osteopenia: T-score between 1.0 and 2.5) at the Report femoral neck or total hip by DXA with a 10-year hip fracture risk e 3% ora 10-year major osteoporosis-related fracture risk e 20% (i.e., clinical vertebral, hip, forearm, or proximal humerus) based on the [place]-adaptedFRAX?? model. Secondary fracture prevention: %??Fracture of the hip or vertebra regardless of BMD [4, 5]. %??Fracture of proximal humerus, pelvis, or distal forearm [...] MD, V. Transcribed by: [place] Technologist: [place] Authorizing ProviderResult TypeResult StatusDavid A Pocos DOCLINISYNC IMAGING Final Result documented in this encounter Visit Diagnoses Not on filedocumented in this encounter Care Teams Team MemberRelationshipSpecialtyStart DateEnd Date Merissa Mayfield MD PCP - GeneralFamily Medicine05/12/23documented as of this encounter
--- OUTSIDE RECORDS SUMMARY | 2025-01-26 16:29 | XMS_ITS | CCD ---
Author Organization [facility] Care Team Providers Care Dispensary Clerk Name Role Phone Anibal Chaudhary Primary Care [...] MD Anibal Chaudhary Primary Care Provider [phone] MD Froilan Brown Admit Provider MD Petr Kowalski Attending Provider MD Anibal Chaudhary Primary Care Provider MD Froilan Brown Admit Provider MD Petr Kowalski Attending Provider Community, Outreach Attending Provider MD Anibal Chaudhary Primary Care Provider YANY AMEZCUA Attending Unavailable POCYANY PAULINO Referring Unavailable POCYANY PAULINO Referring Unavailable POCYANY PAULINO Attending Unavailable MD Anibal Chaudhary Primary Care Provider IDALIA Wagoner-C Pam Felder Attending Provider Pocos, Yany Jc Attending Unavailable Pocbernardo, Yany Jc Referring Unavailable ANIBAL CHAUDHARY Consulting Unavailable Yany Amezcua Admitting Unavailable Pocbernardo, Yany Jc Attending Unavailable Polo, Yany Jc Referring Unavailable MD ANIBAL CHAUDHARY Unavailable MD Anibal Chaudhary Primary Care Provider MD Anibal Chaudhary Attending Provider TOI ChenC Barby Fernandez Attending Provider ROCKY Navarro Attending Provider [phone] NON STAFF Primary Care Provider UnavailAnibal Luna MD Primary Care Provider Milo FRIEDMAN-Darryl Hall Attending Provider Anibal Chaudhary MD Attending Provider Ramy Santacruz MD Attending Provider [phone] Anibal Chaudhary MD Primary Care Provider ElmellohawAl sosa Attending Provider [phone] Anibal Chaudhary Primary Care Unavailable Ramy Santacruz Attending Unavailable Ramy Santacruz Admitting Unavailable MARCELLO WAGNER Admitting Unavailable MARCELLO WAGNER Attending Unavailable CAMILO, YASH Referring Unavailable KENDELL AGLLARDO Referring Unavailable KONRAD ADAMS Attending Unavailable ELMELLOHAWAL Sosa Attending Unavailable KONRAD ADAMS Attending Unavailable DARRYL PEDRAZA Attending Unavailable ALGHOTHANI, MOHAMAD Attending Unavailable DARRYL PEDRAZA Attending Unavailable ELTAHAWY, EH Referring Unavailable MARCELLO WAGNER Referring Unavailable KONRAD ADAMS Attending Unavailable ZENZKENDELL Referring Unavailable HORANI, EMILIE Referring Unavailable HORANI, EMILIE Admitting Unavailable MUNIRDARY Moore Attending Unavailable KONRAD ADAMS Admitting Unavailable KONRAD ADAMS Attending Unavailable Anibal Chaudhary MD Primary Care Provider [phone] Allergies Allergy ClassificationReported Allergen(s)Allergy TypeDate of OnsetReaction(s) FacilityUnclassified (1 source)[facility] ([facility] sources)CodeineDrug AllergyUnknownNorth Coast Wide Limited [employer] Other (20 sources)Metoclopramide; Translations: [METOCLOPRAMIDE]Drug Ivhujop04-48-6763 [facility], [facility] (13 sources)Sulfamethoxazole / TrimethoprimDrug AllergyUnkSaint Joseph's Hospital Wide Limited Release [employer] Other (13 sources)Sulfonamides (Antibiotic)Drug allergySt. Clare's Hospital Wide Limited Release [employer] Other (15 sources)Codeine; Translations: [CODEINE]Drug Usczibn65-43-3941[facility] (1 source)IothalamateDrug Vocfogi75-03-9713[facility] (1 source)MorphineDrug Icqiezm72-29-0509DxwMedina [facility] Rep[facility] (1 source)Sulfonamides (Antibiotic)Drug allergy (disorder)56-44-2153[facility]rxMedina [facility] (6 sources)CodeineDrug Zgxllvx97-76-5664[facility]ztcoMM[facility] (17 sources)Sulfonamides (Antibiotic); Translations: [Sulfa (Sulfonamide Antibiotics)]Allergy to jlfetwaur20-35-7715Abkoz, [facility] (14 sources)Sulfamethoxazole; Translations: [sulfamethoxazole]Drug Allergy 75-53-7709BtxhxCelgecjbuMiami Valley Hospital (14 sources)Trimethoprim; Translations: [trimethoprim]Drug Bnknagj52-83-7057 [facility] (1 source)CodeineDrug Gmhliam01-31-0657YmeunnspjFirelands [facility] (1 source)MetoclopramideDrug Ffwphlm92-64-8096BwvwpneowFirelands Regional Medical [facility] Rep[facility] (1 source)Metoclopramide; Translations: [METOCLOPRAMIDE HCL]Drug Allergy 02-77-5566[facility]unvhmcygkWood [facility] (1 source)Sulfonamides (Antibiotic)Drug Obnqtss31-78-3318SjsrwwzBay[facility] Medications Current Medications MedicationDrug Class(es)DatesSig (Normalized)Sig (Original)acetaminophen 325 mg / HYDROcodone bitartrate 5 mg oral tablet (20 sources)Opioid AgonistStart: 05-08-2023 End: 94-20-6969snhc 1 tablet by mouth every six hours as needed for pain HYDROcodone-acetaminophen ([place]) 5-325 MG tablet TAKE 1 TABLET BY MOUTH EVERY 6 HOURS NEEDED FOR PAIN FOR 7 DAYS 05/08/2023 ActiveStart: 88-70-2634cgwo 1 tablet by mouth every six hoursHYDROcodone-Acetaminophen 5-325 MG 1 tablet as needed Orally every 6 hrs for 7 days Jan, ActiveStart: 36-71-0329szvf 1 tablet by mouth every six hoursHYDROcodone-Acetaminophen 5-325 MG 1 tablet as needed Orally every 6 hrs for 30 days pt will pay out of pocket for entire amount Aug, ActiveStart: 34-78-7846hpdp 1 tablet by mouth every six hoursHYDROcodone-Acetaminophen 5-325 MG 1 tablet as needed Orally every 6 hrs for 30 days Apr, Nghpxq33 hr amphetamine aspartate 2.5 mg / amphetamine sulfate 2.5 mg / dextroamphetamine saccharate 2.5 mg / dextroamphetamine sulfate 2.5 mg extended release oral capsule (2 sources)Central Nervous System StimulantStart: 10-39-7466djow 1 capsule by mouth every twenty-four hoursAdderall XR 10 MG 1 capsule in the morning Orally Once a day for 30 days Dec, ActivebusPIRone hydrochloride 10 mg oral tablet (20 sources)Start: 05-08-2023 End: 78-52-7078zzcx 1 tablet by mouth in the morningbusPIRone (Buspar) 10 MG tablet Take 10 mg by mouth in the morning and 10 mg before bedtime. 05/08/2023 Activeclopidogrel 75 mg oral tablet (3 sources)P2Y12 Platelet InhibitorStart: 17-37-5195twbx 1 tablet by mouth once dailydapagliflozin 10 mg oral tablet (4 sources)Sodium-Glucose Cotransporter 2 InhibitorStart: 12-65-9467czaq 1 tablet by mouth once dailyfamotidine 20 mg oral tablet (1 source)Histamine-2 Receptor Antagonistfamotidine (Pepcid) 20 MG tablet Take by mouth Activefurosemide 40 mg oral tablet (7 sources)Loop DiureticStart: 25-08-3050ndqi 1 tablet by mouth twice daily Start: 01-22-2024 End: 45-52-6697eskz 1 tablet by mouth once dailyFurosemide 40 mg tablet Discontinued 40 MG PO Daily January 22, 2024 12:00am December 22, 2024 3:31pm lamoTRIgine 200 mg oral tablet (20 sources)Mood Stabilizer, Anti-epileptic AgentStart: 14-08-3503dylc 1 tablet by mouth once dailyStart: 51-56-0529pzvy 150 mg by mouth once dailyLamotrigine Active 150 MG PO Daily May 20, 2018 3:39pmStart: 05-20-2018 End: 36-59-7954Iderjmzvumz 150 mg tablet Discontinued 200 MG PO Daily May 20, 2018 1:00am July 10, 2023 1:44pmStart: 05-20-2018 End: 25-38-7832zrgt 200 mg by mouth once dailyLamotrigine Discontinued 200 MG PO Daily May 20, 2018 1:00am July 10, 2023 1:44pmtake 1 tablet by mouth every twenty-four hourslamoTRIgine 200 MG 1 tablet Orally Once a day for 90 days Activelevothyroxine sodium 0.075 mg oral tablet (20 sources)l-ThyroxineStart: 43-24-3520gtqy 1 tablet by mouth once dailyStart: 08-20-2023 End: 07-20-5755uzwa 1 tablet by mouth once dailyLevothyroxine 50 mcg tablet Discontinued 50 MCG PO Daily October 30, 2023 4:21pm March 5:40pm24 hr metoprolol succinate 25 mg extended release oral tablet (20 sources)beta-Adrenergic BlockerStart: 94-99-5729ktwg 1 tablet by mouth once dailyStart: 01-22-2024 End: 95-32-7453Zptwtvvels Tartrate 25 mg tablet Discontinued 12.5 MG PO Daily January 22, 2024 12:00am May 28, 2024 12:40pmStart: 53-22-8207twef 12.5 mg by mouth once dailyMetoprolol Tartrate Active 12.5 MG PO Daily January 22, 2024 12:00amStart: 59-92-3093bakp 1 tablet by mouth once dailymetoprolol succinate XL (Toprol-XL) 50 MG 24 hr tablet Take 1 tablet by mouth Daily 02/07/2023 ActiveStart: 45-74-4865ujfx 100 mg by mouth once dailyMetoprolol Succinate Active 100 MG PO Daily May 20, 2018 3:39pmStart: 05-20-2018 End: 38-57-1527qrli 2 tablets by mouth once dailyMetoprolol Succinate 100 mg tablet extended release 24 hr Discontinued 50 MG PO Daily May 20, 2018 1:00am January 22, 2024 10:11amStart: 05-20-2018 End: 42-90-5640kzmn 50 mg by mouth once dailyMetoprolol Succinate Discontinued 50 MG PO Daily May 20, 2018 1:00am January 22, 2024 10:11amMetoprolol Tartrate Not-Takingmidodrine hydrochloride 2.5 mg oral tablet (3 sources)alpha-Adrenergic Agonisttake 1 tablet by mouth every eight hours Midodrine HCl 2.5 MG 1 tablet three times a day Activepyridostigmine bromide 60 mg oral tablet (20 sources)Start: 08-67-2043aypw 2 tablets by mouth four times dailyStart: 12-24-2022 End: 16-62-5786Gzbbcwkydlkase [place] 180 mg Tablet Extended Release Discontinued 120 MG PO Daily December 24, 2022 12:00am December 24, 2022 8:13am Start: 12-24-2022 End: 10-07-5574apbp 2 tablets by mouth twice dailyPyridostigmine [place] 60 mg Tablet Discontinued 120 MG PO Twice daily 0 0 December 24, 2022 12:00am May 08, 2023 4:09pmStart: 21-91-2891binh 120 mg by mouth four times daily Pyridostigmine [place]arrison Active 120 MG PO Four times daily December 24, 2022 12:00amStart: 12-24-2022 End: 09-46-0060rtgr 120 mg by mouth once dailyPyridostigmine [place] Discontinued 120 MG PO Daily December 24, 2022 12:00am December 24, 2022 8:13am Start: 12-24-2022 End: 42-23-8881qptw 120 mg by mouth twice dailyPyridostigmine [place]arrison Discontinued 120 MG PO Twice daily 0 December 24, 2022 12:00am May 08, 2023 4:09pmpyridostigmine (Mestinon) 60 MG tablet Take by mouth Active rivaroxaban 20 mg oral tablet (20 sources)Factor Xa InhibitorStart: 01-62-0205ddys 1 tablet by mouth once dailyStart: 10-22-2023 End: 11-12-8165mdhz 1 tablet by mouth once dailyRivaroxaban (Xarelto) 20 mg tablet Discontinued 0 .ROUTE .COMPLEX 90 3 December 21, 2024 11:54amOct2024 3:31pm TAKE 1 TABLET BY MOUTH ONCE DAILYStart: 12-24-2022 End: 09-38-1084wtcq 1 tablet by mouth once dailyRivaroxaban (Xarelto) 20 mg tablet Discontinued 20 MG PO Daily 90 0 July 25, 2023 9:06am September 8:35amrOPINIRole 0.5 mg oral tablet (5 sources)Nonergot Dopamine Agonisttake 1 tablet by mouth once daily at bedtime rOPINIRole HCl 0.5 MG 1 tablet 1 to 3 hours before bedtime Orally Once a day Activerosuvastatin calcium 20 mg oral tablet (4 sources)HMG-CoA Reductase InhibitorStart: 86-57-9088gmuj 1 tablet by mouth once dailysacubitril 24 mg / valsartan 26 mg oral tablet (6 sources)Angiotensin 2 Receptor BlockerStart: 56-87-3230avvs 0.5 tablet by mouth once dailyStart: 05-28-2024 End: 32-18-9940pzki 0.5 tablet by mouth twice dailySacubitril-Valsartan (Entresto) 24-26 mg tablet Discontinued 0.5 TAB PO Twice daily May 28, 2024 1:00am December 22, 2024 3:38pmspironolactone 25 mg oral tablet (10 sources)Aldosterone AntagonistStart: 80-94-4873Imuam: 42-90-2135skjz 12.5 mg by mouth once dailySpironolactone Active 12.5 MG PO Daily January 22, 2024 10:12amStart: 01-22-2024 End: 81-82-8885ajbz 1 tablet by mouth once dailySpironolactone 25 mg tablet Discontinued 25 MG PO Daily January 22, 2024 12:00am January 22, 2024 10:14amtiZANidine 4 mg oral tablet (5 sources)Central alpha-2 Adrenergic Agonisttake 1 tablet by mouth once daily at bedtime as neededtiZANidine HCl 4 MG TAKE 1 TABLET BY MOUTH EVERY DAY AT BEDTIME NEEDED for 90 days ActivetraZODone hydrochloride 50 mg oral tablet (20 sources)Serotonin Reuptake InhibitorStart: 05-08-2023 End: 82-16-7761uzwi 1 tablet by mouth at bedtimetraZODone (Desyrel) 50 MG tablet Take 50 mg by mouth at bedtime 05/08/2023 Bwuzas94 hr venlafaxine 150 mg extended release oral capsule (20 sources)Serotonin and Norepinephrine Reuptake InhibitorStart: 82-63-4683zchp 1 capsule by mouth once dailyStart: 05-92-7929kvqs 300 mg by mouth once daily Venlafaxine Active 300 MG PO Daily May 20, 2018 1:00amtake 2 capsules by mouth once dailyVenlafaxine HCl ER 150 MG TAKE 2 CAPSULES BY MOUTH DAILY for 90 ActiveEffexor XR Not-Taking Completed/Discontinued Medications MedicationDrug Class(es)DatesSig (Normalized)Sig (Original)acetaminophen 500 mg oral tablet (15 sources)Start: 12-24-2022 End: 46-55-0775keld 1 tablet by mouth twice daily as needed for pain Acetaminophen 500 mg Tablet Discontinued 500 MG PO Twice daily as needed for Pain December 242:00am May 28, 2024 12:98vynwq875685 200 actuat albuterol 0.09 mg/actuat metered dose inhaler (5 sources)beta2-Adrenergic AgonistStart: 22-86-7842tgdo 2 puff(s) by inhalation every six hours as neededVentolin HFA 108 (90 Base) MCG/ACT 2 puffs as needed Inhalation every 6h prn Jun, Not-Takingamiodarone hydrochloride 200 mg oral tablet (3 sources)AntiarrhythmicStart: 09-03-2024 End: 06-09-9733pkdg 1 tablet by mouth once dailyAmiodarone 200 mg tablet Discontinued 200 MG PO Daily September 03, 2024 12:00am December 21, 2024 1 1:31amaspirin 81 mg delayed release oral tablet (5 sources)Platelet Aggregation Inhibitor, Nonsteroidal Anti-inflammatory Drug Start: 01-22-2024 End: 38-11-5960dpgx 1 tablet by mouth once dailyAspirin 81 mg tablet,delayed release (DR/EC) Discontinued 81 MG PO Daily January 22, 2024 12:00amSept2024 11:31amatorvastatin 40 mg oral tablet (5 sources)HMG-CoA Reductase InhibitorStart: 01-22-2024 End: 66-59-3569oevc 1 tablet by mouth once dailyAtorvastatin 40 mg tablet Discontinued 40 MG PO Daily January 22, 2024 12:00am May 28, 2024 12:42pm benzonatate 100 mg oral capsule (5 sources)Non-narcotic AntitussiveStart: 92-56-4347trci 1 capsule by mouth every eight hoursTessalon Perles 100 MG 1 capsule as needed Orally Three times a day Jun, Not-Takingcariprazine 3 mg oral capsule (11 sources)Atypical AntipsychoticStart: 08-19-2023 End: 34-41-3249omkv 1 capsule by mouth once dailyCariprazine (Vraylar) 3 mg capsule Discontinued 3 MG PO Daily August 19, 2023 12:00am May 28, 2024 12:42pmcholecalciferol 1.25 mg oral capsule (20 sources)Vitamin DStart: 10-06-2023 End: 55-37-5890dbhb 1 capsule by mouth every weekCholecalciferol (Vitamin D3) 1,250 mcg (50,000 unit) capsule Discontinued 0 .ROUTE .COMPLEX 4 3 October 06, 2023 10:00am May 28, 2024 12:42pm TAKE 1 CAPSULE BY MOUTH ONCE A WEEKStart: 98-23-9536voks 1 capsule by mouth every weekCholecalciferol (Vitamin D3) Active 0 .ROUTE .COMPLEX 4 October 06, 2023 10:00am TAKE 1 CAPSULE BY MOUTH ONCE A WEEK Start: 07-18-2023 End: 95-36-9637xect 1 capsule by mouth every weekCholecalciferol (Vitamin D3) 1,250 mcg (50,000 unit) capsule Discontinued 1250 MCG PO every week 1390 0 July 18, 2023 12:00am October 06, 2023 10:00am30 actuat fluticasone furoate 0.1 mg/actuat / vilanterol 0.025 mg/actuat dry powder inhaler (5 sources)Corticosteroid, beta2-Adrenergic AgonistStart: 01-22-2024 End: 12-39-9482Kkheudqfbfr Furoate-Vilanterol (Breo Ellipta) 100-25 mcg/dose blister with device Discontinued INHALATION January 22, 2024 12:00am May 28, 2024 12:39pmhydroxychloroquine sulfate 200 mg oral tablet (20 sources)Antimalarial, Antirheumatic AgentStart: 05-20-2018 End: 68-53-7308sgsk 1 tablet by mouth twice dailyHydroxychloroquine 200 mg tablet Discontinued 200 MG PO Twice daily May 20, 2018 1:00am May 28, 2024 12:42pmketorolac tromethamine 5 mg/ml ophthalmic solution (15 sources)Nonsteroidal Anti-inflammatory Drug, Cyclooxygenase InhibitorStart: 12-24-2022 End: 17-93-4182lkzv 1 drop(s) into the eye(s) four times dailyKetorolac 0.5 % drops Discontinued 1 DROPS EYE-RIGHT Four times daily December 24, 2022 12:00am May 08, 2023 4:08pmStart: 12-24-2022 End: 28-30-8375wqty 1 drop(s) into the eye(s) four times dailyKetorolac 0.5 % drops Discontinued 1 DROPS EYE-RIGHT Four times daily December 24, 2022 12:00am May 08, 2023 4:08pmStart: 12-24-2022 End: 70-36-7244vzcw 1 drop(s) into the eye(s) four times dailyKetorolac Discontinued 1 DROPS EYE-RIGHT Four times daily December 24, 2022 12:00am May 08, 2023 4:08pmlisinopril 5 mg oral tablet (20 sources)Angiotensin Converting Enzyme InhibitorStart: 05-20-2018 End: 75-76-2069ugey 1 tablet by mouth once dailyLisinopril 5 mg tablet Discontinued 5 MG PO Daily May 20, 2018 1:00am December 24, 2022 3:02am Lisinopril Not-Takingmagnesium oxide 400 mg oral tablet (5 sources)Start: 01-22-2024 End: 50-42-0707cvlz 1 tablet by mouth twice dailyMagnesium Oxide 400 mg magnesium tablet Discontinued 400 MG PO Twice daily January 22, 2024 12:00am December 21, 2024 11:30ammirtazapine 15 mg oral tablet (5 sources)Start: 01-22-2024 End: 59-07-9075ojaz 1 tablet by mouth once dailyMirtazapine 15 mg tablet Discontinued 15 MG PO Daily January 22, 2024 12:00am May 28, 2024 12:40pm mupirocin 0.02 mg/mg topical ointment (20 sources)RNA Synthetase Inhibitor AntibacterialStart: 10-24-2023 End: 69-24-1744Wwxddkaiq 2 % ointment Discontinued 1 APPLIC TOPICAL Twice daily October 24, 2023 12:00am May 28, 2024 12:42pm FreeTextSi application Externally Twice a day; Note: Source Status: Taking; Refills: 1; Qty: 22 Gram; Provider: Chaparro Craven EStart: 83-28-3031Ibxcqtvdw Active 1 APPLIC TOPICAL Twice daily October 24, 2023 12:00am FreeTextSi application Externally Twice a day; Note: Source Status: Taking; Refills: 1; Qty: 22 Gram; Provider: Chaparro PalafoxStart: 99-20-8742Ewrgtqkub 2 % 1 application Externally Twice a day for 5 day(s) Apr, ActiveOmeprazole (5 sources)Proton Pump InhibitorOmeprazole Not-Takingondansetron 4 mg oral tablet (4 sources)Serotonin-3 Receptor AntagonistStart: 05-28-2024 End: 06-92-3211kkim 1 tablet by mouth every eight hours as needed for nausea and vomitingOndansetron Hcl 4 mg tablet Discontinued 4 MG PO Every 8 hours as needed for nausea and vomiting 300 May 28, 2024 1:00am December 21, 2024 11:30am QUEtiapine 25 mg oral tablet (11 sources)Atypical AntipsychoticStart: 08-19-2023 End: 14-03-3217ermd 1 tablet by mouth once daily at bedtimeQuetiapine (Seroquel) 25 mg tablet Discontinued 25 MG PO Daily at bedtime August 19, 2023 12:00am Oct 2:29pmSITagliptin 100 mg oral tablet (20 sources)Dipeptidyl Peptidase 4 InhibitorStart: 09-09-2023 End: 79-46-1587phpk 1 tablet by mouth once dailySitagliptin Phosphate (Januvia) 100 mg tablet Discontinued 0 .ROUTE .COMPLEX 90 0 December 03, 2023 9:46am May 28, 2024 12:41pm TAKE 1 TABLET BY MOUTH DAILYStart: 12-24-2022 End: 01-64-2300vkbg 1 tablet by mouth once dailySitagliptin Phosphate (Januvia) 100 mg tablet Discontinued 100 MG PO Daily December 24, 2022 12:00am September 09, 2023 9:11amsodium chloride 1000 mg oral tablet (12 sources)Start: 10-24-2023 End: 41-60-9024fcoa 1 tablet by mouth once dailySodium Chloride 1,000 mg tablet,soluble Discontinued 1 TAB PO Daily October 24, 2023 12:00am May 28, 2024 12:41pm FreeTextSi tablet Orally daily; Note: Source Status: Start; Refills: 1; Qty: 90 Tablet; Provider: Chaparro Alonzo 1 tablet by mouth every twenty-four hoursSodium Chloride 1 GM 1 tablet Orally daily for 90 days Active temazepam 15 mg oral capsule (20 sources)BenzodiazepineStart: 05-08-2023 End: 38-90-7264tzbj 1 capsule by mouth once daily at bedtimeTemazepam (Restoril) 15 mg capsule Discontinued 15 MG PO Daily at bedtime May 08, 2023 1:00am May 08, 2023 4:37pmStart: 51-47-4229avmb 1 capsule by mouth every twenty- four hoursTemazepam 15 MG 1 capsule at bedtime as needed Orally Once a day for 30 days Aug, ActivetraMADol hydrochloride 50 mg oral tablet (20 sources)Opioid AgonistStart: 08-19-2023 End: 90-45-8513yxey 1 tablet by mouth twice daily as neededTramadol 50 mg tablet Discontinued 50 MG PO Twice daily as needed August 19, 2023 12:00am January 22, 2024 10:20amStart: 12-24-2022 End: 10-32-6867ptrt 1 tablet by mouth every eight hoursTramadol 50 mg tablet Discontinued 50 MG PO Q8H December 24, 2022 12:00am May 08, 2023 4:10pm Start: 89-51-2191zesl 1 tablet by mouth three times daily as neededtraMADol HCl 50 MG 1 tablet as needed Orally tid prn for 30 days Aug, Activewarfarin sodium 10 mg oral tablet (20 sources)Vitamin K AntagonistStart: 05-20-2018 End: 48-18-7472ausp 5 mg by mouth once dailyWarfarin 10 mg tablet Discontinued 5 MG PO Daily May 20, 2018 1:00am December 24, 2022 3:03amStart: 05-20-2018 End: 64-75-6045wnkd 5 mg by mouth once dailyWarfarin Discontinued 5 MG PO Daily May 20, 2018 1:00am December 24, 2022 3:03amWarfarin Sodium Not-Taking Problems Active Problems Problem ClassificationProblemDateDocumented DateEpisodic/ChronicAcute myocardial infarction (2 sources)Non-ST elevation (NSTEMI) myocardial infarction; Translations: [Non- ST elevation (NSTEMI) myocardial infarction]Onset: 19-40-6693Hlfnhgc Administrative/social admission (1 source)Counseling procedure with explicit context; Translations: [Dietary counseling and surveillance]EpisodicAnxiety disorders (16 sources)Anxiety; Translations: [Other specified anxiety disorders]Chronic Cardiac dysrhythmias (2 sources)Paroxysmal atrial fibrillation; Translations: [Paroxysmal atrial fibrillation]Onset: 10-06-3056JlrdjpeTanxvgs dysrhythmias (4 sources)Tachycardia; Translations: [Tachycardia, unspecified]Onset: 91-04-9549BfsvpnxjCrxapsj kidney disease (3 sources)Chronic kidney disease stage 3; Translations: [Stage 3 chronic kidney disease]73-77-5322TajcorhKsqpqqq kidney disease (1 source)Chronic kidney disease; Translations: [Chronic kidney disease, stage 3 unspecified]Onset: 92-67-1951Mmelebp obstructive pulmonary disease and bronchiectasis (4 sources)Chronic obstructive lung disease; Translations: [Chronic obstructive pulmonary disease, unspecified]82-99-5359KtiywkxOspaanc obstructive pulmonary disease and bronchiectasis (1 source)Chronic obstructive pulmonary disease and bronchiectasisCongestive heart failure; nonhypertensive (4 sources)Acute on chronic combined systolic (congestive) and diastolic (congestive) heart failure; Translations: [Heart failure, unspecified]Onset: 53-54-6310OaoaiktDafdmegq atherosclerosis and other heart disease (15 sources)Coronary arteriosclerosis; Translations: [Atherosclerotic heart disease of [place] coronary artery without angina pectoris]Onset: 05-11-2024 05-27-1456WblhptwTivaqpet mellitus with complications (20 sources)Hyperglycemia due to type 2 diabetes mellitus; Translations: [Type 2 diabetes mellitus with hyperglycemia]Onset: 538357-43-6677CiwvoczZscsgute mellitus without complication (17 sources)Diabetes mellitus without complication; Translations: [Diabetes mellitus due to underlying condition without complications]ChronicDisorders of lipid metabolism (4 sources)Hyperlipidemia; Translations: [Hyperlipidemia, unspecified]Onset: 251943-43-8964IkhuidaMcxjwwfvu usually diagnosed in infancy, childhood, or adolescence (3 sources)Adult attention deficit hyperactivity disorder ; Translations: [Other specified behavioral and emotional disorders with onset usually occurring in childhood and adolescence]ChronicE Codes: Fall (17 sources)Fall; Translations: [Unspecified fall, initial encounter]12-24-2022 EpisodicEssential hypertension (16 sources)Hypertensive disorder; Translations: [Essential (primary) hypertension]26-69-3891OqupopaNxbhh and electrolyte disorders (18 sources)Hyponatremia; Translations: [Hypo-osmolality and hyponatremia] 93-63-3547DwefapnzRwrhzkwkhobee symptoms and ill-defined conditions (14 sources)Increased frequency of urination; Translations: [Frequency of micturition]67-48-3577RjjfivwrOtjuzjjomucz with complications and secondary hypertension (4 sources)Chronic kidney disease due to hypertension; Translations: [Hypertensive chronic kidney disease withstage 1 through stage 4 chronic kidney disease, or unspecified chronic kidney disease]Onset: ChronicImmunizations and screening for infectious disease (1 source)Raised antibody titer; Translations: [RAISED ANTIBODY TITER]Onset: 49-99-9624PnibhlhjSjcxkyl and fatigue (2 sources)Fatigue; Translations: [Other fatigue]EpisodicMiscellaneous mental health disorders (9 sources)Primary insomnia; Translations: [Primary insomnia]ChronicMood disorders (20 sources)Depressive disorder; Translations: [Depressive disorder]Onset: 192283-06-7349ZqqmpllZpqqnysmgzhqsl (15 sources)Osteoarthritis; Translations: [Unspecified osteoarthritis, unspecified site]Onset: 217326-98-1342IkmvepxVtwgr acquired deformities (13 sources)Contracture of joint of hand; Translations: [Contracture, unspecified hand]ChronicOther aftercare (1 source)Other oysterman (current) drug therapy; Translations: [OTH DETENTION CURRENT DRUG THERAPY]Onset: 22-68-9072VjpscmytIolul circulatory disease (1 source)Other specified symptoms and signs involving the circulatory and respiratory systemsEpisodicOther diseases of kidney and ureters (3 sources)Secondary hyperparathyroidism; Translations: [Secondary hyperparathyroidism of renal origin]43-89-7923TdwjellGfull diseases of kidney and ureters (1 source)Secondary hyperparathyroidism of renal origin; Translations: [Secondary hyperparathyroidism of renal origin]Onset: 55-74-9071BbngjboUzjxs gastrointestinal disorders (13 sources)Irritable bowel syndrome; Translations: [Irritable bowel syndrome without diarrhea]ChronicOther gastrointestinal disorders (2 sources)Irritable bowel syndrome with diarrhea; Translations: [Irritable bowel syndrome with diarrhea]ChronicOther hereditary and degenerative nervous system conditions (12 sources)Resting tremor; Translations: [Other specified forms of tremor] ChronicOther hereditary and degenerative nervous system conditions (1 source)Other specified forms of tremor; Translations: [Resting tremor]Chronic Other hereditary and degenerative nervous system conditions (2 sources)Tremor; Translations: [Other specified forms of tremor]ChronicOther lower respiratory disease (2 sources)Pleuritic pain; Translations: [Pleurodynia]EpisodicOther lower respiratory disease (4 sources)Dyspnea on exertion; Translations: [Other forms of dyspnea]12-21-2024 EpisodicOther non-traumatic joint disorders (5 sources)Polyarthritis, unspecified; Translations: [POLYARTHRITIS UNSPECIFIED] Onset: 12-38-4610UfipsboGbpsf non-traumatic joint disorders (13 sources)Arthralgia of the pelvic region and thigh; Translations: [Pain in right hip]EpisodicOther non-traumatic joint disorders (5 sources)Pain in right hip; Translations: [Pain in joint, pelvic region and thigh]EpisodicOther non-traumatic joint disorders (2 sources)Pain in right hip joint; Translations: [Pain in right hip]Episodic Other non-traumatic joint disorders (15 sources)Hip pain; Translations: [Pain in right hip]74-68-8712QjeauwajTevde nutritional; endocrine; and metabolic disorders (2 sources)Morbid obesity; Translations: [Morbid (severe) obesity due to excess calories]Onset: 29-68-9120PecxejhGbxnp nutritional; endocrine; and metabolic disorders (2 sources)Body mass index 40+ - severely obese; Translations: [Body mass index (BMI) 40.0-44.9, adult]ChronicOther nutritional; endocrine; and metabolic disorders (2 sources)Morbid (severe) obesity due to excess calories; Translations: [Morbid (severe) obesity due to excess calories]Onset: 15-94-4953GogvvgsQhaun nutritional; endocrine; and metabolic disorders (12 sources)Excessive thirst; Translations: [Polydipsia]EpisodicOther nutritional; endocrine; and metabolic disorders (1 source)Polydipsia; Translations: [Polydipsia]EpisodicOther skin disorders (1 source)Disorder of the skin and subcutaneous tissue, unspecifiedEpisodicOther upper respiratory disease (1 source)Other specified disorders of nose and nasal sinusesEpisodicOther upper respiratory infections (15 sources)Bacterial sinusitis; Translations: [Chronic sinusitis, unspecified] ChronicParkinson`s disease (15 sources)Parkinsonism; Translations: [Parkinson's disease]ChronicPhlebitis; thrombophlebitis and thromboembolism (17 sources)H/O: Deep vein thrombosis; Translations: [Personal history of other venous thrombosis and embolism]42-77-6466VsnreqliSrjziaitm heart disease (15 sources)Pulmonary embolism; Translations: [Other pulmonary embolism without acute cor pulmonale]Onset: 39-45-3823BhwohnlmVevxpbqz codes; unclassified (15 sources)Obstructive sleep apnea syndrome; Translations: [Obstructive sleep apnea (adult) (pediatric)]Onset: 10-51-2415LyyqseqPpzwntlh codes; unclassified (1 source)Obstructive sleep apnea (adult) (pediatric)ChronicResidual codes; unclassified (2 sources)Family history of breast cancer; Translations: [Family history of malignant neoplasm of breast]EpisodicResidual codes; unclassified (11 sources)Edema of lower extremity; Translations: [Localized edema]08-19-2023 EpisodicResidual codes; unclassified (3 sources)Localized edema; Translations: [Edema]59-57-2233AeuesyolCgczmyfssy arthritis and related disease (20 sources)Rheumatoid arthritis; Translations: [Rheumatoid arthritis, unspecified]ChronicSpondylosis; intervertebral disc disorders; other back problems (20 sources)Low back pain; Translations: [Lumbar pain]Onset: 97-28-3203Syjmcmdc Tuberculosis (1 source)Tuberculosis of spineEpisodicUnclassified (1 source)Supraventricular tachycardia, unspecified; Translations: [Supraventricular tachycardia, unspecified]Onset: 01-22-2022 Past or Other Problems Problem ClassificationProblemDateDocumented DateEpisodic/ChronicAcute bronchitis (2 sources)Acute bronchitis; Translations: [Acute bronchitis, unspecified]Onset: 35-08-4083KvgqbvlhYoguimcz atherosclerosis and other heart disease (2 sources)Presence of aortocoronary bypass graft; Translations: [Presence of aortocoronary bypass graft]Onset: 84-82-9481WpotondwDpnycsjm mellitus without complication (2 sources)Hyperglycemia; Translations: [Hyperglycemia, unspecified]Onset: 97-57-9341QhhpsrziAnart lower respiratory disease (2 sources)Other forms of dyspnea; Translations: [Other forms of dyspnea]Onset: 98-80-5740DxxcftfmZaimg non-traumatic joint disorders (2 sources)Joint pain; Translations: [Pain in unspecified joint]Onset: 84-93-6309WwjylptsOybrv screening for suspected conditions (not mental disorders or infectious disease) (20 sources)Raised cardiac enzyme or marker; Translations: [Other specified abnormal findings of blood chemistry]Onset: 388148-62-3547NotkaeqrUdavfmat codes; unclassified (2 sources)Insomnia; Translations: [Insomnia, unspecified]Onset: 09-10-2018 EpisodicResidual codes; unclassified (2 sources)Tobacco use; Translations: [Tobacco use]Onset: 50-89-2550Xksegool Unclassified (2 sources)Lumbar pain M54.50Unclassified (4 sources)Depressive disorder F32.AUnclassified (1 source)Supraventricular tachycardia, unspecified; Translations: [Supraventricular tachycardia, unspecified]Onset: 08-31-2024 Results Test NameValueInterpretationReference RangeFacilityHPon [id number] Attestation signed by Konrad Adams MD at 01/17/2025 9:34 AM By using the attestations below, the signing clinician agrees that I have read and verify that the documentation has been personally reviewed by me and ensure that the documentation accurately reflects the encounter. GC: I performed the sevilla portion(s) of the service and participated in the management and confirm the resident's documentation. Please note there may be an additional personal documentation from me. [place] Electrophysiology Consult Note Reason for visit: Palpitations [...] PCI to distal RCA. Although there were residual stenosis from SVG graft insertion to OM 2 [...] LAUREN clip) in November 2023, hypothyroidism, paroxysmal A-fib, diabetes mellitus type 2, hyperlipidemia, tobacco abuse, morbid obesity with a BMI of 51 who has previously been seen by Francie Pedraza. She has endorsed history of ongoing shortness of breath and fatigue as well as accompanying chest discomfort with intermittent palpitations. This has been an ongoing issue with on and off throughout the day and with no specific correlation to activity. [...] appreciation of a P wave makes A-fib less likely although cannot be excluded. Occasional PVCs were [...] Year: No Utilities: Not At Risk (05/11/2024) [facility] Utilities Threatened with loss of utilities: No Health Literacy: Not on file Allergies: Allergies Allergies Allergen (more content not included)...[facility] NURSNOTEon 96-94-9837SVQHEEFBMR educated pt on d/c instructions. This included: site care, limited physical activity, resume normal diet, future appointments, medications, and moderate sedation instructions. RN educated pt on when to notify physician and when to go to the hospital. RN educated pt on importance of removing dressing in 5 days after the procedure and monitoring site for infection. RN encouraged pt to voice any questions or concerns, and answered any questions or concerns if pt verbalized. Pt was wheeled off of unit with all of belongings.[facility] HospitalUS renal BIon 47-05-3081SD renal [facility] [address] Ultrasound Report Signed Patient: Ruma Carlton MR#: [id number] 7 : 1960 Acct:[id number] Age/Sex: 64 / F ADM Date: 01/11/25 Loc: Room: Type: [facility] [address] Attending Dr: Ramy Santacruz MD Ordering Provider: Ramy Santacruz MD Date of Service: 01/11/25 US/US renal BI: N18.30 - Chronic kidney disease, stage 3 unspecified Copies to: Ramy Santacruz MD Bilateral Renal Ultrasound HISTORY: Chronic kidney disease [...] Mckeon M.D. 01/11/2025 1:54 PM Dictation Location: [place] [address] Tech: Ghazala Marva Transcribed By: CHRISTIAN 01/11/25 1354 Dictated By: Prosper Mckeon DO 01/11/25 1353 Signed By: 01/11/25 1354[facility] Physician Lfots23ur [id number] from [facility] Card[facility] Rehab made us aware of patient's 5# weight gain over the weekend. Says she took an extra lasix tablet. Currently taking lasix 40mg bid and spironolactone 12.5mg daily. I ordered labs to see if renal function would allow for increase in lasix. Will update Dr. Johnson once lab results are received. Results are in digital media designer for your review. Thanks.[facility] HospitalGlomerular filtration rate (GFR) estimation in non- AmericanOrdered By: Al Johnson on 41-87-7139OGG/1.73 sq M.predicted among non-blacks MDRD (S/P/Bld) [Vol rate/Area]33 mL/min/{1.73_m2}Low>=60 mL/min/1.73m 2FTwin City HospitalLaboratory - Chemistry and Chemistry - challengeOrdered By: Al Johnson on 48-42-0683Yrhspwy [Mass/Vol]9.2 mg/dL 8.5-10.1FTwin City HospitalChloride [Moles/Vol]102 mmol/L98-107 [facility] CampusCO2 [Moles/Vol]32.1 mmol/LHigh21.0-32.0 [facility] CampusCreatinine [Mass/Vol]1.60 mg/dLHigh0.55-1.02 [facility] CampusGFR/1.73 sq M.predicted MDRD (S/P/Bld) [Vol rate/Area]39 mL/min/{1.73_m2}Low>=60 mL/min/1.73m 2FTwin City HospitalGlucose [Mass/Vol]150 mg/uXIgok42-302QixjhxemsFirelands [facility] Campus Natriuretic peptide B (Bld) [Mass/Vol]707.0 pg/mL<=900.0[facility] CampusPotassium [Moles/Vol]3.8 mmol/L3.5-5.1FOhioHealth Shelby Hospitalodium [Moles/Vol]143 mmol/R972-954FthlmbpxiFirelands Regional Medical Center South CampusUrea nitrogen [Mass/Vol]25.0 mg/dLHigh7.0-18.0[facility] CampusUrea nitrogen/Creatinine [Mass ratio]15.6 mg/mgFirelands Regional Medical Center South Campus Laboratory - Chemistry and Chemistry - challengeOrdered By: Anibal Chaudhary on 24-08-1526Vvdf T4 [Mass/Vol]1.24 ng/dL0.76-1.46[facility] TSH Qn9.512 m[IU]/LHigh0.358-3.740Avita Health Systemerum or plasma anion gap determinationOrdered By: Al Johnson on 10-26-9651Zrvgu gap [Moles/Vol]12.7 mmol/LFTwin City HospitalTelephoneon 12-29-2024 [id number] BrandtRuma 1960 F Date Provider Department Center 12/29/2024 STACY DUDLEY SREEDHAR [place] Family History Problem Relation Age of Onset Breast cancer Mother 65 Cancer Mother Depression Mother Anemia Father Atrial fibrillation Father Diabetes type II Father Hypertension Father Obesity Father Lupus Sister Alcohol abuse Brother Other Niece Migraines Daughter Other Nephew Autoimmune disease Nephew Sudden Neg Hx Aneurysm Neg Hx Family Status - Relation Status Age at Mother Father Sister Brother Niece Alive Daughter Alive Daughter Alive Nephew Alive Neg HxNormalUniversity of Ut Health North Campus TylerOffice Visiton 96-46-5821Uohdsd- up [id number] BrandtRuma 1960 F Date Provider Department Center 12/14/2024 KONRAD MACDONALD [facility]REEDHAR [facility] Family History Problem Relation Age of Onset Breast cancer Mother 65 Cancer Mother Depression Mother Anemia Father Atrial fibrillation Father Diabetes type II Father Hypertension Father Obesity Father Lupus Sister Alcohol abuse Brother Other Niece Migraines Daughter Other Nephew Autoimmune disease Nephew Sudden Neg Hx Aneurysm Neg Hx Family Status - Relation Status Age at Mother Father Sister Brother Niece Alive Daughter Alive Daughter Alive Nephew Alive Neg Hx Level of Service:04700 ID OFFICE/OUTPATIENT ESTABLISHED LOW MDM 20 [facility]36on [id number] [facility] [place] [id number] PFT result from 11/26/2024: Al Johnson MD to De (Selected Message) 12/01/24 4:23 PM Please let her know her pulmonary function tests are abnormal and I would recommend she see a drafter automotive design. Thank [facility] HospitalTelephoneon 12-02-2024 [id number] Ruma Carlton 1960 F Date Provider Department Center 12/02/2024 928-STACY BRADY CARD [facility] Family History Problem Relation Age of Onset Breast cancer Mother 65 Cancer Mother Depression Mother Anemia Father Atrial fibrillation Father Diabetes type II Father Hypertension Father Obesity Father Lupus Sister Alcohol abuse Brother Other Niece Migraines Daughter Other Nephew Autoimmune disease Nephew Sudden Neg Hx Aneurysm Neg Hx Family Status - Relation Status Age at Mother Father Sister Brother Niece Alive Daughter Alive Daughter Alive Nephew Alive Neg HxNormalUniversCleveland Clinic [facility]inte Hospital Onlyon 04-30-6194Woicaz [id number] Ruma Carlton 1960 F Date Provider Department Center 12/01/2024 [id number], HISTORICAL CARD [facility] Family History Problem Relation Age of Onset Breast cancer Mother 65 Cancer Mother Depression Mother Anemia Father Atrial fibrillation Father Diabetes type II Father Hypertension Father Obesity Father Lupus Sister Alcohol abuse Brother Other Niece Migraines Daughter Other Nephew Autoimmune disease Nephew Sudden Neg Hx Aneurysm Neg Hx Family Status - Relation Status Age at Mother Father Sister Brother Niece Alive Daughter Alive Daughter Alive Nephew Alive Neg HxNormalUniversWayne HealthCare Main Campus36on 97-07-063241Jbryoehft lab results from 10/12/2024: MD Stacy Rodriguez MA She has CKD - she should be seeing a mechanist. Thanks. Spoke with patient and she agrees to nephrology referral, as she currently does not see one. Referral sent to [facility] HospitalCholesterol in LDL Calc [Mass/Vol]Ordered By: Darryl Pedraza on 59-09-6470Efbnjlkzalw in LDL [Mass/Vol]60.0 mg/dLFirelands Regional Medical Center South CampusComment on above:<100 mg/dl BMTKHYY810-579 mg/dl NEAR OR ABOVE WFUWVSB142- 159 mg/dl BORDERLINE JAHG833-391 mg/dl HIGH>190 mg/dl VERY HIGHCholesterol in VLDL Calc [Mass/Vol]Ordered By: Darryl Pedraza on 35-20-2274Wjtgmnlicbf in VLDL [Mass/Vol]25.4 mg/dLFirelands Regional Medical Center South CampusGlobulin Calc (S) [Mass/Vol]Ordered By: Darryl Pedraza on 43-60-5709Lyoxxbjf (S) [Mass/Vol]3.9 g/dLFirelands Regional Medical Center South CampusGlomerular filtration rate (GFR) estimation in non- AmericanOrdered By: Darryl Pedraza on 88-42-2743PUI/1.73 sq M.predicted among non-blacks MDRD (S/P/Bld) [Vol rate/Area]35 mL/min/{1.73_m2} Low>=60 mL/min/1.73m 2FTwin City HospitalLaboratory - Chemistry and Chemistry - challengeOrdered By: Darryl Pedraza on 69-74-2636Qgcqnbv [Mass/Vol]3.7 g/dL3.4-5.0[facility] CampusALP [Catalytic activity/Vol]128 U/MWeeq03-982LjweklqsgFirelands Regional Medical Center South CampusALT [Catalytic activity/Vol]27 U/N75-80ZzwimclqeFirelands Regional Medical Center South CampusAST [Catalytic activity/Vol]27 U/U77-40QmgvvrobjFirelands Regional Medical Center South CampusBilirubin [Mass/Vol]0.5 mg/dL0.2-1.0[facility] CampusCalcium [Mass/Vol]9.2 mg/dL 8.5-10.1FTwin City HospitalChloride [Moles/Vol]104 mmol/L98-107 [facility] CampusCholesterol [Mass/Vol]148 mg/dL<=200Fire[facility] CampusCholesterol in HDL [Mass/Vol]63 mg/qBYtgt28-65HwcpaxvkgFirelands Regional Medical Center South CampusComment on above:> or =60 mg/dl - LOW CARDIOVASCULAR RISK<40 mg/dl - HIGH CARDIOVASCULAR RISKCO2 [Moles/Vol]28.7 mmol/L21.0-32.0 [facility] CampusCreatinine [Mass/Vol]1.51 mg/dLHigh0.55-1.02 [facility] CampusGFR/1.73 sq M.predicted MDRD (S/P/Bld) [Vol rate/Area]42 mL/min/{1.73_m2}Low>=60 mL/min/1.73m 2FTwin City HospitalGlucose [Mass/Vol]172 mg/sSJbub19-097CsurksypiFirelands Regional Medical Center South Campus Potassium [Moles/Vol]3.6 mmol/L3.5-5.1FTwin City HospitalProtein [Mass/Vol]7.6 g/dL6.4-8.2FOhioHealth Shelby Hospitalodium [Moles/Vol]145 mmol/A588-182ClzurbwbhFirelands Regional Medical Center South CampusTriglyceride [Mass/Vol]127 mg/dL <=150Fire[facility] South CampusUrea nitrogen [Mass/Vol]18.0 mg/dL7.0-18.0 [facility] South CampusUrea nitrogen/Creatinine [Mass ratio]11.9 mg/mg Avita Health Systemerum or plasma albumin/globulin mass ratio Ordered By: Darryl Pedraza on 87-12-5400Czlthjq/Globulin [Mass ratio]0.9 {ratio} Avita Health Systemerum or plasma anion gap determinationOrdered By: Darryl Pedraza on 37-54-2873Nzxom gap [Moles/Vol]15.9 mmol/LFOhioHealth Shelby Hospitalerum or plasma total cholesterol/high density lipoprotein (HDL) cholesterol mass ratOrdered By: Darryl Pedraza on 10-12-2024 Cholesterol.total/Cholesterol in HDL [Mass ratio]2.3 {ratio}[facility] CampusComment on above:3.3 - 4.4 LOW RISK4.4 - 7.1 AVERAGE RISK7.1 - 11.0 MODERATE RISK>11.0 HIGH RISKOffice Visiton 42-72-4781Vctbzg-up visit [id number] Ruma Carlton 1960 F Date Provider Department Center 08/31/2024 KONRAD MACDONALD CARD [facility] Family History Problem Relation Age of Onset Breast cancer Mother 65 Cancer Mother Depression Mother Anemia Father Atrial fibrillation Father Diabetes type II Father Hypertension Father Obesity Father Lupus Sister Alcohol abuse Brother Other Niece Migraines Daughter Other Nephew Autoimmune disease Nephew Sudden Neg Hx Aneurysm Neg Hx Family Status - Relation Status Age at Mother Father Sister Brother Niece Alive Daughter Alive Daughter Alive Nephew Alive Neg Hx Level of Service:52353 ID OFFICE/OUTPATIENT ESTABLISHED LOW [facility]DM [facility]Office Visiton 06-14-6917Cupjpz-up visit [id number] Ruma Carlton 1960 F Date Provider Department Center 08/04/2024 Frank-AL JOHNSON SREEDHAR [facility] Family History Problem Relation Age of Onset Breast cancer Mother 65 Cancer Mother Depression Mother Anemia Father Atrial fibrillation Father Diabetes type II Father Hypertension Father Obesity Father Lupus Sister Alcohol abuse Brother Other Niece Migraines Daughter Other Nephew Autoimmune disease Nephew Sudden Neg Hx Aneurysm Neg Hx Family Status - Relation Status Age at Mother Father Sister Brother Niece Alive Daughter Alive Daughter Alive Nephew Alive Neg Hx Level of Service:15620 ID OFFICE/OUTPATIENT ESTABLISHED HIGH MDM 40 [facility] HospitalANESon 62-95-1146HHFA Attestation signed by Marcello Wagner MD at 07/21/2024 12:15 PM I have spoken with and examined Ms. Carlton and agree with Dr. Mann's exam. She has intact R femoral, popliteal and DP pulses. She understands risks and consents to proceed. Patient: Ruma Carlton Procedure Information Date/Time: 07/21/24 1145 Procedures: Coronary angiography (Left) - PC PENDING Right heart cath Location: [facility]LE[facility] 3 / [facility] (Cath) Providers: Marcello Wagner MD Clinical information reviewed: Tobacco Allergies Meds Med Hx Surg Hx Fam Hx Soc Hx Physical Exam Airway Mallampati: II TM distance: <3 FB Cardiovascular Rhythm: regular Rate: normal Dental Pulmonary Abdominal Anesthesia Plan ASA 3 other (Conscious ) Anesthetic plan and risks discussed with patient. Use of blood products discussed with patient who consented to blood products. Plan discussed with attending. Additional Equipment RequestsNormalUniversity of Ut Health North Campus TylerHPon 31-95-9714MTDihxakg Of Present Illness Ruma Carlton is a 63 y.o. female presenting with Leg Swelling Shortness of Breath Congestive Heart Failure Coronary Artery Disease Past Medical History She has a past medical history of Abnormal ECG, Arrhythmia, Atrial fibrillation (CMS/HCC), CHF (congestive heart failure) (CMS/HCC), Coronary artery disease, Diabetes mellitus (CMS/HCC) (approx 2019), Disease of thyroid gland (august 2023), Hyperlipidemia, Hypertension (unknown, ok now), and Pulmonary embolism (CMS/HCC). Surgical History She has a past surgical history that includes Hand surgery (02/2022); Cardiac catheterization (mid ); and Coronary artery bypass graft. Social History She reports that she has quit smoking. Her smoking use included cigarettes. She has a 40 pack-year smoking history. She has never used smokeless tobacco. She reports current alcohol use. She reports that she does not currently use drugs after having used the following drugs: Marijuana. Allergies Codeine, Metoclopramide hcl, and Sulfa (sulfonamide antibiotics) Medications Medications Prior to Admission Medication Sig Dispense Refill Last Dose amiodarone (Pacerone) 200 mg tablet Take 2 tablets (400 mg) by mouth two times daily for 14 days, THEN 1 tablet (200 mg) in the morning. 146 tablet 0 07/21/2024 aspirin 81 mg EC tablet Take 81 mg by mouth in the morning. 07/21/2024 dapagliflozin propanediol (Farxiga) 10 mg Take 1 tablet (10 mg) by mouth once daily as directed. 90 tablet 3 07/21/2024 furosemide (Lasix) 40 mg tablet Take 1 tablet (40 mg) by mouth before breakfast. (Patient taking differently: Take 40 mg by mouth two times daily.) 90 tablet 3 07/20/2024 lamoTRIgine (LaMICtal) 200 mg tablet Take 1 tablet by mouth in the evening. 07/20/2024 levothyroxine (Synthroid, Levoxyl) 50 mcg tablet Take 50 mcg by mouth before breakfast. 07/21/2024 magnesium oxide (Mag-Ox) 400 mg tablet Take 400 mg by mouth two times daily. 07/20/2024 metoprolol succinate XL (Toprol-XL) 25 mg 24 hr tablet Take 1 tablet (25 mg) by mouth once daily as directed. Do not crush or chew. 90 tablet 3 07/21/2024 pyridostigmine (Mestinon) 60 mg tablet Take 2 tablets (120 mg) by mouth in the morning, at noon, in the evening, and at bedtime. 720 tablet 3 07/21/2024 rivaroxaban (Xarelto) 20 mg tablet Take 20 mg by mouth once daily as directed. Past Week rosuvastatin (Crestor) 20 mg tablet Take 1 tablet (20 mg) by mouth in the morning. 30 tablet 11 07/21/2024 sacubitril-valsartan (Entresto) 24-26 mg tablet Take 0.5 tablets by mouth two times daily. 90 tablet 3 07/21/2024 spironolactone (Aldactone) 25 mg tablet Take 1 tablet (25 mg) by mouth in the morning. (Patient taking differently: Take 12.5 mg by mouth in the morning.) 90 tablet 3 07/20/2024 venlafaxine XR (Effoxor-XR) 150 mg 24 hr capsule Take 2 capsules by mouth in the morning. 07/21/2024 fluticasone furoate-vilanteroL (Breo Ellipta) 100-25 mcg/dose inhaler Inhale in the morning. mirtazapine (Remeron) 15 mg tablet Pt not taking ondansetron (Zofran) 4 mg tablet Take 8 mg by mouth every 8 (eight) hours if needed. Review of Systems Cardiovascular: Positive for dyspnea on exertion, leg swelling (L > R) and palpitations (with exertion). Respiratory: Positive for cough. Musculoskeletal: Positive for muscle weakness. Neurological: Positive for excessive daytime sleepiness. All other systems reviewed and are negative. Physical Exam Constitutional: Appearance: Normal appearance. She is obese. HENT: Head: Normocephalic and atraumatic. Right Ear: External ear normal. Left Ear: External ear normal. Eyes: Extraocular Movements: Extraocular movements intact. Conjunctiva/sclera: Conjunctivae normal. Pupils: Pupils are equal, round, and reactive to light. Neck: Vascular: No carotid bruit. Cardiovascular: Rate and Rhythm: Normal rate and regular rhythm. Pulses: Normal pulses. Heart sounds: Normal heart sounds. Pulmonary: Effort: Pulmonary effort is normal. Breath sounds: Normal breath sounds. Abdominal: General: Bowel sounds are normal. Palpations: Abdomen is soft. Musculoskeletal: Cervical back: Neck supple. Right lower leg: Edema present. Left lower leg: Edema present. Skin: General: Skin is warm and dry. Last Recorded Vitals Blood pressure 135/78, pulse 77, resp. rate 15, SpO2 98%. Relevant Results Left Ventricle: The left ventricle is normal [...] The right atrium is mildly enlarged. Overall (more content not included)...NormalUnWestern Reserve HospitalNURSNOTEon [phone] ambulated to bathroom. Gait steady. Right groin cath site without bleeding or hematomaNormalUniversWayne HealthCare Main CampusNURSNOTEDr. Wagner assessed patient and site. Told her she could be discharged home at 6:30pmNormBarberton Citizens HospitalJANETH educated pt on d/c instructions. This included: site care, limited physical activity, resume normal diet, future appointments, medications, and moderate sedation instructions. RN educated pt on when to notify physician and when to go to the hospital. RN educated pt on importance of not overusing stairs at this time and limited weight bearing of 5lbs. RN encouraged pt to voice any questions or concerns, and answered any questions or concerns if pt verbalized. Pt was wheeled off of unit with all of belongings.[facility] HospitalOrders Onlyon [phone] [id number] Brandt,Ruma K 1960 Date Provider Department Center 07/13/2024 166-DARRYL PEDRAZA CARDIOLOGY None Family History Problem Relation Age of Onset Breast cancer Mother 65 Cancer Mother Depression Mother Anemia Father Atrial fibrillation Father Diabetes type II Father Hypertension Father Obesity Father Lupus Sister Alcohol abuse Brother Other Niece Migraines Daughter Other Nephew Autoimmune disease Nephew Sudden Neg Hx Aneurysm Neg Hx Family Status - Relation Status Age at Mother Father Sister Brother Niece Alive Daughter Alive Daughter Alive Nephew Alive Neg HxNormalUniJ.W. Ruby Memorial Hospital36on [phone] Francie Pedraza CNP - patient needs scheduled for heart cath with Dr. Johnson s/p abnormal stress test performed on 07/01/2024. Patient made aware. Orders entered.[facility] HospitalOrders Onlyon [id number] [id number] BrandtRuma K 1960 Date Provider Department Center 07/06/2024 dArián8-STACY BRADY SREEDHAR [facility] Family History Problem Relation Age of Onset Breast cancer Mother 65 Cancer Mother Depression Mother Anemia Father Atrial fibrillation Father Diabetes type II Father Hypertension Father Obesity Father Lupus Sister Alcohol abuse Brother Other Niece Migraines Daughter Other Nephew Autoimmune disease Nephew Sudden Neg Hx Aneurysm Neg Hx Family Status - Relation Status Age at Mother Father Sister Brother Niece Alive Daughter Alive Daughter Alive Nephew Alive Neg HxNormalUniversWayne HealthCare Main CampusOffice Visiton [phone]- up [id number] Ruma Carlton 1960 F Date Provider Department Center 06/29/2024 KONRAD MACDONALD SREEDHAR [place] Family History Problem Relation Age of Onset Breast cancer Mother 65 Cancer Mother Depression Mother Anemia Father Atrial fibrillation Father Diabetes type II Father Hypertension Father Obesity Father Lupus Sister Alcohol abuse Brother Other Niece Migraines Daughter Other Nephew Autoimmune disease Nephew Sudden Neg Hx Aneurysm Neg Hx Family Status - Relation Status Age at Mother Father Sister Brother Niece Alive Daughter Alive Daughter Alive Nephew Alive Neg Hx Level of Service:86649 ID OFFICE/OUTPATIENT NEW MODERATE MDM 45 MINUTESNormal [facility]36on [id number] to patient and advised her that Francie Milo would like her to increase her spirolactone to 12.5 and have a BMP done in 1 month. Patient verbalized understanding.[facility]36on [phone] Tucker, FILM PRODUCER P Cardiology Clinical Support Pool Her labs show a slight bump in her kidney function. Would like her to go back to spironolactone 12.5mg daily. Follow up BMP in 1 month. Thank you Left message for patient to call back.[facility] 36on [id number], lets order for a lexiscan stress test please. Please remind her to get follow up BMP since we increased her aldactone. Thank [facility]37on *We are increasing spironolactone to 25mg daily *Have lab work done around 06/02/2024 to check kidney function with the increase in spironolactone. *We will call you in 1-2 weeks to see how you are feeling. *Follow-up after event monitor comes off.[facility] HospitalOffice Visiton [phone]-up [id number] Ruma Carlton 1960 F Date Provider Department Center 05/26/2024 DARRYL BRAUN Family History Problem Relation Age of Onset Breast cancer Mother 65 Cancer Mother Depression Mother Anemia Father Atrial fibrillation Father Diabetes type II Father Hypertension Father Obesity Father Lupus Sister Alcohol abuse Brother Other Niece Migraines Daughter Other Nephew Autoimmune disease Nephew Sudden Neg Hx Aneurysm Neg Hx Family Status - Relation Status Age at Mother Father Sister Brother Niece Alive Daughter Alive Daughter Alive Nephew Alive Neg Hx Level of Service:68141 ID OFFICE/OUTPATIENT ESTABLISHED MOD MDM 30 MIN Reason for Visit and Comments: Leg Swelling [] Shortness of Breath [] Congestive Heart Failure [127] Coronary Artery Disease [187]NormalUnWestern Reserve Hospital37on *Have lab work done today. *If labs look okay, we will let you know to increase lasix to 40mg twice daily for 1 week. *We switched atorvastatin to rosuvastatin 20mg daily. We will plan to get follow-up labs in 2 months to follow-up on cholesterol levels and liver function.NormalWood County HospitalEstimated glomerular filtration rate (GFR) non- Americanon [id number]/1.73 sq M.predicted among non-blacks MDRD (S/P/Bld) [Vol rate/Area]Estimated glomerular filtration rate (GFR) non- AmericanLow>=60 mL/min/1.73m 2FTwin City HospitalLaboratory - Chemistry and Chemistry - challengeon [id number] [Mass/Vol]9.4 mg/dL8.5-10.1FTwin City HospitalChloride [Moles/Vol] 102 mmol/W33-646KqqqzmxahFirelands Regional Medical Center South CampusCO2 [Moles/Vol]30.4 mmol/L 21.0-32.0Firelands [facility] South CampusCreatinine [Mass/Vol]1.12 mg/dLHigh 0.55-1.02Firelands Regional Medical Center South CampusGFR/1.73 sq M.predicted MDRD (S/P/Bld) [Vol rate/Area]60 mL/min/{1.73_m2}>=60 mL/min/1.[address]m [address] [place], [place] [address]Glucose [Mass/Vol]158 mg/dYUtcj33-695RflwvahiiFirelands Regional Medical Center South Campus Potassium [Moles/Vol]3.8 mmol/L3.5-5.1FOhioHealth Shelby Hospitalodium [Moles/Vol]140 mmol/R455-260GofiakpbjFirelands Regional Medical Center South CampusUrea nitrogen [Mass/Vol]22.0 mg/dLHigh7.0-18.0Fire[facility] Center South CampusUrea nitrogen/Creatinine [Mass ratio]19.6 mg/mgFirelands Regional Medical Center South Campus Office Visiton [phone]-up [id number] Ruma Carlton Mu 1960 Date Provider Department Center 05/20/2024 DARRYL BRAUN Hos Family History Problem Relation Age of Onset Breast cancer Mother 65 Cancer Mother Depression Mother Anemia Father Atrial fibrillation Father Diabetes type II Father Hypertension Father Obesity Father Lupus Sister Alcohol abuse Brother Other Niece Migraines Daughter Other Nephew Autoimmune disease Nephew Sudden Neg Hx Aneurysm Neg Hx Family Status - Relation Status Age at Mother Father Sister Brother Niece Alive Daughter Alive Daughter Alive Nephew Alive Neg Hx Level of Service:65007 ID OFFICE/OUTPATIENT ESTABLISHED MOD MDM 30 MIN Reason for Visit and Comments: Hospital Follow-up [832] Congestive Heart Failure [127][facility] Westerum or plasma anion gap determinationon [id number] gap [Moles/Vol]Serum or plasma anion gap determinationFirelands Regional Medical Center South CampusTelephoneon 05-18-2024 [id number] Ruma Carlton Mu 1960 Provider Department Center 05/18/2024 CELESTINA BOLAÑOS [facility] RI HeartVAS Family History Problem Relation Age of Onset Breast cancer Mother 65 Cancer Mother Depression Mother Anemia Father Atrial fibrillation Father Diabetes type II Father Hypertension Father Obesity Father Lupus Sister Alcohol abuse Brother Other Niece Migraines Daughter Other Nephew Autoimmune disease Nephew Sudden Neg Hx Aneurysm Neg Hx Family Status - Relation Status Age at Mother Father Sister Brother Niece Alive Daughter Alive Daughter Alive Nephew Alive Neg Hx Reason for Visit and Comments: HF post discharge call. [Other][facility] Documentationon [id number] Ruma Carlton Mu 1960 Date Provider Department Center 05/17/2024 [id number]-JYJGBSXCELESTINA FONG [facility] HeartVAS Family History Problem Relation Age of Onset Breast cancer Mother 65 Cancer Mother Depression Mother Anemia Father Atrial fibrillation Father Diabetes type II Father Hypertension Father Obesity Father Lupus Sister Alcohol abuse Brother Other Niece Migraines Daughter Other Nephew Autoimmune disease Nephew Sudden Neg Hx Aneurysm Neg Hx Family Status - Relation Status Age at Mother Father Sister Brother Niece Alive Daughter Alive Daughter Alive Nephew Alive Neg Hx Reason for Visit and Comments: HF inpatient satisfaction survey sent. [Other][facility] HospitalTelephoneon [id number] Ruma Carlton 1960 F Date Provider Department Center 05/17/2024 [id number], CELESTINA [facility] [place] HeartVAS Family History Problem Relation Age of Onset Breast cancer Mother 65 Cancer Mother Depression Mother Anemia Father Atrial fibrillation Father Diabetes type II Father Hypertension Father Obesity Father Lupus Sister Alcohol abuse Brother Other Niece Migraines Daughter Other Nephew Autoimmune disease Nephew Sudden Neg Hx Aneurysm Neg Hx Family Status - Relation Status Age at Mother Father Sister Brother Niece Alive Daughter Alive Daughter Alive Nephew Alive Neg Hx Reason for Visit and Comments: HF post discharge call. [Other][facility]36on [phone] Discharge Call Good afternoon, I am Sudha De La Paz, RN a lead nurse from [facility]. I am calling you to follow up on your stay with us and make sure all of your questions have been answered. You will be receiving a survey either electronic or via mail and we always aim to receive 9???s and 10???s. If there is any reason you feel as though you cannot give us these scores please indicate that now. 1. How have you been feeling since being discharged from the hospital? I'm doing fine. You guys have an amazing nursing staff. I just want you to know. 2. Did you understand your discharge instructions when they were given to prior to leaving? Yes Were you given an opportunity to ask questions? Yes 3. While a patient in the hospital, was your call light answered in a timely manner? Yes 4. Do have access to all medications that were prescribed to you at discharge? Yes 5. How would you rate your overall stay on a scale of 0-10, 10 being the best experience you have ever had. 10 6. Do you have any further questions you would like to discuss? No Patient Name Ruma Carlton Date 05/15/24NormalUniJ.W. Ruby Memorial HospitalTephoneon 05-15-2024 [id number] Ruma Carlton 1960 F Date Provider Department Center 05/15/2024 SUDHA THOMPSON [facility] Medical C Family History Problem Relation Age of Onset Breast cancer Mother 65 Cancer Mother Depression Mother Anemia Father Atrial fibrillation Father Diabetes type II Father Hypertension Father Obesity Father Lupus Sister Alcohol abuse Brother Other Niece Migraines Daughter Other Nephew Autoimmune disease Nephew Sudden Neg Hx Aneurysm Neg Hx Family Status - Relation Status Age at Mother Father Sister Brother Niece Alive Daughter Alive Daughter Alive Nephew Alive Neg Hx Reason for Visit and Comments: post discharge call backs [Other][facility]30on [id number] Case Management Update Multidisciplinary rounds have been completed. Barriers to Discharge: Patient is medically ready for hospital discharge at this time. AVS has been completed, and primary RN has been notified of patients discharge readiness. Patient will discharge to home, and family will provide patients transportation. No further OTM needs identified at this time. [facility] will continue to follow patient and assist with any further discharge related needs. Diet: Dietary Orders (From admission, onward) Start Ordered 05/12/24 1310 Regular Diet Heart Healthy/HTN, CABG,Stroke, (2gNA, low fat, low cholesterol) Diet effective now Question Answer Comment Room Service? Yes Fat restriction: Heart Healthy/HTN, CABG,Stroke, (2gNA, low fat, low cholesterol) 05/12/24 1309 Physician Expected Discharge Date: 05/14/2024 Discharge Delays: PT Six Click Score: 18 OT Six Click Score: PT Recommendations: OT Recommendations: Does patient understand post acute plan of care? Yes Is expected discharge disposition appropriate for patient?: Yes New Consults: Ancillary Consults (From admission, onward) Start Ordered 05/11/24 2221 Inpatient consult to Social Work Once Provider: (Not yet assigned) Question Answer Comment Select all services needed for the patient Home Health Types of Home Health Service needed Long-Term Types of Home Health Service needed Physical Therapy Please indicate your approval for this care by adding your name here: KENDELL GALLARDO 05/11/[address] [facility]30The patient is Moderately Stable - Low risk of patient condition declining or worsening The patient's goals for the shift include rest, comfort, sleep The clinical goals for the shift include vss, comfort, rest Problem: Pain - Adult Goal: Verbalizes/displays adequate comfort level or baseline comfort level Outcome: Progressing Flowsheets (Taken 05/14/2024743) Verbalizes/displays adequate comfort level or baseline comfort level: Encourage patient to monitor pain and request assistance Assess pain using appropriate pain scale Administer analgesics based on type and severity of pain and evaluate response Implement non-pharmacological measures as appropriate and evaluate response Consider cultural and social influences on pain and pain management Notify Licensed Independent Practitioner if interventions unsuccessful or patient reports new pain Problem: Safety - Adult Goal: Free from fall injury Outcome: Progressing Flowsheets (Taken 05/14/2024743) Free from fall injury: Assess patient frequently for physical needs Identify cognitive and physical deficits and behaviors that affect risk of falls [place]stone fall precautions as indicated by assessment Educate patient/family on patient safety, including physical limitations Instruct patient to call for assistance with activity based on assessment Consider OT/PT consult to assist with strengthening/mobility Modify environment to reduce risk of injury Problem: Discharge Planning Goal: Discharge to home or other facility with appropriate resources Outcome: Progressing Flowsheets (Taken 05/14/2024743) Discharge to home or other facility with appropriate resources: Identify barriers to discharge with patient and caregiver Arrange for needed discharge resources and transportation as appropriate Identify discharge learning needs (meds, wound care, etc) Arrange for interpreters to assist at discharge as needed Refer to discharge planning if patient needs post-hospital services based on physician order or complex needs related to functional status, cognitive ability or social support system Problem: Chronic Conditions and Co-morbidities Goal: Patient's chronic conditions and co-morbidity symptoms are monitored and maintained or improved Outcome: Progressing Flowsheets (Taken 05/14/2024743) Care Plan - Patient's Chronic Conditions and Co-Morbidity Symptoms are Monitored and Maintained or Improved: Collaborate with multidisciplinary team to address chronic and comorbid conditions and prevent exacerbation or deterioration Update acute care plan with appropriate goals if chronic or comorbid symptoms are exacerbated and prevent overall improvement and discharge Monitor and assess patient's chronic conditions and comorbid symptoms for stability, deterioration, or improvementNormalUniversWayne HealthCare Main CampusBASIC METABOLIC PANELon 00-31-1127Bqphm gap [Moles/Vol]14 mmol/LNormal7-20 [facility] HospitalComment on above:Performed By: #### [id number] ####[facility] ([facility])[address] [place], [place] [address]Mouvvky [Mass/Vol]9.5 mg/dLNormal8.6-10.3UnWestern Reserve HospitalComment on above:Performed By: #### [id number] ####[facility] ([facility])[address] [place], [place] [address]Hvbgfmpi [Moles/Vol]104 mmol/KKnbtaa00-190BvzfevdwbuWestern Reserve HospitalComment on above:Performed By: #### LAB15 ####[facility] ([facility])[address] [place], [place] [address]YF5 [Moles/Vol]23 mmol/LNormal 21-31UnWestern Reserve HospitalComment on above:Performed By: #### [id number] ####[facility] ([facility])[address] [place], [place] [address]Hhlgevesso [Mass/Vol]1.04 mg/dLNormal0.60-1.20UnWestern Reserve HospitalComment on above:Performed By: #### [id number] ####[facility] ([facility])[address] [place], [place] [address]QMRPZXWCDF FILTRATION RATE ML/MIN/1.73 SQ M.IARSJJGIH52.8 mL/min/1.73m*2Normal>60.0UnWestern Reserve HospitalComment on above: Result Comment: [facility]???s estimated glomerular filtration rate (eGFR) will [...] potential consequences that do not disproportionately affect anyone group of individuals.Performed By: #### [id number] ####[facility] ([facility])[address] [place] [address]Yhdimxd [Mass/Vol]128 mg/zVZwqf99-711GbiqqmmtqdWestern Reserve HospitalComment on above:Performed By: #### [id number] ####[facility] ([facility])[address] [place] [address]Ckdlpyjdh [Moles/Vol]4.5 mmol/L Normal3.5-5.1UnWestern Reserve HospitalComment on above:Performed By: #### [id number] ####[facility] ([facility])[address] [place], [place] [address] Sodium [Moles/Vol]136 mmol/MMfabxm527-260KknrgkgnunWestern Reserve Hospital Comment on above:Performed By: #### [id number] ####[facility] ([facility])[address] [place], [place] [address]Dpap nitrogen [Mass/Vol]23 mg/dLNormal7-25 [facility] HospitalComment on above:Performed By: #### [id number] ####[facility] ([facility])[address] [place], [place] [address]UEYW NITROGEN/CREATININE (MASS RATIO) IN SER/PLAS22.1NormalUnWestern Reserve HospitalComment on above:Performed By: #### [id number] ####[facility] ([facility])[address] [place] [address]CHZca 52-28-8409Ymqajujayej distribution width (RBC) [Ratio]14.3 %Qwtnae46.5-15.0UnWestern Reserve HospitalComment on above:Performed By: #### [id number] ####[facility] ([facility])[address] [place], [place] [address]LJDMFDZWHTA MEAN CORPUSCULAR HEMOGLOBIN CONCENTRATION (G/DL) BY KSQFJPAAE62.9 g/dLLow32.0-35.0UnWestern Reserve HospitalComment on above:Performed By: #### [id number] ####[facility] ([facility])[address] [place] [address]Jashibjbzd (Bld) [Volume fraction]45.8 %Xvfone09.0-48.0UnWestern Reserve HospitalComment on above:Performed By: #### [id number] ####[facility] ([facility])[address] [place] [address]Eaopdubnze (Bld) [Mass/Vol]14.6 g/hCVrmaop61.0-15.0UnWestern Reserve HospitalComment on above:Performed By: #### [id number] ####[facility] ([facility])[address] [place] [address]YCX (RBC) [Entitic mass] 29.1 fjQoexgm61.0-33.0UnWestern Reserve HospitalComment on above: Performed By: #### [id number] ####[facility] ([facility])[address] [place] [address]EAZ (RBC) [Entitic vol]91.4 cZGfyjqj30.0-98.0UnWestern Reserve HospitalComment on above:Performed By: #### [id number] ####[facility] ([facility])[address] [place] [address]XZFWGIUOM (10*3/UL) IN BLOOD AUTOMATED XFDIK420 10*3/oTOjgufu652-780DphajigauyWestern Reserve Hospital Comment on above:Performed By: #### [id number] ####[facility] ([facility])[address] [place] [address]UVM (Bld) [#/Vol]5.01 10*6/uLHigh3.80-5.00 [facility] HospitalComment on above:Performed By: #### [id number] ####[facility] ([facility])[address] [place] [address]ABT (Bld) [#/Vol]6.81 10*3/uLNormal4.00-10.60UnWestern Reserve HospitalComment on above:Performed By: #### [id number] ####[facility] ([facility])[address] [place] [address]EZJP GLUCOSE METER UNSOLICITED RESULTSon 48-11-1974Uknppaz [Mass/Vol]206 mg/lBLcbw38-356HolsgabqlrWood County HospitalComment on above:Order Comment: Waived Testing in the ED is performed under the ED CLIA certificate #[id number].Result Comment: dcundicPerformed By: #### [id number] #### [facility] ([facility]) [address] [place] [address]Pefqiir [Mass/Vol]146 mg/mRWwaw09-322VeelajipzlWestern Reserve HospitalComment on above:Order Comment: Waived Testing in the ED is performed under the ED CLIA certificate #[id number].Result Comment: [email or web address] Performed By: #### [id number] #### [facility] ([facility]) [address] [place] [address]63nt 98-82-161672Goe patient is Moderately Stable - Low risk of patient condition declining or worsening The patient's goals for the shift include rest, comfort, sleep The clinical goals for the shift include vss, comfort, rest Over the shift, the patient did not make progress toward the following goals. Barriers to progression include diuresing and ambulation. Recommendations to address these barriers include making changes to the treatment plan as needed. Problem: Pain - Adult Goal: Verbalizes/displays adequate comfort level or baseline comfort level Outcome: Progressing Flowsheets (Taken 05/13/20242350) Verbalizes/displays adequate comfort level or baseline comfort level: Encourage patient to monitor pain and request assistance Assess pain using appropriate pain scale Administer analgesics based on type and severity of pain and evaluate response Implement non-pharmacological measures as appropriate and evaluate response Consider cultural and social influences on pain and pain management Problem: Safety - Adult Goal: Free from fall injury Outcome: Progressing Flowsheets (Taken 05/13/20242350) Free from fall injury: Assess patient frequently for physical needs Identify cognitive and physical deficits and behaviors that affect risk of falls Educate patient/family on patient safety, including physical limitations Sandstone fall precautions as indicated by assessment Instruct patient to call for assistance with activity based on assessment Modify environment to reduce risk of injury Consider OT/PT consult to assist with strengthening/mobility Problem: Discharge Planning Goal: Discharge to home or other facility with appropriate resources Outcome: Progressing Flowsheets (Taken 05/13/2024 2351) Discharge to home or other facility with appropriate resources: Identify barriers to discharge with patient and caregiver Arrange for needed discharge resources and transportation as appropriate Identify discharge learning needs (meds, wound care, etc) Problem: Chronic Conditions and Co-morbidities Goal: Patient's chronic conditions and co-morbidity symptoms are monitored and maintained or improved Outcome: Progressing Flowsheets (Taken 05/13/2024 2351) Care Plan - Patient's Chronic Conditions and Co-Morbidity Symptoms are Monitored and Maintained or Improved: Monitor and assess patient's chronic conditions and comorbid symptoms for stability, deterioration, or improvement Collaborate with multidisciplinary team to address chronic and comorbid conditions and prevent exacerbation or deteriorationNoMercy Health Willard Hospital30Daily Case Management Update Multidisciplinary rounds have been completed. Barriers to Discharge: Diurese Lasix IV q12hr, Optimize medications, Hep gtt has been transitioned to Xarelto(on 05/12), Monitor/Replace elytes: Na 137<134, *K 3.5, Creatine up today: 1.29<0.98 Dc Plan : Return Home/no needs, No therapy ordered at this time. Diet: Dietary Orders (From admission, onward) Start Ordered 05/12/24 1310 Regular Diet Heart Healthy/HTN, CABG,Stroke, (2gNA, low fat, low cholesterol) Diet effective now Question Answer Comment Room Service? Yes Fat restriction: Heart Healthy/HTN, CABG,Stroke, (2gNA, low fat, low cholesterol) 05/12/24 1309 Physician Expected Discharge Date: 05/14/2024 Discharge Delays: PT Six Click Score: 18 OT Six Click Score: PT Recommendations: OT Recommendations: New Consults: Ancillary Consults (From admission, onward) Start Ordered 05/11/24 2221 Inpatient consult to Social Work Once Provider: (Not yet assigned) Question Answer Comment Select all services needed for the patient Home Health Types of Home Health Service needed Long-Term Types of Home Health Service needed Physical Therapy Please indicate your approval for this care by adding your name here: KENDELL GALLARDO [facility]/11/242227[facility]30The patient is Moderately Stable - Low risk of patient condition declining or worsening The patient's goals for the shift include rest and comfort The clinical goals for the shift include vss;comfort;ambulation;rest Over the shift, the patient did make progress toward the following goals. Barriers to progression include n/a. Recommendations to address these barriers include n/a.NormalUnWestern Reserve HospitalBASIC METABOLIC PANELon 27-19-0073Tvyhy gap [Moles/Vol]13 mmol/LNormal7-20UnWestern Reserve HospitalComment on above:Performed By: #### [id number] ####[facility] ([facility])[address] [place] [place], [place] [address]Mlwaoar [Mass/Vol]9.1 mg/dLNormal 8.6-10.3UnWestern Reserve HospitalComment on above:Performed By: #### [id number] ####[facility] ([facility])[address] [place], [place] [address]Eyerpdjq [Moles/Vol]99 mmol/FNdrsir60-027NxmyesybhhWestern Reserve HospitalComment on above:Performed By: #### [id number] ####[facility] ([facility])[address] [place], [place] [address]ZZ8 [Moles/Vol]29 mmol/FFxyghi51-32IadynzajvaWestern Reserve HospitalComment on above:Performed By: #### [id number] ####[facility] ([facility])[address] [place], [place] [address]Fkrmivcjzi [Mass/Vol]1.29 mg/dLHigh 0.60-1.20UnWestern Reserve HospitalComment on above:Performed By: #### [id number] ####[facility] ([facility])[address] [place], [place] [address]RBEYSLTFYP FILTRATION RATE ML/MIN/1.73 SQ M.LPPJYXKPH80.9 mL/min/1.73m*2Low>60.0UnWestern Reserve HospitalComment on above:Result Comment: [facility]???s estimated glomerular filtration rate (eGFR) will [...] potential consequences that do not disproportionately affect anyone group of individuals. Performed By: #### [id number] ####[facility] ([facility])[address] [place], [place] [address]Suoizvi [Mass/Vol]135 mg/tAIcwk92-023XejhrquypwWestern Reserve HospitalComment on above:Performed By: #### [id number] ####[facility] ([facility])[address] [place], [place] [address]Qgcanwsoc [Moles/Vol]3.5 mmol/LNormal 3.5-5.1UnWestern Reserve HospitalComment on above:Performed By: #### [id number] ####[facility] ([facility])[address] [place], [place] [address]Fojptl [Moles/Vol]137 mmol/SBmboyd948-042EksujimyyoWestern Reserve HospitalComment on above:Performed By: #### [id number] ####[facility] ([facility])[address] [place], [place] [address]Kyar nitrogen [Mass/Vol]19 mg/dLNormal7-25UnWestern Reserve HospitalComment on above:Performed By: #### [id number] ####[facility] ([facility])[address] [place], [place] [address]SUXP NITROGEN/CREATININE (MASS RATIO) IN SER/PLAS14.7NormalUniversWayne HealthCare Main CampusComment on above: Performed By: #### [id number] ####[facility] ([facility])[address] [facility] [place] [address]CQMI GLUCOSE METER UNSOLICITED RESULTSon 02-86-2944Jznvbgq [Mass/Vol] 161 mg/gJNkfx47-799SpsmffwcbpWestern Reserve HospitalComment on above:Order Comment: Waived Testing in the ED is performed under the ED CLIA certificate #[id number].Result Comment: [email or web address] By: #### [id number] #### [facility] ([facility]) [address] [place], [place] [address]Shsrxla [Mass/Vol]149 mg/sEEuvo47-039ZohjpificvWood County HospitalComment on above:Order Comment: Waived Testing in the ED is performed under the ED CLIA certificate #[id number].Result Comment: [email or web address] Performed By: #### [id number] #### [facility] ([facility]) [address] [place], [place] [address]Dftdejq [Mass/Vol]183 mg/cTRfen31-285XslzgtccdoWestern Reserve HospitalComment on above:Order Comment: Waived Testing in the ED is performed under the ED CLIA certificate #[id number].Result Comment: [email or web address] Performed By: #### [id number] #### [facility] ([facility]) [address] [place], [place] [address]Qpagals [Mass/Vol]141 mg/iRHpzw52-249EgkxiehuzoWood County HospitalComment on above:Order Comment: Waived Testing in the ED is performed under the ED CLIA certificate #[id number].Result Comment: [email or web address] Performed By: #### [id number] ####[facility] ([facility])[address] [place] [address]ex [id number] patient is Moderately Stable - Low risk of patient condition declining or worsening The patient's goals for the shift include rest and comfort The clinical goals for the shift include VSS, comfort, rest Over the shift, the patient did not make progress toward the following goals. Barriers to progression include diuresing. Recommendations to address these barriers include making changes to the treatment plan as needed. Problem: Pain - Adult Goal: Verbalizes/displays adequate comfort level or baseline comfort level Outcome: Progressing Flowsheets (Taken 05/12/2024 2302) Verbalizes/displays adequate comfort level or baseline comfort level: Encourage patient to monitor pain and request assistance Assess pain using appropriate pain scale Administer analgesics based on type and severity of pain and evaluate response Implement non-pharmacological measures as appropriate and evaluate response Consider cultural and social influences on pain and pain management Problem: Safety - Adult Goal: Free from fall injury Outcome: Progressing Flowsheets (Taken 05/12/2024 2302) Free from fall injury: Assess patient frequently for physical needs Identify cognitive and physical deficits and behaviors that affect risk of falls [place]stone fall precautions as indicated by assessment Educate patient/family on patient safety, including physical limitations Instruct patient to call for assistance with activity based on assessment Modify environment to reduce risk of injury Consider OT/PT consult to assist with strengthening/mobility Problem: Discharge Planning Goal: Discharge to home or other facility with appropriate resources Outcome: Progressing Flowsheets (Taken 05/12/2024 2302) Discharge to home or other facility with appropriate resources: Identify barriers to discharge with patient and caregiver Arrange for needed discharge resources and transportation as appropriate Identify discharge learning needs (meds, wound care, etc) Problem: Chronic Conditions and Co-morbidities Goal: Patient's chronic conditions and co-morbidity symptoms are monitored and maintained or improved Outcome: Progressing Flowsheets (Taken 05/12/2024 2302) Care Plan - Patient's Chronic Conditions and Co-Morbidity Symptoms are Monitored and Maintained or Improved: Monitor and assess patient's chronic conditions and comorbid symptoms for stability, deterioration, or improvement Collaborate with multidisciplinary team to address chronic and comorbid conditions and prevent exacerbation or deteriorationNormalUniJ.W. Ruby Memorial Hospital30Daily Case Management Update Multidisciplinary rounds have been completed. Barriers to Discharge: Transfer from [facility] ER for heart cath. Patient presented with complaint of SOB worsening x1-2 weeks. Workup at [facility] showed indications of acute on chronic diastolic heart failure with fluid overload, elevated BNP (537), elevated and increasing troponin, and ECG showing NSTEMI. On heparin gtt. No therapy ordered at this time. Diet: Dietary Orders (From admission, onward) Start Ordered 05/12/24 1310 Regular Diet Heart Healthy/HTN, CABG,Stroke, (2gNA, low fat, low cholesterol) Diet effective now Question Answer Comment Room Service? Yes Fat restriction: Heart Healthy/HTN, CABG,Stroke, (2gNA, low fat, low cholesterol) 05/12/24 1309 Physician Expected Discharge Date: 05/14/2024 Discharge Delays: PT Six Click Score: OT Six Click Score: PT Recommendations: OT Recommendations: New Consults: Consult Orders (From admission, onward) Start Ordered 05/11/24 2229 Inpatient consult to Cardiology Once Specialty: Cardiology Provider: (Not yet assigned) Question Answer Comment Consulting Group CARDIOLOGY TEAM Reason for Consult? HF, fluid overload, recommended for heart cah per referring hospital ([facility]) Level of Consultation Consultation and Management 05/11/24 2229 Ancillary Consults (From admission, onward) Start Ordered 05/11/24 2221 Inpatient consult to Social Work Once Provider: (Not yet assigned) Question Answer Comment Select all services needed for the patient Home Health Types of Home Health Service needed Long-Term Types of Home Health Service needed Physical Therapy Please indicate your approval for this care by adding your name here: KENDELL GALLARDO 05/11/24 2228NormalUniJ.W. Ruby Memorial Hospital30The patient is Moderately Stable - Low risk of patient condition declining or worsening The patient's goals for the shift include rest and comfort The clinical goals for the shift include vss Over the shift, the patient did make progress toward the following goals. Barriers to progression include n/a. Recommendations to address these barriers include n/a.[facility]30The patient is Moderately Stable - Low risk of patient condition declining or worsening The patient's goals for the shift include rest and comfort The clinical goals for the shift include vss Over the shift, the patient did not make progress toward the following goals. Barriers to progression include heart cath. Recommendations to address these barriers include making changes to the treatment plan as needed. Problem: Pain - Adult Goal: Verbalizes/displays adequate comfort level or baseline comfort level Outcome: Progressing Flowsheets (Taken 05/12/2024 0151) Verbalizes/displays adequate comfort level or baseline comfort level: Encourage patient to monitor pain and request assistance Assess pain using appropriate pain scale Administer analgesics based on type and severity of pain and evaluate response Implement non-pharmacological measures as appropriate and evaluate response Consider cultural and social influences on pain and pain management Problem: Safety - Adult Goal: Free from fall injury Outcome: Progressing Flowsheets (Taken 05/12/2024 015) Free from fall injury: Assess patient frequently for physical needs Identify cognitive and physical deficits and behaviors that affect risk of falls Sandstone fall precautions as indicated by assessment Educate patient/family on patient safety, including physical limitations Instruct patient to call for assistance with activity based on assessment Modify environment to reduce risk of injury Consider OT/PT consult to assist with strengthening/mobility Problem: Discharge Planning Goal: Discharge to home or other facility with appropriate resources Outcome: Progressing Flowsheets (Taken 05/12/2024150) Discharge to home or other facility with appropriate resources: Identify barriers to discharge with patient and caregiver Arrange for needed discharge resources and transportation as appropriate Identify discharge learning needs (meds, wound care, etc) Problem: Chronic Conditions and Co-morbidities Goal: Patient's chronic conditions and co-morbidity symptoms are monitored and maintained or improved Outcome: Progressing Flowsheets (Taken 05/12/2024150) Care Plan - Patient's Chronic Conditions and Co-Morbidity Symptoms are Monitored and Maintained or Improved: Monitor and assess patient's chronic conditions and comorbid symptoms for stability, deterioration, or improvement Collaborate with multidisciplinary team to address chronic and comorbid conditions and prevent exacerbation or deteriorationNormalUniCommunity Memorial Hospital [id number] PARTIAL THROMBOPLASTIN TIME IN PPP BY COAGULATION ASSAY49.3 WmjfxqvBcvw00.0-35.0UnWestern Reserve Hospital Comment on above:Order Comment: Check aPTT every 6 hours while on heparin infusion, or per protocol.Result Comment: Clinical significance of the APTT is questionable in the presence of heparin.Performed By: #### [id number] #### [facility] ([facility]) [address], [place] [address]PRSxy [id number] distribution width (RBC) [Ratio]13.9 %Cclyof45.5-15.0UnWestern Reserve HospitalComment on above:Performed By: #### [id number] #### [facility] ([facility]) [address], [place] [address]EBDDQYMREFW MEAN CORPUSCULAR HEMOGLOBIN CONCENTRATION (G/DL) BY PPZYXPXQP23.5 g/sBQybsvn15.0-35.0UnWestern Reserve HospitalComment on above:Performed By: #### [id number] #### [facility] ([facility]) [address], [place] [address]Nzjncmqnlu (Bld) [Volume fraction]41.8 %Rgaqqe86.0-48.0 [facility] HospitalComment on above:Performed By: #### [id number] #### [facility] ([facility]) [address], [place] [address]Jmbosajucb (Bld) [Mass/Vol]13.6 g/sRNgfszj70.0-15.0UnWestern Reserve HospitalComment on above:Performed By: #### [id number] #### [facility] ([facility]) [address] [place] [address]MRK (RBC) [Entitic mass]28.9 gjUweyls79.0-33.0UnWestern Reserve HospitalComment on above:Performed By: #### [id number] #### [facility] ([facility]) [address] [place], [place] [address]QLQ (RBC) [Entitic vol]88.9 nGHhlzky64.0-98.0UnWestern Reserve HospitalComment on above:Performed By: #### [id number] #### [facility] ([facility]) [address] [place], [place] [address]WCGKITAMZ (10*3/UL) IN BLOOD AUTOMATED TQXOB565 10*3/uLNormal 150-400UnWestern Reserve HospitalComment on above:Performed By: #### [id number] #### [facility] ([facility]) [address] [place], [place] [address]EYD (Bld) [#/Vol]4.70 10*6/uLNormal3.80-5.00UnWestern Reserve HospitalComment on above:Performed By: #### [id number] #### [facility] ([facility]) [address] [facility] [address], [place] [address]YMN (Bld) [#/Vol]6.18 10*3/uLNormal4.00-10.60UnWestern Reserve HospitalComment on above:Performed By: #### [id number] #### [facility] ([facility]) [address] [place], [place] [address]SPZXOXEam 05-67-7922TJVGWZKZeyso Nutrition Assessment: Name: Ruma Carlton Date: 1960 Date of Visit: 05/12/24 Admission Dx: Acute on chronic congestive heart failure, unspecified heart failure type ([facility]) [I50.9] Reason for assessment: MD referral (HF education) Information obtained from: patient, medical record, and nursing Past Medical History: Diagnosis Date Diabetes mellitus ([facility]) approx 2019 Disease of thyroid gland august 2023 Hypertension unknown, ok now CABG x3 November 2023 HF: EF 65-70% POTS Current Medications: aspirin, 81 mg, oral, Daily dapagliflozin propanediol, 10 mg, oral, Daily fluticasone propion-salmeteroL, 2 puff, inhalation, q12h furosemide, 40 mg, intravenous, q12h insulin lispro, 0-5 Units, subcutaneous, TID with meals And insulin lispro, 0-4 Units, subcutaneous, Nightly lamoTRIgine, 200 mg, oral, Daily levothyroxine, 50 mcg, oral, Daily before breakfast magnesium oxide, 400 mg, oral, BID metoprolol succinate XL, 25 mg, oral, Daily pyRIDostigmine, 120 mg, oral, 4x daily rivaroxaban, 20 mg, oral, Daily with evening meal sacubitril-valsartan, 1 tablet, oral, BID SITagliptin phosphate, 100 mg, oral, Daily spironolactone, 12.5 mg, oral, Daily venlafaxine XR, 300 mg, oral, Daily Labs: 0 Lab Value Date/Time POCGLU 152 (H) 05/12/2024 1141 BUN 16 05/11/2024 2303 CREATININE 0.98 05/11/2024 2303 NA 134 (L) 05/11/2024 2303 K 3.8 05/11/2024 2303 PHOS 3.1 05/11/2024 2303 MG 2.2 05/11/2024 2303 HGBA1C 5.8 12/06/2023 0618 HGB 13.6 05/12/2024 0558 WBC 6.18 05/12/2024 0558 CHOL 174 12/05/2023 0937 HDL 48 12/05/2023 0937 BG POC 152-163 BNP 537 Elevated troponin Allergies: Allergies Allergen Reactions Codeine Other Metoclopramide Hcl Other Sulfa (Sulfonamide Antibiotics) Other Nutrition Problems: Swallowing Assessment: Swallow screen 05/11 Mouth: Upper and lower dentures, not present at time of assessment Abdominal Assessment: Last BM 05/10 per pt Appetite: Good Cognition: A/O x4 Feeding Skills: Able to feed self without difficulty Physical Findings: Obese Skin Integrity: Intact Other Factors: 1 L NC, possible heart cath this admit Nutrition Data/Clinical Indicators of Nutrition Status: Height: 154.9 cm (5' 1 ) Weight: 122 kg (270 lb) BMI (Calculated): 51.04 Wt Readings from Last 10 Encounters: 05/11/24 122 kg (270 lb) 02/05/24 117 kg (259 lb) 01/08/24 122 kg (270 lb) 12/30/23 124 kg (273 lb 12.8 oz) 12/03/23 122 kg (268 lb) IBW: 47.7 kg UBW: 258-259 lbs per pt report Weight change: Pt weighs herself daily at home. Reports recent wt gain, likely fluid related. Nutrition Assessment: Pt lives alone but has good access to food at home. Her 2 daughters assist with grocery shopping and meal preparation. She has been trying to follow a low fat diet since her CABG. She consumes 2 meals/day and denies use of ONS at home. She has a history of POTS, therefore does not limit Na intake. She has been trying to stay ~2L/day for fluid consumption per her MD recommendation. Dietary Orders (From admission, onward) Start Ordered 05/12/24 1310 Regular Diet Heart Healthy/HTN, CABG,Stroke, (2gNA, low fat, low cholesterol) Diet effective now Question Answer Comment Room Service? Yes Fat restriction: Heart Healthy/HTN, CABG,Stroke, (2gNA, low fat, low cholesterol) 05/12/24 1309 Nutrition Risk: Low Nutrition Diagnosis: None at this time Malnutrition Assessment: Per Registered Dietitian assessment and evaluation, patient does not currently meet criteria OR there is not enough information to support the diagnosis of malnutrition per the clinical criteria set by the Academy of Nutrition and Dietetics (AND) and the [place] Society of Enteral and Parenteral Nutrition (ASPEN). Nutrition Education: Diet literature: Verbal -Fluid intake per MD recommendations -Daily wt monitoring and reviewed when to notify MD of wt changes -Reviewed signs/symptoms of exacerbation Expected compliance/patient understanding: Good Teach back method: Pt verbalized understanding Time spent: 15 minutes Treatment Plan: Diet: consider liberalization 2/2 POTS dx Daily wt monitoring Medically manage BG Goals: Adequate po intakes (kcals and protein); >75% meals Understanding of nutrition education/adherence to diet recommendations No significant unintentional wt loss BG control To reach the Clinical Dietitian, please utilize [employer] chat Friday-Friday from 8AM-4PM or call extension [phone]. For weekends (Friday-Friday) and hols, the Clinical Dietitian can be reached via pager ([phone]) from 9AM-3PM. The Clinical Nutrition Department is unable to respond to [employer] chat messages on Sundays and s.[facility] HospitalCONSULT Attestation signed by Yash Leija MD at 05/12/2024 6:35 PM 05/12/24 By using the attestations below, the signing clinician agrees that I have read and verify that the documentation has been personally reviewed by me and ensure that the documentation accurately reflects the encounter. GC: I personally saw this patient on the day of the encounter, performed the sevilla portion(s) of the service and participated in the management and confirm the resident's documentation. Please note there may be an additional personal documentation from me. My additional comments are as follows: In light of acute on chronic heart failure with preserved ejection fraction, [place] Heart Association functional class III, we will continue to optimize guideline directed medical therapy. It is also quite likely that he has coexistent paroxysmal atrial fibrillation and for that we will give him an event monitor at the time of discharge with likely plan for catheter ablation to maintain durable sinus rhythm in the future. Yash Leija MD, ScM, MSc Cardiac Primer Waterproofing Machine Adjuster Email: [email or web address] Cardiology Consult Note Reason for Consult: HF exacerbation HPI: Ruma Carlton is a 63 y.o. female with a past medical history significant for chronic congestive diastolic heart failure, coronary heart disease status post CABG x 3 on November 2023, hypothyroidism, paroxysmal atrial fibrillation, type 2 diabetes mellitus, hyperlipidemia, nicotine dependence, morbid obesity with BMI of 51.02. Patient presented to [facility] from [facility] ER for possible heart catheterization. Patient presented to the [facility] ER on 05/10 with complaints of gradually progressive shortness of breath for 1-2 weeks. Patient endorsed exertional shortness of breath and weight gain of 4 at least 10 pounds. Endorsed bilateral lower extremity edema for the past few weeks. Workup at [facility] demonstrated elevated BNP, elevated troponin and EKG showing NSTEMI. Patient was admitted to the ICU at [facility] overnight and was placed on heparin drip. Patient denied any chest pain/discomfort, palpitation. Patient presented with shortness of breath. Vitals are unremarkable. Labs notable for troponin 0.06, BNP 537. EKG showed sinus tachycardia. Last echo showed showed EF of 65-70% with no regional WMA(12/21/2023). Patient was treated with GDMT. Cardiology was consulted for management of HF excerbation. Cardiology ROS: Negative except as mentioned. Past Medical History She has a past medical history of Diabetes mellitus ([facility]) (approx 2019), Disease of thyroid gland (august 2023), and Hypertension (unknown, ok now). Surgical History She has a past surgical history that includes Hand surgery (02/2022) and Cardiac catheterization (mid ). Social History She reports that she has quit smoking. Her smoking use included cigarettes. She has a 40 pack-year smoking history. She has never used smokeless tobacco. She reports current alcohol use. She reports that she does not currently use drugs after having used the following drugs: Marijuana. Family History Family History Problem Relation Name Age of Onset Breast cancer Mother Lupe Amin 65 Cancer Mother Lupe Amin Depression Mother Lupe Amin Anemia Father Ledy TorresRod Atrial fibrillation Father Ledy Eloisa Diabetes type II Father Ledy Eloisa Hypertension Father Ledy Eloisa Obesity Father Ledy Amin Lupus Sister Alcohol abuse Brother Other (POTS) Niece Migraines Daughter Other (POTS) Nephew Autoimmune disease Nephew Sudden Neg Hx Aneurysm Neg Hx Allergies Codeine, Metoclopramide hcl, and Sulfa (sulfonamide antibiotics) Medications Current Outpatient Medications Medication Instructions aspirin 81 mg, oral, Daily atorvastatin (LIPITOR) 40 mg, oral, Daily diclofenac (Voltaren) 1 % topical gel topical (top), 4 times daily fluticasone furoate-vilanteroL (Breo Ellipta) 100-25 mcg/dose inhaler inhalation, Daily furosemide (LASIX) 40 mg, oral, Daily before breakfast guaiFENesin (MUCINEX) 1,200 mg, oral, 2 times daily, Do not crush, chew, or split. lamoTRIgine (LaMICtal) 200 mg tablet 1 tablet, oral, Daily levothyroxine (SYNTHROID, LEVOXYL) 50 mcg, oral, Daily before breakfast magnesium oxide (MAG-OX) 400 mg, oral, 2 times daily metoprolol tartrate (LOPRESSOR) 12.5 mg, oral, 2 times daily mirtazapine (Remeron) 15 mg tablet Pt not taking polyethylene glycol (MIRALAX) 17 g, oral, As needed pyRIDostigmine (MESTINON) 120 mg, oral, 4 times daily rivaroxaban (XARELTO) 40 mg SITagliptin phosphate (Januvia) 100 mg tablet Take 1 tablet every day by oral route for 90 days. spironolactone (ALDACTONE) 12.5 mg, oral, Daily venlafax (more content not included)...NormalUnWestern Reserve Hospital POCT GLUCOSE METER UNSOLICITED RESULTSon 06-34-0066Zcqhyum [Mass/Vol]165 mg/dL Jmiy91-619LtrflbmkokWestern Reserve HospitalComment on above:Order Comment: Waived Testing in the ED is performed under the ED CLIA certificate #[id number]. Result Comment: [email or web address] By: #### [id number] ####[facility] ([facility])[address] [place], [place] [address]Xnfsjlu [Mass/Vol]183 mg/iJSola22-101 [facility] HospitalComment on above:Order Comment: Waived Testing in the ED is performed under the ED CLIA certificate #[id number].Result Comment: [id number] By: #### [id number] #### [facility] ([facility]) [address] [place], [place] [address]Jnooeqe [Mass/Vol]152 mg/qKFzfr99-948DtcqrfhzlxWestern Reserve HospitalComment on above:Order Comment: Waived Testing in the ED is performed under the ED CLIA certificate #[id number].Result Comment: bflood Performed By: #### [id number] #### [facility] ([facility]) [address] [place] [place], [place] [address]Dnayvxi [Mass/Vol]189 mg/oPCzzc32-397JwmygwlrhzWestern Reserve HospitalComment on above:Order Comment: Waived Testing in the ED is performed under the ED CLIA certificate #[id number].Result Comment: bflood Performed By: #### [id number] ####[facility] ([facility])[address] [facility] [place] [address]XNHBIYJJDMB VIRUS PCR PANELon 92-84-8491NCOPMOJEQF DETECTION BY PCRNot detectedNormalNot DetectedUnWestern Reserve HospitalComment on above:Order Comment: Testing methodology is a multiplexed nucleic acid test intended for the simultaneousqualitative detection and differentiation of nucleic acids from multiple viral and bacterial respiratory organisms in nasopharyngeal swabs (HAND GRINDER).Performed By: #### [id number] ####[facility] ([facility])[address] [facility], [place] [address]C. PARAPERTUSSIS DNANot detectedNormal Not DetectedUnWestern Reserve HospitalComment on above:Order Comment: Testing methodology is a multiplexed nucleic acid test intended for the simultaneousqualitative detection and differentiation of nucleic acids from multiple viral and bacterial respiratory organisms in nasopharyngeal swabs (HAND GRINDER).Performed By: #### [id number] ####[facility] ([facility])[address] [place] [address]INSGJMGHIZ PERTUSSIS DNA PRESENCE IN UNSPECIFIED SPECIMEN BY ID*Not detectedNormalNot DetectedUnWestern Reserve HospitalComment on above:Order Comment: Testing methodology is a multiplexed nucleic acid test intended for the simultaneousqualitative detection and differentiation of nucleic acids from multiple viral and bacterial respiratory organisms in nasopharyngeal swabs (HAND GRINDER).Performed By: #### [id number] ####[facility] ([facility])[address] [place], [place] [address]CSZMVLPJBPPSF PNEUMONIAENot detected NormalNot DetectedUnWestern Reserve HospitalComment on above:Order Comment: Testing methodology is a multiplexed nucleic acid test intended for the simultaneousqualitative detection and differentiation of nucleic acids from multiple viral and bacterial respiratory organisms in nasopharyngeal swabs (HAND GRINDER).Performed By: #### [id number] ####[facility] ([facility])[address] [place], [place] [address]MVBETAYVKSW 229ENot detectedNormalNot DetectedUnWestern Reserve HospitalComment on above:Order Comment: Testing methodology is a multiplexed nucleic acid test intended for the simultaneousqualitative detection and differentiation of nucleic acids from multiple viral and bacterial respira tory organisms in nasopharyngeal swabs (HAND GRINDER).Performed By: #### [id number] ####[facility] ([facility])[address] [place], [place] [address]WBIPJGOBJNR LJO2Bni detectedNormalNot DetectedUnWestern Reserve HospitalComment on above: Order Comment: Testing methodology is a multiplexed nucleic acid test intended for the simultaneousqualitative detection and differentiation of nucleic acids from multiple viral and bacterial respiratory organisms in nasopharyngeal swabs (HAND GRINDER).Performed By: #### [id number] ####[facility] ([facility])[address] [place], [place] [address]YDCXCBNIJMR IU68Pev detectedNormalNot DetectedUnWestern Reserve HospitalComment on above:Order Comment: Testing methodology is a multiplexed nucleic acid test intended for the simultaneousqualitative detection and differentiation of nucleic acids from multiple viral and bacterial respira tory organisms in nasopharyngeal swabs (HAND GRINDER).Performed By: #### [id number] ####[facility] ([facility])[address] [place], [place] [address]AQLXWBCXPSI IJ72Gcl detectedNormalNot DetectedUnWestern Reserve HospitalComment on above: Order Comment: Testing methodology is a multiplexed nucleic acid test intended for the simultaneousqualitative detection and differentiation of nucleic acids from multiple viral and bacterial respiratory organisms in nasopharyngeal swabs (HAND GRINDER).Performed By: #### [id number] ####[facility] ([facility])[address] [place], [place] [address]UXCLQ METAPNEUMOVIRUSNot detectedNormalNot DetectedUnWestern Reserve HospitalComment on above:Order Comment: Testing methodology is a multiplexed nucleic acid test intended for the simultaneousqualitative detection and differentiation of nucleic acids from multiple viral and bacterial respiratory organisms in nasopharyngeal swabs (HAND GRINDER).Performed By: #### [id number] ####[facility] ([facility])[address] [place], [place] [address]LFLIT RHINOVIRUS+ENTEROVIRUSNot detectedNormalNot DetectedUnWestern Reserve HospitalComment on above:Order Comment: Testing methodology is a multiplexed nucleic acid test intended for the simultaneousqualitative detection and differentiation of nucleic acids from multiple viral and bacterial respiratory organisms in nasopharyngeal swabs (HAND GRINDER).Performed By: #### [id number] ####[facility] ([facility])[address] [place], [place] [address]DCZVPTNEK ANot detected NormalNot DetectedUnWestern Reserve HospitalComment on above:Order Comment: Testing methodology is a multiplexed nucleic acid test intended for the simultaneousqualitative detection and differentiation of nucleic acids from multiple viral and bacterial respiratory organisms in nasopharyngeal swabs (HAND GRINDER).Performed By: #### [id number] ####[facility] ([facility])[address] [place], [place] [address]NGEJJANDJ BNot detectedNormalNot DetectedUnWestern Reserve HospitalComment on above:Order Comment: Testing methodology is a multiplexed nucleic acid test intended for the simultaneousqualitative detection and differentiation of nucleic acids from multiple viral and bacterial respira tory organisms in nasopharyngeal swabs (HAND GRINDER).Performed By: #### [id number] ####[facility] ([facility])[address] [place], [place] [address]BAXNXRTDHY PNEUMONIAENot detectedNormalNot DetectedUnWestern Reserve HospitalComment on above: Order Comment: Testing methodology is a multiplexed nucleic acid test intended for the simultaneousqualitative detection and differentiation of nucleic acids from multiple viral and bacterial respiratory organisms in nasopharyngeal swabs (HAND GRINDER).Performed By: #### [id number] ####[facility] ([facility])[address] [place], [place] [address]JTEJHAQRFTHIW 1Not detectedNormalNot DetectedUnWestern Reserve HospitalComment on above:Order Comment: Testing methodology is a multiplexed nucleic acid test intended for the simultaneousqualitative detection and differentiation of nucleic acids from multiple viral and bacterial respira tory organisms in nasopharyngeal swabs (HAND GRINDER).Performed By: #### [id number] ####[facility] ([facility])[address] [place], [place] [address]PQTCFBZDQYHWY 2Not detectedNormalNot DetectedUnWestern Reserve HospitalComment on above: Order Comment: Testing methodology is a multiplexed nucleic acid test intended for the simultaneousqualitative detection and differentiation of nucleic acids from multiple viral and bacterial respiratory organisms in nasopharyngeal swabs (HAND GRINDER).Performed By: #### [id number] ####[facility] ([facility])[address] [place], [place] [address]XGYSSTPWMKIGU 3Not detectedNormalNot DetectedUnWestern Reserve HospitalComment on above:Order Comment: Testing methodology is a multiplexed nucleic acid test intended for the simultaneousqualitative detection and differentiation of nucleic acids from multiple viral and bacterial respira tory organisms in nasopharyngeal swabs (HAND GRINDER).Performed By: #### [id number] ####[facility] ([facility])[address] [place], [place] [address]AVNNBREDALZHO 4Not detectedNormalNot DetectedUnWestern Reserve HospitalComment on above: Order Comment: Testing methodology is a multiplexed nucleic acid test intended for the simultaneousqualitative detection and differentiation of nucleic acids from multiple viral and bacterial respiratory organisms in nasopharyngeal swabs (HAND GRINDER).Performed By: #### [id number] ####[facility] ([facility])[address] [place], [place] [address]CULF SYNCYTIAL VIRUSNot detectedNormalNot DetectedUnWestern Reserve HospitalComment on above:Order Comment: Testing methodology is a multiplexed nucleic acid test intended for the simultaneousqualitative detection and differentiation of nucleic acids from multiple viral and bacterial respiratory organisms in nasopharyngeal swabs (HAND GRINDER).Performed By: #### [id number] ####[facility] ([facility])[address] [place] [address]VROK-CxH-9 (COVID-19) RNA CITLALY+probe Ql (Unsp spec)Not detectedNormalNot DetectedUnWestern Reserve HospitalComment on above:Order Comment: Testing methodology is a multiplexed nucleic acid test intended for the simultaneousqualitative detection and differentiation of nucleic acids from multiple viral and bacterial respiratory organisms in nasopharyngeal swabs (HAND GRINDER).Performed By: #### [id number] ####[facility] ([facility])[address] [place] [address]OMAEMUGM Ion 94-33-6138Ngtxqbwx I.cardiac [Mass/Vol]0.03 ng/mLNormal0.00-0.04UnWestern Reserve HospitalComment on above:Performed By: #### [id number] #### [facility] ([facility]) [address] [place], [place] [address]Akexcgnj I.cardiac [Mass/Vol]0.04 ng/mLNormal0.00-0.04UnWestern Reserve HospitalComment on above:Performed By: #### [id number] ####[facility] ([facility])[address] [place], [place] [address]JZMIFBJXDD MICROSCOPIC WITH REFLEX CULTUREon 80-36-9702FUU (#/HPF) IN URINE SEDIMENT3-5AbnormalNone Seen, 0-2UnWestern Reserve HospitalComment on above:Performed By: #### [id number] #### [facility] ([facility]) [address] [place], [place] [address]RWLAQOMC EPITHELIAL CELLS (#/LPF) IN URINE SEDIMENTModerate AbnormalNone Seen, Occasional, FewUnWestern Reserve HospitalComment on above:Performed By: #### [id number] #### [facility] ([facility]) [address] [place], [place] [address]MYI (LEUKOCYTE) (#/HPF) IN URINE SEDIMENT6-10AbnormalNone Seen, 0-2UnWestern Reserve HospitalComment on above:Performed By: #### [id number] #### [facility] ([facility]) [address] [place], [place] [address]ZSVRBCBIYV WITH REFLEX CULTUREon 31-26-8216AGJGPSBMI, TOTAL PRESENCE IN URINENegativeNormncNegativeWood County Hospital Comment on above:Performed By: #### [id number] #### [facility] ([facility]) [address] [place], [place] [address]Uobzknt (U)ClearNormalClearUnWestern Reserve Hospital Comment on above:Performed By: #### [id number] #### [facility] ([facility]) [address] [place], [place] [address]Ybhyd (U)Light-YellowNormalColorless, Yellow, Light-Yellow [facility] HospitalComment on above:Performed By: #### [id number] #### [facility] ([facility]) [address] [place], [place] [address]WBFOHVC (MG/DL) IN URINENormalNormalNormalUniversWayne HealthCare Main CampusComment on above:Performed By: #### [id number] #### [facility] ([facility]) [address] [place], [place] [address]RIZSBKMYSE PRESENCE IN URINENegativeNormncNegMansfield HospitalComment on above:Performed By: #### [id number] #### [facility] ([facility]) [address] [place], [place] [address]Biebrhg Ql (U)NegativeNormalNegativeWood County HospitalComment on above:Performed By: #### [id number] #### [facility] ([facility]) [address] [place], [place] [address]FXVRNAIWD ESTERASE PRESENCE IN URINE BY TEST STRIPSmallAbnormal NegativeWood County HospitalComment on above:Performed By: #### [id number] #### [facility] ([facility]) [address] [place], [place] [address]FTRMJNW PRESENCE IN URINENegativeNormalNegativeUnWestern Reserve HospitalComment on above:Performed By: #### [id number] #### [facility] ([facility]) [address] [place] [address]nV (U)6.0 [pH]Normal5.0-8.0[facility] Comment on above:Performed By: #### [id number] #### [facility] ([facility]) [address] [place] [place] [address]Btvijsw (U) [Mass/Vol]NegativeNormalNegativeUnWestern Reserve HospitalComment on above:Performed By: #### [id number] #### [facility] ([facility]) [address] [place] [address]Flxgmbtz gravity (U) [Rel density]1.855Lxovjt7.010-1.030 [facility] HospitalComment on above:Performed By: #### [id number] #### [facility] ([facility]) [address] [place] [address]HYCQADPGGZRT (MG/DL) IN URINENormalNormalNormalUniversWayne HealthCare Main CampusComment on above:Performed By: #### [id number] #### [facility] ([facility]) [address] [place] [address]POBBki 07-47-4301FNMAMRNLL PARTIAL THROMBOPLASTIN TIME IN PPP BY COAGULATION ASSAY27.4 DoqwytfCpeehu77.0-35.0UnWestern [facility] Hospital Comment on above:Order Comment: Baseline aPTT before initiating heparin infusion.Result Comment: Clinical significance of the APTT is questionable in the presence of heparin.Performed By: #### [id number] #### [facility] ([facility]) [address] [place] [address]Drnyftjzi partial thromboplastin time (aPTT) in platelet poor plasma by coagulation aon 64-25-8337fCKT Coag (PPP) [Time]Activated partial thromboplastin time (aPTT) in platelet poor plasma by coagulation a22.3-36.2 [facility] CampusB-TYPE NATRIURETIC PEPTIDEon 05-11-2024 Natriuretic peptide B (Bld) [Mass/Vol]537 pg/mLHigh0-100UnWestern Reserve HospitalComment on above:Performed By: #### [id number] #### [facility] ([facility]) [address] [place], [place] [address]Gtdqdamcm Auto (Bld) [#/Vol]on 98-86-2807Bfqlojojz (Bld) [#/Vol] Automated basophil count0.0-0.1FTwin City HospitalBasophils/100 WBC Auto (Bld)on 29-06-1596Gssbfujsy/100 WBC (Bld)Automated basophil %0.2-2.0 [facility] WITH AUTO DIFFERENTIALon 05-11-2024 Basophils (Bld) [#/Vol]0.10 10*3/uLNormal0.00-0.20UnWestern Reserve HospitalComment on above:Performed By: #### [id number] ####[facility] ([facility])[address] [place], [place] [address]Bdldzqguw/100 WBC (Bld)1.3 %High 0.0-1.0UnWestern Reserve HospitalComment on above:Performed By: #### [id number] ####[facility] ([facility])[address] [place] [address] Eosinophils (Bld) [#/Vol]0.31 10*3/uLNormal0.00-0.50UnWestern Reserve HospitalComment on above:Performed By: #### [id number] ####[facility] ([facility])[address] [place], [place] [address]Mimomdmvutb/100 WBC (Bld)4.0 %Normal 0.0-6.0UnWestern Reserve HospitalComment on above:Performed By: #### [id number] ####[facility] ([facility])[address] [place] [address] Erythrocyte distribution width (RBC) [Ratio]13.9 %Koyzjk20.5-15.0UnWestern Reserve HospitalComment on above:Performed By: #### [id number] ####[facility] ([facility])[address] [place], [place] [address]DMRLQEMATGN MEAN CORPUSCULAR HEMOGLOBIN CONCENTRATION (G/DL) BY VURXLPROL83.7 g/uZYhleww52.0-35.0 [facility] HospitalComment on above:Performed By: #### [id number] ####[facility] ([facility])[address] [place], [place] [address]Hjmmotwetc (Bld) [Volume fraction]41.6 %Tcpvdh34.0-48.0UnWestern [facility] Hospital Comment on above:Performed By: #### [id number] ####[facility] ([facility])[address] [place], [place] [address]Chchvfbahk (Bld) [Mass/Vol]14.0 g/eQDtxdzi33.0-15.0 [facility] HospitalComment on above:Performed By: #### [id number] ####[facility] ([facility] [place], [place] [address]Uedrruvb granulocytes (Bld) [#/Vol]0.03 10*3/uLNormal0.00-0.20UnWestern Reserve HospitalComment on above:Performed By: #### [id number] ####[facility] ([facility])[address] [place], [place] [address]Xrdlwugx granulocytes/100 WBC (Bld)0.4 %Normal0.0-1.0UnWestern Reserve HospitalComment on above:Performed By: #### [id number] ####[facility] ([facility])[address] [place] [place] [address] Lymphocytes (Bld) [#/Vol]2.25 10*3/uLNormal1.20-4.00UnWestern Reserve HospitalComment on above:Performed By: #### [id number] ####[facility] ([facility])[address] [place], [place] [address]Lufrpjfjfcw/100 WBC (Bld)29.3 %Normal 20.0-45.0UnWestern Reserve HospitalComment on above:Performed By: #### [id number] ####[facility] ([facility])[address] [place] [address]JKY (RBC) [Entitic mass]28.9 hiYbhwoe45.0-33.0UnWestern [facility] Hospital Comment on above:Performed By: #### [id number] ####[facility] ([facility])[address] [place], [place] [address]TJL (RBC) [Entitic vol]86.0 xSDsmokm77.0-98.0 [facility] HospitalComment on above:Performed By: #### [id number] ####[facility] ([facility])[address] [place], [place] [address]Zrunzqdwa (Bld) [#/Vol]0.50 10*3/uLNormal0.10-1.00UnWestern Reserve HospitalComment on above:Performed By: #### [id number] ####[facility] ([facility])[address] [place], [place] [address]Tshwyzaby/100 WBC (Bld)6.5 %Normal5.0-12.0UnWestern Reserve HospitalComment on above:Performed By: #### [id number] ####[facility] ([facility])[address] [place], [place] [address]Nfqimkdsisu (Bld) [#/Vol] 4.50 10*3/uLNormal1.60-7.60UnWestern Reserve HospitalComment on above: Performed By: #### [id number] ####[facility] ([facility])[address] [place], [place] [address]Tkqtyvdwzlm/100 WBC (Bld)58.5 %Olvtko33.0-72.0UnWestern Reserve HospitalComment on above:Performed By: #### [id number] ####[facility] ([facility])[address] [place] [address]FBKK (PER 100 WBCS) BY AUTOMATED COUNT0.0 %Drhuqm5ZgscyvthanWestern Reserve HospitalComment on above: Performed By: #### [id number] ####[facility] ([facility])[address] [place] [address]SXERMJWRK (10*3/UL) IN BLOOD AUTOMATED PMJFI039 10*3/uLNormal 150-400UnWestern Reserve HospitalComment on above:Performed By: #### [id number] ####[facility] ([facility])[address] [place] [address]VTN (Bld) [#/Vol]4.84 10*6/uLNormal3.80-5.00Un[facility] Hospital Comment on above:Performed By: #### [id number] ####[facility] ([facility])[address] [place] [address]BJW (Bld) [#/Vol]7.69 10*3/uLNormal4.00-10.60 [facility] HospitalComment on above:Performed By: #### [id number] ####[facility] ([facility])[address] [place], [place] [address]VOJWTFQHIAFPW METABOLIC PANELon 13-94-4232Kkpbgku [Mass/Vol]4.1 g/dLNormal3.5-5.7UnWestern Reserve HospitalComment on above:Performed By: #### [id number] ####[facility] ([facility])[address] [place], [place] [address]KVL [Catalytic activity/Vol]128 U/UOcys02-660HvepxukyttWestern Reserve HospitalComment on above:Performed By: #### [id number] ####[facility] ([facility])[address] [place], [place] [address]WJW [Catalytic activity/Vol]13 U/LNormal7-52UnWestern Reserve HospitalComment on above:Performed By: #### [id number] ####[facility] ([facility])[address] [place], [place] [address]Ldzag gap [Moles/Vol]13 mmol/L Normal7-20UnWestern Reserve HospitalComment on above:Performed By: #### [id number] ####[facility] ([facility])[address] [place], [place] [address]XKR [Catalytic activity/Vol]18 U/NLnaxqj70-01OesjbmbztvWestern Reserve Hospital Comment on above:Performed By: #### [id number] ####[facility] ([facility])[address] [place], [place] [address]Bsrmsokeq [Mass/Vol]0.4 mg/dLNormal0.3-1.0 [facility] HospitalComment on above:Performed By: #### [id number] ####[facility] ([facility]ER)[address] [place], [place] [address]Mbovbht [Mass/Vol]8.9 mg/dLNormal8.6-10.3UnWestern Reserve HospitalComment on above:Performed By: #### [id number] ####[facility] ([facility])[address] [place], [place] [address]Kvgeqdnb [Moles/Vol]98 mmol/XBbcxhi80-486YzxfkvjkcdWestern Reserve HospitalComment on above:Performed By: #### [id number] ####[facility] ([facility])[address] [place], [place] [address]AG3 [Moles/Vol]27 mmol/UGeflje01-27 [facility] HospitalComment on above:Performed By: #### [id number] ####[facility] ([facility])[address] [place], [place] [address]Oitfalbnhj [Mass/Vol]0.98 mg/dLNormal0.60-1.20UnWestern Reserve HospitalComment on above:Performed By: #### [id number] ####[facility] ([facility])[address] [place], [place] [address]WMOTSWHPSG FILTRATION RATE ML/MIN/1.73 SQ M.TSDJZKSIA55.3 mL/min/1.73m*2Normal>60.0UnWestern Reserve HospitalComment on above: Result Comment: [facility]???s estimated glomerular filtration rate (eGFR) will [...] potential consequences that do not disproportionately affect anyone group of individuals.Performed By: #### [id number] ####[facility] ([facility])[address] [place] [place] [address]Jibzeyg [Mass/Vol]151 mg/vZRccv10-776PirgpsldovWestern Reserve HospitalComment on above:Performed By: #### [id number] ####[facility] ([facility])[address] [place], [place] [address]Wzrbdnrph [Moles/Vol]3.8 mmol/L Normal3.5-5.1UnWestern Reserve HospitalComment on above:Performed By: #### [id number] ####[facility] ([facility])[address] [place] [address] Protein [Mass/Vol]7.0 g/dLNormal6.0-8.3Un[facility] Hospital Comment on above:Performed By: #### [id number] ####[facility] ([facility])[address] [facility] [place] [address]Cmjzru [Moles/Vol]134 mmol/DFet132-111TsdjanhpfzWestern Reserve HospitalComment on above:Performed By: #### [id number] ####[facility] [facility] ([facility])[address] [facility] [place] [place], [place] [address]Niuc nitrogen [Mass/Vol] 16 mg/dLNormal7-25UnWestern Reserve HospitalComment on above:Performed By: #### [id number] ####[facility] ([facility])[address] [place] [address] UREA NITROGEN/CREATININE (MASS RATIO) IN SER/PLAS16.3NormalUniversWayne HealthCare Main CampusComment on above:Performed By: #### [id number] ####[facility] ([facility])[address] [place], [place] [address]Wftsbnpttdb/100 WBC Auto (Bld)on 56-09-5980Jfwpckwkycj/100 WBC (Bld)Automated eosinophil %0.9-7.0[facility] CampusErythrocyte distribution width Auto (RBC) [Ratio]on 37-42-4988Lzmhcvjwwtk distribution width (RBC) [Ratio]Erythrocyte distribution width [Ratio] by Automated count11.0-15.0[facility] Estimated glomerular filtration rate (GFR) non- Americanon 05-11-2024 GFR/1.73 sq M.predicted among non-blacks MDRD (S/P/Bld) [Vol rate/Area]Estimated glomerular filtration rate (GFR) non- AmericanLow>=60 mL/min/1.73m 2 [facility] CampusHematocrit Auto (Bld) [Volume fraction]on 30-10-5782Ohuotgmaxh (Bld) [Volume fraction]Hematocrit [Volume Fraction] of Blood by Automated count36.0-48.0[facility] CampusHemoglobin [Mass/volume] in Bloodon 54-60-0041Ozbgywvhml (Bld) [Mass/Vol]Hemoglobin [Mass/volume] in Blood12.0-16.0[facility] CampusINR in Platelet poor plasma by Coagulation assayon 30-82-2025LUD Coag (PPP) [Relative time]INR in Platelet poor plasma by Coagulation assayFirelands Regional Medical Center South Campus Comment on above:DESIRED INR:2.0-3.0 CONDITIONS NOT LISTED BELOW2.5-3.5 FOR PROSTHETIC HEART VALVE REPLACEMENT2.5-3.5 RECURRENT THROMBOSISLaboratory - Chemistry and Chemistry - challengeon 66-72-0869Zjamrsz [Mass/Vol]9.2 mg/dL 8.5-10.1FTwin City HospitalChloride [Moles/Vol]103 mmol/L98-107 [facility] CampusCO2 [Moles/Vol]30.0 mmol/L21.0-32.0[facility] CampusCreatinine [Mass/Vol]1.17 mg/dLHigh0.55-1.02[facility] CampusGFR/1.73 sq M.predicted MDRD (S/P/Bld) [Vol rate/Area]57 mL/min/{1.73_m2}Low>=60 mL/min/1.73m 2FTwin City HospitalGlucose [Mass/Vol]127 mg/dHHobh62-105IbqdfeizuFirelands Regional Medical Center South CampusPotassium [Moles/Vol]3.7 mmol/L3.5-5.1FOhioHealth Shelby Hospitalodium [Moles/Vol] 139 mmol/K572-549TbagtzvxzFirelands Regional Medical Center South CampusUrea nitrogen [Mass/Vol]15.0 mg/dL7.0-18.0[facility] CampusUrea nitrogen/Creatinine [Mass ratio]12.8 mg/mgFirelands Regional Medical Center South CampusLaboratory - Coagulationon 01-28-9435lYMX Coag (Bld) [Time]36.6 sCritically low43.5-61.5FTwin City HospitalComment on above:RESULTS CALLED TO SHAYLA ESPINOSA RN @BY Ruby Keith at 1902Laboratory - Hematology and Cell countson 66-72-9727Irzdejyk granulocytes/100 WBC (Bld)0.3 %0.0-0.5FTwin City HospitalLeukocytes [#/volume] corrected for nucleated erythrocytes in Blood by Automated counon 39-23-0256MWR corrected for nucl RBC Auto (Bld) [#/Vol]Leukocytes [#/volume] corrected for nucleated erythrocytes in Blood by Automated coun4.0-11.0[facility] CampusLymphocytes Auto (Bld) [#/Vol]on 11-03-7921Gtvapnxlzjq (Bld) [#/Vol]Lymphocytes [#/volume] in Blood by Automated count1.2-3.8[facility] CampusLymphocytes/100 WBC Auto (Bld)on 45-75-0363Wnzqccckznl/100 WBC (Bld)Lymphocytes/100 leukocytes in Blood by Automated count20.5-60.0[facility] CampusMAGNESIUMon 34-44-7050Xdjjchltf [Mass/Vol]2.2 mg/dLNormal1.9-2.7Wood County HospitalComment on above:Performed By: #### [id number] #### [facility] ([facility]) [address] [place], [place] [address]ITG Auto (RBC) [Entitic mass]on 59-75-3521BLV (RBC) [Entitic mass]MCH [Entitic mass] by Automated count26.7-34.0[facility] CampusMCHC Auto (RBC) [Mass/Vol]on 25-67-7763WWPA (RBC) [Mass/Vol]MCHC [Mass/volume] by Automated count29.9-35.2FTwin City HospitalMCV Auto (RBC) [Entitic vol]on 47-06-2301YBI (RBC) [Entitic vol]MCV [Entitic volume] by Automated count81.0-99.0[facility] CampusMonocytes Auto (Bld) [#/Vol]on 96-84-5687Glqjxhgbf (Bld) [#/Vol]Automated blood monocyte count0.3-0.8 [facility] CampusMonocytes/100 WBC Auto (Bld)on 05-11-2024 Monocytes/100 WBC (Bld)Automated monocyte %1.7-12.0[facility] CampusNeutrophils Auto (Bld) [#/Vol]on 94-99-7753Vrmubhfnecj (Bld) [#/Vol] Neutrophils [#/volume] in Blood by Automated count1.4-6.5FTwin City HospitalNeutrophils/100 WBC Auto (Bld)on 22-09-8556Zvuyvmdkfbd/100 WBC (Bld)Automated neutrophil %43.0-75.0[facility] CampusNo Panel Informationon 67-47-6381Penmfnwf I High Kclmavzzxaq4146.8 pg/mLCritically high 4.0-51.3FTwin City HospitalComment on above:RESULTS CALLED TO JOSE CRUZ RN at 1018CUT-OFF POINTS HAVE BEEN ESTABLISHED BASED ON THE FOURTHUNIVERSAL DEFINITION OF MYOCARDIAL INFARCTION. THE UPPERREFERENCE LIMIT (URL) OF TROPONIN, DEFINED ASTHE 99THPERCENTILE OF cTnI DISTRIBUTION IN A REFERENCE POPULATION,HAS BEEN CONFIRMED THE DECISION THRESHOLD FOR MIDIAGNOSIS.99TH PERCENTILE = 51.4 PG/MLNOTE: HIGH-SENSITIVITY TROPONIN ASSAY IS NOTINTENDED TO BEUSED IN ISOLATION BUT SHOULD BE INTERPRETED IN CONJUNCTIONWITH OTHER DIAGNOSTIC AND CLINICAL INFORMATION.Eosinophils # (Auto)0.4 10 3/uL 0.0-0.7FTwin City HospitalImmature Granulocyte # (Auto)0.02 10 3/uL0.00-0.03[facility] South CampusPHOSPHORUSon 57-94-0792Pompjrilf [Mass/Vol]3.1 mg/dLNormal2.5-5.0UnWestern Reserve HospitalComment on above:Performed By: #### [id number] ####[facility] [place], [place] [address]COJJ GLUCOSE METER UNSOLICITED RESULTSon 42-17-3374Pqisiem [Mass/Vol]163 mg/oOEvlx75-617WtymatcukkWestern Reserve HospitalComment on above:Order Comment: Waived Testing in the ED is performed under the ED CLIA certificate #[id number].Result Comment: [id number] By: #### [id number] #### [facility] ([facility]) [address] [place], [place] [address]JJIENGG-SQNfn 01-71-3018KRT IN PPP BY COAGULATION ASSAY0.99 Normal0.90-1.10UnWestern Reserve HospitalComment on above:Result Comment: ACC RECOMMENDED INR FOR WARFARIN THERAPY CONDITION INR PROPHYLAXIS OF VENOUS THROMBOSIS 2-3 (HIGH-RISK SURGERY) TREATMENT OF VENOUS THROMBOSIS 2-3 TREATMENT OF PULMONARY EMBOLISM 2-3 PREVENTION OF SYSTEMIC EMBOLISM: 2-3 ACUTE MYOCARDIAL INFARCTION TISSUE HEART VALVES VALVULAR HEART DISEASE ATRIAL FIBRILLATION RECURRENT SYSTEMIC EMBOLISM MECHANICAL HEART VALVE 2.5-3.5 FROM: ORAL ANTICOAGULANTS. MECHANISM OF ACTION, CLINICAL EFFECTIVENESS, AND OPTIMAL THERAPEUTIC RANGE. CHEST 1995;108:231S-246S.Performed By: #### [id number] #### [facility] ([facility]) [address] [place], [place] [address]DAAZHXWZATM TIME (PT) IN PPP BY COAGULATION ASSAY13.1 Seconds Yziyve26.3-14.8UnWestern Reserve HospitalComment on above:Performed By: #### [id number] #### [facility] ([facility]) [address] [place], [place] [address]Kgeisacy mean volume Auto (Bld) [Entitic vol]on 05-11-2024 Platelet mean volume (Bld) [Entitic vol]Platelet mean volume [Entitic volume] in Blood by Automated count9.5-13.5FTwin City HospitalPlatelets Auto (Bld) [#/Vol]on 53-97-1910Ttnqcclea (Bld) [#/Vol]Platelets [#/volume] in Blood by Automated iyduz167-351DzsfwvnjdFirelands Regional Medical Center South CampusProthrombin time (PT) on 20-40-8462XD Coag (PPP) [Time]Prothrombin time (PT)9.0-11.6FTwin City HospitalRBC Auto (Bld) [#/Vol]on 65-90-0151SZR (Bld) [#/Vol]Erythrocytes [#/volume] in Blood by Automated count4.20-5.40[facility] Serum or plasma anion gap determinationon 82-09-8360Aapmh gap [Moles/Vol]Serum or plasma anion gap determinationFirelands Regional Medical Center South CampusTROPONIN Ion 96-80-8284Otdhwoup I.cardiac [Mass/Vol]0.06 ng/mLHigh0.00-0.04UnWestern Reserve HospitalComment on above:Performed By: #### [id number] ####[facility] ([facility])[address] [place], [place] [address]Noscvfmby Auto (Bld) [#/Vol]on 61-65-3788Fprbsbczk (Bld) [#/Vol]Automated basophil count0.0-0.1 [facility] CampusBasophils/100 WBC Auto (Bld)on 05-10-2024 Basophils/100 WBC (Bld)Automated basophil %0.2-2.0[facility] CampusEosinophils/100 WBC Auto (Bld)on 83-28-9015Xtrwthirohi/100 WBC (Bld) Automated eosinophil %0.9-7.0[facility] CampusErythrocyte distribution width Auto (RBC) [Ratio]on 82-50-2356Oqengqvahqn distribution width (RBC) [Ratio]Erythrocyte distribution width [Ratio] by Automated count11.0-15.0 [facility] CampusEstimated glomerular filtration rate (GFR) non- Americanon 04-64-0864EIE/1.73 sq M.predicted among non-blacks MDRD (S/P/Bld) [Vol rate/Area]Estimated glomerular filtration rate (GFR) non- AmericanLow>=60 mL/min/1.73m 2FTwin City HospitalGlobulin Calc (S) [Mass/Vol]on 33-75-0135Fsoyjbbl (S) [Mass/Vol]Serum globulin measurement by calculation (mass/volume)[facility] CampusHematocrit Auto (Bld) [Volume fraction]on 75-61-7204Xpfiyplizh (Bld) [Volume fraction]Hematocrit [Volume Fraction] of Blood by Automated count36.0-48.0[facility] CampusHemoglobin [Mass/volume] in Bloodon 98-74-6191Puhtkfpqfa (Bld) [Mass/Vol] Hemoglobin [Mass/volume] in Blood12.0-16.0[facility] Laboratory - Chemistry and Chemistry - challengeon 47-87-3631Wigripr [Mass/Vol] 3.5 g/dL3.4-5.0[facility] CampusALP [Catalytic activity/Vol]144 U/HAzrn43-682RmqpltgroFirelands Regional Medical Center South CampusALT [Catalytic activity/Vol]21 U/L 14-59[facility] CampusAST [Catalytic activity/Vol]22 U/L15-37 [facility] CampusBilirubin [Mass/Vol]0.5 mg/dL0.2-1.0[facility] CampusCalcium [Mass/Vol]9.3 mg/dL8.5-10.1FTwin City HospitalChloride [Moles/Vol]102 mmol/B10-678GxvuehxwkFirelands Regional Medical Center South CampusCO2 [Moles/Vol]29.0 mmol/L21.0-32.0[facility] Creatinine [Mass/Vol]1.17 mg/dLHigh0.55-1.02[facility] GFR/1.73 sq M.predicted MDRD (S/P/Bld) [Vol rate/Area]57 mL/min/{1.73_m2}Low>=60 mL/min/1.73m 2FTwin City HospitalGlucose [Mass/Vol]142 mg/dLHigh 74-106[facility] CampusNatriuretic peptide B (Bld) [Mass/Vol] 1140.0 pg/mLHigh<=900.0[facility] CampusPotassium [Moles/Vol]4.4 mmol/L3.5-5.1FTwin City HospitalProtein [Mass/Vol]7.4 g/dL6.4-8.2 [facility]ita Health Systemodium [Moles/Vol]138 mmol/A570-450WpidnexanFirelands Regional Medical Center South CampusUrea nitrogen [Mass/Vol]14.0 mg/dL7.0-18.0[facility] CampusUrea nitrogen/Creatinine [Mass ratio]12.0 mg/mgFirelands Regional Medical Center South CampusLaboratory - Hematology and Cell countson 05-10-2024 Immature granulocytes/100 WBC (Bld)0.4 %0.0-0.5FTwin City Hospital Leukocytes [#/volume] corrected for nucleated erythrocytes in Blood by Automated counon 12-08-2233YNO corrected for nucl RBC Auto (Bld) [#/Vol]Leukocytes [#/volume] corrected for nucleated erythrocytes in Blood by Automated coun 4.0-11.0[facility] CampusLymphocytes Auto (Bld) [#/Vol]on 52-84-4172Wjusykvbllz (Bld) [#/Vol]Lymphocytes [#/volume] in Blood by Automated count1.2-3.8[facility] CampusLymphocytes/100 WBC Auto (Bld)on 41-88-6688Wjrxmiohavm/100 WBC (Bld)Lymphocytes/100 leukocytes in Blood by Automated rorvpMio40.5-60.0[facility] HospitalH Auto (RBC) [Entitic mass]on 34-76-7127NWE (RBC) [Entitic mass]MCH [Entitic mass] by Automated count26.7-34.0[facility] CampusMCHC Auto (RBC) [Mass/Vol]on 45-49-0712NGSJ (RBC) [Mass/Vol]MCHC [Mass/volume] by Automated count29.9-35.2FRegency Hospital CompanyV Auto (RBC) [Entitic vol]on 86-54-7483NJZ (RBC) [Entitic vol]MCV [Entitic volume] by Automated count 81.0-99.0[facility] CampusMonocytes Auto (Bld) [#/Vol]on 30-09-8712Xptksbjsn (Bld) [#/Vol]Automated blood monocyte count0.3-0.8[facility] CampusMonocytes/100 WBC Auto (Bld)on 79-91-3698Hhdzlwiio/100 WBC (Bld)Automated monocyte %1.7-12.0[facility] Neutrophils Auto (Bld) [#/Vol]on 46-18-2683Ktirvlwvgrj (Bld) [#/Vol]Neutrophils [#/volume] in Blood by Automated count1.4-6.5FTwin City Hospital Neutrophils/100 WBC Auto (Bld)on 08-82-3407Yqxqujglgtj/100 WBC (Bld)Automated neutrophil %43.0-75.0[facility] CampusNo Panel Informationon 28-85-8003Saggutef I High Kpzgyfiwrfs260.2 pg/mLCritically high4.0-51.3FTwin City HospitalComment on above:RESULTS CALLED TO ESTHER KENDRICK RN @BY Ruby Gee 2105CUT-OFF POINTS HAVE BEEN ESTABLISHED BASED ON THE FOURTHUNIVERSAL DEFINITION OF MYOCARDIAL INFARCTION. THE UPPERREFERENCE LIMIT (URL) OF TROPONIN, DEFINED THE 99THPERCENTILE OF cTnI DISTRIBUTION IN A REFERENCE POPULATION,HAS BEEN CONFIRMED THE DECISION THRESHOLD FOR MIDIAGNOSIS.99TH PERCENTILE = 51.4 PG/MLNOTE: HIGH-SENSITIVITY TROPONIN ASSAY IS NOT INTENDED TO BEUSED IN ISOLATION BUT SHOULD BE INTERPRETED IN CONJUNCTIONWITHOTHER DIAGNOSTIC AND CLINICAL INFORMATION.Eosinophils # (Auto)0.4 10 3/uL0.0-0.7FTwin City HospitalImmature Granulocyte # (Auto) 0.03 10 3/uL0.00-0.03[facility] South CampusPlatelet mean volume Auto (Bld) [Entitic vol]on 18-61-3598Cvdnorri mean volume (Bld) [Entitic vol]Platelet mean volume [Entitic volume] in Blood by Automated count9.5-13.5FTwin City HospitalPlatelets Auto (Bld) [#/Vol]on 83-54-3274Tenuopdgi (Bld) [#/Vol]Platelets [#/volume] in Blood by Automated crynt847-782UlswvyeopFirelands Regional Medical Center South CampusRBC Auto (Bld) [#/Vol]on 71-03-1046MAY (Bld) [#/Vol]Erythrocytes [#/volume] in Blood by Automated count4.20-5.40[facility] Serum or plasma albumin/globulin mass ratioon 86-77-3278Xqroaor/Globulin [Mass ratio]Serum or plasma albumin/globulin mass ratioAvita Health Systemerum or plasma anion gap determinationon 94-26-2679Dmcps gap [Moles/Vol] Serum or plasma anion gap determinationFirelands Regional Medical Center South Campus29on 62-94-394666Ctnxpzrl created 02/19/24 0942 by Mario Bermudez MD Delete clinical noteNormalUniversity [facility] Hospital29Addendum created 02/19/24 0941 by Mario Bermudez MD Delete clinical noteNormalUniversity of [facility] TylerOffice Visiton 09-58-7266Aplufk-up [id number] Ruma Carlton 1960 F Date Provider Department Center 02/05/2024 3848-DAYA JOHNSON CARD [facility] Family History Problem Relation Age of Onset Breast cancer Mother 65 Cancer Mother Depression Mother Anemia Father Atrial fibrillation Father Diabetes type II Father Hypertension Father Obesity Father Lupus Sister Alcohol abuse Brother Other Niece Migraines Daughter Other Nephew Autoimmune disease Nephew Sudden Neg Hx Aneurysm Neg Hx Family Status - Relation Status Age at Mother Father Sister Brother Niece Alive Daughter Alive Daughter Alive Nephew Alive Neg Hx Level of Service:[id number] ID OFFICE/OUTPATIENT ESTABLISHED LOW MDM 20 [facility]29on 43-51-377309Nxvysywo by: PALMIRA KELLEY on: 01/22/2024 02:27 PM Modules accepted: OrdersNormalUniversity Lutheran HospitalOrders Onlyon 04-31-2002Svxxhl [id number] Brandt,Ruma K 1960 F Date Provider Department Center 01/22/2024 [facility] Family History Problem Relation Age of Onset Breast cancer Mother 65 Cancer Mother Depression Mother Anemia Father Atrial fibrillation Father Diabetes type II Father Hypertension Father Obesity Father Lupus Sister Alcohol abuse Brother Other Niece Migraines Daughter Other Nephew Autoimmune disease Nephew Sudden Neg Hx Aneurysm Neg Hx Family Status - Relation Status Age at Mother Father Sister Brother Niece Alive Daughter Alive Daughter Alive Nephew Alive Neg HxNormalUniversWayne HealthCare Main CampusNatriuretic peptide B [Mass/Vol] Ordered By: Gale Navarro on 41-10-4228Xnjokzdkhke peptide B (Bld) [Mass/Vol] 648.0 pg/mLHigh5-100[facility] CampusTroponin I.cardiac [Mass/volume] in Serum or Plasma by Detection limit <= 0.01 ng/Ordered By: Gale Navarro on 80-65-7154Jgtquvaw I.cardiac DL <= 0.01 ng/mL [Mass/Vol]36.1 pg/mLHigh0.0-15.0[facility] South CampusAlanine aminotransferase [Enzymatic activity/volume] in Serum or PlasmaOrdered By: Barby Chen on 52-60-7411ARP [Catalytic activity/Vol]15 U/L7-52[facility] CampusAlbumin [Mass/volume] in Serum or Plasma by Bromocresol green (BCG) dye binding methoOrdered By: Barby Chen on 08-32-9373Eoxkjfo BCG dye [Mass/Vol] 4.3 g/dL3.5-5.7Fire[facility] Regional Medical CenterAlkaline phosphatase [Enzymatic activity/volume] in Serum or PlasmaOrdered By: Barby Chen on 60-56-2517WES [Catalytic activity/Vol]87 U/A83-500OzrholgekFirelands Regional Medical Center South CampusAspartate aminotransferase [Enzymatic activity/volume] in Serum or PlasmaOrdered By: Barby Chen on 05-76-4998QCX [Catalytic activity/Vol]20 U/Q62-81SsioipxliFirelands Regional Medical Center South CampusBasophils Auto (Bld) [#/Vol]Ordered By: Barby Chen on 29-24-3724Qfgfgiaxm (Bld) [#/Vol]0.1 10*3/uL0.0-0.2FTwin City HospitalBasophils/100 WBC Auto (Bld)Ordered By: Barby Chen on 12-02-2023 Basophils/100 WBC (Bld)0.9 %.[facility] CampusBilirubin.total [Mass/volume] in Serum or PlasmaOrdered By: Barby Chen on 12-02-2023 Bilirubin [Mass/Vol]0.6 mg/dL0.3-1.0[facility] CampusCalcium [Mass/volume] in Serum or PlasmaOrdered By: Barby Chen on 91-25-6501Vofwnyn [Mass/Vol]9.5 mg/dL8.6-10.3FTwin City HospitalCarbon dioxide, total [Moles/volume] in Serum or PlasmaOrdered By: Barby Chen on 12-02-2023 CO2 [Moles/Vol]27.8 mmol/L21.0-31.0[facility] CampusChloride [Moles/volume] in Serum or PlasmaOrdered By: Barby Chen on 12-02-2023 Chloride [Moles/Vol]98 mmol/W07-916UjkuiwzfrFirelands Regional Medical Center South CampusCreatinine [Mass/volume] in Serum or PlasmaOrdered By: Barby Chen on 12-02-2023 Creatinine [Mass/Vol]0.88 mg/dL0.60-1.20[facility] Eosinophils Auto (Bld) [#/Vol]Ordered By: Barby Chen on 12-02-2023 Eosinophils (Bld) [#/Vol]0.0 10*3/uL0.0-0.45[facility] Eosinophils/100 WBC Auto (Bld)Ordered By: Barby Chen on 12-02-2023 Eosinophils/100 WBC (Bld)0.1 %.[facility] CampusErythrocyte distribution width Auto (RBC) [Ratio]Ordered By: Barby Chen on 12-02-2023 Erythrocyte distribution width (RBC) [Ratio]13.3 %11.9-15.3FTwin City HospitalErythrocyte sedimentation rate by Photometric methodOrdered By: Barby Chen on 12-95-5157DKI Photometric method (Bld) [Velocity]37 mm/hrHigh 0-29[facility] CampusGlobulin Calc (S) [Mass/Vol]Ordered By: Barby Chen on 97-59-3624Efasiyoy (S) [Mass/Vol]3.0 g/dLFirelands Regional Medical Center South CampusGlucose [Mass/volume] in Serum or PlasmaOrdered By: Barby Chen on 44-10-5591Bddnirz [Mass/Vol]126 mg/kCTibv97-915ZysuqmzcfFirelands Regional Medical Center South CampusComment on above:ADA recommended reference rangeRandom Glucose Reference Range is dependent on time and content of last meal. Glucose of more than 200 mg/dL in a nonstressed, ambulatory subject supports the diagnosisof Diabetes Mellitus.Hematocrit Auto (Bld) [Volume fraction]Ordered By: Barby Chen on 81-88-3780Ffrntcopzy (Bld) [Volume fraction]45.3 %34.0-46.4FTwin City HospitalHemoglobin [Mass/volume] in BloodOrdered By: Barby Chen on 29-93-2299Tiapgfcama (Bld) [Mass/Vol]15.7 g/nVFmbx28.8-15.4FTwin City HospitalLeukocytes [#/volume] corrected for nucleated erythrocytes in Blood by Automated counOrdered By: Barby Chen on 66-54-0855RBY corrected for nucl RBC Auto (Bld) [#/Vol]7.9 10*3/uL3.8-11.6FTwin City Hospital Lymphocytes Auto (Bld) [#/Vol]Ordered By: Barby Chen on 12-02-2023 Lymphocytes (Bld) [#/Vol]1.2 10*3/uL1.00-4.8[facility] Lymphocytes/100 WBC Auto (Bld)Ordered By: Barby Chen on 12-02-2023 Lymphocytes/100 WBC (Bld)14.9 %.[facility] HospitalH Auto (RBC) [Entitic mass]Ordered By: Barby Chen on 99-71-0343JJR (RBC) [Entitic mass] 31.6 pg24.7-34.3FTwin City HospitalMCHC Auto (RBC) [Mass/Vol] Ordered By: Barby Chen on 19-14-5229AUIX (RBC) [Mass/Vol]34.7 g/dL32.0-35.0 [facility] South CampusMCV Auto (RBC) [Entitic vol]Ordered By: Barby Chen on 34-61-8527TXA (RBC) [Entitic vol]91.1 aJ05-868JfddcjkieFirelands Regional Medical Center South CampusMonocytes Auto (Bld) [#/Vol]Ordered By: Barby Chen on 84-55-6986Jwckpejld (Bld) [#/Vol]0.5 10*3/uL0.0-0.8[facility] CampusMonocytes/100 WBC Auto (Bld)Ordered By: Barby Chen on 12-02-2023 Monocytes/100 WBC (Bld)6.3 %.[facility] South CampusNeutrophils Auto (Bld) [#/Vol]Ordered By: Barby Chen on 80-50-0932Sjmvbzzmnqd (Bld) [#/Vol] 6.2 10*3/uL1.8-7.7FTwin City HospitalNeutrophils/100 WBC Auto (Bld)Ordered By: Barby Chen on 28-11-2733Rytjybunrnw/100 WBC (Bld)77.8 %. [facility] CampusNo Panel InformationOrdered By: Barby Chen on 18-29-2506Swmzaiqmb GFR (CKD-EPI)> 60.0 mL/MinFirelands Regional Medical Center South CampusPharmacy Creatinine Clearance (ChemN/AFTwin City Hospital Nucleated erythrocytes [Presence] in Blood by Automated countOrdered By: Barby Chen on 45-46-4434Sfdgtvqkg RBC Auto Ql (Bld)0.1 /100{WBC}0-0.5FTwin City HospitalPlatelet mean volume Auto (Bld) [Entitic vol]Ordered By: Barby Chen on 80-51-4232Pqtnrafh mean volume (Bld) [Entitic vol]7.6 fL 6.3-10.7FTwin City HospitalPlatelets Auto (Bld) [#/Vol]Ordered By: Barby Chen on 94-49-5584Pgvduvfqm (Bld) [#/Vol]301 10*3/hG659-369YdcjaxfhyFirelands Regional Medical Center South CampusPotassium [Moles/volume] in Serum or PlasmaOrdered By: Barby Chen on 78-51-2875Jlneqthmu [Moles/Vol]4.4 mmol/L3.5-5.1FTwin City HospitalProtein [Mass/volume] in Serum or PlasmaOrdered By: Barby Chen on 64-67-5493Cuckmim [Mass/Vol]7.3 g/dL6.4-8.9[facility] South CampusRBC Auto (Bld) [#/Vol]Ordered By: Barby Chen on 54-84-9144NIR (Bld) [#/Vol]4.97 10*6/uL3.60-5.00Avita Health Systemerum or plasma albumin/globulin mass ratioOrdered By: Barby Chen on 12-02-2023 Albumin/Globulin [Mass ratio]1.4 {ratio}[facility] Health Systemerum or plasma anion gap determinationOrdered By: Barby Chen on 86-86-5594Hrtvz gap [Moles/Vol]9.6 mmol/L6.0-15.0[facility] Systemodium [Moles/volume] in Serum or PlasmaOrdered By: Barby Chen on 4312Pcdyhq [Moles/Vol]131 mmol/XZuu360-068WwysuehidFirelands Regional Medical Center South CampusUrea nitrogen [Mass/volume] in Serum or PlasmaOrdered By: Barby Chen on 74-93-1875Lxzk nitrogen [Mass/Vol]9 mg/dL7-25Fire[facility] South CampusWBC Auto (Bld) [#/Vol]Ordered By: Barby Chen on 69-48-7403WLN (Bld) [#/Vol]7.9 10*3/uL 3.8-11.6FTwin City HospitalAlanine aminotransferase [Enzymatic activity/volume] in Serum or PlasmaOrdered By: Anibal Chaudhary on 20-72-9120QRU [Catalytic activity/Vol]12 U/L7-52[facility] South CampusAlbumin [Mass/volume] in Serum or Plasma by Bromocresol green (BCG) dye binding metho Ordered By: Anibal Chaudhary on [id number] BCG dye [Mass/Vol]4.2 g/dL3.5-5.7 [facility] CampusAlkaline phosphatase [Enzymatic activity/volume] in Serum or PlasmaOrdered By: Anibal Chaudhary on 27-22-8140RKP [Catalytic activity/Vol]79 U/P25-461LdyteizccFirelands Regional Medical Center South CampusAspartate aminotransferase [Enzymatic activity/volume] in Serum or PlasmaOrdered By: Anibal Chaudhary on 76-34-2596JYP [Catalytic activity/Vol]16 U/Q83-91GdokukcbdFirelands Regional Medical Center South CampusBilirubin.total [Mass/volume] in Serum or PlasmaOrdered By: Anibal Chaudhary on 64-48-3887Exzsoehpq [Mass/Vol]0.5 mg/dL0.3-1.0[facility] CampusCalcium [Mass/volume] in Serum or PlasmaOrdered By: Anibal Chaudhary on 96-58-6938Tnpzufd [Mass/Vol]9.1 mg/dL8.6-10.3FTwin City HospitalCarbon dioxide, total [Moles/volume] in Serum or PlasmaOrdered By: Anibal Chaudhary on 32-71-1681UA7 [Moles/Vol]26.2 mmol/L21.0-31.0[facility] CampusChloride [Moles/volume] in Serum or PlasmaOrdered By: Anibal Chaudhary on 48-22-1592Rqvckxhm [Moles/Vol]101 mmol/S01-382SsfzgeatvFirelands Regional Medical Center South CampusCholesterol [Mass/volume] in Serum or PlasmaOrdered By: Anibal Chaudhary on 79-27-1664Fihineovbml [Mass/Vol]162 mg/mA518-351VbsmgjrjtFirelands Regional Medical Center South CampusComment on above:Chol less than 200 mg/dl low riskChol 201-239 mg/dl borderline riskChol 240 mg/dl and greater high riskCholesterol in LDL Calc [Mass/Vol]Ordered By: Anibal Chaudhary on 69-65-6725Arzaqdnvzzw in LDL [Mass/Vol]86 mg/dL0-100Fire[facility] South CampusComment on above:LDL ATP III CLASSIFICATIONLDL less than 100 mg/dL OptimalLDL 100-129 mg/dL Near or above rmialwmIFS611-089 mg/dL Borderline highLDL 160-189 mg/dL HighLDL greater than 189 mg/dL Very highCholesterol in VLDL Calc [Mass/Vol]Ordered By: Anibal Chaudhary on 07-11-7066Wlqrbbfuayr in VLDL [Mass/Vol]20 mg/dLFirelands Regional Medical Center South CampusCreatinine [Mass/volume] in Serum or PlasmaOrdered By: Anibal Chaudhary on 19-35-5683Oexonjfhtu [Mass/Vol]0.94 mg/dL0.60-1.20[facility] CampusGlobulin Calc (S) [Mass/Vol]Ordered By: Anibal Chaudhary on 30-41-2756Cgbizoiw (S) [Mass/Vol]2.6 g/dLFirelands Regional Medical Center South CampusGlucose [Mass/volume] in Serum or PlasmaOrdered By: Anibal Chaudhary on 31-46-3246Hytxgjw [Mass/Vol]130 mg/yBBfvn36-235NpkeomiewFirelands Regional Medical Center South CampusComment on above:ADA recommended reference rangeRandom Glucose Reference Range is dependent on time and content of last meal. Glucose of more than 200 mg/dL in a nonstressed, ambulatory subject supports the diagnosisof Diabetes Mellitus.Glucose mean value [Mass/volume] in Blood Estimated from glycated hemoglobinOrdered By: Anibal Chaudhary on 49-67-8121Xvguovw glucose Estimated from glycated hemoglobin (Bld) [Mass/Vol]123 mg/dLFirelands Regional Medical Center South CampusHemoglobin A1c percentage Ordered By: Anibal Chaudhary on 53-96-7923NaK7i (Bld) [Mass fraction]5.9 %High 4.3-5.6FTwin City HospitalComment on above:Increased risk for diabetes: 5.7 - 6.4diabetes: >6.4glycemic control for adults with diabetes: &l t;7.0No Panel InformationOrdered By: Anibal Chaudhary on 23-31-5927Gurqywzhy GFR (CKD-EPI)> 60.0 mL/MinFirelands Regional Medical Center South CampusPharmacy Creatinine Clearance (ChemN/AFTwin City HospitalPotassium [Moles/volume] in Serum or PlasmaOrdered By: Anibal Chaudhary on 94-62-3269Nyriuithx [Moles/Vol]4.5 mmol/L3.5-5.1FTwin City HospitalProtein [Mass/volume] in Serum or PlasmaOrdered By: Anibal Chaudhary on 05-65-3245Ddeawlb [Mass/Vol]6.8 g/dL6.4-8.9 [facility] Systemerum or plasma albumin/globulin mass ratio Ordered By: Anibal Chaudhary on 52-95-9680Mufcyzk/Globulin [Mass ratio]1.6 {ratio} [facility] Systemerum or plasma anion gap determinationOrdered By: Anibal Chaudhary on 33-29-6735Rdeew gap [Moles/Vol]10.3 mmol/L6.0-15.0[facility] Systemerum or plasma high density lipoprotein (HDL) cholesterol measurementOrdered By: Anibal Chaudhary on 73-35-7247Yooqsyueljl in HDL [Mass/Vol]56 mg/dD38-79MfkedygqmFirelands Regional Medical Center South CampusComment on above:HDL CHOL ATP-III CLASSIFICATION Cardiovascular RiskHDL > or equal to 60 mg/dL LOWHDL < 40 mg/dL HIGHSerum or plasma total cholesterol/high density lipoprotein (HDL) cholesterol mass ratOrdered By: Anibal Chaudhary on 11-03-2023 Cholesterol.total/Cholesterol in HDL [Mass ratio]2.9 {ratio}<5.0[facility] Systemodium [Moles/volume] in Serum or PlasmaOrdered By: Anibal Chaudhary on 98-57-1423Zzocmc [Moles/Vol]133 mmol/LHgp072-362MykqkzgcoFirelands Regional Medical Center South CampusThyrotropin [Units/volume] in Serum or PlasmaOrdered By: Anibal Chaudhary on 88-93-2168CPB Qn1.79 m[IU]/L0.45-5.33[facility] CampusThyroxine (T4) free [Mass/volume] in Serum or PlasmaOrdered By: Anibal Chaudhary on 99-50-2913Post T4 [Mass/Vol]0.92 ng/dL0.61-1.12[facility] CampusTriglyceride [Mass/volume] in Serum or PlasmaOrdered By: Anibal Chaudhary on 74-72-3761Xtaiaerodahr [Mass/Vol]101 mg/dL0-149Fire[facility] South CampusComment on above:TRIG ATP III CLASSIFICATIONTRIG less than 150 mg/dL NormalTRIG 150-199 mg/dL Borderline highTRIG 200-500 mg/dL High TRIG greater than 500 mg/dL Very highStandard traceable to the Center for Disease Co nrtrol and Prevention (CDC) test method.Urea nitrogen [Mass/volume] in Serum or PlasmaOrdered By: Anibal Chaudhary on 10-52-5570Przr nitrogen [Mass/Vol]20 mg/dL7-25 [facility] CampusBasophils Auto (Bld) [#/Vol]on 09-07-2023 Basophils (Bld) [#/Vol]0.1 10 3/uL0.0-0.1FTwin City Hospital Basophils/100 WBC Auto (Bld)on 38-42-4404Znslvlwhx/100 WBC (Bld)1.0 %0.2-2.0 [facility] CampusEosinophils/100 WBC Auto (Bld)on 09-07-2023 Eosinophils/100 WBC (Bld)0.0 %Low0.9-7.0[facility] Erythrocyte distribution width Auto (RBC) [Ratio]on 65-26-2505Lobouyxvyse distribution width (RBC) [Ratio]12.2 %11.0-15.0[facility] Estimated glomerular filtration rate (GFR) non- Americanon 09-07-2023 GFR/1.73 sq M.predicted among non-blacks MDRD (S/P/Bld) [Vol rate/Area] mL/min/{1.73_m2}>=60[facility] CampusGlobulin Calc (S) [Mass/Vol]on 54-64-7530Itcetyow (S) [Mass/Vol]3.6 g/dLFirelands Regional Medical Center South CampusHematocrit Auto (Bld) [Volume fraction]on 95-03-5436Svxhfcjltj (Bld) [Volume fraction]38.5 %36.0-48.0[facility] CampusHemoglobin [Mass/volume] in Bloodon 14-51-0755Hqnvicynbe (Bld) [Mass/Vol]13.3 g/dL12.0-16.0 [facility] CampusLaboratory - Chemistry and Chemistry - challengeon 74-02-5065Cvdqumu [Mass/Vol]3.6 g/dL3.4-5.0[facility] CampusALP [Catalytic activity/Vol]84 U/K43-138MzapabsvxFirelands Regional Medical Center South CampusALT [Catalytic activity/Vol]19 U/S70-48LggaykfalFirelands Regional Medical Center South Campus AST [Catalytic activity/Vol]16 U/Q26-35HnsoavoeoFirelands Regional Medical Center South Campus Bilirubin [Mass/Vol]0.4 mg/dL0.2-1.0[facility] CampusCalcium [Mass/Vol]8.9 mg/dL8.5-10.1FTwin City HospitalChloride [Moles/Vol] 96 mmol/PTyd71-298IebbcqwpqFirelands Regional Medical Center South CampusCO2 [Moles/Vol]31.7 mmol/L 21.0-32.0[facility] CampusCreatinine [Mass/Vol]0.91 mg/dL 0.55-1.02[facility] CampusGFR/1.73 sq M.predicted MDRD (S/P/Bld) [Vol rate/Area]mL/min/{1.73_m2}>=60[facility] CampusGlucose [Mass/Vol]108 mg/dNDvhd39-774TsoxgdqnfFirelands Regional Medical Center South CampusPotassium [Moles/Vol]4.2 mmol/L3.5-5.1FTwin City HospitalProtein [Mass/Vol] 7.2 g/dL6.4-8.2FOhioHealth Shelby Hospitalodium [Moles/Vol]130 mmol/LLow 136-145Fire[facility] CampusUrea nitrogen [Mass/Vol]15.0 mg/dL 7.0-18.0[facility] CampusUrea nitrogen/Creatinine [Mass ratio] 16.5 mg/mgFirelands Regional Medical Center South CampusLaboratory - Hematology and Cell countson 84-37-7239Myxfbmtb granulocytes/100 WBC (Bld)0.3 %0.0-0.5FTwin City HospitalLeukocytes [#/volume] corrected for nucleated erythrocytes in Blood by Automated counon 31-51-5765QRQ corrected for nucl RBC Auto (Bld) [#/Vol]6.3 10 3/uL4.0-11.0[facility] Lymphocytes Auto (Bld) [#/Vol]on 84-27-4054Arbmqrqevqa (Bld) [#/Vol]1.4 10 3/uL 1.2-3.8[facility] CampusLymphocytes/100 WBC Auto (Bld)on 19-47-4699Dstqljrgboj/100 WBC (Bld)22.4 %20.5-60.0[facility] HospitalH Auto (RBC) [Entitic mass]on 89-61-5068FJI (RBC) [Entitic mass]30.9 pg 26.7-34.0[facility] CampusMCHC Auto (RBC) [Mass/Vol]on 17-09-7310ZSHW (RBC) [Mass/Vol]34.5 g/dL29.9-35.2FTwin City HospitalMCV Auto (RBC) [Entitic vol]on 27-92-5866XUZ (RBC) [Entitic vol]89.5 fL 81.0-99.0[facility] CampusMonocytes Auto (Bld) [#/Vol]on 73-95-1374Zevfvbzed (Bld) [#/Vol]0.4 10 3/uL0.3-0.8[facility] CampusMonocytes/100 WBC Auto (Bld)on 71-31-2590Fvhclvawt/100 WBC (Bld)6.6 % 1.7-12.0[facility] CampusNeutrophils Auto (Bld) [#/Vol]on 39-29-0901Hwpfszodwgc (Bld) [#/Vol]4.4 10 3/uL1.4-6.5FTwin City HospitalNeutrophils/100 WBC Auto (Bld)on 62-90-9555Iublrxgjrxc/100 WBC (Bld)69.7 % 43.0-75.0[facility] CampusNo Panel Informationon 09-07-2023 Eosinophils # (Auto)0.0 10 3/uL0.0-0.7FTwin City HospitalImmature Granulocyte # (Auto)0.02 10 3/uL0.00-0.03[facility] Platelet mean volume Auto (Bld) [Entitic vol]on 41-92-3213Zavoquwi mean volume (Bld) [Entitic vol]8.6 fLLow9.5-13.5FTwin City HospitalPlatelets Auto (Bld) [#/Vol]on 97-18-8374Fkimcucmq (Bld) [#/Vol]233 10 3/xY771-549 [facility] CampusRBC Auto (Bld) [#/Vol]on 13-37-3242RRN (Bld) [#/Vol]4.30 10 6/uL4.20-5.40[facility] Systemerum or plasma albumin/globulin mass ratioon 85-21-6772Fssltfs/Globulin [Mass ratio]1.0 {ratio} [facility] Systemerum or plasma anion gap determinationon 93-27-5793Jtxwo gap [Moles/Vol]6.5 mmol/LFTwin City Hospital Basophils Auto (Bld) [#/Vol]on 39-06-2431Dwuwtazox (Bld) [#/Vol]0.1 10 3/uL 0.0-0.1FTwin City HospitalBasophils/100 WBC Auto (Bld)on 45-89-7455Oamzuxqoe/100 WBC (Bld)1.3 %0.2-2.0[facility] Eosinophils/100 WBC Auto (Bld)on 83-89-6482Aewnyleazil/100 WBC (Bld)0.0 %Low 0.9-7.0[facility] CampusErythrocyte distribution width Auto (RBC) [Ratio]on 93-41-4877Eqkvfyhhzyy distribution width (RBC) [Ratio]12.1 % 11.0-15.0[facility] CampusEstimated glomerular filtration rate (GFR) non- Americanon 53-03-5924MDY/1.73 sq M.predicted among non-blacks MDRD (S/P/Bld) [Vol rate/Area]mL/min/{1.73_m2}>=60[facility] CampusHematocrit Auto (Bld) [Volume fraction]on 42-87-2865Vohhwajwwc (Bld) [Volume fraction]40.6 %36.0-48.0[facility] CampusHemoglobin [Mass/volume] in Bloodon 17-13-8170Hkntvdwyyx (Bld) [Mass/Vol]13.8 g/dL12.0-16.0 [facility] CampusLaboratory - Chemistry and Chemistry - challengeon 66-13-8872Qckwqfa [Mass/Vol]8.8 mg/dL8.5-10.1FTwin City HospitalChloride [Moles/Vol]96 mmol/YDwc77-801JrofxniizFirelands Regional Medical Center South CampusCO2 [Moles/Vol]30.6 mmol/L21.0-32.0[facility] Creatinine [Mass/Vol]0.89 mg/dL0.55-1.02[facility] CampusFree T4 [Mass/Vol]0.87 ng/dL0.76-1.46[facility] CampusGFR/1.73 sq M.predicted MDRD (S/P/Bld) [Vol rate/Area]mL/min/{1.73_m2}>=60[facility] CampusGlucose [Mass/Vol]116 mg/lJJysx83-919IglwwptmsFirelands Regional Medical Center South CampusNatriuretic peptide B (Bld) [Mass/Vol]490.0 pg/mL<=900.0[facility] CampusPotassium [Moles/Vol]4.4 mmol/L3.5-5.1FOhioHealth Shelby Hospitalodium [Moles/Vol]133 mmol/SPss929-639UlzwrnfolFirelands Regional Medical Center South CampusTSH Qn4.910 m[IU]/LHigh0.358-3.740[facility] CampusUrea nitrogen [Mass/Vol]20.0 mg/dLHigh7.0-18.0[facility] CampusUrea nitrogen/Creatinine [Mass ratio]22.5 mg/mgFirelands Regional Medical Center South Campus Bilirubin Ql (U)NegativeNEGATIVEFirelands Regional Medical Center South CampusGlucose (U) [Mass/Vol]NegativeNEGATIVEFirelands Regional Medical Center South CampusKetones Ql (U) NegativeNEGKettering Memorial HospitalpH (U)7.0 [pH]5.0-9.0[facility] Systempecific gravity (U) [Rel density]1.0101.005-1.025 [facility] CampusUrobilinogen Qn (U)0.2 {Lenny'U}/dL0.2-1.0 [facility] CampusLaboratory - Hematology and Cell countson 92-35-2205Vbatkgfl granulocytes/100 WBC (Bld)0.5 %0.0-0.5FTwin City HospitalLaboratory - Specimen informationon 96-71-5982Bgidmvdgqa (U)CLEAR CLEARFirelands Regional Medical Center South CampusColor (U)LT. YELLOWYELLOWFirelands Regional Medical Center South CampusLaboratory - Urinalysison 79-88-4086Lbbyitzrx esterase Test strip Ql (U)NegativeNEGATIVEFirelands Regional Medical Center South CampusNitrite Ql (U) NegativeNEGATIVEFirelands Regional Medical Center South CampusProtein Ql (U)NegativeNEG/TRACE [facility] CampusLeukocytes [#/volume] corrected for nucleated erythrocytes in Blood by Automated counon 24-31-6214YZB corrected for nucl RBC Auto (Bld) [#/Vol]7.5 10 3/uL4.0-11.0[facility] Lymphocytes Auto (Bld) [#/Vol]on 69-10-4232Qljoyqhtxri (Bld) [#/Vol]1.6 10 3/uL 1.2-3.8[facility] CampusLymphocytes/100 WBC Auto (Bld)on 83-00-1833Aadvjctuehy/100 WBC (Bld)21.2 %20.5-60.0[facility] HospitalH Auto (RBC) [Entitic mass]on 07-59-8817VVM (RBC) [Entitic mass]31.0 pg 26.7-34.0[facility] HospitalHC Auto (RBC) [Mass/Vol]on 98-39-2910YDVN (RBC) [Mass/Vol]34.0 g/dL29.9-35.2FTwin City HospitalMCV Auto (RBC) [Entitic vol]on 29-43-4929LXT (RBC) [Entitic vol]91.2 fL 81.0-99.0[facility] CampusMonocytes Auto (Bld) [#/Vol]on 95-23-0071Nfghqqgdx (Bld) [#/Vol]0.5 10 3/uL0.3-0.8[facility] CampusMonocytes/100 WBC Auto (Bld)on 87-60-2509Jdvxkdmhz/100 WBC (Bld)6.4 % 1.7-12.0[facility] CampusNeutrophils Auto (Bld) [#/Vol]on 57-39-8286Ucxalxnfbhf (Bld) [#/Vol]5.3 10 3/uL1.4-6.5FTwin City HospitalNeutrophils/100 WBC Auto (Bld)on 98-20-2333Oyiacupdhfj/100 WBC (Bld)70.6 % 43.0-75.0[facility] CampusNo Panel Informationon 08-19-2023 Eosinophils # (Auto)0.0 10 3/uL0.0-0.7FTwin City HospitalImmature Granulocyte # (Auto)0.04 10 3/uLHigh0.00-0.03[facility] Urine Occult BloodTRACE-LNEGATIVEFirelands Regional Medical Center South CampusPlatelet mean volume Auto (Bld) [Entitic vol]on 19-32-8550Iwpvbxlq mean volume (Bld) [Entitic vol]9.0 fLLow9.5-13.5FTwin City HospitalPlatelets Auto (Bld) [#/Vol]on 57-14-7055Hkpbznsdf (Bld) [#/Vol]259 10 3/vT718-371XdkooyluiFirelands Regional Medical Center South CampusRBC Auto (Bld) [#/Vol]on 15-74-8814FDF (Bld) [#/Vol]4.45 10 6/uL 4.20-5.40[facility] Systemerum or plasma anion gap determinationon 93-05-7205Otjzf gap [Moles/Vol]10.8 mmol/LFTwin City HospitalAlanine aminotransferase [Enzymatic activity/volume] in Serum or PlasmaOrdered By: Pam Wagoner on 92-46-0283YAZ [Catalytic activity/Vol]13 U/L 7-52[facility] South CampusAlbumin [Mass/volume] in Serum or Plasma by Bromocresol green (BCG) dye binding methoOrdered By: Pam Wagoner on 07-08-2023 Albumin BCG dye [Mass/Vol]4.7 g/dL3.5-5.7FTwin City Hospital Alkaline phosphatase [Enzymatic activity/volume] in Serum or PlasmaOrdered By: Pam Wagoner on 40-07-5821WCC [Catalytic activity/Vol]72 U/V53-648CnmwhwgymFirelands Regional Medical Center South CampusAspartate aminotransferase [Enzymatic activity/volume] in Serum or PlasmaOrdered By: Pam Wagoner on 81-43-7932BLU [Catalytic activity/Vol] 18 U/W50-60RnxpyriyoFirelands Regional Medical Center South CampusBasophils Auto (Bld) [#/Vol]Ordered By: Pam Wagoner on 13-99-3592Qazrpbbpr (Bld) [#/Vol]0.1 10*3/uL0.0-0.2FTwin City HospitalBasophils/100 WBC Auto (Bld)Ordered By: Pam Wagoner on 14-66-8307Hskpwkcnm/100 WBC (Bld)1.2 %.[facility] Bilirubin.total [Mass/volume] in Serum or PlasmaOrdered By: Pam Wagoner on 78-36-7062Tliimreuu [Mass/Vol]0.3 mg/dL0.3-1.0[facility] Calcium [Mass/volume] in Serum or PlasmaOrdered By: Pam Wagoner on 07-08-2023 Calcium [Mass/Vol]9.9 mg/dL8.6-10.3FTwin City HospitalCarbon dioxide, total [Moles/volume] in Serum or PlasmaOrdered By: Pam Wagoner on 57-77-9795MT3 [Moles/Vol]31.5 mmol/L21.0-31.0[facility] Chloride [Moles/volume] in Serum or PlasmaOrdered By: Pam Wagoner on 07-08-2023 Chloride [Moles/Vol]100 mmol/O20-001QxlcgpushFirelands Regional Medical Center South CampusCreatinine [Mass/volume] in Serum or PlasmaOrdered By: Pam Wagoner on 79-24-9062Rerysroxzs [Mass/Vol]0.96 mg/dL0.60-1.20[facility] CampusEosinophils Auto (Bld) [#/Vol]Ordered By: Pam Wagoner on 95-38-8075Xposxnplkng (Bld) [#/Vol]0.0 10*3/uL0.0-0.45[facility] CampusEosinophils/100 WBC Auto (Bld) Ordered By: Pam Wagoner on 87-09-8444Gyvjtynwtzc/100 WBC (Bld)0.0 %.[facility] CampusErythrocyte distribution width Auto (RBC) [Ratio]Ordered By: Pam Wagoner on 51-73-1601Qcaioytvzmi distribution width (RBC) [Ratio]12.9 % 11.9-15.3FTwin City HospitalFree thyroxine indexOrdered By: Pam Wagoner on 97-83-2952Mxkd T4 index Calc [Mass/Vol]1.81.2-4.9[facility] CampusGlobulin Calc (S) [Mass/Vol]Ordered By: Pam Wagoner on 83-17-5606Fvfcibgr (S) [Mass/Vol]2.8 g/dLFirelands Regional Medical Center South Campus Glucose [Mass/volume] in Serum or PlasmaOrdered By: Pam Wagoner on 07-08-2023 Glucose [Mass/Vol]109 mg/oQ19-062PwpuzmpinFirelands Regional Medical Center South CampusComment on above:ADA recommended reference rangeRandom Glucose Reference Range is dependent on time and content of last meal. Glucose of more than 200 mg/dL in a nonstressed, ambulatory subject supports the diagnosisof Diabetes Mellitus. Hematocrit Auto (Bld) [Volume fraction]Ordered By: Pam Wagoner on 07-08-2023 Hematocrit (Bld) [Volume fraction]43.4 %34.0-46.4FTwin City HospitalHemoglobin [Mass/volume] in BloodOrdered By: Pam Wagoner on 07-08-2023 Hemoglobin (Bld) [Mass/Vol]14.7 g/dL11.8-15.4FTwin City Hospital Leukocytes [#/volume] corrected for nucleated erythrocytes in Blood by Automated counOrdered By: Pam Wagoner on 21-44-5279JZH corrected for nucl RBC Auto (Bld) [#/Vol]6.7 10*3/uL3.8-11.6FTwin City HospitalLymphocytes Auto (Bld) [#/Vol]Ordered By: Pam Wagoner on 24-37-3913Zvlwzfrtqss (Bld) [#/Vol]1.7 10*3/uL1.00-4.8[facility] CampusLymphocytes/100 WBC Auto (Bld) Ordered By: Pam Wagoner on 17-42-3103Gtwwpciozbs/100 WBC (Bld)25.8 %.[facility] Auto (RBC) [Entitic mass]Ordered By: Pam Wagoner on 70-46-4344TZN (RBC) [Entitic mass]31.2 pg24.7-34.3FTwin City HospitalMCHC Auto (RBC) [Mass/Vol]Ordered By: Pam Wagoner on 94-97-9387MIKI (RBC) [Mass/Vol]34.0 g/dL32.0-35.0[facility] CampusMCV Auto (RBC) [Entitic vol]Ordered By: Pam Wagoner on 44-69-5175OFS (RBC) [Entitic vol]92.0 fL 80-100[facility] CampusMonocytes Auto (Bld) [#/Vol]Ordered By: Pam Wagoner on 36-82-6442Agwhoeqfy (Bld) [#/Vol]0.5 10*3/uL0.0-0.8[facility] CampusMonocytes/100 WBC Auto (Bld)Ordered By: Pam Wagoner on 14-77-4126Xdwshtfft/100 WBC (Bld)7.8 %.[facility] Neutrophils Auto (Bld) [#/Vol]Ordered By: Pam Wagoner on 90-24-4173Ulxkvhipopg (Bld) [#/Vol]4.3 10*3/uL1.8-7.7FTwin City HospitalNeutrophils/100 WBC Auto (Bld)Ordered By: Pam Wagoner on 74-06-1868Syybkmcczha/100 WBC (Bld)65.2 %.[facility] CampusNo Panel InformationOrdered By: Pam Wagoner on 73-14-1392Nwpgcluhz GFR (CKD-EPI)> 60.0 mL/MinFirelands Regional Medical Center South CampusFree Thyroxine (T4) Direct7.5 ug/dL4.5-12.0[facility] CampusPharmacy Creatinine Clearance (ChemN/AFTwin City Hospital Nucleated erythrocytes [Presence] in Blood by Automated countOrdered By: Pam Wagoner on 20-15-5209Wvldtxxvc RBC Auto Ql (Bld)0.1 /100{WBC}0-0.5FTwin City HospitalPlatelet mean volume Auto (Bld) [Entitic vol]Ordered By: Pam Wagoner on 31-49-6209Aljwpibe mean volume (Bld) [Entitic vol]7.8 fL6.3-10.7 [facility] CampusPlatelets Auto (Bld) [#/Vol]Ordered By: Pam Wagoner on 90-98-1503Wwuwyfbts (Bld) [#/Vol]278 10*3/vG369-915HjuuaqkgpFirelands Regional Medical Center South CampusPotassium [Moles/volume] in Serum or PlasmaOrdered By: Pam Wagoner on 62-79-8113Uamsghshx [Moles/Vol]4.7 mmol/L3.5-5.1FTwin City HospitalProtein [Mass/volume] in Serum or PlasmaOrdered By: Pam Wagoner on 23-23-3102Jzlleuv [Mass/Vol]7.5 g/dL6.4-8.9[facility] CampusRBC Auto (Bld) [#/Vol]Ordered By: Pam Wagoner on 59-84-0435PAT (Bld) [#/Vol]4.72 10*6/uL3.60-5.00[facility] Systemerum or plasma 25- hydroxycalciferol measurement (mass/volume)Ordered By: Pam Wagoner on 07-08-2023 25-hydroxyvitamin D2 [Mass/Vol]<1.0 ng/mL.[facility] Comment on above:This test was developed and its performance characteristicsdetermined by [facility]. It has not been cleared or approvedby the Food and Drug Administration.Serum or plasma 25-hydroxyvitamin D measurement (mass/volume)Ordered By: Pam Wagoner on 02-75-911313026240-xkphseatoqrwyt D [Mass/Vol] 6.8 ng/mL.[facility] CampusComment on above:Reference Range:All Ages: Target levels 30 - 100Serum or plasma albumin/globulin mass ratioOrdered By: Pam Wagoner on 33-15-2357Emcjnra/Globulin [Mass ratio]1.7 {ratio}[facility] Systemerum or plasma anion gap determinationOrdered By: Pam Wagoner on 02-52-6700Qqenf gap [Moles/Vol]9.2 mmol/L6.0-15.0[facility] Systemerum or plasma calcidiol measurement (mass/volume) Ordered By: Pam Wagoner on 665535-bdqsuvwkwvcinq D3 [Mass/Vol]6.8 ng/mL. [facility] CampusComment on above:This test was developed and its performance characteristicsdetermined by [facility]. It has not been cleared or approvedby the Food and Drug Administration.Performed at: [facility] [id number] [place], [place] [id number] Director: Santos Chahal MD, Phone: [phone] [Moles/volume] in Serum or PlasmaOrdered By: Pam Wagoner on 71-07-7642Yhrssq [Moles/Vol]136 mmol/K353-983UjvusntzqFirelands Regional Medical Center South CampusT3 uptakeOrdered By: Pam Wagoner on 80-69-1826H8CT81 %24-39[facility] CampusTSH DL <= 0.005 mIU/L QnOrdered By: Pam Wagoner on 66-85-5411GDH Qn5.980 m[IU]/L0.450-4.500[facility] Triiodothyronine (T3) [Mass/volume] in Serum or PlasmaOrdered By: Pam Wagoner on 97-63-0838J6 [Mass/Vol]124 ng/lL69-240EekyxeykdFirelands Regional Medical Center South CampusComment on above:Performed at: - [place] [id number] Director: Spencer Martinez PhD, Phone: [phone] nitrogen [Mass/volume] in Serum or PlasmaOrdered By: Pam Wagoner on [id number] nitrogen [Mass/Vol]26 mg/dL7-25[facility] CampusWBC Auto (Bld) [#/Vol]Ordered By: Pam Wagoner on 54-94-1800WYN (Bld) [#/Vol]6.7 10*3/uL3.8-11.6 [facility] CampusProgress Note - Nutritionon [id number] Note - NutritionPt is here today for an initial DM MNT appt. Pt has had diabetes for two years. 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 Pt livesalone and feels lonely sometimes (depressed?). Pt does [...] Nutrition-Related Knowledge Deficit R/T Lack of prior nutrition- related education AEB inconsistent carbohydrate timing, excess simple [...] 2-3 at lunch and supper meals by demonstrationusing plate method. Nutrition Education: Education Materials: Provided material related to calories, carbohydrate distribution, portion sizes, and label reading topics from sources such as Academy of Nutrition and Dietetics, [employer] [facility], Alfa [employer], and [place] [employer]ators. Referral of Care: [...] change behavior to change w goal setting, self- monitoring and/or problem solving. 5. Monitor total energy [...] or pending f/u fo (more content not included)...[facility]on [facility]30-2023 Exam Date/Time: 05/29/2023 13:47 EST Reason for [...] Ruff MD, V. Transcribed by: EUSEBIA Technologist: [facility]ITALRad[facility], Radiologist, - 05/30/2023 Exam Date/Time: 05/29/2023 13:47 [...] MD, V. Transcribed by: EUSEBIA Technologist: [facility] BONE DENSITY DEXAOrdered By: Radiologist Radiology on 72-52-7328[employer] Work Phone: bd Bone Density DEXAon 67-01-3102GB Bone Density DEXA Exam Date/Time: 05/29/2023 13:47 [...] Ruff MD, V. Transcribed by: EUSEBIA Technologist: [facility]BD BONE DENSITY DEXAon 83-82-0511Ildunklor Study observation (narrative)[facility] Consent for Treatmenton 27-14-2929Qdxiygv for Treatment [id number]#1.00TIFCleveland Clinic South Pointe HospitalConsent for [id number]#1.00TIFF [facility] HospitalPhysician Orderon 72-43-4712Glseqjhqv Order [id number]#1.00TIFCleveland Clinic South Pointe HospitalPhysician Referralon 32-19-4665Nvhdewmjd Referral [id number]#1.00TIFCleveland Clinic South Pointe HospitalCalcium [Mass/volume] in Serum or PlasmaOrdered By: Froilan Brown on 07-30-5890Zgagcpr [Mass/Vol]8.8 mg/dL8.6-10.3FTwin City Hospital Carbon dioxide, total [Moles/volume] in Serum or PlasmaOrdered By: Froilan Brown on 33-12-4843OU4 [Moles/Vol]25.8 mmol/L21.0-31.0[facility] CampusChloride [Moles/volume] in Serum or PlasmaOrdered By: Froilan Brown on 59-28-4577Hyilbgxc [Moles/Vol]104 mmol/G06-659AxycnykwuFirelands Regional Medical Center South CampusCreatinine [Mass/volume] in Serum or PlasmaOrdered By: Froilan Brown on 78-19-2095Wvxmzwsvzx [Mass/Vol]0.61 mg/dL0.60-1.20[facility] CampusGlucose [Mass/volume] in Serum or PlasmaOrdered By: Froilan Brown on 33-07-9315Zujdarf [Mass/Vol]113 mg/aY52-844YazjrxfmkFirelands Regional Medical Center South CampusComment on above:ADA recommended reference rangeRandom Glucose Reference Range is dependent on time and content of last meal. Glucose of more than 200 mg/dL in a nonstressed, ambulatory subject supports the diagnosisof Diabetes Mellitus.No Panel InformationOrdered By: Froilan Brown on 27-21-4352Lznvtthel GFR (CKD-EPI)> 60.0 mL/MinFirelands Regional Medical Center South CampusPharmacy Creatinine Clearance (Zbmd659.69[facility] Potassium [Moles/volume] in Serum or PlasmaOrdered By: Froilan Brown on 09-78-6051Vyzanmscr [Moles/Vol]4.3 mmol/L3.5-5.1FOhioHealth Shelby Hospitalerum or plasma anion gap determinationOrdered By: Froilan Brown on 04-68-4175Cnlig gap [Moles/Vol]9.5 mmol/L6.0-15.0[facility] Health Systemodium [Moles/volume] in Serum or PlasmaOrdered By: Froilan Brown on 32-80-1678Zuvzil [Moles/Vol]135 mmol/N725-979HjqtrgjzhFirelands Regional Medical Center South Campus Troponin I.cardiac [Mass/volume] in Serum or Plasma by Detection limit <= 0.01 ng/Ordered By: Froilan Brown on 01-54-8656Yhgskzdn I.cardiac DL <= 0.01 ng/mL [Mass/Vol]7.7 pg/mL0.0-15.0[facility] CampusUrea nitrogen [Mass/volume] in Serum or PlasmaOrdered By: Froilan Brown on 96-90-5159Fvpw nitrogen [Mass/Vol]8 mg/dL7-25Fire[facility] South CampusCBC AUTO DIFFon 14-80-6845LODE #0.1 103/ulNormal0.0-0.1The Providence HospitalComment on above: Performed By: #### CBC #### [facility] [address] [address] [address] Domi SaleemBasophils/100 WBC (Bld)1.2 %Normal0.2-2.0[facility] Comment on above:Performed By: #### CBC #### [facility] [address] [address] [address] Domi Romero #0.3 103/ulNormal0.0-0.7The [facility] HospitalComment on above: Performed By: #### CBC #### [facility] [address] [address] [address] Domi Leeosinophils/100 WBC (Bld)3.8 %Normal0.9-7.0[facility] Comment on above:Performed By: #### CBC #### [facility] [address] [address] [address] Domi Leerythrocyte distribution width (RBC) [Ratio]12.5 %Bbkuff78.0-15.0 The Providence HospitalComment on above:Performed By: #### CBC #### [facility] [address] [address] [address] Domi SaleemHematocrit (Bld) [Volume fraction]42.5 %Gqwbqv54.0-48.0The [facility] HospitalComment on above:Performed By: #### CBC #### [facility] [address] [address] [address] Domi SaleemHemoglobin (Bld) [Mass/Vol]14.6 g/vGNrlbti99.0-16.0The [facility] HospitalComment on above:Performed By: #### CBC #### [facility] [address] [address] [address] Domi Olivera #0.04 10e3/ulCritically high0.00-0.03[facility] Comment on above:Performed By: #### CBC #### [facility] [address] [place] [address] Dr. Domi Olivera %0.6 %Critically high0.0-0.5The [facility] HospitalComment on above:Performed By: #### CBC #### [facility] [address] [place] [address] Dr. Domi De La O #1.3 103/ulNormal1.2-3.8The [facility] HospitalComment on above:Performed By: #### CBC #### [facility] [address] [place] [address] Dr. Domi Olivareshocytes/100 WBC (Bld)18.5 %Critically low20.5-60.0The [facility] HospitalComment on above:Performed By: #### CBC #### [facility] [address] [place] [address] Dr. Domi Montes DIFF REQNONormalThe Providence HospitalComment on above: Performed By: #### CBC #### [facility] [address] [place] [address] Dr. Domi Felipe (RBC) [Entitic mass]31.1 oqHphmpf07.7-34.0The [facility] HospitalComment on above:Performed By: #### CBC #### [facility] [address] [place] [address] Dr. Domi Curiel (RBC) [Mass/Vol]34.4 g/sTZhlwbo60.9-35.2The [facility] HospitalComment on above:Performed By: #### CBC #### [facility] [address] [place] [address] Dr. Domi Curiel (RBC) [Entitic vol]90.4 fFFzmhcn85.0-99.0The [facility] HospitalComment on above:Performed By: #### CBC #### [facility] [address] [place] [address] Dr. Domi Chavez #0.3 103/ulNormal0.3-0.8The [facility] HospitalComment on above:Performed By: #### CBC #### [facility] [address] [place] [address] Dr. Domi Kramerocytes/100 WBC (Bld)4.2 %Normal1.7-12.0[facility] Comment on above:Performed By: #### CBC #### [facility] [address] [place] [address] Dr. Domi FraustoUT #5.0 103/ulNormal1.4-6.5The [facility] HospitalComment on above:Performed By: #### CBC #### [facility] [address] [place] [address] Dr. Domi Fraustoutrophils/100 WBC (Bld)71.7 %Aqwcie90.0-75.0The [facility] HospitalComment on above:Performed By: #### CBC #### [facility] [address] [place] [address] Dr. Domi Kellogglet mean volume (Bld) [Entitic vol]8.6 fLCritically low 9.5-13.5The [facility] HospitalComment on above:Performed By: #### CBC #### [facility] [address] [place] [address] Dr. Domi SaleemPLT265 103/qkOnhzaq530-028O[facility] HospitalComment on above: Performed By: #### CBC #### [facility] [address] [place] [address] Dr. Domi SaleemRBC4.70 106/ulNormal4.20-5.40The [facility] HospitalComment on above:Performed By: #### CBC #### [facility] [address] [place] [address] Dr. Domi SaleemWBC6.9 103/ulNormal4.0-11.0The [facility] HospitalComment on above: Performed By: #### CBC #### [facility] [address] [place] [address] Dr. Domi rAango 14(COMP METB)on 28-15-6627Ryzvhpb [Mass/Vol]3.7 g/dLNormal 3.4-5.0The [facility] HospitalComment on above:Performed By: #### CMP #### [facility] [address] [place] [address] Dr. Domi SaleemAlbumin/Globulin [Mass ratio]0.9 {ratio}NormalThe Providence HospitalComment on above:Performed By: #### CMP #### [facility] [address] [place] [address] Dr. Domi ChenP [Catalytic activity/Vol]101 U/KMjzbkc13-657Agr Providence HospitalComment on above:Performed By: #### CMP #### [facility] [address] [place] [address] Dr. Domi ChenT [Catalytic activity/Vol]15 U/KWglqtf67-58Jys Providence HospitalComment on above:Performed By: #### CMP #### [facility] [address] [place] [address] Dr. Domi Escalante gap [Moles/Vol]11.9 mmol/LNormalThe [facility] Comment on above:Performed By: #### CMP #### [facility] [address] [place] [address] Dr. Domi SaleemAST [Catalytic activity/Vol]16 U/ZOvxcwa36-03Hke Providence HospitalComment on above:Performed By: #### CMP #### [facility] [address] [place] [address] Dr. Domi SaleemBilirubin [Mass/Vol]0.3 mg/dLNormal0.2-1.0[facility] Comment on above:Performed By: #### CMP #### [facility] [address] [place] [address] Dr. Domi SaleemCalcium [Mass/Vol]9.0 mg/dLNormal8.5-10.1[facility] Comment on above:Performed By: #### CMP #### [facility] [address] [place] [address] Dr. Domi SaleemChloride [Moles/Vol]100 mmol/MJejxkj89-744Mgr [facility] Comment on above:Performed By: #### CMP #### [facility] [address] [address] [address] Domi SaleemCO2 [Moles/Vol]29.0 mmol/ZBxhlzi87.0-32.0[facility] Comment on above:Performed By: #### CMP #### [facility] [address] [address] [address] Domi SaleemCreatinine [Mass/Vol]0.69 mg/dLNormal0.55-1.02The [facility] HospitalComment on above:Performed By: #### CMP #### [facility] [address] [place] [address] Dr. Duron ChangEGFR-AF LIBYAN>60Normal>=60The [facility] HospitalComment on above:Performed By: #### CMP #### [facility] [address] [address] [address] Domi LeeGFR-NON AF LIBYAN>60Normal>=60The [facility] HospitalComment on above:Performed By: #### CMP #### [facility] [address] [address] [address] Domi SaleemGlobulin (S) [Mass/Vol]4.2 g/dLNormalThe Providence HospitalComment on above:Performed By: #### CMP #### [facility] [address] [address] [address] Domi SaleemGlucose [Mass/Vol]124 mg/dLCritically wgpl36-031Oxs [facility] HospitalComment on above:Performed By: #### CMP #### [facility] [address] [address] [address] Domi SaleemPotassium [Moles/Vol]4.9 mmol/LNormal3.5-5.1[facility] Comment on above:Performed By: #### CMP #### [facility] [address] [address] [address] Domi SaleemProtein [Mass/Vol]7.9 g/dLNormal6.4-8.2[facility] Comment on above:Performed By: #### CMP #### [facility] [address] [address] [address] Domi SaleemSodium [Moles/Vol]136 mmol/YNhajpa528-473Cku [facility] Comment on above:Performed By: #### CMP #### [facility] [address] [address] [address] Domi SaleemUrea nitrogen [Mass/Vol]9.0 mg/dLNormal7.0-18.0The [facility] HospitalComment on above:Performed By: #### CMP #### [facility] [address] [address] [address] Domi SaleemUrea nitrogen/Creatinine [Mass ratio]13.0 mg/mgNormalThe Providence HospitalComment on above:Performed By: #### CMP #### [facility] [address] [address] [address] Domi Domínguez RATE WESTERGRENon 71-27-4442KEQ RATE21 mm/hrNormal<=30The [facility] HospitalComment on above:Performed By: #### SEDR #### [facility] [address] [address] [address] Domi SaleemCHEMISTRYOrdered By: SYSTEM SYSTEM on 07-56-6035Cyndj gap [Moles/Vol]14 mmol/LNormal6 - 16 mEq/LFTMC RemisolCalcium [Mass/Vol]9.2 mg/dL Normal8.9 - 11.1 mg/dLFT RemisolChloride [Moles/Vol]92 mmol/PEpg830 - 111 mmol/LFTMC RemisolCO2 [Moles/Vol]28 mmol/UMtfcol29 - 31 mmol/LFTMC Remisol Creatinine [Mass/Vol]0.8 mg/dLNormal0.5 - 1.3 mg/dLFT RemisolGFR/1.73 sq M.predicted among blacks MDRD (S/P/Bld) [Vol rate/Area]mL/min/1.73 j5Aqygvq >=59mL/min/1.73 m2FT Chem SGFR/1.73 sq M.predicted among non-blacks MDRD (S/P/Bld) [Vol rate/Area]mL/min/1.73 p1Tghixm>=59mL/min/1.73 m2FT Chem S Glucose [Mass/Vol]108 mg/wUDqltnl56 - 199 mg/dLFTMC RemisolPotassium [Moles/Vol] 4.0 mmol/LNormal3.5 - 5.3 mmol/LFTMC RemisolSodium [Moles/Vol]130 mmol/EZjl876 - 145 mmol/LFTMC RemisolUrea nitrogen [Mass/Vol]16 mg/dLNormal5 - 21 mg/dLFTMC RemisolUrea nitrogen/Creatinine [Mass ratio]20 mg/lyQveqal88 - 20[facility] Remisol HEMATOLOGYOrdered By: Michael Ellsworth on 15-43-4311Crdzfrwqhxk distribution width (RBC) [Ratio]13.2 %Cwoqqw83.9 - 14.2 %[facility] HemeAutoSSHematocrit (Bld) [Volume fraction]42.8 %Vpgxvj01.0 - 46.0 %[facility] HemeAutoSSHemoglobin (Bld) [Mass/Vol]15.1 g/tIQyopxi92.0 - 16.0 gm/dLFTMC HemeAutoSSMCH (RBC) [Entitic mass]31.6 euEfyjxp94.0 - 34.0 pgFTMC HemeAutoSSMCHC (RBC) [Mass/Vol]35.2 g/dL Xswpmi58.4 - 36.0 gm/dLFTMC HemeAutoSSMCV (RBC) [Entitic vol]89.7 sPYegyzf49.0 - 100.0 fLFTMC HemeAutoSSPlatelet mean volume (Bld) [Entitic vol]6.8 fLNormal6.4 - 10.8 fLFTMC HemeAutoSSPlatelets (Bld) [#/Vol]275.0 E9/GTebtqf377.0 - 500.0 E9/L [facility] HemeAutoSSRBC (Bld) [#/Vol]4.8 E12/LNormal4.3 - 5.9 E12/LFTMC HemeAutoSSWBC corrected for nucl RBC Auto (Bld) [#/Vol]7.3 E9/LNormal4.0 - 11.0 E9/LFTMC HemeAutoSSCBC AUTO DIFFon 85-66-2063XN[place] #0.1 103/ulNormal0.0-0.1The [facility] HospitalComment on above:Performed By: #### CBC #### [facility] [address] [address] [address] Domi SaleemBasophils/100 WBC (Bld)0.9 %Normal0.2-2.0[facility] Comment on above:Performed By: #### CBC #### [facility] [address] [address] [address] Domi Romero #0.2 103/ulNormal0.0-0.7The [facility] HospitalComment on above: Performed By: #### CBC #### [facility] [address] [place] [address] Dr. Domi Leeosinophils/100 WBC (Bld)2.4 %Normal0.9-7.0[facility] Comment on above:Performed By: #### CBC #### [facility] [address] [address] [address] Domi Leerythrocyte distribution width (RBC) [Ratio]12.6 %Jqdzth09.0-15.0 The [facility] HospitalComment on above:Performed By: #### CBC #### [facility] [address] [place] [address] Dr. Domi SaleemHematocrit (Bld) [Volume fraction]44.4 %Rinbgn22.0-48.0The [facility] HospitalComment on above:Performed By: #### CBC #### [facility] [address] [place] [address] Dr. Domi SaleemHemoglobin (Bld) [Mass/Vol]15.1 g/pKMmdczr56.0-16.0The [facility] HospitalComment on above:Performed By: #### CBC #### [facility] [address] [place] [address] Dr. Domi Olivera #0.04 10e3/ulCritically high0.00-0.03[facility] Comment on above:Performed By: #### CBC #### [facility] [address] [address] [address] Domi Olivera %0.5 %Normal0.0-0.5The [facility] HospitalComment on above: Performed By: #### CBC #### [facility] [address] [address] [address] Domi De La O #1.6 103/ulNormal1.2-3.8The [facility] HospitalComment on above:Performed By: #### CBC #### [facility] [address] [address] [address] Domi Olivareshocytes/100 WBC (Bld)19.1 %Critically low20.5-60.0The [facility] HospitalComment on above:Performed By: #### CBC #### [facility] [address] [address] [address] Domi Montes DIFF REQNONormalThe Providence HospitalComment on above: Performed By: #### CBC #### [facility] [address] [address] [address] Domi Felipe (RBC) [Entitic mass]31.5 cbYvjevk04.7-34.0The [facility] HospitalComment on above:Performed By: #### CBC #### [facility] [address] [place] [address] Dr. Domi Curiel (RBC) [Mass/Vol]34.0 g/oASdxlom82.9-35.2The [facility] HospitalComment on above:Performed By: #### CBC #### [facility] [address] [place] [address] Dr. Domi Curiel (RBC) [Entitic vol]92.5 kSHkljla20.0-99.0The [facility] HospitalComment on above:Performed By: #### CBC #### [facility] [address] [place] [address] Dr. Domi Chavez #0.5 103/ulNormal0.3-0.8The [facility] HospitalComment on above:Performed By: #### CBC #### [facility] [address] [address] [address] Domi Kramerocytes/100 WBC (Bld)6.1 %Normal1.7-12.0[facility] Comment on above:Performed By: #### CBC #### [facility] [address] [place] [address] Dr. Domi FraustoUT #5.8 103/ulNormal1.4-6.5The [facility] HospitalComment on above:Performed By: #### CBC #### [facility] [address] [place] [address] Dr. Domi Fraustoutrophils/100 WBC (Bld)71.0 %Wtgvqm04.0-75.0The [facility] HospitalComment on above:Performed By: #### CBC #### [facility] [address] [place] [address] Dr. Domi SaleemPlatelet mean volume (Bld) [Entitic vol]8.7 fLCritically low 9.5-13.5The [facility] HospitalComment on above:Performed By: #### CBC #### [facility] [address] [place] [address] Dr. Domi SaleemPLT246 103/nyUgdfty779-348Nzs Providence HospitalComment on above: Performed By: #### CBC #### [facility] [address] [place] [address] Dr. Domi SaleemRBC4.80 106/ulNormal4.20-5.40The [facility] HospitalComment on above:Performed By: #### CBC #### [facility] [address] [place] [address] Dr. Domi SaleemWBC8.2 103/ulNormal4.0-11.0The [facility] HospitalComment on above: Performed By: #### CBC #### [facility] [address] [place] [address] Dr. Domi SaleemGLYCOHEMOGLOBIN A1Con 66-93-0159SZQ RECOMMENDATIONSEE BELOWNormal The Providence HospitalComment on above:Result Comment: ADA RECOMMENDED LIMIT 4.0 - 6.0 ADA THERAPEUTIC TARGET < 7.0 ACTION SUGGESTED > 7.0Performed By: #### A1C #### [facility] [address] [place] [address] Dr. Domi SaleemGlucose [Mass/Vol]117 mg/dLNormalThe Providence HospitalComment on above:Performed By: #### A1C #### [facility] [address] [address] [address] Domi SaleemHbA1c (Bld) [Mass fraction]5.7 %Normal4.5-6.2The [facility] HospitalComment on above:Performed By: #### A1C #### [facility] [address] [place] [address] Dr. Domi SaleemPROF 14(COMP METB)on 39-11-0110Ynaomtu [Mass/Vol]4.0 g/dLNormal 3.4-5.0The [facility] HospitalComment on above:Performed By: #### CMP #### [facility] [address] [place] [address] Dr. Domi SaleemAlbumin/Globulin [Mass ratio]1.1 {ratio}NormalThe Providence HospitalComment on above:Performed By: #### CMP #### [facility] [address] [place] [address] Dr. Domi Parekh [Catalytic activity/Vol]91 U/ACynysf68-928Yqb The Christ Hospitalment on above:Performed By: #### CMP #### [facility] [address] [place] [address] Dr. Domi Dow [Catalytic activity/Vol]16 U/ZPothxp55-90Voa [facility] HospitalComuniversity of [facility] on above:Performed By: #### CMP #### [facility] [address] [place] [address] Dr. Domi Escalante gap [Moles/Vol]10.3 mmol/LNormalThe [facility] Comment on above:Performed By: #### CMP #### [facility] [address] [place] [address] Dr. Domi SaleemAST [Catalytic activity/Vol]24 U/SLmqnka56-73Pgo [facility] HospitalComment on above:Performed By: #### CMP #### [facility] [address] [place] [address] Dr. Domi SaleemBilirubin [Mass/Vol]0.5 mg/dLNormal0.2-1.0[facility] Comment on above:Performed By: #### CMP #### [facility] [address] [place] [address] Dr. Domi SaleemCalcium [Mass/Vol]9.1 mg/dLNormal8.5-10.1[facility] Comment on above:Performed By: #### CMP #### [facility] [address] [place] [address] Dr. Domi SaleemChloride [Moles/Vol]95 mmol/LCritically mhs65-381Ryl [facility] HospitalComment on above:Performed By: #### CMP #### [facility] [address] [place] [address] Dr. Domi SaleemCO2 [Moles/Vol]27.4 mmol/ZRtndde51.0-32.0[facility] Comment on above:Performed By: #### CMP #### [facility] [address] [place] [address] Dr. Domi SaleemCreatinine [Mass/Vol]0.77 mg/dLNormal0.55-1.02The [facility] HospitalComment on above:Performed By: #### CMP #### [facility] [address] [place] [address] Dr. Domi LeeGFR-AF LIBYAN>60Normal>=60The [facility] HospitalComment on above:Performed By: #### CMP #### [facility] [address] [place] [address] Dr. Domi LeeGFR-NON AF LIBYAN>60Normal>=60The [facility] HospitalComment on above:Performed By: #### CMP #### [facility] [address] [place] [address] Dr. Domi SaleemGlobulin (S) [Mass/Vol]3.8 g/dLNormPremier Health Upper Valley Medical CenterComment on above:Performed By: #### CMP #### [facility] [address] [place] [address] Dr. Domi SaleemGlucose [Mass/Vol]141 mg/dLCritically qtnz84-162Ahj [facility] HospitalComment on above:Performed By: #### CMP #### [facility] [address] [address] [address] Domi SaleemPotassium [Moles/Vol]4.7 mmol/LNormal3.5-5.1[facility] Comment on above:Performed By: #### CMP #### [facility] [address] [place] [address] Dr. Domi SaleemProtein [Mass/Vol]7.8 g/dLNormal6.4-8.2[facility] Comment on above:Performed By: #### CMP #### [facility] [address] [place] [address] Dr. Domi SaleemSodium [Moles/Vol]128 mmol/LCritically lgl859-721Rlm [facility] HospitalComment on above:Performed By: #### CMP #### [facility] [address] [place] [address] Dr. Domi SaleemUrea nitrogen [Mass/Vol]14.0 mg/dLNormal7.0-18.0The [facility] HospitalComment on above:Performed By: #### CMP #### [facility] [address] [place] [address] Dr. Domi SaleemUrea nitrogen/Creatinine [Mass ratio]18.2 mg/mgNormalThWVUMedicine Barnesville HospitalComment on above:Performed By: #### CMP #### [facility] [address] [place] [address] Dr. Domi Domínguez RATE WESTERGRENon 30-55-3398DET RATE34 mm/hrCritically high <=30The [facility] HospitalComment on above:Performed By: #### SEDR #### [facility] [address] [place] [address] Dr. Domi Chavez AUTO DIFFon 20-54-4599ZPYV #0.1 103/ulNormal0.0-0.1The [facility] HospitalComment on above:Performed By: #### CBC #### [facility] [address] [address] [address] Domi SaleemBasophils/100 WBC (Bld)1.2 %Normal0.2-2.0[facility] Comment on above:Performed By: #### CBC #### [facility] [address] [address] [address] Domi Romero #0.2 103/ulNormal0.0-0.7The [facility] HospitalComment on above: Performed By: #### CBC #### [facility] [address] [place] [address] Dr. Domi Leeosinophils/100 WBC (Bld)4.0 %Normal0.9-7.0[facility] Comment on above:Performed By: #### CBC #### [facility] Laboratory [address] [place] [address] Dr. Domi Leerythrocyte distribution width (RBC) [Ratio]12.8 %Madkhp74.0-15.0 The [facility] HospitalComment on above:Performed By: #### CBC #### [facility] [address] [place] [address] Dr. Domi SaleemHematocrit (Bld) [Volume fraction]45.2 %Xzjqxo45.0-48.0The [facility] HospitalComment on above:Performed By: #### CBC #### [facility] [address] [address] [address] Domi SaleemHemoglobin (Bld) [Mass/Vol]15.0 g/bWNsglpz27.0-16.0The [facility] HospitalComment on above:Performed By: #### CBC #### [facility] [address] [place] [address] Dr. Domi Olivera #0.02 10e3/ulNormal0.00-0.03The [facility] HospitalComment on above:Performed By: #### CBC #### [facility] [address] [address] [address] Domi Olivera %0.4 %Normal0.0-0.5The [facility] HospitalComment on above: Performed By: #### CBC #### [facility] [address] [address] [address] Domi De La O #1.1 103/ulCritically low1.2-3.8[facility] Comment on above:Performed By: #### CBC #### [facility] [address] [address] [address] Domi Olivareshocytes/100 WBC (Bld)22.8 %Isuueu15.5-60.0The [facility] HospitalComment on above:Performed By: #### CBC #### [facility] [address] [place] [address] Dr. Domi TsaiUAL DIFF REQNONormalThe Providence HospitalComment on above: Performed By: #### CBC #### [facility] [address] [address] [address] Domi Curiel (RBC) [Entitic mass]31.4 jpAdwlkn69.7-34.0The [facility] HospitalComment on above:Performed By: #### CBC #### [facility] [address] [place] [address] Dr. Domi Curiel (RBC) [Mass/Vol]33.2 g/dSZeigez10.9-35.2The [facility] HospitalComment on above:Performed By: #### CBC #### [facility] [address] [place] [address] Dr. Domi Curiel (RBC) [Entitic vol]94.8 cNObxjaz10.0-99.0The [facility] HospitalComment on above:Performed By: #### CBC #### [facility] [address] [place] [address] Dr. Domi hCavez #0.3 103/ulNormal0.3-0.8The [facility] HospitalComment on above:Performed By: #### CBC #### [facility] [address] [address] [address] Domi Kramerocytes/100 WBC (Bld)6.8 %Normal1.7-12.0[facility] Comment on above:Performed By: #### CBC #### [facility] [address] [place] [address] Dr. Domi FraustoUT #3.2 103/ulNormal1.4-6.5The [facility] HospitalComment on above:Performed By: #### CBC #### [facility] [address] [place] [address] Dr. Domi Fraustoutrophils/100 WBC (Bld)64.8 %Gowudr39.0-75.0The [facility] HospitalComment on above:Performed By: #### CBC #### [facility] [address] [place] [address] Dr. Domi SaleemPlatelet mean volume (Bld) [Entitic vol]8.9 fLCritically low 9.5-13.5The [facility] HospitalComment on above:Performed By: #### CBC #### [facility] [address] [place] [address] Dr. Domi SaleemPLT222 103/jrWtsjpt391-135Cwp Providence HospitalComment on above: Performed By: #### CBC #### [facility] [address] [place] [address] Dr. Domi SaleemRBC4.77 106/ulNormal4.20-5.40The [facility] HospitalComment on above:Performed By: #### CBC #### [facility] [address] [place] [address] Dr. Domi SaleemWBC5.0 103/ulNormal4.0-11.0The [facility] on above: Performed By: #### CBC #### [facility] [address] [place] [address] Dr. Domi SaleemPROF 14(COMP METB)on 53-71-7725Mincrch [Mass/Vol]3.6 g/dLNormal 3.4-5.0The [facility] HospitalComment on above:Performed By: #### CMP #### [facility] [address] [address] [address] Domi SaleemAlbumin/Globulin [Mass ratio]1.0 {ratio}NormalThe Providence HospitalComment on above:Performed By: #### CMP #### [facility] [address] [address] [address] Domi ChenP [Catalytic activity/Vol]79 U/JJgmvow25-417Dwk Providence HospitalComment on above:Performed By: #### CMP #### [facility] [address] [address] [address] Domi ChenT [Catalytic activity/Vol]19 U/BNwmffi36-04Yjw Providence HospitalComment on above:Performed By: #### CMP #### [facility] [address] [place] [address] Dr. Domi Silvaon gap [Moles/Vol]10.0 mmol/LNormalThe [facility] Comment on above:Performed By: #### CMP #### [facility] [address] [place] [address] Dr. Domi SaleemAST [Catalytic activity/Vol]13 U/LCritically xgy27-32Ska [facility] HospitalComment on above:Performed By: #### CMP #### [facility] [address] [place] [address] Dr. Domi SaleemBilirubin [Mass/Vol]0.3 mg/dLNormal0.2-1.0[facility] Comment on above:Performed By: #### CMP #### [facility] [address] [place] [address] Dr. Domi SaleemCalcium [Mass/Vol]8.4 mg/dLCritically low8.5-10.1The [facility] HospitalComment on above:Performed By: #### CMP #### [facility] [address] [place] [address] Dr. Domi SaleemChloride [Moles/Vol]101 mmol/RKhcxdj63-732Bad [facility] Comment on above:Performed By: #### CMP #### [facility] [address] [address] [address] Domi SaleemCO2 [Moles/Vol]31.3 mmol/TTfkcgx24.0-32.0[facility] Comment on above:Performed By: #### CMP #### [facility] [address] [address] [address] Domi SaleemCreatinine [Mass/Vol]0.75 mg/dLNormal0.55-1.02The Providence HospitalComment on above:Performed By: #### CMP #### [facility] [address] [address] [address] Duron ChangEGFR-AF LIBYAN>60Normal>=60The Providence HospitalComment on above:Performed By: #### CMP #### [facility] [address] [place] [address] Dr. Domi LeeGFR-NON AF LIBYAN>60Normal>=60The [facility] HospitalComment on above:Performed By: #### CMP #### [facility] [address] [address] [address] Domi SaleemGlobulin (S) [Mass/Vol]3.6 g/dLNormalThe Providence HospitalComment on above:Performed By: #### CMP #### [facility] [address] [address] [address] Domi SaleemGlucose [Mass/Vol]120 mg/dLCritically dvfw06-430Mij Providence HospitalComment on above:Performed By: #### CMP #### [facility] [address] [place] [address] Dr. Domi SaleemPotassium [Moles/Vol]5.3 mmol/LCritically high3.5-5.1The Providence HospitalComment on above:Performed By: #### CMP #### [facility] [address] [address] [address] Domi SaleemProtein [Mass/Vol]7.2 g/dLNormal6.1-8.2[facility] Comment on above:Performed By: #### CMP #### [facility] [address] [address] [address] Domi SaleemSodium [Moles/Vol]137 mmol/OHudban976-560Lss [facility] Comment on above:Performed By: #### CMP #### [facility] [address] [address] [address] Domi SaleemUrea nitrogen [Mass/Vol]20.0 mg/dLCritically high7.0-18.0The [facility] HospitalComment on above:Performed By: #### CMP #### [facility] [address] [address] [address] Domi Caldwell nitrogen/Creatinine [Mass ratio]26.7 mg/mgNormalThe Providence HospitalComment on above:Performed By: #### CMP #### [facility] [address] [address] [address] Domi Domínguez RATE WESTERGRENon 37-05-0016OKM RATE13 mm/hrNormal<=30The Providence HospitalComment on above:Performed By: #### SEDR #### [facility] [address] [place] [address] Dr. Domi SaleemCNOVSPon 72-07-1907BNRVKGKvhos (SP) Office (HEMACL) RUMA CARLTON ([id number]) 1960 F Date Time Provider Department 08/20/18 [...] GRAN CT + CBC (FOR REMOTE [facility] USE) - COMP METABOLIC PANEL - PROTEIN [...] Gilman MD Referring Provider: CARMELITA SINGH JR [[id number]] Allergies As of Date: 08/20/2018 Noted Allergy [...] (FOR REMOTE [facility] USE) [SQRAGCBC] Order #: [id number] FUTURE COMP METABOLIC PANEL [SQCMP] Order #: [id number] FUTURE PROTEIN ELECTROPHORESIS W/INTERP [SQSEPG] Order #: [id number] FUTURE IMMUNOFIXATION SCREEN, SERUM [SQIFESC] Order #: [id number] FUTURE KAPPA/GERMAIN,FREE,SER [SQKLFRS] Order #: [id number] FUTURE LUPUS ANTICOAG PL [SQLUPUSP] Order #: [id number] FUTURE Disposition: Return in about 1 year [...] Encounter Status:Closed by LEDY GILMAN MD on 08/20/18NoMercy Health – The Jewish HospitalKAIon 01-37-7593Ujkmpdm mass concHNO ID: [id number] Author: Ledy Gilman Service: ? Author Type: [...] GRAN CT + CBC (FOR REMOTE [facility] USE) - COMP METABOLIC PANEL - PROTEIN ELECTROPHORESIS W/INTERP - IMMUNOFIXATION SCREEN, SERUM - KAPPA/GERMAIN,FREE,SER - LUPUS ANTICOAG PL 2. 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 Will check labs and see me in follow up - ABS GRAN CT + CBC (FOR REMOTE [facility] USE) - COMP METABOLIC PANEL - PROTEIN ELECTROPHORESIS W/INTERP - IMMUNOFIXATION SCREEN, SERUM - KAPPA/GERMAIN,FREE,SER - LUPUS ANTICOAG PL Ledy Gilman MDNormalCMercy Health [facility] Vital Signs Date TimeVital SignValuePerforming WnqylcrtsVsciflua70-48-5889 15:23-0400Body tjiiod592.48 cmAnibal Chaudhary MD Work Phone: [phone])[address]10-01-2025 15:23-0400 Body mass index (BMI) [Ratio]43.7 kg/o0CnambvAnibal Chaudhary MD Work Phone: [phone])[address]43 [address]10-01-2025 15:23-0400 Body jqdajustpxs15.9 [degF]Anibal Chaudhary MD Work Phone: [phone])[address]143 [address]10-01-2025 15:23-0400 Body hrsail339.52 kgAnibal Chaudhary MD Work Phone: 1(311)[address]10-01-2025 15:23-0400 Diastolic blood mm[Hg]Anibal Chaudhary MD Work Phone: 1(437)[address]10-01-2025 15:23-0400 Heart rate49 /Aleena Chaudhary MD Work Phone: 1(365)[address]10-01-2025 15:23-0400 Respiratory rate18 /Aleena Chaudhary MD Work Phone: [phone])[address]10-01-2025 15:23-0400 SaO2% (BldA) [Mass fraction]95 %Anibal Chaudhary MD Work Phone: [phone]85[facility]10-01-2025 15:23-0400 Systolic blood uemjhmxr58 mm[Hg]Anibal Chaudhary MD Work Phone: [phone])[address] [place], [place] 8554509-30-2025 11:13-0400 Body .48 cmAnibal Chaudhary MD Work Phone: [phone])[address] [place], [place] 8554509-30-2025 11:13-0400 Body mass index (BMI) [Ratio]43.6 kg/t6AmgwxjAnibal Chaudhary MD Work Phone: 1(630)[address] [place], [place] 8554509-30-2025 11:130400 Body kyckyy210.12 Eduin Chaudhary MD Work Phone: [phone] [place], [place] 8554509-30-2025 11:13-0400 Diastolic blood cypomxmv52 mm[Hg]Anibal Chaudhary MD Work Phone: 1(522)[address] [place], [place] 8554509-30-2025 11:13-0400 Heart rate48 /Aleena Chaudhary MD Work Phone: [phone])[address] [place], [place] 8554509-30-2025 11:13-0400 Respiratory rate14 /Aleena Chaudhary MD Work Phone: [phone])[address] [place], [place] 8554509-30-2025 11:13-0400 SaO2% (BldA) [Mass fraction]96 %Anibal Chaudhary MD Work Phone: [phone])[address] [place], [place] 8554509-30-2025 11:13-0400 Systolic blood asqnhhih33 mm[Hg]Anibal Chaudhary MD Work Phone: 1(168)[address] [place], [place] 8554503-07-2025 11:36-0500 Body hqyibb859.48 cmFire[facility]03-07-2025 11:36-0500Body mass index (BMI) [Ratio]46.7 kg/e3OtnauzigdFirelands Regional Medical [facility]03-07-2025 11:36-0500Body vtetmf105.83 kgFirelands Regional Medical [facility]03-07-2025 11:36-0500Diastolic blood lgyebdju22 mm[Hg][facility] 05-28-2024 11:36-0500Heart rate77 /[facility] 05-28-2024 11:36-0500Respiratory rate14 /[facility] 05-28-2024 11:36-7641YoL8% (BldA) [Mass fraction]99 %[facility]03-07-2025 11:36-0500Systolic blood mm[Hg][facility]10-31-2024 10:09-0400Body lontwk908.48 cmMD Anibal Chaudhary Work Phone: [phone]10-31-2024 10:09-0400 Body mass index (BMI) [Ratio]47.9 kg/m2MD Anibal Chaudhary Work Phone: [phone])313-[address] [place], [place] [address]10-31-2024 10:09-0400 Body yicnzv305.95 kgMD Anibal Chaudhary Work Phone: [phone]10-31-2024 10:09-0400 Diastolic blood upolenxp67 mm[Hg]MD Anibal Chaudhary Work Phone: [phone]10-31-2024 10:09-0400 Heart hyrj825 /minMD Anibal Chaudhary Work Phone: [phone]10-31-2024 10:09-0400 SaO2% (BldA) [Mass fraction]99 %MD Anibal Chaudhary Work Phone: [phone]10-31-2024 10:09-0400 Systolic blood xohuwilu644 mm[Hg]MD Anibal Chaudhary Work Phone: [phone]08-05-2024 13:42-0400 Body .48 cmFirelands [facility]08-05-2024 13:42-0400Body mass index (BMI) [Ratio]49.1 kg/n7AooakkdzwFirelands Regional Medical [facility]08-05-2024 13:42-0400Body .01 kgFirelands Regional Medical [facility]08-05-2024 13:42-0400Diastolic blood rocvzadn22 mm[Hg][facility] 10-27-2023 13:42-0400Heart rate91 /[facility] 10-27-2023 13:42-0400Systolic blood tibxonpb496 mm[Hg][facility]05-28-2024 10:39-0400Body yybilq965.48 cmMD Anibal Chaudhary Work Phone: [phone])[address]05-28-2024 10:39-0400 Body mass index (BMI) [Ratio]48.4 kg/m2MD Anibal Chaudhary Work Phone: 1(072)[address]05-28-2024 10:39-0400 Body uwxqot800.2 kgMD Anibal Chaudhary Work Phone: [phone])[address]05-28-2024 10:39-0400 Diastolic blood rfueekli28 mm[Hg]MD Anibal Chaudhary Work Phone: 1(488)[address]05-28-2024 10:39-0400 Heart rate73 /minMD Anibal Chaudhary Work Phone: [phone])[address]05-28-2024 10:39-0400 SaO2% (BldA) [Mass fraction]98 %MD Anibal Chaudhary Work Phone: 1(511)[address]05-28-2024 10:39-0400 Systolic blood ebqhlcnc668 mm[Hg]MD Anibal Chaudhary Work Phone: 1(279)[address]43 [address]02-15-2024 14:56-0500 Body rxdupt600.48 cmMD Anibal Chaudhary Work Phone: [phone])928-[address] [place], [place] 7805802-15-2024 14:56-0500 Body mass index (BMI) [Ratio]42.6 kg/m2MD Anibal Chaudhary Work Phone: [phone] [address]02-15-2024 14:56-0500 Body wygxnh342.74 kgMD Anibal Chaudhary Work Phone: [phone])[address]02-15-2024 14:56-0500 Diastolic blood wugxbsil50 mm[Hg]MD Anibal Chaudhary Work Phone: [facility]02-15-2024 14:56-0500 Heart rate85 /minMD Anibal Chaudhary Work Phone: [facility]02-15-2024 14:56-0500 Systolic blood nlyoupxj195 mm[Hg]MD Anibal Chaudhary Work Phone: [facility]10-06-2023 14:45-0400 Body dftyyf296.48 cmAnibal Chaudhary Other [employer] Other 10-06-2023 14:45-0400Body mass index (BMI) [Ratio] 38.59 kg/r0KlzgvzAnibal Chaudhary Other [facility] Other 10-06-2023 14:45-0400Body hxjwod50.71 kgAnibal Chaudhary Other [employer] Other 10-06-2023 14:45-0400Diastolic blood nzvhxecu37 mm[Hg] Anibal Chaudhary Other [facility] Other 10-06-2023 14:45-8058WxL5% (BldA) [Mass fraction]99 % Anibal Chaudhary Other [employer] Other 10-06-2023 14:45-0400Systolic blood qwblzott501 mm[Hg] Anibal Chaudhary Other [employer] Other 10-03-2023 08:00-0400Body usojyoiparq84.2 [degF]MD Anibal Chaudhary Work Phone: [facility]10-03-2023 08:00-0400 Diastolic blood goyihmjf28 mm[Hg]MD Anibal Chaudhary Work Phone: [facility]10-03-2023 08:00-0400 Heart rate93 /minMD Anibal Chaudhary Work Phone: [facility]10-03-2023 08:00-0400 Respiratory rate18 /minMD Anibal Chaudhary Work Phone: [phone]10-03-2023 08:00-0400 SaO2% (BldA) [Mass fraction]99 %MD Anibal Chaudhary Work Phone: [phone]10-03-2023 08:00-0400 Systolic blood nzorxwdx583 mm[Hg]MD Anibal Chaudhary Work Phone: [phone]10-03-2023 02:42-0400 Body twovyz433.48 cmMD Anibal Chaudhary Work Phone: [phone]10-03-2023 02:42-0400 Body urloml70.4 kg Anibal Chaudhary Work Phone: [phone]47[facility]08-25-2023 13:00-0400 Body .48 cmAnibal Chaudhary Other [employer] Other 08-25-2023 13:00-0400Body mass index (BMI) [Ratio] 39.69 kg/e8JlylbbAnibal Chaudhary Other [employer] Other 08-25-2023 13:00-0400Body lrkhei36.43 kgAnibal Chaudhary Other [employer] Other 08-25-2023 13:00-0400Diastolic blood xhxlxtxo56 mm[Hg] Anibal Chaudhary Other [employer] Other 08-25-2023 13:00-0400Systolic blood zsmheidq849 mm[Hg] Anibal Chaudhary Other [employer] Other 06-22-2023 11:30-0400Body .48 cmAnibal Chaudhary Other [employer] Other 06-22-2023 11:30-0400Body mass index (BMI) [Ratio] 39.14 kg/u2Wcfixj Chaudhary Other [employer] Other 06-22-2023 11:30-0400Body umfluy99.07 kgAnibal Chaparro Other [employer] Other 06-22-2023 11:30-0400Diastolic blood mm[Hg] Anibal Chaudhary Other [employer] Other 06-22-2023 11:30-0400Systolic blood knxcmhes927 mm[Hg] Anibal Chaudhary Other [employer] Other 02-06-2023 09:45-0500Body .48 cmAnibal Chaparro Other [employer] Other 02-06-2023 09:45-0500Body mass index (BMI) [Ratio] 47.55 kg/e0Jqeirf Chaparro Other [employer] Other 02-06-2023 09:45-0500Body meoyeu456.94 kgAnibal Chaudhary Other [employer] Other 02-06-2023 09:45-0500Diastolic blood egnnswsh29 mm[Hg] Anibal Chaudhary Other [employer] Other 02-06-2023 09:45-8061YlU8% (BldA) [Mass fraction]97 % Anibal Chaudhary Other [employer] Other 02-06-2023 09:45-0500Systolic blood euzhxgaa625 mm[Hg] Anibal Chaparro Other [facility] [employer] Other 04-16-2021 07:58-0400Body phzuqg454.02 cmAnibal Chaudhary Work Phone: [facility] [phone] 07:58-0400 Body niqyiy39.06 kgAnibal Chaudhary Work Phone: [facility] Encounters Encounter DateEncounter TypeCare ProviderFacilityStart: 01-17-2025 End: 80-35-9980dqzrtwqsqbKDDH [facility] 01-[facility]2025 End: 86-76-0471Vsvurjd encounter procedureRamy Santacruz MD-Ultrasound [facility] Work Phone: Start: 01-11-2025 End: 62-11-1581yxprmnekgeAcjtfx E Braun MD Work Phone: [phone]-Tewtgiedqx [facility] HospitalStart: 12-99-0525Juxbwbb encounter statusAnibal Chaudhary MD Work Phone: [facility]: 51-23-0972Jyq- patient / Non-visitEhab A [facility] Work Phone: Start: 12-22-2024 End: 67-01-9859flaidbmkciRnmtlv E Braun MD Work Phone: [facility] Work Phone: Start: 12-22-2024 End: 88-78-7594Mcqttjn encounter procedureRamy Santacruz MD-[facility] Work Phone: Start: 12-21-2024 End: 35-16-4063ellxvfoeztCqtddf E Braun MD Work Phone: [facility] Work Phone: Start: 12-21-2024 End: 39-87-3464Vqrzltn encounter procedureAnibal Chaudhary MD-[facility] Work Phone: Start: 12-21-2024 End: 86-96-8088Gsabvrz encounter statusnAibal Chaudhary MDAvita Health Systemtart: 12-14-2024 End: 30-43-9772kuauxqtsjiEFNUUniversity Hospitals Conneaut Medical Centertart: 25-98-1276Ucq-patient / Non-visitMel[facility] Work Phone: Start: 08-31-2024 End: 99-92-1799khqnbhfwmfVBKVUniversity Hospitals Conneaut Medical Centertart: 08-04-2024 End: 83-65-0258rmmdvtlsboNYVP [facility] Healthtart: 61-04-8945ddkrclmawtDZFTEKWUXKCSt. Anthony's Hospitaltart: 07-21-2024 End: 72-95-0162xodzcxeklgETWTDDTFLJLCleveland Clinic [facility] Start: 06-29-2024 End: 71-87-9532jdrimjnseqXIPSUniversity Hospitals Conneaut Medical Centertart: 05-28-2024 End: 10-03-7400ykwnarckybBjuijppqiJ.W. [facility] Work Phone: Start: 05-28-2024 End: 17-59-6215Dihoocr encounter procedureWilliamhoustongwen Physician Group-[facility] Work Phone: Start: 05-26-2024 End: 00-42-1676wshwlrmqftHQTJWNWProMedica Fostoria Community Hospitaltart: 90-50-0572Ovp-patient / Non-visitUn[facility] Work Phone: Start: 05-20-2024 End: 95-15-4031xeebothewpKYXOHXJProMedica Fostoria Community Hospitaltart: 65-05-7405Egd-patient / Non-visitWilliamhoustongwen Physician Group-[facility] Work Phone: Start: 51-66-2759Bvfhqvockf and management of inpatientABHISHEK [facility]tart: 53-42-2217Scz- patient / Non-visitFirhoustons Physician GroupBlanchard [facility] Out[facility] Work Phone: Start: 05-11-2024 End: 82-80-5027Pxcekpdtwv and management of inpatientOMAR [facility] Hospitaltart: 05-11-2024 End: 63-85-3781Tqp-patient / Non-visitFirhoustons Physician [facility] Work Phone: Start: 43-06-9754Fvd-patient / Non-visitFirhoustons Physician GroupNewport [facility] Work Phone: Start: 52-25-9681Urs-patient / Non-visitFirhoustons Physician [facility] Professional [facility] Work Phone: Start: 02-05-2024 End: 09-48-2922mtfvzebqsjABAHVIJ [facility] Start: 01-22-2024 End: 95-86-7802mjznzufandER Anibal Chaudhary Work Phone: [facility] Work Phone: Start: 01-22-2024 End: 46-56-2785Lwvyfkp encounter procedureMD Anibal Chaudhary Work Phone: [facility] Work Phone: Start: 49-22-3618Agl-patient / Non-visitMD Anibal Chaudhary Work Phone: firhoustons [facility] Work Phone: Start: 95-77-2923Vcz-patient / Non-visitMD Anibal Chaudhary Work Phone: [facility] Work Phone: Start: 12-04-2023 End: 72-75-0865cgdujvktotVT Anibal Chaudhary Work Phone: [facility] Work Phone: Start: 12-04-2023 End: 18-80-8085Blrrqgu encounter procedureMD Anibal Chaudhary Work Phone: [facility] [place] Work Phone: Start: 12-02-2023 End: 75-92-1976Aaysccdu ReferredMD Anibal Chaudhary Work Phone: [facility] [place] Work Phone: Start: 12-02-2023 End: 18-39-5380wdsqkjvsmsXQ Anibal Chaudhary Work Phone: [facility] Work Phone: Start: 12-02-2023 End: 83-24-4729Bmifnyn encounter procedureMD nAibal Chaudhary Work Phone: [facility] [place] Work Phone: Start: 11-03-2023 End: 91-14-9245mmtpmcqrlbHT Anibal Chaudhary Work Phone: [facility] Work Phone: Start: 11-03-2023 End: 62-45-3907Ipgpoqr encounter procedureMD Anibal Chaudhary Work Phone: [facility] [place] Work Phone: Start: 10-27-2023 End: 97-92-3817ifmxnlvwzuNhbklwfed [facility] Work Phone: Start: 10-27-2023 End: 92-07-5673Dooewto encounter procedureFirstafford hospital Physician [facility] Work Phone: Start: 21-30-2381Xjp-patient / Non-visitFirstafford hospital Physician [facility] Work Phone: Start: 08-19-2023 End: 48-24-4318qegehtpswsLD Anibal Chaudhary Work Phone: [facility] Work Phone: Start: 08-19-2023 End: 04-18-4768Qsnfkzo encounter procedureMD Anibal Chaudhary Work Phone: [facility] Work Phone: Start: 18-90-1710Vit-patient / Non-visitMD Anibal Chaudhary Work Phone: [facility] [employer] Work Phone: Start: 07-08-2023 End: 96-72-8371yrappuourtDW Anibal Chaudhary Work Phone: [facility] Work Phone: Start: 07-08-2023 End: 69-78-1612Muehcrq encounter procedureMD Anibal Chaudhary Work Phone: [facility]: 06-04-2023 End: 41-02-3787aagbafkcdkZFFWH A POCOSNot AvailableStart: 05-29-2023 End: 95-10-6592ojbmexypquSrcfc A PocosFacility:FTMCStart: 05-29-2023 End: 97-67-6334JdytyzltaKfzqr A Pocos [facility] Start: 05-29-2023 End: 28-34-2819Qdmejnqcp Result EncounterDavid A Pocos DO Work Phone: noms External Department UnsolicitedStart: 05-29-2023 End: 63-70-3037Kepvowkvy Result EncounterDavid A Pocos DO Work Phone: noms External Department UnsolicitedStart: 05-29-2023 End: 23-77-0529gqwfgdpinySQJPFY BRAUNFacility:FTMCStart: 05-29-2023 End: 24-90-0537Xtszoss encounter procedureDavid A Pocos [facility] Start: 05-16-2023 End: 49-64-4529fbievljqlrLCSLL A POCOSNot AvailableStart: 05-08-2023 End: 80-02-5098ywcvdpaawmTE Anibal Chaudhary Work Phone: [facility] Work Phone: Start: 05-08-2023 End: 30-86-8339Aofcdnw encounter procedureMD Anibal Chaudhary Work Phone: [facility] Work Phone: Start: 02-25-2023 End: 39-76-9088mgpojaltlbBS Anibal Chaudhary Work Phone: [facility] Work Phone: Start: 02-25-2023 End: 59-40-3146Sqjlqini ReferredMD Anibal Chaudhary Work Phone: [facility] Work Phone: Start: 02-11-2023 End: 50-94-2538xsujayvdnmPjqqed Braun Other [employer] Other Start: 79-06-1117Oxboiovwg encounterMarelizabeth Bowen [facility]ertart: 12-27-2022 End: 44-09-5024bitlvbdfxcJdxywb Braun Other [employer] Other Start: 64-27-1401Fkmltc outpatient visit 25 minutes Anibla Bowen [facility]art: 12-25-2022 End: 36-51-0866nsfaylefmkChuwvd Braun Other [employer] Other Start: 51-81-0080Gbdfaqipf encounterAnibal Bowen [facility] Centertart: 12-24-2022 End: 18-43-7596Splybcrdmy and management of inpatientMD Anibal Chaudhary Work Phone: [facility] Work Phone: Start: 12-24-2022 End: 31-26-3509vuqkenrteex encounterMD Anibal Chaudhary Work Phone: [facility] Work Phone: Start: 12-20-2022 End: 48-89-3384xbkiaizpvzKoiqwx Braun Other [employer] Other Start: 52-28-7420Ulojfaqal encounterMarcia Andrés [facility]on Medical ClinicStart: 11-15-2022 End: 28-38-0182jhiyyqzwfnUqnyun Chaparro Other [employer] Other Start: 79-16-5479Znzpxl outpatient visit 15 minutes Anibal [facility] ClinicStart: 09-12-2022 End: 81-66-8273mlohuqzttkRvzumy Chaudhary Other [employer] Other Start: 38-03-2872Mdhwju outpatient visit 25 minutes Anibal [facility] ClinicStart: 60-03-9433Qcmnffmki encounterMarcia Andrés Mckeon Medical ClinicStart: 07-04-2022 End: 11-43-6340dolmcdlbglRnxbwy Chaudhary Other [employer] Other Start: 32-95-1953Ysuuoiqnz encounterMarcia Andrés Mckeon Medical ClinicStart: 06-18-2022 End: 68-67-5397fdwuuijwudLdozjbnh Ball Other [employer] Other Start: 03-64-6851Qbhvtgyma encounterBenjamin Tim [facility]on Medical ClinicStart: 05-30-2022 End: 97-33-8660doxrkbzoghVojbvr Braun Other [employer] Other Start: 73-93-9708Ysthiwaes encounterMarelizabeth Mckeon [facility] Emergencytart: 05-27-2022 End: 72-89-6748ubkmipgrjmHZ DOCTOR MISCFacility:K4Lvpgl: 04-29-2022 End: 81-34-8701kvzpkvkmlsGupyff Braun Other [employer] Other Start: 24-45-3053Vcoxpx outpatient visit 15 minutes Anibal ChaudharyOhioHealth Southeastern Medical Centertart: 66-56-4490Ebcfczyfu encounterMarelizabeth ChaudharyRhonda [facility] Centertart: 08-69-0744brvsmjctehGyghswvs:90139Jllvz: 02-11-2022 End: 36-98-6394Grjtcnw encounter procedureDavid A Pocos [facility] Start: 01-07-2022 End: 60-20-3396Dmw-admission assessmentDavid A Pocos [facility] Start: 16-07-0819Amluc health examinationAnibal Chaparro Other [employer] Other Start: 78-01-8022Ycsilexho for general adult medical examination without abnormal findingsDR DOCTOR MISCThe [facility] Westtart: 11-19-2021 End: 93-06-9674aozpnossbtCCHFWP E BRAUNFacility:E4Rripp: 11-19-2021 End: 64-84-5604Oxgcdwvdt for general adult medical examination without abnormal findingsDR DOCTOR MISCFacility:G0Glypd: 07-18-2021 End: 49-80-9376igslmgizqySZ DOCTOR MISCFacility:F4Ovkff: 07-07-2020 End: 05-27-8890Wgnsyzh encounter procedureAnibal Chaudhary Work Phone: -[facility] [place] Procedures DateProcedureProcedure DetailPerforming ClinicianStart: 01-11-2025 Ultrasonography of bilateral kidneysAnibal Chaudhary MD Work Phone: Start: 90-74-5711HY BONE DENSITY DEXADavid A Pocos DO Work Phone: Start: 21-90-7935MCF of headAnibal Chaparro Work Phone: Plan of Treatment DateCare ActivityDetailAuthorStart: 24-98-6260Klkuxex referralCherrington Hospital Work Phone: Start: 90-67-5431QbdfhjeuoFirelands [facility] Start: 34-94-2722SczbjshkaAvita Health Systemtart: 90-55-4987JyaffryblAvita Health Systemtart: 35-13-3041FqrfylvfbAvita Health Systemtart: 41-02-1649Xzeutbgw admissionAvita Health Systemtart: 12-24-2022 [facility] Systemtart: 95-24-5599Fsihe disorder assessment [facility]25-hydroxyvitamin D2 [Mass/volume] in Serum or PlasmaFirelands Regional Medical Center South Campus25-hydroxyvitamin D3 [Mass/volume] in Serum or [facility]25-Hydroxyvitamin D3+25- Hydroxyvitamin D2 [Mass/volume] in Serum or [facility] HospitalComprehensive metabolic 2000 panel - Serum or [facility] HospitalGlucose measurement estimated from glycated hemoglobinFirelands Regional Medical Center South CampusMG Breast - bilateral ScreeningFirelands Regional Medical Center South CampusPatient referralC[facility] Work Phone: Renal function 1999 panel - Serum or [facility] HospitalThyrotropin [Units/volume] in Serum or PlasmaFirelands Regional Medical Center South CampusThyroxine (T4) free index in Serum or Plasma by calculationFirelands Regional Medical Center South CampusThyroxine measurementFirelands Regional Medical Center South CampusTriiodothyronine (T3) [Mass/volume] in Serum or Plasma [facility] CampusTriiodothyronine resin uptake (T3RU) in Serum or [facility] HospitalUS Kidney - bilateralAnaheim [facility] Payers DatePayer CategoryPayerPolicy [id number] [id number] Cross Blue ShieldBCBS ..[id number] 2..1.005808.3.579.2.71470-20-7302Iklvzls2037201 2..1.393362.3.579.2.41272-41-8553Cafmutg2396313 2..1.652540.3.579.2.45845-03-0428Pxlkhan8068808 2..1.231899.3.579.2.98609-04-3657Hppwahl5552839 2..1.389414.3.579.2.05284-24-7227Mddezlb5564319 2..1.835565.3.579.2.742362-20-1708Ljerpsp6018537 2..1.024427.3.579.2.090350-00-2672Vzsghtb7999064 2..840.1.738239.3.579.2.744746-92-2089Rdcmikq3858792 2..840.1.036464.3.579.2.638902-29-3756Wpnmjil66728955 2..0.1.411626.3.579.2.57211-62-8479Iuebfmq40281130 2..0.1.714210.3.579.2.69228-84-7844MscmmicDYE058F87733 3368v06r-261m-5r35-5u4g-15718s1nmgg1Xivblfa Health [id number] rpt84420-5669-50m6-m23h-[id number] 379c3442-x7t9-0viq-[id number] 2..840.1.252482.3.579.2.531 Social History DateTypeDetailFacilityTobacco smoking status NHISUnknown if ever smokedCleveland Clinic Avon HospitalStart: 87-90-0764Hxu Assigned At Memorial HospitalTobacco smoking statusNo Smoking Status [facility] CenterStart: 39-31-8706Wde Assigned At [facility] CenterStart: 12-24-2022 End: 03-67-3791Smrplkc smoking status NHISCurrent some day smokerAultman Alliance Community Hospital CenterStart: 12-27-2022 End: 38-72-4157Xiumxom smoking status NHISSmoker (finding)[facility] CenterStart: 11-84-9968EcmAaxqtp (finding)[facility] Systemtart: 05-16-2023 End: 01-14-9407Mshqmnw smoking status NHISSmokes tobacco daily (finding) [facility] CenterStart: 56-12-3411Gkcxuax smoking status NHISEx- smoker (finding)[facility] CampusHistory of tobacco useCigarette SmokerNOCT HealthcareStart: 51-63-2450Liwafofaq beverage intakeLifetime non- drinker (finding)[facility] HealthcareStart: 00-45-7345Xunrcwm of Social functionNOMS HealthcareStart: 25-21-5922Bbn assigned at birthNot on fileNOCT HealthcareStart: 34-19-7223CsoKcepgcVXTV Healthcare Goals DatePatient GoalDesired Activity/State Functional Status UdfsKoqqagftfaNtidzrDywhnilc19-64-7375Ufyudhpiiv statusPatient at Baseline [facility] Work Phone: Mental Status PvcrIkmhurngkjLvzhxmXnzhhzmo35-18-7094Lkfzqccpw functionCognitive Status Patient at BaselineCleveland Clinic Avon Hospital Work Phone: Clinical Notes 04-29-2022 to 01-11-2025 Note Date & ZkvzWfazBtuiqdtx50-24-2768 Radiology Diagnostic study noteCHIL[facility] [place] [address] Ultrasound Report Signed Patient: Ruma Carlton MR#: [id number] : 1960 Acct:[id number] Age/Sex: 64 / F ADM Date: 5 Loc: Room: Type: [facility] [address] Attending Dr: Ramy Santacruz MD Ordering Provider: [...] Mckeon M.D. 01/11/2025 1:54 PM Dictation Location: [place] [address] Tech: Ghazala Durham Transcribed By: CHRISTIAN 01/11/25 1354 Dictated By: Prosper Mckeon DO 01/11/25 1353 Signed By: 01/11/25 1354 [facility]10-08-2025 NoteSara from [facility] made us aware of patient's 5# weight gain over the weekend. Says she took an extra lasix tablet. Currently taking lasix 40mg bid and spironolactone 12.5mg daily. I ordered labs to see if renal function would allow for increase in lasix. Will update Dr. Johnson once lab results are received.[facility]09-30-2025 Evaluation note* Diagnosis Onset Date Resolution Status Admit Date Abnormal TSH acuteSeptember 2024 11:25amCOPD (chronic obstructive pulmonary disease) acuteSeptember 2024 11:25amDyspnea on exertionacuteSept2024 11:25amScreening mammogram for breast canceracuteSept2024 11:25amCAD (coronary artery disease)acuteOctober 2024 3:21pm [facility] Work Phone: 1(532) 392-525309-30-2025 Evaluation note* Diagnosis Onset Date Resolution Status Admit Date Abnormal TSH acuteSeptember 2024 11:25amCOPD (chronic obstructive pulmonary disease) acuteSeptember 2024 11:25amDyspnea on exertionacuteSept2024 11:25amScreening mammogram for breast canceracuteSept2024 11:25am Type 2 diabetes mellitus with diabetic chronic kidney diseaseacuteSept2024 11:25amWellness examinationacuteSept2024 11:25amCAD (coronary artery disease)acuteOctober 2024 3:21pmCKD (chronic kidney disease) stage 3, GFR 30-59 ml/minacuteOctober 2024 3:21pmHyperlipidemia acuteOctober 2024 3:21pmHypertensive chronic kidney disease with stage 1 through stage 4 chronic kiacuteOctober 2024 3:21pmSecondary hyperparathyroidismacuteOctober 2024 3:21pmType 2 diabetes mellitus with diabetic chronic kidney diseaseacuteOctober 2024 3:21pm [facility] Work Phone: 1(307) 527-634809-23-2025 NoteUT Electrophysiology Consult Note [place] Cardiology [facility] Reason for visit: Palpitations 12/14/24 Patient is here today for a [...] PCI to distal RCA. Although there were residual stenosis from SVG graft insertion to OM 2 [...] LAUREN clip) in November 2023, hypothyroidism, paroxysmal A-fib, diabetes mellitus type 2, hyperlipidemia, tobacco abuse, morbid obesity with a BMI of 51 who has previously been seen by Francie Pedraza. She has endorsed history of ongoing shortness of breath and fatigue as well as accompanying chest discomfort with intermittent palpitations. This has been an ongoing issue with on and off throughout the day and with no specific correlation to activity. [...] appreciation of a P wave makes A-fib less likely although cannot be excluded. Occasional PVCs were also seen. PMH: Past Medical History: Diagnosis Date Abnormal ECG Arrhythmia Atrial fibrillation (CMS/HCC) CHF (congestive heart failure) (CMS/HCC) Coronary artery disease Diabetes mellitus (CMS/HCC) approx 2019 Disease of thyroid gland august 2023 Hyperlipidemia Hypertension unknown, ok now Pulmonary embolism (CMS/HCC) PSH: Past Surgical History: Procedure Laterality Date CARDIAC [...] Year: No Utilities: Not At Risk (05/11/2024) [facility] Utilities Threatened with loss of utilities: No Health Literacy: Not on file Allergies: Allergies Allergen Reactions Codeine Other Metoclopramide Unknown Other Reaction(s): Intolerance, involuntary movements, other Metoclopramide Hcl Other Sulfa (Sulfonamide Antibiotics) Other Weight: 107kg Visit Vitals BP 100/62 (BP Location: Left arm, Patient Position: Sitting) Pulse 55 Ht 1.549 m (5' 1 ) Wt 107 kg (235 lb) LMP (LMP Unknown) SpO2 96% BMI 44.40 kg/m??? OB Status Postmenopausal Smoking Status Former BSA 2.15 m??? Meds: Current Outpatient Medications on File Prior to Visit Medication Sig Dispense Refill amiodarone (Pacerone) 200 mg tablet TAKE 2 TABLETS BY MOUTH TWO TIMES DAILY FOR 14 DAYS, THEN 1 TABLET IN THE MORNING. 132 tablet 1 clopidogrel (Plavix) (more content not included)...[facility]06-10-2025 NoteUT Electrophysiology Consult Note [place] Cardiology [facility] Reason for visit: Palpitations 08/31/2024 Patient is here today for a 2 month follow up for amiodrone load. Patient states she if feeling better with the amiodarone. Patient states she still has palpitations, SOB, LOPEZ, fatigue and leg swelling and can still feel it when she goes into A-Fib. She underwent the cardiac cath on 07/21/2024 and had PCI to distal RCA. Although there were residual stenosis from SVG graft insertion to OM 2 with a 80 to 90% stenosis and the retrograde portion of the LAD had 80% stenosis beyond the FORD graft with evidence of mild pulmonary hypertension with a pressures of 36 mmHg with normal left and right heart filling pressures Review of Systems Cardiovascular: Positive for chest pain, dyspnea on exertion and palpitations. Respiratory: Positive for shortness of breath. HPI: Ruma Carlton is a 63 y.o. year old with past medical history of CAD s/p CABG x 3 (Cryo Maze_ LAUREN clip) in November 2023, hypothyroidism, paroxysmal A-fib, diabetes mellitus type 2, hyperlipidemia, tobacco abuse, morbid obesity with a BMI of 51 who has previously been seen by Francie Pedraza. She has endorsed history of ongoing shortness of breath and fatigue as well as accompanying chest discomfort with intermittent palpitations. This has been an ongoing issue with on and off throughout the day and with no specific correlation to activity. [...] appreciation of a P wave makes A-fib less likely although cannot be excluded. Occasional PVCs were also seen. PMH: Past Medical History: Diagnosis Date Abnormal ECG Arrhythmia Atrial fibrillation (CMS/HCC) CHF (congestive heart failure) (CMS/HCC) Coronary artery disease Diabetes mellitus (CMS/HCC) 2019 Disease of thyroid gland august 2023 Hyperlipidemia Hypertension unknown, ok now Pulmonary embolism (CMS/HCC) PSH: Past Surgical History: Procedure Laterality Date CARDIAC CATHETERIZATION mid CORONARY ARTERY BYPASS GRAFT CORONARY STENT PLACEMENT HAND SURGERY 02/2022 SH: Social Determinants of Health Tobacco Use: Medium Risk (08/31/2024) Patient History Smoking Tobacco Use: Former Smokeless [...] Year: No Utilities: Not At Risk (05/11/2024) [facility] Utilities Threatened with loss of utilities: No Health Literacy: Not on file Allergies: Allergies Allergen Reactions Codeine Other Metoclopramide Hcl Other Sulfa (Sulfonamide Antibiotics) Other Weight: 111kg Visit Vitals BP 111/66 (BP Location: Left arm, Patient Position: Sitting) Pulse 51 Ht 1.549 m (5' 1 ) Wt 111 kg (245 lb) LMP (LMP Unknown) SpO2 95% BMI 46.29 kg/m??? OB Status Postmenopausal Smoking Status Former BSA 2.19 m??? Meds: Current Outpatient Medications on File Prior to Visit Medication Sig Dispense Refill amiodarone (Pacerone) 200 mg tablet Take 2 tablets (400 mg) by mouth two times daily for 14 days, THEN 1 tablet (200 mg) in the morning. 146 tablet 0 clopidogrel (Plavix) 75 mg tablet Take 1 tablet (75 mg) by mouth in the morning. 90 tablet 3 dapagliflozin propanediol (Farxiga) 10 mg Take 1 tablet (10 mg) by mouth once daily as directed. 90 tablet 3 furosemide (Lasix) 40 mg tablet Take 1 tablet (40 mg) by mouth before breakfast. (Patient taking differently: Take 40 mg by mouth two times daily.) 90 tablet 3 lamoTRIgine (LaMICtal) 200 mg tablet Take 1 tablet by mouth in the evening. levothyroxine (Synthroid, Levoxyl (more content not included)...[facility]05-14-2025 NoteCardiovascular Medicine [facility] SUBJECTIVE Ruma Carlton is a 63 y.o. female here for 2 week follow up PCI x 1. Patient states she is still SOB and dyspnea with activity, palpitations, right sided chest pain occurs with SOB and fatigue. Patient states her leg swelling is greatly reduced at this time. HPI PMHx: chronic congestive diastolic heart failure, coronary heart disease status post CABG x 3 in November 2023, hypothyroidism, paroxysmal atrial fibrillation, type 2 diabetes mellitus, hyperlipidemia, nicotine dependence, morbid obesity with BMI of 51.02 05/26/2024 She has ongoing LOPEZ and fatigue. Improvement in her leg swelling is hard to tell. She has some midsternal/right sided chest pain. This has been present since even before her surgery. This occurs after she exerts herself. Resolves when she sits down to rest. She has intermittent palpitations. Occurs on and off throughout the day, occur at rest or with exertion. She is currently wearing heart monitor. She denies orthopnea, PND, dizziness/LH, syncope. 05/20/2024 Her weight has been stable. Averaging 257-258 #. She feels like her LOPEZ is still worse than her baseline. She has noticed some increased leg swelling since her discharge. Denies CP, orthopnea, PND, syncope. UPDATE 08/04/2024 His shortness of breath is improved after PCI and stent placement. She still gets residual shortness of breath however she is obese and she used to be a smoker. She denies blood in the urine or stools. She went to the emergency room soon after catheterization for what she describes as a panic attack . Inpatient HPI: Ruma Carlton is a 63 y.o. female with a past medical history significant for chronic congestive diastolic heart failure, coronary heart disease status post CABG x 3 on November 2023, hypothyroidism, paroxysmal atrial fibrillation, type 2 diabetes mellitus, hyperlipidemia, nicotine dependence, morbid obesity with BMI of 51.02. Patient presented to [facility] from [facility] ER for possible heart catheterization. Patient presented to the [facility] ER on 05/10 with complaints of gradually progressive shortness of breath for 1-2 weeks. Patient endorsed exertional shortness of breath and weight gain of 4 at least 10 pounds. Endorsed bilateral lower extremity edema for the past few weeks. Workup at [facility] demonstrated elevated BNP, elevated troponin and EKG showing NSTEMI. Patient was admitted to the ICU at [facility] overnight and was placed on heparin drip. Patient denied any chest pain/discomfort, palpitation. Patient presented with shortness of breath. Vitals are unremarkable. Labs notable for troponin 0.06, BNP 537. EKG showed sinus tachycardia. Last echo showed showed EF of 65-70% with no regional WMA(12/21/2023). Patient was treated with GDMT. Cardiology was consulted for management of HF excerbation. Patient Active Problem List Diagnosis Primary pulmonary hypertension (CMS/HCC) Chronic pulmonary heart disease (CMS/HCC) Benign essential hypertension Chest pain Dyspnea Infarction of lung due to iatrogenic pulmonary embolism (CMS/HCC) Morbid obesity (CMS/HCC) Obstructive sleep apnea syndrome Palpitations Pulmonary embolism (CMS/HCC) Supraventricular tachycardia POTS (postural orthostatic tachycardia syndrome) Autonomic neuropathy Rheumatoid arthritis (CMS/HCC) Diabetes mellitus type II, non insulin dependent (CMS/HCC) LOPEZ (dyspnea on exertion) Unstable angina (CMS/HCC) Coronary artery disease involving [place] coronary artery of [place] heart without angina pectoris Multi-vessel coronary artery stenosis Multiple vessel coronary artery disease Status post four vessel coronary artery bypass Anxiety Insomnia Acute on chronic congestive heart failure, unspecified heart failure type (CMS/HCC) NSTEMI (non-ST elevated myocardial infarction) (CMS/HCC) Fluid overload Hypothyroidism Mood disorder Abnormal stress test Coronary artery disease Abnormal findings on diagnostic imaging of heart and coronary circulation Past Medical History: Diagnosis Date Abnormal ECG Arrhythmia Atrial fibrillation (CMS/HCC) CHF (congestive heart failure) (CMS/HCC) Coronary artery disease Diabetes mellitus (CMS/HCC) approx 2019 Disease of thyroid gland august 2023 Hyperlipidemia Hypertension unknown, ok now Pulmonary embolism ([facility]/HCC) Family History Problem Relation Name Age of Onset Breast cancer Mother Lupe TorresDijohnny 65 Cancer Mother Lupe TorresDijohnny Depression Mother Lupe Amin Anemia Father Ledy TorresRod Atrial fibrillation Father Ledy TorresRod Diabetes type II Father Ledy TorresRod Hypertension Father Ledy TorresRod Obesity Father Ledy TorresRod Lupus Sister Alcohol abuse Brother Other (POTS) Niece Migraines Daughter Other (POTS) Nephew Autoimmune disease Nephew Sudden (more content not included)...[facility] 06-29-2024 NoteUT Electrophysiology Consult Note [place] Cardiology [facility] Reason for visit: Palpitations HPI: Ruma Carlton is a 63 y.o. year old with past medical history of CAD s/p CABG x 3 (Cryo Maze_ LAUREN clip) in November 2023, hypothyroidism, paroxysmal A-fib, diabetes mellitus type 2, hyperlipidemia, tobacco abuse, morbid obesity with a BMI of 51 who has previously been seen by Francie Pedraza. She has endorsed history of ongoing shortness of breath and fatigue as well as accompanying chest discomfort with intermittent palpitations. This has been an ongoing issue with on and off throughout the day and with no specific correlation to activity. [...] appreciation of a P wave makes A-fib less likely although cannot be excluded. Occasional PVCs were also seen. PMH: Past Medical History: Diagnosis Date Abnormal ECG Arrhythmia Atrial fibrillation (CMS/HCC) CHF (congestive heart failure) (CMS/HCC) Coronary artery disease Diabetes mellitus (CMS/HCC) approx 2019 Disease of thyroid gland august 2023 Hyperlipidemia Hypertension unknown, ok now Pulmonary embolism (CMS/HCC) PSH: Past Surgical History: Procedure Laterality Date CARDIAC CATHETERIZATION mid CORONARY ARTERY BYPASS GRAFT HAND SURGERY 02/2022 SH: Social Determinants of Health Tobacco Use: Medium Risk (06/29/2024) Patient History Smoking Tobacco Use: Former Smokeless [...] Year: No Utilities: Not At Risk (05/11/2024) [facility] Utilities Threatened with loss of utilities: No Health Literacy: Not on file Allergies: Allergies Allergen Reactions Codeine Other Metoclopramide Hcl Other Sulfa (Sulfonamide Antibiotics) Other Weight: 112kg Visit Vitals BP 107/66 (BP Location: Right arm, Patient Position: Sitting) Pulse 75 Ht 1.549 m (5' 1 ) Wt 112 kg (248 lb) LMP (LMP Unknown) SpO2 96% BMI 46.86 kg/m??? OB Status Postmenopausal Smoking Status Former BSA 2.2 m??? Meds: Current Outpatient Medications on File Prior to Visit Medication Sig Dispense Refill aspirin 81 mg EC tablet Take 81 mg by mouth in the morning. dapagliflozin propanediol (Farxiga) 10 mg Take 1 tablet (10 mg) by mouth once daily as directed. 90 tablet 3 furosemide (Lasix) 40 mg tablet Take 1 tablet (40 mg) by mouth before breakfast. (Patient taking differently: Take 40 mg by mouth two times daily.) 90 tablet 3 lamoTRIgine (LaMICtal) 200 mg tablet Take 1 tablet by mouth in the morning. levothyroxine (Synthroid, Levoxyl) 50 mcg tablet Take [...] tablet 3 venlafaxine XR (Effoxor-XR) 150 mg (more content not included)...[facility]03-05-2025 NoteCardiovascular Medicine [facility] SUBJECTIVE Chief Complaint Patient presents with Leg Swelling Shortness of Breath Congestive Heart Failure Coronary Artery Disease Ruma Carlton is a 63 y.o. female here for hospital follow-up. HPI PMHx: chronic congestive diastolic heart failure, coronary heart disease status post CABG x 3 in November 2023, hypothyroidism, paroxysmal atrial fibrillation, type 2 diabetes mellitus, hyperlipidemia, nicotine dependence, morbid obesity with BMI of 51.02 05/26/2024 She has ongoing LOPEZ and fatigue. Improvement in her leg swelling is hard to tell. She has some midsternal/right sided chest pain. This has been present since even before her surgery. This occurs after she exerts herself. Resolves when she sits down to rest. She has intermittent palpitations. Occurs on and off throughout the day, occur at rest or with exertion. She is currently wearing heart monitor. She denies orthopnea, PND, dizziness/LH, syncope. 05/20/2024 Her weight has been stable. Averaging 257-258 #. She feels like her LOPEZ is still worse than her baseline. She has noticed some increased leg swelling since her discharge. Denies CP, orthopnea, PND, syncope. Inpatient HPI: Ruma Carlton is a 63 y.o. female with a past medical history significant for chronic congestive diastolic heart failure, coronary heart disease status post CABG x 3 on November 2023, hypothyroidism, paroxysmal atrial fibrillation, type 2 diabetes mellitus, hyperlipidemia, nicotine dependence, morbid obesity with BMI of 51.02. Patient presented to [facility] from [facility] ER for possible heart catheterization. Patient presented to the [facility] ER on 05/10 with complaints of gradually progressive shortness of breath for 1-2 weeks. Patient endorsed exertional shortness of breath and weight gain of 4 at least 10 pounds. Endorsed bilateral lower extremity edema for the past few weeks. Workup at [facility] demonstrated elevated BNP, elevated troponin and EKG showing NSTEMI. Patient was admitted to the ICU at [facility] overnight and was placed on heparin drip. Patient denied any chest pain/discomfort, palpitation. Patient presented with shortness of breath. Vitals are unremarkable. Labs notable for troponin 0.06, BNP 537. EKG showed sinus tachycardia. Last echo showed showed EF of 65-70% with no regional WMA(12/21/2023). Patient was treated with GDMT. Cardiology was consulted for management of HF excerbation. Patient Active Problem List Diagnosis Primary pulmonary hypertension ([facility]/HCC) Chronic pulmonary heart disease ([facility]/HCC) Benign essential hypertension Chest pain Dyspnea Infarction of lung due to iatrogenic pulmonary embolism (CMS/HCC) Morbid obesity ([facility]/HCC) Obstructive sleep apnea syndrome Palpitations Pulmonary embolism ([facility]/HCC) Supraventricular tachycardia POTS (postural orthostatic tachycardia syndrome) Autonomic neuropathy Rheumatoid arthritis ([facility]/HCC) Diabetes mellitus type II, non insulin dependent ([facility]/HCC) LOPEZ (dyspnea on exertion) Unstable angina ([facility]) Coronary artery disease involving [place] coronary artery of [place] heart without angina pectoris Multi-vessel coronary artery stenosis Multiple vessel coronary artery disease Status post four vessel coronary artery bypass Anxiety Insomnia Acute on chronic congestive heart failure, unspecified heart failure type ([facility]/HCC) NSTEMI (non-ST elevated myocardial infarction) ([facility]) Fluid overload Hypothyroidism Mood disorder Past Medical History: Diagnosis Date Abnormal ECG Arrhythmia Atrial fibrillation ([facility]/HCC) CHF (congestive heart failure) ([facility]) Coronary artery disease Diabetes mellitus ([facility]/HCC) approx 2019 Disease of thyroid gland august 2023 Hyperlipidemia Hypertension unknown, ok now Pulmonary embolism ([facility]) Family History Problem Relation Name Age of Onset Breast cancer Mother Lupe Amin 65 Cancer Mother Lupe Amin Depression Mother Lupe Amin Anemia Father Ledy Amin Atrial fibrillation Father Ledy Amin Diabetes type II Father Ledy Amin Hypertension Father Ledy Amin Obesity Father Ledy Amin Lupus Sister Alcohol abuse Brother Other (POTS) Niece Migraines Daughter Other (POTS) Nephew Autoimmune disease Nephew Sudden Neg Hx Aneurysm Neg Hx Social History Tobacco Use Smoking status: Former Current packs/day: 1.00 Average packs/day: 1 pack/day for 40.0 years (40.0 ttl pk-yrs) Types: Cigarettes Smokeless tobacco: Never Substance Use Topics Alcohol use: Yes Comment: maybe every 2 or 3 months I have one while out Drug use: Not Currently Types: Marijuana Comment: occasionally, maybe every month or two Allergies Allergen Reactions Codeine Other Metoclopramide Hcl Other Sulfa (Sulfonamide Antibiotics) (more content not included)...[facility]03-05-2025 NotePatient here for 1 week follow up. Lasix was increased to 40mg bid last week. She was switched to rosuvastatin from atorvastatin - with plan for CMP/LIPID in July 2024. She's down 2# since last visit. Says LE are hard as rocks by evening. Still wearing 30 day event monitor. Review of Systems Cardiovascular: Positive for dyspnea on exertion, leg swelling (L > R) and palpitations (with exertion). Respiratory: Positive for cough. Musculoskeletal: Positive for muscle weakness. Neurological: Positive for excessive daytime sleepiness. All other systems reviewed and are negative.[facility] 05-20-2024 NotePatient here for follow up [facility]. She was started on Entresto and Farxiga. Atorvastatin was stopped and she isn't sure why. C/o SOB and palpitations with exertion. Denies chest pain, lightheadedness/syncope, and bleeding on Xarelto. Review of Systems Cardiovascular: Positive for dyspnea on exertion, leg swelling (L > R) and palpitations (with exertion). Respiratory: Positive for cough. Musculoskeletal: Positive for muscle weakness. All other systems reviewed and are negative.[facility] 05-20-2024 NoteCardiovascular Medicine [facility] SUBJECTIVE Chief Complaint Patient presents with Hospital Follow-up Congestive Heart Failure Ruma Carlton is a 63 y.o. female here for hospital follow-up. HPI PMHx: Her weight has been stable. Averaging 257-258 #. She feels like her LOPEZ is still worse than her baseline. She has noticed some increased leg swelling since her discharge. Denies CP, orthopnea, PND, syncope. Inpatient HPI: Ruma Carlton is a 63 y.o. female with a past medical history significant for chronic congestive diastolic heart failure, coronary heart disease status post CABG x 3 on November 2023, hypothyroidism, paroxysmal atrial fibrillation, type 2 diabetes mellitus, hyperlipidemia, nicotine dependence, morbid obesity with BMI of 51.02. Patient presented to [facility] from [facility] ER for possible heart catheterization. Patient presented to the [facility] ER on 05/10 with complaints of gradually progressive shortness of breath for 1-2 weeks. Patient endorsed exertional shortness of breath and weight gain of 4 at least 10 pounds. Endorsed bilateral lower extremity edema for the past few weeks. Workup at [facility] demonstrated elevated BNP, elevated troponin and EKG showing NSTEMI. Patient was admitted to the ICU at [facility] overnight and was placed on heparin drip. Patient denied any chest pain/discomfort, palpitation. Patient presented with shortness of breath. Vitals are unremarkable. Labs notable for troponin 0.06, BNP 537. EKG showed sinus tachycardia. Last echo showed showed EF of 65-70% with no regional WMA(12/21/2023). Patient was treated with GDMT. Cardiology was consulted for management of HF excerbation. Patient Active Problem List Diagnosis Primary pulmonary hypertension (CMS/HCC) Chronic pulmonary heart disease (CMS/HCC) Benign essential hypertension Chest pain Dyspnea Infarction of lung due to iatrogenic pulmonary embolism (CMS/HCC) Morbid obesity (CMS/HCC) Obstructive sleep apnea syndrome Palpitations Pulmonary embolism (CMS/HCC) Supraventricular tachycardia POTS (postural orthostatic tachycardia syndrome) Autonomic neuropathy Rheumatoid arthritis (CMS/HCC) Diabetes mellitus type II, non insulin dependent (CMS/HCC) LOPEZ (dyspnea on exertion) Unstable angina (CMS/HCC) Coronary artery disease involving [place] coronary artery of [place] heart without angina pectoris Multi-vessel coronary artery stenosis Multiple vessel coronary artery disease Status post four vessel coronary artery bypass Anxiety Insomnia Acute on chronic congestive heart failure, unspecified heart failure type (CMS/HCC) NSTEMI (non-ST elevated myocardial infarction) (CMS/HCC) Fluid overload Hypothyroidism Mood disorder Past Medical History: Diagnosis Date Abnormal ECG Arrhythmia Atrial fibrillation (CMS/HCC) CHF (congestive heart failure) (CMS/HCC) Coronary artery disease Diabetes mellitus (CMS/HCC) approx 2020 Disease of thyroid gland august 2023 Hyperlipidemia Hypertension unknown, ok now Pulmonary embolism (CMS/HCC) Family History Problem Relation Name Age of Onset Breast cancer Mother Lupe Amin 65 Cancer Mother Lupe Amin Depression Mother Lupe Amin Anemia Father Ledy Eloisa Atrial fibrillation Father Ledy Amin Diabetes type II Father Ledy Amin Hypertension Father Ledy Eloisa Obesity Father Ledy Amin Lupus Sister Alcohol abuse Brother Other (POTS) Niece Migraines Daughter Other (POTS) Nephew Autoimmune disease Nephew Sudden Neg Hx Aneurysm Neg Hx Social History Tobacco Use Smoking status: Former Current packs/day: 1.00 Average packs/day: 1 pack/day for 40.0 years (40.0 ttl pk-yrs) Types: Cigarettes Smokeless tobacco: Never Substance Use Topics Alcohol use: Yes Comment: maybe every 2 or 3 months I have one while out Drug use: Not Currently Types: Marijuana Comment: occasionally, maybe every month or two Allergies Allergen Reactions Codeine Other Metoclopramide Hcl Other Sulfa (Sulfonamide Antibiotics) Other ROS Cardiovascular: Positive for dyspnea on exertion, leg swelling (L > R) and palpitations (with exertion). Respiratory: Positive for cough. Musculoskeletal: Positive for muscle weakness. All other systems reviewed and are negative. OBJECTIVE Visit Vitals BP 110/66 (BP Location: Right arm, Patient Position: Sitting) Pulse 60 Ht 1.549 m (5' 1 ) Wt 117 kg (257 lb) LMP (LMP Unknown) SpO2 93% BMI 48.56 kg/m??? OB Status Postmenopausal Smoking Status Former BSA 2.24 m??? Medications: Current Outpatient Medications: aspirin 81 mg EC tablet, Take 81 mg by mouth in the morning., Disp: , Rfl: furosemide (Lasix) 40 mg tablet, Take 1 tablet (40 mg) by mouth before breakfast. (Patient taking differently: Take 40 mg by mouth two times daily.), Disp: 90 tablet, Rfl: 3 baltazar (more content not included)...[facility]02-21-2025 NoteHospital Medicine Discharge Summary Final Discharge Diagnosis: Acute on chronic heart failure with combination diastolic and systolic, with recovered EF, NYHA class 3. Elevated Troponin, likely type II in the setting of acute on chronic heart failure exacerbation Secondary diagnosis: Severe multivessel coronary artery disease status post CABG (12/15/2023). History of paroxymal A-FIB Primary hypertension. Type II diabetes mellitus History of pulmonary embolism on Xarelto Tobacco use disorder Admission Diagnosis: Acute on chronic congestive heart failure, unspecified heart failure type (CMS/HCC) [I50.9] Hospital course: Ruma Carlton is a 63 y.o. female with a past medical history significant for chronic congestive diastolic heart failure, coronary heart disease status post CABG x 3 on November 2023, hypothyroidism, paroxysmal atrial fibrillation, type 2 diabetes mellitus, hyperlipidemia, nicotine dependence, morbid obesity with BMI of 51.02. Patient presented to [facility] from [facility] ER on 05/10 for possible heart catheterization. Patient was complaining of gradually progressive shortness of breath for 1-2 weeks. Patient endorsed exertional shortness of breath and weight gain of 4 at least 10 pounds. Also she endorsed bilateral lower extremity edema for the past few weeks. Workup at [facility] demonstrated elevated BNP, elevated troponin and EKG showing NSTEMI. Patient was admitted to the ICU at [facility] overnight and was placed on heparin drip. Patient denied any chest pain/discomfort, palpitation. Vitals are unremarkable. Labs notable for troponin 0.06, BNP 537. EKG showed sinus tachycardia. Last echo showed showed EF of 65-70% with no RWMA (12/21/2023). Patient had repeat echo that showed EF 60% and her meds were adjusted as tolerated for goal-directed therapy and she did WELL. She is being discharged today and to follow-up with cardiology in 1 week Surgical, Invasive or Diagnostic Procedures Done During Admission: None Consultations During Admission: Cardiology Dear Dr. hCaparro MD, Ruma is advised to follow up with you within 1-2 weeks. Items to follow up in ambulatory setting: None Follow-up with: Cardiology Scheduled appointments: Future Appointments Date Time Provider Department Center 05/20/2024 10:20 AM Darryl Pedraza CNP [facility] Your medication list START taking these medications Instructions Last Dose Given Next Dose Due dapagliflozin propanediol 10 mg Commonly known as: Farxiga Start taking on: May 15, 2024 Take 1 tablet (10 mg) by mouth in the morning. metoprolol succinate XL 25 mg 24 hr tablet Commonly known as: Toprol-XL Start taking on: May 15, 2024 Take 1 tablet (25 mg) by mouth in the morning. Do not crush or chew. sacubitril-valsartan 24-26 mg tablet Commonly known as: Entresto Take 0.5 tablets by mouth two times daily. CONTINUE taking these medications Instructions Last Dose Given Next Dose Due aspirin 81 mg EC tablet Breo Ellipta 100-25 mcg/dose inhaler Generic drug: fluticasone furoate-vilanteroL furosemide 40 mg tablet Commonly known as: Lasix Take 1 tablet (40 mg) by mouth before breakfast. lamoTRIgine 200 mg tablet Commonly known as: LaMICtal levothyroxine 50 mcg tablet Commonly known as: Synthroid, Levoxyl magnesium oxide 400 mg tablet Commonly known as: Mag-Ox Miralax 17 gram/dose powder Generic drug: polyethylene glycol mirtazapine 15 mg tablet Commonly known as: Remeron pyRIDostigmine 60 mg tablet Commonly known as: Mestinon Take 2 tablets (120 mg) by mouth in the morning, at noon, in the evening, and at bedtime. rivaroxaban 20 mg tablet Commonly known as: Xarelto spironolactone 25 mg tablet Commonly known as: Aldactone Take 0.5 tablets (12.5 mg) by mouth in the morning. venlafaxine XR 150 mg 24 hr capsule Commonly known as: Effexor-XR STOP taking these medications atorvastatin 40 mg tablet Commonly known as: Lipitor diclofenac 1 % topical gel Commonly known as: Voltaren guaiFENesin 600 mg 12 hr tablet Commonly known as: Mucinex metoprolol tartrate 25 mg tablet Commonly known as: Lopressor SITagliptin phosphate 100 mg tablet Commonly known as: Januvia Where to Get Your Medications These medications were sent to [facility]/pharmacy [id number] [place] [address] AT [address] [place] [id number] dapagliflozin propanediol 10 mg metoprolol succinate XL 25 mg 24 hr tablet sacubitril-valsartan 24-26 mg tablet Ruma is allergic to codeine, metoclopramide hcl, and sulfa (sulfonamide antibiotics). Disposition: Home or Self Care () Discharge Condition: Stable Code Status: Full Code Diagnostic Results Hematology: Results from last 7 days Lab Units 05/14/24 0551 05/12/24 0558 05/11/24 2303 WBC AUTO 10*3/uL 6.81 6.18 -- HEMOGLOBIN g/dL 14.6 13.6 - (more content not included)...[facility]02-21-2025 NoteAttempted to delete note. Left incomplete. [facility]02-20-2025 NoteHospital Medicine Daily Progress Note - 05/13/2024 12:47 PM; Room: [address] [place] [address] Admission: 05/11/2024 10:01 PM; Length of stay: 2 days THE HOSPITALIST TEAM PREFERS TO USE [employer] FOR NON-URGENT COMMUNICATION 7AM-7PM. IF I DO NOT RESPOND WITHIN 20 MINUTES OR URGENT MATTERS, PLEASE CALL THROUGH THE RULING TECHNICIAN. FROM 7PM-7AM, PLEASE PAGE [phone](COVR). Code Status: Full Code Barriers to Discharge: Cardiac workup Expected Discharge Date: 1 day Discharge Destination: home Overview Patient is seen for evaluation and management of Chest pain and SOB Subjective Seen today in her room, denies any significant chest pain or shortness of breath. Still has some cough but breathing much better Physical Exam Constitutional: General: She is not in acute distress. Cardiovascular: Rate and Rhythm: Normal rate and regular rhythm. Pulses: Normal pulses. Heart sounds: Normal heart sounds. Pulmonary: Effort: Pulmonary effort is normal. Breath sounds: Normal breath sounds. No wheezing or rhonchi. Abdominal: General: Bowel sounds are normal. Palpations: Abdomen is soft. Musculoskeletal: Cervical back: Normal range of motion. Right lower leg: Trace Edema present. Left lower leg: Trace Edema present. Skin: General: Skin is warm and dry. Capillary Refill: Capillary refill takes less than 2 seconds. Neurological: General: No focal deficit present. Visit Vitals BP 113/75 (BP Location: Right arm, Patient Position: Lying) Pulse 54 Temp 37.1 ???C (98.8 ???F) (Temporal) Resp 17 Intake/Output Summary (Last 24 hours) at 05/13/2024 1247 Last data filed at 05/13/2024 0726 Gross per 24 hour Intake 595 ml Output 2250 ml Net -1655 ml Estimated body mass index is 48.03 kg/m??? as calculated from the following: Height as of this encounter: 1.549 m (5' 1 ). Weight as of this encounter: 115 kg (254 lb 3.2 oz). Active Inpatient Problems Principal Problem: NSTEMI (non-ST elevated myocardial infarction) (CMS/HCC) Active Problems: Benign essential hypertension Obstructive sleep apnea syndrome Diabetes mellitus type II, non insulin dependent ([facility]) Coronary artery disease of [place] artery of [place] heart with stable angina pectoris Status post four vessel coronary artery bypass Acute on chronic congestive heart failure, unspecified heart failure type (CMS/HCC) Fluid overload Hypothyroidism LOPEZ (dyspnea on exertion) Assessment and Plan Acute on chronic CHF, impEF Change Lasix 40 IV BID to PO daily due to mild increase in troponins Continue also Farxiga, Toprol-XL and Aldactone, Entresto added Last echo 11/2023 reported 65 to 70% EF Repeat echo showed EF 60% 2. Severe multivessel coronary disease s/p CABG ([facility], [facility]G-OM, [facility]G-PD), 11/2023 3. Mild troponin elevation Patient denies any chest pain EKG showed sinus tachycardia Continue Telemetry 4 . History of PE/PAF on Xarelto 5 . Primary hypertension 6 . Type 2 DM 7. UYEN 8. Primary Pulmonary hypertension 9. POTS/Autonomic neuropathy 10. H/O RA 11. H/O MGUS 12. H/O hypothyroidism Resume rest of home meds VTE Prophylaxis: Xarelto Scheduled Meds aspirin, 81 mg, oral, Daily dapagliflozin propanediol, 10 mg, oral, Daily fluticasone propion-salmeteroL, 2 puff, inhalation, q12h furosemide, 40 mg, intravenous, q12h insulin lispro, 0-5 Units, subcutaneous, TID with meals And insulin lispro, 0-4 Units, subcutaneous, Nightly lamoTRIgine, 200 mg, oral, Daily levothyroxine, 50 mcg, oral, Daily before breakfast magnesium oxide, 400 mg, oral, BID metoprolol succinate XL, 25 mg, oral, Daily potassium chloride CR, 40 mEq, oral, Once pyRIDostigmine, 120 mg, oral, 4x daily rivaroxaban, 20 mg, oral, Daily with evening meal sacubitril-valsartan, 1 tablet, oral, BID SITagliptin phosphate, 100 mg, oral, Daily spironolactone, 12.5 mg, oral, Daily venlafaxine XR, 300 mg, oral, Daily Pertinent Investigations Hematology: Results from last 7 days Lab Units 05/12/24 0558 05/11/24 2303 05/11/24 2302 WBC AUTO 10*3/uL 6.18 -- 7.69 HEMOGLOBIN g/dL 13.6 -- 14.0 HEMATOCRIT % 41.8 -- 41.6 MCV fL 88.9 -- 86.0 PLATELETS AUTO 10*3/uL 254 -- 270 INR -- 0.99 -- Chemistry: Results from last 7 days Lab Units 05/13/24 0342 05/11/24 2303 SODIUM mmol/L 137 134* POTASSIUM mmol/L 3.5 3.8 CHLORIDE mmol/L 99 98 CO2 mmol/L 29 27 BUN mg/dL 19 16 CREATININE mg/dL 1.29* 0.98 GLUCOSE mg/dL 135* 151* MAGNESIUM mg/dL -- 2.2 CALCIUM mg/dL 9.1 8.9 PHOSPHORUS mg/dL -- 3.1 Results from last 7 days Lab Units 05/11/24 2303 AST U/L 18 ALT U/L 13 ALK PHOS U/L 128* BILIRUBIN TOTAL mg/dL 0.4 Results from last 7 days Lab Units 05/13/24 1128 05/13/24 0727 05/12/24 2043 05/12/24 1643 05/12/24 1141 05/12/24 0826 POCT GLUCOSE mg/dL 183* 141* 165* 183* 152* 189* Historical Values: (Includes values prior to this admission) Lab Results Component Value Date TSH 5.49 11/23 (more content not included)...[facility] 05-13-2024 NoteCardiology Progress Note Reason for Consult: HF exacerbation HPI: Ruma Carlton is a 63 y.o. female with a past medical history significant for chronic congestive diastolic heart failure, coronary heart disease status post CABG x 3 on November 2023, hypothyroidism, paroxysmal atrial fibrillation, type 2 diabetes mellitus, hyperlipidemia, nicotine dependence, morbid obesity with BMI of 51.02. Patient presented to [facility] from [facility] ER for possible heart catheterization. Patient presented to the [facility] ER on 05/10 with complaints of gradually progressive shortness of breath for 1-2 weeks. Patient endorsed exertional shortness of breath and weight gain of 4 at least 10 pounds. Endorsed bilateral lower extremity edema for the past few weeks. Workup at [facility] demonstrated elevated BNP, elevated troponin and EKG showing NSTEMI. Patient was admitted to the ICU at [facility] overnight and was placed on heparin drip. Patient denied any chest pain/discomfort, palpitation. Patient presented with shortness of breath. Vitals are unremarkable. Labs notable for troponin 0.06, BNP 537. EKG showed sinus tachycardia. Last echo showed showed EF of 65-70% with no regional WMA(12/21/2023). Patient was treated with GDMT. Cardiology was consulted for management of HF excerbation. 05/13/2024 Patient seen and examined at bedside. No acute events overnight. Objective Patient Vitals for the past 24 hrs: BP Temp Temp src Pulse Resp SpO2 Weight 05/13/24 0726 -- -- -- 54 17 96 % -- 05/13/24 0700 113/75 37.1 ???C (98.8 ???F) Temporal -- -- -- -- 05/13/24 0539 -- -- -- -- -- -- 115 kg (254 lb 3.2 oz) 05/13/24 0400 105/63 36 ???C (96.8 ???F) Temporal 55 16 100 % -- 05/13/24 0000 112/60 36.2 ???C (97.2 ???F) Temporal 58 20 95 % -- 05/12/24 2314 116/65 -- -- 57 19 94 % -- 05/12/24 2200 114/62 -- -- 62 -- 93 % -- 05/12/242134 123/70 -- -- -- -- -- -- 05/12/242133 123/70 -- -- 71 22 95 % -- 05/12/24 2100 121/67 -- -- 56 15 95 % -- 05/12/242005 127/76 36.2 ???C (97.2 ???F) Temporal 58 19 97 % -- 05/12/24 1543 -- -- -- -- -- 95 % -- 05/12/24 1542 120/72 36.8 ???C (98.2 ???F) Temporal 56 18 -- -- 05/12/24 1200 138/84 36.7 ???C (98.1 ???F) Temporal 60 17 97 % -- Physical Exam Vitals reviewed. Constitutional: Appearance: Normal appearance. She is obese. HENT: Head: Normocephalic and atraumatic. Right Ear: External ear normal. Left Ear: External ear normal. Eyes: Extraocular Movements: Extraocular movements intact. Conjunctiva/sclera: Conjunctivae normal. Pupils: Pupils are equal, round, and reactive to light. Neck: Vascular: No carotid bruit. Cardiovascular: Rate and Rhythm: Normal rate and regular rhythm. Pulses: Normal pulses. Heart sounds: Normal heart sounds. Pulmonary: Effort: Pulmonary effort is normal. Breath sounds: Normal breath sounds. Abdominal: General: Bowel sounds are normal. Palpations: Abdomen is soft. Musculoskeletal: Cervical back: Neck supple. Right lower leg: No edema. Left lower leg: No edema. Skin: General: Skin is warm and dry. Neurological: General: No focal deficit present. Mental Status: She is alert and oriented to person, place, and time. Psychiatric: Mood and Affect: Mood normal. Behavior: Behavior normal. Thought Content: Thought content normal. Judgment: Judgment normal. Lab Results Component Value Date NA 137 05/13/2024 K 3.5 05/13/2024 CL 99 05/13/2024 ANIONGAP 13 05/13/2024 BUN 19 05/13/2024 CREATININE 1.29 (H) 05/13/2024 CALCIUM 9.1 05/13/2024 MG 2.2 05/11/2024 PHOS 3.1 05/11/2024 Lab Results Component Value Date BILITOT 0.4 05/11/2024 BILIDIR 0.1 12/24/2023 ALKPHOS 128 (H) 05/11/2024 AST 18 05/11/2024 ALT 13 05/11/2024 PROT 7.0 05/11/2024 ALBUMIN 4.1 05/11/2024 Lab Results Component Value Date WBC 6.18 05/12/2024 RBC 4.70 05/12/2024 HGB 13.6 05/12/2024 HCT 41.8 05/12/2024 MCV 88.9 05/12/2024 MCH 28.9 05/12/2024 MCHC 32.5 05/12/2024 RDW 13.9 05/12/2024 MPV 8.9 12/27/2023 NEUTOPHILPCT 58.5 05/11/2024 LYMPHOPCT 29.3 05/11/2024 MONOPCT 6.5 05/11/2024 EOSPCT 4.0 05/11/2024 BASOPCT 1.3 (H) 05/11/2024 NEUTROABS 4.50 05/11/2024 LYMPHSABS 2.25 05/11/2024 MONOSABS 0.50 05/11/2024 EOSABS 0.31 05/11/2024 BASOSABS 0.10 05/11/2024 PLT 254 05/12/2024 NRBC 0.0 05/11/2024 No X-ray results found for the past 24 hoursNo MRI results found for the past [address] results found for the past 24 hours Encounter Date: 05/11/24 ECG 12 lead Result Value Ventricular Rate 105 Atrial Rate 120 ID Interval 200 QRS DURATION 90 QT Interval 368 QTC CALCULATION(BAZETT) 486 P [place] 70 R-[place] 99 T Wave [place] 83 Impression Sinus tachycardia Possible Right ventricular hypertrophy Nonspecific ST abnormality Abnormal ECG When compared with ECG of 15-DEC-2023 18:05, Sinus rhythm has replaced Junctional rhythm Criteria for Septa (more content not included)...[facility] 05-12-2024 NoteHospital Medicine Daily Progress Note - 05/12/2024 1:47 PM; Room: [address] [place] [address] Admission: 05/11/2024 10:01 PM; Length of stay: 1 days THE HOSPITALIST TEAM PREFERS TO USE [employer] CHAT FOR NON-URGENT COMMUNICATION 7AM-7PM. IF I DO NOT RESPOND WITHIN 20 MINUTES OR URGENT MATTERS, PLEASE CALL THROUGH THE RULING TECHNICIAN. FROM 7PM-7AM, PLEASE PAGE [phone](COVR). Code Status: Full Code Barriers to Discharge: Cardiac workup Expected Discharge Date: 2 days ? Discharge Destination: home Overview Patient is seen for evaluation and management of Chest pain and SOB Subjective Seen today in her room, on 1 L nasal cannula, denies any significant chest pain or shortness of breath. Still has some cough Physical Exam Constitutional: General: She is not in acute distress. Cardiovascular: Rate and Rhythm: Normal rate and regular rhythm. Pulses: Normal pulses. Heart sounds: Normal heart sounds. Pulmonary: Effort: Pulmonary effort is normal. Breath sounds: Normal breath sounds. No wheezing or rhonchi. Abdominal: General: Bowel sounds are normal. Palpations: Abdomen is soft. Musculoskeletal: Cervical back: Normal range of motion. Right lower leg: Trace Edema present. Left lower leg: Trace Edema present. Skin: General: Skin is warm and dry. Capillary Refill: Capillary refill takes less than 2 seconds. Neurological: General: No focal deficit present. Visit Vitals BP 138/84 Pulse 60 Temp 35.8 ???C (96.5 ???F) (Temporal) Resp 17 Intake/Output Summary (Last 24 hours) at 05/12/2024 1347 Last data filed at 05/12/2024 1115 Gross per 24 hour Intake 462.28 ml Output 300 ml Net 162.28 ml Estimated body mass index is 51.02 kg/m??? as calculated from the following: Height as of this encounter: 1.549 m (5' 1 ). Weight as of this encounter: 122 kg (270 lb). Active Inpatient Problems Principal Problem: NSTEMI (non-ST elevated myocardial infarction) ([facility]) Active Problems: Benign essential hypertension Obstructive sleep apnea syndrome Diabetes mellitus type II, non insulin dependent ([facility]) Coronary artery disease of [place] artery of [place] heart with stable angina pectoris Status post four vessel coronary artery bypass Acute on chronic congestive heart failure, unspecified heart failure type ([facility]) Fluid overload Hypothyroidism LOPEZ (dyspnea on exertion) Assessment and Plan Acute on chronic CHF, impEF Continue for now Lasix 40 IV BID Continue also Farxiga, Toprol-XL and Aldactone Last echo 11/2023 reported 65 to 70% EF Repeat echo pending 2. Severe multivessel coronary disease s/p CABG (FORD-LAD, LSVG-OM, LSVG-PD), 11/2023 3. Mild troponin elevation Patient denies any chest pain EKG showed sinus tachycardia Continue Telemetry 4 . History of PE/PAF on Xarelto 5 . Primary hypertension 6 . Type 2 DM 7. UYEN 8. Primary Pulmonary hypertension 9. POTS/Autonomic neuropathy 10. H/O RA 11. H/O MGUS 12. H/O hypothyroidism Resume rest of home meds VTE Prophylaxis: Xarelto Scheduled Meds aspirin, 81 mg, oral, Daily dapagliflozin propanediol, 10 mg, oral, Daily fluticasone propion-salmeteroL, 2 puff, inhalation, q12h furosemide, 40 mg, intravenous, q12h insulin lispro, 0-5 Units, subcutaneous, TID with meals And insulin lispro, 0-4 Units, subcutaneous, Nightly lamoTRIgine, 200 mg, oral, Daily levothyroxine, 50 mcg, oral, Daily before breakfast magnesium oxide, 400 mg, oral, BID metoprolol succinate XL, 25 mg, oral, Daily pyRIDostigmine, 120 mg, oral, 4x daily rivaroxaban, 20 mg, oral, Daily with evening meal SITagliptin phosphate, 100 mg, oral, Daily spironolactone, 12.5 mg, oral, Daily venlafaxine XR, 300 mg, oral, Daily Pertinent Investigations Hematology: Results from last 7 days Lab Units 05/12/24 0558 05/11/24 2303 05/11/24 2302 WBC AUTO 10*3/uL 6.18 -- 7.69 HEMOGLOBIN g/dL 13.6 -- 14.0 HEMATOCRIT % 41.8 -- 41.6 MCV fL 88.9 -- 86.0 PLATELETS AUTO 10*3/uL 254 -- 270 INR -- 0.99 -- Chemistry: Results from last 7 days Lab Units 05/11/24 2303 SODIUM mmol/L 134* POTASSIUM mmol/L 3.8 CHLORIDE mmol/L 98 CO2 mmol/L 27 BUN mg/dL 16 CREATININE mg/dL 0.98 GLUCOSE mg/dL 151* MAGNESIUM mg/dL 2.2 CALCIUM mg/dL 8.9 PHOSPHORUS mg/dL 3.1 Results from last 7 days Lab Units 05/11/24 2303 AST U/L 18 ALT U/L 13 ALK PHOS U/L 128* BILIRUBIN TOTAL mg/dL 0.4 Results from last 7 days Lab Units 05/12/24 1141 05/12/24 0826 05/11/24 2306 POCT GLUCOSE mg/dL 152* 189* 163* Historical Values: (Includes values prior to this admission) Lab Results Component Value Date TSH 5.49 12/18/2023 HDL 48 12/05/2023 LDL 126 12/05/2023 Lab Results Component Value Date IRON 21 (L) 12/18/2023 TIBC 187 (L) 12/18/2023 Imaging ECG 12 lead Sinus tachycardia Possible Right ventricular hypertrophy Nonspecific ST abnormality Abnormal ECG When compared with ECG of 15-DEC-2023 18:05, S (more content not included)...[facility]02-19-2025 NotePt admitted to hospital for NSTEMI. Pt has echo scheduled. I will wait for current echo results to determine pt's eligibility to participate in cardiac rehab (CR) therapy with HF diagnosis. Pt is eligible with NSTEMI dx pending appropriate referral. I will watch for updates and follow up with pt, if appropriate. ELIZABETH Kate precision farming specialist Outpatient Coordinator Cardiopulmonary RehabUnWestern [facility] Hospital02-19-2025 NoteCase was discussed with the ADEBAYO on 05/11/2024. I agree with the history, physical, assessment, and plan of care. I discussed the findings and therapeutic plan. I agree with the documentation, except for any updates below. Rao Foster MDUnWestern Reserve Hospital02-19-2025 NoteCXR negative for any evidence of acute cardiopulmonary [...] telemetry N.p.o. at midnight pending potential heart cathUnWestern Reserve Hospital02-19-2025 NotePer primary team to consider addition of CPAP/BiPAP nightly [facility]02-19-2025 NoteContinue with home medication, levothyroxine 50 mcg tablet p.o. dailyUnWestern Reserve Hospital 05-12-2024 NoteContinue diuresis as above Supplemental O2 at 2-4 L/min via nasal cannula as neededUnWestern Reserve Hospital02-19-2025 NoteInsulin lispro per sliding scale before meals and at bedtime. Continue home medication Januvia 100 mg p.o. dailyUnBucyrus Community Hospital Medical [id number] NoteHospital Medicine History and Physical 05/12/2024 3:03 AM THE HOSPITALIST TEAM PREFERS TO USE [employer] CHAT FOR NON-URGENT COMMUNICATION 7AM-7PM. IF I DO NOT RESPOND WITHIN 20 MINUTES OR URGENT MATTERS, PLEASE CALL THROUGH THE RULING TECHNICIAN. FROM 7PM-7AM, PLEASE PAGE [phone](COVR). Chief Complaint Shortness of breath Worsening X1 week History of Present Illness Ruma Carlton is an 63 y.o. female with past medical history including, but not limited to acute on chronic diastolic congestive heart failure, atherosclerotic heart disease of [place] coronary artery, hypothyroidism, paroxysmal atrial fibrillation, DM 2, HLD, nicotine dependence, and morbid (severe) obesity. Who came from [facility] ER per recommendation of their cardiology department for heart cath. Patient had presented to [facility] ER yesterday with complaint of SOB worsening X1-2 weeks becoming disablingly short of breath earlier today. Patient also reports progressive dyspnea on exertion in addition to weight gain of 10 pounds and bilateral lower extremity edema for the past few weeks. Workup at [facility] showed indications of acute on chronic diastolic heart failure with fluid overload, elevated BN P, elevated and increasing troponin, and ECG showing NSTEMI. Patient was admitted to ICU at [facility] overnight and was placed on a heparin drip. Last dose of Xarelto was on 05/09/2024. Patient denied any chest pain or chest discomfort other than shortness of breath. Patient does report fairly recent history of CABG X3 just this past November(2023). Patient states at that time, the plan had been for heart cath which was unable to be done instead CABG X3 was performed. Of note, patient diuresed with IV Lasix while at [facility]. Upon arrival here, patient alert and oriented X4. Patient denies any chest pain or shortness of breath at present. Patient stable on room air. Patient did arrive on heparin drip. Will continue. CBC, CMP, mag, Phos, BNP, PT/INR, APTT, ordered and pending. Troponin trending ordered and pending. CXR and ECG ordered and pending. Cardiology consulted. Patient n.p.o. at midnight for potential heart cath. Review of System and Physical Exam Temp: [36.1 ???C (97 ???F)] 36.1 ???C (97 ???F) Heart Rate: [63-120] 103 Resp: [17-21] 21 BP: (113-121)/(64-80) 121/64 Physical Exam Vitals and nursing note reviewed. Constitutional: General: She is not in acute distress. Appearance: She is obese. She is not ill-appearing, toxic-appearing or diaphoretic. HENT: Head: Normocephalic. Nose: Nose normal. Mouth/Throat: Mouth: Mucous membranes are moist. Pharynx: Oropharynx is clear. Eyes: Extraocular Movements: Extraocular movements intact. Conjunctiva/sclera: Conjunctivae normal. Pupils: Pupils are equal, round, and reactive to light. Cardiovascular: Rate and Rhythm: Normal rate and regular rhythm. Pulses: Normal pulses. Heart sounds: Normal heart sounds. Pulmonary: Effort: Pulmonary effort is normal. Breath sounds: Normal breath sounds. No wheezing or rhonchi. Abdominal: General: Bowel sounds are normal. Palpations: Abdomen is soft. Musculoskeletal: Cervical back: Normal range of motion. Right lower leg: Edema present. Left lower leg: Edema present. Skin: General: Skin is warm and dry. Capillary Refill: Capillary refill takes less than 2 seconds. Neurological: General: No focal deficit present. Mental Status: She is alert and oriented to person, place, and time. Mental status is at baseline. Psychiatric: Behavior: Behavior normal. Thought Content: Thought content normal. Judgment: Judgment normal. Review of Systems Constitutional: Positive for activity change. HENT: Negative. Eyes: Negative. Respiratory: Positive for shortness of breath. Negative for cough, chest tightness and wheezing. Cardiovascular: Positive for leg swelling. Negative for chest pain. Gastrointestinal: Negative for constipation, diarrhea, nausea and vomiting. Endocrine: Negative. Genitourinary: Negative. Negative for dysuria. Musculoskeletal: Negative. Skin: Negative. Allergic/Immunologic: Negative. Neurological: Negative for dizziness, light-headedness and headaches. Hematological: Negative. Psychiatric/Behavioral: Negative. Assessment and Plan Assessment & Plan Acute on chronic congestive heart failure, unspecified heart failure type (CMS/HCC) Fluid overload NSTEMI (non-ST elevated myocardial infarction) (CMS/HCC) Coronary artery disease of [place] artery of [place] heart with stable angina pectoris Status post four vessel coronary artery bypass Benign essential hypertension CXR negative for any evidence of acute cardiopulmonary process. Mild cardiomegaly noted. BNP elevated 537 Trace to+1 pitting edema BLE No supplemental O2 use, on room air Continue diuresis with Lasix 40 mg p.o. daily ECG showing sinus tachycardia with possible right ventricula (more content not included)...[facility]11-14-2024 Note[facility] PRO[facility] Reason for follow up: Multivessel CAD Subjective Ruma Carlton is a 63 yo female patient with PMHx significant for primary hypertension, type 2 diabetes mellitus, CAD, UYEN, primary pulmonary hypertension, POTS, multi-vessel coronary artery stenosis s/p CABG x 3 (FORD-LAD, LSVG-OM, LSVG-PD). She presents today for follow-up. She denies any cardiac complaints or concerns. She denies any chest pain or shortness of breath. She denies any lower extremity edema, orthopnea, or paroxysmal nocturnal dyspnea. Overall, she is very pleased with how she is doing. Surgical sites are clean, dry, and intact. No new complaints. Tele: NSR 63-68 bpm ALLERGIES Allergies Allergen Reactions Codeine Other Metoclopramide Hcl Other Sulfa (Sulfonamide Antibiotics) Other CURRENT MEDS Objective Patient Vitals for the past 24 hrs: 12/30/2023 4:35 AM 12/30/2023 7:35 AM 12/30/2023 8:32 AM 12/30/2023 12:25 PM 12/30/2023 12:37 PM 01/08/2024 2:20 PM 02/05/2024 1:23 PM Vitals Systolic 97 100 118 134 Diastolic 51 76 59 68 Heart Rate 62 83 68 69 63 72 Temp 36.3 ???C (97.3 ???F) 36.6 ???C (97.9 ???F) Resp 18 16 18 Height (in) 1.549 m (5' 1 ) 1.549 m (5' 1 ) Weight (lb) 273.8 270 259 BMI 50.08 kg/m2 51.02 kg/m2 48.94 kg/m2 BSA (m2) 2.33 m2 2.29 m2 2.24 m2 Visit Report Report Report BP 134/68 Pulse 72 Ht 1.549 m (5' 1 ) Wt 117 kg (259 lb) LMP (LMP Unknown) SpO2 99% BMI 48.94 kg/m??? Wt Readings from Last 3 Encounters: 02/05/24 117 kg (259 lb) 01/08/24 122 kg (270 lb) 12/30/23 124 kg (273 lb 12.8 oz) General: Awake, alert, appropriate mood/affect, NAD Eyes: anicteric sclera. Non-injected conjunctiva. Neck: No elevated JVP. No carotid bruit Pulm: non labored, Breath sounds clear to ascultation bilaterally with no wheeze, crackles or rhonchi, on room air Cards: Regular rate and rhythm. NL S1, S2. No S3 or S4 gallop. Murmur: none Abd: Soft, Nontender, physiologic bowel sounds are present Extr: DP pulses present bilaterally, no edema Skin: warm, dry, well perfused. Right radial angiogram access site is clean, dry, pulse palpable +2, no drainage/erythema/hematoma. Site healing appropriately, open to air. Neuro: A&Ox3, No gross deficits Lab Results Component Value Date NA 139 01/12/2024 K 4.1 01/12/2024 CL 104 01/12/2024 ANIONGAP 10 01/12/2024 BUN 25 01/12/2024 CREATININE 0.91 01/12/2024 CALCIUM 8.6 01/12/2024 MG 2.2 12/29/2023 PHOS 3.6 12/16/2023 Lab Results Component Value Date CHOLESTEROL 174 12/05/2023 TRIGLYCERIDES 157 (H) 12/05/2023 TRIGLYCERIDES FL 25 12/24/2023 HDL 48 12/05/2023 LDL CALC 95 12/05/2023 Lab Results Component Value Date BNP 506 (H) 12/05/2023 Lab Results Component Value Date TSH 5.49 12/18/2023 Lab Results Component Value Date HGBA1C 5.8 12/06/2023 Lab Results Component Value Date BNP 506 (H) 12/05/2023 Lab Results Component Value Date WBC 5.96 01/12/2024 RBC 3.25 (L) 01/12/2024 HGB 10.3 (L) 01/12/2024 HCT 32.3 (L) 01/12/2024 MCV 99.4 (H) 01/12/2024 MCH 31.7 01/12/2024 MCHC 31.9 (L) 01/12/2024 RDW 15.6 (H) 01/12/2024 MPV 8.9 12/27/2023 NEUTOPHILPCT 66.4 12/31/2023 LYMPHOPCT 20.0 12/31/2023 MONOPCT 5.6 12/31/2023 EOSPCT 6.3 (H) 12/31/2023 BASOPCT 1.1 (H) 12/31/2023 NEUTROABS 4.12 12/31/2023 LYMPHSABS 1.24 12/31/2023 MONOSABS 0.35 12/31/2023 EOSABS 0.39 12/31/2023 BASOSABS 0.07 12/31/2023 PLT 263 01/12/2024 NRBC 0.0 12/31/2023 No X-ray results found for the past 24 hours CV Testing: Cardiac MRI w/wo contrast 12/10/23: IMPRESSION: *Left ventricular ejection fraction is calculated to be 60.6% without focal wall motion abnormality. This is discordant with the echo which showed an EF of 40-45%. *Left ventricular hypertrophymeasurements given above. *There may be some hypertrophy of the anterior wall of the right ventricle measuring up to about 0.7 cm in maximum thickness. There is some increased T1 signal in the anterior wall of the right ventricle but this does not persist on the rest images is bright fat and likely is artifact. Suspect some right ventricular hypertrophy but not fibrofatty infiltration.. *There is a faint area of delayed myocardial enhancement in the anterior wall mid myocardium around the 12 o'clock to 1 o'clock position small area represents some nonischemic nonspecific cardiomyopathy versus artifact. On delayed myocardial images there is some artifact present in the inferolateral wall from the 4 o'clock to 5 o'clock position. Encounter Date: 12/05/23 ECG 12 lead Result Value Ventricular Rate 84 QRS DURATION 104 QT Interval 420 QTC CALCULATION(BAZETT) 496 R-[place] 96 T Wave [place] 179 Impression Accelerated Junctional rhythm Right axis deviation Incomplete right bundle branch block Septal infarct , age undetermined Marked T wave abnormality, consider anterolateral ischemia Abnormal ECG When (more content not included)...[facility]11-21-2023 Evaluation note* Encounter Date Diagnosis Assessment Notes Treatment Notes Treatment Clinical Notes Jan, Acute pain of right hip (ICD-10 - M25.551) [employer] Other 10-06-2023 Evaluation note* Encounter Date Diagnosis Assessment Notes Treatment Notes Treatment Clinical Notes Dec, Right carotid bruit (ICD-10 - R0 9.89) Will set up US with lab work. Dec,Hyponatremia (ICD-10 - E87.1)Add sodium tablet to help with low bp, hyponatremia. Dec,Situational anxiety (ICD-10 - F41.8)Discussed stressors and medical issues. Dec,ttention deficit disorder (ADD) in adult (ICD-10 - F98.8)Pt willing to try medication. This is a new med - will monitor results and followup in 3-4 weeks. [employer] Other 10-04-2023 Evaluation note* Encounter Date Diagnosis Assessment Notes Treatment Notes Treatment Clinical Notes Dec, Depressive disorder (ICD-10 - F3 2.A) [employer] Other 10-03-2023 History and physical note Author Froilan Brown [facility] December 24, 2022 4:06amNote Date/TimeOct2022 3:58[place] [address] Hospitalist H&P Signed Patient: Ruma Carlton MR#: [id number] : 1960 Acct:[id number] Age/Sex: 62 / F Adm Date: 3 Loc: Room: [address] [place] [address] Type: ADM IN Attending Dr: Froilan Brown MD Copies to: MD Anibal Mosquera MD~ HPI DATE OF EXAMINATION: 12/24/22 CHIEF COMPLAINT: fall HISTORY OF PRESENT ILLNESS: The patient is a 62 year old woman with a history of HTN, DVT/PE on xarelto, POTS, NIDDM2, paroxysmal SVT who presented to [facility] ED after a fall. Per the patient [...] got up from sleeping to walk to [facility] and fell- pt reports she felt wobbly after taking the flexeril. shedid not lose consciousness or feel dizzy and denies any chest pain or shortness of breath. Pt's right hip pain worsened over the course of Friday so she went to [facility] ER for evaluation on arrival there vital signs were within normal limits- ECG with NSR at 99 bpm and no acute ischemic changes. head CT and plain films of the right hip were unremarkable. the patient was noted to havean elevated troponin of 108 on arrival - repeat is 111. pt was transferred to this hospital for further evaluation The patient feels improved after she got tylenol at [facility]- the patient is somewhat irritated at being made to come here, and notes that her main concern in going to the ER was to make sure she didnot have a hip fracture and that shedid not have an ICH given that she is on xarelto. PMHx: as above PSHx: hysterectomy, colectomy, back surgery SHx: no tobacco etoh or illlicit drug use FHx: negative for premature CVD ROS: 10 systems reviewed and were negative except as noted in the [facility] Medical History Apnea Arthritis Back [...] thrombosis): (5) Hyponatremia: Plan: mild (126 at [facility])- ?medication related Plan - admit to medicine - monitor on telemetry - restart home medications - will check STAT troponin now. if it is markedly increased compared to at [facility], would ask cardiology to see pt. if [...] 1 Documented By: Froilan Brown MD 12/24/22 0356 Signed By: <Electronically signed by Froilan Brown MD> 12/24/22 0406 [facility] Work Phone: [phone] 573-623009-29-2023 Evaluation note* Encounter Date Diagnosis Assessment Notes Treatment Notes Treatment Clinical Notes Nov, Depressive disorder (ICD-10 - F3 2.A) [employer] Other 08-25-2023 Evaluation note* Encounter Date Diagnosis Assessment Notes Treatment Notes Treatment Clinical Notes Oct, Depressive disorder (ICD-10 - F3 2.A) Mood improved. 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 She hasn't rec'd the midodrine yet, but will start it and followup w [facility] cardio [facility] [employer] Other 06-22-2023 Evaluation note* Encounter Date Diagnosis Assessment Notes Treatment Notes Treatment Clinical Notes Aug, Depressive disorder (ICD-10 - F3 2.A) Declines psychiatry referral. Will increase lamictal to help with her mood problem. Aug,cute pain of right hip (ICD-10 - M25.551)Chronic problem - Requests medication. Aug,Obstructive sleep apnea (ICD-10 - G47.33)Agrees her CPAP is quite old and needs replaced. Understands that treating her UYEN could improve her fatigue Aug,rthritis, rheumatoid (ICD-10 - M06.9)Chronic problem Aug,rimary insomnia (ICD-10 - F51.01)Pt recalls treatment with temazepam in the past (years ago). Requests a refill. [employer] Other 02-06-2023 Evaluation note* Encounter Date Diagnosis Assessment Notes Treatment Notes Treatment Clinical Notes Apr, Skin lesion of left arm (ICD-10 - L98.9) Verbal consent obtained. Treated with cryofreeze. Pt will call if area does not resolve. 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 May need derm referral if it continues. Apr,Lumbar pain (ICD-10 - M54.50)Chronic problem Refilled med. 90 pills lasted 6 months. Requests a different muscle relaxer as cyclobenzaprine was not helpful in the past. Declines PT referral Apr,Sore in nose (ICD-10 - J34.89)Chronic problem. Agreed to retry ointment and consider ENT eval if area does not resolve. 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 [facility] Ass[facility] Information Available [facility]No [facility]NortCl[facility] [employer] Other Evaluation note* Diagnosis Onset Date Resolution Status Elevated troponin acuteFallacuteHyponatremiaacutePersonal history of DVT (deep vein thrombosis) acuteRight hip painacute [facility] Work Phone: Evaluation noteNo assessment information available [facility] Work Phone: Evaluation note* Diagnosis Onset Date Resolution Status Anxiety acuteBilateral primary osteoarthritis of kneeacuteDepressionacuteRight hip pain acute [facility] Work Phone: Evaluation note* Diagnosis Onset Date Resolution Status Abnormal TSH acuteArthritis, rheumatoidacuteLower extremity edemaacuteUrinary frequencyacute [facility] Work Phone: Evaluation note* Diagnosis Onset Date Resolution Status Abnormal TSH acuteArthritis, rheumatoidacuteLower extremity edemaacuteUrinary frequencyacute Abnormal TSHacuteDiabetes mellitus, type 2acuteHypertensionacute [facility] Work Phone: Evaluation note* Diagnosis Onset Date Resolution Status Abnormal TSH acuteArthritis, rheumatoidacuteLower extremity edemaacuteUrinary frequencyacute Abnormal TSHacuteArthritis, rheumatoidacuteDiabetes mellitus, type 2acute Hypertensionacute [facility] Work Phone: evaluation note* Diagnosis Onset Date Resolution Status Abnormal TSH acuteArthritis, rheumatoidacuteDiabetes mellitus, type 2acuteHypertensionacute [facility] Work Phone: evaluation note* Diagnosis Onset Date Resolution Status Admit Date Abnormal TSH acuteSept2024 11:25amScreening mammogram for breast canceracute December 21, 2024 11:25am [facility] Work Phone: History general Narrative - Reported* Type Description Date Medical History hypertension Medical HistorySVTMedical Historyacid refluxMedical HistoryIBS (irritable bowel syndrome)Medical HistoryDepressive disorderMedical HistoryParkinsonismMedical HistoryResting tremorMedical HistoryBacterial sinusitisMedical HistoryLumbar painMedical HistoryControlled type 2 diabetes mellitus with hyperglycemia, without long-term current use of insulinMedical HistoryArthritis, rheumatoid Medical HistorySciaticaMedical HistoryAcute pain of right hipMedical History PolydipsiaMedical HistoryPulmonary embolismMedical HistoryObstructive sleep apneaSurgical HistorycholecystectomySurgical HistoryhysterectomySurgical History back surgerySurgical Historyright hand trigger fingers nyumdue79/2022 Hospitalization Historysee above [employer] Other [facility] general Narrative - Reported* Type Description Date Medical History hypertension Medical HistorySVTMedical Historyacid refluxMedical HistoryIBS (irritable bowel syndrome)Medical HistoryDepressive disorderMedical HistoryParkinsonismMedical HistoryResting tremorMedical HistoryBacterial sinusitisMedical HistoryLumbar painMedical HistoryControlled type 2 diabetes mellitus with hyperglycemia, without long-term current use of insulinMedical HistoryArthritis, rheumatoid Medical HistorySciaticaMedical HistoryAcute pain of right hipMedical History PolydipsiaMedical HistoryPulmonary embolismMedical HistoryObstructive sleep apneaMedical HistoryPotts symdromeSurgical HistorycholecystectomySurgical HistoryhysterectomySurgical Historyback surgerySurgical Historyright hand trigger fingers bzujylc21/2022Hospitalization Historysee above [employer] Other Hospital Discharge instructions No data available for this section [facility] No data available for this section [facility] Author Petr Kowalski [facility] December 24, 2022 11:58amNote Date/TimeOct2022 11:58[place] [address] Hospitalist Progress Note Signed Patient: Ruma Carlton MR#: [id number] : 1960 Acct:[id number] Age/Sex: 62 / F Adm Date: 3 Loc: Room: [address] [place] [address] Type: ADM INOo Attending Dr: Petr Kowalski MD Copies to: ~ Date of Service: 12/24/2022 Subjective Subjective Narrative: The patient is a 62 year old woman with a history of HTN, DVT/PE on xarelto, POTS, NIDDM2, paroxysmal SVT who presented to [facility] after a fall. Per the patient [...] got up from sleeping to walk to [facility] and fell- pt reports she felt wobbly after taking the flexeril. shedid not lose consciousness or feel dizzy and denies any chest pain or shortness of breath. Pt's right hip pain worsened over the course of Friday so she went to [facility] for evaluation On arrival there vital signs were within normal limits- ECG with NSR at 99 bpm and no acute ischemic changes. head CT and plain films of the right hip were unremarkable. the patient was noted to havean elevated troponin of 108 on arrival - repeat is 111. pt was transferred to this hospital for further evaluation The patient feels improved after she got Tylenol at [place]- the patient is somewhat irritated at being made to come here, and notes that her main concern in going to the ER was to make sure she didnot have a hip fracture and that shedid not have an ICH given that she is on Xarelto. Interval history: During my encounter this morning, patient remained afebrile and hemodynamically stable. Denies any active complaints except for some pain in her right hip due to the fall. Her CT head at [facility] wasunremarkable for ICH patient remained stable here with [...] 08:59 50 mg DAILY SANAZ Administration Pyridostigmine Garrison 120 mg 12/24/22 09:00 12/24/22 08:36 Pyridostigmine Garrison 60 Mg Tablet PO 12/24/23 08:59 120 [...] thrombosis): (5) Hyponatremia: Plan: mild (126 at [facility])- ?medication related Plan -Repeat Troponin here WNL. Sodium level WNL -CT head done at [facility] with no evidence of intracranial bleed. Patient remained stable with no focal deficits -X-ray of the hip done at [facility] with no evidence of fracture dislocation -Patient [...] is in agreement and comfortable with discharge planningat this time. Documented By: Petr Kowalski MD 12/24/22 11 52 Signed By: <Electronically signed by Petr Kowalski MD> 12/24/22 1158 [facility] Work Phone: Reason for referral (narrative)No reason for referral information availableC[facility] Work Phone: Summary Purpose Family History Relationship Condition Age at Onset Recorded Date/T karie Not Specified Malignant neoplasm of breast Unknown Cerebrovascular accident (CVA)UnknownfatherDiabetes mellitusUnknown Relationship Condition Age at Onset Recorded Date/T karie Not Specified Malignant neoplasm of breast Unknown Cerebrovascular accident (CVA)UnknownfatherDiabetes mellitusUnknownfather DeceasedUnknownHypertensionUnknownChronic kidney diseaseUnknownfamily member DeceasedUnknownNot SpecifiedMalignant neoplasmUnknownHistory of strokeUnknown DeceasedUnknown Relationship Condition Age at Onset Recorded Date/T karie mother Malignant neoplasm of breast Unknown Cerebrovascular accident (CVA)UnknownfatherDiabetes mellitusUnknownfather DeceasedUnknownHypertensionUnknownChronic kidney diseaseUnknownfamily member DeceasedUnknownmotherMalignant neoplasmUnknownHistory of strokeUnknownDeceased Unknown Advance Directives Advance Directive Response Recorded [...] Chief Complaint Elevated Troponin an d Syncope ScreeningReason for VisitElevated troponin Fall Hyponatremia Personal history of DVT (deep vein thrombosis) Right hip pain Chief Complaint Screening mental\physical health Chief Complaint mental\physical heal th F39 F41.9 G47.00 Z79.899Reason for VisitAnxiety Bilateral primary osteoarthritis of knee Depression Right hip pain Chief Complaint F39 F41.9 G47.00 Z79 .899 Amb Documentation weight gain, swelling hand and feetReason for VisitAbnormal TSH Arthritis, rheumatoid Lower extremity edema Urinary frequency Chief Complaint weight gain, swellin g hand and feet FMLA follow upReason for VisitAbnormal TSH Arthritis, rheumatoid Lower extremity edema Urinary frequency Abnormal TSH Diabetes mellitus, type 2 Hypertension Chief Complaint weight gain, swellin g hand and feet FMLA follow up R79.89 I10 E11.9Reason for VisitAbnormal TSH Arthritis, rheumatoid Lower extremity edema Urinary frequency Abnormal TSH Arthritis, rheumatoid Diabetes mellitus, type 2 Hypertension Chief Complaint FMLA follow up R79.89 I10 E11.9Reason for VisitAbnormal TSH Arthritis, rheumatoid Diabetes mellitus, type 2 Hypertension Chief Complaint FMLA follow up R79.89 I10 E11.9 M13.0 R76.0 Z79.899 Q3M R06.09Reason for VisitAbnormal TSH Arthritis, rheumatoid Diabetes mellitus, type 2 Hypertension Chief Complaint FMLA follow up R79.89 I10 E11.9 M13.0 R76.0 Z79.899 Q3M R06.09 R06.9 Amb Documentation CC Adult Risk Stratification [facility]:CABG-HIGH RISKReason for VisitAbnormal TSH Arthritis, rheumatoid Diabetes mellitus, type 2 Hypertension Chief Complaint Admit Date Amb Documentation May 17, 2024 1:57pm [facility]; heart failure-HIGH RISK May 28, 2024 [...] 11:25am CAD (coronary artery disease) December 3:21pm Chief Complaint Admit Date Wellness-HIGH RISK December [...] chronic kidney disease December 22, 2024 3:21pm Additional Source Comments INFORMATION SOURCE (unrecogn ized section and content) DATE CREATED AUTHOR 08/29/2018 [facility] DATE CREATED AUTHOR AUTHOR'S ORGANIZ ATION 03/20/2022 [facility] DATE CREATED AUTHOR AUTHOR'S ORGANIZ ATION 05/29/2022 [facility] DATE CREATED AUTHOR AUTHOR'S ORGANIZ ATION 06/05/2023 [facility] DATE CREATED AUTHOR AUTHOR'S ORGANIZ ATION 08/29/2023 [facility] DATE CREATED AUTHOR AUTHOR'S ORGANIZ ATION 01/12/2025 [facility] DATE CREATED AUTHOR AUTHOR'S ORGANIZ ATION 01/17/2025 [facility] Patient Care team informatio n (unrecognized section and content) Team Status: Active Member Role Status Dates NON STAFF Primary Care Provider Active Team Status: Active Member Role Status Dates NON STAFF Primary Care Provider Active Start: May 10, 2024 Prosper Kingston , DOAttending ProviderActiveStart: May 10, 2024 Team Status: Active Member Role Status Dates NON STAFF Primary Care Provider Active Start: May 11, 2024 Christian Gonzalez ProviderActiveStart: May 11, 2024 Team Status: Active Member Role Status Dates NON STAFF Primary Care Provider Active Start: May 11, 2024 End: May 11isaac Mckeon , DOAttending ProviderActiveStart: May 11, 2024 End: May 11, 2024CRISTOFER Simoneferring ProviderActiveStart: May 11, 2024 End: May 11, 2024 Team Status: Active Member Role Status Dates NON STAFF Primary Care Provider Active Start: May 12, 2024 Virgilio Mckeon DOAttending ProviderActiveStart: May 12, 2024 Team Status: Active Member Role Status Dates NON STAFF Primary Care Provider Active Start: May 17, 2024 Iris Smith CMAAttending ProviderActiveStart: May 17, 2024 Team Status: Active Member Role Status Dates NON STAFF Primary Care Provider Active Start: May 20, 2024 Christian Thomas ProviderActiveStart: May 20, 2024 Team Status: Inactive Member Role Status Dates NON STAFF Primary Care Provider Active Start: May 28, 2024 End: May 28, 2024Christian Thomas ProviderActiveStart: May 28, 2024 End: May 28, 2024 Team Status: Active Member Role Status Dates Anibal Chaudhary MD Primary Care Provider Active Team Status: Active Member Role Status Dates Anibal Chaudhary MD Primary Care Provider Active Start: September 07, 2023 Michael T Toby , MDAttending ProviderActiveStart: September 07, 2023 Team Status: Inactive Member [...] Start: December 02, 2023 End: December 02, 2023Barby Chen NP-CAttending ProviderActiveStart: December 02, 2023 End: December 02, 2023 Team Status: Inactive Member Role Status Dates Anibal Chaudhary MD Primary Care Provider Active Violette Mosquera ProviderActiveObaneris Kowalski MDAttending ProviderActive Team Status: Inactive Member Role Status Elodia Chaudhary MD Primary Care Provider Active Outreach CommunityAttending ProviderActive Team Status: Inactive Member Role Status Elodia Chaudhary MD Primary Care Provider Active Start: February 25, 2023 End: February 25, 2023[facility] CommunityAttending ProviderActiveStart: February 25, 2023 End: February 25, 2023 Team Status: Inactive Member Role Status Elodia Chaudhary MD Primary Care Provide r, Attending Provider Active Start: May 08, 2023 End: May 08, 2023 Team Status: Inactive Member Role Status Elodia Chaudhary MD Primary Care Provider Active Start: July 08, 2023 End: July 07sumi Wagoner NP-CAttending ProviderActiveStart: July 08, 2023 End: July 08, 2023 Team Status: Active Member Role Status Eldoia Chaudhary MD Primary Care Provider Active Start: July 10, 2023 Mariam Pandey RMAAtdelaney ProviderActiveStart: July 10, 2023 Team Status: Inactive Member Role Status Elodia Chaudhary MD Primary Care Provide r, Attending Provider Active Start: August 19, 2023 End: August 19, 2023 Team Status: Inactive Member Role Status ROCKY Huber Attending Provider Active S tart: December 02, 2023 End: December 02, 2023 Team Status: Inactive Member Role Status Dates ROCKY Elias Attending Provider Active S tart: December 04, 2023 End: December 04, 2023 Team Status: Inactive Member Role Status Dates ROCKY Elias Attending Provider Active S tart: December 04, 2023 End: December 04, 2023NON STAFFPrimary Care ProviderActiveStart: December 04, 2023 End: December 04, 2023 Team Status: Active Member Role Status Dates NON STAFF Primary Care Provider Active Start: January 08, 2024 Iris Smith CMAAttending ProviderActiveStart: January 08, 2024 Team Status: Active Member Role Status Dates NON STAFF Primary Care Provide r, Attending Provider Active Start: January 21, 2024 Team Status: Inactive Member Role Status Dates NON STAFF Primary Care Provider Active Start: January 22, 2024 End: January 22, 2024Anibal Chaudhary MDAttarianne ProviderActiveStart: January 22, 2024 End: January 22, 2024 Team Status: Active Member Role Status Dates Anibal Chaudhary MD Primary Care Provider Active Start: October 12, 2024 Natalie Bass ProviderActiveStart: October 12, 2024 Team Status: Inactive Member Role Status Dates Anibal Chaudhary MD Primary Care Provider Active Start: December 21, 2024 End: December 21, 2024Christian Thomas ProviderActiveStart: December 21, 2024 End: December 21, 2024 Team Status: Inactive Member Role Status Dates Anibal Chaudhary MD Primary Care Provider Active Start: December 22, 2024 End: December 22bdul NeetaChristian rogers ProviderActiveStart: December 22, 2024 End: December 22, 2024 Team Status: Active Member Role/Relationship Status Dates Anibal Chaudhary MD Primary Care Provider Active Team Status: Inactive Member Role/Relationship Status Dates Anibal Chaudhary MD Primary Care Provider Active Start: December 21, 2024 End: December 21, 2024Christian Thomas ProviderActiveStart: December 21, 2024 End: December 21, 2024 Team Status: Inactive Member Role/Relationship Status Dates Anibal Chaudhary MD Primary Care Provider Active Start: December 22, 2024 End: December 22Christian Vázquez ProviderActiveStart: December 22, 2024 End: December 22, 2024 Team Status: Active Member Role/Relationship Status Dates Anibal Chaudhary MD Primary Care Provider Active Start: December 29, 2024 Al Gallegos ProviderActiveStart: December 29, 2024 Team Status: Inactive Member Role/Relationship Status Dates Anibal Chaudhary MD Primary Care Provider Active Start: January 11, 2025 End: January 11Christian Vázquez ProviderActiveStart: January 11, 2025 End: January 11, 2025Team MemberRelationshipSpecialtyStart DateEnd Date Anibal Chaudhary MD PCP - GeneralFamily Medicine05/12/23 REASON FOR VISIT (unrecogniz ed section and [...] BE BASED ON THE PRIMARY CLINICAL RECORDS. Insurance [employer] [facility]. provides no warranty or guarantee of the accuracy or completeness of information in this document.
[2025-01-26 16:44] LABS: Hematocrit 43.4 % (36.0-48.0); Hemoglobin 14.3 g/dL (12.0-16.0); Mean Corpuscular HGB Conc 32.9 g/dL (29.9-35.2); Mean Corpuscular Hemoglobin 31.7 pg (26.7-34.0); Mean Corpuscular Volume 96.2 fL (81.0-99.0); Platelet Count 281 10^3/uL (150-450); Red Blood Count 4.51 10^6/uL (4.20-5.40); White Blood Count 6.5 10^3/uL (4.0-11.0)
[2025-01-26 17:06] LABS: Protein Creatinine Ratio Urine 0.51; Total Protein Urine Random 44.7 mg/dL (<=11.9)
[2025-01-26 17:11] LABS: Albumin Level 3.9 g/dL (3.4-5.0); Anion Gap 11.2; Blood Urea Nitrogen 18.0 mg/dL (7.0-18.0); Calcium 9.5 mg/dL (8.5-10.1); Carbon Dioxide 33.5 mmol/L (21.0-32.0); Chloride 100 mmol/L (98-107); Estimated GFR (African America 53 (>=60 mL/min/1.73m^2); Estimated GFR (Non-African Ame 44 (>=60 mL/min/1.73m^2); Glucose 143 mg/dL (74-106); Magnesium 2.9 mg/dL (1.8-2.4); Potassium 3.7 mmol/L (3.5-5.1); Sodium 141 mmol/L (136-145); Uric Acid 4.6 mg/dL (2.6-6.0)
[2025-01-26 17:40] LABS: Glucose Urine UA >=1000 mg/dL (NEGATIVE)
[2025-01-26 18:11] LABS: Cast Seen? NONE SEEN #/LPF (NONE SEEN); Crystals Seen? None Seen #/HPF (None Seen)
== END 2025-01-26 16:18 | disposition home or self-care (01) ==
LOC: LAB 16:18
PROVIDERS: PCP Family Medicine; Visit Provider Internal Medicine
DX: I25.10 Atherosclerotic heart disease of native coronary artery without angina pectoris (principal); N18.30 Chronic kidney disease, stage 3 unspecified; I12.9 Hypertensive chronic kidney disease with stage 1 through stage 4 chronic kidney disease, or unspecified chronic kidney disease; E11.22 Type 2 diabetes mellitus with diabetic chronic kidney disease; N25.81 Secondary hyperparathyroidism of renal origin
CPT/HCPCS: 36415; 80069; 81001; 82306; 82570; 83735; 83970; 84156; 84550; 85027

== ENCOUNTER 2025-02-11 14:28 | Outpatient (OUT) | payer OTHER, SELFPAY ==
--- OUTSIDE RECORDS SUMMARY | 2024-05-27 07:30 | XMS_ITS ---
Author Organization [employer] Address [address] [place] [address] Care Team Providers Care Plant And Maintenance Technician Name Role Phone Pam Wagoner Primary Care Provider [phone] REASON FOR VISIT 3 month f/u Encounters Encounter Location Date Provider Diagnosis [facility] [address] [place] [address] 05/27/2024 Pam Wagoner Plan Of Treatment Next Appt Details Provider Name:Kelsey samuels, 03/11/2025 04:00:00 PM, [address] [place], [address], Progress Notes * NICOLAS HARRISDOB:1960 ( 64 yo F)Acc No.[id number]:05/27/2024 Behavioral Health Patient: Jossie FRANCIS NCIOLAS :?Pam WagonerDOB:1960???Age:63 Y???Sex:Female Date:05/27/2024Phone:[phone]:[address] [address], [place], [place] Subjective: * Chief Complaints: * 3 month f/u * Electronic signature of YVES Fisher on 02/11/2025 at 02:32 PM ESTSign off status: Pending * Provider: Isabel Wagoner Date: 0 05/27/2024 Generated for Printing/Faxing/eTransmitting on:?02/11/2025 02:32 PM EST
--- OUTSIDE RECORDS SUMMARY | 2024-05-27 08:00 | XMS_ITS ---
Author Organization [employer] Address [address] [place] [address] Care Team Providers Care Fur Repair Inspector Name Role Phone Pam Wagoner Primary Care Provider REASON FOR VISIT bh fu Encounters Encounter Location Date Provider Diagnosis [facility] [address] [place] [address] 05/27/2024 Pam Wagoner Plan Of Treatment Next Appt Details Provider Name:Kelsey samuels, 03/11/2025 04:00:00 PM, [address] [place], [address], Progress Notes * NICOLAS HARRISDOB:1960 ( 64 yo F)Acc No.[id number]:05/27/2024 Behavioral Health Patient: Jossie FRANCIS NICOLAS :?Pam WagonerDOB:1960???Age:63 Y???Sex:Female Date:05/27/2024Phone:[phone]:[address]-[address] Subjective: * Chief Complaints: * B h fu Billing Information: * Procedure Codes: * Electronic signature of YVES Fisher on 02/11/2025 at 02:33 PM ESTSign off status: Pending * Provider: Isabel Wagoner Date: 0 05/27/2024 Generated for Printing/Faxing/eTransmitting on:?02/11/2025 02:33 PM EST
--- OUTSIDE RECORDS SUMMARY | 2024-06-22 05:45 | XMS_ITS ---
Author Organization [employer] es Address [address] [place] [address] Care Team Providers Care Sand Tester Name Role Phone Pam Wagoner Primary Care Provider [phone] REASON FOR VISIT r/s 05/27 Encounters Encounter Location Date Provider Diagnosis [facility] [address] [place] [address] 06/22/2024 Pam Wagoner Plan Of Treatment Next Appt Details Provider Name:Kelsey samuels, 03/11/2025 04:00:00 PM, [address] [place], [address], Progress Notes * NICOLAS HARRISDOB:1960 ( 64 yo F)Acc No.[id number]:06/22/2024 Behavioral Health Patient: Jossie FRANCIS NICOLAS :?Pam WagonerDOB:1960???Age:63 Y???Sex:Female Date:06/22/2024Phone:[phone]:[address] [address], [place], [id number] Subjective: * Chief Complaints: * R /s 05/27 Billing Information: * Procedure Codes: * Electronic signature of YVES Fisher on 02/11/2025 at 02:34 PM ESTSign off status: Pending * Provider: Isabel Wagoner Date: 0 06/22/2024 Generated for Printing/Faxing/eTransmitting on:?02/11/2025 02:34 PM EST
--- OUTSIDE RECORDS SUMMARY | 2024-12-23 08:00 | XMS_ITS ---
Author Organization [employer] Address [address] [place] [address] Care Team Providers Care Home Health Provider Name Role Phone Pam Wagoner Primary Care Provider REASON FOR VISIT 6 month f/u Encounters Encounter Location Date Provider Diagnosis [facility] [address] [place] [address] 12/23/2024 Pam Wagoner Plan Of Treatment Next Appt Details Provider Name:Kelsey samuels, 03/11/2025 04:00:00 PM, [address] [place], [address], Progress Notes * NICOLAS HARRISDOB:1960 ( 64 yo F)Acc No.[id number]:12/23/2024 Behavioral Health Patient: Jossie FRANCIS NICOLAS :?Pam WagonerDOB:1960???Age:64 Y???Sex:Female Date:12/23/2024Phone:[phone]:[address] [address], [place], [place] Subjective: * Chief Complaints: * 6 month f/u * Electronic signature of YVES Fisher on 02/11/2025 at 02:33 PM ESTSign off status: Pending * Provider: Isabel Wagoner Date: 1 Generated for Printing/Faxing/eTransmitting on:?02/11/2025 02:33 PM EST
--- OUTSIDE RECORDS SUMMARY | 2025-01-03 10:30 | XMS_ITS ---
Author Organization [employer] [facility] Address [address] [place] [address] Care Team Providers Care Cheese Weigher Name Role Phone Pam Wagoner Primary Care Provider Kelsey Granado Unavailable [phone] REASON FOR VISIT Pt is a 64 [...] MG Tablet1 tablet Orally twice a dayActivepyRIDostigmine [place] 60 MG Tablet1 tablet Orally two tabletsActiveRosuvastatin [...] 01/03/2025 Encounters Encounter Location Date Provider Diagnosis [address] [address] 01/03/2025 Kelsey Granado Mood disorder F39 ; [...] Cook paul, 03/11/2025 04:00:00 PM, [address] [facility], [place], [address], Progress Notes * NICOLAS HARRISDOB:1960 ( 64 yo F)Acc No.[id number]:01/03/2025 Behavioral Health Patient: Jossie FRANCIS NICOLAS :?Kelsey GranadoDOB:1960???Age:64 Y???Sex: FemaleDate:01/03/2025Phone:[phone]:[address] [facility], [address], [place], [id number]:Pam Wagoner Subjective: * Chief Complaints: * P [...] with food Orally Once a day pyRIDostigmine [place] 60 MG Tablet 1 tablet Orally two [...] food Orally Once a day Taking pyRIDostigmine [place] 60 MG Tablet 1 tablet Orally two [...] * Electronic signature of YVES Álvarez on 02/11/2025 at 02:33 PM EST Sign off status: Pending * Provider: Jim Granado Date: 1 Generated for Printing/Faxing/eTransmitting on:?02/11/2025 02:33 PM EST
--- OUTSIDE RECORDS SUMMARY | 2025-02-02 06:27 | XMS_ITS | Continuity of Care Document ---
Author Organization [facility] Address [address] [place] [address] Phone Care Team Providers Care Automation And Controls Manager Name Role Phone Merissa Mayfield MD Primary Care Provider Benito Miller MD Attending Provider Merissa Mayfield MD Attending Provider Demetris Santacruz Attending Provider Al Johnson Attending Provider Care Teams Patient Care Team Team Status: Active Member Role/Relationship Status Dates Merissa Mayfield MD Primary Care Provider Active Visit Care Team Team Status: Active Member Role/Relationship Status Dates Merissa Mayfield MD Primary Care Provider Active Start: November 26, 2024 Christian Feliciano ProviderActiveStart: November 26, 2024 Visit Care Team Team Status: Inactive Member Role/Relationship Status Dates Merissa Mayfield MD Primary Care Provider Active Start: December 21, 2024 End: December 21, 2024Christian Thomas ProviderActiveStart: December 21, 2024 End: December 21, 2024 Visit Care Team Team Status: Inactive Member Role/Relationship Status Elodia Mayfield MD Primary Care Provider Active Start: December 22, 2024 End: December 22Christian Vázquez ProviderActiveStart: December 22, 2024 End: December 22, 2024 Visit Care Team Team Status: Active Member Role/Relationship Status Dates Merissa Mayfield MD Primary Care Provider Active Start: December 29, 2024 Ehab Babita Gallegos ProviderActiveStart: December 29, 2024 Visit Care Team Team Status: Inactive Member Role/Relationship Status Dates Merissa Mayfield MD Primary Care Provider Active Start: January 11, 2025 End: January 11bdul Neeta , MDAttending ProviderActiveStart: January 11, 2025 End: January 11, 2025 Visit Care Team Team Status: Active Member Role/Relationship Status Dates Merissa Mayfield MD Primary Care Provider Active Start: January 26, 2025 Ramy Neeta , MDAttending ProviderActiveStart: January 26, 2025 Patient Care Team Team Status: Inactive Member Role/Relationship Status Dates Merissa Mayfield MD Primary Care Provider Active Start: February 02, 2025 End: February 02bdul Neeta , MDAttending ProviderActiveStart: February 02, 2025 End: February 02, 2025 Chief Complaint and Reason for Visit Chief Complaint Admit Date Wellness-HIGH RISK December 21, 2024 11:25am ckd 3 December 22, 2024 3: 21pm N18.30 I12.9 E11.22 I25.10 N25.81 Octobe r 2024 10:32am 6 week f/u February 02, 2025 10:57am Reason for Visit Admit Date Abnormal TSH [...] chronic kidney disease December 22, 2024 3:21pm CAD (coronary artery disease) January 222024 10:57am CKD (chronic kidney disease) stage 3, GF R 30-59 ml/min February 02, 2025 10:57am Hyperlipidemia February 02, 2025 10:57am Hypertensive chronic kidney disease with stage 1 through stage 4 chronic ki February 02, 2025 10:57am Secondary hyperparathyroidism January 222024 10:57am Type 2 diabetes mellitus wit h diabetic chronic kidney disease February 02, 2025 10:57am Allergies, Adverse Reactions, Alerts Allergen Type Severity Reaction Last Updated Verified Status codeine Allergy Unknown Hives February 02, 2025 8:16am Yes Active metoclopramide Allergy Unknown Hives January 222024 8:16am Yes Active Sulfa (Sulfonamide Antibiotics) Allergy Unknown Hives, rash February 02, 2025 8:16am Yes Active sulfamethoxazole Allergy Unknown Hives February 02, 2025 8:16am Yes Active trimethoprim Allergy Unknown Hives January 8:16am Yes Active Social History Smoking Status Status Start Date End Date Date of Observa tion Ex-smoker (finding) December 22, 2024 3:32pm Observation Status Observation Response Date of Response Legal Sex Female (finding) [facility] 1960 Family History Relationship Condition Age at Onset Recorded Date/T karie mother Malignant neoplasm of breast Unknown Cerebrovascular accident (CVA)UnknownfatherDiabetes mellitusUnknownfather DeceasedUnknownHypertensionUnknownChronic kidney diseaseUnknownfamily member DeceasedUnknownmotherMalignant neoplasmUnknownHistory of strokeUnknownDeceased UnknownHypertensionUnknown Problems Active Problems Problem Diagnosis/Recorded Date Onset Date Stat us Personal history of DVT (amaury p vein thrombosis) December 24, 2022 3:01am Unknown Active Arthritis, rheumatoid May 08, 2023 2:14pm Unkno wn Active Implantable loop recorder present February 02, 2025 11:04am Unknown Active Lower extremity edema August 19, 2023 10:18am Unknown Active Type 2 diabetes mellitus wit h diabetic chronic kidney disease December 22, 2024 2:41pm Unknown Active Screening mammogram for breast cancer December 21, 2024 10:52am Unknown Active Bilateral primary osteoarthr itis of knee May 08, 2023 3:38pm Unknown Active Secondary hyperparathyroidism December 22, 2024 2:42pm Unknown Active Dyspnea on exertion December 21, 2024 12:07pm Unkno wn Active Urinary frequency August 19, 2023 10:18am Unknown Active Diabetes mellitus, type 2 December 24, 2022 2:11am Unk nown Active CKD (chronic kidney disease) stage 3, GFR 30-59 ml/min December 22, 2024 2:40pm Unknown Active CAD (coronary artery disease) January 29, 2024 12:44 pm Unknown Active Anxiety May 08, 2023 3:41pm Unknown A ctive Hypertensive chronic kidney disease with stage 1 through stage 4 chronic kidney disease, or unspecified chronic kidney disease December 22, 2024 2:40pm Unknown Active Depression December 24, 2022 2:14am Unknown Act nilda Wellness examination January 03, 2025 12:11pm Unknow n Active Hyperlipidemia December 23, 2024 4:48pm Unknown A ctive Hyponatremia December 24, 2022 3:03am Unknown Act nilda Elevated troponin December 24, 2022 3:00am Unknown Active Abnormal TSH August 19, 2023 10:18am Unknown Activ e COPD (chronic obstructive pu lmonary disease) December 21, 2024 12:07pm Unknown Active Right hip pain December 24, 2022 3:00am Unknown A ctive Hypertension May 08, 2023 2:14pm Unknown A ctive Fall December 24, 2022 3:00am Unknown Act nilda Medications Medication Status Dose Units Route Directions Qty Days Refills S tart Date Stop Date End Date Reason(s) Instructions Adherence Trazodone 50 mg tablet Discontinued 50 MG PO Gray y at bedtime 30 0Mar2023 12:13pmMay 2023 9:46amBuspirone 10 mg tabletDiscontinued 10MGPOTwice diurl751Vdxfz 2023 9:41amMay 2023 9:45amCholecalciferol (Vitamin D3) 1,250 mcg (50,000 unit) uadgsqpTobumhmsaxck1444IKDPQqykgt hiit79184 July 17, 2023 11:00pmJuly 2023 9:00amRivaroxaban (Xarelto) 20 mg tablet Qhephclkqsxm74ZWHGGikdx886Otl 3rd, 2024 8:06amJuly 2023 7:35am Levothyroxine 50 mcg wnribuSfauhfxscpls32TQDJAJuuoj308Fsw 2023 11:00pmJune 2023 3:40pmSitagliptin Phosphate (Januvia) 100 mg tabletDiscontinued0 .ROUTE.AJIGOHD894Wbyk 2023 8:11amSeptember 2023 8:46amTAKE 1 TABLET BY MOUTH DAILYLevothyroxine 50 mcg xrmyitYejkiyrvohxk55WFEILRthap810Tvzg 2023 3:40pmAugust 2023 3:21pmCholecalciferol (Vitamin D3) 1,250 mcg (50,000 unit) capsuleDiscontinued0.ROUTE.FBVMOOS61Ctqe 2023 9:00amMarch 2024 11:42amTAKE 1 CAPSULE BY MOUTH ONCE A WEEKRivaroxaban (Xarelto) 20 mg tablet Discontinued0.ROUTE.DDKARID215Yxdj 2023 7:35amSeptember 2024 10:54am TAKE 1 TABLET BY MOUTH ONCE DAILYSitagliptin Phosphate (Januvia) 100 mg tablet Discontinued0.ROUTE.LFNIRGR943Gwmbwcwsa 2023 8:46amMarch 2024 11:41am TAKE 1 TABLET BY MOUTH DAILYLevothyroxine 50 mcg nndksfOdqspcechzar48LJBMCNvfwu 900January 2024 4:40pmApril 2024 10:51amLevothyroxine 50 mcg tablet Yfgjceicvfko43VXZDWXqowc720Fbrsw 2024 10:51amJuly 2024 2:24pm Amiodarone 200 mg apglteUxdubiaydccr249NFEUAxvziNefy 2024 11:00pmSeptember 2024 10:31amClopidogrel (Plavix) 75 mg hwusftKsohqg77SWYJHpqcmAnqy 2024 11:00pmComplies with drug therapyLevothyroxine 50 mcg damcguMrrmwdjcaqwn95 NYFRSBywda511Wcld 2024 2:24pmOctober 2024 2:31pmLevothyroxine 75 mcg pjlzrjXkuqde06UUPCDFwdrt412Myasxga 2024 2:31pmComplies with drug therapy Rivaroxaban (Xarelto) 20 mg kxlnidRjkuuydusgse09GREesnovb 2022 11:00pmMay 2023 8:07amTramadol 50 mg vqtucoQutlbuxcnpjh12IINKB2SHzdpsqe 2nd, 2023 11:00pmFebruary 2023 3:10pmKetorolac 0.5 % akikkZwfpfgpcnios0VKEKM EYE-RIGHTFour times dailyOctober 2022 11:00pmFebruary 2023 3:08pm Pyridostigmine [place] 180 mg Tablet Extended IpwehlmFfaednkqypde121PIMHDpfzx December 23, 2022 11:00pmOctober 2022 7:13amSitagliptin Phosphate (Januvia) 100 mg aewmggWmppwrserwef015ZKYWIgclxCzufnfl 2022 11:00pmJune 2023 8:11amAcetaminophen 500 mg VkylhvGkwfgbjngtwd269SRYTBznso daily as needed for PainOctober 2022 11:00pmMarch 2024 11:42amPyridostigmine [place] 60 mg ilmsypRczkrj405TNALPoez times dailyOctober 2022 11:00pmComplies with drug therapyPyridostigmine [place] 60 mg CcwfczAecoyrdbhpwb412UDHUBkoqi daily00 December 23, 2022 11:00pmFebruary 2023 3:09pmLamotrigine 150 mg tablet Ypkioffzcogu328PJTLEnoqbDozthjta 2018 12:00amApril 2023 12:44pm Warfarin 10 mg jvdzffNcaezmahsjun6GJZGTcmvyRcbuivqi 2018 12:00amOctober 2022 2:03amMetoprolol Succinate 100 mg tablet extended release 24 hr Zdldutkhmyms25SHIPAohfoTbhefkcr 2018 12:00amOctober 2023 9:11am Venlafaxine 150 mg capsule,extended release 48yjPeuyoq199RVIDGemesFqduaxqk 2018 12:00amComplies with drug therapyLisinopril 5 mg cmvewbVukoecrcvabv5KSIP DailyFebruary 2018 12:00amOctober 2022 2:02amHydroxychloroquine 200 mg kaixdrBpaytangsynw661IBIHPmybz dailyFebruary 2018 12:00amMarch 2024 11:42amTemazepam (Restoril) 15 mg nvchnlsOrxveckqvgbh68UDNPIdnma at bedtime May 08, 2023 12:00amFebruary 2023 3:37pmHydrocodone-Acetaminophen 5-325 mg gygxrrTtdmojygendz7RUBMARmxyt 6 hours as needed for nzzq0885Jquswvii 2023May 2023 9:46amPrimary osteoarthritis of both knees Hyponatremia Pain of right hip Bilateral primary osteoarthritis of knee Hypo-osmolality and hyponatremia Pain in right hipBuspirone 10 mg rmzueyRpburqzkbyai54USDJVcdgg rbvkp643Osjvmolv 2023 12:00amMarch 2023 9:41amTrazodone 50 mg eyfrzsMnvyrxhmlihz26DQ PODaily at uyodeaa282Cbzzmcva 2023 12:00amMarch 2023 12:13pm Cariprazine (Vraylar) 3 mg huwesdlVfxypydyasqw2RHFVGogftVpt 2023 11:00pm May 28, 2024 11:42amQuetiapine (Seroquel) 25 mg ukeafwHnydmjtnqrxe55BREUQsybm at bedtimeMay 2023 11:00pmAugust 2023 1:29pmTramadol 50 mg tablet Kcyioezdqdvv11VCHQHisst daily as neededMa2023 11:00pmOctober 2023 9:20amFurosemide 40 mg yeqtsjXvkvuxplcwxe70HYWONponpTlprebw 2023 11:00pm December 22, 2024 2:31pmAtorvastatin 40 mg lghijxRhxwkblbtxsc23UAJJBaqedFqdsrmq 2023 11:00pmMar 2024 11:42amSpironolactone 25 mg tabletDiscontinued 25MGPODailyOctober 2023 11:00pmOctober 2023 9:14amMetoprolol Tartrate 25 mg axdjkmZkirpcyzfyph09.5MGPODailyOctcarroll county memorial hospital 2023 11:00pm[facility] 2024 11:40amAspirin 81 mg tablet,delayed release (DR/EC)Vyfeeulkatkv68BMPD DailyOctcarroll county memorial hospital 2023 11:00pmSeptember 2024 10:31amSpironolactone 25 mg jxszgwOrbixz93.5MGPODailyFormerly [facility] 2023 9:12amComplies with drug therapy Fluticasone Furoate-Vilanterol (Breo Ellipta) 100-25 mcg/dose blister with deviceDiscontinuedINHALATIONFormerly [facility] 2023 11:00pmProm[facility] 2024 11:39am Magnesium Oxide 400 mg magnesium kpalsdQwhzfhsmxqly319HUPRDetmt dailyFormerly [facility] 2023 11:00pmSeptember 2024 10:30amMirtazapine 15 mg tablet Tzbiufkoqvqm07RWSEUnwxtLbuazqx 2023 11:00pmProm[facility]ica [facility] 2024 11:40am Furosemide 40 mg lefyduBbweuw82CMXSMozoc dailyFormerly [facility] 2024 2:29pmComplies with drug therapyMetoprolol Succinate 25 mg tablet extended release 24 hrActive 25MGPOdaLake [facility] 2024 12:00amComplies with drug therapyRosuvastatin 20 mg seuodsQhbzli77VXVFEzfczCdyzb 2024 12:00amComplies with drug therapy Dapagliflozin Propanediol (Farxiga) 10 mg bpflqdFinydn64OXFUCrmwlQzffi 2024 12:00amComplies with drug therapySacubitril-Valsartan (Entresto) 24-26 mg tablet Discontinued0.5TABPOTwice dailyPromedica Memorial Hospital 2024 12:00amOctober 2024 2:38pm Ondansetron Hcl 4 mg ymwnpnVdfatunwuzwc7FOPFZzgmy 8 hours as needed for nausea and pyhfubif805Trhpn 2024 12:00amSeptember 2024 10:30amRivaroxaban (Xarelto) 20 mg qtqhleExvnea48PFLBZrlfcUmdjrxd 2024 2:29pmComplies with drug therapySacubitril-Valsartan (Entresto) 24-26 mg tabletActive0.5TABPODaily December 22, 2024 2:38pmComplies with drug therapyRivaroxaban (Xarelto) 20 mg tabletDiscontinued0.ROUTE.BPAOOCL280Yeoreuodw 2024 10:54amOctober 2024 2:31pmTAKE 1 TABLET BY MOUTH ONCE DAILYFluticasone Propion-Salmeterol (Advair Diskus) 250-50 mcg/dose blister with lcqsxtLxtbsd5DPRFYRXKDXWKLPzyeu dailyFebruary 02, 2025 12:00amComplies with drug therapyIpratropium [place] (Atrovent Hfa) 17 mcg/actuation HFA aerosol cnotodnQtxjyw6UKTVEFDQYFLONSFzln times daily as neededFebruary 02, 2025 12:00amComplies with drug therapy Ergocalciferol (Vitamin D2) 1,250 mcg (50,000 unit) nkioqfxGwovru6281WQNKHczsxc wkhx620XpfsfonaFebruary 02, 2025 12:00amComplies with drug therapyLamotrigine 200 mg btynsuEbclja392PWBYGibmgOodxa 2023 11:00pmComplies with drug therapy Mupirocin 2 % pfivqaclHgpynsarzzbd0DZVRZOEVGORONLhscf dailyAuchinle comprehensive health care facilityt 2023 11:00pmMar 2024 11:42amFreeTextSi application Externally Twice a day; Note: Source Status: Taking; Refills: 1; Qty: 22Gram; Provider: Chaparro Reynoso Sodium Chloride 1,000 mg tablet,tfayxxuSkgjhszvhbdf4WIWONQwkgqPbvxcs 2023 11:00pmMar 2024 11:41amFreeTextSi tablet Orally daily; Note: Source Status: Start; Refills: 1; Qty: 90 Tablet; Provider: Chaparro Craven ELevothyroxine 50 mcg oiswmdRbdonighqfnj50OSYFVGvxnn001Flvwdd 2023 3:21pmJanuary 2024 4:40pm Procedures Procedure Date Performed Status US renal BI January 11, 2025 9:33am comple chantelle Relevant Diagnostic Tests and/or Laboratory Data Laboratory Results Test Collection Date/Time Result Date/Time Result Interpretation Reference Range Result Comment Performing Site Free Thyroxine December 29, 2024 11:44am December 29, 2024 11:44am 1.24 ng/dL 0.76-1.46Thyroid Stimulating Hormone 3rd GenOct2024 11:44amOctober 2024 11:44am9.512 u[iU]/mLAbove high normal0.358-3.740B-Type Natriuretic PeptideDecember 29, 2024 11:44amOctober 2024 11:68kt877.0 pg/mL<=900.0Anion GapDecember 29, 2024 11:44amOctober 2024 11:44am12.7Parathyroid Hormone (Intact)January 26, 2025 4:32pmNovember 2024 4:32pm83 pg/mLAbnormal (applies to non-numeric results)15-65Performed at: [facility] [id number] Director: Spencer Martinez PhD, Phone: [phone]-Ljbxcft Vitamin D TotalJanuary 26, 2025 4:32pmNovember 2024 4:32pm24.3 ng/mL<20 ng/mL Vit D hiouazsit92-<30 ng/mL Vit D rjbdbmdotfqe90-291 ng/mL Vit D sufficient>100 ng/mL Potential ToxicityMagnesium LevelJanuary 26, 2025 4:32pmNovemb2024 4:32pm2.9 mg/dLAbove high normal1.8-2.4Uric Acid January 26, 2025 4:32pmNovemb2024 4:32pm4.6 mg/dL2.6-6.0Anion Gap January 26, 2025 4:32pmNovember 2024 4:32pm11.2HematocritJanuary 26, 2025 4:32pmNovemb2024 4:32pm43.4 %36.0-48.0Urine Other CastsJanuary 26, 2025 4:35pmNONE SEEN #/LPFNONE SEENUrine Random CreatinineJanuary 26, 2025 4:35pmNov2024 4:35pm87.41 mg/dL20.00-300.00BUN/Creatinine Ratio December 29, 2024 11:44amOctober 2024 11:44am15.6AlbuminNov2024 4:32pmNovember 2024 4:32pm3.9 g/dL3.4-5.0HemoglobinNov2024 4:32pmNovember 2024 4:32pm14.3 g/dL12.0-16.0Urine Other CrystalsNov2024 4:35pmNone Seen #/HPFNone SeenUrine Protein/Creatinine RatioNovemb2024 4:35pmNov2024 4:35pm0.51Blood Urea NitrogenOct2024 11:44amOctober 2024 11:44am25.0 mg/dLAbove high normal7.0-18.0 BUN/Creatinine RatioNovemb2024 4:32pmNovemb2024 4:32pm14.5Mean Corpuscular HemoglobinNov2024 4:32pmNovemb2024 4:32pm31.7 pg 26.7-34.0Urine BacteriaNov2024 4:35pmTRACE #/HPFAbnormal (applies to non-numeric results)NONE SEENUrine Random Total ProteinNov2024 4:35pm January 26, 2025 4:35pm44.7 mg/dLAbove high normal<=11.9Calcium LevelOct2024 11:44amOctober 2024 11:44am9.2 mg/dL8.5-10.1Blood Urea Nitrogen January 26, 2025 4:32pmNovember 2024 4:32pm18.0 mg/dL7.0-18.0Mean Corpuscular Hemoglobin ConcentNov2024 4:32pmNovemb2024 4:32pm 32.9 g/dL29.9-35.2Urine BilirubinNov2024 4:35pmNEGATIVENEGATIVE Chloride LevelOctober 2024 11:44amOctober 2024 11:27ym721 mmol/L98-107 Calcium LevelNov2024 4:32pmNovember 2024 4:32pm9.5 mg/dL8.5-10.1 Mean Corpuscular VolumeNovember 2024 4:32pmNovember 2024 4:32pm96.2 fL 81.0-99.0Urine Occult BloodNovember 2024 4:35pmTRACE-INEGATIVECarbon Dioxide LevelOctober 2024 11:44amOctober 2024 11:44am32.1 mmol/LAbove high smgmju99.0-32.0Chloride LevelNovember 2024 4:32pmNovember 2024 4:16ll858 mmol/D35-535Pjrz Platelet VolumeNovember 2024 4:32pmNovember 2024 4:32pm9.8 fL9.5-13.5Urine AppearanceNovember 2024 4:35pmCLEARCLEAR CreatinineOctober 2024 11:44amOctober 2024 11:44am1.60 mg/dLAbove high normal0.55-1.02Carbon Dioxide LevelNovember 2024 4:32pmNovember 2024 4:32pm33.5 mmol/LAbove high galbsh30.0-32.0Platelet CountNovember 2024 4:32pmNovember 2024 4:09oo441 10 3/nN454-626Bwmiz ColorNovember 2024 4:35pmYELLOWYELLOWEstimated GFR ()December 29, 2024 11:44am December 29, 2024 11:53bx46Fjqzf low normal>=60 mL/min/1.73m 2CreatinineNovember 2024 4:32pmNovember 2024 4:32pm1.24 mg/dLAbove high normal0.55-1.02 Red Blood CountNovember 2024 4:32pmNovember 2024 4:32pm4.51 10 6/uL 4.20-5.40Urine Glucose (UA)January 26, 2025 4:35pm>=1000 mg/dLAbnormal (applies to non-numeric results)NEGATIVEEstimated GFR (Non- December 29, 2024 11:44amOctober 2024 11:71la13Gogpl low normal>=60 mL/min/1.73m 2Estimated GFR ()January 26, 2025 4:32pmNovember 2024 4:67bz02Zpydg low normal>=60 mL/min/1.73m 2Red Cell Distribution Width January 26, 2025 4:32pmNovember 2024 4:32pm13.1 %11.0-15.0Urine Ketones January 26, 2025 4:35pmNEGATIVE mg/dLNEGATIVEGlucose LevelOctober 2024 11:44amOctober 2024 11:36zd312 mg/dLAbove high yuntct99-447Lxatpsnrq GFR (Non- AmericanNov2024 4:32pmNovember 2024 4:75kj66Pfhnt low normal>=60 mL/min/1.73m 2Corrected White Blood CountNov2024 4:32pmNovemb2024 4:32pm6.5 10 3/uL4.0-11.0Urine Leukocyte Esterase January 26, 2025 4:35pmNEGATIVENEGATIVEPotassium LevelOctober 2024 11:44amOctober 2024 11:44am3.8 mmol/L3.5-5.1Glucose LevelNovember 2024 4:32pmNovember 2024 4:27fx078 mg/dLAbove high conujj33-390Yninv Mucus January 26, 2025 4:35pmNONE SEENNONE SEENSodium LevelOctober 2024 11:44am December 29, 2024 11:33uw807 mmol/W491-369Mltlxezjb LevelNovember 2024 4:32pmNovember 2024 4:32pm3.7 mmol/L3.5-5.1Urine NitriteNov2024 4:35pmNEGATIVENEGATIVESodium LevelNovember 2024 4:32pmNovember 2024 4:31td285 mmol/F762-668Klail pHNovember 2024 4:35pm6.55.0-9.0Phosphorus LevelNov2024 4:32pmNovember 2024 4:32pm3.9 mg/dL2.6-4.7Urine ProteinNovember 2024 4:35pm30 mg/dLAbnormal (applies to non-numeric results)NEG/TRACEUrine RBCNov2024 4:59kt9-6 #/HPF0-2Urine Specific GravityNov2024 4:35pm1.0101.005-1.025Urine Squamous Epithelial Cells January 26, 2025 4:35pmRARE #/LPFNONE/RAREUrine UrobilinogenNov2024 4:35pm0.2 EU/dL0.2-1.0Urine WBCNovember 2024 4:35pmNONE SEEN #/HPFNONE SEEN Diagnostic Imaging Reports Author Prosper Mckeon [facility] HospitalAuthoredOctcar[facility] 2024 1:53pmReportDictated Date/TimeDictated ByStatusRadiology ReportOctober 2024 1:53pmJorge CroninMarymount Hospital [place] [address] [place] [address] Ultrasound Report Signed Patient: Ruma Carlton MR#: [id number] : 1960 Acct:[id number] Age/Sex: 64 / F ADM Date: 5 Loc: Room: Type: [facility] Attending Dr: Ramy Santacruz MD Ordering Provider: Ramy Sanatcruz MD Date of Service: 01/11/25 US/US renal [...] Mckeon M.D. 01/11/2025 1:54 PM Dictation Location: [place] [address] Tech: Ghazala Durham Transcribed By: PWS 01/11/25 1354 Dictated By: Prosper Mckeon DO 01/11/25 1353 Signed By: <Electronically signed by Prosper Mckeon DO in OV> 01/11/25 1354 Vital Signs Vital Reading Result Reference Range Collection Date/Time Height 62 [in_i] December 21, 2024 10:76kmMbfabk709.12 kgSeptember 2024 10:13amHeart Rate48 /wto87-433Yrpcgcxyp 2024 10:13amRespiratory rate14 /lak95-66 December 21, 2024 10:13amOxygen saturation by Pulse %95-100 December 21, 2024 10:13amBP Cnfuuiyx97 mm[Hg]100-140September 2024 10:13amBP Hjdvleufu33 mm[Hg]60-100September 2024 10:13amBMI (Body Mass Index)43.6 kg/x1Fnncoerzr 2024 10:80bdUroezs20 [in_i]December 22, 2024 2:11ovIdlzvd004.52 kgOctober 2024 2:23pmBody Wwafrfkljgt62.9 [degF] 97.6-99.0October 2024 2:23pmHeart Rate49 /hvz25-203Rnkafvn 2024 2:23pm Respiratory rate18 /xwr49-66Ygmqqrv 2024 2:23pmOxygen saturation by Pulse %95-100October 2024 2:23pmBP Gdjtryqd98 mm[Hg]100-140October 2024 2:23pmBP Grzqnxsog82 mm[Hg]60-100October 2024 2:23pmBMI (Body Mass Index)43.7 kg/g6Epaztsx 2024 2:57haWziumt99 [in_i]February 02, 2025 11:88xtFdocoo049.95 kgNovember 2024 11:00amHeart Rate57 /cil25-992Czvixsuy 2024 11:00amRespiratory rate16 /cwp06-65Kmsodozu 12th, 2025 11:00amOxygen saturation by Pulse wiuhbbtx95 %95-100November 12th, 2025 11:00amBP Ejprxkpa819 mm[Hg]100-140Nov2024 11:00amBP Snqrhrphr96 mm[Hg]60-100Nov2024 11:00amBMI (Body Mass Index)43.5 kg/v3ZyrexoduFebruary 02, 2025 11:00am Advance Directives Advance Directive Response Recorded Date/ Time Advance Directives No April 07, 2018 12:57pm Insurance Providers Guarantor Ruma Dobbins Brandt Address [address] [phone] Info.Home Phone: Coverage Status Update:2025 Payer Group Member ID Coverage Type Subscriber Relationship to Subscriber Effective Date Expiration Date MMO [employer] Id: [id number] K Brandt Id: [id number] [address] [address] Home Phone: Email: [email or web address] [facility] Id: [id number] K Brandt Id: [id number] [address] [address] Home Phone: Email: [email or web address] [id number] K Brandt Id: [id number] [address] [address] Home Phone: Email: [email or web address] County Hospital [employer] [employer] Id: [id number] K Brandt Id: [id number] [address] [address] Home Phone: Email: [email or web address] Encounter Location(s) Arrival/Admit Date Discharge/Departure Date Discharge/Departure Disposition Provider(s) Non-patient / Non-visit -[facility] OutPt 2024 4:12pm Christopher E Angela , MDDeparted Physician/Provider [facility] 11:25amSeptember 2024 11:57amDischarged to home care or self care (routine discharge)Merissa Mayfield , HECTOReparted Physician/Provider Office [facility]Oct[facility] 2024 3:21pmOctober 2024 3:46pmDischarged to home care or self care (routine discharge)To [facility]-patient / Czl-cgdgv-[facility] December 29, 2024 12:44pmEhab A EltahawyDeparted Clinical-Ultrasound [place] January 11, 2025 10:32amOctober 2024 10:33amDischarged to home care or self care (routine discharge)To [facility]-patient / Jih-zqzsv-Pgatc [facility] 2024 4:32pmAHECTOR Vázquezeparted Physician/Provider Office Visit-[facility] 2024 10:57amNoveer 2024 11:25amDischarged to home care or self care (routine [...] kidney disease Unknown December 22, 2024 3:21pm CAD (coronary artery disease) Unknown No vember , 2025 10:57am CKD (chronic kidney disease) stage 3, GFR 30-59 ml/min Unknown February 02, 2025 10:57am Hyperlipidemia Unknown February 02, 2 025 10:57am Hypertensive chronic kidney disease with stage 1 through stage 4 chronic ki Unknown February 02, 2025 10:57am Secondary hyperparathyroidism Unknown No 2024 10:57am Type 2 diabetes mellitus wit h diabetic chronic kidney disease Unknown February 02, 2025 10:57am Assessments Diagnosis Onset Date Resolution Status Admit Date Abnormal TSH acuteSeptember 2024 11:25amCOPD (chronic obstructive pulmonary disease) acuteSeptember 2024 11:25amDyspnea on exertionacuteSeptember 2024 11:25amScreening mammogram for breast canceracuteSeptember 2024 11:25am Type 2 diabetes mellitus with diabetic chronic kidney diseaseacuteSeptember 2024 11:25amWellness examinationacuteSeptember 2024 11:25amCAD (coronary artery disease)acuteOctober 2024 3:21pmCKD (chronic kidney disease) stage 3, GFR 30-59 ml/minacuteOctober 2024 3:21pmHyperlipidemia acuteOctober 2024 3:21pmHypertensive chronic kidney disease with stage 1 through stage 4 chronic kiacuteOctober 2024 3:21pmSecondary hyperparathyroidismacuteOctober 2024 3:21pmType 2 diabetes mellitus with diabetic chronic kidney diseaseacuteOctober 2024 3:21pmCAD (coronary artery disease)acuteNovember 2024 10:57amCKD (chronic kidney disease) stage 3, GFR 30-59 ml/minacuteNovember 2024 10:57amHyperlipidemiaacuteNovember 2024 10:57amHypertensive chronic kidney disease with stage 1 through stage 4 chronic kiacuteNovember 2024 10:57amSecondary hyperparathyroidismacute February 02, 2025 10:57amType 2 diabetes mellitus with diabetic chronic kidney diseaseacuteNovember 2024 10:57am Plan of Treatment Author Ramy Santacruz [facility] CampusredOctober 2024 4:52pmWill continue Plavix atorvastatin and metoprolol. Advised to [...] to have avoid NSAIDs or any other jlns-lcx-buzbkaf nephrotoxic medication. Her blood pressure is relatively [...] monitoring of LFTs and lipid profile. Author Mersisa Mayfield [facility]Auth[facility]October 2024 12[facility] ordered Pt agrees to referral to Pulmonology. 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 Author Ramy Santacruz [facility] HospitalAuthoredNovember 2024 11:26amShe has a CKD likely due to the longstanding DM HTN and chronic cardiorenal syndrome. Her most with no hematuria. Recent serum creatinine is 1.2 mg/dL. Her renal ultrasound showed unremarkable kidneys. She has a mild proteinuria I discussed with her the importance of good DM and HTN control to slow down the progression of CKD. I have advised her to have avoid NSAIDs or any other irjq-rjm-tzqwppo nephrotoxic medication. Her blood pressure is Controlled. Will Continue Entresto once daily. I have advised her to to monitor blood pressure at home and call office if it stays above 140 over 90 mmHg or below 100 over 60 mmHg. Will continue Farxiga and Entresto for renal protection. Advised to continue to follow with PCP for DM management. She has a secondary hyperparathyroidism due to the vitamin D deficiency. I have prescribed oral vitamin D once weekly. Will continue statins. Advised her to continue to follow with PCP for monitoring of LFTs and lipid profile. Will continue Plavix atorvastatin and metoprolol. Advised to continue to follow with cardiology for DM management. Future Tests Future scheduled test information is unavailable Pending Tests Test Name Ordered Date Scheduled Date Renal Function Panel December 22, 2024 2:42pm 6 Weeks MM screening mammo BI w/CAD December 21, 2024 10:52am Immunofixation, (LOPEZ), UrineNovember 2024 11:22am6 MonthsRenal Function PanelNovember 2024 11:22am6 Months Future Visits Future appointment information is unavailable Future Procedures Procedure Name Ordered Date Scheduled Date Dipstick and Microscopic December 22, 2024 2:42p m 6 Weeks Uric Acid December 22, 2024 2:42pm 6 Weeks Thyroid Stim Hormone w/Rflx December 21, 2024 10:51am Dipstick and MicroscopicNov2024 11:22am6 MonthsHemogram CBC Without DiffNovember 2024 11:22am6 MonthsImmunofixation,SerumNov2024 11:22am6 MonthsFree K+L LT Chains, Qn, SNovember 2024 11:22am6 Months MagnesiumNovember 2024 11:22am6 MonthsProtein Creat Ratio Ur Random February 02, 2025 11:22am6 MonthsParathyroid Hormone IntactNov2024 11:22am6 MonthsUric AcidNov2024 11:22am6 MonthsVitamin D 25 Hydroxy TotalNov2024 11:22am6 Months Future Medications Future medication information is unavailable Patient Instructions Patient instructions are unavailable
--- OUTSIDE RECORDS SUMMARY | 2025-02-02 11:20 | XMS_ITS | Encounter Summary ---
Author Organization [facility] Address [address] [place] [address] Care Team Providers Care Briquette Operator Name Role Phone Merissa Mayfield MD Primary Care Provider [phone] Encounter Details DateTypeDepartmentCare Team (Latest Contact Info)Fztqjsmcjed64/12/2025 11:20 AM ESTAncillary Procedure [facility] [address] [place] [address] Awareness of heartbeats Social History Tobacco UseTypesPacks/DayYears UsedDateSmoking Tobacco: JjtezpRzankvetji012 Smokeless Tobacco: NeverAlcohol UseStandard Drinks/WeekCommentsYes0 (1 standard [...] like food, housing, medical care, and heating?Somewhat hard02/18/2025PHQ-2AnswerDate RecordedPatient Health Questionnaire-2 Diyls617UT Safety & Environment AnswerDate RecordedWithin the last [...] were you homeless or living in a longterm (including now)?No05/11/2024 Hunger Vital SignAnswerDate RecordedWithin the past 12 months, you worried that your food would run out before you got the money to buymore.Never true05/11/2024 Ran Out of Food in the Last YearNot on file05/11/2024CommentsNoSex and Gender InformationValueDate RecordedSex Assigned at IegdtPtuapw33/19/2025 3:28 PM EDTLegal HsdBrxixw84/29/2022 11:12 PM EDTGender BmqttcafTtahrp39/19/2025 3:28 PM EDTSexual OrientationHeterosexual or Gayevkvf06/19/2025 3:28 PM EDTdocumented as of this encounter Plan of Treatment Not on file documented as of this encounter Procedures Procedure NamePriorityDate/TimeAssociated DiagnosisCommentsCARDIAC DEVICE CHECK CHECK - RVCFVPAizbjgd36/12/2025 12:20 PM EST Awareness of heartbeats documented in this encounter Results * CARDIAC DEVICE CHECK - REMOTE - LOOP RECORDER (ILR) (02/02/2025 12:20 PM EST) Specimen (Source)Anatomical Location / LateralityCollection Method / Volume Collection TimeReceived Time Narrative Authorizing ProviderResult TypeResult StatusPaul Gilles MDCV IMPLANTABLE CARDIAC DEVICE PROCEDURESFinal ResultPerforming OrganizationAddressCity/State/ZIP Code Phone Number CPACS documented in this encounter Visit Diagnoses Diagnosis Awareness of heartbeats documented in this encounter Care Teams Team MemberRelationshipSpecialtyStart DateEnd Date Merissa Mayfield MD [address] [facility] - Ehyowuy53/1/22documented as of this encounter
--- OUTSIDE RECORDS SUMMARY | 2025-02-03 06:45 | XMS_ITS ---
Author Organization [employer] [facility] Address [address] [place] [address] Care Team Providers Care Sr Solutions Consultant Name Role Phone Pam Wagoner Primary Care Provider [phone] Kelsey Granado Unavailable [phone] REASON FOR VISIT Pt is a 64 year old female here today for a 1 month f/u Encounters Encounter Location Date Provider Diagnosis [facility] [address] [place] [address] 02/03/2025 Kelsey Granado Plan Of Treatment Next Appt Details Provider Name:Kelsey samuels, 03/11/2025 04:00:00 PM, [address] [place], [address], Progress Notes * NICOLAS HARRISDOB:1960 ( 64 yo F)Acc No.[id number]:02/03/2025 Behavioral Health Patient: Jossie FRANCISNICOLAS :?Kelsey GranadoDOB:1960???Age:64 Y???Sex: FemaleDate:02/03/2025Phone:[phone]:[address], [id number]:Pam Wagoner Subjective: * Chief Complaints: * P t is a 64 year old female here today for a 1 month f/u Billing Information: * Procedure Codes: * Electronic signature of CONNIE ÁlvarezP on 02/11/2025 at 02:33 PM EST Sign off status: Pending * Provider: Jim Granado Date: 1 04/05/2024 Generated for Printing/Faxing/eTransmitting on:?02/11/2025 02:33 PM EST
--- NOTE | 2025-02-11 14:32 | MM_ITS ---
Patient Name: NICOLAS HARRIS MR#: [id number] : 1960 Exam Date: 02/11/2025 Ordering Doctor: DR ANIBAL CHAUDHARY M.D. RADIOLOGY REPORT PROCEDURE: MM TOMOSYNTHESIS SCREENING BI COMPARISON: MG MAMM SCREEN DELROY W CAD, 12/15/2018. MG MAMM DELROY SCRN W CAD DIG, 11/23/2013. INDICATIONS: Screening Calculator Name NCI Breast Cancer Risk Assessment Tool 5 Year Breast Cancer Risk 2.90% Lifetime Breast Cancer Risk 12.10% Personal Breast Cancer No Personal Ovarian Cancer No Treatments None Family Cancers Mother with breast cancer at age ~60. LOCATION: [facility] BREAST COMPOSITION: There are scattered areas of fibroglandular density. FINDINGS: RIGHT BREAST: No significant suspicious finding. Benign-appearing calcifications are present. LEFT BREAST: No significant suspicious finding. There is a cardiac monitoring device along the left chest wall. Benign-appearing lymph nodes are noted along the left chest wall. DIAGNOSTIC CATEGORY 2--BENIGN FINDING. NO CHANGE FROM COMPARISON. RECOMMENDATIONS: ROUTINE MAMMOGRAM AND CLINICAL EVALUATION IN 12 MONTHS. Dictated by: Ranjeet Fleming MD on 02/11/2025 at 16:06 Approved by: Ranjeet Fleming MD on 02/11/2025 at 16:10
--- OUTSIDE RECORDS SUMMARY | 2025-02-11 14:33 | XMS_ITS | Clinical Summary ---
Author Organization [facility] Address [address] [place] [address] Care Team Providers Care Machine Heddle Cleaner Name Role Phone Merissa Mayfield MD Primary Care Provider [phone] Allergies Active AllergyReactionsCriticalityNoted InmzWwlxoxomUifckewBssrm69/19/2014 GdwrxjunhczllbLqwgiuk86/21/2010 Other Reaction(s): Intolerance, involuntary movements, other Metoclopramide UhhCpmdo18/19/2014Sulfa (Sulfonamide Antibiotics)Other03/11/2014 Medications MedicationSigDispense QuantityRefillsLast FilledStart DateEnd [...] mg) by mouth before breakfast. 90 tablet ctive Additional Information Patient taking differently:40 mg oral2 [...] by mouth in the morning. 90 tablet /ctive Additional Information Patient taking differently: 12.5 mgoral Daily, Reported on 01/17/2025 ondansetron (Zofran) 4 mg tablet Take 8 mg by mouth every 8 (eight) hours if needed.5Active clopidogrel (Plavix) 75 mg tablet Indications:Coronary artery disease due to lipid rich plaqueTake 1 tablet (75 mg) by mouth in the morning. 90 tablet 304/455094/6Active mirtazapine (Remeron) 15 mg tablet Pt not emnkrv76Discontinued(Med List Cleanup) fluticasone furoate-vilanteroL (Breo Ellipta) 100-25 [...] on diagnostic imaging of heart and coronary ynxhdfiwcqt13/22/2025bnormal stress test07/06/2024oronary artery wrhubdo5607/06/2024Mood usdkayix84/27/2025 Umfbyyunaccscu45/19/2025 Assessment & Plan (05/12/2024 3:04 AM EST): Continue with home medication, levothyroxine 50 mcg tablet p.o. daily Odgvdvb8005/11/20242688Rufwfrms55/18/2025ute on chronic congestive heart failure, unspecified heart failure type05/11/2024NSTEMI (non-ST elevated myocardial infarction)05/11/2024Fluid enuszaus03/18/2025Status post four vessel coronary artery wwzzix8112/15/2023Multiple vessel coronary artery rzpjdzy5212/10/2023Multi- vessel coronary artery yauxjnrw20/16/2024oronary artery disease involving menominee coronary artery of menominee heart without angina /14/2024Unstable kuaxlz5012/05/2023iabetes mellitus type II, non insulin hjpjckijl67/11/2024 Assessment & Plan (05/12/2024 3:04 AM EST): [...] to medications/ or contrast, stroke, . 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 Will increase pyridostigmine to 120 mg qid, continue adequate hydration, additional salt to diet. Monitor b/p and SBP 140-150 is ok with known POTS. Chest pain01/22/2022 Assessment & Plan (12/04/2023 4:11 PM EDT): Chest tightness and LOPEZ will plan for cardiac cath in light of severe coronary calcifications noted, DM, HTN, HPL, abnormal ECG Pmmefmeuijtf02/01/2022ulmonary lomfcqvf34/01/2022upraventricular tachycardia 01/22/2022 Assessment & Plan (09/11/2022 9:41 AM EDT): Stable- continue toprol Primary pulmonary mcyjospufiyd42/18/2014 Assessment & Plan (09/11/2022 9:40 AM EDT): Reports continued LOPEZ Will repeat echocardiogram to assess cardiac function and rt sided pressures Chronic pulmonary heart wteylty0904/14/2013Morbid xplyach1504/14/2013 Assessment & Plan (12/04/2023 4:01 PM EDT): Managed per PCP Recommended weight loss Obstructive sleep apnea hnotnoll96/22/2014 Assessment & Plan (05/12/2024 3:04 AM EST): Per primary team to consider addition of CPAP/BiPAP nightly Benign essential olioqxojvuqu59/19/2014 Assessment & Plan (05/12/2024 3:07 AM EST): [...] AM EDT): Hypertension is stable Continue toprol Wlckerh0204/11/2013 Assessment & Plan (09/11/2022 9:42 AM EDT): Continued LOPEZ will repeat echocardiogram to assess rt sided pressures, recommended pt to quit smoking. Infarction of lung due to iatrogenic pulmonary ntuurxuz33/19/2014 Encounters DateTypeDepartmentCare JjlmEzsabmcetav69/12/2025 11:20 AM ESTAncillary Procedure [facility] [place] [facility] [address] [place] [address] Awareness of xifjarfaka54/11/2025Orders Only [facility] [address] [place] [address] Mika Martinez MD 01/17/2025 8:30 AM EDT - 01/17/2025 8:50 AM EDTSurgery [facility] [place] [facility] [address] [place] [address] Konrad Campoverde MD Loop insertion [23179 (CPT??)]01/17/2025 6:50 AM EDT - 01/17/2025 9:52 AM EDT Hospital Encounter [facility] [place] [facility] [address] [place] [place] [address] Konrad Campoverde MD Palpitations Discharge Disposition: Home or Self Care (01)01/17/20258942Sjhzhu79/20/2025Travel 12/29/2024Telephone [facility] [address] [place] [address] Stacy Singh MA 12/29/2024Orders Only [facility] [address] [place] [address] Stacy Singh MA Bilateral lower extremity edema (Primary Dx); Dyspnea on daqmxsie60/23/2025 1:00 PM EDTOffice Visit [facility] [address] [place] [address] Konrad Campoverde MD Palpitations (Primary Dx)12/14/2024Orders Only [facility] [address] [place] [address] Emerita Ramos MA Palpitations (Primary Dx)12/13/2024Orders Only [facility] [address] [place] [address] Emerita Ramos MA Abnormal PFT (Primary Dx)12/02/2024Telephone [facility] [address] [place] [address] Stacy Singh MA 12/01/2024Orders Only [facility] [address] [place] [address] Provider, MD Massimo from Last 3 Months Immunizations ImmunizationAdministration DatesNext DueUnspecified Sars-Cov-2 Vaccination 05/17/2020,04/26/2020 Family History Medical HistoryRelationNameCommentsAlcohol abuseBrotherMigrainesDaughter 1Anemia FatherJames McNeishAtrial fibrillationFatherJames McNeishDiabetes type IIFather Rubio McNeishHypertensionFatherJames McNeishObesityFatherJames McNeishBreast cancerMotherBeverly McNeishCancerMotherBeverly McNeishDepressionMotherBeverly McNeishAutoimmune diseaseNephewPOTSNephewPOTSNieceLupusSisterAneurysmNeg Hx Sudden deathNeg HxRelationNameStatusCommentsBrotherDaughter 1AliveDaughter 2 AliveFatherJames McNeishDeceasedMotherBeverly McNeishDeceasedNephewAliveNiece AliveSister Social History Tobacco UseTypesPacks/DayYears UsedDateSmoking Tobacco: WlvzxmXjnflbboin442 Smokeless Tobacco: Never Tobacco Cessation:Counseling Given: Not Answered Alcohol UseStandard Drinks/WeekCommentsYes0 (1 standard drink = 0.6 oz pure alcohol)maybe every 2 or 3 months I have [facility] UtilitiesAnswerDate RecordedIn the past 12 months has the FinalCAD, gas, oil, or water [employer] threatened to shut off services in your home?05/11/2024Humiliation, Afraid, Rape, and Kick questionnaireAnswerDate RecordedWithin the last year, have you been afraid of your partner or ex-partner?No05/11/2024Emotionally AbusedNot on file05/11/2024Physically AbusedNot on file05/11/2024Sexually AbusedNot on file 05/11/2024Overall Financial Resource Strain (CARDIA)AnswerDate RecordedHow hard is it for you to pay for the very basics like food, housing, medical care, and heating?Somewhat hard05/11/2024PHQ-2AnswerDate RecordedPatient Health Questionnaire-2 Fshca852UT Safety & EnvironmentAnswerDate RecordedWithin the last year, [...] were you homeless or living in a mcc (including now)?No05/11/2024Hunger Vital SignAnswerDate RecordedWithin the past 12 months, you worried that your food would run out before you got the money to buymore.Never true05/11/2024Ran Out of Food in the Last YearNot on file05/11/2024CommentsNoSex and Gender InformationValue Date RecordedSex Assigned at VcphkUjecif23/19/2025 3:28 PM EDTLegal SexFemale 09/19/2021 11:12 PM EDTGender NraghkloAzlubk21/19/2025 3:28 PM EDTSexual OrientationHeterosexual or Obrdlcen17/19/2025 3:28 PM EDT Last Filed Vital Signs Vital SignReadingTime TakenCommentsBlood Qejmoevb562/6001/17/2025 9:35 AM EDT Mlyvr947501/17/2025 9:35 AM QHEOnxwcjdiequ14.3 ??C (97.4 ??F)05/14/2024 3:26 PM ESTRespiratory Ecxe6077 9:35 AM EDTOxygen Xexbgjqaof820%01/17/2025 9:35 AM EDTInhaled Oxygen Concentration--Zwkxsn490 kg (241 lb)01/17/2025 7:08 AM EDT Yfqoji514.9 cm (5' 1 )01/17/2025 7:08 AM EDTBody Mass Index45.5401/17/2025 7:08 AM EDT Plan of Treatment Health MaintenanceDue DateLast DoneCommentsCT Pxdkunygvsgn65/15/1962Colonoscopy 2Colorectal Cancer Klwzznclt10/15/1962FIT-DNA1961FIT1961 FOBT1960 8376Ziswetwlwoztn50/15/1962Diabetes: Retinopathy Jusatehgs78/15/1972 Depression Vqaldhvrg00/15/1974Diabetes: Urine Protein Wwtkdzgae52/15/1981 Pneumococcal Vaccine: Pediatrics (0 to 5 Years) and At-Risk Patients (6 to 64 Years) (1 of 2 - PCV)1980Pap Smear1982Adult Sfvlnhm4311/06/1983 Cervical Cancer Ayziavaph93/15/1992HPV/Fqpweu7811/06/19912703Ramleulgf97/15/2002Zoster Vaccines (1 of 2)11/06/2011Diabetes: Hemoglobin A1C/14//4COVID-19 Vaccine (3 - 2024- season)502/, 05/17/2020, 04/26/2020, [...] Expiration DateModel / Serial / LotClosure,Flx,Watchman,Michelle,35mm - [id number] Implanted:Qty: 1 on 12/15/2023 by [facility]y [facility]arkar [facility]DeviceN/A: [employer] Software04/24/[id number] / / [id number]:Left atrial appendage clippingStent,Synergy Mr 2.50 X 24 - [id number] - [id number] Implanted:Qty: 1 on 07/21/2024 by Benito Bull MD at [facility] HospitalDrug Eluting StentRight: HeartAdmaticann [facility] [employer] [id number] / [id number] / [id number],Cardiac,Lux,Dxii+[facility] - [id number] - [id number] Implanted:Qty: 1 on 01/17/2025 by Konrad Campoverde MD at [facility] HospitalImplantable Loop RecorderN/A: [employer]05/07/2026M312 / [id number] / V Plate 4 Holes Implanted:Qty: 1 on 12/15/2023 by Woody Sarkar MD at [facility] HospitalN/A: [id number] / / 16mm Screw Gold Implanted:Qty: 4 on 12/15/2023 by Woody Sarkar MD at [facility] HospitalN/A: [id number] / / Procedures Procedure NamePriorityDate/TimeAssociated DiagnosisCommentsCARDIAC DEVICE CHECK CHECK - UIPMJZErpusap44/02/2025 12:20 PM EST Awareness of heartbeats CARDIAC DEVICE CHECK - REMOTE - LOOP RECORDER (ILR)Pxrycth6202/01/2025 12:00 AM ESTLOOP ZIFJIEYHNEsxkmvi17/27/2025 9:33 AM EDT Palpitations Procedure Note - Konrad Campoverde MD - 01/17/2025 9:33 AM EDT This note is in progress. LOOP IMPLANT PROCEDURE NOTE DATE OF PROCEDURE: PERFORMING PHYSICIAN: Dr. Silvester Eduardo/ Dr. Konrad Campoverde INDICATIONS FOR PROCEDURE: [...] the sternum on the left using the SoloLearn tool. The loop recorder was then injected [...] Konrad Campoverde MD Cardiac Electrophysiology. PULMONARY FUNCTION ZXZHHZPLbcosjp50/05/2025 2:15 PM EDTHEMOGLOBIN U2NCjw-Ss 12/06/2023 6:18 AM EDT from Last 3 Months or Most Recently Relevant to Health Maintenance Results * CARDIAC DEVICE CHECK - REMOTE - LOOP RECORDER (ILR) (02/02/2025 12:20 PM EST) Specimen (Source)Anatomical Location / LateralityCollection Method / Volume Collection TimeReceived Time Narrative Authorizing ProviderResult TypeResult StatusKonrad Gilles [facility] IMPLANTABLE CARDIAC DEVICE PROCEDURESFinal ResultPerforming OrganizationAddressCity/State/ZIP Code Phone Number CPACS * Cardiac device check - Remote loop recorder (ILR) (02/01/2025 12:00 AM EST) Anatomical RegionLateralityModalityOtherSpecimen (Source)Anatomical Location / LateralityCollection Method / VolumeCollection TimeReceived Time02/01/2025 Narrative Authorizing ProviderResult TypeResult StatusMika Kulwinder Martinez [facility] IMPLANTABLE CARDIAC DEVICE PROCEDURESFinal Result * Pulmonary function testing (11/26/2024 2:15 PM EDT)Anatomical RegionLaterality ModalityOther Narrative Authorizing ProviderResult TypeResult StatusHistorical Provider MDPFT ORDERABLES Final Result * Hemoglobin A1c (12/06/2023 6:18 AM EDT)ComponentValueRef RangeTest Method Analysis TimePerformed AtPathologist SignatureHemoglobin A1C5.84.0 - 6.0 % 12/07/2023 10:38 AM [facility])Estimated Average Gxvhjcn738 mg/dL12/07/2023 10:38 AM [facility] ([facility])Specimen (Source) Anatomical Location / LateralityCollection Method / VolumeCollection Time Received TimeBloodVenous blood specimen / UnknownArterial Line / Unknown 12/06/2023 6:18 AM EDT12/06/2023 7:06 AM EDT Narrative Authorizing ProviderResult TypeResult StatusAnanda Power CNPLAB BLOOD ORDERABLESFinal ResultPerforming OrganizationAddressCity/State/ZIP CodePhone Number [facility] [address] [place] [address] from Last 3 Months or Most Recently Relevant to Health Maintenance Insurance Advance Directives * Full Code (Latest Code Status on File) Date ActivatedDate InactivatedComments07/21/2024 2:29 PM07/21/2024 8:36 PM * Full Code Date ActivatedDate InactivatedComments05/11/2024 10:28 PM2/ 5:54 PM * Full Code Date ActivatedDate DdndybatzxnFgbsptkc91/4/2024 3:53 PM10 5:46 PM * Full Code Date ActivatedDate InactivatedComments12/05/2023 5:22 PM12/08/2023 3:54 PM * Full Code Date ActivatedDate InactivatedComments12/05/2023 3:56 PM12/05/2023 5:22 PM Care Teams Team MemberRelationshipSpecialtyStart DateEnd Date Merissa Mayfield MD [address] [facility] [address]A PCP - Halmsqm03/1/22
--- OUTSIDE RECORDS SUMMARY | 2025-02-11 14:33 | XMS_ITS | Clinical Summary ---
Author Organization [facility] Address [address] [place] [address] Care Team Providers Care Bait Painter Name Role Phone Merissa Mayfield MD Primary Care Provider [phone] Allergies Active AllergyReactionsCriticalityNoted DwiaRroszwtqRybebkl73/21/2010 Other Reaction(s): other, Other: See Comments, Unknown severe headaches Fsycobjeypsoez62/21/2010 Other Reaction(s): Intolerance, involuntary movements, other Sulfa AntibioticsItching,LzupUml6603/11/2014 Other Reaction(s): other Medications MedicationSigDispense QuantityRefillsLast FilledStart DateEnd DateStatus busPIRone (Buspar) 10 MG tablet Take 10 mg by mouth in the morning and 10 mg before bedtime.05/08/2023ctive HYDROcodone-acetaminophen ([place]) 5-325 MG tablet TAKE 1 TABLET BY [...] tablet Take 50 mg by mouth at bjmmslm3305/08/2023ctive venlafaxine XR (Effexor XR) 150 MG 24 [...] InformationValueDate RecordedSex Assigned at BirthNot on fileLegal PkwZlabqz49/01/2023 8:35 PM EDTGender Identity Not on fileSexual OrientationNot on file Last Filed Vital Signs Vital SignReadingTime TakenCommentsBlood Ovcuwzgw744/70007/21/2019 12:00 PM EDT Pulse--Ampyvxwuuxh31.5 ??C (97.7 ??F)06/04/2023 10:45 AM EDTRespiratory Rate-- Oxygen Saturation--Inhaled Oxygen Concentration--Uysorv119 kg (223 lb)06/04/2023 10:45 AM TFATpusyg027 cm (5' 3 )06/04/2023 10:45 AM EDTBody Mass Index39.5 06/04/2023 10:45 AM EDT Plan of Treatment Not on file Insurance Care Teams Team MemberRelationshipSpecialtyStart DateEnd Date Merissa Mayfield MD [facility]05/12/23
--- OUTSIDE RECORDS SUMMARY | 2025-02-11 14:33 | XMS_ITS | Patient Health Record ---
Author Organization [facility] Address [address] [place] [address] Care Team Providers Care Cotton Puller Name Role Phone Pam Wagoner Primary Care Provider [phone] Kelsey Granado Unavailable [phone] Allergies Allergen (clinical drug ingredient) Drug/Non Drug [...] MG Tablet1 tablet Orally twice a dayActivepyRIDostigmine [place] 60 MG Tablet1 tablet Orally two tabletsActiveDoxepin [...] hurting yourself in some wayNot at allTotal Rbxbl17CtpxwzwfqhsnkAicwphix DepressionDrug/Alcohol:Social InfoQuestionAnswerNotesAUDIT-C (Standard)Did you have a drink [...] in the past year?Monthly or less (1 point)Quupyx2ZzjaxqksccvqktFlclxbnfCTBK-76 (2020 Edition)1. 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.00)Activeconfirmed Vital Signs Heart Rate 78 /min 01/03/2025 Swyontvm27 %01/03/2025lood pressure phgsegvrh53 mm Hg01/03/20259763Juqnpa33.5 in 01/03/2025lood pressure tassmgau508 mm Hg01/03/20254843Qqbzjd950.0 lbs10MI 44.79 kg/m201/03/2025 Encounters Encounter Location Date Provider Diagnosis [facility] [address] [place] [address] 03/30/2024 Pam Wagoner [facility] [place] [address]/ Pam CoxMood disorder [address] [place] [address]/5Christy [facility] [place] [address]/5Christy CoxMood disorder [address] [place] [address]/5Christy CoxMood disorder [address] [place] [address]/5Christy CoxMood disorder [address] [place] [address]/5Christy CoxMood disorder [address] [place] [address]/5Christy Wagoner Mood disorder [address] [place] [address]/Leslie NeubergerMood disorder [address] [place] [place] [address]/4Christy CoxMood disorder F39 ; 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 and Anxiety F41.9[facility] [place] [place] [address]/5Christy CoxMood disorder F39 ; Anxiety F41.9 and 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[facility] [place] [facility] [place] [place] [address]/Leslie NeubergerMood disorder F39 ; Anxiety F41.9 and 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 [address]/Kelsey NeubergerMood disorder F39 ; Anxiety F41.9 and [...] consented to the start/continuation of the treatment. 09/07/2024Mood disorder (ICD-10 - F39)11/01/2024Mood disorder (ICD-10 - F39) 12/06/2024Mood disorder (ICD-10 - F39)02/26/2024Insomnia disorder with non-sleep disorder mental comorbidity (ICD-10 - G47.00)04/22/2024Mood disorder (ICD-10 - F39)04/23/2024Mood disorder (ICD-10 - F39)04/23/2024Mood disorder (ICD-10 - F39) 06/03/2024Mood disorder (ICD-10 - F39)06/23/2024nxiety (ICD-10 - F41.9) 12/06/2024Mood disorder (ICD-10 - F39) Lamictal: Patient educated on dosing schedule of medication. Made aware to make prescriber aware ofany unexplainable rash or flu-like symptoms. If outside of office hours patient should report to the ER. Made aware to contact the office with any questions or concerns. Provided crisis hotline number. Patient states has good support system. Will call office or report to the ER with suicidal ideations. 01/03/2025Mood disorder (ICD-10 - F39)5Anxiety (ICD-10 - F41.9) 12/06/2024nxiety (ICD-10 - F41.9) Recommended treatment is: _ FDA approved medication for this age group include Selective Serotonin Reuptake Inhibitors (SSRI) and Selective Norepinephrine Reuptake Inhibitors (SNRI). . Selective serotonin reuptake inhibitors? can cause nausea, headache, upset stomach, diarrhea, constipation, anxiety, irritability, and sexual dysfunction. . Please monitor for worsening of symptoms, especially suicidal ideations or morbid thoughts, and call office and or go to the emergency department immediately. Pt does not endorse exhibiting symptoms aligning with tamara. . The patient verbalizes understanding with all questions answered thoroughly and is in agreement with treatment plan. . Continue current treatment plan Patient/Guardian will call sooner if symptoms worsen. Patient understands to go to ER if needed if symptoms become severe. Crisis Intervention plan was discussed and agreed upon. Patient/Guardian will call 911 in case of emergency. Emergency contact information was provided to the patient/guardian. 4Anxiety (ICD-10 - F41.9)06/23/2024Insomnia disorder with non-sleep disorder mental comorbidity (ICD-10 - G47.00)01/03/2025Insomnia disorder with non-sleep disorder mental comorbidity (ICD-10 - G47.00)12/06/2024Insomnia disorder with non-sleep disorder mental comorbidity (ICD-10 - G47.00) Plan Of Treatment Next Appt Details Provider Name:Kelsey samuels, 03/11/2025 04:00:00 PM, [address] [place] [address], [phone], Insurance Providers Payer Name Payer Address Payer Phone Subscriber Number Group Number Insured Name Patient Relationship to Insured Coverage Start Date Coverage End Date ANTHEM Primary [address] [place] [address] [id number] KIMBERLY, NICOLAS Self - patient is the insured 4 4 BH [employer] [place] Medicaid [address] [place] [address] [id number] KIMBERLY, NOLASelf - patient is the vdisiui38/01/2025B [employer] [facility] [address] [place] [id number], NOLASelf - patient is the aqghzqf47 2024 Medical (General) History Medical History History ICD Code diabetes mallitus rheumatoid arthritisdepressionSVTPOTSSurgical History Surgery Date(Month/Year) hysterectomy, total with bilateral salpi grant-oopherectomy (BSO) 1994 back surgery 2009 hand surgery 03/14 gallbladder 1979 Hospitalization History Reason Date(Month/Year) see surgical
--- OUTSIDE RECORDS SUMMARY | 2025-02-11 14:33 | XMS_ITS | Clinical Summary ---
Author Organization [facility] Address [address] [place] [address] Phone Care Team Providers Care Manager Clinical Name Role Phone Unavailable Primary Care Provider Unavailabl e Social History Tobacco UseTypesPacks/DayYears UsedDateSmoking Tobacco: Never Assessed CommentsUnknownSex and Gender InformationValueDate RecordedSex Assigned at Not on fileLegal VxkFqbvzo14/26/2022 10:31 AM ESTGender IdentityNot on file Sexual OrientationNot on file Plan of Treatment Health MaintenanceDue DateLast DoneCommentsCT Qseuxujiyodt56/15/1962Colonoscopy 2Colorectal Cancer Zhowqjsvy95/15/1962FIT-DNA (Cologuard)1961FIT 1961HIV Hvdfqrewj44/15/1962Lipid Panel1961 1950Wwfzcpcaokicd45/15/1962 Yearly Adult Fzvcgcoq19/15/1962MMR Vaccines (1 of 1 - Standard series)1962 Hepatitis C Sqzrqoijj87/15/1980Cervical Cancer Lxvqbdpsy75/15/1983HPV/Cotest 1982Pap Smear1982DTaP/Tdap/Td Vaccines (1 - Tdap)11/06/1983Mammogram 2001Pneumococcal [...]
--- OUTSIDE RECORDS SUMMARY | 2025-02-11 14:33 | XMS_ITS | Encounter Summary ---
Author Organization [facility] Address [address] [place] [address] Care Team Providers Care Recovery Coordinator Name Role Phone Merissa Mayfield MD Primary Care Provider [phone] Encounter Details DateTypeDepartmentCare Team (Latest Contact Info)Hdjkaypiddb39/11/2025Orders Only [facility] [address] [place] [address] Mika Martinez MD [address] [place] [address] Social History Tobacco UseTypesPacks/DayYears UsedDateSmoking Tobacco: YynzcxHvmvhxqyue256 Smokeless Tobacco: NeverAlcohol UseStandard Drinks/WeekCommentsYes0 (1 standard drink = 0.6 oz pure alcohol)maybe every 2 or 3 months I have one while outPAR[facility] UtilitiesAnswerDate RecordedIn the past 12 months has the [employer], gas, oil, or water WHObyYOU threatened to shut off services in your [...] care, and heating?Somewhat hard05/11/2024PHQ-2AnswerDate RecordedPatient Health Questionnaire-2 Kzfmh639UT Safety & Environment AnswerDate RecordedWithin the last [...] were you homeless or living in a retirement (including now)?No05/11/2024 Hunger Vital SignAnswerDate RecordedWithin the past 12 months, you worried that your food would run out before you got the money to buymore.Never true05/11/2024 Ran Out of Food in the Last YearNot on file05/11/2024CommentsNoSex and Gender InformationValueDate RecordedSex Assigned at FducvVxxwjx68/19/2025 3:28 PM EDTLegal NcqBysqnc05/29/2022 11:12 PM EDTGender PuqlvfysJpbgkc18/19/2025 3:28 PM EDTSexual OrientationHeterosexual or Lajzxdjf76/19/2025 3:28 PM EDTdocumented as of this encounter Plan of Treatment Not on file documented as of this encounter Procedures Procedure NamePriorityDate/TimeAssociated DiagnosisCommentsCARDIAC DEVICE CHECK - REMOTE - LOOP RECORDER (ILR)Ncblllo5702/01/2025 12:00 AM ESTdocumented in this encounter Results * Cardiac device check - Remote loop recorder (ILR) (02/01/2025 12:00 AM EST) Anatomical RegionLateralityModalityOtherSpecimen (Source)Anatomical Location / LateralityCollection Method / VolumeCollection TimeReceived Time02/01/2025 Narrative Authorizing ProviderResult TypeResult StatusSaracheal Martinez [facility] [place] CARDIAC DEVICE PROCEDURESFinal Result documented in this encounter Visit Diagnoses Not on filedocumented in this encounter Care Teams Team MemberRelationshipSpecialtyStart DateEnd Date Merissa Mayfield MD [address] [facility] [address] PCP - Cqrhzed60/1/22documented as of this encounter
--- OUTSIDE RECORDS SUMMARY | 2025-02-11 14:34 | XMS_ITS | Clinical Summary ---
Author Organization [facility] Address [address] [place] [address] Care Team Providers Care Director Title Name Role Phone Merissa Mayfield MD Primary Care Provider [phone] Allergies Active AllergyReactionsCriticalityNoted DateCommentsCodeineOther: See Comments 07/12/2009 severe headaches Metoclopramide RweOehwpainamk31/21/2010Sulfa (Sulfonamide Antibiotics)Itching 08/19/2018 Medications MedicationSigDispense QuantityRefillsLast FilledStart [...] InformationValueDate RecordedSex Assigned at BirthNot on fileLegal WcaGfbkam63/02/2012 8:28 AM ESTGender Identity Not on fileSexual OrientationNot on file Last Filed Vital Signs Vital SignReadingTime TakenCommentsBlood Fzezwnro973/80008/20/2018 11:03 AM EDT Brdtt228608/20/2018 11:03 AM AKXRfictcrgyvn61 ??C (98.6 ??F)08/20/2018 11:03 AM EDTRespiratory Knes525508/20/2018 11:03 AM EDTOxygen Rcfvqvjwsj87%08/20/2018 11:03 AM EDTInhaled Oxygen Concentration--[place]ul[place]638.5 kg (254 lb 9.6 oz)08/20/2018 11:03 AM PXYGrytzr307 cm (5' 2.99 )08/20/2018 11:03 AM EDTBody Mass Index45.11 08/20/2018 11:03 AM EDT Plan of Treatment Health MaintenanceDue DateLast DoneCommentsAnxiety Zajgvjxjf96/15/1980Depression Pmbzymifa34/15/1980HIV Cpazttcyt12/15/1980DTaP,Tdap,Td Vaccine (1 - Tdap) 1980Cervical Cancer Gnenzinjj70/15/1983Mammogram Irrlmrrfh15/15/2002CT Lsveythvucmv25/15/2007Cologuard (FIT-DNA)11/05/20064642Vckqzmohbgw86/15/2007 Colorectal Cancer Jvfykkgpp78/15/2007Fecal Occult Blood2006Lipid Screening 11/05/20066869Azaxzlcusizdp70/15/2007Pneumococcal Vaccine: 50+ (1 of 1 - PCV) 11/06/2011Shingrix Vaccine (1 of 2)11/06/2011Diabetes Uunnwpehh79/21/2013 07/12/2009Covid-19 Vaccine (1 - season)2024Influenza Vaccine (#1) 2024RSV Vaccine (1 - 1-dose 75+ series)2036Hepatitis C Screening Biqktfgkh64/21/2010 Procedures Procedure NamePriorityDate/TimeAssociated DiagnosisCommentsHEP REMOTE PANEL BL Xeyirlw2207/12/2009 11:16 AM EDT Right Wrist Pain Fibromyalgia Syndrome Hist Of Fatigue COMPREHENSIVE METABOLIC CMHLNIressbp43/21/2010 11:16 AM EDT Right Wrist Pain Fibromyalgia Syndrome Hist Of Depression Fatigue Koilonychia from Last 3 Months or Most Recently Relevant to Health Maintenance Results * (ABNORMAL) HEP REMOTE PANEL BL (07/12/2009 11:16 AM EDT)ComponentValueRef RangeTest MethodAnalysis TimePerformed AtPathologist SignatureHep B Core Ab, TotalNegativeNEGATCOHIO STATE EAST H[facility]PITAL MAIN LABORATORYHep C Antibody IANegative NEGATCOHIO STATE EAST [facility]OSPITAL MAIN LABORATORYHBsAgNegativeNEGATCWRIGHT-PATTERSON MEDICAL CENTERAND [facility] MAIN LABORATORYHep B Surface Ab, QualPositive(A)NEGATCOHIO STATE [facility]AST [facility]OSPITAL MAIN LABORATORYComment: These results are consistent with previous exposure and/or immunity to the hepatitis B virus antigen. Specimen (Source)Anatomical Location / LateralityCollection Method / Volume Collection TimeReceived TimeBlood specimen (specimen)BLOOD SPECIMEN / Unknown 07/12/2009 11:16 AM EDT Narrative Authorizing ProviderResult TypeResult StatusFekenny Nayak MDLABORATORYFinal ResultPerforming OrganizationAddressCity/State/ZIP CodePhone Number [facility] [address] [place] [address] * (ABNORMAL) COMP METABOLIC PANEL (07/12/2009 11:16 AM EDT)ComponentValueRef RangeTest MethodAnalysis TimePerformed AtPathologist SignatureProtein, Total 7.56.0 - 8.4 g/dLHARRISON COMMUNITY HOSPITAL LABORATORYAlbumin4.43.5 - 5.0 g/dL [facility] LABORATORYCalcium9.58.5 - 10.5 mg/dLHARRISON COMMUNITY HOSPITAL LABORATORYBilirubin, Total0.40.0 - 1.5 mg/dLHARRISON COMMUNITY HOSPITAL LABORATORYAlkaline Mqvonacinfu8901 - 150 U/LCWRIGHT-PATTERSON MEDICAL CENTERAND [facility] LABORATORY YOM878 - 40 U/LCOHIOHEALTH VAN WERT [facility]ITAL NLWXGQKYMYZwnwwqa3018 - 100 mg/dL [facility] DGSQPJVIUNDZQ525 - 25 mg/dLHARRISON COMMUNITY HOSPITAL LABORATORYCreatinine0.68(L)0.70 - 1.40 mg/dLHARRISON COMMUNITY [facility]OS[facility]ORY Njplqc487511 - 148 mmol/LCOHIO STATE EAST [facility]OSP[facility] MAIN LABORATORYPotassium4.13.5 - 5.0 mmol/LCWRIGHT-PATTERSON [facility]ENTERAND [facility] MAIN AJIGOJFHPQHkywmpqg34882 - 110 mmol/LCOHIO STATE EAST [facility] MAIN YIZFLOKGBQPD51814 - 32 mmol/LCOHIO STATE EAST HOSPITAL MAIN LABORATORYAnion Gap90 - 15 mmol/LCOHIO STATE EAST [facility]OSPITAL MAIN QNYAUUBNQIEFC778 - 45 U/LCOHIO STATE EAST HOSPITAL MAIN LABORATORYeGFR->60[facility] eGFR-All Other Races>60.[facility] LABORATORYComment: eGFR (Estimated GFR) Units of [...] StatusFekenny Nayak MDLABORATORYFinal ResultPerforming OrganizationAddressCity/State/ZIP CodePhone Number [facility] [address] [place] [address] from Last 3 Months or Most Recently Relevant to Health Maintenance Care Teams Team MemberRelationshipSpecialtyStart DateEnd Date Merissa Mayfield MD [address] [place] [address] PCP - General06/20/09
--- OUTSIDE RECORDS SUMMARY | 2025-02-11 14:34 | XMS_ITS | CCD ---
Author Organization [facility] Care Team Providers Care Unemployment Insurance Hearing Officer Name Role Phone Anibal Chaudhary Primary Care [...] Primary Care Provider NIRANJAN Wagoner Attending Provider MD Anibal Chaudhary Primary Care Provider MD Anibal Chaudhary Attending Provider [phone] NIRANJAN Chen Attending Provider ROCKY Navarro Attending Provider [phone] NON STAFF Primary Care Provider UnavailAnibal Luna MD Primary Care Provider Darryl Mcleod Attending Provider Anibal Chaudhary MD Attending Provider [phone] Ramy Santacruz MD Attending Provider Anibal Chaudhary MD Primary Care Provider Al Johnson A Attending Provider Anibal Chaudhary Primary Care Unavailable Ramy Santacruz Attending Unavailable Ramy Santacruz Admitting Unavailable Anibal Chaudhary MD Primary Care Provider [phone] NONE, XXXX Referring Unavailable Coffey, Bashar X Attending Unavailable KONRAD ADAMS Admitting Unavailable KONRAD ADAMS Attending Unavailable MARCELLO WAGNER Admitting Unavailable MARCELLO WAGNER Attending Unavailable ZENCrow, KENDELL Referring Unavailable ZENZ, KENDELL Referring Unavailable CAMILO, YASH Referring Unavailable ELTAHAWY, EHAB Referring Unavailable KONRAD ADAMS Attending Unavailable KONRAD ADAMS Attending Unavailable ELTAHAWY, AL Attending Unavailable KONRAD ADAMS Attending Unavailable DARRYL PEDRAZA Attending Unavailable ALGHOTHDAYA BALDWIN Attending Unavailable DARRYL PEDRAZA Attending Unavailable KONRAD ADAMS Referring Unavailable MARCELLO WAGNER Referring Unavailable HORANI, EMILIE Referring Unavailable HORANI, EMILIE Admitting Unavailable DARY AMARAL Attending Unavailable Allergies Allergy ClassificationReported Allergen(s)Allergy TypeDate of OnsetReaction(s) FacilityUnclassified (1 source)[facility] ([facility] sources)CodeineDrug AllergyUnknowSoutheast [facility] Other (20 sources)Metoclopramide; Translations: [METOCLOPRAMIDE]Drug [id number] Unknown, [facility] (13 sources)Sulfamethoxazole / TrimethoprimDrug AllergyUnkBradley Hospital [facility] Other (13 sources)Sulfonamides (Antibiotic)Drug allergyGuthrie Corning [facility] Other (15 sources)Codeine; Translations: [CODEINE]Drug Azdhqqd55-49-4268DdbnmE[facility] (1 source)IothalamateDrug Dumbiso44-99-4199[facility]jaSouth[facility] (1 source)MorphineDrug Tfiqlug16-86-2619OwoSouthview Medical Center Repository (1 source)Sulfonamides (Antibiotic)Drug allergy (disorder)86-80-5358LjhSouthview Medical Center Repository (6 sources)CodeineDrug Ifgkwfn66-71-9506MqxuljgATWM Healthcare (17 sources)Sulfonamides (Antibiotic); Translations: [Sulfa (Sulfonamide Antibiotics)]Allergy to sgswfztyi17-96-2469Uhdml, [facility] (14 sources)Sulfamethoxazole; Translations: [sulfamethoxazole]Drug Allergy 77-36-8631LzsugVakbjvvxeSalem Regional Medical Center (14 sources)Trimethoprim; Translations: [trimethoprim]Drug Hbloyey46-47-1014 [facility] (1 source)CodeineDrug Iugwpwv62-63-7102SuifiytsdGrand [facility] Joint [facility] (1 source)MetoclopramideDrug Ankwnhh12-24-8783BikrltkerGrand Lake Joint [facility] (1 source)Sulfonamides (Antibiotic)Drug Ewmaovy72-43-6957OiekhzsMiddletown Emergency Department (1 source)Metoclopramide; Translations: [METOCLOPRAMIDE HCL]Drug Allergy 24-47-0471BtvjgdqsoxOhioHealth [facility] Repository Medications Current Medications MedicationDrug Class(es)DatesSig (Normalized)Sig (Original)acetaminophen 325 mg / HYDROcodone bitartrate 5 mg oral tablet (20 sources)Opioid AgonistStart: 05-08-2023 End: 27-48-5317mclp 1 tablet by mouth every six hours as needed for pain HYDROcodone-acetaminophen ([place]) 5-325 MG tablet TAKE 1 TABLET BY MOUTH EVERY 6 HOURS NEEDED FOR PAIN FOR 7 DAYS 05/08/2023 ActiveStart: 93-57-4613mkai 1 tablet by mouth every six hoursHYDROcodone-Acetaminophen 5-325 MG 1 tablet as needed Orally every 6 hrs for 7 days Jan, ActiveStart: 41-39-5203ywzw 1 tablet by mouth every six hoursHYDROcodone-Acetaminophen 5-325 MG 1 tablet as needed Orally every 6 hrs for 30 days pt will pay out of pocket for entire amount Aug, ActiveStart: 41-21-6341uapf 1 tablet by mouth every six hoursHYDROcodone-Acetaminophen 5-325 MG 1 tablet as needed Orally every 6 hrs for 30 days Apr, Rpgnsq36 hr amphetamine aspartate 2.5 mg / amphetamine sulfate 2.5 mg / dextroamphetamine saccharate 2.5 mg / dextroamphetamine sulfate 2.5 mg extended release oral capsule (2 sources)Central Nervous System StimulantStart: 01-35-9475lbtl 1 capsule by mouth every twenty-four hoursAdderall XR 10 MG 1 capsule in the morning Orally Once a day for 30 days Dec, ActivebusPIRone hydrochloride 10 mg oral tablet (20 sources)Start: 05-08-2023 End: 20-52-2850mzxy 1 tablet by mouth in the morningbusPIRone (Buspar) 10 MG tablet Take 10 mg by mouth in the morning and 10 mg before bedtime. 05/08/2023 Activeclopidogrel 75 mg oral tablet (3 sources)P2Y12 Platelet InhibitorStart: 68-61-0907iffe 1 tablet by mouth once dailydapagliflozin 10 mg oral tablet (4 sources)Sodium-Glucose Cotransporter 2 InhibitorStart: 11-34-4486wuip 1 tablet by mouth once dailyfamotidine 20 mg oral tablet (1 source)Histamine-2 Receptor Antagonistfamotidine (Pepcid) 20 MG tablet Take by mouth Activefurosemide 40 mg oral tablet (7 sources)Loop DiureticStart: 03-62-0619dplv 1 tablet by mouth twice daily Start: 01-22-2024 End: 03-18-0039wrkv 1 tablet by mouth once dailyFurosemide 40 mg tablet Discontinued 40 MG PO Daily January 22, 2024 12:00am December 22, 2024 3:31pm lamoTRIgine 200 mg oral tablet (20 sources)Mood Stabilizer, Anti-epileptic AgentStart: 04-38-9492rfby 1 tablet by mouth once dailyStart: 31-27-9658yggh 150 mg by mouth once dailyLamotrigine Active 150 MG PO Daily May 20, 2018 3:39pmStart: 05-20-2018 End: 43-86-8258Bqvkascghaf 150 mg tablet Discontinued 200 MG PO Daily May 20, 2018 1:00am July 10, 2023 1:44pmStart: 05-20-2018 End: 86-14-6012tegh 200 mg by mouth once dailyLamotrigine Discontinued 200 MG PO Daily May 20, 2018 1:00am July 10, 2023 1:44pmtake 1 tablet by mouth every twenty-four hourslamoTRIgine 200 MG 1 tablet Orally Once a day for 90 days Activelevothyroxine sodium 0.075 mg oral tablet (20 sources)l-ThyroxineStart: 61-58-7406yzbn 1 tablet by mouth once dailyStart: 08-20-2023 End: 55-82-3747pbik 1 tablet by mouth once dailyLevothyroxine 50 mcg tablet Discontinued 50 MCG PO Daily October 30, 2023 4:21pm March 5:40pm24 hr metoprolol succinate 25 mg extended release oral tablet (20 sources)beta-Adrenergic BlockerStart: 97-62-4428stqd 1 tablet by mouth once dailyStart: 01-22-2024 End: 56-85-2676Vfooqshndv Tartrate 25 mg tablet Discontinued 12.5 MG PO Daily January 22, 2024 12:00am May 28, 2024 12:40pmStart: 35-84-0373ityr 12.5 mg by mouth once dailyMetoprolol Tartrate Active 12.5 MG PO Daily January 22, 2024 12:00amStart: 93-98-0506ylfp 1 tablet by mouth once dailymetoprolol succinate XL (Toprol-XL) 50 MG 24 hr tablet Take 1 tablet by mouth Daily 02/07/2023 ActiveStart: 64-35-2407cknp 100 mg by mouth once dailyMetoprolol Succinate Active 100 MG PO Daily May 20, 2018 3:39pmStart: 05-20-2018 End: 16-47-1405qsdd 2 tablets by mouth once dailyMetoprolol Succinate 100 mg tablet extended release 24 hr Discontinued 50 MG PO Daily May 20, 2018 1:00am January 22, 2024 10:11amStart: 05-20-2018 End: 41-28-8600bame 50 mg by mouth once dailyMetoprolol Succinate Discontinued 50 MG PO Daily May 20, 2018 1:00am January 22, 2024 10:11amMetoprolol Tartrate Not-Takingmidodrine hydrochloride 2.5 mg oral tablet (3 sources)alpha-Adrenergic Agonisttake 1 tablet by mouth every eight hours Midodrine HCl 2.5 MG 1 tablet three times a day Activepyridostigmine bromide 60 mg oral tablet (20 sources)Start: 99-23-6642solw 2 tablets by mouth four times dailyStart: 12-24-2022 End: 42-42-4746Qynfjdxrguxcxt Edcouch 180 mg Tablet Extended Release Discontinued 120 MG PO Daily December 24, 2022 12:00am December 24, 2022 8:13am Start: 12-24-2022 End: 00-87-5882wbai 2 tablets by mouth twice dailyPyridostigmine Edcouch 60 mg Tablet Discontinued 120 MG PO Twice daily 0 0 December 24, 2022 12:00am May 08, 2023 4:09pmStart: 67-37-5960izcg 120 mg by mouth four times daily Pyridostigmine Edcouch Active 120 MG PO Four times daily December 24, 2022 12:00amStart: 12-24-2022 End: 71-21-9984gvwr 120 mg by mouth once dailyPyridostigmine Edcouch Discontinued 120 MG PO Daily December 24, 2022 12:00am December 24, 2022 8:13am Start: 12-24-2022 End: 30-73-7990qsdb 120 mg by mouth twice dailyPyridostigmine Edcouch Discontinued 120 MG PO Twice daily 0 December 24, 2022 12:00am May 08, 2023 4:09pmpyridostigmine (Mestinon) 60 MG tablet Take by mouth Active rivaroxaban 20 mg oral tablet (20 sources)Factor Xa InhibitorStart: 34-16-6971lyzn 1 tablet by mouth once dailyStart: 10-22-2023 End: 72-36-4697ahgk 1 tablet by mouth once dailyRivaroxaban (Xarelto) 20 mg tablet Discontinued 0 .ROUTE .COMPLEX 90 3 December 21, 2024 11:54amOct2024 3:31pm TAKE 1 TABLET BY MOUTH ONCE DAILYStart: 12-24-2022 End: 73-32-0276mieq 1 tablet by mouth once dailyRivaroxaban (Xarelto) [...] mg oral tablet (4 sources)HMG-CoA Reductase InhibitorStart: 00-39-6647jzch 1 tablet by mouth once dailysacubitril 24 mg / valsartan 26 mg oral tablet (6 sources)Angiotensin 2 Receptor BlockerStart: 16-73-2372pxhk 0.5 tablet by mouth once dailyStart: 05-28-2024 End: 35-36-0484ewhn 0.5 tablet by mouth twice dailySacubitril-Valsartan (Entresto) 24-26 mg tablet Discontinued 0.5 TAB PO Twice daily May 28, 2024 1:00am December 22, 2024 3:38pmspironolactone 25 mg oral tablet (10 sources)Aldosterone AntagonistStart: 78-48-0254Pssxa: 78-67-5812kxtq 12.5 mg by mouth once dailySpironolactone Active 12.5 MG PO Daily January 22, 2024 10:12amStart: 01-22-2024 End: 89-95-2031giqb 1 tablet by mouth once dailySpironolactone 25 [...] tablet (20 sources)Serotonin Reuptake InhibitorStart: 05-08-2023 End: 66-69-8175kfff 1 tablet by mouth at bedtimetraZODone (Desyrel) 50 MG tablet Take 50 mg by mouth at bedtime 05/08/2023 Khnfkh31 hr venlafaxine 150 mg extended release oral capsule (20 sources)Serotonin and Norepinephrine Reuptake InhibitorStart: 32-94-6389vwxh 1 capsule by mouth once dailyStart: 17-73-1585byoh 300 mg by mouth once daily Venlafaxine Active 300 MG PO Daily May 20, 2018 1:00amtake 2 capsules by mouth once dailyVenlafaxine HCl ER 150 MG TAKE 2 CAPSULES BY MOUTH DAILY for 90 ActiveEffexor XR Not-Taking Completed/Discontinued Medications MedicationDrug Class(es)DatesSig (Normalized)Sig (Original)acetaminophen 500 mg oral tablet (15 sources)Start: 12-24-2022 End: 31-28-8177ufbt 1 tablet by mouth twice daily as needed for pain Acetaminophen 500 mg Tablet Discontinued 500 MG PO Twice daily as needed for Pain December 242:00am May 28, 2024 12:[id number] 200 actuat albuterol 0.09 mg/actuat metered dose inhaler (5 sources)beta2-Adrenergic AgonistStart: 50-61-3659anpx 2 puff(s) by inhalation every six hours as neededVentolin HFA 108 (90 Base) MCG/ACT 2 puffs as needed Inhalation every 6h prn Jun, Not-Takingamiodarone hydrochloride 200 mg oral tablet (3 sources)AntiarrhythmicStart: 09-03-2024 End: 93-60-6607bwza 1 tablet by mouth once dailyAmiodarone 200 mg tablet Discontinued 200 MG PO Daily September 03, 2024 12:00am December 21, 2024 1 1:31amaspirin 81 mg delayed release oral tablet (5 sources)Platelet Aggregation Inhibitor, Nonsteroidal Anti-inflammatory Drug Start: 01-22-2024 End: 24-05-0133xyvv 1 tablet by mouth once dailyAspirin 81 mg tablet,delayed release (DR/EC) Discontinued 81 MG PO Daily January 22, 2024 12:00amSept2024 11:31amatorvastatin 40 mg oral tablet (5 sources)HMG-CoA Reductase InhibitorStart: 01-22-2024 End: 04-66-6329rwqe 1 tablet by mouth once dailyAtorvastatin 40 mg tablet Discontinued 40 MG PO Daily January 22, 2024 12:00am May 28, 2024 12:42pm benzonatate 100 mg oral capsule (5 sources)Non-narcotic AntitussiveStart: 46-47-4958ckxe 1 capsule by mouth every eight hoursTessalon Perles 100 MG 1 capsule as needed Orally Three times a day Jun, Not-Takingcariprazine 3 mg oral capsule (11 sources)Atypical AntipsychoticStart: 08-19-2023 End: 59-35-2180djun 1 capsule by mouth once dailyCariprazine (Vraylar) 3 mg capsule Discontinued 3 MG PO Daily August 19, 2023 12:00am May 28, 2024 12:42pmcholecalciferol 1.25 mg oral capsule (20 sources)Vitamin DStart: 10-06-2023 End: 14-57-8529wjmt 1 capsule by mouth every weekCholecalciferol (Vitamin D3) 1,250 mcg (50,000 unit) capsule Discontinued 0 .ROUTE .COMPLEX 4 3 October 06, 2023 10:00am May 28, 2024 12:42pm TAKE 1 CAPSULE BY MOUTH ONCE A WEEKStart: 05-25-9786ioyr 1 capsule by mouth every weekCholecalciferol (Vitamin D3) Active 0 .ROUTE .COMPLEX 4 October 06, 2023 10:00am TAKE 1 CAPSULE BY MOUTH ONCE A WEEK Start: 07-18-2023 End: 04-90-7304nkjj 1 capsule by mouth every weekCholecalciferol (Vitamin D3) 1,250 mcg (50,000 unit) capsule Discontinued 1250 MCG PO every week 1390 0 July 18, 2023 12:00am October 06, 2023 10:00am30 actuat fluticasone furoate 0.1 mg/actuat / vilanterol 0.025 mg/actuat dry powder inhaler (5 sources)Corticosteroid, beta2-Adrenergic AgonistStart: 01-22-2024 End: 71-49-6098Hxjvxdwffgl Furoate-Vilanterol (Breo Ellipta) 100-25 mcg/dose blister with device Discontinued INHALATION January 22, 2024 12:00am May 28, 2024 12:39pmhydroxychloroquine sulfate 200 mg oral tablet (20 sources)Antimalarial, Antirheumatic AgentStart: 05-20-2018 End: 97-74-1837wqqr 1 tablet by mouth twice dailyHydroxychloroquine 200 mg tablet Discontinued 200 MG PO Twice daily May 20, 2018 1:00am May 28, 2024 12:42pmketorolac tromethamine 5 mg/ml ophthalmic solution (15 sources)Nonsteroidal Anti-inflammatory Drug, Cyclooxygenase InhibitorStart: 12-24-2022 End: 53-34-5636migo 1 drop(s) into the eye(s) four times dailyKetorolac 0.5 % drops Discontinued 1 DROPS EYE-RIGHT Four times daily December 24, 2022 12:00am May 08, 2023 4:08pmStart: 12-24-2022 End: 01-27-4565majv 1 drop(s) into the eye(s) four times dailyKetorolac 0.5 % drops Discontinued 1 DROPS EYE-RIGHT Four times daily December 24, 2022 12:00am May 08, 2023 4:08pmStart: 12-24-2022 End: 02-75-0464jfcy 1 drop(s) into the eye(s) four times dailyKetorolac Discontinued 1 DROPS EYE-RIGHT Four times daily December 24, 2022 12:00am May 08, 2023 4:08pmlisinopril 5 mg oral tablet (20 sources)Angiotensin Converting Enzyme InhibitorStart: 05-20-2018 End: 40-78-8955xowj 1 tablet by mouth once dailyLisinopril 5 mg tablet Discontinued 5 MG PO Daily May 20, 2018 1:00am December 24, 2022 3:02am Lisinopril Not-Takingmagnesium oxide 400 mg oral tablet (5 sources)Start: 01-22-2024 End: 94-68-2199kzaj 1 tablet by mouth twice dailyMagnesium Oxide 400 mg magnesium tablet Discontinued 400 MG PO Twice daily January 22, 2024 12:00am December 21, 2024 11:30ammirtazapine 15 mg oral tablet (5 sources)Start: 01-22-2024 End: 71-88-1267rirm 1 tablet by mouth once dailyMirtazapine 15 mg tablet Discontinued 15 MG PO Daily January 22, 2024 12:00am May 28, 2024 12:40pm mupirocin 0.02 mg/mg topical ointment (20 sources)RNA Synthetase Inhibitor AntibacterialStart: 10-24-2023 End: 73-32-8690Nnloxzmpn 2 % ointment Discontinued 1 APPLIC TOPICAL Twice daily October 24, 2023 12:00am May 28, 2024 12:42pm FreeTextSi application Externally Twice a day; Note: Source Status: Taking; Refills: 1; Qty: 22 Gram; Provider: Chaparro Craven EStart: 58-96-8628Xkbhilaer Active 1 APPLIC TOPICAL Twice daily October 24, 2023 12:00am FreeTextSi application Externally Twice a day; Note: Source Status: Taking; Refills: 1; Qty: 22 Gram; Provider: Chaparro PalafoxStart: 41-19-6684Prvewxnrh 2 % 1 application Externally Twice a day for 5 day(s) Apr, ActiveOmeprazole (5 sources)Proton Pump InhibitorOmeprazole Not-Takingondansetron 4 mg oral tablet (4 sources)Serotonin-3 Receptor AntagonistStart: 05-28-2024 End: 81-34-2556bsxy 1 tablet by mouth every eight hours as needed for nausea and vomitingOndansetron Hcl 4 mg tablet Discontinued 4 MG PO Every 8 hours as needed for nausea and vomiting 300 May 28, 2024 1:00am December 21, 2024 11:30am QUEtiapine 25 mg oral tablet (11 sources)Atypical AntipsychoticStart: 08-19-2023 End: 90-26-7813lcjm 1 tablet by mouth once daily at bedtimeQuetiapine (Seroquel) 25 mg tablet Discontinued 25 MG PO Daily at bedtime August 19, 2023 12:00am Oct 2:29pmSITagliptin 100 mg oral tablet (20 sources)Dipeptidyl Peptidase 4 InhibitorStart: 09-09-2023 End: 05-60-1315bwsn 1 tablet by mouth once dailySitagliptin Phosphate (Januvia) 100 mg tablet Discontinued 0 .ROUTE .COMPLEX 90 0 December 03, 2023 9:46am May 28, 2024 12:41pm TAKE 1 TABLET BY MOUTH DAILYStart: 12-24-2022 End: 71-57-2658otvc 1 tablet by mouth once dailySitagliptin Phosphate (Januvia) 100 mg tablet Discontinued 100 MG PO Daily December 24, 2022 12:00am September 09, 2023 9:11amsodium chloride 1000 mg oral tablet (12 sources)Start: 10-24-2023 End: 75-38-1837xcdb 1 tablet by mouth once dailySodium Chloride [...] mg oral capsule (20 sources)BenzodiazepineStart: 05-08-2023 End: 03-24-8245svbc 1 capsule by mouth once daily at bedtimeTemazepam (Restoril) 15 mg capsule Discontinued 15 MG PO Daily at bedtime May 08, 2023 1:00am May 08, 2023 4:37pmStart: 63-21-8686ghzl 1 capsule by mouth every twenty- four hoursTemazepam 15 MG 1 capsule at bedtime as needed Orally Once a day for 30 days Aug, ActivetraMADol hydrochloride 50 mg oral tablet (20 sources)Opioid AgonistStart: 08-19-2023 End: 47-85-8329qejd 1 tablet by mouth twice daily as neededTramadol 50 mg tablet Discontinued 50 MG PO Twice daily as needed August 19, 2023 12:00am January 22, 2024 10:20amStart: 12-24-2022 End: 28-43-2533gzxw 1 tablet by mouth every eight hoursTramadol 50 mg tablet Discontinued 50 MG PO Q8H December 24, 2022 12:00am May 08, 2023 4:10pm Start: 25-84-8716fhxy 1 tablet by mouth three times daily as neededtraMADol HCl 50 MG 1 tablet as needed Orally tid prn for 30 days Aug, Activewarfarin sodium 10 mg oral tablet (20 sources)Vitamin K AntagonistStart: 05-20-2018 End: 40-35-1578vqlk 5 mg by mouth once dailyWarfarin 10 mg tablet Discontinued 5 MG PO Daily May 20, 2018 1:00am December 24, 2022 3:03amStart: 05-20-2018 End: 17-27-4908dgoq 5 mg by mouth once dailyWarfarin Discontinued 5 MG PO Daily May 20, 2018 1:00am December 24, 2022 3:03amWarfarin Sodium Not-Taking Problems Active Problems Problem ClassificationProblemDateDocumented DateEpisodic/ChronicAcute myocardial infarction (2 sources)Non-ST elevation (NSTEMI) myocardial infarction; Translations: [Non- ST elevation (NSTEMI) myocardial infarction]Onset: 92-99-1681Ozugdpn Administrative/social admission (1 source)Counseling procedure with explicit context; Translations: [Dietary counseling and surveillance]EpisodicAnxiety disorders (16 sources)Anxiety; Translations: [Other specified anxiety disorders]Chronic Cardiac dysrhythmias (2 sources)Paroxysmal atrial fibrillation; Translations: [Paroxysmal atrial fibrillation]Onset: 98-70-1992GxlzlylNpghtct dysrhythmias (4 sources)Tachycardia; Translations: [Tachycardia, unspecified]Onset: 14-10-1392BkkqrzjpAdwywtp kidney disease (3 sources)Chronic kidney disease stage 3; Translations: [Stage 3 chronic kidney disease]59-36-2958LokknooJzflvdz kidney disease (1 source)Chronic kidney disease; Translations: [Chronic kidney disease, stage 3 unspecified]Onset: 85-64-6070Ffijboe obstructive pulmonary disease and bronchiectasis (4 sources)Chronic obstructive lung disease; Translations: [Chronic obstructive pulmonary disease, unspecified]88-57-9398UeofualLjldqhf obstructive pulmonary disease and bronchiectasis (1 source)Chronic obstructive pulmonary disease and bronchiectasisCongestive heart failure; nonhypertensive (4 sources)Acute on chronic combined systolic (congestive) and diastolic (congestive) heart failure; Translations: [Heart failure, unspecified]Onset: 02-94-1026PtodszmDkvrxfya atherosclerosis and other heart disease (15 sources)Coronary arteriosclerosis; Translations: [Atherosclerotic heart disease of [place] coronary artery without angina pectoris]Onset: 05-11-2024 01-45-2366SvueikwAbmrntes mellitus with complications (20 sources)Hyperglycemia due to type 2 diabetes mellitus; Translations: [Type 2 diabetes mellitus with hyperglycemia]Onset: 905346-39-5137YxgfqbuMjclibum mellitus without complication (17 sources)Diabetes mellitus without complication; Translations: [Diabetes mellitus due to underlying condition without complications]ChronicDisorders of lipid metabolism (4 sources)Hyperlipidemia; Translations: [Hyperlipidemia, unspecified]Onset: 019534-08-2772OgllkgeEuukrpvco usually diagnosed in infancy, childhood, or adolescence (3 sources)Adult attention deficit hyperactivity disorder ; Translations: [Other specified behavioral and emotional disorders with onset usually occurring in childhood and adolescence]ChronicE Codes: Fall (17 sources)Fall; Translations: [Unspecified fall, initial encounter]12-24-2022 EpisodicEssential hypertension (16 sources)Hypertensive disorder; Translations: [Essential (primary) hypertension]68-57-6718YufslcaQnydq and electrolyte disorders (18 sources)Hyponatremia; Translations: [Hypo-osmolality and hyponatremia] 04-38-6354JmrnghgnUoohhbeyzzjba symptoms and ill-defined conditions (14 sources)Increased frequency of urination; Translations: [Frequency of micturition]54-03-5619UlcvqnvdGscutgzuzttv with complications and secondary hypertension (4 sources)Chronic kidney disease due to hypertension; Translations: [Hypertensive chronic kidney disease withstage 1 through stage 4 chronic kidney disease, or unspecified chronic kidney disease]Onset: ChronicImmunizations and screening for infectious disease (1 source)Raised antibody titer; Translations: [RAISED ANTIBODY TITER]Onset: 18-72-9249UrfllaiiJbpwumm and fatigue (2 sources)Fatigue; Translations: [Other fatigue]EpisodicMiscellaneous mental health disorders (9 sources)Primary insomnia; Translations: [Primary insomnia]ChronicMood disorders (20 sources)Depressive disorder; Translations: [Depressive disorder]Onset: 415664-74-0928KlgifwyXwoenzsisfbztc (15 sources)Osteoarthritis; Translations: [Unspecified osteoarthritis, unspecified site]Onset: 785106-30-7812UmkjbkwStuob acquired deformities (13 sources)Contracture of joint of hand; Translations: [Contracture, unspecified hand]ChronicOther aftercare (1 source)Other superintendent [employer] (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) drug therapy; Translations: [OTH INTERMEDIATE CURRENT DRUG THERAPY]Onset: 09-64-2842NqrcoqroZvwjl circulatory disease (1 source)Other specified symptoms and signs involving the circulatory and respiratory systemsEpisodicOther diseases of kidney and ureters (3 sources)Secondary hyperparathyroidism; Translations: [Secondary hyperparathyroidism of renal origin]66-99-6740BfqyfmfYmxwi diseases of kidney and ureters (1 source)Secondary hyperparathyroidism of renal origin; Translations: [Secondary hyperparathyroidism of renal origin]Onset: 68-89-9987BkqoxmzEjrbj gastrointestinal disorders (13 sources)Irritable bowel syndrome; Translations: [...] (5 sources)Polyarthritis, unspecified; Translations: [POLYARTHRITIS UNSPECIFIED] Onset: 04-76-2310UulvpjuBivyg non-traumatic joint disorders (13 sources)Arthralgia of the pelvic region and thigh; Translations: [Pain in right hip]EpisodicOther non-traumatic joint disorders (5 sources)Pain in right hip; Translations: [Pain in joint, pelvic region and thigh]EpisodicOther non-traumatic joint disorders (2 sources)Pain in right hip joint; Translations: [Pain in right hip]Episodic Other non-traumatic joint disorders (15 sources)Hip pain; Translations: [Pain in right hip]09-37-6704JhpvlgdgVmfsu nutritional; endocrine; and metabolic disorders (2 sources)Morbid obesity; Translations: [Morbid (severe) obesity due to excess calories]Onset: 81-18-8545VnflhwbUnojq nutritional; endocrine; and metabolic disorders (2 sources)Body mass index 40+ - severely obese; Translations: [Body mass index (BMI) 40.0-44.9, adult]ChronicOther nutritional; endocrine; and metabolic disorders (2 sources)Morbid (severe) obesity due to excess calories; Translations: [Morbid (severe) obesity due to excess calories]Onset: 17-25-9192XlnccgvOhyjv nutritional; endocrine; and metabolic disorders (12 sources)Excessive [...] [Personal history of other venous thrombosis and embolism]23-15-6657OvjceirtWetpqptmw heart disease (15 sources)Pulmonary embolism; Translations: [Other pulmonary embolism without acute cor pulmonale]Onset: 68-19-6885WgcdbptmInjjrdcd codes; unclassified (15 sources)Obstructive sleep apnea syndrome; Translations: [Obstructive sleep apnea (adult) (pediatric)]Onset: 87-97-1848ZepqfndHyzneymx codes; unclassified (1 source)Obstructive sleep apnea (adult) (pediatric)ChronicResidual codes; unclassified (2 sources)Family history of breast cancer; Translations: [Family history of malignant neoplasm of breast]EpisodicResidual codes; unclassified (11 sources)Edema of lower extremity; Translations: [Localized edema]08-19-2023 EpisodicResidual codes; unclassified (3 sources)Localized edema; Translations: [Edema]80-98-0516SgzyahthBihixyloey arthritis and related disease (20 sources)Rheumatoid arthritis; Translations: [Rheumatoid arthritis, unspecified]ChronicSpondylosis; intervertebral disc disorders; other back problems (20 sources)Low back pain; Translations: [Lumbar pain]Onset: 95-88-4763Nlufepxw Tuberculosis (1 source)Tuberculosis of spineEpisodicUnclassified (1 source)Supraventricular tachycardia, unspecified; Translations: [Supraventricular tachycardia, unspecified]Onset: 01-22-2022 Past or Other Problems Problem ClassificationProblemDateDocumented DateEpisodic/ChronicAcute bronchitis (2 sources)Acute bronchitis; Translations: [Acute bronchitis, unspecified]Onset: 37-74-1406PhyhrekeBujasxzc atherosclerosis and other heart disease (2 sources)Presence of aortocoronary bypass graft; Translations: [Presence of aortocoronary bypass graft]Onset: 46-44-8222RyfdeiaqRfoyrgxz mellitus without complication (2 sources)Hyperglycemia; Translations: [Hyperglycemia, unspecified]Onset: 82-78-5052RxftmydoIxrxi lower respiratory disease (2 sources)Other forms of dyspnea; Translations: [Other forms of dyspnea]Onset: 19-55-4734OmmnhwzkRzwqr non-traumatic joint disorders (2 sources)Joint pain; Translations: [Pain in unspecified joint]Onset: 08-00-1590CziqrvmnXmpxc screening for suspected conditions (not mental disorders or infectious disease) (20 sources)Raised cardiac enzyme or marker; Translations: [Other specified abnormal findings of blood chemistry]Onset: 756255-63-4060PmofwqzyYxhevpoo codes; unclassified (2 sources)Insomnia; Translations: [Insomnia, unspecified]Onset: 09-10-2018 EpisodicResidual codes; unclassified (2 sources)Tobacco use; Translations: [Tobacco use]Onset: 98-60-8801Crjujqfk Unclassified (2 sources)Lumbar pain M54.50Unclassified (4 sources)Depressive disorder F32.AUnclassified (1 source)Supraventricular tachycardia, unspecified; Translations: [Supraventricular tachycardia, unspecified]Onset: 08-31-2024 Results Test NameValueInterpretationReference RangeFacilityOrders Onlyon 02-01-2025 Orders [id number] Ruma Carlton 1960 F Date Provider Department Center 02/01/2025 Gladys-LUZ [facility] CARD [facility] HeartVAS Family History Problem Relation [...] Daughter Alive Nephew Alive Neg HxNormalUniversity of Bay[facility] – IrvingPulmonology Office/Clinic Noteon 55-63-0298Mafvlydpikg Office/Clinic NotePulmonology Office/Clinic Note Chief Complaint abnormal PFT History of Present Illness This is a 64-year-old female with past medical history significant for smoking 68-mfvt-bkuu quit a year ago coronary artery disease status post CABG and recent stent she still complains of dyspnea sometimes at rest and sometimes with exertion and occasional wheezing she has intermittent cough and clear mucus. Her lead business systems analyst performed PFTs which showed normal spirometry with significant responseto bronchodilators and mild obstruction. She has normal lung volumes and DLCO she is on amiodarone.She was referred to pulmonary. She is not on any inhalers at this time few months ago she was on Breo after hospital discharge and she felt it was not helping her. She has chronic lower extremity edema she is on diuretics 40 twice daily. She is scheduled to have a sleep study at [facility] Review of Systems PHQ Score Initial Depression Screen Score: 0 SCORE 12 point system review was done and negative except what mentioned in HPI Physical Exam Vitals & Measurements HR: 56(Peripheral) BP: 125/81 SpO2: 96% HT: 156 cm HT: 61 in General: no distress Skin: warm, dry Head: no trauma, normocephalic Neck: Trachea midline , no adenopathy, no tenderness Eye: normal conjunctiva, sclera clear ENMT: oral mucosa moist Cardiovascular: regular rate and rhythm, normal Respiratory: Lungs CTA ,respirations non labored Chest wall: no deformity. Gastrointestinal: soft , non distended , no tenderness, no guarding. Extremities: no deformity, no trauma Neurological: nonfocal Assessment/Plan 1. COPD, mild (J44.9: Chronic obstructive pulmonary disease, unspecified) Her PFTs shows mild obstructive lung disease if she has symptoms of chronic cough and mucus occasional wheezing and mild COPD contributing to her dyspnea although probably she has a good component ofcardiac etiology of her dyspnea. I will start her on Advair and albuterol as needed and monitor hersymptoms Ordered: albuterol, 180 mcg, 2 inh, Inhalation, q6hr Shortness of breath or wheezing for 30 day(s), 8.5 gm, Refill(s) 1, [facility]/pharmacy #[id number], 156, cm, 01/27/25 9:14:00 EST, Height/Length Dosing fluticasone-salmeterol, 1 puff(s), Inhalation, BID for 30 day(s), 60 EA, Refill(s) 11, [facility]/pharmacy#[id number], 156, cm, 01/27/25 9:14:00 EST, Height/Length Dosing 2. Nicotine dependence, cigarettes, in remission (F17.211: Nicotine dependence, cigarettes, in remission) Considering her smoking history she qualifies for screening CT chest Ordered: CT Chest, Low Dose Screening 3. Obstructive sleep apnea (G47.33: Obstructive sleep apnea (adult) (pediatric)) She is in the process of scheduling sleep study ordered by her lead business systems analyst and scheduled in [place] 4. Coronary artery disease (I25.10: Atherosclerotic heart disease of jackson coronary artery withoutangina pectoris) Follow-up No qualifying data available 6 wks Problem List/Past Medical History Ongoing No qualifying data Historical No qualifying data Procedure/Surgical History CABG x 3 - Coronary artery bypass grafts x 3, Catheterization of aorta, Gallbladder, Hysterectomy, Trigger finger, Trigger finger of right hand. Medications Advair Diskus 250 mcg-50 mcg inhalation powder, 1 puff(s), Inhalation, BID, 11 refills Albuterol (Eqv-ProAir HFA) 90 mcg/inh inhalation aerosol, 180 mcg= 2 inh, Inhalation, q6hr, PRN, 1 refills clopidogrel 75 mg Tab doxepin 6 mg oral tablet Entresto 24 mg-26 mg oral tablet Farxiga 10 mg oral tablet furosemide 40 mg Tab lamotrigine 200 mg Tab levothyroxine 75 mcg (0.075 mg) Tab, 75 mcg= 1 tab(s), Oral, Daily pyridostigmine rosuvastatin 20 mg Tab, 20 mg= 1 tab(s), Oral, Daily spironolactone 25 mg Tab Xarelto 20 mg oral tablet Allergies sulfa drugs (Rash) Social History Alcohol Never., 01/26/2025 Substance Abuse Never., 01/26/2025 Tobacco Former smoker, quit more than 30 days ago Tobacco Use:., 01/26/2025[facility] HospitalComment on above:Result Comment: Electronically Signed By: Allen SCHULTE, [place] X\.br\Date and Time Signed: 01/27/25 10:09 ESTHPon 81-51-1799NQ Attestation signed by Konrad Adams MD at [...] be an additional personal documentation from me. [place] Electrophysiology Consult Note Reason for visit: Palpitations [...] Year: No Utilities: Not At Risk (05/11/2024) [facility] Utilities Threatened with loss of utilities: No Health Literacy: Not on file Allergies: Allergies Allergies Allergen (more content not included)...[facility] NURSNOTEon 88-25-8140AWYPKQDCTS educated pt on d/c instructions. This included: [...] wheeled off of unit with all of belongings.[facility] HospitalUS renal BIon 44-31-5718NV renal [facility] [place] [address] [place], [place] [address] Ultrasound Report Signed Patient: Ruma Carlton MR#: [id number] 7 : 1960 Acct:[id number] Age/Sex: 64 / F ADM Date: 01/11/25 Loc: Room: Type: [facility] Attending Dr: Ramy Santacruz MD Ordering Provider: [...] Mckeon M.D. 01/11/2025 1:54 PM Dictation Location: [place] [address] Tech: Ghazalabette Durham Transcribed By: CHRISTIAN 01/11/25 1354 Dictated By: Prosper Mckeon DO 01/11/25 1353 Signed By: 01/11/25 1354[facility] Physician Intxh21xy 63-63-810061Yxck from [facility] Cardiac Rehab made us aware of patient's 5# weight gain over the weekend. Says she took an extra lasix tablet. Currently taking lasix 40mg bid and spironolactone 12.5mg daily. I ordered labs to see if renal function would allow for increase in lasix. Will update Dr. Johnson once lab results are received. Results are in new media strategist for your review. Thanks.[facility] HospitalGlomerular filtration rate (GFR) estimation in non- AmericanOrdered By: Al Johnson on 44-38-5787QBR/1.73 sq M.predicted among non-blacks MDRD (S/P/Bld) [Vol rate/Area]33 mL/min/{1.73_m2}Low>=60 mL/min/1.73m 2FSouthwest General Health CenterLaboratory - Chemistry and Chemistry - challengeOrdered By: Al Johnson on 94-95-6575Mahxhjk [Mass/Vol]9.2 mg/dL 8.5-10.1FSouthwest General Health CenterChloride [Moles/Vol]102 mmol/L98-107 [facility] Memorial HospitalCO2 [Moles/Vol]32.1 mmol/LHigh21.0-32.0 [facility] Memorial HospitalCreatinine [Mass/Vol]1.60 mg/dLHigh0.55-1.02 [facility] HospitalGFR/1.73 sq M.predicted MDRD (S/P/Bld) [Vol rate/Area]39 mL/min/{1.73_m2}Low>=60 mL/min/1.73m 2FSouthwest General Health CenterGlucose [Mass/Vol]150 mg/zCPmdb39-404PkuryoeusGrand Lake Joint [facility] District Memorial Hospital Natriuretic peptide B (Bld) [Mass/Vol]707.0 pg/mL<=900.0[facility] HospitalPotassium [Moles/Vol]3.8 mmol/L3.5-5.1FLicking Memorial Hospitalodium [Moles/Vol]143 mmol/K081-949HmvjlncwtGrand Lake Joint Township District Memorial HospitalUrea nitrogen [Mass/Vol]25.0 mg/dLHigh7.0-18.0[facility] HospitalUrea nitrogen/Creatinine [Mass ratio]15.6 mg/mgGrand [facility] Joint [facility] District Memorial Hospital Laboratory - Chemistry and Chemistry - challengeOrdered By: Anibal Chaudhary on 62-76-5297Gtiz T4 [Mass/Vol]1.24 ng/dL0.76-1.46[facility] TSH Qn9.512 m[IU]/LHigh0.358-3.740K[facility]tering Health Troyerum or plasma anion gap determinationOrdered By: Al Johnson on 99-95-7628Hbejk gap [Moles/Vol]12.7 mmol/LFSouthwest General Health CenterTelephoneon 12-29-2024 [id number] Ruma Carlton 1960 F Date Provider Department Center 12/29/2024 Adrián8-STACY [facility] Family History Problem Relation Age of [...] Daughter Alive Nephew Alive Neg HxNormalUniversity of [facility] Center – IrvingOffice Visiton 04-63-4580Jsvaro- up [id number] Ruma Carlton 1960 F Date Provider Department Center 12/14/2024 Yocasta-KONRAD ADAMS CARD [facility] Family History Problem Relation [...] Alive Nephew Alive Neg Hx Level of Service:96888 [place] OFFICE/OUTPATIENT ESTABLISHED LOW MDM 20 [facility] [place]36on 92-55-217467Yl informed sent to [id number] PFT result from 11/26/2024: Al Johnson MD to Pa (Selected Message) 12/01/24 4:23 PM Please let her know her pulmonary function tests are abnormal and I would recommend she see a dairy store manager. Thank [facility] HospitalTelephoneon 12-02-2024 [id number] Ruma Carlton 1960 F Date Provider Department [place] 12/02/2024 Kenyatta-STACY BRADY SREEDHAR [facility] Family History Problem Relation [...] Daughter Alive Daughter Alive Nephew Alive Neg HxNormalUniversparkview health bryan hospital of [facility] IrvingOrders Onlyon 38-03-6516Cneoio [id number] Ruma Carlton 1960 F Date Provider Department Center 12/01/2024 [id number], HISTORICAL CARD [place] [facility] Family History Problem Relation Age of [...] Daughter Alive Daughter Alive Nephew Alive Neg HxNormalUniPremier Health Miami Valley Hospital36on 63-18-033088Nwvapkypi lab results from 10/12/2024: MD Stacy Rodriguez MA She has CKD - she should be seeing a business assistant. Thanks. Spoke with patient and she agrees to nephrology referral, as she currently does not see one. Referral sent to [facility] Nephrology.NormalUnSt. John of God HospitalCholesterol in LDL Calc [Mass/Vol]Ordered By: Darryl Pedraza on 82-00-8537Impykdlulrv in LDL [Mass/Vol]60.0 mg/dLGrand Lake Joint Township District Memorial HospitalComment on above:<100 mg/dl CJDLZKA688-431 mg/dl NEAR OR ABOVE GTCIVQY657- 159 mg/dl BORDERLINE KNZI601-164 mg/dl HIGH>190 mg/dl VERY HIGHCholesterol in VLDL Calc [Mass/Vol]Ordered By: Darryl Pedraza on 11-19-2814Nhlziwpjuwy in VLDL [Mass/Vol]25.4 mg/dLGrand Lake Joint Township District Memorial HospitalGlobulin Calc (S) [Mass/Vol]Ordered By: Darryl Pedraza on 51-90-5150Qkzdavwn (S) [Mass/Vol]3.9 g/dLGrand Lake Joint Township District Memorial HospitalGlomerular filtration rate (GFR) estimation in non- AmericanOrdered By: Darryl Pedraza on 69-45-8857PWY/1.73 sq M.predicted among non-blacks MDRD (S/P/Bld) [Vol rate/Area]35 mL/min/{1.73_m2} Low>=60 mL/min/1.73m 2FSouthwest General Health CenterLaboratory - Chemistry and Chemistry - challengeOrdered By: Darryl Pedraza on 79-13-9666Gifmzyw [Mass/Vol]3.7 g/dL3.4-5.0[facility] HospitalALP [Catalytic activity/Vol]128 U/UGhoq70-633IiilgkgapGrand Lake Joint Township District Memorial HospitalALT [Catalytic activity/Vol]27 U/H01-08LjfmzyyveGrand Lake Joint Township District Memorial HospitalAST [Catalytic activity/Vol]27 U/N65-59RxkmlsrwdGrand Lake Joint Township District Memorial HospitalBilirubin [Mass/Vol]0.5 mg/dL0.2-1.0[facility] Memorial HospitalCalcium [Mass/Vol]9.2 mg/dL 8.5-10.1FSouthwest General Health CenterChloride [Moles/Vol]104 mmol/L98-107 [facility] Memorial HospitalCholesterol [Mass/Vol]148 mg/dL<=200[facility] HospitalCholesterol in HDL [Mass/Vol]63 mg/sTScvl60-04PjxvhfedmGrand Lake Joint Township District Memorial HospitalComment on above:> or =60 mg/dl - LOW CARDIOVASCULAR RISK<40 mg/dl - HIGH CARDIOVASCULAR RISKCO2 [Moles/Vol]28.7 mmol/L21.0-32.0 [facility] Memorial HospitalCreatinine [Mass/Vol]1.51 mg/dLHigh0.55-1.02 [facility] Memorial HospitalGFR/1.73 sq M.predicted MDRD (S/P/Bld) [Vol rate/Area]42 mL/min/{1.73_m2}Low>=60 mL/min/1.73m 2FSouthwest General Health CenterGlucose [Mass/Vol]172 mg/oKJqgt24-750IqgnbqbxyGrand [facility] Memorial Hospital Potassium [Moles/Vol]3.6 mmol/L3.5-5.1FSouthwest General Health CenterProtein [Mass/Vol]7.6 g/dL6.4-8.2FLicking Memorial Hospitalodium [Moles/Vol]145 mmol/T904-715EocgqxysmGrand Lake Joint Township District Memorial HospitalTriglyceride [Mass/Vol]127 mg/dL <=150[facility] Memorial HospitalUrea nitrogen [Mass/Vol]18.0 mg/dL7.0-18.0 [facility] Memorial HospitalUrea nitrogen/Creatinine [Mass ratio]11.9 mg/mg [facility] Troyerum or plasma albumin/globulin mass ratio Ordered By: Darryl Pedraza on 08-69-0633Vvlfrqi/Globulin [Mass ratio]0.9 {ratio} [facility] Troyerum or plasma anion gap determinationOrdered By: Darryl Pedraza on 42-91-5643Sjsbv gap [Moles/Vol]15.9 mmol/LFLicking Memorial Hospitalerum or plasma total cholesterol/high density lipoprotein (HDL) cholesterol mass ratOrdered By: Darryl Pedraza on 10-12-2024 Cholesterol.total/Cholesterol in HDL [Mass ratio]2.3 {ratio}[facility] Memorial HospitalComment on above:3.3 - 4.4 LOW RISK4.4 - 7.1 AVERAGE RISK7.1 - 11.0 MODERATE RISK>11.0 HIGH RISKOffice Visiton 15-73-9553Pmbhup-up visit [id number] Ruma Carlton Mu 1960 F Date Provider Department Center 08/31/2024 KONRAD MACDONALD SREEDHAR [facility] Family History Problem Relation Age of Onset [...] Alive Nephew Alive Neg Hx Level of Service:92635 [place] OFFICE/OUTPATIENT ESTABLISHED LOW MDM 20 [facility] OhioOffice Visiton 12-29-7463Yykqrs-up visit [id number] Ruma Carlton Mu 1960 F Date Provider Department Center 08/04/2024 AL TANG SREEDHAR [facility] Family History Problem Relation Age of Onset [...] Alive Nephew Alive Neg Hx Level of Service:76268 [place] OFFICE/OUTPATIENT ESTABLISHED HIGH MDM 40 [facility] OhioANESon 45-17-9494TWRG Attestation signed by Marcello Wagner MD at 07/21/2024 12:15 PM I have spoken with and examined Ms. Carlton and agree with Dr. Mann's exam. She has intact R femoral, popliteal and DP pulses. She understands risks and consents to proceed. Patient: Ruma Carlton Procedure Information Date/Time: 07/21/24 1145 Procedures: Coronary angiography (Left) - PC PENDING Right heart cath Location: [facility] BETTING AGENCY COUNTER CLERK 3 / [facility] (Cath) Providers: Marcello aWgner MD Clinical information reviewed: Tobacco Allergies Meds [...] discussed with attending. Additional Equipment RequestsNormalUniversity of Baylor Scott & White Medical Center – IrvingHPon 18-71-2358QYIsihjqm Of Present Illness Ruma Carlton is a [...] is mildly enlarged. Overall (more content not included)...[facility] HospitalNURSNOTEon 77-35-6787IDGSDELZGunrrot ambulated to bathroom. Gait steady. Right groin cath site without bleeding or hematomaNoalUniPremier Health Miami Valley HospitalNURSNOTEDr. Wagner assessed patient and site. Told her she could be discharged home at 6:30pmNoThe Christ HospitalJANETH educated pt on d/c instructions. This [...] wheeled off of unit with all of belongings.[facility] HospitalOrders Only89-70-5624Mbmkta [id number] Ruma Carlton 1960 Date Provider Department Center 07/13/2024 166-DARRYL [...] Daughter Alive Daughter Alive Nephew Alive Neg HxNormalUAultman Orrville Hospital36on 29-88-683422Bbi Francie Pedraza CNP - patient needs scheduled for heart cath with Dr. Johnson s/p abnormal stress test performed on 07/01/2024. Patient made aware. Orders entered.[facility] HospitalOrders Onlyon 22-96-6841Nicsnw [id number] Ruma Carlton 1960 Date Provider Department Center 07/06/2024 8[facility]ACY [facility] Family History Problem Relation Age [...] Daughter Alive Daughter Alive Nephew Alive Neg HxNormalUniversMemorial Health System Marietta Memorial HospitalOffice Visiton 66-66-3948Evqzuu- up [id number] Ruma Carlton Mu 1960 F Date Provider Department Center 06/29/2024 KONRAD MACDONALD CARD [facility] Family History [...] Alive Nephew Alive Neg Hx Level of Service:68259 [place] OFFICE/OUTPATIENT NEW MODERATE MDM 45 MINUTESNoal [facility]36on 06-63-943990Jgycb to patient and advised her that Francie Milo would like her to increase her spirolactone to 12.5 and have a BMP done in 1 month. Patient verbalized understanding.[facility]36on 93-53-106108Voyblkp Tucker, SUPERVISOR VAT [employer] P Cardiology Clinical Support Pool Her labs show a slight bump in her kidney function. Would like her to go back to spironolactone 12.5mg daily. Follow up BMP in 1 month. Thank you Left message for patient to call back.[facility] 36on 45-39-343472Rcwu, lets order for a lexiscan stress test please. Please remind her to get follow up BMP since we increased her aldactone. Thank youNKnox Community Hospital37on *We are increasing spironolactone to 25mg daily *Have lab work done around 06/02/2024 to check kidney function with the increase in spironolactone. *We will call you in 1-2 weeks to see how you are feeling. *Follow-up after event monitor comes off.[facility] HospitalOffice Visiton 90-51-4616Qyhjhv-up [id number] Ruma Carlton 1960 F Date Provider Department Center 05/26/2024 DARRYL BRAUN CARD [facility] Family History Problem Relation Age of [...] Alive Nephew Alive Neg Hx Level of Service:41608 [place] OFFICE/OUTPATIENT ESTABLISHED MOD MDM 30 MIN Reason for Visit and Comments: Leg Swelling [] Shortness of Breath [683181] Congestive Heart Failure [127] Coronary Artery Disease [187][facility]37on *Have lab work done today. *If labs look okay, we will let you know to increase lasix to 40mg twice daily for 1 week. *We switched atorvastatin to rosuvastatin 20mg daily. We will plan to get follow-up labs in 2 months to follow-up on cholesterol levels and liver function.[facility] HospitalEstimated glomerular filtration rate (GFR) non- Americanon 48-80-0740MYK/1.73 sq M.predicted among non-blacks MDRD (S/P/Bld) [Vol rate/Area]Estimated glomerular filtration rate (GFR) non- AmericanLow>=60 mL/min/1.73m 2FSouthwest General Health CenterLaboratory - Chemistry and Chemistry - challengeon 92-52-1150Pyectyb [Mass/Vol]9.4 mg/dL8.5-10.1FSouthwest General Health CenterChloride [Moles/Vol] 102 mmol/J40-912GprgsqclwGrand Lake Joint Township District Memorial HospitalCO2 [Moles/Vol]30.4 mmol/L 21.0-32.0[facility] Memorial HospitalCreatinine [Mass/Vol]1.12 mg/dLHigh 0.55-1.02[facility] Memorial HospitalGFR/1.73 sq M.predicted MDRD (S/P/Bld) [Vol rate/Area]60 mL/min/{1.73_m2}>=60 mL/min/1.73m 2FSouthwest General Health CenterGlucose [Mass/Vol]158 mg/dOAgct21-932UgtgzmoinGrand Lake Joint Township District Memorial Hospital Potassium [Moles/Vol]3.8 mmol/L3.5-5.1FLicking Memorial Hospitalodium [Moles/Vol]140 mmol/K023-290UmrwybuiyGrand Lake Joint Township District Memorial HospitalUrea nitrogen [Mass/Vol]22.0 mg/dLHigh7.0-18.0[facility] Memorial HospitalUrea nitrogen/Creatinine [Mass ratio]19.6 mg/mgGrand Lake Joint Township District Memorial Hospital Office Visiton 38-96-7737Vpsheb-up [id number] Gabbi Carltonjamar Dobbins 1960 F Date Provider Department Center 05/20/2024 iMah-DARRYL PEDRAZA SREEDHAR [facility] Family History Problem Relation [...] Alive Nephew Alive Neg Hx Level of Service:97478 [place] OFFICE/OUTPATIENT ESTABLISHED MOD MDM 30 MIN Reason for Visit and Comments: Hospital Follow-up [832] Congestive Heart Failure [127]NormalLake County Memorial Hospital - Westerum or plasma anion gap determinationon 92-02-5009Uwzak gap [Moles/Vol]Serum or plasma anion gap determinationGrand Lake Joint Township District Memorial HospitalTelephoneon 05-18-2024 [id number] BrandtRuma 1960 F Date Provider Department Center 05/18/2024 83194-SOHIOUZCELESTINA [facility] V[facility] LAB [place] HeartVAS Family History [...] Visit and Comments: HF post discharge call. [Other][facility] Documentationon [id number] Ruma Carlton 1960 Provider Department Center 05/17/202498025-ZSJKFMXCELESTINA [facility]OOER [facility] IN HeartVAS Family History Problem Relation Age of [...] and Comments: HF inpatient satisfaction survey sent. [Other][facility] HospitalTelephone [id number] Ruma Carlton 1960 Provider Department Center 05/17/202415167-MXNFEMKCELESTINA SALDIVAR [facility] IN HeartVAS Family History Problem Relation Age of [...] Visit and Comments: HF post discharge call. [Other][facility]36on 72-25-544613Khjm Discharge Call Good afternoon, I am Sudha De La Paz, RN a lead nurse from [facility]. I am calling you to follow [...] discuss? No Patient Name Ruma Carlton Date 05/15/24NormalUniversMemorial Health System Marietta Memorial HospitalTelephoneon 05-15-2024 [id number] Ruma Carlton 1960 F Date Provider Department Center 05/15/2024 SUDHA [facility] Medical Family History Problem Relation Age of Onset [...] Visit and Comments: post discharge call backs [Other]NormalOhioHealth Nelsonville Health Center30on [id number] Case Management Update Multidisciplinary rounds have been completed. Barriers to Discharge: Patient is medically ready for hospital discharge at this time. AVS has been completed, and primary RN has been notified of patients discharge readiness. Patient will discharge to home, and family will provide patients transportation. No further OTM needs identified at this time. [facility] will continue to follow patient and assist [...] Ancillary Consults (From admission, onward) Start Ordered 05/11/242220 Inpatient consult to Social Work Once Provider: (Not yet assigned) Question Answer Comment Select all services needed for the patient Home Health Types of Home Health Service needed Longterm Types of Home Health Service needed Physical Therapy Please indicate your approval for this care by adding your name here: KENDELL GALLARDO 05/11/24 2228NormalUniversMemorial Health System [facility]30The patient is Moderately Stable - [...] and behaviors that affect risk of falls [place] fall precautions as indicated by assessment Educate [...] maintained or improved Outcome: Progressing Flowsheets (Taken 05/14/2024 0744) Care Plan - Patient's Chronic Conditions and Co-Morbidity Symptoms are Monitored and Maintained or Improved: Collaborate with multidisciplinary team to address chronic and comorbid conditions and prevent exacerbation or deterioration Update acute care plan with appropriate goals if chronic or comorbid symptoms are exacerbated and prevent overall improvement and discharge Monitor and assess patient's chronic conditions and comorbid symptoms for stability, deterioration, or improvementNormalUniversMemorial Health System Marietta Memorial HospitalBASIC METABOLIC PANELon 10-94-0867Bxkpk gap [Moles/Vol]14 mmol/LNormal7-20 [facility] CenterComment on above:Performed By: #### [id number] ####[facility] ([facility])[address] [place] [place], [place] [address]Oudzlht [Mass/Vol]9.5 mg/dLNormal8.6-10.3UnSt. John of God HospitalComment on above:Performed By: #### [id number] ####[facility] (AKER)[address] [place] [place], [place] [address]Zmqzvvwq [Moles/Vol]104 mmol/JQhkjzf37-042CbgriqmvhlSt. John of God HospitalComment on above:Performed By: #### [id number] ####[facility] ([facility]ER)[address] [place], [place] [address]CA4 [Moles/Vol]23 mmol/LNormal 21-31UnSt. John of God HospitalComment on above:Performed By: #### [id number] ####[facility] ([facility])[address] [place], [place] [address]Gjxurgxuko [Mass/Vol]1.04 mg/dLNormal0.60-1.20UnSt. John of God HospitalComment on above:Performed By: #### [id number] ####[facility] ([facility])[address] [place], [place] [address]YFXKLEUFSI FILTRATION RATE ML/MIN/1.73 SQ M.BBFVFJEST09.8 mL/min/1.73m*2Normal>60.0UnSt. John of God HospitalComment on above: Result Comment: The [facility]???s estimated glomerular filtration rate (eGFR) will [...] anyone group of individuals.Performed By: #### [id number] ####[facility] ([facility])[address] [place], [place] [address]Anfxbzw [Mass/Vol]128 mg/yTQfoh53-667LoumzgglgaSt. John of God HospitalComment on above:Performed By: #### [id number] ####[facility] ([facility])[address] [place], [place] [address]Sgsywtxjm [Moles/Vol]4.5 mmol/L Normal3.5-5.1UnSt. John of God HospitalComment on above:Performed By: #### [id number] ####[facility] ([facility])[address] [place] [address] Sodium [Moles/Vol]136 mmol/LIeuxfq109-589LpssdwzukwSt. John of God Hospital Comment on above:Performed By: #### [id number] ####[facility] ([facility])[address] [place], [place] [address]Nyeh nitrogen [Mass/Vol]23 mg/dLNormal7-25 [facility] CenterComment on above:Performed By: #### [id number] ####[facility] ([facility])[address] [place], [place] [address]UGXG NITROGEN/CREATININE (MASS RATIO) IN SER/PLAS22.1NormalUnSt. John of God HospitalComment on above:Performed By: #### [id number] ####[facility] ([facility])[address] [place], [place] [address]CIMvq 65-53-9683Qapcikyclxo distribution width (RBC) [Ratio]14.3 %Vkpkkx05.5-15.0UnSt. John of God HospitalComment on above:Performed By: #### [id number] ####[facility] ([facility])[address] [place] [address]OXJODIBQDQT MEAN CORPUSCULAR HEMOGLOBIN CONCENTRATION (G/DL) BY UUJGMLZBF24.9 g/dLLow32.0-35.0UnSt. John of God HospitalComment on above:Performed By: #### [id number] ####[facility] ([facility])[address] [place] [address]Pjlfsbtaux (Bld) [Volume fraction]45.8 %Rlumnq64.0-48.0UnSt. John of God HospitalComment on above:Performed By: #### [id number] ####[facility] ([facility])[address] [place], [place] [address]Kfwhmprtfe (Bld) [Mass/Vol]14.6 g/eRKqutqq41.0-15.0UnSt. John of God HospitalComment on above:Performed By: #### [id number] ####[facility] ([facility])[address] [place], [place] [address]DSO (RBC) [Entitic mass] 29.1 emFlowlt06.0-33.0UnSt. John of God HospitalComment on above: Performed By: #### [id number] ####[facility] ([facility])[address] [place], [place] [address]BAM (RBC) [Entitic vol]91.4 bYBvjuui55.0-98.0UnSt. John of God HospitalComment on above:Performed By: #### [id number] ####[facility] ([facility])[address] [place], [place] [address]EVFTRZXCZ (10*3/UL) IN BLOOD AUTOMATED RVYTU365 10*3/zHZjdrgu705-982SumidagxtoSt. John of God Hospital Comment on above:Performed By: #### [id number] ####[facility] ([facility])[address] [place], [place] [address]FSI (Bld) [#/Vol]5.01 10*6/uLHigh3.80-5.00 [facility] CenterComment on above:Performed By: #### [id number] ####[facility] ([facility])[address] [place], [place] [address]OSG (Bld) [#/Vol]6.81 10*3/uLNormal4.00-10.60UnSt. John of God HospitalComment on above:Performed By: #### [id number] ####[facility] ([facility])[address] [place], [place] [address]BPMQ GLUCOSE METER UNSOLICITED RESULTSon 46-43-4341Lgbfbfy [Mass/Vol]206 mg/dNIkef79-455ZspqgnicahSt. John of God HospitalComment on above:Order Comment: Waived Testing in the ED is performed under the ED CLIA certificate #[id number].Result Comment: dcundicPerformed By: #### [id number] #### [facility] ([facility]) [address] [place], [place] [address]Jawzkdu [Mass/Vol]146 mg/jIJhwq09-317VzbzztaqihSt. John of God HospitalComment on above:Order Comment: Waived Testing in the ED is performed under the ED CLIA certificate #[id number].Result Comment: [email or web address] Performed By: #### [id number] #### [facility] ([facility]) [place] [id number] 25-85-854931Sqv patient is Moderately Stable - Low risk [...] baseline comfort level Outcome: Progressing Flowsheets (Taken 05/13/2024 2351) Verbalizes/displays adequate comfort level or baseline comfort [...] patient/family on patient safety, including physical limitations [place] fall precautions as indicated by assessment Instruct patient to call for assistance with activity based on assessment Modify environment to reduce risk of injury Consider OT/PT consult to assist with strengthening/mobility Problem: Discharge Planning Goal: Discharge to home or other facility with appropriate resources Outcome: Progressing Flowsheets (Taken 05/13/20241) Discharge to home or other facility with appropriate resources: Identify barriers to discharge with patient and caregiver Arrange for needed discharge resources and transportation as appropriate Identify discharge learning needs (meds, wound care, etc) Problem: Chronic Conditions and Co-morbidities Goal: Patient's chronic conditions and co-morbidity symptoms are monitored and maintained or improved Outcome: Progressing Flowsheets (Taken 05/13/20242350) Care Plan - Patient's Chronic Conditions and Co-Morbidity Symptoms are Monitored and Maintained or Improved: Monitor and assess patient's chronic conditions and comorbid symptoms for stability, deterioration, or improvement Collaborate with multidisciplinary team to address chronic and comorbid conditions and prevent exacerbation or deteriorationNoalUniPremier Health [facility]30Daily Case Management Update Multidisciplinary rounds have [...] Health Types of Home Health Service needed Longterm Types of Home Health Service needed Physical Therapy Please indicate your approval for this care by adding your name here: KENDELL GALLARDO 05/11/24 2228NormalUniversMemorial Health System [facility]30The patient is Moderately Stable - Low risk of patient condition declining or worsening The patient's goals for the shift include rest and comfort The clinical goals for the shift include vss;comfort;ambulation;rest Over the shift, the patient did make progress toward the following goals. Barriers to progression include n/a. Recommendations to address these barriers include n/a.NormalUnSt. John of God HospitalBASIC METABOLIC PANELon 30-02-4120Ppgkd gap [Moles/Vol]13 mmol/LNormal7-20UnSt. John of God HospitalComment on above:Performed By: #### [id number] ####[facility] ([facility])[address], [place] [address]Phzgjny [Mass/Vol]9.1 mg/dLNormal 8.6-10.3UnSt. John of God HospitalComment on above:Performed By: #### [id number] ####[facility] ([facility])[address], [place] [address]Aywruhne [Moles/Vol]99 mmol/DCzuklg28-837JkhearjzbuSt. John of God HospitalComment on above:Performed By: #### [id number] ####[facility] (AKER)[address], [place] [address]XS3 [Moles/Vol]29 mmol/KSnajms10-82GmvxudczvhSt. John of God HospitalComment on above:Performed By: #### [id number] ####[facility] ([facility])[address], [place] [address]Kyglupjmrs [Mass/Vol]1.29 mg/dLHigh 0.60-1.20UnSt. John of God HospitalComment on above:Performed By: #### [id number] ####[facility] ([facility])[address] [place] [address]YLYBDLKZPI FILTRATION RATE ML/MIN/1.73 SQ M.CRMSIGTPT98.9 mL/min/1.73m*2Low>60.0UnSt. John of God HospitalComment on above:Result Comment: [facility]???s estimated glomerular filtration rate (eGFR) will [...] group of individuals. Performed By: #### [id number] ####[facility] ([facility])[address] [place] [address]Pqpmmpv [Mass/Vol]135 mg/hPAvrp29-756FebesxdkgmSt. John of God HospitalComment on above:Performed By: #### [id number] ####[facility] ([facility])[address] [place], [place] [address]Ndutnwsto [Moles/Vol]3.5 mmol/LNormal 3.5-5.1UnSt. John of God HospitalComment on above:Performed By: #### [id number] ####[facility] ([facility])[address] [place], [place] [address]Cejvrp [Moles/Vol]137 mmol/FYtlyqx448-355InwqipzjjlSt. John of God HospitalComment on above:Performed By: #### [id number] ####[facility] ([facility])[address] [facility], [place] [address]Mjkg nitrogen [Mass/Vol]19 mg/dLNormal7-25UnSt. John of God HospitalComment on above:Performed By: #### [id number] ####[facility] ([facility])[address] [place], [place] [address]TYVQ NITROGEN/CREATININE (MASS RATIO) IN SER/PLAS14.7NormalUniversMemorial Health System [facility]etta Memorial HospitalComment on above: Performed By: #### [id number] ####[facility] ([facility])[address] [place], [place] [address]RPRN GLUCOSE METER UNSOLICITED RESULTSon 39-92-6841Dasrezc [Mass/Vol] 161 mg/lANdjz65-279LrtglhllilOhioHealth Nelsonville Health CenterComment on above:Order Comment: Waived Testing in the ED is performed under the ED CLIA certificate #[id number].Result Comment: wchasePerformed By: #### [id number] #### [facility] ([facility]) [address] [place], [place] [address]Xuwbvwa [Mass/Vol]149 mg/kPHdwj66-175TkfanttejaOhioHealth Nelsonville Health CenterComment on above:Order Comment: Waived Testing in the ED is performed under the ED CLIA certificate #[id number].Result Comment: [email or web address] Performed By: #### [id number] #### [facility] ([facility]) [address] [place], [place] [address]Ofvuznr [Mass/Vol]183 mg/pVVivc61-004EfqyneubeeOhioHealth Nelsonville Health CenterComment on above:Order Comment: Waived Testing in the ED is performed under the ED CLIA certificate #[id number].Result Comment: [email or web address] Performed By: #### [id number] #### [facility] ([facility]) [address] [place], [place] [address]Irneyqd [Mass/Vol]141 mg/bSAhil51-325SqmqrejkurOhioHealth Nelsonville Health CenterComment on above:Order Comment: Waived Testing in the ED is performed under the ED CLIA certificate #[id number].Result Comment: [email or web address] Performed By: #### [id number] ####[facility] ([facility])[address] [place], [place] [address]dn 34-49-371282Vxr patient is Moderately Stable - Low risk [...] baseline comfort level Outcome: Progressing Flowsheets (Taken 05/12/20242301) Verbalizes/displays adequate comfort level or baseline comfort [...] from fall injury Outcome: Progressing Flowsheets (Taken 05/12/20242301) Free from fall injury: Assess patient frequently for physical needs Identify cognitive and physical deficits and behaviors that affect risk of falls [place] fall precautions as indicated by assessment Educate patient/family on patient safety, including physical limitations Instruct patient to call for assistance with activity based on assessment Modify environment to reduce risk of injury Consider OT/PT consult to assist with strengthening/mobility Problem: Discharge Planning Goal: Discharge to home or other facility with appropriate resources Outcome: Progressing Flowsheets (Taken 05/12/20242301) Discharge to home or other facility with appropriate resources: Identify barriers to discharge with patient and caregiver Arrange for needed discharge resources and transportation as appropriate Identify discharge learning needs (meds, wound care, etc) Problem: Chronic Conditions and Co-morbidities Goal: Patient's chronic conditions and co-morbidity symptoms are monitored and maintained or improved Outcome: Progressing Flowsheets (Taken 05/12/20242301) Care Plan - Patient's Chronic Conditions and Co-Morbidity Symptoms are Monitored and Maintained or Improved: Monitor and assess patient's chronic conditions and comorbid symptoms for stability, deterioration, or improvement Collaborate with multidisciplinary team to address chronic and comorbid conditions and prevent exacerbation or deteriorationNoalUAultman [facility] Hospital30Daily Case Management Update Multidisciplinary rounds have been completed. Barriers to Discharge: Transfer from [facility] ER for heart cath. Patient presented with complaint of SOB worsening x1-2 weeks. Workup at [facility] showed indications of acute on chronic [...] Orders (From admission, onward) Start Ordered 05/11/24 222 Inpatient consult to Cardiology Once Specialty: Cardiology Provider: (Not yet assigned) Question Answer Comment Consulting Group CARDIOLOGY TEAM Reason for Consult? HF, fluid overload, recommended for heart cah per referring hospital ([place]) Level of Consultation Consultation and Management 05/11/24 222 Ancillary Consults (From admission, onward) Start Ordered 05/11/24 2221 Inpatient consult to Social Work Once Provider: (Not yet assigned) Question Answer Comment Select all services needed for the patient Home Health Types of Home Health Service needed Longterm Types of Home Health Service needed Physical Therapy Please indicate your approval for this care by adding your name here: KENDELL GALLARDO 05/11/24 2228NormalUniPremier Health [facility]30The patient is Moderately Stable - Low risk of patient condition declining or worsening The patient's goals for the shift include rest and comfort The clinical goals for the shift include vss Over the shift, the patient did make progress toward the following goals. Barriers to progression include n/a. Recommendations to address these barriers include n/a.[facility]30The patient is Moderately Stable - [...] from fall injury Outcome: Progressing Flowsheets (Taken 05/12/2024150) Free from fall injury: Assess patient frequently for physical needs Identify cognitive and physical deficits and behaviors that affect risk of falls [place] fall precautions as indicated by assessment Educate [...] and comorbid conditions and prevent exacerbation or deteriorationNormalUniversChildren's Hospital of Columbus 33-55-5423SWLAFFBEY PARTIAL THROMBOPLASTIN TIME IN PPP BY COAGULATION ASSAY49.3 FvfdcwcSpmn36.0-35.0UnSt. John of God Hospital Comment on above:Order Comment: Check aPTT every 6 hours while on heparin infusion, or per protocol.Result Comment: Clinical significance of the APTT is questionable in the presence of heparin.Performed By: #### [id number] #### [facility] (BEAKER) [address] [place], [place] [address]UQHlh 68-76-1668Vovselatmbb distribution width (RBC) [Ratio]13.9 %Nxwcsm06.5-15.0UnSt. John of God HospitalComment on above:Performed By: #### [id number] #### [facility] ([facility]ER) [address] [place], [place] [address]TQJITUSBNDG MEAN CORPUSCULAR HEMOGLOBIN CONCENTRATION (G/DL) BY HJIBFRIWR12.5 g/kVVyileg89.0-35.0UnSt. John of God HospitalComment on above:Performed By: #### [id number] #### [facility] ([facility]) [address] [place] [address]Avtdpnqffa (Bld) [Volume fraction]41.8 %Wjzatw74.0-48.0 [facility] CenterComment on above:Performed By: #### [id number] #### [facility] ([facility]) [address] [place] [address]Eamzkrhkev (Bld) [Mass/Vol]13.6 g/tQUhdhhb31.0-15.0UnSt. John of God HospitalComment on above:Performed By: #### [id number] #### [facility] ([facility]) [address] [place] [address]YNZ (RBC) [Entitic mass]28.9 ylNdbfvj27.0-33.0UnSt. John of God HospitalComment on above:Performed By: #### [id number] #### [facility] ([facility]) [address] [place] [address]EUU (RBC) [Entitic vol]88.9 hEZztdoh12.0-98.0UnSt. John of God HospitalComment on above:Performed By: #### [id number] #### [facility] ([facility]) [address] [place] [address]SRAENIFDA (10*3/UL) IN BLOOD AUTOMATED [id number] 10*3/uLNormal 150-400UnSt. John of God HospitalComment on above:Performed By: #### [id number] #### [facility] ([facility]) [address] [place] [address]VBM (Bld) [#/Vol]4.70 10*6/uLNormal3.80-5.00UnSt. John of God HospitalComment on above:Performed By: #### [id number] #### [facility] ([facility]) [address] [place] [address]FEN (Bld) [#/Vol]6.18 10*3/uLNormal4.00-10.60[facility] CenterComment on above:Performed By: #### [id number] #### [facility] ([facility]) [address] [place], [place] [address]SXEZVQYai 76-22-0102HJINQMJCoyse Nutrition Assessment: Name: Ruma Carlton Date: 1960 Date of Visit: 05/12/24 Admission Dx: Acute on chronic congestive heart failure, unspecified heart failure type (CMS/HCC) [I50.9] Reason for assessment: MD referral (HF education) Information obtained from: patient, medical record, and nursing Past Medical History: Diagnosis Date Diabetes mellitus (CMS/HCC) 2019 Disease of thyroid [...] PHOS 3.1 05/11/2024 2303 MG 2.2 05/11/2024 230 HGBA1C 5.8 12/06/2023 0618 HGB 13.6 05/12/2024 [...] of Nutrition and Dietetics (AND) and the [place] Society of Enteral and Parenteral Nutrition (ASPEN). [...] To reach the Clinical Dietitian, please utilize [employer] chat Friday-Friday from 8AM-4PM or call extension [phone]. For weekends (Friday-Friday) and hols, the Clinical Dietitian can be reached via pager ([phone]) from 9AM-3PM. The Clinical Nutrition Department is unable to respond to [employer] messages on Sundays and .[facility] HospitalCONSULT Attestation signed by Yash Leija [...] chronic heart failure with preserved ejection fraction, [place] Heart Association functional class III, we will continue to optimize guideline directed medical therapy. It is also quite likely that he has coexistent paroxysmal atrial fibrillation and for that we will give him an event monitor at the time of discharge with likely plan for catheter ablation to maintain durable sinus rhythm in the future. Yash Leija MD, ScM, MSc Cardiac Joy Loading Machine Operator Email: [email or web address] Cardiology Consult Note Reason for Consult: HF exacerbation HPI: Ruma Carlton is a 63 y.o. female with a past medical history significant for chronic congestive diastolic heart failure, coronary heart disease status post CABG x 3 on November 2023, hypothyroidism, paroxysmal atrial fibrillation, type 2 diabetes mellitus, hyperlipidemia, nicotine dependence, morbid obesity with BMI of 51.02. Patient presented to [facility] from [facility] ER for possible heart catheterization. Patient presented to the [facility] ER on 05/10 with complaints of gradually progressive shortness of breath for 1-2 weeks. Patient endorsed exertional shortness of breath and weight gain of 4 at least 10 pounds. Endorsed bilateral lower extremity edema for the past few weeks. Workup at [facility] demonstrated elevated BNP, elevated troponin and EKG showing NSTEMI. Patient was admitted to the ICU at [facility] overnight and was placed on heparin [...] a past medical history of Diabetes mellitus (CMS/HCC) (approx 2019), Disease of [...] mg, oral, Daily venlafax (more content not included)...NormalUnSt. John of God Hospital POCT GLUCOSE METER UNSOLICITED RESULTSon 07-83-2243Yczonxa [Mass/Vol]165 mg/dL Wpzo20-400YcmymsstptSt. John of God HospitalComment on above:Order Comment: Waived Testing in the ED is performed under the ED CLIA certificate #[id number]. Result Comment: wchasePerformed By: #### [id number] ####[facility] ([facility])[address] [facility], [place] [address]Jmbmgdg [Mass/Vol]183 mg/mOWkep79-449 [facility] CenterComment on above:Order Comment: Waived Testing in the ED is performed under the ED CLIA certificate #[id number].Result Comment: [email or web address] By: #### [id number] #### [facility] ([facility]) [address] [facility], [place] [address]Xbnmjds [Mass/Vol]152 mg/jWHwaa16-514VztngdwcsfSt. John of God HospitalComment on above:Order Comment: Waived Testing in the ED is performed under the ED CLIA certificate #[id number].Result Comment: bflood Performed By: #### [id number] #### [facility] ([facility]) [address] [facility] [place], [place] [address]Rpdivpc [Mass/Vol]189 mg/tEJifr72-987HnbiobupfgSt. John of God HospitalComment on above:Order Comment: Waived Testing in the ED is performed under the ED CLIA certificate #[id number].Result Comment: bflood Performed By: #### [id number] ####[facility] ([facility])[address] [facility], [place] [address]AYPNFZBBJUA VIRUS PCR PANELon 01-96-3440FHHUHGDPUP DETECTION BY PCRNot detectedNormalNot DetectedUnSt. John of God HospitalComment on above:Order Comment: Testing methodology is a multiplexed nucleic acid test intended for the simultaneousqualitative detection and differentiation of nucleic acids from multiple viral and bacterial respiratory organisms in nasopharyngeal swabs (ESTIMATE CLERK).Performed By: #### [id number] ####[facility] ([facility] HOSPITAL)[address] [facility], [place] [address]B. PARAPERTUSSIS DNANot detectedNormal Not DetectedUnSt. John of God HospitalComment on above:Order Comment: Testing methodology is a multiplexed nucleic acid test intended for the simultaneousqualitative detection and differentiation of nucleic acids from multiple viral and bacterial respiratory organisms in nasopharyngeal swabs (ESTIMATE CLERK).Performed By: #### [id number] ####[facility] ([facility])[address] [place], [place] [address]YRCAQFDKGA PERTUSSIS DNA PRESENCE IN UNSPECIFIED SPECIMEN BY GA*Not detectedNormalNot DetectedUnSt. John of God HospitalComment on above:Order Comment: Testing methodology is a multiplexed nucleic acid test intended for the simultaneousqualitative detection and differentiation of nucleic acids from multiple viral and bacterial respiratory organisms in nasopharyngeal swabs (ESTIMATE CLERK).Performed By: #### [id number] ####[facility] ([facility])[address] [place], [place] [address]KXNVCLQMLQDUV PNEUMONIAENot detected NormalNot DetectedUnSt. John of God HospitalComment on above:Order Comment: Testing methodology is a multiplexed nucleic acid test intended for the simultaneousqualitative detection and differentiation of nucleic acids from multiple viral and bacterial respiratory organisms in nasopharyngeal swabs (ESTIMATE CLERK).Performed By: #### [id number] ####[facility] ([facility])[address] [place], [place] [address]YBUKAQZNXEA 229ENot detectedNormalNot DetectedUnSt. John of God HospitalComment on above:Order Comment: Testing methodology is a multiplexed nucleic acid test intended for the simultaneousqualitative detection and differentiation of nucleic acids from multiple viral and bacterial respira tory organisms in nasopharyngeal swabs (ESTIMATE CLERK).Performed By: #### [id number] ####[facility] ([facility])[address] [place], [place] [address]WYYSUOXHOYP WWJ0Lun detectedNormalNot DetectedUnSt. John of God HospitalComment on above: Order Comment: Testing methodology is a multiplexed nucleic acid test intended for the simultaneousqualitative detection and differentiation of nucleic acids from multiple viral and bacterial respiratory organisms in nasopharyngeal swabs (ESTIMATE CLERK).Performed By: #### [id number] ####[facility] ([facility])[address] [place], [place] [address]HCTWSBHRIWC RS74Ucv detectedNormalNot DetectedUnSt. John of God HospitalComment on above:Order Comment: Testing methodology is a multiplexed nucleic acid test intended for the simultaneousqualitative detection and differentiation of nucleic acids from multiple viral and bacterial respira tory organisms in nasopharyngeal swabs (ESTIMATE CLERK).Performed By: #### [id number] ####[facility] ([facility])[address] [place], [place] [address]SMPTDUSXIKX TH83Xwb detectedNormalNot DetectedUnSt. John of God HospitalComment on above: Order Comment: Testing methodology is a multiplexed nucleic acid test intended for the simultaneousqualitative detection and differentiation of nucleic acids from multiple viral and bacterial respiratory organisms in nasopharyngeal swabs (ESTIMATE CLERK).Performed By: #### [id number] ####[facility] ([facility])[address] [place], [place] [address]TJXZO METAPNEUMOVIRUSNot detectedNormalNot DetectedUnSt. John of God HospitalComment on above:Order Comment: Testing methodology is a multiplexed nucleic acid test intended for the simultaneousqualitative detection and differentiation of nucleic acids from multiple viral and bacterial respiratory organisms in nasopharyngeal swabs (ESTIMATE CLERK).Performed By: #### [id number] ####[facility] ([facility])[address] [place], [place] [address]XWNJS RHINOVIRUS+ENTEROVIRUSNot detectedNormalNot DetectedUnSt. John of God HospitalComment on above:Order Comment: Testing methodology is a multiplexed nucleic acid test intended for the simultaneousqualitative detection and differentiation of nucleic acids from multiple viral and bacterial respiratory organisms in nasopharyngeal swabs (ESTIMATE CLERK).Performed By: #### [id number] ####[facility] ([facility])[address] [place], [place] [address]JRMAHYLBP ANot detected NormalNot DetectedUnSt. John of God HospitalComment on above:Order Comment: Testing methodology is a multiplexed nucleic acid test intended for the simultaneousqualitative detection and differentiation of nucleic acids from multiple viral and bacterial respiratory organisms in nasopharyngeal swabs (ESTIMATE CLERK).Performed By: #### [id number] ####[facility] ([facility])[address] [place], [place] [address]LVMMXXYGB BNot detectedNormalNot DetectedUnSt. John of God HospitalComment on above:Order Comment: Testing methodology is a multiplexed nucleic acid test intended for the simultaneousqualitative detection and differentiation of nucleic acids from multiple viral and bacterial respira tory organisms in nasopharyngeal swabs (ESTIMATE CLERK).Performed By: #### [id number] ####[facility] ([facility])[address] [place], [place] [address]NFAWGJIGWN PNEUMONIAENot detectedNormalNot DetectedUnSt. John of God HospitalComment on above: Order Comment: Testing methodology is a multiplexed nucleic acid test intended for the simultaneousqualitative detection and differentiation of nucleic acids from multiple viral and bacterial respiratory organisms in nasopharyngeal swabs (ESTIMATE CLERK).Performed By: #### [id number] ####[facility] ([facility])[address] [place], [place] [address]KIAZJUYWYNQQF 1Not detectedNormalNot DetectedUnSt. John of God HospitalComment on above:Order Comment: Testing methodology is a multiplexed nucleic acid test intended for the simultaneousqualitative detection and differentiation of nucleic acids from multiple viral and bacterial respira tory organisms in nasopharyngeal swabs (ESTIMATE CLERK).Performed By: #### [id number] ####[facility] ([facility])[address] [place], [place] [address]HJUVYQJYATQBF 2Not detectedNormalNot DetectedUnSt. John of God HospitalComment on above: Order Comment: Testing methodology is a multiplexed nucleic acid test intended for the simultaneousqualitative detection and differentiation of nucleic acids from multiple viral and bacterial respiratory organisms in nasopharyngeal swabs (ESTIMATE CLERK).Performed By: #### [id number] ####[facility] ([facility])[address] [place], [place] [address]NQHJSILWCEFNK 3Not detectedNormalNot DetectedUnSt. John of God HospitalComment on above:Order Comment: Testing methodology is a multiplexed nucleic acid test intended for the simultaneousqualitative detection and differentiation of nucleic acids from multiple viral and bacterial respira tory organisms in nasopharyngeal swabs (ESTIMATE CLERK).Performed By: #### [id number] ####[facility] ([facility])[address], [place] [address]WCGCIDCIXIQUA 4Not detectedNormalNot DetectedUnSt. John of God HospitalComment on above: Order Comment: Testing methodology is a multiplexed nucleic acid test intended for the simultaneousqualitative detection and differentiation of nucleic acids from multiple viral and bacterial respiratory organisms in nasopharyngeal swabs (ESTIMATE CLERK).Performed By: #### [id number] ####[facility] ([facility])[address] [facility] [place] [address]ZRLC SYNCYTIAL VIRUSNot detectedNormalNot DetectedUnSt. John of God HospitalComment on above:Order Comment: Testing methodology is a multiplexed nucleic acid test intended for the simultaneousqualitative detection and differentiation of nucleic acids from multiple viral and bacterial respiratory organisms in nasopharyngeal swabs (ESTIMATE CLERK).Performed By: #### [id number] ####[facility] ([facility])[address] [place] [address]VJYF-XrI-7 (COVID-19) RNA CITLALY+probe Ql (Unsp spec)Not detectedNormalNot DetectedUnSt. John of God HospitalComment on above:Order Comment: Testing methodology is a multiplexed nucleic acid test intended for the simultaneousqualitative detection and differentiation of nucleic acids from multiple viral and bacterial respiratory organisms in nasopharyngeal swabs (ESTIMATE CLERK).Performed By: #### [id number] ####[facility] ([facility])[address] [place], [place] [address]RIEXYKFS Ion 30-77-7446Emmkvswp I.cardiac [Mass/Vol]0.03 ng/mLNormal0.00-0.04UnSt. John of God HospitalComment on above:Performed By: #### [id number] #### [facility] ([facility]) [address] [place], [place] [address]Gktcaxrs I.cardiac [Mass/Vol]0.04 ng/mLNormal0.00-0.04UnSt. John of God HospitalComment on above:Performed By: #### [id number] ####[facility] ([facility])[address] [place] [address]AJSMXKDEHY MICROSCOPIC WITH REFLEX CULTUREon 78-76-9304GEJ (#/HPF) IN URINE SEDIMENT3-5AbnormalNone Seen, 0-2UnSt. John of God HospitalComment on above:Performed By: #### [id number] #### [facility] ([facility]) [address], [place] [address]RWKZVKEQ EPITHELIAL CELLS (#/LPF) IN URINE SEDIMENTModerate AbnormalNone Seen, Occasional, FewUnSt. John of God HospitalComment on above:Performed By: #### [id number] #### [facility] ([facility]) [address] [place], [place] [address]JUI (LEUKOCYTE) (#/HPF) IN URINE SEDIMENT6-10AbnormalNone Seen, 0-2UnSt. John of God HospitalComment on above:Performed By: #### [id number] #### [facility] ([facility]) [address] [place], [place] [address]HNWEQLDLZZ WITH REFLEX CULTUREon 15-47-6171QJSSBJXWY, TOTAL PRESENCE IN URINENegativeNorminNegSelect Medical Specialty [facility] Comment on above:Performed By: #### [id number] #### [facility] ([facility]) [address] [place], [place] [address]Uvbxjcr (U)ClearNormalClearOhioHealth Nelsonville Health Center Comment on above:Performed By: #### [id number] #### [facility] ([facility]) [address] [place], [place] [address]Dmiyq (U)Light-YellowNormalColorless, Yellow, Light-Yellow [facility] CenterComment on above:Performed By: #### [id number] #### [facility] ([facility]) [address] [place], [place] [address]INOFNBG (MG/DL) IN URINENormalNormalNormalUniversMemorial Health System Marietta Memorial HospitalComment on above:Performed By: #### [id number] #### [facility] ([facility]) [address] [place], [place] [address]NUAXSDETOC PRESENCE IN URINENegativeNormalNegativeOhioHealth Nelsonville Health CenterComment on above:Performed By: #### [id number] #### [facility] ([facility]) [address] [place], [place] [address]Ngvpynx Ql (U)NegativeNormalNegativeOhioHealth Nelsonville Health CenterComment on above:Performed By: #### [id number] #### [facility] ([facility]) [address] [place] [address]EVKPJYBRK ESTERASE PRESENCE IN URINE BY TEST STRIPSmallAbnormal NegativeUnSt. John of God HospitalComment on above:Performed By: #### [id number] #### [facility] ([facility]) [address] [place] [address]FPMRKVZ PRESENCE IN URINENegativeNormalNegativeUnSt. John of God HospitalComment on above:Performed By: #### [id number] #### [facility] ([facility]) [address] [place] [address]oO (U)6.0 [pH]Normal5.0-8.0[facility] Comment on above:Performed By: #### [id number] #### [facility] ([facility]) [address] [place] [address]Vpyivqq (U) [Mass/Vol]NegativeNormalNegativeUnSt. John of God HospitalComment on above:Performed By: #### [id number] #### [facility] ([facility]) [address] [place] [address]Dpydfbgm gravity (U) [Rel density]1.745Dasaym1.010-1.030 [facility] CenterComment on above:Performed By: #### [id number] #### [facility] ([facility]) [address] [place] [address]THIMUTNBHKRR (MG/DL) IN URINENormalNormalNormalUniversMemorial Health System Marietta Memorial HospitalComment on above:Performed By: #### [id number] #### [facility] ([facility]) [address] [place] [address]QTZIzx 96-83-8003NARKLSRNF PARTIAL THROMBOPLASTIN TIME IN PPP BY COAGULATION ASSAY27.4 RrlzikaYlodxi39.0-35.0UnSt. John of God Hospital Comment on above:Order Comment: Baseline aPTT before initiating heparin infusion.Result Comment: Clinical significance of the APTT is questionable in the presence of heparin.Performed By: #### [id number] #### [facility] ([facility]) [address] [place], [place] [address]Llbqgtkbu partial thromboplastin time (aPTT) in platelet poor plasma by coagulation aon 53-41-5454tSLG Coag (PPP) [Time]Activated partial thromboplastin time (aPTT) in platelet poor plasma by coagulation a22.3-36.2 [facility] HospitalB-TYPE NATRIURETIC PEPTIDEon 05-11-2024 Natriuretic peptide B (Bld) [Mass/Vol]537 pg/mLHigh0-100UnSt. John of God HospitalComment on above:Performed By: #### [id number] #### [facility] ([facility]) [address] [place], [place] [address]Oqtevosyi Auto (Bld) [#/Vol]on 70-80-7157Erzcfjxko (Bld) [#/Vol] Automated basophil count0.0-0.1FSouthwest General Health CenterBasophils/100 WBC Auto (Bld)on 54-59-6918Wxlgminym/100 WBC (Bld)Automated basophil %0.2-2.0 [facility] HospitalCB WITH AUTO DIFFERENTIALon 05-11-2024 Basophils (Bld) [#/Vol]0.10 10*3/uLNormal0.00-0.20UnSt. John of God HospitalComment on above:Performed By: #### [id number] ####[facility] ([facility])[address] [place], [place] [address]Mezcftfxz/100 WBC (Bld)1.3 %High 0.0-1.0UnSt. John of God HospitalComment on above:Performed By: #### [id number] ####[facility] ([facility] [place] [address] Eosinophils (Bld) [#/Vol]0.31 10*3/uLNormal0.00-0.50UnSt. John of God HospitalComment on above:Performed By: #### [id number] ####[facility] ([facility])[address] [place], [place] [address]Iascrqhscim/100 WBC (Bld)4.0 %Normal 0.0-6.0UnSt. John of God HospitalComment on above:Performed By: #### [id number] ####[facility] ([facility])[address] [place] [address] Erythrocyte distribution width (RBC) [Ratio]13.9 %Ymftig55.5-15.0UnSt. John of God HospitalComment on above:Performed By: #### [id number] ####[facility] ([facility])[address] [place] [address]EGDQFJHBYDN MEAN CORPUSCULAR HEMOGLOBIN CONCENTRATION (G/DL) BY ZJYKEMUDM95.7 g/oODgcbmw08.0-35.0 [facility] CenterComment on above:Performed By: #### [id number] ####[facility] ([facility])[address] [place] [address]Zbewppvnws (Bld) [Volume fraction]41.6 %Aoutfp57.0-48.0UnSt. John of God Hospital Comment on above:Performed By: #### [id number] ####[facility] ([facility])[address] [place] [address]Obfslkpgrq (Bld) [Mass/Vol]14.0 g/gUNcekhh93.0-15.0 [facility] CenterComment on above:Performed By: #### [id number] ####[facility] ([facility])[address] [place], [place] [address]Gkdniufe granulocytes (Bld) [#/Vol]0.03 10*3/uLNormal0.00-0.20UnSt. John of God HospitalComment on above:Performed By: #### [id number] ####[facility] ([facility])[address] [place] [address]Wscbvmpj granulocytes/100 WBC (Bld)0.4 %Normal0.0-1.0UnSt. John of God HospitalComment on above:Performed By: #### [id number] ####[facility] ([facility])[address] [place] [address] Lymphocytes (Bld) [#/Vol]2.25 10*3/uLNormal1.20-4.00UnSt. John of God HospitalComment on above:Performed By: #### [id number] ####[facility] ([facility])[address] [place] [address]Yjdxntqkous/100 WBC (Bld)29.3 %Normal 20.0-45.0UnSt. John of God HospitalComment on above:Performed By: #### [id number] ####[facility] ([facility])[address] [place] [address]IKO (RBC) [Entitic mass]28.9 tjDowddq09.0-33.0UnSt. John of God Hospital Comment on above:Performed By: #### [id number] ####[facility] ([facility])[address] [place] [address]ILN (RBC) [Entitic vol]86.0 wYIasxoj87.0-98.0 [facility] CenterComment on above:Performed By: #### [id number] ####[facility] ([facility])[address] [place] [address]Jlhmiaved (Bld) [#/Vol]0.50 10*3/uLNormal0.10-1.00UnSt. John of God HospitalComment on above:Performed By: #### [id number] ####[facility] ([facility])[address] [place] [address]Gvukcwdzu/100 WBC (Bld)6.5 %Normal5.0-12.0UnSt. John of God HospitalComment on above:Performed By: #### [id number] ####[facility] ([facility])[address] [place] [address]Oawwmamzbue (Bld) [#/Vol] 4.50 10*3/uLNormal1.60-7.60UnSt. John of God HospitalComment on above: Performed By: #### [id number] ####[facility] ([facility])[address] [place] [address]Kokioucainn/100 WBC (Bld)58.5 %Gsoymk03.0-72.0UnSt. John of God HospitalComment on above:Performed By: #### [id number] ####[facility] ([facility])[address] [place] [place] [address]VJPZ (PER 100 WBCS) BY AUTOMATED COUNT0.0 %Xvnult5JhkvgdzsatSt. John of God HospitalComment on above: Performed By: #### [id number] ####[facility] ([facility])[address] [place] [address]KYGJCSQQQ (10*3/UL) IN BLOOD AUTOMATED DINNS442 10*3/uLNormal 150-400UnSt. John of God HospitalComment on above:Performed By: #### [id number] ####[facility] ([facility])[address] [place] [address]AGQ (Bld) [#/Vol]4.84 10*6/uLNormal3.80-5.00UnSt. John of God Hospital Comment on above:Performed By: #### [id number] ####[facility] ([facility])[address] [place] [address]OVG (Bld) [#/Vol]7.69 10*3/uLNormal4.00-10.60 [facility] CenterComment on above:Performed By: #### [id number] ####[facility] ([facility])[address] [place], [place] [address]AOCKBFJEFQJOZ METABOLIC PANELon 47-64-1707Ilbbmvd [Mass/Vol]4.1 g/dLNormal3.5-5.7UnSt. John of God HospitalComment on above:Performed By: #### [id number] ####[facility] ([facility])[address] [place] [address]AQN [Catalytic activity/Vol]128 U/TNyqy29-202BloizryiejSt. John of God HospitalComment on above:Performed By: #### [id number] ####[facility] ([facility])[address] [place], [place] [address]BQJ [Catalytic activity/Vol]13 U/LNormal7-52UnSt. John of God HospitalComment on above:Performed By: #### [id number] ####[facility] ([facility])[address] [place], [place] [address]Poexo gap [Moles/Vol]13 mmol/L Normal7-20UnSt. John of God HospitalComment on above:Performed By: #### [id number] ####[facility] ([facility])[address] [place], [place] [address]FVE [Catalytic activity/Vol]18 U/TBkcwki21-10JrnnkttvqoSt. John of God Hospital Comment on above:Performed By: #### [id number] ####[facility] ([facility])[address] [place], [place] [address]Uztbqexpw [Mass/Vol]0.4 mg/dLNormal0.3-1.0 [facility] CenterComment on above:Performed By: #### [id number] ####[facility] ([facility])[address] [place], [place] [address]Uuqokpg [Mass/Vol]8.9 mg/dLNormal8.6-10.3UnSt. John of God HospitalComment on above:Performed By: #### [id number] ####[facility] ([facility])[address] [place], [place] [address]Ozcozxcw [Moles/Vol]98 mmol/TIckcsu04-451LuphrfonwaSt. John of God HospitalComment on above:Performed By: #### [id number] ####[facility] ([facility])[address] [place], [place] [address]VT3 [Moles/Vol]27 mmol/NZhpjyt58-07 [facility] CenterComment on above:Performed By: #### [id number] ####[facility] ([facility])[address] [place], [place] [address]Xqxcvfeehx [Mass/Vol]0.98 mg/dLNormal0.60-1.20UnSt. John of God HospitalComment on above:Performed By: #### [id number] ####[facility] ([facility])[address] [place] [address]QSCLJPPVEW FILTRATION RATE ML/MIN/1.73 SQ M.RKBKUYYKW02.3 mL/min/1.73m*2Normal>60.0UnSt. John of God HospitalComment on above: Result Comment: The [facility]???s estimated glomerular filtration rate (eGFR) will [...] anyone group of individuals.Performed By: #### [id number] ####[facility] ([facility])[address] [place] [address]Yhmlpgp [Mass/Vol]151 mg/fNVayb46-969NunccjpnknSt. John of God HospitalComment on above:Performed By: #### [id number] ####[facility] ([facility])[address] [place] [address]Qcajfzhgn [Moles/Vol]3.8 mmol/L Normal3.5-5.1UnSt. John of God HospitalComment on above:Performed By: #### [id number] ####[facility] ([facility])[address] [place] [place] [address] Protein [Mass/Vol]7.0 g/dLNormal6.0-8.3UnSt. John of God Hospital Comment on above:Performed By: #### [id number] ####[facility] ([facility])[address] [place], [place] [address]Ugfpnx [Moles/Vol]134 mmol/KKcc039-047UhowhecxitSt. John of God HospitalComment on above:Performed By: #### [id number] ####[facility] ([facility])[address] [place], [place] [address]Jnef nitrogen [Mass/Vol] 16 mg/dLNormal7-25UnSt. John of God HospitalComment on above:Performed By: #### [id number] ####[facility] ([facility])[address] [place] [address] UREA NITROGEN/CREATININE (MASS RATIO) IN SER/PLAS16.3NormalUniversMemorial Health System Marietta Memorial HospitalComment on above:Performed By: #### [id number] ####[facility] ([facility])[address] [place], [place] [address]Gpsueddzvys/100 WBC Auto (Bld)on 61-71-7932Xgugwqfhpdb/100 WBC (Bld)Automated eosinophil %0.9-7.0[facility] HospitalErythrocyte distribution width Auto (RBC) [Ratio]on 76-09-3014Nteskfodvbx distribution width (RBC) [Ratio]Erythrocyte distribution width [Ratio] by Automated count11.0-15.0[facility] Estimated glomerular filtration rate (GFR) non- Americanon 05-11-2024 GFR/1.73 sq M.predicted among non-blacks MDRD (S/P/Bld) [Vol rate/Area]Estimated glomerular filtration rate (GFR) non- AmericanLow>=60 mL/min/1.73m 2 [facility] Memorial HospitalHematocrit Auto (Bld) [Volume fraction]on 38-00-7653Dzplnlaysi (Bld) [Volume fraction]Hematocrit [Volume Fraction] of Blood by Automated count36.0-48.0[facility] HospitalHemoglobin [Mass/volume] in Bloodon 84-09-2160Zhxsikwydj (Bld) [Mass/Vol]Hemoglobin [Mass/volume] in Blood12.0-16.0[facility] HospitalINR in Platelet poor plasma by Coagulation assayon 68-34-0749TEN Coag (PPP) [Relative time]INR in Platelet poor plasma by Coagulation assayGrand Lake Joint Township District Memorial Hospital Comment on above:DESIRED INR:2.0-3.0 CONDITIONS NOT LISTED BELOW2.5-3.5 FOR PROSTHETIC HEART VALVE REPLACEMENT2.5-3.5 RECURRENT THROMBOSISLaboratory - Chemistry and Chemistry - challengeon 34-57-4713Savmoop [Mass/Vol]9.2 mg/dL 8.5-10.1FSouthwest General Health CenterChloride [Moles/Vol]103 mmol/L98-107 [facility] Memorial HospitalCO2 [Moles/Vol]30.0 mmol/L21.0-32.0[facility] Memorial HospitalCreatinine [Mass/Vol]1.17 mg/dLHigh0.55-1.02[facility] Memorial HospitalGFR/1.73 sq M.predicted MDRD (S/P/Bld) [Vol rate/Area]57 mL/min/{1.73_m2}Low>=60 mL/min/1.73m 2FSouthwest General Health CenterGlucose [Mass/Vol]127 mg/sBMyvl84-065HdiwmvxkcGrand Lake Joint Township District Memorial HospitalPotassium [Moles/Vol]3.7 mmol/L3.5-5.1FLicking Memorial Hospitalodium [Moles/Vol] 139 mmol/Q520-791LwoyunbzrGrand Lake Joint Township District Memorial HospitalUrea nitrogen [Mass/Vol]15.0 mg/dL7.0-18.0[facility] HospitalUrea nitrogen/Creatinine [Mass ratio]12.8 mg/mgGrand Lake Joint Township District Memorial HospitalLaboratory - Coagulationon 07-60-7862zBNO Coag (Bld) [Time]36.6 sCritically low43.5-61.5FSouthwest General Health CenterComment on above:RESULTS CALLED TO SHAYLA ESPINOSA RN @BY Ruby Keith at 1902Laboratory - Hematology and Cell countson 51-04-7452Ydjeaymr granulocytes/100 WBC (Bld)0.3 %0.0-0.5FSouthwest General Health CenterLeukocytes [#/volume] corrected for nucleated erythrocytes in Blood by Automated counon 03-29-1761EGJ corrected for nucl RBC Auto (Bld) [#/Vol]Leukocytes [#/volume] corrected for nucleated erythrocytes in Blood by Automated coun4.0-11.0[facility] HospitalLymphocytes Auto (Bld) [#/Vol]on 77-72-3671Ljidtsnzxfv (Bld) [#/Vol]Lymphocytes [#/volume] in Blood by Automated count1.2-3.8[facility] HospitalLymphocytes/100 WBC Auto (Bld)on 62-30-9160Dppzavunalq/100 WBC (Bld)Lymphocytes/100 leukocytes in Blood by Automated count20.5-60.0[facility] HospitalMAGNESIUMon 46-02-7992Jsaxwebmv [Mass/Vol]2.2 mg/dLNormal1.9-2.7Ohio[facility] Health CenterComment on above:Performed By: #### [id number] #### [facility] (BEAKER) [address] [place], [place] [address]NZJ Auto (RBC) [Entitic mass]on 02-32-1431UQR (RBC) [Entitic mass]MCH [Entitic mass] by Automated count26.7-34.0[facility] HospitalMCHC Auto (RBC) [Mass/Vol]on 72-97-4642VCHI (RBC) [Mass/Vol]MCHC [Mass/volume] by Automated count29.9-35.2FSouthwest General Health CenterMCV Auto (RBC) [Entitic vol]on 69-72-4638IDS (RBC) [Entitic vol]MCV [Entitic volume] by Automated count81.0-99.0[facility] HospitalMonocytes Auto (Bld) [#/Vol]on 97-98-3575Cwmqsfjmt (Bld) [#/Vol]Automated blood monocyte count0.3-0.8 [facility] HospitalMonocytes/100 WBC Auto (Bld)on 05-11-2024 Monocytes/100 WBC (Bld)Automated monocyte %1.7-12.0[facility] HospitalNeutrophils Auto (Bld) [#/Vol]on 05-00-4941Lpxlzjcsray (Bld) [#/Vol] Neutrophils [#/volume] in Blood by Automated count1.4-6.5FSouthwest General Health CenterNeutrophils/100 WBC Auto (Bld)on 73-84-8958Lhabuwlgxot/100 WBC (Bld)Automated neutrophil %43.0-75.0[facility] HospitalNo Panel Informationon 37-27-8337Rhzxlmla I High Fjoephnwvhe1691.8 pg/mLCritically high 4.0-51.3FSouthwest General Health CenterComment on above:RESULTS CALLED TO JOSE CRUZ RN [...] AND CLINICAL INFORMATION.Eosinophils # (Auto)0.4 10 3/uL 0.0-0.7FSouthwest General Health CenterImmature Granulocyte # (Auto)0.02 10 3/uL0.00-0.03[facility] HospitalPHOSPHORUSon 58-59-4307Ipecrazwy [Mass/Vol]3.1 mg/dLNormal2.5-5.0UnSt. John of God HospitalComment on above:Performed By: #### [id number] ####[facility] ([facility]AKER)[address] [place], [place] [address]MGRD GLUCOSE METER UNSOLICITED RESULTSon 08-06-4765Xxfhgjn [Mass/Vol]163 mg/mNHpfl16-073HuvllyljkcSt. John of God HospitalComment on above:Order Comment: Waived Testing in the ED is performed under the ED CLIA certificate #[id number].Result Comment: [id number] By: #### [id number] #### [facility] ([employer]) [address] [place], [place] [address]UUZQGFG-AHBgd 17-45-9656DXW IN PPP BY COAGULATION ASSAY0.99 Normal0.90-1.10UnSt. John of God HospitalComment on above:Result Comment: ACCCP RECOMMENDED INR FOR WARFARIN THERAPY CONDITION INR PROPHYLAXIS OF VENOUS THROMBOSIS 2-3 (HIGH-RISK SURGERY) TREATMENT OF VENOUS THROMBOSIS 2-3 TREATMENT OF PULMONARY EMBOLISM 2-3 PREVENTION OF SYSTEMIC EMBOLISM: 2-3 ACUTE MYOCARDIAL INFARCTION TISSUE HEART VALVES VALVULAR HEART DISEASE ATRIAL FIBRILLATION RECURRENT SYSTEMIC EMBOLISM MECHANICAL HEART VALVE 2.5-3.5 FROM: ORAL ANTICOAGULANTS. MECHANISM OF ACTION, CLINICAL EFFECTIVENESS, AND OPTIMAL THERAPEUTIC RANGE. CHEST 1995;108:231S-246S.Performed By: #### [id number] #### [facility] ([employer]) [address] [place], [place] [address]OLNROTYYWJO TIME (PT) IN PPP BY COAGULATION ASSAY13.1 Seconds Flxbio31.3-14.8UnSt. John of God HospitalComment on above:Performed By: #### [id number] #### [facility] ([employer]) [address] [place], [place] [address]Sgjualae mean volume Auto (Bld) [Entitic vol]on 05-11-2024 Platelet mean volume (Bld) [Entitic vol]Platelet mean volume [Entitic volume] in Blood by Automated count9.5-13.5FSouthwest General Health CenterPlatelets Auto (Bld) [#/Vol]on 57-88-7956Iveiedpjq (Bld) [#/Vol]Platelets [#/volume] in Blood by Automated hcegw042-139RhoxawmhwGrand Lake Joint Township District Memorial HospitalProthrombin time (PT) on 00-44-9615OA Coag (PPP) [Time]Prothrombin time (PT)9.0-11.6FSouthwest General Health CenterRBC Auto (Bld) [#/Vol]on 41-56-8610ZUM (Bld) [#/Vol]Erythrocytes [#/volume] in Blood by Automated count4.20-5.40[facility] Serum or plasma anion gap determinationon 95-82-8359Yieur gap [Moles/Vol]Serum or plasma anion gap determinationGrand Lake Joint Township District Memorial HospitalTROPONIN Ion 26-62-0194Jqwbxktw I.cardiac [Mass/Vol]0.06 ng/mLHigh0.00-0.04Ohio[facility] Health CenterComment on above:Performed By: #### [id number] ####[facility] ([facility]AKER)[address] [place], [place] [address]Mkpiwhsrw Auto (Bld) [#/Vol]on 79-42-2964Ptyjtrqjv (Bld) [#/Vol]Automated basophil count0.0-0.1 [facility] HospitalBasophils/100 WBC Auto (Bld)on 05-10-2024 Basophils/100 WBC (Bld)Automated basophil %0.2-2.0[facility] HospitalEosinophils/100 WBC Auto (Bld)on 12-60-9603Vsnbuaitlwp/100 WBC (Bld) Automated eosinophil %0.9-7.0[facility] HospitalErythrocyte distribution width Auto (RBC) [Ratio]on 60-91-6024Hstxxuglymc distribution width (RBC) [Ratio]Erythrocyte distribution width [Ratio] by Automated count11.0-15.0 [facility] HospitalEstimated glomerular filtration rate (GFR) non- Americanon 31-90-1827EZB/1.73 sq M.predicted among non-blacks MDRD (S/P/Bld) [Vol rate/Area]Estimated glomerular filtration rate (GFR) non- AmericanLow>=60 mL/min/1.73m 2FSouthwest General Health CenterGlobulin Calc (S) [Mass/Vol]on 28-32-4433Zsyrftth (S) [Mass/Vol]Serum globulin measurement by calculation (mass/volume)[facility] HospitalHematocrit Auto (Bld) [Volume fraction]on 22-58-1481Qhgfkcjfdw (Bld) [Volume fraction]Hematocrit [Volume Fraction] of Blood by Automated count36.0-48.0[facility] HospitalHemoglobin [Mass/volume] in Bloodon 28-70-2908Myegvfnrev (Bld) [Mass/Vol] Hemoglobin [Mass/volume] in Blood12.0-16.0[facility] Laboratory - Chemistry and Chemistry - challengeon 02-19-6116Usxpdem [Mass/Vol] 3.5 g/dL3.4-5.0[facility] HospitalALP [Catalytic activity/Vol]144 U/CDagx98-861FmzjpwqboGrand Lake Joint Township District Memorial HospitalALT [Catalytic activity/Vol]21 U/L 14-59[facility] HospitalAST [Catalytic activity/Vol]22 U/L15-37 [facility] HospitalBilirubin [Mass/Vol]0.5 mg/dL0.2-1.0[facility] HospitalCalcium [Mass/Vol]9.3 mg/dL8.5-10.1FSouthwest General Health CenterChloride [Moles/Vol]102 mmol/H77-169GygwlvwvrGrand Lake Joint Township District Memorial HospitalCO2 [Moles/Vol]29.0 mmol/L21.0-32.0[facility] Creatinine [Mass/Vol]1.17 mg/dLHigh0.55-1.02[facility] GFR/1.73 sq M.predicted MDRD (S/P/Bld) [Vol rate/Area]57 mL/min/{1.73_m2}Low>=60 mL/min/1.73m 2FSouthwest General Health CenterGlucose [Mass/Vol]142 mg/dLHigh 74-106[facility] HospitalNatriuretic peptide B (Bld) [Mass/Vol] 1140.0 pg/mLHigh<=900.0[facility] HospitalPotassium [Moles/Vol]4.4 mmol/L3.5-5.1FSouthwest General Health CenterProtein [Mass/Vol]7.4 g/dL6.4-8.2 [facility] Troyodium [Moles/Vol]138 mmol/A965-075WtxwjmatlGrand Lake Joint Township District Memorial HospitalUrea nitrogen [Mass/Vol]14.0 mg/dL7.0-18.0[facility] HospitalUrea nitrogen/Creatinine [Mass ratio]12.0 mg/mgGrand Lake Joint Township District Memorial HospitalLaboratory - Hematology and Cell countson 05-10-2024 Immature granulocytes/100 WBC (Bld)0.4 %0.0-0.5FSouthwest General Health Center Leukocytes [#/volume] corrected for nucleated erythrocytes in Blood by Automated counon 59-97-3917AQC corrected for nucl RBC Auto (Bld) [#/Vol]Leukocytes [#/volume] corrected for nucleated erythrocytes in Blood by Automated coun 4.0-11.0[facility] HospitalLymphocytes Auto (Bld) [#/Vol]on 47-54-7296Imagbuugfhf (Bld) [#/Vol]Lymphocytes [#/volume] in Blood by Automated count1.2-3.8[facility] HospitalLymphocytes/100 WBC Auto (Bld)on 63-59-3935Phexmmzrwla/100 WBC (Bld)Lymphocytes/100 leukocytes in Blood by Automated mvcamVti64.5-60.0[facility] HospitalH Auto (RBC) [Entitic mass]on 87-59-8766BRW (RBC) [Entitic mass]MCH [Entitic mass] by Automated count26.7-34.0[facility] HospitalHC Auto (RBC) [Mass/Vol]on 79-74-5769XCYY (RBC) [Mass/Vol]MCHC [Mass/volume] by Automated count29.9-35.2FSouthwest General Health CenterMCV Auto (RBC) [Entitic vol]on 62-87-7716JXV (RBC) [Entitic vol]MCV [Entitic volume] by Automated count 81.0-99.0[facility] HospitalMonocytes Auto (Bld) [#/Vol]on 78-44-0215Ffwlmbcil (Bld) [#/Vol]Automated blood monocyte count0.3-0.8[facility] HospitalMonocytes/100 WBC Auto (Bld)on 81-89-9699Dsvzwdher/100 WBC (Bld)Automated monocyte %1.7-12.0[facility] Neutrophils Auto (Bld) [#/Vol]on 50-97-7123Kpsefbxdsbe (Bld) [#/Vol]Neutrophils [#/volume] in Blood by Automated count1.4-6.5FSouthwest General Health Center Neutrophils/100 WBC Auto (Bld)on 46-02-2583Xdejjksttkd/100 WBC (Bld)Automated neutrophil %43.0-75.0[facility] HospitalNo Panel Informationon 05-94-3909[place] I High Rgjmxqdslkp912.2 pg/mLCritically high4.0-51.3FSouthwest General Health CenterComment on above:RESULTS CALLED TO ESTHER KENDRICK RN [...] DIAGNOSTIC AND CLINICAL INFORMATION.Eosinophils # (Auto)0.4 10 3/uL0.0-0.7FSouthwest General Health CenterImmature Granulocyte # (Auto) 0.03 10 3/uL0.00-0.03[facility] HospitalPlatelet mean volume Auto (Bld) [Entitic vol]on 63-31-1425Dvfvudxq mean volume (Bld) [Entitic vol]Platelet mean volume [Entitic volume] in Blood by Automated count9.5-13.5FSouthwest General Health CenterPlatelets Auto (Bld) [#/Vol]on 64-29-1854Sjvyzflht (Bld) [#/Vol]Platelets [#/volume] in Blood by Automated iudum952-339EammuycewGrand Lake Joint Township District Memorial HospitalRBC Auto (Bld) [#/Vol]on 07-50-6333WJX (Bld) [#/Vol]Erythrocytes [#/volume] in Blood by Automated count4.20-5.40[facility] Serum or plasma albumin/globulin mass ratioon 44-95-7969Kbbvtmn/Globulin [Mass ratio]Serum or plasma albumin/globulin mass ratioKettering Health Troyerum or plasma anion gap determinationon 55-09-6109Znnnf gap [Moles/Vol] Serum or plasma anion gap determinationGrand Lake Joint Township District Memorial Hospital29on 59-36-843851Dhmdgkca created 02/19/24941 by Mario Bermudez MD Delete clinical noteNormalUniversity of [facility]29Addendum created 02/19/2441 by Mario Bermudez MD Delete clinical noteNormalUniversity of No Medical CenterOffice Visiton 16-29-4501Gyoxhn-up [id number] Ruma Carlton 1960 F Date Provider Department [...] Alive Nephew Alive Neg Hx Level of Service:27674 [place] OFFICE/OUTPATIENT ESTABLISHED LOW MDM 20 [facility] OhioNatriuretic peptide B [Mass/Vol]Ordered By: Gale Navarro on 84-02-0077Kqoycxyzuqy peptide B (Bld) [Mass/Vol]648.0 pg/mLHigh 5-100[facility] HospitalTroponin I.cardiac [Mass/volume] in Serum or Plasma by Detection limit <= 0.01 ng/Ordered By: Gale Navarro on 12-04-2023 Troponin I.cardiac DL <= 0.01 ng/mL [Mass/Vol]36.1 pg/mLHigh0.0-15.0[facility] HospitalAlanine aminotransferase [Enzymatic activity/volume] in Serum or PlasmaOrdered By: Barby Chen on 93-82-1195QCX [Catalytic activity/Vol]15 U/L7-52[facility] HospitalAlbumin [Mass/volume] in Serum or Plasma by Bromocresol green (BCG) dye binding methoOrdered By: Barby Chen on 04-85-3207Tpnjkmw BCG dye [Mass/Vol]4.3 g/dL3.5-5.7FSouthwest General Health CenterAlkaline phosphatase [Enzymatic activity/volume] in Serum or PlasmaOrdered By: Barby Chen on 65-19-7404NJU [Catalytic activity/Vol]87 U/D70-793HlwgbxumjGrand Lake Joint Township District Memorial HospitalAspartate aminotransferase [Enzymatic activity/volume] in Serum or PlasmaOrdered By: Barby Chen on 96-86-5090FUB [Catalytic activity/Vol]20 U/G22-04QhliuzdzfGrand Lake Joint Township District Memorial HospitalBasophils Auto (Bld) [#/Vol]Ordered By: Barby Chen on 74-51-5487Ziitlorfj (Bld) [#/Vol]0.1 10*3/uL0.0-0.2FSouthwest General Health CenterBasophils/100 WBC Auto (Bld)Ordered By: Barby Chen on 06-05-0190Afyxtolsk/100 WBC (Bld)0.9 %. [facility] HospitalBilirubin.total [Mass/volume] in Serum or PlasmaOrdered By: Barby Chen on 93-99-1377Onmhuleuy [Mass/Vol]0.6 mg/dL 0.3-1.0[facility] HospitalCalcium [Mass/volume] in Serum or Plasma Ordered By: Barby Chen on 88-60-8332Oxbnmru [Mass/Vol]9.5 mg/dL8.6-10.3 [facility] HospitalCarbon dioxide, total [Moles/volume] in Serum or PlasmaOrdered By: Barby Chen on 54-33-7124EL4 [Moles/Vol]27.8 mmol/L 21.0-31.0[facility] HospitalChloride [Moles/volume] in Serum or PlasmaOrdered By: Barby Chen on 61-81-8866Wzznncst [Moles/Vol]98 mmol/L 98-107[facility] HospitalCreatinine [Mass/volume] in Serum or PlasmaOrdered By: Barby Chen on 86-61-4846Wacthzokpm [Mass/Vol]0.88 mg/dL 0.60-1.20[facility] HospitalEosinophils Auto (Bld) [#/Vol]Ordered By: Barby Chen on 57-65-8538Jupbjbejhay (Bld) [#/Vol]0.0 10*3/uL0.0-0.45 [facility] HospitalEosinophils/100 WBC Auto (Bld)Ordered By: Barby Chen on 10-06-3326Knvatbrqrgq/100 WBC (Bld)0.1 %.[facility] HospitalErythrocyte distribution width Auto (RBC) [Ratio]Ordered By: Barby Chen on 89-96-6595Dbzebhfthcj distribution width (RBC) [Ratio]13.3 % 11.9-15.3FSouthwest General Health CenterErythrocyte sedimentation rate by Photometric methodOrdered By: Barby Chen on 38-06-8279CXT Photometric method (Bld) [Velocity]37 mm/hrHigh0-29[facility] HospitalGlobulin Calc (S) [Mass/Vol]Ordered By: Barby Chen on 79-43-4260Wkqemtgk (S) [Mass/Vol]3.0 g/dLGrand Lake Joint Township District Memorial HospitalGlucose [Mass/volume] in Serum or Plasma Ordered By: Barby Chen on 24-87-3318Etqdqdn [Mass/Vol]126 mg/pPShoh15-156 [facility] HospitalComment on above:ADA recommended reference rangeRandom Glucose Reference Range is dependent on time and content of last meal. Glucose of more than 200 mg/dL in a nonstressed, ambulatory subject supports the diagnosisof Diabetes Mellitus.Hematocrit Auto (Bld) [Volume fraction]Ordered By: Barby Chen on 92-02-4075Boqjalsozd (Bld) [Volume fraction]45.3 %34.0-46.4FSouthwest General Health CenterHemoglobin [Mass/volume] in BloodOrdered By: Barby Chen on 26-72-2278Ezqxcvbfwn (Bld) [Mass/Vol]15.7 g/kROdub85.8-15.4FSouthwest General Health CenterLeukocytes [#/volume] corrected for nucleated erythrocytes in Blood by Automated coun Ordered By: Barby Chen on 22-62-5562SIF corrected for nucl RBC Auto (Bld) [#/Vol]7.9 10*3/uL3.8-11.6FSouthwest General Health CenterLymphocytes Auto (Bld) [#/Vol]Ordered By: Barby Chen on 95-66-2958Rbqjvmwrugn (Bld) [#/Vol] 1.2 10*3/uL1.00-4.8[facility] HospitalLymphocytes/100 WBC Auto (Bld)Ordered By: Barby Chen on 75-53-9309Angrtwvzcke/100 WBC (Bld)14.9 %. [facility] Auto (RBC) [Entitic mass]Ordered By: Barby Chen on 08-90-2081WFC (RBC) [Entitic mass]31.6 pg24.7-34.3FSouthwest General Health CenterMCHC Auto (RBC) [Mass/Vol]Ordered By: Barby Chen on 30-59-8641ZPVU (RBC) [Mass/Vol]34.7 g/dL32.0-35.0[facility] HospitalMCV Auto (RBC) [Entitic vol]Ordered By: Barby Chen on 18-44-1382BRY (RBC) [Entitic vol]91.1 fA42-650JgvhnourzGrand Lake Joint Township District Memorial HospitalMonocytes Auto (Bld) [#/Vol]Ordered By: Barby Chen on 78-25-5413Xsggdxtfi (Bld) [#/Vol]0.5 10*3/uL0.0-0.8[facility] HospitalMonocytes/100 WBC Auto (Bld) Ordered By: Barby Chen on 68-51-1924Xrctwdita/100 WBC (Bld)6.3 %.[facility] HospitalNeutrophils Auto (Bld) [#/Vol]Ordered By: Barby Chen on 28-53-3399Zzpmtflyngy (Bld) [#/Vol]6.2 10*3/uL1.8-7.7FSouthwest General Health CenterNeutrophils/100 WBC Auto (Bld)Ordered By: Barby Chen on 33-97-2319Adppwxdcezh/100 WBC (Bld)77.8 %.[facility] HospitalNo Panel InformationOrdered By: Barby Chen on 68-20-6286Divvicgof GFR (CKD-EPI) > 60.0 mL/MinGrand Lake Joint Township District Memorial HospitalPharmacy Creatinine Clearance (ChemN/[facility] HospitalNucleated erythrocytes [Presence] in Blood by Automated countOrdered By: Barby Chen on 99-32-8428Tanjcpgjb RBC Auto Ql (Bld)0.1 /100{WBC}0-0.5FSouthwest General Health CenterPlatelet mean volume Auto (Bld) [Entitic vol]Ordered By: Barby Chen on 95-20-9186Ljgeyrwp mean volume (Bld) [Entitic vol]7.6 fL6.3-10.7FSouthwest General Health Center Platelets Auto (Bld) [#/Vol]Ordered By: Barby Chen on 05-59-4472Ldeyvlrjo (Bld) [#/Vol]301 10*3/aB363-923QnuvhukhpGrand Lake Joint Township District Memorial HospitalPotassium [Moles/volume] in Serum or PlasmaOrdered By: Barby Chen on 12-02-2023 Potassium [Moles/Vol]4.4 mmol/L3.5-5.1FSouthwest General Health CenterProtein [Mass/volume] in Serum or PlasmaOrdered By: Barby Chen on 81-69-4025Uaitvjo [Mass/Vol]7.3 g/dL6.4-8.9[facility] HospitalRBC Auto (Bld) [#/Vol] Ordered By: Barby Chen on 00-58-9777GBO (Bld) [#/Vol]4.97 10*6/uL3.60-5.00 [facility] Troyerum or plasma albumin/globulin mass ratio Ordered By: Barby Chen on 48-46-2001Lqzwkjm/Globulin [Mass ratio]1.4 {ratio} [facility] Troyerum or plasma anion gap determinationOrdered By: Barby Chen on 21-30-1478Jtxuj gap [Moles/Vol]9.6 mmol/L6.0-15.0[facility] Troyodium [Moles/volume] in Serum or PlasmaOrdered By: Barby Chen on 95-05-9735Bzejbb [Moles/Vol]131 mmol/QSta082-215SobuyfozkGrand Lake Joint Township District Memorial HospitalUrea nitrogen [Mass/volume] in Serum or PlasmaOrdered By: Barby Chen on 92-97-8098Iirx nitrogen [Mass/Vol]9 mg/dL7-25[facility] HospitalWBC Auto (Bld) [#/Vol]Ordered By: Barby Chen on 52-10-4609VXS (Bld) [#/Vol]7.9 10*3/uL3.8-11.6FSouthwest General Health CenterAlanine aminotransferase [Enzymatic activity/volume] in Serum or PlasmaOrdered By: Anibal Chaudhary on 58-76-0961HYZ [Catalytic activity/Vol]12 U/L7-52[facility] HospitalAlbumin [Mass/volume] in Serum or Plasma by Bromocresol green (BCG) dye binding methoOrdered By: Anibal Chaudhary on 83-34-9859Xninyyj BCG dye [Mass/Vol]4.2 g/dL3.5-5.7FSouthwest General Health CenterAlkaline phosphatase [Enzymatic activity/volume] in Serum or PlasmaOrdered By: Anibal Chaudhary on 69-73-9711IGG [Catalytic activity/Vol]79 U/K25-602OacdnufvuGrand Lake Joint Township District Memorial HospitalAspartate aminotransferase [Enzymatic activity/volume] in Serum or PlasmaOrdered By: Anibal Chaudhary on 96-85-5191TOD [Catalytic activity/Vol]16 U/L 13-39[facility] HospitalBilirubin.total [Mass/volume] in Serum or PlasmaOrdered By: Anibal Chaudhary on 82-84-2666Wnheuiqww [Mass/Vol]0.5 mg/dL0.3-1.0 [facility] HospitalCalcium [Mass/volume] in Serum or PlasmaOrdered By: Anibal Chaudhary on 50-23-7835Jvxudmj [Mass/Vol]9.1 mg/dL8.6-10.3FSouthwest General Health CenterCarbon dioxide, total [Moles/volume] in Serum or Plasma Ordered By: Anibal Chaudhary on 20-86-7853AR3 [Moles/Vol]26.2 mmol/L21.0-31.0 [facility] HospitalChloride [Moles/volume] in Serum or Plasma Ordered By: Anibal Chaduhary on 37-43-7984Hpizyoqh [Moles/Vol]101 mmol/L98-107 [facility] HospitalCholesterol [Mass/volume] in Serum or Plasma Ordered By: Anibal Chaudhary on 48-33-6103Xitlnbuehbj [Mass/Vol]162 mg/eJ657-202 [facility] HospitalComment on above:Chol less than 200 mg/dl low riskChol 201-239 mg/dl borderline riskChol 240 mg/dl and greater high risk Cholesterol in LDL Calc [Mass/Vol]Ordered By: Anibal Chaudhary on 11-03-2023 Cholesterol in LDL [Mass/Vol]86 mg/dL0-100[facility] Comment on above:LDL ATP III CLASSIFICATIONLDL less than 100 mg/dL OptimalLDL 100-129 mg/dL Near or above hxaleaxCVO960-196 mg/dL Borderline highLDL 160-189 mg/dL HighLDL greater than 189 mg/dL Very highCholesterol in VLDL Calc [Mass/Vol]Ordered By: Anibal Chaudhary on 18-80-6174Bvjwgmmonxt in VLDL [Mass/Vol]20 mg/dLGrand Lake Joint Township District Memorial HospitalCreatinine [Mass/volume] in Serum or PlasmaOrdered By: Anibal Chaudhary on 91-59-0037Oizrjomavy [Mass/Vol]0.94 mg/dL 0.60-1.20[facility] HospitalGlobulin Calc (S) [Mass/Vol]Ordered By: Anibal Chaudhary on 23-09-2411Xfulfzub (S) [Mass/Vol]2.6 g/dLGrand Lake Joint Township District Memorial HospitalGlucose [Mass/volume] in Serum or PlasmaOrdered By: Anibal Chaudhary on 34-54-2853Jhxylfr [Mass/Vol]130 mg/lZVbls37-134NcxadwybjGrand Lake Joint Township District Memorial HospitalComment on above:ADA recommended reference rangeRandom Glucose Reference Range is dependent on time and content of last meal. Glucose of more than 200 mg/dL in a nonstressed, ambulatory subject supports the diagnosisof Diabetes Mellitus.Glucose mean value [Mass/volume] in Blood Estimated from glycated hemoglobinOrdered By: Anibal Chaudhary on 43-58-9398Otmusql glucose Estimated from glycated hemoglobin (Bld) [Mass/Vol]123 mg/dLGrand Lake Joint Township District Memorial Hospital Hemoglobin A1c percentageOrdered By: Anibal Chaudhary on 83-79-1429SqS0i (Bld) [Mass fraction]5.9 %High4.3-5.6FSouthwest General Health CenterComment on above: Increased risk for diabetes: 5.7 - 6.4diabetes: >6.4glycemic control for adults with diabetes: <7.0No Panel InformationOrdered By: Anibal Chaudhary on 11-03-2023 Estimated GFR (CKD-EPI)> 60.0 mL/MinGrand Lake Joint Township District Memorial HospitalPharmacy Creatinine Clearance (ChemN/AFSouthwest General Health CenterPotassium [Moles/volume] in Serum or PlasmaOrdered By: Anibal Chaudhary on 59-44-4973Dgrcdxykd [Moles/Vol]4.5 mmol/L3.5-5.1FSouthwest General Health CenterProtein [Mass/volume] in Serum or PlasmaOrdered By: Anibal Chaudhary on 97-18-0035Qthyume [Mass/Vol]6.8 g/dL6.4-8.9[facility] Troyerum or plasma albumin/globulin mass ratioOrdered By: Anibal Chaudhary on 11-03-2023 Albumin/Globulin [Mass ratio]1.6 {ratio}[facility] Troyerum or plasma anion gap determinationOrdered By: Anibal Chaudhary on 94-01-2053Veqaq gap [Moles/Vol]10.3 mmol/L6.0-15.0[facility] Troyerum or plasma high density lipoprotein (HDL) cholesterol measurementOrdered By: Anibal Chaudhary on 85-78-9555Kchfgjsxcyy in HDL [Mass/Vol]56 mg/mE50-03UtxtyvtzsGrand Lake Joint Township District Memorial HospitalComment on above:HDL CHOL ATP-III CLASSIFICATION Cardiovascular RiskHDL > or equal to 60 mg/dL LOWHDL < 40 mg/dL HIGHSerum or plasma total cholesterol/high density lipoprotein (HDL) cholesterol mass ratOrdered By: Anibal Chaudhary on 03-92-4513Zpenbohlnrp.total/Cholesterol in HDL [Mass ratio]2.9 {ratio}<5.0[facility] Troyodium [Moles/volume] in Serum or PlasmaOrdered By: Anibal Chaudhary on 22-34-2269Mezqkl [Moles/Vol]133 mmol/LLow 136-145[facility] HospitalThyrotropin [Units/volume] in Serum or PlasmaOrdered By: Anibal Chaudhary on 82-93-8876BXW Qn1.79 m[IU]/L0.45-5.33[facility] HospitalThyroxine (T4) free [Mass/volume] in Serum or Plasma Ordered By: Anibal Chaudhary on 93-44-8818Ywbg T4 [Mass/Vol]0.92 ng/dL0.61-1.12 [facility] HospitalTriglyceride [Mass/volume] in Serum or Plasma Ordered By: Anibal Chaudhary on 57-79-9453Rdlnjruwyanh [Mass/Vol]101 mg/dL0-149 [facility] HospitalComment on above:TRIG ATP III CLASSIFICATIONTRIG less than 150 mg/dL NormalTRIG 150-199 mg/dL Borderline highTRIG 200-500 mg/dL High TRIG greater than 500 mg/dL Very highStandard traceable to the Center for Disease Conrtrol and Prevention (CDC) test method. Urea nitrogen [Mass/volume] in Serum or PlasmaOrdered By: Anibal Chaudhary on 39-73-3979Vasu nitrogen [Mass/Vol]20 mg/dL7-25[facility] Basophils Auto (Bld) [#/Vol]on 83-08-4338Qdnwbntkd (Bld) [#/Vol]0.1 10 3/uL 0.0-0.1FSouthwest General Health CenterBasophils/100 WBC Auto (Bld)on 31-45-1472Bumgruqnr/100 WBC (Bld)1.0 %0.2-2.0[facility] Eosinophils/100 WBC Auto (Bld)on 81-32-3866Gpbsvoqutlx/100 WBC (Bld)0.0 %Low 0.9-7.0[facility] HospitalErythrocyte distribution width Auto (RBC) [Ratio]on 73-45-6216Dcgksltiwef distribution width (RBC) [Ratio]12.2 % 11.0-15.0[facility] HospitalEstimated glomerular filtration rate (GFR) non- Americanon 73-46-2613ULN/1.73 sq M.predicted among non-blacks MDRD (S/P/Bld) [Vol rate/Area]mL/min/{1.73_m2}>=60[facility] HospitalGlobulin Calc (S) [Mass/Vol]on 33-28-9121Ugcliqif (S) [Mass/Vol]3.6 g/dL [facility] HospitalHematocrit Auto (Bld) [Volume fraction]on 44-30-1258Nkrbnosdld (Bld) [Volume fraction]38.5 %36.0-48.0[facility] HospitalHemoglobin [Mass/volume] in Bloodon 53-07-6174Nynqjrajfq (Bld) [Mass/Vol]13.3 g/dL12.0-16.0[facility] HospitalLaboratory - Chemistry and Chemistry - challengeon 21-16-1742Zegrqfx [Mass/Vol]3.6 g/dL 3.4-5.0[facility] HospitalALP [Catalytic activity/Vol]84 U/L46-116 [facility] HospitalALT [Catalytic activity/Vol]19 U/L14-59 [facility] HospitalAST [Catalytic activity/Vol]16 U/L15-37 [facility] HospitalBilirubin [Mass/Vol]0.4 mg/dL0.2-1.0[facility] HospitalCalcium [Mass/Vol]8.9 mg/dL8.5-10.1FSouthwest General Health CenterChloride [Moles/Vol]96 mmol/IMbr24-616EioyfxtvsGrand Lake Joint Township District Memorial HospitalCO2 [Moles/Vol]31.7 mmol/L21.0-32.0[facility] Creatinine [Mass/Vol]0.91 mg/dL0.55-1.02[facility] GFR/1.73 sq M.predicted MDRD (S/P/Bld) [Vol rate/Area]mL/min/{1.73_m2}>=60 [facility] HospitalGlucose [Mass/Vol]108 mg/eZMmng19-986NycvkfdrcGrand [facility] District Memorial HospitalPotassium [Moles/Vol]4.2 mmol/L3.5-5.1FSouthwest General Health CenterProtein [Mass/Vol]7.2 g/dL6.4-8.2FSouthwest General Health Center Sodium [Moles/Vol]130 mmol/LLcu186-241KhddgnmmvGrand Lake Joint Township District Memorial HospitalUrea nitrogen [Mass/Vol]15.0 mg/dL7.0-18.0[facility] HospitalUrea nitrogen/Creatinine [Mass ratio]16.5 mg/mgGrand Lake Joint [facility] Hospital Laboratory - Hematology and Cell countson 42-36-7694Zpsgokkl granulocytes/100 WBC (Bld)0.3 %0.0-0.5FSouthwest General Health CenterLeukocytes [#/volume] corrected for nucleated erythrocytes in Blood by Automated counon 50-41-5319TMM corrected for nucl RBC Auto (Bld) [#/Vol]6.3 10 3/uL4.0-11.0[facility] HospitalLymphocytes Auto (Bld) [#/Vol]on 64-81-9871Didieiqxmbb (Bld) [#/Vol]1.4 10 3/uL1.2-3.8[facility] HospitalLymphocytes/100 WBC Auto (Bld)on 73-71-7156Fbjxugkqnbn/100 WBC (Bld)22.4 %20.5-60.0[facility] HospitalH Auto (RBC) [Entitic mass]on 36-38-4001OXH (RBC) [Entitic mass]30.9 pg26.7-34.0[facility] HospitalMCHC Auto (RBC) [Mass/Vol]on 03-64-3429TIIX (RBC) [Mass/Vol]34.5 g/dL29.9-35.2FSouthwest General Health CenterMCV Auto (RBC) [Entitic vol]on 77-66-9139ZJV (RBC) [Entitic vol] 89.5 fL81.0-99.0[facility] HospitalMonocytes Auto (Bld) [#/Vol]on 90-95-0315Ahnveqsks (Bld) [#/Vol]0.4 10 3/uL0.3-0.8[facility] HospitalMonocytes/100 WBC Auto (Bld)on 74-66-0119Ghjczoace/100 WBC (Bld)6.6 % 1.7-12.0[facility] HospitalNeutrophils Auto (Bld) [#/Vol]on 65-71-9752Daibzfmaytc (Bld) [#/Vol]4.4 10 3/uL1.4-6.5FSouthwest General Health CenterNeutrophils/100 WBC Auto (Bld)on 28-65-4402Okrswwnxcyz/100 WBC (Bld)69.7 % 43.0-75.0[facility] HospitalNo Panel Informationon 09-07-2023 Eosinophils # (Auto)0.0 10 3/uL0.0-0.7FSouthwest General Health CenterImmature Granulocyte # (Auto)0.02 10 3/uL0.00-0.03[facility] Platelet mean volume Auto (Bld) [Entitic vol]on 06-40-4773Bnkjqowz mean volume (Bld) [Entitic vol]8.6 fLLow9.5-13.5FSouthwest General Health CenterPlatelets Auto (Bld) [#/Vol]on 29-50-7787Fzhtwjkwd (Bld) [#/Vol]233 10 3/aZ831-925 [facility] HospitalRBC Auto (Bld) [#/Vol]on 93-78-9856CZF (Bld) [#/Vol]4.30 10 6/uL4.20-5.40[facility] Troyerum or plasma albumin/globulin mass ratioon 93-51-7994Pnmzazg/Globulin [Mass ratio]1.0 {ratio} [facility] Troyerum or plasma anion gap determinationon 05-34-5043Fukay gap [Moles/Vol]6.5 mmol/LFSouthwest General Health Center Basophils Auto (Bld) [#/Vol]on 53-99-2561Tmjzgoicl (Bld) [#/Vol]0.1 10 3/uL 0.0-0.1FSouthwest General Health CenterBasophils/100 WBC Auto (Bld)on 21-57-5849Obmqhugqy/100 WBC (Bld)1.3 %0.2-2.0[facility] Eosinophils/100 WBC Auto (Bld)on 08-79-9377Yaatesybesm/100 WBC (Bld)0.0 %Low 0.9-7.0[facility] HospitalErythrocyte distribution width Auto (RBC) [Ratio]on 36-93-3610S[place] distribution width (RBC) [Ratio]12.1 % 11.0-15.0[facility] HospitalEstimated glomerular filtration rate (GFR) non- Americanon 27-44-3620CXP/1.73 sq M.predicted among non-blacks MDRD (S/P/Bld) [Vol rate/Area]mL/min/{1.73_m2}>=60[facility] HospitalHematocrit Auto (Bld) [Volume fraction]on 13-69-5044Kalupmrqzu (Bld) [Volume fraction]40.6 %36.0-48.0[facility] HospitalHemoglobin [Mass/volume] in Bloodon 94-20-4466Cucoqhfivx (Bld) [Mass/Vol]13.8 g/dL12.0-16.0 [facility] HospitalLaboratory - Chemistry and Chemistry - challengeon 28-74-6522Lsbyyoz [Mass/Vol]8.8 mg/dL8.5-10.1FSouthwest General Health CenterChloride [Moles/Vol]96 mmol/IOmj79-566TgpdnnooyGrand [facility] District Memorial HospitalCO2 [Moles/Vol]30.6 mmol/L21.0-32.0[facility] Creatinine [Mass/Vol]0.89 mg/dL0.55-1.02[facility] HospitalFree T4 [Mass/Vol]0.87 ng/dL0.76-1.46[facility] HospitalGFR/1.73 sq M.predicted MDRD (S/P/Bld) [Vol rate/Area]mL/min/{1.73_m2}>=60[facility] HospitalGlucose [Mass/Vol]116 mg/pLBffm30-226JtjgykubqGrand Lake Joint Township District Memorial HospitalNatriuretic peptide B (Bld) [Mass/Vol]490.0 pg/mL<=900.0[facility] HospitalPotassium [Moles/Vol]4.4 mmol/L3.5-5.1FLicking Memorial Hospitalodium [Moles/Vol]133 mmol/AVlb177-078RifnxdetjGrand Lake Joint Township District Memorial HospitalTSH Qn4.910 m[IU]/LHigh0.358-3.740[facility] HospitalUrea nitrogen [Mass/Vol]20.0 mg/dLHigh7.0-18.0[facility] HospitalUrea nitrogen/Creatinine [Mass ratio]22.5 mg/mgGrand [facility] Bilirubin Ql (U)NegativeNEGATIVEGrand [facility] District Memorial HospitalGlucose (U) [Mass/Vol]NegativeNEGATIVEGrand [facility] District Memorial HospitalKetones Ql (U) NegativeNEGATIVEGrand [facility] District Memorial HospitalpH (U)7.0 [pH]5.0-9.0[facility] Troypecific gravity (U) [Rel density]1.0101.005-1.025 [facility] HospitalUrobilinogen Qn (U)0.2 {Lenny'U}/dL0.2-1.0 [facility] HospitalLaboratory - Hematology and Cell countson 50-63-7831Sdujvwtr granulocytes/100 WBC (Bld)0.5 %0.0-0.5FSouthwest General Health CenterLaboratory - Specimen informationon 69-10-9156Hlpzdsdhic (U)CLEAR CLEARGrand [facility] District Memorial HospitalColor (U)LT. YELLOWYELLOWGrand [facility] District Memorial HospitalLaboratory - Urinalysison 68-83-4466Lqdzynysi esterase Test strip Ql (U)NegativeNEGATIVEGrand [facility] District Memorial HospitalNitrite Ql (U) NegativeNEGATIVEGrand [facility] District Memorial HospitalProtein Ql (U)NegativeNEG/TRACE [facility] HospitalLeukocytes [#/volume] corrected for nucleated erythrocytes in Blood by Automated counon 29-68-9750WEX corrected for nucl RBC Auto (Bld) [#/Vol]7.5 10 3/uL4.0-11.0[facility] Lymphocytes Auto (Bld) [#/Vol]on 83-12-4746Ybdevgvypqu (Bld) [#/Vol]1.6 10 3/uL 1.2-3.8[facility] HospitalLymphocytes/100 WBC Auto (Bld)on 05-53-5147Qkezeydtrej/100 WBC (Bld)21.2 %20.5-60.0[facility] HospitalMCH Auto (RBC) [Entitic mass]on 78-56-3160QHO (RBC) [Entitic mass]31.0 pg 26.7-34.0[facility] HospitalMCHC Auto (RBC) [Mass/Vol]on 44-76-9303WPJP (RBC) [Mass/Vol]34.0 g/dL29.9-35.2FSouthwest General Health CenterMCV Auto (RBC) [Entitic vol]on 87-16-4980RIP (RBC) [Entitic vol]91.2 fL 81.0-99.0[facility] HospitalMonocytes Auto (Bld) [#/Vol]on 69-07-7462Immtiwobw (Bld) [#/Vol]0.5 10 3/uL0.3-0.8[facility] HospitalMonocytes/100 WBC Auto (Bld)on 59-09-4423Bwitdnaof/100 WBC (Bld)6.4 % 1.7-12.0[facility] HospitalNeutrophils Auto (Bld) [#/Vol]on 30-81-1100Whbneallnsd (Bld) [#/Vol]5.3 10 3/uL1.4-6.5FSouthwest General Health CenterNeutrophils/100 WBC Auto (Bld)on 03-47-1209Zpjquwdxymo/100 WBC (Bld)70.6 % 43.0-75.0[facility] HospitalNo Panel Informationon 08-19-2023 Eosinophils # (Auto)0.0 10 3/uL0.0-0.7FSouthwest General Health CenterImmature Granulocyte # (Auto)0.04 10 3/uLHigh0.00-0.03[facility] Urine Occult BloodTRACE-LNEGATIVEGrand Lake Joint [facility] District Memorial HospitalPlatelet mean volume Auto (Bld) [Entitic vol]on 20-35-2159Ztwympfi mean volume (Bld) [Entitic vol]9.0 fLLow9.5-13.5FSouthwest General Health CenterPlatelets Auto (Bld) [#/Vol]on 72-58-0048Tvnepjomh (Bld) [#/Vol]259 10 3/uC971-700HtvpzqjqgGrand Lake Joint Township District Memorial HospitalRBC Auto (Bld) [#/Vol]on 77-11-8042XTF (Bld) [#/Vol]4.45 10 6/uL 4.20-5.40[facility] Troyerum or plasma anion gap determinationon 02-39-4053Foopp gap [Moles/Vol]10.8 mmol/LFSouthwest General Health CenterAlanine aminotransferase [Enzymatic activity/volume] in Serum or PlasmaOrdered By: Pam Wagoner on 31-53-9494MCB [Catalytic activity/Vol]13 U/L 7-52[facility] HospitalAlbumin [Mass/volume] in Serum or Plasma by Bromocresol green (BCG) dye binding methoOrdered By: Pam Wagoner on 07-08-2023 Albumin BCG dye [Mass/Vol]4.7 g/dL3.5-5.7FSouthwest General Health Center Alkaline phosphatase [Enzymatic activity/volume] in Serum or PlasmaOrdered By: Pam Wagoner on 38-38-6587TET [Catalytic activity/Vol]72 U/E04-257PkmtiyfukGrand Lake Joint Township District Memorial HospitalAspartate aminotransferase [Enzymatic activity/volume] in Serum or PlasmaOrdered By: Pam Wagoner on 13-94-7259ACQ [Catalytic activity/Vol] 18 U/G48-08WjffrjyadGrand Lake Joint Township District Memorial HospitalBasophils Auto (Bld) [#/Vol]Ordered By: Pam Wagoner on 10-21-4895Ovwroepuk (Bld) [#/Vol]0.1 10*3/uL0.0-0.2FSouthwest General Health CenterBasophils/100 WBC Auto (Bld)Ordered By: Pam Wagoner on 72-20-7591Tkcnqejpd/100 WBC (Bld)1.2 %.[facility] Bilirubin.total [Mass/volume] in Serum or PlasmaOrdered By: Pam Wagoner 46-86-0482Apgquyhrq [Mass/Vol]0.3 mg/dL0.3-1.0[facility] Calcium [Mass/volume] in Serum or PlasmaOrdered By: Pam Wagoner 07-08-2023 Calcium [Mass/Vol]9.9 mg/dL8.6-10.3FSouthwest General Health CenterCarbon dioxide, total [Moles/volume] in Serum or PlasmaOrdered By: Pam Wagoner 16-53-4359QG4 [Moles/Vol]31.5 mmol/L21.0-31.0[facility] Chloride [Moles/volume] in Serum or PlasmaOrdered By: Pam Wagoner on 07-08-2023 Chloride [Moles/Vol]100 mmol/Z11-740AogcgwkvaGrand Lake Joint Township District Memorial HospitalCreatinine [Mass/volume] in Serum or PlasmaOrdered By: Pam Wagoner on 25-98-6373Fagddngucw [Mass/Vol]0.96 mg/dL0.60-1.20[facility] HospitalEosinophils Auto (Bld) [#/Vol]Ordered By: Pam Wagoner on 05-71-1672Itxzzvdjtfk (Bld) [#/Vol]0.0 10*3/uL0.0-0.45[facility] HospitalEosinophils/100 WBC Auto (Bld) Ordered By: Pam Wagoner on 96-89-8700Apucwjoxmeo/100 WBC (Bld)0.0 %.[facility] HospitalErythrocyte distribution width Auto (RBC) [Ratio]Ordered By: Pam Wagoner on 02-54-5508Mwdobavdtpy distribution width (RBC) [Ratio]12.9 % 11.9-15.3FSouthwest General Health CenterFree thyroxine indexOrdered By: Pam Wagoner on 59-13-5288Podf T4 index Calc [Mass/Vol]1.81.2-4.9[facility] HospitalGlobulin Calc (S) [Mass/Vol]Ordered By: Pam Wagoner on 13-53-3175Yawfizah (S) [Mass/Vol]2.8 g/dLGrand Lake Joint Township District [facility] Hospital Glucose [Mass/volume] in Serum or PlasmaOrdered By: Pam Wagoner on 07-08-2023 Glucose [Mass/Vol]109 mg/oO21-710PlklnpeufGrand Lake Joint Township District Memorial HospitalComment on above:ADA recommended reference rangeRandom Glucose Reference Range is dependent on time and content of last meal. Glucose of more than 200 mg/dL in a nonstressed, ambulatory subject supports the diagnosisof Diabetes Mellitus. Hematocrit Auto (Bld) [Volume fraction]Ordered By: Pam Wagoner on 07-08-2023 Hematocrit (Bld) [Volume fraction]43.4 %34.0-46.4FSouthwest General Health CenterHemoglobin [Mass/volume] in BloodOrdered By: Pam Wagoner on 07-08-2023 Hemoglobin (Bld) [Mass/Vol]14.7 g/dL11.8-15.4FSouthwest General Health Center Leukocytes [#/volume] corrected for nucleated erythrocytes in Blood by Automated counOrdered By: Pam Wagoner on 80-00-6318XZP corrected for nucl RBC Auto (Bld) [#/Vol]6.7 10*3/uL3.8-11.6FSouthwest General Health CenterLymphocytes Auto (Bld) [#/Vol]Ordered By: Pam Wagoner on 78-90-5009Kpaplqszbem (Bld) [#/Vol]1.7 10*3/uL1.00-4.8[facility] HospitalLymphocytes/100 WBC Auto (Bld) Ordered By: Pam Wagoner on 00-53-6416Fiyevpcqcnc/100 WBC (Bld)25.8 %.[facility] Auto (RBC) [Entitic mass]Ordered By: Pam Wagoner on 61-02-5290FZM (RBC) [Entitic mass]31.2 pg24.7-34.3FSouthwest General Health CenterMCHC Auto (RBC) [Mass/Vol]Ordered By: Pam Wagoner on 01-15-9710GFDX (RBC) [Mass/Vol]34.0 g/dL32.0-35.0[facility] HospitalMCV Auto (RBC) [Entitic vol]Ordered By: Pam Wagoner on 61-60-3106UCK (RBC) [Entitic vol]92.0 fL 80-100[facility] HospitalMonocytes Auto (Bld) [#/Vol]Ordered By: Pam Wagoner on 64-31-5580Tlbwzllrl (Bld) [#/Vol]0.5 10*3/uL0.0-0.8[facility] HospitalMonocytes/100 WBC Auto (Bld)Ordered By: Pam Wagoner on 64-79-1874Fevuycgfc/100 WBC (Bld)7.8 %.[facility] Neutrophils Auto (Bld) [#/Vol]Ordered By: Pam Wagoner on 23-29-9971Jbeuqtnxdsx (Bld) [#/Vol]4.3 10*3/uL1.8-7.7FSouthwest General Health CenterNeutrophils/100 WBC Auto (Bld)Ordered By: Pam Wagoner on 39-02-0291Ebgcpmxcoam/100 WBC (Bld)65.2 %.[facility] HospitalNo Panel InformationOrdered By: Pam Wagoner on 65-40-6748Aoaildhps GFR (CKD-EPI)> 60.0 mL/MinGrand Lake Joint Township District Memorial HospitalFree Thyroxine (T4) Direct7.5 ug/dL4.5-12.0[facility] HospitalPharmacy Creatinine Clearance (ChemN/AFSouthwest General Health Center Nucleated erythrocytes [Presence] in Blood by Automated countOrdered By: Pam Wagoner on 35-02-8457Ikgrmqmgr RBC Auto Ql (Bld)0.1 /100{WBC}0-0.5FSouthwest General Health CenterPlatelet mean volume Auto (Bld) [Entitic vol]Ordered By: Pam Wagoner on 01-12-2843Psluitry mean volume (Bld) [Entitic vol]7.8 fL6.3-10.7 [facility] HospitalPlatelets Auto (Bld) [#/Vol]Ordered By: Pam Wagoner on 57-00-7086Xhupvxzqg (Bld) [#/Vol]278 10*3/tK513-622JdxleynshGrand Lake Joint Township District Memorial HospitalPotassium [Moles/volume] in Serum or PlasmaOrdered By: Pam Wagoner on 65-73-6975Qtrbxdcyf [Moles/Vol]4.7 mmol/L3.5-5.1FSouthwest General Health CenterProtein [Mass/volume] in Serum or PlasmaOrdered By: Pam Wagoner on 89-63-4265Qeqinyh [Mass/Vol]7.5 g/dL6.4-8.9[facility] HospitalRBC Auto (Bld) [#/Vol]Ordered By: Pam Wagoner on 72-28-7363EYQ (Bld) [#/Vol]4.72 10*6/uL3.60-5.00[facility] Troyerum or plasma 25- hydroxycalciferol measurement (mass/volume)Ordered By: Pam Wagoner on 07-08-2023 25-hydroxyvitamin D2 [Mass/Vol]<1.0 ng/mL.[facility] Comment on above:This test was developed and its performance characteristicsdetermined by [employer]. It has not been cleared or approvedby the Food and Drug Administration.Serum or plasma 25-hydroxyvitamin D measurement (mass/volume)Ordered By: Pam Wagoner on 527163-remfqhcuxpdrwc D [Mass/Vol] 6.8 ng/mL.[facility] HospitalComment on above:Reference Range:All Ages: Target levels 30 - 100Serum or plasma albumin/globulin mass ratioOrdered By: Pam Wagoner on 68-99-8720Woqyahc/Globulin [Mass ratio]1.7 {ratio}[facility] Troyerum or plasma anion gap determinationOrdered By: Pam Wagoner on 80-61-3591Czpfo gap [Moles/Vol]9.2 mmol/L6.0-15.0[facility] Troyerum or plasma calcidiol measurement (mass/volume) Ordered By: Pam Wagoner on 759053-jmbqcsondbqnqv D3 [Mass/Vol]6.8 ng/mL. [facility] HospitalComment on above:This test was developed and its performance characteristicsdetermined by [employer]. It has not been cleared or approvedby the Food and Drug Administration.Performed at: [facility] [address] [id number] Director: Santos Chahal MD, Phone: [phone] [Moles/volume] in Serum or PlasmaOrdered By: Pam Wagoner on 23-84-5626Lsbssx [Moles/Vol]136 mmol/I859-209LoxylnaegGrand Lake Joint Township District Memorial HospitalT3 uptakeOrdered By: Pam Wagoner on 07-17-3971S9AP06 %24-39[facility] HospitalTS DL <= 0.005 mIU/L QnOrdered By: Pam Wagoner on 81-85-2055OWJ Qn5.980 m[IU]/L0.450-4.500[facility] Triiodothyronine (T3) [Mass/volume] in Serum or PlasmaOrdered By: Pam Wagoner on 31-73-2122B7 [Mass/Vol]124 ng/wO41-856KaihxfproGrand [facility] District Memorial HospitalComment on above:Performed at: [place] [facility] [address] [id number] Director: Spencer Martinez PhD, Phone: [phone] nitrogen [Mass/volume] in Serum or PlasmaOrdered By: Pam Wagoner on 75-64-8863Xtqs nitrogen [Mass/Vol]26 mg/dL7-25[facility] HospitalWBC Auto (Bld) [#/Vol]Ordered By: Pam Wagoner on 65-88-8561WTF (Bld) [#/Vol]6.7 10*3/uL3.8-11.6 [facility] HospitalBD BONE [...] Ruff MD, V. Transcribed by: [place] Technologist: [facility]Rad[facility], - 05/30/2023 Exam Date/Time: 05/29/2023 [...] MD, V. Transcribed by: [place] Technologist: [facility]URTADO HealthcareBD BONE DENSITY DEXAOrdered By: Radiologist Radiology on 44-59-2283QZNM [employer] Work Phone: bd BONE DENSITY DEXAon 62-75-4992Qgptptllb Study observation (narrative)[facility] HealthcareCalcium [Mass/volume] in Serum or Plasma Ordered By: Froilan Brown on 74-29-5652Eifuvgr [Mass/Vol]8.8 mg/dL8.6-10.3 [facility] HospitalCarbon dioxide, total [Moles/volume] in Serum or PlasmaOrdered By: Froilan Brown on 15-00-4937HK1 [Moles/Vol]25.8 mmol/L 21.0-31.0[facility] HospitalChloride [Moles/volume] in Serum or PlasmaOrdered By: Froilan Brown on 96-71-4675Wljufvgd [Moles/Vol]104 mmol/L 98-107[facility] HospitalCreatinine [Mass/volume] in Serum or PlasmaOrdered By: Froilan Brown on 62-81-3248Lftizjulve [Mass/Vol]0.61 mg/dL 0.60-1.20[facility] HospitalGlucose [Mass/volume] in Serum or PlasmaOrdered By: Froilan Brown on 58-32-0066Ibihxxo [Mass/Vol]113 mg/dL 70-100[facility] HospitalComment on above:ADA recommended reference rangeRandom Glucose Reference Range is dependent on time and content of last meal. Glucose of more than 200 mg/dL in a nonstressed, ambulatory subject supports the diagnosisof Diabetes Mellitus.No Panel InformationOrdered By: Froilan Brown on 65-77-6921Tszuwfpsg GFR (CKD-EPI)> 60.0 mL/MinGrand Lake Joint Township District Memorial HospitalPharmacy Creatinine Clearance (Fszq077.69[facility] HospitalPotassium [Moles/volume] in Serum or PlasmaOrdered By: Froilan Brown on 29-58-9416Gabwwqojj [Moles/Vol]4.3 mmol/L3.5-5.1FLicking Memorial Hospitalerum or plasma anion gap determinationOrdered By: Froilan Brown on 76-01-4244Qlxqz gap [Moles/Vol]9.5 mmol/L6.0-15.0[facility] Troyodium [Moles/volume] in Serum or PlasmaOrdered By: Froilan Brown 35-76-7758Dajrxb [Moles/Vol]135 mmol/P638-250GgimypjnrGrand Lake Joint Township District Memorial HospitalTroponin I.cardiac [Mass/volume] in Serum or Plasma by Detection limit <= 0.01 ng/Ordered By: Froilan Brown on 18-91-2622Jhbgyvcu I.cardiac DL <= 0.01 ng/mL [Mass/Vol]7.7 pg/mL0.0-15.0[facility] HospitalUrea nitrogen [Mass/volume] in Serum or PlasmaOrdered By: Froilan Brown on 84-45-4595Dvbz nitrogen [Mass/Vol]8 mg/dL7-25[facility] HospitalCBC AUTO DIFFon 57-24-2427VMUI #0.1 103/ulNormal0.0-0.1[facility] HospitalComment on above:Performed By: #### CBC #### [facility] [address] [address] [address] Domi SaleemBasophils/100 WBC (Bld)1.2 %Normal0.2-2.0The [facility] Comment on above:Performed By: #### CBC #### [facility] [address] [address] [address] Duron ChangEVerna #0.3 103/ulNormal0.0-0.7The [facility] HospitalComment on above: Performed By: #### CBC #### [facility] [address] [address] [address] Domi Leeosinophils/100 WBC (Bld)3.8 %Normal0.9-7.0The [facility] Comment on above:Performed By: #### CBC #### [facility] [address] [address] [address] Domi Leerythrocyte distribution width (RBC) [Ratio]12.5 %Rciypz46.0-15.0 The [facility] HospitalComment on above:Performed By: #### CBC #### [facility] [address] [address] [address] Domi SaleemHematocrit (Bld) [Volume fraction]42.5 %Ldhypa97.0-48.0The [facility] HospitalComment on above:Performed By: #### CBC #### [facility] [address] [address] [address] Domi SaleemHemoglobin (Bld) [Mass/Vol]14.6 g/sWQbvbux14.0-16.0The [facility] HospitalComment on above:Performed By: #### CBC #### [facility] [address] [address] [address] Domi Olivera #0.04 10e3/ulCritically high0.00-0.03The [facility] on above:Performed By: #### CBC #### [facility] [address] [address] [address] Domi Olivera %0.6 %Critically high0.0-0.5The [facility] HospitalComment on above:Performed By: #### CBC #### [facility] [address] [address] [address] Domi De La O #1.3 103/ulNormal1.2-3.8The [facility] HospitalComment on above:Performed By: #### CBC #### [facility] [address] [place] [address] Dr. Domi Olivareshocytes/100 WBC (Bld)18.5 %Critically low20.5-60.0The [facility] HospitalComment on above:Performed By: #### CBC #### [facility] [address] [address] [address] Domi TsaiUAL DIFF REQNONormalThe [facility] HospitalComment on above: Performed By: #### CBC #### [facility] [address] [address] [address] Domi Curiel (RBC) [Entitic mass]31.1 ncXfnrsv61.7-34.0The [facility] HospitalComment on above:Performed By: #### CBC #### [facility] [address] [place] [address] Dr. Domi Curiel (RBC) [Mass/Vol]34.4 g/nZGlrtzl26.9-35.2The [facility] Centerment on above:Performed By: #### CBC #### [facility] [address] [place] [address] Dr. Domi Curiel (RBC) [Entitic vol]90.4 tQBgrthq05.0-99.0The [facility] HospitalComment on above:Performed By: #### CBC #### [facility] [address] [address] [address] Domi Chavez #0.3 103/ulNormal0.3-0.8The [facility] HospitalComment on above:Performed By: #### CBC #### [facility] [address] [address] [address] Domi Kramerocytes/100 WBC (Bld)4.2 %Normal1.7-12.0The [facility] Comment on above:Performed By: #### CBC #### [facility] [address] [place] [address] Dr. Domi Aquino #5.0 103/ulNormal1.4-6.5The [facility] HospitalComment on above:Performed By: #### CBC #### [facility] [address] [place] [address] Dr. Domi Pazutrophils/100 WBC (Bld)71.7 %Pvtrqm64.0-75.0The [facility] HospitalComment on above:Performed By: #### CBC #### [facility] [address] [place] [address] Dr. Domi Oleary mean volume (Bld) [Entitic vol]8.6 fLCritically low 9.5-13.5The [facility] HospitalComment on above:Performed By: #### CBC #### [facility] [address] [place] [address] Dr. Domi SaleemPLT265 103/jhIhnhcw557-547Szu [facility] HospitalComment on above: Performed By: #### CBC #### [facility] [address] [place] [address] Dr. Domi SaleemRBC4.70 106/ulNormal4.20-5.40The [facility] HospitalComment on above:Performed By: #### CBC #### [facility] [address] [place] [address] Dr. Domi SaleemWBC6.9 103/ulNormal4.0-11.0The [facility] HospitalComment on above: Performed By: #### CBC #### [facility] [address] [place] [address] Dr. Domi SaleemPROF 14(COMP METB)on [id number] [Mass/Vol]3.7 g/dLNormal 3.4-5.0The [facility] HospitalComment on above:Performed By: #### CMP #### [facility] [address] [place] [address] Dr. Domi SaleemAlbumin/Globulin [Mass ratio]0.9 {ratio}NormalThe [facility] HospitalComment on above:Performed By: #### CMP #### [facility] [address] [place] [address] Dr. Domi ChenP [Catalytic activity/Vol]101 U/VEnbixw28-848Wpz [facility] HospitalComment on above:Performed By: #### CMP #### [facility] [address] [place] [address] Dr. Domi ChenT [Catalytic activity/Vol]15 U/GRbczvc13-84Hgp [facility] HospitalComment on above:Performed By: #### CMP #### [facility] [address] [place] [address] Dr. Domi Escalante gap [Moles/Vol]11.9 mmol/LNormalThe [facility] Comment on above:Performed By: #### CMP #### [facility] [address] [place] [address] Dr. Domi SaleemAST [Catalytic activity/Vol]16 U/SElwehf20-23Baq [facility] HospitalComment on above:Performed By: #### CMP #### [facility] [address] [place] [address] Dr. Domi SaleemBilirubin [Mass/Vol]0.3 mg/dLNormal0.2-1.0The [facility] Comment on above:Performed By: #### CMP #### [facility] [address] [place] [address] Dr. Domi SaleemCalcium [Mass/Vol]9.0 mg/dLNormal8.5-10.1The [facility] Comment on above:Performed By: #### CMP #### [facility] [address] [address] [address] Domi SaleemChloride [Moles/Vol]100 mmol/OTmcnvs86-046Avc [facility] Comment on above:Performed By: #### CMP #### [facility] [address] [address] [address] Domi SaleemCO2 [Moles/Vol]29.0 mmol/TYpzthe38.0-32.0The [facility] Comment on above:Performed By: #### CMP #### [facility] [address] [address] [address] Domi SaleemCreatinine [Mass/Vol]0.69 mg/dLNormal0.55-1.02The [facility] HospitalComment on above:Performed By: #### CMP #### [facility] [address] [address] [address] Duron ChangEGFR-AF ARMENIAN>60Normal>=60The [facility] HospitalComment on above:Performed By: #### CMP #### [facility] [address] [address] [address] Domi LeeGFR-NON AF ARMENIAN>60Normal>=60The [facility] HospitalComment on above:Performed By: #### CMP #### [facility] [address] [address] [address] Domi SaleemGlobulin (S) [Mass/Vol]4.2 g/dLNormalThe [facility] HospitalComment on above:Performed By: #### CMP #### [facility] [address] [address] [address] Domi SaleemGlucose [Mass/Vol]124 mg/dLCritically fzew69-319Tsu [facility] HospitalComment on above:Performed By: #### CMP #### [facility] [address] [address] [address] Domi SaleemPotassium [Moles/Vol]4.9 mmol/LNormal3.5-5.1The [facility] Comment on above:Performed By: #### CMP #### [facility] [address] [address] [address] Domi SaleemProtein [Mass/Vol]7.9 g/dLNormal6.4-8.2The [facility] Comment on above:Performed By: #### CMP #### [facility] [address] [address] [address] Domi SaleemSodium [Moles/Vol]136 mmol/XUnsztj466-921Onr [facility] Comment on above:Performed By: #### CMP #### [facility] [address] [address] [address] Domi SaleemUrea nitrogen [Mass/Vol]9.0 mg/dLNormal7.0-18.0The [facility] HospitalComment on above:Performed By: #### CMP #### [facility] [address] [address] [address] Domi Caldwell nitrogen/Creatinine [Mass ratio]13.0 mg/mgNormalThe [facility] HospitalComment on above:Performed By: #### CMP #### [facility] [address] [address] [address] Domi SaleemSED RATE WESTERGRENon [id number] RATE21 mm/hrNormal<=30The [facility] HospitalComment on above:Performed By: #### SEDR #### [facility] [address] [address] [address] Domi SaleemCHEMISTRYOrdered By: SYSTEM SYSTEM on [id number] gap [Moles/Vol]14 mmol/LNormal6 - 16 mEq/LFTMC RemisolCalcium [Mass/Vol]9.2 mg/dL Normal8.9 - 11.1 mg/dLFTMC RemisolChloride [Moles/Vol]92 mmol/ECvq033 - 111 mmol/LFTMC RemisolCO2 [Moles/Vol]28 mmol/RQzpbob50 - 31 mmol/LFTMC Remisol Creatinine [Mass/Vol]0.8 mg/dLNormal0.5 - 1.3 mg/dLFTMC RemisolGFR/1.73 sq M.predicted among blacks MDRD (S/P/Bld) [Vol rate/Area]mL/min/1.73 m8Ryzcks >=59mL/min/1.73 m2[facility] Chem SGFR/1.73 sq M.predicted among non-blacks MDRD (S/P/Bld) [Vol rate/Area]mL/min/1.73 m4Cmhtvs>=59mL/min/1.73 m2[facility] Chem S Glucose [Mass/Vol]108 mg/gMRtxewx32 - 199 mg/dLFTMC RemisolPotassium [Moles/Vol] 4.0 mmol/LNormal3.5 - 5.3 mmol/LFTMC RemisolSodium [Moles/Vol]130 mmol/WLun433 - 145 mmol/LFTMC RemisolUrea nitrogen [Mass/Vol]16 mg/dLNormal5 - 21 mg/dLFTMC RemisolUrea nitrogen/Creatinine [Mass ratio]20 mg/lvIgxujo76 - 20[facility] Remisol HEMATOLOGYOrdered By: Michael Ellsworth on 15-50-4687Gfvhsaiecat distribution width (RBC) [Ratio]13.2 %Trllct11.9 - 14.2 %[facility] HemeAutoSSHematocrit (Bld) [Volume fraction]42.8 %Baviom82.0 - 46.0 %[facility] HemeAutoSSHemoglobin (Bld) [Mass/Vol]15.1 g/hTHmhcln43.0 - 16.0 gm/dLFTMC HemeAutoSSMCH (RBC) [Entitic mass]31.6 rcNlnhgy71.0 - 34.0 pgFTMC HemeAutoSSMCHC (RBC) [Mass/Vol]35.2 g/dL Tsdxwl46.4 - 36.0 gm/dLFTMC HemeAutoSSMCV (RBC) [Entitic vol]89.7 bEHsqyyw53.0 - 100.0 fLFTMC HemeAutoSSPlatelet mean volume (Bld) [Entitic vol]6.8 fLNormal6.4 - 10.8 fLFTMC HemeAutoSSPlatelets (Bld) [#/Vol]275.0 E9/BElcqyv186.0 - 500.0 E9/L [facility] HemeAutoSSRBC (Bld) [#/Vol]4.8 E12/LNormal4.3 - 5.9 E12/LFTMC HemeAutoSSWBC corrected for nucl RBC Auto (Bld) [#/Vol]7.3 E9/LNormal4.0 - 11.0 E9/LFTMC HemeAutoSSCBC AUTO DIFFon [id number] #0.1 103/ulNormal0.0-0.1The [facility] HospitalComment on above:Performed By: #### CBC #### [facility] [address] [address] [address] Domi SaleemBasophils/100 WBC (Bld)0.9 %Normal0.2-2.0[facility] Comment on above:Performed By: #### CBC #### [facility] [address] [place] [address] Dr. Domi Romero #0.2 103/ulNormal0.0-0.7The [facility] HospitalComment on above: Performed By: #### CBC #### [facility] [address] [place] [address] Dr. Domi Leeosinophils/100 WBC (Bld)2.4 %Normal0.9-7.0The [facility] Comment on above:Performed By: #### CBC #### [facility] [address] [place] [address] Dr. Domi Leerythrocyte distribution width (RBC) [Ratio]12.6 %Lfngvf75.0-15.0 The [facility] HospitalComment on above:Performed By: #### CBC #### [facility] [address] [place] [address] Dr. Domi SaleemHematocrit (Bld) [Volume fraction]44.4 %Spyhmm91.0-48.0The [facility] HospitalComment on above:Performed By: #### CBC #### [facility] [address] [place] [address] Dr. Domi SaleemHemoglobin (Bld) [Mass/Vol]15.1 g/jKUrwzjq15.0-16.0The [facility] HospitalComment on above:Performed By: #### CBC #### [facility] [address] [address] [address] Domi Olivera #0.04 10e3/ulCritically high0.00-0.03The [facility] Comment on above:Performed By: #### CBC #### [facility] [address] [place] [address] Dr. Domi Olivera %0.5 %Normal0.0-0.5The [facility] HospitalComment on above: Performed By: #### CBC #### [facility] [address] [place] [address] Dr. Domi De La O #1.6 103/ulNormal1.2-3.8The [facility] HospitalComment on above:Performed By: #### CBC #### [facility] [address] [place] [address] Dr. Domi Olivareshocytes/100 WBC (Bld)19.1 %Critically low20.5-60.0The [facility] HospitalComment on above:Performed By: #### CBC #### [facility] [address] [place] [address] Dr. oDmi TsaiUAL DIFF REQNONormalThe [facility] HospitalComment on above: Performed By: #### CBC #### [facility] [address] [place] [address] Dr. Domi Curiel (RBC) [Entitic mass]31.5 fyKssgqm77.7-34.0The [facility] HospitalComment on above:Performed By: #### CBC #### [facility] [address] [place] [address] Dr. Domi Curiel (RBC) [Mass/Vol]34.0 g/jWFxudkx50.9-35.2The [facility] HospitalComment on above:Performed By: #### CBC #### [facility] [address] [place] [address] Dr. Domi Curiel (RBC) [Entitic vol]92.5 nBNomioo84.0-99.0The [facility] HospitalComment on above:Performed By: #### CBC #### [facility] [address] [address] [address] Domi Chavez #0.5 103/ulNormal0.3-0.8The [facility] HospitalComment on above:Performed By: #### CBC #### [facility] [address] [place] [address] Dr. Domi Kramerocytes/100 WBC (Bld)6.1 %Normal1.7-12.0The [facility] Comment on above:Performed By: #### CBC #### [facility] [address] [place] [address] Dr. Domi Aquino #5.8 103/ulNormal1.4-6.5The [facility] HospitalComment on above:Performed By: #### CBC #### [facility] [address] [place] [address] Dr. Domi Pazutrophils/100 WBC (Bld)71.0 %Qjmqjc74.0-75.0The [facility] HospitalComment on above:Performed By: #### CBC #### [facility] [address] [place] [address] Dr. Domi Oleary mean volume (Bld) [Entitic vol]8.7 fLCritically low 9.5-13.5The [facility] HospitalComment on above:Performed By: #### CBC #### [facility] [address] [place] [address] Dr. Domi SaleemPLT246 103/okLacygq991-395Oww [facility] HospitalComment on above: Performed By: #### CBC #### [facility] [address] [place] [address] Dr. Domi SaleemRBC4.80 106/ulNormal4.20-5.40The [facility] Centerment on above:Performed By: #### CBC #### [facility] [address] [place] [address] Dr. Domi SaleemWBC8.2 103/ulNormal4.0-11.0The [facility] HospitalComment on above: Performed By: #### CBC #### [facility] [address] [place] [address] Dr. Domi SaleemGLYCOHEMOGLOBIN A1Con [id number] RECOMMENDATIONSEE BELOWNormal The [facility] HospitalComment on above:Result Comment: ADA RECOMMENDED LIMIT 4.0 - 6.0 ADA THERAPEUTIC TARGET < 7.0 ACTION SUGGESTED > 7.0Performed By: #### A1C #### [facility] [address] [place] [address] Dr. Domi SaleemGlucose [Mass/Vol]117 mg/dLNormalThe [facility] HospitalComment on above:Performed By: #### A1C #### [facility] [address] [place] [address] Dr. Domi SaleemHbA1c (Bld) [Mass fraction]5.7 %Normal4.5-6.2The [facility] HospitalComment on above:Performed By: #### A1C #### [facility] [address] [place] [address] Dr. Domi SaleemPROF 14(COMP METB)on 10-92-6349Mkiuthp [Mass/Vol]4.0 g/dLNormal 3.4-5.0The [facility] HospitalComment on above:Performed By: #### CMP #### [facility] [address] [place] [address] Dr. Domi SaleemAlbumin/Globulin [Mass ratio]1.1 {ratio}NormalThe [facility] HospitalCommunising memorial hospital on above:Performed By: #### CMP #### [facility] [address] [place] [address] Dr. Domi Parekh [Catalytic activity/Vol]91 U/MSlknjd21-154Eky [facility] HospitalComment on above:Performed By: #### CMP #### [facility] [address] [place] [address] Dr. Domi Dow [Catalytic activity/Vol]16 U/HHzbxra94-38Cso [facility] HospitalComment on above:Performed By: #### CMP #### [facility] [address] [place] [address] Dr. Domi Escalante gap [Moles/Vol]10.3 mmol/LNormalSouth[facility] Comment on above:Performed By: #### CMP #### [facility] [address] [address] [address] Domi SaleemAST [Catalytic activity/Vol]24 U/CIolmqd32-24Tlw [facility] HospitalComment on above:Performed By: #### CMP #### [facility] [address] [address] [address] Domi SaleemBilirubin [Mass/Vol]0.5 mg/dLNormal0.2-1.0The [facility] Comment on above:Performed By: #### CMP #### [facility] [address] [place] [address] Dr. Domi SaleemCalcium [Mass/Vol]9.1 mg/dLNormal8.5-10.1[facility] Comment on above:Performed By: #### CMP #### [facility] [address] [place] [address] Dr. Domi SaleemChloride [Moles/Vol]95 mmol/LCritically ndh84-212Hpw [facility] HospitalComment on above:Performed By: #### CMP #### [facility] [address] [place] [address] Dr. Domi SaleemCO2 [Moles/Vol]27.4 mmol/UAmfgbz25.0-32.0[facility] Comment on above:Performed By: #### CMP #### [facility] [address] [place] [address] Dr. Domi SaleemCreatinine [Mass/Vol]0.77 mg/dLNormal0.55-1.02The [facility] HospitalComment on above:Performed By: #### CMP #### [facility] [address] [place] [address] Dr. Domi LeeGFR-AF ARMENIAN>60Normal>=60The [facility] HospitalComment on above:Performed By: #### CMP #### [facility] [address] [place] [address] Dr. Domi LeeGFR-NON AF ARMENIAN>60Normal>=60The [facility] HospitalComment on above:Performed By: #### CMP #### [facility] [address] [address] [address] Domi SaleemGlobulin (S) [Mass/Vol]3.8 g/dLNormalThMercy Memorial HospitalComment on above:Performed By: #### CMP #### [facility] [address] [address] [address] Domi SaleemGlucose [Mass/Vol]141 mg/dLCritically xgti86-824Pjt [facility] HospitalComment on above:Performed By: #### CMP #### [facility] [address] [address] [address] Domi SaleemPotassium [Moles/Vol]4.7 mmol/LNormal3.5-5.1The [facility] Comment on above:Performed By: #### CMP #### [facility] [address] [address] [address] Domi SaleemProtein [Mass/Vol]7.8 g/dLNormal6.4-8.2The [facility] Comment on above:Performed By: #### CMP #### [facility] [address] [address] [address] Domi SaleemSodium [Moles/Vol]128 mmol/LCritically zer371-251Grt [facility] HospitalComment on above:Performed By: #### CMP #### [facility] [address] [address] [address] Domi SaleemUrea nitrogen [Mass/Vol]14.0 mg/dLNormal7.0-18.0The [facility] HospitalComment on above:Performed By: #### CMP #### [facility] [address] [address] [address] Domi SaleemUrea nitrogen/Creatinine [Mass ratio]18.2 mg/mgNormalThe [facility] HospitalComment on above:Performed By: #### CMP #### [facility] [address] [address] [address] Domi Domínguez RATE WESTERGRENon 87-71-8108GNX RATE34 mm/hrCritically high <=30The [facility] HospitalComment on above:Performed By: #### SEDR #### [facility] [address] [place] [address] Dr. Domi Chavez AUTO DIFFon [id number] #0.1 103/ulNormal0.0-0.1The [facility] HospitalComment on above:Performed By: #### CBC #### [facility] [address] [place] [address] Dr. Domi SaleemBasophils/100 WBC (Bld)1.2 %Normal0.2-2.0The [facility] Comment on above:Performed By: #### CBC #### [facility] [address] [place] [address] Dr. Duron ChangEO #0.2 103/ulNormal0.0-0.7The [facility] HospitalComment on above: Performed By: #### CBC #### [facility] [address] [place] [address] Dr. Domi Leeosinophils/100 WBC (Bld)4.0 %Normal0.9-7.0The [facility] Comment on above:Performed By: #### CBC #### [facility] [address] [place] [address] Dr. Domi Leerythrocyte distribution width (RBC) [Ratio]12.8 %Eqzuki35.0-15.0 The [facility] HospitalComment on above:Performed By: #### CBC #### [facility] [address] [place] [address] Dr. Domi SaleemHematocrit (Bld) [Volume fraction]45.2 %Ssxuht36.0-48.0The [facility] HospitalComment on above:Performed By: #### CBC #### [facility] [address] [place] [address] Dr. Domi SaleemHemoglobin (Bld) [Mass/Vol]15.0 g/gPOsowil37.0-16.0The [facility] HospitalComment on above:Performed By: #### CBC #### [facility] [address] [place] [address] Dr. Domi Olivera #0.02 10e3/ulNormal0.00-0.03The [facility] HospitalComment on above:Performed By: #### CBC #### [facility] [address] [place] [address] Dr. Domi Olivera %0.4 %Normal0.0-0.5The [facility] HospitalComment on above: Performed By: #### CBC #### [facility] [address] [place] [address] Dr. Domi De La O #1.1 103/ulCritically low1.2-3.8The [facility] Comment on above:Performed By: #### CBC #### [facility] [address] [place] [address] Dr. Domi Olivareshocytes/100 WBC (Bld)22.8 %Fnojae33.5-60.0The [facility] HospitalComment on above:Performed By: #### CBC #### [facility] [address] [place] [address] Dr. Domi TsaiUAL DIFF REQNONormalThe [facility] HospitalComment on above: Performed By: #### CBC #### [facility] [address] [place] [address] Dr. Domi Curiel (RBC) [Entitic mass]31.4 dbZwfvdy83.7-34.0The [facility] HospitalComment on above:Performed By: #### CBC #### [facility] [address] [place] [address] Dr. Domi Curiel (RBC) [Mass/Vol]33.2 g/qYOberhd87.9-35.2The [facility] HospitalComment on above:Performed By: #### CBC #### [facility] [address] [place] [address] Dr. Domi Curiel (RBC) [Entitic vol]94.8 mHQncdim09.0-99.0The [facility] HospitalComment on above:Performed By: #### CBC #### [facility] [address] [address] [address] Domi Chavez #0.3 103/ulNormal0.3-0.8The [facility] HospitalComment on above:Performed By: #### CBC #### [facility] [address] [address] [address] Domi Kramerocytes/100 WBC (Bld)6.8 %Normal1.7-12.0The [facility] Comment on above:Performed By: #### CBC #### [facility] [address] [place] [address] Dr. Domi Aquino #3.2 103/ulNormal1.4-6.5The [facility] HospitalComment on above:Performed By: #### CBC #### [facility] [address] [place] [address] Dr. Domi Pazutrophils/100 WBC (Bld)64.8 %Tqlkth54.0-75.0The [facility] HospitalComment on above:Performed By: #### CBC #### [facility] [address] [place] [address] Dr. Domi Oleary mean volume (Bld) [Entitic vol]8.9 fLCritically low 9.5-13.5The [facility] HospitalComment on above:Performed By: #### CBC #### [facility] [address] [place] [address] Dr. Domi SaleemPLT222 103/quXfshiz060-155Tat [facility] HospitalComment on above: Performed By: #### CBC #### [facility] [facility] [address] [place] [address] Dr. Domi SaleemRBC4.77 106/ulNormal4.20-5.40The [facility] HospitalComment on above:Performed By: #### CBC #### [facility] [address] [place] [address] Dr. Domi SaleemWBC5.0 103/ulNormal4.0-11.0The [facility] HospitalComment on above: Performed By: #### CBC #### [facility] [address] [place] [address] Dr. Domi SaleemPROF 14(COMP METB)on 41-03-6786Tjrrteu [Mass/Vol]3.6 g/dLNormal 3.4-5.0The [facility] HospitalComment on above:Performed By: #### CMP #### [facility] [address] [place] [address] Dr. Domi SaleemAlbumin/Globulin [Mass ratio]1.0 {ratio}NormalThe [facility] HospitalComment on above:Performed By: #### CMP #### [facility] [address] [place] [address] Dr. Domi ChenP [Catalytic activity/Vol]79 U/ABmmycg86-958Ufs [facility] HospitalComment on above:Performed By: #### CMP #### [facility] [address] [place] [address] Dr. Domi ChenT [Catalytic activity/Vol]19 U/MBsafus64-86Rnu [facility] HospitalComment on above:Performed By: #### CMP #### [facility] [address] [place] [address] Dr. Domi Escalante gap [Moles/Vol]10.0 mmol/LNormalThe [facility] Comment on above:Performed By: #### CMP #### [facility] [address] [place] [address] Dr. Domi SaleemAST [Catalytic activity/Vol]13 U/LCritically nub90-79Bdz [facility] HospitalComment on above:Performed By: #### CMP #### [facility] [address] [place] [address] Dr. Domi SaleemBilirubin [Mass/Vol]0.3 mg/dLNormal0.2-1.0The [facility] Comment on above:Performed By: #### CMP #### [facility] [address] [place] [address] Dr. Domi SaleemCalcium [Mass/Vol]8.4 mg/dLCritically low8.5-10.1The [facility] HospitalComment on above:Performed By: #### CMP #### [facility] [address] [address] [address] Domi SaleemChloride [Moles/Vol]101 mmol/FMsyxln95-513Clu [facility] Comment on above:Performed By: #### CMP #### [facility] [address] [address] [address] Domi SaleemCO2 [Moles/Vol]31.3 mmol/FJqampe65.0-32.0The [facility] Comment on above:Performed By: #### CMP #### [facility] [address] [address] [address] Domi SaleemCreatinine [Mass/Vol]0.75 mg/dLNormal0.55-1.02The [facility] HospitalComment on above:Performed By: #### CMP #### [facility] [address] [address] [address] Duron ChangEGFR-AF ARMENIAN>60Normal>=60The [facility] HospitalComment on above:Performed By: #### CMP #### [facility] [address] [address] [address] Domi LeeGFR-NON AF ARMENIAN>60Normal>=60The [facility] HospitalComment on above:Performed By: #### CMP #### [facility] [address] [address] [address] Domi SaleemGlobulin (S) [Mass/Vol]3.6 g/dLNormalThe [facility] HospitalComment on above:Performed By: #### CMP #### [facility] [address] [address] [address] Domi SaleemGlucose [Mass/Vol]120 mg/dLCritically eqyn76-001Wri [facility] HospitalComment on above:Performed By: #### CMP #### [facility] [address] [address] [address] Domi SaleemPotassium [Moles/Vol]5.3 mmol/LCritically high3.5-5.1The [facility] HospitalComment on above:Performed By: #### CMP #### [facility] [address] [place], [place] [address] Dr. Domi SaleemProtein [Mass/Vol]7.2 g/dLNormal6.1-8.2The [facility] Comment on above:Performed By: #### CMP #### [facility] [address] [place] [address] Dr. Domi SaleemSodium [Moles/Vol]137 mmol/UJkmozu478-218Ifw [facility] Comment on above:Performed By: #### CMP #### [facility] [address] [address] [address] Domi Caldwell nitrogen [Mass/Vol]20.0 mg/dLCritically high7.0-18.0The [facility] HospitalComment on above:Performed By: #### CMP #### [facility] [address] [place] [address] Dr. Domi Caldwell nitrogen/Creatinine [Mass ratio]26.7 mg/mgNormalThe [facility] HospitalComment on above:Performed By: #### CMP #### [facility] [address] [place] [address] Dr. Domi Domínguez RATE WESTERGRENon 92-05-8159HRK RATE13 mm/hrNormal<=30The [facility] HospitalComment on above:Performed By: #### SEDR #### [facility] [address] [place] [address] Dr. Domi JoaquinOVSCarlos [id number] (SP) Office (HEMACL) RUMA CARLTON ([id number]) 1960 F Date Time Provider Department 08/20/18 [...] Gilman MD Referring Provider: CARMELITA SINGH JR [[id number]] Allergies As of Date: 08/20/2018 Noted Allergy [...] (FOR REMOTE [facility] USE) [SQRAGCBC] Order #: [id number] FUTURE COMP METABOLIC PANEL [SQCMP] Order #: [id number] FUTURE PROTEIN ELECTROPHORESIS W/INTERP [SQSEPG] Order #: [id number] FUTURE IMMUNOFIXATION SCREEN, SERUM [SQIFESC] Order #: [id number] FUTURE KAPPA/GERMAIN,FREE,SER [SQKLFRS] Order #: [id number] FUTURE LUPUS ANTICOAG PL [SQLUPUSP] Order #: [id number] FUTURE Disposition: Return in about 1 year [...] Encounter Status:Closed by LEDY GILMAN MD on 08/20/18[facility] CenterNile [id number] chas LeungO ID: [id number] Author: Ledy Gilman Service: ? Author Type: [...] CT + CBC (FOR REMOTE [facility] USE) - COMP METABOLIC PANEL - PROTEIN ELECTROPHORESIS W/INTERP - IMMUNOFIXATION SCREEN, SERUM - KAPPA/GERMAIN,FREE,SER - LUPUS ANTICOAG PL 2. 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 Will check labs and see me in follow up - ABS GRAN CT + CBC (FOR REMOTE [facility] USE) - COMP METABOLIC PANEL - PROTEIN ELECTROPHORESIS W/INTERP - IMMUNOFIXATION SCREEN, SERUM - KAPPA/GERMAIN,FREE,SER - LUPUS ANTICOAG PL Ledy Gilman MDNormalCCommunity Regional Medical Center Vital Signs Date TimeVital SignValuePerforming AdnrtynvmGsnlbudx40-29-3127 15:23-0400Body vehcel213.48 cmAnibal Chaudhary MD Work Phone: [phone])[address]10-01-2025 15:23-0400 Body mass index (BMI) [Ratio]43.7 kg/w0JpednkAnibal Chaudhary MD Work Phone: [phone])[address]48 [address]10-01-2025 15:23-0400 Body vqzfkqkqhex62.9 [degF]Anibal Chaudhary MD Work Phone: 1(092)034-[address] [place], [place] [address]1010-01-2025 15:23-0400 Body .52 kgAnibal Chaudhary MD Work Phone: [phone])[address]248 [address]10-01-2025 15:23-0400 Diastolic blood qyhrphds44 mm[Hg]Anibal Chaudhary MD Work Phone: 1(073)[address]10-01-2025 15:23-0400 Heart rate49 /Aleena Chaudhary MD Work Phone: 1(866)28148 [address]10-01-2025 15:23-0400 Respiratory rate18 /Aleena Chaudhary MD Work Phone: 1(493)[address]48 [address]10-01-2025 15:23-0400 SaO2% (BldA) [Mass fraction]95 %Anibal Chaudhary MD Work Phone: 1(963)[address] [place], [place] 39[address]10-01-2025 15:23-0400 Systolic blood rtfpiskz40 mm[Hg]Anibal Chaudhary MD Work Phone: [phone])[address] [place], [place] 3920409-30-2025 11:13-0400 Body iaeiay029.48 cmAnibal Chaudhary MD Work Phone: 1(977)[address] [place], [place] 3920409-30-2025 11:13-0400 Body mass index (BMI) [Ratio]43.6 kg/t9LxbwzoAnibal Chaudhary MD Work Phone: 1(505)[address] [place], [place] 3920409-30-2025 11:13-0400 Body .12 kgAnibal Chaudhary MD Work Phone: 1(068)[address] [place], [place] 3920409-30-2025 11:13-0400 Diastolic blood atzwfwdd23 mm[Hg]Anibal Chaudhary MD Work Phone: 1(551)[address] [place], [place] 3920409-30-2025 11:13-0400 Heart rate48 /Aleena Chaudhary MD Work Phone: 1(476)[address] [place], [place] 3920409-30-2025 11:13-0400 Respiratory rate14 /Aleena Chaudhary MD Work Phone: 1(743)[address] [place], [place] 3920409-30-2025 11:13-0400 SaO2% (BldA) [Mass fraction]96 %Anibal Chaudhary MD Work Phone: 1(462)[address] [place], [place] 3920409-30-2025 11:13-0400 Systolic blood eluwtvnh18 mm[Hg]Anibal Chaudhary MD Work Phone: 1(129)[address] [place], [place] 3920403-07-2025 11:36-0500 Body .48 cm[facility]07[facility]2025 11:36-0500Body mass index (BMI) [Ratio]46.7 kg/i3TkapollywGrand [facility]03-07-2025 11:36-0500Body .83 kgGrand [facility]03-07-2025 11:36-0500Diastolic blood igqxywsk17 mm[Hg][facility] 05-28-2024 11:36-0500Heart rate77 /[facility] 05-28-2024 11:36-0500Respiratory rate14 /[facility] 05-28-2024 11:36-0777AmI6% (BldA) [Mass fraction]99 %[facility]03-07-2025 11:36-0500Systolic blood edqklbvj972 mm[Hg][facility]10-31-2024 10:09-0400Body .48 cmMD Anibal Chaudhary Work Phone: 1(991)334-[address] [place], [place] [address]0-31-2024 10:09-0400 Body mass index (BMI) [Ratio]47.9 kg/m2MD Anibal Chaudhary Work Phone: [phone]10-31-2024 10:09-0400 Body sabnxq031.95 kgMD Anibal Chaudhary Work Phone: 1(908)262-[address] [place], [place] 267[address]0-31-2024 10:09-0400 Diastolic blood usddzfgr65 mm[Hg]MD Anibal Chaudhary Work Phone: [facility]10-31-2024 10:09-0400 Heart othh087 /minMD Anibal Chaudhary Work Phone: [phone]10-31-2024 10:09-0400 SaO2% (BldA) [Mass fraction]99 %MD Anibal Chaudhary Work Phone: [phone]10-31-2024 10:09-0400 Systolic blood svbcihsk923 mm[Hg]MD Anibal Chaudhary Work Phone: 1(337)045-54[facility]08-05-2024 13:42-0400 Body .48 cmGrand [facility]08-05-2024 13:42-0400Body mass index (BMI) [Ratio]49.1 kg/l2OjzvyxjbdGrand [facility]08-05-2024 13:42-0400Body vsexso621.01 kgGrand [facility]08-05-2024 13:42-0400Diastolic blood mzlutmyt29 mm[Hg][facility] 10-27-2023 13:42-0400Heart rate91 /minGrand [facility] Joint [facility] District [facility] Hospital 10-27-2023 13:42-0400Systolic blood ptzparns420 mm[Hg][facility]05-28-2024 10:39-0400Body wipewa664.48 cmMD Anibal Chaudhary Work Phone: [phone]05-28-2024 10:39-0400 Body mass index (BMI) [Ratio]48.4 kg/m2MD Anibal Chaudhary Work Phone: [phone])[address]05-28-2024 10:39-0400 Body amjjfg466.2 kgMD Anibal Chaudhary Work Phone: 1(850)239-[address] [place], [place] 2671005-28-2024 10:39-0400 Diastolic blood egbopzrg03 mm[Hg]MD Anibal Chaudhary Work Phone: [phone])368-71[facility]05-28-2024 10:39-0400 Heart rate73 /minMD Anibal Chaudhary Work Phone: 1(887)28848 [address]05-28-2024 10:39-0400 SaO2% (BldA) [Mass fraction]98 %MD Anibal Chaudhary Work Phone: 1(051)125-39[facility]05-28-2024 10:39-0400 Systolic blood yhbqlaef511 mm[Hg]MD Anibal Chaudhary Work Phone: 1(506)106-95[facility]02-15-2024 14:56-0500 Body .48 cmMD Anibal Chaudhary Work Phone: [phone]02-15-2024 14:56-0500 Body mass index (BMI) [Ratio]42.6 kg/m2MD Anibal Chaudhary Work Phone: [phone]02-15-2024 14:56-0500 Body wguriv561.74 kgMD Anibal Chaudhary Work Phone: [facility]02-15-2024 14:56-0500 Diastolic blood saamwtgx44 mm[Hg]MD Anibal Chaudhary Work Phone: [facility]02-15-2024 14:56-0500 Heart rate85 /minMD Anibal Chaudhary Work Phone: [facility]02-15-2024 14:56-0500 Systolic blood mm[Hg]MD Anibal Chaudhary Work Phone: [facility]10-06-2023 14:45-0400 Body irdikl398.48 cmAnibal Chaudhary Other [employer] Other [id number] 14:45-0400Body mass index (BMI) [Ratio] 38.59 kg/x0FhbmqmAnibal Chaudhary Other [employer] Other 10-06-2023 14:45-0400Body xoiywf48.71 kgAnibal Chaudhary Other [employer] Other 10-06-2023 14:45-0400Diastolic blood enwxbxnf96 mm[Hg] Anibal Chaudhary Other [employer] Other 10-06-2023 14:45-7557UvP0% (BldA) [Mass fraction]99 % Anibal Chaudhary Other [employer] Other 10-06-2023 14:45-0400Systolic blood divixjkj525 mm[Hg] Anibal Chaudhary Other [employer] Other 10-03-2023 08:00-0400Body aqzewbpittl72.2 [degF]MD Anibal Chaudhary Work Phone: [facility]10-03-2023 08:00-0400 Diastolic blood ivfkdaev07 mm[Hg]MD Anibal Chaudhary Work Phone: [facility]10-03-2023 08:00-0400 Heart rate93 /minMD Anibal Chaudhary Work Phone: [phone]10-03-2023 08:00-0400 Respiratory rate18 /minMD Anibal Chaudhary Work Phone: 1(984)395-[address] [place], [place] 267[address]0-03-2023 08:00-0400 SaO2% (BldA) [Mass fraction]99 %MD Anibal Chaudhary Work Phone: 1(141)189-89[facility]10-03-2023 08:00-0400 Systolic blood dhhywqra051 mm[Hg]MD Anibal Chaudhary Work Phone: 1(316)853-03[facility]10-03-2023 02:42-0400 Body burjqe767.48 cmMD Anibal Chaudhary Work Phone: 1([phone]10-03-2023 02:42-0400 Body xfipiw87.4 kgMD Anibal Chaudhary Work Phone: [phone])[address]08-25-2023 13:00-0400 Body .48 cmAnibal Chaudhary Other [employer] Other 08-25-2023 13:00-0400Body mass index (BMI) [Ratio] 39.69 kg/v8PzmdsdAnibal Chaudhary Other [employer] Other 08-25-2023 13:00-0400Body cvsisc53.43 kgAnibal Chaudhary Other [employer] Other 08-25-2023 13:00-0400Diastolic blood uiikfsdj74 mm[Hg] Anibal Chaudhary Other [facility] Other 08-25-2023 13:00-0400Systolic blood lurscmaq964 mm[Hg] Anibal Chaudhary Other [employer] Other 06-22-2023 11:30-0400Body fijfex727.48 cmGabriellebabita Chaudhary Other [employer] Other 06-22-2023 11:30-0400Body mass index (BMI) [Ratio] 39.14 kg/f1Owwnbv Braun Other [employer] Other 06-22-2023 11:30-0400Body wtbtxo73.07 kgAnibal Chaparro Other [employer] Other 06-22-2023 11:30-0400Diastolic blood mm[Hg] Anibal Chaudhary Other [employer] Other 06-22-2023 11:30-0400Systolic blood idoyvkgh213 mm[Hg] Anibal Chaudhary Other [employer] Other 02-06-2023 09:45-0500Body vonlqq795.48 cmGabriellebabita Chaudhary Other [employer] Other 02-06-2023 09:45-0500Body mass index (BMI) [Ratio] 47.55 kg/z2MiprujAnibal Chaudhary Other [employer] Other 02-06-2023 09:45-0500Body .94 kgGabriellebabita Chaudhary Other [employer] Other 02-06-2023 09:45-0500Diastolic blood tndynles86 mm[Hg] Anibal Chaudhary Other [employer] Other 02-06-2023 09:45-0265YiS9% (BldA) [Mass fraction]97 % Anibal Chaudhary Other [employer] Other 02-06-2023 09:45-0500Systolic blood plhlorog849 mm[Hg] Anibal Chaparro Other [facility] [employer] Other 04-16-2021 07:58-0400Body .02 cmGabriellebabita Chaparro Work Phone: [phone] 07:58-0400 Body ggtffy84.06 kgAnibal Chaudhary Work Phone: [facility] Encounters Encounter DateEncounter TypeCare ProviderFacilityStart: 59-12-7652fyqxylbmccZNPJChildren's Hospital of Columbustart: 01-27-2025 End: 92-00-0213qrugdlbkqdQZGC NONEFacility:FTNAPA [facility] HOSPITALtart: 01-17-2025 End: 31-56-7606hcepgoxesrICEQChildren's Hospital of Columbustart: 01-11-2025 End: 93-35-6796Nttewzo encounter procedureRamy Santacruz MD-[facility] [place] Work Phone: Start: 01-11-2025 End: 23-17-5972lxdepyyliwFhejly E Braun MD Work Phone: [phone]-Wfosuzybvz Main CampusStart: 01-49-4281Hdyfrme encounter statusAnibal Chaudhary MD Work Phone: [facility] Troytart: 88-05-7051Day- patient / Non-visitEhab [facility] Work Phone: Start: 12-22-2024 End: 65-47-8659lndjibivlhGckrtq E Braun MD Work Phone: [facility] Work Phone: Start: 12-22-2024 End: 55-70-1462Tcneaba encounter procedureRamy Santacruz MD-[facility] Work Phone: Start: 12-21-2024 End: 84-03-8539xuxnowmgytAhsfav E Braun MD Work Phone: [facility] Work Phone: Start: 12-21-2024 End: 14-04-4011Ghkzmeh encounter procedureAnibal Chaudhary MD-[facility] Work Phone: Start: 12-21-2024 End: 70-48-9079Ofumhfd encounter statusAnibal Chaudhary MDKettering Health Troytart: 12-14-2024 End: 74-21-3348suizkhdeozLTONSalem City Hospitaltart: 18-21-1883Ebw-patient / Non-visitMelyudith [facility] hospital Professional [facility] Work Phone: Start: 08-31-2024 End: 16-96-1502qdutplcwntPMESChildren's Hospital of Columbustart: 08-04-2024 End: 18-95-7299ccreyhdzzuHDCE [facility] Hospitaltart: 45-69-3917bxgctgtqriULRCAZNAUHV [facility]: 07-21-2024 End: 81-26-5262dewenmuqlnITCXTYIWCZN [facility] Start: 06-29-2024 End: 19-91-8760xqsexmlnfhTGOBChildren's Hospital of Columbustart: 05-28-2024 End: 11-26-5419eyqmpjsgmtNdfyfmzimCrystal Clinic [facility] Work Phone: Start: 05-28-2024 End: 81-33-7656Ajqlkzr encounter procedureSwati Physician Group-[facility] Work Phone: Start: 05-26-2024 End: 23-92-6615nkoughvdlkEQZTYIFUniversity Hospitals Geauga Medical Centertart: 53-79-1689Cvn-patient / Non-visitWilliamrenault Physician Group-[facility] Work Phone: Start: 05-20-2024 End: 86-41-4078cyvnqegbkeMUBQRRN [facility] Hospitaltart: 30-63-1076Wvp-patient / Non-visitFirelands [facility]ician [facility] Work Phone: Start: 79-95-0258Fsaknsnzof and management of inpatientABHISHEK [facility] Centertart: 15-47-5129Qud- patient / Non-visitFirelands Physician Group-[facility] Work Phone: Start: 05-11-2024 End: 99-47-1622Wgzhbouoxn and management of inpatientOMAR [facility] Northtart: 05-11-2024 End: 75-26-3846Xtx-patient / Non-visitFirrenaults Physician [facility] Work Phone: Start: 48-43-8443Jwj-patient / Non-visitFirelands Physician GroupForks [facility] Professional [facility] Work Phone: Start: 46-37-6213Bkm-patient / Non-visitFirrenaults Physician [facility] Professional [facility] Work Phone: Start: 02-05-2024 End: 04-46-6918lsifetfyhiZJRSSBS [facility] Start: 01-22-2024 End: 37-77-7062zspjxlwbnqMZ Marcia E Braun Work Phone: [facility] Work Phone: Start: 01-22-2024 End: 11-11-4955Bqnehvo encounter procedureMD Anibal Chaudhary Work Phone: [facility] Work Phone: Start: 64-65-8722Jjd-patient / Non-visitMD Anibal Chaudhary Work Phone: [facility] Work Phone: Start: 05-55-5762Rit-patient / Non-visitMD Craven Chaparro Work Phone: [facility] Work Phone: Start: 12-04-2023 End: 70-37-7781cynzugbsrzEL Anibal Chaudhary Work Phone: [facility] Work Phone: Start: 12-04-2023 End: 92-81-8626Sqqrrus encounter procedureMD Anibal Chaudhary Work Phone: [facility] [place] Work Phone: Start: 12-02-2023 End: 71-61-8823Tfxjodri ReferredMD Anibal Chaparro Work Phone: [facility] [place] Work Phone: Start: 12-02-2023 End: 80-20-3129cblaxpaprzHR Anibal Reynoso Chaudhary Work Phone: [facility] Work Phone: Start: 12-02-2023 End: 06-77-1414Ebwhlvs encounter procedureMD Anibal Chaudhary Work Phone: [facility] [place] Work Phone: Start: 11-03-2023 End: 59-64-2397vkjeewufawAO Anibal Angeles Chaudhary Work Phone: [facility] Work Phone: Start: 11-03-2023 End: 94-71-4553Cjyzrhi encounter procedureMD Anibal Chaudhary Work Phone: [facility] [place] Work Phone: Start: 10-27-2023 End: 96-25-6478gpgbxvkgjwRdcyczpnqCrystal Clinic [facility]opedic Center Work Phone: Start: 10-27-2023 End: 91-69-2865Okeinab encounter procedureFirvcu medical center Physician Group-[facility] Work Phone: Start: 94-95-9347Dso-patient / Non-visitFirvcu medical center Physician Group-[facility] Work Phone: Start: 08-19-2023 End: 20-96-0405ygdgekknqhFR Anibal Chaudhary Work Phone: [facility] Work Phone: Start: 08-19-2023 End: 94-38-5187Flkttmu encounter procedureMD Anibal Chaudhary Work Phone: [facility] Phys[facility] GroupMemorial [facility] Work Phone: Start: 46-60-1901Aoi-patient / Non-visit Anibal Chaudhary Work Phone: [facility] Physician GroupForks Community [facility] Professional [facility] Work Phone: Start: 07-08-2023 End: 21-66-3398ajuwowoxwrSY Anibal Chaudhary Work Phone: [facility] Work Phone: Start: 07-08-2023 End: 19-34-2427Damdnzd encounter procedureMD Anibal Chaudhary Work Phone: [facility] Hospitaltart: 06-04-2023 End: 47-73-8978behmsrkgpcRIPVO A POCOSNot AvailableStart: 05-29-2023 End: 84-99-6602PzfsklnotFczbt A Pocos [facility] Start: 05-29-2023 End: 33-55-9992Tgowzjhwy Result EncounterDavid A Pocos DO Work Phone: [facility] External Department UnsolicitedStart: 05-29-2023 End: 15-48-4872Vnlnlkbrf Result EncounterDavid A Pocos DO Work Phone: [facility] External Department UnsolicitedStart: 05-29-2023 End: 69-86-5440Tzlzlvn encounter procedureDavid A Pocos [facility] Start: 05-16-2023 End: 39-34-5947bhjeedvgqfETIJY A POCOSNot AvailableStart: 05-08-2023 End: 69-00-6448qhibjitadxGA Anibal Reynoso Chaparro Work Phone: [facility] Work Phone: Start: 05-08-2023 End: 62-20-2861Ueurxrl encounter procedure Anibal Chaudhary Work Phone: [facility] Work Phone: Start: 02-25-2023 End: 92-10-6650zjmexacpwyMC Anibal Reynoso Chaparro Work Phone: [facility] Work Phone: Start: 02-25-2023 End: 44-72-2814Manieuba ReferredMD Craven Chaudhary Work Phone: [facility] Work Phone: Start: 02-11-2023 End: 48-01-1086qbujmhuhrrAsuaqb Braun Other [employer] Other Start: 09-80-2857Vvmumvatc encounterMarelizabeth Bowen [facility]tart: 12-27-2022 End: 80-36-9596khisbojnqhVcjpih Braun Other [employer] Other Start: 10-78-7550Wiznph outpatient visit 25 minutes Anibal Bowen [facility]woodtart: 12-25-2022 End: 76-26-0240rwrwdnromvFqjdum Braun Other [employer] Other Start: 94-02-5562Utukpxhjm encounterMarcia Andrés [facility] ClinicStart: 12-24-2022 End: 32-18-6147Xjgektnhtm and management of inpatientMD Anibal Chaudhary Work Phone: [facility] Work Phone: Start: 12-24-2022 End: 36-16-5574xvwldkmtugw encounterMD Anibal Chaudhary Work Phone: [facility] Work Phone: Start: 12-20-2022 End: 10-05-7774dbafpxtnptNscnnq Chaparro Other [employer] Other Start: 19-22-4230Xfmnryakm encounterMarcia Andrés [facility] Medical ClinicStart: 11-15-2022 End: 80-27-5076dhrsombzorMyhyye Chaudhary Other [employer] Other Start: 95-20-5957Mysxwq outpatient visit 15 minutes Anibal [facility] ClinicStart: 09-12-2022 End: 04-48-2036jjiezbqxgzFbocis Chaudhary Other [employer] Other Start: 94-99-0314Hikfsx outpatient visit 25 minutes Anibal [facility] ClinicStart: 93-45-0470Dqqidwtpy encounterMarcia Andrés [facility] ClinicStart: 07-[facility]2022 End: 94-26-4267dthyocfqwyUndpen Chaudhary Other noKoffeeware Other Start: 16-77-8443Ssibnxbae encounterMarcia Andrés [facility] ClinicStart: 06-18-2022 End: 90-55-8950xjrdbaytfyErexkzlx Ball Other noKoffeeware Other start: 99-94-3328Elsjtxchy encounterBengemma Mc[facility]on [facility] ClinicStart: 05-30-2022 End: 93-20-5624rhxvjkiivkOqoorp Braun Other noPoacht [employer] Other Start: 32-95-0328Zgijqcmaj encounterMarelizabeth [facility] ClinicStart: 05-27-2022 End: 05-76-8349jdaketfilhYH DOCTOR MISCFacility:B1Fzdzw: 04-29-2022 End: 44-85-2946rknmfutajnXvynjb Braun Other [facility] [employer] Other Start: 61-61-5921Izxftw outpatient visit 15 minutes Anibal ChaudharyRhonda Mckeon [facility] Naplestart: 84-47-2250Hvufjrjmj encounterMarelizabeth ChaudharyRhonda Mckeon [facility] Naplestart: 75-05-9790ridyetcmctZiqczgij:74406Zokle: 02-11-2022 End: 98-57-3830Ayllxnm encounter procedureDavid A Pocos [facility] Start: 01-07-2022 End: 84-31-0172Srs-admission assessmentDavid A Pocos [facility] Start: 30-33-0663Dsoqf health examinationAnibal Chaudhary Other [facility] [employer] Other Start: 35-24-3521Fxkzhjzfm for general adult medical examination without abnormal findingsDR DOCTOR MISCThe Evita HospitalStart: 11-19-2021 End: 46-60-3445bvbcsyvdhcIZAXVV E BRAUNFacility:E7Bqlce: 11-19-2021 End: 39-66-5647Filnltaho for general adult medical examination without abnormal findingsDR DOCTOR MISCFacility:A6Ivwss: 07-18-2021 End: 88-49-9909nrwbrbxpioIL DOCTOR MISCFacility:V0Gells: 07-07-2020 End: 48-26-6934Ecvrkxq encounter procedureAnibal Chaudhary Work Phone: -MRI [place] Procedures DateProcedureProcedure DetailPerforming ClinicianStart: 01-11-2025 Ultrasonography of bilateral kidneysAnibal Chaudhary MD Work Phone: Start: 34-41-6051RQ BONE DENSITY DEXADavid A Pocos DO Work Phone: Start: 07-82-7949ERU of headAnibal Chaudhary Work Phone: Plan of Treatment DateCare ActivityDetailAuthorStart: 01-33-8181Ugwspyo referralRegional Medical Center Work Phone: Start: 34-37-3717EjjhugfecGrand [facility] Start: 48-54-0669NzoinrdkfKettering Health Troytart: 37-81-3535KucnztsjsKettering Health Troytart: 32-54-5583UpwzisrbqKettering Health Troytart: 29-81-3338Ijnllhyf admissionKettering Health Troytart: 12-24-2022 [facility]: 07-29-5271Rolms disorder assessment [facility]25-hydroxyvitamin D2 [Mass/volume] in Serum or PlasmaGrand Lake Joint Township District Memorial Hospital25-hydroxyvitamin D3 [Mass/volume] in Serum or [facility]25-Hydroxyvitamin D3+25- Hydroxyvitamin D2 [Mass/volume] in Serum or PlasmaGrand Lake Joint Township District Memorial HospitalComprehensive metabolic 1999 panel - Serum or [facility] HospitalGlucose measurement estimated from glycated hemoglobinGrand Lake Joint Township District Memorial HospitalMG Breast - bilateral ScreeningGrand [facility] District Memorial HospitalPatient referralLakehealth [facility] Work Phone: Renal function 1999 panel - Serum or [facility] HospitalThyrotropin [Units/volume] in Serum or PlasmaGrand Lake Joint Township District Memorial HospitalThyroxine (T4) free index in Serum or Plasma by calculationGrand Lake [facility] District Memorial HospitalThyroxine measurementGrand Lake [facility] District Memorial HospitalTriiodothyronine (T3) [Mass/volume] in Serum or Plasma [facility] HospitalTriiodothyronine resin uptake (T3RU) in Serum or PlasmaGrand Lake Joint Township District Memorial HospitalUS Kidney - bilateralPalmdale Regional Medical Center Payers DatePayer CategoryPayerPolicy [id number]-[id number] [id number] [id number] Cross Blue ShieldBCBS [id number] 2..1.656864.3.57[id number] 2..1.047317.3.57[id number] 2..1.517421.3.57[id number] 2..1.934402.3.579.2.15081-03-1260Ckyitsl6985728 2..1.048127.3.579.[id number] 2..1.088738.3.579.[id number] 2..840.1.045622.3.579.[id number] 2.16.840.1.826434.3.579.2.222750-99-5313Gccscoj7131566 2..840.1.349779.3.579.2.06[id number] 2..840.1.086656.3.579.2.1464[id number] 1555p21v-181k-5r24-9o5t-87017a4fqde6Yjwypyv Health [id number] [id number]-e24q-[id number]-l9q0-0lbv-[id number] 2.0.1.016276.3.579.2.531 Social History DateTypeDetailFacilityTobacco smoking status NHISUnknown if ever smokedPremier Health CtrStart: 10-13-2930Bav Assigned At [facility] HospitalTobacco smoking statusNo Smoking Status [facility] CenterStart: 37-98-8949Oiw Assigned At [facility] CenterStart: 12-24-2022 End: 34-90-8605Dkfmtak smoking status NHISCurrent some day smokerPremier Health CenterStart: 12-27-2022 End: 32-89-9131Vtfrpgf smoking status NHISSmoker (finding)Premier Health CenterStart: 59-62-8103IzrNmwhwz (finding)[facility]: 05-16-2023 End: 11-56-3809Gkjsjdl smoking status NHISSmokes tobacco daily (finding) FireGuadalupe County Hospitaltart: 49-00-2125Ogroofy smoking status NHISEx- smoker (finding)[facility] HospitalHistory of tobacco useCigarette SmokerLIFEPOINT HOSPITALS HealthcareStart: 65-57-8138Uqlfcxgyl beverage intakeLifetime non- drinker (finding)[facility] HealthcareStart: 32-89-6787Jhoywyg of Social functionNOME HealthcareStart: 39-97-9013Epx assigned at birthNot on fileLIFEPOINT HOSPITALS HealthcareStart: 14-46-3467RckKrrufbHVVY Healthcare Goals DatePatient GoalDesired Activity/State Functional Status UpunPdabnvznleGpvqboOzdjcoqy47-52-6310Ylmjcsamyd statusPatient at Baseline [facility] Work Phone: Mental Status RvaiAyhuzpktgfHxobyuJwtpjneg75-45-3526Gzowuyepe functionCognitive Status Patient at BaselineLakehealth Beachwood Medical Center Work Phone: Clinical Notes 04-29-2022 to 01-11-2025 Note Date & CugmWdfkIumbkyux35-06-3815 Radiology Diagnostic [facility]UC [facility] [place] [address] Ultrasound Report Signed Patient: Ruma Carlton MR#: [id number] : 1960 Acct:[id number] Age/Sex: 64 / F ADM Date: 5 Loc: Room: Type: [facility] Attending Dr: Ramy Santacruz MD Ordering Provider: [...] Mckeon M.D. 01/11/2025 1:54 PM Dictation Location: [place] [address] Tech: Ghazala Durham Transcribed By: CHRISTIAN 01/11/25 1354 Dictated By: Prosper Mckeon DO 01/11/25 1353 Signed By: 01/11/25 1354 [facility]10-08-2025 NoteSara from [facility] Card[facility] made us aware of patient's 5# weight gain over the weekend. Says she took an extra lasix tablet. Currently taking lasix 40mg bid and spironolactone 12.5mg daily. I ordered labs to see if renal function would allow for increase in lasix. Will update Dr. Johnson once lab results are received.[facility]09-30-2025 Evaluation note* Diagnosis Onset Date Resolution Status Admit Date Abnormal TSH acuteSeptember 2024 11:25amCOPD (chronic obstructive pulmonary disease) acuteSeptember 2024 11:25amDyspnea on exertionacuteSept2024 11:25amScreening mammogram for breast canceracuteSept2024 11:25amCAD (coronary artery disease)acuteOctober 2024 3:21pm [facility] Work Phone: 1(431) 992-289509-30-2025 Evaluation note* Diagnosis Onset Date Resolution Status Admit Date Abnormal TSH acuteSept2024 11:25amCOPD (chronic obstructive pulmonary disease) acuteSeptember 2024 [...] with diabetic chronic kidney diseaseacuteOctober 2024 3:21pm [facility] Work Phone: 1(898) 812-477809-23-2025 NoteUT Electrophysiology Consult Note IN Cardiology [facility] Reason for visit: Palpitations 12/14/24 Patient [...] Year: No Utilities: Not At Risk (05/11/2024) [facility] Utilities Threatened with loss of utilities: [...] tablet 1 clopidogrel (Plavix) (more content not included)...[facility]06-10-2025 NoteUT Electrophysiology Consult Note IN Cardiology [facility] Reason for visit: Palpitations 08/31/2024 Patient [...] Year: No Utilities: Not At Risk (05/11/2024) [facility] Utilities Threatened with loss of utilities: [...] evening. levothyroxine (Synthroid, Levoxyl (more content not included)...[facility]05-14-2025 NoteCardiovascular Medicine [facility] SUBJECTIVE Ruma Carlton is a 63 [...] with BMI of 51.02. Patient presented to [facility] from [facility] ER for possible heart catheterization. Patient presented to the [facility] ER on 05/10 with complaints of gradually progressive shortness of breath for 1-2 weeks. Patient endorsed exertional shortness of breath and weight gain of 4 at least 10 pounds. Endorsed bilateral lower extremity edema for the past few weeks. Workup at [facility] demonstrated elevated BNP, elevated troponin and EKG showing NSTEMI. Patient was admitted to the ICU at [facility] overnight and was placed on heparin [...] Unstable angina (CMS/HCC) Coronary artery disease involving jackson coronary artery of jackson heart without angina pectoris Multi-vessel coronary artery [...] Hyperlipidemia Hypertension unknown, ok now Pulmonary embolism ([facility]/HCC) Family History Problem Relation Name Age of Onset Breast cancer Mother Lupe TorresDijohnny 65 Cancer Mother Lupe Amin Depression Mother Lupe Amin Anemia Father Ledy TorresRod Atrial fibrillation Father Ledy TorresRod Diabetes type II Father Ledy TorresRod Hypertension Father Ledy TorresDijohnny Obesity Father Ledy TorresRod Lupus Sister Alcohol abuse Brother Other (POTS) Niece Migraines Daughter Other (POTS) Nephew Autoimmune disease Nephew Sudden (more content not included)...[facility] 06-29-2024 NoteUT Electrophysiology Consult Note IN Cardiology - [facility] Reason for visit: Palpitations HPI: [...] Year: No Utilities: Not At Risk (05/11/2024) [facility] Utilities Threatened with loss of utilities: [...] XR (Effoxor-XR) 150 mg (more content not included)...[facility]03-05-2025 NoteCardiovascular Medicine [facility] SUBJECTIVE Chief Complaint Patient presents with Leg [...] with BMI of 51.02. Patient presented to [facility] from [facility] ER for possible heart catheterization. Patient presented to the [facility] ER on 05/10 with complaints of gradually progressive shortness of breath for 1-2 weeks. Patient endorsed exertional shortness of breath and weight gain of 4 at least 10 pounds. Endorsed bilateral lower extremity edema for the past few weeks. Workup at [facility] demonstrated elevated BNP, elevated troponin and EKG showing NSTEMI. Patient was admitted to the ICU at [facility] overnight and was placed on heparin [...] Unstable angina (CMS/HCC) Coronary artery disease involving jackson coronary artery of jackson heart without angina pectoris Multi-vessel coronary artery [...] Hyperlipidemia Hypertension unknown, ok now Pulmonary embolism ([facility]/HCC) Family History Problem Relation Name Age of Onset Breast cancer Mother Lupe Amin 65 Cancer Mother Lupe Amin Depression Mother Lupe Amin Anemia Father Ledy Amin Atrial fibrillation Father Ledy Amin Diabetes type II Father Ledy TorresDijohnny Hypertension Father Ledy Amin Obesity Father Ledy TorresDijohnny Lupus Sister Alcohol abuse Brother Other (POTS) [...] Other Sulfa (Sulfonamide Antibiotics) (more content not included)...[facility]03-05-2025 NotePatient here for 1 week follow up. [...] sleepiness. All other systems reviewed and are negative.[facility] 05-20-2024 NotePatient here for follow up [facility]. She was started on Entresto and Farxiga. Atorvastatin was stopped and she isn't sure why. C/o SOB and palpitations with exertion. Denies chest pain, lightheadedness/syncope, and bleeding on Xarelto. Review of Systems Cardiovascular: Positive for dyspnea on exertion, leg swelling (L > R) and palpitations (with exertion). Respiratory: Positive for cough. Musculoskeletal: Positive for muscle weakness. All other systems reviewed and are negative.[facility] 05-20-2024 NoteCardiovascular Medicine [facility] SUBJECTIVE Chief Complaint Patient presents with Hospital [...] with BMI of 51.02. Patient presented to [facility] from [facility] ER for possible heart catheterization. Patient presented to the [facility] ER on 05/10 with complaints of gradually progressive shortness of breath for 1-2 weeks. Patient endorsed exertional shortness of breath and weight gain of 4 at least 10 pounds. Endorsed bilateral lower extremity edema for the past few weeks. Workup at [facility] demonstrated elevated BNP, elevated troponin and EKG showing NSTEMI. Patient was admitted to the ICU at [facility] overnight and was placed on heparin [...] Unstable angina (CMS/HCC) Coronary artery disease involving jackson coronary artery of jackson heart without angina pectoris Multi-vessel coronary artery [...] Cancer Mother Lupe Amin Depression Mother Lupe TorresDijohnny Anemia Father Eldy Eloisa Atrial fibrillation Father Ledy Amin Diabetes [...] tablet, Rfl: 3 baltazar (more content not included)...[facility]02-21-2025 NoteHospital Medicine Discharge Summary Final Discharge Diagnosis: [...] with BMI of 51.02. Patient presented to [facility] from [facility] ER on 05/10 for possible heart catheterization. Patient was complaining of gradually progressive shortness of breath for 1-2 weeks. Patient endorsed exertional shortness of breath and weight gain of 4 at least 10 pounds. Also she endorsed bilateral lower extremity edema for the past few weeks. Workup at [facility] demonstrated elevated BNP, elevated troponin and EKG showing NSTEMI. Patient was admitted to the ICU at [facility] overnight and was placed on heparin [...] Center 05/20/2024 10:20 AM Darryl Pedraza CNP [facility] Your medication list START taking these [...] Your Medications These medications were sent to [facility]/pharmacy #[id number] [place] [address] AT [address] [place] [address] dapagliflozin propanediol 10 mg metoprolol succinate XL [...] g/dL 14.6 13.6 - (more content not included)...[facility]02-21-2025 NoteAttempted to delete note. Left incomplete. [facility]02-20-2025 NoteHospital Medicine Daily Progress Note - 05/13/2024 12:47 PM; Room: [address] [place] [address] Admission: 05/11/2024 10:01 PM; Length of stay: 2 days THE HOSPITALIST TEAM PREFERS TO USE Achieve3000 FOR NON-URGENT COMMUNICATION 7AM-7PM. IF I DO NOT RESPOND WITHIN 20 MINUTES OR URGENT MATTERS, PLEASE CALL THROUGH THE PSYCHIATRIC RN. FROM 7PM-7AM, PLEASE PAGE [phone](COVR). Code Status: Full Code Barriers to Discharge: [...] mellitus type II, non insulin dependent (CMS/HCC) Coronary artery disease of jackson artery of jackson heart with stable angina pectoris Status post [...] Lab Units 05/12/24 0558 05/11/24 2303 05/11/24 230 WBC AUTO 10*3/uL 6.18 -- 7.69 HEMOGLOBIN [...] Date TSH 5.49 11/23 (more content not included)...[facility] 05-13-2024 NoteCardiology Progress Note Reason for Consult: HF exacerbation HPI: Ruma Carlton is a 63 y.o. female with a past medical history significant for chronic congestive diastolic heart failure, coronary heart disease status post CABG x 3 on November 2023, hypothyroidism, paroxysmal atrial fibrillation, type 2 diabetes mellitus, hyperlipidemia, nicotine dependence, morbid obesity with BMI of 51.02. Patient presented to [facility] from [facility] ER for possible heart catheterization. Patient presented to the [facility] ER on 05/10 with complaints of gradually progressive shortness of breath for 1-2 weeks. Patient endorsed exertional shortness of breath and weight gain of 4 at least 10 pounds. Endorsed bilateral lower extremity edema for the past few weeks. Workup at [facility] demonstrated elevated BNP, elevated troponin and EKG showing NSTEMI. Patient was admitted to the ICU at [facility] overnight and was placed on heparin [...] -- -- 62 -- 93 % -- 05/12/245 123/70 -- -- -- -- -- -- 05/12/242133 123/70 -- -- 71 22 95 % -- 05/12/242099 121/67 -- -- 56 15 95 % [...] QT Interval 368 QTC CALCULATION(BAZETT) 486 P [place] 70 R-[place] 99 T Wave [place] 83 Impression Sinus tachycardia Possible Right ventricular hypertrophy Nonspecific ST abnormality Abnormal ECG When compared with ECG of 15-DEC-2023 18:05, Sinus rhythm has replaced Junctional rhythm Criteria for Septa (more content not included)...[facility] 05-12-2024 NoteHospital Medicine Daily Progress Note - 05/12/2024 1:47 PM; Room: [address] [place] [address] Admission: 05/11/2024 10:01 PM; Length of stay: 1 days THE HOSPITALIST TEAM PREFERS TO USE Achieve3000 FOR NON-URGENT COMMUNICATION 7AM-7PM. IF I DO NOT RESPOND WITHIN 20 MINUTES OR URGENT MATTERS, PLEASE CALL THROUGH THE PSYCHIATRIC RN. FROM 7PM-7AM, PLEASE PAGE [phone](COVR). Code Status: Full Code Barriers to Discharge: [...] Principal Problem: NSTEMI (non-ST elevated myocardial infarction) ([facility]) Active Problems: Benign essential hypertension Obstructive sleep apnea syndrome Diabetes mellitus type II, non insulin dependent ([facility]) Coronary artery disease of jackson artery of jackson heart with stable angina pectoris Status post four vessel coronary artery bypass Acute on chronic congestive heart failure, unspecified heart failure type ([facility]) Fluid overload Hypothyroidism LOPEZ (dyspnea on [...] of 15-DEC-2023 18:05, S (more content not included)...[facility]02-19-2025 NotePt admitted to hospital for NSTEMI. Pt has echo scheduled. I will wait for current echo results to determine pt's eligibility to participate in cardiac rehab (CR) therapy with HF diagnosis. Pt is eligible with NSTEMI dx pending appropriate referral. I will watch for updates and follow up with pt, if appropriate. ELIZABETH Kate fingerprint clerk Outpatient Coordinator Cardiopulmonary RehabUnSt. John of God Hospital02-19-2025 NoteCase was discussed with the ADEBAYO on 05/11/2024. I agree with the history, physical, assessment, and plan of care. I discussed the findings and therapeutic plan. I agree with the documentation, except for any updates below. Rao Foster MDUnSt. John of God Hospital02-19-2025 NoteCXR negative for any evidence of [...] telemetry N.p.o. at midnight pending potential heart cathUnSt. John of God Hospital02-19-2025 NoteContinue with home medication, levothyroxine 50 mcg tablet p.o. dailyUnSt. John of God Hospital02-19-2025 NotePer primary team to consider addition of CPAP/BiPAP nightlyUnSt. John of God Hospital 05-12-2024 NoteContinue diuresis as above Supplemental O2 at 2-4 L/min via nasal cannula as neededUnSt. John of God Hospital02-19-2025 NoteInsulin lispro per sliding scale before meals and at bedtime. Continue home medication Januvia 100 mg p.o. dailyUniversity of No Medical [id number] NoteHospital Medicine History and Physical 05/12/2024 3:03 AM THE HOSPITALIST TEAM PREFERS TO USE Sensorly CHAT FOR NON-URGENT COMMUNICATION 7AM-7PM. IF I DO NOT RESPOND WITHIN 20 MINUTES OR URGENT MATTERS, PLEASE CALL THROUGH THE PSYCHIATRIC RN. FROM 7PM-7AM, PLEASE PAGE [phone](COVR). Chief Complaint Shortness of breath Worsening X1 week History of Present Illness Ruma Carlton is an 63 y.o. female with past medical history including, but not limited to acute on chronic diastolic congestive heart failure, atherosclerotic heart disease of jackson coronary artery, hypothyroidism, paroxysmal atrial fibrillation, DM 2, HLD, nicotine dependence, and morbid (severe) obesity. Who came from [facility] ER per recommendation of their cardiology department for heart cath. Patient had presented to [facility] ER yesterday with complaint of SOB worsening X1-2 weeks becoming disablingly short of breath earlier today. Patient also reports progressive dyspnea on exertion in addition to weight gain of 10 pounds and bilateral lower extremity edema for the past few weeks. Workup at [facility] showed indications of acute on chronic diastolic heart failure with fluid overload, elevated BN P, elevated and increasing troponin, and ECG showing NSTEMI. Patient was admitted to ICU at [place] overnight and was placed on a heparin [...] patient diuresed with IV Lasix while at [place]. Upon arrival here, patient alert and oriented [...] myocardial infarction) (CMS/HCC) Coronary artery disease of jackson artery of jackson heart with stable angina pectoris Status post four vessel coronary artery bypass Benign essential hypertension CXR negative for any evidence of acute cardiopulmonary process. Mild cardiomegaly noted. BNP elevated 537 Trace to+1 pitting edema BLE No supplemental O2 use, on room air Continue diuresis with Lasix 40 mg p.o. daily ECG showing sinus tachycardia with possible right ventricula (more content not included)...[facility]11-14-2024 NoteUT CARDIOLOGY CLINIC PROGRESS NOTE Reason for [...] 104 QT Interval 420 QTC CALCULATION(BAZETT) 496 R-[place] 96 T Wave [place] 179 Impression Accelerated Junctional rhythm Right axis deviation Incomplete right bundle branch block Septal infarct , age undetermined Marked T wave abnormality, consider anterolateral ischemia Abnormal ECG When (more content not included)...[facility]11-21-2023 Evaluation note* Encounter Date Diagnosis Assessment Notes Treatment Notes Treatment Clinical Notes Jan, Acute pain of right hip (ICD-10 - M25.551) [employer] Other 10-06-2023 Evaluation note* Encounter Date Diagnosis [...] monitor results and followup in 3-4 weeks. [employer] Other 10-04-2023 Evaluation note* Encounter Date Diagnosis Assessment Notes Treatment Notes Treatment Clinical Notes Dec, Depressive disorder (ICD-10 - F3 2.A) [employer] Other 10-03-2023 History and physical note Author Froilan Brown [facility] December 24, 2022 4:06amNote Date/TimeOct2022 3:58[place] [address] Hospitalist H&P Signed Patient: Ruma Carlton MR#: [id number] : 1960 Acct:[id number] Age/Sex: 62 / F Adm Date: 3 Loc: Room: [address] [place] [address] Type: ADM IN Attending Dr: Froilan Brown MD Copies to: MD Anibal Mosquera MD~ HPI DATE OF EXAMINATION: 12/24/22 CHIEF COMPLAINT: fall HISTORY OF PRESENT ILLNESS: The patient is a 62 year old woman with a history of HTN, DVT/PE on xarelto, POTS, NIDDM2, paroxysmal SVT who presented to [place] ED after a fall. Per the patient [...] got up from sleeping to walk to [facility] and fell- pt reports she felt wobbly after taking the flexeril. shedid not lose consciousness or feel dizzy and denies any chest pain or shortness of breath. Pt's right hip pain worsened over the course of Friday so she went to [place] ER for evaluation on arrival there vital [...] feels improved after she got tylenol at [place]- the patient is somewhat irritated at being [...] were negative except as noted in the [facility] Medical History Apnea Arthritis Back [...] thrombosis): (5) Hyponatremia: Plan: mild (126 at [place])- ?medication related Plan - admit to medicine - monitor on telemetry - restart home medications - will check STAT troponin now. if it is markedly increased compared to at [place], would ask cardiology to see pt. if [...] signed by Froilan Brown MD> 12/24/22 0406 [facility] Work Phone: [phone] Evaluation note* Encounter Date Diagnosis Assessment Notes Treatment Notes Treatment Clinical Notes Nov, Depressive disorder (ICD-10 - F3 2.A) [facility] Other 08-25-2023 Evaluation note* Encounter Date Diagnosis Assessment Notes Treatment Notes Treatment Clinical Notes Oct, Depressive disorder (ICD-10 - F3 2.A) Mood improved. 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 She hasn't rec'd the midodrine yet, but will start it and followup w [facility] cardio [facility] [facility] Other 06-22-2023 Evaluation note* Encounter Date Diagnosis [...] the past (years ago). Requests a refill. [facility] Other 02-06-2023 Evaluation note* Encounter Date Diagnosis [...] ENT eval if area does not resolve. [facility] Other 02-06-2023 Evaluation note* Encounter Date Diagnosis Assessment Notes Treatment Notes Treatment Clinical Notes Apr, Lumbar pain (ICD-10 - M54.50) [facility] Other Evaluation + Plan note No data available for this section [facility] Future Appointments Appointment Date:06/04/2023 01:30:00 PM Scheduled Provider: Location:[facility] Appointment Type:DM Diabetes Initial siebel administrator 60 (F [facility] noteNo Assessments Information Available [facility] noteNo InformationN[facility] Other Evaluation note* Diagnosis Onset Date Resolution Status Elevated troponin acuteFallacuteHyponatremiaacutePersonal history of DVT (deep vein thrombosis) acuteRight hip painacute [facility] Work Phone: Evaluation noteNo assessment information available [facility] Work Phone: Evaluation note* Diagnosis Onset Date Resolution Status Anxiety acuteBilateral primary osteoarthritis of kneeacuteDepressionacuteRight hip pain acute [facility] Work Phone: evaluation note* Diagnosis Onset Date Resolution Status Abnormal TSH acuteArthritis, rheumatoidacuteLower extremity edemaacuteUrinary frequencyacute [facility] Work Phone: evaluation note* Diagnosis Onset Date Resolution Status Abnormal TSH acuteArthritis, rheumatoidacuteLower extremity edemaacuteUrinary frequencyacute Abnormal TSHacuteDiabetes mellitus, type 2acuteHypertensionacute [facility] Work Phone: Evaluation note* Diagnosis Onset Date Resolution Status Abnormal TSH acuteArthritis, rheumatoidacuteLower extremity edemaacuteUrinary frequencyacute Abnormal TSHacuteArthritis, rheumatoidacuteDiabetes mellitus, type 2acute Hypertensionacute [facility] Work Phone: evaluation note* Diagnosis Onset Date Resolution Status Abnormal TSH acuteArthritis, rheumatoidacuteDiabetes mellitus, type 2acuteHypertensionacute [facility] Work Phone: Evaluation note* Diagnosis Onset Date Resolution Status Admit Date Abnormal TSH acuteSept2024 11:25amScreening mammogram for breast canceracute December 21, 2024 11:25am [facility] Work Phone: Hissnwd general Narrative - Reported* Type Description Date [...] History back surgerySurgical Historyright hand trigger fingers /2022 Hospitalization Historysee above [facility] Other History general Narrative - Reported* Type [...] HistoryhysterectomySurgical Historyback surgerySurgical Historyright hand trigger fingers fcwrxuz96/2022Hospitalization Historysee above [facility] Other Hospital Discharge instructions No data available for this section [facility] No data available for this section [facility]Pro[facility] note Author Petr Kowalski [facility] December 24, 2022 11:58amNote Date/TimeOct2022 11:58[place] [address] Hospitalist Progress Note Signed Patient: Ruma Carlton MR#: [id number] : 1960 Acct:[id number] Age/Sex: 62 / F Adm Date: 3 Loc: Room: [address] [place] [address] Type: ADM INOo Attending Dr: Petr Kowalski MD Copies to: ~ Date of Service: 12/24/2022 Subjective Subjective Narrative: The patient is a 62 year old woman with a history of HTN, DVT/PE on xarelto, POTS, NIDDM2, paroxysmal SVT who presented to [place] ED after a fall. Per the patient [...] got up from sleeping to walk to thebathroom and fell- pt reports she felt wobbly after taking the flexeril. shedid not lose consciousness or feel dizzy and denies any chest pain or shortness of breath. Pt's right hip pain worsened over the course of Friday so she went to [place] ER for evaluation On arrival there vital [...] feels improved after she got Tyl[place]ol [place]- the patient is somewhat irritated at being [...] to the fall. Her CT head at [place] wasunremarkable for ICH patient remained stable here [...] 08:59 50 mg DAILY SANAZ Administration Pyridostigmine Edcouch 120 mg 12/24/22 09:00 12/24/22 08:36 Pyridostigmine Edcouch 60 Mg Tablet PO 12/24/23 08:59 120 [...] thrombosis): (5) Hyponatremia: Plan: mild (126 at [place])- ?medication related Plan -Repeat Troponin here WNL. Sodium level WNL -CT head done at [place] with no evidence of intracranial bleed. Patient remained stable with no focal deficits -X-ray of the hip done at [place] with no evidence of fracture dislocation -Patient [...] signed by Petr Kowalski MD> 12/24/22 1158 [facility] Work Phone: Reason for referral (narrative)No reason for referral information availableRegional Medical Center Work Phone: Summary Purpose Family History No [...] DeceasedUnknownmotherMalignant neoplasmUnknownHistory of strokeUnknownDeceased Unknown Advance Directives No Advanced Directives Records [...] R06.9 Amb Documentation CC Adult Risk Stratification [facility]:CABG-HIGH RISKReason for VisitAbnormal TSH Arthritis, rheumatoid Diabetes mellitus, type 2 Hypertension Chief Complaint Admit Date Amb Documentation May 17, 2024 1:57pm [facility]; heart failure-HIGH RISK May 28, 2024 [...] section and content) DATE CREATED AUTHOR 08/29/2018 [facility] DATE CREATED AUTHOR AUTHOR'S ORGANIZ ATION 03/20/2022 [facility] DATE CREATED AUTHOR AUTHOR'S ORGANIZ ATION 05/29/2022 [facility] DATE CREATED AUTHOR AUTHOR'S ORGANIZ ATION 06/05/2023 [facility] DATE CREATED AUTHOR AUTHOR'S ORGANIZ ATION 01/12/2025 [facility] DATE CREATED AUTHOR AUTHOR'S ORGANIZ ATION 02/04/2025 [facility] DATE CREATED AUTHOR AUTHOR'S ORGANIZ ATION 02/04/2025 [facility] Patient Care team informatio n (unrecognized section [...] Active Start: May 11, 2024 Denis Reid MDAttending ProviderActiveStart: May 11, 2024 Team Status: Active Member Role Status Dates NON STAFF Primary Care Provider Active Start: May 11, 2024 End: May 11isaac Mckeon , DOAttending ProviderActiveStart: May 11, 2024 End: May 11, 2024Shaikh Sheila MDReferring ProviderActiveStart: May 11, 2024 End: May 11, [...] Active Start: May 20, 2024 Anibal Chaudhary MDAttending ProviderActiveStart: May 20, 2024 Team Status: Inactive Member Role Status Dates NON STAFF Primary Care Provider Active Start: May 28, 2024 End: May 28, 2024Anibal Chaudhary MDAttarianne ProviderActiveStart: May 28, 2024 End: May 28, 2024 Team Status: Active Member Role Status Dates Anibal Chaudhary MD Primary Care Provider Active Team Status: Active Member Role Status Dates Anibal Chaudhary MD Primary Care Provider Active Start: September 07, 2023 Michael Luis MDAttending ProviderActiveStart: September 07, 2023 Team Status: [...] 02, 2023 End: December 02, 2023Barby Chen BLOW TORCH BURNER-CAttending ProviderActiveStart: December 02, 2023 End: December 02, 2023 Team Status: Inactive Member Role Status Elodia Chaudhary MD Primary Care Provider Active Violette Mosquera ProviderActiveObaydponcho Kowalski MDAttending ProviderActive Team Status: Inactive Member Role Status Elodia Chaudhary MD Primary Care Provider Active Outreach CommunityAttending ProviderActive Team Status: Inactive Member Role Status Elodia Chaudhary MD Primary Care Provider Active Start: February 25, 2023 End: February 25, 2023[facility] CommunityAttending ProviderActiveStart: February 25, 2023 End: February 25, 2023 Team Status: Inactive Member Role Status Elodia Chaudhary MD Primary Care Provide r, Attending Provider Active Start: May 08, 2023 End: May 08, 2023 Team Status: Inactive Member Role Status Elodia Chaudhary MD Primary Care Provider Active Start: July 08, 2023 End: July 07sumi Wagnoer BLOW TORCH BURNER-CAttending ProviderActiveStart: July 08, 2023 End: July 08, 2023 Team Status: Active Member Role Status Elodia Chaudhary MD Primary Care Provider Active Start: July 10, 2023 FRANCOISE MirAAtdelaney ProviderActiveStart: July 10, 2023 Team Status: Inactive [...] 22, 2024 End: January 22, 2024Anibal Chaudhary MDAttending ProviderActiveStart: January 22, 2024 End: January 22, 2024 Team Status: Active Member Role Status Dates Anibal Chaudhary MD Primary Care Provider Active Start: October 12, 2024 Darryl Pedraza NP-CAttending ProviderActiveStart: October 12, 2024 Team Status: Inactive Member Role Status Dates Anibal Chaudhary MD Primary Care Provider Active Start: December 21, 2024 End: December 21, 2024Anibal Chaudhary MDAttending ProviderActiveStart: December 21, 2024 End: December 21, 2024 Team Status: Inactive Member Role Status Dates Anibal Chaudhary MD Primary Care Provider Active Start: December 22, 2024 End: December 22kyung Santacruz MDAttending ProviderActiveStart: December 22, 2024 End: December 22, 2024 Team Status: Active Member Role/Relationship Status Dates Anibal Chaudhary MD Primary Care Provider Active Team Status: Inactive Member Role/Relationship Status Dates Anibal Chaudhary MD Primary Care Provider Active Start: December 21, 2024 End: December 21, 2024Anibal Chaudhary MDAttending ProviderActiveStart: December 21, 2024 End: December 21, [...] Team Status: Inactive Member Role/Relationship Status Dates nAibal Chaudhary MD Primary Care Provider Active Start: [...] BE BASED ON THE PRIMARY CLINICAL RECORDS. [facility]. provides no warranty or guarantee of the accuracy or completeness of information in this document.
== END 2025-02-11 14:29 | disposition home or self-care (01) ==
LOC: MAMMO 14:28
PROVIDERS: PCP Family Medicine; Visit Provider Family Medicine
DX: Z12.31 Encounter for screening mammogram for malignant neoplasm of breast (principal); Z80.3 Family history of malignant neoplasm of breast
CPT/HCPCS: 77063; 77067

== ENCOUNTER 2025-02-23 20:15 | Outpatient (OUT) | payer OTHER, SELFPAY ==
--- OUTSIDE RECORDS SUMMARY | 2022-10-24 08:00 | XMS_ITS | Continuity of Care Document ---
Author Organization [facility] Address [address] [place] [address] Phone Care Team Providers Care Guest Services Officer Name Role Phone Dejan Orozco MD, May Unavailable Unavailable Allergies, Adverse Reactions, Alerts Substance Reaction Status Criticality Sulfa (Sulfonamide Antibiotics) Hives, Rash Active No Information Medications Medication Instructions Dosage Effective Dates (start - stop) Status Comments ketorolac 0.5 % eye drops instill 1 drop by ophthalmic route 4 times every day into right eye(s) - Active Eliquis 5 mg tablet take 1 tablet by ora l route every day 5 MG - Active metoprolol tartrate 50 mg tablet take 1 tablet by oral route 2 times every day with meals 50 MG - Active lamotrigine 150 mg tablet take 1 tablet by oral route every day 150 MG - Active pyridostigmine bromide 60 mg tablet take 2 tablet by oral route 4 times every day 120 MG - Active Plaquenil 200 mg tablet take 1 tablet by oral route 2 times every day 200 MG - Active Januvia 50 mg tablet take 1 tablet by or al route every day 50 MG - Active Effexor XR 150 mg capsule,extended release take 1 capsule by oral route 2 times every day 150 MG - Active Procedures Procedure Date Fundus Photos No Charge Bilateral Ophthal DX Image Post Retina I And R Uni Or Bi OFFICE/OUTPATIENT VISIT, NEW Advance Directives Directive Yes / No Effective Date File Name No Information Encounters Encounter Description Practice Location Reason(s) For Visit Diagnoses Date Provider Providers Copied on Encounter OFFICE/OUTPA TIENT VISIT, [facility] Physician s, [address], [place], [address], [place] tel:[phone] RVA Powell ERM (chief complaint) Macular drusen, bilateralEpiretinal membrane, rightMacular pseudohole, rightType 2 diabetes mellitus without complicationsCombined forms of age-related cataract, bilateral Dejan Orozco July. [address], [address], [place], [place], [id number] , [place]. tel:[phone] Referring Provider: July Dejan Orozco, [address], [place], [address] . tel:[phone] Family History Family Member Type Diagnosis Age At Onset Mother Problem (finding) Stroke Mother Problem (finding) Cancer, breast Sister Problem (finding) Cataracts Father Problem (finding) Macular degeneration Payers Payer name Insurance type Covered republican ID Sujata mcallister(s) Marciano Zaragoza [facility] [place] [id number] Social History Type Description Quantity Date Captured Comments Alcohol Use Details Caffeine Use Details Tobacco Use Status Heavy cigarette smok er (20-39 cigs/day) Smoking Status Heavy tobacco smoker Smoking Tobacco Use Details Cigarette: Age Started: 16, Years Used 46 Cigarette: 1 Packs per day, Pack Year: 45 [id number] SexFemale Vital Signs Date / Time: Height Weight BMI Pulse Rate Blood Pressure Temperature Respiratory Rate Body Surface Area Head Circumference Head Circ. Percentile Wt./Ministerio. Percentile BMI percentile Pulse Ox Inhaled Ox 1:26 PM 100/65 mm[Hg] Chief Complaint And Reason For Visit From encounter dated '10/24/2022 13:00'. ERM (chief complaint). Description: The 61 year old female presents for evaluation of ERM in the right eye. PT referred by Ranjeet Prado OD. Pt reports the vision OD is a bit blurry and had not really noticed the vision was not as it should be. She states the vision change has been granule over the last 6 months. She denies flashes, floaters and ocular pain. She has been on Plaquenil for about 3 years, she had stopped for 2 years and was using for a year or so before that. Current dosage is 200 mgBID and ~weight is 214lbs. She is a type 2 NIDDM pt last a1c was 5.9. Reason For Referral Reason For Referral No Information Plan Of Treatment Date Type Action Status Goal Tobacco cessation counseling completed History Of Present Illness Encounter Date Complaint History Of Prese nt Illness ERM The 61 year old female presents for evaluation of ERM in the right eye. PT referred by Ranjeet Prado OD. Pt reports the vision OD is a bit blurry and had not really noticed the vision was not as it should be. She states the vision change has been granule over the last 6 months. She denies flashes, floaters and ocular pain. She has been on Plaquenil for about 3 years, she had stopped for 2 years and was using for a year or so before that. Current dosage is 200 mg BID and ~weight is 214lbs. She is a type 2 NIDDM pt last a1c was 5.9. Functional Status Date Functional Assessmen t No Information Instructions Date Instruction Additional Infor francesca Impression/Plan Related to Macul ar pseudohole, right Impression/Plan Related to Epire tinal membrane, right Impression/Plan Related to Macul ar drusen, bilateral Impression/Plan Related to Type 2 diabetes mellitus without complications Impression/Plan Related to Combi joon forms of age-related cataract, bilateral Assessments Type Assessment Date assessment Macular drusen, bilateral assessment Epiretinal membrane, right assessment Macular pseudohole, right assessment Type 2 diabetes mellitus without complications impression Macular pseudohole, right: H35.3 41 impression Epiretinal membrane, right: H35. 371 impression Macular drusen, bilateral: H35.3 63 impression Type 2 diabetes mellitus without complications: E11.9 assessment Combined forms of age-related ca taract, bilateral Patient Care Teams Name Effective Dates (start - stop) Status Members No Information
--- OUTSIDE RECORDS SUMMARY | 2024-05-27 07:30 | XMS_ITS ---
Author Organization [employer] Address [address] [place] [address] Care Team Providers Care Handle Sewer Name Role Phone Pam Wagoner Primary Care Provider [phone] REASON FOR VISIT 3 month f/u Encounters Encounter Location Date Provider Diagnosis [facility] [address] [place] [address] 05/27/2024 Pam Wagoner Plan Of Treatment Next Appt Details Provider Name:Kelsey samuels, 03/11/2025 04:00:00 PM, [address] [place], [address], Progress Notes * NICOLAS HARRISDOB:1960 ( 64 yo F)Acc No.[id number]:05/27/2024 Behavioral Health Patient: Jossie FRANCIS NICOLAS :?Pam WagonerDOB:1960???Age:63 Y???Sex:Female Date:05/27/2024Phone:[phone]:[address] [address], [place], [id number] Subjective: * Chief Complaints: * 3 month f/u * Electronic signature of YVES Fisher on 02/23/2025 at 08:18 PM ESTSign off status: Pending * Provider: Isabel Wagoner Date: 0 05/27/2024 Generated for Printing/Faxing/eTransmitting on:?02/23/2025 08:18 PM EST
--- OUTSIDE RECORDS SUMMARY | 2024-05-27 07:30 | XMS_ITS ---
Author Organization [employer] Address [address] [place] [address] Care Team Providers Care Rotary Surface Grinder Name Role Phone Pam Wagoner Primary Care Provider REASON FOR VISIT 3 month f/u Encounters Encounter Location Date Provider Diagnosis [facility] [address] [place] [address] 05/27/2024 Pam Wagoner Plan Of Treatment Next Appt Details Provider Name:Kelsey samuels, 02/03/2025 11:45:00 AM, [address] [place], [address], Progress Notes * NICOLAS HARRISDOB:1960 ( 64 yo F)Acc No.[id number]:05/27/2024 Behavioral Health Patient: Jossie FRANCIS NICOLAS :?Pam WagonerDOB:1960???Age:63 Y???Sex:Female Date:05/27/2024Phone:[phone]:[address]-[address] Subjective: * Chief Complaints: * 3 month f/u * Electronic signature of YVES Fisher on 01/27/2025 at 09:00 PM ESTSign off status: Pending * Provider: Isabel Wagoner Date: 0 05/27/2024 Generated for Printing/Faxing/eTransmitting on:?01/27/2025 09:00 PM EST
--- OUTSIDE RECORDS SUMMARY | 2024-05-27 08:00 | XMS_ITS ---
Author Organization [employer] Address [address] [place] [address] Care Team Providers Care Corporate Director Of Pharmacy Name Role Phone Pam Wagoner Primary Care Provider [phone] REASON FOR VISIT bh fu Encounters Encounter Location Date Provider Diagnosis [facility] [address] [place] [address] 05/27/2024 Pam Wagoner Plan Of Treatment Next Appt Details Provider Name:Kelsey samuels, 02/03/2025 11:45:00 AM, [address] [place], [address], Progress Notes * NICOLAS HARRISDOB:1960 ( 64 yo F)Acc No.[id number]:05/27/2024 Behavioral Health Patient: Jossie FRANCIS NICOLAS :?Pam WagonerDOB:1960???Age:63 Y???Sex:Female Date:05/27/2024Phone:[phone]:[address]-[address] Subjective: * Chief Complaints: * B h fu Billing Information: * Procedure Codes: * Electronic signature of YVES Fisher on 01/27/2025 at 09:01 PM ESTSign off status: Pending * Provider: Isabel Wagoner Date: 0 05/27/2024 Generated for Printing/Faxing/eTransmitting on:?01/27/2025 09:01 PM EST
--- OUTSIDE RECORDS SUMMARY | 2024-05-27 08:00 | XMS_ITS ---
Author Organization [employer] Address [address] [place] [address] Care Team Providers Care Public Health Dentist Name Role Phone Pam Wagoner Primary Care Provider REASON FOR VISIT bh fu Encounters Encounter Location Date Provider Diagnosis [facility] [address] [place] [address] 05/27/2024 Pam Wagoner Plan Of Treatment Next Appt Details Provider Name:Kelsey samuels, 03/11/2025 04:00:00 PM, [address] [place], [address], Progress Notes * NICOLAS HARRISDOB:1960 ( 64 yo F)Acc No.[id number]:05/27/2024 Behavioral Health Patient: Jossie FRANCIS NICOLAS :?Pam WagonerDOB:1960???Age:63 Y???Sex:Female Date:05/27/2024Phone:[phone]:[address]-[address] Subjective: * Chief Complaints: * B h fu Billing Information: * Procedure Codes: * Electronic signature of YVES Fisher on 02/23/2025 at 08:18 PM ESTSign off status: Pending * Provider: Isabel Wagoner Date: 0 05/27/2024 Generated for Printing/Faxing/eTransmitting on:?02/23/2025 08:18 PM EST
--- OUTSIDE RECORDS SUMMARY | 2024-06-22 05:45 | XMS_ITS ---
Author Organization [employer] es Address [address] [place] [address] Care Team Providers Care Valve Inserter Name Role Phone Pam Wagoner Primary Care Provider [phone] REASON FOR VISIT r/s 05/27 Encounters Encounter Location Date Provider Diagnosis [facility] [address] [place] [address] 06/22/2024 Pam Wagoner Plan Of Treatment Next Appt Details Provider Name:Kelsey samuels, 03/11/2025 04:00:00 PM, [address] [place], [address], Progress Notes * NICOLAS HARRISDOB:1960 ( 64 yo F)Acc No.[id number]:06/22/2024 Behavioral Health Patient: Jossie FRANCIS NICOLAS :?Pam WagonerDOB:1960???Age:63 Y???Sex:Female Date:06/22/2024Phone:[phone]:[address] [address], [place], [id number] Subjective: * Chief Complaints: * R /s 05/27 Billing Information: * Procedure Codes: * Electronic signature of YVES Fisher on 02/23/2025 at 08:19 PM ESTSign off status: Pending * Provider: Isabel Wagoner Date: 0 06/22/2024 Generated for Printing/Faxing/eTransmitting on:?02/23/2025 08:19 PM EST
--- OUTSIDE RECORDS SUMMARY | 2024-06-22 05:45 | XMS_ITS ---
Author Organization [employer] es Address [address] [place] [address] Care Team Providers Care Card Tender Name Role Phone Pma Wagoner Primary Care Provider REASON FOR VISIT r/s 05/27 Encounters Encounter Location Date Provider Diagnosis [facility] [address] [place] [address] 06/22/2024 Pam Wagoner Plan Of Treatment Next Appt Details Provider Name:Kelsey Jim samuels, 02/03/2025 11:45:00 AM, [address] [place], [address], Progress Notes * NICOLAS HARRISDOB:1960 ( 64 yo F)Acc No.[id number]:06/22/2024 Behavioral Health Patient: Jossie FRANCIS NICOLAS :?Pam WagonerDOB:1960???Age:63 Y???Sex:Female Date:06/22/2024Phone:[phone]:[address] [address], [place], [place] Subjective: * Chief Complaints: * R /s 05/27 Billing Information: * Procedure Codes: * Electronic signature of YVES Fisher on 01/27/2025 at 09:01 PM ESTSign off status: Pending * Provider: Isabel Wagoner Date: 0 06/22/2024 Generated for Printing/Faxing/eTransmitting on:?01/27/2025 09:01 PM EST
--- OUTSIDE RECORDS SUMMARY | 2024-12-06 08:30 | XMS_ITS ---
Author Organization [employer] es Address [address] [place] [address] Care Team Providers Care Veterinarian Helper Name Role Phone Pam Wagoner Primary Care Provider Kelsey Granado Unavailable [phone] REASON FOR VISIT Pt is a 64 year old female, BILL from [facility], 5 month f/u, Pt states she is depressed due to her other health concerns, mainly her heart problems, Pt states she cannot fall asleep and cannot stay asleep, interested a a sleep med, LM Medications Medication SIG (Take, Route, Frequency, Duration) Notes Start Date End Date Status Xarelto 20 MG Tablet 1 tablet with food Orally O nce a day Not-Taking/PRNLasix 40 MG Tablet1 tablet Orally Once a dayNot-Taking/PRNBaby AspirinNot-Taking/PRNHydroxychloroquine Sulfate 200 MG Tablet2 tablets Orally twice a dayNot-Taking/PRNJanuvia 100 MG Tablet1 tablet Orally Once a day Not-Taking/PRNAtorvastatin Calcium 40 MG Tablet1 tablet Orally Once a day Not-Taking/PRNMagnesium Oxide 400 MG Tablet1 tablet as needed Orally Once a day Not-Taking/PRNMetoprolol Succinate ER 25 MG Tablet Extended Release 24 Hour1/2 tablet Orally twice a dayActiveSpironolactone 25 MG Tablet1/2 tablet Orally once a dayActiveFurosemide 40 MG Tablet1 tablet Orally twice a dayActiveXarelto 20 MG Tablet1 tablet with food Orally Once a dayActiveLevothyroxine Sodium 50 MCG Tablet1 tablet in the morning on an empty stomach Orally Once a dayActive Rosuvastatin Calcium 20 MG Tablet1 tablet Orally Once a dayActiveFarxiga 10 MG Tablet1 tablet Orally Once a dayActivepyRIDostigmine [place] 60 MG Tablet1 tablet Orally two tabletsActiveDoxepin HCl 10 MG Capsule1 capsule at bedtime Orally Once a day; Duration: 30 day(s)5ActiveClopidogrel Bisulfate 75 MG Tablet1 tablet Orally Once a dayActiveVenlafaxine HCl ER 150 MG Capsule Extended Release 24 Hour2 tablets with food Orally Once a day; Duration: 90 days ActivelamoTRIgine 200 MG Tablet1 tablet at bedtime Orally Once a day; Duration: 90 daysActive Vital Signs Heart Rate 57 /min 12/06/2024 Height 61.5 in 12/06/2024 Weight 239.0 lbs 12/06/2024 BMI 44.42 kg/m2 12/06/2024 Oximetry 96 % 12/06/2024 Encounters Encounter Location Date Provider Diagnosis [facility] [address] [place] [address] 12/06/2024 Kelsey Granado Mood disorder F39 ; Anxiety F41.9 and 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 Assessments Encounter Date Diagnosis (ICD Code) Assessment Notes Treatment Notes Treatment Clinical Notes Section Notes 12/06/2024 Mood disorder (ICD-10 - F39) 12/06/2024nxiety (ICD-10 - F41.9)12/06/2024Insomnia disorder with non-sleep disorder mental comorbidity (ICD-10 - G47.00) Plan Of Treatment Medication Medication Name Sig Start Date Stop Date Notes Doxepin HCl 10 MG Capsule 1 capsule at b edtime Orally Once a day; Duration: 30 day(s) 12/06/2024 Venlafaxine HCl ER 150 MG Capsule Extended Release 24 Hour2 tablets with food Orally Once a day; Duration: 90 dayslamoTRIgine 200 MG Tablet1 tablet at bedtime Orally Once a day; Duration: 90 daysNext Appt Details Provider Name:Kelsey samuels, 02/03/2025 11:45:00 AM, [facility] [place], [address], History and Physical Notes * Examination CategorySub-CategoryDetailNotesCategory NotesGeneral Examination . MENTAL STATUS EXAM: . Appearance: Appropriately dressed and groomed, good eye contact, cooperative, pleasant Behavior/Motor Activity: Normal Gait/Station: Within normal limits Speech: Normal Mood: Good Affect: Full Thought processes/Associations: Logical and goal directed Thought Content: Non-psychotic Cognition/Attention/Memory/Concentration: Alert and oriented x 4; grossly intact attention; memory-recent/remote judged adequate by interviewer Insight: Good Judgement: Good language: Within normal limits Fund of Knowledge: Adequate . Progress Notes * KIMBERLYNICOLASDOB:1960 ( 64 yo F)Acc No.[id number]:12/06/2024 Behavioral Health Patient: NICOLAS GALLAGHER :Samira NeunielsDOB:1960???Age:64 Y???Sex: FemaleDate:12/06/2024Phone:[phone]:[address] [facility], [address], [place], [id number]:Pam Wagoner Subjective: * Chief Complaints: * P t is a 64 year old female, BILL from [facility], 5 month f/uPt states she is depressed due to her other health concerns, mainly her heart problemsPt states she cannot fall asleep and cannot stay asleep, interested a a sleep medLM * HPI: ???Constitutional:?Pt is being seen today for follow up via in-office visit.??This is pt's first visit with this provider. She is a BILL from [facility].?Pt is tolerating meds well and taking medications daily. . Pt states she is ok . Pt states she has a lot of health problems and is depressing. She had open heart last Dec. Her kids? . Pt denies mood fluctuation. Energy and motivation are stable. Depressive symptoms are not persistent. Denies episodes of having sadness, anhedonia, isolating behaviors, or crying spells. Anxiety controlled. Concentration intact without distractibility. . Sleeping through the night and feels rested upon waking up. Denies Nightmares. Appetite is good. . Denies Euphoria. Pervasive irritability is controlled today. Meaningful relationships intact. Denies increased goal-oriented behavior or increase in purposeless activity. Attending work/school as scheduled. . Denies suicidal or homicidal ideation or plan. No morbid thoughts. Interpersonal issues discussed. Support provided. Insight oriented/ Behavior modifying/ Supportive therapy . * ROS: ???CONSTITUTIONAL: No fever, chills, sweats, weakness SKIN: No jaundice, rash, lesions, petechiae GASTROINTESTINAL: No nausea, vomiting, diarrhea, or GI bleeding MUSCULOSKELETAL: No muscle pain or weakness NEUROLOGIC: No headache, dizziness, numbness, or weakness . * Medications: T akingClopidogrel Bisulfate 75 MG Tablet 1 tablet Orally Once a day Farxiga 10 MG Tablet 1 tablet Orally Once a day Rosuvastatin Calcium 20 MG Tablet 1 tablet Orally Once a day Levothyroxine Sodium 50 MCG Tablet 1 tablet in the morning on an empty stomach Orally Once a day Xarelto 20 MG Tablet 1 tablet with food Orally Once a day pyRIDostigmine [place] 60 MG Tablet 1 tablet Orally two tablets Furosemide 40 MG Tablet 1 tablet Orally twice a day Spironolactone 25 MG Tablet 1/2 tablet Orally once a day Metoprolol Succinate ER 25 MG Tablet Extended Release 24 Hour 1/2 tablet Orally twice a day lamoTRIgine 200 MG Tablet 1 tablet at bedtime Orally Once a day Venlafaxine HCl ER 150 MG Capsule Extended Release 24 Hour 2 tablets with food Orally Once a day Taking Clopidogrel Bisulfate 75 MG Tablet 1 tablet Orally Once a day Taking Farxiga 10 MG Tablet 1 tablet Orally Once a day Taking Rosuvastatin Calcium 20 MG Tablet 1 tablet Orally Once a day Taking Levothyroxine Sodium 50 MCG Tablet 1 tablet in the morning on an empty stomach Orally Once a day Taking Xarelto 20 MG Tablet 1 tablet with food Orally Once a day Taking pyRIDostigmine [place] 60 MG Tablet 1 tablet Orally two tablets Taking Furosemide 40 MG Tablet 1 tablet Orally twice a day Taking Spironolactone 25 MG Tablet 1/2 tablet Orally once a day Taking Metoprolol Succinate ER 25 MG Tablet Extended Release 24 Hour 1/2 tablet Orally twice a day Taking lamoTRIgine 200 MG Tablet 1 tablet at bedtime Orally Once a day Taking Venlafaxine HCl ER 150 MG Capsule Extended Release 24 Hour 2 tablets with food Orally Once a day Not-Taking/PRNMagnesium Oxide 400 MG Tablet 1 tablet as needed Orally Once a day Atorvastatin Calcium 40 MG Tablet 1 tablet Orally Once a day Baby Aspirin Lasix 40 MG Tablet 1 tablet Orally Once a day Xarelto 20 MG Tablet 1 tablet with food Orally Once a day Januvia 100 MG Tablet 1 tablet Orally Once a day Hydroxychloroquine Sulfate 200 MG Tablet 2 tablets Orally twice a day Medication List reviewed and reconciled with the patientNot-Taking/PRN Magnesium Oxide 400 MG Tablet 1 tablet as needed Orally Once a day Not-Taking/PRN Atorvastatin Calcium 40 MG Tablet 1 tablet Orally Once a day Not-Taking/PRN Baby Aspirin Not-Taking/PRN Lasix 40 MG Tablet 1 tablet Orally Once a day Not-Taking/PRN Xarelto 20 MG Tablet 1 tablet with food Orally Once a day Not-Taking/PRN Januvia 100 MG Tablet 1 tablet Orally Once a day Not-Taking/PRN Hydroxychloroquine Sulfate 200 MG Tablet 2 tablets Orally twice a day Medication List reviewed and reconciled with the patient Objective: * Vitals: H t: 61.5 in, Wt: 239.0 lbs, BMI:44.42Index, SaO2:96%, HR: 57 /min. * Examination: ???General Examination: ???. MENTAL STATUS EXAM: . Appearance: Appropriately dressed and groomed, good eye contact, cooperative, pleasant Behavior/Motor Activity: Normal Gait/Station: Within normal limits Speech: Normal Mood: Good Affect: Full Thought processes/Associations: Logical and goal directed Thought Content: Non-psychotic Cognition/Attention/Memory/Concentration: Alert and oriented x 4; grossly intact attention; memory-recent/remote judged adequate by interviewer Insight: Good Judgement: Good BH language: Within normal limits Fund of Knowledge: Adequate . . Assessment: * Assessment: 1.?Mood disorder - F39 (Primary)???2.?Anxiety - F41.9???3. Insomnia disorder with non-sleep disorder mental comorbidity - G47.00??? Plan: * Treatment: Refill lamoTRIgine Tablet, 200 MG, 1 tablet at bedtime, Orally, Once a day, 90 days, 90, Refills 1. ?2.?Anxiety? Refill Venlafaxine HCl ER Capsule Extended Release 24 Hour, 150 MG, 2 tablets with food, Orally, Once a day, 90 days, 180 Tablet, Refills 0.??3.?Insomnia disorder with non-sleep disorder mental comorbidity? Start Doxepin HCl Capsule, 10 MG, 1 capsule at bedtime, Orally, Once a day, 30 day(s), 30.? * Electronic signature of YVES Álvarez on 01/27/2025 at 09:00 PM EST Sign off status: Pending * Provider: Jim Granado Date: 0 12/06/2024 Generated for Printing/Faxing/eTransmitting on:?01/27/2025 09:00 PM EST
--- OUTSIDE RECORDS SUMMARY | 2024-12-23 08:00 | XMS_ITS ---
Author Organization [employer] Address [address] [place] [address] Care Team Providers Care Kiln Tender Name Role Phone Pam Wagoner Primary Care Provider REASON FOR VISIT 6 month f/u Encounters Encounter Location Date Provider Diagnosis [facility] [address] [place] [address] 12/23/2024 Pam Wagoner Plan Of Treatment Next Appt Details Provider Name:Kelsey samuels, 02/03/2025 11:45:00 AM, [address] [place], [address], Progress Notes * NICOLAS HARRISDOB:1960 ( 64 yo F)Acc No.[id number]:12/23/2024 Behavioral Health Patient: Jossie FRANCIS NICOLAS :?Pam WagonerDOB:1960???Age:64 Y???Sex:Female Date:12/23/2024Phone:[phone]:[address]-[address] Subjective: * Chief Complaints: * 6 month f/u * Electronic signature of YVES Fisher on 01/27/2025 at 09:00 PM ESTSign off status: Pending * Provider: Isabel Wagoner Date: 1 Generated for Printing/Faxing/eTransmitting on:?01/27/2025 09:00 PM EST
--- OUTSIDE RECORDS SUMMARY | 2024-12-23 08:00 | XMS_ITS ---
Author Organization [facility] Address [address] [place] [address] Care Team Providers Care Contract Lead Name Role Phone Pam Wagoner Primary Care Provider REASON FOR VISIT 6 month f/u Encounters Encounter Location Date Provider Diagnosis [facility] [address] [place] [address] 12/23/2024 Pma Wagoner Plan Of Treatment Next Appt Details Provider Name:Kelsey samuels, 03/11/2025 04:00:00 PM, [address] [place], [address], Progress Notes * NICOLAS HARRISDOB:1960 ( 64 yo F)Acc No.[id number]:12/23/2024 Behavioral Health Patient: Jossie FRANCIS NICOLAS :?Pam WagonerDOB:1960???Age:64 Y???Sex:Female Date:12/23/2024Phone:[phone]:[address]-[address] Subjective: * Chief Complaints: * 6 month f/u * Electronic signature of YVES Fisher on 02/23/2025 at 08:18 PM ESTSign off status: Pending * Provider: Isabel Wagoner Date: 1 Generated for Printing/Faxing/eTransmitting on:?02/23/2025 08:18 PM EST
--- OUTSIDE RECORDS SUMMARY | 2025-01-03 10:30 | XMS_ITS ---
Author Organization [facility] Address [address] [place] [address] Care Team Providers Care Claims Assistant Name Role Phone Pam Wagoner Primary Care Provider [phone] Kelsey Granado Unavailable [phone] REASON FOR VISIT Pt is a 64 year old female here today for 1 month f/u bh, Pt states Doxepin was wiping her out, allshe wanted to do was sleep, she took it for about 3 days and stopped, Pt states she is doing ok, she feels like she is on a roller coaster, is ok one day and next just wants to cry, Pt states she needs to get her anxiety under control, LM Medications Medication SIG (Take, Route, Frequency, Duration) Notes Start Date End Date Status Hydroxychloroquine Sulfate 200 MG Tablet 2 table ts Orally twice a day Not-Taking/PRNLasix 40 MG Tablet1 tablet Orally Once a dayNot-Taking/PRNBaby AspirinNot-Taking/PRNJanuvia 100 MG Tablet1 tablet Orally Once a day Not-Taking/PRNXarelto 20 MG Tablet1 tablet with food Orally Once a day Not-Taking/PRNMetoprolol Succinate ER 25 MG Tablet Extended Release 24 Hour1/2 tablet Orally twice a dayActiveSpironolactone 25 MG Tablet1/2 tablet Orally once a dayActiveEntresto 24-26 MG Tablet1/2 tablet once a day Oral; Duration: 90 days ActiveAtorvastatin Calcium 40 MG Tablet1 tablet Orally Once a dayNot-Taking/PRN Magnesium Oxide 400 MG Tablet1 tablet as needed Orally Once a dayNot-Taking/PRN Furosemide 40 MG Tablet1 tablet Orally twice a dayActivepyRIDostigmine Peotone 60 MG Tablet1 tablet Orally two tabletsActiveRosuvastatin Calcium 20 MG Tablet1 tablet Orally Once a dayActiveXarelto 20 MG Tablet1 tablet with food Orally Once a dayActiveLevothyroxine Sodium 50 MCG Tablet1 tablet in the morning on an empty stomach Orally Once a dayActiveDoxepin HCl 6 MG Tablet1 tablet at bedtime Orally Once a day; Duration: 30 days12/06/2024tiveVenlafaxine HCl ER 150 MG Capsule Extended Release 24 Hour2 tablets with food Orally Once a day; Duration: 90 days ActiveARIPiprazole 5 MG Tablet1 tablet Orally Once a day; Duration: 30 day(s) 01/03/2025tiveClopidogrel Bisulfate 75 MG Tablet1 tablet Orally Once a day ActiveFarxiga 10 MG Tablet1 tablet Orally Once a dayActivelamoTRIgine 200 MG Tablet1 tablet at bedtime Orally Once a day; Duration: 90 daysActive Vital Signs Blood pressure systolic 123 mm Hg 01/04/20 25 Blood pressure diastolic 78 mm Hg 025 Heart Rate 78 /min 01/03/2025 Height 61.5 in 01/03/2025 Weight 241.0 lbs 01/03/2025 BMI 44.79 kg/m2 01/03/2025 Oximetry 97 % 01/03/2025 Encounters Encounter Location Date Provider Diagnosis [address] [address] 01/03/2025 Kelsey Granado Mood disorder F39 ; Anxiety F41.9 and 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 Assessments Encounter Date Diagnosis (ICD Code) Assessment Notes Treatment Notes Treatment Clinical Notes Section Notes 01/03/2025 Mood disorder (ICD-10 - F39) 01/03/2025nxiety (ICD-10 - F41.9)01/03/2025Insomnia disorder with non-sleep disorder mental comorbidity (ICD-10 - G47.00) Plan Of Treatment Medication Medication Name Sig Start Date Stop Date Notes Doxepin HCl 6 MG Tablet 1 tablet at bedt karie Orally Once a day; Duration: 30 days 12/06/2024 Venlafaxine HCl ER 150 MG Capsule Extended Release 24 Hour2 tablets with food Orally Once a day; Duration: 90 daysARIPiprazole 5 MG Tablet1 tablet Orally Once a day; Duration: 30 day(s)01/03/2025lamoTRIgine 200 MG Tablet1 tablet at bedtime Orally Once a day; Duration: 90 daysNext Appt Details Provider Name:Kelsey Cook paul, 03/11/2025 04:00:00 PM, [address] [facility], [place], [address], Progress Notes * NICOLAS HARRISDOB:1960 ( 64 yo F)Acc No.[id number]:01/03/2025 Behavioral Health Patient: Jossie FRANCIS NICOLAS :?Kelsey GranadoDOB:1960???Age:64 Y???Sex: FemaleDate:01/03/2025Phone:[phone]:[address] [facility], [address], [place], [id number]:Pam Wagoner Subjective: * Chief Complaints: * P t is a 64 year old female here today for 1 month f/u bhPt states Doxepin was wiping her out, all she wanted to do was sleep, she took it for about 3 days and stoppedPt states she is doing ok, she feels like she is on a roller coaster, is ok one day and next just wants to cryPt states she needs to get her anxiety under controlLM * HPI: ???Constitutional:? Pt is being seen today for follow up via in-office visit. Pt is tolerating meds well and taking medications daily. . Pt states she was knocked out from the 10mg of Doxepin. would like to go down to a lower dose.? . Pt states she is having mood fluctuation. Energy and motivation are stable. Depressive symptoms arepersistent. Denies episodes of having sadness, anhedonia, isolating behaviors, and is having cryingspells. Anxiety controlled. Concentration intact without distractibility. . [...] oriented/ Behavior modifying/ Supportive therapy . * Medications: T akingClopidogrel Bisulfate 75 [...] with food Orally Once a day pyRIDostigmine Peotone 60 MG Tablet 1 tablet Orally two [...] tablets with food Orally Once a day Entresto 24-26 MG Tablet 1/2 tablet once a day Oral Taking Clopidogrel Bisulfate 75 MG Tablet 1 [...] food Orally Once a day Taking pyRIDostigmine [place]one 60 MG Tablet 1 tablet Orally two [...] with food Orally Once a day Taking Entresto 24-26 MG Tablet 1/2 tablet once a day Oral Not-Taking/PRNDoxepin HCl 10 MG Capsule 1 capsule at bedtime Orally Once a day Magnesium Oxide 400 MG Tablet 1 tablet [...] List reviewed and reconciled with the patientNot-Taking/PRN Doxepin HCl 10 MG Capsule 1 capsule at bedtime Orally Once a day Not-Taking/PRN Magnesium Oxide 400 MG Tablet 1 tablet [...] * Vitals: H t: 61.5 in, Wt: 241.0 lbs, BMI:44.79Index, BP: 123/78 mm Hg, SaO2:97%, HR: 78 /min. Assessment: * Assessment: 1.?Mood disorder - F39 (Primary)???2.?Anxiety - F41.9???3. Insomnia disorder with non-sleep disorder mental comorbidity - G47.00??? Plan: * Treatment: Continue lamoTRIgine Tablet, 200 MG, 1 tablet at bedtime, Orally, Once a day, 90 days, 90, Refills 1;?Start ARIPiprazole Tablet, 5 MG, 1 tablet, Orally, Once a day, 30 day(s), 30.??2.?Anxiety? Continue Venlafaxine HCl ER Capsule Extended Release 24 Hour, 150 MG, 2 tablets with food, Orally, Once a day, 90 days, 180 Tablet, Refills 0.??3.?Insomnia disorder with non-sleep disorder mental comorbidity? Decrease Doxepin HCl Tablet, 6 MG, 1 tablet at bedtime, Orally, Once a day, 30 days, 30 Tablet, Refills 0.?? Billing Information: * Procedure Codes: * Electronic signature of YVES Álvarez on 02/23/2025 at 08:19 PM EST Sign off status: Pending * Provider: Jim Granado Date: 1 Generated for Printing/Faxing/eTransmitting on:?02/23/2025 08:19 PM EST
--- OUTSIDE RECORDS SUMMARY | 2025-01-03 10:30 | XMS_ITS ---
Author Organization [facility] Address [address] [place] [address] Care Team Providers Care Machine Tack Puller Name Role Phone Pam Wagoner Primary Care Provider Kelsey Granado Unavailable [phone] REASON FOR VISIT Pt is a 64 [...] MG Tablet1 tablet Orally twice a dayActivepyRIDostigmine [place] 60 MG Tablet1 tablet Orally two tabletsActiveRosuvastatin [...] 01/03/2025 Encounters Encounter Location Date Provider Diagnosis [address] [address] 01/03/2025 Kelsey Granado Mood disorder F39 ; [...] 90 daysNext Appt Details Provider Name:Kelsey Cook arvind, 02/03/2025 11:45:00 AM, [address] [facility], [place], [address], Progress Notes * NICOLAS HARRISDOB:1960 ( 64 yo F)Acc No.[id number]:01/03/2025 Behavioral Health Patient: Jossie FRANCIS NICLOAS :?Kelsey GranadoDOB:1960???Age:64 Y???Sex: FemaleDate:01/03/2025Phone:[phone]:[address] [facility], [address], [id number]:Pam Wagoner Subjective: * Chief Complaints: * P [...] with food Orally Once a day pyRIDostigmine [place] 60 MG Tablet 1 tablet Orally two [...] food Orally Once a day Taking pyRIDostigmine [place] 60 MG Tablet 1 tablet Orally two [...] signature of YVES Álvarez on 01/27/2025 at 09:01 PM EST Sign off status: Pending * Provider: Jim Granado Date: 1 Generated for Printing/Faxing/eTransmitting on:?01/27/2025 09:01 PM EST
--- OUTSIDE RECORDS SUMMARY | 2025-01-17 05:50 | XMS_ITS | Encounter Summary ---
Author Organization [facility] Address [address] [place] [address] Care Team Providers Care Field Human Resources Manager Name Role Phone Merissa Mayfield MD Primary Care Provider [phone] Reason for Visit * Auth/Cert (Routine)SpecialtyDiagnoses / ProceduresReferred By ContactReferred To Contact Diagnoses Palpitations Palpitations [R00.2] Procedures RI INSERTION SUBQ CARDIAC RHYTHM MONITOR W/PRGRMG Loop insertion Konrad Campoverde MD [address] [place] [address] Phone: tel: fax: [facility] Heart [facility] [address] [place] [address] Phone: tel: fax: Referral IDStatusReasonStart DateExpiration DateVisits RequestedVisits [id number] Encounter Details DateTypeDepartmentCare Team (Latest Contact Info)Famgcqepqkz95/27/2025 6:50 AM EDT - 01/17/2025 9:52 AM EDTHospital Encounter [facility] Heart [facility] [address] [place] [address] Konrad Campoverde MD [address] [place] [address] Palpitations Discharge Disposition: Home or Self Care () Social History Tobacco UseTypesPacks/DayYears UsedDateSmoking Tobacco: MvilemDctjecomkr918 Smokeless Tobacco: NeverAlcohol UseStandard Drinks/WeekCommentsYes0 (1 standard drink = 0.6 oz pure alcohol)maybe every 2 or 3 months [facility] UtilitiesAnswerDate RecordedIn the past 12 months has the electric, gas, oil, or water company threatened to shut off services in your home?No05/11/2024 Humiliation, Afraid, Rape, and Kick questionnaireAnswerDate RecordedWithin the last year, have you been afraid of your partner or ex-partner?No05/11/2024 Emotionally AbusedNot on file05/11/2024Physically AbusedNot on file05/11/2024 Sexually AbusedNot on file05/11/2024Overall Financial Resource Strain (CARDIA) AnswerDate RecordedHow hard is it for you to pay for the very basics like food, housing, medical care, and heating?Somewhat hard05/11/2024PHQ-2AnswerDate RecordedPatient Health Questionnaire-2 [id number] Safety & Environment AnswerDate RecordedWithin the last year, have you been afraid of your partner or ex-partner?No11/11/2022Within the last year, have you been humiliated or emotionally abused in other ways by your partner or ex-partner?11/11/2022 Within the last year, have you been kicked, hit, slapped, or otherwise physically hurt by your partner or ex-partner?11/11/2022Within the last year, have you been raped or forced to have any kind of sexual activity by your part ner or ex-partner?No11/11/2022hysically or Sexually AbusedNot on file11/11/2022 TransportationAnswerDate RecordedIn the past 12 months, has lack of transportation kept you from medical appointments or from getting medications?No 05/11/2024Lack of Transportation (Non-Medical)Not on file05/11/2024Housing Stability Vital SignAnswerDate RecordedIn the last 12 months, was there a time when you were not able to pay the mortgage or rent on time?No05/11/2024Number of Times Moved in the Last YearNot on file05/11/2024t any time in the past 12 months, were you homeless or living in a prison (including now)?No05/11/2024 Hunger Vital SignAnswerDate RecordedWithin the past 12 months, you worried that your food would run out before you got the money to buymore.Never true05/11/2024 Ran Out of Food in the Last YearNot on file05/11/2024CommentsNoSex and Gender InformationValueDate RecordedSex Assigned at MvoggFpkeya94/19/2025 3:28 PM EDTLegal UicWputtq51/29/2022 11:12 PM EDTGender CqptkpnpCfyjur63/19/2025 3:28 PM EDTSexual OrientationHeterosexual or Hepmntpr48/19/2025 3:28 PM EDT documented as of this encounter Last Filed Vital Signs Vital SignReadingTime TakenCommentsBlood Fpxvlibv128/6001/17/2025 9:35 AM EDT Anzeh645201/17/2025 9:35 AM EDTTemperature--Respiratory Nulg4588 9:35 AM EDTOxygen Vhcrldjxoi999%01/17/2025 9:35 AM EDTInhaled Oxygen Concentration-- Ioifuh886 kg (241 lb)01/17/2025 7:08 AM LIUNchvmy325.9 cm (5' 1 )01/17/2025 7:08 AM EDTBody Mass Index45.5401/17/2025 7:08 AM EDTdocumented in this encounter Functional Status * QuestionAnswerDate of LnecukzfamJfisjkTK543/6001/17/2025 9:35 AM Emily Alas, ERZmpgk0696/27/2025 9:35 AM Emily Alas RN * Pain Assessment TimerQuestionAnswerDate of AssessmentAuthorRestart Pain Assessment XrolvVjp44/27/2025 7:08 AM Lucrecia Jeronimo RN * Sepsis Model ScoresQuestionAnswerDate of AssessmentAuthorEarly Detection of Sepsis Score3.210 9:46 AM Christina Payne * Pain AssessmentQuestionAnswerDate of AssessmentAuthorPain AssessmentNo/denies pain01/17/2025 7:08 AM Lucrecia Jeronimo RN * QuestionAnswerDate of QgjnfjoxhyBpouqeHW645/6001/17/2025 9:35 AM Emily Alas, TGUczgd8993/27/2025 9:35 AM Emily Alas GROhmy1159/27/2025 9:35 AM Emily Alas DLGzP841054/27/2025 9:35 AM Emily Alas, RN * RespiratoryQuestionAnswerDate of AssessmentAuthorBilateral Breath Sounds Clear;Sjpbhpbxdf05/27/2025 6:56 AM Lucrecia Jeronimo RNRespiratory Effort Flwaietrm27/27/2025 6:56 AM Lucrecia Jeronimo RNRespiratory Depth/Rhythm Jnstzrk4801/17/2025 6:56 AM Lucrecia Jeronimo RNBreath SoundsBilateral breath qaojll0501/17/2025 6:56 AM Lucrecia Jeronimo RN * NeurologicalQuestionAnswerDate of AssessmentAuthorLevel of ConsciousnessAlert 01/17/2025 6:56 AM Lucrecia Jeronimo RNOrientation LevelOriented X41 6:56 AM Lucrecia Jeronimo RNCognitionAppropriate ocdobnopy91/27/2025 6:56 AM Lucrecia Jeronimo RNSpeechClear1 6:56 AM Lucrecia Jeronimo RN * Pain AssessmentQuestionAnswerDate of AssessmentAuthorPain AssessmentNo/denies pain01/17/2025 7:08 AM Lucrecia Jeronimo RN * [place] Suicide Severity Rating ScaleQuestionAnswerDate of AssessmentAuthor1. Have you wished you were or wished you could go to sleep and not wake up?No01/17/2025 6:56 AM Lucrecia Jeronimo RN2. Have you actually had any thoughts of killing yourself?No01/17/2025 6:56 AM Lucrecia Jeronimo RN6. Have you ever done anything, started to do anything, or prepared to do anything to end your life?No01/17/2025 6:56 AM Lucrecia Jeronimo RN * Risk of SuicideAnswerDate of AssessmentAuthorNo Risk01/17/2025 6:56 AM EDT Lucrecia Benavidez RN * Modified AldreteQuestionAnswerDate of VxusjjrgfqJyxbaeDbridiwo434/27/2025 9:42 AM Marcella Ball RNRespiration 9:42 AM Marcella Ball RN Wrylsmotlay295/27/2025 9:42 AM Marcella Ball RNConsciousness 9:42 AM Marcella Ball RNOxygen Vrbyhoivkk232/27/2025 9:42 AM Marcella Ball RNModified Manisha Rceoc5872/27/2025 9:42 AM Marcella Ball RN documented as of this encounter Mental Status * [place] Agitation Sedation ScaleQuestionAnswerEntry DateAuthorRichmond Agitation Sedation Scale (RASS) 9:17 AM Emily Alas RN * Modified AldreteQuestionAnswerEntry VorzEysebzEhdabxxm705/27/2025 9:42 AM Marcella Zaman RNRespiration 9:42 AM Marcella Ball RN Nzhvimyzhen262/27/2025 9:42 AM Marcella Ball RNConsciousness 9:42 AM Marcella Ball RNOxygen Nlpwghshqc877/27/2025 9:42 AM Marcella Ball RNModified Manisha Aafxd9341/27/2025 9:42 AM Marcella Ball RN documented in this encounter Discharge Instructions * Attachments The following attachments cannot be sent through Care Everywhere. * Implantable Loop Recorder Placement Care After (Nigerien) documented in this encounter Medications at Time of Discharge MedicationSigDispense QuantityRefillsLast FilledStart DateEnd Date clopidogrel (Plavix) 75 mg tablet Indications:Coronary artery disease due to lipid rich plaqueTake 1 tablet (75 mg) by mouth in the morning. 90 tablet / dapagliflozin propanediol (Farxiga) 10 mg Indications:heart failure,type 2 diabetes mellitusTake 1 tablet (10 mg) by mouth once daily as directed. 90 tablet / furosemide (Lasix) 40 mg tablet Indications:LOPEZ (dyspnea on exertion)Take 1 tablet (40 mg) by mouth before breakfast. 90 tablet / lamoTRIgine (LaMICtal) 200 mg tablet Take 1 tablet by mouth in the evening. levothyroxine (Synthroid, Levoxyl) 50 mcg tablet Take 50 mcg by mouth before breakfast. magnesium oxide (Mag-Ox) 400 mg tablet Take 400 mg by mouth two times daily. metoprolol succinate XL (Toprol-XL) 25 mg 24 hr tablet Indications:Acute on chronic congestive heart failure, unspecified heart failure type (CMS/HCC)Take 1 tablet (25 mg) by mouth once daily as directed. Do not crush or chew. 90 tablet pyridostigmine (Mestinon) 60 mg tablet Indications:POTS (postural orthostatic tachycardia syndrome)Take 2 tablets (120 mg) by mouth in the morning, at noon, in the evening, and at bedtime. 720 tablet rivaroxaban (Xarelto) 20 mg tablet Take 20 mg by mouth once daily as directed. rosuvastatin (Crestor) 20 mg tablet Indications:Mixed hyperlipidemiaTake 1 tablet (20 mg) by mouth in the morning. 30 tablet 110 sacubitril-valsartan (Entresto) 24-26 mg tablet Indications:Acute on chronic congestive heart failure, unspecified heart failure type (CMS/HCC)Take 0.5 tablets by mouth two times daily. 90 tablet spironolactone (Aldactone) 25 mg tablet Indications:LOPEZ (dyspnea on exertion)Take 1 tablet (25 mg) by mouth in the morning. 90 tablet venlafaxine XR (Effoxor-XR) 150 mg 24 hr capsule Take 2 capsules by mouth in the morning. ondansetron (Zofran) 4 mg tablet Take 8 mg by mouth every 8 (eight) hours if needed.05/31/2024documented as of this encounter H&P Notes * Silvestre Eduardo MD - 01/17/2025 8:29 AM EDT Images from the original note were not included. [place] Electrophysiology Consult Note Reason for visit: Palpitations 01/17/2025 Here for ILR placement. 12/14/24 Patient is here today for a routine 3 month follow up. Patient states she feels ok. Patient states she is still having LOPEZ, SOB, palpitations/pressure/racing heart, occasional lightheadedness/dizziness usually associated with the LOPEZ, SOB. Patient states she is still doing cardiac rehab. Review of Systems Cardiovascular: Positive for chest pain (pressure), dyspnea on exertion, irregular heartbeat and palpitations. Respiratory: Positive for shortness of breath. Neurological: Positive for dizziness and light-headedness. 08/31/2024 Patient is here today for a 2 month follow up for amiodrone load. Patient states she if feeling better with the amiodarone. Patient states she still has palpitations, SOB, LOPEZ, fatigue and leg swelling and can still feel it when she goes into A-Fib. She underwent the cardiac cath on 07/21/2024 and had PCI to distal RCA. Although there were residualstenosis from SVG graft insertion to OM 2 with a 80 to 90% stenosis and the retrograde portion of the LAD had 80% stenosis beyond the FORD graft with evidence of mild pulmonary hypertension with a pressures of 36 mmHg with normal left and right heart filling pressures HPI: Ruma Carlton is a 64 y.o. year old with past medical history of CAD s/p CABG x 3 (Cryo Maze_ LAUREN clip) in November 2023, hypothyroidism, paroxysmal A- fib, diabetes mellitus type 2, hyperlipidemia, tobacco abuse, morbid obesity with a BMI of 51 who has previously been seen by Francie Pedraza. She has endorsed history of ongoing shortness of breath and fatigue as well as accompanying chest discomfort with intermittent palpitations. This has been an ongoing issue with on and off throughout theday and with no specific correlation to activity. As a part of evaluation she was given a 30-day event monitor. 30-day event monitor revealed the presence of atrial tachycardia on 05/20/2024 as well as on 06/08/2024, 06/11/2024 and 06/02/2024. Patient seems to have symptoms associated with this as of related to her activation of the event monitor the irregularity and the appreciation of a P wave makes A-fib lesslikely although cannot be excluded. Occasional PVCs were also seen. PMH: Medical History Past Medical History: Diagnosis Date Abnormal ECG Arrhythmia Atrial fibrillation (CMS/HCC) CHF (congestive heart failure) (CMS/HCC) Coronary artery disease Diabetes mellitus (CMS/HCC) approx 2019 Disease of thyroid gland august 2023 Hyperlipidemia Hypertension unknown, ok now Pulmonary embolism (CMS/HCC) PSH: Surgical History Past Surgical History: Procedure Laterality Date CARDIAC CATHETERIZATION mid CORONARY ARTERY BYPASS GRAFT CORONARY STENT PLACEMENT HAND SURGERY 02/2022 SH: Social Drivers of Health Tobacco Use: Medium Risk (12/14/2024) Patient History Smoking Tobacco Use: Former Smokeless Tobacco Use: Never Passive Exposure: Not on file Alcohol Use: Not on file Financial Resource Strain: Medium Risk (05/11/2024) Overall Financial Resource Strain (CARDIA) Difficulty of Paying Living Expenses: Somewhat hard Food Insecurity: No Food Insecurity (05/11/2024) Hunger Vital Sign Worried About Running Out of Food in the Last Year: Never true Ran Out of Food in the Last Year: Not on file Transportation Needs: No Transportation Needs (05/11/2024) Transportation Lack of Transportation (Medical): No Lack of Transportation (Non-Medical): Not on file Physical Activity: Not on file Stress: Not on file Social Connections: Not on file Intimate Partner Violence: Unknown (05/11/2024) Humiliation, Afraid, Rape, and Kick questionnaire Fear of Current or Ex-Partner: No Emotionally Abused: Not on file Physically Abused: Not on file Sexually Abused: Not on file Depression: Not at risk (01/08/2024) PHQ-2 PHQ-2 Score: 1 Housing Stability: Low Risk (05/11/2024) Housing Stability Vital Sign Unable to Pay for Housing in the Last Year: No Number of Times Moved in the Last Year: Not on file Homeless in the Last Year: No Utilities: Not At Risk (05/11/2024) [facility] Utilities Threatened with loss of utilities: No Health Literacy: Not on file Allergies: Allergies Allergies Allergen Reactions Codeine Other Metoclopramide Unknown Other Reaction(s): Intolerance, involuntary movements, other Metoclopramide Hcl Other Sulfa (Sulfonamide Antibiotics) Other Weight: 107kg Visit Vitals BP 100/62 (BP Location: Left arm, Patient Position: Sitting) Pulse 55 Ht 1.549 m (5' 1 ) Wt 107 kg (235 lb) LMP (LMP Unknown) SpO2 96% BMI 44.40 kg/m?? OB Status Postmenopausal Smoking Status Former BSA 2.15 m?? Meds: Medications Ordered Prior to Encounter Current Outpatient Medications on File Prior to Visit Medication Sig Dispense Refill amiodarone (Pacerone) 200 mg tablet TAKE 2 TABLETS BY MOUTH TWO TIMES DAILY FOR 14 DAYS, THEN 1 TABLET IN THE MORNING. 132 tablet 1 clopidogrel (Plavix) 75 mg tablet Take 1 tablet (75 mg) by mouth in the morning. 90 tablet 3 dapagliflozin propanediol (Farxiga) 10 mg Take 1 tablet (10 mg) by mouth once daily as directed. 90tablet 3 furosemide (Lasix) 40 mg tablet Take 1 tablet (40 mg) by mouth before breakfast. (Patient taking differently: Take 40 mg by mouth two times daily.) 90 tablet 3 lamoTRIgine (LaMICtal) 200 mg tablet Take 1 tablet by mouth in the evening. levothyroxine (Synthroid, Levoxyl) 50 mcg tablet Take 50 mcg by mouth before breakfast. magnesium oxide (Mag-Ox) 400 mg tablet Take 400 mg by mouth two times daily. metoprolol succinate XL (Toprol-XL) 25 mg 24 hr tablet Take 1 tablet (25 mg) by mouth once daily asdirected. Do not crush or chew. 90 tablet 3 ondansetron (Zofran) 4 mg tablet Take 8 mg by mouth every 8 (eight) hours if needed. pyridostigmine (Mestinon) 60 mg tablet Take 2 tablets (120 mg) by mouth in the morning, at noon, inthe evening, and at bedtime. 720 tablet 3 rivaroxaban (Xarelto) 20 mg tablet Take 20 mg by mouth once daily as directed. rosuvastatin (Crestor) 20 mg tablet Take 1 tablet (20 mg) by mouth in the morning. 30 tablet 11 sacubitril-valsartan (Entresto) 24-26 mg tablet Take 0.5 tablets by mouth two times daily. 90 tablet 3 spironolactone (Aldactone) 25 mg tablet Take 1 tablet (25 mg) by mouth in the morning. (Patient taking differently: Take 12.5 mg by mouth in the morning.) 90 tablet 3 venlafaxine XR (Effoxor-XR) 150 mg 24 hr capsule Take 2 capsules by mouth in the morning. aspirin 81 mg EC tablet Take 81 mg by mouth in the morning. (Patient not taking: Reported on 12/14/2024) fluticasone furoate-vilanteroL (Breo Ellipta) 100-25 mcg/dose inhaler Inhale in the morning. (Patient not taking: Reported on 12/14/2024) mirtazapine (Remeron) 15 mg tablet Pt not taking (Patient not taking: Reported on 12/14/2024) No current facility-administered medications on file prior to visit. ROS: Review of Systems Constitutional: Positive for malaise/fatigue. Cardiovascular: Positive for dyspnea on exertion, irregular heartbeat, leg swelling (left more thanright) and palpitations. Respiratory: Positive for shortness of breath. Physical Exam: Constitutional General Appearance: well-nourished, well-developed, appears stated age Level of Distress: comfortable Eyes HOLDEN Neck Neck: supple, trachea midline Carotid Arteries: bilateral normal upstroke, no bruits Jugular Veins: normal jugular venous pressure Thyroid: not enlarged Lungs Respiratory Effort: unlabored Chest Exam: normal curvature, no thoracic deformity Auscultation: clear, no wheezing, no rales, no rhonchi Cardiovascular Chest wall: Rate And Rhythm: regular Heart Sounds: normal S1, normal s2, no gallop Systolic Murmur: not heard Diastolic Murmur: not heard Extremities: no cyanosis, no edema, no peripheral signs of emboli Peripheral Pulses Radial Pulse: normal Abdomen Inspection and Palpation: soft, non distended, no bruit, non tender Neurologic Gait: normal gait Labs: @LABRESULTS@ Lab Results Component Value Date HDL 48 12/05/2023 LDL CALC 95 12/05/2023 TRIGLYCERIDES 157 (H) 12/05/2023 TRIGLYCERIDES FL 25 12/24/2023 TSH 5.49 12/18/2023 BNP 537 (H) 05/11/2024 BNP 506 (H) 12/05/2023 EKG: Encounter Date: 07/21/24 ECG 12 lead Result Value Ventricular Rate 47 Atrial Rate 47 RI Interval 172 QRS DURATION 102 QT Interval 532 QTC CALCULATION(BAZETT) 470 P Page 79 R-Page 91 T Wave Page 74 Impression Sinus bradycardia Possible Right ventricular hypertrophy Septal infarct (cited on or before 15-DEC-2023) Abnormal ECG When compared with ECG of 21-JUL-2024 10:30, Incomplete right bundle branch block is no longer Present Questionable change in initial forces of Septal leads Confirmed by Cherrie MCFARLAND, LUZ MARIA Granados ([id number]) on 07/21/2024 9:30:28 PM Echo: Stress test: Encounter Date: 05/11/24 ECG 12 lead Result Value Ventricular Rate 105 Atrial Rate 120 RI Interval 200 QRS DURATION 90 QT Interval 368 QTC CALCULATION(BAZETT) 486 P Page 70 R-Page 99 T Wave Page 83 Impression Sinus tachycardia Possible Right ventricular hypertrophy Nonspecific ST abnormality Abnormal ECG When compared with ECG of 15-DEC-2023 18:05, Sinus rhythm has replaced Junctional rhythm Criteria for Septal infarct are no longer Present ST now depressed in Lateral T wave inversion no longer evident in Inferior lead T wave inversion no longer evident in Anterolateral leads Confirmed by Cherrie MCFARLAND, LUZ MARIA Granados ([id number]) on 05/12/2024 9:26:09 AM ECHO 05/12/2024 Left Ventricle: The left ventricle is normal size. Global left ventricular systolic function is normal. The EF is 60 % visually. Left ventricular wall thickness is normal. No regional wall motion abnormality. Normal diastolic function. Concentric cardiac remodeling. Right Ventricle: The right ventricle is normal in size. Normal right ventricular systolic function. Unable to assess right sided pressures due to lack of measurable tricuspid regurgitation. Left Atrium: The left atrium is normal in size. Right Atrium: The right atrium is mildly enlarged. Overall Conclusions: Due to suboptimal imaging Lumason contrast was administered for opacification and better delineation of endocardial borders. Coronary angiogram: Cardiac Cath Report 07/21/24 Final Impression: 1) The sequential vein graft to OM1 and the PDA is occluded 2) Successful drug eluting stent placement distal RCA from 90 to 0% 3) The OM2 has tandem 80 and 90% stenoses proximally and at the vein graft insertion site, this wasnot treated. 4) The FORD graft to LAD is patent however, the retrograde portion of the LAD has an 80% stenosis. 5) Mild pulmonary hypertension (systolic 36 mmHg) with normal L and R heart filling pressures Recommendations: 1) Aspirin for a week, plavix for a minimum of 6-months and eliquis indefinitely 2) If symptoms don't improve consider PCI of OM2 Procedures Performed: right and left heart catheterization, mammary and coronary angiography, PCI RCA, conscious sedation, ultrasound guidance for vascular access, Perclose placement Hemodynamic Data: RA: 8/6/4 mmHg RV: 36/8 mmHg PA: 36/12/23 mmHg PCWP: 10/10/8 mmHg LV: 107/9 mmHg AO: 107/53/75 mmHg CO: 4.82 L/min CI: 2.33 L/min/m2 O2 Sat: PA sat: 67% AO sat: 94% Coronary Angiogram: Left main: Normal LAD: Proximally occluded FORD graft to LAD: widely patent. The retrograde portion of the LAD has an 80% stenosis and supplies the mid-vessel septals and diagonal branch LCX: The second obtuse marginal has a proximal long 80% stenosis and a 90% at the proximal portion of the SVG touchdown. The SVG has no flow in it. RCA: There is moderate atherosclerosis throughout the proximal and mid vessel. The distal vessel had a long 90% stenosis which was reduced to 0% after a single drug eluting stent. 12/08/2023 Performing Physicians: -Daniela Jason MD Assistants: Dr Carolyn Ordonez. Procedures Performed: -Bilateral selective coronary angiography -Right heart catheterization -Left heart catheterization -Ultrasound guided vascular access -Conscious sedation Final Impressions: -Severe cheesh-na 3 V CAD -Mildly elevated right sided pressures (mean PA 25 mmHg) -Elevated LVEDP (24 mmHg) -CO 4.65, CI 2.12 Recommendations: -Aspirin 81 mg daily and high intensity statin therapy -CT surgical consultation for possible CABG -Will admit to hospital given progressive symptoms -Optimization of medical management -Aggressive risk factor modification -Further recs as per inpatient cardiology consult service and CT surgery ECHO 12/08/2023 Left Ventricle: Probable small thrombus noted in apex of left ventricle. The left ventricle is normal size. Global left ventricular systolic function is moderately reduced. EF range is estimated at 40 % -45 %. Left ventricular wall thickness is at upper normal limits. Regional wall motion abnormalities (see diagram). Apical hypokinesis noted. Unable to assess diastolic dysfunction. Concentric cardiac remodeling. Right Ventricle: The right ventricle appears normal in size. Right ventricular systolic function appears normal. Left Atrium: The left atrium is normal in size. Overall Conclusions: Due to suboptimal imaging, Lumason contrast was administered for better delineation of the left ventricular apex PFT 11/26/24 Assessment and Plan: SVT/?AF: Previously event monitor shows evidence of atrial arrhythmia that is more reflective of either atrial tachycardia versus atrial Flutter. The appreciation of a well-formed P wave makes A-fib less likely. Patient is currently on DOAC as well as on metoprolol 25 mg XL. Continues to have palpitations sometimes fairly regularly. At this stage we will stop amiodarone and offered loop for further symptom EKG correlation. PFT revealed evidence of lung disease and so amiodarone is not a suitable choice. If needed we can consider class III agents Silvestre Eduardo MD PGY-6 [employer] Guard Supervisor [facility] Pager # [phone] Cosigned by Konrad Campoverde MD at 01/17/2025 9:34 AM EDT Associated attestation - Konrad Campoverde MD - 01/17/2025 9:34 AM EDT By using the attestations below, the signing clinician agrees that I have read and verify that thedocumentation has been personally reviewed by me and ensure that the documentation accurately reflects the encounter. GC: I performed the sevilla portion(s) of the service and participated in the management and confirm the resident's documentation. Please note there may be an additional personal documentation from me. documented in this encounter Nursing Notes * Marcella Barraza RN - 01/17/2025 9:43 AM EDT RN educated pt on d/c instructions. This included: site care, limited physical activity, resume normal diet, future appointments, medications, and moderate sedation instructions. RN educated pt on when to notify physician and when to go to the hospital. RN educated pt on importance of removing dressing in 5 days after the procedure and monitoring sitefor infection. RN encouraged pt to voice any questions or concerns, and answered any questions or concerns if pt verbalized. Pt was wheeled off of unit with all of belongings. documented in this encounter Plan of Treatment NameTypePriorityAssociated DiagnosesDate/TimeElectrophysiology procedure ElectrophysiologyRoutine Palpitations 01/17/2025 9:33 AM EDTdocumented as of this encounter Procedures Procedure NamePriorityDate/TimeAssociated DiagnosisCommentsLOOP INSERTIONRoutine 01/17/2025 9:33 AM EDT Palpitations Procedure Note - Konrad Campoverde MD - 01/17/2025 9:33 AM EDT This note is in progress. LOOP IMPLANT PROCEDURE NOTE DATE OF PROCEDURE: PERFORMING PHYSICIAN: Dr. Silvestre Eduardo/ Dr. Konrad Campoverde INDICATIONS FOR PROCEDURE: 1. SVT/AF surveillance CONSENT: Patient LOCATION: EP lab PROCEDURAL SEDATION: None FLUOROSCOPY TIME: 0min PREPARATION: Preoperative antibiotics was administered. EBL:5cc SPECIMEN REMOVED: None PROCEDURES PERFORMED: 1. LOOP implant PROCEDURE NOTE: Patient was brought to the EP lab in the post absorptive state. Aprocedural pause was performed verifying the patient, the procedure.Sterile prep and drape were performed over the left precordium andanesthesia with 1% lidocaine was followed by a small incision was made inthe 3rd intercostal space near the sternum on the left using the [employer] tool. The loop recorder was then injected subcutaneously andnoted to have good sensing parameters. Technical details of the device asnoted below. The skin was then closed with 3-0 absorbable monofilamentsuture and glue applied to hold the edges together. Tegaderm was appliedto cover the wound. The patient appeared to tolerate the procedure welland was returned to the room in stable condition. No complications wereimmediately observed. Sensing: mV. IMPRESSION: Successful placement of LOOP implant with excellent sensing parameters. COMPLICATIONS: None RECOMMENDATIONS: 1. Occlusive dressing to be changed after 7 days. 2. Do not wet the incision. Konrad Campoverde MD Cardiac Electrophysiology. documented in this encounter Visit Diagnoses Diagnosis Palpitations- Primary Palpitations documented in this encounter Admitting Diagnoses Diagnosis Palpitations documented in this encounter Administered Medications Medication OrderMAR ActionAction DateDoseRateSite amoxicillin (Amoxil) capsule 1,000 mg 1,000 mg, oral, Once, On Fri01/17/25 at 0700, For 1 dose, Preprocedure, Suspected Indication (Select all that apply): Surgical Prophylaxis Given01/17/2025 7:00 AM EDT1,000 mgdocumented in this encounter Active and Recently Administered Medications Times are shown in EDT.Medication Order// amoxicillin (Amoxil) capsule 1,000 mg (COMPLETED) 1,000 mg, oral, Once, On Fri01/17/25 at 0700, For 1 dose, Preprocedure, Suspected Indication (Select all that apply): Surgical Prophylaxis * 0700 (Given - Provider: Lucrecia Benavidez RN) Medication Order// lidocaine (PF) (Xylocaine) 10 mg/mL (1 %) injection (CANCELED) As needed, Starting on Fri01/17/25 at 0929, Intraprocedure * 0929 (Given - Provider: Silvestre Eduardo MD) documented in this encounter Care Teams Team MemberRelationshipSpecialtyStart DateEnd Date Merissa Mayfield MD [address] [facility] #A PCP - Vvrifhy33/1/22documented as of this encounter
--- OUTSIDE RECORDS SUMMARY | 2025-01-17 07:30 | XMS_ITS | Encounter Summary ---
Author Organization [facility] Address [address] [place] [address] Care Team Providers Care Service Learning Coordinator Name Role Phone Merissa Mayfield MD Primary Care Provider [phone] Reason for Visit * Auth/Cert (Routine)SpecialtyDiagnoses / ProceduresReferred By ContactReferred To Contact Diagnoses Palpitations Palpitations [R00.2] Procedures AL INSERTION SUBQ CARDIAC RHYTHM MONITOR W/PRGRMG Loop insertion Konrad Campoverde MD [address] [place] [address] Phone: tel: fax: [facility] [address] [place] [address] Phone: tel: fax: Referral IDStatusReasonStart DateExpiration DateVisits RequestedVisits [id number] Encounter Details DateTypeDepartmentCare Team (Latest Contact Info)Mbagsejvfcv66/27/2025 8:30 AM EDT - 01/17/2025 8:50 AM EDTSurgery [facility] [address] [place] [address] Konrad Campoverde MD [address] [place] [address] Loop insertion [59135 (CPT??)] Social History Tobacco UseTypesPacks/DayYears UsedDateSmoking Tobacco: VueqftUnlzzkbcxx232 Smokeless Tobacco: NeverAlcohol UseStandard Drinks/WeekCommentsYes0 (1 standard drink = 0.6 oz pure alcohol)maybe every 2 or 3 months I [facility] UtilitiesAnswerDate RecordedIn the past 12 months [...] care, and heating?Somewhat hard05/11/2024PHQ-2AnswerDate RecordedPatient Health Questionnaire-2 Axubh720UT Safety & Environment AnswerDate RecordedWithin the last [...] were you homeless or living in a senior living (including now)?No05/11/2024 Hunger Vital SignAnswerDate RecordedWithin the past 12 months, you worried that your food would run out before you got the money to buymore.Never true05/11/2024 Ran Out of Food in the Last YearNot on file05/11/2024CommentsNoSex and Gender InformationValueDate RecordedSex Assigned at IoyayGolumw26/19/2025 3:28 PM EDTLegal DzbXngmtp02/29/2022 11:12 PM EDTGender XrckslybJhfxgu52/19/2025 3:28 PM EDTSexual OrientationHeterosexual or Ywugjnod41/19/2025 3:28 PM EDTdocumented as of this encounter Last Filed Vital Signs Vital SignReadingTime TakenCommentsBlood Mlkvnons896/ 7:08 AM EDT Xguhj532201/17/2025 7:08 AM EDTTemperature--Respiratory Uztg2910 7:08 AM EDTOxygen Fxnskqggnf85%01/17/2025 7:08 AM EDTInhaled Oxygen Concentration-- Glgvsc436 kg (241 lb)01/17/2025 7:08 AM WECYyevtb141.9 cm (5' 1 )01/17/2025 7:08 AM EDTBody Mass Index45.5401/17/2025 7:08 AM EDTdocumented in this encounter Functional Status * QuestionAnswerDate of WaolsiwnpiEzyjmoIX906/6701/17/2025 7:08 AM Lucrecia Jeronimo RNPulse5301/17/2025 7:08 AM Lucrecia Jeronimo RN * Pain Assessment TimerQuestionAnswerDate of AssessmentAuthorRestart Pain Assessment PihilIox23/27/2025 7:08 AM Lucrecia Jeronimo RN * Sepsis Model ScoresQuestionAnswerDate of AssessmentAuthorEarly Detection of Sepsis Rpbeu518 8:46 AM Christina Payne * Pain AssessmentQuestionAnswerDate of AssessmentAuthorPain AssessmentNo/denies pain01/17/2025 7:08 AM Lucrecia Jeronimo RN * QuestionAnswerDate of GvsiedelcpLrrdazMR324/6701/17/2025 7:08 AM Lucrecia Jeronimo, HHXxpkn5305/27/2025 7:08 AM Lucrecia Jeronimo OHNgyx4151/27/2025 7:08 AM Lucrecia Jeronimo BDYhA46413/27/2025 7:08 AM Lucrecia Jeronimo RN * RespiratoryQuestionAnswerDate of AssessmentAuthorBilateral Breath Sounds Clear;Loerozuyoh54/27/2025 6:56 AM Lucrecia Jeronimo RNRespiratory Effort Zbkmmqqcl69/27/2025 6:56 AM Lucrecia Jeronimo RNRespiratory Depth/Rhythm Njdzlrz4101/17/2025 6:56 AM Lucrecia Jeronimo RNBreath SoundsBilateral breath xpnfmp9901/17/2025 6:56 AM Lucrecia Jeronimo RN * NeurologicalQuestionAnswerDate of AssessmentAuthorLevel of ConsciousnessAlert 01/17/2025 6:56 AM Lucrecia Jeronimo RNOrientation LevelOriented X41 6:56 AM Lucrecia Jeronimo RNCognitionAppropriate phmuetoip02/27/2025 6:56 AM Lucrecia Jeronimo RNSpeechClear1 6:56 AM Lucrecia Jeronimo RN * Pain AssessmentQuestionAnswerDate of AssessmentAuthorPain AssessmentNo/denies pain01/17/2025 7:08 AM Lucrecia Jeronimo RN * [place] Suicide Severity Rating ScaleQuestionAnswerDate of AssessmentAuthor1. Have you wished you were or wished you could go to sleep and not wake up? No01/17/2025 6:56 AM Lucrecia Jeronimo RN2. Have you actually had any thoughts of killing yourself?No01/17/2025 6:56 AM Lucrecia Jeronimo RN6. Have you ever done anything, started to do anything, or prepared to do anything to end your life?No01/17/2025 6:56 AM Lucrecia Jeronimo RN * Risk of SuicideAnswerDate of AssessmentAuthorNo Risk01/17/2025 6:56 AM EDT Lucrecia Benavidez RN * Modified AldreteQuestionAnswerDate of PiiwhownaaWwvinhSnrjhood415/27/2025 6:56 AM Lucrecia Jeronimo RNRespiration 6:56 AM Lucrecia Jeronimo RN Vuebftcwlhl009/27/2025 6:56 AM Lucrecia Jeronimo RNConsciousness 6:56 AM Lucrecia Jeronimo RNOxygen Pvrhdhmzst266/27/2025 6:56 AM Lucrecia Jeronimo RNModified Manisha Deeyc8729/27/2025 6:56 AM Lucrecia Jeronimo RN documented as of this encounter Mental Status * Modified AldreteQuestionAnswerEntry OggcSzxrqtJqmlpyca065/27/2025 6:56 AM EDT Lucrecia Benavidez RNRespiration 6:56 AM Lucrecia Jeronimo RN Ivzjgljjkuz804/27/2025 6:56 AM Lucrecia Jeronimo RNConsciousness 6:56 AM Lucrecia Jeronimo RNOxygen Flhbgyatmx235/27/2025 6:56 AM Lucrecia Jeronimo RNModified Manisha Mkrtm7733/27/2025 6:56 AM Lucrecia Jeronimo RN documented in this encounter Discharge Instructions * Attachments The following attachments cannot be sent through Care Everywhere. * Implantable Loop Recorder Placement Care After (Malay) documented in this encounter Medications at Time of Discharge MedicationSigDispense QuantityRefillsLast FilledStart DateEnd Date clopidogrel (Plavix) 75 mg tablet Indications:Coronary artery disease due to lipid rich plaqueTake 1 tablet (75 mg) by mouth in the morning. 90 tablet dapagliflozin propanediol (Farxiga) 10 mg Indications:heart failure,type 2 diabetes mellitusTake 1 tablet (10 mg) by mouth once daily as directed. 90 tablet furosemide (Lasix) 40 mg tablet Indications:LOPEZ (dyspnea on exertion)Take 1 tablet (40 mg) by mouth before breakfast. 90 tablet lamoTRIgine (LaMICtal) 200 mg tablet Take 1 [...] by mouth in the morning. 30 tablet sacubitril-valsartan (Entresto) 24-26 mg tablet Indications:Acute on [...] from the original note were not included. [place] Electrophysiology Consult Note Reason for visit: Palpitations [...] Year: No Utilities: Not At Risk (05/11/2024) [facility] Utilities Threatened with loss of utilities: [...] Value Ventricular Rate 47 Atrial Rate 47 AL Interval 172 QRS DURATION 102 QT Interval 532 QTC CALCULATION(BAZETT) 470 P Shushan 79 R-Shushan 91 T Wave Shushan 74 Impression Sinus bradycardia Possible Right ventricular [...] Value Ventricular Rate 105 Atrial Rate 120 AL Interval 200 QRS DURATION 90 QT Interval 368 QTC CALCULATION(BAZETT) 486 P Shushan 70 R-Shushan 99 T Wave Shushan 83 Impression Sinus tachycardia Possible Right ventricular [...] for opacification and better delineation of endocardial borders . Coronary angiogram: Cardiac Cath Report 07/21/24 Final [...] vascular access -Conscious sedation Final Impressions: -Severe [place] 3 V CAD -Mildly elevated right sided [...] class III agents Silvestre Eduardo MD PGY-6 Supervisor Telephone Clerks [facility] Pager # [phone] Cosigned by Konrad Campoverde MD at 01/17/2025 [...] the sternum on the left using the [employer] tool. The loop recorder was then injected [...] apply): Surgical Prophylaxis Given01/17/2025 7:00 AM EDT1,000 mg lidocaine (PF) (Xylocaine) 10 mg/mL (1 %) injection As needed, Starting on Fri01/17/25 at 0929, Intraprocedure Given01/17/2025 9:29 AM EDT30 mLdocumented in this encounter Active and Recently Administered [...] MemberRelationshipSpecialtyStart DateEnd Date Merissa Mayfield MD [address] [facility] #A PCP - Byajykx87/1/22documented as of this encounter
--- OUTSIDE RECORDS SUMMARY | 2025-01-27 21:00 | XMS_ITS | Encounter Summary ---
Author Organization [facility] Address [address] [place] [address] Care Team Providers Care Deaf Teacher Name Role Phone Merissa Mayfield MD Primary Care Provider [phone] Encounter Details DateTypeDepartmentCare Team (Latest Contact Info)Eonujxoqvtv86/27/2025Travel Social History Tobacco UseTypesPacks/DayYears UsedDateSmoking Tobacco: KtrcomDddtzvslrf578 Smokeless Tobacco: NeverAlcohol UseStandard Drinks/WeekCommentsYes0 (1 standard [...] care, and heating?Somewhat hard05/11/2024PHQ-2AnswerDate RecordedPatient Health Questionnaire-2 Fkqxo309UT Safety & Environment AnswerDate RecordedWithin the last [...] were you homeless or living in a alf (including now)?No05/11/2024 Hunger Vital SignAnswerDate RecordedWithin the past 12 months, you worried that your food would run out before you got the money to buymore.Never true05/11/2024 Ran Out of Food in the Last YearNot on file05/11/2024CommentsNoSex and Gender InformationValueDate RecordedSex Assigned at DtbhqIqjetn21/19/2025 3:28 PM EDTLegal GaxBtzeyi94/29/2022 11:12 PM EDTGender IyvudtyhZpovse25/19/2025 3:28 PM EDTSexual OrientationHeterosexual or Qxthmsyr15/19/2025 3:28 PM EDTdocumented as of this encounter Functional Status * QuestionAnswerDate of NlbqdybsltOcpyvfPE812/6001/17/2025 9:35 AM Emily Alas, IPJgmnc7119/27/2025 9:35 AM Emily Alas RN * Pain Assessment TimerQuestionAnswerDate of AssessmentAuthorRestart Pain Assessment DcbjgQsw59/27/2025 7:08 AM Lucrecia Jeronimo RN * Sepsis Model ScoresQuestionAnswerDate of AssessmentAuthorEarly Detection of Sepsis Score3. 9:46 AM Christina Payne * Pain AssessmentQuestionAnswerDate of AssessmentAuthorPain AssessmentNo/denies pain01/17/2025 7:08 AM Lucrecia Jeronimo RN * QuestionAnswerDate of QsacivovtuUobpenTP126/6001/17/2025 9:35 AM Emily Alas, BDLvkji8420/27/2025 9:35 AM Emily Alas OIDasy4625/27/2025 9:35 AM Emily Alas RMGqC639368/27/2025 9:35 AM Emily Alas RN * RespiratoryQuestionAnswerDate of AssessmentAuthorBilateral Breath Sounds Clear;Ofbmspsfuv48/27/2025 6:56 AM Lucrecia Jeronimo RNRespiratory Effort Gzfhjofow28/27/2025 6:56 AM Lucrecia Jeronimo RNRespiratory Depth/Rhythm Osuiwxn6701/17/2025 6:56 AM Lucrecia Jeronimo RNBreath SoundsBilateral breath hewwwi5801/17/2025 6:56 AM Lucrecia Jeronimo RN * NeurologicalQuestionAnswerDate of AssessmentAuthorLevel of ConsciousnessAlert 01/17/2025 6:56 AM Lucrecia Jeronimo RNOrientation LevelOriented X41 6:56 AM Lucrecia Jeronimo RNCognitionAppropriate qpjmwvyky92/27/2025 6:56 AM Lucrecia Jeronimo RNSpeechClear1 6:56 AM Lucrecia Jeronimo RN * Pain AssessmentQuestionAnswerDate of AssessmentAuthorPain AssessmentNo/denies pain01/17/2025 7:08 AM Lucrecia Jeronimo RN * [place] Suicide Severity Rating ScaleQuestionAnswerDate of AssessmentAuthor1. Have [...] Lucrecia Pitts RN * Modified AldreteQuestionAnswerDate of CoiadghqjbTrtjquSfzmufsi094/27/2025 9:42 AM Marcella Ball RNRespiration 9:42 AM Marcella Ball RN Fjmmkinalwu055/27/2025 9:42 AM Marcella Ball HPShozswhxfgncb555/27/2025 9:42 AM Marcella Ball RNOxygen Ircmkljyed770/27/2025 9:42 AM Marcella Ball RNModified Manisha Mnrec2876/27/2025 9:42 AM Marcella Ball RN documented as of this encounter Mental Status * [place] Agitation Sedation ScaleQuestionAnswerEntry DateAutrRichmond Agitation Sedation Scale (RASS) 9:17 AM Emily Alas RN * Modified AldreteQuestionAnswerEntry TiovNtjznbEhksehcf854/27/2025 9:42 AM Marcella Zaman RNRespiration 9:42 AM Marcella Ball RN Mdftormtktu444/27/2025 9:42 AM Marcella Ball VKOtgzlnncgelpf681/27/2025 9:42 AM Marcella Ball, RNOxygen Ltzhcaphme827/27/2025 9:42 AM Marcella Ball RNModified Manisha Gffwc8121/27/2025 9:42 AM Marcella Ball, JULIANA documented in this encounter Plan of Treatment Not on file documented as of this encounter Visit Diagnoses Not on filedocumented in this encounter Care Teams Team MemberRelationshipSpecialtyStart DateEnd Date Merissa Mayfield MD [facility] #A PCP - Thqiqrj63/1/22documented as of this encounter
--- OUTSIDE RECORDS SUMMARY | 2025-01-27 21:00 | XMS_ITS | CCD ---
Author Organization [facility] Care Team Providers Care Payroll Tax Analyst Name Role Phone Anibal Chaudhary Primary Care Provider Sidra Potter Attending Provider [phone] ANIBAL CHAUDHARY Primary Care Physician Anibal Chaudhary [...] Unavailable MD Anibal Chaudhary Primary Care Provider [phone] MD Froilan Brown Admit Provider MD Petr Kowalski Attending Provider MD Anibal Chaudhary Primary Care Provider MD Froilan Brown Admit Provider MD Petr Kowalski Attending Provider Community, Outreach Attending Provider [phone] MD Anibal Chaudhary Primary Care Provider YANY [...] Fernandez Attending Provider ROCKY Navarro Attending Provider NON STAFF Primary Care Provider UnavailAnibal Luna MD Primary Care Provider Milo FRIEDMAN-Darryl Hall Attending Provider Anibal Chaudhary MD Attending Provider [phone] Ramy Santacruz MD Attending Provider Anibal Chaudhary MD Primary Care Provider ElmellohawAl sosa Attending Provider Anibal Chaudhary Primary Care Unavailable Ramy Santacruz Attending Unavailable Ramy Santacruz Admitting Unavailable MARCELLO WAGNER Admitting Unavailable MARCELLO WAGNER Attending Unavailable CAMILO, YASH Referring Unavailable KENDELL GALLARDO Referring Unavailable KONRAD ADAMS Attending Unavailable ELMELLOHAWAL [...] Unavailable Anibal Chaudhary MD Primary Care Provider Allergies Allergy ClassificationReported Allergen(s)Allergy TypeDate of OnsetReaction(s) FacilityUnclassified (1 source)[facility] ([facility] sources)CodeineDrug AllergyUnknownNorth Coast [facility] Other (20 sources)Metoclopramide; Translations: [METOCLOPRAMIDE]Drug Xkcemuj33-28-6914 [facility], [facility] (13 sources)Sulfamethoxazole / TrimethoprimDrug AllergyUnkRhode Island Hospital [facility] Other (13 sources)Sulfonamides (Antibiotic)Drug allergyManhattan Psychiatric Center [facility] Other (15 sources)Codeine; Translations: [CODEINE]Drug Diworcp08-91-6364WiuyhLtn [facility] (1 source)IothalamateDrug Xeexfwf38-50-5372[facility] (1 source)MorphineDrug Dfllnia06-04-5252WwuSelect [facility] (1 source)Sulfonamides (Antibiotic)Drug allergy (disorder)27-86-3825SxwSelect [facility] (6 sources)CodeineDrug Tcxlgfe62-15-1871NbrrtdjWGXK Healthcare (17 sources)Sulfonamides (Antibiotic); Translations: [Sulfa (Sulfonamide Antibiotics)]Allergy to kzhehyned17-71-3123Fredy, [facility] (14 sources)Sulfamethoxazole; Translations: [sulfamethoxazole]Drug Allergy 18-25-6155JareiCpshhwvdwMem[facility] (14 sources)Trimethoprim; Translations: [trimethoprim]Drug Mosnupa75-41-6378 [facility] (1 source)CodeineDrug Irwmeyx21-00-2152LltmsrfhcEast [facility] (1 source)MetoclopramideDrug Bddazly97-52-1879UabbtxmgmEast [facility] (1 source)Metoclopramide; Translations: [METOCLOPRAMIDE HCL]Drug Allergy 57-45-2888VyljextaaaOhio [facility] (1 source)Sulfonamides (Antibiotic)Drug Tqfdcdz28-38-0194NakvxfwB[facility] Medications Current Medications MedicationDrug Class(es)DatesSig (Normalized)Sig (Original)acetaminophen 325 mg / HYDROcodone bitartrate 5 mg oral tablet (20 sources)Opioid AgonistStart: 05-08-2023 End: 17-39-5039xzzm 1 tablet by mouth every six hours as needed for pain HYDROcodone-acetaminophen (Randolph) 5-325 MG tablet TAKE 1 TABLET BY MOUTH EVERY 6 HOURS NEEDED FOR PAIN FOR 7 DAYS 05/08/2023 ActiveStart: 26-83-0419ftnf 1 tablet by mouth every six hoursHYDROcodone-Acetaminophen 5-325 MG 1 tablet as needed Orally every 6 hrs for 7 days Jan, ActiveStart: 60-51-7544bvap 1 tablet by mouth every six hoursHYDROcodone-Acetaminophen 5-325 MG 1 tablet as needed Orally every 6 hrs for 30 days pt will pay out of pocket for entire amount Aug, ActiveStart: 19-64-2654pwha 1 tablet by mouth every six hoursHYDROcodone-Acetaminophen 5-325 MG 1 tablet as needed Orally every 6 hrs for 30 days Apr, Zxsvfn33 hr amphetamine aspartate 2.5 mg / amphetamine sulfate 2.5 mg / dextroamphetamine saccharate 2.5 mg / dextroamphetamine sulfate 2.5 mg extended release oral capsule (2 sources)Central Nervous System StimulantStart: 32-93-8823ilnb 1 capsule by mouth every twenty-four hoursAdderall XR 10 MG 1 capsule in the morning Orally Once a day for 30 days Dec, ActivebusPIRone hydrochloride 10 mg oral tablet (20 sources)Start: 05-08-2023 End: 22-78-7665lhok 1 tablet by mouth in the morningbusPIRone (Buspar) 10 MG tablet Take 10 mg by mouth in the morning and 10 mg before bedtime. 05/08/2023 Activeclopidogrel 75 mg oral tablet (3 sources)P2Y12 Platelet InhibitorStart: 69-05-9164bpvs 1 tablet by mouth once dailydapagliflozin 10 mg oral tablet (4 sources)Sodium-Glucose Cotransporter 2 InhibitorStart: 03-20-8024osut 1 tablet by mouth once dailyfamotidine 20 mg oral tablet (1 source)Histamine-2 Receptor Antagonistfamotidine (Pepcid) 20 MG tablet Take by mouth Activefurosemide 40 mg oral tablet (7 sources)Loop DiureticStart: 96-13-6357dkfx 1 tablet by mouth twice daily Start: 01-22-2024 End: 67-16-9298ezzm 1 tablet by mouth once dailyFurosemide 40 mg tablet Discontinued 40 MG PO Daily January 22, 2024 12:00am December 22, 2024 3:31pm lamoTRIgine 200 mg oral tablet (20 sources)Mood Stabilizer, Anti-epileptic AgentStart: 94-61-0361jkhz 1 tablet by mouth once dailyStart: 46-11-9352uplm 150 mg by mouth once dailyLamotrigine Active 150 MG PO Daily May 20, 2018 3:39pmStart: 05-20-2018 End: 56-86-3182Aqcxpfiopvm 150 mg tablet Discontinued 200 MG PO Daily May 20, 2018 1:00am July 10, 2023 1:44pmStart: 05-20-2018 End: 98-87-2712pthg 200 mg by mouth once dailyLamotrigine Discontinued 200 MG PO Daily May 20, 2018 1:00am July 10, 2023 1:44pmtake 1 tablet by mouth every twenty-four hourslamoTRIgine 200 MG 1 tablet Orally Once a day for 90 days Activelevothyroxine sodium 0.075 mg oral tablet (20 sources)l-ThyroxineStart: 53-08-4852tluf 1 tablet by mouth once dailyStart: 08-20-2023 End: 11-72-0034hbpl 1 tablet by mouth once dailyLevothyroxine 50 mcg tablet Discontinued 50 MCG PO Daily October 30, 2023 4:21pm March 5:40pm24 hr metoprolol succinate 25 mg extended release oral tablet (20 sources)beta-Adrenergic BlockerStart: 71-92-1526rfkq 1 tablet by mouth once dailyStart: 01-22-2024 End: 86-20-0378Qtetbhstuf Tartrate 25 mg tablet Discontinued 12.5 MG PO Daily January 22, 2024 12:00am May 28, 2024 12:40pmStart: 64-70-8755lvaj 12.5 mg by mouth once dailyMetoprolol Tartrate Active 12.5 MG PO Daily January 22, 2024 12:00amStart: 74-57-1560amgf 1 tablet by mouth once dailymetoprolol succinate XL (Toprol-XL) 50 MG 24 hr tablet Take 1 tablet by mouth Daily 02/07/2023 ActiveStart: 55-74-4599dknv 100 mg by mouth once dailyMetoprolol Succinate Active 100 MG PO Daily May 20, 2018 3:39pmStart: 05-20-2018 End: 29-20-5555acsu 2 tablets by mouth once dailyMetoprolol Succinate 100 mg tablet extended release 24 hr Discontinued 50 MG PO Daily May 20, 2018 1:00am January 22, 2024 10:11amStart: 05-20-2018 End: 96-52-7506ulms 50 mg by mouth once dailyMetoprolol Succinate Discontinued 50 MG PO Daily May 20, 2018 1:00am January 22, 2024 10:11amMetoprolol Tartrate Not-Takingmidodrine hydrochloride 2.5 mg oral tablet (3 sources)alpha-Adrenergic Agonisttake 1 tablet by mouth every eight hours Midodrine HCl 2.5 MG 1 tablet three times a day Activepyridostigmine bromide 60 mg oral tablet (20 sources)Start: 38-83-8416xdpa 2 tablets by mouth four times dailyStart: 12-24-2022 End: 91-63-9335Kzczrfhqabhgkh [place] 180 mg Tablet Extended Release Discontinued 120 MG PO Daily December 24, 2022 12:00am December 24, 2022 8:13am Start: 12-24-2022 End: 13-87-8396lgmw 2 tablets by mouth twice dailyPyridostigmine [place] 60 mg Tablet Discontinued 120 MG PO Twice daily 0 0 December 24, 2022 12:00am May 08, 2023 4:09pmStart: 93-97-3788wmxu 120 mg by mouth four times daily Pyridostigmine [place] Active 120 MG PO Four times daily December 24, 2022 12:00amStart: 12-24-2022 End: 36-63-4786yoye 120 mg by mouth once dailyPyridostigmine [place] Discontinued 120 MG PO Daily December 24, 2022 12:00am December 24, 2022 8:13am Start: 12-24-2022 End: 38-97-8395fert 120 mg by mouth twice dailyPyridostigmine [place] Discontinued 120 MG PO Twice daily 0 December 24, 2022 12:00am May 08, 2023 4:09pmpyridostigmine (Mestinon) 60 MG tablet Take by mouth Active rivaroxaban 20 mg oral tablet (20 sources)Factor Xa InhibitorStart: 23-47-2470hmjt 1 tablet by mouth once dailyStart: 10-22-2023 End: 15-56-7748colh 1 tablet by mouth once dailyRivaroxaban (Xarelto) 20 mg tablet Discontinued 0 .ROUTE .COMPLEX 90 3 December 21, 2024 11:54amOct2024 3:31pm TAKE 1 TABLET BY MOUTH ONCE DAILYStart: 12-24-2022 End: 92-66-8654gpnx 1 tablet by mouth once dailyRivaroxaban (Xarelto) [...] mg oral tablet (4 sources)HMG-CoA Reductase InhibitorStart: 12-86-3126tkaq 1 tablet by mouth once dailysacubitril 24 mg / valsartan 26 mg oral tablet (6 sources)Angiotensin 2 Receptor BlockerStart: 76-04-0776rkrt 0.5 tablet by mouth once dailyStart: 05-28-2024 End: 67-77-4644fagc 0.5 tablet by mouth twice dailySacubitril-Valsartan (Entresto) 24-26 mg tablet Discontinued 0.5 TAB PO Twice daily May 28, 2024 1:00am December 22, 2024 3:38pmspironolactone 25 mg oral tablet (10 sources)Aldosterone AntagonistStart: 20-56-5924Pbgfl: 03-61-6429cmev 12.5 mg by mouth once dailySpironolactone Active 12.5 MG PO Daily January 22, 2024 10:12amStart: 01-22-2024 End: 62-90-2276tsya 1 tablet by mouth once dailySpironolactone 25 [...] tablet (20 sources)Serotonin Reuptake InhibitorStart: 05-08-2023 End: 05-50-6104lvpq 1 tablet by mouth at bedtimetraZODone (Desyrel) 50 MG tablet Take 50 mg by mouth at bedtime 05/08/2023 Vcmcoh90 hr venlafaxine 150 mg extended release oral capsule (20 sources)Serotonin and Norepinephrine Reuptake InhibitorStart: 55-57-9968wbxk 1 capsule by mouth once dailyStart: 28-05-7355yufw 300 mg by mouth once daily Venlafaxine Active 300 MG PO Daily May 20, 2018 1:00amtake 2 capsules by mouth once dailyVenlafaxine HCl ER 150 MG TAKE 2 CAPSULES BY MOUTH DAILY for 90 ActiveEffexor XR Not-Taking Completed/Discontinued Medications MedicationDrug Class(es)DatesSig (Normalized)Sig (Original)acetaminophen 500 mg oral tablet (15 sources)Start: 12-24-2022 End: 58-46-2530lsoc 1 tablet by mouth twice daily as needed for pain Acetaminophen 500 mg Tablet Discontinued 500 MG PO Twice daily as needed for Pain December 242:00am May 28, 2024 12:20gombc319509 200 actuat albuterol 0.09 mg/actuat metered dose inhaler (5 sources)beta2-Adrenergic AgonistStart: 16-25-5550rqij 2 puff(s) by inhalation every six hours as neededVentolin HFA 108 (90 Base) MCG/ACT 2 puffs as needed Inhalation every 6h prn Jun, Not-Takingamiodarone hydrochloride 200 mg oral tablet (3 sources)AntiarrhythmicStart: 09-03-2024 End: 79-55-1614ullv 1 tablet by mouth once dailyAmiodarone 200 mg tablet Discontinued 200 MG PO Daily September 03, 2024 12:00am December 21, 2024 1 1:31amaspirin 81 mg delayed release oral tablet (5 sources)Platelet Aggregation Inhibitor, Nonsteroidal Anti-inflammatory Drug Start: 01-22-2024 End: 29-96-3135hvdt 1 tablet by mouth once dailyAspirin 81 mg tablet,delayed release (DR/EC) Discontinued 81 MG PO Daily January 22, 2024 12:00amSept2024 11:31amatorvastatin 40 mg oral tablet (5 sources)HMG-CoA Reductase InhibitorStart: 01-22-2024 End: 36-51-1659fdon 1 tablet by mouth once dailyAtorvastatin 40 mg tablet Discontinued 40 MG PO Daily January 22, 2024 12:00am May 28, 2024 12:42pm benzonatate 100 mg oral capsule (5 sources)Non-narcotic AntitussiveStart: 49-07-6967ywtz 1 capsule by mouth every eight hoursTessalon Perles 100 MG 1 capsule as needed Orally Three times a day Jun, Not-Takingcariprazine 3 mg oral capsule (11 sources)Atypical AntipsychoticStart: 08-19-2023 End: 13-04-3372lgjj 1 capsule by mouth once dailyCariprazine (Vraylar) 3 mg capsule Discontinued 3 MG PO Daily August 19, 2023 12:00am May 28, 2024 12:42pmcholecalciferol 1.25 mg oral capsule (20 sources)Vitamin DStart: 10-06-2023 End: 65-87-4248qheo 1 capsule by mouth every weekCholecalciferol (Vitamin D3) 1,250 mcg (50,000 unit) capsule Discontinued 0 .ROUTE .COMPLEX 4 3 October 06, 2023 10:00am May 28, 2024 12:42pm TAKE 1 CAPSULE BY MOUTH ONCE A WEEKStart: 68-62-9020rbpi 1 capsule by mouth every weekCholecalciferol (Vitamin D3) Active 0 .ROUTE .COMPLEX 4 October 06, 2023 10:00am TAKE 1 CAPSULE BY MOUTH ONCE A WEEK Start: 07-18-2023 End: 01-24-4828wpof 1 capsule by mouth every weekCholecalciferol (Vitamin D3) 1,250 mcg (50,000 unit) capsule Discontinued 1250 MCG PO every week 1390 0 July 18, 2023 12:00am October 06, 2023 10:00am30 actuat fluticasone furoate 0.1 mg/actuat / vilanterol 0.025 mg/actuat dry powder inhaler (5 sources)Corticosteroid, beta2-Adrenergic AgonistStart: 01-22-2024 End: 83-65-2897Uwkdjejywmt Furoate-Vilanterol (Breo Ellipta) 100-25 mcg/dose blister with device Discontinued INHALATION January 22, 2024 12:00am May 28, 2024 12:39pmhydroxychloroquine sulfate 200 mg oral tablet (20 sources)Antimalarial, Antirheumatic AgentStart: 05-20-2018 End: 99-90-7599cpft 1 tablet by mouth twice dailyHydroxychloroquine 200 mg tablet Discontinued 200 MG PO Twice daily May 20, 2018 1:00am May 28, 2024 12:42pmketorolac tromethamine 5 mg/ml ophthalmic solution (15 sources)Nonsteroidal Anti-inflammatory Drug, Cyclooxygenase InhibitorStart: 12-24-2022 End: 29-07-2903ytzi 1 drop(s) into the eye(s) four times dailyKetorolac 0.5 % drops Discontinued 1 DROPS EYE-RIGHT Four times daily December 24, 2022 12:00am May 08, 2023 4:08pmStart: 12-24-2022 End: 91-57-1166exwl 1 drop(s) into the eye(s) four times dailyKetorolac 0.5 % drops Discontinued 1 DROPS EYE-RIGHT Four times daily December 24, 2022 12:00am May 08, 2023 4:08pmStart: 12-24-2022 End: 39-97-7811bngx 1 drop(s) into the eye(s) four times dailyKetorolac Discontinued 1 DROPS EYE-RIGHT Four times daily December 24, 2022 12:00am May 08, 2023 4:08pmlisinopril 5 mg oral tablet (20 sources)Angiotensin Converting Enzyme InhibitorStart: 05-20-2018 End: 32-52-9219esle 1 tablet by mouth once dailyLisinopril 5 mg tablet Discontinued 5 MG PO Daily May 20, 2018 1:00am December 24, 2022 3:02am Lisinopril Not-Takingmagnesium oxide 400 mg oral tablet (5 sources)Start: 01-22-2024 End: 28-69-6941zjyt 1 tablet by mouth twice dailyMagnesium Oxide 400 mg magnesium tablet Discontinued 400 MG PO Twice daily January 22, 2024 12:00am December 21, 2024 11:30ammirtazapine 15 mg oral tablet (5 sources)Start: 01-22-2024 End: 57-86-9998whrq 1 tablet by mouth once dailyMirtazapine 15 mg tablet Discontinued 15 MG PO Daily January 22, 2024 12:00am May 28, 2024 12:40pm mupirocin 0.02 mg/mg topical ointment (20 sources)RNA Synthetase Inhibitor AntibacterialStart: 10-24-2023 End: 37-78-6500Fxymqojvp 2 % ointment Discontinued 1 APPLIC TOPICAL Twice daily October 24, 2023 12:00am May 28, 2024 12:42pm FreeTextSi application Externally Twice a day; Note: Source Status: Taking; Refills: 1; Qty: 22 Gram; Provider: Chaparro Craven EStart: 07-87-9565Mutvheljz Active 1 APPLIC TOPICAL Twice daily October 24, 2023 12:00am FreeTextSi application Externally Twice a day; Note: Source Status: Taking; Refills: 1; Qty: 22 Gram; Provider: Chaparro PalafoxStart: 82-55-4673Horbjalqp 2 % 1 application Externally Twice a day for 5 day(s) Apr, ActiveOmeprazole (5 sources)Proton Pump InhibitorOmeprazole Not-Takingondansetron 4 mg oral tablet (4 sources)Serotonin-3 Receptor AntagonistStart: 05-28-2024 End: 13-15-0551kbgo 1 tablet by mouth every eight hours as needed for nausea and vomitingOndansetron Hcl 4 mg tablet Discontinued 4 MG PO Every 8 hours as needed for nausea and vomiting 300 May 28, 2024 1:00am December 21, 2024 11:30am QUEtiapine 25 mg oral tablet (11 sources)Atypical AntipsychoticStart: 08-19-2023 End: 86-14-5870ucvw 1 tablet by mouth once daily at bedtimeQuetiapine (Seroquel) 25 mg tablet Discontinued 25 MG PO Daily at bedtime August 19, 2023 12:00am Oct 2:29pmSITagliptin 100 mg oral tablet (20 sources)Dipeptidyl Peptidase 4 InhibitorStart: 09-09-2023 End: 80-33-8086ueyn 1 tablet by mouth once dailySitagliptin Phosphate (Januvia) 100 mg tablet Discontinued 0 .ROUTE .COMPLEX 90 0 December 03, 2023 9:46am May 28, 2024 12:41pm TAKE 1 TABLET BY MOUTH DAILYStart: 12-24-2022 End: 91-86-5044mkdp 1 tablet by mouth once dailySitagliptin Phosphate (Januvia) 100 mg tablet Discontinued 100 MG PO Daily December 24, 2022 12:00am September 09, 2023 9:11amsodium chloride 1000 mg oral tablet (12 sources)Start: 10-24-2023 End: 95-03-0664herx 1 tablet by mouth once dailySodium Chloride [...] mg oral capsule (20 sources)BenzodiazepineStart: 05-08-2023 End: 38-90-1321ulxk 1 capsule by mouth once daily at bedtimeTemazepam (Restoril) 15 mg capsule Discontinued 15 MG PO Daily at bedtime May 08, 2023 1:00am May 08, 2023 4:37pmStart: 16-94-4972rfuv 1 capsule by mouth every twenty- four hoursTemazepam 15 MG 1 capsule at bedtime as needed Orally Once a day for 30 days Aug, ActivetraMADol hydrochloride 50 mg oral tablet (20 sources)Opioid AgonistStart: 08-19-2023 End: 16-73-1145jdjb 1 tablet by mouth twice daily as neededTramadol 50 mg tablet Discontinued 50 MG PO Twice daily as needed August 19, 2023 12:00am January 22, 2024 10:20amStart: 12-24-2022 End: 74-96-1702idaw 1 tablet by mouth every eight hoursTramadol 50 mg tablet Discontinued 50 MG PO Q8H December 24, 2022 12:00am May 08, 2023 4:10pm Start: 20-75-0381juvt 1 tablet by mouth three times daily as neededtraMADol HCl 50 MG 1 tablet as needed Orally tid prn for 30 days Aug, Activewarfarin sodium 10 mg oral tablet (20 sources)Vitamin K AntagonistStart: 05-20-2018 End: 30-77-4291njjn 5 mg by mouth once dailyWarfarin 10 mg tablet Discontinued 5 MG PO Daily May 20, 2018 1:00am December 24, 2022 3:03amStart: 05-20-2018 End: 29-63-4143kfqd 5 mg by mouth once dailyWarfarin Discontinued 5 MG PO Daily May 20, 2018 1:00am December 24, 2022 3:03amWarfarin Sodium Not-Taking Problems Active Problems Problem ClassificationProblemDateDocumented DateEpisodic/ChronicAcute myocardial infarction (2 sources)Non-ST elevation (NSTEMI) myocardial infarction; Translations: [Non- ST elevation (NSTEMI) myocardial infarction]Onset: 16-08-0300Bcapqks Administrative/social admission (1 source)Counseling procedure with explicit context; Translations: [Dietary counseling and surveillance]EpisodicAnxiety disorders (16 sources)Anxiety; Translations: [Other specified anxiety disorders]Chronic Cardiac dysrhythmias (2 sources)Paroxysmal atrial fibrillation; Translations: [Paroxysmal atrial fibrillation]Onset: 13-51-1923XccgyuhJyzibxf dysrhythmias (4 sources)Tachycardia; Translations: [Tachycardia, unspecified]Onset: 64-07-3971OeykprizQayoept kidney disease (3 sources)Chronic kidney disease stage 3; Translations: [Stage 3 chronic kidney disease]24-44-2976CjbftzkRgfpvzq kidney disease (1 source)Chronic kidney disease; Translations: [Chronic kidney disease, stage 3 unspecified]Onset: 79-97-6934Ginlrfq obstructive pulmonary disease and bronchiectasis (4 sources)Chronic obstructive lung disease; Translations: [Chronic obstructive pulmonary disease, unspecified]68-23-6832XqyahmeVybyhay obstructive pulmonary disease and bronchiectasis (1 source)Chronic obstructive pulmonary disease and bronchiectasisCongestive heart failure; nonhypertensive (4 sources)Acute on chronic combined systolic (congestive) and diastolic (congestive) heart failure; Translations: [Heart failure, unspecified]Onset: 14-30-5247StesjxnHnjwoltb atherosclerosis and other heart disease (15 sources)Coronary arteriosclerosis; Translations: [Atherosclerotic heart disease of [place] coronary artery without angina pectoris]Onset: 05-11-2024 61-12-1105UgqohurWlrsjxhy mellitus with complications (20 sources)Hyperglycemia due to type 2 diabetes mellitus; Translations: [Type 2 diabetes mellitus with hyperglycemia]Onset: 556018-53-0427HuwgepfMlnsdfgu mellitus without complication (17 sources)Diabetes mellitus without complication; Translations: [Diabetes mellitus due to underlying condition without complications]ChronicDisorders of lipid metabolism (4 sources)Hyperlipidemia; Translations: [Hyperlipidemia, unspecified]Onset: 816541-01-3992GatjxqfNapfiktht usually diagnosed in infancy, childhood, or adolescence (3 sources)Adult attention deficit hyperactivity disorder ; Translations: [Other specified behavioral and emotional disorders with onset usually occurring in childhood and adolescence]ChronicE Codes: Fall (17 sources)Fall; Translations: [Unspecified fall, initial encounter]12-24-2022 EpisodicEssential hypertension (16 sources)Hypertensive disorder; Translations: [Essential (primary) hypertension]35-46-1575MlotgkwBsfnj and electrolyte disorders (18 sources)Hyponatremia; Translations: [Hypo-osmolality and hyponatremia] 24-84-2965MceozqxnDmjjdvwhzmrsy symptoms and ill-defined conditions (14 sources)Increased frequency of urination; Translations: [Frequency of micturition]03-18-4583LchsyzntUzdlneityryv with complications and secondary hypertension (4 sources)Chronic kidney disease due to hypertension; Translations: [Hypertensive chronic kidney disease withstage 1 through stage 4 chronic kidney disease, or unspecified chronic kidney disease]Onset: ChronicImmunizations and screening for infectious disease (1 source)Raised antibody titer; Translations: [RAISED ANTIBODY TITER]Onset: 51-22-5897OhonuqgxZckmpql and fatigue (2 sources)Fatigue; Translations: [Other fatigue]EpisodicMiscellaneous mental health disorders (9 sources)Primary insomnia; Translations: [Primary insomnia]ChronicMood disorders (20 sources)Depressive disorder; Translations: [Depressive disorder]Onset: 451858-80-0833ZpqcgyaWmhjrssizvmlsq (15 sources)Osteoarthritis; Translations: [Unspecified osteoarthritis, unspecified site]Onset: 368714-42-2085MgsejtgOzajl acquired deformities (13 sources)Contracture of joint of hand; Translations: [Contracture, unspecified hand]ChronicOther aftercare (1 source)Other jewelry designer (current) drug therapy; Translations: [OTH [facility] CURRENT DRUG THERAPY]Onset: 53-11-9179IhghbfteAonbz circulatory disease (1 source)Other specified symptoms and signs involving the circulatory and respiratory systemsEpisodicOther diseases of kidney and ureters (3 sources)Secondary hyperparathyroidism; Translations: [Secondary hyperparathyroidism of renal origin]27-56-6907GfrwgcmBpbko diseases of kidney and ureters (1 source)Secondary hyperparathyroidism of renal origin; Translations: [Secondary hyperparathyroidism of renal origin]Onset: 51-37-0754PpjcgdsCfrhc gastrointestinal disorders (13 sources)Irritable bowel syndrome; Translations: [...] (5 sources)Polyarthritis, unspecified; Translations: [POLYARTHRITIS UNSPECIFIED] Onset: 97-09-9457JqpmastEyluh non-traumatic joint disorders (13 sources)Arthralgia of the pelvic region and thigh; Translations: [Pain in right hip]EpisodicOther non-traumatic joint disorders (5 sources)Pain in right hip; Translations: [Pain in joint, pelvic region and thigh]EpisodicOther non-traumatic joint disorders (2 sources)Pain in right hip joint; Translations: [Pain in right hip]Episodic Other non-traumatic joint disorders (15 sources)Hip pain; Translations: [Pain in right hip]64-91-4234RjswqctrOyckl nutritional; endocrine; and metabolic disorders (2 sources)Morbid obesity; Translations: [Morbid (severe) obesity due to excess calories]Onset: 05-48-3301TkfqfpaLdjry nutritional; endocrine; and metabolic disorders (2 sources)Body mass index 40+ - severely obese; Translations: [Body mass index (BMI) 40.0-44.9, adult]ChronicOther nutritional; endocrine; and metabolic disorders (2 sources)Morbid (severe) obesity due to excess calories; Translations: [Morbid (severe) obesity due to excess calories]Onset: 08-22-3785LvpkpipWecag nutritional; endocrine; and metabolic disorders (12 sources)Excessive [...] [Personal history of other venous thrombosis and embolism]29-97-2552MyqegbyxRzaryghdm heart disease (15 sources)Pulmonary embolism; Translations: [Other pulmonary embolism without acute cor pulmonale]Onset: 11-91-9626SiogzhcvYaknzund codes; unclassified (15 sources)Obstructive sleep apnea syndrome; Translations: [Obstructive sleep apnea (adult) (pediatric)]Onset: 94-24-9244IhvmzxsOaaxqqoj codes; unclassified (1 source)Obstructive sleep apnea (adult) (pediatric)ChronicResidual codes; unclassified (2 sources)Family history of breast cancer; Translations: [Family history of malignant neoplasm of breast]EpisodicResidual codes; unclassified (11 sources)Edema of lower extremity; Translations: [Localized edema]08-19-2023 EpisodicResidual codes; unclassified (3 sources)Localized edema; Translations: [Edema]43-61-2214WudnaljiBfqfduwknw arthritis and related disease (20 sources)Rheumatoid arthritis; Translations: [Rheumatoid arthritis, unspecified]ChronicSpondylosis; intervertebral disc disorders; other back problems (20 sources)Low back pain; Translations: [Lumbar pain]Onset: 35-56-1862Ljwfjaae Tuberculosis (1 source)Tuberculosis of spineEpisodicUnclassified (1 source)Supraventricular tachycardia, unspecified; Translations: [Supraventricular tachycardia, unspecified]Onset: 01-22-2022 Past or Other Problems Problem ClassificationProblemDateDocumented DateEpisodic/ChronicAcute bronchitis (2 sources)Acute bronchitis; Translations: [Acute bronchitis, unspecified]Onset: 04-12-4977DemhctmkQkpmrcio atherosclerosis and other heart disease (2 sources)Presence of aortocoronary bypass graft; Translations: [Presence of aortocoronary bypass graft]Onset: 89-41-5217NuxgwrtwKkxvxhzm mellitus without complication (2 sources)Hyperglycemia; Translations: [Hyperglycemia, unspecified]Onset: 58-60-8663VymsirtoJtuoj lower respiratory disease (2 sources)Other forms of dyspnea; Translations: [Other forms of dyspnea]Onset: 95-29-3206IkekazmvPivif non-traumatic joint disorders (2 sources)Joint pain; Translations: [Pain in unspecified joint]Onset: 71-03-5120DdgecrqsOpbnc screening for suspected conditions (not mental disorders or infectious disease) (20 sources)Raised cardiac enzyme or marker; Translations: [Other specified abnormal findings of blood chemistry]Onset: 076563-86-4260MhrizlkhWokcdspm codes; unclassified (2 sources)Insomnia; Translations: [Insomnia, unspecified]Onset: 09-10-2018 EpisodicResidual codes; unclassified (2 sources)Tobacco use; Translations: [Tobacco use]Onset: 97-75-3004Xtqrjbkf Unclassified (2 sources)Lumbar pain M54.50Unclassified (4 sources)Depressive disorder F32.AUnclassified (1 source)Supraventricular tachycardia, unspecified; Translations: [Supraventricular tachycardia, unspecified]Onset: 08-31-2024 Results Test NameValueInterpretationReference RangeFacilityHPon 49-86-4228LN Attestation signed by Konrad Adams MD at [...] be an additional personal documentation from me. [place] Electrophysiology Consult Note Reason for visit: Palpitations [...] Year: No Utilities: Not At Risk (05/11/2024) [facility] Utilities Threatened with loss of utilities: No Health Literacy: Not on file Allergies: Allergies Allergies Allergen (more content not included)...[facility] NURSNOTEon 60-57-3978FTUUPEOVPB educated pt on d/c instructions. This included: [...] wheeled off of unit with all of belongings.[facility] CenterUS renal BIon 96-79-0006VA renal [facility] [place] [address] Ultrasound Report Signed Patient: Ruma Carlton MR#: [id number] 7 : 1960 Acct:[id number] Age/Sex: 64 / F ADM Date: 01/11/25 Loc: Room: Type: [facility] Attending Dr: Ramy Santacruz MD Ordering Provider: [...] Mckeon M.D. 01/11/2025 1:54 PM Dictation Location: [place] [address] Tech: Ghazala Marva Transcribed By: CHRISTIAN 01/11/25 1354 Dictated By: Prosper Mckeon DO 01/11/25 1353 Signed By: 01/11/25 1354[facility] Physician Pfqzq26le 10-23-724983Xmyf from [facility] Cardiac Rehab made us aware of patient's 5# weight gain over the weekend. Says she took an extra lasix tablet. Currently taking lasix 40mg bid and spironolactone 12.5mg daily. I ordered labs to see if renal function would allow for increase in lasix. Will update Dr. Johnson once lab results are received. Results are in social media campaign manager for your review. Thanks.[facility] Medical CenterGlomerular filtration rate (GFR) estimation in non- AmericanOrdered By: Al Johnson on 08-60-5612PQO/1.73 sq M.predicted among non-blacks MDRD (S/P/Bld) [Vol rate/Area]33 mL/min/{1.73_m2}Low>=60 mL/min/1.73m 2FMercy HealthLaboratory - Chemistry and Chemistry - challengeOrdered By: Al Johnson on 71-37-2449Mnvcvst [Mass/Vol]9.2 mg/dL 8.5-10.1FMercy HealthChloride [Moles/Vol]102 mmol/L98-107 [facility] [place] [facility] HospitalCO2 [Moles/Vol]32.1 mmol/LHigh21.0-32.0 [facility] [place] [facility] HospitalCreatinine [Mass/Vol]1.60 mg/dLHigh0.55-1.02 [facility] [place] [facility] HospitalGFR/1.73 sq M.predicted MDRD (S/P/Bld) [Vol rate/Area]39 mL/min/{1.73_m2}Low>=60 mL/min/1.73m 2FMercy HealthGlucose [Mass/Vol]150 mg/cVHlja71-894CrznwwrlbEast [place] [facility] Hospital Natriuretic peptide B (Bld) [Mass/Vol]707.0 pg/mL<=900.0[facility] [place] [facility] HospitalPotassium [Moles/Vol]3.8 mmol/L3.5-5.1FMercy Memorial Hospitalodium [Moles/Vol]143 mmol/R378-034AuwkmkkxnEast [place] Regional HospitalUrea nitrogen [Mass/Vol]25.0 mg/dLHigh7.0-18.0[facility] [place] [facility] HospitalUrea nitrogen/Creatinine [Mass ratio]15.6 mg/mgEast [place] [facility] Hospital Laboratory - Chemistry and Chemistry - challengeOrdered By: Anibal Chaudhary on 26-10-0221Fywv T4 [Mass/Vol]1.24 ng/dL0.76-1.46[facility] [place] [facility] TSH Qn9.512 m[IU]/LHigh0.358-3.740Adams County Hospitalerum or plasma anion gap determinationOrdered By: Al Johnson on 15-47-4302Xcaji gap [Moles/Vol]12.7 mmol/LFMercy HealthTelephoneon 12-29-2024 [id number] BrandtRuma 1960 F Date Provider Department Center [...] Daughter Alive Nephew Alive Neg HxNormalUniversity of Heart Hospital Of AustinOffice Visiton 13-99-0121Dkwyzk- up [id number] BrandtRuma 1960 F Date Provider Department Center [...] Alive Nephew Alive Neg Hx Level of Service:66786 [place] OFFICE/OUTPATIENT ESTABLISHED LOW MDM 20 [facility]36on 83-40-334299Ss informed sent to [place] [facility]Kind[facility]3676-21-339706Onhdxeccq PFT result from 11/26/2024: Al Johnson MD to De (Selected Message) 12/01/24 4:23 PM Please let her know her pulmonary function tests are abnormal and I would recommend she see a station installer and repairer. Thank [facility] HospitalTelephoneon 12-02-2024 [id number] Ruma Carlton 1960 F Date Provider Department [...] Daughter Alive Daughter Alive Nephew Alive Neg HxNormalUniversHighland District Hospital Onlyon 50-28-2963Odhetr [id number] Ruma Carlton 1960 F Date Provider Department Center 12/01/2024 [id number], HISTORICAL CARD [facility] Family History Problem [...] Daughter Alive Nephew Alive Neg HxNormalUniversCleveland Clinic Marymount Hospital36on 43-46-141544Nsgevmrau lab results from 10/12/2024: MD Stacy Rodriguez MA She has CKD - she should be seeing a circulating process inspector. Thanks. Spoke with patient and she agrees to nephrology referral, as she currently does not see one. Referral sent to [facility] Nephrology.[facility] CenterCholesterol in LDL Calc [Mass/Vol]Ordered By: Darryl Pedraza on 22-68-5851Tamcaircsor in LDL [Mass/Vol]60.0 mg/dLEast [place] Regional HospitalComment on above:<100 mg/dl QSJUFUQ395-106 mg/dl NEAR OR ABOVE UKPEZYW950- 159 mg/dl BORDERLINE TPJR410-441 mg/dl HIGH>190 mg/dl VERY HIGHCholesterol in VLDL Calc [Mass/Vol]Ordered By: Darryl Pedraza on 78-71-0049Gichcjsysyg in VLDL [Mass/Vol]25.4 mg/dLEast [place] Regional HospitalGlobulin Calc (S) [Mass/Vol]Ordered By: Darryl Pedraza on 92-01-1821Puxqefwn (S) [Mass/Vol]3.9 g/dLEast [place] Regional HospitalGlomerular filtration rate (GFR) estimation in non- AmericanOrdered By: Darryl Pedraza on 69-17-2635KBW/1.73 sq M.predicted among non-blacks MDRD (S/P/Bld) [Vol rate/Area]35 mL/min/{1.73_m2} Low>=60 mL/min/1.73m 2FMercy HealthLaboratory - Chemistry and Chemistry - challengeOrdered By: Darryl Pedraza on 32-22-9280Myofizr [Mass/Vol]3.7 g/dL3.4-5.0[facility] [place] [facility] HospitalALP [Catalytic activity/Vol]128 U/KBdmz45-422YhngjqfviEast [place] Regional HospitalALT [Catalytic activity/Vol]27 U/O44-40IpeevapitEast [place] Regional HospitalAST [Catalytic activity/Vol]27 U/U47-63PdumwtqhpEast [place] Regional HospitalBilirubin [Mass/Vol]0.5 mg/dL0.2-1.0[facility] [place] [facility] HospitalCalcium [Mass/Vol]9.2 mg/dL 8.5-10.1FMercy HealthChloride [Moles/Vol]104 mmol/L98-107 [facility] [place] [facility] HospitalCholesterol [Mass/Vol]148 mg/dL<=200[facility] [place] [facility] HospitalCholesterol in HDL [Mass/Vol]63 mg/tVFlrz10-52NrobajxyaEast [place] Regional HospitalComment on above:> or =60 mg/dl - LOW CARDIOVASCULAR RISK<40 mg/dl - HIGH CARDIOVASCULAR RISKCO2 [Moles/Vol]28.7 mmol/L21.0-32.0 [facility] [place] [facility] HospitalCreatinine [Mass/Vol]1.51 mg/dLHigh0.55-1.02 [facility] [place] [facility] HospitalGFR/1.73 sq M.predicted MDRD (S/P/Bld) [Vol rate/Area]42 mL/min/{1.73_m2}Low>=60 mL/min/1.73m 2FMercy HealthGlucose [Mass/Vol]172 mg/lLNfga59-375NdhxnxmltEast [place] [facility] Hospital Potassium [Moles/Vol]3.6 mmol/L3.5-5.1FMercy HealthProtein [Mass/Vol]7.6 g/dL6.4-8.2FMercy Memorial Hospitalodium [Moles/Vol]145 mmol/U585-752LotsdrqeyEast [place] Regional HospitalTriglyceride [Mass/Vol]127 mg/dL <=150[facility] [place] [facility] HospitalUrea nitrogen [Mass/Vol]18.0 mg/dL7.0-18.0 [facility] [place] [facility] HospitalUrea nitrogen/Creatinine [Mass ratio]11.9 mg/mg [facility] Hospitalerum or plasma albumin/globulin mass ratio Ordered By: Darryl Pedraza on 71-97-4828Vzvaydc/Globulin [Mass ratio]0.9 {ratio} [facility] Hospitalerum or plasma anion gap determinationOrdered By: Darryl Pedraza on 32-73-7933Yoooa gap [Moles/Vol]15.9 mmol/LFMercy Memorial Hospitalerum or plasma total cholesterol/high density lipoprotein (HDL) cholesterol mass ratOrdered By: Darryl Pedraza on 10-12-2024 Cholesterol.total/Cholesterol in HDL [Mass ratio]2.3 {ratio}[facility] [place] [facility] HospitalComment on above:3.3 - 4.4 LOW RISK4.4 - 7.1 AVERAGE RISK7.1 - 11.0 MODERATE RISK>11.0 HIGH RISKOffice Visiton 10-35-6007Inpdhx-up visit [id number] Ruma Carlton 1960 F Date Provider Department [...] Alive Nephew Alive Neg Hx Level of Service:49083 [place] OFFICE/OUTPATIENT ESTABLISHED LOW MDM [facility] 92-16-4573Mgbjef-up visit [id number] Ruma Carlton 1960 F Date Provider Department [...] Alive Nephew Alive Neg Hx Level of Service:35516 [place] OFFICE/OUTPATIENT ESTABLISHED HIGH MDM 40 [facility] SystemANESon 07-45-8860OBQK Attestation signed by Marcello Wagner MD at 07/21/2024 12:15 PM I have spoken with and examined Ms. Carlton and agree with Dr. Mann's exam. She has intact R femoral, popliteal and DP pulses. She understands risks and consents to proceed. Patient: Ruma Carlton Procedure Information Date/Time: 07/21/24 1145 Procedures: Coronary angiography (Left) - PC PENDING Right heart cath Location: [facility] INTAKE RN 3 / [facility] (Cath) Providers: Marcello Wagner MD [...] discussed with attending. Additional Equipment RequestsNormalUniversity of Heart Hospital Of AustinHPon 50-67-9226VVUlqvwww Of Present Illness Ruma Carlton is a [...] is mildly enlarged. Overall (more content not included)...NormalUnMercy Health St. Charles HospitalNURSNOTEon 25-81-7981TYWWUPJCIigacqk ambulated to bathroom. Gait steady. Right groin cath site without bleeding or hematomaNormalUniversCleveland Clinic Marymount HospitalNURSNOTEDr. Wagner assessed patient and site. Told her she could be discharged home at 6:30pmNormUniversity Hospitals Ahuja Medical CenterJANETH educated pt on d/c instructions. This included: [...] wheeled off of unit with all of belongings.[facility] CenterOrders Onlyon 90-53-0398Clfnng [id number] Brandt,Ruma K 1960 Date Provider Department Center [...] Daughter Alive Daughter Alive Nephew Alive Neg HxNormalUniCrystal Clinic Orthopedic Center36on 81-62-117566Mcw Francie Pedraza CNP - patient needs scheduled for heart cath with Dr. Johnson s/p abnormal stress test performed on 07/01/2024. Patient made aware. Orders entered.[facility] Medical CenterOrders Onlyon 18-57-3619Ttuffs [id number] BrandtRuma K 1960 Date Provider Department Center 07/06/2024 Adrián8-STACY BRADY SREEDHAR [facility] Family History Problem Relation Age [...] Daughter Alive Nephew Alive Neg HxNormalUniversCleveland Clinic Marymount HospitalOffice Visiton 99-95-7470Tvqidf- up [id number] Ruma Carlton 1960 F Date Provider Department [...] Alive Nephew Alive Neg Hx Level of Service:23471 [place] OFFICE/OUTPATIENT NEW MODERATE MDM 45 MINUTESNormal [facility]36on 05-05-315868Jsizi to patient and advised her that Francie Milo would like her to increase her spirolactone to 12.5 and have a BMP done in 1 month. Patient verbalized understanding.[facility]36on 45-81-930926Llsemta Tucker, PRENATAL GENETIC COUNSELOR P Cardiology Clinical Support Pool Her labs show a slight bump in her kidney function. Would like her to go back to spironolactone 12.5mg daily. Follow up BMP in 1 month. Thank you Left message for patient to call back.[facility] 36on 77-48-760839Drra, lets order for a lexiscan stress test please. Please remind her to get follow up BMP since we increased her aldactone. Thank DarrenOhio State East Hospital37on *We are increasing spironolactone to 25mg daily *Have lab work done around 06/02/2024 to check kidney function with the increase in spironolactone. *We will call you in 1-2 weeks to see how you are feeling. *Follow-up after event monitor comes off.[facility] CenterOffice Visiton 27-07-5579Tdbiuw-up [id number] Ruma Carlton 1960 F Date Provider Department [...] Alive Nephew Alive Neg Hx Level of Service:31562 [place] OFFICE/OUTPATIENT ESTABLISHED MOD MDM 30 MIN Reason for Visit and Comments: Leg Swelling [] Shortness of Breath [] Congestive Heart Failure [127] Coronary Artery Disease [187]NormalUnMercy Health St. Charles Hospital37on *Have lab work done today. *If labs look okay, we will let you know to increase lasix to 40mg twice daily for 1 week. *We switched atorvastatin to rosuvastatin 20mg daily. We will plan to get follow-up labs in 2 months to follow-up on cholesterol levels and liver function.NormalOhio Valley Surgical HospitalEstimated glomerular filtration rate (GFR) non- Americanon 32-26-8610IGT/1.73 sq M.predicted among non-blacks MDRD (S/P/Bld) [Vol rate/Area]Estimated glomerular filtration rate (GFR) non- AmericanLow>=60 mL/min/1.73m 2FMercy HealthLaboratory - Chemistry and Chemistry - challengeon 85-97-0577Kziflpu [Mass/Vol]9.4 mg/dL8.5-10.1FMercy HealthChloride [Moles/Vol] 102 mmol/H22-925JwshzvsdqEast [place] Regional HospitalCO2 [Moles/Vol]30.4 mmol/L 21.0-32.0[facility] [place] [facility] HospitalCreatinine [Mass/Vol]1.12 mg/dLHigh 0.55-1.02[facility] [place] [facility] HospitalGFR/1.73 sq M.predicted MDRD (S/P/Bld) [Vol rate/Area]60 mL/min/{1.73_m2}>=60 mL/min/1.73m [address] [place], [place] [address]Glucose [Mass/Vol]158 mg/uTNocw81-671OizlobhetEast [place] Regional Hospital Potassium [Moles/Vol]3.8 mmol/L3.5-5.1FMercy Memorial Hospitalodium [Moles/Vol]140 mmol/T623-029XnognziprEast [place] Regional HospitalUrea nitrogen [Mass/Vol]22.0 mg/dLHigh7.0-18.0[facility] [place] [facility] HospitalUrea nitrogen/Creatinine [Mass ratio]19.6 mg/mgEast [place] [facility] Hospital Office Visiton 38-41-3832Kshkbf-up [id number] Ruma Carlton Mu 1960 Date Provider Department [...] Alive Nephew Alive Neg Hx Level of Service:17803 [place] OFFICE/OUTPATIENT ESTABLISHED MOD MDM 30 MIN Reason for Visit and Comments: Hospital Follow-up [832] Congestive Heart Failure [127][facility]'s Hospitalerum or plasma anion gap determinationon 21-96-4318Qbetq gap [Moles/Vol]Serum or plasma anion gap determinationEast [place] Regional HospitalTelephoneon 05-18-2024 [id number] Ruma Carlton Mu 1960 Provider Department Center 05/18/2024 CELESTINA BOLAÑOS [facility] [place] HeartVAS Family History Problem Relation Age of [...] Visit and Comments: HF post discharge call. [Other][facility] Documentationon [id number] Ruma Carlton Mu 1960 Date Provider Department Center 05/17/2024 73017-XXJAWSKCELESTINA FONG [facility] [place] HeartVAS Family History Problem Relation Age of [...] and Comments: HF inpatient satisfaction survey sent. [Other][facility] Medical CenterTelephoneon [id number] Ruma Carlton 1960 F Date Provider Department Center 05/17/2024 24002-PNOYWQC, CELESTINA [facility] [place] HeartVAS Family History Problem [...] Visit and Comments: HF post discharge call. [Other][facility]36on 95-87-395144Ttxd Discharge Call Good afternoon, I am Sudha De La Paz, RN a lead nurse from [facility]. I am calling you to follow [...] discuss? No Patient Name Ruma Carlton Date 05/15/24NormalUniCrystal Clinic Orthopedic CenterTephoneon 05-15-2024 [id number] Ruma Carlton 1960 F Date Provider Department Center 05/15/2024 SUDHA THOMPSON [facility] Medical C Family History Problem Relation Age [...] Visit and Comments: post discharge call backs [Other][facility]30on 97-79-290216Ehagf Case Management Update Multidisciplinary rounds have been completed. Barriers to Discharge: Patient is medically ready for hospital discharge at this time. AVS has been completed, and primary RN has been notified of patients discharge readiness. Patient will discharge to home, and family will provide patients transportation. No further OTM needs identified at this time. [facility] will continue to follow patient and assist [...] Health Types of Home Health Service needed Care Home Types of Home Health Service needed Physical Therapy Please indicate your approval for this care by adding your name here: KENDELL GALLARDO 05/11/24 2228NormalUKing's Daughters Medical Center [place]30The patient is Moderately Stable - Low risk [...] and behaviors that affect risk of falls Andreas fall precautions as indicated by assessment Educate [...] and comorbid symptoms for stability, deterioration, or improvementNormalUniversCleveland Clinic Marymount HospitalBASIC METABOLIC PANELon 39-32-0239Wbcnd gap [Moles/Vol]14 mmol/LNormal7-20 [facility] HospitalComment on above:Performed By: #### [id number] ####[facility] ([facility])[address] [place], [place] [address]Zhfospn [Mass/Vol]9.5 mg/dLNormal8.6-10.3UnMercy Health St. Charles HospitalComment on above:Performed By: #### [id number] ####[facility] ([facility])[address] [place], [place] [address]Kvgyqmpg [Moles/Vol]104 mmol/TYnegfg83-210LlagoyvaaoMercy Health St. Charles HospitalComment on above:Performed By: #### [id number] ####[facility] ([facility])[address] [place], [place] [address]UV2 [Moles/Vol]23 mmol/LNormal 21-31UnMercy Health St. Charles HospitalComment on above:Performed By: #### [id number] ####[facility] ([facility])[address] [place], [place] [address]Bunrrbjmup [Mass/Vol]1.04 mg/dLNormal0.60-1.20UnMercy Health St. Charles HospitalComment on above:Performed By: #### [id number] ####[facility] ([facility])[address] [place], [place] [address]KMEDIKFEEO FILTRATION RATE ML/MIN/1.73 SQ M.FPRKUKXAZ83.8 mL/min/1.73m*2Normal>60.0UnMercy Health St. Charles HospitalComment on above: Result Comment: [facility]???s estimated glomerular filtration rate (eGFR) will [...] anyone group of individuals.Performed By: #### [id number] ####[facility] ([facility])[address] [place] [id number] [Mass/Vol]128 mg/vNGisd50-399HajcrqbumeMercy Health St. Charles HospitalComment on above:Performed By: #### [id number] ####[facility] ([facility])[address] [place] [id number] [Moles/Vol]4.5 mmol/L Normal3.5-5.1UnMercy Health St. Charles HospitalComment on above:Performed By: #### [id number] ####[facility] ([facility])[address] [place], [place] [id number] Sodium [Moles/Vol]136 mmol/PMbcjfk433-099GkuuhwzmaaMercy Health St. Charles Hospital Comment on above:Performed By: #### [id number] ####[facility] ([facility])[address] [place], [place] [address]Zfao nitrogen [Mass/Vol]23 mg/dLNormal7-25 [facility] HospitalComment on above:Performed By: #### [id number] ####[facility] ([facility])[address] [place], [place] [id number] NITROGEN/CREATININE (MASS RATIO) IN SER/PLAS22.1NormalUnMercy Health St. Charles HospitalComment on above:Performed By: #### [id number] ####[facility] ([facility])[address] [place] [id number] 94-94-7871Jhahikqgtff distribution width (RBC) [Ratio]14.3 %Dgsnbg54.5-15.0UnMercy Health St. Charles HospitalComment on above:Performed By: #### [id number] ####[facility] ([facility])[address] [place], [place] [id number] MEAN CORPUSCULAR HEMOGLOBIN CONCENTRATION (G/DL) BY WIHOOJUDC68.9 g/dLLow32.0-35.0UnMercy Health St. Charles HospitalComment on above:Performed By: #### [id number] ####[facility] ([facility])[address] [place] [id number] (Bld) [Volume fraction]45.8 %Exzpah31.0-48.0UnMercy Health St. Charles HospitalComment on above:Performed By: #### [id number] ####[facility] ([facility])[address] [place] [id number] (Bld) [Mass/Vol]14.6 g/eOSxoded44.0-15.0UnMercy Health St[address] Charles HospitalComment on above:Performed By: #### [id number] ####[facility] ([facility])[address] [place] [id number] (RBC) [Entitic mass] 29.1 gjMvgmwv69.0-33.0UnMercy Health St. Charles HospitalComment on above: Performed By: #### [id number] ####[facility] ([facility])[address] [place] [id number] (RBC) [Entitic vol]91.4 sGIdpegq98.0-98.0UnMercy Health St. Charles HospitalComment on above:Performed By: #### [id number] ####[facility] ([facility])[address] [place] [id number] (10*3/UL) IN BLOOD AUTOMATED [id number] 10*3/fDNbvspd383-238AbzujzkddyMercy Health St. Charles Hospital Comment on above:Performed By: #### [id number] ####[facility] ([facility])[address] [place] [id number] (Bld) [#/Vol]5.01 10*6/uLHigh3.80-5.00 [facility] HospitalComment on above:Performed By: #### [id number] ####[facility] ([facility])[address] [place] [id number] (Bld) [#/Vol]6.81 10*3/uLNormal4.00-10.60UnMercy Health St. Charles HospitalComment on above:Performed By: #### [id number] ####[facility] ([facility])[address] [place] [id number] GLUCOSE METER UNSOLICITED RESULTSon 93-22-3786Nazdish [Mass/Vol]206 mg/sLWdrq95-823QndqvwddkyOhio Valley Surgical HospitalComment on above:Order Comment: Waived Testing in the ED is performed under the ED CLIA certificate #[id number].Result Comment: dcundicPerformed By: #### [id number] #### [facility] ([facility]) [address] [place] [id number] [Mass/Vol]146 mg/lBPuur63-739GejbxzkfzfMercy Health St. Charles HospitalComment on above:Order Comment: Waived Testing in the ED is performed under the ED CLIA certificate #[id number].Result Comment: [email or web address] Performed By: #### [id number] #### [facility] ([facility]) [address] [place] [id number] [id number] patient is Moderately Stable - Low risk [...] patient/family on patient safety, including physical limitations Andreas fall precautions as indicated by assessment Instruct [...] and comorbid conditions and prevent exacerbation or deteriorationNoMansfield Hospital30Daily Case Management Update Multidisciplinary rounds have [...] Health Types of Home Health Service needed Care Home Types of Home Health Service needed Physical Therapy Please indicate your approval for this care by adding your name here: KENDELL GALLARDO 05/11/[address]2227NoalUKing[facility] [place]30The patient is Moderately Stable - Low risk of patient condition declining or worsening The patient's goals for the shift include rest and comfort The clinical goals for the shift include vss;comfort;ambulation;rest Over the shift, the patient did make progress toward the following goals. Barriers to progression include n/a. Recommendations to address these barriers include n/a.NormalUnMercy Health St. Charles HospitalBASIC METABOLIC PANELon 19-24-3434Csbnl gap [Moles/Vol]13 mmol/LNormal7-20UnMercy Health St. Charles HospitalComment on above:Performed By: #### [id number] ####[facility] ([facility])[address] [place], [place] [address]Wynlexi [Mass/Vol]9.1 mg/dLNormal 8.6-10.3UnMercy Health St. Charles HospitalComment on above:Performed By: #### [id number] ####[facility] ([facility])[address] [place], [place] [address]Juhsknra [Moles/Vol]99 mmol/YKfkhmd81-737PptobvfkroMercy Health St. Charles HospitalComment on above:Performed By: #### [id number] ####[facility] ([facility])[address] [place], [place] [address]GV5 [Moles/Vol]29 mmol/ABsuhjp70-56WjhnluhabgMercy Health St. Charles HospitalComment on above:Performed By: #### [id number] ####[facility] ([facility])[address] [place], [place] [address]Gssduixmzk [Mass/Vol]1.29 mg/dLHigh 0.60-1.20UnMercy Health St. Charles HospitalComment on above:Performed By: #### [id number] ####[facility] ([facility])[address], [place] [address]VZJDPZYYGY FILTRATION RATE ML/MIN/1.73 SQ M.BJEUIVGEJ28.9 mL/min/1.73m*2Low>60.0UnMercy Health St. Charles HospitalComment on above:Result Comment: [facility]???s estimated glomerular filtration rate (eGFR) will [...] group of individuals. Performed By: #### [id number] ####[facility] ([facility])[address] [place], [place] [address]Qzlfhjs [Mass/Vol]135 mg/iBOxlj56-945CoyleqstrwMercy Health St. Charles HospitalComment on above:Performed By: #### [id number] ####[facility] ([facility])[address] [place], [place] [address]Eogparklj [Moles/Vol]3.5 mmol/LNormal 3.5-5.1UnMercy Health St. Charles HospitalComment on above:Performed By: #### [id number] ####[facility] ([facility])[address] [place], [place] [address]Kjnfha [Moles/Vol]137 mmol/PWmpanb097-468SzzrdvfltnMercy Health St. Charles HospitalComment on above:Performed By: #### [id number] ####[facility] ([facility])[address] [place], [place] [address]Pdup nitrogen [Mass/Vol]19 mg/dLNormal7-25UnMercy Health St. Charles HospitalComment on above:Performed By: #### [id number] ####[facility] ([facility])[address] [place], [place] [address]YWOH NITROGEN/CREATININE (MASS RATIO) IN SER/PLAS14.7NormalUniversCleveland Clinic Marymount HospitalComment on above: Performed By: #### [id number] ####[facility] ([facility])[address] [facility] [place], [place] [address]FBLO GLUCOSE METER UNSOLICITED RESULTSon 96-40-4089Hnqvode [Mass/Vol] 161 mg/vNRioy78-732KhzjpoevidMercy Health St. Charles HospitalComment on above:Order Comment: Waived Testing in the ED is performed under the ED CLIA certificate #[id number].Result Comment: wchasePerformed By: #### [id number] #### [facility] ([facility]) [address] [place], [place] [address]Jykwlva [Mass/Vol]149 mg/bZZrpn84-117YyzxggtujcOhio Valley Surgical HospitalComment on above:Order Comment: Waived Testing in the ED is performed under the ED CLIA certificate #[id number].Result Comment: [email or web address] Performed By: #### [id number] #### [facility] ([facility]) [address] [place], [place] [address]Zhhuhpb [Mass/Vol]183 mg/iSQzro98-745EtmnpudwehMercy Health St. Charles HospitalComment on above:Order Comment: Waived Testing in the ED is performed under the ED CLIA certificate #[id number].Result Comment: [email or web address] Performed By: #### [id number] #### [facility] ([facility]) [address] [place], [place] [address]Tdhddbr [Mass/Vol]141 mg/pUAnlc24-665MvogfoextuOhio Valley Surgical HospitalComment on above:Order Comment: Waived Testing in the ED is performed under the ED CLIA certificate #[id number].Result Comment: [email or web address] Performed By: #### [id number] ####[facility] ([facility])[address] [place] [address]na [id number] patient is Moderately Stable - Low risk [...] and behaviors that affect risk of falls Andreas fall precautions as indicated by assessment Educate [...] and comorbid conditions and prevent exacerbation or deteriorationNormalUniCrystal Clinic Orthopedic Center30Daily Case Management Update Multidisciplinary rounds have been completed. Barriers to Discharge: Transfer from [facility] ER for heart cath. Patient presented with complaint of SOB worsening x1-2 weeks. Workup at [facility] showed indications of acute on chronic [...] recommended for heart cah per referring hospital ([place]) Level of Consultation Consultation and Management 05/11/24 2229 Ancillary Consults (From admission, onward) Start Ordered 05/11/24 2221 Inpatient consult to Social Work Once Provider: (Not yet assigned) Question Answer Comment Select all services needed for the patient Home Health Types of Home Health Service needed Care Home Types of Home Health Service needed Physical Therapy Please indicate your approval for this care by adding your name here: KENDELL GALLARDO 05/11/24 2228NormalUniCrystal Clinic Orthopedic Center30The patient is Moderately Stable - Low risk of patient condition declining or worsening The patient's goals for the shift include rest and comfort The clinical goals for the shift include vss Over the shift, the patient did make progress toward the following goals. Barriers to progression include n/a. Recommendations to address these barriers include n/a.[facility]30The patient is Moderately Stable - [...] and behaviors that affect risk of falls Andreas fall precautions as indicated by assessment Educate [...] and prevent exacerbation or deteriorationNormalUniJ.W. [facility] [id number] PARTIAL THROMBOPLASTIN TIME IN PPP BY COAGULATION ASSAY49.3 HpapxwqOmpl45.0-35.0UnMercy Health St. Charles Hospital Comment on above:Order Comment: Check aPTT every 6 hours while on heparin infusion, or per protocol.Result Comment: Clinical significance of the APTT is questionable in the presence of heparin.Performed By: #### [id number] #### [facility] ([facility]) [address] [place], [place] [address]ESZhj 12-65-5290Tiaudsxrrhs distribution width (RBC) [Ratio]13.9 %Jxmbpu25.5-15.0UnMercy Health St. Charles HospitalComment on above:Performed By: #### [id number] #### [facility] ([facility]) [address] [place], [place] [address]OJBATZQTPIJ MEAN CORPUSCULAR HEMOGLOBIN CONCENTRATION (G/DL) BY QKVHZREMH84.5 g/zWVgkwhv99.0-35.0UnMercy Health St. Charles HospitalComment on above:Performed By: #### [id number] #### [facility] ([facility]) [address] [place], [place] [address]Xjzntlqaoq (Bld) [Volume fraction]41.8 %Lxgfns94.0-48.0 [facility] HospitalComment on above:Performed By: #### [id number] #### [facility] ([facility]) [address] [place], [place] [address]Hiqpnhcjhe (Bld) [Mass/Vol]13.6 g/pRGkaxiu88.0-15.0UnMercy Health St. Charles HospitalComment on above:Performed By: #### [id number] #### [facility] ([facility]) [address] [place] [id number] (RBC) [Entitic mass]28.9 mrTexrxi84.0-33.0UnMercy Health St. Charles HospitalComment on above:Performed By: #### [id number] #### [facility] ([facility]) [address] [place], [place] [address]HQI (RBC) [Entitic vol]88.9 gHPqzvgv16.0-98.0UnMercy Health St. Charles HospitalComment on above:Performed By: #### [id number] #### [facility] ([facility]) [address] [place], [place] [address]INAZPSUDM (10*3/UL) IN BLOOD AUTOMATED ZKCKH212 10*3/uLNormal 150-400UnMercy Health St. Charles HospitalComment on above:Performed By: #### [id number] #### [facility] ([facility]) [address] [place] [place], [place] [address]DXV (Bld) [#/Vol]4.70 10*6/uLNormal3.80-5.00UnMercy Health St. Charles HospitalComment on above:Performed By: #### [id number] #### [facility] ([facility]) [address] [place], [place] [address]HWV (Bld) [#/Vol]6.18 10*3/uLNormal4.00-10.60UnMercy Health St. Charles HospitalComment on above:Performed By: #### [id number] #### [facility] ([facility]) [address] [place] [place], [place] [address]DIVWRGMhy 69-15-0358AWQQRYSQoeqt Nutrition Assessment: Name: Ruma Carlton Date: 1960 Date of Visit: 05/12/24 Admission Dx: Acute on chronic congestive heart failure, unspecified heart failure type ([facility]) [I50.9] Reason for assessment: MD referral (HF education) Information obtained from: patient, medical record, and nursing Past Medical History: Diagnosis Date Diabetes mellitus ([facility]) approx 2019 Disease of thyroid gland august [...] of Nutrition and Dietetics (AND) and the [place] Society of Enteral and Parenteral Nutrition (ASPEN). [...] To reach the Clinical Dietitian, please utilize [employer] chat Friday-Friday from 8AM-4PM or call extension [phone]. For weekends (Friday-Friday) and hols, the Clinical Dietitian can be reached via pager ([phone]) from 9AM-3PM. The Clinical Nutrition Department is unable to respond to [employer] Wave chat messages on Sundays and s.[facility] CenterCONSULT Attestation signed by Yash Leija MD at [...] chronic heart failure with preserved ejection fraction, [place] Heart Association functional class III, we will continue to optimize guideline directed medical therapy. It is also quite likely that he has coexistent paroxysmal atrial fibrillation and for that we will give him an event monitor at the time of discharge with likely plan for catheter ablation to maintain durable sinus rhythm in the future. Yash Leija MD, ScM, MSc Cardiac Plastic Injection Mold Maker Email: [email or web address] Cardiology Consult Note Reason for Consult: HF exacerbation HPI: Ruma Carlton is a 63 y.o. female with a past medical history significant for chronic congestive diastolic heart failure, coronary heart disease status post CABG x 3 on November 2023, hypothyroidism, paroxysmal atrial fibrillation, type 2 diabetes mellitus, hyperlipidemia, nicotine dependence, morbid obesity with BMI of 51.02. Patient [facility] from [facility] ER for possible heart catheterization. Patient presented to the [facility] ER on 05/10 with complaints of gradually progressive shortness of breath for 1-2 weeks. Patient endorsed exertional shortness of breath and weight gain of 4 at least 10 pounds. Endorsed bilateral lower extremity edema for the past few weeks. Workup at [facility] demonstrated elevated BNP, elevated troponin and EKG showing NSTEMI. Patient was admitted to the ICU at [facility] overnight and was placed on heparin [...] a past medical history of Diabetes mellitus ([facility]) (approx 2019), Disease of thyroid gland (august [...] mg, oral, Daily venlafax (more content not included)...NormalUnMercy Health St. Charles Hospital POCT GLUCOSE METER UNSOLICITED RESULTSon 27-57-1022Xxontsy [Mass/Vol]165 mg/dL Jjku71-026TdqbrrenssMercy Health St. Charles HospitalComment on above:Order Comment: Waived Testing in the ED is performed under the ED CLIA certificate #[id number]. Result Comment: wchasePerformed By: #### [id number] ####[facility] ([facility])[address] [place], [place] [address]Qpnryse [Mass/Vol]183 mg/hQJwcb78-801 [facility] HospitalComment on above:Order Comment: Waived Testing in the ED is performed under the ED CLIA certificate #[id number].Result Comment: hvgzmba0Ewqrohznl By: #### [id number] #### [facility] ([facility]) [address] [place], [place] [address]Nphyclh [Mass/Vol]152 mg/cUZktb04-040JmjkcepklxMercy Health St. Charles HospitalComment on above:Order Comment: Waived Testing in the ED is performed under the ED CLIA certificate #[id number].Result Comment: bflood Performed By: #### [id number] #### [facility] ([facility]) [address] [place] [place], [place] [address]Dudzeiy [Mass/Vol]189 mg/aGWowh67-794FdahwzzjihMercy Health St. Charles HospitalComment on above:Order Comment: Waived Testing in the ED is performed under the ED CLIA certificate #[id number].Result Comment: bflood Performed By: #### [id number] ####[facility] ([facility])[address] [facility], [place] [address]BUYZJOUXRIV VIRUS PCR PANELon 81-99-6582QTZUPAVQSM DETECTION BY PCRNot detectedNormalNot DetectedUnMercy Health St. Charles HospitalComment on above:Order Comment: Testing methodology is a multiplexed nucleic acid test intended for the simultaneousqualitative detection and differentiation of nucleic acids from multiple viral and bacterial respiratory organisms in nasopharyngeal swabs (SENIOR TECHNICAL ANALYST).Performed By: #### [id number] ####[facility] ([facility])[address] [facility], [place] [address]N. PARAPERTUSSIS DNANot detectedNormal Not DetectedUnMercy Health St. Charles HospitalComment on above:Order Comment: Testing methodology is a multiplexed nucleic acid test intended for the simultaneousqualitative detection and differentiation of nucleic acids from multiple viral and bacterial respiratory organisms in nasopharyngeal swabs (SENIOR TECHNICAL ANALYST).Performed By: #### [id number] ####[facility] ([facility])[address] [place], [place] [address]CEFMEYXDRK PERTUSSIS DNA PRESENCE IN UNSPECIFIED SPECIMEN BY WA*Not detectedNormalNot DetectedUnMercy Health St. Charles HospitalComment on above:Order Comment: Testing methodology is a multiplexed nucleic acid test intended for the simultaneousqualitative detection and differentiation of nucleic acids from multiple viral and bacterial respiratory organisms in nasopharyngeal swabs (SENIOR TECHNICAL ANALYST).Performed By: #### [id number] ####[facility] ([facility])[address], [place] [address]SQIBQSGCMUYPI PNEUMONIAENot detected NormalNot DetectedUnMercy Health St. Charles HospitalComment on above:Order Comment: Testing methodology is a multiplexed nucleic acid test intended for the simultaneousqualitative detection and differentiation of nucleic acids from multiple viral and bacterial respiratory organisms in nasopharyngeal swabs (SENIOR TECHNICAL ANALYST).Performed By: #### [id number] ####[facility] ([facility])[address], [place] [address]IVWXYDYEGIR 229ENot detectedNormalNot DetectedUnMercy Health St. Charles HospitalComment on above:Order Comment: Testing methodology is a multiplexed nucleic acid test intended for the simultaneousqualitative detection and differentiation of nucleic acids from multiple viral and bacterial respira tory organisms in nasopharyngeal swabs (SENIOR TECHNICAL ANALYST).Performed By: #### [id number] ####[facility] ([facility])[address], [place] [address]ZQSDSFKUKJF NCM6Pyh detectedNormalNot DetectedUnMercy Health St. Charles HospitalComment on above: Order Comment: Testing methodology is a multiplexed nucleic acid test intended for the simultaneousqualitative detection and differentiation of nucleic acids from multiple viral and bacterial respiratory organisms in nasopharyngeal swabs (SENIOR TECHNICAL ANALYST).Performed By: #### [id number] ####[facility] ([facility])[address], [place] [address]ZPZELHDYYBW PU34Cmz detectedNormalNot DetectedUnMercy Health St. Charles HospitalComment on above:Order Comment: Testing methodology is a multiplexed nucleic acid test intended for the simultaneousqualitative detection and differentiation of nucleic acids from multiple viral and bacterial respira tory organisms in nasopharyngeal swabs (SENIOR TECHNICAL ANALYST).Performed By: #### [id number] ####[facility] ([facility])[address], [place] [address]ENSCEGHGFMI UR02Ajx detectedNormalNot DetectedUnMercy Health St. Charles HospitalComment on above: Order Comment: Testing methodology is a multiplexed nucleic acid test intended for the simultaneousqualitative detection and differentiation of nucleic acids from multiple viral and bacterial respiratory organisms in nasopharyngeal swabs (SENIOR TECHNICAL ANALYST).Performed By: #### [id number] ####[facility] ([facility])[address] [place], [place] [address]KKWNN METAPNEUMOVIRUSNot detectedNormalNot DetectedUnMercy Health St. Charles HospitalComment on above:Order Comment: Testing methodology is a multiplexed nucleic acid test intended for the simultaneousqualitative detection and differentiation of nucleic acids from multiple viral and bacterial respiratory organisms in nasopharyngeal swabs (SENIOR TECHNICAL ANALYST).Performed By: #### [id number] ####[facility] ([facility])[address], [place] [address]WUJRF RHINOVIRUS+ENTEROVIRUSNot detectedNormalNot DetectedUnMercy Health St. Charles HospitalComment on above:Order Comment: Testing methodology is a multiplexed nucleic acid test intended for the simultaneousqualitative detection and differentiation of nucleic acids from multiple viral and bacterial respiratory organisms in nasopharyngeal swabs (SENIOR TECHNICAL ANALYST).Performed By: #### [id number] ####[facility] ([facility])[address], [place] [address]QMZMADDPI ANot detected NormalNot DetectedUnMercy Health St. Charles HospitalComment on above:Order Comment: Testing methodology is a multiplexed nucleic acid test intended for the simultaneousqualitative detection and differentiation of nucleic acids from multiple viral and bacterial respiratory organisms in nasopharyngeal swabs (SENIOR TECHNICAL ANALYST).Performed By: #### [id number] ####[facility] ([facility])[address], [place] [address]DEHTFXSKJ BNot detectedNormalNot DetectedUnMercy Health St. Charles HospitalComment on above:Order Comment: Testing methodology is a multiplexed nucleic acid test intended for the simultaneousqualitative detection and differentiation of nucleic acids from multiple viral and bacterial respira tory organisms in nasopharyngeal swabs (SENIOR TECHNICAL ANALYST).Performed By: #### [id number] ####[facility] ([facility])[address], [place] [address]ZZGGGXIGHI PNEUMONIAENot detectedNormalNot DetectedUnMercy Health St. Charles HospitalComment on above: Order Comment: Testing methodology is a multiplexed nucleic acid test intended for the simultaneousqualitative detection and differentiation of nucleic acids from multiple viral and bacterial respiratory organisms in nasopharyngeal swabs (SENIOR TECHNICAL ANALYST).Performed By: #### [id number] ####[facility] ([facility])[address], [place] [address]KVOYMAVDHFCRR 1Not detectedNormalNot DetectedUnMercy Health St. Charles HospitalComment on above:Order Comment: Testing methodology is a multiplexed nucleic acid test intended for the simultaneousqualitative detection and differentiation of nucleic acids from multiple viral and bacterial respira tory organisms in nasopharyngeal swabs (SENIOR TECHNICAL ANALYST).Performed By: #### [id number] ####[facility] ([facility])[address], [place] [address]UFRPWPAHJYOGU 2Not detectedNormalNot DetectedUnMercy Health St. Charles HospitalComment on above: Order Comment: Testing methodology is a multiplexed nucleic acid test intended for the simultaneousqualitative detection and differentiation of nucleic acids from multiple viral and bacterial respiratory organisms in nasopharyngeal swabs (SENIOR TECHNICAL ANALYST).Performed By: #### [id number] ####[facility] ([facility])[address], [place] [address]JJIBUSBZDAFFF 3Not detectedNormalNot DetectedUnMercy Health St. Charles HospitalComment on above:Order Comment: Testing methodology is a multiplexed nucleic acid test intended for the simultaneousqualitative detection and differentiation of nucleic acids from multiple viral and bacterial respira tory organisms in nasopharyngeal swabs (SENIOR TECHNICAL ANALYST).Performed By: #### [id number] ####[facility] ([facility])[address], [place] [address]MEVPGFDDXGGOU 4Not detectedNormalNot DetectedUnMercy Health St. Charles HospitalComment on above: Order Comment: Testing methodology is a multiplexed nucleic acid test intended for the simultaneousqualitative detection and differentiation of nucleic acids from multiple viral and bacterial respiratory organisms in nasopharyngeal swabs (SENIOR TECHNICAL ANALYST).Performed By: #### [id number] ####[facility] ([facility])[address] [place], [place] [address]NYFE SYNCYTIAL VIRUSNot detectedNormalNot DetectedUnMercy Health St. Charles HospitalComment on above:Order Comment: Testing methodology is a multiplexed nucleic acid test intended for the simultaneousqualitative detection and differentiation of nucleic acids from multiple viral and bacterial respiratory organisms in nasopharyngeal swabs (SENIOR TECHNICAL ANALYST).Performed By: #### [id number] ####[facility] ([facility])[address] [place] [id number]-PtN-1 (COVID-19) RNA CITLALY+probe Ql (Unsp spec)Not detectedNormalNot DetectedUnMercy Health St. Charles HospitalComment on above:Order Comment: Testing methodology is a multiplexed nucleic acid test intended for the simultaneousqualitative detection and differentiation of nucleic acids from multiple viral and bacterial respiratory organisms in nasopharyngeal swabs (SENIOR TECHNICAL ANALYST).Performed By: #### [id number] ####[facility] ([facility])[address] [place] [id number] Ion 17-81-5069Kmnoyhhn I.cardiac [Mass/Vol]0.03 ng/mLNormal0.00-0.04UnMercy Health St. Charles HospitalComment on above:Performed By: #### [id number] #### [facility] ([facility]) [address] [place], [place] [address]Hjeddbfm I.cardiac [Mass/Vol]0.04 ng/mLNormal0.00-0.04UnMercy Health St. Charles HospitalComment on above:Performed By: #### [id number] ####[facility] ([facility])[address] [place], [place] [address]FSVBNIMXUY MICROSCOPIC WITH REFLEX CULTUREon 64-98-6448YSL (#/HPF) IN URINE SEDIMENT3-5AbnormalNone Seen, 0-2UnMercy Health St. Charles HospitalComment on above:Performed By: #### [id number] #### [facility] ([facility]) [address] [place], [place] [address]YBMWTNHZ EPITHELIAL CELLS (#/LPF) IN URINE SEDIMENTModerate AbnormalNone Seen, Occasional, FewUnMercy Health St. Charles HospitalComment on above:Performed By: #### [id number] #### [facility] ([facility]) [address] [place], [place] [id number] (LEUKOCYTE) (#/HPF) IN URINE SEDIMENT6-10AbnormalNone Seen, 0-2UnMercy Health St. Charles HospitalComment on above:Performed By: #### [id number] #### [facility] ([facility]) [address] [place], [place] [address]NJXCFMGBAS WITH REFLEX CULTUREon 17-96-6727JENOYTHTD, TOTAL PRESENCE IN URINENegativeNormnhNegativeOhio Valley Surgical Hospital Comment on above:Performed By: #### [id number] #### [facility] ([facility]) [address] [place], [place] [address]Tdjtnwj (U)ClearNormalClearUnMercy Health St. Charles Hospital Comment on above:Performed By: #### [id number] #### [facility] ([facility]) [address] [place], [place] [address]Kaxid (U)Light-YellowNormalColorless, Yellow, Light-Yellow [facility] HospitalComment on above:Performed By: #### [id number] #### [facility] ([facility]) [address] [place], [place] [address]UZUQBUF (MG/DL) IN URINENormalNormalNormalUniversCleveland Clinic Marymount HospitalComment on above:Performed By: #### [id number] #### [facility] ([facility]) [address] [place], [place] [address]ELFLNXXBRP PRESENCE IN URINENegativeNormnhNegRegency Hospital Cleveland WestComment on above:Performed By: #### [id number] #### [facility] ([facility]) [address] [place], [place] [address]Rgrxyky Ql (U)NegativeNormalNegativeOhio Valley Surgical HospitalComment on above:Performed By: #### [id number] #### [facility] ([facility]) [address] [place], [place] [address]KWAPIPOOA ESTERASE PRESENCE IN URINE BY TEST STRIPSmallAbnormal NegativeOhio Valley Surgical HospitalComment on above:Performed By: #### [id number] #### [facility] ([facility]) [address] [place], [place] [address]OTFIZLT PRESENCE IN URINENegativeNormalNegativeUnMercy Health St. Charles HospitalComment on above:Performed By: #### [id number] #### [facility] ([facility]) [address] [place] [id number] (U)6.0 [pH]Normal5.0-8.0[facility] Comment on above:Performed By: #### [id number] #### [facility] ([facility]) [address] [place] [address]Mzggtqj (U) [Mass/Vol]NegativeNormalNegativeUnMercy Health St. Charles HospitalComment on above:Performed By: #### [id number] #### [facility] ([facility]) [address] [place] [id number] gravity (U) [Rel density]1.789Extyca7.010-1.030 [facility] HospitalComment on above:Performed By: #### [id number] #### [facility] ([facility]) [address] [place] [id number] (MG/DL) IN URINENormalNormalNormalUniversCleveland Clinic Marymount HospitalComment on above:Performed By: #### [id number] #### [facility] ([facility]) [address] [place] [id number] 73-79-2234LFVZIBNDB PARTIAL THROMBOPLASTIN TIME IN PPP BY COAGULATION ASSAY27.4 NwdloxdQbczam85.0-35.0UnMercy Health St. Charles Hospital Comment on above:Order Comment: Baseline aPTT before initiating heparin infusion.Result Comment: Clinical significance of the APTT is questionable in the presence of heparin.Performed By: #### [id number] #### [facility] ([facility]) [address] [place] [id number] partial thromboplastin time (aPTT) in platelet poor plasma by coagulation aon 09-82-4327cVRA Coag (PPP) [Time]Activated partial thromboplastin time (aPTT) in platelet poor plasma by coagulation a22.3-36.2 [facility] [place] [facility] HospitalB-TYPE NATRIURETIC PEPTIDEon 05-11-2024 Natriuretic peptide B (Bld) [Mass/Vol]537 pg/mLHigh0-100UnMercy Health St. Charles HospitalComment on above:Performed By: #### [id number] #### [facility] ([facility]) [address] [place], [place] [address]Rhbrzbflx Auto (Bld) [#/Vol]on 95-90-5967Uzebdobqj (Bld) [#/Vol] Automated basophil count0.0-0.1FMercy HealthBasophils/100 WBC Auto (Bld)on 50-77-6038Fypjxjgli/100 WBC (Bld)Automated basophil %0.2-2.[address] [facility] [address] WITH AUTO DIFFERENTIALon 05-11-2024 Basophils (Bld) [#/Vol]0.10 10*3/uLNormal0.00-0.20UnMercy Health St. Charles HospitalComment on above:Performed By: #### [id number] ####[facility] ([facility])[address] [place], [place] [address]Wqwjrigtb/100 WBC (Bld)1.3 %High 0.0-1.0UnMercy Health St. Charles HospitalComment on above:Performed By: #### [id number] ####[facility] ([facility])[address] [place] [address] Eosinophils (Bld) [#/Vol]0.31 10*3/uLNormal0.00-0.50UnMercy Health St. Charles HospitalComment on above:Performed By: #### [id number] ####[facility] ([facility])[address] [place], [place] [address]Nobjozwaqck/100 WBC (Bld)4.0 %Normal 0.0-6.0UnMercy Health St. Charles HospitalComment on above:Performed By: #### [id number] ####[facility] ([facility])[address] [place] [address] Erythrocyte distribution width (RBC) [Ratio]13.9 %Cuuvuz28.5-15.0UnMercy Health St. Charles HospitalComment on above:Performed By: #### [id number] ####[facility] ([facility])[address] [place], [place] [address]NUEFKAPHUBR MEAN CORPUSCULAR HEMOGLOBIN CONCENTRATION (G/DL) BY UCUBRZXQZ72.7 g/bJRitpvh75.0-35.0 [facility] HospitalComment on above:Performed By: #### [id number] ####[facility] ([facility])[address] [place], [place] [address]Pqhilwnotd (Bld) [Volume fraction]41.6 %Tcddew39.0-48.0UnMercy Health St. Charles Hospital Comment on above:Performed By: #### [id number] ####[facility] ([facility])[address] [place], [place] [address]Hvbldoeblx (Bld) [Mass/Vol]14.0 g/fWJirmdz19.0-15.0 [facility] HospitalComment on above:Performed By: #### [id number] ####[facility] ([facility])[address] [place], [place] [address]Mrsisuuh granulocytes (Bld) [#/Vol]0.03 10*3/uLNormal0.00-0.20UnMercy Health St. Charles HospitalComment on above:Performed By: #### [id number] ####[facility] ([facility])[address] [place], [place] [address]Njomndan granulocytes/100 WBC (Bld)0.4 %Normal0.0-1.0UnMercy Health St. Charles HospitalComment on above:Performed By: #### [id number] ####[facility] ([facility])[address] [place], [place] [address] Lymphocytes (Bld) [#/Vol]2.25 10*3/uLNormal1.20-4.00UnMercy Health St. Charles HospitalComment on above:Performed By: #### [id number] ####[facility] ([facility])[address] [place], [place] [address]Qnzchfvxlwz/100 WBC (Bld)29.3 %Normal 20.0-45.0UnMercy Health St. Charles HospitalComment on above:Performed By: #### [id number] ####[facility] ([facility])[address] [place] [id number] (RBC) [Entitic mass]28.9 fwHonmob77.0-33.0UnMercy Health St. Charles Hospital Comment on above:Performed By: #### [id number] ####[facility] ([facility])[address] [place], [place] [id number] (RBC) [Entitic vol]86.0 yGTyovcs77.0-98.0 [facility] HospitalComment on above:Performed By: #### [id number] ####[facility] ([facility])[address] [place], [place] [address]Lfatpdqre (Bld) [#/Vol]0.50 10*3/uLNormal0.10-1.00UnMercy Health St. Charles HospitalComment on above:Performed By: #### [id number] ####[facility] ([facility])[address] [place], [place] [address]Paturiplk/100 WBC (Bld)6.5 %Normal5.0-12.0UnMercy Health St. Charles HospitalComment on above:Performed By: #### [id number] ####[facility] ([facility])[address] [place], [place] [address]Teayokcwcfp (Bld) [#/Vol] 4.50 10*3/uLNormal1.60-7.60UnMercy Health St. Charles HospitalComment on above: Performed By: #### [id number] ####[facility] ([facility])[address] [place], [place] [address]Ntjaygaxxqv/100 WBC (Bld)58.5 %Mwqffw98.0-72.0UnMercy Health St. Charles HospitalComment on above:Performed By: #### [id number] ####[facility] ([facility])[address] [place] [id number] (PER 100 WBCS) BY AUTOMATED COUNT0.0 %Yiijpd7RycyfzozfhMercy Health St. Charles HospitalComment on above: Performed By: #### [id number] ####[facility] ([facility])[address] [place] [address]RFWIMDGHJ (10*3/UL) IN BLOOD AUTOMATED LLIFY347 10*3/uLNormal 150-400UnMercy Health St. Charles HospitalComment on above:Performed By: #### [id number] ####[facility] ([facility])[address] [place] [address]CKC (Bld) [#/Vol]4.84 10*6/uLNormal3.80-5.00UnMercy Health St. Charles Hospital Comment on above:Performed By: #### [id number] ####[facility] ([facility])[address] [place] [address]EIB (Bld) [#/Vol]7.69 10*3/uLNormal4.00-10.60 [facility] HospitalComment on above:Performed By: #### [id number] ####[facility] ([facility])[address] [place], [place] [address]YYVQWIXZSUVLM METABOLIC PANELon 50-56-2121Ztgofyl [Mass/Vol]4.1 g/dLNormal3.5-5.7UnMercy Health St. Charles HospitalComment on above:Performed By: #### [id number] ####[facility] ([facility])[address] [place], [place] [address]AQK [Catalytic activity/Vol]128 U/KKkfg97-213NvnaohzbrcMercy Health St. Charles HospitalComment on above:Performed By: #### [id number] ####[facility] ([facility])[address] [place], [place] [address]NEJ [Catalytic activity/Vol]13 U/LNormal7-52UnMercy Health St. Charles HospitalComment on above:Performed By: #### [id number] ####[facility] ([facility])[address] [place], [place] [address]Ahihn gap [Moles/Vol]13 mmol/L Normal7-20UnMercy Health St. Charles HospitalComment on above:Performed By: #### [id number] ####[facility] ([facility])[address] [place], [place] [address]YLZ [Catalytic activity/Vol]18 U/LEnwhgm15-02PtxyxcjmbjMercy Health St. Charles Hospital Comment on above:Performed By: #### [id number] ####[facility] ([facility])[address] [place], [place] [address]Kclaeargt [Mass/Vol]0.4 mg/dLNormal0.3-1.0 [facility] HospitalComment on above:Performed By: #### [id number] ####[facility] ([facility])[address] [place], [place] [address]Ernqsbn [Mass/Vol]8.9 mg/dLNormal8.6-10.3UnMercy Health St. Charles HospitalComment on above:Performed By: #### [id number] ####[facility] ([facility])[address] [place], [place] [address]Fmdblebk [Moles/Vol]98 mmol/WFuflgj47-548QsbqobgrxiMercy Health St. Charles HospitalComment on above:Performed By: #### [id number] ####[facility] ([facility])[address] [place], [place] [address]BF2 [Moles/Vol]27 mmol/WCowenn52-58 [facility] HospitalComment on above:Performed By: #### [id number] ####[facility] ([facility])[address] [place], [place] [address]Nqxuhtcxhx [Mass/Vol]0.98 mg/dLNormal0.60-1.20UnMercy Health St. Charles HospitalComment on above:Performed By: #### [id number] ####[facility] ([facility])[address] [place], [place] [address]HFSLTWYKZN FILTRATION RATE ML/MIN/1.73 SQ M.FUKKHRPSV39.3 mL/min/1.73m*2Normal>60.0UnMercy Health St[address] Charles HospitalComment on above: Result Comment: [facility]???s estimated glomerular filtration rate (eGFR) will [...] anyone group of individuals.Performed By: #### [id number] ####[facility] ([facility])[address] [facility] [place] [address]Kemzoic [Mass/Vol]151 mg/vESvdt99-602FagbepovurMercy Health St. Charles HospitalComment on above:Performed By: #### [id number] ####[facility] ([facility])[address] [place], [place] [address]Zyhkjmklo [Moles/Vol]3.8 mmol/L Normal3.5-5.1UnMercy Health St. Charles HospitalComment on above:Performed By: #### [id number] ####[facility] ([facility])[address] [facility] [place] [address] Protein [Mass/Vol]7.0 g/dLNormal6.0-8.3UnMercy Health St. Charles Hospital Comment on above:Performed By: #### [id number] ####[facility] ([facility])[address] [facility] [place] [address]Ynausa [Moles/Vol]134 mmol/KCea567-771GvgyofzpdbMercy Health St. Charles HospitalComment on above:Performed By: #### [id number] ####[facility] ([facility])[address]INK[address] [place] [address]Nnfg nitrogen [Mass/Vol] 16 mg/dLNormal7-25UnMercy Health St. Charles HospitalComment on above:Performed By: #### [id number] ####[facility] ([facility])[address] [facility] [place] [address] UREA NITROGEN/CREATININE (MASS RATIO) IN SER/PLAS16.3NormalUniversCleveland Clinic Marymount HospitalComment on above:Performed By: #### [id number] ####[facility] ([facility])[address] [place], [place] [address]Pwrbthbpxqh/100 WBC Auto (Bld)on 20-01-1865Ykeztshpmbu/100 WBC (Bld)Automated eosinophil %0.9-7.0[facility] [place] [facility] HospitalErythrocyte distribution width Auto (RBC) [Ratio]on 89-56-6075Gkomnljspxt distribution width (RBC) [Ratio]Erythrocyte distribution width [Ratio] by Automated count11.0-15.0[facility] Estimated glomerular filtration rate (GFR) non- Americanon 05-11-2024 GFR/1.73 sq M.predicted among non-blacks MDRD (S/P/Bld) [Vol rate/Area]Estimated glomerular filtration rate (GFR) non- AmericanLow>=60 mL/min/1.73m 2 [facility] [place] [facility] HospitalHematocrit Auto (Bld) [Volume fraction]on 05-20-4904Sukuetubtn (Bld) [Volume fraction]Hematocrit [Volume Fraction] of Blood by Automated count36.0-48.0[facility] [place] [facility] HospitalHemoglobin [Mass/volume] in Bloodon 51-26-5330Knnwvrlrbt (Bld) [Mass/Vol]Hemoglobin [Mass/volume] in Blood12.0-16.0[facility] [place] [facility] HospitalINR in Platelet poor plasma by Coagulation assayon 80-75-9152UPF Coag (PPP) [Relative time]INR in Platelet poor plasma by Coagulation assayEast [place] Regional Hospital Comment on above:DESIRED INR:2.0-3.0 CONDITIONS NOT LISTED BELOW2.5-3.5 FOR PROSTHETIC HEART VALVE REPLACEMENT2.5-3.5 RECURRENT THROMBOSISLaboratory - Chemistry and Chemistry - challengeon 61-12-3194Vdcuvga [Mass/Vol]9.2 mg/dL 8.5-10.1FMercy HealthChloride [Moles/Vol]103 mmol/L98-107 [facility] [place] [facility] HospitalCO2 [Moles/Vol]30.0 mmol/L21.0-32.0[facility] [place] [facility] HospitalCreatinine [Mass/Vol]1.17 mg/dLHigh0.55-1.02[facility] [place] [facility] HospitalGFR/1.73 sq M.predicted MDRD (S/P/Bld) [Vol rate/Area]57 mL/min/{1.73_m2}Low>=60 mL/min/1.73m 2FMercy HealthGlucose [Mass/Vol]127 mg/kQYdjd35-769RwlotopuaEast [place] Regional HospitalPotassium [Moles/Vol]3.7 mmol/L3.5-5.1FMercy Memorial Hospitalodium [Moles/Vol] 139 mmol/G201-145VsarvormzEast [place] Regional HospitalUrea nitrogen [Mass/Vol]15.0 mg/dL7.0-18.0[facility] [place] [facility] HospitalUrea nitrogen/Creatinine [Mass ratio]12.8 mg/mgEast [place] Regional HospitalLaboratory - Coagulationon 72-88-0109uLWO Coag (Bld) [Time]36.6 sCritically low43.5-61.5FMercy HealthComment on above:RESULTS CALLED TO SHAYLA ESPINOSA RN @BY Ruby Keith at 1902Laboratory - Hematology and Cell countson 42-05-3059Lfudvtkp granulocytes/100 WBC (Bld)0.3 %0.0-0.5FMercy HealthLeukocytes [#/volume] corrected for nucleated erythrocytes in Blood by Automated counon 65-08-6935ZXS corrected for nucl RBC Auto (Bld) [#/Vol]Leukocytes [#/volume] corrected for nucleated erythrocytes in Blood by Automated coun4.0-11.0[facility] [place] [facility] HospitalLymphocytes Auto (Bld) [#/Vol]on 51-64-3037Wzigqbyaejm (Bld) [#/Vol]Lymphocytes [#/volume] in Blood by Automated count1.2-3.8[facility] [place] [facility] HospitalLymphocytes/100 WBC Auto (Bld)on 93-47-2660Aswbaqmspsg/100 WBC (Bld)Lymphocytes/100 leukocytes in Blood by Automated count20.5-60.0[facility] [place] [facility] HospitalMAGNESIUMon 56-70-1502Kfcrxqjit [Mass/Vol]2.2 mg/dLNormal1.9-2.7[facility] HospitalComment on above:Performed By: #### [id number] #### [facility] ([facility]) [address] [place], [place] [address]RBN Auto (RBC) [Entitic mass]on 45-76-3988VKH (RBC) [Entitic mass]MCH [Entitic mass] by Automated count26.7-34.0[facility] [place] [facility] HospitalMCHC Auto (RBC) [Mass/Vol]on 16-16-1620TRLP (RBC) [Mass/Vol]MCHC [Mass/volume] by Automated count29.9-35.2FMercy HealthMCV Auto (RBC) [Entitic vol]on 07-19-3817VMJ (RBC) [Entitic vol]MCV [Entitic volume] by Automated count81.0-99.0[facility] [place] [facility] HospitalMonocytes Auto (Bld) [#/Vol]on 06-70-1605Azqpecpzy (Bld) [#/Vol]Automated blood monocyte count0.3-0.8 [facility] [place] [facility] HospitalMonocytes/100 WBC Auto (Bld)on 05-11-2024 Monocytes/100 WBC (Bld)Automated monocyte %1.7-12.0[facility] [place] [facility] HospitalNeutrophils Auto (Bld) [#/Vol]on 05-81-6542Lzkmjelpxll (Bld) [#/Vol] Neutrophils [#/volume] in Blood by Automated count1.4-6.5FMercy HealthNeutrophils/100 WBC Auto (Bld)on 64-69-3716Eijhlczifgc/100 WBC (Bld)Automated neutrophil %43.0-75.0[facility] [place] [facility] HospitalNo Panel Informationon 46-73-1669Lasigici I High Hdjqzswdczf1134.8 pg/mLCritically high 4.0-51.3FMercy HealthComment on above:RESULTS CALLED TO JOSE CRUZ RN [...] AND CLINICAL INFORMATION.Eosinophils # (Auto)0.4 10 3/uL 0.0-0.7FMercy HealthImmature Granulocyte # (Auto)0.02 10 3/uL0.00-0.03[facility] [place] [facility] HospitalPHOSPHORUSon 85-37-4827Yttlqzwms [Mass/Vol]3.1 mg/dLNormal2.5-5.0UnMercy Health St. Charles HospitalComment on above:Performed By: #### [id number] ####[facility] ([facility])[address] [place], [place] [address]UAMO GLUCOSE METER UNSOLICITED RESULTSon 14-01-9368Qqjhhcd [Mass/Vol]163 mg/nHXtxj14-454UtwzovlizoMercy Health St. Charles HospitalComment on above:Order Comment: Waived Testing in the ED is performed under the ED CLIA certificate #[id number].Result Comment: ulngy7Uezlwvucx By: #### [id number] #### [facility] ([facility]) [address] [place], [place] [address]ROZLNIA-YXAib 66-87-1511DZU IN PPP BY COAGULATION ASSAY0.99 Normal0.90-1.10UnMercy Health St. Charles HospitalComment on above:Result Comment: ACC RECOMMENDED INR [...] OPTIMAL THERAPEUTIC RANGE. CHEST 1995;108:231S-246S.Performed By: #### [id number] #### [facility] ([facility]) [address] [place], [place] [address]TZOOFWZWKDO TIME (PT) IN PPP BY COAGULATION ASSAY13.1 Seconds Zitwoi54.3-14.8UnMercy Health St. Charles HospitalComment on above:Performed By: #### [id number] #### [facility] ([facility]) [address] [place], [place] [address]Gxypcgls mean volume Auto (Bld) [Entitic vol]on 05-11-2024 Platelet mean volume (Bld) [Entitic vol]Platelet mean volume [Entitic volume] in Blood by Automated count9.5-13.5FMercy HealthPlatelets Auto (Bld) [#/Vol]on 28-64-5472Ygqpwpvwj (Bld) [#/Vol]Platelets [#/volume] in Blood by Automated ctalc991-786VcbhepbpaEast [place] Regional HospitalProthrombin time (PT) on 68-59-0643BY Coag (PPP) [Time]Prothrombin time (PT)9.0-11.6FMercy HealthRBC Auto (Bld) [#/Vol]on 42-95-2972KPE (Bld) [#/Vol]Erythrocytes [#/volume] in Blood by Automated count4.20-5.40[facility] Serum or plasma anion gap determinationon 20-12-3971Ndbwd gap [Moles/Vol]Serum or plasma anion gap determinationEast [place] Regional HospitalTROPONIN Ion 34-50-0951Vaihufwf I.cardiac [Mass/Vol]0.06 ng/mLHigh0.00-0.04UnMercy Health St. Charles HospitalComment on above:Performed By: #### [id number] ####[facility] ([facility])[address] [place], [place] [address]Qhvmwgzzp Auto (Bld) [#/Vol]on 92-19-5718Prglhrlhq (Bld) [#/Vol]Automated basophil count0.0-0.1 [facility] [place] [facility] HospitalBasophils/100 WBC Auto (Bld)on 05-10-2024 Basophils/100 WBC (Bld)Automated basophil %0.2-2.0[facility] [place] [facility] HospitalEosinophils/100 WBC Auto (Bld)on 64-63-6650Iacroyawdvh/100 WBC (Bld) Automated eosinophil %0.9-7.0[facility] [place] [facility] HospitalErythrocyte distribution width Auto (RBC) [Ratio]on 66-20-8513Qgmsythlasu distribution width (RBC) [Ratio]Erythrocyte distribution width [Ratio] by Automated count11.0-15.0 [facility] [place] [facility] HospitalEstimated glomerular filtration rate (GFR) non- Americanon 54-16-0583BTO/1.73 sq M.predicted among non-blacks MDRD (S/P/Bld) [Vol rate/Area]Estimated glomerular filtration rate (GFR) non- AmericanLow>=60 mL/min/1.73m 2FMercy HealthGlobulin Calc (S) [Mass/Vol]on 68-00-4151Kmnqwezg (S) [Mass/Vol]Serum globulin measurement by calculation (mass/volume)[facility] [place] [facility] HospitalHematocrit Auto (Bld) [Volume fraction]on 38-05-3435Qbyazizwdy (Bld) [Volume fraction]Hematocrit [Volume Fraction] of Blood by Automated count36.0-48.0[facility] [place] [facility] HospitalHemoglobin [Mass/volume] in Bloodon 48-61-8388Ondzvxttej (Bld) [Mass/Vol] Hemoglobin [Mass/volume] in Blood12.0-16.0[facility] Laboratory - Chemistry and Chemistry - challengeon 43-15-0830Avzbkjj [Mass/Vol] 3.5 g/dL3.4-5.0[facility] [place] [facility] HospitalALP [Catalytic activity/Vol]144 U/EEwsf33-690DfjhosnooEast [place] Regional HospitalALT [Catalytic activity/Vol]21 U/L 14-59[facility] [place] [facility] HospitalAST [Catalytic activity/Vol]22 U/L15-37 [facility] [place] [facility] HospitalBilirubin [Mass/Vol]0.5 mg/dL0.2-1.0[facility] [place] [facility] HospitalCalcium [Mass/Vol]9.3 mg/dL8.5-10.1FMercy HealthChloride [Moles/Vol]102 mmol/J14-160SgzkogvetEast [place] Regional HospitalCO2 [Moles/Vol]29.0 mmol/L21.0-32.0[facility] Creatinine [Mass/Vol]1.17 mg/dLHigh0.55-1.02[facility] GFR/1.73 sq M.predicted MDRD (S/P/Bld) [Vol rate/Area]57 mL/min/{1.73_m2}Low>=60 mL/min/1.73m 2FMercy HealthGlucose [Mass/Vol]142 mg/dLHigh 74-106[facility] [place] [facility] HospitalNatriuretic peptide B (Bld) [Mass/Vol] 1140.0 pg/mLHigh<=900.0[facility] [place] [facility] HospitalPotassium [Moles/Vol]4.4 mmol/L3.5-5.1FMercy HealthProtein [Mass/Vol]7.4 g/dL6.4-8.2 [facility] [Moles/Vol]138 mmol/B117-181HsehjijonEast [place] Regional HospitalUrea nitrogen [Mass/Vol]14.0 mg/dL7.0-18.0[facility] HospitalUrea nitrogen/Creatinine [Mass ratio]12.0 mg/mgEast [place] [facility] HospitalLaboratory - Hematology and Cell countson 05-10-2024 Immature granulocytes/100 WBC (Bld)0.4 %0.0-0.5FMercy Health Leukocytes [#/volume] corrected for nucleated erythrocytes in Blood by Automated counon 99-64-7818YAE corrected for nucl RBC Auto (Bld) [#/Vol]Leukocytes [#/volume] corrected for nucleated erythrocytes in Blood by Automated coun 4.0-11.0[facility] HospitalLymphocytes Auto (Bld) [#/Vol]on 31-06-7176Geyzvghghto (Bld) [#/Vol]Lymphocytes [#/volume] in Blood by Automated count1.2-3.8[facility] HospitalLymphocytes/100 WBC Auto (Bld)on 19-64-4796Odohigqgwkv/100 WBC (Bld)Lymphocytes/100 leukocytes in Blood by Automated fzzbkNwt88.5-60.0[facility] HospitalH Auto (RBC) [Entitic mass]on 02-38-3112OYP (RBC) [Entitic mass]MCH [Entitic mass] by Automated count26.7-34.0[facility] [place] [facility] HospitalMCHC Auto (RBC) [Mass/Vol]on 64-78-4260PALC (RBC) [Mass/Vol]MCHC [Mass/volume] by Automated count29.9-35.2FOhioHealth Berger HospitalV Auto (RBC) [Entitic vol]on 63-53-0788ZME (RBC) [Entitic vol]MCV [Entitic volume] by Automated count 81.0-99.0[facility] HospitalMonocytes Auto (Bld) [#/Vol]on 28-96-0002Ihaxtdbir (Bld) [#/Vol]Automated blood monocyte count0.3-0.8[facility] [place] [facility] HospitalMonocytes/100 WBC Auto (Bld)on 32-97-4547Odycdcyxu/100 WBC (Bld)Automated monocyte %1.7-12.0[facility] Neutrophils Auto (Bld) [#/Vol]on 86-98-7156Ftixsxceafx (Bld) [#/Vol]Neutrophils [#/volume] in Blood by Automated count1.4-6.5FMercy Health Neutrophils/100 WBC Auto (Bld)on 24-02-2346Yebnwzdccvt/100 WBC (Bld)Automated neutrophil %43.0-75.0[facility] HospitalNo Panel Informationon 66-24-0547Liuvhtdy I High Djaphcugudj820.2 pg/mLCritically high4.0-51.3FMercy HealthComment on above:RESULTS CALLED TO ESTHER KENDRICK RN [...] DIAGNOSTIC AND CLINICAL INFORMATION.Eosinophils # (Auto)0.4 10 3/uL0.0-0.7FMercy HealthImmature Granulocyte # (Auto) 0.03 10 3/uL0.00-0.03[place] [facility] HospitalPlatelet mean volume Auto (Bld) [Entitic vol]on 46-32-5651Bcdarcxn mean volume (Bld) [Entitic vol]Platelet mean volume [Entitic volume] in Blood by Automated count9.5-13.5FMercy HealthPlatelets Auto (Bld) [#/Vol]on 48-31-9193Swbgqdtgo (Bld) [#/Vol]Platelets [#/volume] in Blood by Automated anvjx062-813MeoiiuoipEast Ohio Regional HospitalRBC Auto (Bld) [#/Vol]on 54-85-7108XRM (Bld) [#/Vol]Erythrocytes [#/volume] in Blood by Automated count4.20-5.40[facility] Serum or plasma albumin/globulin mass ratioon 92-99-2271Rwrrkak/Globulin [Mass ratio]Serum or plasma albumin/globulin mass ratioAdams County Hospitalerum or plasma anion gap determinationon 64-69-1177Xmpif gap [Moles/Vol] Serum or plasma anion gap determinationEast [facility] Regional Hospital29on 50-13-576422Pkaqjiiq created 02/19/24 0942 by Mario Bermudez MD Delete clinical noteNormalUniversity [facility]29Addendum created 02/19/24 0941 by Mario Bermudez MD Delete clinical noteNormalUniversity of Heart Hospital Of AustinOffice Visiton [id number]-up [id number] Ruma Carlton 1960 F Date Provider Department [...] Alive Nephew Alive Neg Hx Level of Service:05894 [place] OFFICE/OUTPATIENT ESTABLISHED LOW MDM 20 [facility]29on [id number] by: PALMIRA KELLEY on: 01/22/2024 02:27 PM Modules accepted: OrdersNormalUniversity Ashtabula County Medical CenterOrders Onlyon 49-48-8243Pgfxha [id number] Brandt,Ruma K 1960 F Date Provider Department [...] Daughter Alive Nephew Alive Neg HxNormalUniversCleveland Clinic Marymount HospitalNatriuretic peptide B [Mass/Vol] Ordered By: Gale Navarro on 36-51-8609Wvxvfpyqbdu peptide B (Bld) [Mass/Vol] 648.0 pg/mLHigh5-100[facility] [place] [facility] HospitalTroponin I.cardiac [Mass/volume] in Serum or Plasma by Detection limit <= 0.01 ng/Ordered By: Gale Navarro on 87-20-5496Adtuujkg I.cardiac DL <= 0.01 ng/mL [Mass/Vol]36.1 pg/mLHigh0.0-15.0[facility] [place] [facility] HospitalAlanine aminotransferase [Enzymatic activity/volume] in Serum or PlasmaOrdered By: Barby Chen on 08-37-4820IKP [Catalytic activity/Vol]15 U/L7-52[facility] [place] [facility] HospitalAlbumin [Mass/volume] in Serum or Plasma by Bromocresol green (BCG) dye binding methoOrdered By: Barby Chen on 24-31-9069Rrvgfed BCG dye [Mass/Vol] 4.3 g/dL3.5-5.7[facility] CenterAlkaline phosphatase [Enzymatic activity/volume] in Serum or PlasmaOrdered By: Barby Chen on 36-37-0333XZK [Catalytic activity/Vol]87 U/H15-910WnjjvvndsEast Ohio Regional HospitalAspartate aminotransferase [Enzymatic activity/volume] in Serum or PlasmaOrdered By: Barby Chen on 17-54-9836MJN [Catalytic activity/Vol]20 U/L30-27IsnyjouuqEast Ohio Regional HospitalBasophils Auto (Bld) [#/Vol]Ordered By: Barby Chen on 59-44-7115Iuyqibpbb (Bld) [#/Vol]0.1 10*3/uL0.0-0.2FMercy HealthBasophils/100 WBC Auto (Bld)Ordered By: Barby Chen on 12-02-2023 Basophils/100 WBC (Bld)0.9 %.[facility] HospitalBilirubin.total [Mass/volume] in Serum or PlasmaOrdered By: Barby Chen on 12-02-2023 Bilirubin [Mass/Vol]0.6 mg/dL0.3-1.0[facility] [place] [facility] HospitalCalcium [Mass/volume] in Serum or PlasmaOrdered By: Barby Chen on 80-89-3283Ckxtven [Mass/Vol]9.5 mg/dL8.6-10.3FMercy HealthCarbon dioxide, total [Moles/volume] in Serum or PlasmaOrdered By: Barby Chen on 12-02-2023 CO2 [Moles/Vol]27.8 mmol/L21.0-31.0[facility] [place] [facility] HospitalChloride [Moles/volume] in Serum or PlasmaOrdered By: Barby Chen on 12-02-2023 Chloride [Moles/Vol]98 mmol/J84-811XbuhqzveyEast Ohio Regional HospitalCreatinine [Mass/volume] in Serum or PlasmaOrdered By: Barby Chen on 12-02-2023 Creatinine [Mass/Vol]0.88 mg/dL0.60-1.20[facility] Eosinophils Auto (Bld) [#/Vol]Ordered By: Barby Chen on 12-02-2023 Eosinophils (Bld) [#/Vol]0.0 10*3/uL0.0-0.45[facility] Eosinophils/100 WBC Auto (Bld)Ordered By: Barby Chen on 12-02-2023 Eosinophils/100 WBC (Bld)0.1 %.[facility] HospitalErythrocyte distribution width Auto (RBC) [Ratio]Ordered By: Barby Chen on 12-02-2023 Erythrocyte distribution width (RBC) [Ratio]13.3 %11.9-15.3FMercy HealthErythrocyte sedimentation rate by Photometric methodOrdered By: Barby Chen on 72-65-2981WHU Photometric method (Bld) [Velocity]37 mm/hrHigh 0-29[facility] [place] [facility] HospitalGlobulin Calc (S) [Mass/Vol]Ordered By: Barby Chen on 20-11-0372Clitlmde (S) [Mass/Vol]3.0 g/dLEast Ohio Regional HospitalGlucose [Mass/volume] in Serum or PlasmaOrdered By: Barby Chen on 28-85-3110Tzpodmp [Mass/Vol]126 mg/sVIkqw89-649HqyeeazncEast Ohio Regional HospitalComment on above:ADA recommended reference rangeRandom Glucose Reference Range is dependent on time and content of last meal. Glucose of more than 200 mg/dL in a nonstressed, ambulatory subject supports the diagnosisof Diabetes Mellitus.Hematocrit Auto (Bld) [Volume fraction]Ordered By: Barby Chen on 69-66-1156Cntetslaqf (Bld) [Volume fraction]45.3 %34.0-46.4FMercy HealthHemoglobin [Mass/volume] in BloodOrdered By: Barby Chen on 05-23-3033Mhouwjngmm (Bld) [Mass/Vol]15.7 g/wMEkqs48.8-15.4FMercy HealthLeukocytes [#/volume] corrected for nucleated erythrocytes in Blood by Automated counOrdered By: Barby Chen on 29-21-1265FLL corrected for nucl RBC Auto (Bld) [#/Vol]7.9 10*3/uL3.8-11.6FMercy Health Lymphocytes Auto (Bld) [#/Vol]Ordered By: Barby Chen on 12-02-2023 Lymphocytes (Bld) [#/Vol]1.2 10*3/uL1.00-4.8[facility] Lymphocytes/100 WBC Auto (Bld)Ordered By: Barby Chen on 12-02-2023 Lymphocytes/100 WBC (Bld)14.9 %.[facility] HospitalH Auto (RBC) [Entitic mass]Ordered By: Barby Chen on 81-94-2041ZYB (RBC) [Entitic mass] 31.6 pg24.7-34.3FMercy HealthMCHC Auto (RBC) [Mass/Vol] Ordered By: Barby Chen on 16-82-0564FKKQ (RBC) [Mass/Vol]34.7 g/dL32.0-35.0 [facility] [place] [facility] HospitalMCV Auto (RBC) [Entitic vol]Ordered By: Barby Chen on 57-00-8604WZY (RBC) [Entitic vol]91.1 yF45-471UhisgdebwEast Ohio Regional HospitalMonocytes Auto (Bld) [#/Vol]Ordered By: Barby Chen on 06-83-8353Wvswlvqdp (Bld) [#/Vol]0.5 10*3/uL0.0-0.8[facility] [place] [facility] HospitalMonocytes/100 WBC Auto (Bld)Ordered By: Barby Chen on 12-02-2023 Monocytes/100 WBC (Bld)6.3 %.[facility] [place] [facility] HospitalNeutrophils Auto (Bld) [#/Vol]Ordered By: Barby Chen on 76-22-0806Tajzgidceez (Bld) [#/Vol] 6.2 10*3/uL1.8-7.7FMercy HealthNeutrophils/100 WBC Auto (Bld)Ordered By: Barby Chen on 13-11-1875Dpvquqnnlre/100 WBC (Bld)77.8 %. [facility] HospitalNo Panel InformationOrdered By: Barby Chen on 03-25-1897Ntincehga GFR (CKD-EPI)> 60.0 mL/MinEast Ohio Regional HospitalPharmacy Creatinine Clearance (ChemN/AFMercy Health Nucleated erythrocytes [Presence] in Blood by Automated countOrdered By: Barby Chen on 30-75-9489Pokuyjswa RBC Auto Ql (Bld)0.1 /100{WBC}0-0.5FMercy HealthPlatelet mean volume Auto (Bld) [Entitic vol]Ordered By: Barby Chen on 66-88-1198Aoiidkue mean volume (Bld) [Entitic vol]7.6 fL 6.3-10.7FMercy HealthPlatelets Auto (Bld) [#/Vol]Ordered By: Barby Chen on 41-60-3386Wnrllklwf (Bld) [#/Vol]301 10*3/uP256-631NsmylptebEast Ohio Regional HospitalPotassium [Moles/volume] in Serum or PlasmaOrdered By: Barby Chen on 19-90-0759Rngglhrmn [Moles/Vol]4.4 mmol/L3.5-5.1FMercy HealthProtein [Mass/volume] in Serum or PlasmaOrdered By: Barby Chen on 43-99-6720Jlwxdmm [Mass/Vol]7.3 g/dL6.4-8.9[facility] [place] [facility] HospitalRBC Auto (Bld) [#/Vol]Ordered By: Barby Chen on 24-26-2763PKA (Bld) [#/Vol]4.97 10*6/uL3.60-5.00[facility] Hospitalerum or plasma albumin/globulin mass ratioOrdered By: Barby Chen on 12-02-2023 Albumin/Globulin [Mass ratio]1.4 {ratio}[facility] Hospitalerum or plasma anion gap determinationOrdered By: Barby Chen on 45-56-0412Fcaru gap [Moles/Vol]9.6 mmol/L6.0-15.0[facility] Hospitalodium [Moles/volume] in Serum or PlasmaOrdered By: Barby Chen on 62-83-1857Gslbzs [Moles/Vol]131 mmol/PXas008-310NoyxptnxvEast Ohio Regional HospitalUrea nitrogen [Mass/volume] in Serum or PlasmaOrdered By: Barby Chen on 29-83-8115Xhju nitrogen [Mass/Vol]9 mg/dL7-25[facility] [place] [facility] HospitalWBC Auto (Bld) [#/Vol]Ordered By: Barby Chen on 84-69-8943HJT (Bld) [#/Vol]7.9 10*3/uL 3.8-11.6FMercy HealthAlanine aminotransferase [Enzymatic activity/volume] in Serum or PlasmaOrdered By: Anibal Chaudhary on 18-42-1587QHR [Catalytic activity/Vol]12 U/L7-52[facility] [place] [facility] HospitalAlbumin [Mass/volume] in Serum or Plasma by Bromocresol green (BCG) dye binding metho Ordered By: Anibal Chaudhary on 80-68-8968Yswjkag BCG dye [Mass/Vol]4.2 g/dL3.5-5.7 [facility] [place] [facility] HospitalAlkaline phosphatase [Enzymatic activity/volume] in Serum or PlasmaOrdered By: Anibal Chaudhary on 62-58-2394YEX [Catalytic activity/Vol]79 U/F47-195MvzjexalrEast Ohio Regional HospitalAspartate aminotransferase [Enzymatic activity/volume] in Serum or PlasmaOrdered By: Anibal Chaudhary on 06-89-7712RQI [Catalytic activity/Vol]16 U/U14-38KhgmkpffoEast Ohio Regional HospitalBilirubin.total [Mass/volume] in Serum or PlasmaOrdered By: Anibal Chaudhary on 76-68-5643Apppdoqnt [Mass/Vol]0.5 mg/dL0.3-1.0[facility] [place] [facility] HospitalCalcium [Mass/volume] in Serum or PlasmaOrdered By: Anibal Chaudhary on 28-49-6999Xnwwsxy [Mass/Vol]9.1 mg/dL8.6-10.3FMercy HealthCarbon dioxide, total [Moles/volume] in Serum or PlasmaOrdered By: Anibal Chaudhary on 57-61-5158IT3 [Moles/Vol]26.2 mmol/L21.0-31.0[facility] [place] [facility] HospitalChloride [Moles/volume] in Serum or PlasmaOrdered By: Anibal Chaudhary on 79-14-7378Jwswjziu [Moles/Vol]101 mmol/H36-159SnkrohskuEast Ohio Regional HospitalCholesterol [Mass/volume] in Serum or PlasmaOrdered By: Anibal Chaudhary on 45-39-3741Gdvfjdhuswb [Mass/Vol]162 mg/tG184-719ZtkivvqrmEast Ohio Regional HospitalComment on above:Chol less than 200 mg/dl low riskChol 201-239 mg/dl borderline riskChol 240 mg/dl and greater high riskCholesterol in LDL Calc [Mass/Vol]Ordered By: Anibal Chaudhary on 27-32-7175Uoxgituixej in LDL [Mass/Vol]86 mg/dL0-100[facility] [place] [facility] HospitalComment on above:LDL ATP III CLASSIFICATIONLDL less than 100 mg/dL OptimalLDL 100-129 mg/dL Near or above thuguwgOKM042-022 mg/dL Borderline highLDL 160-189 mg/dL HighLDL greater than 189 mg/dL Very highCholesterol in VLDL Calc [Mass/Vol]Ordered By: Anibal Chaudhary on 22-00-9179Qmbhljhszqq in VLDL [Mass/Vol]20 mg/dLEast Ohio Regional HospitalCreatinine [Mass/volume] in Serum or PlasmaOrdered By: Anibal Chaudhary on 41-39-0571Wsdjcdwkvy [Mass/Vol]0.94 mg/dL0.60-1.20[facility] [place] [facility] HospitalGlobulin Calc (S) [Mass/Vol]Ordered By: Anibal Chaudhary on 57-78-4315Roocuaxt (S) [Mass/Vol]2.6 g/dLEast Ohio Regional HospitalGlucose [Mass/volume] in Serum or PlasmaOrdered By: Anibal Chaudhary on 13-45-4185Cczrkxd [Mass/Vol]130 mg/zBQypf60-807UrktguthfEast Ohio Regional HospitalComment on above:ADA recommended reference rangeRandom Glucose Reference Range is dependent on time and content of last meal. Glucose of more than 200 mg/dL in a nonstressed, ambulatory subject supports the diagnosisof Diabetes Mellitus.Glucose mean value [Mass/volume] in Blood Estimated from glycated hemoglobinOrdered By: Anibal Chaudhary on 39-56-0302Gpatadk glucose Estimated from glycated hemoglobin (Bld) [Mass/Vol]123 mg/dLEast Ohio Regional HospitalHemoglobin A1c percentage Ordered By: Anibal Chaudhary on 80-36-6976EhM4x (Bld) [Mass fraction]5.9 %High 4.3-5.6FMercy HealthComment on above:Increased risk for diabetes: 5.7 - 6.4diabetes: >6.4glycemic control for adults with diabetes: &l t;7.0No Panel InformationOrdered By: Anibal Chaudhary on 74-19-9444Esrafxjpv GFR (CKD-EPI)> 60.0 mL/MinEast Ohio Regional HospitalPharmacy Creatinine Clearance (ChemN/AFMercy HealthPotassium [Moles/volume] in Serum or PlasmaOrdered By: Anibal Chaudhary on 44-30-7982Tgktaasyp [Moles/Vol]4.5 mmol/L3.5-5.1FMercy HealthProtein [Mass/volume] in Serum or PlasmaOrdered By: Anibal Chaudhary on 72-60-1146Itbvsya [Mass/Vol]6.8 g/dL6.4-8.9 [facility] Hospitalerum or plasma albumin/globulin mass ratio Ordered By: Anibal Chaudhary on 29-62-4527Gmpcpye/Globulin [Mass ratio]1.6 {ratio} [facility] Hospitalerum or plasma anion gap determinationOrdered By: Anibal Chaudhary on 27-55-2676Ktkia gap [Moles/Vol]10.3 mmol/L6.0-15.0[facility] Hospitalerum or plasma high density lipoprotein (HDL) cholesterol measurementOrdered By: Anibal Chaudhary on 39-38-8190Bfzgmvuqkey in HDL [Mass/Vol]56 mg/fX16-89BnqwaoctbEast Ohio Regional HospitalComment on above:HDL CHOL ATP-III CLASSIFICATION Cardiovascular RiskHDL > or equal to 60 mg/dL LOWHDL < 40 mg/dL HIGHSerum or plasma total cholesterol/high density lipoprotein (HDL) cholesterol mass ratOrdered By: Anibal Chaudhary on 11-03-2023 Cholesterol.total/Cholesterol in HDL [Mass ratio]2.9 {ratio}<5.0[facility] Hospitalodium [Moles/volume] in Serum or PlasmaOrdered By: Anibal Chaudhary on 87-10-4089Fozrtl [Moles/Vol]133 mmol/RStw625-342QqzvfoywyEast [place] Regional HospitalThyrotropin [Units/volume] in Serum or PlasmaOrdered By: Anibal Chaudhary on 47-45-2194TTS Qn1.79 m[IU]/L0.45-5.33[facility] [place] [facility] HospitalThyroxine (T4) free [Mass/volume] in Serum or PlasmaOrdered By: Anibal Chaudhary on 67-85-1504Aljz T4 [Mass/Vol]0.92 ng/dL0.61-1.12[facility] [place] [facility] HospitalTriglyceride [Mass/volume] in Serum or PlasmaOrdered By: Anibal Chaudhary on 87-87-9848Ukarlsikjczq [Mass/Vol]101 mg/dL0-149[facility] [place] [facility] HospitalComment on above:TRIG ATP III CLASSIFICATIONTRIG less than 150 mg/dL NormalTRIG 150-199 mg/dL Borderline highTRIG 200-500 mg/dL High TRIG greater than 500 mg/dL Very highStandard traceable to the Center for Disease Co nrtrol and Prevention (CDC) test method.Urea nitrogen [Mass/volume] in Serum or PlasmaOrdered By: Anibal Chaudhary on 37-29-4882Pqiw nitrogen [Mass/Vol]20 mg/dL7-25 [facility] [place] [facility] HospitalBasophils Auto (Bld) [#/Vol]on 09-07-2023 Basophils (Bld) [#/Vol]0.1 10 3/uL0.0-0.1FMercy Health Basophils/100 WBC Auto (Bld)on 58-60-7059Fvdmlvdun/100 WBC (Bld)1.0 %0.2-2.0 [facility] [place] [facility] HospitalEosinophils/100 WBC Auto (Bld)on 09-07-2023 Eosinophils/100 WBC (Bld)0.0 %Low0.9-7.0[facility] Erythrocyte distribution width Auto (RBC) [Ratio]on 25-85-9865Byriswsuvnt distribution width (RBC) [Ratio]12.2 %11.0-15.0[facility] Estimated glomerular filtration rate (GFR) non- Americanon 09-07-2023 GFR/1.73 sq M.predicted among non-blacks MDRD (S/P/Bld) [Vol rate/Area] mL/min/{1.73_m2}>=60[facility] [place] [facility] HospitalGlobulin Calc (S) [Mass/Vol]on 10-75-9703Msnalwap (S) [Mass/Vol]3.6 g/dLEast Ohio Regional HospitalHematocrit Auto (Bld) [Volume fraction]on 75-04-2149Fvmzaonopg (Bld) [Volume fraction]38.5 %36.0-48.0[facility] [place] [facility] HospitalHemoglobin [Mass/volume] in Bloodon 14-65-2578Mxptogfpfv (Bld) [Mass/Vol]13.3 g/dL12.0-16.0 [facility] [place] [facility] HospitalLaboratory - Chemistry and Chemistry - challengeon 29-43-5562Gbhnjlt [Mass/Vol]3.6 g/dL3.4-5.0[facility] [place] [facility] HospitalALP [Catalytic activity/Vol]84 U/N96-083CrumdsdfiEast [place] Regional HospitalALT [Catalytic activity/Vol]19 U/R79-97RdztplkxqEast [facility] Hospital AST [Catalytic activity/Vol]16 U/X53-84HukvuyhzbEast [facility] Hospital Bilirubin [Mass/Vol]0.4 mg/dL0.2-1.0[facility] [place] [facility] HospitalCalcium [Mass/Vol]8.9 mg/dL8.5-10.1FMercy HealthChloride [Moles/Vol] 96 mmol/WFxh71-998SdvxnwhsfEast [place] Regional HospitalCO2 [Moles/Vol]31.7 mmol/L 21.0-32.0[facility] [place] [facility] HospitalCreatinine [Mass/Vol]0.91 mg/dL 0.55-1.02[facility] [place] [facility] HospitalGFR/1.73 sq M.predicted MDRD (S/P/Bld) [Vol rate/Area]mL/min/{1.73_m2}>=60[facility] [place] [facility] HospitalGlucose [Mass/Vol]108 mg/dGDeld86-691UgvwpbctiEast [place] Regional HospitalPotassium [Moles/Vol]4.2 mmol/L3.5-5.1FMercy HealthProtein [Mass/Vol] 7.2 g/dL6.4-8.2FMercy Memorial Hospitalodium [Moles/Vol]130 mmol/LLow 136-145[facility] [place] [facility] HospitalUrea nitrogen [Mass/Vol]15.0 mg/dL 7.0-18.0[facility] [place] [facility] HospitalUrea nitrogen/Creatinine [Mass ratio] 16.5 mg/mgEast [facility] Regional HospitalLaboratory - Hematology and Cell countson 33-08-3638Xkivoyja granulocytes/100 WBC (Bld)0.3 %0.0-0.5FMercy HealthLeukocytes [#/volume] corrected for nucleated erythrocytes in Blood by Automated counon 48-08-5349YFJ corrected for nucl RBC Auto (Bld) [#/Vol]6.3 10 3/uL4.0-11.0[facility] Lymphocytes Auto (Bld) [#/Vol]on 87-93-2684Xeiwtybzzip (Bld) [#/Vol]1.4 10 3/uL 1.2-3.8[facility] [place] [facility] HospitalLymphocytes/100 WBC Auto (Bld)on 95-89-7086Ebuwahainnt/100 WBC (Bld)22.4 %20.5-60.0[facility] HospitalH Auto (RBC) [Entitic mass]on 61-83-9469MFB (RBC) [Entitic mass]30.9 pg 26.7-34.0[facility] [place] [facility] HospitalMCHC Auto (RBC) [Mass/Vol]on 67-19-9812PPWZ (RBC) [Mass/Vol]34.5 g/dL29.9-35.2FMercy HealthMCV Auto (RBC) [Entitic vol]on 17-69-6769FUY (RBC) [Entitic vol]89.5 fL 81.0-99.0[facility] [place] [facility] HospitalMonocytes Auto (Bld) [#/Vol]on 43-63-2818Mwfsezjjs (Bld) [#/Vol]0.4 10 3/uL0.3-0.8[facility] [place] [facility] HospitalMonocytes/100 WBC Auto (Bld)on 14-81-6021Gnusjfuge/100 WBC (Bld)6.6 % 1.7-12.0[facility] [place] [facility] HospitalNeutrophils Auto (Bld) [#/Vol]on 44-08-3078Gklfcdfevlt (Bld) [#/Vol]4.4 10 3/uL1.4-6.5FMercy HealthNeutrophils/100 WBC Auto (Bld)on 43-92-7597Bicuagivolk/100 WBC (Bld)69.7 % 43.0-75.0[facility] HospitalNo Panel Informationon 09-07-2023 Eosinophils # (Auto)0.0 10 3/uL0.0-0.7FMercy HealthImmature Granulocyte # (Auto)0.02 10 3/uL0.00-0.03[facility] Platelet mean volume Auto (Bld) [Entitic vol]on 11-21-5717Lujcavup mean volume (Bld) [Entitic vol]8.6 fLLow9.5-13.5FMercy HealthPlatelets Auto (Bld) [#/Vol]on 97-96-1715Hitakkowz (Bld) [#/Vol]233 10 3/zZ840-879 [facility] [place] [facility] HospitalRBC Auto (Bld) [#/Vol]on 13-75-1036GKX (Bld) [#/Vol]4.30 10 6/uL4.20-5.40[facility] Hospitalerum or plasma albumin/globulin mass ratioon 13-60-5252Ctcyxnl/Globulin [Mass ratio]1.0 {ratio} [facility] Hospitalerum or plasma anion gap determinationon 22-17-7202Tzmnt gap [Moles/Vol]6.5 mmol/LFMercy Health Basophils Auto (Bld) [#/Vol]on 41-00-5379Mxalrcitl (Bld) [#/Vol]0.1 10 3/uL 0.0-0.1FMercy HealthBasophils/100 WBC Auto (Bld)on 36-14-0589Zcqvjnmbs/100 WBC (Bld)1.3 %0.2-2.0[facility] Eosinophils/100 WBC Auto (Bld)on 43-02-4677Qicxcjbkfzm/100 WBC (Bld)0.0 %Low 0.9-7.0[facility] [place] [facility] HospitalErythrocyte distribution width Auto (RBC) [Ratio]on 31-79-4087Cnwwjukczuw distribution width (RBC) [Ratio]12.1 % 11.0-15.0[facility] HospitalEstimated glomerular filtration rate (GFR) non- Americanon 47-36-7268YZT/1.73 sq M.predicted among non-blacks MDRD (S/P/Bld) [Vol rate/Area]mL/min/{1.73_m2}>=60[facility] HospitalHematocrit Auto (Bld) [Volume fraction]on 27-45-3500Whwrqrrkxg (Bld) [Volume fraction]40.6 %36.0-48.0[facility] HospitalHemoglobin [Mass/volume] in Bloodon 02-92-2779Mhwqxymhbx (Bld) [Mass/Vol]13.8 g/dL12.0-16.0 [facility] HospitalLaboratory - Chemistry and Chemistry - challengeon 96-87-2366Nqhnfbo [Mass/Vol]8.8 mg/dL8.5-10.1FMercy HealthChloride [Moles/Vol]96 mmol/FEui21-473GjjfmgaxuEast [facility] Regional HospitalCO2 [Moles/Vol]30.6 mmol/L21.0-32.0[facility] Creatinine [Mass/Vol]0.89 mg/dL0.55-1.02[facility] HospitalFree T4 [Mass/Vol]0.87 ng/dL0.76-1.46[facility] HospitalGFR/1.73 sq M.predicted MDRD (S/P/Bld) [Vol rate/Area]mL/min/{1.73_m2}>=60[facility] HospitalGlucose [Mass/Vol]116 mg/kGYbld92-857IdvjktazwEast [facility] Regional HospitalNatriuretic peptide B (Bld) [Mass/Vol]490.0 pg/mL<=900.0[facility] HospitalPotassium [Moles/Vol]4.4 mmol/L3.5-5.1FMercy Memorial Hospitalodium [Moles/Vol]133 mmol/IOhy378-986JtypohbglEast [facility] Regional HospitalTSH Qn4.910 m[IU]/LHigh0.358-3.740[facility] HospitalUrea nitrogen [Mass/Vol]20.0 mg/dLHigh7.0-18.0[facility] HospitalUrea nitrogen/Creatinine [Mass ratio]22.5 mg/mgEast [facility] Bilirubin Ql (U)NegativeNEGATIVEEast [facility] Regional HospitalGlucose (U) [Mass/Vol]NegativeNEGATIVEEast [facility] Regional HospitalKetones Ql (U) NegativeNEGMercy HospitalpH (U)7.0 [pH]5.0-9.0[facility] Hospitalpecific gravity (U) [Rel density]1.0101.005-1.025 [facility] HospitalUrobilinogen Qn (U)0.2 {Lenny'U}/dL0.2-1.0 [facility] HospitalLaboratory - Hematology and Cell countson 48-13-7887Mcxoboza granulocytes/100 WBC (Bld)0.5 %0.0-0.5FMercy HealthLaboratory - Specimen informationon 66-30-7885Znwxruaznk (U)CLEAR CLEAREast [facility] Regional HospitalColor (U)LT. YELLOWYELLOWEast [facility] Regional HospitalLaboratory - Urinalysison 14-16-3080Xatowisxm esterase Test strip Ql (U)NegativeNEGATIVEEast [facility] Regional HospitalNitrite Ql (U) NegativeNEGATIVEEast [facility] HospitalProtein Ql (U)NegativeNEG/TRACE [facility] HospitalLeukocytes [#/volume] corrected for nucleated erythrocytes in Blood by Automated counon 60-78-0936OII corrected for nucl RBC Auto (Bld) [#/Vol]7.5 10 3/uL4.0-11.0[facility] Lymphocytes Auto (Bld) [#/Vol]on 81-74-8034Wzsdtmdjnru (Bld) [#/Vol]1.6 10 3/uL 1.2-3.8[facility] HospitalLymphocytes/100 WBC Auto (Bld)on 29-95-6972Kucflyvskor/100 WBC (Bld)21.2 %20.5-60.0[facility] HospitalH Auto (RBC) [Entitic mass]on 56-39-0840YQM (RBC) [Entitic mass]31.0 pg 26.7-34.0[facility] HospitalHC Auto (RBC) [Mass/Vol]on 54-56-9356XQDG (RBC) [Mass/Vol]34.0 g/dL29.9-35.2FMercy HealthMCV Auto (RBC) [Entitic vol]on 77-93-9437XNY (RBC) [Entitic vol]91.2 fL 81.0-99.0[facility] HospitalMonocytes Auto (Bld) [#/Vol]on 01-25-8745Lmczzvqqc (Bld) [#/Vol]0.5 10 3/uL0.3-0.8[facility] HospitalMonocytes/100 WBC Auto (Bld)on 90-08-1732Nwycthriu/100 WBC (Bld)6.4 % 1.7-12.0[facility] [place] [facility] HospitalNeutrophils Auto (Bld) [#/Vol]on 13-91-4020Tsoeqvekvrw (Bld) [#/Vol]5.3 10 3/uL1.4-6.5FMercy HealthNeutrophils/100 WBC Auto (Bld)on 25-43-8716Ertxmbfxjct/100 WBC (Bld)70.6 % 43.0-75.0[facility] HospitalNo Panel Informationon 08-19-2023 Eosinophils # (Auto)0.0 10 3/uL0.0-0.7FMercy HealthImmature Granulocyte # (Auto)0.04 10 3/uLHigh0.00-0.03[facility] Urine Occult BloodTRACE-LNEGATIVEEast Ohio Regional HospitalPlatelet mean volume Auto (Bld) [Entitic vol]on 74-00-4008Mkcdlyif mean volume (Bld) [Entitic vol]9.0 fLLow9.5-13.5FMercy HealthPlatelets Auto (Bld) [#/Vol]on 89-55-4423Cexsuofrq (Bld) [#/Vol]259 10 3/rG017-702DnjjxgmywEast [place] Regional HospitalRBC Auto (Bld) [#/Vol]on 10-64-8253FKX (Bld) [#/Vol]4.45 10 6/uL 4.20-5.40[facility] Hospitalerum or plasma anion gap determinationon 38-26-0788Vvmmc gap [Moles/Vol]10.8 mmol/LFMercy HealthAlanine aminotransferase [Enzymatic activity/volume] in Serum or PlasmaOrdered By: Pam Wagoner on 02-31-4209FIB [Catalytic activity/Vol]13 U/L 7-52[facility] HospitalAlbumin [Mass/volume] in Serum or Plasma by Bromocresol green (BCG) dye binding methoOrdered By: Pam Wagoner on 07-08-2023 Albumin BCG dye [Mass/Vol]4.7 g/dL3.5-5.7FMercy Health Alkaline phosphatase [Enzymatic activity/volume] in Serum or PlasmaOrdered By: Pam Wagoner on 22-17-3995TMH [Catalytic activity/Vol]72 U/Z09-004UrvunvtxwEast [facility] Regional HospitalAspartate aminotransferase [Enzymatic activity/volume] in Serum or PlasmaOrdered By: Pam Wagoner on 59-06-2035JIF [Catalytic activity/Vol] 18 U/V27-00SfvfozsdjEast [place] Regional HospitalBasophils Auto (Bld) [#/Vol]Ordered By: Pam Wagoner on 22-78-6745Lqdbqwwme (Bld) [#/Vol]0.1 10*3/uL0.0-0.2FMercy HealthBasophils/100 WBC Auto (Bld)Ordered By: Pam Wagoner on 66-97-9325Isndfumot/100 WBC (Bld)1.2 %.[facility] Bilirubin.total [Mass/volume] in Serum or PlasmaOrdered By: Pam Wagoner on 41-46-8671Thfaspxiv [Mass/Vol]0.3 mg/dL0.3-1.0[facility] Calcium [Mass/volume] in Serum or PlasmaOrdered By: Pam Wagoner on 07-08-2023 Calcium [Mass/Vol]9.9 mg/dL8.6-10.3FMercy HealthCarbon dioxide, total [Moles/volume] in Serum or PlasmaOrdered By: Pam Wagoner on 11-75-6983FX1 [Moles/Vol]31.5 mmol/L21.0-31.0[facility] Chloride [Moles/volume] in Serum or PlasmaOrdered By: Pam Wagoner on 07-08-2023 Chloride [Moles/Vol]100 mmol/C91-845LfbkanklcEast [place] Regional HospitalCreatinine [Mass/volume] in Serum or PlasmaOrdered By: Pam Wagoner on 87-76-4618Djxtrvanbo [Mass/Vol]0.96 mg/dL0.60-1.20[facility] HospitalEosinophils Auto (Bld) [#/Vol]Ordered By: Pam Wagoner on 39-32-9439Irmglvagunr (Bld) [#/Vol]0.0 10*3/uL0.0-0.45[facility] HospitalEosinophils/100 WBC Auto (Bld) Ordered By: Pam Wagoner on 39-40-7240Mgqpalhxinf/100 WBC (Bld)0.0 %.[facility] HospitalErythrocyte distribution width Auto (RBC) [Ratio]Ordered By: Pam Wagoner on 78-20-0020Jciuusljegl distribution width (RBC) [Ratio]12.9 % 11.9-15.3FMercy HealthFree thyroxine indexOrdered By: Pam Wagoner on 93-58-6716Iefw T4 index Calc [Mass/Vol]1.81.2-4.9[facility] HospitalGlobulin Calc (S) [Mass/Vol]Ordered By: Pam Wagoner on 84-78-3435Ygacqubr (S) [Mass/Vol]2.8 g/dLEast [facility] Regional Hospital Glucose [Mass/volume] in Serum or PlasmaOrdered By: Pam Wagoner on 07-08-2023 Glucose [Mass/Vol]109 mg/mL78-725CysyhokioEast Ohio Regional HospitalComment on above:ADA recommended reference rangeRandom Glucose Reference Range is dependent on time and content of last meal. Glucose of more than 200 mg/dL in a nonstressed, ambulatory subject supports the diagnosisof Diabetes Mellitus. Hematocrit Auto (Bld) [Volume fraction]Ordered By: Pam Wagoner on 07-08-2023 Hematocrit (Bld) [Volume fraction]43.4 %34.0-46.4FMercy HealthHemoglobin [Mass/volume] in BloodOrdered By: Pam Wagoner on 07-08-2023 Hemoglobin (Bld) [Mass/Vol]14.7 g/dL11.8-15.4FMercy Health Leukocytes [#/volume] corrected for nucleated erythrocytes in Blood by Automated counOrdered By: Pam Wagoner on 17-10-2753CZO corrected for nucl RBC Auto (Bld) [#/Vol]6.7 10*3/uL3.8-11.6FMercy HealthLymphocytes Auto (Bld) [#/Vol]Ordered By: Pam Wagoner on 22-47-4160Ctnrxwaximi (Bld) [#/Vol]1.7 10*3/uL1.00-4.8[facility] HospitalLymphocytes/100 WBC Auto (Bld) Ordered By: Pam Wagoner on 57-40-7045Sxkrdaqpkvw/100 WBC (Bld)25.8 %.[facility] Auto (RBC) [Entitic mass]Ordered By: Pam Wagoner on 12-79-3106WTJ (RBC) [Entitic mass]31.2 pg24.7-34.3FMercy HealthMCHC Auto (RBC) [Mass/Vol]Ordered By: Pam Wagoner on 80-72-7398GAQH (RBC) [Mass/Vol]34.0 g/dL32.0-35.0[facility] HospitalMCV Auto (RBC) [Entitic vol]Ordered By: Pam Wagoner on 50-89-1965GJC (RBC) [Entitic vol]92.0 fL 80-100[facility] HospitalMonocytes Auto (Bld) [#/Vol]Ordered By: Pam Wagoner on 62-88-8175Uvigmxfrg (Bld) [#/Vol]0.5 10*3/uL0.0-0.8[facility] HospitalMonocytes/100 WBC Auto (Bld)Ordered By: Pam Wagoner on 05-26-1729Rdbmvmbfa/100 WBC (Bld)7.8 %.[facility] Neutrophils Auto (Bld) [#/Vol]Ordered By: Pam Wagoner on 50-59-1991Auxdkygtkyr (Bld) [#/Vol]4.3 10*3/uL1.8-7.7FMercy HealthNeutrophils/100 WBC Auto (Bld)Ordered By: Pam Wagoner on 42-21-7967Iqobkzxrvfl/100 WBC (Bld)65.2 %.[facility] HospitalNo Panel InformationOrdered By: Pam Wagoner on 54-89-2818Sgnaeitmg GFR (CKD-EPI)> 60.0 mL/MinEast [facility] Regional HospitalFree Thyroxine (T4) Direct7.5 ug/dL4.5-12.0[facility] HospitalPharmacy Creatinine Clearance (ChemN/AFMercy Health Nucleated erythrocytes [Presence] in Blood by Automated countOrdered By: Pam Wagoner on 66-52-4438Fbgivvlst RBC Auto Ql (Bld)0.1 /100{WBC}0-0.5FMercy HealthPlatelet mean volume Auto (Bld) [Entitic vol]Ordered By: Pam Wagoner on 06-78-3054Irfvrcle mean volume (Bld) [Entitic vol]7.8 fL6.3-10.7 [facility] HospitalPlatelets Auto (Bld) [#/Vol]Ordered By: Pam Wagoner on 14-50-2677Sfxtpevhh (Bld) [#/Vol]278 10*3/lE112-224OycezxfiyEast Ohio Regional HospitalPotassium [Moles/volume] in Serum or PlasmaOrdered By: Pam Wagoner on 48-17-7758Zmofzkasn [Moles/Vol]4.7 mmol/L3.5-5.1FMercy HealthProtein [Mass/volume] in Serum or PlasmaOrdered By: Pam Wagoner on 40-18-0133Gyobrky [Mass/Vol]7.5 g/dL6.4-8.9[facility] HospitalRBC Auto (Bld) [#/Vol]Ordered By: Pam Wagoner on 42-62-7205BEH (Bld) [#/Vol]4.72 10*6/uL3.60-5.00[facility] County Hospitalerum or plasma 25- hydroxycalciferol measurement (mass/volume)Ordered By: Pam Wagoner on 07-08-2023 25-hydroxyvitamin D2 [Mass/Vol]<1.0 ng/mL.[facility] Comment on above:This test was developed and its performance characteristicsdetermined by [facility]. It has not been cleared or approvedby the Food and Drug Administration.Serum or plasma 25-hydroxyvitamin D measurement (mass/volume)Ordered By: Pam Wagoner on 70-88-087784841752-wkenftsoofhhmm D [Mass/Vol] 6.8 ng/mL.[facility] HospitalComment on above:Reference Range:All Ages: Target levels 30 - 100Serum or plasma albumin/globulin mass ratioOrdered By: Pam Wagoner on 45-75-8983Wtjhuhd/Globulin [Mass ratio]1.7 {ratio}[facility] Hospitalerum or plasma anion gap determinationOrdered By: aPm Wagoner on 95-82-6637Wxcnz gap [Moles/Vol]9.2 mmol/L6.0-15.0[facility] Hospitalerum or plasma calcidiol measurement (mass/volume) Ordered By: Pam Wagoner on 115775-qwtmhcklrqcybo D3 [Mass/Vol]6.8 ng/mL. [facility] HospitalComment on above:This test was developed and its performance characteristicsdetermined by [facility]. It has not been cleared or approvedby the Food and Drug Administration.Performed at: [facility] [address] [place], [place] [id number] Director: Santos Chahal MD, Phone: [phone] [Moles/volume] in Serum or PlasmaOrdered By: Pam Wagoner on 46-94-7512Ulihxu [Moles/Vol]136 mmol/Z818-163GhdztklcuEast Ohio Regional HospitalT3 uptakeOrdered By: Pam Wagoner on 08-15-0620I9GV96 %24-39[facility] [place] [facility] HospitalTSH DL <= 0.005 mIU/L QnOrdered By: Pam Wagoner on 51-02-6838IBI Qn5.980 m[IU]/L0.450-4.500[facility] Triiodothyronine (T3) [Mass/volume] in Serum or PlasmaOrdered By: Pam Wagoner on 65-79-3127R8 [Mass/Vol]124 ng/hG11-777WdbipxvxlEast [place] Regional HospitalComment on above:Performed at: - [facility] [id number] Director: Spencer Martinez PhD, Phone: [phone] nitrogen [Mass/volume] in Serum or PlasmaOrdered By: Pam Wagoner on 46-75-1288Qpqx nitrogen [Mass/Vol]26 mg/dL7-25[facility] [place] [facility] HospitalWBC Auto (Bld) [#/Vol]Ordered By: Pam Wagoner on 92-90-1360QFL (Bld) [#/Vol]6.7 10*3/uL3.8-11.6 [facility] HospitalProgress Note - Nutritionon 48-78-7505Xesvledg Note - NutritionPt is here today for an initial DM MNT appt. Pt has had diabetes for two years. 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 Referral of Care: [...] or pending f/u fo (more content not included)...[facility] HospitalBD BONE DENSITY DEXAon 05-30-2023 Exam Date/Time: [...] MD, V. Transcribed by: EUSEBIA Technologist: [facility]ITALRadiology, Radiologist, - 05/30/2023 Exam Date/Time: 05/29/2023 [...] MD, V. Transcribed by: EUSEBIA Technologist: [facility] HOSPITALGwen [facility] BONE DENSITY DEXAOrdered By: Radiologist Radiology on 91-29-8096W[facility] [employer] Work Phone: bd Bone Density DEXAon 04-29-0019OJ Bone Density DEXA Exam Date/Time: 05/29/2023 13:47 [...] Ruff MD, V. Transcribed by: EUSEBIA Technologist: [facility] HospitalBD BONE DENSITY DEXAon 61-41-1826Rtnyifqum Study observation (narrative)[facility] Consent for Treatmenton 04-04-5940Cichmvq for Treatment [id number]#1.00TIFKettering Health Washington TownshipConsent for [id number]#1.00TIFF [facility] HospitalPhysician Orderon 48-75-7139Ibplqgvem Order [id number]#1.00TIFKettering Health Washington TownshipPhysician Referralon 45-22-3584Xfyspacrd Referral [id number]#1.00TIFKettering Health Washington TownshipCalcium [Mass/volume] in Serum or PlasmaOrdered By: Froilan Brown on 50-95-9671Rakmxhw [Mass/Vol]8.8 mg/dL8.6-10.3FMercy Health Carbon dioxide, total [Moles/volume] in Serum or PlasmaOrdered By: Froilan Brown on 10-77-3858NN1 [Moles/Vol]25.8 mmol/L21.0-31.0[facility] HospitalChloride [Moles/volume] in Serum or PlasmaOrdered By: Froilan Brown on 41-43-3300Nheqmaex [Moles/Vol]104 mmol/P59-629PvwravsvpEast [place] Regional HospitalCreatinine [Mass/volume] in Serum or PlasmaOrdered By: Froilan Brown on 58-55-2636Tqtxasxbyx [Mass/Vol]0.61 mg/dL0.60-1.20[facility] HospitalGlucose [Mass/volume] in Serum or PlasmaOrdered By: Froilan Brown on 06-04-9980Pcakctc [Mass/Vol]113 mg/vU85-794MtdjvdvnwEast Ohio Regional HospitalComment on above:ADA recommended reference rangeRandom Glucose Reference Range is dependent on time and content of last meal. Glucose of more than 200 mg/dL in a nonstressed, ambulatory subject supports the diagnosisof Diabetes Mellitus.No Panel InformationOrdered By: Froilan Brown on 04-98-9120Knemydkba GFR (CKD-EPI)> 60.0 mL/MinEast Ohio Regional HospitalPharmacy Creatinine Clearance (Bjnl250.69[facility] Potassium [Moles/volume] in Serum or PlasmaOrdered By: Froilan Brown on 38-14-9952Agdtirdcj [Moles/Vol]4.3 mmol/L3.5-5.1FMercy Memorial Hospitalerum or plasma anion gap determinationOrdered By: Froilan Brown on 39-86-0497Emmnc gap [Moles/Vol]9.5 mmol/L6.0-15.0[facility] Hospitalodium [Moles/volume] in Serum or PlasmaOrdered By: Froilan Brown on 76-35-9972[place] [Moles/Vol]135 mmol/J618-759CvvhkvxwwEast [facility] Hospital Troponin I.cardiac [Mass/volume] in Serum or Plasma by Detection limit <= 0.01 ng/Ordered By: Froilan Brown on 45-79-5194Cimkdwrz I.cardiac DL <= 0.01 ng/mL [Mass/Vol]7.7 pg/mL0.0-15.0[facility] HospitalUrea nitrogen [Mass/volume] in Serum or PlasmaOrdered By: Froilan Brown on 94-59-1964Nulp nitrogen [Mass/Vol]8 mg/dL7-25[facility] [place] [facility] HospitalCBC AUTO DIFFon 98-35-2709UXBX #0.1 103/ulNormal0.0-0.1The [facility] HospitalComment on above: Performed By: #### CBC #### [facility] [address] [address] [address] Domi SaleemBasophils/100 WBC (Bld)1.2 %Normal0.2-2.0[facility] Comment on above:Performed By: #### CBC #### [facility] [address] [address] [address] Domi Romero #0.3 103/ulNormal0.0-0.7The [facility] HospitalComment on above: Performed By: #### CBC #### [facility] [address] [address] [address] Domi Leeosinophils/100 WBC (Bld)3.8 %Normal0.9-7.0[facility] Comment on above:Performed By: #### CBC #### [facility] [address] [address] [address] Domi Leerythrocyte distribution width (RBC) [Ratio]12.5 %Axoeqv44.0-15.0 The [facility] HospitalComment on above:Performed By: #### CBC #### [facility] [address] [address] [address] Domi SaleemHematocrit (Bld) [Volume fraction]42.5 %Xfbgmy14.0-48.0The [facility] HospitalComment on above:Performed By: #### CBC #### [facility] [address] [address] [address] Domi SaleemHemoglobin (Bld) [Mass/Vol]14.6 g/eNIsqdhv67.0-16.0The [facility] HospitalComment on above:Performed By: #### CBC #### [facility] [address] [address] [address] Domi Olivera #0.04 10e3/ulCritically high0.00-0.03[facility] Comment on above:Performed By: #### CBC #### [facility] [address] [place] [address] Dr. Domi Olivera %0.6 %Critically high0.0-0.5The [facility] HospitalComment on above:Performed By: #### CBC #### [facility] [address] [place] [address] Dr. Domi De La O #1.3 103/ulNormal1.2-3.8The [facility] HospitalComment on above:Performed By: #### CBC #### [facility] [address] [place] [address] Dr. Domi Olivareshocytes/100 WBC (Bld)18.5 %Critically low20.5-60.0The [facility] Memorial HospitalComment on above:Performed By: #### CBC #### [facility] [address] [place] [address] Dr. Domi Montes DIFF REQNONormalThe Community Memorial HospitalComment on above: Performed By: #### CBC #### [facility] [address] [place] [address] Dr. Domi Felipe (RBC) [Entitic mass]31.1 xwNctpbt48.7-34.0The [facility] HospitalComment on above:Performed By: #### CBC #### [facility] [address] [place] [address] Dr. Domi Curiel (RBC) [Mass/Vol]34.4 g/zGVbxsyq54.9-35.2The [facility] HospitalComment on above:Performed By: #### CBC #### [facility] [address] [place] [address] Dr. Domi Curiel (RBC) [Entitic vol]90.4 hTZpxmrs10.0-99.0The [facility] HospitalComment on above:Performed By: #### CBC #### [facility] [address] [place] [address] Dr. Domi Chavez #0.3 103/ulNormal0.3-0.8The [facility] HospitalComment on above:Performed By: #### CBC #### [facility] [address] [place] [address] Dr. Domi Kramerocytes/100 WBC (Bld)4.2 %Normal1.7-12.0[facility] Comment on above:Performed By: #### CBC #### [facility] [address] [place] [address] Dr. Domi FraustoUT #5.0 103/ulNormal1.4-6.5The [facility] HospitalComment on above:Performed By: #### CBC #### [facility] [address] [place] [address] Dr. Domi Fraustoutrophils/100 WBC (Bld)71.7 %Pjxrhs31.0-75.0The [facility] HospitalComment on above:Performed By: #### CBC #### [facility] [address] [place] [address] Dr. Domi Kellogglet mean volume (Bld) [Entitic vol]8.6 fLCritically low 9.5-13.5The [facility] HospitalComment on above:Performed By: #### CBC #### [facility] [address] [place] [address] Dr. oDmi SaleemPLT265 103/dyTujuzj316-925Emm [facility] HospitalComment on above: Performed By: #### CBC #### [facility] [address] [place] [address] Dr. Domi SaleemRBC4.70 106/ulNormal4.20-5.40The [facility] HospitalComment on above:Performed By: #### CBC #### [facility] [address] [place] [address] Dr. Domi SaleemWBC6.9 103/ulNormal4.0-11.0The [facility] HospitalComment on above: Performed By: #### CBC #### [facility] [address] [place] [address] Dr. Domi Arango 14(COMP METB)on 26-78-9463Lfxbnlf [Mass/Vol]3.7 g/dLNormal 3.4-5.0The [facility] HospitalComment on above:Performed By: #### CMP #### [facility] [address] [place] [address] Dr. Domi SaleemAlbumin/Globulin [Mass ratio]0.9 {ratio}NormalThe Community Memorial HospitalComment on above:Performed By: #### CMP #### [facility] [address] [place] [address] Dr. Domi ChenP [Catalytic activity/Vol]101 U/WHsmsvz95-695Ywd [facility] HospitalComment on above:Performed By: #### CMP #### [facility] [address] [place] [address] Dr. Domi ChenT [Catalytic activity/Vol]15 U/QNkmyyy05-72Wvh [facility] HospitalComment on above:Performed By: #### CMP #### [facility] [address] [place] [address] Dr. Domi Escalante gap [Moles/Vol]11.9 mmol/LNormalThe [facility] Comment on above:Performed By: #### CMP #### [facility] [address] [place] [address] Dr. Domi SaleemAST [Catalytic activity/Vol]16 U/OTqekqn95-76Xvb [facility] HospitalComment on above:Performed By: #### CMP #### [facility] [address] [place] [address] Dr. Domi SaleemBilirubin [Mass/Vol]0.3 mg/dLNormal0.2-1.0[facility] Comment on above:Performed By: #### CMP #### [facility] [address] [place] [address] Dr. Domi SaleemCalcium [Mass/Vol]9.0 mg/dLNormal8.5-10.1[facility] Comment on above:Performed By: #### CMP #### [facility] [address] [place] [address] Dr. Domi SaleemChloride [Moles/Vol]100 mmol/LCfrkmp12-250Xio [facility] Comment on above:Performed By: #### CMP #### [facility] [address] [address] [address] Domi SaleemCO2 [Moles/Vol]29.0 mmol/BYpbted34.0-32.0[facility] Comment on above:Performed By: #### CMP #### [facility] [address] [address] [address] Domi SaleemCreatinine [Mass/Vol]0.69 mg/dLNormal0.55-1.02The [facility] HospitalComment on above:Performed By: #### CMP #### [facility] [address] [place] [address] Dr. Duron ChangEGFR-AF GUAMANIAN>60Normal>=60The [facility] Memorial HospitalComment on above:Performed By: #### CMP #### [facility] [address] [address] [address] Domi LeeGFR-NON AF GUAMANIAN>60Normal>=60The [facility] HospitalComment on above:Performed By: #### CMP #### [facility] [address] [address] [address] Domi SaleemGlobulin (S) [Mass/Vol]4.2 g/dLNormalThe Community Memorial HospitalComment on above:Performed By: #### CMP #### [facility] [address] [address] [address] Domi SaleemGlucose [Mass/Vol]124 mg/dLCritically hobt45-069Yhn [facility] HospitalComment on above:Performed By: #### CMP #### [facility] [address] [address] [address] Doim SaleemPotassium [Moles/Vol]4.9 mmol/LNormal3.5-5.1[facility] Comment on above:Performed By: #### CMP #### [facility] [address] [address] [address] Domi SaleemProtein [Mass/Vol]7.9 g/dLNormal6.4-8.2[facility] Comment on above:Performed By: #### CMP #### [facility] [address] [address] [address] Domi SaleemSodium [Moles/Vol]136 mmol/ZCcyrdo723-475Qhj [facility] Comment on above:Performed By: #### CMP #### [facility] [address] [address] [address] Domi SaleemUrea nitrogen [Mass/Vol]9.0 mg/dLNormal7.0-18.0The [facility] HospitalComment on above:Performed By: #### CMP #### [facility] [address] [address] [address] Domi SaleemUrea nitrogen/Creatinine [Mass ratio]13.0 mg/mgNormalThe Community Memorial HospitalComment on above:Performed By: #### CMP #### [facility] [address] [address] [address] Domi Domínguez RATE WESTERGRENon 75-09-3340VMR RATE21 mm/hrNormal<=30The [facility] Memorial HospitalComment on above:Performed By: #### SEDR #### [facility] [address] [address] [address] Domi SaleemCHEMISTRYOrdered By: SYSTEM SYSTEM on 94-22-3282Qdgwd gap [Moles/Vol]14 mmol/LNormal6 - 16 mEq/LFTMC RemisolCalcium [Mass/Vol]9.2 mg/dL Normal8.9 - 11.1 mg/dLFT RemisolChloride [Moles/Vol]92 mmol/ROkd141 - 111 mmol/LFTMC RemisolCO2 [Moles/Vol]28 mmol/XFfzowi16 - 31 mmol/LFTMC Remisol Creatinine [Mass/Vol]0.8 mg/dLNormal0.5 - 1.3 mg/dLFT RemisolGFR/1.73 sq M.predicted among blacks MDRD (S/P/Bld) [Vol rate/Area]mL/min/1.73 g4Jslqsw >=59mL/min/1.73 m2FT Chem SGFR/1.73 sq M.predicted among non-blacks MDRD (S/P/Bld) [Vol rate/Area]mL/min/1.73 u5Bllyhb>=59mL/min/1.73 m2FT Chem S Glucose [Mass/Vol]108 mg/bQQefnpn01 - 199 mg/dLFTMC RemisolPotassium [Moles/Vol] 4.0 mmol/LNormal3.5 - 5.3 mmol/LFTMC RemisolSodium [Moles/Vol]130 mmol/TRum064 - 145 mmol/LFTMC RemisolUrea nitrogen [Mass/Vol]16 mg/dLNormal5 - 21 mg/dLFTMC RemisolUrea nitrogen/Creatinine [Mass ratio]20 mg/ozByvlsy86 - 20[facility] Remisol HEMATOLOGYOrdered By: Michael Ellsworth on 79-51-5656Glksoclotol distribution width (RBC) [Ratio]13.2 %Yshbhj01.9 - 14.2 %[facility] HemeAutoSSHematocrit (Bld) [Volume fraction]42.8 %Lttehb88.0 - 46.0 %[facility] HemeAutoSSHemoglobin (Bld) [Mass/Vol]15.1 g/bXReofmv00.0 - 16.0 gm/dLFTMC HemeAutoSSMCH (RBC) [Entitic mass]31.6 jtLdxlhh87.0 - 34.0 pgFTMC HemeAutoSSMCHC (RBC) [Mass/Vol]35.2 g/dL Dkgptk51.4 - 36.0 gm/dLFTMC HemeAutoSSMCV (RBC) [Entitic vol]89.7 aZFigtps74.0 - 100.0 fLFTMC HemeAutoSSPlatelet mean volume (Bld) [Entitic vol]6.8 fLNormal6.4 - 10.8 fLFTMC HemeAutoSSPlatelets (Bld) [#/Vol]275.0 E9/RCvgmyy738.0 - 500.0 E9/L [facility] HemeAutoSSRBC (Bld) [#/Vol]4.8 E12/LNormal4.3 - 5.9 E12/LFTMC HemeAutoSSWBC corrected for nucl RBC Auto (Bld) [#/Vol]7.3 E9/LNormal4.0 - 11.0 E9/LFTMC HemeAutoSSCBC AUTO DIFFon 80-27-2249YILN #0.1 103/ulNormal0.0-0.1The [facility] HospitalComment on above:Performed By: #### CBC #### [facility] [address] [address] [address] Domi SaleemBasophils/100 WBC (Bld)0.9 %Normal0.2-2.0[facility] Comment on above:Performed By: #### CBC #### [facility] [address] [address] [address] Domi Romero #0.2 103/ulNormal0.0-0.7The [facility] HospitalComment on above: Performed By: #### CBC #### [facility] [address] [place] [address] Dr. Domi Leeosinophils/100 WBC (Bld)2.4 %Normal0.9-7.0[facility] Comment on above:Performed By: #### CBC #### [facility] [address] [address] [address] Domi Leerythrocyte distribution width (RBC) [Ratio]12.6 %Fwwqik32.0-15.0 The [facility] Memorial HospitalComment on above:Performed By: #### CBC #### [facility] [address] [place] [address] Dr. Domi SaleemHematocrit (Bld) [Volume fraction]44.4 %Syuvac72.0-48.0The [facility] HospitalComment on above:Performed By: #### CBC #### [facility] [address] [place] [address] Dr. Domi SaleemHemoglobin (Bld) [Mass/Vol]15.1 g/pDJigsri24.0-16.0The [facility] HospitalComment on above:Performed By: #### CBC #### [facility] [address] [place] [address] Dr. Domi Olivera #0.04 10e3/ulCritically high0.00-0.03[facility] Comment on above:Performed By: #### CBC #### [facility] [address] [address] [address] Domi Olivera %0.5 %Normal0.0-0.5The [facility] HospitalComment on above: Performed By: #### CBC #### [facility] [address] [address] [address] Domi De La O #1.6 103/ulNormal1.2-3.8The [facility] HospitalComment on above:Performed By: #### CBC #### [facility] [address] [address] [address] Domi Olivareshocytes/100 WBC (Bld)19.1 %Critically low20.5-60.0The [facility] Memorial HospitalComment on above:Performed By: #### CBC #### [facility] [address] [address] [address] Domi Montes DIFF REQNONormalThe Community Memorial HospitalComment on above: Performed By: #### CBC #### [facility] [address] [address] [address] Domi Felipe (RBC) [Entitic mass]31.5 izEowjtv54.7-34.0The [facility] HospitalComment on above:Performed By: #### CBC #### [facility] [address] [place] [address] Dr. Domi Curiel (RBC) [Mass/Vol]34.0 g/uHVuyenw08.9-35.2The [facility] HospitalComment on above:Performed By: #### CBC #### [facility] [address] [place] [address] Dr. Domi Curiel (RBC) [Entitic vol]92.5 sCYzgogr61.0-99.0The [facility] HospitalComment on above:Performed By: #### CBC #### [facility] [address] [place] [address] Dr. Domi Chavez #0.5 103/ulNormal0.3-0.8The [facility] HospitalComment on above:Performed By: #### CBC #### [facility] [address] [address] [address] Domi Kramerocytes/100 WBC (Bld)6.1 %Normal1.7-12.0[facility] Comment on above:Performed By: #### CBC #### [facility] [address] [place] [address] Dr. Domi FraustoUT #5.8 103/ulNormal1.4-6.5The [facility] HospitalComment on above:Performed By: #### CBC #### [facility] [address] [place] [address] Dr. Domi Fraustoutrophils/100 WBC (Bld)71.0 %Voftho10.0-75.0The [facility] Memorial HospitalComment on above:Performed By: #### CBC #### [facility] [address] [place] [address] Dr. Domi SaleemPlatelet mean volume (Bld) [Entitic vol]8.7 fLCritically low 9.5-13.5The Community Memorial HospitalComment on above:Performed By: #### CBC #### [facility] [address] [place] [address] Dr. Domi SaleemPLT246 103/hxUmodsd308-994Zxi Community Memorial HospitalComment on above: Performed By: #### CBC #### [facility] [address] [place] [address] Dr. Domi SaleemRBC4.80 106/ulNormal4.20-5.40The Community Memorial HospitalComment on above:Performed By: #### CBC #### [facility] [address] [place] [address] Dr. Domi SaleemWBC8.2 103/ulNormal4.0-11.0The Community Memorial HospitalComment on above: Performed By: #### CBC #### [facility] [address] [place] [address] Dr. Domi SaleemGLYCOHEMOGLOBIN A1Con 24-25-0162JQT RECOMMENDATIONSEE BELOWNormal The Community Memorial HospitalComment on above:Result Comment: ADA RECOMMENDED LIMIT 4.0 - 6.0 ADA THERAPEUTIC TARGET < 7.0 ACTION SUGGESTED > 7.0Performed By: #### A1C #### [facility] [address] [place] [address] Dr. Domi SaleemGlucose [Mass/Vol]117 mg/dLNormalThe Community Memorial HospitalComment on above:Performed By: #### A1C #### [facility] [address] [address] [address] Domi SaleemHbA1c (Bld) [Mass fraction]5.7 %Normal4.5-6.2The Community Memorial HospitalComment on above:Performed By: #### A1C #### [facility] [address] [place] [address] Dr. Domi SaleemPROF 14(COMP METB)on 95-75-7211Bpyylhf [Mass/Vol]4.0 g/dLNormal 3.4-5.0The [facility] Memorial HospitalComment on above:Performed By: #### CMP #### [facility] [address] [place] [address] Dr. Domi SaleemAlbumin/Globulin [Mass ratio]1.1 {ratio}NormalThe Community Memorial HospitalComment on above:Performed By: #### CMP #### [facility] [address] [place] [address] Dr. Domi Parekh [Catalytic activity/Vol]91 U/KQyrwrc61-823Sij [facility] Westment on above:Performed By: #### CMP #### [facility] [address] [place] [address] Dr. Domi Dow [Catalytic activity/Vol]16 U/LBblupe64-13Wkf [facility] HospitalCommymichigan medical center on above:Performed By: #### CMP #### [facility] [address] [place] [address] Dr. Domi Escalante gap [Moles/Vol]10.3 mmol/LNormalThe [facility] Comment on above:Performed By: #### CMP #### [facility] [address] [place] [address] Dr. Domi SaleemAST [Catalytic activity/Vol]24 U/PEgniut04-85Yce [facility] HospitalComment on above:Performed By: #### CMP #### [facility] [address] [place] [address] Dr. Domi SaleemBilirubin [Mass/Vol]0.5 mg/dLNormal0.2-1.0[facility] Comment on above:Performed By: #### CMP #### [facility] [address] [place] [address] Dr. Domi SaleemCalcium [Mass/Vol]9.1 mg/dLNormal8.5-10.1[facility] Comment on above:Performed By: #### CMP #### [facility] [address] [place] [address] Dr. Domi SaleemChloride [Moles/Vol]95 mmol/LCritically anh11-207Apy Community [facility] HospitalComment on above:Performed By: #### CMP #### [facility] [address] [place] [address] Dr. Domi SaleemCO2 [Moles/Vol]27.4 mmol/BQijzuh20.0-32.0[facility] Comment on above:Performed By: #### CMP #### [facility] [address] [place] [address] Dr. Domi aSleemCreatinine [Mass/Vol]0.77 mg/dLNormal0.55-1.02The [facility] HospitalComment on above:Performed By: #### CMP #### [facility] [address] [place] [address] Dr. Domi LeeGFR-AF GUAMANIAN>60Normal>=60The Community Memorial HospitalComment on above:Performed By: #### CMP #### [facility] [address] [place] [address] Dr. Domi LeeGFR-NON AF GUAMANIAN>60Normal>=60The [facility] HospitalComment on above:Performed By: #### CMP #### [facility] [address] [place] [address] Dr. Domi SaleemGlobulin (S) [Mass/Vol]3.8 g/dLNormUniversity Hospitals TriPoint Medical CenterComment on above:Performed By: #### CMP #### [facility] [address] [place] [address] Dr. Domi SaleemGlucose [Mass/Vol]141 mg/dLCritically abmm76-408Gtn Community [facility] HospitalComment on above:Performed By: #### CMP #### [facility] [address] [address] [address] Domi SaleemPotassium [Moles/Vol]4.7 mmol/LNormal3.5-5.1[facility] Comment on above:Performed By: #### CMP #### [facility] [address] [place] [address] Dr. Domi SaleemProtein [Mass/Vol]7.8 g/dLNormal6.4-8.2The [facility] Comment on above:Performed By: #### CMP #### [facility] [address] [place] [address] Dr. Domi SaleemSodium [Moles/Vol]128 mmol/LCritically dxf230-960Hka Community [facility] HospitalComment on above:Performed By: #### CMP #### [facility] [address] [place] [address] Dr. Domi SaleemUrea nitrogen [Mass/Vol]14.0 mg/dLNormal7.0-18.0The [facility] HospitalComment on above:Performed By: #### CMP #### [facility] [address] [place] [address] Dr. Domi SaleemUrea nitrogen/Creatinine [Mass ratio]18.2 mg/mgNormalThCoshocton Regional Medical CenterComment on above:Performed By: #### CMP #### [facility] [address] [place] [address] Dr. Domi Domínguez RATE WESTERGRENon 49-50-7894ABL RATE34 mm/hrCritically high <=30The [facility] Memorial HospitalComment on above:Performed By: #### SEDR #### [facility] [address] [place] [address] Dr. Domi Chavez AUTO DIFFon 91-92-7399STVK #0.1 103/ulNormal0.0-0.1The Community Memorial HospitalComment on above:Performed By: #### CBC #### [facility] [address] [address] [address] Domi SaleemBasophils/100 WBC (Bld)1.2 %Normal0.2-2.0The [facility] Comment on above:Performed By: #### CBC #### [facility] [address] [address] [address] Domi Romero #0.2 103/ulNormal0.0-0.7The [facility] HospitalComment on above: Performed By: #### CBC #### [facility] [address] [place] [address] Dr. Domi Leeosinophils/100 WBC (Bld)4.0 %Normal0.9-7.0The [facility] Comment on above:Performed By: #### CBC #### [facility] [address] [place] [address] Dr. Domi Leerythrocyte distribution width (RBC) [Ratio]12.8 %Vssznc10.0-15.0 The Community Memorial HospitalComment on above:Performed By: #### CBC #### [facility] [address] [place] [address] Dr. Domi SaleemHematocrit (Bld) [Volume fraction]45.2 %Oscpes17.0-48.0The Community Memorial HospitalComment on above:Performed By: #### CBC #### [facility] [address] [address] [address] Domi SaleemHemoglobin (Bld) [Mass/Vol]15.0 g/cMOulyqh07.0-16.0The [facility] HospitalComment on above:Performed By: #### CBC #### [facility] [address] [place] [address] Dr. Domi Olivera #0.02 10e3/ulNormal0.00-0.03The [facility] HospitalComment on above:Performed By: #### CBC #### [facility] [address] [address] [address] Domi Olivera %0.4 %Normal0.0-0.5The [facility] Memorial HospitalComment on above: Performed By: #### CBC #### [facility] [address] [address] [address] Domi De La O #1.1 103/ulCritically low1.2-3.8The [facility] Comment on above:Performed By: #### CBC #### [facility] [address] [address] [address] Domi Olivareshocytes/100 WBC (Bld)22.8 %Poapyk08.5-60.0The [facility] HospitalComment on above:Performed By: #### CBC #### [facility] [address] [place] [address] Dr. Domi TsaiUAL DIFF REQNONormalThe Community Memorial HospitalComment on above: Performed By: #### CBC #### [facility] [address] [address] [address] Domi Curiel (RBC) [Entitic mass]31.4 yuUbrmwy87.7-34.0The [facility] Memorial HospitalComment on above:Performed By: #### CBC #### [facility] [address] [place] [address] Dr. Domi Curiel (RBC) [Mass/Vol]33.2 g/eYXazlgj31.9-35.2The [facility] Memorial HospitalComment on above:Performed By: #### CBC #### [facility] [address] [place] [address] Dr. Domi Curiel (RBC) [Entitic vol]94.8 rGQnpzlt02.0-99.0The [facility] HospitalComment on above:Performed By: #### CBC #### [facility] [address] [place] [address] Dr. Domi Chavez #0.3 103/ulNormal0.3-0.8The [facility] HospitalComment on above:Performed By: #### CBC #### [facility] [address] [address] [address] Domi Kramerocytes/100 WBC (Bld)6.8 %Normal1.7-12.0[facility] Comment on above:Performed By: #### CBC #### [facility] [address] [place] [address] Dr. Domi FraustoUT #3.2 103/ulNormal1.4-6.5The [facility] HospitalComment on above:Performed By: #### CBC #### [facility] [address] [place] [address] Dr. Domi Fraustoutrophils/100 WBC (Bld)64.8 %Nytznf25.0-75.0The [facility] HospitalComment on above:Performed By: #### CBC #### [facility] [address] [place] [address] Dr. Domi SaleemPlatelet mean volume (Bld) [Entitic vol]8.9 fLCritically low 9.5-13.5The [facility] HospitalComment on above:Performed By: #### CBC #### [facility] [address] [place] [address] Dr. Domi SaleemPLT222 103/rjShlwop307-828Ssp [facility] HospitalComment on above: Performed By: #### CBC #### [facility] [address] [place] [address] Dr. Domi SaleemRBC4.77 106/ulNormal4.20-5.40The [facility] HospitalComment on above:Performed By: #### CBC #### [facility] [address] [place] [address] Dr. Domi SaleemWBC5.0 103/ulNormal4.0-11.0The [facility] on above: Performed By: #### CBC #### [facility] [address] [place] [address] Dr. Domi SaleemPROF 14(COMP METB)on 27-34-1018Qpvfbpe [Mass/Vol]3.6 g/dLNormal 3.4-5.0The [facility] HospitalComment on above:Performed By: #### CMP #### [facility] [address] [address] [address] Domi SaleemAlbumin/Globulin [Mass ratio]1.0 {ratio}NormalThe Community Memorial HospitalComment on above:Performed By: #### CMP #### [facility] [address] [address] [address] Domi ChenP [Catalytic activity/Vol]79 U/VPezuqi31-863Lmt [facility] HospitalComment on above:Performed By: #### CMP #### [facility] [address] [address] [address] Domi ChenT [Catalytic activity/Vol]19 U/MPmnagm89-40Uxb [facility] HospitalComment on above:Performed By: #### CMP #### [facility] [address] [place] [address] Dr. Domi Silvaon gap [Moles/Vol]10.0 mmol/LNormalThe [facility] Comment on above:Performed By: #### CMP #### [facility] [address] [place] [address] Dr. Domi SaleemAST [Catalytic activity/Vol]13 U/LCritically iwi30-76Bus [facility] HospitalComment on above:Performed By: #### CMP #### [facility] [address] [place] [address] Dr. Domi SaleemBilirubin [Mass/Vol]0.3 mg/dLNormal0.2-1.0The [facility] Comment on above:Performed By: #### CMP #### [facility] [address] [place] [address] Dr. Domi SaleemCalcium [Mass/Vol]8.4 mg/dLCritically low8.5-10.1The [facility] HospitalComment on above:Performed By: #### CMP #### [facility] [address] [place] [address] Dr. Domi SaleemChloride [Moles/Vol]101 mmol/TNtwmok57-790Taa [facility] Comment on above:Performed By: #### CMP #### [facility] [address] [address] [address] Domi SaleemCO2 [Moles/Vol]31.3 mmol/XZhexuw96.0-32.0The [facility] Comment on above:Performed By: #### CMP #### [facility] [address] [address] [address] Domi SaleemCreatinine [Mass/Vol]0.75 mg/dLNormal0.55-1.02The [facility] HospitalComment on above:Performed By: #### CMP #### [facility] [address] [address] [address] Duron ChangEGFR-AF GUAMANIAN>60Normal>=60The [facility] HospitalComment on above:Performed By: #### CMP #### [facility] [address] [place] [address] Dr. Domi LeeGFR-NON AF GUAMANIAN>60Normal>=60The [facility] HospitalComment on above:Performed By: #### CMP #### [facility] [address] [address] [address] Domi SaleemGlobulin (S) [Mass/Vol]3.6 g/dLNormalThe [facility] HospitalComment on above:Performed By: #### CMP #### [facility] [address] [address] [address] Domi SaleemGlucose [Mass/Vol]120 mg/dLCritically dckt10-363Iqy [facility] HospitalComment on above:Performed By: #### CMP #### [facility] [address] [place] [address] Dr. Domi SaleemPotassium [Moles/Vol]5.3 mmol/LCritically high3.5-5.1The [facility] HospitalComment on above:Performed By: #### CMP #### [facility] [address] [address] [address] Domi SaleemProtein [Mass/Vol]7.2 g/dLNormal6.1-8.2The [facility] Comment on above:Performed By: #### CMP #### [facility] [address] [address] [address] Domi SaleemSodium [Moles/Vol]137 mmol/XWrdyqo201-032Jyn [facility] Comment on above:Performed By: #### CMP #### [facility] [address] [address] [address] Domi SaleemUrea nitrogen [Mass/Vol]20.0 mg/dLCritically high7.0-18.0The [facility] HospitalComment on above:Performed By: #### CMP #### [facility] [address] [address] [address] Domi Caldwell nitrogen/Creatinine [Mass ratio]26.7 mg/mgNormalThe Community [facility] HospitalComment on above:Performed By: #### CMP #### [facility] [address] [address] [address] Domi Domínguez RATE WESTERGRENon 03-09-7442FZR RATE13 mm/hrNormal<=30The [facility] HospitalComment on above:Performed By: #### SEDR #### [facility] [address] [place] [address] Dr. Domi SaleemCNOVSPon 33-11-6695MRESFRMrbiv (SP) Office ([facility]MAC[place]) RUMA CARLTON ([id number]) 1960 F Date Time Provider Department 08/20/18 [...] GRAN CT + CBC (FOR REMOTE [facility] USE) - COMP METABOLIC PANEL - [...] Gilman MD Referring Provider: CARMELITA SINGH JR [[id number]] Allergies As of Date: 08/20/2018 Noted Allergy [...] (FOR REMOTE [facility] USE) [SQRAGCBC] Order #: [id number] FUTURE COMP METABOLIC PANEL [SQCMP] Order #: [id number] FUTURE PROTEIN ELECTROPHORESIS W/INTERP [SQSEPG] Order #: [id number] FUTURE IMMUNOFIXATION SCREEN, SERUM [SQIFESC] Order #: [id number] FUTURE KAPPA/GERMAIN,FREE,SER [SQKLFRS] Order #: [id number] FUTURE LUPUS ANTICOAG PL [SQLUPUSP] Order #: [id number] FUTURE Disposition: Return in about 1 year [...] Encounter Status:Closed by LEDY GILMAN MD on 08/20/18NoMcCullough-Hyde Memorial HospitalKAIon 19-13-6442Uupmuyv mass concHNO ID: [id number] Author: Ledy Gilman Service: ? Author Type: [...] GRAN CT + CBC (FOR REMOTE [facility] USE) - COMP METABOLIC PANEL - PROTEIN ELECTROPHORESIS W/INTERP - IMMUNOFIXATION SCREEN, SERUM - KAPPA/GERMAIN,FREE,SER - LUPUS ANTICOAG PL 2. 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 Will check labs and see me in follow up - ABS GRAN CT + CBC (FOR REMOTE [facility] USE) - COMP METABOLIC PANEL - PROTEIN ELECTROPHORESIS W/INTERP - IMMUNOFIXATION SCREEN, SERUM - KAPPA/GERMAIN,FREE,SER - LUPUS ANTICOAG PL Ledy Gilman MDNormalCOhioHealth Grove City [facility] Vital Signs Date TimeVital SignValuePerforming LdhhpbpkqIuidexcc50-15-4433 15:23-0400Body wwwsuq045.48 cmAnibal Chaudhary MD Work Phone: [phone]10-01-2025 15:23-0400 Body mass index (BMI) [Ratio]43.7 kg/e6YimrpwAnibal Chaudhary MD Work Phone: [phone]10-01-2025 15:23-0400 Body ylaxfpyqeig42.9 [degF]Anibal Chaudhary MD Work Phone: [phone]10-01-2025 15:23-0400 Body .52 kgAnibal Chaudhary MD Work Phone: [phone]10-01-2025 15:23-0400 Diastolic blood hhkndbod23 mm[Hg]Anibal Chaudhary MD Work Phone: [phone]10-01-2025 15:23-0400 Heart rate49 /Aleena Chaudhary MD Work Phone: [phone]10-01-2025 15:23-0400 Respiratory rate18 /Aleena Chaudhary MD Work Phone: [phone]10-01-2025 15:23-0400 SaO2% (BldA) [Mass fraction]95 %Anibal Chaudhary MD Work Phone: [phone]11[facility]10-01-2025 15:23-0400 Systolic blood bjavwiyd43 mm[Hg]Anibal Chaudhary MD Work Phone: [phone] [place], [place] 4823709-30-2025 11:13-0400 Body ygakux605.48 cmAnibal Chaudhary MD Work Phone: [phone] [place], [place] 4823709-30-2025 11:13-0400 Body mass index (BMI) [Ratio]43.6 kg/e9TdjhzyAnibal Chaudhary MD Work Phone: [phone] [place], [place] 4823709-30-2025 11:130400 Body pdlosd983.12 Eduin Chaudhary MD Work Phone: [phone] [place], [place] 4823709-30-2025 11:13-0400 Diastolic blood mm[Hg]Anibal Chaudhary MD Work Phone: [phone] [place], [place] 4823709-30-2025 11:13-0400 Heart rate48 /Aleena Chaudhary MD Work Phone: [phone] [place], [place] 4823709-30-2025 11:13-0400 Respiratory rate14 /Aleena Chaudhary MD Work Phone: [phone] [place], [place] 4823709-30-2025 11:13-0400 SaO2% (BldA) [Mass fraction]96 %Anibal Chaudhary MD Work Phone: [phone] [place], [place] 4823709-30-2025 11:13-0400 Systolic blood yluodjhs32 mm[Hg]Anibal Chaudhary MD Work Phone: [phone] [place], [place] 4823703-07-2025 11:36-0500 Body .48 cm[facility]03-07-2025 11:36-0500Body mass index (BMI) [Ratio]46.7 kg/z9GefzsskcrEast [facility] Hospital03-07-2025 11:36-0500Body .83 kgEast [facility]03-07-2025 11:36-0500Diastolic blood ohamikwx12 mm[Hg][facility] 05-28-2024 11:36-0500Heart rate77 /[facility] 05-28-2024 11:36-0500Respiratory rate14 /[facility] 05-28-2024 11:36-2038GmY7% (BldA) [Mass fraction]99 %[facility]03-07-2025 11:36-0500Systolic blood bxagmerx235 mm[Hg][facility]10-31-2024 10:09-0400Body .48 cmMD Anibal Chaudhary Work Phone: [phone]10-31-2024 10:09-0400 Body mass index (BMI) [Ratio]47.9 kg/m2MD Anibal Chaudhary Work Phone: [phone] [place], [place] 2681410-31-2024 10:09-0400 Body lkjeqs026.95 kgMD Anibal Chaudhary Work Phone: [phone]10-31-2024 10:09-0400 Diastolic blood vufobxuf63 mm[Hg]MD Anibal Chaudhary Work Phone: [phone]10-31-2024 10:09-0400 Heart baax557 /minMD Anibal Chaudhary Work Phone: [phone]10-31-2024 10:09-0400 SaO2% (BldA) [Mass fraction]99 %MD Anibal Chaudhary Work Phone: [phone]10-31-2024 10:09-0400 Systolic blood xyvlbooq509 mm[Hg]MD Anibal Chaudhary Work Phone: [phone]08-05-2024 13:42-0400 Body ulbfur976.48 cmEast [facility]08-05-2024 13:42-0400Body mass index (BMI) [Ratio]49.1 kg/b5QzybjyqjqEast [facility]08-05-2024 13:42-0400Body jgallj660.01 kgEast [facility] Hospital08-05-2024 13:42-0400Diastolic blood dolfqvlg88 mm[Hg][facility] 10-27-2023 13:42-0400Heart rate91 /[facility] 10-27-2023 13:42-0400Systolic blood plvkrche623 mm[Hg][facility]05-28-2024 10:39-0400Body aclsov430.48 cmMD Anibal Chaudhary Work Phone: [phone]05-28-2024 10:39-0400 Body mass index (BMI) [Ratio]48.4 kg/m2MD Anibal Chaudhary Work Phone: [phone]05-28-2024 10:39-0400 Body vmlrid349.2 kgMD Anbial Chaudhary Work Phone: [phone]05-28-2024 10:39-0400 Diastolic blood jqhhswal19 mm[Hg]MD Anibal Chaudhary Work Phone: [phone]05-28-2024 10:39-0400 Heart rate73 /minMD Anibal Chaudhary Work Phone: [phone]05-28-2024 10:39-0400 SaO2% (BldA) [Mass fraction]98 %MD Anibal Chaudhary Work Phone: [phone]05-28-2024 10:39-0400 Systolic blood uurcjxbz356 mm[Hg]MD Anibal Chaudhary Work Phone: [phone]02-15-2024 14:56-0500 Body ppotmj791.48 cmMD Anibal Chaudhary Work Phone: [phone] [place], [place] 2681402-15-2024 14:56-0500 Body mass index (BMI) [Ratio]42.6 kg/m2MD Anibal Chaudhary Work Phone: [phone]02-15-2024 14:56-0500 Body xilgtk941.74 kgMD Anibal Chaudhary Work Phone: [phone]02-15-2024 14:56-0500 Diastolic blood deizjguv13 mm[Hg]MD Anibal Chaudhary Work Phone: [facility]02-15-2024 14:56-0500 Heart rate85 /minMD Anibal Chaudhary Work Phone: [facility]02-15-2024 14:56-0500 Systolic blood bmioaxee643 mm[Hg]MD Anibal Chaudhary Work Phone: [facility]10-06-2023 14:45-0400 Body pywwyq504.48 cmAnibal Chaudhary Other [employer] Other 10-06-2023 14:45-0400Body mass index (BMI) [Ratio] 38.59 kg/y2BxlbjaAnibal Chaudhary Other [facility] Other 10-06-2023 14:45-0400Body nvdiku10.71 kgAnibal Chaudhary Other [employer] Other 10-06-2023 14:45-0400Diastolic blood egrfmkha87 mm[Hg] Anibal Chaudhary Other [facility] Other 10-06-2023 14:45-8441DuE5% (BldA) [Mass fraction]99 % Anibal Chaudhary Other [employer] Other 10-06-2023 14:45-0400Systolic blood jrpnjkoc376 mm[Hg] nAibal Chaudhary Other [employer] Other 10-03-2023 08:00-0400Body smplsxnpagj87.2 [degF]MD Anibal Chaudhary Work Phone: [facility]10-03-2023 08:00-0400 Diastolic blood azarteef04 mm[Hg]MD Anibal Chaudhary Work Phone: [facility]10-03-2023 08:00-0400 Heart rate93 /minMD Anibal Chaudhary Work Phone: [facility]10-03-2023 08:00-0400 Respiratory rate18 /minMD Anibal Chaudhary Work Phone: [phone]10-03-2023 08:00-0400 SaO2% (BldA) [Mass fraction]99 %MD Anibal Chaudhary Work Phone: [phone]10-03-2023 08:00-0400 Systolic blood owudpgdz507 mm[Hg]MD Anibal Chaudhary Work Phone: [phone]10-03-2023 02:42-0400 Body eayioo379.48 cmMD Anibal Chaudhary Work Phone: [phone]10-03-2023 02:42-0400 Body yhjkjv78.4 kg Anibal Chaudhary Work Phone: [phone]11[facility]08-25-2023 13:00-0400 Body ouyzcj919.48 cmAnibal Chaudhary Other [employer] Other 08-25-2023 13:00-0400Body mass index (BMI) [Ratio] 39.69 kg/h3RnjegyAnibal Chaudhary Other [employer] Other 08-25-2023 13:00-0400Body jrsecw03.43 kgAnibal Chaudhary Other [email or web address] Other 08-25-2023 13:00-0400Diastolic blood pxclffel26 mm[Hg] Anibal Chaudhary Other [email or web address] Other 08-25-2023 13:00-0400Systolic blood xhzwmaxx058 mm[Hg] Anibal Chaudhary Other [employer] Other 06-22-2023 11:30-0400Body cfjmoc087.48 cmAnibal Chaudhary Other [employer] Other 06-22-2023 11:30-0400Body mass index (BMI) [Ratio] 39.14 kg/u8Qiixda Chaudhary Other [employer] Other 06-22-2023 11:30-0400Body gykchg21.07 kgAnibal Chaparro Other [employer] Other 06-22-2023 11:30-0400Diastolic blood qxuwcfvl23 mm[Hg] Anibal Chaudhary Other [employer] Other 06-22-2023 11:30-0400Systolic blood hjbygvri539 mm[Hg] Anibal Chaudhary Other [employer] Other 02-06-2023 09:45-0500Body .48 cmAnibal Chaparro Other [employer] Other 02-06-2023 09:45-0500Body mass index (BMI) [Ratio] 47.55 kg/q3Rkptjg Chaparro Other [employer] Other 02-06-2023 09:45-0500Body .94 kgAnibal Chaudhary Other [employer] Other 02-06-2023 09:45-0500Diastolic blood vkicawwp66 mm[Hg] Anibal Chaudhary Other [employer] Other 02-06-2023 09:45-3063AdG0% (BldA) [Mass fraction]97 % Anibal Chaudhary Other [employer] Other 02-06-2023 09:45-0500Systolic blood suwaoygj364 mm[Hg] Anibal Chaparro Other [facility] [employer] Other 04-16-2021 07:58-0400Body myacvo356.02 cmAnibal Chaudhary Work Phone: [facility]47-08-5518 07:58-0400 Body .06 kgAnibal Chaudhary Work Phone: [facility] Encounters Encounter DateEncounter TypeCare ProviderFacilityStart: 01-17-2025 End: 93-81-6679kudraxhylhCXWR [facility]: 01-11-2025 End: 07-91-4858Evvzjjz encounter procedureRamy Santacruz MD-Ultrasound [facility] Work Phone: Start: 01-11-2025 End: 02-89-1247qxtkolgerkAmsyvu E Braun MD Work Phone: [phone]-Fofyecesle [facility]: 47-45-7163Qjdpmxf encounter statusAnibal Chaudhary MD Work Phone: [facility]: 40-59-9053Xnh- patient / Non-visitEhab [facility] Work Phone: Start: 12-22-2024 End: 12-94-4616odlgddvgqwCvoccv E Braun MD Work Phone: [facility] Work Phone: Start: 12-22-2024 End: 35-35-9601Rjtzuma encounter procedureRamy Santacruz MD-[facility] Work Phone: Start: 12-21-2024 End: 46-76-8744hoxgesycboGgznir E Braun MD Work Phone: [facility] Work Phone: Start: 12-21-2024 End: 07-82-9935Drpfvtf encounter procedureAnibal Chaudhary MD-[facility] Work Phone: Start: 12-21-2024 End: 19-00-6038Qreikus encounter statusAnibal Chaudhary MDAdams County Hospitaltart: 12-14-2024 End: 96-97-6897hfmnphphyoEBANGeorgetown Behavioral Hospitaltart: 15-00-3150Sxf-patient / Non-visitMelinda [facility] Work Phone: Start: 08-31-2024 End: 37-81-0741mlxruhzyyhUSGSGeorgetown Behavioral Hospitaltart: 08-04-2024 End: 85-38-4038dsdcxkhwwiUCWP [facility] Campustart: 02-86-8922ezsahppnweUNNSAEMQHODBlanchard Valley Health Systemtart: 07-21-2024 End: 80-05-1274urvhbiwndiMWTNIIVYJDOThe [facility] Start: 06-29-2024 End: 79-81-1870gxmjzzsohtGIDZGeorgetown Behavioral Hospitaltart: 05-28-2024 End: 09-72-2122fuyqxrrssmQqtnrablgProMedica [facility] Work Phone: Start: 05-28-2024 End: 18-36-1353Zcvbsoc encounter procedureWilliamtempletongwen Physician Group-[facility] Work Phone: Start: 05-26-2024 End: 76-71-8440ueeqztpamvEHXWQKAMagruder Memorial Hospitaltart: 72-34-5913Izb-patient / Non-visitThe [facility] Work Phone: Start: 05-20-2024 End: 06-48-0574rccctbgdrdXXSNFVFMagruder Memorial Hospitaltart: 33-76-8526Bjv-patient / Non-visitWilliamtempletongwen Physician Group-[facility] Work Phone: Start: 44-33-6427Duseipsxoq and management of inpatientABHISHEK [facility]tart: 47-68-9824Npo- patient / Non-visitFirtempletons Physician GroupOhio Valley Surgical Hospital OutPt Work Phone: Start: 05-11-2024 End: 48-22-1749Ereybeittr and management of inpatientOMAR [facility] Campustart: 05-11-2024 End: 80-78-4919Cwx-patient / Non-visitFirtempletons Physician [facility] Work Phone: Start: 80-26-7762Rlz-patient / Non-visitFirtempletons Physician GroupUniversal Health Services Professional Co Work Phone: Start: 94-77-5010Lvg-patient / Non-visitFirtempletons Physician [facility] Work Phone: Start: 02-05-2024 End: 03-25-2035mmpbyajjdcNKWEYWA [facility] Start: 01-22-2024 End: 44-45-3305zneufltblsST Anibal Chaudhary Work Phone: [facility] Work Phone: Start: 01-22-2024 End: 41-56-4123Lqnhfhv encounter procedureMD Anibal Chaudhary Work Phone: [facility] Work Phone: Start: 31-74-3411Ima-patient / Non-visitMD Anibal Chaudhary Work Phone: f[facility]empletons [facility] Work Phone: Start: 53-85-0702Ogr-patient / Non-visitMD Anibal Chaudhary Work Phone: [facility] Work Phone: Start: 12-04-2023 End: 91-82-3472dnjxtkicqtWM Aniabl Chaudhary Work Phone: [facility] Work Phone: Start: 12-04-2023 End: 75-82-9136Wgpciyt encounter procedureMD Anibal Chaudhary Work Phone: [facility] [place] Work Phone: Start: 12-02-2023 End: 60-85-1330Wtfqkypw ReferredMD Anibal Chaudhary Work Phone: [facility] [place] Work Phone: Start: 12-02-2023 End: 13-86-6656krbdkwsuzuIR Anibal Chaudhary Work Phone: [facility] Work Phone: Start: 12-02-2023 End: 83-69-9280Gbhxxny encounter procedureMD Anibal Chaudhary Work Phone: [facility] [place] Work Phone: Start: 11-03-2023 End: 07-80-9916oirrrxjezgIT Anibal Chaudhary Work Phone: [facility] Work Phone: Start: 11-03-2023 End: 97-29-5748Cvpmlej encounter procedureMD Anibal Chaudhary Work Phone: [facility] [place] Work Phone: Start: 10-27-2023 End: 55-22-0557ldqovalukcQowafxbtm [facility] Work Phone: Start: 10-27-2023 End: 77-84-3452Dvyhajw encounter procedureF[facility]ary [facility] Work Phone: Start: 87-85-3289Euy-patient / Non-visitF[facility]ary [facility] Work Phone: Start: 08-19-2023 End: 41-99-1612sgvfmqxhmzML Anibal Chaudhary Work Phone: [facility] Work Phone: Start: 08-19-2023 End: 19-82-1042Obkvwcc encounter procedureMD Anibal Chaudhary Work Phone: [facility] Work Phone: Start: 47-32-7470Yet-patient / Non-visitMD Anibal Chaudahry Work Phone: [facility] Work Phone: Start: 07-08-2023 End: 18-42-2471sowfnetpmrMQ Anibal Chaudhary Work Phone: [facility] Work Phone: Start: 07-08-2023 End: 32-77-0846Closzgx encounter procedureMD Anibal Chaduhary Work Phone: [facility] Campustart: 06-04-2023 End: 60-75-1055ydelqmekrsXQQQL A POCOSNot AvailableStart: 05-29-2023 End: 72-42-1402lxqbcrwfvlHokax A PocosFacility:FTMCStart: 05-29-2023 End: 80-56-1726MysuenvajWvpnf A Pocos [facility] Start: 05-29-2023 End: 66-32-4023Xzpqywjlg Result EncounterDavid A Pocos DO Work Phone: noms External Department UnsolicitedStart: 05-29-2023 End: 24-67-6314Bigvixdfl Result EncounterDavid A Pocos DO Work Phone: noms External Department UnsolicitedStart: 05-29-2023 End: 55-24-0387dkjideprbtQOCJBV BRAUNFacility:FTMCStart: 05-29-2023 End: 54-30-6387Hktjlwq encounter procedureDavid A Pocos [facility] Start: 05-16-2023 End: 14-26-3872mlhjjmshyuPUYJP A POCOSNot AvailableStart: 05-08-2023 End: 23-06-9134xlbosquozcPD Anibal Chaudhary Work Phone: [facility] Work Phone: Start: 05-08-2023 End: 82-47-9893Xzhlanu encounter procedureMD Anibal Chaudhary Work Phone: [facility] Work Phone: Start: 02-25-2023 End: 94-00-0826msdprrksrmWI Anibal Chaudhary Work Phone: [facility] Work Phone: Start: 02-25-2023 End: 34-14-8481Ncrmaudb ReferredMD Anibal Chaudhary Work Phone: [facility] Work Phone: Start: 02-11-2023 End: 31-71-4822mrwtdsiyloNrapdh Braun Other [employer] Other Start: 22-77-0215Vkokdksbk encounterMarelizabeth Bowen [facility] Cypresstart: 12-27-2022 End: 61-40-5284nbsdsdmbuaLwgpzg Braun Other noShogether [employer] Other Start: 51-19-3296Rnjxzf outpatient visit 25 minutes Anibal Bowen [facility] Cypresstart: 12-25-2022 End: 89-77-0054dqtgekjpaiTcihhd Braun Other [employer] Other Start: 19-91-5149Wpugsezdh encounterAnibal Bowen [facility] Cypresstart: 12-24-2022 End: 71-08-2564Sqoerdmozl and management of inpatientMD Anibal Chaudhary Work Phone: [facility] Work Phone: Start: 12-24-2022 End: 22-09-0682tjthepnztfa encounterMD Anibal Chaudhary Work Phone: [facility] Work Phone: Start: 12-20-2022 End: 94-51-1230mosikqgpdgDfwwhv Braun Other [employer] Other Start: 00-21-1656Zthoguqbc encounterMarcia Andrés [facility]on Medical ClinicStart: 11-15-2022 End: 83-71-2552yermcmzsvfArjqof Chaparro Other [employer] Other Start: 86-17-5615Jxgzkd outpatient visit 15 minutes Anibal [facility] ClinicStart: 09-12-2022 End: 00-86-7426olgnyzwygmOicxwu Chaudhary Other [employer] Other Start: 50-06-8788Avvano outpatient visit 25 minutes Anibal [facility] ClinicStart: 91-88-4641Edpugabss encounterMarcia Andrés Mckeon Medical ClinicStart: 07-04-2022 End: 13-56-2281pqhbajmhzsCvvtmv Chaudhary Other [employer] Other Start: 77-83-3812Snetylehs encounterMarcia Andrés Mckeon Medical ClinicStart: 06-18-2022 End: 74-44-1657dakvkzpwedVzngzyxs Ball Other [employer] Other Start: 18-63-9172Xcbfpcmbg encounterBenjamin Tim [facility] Medical ClinicStart: 05-30-2022 End: 37-40-7390uupqfozbguVqasyu Braun Other [employer] Other Start: 03-38-8510Jtrpjgyin encounterMarelizabeth Mckeon [facility]ertart: 05-27-2022 End: 83-40-0364cuarzgzinwQC DOCTOR MISCFacility:C5Jqtdr: 04-29-2022 End: 94-83-4316qnmgawtpysZddddz Braun Other [employer] Other Start: 59-92-5526Ymubkv outpatient visit 15 minutes Anibal ChaudharyGeorgetown Behavioral Hospitaltart: 09-30-9978Kkwgztvgw encounterMarelizabeth ChaudharyRhonda [facility] Cypresstart: 08-61-5111ccuxeaerinRqicirfr:39717Bkiwl: 02-11-2022 End: 45-44-3332Raiahou encounter procedureDavid A Pocos [facility] Start: 01-07-2022 End: 92-99-7718Hka-admission assessmentDavid A Pocos [facility] Start: 38-26-0845Dmagw health examinationAnibal Chaparro Other [employer]ogether [employer] Other Start: 60-75-3289Uqonxpeku for general adult medical examination without abnormal findingsDR DOCTOR MISCThe [facility] Limatart: 11-19-2021 End: 43-42-8020gxtsuhhntqFJVOJP E BRAUNFacility:M1Yjkth: 11-19-2021 End: 11-32-5100Sowmwslvh for general adult medical examination without abnormal findingsDR DOCTOR MISCFacility:M0Garom: 07-18-2021 End: 27-29-6878fadhscqyqpAG DOCTOR MISCFacility:X9Gscxj: 07-07-2020 End: 01-91-7629Vxdzrmv encounter procedureAnibal Chaudhary Work Phone: -MRI [place] Procedures DateProcedureProcedure DetailPerforming ClinicianStart: 01-11-2025 Ultrasonography of bilateral kidneysAnibal Chaudhary MD Work Phone: Start: 89-33-1251LU BONE DENSITY DEXADavid A Pocos DO Work Phone: Start: 26-98-9419OUF of headAnibal Chaparro Work Phone: Plan of Treatment DateCare ActivityDetailAuthorStart: 05-47-5435Usdvldm referralGood [facility]aritan Hospital Work Phone: Start: 02-34-3914SwdqcfejdEast [facility] Start: 92-57-9940GuswebsunAdams County Hospitaltart: 24-35-9260MchxyxhfeAdams County Hospitaltart: 37-23-9220BvnpjnyfsAdams County Hospitaltart: 87-03-6925Pfjpviic admissionAdams County Hospitaltart: 12-24-2022 [facility]tart: 96-15-0836Rydpp disorder assessment [facility]25-hydroxyvitamin D2 [Mass/volume] in Serum or PlasmaEast [facility] Regional Hospital25-hydroxyvitamin D3 [Mass/volume] in Serum or [facility]25-Hydroxyvitamin D3+25- Hydroxyvitamin D2 [Mass/volume] in Serum or [facility] HospitalComprehensive metabolic 2000 panel - Serum or [facility] HospitalGlucose measurement estimated from glycated hemoglobinEast [facility] Regional HospitalMG Breast - bilateral ScreeningEast Ohio Regional HospitalPatient referralWvumedicine [facility] Work Phone: Renal function 1999 panel - Serum or [facility] HospitalThyrotropin [Units/volume] in Serum or PlasmaEast Ohio Regional HospitalThyroxine (T4) free index in Serum or Plasma by calculationEast [facility] Regional HospitalThyroxine measurementEast [facility] Regional HospitalTriiodothyronine (T3) [Mass/volume] in Serum or Plasma [facility] HospitalTriiodothyronine resin uptake (T3RU) in Serum or [facility]ar[facility] HospitalUS Kidney - bilateralMayers [facility] Payers DatePayer CategoryPayerPolicy [id number]-[id number] [id number] Cross Blue ShieldBCBS ..[id number] 2..1.286226.3.579.2.37949-10-5870Jbobuak6870191 2..1.030459.3.579.2.76466-79-1122Rvosajx6155403 2..1.195959.3.579.2.13014-63-8266Goasuym0491404 2..1.140145.3.579.2.89414-86-4300Inbaaxy7439059 2..1.859770.3.579.2.51403-57-1155Hskufef4249711 2..1.436968.3.579.2.611288-60-8310Tjfngfm8577638 2..1.307583.3.579.2.701854-18-0971Duxppek0125535 2..840.1.619156.3.579.2.125119-32-9682Mgpxcug2697540 2..840.1.709081.3.579.2.483451-53-9871Goczvpn02092412 2..0.1.183280.3.579.2.97992-12-3670Opmabtz54598930 2..0.1.478100.3.579.2.63037-13-6930TswjgitIYX374S00383 0049f08a-630r-2b40-9f7x-95180j7uyem5Fneyqif Health [id number] huk17557-4858-63i8-u38s-[id number] 881q2649-v0t5-4bei-142[id number] 2..840.1.042844.3.579.2.531 Social History DateTypeDetailFacilityTobacco smoking status NHISUnknown if ever smokedWvumedicine Harrison Community HospitalStart: 19-70-2777Ypi Assigned At [facility] HospitalTobacco smoking statusNo Smoking Status [facility] CenterStart: 62-79-9345Ckv Assigned At [facility] CenterStart: 12-24-2022 End: 17-95-3303Zchifzd smoking status NHISCurrent some day smokerRegency Hospital [facility] CenterStart: 12-27-2022 End: 08-63-9907Xzfzyjz smoking status NHISSmoker (finding)[facility] CenterStart: 21-43-6066ZjvVxgvbi (finding)[facility]tart: 05-16-2023 End: 34-68-0741Xocyzkb smoking status NHISSmokes tobacco daily (finding) [facility] CenterStart: 95-98-5192Dpwanuf smoking status NHISEx- smoker (finding)[facility] HospitalHistory of tobacco useCigarette SmokerNOKS HealthcareStart: 08-85-2537Yikifictj beverage intakeLifetime non- drinker (finding)[facility] HealthcareStart: 15-25-5003Scatqja of Social functionNOMS HealthcareStart: 90-23-2903Wcm assigned at birthNot on fileNOKS HealthcareStart: 29-83-0570KoyFimpkuHCID Healthcare Goals DatePatient GoalDesired Activity/State Functional Status ZlfwHzucczkzjpAfbngpJhzdlspy48-33-6467Apyeacggfm statusPatient at Baseline [facility] Work Phone: Mental Status AwgyHziirhmksvIvruxhPfjrokpi24-49-5299Wywbxuoqe functionCognitive Status Patient at BaselineWvumedicine Harrison Community Hospital Work Phone: Clinical Notes 04-29-2022 to 01-11-2025 Note Date & TrnfLeraTumrwuxm59-30-2379 Radiology Diagnostic study notePROMEDICA [facility] [place] [address] Ultrasound Report Signed Patient: Ruma Carlton MR#: [id number] : 1960 Acct:[id number] Age/Sex: 64 / F ADM Date: 5 Loc: Room: Type: [facility] Attending Dr: Ramy Santacruz MD Ordering Provider: [...] Mckeon M.D. 01/11/2025 1:54 PM Dictation Location: [place] [address] Tech: Ghazala Durham Transcribed By: CHRISTIAN 01/11/25 1354 Dictated By: Prosper Mckeon DO 01/11/25 1353 Signed By: 01/11/25 1354 [facility]10-08-2025 NoteSara from [facility] made us aware of patient's 5# weight gain over the weekend. Says she took an extra lasix tablet. Currently taking lasix 40mg bid and spironolactone 12.5mg daily. I ordered labs to see if renal function would allow for increase in lasix. Will update Dr. Johnson once lab results are received.[facility]09-30-2025 Evaluation note* Diagnosis Onset Date Resolution Status Admit Date Abnormal TSH acuteSeptember 2024 11:25amCOPD (chronic obstructive pulmonary disease) acuteSeptember 2024 11:25amDyspnea on exertionacuteSept2024 11:25amScreening mammogram for breast canceracuteSept2024 11:25amCAD (coronary artery disease)acuteOctober 2024 3:21pm [facility] Work Phone: 1(236) 698-636909-30-2025 Evaluation note* Diagnosis Onset Date Resolution Status [...] with diabetic chronic kidney diseaseacuteOctober 2024 3:21pm [facility] Work Phone: 1(105) 523-569009-23-2025 NoteUT Electrophysiology Consult Note [place] [facility] Reason for visit: Palpitations 12/14/24 Patient [...] Year: No Utilities: Not At Risk (05/11/2024) [facility] Utilities Threatened with loss of utilities: [...] tablet 1 clopidogrel (Plavix) (more content not included)...[facility]06-10-2025 NoteUT Electrophysiology Consult Note [place] [facility] Reason for visit: Palpitations 08/31/2024 Patient [...] Year: No Utilities: Not At Risk (05/11/2024) [facility] Utilities Threatened with loss of utilities: [...] evening. levothyroxine (Synthroid, Levoxyl (more content not included)...[facility]05-14-2025 NoteCardiovascular Medicine [facility] SUBJECTIVE Ruma Carlton is a 63 [...] with BMI of 51.02. Patient presented [facility] from [facility] ER for possible heart catheterization. Patient presented to the [facility] ER on 05/10 with complaints of gradually progressive shortness of breath for 1-2 weeks. Patient endorsed exertional shortness of breath and weight gain of 4 at least 10 pounds. Endorsed bilateral lower extremity edema for the past few weeks. Workup at [facility] demonstrated elevated BNP, elevated troponin and EKG showing NSTEMI. Patient was admitted to the ICU at [facility] overnight and was placed on heparin [...] Unstable angina (CMS/HCC) Coronary artery disease involving selawik coronary artery of [place] heart without angina pectoris Multi-vessel coronary artery [...] Hyperlipidemia Hypertension unknown, ok now Pulmonary embolism ([facility]/HCC) Family History Problem Relation Name Age of [...] Autoimmune disease Nephew Sudden (more content not included)...[facility] 06-29-2024 NoteUT Electrophysiology Consult Note [place] [facility] Reason for visit: Palpitations HPI: Ruma [...] Year: No Utilities: Not At Risk (05/11/2024) [facility] Utilities Threatened with loss of utilities: [...] XR (Effoxor-XR) 150 mg (more content not included)...[facility]03-05-2025 NoteCardiovascular Medicine [facility] SUBJECTIVE Chief Complaint Patient presents with [...] with BMI of 51.02. Patient presented to [facility] from [facility] ER for possible heart catheterization. Patient presented to the [facility] ER on 05/10 with complaints of gradually progressive shortness of breath for 1-2 weeks. Patient endorsed exertional shortness of breath and weight gain of 4 at least 10 pounds. Endorsed bilateral lower extremity edema for the past few weeks. Workup at [facility] demonstrated elevated BNP, elevated troponin and [...] Active Problem List Diagnosis Primary pulmonary hypertension ([facility]/HCC) Chronic pulmonary heart disease ([facility]/HCC) Benign essential hypertension Chest pain Dyspnea Infarction of lung due to iatrogenic pulmonary embolism (CMS/HCC) Morbid obesity ([facility]/HCC) Obstructive sleep apnea syndrome Palpitations Pulmonary embolism ([facility]/HCC) Supraventricular tachycardia POTS (postural orthostatic tachycardia syndrome) Autonomic neuropathy Rheumatoid arthritis ([facility]/HCC) Diabetes mellitus type II, non insulin dependent ([facility]/HCC) LOPEZ (dyspnea on exertion) Unstable angina ([facility]) Coronary artery disease involving selawik coronary artery of [place] heart without angina pectoris Multi-vessel coronary artery stenosis Multiple vessel coronary artery disease Status post four vessel coronary artery bypass Anxiety Insomnia Acute on chronic congestive heart failure, unspecified heart failure type ([facility]/HCC) NSTEMI (non-ST elevated myocardial infarction) ([facility]) Fluid overload Hypothyroidism Mood disorder Past Medical History: Diagnosis Date Abnormal ECG Arrhythmia Atrial fibrillation ([facility]/HCC) CHF (congestive heart failure) ([facility]) Coronary artery disease Diabetes mellitus ([facility]/HCC) approx 2019 Disease of thyroid gland august 2023 Hyperlipidemia Hypertension unknown, ok now Pulmonary embolism ([facility]) Family History Problem Relation Name Age of [...] Other Sulfa (Sulfonamide Antibiotics) (more content not included)...[facility]03-05-2025 NotePatient here for 1 week follow [...] sleepiness. All other systems reviewed and are negative.[facility] 05-20-2024 NotePatient here for follow up [facility]. She was started on Entresto and Farxiga. Atorvastatin was stopped and she isn't sure why. C/o SOB and palpitations with exertion. Denies chest pain, lightheadedness/syncope, and bleeding on Xarelto. Review of Systems Cardiovascular: Positive for dyspnea on exertion, leg swelling (L > R) and palpitations (with exertion). Respiratory: Positive for cough. Musculoskeletal: Positive for muscle weakness. All other systems reviewed and are negative.[facility] 05-20-2024 NoteCardiovascular Medicine [facility] SUBJECTIVE Chief Complaint Patient presents with [...] with BMI of 51.02. Patient presented to [facility] from [facility] ER for possible heart catheterization. Patient presented to the [facility] ER on 05/10 with complaints of gradually progressive shortness of breath for 1-2 weeks. Patient endorsed exertional shortness of breath and weight gain of 4 at least 10 pounds. Endorsed bilateral lower extremity edema for the past few weeks. Workup at [facility] demonstrated elevated BNP, elevated troponin and EKG showing NSTEMI. Patient was admitted to the ICU at [facility] overnight and was placed on heparin [...] Unstable angina (CMS/HCC) Coronary artery disease involving selawik coronary artery of [place] heart without angina pectoris Multi-vessel coronary artery [...] tablet, Rfl: 3 baltazar (more content not included)...[facility] [facility] NoteHospital Medicine Discharge Summary Final Discharge [...] with BMI of 51.02. Patient presented to [facility] from [facility] ER on 05/10 for possible heart catheterization. Patient was complaining of gradually progressive shortness of breath for 1-2 weeks. Patient endorsed exertional shortness of breath and weight gain of 4 at least 10 pounds. Also she endorsed bilateral lower extremity edema for the past few weeks. Workup at [facility] demonstrated elevated BNP, elevated troponin and EKG showing NSTEMI. Patient was admitted to the ICU at [facility] overnight and was placed on heparin [...] None Consultations During Admission: Cardiology Dear Dr. Chaparro MD, Ruma is advised to follow up with you within 1-2 weeks. Items to follow up in ambulatory setting: None Follow-up with: Cardiology Scheduled appointments: Future Appointments Date Time Provider Department Center 05/20/2024 10:20 AM Darryl Pedraza CNP [facility] Your medication list START taking these medications [...] Your Medications These medications were sent to [facility]/pharmacy [address] [place] [address] AT [address] [place] [address] dapagliflozin propanediol 10 mg metoprolol succinate XL [...] g/dL 14.6 13.6 - (more content not included)...[facility]02-21-2025 NoteAttempted to delete note. Left incomplete. [facility]02-20-2025 NoteHospital Medicine Daily Progress Note - 05/13/2024 12:47 PM; Room: [address] [place] [address] Admission: 05/11/2024 10:01 PM; Length of stay: 2 days THE HOSPITALIST TEAM PREFERS TO USE VuCOMP FOR NON-URGENT COMMUNICATION 7AM-7PM. IF I DO NOT RESPOND WITHIN 20 MINUTES OR URGENT MATTERS, PLEASE CALL THROUGH THE APPOINTMENT SPECIALIST. FROM 7PM-7AM, PLEASE PAGE [phone](COVR). Code Status: Full Code Barriers to Discharge: [...] Diabetes mellitus type II, non insulin dependent ([facility]) Coronary artery disease of [place] artery of [place] heart with stable angina pectoris Status post [...] Date TSH 5.49 11/23 (more content not included)...[facility] 05-13-2024 NoteCardiology Progress Note Reason for Consult: HF exacerbation HPI: Ruma Carlton is a 63 y.o. female with a past medical history significant for chronic congestive diastolic heart failure, coronary heart disease status post CABG x 3 on November 2023, hypothyroidism, paroxysmal atrial fibrillation, type 2 diabetes mellitus, hyperlipidemia, nicotine dependence, morbid obesity with BMI of 51.02. Patient presented to [facility] from [facility] ER for possible heart catheterization. Patient presented to the [facility] ER on 05/10 with complaints of gradually progressive shortness of breath for 1-2 weeks. Patient endorsed exertional shortness of breath and weight gain of 4 at least 10 pounds. Endorsed bilateral lower extremity edema for the past few weeks. Workup at [facility] demonstrated elevated BNP, elevated troponin and EKG showing NSTEMI. Patient was admitted to the ICU at [facility] overnight and was placed on heparin [...] Value Ventricular Rate 105 Atrial Rate 120 WA Interval 200 QRS DURATION 90 QT Interval 368 QTC CALCULATION(BAZETT) 486 P Clothier 70 R-Clothier 99 T Wave Clothier 83 Impression Sinus tachycardia Possible Right ventricular hypertrophy Nonspecific ST abnormality Abnormal ECG When compared with ECG of 15-DEC-2023 18:05, Sinus rhythm has replaced Junctional rhythm Criteria for Septa (more content not included)...[facility] 05-12-2024 NoteHospital Medicine Daily Progress Note - 05/12/2024 1:47 PM; Room: [address] [place] [address] Admission: 05/11/2024 10:01 PM; Length of stay: 1 days THE HOSPITALIST TEAM PREFERS TO USE [employer] CHAT FOR NON-URGENT COMMUNICATION 7AM-7PM. IF I DO NOT RESPOND WITHIN 20 MINUTES OR URGENT MATTERS, PLEASE CALL THROUGH THE APPOINTMENT SPECIALIST. FROM 7PM-7AM, PLEASE PAGE [phone](COVR). Code Status: Full Code Barriers to Discharge: [...] Principal Problem: NSTEMI (non-ST elevated myocardial infarction) ([facility]) Active Problems: Benign essential hypertension Obstructive sleep apnea syndrome Diabetes mellitus type II, non insulin dependent ([facility]) Coronary artery disease of [place] artery of [place] heart with stable angina pectoris Status post four vessel coronary artery bypass Acute on chronic congestive heart failure, unspecified heart failure type ([facility]) Fluid overload Hypothyroidism LOPEZ (dyspnea on exertion) [...] of 15-DEC-2023 18:05, S (more content not included)...[facility]02-19-2025 NotePt admitted to hospital for NSTEMI. Pt has echo scheduled. I will wait for current echo results to determine pt's eligibility to participate in cardiac rehab (CR) therapy with HF diagnosis. Pt is eligible with NSTEMI dx pending appropriate referral. I will watch for updates and follow up with pt, if appropriate. ELIZABETH Kate relay telegrapher Outpatient Coordinator Cardiopulmonary RehabUnMercy [facility] St[facility]02-19-2025 NoteCase was discussed with the ADEBAYO on 05/11/2024. I agree with the history, physical, assessment, and plan of care. I discussed the findings and therapeutic plan. I agree with the documentation, except for any updates below. Rao Foster MDUnMercy Health St. Charles Hospital02-19-2025 NoteCXR negative for any evidence of [...] telemetry N.p.o. at midnight pending potential heart cathUnMercy Health St. Charles Hospital02-19-2025 NotePer primary team to consider addition of CPAP/BiPAP nightly [facility]02-19-2025 NoteContinue with home medication, levothyroxine 50 mcg tablet p.o. dailyUnMercy Health St. Charles Hospital 05-12-2024 NoteContinue diuresis as above Supplemental O2 at 2-4 L/min via nasal cannula as neededUnMercy Health St. Charles [facility]02-19-2025 NoteInsulin lispro per sliding scale before meals and at bedtime. Continue home medication Januvia 100 mg p.o. dailyUnMadison Health Medical [id number] NoteHospital Medicine History and Physical 05/12/2024 3:03 AM THE HOSPITALIST TEAM PREFERS TO USE Spine Wave CHAT FOR NON-URGENT COMMUNICATION 7AM-7PM. IF I DO NOT RESPOND WITHIN 20 MINUTES OR URGENT MATTERS, PLEASE CALL THROUGH THE APPOINTMENT SPECIALIST. FROM 7PM-7AM, PLEASE PAGE [phone](COVR). Chief Complaint Shortness of breath Worsening X1 week History of Present Illness Ruma Carlton is an 63 y.o. female with past medical history including, but not limited to acute on chronic diastolic congestive heart failure, atherosclerotic heart disease of [place] coronary artery, hypothyroidism, paroxysmal atrial fibrillation, DM 2, HLD, nicotine dependence, and morbid (severe) obesity. Who came from [facility] ER per recommendation of their cardiology department for heart cath. Patient had presented to [facility] ER yesterday with complaint of SOB worsening X1-2 weeks becoming disablingly short of breath earlier today. Patient also reports progressive dyspnea on exertion in addition to weight gain of 10 pounds and bilateral lower extremity edema for the past few weeks. Workup at [facility] showed indications of acute on chronic diastolic heart failure with fluid overload, elevated BN P, elevated and increasing troponin, and ECG showing NSTEMI. Patient was admitted to ICU at [facility] overnight and was placed on a heparin [...] patient diuresed with IV Lasix while at [facility]. Upon arrival here, patient alert and oriented [...] myocardial infarction) (CMS/HCC) Coronary artery disease of [place] artery of [place] heart with stable angina pectoris Status post four vessel coronary artery bypass Benign essential hypertension CXR negative for any evidence of acute cardiopulmonary process. Mild cardiomegaly noted. BNP elevated 537 Trace to+1 pitting edema BLE No supplemental O2 use, on room air Continue diuresis with Lasix 40 mg p.o. daily ECG showing sinus tachycardia with possible right ventricula (more content not included)...[facility]11-14-2024 NoteUT CARDIOLOGY CLINIC PROGRESS NOTE Reason [...] 104 QT Interval 420 QTC CALCULATION(BAZETT) 496 R-Clothier 96 T Wave Clothier 179 Impression Accelerated Junctional rhythm Right axis deviation Incomplete right bundle branch block Septal infarct , age undetermined Marked T wave abnormality, consider anterolateral ischemia Abnormal ECG When (more content not included)...[facility]11-21-2023 Evaluation note* Encounter Date Diagnosis Assessment Notes Treatment Notes Treatment Clinical Notes Jan, Acute pain of right hip (ICD-10 - M25.551) [email or web address] Other 10-06-2023 Evaluation note* Encounter Date Diagnosis [...] monitor results and followup in 3-4 weeks. [email or web address] Other 10-04-2023 Evaluation note* Encounter Date Diagnosis Assessment Notes Treatment Notes Treatment Clinical Notes Dec, Depressive disorder (ICD-10 - F3 2.A) [email or web address] Other 10-03-2023 History and physical note Author Froilan Brown [facility] December 24, 2022 4:06amNote Date/TimeOct2022 3:58[place] [address] Hospitalist H&P Signed Patient: Ruma Carlton MR#: [id number] : 1960 Acct:[id number] Age/Sex: 62 / F Adm Date: 3 Loc: Room: [address] [place] [address] Type: ADM IN Attending Dr: Froilan Brown MD Copies to: MD Anibal Mosquera MD~ HPI DATE OF EXAMINATION: 12/24/22 CHIEF COMPLAINT: fall HISTORY OF PRESENT ILLNESS: The patient is a 62 year old woman with a history of HTN, DVT/PE on xarelto, POTS, NIDDM2, paroxysmal SVT who presented to [facility] ED after a fall. Per the patient [...] got up from sleeping to walk to [facility] and fell- pt reports she felt wobbly after taking the flexeril. shedid not lose consciousness or feel dizzy and denies any chest pain or shortness of breath. Pt's right hip pain worsened over the course of Friday so she went to [facility] ER for evaluation on arrival there vital [...] feels improved after she got tylenol at [facility]- the patient is somewhat irritated at being [...] were negative except as noted in the [facility] Medical History Apnea Arthritis Back pain [...] thrombosis): (5) Hyponatremia: Plan: mild (126 at [facility])- ?medication related Plan - admit to medicine - monitor on telemetry - restart home medications - will check STAT troponin now. if it is markedly increased compared to at [facility], would ask cardiology to see pt. if [...] 1 Documented By: Froilan Brown MD 12/24/22 0353 Signed By: <Electronically signed by Froilan Brown MD> 12/24/22 0406 [facility] Work Phone: [phone]) 988-936209-29-2023 Evaluation note* Encounter Date Diagnosis Assessment Notes Treatment Notes Treatment Clinical Notes Nov, Depressive disorder (ICD-10 - F3 2.A) [email or web address] Other 08-25-2023 Evaluation note* Encounter Date Diagnosis Assessment Notes Treatment Notes Treatment Clinical Notes Oct, Depressive disorder (ICD-10 - F3 2.A) Mood improved. 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 She hasn't rec'd the midodrine yet, but will start it and followup w [facility] cardio [facility] [employer] Other 06-22-2023 Evaluation note* Encounter Date Diagnosis [...] the past (years ago). Requests a refill. [email or web address] Other 02-06-2023 Evaluation note* Encounter Date Diagnosis [...] ENT eval if area does not resolve. [email or web address] Other 02-06-2023 Evaluation note* Encounter Date Diagnosis Assessment Notes Treatment Notes Treatment Clinical Notes Apr, Lumbar pain (ICD-10 - M54.50) [email or web address] Other Evaluation + Plan note No data available for this section [facility] Future Appointments Appointment Date:06/04/2023 01:30:00 PM Scheduled Provider: Location:[facility] Appointment Type:DM Diabetes Initial program officer 61 (F [facility]Evaluation noteNo Assessments Information Available [facility]Evaluation noteNo InformationNortSelect Specialty Hospital [facility] [employer] Other Evaluation note* Diagnosis Onset Date Resolution Status Elevated troponin acuteFallacuteHyponatremiaacutePersonal history of DVT (deep vein thrombosis) acuteRight hip painacute [facility] Work Phone: Evaluation noteNo assessment information available [facility] Work Phone: Evaluation note* Diagnosis Onset Date Resolution Status Anxiety acuteBilateral primary osteoarthritis of kneeacuteDepressionacuteRight hip pain acute [facility] Work Phone: Evaluation note* Diagnosis Onset Date Resolution Status Abnormal TSH acuteArthritis, rheumatoidacuteLower extremity edemaacuteUrinary frequencyacute [facility] Work Phone: Evaluation note* Diagnosis Onset Date Resolution Status Abnormal TSH acuteArthritis, rheumatoidacuteLower extremity edemaacuteUrinary frequencyacute Abnormal TSHacuteDiabetes mellitus, type 2acuteHypertensionacute [facility] Work Phone: Evaluation note* Diagnosis Onset Date Resolution Status Abnormal TSH acuteArthritis, rheumatoidacuteLower extremity edemaacuteUrinary frequencyacute Abnormal TSHacuteArthritis, rheumatoidacuteDiabetes mellitus, type 2acute Hypertensionacute [facility] Work Phone: evaluation note* Diagnosis Onset Date Resolution Status Abnormal TSH acuteArthritis, rheumatoidacuteDiabetes mellitus, type 2acuteHypertensionacute [facility] Work Phone: evaluation note* Diagnosis Onset Date Resolution Status Admit Date Abnormal TSH acuteSept2024 11:25amScreening mammogram for breast canceracute December 21, 2024 11:25am [facility] Work Phone: History general Narrative - [...] History back surgerySurgical Historyright hand trigger fingers [id number]/2022 Hospitalization Historysee above [email or web address] Other Hisdxfj general Narrative - Reported* Type Description Date [...] HistoryhysterectomySurgical Historyback surgerySurgical Historyright hand trigger fingers /2022Hospitalization Historysee above [email or web address] Other Hospital Discharge instructions No data available for this section [facility] No data available for this section [facility] note Author Petr Kowalski [facility] December 24, 2022 11:58amNote Date/TimeOct2022 11:58[place] [address] Hospitalist Progress Note Signed Patient: Ruma Carlton MR#: [id number] : 1960 Acct:[id number] Age/Sex: 62 / F Adm Date: 3 Loc: Room: [address] [place] [address] Type: ADM INOo Attending Dr: Petr Kowalski MD Copies to: ~ Date of Service: 12/24/2022 Subjective Subjective Narrative: The patient is a 62 year old woman with a history of HTN, DVT/PE on xarelto, POTS, NIDDM2, paroxysmal SVT who presented to [facility] ED after a fall. Per the patient [...] got up from sleeping to walk to [facility] and fell- pt reports she felt wobbly after taking the flexeril. shedid not lose consciousness or feel dizzy and denies any chest pain or shortness of breath. Pt's right hip pain worsened over the course of Friday so she went to [facility] ER for evaluation On arrival there vital [...] feels improved after she got Tylenol at [facility]- the patient is somewhat irritated at being [...] to the fall. Her CT head at [facility] wasunremarkable for ICH patient remained stable here [...] 08:59 50 mg DAILY SANAZ Administration Pyridostigmine [place] 120 mg 12/24/22 09:00 12/24/22 08:36 Pyridostigmine [place] 60 Mg Tablet PO 12/24/23 08:59 120 [...] thrombosis): (5) Hyponatremia: Plan: mild (126 at [facility])- ?medication related Plan -Repeat Troponin here WNL. Sodium level WNL -CT head done at [facility] with no evidence of intracranial bleed. Patient remained stable with no focal deficits -X-ray of the hip done at [facility] with no evidence of fracture dislocation -Patient [...] signed by Petr Kowalski MD> 12/24/22 1158 [facility] Work Phone: Reason for referral (narrative)No reason for referral information availableGood Samaritan Hospital Work Phone: Summary Purpose Family History [...] R06.9 Amb Documentation CC Adult Risk Stratification [facility]:CABG-HIGH RISKReason for VisitAbnormal TSH Arthritis, rheumatoid Diabetes mellitus, type 2 Hypertension Chief Complaint Admit Date Amb Documentation May 17, 2024 1:57pm [facility]; heart failure-HIGH [...] section and content) DATE CREATED AUTHOR 08/29/2018 [facility] DATE CREATED AUTHOR AUTHOR'S ORGANIZ ATION 03/20/2022 [facility] DATE CREATED AUTHOR AUTHOR'S ORGANIZ ATION 05/29/2022 [facility] DATE CREATED AUTHOR AUTHOR'S ORGANIZ ATION 06/05/2023 [facility] DATE CREATED AUTHOR AUTHOR'S ORGANIZ ATION 08/29/2023 [facility] DATE CREATED AUTHOR AUTHOR'S ORGANIZ ATION 01/12/2025 [facility] DATE CREATED AUTHOR AUTHOR'S ORGANIZ ATION 01/17/2025 [facility] Patient Care team informatio n (unrecognized [...] Care Provider Active Start: September 07, 2023 Mcihael T Toby , MDAttending ProviderActiveStart: September 07, [...] Start: February 25, 2023 End: February 25, 2023[facility] CommunityAttending ProviderActiveStart: February 25, 2023 End: [...] 2023 Team Status: Active Member Role Status Elodia Chaudhary MD Primary [...] BE BASED ON THE PRIMARY CLINICAL RECORDS. [employer] [facility]. provides no warranty or guarantee of the accuracy or completeness of information in this document.
--- OUTSIDE RECORDS SUMMARY | 2025-01-27 21:01 | XMS_ITS | Clinical Summary ---
Author Organization [facility] Address [address] [place] [address] Care Team Providers Care Policy Loan Calculator Name Role Phone Merissa Mayfield MD Primary Care Provider [phone] Allergies Active AllergyReactionsCriticalityNoted WbjgOlgdqkymLbcegamDhssx59/19/2014 KbqfozzzpvdrtvYqronnb16/21/2010 Other Reaction(s): Intolerance, involuntary movements, other Metoclopramide DilXgqzf00/19/2014Sulfa (Sulfonamide Antibiotics)Other03/11/2014 Medications MedicationSigDispense QuantityRefillsLast FilledStart DateEnd [...] by mouth in the morning. 90 tablet 304/879364/6Active mirtazapine (Remeron) 15 mg tablet Pt not noestk29Discontinued(Med List Cleanup) fluticasone furoate-vilanteroL (Breo Ellipta) 100-25 [...] on diagnostic imaging of heart and coronary goswbygcild84/22/2025bnormal stress test07/06/2024oronary artery mujgdhl7407/06/2024Mood /27/2025 Rbejzsfvpulftm64/19/2025 Assessment & Plan (05/12/2024 3:04 AM EST): Continue with home medication, levothyroxine 50 mcg tablet p.o. daily Rbbmjhb3705/11/20243446Zpiwwivb27/18/2025ute on chronic congestive heart failure, unspecified heart failure type05/11/2024NSTEMI (non-ST elevated myocardial infarction)05/11/2024Fluid tjzgenps80/18/2025Status post four vessel coronary artery gtfbcb0412/15/2023Multiple vessel coronary artery jyoqmbo8812/10/2023Multi- vessel coronary artery /16/2024oronary artery disease involving [place] coronary artery of [place] heart without angina /14/2024Unstable grzpum3212/05/2023iabetes mellitus type II, non insulin /11/2024 Assessment & Plan (05/12/2024 3:04 AM EST): [...] to medications/ or contrast, stroke, . 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 Will increase pyridostigmine to 120 mg qid, continue adequate hydration, additional salt to diet. Monitor b/p and SBP 140-150 is ok with known POTS. Chest pain01/22/2022 Assessment & Plan (12/04/2023 4:11 PM EDT): Chest tightness and LOPEZ will plan for cardiac cath in light of severe coronary calcifications noted, DM, HTN, HPL, abnormal ECG Cxtkdzniwxio04/01/2022ulmonary nfuqcmrk75/01/2022upraventricular tachycardia 01/22/2022 Assessment & Plan (09/11/2022 9:41 AM EDT): Stable- continue toprol Primary pulmonary fdygjelnhczy78/18/2014 Assessment & Plan (09/11/2022 9:40 AM EDT): Reports continued LOPEZ Will repeat echocardiogram to assess cardiac function and rt sided pressures Chronic pulmonary heart frnejkw5904/14/2013Morbid jdnohuv2104/14/2013 Assessment & Plan (12/04/2023 4:01 PM EDT): Managed per PCP Recommended weight loss Obstructive sleep apnea odqemrop29/22/2014 Assessment & Plan (05/12/2024 3:04 AM EST): Per primary team to consider addition of CPAP/BiPAP nightly Benign essential caxwmsssyxoc30/19/2014 Assessment & Plan (05/12/2024 3:07 AM EST): [...] AM EDT): Hypertension is stable Continue toprol Mtitgxe6504/11/2013 Assessment & Plan (09/11/2022 9:42 AM EDT): Continued LOPEZ will repeat echocardiogram to assess rt sided pressures, recommended pt to quit smoking. Infarction of lung due to iatrogenic pulmonary /19/2014 Encounters DateTypeDepartmentCare NliiMkglzjpphyk73/27/2025 8:30 AM EDT - 01/17/2025 8:50 AM EDTSurgery [facility] [address] [place] [address] Konrad Campoverde MD Loop insertion [80929 (CPT??)]01/17/2025 6:50 AM EDT - 01/17/2025 9:52 AM EDT Hospital Encounter [facility] [address] [place] [address] Konrad Campoverde MD Palpitations Discharge Disposition: Home or Self Care (01)01/17/20255387Mymfeb40/20/2025Travel 12/29/2024Telephone [facility] [address] [place] [address] Stacy Singh MA 12/29/2024Orders Only [address] [place] [address] Stacy Singh MA Bilateral lower extremity edema (Primary Dx); Dyspnea on ipisgmqi67/23/2025 1:00 PM EDTOffice Visit [facility] [address] [place] [address] Konrad Campoverde MD Palpitations (Primary Dx)12/14/2024Orders Only [facility] [address] [place] [address] Emerita Ramos MA Palpitations (Primary Dx)12/13/2024Orders Only [facility] [address] [place] [address] Emerita Ramos MA Abnormal PFT (Primary Dx)12/02/2024Telephone [facility] [address] [place] [address] Stacy Singh MA 12/01/2024Orders Only [address] [place] [address] ProviderMassimo MD 11/03/2024Orders Only [facility] [address] [place] [address] Leslye Hickman LPN NSTEMI (non-ST [...] AliveSister Social History Tobacco UseTypesPacks/DayYears UsedDateSmoking Tobacco: BfybvjDpcemrpznv315 Smokeless Tobacco: Never Tobacco Cessation:Counseling Given: Not Answered Alcohol UseStandard Drinks/WeekCommentsYes0 (1 standard drink = 0.6 oz pure alcohol)maybe every 2 or 3 months I have one [facility] UtilitiesAnswerDate RecordedIn the past 12 months [...] care, and heating?Somewhat hard05/11/2024PHQ-2AnswerDate RecordedPatient Health Questionnaire-2 Vekvq999UT Safety & EnvironmentAnswerDate RecordedWithin the last year, [...] or living in a senior living (including now)?No05/11/2024Hunger Vital SignAnswerDate RecordedWithin the past 12 months, you worried that your food would run out before you got the money to buymore.Never true05/11/2024Ran Out of Food in the Last YearNot on file05/11/2024CommentsNoSex and Gender InformationValue Date RecordedSex Assigned at ZxqtbFxcmks59/19/2025 3:28 PM EDTLegal SexFemale 09/19/2021 11:12 PM EDTGender NziwoqetZjaodc35/ 3:28 PM EDTSexual OrientationHeterosexual or Rutaamxt66/19/2025 3:28 PM EDT Last Filed Vital Signs Vital SignReadingTime TakenCommentsBlood Jjeanlfo276/6001/17/2025 9:35 AM EDT Cyxfm064001/17/2025 9:35 AM DZITzhsaeaugmo13.3 ??C (97.4 ??F)05/14/2024 3:26 PM ESTRespiratory Ocsy2776 9:35 AM EDTOxygen Loiatedgqj297%01/17/2025 9:35 AM EDTInhaled Oxygen Concentration--Bzpccl391 kg (241 lb)01/17/2025 7:08 AM EDT Tfnbgl097.9 cm (5' 1 )01/17/2025 7:08 AM EDTBody Mass Index45.5401/17/2025 7:08 AM EDT Plan of Treatment Health MaintenanceDue DateLast DoneCommentsCT Jtgdffzlmjcg13/15/1962Colonoscopy 2Colorectal Cancer Aswgazqcf39/15/1962FIT-DNA1961FIT1961 FOBT4626Bikdmuohyxbni32/15/1962Diabetes: Retinopathy Vwarzxtlm18/15/1972 Depression Ioqqkfzii63/15/1974Diabetes: Urine Protein Togdxzlsx51/15/1981 Pneumococcal Vaccine: Pediatrics (0 to 5 Years) and At-Risk Patients (6 to 64 Years) (1 of 2 - PCV)1980Pap Smear1982Adult Maforsa0011/06/1983 Cervical Cancer Zelpndsaq55/15/1992HPV/Aewakg4011/06/19914735Pzbykokra01/15/2002Zoster Vaccines (1 of 2)11/06/2011Diabetes: Hemoglobin A1C12/14/316594//4COVID-19 Vaccine (3 - 2024- season)502/, 05/17/2020, 04/26/2020, [...] Expiration DateModel / Serial / LotClosure,Flx,Watchman,Michelle,35mm - [id number] Implanted:Qty: 1 on 12/15/2023 by [facility]Device[facility]: [facility] Pkktwdfyyq04/01/[id number] / / [id number]:Left atrial appendage clippingStent,Synergy Mr 2.50 X 24 - [id number] - [id number] Implanted:Qty: 1 on 07/21/2024 by Benito Bull MD at [facility] SystemDrug Eluting StentRight: HeartNorwood WebinarHero [id number] / [id number] / [id number],Cardiac,Lux,Dxii+[facility] - [id number] - [id number] Implanted:Qty: 1 on 01/17/2025 by Konrad [facility]overde MD at [facility] SystemImplantable Loop RecorderN/A: CDB [employer]05/07/2026M312 / [id number] / V Plate 4 Holes Implanted:Qty: 1 on 12/15/2023 by Woody [facility]arkar MD at [facility] SystemN/A: [id number] / / 16mm Screw Gold Implanted:Qty: 4 on 12/15/2023 by Woody [facility]arkar MD at [facility] SystemN/A: [id number] / / Procedures Procedure NamePriorityDate/TimeAssociated DiagnosisCommentsLOOP INSERTIONRoutine [...] the sternum on the left using the [employer] tool. The loop recorder was then injected [...] Konrad Campoverde MD Cardiac Electrophysiology. PULMONARY FUNCTION SOTVBTZFirgqym33/05/2025 2:15 PM EDTHEMOGLOBIN X7UJjl-Ih 12/06/2023 6:18 AM EDT from Last 3 Months or Most Recently Relevant to Health Maintenance Results * Pulmonary function testing (11/26/2024 2:15 PM EDT)Anatomical RegionLaterality ModalityOther Narrative Authorizing ProviderResult TypeResult StatusHistorical Provider MDPFT ORDERABLES Final Result * Hemoglobin A1c (12/06/2023 6:18 AM EDT)ComponentValueRef RangeTest Method Analysis TimePerformed AtPathologist SignatureHemoglobin A1C5.84.0 - 6.0 % 12/07/2023 10:38 AM [facility] ([place])Estimated Average Wkqjimb840 mg/dL12/07/2023 10:38 AM [facility] ([place])Specimen (Source) Anatomical Location / LateralityCollection Method / VolumeCollection Time Received TimeBloodVenous blood specimen / UnknownArterial Line / Unknown 12/06/2023 6:18 AM EDT12/06/2023 7:06 AM EDT Narrative Authorizing ProviderResult TypeResult StatusAnanda Power CNPLAB BLOOD ORDERABLESFinal ResultPerforming OrganizationAddressCity/State/ZIP CodePhone Number [facility] ([place]) [address] [place] [address] from Last 3 Months or Most Recently Relevant to Health Maintenance Insurance Advance Directives * Full Code (Latest Code Status on File) Date ActivatedDate InactivatedComments07/21/2024 2:29 PM07/21/2024 8:36 PM * Full Code Date ActivatedDate InactivatedComments05/11/2024 10:28 PM2 5:54 PM * Full Code Date ActivatedDate DxqrtezjrziLdpjetta31/4/2024 3:53 PM10 5:46 PM * Full Code Date ActivatedDate InactivatedComments12/05/2023 5:22 PM12/08/2023 3:54 PM * Full Code Date ActivatedDate InactivatedComments12/05/2023 3:56 PM12/05/2023 5:22 PM Care Teams Team MemberRelationshipSpecialtyStart DateEnd Date Merissa Mayfield MD [address] [place] [address] #[facility] - Ohqzvco47/1/22
--- OUTSIDE RECORDS SUMMARY | 2025-01-27 21:01 | XMS_ITS | Encounter Summary ---
Author Organization [facility] Address [address] [place] [address] Care Team Providers Care Electrical Tester Name Role Phone Merissa Mayfield MD Primary Care Provider [phone] Encounter Details DateTypeDepartmentCare Team (Latest Contact Info)Ffutpnfvage34/07/2024Clinisync Result Encounter [facility] Unsolicited Dhruv Cuellar, DO [address] [place] [place], [place] [id number] Social History Tobacco UseTypesPacks/DayYears UsedDateSmoking Tobacco: Every DayCigarettes Alcohol UseStandard Drinks/WeekCommentsNever0 (1 standard drink = 0.6 oz pure alcohol)CommentsUnknownSex and Gender InformationValueDate RecordedSex Assigned at BirthNot on fileLegal LbcAmmmly42/01/2023 8:35 PM EDTGender Identity Not on fileSexual [...]
--- OUTSIDE RECORDS SUMMARY | 2025-01-27 21:01 | XMS_ITS | Patient Health Record ---
Author Organization [facility] Address [address] [place] [address] Care Team Providers Care Rn International Name Role Phone Pam Wagoner Primary Care Provider Kelsey Granado Unavailable [phone] Allergies Allergen (clinical drug ingredient) Drug/Non Drug [...] MG Tablet1 tablet Orally twice a dayActivepyRIDostigmine [place] 60 MG Tablet1 tablet Orally two tabletsActiveDoxepin [...] hurting yourself in some wayNot at allTotal Bpzxp66YihzctcawrngmEqfhvrhj DepressionDrug/Alcohol:Social InfoQuestionAnswerNotesAUDIT-C (Standard)Did you have a drink [...] in the past year?Monthly or less (1 point)Pxslbv1CtilymqihzvnrfIljrnxocRWLG-90 (2020 Edition)1. Have you used drugs other [...] Status W/U Status Risk Notes Problem Anxiety (81750269) Anxiety (F41.9) ActiveconfirmedProblemBody mass index 40+ - severely obese (363203523)BMI 45.0- 49.9, adult (Z68.42)ActiveconfirmedProblemMood disorder (20400054)Mood disorder (F39)ActiveconfirmedProblemBody mass index 40+ - morbidly obese (000673858)BMI 40.0-44.9, adult (Z68.41)ActiveconfirmedProblemInsomnia (170758598)Insomnia disorder with non-sleep disorder mental comorbidity (G47.00)Activeconfirmed Vital Signs Heart Rate 78 /min 01/03/2025 Hnhoajss25 %01/03/2025lood pressure obswotibu31 mm Hg01/03/20253272Efuoby71.5 in 01/03/2025lood pressure pnmcinmd701 mm Hg01/03/20250642Aymxpg161.0 lbs10MI 44.79 kg/m201/03/2025 Encounters Encounter Location Date Provider Diagnosis [facility] [address] [facility] [place] [address] 12/06/2024 Kelsey Neuberger Mood disorder F39 ; Anxiety F41.9 and 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 [facility] [address] [place] [address] 01/03/2025 Kelsey Neuberger Mood disorder F39 ; Anxiety F41.9 and 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 [facility] [address] [facility] [place] [address] 02/26/2024 Pam Wagoner Mood disorder F39 ; 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 and Anxiety F41.9 [facility] [address] [facility] [place] [address] 06/23/2024 Pam Wagoner Mood disorder F39 ; Anxiety F41.9 and 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 [facility] [address] [place] [address] 02/10/2024 Pam Wagoner Mood disorder 9 [facility] [address] [place] [address] 03/30/2024 Pam W[facility]er [facility] [address] [place] [address]/30/2025 Pam CoxMood disorder [address] [place] [address]/5Christy [facility] [address] [place] [address]/hristy CoxMood disorder [address] [place] [address]/31/2025hristy CoxMood disorder [address] [place] [address]/13/2025hristy CoxMood disorder [address] [place] [address]/5Christy CoxMood disorder [facility] [address] [place] [address]/5Christy Wagoner Mood disorder X67[facility]bk[facility] [place] [address]/Leslie NeubergerMood disorder F39 Assessments Encounter Date Diagnosis (ICD Code) Assessment [...] (ICD-10 - F39)06/03/2024Mood disorder (ICD-10 - F39) 06/23/2024nxiety (ICD-10 - F41.9)12/06/2024Mood disorder (ICD-10 - F39) 01/03/2025Mood disorder (ICD-10 - F39)01/03/2025nxiety (ICD-10 - F41.9) 12/06/2024nxiety (ICD-10 - F41.9)4Anxiety (ICD-10 - F41.9)06/23/2024 Insomnia disorder with non-sleep disorder mental comorbidity (ICD-10 - G47.00) 01/03/2025Insomnia disorder with non-sleep disorder mental comorbidity (ICD-10 - G47.00)12/06/2024Insomnia disorder with non-sleep disorder mental comorbidity (ICD-10 - G47.00) Plan Of Treatment Next Appt Details Provider Name:Kelsey Cook arvind, 02/03/2025 11:45:00 AM, [address] [place], [address], Insurance Providers Payer Name Payer Address Payer Phone Subscriber Number Group Number Insured Name Patient Relationship to Insured Coverage Start Date Coverage End Date ANTH Primary [address] [place] [address] [id number] KIMBERLY, NICOLAS Self - patient is the insured 4 4 BH [employer] [place] Medicaid [address] [place] [address] [id number] KIMBERLY, NOLASelf - patient is the [id number] 2024 [facility] [address] [place] [id number], NOLASelf - patient is the [id number] 2024 Medical (General) History Medical History History ICD Code diabetes mallitus rheumatoid arthritisdepressionSVTPOTSSurgical History Surgery Date(Month/Year) hysterectomy, total with bilateral salpi grant-oopherectomy (BSO) 1994 back surgery 2009 hand surgery 03/14 gallbladder 1979 Hospitalization History Reason Date(Month/Year) see surgical
--- OUTSIDE RECORDS SUMMARY | 2025-01-27 21:01 | XMS_ITS | Clinical Summary ---
Author Organization [facility] Address [address] [place] [address] Care Team Providers Care Manufacturing Tech Name Role Phone Merissa Mayfield MD Primary Care Provider [phone] Allergies Active AllergyReactionsCriticalityNoted DateCommentsCodeineOther: See Comments 07/12/2009 severe headaches Metoclopramide BbgWamhrmntkhx66/21/2010Sulfa (Sulfonamide Antibiotics)Itching 08/19/2018 Medications MedicationSigDispense QuantityRefillsLast FilledStart DateEnd DateStatus venlafaxine hcl(EFFEXOR XR 150 MG 24 HR CAP) Take two(2) times daily.ctive hydroxychloroquine (PLAQUENIL) 200 mg tablet Take by mouth twice daily. Active lamoTRIgine (LAMICTAL) 150 mg tablet Take 150 mg by mouth daily at bedtime. Active lisinopril (ZESTRIL, PRINIVIL) 5 mg tablet Take 5 mg by mouth once daily.Active metoprolol succinate ER (TOPROL XL) 100 mg Tb24 Take by mouth once daily. Active warfarin (COUMADIN) 5 mg tablet Take 10 mg by mouth daily as directed. Active Omeprazole 40 mg capsule Take 40 mg by mouth once daily.Active Family History Medical HistoryRelationCommentsBreast CancerMotherRelationStatusCommentsMother Social History Tobacco UseTypesPacks/DayYears UsedDateSmoking Tobacco: Every DayCigarettes Alcohol UseStandard Drinks/WeekCommentsNot Asked0 (1 standard drink = 0.6 oz pure alcohol)CommentsNoSex and Gender InformationValueDate RecordedSex Assigned at BirthNot on fileLegal ImqFqbhbp70/02/2012 8:28 AM ESTGender Identity Not on fileSexual OrientationNot on file Last Filed Vital Signs Vital SignReadingTime TakenCommentsBlood Wmoyhxlb779/80008/20/2018 11:03 AM EDT Tgorx470508/20/2018 11:03 AM PFTUbjdschxuvd62 ??C (98.6 ??F)08/20/2018 11:03 AM EDTRespiratory Xmse080608/20/2018 11:03 AM EDTOxygen Nnxelligqu14%08/20/2018 11:03 AM EDTInhaled Oxygen Concentration--Zboiyk701.5 kg (254 lb 9.6 oz)08/20/2018 11:03 AM PSJMqjfvq756 cm (5' 2.99 )08/20/2018 11:03 AM EDTBody Mass Index45.11 08/20/2018 11:03 AM EDT Plan of Treatment Health MaintenanceDue DateLast DoneCommentsAnxiety Ovnzcfzkr31/15/1980Depression Qqkxcsraw76/15/1980HIV Melsejpax44/15/1980DTaP,Tdap,Td Vaccine (1 - Tdap) 1980Cervical Cancer Laxavfzyv66/15/1983Mammogram Srtfszfvd32/15/2002CT Hvjffvxsaonu04/15/2007Cologuard (FIT-DNA)11/05/20069641Nxcecdrpoie72/15/2007 Colorectal Cancer Lbdchnbiq10/15/2007Fecal Occult Blood2006Lipid Screening 11/05/20066805Cjoklcoektzjr71/15/2007Pneumococcal Vaccine: 50+ (1 of 1 - PCV) 11/06/2011Shingrix Vaccine (1 of 2)11/06/2011Diabetes Gkeniuckq68/21/2013 07/12/2009Covid-19 Vaccine (1 - season)2024Influenza Vaccine (#1) 2024RSV Vaccine (1 - 1-dose 75+ series)2036Hepatitis C Screening Zhqjalxyj34/21/2010 Procedures Procedure NamePriorityDate/TimeAssociated DiagnosisCommentsHEP REMOTE PANEL BL Efswuny0507/12/2009 11:16 AM EDT Right Wrist Pain Fibromyalgia Syndrome Hist Of Fatigue COMPREHENSIVE METABOLIC SSQBFOrwtxjd32/21/2010 11:16 AM EDT Right Wrist Pain Fibromyalgia Syndrome Hist Of Depression Fatigue Koilonychia from Last 3 Months or Most Recently Relevant to Health Maintenance Results * (ABNORMAL) HEP REMOTE PANEL BL (07/12/2009 11:16 AM EDT)ComponentValueRef RangeTest MethodAnalysis TimePerformed AtPathologist SignatureHep B Core Ab, TotalNegativeNEGATCTRIHEALTH MAIN LABORATORYHep C Antibody IANegative NEGATCTRIHEALTH MAIN LABORATORYHBsAgNegativeNEGATCMOUNT CAR[facility] SYSTEMAND [facility] MAIN LABORATORYHep B Surface Ab, QualPositive(A)NEGATCTRIHEALTH MAIN LABORATORYComment: These results are consistent with previous exposure and/or immunity to the hepatitis B virus antigen. Specimen (Source)Anatomical Location / LateralityCollection Method / Volume Collection TimeReceived TimeBlood specimen (specimen)BLOOD SPECIMEN / Unknown 07/12/2009 11:16 AM EDT Narrative Authorizing ProviderResult TypeResult StatusFekenny Nayak MDLABORATORYFinal ResultPerforming OrganizationAddressCity/State/ZIP CodePhone Number [facility] [address] [place] [address] * (ABNORMAL) COMP METABOLIC PANEL (07/12/2009 11:16 AM EDT)ComponentValueRef RangeTest MethodAnalysis TimePerformed AtPathologist SignatureProtein, Total 7.56.0 - 8.4 g/dLGRANT HOSPITAL LABORATORYAlbumin4.43.5 - 5.0 g/dL [facility] LABORATORYCalcium9.58.5 - 10.5 mg/dLGRANT HOSPITAL LABORATORYBilirubin, Total0.40.0 - 1.5 mg/dLGRANT HOSPITAL LABORATORYAlkaline Epxxrurhnjq6008 - 150 U/LCMOUNT CARMEL HEALTH SYSTEMAND [facility] LABORATORY EGX835 - 40 U/LCCHILLICOTHE VA MEDICAL [facility]ENTER UKXWHQCGETBgsmesn2181 - 100 mg/dL [facility] PULRSAFPJNXID025 - 25 mg/dLGRANT HOSPITAL LABORATORYCreatinine0.68(L)0.70 - 1.40 mg/dLGRANT HOSPITAL LABORATORY Xwyqrn655992 - 148 mmol/LCTRIHEALTH MAIN LABORATORYPotassium4.13.5 - 5.0 mmol/LCMOUNT CARMEL [facility]ALTH SYSTEMAND [facility] MAIN PYTJUDRRYWIrkliqiy77741 - 110 mmol/LCTRIHEALTH MAIN YYLOQRQRXVMR32640 - 32 mmol/LCTRIHEALTH MAIN LABORATORYAnion Gap90 - 15 mmol/LCTRIHEALTH MAIN YIIPTBLYAZDOZ983 - 45 U/LCTRIHEALTH MAIN LABORATORYeGFR->60[facility] eGFR-All Other Races>60.[facility] LABORATORYComment: eGFR (Estimated GFR) Units of measure: mL/min/1.73 meters squared eGFR is derived from the reexpressed MDRD Study equation using the following parameters: serum creatinine, age, gender and race. The creatinine assay has been calibrated to be traceable to IDMS. An eGFR <60 mL/min/1.73m2 for >3 months is consistent with chronic kidney disease. Refer to KDOQI guidelines for clinical interpretation. Specimen (Source)Anatomical Location / LateralityCollection Method / Volume Collection TimeReceived TimeBlood specimen (specimen)BLOOD SPECIMEN / Unknown 07/12/2009 11:16 AM EDT Narrative Authorizing ProviderResult TypeResult StatusFekenny Nayak MDLABORATORYFinal ResultPerforming OrganizationAddressCity/State/ZIP CodePhone Number [facility] [address] [place] [address] from Last 3 Months or Most Recently Relevant to Health Maintenance Care Teams Team MemberRelationshipSpecialtyStart DateEnd Date Merissa Mayfield MD [address] [place] [address] PCP - General06/20/09
--- OUTSIDE RECORDS SUMMARY | 2025-01-27 21:01 | XMS_ITS | Clinical Summary ---
Author Organization [facility] Address [address] [place] [address] Phone Care Team Providers Care Weaving Inspector Name Role Phone Unavailable Primary Care Provider Unavailabl e Social History Tobacco UseTypesPacks/DayYears UsedDateSmoking Tobacco: Never Assessed CommentsUnknownSex and Gender InformationValueDate RecordedSex Assigned at Not on fileLegal JvoObscbs39/26/2022 10:31 AM ESTGender IdentityNot on file Sexual OrientationNot on file Plan of Treatment Health MaintenanceDue DateLast DoneCommentsCT Hovdiqqxhsad20/15/1962Colonoscopy 2Colorectal Cancer Nbazonlja40/15/1962FIT-DNA (Cologuard)1961FIT 1961HIV Pugxpdint49/15/1962Lipid Panel1961 6900Ctvdygkxszgcx40/15/1962 Yearly Adult Mbbhbsqn58/15/1962MMR Vaccines (1 of 1 - Standard series)1962 Hepatitis C Inranhgcr46/15/1980Cervical Cancer Eyvoeftly74/15/1983HPV/Cotest 1982Pap Smear1982DTaP/Tdap/Td Vaccines (1 - Tdap)11/06/1983Mammogram 2001Pneumococcal [...]
--- OUTSIDE RECORDS SUMMARY | 2025-01-27 21:01 | XMS_ITS | Clinical Summary ---
Author Organization [facility] Address [address] [place] [address] Care Team Providers Care Anatomic Pathology Manager Name Role Phone Merissa Mayfield MD Primary Care Provider [phone] Allergies Active AllergyReactionsCriticalityNoted KehiCkrdvvwdDgdhfyt98/21/2010 Other Reaction(s): other, Other: See Comments, Unknown severe headaches Ymwvczcnglrnin71/21/2010 Other Reaction(s): Intolerance, involuntary movements, other Sulfa AntibioticsItching,VhbtZrc8703/11/2014 Other Reaction(s): other Medications MedicationSigDispense QuantityRefillsLast FilledStart DateEnd DateStatus busPIRone (Buspar) 10 MG tablet Take 10 mg by mouth in the morning and 10 mg before bedtime.05/08/2023ctive HYDROcodone-acetaminophen ([place]) 5-325 MG tablet TAKE 1 TABLET BY [...] tablet Take 50 mg by mouth at zdfstlh4605/08/2023ctive venlafaxine XR (Effexor XR) 150 MG 24 [...] InformationValueDate RecordedSex Assigned at BirthNot on fileLegal LdbJmjvpq74/01/2023 8:35 PM EDTGender Identity Not on fileSexual OrientationNot on file Last Filed Vital Signs Vital SignReadingTime TakenCommentsBlood Sthcjirb388/70007/21/2019 12:00 PM EDT Pulse--Zkdumfxdgln06.5 ??C (97.7 ??F)06/04/2023 10:45 AM EDTRespiratory Rate-- Oxygen Saturation--Inhaled Oxygen Concentration--Yylgfv280 kg (223 lb)06/04/2023 10:45 AM GBULirscn437 cm (5' 3 )06/04/2023 10:45 AM EDTBody Mass Index39.5 06/04/2023 10:45 AM EDT Plan of Treatment Not on file Insurance Care Teams Team MemberRelationshipSpecialtyStart DateEnd Date Merissa Mayfield MD [facility]05/12/23
--- OUTSIDE RECORDS SUMMARY | 2025-02-03 06:45 | XMS_ITS ---
Author Organization [employer] [facility] Address [address] [place] [address] Care Team Providers Care Cyber Instructor Name Role Phone Pam Wagoner Primary Care Provider [phone] Kelsey Granado Unavailable [phone] REASON FOR VISIT Pt is a 64 year old female here today for a 1 month f/u Encounters Encounter Location Date Provider Diagnosis [facility] [address] [place] [address] 02/03/2025 Kelsey Granado Plan Of Treatment Next Appt Details Provider Name:Kelsey samuels, 03/11/2025 04:00:00 PM, [address] [place], [address], Progress Notes * NICOLAS HARRISDOB:1960 ( 64 yo F)Acc No.[id number]:02/03/2025 Behavioral Health Patient: Jossie FRANCISNICOLAS :?Kelsey GranadoDOB:1960???Age:64 Y???Sex: FemaleDate:02/03/2025Phone:[phone]:[address], [place]-[id number]:Pam Wagoner Subjective: * Chief Complaints: * P t is a 64 year old female here today for a 1 month f/u Billing Information: * Procedure Codes: * Electronic signature of CONNIE ÁlvarezP on 02/23/2025 at 08:18 PM EST Sign off status: Pending * Provider: Jim Granado Date: 1 04/05/2024 Generated for Printing/Faxing/eTransmitting on:?02/23/2025 08:18 PM EST
--- OUTSIDE RECORDS SUMMARY | 2025-02-23 20:18 | XMS_ITS | Clinical Summary ---
Author Organization [facility] Address [address] [place] [address] Phone Care Team Providers Care Public Works Manager Name Role Phone Unavailable Primary Care Provider Unavailabl e Social History Tobacco UseTypesPacks/DayYears UsedDateSmoking Tobacco: Never Assessed CommentsUnknownSex and Gender InformationValueDate RecordedSex Assigned at Not on fileLegal UxrZdobrr86/26/2022 10:31 AM ESTGender IdentityNot on file Sexual OrientationNot on file Plan of Treatment Health MaintenanceDue DateLast DoneCommentsCT Dcxkukcpmyhq06/15/1962Colonoscopy 2Colorectal Cancer Mmgszrkxz25/15/1962FIT-DNA (Cologuard)1961FIT 1961HIV Towlrqjuw38/15/1962Lipid Panel1961 6336Kzbryvrastewr62/15/1962 Yearly Adult Avnluybu43/15/1962MMR Vaccines (1 of 1 - Standard series)1962 Hepatitis C Ypgmaqotb56/15/1980Cervical Cancer Qgqlghkxy08/15/1983HPV/Cotest 1982Pap Smear1982DTaP/Tdap/Td Vaccines (1 - Tdap)11/06/1983Mammogram 2001Pneumococcal [...]
--- OUTSIDE RECORDS SUMMARY | 2025-02-23 20:18 | XMS_ITS | Patient Health Record ---
Author Organization [facility] Address [address] [place] [address] Care Team Providers Care Carbon Capture Power Plant Manager Name Role Phone Pam Wagoner Primary Care Provider [phone] Kelsey Granado Unavailable [phone] Allergies Allergen (clinical drug ingredient) Drug/Non Drug [...] MG Tablet1 tablet Orally twice a dayActivepyRIDostigmine Sanders 60 MG Tablet1 tablet Orally two tabletsActiveDoxepin [...] hurting yourself in some wayNot at allTotal Kpwoh95VwaoozkpsdfxjAhpcrfmh DepressionDrug/Alcohol:Social InfoQuestionAnswerNotesAUDIT-C (Standard)Did you have a drink [...] in the past year?Monthly or less (1 point)Fsxqap9VamxitpcezdkidFaldppjwBGDH-84 (2020 Edition)1. Have you used drugs other [...] Status W/U Status Risk Notes Problem Anxiety (70634842) Anxiety (F41.9) ActiveconfirmedProblemBody mass index 40+ - severely obese (642454893)BMI 45.0- 49.9, adult (Z68.42)ActiveconfirmedProblemMood disorder (60482107)Mood disorder (F39)ActiveconfirmedProblemBody mass index 40+ - morbidly obese (784773020)BMI 40.0-44.9, adult (Z68.41)ActiveconfirmedProblemInsomnia (333714959)Insomnia disorder with non-sleep disorder mental comorbidity (G47.00)Activeconfirmed Vital Signs Heart Rate 78 /min 01/03/2025 Ajogcket09 %01/03/2025lood pressure dugcjfcfu43 mm Hg01/03/20253926Qzrdgh39.5 in 01/03/2025lood pressure lxohfqhu300 mm Hg01/03/20253863Roeyyg826.0 lbs10MI 44.79 kg/m201/03/2025 Encounters Encounter Location Date Provider Diagnosis [facility] [address] [place] [address] 03/30/2024 Pam Wagoner [facility] [place] [address]/ Pam CoxMood disorder [address] [place] [address]/5Christy [facility] [place] [address]/5Christy CoxMood disorder [address] [place] [address]/5Christy CoxMood disorder [address] [place] [address]/5Christy CoxMood disorder [address] [place] [address]/5Christy CoxMood disorder [address] [place] [address]/5Christy Wagoner Mood disorder [address] [place] [address]/Leslie NeubergerMood disorder [address] [place] [place] [address]/4Christy CoxMood disorder F39 ; 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 and Anxiety F41.9[facility] [place] [place] [address]/5Christy CoxMood disorder F39 ; Anxiety F41.9 and 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[facility] [place] [facility] [place] [place] [address]/Leslie NeubergerMood disorder F39 ; Anxiety F41.9 and 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 [address]/Kelsey NeubergerMood disorder F39 ; Anxiety F41.9 and [...] Details Provider Name:Kelsey samuels, 03/11/2025 04:00:00 PM, [address] [place] [address], [phone], Insurance Providers Payer Name Payer Address Payer Phone Subscriber Number Group Number Insured Name Patient Relationship to Insured Coverage Start Date Coverage End Date ANTHEM Primary [address] [place] [address] [phone] [id number] KIMBERLY, NICOLAS Self - patient is the insured 4 4 [employer] [place] [employer] [address] [place] [address] [id number] KIMBERLY, NOLASelf - patient is the /01/2025[employer] [facility] [address] [place] [id number], NOLASelf - patient is the cysilnh85 2024 Medical (General) History Medical History History ICD Code diabetes mallitus rheumatoid arthritisdepressionSVTPOTSSurgical History Surgery Date(Month/Year) hysterectomy, total with bilateral salpi grant-oopherectomy (BSO) 1994 back surgery 2009 hand surgery 03/14 gallbladder 1979 Hospitalization History Reason Date(Month/Year) see surgical
--- OUTSIDE RECORDS SUMMARY | 2025-02-23 20:19 | XMS_ITS | Clinical Summary ---
Author Organization [facility] Address [address] [place] [address] Care Team Providers Care Rn Cvicu Name Role Phone Merissa Mayfield MD Primary Care Provider [phone] Allergies Active AllergyReactionsCriticalityNoted QehtTmhgtkoyUtjfyxtFatec65/19/2014 HmfefuphuclldjQqjmxdm76/21/2010 Other Reaction(s): Intolerance, involuntary movements, other Metoclopramide AzfIvpni93/19/2014Sulfa (Sulfonamide Antibiotics)Other03/11/2014 Medications MedicationSigDispense QuantityRefillsLast FilledStart DateEnd [...] mouth once daily as directed. 90 tablet ctive metoprolol succinate XL (Toprol-XL) 25 mg 24 hr tablet Indications:Acute on chronic congestive heart failure, unspecified heart failure type (CMS/HCC)Take 1 tablet (25 mg) by mouth once daily as directed. Do not crush or chew. 90 tablet ctive sacubitril-valsartan (Entresto) 24-26 mg tablet Indications:Acute on [...] by mouth in the morning. 90 tablet 304/07474407/21/2025ctive Active Problems ProblemNoted DateDiagnosed DateBMI 40.0-44.9, adult12/14/2024bnormal findings on diagnostic imaging of heart and coronary nmunifzbkfr53/22/2025bnormal stress test07/06/2024oronary artery ebbrqui9407/06/2024Mood /27/2025 Valquqaukqwsgz28/19/2025 Assessment & Plan (05/12/2024 3:04 AM EST): Continue with home medication, levothyroxine 50 mcg tablet p.o. daily Sdpixyw1505/11/20245706Wyfvpxun01/18/2025ute on chronic congestive heart failure, unspecified heart failure type05/11/2024NSTEMI (non-ST elevated myocardial infarction)05/11/2024Fluid fluekrov94/18/2025Status post four vessel coronary artery asunhr9112/15/2023Multiple vessel coronary artery qyxtyba1012/10/2023Multi- vessel coronary artery iuujskke60/16/2024oronary artery disease involving ak chin coronary artery of ak chin heart without angina /14/2024Unstable vmrypn4512/05/2023iabetes mellitus type II, non insulin kevgpfiga35/11/2024 Assessment & Plan (05/12/2024 3:04 AM EST): Insulin lispro per sliding scale before meals and at bedtime. Continue home medication Januvia 100 mg p.o. daily Assessment & Plan (12/04/2023 4:05 PM EDT): Diabetes is managed by PCP JOHN (dyspnea on exertion)12/03/2023 Assessment & Plan (05/12/2024 [...] to medications/ or contrast, stroke, . 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 Will increase pyridostigmine to 120 mg qid, continue adequate hydration, additional salt to diet. Monitor b/p and SBP 140-150 is ok with known POTS. Chest pain01/22/2022 Assessment & Plan (12/04/2023 4:11 PM EDT): Chest tightness and LOPEZ will plan for cardiac cath in light of severe coronary calcifications noted, DM, HTN, HPL, abnormal ECG Zuegubzpznnd54/01/2022ulmonary dulnjbcw05/01/2022upraventricular tachycardia 01/22/2022 Assessment & Plan (09/11/2022 9:41 AM EDT): Stable- continue toprol Primary pulmonary dmizalaefmer55/18/2014 Assessment & Plan (09/11/2022 9:40 AM EDT): Reports continued LOPEZ Will repeat echocardiogram to assess cardiac function and rt sided pressures Chronic pulmonary heart ljjbxdw5104/14/2013Morbid jvkfvzk0104/14/2013 Assessment & Plan (12/04/2023 4:01 PM EDT): Managed per PCP Recommended weight loss Obstructive sleep apnea srmwnyxt34/22/2014 Assessment & Plan (05/12/2024 3:04 AM EST): Per primary team to consider addition of CPAP/BiPAP nightly Benign essential ddsicwfhdipu82/19/2014 Assessment & Plan (05/12/2024 3:07 AM EST): [...] AM EDT): Hypertension is stable Continue toprol Pjxirww0404/11/2013 Assessment & Plan (09/11/2022 9:42 AM EDT): Continued LOPEZ will repeat echocardiogram to assess rt sided pressures, recommended pt to quit smoking. Infarction of lung due to iatrogenic pulmonary beajjlbu34/19/2014 Encounters DateTypeDepartmentCare LcmiOkhsimdjjrf40/12/2025 11:20 AM ESTAncillary Procedure [facility] [address] [place] [phone] Awareness of afglzkgaqf82/11/2025Orders Only [facility] [address] [place] [address] Mika Martinez MD 01/17/2025 8:30 AM EDT - 01/17/2025 8:50 AM EDTSurgery [facility] [address] [place] [address] Konrad Campoverde MD Loop insertion [36867 (CPT??)]01/17/2025 6:50 AM EDT - 01/17/2025 9:52 AM EDT Hospital Encounter [facility] [address] [place] [phone] Konrad Campoverde MD Palpitations Discharge Disposition: Home or Self Care (01)01/17/20253675Qpmeni25/20/2025Travel 12/29/2024Telephone [facility] [address] [place] [facility] [place] [phone] Stacy Singh MA 12/29/2024Orders Only [facility] [address] [place] [facility] [place] [address] Stacy Singh MA Bilateral lower extremity edema (Primary Dx); Dyspnea on rxytvbzp82/23/2025 1:00 PM EDTOffice Visit [facility] [address] [place] [facility] [place] [phone] Konrad Campoverde MD Palpitations (Primary Dx)12/14/2024Orders Only [facility] [address] [place] [facility] [place] [address] Emerita Ramos MA Palpitations (Primary Dx)12/13/2024Orders Only [facility] [address] [place] [facility] [place] [address] Emerita Ramos MA Abnormal PFT (Primary Dx)12/02/2024Telephone [facility] [address] [place] [facility] [place] [address] Stacy Singh MA 12/01/2024Orders Only [facility] [address] [place] [facility] [place] [phone] Provider, MD Massimo from Last 3 Months Immunizations ImmunizationAdministration DatesNext DueUnspecified Sars-Cov-2 Vaccination 05/17/2020,04/26/2020 Family History Medical HistoryRelationNameCommentsAlcohol abuseBrotherMigrainesDaughter 1Anemia FatherJames McNeishAtrial fibrillationFatherJames McNeishDiabetes type IIFather Rubio McNeishHypertensionFatherJames McNeishObesityFatherJames McNeishBreast cancerMotherBeverly McNeishCancerMotherBeverly McNeishDepressionMotherBeverly McNeishAutoimmune diseaseNephewPOTSNephewPOTSNieceLupusSisterAneurysmNeg Hx Sudden deathNeg HxRelationNameStatusCommentsBrotherDaughter 1AliveDaughter 2 AliveFatherJames McNeishDeceasedMotherBeverly McNeishDeceasedNephewAliveNiece AliveSister Social History Tobacco UseTypesPacks/DayYears UsedDateSmoking Tobacco: ExexxaZtsdedziqd102 Smokeless Tobacco: Never Tobacco Cessation:Counseling Given: Not Answered Alcohol UseStandard Drinks/WeekCommentsYes0 (1 standard drink = 0.6 oz pure alcohol)maybe every 2 or 3 months I have one while [facility]COMM[facility]ITY [facility] UtilitiesAnswerDate RecordedIn the past 12 months has the [employer], gas, oil, or water Adtuitive threatened to shut off services in your home?No05/11/2024Humiliation, Afraid, Rape, and Kick questionnaireAnswerDate RecordedWithin the last year, have you been afraid of your partner or ex-partner?No05/11/2024Emotionally AbusedNot on file05/11/2024Physically AbusedNot on file05/11/2024Sexually AbusedNot on file 05/11/2024Overall Financial Resource Strain (CARDIA)AnswerDate RecordedHow hard is it for you to pay for the very basics like food, housing, medical care, and heating?Somewhat hard05/11/2024PHQ-2AnswerDate RecordedPatient Health Questionnaire-2 Yqpjg816UT Safety & EnvironmentAnswerDate RecordedWithin the last year, [...] homeless or living in a retirement (including now)?05/11/2024Hunger Vital SignAnswerDate RecordedWithin the past 12 months, you worried that your food would run out before you got the money to buymore.Never true05/11/2024Ran Out of Food in the Last YearNot on file05/11/2024CommentsNoSex and Gender InformationValue Date RecordedSex Assigned at LvymtArzide54/19/2025 3:28 PM EDTLegal SexFemale 09/19/2021 11:12 PM EDTGender AjxspogdVbjjgp42/19/2025 3:28 PM EDTSexual OrientationHeterosexual or Frcxllhn84/19/2025 3:28 PM EDT Last Filed Vital Signs Vital SignReadingTime TakenCommentsBlood Dqxkcopc817/6010 9:35 AM EDT Pmbvf138301/17/2025 9:35 AM KZSHdpwzsoicrx15.3 ??C (97.4 ??F)05/14/2024 3:26 PM ESTRespiratory Qjrk3591 9:35 AM EDTOxygen Mxpqdsxaqj675%01/17/2025 9:35 AM EDTInhaled Oxygen Concentration--Jqodtu391 kg (241 lb)01/17/2025 7:08 AM EDT Bbnamv128.9 cm (5' 1 )01/17/2025 7:08 AM EDTBody Mass Index45.5401/17/2025 7:08 AM EDT Plan of Treatment Health MaintenanceDue DateLast DoneCommentsCT Xnvaztdaicls97/15/1962Colonoscopy 2Colorectal Cancer Verthdrlw53/15/1962FIT-DNA1961FIT1961 FOBT5136Nslmxtrvzccmi49/15/1962Diabetes: Retinopathy Hbuyrjkxe53/15/1972 Depression Ndjpnxzgw52/15/1974Diabetes: Urine Protein Hvvgvgsyu53/15/1981 Pneumococcal Vaccine: Pediatrics (0 to 5 Years) and At-Risk Patients (6 to 64 Years) (1 of 2 - PCV)1980Pap Smear1982Adult Dktjygb1911/06/1983 Cervical Cancer Rohwwumzu10/15/1992HPV/Inqwvk8811/06/19912359Vpadnschh08/15/2002Zoster Vaccines (1 of 2)11/06/2011Diabetes: Hemoglobin A1C03/06//4COVID-19 Vaccine ( - season)5005/17/2020, 05/17/2020, 04/26/2020, Additional history existsInfluenza Vaccine (#1)11/22/2024HIB [...] Expiration DateModel / Serial / LotClosure,Flx,Watchman,Michelle,35mm - [id number] Implanted:Qty: 1 on 12/15/2023 by [facility]DeviceN/A: ChestBoston Kygdpjhytz76/01/[id number] / / [id number]:Left atrial appendage clipGeoffrey Delgado Mr 2.50 X 24 - [id number] - [id number] Implanted:Qty: 1 on 07/21/2024 by [facility]ito Bull [facility] CenterDrug Eluting StentRight: [facility] ioBridge [id number] / [id number] / [id number],Cardiac,Lux,Dxii+[facility] - [id number] - [id number] Implanted:Qty: 1 on 01/17/2025 by [facility]de [facility] CenterImplantable Loop RecorderN/A: [facility] Ophhiowrxx98/14/2138Y753 / [id number] / V Plate 4 Holes Implanted:Qty: 1 on 12/15/2023 by [facility] at [facility] CenterN/A: [id number] / / 16mm Screw Gold Implanted:Qty: 4 on 12/15/2023 by [facility] at [facility] CenterN/A: [id number] / / Procedures Procedure NamePriorityDate/TimeAssociated DiagnosisCommentsCARDIAC DEVICE CHECK CHECK - OSKURBLuyhscv88/12/2025 12:20 PM EST Awareness of heartbeats CARDIAC DEVICE CHECK - REMOTE - LOOP RECORDER (ILR)Cswfcjd9902/01/2025 12:00 AM ESTLOOP QXXBIBWNBNxkafqj20/27/2025 9:33 AM EDT Palpitations Procedure Note - [...] the sternum on the left using the Sprioific tool. The loop recorder was then injected [...] Konrad Campoverde MD Cardiac Electrophysiology. PULMONARY FUNCTION KHJWKJQZezjhai55/05/2025 2:15 PM EDTHEMOGLOBIN N5YYfd-Ev 12/06/2023 6:18 AM EDT from Last 3 Months or Most Recently Relevant to Health Maintenance Results * CARDIAC DEVICE CHECK - REMOTE - LOOP RECORDER (ILR) (02/02/2025 12:20 PM EST) Specimen (Source)Anatomical Location / LateralityCollection Method / Volume Collection TimeReceived Time Narrative Authorizing ProviderResult TypeResult StatusKonrad Campoverde [facility] [place] CARDIAC DEVICE PROCEDURESFinal ResultPerforming OrganizationAddressCity/State/ZIP Code Phone Number CPACS * Cardiac device check - Remote loop recorder (ILR) (02/01/2025 12:00 AM EST) Anatomical RegionLateralityModalityOtherSpecimen (Source)Anatomical Location / LateralityCollection Method / VolumeCollection TimeReceived Time02/01/2025 Narrative Authorizing ProviderResult TypeResult StatusMika Martinez [facility] [place] IMPLANTABLE CARDIAC DEVICE PROCEDURESFinal Result * Pulmonary function testing (11/26/2024 2:15 PM EDT)Anatomical RegionLaterality ModalityOther Narrative Authorizing ProviderResult TypeResult StatusHistorical Provider MDPFT ORDERABLES Final Result * Hemoglobin A1c (12/06/2023 6:18 AM EDT)ComponentValueRef RangeTest Method Analysis TimePerformed AtPathologist SignatureHemoglobin A1C5.84.0 - 6.0 % 12/07/2023 10:38 AM [facility] ([facility])Estimated Average Fqmwqhf808 mg/dL12/07/2023 10:38 AM [facility] ([facility])Specimen (Source) Anatomical Location / LateralityCollection Method / VolumeCollection Time Received TimeBloodVenous blood specimen / UnknownArterial Line / Unknown 12/06/2023 6:18 AM EDT12/06/2023 7:06 AM EDT Narrative Authorizing ProviderResult TypeResult StatusKenramana Power CNPLAB BLOOD ORDERABLESFinal ResultPerforming OrganizationAddressCity/State/ZIP CodePhone Number [facility] ([facility]) [address] [place] [address] from Last 3 Months or Most Recently Relevant to Health Maintenance Insurance Advance Directives * Full Code (Latest Code Status on File) Date ActivatedDate InactivatedComments07/21/2024 2:29 PM07/21/2024 8:36 PM * Full Code Date ActivatedDate InactivatedComments05/11/2024 10:28 PM2 5:54 PM * Full Code Date ActivatedDate VapxopzmrhkMtrtelng17/4/2024 3:53 PM10 5:46 PM * Full Code Date ActivatedDate InactivatedComments12/05/2023 5:22 PM12/08/2023 3:54 PM * Full Code Date ActivatedDate InactivatedComments12/05/2023 3:56 PM12/05/2023 5:22 PM Care Teams Team MemberRelationshipSpecialtyStart DateEnd Date Merissa Mayfield MD [address] [facility] #A [facility]01/22/22
== END 2025-02-23 20:16 | disposition home or self-care (01) ==
PROVIDERS: PCP Family Medicine; Visit Provider Internal Medicine Cardiovascular Disease
DX: G47.33 Obstructive sleep apnea (adult) (pediatric) (principal)
CPT/HCPCS: 95810